=== PATIENT | female | born 1955 | race Caucasian/White ===

== ENCOUNTER 2021-12-27 04:00 | Outpatient (CLI) | payer MEDICARE, MEDICAID, SELFPAY ==
--- OUTSIDE RECORDS SUMMARY | 2022-01-03 10:57 | XMS_ITS | Encounter Summary ---
:1955 Author Organization [facility] Address [address] [place] [address] Care Team Providers Name Role Phone Elsewhere, Pcp Primary Care Provider Unavailable Reason for Visit MRI/CAT/PET Scan (Routine) - Authorized Specialty Diagnoses / Procedures Referred By Contact Refer red To Contact Radiology Diagnoses [place] [facility] Arun Waterman M.D. [facility] Procedures CT Abdomen Ablation [address] [place], [place] [address] Referral ID Status Reason Start Date Expiration Date Visits V isits Requested Authorized [id number] Authorized 05/08/2021 05/08/2022 1 1 Encounter Details Date Type Department Care Team Description 06/26/2021 Hospital Encounter Department of Arun Waterman M.D. [address] [place] [id number] Canceled (Patient: Radiology, Wily Dale M.D. [address] [place] [phone] Request) [facility] in [place], [place] [address] [place] [address] Social History Tobacco Use Types Packs/Day Years [...] do you attend yazdanism or Never 2018 uatsdin services? Do you [...] documented as of this encounter Care Teams Accounts Specialist Relationship Specialty Start Date End Date Elsewhere, Pcp PCP - General Internal Medicine 07/27/18 documented as of this encounter
--- OUTSIDE RECORDS SUMMARY | 2022-01-03 10:57 | XMS_ITS | Encounter Summary ---
:1955 Author Organization [facility] Address [address] [place] [address] Care Team Providers Name Role Phone Elsewhere, Pcp Primary Care Provider Unavailable Reason for Referral Outpatient (Routine) - Authorized Specialty Diagnoses / Procedures Referred By Contact Refer red To Contact Diagnoses Arun Lee M.D. [facility] Procedures US Assisted Guidance [address] [place], [place] [address] Referral ID Status Reason Start Date Expiration Date Visits V isits Requested Authorized [id number] Authorized 05/08/2021 05/08/2022 1 1 RI/CAT/PET Scan (Routine) - Authorized Specialty Diagnoses / Procedures Referred By Contact Refer red To Contact Radiology Diagnoses Arun Lee M.D. [facility] Procedures CT Abdomen Ablation [address] [place] [address] Referral ID Status Reason Start Date Expiration Date Visits V isits Requested Authorized [id number] Authorized 05/08/2021 05/08/2022 1 1 utpatient (Routine) - Authorized Specialty Diagnoses / Procedures Referred By Contact Refer red To Contact Diagnoses Arun Lee M.D. [facility] Procedures US Kidney Left [address] [place] [address] Referral ID Status Reason Start Date Expiration Date Visits V isits Requested Authorized [id number] Authorized 05/08/2021 05/08/2022 1 1 utpatient (Routine) - Authorized Specialty Diagnoses / Procedures Referred By Contact Refer red To Contact Vascular Medicine Diagnoses [place] [facility] Arun Waterman M.D. [place] [facility] [address] [place] [address] Referral ID Status Reason Start Date Expiration Date Visits V isits Requested Authorized [id number] Authorized 05/08/2021 05/08/2022 1 1 utpatient (Routine) - Authorized Specialty Diagnoses / Procedures Referred By Contact Refer red To Contact Anesthesiology Diagnoses [place] [facility] Arun Waterman M.D. [place] [facility] [address] [place], [place] [address] Referral ID Status Reason Start Date Expiration Date Visits V isits Requested Authorized [id number] Authorized 05/08/2021 05/08/2022 1 1 CLE TRIMMER Encounter Details Date Type Department Care Team Description 05/08/2021 Orders Only Department of [facility] (Primary Radiology, Moise MortonNEdilma Sánchez) [facility], in [place], [place] (Work) [address] [place] [phone] Social History Tobacco Use Types Packs/Day [...] or relatives? How often do you attend mosque or Never 2018 yarsanism services? Do you belong to any clubs or No 02/26/2019 organizations such as mosque groups, unions, fraternal or athletic groups, or [...] documented as of this encounter Care Teams Table Runner Relationship Specialty Start Date End Date Elsewhere, Pcp PCP - General Internal Medicine 07/27/18 documented as of this encounter
--- OUTSIDE RECORDS SUMMARY | 2022-01-03 10:57 | XMS_ITS | Clinical Summary ---
:1955 Author Organization [facility] Address [address] [place] [address] Care Team Providers Name Role Phone Elsewhere, Pcp Primary Care Provider Unavailable Source Comments Patient records contain information from all sites at [facility]. For routine questions regarding patient records, call [phone] during business hours, M-F 8:00 AM - 5:00 PM Central Time. Record requests for emergency care only can be directed to [phone] at any time.[facility] Allergies Active Allergy Reactions Severity Noted Date [...] Dr. Yeager on 04/20/2019 -admitted at the [facility] from 06/22/2018 - 06/23/2018, where [...] [facility]. Fibromyalgia 06/28/2015 Overview: On duloxetine. Pain currently [...] or relatives? How often do you attend judaism or Never 2018 latter day services? Do you belong to any clubs or No 02/26/2019 organizations such as judaism groups, unions, fraPromisePay or athletic groups, or school groups? How [...] Comments Blood Pressure 148/86 03/30/2020 1:16 PM PRIVACY COMPLIANCE MANAGER Pulse 61 03/30/2020 1:16 PM PRIVACY COMPLIANCE MANAGER Temperature 36.1 ??C (97 ??F) 03/30/2020 1:16 PM PRIVACY COMPLIANCE MANAGER Respiratory Rate 22 04/21/2019 11:15 AM PRIVACY COMPLIANCE MANAGER Oxygen Saturation 98% 03/30/2020 1:16 PM PRIVACY COMPLIANCE MANAGER Inhaled Oxygen Concentration - - Weight 90.2 kg (198 lb 13.7 oz) 03/30/2020 1:16 PM PRIVACY COMPLIANCE MANAGER Height 164.4 cm (5' 4.72) 03/30/2020 1:16 PM PRIVACY COMPLIANCE MANAGER Body Mass Index 33.37 03/30/2020 1:16 PM PRIVACY COMPLIANCE MANAGER Plan of Treatment Health Maintenance Due Date [...] e / Group Dates MEDICARE MEDICARE A [id number] 2004-Prese [address] [place] [address] [facility] [id number] 2021-Prese [phone] [address] Medicaid HMO nt 25 [place] [address] Advance Directives For more information, please contact: [phone] Latest Code Status on File Code Status Date Activated Date Inactivated Comments Full Code 04/19/2019 9:35 AM 04/21/2019 1:37 PM Full Code: Not Discussed Due to: Patient not available Full Code 07/06/2018 8:47 AM 04/19/2019 7:46 AM Full Code: Discussed Full Code 06/29/2018 6:17 PM 07/06/2018 8:47 AM Full Code: Not Discussed Due to: Patient not available Care Teams Goods Layer Relationship Specialty Start Date End Date Elsewhere, Pcp PCP - General Internal Medicine 07/27/18
--- OUTSIDE RECORDS SUMMARY | 2022-01-03 10:57 | XMS_ITS | Clinical Summary ---
:1955 Author Organization [employer] [facility] [place] [address] Care Team Providers Name Role Phone Kandace Mckeon Primary Care Provider Parish Ruffin MD Unavailable Unavailable Kwaku Wild MD Unavailable Kari Hunt PhD, LP Unavailable [phone] Allergies Active Allergy Reactions Severity Noted Date [...] 22 warfarin (COUMADIN) Take by mouth 6 34 Tablet 0 12/28/19 Active 2 mg mg (2 mg x 3 22 tabletIndications: tablets) every New onset atrial Sun, Wed, Fri; 4 fibrillation (HC), mg (2 mg x 2 Anticoagulation tablets) all monitoring, INR other days in the range 2.5-3.5 evening OR as directed warfarin (COUMADIN) Take by mouth 6 60 Tablet 0 11/22/1911/23/2 Discontinued 2 mg mg (2 mg x [...] 22 022 (Other - add tabletIndications: every Sun, Wed, note to specify New onset atrial Fri; 4 mg (2 mg x (E-cancel not fibrillation (HC), 2) all other days sent)) Anticoagulation in the evening OR monitoring, INR as directed range 2.5-3.5 warfarin (COUMADIN) Take by mouth 6 20 Tablet 0 12/21/19 1008/23 Discontinued 2 mg mg (2 mg x 3) 22 022 (Other - add tabletIndications: every Sun, Wed, note to specify New onset atrial Fri; [...] Hypertensive heart disease with heart failure 11/26/19 21 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 Anticoagulation monitoring, INR [...] Encounters Date Type Specialty Care Team Description 12/27/2021 Orders Only Scanner <No scans attac hed> 12/27/2021 Anticoagulation 1, [facility] (warfarin) Clinic 12/26/2021 Orders Only Lab, [facility] 12/26/2021 [...] Lab, [facility] 12/11/2021 Travel 12/11/2021 Telephone DeterKandace cerna Anticoagulati on (AC Venus, DO Orders) 12/06/2021 Orders Only Scanner <No scans attac hed> 12/06/2021 Orders Only Scanner <No scans attac hed> 11/30/2021 Refill DetertKandace Refill Reques t Venus, DO (Rizatriptan) 11/21/2021 Office Visit Kari Hunt Individual Kimberly Chaparro, PhD, LP 11/21/2021 Anticoagulation 1, [facility] (warfarin) Clinic 11/20/2021 Orders Only Lab, [facility] 11/20/2021 Travel 11/14/2021 Office Visit Kari Hunt Individual Kimberly Chaparro, PhD, LP 11/14/2021 Anticoagulation 1, [place] [facility]tico[facility] (warfarin) Clinic 11/13/2021 Orders Only Lab, [facility] Lab 11/13/2021 Ancillary Procedure 11/13/2021 Telephone Kandace Mckeon Results (INR) DO Venus 11/13/2021 Travel 11/07/2021 Anticoagulation 1, [facility] ([facility]) (warfarin) Clinic 11/06/2021 Orders Only Lab, [facility] Anticoagulation 11/06/2021 Travel 10/31/2021 Anticoagulation 1, [facility] Inr Anticoagulat ion (warfarin) Clinic 10/30/2021 Orders Only Lab, [facility] Lab 10/29/2021 Office Visit Kari Hunt Individual Therapy Krysta, PhD, LP 10/29/2021 Travel 10/18/2021 Refill DeterKandace cerna Refill Reques t Venus DO (Antifungal (Clotrimazole), Ventolin Hfa) 10/17/2021 Office Visit Kandace Mckeon Memory Loss; DO Venus Palpitations; M edication Management (met oprolol is taking 50 mg twice a day) 10/17/2021 Travel 10/10/2021 Anticoagulation 1, [place] [facility] (warfarin) Clinic (Lab/[facility]) 10/09/2021 Orders Only Lab, [facility] 10/09/2021 Travel 10/08/2021 Refill DetertKandace Refill Reques t (METOPROL Venus, DO SUC TAB 100MG E R) 10/03/2021 Telephone Kari Hunt Follow Up ( Returning Krysta, PhD, LP call) from Last 3 Months Immunizations Name Administration Dates Next Due AMB Influenza, IIV4 PF (=>6 mos 12/23/2019 Flulaval,Fluzone Fluarix)(Flu Clinic Only) COVID-19 vaccine (Moderna 05/04/2020, 04/06/2020 100mcg/0.5mL) PF, MDV COVID-19 vaccine ([employer] 01/19/2021 30mcg/0.3mL) PF, MDV Influenza RIV4 (Age [...] Encounters Date Type Specialty Care Team Description 01/08/2022 Orders Only Lab, [place] 01/16/2022 Office Visit Kari Hunt, PhD, LP [address] [facility] [place], [place] [address] (Wo rk) 01/23/2022 Office Visit Kari Hunt, PhD, LP [address] [place] [address] [place] [address] (Wo rk) 02/06/2022 Office Visit Kari Hunt, PhD, LP [address] [place] [address] [place] [address] (Wo rk) 02/13/2022 Office Visit Kari Hunt, PhD, LP [address] [facility] [place] [place] [address] (Wo rk) 04/04/2022 Office Visit Raulito Bruce, PhD, LP [address] [address] (Wo rk) 06/12/2022 Office Visit Kandace Mckeon ea, [address] [facility] [place] [place], [place] [address] (Wo rk) Health Maintenance [...] BLOOD Blood No Detert, PRESSURE-MAINTA Pressure Kandace Le panchito, INS BP LESS DO THAN 130/80 Follow up with General Yes Terence, providers by Reny Miranda, 06/21/17 ENVIRONMENTAL ASSISTANT Note: Formatting of this note might be d ifferent from the original. - appointment with dental provider by - appointment for DM eye exam and new ey eglasses by 06/21/17 Healthcare Directive General Yes Kam hay, Reny Miranda, ENVIRONMENTAL ASSISTANT Note: Formatting of this note might be d ifferent from the original. - work on completing healthcare directiv e by end of ACT episode Procedures Procedure Name Priority Date/Time Associated Diagnosis Comme nts SCAN-RADIOLOGY 12/27/2021 12:00 Results f or this REPORT AM CDT procedure are i n the results section. PROTIME-INR STAT 12/26/2021 1:38 New onset atrial [...] fibrillation (HC) from Last 3 Months Results SCAN-RADIOLOGY REPORT (12/27/2021 12:00 AM CDT) Narrative This result has an attachment that is no t available. Scanner OTHER (ABNORMAL) PROTIME-INR (12/26/2021 1:38 PM CDT)Only the most recent of8 results within the time period is included. athologist Signature INR 3.1 (H) <1.3 12/26/2021 [facility] 8:26 PM CDT LABORATORY-[facility] PROTIME 30.2 (H) 12.0 - 13.8 12/26/2021 [facility] sec 8:26 PM CDT LABORATORY-[facility] Specimen Anatomical Collection Method / Collection Time Recei dominguez Time (Source) Location / Volume Laterality Blood BLOOD SPECIMEN / Venipuncture / 12/26/2021 1:38 2021 1:38 Unknown Unknown PM CDT PM CDT Narrative [facility] LABORATORY-CENTRAL LABORAT ORY - 12/26/2021 8:26 PM [...] Organization Address City/State/ZIP Code Phon e Number [facility] [address] [place] [address] LABORATORY-CENTRAL 1999 LABORATORY (ABNORMAL) URINE ALBUMIN TO CREATININE RATIO, RANDOM (12/19/2021 1:43 PM CDT) Patholo gist Method Time Signature ALB RAND URINE 69.6 mg/L 12/20/2021 [facility] 6:57 AM CDT LABORATORY-[facility] CREATININE,URIN 0.65 g/L 12/20/[facility]21 [email or web address] AM [facility]T [facility] ALBUMIN TO 107.1 (H) <30.0 12/20/2021 [facility] CREATININE mg/g 6:57 AM CDT LABORATORY-[facility] RATIO,RAND UR creat TRAL LABORATORY Specimen Anatomical Collection Method Collection Time Receive d Time (Source) Location / / Volume Laterality Urine URINE SPECIMEN / Non-Blood / 12/19/2021 1:43 PM 12/19 1:43 Unknown Unknown CDT PM CDT Narrative [facility] LABORATORY-CENTRAL LABORAT ORY - 12/20/2021 6:57 AM [...] Organization Address City/State/ZIP Code Phon e Number [facility] meets [address] [place] [address] LABORATORY-CENTRAL 2000 LABORATORY (ABNORMAL) HEMOGLOBIN A1C MONITORING (POCT) (12/12/2021 2:19 PM CDT) Analysis Performed At Patho logist Time Signature HEMOGLOBIN A1C 6.5 (H) <=6.4 % 12/12/2021 [facility] MONITORING 2:32 PM CDT [place] (PO[facility] Specimen Anatomical Collection Method / Collection Time Recei dominguez Time (Source) Location / Volume Laterality Blood BLOOD SPECIMEN / Venipuncture / 12/12/2021 2:19 2021 2:23 Unknown Unknown PM CDT PM CDT Narrative [facility] - 2021 2:32 PM CDT ? [...] with : Untreated Anemias, Splenectomy ? Kandace Venus Mckeon DO CHEMISTRY Performing Organization Address City/State/ZIP Code Phon e Number [facility] [address] [place] [address] (ABNORMAL) BASIC METABOLIC PANEL (12/12/2021 2:19 PM CDT) Analysis Performed At [facility] logist Time Signature SODIUM 139 135 - 145 12/13/2021 [facility] mmol/L 2:26 PM [facility] POTASSIUM 3.9 3.5 - 5.0 12/13/2021 [facility] mmol/L 2:26 PM [facility] CHLORIDE 103 98 - 110 12/13/2021 [facility] mmol/L 2:26 PM [facility] CO2,TOTAL 27 21 - 31 12/13/2021 [facility] mmol/L 2:26 PM [facility] ANION GAP 9 5 - 18 12/13/2021 [facility] 2:26 PM [facility] GLUCOSE 205 (H) 65 - 100 12/13/2021 [facility] mg/dL 2:26 PM [facility] CALCIUM 9.1 8.5 - 10.5 12/13/2021 [facility] mg/dL 2:26 PM [facility] BUN 10 8 - 25 12/13/2021 [facility] mg/dL 2:26 PM [facility] CREATININE 0.99 0.57 - 12/13/2021 [facility] 1.11 mg/dL 2:26 PM [facility] BUN/CREAT RATIO 10 10 - 20 12/13/2021 [facility] HOSPITA L 2:26 PM [facility] eGFR 64 (L) >90 12/13/2021 [facility] mL/min/1.7 2:26 PM [facility] 3m2 LABORATORY Comment: As of 2021, [...] Organization Address City/State/ZIP Code Phon e Number [facility] [place]IP [address] [place] [address] [facility] [address] SCAN-EYE EXAM (12/06/2021 [...] For Patients: As a result of the 21st Century Cures Act, medical imaging exams and procedure reports are released immediately into your electronic medical record. You may view this report before your referring provider. If you have questions, please contact [facility] care provider. XR MAMMO CRYSTAL BILAT SCREEN [[id number]] CLINICAL HISTORY: ??This is an asymptoma tic 66 y.o. patient. INDICATION FOR EXAM: Mammogram Screening . TECHNIQUE: CC & MLO views were obtained. ??This study was evaluated with the assistance of Computer-Aided Detecti on. Breast Tomosynthesis was used in interpretation. COMPARISON FILM: Yes 10/19/20 [facility] 12/27/16 [facility] FINDINGS: ??The breasts have scattered a reas of fibroglandular density. There are no dominant masses, suspicious micro calcifications or areas of architectural distortion. Kandacejayden Warderyn BOOKER MAMMO from Last 3 Months Insurance Payer Benefit Plan / Subscriber ID Effective Dates Phone Addre ss Type Group MEDICARE PART B MEDICARE PART [id number] 2004-Presen ATTN: CLAIMS - HB USE ONLY B HB ONLY t [address] [place] [address] MEDICARE PPS HC MEDICARE [id number] 2004-Presen PO JASE X 2019 PPS [address] [place] [address] MEDICARE - PB MEDICARE PB [id number] 2004-Presen ATTN : CLAIMS USE ONLY ONLY t [address] [place] [address] UCARE [place] UCARE CONNECT [id number] 2021-Presen [address] [place] [address] Juni Metcalf Personal/Family Self 1955 [place] (Home) [address] [place] [address] Care Teams Washer And Capper Machine Operator Relationship Specialty Start Date End Date Bonifacio Mckeonara DO Venus PCP - General 12/25/09 [address] [place] [address] Parish Ruffin MD Pulmonology Pulmonary Medicine 12/04/11 Kwaku Wild MD Physical Medicine and 10/07/[address] [place] [id number] Kari Hunt, Psychologist Psychology 12/10/16 PhD, LP [address] [place] [address]
--- OUTSIDE RECORDS SUMMARY | 2022-01-03 10:57 | XMS_ITS | Encounter Summary ---
:1955 Author Organization [facility] Address [address] [place] [address] Care Team Providers Name Role Phone Elsewhere, Pcp Primary Care Provider Unavailable Encounter Details Date Type Department Care Team Description 05/09/2021 Orders Only Department of [place] [facility] Lab Exam (Primary Dx); Radiology, Gayla Leon, REdilmaNEdilma Contact With And (Suspected) Exposure To [address], in [phone] [place], [place] (Work) [address] [place] [phone] Social History Tobacco Use Types Packs/Day [...] or relatives? How often do you attend protestant or Never 2018 oriental orthodox services? Do you belong to any clubs or No 02/26/2019 organizations such as protestant groups, unions, fraternal or athletic groups, or [...] documented as of this encounter Care Teams Personal Financial Planner Relationship Specialty Start Date End Date Elsewhere, Pcp PCP - General Internal Medicine 07/27/18 documented as of this encounter
--- OUTSIDE RECORDS SUMMARY | 2022-01-03 10:57 | XMS_ITS | Encounter Summary ---
:1955 Author Organization [facility] Address [address] [place] [address] Care Team Providers Name Role Phone Elsewhere, Pcp Primary Care Provider Unavailable Encounter Details Date Type Department Care Team Description 05/09/2021 Clinical Communication Department of [place] Radiology, Homar Leon R.N. [facility] [phone] [place] [facility]) [address] [place] [address] Social History Tobacco Use Types [...] do you attend orthodox or Never 2018 bahai services? Do you [...] documented as of this encounter Care Teams Purse Maker Relationship Specialty Start Date End Date Elsewhere, Pcp PCP - General Internal Medicine 07/27/18 documented as of this encounter
--- OUTSIDE RECORDS SUMMARY | 2022-01-03 10:57 | XMS_ITS | Encounter Summary ---
:1955 Author Organization [facility] Address [address] [place] [address] Care Team Providers Name Role Phone Elsewhere, Pcp Primary Care Provider Unavailable Encounter Details Date Type Department Care Team Description 05/08/2021 Documentation Preoperative Evaluation Cristy Navarro, [place] in [place], [place], C.N.P ., M.S.N. [address] [place] [phone] (Wo rk) Social History Tobacco Use Types [...] or relatives? How often do you attend scientologist or Never 2018 caodaism services? Do you belong to any clubs or No 02/26/2019 organizations such as scientologist groups, unions, fraternal or athletic groups, or [...] The patient was not seen in [facility]. ICAL PHARMACIST documented in this encounter Plan of Treatment Not on filedocumented as of this encounter Visit Diagnoses Not on filedocumented in this encounter Additional Health Concerns Assessment Noted Time PHQ-9 Depression Total Score: 11 05/04/2013 4:05 PM CS T documented as of this encounter Care Teams Game Developer Relationship Specialty Start Date End Date Elsewhere, Pcp PCP - General Internal Medicine 07/27/18 documented as of this encounter
--- OUTSIDE RECORDS SUMMARY | 2022-01-03 10:57 | XMS_ITS | Encounter Summary ---
:1955 Author Organization [facility] Address [address] [place] [address] Care Team Providers Name Role Phone Elsewhere, Pcp Primary Care Provider Unavailable Reason for Visit Outpatient (Routine) - Closed Specialty Diagnoses / Procedures Referred By Contact Refer red To Contact Radiology Diagnoses Mass Kidney Ally Bar M.D. [address] [phone] Referral ID Status Reason Start Date Expiration Date Visits Requ ested Visits Authorized [id number] Closed 05/03/2021 05/03/2022 1 1 Encounter Details Date Type Department Care Team Description 05/09/2021 Virtual Visit Department of Ally Bar M.D. [address] [place] [phone] Mass Kidney (Primary Dx); Radiology, Cristy Sands APRN, C.N.P., M.S.N. [address] [place] [phone] Atrial Fibrillation Paroxysmal (HCC); [facility], in Unsteadin ess Gait Disorder Non Orthopedic; [place], [place] Anticoagulant Therapy [address] [place] [phone] Social History Tobacco Use Types Packs/Day Years [...] or relatives? How often do you attend samaritan or Never 2018 confucianist services? Do you belong to any clubs or No 02/26/2019 organizations such as samaritan groups, unions, fraternal or athletic groups, or [...] page the [facility] nurse pager at [phone] Friday through Friday 7 a.m. to 5 p.m. or contact the note author. We spent over half of a total 30 minutes with the patient in counseling and discussion and/or coordination of care as described above. PING COORDINATOR documented in this encounter Plan of Treatment Not on filedocumented as of this encounter Visit Diagnoses Diagnosis Mass Kidney - Primary Atrial Fibrillation Paroxysmal (HCC) Unsteadiness Gait Disorder Non Orthopedi c Anticoagulant Therapy documented in this encounter Additional Health Concerns Assessment Noted Time PHQ-9 Depression Total Score: 11 05/04/2013 4:05 PM CS T documented as of this encounter Care Teams Irrigation District Manager Relationship Specialty Start Date End Date Elsewhere, Pcp PCP - General Internal Medicine 07/27/18 documented as of this encounter
--- OUTSIDE RECORDS SUMMARY | 2022-01-03 10:58 | XMS_ITS | Encounter Summary ---
:1955 Author Organization [facility] Address [address] [place] [address] Care Team Providers Name Role Phone Elsewhere, Pcp Primary Care Provider Unavailable Encounter Details Date Type Department Care Team Description 05/02/2021 Hospital Encounter Department of Laboratory Yamile Watts M.D. [facility] Kidney Medicine and Pathology, [facility] in [place], [place] [address] [place] [address] Social History Tobacco Use Types Packs/Day [...] do you attend quaker or Never 2018 orthodoxy services? Do you belong to any clubs [...] Procedure Name Priority Date/Time Associated Comments Diagnosis AZ OSMOLALITY ASSAY Routine 05/02/2021 10:17 Resu lts for this URINE AM CARBON BLOCKS PRESS OPERATOR procedure are i n the results section. DIPSTICK, U Routine 05/02/2021 10:17 Results for this AM CARBON BLOCKS PRESS OPERATOR procedure are i n the results section. PH, RANDOM, U Routine 05/02/2021 10:17 Results fo r this AM CARBON BLOCKS PRESS OPERATOR procedure are i n the results section. MICROSCOPIC MANUAL Routine 05/02/2021 10:17 Resul ts for this AM CARBON BLOCKS PRESS OPERATOR procedure are i n the results section. URINALYSIS WITH Routine 05/02/2021 10:17 Mass Kidney Results for this MICROSCOPIC AM CARBON BLOCKS PRESS OPERATOR procedure are i n the results section. documented in this encounter Results Dipstick, Urine (05/02/2021 10:17 AM CARBON BLOCKS PRESS OPERATOR) [facility] gist Method Time Signature Hemoglobin, Negative Negative 05/02/2021 DTL QL, U 11:20 AM CARBON BLOCKS PRESS OPERATOR Leukocyte Negative Negative 05/02/2021 DTL Esterase, U 11:20 AM CARBON BLOCKS PRESS OPERATOR Nitrite, U Negative Negative 05/02/2021 DTL 11:20 AM CARBON BLOCKS PRESS OPERATOR Ketone, U Negative Negative 05/02/2021 DTL mg/dL 11:20 AM CARBON BLOCKS PRESS OPERATOR Glucose, U Negative Negative 05/02/2021 DTL mg/dL 11:20 AM CARBON BLOCKS PRESS OPERATOR Specimen Anatomical Collection Method Collection Time Receive d Time (Source) Location / / Volume Laterality Urine 05/02/2021 10:17 05/02/2021 AM CARBON BLOCKS PRESS OPERATOR 11:05 AM CARBON BLOCKS PRESS OPERATOR Kristen Watts M.D. LAB URINE ORDERABLES Performing Organization Address City/[facility] Phon e Number [facility] - [address] Osmolality, Urine (05/02/2021 10:17 AM CARBON BLOCKS PRESS OPERATOR) athologist Signature Osmolality, U 519 150 - 1150 05/02/2021 DTL mOsm/kg 12:05 PM CARBON BLOCKS PRESS OPERATOR Specimen Anatomical Collection Method Collection Time Receive d Time (Source) Location / / Volume Laterality Urine 05/02/2021 10:17 05/02/2021 AM CARBON BLOCKS PRESS OPERATOR 11:05 AM CARBON BLOCKS PRESS OPERATOR Kristen Watts M.D. LAB URINE ORDERABLES Performing Organization Address City/[facility] Phon e Number [facility] - [address] [place] [address] [address] [facility] pH, Random, Urine (05/02/2021 10:17 AM CARBON BLOCKS PRESS OPERATOR) P athologist Signature pH, Random, U 5.1 4.5 - 8.0 05/02/2021 DTL 12:05 PM CARBON BLOCKS PRESS OPERATOR Specimen Anatomical Collection Method Collection Time Receive d Time (Source) Location / / Volume Laterality Urine 05/02/2021 10:17 05/02/2021 AM CARBON BLOCKS PRESS OPERATOR 11:05 AM CARBON BLOCKS PRESS OPERATOR Kristen Watts M.D. LAB URINE ORDERABLES Performing Organization Address [facility] Phon e Number [facility] - [address] [place] [address] (ABNORMAL) Microscopic Manual (05/02/2021 10:17 AM CARBON BLOCKS PRESS OPERATOR) P athologist Signature Microscopy Abnormal 05/02/2021 DTL 1:14 PM CARBON BLOCKS PRESS OPERATOR RBC <3 <3 /hpf 05/02/2021 DTL 1:14 PM CARBON BLOCKS PRESS OPERATOR WBC 1-3 /hpf 05/02/2021 DTL 1:14 PM CARBON BLOCKS PRESS OPERATOR Comment: ----REFERENCE VALUE---- 1-3 ??(Males) 1-10 (Females) Squamous Epithelial Cells, U 4-10 /hpf 05/02/2021 1:14 PM CARBON BLOCKS PRESS OPERATOR DTL Bacteria Present (A) 05/02/2021 1:14 PM CARBON BLOCKS PRESS OPERATOR DTL Specimen Anatomical Collection Method Collection Time Receive d Time (Source) Location / / Volume Laterality Urine 05/02/2021 10:17 05/02/2021 AM CARBON BLOCKS PRESS OPERATOR 11:05 AM CARBON BLOCKS PRESS OPERATOR Kristen Watts M.D. LAB URINE ORDERABLES Performing Organization Address City/[facility] Phon e Number [address] (ABNORMAL) Urinalysis with Microscopic: Urine, Midstream (05/02/2021 10:17 AM CARBON BLOCKS PRESS OPERATOR) Patholo gist Method Time Signature Source Urine, Urine, 05/02/2021 DTL Midstream 11:04 AM CARBON BLOCKS PRESS OPERATOR Color, U Yellow 05/02/2021 DTL 11:05 AM CARBON BLOCKS PRESS OPERATOR Clarity, U Cloudy (A) 05/02/2021 DTL 11:05 AM CARBON BLOCKS PRESS OPERATOR Protein, U 24 <26 mg/dL 05/02/2021 DTL 12:15 PM CARBON BLOCKS PRESS OPERATOR Protein/Osmol 0.46 (H) <0.42 05/02/2021 DTL ality ratio 12:15 PM CARBON BLOCKS PRESS OPERATOR Predicted 24 332 mg/24 h 05/02/2021 DTL Hr Protein 12:15 PM CARBON BLOCKS PRESS OPERATOR Predicted 82-1344 mg/24 h 05/02/2021 DTL Range 12:15 PM CARBON BLOCKS PRESS OPERATOR Specimen Anatomical Collection Method Collection Time Receive d Time (Source) Location / / Volume Laterality Urine (Urine, 05/02/2021 10:17 05/02/2021 Midstream) AM CARBON BLOCKS PRESS OPERATOR 11:04 AM CARBON BLOCKS PRESS OPERATOR Kristen Watts M.D. LAB URINE ORDERABLES Performing Organization Address City/State/ZIP Code Phon e Number [facility] - [address] [place], [place] [address] [facility] [place] [address] Laboratories-[facility] [address] documented in this encounter Visit Diagnoses Diagnosis Mass Kidney documented in this encounter Additional Health Concerns Assessment Noted Time PHQ-9 Depression Total Score: 11 05/04/2013 4:05 PM CS T documented as of this encounter Care Teams Employment Evaluator/Case Manager Relationship Specialty Start Date End Date Elsewhere, Pcp PCP - General Internal Medicine 07/27/18 documented as of this encounter
--- OUTSIDE RECORDS SUMMARY | 2022-01-03 10:58 | XMS_ITS | Encounter Summary ---
:1955 Author Organization [facility] Address [address] [place] [address] Care Team Providers Name Role Phone Elsewhere, Pcp Primary Care Provider Unavailable Reason for Referral Outpatient (Routine) - Closed Specialty Diagnoses / Procedures Referred By Contact Refer red To Contact Urology Brian Mathias M.D . [address] [address] Referral ID Status Reason Start Date Expiration Date Visits Requ ested Visits Authorized [id number] Closed 05/04/2020 05/04/2021 1 1 DESIGNER Encounter Details Date Type Department Care Team Description 05/04/2020 Orders Only Department of Urology Brian Mathias Ki dney And Ureter in [place] Carlos Disorder (Prim raman Dx) [address] [address] Social History Tobacco Use Types Packs/Day Years [...] or relatives? How often do you attend taoist or Never 2018 holiness services? Do you belong to any clubs or No 02/26/2019 organizations such as taoist groups, unions, [employer] or athletic groups, or school groups? How [...] documented as of this encounter Care Teams Brick Tender Relationship Specialty Start Date End Date Elsewhere, Pcp PCP - General Internal Medicine 07/27/18 documented as of this encounter
--- OUTSIDE RECORDS SUMMARY | 2022-01-03 10:58 | XMS_ITS | Encounter Summary ---
:1955 Author Organization [facility] Address [address] [place] [address] Care Team Providers Name Role Phone Elsewhere, Pcp Primary Care Provider Unavailable Encounter Details Date Type Department Care Team Description 03/07/2021 Clinical Communication Department of Rosemarie Quezada Cardiovascular Medicine A, RMary Ann in [facility] rotary filter operator [address] [facility] [address] [place] [phone] [phone] Social History Tobacco Use Types Packs/Day Years [...] do you attend judaism or Never 2018 tenriism services? Do you belong to any clubs or No 02/26/2019 organizations such as judaism groups, unions, fraternal or athletic groups, or [...] Rosemarie Quezada R.N. - 03/07/2021 12:52 PM LEAD DATABASE ADMINISTRATOR Call placed to [facility] assisted [facility] facility to relay that Dr. Villegas did review the most recent monitor and did not see any rhythm issues of concern at this time so no recommendations for change in plan of care. They are requesting a copy of the monitor report be faxed to [phone] [facility] Nursing. I will see if Dr. Villegas's medical education manager can fax that information to them DATABASE ADMINISTRATOR documented in this encounter Plan of Treatment Not on filedocumented as of this encounter Visit Diagnoses Not on filedocumented in this encounter Additional Health Concerns Assessment Noted Time PHQ-9 Depression Total Score: 11 05/04/2013 4:05 PM CS T documented as of this encounter Care Teams Apprentice Jockey Relationship Specialty Start Date End Date Elsewhere, Pcp PCP - General Internal Medicine 07/27/18 documented as of this encounter
--- OUTSIDE RECORDS SUMMARY | 2022-01-03 10:58 | XMS_ITS | Encounter Summary ---
:1955 Author Organization [facility] Address [address] [place] [address] Care Team Providers Name Role Phone Elsewhere, Pcp Primary Care Provider Unavailable Reason for Referral MRI/CAT/PET Scan (Routine) - Closed Specialty Diagnoses / Procedures Referred By Contact Refer red To Contact Radiology Diagnoses Mass Kidney Ally Bar M.D. [facility] Procedures CT Chest without IV Contrast [address] [place] [address] Referral ID Status Reason Start Date Expiration Date Visits Requ ested Visits Authorized [id number] Closed 05/03/2021 05/03/2022 1 1 HANDISE MANAGER Reason for Visit MRI/CAT/PET Scan (Routine) - Closed Specialty Diagnoses / Procedures Referred By Contact Refer red To Contact Radiology Diagnoses Mass Kidney Ally Bar M.D. [facility] Procedures CT Chest without IV Contrast [address] [place] [address] Referral ID Status Reason Start Date Expiration Date Visits Requ ested Visits Authorized [id number] Closed 05/03/2021 05/03/2022 1 1 Encounter Details Date Type Department Care Team Description 05/03/2021 Hospital Encounter Department of [place], Ally A, M.D. Mass Kidney Radiology, [place] [address] [facility], in [place], [place] [address] 200 [facility] [place] [address] Social History Tobacco Use Types [...] do you attend sabianist or Never 2018 jain services? Do you [...] for this IV CONTRAST (most inpatients PM MERCHANDISE MANAGER procedure a re in and all the results outpatients) section. documented in this encounter Results CT Chest without IV Contrast (05/03/2021 1:35 PM MERCHANDISE MANAGER) Anatomical Region Laterality Modality Chest, Thoracic RST LOS, Thoracic ARZ N/A Co mputed Tomography, Computed LOS, Thoracic FLA LOS Tomography Specimen (Source) Anatomical Collection Method Collection Time Re ceived Time Location / / Volume Laterality 05/03/2021 1:42 PM MERCHANDISE MANAGER Impressions 05/03/2021 1:53 PM MERCHANDISE MANAGER 1. Increased clustered nodularity with new dominant 11 x 7 mm nodule in the posterior basal left lower lobe, indeter minate but likely infectious/inflammatory rather than neop lastic. CT follow-up suggested in 3 months. 2. Stable 5 x 4 mm left upper lobe nodul e which has decreased since 08/18/2019. 3. Scattered additional tiny nodules are stable since 03/30/2020. Narrative 05/03/2021 1:53 PM MERCHANDISE MANAGER EXAM: CT CHEST WITHOUT IV CONTRAST COMPARISON: [facility] CT chest 021. FINDINGS: The 5 x [...] EXAM: CT CHEST WITHOUT IV CONTRAST COMPARISON: [facility] CT chest 021. FINDINGS: The 5 x [...] documented as of this encounter Care Teams Dental Officer Relationship Specialty Start Date End Date Elsewhere, Pcp PCP - General Internal Medicine 07/27/18 documented as of this encounter
--- OUTSIDE RECORDS SUMMARY | 2022-01-03 10:58 | XMS_ITS | Encounter Summary ---
:1955 Author Organization [facility] Address [address] [place] [address] Care Team Providers Name Role Phone Elsewhere, Pcp Primary Care Provider Unavailable Reason for Visit Outpatient (Routine) - Closed Specialty Diagnoses / Procedures Referred By Contact Refer red To Contact Otorhinolaryngology Diagnoses [facility]eness [facility] [address] [place] [phone] Referral ID Status Reason Start Date Expiration Date Visits Requ ested Visits Authorized [id number] Closed 03/30/2020 03/30/2021 1 1 Encounter Details Date Type Department Care Team Description 04/11/2020 Comprehensive Visit Department of Wendy Kim ess Otorhinolaryngology in [place]a Mart[facility]nez [place], [place] P.A.-C., [address] [place] [address] 200 [facility] [phone] [place] [address] Social History Tobacco Use Types Packs/Day Years [...] do you attend confucianist or Never 2018 baptist services? Do you belong to any clubs [...] has non-labored breathing. No audible stridor. Skin: Snead and dry. Psych: Appropriate mood and affect. [...] see her back on a p.r.n. basis. R CLERK documented in this encounter Plan of Treatment Not on filedocumented as of this encounter Visit Diagnoses Diagnosis Hoarseness Chronic documented in this encounter Additional Health Concerns Assessment Noted Time PHQ-9 Depression Total Score: 11 05/04/2013 4:05 PM CS T documented as of this encounter Care Teams Flooring Installer Relationship Specialty Start Date End Date Elsewhere, Pcp PCP - General Internal Medicine 07/27/18 documented as of this encounter
--- OUTSIDE RECORDS SUMMARY | 2022-01-03 10:58 | XMS_ITS | Encounter Summary ---
:1955 Author Organization [facility] Address [address] [place] [address] Care Team Providers Name Role Phone Elsewhere, Pcp Primary Care Provider Unavailable Encounter Details Date Type Department Care Team Description 05/02/2021 Hospital Encounter Department of Kristen Watts, Kidney And Ureter Disorder; Laboratory Medicine Bess henderson; and Pathology, Diabetes Berna itus Type 2 (HCC) [facility], in [place], [place] [address] [place] [address] Social History Tobacco Use Types Packs/Day Years [...] do you attend orthodox or Never 2018 druze services? Do you [...] AM Diabetes Mellitu s Results for this ASSURANCE SENIOR MANAGER INSURANCE Type 2 (HCC) procedure are i n the results section. BASIC METABOLIC Routine 05/02/2021 10:07 AM Mass Kidney Resul ts for this PANEL, S/P ASSURANCE SENIOR MANAGER INSURANCE procedure are i n the results section. documented in this encounter Results (ABNORMAL) Hemoglobin A1c (05/02/2021 10:07 AM ASSURANCE SENIOR MANAGER INSURANCE) P athologist Signature Hemoglobin A1c, 6.7 (H) 4.0 - 5.6 05/02/2021 DTL B % 10:48 AM ASSURANCE SENIOR MANAGER INSURANCE Comment: Hemoglobin A1c values greater than or eq ual to 6.5 percent are diagnostic for diabetes mellitus. ?? Diagnosis should be confirmed by repeat testing. ??In diabet ic patients, HbA1c goals should be discussed with healthcar e provider. Specimen Anatomical Collection Method Collection Time Receive d Time (Source) Location / / Volume Laterality Blood (Blood, 05/02/2021 10:07 05/02/2021 Venous) AM ASSURANCE SENIOR MANAGER INSURANCE 10:27 AM ASSURANCE SENIOR MANAGER INSURANCE Kristen Watts M.D. LAB BLOOD ADD-ON Performing Organization Address City/State/ZIP Code Phon e Number [facility] - [address] [place] [address] [facility] [place] [address] Laboratories-[facility] 200 [facility] Basic Metabolic Panel (05/02/2021 10:07 AM ASSURANCE SENIOR MANAGER INSURANCE) P athologist Signature Potassium, S 4.1 3.6 - 5.2 05/02/2021 DTL mmol/L 11:21 AM ASSURANCE SENIOR MANAGER INSURANCE Sodium, S 141 135 - 145 05/02/2021 DTL mmol/L 11:21 AM ASSURANCE SENIOR MANAGER INSURANCE Chloride, S 103 98 - 107 05/02/2021 DTL mmol/L 11:21 AM ASSURANCE SENIOR MANAGER INSURANCE Bicarbonate, S 26 22 - 29 05/02/2021 DTL mmol/L 11:21 AM ASSURANCE SENIOR MANAGER INSURANCE Anion Gap 12 7 - 15 05/02/2021 DTL 11:21 AM ASSURANCE SENIOR MANAGER INSURANCE BUN (Blood Urea 12 6 - 21 05/02/2021 DTL Nitrogen), S mg/dL 11:21 AM ASSURANCE SENIOR MANAGER INSURANCE Creatinine 0.92 0.59 - 05/02/2021 DTL 1.04 mg/dL 11:21 AM ASSURANCE SENIOR MANAGER INSURANCE eGFR-Non 66 >=60 05/02/2021 DTL Black/ mL/min/BSA 11:21 AM ASSURANCE SENIOR MANAGER INSURANCE Mexican Comment: ----ADDITIONAL INFORMATION---- Estimated GFR calculated using the 2009 CKD_EPI creatinine equation. eGFR-Black/ 76 >=60 mL/min/BSA 2021 11:21 AM ASSURANCE SENIOR MANAGER INSURANCE DTL Comment: ----ADDITIONAL INFORMATION---- Estimated GFR calculated using the 2009 CKD_EPI creatinine equation. Calcium, Total, S 9.3 8.8 - 10.2 mg/dL 05/02/2021 11:2 1 AM ASSURANCE SENIOR MANAGER INSURANCE DTL Glucose, S 128 70 - 140 mg/dL 05/02/2021 11:21 AM ASSURANCE SENIOR MANAGER INSURANCE DTL Specimen Anatomical Collection Method Collection Time Receive d Time (Source) Location / / Volume Laterality Blood (Blood, 05/02/2021 10:07 05/02/2021 Venous) AM ASSURANCE SENIOR MANAGER INSURANCE 10:54 AM ASSURANCE SENIOR MANAGER INSURANCE Kristen Watts M.D. LAB BLOOD ADD-ON Performing Organization Address City/State/ZIP Code Phon e Number [facility] - [address] [place], [place] [address] [facility] [address] Laboratories-[facility] [address] documented in this encounter Visit Diagnoses Diagnosis Kidney And Ureter Disorder Mass Kidney Diabetes Mellitus Type 2 (HCC) documented in this encounter Additional Health Concerns Assessment Noted Time PHQ-9 Depression Total Score: 11 05/04/2013 4:05 PM CS T documented as of this encounter Care Teams Rivet Driver Relationship Specialty Start Date End Date Elsewhere, Pcp PCP - General Internal Medicine 07/27/18 documented as of this encounter
--- OUTSIDE RECORDS SUMMARY | 2022-01-03 10:58 | XMS_ITS | Encounter Summary ---
:1955 Author Organization [facility] Address [address] [place] [address] Care Team Providers Name Role Phone Elsewhere, Pcp Primary Care Provider Unavailable Reason for Visit Reason Comments Dizziness Atrial Fibrillation Encounter Details Date Type Department Care Team Description 01/25/2021 Clinical Department of Clay Maker Dizziness; Atr ial Communication Cardiovascular , Bess Randall Fibrillation Medicine in [place], [place] [address] [place] [address] Social History Tobacco Use Types Packs/Day Years [...] do you attend jewish or Never 2018 christian services? Do you [...] Quinones - 01/26/2021 11:11 AM CDT Called [email or web address] [phone]. She will connect with patient and have patient's PCIM order a 48-hour Holter Monitor, as patient hasn't had any rhythm monitoring done. Telephone Encounter - Carlota Casiano - 01/25/2021 2:35 PM CDT Symptoms ?? Goal or summary: Appt w/Testing ?? Recent change/new symptom[facility][phone][facility] check [facility], says things are off says [...] documented as of this encounter Care Teams Airplane Fueler Relationship Specialty Start Date End Date Elsewhere, Pcp PCP - General Internal Medicine 07/27/18 documented as of this encounter
--- OUTSIDE RECORDS SUMMARY | 2022-01-03 10:58 | XMS_ITS | Encounter Summary ---
:1955 Author Organization [facility] Address [address] [place] [address] Care Team Providers Name Role Phone Elsewhere, Pcp Primary Care Provider Unavailable Encounter Details Date Type Department Care Team Description 05/04/2020 Clinical Communication Department of Urology Stacy Mathias in [place], M.D. [place] [address] [place] [address] Social History Tobacco Use Types Packs/Day Years [...] or relatives? How often do you attend advent or Never 2018 gnosticism services? Do you belong to any clubs or No 02/26/2019 organizations such as advent groups, unions, fraternal or athletic groups, or [...] office visit. All questions answered. Orders placed. IC ADMINISTRATION PROFESSOR documented in this encounter Plan of Treatment Not on filedocumented as of this encounter Visit Diagnoses Not on filedocumented in this encounter Additional Health Concerns Assessment Noted Time PHQ-9 Depression Total Score: 11 05/04/2013 4:05 PM CS T documented as of this encounter Care Teams Travel Registered Nurse Oncology Relationship Specialty Start Date End Date Elsewhere, Pcp PCP - General Internal Medicine 07/27/18 documented as of this encounter
--- OUTSIDE RECORDS SUMMARY | 2022-01-03 10:58 | XMS_ITS | Encounter Summary ---
:[address] [facility] Address [address] [place] [address] Care Team Providers Name Role Phone Elsewhere, Pcp Primary Care Provider Unavailable Reason for Referral MRI/CAT/PET Scan (Routine) - Closed Specialty Diagnoses / Procedures Referred By Contact Refer steven To Contact Radiology Diagnoses Kidney And Ureter Disorder Brian Mathias M.D. [facility] Procedures CT Abdomen with IV Contrast CT Abdomen without and with IV Contrast [address] [place] [address] Referral ID Status Reason Start Date Expiration Date Visits Requ ested Visits Authorized [id number] Closed 04/11/2020 04/11/2021 1 1 R IN SUPERVISOR Reason for Visit Outpatient (Routine) - Closed Specialty Diagnoses / Procedures Referred By Contact Reggie harris To Contact Urology Zac Gonzalez M.D. [facility] [address] [place] [address] Referral ID Status Reason Start Date Expiration Date Visits Requ ested Visits Authorized [id number] Closed 01/05/2020 01/04/2021 1 1 Encounter Details Date Type Department Care Team Description 04/11/2020 Office Visit Department of Urology Brian Mathias Ma ss Kidney (Primary Dx); in Bess Velasco Kidney And Ure ter Disorder [place] [address] [place] [phone] Social History Tobacco Use Types Packs/Day Years [...] or relatives? How often do you attend anglican or Never 2018 nondenominational services? Do you belong to any clubs or No 02/26/2019 organizations such as anglican groups, unions, fraternal or athletic groups, or [...] PM CST PROGRESS NOTE REASON FOR VISIT REAMING MACHINE OPERATOR Calendar HISTORY OF PRESENT ILLNESS Ms. Metcalf [...] by: Brian Mathias M.D. 04/11/2020 7:00 AM LOWER IN SUPERVISOR Answers for HPI/ROS submitted by the patient [...] Yes Bruises/bleeds easily: Yes Frequent urination: Yes R IN SUPERVISOR documented in this encounter Plan of Treatment Not on filedocumented as of this encounter Results CT Abdomen with IV Contrast (04/24/2020 1:25 PM LOWER IN SUPERVISOR) Anatomical Region Laterality Modality Abdomen, Abdominal RST LOS, Abdominal N/A Co mputed Tomography, Computed ARZ LOS, Abdominal FLA LOS Tomography Specimen (Source) Anatomical Collection Method Collection Time Re ceived Time Location / / Volume Laterality 04/24/2020 2:21 PM LOWER IN SUPERVISOR Impressions 04/24/2020 2:47 PM LOWER IN SUPERVISOR 1. No change since 11/30/2019 indeterminate 1.4 cm left renal mass likely representing primary renal neoplasm. 2. Small hiatal hernia. 3. Probable osteoporosis. Narrative 04/24/2020 2:47 PM LOWER IN SUPERVISOR EXAM: ??CT ABDOMEN WITH IV CONTRAST COMPARISON: [...] documented as of this encounter Care Teams Refrigeration Service Inspector Relationship Specialty Start Date End Date Elsewhere, Pcp PCP - General Internal Medicine 07/27/18 documented as of this encounter
--- OUTSIDE RECORDS SUMMARY | 2022-01-03 10:58 | XMS_ITS | Encounter Summary ---
:1955 Author Organization [facility] Address [address] [place] [address] Care Team Providers Name Role Phone Elsewhere, Pcp Primary Care Provider Unavailable Reason for Referral MRI/CAT/PET Scan (Routine) - Closed Specialty Diagnoses / Procedures Referred By Contact Refer red To Contact Radiology Diagnoses Mass Kidney Kristen Watts M.D. [place] Procedures CT Abdomen Pelvis with IV Contrast CT Abdomen Pelvis without and with IV Contrast 200 [place] [address] Referral ID Status Reason Start Date Expiration Date Visits Requ ested Visits Authorized [id number] Closed 02/06/2021 02/06/2022 1 1 L SUPPORT MANAGER Reason for Visit MRI/CAT/PET Scan (Routine) - Closed Specialty Diagnoses / Procedures Referred By Contact Refer steven To Contact Radiology Diagnoses Mass Kidney Kristen Watts M.D. [place] Procedures CT Abdomen Pelvis with IV Contrast CT Abdomen Pelvis without and with IV Contrast 200 [place] [address] Referral ID Status Reason Start Date Expiration Date Visits Requ ested Visits Authorized [id number] Closed 02/06/2021 02/06/2022 1 1 Encounter Details Date Type Department Care Team Description 05/02/2021 Hospital Encounter Department of Radiology, Yamile Watts M.D. [facility] Kidney [facility], in [place], [place] [address] [place] [phone] Social History Tobacco Use Types Packs/Day [...] do you attend quaker or Never 2018 protestant services? Do you belong to any clubs [...] this WITH IV CONTRAST (most inpatients AM LEGAL SUPPORT MANAGER procedu re are in and all the results outpatients) section. CREATININE, POCT, Routine 05/02/2021 11:23 Result s for this B AM LEGAL SUPPORT MANAGER procedure are i n the results section. CREATININE, POCT, Routine 05/02/2021 11:23 Result s for this B AM LEGAL SUPPORT MANAGER procedure are i n the results section. documented in this encounter Results CT Abdomen Pelvis with IV Contrast (05/02/2021 11:48 AM LEGAL SUPPORT MANAGER) Anatomical Region Laterality Modality Abdomen, Pelvis, Abdominal RST LOS, N/A Comp uted Tomography, Computed Abdominal ARZ LOS, Abdominal FLA LOS Godwin ography Specimen (Source) Anatomical Collection Method Collection Time Re ceived Time Location / / Volume Laterality 05/02/2021 11:49 AM LEGAL SUPPORT MANAGER Impressions 05/02/2021 1:00 PM LEGAL SUPPORT MANAGER 1. Slight interval enlargement of the 1.6 cm left renal mass likely representing a primary renal neoplasm. 2. No evidence of metastatic disease in the abdomen or pelvis. Narrative 05/02/2021 1:00 PM LEGAL SUPPORT MANAGER EXAM: ??CT ABDOMEN PELVIS WITH IV CONTRAST [...] CT PROCEDURES Creatinine, POCT (05/02/2021 11:23 AM LEGAL SUPPORT MANAGER) athologist Signature Creatinine, 0.7 0.6 - 1.0 05/02/2021 PCDT POCT, B mg/dL 11:28 AM LEGAL SUPPORT MANAGER Comment: ----ADDITIONAL INFORMATION---- Performed at the Point of Care Specimen Anatomical Collection Method Collection Time Receive d Time (Source) Location / / Volume Laterality Blood 05/02/2021 11:23 05/02/2021 AM LEGAL SUPPORT MANAGER 11:29 AM LEGAL SUPPORT MANAGER Unknown Provider LAB POCT ORDERABLES - DEVICE Performing Organization Address City/State/ZIP Code Phon e Number POC [facility] PERFORMING [address] [place] [address] LABS PCDT [facility] [place] [address] [facility] [address] Creatinine, POCT (05/02/2021 11:23 AM LEGAL SUPPORT MANAGER) P athologist Signature eGFR-Black/Afri >90 >=60 05/02/2021 PCDT can Austrian, mL/min/BSA 11:29 AM LEGAL SUPPORT MANAGER POCT Comment: ----ADDITIONAL INFORMATION---- Estimated GFR calculated using the 2009 CKD_EPI creatinine equation. eGFR Non-Black/, >90 >=60 mL/min/BSA 05/02/2021 11:29 AM LEGAL SUPPORT MANAGER PCDT POCT Comment: ----ADDITIONAL INFORMATION---- Estimated GFR calculated using the 2009 CKD_EPI creatinine equation. Specimen Anatomical Collection Method Collection Time Receive d Time (Source) Location / / Volume Laterality Blood 05/02/2021 11:23 05/02/2021 AM LEGAL SUPPORT MANAGER 11:29 AM LEGAL SUPPORT MANAGER Unknown Provider LAB POCT ORDERABLES - DEVICE Performing Organization Address City/State/ZIP Code Phon e Number [facility] PERFORMING [address] [place] [address] LABS PCDT [facility] [place] [address] [facility] [address] documented in this encounter Visit Diagnoses Diagnosis Mass Kidney documented in this encounter Administered Medications Inactive Administered Medications - up to 3 most recent administrations Medication Order MAR Action Action Date Dose Rate Site iohexoL 300 mg iodine/mL solution Given 05/02/2021 11:38 AM LEGAL SUPPORT MANAGER 140 mL 1-200 mL (OMNIPAQUE) 1-200 mL, intravenous, Once in imaging, contrast, Starting on Fri05/02/21 at 1114, For 1 dose, Imaging Protocol Orders, Dose per Radiant Medication Guidelines sodium chloride (PF) 0.9 % injection 1-1 00 mL Given 05/02/2021 11:38 AM LEGAL SUPPORT MANAGER 50 mL 1-100 mL, intravenous, Once, On Fri05/02/21 at 1115, For 1 dose, Imaging Protocol Orders documented in this encounter Additional Health Concerns Assessment Noted Time PHQ-9 Depression Total Score: 11 05/04/2013 4:05 PM CS T documented as of this encounter Care Teams Tissue Specialist Relationship Specialty Start Date End Date Elsewhere, Pcp PCP - General Internal Medicine 07/27/18 documented as of this encounter
--- OUTSIDE RECORDS SUMMARY | 2022-01-03 10:58 | XMS_ITS | Encounter Summary ---
:1955 Author Organization [facility] Address [address] [place] [address] Care Team Providers Name Role Phone Elsewhere, Pcp Primary Care Provider Unavailable Encounter Details Date Type Department Care Team Description 04/07/2020 Hospital Encounter [facility] [address] [phone] Social History Tobacco Use Types Packs/Day [...] do you attend jainism or Never 2018 uatsdin services? Do you [...] COVID19 Pending 04/07/2020 04/07/2020 04/07/2020 7:59 PM ONLINE COMMUNICATIONS SPECIALIST Assessment Noted Time PHQ-9 Depression Total Score: 11 05/04/2013 4:05 PM CS T documented as of this encounter Care Teams Street Light Servicer Supervisor Relationship Specialty Start Date End Date Elsewhere, Pcp PCP - General Internal Medicine 07/27/18 documented as of this encounter
--- OUTSIDE RECORDS SUMMARY | 2022-01-03 10:58 | XMS_ITS | Encounter Summary ---
:1955 Author Organization [facility] Address [address] [place] [address] Care Team Providers Name Role Phone Elsewhere, Pcp Primary Care Provider Unavailable Encounter Details Date Type Department Care Team Description 02/06/2021 Clinical Communication Department of Urology Stacy Mathias in [place], M.D. [place] [address] [place] [address] Social History Tobacco Use Types Packs/Day Years [...] do you attend latter-day or Never 2018 yarsani services? Do you [...] diary prior to a visit, thank you! NDARY SCHOOL REGISTRAR Telephone Encounter - Valreie Stallworth - 02/06/2021 12:20 PM CST ~ Place needed orders Patient has referral for Polyuria, pt has orders for follow up visit and CT abdomen. Advise on additional testing needed for follow up with new indication. Thank you, NDARY SCHOOL REGISTRAR documented in this encounter Plan of Treatment Not on filedocumented as of this encounter Visit Diagnoses Not on filedocumented in this encounter Additional Health Concerns Assessment Noted Time PHQ-9 Depression Total Score: 05/04/2013 4:05 PM CS T documented as of this encounter Care Teams Slasher Runner Relationship Specialty Start Date End Date Elsewhere, Pcp PCP - General Internal Medicine 07/27/18 documented as of this encounter
--- OUTSIDE RECORDS SUMMARY | 2022-01-03 10:58 | XMS_ITS | Encounter Summary ---
:[address] [facility] Address [address] [place] [address] Care Team Providers Name Role Phone Elsewhere, Pcp Primary Care Provider Unavailable Reason for Visit Outpatient (Routine) - Closed Specialty Diagnoses / Procedures Referred By Contact Refer red To Contact Diagnoses Other Polyuria Kristen Watts M.D. [facility] Procedures URO Uroflow 200 [place] [address] Referral ID Status Reason Start Date Expiration Date Visits Requ ested Visits Authorized [id number] Closed 02/06/2021 02/06/2022 1 1 Encounter Details Date Type Department Care Team Description 05/03/2021 Procedure visit Department of Kristen Watts M.D. Other Polyuria; Urology in [place], L.P.N. Feeling Of Incomplete Bladder Emptying; [place], [place] Eusebio Tran M.D. [address] [place] [phone] Frequency Urinary [address] [place] [phone] Social History Tobacco Use Types Packs/Day Years [...] do you attend sabianism or Never 2018 oriental orthodox services? Do [...] 0 to 10 pain scale post procedure. CING LATHE OPERATOR documented in this encounter Procedure Notes Eusebio [...] Low voided volume with low postvoid residual. CING LATHE OPERATOR documented in this encounter Plan of Treatment Not on filedocumented as of this encounter Procedures Procedure Name Priority Date/Time Associated Diagnosis Comme nts URO UROFLOW Routine 05/03/2021 10:45 AM Other Polyuria Result s for this POUNCING LATHE OPERATOR procedure are i n the results section . documented in this encounter Results URO Uroflow (05/03/2021 10:45 AM POUNCING LATHE OPERATOR) Narrative Eusebio Tran M.D. - 05/03/2021 10: 45 AM POUNCING LATHE OPERATOR Eusebio Tran M.D. ? 05/07/2021 ??9:36 [...] documented as of this encounter Care Teams Panel Flow Machine Operator Relationship Specialty Start Date End Date Elsewhere, Pcp PCP - General Internal Medicine 07/27/18 documented as of this encounter
--- OUTSIDE RECORDS SUMMARY | 2022-01-03 10:58 | XMS_ITS | Encounter Summary ---
:1955 Author Organization [facility] Address [address] [place] [address] Care Team Providers Name Role Phone Elsewhere, Pcp Primary Care Provider Unavailable Reason for Referral MRI/CAT/PET Scan (Routine) - Closed Specialty Diagnoses / Procedures Referred By Contact Refer red To Contact Radiology Diagnoses Mass Kidney Ally Bar M.D. [facility] Procedures CT Chest without IV Contrast [address] [place] [address] Referral ID Status Reason Start Date Expiration Date Visits Requ ested Visits Authorized [id number] Closed 05/03/2021 05/03/2022 1 1 X EDITOR Outpatient (Routine) - Closed Specialty Diagnoses / Procedures Referred By Contact Refer red To Contact Radiology Diagnoses Mass Kidney Ally Bar M.D. [facility] [address] [place] [address] Referral ID Status Reason Start Date Expiration Date Visits Requ ested Visits Authorized [id number] Closed 05/03/2021 05/03/2022 1 1 X EDITOR Encounter Details Date Type Department Care Team Description 05/03/2021 Orders Only Department of Urology Ally Bar Ma ss Kidney (Primary in [place], [place] Dx) [place] [address] [facility] [place], [place] [phone] Social History Tobacco Use Types Packs/Day Years [...] or relatives? How often do you attend buddhism or Never 2018 evangelical services? Do you belong to any clubs or No 02/26/2019 organizations such as buddhism groups, unions, fraternal or athletic groups, or [...] Chest without IV Contrast (05/03/2021 1:35 PM INDEX EDITOR) Anatomical Region Laterality Modality Chest, Thoracic RST LOS, Thoracic ARZ N/A Co mputed Tomography, Computed LOS, Thoracic FLA LOS Tomography Specimen (Source) Anatomical Collection Method Collection Time Re ceived Time Location / / Volume Laterality 05/03/2021 1:42 PM INDEX EDITOR Impressions 05/03/2021 1:53 PM INDEX EDITOR 1. Increased clustered nodularity with new dominant 11 x 7 mm nodule in the posterior basal left lower lobe, indeter minate but likely infectious/inflammatory rather than neop lastic. CT follow-up suggested in 3 months. 2. Stable 5 x 4 mm left upper lobe nodul e which has decreased since 08/18/2019. 3. Scattered additional tiny nodules are stable since 03/30/2020. Narrative 05/03/2021 1:53 PM INDEX EDITOR EXAM: CT CHEST WITHOUT IV CONTRAST COMPARISON: [facility] CT chest 01/07/2 021. FINDINGS: The 5 [...] EXAM: CT CHEST WITHOUT IV CONTRAST COMPARISON: [facility] CT chest . FINDINGS: The 5 x [...] documented as of this encounter Care Teams Rotary Derrick Operator Relationship Specialty Start Date End Date Elsewhere, Pcp PCP - General Internal Medicine 07/27/18 documented as of this encounter
--- OUTSIDE RECORDS SUMMARY | 2022-01-03 10:58 | XMS_ITS | Encounter Summary ---
:1955 Author Organization [facility] Address [address] [place] [address] Care Team Providers Name Role Phone Elsewhere, Pcp Primary Care Provider Unavailable Reason for Visit Outpatient (Routine) - Closed Specialty Diagnoses / Procedures Referred By Contact Refer red To Contact Urology Brian Mathias M.D . [address] [address] Referral ID Status Reason Start Date Expiration Date Visits Requ ested Visits Authorized [id number] Closed 05/04/2020 05/04/2021 1 1 Encounter Details Date Type Department Care Team Description 05/03/2021 Office Visit Department of Urology Ally Bar Ma ss Kidney (Primary in [place], [place] Dx) [place] [address] [place] [phone] Social History Tobacco Use Types Packs/Day Years [...] do you attend taoist or Never 2018 lutheran services? Do you belong to any clubs or No 02/26/2019 organizations such as taoist groups, unions, dianboom or athletic groups, or school groups? How [...] by: Sheryl Bar M.D. 05/03/2021 11:48 AM WARRANT CLERK ANT CLERK documented in this encounter Plan of Treatment Not on filedocumented as of this encounter Visit Diagnoses Diagnosis Mass Kidney - Primary documented in this encounter Additional Health Concerns Assessment Noted Time PHQ-9 Depression Total Score: 11 05/04/2013 4:05 PM CS T documented as of this encounter Care Teams Thiokol Operator Relationship Specialty Start Date End Date Elsewhere, Pcp PCP - General Internal Medicine 07/27/18 documented as of this encounter
--- OUTSIDE RECORDS SUMMARY | 2022-01-03 10:58 | XMS_ITS | Encounter Summary ---
:1955 Author Organization [facility] Address [address] [place] [address] Care Team Providers Name Role Phone Elsewhere, Pcp Primary Care Provider Unavailable Reason for Visit Reason Comments Pre-Ablation Encounter Details Date Type Department Care Team Description 05/03/2021 Clinical Communication Department of So Ca e-Ablation Radiology, Homar Leon R.N. [place], in [phone] [place], [place] (Work) [address] [place] [phone] Social History Tobacco Use Types Packs/Day [...] do you attend cheondoism or Never 2018 catholic services? Do you [...] ablation: Yes Reviewed by: Alen Gan M.D. MAN APPRENTICE documented in this encounter Plan of Treatment Not on filedocumented as of this encounter Visit Diagnoses Not on filedocumented in this encounter Additional Health Concerns Assessment Noted Time PHQ-9 Depression Total Score: 11 05/04/2013 4:05 PM CS T documented as of this encounter Care Teams Finish Machine Tender Relationship Specialty Start Date End Date Elsewhere, Pcp PCP - General Internal Medicine 07/27/18 documented as of this encounter
--- OUTSIDE RECORDS SUMMARY | 2022-01-03 10:58 | XMS_ITS | Encounter Summary ---
:1955 Author Organization [facility] Address [address] [place] [address] Care Team Providers Name Role Phone Elsewhere, Pcp Primary Care Provider Unavailable Reason for Referral Outpatient (Routine) - Authorized Specialty Diagnoses / Procedures Referred By Contact Refer red To Contact Diagnoses Flutter Atrial (HCC) Atrial Fibrillation [facility]oxysmal [facility]HCC) [facility] Heart Rhythm Monitor (Holter) M.DEdilma [address] [place] [address] Referral ID Status Reason Start Date Expiration Date Visits V isits Requested Authorized [id number] Authorized 01/30/2021 01/30/2022 1 1 RITY SUPPORT ANALYST Reason for Visit Outpatient (Routine) - Authorized Specialty Diagnoses / Procedures Referred By Contact Refer red To Contact Diagnoses Flutter Atrial (HCC) Atrial Fibrillation Paroxysmal (HCC) [facility] Procedures ECG Heart Rhythm Monitor (Holter) M.DEdilma [address] [place] [address] Referral ID Status Reason Start Date Expiration Date Visits V isits Requested Authorized [id number] Authorized 01/30/2021 01/30/2022 1 1 Encounter Details Date Type Department Care Team Description 02/27/2021 Hospital Encounter Department of Siontis, Flutter Atrial (HCC); Cardiovascular Diseases Pacheco Monroy ial Fibrillation Paroxysmal (HCC) in [facility] nasim Kellogg [address] [facility] [place] [phone] Social History Tobacco Use Types Packs/Day Years [...] or relatives? How often do you attend sikhism or Never 2018 sikh services? Do you belong to any clubs or No 02/26/2019 organizations such as sikhism groups, unions, fraternal or athletic groups, or [...] Routine 03/01/2021 9:47 PM Flutter A trial ([facility]) Results for this CLINIC PLATEN DRIER OPERATOR SECURITY SUPPORT ANALYST Atrial Fibrillation proced ure are in Paroxysmal ([facility]) the results section. documented in this encounter Results HOLTER MONITOR - IN CLINIC PLATEN DRIER OPERATOR (03/01/2021 9:47 PM SECURITY SUPPORT ANALYST) [facility] gist Method Time Signature Min Heart [...] AF Duration 0 duration INFOBIONIC MOME AF [place] 0 percent INFOBIONIC MOME Symptom Count 1 count INFOBIONIC MOME Specimen (Source) Anatomical Collection Method Collection Time Re ceived Time Location / / Volume Laterality 02/27/2021 1:24 PM SECURITY SUPPORT ANALYST Narrative INFOBIONIC MOME - 03/04/2021 10:59 AM [...] No ectopy was seen around this time. Quad Stayer: Jair Little/Solange Momin Procedure Note Peyman Cole [...] No ectopy was seen around this time. Quad Stayer: Jair Little/Solange Momin Porfirio Villegas M.D. CV [...] documented as of this encounter Care Teams Head Of Cytogenetics Relationship Specialty Start Date End Date Elsewhere, Pcp PCP - General Internal Medicine 07/27/18 documented as of this encounter
--- OUTSIDE RECORDS SUMMARY | 2022-01-03 10:58 | XMS_ITS | Encounter Summary ---
:1955 Author Organization [facility] Address [address] [place] [phone] Care Team Providers Name Role Phone Elsewhere, Pcp Primary Care Provider Unavailable Reason for Referral MRI/CAT/PET Scan (Routine) - Closed Specialty Diagnoses / Procedures Referred By Contact Refer red To Contact Radiology Diagnoses Mass Kidney Kristen Watts M.D. [facility] Procedures CT Abdomen Pelvis with IV Contrast CT Abdomen Pelvis without and with IV Contrast 200 [place] [address] Referral ID Status Reason Start Date Expiration Date Visits Requ ested Visits Authorized [id number] Closed 02/06/2021 02/06/2022 1 1 utpatient (Routine) - Closed Specialty Diagnoses / Procedures Referred By Contact Refer red To Contact Diagnoses Other Polyuria Kristen Watts M.D. [facility] Procedures URO Uroflow 200 [place] [address] Referral ID Status Reason Start Date Expiration Date Visits Requ ested Visits Authorized [id number] Closed 02/06/2021 02/06/2022 1 1 DRIER Encounter Details Date Type Department Care Team Description 02/06/2021 Orders Only Department of Urology Kristen Watts Mass Kidney (Primary Dx); [place] Other Polyuria; [address] [place] [address] Diabetes Mellitus Type 2 (HC C) [place] [address] Social History Tobacco Use Types Packs/Day Years [...] do you attend samaritan or Never 2018 anabaptism services? Do you [...] encounter Results URO Uroflow (05/03/2021 10:45 AM DRUM DRIER) Narrative Eusebio Tran M.D. - 05/03/2021 10: 45 AM DRUM DRIER Eusebio Tran M.D. ? 05/07/2021 ??9:36 AM [...] Pelvis with IV Contrast (05/02/2021 11:48 AM DRUM DRIER) Anatomical Region Laterality Modality Abdomen, Pelvis, Abdominal RST LOS, N/A Comp uted Tomography, Computed Abdominal ARZ LOS, Abdominal FLA LOS Godwin ography Specimen (Source) Anatomical Collection Method Collection Time Re ceived Time Location / / Volume Laterality 05/02/2021 11:49 AM DRUM DRIER Impressions 05/02/2021 1:00 PM DRUM DRIER 1. Slight interval enlargement of the 1.6 cm left renal mass likely representing a primary renal neoplasm. 2. No evidence of metastatic disease in the abdomen or pelvis. Narrative 05/02/2021 1:00 PM DRUM DRIER EXAM: ??CT ABDOMEN PELVIS WITH IV CONTRAST [...] with Microscopic: Urine, Midstream (05/02/2021 10:17 AM DRUM DRIER) Patholo gist Method Time Signature Source Urine, Urine, 05/02/2021 DTL Midstream 11:04 AM DRUM DRIER Color, U Yellow 05/02/2021 DTL 11:05 AM DRUM DRIER Clarity, U Cloudy (A) 05/02/2021 DTL 11:05 AM DRUM DRIER Protein, U 24 <26 mg/dL 05/02/2021 DTL 12:15 PM DRUM DRIER Protein/Osmol 0.46 (H) <0.42 05/02/2021 DTL ality ratio 12:15 PM DRUM DRIER Predicted 24 332 mg/24 h 05/02/2021 DTL Hr Protein 12:15 PM DRUM DRIER Predicted 82-1344 mg/24 h 05/02/2021 DTL Range 12:15 PM DRUM DRIER Specimen Anatomical Collection Method Collection Time Receive d Time (Source) Location / / Volume Laterality Urine (Urine, 05/02/2021 10:17 05/02/2021 Midstream) AM DRUM DRIER 11:04 AM DRUM DRIER Kristen Watts M.D. LAB URINE ORDERABLES Performing Organization Address City/[facility] Phon e Number [facility] - [address] (ABNORMAL) Hemoglobin A1c (05/02/2021 10:07 AM DRUM DRIER) P athologist Signature Hemoglobin A1c, 6.7 (H) 4.0 - 5.6 05/02/2021 DTL B % 10:48 AM DRUM DRIER Comment: Hemoglobin A1c values greater than or eq ual to 6.5 percent are diagnostic for diabetes mellitus. ?? Diagnosis should be confirmed by repeat testing. ??In diabet ic patients, HbA1c goals should be discussed with healthcar e provider. Specimen Anatomical Collection Method Collection Time Receive d Time (Source) Location / / Volume Laterality Blood (Blood, 05/02/2021 10:07 05/02/2021 Venous) AM DRUM DRIER 10:27 AM DRUM DRIER Kristen Watts M.D. LAB BLOOD ADD-ON Performing Organization Address City/[facility]/ZIP [facility] Phon e Number [facility] - [address] [place] [address] Basic Metabolic Panel (05/02/2021 10:07 AM DRUM DRIER) P athologist Signature Potassium, S 4.1 3.6 - 5.2 05/02/2021 DTL mmol/L 11:21 AM DRUM DRIER Sodium, S 141 135 - 145 05/02/2021 DTL mmol/L 11:21 AM DRUM DRIER Chloride, S 103 98 - 107 05/02/2021 DTL mmol/L 11:21 AM DRUM DRIER Bicarbonate, S 26 22 - 29 05/02/2021 DTL mmol/L 11:21 AM DRUM DRIER Anion Gap 12 7 - 15 05/02/2021 DTL 11:21 AM DRUM DRIER BUN (Blood Urea 12 6 - 21 05/02/2021 DTL Nitrogen), S mg/dL 11:21 AM DRUM DRIER Creatinine 0.92 0.59 - 05/02/2021 DTL 1.04 mg/dL 11:21 AM DRUM DRIER eGFR-Non 66 >=60 05/02/2021 DTL Black/ mL/min/BSA 11:21 AM DRUM DRIER [place] Comment: ----ADDITIONAL INFORMATION---- Estimated GFR calculated using the 2009 CKD_EPI creatinine equation. eGFR-Black/ 76 >=60 mL/min/BSA 2021 11:21 AM DRUM DRIER DTL Comment: ----ADDITIONAL INFORMATION---- Estimated GFR calculated using the 2009 CKD_EPI creatinine equation. Calcium, Total, S 9.3 8.8 - 10.2 mg/dL 05/02/2021 11:2 1 AM DRUM DRIER DTL Glucose, S 128 70 - 140 mg/dL 05/02/2021 11:21 AM DRUM DRIER DTL Specimen Anatomical Collection Method Collection Time Receive d Time (Source) Location / / Volume Laterality Blood (Blood, 05/02/2021 10:07 05/02/2021 Venous) AM DRUM DRIER 10:54 AM DRUM DRIER Kristen Watts M.D. LAB BLOOD ADD-ON Performing Organization Address City/State/ZIP Code Phon e Number [facility] - [address] [place] [address] [facility] [place] [address] [facility] [address] documented in this encounter Visit Diagnoses Diagnosis Mass Kidney - Primary Other Polyuria Diabetes Mellitus Type 2 (HCC) Mass Kidney Other Polyuria Feeling Of Incomplete Bladder Emptying Frequency Urinary documented in this encounter Additional Health Concerns Assessment Noted Time PHQ-9 Depression Total Score: 11 05/04/2013 4:05 PM CS T documented as of this encounter Care Teams Loss Prevention/Safety District Manager Relationship Specialty Start Date End Date Elsewhere, Pcp PCP - General Internal Medicine 07/27/18 documented as of this encounter
--- OUTSIDE RECORDS SUMMARY | 2022-01-03 10:58 | XMS_ITS | Encounter Summary ---
:1955 Author Organization [facility] Address [address] [place] [address] Care Team Providers Name Role Phone Elsewhere, Pcp Primary Care Provider Unavailable Reason for Referral MRI/CAT/PET Scan (Routine) - Closed Specialty Diagnoses / Procedures Referred By Contact Refer red To Contact Radiology Diagnoses Kidney And Ureter Disorder Brian Mathias M.D. [facility] Procedures CT Abdomen with IV Contrast CT Abdomen without and with IV Contrast 200 [place] [address] Referral ID Status Reason Start Date Expiration Date Visits Requ ested Visits Authorized [id number] Closed 04/11/2020 04/11/2021 1 1 ATION / CHEMISTRY TECHNICIAN Reason for Visit MRI/CAT/PET Scan (Routine) - Closed Specialty Diagnoses / Procedures Referred By Contact Refer red To Contact Radiology Diagnoses Kidney And Ureter Disorder Brian Mathias M.D. [facility] Procedures CT Abdomen with IV Contrast CT Abdomen without and with IV Contrast 200 [place] [address] Referral ID Status Reason Start Date Expiration Date Visits Requ ested Visits Authorized [id number] Closed 04/11/2020 04/11/2021 1 1 Encounter Details Date Type Department Care Team Description 04/24/2020 Hospital Encounter Department of Brian Mathias Kidney And Ureter Radiology, Prakash Miranda M.D. [facility], in [place], [place] [address] [place] [address] Social History Tobacco Use Types Packs/Day Years [...] do you attend mosque or Never 2018 jainism services? Do you [...] for this IV CONTRAST (most inpatients PM RADIATION / CHEMISTRY TECHNICIAN Disorder procedure a re in and all the results outpatients) section. documented in this encounter Results CT Abdomen with IV Contrast (04/24/2020 1:25 PM RADIATION / CHEMISTRY TECHNICIAN) Anatomical Region Laterality Modality Abdomen, Abdominal RST LOS, Abdominal N/A Co mputed Tomography, Computed ARZ LOS, Abdominal FLA LOS Tomography Specimen (Source) Anatomical Collection Method Collection Time Re ceived Time Location / / Volume Laterality 04/24/2020 2:21 PM RADIATION / CHEMISTRY TECHNICIAN Impressions 04/24/2020 2:47 PM RADIATION / CHEMISTRY TECHNICIAN 1. No change since 11/30/2019 indeterminate 1.4 cm left renal mass likely representing primary renal neoplasm. 2. Small hiatal hernia. 3. Probable osteoporosis. Narrative 04/24/2020 2:47 PM RADIATION / CHEMISTRY TECHNICIAN EXAM: ??CT ABDOMEN WITH IV CONTRAST COMPARISON: [...] mg iodine/mL solution Given 04/24/2020 1:16 PM RADIATION / CHEMISTRY TECHNICIAN 1 40 mL 1-200 mL (OMNIPAQUE) 1-200 mL, intravenous, Once in imaging, contrast, Starting on Fri04/24/20 at 1238, For 1 dose, Imaging Protocol Orders, Dose per Radiant Medication Guidelines sodium chloride (PF) 0.9 % injection 1-1 00 mL Given 04/24/2020 1:16 PM RADIATION / CHEMISTRY TECHNICIAN 50 mL 1-100 mL, intravenous, Once, On Fri04/24/20 at 1245, For 1 dose, Imaging Protocol Orders documented in this encounter Additional Health Concerns Assessment Noted Time PHQ-9 Depression Total Score: 11 05/04/2013 4:05 PM CS T documented as of this encounter Care Teams Signing Agent Relationship Specialty Start Date End Date Elsewhere, Pcp PCP - General Internal Medicine 07/27/18 documented as of this encounter
--- OUTSIDE RECORDS SUMMARY | 2022-01-03 10:58 | XMS_ITS | Encounter Summary ---
:1955 Author Organization [facility] Address [address] [place] [address] Care Team Providers Name Role Phone Elsewhere, Pcp Primary Care Provider Unavailable Reason for Referral Outpatient (Routine) - Authorized Specialty Diagnoses / Procedures Referred By Contact Refer red To Contact Diagnoses Flutter Atrial (HCC) Atrial Fibrillation Paroxysmal (HCC) [facility] Heart Rhythm Monitor (Holter) Bess [address] [place] [address] Referral ID Status Reason Start Date Expiration Date Visits V isits Requested Authorized [id number] Authorized 01/30/2021 01/30/2022 1 1 EKEEPING ROOM ATTENDANT Encounter Details Date Type Department Care Team Description 01/30/2021 Orders Only Department of Hardware Engineer, Flutter Atria l (HCC) (Primary Dx); Cardiovascular Medicine Bess Randall Atri al Fibrillation Paroxysmal (HCC) in [facility] rotary dump operator [address] [place] [address] Social History Tobacco Use [...] do you attend worship or Never 2018 sikhism services? Do you belong to any clubs or No 02/26/2019 organizations such as worship groups, unions, [employer] or athletic groups, or school groups? How [...] encounter Results HOLTER MONITOR - IN CLINIC RESOURCE ECONOMIST (03/01/2021 9:47 PM HOUSEKEEPING ROOM ATTENDANT) [facility] gist Method Time Signature Min Heart [...] AF Duration 0 duration INFOBIONIC MOME AF [place] 0 percent INFOBIONIC MOME Symptom Count 1 count INFOBIONIC MOME Specimen (Source) Anatomical Collection Method Collection Time Re ceived Time Location / / Volume Laterality 02/27/2021 1:24 PM HOUSEKEEPING ROOM ATTENDANT Narrative INFOBIONIC MOME - 03/04/2021 10:59 AM [...] No ectopy was seen around this time. Competitive Shopper: Jair Little/Solange Momin Procedure Note Peyman Cole [...] No ectopy was seen around this time. Competitive Shopper: Jair Little/Solange Momin Porfirio Villegas M.D. CV [...] documented as of this encounter Care Teams Coronary Clinical Specialist Relationship Specialty Start Date End Date Elsewhere, Pcp PCP - General Internal Medicine 07/27/18 documented as of this encounter
--- OUTSIDE RECORDS SUMMARY | 2022-01-03 10:59 | XMS_ITS | Encounter Summary ---
:1955 Author Organization [facility] Address [address] [place] [address] Care Team Providers Name Role Phone Elsewhere, Pcp Primary Care Provider Unavailable Encounter Details Date Type Department Care Team Description 01/04/2020 Hospital Encounter Department of Zac Gonzalez Renal Cell Radiology, [place] Bess Perez [facility], in [place], [place] [address] [place] [address] Social History Tobacco Use Types Packs/Day Years [...] or relatives? How often do you attend gnosticism or Never 2018 baptism services? Do you belong to any clubs or No 02/26/2019 organizations such as gnosticism groups, unions, fraternal or athletic groups, or [...] documented as of this encounter Care Teams Equipment Monitor Phototypesetting Relationship Specialty Start Date End Date Elsewhere, Pcp PCP - General Internal Medicine 07/27/18 documented as of this encounter
--- OUTSIDE RECORDS SUMMARY | 2022-01-03 10:59 | XMS_ITS | Encounter Summary ---
:1955 Author Organization [facility] Address [address] [place] [address] Care Team Providers Name Role Phone Elsewhere, Pcp Primary Care Provider Unavailable Reason for Referral MRI/CAT/PET Scan (Routine) - Closed Specialty Diagnoses / Procedures Referred By Contact Refer red To Contact Radiology Diagnoses Nodule Pulmonary Harish Harkins M.D. [facility] Procedures CT Chest without IV Contrast [address] [place] [phone] Referral ID Status Reason Start Date Expiration Date Visits Requ ested Visits Authorized [id number] Closed 03/20/2020 03/20/2021 1 1 R VEHICLE FIELD REPRESENTATIVE Reason for Visit MRI/CAT/PET Scan (Routine) - Closed Specialty Diagnoses / Procedures Referred By Contact Refer steven To Contact Radiology Diagnoses Nodule Pulmonary Harish Harkins M.D. [facility] Procedures CT Chest without IV Contrast [address] [place] [phone] Referral ID Status Reason Start Date Expiration Date Visits Requ ested Visits Authorized [id number] Closed 03/20/2020 03/20/2021 1 1 Encounter Details Date Type Department Care Team Description 03/30/2020 Hospital Encounter Department of Harish Harkins Nodu le Pulmonary Radiology, Gonda M.D. Building, in [address] [place] [address] [place] [phone] [place], [place] [phone] (Work) [phone] Social History Tobacco Use Types Packs/Day Years [...] do you attend judaism or Never 2018 cheondoism services? Do you belong to any clubs [...] for this IV CONTRAST (most inpatients AM MOTOR VEHICLE FIELD REPRESENTATIVE procedure a re in and all the results outpatients) section. documented in this encounter Results CT Chest without IV Contrast (03/30/2020 10:26 AM MOTOR VEHICLE FIELD REPRESENTATIVE) Anatomical Region Laterality Modality Chest, Thoracic RST LOS, Thoracic ARZ N/A Co mputed Tomography, Computed LOS, Thoracic FLA LOS Tomography Specimen (Source) Anatomical Collection Method Collection Time Re ceived Time Location / / Volume Laterality 03/30/2020 10:59 AM MOTOR VEHICLE FIELD REPRESENTATIVE Impressions 03/30/2020 12:08 PM MOTOR VEHICLE FIELD REPRESENTATIVE 1. Decrease in size of the left [...] recommendations are attached. Narrative 03/30/2020 12:08 PM MOTOR VEHICLE FIELD REPRESENTATIVE EXAM: CT CHEST WITHOUT IV CONTRAST COMPARISON: [...] documented as of this encounter Care Teams Surveyor Oil Well Directional Relationship Specialty Start Date End Date Elsewhere, Pcp PCP - General Internal Medicine 07/27/18 documented as of this encounter
--- OUTSIDE RECORDS SUMMARY | 2022-01-03 10:59 | XMS_ITS | Encounter Summary ---
:1955 Author Organization [facility] Address [address] [place] [address] Care Team Providers Name Role Phone Elsewhere, Pcp Primary Care Provider Unavailable Encounter Details Date Type Department Care Team Description 01/13/2020 Clinical Communication Department of Urology Zac Gonzalez in [place] Velasco M.[address] [phone] Social History Tobacco Use Types Packs/Day Years [...] do you attend samaritan or Never 2018 bahai services? Do you [...] they will be pushing Iris's MRI into [facility] system today. documented in this encounter Plan of Treatment Not on filedocumented as of this encounter Visit Diagnoses Not on filedocumented in this encounter Additional Health Concerns Assessment Noted Time PHQ-9 Depression Total Score: 11 05/04/2013 4:05 PM CS T documented as of this encounter Care Teams Director Of Aviation Relationship Specialty Start Date End Date Elsewhere, Pcp PCP - General Internal Medicine 07/27/18 documented as of this encounter
--- OUTSIDE RECORDS SUMMARY | 2022-01-03 10:59 | XMS_ITS | Encounter Summary ---
:1955 Author Organization [facility] Address [address] [place] [address] Care Team Providers Name Role Phone Elsewhere, Pcp Primary Care Provider Unavailable Reason for Visit Reason Comments NERIS Nurse Line Encounter Details Date Type Department Care Team Description 03/20/2020 Clinical Communication Division of NERIS Harkins Nurse Bianca Pulmonary Medicine Bess Moreira in [place], [address] [place] [address] [place] [address] [place], [place] [phone] (Work) [phone] Social History Tobacco Use Types Packs/Day Years [...] do you attend congregational or Never 2018 temple services? Do you belong to any clubs [...] - 03/20/2020 4:16 PM CST ([place] and [place] [facility] locations only: If the patient is not having symptoms and is requesting COVID-19 Nasal Swab testing only, use the process listed in the COVID-19 Patient Requesting COVID PCR Test OTG COVID-19 [place] Patient Requesting COVID PCR Test). In the past 20 days have you had a swab for COVID that tested positive? no Route reply to: justynt pul appt office/vl Scheduling Contact Number: [phone] ING PROPERTY MANAGER documented in this encounter Plan of Treatment Not on filedocumented as of this encounter Visit Diagnoses Not on filedocumented in this encounter Additional Health Concerns Assessment Noted Time PHQ-9 Depression Total Score: 11 05/04/2013 4:05 PM CS T documented as of this encounter Care Teams Chute Operator Relationship Specialty Start Date End Date Elsewhere, Pcp PCP - General Internal Medicine 07/27/18 documented as of this encounter
--- OUTSIDE RECORDS SUMMARY | 2022-01-03 10:59 | XMS_ITS | Encounter Summary ---
:1955 Author Organization [facility] Address [address] [place] [address] Care Team Providers Name Role Phone Elsewhere, Pcp Primary Care Provider Unavailable Encounter Details Date Type Department Care Team Description 01/04/2020 Hospital Encounter Department of Zac Gonzalez Renal Cell Laboratory Medicine CBess Left (HC C) and Pathology, [facility] in [place], [place] [address] [place] [address] Social History Tobacco Use Types Packs/Day Years [...] do you attend sabianism or Never 2018 adventism services? Do you [...] Organization Address City/State/ZIP Code Phon e Number [facility] - [address] [place] [phone] [facility] [place] [address] Laboratories-[facility] 200 [facility] (ABNORMAL) Urinalysis with Microscopic: Urine, Midstream (01/04/2020 12:26 PM CDT) [facility] gist Method Time Signature Source Midstream 01/04/2020 [place] 12:26 PM CDT Appearance Normal Normal 01/04/2020 [place] 1:38 PM CDT Osmolality, U 483 150 - 1150 01/04/2020 [place] mOsm/kg 1:24 PM CDT pH, U 5.4 4.5 - 8.0 01/04/2020 [place] 1:24 PM CDT Comment: ----ADDITIONAL INFORMATION---- This test was developed and its performa nce characteristics determined by [facility] in a manner co nsistent with CLIA [...] Organization Address City/State/ZIP Code Phon e Number [facility] - [address] [place], [place] [address] [facility] [place] [address] Laboratories-[facility] [address] documented in this encounter Visit Diagnoses Diagnosis Carcinoma Renal Cell Left (HCC) documented in this encounter Additional Health Concerns Assessment Noted Time PHQ-9 Depression Total Score: 11 05/04/2013 4:05 PM CS T documented as of this encounter Care Teams Hadoop Infrastructure Architect Relationship Specialty Start Date End Date Elsewhere, Pcp PCP - General Internal Medicine 07/27/18 documented as of this encounter
--- OUTSIDE RECORDS SUMMARY | 2022-01-03 10:59 | XMS_ITS | Encounter Summary ---
:1955 Author Organization [facility] Address [address] [place] [address] Care Team Providers Name Role Phone Elsewhere, Pcp Primary Care Provider Unavailable Encounter Details Date Type Department Care Team Description 03/30/2020 Hospital Encounter Department of Laboratory Geeta Rodriguez [facility] Kidney Medicine and Pathology, [place], [place], [place] [address] [place] [address] Social History Tobacco Use Types Packs/Day [...] or relatives? How often do you attend druze or Never 2018 protestant services? Do you belong to any clubs or No 02/26/2019 organizations such as druze groups, unions, fraternal or athletic groups, or [...] Kidney Results for this DIFFERENTIAL, B PM [employer] CH[employer]ER [employer] procedure ar e in the results section. ALANINE AMINOTRANSFERASE Routine 03/30/2020 3:11 Mass Kidney Results for this (ALT), S/P PM [employer] procedure are i n the results section. ASPARTATE Routine 03/30/2020 3:11 Mass Kidney Results for this AMINOTRANSFERASE (AST), PM [employer] proc edure are in S/P the results section. ALKALINE PHOSPHATASE, Routine 03/30/2020 3:11 Mass Kidney Res ults for this S/P PM [employer] procedure are i n the results section. BASIC METABOLIC PANEL, Routine 03/30/2020 3:11 Mass Kidney Re sults for this S/P PM [employer] procedure are i n the results section. documented in this encounter Results (ABNORMAL) CBC without Differential (03/30/2020 3:11 PM TI[employer]) [employer] Method Time Signature Hemoglobin 13.9 11.6 - 03/30/2020 DTL 15.0 g/dL 3:44 PM [employer] Hematocrit 42.8 35.5 - 03/30/2020 DTL 44.9 % 3:44 PM [employer] Erythrocytes 4.58 3.92 - 03/30/2020 DTL 5.13 3:44 PM [employer] x10(12)/L MCV 93.4 78.2 - 03/30/2020 DTL 97.9 fL 3:44 PM [employer] RBC Distrib Width 12.5 12.2 - 03/30/2020 DTL 16.1 % 3:44 PM [employer] Platelet Count 481 (H) 157 - 371 03/30/2020 DTL x10(9)/L 3:44 PM [employer] Leukocytes 10.9 (H) 3.4 - 9.6 03/30/2020 DTL x10(9)/L 3:44 PM [employer] Specimen Anatomical Collection Method Collection Time Receive d Time (Source) Location / / Volume Laterality Blood (Blood, 03/30/2020 3:11 PM 03/30/19 3:34 Venous) [employer] PM [employer] Geeta Ware M.D. LAB BLOOD ADD-ON Performing Organization Address City/State/ZIP Code Phon e Number [facility] - [address] [place], [place] [address] [facility] [place] [address] [facility] [address] ALT (Alanine Aminotransferase) (03/30/2020 3:11 PM [employer]) [employer] Method Time Signature Alanine 27 7 - 45 03/30/2020 DTL Aminotransferase U/L 5:05 PM [employer] (ALT), S Specimen Anatomical Collection Method Collection Time Receive d Time (Source) Location / / Volume Laterality Blood (Blood, 03/30/2020 3:11 PM 03/30/19 3:34 Venous) [employer] PM [employer] Geeta Ware M.D. LAB BLOOD ADD-ON Performing Organization Address City/[facility] Phon e Number [facility] - [address] [place], [place] [address] [place] [address] AST (Aspartate Aminotransferase) (03/30/2020 3:11 PM [employer]) Patholo gist Method Time Signature Aspartate 22 8 - 43 03/30/2020 DTL Aminotransferase U/L 5:05 PM [employer] (AST), S Specimen Anatomical Collection Method Collection Time Receive d Time (Source) Location / / Volume Laterality Blood (Blood, 03/30/2020 3:11 PM 03/30/19 3:34 Venous) [employer] PM [employer] Geeta Ware M.D. LAB BLOOD ADD-ON Performing Organization Address City/[facility] Code Phon e Number [facility] - [address] (ABNORMAL) Alkaline Phosphatase (03/30/2020 3:11 PM [employer]) P athologist Signature Alkaline 116 (H) 35 - 104 03/30/2020 DTL Phosphatase, S U/L 5:05 PM [employer] Specimen Anatomical Collection Method Collection Time Receive d Time (Source) Location / / Volume Laterality Blood (Blood, 03/30/2020 3:11 PM 03/30/19 3:34 Venous) [employer] PM [employer] Geeta Ware M.D. LAB BLOOD ADD-ON Performing Organization Address City/[facility] Phon e Number [facility] - [address] (ABNORMAL) Basic Metabolic Panel (03/30/2020 3:11 PM TI[employer]) P athologist Signature Potassium, S 3.5 (L) 3.6 - 5.2 03/30/2020 DTL mmol/L 5:05 PM [employer] Sodium, S 144 135 - 145 03/30/2020 DTL mmol/L 5:05 PM [employer] Chloride, S 104 98 - 107 03/30/2020 DTL mmol/L 5:05 PM [employer] Bicarbonate, S 28 22 - 29 03/30/2020 DTL mmol/L 5:05 PM [employer] Anion Gap 12 7 - 15 03/30/2020 DTL 5:05 PM [employer] BUN (Blood Urea 7 6 - 21 03/30/2020 DTL Nitrogen), S mg/dL 5:05 PM [employer] Creatinine 0.99 0.59 - 03/30/2020 DTL 1.04 mg/dL 5:05 PM [employer] eGFR-Non 61 >=60 03/30/2020 DTL Black/ mL/min/BSA 5:05 PM [employer] Citizen [place] Comment: ----ADDITIONAL INFORMATION---- Estimated GFR calculated using the 2009 CKD_EPI creatinine equation. eGFR-Black/ 70 >=60 mL/min/BSA 2020 5:05 PM [employer] DTL Comment: ----ADDITIONAL INFORMATION---- Estimated GFR calculated using the 2009 CKD_EPI creatinine equation. Calcium, Total, S 9.1 8.8 - 10.2 mg/dL 03/30/2020 5:05 PM [employer] DTL Glucose, S 148 (H) 70 - 140 mg/dL 03/30/2020 5:05 PM [employer] D TL Specimen Anatomical Collection Method Collection Time Receive d Time (Source) Location / / Volume Laterality Blood (Blood, 03/30/2020 3:11 PM 03/30/19 21 3:34 Venous) [employer] PM [employer] Zac Gonzalez M.D. LAB BLOOD ADD-ON Performing Organization Address City/State/ZIP Code Phon e Number [facility] - [address] [place], [place] [address] [facility] [place] [address] [facility] [address] documented in this encounter Visit Diagnoses Diagnosis Mass Kidney documented in this encounter Additional Health Concerns Assessment Noted Time PHQ-9 Depression Total Score: 11 05/04/2013 4:05 PM CS T documented as of this encounter Care Teams Hand I Blocker Relationship Specialty Start Date End Date Elsewhere, Pcp PCP - General Internal Medicine 07/27/18 documented as of this encounter
--- OUTSIDE RECORDS SUMMARY | 2022-01-03 10:59 | XMS_ITS | Encounter Summary ---
:1955 Author Organization [facility] Address [address] [place] [id number] Care Team Providers Name Role Phone Elsewhere, Pcp Primary Care Provider Unavailable Reason for Referral Outpatient (Routine) - Closed Specialty Diagnoses / Procedures Referred By Contact Refer red To Contact Urology Zac Kuo M.D. [facility] [address] [place] [address] Referral ID Status Reason Start Date Expiration Date Visits Requ ested Visits Authorized [id number] Closed 01/05/2020 01/04/2021 1 1 Reason for Visit Appointment Request (Routine) - Closed Specialty Diagnoses / Procedures Referred By Contact Reggie harris To Contact Urology Diagnoses Carcinoma Renal Cell Left (HCC) Kandace Mckeon D.O. [address] [place] [id number] Referral ID Status Reason Start Date Expiration Date Visits Requ ested Visits Authorized [id number] Closed 12/28/2019 12/27/2020 1 1 Encounter Details Date Type Department Care Team Description 01/04/2020 Comprehensive Visit Department of Dane Kuo (Primary Dx); Urology in Zac Perez M.D. Chronic Obst ructive Pulmonary Disease Exacerbation (HCC) [place], [place] [address] [place] [phone] Social History Tobacco Use Types Packs/Day Years [...] do you attend pentecostalism or Never 2018 judaism services? Do you [...] at the request of Kandace Mckeon D.O. [address] [place], [place] [id number] CHIEF COMPLAINT Renal mass VACUUM DRIER TENDER calendar HISTORY OF PRESENT ILLNESS Ms. 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 she walks with [...] Name Type Priority Associated Diagnoses Order S [facility] Urology office Outpatient Referral Routine Expect ed: visit (clinic) 04/06/2020 (Approximate), Expires: 01/04/2023 documented as of this encounter Results (ABNORMAL) Basic Metabolic Panel (03/30/2020 3:11 PM COST ESTIMATING CLERK) P athologist Signature Potassium, S 3.5 (L) 3.6 - 5.2 03/30/2020 DTL mmol/L 5:05 PM COST ESTIMATING CLERK Sodium, S 144 135 - 145 03/30/2020 DTL mmol/L 5:05 PM COST ESTIMATING CLERK Chloride, S 104 98 - 107 03/30/2020 DTL mmol/L 5:05 PM COST ESTIMATING CLERK Bicarbonate, S 28 22 - 29 03/30/2020 DTL mmol/L 5:05 PM COST ESTIMATING CLERK Anion Gap 12 7 - 15 03/30/2020 DTL 5:05 PM COST ESTIMATING CLERK BUN (Blood Urea 7 6 - 21 03/30/2020 DTL Nitrogen), S mg/dL 5:05 PM COST ESTIMATING CLERK Creatinine 0.99 0.59 - 03/30/2020 DTL 1.04 mg/dL 5:05 PM COST ESTIMATING CLERK eGFR-Non 61 >=60 03/30/2020 DTL Black/ mL/min/BSA 5:05 PM COST ESTIMATING CLERK [place] Comment: ----ADDITIONAL INFORMATION---- Estimated GFR calculated using the 2009 CKD_EPI creatinine equation. eGFR-Black/ 70 >=60 mL/min/BSA 2020 5:05 PM COST ESTIMATING CLERK DTL Comment: ----ADDITIONAL INFORMATION---- Estimated GFR calculated using the 2009 CKD_EPI creatinine equation. Calcium, Total, S 9.1 8.8 - 10.2 mg/dL 03/30/2020 5:05 PM COST ESTIMATING CLERK DTL Glucose, S 148 (H) 70 - 140 mg/dL 03/30/2020 5:05 PM COST ESTIMATING CLERK D TL Specimen Anatomical Collection Method Collection Time Receive d Time (Source) Location / / Volume Laterality Blood (Blood, 03/30/2020 3:11 PM 03/30/19 3:34 Venous) COST ESTIMATING CLERK PM COST ESTIMATING CLERK Zac Kuo M.D. LAB BLOOD ADD-ON Performing Organization Address City/State/ZIP Code Phon e Number [facility] - [address] [place], [place] [address] [facility] [place] [address] Laboratories-[facility] [address] documented in this encounter Visit Diagnoses Diagnosis Mass Kidney - Primary Chronic Obstructive Pulmonary Disease Ex acerbation (HCC) documented in this encounter Additional Health Concerns Assessment Noted Time PHQ-9 Depression Total Score: 11 05/04/2013 4:05 PM CS T documented as of this encounter Care Teams Customer Relations Advisor Relationship Specialty Start Date End Date Elsewhere, Pcp PCP - General Internal Medicine 07/27/18 documented as of this encounter
--- OUTSIDE RECORDS SUMMARY | 2022-01-03 10:59 | XMS_ITS | Encounter Summary ---
:1955 Author Organization [facility] Address [address] [place] [address] Care Team Providers Name Role Phone Elsewhere, Pcp Primary Care Provider Unavailable Reason for Referral MRI/CAT/PET Scan (Routine) - Closed Specialty Diagnoses / Procedures Referred By Contact Refer red To Contact Radiology Diagnoses Nodule Pulmonary Harish Harkins M.D. [facility] Procedures CT Chest without IV Contrast [address] [place] [address] Referral ID Status Reason Start Date Expiration Date Visits Requ ested Visits Authorized [id number] Closed 03/20/2020 03/20/2021 1 1 F [employer]ANCE OFFICER Reason for Visit Reason Comments LNMAC Triage Encounter Details Date Type Department Care Team Description 03/20/2020 Clinical Communication Division of Pulmonary Adonay Leal LNMAC Triage Medicine in [place], [place] [address] [facility] [address] [place] [phone] Social History Tobacco Use [...] do you attend episcopal or Never 2018 catholic services? Do you [...] ASSESSMENT/RECOMMENDATION We will see Ms. Metcalf in [facility] with a dedicated CT chest to assess the nodule and recommend follow up as needed. Patient's case discussed with Dr. Harish Harkins. IMAGES NEEDED PRIOR TO CONSULT All images loaded into [employer], no additional requests needed. F SCHOOL FINANCE OFFICER documented in this encounter Plan of Treatment Not on filedocumented as of this encounter Results CT Chest without IV Contrast (03/30/2020 10:26 AM CHIEF SCHOOL FINANCE OFFICER) Anatomical Region Laterality Modality Chest, Thoracic RST LOS, Thoracic ARZ N/A Co mputed Tomography, Computed LOS, Thoracic FLA LOS Tomography Specimen (Source) Anatomical Collection Method Collection Time Re ceived Time Location / / Volume Laterality 03/30/2020 10:59 AM CHIEF SCHOOL FINANCE OFFICER Impressions 03/30/2020 12:08 PM CHIEF SCHOOL FINANCE OFFICER 1. Decrease in size of the left [...] recommendations are attached. Narrative 03/30/2020 12:08 PM CHIEF SCHOOL FINANCE OFFICER EXAM: CT CHEST WITHOUT IV CONTRAST COMPARISON: [...] documented as of this encounter Care Teams Hooker Up Relationship Specialty Start Date End Date Elsewhere, Pcp PCP - General Internal Medicine 07/27/18 documented as of this encounter
--- OUTSIDE RECORDS SUMMARY | 2022-01-03 10:59 | XMS_ITS | Encounter Summary ---
:1955 Author Organization [facility] Address [address] [place] [address] Care Team Providers Name Role Phone Elsewhere, Pcp Primary Care Provider Unavailable Encounter Details Date Type Department Care Team Description 01/04/2020 Hospital Encounter Department of Zac Gonzalez Renal Cell Laboratory Medicine CBess Left (HC C) and Pathology, [facility] in [place], [place] [address] [place] [address] Social History Tobacco Use Types Packs/Day Years [...] do you attend spiritism or Never 2018 synagogue services? Do you [...] Organization Address City/State/ZIP Code Phon e Number [facility] - [address] [place], [place] [address] [facility] [place] [place] [address] Laboratories-[facility] [address] (ABNORMAL) ALT (Alanine Aminotransferase) [...] Organization Address City/State/ZIP Code Phon e Number [facility] - [address] [place], [place] [address] [facility] [address] AST (Aspartate Aminotransferase) (01/04/2020 10:58 AM CDT) Patholo gist Method Time Signature Aspartate 33 8 - 43 01/04/2020 DTL Aminotransferase U/L 12:58 PM CDT (AST), S Specimen Anatomical Collection Method Collection Time Receive d Time (Source) Location / / Volume Laterality Blood (Blood, 01/04/2020 10:58 01/04/2020 Venous) AM CDT 11:38 AM CDT Zac Gonzalez M.D. LAB BLOOD ADD-ON Performing Organization Address City/[facility]/ZIP Code Phon e Number [facility] - [address] [place], [place] [address] [place], [place] [id number] [place] [address] Calcium, Total (01/04/2020 10:58 AM CDT) P athologist Signature Calcium, Total, 9.0 8.8 - 10.2 01/04/2020 DTL S mg/dL 12:58 PM CDT Specimen Anatomical Collection Method Collection Time Receive d Time (Source) Location / / Volume Laterality Blood (Blood, 01/04/2020 10:58 01/04/2020 Venous) AM CDT 11:38 AM CDT Zac Gonzalez M.D. LAB BLOOD ADD-ON Performing Organization Address City/State/ZIP Code Phon e Number [facility] - [address] [place], [place] [address] [facility] [place] [address] (ABNORMAL) CBC with Differential, Blood (01/04/2020 10:58 AM CDT) [facility] gist Method Time Signature Hemoglobin 13.5 11.6 [...] Organization Address City/State/ZIP Code Phon e Number [facility] - [address] [place], [place] [address] [facility] [place] [address] [facility] [address] Creatinine with Estimated GFR (01/04/2020 10:58 AM CDT) athologist Signature Creatinine 0.87 0.59 - 01/04/2020 DTL 1.04 mg/dL 12:58 PM CDT eGFR-Non 72 >=60 01/04/2020 DTL Black/ mL/min/BSA 12:58 PM CDT [place] Comment: ----ADDITIONAL INFORMATION---- Estimated GFR calculated using [...] M.D. LAB BLOOD ADD-ON Performing Organization Address City/[facility] Phon e Number [facility] - [address] BUN (Blood Urea Nitrogen) (01/04/2020 10:58 AM CDT) athologist Signature BUN (Blood Urea 9 6 - 21 01/04/2020 DTL Nitrogen), S mg/dL 12:58 PM CDT Specimen Anatomical Collection Method Collection Time Receive d Time (Source) Location / / Volume Laterality Blood (Blood, 01/04/2020 10:58 01/04/2020 Venous) AM CDT 11:38 AM CDT Zac Gonzalez M.D. 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
--- OUTSIDE RECORDS SUMMARY | 2022-01-03 10:59 | XMS_ITS | Encounter Summary ---
:1955 Author Organization [facility] Address [address] [place] [address] Care Team Providers Name Role Phone Elsewhere, Pcp Primary Care Provider Unavailable Reason for Visit Reason Comments COVID Inquiry Encounter Details Date Type Department Care Team Description 01/03/2020 Clinical Communication Department of Zac Gonzalez Urology in [place], [place] [address] [place] [phone] Social History Tobacco Use Types Packs/Day Years [...] do you attend protestant or Never 2018 latter-day services? Do you [...] documented as of this encounter Care Teams Turpentine Distiller Relationship Specialty Start Date End Date Elsewhere, Pcp PCP - General Internal Medicine 07/27/18 documented as of this encounter
--- OUTSIDE RECORDS SUMMARY | 2022-01-03 10:59 | XMS_ITS | Encounter Summary ---
:1955 Author Organization [facility] Address [address] [place] [address] Care Team Providers Name Role Phone Elsewhere, Pcp Primary Care Provider Unavailable Reason for Visit Reason Comments Request for records Encounter Details Date Type Department Care Team Description 01/05/2020 Clinical Communication Department of Regine Gonzalez for records Urology in Zac Perez M.D. [place], [place] [address] [place] [phone] Social History Tobacco Use Types [...] do you attend christian or Never 2018 orthodox services? Do you [...] AM CDT Request for records faxed to [employer] Release of Information - FAX: [phone]. documented in this encounter Plan of Treatment Not on filedocumented as of this encounter Visit Diagnoses Not on filedocumented in this encounter Additional Health Concerns Assessment Noted Time PHQ-9 Depression Total Score: 11 05/04/2013 4:05 PM CS T documented as of this encounter Care Teams Reversing Mill Roller Relationship Specialty Start Date End Date Elsewhere, Pcp PCP - General Internal Medicine 07/27/18 documented as of this encounter
--- OUTSIDE RECORDS SUMMARY | 2022-01-03 10:59 | XMS_ITS | Encounter Summary ---
:1955 Author Organization [facility] Address [address] [place] [address] Care Team Providers Name Role Phone Elsewhere, Pcp Primary Care Provider Unavailable Reason for Referral Outpatient (Routine) - Closed Specialty Diagnoses / Procedures Referred By Contact Refer red To Contact Pulmonary Medicine Geeta Rodriguez [place] M.D. 200 [place] [address] Referral ID Status Reason Start Date Expiration Date Visits Requ ested Visits Authorized [id number] Closed 03/30/2020 03/30/2021 1 1 ERS AND ACQUISITIONS CONSULTANT MRI/CAT/PET Scan (Routine) - Closed Specialty Diagnoses / Procedures Referred By Contact Refer red To Contact Radiology Diagnoses Nodule Pulmonary Geeta Rodriguez M.D. [place] Procedures CT Chest without IV Contrast [address] [place] [phone] Referral ID Status Reason Start Date Expiration Date Visits Requ ested Visits Authorized [id number] Closed 03/30/2020 03/30/2021 1 1 ERS AND ACQUISITIONS CONSULTANT Outpatient (Routine) - Closed Specialty Diagnoses / Procedures Referred By Contact Refer red To Contact Otorhinolaryngology Diagnoses Hoarseness Chronic Geeta Rodriguez [place] M.D. 200 [place] [address] Referral ID Status Reason Start Date Expiration Date Visits Requ ested Visits Authorized [id number] Closed 03/30/2020 03/30/2021 1 1 ERS AND ACQUISITIONS CONSULTANT Reason for Visit Appointment Request (Routine) - Closed Specialty Diagnoses / Procedures Referred By Contact Refer red To Contact Pulmonary Medicine Diagnoses Nodule Pulmonary Referral ID Status Reason Start Date Expiration Date Visits Requ ested Visits Authorized [id number] Closed 02/29/2020 02/28/2021 1 1 Encounter Details Date Type Department Care Team Description 03/30/2020 Comprehensive Visit Division of Harish Ware, Holli Lawrence ulady (Primary Dx); Pulmonary Medicine Geeta Urias M.D. [place]arsen ess Chronic; in [facility] [address] [place] [address] Social History Tobacco Use Types Packs/Day Years [...] do you attend advent or Never 2018 latter-day services? Do you [...] Comments Blood Pressure 148/86 03/30/2020 1:16 PM MERGERS AND ACQUISITIONS CONSULTANT Pulse 61 03/30/2020 1:16 PM MERGERS AND ACQUISITIONS CONSULTANT Temperature 36.1 ??C (97 ??F) 03/30/2020 1:16 PM MERGERS AND ACQUISITIONS CONSULTANT Respiratory Rate - - Oxygen Saturation 98% 03/30/2020 1:16 PM MERGERS AND ACQUISITIONS CONSULTANT Inhaled Oxygen Concentration - - Weight 90.2 kg (198 lb 13.7 oz) 03/30/2020 1:16 PM MERGERS AND ACQUISITIONS CONSULTANT Height 164.4 cm (5' 4.72) 03/30/2020 1:16 PM MERGERS AND ACQUISITIONS CONSULTANT Body Mass Index 33.37 03/30/2020 1:16 PM MERGERS AND ACQUISITIONS CONSULTANT documented in this encounter Consult Notes Geeta [...] intact. No evidence of disorganizedthinking. Reliable history manager language. DIAGNOSTIC REVIEW I have reviewed the patient's [...] spent a total of 45 minutes in try-uqpg-wx-face time performing a review of the record and/or discussion with the patient/caregiver as described above. ERS AND ACQUISITIONS CONSULTANT Jil Mendoza M.D. - 03/30/2020 1:30 PM [...] Dr. Harish Ware's note from today's date. ERS AND ACQUISITIONS CONSULTANT documented in this encounter Plan of Treatment [...] Microscopic: Urine, Clean Catch (03/30/2020 4:05 PM MERGERS AND ACQUISITIONS CONSULTANT) [facility] Method Time Signature Source Midstream 03/30/2020 FREDY 4:05 PM MERGERS AND ACQUISITIONS CONSULTANT Appearance Normal Normal 03/30/2020 FREDY 6:00 PM MERGERS AND ACQUISITIONS CONSULTANT Osmolality, U 536 150 - 1150 03/30/2020 FREDY mOsm/kg 5:24 PM MERGERS AND ACQUISITIONS CONSULTANT pH, U 6.1 4.5 - 8.0 03/30/2020 FREDY 5:24 PM MERGERS AND ACQUISITIONS CONSULTANT Comment: ----ADDITIONAL INFORMATION---- This test was developed and its performa nce characteristics determined by [facility] in a manner co nsistent with CLIA requirements. This test has not bee n cleared or approved by the U.S. Food and Drug Admin istration. Glucose 16 (H) 0 - 15 mg/dL 03/30/2020 6:00 PM MERGERS AND ACQUISITIONS CONSULTANT FREDY Protein, U 35 (H) <26 mg/dL 03/30/2020 6:00 PM MERGERS AND ACQUISITIONS CONSULTANT FREDY Comment: ----ADDITIONAL INFORMATION---- On 09/17/2016 the total protein assay me thod changed resulting in approximately a 15% increase in prote in values. Protein/Osmolality 0.65 (H) <0.42 Ratio 03/30/2020 6:00 PM MERGERS AND ACQUISITIONS CONSULTANT FREDY Comment: ----ADDITIONAL INFORMATION---- On 09/17/2016 the total protein assay me thod changed resulting in approximately a 15% increase in prote in values. Predicted 24 Hr Protein 454 mg/24 h 03/30/2020 6:00 PM MERGERS AND ACQUISITIONS CONSULTANT FREDY Predicted Range 112-1839 mg/24 h 03/30/2020 6:00 PM MERGERS AND ACQUISITIONS CONSULTANT R ALFA Hemoglobin, QL Negative Negative 03/30/2020 6:27 PM MERGERS AND ACQUISITIONS CONSULTANT RE NA Specimen Anatomical Collection Method Collection Time Receive d Time (Source) Location / / Volume Laterality Urine (Urine, 03/30/2020 4:05 PM 03/30/19 4:05 Clean Catch) MERGERS AND ACQUISITIONS CONSULTANT PM MERGERS AND ACQUISITIONS CONSULTANT Geeta Ware M.D. LAB URINE ORDERABLES Performing Organization Address City/State/ZIP Code Phon e Number [facility] - 200 [place], [place] [address] [place] [address] Laboratories-[facility] 200 [facility] (ABNORMAL) CBC without Differential (03/30/2020 3:11 PM MERGERS AND ACQUISITIONS CONSULTANT) [facility] gist Method Time Signature Hemoglobin 13.9 11.6 - 03/30/2020 DTL 15.0 g/dL 3:44 PM MERGERS AND ACQUISITIONS CONSULTANT Hematocrit 42.8 35.5 - 03/30/2020 DTL 44.9 % 3:44 PM MERGERS AND ACQUISITIONS CONSULTANT Erythrocytes 4.58 3.92 - 03/30/2020 DTL 5.13 3:44 PM MERGERS AND ACQUISITIONS CONSULTANT x10(12)/L MCV 93.4 78.2 - 03/30/2020 DTL 97.9 fL 3:44 PM MERGERS AND ACQUISITIONS CONSULTANT RBC Distrib Width 12.5 12.2 - 03/30/2020 DTL 16.1 % 3:44 PM MERGERS AND ACQUISITIONS CONSULTANT Platelet Count 481 (H) 157 - 371 03/30/2020 DTL x10(9)/L 3:44 PM MERGERS AND ACQUISITIONS CONSULTANT Leukocytes 10.9 (H) 3.4 - 9.6 03/30/2020 DTL x10(9)/L 3:44 PM MERGERS AND ACQUISITIONS CONSULTANT Specimen Anatomical Collection Method Collection Time Receive d Time (Source) Location / / Volume Laterality Blood (Blood, 03/30/2020 3:11 PM 03/30/19 21 3:34 Venous) MERGERS AND ACQUISITIONS CONSULTANT PM MERGERS AND ACQUISITIONS CONSULTANT Geeta Ware M.D. LAB BLOOD ADD-ON Performing Organization Address City/State/ZIP Code Phon e Number [facility] - [address] [place], [place] [address] [facility] [address] ALT (Alanine Aminotransferase) (03/30/2020 3:11 PM MERGERS AND ACQUISITIONS CONSULTANT) [facility] gist Method Time Signature Alanine 27 7 - 45 03/30/2020 DTL Aminotransferase U/L 5:05 PM MERGERS AND ACQUISITIONS CONSULTANT (ALT), S Specimen Anatomical Collection Method Collection Time Receive d Time (Source) Location / / Volume Laterality Blood (Blood, 03/30/2020 3:11 PM 03/30/19 3:34 Venous) MERGERS AND ACQUISITIONS CONSULTANT PM MERGERS AND ACQUISITIONS CONSULTANT Geeta Ware M.D. LAB BLOOD ADD-ON Performing Organization Address City/State/ZIP Code Phon e Number [facility] - [address] [place], [place] [address] [facility] DTL [place], [place] [id number] [place] [address] AST (Aspartate Aminotransferase) (03/30/2020 3:11 PM MERGERS AND ACQUISITIONS CONSULTANT) [facility] gist Method Time Signature Aspartate 22 8 - 43 03/30/2020 DTL Aminotransferase U/L 5:05 PM MERGERS AND ACQUISITIONS CONSULTANT (AST), S Specimen Anatomical Collection Method Collection Time Receive d Time (Source) Location / / Volume Laterality Blood (Blood, 03/30/2020 3:11 PM 03/30/19 21 3:34 Venous) MERGERS AND ACQUISITIONS CONSULTANT PM MERGERS AND ACQUISITIONS CONSULTANT Geeta Ware M.D. LAB BLOOD ADD-ON Performing Organization Address City/State/ZIP Code Phon e Number [facility] - [address] [place], [place] [address] [facility] [address] [facility] [address] (ABNORMAL) Alkaline Phosphatase (03/30/2020 3:11 PM MERGERS AND ACQUISITIONS CONSULTANT) P athologist Signature Alkaline 116 (H) 35 - 104 03/30/2020 DTL Phosphatase, S U/L 5:05 PM MERGERS AND ACQUISITIONS CONSULTANT Specimen Anatomical Collection Method Collection Time Receive d Time (Source) Location / / Volume Laterality Blood (Blood, 03/30/2020 3:11 PM 03/30/19 21 3:34 Venous) MERGERS AND ACQUISITIONS CONSULTANT PM MERGERS AND ACQUISITIONS CONSULTANT Geeta Ware M.D. LAB BLOOD ADD-ON Performing Organization Address City/State/[facility] Code Phon e Number [facility] - [address] [place], [place] [address] [facility] [address] Laboratories-[facility] [address] documented in this encounter Visit Diagnoses Diagnosis Nodule Pulmonary - Primary Hoarseness Chronic Mass Kidney documented in this encounter Additional Health Concerns Assessment Noted Time PHQ-9 Depression Total Score: 11 05/04/2013 4:05 PM CS T documented as of this encounter Care Teams Supervisor Sample Relationship Specialty Start Date End Date Elsewhere, Pcp PCP - General Internal Medicine 07/27/18 documented as of this encounter
--- OUTSIDE RECORDS SUMMARY | 2022-01-03 10:59 | XMS_ITS | Encounter Summary ---
:1955 Author Organization [facility] Address [address] [place] [address] Care Team Providers Name Role Phone Elsewhere, Pcp Primary Care Provider Unavailable Encounter Details Date Type Department Care Team Description 03/30/2020 Hospital Encounter Department of Laboratory Geeta Rodriguez [facility] Kidney Medicine and Pathology, [place], [place], [place] [address] [place] [address] Social History Tobacco Use Types Packs/Day [...] or relatives? How often do you attend yazidi or Never 2018 restoration services? Do you belong to any clubs or No 02/26/2019 organizations such as yazidi groups, unions, fraternal or athletic groups, or [...] 03/30/2020 4:05 PM Res ults for this WHEEL OF FORTUNE DEALER procedure are i n the results section. URINALYSIS WITH Routine 03/30/2020 4:05 PM Mass Kidney Result s for this MICROSCOPIC WHEEL OF FORTUNE DEALER procedure are i n the results section. documented in this encounter Results (ABNORMAL) Microscopic Manual (03/30/2020 4:05 PM WHEEL OF FORTUNE DEALER) P athologist Signature Microscopy Abnormal 03/30/2020 FREDY 6:27 PM WHEEL OF FORTUNE DEALER WBC 4-10 /hpf 03/30/2020 FREDY 6:27 PM WHEEL OF FORTUNE DEALER Comment: ----REFERENCE VALUE---- 1-3 ??(Males) 1-10 (Females) Casts, Hyaline 4-10 /lpf 03/30/2020 6:27 PM WHEEL OF FORTUNE DEALER RE NA Squamous Epithelial 4-10 /hpf 03/30/2020 6:[address] FREDY Cells, U Bacteria Present (A) 03/30/2020 6:27 PM WHEEL OF FORTUNE DEALER FREDY Crystals Calcium Oxalate 03/30/2020 6:27 PM WHEEL OF FORTUNE DEALER R ALFA crystals present Specimen Anatomical Collection Method Collection Time Receive d Time (Source) Location / / Volume Laterality Urine 03/30/2020 4:05 PM 4:05 WHEEL OF FORTUNE DEALER PM WHEEL OF FORTUNE DEALER Geeta Ware M.D. LAB URINE ORDERABLES Performing Organization Address City/State/ZIP Code Phon e Number [facility] - [address] [place], [place] [address] [facility] [place] [address] Laboratories-[facility] [address] (ABNORMAL) Urinalysis with Microscopic: Urine, Clean Catch (03/30/2020 4:05 PM WHEEL OF FORTUNE DEALER) [facility] gist Method Time Signature Source Midstream 03/30/2020 FREDY 4:05 PM WHEEL OF FORTUNE DEALER Appearance Normal Normal 03/30/2020 FREDY 6:00 PM WHEEL OF FORTUNE DEALER Osmolality, U 536 150 - 1150 03/30/2020 FREDY mOsm/kg 5:24 PM WHEEL OF FORTUNE DEALER pH, U 6.1 4.5 - 8.0 03/30/2020 FREDY 5:24 PM WHEEL OF FORTUNE DEALER Comment: ----ADDITIONAL INFORMATION---- This test was developed and its performa nce characteristics determined by [facility] in a manner co nsistent with CLIA requirements. This test has not bee n cleared or approved by the U.S. Food and Drug Admin istration. Glucose 16 (H) 0 - 15 mg/dL 03/30/2020 6:00 PM WHEEL OF FORTUNE DEALER FREDY Protein, U 35 (H) <26 mg/dL 03/30/2020 6:00 PM WHEEL OF FORTUNE DEALER FREDY Comment: ----ADDITIONAL INFORMATION---- On 09/17/2016 the total protein assay me thod changed resulting in approximately a 15% increase in prote in values. Protein/Osmolality 0.65 (H) <0.42 Ratio 03/30/2020 6:00 PM WHEEL OF FORTUNE DEALER FREDY Comment: ----ADDITIONAL INFORMATION---- On 09/17/2016 the total protein assay me thod changed resulting in approximately a 15% increase in prote in values. Predicted 24 Hr Protein 454 mg/24 h 03/30/2020 6:00 PM WHEEL OF FORTUNE DEALER FREDY Predicted Range 112-1839 mg/24 h 03/30/2020 6:00 PM WHEEL OF FORTUNE DEALER R ALFA Hemoglobin, QL Negative Negative 03/30/2020 6:27 PM WHEEL OF FORTUNE DEALER RE NA Specimen Anatomical Collection Method Collection Time Receive d Time (Source) Location / / Volume Laterality Urine (Urine, 03/30/2020 4:05 PM 03/30/19 4:05 Clean Catch) WHEEL OF FORTUNE DEALER PM WHEEL OF FORTUNE DEALER Geeta Ware M.D. LAB URINE ORDERABLES Performing Organization Address City/State/ZIP Code Phon e Number [facility] - [address] [place], [place] [address] [place] [address] Laboratories-[facility] [address] documented in this encounter Visit Diagnoses Diagnosis Mass Kidney documented in this encounter Additional Health Concerns Assessment Noted Time PHQ-9 Depression Total Score: 11 05/04/2013 4:05 PM CS T documented as of this encounter Care Teams It Solutions Architect Relationship Specialty Start Date End Date Elsewhere, Pcp PCP - General Internal Medicine 07/27/18 documented as of this encounter
--- OUTSIDE RECORDS SUMMARY | 2022-01-03 10:59 | XMS_ITS | Encounter Summary ---
:1955 Author Organization [facility] Address [address] [place] [address] Care Team Providers Name Role Phone Elsewhere, Pcp Primary Care Provider Unavailable Reason for Referral MRI/CAT/PET Scan (Routine) - Canceled Specialty Diagnoses / Procedures Referred By Contact Refer red To Contact Radiology Diagnoses Mass Kidney Geeta Rodriguez M.D. [place] Procedures CT Abdomen Pelvis with IV Contrast [address] [place] [phone] Referral ID Status Reason Start Date Expiration Date Visits V isits Requested Authorized [id number] Canceled 03/30/2020 03/30/2021 1 1 NESS CONSULT Reason for Visit MRI/CAT/PET Scan (Routine) - Canceled Specialty Diagnoses / Procedures Referred By Contact Refer red To Contact Radiology Diagnoses Mass Kidney Geeta Rodriguez M.D. [place] Procedures CT Abdomen Pelvis with IV Contrast [address] [place] [address] Referral ID Status Reason Start Date Expiration Date Visits V isits Requested Authorized [id number] Canceled 03/30/2020 03/30/2021 1 1 Encounter Details Date Type Department Care Team Description 03/30/2020 Hospital Encounter Department of Radiology, Geeta Rodriguez Mass Kidney leandro Sagastume M.D. [place], [place] [address] [place] [phone] Social History Tobacco Use Types Packs/Day [...] do you attend protestant or Never 2018 mormon services? Do you [...] as of this encounter Care Teams Air Quality Manager Relationship Specialty Start Date End Date Elsewhere, Pcp PCP - General Internal Medicine 07/27/18 documented as of this encounter
--- OUTSIDE RECORDS SUMMARY | 2022-01-03 10:59 | XMS_ITS | Encounter Summary ---
:[address] [facility] Address [address] [place] [address] Care Team Providers Name Role Phone Elsewhere, Pcp Primary Care Provider Unavailable Encounter Details Date Type Department Care Team Description 04/07/2020 Hospital Encounter Department of Josh Rodriguez For Laboratory Medicine Geeta Urias M.D. Screen ing For Other in [place], Viral Disease [facility] (COVID-19) [address] [place] [phone] Social History Tobacco Use Types Packs/Day Years [...] do you attend mandaen or Never 2018 synagogue services? Do you [...] For Re sults for this RNA, V RUBY ON RAILS ENGINEER Screening For Other procedur e are in Viral Diseases the results (COVID-19) section. documented in this encounter Results SARS Coronavirus-2 RNA, V Asymptomatic (04/07/2020 9:12 AM RUBY ON RAILS ENGINEER) [facility] Method Time Signature SARS-CoV-2 Swab, 04/07/2020 MKTO Specimen Nasopharynx 7:58 PM RUBY ON RAILS ENGINEER Source SARS CoV-2 Undetected Undetected 04/07/2020 ARTIS RNA, TMA 7:58 PM RUBY ON RAILS ENGINEER Comment: SARS-CoV-2 RNA absent. This result does not rule out COVID-19 in the patient, as the sensitivity of the test depends o n the timing of the specimen collection and the quality of the specim en. Result should be correlated with patient's history and clinical presentat ion. ----ADDITIONAL INFORMATION---- This molecular amplification test was pe rformed using the Aptima SARS-CoV-2 assay ([employer] on the [employer]il[employer] tem under emergency use authorization (EUA) by the U.S. Food and Drug Administ ration. Fact sheets for this EUA assay can be fo und at the following links: For Healthcare Providers: https://www.[employer] a.gov/media/340959/download For Patients: https://www.fda.gov/media/ 499107/download Specimen Anatomical Collection Method Collection Time Receive d Time (Source) Location / / Volume Laterality Varies 04/07/2020 9:12 AM 3:22 (Nasopharynx) RUBY ON RAILS ENGINEER PM RUBY ON RAILS ENGINEER Geeta Ware M.D. LAB MICROBIOLOGY - GENERAL O RDERABLES Performing Organization Address City/State/ZIP Code Phon e Number [facility]- [address] [place] [address] [place] [address] [address] documented in this encounter Visit Diagnoses Diagnosis Encounter For Screening For Other Viral Diseases (COVID-19) documented in this encounter Additional Health Concerns Infection Onset Date Last Indicated Resolved Time COVID19 Pending 04/07/2020 04/07/2020 04/07/2020 7:59 PM RUBY ON RAILS ENGINEER Assessment Noted Time PHQ-9 Depression Total Score: 11 05/04/2013 4:05 PM CS T documented as of this encounter Care Teams Supervisor Mold Cleaning And Storage Relationship Specialty Start Date End Date Elsewhere, Pcp PCP - General Internal Medicine 07/27/18 documented as of this encounter
--- OUTSIDE RECORDS SUMMARY | 2022-01-03 11:00 | XMS_ITS | Encounter Summary ---
:[address] [facility] Address [address] [place] [address] Care Team Providers Name Role Phone Elsewhere, Pcp Primary Care Provider Unavailable Reason for Referral Outpatient (Routine) - Closed Specialty Diagnoses / Procedures Referred By Contact Refer red To Contact Diagnoses Atrial [facility]ibrillation [facility] Echo Transesophageal (MICHAEL) RolandoB.S. [address] [place], [place] [address] Referral ID Status Reason Start Date Expiration Date Visits Requ ested Visits Authorized [id number] Closed 04/19/2019 04/18/2020 1 1 AL DESIGNER SALESPERSON Reason for Visit Outpatient (Routine) - Closed Specialty Diagnoses / Procedures Referred By Contact Refer red To Contact Diagnoses Atrial Fibrillation Unspecified Marla Yeager [facility] Procedures Echo Transesophageal (MICHAEL) MShaan.B.S. [address] [place], [place] [address] Referral ID Status Reason Start Date Expiration Date Visits Requ ested Visits Authorized [id number] Closed 04/19/2019 04/18/2020 1 1 Encounter Details Date Type Department Care Team Description 04/19/2019 Hospital Encounter Department of Liseth Yeager F ibrillation Cardiovascular Diseases Marla ([facility] ) in [facility] PatriciaB.B.S. [address] [facility] [address] [place] [phone] Social History Tobacco Use Types Packs/Day Years [...] do you attend methodist or Never 2018 yarsanism services? Do you [...] 20 mg by mouth. 0 mg tablet flecainide (TAMBOCOR) Take 1 tablet (100 mg 180 tablet 1 100 mg tablet total) by mouth 2 (two) times a day. levothyroxine Take 25 mcg by mouth 0 [...] 0 03/24/2019 glycol, 0.4-0.3 % ophthalmic solution omeprazole (PriLOSEC) Take 1 capsule (40 mg [...] times a day. For heart rate control. topiramate (TOPAMAX) Take 1 tablet (25 mg [...] management as per previous homegoing care plan. warfarin (COUMADIN) 5 Take 1 tablet (5 [...] Results for this AND LIMITED DOPPLER AM FLORAL DESIGNER SALESPERSON (HCC) procedur e are in the results section. documented in this encounter Results (MICHAEL) 2D WITH COLOR AND LIMITED DOPPLER (04/19/2019 11:49 AM FLORAL DESIGNER SALESPERSON) Anatomical Region Laterality Modality Other Specimen (Source) Anatomical Collection Method Collection Time Re ceived Time Location / / Volume Laterality 04/19/2019 10:15 AM FLORAL DESIGNER SALESPERSON Narrative 04/20/2019 7:51 AM FLORAL DESIGNER SALESPERSON For the complete report, see the Order-L [...] documented as of this encounter Care Teams Automotive Exhaust Emissions Technician Relationship Specialty Start Date End Date Elsewhere, Pcp PCP - General Internal Medicine 07/27/18 documented as of this encounter
--- OUTSIDE RECORDS SUMMARY | 2022-01-03 11:00 | XMS_ITS | Encounter Summary ---
:1955 Author Organization [facility] Address [address] [place] [address] Care Team Providers Name Role Phone Elsewhere, Pcp Primary Care Provider Unavailable Reason for Visit Reason Comments Follow-up Encounter Details Date Type Department Care Team Description 08/24/2019 Clinical Communication Department of Kitty Mchugh Foll [facility] Cardiovascular Medicine R.N. in [facility] [address] [place] [phone] Social History Tobacco Use Types Packs/Day [...] do you attend baptism or Never 2018 adventism services? Do you [...] GAIL Morelos from [facility]; [place], [place]. She was calling seeking verification that [...] name is Tamy and the number is [phone], ext #[phone]. Would you mind given them [...] documented as of this encounter Care Teams Mechanical Shovel Operator Relationship Specialty Start Date End Date Elsewhere, Pcp PCP - General Internal Medicine 07/27/18 documented as of this encounter
--- OUTSIDE RECORDS SUMMARY | 2022-01-03 11:00 | XMS_ITS | Encounter Summary ---
:1955 Author Organization [facility] Address [address] [place] [id number] Care Team Providers Name Role Phone Elsewhere, Pcp Primary Care Provider Unavailable Encounter Details Date Type Department Care Team Description 12/30/2019 Clinical Communication Department of Urology Zac Gonzalez in [place] [address] [place] [address] Social History Tobacco Use Types Packs/Day Years [...] do you attend advent or Never 2018 evangelical services? Do you [...] Microscopic: Urine, Midstream (01/04/2020 12:26 PM CDT) [facility] Method Time Signature Source Midstream 01/04/2020 FREDY 12:26 PM CDT Appearance Normal Normal 01/04/2020 FREDY 1:38 PM CDT Osmolality, U 483 150 - 1150 01/04/2020 FREDY mOsm/kg 1:24 PM CDT pH, U 5.4 4.5 - 8.0 01/04/2020 FREDY 1:24 PM CDT Comment: ----ADDITIONAL INFORMATION---- This test was developed and its performa nce characteristics determined by [facility] in a manner co nsistent [...] Address City/State/ZIP Code Phon e Number [facility] - [address] [place], [place] [address] [facility] [place] [address] [facility] [address] DX Chest AP or [...] Organization Address City/State/ZIP Code Phon e Number [facility] - [address] [place], [place] [address] [place] [address] (ABNORMAL) ALT (Alanine Aminotransferase) (01/04/2020 10:58 AM CDT) [facility] Method Time Signature Alanine 56 (H) 7 - 45 01/04/2020 DTL Aminotransferase U/L 12:58 PM CDT (ALT), S Specimen Anatomical Collection Method Collection Time Receive d Time (Source) Location / / Volume Laterality Blood (Blood, 01/04/2020 10:58 01/04/2020 Venous) AM CDT 11:38 AM CDT Zac Gonzalez M.D. LAB BLOOD ADD-ON Performing Organization Address City/[facility]/ZIP Code Phon e Number [facility] - [address] AST (Aspartate Aminotransferase) (01/04/2020 10:58 AM CDT) [facility] Method Time Signature Aspartate 33 8 - 43 01/04/2020 DTL Aminotransferase U/L 12:58 PM CDT (AST), S Specimen Anatomical Collection Method Collection Time Receive d Time (Source) Location / / Volume Laterality Blood (Blood, 01/04/2020 10:58 01/04/2020 Venous) AM CDT 11:38 AM CDT Zac Gonzalez M.D. LAB BLOOD ADD-ON Performing Organization Address City/State/ZIP Code Phon e Number [facility] - [address] [place], [place] [address] Calcium, Total (01/04/2020 10:58 AM CDT) [...] Address City/State/ZIP Code Phon e Number [facility] - [address] [place], [place] [address] [facility] [place] [address] [facility] 200 [facility] (ABNORMAL) CBC with Differential, Blood (01/04/2020 10:58 AM CDT) [facility] Method Time Signature Hemoglobin 13.5 11.6 - [...] Address City/State/ZIP Code Phon e Number [facility] - [address] [place], [place] [address] [place] [address] Creatinine with Estimated GFR (01/04/2020 10:58 AM CDT) athologist Signature Creatinine 0.87 0.59 - 01/04/2020 DTL 1.04 mg/dL 12:58 PM CDT eGFR-Non 72 >=60 01/04/2020 DTL Black/ mL/min/BSA 12:58 PM CDT Burmese Comment: ----ADDITIONAL INFORMATION---- Estimated GFR calculated using [...] M.D. LAB BLOOD ADD-ON Performing Organization Address City/[facility]/ZIP Code Phon e Number [facility] - [address] [place], [place] [address] [facility] [place] [id number] [place] [address] [facility] BUN (Blood Urea Nitrogen) (01/04/2020 [...] Address City/State/ZIP Code Phon e Number [facility] - [address] [place], [place] [address] [facility] [place] [id number] [place] [address] Electrolyte (Chem 4) Panel [...] Address City/State/ZIP Code Phon e Number [facility] - [address] [place], [place] [address] [facility] [place] [address] [facility] [address] documented in this encounter Visit Diagnoses Diagnosis Carcinoma Renal Cell Left (HCC) - Primar y Carcinoma Renal Cell Left (HCC) documented in this encounter Additional Health Concerns Assessment Noted Time PHQ-9 Depression Total Score: 11 05/04/2013 4:05 PM CS T documented as of this encounter Care Teams Mate First Relationship Specialty Start Date End Date Elsewhere, Pcp PCP - General Internal Medicine 07/27/18 documented as of this encounter
--- OUTSIDE RECORDS SUMMARY | 2022-01-03 11:00 | XMS_ITS | Encounter Summary ---
:1955 Author Organization [facility] Address [address] [place] [address] Care Team Providers Name Role Phone Elsewhere, Pcp Primary Care Provider Unavailable Reason for Referral Outpatient (Routine) - Closed Specialty Diagnoses / Procedures Referred By Referred To Contact Contact Cardiovascular Diseases / Diagnoses Flutter Atrial (HCC) Atrial Fibrillation Paroxysmal (HCC) Tucker Rutherford [facility] Cardiovascular Disease P.A.-C. [address] [place] [address] Referral ID Status Reason Start Date Expiration Date Visits Requ ested Visits Authorized [id number] Closed 04/21/2019 04/20/2020 1 1 SYSTEMS DEVELOPER MRI/CAT/PET Scan (Routine) - Closed Specialty Diagnoses / Procedures Referred By Contact Refer red To Contact Radiology Diagnoses Flutter Atrial (HCC) Atrial Fibrillation Paroxysmal (HCC) Tucker Rutherford P.A.-Kadeem [facility] Procedures CT Cardiac Angiogram Pulmonary Veins with IV [address] [place] [address] Referral ID Status Reason Start Date Expiration Date Visits Requ ested Visits Authorized [id number] Closed 04/21/2019 04/20/2020 1 1 SYSTEMS DEVELOPER Outpatient (Routine) - Closed Specialty Diagnoses / Procedures Referred By Contact Refer red To Contact Diagnoses Flutter Atrial (HCC) Atrial Fibrillation Paroxysmal (HCC) Tucker Rutherford P.A.-C. [facility] Procedures ECG 12 Lead [address] [place] [address] Referral ID Status Reason Start Date Expiration Date Visits Requ ested Visits Authorized [id number] Closed 04/21/2019 04/20/2020 1 1 SYSTEMS DEVELOPER Outpatient (Routine) - Closed Specialty Diagnoses / Procedures Referred By Contact Refer red To Contact Diagnoses Flutter Atrial (HCC) Atrial Fibrillation Paroxysmal (HCC) Tucker Rutherford P.A.-C. [facility] Procedures ECG Heart rhythm monitor (Holter) [address] [place], [place] [address] Referral ID Status Reason Start Date Expiration Date Visits Requ ested Visits Authorized [id number] Closed 04/21/2019 04/20/2020 1 1 SYSTEMS DEVELOPER Outpatient (Routine) - Closed Specialty Diagnoses / Procedures Referred By Contact Refer red To Contact Diagnoses Flutter Atrial (HCC) Atrial Fibrillation Paroxysmal (HCC) Tucker Rutherford P.A.-C. [facility] Procedures Echo Transthoracic (TTE) [address] [place] [address] Referral ID Status Reason Start Date Expiration Date Visits Requ ested Visits Authorized [id number] Closed 04/21/2019 04/20/2020 1 1 SYSTEMS DEVELOPER Encounter Details Date Type Department Care Team Description 04/19/2019 - Hospital Encounter [facility] Shobha, Flutter A trial (HCC) (Primary Dx); 04/21/[address] [facility], Fibrillation Atrial (HCC); [facility] Atrial Fibrillation Paroxysmal (HCC) [facility], [address] [facility] Fourth Floor [place], [place] [address] [facility] [address] [place], [place] [phone] [address] (Work) [phone] Social History Tobacco Use Types Packs/Day Years [...] do you attend moravian or Never 2018 religion services? Do you [...] Comments Blood Pressure 137/84 04/21/2019 8:30 AM LEAD SYSTEMS DEVELOPER Pulse 78 04/21/2019 8:30 AM LEAD SYSTEMS DEVELOPER Temperature 37.5 ??C (99.5 ??F) 04/21/2019 8:15 AM LEAD SYSTEMS DEVELOPER Respiratory Rate 22 04/21/2019 11:15 AM LEAD SYSTEMS DEVELOPER Oxygen Saturation 91% 04/21/2019 8:30 AM LEAD SYSTEMS DEVELOPER Inhaled Oxygen Concentration - - Weight 98.3 kg (216 lb 11.4 oz) 04/21/2019 3:00 AM LEAD SYSTEMS DEVELOPER Height 165.6 cm (5' 5.2) 04/19/2019 8:35 AM LEAD SYSTEMS DEVELOPER Body Mass Index 35.85 04/19/2019 8:35 AM LEAD SYSTEMS DEVELOPER documented in this encounter Discharge Summaries Tucker Rutherford P.A.-C. - 04/21/2019 10:04 AM CST Images from the original note were not included. DISCHARGE SUMMARY BRIEF OVERVIEW Discharge Provider: Marla Yeager M.B.B.SEdilma Primary Care Providers: Elsewhere, Pcp (General) [address] [facility] [address] Primary Care Provider Phone Number: None Primary [...] HOSPITAL COURSE Iris Metcalf was discharged from [facility] following an ablation performed by Dr. Yeager [...] will occur in approximately 3 months at [facility] in Heart Rhythm Services. Testing at that time will include a 24 hr Holter monitor, ECG, echocardiogram, and cardiac Ct. Patient was also instructed to follow up with Primary Care locally in the next 7-10 days for post hospital follow up. Discharge instructions were provided to the patient and caregiver(s). Juan J Rutherford P.A.-C. SYSTEMS DEVELOPER documented in this encounter Discharge Instructions Discharge InstructionsHiTucker fish P.A.-C. - 04/21/2019 11:05 AM LEAD SYSTEMS DEVELOPER Hospital Problems as of 04/21/2019 1. * [...] 4:00 p.m., contact the Electrophysiology Service at [phone]. For questions occurring after business hours, on weekends, nights, or holidays call [phone] and ask for Electrophysiology Radiologic Technology Program Director. General Follow-Up: You should follow up locally with your primary care provider in approximately 2 weeks for post hospitalization follow-up. Take a copy of the dismissal summary from [facility] to your provider. [facility] Follow-Up: A follow-up appointment will be scheduled for you in 3 months in the Heart Rhythm Center or Cardiovascular Exam Room. You will be contacted by [facility] to set up the follow up. Tests will include the following: electrocardiogram, 24-hour Holter monitor, transthoracic echocardiogram, and CT scan of heart. Our appointment coordinators will be contacting you. If you have not been notified about your appointment, please contact the electrophysiology community recreation coordinator at . Anticoagulation: Anticoagulation with Coumadin [...] avoid/skip your follow-up appointments, they are important! SYSTEMS DEVELOPER AttachmentsThe following attachments cannot be sent through Care Everywhere. Acetaminophen (By mouth) (Burundian)Flecainide (By mouth) (Burundian)Omeprazole (By mouth) (Burundian)documented in this encounter Medications at Time of [...] and Lissette Breen Pharm.D., R.Ph. Contact Pager [phone] with any questions about this note. SYSTEMS DEVELOPER Tucker Rutherford P.A.-C. - 04/20/2019 11:26 AM [...] Clinical Cardiac Electrophysiology Fellow 04/20/2019 8:21 AM LEAD SYSTEMS DEVELOPER SYSTEMS DEVELOPER Aria Houser APRN, C.N.P., M.S.N. - 04/19/2019 [...] the hospital for monitoring while on flecainide. SYSTEMS DEVELOPER Jayda Whitehead, Pharm.D., R.Ph. - 04/19/2019 4:01 [...] and Jayda Haddad Pharm.D., R.Ph. Contact Pager [phone] with any questions about this note. SYSTEMS DEVELOPER documented in this encounter Procedure Notes Porfirio [...] BLOOD LOSS Estimated Blood Loss: 1-75 ml SYSTEMS DEVELOPER documented in this encounter Consult Notes Flores Romeo R.N. - 04/21/2019 9:05 AM CSTAssociated Order(s): IP CONSULT TO CARE MANAGEMENT Discharge Planning Assessment SUBJECTIVE Referral Data Referral Source: Nurse Referral Name: Valerie Jaquez R.N. Referral Reason: Discharge Planning Discharge Planning: Other (Comment)([facility]) Who was present during the interview?: Patient Rig Manager Services Used: No Patient Information Primary Caregiver: Other (Comment)(staff at facility) Primary Nurse Name/Number: Bernie Diet/Texture: By mouth Legal Information Legal Decision Maker: Self Advance Directives: Power of Java Manager for health care, Power of Java Manager for finance Advance Directives Status: Not Activated Power of Java Manager for Health Care Agent Name: Ramin Metcalf Power of Java Manager for Health Agent Contact Info: [phone] Power of Java Manager for Finance Agent Name: Ramin Metcalf Power of Java Manager for Finance Agent Contact Info: [phone] Caregiver Information Caregiver Name: [facility] Caregiver Relationship: paid staff Caregiver Caregiver Address: [address] [place] [address] Services Requested Discharge Planning to Facility OBJECTIVE [...] Communication: Can write, Talks, Understands speaking, Understands Bur[place]ian Environmental Supports Home Environment: Retirement Care Facility Name: [facility] Anticipated Modifications to the Patient's Home: [...] Residence: Other (Comment) Type of Residence Other: [facility] Care Facility Name: [facility] Support Systems: Children Assistance Recommended after Discharge: 24 hour supervision Home Care Services: No Anticipated Discharge Destination: [facility] Does the patient need discharge transport arranged?: Yes Has discharge transport been arranged?: Yes What day is the transport expected?: 04/21/19 What time is the transport expected?: 1130 Discharge Provided By: Chasity [place]: [phone] ASSESSMENT / PLAN ??Assessment: Met with the patient to discuss her prior level of care and home going needs. I reviewed my role of Relief Charge Nurse. Patient reviewed her current hospitalization and appears to have understanding, insightand competence of her needs. Patient reviewed her home environment and support system; reviewing that her primary career services manager - facility staff will be able to provide care to patient post discharge. Patient reports that she feels safe and supported to return [facility]. ?? Patient stated that she has two sons that are her support system. Patient hopes to transition to an assisted living center. Plan: Patient appears to have understanding, insight and competence into patient needs and is appropriately planning for discharge at this time. I recommended the following: none at this time 1. Patient plans to return to [facility] once medically stable for DC 2. Resources given:None 3. CM will continue to follow for any needs that arise. 4. Transportation home will be provided by [place] [phone]. 5. Reconnections needed [facility]. Patient to return to: Destination - Selection Complete Service Provider Request Status Selected Services Address Phone Number Fax Number [facility] Selected Transitional Care Unit [address] [address] [phone] Contact: Intake Patient has a MA bedhold. Facility prefers patient return by 1300. Transportation to be provided by [place] at 1130. Please contact Case Management if [...] arise. Signed by: Flores Romeo R.N. 04/21/2019 SYSTEMS DEVELOPER documented in this encounter Nursing Notes Talya Duffy R.N. - 04/21/2019 10:55 AM CST Pt d/c to [facility]. Facility AVS, discharge summary and MAR report printed, discussed andhanded to pt to relay to SNF. Nurse to nurse report done. Education complete. Teach-back acquired. All questions answered. Transport arranged. Escort requested. SYSTEMS DEVELOPER Mary Cortés, R.R.T., L.R.T. - 04/20/2019 12:42 AM CST Patient is a 64 y.o. female admitted on 04/19/2019 Alert Information: Plan of Care: Patient refused PAP therapy tonight. RT will continue to offer assistance. Principal Problem Atrial Fibrillation Paroxysmal (HCC) Oxygen Therapy $Delivery Method: Room air Arterial Line 04/19/19 Right Radial (Active) Placement Date/Time: 04/19/19 (c) 5008 Procedural Pause Completed: Yes Hand Hygiene Performed Prior to Insertion: Yes Site Prep: Chlorhexidine (Preferred) Sterile Barriers Used : Cap;Gloves;Gown;Large drape;Mask (Clinician);Mask (All others in ro... SYSTEMS DEVELOPER Naren Michaels R.N. - 04/19/2019 9:35 PM CST Shift Goals: Clinical Goals for the Shift: pt remain safe Identify possible barriers to meeting goals/advancing plan of care: pt up with assist and walker End of Shift Summary: met SYSTEMS DEVELOPER Naren Peng R.R.T., L.R.T. - 04/19/2019 5:29 PM CST Assist with CPAP SYSTEMS DEVELOPER Robbie Emerson R.N. - 04/19/2019 8:38 AM CST Patient was admitted for ablation/ electrophysiology procedure. Reviewed HPI, preliminary testing and confirmed medications taken this morning. The last dose of Warfarin taken was 04/19/2019. Pain management strategies post-procedure were discussed. All questions were answered. Patient would like family member Ramin updated with procedural updates. The phone number to reach this family member is [phone]. SYSTEMS DEVELOPER documented in this encounter Plan of Treatment Scheduled Referrals Name Type Priority Associated Diagnoses Order S chedu Cardiovascular Disease Outpatient Routine Flutter A trial (HCC) Expected: - Heart rhythm consult Referral Atrial Fibrillatio n 07/21/2019 (clinic) Paroxysmal (HCC) (Approximat e), Expires: 04/21/2022 documented as of this encounter Procedures Procedure Name Priority Date/Time Associated Comments Diagnosis ECG Routine 04/21/2019 Results for 10:47 AM LEAD SYSTEMS DEVELOPER this procedure are in the results section. PROTHROMBIN TIME (PT), Routine 04/21/2019 6:15 Re sults for P AM LEAD SYSTEMS DEVELOPER this procedure are in the results section. CBC WITH DIFFERENTIAL, Routine 04/21/2019 6:15 Re sults for B AM LEAD SYSTEMS DEVELOPER this procedure are in the results section. BUN (BLOOD UREA Routine 04/21/2019 6:15 Results f or NITROGEN), S/P AM LEAD SYSTEMS DEVELOPER this procedur e are in the results section. POTASSIUM, S/P Routine 04/21/2019 6:15 Results fo r AM LEAD SYSTEMS DEVELOPER this procedure are in the results section. MAGNESIUM, S Routine 04/21/2019 6:15 Results for AM LEAD SYSTEMS DEVELOPER this procedure are in the results section. CREATININE WITH EGFR, Routine 04/21/2019 6:15 Res ults for S/P AM LEAD SYSTEMS DEVELOPER this procedure are in the results section. ECG Routine 04/20/2019 Results for 10:44 PM LEAD SYSTEMS DEVELOPER this procedure are in the results section. DX CHEST AP OR PA AND RAD - Timed 04/20/2019 8:18 Res ults for LATERAL 2 VIEWS (for specific AM LEAD SYSTEMS DEVELOPER this proced ure dates/times) are in the results section. ECG Routine 04/20/2019 6:42 Results for AM LEAD SYSTEMS DEVELOPER this procedure are in the results section. PROTHROMBIN TIME (PT), Routine 04/20/2019 6:34 Re sults for P AM LEAD SYSTEMS DEVELOPER this procedure are in the results section. CBC WITH DIFFERENTIAL, Routine 04/20/2019 6:34 Re sults for B AM LEAD SYSTEMS DEVELOPER this procedure are in the results section. BUN (BLOOD UREA Routine 04/20/2019 6:34 Results f or NITROGEN), S/P AM LEAD SYSTEMS DEVELOPER this procedur e are in the results section. POTASSIUM, S/P Routine 04/20/2019 6:34 Results fo r AM LEAD SYSTEMS DEVELOPER this procedure are in the results section. MAGNESIUM, S Routine 04/20/2019 6:34 Results for AM LEAD SYSTEMS DEVELOPER this procedure are in the results section. CREATININE WITH EGFR, Routine 04/20/2019 6:34 Res ults for S/P AM LEAD SYSTEMS DEVELOPER this procedure are in the results section. GLUCOSE POCT, B Routine 04/19/2019 4:12 Results f or PM LEAD SYSTEMS DEVELOPER this procedure are in the results section. POTASSIUM, S/P STAT 04/19/2019 3:42 Results fo r PM LEAD SYSTEMS DEVELOPER this procedure are in the results section. MAGNESIUM, S STAT 04/19/2019 3:42 Results for PM LEAD SYSTEMS DEVELOPER this procedure are in the results section. PROTHROMBIN TIME (PT), STAT 04/19/2019 2:53 Re sults for P PM LEAD SYSTEMS DEVELOPER this procedure are in the results section. ABLATION - ATRIAL Routine 04/19/2019 2:26 Atrial Results for FLUTTER - RIGHT PM LEAD SYSTEMS DEVELOPER Fibrillation (HCC) this p rocedure are in the results section. ABLATION - WACA Routine 04/19/2019 2:26 Atrial Results f or PM LEAD SYSTEMS DEVELOPER Fibrillation (HCC) this proc edure are in the results section. HEART RHYTHM PROCEDURE Routine 04/19/2019 2:26 Atrial Re sults for PM LEAD SYSTEMS DEVELOPER Fibrillation (HCC) this proc edure are in the results section. HEART RHYTHM PROCEDURE Routine 04/19/2019 2:26 Atrial Re sults for PM LEAD SYSTEMS DEVELOPER Fibrillation (HCC) this proc edure are in the results section. HEART RHYTHM PROCEDURE Routine 04/19/2019 2:26 Atrial Re sults for PM LEAD SYSTEMS DEVELOPER Fibrillation (HCC) this proc edure are in the results section. ABLATION PVI Routine 04/19/2019 2:26 Atrial Results for PM LEAD SYSTEMS DEVELOPER Fibrillation (HCC) this proc edure are in the results section. ABG AND LYTES EG6+, Routine 04/19/2019 2:10 Resul ts for POCT, B PM LEAD SYSTEMS DEVELOPER this procedure are in the results section. ACT, POCT, B Routine 04/19/2019 2:03 Results for PM LEAD SYSTEMS DEVELOPER this procedure are in the results section. GLUCOSE POCT, B Routine 04/19/2019 2:02 Results f or PM LEAD SYSTEMS DEVELOPER this procedure are in the results section. ACT, POCT, B Routine 04/19/2019 1:19 Results for PM LEAD SYSTEMS DEVELOPER this procedure are in the results section. ABG AND LYTES EG6+, Routine 04/19/2019 Results for POCT, B 12:58 PM LEAD SYSTEMS DEVELOPER this procedure are in the results section. ACT, POCT, B Routine 04/19/2019 Results for 12:48 PM LEAD SYSTEMS DEVELOPER this procedure are in the results section. GLUCOSE POCT, B Routine 04/19/2019 Results for 12:47 PM LEAD SYSTEMS DEVELOPER this procedure are in the results section. ACT, POCT, B Routine 04/19/2019 Results for 12:19 PM LEAD SYSTEMS DEVELOPER this procedure are in the results section. PROTHROMBIN TIME (PT), STAT 04/19/2019 Resul ts for P 12:16 PM LEAD SYSTEMS DEVELOPER this procedure are in the results section. ACT, POCT, B Routine 04/19/2019 Results for 11:55 AM LEAD SYSTEMS DEVELOPER this procedure are in the results section. ACT, POCT, B Routine 04/19/2019 Results for 11:27 AM LEAD SYSTEMS DEVELOPER this procedure are in the results section. ACT, POCT, B Routine 04/19/2019 Results for 11:05 AM LEAD SYSTEMS DEVELOPER this procedure are in the results section. PROTHROMBIN TIME (PT), STAT 04/19/2019 Resul ts for P 10:46 AM LEAD SYSTEMS DEVELOPER this procedure are in the results section. CBC WITH DIFFERENTIAL, STAT 04/19/2019 Resul ts for B 10:46 AM LEAD SYSTEMS DEVELOPER this procedure are in the results section. BASIC METABOLIC PANEL, STAT 04/19/2019 Resul ts for S/P 10:46 AM LEAD SYSTEMS DEVELOPER this procedure are in the results section. TYPE AND SCREEN STAT 04/19/2019 Results for 10:45 AM LEAD SYSTEMS DEVELOPER this procedure are in the results section. GLUCOSE POCT, B Routine 04/19/2019 Results for 10:44 AM LEAD SYSTEMS DEVELOPER this procedure are in the results section. ACT, POCT, B Routine 04/19/2019 Results for 10:41 AM LEAD SYSTEMS DEVELOPER this procedure are in the results section. ECHO - INTRAPROCEDURAL Routine 04/19/2019 8:52 Re sults for IMAGES ONLY AM LEAD SYSTEMS DEVELOPER this procedure are in the results section. INR, POCT, B Routine 04/19/2019 8:37 Results for AM LEAD SYSTEMS DEVELOPER this procedure are in the results section. GLUCOSE POCT, B Routine 04/19/2019 8:37 Results f or AM LEAD SYSTEMS DEVELOPER this procedure are in the results section. [...] layer. For the complete report, see the [employer] Documents. Narrative 08/19/2019 1:52 PM CDT For the complete report, see the [employer] Documents. Final Impressions 1. Echocardiogram performed per [...] ECHO PROCEDURES HOLTER MONITOR - IN CLINIC APPLICATIONS CONSULTANT (08/18/2019 10:48 AM CDT) [employer] [place] Method Time Signature SVE Max Per HOLTER [...] count HOLTER Hour SENTINEL Max Heart Rate [id number] HOLTER Time SENTINEL Specimen (Source) Anatomical Collection Method Collection Time Re ceived Time Location / / Volume Laterality 08/18/2019 10:49 AM CDT Narrative This result has an attachment that is no t available. Tucker Rutherford P.A.-C. CV CARDIAC SERVICES PROCEDUR ES Performing Organization Address City/State/ZIP Code Phon e Number HOLTER SENTINEL HOLTER SENTINEL NA ECG 12 Lead (08/18/2019 10:23 AM CDT) [employer] [place] Method Time Signature Ventricular 66 BPM MUSE Rate ECG/Min MD Interval 202 ms MUSE QRSD Interval 118 ms MUSE QT Interval 480 ms MUSE QTC Interval 503 ms MUSE P [place] 73 degrees MUSE R [place] 94 degrees MUSE T Wave [place] 47 degrees MUSE CODED DIAGNOSIS MUSE Semi-Urgent [...] thoracic spine. Cholecystectomy clips se en on hardware design engineer images. GUIDELINES FOR FOLLOW-UP of newly detect [...] thoracic spine. Cholecystectomy clips se en on hardware design engineer images. GUIDELINES FOR FOLLOW-UP of newly detect [...] PROCEDURES ECG 12 Lead (04/21/2019 10:47 AM LEAD SYSTEMS DEVELOPER) athologist Signature Ventricular Rate 73 BPM MUSE ECG/Min MD Interval 204 ms MUSE QRSD Interval 110 ms MUSE QT Interval 414 ms MUSE QTC Interval 456 ms MUSE P [place] 69 degrees MUSE R [place] 104 degrees MUSE T Wave [place] 27 degrees MUSE Specimen Anatomical Collection Method Collection Time Receive d Time (Source) Location / / Volume Laterality 04/21/2019 10:47 04/21/2019 AM LEAD SYSTEMS DEVELOPER 10:55 AM LEAD SYSTEMS DEVELOPER Impressions MUSE - 04/21/2019 10:55 AM LEAD SYSTEMS DEVELOPER Normal sinus rhythm with 1st degree A-V [...] MUSE MUSE NA Magnesium (04/21/2019 6:15 AM LEAD SYSTEMS DEVELOPER) athologist Signature Magnesium, S 2.0 1.7 - 2.3 04/21/2019 DTL mg/dL 7:39 AM LEAD SYSTEMS DEVELOPER Specimen Anatomical Collection Method Collection Time Receive d Time (Source) Location / / Volume Laterality Blood (Blood, 04/21/2019 6:15 AM 04/21/19 20 6:39 Venous) LEAD SYSTEMS DEVELOPER AM LEAD SYSTEMS DEVELOPER Tucker Rutherford P.A.-C. LAB BLOOD ADD-ON Performing Organization Address [facility] Phon e Number [facility] - [address] [place] [phone] [facility] [place] [address] Laboratories-[address] (ABNORMAL) Prothrombin Time (PT) (04/21/2019 6:15 AM LEAD SYSTEMS DEVELOPER) [facility] Method Time Signature Prothrombin 28.6 (H) 9.4 - 12.5 04/21/2019 DTL Time, P sec 6:54 AM LEAD SYSTEMS DEVELOPER INR 2.6 0.9 - 1.1 04/21/2019 DTL 6:54 AM LEAD SYSTEMS DEVELOPER Comment: ----ADDITIONAL INFORMATION---- Standard intensity warfarin therapeutic range: 2.0 to 3.0 ?? High intensity warfarin therapeutic rang e: 2.5 to 3.5 Specimen Anatomical Collection Method Collection Time Receive d Time (Source) Location / / Volume Laterality Blood (Blood, 04/21/2019 6:15 AM 04/21/19 20 6:39 Venous) LEAD SYSTEMS DEVELOPER AM LEAD SYSTEMS DEVELOPER Aria Houser APRN, C.N.P., M.S.N. LAB BLOOD ADD-ON Performing Organization Address City/[facility] Phon e Number [facility] - [address] [place] [phone] [facility] [place] [address] Laboratories-[address] (ABNORMAL) CBC with Differential, Blood (04/21/2019 6:15 AM LEAD SYSTEMS DEVELOPER) [facility] Method Time Signature Hemoglobin 12.1 11.6 - 04/21/2019 DTL 15.0 g/dL 6:45 AM LEAD SYSTEMS DEVELOPER Hematocrit 38.0 35.5 - 04/21/2019 DTL 44.9 % 6:45 AM LEAD SYSTEMS DEVELOPER Erythrocytes 4.03 3.92 - 04/21/2019 DTL 5.13 6:45 AM LEAD SYSTEMS DEVELOPER x10(12)/L MCV 94.3 78.2 - 04/21/2019 DTL 97.9 fL 6:45 AM LEAD SYSTEMS DEVELOPER RBC Distrib Width 12.3 12.2 - 04/21/2019 DTL 16.1 % 6:45 AM LEAD SYSTEMS DEVELOPER Platelet Count 296 157 - 371 04/21/2019 DTL x10(9)/L 6:45 AM LEAD SYSTEMS DEVELOPER Leukocytes 11.7 (H) 3.4 - 9.6 04/21/2019 DTL x10(9)/L 6:45 AM LEAD SYSTEMS DEVELOPER Neutrophils 8.57 (H) 1.56 - 04/21/2019 DTL 6.45 6:45 AM LEAD SYSTEMS DEVELOPER x10(9)/L Lymphocytes 2.03 0.95 - 04/21/2019 DTL 3.07 6:45 AM LEAD SYSTEMS DEVELOPER x10(9)/L Monocytes 0.91 (H) 0.26 - 04/21/2019 DTL 0.81 6:45 AM LEAD SYSTEMS DEVELOPER x10(9)/L Eosinophils 0.14 0.03 - 04/21/2019 DTL 0.48 6:45 AM LEAD SYSTEMS DEVELOPER x10(9)/L Basophils 0.08 0.01 - 04/21/2019 DTL 0.08 6:45 AM LEAD SYSTEMS DEVELOPER x10(9)/L Specimen Anatomical Collection Method Collection Time Receive d Time (Source) Location / / Volume Laterality Blood (Blood, 04/21/2019 6:15 AM 04/21/19 20 6:40 Venous) LEAD SYSTEMS DEVELOPER AM LEAD SYSTEMS DEVELOPER Marla Pham LAB BLOOD ADD-ON Performing Organization Address City/State/ZIP Code Phon e Number [facility] - [address] [place], [place] [address] [facility] [place] [address] [facility] [address] Creatinine with Estimated GFR (04/21/2019 6:15 AM LEAD SYSTEMS DEVELOPER) P athologist Signature Creatinine 0.85 0.59 - 04/21/2019 DTL 1.04 mg/dL 7:39 AM LEAD SYSTEMS DEVELOPER eGFR-Non 74 >=60 04/21/2019 DTL Black/ mL/min/BSA 7:39 AM LEAD SYSTEMS DEVELOPER [place] Comment: ----ADDITIONAL INFORMATION---- Estimated GFR calculated using the 2009 CKD_EPI creatinine equation. eGFR-Black/ 85 >=60 mL/min/BSA 2019 7:39 AM LEAD SYSTEMS DEVELOPER DTL Comment: ----ADDITIONAL INFORMATION---- Estimated GFR calculated using the 2009 CKD_EPI creatinine equation. Specimen Anatomical Collection Method Collection Time Receive d Time (Source) Location / / Volume Laterality Blood (Blood, 04/21/2019 6:15 AM 04/21/19 20 6:39 Venous) LEAD SYSTEMS DEVELOPER AM LEAD SYSTEMS DEVELOPER Marla RendonSEdilma LAB BLOOD ADD-ON Performing Organization Address City/State/ZIP Code Phon e Number [facility] - [address] BUN (Blood Urea Nitrogen) (04/21/2019 6:15 AM LEAD SYSTEMS DEVELOPER) P athologist Signature BUN (Blood Urea 13 6 - 21 04/21/2019 DTL Nitrogen), S mg/dL 7:39 AM LEAD SYSTEMS DEVELOPER Specimen Anatomical Collection Method Collection Time Receive d Time (Source) Location / / Volume Laterality Blood (Blood, 04/21/2019 6:15 AM 04/21/19 20 6:39 Venous) LEAD SYSTEMS DEVELOPER AM LEAD SYSTEMS DEVELOPER Marla RendonSEdilma LAB BLOOD ADD-ON Performing Organization Address City/State/ZIP Code Phon e Number [facility] - [address] Potassium (04/21/2019 6:15 AM LEAD SYSTEMS DEVELOPER) P athologist Signature Potassium, S 5.0 3.6 - 5.2 04/21/2019 DTL mmol/L 7:39 AM LEAD SYSTEMS DEVELOPER Specimen Anatomical Collection Method Collection Time Receive d Time (Source) Location / / Volume Laterality Blood (Blood, 04/21/2019 6:15 AM 04/21/19 20 6:39 Venous) LEAD SYSTEMS DEVELOPER AM LEAD SYSTEMS DEVELOPER Marla RendonSEdilma LAB BLOOD ADD-ON Performing Organization Address City/State/ZIP Code Phon e Number [facility] - [address] ECG 12 Lead (04/20/2019 10:44 PM LEAD SYSTEMS DEVELOPER) P athologist Signature Ventricular Rate 82 BPM MUSE ECG/Min MD Interval 198 ms MUSE QRSD Interval 106 ms MUSE QT Interval 374 ms MUSE QTC Interval 436 ms MUSE P [place] 67 degrees MUSE R [place] 89 degrees MUSE T Wave [place] -4 degrees MUSE Specimen Anatomical Collection Method Collection Time Receive d Time (Source) Location / / Volume Laterality 04/20/2019 10:44 04/21/2019 5:08 PM LEAD SYSTEMS DEVELOPER AM LEAD SYSTEMS DEVELOPER Impressions MUSE - 04/21/2019 5:08 AM LEAD SYSTEMS DEVELOPER Normal sinus rhythm ST and T wave [...] and Lateral 2 Views (04/20/2019 8:18 AM LEAD SYSTEMS DEVELOPER) Anatomical Region Laterality Modality Chest, Thoracic RST LOS, Thoracic ARZ LOS, Thoracic N/A Digital Radiography FLA LOS Specimen (Source) Anatomical Collection Method Collection Time Re ceived Time Location / / Volume Laterality 04/20/2019 8:19 AM LEAD SYSTEMS DEVELOPER Impressions 04/20/2019 8:37 AM LEAD SYSTEMS DEVELOPER Since 06/29/2018, decreased lung volumes. No focal consolidation, or pneumothorax. Possible tiny left pleu ral effusion with associated atelectasis. Mild pulmonary vascular con gestion. New cardiomegaly. Aortic calcification. Surgical clips right uppe r quadrant. Narrative 04/20/2019 8:37 AM LEAD SYSTEMS DEVELOPER EXAM: ??DX CHEST AP OR PA AND [...] DURES ECG 12 Lead (04/20/2019 6:42 AM LEAD SYSTEMS DEVELOPER) [facility] [employer] Own [employer] Method Time Signature Ventricular 75 BPM MUSE Rate ECG/Min MD Interval 186 ms MUSE QRSD Interval 102 ms MUSE QT Interval 388 ms MUSE QTC Interval 433 ms MUSE P [place] 72 degrees MUSE R [place] 97 degrees MUSE T Wave [place] -127 degrees MUSE CODED Atrial MUSE DIAGNOSIS fibrillation Specimen Anatomical Collection Method Collection Time Receive d Time (Source) Location / / Volume Laterality 04/20/2019 6:42 AM 0 8:54 LEAD SYSTEMS DEVELOPER AM LEAD SYSTEMS DEVELOPER Impressions MUSE - 04/20/2019 8:54 AM LEAD SYSTEMS DEVELOPER Normal sinus rhythm Rightward axis ST and [...] (ABNORMAL) Prothrombin Time (PT) (04/20/2019 6:34 AM LEAD SYSTEMS DEVELOPER) [facility] [employer] Method Time Signature Prothrombin 23.1 (H) 9.4 - 12.5 04/20/2019 DTL Time, P sec 7:26 AM LEAD SYSTEMS DEVELOPER INR 2.1 0.9 - 1.1 04/20/2019 DTL 7:26 AM LEAD SYSTEMS DEVELOPER Comment: ----ADDITIONAL INFORMATION---- Standard intensity warfarin therapeutic range: 2.0 to 3.0 ?? High intensity warfarin therapeutic rang e: 2.5 to 3.5 Specimen Anatomical Collection Method Collection Time Receive d Time (Source) Location / / Volume Laterality Blood (Blood, 04/20/2019 6:34 AM 04/20/19 20 7:04 Venous) LEAD SYSTEMS DEVELOPER AM LEAD SYSTEMS DEVELOPER Aria Houser APRN, C.N.P., M.S.N. LAB BLOOD ADD-ON Performing Organization Address City/State/ZIP Code Phon e Number [facility] - [address] [place], [place] [address] [facility] [place] [address] [facility] [address] [facility] (ABNORMAL) CBC with Differential, Blood (04/20/2019 6:34 AM LEAD SYSTEMS DEVELOPER) [facility] gist Method Time Signature Hemoglobin 12.7 11.6 - 04/20/2019 DTL 15.0 g/dL 7:17 AM LEAD SYSTEMS DEVELOPER Hematocrit 39.4 35.5 - 04/20/2019 DTL 44.9 % 7:17 AM LEAD SYSTEMS DEVELOPER Erythrocytes 4.14 3.92 - 04/20/2019 DTL 5.13 7:17 AM LEAD SYSTEMS DEVELOPER x10(12)/L MCV 95.2 78.2 - 04/20/2019 DTL 97.9 fL 7:17 AM LEAD SYSTEMS DEVELOPER RBC Distrib Width 12.4 12.2 - 04/20/2019 DTL 16.1 % 7:17 AM LEAD SYSTEMS DEVELOPER Platelet Count 362 157 - 371 04/20/2019 DTL x10(9)/L 7:17 AM LEAD SYSTEMS DEVELOPER Leukocytes 12.0 (H) 3.4 - 9.6 04/20/2019 DTL x10(9)/L 7:17 AM LEAD SYSTEMS DEVELOPER Neutrophils 8.06 (H) 1.56 - 04/20/2019 DTL 6.45 7:17 AM LEAD SYSTEMS DEVELOPER x10(9)/L Lymphocytes 2.74 0.95 - 04/20/2019 DTL 3.07 7:17 AM LEAD SYSTEMS DEVELOPER x10(9)/L Monocytes 0.93 (H) 0.26 - 04/20/2019 DTL 0.81 7:17 AM LEAD SYSTEMS DEVELOPER x10(9)/L Eosinophils 0.17 0.03 - 04/20/2019 DTL 0.48 7:17 AM LEAD SYSTEMS DEVELOPER x10(9)/L Basophils 0.10 (H) 0.01 - 04/20/2019 DTL 0.08 7:17 AM LEAD SYSTEMS DEVELOPER x10(9)/L Specimen Anatomical Collection Method Collection Time Receive d Time (Source) Location / / Volume Laterality Blood (Blood, 04/20/2019 6:34 AM 04/20/19 20 7:04 Venous) LEAD SYSTEMS DEVELOPER AM LEAD SYSTEMS DEVELOPER Marla Pham LAB BLOOD ADD-ON Performing Organization Address City/State/[facility] Phon e Number [facility] - [address] [place], [place] [address] [place] [address] Creatinine with Estimated GFR (04/20/2019 6:34 AM LEAD SYSTEMS DEVELOPER) athologist Signature Creatinine 0.89 0.59 - 04/20/2019 DTL 1.04 mg/dL 8:15 AM LEAD SYSTEMS DEVELOPER eGFR-Non 70 >=60 04/20/2019 DTL Black/ mL/min/BSA 8:15 AM LEAD SYSTEMS DEVELOPER [place] Comment: ----ADDITIONAL INFORMATION---- Estimated GFR calculated using the 2009 CKD_EPI creatinine equation. eGFR-Black/ 80 >=60 mL/min/BSA 2019 8:15 AM LEAD SYSTEMS DEVELOPER DTL Comment: ----ADDITIONAL INFORMATION---- Estimated GFR calculated using the 2009 CKD_EPI creatinine equation. Specimen Anatomical Collection Method Collection Time Receive d Time (Source) Location / / Volume Laterality Blood (Blood, 04/20/2019 6:34 AM 04/20/19 20 7:04 Venous) LEAD SYSTEMS DEVELOPER AM LEAD SYSTEMS DEVELOPER Marla RendonSEdilma LAB BLOOD ADD-ON Performing Organization Address City/State/[facility] Code Phon e Number [facility] - [address] [place], [place] [address] [facility] [place] [address] [facility] BUN (Blood Urea Nitrogen) (04/20/2019 6:34 AM LEAD SYSTEMS DEVELOPER) athologist Signature BUN (Blood Urea 13 6 - 21 04/20/2019 DTL Nitrogen), S mg/dL 8:15 AM LEAD SYSTEMS DEVELOPER Specimen Anatomical Collection Method Collection Time Receive d Time (Source) Location / / Volume Laterality Blood (Blood, 04/20/2019 6:34 AM 04/20/19 20 7:04 Venous) LEAD SYSTEMS DEVELOPER AM LEAD SYSTEMS DEVELOPER Marla RendonS. LAB BLOOD ADD-ON Performing Organization Address City/[facility]/ZIP Code Phon e Number [facility] - [address] Potassium (04/20/2019 6:34 AM LEAD SYSTEMS DEVELOPER) P athologist Signature Potassium, S 4.7 3.6 - 5.2 04/20/2019 DTL mmol/L 8:15 AM LEAD SYSTEMS DEVELOPER Specimen Anatomical Collection Method Collection Time Receive d Time (Source) Location / / Volume Laterality Blood (Blood, 04/20/2019 6:34 AM 04/20/19 7:04 Venous) LEAD SYSTEMS DEVELOPER AM LEAD SYSTEMS DEVELOPER Marla Lora.S. LAB BLOOD ADD-ON Performing Organization Address City/[facility]/ZIP Code Phon e Number [facility] - [address] Magnesium (04/20/2019 6:34 AM LEAD SYSTEMS DEVELOPER) P athologist Signature Magnesium, S 2.1 1.7 - 2.3 04/20/2019 DTL mg/dL 8:15 AM LEAD SYSTEMS DEVELOPER Specimen Anatomical Collection Method Collection Time Receive d Time (Source) Location / / Volume Laterality Blood (Blood, 04/20/2019 6:34 AM 04/20/19 20 7:04 Venous) LEAD SYSTEMS DEVELOPER AM LEAD SYSTEMS DEVELOPER Marla MarshallB.S. LAB BLOOD ADD-ON Performing Organization Address City/State/ZIP Code Phon e Number [facility] - [address] (ABNORMAL) Glucose, POCT (04/19/2019 4:12 PM LEAD SYSTEMS DEVELOPER) Analysis Performed At Patho logist Time Signature Glucose, POCT, 230 (H) 70 - 140 04/19/2019 PCLX B mg/dL 4:19 PM LEAD SYSTEMS DEVELOPER Last Intake 3-4 hours 04/19/2019 PCLX 4:19 PM LEAD SYSTEMS DEVELOPER Specimen Anatomical Collection Method Collection Time Receive d Time (Source) Location / / Volume Laterality Blood 04/19/2019 4:12 PM 0 4:19 LEAD SYSTEMS DEVELOPER PM LEAD SYSTEMS DEVELOPER Unknown Provider LAB POCT ORDERABLES-MANUAL Performing Organization Address City/State/ZIP Code Phon e Number POC [facility] [address] [place] [address] PCLX [facility] [place] [address] [place] [facility] [address] (ABNORMAL) Magnesium (04/19/2019 3:42 PM LEAD SYSTEMS DEVELOPER) P athologist Signature Magnesium, S 1.5 (L) 1.7 - 2.3 04/19/2019 DTL mg/dL 5:03 PM LEAD SYSTEMS DEVELOPER Specimen Anatomical Collection Method Collection Time Receive d Time (Source) Location / / Volume Laterality Blood (Blood, 04/19/2019 3:42 PM 04/19/19 20 4:28 Venous) LEAD SYSTEMS DEVELOPER PM LEAD SYSTEMS DEVELOPER Kadeem Soto APRNNMarcel., M.S.N. LAB BLOOD ADD-ON Performing Organization Address City/State/ZIP Code Phon e Number [facility] - [address] [place], [place] [address] [facility] [place] [place] [address] [facility] [address] Potassium (04/19/2019 3:42 PM LEAD SYSTEMS DEVELOPER) P athologist Signature Potassium, P 3.8 3.6 - 5.2 04/19/2019 STMA mmol/L 4:01 PM LEAD SYSTEMS DEVELOPER Specimen Anatomical Collection Method Collection Time Receive d Time (Source) Location / / Volume Laterality Blood (Blood, 04/19/2019 3:42 PM 04/19/19 20 3:49 Venous) LEAD SYSTEMS DEVELOPER PM LEAD SYSTEMS DEVELOPER Kadeem Soto APRNNEdilmaP., M.S.N. LAB BLOOD ADD-ON Performing Organization Address City/State/ZIP Code Phon e Number [facility] - [address] [place], [place] [address] [facility] [place] [place] [address] [facility] [address] (ABNORMAL) Prothrombin Time (PT) (04/19/2019 2:53 PM LEAD SYSTEMS DEVELOPER) Patholo gist Method Time Signature Prothrombin 29.8 (H) 9.4 - 12.5 04/19/2019 [email or web address] Time, P sec 3:14 PM LEAD SYSTEMS DEVELOPER INR 2.7 0.9 - 1.1 04/19/2019 [facility] [email or web address] 3:14 PM LEAD SYSTEMS DEVELOPER Comment: ----ADDITIONAL INFORMATION---- Standard intensity warfarin therapeutic range: 2.0 to 3.0 ?? High intensity warfarin therapeutic rang e: 2.5 to 3.5 Specimen Anatomical Collection Method Collection Time Receive d Time (Source) Location / / Volume Laterality Blood (Blood, 04/19/2019 2:53 PM 04/19/19 20 3:02 Venous) LEAD SYSTEMS DEVELOPER PM LEAD SYSTEMS DEVELOPER Tucker Rutherford P.A.-C. LAB BLOOD ADD-ON Performing Organization Address City/State/ZIP Code Phon e Number [facility] - [address] [place] [address] [facility] [address] [facility] [address] ABLATION PVI, CARTO, ULTRASOUND GUIDANCE FOR VASCULAR ACCESS, INTRACARDIAC ECHOCARDIOGRAM, ABLATION - WACA, ABLATION - ATRIAL FLUTTER - RIGHT (04/19/2019 2:26 PM LEAD SYSTEMS DEVELOPER) Anatomical Region Laterality Modality X-Ray Angiography Specimen (Source) Anatomical Collection Method Collection Time Re ceived Time Location / / Volume Laterality 04/19/2019 10:13 AM LEAD SYSTEMS DEVELOPER Narrative 04/20/2019 2:47 PM LEAD SYSTEMS DEVELOPER For the complete report, see the Order-L [...] ABG and Elian, POCT (04/19/2019 2:10 PM LEAD SYSTEMS DEVELOPER) P athologist Signature Sample Site, Artline 04/19/2019 PCLX POCT 2:16 PM LEAD SYSTEMS DEVELOPER Comment: ----ADDITIONAL INFORMATION---- Performed at the Point of Care pH, POCT 7.42 7.35 - 7.45 04/19/2019 2:16 PM LEAD SYSTEMS DEVELOPER PCLX Comment: ----ADDITIONAL INFORMATION---- Performed at the Point of Care pCO2, POCT 44 32 - 45 mm Hg 04/19/2019 2:16 PM LEAD SYSTEMS DEVELOPER PC LX Comment: ----ADDITIONAL INFORMATION---- Performed at the Point of Care pO2, POCT 455 (H) 83 - 108 mm Hg 04/19/2019 2:16 PM LEAD SYSTEMS DEVELOPER PC LX Comment: ----ADDITIONAL INFORMATION---- Performed at the Point of Care Base, POCT 4 (H) -2 - 3 mmol/L 04/19/2019 2:16 PM LEAD SYSTEMS DEVELOPER PC LX Comment: ----ADDITIONAL INFORMATION---- Performed at the Point of Care HCO3, POCT 29 (H) 22 - 26 mmol/L 04/19/2019 2:16 PM LEAD SYSTEMS DEVELOPER P CLX Comment: ----ADDITIONAL INFORMATION---- Performed at the Point of Care Sodium, POCT, B 137 135 - 145 mmol/L 04/19/2019 2:16 P M LEAD SYSTEMS DEVELOPER PCLX Comment: ----ADDITIONAL INFORMATION---- Performed at the Point of Care Potassium, POCT, B 3.0 (L) 3.6 - 5.2 mmol/L 04/19/2019 2:1 6 PM LEAD SYSTEMS DEVELOPER PCLX Comment: ----ADDITIONAL INFORMATION---- Performed at the Point of Care Hematocrit, POCT, B 36.0 35.5 - 44.9 % 04/19/2019 2:16 PM LEAD SYSTEMS DEVELOPER PCLX Comment: ----ADDITIONAL INFORMATION---- Performed at the Point of Care Specimen Anatomical Collection Method Collection Time Receive d Time (Source) Location / / Volume Laterality Blood 04/19/2019 2:10 PM 0 2:16 LEAD SYSTEMS DEVELOPER PM LEAD SYSTEMS DEVELOPER Unknown Provider LAB POCT ORDERABLES - DEVICE Performing Organization Address City/State/ZIP Code Phon e Number POC [facility] [address] [place] [address] [place] [address] [place] [facility] [address] (ABNORMAL) ACT (Activated Clotting Time), POCT (04/19/2019 2:03 PM LEAD SYSTEMS DEVELOPER) athologist Signature Activated 167 (H) 84 - 139 04/19/2019 PCSM Clotting Time, sec 2:16 PM LEAD SYSTEMS DEVELOPER POCT Specimen Anatomical Collection Method Collection Time Receive d Time (Source) Location / / Volume Laterality Blood 04/19/2019 2:03 PM 0 2:16 LEAD SYSTEMS DEVELOPER PM LEAD SYSTEMS DEVELOPER Unknown Provider LAB POCT ORDERABLES - DEVICE Performing Organization Address City/[facility] Phon e Number [facility]OC [facility] [address] [place], [place] [address] [place] [address] [place] [facility] [address] (ABNORMAL) Glucose, POCT (04/19/2019 2:02 PM LEAD SYSTEMS DEVELOPER) athologist Signature Glucose, POCT, 193 (H) 70 - 140 04/19/2019 PCLX B mg/dL 2:04 PM LEAD SYSTEMS DEVELOPER Specimen Anatomical Collection Method Collection Time Receive d Time (Source) Location / / Volume Laterality Blood 04/19/2019 2:02 PM 0 2:04 LEAD SYSTEMS DEVELOPER PM LEAD SYSTEMS DEVELOPER Unknown Provider LAB POCT ORDERABLES-MANUAL Performing Organization Address City/[facility] Phon e Number [facility]OC [facility] [address] [place] [address] [place] [address] [place] [facility] [address] (ABNORMAL) ACT (Activated Clotting Time), POCT (04/19/2019 1:19 PM LEAD SYSTEMS DEVELOPER) athologist Signature Activated 300 (H) 84 - 139 04/19/2019 PCSM Clotting Time, sec 1:30 PM LEAD SYSTEMS DEVELOPER POCT Specimen Anatomical Collection Method Collection Time Receive d Time (Source) Location / / Volume Laterality Blood 04/19/2019 1:19 PM 0 1:30 LEAD SYSTEMS DEVELOPER PM LEAD SYSTEMS DEVELOPER Unknown Provider LAB POCT ORDERABLES - DEVICE Performing Organization Address City/[facility] Phon e Number [facility]OC [facility] [address] [place], [place] [address] [place] [address] [place] [facility] [address] (ABNORMAL) ABG and Lytes, POCT (04/19/2019 12:58 PM LEAD SYSTEMS DEVELOPER) P athologist Signature Sample Site, Artline 04/19/2019 PCLX POCT 1:04 PM LEAD SYSTEMS DEVELOPER Comment: ----ADDITIONAL INFORMATION---- Performed at the Point of Care pH, POCT 7.41 7.35 - 7.45 04/19/2019 1:04 PM LEAD SYSTEMS DEVELOPER PCLX Comment: ----ADDITIONAL INFORMATION---- Performed at the Point of Care pCO2, POCT 43 32 - 45 mm Hg 04/19/2019 1:04 PM LEAD SYSTEMS DEVELOPER PC LX Comment: ----ADDITIONAL INFORMATION---- Performed at the Point of Care pO2, POCT 160 (H) 83 - 108 mm Hg 04/19/2019 1:04 PM LEAD SYSTEMS DEVELOPER PC LX Comment: ----ADDITIONAL INFORMATION---- Performed at the Point of Care Base, POCT 3 -2 - 3 mmol/L 04/19/2019 1:04 PM LEAD SYSTEMS DEVELOPER PC LX Comment: ----ADDITIONAL INFORMATION---- Performed at the Point of Care HCO3, POCT 27 (H) 22 - 26 mmol/L 04/19/2019 1:04 PM LEAD SYSTEMS DEVELOPER P CLX Comment: ----ADDITIONAL INFORMATION---- Performed at the Point of Care Sodium, POCT, B 137 135 - 145 mmol/L 04/19/2019 1:04 P M LEAD SYSTEMS DEVELOPER PCLX Comment: ----ADDITIONAL INFORMATION---- Performed at the Point of Care Potassium, POCT, B 3.3 (L) 3.6 - 5.2 mmol/L 04/19/2019 1:0 4 PM LEAD SYSTEMS DEVELOPER PCLX Comment: ----ADDITIONAL INFORMATION---- Performed at the Point of Care Hematocrit, POCT, B 39.0 35.5 - 44.9 % 04/19/2019 1:04 PM LEAD SYSTEMS DEVELOPER PCLX Comment: ----ADDITIONAL INFORMATION---- Performed at the Point of Care Specimen Anatomical Collection Method Collection Time Receive d Time (Source) Location / / Volume Laterality Blood 04/19/2019 12:58 04/19/2019 1:04 PM LEAD SYSTEMS DEVELOPER PM LEAD SYSTEMS DEVELOPER Unknown Provider LAB POCT ORDERABLES - DEVICE Performing Organization Address City/State/ZIP Code Phon e Number POC [facility] [address] [place] [address] [place] [address] [place] [facility] [address] (ABNORMAL) ACT (Activated Clotting Time), POCT (04/19/2019 12:48 PM LEAD SYSTEMS DEVELOPER) athologist Signature Activated 369 (H) 84 - 139 04/19/2019 PCSM Clotting Time, sec 1:04 PM LEAD SYSTEMS DEVELOPER POCT Specimen Anatomical Collection Method Collection Time Receive d Time (Source) Location / / Volume Laterality Blood 04/19/2019 12:48 04/19/2019 1:04 PM LEAD SYSTEMS DEVELOPER PM LEAD SYSTEMS DEVELOPER Unknown Provider LAB POCT ORDERABLES - DEVICE Performing Organization Address City/[facility]/ZIP [facility] Phon e Number POC [facility] [address] [place], [place] [address] [place] [address] [place] P[facility] [address] [place] [address] (ABNORMAL) Glucose, POCT (04/19/2019 12:47 PM LEAD SYSTEMS DEVELOPER) athologist Signature Glucose, POCT, 199 (H) 70 - 140 04/19/2019 PCLX B mg/dL 12:49 PM LEAD SYSTEMS DEVELOPER Site ARTLINE 04/19/2019 PCLX 12:49 PM LEAD SYSTEMS DEVELOPER Specimen Anatomical Collection Method Collection Time Receive d Time (Source) Location / / Volume Laterality Blood 04/19/2019 12:47 04/19/2019 PM LEAD SYSTEMS DEVELOPER 12:49 PM LEAD SYSTEMS DEVELOPER Unknown Provider LAB POCT ORDERABLES-MANUAL Performing Organization Address City/[facility]/ZIP [facility] Phon e Number POC [facility] [address] [place] [address] [place] [address] [place] POC 200 [facility] (ABNORMAL) ACT (Activated Clotting Time), POCT (04/19/2019 12:19 PM LEAD SYSTEMS DEVELOPER) athologist Signature Activated 341 (H) 84 - 139 04/19/2019 PCSM Clotting Time, sec 12:30 PM LEAD SYSTEMS DEVELOPER POCT Specimen Anatomical Collection Method Collection Time Receive d Time (Source) Location / / Volume Laterality Blood 04/19/2019 12:19 04/19/2019 PM LEAD SYSTEMS DEVELOPER 12:30 PM LEAD SYSTEMS DEVELOPER Unknown Provider LAB POCT ORDERABLES - DEVICE Performing Organization Address City/[facility] Phon e Number POC [facility] [address] [place], [place] [address] LABS [place], [place] [id number] [place] [address] (ABNORMAL) Prothrombin Time (PT) (04/19/2019 12:16 PM LEAD SYSTEMS DEVELOPER) [facility] gist Method Time Signature Prothrombin 95.8 (H) 9.4 - 12.5 04/19/2019 STMA Time, P sec 12:49 PM LEAD SYSTEMS DEVELOPER INR 8.3 (CH) 0.9 - 1.1 04/19/2019 STMA 12:49 PM LEAD SYSTEMS DEVELOPER Comment: ----ADDITIONAL INFORMATION---- Standard intensity warfarin therapeutic range: 2.0 to 3.0 ?? High intensity warfarin therapeutic rang e: 2.5 to 3.5 Specimen Anatomical Collection Method Collection Time Receive d Time (Source) Location / / Volume Laterality Blood (Blood, 04/19/2019 12:16 04/19/2019 Venous) PM LEAD SYSTEMS DEVELOPER 12:23 PM LEAD SYSTEMS DEVELOPER Ana Soto APRN.N.Howard., M.S.N. LAB BLOOD ADD-ON Performing Organization Address City/State/ZIP Code Phon e Number [facility] - [address] [place], [place] [address] (ABNORMAL) ACT (Activated Clotting Time), POCT (04/19/2019 11:55 AM LEAD SYSTEMS DEVELOPER) athologist Signature Activated 296 (H) 84 - 139 04/19/2019 PCSM Clotting Time, sec 12:06 PM LEAD SYSTEMS DEVELOPER POCT Specimen Anatomical Collection Method Collection Time Receive d Time (Source) Location / / Volume Laterality Blood 04/19/2019 11:55 04/19/2019 AM LEAD SYSTEMS DEVELOPER 12:06 PM LEAD SYSTEMS DEVELOPER Unknown Provider LAB POCT ORDERABLES - DEVICE Performing Organization Address City/[facility]/ZIP [facility] Phon e Number POC [facility] INPAT[facility] [address] [place], [place] [address] LABS [place], [place] [id number] [place] [address] (ABNORMAL) ACT (Activated Clotting Time), POCT (04/19/2019 11:27 AM LEAD SYSTEMS DEVELOPER) athologist Signature Activated 353 (H) 84 - 139 04/19/2019 PCSM Clotting Time, sec 11:38 AM LEAD SYSTEMS DEVELOPER POCT Specimen Anatomical Collection Method Collection Time Receive d Time (Source) Location / / Volume Laterality Blood 04/19/2019 11:27 04/19/2019 AM LEAD SYSTEMS DEVELOPER 11:39 AM LEAD SYSTEMS DEVELOPER Unknown Provider LAB POCT ORDERABLES - DEVICE Performing Organization Address City/State/[facility] Phon e Number POC [facility] IN[facility]IENT [address] [place], [place] [address] LABS PCSM [place], [place] [id number] [place] [address] (ABNORMAL) ACT (Activated Clotting Time), POCT (04/19/2019 11:05 AM LEAD SYSTEMS DEVELOPER) athologist Signature Activated 296 (H) 84 - 139 04/19/2019 PCSM Clotting Time, sec 11:17 AM LEAD SYSTEMS DEVELOPER POCT Specimen Anatomical Collection Method Collection Time Receive d Time (Source) Location / / Volume Laterality Blood 04/19/2019 11:05 04/19/2019 AM LEAD SYSTEMS DEVELOPER 11:17 AM LEAD SYSTEMS DEVELOPER Unknown Provider LAB POCT ORDERABLES - DEVICE Performing Organization Address City/[facility] Phon e Number POC [facility] [address] [place], [place] [address] LABS [place]CS[place], [place] [id number] [place] [address] (ABNORMAL) Basic Metabolic Panel (04/19/2019 10:46 AM LEAD SYSTEMS DEVELOPER) athologist Signature Potassium, P 3.6 3.6 - 5.2 04/19/2019 STMA mmol/L 11:18 AM LEAD SYSTEMS DEVELOPER Sodium, P 139 135 - 145 04/19/2019 STMA mmol/L 11:18 AM LEAD SYSTEMS DEVELOPER Chloride, P 100 98 - 107 04/19/2019 STMA mmol/L 11:18 AM LEAD SYSTEMS DEVELOPER Bicarbonate, P 25 22 - 29 04/19/2019 STMA mmol/L 11:18 AM LEAD SYSTEMS DEVELOPER Anion Gap, P 14 7 - 15 04/19/2019 STMA 11:18 AM LEAD SYSTEMS DEVELOPER BUN (Blood Urea 12 6 - 21 04/19/2019 STMA Nitrogen), P mg/dL 11:18 AM LEAD SYSTEMS DEVELOPER Creatinine 0.76 0.59 - 04/19/2019 STMA 1.04 mg/dL 11:18 AM LEAD SYSTEMS DEVELOPER eGFR-Black/Afric >90 >=60 04/19/2019 STMA an Citizen Of [place] mL/min/BSA 11:18 AM LEAD SYSTEMS DEVELOPER Comment: ----ADDITIONAL INFORMATION---- Estimated GFR calculated using the 2009 CKD_EPI creatinine equation. eGFR Non-Black/ 84 >=60 mL/min/BSA 04/19/2019 11:18 AM LEAD SYSTEMS DEVELOPER STMA Comment: ----ADDITIONAL INFORMATION---- Estimated GFR calculated using the 2009 CKD_EPI creatinine equation. Calcium, Total, P 8.8 8.8 - 10.2 mg/dL 04/19/2019 11:1 8 AM LEAD SYSTEMS DEVELOPER STMA Glucose, P 210 (H) 70 - 140 mg/dL 04/19/2019 11:18 AM LEAD SYSTEMS DEVELOPER STMA Specimen Anatomical Collection Method Collection Time Receive d Time (Source) Location / / Volume Laterality Blood (Blood, 04/19/2019 10:46 04/19/2019 Venous) AM LEAD SYSTEMS DEVELOPER 11:01 AM LEAD SYSTEMS DEVELOPER Renetta Greer APRN C.N.P., D.N.P. LAB BLOOD ADD-ON Performing Organization Address City/State/ZIP Code Phon e Number [facility] - [address] [place], [place] [address] [place] [address] [facility] [address] (ABNORMAL) CBC with Differential, Blood (04/19/2019 10:46 AM LEAD SYSTEMS DEVELOPER) [facility] Method Time Signature Hemoglobin 13.6 11.6 - 04/19/2019 STMA 15.0 g/dL 11:10 AM LEAD SYSTEMS DEVELOPER Hematocrit 40.1 35.5 - 04/19/2019 STMA 44.9 % 11:10 AM LEAD SYSTEMS DEVELOPER Erythrocytes 4.42 3.92 - 04/19/2019 STMA 5.13 11:10 AM LEAD SYSTEMS DEVELOPER x10(12)/L MCV 90.7 78.2 - 04/19/2019 STMA 97.9 fL 11:10 AM LEAD SYSTEMS DEVELOPER RBC Distrib Width 11.9 (L) 12.2 - 04/19/2019 STMA 16.1 % 11:10 AM LEAD SYSTEMS DEVELOPER Platelet Count 359 157 - 371 04/19/2019 STMA x10(9)/L 11:10 AM LEAD SYSTEMS DEVELOPER Leukocytes 9.0 3.4 - 9.6 04/19/2019 STMA x10(9)/L 11:10 AM LEAD SYSTEMS DEVELOPER Neutrophils 5.07 1.56 - 04/19/2019 STMA 6.45 11:10 AM LEAD SYSTEMS DEVELOPER x10(9)/L Lymphocytes 2.74 0.95 - 04/19/2019 STMA 3.07 11:10 AM LEAD SYSTEMS DEVELOPER x10(9)/L Monocytes 0.65 0.26 - 04/19/2019 STMA 0.81 11:10 AM LEAD SYSTEMS DEVELOPER x10(9)/L Eosinophils 0.40 0.03 - 04/19/2019 STMA 0.48 11:10 AM LEAD SYSTEMS DEVELOPER x10(9)/L Basophils 0.14 (H) 0.01 - 04/19/2019 STMA 0.08 11:10 AM LEAD SYSTEMS DEVELOPER x10(9)/L Specimen Anatomical Collection Method Collection Time Receive d Time (Source) Location / / Volume Laterality Blood (Blood, 04/19/2019 10:46 04/19/2019 Venous) AM LEAD SYSTEMS DEVELOPER 11:01 AM LEAD SYSTEMS DEVELOPER Ana Pickett APRN.N.P., D.N.P. LAB BLOOD ADD-ON Performing Organization Address [facility] Phon e Number [facility] - [address] [place] [address] (ABNORMAL) Prothrombin Time (PT) (04/19/2019 10:46 AM LEAD SYSTEMS DEVELOPER) [facility] Method Time Signature Prothrombin 58.0 (H) 9.4 - 12.5 04/19/2019 [facility] [[email or web address] Time, P sec 11:14 AM LEAD SYSTEMS DEVELOPER INR 5.1 (CH) 0.9 - 1.1 04/19/2019 [facility] [[email or web address] 11:14 AM LEAD SYSTEMS DEVELOPER Comment: ----ADDITIONAL INFORMATION---- Standard intensity warfarin therapeutic range: 2.0 to 3.0 ?? High intensity warfarin therapeutic rang e: 2.5 to 3.5 Specimen Anatomical Collection Method Collection Time Receive d Time (Source) Location / / Volume Laterality Blood (Blood, 04/19/2019 10:46 04/19/2019 Venous) AM LEAD SYSTEMS DEVELOPER 11:01 AM LEAD SYSTEMS DEVELOPER Renetta Greer APRN C.N.P., D.N.P. LAB BLOOD ADD-ON Performing Organization Address City/[facility] Phon e Number [facility] [address] [place] [address] Type and Screen (with reflex Antibody ID) (04/19/2019 10:45 AM LEAD SYSTEMS DEVELOPER) [facility] gist Method Time Signature ABORh A Pos Not 04/19/2019 STRM applicable 11:25 AM LEAD SYSTEMS DEVELOPER Antibody Negative Negative 04/19/2019 STRM Screen 11:40 AM LEAD SYSTEMS DEVELOPER Type & Screen 04/22/2019 04/19/2019 STRM Expiration 23:59 11:25 AM LEAD SYSTEMS DEVELOPER Testing [place] DEFAULT 04/19/2019 STRM Location 11:00 AM LEAD SYSTEMS DEVELOPER Specimen Anatomical Collection Method Collection Time Receive d Time (Source) Location / / Volume Laterality Blood (Arm, 04/19/2019 10:45 04/19/2019 Right) AM LEAD SYSTEMS DEVELOPER 11:00 AM LEAD SYSTEMS DEVELOPER Renetta Greer APRN, C.N.P., D.N.P. LAB BLOOD BANK T EST ORDERABLES Performing Organization Address City/State/ZIP Code Phon e Number [facility] - [address] [place], [place] [address] [facility] [place] [address] [facility] [address] (ABNORMAL) Glucose, POCT (04/19/2019 10:44 AM LEAD SYSTEMS DEVELOPER) athologist Signature Glucose, POCT, 206 (H) 70 - 140 04/19/2019 PCLX B mg/dL 10:55 AM LEAD SYSTEMS DEVELOPER Site ARTLINE 04/19/2019 PCLX 10:55 AM LEAD SYSTEMS DEVELOPER Specimen Anatomical Collection Method Collection Time Receive d Time (Source) Location / / Volume Laterality Blood 04/19/2019 10:44 04/19/2019 AM LEAD SYSTEMS DEVELOPER 10:55 AM LEAD SYSTEMS DEVELOPER Unknown Provider LAB POCT ORDERABLES-MANUAL Performing Organization Address City/State/ZIP Code Phon e Number POC [facility] [address] [place] [address] [place] [address] [place] P[place] [address] (ABNORMAL) ACT (Activated Clotting Time), POCT (04/19/2019 10:41 AM LEAD SYSTEMS DEVELOPER) athologist Signature Activated 341 (H) 84 - 139 04/19/2019 PCSM Clotting Time, sec 10:53 AM LEAD SYSTEMS DEVELOPER POCT Specimen Anatomical Collection Method Collection Time Receive d Time (Source) Location / / Volume Laterality Blood 04/19/2019 10:41 04/19/2019 AM LEAD SYSTEMS DEVELOPER 10:53 AM LEAD SYSTEMS DEVELOPER Unknown Provider LAB POCT ORDERABLES - DEVICE Performing Organization Address [facility] Phon e Number POC [facility] IN[facility]IENT [address] [place], [place] [address] [place] [address] [place] POC [address] [place] [address] Echo - Intraprocedural Images Only (04/19/2019 8:52 AM LEAD SYSTEMS DEVELOPER) Specimen (Source) Anatomical Location Collection Method / Collectio n Time Received Time / Laterality Volume Narrative CV EIMS - 04/21/2019 8:52 AM LEAD SYSTEMS DEVELOPER Echocardiographic images obtained during EP. See EP report for findings. Marla Pham CV ECHO PROCEDURES Performing Organization Address [facility] Phon e Number CV EIMS NA INR, POCT (04/19/2019 8:37 AM LEAD SYSTEMS DEVELOPER) P athologist Signature INR, POCT, B 2.4 04/19/2019 PCED 11:59 AM LEAD SYSTEMS DEVELOPER Comment: ----ADDITIONAL INFORMATION---- Standard intensity warfarin therapeutic range: 2.0 to 3.0 ?? High intensity warfarin therapeutic rang e: 2.5 to 3.5 Specimen Anatomical Collection Method Collection Time Receive d Time (Source) Location / / Volume Laterality 04/19/2019 8:37 AM 0 LEAD SYSTEMS DEVELOPER 11:59 AM LEAD SYSTEMS DEVELOPER Unknown Provider LAB POCT ORDERABLES - DEVICE Performing Organization Address [facility] Phon e Number POC [facility] [address] [place] [address] [place] [address] [place] POC 200 [facility] [place] [facility] (ABNORMAL) Glucose, POCT (04/19/2019 8:37 AM LEAD SYSTEMS DEVELOPER) P athologist Signature Glucose, POCT, 224 (H) 70 - 140 04/19/2019 PCLX B mg/dL 8:41 AM LEAD SYSTEMS DEVELOPER Specimen Anatomical Collection Method Collection Time Receive d Time (Source) Location / / Volume Laterality Blood 04/19/2019 8:37 AM 0 8:41 LEAD SYSTEMS DEVELOPER AM LEAD SYSTEMS DEVELOPER Unknown Provider LAB POCT ORDERABLES-MANUAL Performing Organization Address [facility] Phon e Number POC [facility] [address] [place] [address] PCLX [facility] [place] [address] [place] P[place] [address] documented in this [...] tablet 1,000 mg Given 04/21/2019 9:55 AM LEAD SYSTEMS DEVELOPER 1,000 mg (TYLENOL) 1,000 mg, oral, Every 6 hours PRN, mild pain or score 1-3 of 10, Starting on Fri04/19/19 at 1502, Postprocedure (CV) benzocaine-menthol 15-3.6 mg per lozenge 1 Given 04/21 9:55 AM LEAD SYSTEMS DEVELOPER 1 lozenge lozenge (CEPACOL) 1 lozenge, oral, Every 4 hours PRN, sore throat, Starting on Fri04/19/19 at 0934, Postprocedure (CV) Given 04/21/2019 4:53 AM LEAD SYSTEMS DEVELOPER 1 lozenge Given 04/20/2019 9:14 PM LEAD SYSTEMS DEVELOPER 1 lozenge clotrimazole-betamethasone 1-0.05 % Given 04/21/2019 8:36 AM LEAD SYSTEMS DEVELOPER 1 application cream 1 application (LOTRISONE) 1 application, topical, 2 times daily, First dose on Fri04/19/19 at 2100, Postprocedure (CV) Given 04/20/2019 8:20 PM LEAD SYSTEMS DEVELOPER 1 application Given 04/20/2019 8:49 AM LEAD SYSTEMS DEVELOPER 1 application docusate sodium capsule 100 mg (COLACE) Given 04/21/2019 10:29 AM LEAD SYSTEMS DEVELOPER 100 mg 100 mg, oral, 2 times daily PRN, constipation, Starting on Fri04/19/19 at 1502, Postprocedure (CV), Do NOT crush or chew. DULoxetine DR capsule 30 mg (CYMBALTA) Given 04/21/2019 8:38 AM LEAD SYSTEMS DEVELOPER 30 mg 30 mg, oral, 2 times daily, First dose on Fri04/19/19 at 2100, Postprocedure (CV), See tube feeding guidelines for tube feeding administration instructions. Given 04/20/2019 8:13 PM LEAD SYSTEMS DEVELOPER 30 mg Given 04/20/2019 8:46 AM LEAD SYSTEMS DEVELOPER 30 mg ferrous sulfate tablet 65 mg of iron Given 04/21/2019 8:37 AM LEAD SYSTEMS DEVELOPER 65 mg of iron 65 mg of iron, oral, Daily, First dose on Fri04/20/19 at 0900, Postprocedure (CV) Given 04/20/2019 8:45 AM LEAD SYSTEMS DEVELOPER 65 mg of iron flecainide tablet 100 mg (TAMBOCOR) Given 04/21/2019 8:38 AM LEAD SYSTEMS DEVELOPER 100 mg 100 mg, oral, 2 times daily, First dose on Fri04/19/19 at 2100 Given 04/20/2019 8:13 PM LEAD SYSTEMS DEVELOPER 100 mg Given 04/20/2019 8:45 AM LEAD SYSTEMS DEVELOPER 100 mg fluticasone furoate 100 mcg/actuation inhaler Given 8:36 AM LEAD SYSTEMS DEVELOPER 1 puff 1 puff (ARNUITY ELLIPTA) 1 puff, inhalation, Daily, First dose on Fri04/20/19 at 0900, Postprocedure (CV), Rinse mouth with water after use to reduce aftertaste and incidence of candidiasis. Do not swallow. Given 04/20/2019 8:48 AM LEAD SYSTEMS DEVELOPER 1 puff furosemide injection 20 mg (LASIX) Given 04/20/2019 9:13 AM LEAD SYSTEMS DEVELOPER 20 mg 20 mg, intravenous, Once, On Fri04/20/19 at 0700, For 1 dose, Adults: Doses less than 120 mg: IV push over 20 mg/minute. Doses 120 mg or greater: IVPB at 4 mg/minute. Peds/Neonates: Doses less than 120 mg over 0.5 mg/kg/minute. Doses 120 mg or greater: IVPB at 4 mg/minute. furosemide injection 20 mg (LASIX) Given 04/20/2019 1:25 PM LEAD SYSTEMS DEVELOPER 20 mg 20 mg, intravenous, Once, On Fri04/20/19 at 1330, For 1 dose, N/a furosemide injection 40 mg (LASIX) Given 04/21/2019 6:30 AM LEAD SYSTEMS DEVELOPER 40 mg 40 mg, intravenous, Once, On Fri04/21/19 at 0700, For 1 dose, N/a levothyroxine tablet 25 mcg (SYNTHROID, Given 04/21/2019 6:30 AM LEAD SYSTEMS DEVELOPER 25 mcg LEVOTHROID) 25 mcg, oral, Daily before breakfast, First dose on Fri04/20/19 at 0700, Postprocedure (CV) Given 04/20/2019 5:37 AM LEAD SYSTEMS DEVELOPER 25 mcg magnesium sulfate in water IVPB 2 g New Bag 04/19/2019 6:06 PM LEAD SYSTEMS DEVELOPER 2 g 25 mL/hr 2 g, intravenous, at 25 mL/hr, Administer over 120 Minutes, Once, On Fri04/19/19 at 1745, For 1 dose, Over 2 hours. premix bag metFORMIN tablet 500 mg (GLUCOPHAGE) Given 04/21/2019 8:38 AM LEAD SYSTEMS DEVELOPER 500 mg 500 mg, oral, 2 times daily with meals, First dose on Fri04/19/19 at 1700 Given 04/20/2019 5:20 PM LEAD SYSTEMS DEVELOPER 500 mg Given 04/20/2019 8:46 AM LEAD SYSTEMS DEVELOPER 500 mg methyl salicylate-menthol 30-10 % cream 1 application (ICY HOT) 1 application, topical, Every 2 hour PRN, muscle/joint pain, Starting on Fri04/19/19 at 1628, @@ Generic Substitution for BenGay @@ @ metoprolol tartrate tablet 50 mg (LOPRES SOR) Given 04/21/2019 8:37 AM LEAD SYSTEMS DEVELOPER 50 mg 50 mg, oral, 2 times daily, First dose on Fri04/19/19 at 2100 Given 04/20/2019 8:13 PM LEAD SYSTEMS DEVELOPER 50 mg Given 04/20/2019 8:45 AM LEAD SYSTEMS DEVELOPER [address] capsule 40 mg (PriLOSEC) Given 04/21/2019 6:30 AM LEAD SYSTEMS DEVELOPER 40 mg 40 mg, oral, Daily before breakfast, First dose on Fri04/21/19 at 0700, Postprocedure (CV), Do NOT crush or chew. Capsule may be opened and the contents taken without crushing or chewing. potassium chloride ER tablet 40 mEq Given 04/19/2019 6:02 PM LEAD SYSTEMS DEVELOPER 40 mEq (KLORCON/K-TAB) 40 mEq, oral, Once, [...] 8.6 mg (SENOKOT) Given 04/21/2019 10:29 AM LEAD SYSTEMS DEVELOPER 8.6 mg 8.6 mg, oral, As needed, constipation, Starting on Fri04/19/19 at 0930, Postprocedure (CV) simvastatin tablet 20 mg (ZOCOR) Given 04/20/2019 8:13 PM LEAD SYSTEMS DEVELOPER 20 mg 20 mg, oral, Daily at bedtime, First dose on Fri04/19/19 at 2100, Postprocedure (CV) Given 04/19/2019 8:12 PM LEAD SYSTEMS DEVELOPER 20 mg sodium chloride 0.9 % injection 10 mL 10 mL, intravenous, As needed, line care , Peripheral Intravenous Catheter and Rapid Infusion Catheter, Starting on Fri at 2109, Prior to blood sampling, post blood transfusion or post blood sampling. sodium chloride 0.9 % injection 3 mL Given 04/20/2019 9:15 PM LEAD SYSTEMS DEVELOPER 3 mL 3 mL, intravenous, As needed, line care, Peripheral Intravenous Catheter and Rapid Infusion Catheter, Starting on Fri04/20/19 at 2109, Prior to and following infusion and between multiple consecutive infusions. sodium chloride 0.9 % injection 3 mL Given 04/21/2019 8:38 AM LEAD SYSTEMS DEVELOPER 3 mL 3 mL, intravenous, Every 12 hours scheduled, First dose on Fri04/21/19 at 0900, Peripheral Intravenous Catheter and Rapid Infusion Catheter: When no infusion to maintain patency. SUMAtriptan tablet 50 mg (IMITREX) Given 04/21/2019 4:44 AM LEAD SYSTEMS DEVELOPER 50 mg 50 mg, oral, Every 2 hour PRN, migraine, Starting on Fri04/19/19 at 0930, For 2 doses, Postprocedure (CV), SUMAtriptan oral was interchanged for rizatriptan Given 04/20/2019 11:29 AM LEAD SYSTEMS DEVELOPER 50 mg topiramate tablet 25 mg (TOPAMAX) Given 04/21/2019 8:38 AM LEAD SYSTEMS DEVELOPER 25 mg 25 mg, oral, Daily, First dose on Fri04/20/19 at 0900, Postprocedure (CV) Given 04/20/2019 8:46 AM LEAD SYSTEMS DEVELOPER 25 mg warfarin management (COUMADIN) oral, Daily, [...] 6 mg (COUMADIN) Given 04/19/2019 6:02 PM LEAD SYSTEMS DEVELOPER 6 mg 6 mg, oral, Once, On Fri04/19/19 at 1700, For 1 dose warfarin tablet 6 mg (COUMADIN) Given 04/20/2019 5:20 PM LEAD SYSTEMS DEVELOPER 6 mg 6 mg, oral, Once, On Fri04/20/19 at 1700, For 1 dose documented in this encounter Active and Recently Administered Medications Times are shown in LEAD SYSTEMS DEVELOPER. Scheduled Medication Order 04/19/2019 04/20/2019 04/21/2019 clotrimazole-betamethasone [...] (Given - Provider: Talya Duffy RMary Ann)0945 ([facility] Hold - Provider: Transfer Provider, Automatic - Reason: Patient not available)0954 ([facility] Unhold - Provider: Transfer Provider, Automatic) 30 mg, oral, 2 times daily, First dose o n Fri04/19/19 at 2100, Postprocedure (CV), See tube feeding guidelines for tube feeding administration instructions. ferrous sulfate tablet 65 mg of iron 084 5 (Given - Provider: Jhony Diego RMary Ann) 0837 (Given - Provider: Talya tierney R.N.)0945 ([facility] Hold - Provider: Transfer Provider, Automatic - Reason: Patient not available)0954 ([facility] Unhold - Provider: Transfer Provider, Automatic) 65 mg of iron, oral, Daily, First dose o n Fri04/20/19 at 0900, Postprocedure (CV) flecainide tablet 100 mg (TAMBOCOR) 2011 (Given - Prov ider: Naren Michaels REdilmaNEdilma) 0845 (Given - Provider: Jhony smith REdilmaNEdilma)2012 (Given - Provider: Valerie Jaquez REdilmaNEdilma) 0838 (Given - Provider: Talya tierney R.N.)0945 ([facility] Hold - Provider: Transfer Provider, Automatic - Reason: Patient not available)0954 ([facility] Unhold - Provider: Transfer Provider, Automatic) 100 mg, oral, 2 times daily, First dose on Fri04/19/19 at 2100 fluticasone furoate 100 mcg/actuation inhaler 1 puff (ARNUIT Y ELLIPTA) 0848 (Given - Provider: Jhony Diego RMary Ann) 0836 (Given - Provider: Talya Duffy REdilmaNEdilma)0945 ([facility] Hold - Provider: Transfer Provider, Automatic - Reason: Patient not available)0954 ([facility] Unhold - Provider: Transfer Provider, [...] Provider, Automatic - Reason: Patient not available)0954 ([facility] Unhold - Provider: Transfer Provider, [...] Provider, Automatic - Reason: Patient not available)0954 ([facility] Unhold - Provider: Transfer Provider, Automatic) 500 mg, oral, 2 times daily with meals, First dose on Fri 0 at 1700 metoprolol tartrate tablet 50 mg (LOPRESSOR) 2011 (Giv en - Provider: Naren Michaels R.N.) 0845 (Given - Provider: Jhony smith REdilmaNEdilma)2012 (Given - Provider: Valerie Jaquez R.N.) 0837 (Given - Provider: Talya Duffy REdilmaNEdilma)0945 ([facility] Hold - Provider: Transfer Provider, Automatic - Reason: Patient not available)0954 ([facility] Unhold - Provider: Transfer Provider, Automatic) 50 mg, oral, 2 times daily, First dose on Fri04/19/[address] capsule 40 mg (PriLOSEC) 0630 (Given - Provider: Candy Deluna REdilmaNEdilma)0945 ([facility] Hold - Provider: Transfer Provider, Automatic - Reason: Patient not available)0954 ([facility] Unhold - Provider: Transfer Provider, [...] (Given - Provider: Valerie Jaquez R.N.) 0945 ([facility] Hold - Provider: Transfer Provider, Automatic - Reason: Patient not available)0954 ([facility] Unhold - Provider: Transfer Provider, Automatic) 20 mg, oral, Daily at bedtime, First dos e on Fri04/19/19 at 2100, Postprocedure (CV) sodium chloride 0.9 % injection 3 mL 0838 (Given - Provider: Talya Duffy REdilmaNEdilma)0945 ([facility] Hold - Provider: Transfer Provider, Automatic - Reason: Patient not available)0954 ([facility] Unhold - Provider: Transfer Provider, Automatic) 3 mL, intravenous, Every 12 hours schedu led, First dose on Fri04/21/19 at 0900, Peripheral Intravenous Catheter and Rapid Infusion Catheter: When no infusion to maintain patency. topiramate tablet 25 mg (TOPAMAX) 0846 ( Given - Provider: Jhony Diego R.N.) 0838 (Given - Provider: Talya tierney R.NEdilma)0945 ([facility] Hold - Provider: Transfer Provider, Automatic - Reason: Patient not available)0954 ([facility] Unhold - Provider: Transfer Provider, Automatic) 25 mg, oral, Daily, First dose on Fri04/20/19 at 0900, Postproce dure (CV) warfarin management (COUMADIN) 1700 (Due) 0 945 ([facility] Hold - Provider: Transfer Provider, Automatic - Reason: Patient not available)0954 ([facility] Unhold - Provider: Transfer Provider, [...] 04/21/2019 acetaminophen tablet 1,000 mg (TYLENOL) 0945 ([facility] Hold - Provider: Transfer Provider, Automatic - Reason: Patient not available)0954 ([facility] Unhold - Provider: Transfer Provider, Automatic)0955 (Given - Provider: Talya Duffy R.NEdilma) 1,000 mg, oral, Every 6 hours PRN, mild pain or score 1-3 of 10, Starting on Fri04/19/19 at 1502, Postprocedure (CV) albuterol 90 mcg/actuation inhaler 2 puff (PROVENTIL HFA,VENTOLI N HFA) 0945 ([facility] Hold - Provider: Transfer Provider, Automatic - Reason: Patient not available)0953 ([facility] Unhold - Provider: Transfer Provider, Automatic) 2 puff, inhalation, Every 4 hours PRN, s hortness of breath, Starting Fri04/19/19 at 0928, Postprocedure (CV) alum-mag hydroxide-simeth 200-200-20 mg/5 mL suspension 15 mL (M AALOX) 0945 ([facility] Hold - Provider: Transfer Provider, Automatic - Reason: Patient not available)0953 ([facility] Unhold - Provider: Transfer Provider, Automatic) 15 mL, oral, Every 6 hours PRN, indigest ion, Starting Fri04/19/19 at 0928, Postprocedure (CV) atropine injection 0.5 mg 0945 ( [facility] Hold - Provider: Transfer Provider, Automatic - Reason: Patient not available)0954 ([facility] Unhold - Provider: Transfer Provider, [...] 0453 (Given - Provider: Aria Green R.N.)0945 ([facility] Hold - Provider: Transfer Provider, Automatic - Reason: Patient not available)0954 ([facility] Unhold - Provider: Transfer Provider, Automatic)0955 (Given - Provider: Talya Duffy RMary Ann) 1 lozenge, oral, Every 4 hours PRN, sore throat, Starting on Fri04/19/19 at 0934, Postprocedure (CV) carboxymethylcellulose 0.5 % ophthalmic solution 1 drop (REFRESH PLUS) 0945 ([facility] Hold - Provider: Transfer Provider, Automatic - Reason: Patient not available)0954 ([facility] Unhold - Provider: Transfer Provider, Automatic) 1 drop, both eyes, 4 times daily PRN, dr campo eyes, Starting Fri04/19/19 at 0931, Postprocedure (CV) diazePAM tablet 2 mg (VALIUM) 09 45 ([facility] Hold - Provider: Transfer Provider, Automatic - Reason: Patient not available)0954 ([facility] Unhold - Provider: Transfer Provider, Automatic) 2 mg, oral, Every 2 hour PRN, anxiety, m uscle spasms, Starting Fri04/19/19 at 1502, For 2 doses, Postprocedure (CV), May repeat once if first dose ineffective. Until sheath removal. docusate sodium capsule 100 mg (COLACE) 0945 ([facility] Hold - Provider: Transfer Provider, Automatic - Reason: Patient not available)0954 ([facility] Unhold - Provider: Transfer Provider, Automatic)1038 (Not Given - Provider: Talya Duffy R.N. - Reason: Other) 100 mg, oral, 2 times daily PRN, constip ation, Starting 04/19/19 at 0934, Postprocedure (CV), Do NOT crush or chew. docusate sodium capsule 100 mg (COLACE) 0945 ([facility] Hold - Provider: Transfer Provider, Automatic - Reason: Patient not available)0954 ([facility] Unhold - Provider: Transfer Provider, Automatic)1029 (Given - Provider: Talya Duffy RMary Ann) 100 mg, oral, 2 times daily PRN, constip ation, Starting on Fri04/19/19 at 1502, Postprocedure (CV), Do NOT crush or chew. fentaNYL injection 25 mcg (SUBLIMAZE) 0945 ([facility] Hold - Provider: Transfer Provider, Automatic - Reason: Patient not available)0954 ([facility] Unhold - Provider: Transfer Provider, Automatic) 25 mcg, intravenous, Every 2 hour PRN, m oderate pain or score 4-6 of 10, Starting Fri04/19/19 at 1502, Postprocedure (CV), May repeat once in dosing interval, if patient unable to take oral analgesics or oral analgesics are ineffective fentaNYL injection 50 mcg (SUBLIMAZE) 0945 ([facility] Hold - Provider: Transfer Provider, Automatic - Reason: Patient not available)0954 ([facility] Unhold - Provider: Transfer Provider, [...] Intraprocedure (CV) melatonin tablet 3 mg 0945 ([facility] Hold - Provider: Transfer Provider, Automatic - Reason: Patient not available)0954 ([facility] Unhold - Provider: Transfer Provider, Automatic) 3 mg, oral, Bedtime PRN, sleep, Starting Fri04/19/19 at 0934, Postprocedure (CV) methyl salicylate-menthol 30-10 % cream 1 application (ICY HOT) 0945 ([facility] Hold - Provider: Transfer Provider, Automatic - Reason: Patient not available)0954 ([facility] Unhold - Provider: Transfer Provider, Automatic) 1 application, topical, Every 2 hour PRN , muscle/joint pain, Starting on Fri04/19/19 at 1628, @@ Generic Substitution for BenGay @@@ midazolam (PF) injection 1 mg (VERSED) 0945 ([facility] Hold - Provider: Transfer Provider, Automatic - Reason: Patient not available)0954 ([facility] Unhold - Provider: Transfer Provider, Automatic) 1 mg, intravenous, Every 2 hour PRN, anx iety, muscle spasms, Starting Fri04/19/19 at 1502, For 2 doses, Postprocedure (CV), for over 2 minutes. May repeat x1 dosing interval. Patient must be NPO for 2 hours prior to giving. Until sheath removal. naloxone injection 0.2 mg (NARCAN) 0945 ([facility] Hold - Provider: Transfer Provider, Automatic - Reason: Patient not available)0954 ([facility] Unhold - Provider: Transfer Provider, Automatic) 0.2 mg, intravenous, As needed, respirat ory depression, Starting Fri04/19/19 at 1502, Postprocedure (CV), For respiratory rate less than 8 breaths per minute or RASS score of -3, -4, -5. Apply oxygen to keep oxygen saturations greater than 90% and notify service. oxyCODONE IR tablet 5 mg (ROXICODONE) 0945 ([facility] Hold - Provider: Transfer Provider, Automatic - Reason: Patient not available)0954 ([facility] Unhold - Provider: Transfer Provider, Automatic) 5 mg, oral, Every 6 hours PRN, moderate pain or score 4-6 of 10, Starting Fri04/19/19 at 1502, Postprocedure (CV), If acetaminophen ineffective and patient able to take oral analgesics polyethylene glycol powder packet 17 g (MIRALAX) 0945 ([facility] Hold - Provider: Transfer Provider, Automatic - Reason: Patient not available)0954 ([facility] Unhold - Provider: Transfer Provider, Automatic) 17 g, oral, As needed, constipation, Sta rting Fri04/19/19 at 0929, For 237 days, Postprocedure (CV), Dissolve in 240 mLs (8 ounces) of water prior to giving. Avoid mixing with starch-based thickened liquids. prochlorperazine injection 5 mg (COMPAZINE) 0945 ([facility] Hold - Provider: Transfer Provider, Automatic - Reason: Patient not available)0954 ([facility] Unhold - Provider: Transfer Provider, Automatic) 5 mg, intravenous, Every 6 hours PRN, na usea, vomiting, Starting on Fri04/19/19 at 1744 promethazine injection 6.25 mg (PHENERGAN) 0945 ([facility] Hold - Provider: Transfer Provider, Automatic - Reason: Patient not available)0954 ([facility] Unhold - Provider: Transfer Provider, Automatic) 6.25 mg, intravenous, Every 6 hours PRN, nausea, vomiting, Starting on Fri04/19/19 at 1744 sennosides tablet 8.6 mg (SENOKOT) 0945 ([facility] Hold - Provider: Transfer Provider, Automatic - Reason: Patient not available)0954 ([facility] Unhold - Provider: Transfer Provider, Automatic)1029 (Given - Provider: Talya Duffy REdilmaNEdilma) 8.6 mg, oral, As needed, constipation, S tarting on Fri04/19/19 at 0930, Postprocedure (CV) sodium chloride 0.9 % injection 10 mL 0945 ([facility] Hold - Provider: Transfer Provider, Automatic - Reason: Patient not available)0954 ([facility] Unhold - Provider: Transfer Provider, Automatic) 10 mL, intravenous, As needed, line care , Peripheral Intravenous Catheter and Rapid Infusion Catheter, Starting on Fri04/20/19 at 2109, Prior to blood sampling, post blood transfusion or post blood sampling. sodium chloride 0.9 % injection 3 mL 211 5 (Given - Provider: Valerie Jaquez REdilmaNEdilma) 0945 ([facility] Hold - Provider: Transfer Prov ider, Automatic - Reason: Patient not available)0954 ([facility] Unhold - Provider: Transfer Provider, [...] documented as of this encounter Care Teams Pump Erector Relationship Specialty Start Date End Date Elsewhere, Pcp PCP - General Internal Medicine 07/27/18 documented as of this encounter
--- OUTSIDE RECORDS SUMMARY | 2022-01-03 11:00 | XMS_ITS | Encounter Summary ---
:1955 Author Organization [facility] Address [address] [place] [address] Care Team Providers Name Role Phone Elsewhere, Pcp Primary Care Provider Unavailable Reason for Referral MRI/CAT/PET Scan (Routine) - Closed Specialty Diagnoses / Procedures Referred By Contact Refer red To Contact Radiology Diagnoses Flutter Atrial (HCC) Atrial Fibrillation Paroxysmal (HCC) Tucker Rutherford P.A.-C. [facility] Procedures CT Cardiac Angiogram Pulmonary Veins with IV [address] [place] [phone] Referral ID Status Reason Start Date Expiration Date Visits Requ ested Visits Authorized [id number] Closed 04/21/2019 04/20/2020 1 1 Reason for Visit MRI/CAT/PET Scan (Routine) - Closed Specialty Diagnoses / Procedures Referred By Contact Refer red To Contact Radiology Diagnoses Flutter Atrial (HCC) Atrial Fibrillation Paroxysmal (HCC) Tucker Rutherford P.A.-C. [facility] Procedures CT Cardiac Angiogram Pulmonary Veins with IV [address] [place] [phone] Referral ID Status Reason Start Date Expiration Date Visits Requ ested Visits Authorized [id number] Closed 04/21/2019 04/20/2020 1 1 Encounter Details Date Type Department Care Team Description 08/18/2019 Hospital Encounter Department of MichellenTucker Flut ter Atrial (HCC); Radiology, Garett Torres Atrial Fibrillation Paroxysmal (HCC); Building, in [address] [place] [address] Atrial Fibrillation Paroxysmal (HCC) [facility] [phone] [facility] [phone] [place], [place] (Work) [phone] Social History Tobacco Use Types Packs/Day Years [...] do you attend alevism or Never 2018 hindu services? Do you [...] thoracic spine. Cholecystectomy clips se en on electric refrigerator servicer images. GUIDELINES FOR FOLLOW-UP of newly detect [...] thoracic spine. Cholecystectomy clips se en on electric refrigerator servicer images. GUIDELINES FOR FOLLOW-UP of newly detect [...] fo r recommended surveillance. Tucker Rutherford P.A.-C. [facility] CT PROCEDURES Creatinine, POCT (08/18/2019 9:20 AM [...] Number POC AMALIA PERFORMING [address] [place] [address] LABS PCDT [facility] [place] [address] [place] [address] Creatinine, POCT (08/18/2019 9:20 AM CDT) P athologist Signature eGFR-Black/Afri >90 >=60 08/18/2019 PCMO can Ecuadorean, mL/min/BSA 9:25 AM CDT POCT Comment: ----ADDITIONAL [...] City/State/ZIP Code Phon e Number POC RST MANDAEISM [address] [place] [address] OUTPATIENT LABS PCMO [facility] [place] [address] [place] [address] documented in this [...] documented as of this encounter Care Teams Cephalometric Tracer Relationship Specialty Start Date End Date Elsewhere, Pcp PCP - General Internal Medicine 07/27/18 documented as of this encounter
--- OUTSIDE RECORDS SUMMARY | 2022-01-03 11:00 | XMS_ITS | Encounter Summary ---
:1955 Author Organization [facility] Address [address] [place] [address] Care Team Providers Name Role Phone Elsewhere, Pcp Primary Care Provider Unavailable Reason for Referral Outpatient (Routine) - Closed Specialty Diagnoses / Procedures Referred By Contact Refer red To Contact Diagnoses Flutter Atrial (HCC) Atrial Fibrillation Paroxysmal (HCC) Tucker Rutherford P.A.-C. [facility] Procedures ECG Heart rhythm monitor (Holter) [address] [place] [address] Referral ID Status Reason Start Date Expiration Date Visits Requ ested Visits Authorized [id number] Closed 04/21/2019 04/20/2020 1 1 Reason for Visit Outpatient (Routine) - Closed Specialty Diagnoses / Procedures Referred By Contact Refer red To Contact Diagnoses Flutter Atrial (HCC) Atrial Fibrillation Paroxysmal (HCC) Tucker Rutherford P.A.-C. [facility] Procedures ECG Heart rhythm monitor (Holter) [address] [place] [address] Referral ID Status Reason Start Date Expiration Date Visits Requ ested Visits Authorized [id number] Closed 04/21/2019 04/20/2020 1 1 Encounter Details Date Type Department Care Team Description 08/18/2019 Hospital Department of Hirn, Tucker Flutter Atria l (HCC); Encounter Cardiovascular Brian Caballero Atrial Fibrillation Paroxysmal (HCC) Diseases in [place], [facility] [address] [place], [place] [address] [address] [place], [place] [phone] (Work) [phone] Social History Tobacco Use Types Packs/Day Years [...] do you attend sikhism or Never 2018 baptist services? Do you [...] Atr ial (HCC) Results for this CLINIC ZYGLO TECHNICIAN AM CDT Atrial Fibrillation proced ure are in Paroxysmal (HCC) the results section. documented in this encounter Results HOLTER MONITOR - IN CLINIC ZYGLO TECHNICIAN (08/18/2019 10:48 AM CDT) [facility] gist Method Time Signature SVE Max Per [...] count HOLTER Hour SENTINEL Max Heart Rate [id number] HOLTER Time SENTINEL Specimen (Source) Anatomical Collection [...] documented as of this encounter Care Teams Dining Car Conductor Relationship Specialty Start Date End Date Elsewhere, Pcp PCP - General Internal Medicine 07/27/18 documented as of this encounter
--- OUTSIDE RECORDS SUMMARY | 2022-01-03 11:00 | XMS_ITS | Encounter Summary ---
:1955 Author Organization [facility] Address [address] [place] [address] Care Team Providers Name Role Phone Elsewhere, Pcp Primary Care Provider Unavailable Reason for Referral Outpatient (Routine) - Closed Specialty Diagnoses / Procedures Referred By Contact Refer red To Contact Diagnoses Flutter Atrial (HCC) Atrial Fibrillation Paroxysmal (HCC) Tucker Rutherford P.A.-C. [facility] Procedures Echo Transthoracic (TTE) [address] [place] [address] Referral ID Status Reason Start Date Expiration Date Visits Requ ested Visits Authorized [id number] Closed 04/21/2019 04/20/2020 1 1 Reason for Visit Outpatient (Routine) - Closed Specialty Diagnoses / Procedures Referred By Contact Refer red To Contact Diagnoses Flutter Atrial (HCC) Atrial Fibrillation Paroxysmal (HCC) Tucker Rutherford P.A.-C. [facility] Procedures Echo Transthoracic (TTE) [address] [place] [address] Referral ID Status Reason Start Date Expiration Date Visits Requ ested Visits Authorized [id number] Closed 04/21/2019 04/20/2020 1 1 Encounter Details Date Type Department Care Team Description 08/19/2019 Hospital Department of [place]n, Tucker Flutter Atria l (HCC); Encounter Cardiovascular Brian Caballero Atrial Fibrillation Paroxysmal (HCC) Diseases in [place], [facility] [address] [place], [place] [address] [address] [place], [place] [phone] (Work) [phone] Social History Tobacco Use Types Packs/Day Years [...] do you attend alevism or Never 2018 congregation services? Do you belong to any clubs [...] layer. For the complete report, see the [facility] Documents. Narrative 08/19/2019 1:52 PM CDT For the complete report, see the [facility] Documents. Final Impressions 1. Echocardiogram performed per [...] 08/19/2019 For the complete report, see the [facility] Documents. Final Impressions 1. Echocardiogram performed per [...] documented as of this encounter Care Teams Sensory Scientist Relationship Specialty Start Date End Date Elsewhere, Pcp PCP - General Internal Medicine 07/27/18 documented as of this encounter
--- OUTSIDE RECORDS SUMMARY | 2022-01-03 11:00 | XMS_ITS | Encounter Summary ---
:1955 Author Organization [facility] Address [address] [place] [address] Care Team Providers Name Role Phone Elsewhere, Pcp Primary Care Provider Unavailable Reason for Visit Reason Onset Date Comments Follow-up 05/18/2019 Encounter Details Date Type Department Care Team Description 05/18/2019 Clinical Communication Outpatient Surgery and Jovani Ingram, Follow-up Procedural Admissions R.NEdilma, CCRN in [place], [facility] [address] [place], [place] [address] [place] [address] [place], [place] [phone] (Work) [phone] Social History Tobacco Use Types Packs/Day Years [...] or relatives? How often do you attend sikh or Never 2018 sabianist services? Do you belong to any clubs or No 02/26/2019 organizations such as sikh groups, unions, fraternal or athletic groups, or [...] documented as of this encounter Care Teams Bow String Maker Relationship Specialty Start Date End Date Elsewhere, Pcp PCP - General Internal Medicine 07/27/18 documented as of this encounter
--- OUTSIDE RECORDS SUMMARY | 2022-01-03 11:00 | XMS_ITS | Encounter Summary ---
:1955 Author Organization [facility] Address [address] [place] [address] Care Team Providers Name Role Phone Elsewhere, Pcp Primary Care Provider Unavailable Encounter Details Date Type Department Care Team Description 07/06/2019 Clinical Communication Department [facility] Cardiovascular Medicine Porfirio [facility] nasim Kellogg [address] [email or web address] [address] [place] [address] [place], [place] [phone] Social History Tobacco Use Types Packs/Day [...] do you attend spiritism or Never 2018 yazidi services? Do you [...] documented as of this encounter Care Teams Lead Installer Relationship Specialty Start Date End Date Elsewhere, Pcp PCP - General Internal Medicine 07/27/18 documented as of this encounter
--- OUTSIDE RECORDS SUMMARY | 2022-01-03 11:00 | XMS_ITS | Encounter Summary ---
:1955 Author Organization [facility] Address [address] [place] [address] Care Team Providers Name Role Phone Elsewhere, Pcp Primary Care Provider Unavailable Reason for Visit Outpatient (Routine) - Closed Specialty Diagnoses / Procedures Referred By Referred To Contact Contact Cardiovascular Diseases / Diagnoses Flutter Atrial (HCC) Atrial Fibrillation Paroxysmal (HCC) [facility] [address] [place] [phone] Referral ID Status Reason Start Date Expiration Date Visits Requ ested Visits Authorized [id number] Closed 04/21/2019 04/20/2020 1 1 Encounter Details Date Type Department Care Team Description 08/19/2019 Office Visit Department of Naren Arroyo M.D. Flutter Atrial (HCC); Cardiovascular Medicine Porfirio Villegas M.D. [address] [place] [phone] Atrial Fibrillation Paroxysmal (HCC) in [facility] [address] [place] [phone] Social History Tobacco Use Types [...] do you attend sikh or Never 2018 confucianism services? Do you [...] documented as of this encounter Care Teams Residential Construction Instructor Relationship Specialty Start Date End Date Elsewhere, Pcp PCP - General Internal Medicine 07/27/18 documented as of this encounter
--- OUTSIDE RECORDS SUMMARY | 2022-01-03 11:01 | XMS_ITS | Encounter Summary ---
:1955 Author Organization [facility] Address [address] [place] [address] Care Team Providers Name Role Phone Elsewhere, Pcp Primary Care Provider Unavailable Encounter Details Date Type Department Care Team Description 04/19/2019 Clinical Communication Outpatient Surgery and Alberto Mcgowan Procedural Admissions D, R.N. in [address] [place] [phone] [place] [phone] Social History Tobacco Use Types Packs/Day Years [...] do you attend jain or Never 2018 hoahaoism services? Do you [...] documented as of this encounter Care Teams Cfd Engineer Relationship Specialty Start Date End Date Elsewhere, Pcp PCP - General Internal Medicine 07/27/18 documented as of this encounter
--- OUTSIDE RECORDS SUMMARY | 2022-01-03 11:01 | XMS_ITS | Encounter Summary ---
:1955 Author Organization [facility] Address [address] [place] [address] Care Team Providers Name Role Phone Elsewhere, Pcp Primary Care Provider Unavailable Reason for Visit Appointment Request (Routine) - Closed Specialty Diagnoses / Procedures Referred By Contact Refer red To Contact Cardiovascular Disease Diagnoses Atrial Fibrillation Unspecified Referral ID Status Reason Start Date Expiration Date Visits Requ ested Visits Authorized [id number] Closed 03/09/2019 03/08/2020 1 Encounter Details Date Type Department Care Team Description 04/16/2019 Office Visit Department of Siontis, Atrial Fibrill ation Other Persistent (HCC) (Primary Dx); Cardiovascular Medicine Lenka Monroy ertensive Heart Disease With Heart Failure (HCC); in [facility] nasim Kellogg Diabetes Mellitus Type 2 Without Complic ation (HCC) 200 [facility] [address] [place] [address] [place], [place] [phone] Social History Tobacco Use Types Packs/Day Years [...] do you attend mormonism or Never 2018 buddhism services? Do you belong to any clubs or No 02/26/2019 organizations such as mormonism groups, unions, fraGamook or athletic groups, or school groups? How [...] Comments Blood Pressure 149/96 04/16/2019 3:55 PM CARE TRANSITION COORDINATOR Pulse 88 04/16/2019 3:55 PM CARE TRANSITION COORDINATOR Temperature - - Respiratory Rate - - [...] We last met in the clinic in [facility] and at that time we decided to [...] the above and agreement with the plan. TRANSITION COORDINATOR documented in this encounter Plan of [...] documented as of this encounter Care Teams Line Operator Relationship Specialty Start Date End Date Elsewhere, Pcp PCP - General Internal Medicine 07/27/18 documented as of this encounter
--- OUTSIDE RECORDS SUMMARY | 2022-01-03 11:01 | XMS_ITS | Encounter Summary ---
:1955 Author Organization [facility] Address [address] [place] [address] Care Team Providers Name Role Phone Elsewhere, Pcp Primary Care Provider Unavailable Encounter Details Date Type Department Care Team Description 03/09/2019 Clinical Communication Department of [facility], Cardiovascular Medicine [facility] nasim M.B.B.S. [address] [facility] [address] [place] [address] [place], [place] [phone] Social History Tobacco Use Types Packs/Day Years [...] do you attend methodist or Never 2018 muslim services? Do you belong to any clubs [...] [place] - 03/09/2019 10:53 AM CST baseline B AID documented in this encounter Plan of Treatment Not on filedocumented as of this encounter Visit Diagnoses Not on filedocumented in this encounter Additional Health Concerns Assessment Noted Time PHQ-9 Depression Total Score: 11 05/04/2013 4:05 PM CS T documented as of this encounter Care Teams Charge Entry Specialist Relationship Specialty Start Date End Date Elsewhere, Pcp PCP - General Internal Medicine 07/27/18 documented as of this encounter
--- OUTSIDE RECORDS SUMMARY | 2022-01-03 11:01 | XMS_ITS | Encounter Summary ---
:1955 Author Organization [facility] Address [address] [place] [address] Care Team Providers Name Role Phone Elsewhere, Pcp Primary Care Provider Unavailable Reason for Referral MRI/CAT/PET Scan (Routine) - Closed Specialty Diagnoses / Procedures Referred By Contact Refer red To Contact Radiology Diagnoses Atrial Fibrillation Unspecified [facility] Procedures CT Cardiac Angiogram Pulmonary Veins with IV M.D. [address] [place], [place] [id number] Referral ID Status Reason Start Date Expiration Date Visits Requ ested Visits Authorized [id number] Closed 03/04/2019 03/03/2020 1 1 NICAL SUPPORT 1 SOFTWARE ENGINEER Reason for Visit MRI/CAT/PET Scan (Routine) - Closed Specialty Diagnoses / Procedures Referred By Contact Refer red To Contact Radiology Diagnoses Atrial Fibrillation Unspecified [facility] Procedures CT Cardiac Angiogram Pulmonary Veins with IV M.D. [address] [place] [address] Referral ID Status Reason Start Date Expiration Date Visits Requ ested Visits Authorized [id number] Closed 03/04/2019 03/03/2020 1 1 Encounter Details Date Type Department Care Team Description 04/16/2019 Hospital Encounter Department of Siontis, Atrial F ibrillation Radiology, Garett Monroy, ([facility]) Building, in M.D. [place], [place] [address] [place] [phone] Social History Tobacco Use Types Packs/Day Years [...] or relatives? How often do you attend hindu or Never 2018 pentecostal services? Do you belong to any clubs or No 02/26/2019 organizations such as hindu groups, unions, fraternal or athletic groups, or [...] INR goal 2.5-3.5(atrial thrombus). Take 5mg Fri,,Fri,Fri,Sat warfarin (COUMADIN) 6 Take 6 mg by [...] context of radiology care priorto contrast/medication administration. NICAL SUPPORT 1 SOFTWARE ENGINEER documented in this encounter Plan of Treatment Scheduled Orders Name Type Priority Associated Diagnoses Order S chedule Creatinine, POCT Point of Care STAT STAT for 1 Occurrences Testing-Docked starting 03/25 Device until 0 documented as of this encounter Procedures Procedure Name Priority Date/Time Associated Comments Diagnosis CT CARDIAC RAD - Routine 04/16/2019 10:12 Atrial Fibrillation Res ults for this ANGIOGRAM (most inpatients AM TECHNICAL SUPPORT 1 SOFTWARE ENGINEER (HCC) procedure a re in PULMONARY VEINS and all the results WITH IV CONTRAST outpatients) section. CREATININE, POCT, Routine 04/16/2019 9:39 Results for this B AM TECHNICAL SUPPORT 1 SOFTWARE ENGINEER procedure are i n the results section. CREATININE, POCT, Routine 04/16/2019 9:39 Results for this B AM TECHNICAL SUPPORT 1 SOFTWARE ENGINEER procedure are i n the results section. documented in this encounter Results CT Cardiac Angiogram Pulmonary Veins with IV (04/16/2019 10:12 AM TECHNICAL SUPPORT 1 SOFTWARE ENGINEER) Anatomical Region Laterality Modality Cardiac, Cardiovascular RST LOS, N/A Compute d Tomography, Computed Thoracic ARZ LOS, Cardiovascular FLA Godwin ography LOS Specimen (Source) Anatomical Collection Method Collection Time Re ceived Time Location / / Volume Laterality 04/16/2019 10:05 AM TECHNICAL SUPPORT 1 SOFTWARE ENGINEER Impressions 04/16/2019 10:21 AM TECHNICAL SUPPORT 1 SOFTWARE ENGINEER 1. Normal variant pulmonary vein anatomy with [...] infectious or inflammatory. Narrative 04/16/2019 10:21 AM TECHNICAL SUPPORT 1 SOFTWARE ENGINEER EXAM: ??CT CARDIAC ANGIOGRAM PULMONARY VEINS WITH IV CONTRAST COMPARISON: ??[facility] CT chest witho ut intravenous contrast 02/05/2012. [...] T8, unchanged. C holecystectomy clips evident on cement despatch operator topogram. Procedure Note Nikunj Bolton M.D. - 04/16/2019Formattin g of this note might be different from the original. EXAM: CT CARDIAC ANGIOGRAM PULMONARY VEI NS WITH IV CONTRAST COMPARISON: [facility] CT chest without intravenous contrast 02/05/2012. FINDINGS: [...] T8, unchanged. C holecystectomy clips evident on cement despatch operator topogram. IMPRESSION: 1. Normal variant pulmonary vein [...] CT PROCEDURES Creatinine, POCT (04/16/2019 9:39 AM TECHNICAL SUPPORT 1 SOFTWARE ENGINEER) P athologist Signature Creatinine, 0.8 0.6 - 1.0 04/16/2019 PCDT POCT, B mg/dL 12:52 PM TECHNICAL SUPPORT 1 SOFTWARE ENGINEER Comment: ----ADDITIONAL INFORMATION---- Performed at the Point of Care Specimen Anatomical Collection Method Collection Time Receive d Time (Source) Location / / Volume Laterality Blood 04/16/2019 9:39 AM 0 TECHNICAL SUPPORT 1 SOFTWARE ENGINEER 12:53 PM TECHNICAL SUPPORT 1 SOFTWARE ENGINEER Unknown Provider LAB POCT ORDERABLES - DEVICE Performing Organization Address [facility]/ZIP Code Phon e Number POC GLEN BURNIE PERFORMING [address] [place] [address] LABS PCDT [facility] [place] [address] [place] [facility] [address] Creatinine, POCT (04/16/2019 9:39 AM TECHNICAL SUPPORT 1 SOFTWARE ENGINEER) P athologist Signature eGFR-Black/Afri >90 >=60 04/16/2019 PCMO can Mauritanian, mL/min/BSA 12:53 PM TECHNICAL SUPPORT 1 SOFTWARE ENGINEER POCT Comment: ----ADDITIONAL INFORMATION---- Estimated GFR calculated using the 2009 CKD_EPI creatinine equation. eGFR Non-Black/, 79 >=60 mL/min/BSA 04/16/2019 12:53 PM TECHNICAL SUPPORT 1 SOFTWARE ENGINEER PCMO POCT Comment: ----ADDITIONAL INFORMATION---- Estimated GFR calculated using the 2009 CKD_EPI creatinine equation. Specimen Anatomical Collection Method Collection Time Receive d Time (Source) Location / / Volume Laterality Blood 04/16/2019 9:39 AM 0 TECHNICAL SUPPORT 1 SOFTWARE ENGINEER 12:53 PM TECHNICAL SUPPORT 1 SOFTWARE ENGINEER Unknown Provider LAB POCT ORDERABLES - DEVICE Performing Organization Address [facility] Phon e Number POC [facility]ST JEWISH [address] [place] [address] OUTPATIENT LABS [place] [address] [place] [facility] [address] documented in this encounter Visit Diagnoses Diagnosis Atrial Fibrillation Unspecified documented in this encounter Administered Medications Inactive Administered Medications - up to 3 most recent administrations Medication Order MAR Action Action Date Dose Rate Site iohexol 350 mg iodine/mL solution Given 04/16/2019 9:51 AM TECHNICAL SUPPORT 1 SOFTWARE ENGINEER 1 40 mL 1-200 mL (OMNIPAQUE) 1-200 mL, intravenous, Once in imaging, contrast, Starting on Fri04/16/19 at 0920, For 1 dose, Imaging Protocol Orders, Dose per Radiant Medication Guidelines sodium chloride (PF) 0.9 % injection 1-1 00 mL Given 04/16/2019 9:51 AM TECHNICAL SUPPORT 1 SOFTWARE ENGINEER 10 mL 1-100 mL, intravenous, Once, On Fri04/16/19 at 0930, For 1 dose, Imaging Protocol Orders documented in this encounter Additional Health Concerns Assessment Noted Time PHQ-9 Depression Total Score: 05/04/2013 4:05 PM CS T documented as of this encounter Care Teams Donations Attendant Relationship Specialty Start Date End Date Elsewhere, Pcp PCP - General Internal Medicine 07/27/18 documented as of this encounter
--- OUTSIDE RECORDS SUMMARY | 2022-01-03 11:01 | XMS_ITS | Encounter Summary ---
:1955 Author Organization [facility] Address [address] [place] [address] Care Team Providers Name Role Phone Elsewhere, Pcp Primary Care Provider Unavailable Encounter Details Date Type Department Care Team Description 04/19/2019 Surgery Division of Cardiovascular Carole Yeager, ABLATION - PVI Diseases in [facility] [address] [facility] [address] [place] [phone] (Wo rk) Social History Tobacco Use Types [...] do you attend anglican or Never 2018 islam services? Do you [...] Comments Blood Pressure 147/103 04/19/2019 8:35 AM SQL SSRS DEVELOPER Pulse - - Temperature - - Respiratory Rate 16 04/19/2019 8:35 AM SQL SSRS DEVELOPER Oxygen Saturation 94% 04/19/2019 8:35 AM SQL SSRS DEVELOPER Inhaled Oxygen Concentration - - Weight 98.4 kg (216 lb 14.9 oz) 04/19/2019 8:35 AM SQL SSRS DEVELOPER Height 165.6 cm (5' 5.2) 04/19/2019 8:35 AM SQL SSRS DEVELOPER Body Mass Index 35.85 04/19/2019 8:35 AM SQL SSRS DEVELOPER documented in this encounter Discharge Summaries Tucker Rutherford P.A.-C. - 04/21/2019 10:04 AM CST Images from the original note were not included. DISCHARGE SUMMARY BRIEF OVERVIEW Discharge Provider: Marla Yeager M.B.B.S. Primary Care Providers: Elsewhere, Pcp (General) [address] [place] [id number] Primary Care Provider Phone Number: None Primary [...] replaced Atrial fibrillation Reviewed by Iris Sepulveda [facility]RSE Iris Metcalf was discharged from [facility] following an ablation performed by Dr. Yeager [...] will occur in approximately 3 months at [facility] in Heart Rhythm Services. Testing at that time will include a 24 hr Holter monitor, ECG, echocardiogram, and cardiac Ct. Patient was also instructed to follow up with Primary Care locally in the next 7-10 days for post hospital follow up. Discharge instructions were provided to the patient and caregiver(s). Juan J Rutherford P.A.-C. SSRS DEVELOPER documented in this encounter Discharge Instructions Discharge InstructionsHiTucker fish P.A.-C. - 04/21/2019 11:05 AM SQL SSRS DEVELOPER Hospital Problems as of 04/21/2019 1. [...] 4:00 p.m., contact the Electrophysiology Service at [phone]. For questions occurring after business hours, on weekends, nights, or holidays call [phone] and ask for Electrophysiology Meter Installer And Remover. General Follow-Up: You should follow up locally with your primary care provider in approximately 2 weeks for post hospitalization follow-up. Take a copy of the dismissal summary from [facility] to your provider. [facility] Follow-Up: A follow-up appointment will be scheduled for you in 3 months in the Heart Rhythm Center or Cardiovascular Exam Room. You will be contacted by [facility] to set up the follow up. Tests will include the following: electrocardiogram, 24-hour Holter monitor, transthoracic echocardiogram, and CT scan of heart. Our appointment coordinators will be contacting you. If you have not been notified about your appointment, please contact the electrophysiology cost coordinator at . Anticoagulation: Anticoagulation with Coumadin [...] avoid/skip your follow-up appointments, they are important! SSRS DEVELOPER AttachmentsThe following attachments cannot be sent through Care Everywhere. Acetaminophen (By mouth) (Nepalese)Flecainide (By mouth) (Nepalese)Omeprazole (By mouth) (Nepalese)documented in this encounter Medications at Time of [...] and Lissette Breen, PharmJohn., R.Ph. Contact Pager [phone] with any questions about this note. SSRS DEVELOPER Tucker Rutherford P.A.-C. - 04/20/2019 11:26 [...] have been answered. Juan J Rutherford P.A.-C. SSRS DEVELOPER Porfirio Villegas M.D. - 04/20/2019 8:20 AM [...] Clinical Cardiac Electrophysiology Fellow 04/20/2019 8:21 AM SQL SSRS DEVELOPER SSRS DEVELOPER Aria Houser APRN C.N.PEdilma, M.S.N. - 04/19/2019 [...] the hospital for monitoring while on flecainide. SSRS DEVELOPER Jayda Whitehead, Pharm.D., R.Ph. - 04/19/2019 [...] and Jayda Haddad Pharm.D., R.Ph. Contact Pager [phone] with any questions about this note. SSRS DEVELOPER documented in this encounter Procedure Notes [...] BLOOD LOSS Estimated Blood Loss: 1-75 ml SSRS DEVELOPER documented in this encounter Consult Notes Flores Romeo R.N. - 04/21/2019 9:05 AM CSTAssociated Order(s): IP CONSULT TO CARE MANAGEMENT Discharge Planning Assessment SUBJECTIVE Referral Data Referral Source: Nurse Referral Name: Valerie Jaquez RMary Ann Referral Reason: Discharge Planning Discharge Planning: Other (Comment)(supervisor intermediates care facility) Who was present during the interview?: Patient Prevention Rn Services Used: No Patient Information Primary Caregiver: Other (Comment)(staff at facility) Primary Nurse Name/Number: Bernie Diet/Texture: By mouth Legal Information Legal Decision Maker: Self Advance Directives: Power of Explosives Engineer for health care, Power of Explosives Engineer for finance Advance Directives Status: Not Activated Power of Explosives Engineer for Health Care Agent Name: Ramin Metcalf Power of Explosives Engineer for Health Agent Contact Info: [phone] Power of Explosives Engineer for Finance Agent Name: Ramin Metcalf Power of Explosives Engineer for Finance Agent Contact Info: [phone] Caregiver Information Caregiver Name: [facility] Caregiver Relationship: paid staff Caregiver Caregiver Address: [address] [place] [address] Services Requested Discharge Planning to Facility OBJECTIVE [...] Communication: Can write, Talks, Understands speaking, Understands Nepalese Environmental Supports Home Environment: Jail Care Facility Name: [facility] Anticipated Modifications to the Patient's Home: None [...] Residence: Other (Comment) Type of Residence Other: [facility] Care Facility Name: [facility] Support Systems: Children Assistance Recommended after Discharge: 24 hour supervision Home Care Services: No Anticipated Discharge Destination: [facility] Does the patient need discharge transport arranged?: Yes Has discharge transport been arranged?: Yes What day is the transport expected?: 04/21/19 What time is the transport expected?: 1130 Discharge Provided By: Chasity [place]: [phone] ASSESSMENT / PLAN ??Assessment: Met with the patient to discuss her prior level of care and home going needs. I reviewed my role of Claim Administrator. Patient reviewed her current hospitalization and appears to have understanding, insightand competence of her needs. Patient reviewed her home environment and support system; reviewing that her primary pulmonary care nurse - facility staff will be able to provide care to patient post discharge. Patient reports that she feels safe and supported to return [facility]. ?? Patient stated that she has two sons that are her support system. Patient hopes to transition to an assisted living center. Plan: Patient appears to have understanding, insight and competence into patient needs and is appropriately planning for discharge at this time. I recommended the following: none at this time 1. Patient plans to return to [facility] once medically stable for DC 2. Resources given:None 3. CM will continue to follow for any needs that arise. 4. Transportation home will be provided by [place] [phone]. 5. Reconnections needed [facility]. Patient to return to: Destination - Selection Complete Service Provider Request Status Selected Services Address Phone Number Fax Number [facility] Selected Transitional Care Unit [address] [facility] [address] [phone] Contact: Intake Patient has a MA bedhold. Facility prefers patient return by 1300. Transportation to be provided by [place] at 1130. Please contact Case Management if [...] arise. Signed by: Flores Romeo R.N. 04/21/2019 SSRS DEVELOPER documented in this encounter Nursing Notes Talya Duffy R.N. - 04/21/2019 10:55 AM CST Pt d/c to [facility]. Facility AVS, discharge summary and MAR report printed, discussed andhanded to pt to relay to SNF. Nurse to nurse report done. Education complete. Teach-back acquired. All questions answered. Transport arranged. Escort requested. SSRS DEVELOPER Mary Cortés R.REdilmaTEdilma, L.R.T. - 04/20/2019 12:42 AM CST Patient is a 64 y.o. female admitted on 04/19/2019 Alert Information: Plan of Care: Patient refused PAP therapy tonight. RT will continue to offer assistance. Principal Problem Atrial Fibrillation Paroxysmal (HCC) Oxygen Therapy $Delivery Method: Room air Arterial Line 04/19/19 Right Radial (Active) Placement Date/Time: 04/19/19 (c) 6175 Procedural Pause Completed: Yes Hand Hygiene Performed Prior to Insertion: Yes Site Prep: Chlorhexidine (Preferred) Sterile Barriers Used : Cap;Gloves;Gown;Large drape;Mask (Clinician);Mask (All others in ro... SSRS DEVELOPER Naren Michaels R.N. - 04/19/2019 9:35 PM CST Shift Goals: Clinical Goals for the Shift: pt remain safe Identify possible barriers to meeting goals/advancing plan of care: pt up with assist and walker End of Shift Summary: met SSRS DEVELOPER Naren Peng R.R.T., L.R.T. - 04/19/2019 5:29 PM CST Assist with CPAP SSRS DEVELOPER Robbie Emerson R.N. - 04/19/2019 8:38 AM CST Patient was admitted for ablation/ electrophysiology procedure. Reviewed HPI, preliminary testing and confirmed medications taken this morning. The last dose of Warfarin taken was 04/19/2019. Pain management strategies post-procedure were discussed. All questions were answered. Patient would like family member Ramin updated with procedural updates. The phone number to reach this family member is [phone]. SSRS DEVELOPER documented in this encounter Plan of Treatment Scheduled Referrals Name Type Priority Associated Diagnoses Order S [facility] Cardiovascular Disease Outpatient Routine Flutter A trial ([facility]) Expected: - Heart rhythm consult Referral Atrial Fibrillatio n 07/21/2019 (clinic) Paroxysmal ([facility]) (Approximat e), Expires: 04/21/2022 documented as of this encounter Procedures Procedure Name Priority Date/Time Associated Comments Diagnosis ECG Routine 04/21/2019 Results for 10:47 AM SQL SSRS DEVELOPER this procedure are in the results section. PROTHROMBIN TIME (PT), Routine 04/21/2019 6:15 Re sults for P AM SQL SSRS DEVELOPER this procedure are in the results section. CBC WITH DIFFERENTIAL, Routine 04/21/2019 6:15 Re sults for B AM SQL SSRS DEVELOPER this procedure are in the results section. BUN (BLOOD UREA Routine 04/21/2019 6:15 Results f or NITROGEN), S/P AM SQL SSRS DEVELOPER this procedur e are in the results section. POTASSIUM, S/P Routine 04/21/2019 6:15 Results fo r AM SQL SSRS DEVELOPER this procedure are in the results section. MAGNESIUM, S Routine 04/21/2019 6:15 Results for AM SQL SSRS DEVELOPER this procedure are in the results section. CREATININE WITH EGFR, Routine 04/21/2019 6:15 Res ults for S/P AM SQL SSRS DEVELOPER this procedure are in the results section. ECG Routine 04/20/2019 Results for 10:44 PM SQL SSRS DEVELOPER this procedure are in the results section. DX CHEST AP OR PA AND RAD - Timed 04/20/2019 8:18 Res ults for LATERAL 2 VIEWS (for specific AM SQL SSRS DEVELOPER this proced ure dates/times) are in the results section. ECG Routine 04/20/2019 6:42 Results for AM SQL SSRS DEVELOPER this procedure are in the results section. PROTHROMBIN TIME (PT), Routine 04/20/2019 6:34 Re sults for P AM SQL SSRS DEVELOPER this procedure are in the results section. CBC WITH DIFFERENTIAL, Routine 04/20/2019 6:34 Re sults for B AM SQL SSRS DEVELOPER this procedure are in the results section. BUN (BLOOD UREA Routine 04/20/2019 6:34 Results f or NITROGEN), S/P AM SQL SSRS DEVELOPER this procedur e are in the results section. POTASSIUM, S/P Routine 04/20/2019 6:34 Results fo r AM SQL SSRS DEVELOPER this procedure are in the results section. MAGNESIUM, S Routine 04/20/2019 6:34 Results for AM SQL SSRS DEVELOPER this procedure are in the results section. CREATININE WITH EGFR, Routine 04/20/2019 6:34 Res ults for S/P AM SQL SSRS DEVELOPER this procedure are in the results section. GLUCOSE POCT, B Routine 04/19/2019 4:12 Results f or PM SQL SSRS DEVELOPER this procedure are in the results section. POTASSIUM, S/P STAT 04/19/2019 3:42 Results fo r PM SQL SSRS DEVELOPER this procedure are in the results section. MAGNESIUM, S STAT 04/19/2019 3:42 Results for PM SQL SSRS DEVELOPER this procedure are in the results section. PROTHROMBIN TIME (PT), STAT 04/19/2019 2:53 Re sults for P PM SQL SSRS DEVELOPER this procedure are in the results section. ABLATION - ATRIAL Routine 04/19/2019 2:26 Atrial Results for FLUTTER - RIGHT PM SQL SSRS DEVELOPER Fibrillation (HCC) this p rocedure are in the results section. ABLATION - WACA Routine 04/19/2019 2:26 Atrial Results f or PM SQL SSRS DEVELOPER Fibrillation (HCC) this proc edure are in the results section. HEART RHYTHM PROCEDURE Routine 04/19/2019 2:26 Atrial Re sults for PM SQL SSRS DEVELOPER Fibrillation (HCC) this proc edure are in the results section. HEART RHYTHM PROCEDURE Routine 04/19/2019 2:26 Atrial Re sults for PM SQL SSRS DEVELOPER Fibrillation (HCC) this proc edure are in the results section. HEART RHYTHM PROCEDURE Routine 04/19/2019 2:26 Atrial Re sults for PM SQL SSRS DEVELOPER Fibrillation (HCC) this proc edure are in the results section. ABLATION PVI Routine 04/19/2019 2:26 Atrial Results for PM SQL SSRS DEVELOPER Fibrillation (HCC) this proc edure are in the results section. ABG AND LYTES EG6+, Routine 04/19/2019 2:10 Resul ts for POCT, B PM SQL SSRS DEVELOPER this procedure are in the results section. ACT, POCT, B Routine 04/19/2019 2:03 Results for PM SQL SSRS DEVELOPER this procedure are in the results section. GLUCOSE POCT, B Routine 04/19/2019 2:02 Results f or PM SQL SSRS DEVELOPER this procedure are in the results section. ACT, POCT, B Routine 04/19/2019 1:19 Results for PM SQL SSRS DEVELOPER this procedure are in the results section. ABG AND LYTES EG6+, Routine 04/19/2019 Results for POCT, B 12:58 PM SQL SSRS DEVELOPER this procedure are in the results section. ACT, POCT, B Routine 04/19/2019 Results for 12:48 PM SQL SSRS DEVELOPER this procedure are in the results section. GLUCOSE POCT, B Routine 04/19/2019 Results for 12:47 PM SQL SSRS DEVELOPER this procedure are in the results section. ACT, POCT, B Routine 04/19/2019 Results for 12:19 PM SQL SSRS DEVELOPER this procedure are in the results section. PROTHROMBIN TIME (PT), STAT 04/19/2019 Resul ts for P 12:16 PM SQL SSRS DEVELOPER this procedure are in the results section. ACT, POCT, B Routine 04/19/2019 Results for 11:55 AM SQL SSRS DEVELOPER this procedure are in the results section. ACT, POCT, B Routine 04/19/2019 Results for 11:27 AM SQL SSRS DEVELOPER this procedure are in the results section. ACT, POCT, B Routine 04/19/2019 Results for 11:05 AM SQL SSRS DEVELOPER this procedure are in the results section. PROTHROMBIN TIME (PT), STAT 04/19/2019 Resul ts for P 10:46 AM SQL SSRS DEVELOPER this procedure are in the results section. CBC WITH DIFFERENTIAL, STAT 04/19/2019 Resul ts for B 10:46 AM SQL SSRS DEVELOPER this procedure are in the results section. BASIC METABOLIC PANEL, STAT 04/19/2019 Resul ts for S/P 10:46 AM SQL SSRS DEVELOPER this procedure are in the results section. TYPE AND SCREEN STAT 04/19/2019 Results for 10:45 AM SQL SSRS DEVELOPER this procedure are in the results section. GLUCOSE POCT, B Routine 04/19/2019 Results for 10:44 AM SQL SSRS DEVELOPER this procedure are in the results section. ACT, POCT, B Routine 04/19/2019 Results for 10:41 AM SQL SSRS DEVELOPER this procedure are in the results section. ECHO - INTRAPROCEDURAL Routine 04/19/2019 8:52 Re sults for IMAGES ONLY AM SQL SSRS DEVELOPER this procedure are in the results section. INR, POCT, B Routine 04/19/2019 8:37 Results for AM SQL SSRS DEVELOPER this procedure are in the results section. GLUCOSE POCT, B Routine 04/19/2019 8:37 Results f or AM SQL SSRS DEVELOPER this procedure are in the results [...] CDT For the complete report, see the [employer] Documents. Final Impressions 1. Echocardiogram performed per [...] 08/19/2019 For the complete report, see the [employer] Documents. Final Impressions 1. Echocardiogram performed per [...] ECHO PROCEDURES HOLTER MONITOR - IN CLINIC CAMPUS AIDE (08/18/2019 10:48 AM CDT) [facility] gist Method Time Signature SVE Max Per [id number] HOLTER Hour Time SENTINEL SVE Max Per 2 count HOLTER Hour SENTINEL VE Total Beats 1 count HOLTER SENTINEL VE Percent 0 percent HOLTER Beats SENTINEL Mean Heart 66 bpm HOLTER Rate SENTINEL VT Runs 0 count HOLTER SENTINEL SVE Total 5 count HOLTER Beats SENTINEL Max Heart Rate 83 bpm HOLTER SENTINEL AF Count 0 count HOLTER SENTINEL Min Heart Rate [id number] HOLTER Time SENTINEL Recording Date [id number] HOLTER SENTINEL Tachycardia 0 count HOLTER Runs SENTINEL Holter Pauses 0 count HOLTER SENTINEL SVT Runs 0 count HOLTER SENTINEL Bradycardia 0 count HOLTER Runs SENTINEL Analysis Date 20,200,529 HOLTER SENTINEL Min Heart Rate 54 bpm HOLTER SENTINEL VE Max Per [id number] HOLTER Hour Time SENTINEL SVE Percent 0 percent HOLTER Beats SENTINEL VE Max Per 1 count HOLTER Hour SENTINEL Max Heart Rate [id number] HOLTER Time SENTINEL Specimen (Source) Anatomical Collection Method Collection Time Re ceived Time Location / / Volume Laterality 08/18/2019 10:49 AM CDT Narrative This result has an attachment that is no t available. Tucker Rutherford P.A.-C. CV CARDIAC SERVICES PROCEDUR ES Performing Organization Address [facility] Phon e Number HOLTER SENTINEL HOLTER SENTINEL NA ECG 12 Lead (08/18/2019 10:23 AM CDT) [facility] gist Method Time Signature Ventricular 66 BPM MUSE Rate ECG/Min UT Interval 202 ms MUSE QRSD Interval 118 ms MUSE QT Interval 480 ms MUSE QTC Interval 503 ms MUSE P Humphreys 73 degrees MUSE R Humphreys 94 degrees MUSE T Wave Humphreys 47 degrees MUSE CODED DIAGNOSIS MUSE Semi-Urgent [...] Rutherford P.A.-C. ECG ORDERABLES Performing Organization Address [facility] Phon e Number MUSE MUSE NA CT [...] thoracic spine. Cholecystectomy clips se en on stage electrician images. GUIDELINES FOR FOLLOW-UP of newly detect [...] thoracic spine. Cholecystectomy clips se en on stage electrician images. GUIDELINES FOR FOLLOW-UP of newly detect [...] PROCEDURES ECG 12 Lead (04/21/2019 10:47 AM SQL SSRS DEVELOPER) P athologist Signature Ventricular Rate 73 BPM MUSE ECG/Min UT Interval 204 ms MUSE QRSD Interval 110 ms MUSE QT Interval 414 ms MUSE QTC Interval 456 ms MUSE P Humphreys 69 degrees MUSE R Humphreys 104 degrees MUSE T Wave Humphreys 27 degrees MUSE Specimen Anatomical Collection Method Collection Time Receive d Time (Source) Location / / Volume Laterality 04/21/2019 10:47 04/21/2019 AM SQL SSRS DEVELOPER 10:55 AM SQL SSRS DEVELOPER Impressions MUSE - 04/21/2019 10:55 AM SQL SSRS DEVELOPER Normal sinus rhythm with 1st degree [...] MUSE MUSE NA Magnesium (04/21/2019 6:15 AM SQL SSRS DEVELOPER) P athologist Signature Magnesium, S 2.0 1.7 - 2.3 04/21/2019 DTL mg/dL 7:39 AM SQL SSRS DEVELOPER Specimen Anatomical Collection Method Collection Time Receive d Time (Source) Location / / Volume Laterality Blood (Blood, 04/21/2019 6:15 AM 04/21/19 20 6:39 Venous) SQL SSRS DEVELOPER AM SQL SSRS DEVELOPER Tucker Rutherford P.A.-C. LAB BLOOD ADD-ON Performing Organization Address City/State/ZIP Code Phon e Number [facility] - [address] [place], [place] [address] [facility] [place] [place] [address] Laboratories-[facility] [address] (ABNORMAL) Prothrombin Time (PT) (04/21/2019 6:15 AM SQL SSRS DEVELOPER) Patholo gist Method Time Signature Prothrombin 28.6 (H) 9.4 - 12.5 04/21/2019 DTL Time, P sec 6:54 AM SQL SSRS DEVELOPER INR 2.6 0.9 - 1.1 04/21/2019 DTL 6:54 AM SQL SSRS DEVELOPER Comment: ----ADDITIONAL INFORMATION---- Standard intensity warfarin therapeutic range: 2.0 to 3.0 ?? High intensity warfarin therapeutic rang e: 2.5 to 3.5 Specimen Anatomical Collection Method Collection Time Receive d Time (Source) Location / / Volume Laterality Blood (Blood, 04/21/2019 6:15 AM 04/21/19 20 6:39 Venous) SQL SSRS DEVELOPER AM SQL SSRS DEVELOPER Aria Houser APRN, C.N.P., M.S.N. LAB BLOOD ADD-ON Performing Organization Address City/State/ZIP Code Phon e Number [facility] - [address] [place], [place] [address] [facility] [place] [address] [facility] [address] (ABNORMAL) CBC with Differential, Blood (04/21/2019 6:15 AM SQL SSRS DEVELOPER) [facility] Method Time Signature Hemoglobin 12.1 11.6 - 04/21/2019 DTL 15.0 g/dL 6:45 AM SQL SSRS DEVELOPER Hematocrit 38.0 35.5 - 04/21/2019 DTL 44.9 % 6:45 AM SQL SSRS DEVELOPER Erythrocytes 4.03 3.92 - 04/21/2019 DTL 5.13 6:45 AM SQL SSRS DEVELOPER x10(12)/L MCV 94.3 78.2 - 04/21/2019 DTL 97.9 fL 6:45 AM SQL SSRS DEVELOPER RBC Distrib Width 12.3 12.2 - 04/21/2019 DTL 16.1 % 6:45 AM SQL SSRS DEVELOPER Platelet Count 296 157 - 371 04/21/2019 DTL x10(9)/L 6:45 AM SQL SSRS DEVELOPER Leukocytes 11.7 (H) 3.4 - 9.6 04/21/2019 DTL x10(9)/L 6:45 AM SQL SSRS DEVELOPER Neutrophils 8.57 (H) 1.56 - 04/21/2019 DTL 6.45 6:45 AM SQL SSRS DEVELOPER x10(9)/L Lymphocytes 2.03 0.95 - 04/21/2019 DTL 3.07 6:45 AM SQL SSRS DEVELOPER x10(9)/L Monocytes 0.91 (H) 0.26 - 04/21/2019 DTL 0.81 6:45 AM SQL SSRS DEVELOPER x10(9)/L Eosinophils 0.14 0.03 - 04/21/2019 DTL 0.48 6:45 AM SQL SSRS DEVELOPER x10(9)/L Basophils 0.08 0.01 - 04/21/2019 DTL 0.08 6:45 AM SQL SSRS DEVELOPER x10(9)/L Specimen Anatomical Collection Method Collection Time Receive d Time (Source) Location / / Volume Laterality Blood (Blood, 04/21/2019 6:15 AM 04/21/19 20 6:40 Venous) SQL SSRS DEVELOPER AM SQL SSRS DEVELOPER Marla Pham LAB BLOOD ADD-ON Performing Organization Address City/State/ZIP Code Phon e Number [facility] - [address] [place], [place] [address] [facility] [place] [place] [address] Laboratories[address] Creatinine with Estimated GFR (04/21/2019 6:15 AM SQL SSRS DEVELOPER) athologist Signature Creatinine 0.85 0.59 - 04/21/2019 DTL 1.04 mg/dL 7:39 AM SQL SSRS DEVELOPER eGFR-Non 74 >=60 04/21/2019 DTL Black/ mL/min/BSA 7:39 AM SQL SSRS DEVELOPER Norwegian Comment: ----ADDITIONAL INFORMATION---- Estimated GFR calculated using the 2009 CKD_EPI creatinine equation. eGFR-Black/ 85 >=60 mL/min/BSA 2019 7:39 AM SQL SSRS DEVELOPER DTL Comment: ----ADDITIONAL INFORMATION---- Estimated GFR calculated using the 2009 CKD_EPI creatinine equation. Specimen Anatomical Collection Method Collection Time Receive d Time (Source) Location / / Volume Laterality Blood (Blood, 04/21/2019 6:15 AM 04/21/19 20 6:39 Venous) SQL SSRS DEVELOPER AM SQL SSRS DEVELOPER Marla RendonSEdilma LAB BLOOD ADD-ON Performing Organization Address City/State/ZIP Code Phon e Number [facility] - [address] [place], [place] [address] [facility] [place] [address] [address] BUN (Blood Urea Nitrogen) (04/21/2019 6:15 AM SQL SSRS DEVELOPER) athologist Signature BUN (Blood Urea 13 6 - 21 04/21/2019 DTL Nitrogen), S mg/dL 7:39 AM SQL SSRS DEVELOPER Specimen Anatomical Collection Method Collection Time Receive d Time (Source) Location / / Volume Laterality Blood (Blood, 04/21/2019 6:15 AM 04/21/19 20 6:39 Venous) SQL SSRS DEVELOPER AM SQL SSRS DEVELOPER Marla RendonSEdilma LAB BLOOD ADD-ON Performing Organization Address City/State/ZIP Code Phon e Number [facility] - [address] [address] [address] Potassium (04/21/2019 6:15 AM SQL SSRS DEVELOPER) athologist Signature Potassium, S 5.0 3.6 - 5.2 04/21/2019 DT mmol/L 7:39 AM SQL SSRS DEVELOPER Specimen Anatomical Collection Method Collection Time Receive d Time (Source) Location / / Volume Laterality Blood (Blood, 04/21/2019 6:15 AM 04/21/19 20 6:39 Venous) SQL SSRS DEVELOPER AM SQL SSRS DEVELOPER Marla Pham LAB BLOOD ADD-ON Performing Organization Address City/State/ZIP Code Phon e Number [facility] - [id number] [place] [address] ECG 12 Lead (04/20/2019 10:44 PM SQL SSRS DEVELOPER) athologist Signature Ventricular Rate 82 BPM MUSE ECG/Min UT Interval 198 ms MUSE QRSD Interval 106 ms MUSE QT Interval 374 ms MUSE QTC Interval 436 ms MUSE P Humphreys 67 degrees MUSE R Humphreys 89 degrees MUSE T Wave Humphreys -4 degrees MUSE Specimen Anatomical Collection Method Collection Time Receive d Time (Source) Location / / Volume Laterality 04/20/2019 10:44 04/21/2019 5:08 PM SQL SSRS DEVELOPER AM SQL SSRS DEVELOPER Impressions MUSE - 04/21/2019 5:08 AM SQL SSRS DEVELOPER Normal sinus rhythm ST and T [...] and Lateral 2 Views (04/20/2019 8:18 AM SQL SSRS DEVELOPER) Anatomical Region Laterality Modality Chest, Thoracic RST LOS, Thoracic ARZ LOS, Thoracic N/A Digital Radiography FLA LOS Specimen (Source) Anatomical Collection Method Collection Time Re ceived Time Location / / Volume Laterality 04/20/2019 8:19 AM SQL SSRS DEVELOPER Impressions 04/20/2019 8:37 AM SQL SSRS DEVELOPER Since 06/29/2018, decreased lung volumes. No focal consolidation, or pneumothorax. Possible tiny left pleu ral effusion with associated atelectasis. Mild pulmonary vascular con gestion. New cardiomegaly. Aortic calcification. Surgical clips right uppe r quadrant. Narrative 04/20/2019 8:37 AM SQL SSRS DEVELOPER EXAM: ??DX CHEST AP OR PA [...] quadrant. Marla Pham IMG DIAGNOSTIC IMAGING PROCE [facility] ECG 12 Lead (04/20/2019 6:42 AM SQL SSRS DEVELOPER) [facility] Method Time Signature Ventricular 75 BPM MUSE Rate ECG/Min UT Interval 186 ms MUSE QRSD Interval 102 ms MUSE QT Interval 388 ms MUSE QTC Interval 433 ms MUSE P Humphreys 72 degrees MUSE R Humphreys 97 degrees MUSE T Wave Humphreys -127 degrees MUSE CODED Atrial MUSE DIAGNOSIS fibrillation Specimen Anatomical Collection Method Collection Time Receive d Time (Source) Location / / Volume Laterality 04/20/2019 6:42 AM 0 8:54 SQL SSRS DEVELOPER AM SQL SSRS DEVELOPER Impressions MUSE - 04/20/2019 8:54 AM SQL SSRS DEVELOPER Normal sinus rhythm Rightward axis ST [...] Marla Pham ECG ORDERABLES Performing Organization Address City/[facility]/ZIP Code Phon e Number ERIN KHAN NA (ABNORMAL) Prothrombin Time (PT) (04/20/2019 6:34 AM SQL SSRS DEVELOPER) [facility] [employer] Method Time Signature Prothrombin 23.1 (H) 9.4 - 12.5 04/20/2019 DTL Time, P sec 7:26 AM SQL SSRS DEVELOPER INR 2.1 0.9 - 1.1 04/20/2019 DTL 7:26 AM SQL SSRS DEVELOPER Comment: ----ADDITIONAL INFORMATION---- Standard intensity warfarin therapeutic range: 2.0 to 3.0 ?? High intensity warfarin therapeutic rang e: 2.5 to 3.5 Specimen Anatomical Collection Method Collection Time Receive d Time (Source) Location / / Volume Laterality Blood (Blood, 04/20/2019 6:34 AM 04/20/19 20 7:04 Venous) SQL SSRS DEVELOPER AM SQL SSRS DEVELOPER Aria Houser APRN C.NEdilmaP., M.S.N. LAB BLOOD ADD-ON Performing Organization Address City/State/ZIP Code Phon e Number [facility] - 200 [place], [place] [address] [facility] [place] [place] [address] Laboratories-[facility] 200 [facility] (ABNORMAL) CBC with Differential, Blood (04/20/2019 6:34 AM SQL SSRS DEVELOPER) [facility] [employer] Method Time Signature Hemoglobin 12.7 11.6 - 04/20/2019 DTL 15.0 g/dL 7:17 AM SQL SSRS DEVELOPER Hematocrit 39.4 35.5 - 04/20/2019 DTL 44.9 % 7:17 AM SQL SSRS DEVELOPER Erythrocytes 4.14 3.92 - 04/20/2019 DTL 5.13 7:17 AM SQL SSRS DEVELOPER x10(12)/L MCV 95.2 78.2 - 04/20/2019 DTL 97.9 fL 7:17 AM SQL SSRS DEVELOPER RBC Distrib Width 12.4 12.2 - 04/20/2019 DTL 16.1 % 7:17 AM SQL SSRS DEVELOPER Platelet Count 362 157 - 371 04/20/2019 DTL x10(9)/L 7:17 AM SQL SSRS DEVELOPER Leukocytes 12.0 (H) 3.4 - 9.6 04/20/2019 DTL x10(9)/L 7:17 AM SQL SSRS DEVELOPER Neutrophils 8.06 (H) 1.56 - 04/20/2019 DTL 6.45 7:17 AM SQL SSRS DEVELOPER x10(9)/L Lymphocytes 2.74 0.95 - 04/20/2019 DTL 3.07 7:17 AM SQL SSRS DEVELOPER x10(9)/L Monocytes 0.93 (H) 0.26 - 04/20/2019 DTL 0.81 7:17 AM SQL SSRS DEVELOPER x10(9)/L Eosinophils 0.17 0.03 - 04/20/2019 DTL 0.48 7:17 AM SQL SSRS DEVELOPER x10(9)/L Basophils 0.10 (H) 0.01 - 04/20/2019 DTL 0.08 7:17 AM SQL SSRS DEVELOPER x10(9)/L Specimen Anatomical Collection Method Collection Time Receive d Time (Source) Location / / Volume Laterality Blood (Blood, 04/20/2019 6:34 AM 04/20/19 20 7:04 Venous) SQL SSRS DEVELOPER AM SQL SSRS DEVELOPER Marla Pham LAB BLOOD ADD-ON Performing Organization Address City/State/ZIP Code Phon e Number [facility] - [address] [place], [place] [address] [facility] [place] [place] [address] Laboratories-[facility] 200 [facility] Creatinine with Estimated GFR (04/20/2019 6:34 AM SQL SSRS DEVELOPER) P athologist Signature Creatinine 0.89 0.59 - 04/20/2019 DTL 1.04 mg/dL 8:15 AM SQL SSRS DEVELOPER eGFR-Non 70 >=60 04/20/2019 DTL Black/ mL/min/BSA 8:15 AM SQL SSRS DEVELOPER Norwegian Comment: ----ADDITIONAL INFORMATION---- Estimated GFR calculated using the 2009 CKD_EPI creatinine equation. eGFR-Black/ 80 >=60 mL/min/BSA 2019 8:15 AM SQL SSRS DEVELOPER DTL Comment: ----ADDITIONAL INFORMATION---- Estimated GFR calculated using the 2009 CKD_EPI creatinine equation. Specimen Anatomical Collection Method Collection Time Receive d Time (Source) Location / / Volume Laterality Blood (Blood, 04/20/2019 6:34 AM 04/20/19 20 7:04 Venous) SQL SSRS DEVELOPER AM SQL SSRS DEVELOPER Marla RendonSEdilma LAB BLOOD ADD-ON Performing Organization Address City/State/ZIP Code Phon e Number [facility] - [address] [place], [place] [address] [facility] [place], [place] [id number] [place] [address] BUN (Blood Urea Nitrogen) (04/20/2019 6:34 AM SQL SSRS DEVELOPER) P athologist Signature BUN (Blood Urea 13 6 - 21 04/20/2019 DTL Nitrogen), S mg/dL 8:15 AM SQL SSRS DEVELOPER Specimen Anatomical Collection Method Collection Time Receive d Time (Source) Location / / Volume Laterality Blood (Blood, 04/20/2019 6:34 AM 04/20/19 20 7:04 Venous) SQL SSRS DEVELOPER AM SQL SSRS DEVELOPER Marla RendonSEdilma LAB BLOOD ADD-ON Performing Organization Address City/State/ZIP Code Phon e Number [facility] - [address] [place], [place] [address] [facility] [place] [place] [address] [facility] [address] Potassium (04/20/2019 6:34 AM SQL SSRS DEVELOPER) P athologist Signature Potassium, S 4.7 3.6 - 5.2 04/20/2019 DTL mmol/L 8:15 AM SQL SSRS DEVELOPER Specimen Anatomical Collection Method Collection Time Receive d Time (Source) Location / / Volume Laterality Blood (Blood, 04/20/2019 6:34 AM 04/20/19 20 7:04 Venous) SQL SSRS DEVELOPER AM SQL SSRS DEVELOPER Marla RendonSEdilma LAB BLOOD ADD-ON Performing Organization Address City/State/ZIP Code Phon e Number [facility] - [address] [place], [place] [address] [facility] [place] [place] [address] [facility] [address] Magnesium (04/20/2019 6:34 AM SQL SSRS DEVELOPER) P athologist Signature Magnesium, S 2.1 1.7 - 2.3 04/20/2019 DTL mg/dL 8:15 AM SQL SSRS DEVELOPER Specimen Anatomical Collection Method Collection Time Receive d Time (Source) Location / / Volume Laterality Blood (Blood, 04/20/2019 6:34 AM 04/20/19 20 7:04 Venous) SQL SSRS DEVELOPER AM SQL SSRS DEVELOPER Marla Pham LAB BLOOD ADD-ON Performing Organization Address City/[facility]/ZIP [facility] Phon e Number [facility] - [address] [place] [address] [address] (ABNORMAL) Glucose, POCT (04/19/2019 4:12 PM SQL SSRS DEVELOPER) Analysis Performed At Patho logist Time Signature Glucose, POCT, 230 (H) 70 - 140 04/19/2019 PCLX B mg/dL 4:19 PM SQL SSRS DEVELOPER Last Intake 3-4 hours 04/19/2019 PCLX 4:19 PM SQL SSRS DEVELOPER Specimen Anatomical Collection Method Collection Time Receive d Time (Source) Location / / Volume Laterality Blood 04/19/2019 4:12 PM 0 4:19 SQL SSRS DEVELOPER PM SQL SSRS DEVELOPER Unknown Provider LAB POCT ORDERABLES-MANUAL Performing Organization Address City/[facility] Phon e Number POC [facility] [address] [place] [address] [place] [address] [facility] [address] (ABNORMAL) Magnesium (04/19/2019 3:42 PM SQL SSRS DEVELOPER) P athologist Signature Magnesium, S 1.5 (L) 1.7 - 2.3 04/19/2019 DTL mg/dL 5:03 PM SQL SSRS DEVELOPER Specimen Anatomical Collection Method Collection Time Receive d Time (Source) Location / / Volume Laterality Blood (Blood, 04/19/2019 3:42 PM 04/19/19 20 4:28 Venous) SQL SSRS DEVELOPER PM SQL SSRS DEVELOPER Kadeem Soto APRNNEdilmaP., M.S.N. LAB BLOOD ADD-ON Performing Organization Address City/State/ZIP Code Phon e Number [facility] - [address] [place] [address] [place] [id number] [facility] [address] Potassium (04/19/2019 3:42 PM SQL SSRS DEVELOPER) P athologist Signature Potassium, P 3.8 3.6 - 5.2 04/19/2019 STMA mmol/L 4:01 PM SQL SSRS DEVELOPER Specimen Anatomical Collection Method Collection Time Receive d Time (Source) Location / / Volume Laterality Blood (Blood, 04/19/2019 3:42 PM 04/19/19 3:49 Venous) SQL SSRS DEVELOPER PM SQL SSRS DEVELOPER Aria Houser APRN, C.N.P., M.S.N. LAB BLOOD ADD-ON Performing Organization Address [facility] Phon e Number [facility] - [address] [address] Laboratories-[place] [address] [address] [facility] (ABNORMAL) Prothrombin Time (PT) (04/19/2019 2:53 PM SQL SSRS DEVELOPER) Patholo gist Method Time Signature Prothrombin 29.8 (H) 9.4 - 12.5 04/19/2019 STMA Time, P sec 3:14 PM SQL SSRS DEVELOPER INR 2.7 0.9 - 1.1 04/19/2019 STMA 3:14 PM SQL SSRS DEVELOPER Comment: ----ADDITIONAL INFORMATION---- Standard intensity warfarin therapeutic range: 2.0 to 3.0 ?? High intensity warfarin therapeutic rang e: 2.5 to 3.5 Specimen Anatomical Collection Method Collection Time Receive d Time (Source) Location / / Volume Laterality Blood (Blood, 04/19/2019 2:53 PM 04/19/19 3:02 Venous) SQL SSRS DEVELOPER PM SQL SSRS DEVELOPER Tucker Rutherford P.A.-C. LAB BLOOD ADD-ON Performing Organization Address City/[facility] Phon e Number [facility] - [address] [place], [place] [address] [place] [id number] ABLATION PVI, CARTO, ULTRASOUND GUIDANCE FOR VASCULAR ACCESS, INTRACARDIAC ECHOCARDIOGRAM, ABLATION - WACA, ABLATION - ATRIAL FLUTTER - RIGHT (04/19/2019 2:26 PM SQL SSRS DEVELOPER) Anatomical Region Laterality Modality X-Ray Angiography Specimen (Source) Anatomical Collection Method Collection Time Re ceived Time Location / / Volume Laterality 04/19/2019 10:13 AM SQL SSRS DEVELOPER Narrative 04/20/2019 2:47 PM SQL SSRS DEVELOPER For the complete report, see the [employer] Documents. PROCEDURE TYPES 1. ??ABLATION - PVI [...] For the complete report, see the [employer] Documents. Procedure Note Marla Yeager M.B.B.S. - 04/20/2019F ormatting of this note might be different from the original. For the complete report, see the [employer] Documents. PROCEDURE TYPES 1. ABLATION - PVI [...] ABG and Vondates, POCT (04/19/2019 2:10 PM SQL SSRS DEVELOPER) P athologist Signature Sample Site, [facility] 04/19/2019 PCLX POCT 2:16 PM SQL SSRS DEVELOPER Comment: ----ADDITIONAL INFORMATION---- Performed at the Point of Care pH, POCT 7.42 7.35 - 7.45 04/19/2019 2:16 PM SQL SSRS DEVELOPER PCLX Comment: ----ADDITIONAL INFORMATION---- Performed at the Point of Care pCO2, POCT 44 32 - 45 mm Hg 04/19/2019 2:16 PM SQL SSRS DEVELOPER PC LX Comment: ----ADDITIONAL INFORMATION---- Performed at the Point of Care pO2, POCT 455 (H) 83 - 108 mm Hg 04/19/2019 2:16 PM SQL SSRS DEVELOPER PC LX Comment: ----ADDITIONAL INFORMATION---- Performed at the Point of Care Base, POCT 4 (H) -2 - 3 mmol/L 04/19/2019 2:16 PM SQL SSRS DEVELOPER PC LX Comment: ----ADDITIONAL INFORMATION---- Performed at the Point of Care HCO3, POCT 29 (H) 22 - 26 mmol/L 04/19/2019 2:16 PM SQL SSRS DEVELOPER P CLX Comment: ----ADDITIONAL INFORMATION---- Performed at the Point of Care Sodium, POCT, B 137 135 - 145 mmol/L 04/19/2019 2:16 P M SQL SSRS DEVELOPER PCLX Comment: ----ADDITIONAL INFORMATION---- Performed at the Point of Care Potassium, POCT, B 3.0 (L) 3.6 - 5.2 mmol/L 04/19/2019 2:1 6 PM SQL SSRS DEVELOPER PCLX Comment: ----ADDITIONAL INFORMATION---- Performed at the Point of Care Hematocrit, POCT, B 36.0 35.5 - 44.9 % 04/19/2019 2:16 PM SQL SSRS DEVELOPER PCLX Comment: ----ADDITIONAL INFORMATION---- Performed at the Point of Care Specimen Anatomical Collection Method Collection Time Receive d Time (Source) Location / / Volume Laterality Blood 04/19/2019 2:10 PM 0 2:16 SQL SSRS DEVELOPER PM SQL SSRS DEVELOPER Unknown Provider LAB POCT ORDERABLES - DEVICE Performing Organization Address [facility] Phon e Number POC [facility] [address] [place] [address] [place] [address] [place] [facility] [address] (ABNORMAL) ACT (Activated Clotting Time), POCT (04/19/2019 2:03 PM SQL SSRS DEVELOPER) athologist Signature Activated 167 (H) 84 - 139 04/19/2019 PCSM Clotting Time, sec 2:16 PM SQL SSRS DEVELOPER POCT Specimen Anatomical Collection Method Collection Time Receive d Time (Source) Location / / Volume Laterality Blood 04/19/2019 2:03 PM 0 2:16 SQL SSRS DEVELOPER PM SQL SSRS DEVELOPER Unknown Provider LAB POCT ORDERABLES - DEVICE Performing Organization Address [facility] Phon e Number POC [facility]ST [facility] IN[facility] [address] [place], [place] [address] [place] [address] [place] [facility] [address] (ABNORMAL) Glucose, POCT (04/19/2019 2:02 PM SQL SSRS DEVELOPER) athologist Signature Glucose, POCT, 193 (H) 70 - 140 04/19/2019 PCLX B mg/dL 2:04 PM SQL SSRS DEVELOPER Specimen Anatomical Collection Method Collection Time Receive d Time (Source) Location / / Volume Laterality Blood 04/19/2019 2:02 PM 0 2:04 SQL SSRS DEVELOPER PM SQL SSRS DEVELOPER Unknown Provider LAB POCT ORDERABLES-MANUAL Performing Organization Address [facility] Phon e Number POC [facility] [address] [place] [address] [place] [address] [place] POC [address] [facility] (ABNORMAL) ACT (Activated Clotting Time), POCT (04/19/2019 1:19 PM SQL SSRS DEVELOPER) athologist Signature Activated 300 (H) 84 - 139 04/19/2019 PCSM Clotting Time, sec 1:30 PM SQL SSRS DEVELOPER POCT Specimen Anatomical Collection Method Collection Time Receive d Time (Source) Location / / Volume Laterality Blood 04/19/2019 1:19 PM 0 1:30 SQL SSRS DEVELOPER PM SQL SSRS DEVELOPER Unknown Provider LAB POCT ORDERABLES - DEVICE Performing Organization Address [facility] Phon e Number POC [facility] IN[facility] [address] [place], [place] [address] [place] [address] [place] [facility] [address] [place] [address] (ABNORMAL) ABG and Lytes, POCT (04/19/2019 12:58 PM SQL SSRS DEVELOPER) athologist Signature Sample Site, [place] 04/19/2019 PCLX POCT 1:04 PM SQL SSRS DEVELOPER Comment: ----ADDITIONAL INFORMATION---- Performed at the Point of Care pH, POCT 7.41 7.35 - 7.45 04/19/2019 1:04 PM SQL SSRS DEVELOPER PCLX Comment: ----ADDITIONAL INFORMATION---- Performed at the Point of Care pCO2, POCT 43 32 - 45 mm Hg 04/19/2019 1:04 PM SQL SSRS DEVELOPER PC LX Comment: ----ADDITIONAL INFORMATION---- Performed at the Point of Care pO2, POCT 160 (H) 83 - 108 mm Hg 04/19/2019 1:04 PM SQL SSRS DEVELOPER PC LX Comment: ----ADDITIONAL INFORMATION---- Performed at the Point of Care Base, POCT 3 -2 - 3 mmol/L 04/19/2019 1:04 PM SQL SSRS DEVELOPER PC LX Comment: ----ADDITIONAL INFORMATION---- Performed at the Point of Care HCO3, POCT 27 (H) 22 - 26 mmol/L 04/19/2019 1:04 PM SQL SSRS DEVELOPER P CLX Comment: ----ADDITIONAL INFORMATION---- Performed at the Point of Care Sodium, POCT, B 137 135 - 145 mmol/L 04/19/2019 1:04 P M SQL SSRS DEVELOPER PCLX Comment: ----ADDITIONAL INFORMATION---- Performed at the Point of Care Potassium, POCT, B 3.3 (L) 3.6 - 5.2 mmol/L 04/19/2019 1:0 4 PM SQL SSRS DEVELOPER PCLX Comment: ----ADDITIONAL INFORMATION---- Performed at the Point of Care Hematocrit, POCT, B 39.0 35.5 - 44.9 % 04/19/2019 1:04 PM SQL SSRS DEVELOPER PCLX Comment: ----ADDITIONAL INFORMATION---- Performed at the Point of Care Specimen Anatomical Collection Method Collection Time Receive d Time (Source) Location / / Volume Laterality Blood 04/19/2019 12:58 04/19/2019 1:04 PM SQL SSRS DEVELOPER PM SQL SSRS DEVELOPER Unknown Provider LAB POCT ORDERABLES - DEVICE Performing Organization Address [facility] Phon e Number POC [facility] [address] [place] [address] [place], [place] [id number] [place] [address] (ABNORMAL) ACT (Activated Clotting Time), POCT (04/19/2019 12:48 PM SQL SSRS DEVELOPER) athologist Signature Activated 369 (H) 84 - 139 04/19/2019 PCSM Clotting Time, sec 1:04 PM SQL SSRS DEVELOPER POCT Specimen Anatomical Collection Method Collection Time Receive d Time (Source) Location / / Volume Laterality Blood 04/19/2019 12:48 04/19/2019 1:04 PM SQL SSRS DEVELOPER PM SQL SSRS DEVELOPER Unknown Provider LAB POCT ORDERABLES - DEVICE Performing Organization Address [facility] Phon e Number POC [facility]ST [facility] IN[facility]IENT [address] [place], [place] [address] LABS [place], [place] [phone] [place] [address] POC [address] [place] [address] (ABNORMAL) Glucose, POCT (04/19/2019 12:47 PM SQL SSRS DEVELOPER) athologist Signature Glucose, POCT, 199 (H) 70 - 140 04/19/2019 PCLX B mg/dL 12:49 PM SQL SSRS DEVELOPER Site [facility] 04/19/2019 PCLX 12:49 PM SQL SSRS DEVELOPER Specimen Anatomical Collection Method Collection Time Receive d Time (Source) Location / / Volume Laterality Blood 04/19/2019 12:47 04/19/2019 PM SQL SSRS DEVELOPER 12:49 PM SQL SSRS DEVELOPER Unknown Provider LAB POCT ORDERABLES-MANUAL Performing Organization Address City/State/ZIP Code Phon e Number POC [facility] [address] [place] [address] [place] [address] [place] [facility] [address] (ABNORMAL) ACT (Activated Clotting Time), POCT (04/19/2019 12:19 PM SQL SSRS DEVELOPER) P athologist Signature Activated 341 (H) 84 - 139 04/19/2019 PCSM Clotting Time, sec 12:30 PM SQL SSRS DEVELOPER POCT Specimen Anatomical Collection Method Collection Time Receive d Time (Source) Location / / Volume Laterality Blood 04/19/2019 12:19 04/19/2019 PM SQL SSRS DEVELOPER 12:30 PM SQL SSRS DEVELOPER Unknown Provider LAB POCT ORDERABLES - DEVICE Performing Organization Address [facility] Phon e Number POC [facility]ST [facility] [address] [place], [place] [address] [place] [address] [place] [facility] [address] (ABNORMAL) Prothrombin Time (PT) (04/19/2019 12:16 PM SQL SSRS DEVELOPER) Patholo gist Method Time Signature Prothrombin 95.8 (H) 9.4 - 12.5 04/19/2019 STMA Time, P sec 12:49 PM SQL SSRS DEVELOPER INR 8.3 (CH) 0.9 - 1.1 04/19/2019 STMA 12:49 PM SQL SSRS DEVELOPER Comment: ----ADDITIONAL INFORMATION---- Standard intensity warfarin therapeutic range: 2.0 to 3.0 ?? High intensity warfarin therapeutic rang e: 2.5 to 3.5 Specimen Anatomical Collection Method Collection Time Receive d Time (Source) Location / / Volume Laterality Blood (Blood, 04/19/2019 12:16 04/19/2019 Venous) PM SQL SSRS DEVELOPER 12:23 PM SQL SSRS DEVELOPER Aria Houser APRN C.N.P., M.S.N. LAB BLOOD ADD-ON Performing Organization Address City/State/ZIP [facility] Phon e Number [facility] - [address] [place], [place] [address] [facility] [place] [address] Laboratories-[place] [facility] [place] [address] (ABNORMAL) ACT (Activated Clotting Time), POCT (04/19/2019 11:55 AM SQL SSRS DEVELOPER) P athologist Signature Activated 296 (H) 84 - 139 04/19/2019 PCSM Clotting Time, sec 12:06 PM SQL SSRS DEVELOPER POCT Specimen Anatomical Collection Method Collection Time Receive d Time (Source) Location / / Volume Laterality Blood 04/19/2019 11:55 04/19/2019 AM SQL SSRS DEVELOPER 12:06 PM SQL SSRS DEVELOPER Unknown Provider LAB POCT ORDERABLES - DEVICE Performing Organization Address City/[facility] Phon e Number POC [facility] IN[facility]IENT [address] [place], [place] [address] LABS [place], [place] [phone] [place] [address] (ABNORMAL) ACT (Activated Clotting Time), POCT (04/19/2019 11:27 AM SQL SSRS DEVELOPER) P athologist Signature Activated 353 (H) 84 - 139 04/19/2019 PCSM Clotting Time, sec 11:38 AM SQL SSRS DEVELOPER POCT Specimen Anatomical Collection Method Collection Time Receive d Time (Source) Location / / Volume Laterality Blood 04/19/2019 11:27 04/19/2019 AM SQL SSRS DEVELOPER 11:39 AM SQL SSRS DEVELOPER Unknown Provider LAB POCT ORDERABLES - DEVICE Performing Organization Address [facility] Phon e Number POC [facility] [address] [place], [place] [address] LABS [place], [place] [phone] [place] [address] (ABNORMAL) ACT (Activated Clotting Time), POCT (04/19/2019 11:05 AM SQL SSRS DEVELOPER) P athologist Signature Activated 296 (H) 84 - 139 04/19/2019 PCSM Clotting Time, sec 11:17 AM SQL SSRS DEVELOPER POCT Specimen Anatomical Collection Method Collection Time Receive d Time (Source) Location / / Volume Laterality Blood 04/19/2019 11:05 04/19/2019 AM SQL SSRS DEVELOPER 11:17 AM SQL SSRS DEVELOPER Unknown Provider LAB POCT ORDERABLES - DEVICE Performing Organization Address City/[facility] Phon e Number POC [facility] INPAT[facility] [address] [place], [place] [address] [place] [address] [place] P[facility] [address] (ABNORMAL) Basic Metabolic Panel (04/19/2019 10:46 AM SQL SSRS DEVELOPER) P athologist Signature Potassium, P 3.6 3.6 - 5.2 04/19/2019 STMA mmol/L 11:18 AM SQL SSRS DEVELOPER Sodium, P 139 135 - 145 04/19/2019 STMA mmol/L 11:18 AM SQL SSRS DEVELOPER Chloride, P 100 98 - 107 04/19/2019 STMA mmol/L 11:18 AM SQL SSRS DEVELOPER Bicarbonate, P 25 22 - 29 04/19/2019 STMA mmol/L 11:18 AM SQL SSRS DEVELOPER Anion Gap, P 14 7 - 15 04/19/2019 STMA 11:18 AM SQL SSRS DEVELOPER BUN (Blood Urea 12 6 - 21 04/19/2019 [facility]MA Nitrogen), P mg/dL 11:18 AM SQL SSRS DEVELOPER Creatinine 0.76 0.59 - 04/19/2019 [facility] 1.04 mg/dL 11:18 AM SQL SSRS DEVELOPER eGFR-Black/Afric >90 >=60 04/19/2019 STMA an Norwegian mL/min/BSA 11:18 AM SQL SSRS DEVELOPER Comment: ----ADDITIONAL INFORMATION---- Estimated GFR calculated using the 2009 CKD_EPI creatinine equation. eGFR Non-Black/ 84 >=60 mL/min/BSA 04/19/2019 11:18 AM SQL SSRS DEVELOPER STMA Comment: ----ADDITIONAL INFORMATION---- Estimated GFR calculated using the 2009 CKD_EPI creatinine equation. Calcium, Total, P 8.8 8.8 - 10.2 mg/dL 04/19/2019 11:1 8 AM SQL SSRS DEVELOPER STMA Glucose, P 210 (H) 70 - 140 mg/dL 04/19/2019 11:18 AM SQL SSRS DEVELOPER STMA Specimen Anatomical Collection Method Collection Time Receive d Time (Source) Location / / Volume Laterality Blood (Blood, 04/19/2019 10:46 04/19/2019 Venous) AM SQL SSRS DEVELOPER 11:01 AM SQL SSRS DEVELOPER Renetta Greer APRN C.N.P., D.N.P. LAB BLOOD ADD-ON Performing Organization Address City/State/ZIP Code Phon e Number [facility] - [address] [place], [place] [address] [place] [address] Laboratories-[facility] [address] (ABNORMAL) CBC with Differential, Blood (04/19/2019 10:46 AM SQL SSRS DEVELOPER) Patholo gist Method Time Signature Hemoglobin 13.6 11.6 - 04/19/2019 STMA 15.0 g/dL 11:10 AM SQL SSRS DEVELOPER Hematocrit 40.1 35.5 - 04/19/2019 [facility]MA 44.9 % 11:10 AM SQL SSRS DEVELOPER Erythrocytes 4.42 3.92 - 04/19/2019 STMA 5.13 11:10 AM SQL SSRS DEVELOPER x10(12)/L MCV 90.7 78.2 - 04/19/2019 [facility] 97.9 fL 11:10 AM SQL SSRS DEVELOPER RBC Distrib Width 11.9 (L) 12.2 - 04/19/2019 [facility] 16.1 % 11:10 AM SQL SSRS DEVELOPER Platelet Count 359 157 - 371 04/19/2019 STMA x10(9)/L 11:10 AM SQL SSRS DEVELOPER Leukocytes 9.0 3.4 - 9.6 04/19/2019 [facility]MA x10(9)/L 11:10 AM SQL SSRS DEVELOPER Neutrophils 5.07 1.56 - 04/19/2019 STMA 6.45 11:10 AM SQL SSRS DEVELOPER x10(9)/L Lymphocytes 2.74 0.95 - 04/19/2019 STMA 3.07 11:10 AM SQL SSRS DEVELOPER x10(9)/L Monocytes 0.65 0.26 - 04/19/2019 [facility]MA 0.81 11:10 AM SQL SSRS DEVELOPER x10(9)/L Eosinophils 0.40 0.03 - 04/19/2019 STMA 0.48 11:10 AM SQL SSRS DEVELOPER x10(9)/L Basophils 0.14 (H) 0.01 - 04/19/2019 [facility]MA 0.08 11:10 AM SQL SSRS DEVELOPER x10(9)/L Specimen Anatomical Collection Method Collection Time Receive d Time (Source) Location / / Volume Laterality Blood (Blood, 04/19/2019 10:46 04/19/2019 Venous) AM SQL SSRS DEVELOPER 11:01 AM SQL SSRS DEVELOPER Renetta Greer APRN, C.N.P., D.N.P. LAB BLOOD ADD-ON Performing Organization Address City/State/ZIP Code Phon e Number [facility] - [address] [place], [place] [address] [facility] [place] [address] Laboratories-[facility] [address] (ABNORMAL) Prothrombin Time (PT) (04/19/2019 10:46 AM SQL SSRS DEVELOPER) [facility] gist Method Time Signature Prothrombin 58.0 (H) 9.4 - 12.5 [facility], P sec 11:14 AM SQL SSRS DEVELOPER INR 5.1 (CH) 0.9 - 1.1 04/19/2019 [facility] 11:14 AM SQL SSRS DEVELOPER Comment: ----ADDITIONAL INFORMATION---- Standard intensity warfarin therapeutic range: 2.0 to 3.0 ?? High intensity warfarin therapeutic rang e: 2.5 to 3.5 Specimen Anatomical Collection Method Collection Time Receive d Time (Source) Location / / Volume Laterality Blood (Blood, 04/19/2019 10:46 04/19/2019 Venous) AM SQL SSRS DEVELOPER 11:01 AM SQL SSRS DEVELOPER Ana Pickett APRN.N.P., D.N.P. LAB BLOOD ADD-ON Performing Organization Address City/[facility] Phon e Number [facility] - [address] [place] [address] Type and Screen (with reflex Antibody ID) (04/19/2019 10:45 AM SQL SSRS DEVELOPER) [facility] gist Method Time Signature ABORh A Pos Not 04/19/2019 STRM applicable 11:25 AM SQL SSRS DEVELOPER Antibody Negative Negative 04/19/2019 STRM Screen 11:40 AM SQL SSRS DEVELOPER Type & Screen 04/22/2019 04/19/2019 STRM Expiration 23:59 11:25 AM SQL SSRS DEVELOPER Testing Krista DEFAULT 04/19/2019 STRM Location 11:00 AM SQL SSRS DEVELOPER Specimen Anatomical Collection Method Collection Time Receive d Time (Source) Location / / Volume Laterality Blood (Arm, 04/19/2019 10:45 04/19/2019 Right) AM SQL SSRS DEVELOPER 11:00 AM SQL SSRS DEVELOPER Ana Pickett APRN.N.P., D.N.P. LAB BLOOD BANK T EST ORDERABLES Performing Organization Address [facility]/ZIP [facility] Phon e Number [facility] - [address] (ABNORMAL) Glucose, POCT (04/19/2019 10:44 AM SQL SSRS DEVELOPER) P athologist Signature Glucose, POCT, 206 (H) 70 - 140 04/19/2019 [facility] B mg/dL 10:55 AM SQL SSRS DEVELOPER Site ARTLINE 04/19/2019 PCLX 10:55 AM SQL SSRS DEVELOPER Specimen Anatomical Collection Method Collection Time Receive d Time (Source) Location / / Volume Laterality Blood 04/19/2019 10:44 04/19/2019 AM SQL SSRS DEVELOPER 10:55 AM SQL SSRS DEVELOPER Unknown Provider LAB POCT ORDERABLES-MANUAL Performing Organization Address [facility] Phon e Number POC [facility] [address] [place] [address] [place] [address] [place] [facility] 200 [facility] (ABNORMAL) ACT (Activated Clotting Time), POCT (04/19/2019 10:41 AM SQL SSRS DEVELOPER) athologist Signature Activated 341 (H) 84 - 139 04/19/2019 [facility] Clotting Time, sec 10:53 AM SQL SSRS DEVELOPER POCT Specimen Anatomical Collection Method Collection Time Receive d Time (Source) Location / / Volume Laterality Blood 04/19/2019 10:41 04/19/2019 AM SQL SSRS DEVELOPER 10:53 AM SQL SSRS DEVELOPER Unknown Provider LAB POCT ORDERABLES - DEVICE Performing Organization Address [facility] Phon e Number POC [facility] INPATIENT [address] [place], [place] [address] [place] [address] [place] [facility] [address] [place] [address] Echo - Intraprocedural Images Only (04/19/2019 8:52 AM SQL SSRS DEVELOPER) Specimen (Source) Anatomical Location Collection Method / Collectio n Time Received Time / Laterality Volume Narrative CV EIMS - 04/21/2019 8:52 AM SQL SSRS DEVELOPER Echocardiographic images obtained during EP. See EP report for findings. Marla Pham CV ECHO PROCEDURES Performing Organization Address [facility] Phon e Number CV EIMS NA INR, POCT (04/19/2019 8:37 AM SQL SSRS DEVELOPER) P athologist Signature INR, POCT, B 2.4 04/19/2019 PCED 11:59 AM SQL SSRS DEVELOPER Comment: ----ADDITIONAL INFORMATION---- Standard intensity warfarin therapeutic range: 2.0 to 3.0 ?? High intensity warfarin therapeutic rang e: 2.5 to 3.5 Specimen Anatomical Collection Method Collection Time Receive d Time (Source) Location / / Volume Laterality 04/19/2019 8:37 AM 0 SQL SSRS DEVELOPER 11:59 AM SQL SSRS DEVELOPER Unknown Provider LAB POCT ORDERABLES - DEVICE Performing Organization Address City/[facility]/ZIP Code Phon e Number POC [facility] [address] [place] [address] OUTPATIENT [place] [address] [facility] 200 [facility] (ABNORMAL) Glucose, POCT (04/19/2019 8:37 AM SQL SSRS DEVELOPER) P athologist Signature Glucose, POCT, 224 (H) 70 - 140 04/19/2019 [facility] B mg/dL 8:41 AM SQL SSRS DEVELOPER Specimen Anatomical Collection Method Collection Time Receive d Time (Source) Location / / Volume Laterality Blood 04/19/2019 8:37 AM 0 8:41 SQL SSRS DEVELOPER AM SQL SSRS DEVELOPER Unknown Provider LAB POCT ORDERABLES-MANUAL Performing Organization Address [facility] Phon e Number POC [facility] [address] [place] [address] [place] [address] [facility] 200 [facility] documented in this encounter Visit Diagnoses Diagnosis [...] tablet 1,000 mg Given 04/21/2019 9:55 AM SQL SSRS DEVELOPER 1,000 mg (TYLENOL) 1,000 mg, oral, Every 6 hours PRN, mild pain or score 1-3 of 10, Starting on Fri04/19/19 at 1502, Postprocedure (CV) benzocaine-menthol 15-3.6 mg per lozenge 1 Given 04/21 9:55 AM SQL SSRS DEVELOPER 1 lozenge lozenge (CEPACOL) 1 lozenge, oral, Every 4 hours PRN, sore throat, Starting on Fri04/19/19 at 0934, Postprocedure (CV) Given 04/21/2019 4:53 AM SQL SSRS DEVELOPER 1 lozenge Given 04/20/2019 9:14 PM SQL SSRS DEVELOPER 1 lozenge clotrimazole-betamethasone 1-0.05 % Given 04/21/2019 8:36 AM SQL SSRS DEVELOPER 1 application cream 1 application (LOTRISONE) 1 application, topical, 2 times daily, First dose on Fri04/19/19 at 2100, Postprocedure (CV) Given 04/20/2019 8:20 PM SQL SSRS DEVELOPER 1 application Given 04/20/2019 8:49 AM SQL SSRS DEVELOPER 1 application docusate sodium capsule 100 mg (COLACE) Given 04/21/2019 10:29 AM SQL SSRS DEVELOPER 100 mg 100 mg, oral, 2 times daily PRN, constipation, Starting on Fri04/19/19 at 1502, Postprocedure (CV), Do NOT crush or chew. DULoxetine DR capsule 30 mg (CYMBALTA) Given 04/21/2019 8:38 AM SQL SSRS DEVELOPER 30 mg 30 mg, oral, 2 times daily, First dose on Fri04/19/19 at 2100, Postprocedure (CV), See tube feeding guidelines for tube feeding administration instructions. Given 04/20/2019 8:13 PM SQL SSRS DEVELOPER 30 mg Given 04/20/2019 8:46 AM SQL SSRS DEVELOPER 30 mg ferrous sulfate tablet 65 mg of iron Given 04/21/2019 8:37 AM SQL SSRS DEVELOPER 65 mg of iron 65 mg of iron, oral, Daily, First dose on Fri04/20/19 at 0900, Postprocedure (CV) Given 04/20/2019 8:45 AM SQL SSRS DEVELOPER 65 mg of iron flecainide tablet 100 mg (TAMBOCOR) Given 04/21/2019 8:38 AM SQL SSRS DEVELOPER 100 mg 100 mg, oral, 2 times daily, First dose on Fri04/19/19 at 2100 Given 04/20/2019 8:13 PM SQL SSRS DEVELOPER 100 mg Given 04/20/2019 8:45 AM SQL SSRS DEVELOPER 100 mg fluticasone furoate 100 mcg/actuation inhaler Given 8:36 AM SQL SSRS DEVELOPER 1 puff 1 puff (ARNUITY ELLIPTA) 1 puff, inhalation, Daily, First dose on Fri04/20/19 at 0900, Postprocedure (CV), Rinse mouth with water after use to reduce aftertaste and incidence of candidiasis. Do not swallow. Given 04/20/2019 8:48 AM SQL SSRS DEVELOPER 1 puff furosemide injection 20 mg (LASIX) Given 04/20/2019 9:13 AM SQL SSRS DEVELOPER 20 mg 20 mg, intravenous, Once, On Fri04/20/19 at 0700, For 1 dose, Adults: Doses less than 120 mg: IV push over 20 mg/minute. Doses 120 mg or greater: IVPB at 4 mg/minute. Peds/Neonates: Doses less than 120 mg over 0.5 mg/kg/minute. Doses 120 mg or greater: IVPB at 4 mg/minute. furosemide injection 20 mg (LASIX) Given 04/20/2019 1:25 PM SQL SSRS DEVELOPER 20 mg 20 mg, intravenous, Once, On Fri04/20/19 at 1330, For 1 dose, N/a furosemide injection 40 mg (LASIX) Given 04/21/2019 6:30 AM SQL SSRS DEVELOPER 40 mg 40 mg, intravenous, Once, On Fri04/21/19 at 0700, For 1 dose, N/a levothyroxine tablet 25 mcg (SYNTHROID, Given 04/21/2019 6:30 AM SQL SSRS DEVELOPER 25 mcg LEVOTHROID) 25 mcg, oral, Daily before breakfast, First dose on Fri04/20/19 at 0700, Postprocedure (CV) Given 04/20/2019 5:37 AM SQL SSRS DEVELOPER 25 mcg lidocaine 10 mg/mL (1 %) injection 1 Given 04/19/2019 1:46 PM CS T 7 mL Bilateral mL (XYLOCAINE) 1 mL, intradermal, As needed, with any sheath manipulation. (May repeat twice up to 1 mL each time if patient complains of pain or discomfort at injection site), Starting on Fri04/19/19 at 0911, Intraprocedure (CV) Given 04/19/2019 10:15 AM SQL SSRS DEVELOPER 10 mL Othe r magnesium sulfate in water IVPB 2 g New Bag 04/19/2019 6:06 PM SQL SSRS DEVELOPER 2 g 25 mL/hr 2 g, intravenous, at 25 mL/hr, Administer over 120 Minutes, Once, On Fri04/19/19 at 1745, For 1 dose, Over 2 hours. premix bag metFORMIN tablet 500 mg (GLUCOPHAGE) Given 04/21/2019 8:38 AM SQL SSRS DEVELOPER 500 mg 500 mg, oral, 2 times daily with meals, First dose on 1/27/20 at 1700 Given 04/20/2019 5:20 PM SQL SSRS DEVELOPER 500 mg Given 04/20/2019 8:46 AM SQL SSRS DEVELOPER 500 mg methyl salicylate-menthol 30-10 % cream 1 application (ICY HOT) 1 application, topical, Every 2 hour PRN, muscle/joint pain, Starting on Fri04/19/19 at 1628, @@ Generic Substitution for Johnny @@ @ metoprolol tartrate tablet 50 mg (LOPRES SOR) Given 04/21/2019 8:37 AM SQL SSRS DEVELOPER 50 mg 50 mg, oral, 2 times daily, First dose on Fri04/19/19 at 2100 Given 04/20/2019 8:13 PM SQL SSRS DEVELOPER 50 mg Given 04/20/2019 8:45 AM SQL SSRS DEVELOPER [address] capsule 40 mg (PriLOSEC) Given 04/21/2019 6:30 AM SQL SSRS DEVELOPER 40 mg 40 mg, oral, Daily before breakfast, First dose on Fri04/21/19 at 0700, Postprocedure (CV), Do NOT crush or chew. Capsule may be opened and the contents taken without crushing or chewing. potassium chloride ER tablet 40 mEq Given 04/19/2019 6:02 PM SQL SSRS DEVELOPER 40 mEq (KLORCON/K-TAB) 40 mEq, oral, [...] 8.6 mg (SENOKOT) Given 04/21/2019 10:29 AM SQL SSRS DEVELOPER 8.6 mg 8.6 mg, oral, As needed, constipation, Starting on Fri04/19/19 at 0930, Postprocedure (CV) simvastatin tablet 20 mg (ZOCOR) Given 04/20/2019 8:13 PM SQL SSRS DEVELOPER 20 mg 20 mg, oral, Daily at bedtime, First dose on Fri04/19/19 at 2100, Postprocedure (CV) Given 04/19/2019 8:12 PM SQL SSRS DEVELOPER 20 mg sodium chloride 0.9 % injection 10 mL 10 mL, intravenous, As needed, line care , Peripheral Intravenous Catheter and Rapid Infusion Catheter, Starting on Fri at 2109, Prior to blood sampling, post blood transfusion or post blood sampling. sodium chloride 0.9 % injection 3 mL Given 04/20/2019 9:15 PM SQL SSRS DEVELOPER 3 mL 3 mL, intravenous, As needed, line care, Peripheral Intravenous Catheter and Rapid Infusion Catheter, Starting on Fri04/20/19 at 2109, Prior to and following infusion and between multiple consecutive infusions. sodium chloride 0.9 % injection 3 mL Given 04/21/2019 8:38 AM SQL SSRS DEVELOPER 3 mL 3 mL, intravenous, Every 12 hours scheduled, First dose on Fri04/21/19 at 0900, Peripheral Intravenous Catheter and Rapid Infusion Catheter: When no infusion to maintain patency. SUMAtriptan tablet 50 mg (IMITREX) Given 04/21/2019 4:44 AM SQL SSRS DEVELOPER 50 mg 50 mg, oral, Every 2 hour PRN, migraine, Starting on Fri04/19/19 at 0930, For 2 doses, Postprocedure (CV), SUMAtriptan oral was interchanged for rizatriptan Given 04/20/2019 11:29 AM SQL SSRS DEVELOPER 50 mg topiramate tablet 25 mg (TOPAMAX) Given 04/21/2019 8:38 AM SQL SSRS DEVELOPER 25 mg 25 mg, oral, Daily, First dose on Fri04/20/19 at 0900, Postprocedure (CV) Given 04/20/2019 8:46 AM SQL SSRS DEVELOPER 25 mg warfarin management (COUMADIN) oral, [...] 6 mg (COUMADIN) Given 04/19/2019 6:02 PM SQL SSRS DEVELOPER 6 mg 6 mg, oral, Once, On Fri04/19/19 at 1700, For 1 dose warfarin tablet 6 mg (COUMADIN) Given 04/20/2019 5:20 PM SQL SSRS DEVELOPER 6 mg 6 mg, oral, Once, On Fri04/20/19 at 1700, For 1 dose documented in this encounter Active and Recently Administered Medications Times are shown in SQL SSRS DEVELOPER. Scheduled Medication Order 04/19/2019 04/20/2019 04/21/2019 clotrimazole-betamethasone 1-0.05 % cream 1 applicatio n (LOTRISONE) 2011 (Given - Provider: Naren Michaels R.N.) 0849 (Given - Provider: Jhony smith R.NEdilma)2019 (Given - Provider: Valerie Jaquez R.N.) 0836 (Given - Provider: Talya Duffy R.N.)0945 ([facility] Hold - Provider: Transfer Provider, Automatic - Reason: Patient not available)0954 ([facility] Unhold - Provider: Transfer Provider, Automatic) 1 application, topical, 2 times daily, F irst dose on Fri04/19/19 at 2100, Postprocedure (CV) DULoxetine DR capsule 30 mg (CYMBALTA) 2011 (Given - P rovider: Naren Michaels R.N.) 0846 (Given - Provider: Jhony smith REdilmaNEdilma)2012 (Given - Provider: Valerie Jaquez R.N.) 0838 (Given - Provider: Talya Duffy RMary Ann)0945 ([facility] Hold - Provider: Transfer Provider, Automatic - Reason: Patient not available)0954 ([facility] Unhold - Provider: Transfer Provider, Automatic) 30 mg, oral, 2 times daily, First dose o n Fri04/19/19 at 2100, Postprocedure (CV), See tube feeding guidelines for tube feeding administration instructions. ferrous sulfate tablet 65 mg of iron 084 5 (Given - Provider: Jhony Diego R.N.) 0837 (Given - Provider: Talya tierney REdilmaNEdilma)0945 ([facility] Hold - Provider: Transfer Provider, Automatic - Reason: Patient not available)0954 ([facility] Unhold - Provider: Transfer Provider, Automatic) 65 mg of iron, oral, Daily, First dose o n Fri04/20/19 at 0900, Postprocedure (CV) flecainide tablet 100 mg (TAMBOCOR) 2011 (Given - Prov ider: Naren Michaels RMary Ann) 0845 (Given - Provider: Jhony smith REdilmaNEdilma)2012 (Given - Provider: Valerie Jaquez REdilmaNEdilma) 0838 (Given - Provider: Talya tierney REdilmaNEdilma)0945 ([facility] Hold - Provider: Transfer Provider, Automatic - Reason: Patient not available)0954 ([facility] Unhold - Provider: Transfer Provider, Automatic) 100 mg, oral, 2 times daily, First dose on Fri04/19/19 at 2100 fluticasone furoate 100 mcg/actuation inhaler 1 puff (ARNUIT Y ELLIPTA) 0848 (Given - Provider: Jhony Diego R.N.) 0836 (Given - Provider: Talya Duffy REdilmaNEdilma)0945 ([facility] Hold - Provider: Transfer Provider, Automatic - Reason: Patient not available)0954 ([facility] Unhold - Provider: Transfer Provider, [...] RMary Ann) 0845 (Given - Provider: Jhony msith R.N.)2012 (Given - Provider: Valerie Jaquez REdilmaNEdilma) 0837 (Given - Provider: Talya Duffy R.N.)0945 ([facility] Hold - Provider: Transfer Provider, Automatic - Reason: Patient not available)0954 ([facility] Unhold - Provider: Transfer Provider, Automatic) 50 mg, oral, 2 times daily, First dose on Fri04/19/[address] capsule 40 mg (PriLOSEC) 0630 (Given - Provider: Candy Deluna R.N.)0945 ([facility] Hold - Provider: Transfer Provider, Automatic - Reason: Patient not available)0954 ([facility] Unhold - Provider: Transfer Provider, [...] - Provider: Valerie Jaquez RMary Ann) 0945 ([facility] Hold - Provider: Transfer Provider, Automatic - Reason: Patient not available)0954 ([facility] Unhold - Provider: Transfer Provider, Automatic) 20 mg, oral, Daily at bedtime, First dos e on Fri04/19/19 at 2100, Postprocedure (CV) sodium chloride 0.9 % injection 3 mL 0838 (Given - Provider: Talya Duffy REdilmaNEdilma)0945 ([facility] Hold - Provider: Transfer Provider, Automatic - Reason: Patient not available)0954 ([facility] Unhold - Provider: Transfer Provider, Automatic) 3 mL, intravenous, Every 12 hours schedu led, First dose on Fri04/21/19 at 0900, Peripheral Intravenous Catheter and Rapid Infusion Catheter: When no infusion to maintain patency. topiramate tablet 25 mg (TOPAMAX) 0846 ( Given - Provider: Jhony Diego RMary Ann) 0838 (Given - Provider: Talya tierney R.N.)0945 ([facility] Hold - Provider: Transfer Provider, Automatic - Reason: Patient not available)0954 ([facility] Unhold - Provider: Transfer Provider, Automatic) 25 mg, oral, Daily, First dose on Fri04/20/19 at 0900, Postproce dure (CV) warfarin management (COUMADIN) 1700 (Due) 0 945 ([facility] Hold - Provider: Transfer Provider, Automatic - Reason: Patient not available)0954 ([facility] Unhold - Provider: Transfer Provider, [...] acetaminophen tablet 1,000 mg (TYLENOL) 0945 ([facility] Hold - Provider: Transfer Provider, Automatic - Reason: Patient not available)0954 ([facility] Unhold - Provider: Transfer Provider, Automatic)0955 (Given - Provider: Talya Duffy R.N.) 1,000 mg, oral, Every 6 hours PRN, mild pain or score 1-3 of 10, Starting on Fri04/19/19 at 1502, Postprocedure (CV) albuterol 90 mcg/actuation inhaler 2 puff (PROVENTIL HFA,VENTOLI N HFA) 0945 ([facility] Hold - Provider: Transfer Provider, Automatic - Reason: Patient not available)0953 ([facility] Unhold - Provider: Transfer Provider, Automatic) 2 puff, inhalation, Every 4 hours PRN, s hortness of breath, Starting Fri04/19/19 at 0928, Postprocedure (CV) alum-mag hydroxide-simeth 200-200-20 mg/5 mL suspension 15 mL (M AALOX) 0945 ([facility] Hold - Provider: Transfer Provider, Automatic - Reason: Patient not available)0953 ([facility] Unhold - Provider: Transfer Provider, Automatic) 15 mL, oral, Every 6 hours PRN, indigest ion, Starting Fri04/19/19 at 0928, Postprocedure (CV) atropine injection 0.5 mg 0945 ( [facility] Hold - Provider: Transfer Provider, Automatic - Reason: Patient not available)0954 ([facility] Unhold - Provider: Transfer Provider, [...] (Given - Provider: Aria Green R.N.)0945 ([facility] Hold - Provider: Transfer Provider, Automatic - Reason: Patient not available)0954 ([facility] Unhold - Provider: Transfer Provider, Automatic)0955 (Given - Provider: Talya Duffy R.NEdilma) 1 lozenge, oral, Every 4 hours PRN, sore throat, Starting on Fri04/19/19 at 0934, Postprocedure (CV) carboxymethylcellulose 0.5 % ophthalmic solution 1 drop (REFRESH PLUS) 0945 ([facility] Hold - Provider: Transfer Provider, Automatic - Reason: Patient not available)0954 ([facility] Unhold - Provider: Transfer Provider, Automatic) 1 drop, both eyes, 4 times daily PRN, dr alber eyes, Starting Fri04/19/19 at 0931, Postprocedure (CV) diazePAM tablet 2 mg (VALIUM) 09 45 ([facility] Hold - Provider: Transfer Provider, Automatic - Reason: Patient not available)0954 ([facility] Unhold - Provider: Transfer Provider, Automatic) 2 mg, oral, Every 2 hour PRN, anxiety, m uscle spasms, Starting 04/19/19 at 1502, For 2 doses, Postprocedure (CV), May repeat once if first dose ineffective. Until sheath removal. docusate sodium capsule 100 mg (COLACE) 0945 ([facility] Hold - Provider: Transfer Provider, Automatic - Reason: Patient not available)0954 ([facility] Unhold - Provider: Transfer Provider, Automatic)1038 (Not Given - Provider: Talya Duffy R.Marlon. - Reason: Other) 100 mg, oral, 2 times daily PRN, constip ation, Starting Fri04/19/19 at 0934, Postprocedure (CV), Do NOT crush or chew. docusate sodium capsule 100 mg (COLACE) 0945 ([facility] Hold - Provider: Transfer Provider, Automatic - Reason: Patient not available)0954 ([facility] Unhold - Provider: Transfer Provider, Automatic)1029 (Given - Provider: Talya Duffy R.NEdilma) 100 mg, oral, 2 times daily PRN, constip ation, Starting on Fri04/19/19 at 1502, Postprocedure (CV), Do NOT crush or chew. fentaNYL injection 25 mcg (SUBLIMAZE) 0945 ([facility] Hold - Provider: Transfer Provider, Automatic - Reason: Patient not available)0954 ([facility] Unhold - Provider: Transfer Provider, Automatic) 25 mcg, intravenous, Every 2 hour PRN, m oderate pain or score 4-6 of 10, Starting 04/19/19 at 1502, Postprocedure (CV), May repeat once in dosing interval, if patient unable to take oral analgesics or oral analgesics are ineffective fentaNYL injection 50 mcg (SUBLIMAZE) 0945 ([facility] Hold - Provider: Transfer Provider, Automatic - Reason: Patient not available)0954 ([facility] [facility] Unhold - Provider: Transfer Provider, [...] (CV) melatonin tablet 3 mg 0945 ([facility] Hold - Provider: Transfer Provider, Automatic - Reason: Patient not available)0954 ([facility] Unhold - Provider: Transfer Provider, Automatic) 3 mg, oral, Bedtime PRN, sleep, Starting Fri04/19/19 at 0934, Postprocedure (CV) methyl salicylate-menthol 30-10 % cream 1 application (ICY HOT) 0945 ([facility] Hold - Provider: Transfer Provider, Automatic - Reason: Patient not available)0954 ([facility] Unhold - Provider: Transfer Provider, Automatic) 1 application, topical, Every 2 hour PRN , muscle/joint pain, Starting on Fri04/19/19 at 1628, @@ Generic Substitution for BenGay @@@ midazolam (PF) injection 1 mg (VERSED) 0945 ([facility] Hold - Provider: Transfer Provider, Automatic - Reason: Patient not available)0954 ([facility] Unhold - Provider: Transfer Provider, Automatic) 1 mg, intravenous, Every 2 hour PRN, anx iety, muscle spasms, Starting Fri04/19/19 at 1502, For 2 doses, Postprocedure (CV), for over 2 minutes. May repeat x1 dosing interval. Patient must be NPO for 2 hours prior to giving. Until sheath removal. naloxone injection 0.2 mg (NARCAN) 0945 ([facility] Hold - Provider: Transfer Provider, Automatic - Reason: Patient not available)0954 ([facility] Unhold - Provider: Transfer Provider, Automatic) 0.2 mg, intravenous, As needed, respirat ory depression, Starting Fri04/19/19 at 1502, Postprocedure (CV), For respiratory rate less than 8 breaths per minute or RASS score of -3, -4, -5. Apply oxygen to keep oxygen saturations greater than 90% and notify service. oxyCODONE IR tablet 5 mg (ROXICODONE) 0945 ([facility] Hold - Provider: Transfer Provider, Automatic - Reason: Patient not available)0954 ([facility] Unhold - Provider: Transfer Provider, Automatic) 5 mg, oral, Every 6 hours PRN, moderate pain or score 4-6 of 10, Starting Fri04/19/19 at 1502, Postprocedure (CV), If acetaminophen ineffective and patient able to take oral analgesics polyethylene glycol powder packet 17 g (MIRALAX) 0945 ([facility] Hold - Provider: Transfer Provider, Automatic - Reason: Patient not available)0954 ([facility] Unhold - Provider: Transfer Provider, Automatic) 17 g, oral, As needed, constipation, Sta rting Fri04/19/19 at 0929, For 237 days, Postprocedure (CV), Dissolve in 240 mLs (8 ounces) of water prior to giving. Avoid mixing with starch-based thickened liquids. prochlorperazine injection 5 mg (COMPAZINE) 0945 ([facility] Hold - Provider: Transfer Provider, Automatic - Reason: Patient not available)0954 ([facility] Unhold - Provider: Transfer Provider, Automatic) 5 mg, intravenous, Every 6 hours PRN, na usea, vomiting, Starting on Fri04/19/19 at 1744 promethazine injection 6.25 mg (PHENERGAN) 0945 ([facility] Hold - Provider: Transfer Provider, Automatic - Reason: Patient not available)0954 ([facility] Unhold - Provider: Transfer Provider, Automatic) 6.25 mg, intravenous, Every 6 hours PRN, nausea, vomiting, Starting on Fri04/19/19 at 1744 sennosides tablet 8.6 mg (SENOKOT) 0945 ([facility] Hold - Provider: Transfer Provider, Automatic - Reason: Patient not available)0954 ([facility] Unhold - Provider: Transfer Provider, Automatic)1029 (Given - Provider: Talya Duffy R.N.) 8.6 mg, oral, As needed, constipation, S tarting on Fri04/19/19 at 0930, Postprocedure (CV) sodium chloride 0.9 % injection 10 mL 0945 ([facility] Hold - Provider: Transfer Provider, Automatic - Reason: Patient not available)0954 ([facility] Unhold - Provider: Transfer Provider, [...] as of this encounter Care Teams Rn Community Relationship Specialty Start Date End Date Elsewhere, Pcp PCP - General Internal Medicine 07/27/18 documented as of this encounter
--- OUTSIDE RECORDS SUMMARY | 2022-01-03 11:01 | XMS_ITS | Encounter Summary ---
:1955 Author Organization [facility] Address [address] [place] [address] Care Team Providers Name Role Phone Elsewhere, Pcp Primary Care Provider Unavailable Reason for Visit Reason Onset Date Comments Plan update 01/25/2019 Communication Encounter Details Date Type Department Care Team Description 01/25/2019 Clinical Department of [facility], Plan update Communication Cardiovascular Porfirio (Communicati on) Medicine in [facility] , [place] [address] [address] [facility] [address] [place] [phone] Social History Tobacco Use Types Packs/Day Years [...] do you attend adventism or Never 2018 rastafarian services? Do you [...] - 01/25/2019 1:38 PM CST Sierra from [facility] called as she wondered the plan for patient and at what point would be pacemaker placement. Please call Sierra at [phone] Thank you Diana (Answering for Deepti) OMER SERVICE LEADER documented in this encounter Plan of Treatment Not on filedocumented as of this encounter Visit Diagnoses Not on filedocumented in this encounter Additional Health Concerns Assessment Noted Time PHQ-9 Depression Total Score: 11 05/04/2013 4:05 PM CS T documented as of this encounter Care Teams Furniture Servicer Relationship Specialty Start Date End Date Elsewhere, Pcp PCP - General Internal Medicine 07/27/18 documented as of this encounter
--- OUTSIDE RECORDS SUMMARY | 2022-01-03 11:01 | XMS_ITS | Encounter Summary ---
:1955 Author Organization [facility] Address [address] [place] [address] Care Team Providers Name Role Phone Elsewhere, Pcp Primary Care Provider Unavailable Reason for Visit Appointment Request (Routine) - Closed Specialty Diagnoses / Procedures Referred By Contact Refer red To Contact Cardiovascular Disease Porfirio Villegas M.D. [address] [place] [address] Referral ID Status Reason Start Date Expiration Date Visits Requ ested Visits Authorized [id number] Closed 01/25/2019 01/25/2020 1 1 Encounter Details Date Type Department Care Team Description 02/26/2019 Office Visit Department of Newton Villegas Cardiovascular Medicine Porfirio (HC C) (Primary Dx) in [facility] nasim [place] [address] [facility] [address] [place] [address] [place], [place] [phone] Social History Tobacco Use Types Packs/Day Years [...] or relatives? How often do you attend roman catholic or Never 2018 mormonism services? Do you belong to any clubs or No 02/26/2019 organizations such as roman catholic groups, unions, fraternal or athletic groups, [...] (218 lb 0.6 oz) 02/26/2019 1:12 PM AUTOMATION DEVELOPER Height 165.6 cm (5' 5.2) 02/26/2019 1:12 PM AUTOMATION DEVELOPER Body Mass Index 36.06 02/26/2019 1:12 PM AUTOMATION DEVELOPER documented in this encounter Progress Notes Porfirio [...] or concerns arise. Reviewed with Dr. Yeager. MATION DEVELOPER documented in this encounter Plan of Treatment Not on filedocumented as of this encounter Visit Diagnoses Diagnosis Atrial Fibrillation Unspecified - Primar y documented in this encounter Additional Health Concerns Assessment Noted Time PHQ-9 Depression Total Score: 11 05/04/2013 4:05 PM CS T documented as of this encounter Care Teams Convolute Tube Winder Relationship Specialty Start Date End Date Elsewhere, Pcp PCP - General Internal Medicine 07/27/18 documented as of this encounter
--- OUTSIDE RECORDS SUMMARY | 2022-01-03 11:01 | XMS_ITS | Encounter Summary ---
:1955 Author Organization [facility] Address [address] [place] [address] Care Team Providers Name Role Phone Elsewhere, Pcp Primary Care Provider Unavailable Reason for Referral Outpatient (Routine) - Closed Specialty Diagnoses / Procedures Referred By Contact Refer red To Contact Diagnoses Flutter At[facility]HCC) [facility] 12 Lead M.DEdilma [address] [place], [place] [address] Referral ID Status Reason Start Date Expiration Date Visits Requ ested Visits Authorized [id number] Closed 01/21/2019 01/21/2020 1 1 Reason for Visit Outpatient (Routine) - Closed Specialty Diagnoses / Procedures Referred By Contact Refer steven To Contact [facility] [place] [address] [place] [address] Referral ID Status Reason Start Date Expiration Date Visits Requ ested Visits Authorized [id number] Closed 11/25/2018 11/25/2019 1 1 Encounter Details Date Type Department Care Team Description 01/20/2019 Office Visit Department of Nelly, Flutter Atrial (HCC) Cardiovascular Medicine Porfirio (Pr imary Dx) in [facility] nasim [place] [address] [facility] [address] [place] [address] [place], [place] [phone] Social History Tobacco Use Types Packs/Day Years [...] do you attend orthodox or Never 2018 sikhism services? Do you [...] engage her son, Yaya, who lives in [place]. Please see social worker masters documentation dated November 24, 2018. Unfortunately, Yaya was not able to make it to the appointment today. At this point, it appears that she is her own decision-maker without anyone formally appointed as a power of retail receiving clerk. However, she identifies her son, Yaya, as [...] Results ECG 12 Lead (02/26/2019 1:32 PM THIRD COOK) [facility] Method Time Signature Ventricular 88 BPM MUSE Rate ECG/Min QRSD Interval 102 ms MUSE QT Interval 358 ms MUSE QTC Interval 433 ms MUSE R [place] 88 degrees MUSE T Wave [place] -89 degrees MUSE CODED Atrial MUSE DIAGNOSIS fibrillation CODED Atrial MUSE DIAGNOSIS fibrillation CODED Atrial flutter MUSE DIAGNOSIS Specimen Anatomical Collection Method Collection Time Receive d Time (Source) Location / / Volume Laterality 02/26/2019 1:32 PM 9 1:46 THIRD COOK PM THIRD COOK Impressions MUSE - 02/26/2019 1:46 PM THIRD COOK Atrial fibrillation ST and T wave abnormality, [...] documented as of this encounter Care Teams Grief Counselor Relationship Specialty Start Date End Date Elsewhere, Pcp PCP - General Internal Medicine 07/27/18 documented as of this encounter
--- OUTSIDE RECORDS SUMMARY | 2022-01-03 11:01 | XMS_ITS | Encounter Summary ---
:1955 Author Organization [facility] Address [address] [place] [address] Care Team Providers Name Role Phone Elsewhere, Pcp Primary Care Provider Unavailable Encounter Details Date Type Department Care Team Description 01/19/2019 Hospital Encounter Department of Siontis, Thrombus Atrial (HCC); Cardiovascular Diseases Porfirio, Flu tter Atrial (HCC) in [facility] nasim Kellogg [address] [facility] [address] [place] [phone] [phone] Social History Tobacco Use Types Packs/Day Years [...] do you attend evangelical or Never 2018 yazidi services? Do you [...] tablet total) by mouth at bedtime. Hyperlipidemia polyethylene glycol Take 1 packet (17 g 60 packet 11 019 12/11/2019 (MIRALAX) 17 gram total) by mouth 2 (two) powder packet times a day. Dissolve each 17 g dose in 240 mLs (8 ounces) of beverage. aspirin [address] Take 81 mg by mouth 0 04/16/2019 tablet daily. digoxin (LANOXIN) 250 Take 250 [...] per previous homegoing care plan. warfarin (COUMADIN) 6 Take 6 mg by mouth. 0 04/21/2019 mg tablet Take as directed per After Visit Summary. Friday, documented as of this encounter H&P Notes Leopoldo Shaffer Admin Closure - 01/19/2019 1:00 PM CDT Administrative Closure: This record is being filed as incomplete for a missing H&P. Health Information Management Services STRING MAKER documented in this encounter Plan of Treatment [...] ventricul ar ejection fraction 55 % with nzpe-ey-rihq variability. RIGHT VENTRICLE: ??Mild right ventricul ar [...] performed at the request of the primary office services associate. ??Adult probe inserted without difficulty. ??Procedure performed [...] ventricular ejection f raction 55 % with znot-au-bqob variability. 5. Tiny pericardial effusion around the [...] ventricular ejection f raction 55 % with zpvj-qd-jonh variability. 5. Tiny pericardial effusion around the [...] left ventricular ejection fraction 55 % with iqwy-xj-sybt variability. RIGHT VENTRICLE: Mild right ventricular enlargement. [...] performed at the request of the primary office services associate. Adult pr obe inserted without difficulty. Procedure [...] documented as of this encounter Care Teams Swing Frame Grinder Operator Relationship Specialty Start Date End Date Elsewhere, Pcp PCP - General Internal Medicine 07/27/18 documented as of this encounter
--- OUTSIDE RECORDS SUMMARY | 2022-01-03 11:01 | XMS_ITS | Encounter Summary ---
:1955 Author Organization [facility] Address [address] [place] [address] Care Team Providers Name Role Phone Elsewhere, Pcp Primary Care Provider Unavailable Reason for Referral MRI/CAT/PET Scan (Routine) - Closed Specialty Diagnoses / Procedures Referred By Contact Refer red To Contact Radiology Diagnoses Atrial Fibrillation Unspecified [facility] Procedures CT Cardiac Angiogram Pulmonary Veins with IV M.D. [address] [place] [address] Referral ID Status Reason Start Date Expiration Date Visits Requ ested Visits Authorized [id number] Closed 03/04/2019 03/03/2020 1 1 NITION SPECIALIST Outpatient (Routine) - Closed Specialty Diagnoses / Procedures Referred By Contact Refer red To Contact Diagnoses Atrial Fibrillation Unspecified [facility] Procedures ECG 12 Lead M.D. [address] [place] [address] Referral ID Status Reason Start Date Expiration Date Visits Requ ested Visits Authorized [id number] Closed 03/04/2019 03/03/2020 1 1 NITION SPECIALIST Reason for Visit Reason Onset Date Comments schedule PVI ablation with Dr. Chapman 03/04/20 19 Encounter Details Date Type Department Care Team Description 03/04/2019 Clinical Department of ashvin Quezada PVI Communication Cardiovascular opal [address] Dr[address] [facility] [place] [address] [facility] Marie [address] [place] [phone] [phone] Social History Tobacco Use Types Packs/Day Years [...] do you attend hindu or Never 2018 gnosticism services? Do you [...] for me to proceed? Thank you, Delisa NITION SPECIALIST Telephone Encounter - Rosemarie Quezada R.N. - 03/04/2019 11:32 AM AMMUNITION SPECIALIST PATIENT INFORMATION- This was coordinated with Sierra [...] agreement with instructions. All questions were answered. [facility] Service Line [facility] Backup Line PLAN Disposition/Recommendation: protocol orders Education: patient/caller able to teach back Caller agreeable to plan of care: yes The following references were used: patient education resources: title Preparing for Your Heart Rhythm Procedure [id number] and [facility] protocols: title Heart Rhythm Clinic [id number] and Medication Management for Patients Undergoing Heart Ablation and LEft Atrial Appendage Occlusion [id number] NITION SPECIALIST documented in this encounter Plan of Treatment Not on filedocumented as of this encounter Results ECG 12 Lead (04/16/2019 10:49 AM AMMUNITION SPECIALIST) [facility] Method Time Signature Ventricular 91 BPM MUSE Rate ECG/Min QRSD Interval 92 ms MUSE QT Interval 360 ms MUSE QTC Interval 442 ms MUSE R [place] 91 degrees MUSE T Wave [place] -80 degrees MUSE CODED Atrial MUSE DIAGNOSIS fibrillation Specimen Anatomical Collection Method Collection Time Receive d Time (Source) Location / / Volume Laterality 04/16/2019 10:49 04/16/2019 AM AMMUNITION SPECIALIST 10:55 AM AMMUNITION SPECIALIST Impressions MUSE - 04/16/2019 10:55 AM AMMUNITION SPECIALIST Atrial fibrillation Rightward axis ST and T [...] waves have changed Reviewed by SPENCER Ingram Porfirio Villegas M.D. ECG ORDERABLES Performing Organization Address City/State/ZIP Code Phon e Number MUSE MUSE NA CT Cardiac Angiogram Pulmonary Veins with IV (04/16/2019 10:12 AM AMMUNITION SPECIALIST) Anatomical Region Laterality Modality Cardiac, Cardiovascular RST LOS, N/A Compute d Tomography, Computed Thoracic ARZ LOS, Cardiovascular FLA Godwin ography LOS Specimen (Source) Anatomical Collection Method Collection Time Re ceived Time Location / / Volume Laterality 04/16/2019 10:05 AM AMMUNITION SPECIALIST Impressions 04/16/2019 10:21 AM AMMUNITION SPECIALIST 1. Normal variant pulmonary vein anatomy with [...] infectious or inflammatory. Narrative 04/16/2019 10:21 AM AMMUNITION SPECIALIST EXAM: ??CT CARDIAC ANGIOGRAM PULMONARY VEINS WITH IV CONTRAST COMPARISON: ??[facility] CT chest witho ut intravenous contrast 02/05/2012. [...] T8, unchanged. C holecystectomy clips evident on corporate director talent assessment topogram. Procedure Note Nikunj Bolton M.D. - 04/16/2019Formattin g of this note might be different from the original. EXAM: CT CARDIAC ANGIOGRAM PULMONARY VEI NS WITH IV CONTRAST COMPARISON: [facility] CT chest without intravenous contrast 02/05/2012. FINDINGS: [...] T8, unchanged. C holecystectomy clips evident on corporate director talent assessment topogram. IMPRESSION: 1. Normal variant pulmonary vein [...] documented as of this encounter Care Teams Neurology Epilepsy Physician Relationship Specialty Start Date End Date Elsewhere, Pcp PCP - General Internal Medicine 07/27/18 documented as of this encounter
--- OUTSIDE RECORDS SUMMARY | 2022-01-03 11:01 | XMS_ITS | Encounter Summary ---
:1955 Author Organization [facility] Address [address] [place] [address] Care Team Providers Name Role Phone Elsewhere, Pcp Primary Care Provider Unavailable Encounter Details Date Type Department Care Team Description 03/01/2019 Clinical Communication Department of [facility] Cardiovascular Medicine Porfirio [facility] nasim [place] [address] [facility] [address] [place] [address] [place], [place] [phone] Social History Tobacco Use Types Packs/Day [...] or relatives? How often do you attend yazidism or Never 2018 christian services? Do you belong to any clubs or No 02/26/2019 organizations such as yazidism groups, unions, fraternal or athletic groups, or [...] Porfirio Villegas M.D. - 03/02/2019 6:33 AM BODY SHOP ESTIMATOR Our senior master scheduler, Rosemarie Quezada, is already working on this. Thank you SHOP ESTIMATOR Telephone Encounter - Delisa Lyons - 03/01/2019 2:[address] Villegas, Patient had called and said that you were possibly looking at an ablation for her. Is this somethingwe should start to schedule? Thank you. PASS: Call Stuart [phone] regular senior care provider for patient - leave vm if no answer SHOP ESTIMATOR documented in this encounter Plan of Treatment Not on filedocumented as of this encounter Visit Diagnoses Not on filedocumented in this encounter Additional Health Concerns Assessment Noted Time PHQ-9 Depression Total Score: 11 05/04/2013 4:05 PM CS T documented as of this encounter Care Teams Livestock Judging Coach Relationship Specialty Start Date End Date Elsewhere, Pcp PCP - General Internal Medicine 07/27/18 documented as of this encounter
--- OUTSIDE RECORDS SUMMARY | 2022-01-03 11:01 | XMS_ITS | Encounter Summary ---
:1955 Author Organization [facility] Address [address] [place] [address] Care Team Providers Name Role Phone Elsewhere, Pcp Primary Care Provider Unavailable Encounter Details Date Type Department Care Team Description 04/19/2019 Anesthesia Event Division of Cardiovascular Melyssa Lazar, Diseases in [place], FLOAT TENDER, CRN [place] [address] [facility] [address] [place] [address] [phone] Anesthesia Record Procedure Summary Procedure Name Responsible [...] h andoff to the receiving staff during [facility] ch we 1. Identified the patient 2. [...] 1,000 units/mL injection 15,000 Units heparin standard 82626 Units/250 mL in D5W infusion 3, 767.08 [...] do you attend confucianism or Never 2018 druze services? Do you belong to any clubs or No 02/26/2019 organizations such as confucianism groups, unions, fraternal or athletic groups, or [...] Procedure Summary Date: 04/19/19 Room / Location: [facility] / [facility] Anesthesia Start: 852 Anesthesia Stop: 1413 Procedures: [...] Post Op nausea/vomiting: none Hydration status: euvolemic CUT OPERATOR Anesthesia Preprocedure Evaluation - Amanda Lazar APRN, CRNA - 04/19/2019 10:58 AM CST Preprocedure Anesthesia & H&P Assessment Procedure Summary Anesthesia Start Date/Time: 04/19/19 0853 Procedures: ABLATION - PVI (N/A ) 3D Mapping - Carto (N/A ) Ultrasound guidance for vascular access (N/A ) Intracardiac Echocardiogram (N/A ) Diagnosis: Atrial Fibrillation (HCC) [I48.91] Location: [place] [address] / [facility] Surgeon: Marla Yeager M.B.B.S. Pertinent components of [...] with patient /legal guardian or through an lamp shade assembler. Risks/Benefits/Alternatives of Blood transfusion discussed with patient / legal guardian, including an opportunity to ask questions and/or decline some or all transfusion therapies. The patient / legalguardian consented to the use of all blood products, as deemed medically necessary Approval to Proceed: approved for anesthesia CUT OPERATOR Anesthesia Procedure Notes - Amanda Lazar APRN, CRNA - 04/19/2019 9:50 AM DIE CUT OPERATOR Associated Order(s): Airway Airway Date/Time: 04/19/2019 9:08 AM Performed by: Amanda Lazar APRN, CRNA Authorized by: Amanda Lazar APRN, CRNA Patient location during procedure: OR / Procedure Area PROCEDURE DETAILS: Mask difficulty assessment: easy mask Final airway type: video laryngoscope Laryngeal Manipulation: no Final best view of glottic structures - Cormack/Lehane Score: grade 2A ETT location: oral VL device: glide scope [place] scope blade size: 3 Adult tube size: [...] airway technique used for educational purposes: yes CUT OPERATOR Anesthesia Procedure Notes - Amanda Lazar APRN, CRNA - 04/19/2019 9:49 AM DIE CUT OPERATOR Associated Order(s): Invasive Catheter Invasive Catheter Date/Time: [...] with sutureless device Complications - arterial: none CUT OPERATOR documented in this encounter Plan of Treatment Not on filedocumented as of this encounter Procedures Procedure Name Priority Date/Time Associated Comments Diagnosis LDA ANE ENDOTRACHEAL Routine 04/19/2019 9:50 AM R esults for this AIRWAY DIE CUT OPERATOR procedure are i n the results section. LDA ANE ARTERIAL LINE Routine 04/19/2019 9:49 AM Results for this INSERTION DIE CUT OPERATOR procedure are i n the results section. ME ARTL CATH/CNULA Routine 04/19/2019 9:49 AM Res ults for this MONITOR PERC DIE CUT OPERATOR procedure are i n the results section. documented in this encounter Results LDA ANE ENDOTRACHEAL AIRWAY (04/19/2019 9:50 AM DIE CUT OPERATOR) Narrative Amanda Lazar APRN, CRNA - 04/19/2019 9 :50 AM DIE CUT OPERATOR Amanda Lazar APRN, CRNA ? 04/19/2019 ??9:52 [...] ETT location: oral VL device: glide scope [place] scope blade size: 3 Adult tube size: [...] yes Amanda Lazar APRN, CRNA ANESTHESIA ORDERABLES ME ARTL CATH/CNULA MONITOR PERC, LDA ANE ARTERIAL LINE INSERTION (04/19/2019 9:49 AM DIE CUT OPERATOR) Narrative Amanda Lazar APRN, CRNA - 04/19/2019 9 :49 AM DIE CUT OPERATOR Amanda Lazar APRN, CRNA ? 04/19/2019 ??9:50 [...] Complications - arterial: none Amanda L Nagi FLOAT TENDER, DOLPHIN TRAINER PROCEDURE/MINOR SURGICAL ORD ERABLES documented in this encounter Visit Diagnoses Not on filedocumented in this encounter Administered Medications Inactive Administered Medications - up to 3 most recent administrations Medication Order MAR Action Action Date Dose Rate Site acetaminophen injection Given 04/19/2019 1:56 PM DIE CUT OPERATOR 1,000 mg (OFIRMEV) Administer over 15 Minutes, As needed, Starting on Fri04/19/19 at 1356, Anesthesia Intra-op adenosine injection (ADENOCARD) Given 04/19/2019 1:09 PM DIE CUT OPERATOR 9 mg As needed, Starting on Fri04/19/19 at 1301, Anesthesia Intra-op Given 04/19/2019 1:07 PM DIE CUT OPERATOR 9 mg Given 04/19/2019 1:01 PM DIE CUT OPERATOR 9 mg ceFAZolin injection (ANCEF) Given 04/19/2019 1:20 PM DIE CUT OPERATOR 2 g As needed, Starting on Fri04/19/19 at 1027, Anesthesia Intra-op Given 04/19/2019 10:27 AM DIE CUT OPERATOR 2 g fentaNYL injection (SUBLIMAZE) Given 04/19/2019 1:50 PM DIE CUT OPERATOR 50 mcg As needed, Starting on Fri04/19/19 at 0906, Anesthesia Intra-op Given 04/19/2019 11:34 AM DIE CUT OPERATOR 50 mcg Given 04/19/2019 9:56 AM DIE CUT OPERATOR 50 mcg fentaNYL injection (SUBLIMAZE) Given 04/19/2019 10:08 AM DIE CUT OPERATOR 100 mcg intravenous, As needed, Starting on Fri04/19/19 at 1008, Anesthesia Intra-op furosemide injection (LASIX) Given 04/19/2019 11:41 AM DIE CUT OPERATOR 20 mg As needed, Starting on Fri04/19/19 at 1141, Anesthesia Intra-op heparin (porcine) 1,000 unit/mL Given 04/19/2019 12:02 PM DIE CUT OPERATOR 3, 000 Units injection As needed, Starting on Fri04/19/19 at 1024, Anesthesia Intra-op Given 04/19/2019 11:12 AM DIE CUT OPERATOR 2,000 Units Given 04/19/2019 10:24 AM DIE CUT OPERATOR 10,000 Units heparin (porcine) 100 Rate/Dose 04/19/2019 12:55 13 Units/kg/hr 12.8 mL/hr Units/mL in D5W 250 mL Change PM DIE CUT OPERATOR infusion Continuous Infusion: Per Instructions PRN, Starting on Fri04/19/19 at 1030, Anesthesia Intra-op Rate/Dose Change 04/19/2019 12:01 PM DIE CUT OPERATOR 14 Units/kg/hr 13.8 mL/hr Rate/Dose Change 04/19/2019 11:12 AM DIE CUT OPERATOR 12 Units/kg/hr 11.8 mL/hr heparin infusion 2 units/mL in NaCl New Bag 04/19/2019 1:28 PM DIE CUT OPERATOR Continuous Infusion: Per Instructions PRN, Starting on Fri04/19/19 at 1212, Anesthesia Intra-op New Bag 04/19/2019 12:12 PM DIE CUT OPERATOR lactated ringers New Bag 04/19/2019 8:50 AM DIE CUT OPERATOR intravenous, Continuous Infusion: Per Instructions PRN, Starting on Fri04/19/19 at 0850, Anesthesia Intra-op lactated ringers New Bag 04/19/2019 9:23 AM DIE CUT OPERATOR intravenous, Continuous Infusion: Per Instructions PRN, Starting on Fri04/19/19 at 0923, Anesthesia Intra-op ondansetron (PF) injection (ZOFRAN) Given 04/19/2019 10:31 AM DIE CUT OPERATOR 4 mg intravenous, As needed, Starting on Fri04/19/19 at 1031, Anesthesia Intra-op phenylephrine 80 mcg/mL in Rate/Dose 04/19/2019 1:21 0.1 mcg/kg/min 7.38 mL/hr NaCl 0.9% 250 mL infusion Change PM DIE CUT OPERATOR Continuous Infusion: Per Instructions PRN, Starting on Fri04/19/19 at 1029, Anesthesia Intra-op Rate/Dose Change 04/19/2019 1:11 PM DIE CUT OPERATOR 0.2 mcg/kg/min 14.8 mL/hr Rate/Dose Change 04/19/2019 1:06 PM DIE CUT OPERATOR 0.3 mcg/kg/min 22.1 mL/hr phenylephrine injection Given 04/19/2019 1:44 PM DIE CUT OPERATOR 100 mcg intravenous, As needed, Starting on Fri04/19/19 at 1341, Anesthesia Intra-op Given 04/19/2019 1:41 PM DIE CUT OPERATOR 100 mcg potassium chloride IVPB Given 04/19/2019 11:48 AM DIE CUT OPERATOR 10 mEq Administer over 60 Minutes, As needed, Starting on Fri04/19/19 at 1148, Anesthesia Intra-op propofol injection (DIPRIVAN) Given 04/19/2019 9:33 AM DIE CUT OPERATOR 30 mg As needed, Starting on Fri04/19/19 at 0906, Anesthesia Intra-op Given 04/19/2019 9:18 AM DIE CUT OPERATOR 40 mg Given 04/19/2019 9:06 AM DIE CUT OPERATOR 120 mg propofol injection (DIPRIVAN) Given 04/19/2019 10:35 AM DIE CUT OPERATOR 40 mg intravenous, As needed, Starting on Fri04/19/19 at 1035, Anesthesia Intra-op rocuronium injection (ZEMURON) Given 04/19/2019 10:27 AM DIE CUT OPERATOR 30 mg As needed, Starting on Fri04/19/19 at 0906, Anesthesia Intra-op Given 04/19/2019 9:06 AM DIE CUT OPERATOR 50 mg vecuronium injection (NORCURON) Given 04/19/2019 9:06 AM DIE CUT OPERATOR 10 mg As needed, Starting on Fri04/19/19 at 0906, Anesthesia Intra-op documented in this encounter Additional Health Concerns Assessment Noted Time PHQ-9 Depression Total Score: 11 05/04/2013 4:05 PM CS T documented as of this encounter Care Teams Rig Site Engineer Relationship Specialty Start Date End Date Elsewhere, Pcp PCP - General Internal Medicine 07/27/18 documented as of this encounter
--- OUTSIDE RECORDS SUMMARY | 2022-01-03 11:02 | XMS_ITS | Encounter Summary ---
:1955 Author Organization [facility] Address [address] [place] [address] Care Team Providers Name Role Phone Elsewhere, Pcp Primary Care Provider Unavailable Reason for Visit Reason Onset Date Comments Rapid Heart Rate 10/30/2018 Encounter Details Date Type Department Care Team Description 10/30/2018 Clinical Department of Mandie Harris Heart Ra te Communication Cardiovascular Tracy Orozco, Medicine in [place], M.S.N., R .N. [place] [phone] [address] [facility] (Work) [place] [address] Social History Tobacco Use Types Packs/Day Years [...] do you attend confucianism or Never 2018 jew services? Do you [...] 11/02/2018 4:10 PM CDT I contacted the care home. Dr. Johnston was not available, but I spoke to her nurse. Her vitals over the last few days show consistently elevated heart rate between 110-135 beats per minute. She is asymptomatic other than occasional headache. Her edema is improved. [facility] [...] CDT INFORMATION DISCUSSED Dr. Johnston from a calculus tutor facility in [place], [place] contacted [facility] regarding Ms. Metcalf. He states that he is overseeing her care in the care home until Ms. Metcalf can be transferred to the assisted living facility (she is waiting for an open bed). Dr. Johnston states that in the care home they are monitoring Ms. Metcalf's vital signs. [...] Dr. Johnston can be reached at the care home facility's phone number of : [phone]. He said verbal orders can also be [...] documented as of this encounter Care Teams Behavioral Health Clinician Relationship Specialty Start Date End Date Elsewhere, Pcp PCP - General Internal Medicine 07/27/18 documented as of this encounter
--- OUTSIDE RECORDS SUMMARY | 2022-01-03 11:02 | XMS_ITS | Encounter Summary ---
:1955 Author Organization [facility] Address [address] [place] [address] Care Team Providers Name Role Phone Elsewhere, Pcp Primary Care Provider Unavailable Reason for Visit Outpatient (Routine) - Canceled Specialty Diagnoses / Procedures Referred By Contact Refer red To Contact Social Work Diagnoses Thrombus Atrial (HCC) Flutter Atrial (HCC) Porfirio Villegas [facility] Bess [address] [place] [phone] Referral ID Status Reason Start Date Expiration Date Visits V isits Requested Authorized [id number] Canceled 11/25/2018 11/25/2019 1 1 Encounter Details Date Type Department Care Team Description 11/26/2018 Clinical Communication Department of Porfirio Fraga M.D. [address] [place] [phone] No Show Work in [place], Teresa, Andrade Mccall.C.S.W., M.S.WEdilma [address] [place] [phone] [phone] Social History Tobacco Use Types Packs/Day Years [...] or relatives? How often do you attend holiness or Never 2018 christianity services? Do you belong to any clubs or No 02/26/2019 organizations such as holiness groups, unions, fraternal or athletic groups, or [...] back number for patient to call office [phone] documented in this encounter Plan of Treatment Not on filedocumented as of this encounter Visit Diagnoses Not on filedocumented in this encounter Additional Health Concerns Assessment Noted Time PHQ-9 Depression Total Score: 11 05/04/2013 4:05 PM CS T documented as of this encounter Care Teams Press Feeder Broomcorn Relationship Specialty Start Date End Date Elsewhere, Pcp PCP - General Internal Medicine 07/27/18 documented as of this encounter
--- OUTSIDE RECORDS SUMMARY | 2022-01-03 11:02 | XMS_ITS | Encounter Summary ---
:1955 Author Organization [facility] Address [address] [place] [address] Care Team Providers Name Role Phone Elsewhere, Pcp Primary Care Provider Unavailable Encounter Details Date Type Department Care Team Description 11/25/2018 Hospital Encounter Department of Siontis, Abnormal Liver Radiology, Garett Monroy Count includes the [facility] in .Ed[place]ma [place], [place] [address] [place] [address] [address] [place] [phone] Social History Tobacco Use Types Packs/Day Years [...] do you attend orthodoxy or Never 2018 voodoo services? Do you belong to any clubs or No 02/26/2019 organizations such as orthodoxy groups, unions, fraternal or athletic groups, or [...] morning before LEVOTHROID) 25 mcg breakfast. tablet nitroglycerin Place 0.4 mg under the 0 (NITROSTAT) 0.4 mg SL tongue every 5 (five) tablet minutes as needed for chest pain. rizatriptan (MAXALT) 5 Take 1 tablet (5 mg 9 tablet 0 06/22 mg tablet total) by mouth as needed for migraine. simvastatin (ZOCOR) 20 Take 1 tablet (20 mg 0 mg tablet total) by mouth at bedtime. Hyperlipidemia DULoxetine (CYMBALTA) Take 1 capsule (30 mg [...] management as per previous homegoing care plan. documented as of this encounter Plan of [...] documented as of this encounter Care Teams Boarding Mother Relationship Specialty Start Date End Date Elsewhere, Pcp PCP - General Internal Medicine 07/27/18 documented as of this encounter
--- OUTSIDE RECORDS SUMMARY | 2022-01-03 11:02 | XMS_ITS | Encounter Summary ---
:1955 Author Organization [facility] Address [address] [place] [address] Care Team Providers Name Role Phone Elsewhere, Pcp Primary Care Provider Unavailable Encounter Details Date Type Department Care Team Description 10/22/2018 Clinical Communication Department of Marley Cooper Cardiovascular Medicine D in [facility] [phone] [address] [facility] (Work) [place] [address] Social History Tobacco Use Types Packs/Day [...] do you attend baptism or Never 2018 church services? Do you belong to any clubs [...] documented as of this encounter Care Teams Coating Mixer Supervisor Relationship Specialty Start Date End Date Elsewhere, Pcp PCP - General Internal Medicine 07/27/18 documented as of this encounter
--- OUTSIDE RECORDS SUMMARY | 2022-01-03 11:02 | XMS_ITS | Encounter Summary ---
:1955 Author Organization [facility] Address [address] [place] [address] Care Team Providers Name Role Phone Elsewhere, Pcp Primary Care Provider Unavailable Encounter Details Date Type Department Care Team Description 10/20/2018 Hospital Encounter Department of Siontis, Flutter Atrial (HCC); Cardiovascular Diseases Porfirio, Thr ombus Atrial (HCC); in 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 Do you belong to any clubs or No 02/26/2019 organizations such as latter-day groups, unions, fraSpace[employer], [employer] or athletic groups, or school groups? [...] by mouth at bedtime. Hyperlipidemia acetaminophen Take 650 mg by mouth 0 [...] XT) 360 mg daily. 24 hr capsule DULoxetine (CYMBALTA) Take 1 capsule (30 mg [...] Take 1 tablet (40 mg 0 07/06/2018 09 /06/2018 (PROTONIX) 40 mg EC total) by mouth [...] Flutter Atrial (HCC) Results for this CLINIC PHOTOGRAPH TINTER CDT Thrombus Atrial procedure are in (HCC) the results Acute On Chronic section. Combined Systolic (Congestive) And Diastolic (Congestive) Heart Failure (HCC) documented in this encounter Results HOLTER MONITOR - IN CLINIC PHOTOGRAPH TINTER (10/20/2018 12:14 PM CDT) [facility] gist Method Time Signature VT Runs 0 count HOLTER SENTINEL VE Total Beats 1 count HOLTER SENTINEL VE Percent 0 percent HOLTER Beats SENTINEL VE Max Per [id number] HOLTER Hour Time SENTINEL VE Max Per 1 count HOLTER Hour SENTINEL Tachycardia 0 count HOLTER Runs SENTINEL SVT Runs 3 count HOLTER SENTINEL SVT Max Rate 123 bpm HOLTER SENTINEL SVE Total 3,120 count HOLTER Beats SENTINEL SVE Percent 4 percent HOLTER Beats SENTINEL SVE Max Per [id number] HOLTER Hour Time SENTINEL SVE Max Per 809 count HOLTER Hour SENTINEL Recording Date HOLTER SENTINEL Holter Pauses 0 count HOLTER SENTINEL Min Heart Rate [id number] HOLTER Time SENTINEL Min Heart Rate 40 bpm HOLTER SENTINEL Mean Heart 58 bpm HOLTER Rate SENTINEL Max Heart Rate [id number] HOLTER Time SENTINEL Max Heart Rate 73 [...] documented as of this encounter Care Teams Consumer Affairs Specialist Relationship Specialty Start Date End Date Elsewhere, Pcp PCP - General Internal Medicine 07/27/18 documented as of this encounter
--- OUTSIDE RECORDS SUMMARY | 2022-01-03 11:02 | XMS_ITS | Encounter Summary ---
:1955 Author Organization [facility] Address [address] [place] [address] Care Team Providers Name Role Phone Elsewhere, Pcp Primary Care Provider Unavailable Reason for Referral Outpatient (Routine) - Closed Specialty Diagnoses / Referred By Referred To Cont act Procedures Contact Gastroenterology and Diagnoses Abnormal Liver Function Test Nelly [facility] Hepatology Bess Monroy [address] [place] [address] Referral ID Status Reason Start Date Expiration Date Visits Requ ested Visits Authorized [id number] Closed 10/21/2018 10/21/2019 1 1 Reason for Visit Outpatient (Routine) - Closed Specialty Diagnoses / Procedures Referred By Contact Refer red To Contact Cardiovascular Disease Nelly Renton Guanaco Monroy M.D. [address] [place] [address] Referral ID Status Reason Start Date Expiration Date Visits Requ ested Visits Authorized [id number] Closed 09/14/2018 09/14/2019 1 1 Encounter Details Date Type Department Care Team Description 10/21/2018 Office Visit Department of Nelly Flutter Atrial (HCC) (Primary Dx); Cardiovascular Medicine Ayaka Monroy ormal Liver Function Test in Clarissa Velasco M.D. 200 [facility] [address] [place] [phone] [place], [place] [phone] Social History Tobacco Use Types Packs/Day Years [...] or relatives? How often do you attend mandaeism or Never 2018 denominational services? Do you belong to any clubs or No 02/26/2019 organizations such as mandaeism groups, unions, fraternal or athletic groups, or [...] regurgitation.She had a most recent admission to [facility] in June for recurrent atrial flutter [...] >=60 11/25/2018 Black/ mL/min/BSA 12:49 PM CDT Togolese Comment: ----ADDITIONAL INFORMATION---- Estimated GFR calculated using [...] Organization Address City/State/ZIP Code Phon e Number [facility] - [address] [place], [place] [address] [facility] (ABNORMAL) Hepatic Function Panel (11/25/2018 11:07 AM CDT) [facility] Method Time Signature Bilirubin, Total, S 0.4 [...] Organization Address City/State/ZIP Code Phon e Number [facility] - [address] [place], [place] [address] [facility] (ABNORMAL) PT (Prothrombin Time) with INR (11/25/2018 11:07 AM CDT) [facility] Method Time Signature Prothrombin 38.4 (H) 9.4 [...] M.D. LAB BLOOD ADD-ON Performing Organization Address [facility]/ZIP Code Phon e Number [facility] - [address] (ABNORMAL) CBC without Differential (11/25/2018 11:07 AM CDT) [facility] gist Method Time Signature Hemoglobin 14.8 [...] M.D. LAB BLOOD ADD-ON Performing Organization Address City/[facility]/ZIP Code Phon e Number [facility] - [address] [place] Abdomen Complete (11/25/2018 10:35 AM [...] documented as of this encounter Care Teams Probation Manager Relationship Specialty Start Date End Date Elsewhere, Pcp PCP - General Internal Medicine 07/27/18 documented as of this encounter
--- OUTSIDE RECORDS SUMMARY | 2022-01-03 11:02 | XMS_ITS | Encounter Summary ---
:1955 Author Organization [facility] Address [address] [place] [address] Care Team Providers Name Role Phone Elsewhere, Pcp Primary Care Provider Unavailable Encounter Details Date Type Department Care Team Description 12/11/2018 Hospital Encounter Department of Joseph Verduzco Abnormal Liver Function Test; Laboratory Medicine Becki Caballero, Abnormal Levels Of Other Serum Enzymes and Pathology, Luan Pham. [address], [address] [place] [id number] [phone] Social History Tobacco Use Types Packs/Day Years [...] do you attend religious or Never 2018 anglican services? Do you [...] Test procedure are in the results section. [id number] Routine 12/11/2018 10:44 Abnormal Liver Re sults [...] Transglutaminase), Antibody, IgA (12/11/2018 10:44 AM CDT) [facility] gist Method Time Signature Tissue <1.2 <4.0 12/11/2018 Transglutaminase Ab, (Negative 10:12 PM CDT IgA, S ) U/mL Specimen Anatomical Collection Method Collection Time Receive d Time (Source) Location / / Volume Laterality Blood 12/11/2018 10:44 12/11/2018 5:00 AM CDT PM CDT Joseph Pham M.D. LAB BLOOD ADD-ON Performing Organization Address City/State/ZIP Code Phon e Number [facility] [address] [place], [place] [address] [facility] (ABNORMAL) CMP (Comprehensive [...] >=60 12/11/2018 Black/ mL/min/BSA 12:17 PM CDT [place]ese Comment: ----ADDITIONAL INFORMATION---- Estimated GFR calculated using [...] M.D. LAB BLOOD ADD-ON Performing Organization Address City/[facility] Phon e Number [facility] - [address] [place] [address] [address] [facility] Ceruloplasmin (12/11/2018 10:44 AM CDT) P athologist Signature Ceruloplasmin, 31.7 20.0 - 51.0 12/11/2018 S mg/dL 12:35 PM CDT Specimen Anatomical Collection Method Collection Time Receive d Time (Source) Location / / Volume Laterality Blood (Blood, 12/11/2018 10:44 12/11/2018 Venous) AM CDT 11:57 AM CDT Joseph Pham M.D. LAB BLOOD ADD-ON Performing Organization Address [facility] Phon e Number [facility] - [address] (ABNORMAL) MELINDA (Antinuclear Antibodies) (12/11/2018 10:44 [...] M.D. LAB BLOOD ADD-ON Performing Organization Address City/[facility]/ZIP Code Phon e Number [facility] [address] [place] [address] 05 [facility] Hepatitis A IgG Ab, [...] - B LOOD ORDERABLES Performing Organization Address [facility] Phon e Number [address] [place] [address] [facility] Smooth Muscle Antibodies (12/11/2018 10:44 AM CDT) athologist [facility] Smooth Muscle Negative Negative 12/12/2018 Antibody, S 2:49 PM CDT Comment: ----ADDITIONAL INFORMATION---- This test was developed and its performa nce characteristics determined by [facility] in a manner consistent with CLIA requirements. This test has not been cleared or approved by the [place] d and Drug Administration. Specimen Anatomical Collection Method Collection Time Receive d Time (Source) Location / / Volume Laterality Blood (Blood, 12/11/2018 10:44 12/11/2018 2:40 Venous) AM CDT PM CDT Joseph Pham M.D. LAB BLOOD ADD-ON Performing Organization Address City/[facility] Phon e Number [facility] [address] [place] [address] [facility] HCV Ab Scrn w/Reflex to HCV PCR, Serum (12/11/2018 10:44 AM CDT) athologist [facility] HCV Ab Screen, Negative Negative 12/11/2018 S 3:47 PM CDT Comment: Ducuvs-yg-apqljh ratio is <1.00 . Specimen Anatomical Collection Method Collection Time Receive d Time (Source) Location / / Volume Laterality Blood (Blood, 12/11/2018 10:44 12/11/2018 2:30 Venous) AM CDT PM CDT Joseph Candida Pham M.D. LAB MICROBIOLOGY - B LOOD ORDERABLES Performing Organization Address [facility] Phon e Number [address] [place] [address] [facility] HBc Total Ab, Serum [...] - B LOOD ORDERABLES Performing Organization Address [facility] Phon e Number [address] [place] [address] [facility] Hepatitis B Surface Antigen (12/11/2018 10:44 AM CDT) P athologist Signature HBs Antigen, S Negative Negative 12/11/2018 3:29 PM CDT Specimen Anatomical Collection Method Collection Time Receive d Time (Source) Location / / Volume Laterality Blood (Blood, 12/11/2018 10:44 12/11/2018 2:30 Venous) AM CDT PM CDT Joseph Pham M.D. LAB MICROBIOLOGY - B LOOD ORDERABLES Performing Organization Address [facility] Phon e Number [address] [place] [address] [facility] Immunoglobulin M (IgM) (12/11/2018 10:44 AM CDT) [facility] gist Method Time Signature Immunoglobulin M 74 37 - 286 12/11/2018 (IgM), S mg/dL 5:00 PM CDT Specimen Anatomical Collection Method Collection Time Receive d Time (Source) Location / / Volume Laterality Blood (Blood, 12/11/2018 10:44 12/11/2018 2:37 Venous) AM CDT PM CDT Joseph Pham M.D. LAB BLOOD ADD-ON Performing Organization Address [facility] Code Phon e Number [address] [place] [address] [facility] Immunoglobulin G (IgG) (12/11/2018 10:44 AM CDT) Patholo gist Method Time Signature Immunoglobulin G 1190 767 - 1590 12/11/2018 (IgG), S mg/dL 4:59 PM CDT Specimen Anatomical Collection Method Collection Time Receive d Time (Source) Location / / Volume Laterality Blood (Blood, 12/11/2018 10:44 12/11/2018 2:37 Venous) AM CDT PM CDT Joseph Pham M.D. LAB BLOOD ADD-ON Performing Organization Address [facility] Phon e Number [address] [place] [address] [facility] HBs Antibody, Serum (12/11/2018 [...] - B LOOD ORDERABLES Performing Organization Address [facility] Phon e Number [address] [place] [address] [facility] (ABNORMAL) Celiac Disease Serology [place] (12/11/2018 10:44 AM CDT) Component Value Ref [...] M.D. LAB BLOOD ADD-ON Performing Organization Address [facility] Phon e Number [address] [place] [address] [facility] Lzncm-0-Doaowptgynm Phenotype (12/11/2018 10:44 AM CDT) P athologist Signature Hiant-6-Lzeqjzf 131 100 - 190 12/11/2018 psin, S mg/dL 3:46 PM CDT Xcjlw-4-Xuudzqg MM bands 12/14/2018 psin Phenotype 3:10 PM CDT Comment: A single M isoform is detected. In the c ontext of a normal rvxue-1-fopsscwmess concentration, this is consistent with an MM phenotype. Specimen Anatomical Collection Method Collection Time Receive d Time (Source) Location / / Volume Laterality Blood (Blood, 12/11/2018 10:44 12/11/2018 2:37 Venous) AM CDT PM CDT Joseph Pham M.D. LAB BLOOD ADD-ON Performing Organization Address City/[facility] Phon e Number [address] [place] [address] [facility] Mitochondrial Antibodies (M2) (12/11/2018 [...] M.D. LAB BLOOD ADD-ON Performing Organization Address City/[facility]/ZIP Code Phon e Number [facility] [address] [place], [place] [address] [facility] Iron and [...] City/State/ZIP Code Phon e Number [facility] - [address] [place] [address] [address] [facility] Ferritin (12/11/2018 10:44 AM CDT) athologist Signature Ferritin, S 63 11 - 307 12/11/2018 mcg/L 12:15 PM CDT Specimen Anatomical Collection Method Collection Time Receive d Time (Source) Location / / Volume Laterality Blood (Blood, 12/11/2018 10:44 12/11/2018 Venous) AM CDT 11:05 AM CDT Joseph Pham M.D. LAB BLOOD ADD-ON Performing Organization Address City/[facility]/ZIP Code Phon e Number [facility] - [address] [place] [address] [address] [facility] CBC without Differential (12/11/2018 10:44 [...] City/State/ZIP Code Phon e Number [facility] - [address] [place] [address] [address] [facility] documented in this encounter Visit Diagnoses Diagnosis Abnormal Liver Function Test Abnormal Levels Of Other Serum Enzymes documented in this encounter Additional Health Concerns Assessment Noted Time PHQ-9 Depression Total Score: 11 05/04/2013 4:05 PM CS T documented as of this encounter Care Teams Supervisor Carpenters Relationship Specialty Start Date End Date Elsewhere, Pcp PCP - General Internal Medicine 07/27/18 documented as of this encounter
--- OUTSIDE RECORDS SUMMARY | 2022-01-03 11:02 | XMS_ITS | Encounter Summary ---
:1955 Author Organization [facility] Address [address] [place] [address] Care Team Providers Name Role Phone Elsewhere, Pcp Primary Care Provider Unavailable Encounter Details Date Type Department Care Team Description 11/25/2018 Hospital Encounter Department of Siontis, Abnormal Liver Laboratory Medicine Branden Monroy Test and PathologyBess Jasper, in [address] [place], [place] [address] [facility] [address] [place], [place] [phone] [address] (Work) [phone] Social History Tobacco Use Types Packs/Day Years [...] do you attend methodist or Never 2018 adventism services? Do you belong to any clubs or No 02/26/2019 organizations such as methodist groups, unions, [email or web address] or athletic groups, or school groups? How [...] tablet total) by mouth at bedtime. Hyperlipidemia aspirin [address] Take 81 mg [...] >=60 11/25/2018 Black/ mL/min/BSA 12:49 PM CDT Bangladeshi Comment: ----ADDITIONAL INFORMATION---- Estimated GFR calculated using [...] Address City/State/ZIP Code Phon e Number [facility] - [address] [place] [address] 05 [facility] (ABNORMAL) Hepatic Function Panel (11/25/2018 11:07 AM [...] M.D. LAB BLOOD ADD-ON Performing Organization Address [facility] Phon e Number [facility] - [address] (ABNORMAL) PT (Prothrombin Time) with INR (11/25/2018 11:07 AM CDT) [facility] Gnam[place]nam Method Time Signature Prothrombin 38.4 (H) 9.4 [...] M.D. LAB BLOOD ADD-ON Performing Organization Address City/[facility] Phon e Number [facility] - [address] (ABNORMAL) CBC without Differential (11/25/2018 11:07 AM CDT) [facility] [place]nam[place]nam Method Time Signature Hemoglobin 14.8 11.6 - [...] Address City/State/ZIP Code Phon e Number [facility] - [address] [place] [address] 05 [facility] documented in this encounter Visit Diagnoses Diagnosis Abnormal Liver Function Test documented in this encounter Additional Health Concerns Assessment Noted Time PHQ-9 Depression Total Score: 11 05/04/2013 4:05 PM CS T documented as of this encounter Care Teams Insulator Technician Relationship Specialty Start Date End Date Elsewhere, Pcp PCP - General Internal Medicine 07/27/18 documented as of this encounter
--- OUTSIDE RECORDS SUMMARY | 2022-01-03 11:02 | XMS_ITS | Encounter Summary ---
:1955 Author Organization [facility] Address [address] [place] [address] Care Team Providers Name Role Phone Elsewhere, Pcp Primary Care Provider Unavailable Encounter Details Date Type Department Care Team Description 10/20/2018 Hospital Encounter Department of Sondra Villegas On Chronic Cardiovascular Diseases Archana Monroy bined Systolic in [facility] nasim Kellogg (Congestive) And [address] [facility] [address] [facility] Diastolic [place], [place] (Congestive) Heart [id number] Failure (HCC) [phone] Social History Tobacco Use Types Packs/Day Years [...] do you attend methodist or Never 2018 pentecostalism services? Do you belong to any clubs [...] ECHO DOPPLER COLOR (10/20/2018 2:26 PM CDT) [facility] gist Method Time Signature Ejection Fraction 55 [...] motion abnormalities, estimated ejection fraction 55% with ceba-uw-pper variability. 3. Mild right ventricular enlargement wi [...] ventricular ejection fra ction 55 % with tuve-ff-iatw variability. ??No regional wall motion abnormalities. ??Indetermina [...] motion abnormalities, estimated ejection fraction 55% with qpri-fc-qvab variability. 3. Mild right ventricular enlargement wi [...] ventricular ejection fra ction 55 % with czfo-ld-wats variability. No regional wall motion abnormalities. Indeterminate [...] documented as of this encounter Care Teams Extrusion Die Template Maker Relationship Specialty Start Date End Date Elsewhere, Pcp PCP - General Internal Medicine 07/27/18 documented as of this encounter
--- OUTSIDE RECORDS SUMMARY | 2022-01-03 11:02 | XMS_ITS | Encounter Summary ---
:1955 Author Organization [facility] Address [address] [place] [address] Care Team Providers Name Role Phone Elsewhere, Pcp Primary Care Provider Unavailable Reason for Referral Outpatient (Routine) - Closed Specialty Diagnoses / Procedures Referred By Contact Refer red To Contact [facility] Bess Monroy [address] [place] [address] Referral ID Status Reason Start Date Expiration Date Visits Requ ested Visits Authorized [id number] Closed 11/02/2018 11/02/2019 1 1 Scheduling Instructions With myself on 11/11 in the afternoon Encounter Details Date Type Department Care Team Description 11/02/2018 Orders Only Department of Cody Villegas Atrial (HCC) Cardiovascular Medicine Porfirio (Pr imary Dx) in [facility] nasim [place] [address] [facility] [address] [place], [place] [address] [place], [place] [phone] Social History Tobacco Use Types Packs/Day Years [...] do you attend alevism or Never 2018 confucianist services? Do you [...] ECG 12 Lead (11/25/2018 12:31 PM CDT) [facility] gist Method Time Signature Ventricular 96 BPM MUSE Rate ECG/Min QRSD Interval 98 ms MUSE QT Interval 274 ms MUSE QTC Interval 346 ms MUSE P [place] -106 degrees MUSE R [place] 99 degrees MUSE T Wave [place] -99 degrees MUSE CODED DIAGNOSIS Atrial MUSE [...] documented as of this encounter Care Teams Teletray Operator Relationship Specialty Start Date End Date Elsewhere, Pcp PCP - General Internal Medicine 07/27/18 documented as of this encounter
--- OUTSIDE RECORDS SUMMARY | 2022-01-03 11:02 | XMS_ITS | Encounter Summary ---
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) [facility] Cardiovascular Disease Luan Monroy [address] [place] [address] Referral ID Status Reason Start Date Expiration Date Visits Requ ested Visits Authorized [id number] Closed 09/14/2018 09/14/2019 1 1 Encounter Details Date Type Department Care Team Description 10/21/2018 Comprehensive Visit Department of Javier Kaiser Acute O n Chronic Combined Systolic (Congestive) And Diastolic (Congestive) Heart Failure (HCC) (Primary Dx); Cardiovascular Bess Salinas Apnea Sleep Obstructive; Medicine in [address] Flutter Atrial (HCC); [facility] Hypertensive Heart Disease With Heart Fa ilure (HCC); [address] [facility], Thrombus Atrial (HCC); [facility] Diabetes Melli tus Type 2 Without Complication (HCC); [id number] Hyperlipidemia On Treatment; [phone] Other Dyspnea (Work) Social History Tobacco Use [...] do you attend voodoo or Never 2018 mosque services? Do you [...] PRESENT ILLNESS I interviewed and examined Ms. Metcafl and reviewed management plans with Dr. Degroot. [...] file Gets together: Not on file Attends mosque service: Not on file Active member of [...] evaluated locally and she was admitted to [place] June 22 for AFib with RVR and [...] juice discharge June. Patient was here at [facility] for an additional opinion when she [...] file Gets together: Not on file Attends mosque service: Not on file Active member of [...] motion abnormalities, estimated ejection fraction 55% with lpfj-mg-zmdn variability. 3. Mild right ventricular enlargement with [...] appendage emptying velocity 31 cm/sec. 3. No wbeso-pv-kiox shunt at atrial level at rest or [...] ECHO DOPPLER COLOR (10/20/2018 2:26 PM CDT) [facility] Method Time Signature Ejection Fraction 55 [...] motion abnormalities, estimated ejection fraction 55% with fdys-jp-sokg variability. 3. Mild right ventricular enlargement wi [...] ventricular ejection fra ction 55 % with rqfb-js-syqo variability. ??No regional wall motion abnormalities. ??Indetermina [...] For the complete report, see the Order-L evVoluntis Documents below. Final Impressions 1. Technically challenging examination. Please see comments. 2. Normal left ventricular chamber size, no regional wall motion abnormalities, estimated ejection fraction 55% with kjob-do-vcdc variability. 3. Mild right ventricular enlargement wi [...] ventricular ejection fra ction 55 % with nziy-dq-xohd variability. No regional wall motion abnormalities. Indeterminate [...] documented as of this encounter Care Teams Emergency Medicine Nurse Practitioner Relationship Specialty Start Date End Date Elsewhere, Pcp PCP - General Internal Medicine 07/27/18 documented as of this encounter
--- OUTSIDE RECORDS SUMMARY | 2022-01-03 11:02 | XMS_ITS | Encounter Summary ---
:1955 Author Organization [facility] Address [address] [place] [address] Care Team Providers Name Role Phone Elsewhere, Pcp Primary Care Provider Unavailable Encounter Details Date Type Department Care Team Description 10/20/2018 Hospital Encounter Department of Siontis, Flutter Atrial (HCC); Laboratory Medicine Alise Monroyu s Atrial (HCC); and Pathology, M.DEdilma Acute On Chronic Combined Systolic (Adonis estive) And Diastolic (Congestive) Heart Failure (HCC) [facility] in [address] [place] [address] [place] [address] [place], [place] [phone] [address] (Work) [phone] Social History Tobacco Use Types Packs/Day Years [...] or relatives? How often do you attend temple or Never 2018 mosque services? Do you belong to any clubs or No 02/26/2019 organizations such as temple groups, unions, fraHennessey Wellness or athletic groups, or school groups? How [...] Systolic (Congestive) And Diastolic (Congestive) Heart Failure ([facility]) CBC WITH DIFFERENTIAL, Routine 10/20/2018 3:02 PM Flutter Atri al Results for this B CDT (HCC) procedure are in Thrombus Atrial the results (HCC) section. Acute On Chronic Combined Systolic (Congestive) And Diastolic (Congestive) Heart Failure ([facility]) COMPREHENSIVE Routine 10/20/2018 3:02 PM Flutter Atrial Result s for this METABOLIC PANEL, S/P CDT (HCC) procedure are in Thrombus Atrial the results (HCC) section. Acute On Chronic Combined Systolic (Congestive) And Diastolic (Congestive) Heart Failure ([facility]) documented in this encounter Results (ABNORMAL) CBC with Differential, Blood (10/20/2018 3:02 PM CDT) [facility] Time Signature Hemoglobin 12.9 11.6 - 10/20/2018 [...] [facility] - [address] [place], [place] [address] [facility] (ABNORMAL) PT (Prothrombin Time) with INR (10/20/2018 3:02 PM CDT) [facility] Method Time Signature Prothrombin 25.4 (H) 9.4 [...] [facility] - [address] [place], [place] [address] [facility] (ABNORMAL) CMP (Comprehensive Metabolic Panel) [...] >=60 10/20/2018 Black/ mL/min/BSA 4:05 PM CDT Guatemalan Comment: ----ADDITIONAL INFORMATION---- Estimated GFR calculated using [...] [facility] - [address] documented in this encounter Visit Diagnoses Diagnosis Flutter Atrial (HCC) Thrombus Atrial (HCC) Acute On Chronic Combined Systolic (Adonis estive) And Diastolic (Congestive) Heart Failure (HCC) documented in this encounter Additional Health Concerns Assessment Noted Time PHQ-9 Depression Total Score: 11 05/04/2013 4:05 PM CS T documented as of this encounter Care Teams Problem Manager Relationship Specialty Start Date End Date Elsewhere, Pcp PCP - General Internal Medicine 07/27/18 documented as of this encounter
--- OUTSIDE RECORDS SUMMARY | 2022-01-03 11:02 | XMS_ITS | Encounter Summary ---
:1955 Author Organization [facility] Address [address] [place] [address] Care Team Providers Name Role Phone Elsewhere, Pcp Primary Care Provider Unavailable Encounter Details Date Type Department Care Team Description 12/01/2018 Clinical Communication Department of [facility] TeresaJuanita post, [facility] [address] [place] [address] [address] [place] [address] [phone] Social History Tobacco Use Types Packs/Day Years [...] or relatives? How often do you attend mormon or Never 2018 orthodox services? Do you belong to any clubs or No 02/26/2019 organizations such as mormon groups, unions, fraternal or athletic groups, or [...] 10:59 AM CDT Call to Ms. Metcalf ([phone]) following up to last week's missed phone appointment. Left message requesting call back to [phone]. [Based on appointment referral and chart notes, [...] documented as of this encounter Care Teams Clinical Advisor Relationship Specialty Start Date End Date Elsewhere, Pcp PCP - General Internal Medicine 07/27/18 documented as of this encounter
--- OUTSIDE RECORDS SUMMARY | 2022-01-03 11:02 | XMS_ITS | Encounter Summary ---
:1955 Author Organization [facility] Address [address] [place] [address] Care Team Providers Name Role Phone Elsewhere, Pcp Primary Care Provider Unavailable Reason for Referral Outpatient (Routine) - Closed Specialty Diagnoses / Procedures Referred By Contact Refer red To Contact Cardiovascular Disease Nelly [place] Guanaco Monroy M.D. 200 [place] [address] Referral ID Status Reason Start Date Expiration Date Visits Requ ested Visits Authorized [id number] Closed 11/25/2018 11/25/2019 1 1 Reason for Visit Outpatient (Routine) - Closed Specialty Diagnoses / Procedures Referred By Contact Reggie harris To Contact Cardiovascular Tip Villegas [place] Guanaco Monroy M.D. 200 [place] [address] Referral ID Status Reason Start Date Expiration Date Visits Requ ested Visits Authorized [id number] Closed 11/02/2018 11/02/2019 1 1 Encounter Details Date Type Department Care Team Description 11/25/2018 Office Visit Department of Nelly, Thrombus Atria l (HCC) (Primary Dx); Cardiovascular Medicine Lynette Monroy tter Atrial (HCC) in [facility] nasim Kellogg 200 [facility] 200 [place] [address] [place], [place] [phone] Social History Tobacco Use Types Packs/Day Years [...] to have moderate to severe mitralregurgitation. A MICAHEL prior to planned cardioversion in June 2018 [...] is telling me that her power of research attorney is her oldest son; however, it is unclear whether this has been finalized legally. I will request a consult by a social science manager to assist in those decisions. We will [...] member who is legally her power of research attorney. The patient also has a Hepatology Clinic [...] ventricul ar ejection fraction 55 % with hiyp-au-bsou variability. RIGHT VENTRICLE: ??Mild right ventricul ar [...] performed at the request of the primary well service floor worker. ??Adult probe inserted without difficulty. ??Procedure performed [...] Sedation Narrator or other pertinent record in [facility] for additional procedure and sedation in formation. 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 4. Estimated left ventricular ejection f raction 55 % with fitq-el-kakq variability. 5. Tiny pericardial effusion around the [...] 7. Please refer to the report of [facility] MICHAEL from July 01 2018 and [...] ventricular ejection f raction 55 % with mppd-jz-fbur variability. 5. Tiny pericardial effusion around the [...] 7. Please refer to the report of [facility] MICHAEL from July 01 2018 and [...] left ventricular ejection fraction 55 % with nzny-at-sfip variability. RIGHT VENTRICLE: Mild right ventricular enlargement. [...] performed at the request of the primary well service floor worker. Adult pr obe inserted without difficulty. Procedure [...] documented as of this encounter Care Teams Risk Reduction Counselor Relationship Specialty Start Date End Date Elsewhere, Pcp PCP - General Internal Medicine 07/27/18 documented as of this encounter
--- OUTSIDE RECORDS SUMMARY | 2022-01-03 11:02 | XMS_ITS | Encounter Summary ---
:1955 Author Organization [facility] Address [address] [place] [address] Care Team Providers Name Role Phone Elsewhere, Pcp Primary Care Provider Unavailable Encounter Details Date Type Department Care Team Description 12/04/2018 Clinical Communication Department of [facility] TeresaJuanita post, [facility] [address] [place] [address] [address] [place] [address] [phone] Social History Tobacco Use Types Packs/Day Years [...] do you attend sikhism or Never 2018 gnosticist services? Do you [...] emergency contact. Of note, Ramin's correct contact [facility]: [phone]. Alternative number listed ([phone]) is an invalid number. Ramin resides in [place] and would try to make sure I'm [...] assisting her as able. Ramin resides in [place] and would try to make sure I'm available to attend appointments with her. I explained I was requested to call due to concern from [facility] that Ms. Metcalf may not be fully capable of making an informed decision regarding pacemaker surgery being suggested. Ramin states his mother does not have any formal decision maker in place, and does not have any advanced directive or powerof medical technologist forms completed. I provided education on health care advanced directives and mailed the [facility] Advanced Health Care Directive materials to Ramin's home to review with his mother. Ramin states patient is currently living at [facility]. He does not say how long she has been there. He states they have been working on transition to a long term facility, however they need to be able to handle her medical condition before she can be transferred. I explained that the staff at [facility] could also provide and review an advanced [...] documented as of this encounter Care Teams Visual Effects Artist Relationship Specialty Start Date End Date Elsewhere, Pcp PCP - General Internal Medicine 07/27/18 documented as of this encounter
--- OUTSIDE RECORDS SUMMARY | 2022-01-03 11:02 | XMS_ITS | Encounter Summary ---
:1955 Author Organization [facility] Address [address] [place] [address] Care Team Providers Name Role Phone Elsewhere, Pcp Primary Care Provider Unavailable Encounter Details Date Type Department Care Team Description 11/26/2018 Clinical Communication Department of [facility], Work in [facility], M .S[facility] [address] [place] [address] [address] [place] [phone] [phone] Social History Tobacco Use Types Packs/Day Years [...] do you attend judaism or Never 2018 yazdanism services? Do you [...] documented as of this encounter Care Teams Early Childhood Teacher Assistant Relationship Specialty Start Date End Date Elsewhere, Pcp PCP - General Internal Medicine 07/27/18 documented as of this encounter
--- OUTSIDE RECORDS SUMMARY | 2022-01-03 11:02 | XMS_ITS | Encounter Summary ---
:1955 Author Organization [facility] Address [address] [place] [address] Care Team Providers Name Role Phone Elsewhere, Pcp Primary Care Provider Unavailable Reason for Visit Outpatient (Routine) - Closed Specialty Diagnoses / Referred By Referred To Cont act Procedures Contact Gastroenterology and Diagnoses Abnormal Liver Function Test [facility] Hepatology Bess Monroy [address] [place] [address] Referral ID Status Reason Start Date Expiration Date Visits Requ ested Visits Authorized [id number] Closed 10/21/2018 10/21/2019 1 1 Encounter Details Date Type Department Care Team Description 12/11/2018 Comprehensive Visit Division of Lele Villegas M.D. [address] [place] [phone] Abnormal Liver Function Test; Gastroenterology in Joseph Verduzco M.B.B.S., Bess [address] [place] [address] Abnormal Levels Of Other Serum Enzymes [place], [place] [address] [place] [address] Social History Tobacco Use Types Packs/Day Years [...] do you attend jainism or Never 2018 caodaism services? Do you [...] past. She was recently admitted to the [facility] in June 2012 showed atrial flutter. She was then transferred to [facility] for further management. Echocardiogram in on June [...] Inhale 1 puff daily. Asthma 07/06/18 Bella Danielson P.A.-C., M.S. furosemide (LASIX) 20 mg tablet [...] file Gets together: Not on file Attends caodaism service: Not on file Active member of [...] Dr. Verduzco's note. CT CT Job ID: [id number] documented in this encounter Plan of Treatment [...] >=60 12/11/2018 Black/ mL/min/BSA 12:17 PM CDT Armenian Comment: ----ADDITIONAL INFORMATION---- Estimated GFR calculated using [...] M.D. LAB BLOOD ADD-ON Performing Organization Address [facility]/ZIP Code Phon e Number [facility] - 200 [place] [address] [facility] Ceruloplasmin (12/11/2018 10:44 AM CDT) P athologist Signature Ceruloplasmin, 31.7 20.0 - 51.0 12/11/2018 S mg/dL 12:35 PM CDT Specimen Anatomical Collection Method Collection Time Receive d Time (Source) Location / / Volume Laterality Blood (Blood, 12/11/2018 10:44 12/11/2018 Venous) AM CDT 11:57 AM CDT Joseph Pham M.D. LAB BLOOD ADD-ON Performing Organization Address City/[facility] Code Phon e Number [facility] - [address] [place] [address] [facility] [employer] [facility] [employer] (ABNORMAL) MELINDA (Antinuclear Antibodies) (12/11/2018 10:44 AM [...] M.D. LAB BLOOD ADD-ON Performing Organization Address City/[facility]/ZIP Code Phon e Number [facility] [address] [place], [place] [address] [facility] Hepatitis A [...] - B LOOD ORDERABLES Performing Organization Address [facility] Phon e Number [place] [phone] [place] [address] [facility] Smooth Muscle Antibodies (12/11/2018 10:44 AM CDT) athologist Signature Smooth Muscle Negative Negative 12/12/2018 Antibody, S 2:49 PM CDT Comment: ----ADDITIONAL INFORMATION---- This test was developed and its performa nce characteristics determined by [facility] in a manner consistent with CLIA requirements. This test has not been cleared or approved by the [place] d and Drug Administration. Specimen Anatomical Collection Method Collection Time Receive d Time (Source) Location / / Volume Laterality Blood (Blood, 12/11/2018 10:44 12/11/2018 2:40 Venous) AM CDT PM CDT Joseph Pham M.D. LAB BLOOD ADD-ON Performing Organization Address [facility] Phon e Number [address] [place] [address] [facility] HCV Ab Scrn w/Reflex to HCV PCR, Serum (12/11/2018 10:44 AM CDT) P athologist Signature HCV Ab Screen, Negative Negative 12/11/2018 S 3:47 PM CDT Comment: Uvkyfh-hp-hwrbvw ratio is <1.00 . Specimen Anatomical Collection Method Collection Time Receive d Time (Source) Location / / Volume Laterality Blood (Blood, 12/11/2018 10:44 12/11/2018 2:30 Venous) AM CDT PM CDT Joseph Pham M.D. LAB MICROBIOLOGY - B LOOD ORDERABLES Performing Organization Address City/State/ZIP Code Phon e Number [facility] [address] [place] [address] [facility] HBc Total Ab, Serum (12/11/2018 10:44 AM CDT) athologist Signature HBc Total Ab, Negative Negative 12/11/2018 S 3:47 PM CDT Specimen Anatomical Collection Method Collection Time Receive d Time (Source) Location / / Volume Laterality Blood (Blood, 12/11/2018 10:44 12/11/2018 2:30 Venous) AM CDT PM CDT Joseph Pham M.D. LAB MICROBIOLOGY - B LOOD ORDERABLES Performing Organization Address [facility] Code Phon e Number [address] [place] [address] [facility] Hepatitis B Surface Antigen (12/11/2018 10:44 AM CDT) athologist Signature HBs Antigen, S Negative Negative 12/11/2018 3:29 PM CDT Specimen Anatomical Collection Method Collection Time Receive d Time (Source) Location / / Volume Laterality Blood (Blood, 12/11/2018 10:44 12/11/2018 2:30 Venous) AM CDT PM CDT Joseph Pham M.D. LAB MICROBIOLOGY - B LOOD ORDERABLES Performing Organization Address City/[facility]/ZIP Code Phon e Number [address] [place], [place] [address] [facility] Immunoglobulin M (IgM) (12/11/2018 10:44 AM CDT) [facility] Method Time Signature Immunoglobulin M 74 37 - 286 12/11/2018 (IgM), S mg/dL 5:00 PM CDT Specimen Anatomical Collection Method Collection Time Receive d Time (Source) Location / / Volume Laterality Blood (Blood, 12/11/2018 10:44 12/11/2018 2:37 Venous) AM CDT PM CDT Joseph Pham M.D. LAB BLOOD ADD-ON Performing Organization Address City/[facility]/ZIP Code Phon e Number [address] EDDIE Velasco [facility] 05 [facility] Immunoglobulin G (IgG) (12/11/2018 10:44 AM CDT) Patholo gist Method Time Signature Immunoglobulin G 1190 767 - 1590 12/11/2018 (IgG), S mg/dL 4:59 PM CDT Specimen Anatomical Collection Method Collection Time Receive d Time (Source) Location / / Volume Laterality Blood (Blood, 12/11/2018 10:44 12/11/2018 2:37 Venous) AM CDT PM CDT Joseph Pham M.D. LAB BLOOD ADD-ON Performing Organization Address [facility] Phon e Number [facility] [address] [place] [address] 05 [facility] HBs Antibody, Serum (12/11/2018 10:44 AM [...] - B LOOD ORDERABLES Performing Organization Address [facility] Phon e Number [facility] [address] [place] [address] [facility] (ABNORMAL) Celiac Disease Serology Clare (12/11/2018 10:44 AM CDT) Component Value Ref [...] M.D. LAB BLOOD ADD-ON Performing Organization Address [facility] Phon e Number [address] [place] [address] 05 [facility] Jawvn-6-Byxmzniehai Phenotype (12/11/2018 10:44 AM CDT) P athologist Signature Xdxvc-3-Bfkulvu 131 100 - 190 12/11/2018 psin, S mg/dL 3:46 PM CDT Hegub-1-Enesukw MM bands 12/14/2018 psin Phenotype 3:10 PM CDT Comment: A single M isoform is detected. In the c ontext of a normal gtjzr-8-ydheafjhhbk concentration, this is consistent with an MM phenotype. Specimen Anatomical Collection Method Collection Time Receive d Time (Source) Location / / Volume Laterality Blood (Blood, 12/11/2018 10:44 12/11/2018 2:37 Venous) AM CDT PM CDT Joseph Pham M.D. LAB BLOOD ADD-ON Performing Organization Address [facility] Phon e Number [address] [place] [address] [facility] Mitochondrial Antibodies (M2) (12/11/2018 [...] M.D. LAB BLOOD ADD-ON Performing Organization Address City/[facility]/ZIP Code Phon e Number [facility] [address] [place] [address] [facility] Iron and Total Iron-Binding [...] M.D. LAB BLOOD ADD-ON Performing Organization Address City/[facility]/ZIP [facility] Phon e Number [facility] - [address] [place] [address] [employer] [facility] [employer] Ferritin (12/11/2018 10:44 AM CDT) athologist Signature Ferritin, S 63 11 - 307 12/11/2018 mcg/L 12:15 PM CDT Specimen Anatomical Collection Method Collection Time Receive d Time (Source) Location / / Volume Laterality Blood (Blood, 12/11/2018 10:44 12/11/2018 Venous) AM CDT 11:05 AM CDT Joseph Pham M.D. LAB BLOOD ADD-ON Performing Organization Address City/[facility] Code Phon e Number [facility] - [address] [place] [address] [facility] CBC without Differential (12/11/2018 10:44 AM CDT) [...] [facility] - [address] documented in this encounter Visit Diagnoses Diagnosis Abnormal Liver Function Test Abnormal Levels Of Other Serum Enzymes documented in this encounter Additional Health Concerns Assessment Noted Time PHQ-9 Depression Total Score: 11 05/04/2013 4:05 PM CS T documented as of this encounter Care Teams Radiology Asst Relationship Specialty Start Date End Date Elsewhere, Pcp PCP - General Internal Medicine 07/27/18 documented as of this encounter
--- OUTSIDE RECORDS SUMMARY | 2022-01-03 11:03 | XMS_ITS | Encounter Summary ---
:1955 Author Organization [facility] Address [address] [place] [address] Care Team Providers Name Role Phone Vianney Barrera APRN, C.NEdilmaPEdilma, M.S.N. Primary Care Provider [phone] Reason for Visit Appointment Request (Routine) - Closed Specialty Diagnoses / Procedures Referred By Contact Refer red To Contact Community Internal Medicine Referral ID Status Reason Start Date Expiration Date Visits Requ ested Visits Authorized [id number] Closed 07/06/2018 07/06/2019 1 1 Encounter Details Date Type Department Care Team Description 07/08/2018 External Outreach Division of [place] Keyes ([facility]) (Primary Dx); Community Internal Della Leon, Thrombus Atrial ([facility]); Medicine, Herb Marshall, B.ChEdilma, Hypertensi ve Heart Disease With Heart Failure ([facility]); [facility] in Bess Mann Diabetes Mellitus Type 2 Without Complic ation ([facility]); [place], [facility] Migraine Headache; [place], [place] Hyperlipidemia On Treatment; [address] [facility] [address] Fibromyalgia; [place], [place] [phone] Other Specifie d Anxiety Disorders; [address] (Work) Apnea Sleep Obstructive; [phone] Gastroesophagea l Reflux Disease Without Esophagitis; (Fax) [...] do you attend buddhism or Never 2018 restoration services? Do you [...] seen today [facility] an [facility] ([facility] HISTORY OF PRESENT ILLNESS Ms. Metcalf is 63 years old and lives in [place]. She has multiple medical comorbidities including recurrent [...] were reviewed and updated as appropriate in [facility]:allergies, current medications, medical/surgical history, social history, and [...] breath., Disp: 1 Inhaler, Rfl: 11 ??? jzwrbjf-amtlkbiodrxiw-eypaffic (EXCEDRIN MIGRAINE) 250-250-65 mg per tablet, Take [...] Flutter Atrial (HCC) Overview: -admitted at the [facility] from 06/22/2018 - 06/23/2018, where [...] as of this encounter Care Teams Product Manager E Commerce Relationship Specialty Start Date End Date Vianney Barrera APRN, C.N.P., PCP - General Internal Medicine 07/06/18 07/26/18 M.S.N. [address] [place] [address] documented as of this encounter
--- OUTSIDE RECORDS SUMMARY | 2022-01-03 11:03 | XMS_ITS | Encounter Summary ---
:1955 Author Organization [facility] Address [address] [place] [address] Care Team Providers Name Role Phone Vianney Barrera APRN, C.N.P., M.S.N. Primary Care Provider [phone] Encounter Details Date Type Department Care Team Description 07/07/2018 Documentation Division of [facility] Vianney Barrera APRN , Internal Medicine, Herb France, M.S.NEdilma [facility], in [address] [place] [address] [place] [address] [phone] Social History Tobacco Use Types Packs/Day Years [...] often do you attend mormonism or Never 12/06/ 2019 jewish services? Do you belong to any [...] p.o. daily RECHECK INR: 07/09/2018; POC at [facility] documented in this encounter Plan of Treatment Not on filedocumented as of this encounter Visit Diagnoses Not on filedocumented in this encounter Additional Health Concerns Assessment Noted Time PHQ-9 Depression Total Score: 11 05/04/2013 4:05 PM CS T documented as of this encounter Care Teams Detective Automobile Section Relationship Specialty Start Date End Date Vianney Barrera APRN, C.N.P., PCP - General Internal Medicine 07/06/18 07/26/18 M.S.N. [address] [place] [address] documented as of this encounter
--- OUTSIDE RECORDS SUMMARY | 2022-01-03 11:03 | XMS_ITS | Encounter Summary ---
:1955 Author Organization [facility] Address [address] [place] [address] Care Team Providers Name Role Phone Vianney Barrera APRN, C.NJordy, M.S.N. Primary Care Provider [phone] Reason for Visit Reason Comments Anticoagulation Encounter Details Date Type Department Care Team Description 07/20/2018 Documentation Division of Community Bruce, Vianney Caballero APRN , Anticoagulation Internal Medicine, C.N.P., M.S.N . [facility] in [address] [place] [address] [place] [address] [phone] Social History Tobacco Use Types Packs/Day Years [...] do you attend taoist or Never 2018 temple services? Do you belong to any clubs or No 02/26/2019 organizations such as taoist groups, unions, fraternal or athletic groups, or [...] until INR>2.5 RECHECK INR: 07/22/2018; POC at [facility] documented in this encounter Plan of Treatment Not on filedocumented as of this encounter Visit Diagnoses Not on filedocumented in this encounter Additional Health Concerns Assessment Noted Time PHQ-9 Depression Total Score: 05/04/2013 4:05 PM CS T documented as of this encounter Care Teams Stereotype Caster Relationship Specialty Start Date End Date Vianney Barrera APRN, C.N.P., PCP - General Internal Medicine 07/06/18 07/26/18 M.S.N. [address] [place] [address] documented as of this encounter
--- OUTSIDE RECORDS SUMMARY | 2022-01-03 11:03 | XMS_ITS | Encounter Summary ---
:1955 Author Organization [facility] Address [address] [place] [address] Care Team Providers Name Role Phone Vianney Barrera APRN, C.N.P., M.S.N. Primary Care Provider [phone] Reason for Visit Reason Comments Anticoagulation Encounter Details Date Type Department Care Team Description 07/17/2018 Documentation Division of [facility] Internal Medicine, Romy Fernández APRN, [facility], in C.N.P. [place], [place] [address] [place] [phone] Social History Tobacco Use Types Packs/Day [...] do you attend methodist or Never 2018 zoroastrian services? Do you belong to any clubs [...] p.o. daily RECHECK INR: 07/20/2018; POC at [facility] documented in this encounter Plan of Treatment Not on filedocumented as of this encounter Visit Diagnoses Not on filedocumented in this encounter Additional Health Concerns Assessment Noted Time PHQ-9 Depression Total Score: 11 05/04/2013 4:05 PM CS T documented as of this encounter Care Teams Recoil Spring Winder Relationship Specialty Start Date End Date Vianney Barrera APRN, C.N.P., PCP - General Internal Medicine 07/06/18 07/26/18 M.S.N. [address] [place] [address] documented as of this encounter
--- OUTSIDE RECORDS SUMMARY | 2022-01-03 11:03 | XMS_ITS | Encounter Summary ---
:1955 Author Organization [facility] Address [address] [place] [address] Care Team Providers Name Role Phone Vianney Barrera APRN, C.NJordy, M.S.N. Primary Care Provider [phone] Encounter Details Date Type Department Care Team Description 07/23/2018 External Outreach Division of Diana Gabriel Flucaitliner Atrial ([facility]); Community Internal D, P.A.-C. Hypertensive Heart Disease With Heart Fa ilure ([facility]); [facility] [address] [place] [address] Thrombus Atrial ([facility]) [facility], in [facility] [address] [place] [phone] [place] [address] (Work) [place], [place] [phone] (Fax) [phone] Social History Tobacco Use Types Packs/Day Years [...] do you attend yazdanism or Never 2018 restorationist services? Do you belong to any clubs [...] P.A.-C. - 07/23/2018 2:13 PM CDT REFERRAL [facility] CHIEF COMPLAINT/PURPOSE OF VISIT Discharge from [facility] (Short-term rehab) HISTORY OF PRESENT ILLNESS Ms. Metcalf is a 63 y.o. woman, recently hospitalized June 29 - 2018, related to recurrent atrial flutter. Patient discharged to [facility] for short-term rehabilitation. Patient has now completed goals of therapy and is planning to discharge back to her home in [place] on July 25, 2018. #1 Flutter Atrial (HCC) Overview: -admitted at the [facility] from 06/22/2018 - 06/23/2018, [...] to discharge back to her home in [place], [place] on 07/24/18, where she resides with [...] a front-wheeled walker. Have asked the facility Counterperson to set the patient up with home health services/OT prior to her discharge, as patient did not appear to be cognizant of the providers for these services. Did stress the importance of following up with both the in-home OT as recommended, and followup with PCP. Recommend patient followup with her primary care provider at [facility] in approximately 2 weeks for continued care. [...] documented as of this encounter Care Teams Log Handling Equipment Operator Relationship Specialty Start Date End Date Vianney Barrera APRN, C.N.P., PCP - General Internal Medicine 07/06/18 07/26/18 M.S.N. [address] [place] [address] documented as of this encounter
--- OUTSIDE RECORDS SUMMARY | 2022-01-03 11:03 | XMS_ITS | Encounter Summary ---
:1955 Author Organization [facility] Address [address] [place] [address] Care Team Providers Name Role Phone Vianney Barrera APRN, C.N.P., M.S.N. Primary Care Provider [phone] Reason for Visit Reason Comments Anticoagulation Encounter Details Date Type Department Care Team Description 07/09/2018 Documentation [facility] Internal Medicine, Romy Fernández APRN, [facility], in C.N.P. [place], [place] [address] [place] [phone] Social History Tobacco Use Types Packs/Day [...] do you attend rastafari or Never 2018 confucianist services? Do you [...] p.o. daily RECHECK INR: 07/13/2018; POC at [facility] documented in this encounter Plan of Treatment Not on filedocumented as of this encounter Visit Diagnoses Not on filedocumented in this encounter Additional Health Concerns Assessment Noted Time PHQ-9 Depression Total Score: 11 05/04/2013 4:05 PM CS T documented as of this encounter Care Teams Graduate Advisor Relationship Specialty Start Date End Date Vianney Barrera APRN, C.N.P., PCP - General Internal Medicine 07/06/18 07/26/18 M.S.N. [address] [place] [address] documented as of this encounter
--- OUTSIDE RECORDS SUMMARY | 2022-01-03 11:03 | XMS_ITS | Encounter Summary ---
:1955 Author Organization [facility] Address [address] [place] [address] Care Team Providers Name Role Phone Vianney Barrera APRN C.N.P., M.S.N. Primary Care Provider [phone] Reason for Visit Reason Comments Anticoagulation management Encounter Details Date Type Department Care Team Description 07/22/2018 Documentation Division of Reny Gabriel [facility] Internal D, P.A.-C. [facility] [address] [place] [address] in [facility] [address] [place] [phone] [place] [address] (Work) [place], [place] [phone] (Fax) [phone] Social History Tobacco Use Types Packs/Day Years [...] do you attend mandaen or Never 2018 adventist services? Do you [...] documented as of this encounter Care Teams Jewel Staker Relationship Specialty Start Date End Date Vianney Barrera APRN, C.N.P., PCP - General Internal Medicine 07/06/18 07/26/18 M.S.N. [address] [place] [address] documented as of this encounter
--- OUTSIDE RECORDS SUMMARY | 2022-01-03 11:03 | XMS_ITS | Encounter Summary ---
:1955 Author Organization [facility] Address [address] [place] [address] Care Team Providers Name Role Phone Elsewhere, Pcp Primary Care Provider Unavailable Reason for Visit Reason Onset Date Comments Appointment 09/15/2018 Encounter Details Date Type Department Care Team Description 09/15/2018 Clinical Communication Department of Manisha Villegas [facility] nasim [facility] [address] [facility] [address] [place] [address] [place], [place] [phone] Social History Tobacco Use Types Packs/Day Years [...] do you attend mosque or Never 2018 yazidism services? Do you belong to any clubs [...] CDT Hi, I got a call from [facility] by a Sierra. She was calling this patient's appts. She was wondering if the patient can come on a and Friday? Can you please call her back [phone]. Thanks I didn't know if there was any notes on this pt. documented in this encounter Plan of Treatment Not on filedocumented as of this encounter Visit Diagnoses Not on filedocumented in this encounter Additional Health Concerns Assessment Noted Time PHQ-9 Depression Total Score: 11 05/04/2013 4:05 PM CS T documented as of this encounter Care Teams Oxyacetylene Burner Relationship Specialty Start Date End Date Elsewhere, Pcp PCP - General Internal Medicine 07/27/18 documented as of this encounter
--- OUTSIDE RECORDS SUMMARY | 2022-01-03 11:03 | XMS_ITS | Encounter Summary ---
:1955 Author Organization [facility] Address [address] [place] [address] Care Team Providers Name Role Phone Elsewhere, Pcp Primary Care Provider Unavailable Reason for Referral Outpatient (Routine) - Closed Specialty Diagnoses / Referred By Contact Referred To Contact Procedures Cardiovascular Diseases / Diagnoses Flutter Atrial (HCC) 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) [facility] Disease Luan Monroy 200 [place] [address] Referral ID Status Reason Start Date Expiration Date Visits Requ ested Visits Authorized [id number] Closed 09/14/2018 09/14/2019 1 1 Outpatient (Routine) - Closed Specialty Diagnoses / Procedures Referred By Contact Refer red To Contact [facility] Bess Monroy 200 [place] [address] Referral ID Status Reason Start Date Expiration Date Visits Requ ested Visits Authorized [id number] Closed 09/14/2018 09/14/2019 1 1 Scheduling Instructions With myself in 1 month on a friday af ternoon Reason for Visit Outpatient (Routine) - Closed Specialty Diagnoses / Referred By Contact Referred To Contact Procedures Cardiovascular Diseases / Diagnoses Flutter Atrial (HCC) Oralia Ricks, [facility] Cardiovascular Disease Dulce SARABIA [address] [place] [address] Referral ID Status Reason Start Date Expiration Date Visits Requ ested Visits Authorized [id number] Closed 07/03/2018 07/03/2019 1 1 Encounter Details Date Type Department Care Team Description 09/14/2018 Comprehensive Visit Department of Shobha, Flutter Atrial (HCC) (Primary Dx); Cardiovascular Medicine Gurjit Gutiérrez Atrial (HCC); in [facility] nasim RendonS. 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 Do you [...] June she was again admitted, thistime at [facility] with recurrent atrial flutter with RVR. A [...] care. Since discharge from the hospital at [place], she had another brief admission elsewherefor recurrent [...] when she returns. CT CT Job ID: [id number] documented in this encounter Plan of Treatment [...] with Differential, Blood (10/20/2018 3:02 PM CDT) [facility] Method Time Signature Hemoglobin 12.9 11.6 [...] M.D. LAB BLOOD ADD-ON Performing Organization Address [facility] Phon e Number [facility] - [address] [place] [phone] [facility] (ABNORMAL) PT (Prothrombin Time) with INR (10/20/2018 [...] M.D. LAB BLOOD ADD-ON Performing Organization Address [facility] Code Phon e Number [facility] - [address] [place] [phone] [facility] (ABNORMAL) CMP (Comprehensive Metabolic Panel) (10/20/2018 3:02 [...] >=60 10/20/2018 Black/ mL/min/BSA 4:05 PM CDT Panamanian Comment: ----ADDITIONAL INFORMATION---- Estimated GFR calculated using [...] City/State/ZIP Code Phon e Number [facility] - [address] [place], [place] [address] [facility] HOLTER MONITOR - IN CLINIC TOOL CRIB LEAD (10/20/2018 12:14 PM CDT) [facility] gist Method Time Signature VT Runs 0 count HOLTER SENTINEL VE Total Beats 1 count HOLTER SENTINEL VE Percent 0 percent HOLTER Beats SENTINEL VE Max Per [id number] HOLTER Hour Time SENTINEL VE Max Per [...] 0 count HOLTER SENTINEL Min Heart Rate [id number] HOLTER Time SENTINEL Min Heart Rate 40 bpm HOLTER SENTINEL Mean Heart 58 bpm HOLTER Rate SENTINEL Max Heart Rate [id number] HOLTER Time SENTINEL Max Heart Rate 73 [...] emptying veloci ty 31 cm/sec. 3. No cbmxz-tq-zlqk shunt at atrial leve l at rest [...] saline in jection(s) performed during sedation. ??No zmcnd-vr-bcgg shunt at atrial level at rest or with Va lsalva release. ??The left atrial appendage thrombus is no longer seen. A tiny mobile echodensit y is now seen which has similar tissue density to the surrounding myocardium. Differential inc ludes tiny organized thrombus vs normal left atrial appendage trabeculation. ??No pericardia l effusion. ??PROCEDURE ??Transesophageal echocardiogram performed at the request of the primary appliance service representative. ??Adult probe inserted without difficulty. [...] Sedation Narrator or other pertinent record in [facility] for addit ional procedure and sedation [...] emptying veloci ty 31 cm/sec. 3. No lyqvt-oe-thmn shunt at atrial leve l at rest [...] saline inje ction(s) performed during sedation. No hdpee-sj-hocv shunt at atrial level at rest or with Va lsalva release. The left atrial appendage thrombus is no longer seen. A tiny mobile echodensit y is now seen which has similar tissue density to the surrounding myocardium. Differential inc ludes tiny organized thrombus vs normal left atrial appendage trabeculation. No pericardial effusion. PROCEDURE Transesophageal echocardiogram performed at the request of the primary appliance service representative. Adult probe inserted without difficulty. [...] Sedation Narrator or other pertinent record in [facility] for addit ional procedure and sedation [...] documented as of this encounter Care Teams Body Shop Floorperson Relationship Specialty Start Date End Date Elsewhere, Pcp PCP - General Internal Medicine 07/27/18 documented as of this encounter
--- OUTSIDE RECORDS SUMMARY | 2022-01-03 11:03 | XMS_ITS | Encounter Summary ---
:1955 Author Organization [facility] Address [address] [place] [address] Care Team Providers Name Role Phone Vianney Barrera APRN, C.N.P., M.S.N. Primary Care Provider [phone] Reason for Visit Reason Onset Date Comments Please call to verify Jail Discharge 07/20/2018 Encounter Details Date Type Department Care Team Description 07/20/2018 Clinical Communication Division of Vianney Barrera Plea se call to [facility] Internal Dulce SARABIA, verify [facility], in [address] [place] [address] [place] [address] [place], [place] (Work) [phone] Social History Tobacco Use Types Packs/Day Years [...] do you attend denominational or Never 2018 spiritism services? Do you [...] PM CDT Patient is to discharge from [facility] on 07/[facility], communication was shared on 07/20 with the desk staff to fax an updated appointment guide to the facility. Patient is not on the Pending [facility] SN[facility] list. Update PCP/ Report/ Registry and remove Comment and Patient type. documented in this encounter Plan of Treatment Not on filedocumented as of this encounter Visit Diagnoses Not on filedocumented in this encounter Additional Health Concerns Assessment Noted Time PHQ-9 Depression Total Score: 11 05/04/2013 4:05 PM CS T documented as of this encounter Care Teams City Auditor Relationship Specialty Start Date End Date Vianney Barrera APRN, C.N.P., PCP - General Internal Medicine 07/06/18 07/26/18 M.S.N. [address] [place] [address] documented as of this encounter
--- OUTSIDE RECORDS SUMMARY | 2022-01-03 11:03 | XMS_ITS | Encounter Summary ---
:1955 Author Organization [facility] Address [address] [place] [address] Care Team Providers Name Role Phone Vianney Barrera APRN, C.N.P., M.S.N. Primary Care Provider [phone] Reason for Visit Reason Comments Anticoagulation Encounter Details Date Type Department Care Team Description 07/24/2018 Documentation Division of [facility] Internal Medicine, Romy Fernández APRN, [facility], in C.N.P. [place], [place] [address] [place] [phone] Social History Tobacco Use Types Packs/Day [...] do you attend mandaeism or Never 2018 taoism services? Do you [...] be discharging from [facility] 07/25/2018, she needs to have next INR scheduled through primary care provider. INR due 07/27/2018. documented in this encounter Plan of Treatment Not on filedocumented as of this encounter Visit Diagnoses Not on filedocumented in this encounter Additional Health Concerns Assessment Noted Time PHQ-9 Depression Total Score: 11 05/04/2013 4:05 PM CS T documented as of this encounter Care Teams Heat Treating Bluer Relationship Specialty Start Date End Date Vianney Barrera APRN, C.N.P., PCP - General Internal Medicine 07/06/18 07/26/18 M.S.N. [address] [place] [address] documented as of this encounter
--- OUTSIDE RECORDS SUMMARY | 2022-01-03 11:03 | XMS_ITS | Encounter Summary ---
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 Do you belong to any clubs or No 02/26/2019 organizations such as rastafari groups, unions, fraOrthocone or athletic groups, or school groups? How [...] emptying veloci ty 31 cm/sec. 3. No ozlvi-it-nxsq shunt at atrial leve l at rest [...] saline in jection(s) performed during sedation. ??No izdwl-iz-rtfk shunt at atrial level at rest or with Va lsalva release. ??The left atrial appendage thrombus is no longer seen. A tiny mobile echodensit y is now seen which has similar tissue density to the surrounding myocardium. Differential inc ludes tiny organized thrombus vs normal left atrial appendage trabeculation. ??No pericardia l effusion. ??PROCEDURE ??Transesophageal echocardiogram performed at the request of the primary medical customer service representative. ??Adult probe inserted without difficulty. [...] Sedation Narrator or other pertinent record in [facility] for addit ional procedure and sedation information. [...] emptying veloci ty 31 cm/sec. 3. No cfyxa-in-btrq shunt at atrial leve l at rest [...] saline inje ction(s) performed during sedation. No aejtj-ul-zqly shunt at atrial level at rest or with Va lsalva release. The left atrial appendage thrombus is no longer seen. A tiny mobile echodensit y is now seen which has similar tissue density to the surrounding myocardium. Differential inc ludes tiny organized thrombus vs normal left atrial appendage trabeculation. No pericardial effusion. PROCEDURE Transesophageal echocardiogram performed at the request of the primary medical customer service representative. Adult probe inserted without difficulty. [...] Sedation Narrator or other pertinent record in [facility] for addit ional procedure and sedation [...] documented as of this encounter Care Teams Process Mold Technician Relationship Specialty Start Date End Date Elsewhere, Pcp PCP - General Internal Medicine 07/27/18 documented as of this encounter
--- OUTSIDE RECORDS SUMMARY | 2022-01-03 11:03 | XMS_ITS | Encounter Summary ---
:1955 Author Organization [facility] Address [address] [place] [address] Care Team Providers Name Role Phone Vianney Barrera APRN, C.NMarcel., M.S.N. Primary Care Provider [phone] Reason for Visit Reason Comments Anticoagulation Encounter Details Date Type Department Care Team Description 07/13/2018 Documentation Division of [facility] Bruce, Vianney Caballero APRN , Anticoagulation Internal Medicine, C.N.P., M.S.N . [facility] in [address] [place] [address] [place] [address] [phone] Social History Tobacco Use Types Packs/Day Years [...] do you attend moravian or Never 2018 lutheran services? Do you [...] mg daily RECHECK INR: 07/15/2018; POC at [facility] documented in this encounter Plan of Treatment Not on filedocumented as of this encounter Visit Diagnoses Not on filedocumented in this encounter Additional Health Concerns Assessment Noted Time PHQ-9 Depression Total Score: 11 05/04/2013 4:05 PM CS T documented as of this encounter Care Teams Arts Manager Relationship Specialty Start Date End Date Vianney Barrera APRN, C.N.P., PCP - General Internal Medicine 07/06/18 07/26/18 M.S.N. [address] [place] [address] documented as of this encounter
--- OUTSIDE RECORDS SUMMARY | 2022-01-03 11:03 | XMS_ITS | Encounter Summary ---
:1955 Author Organization [facility] Address [address] [place] [address] Care Team Providers Name Role Phone Vianney Barrera APRN, C.NJordy, M.S.N. Primary Care Provider [phone] Reason for Visit Reason Comments Anticoagulation Encounter Details Date Type Department Care Team Description 07/15/2018 Documentation Division of Community Bruce, Vianney Caballero APRN , Anticoagulation Internal Medicine, C.N.P., M.S.N . [facility] in [address] [place] [address] [place] [address] [phone] Social History Tobacco Use Types Packs/Day Years [...] do you attend nondenominational or Never 2018 confucianist services? Do you [...] p.o. daily RECHECK INR: 07/17/2018; POC at [facility] documented in this encounter Plan of Treatment Not on filedocumented as of this encounter Visit Diagnoses Not on filedocumented in this encounter Additional Health Concerns Assessment Noted Time PHQ-9 Depression Total Score: 11 05/04/2013 4:05 PM CS T documented as of this encounter Care Teams Calculus Tutor Relationship Specialty Start Date End Date Vianney Barrera APRN, C.N.P., PCP - General Internal Medicine 07/06/18 07/26/18 M.S.N. [address] [place] [address] documented as of this encounter
--- OUTSIDE RECORDS SUMMARY | 2022-01-03 11:03 | XMS_ITS | Encounter Summary ---
:1955 Author Organization [facility] Address [address] [place] [address] Care Team Providers Name Role Phone Vianney Barrera APRN, C.N.P., M.S.N. Primary Care Provider [phone] Encounter Details Date Type Department Care Team Description 07/07/2018 Orders Only Division of [facility] Vianney Barrera APRN, Internal Medicine, Herb France, M.S.NEdilma [facility], in [address] [place] [address] [place] [address] [phone] Social History Tobacco Use Types Packs/Day Years [...] do you attend adventist or Never 2018 latter-day services? Do you belong to any clubs or No 02/26/2019 organizations such as adventist groups, unions, fraternal or athletic groups, or [...] documented as of this encounter Care Teams Citrus Peeler Relationship Specialty Start Date End Date Vianney Barrera APRN, C.N.PEdilma, PCP - General Internal Medicine 07/06/18 07/26/18 M.S.N. [address] [place] [address] documented as of this encounter
--- OUTSIDE RECORDS SUMMARY | 2022-01-03 11:03 | XMS_ITS | Encounter Summary ---
:1955 Author Organization [facility] Address [address] [place] [address] Care Team Providers Name Role Phone Elsewhere, Pcp Primary Care Provider Unavailable Encounter Details Date Type Department Care Team Description 09/01/2018 Clinical Communication Department of Antelmo Richey Cardiovascular Medicine Stacy, Tara Quan in [place] [facility] rotary surface grinder [address] [facility] [address] [place] [address] [phone] Social History Tobacco Use Types Packs/Day Years [...] do you attend bahai or Never 2018 congregation services? Do you [...] documented as of this encounter Care Teams Fitting Room Operator Relationship Specialty Start Date End Date Elsewhere, Pcp PCP - General Internal Medicine 07/27/18 documented as of this encounter
--- OUTSIDE RECORDS SUMMARY | 2022-01-03 11:03 | XMS_ITS | Encounter Summary ---
:1955 Author Organization [facility] Address [address] [place] [id number] Care Team Providers Name Role Phone Elsewhere, Pcp Primary Care Provider Unavailable Reason for Visit Reason Comments Medication Visit Encounter Details Date Type Department Care Team Description 07/20/2018 Documentation Division of [facility] Cathleen, Medication Visit Internal Medicine, Bess Diazwin, [facility], in [address] [place] [address] [place] [phone] [place] [address] [phone] Social History Tobacco Use Types Packs/Day Years [...] do you attend temple or Never 2018 adventism services? Do you belong to any clubs or No 02/26/2019 organizations such as temple groups, unions, fraternal or athletic groups, or [...] 11:39 PM CDT Contacted by Jyothi at [facility] for missed coumadin dose this last Friday. [...] documented as of this encounter Care Teams Audio Visual Facilities Engineer Relationship Specialty Start Date End Date Elsewhere, Pcp PCP - General Internal Medicine 07/27/18 documented as of this encounter
--- OUTSIDE RECORDS SUMMARY | 2022-01-03 11:03 | XMS_ITS | Encounter Summary ---
:1955 Author Organization [facility] Address [address] [place] [address] Care Team Providers Name Role Phone Vianney Barrera APRN C.N.P., M.S.N. Primary Care Provider [phone] Reason for Visit Reason Comments CTP Eligibility Encounter Details Date Type Department Care Team Description 07/07/2018 Patient Outreach Division of Palomo Hardy, CTP Eligibility Internal Medicine, [facility] in [address] [place] [phone] [place] [phone] Social History Tobacco Use Types Packs/Day Years [...] documented as of this encounter Care Teams Marine Engineer Cpvec Relationship Specialty Start Date End Date Vianney Barrera APRN C.N.P., PCP - General Internal Medicine 07/06/18 07/26/18 M.S.N. [address] [place] [phone] documented as of this encounter
--- OUTSIDE RECORDS SUMMARY | 2022-01-03 11:04 | XMS_ITS | Encounter Summary ---
:1955 Author Organization [facility] Address [address] [place] [address] Care Team Providers Name Role Phone Vianney Barrera APRN, C.N.P., M.S.N. Primary Care Provider [phone] Reason for Referral Outpatient (Routine) - Closed Specialty Diagnoses / Referred By Contact Referred To Contact Procedures Cardiovascular Diseases / Diagnoses Flutter Atrial (HCC) Oralia Ricks, [facility] Cardiovascular Disease [place], C.N.P. [address] [place] [phone] Referral ID Status Reason Start Date Expiration Date Visits Requ ested Visits Authorized [id number] Closed 07/03/2018 07/03/2019 1 1 Reason for Visit Reason Onset Date Comments Pre-visit Testing Orders 07/03/2018 Encounter Details Date Type Department Care Team Description 07/03/2018 Clinical Department of [facility] Pre-visit Test ing Communication Cardiovascular Oralia Hernandez, Orders Medicine in [place], C.N.P. [place], [place] [address] [place] [address] [place] [phone] Social History Tobacco Use Types Packs/Day Years [...] do you attend protestant or Never 2018 scientology services? Do you [...] documented as of this encounter Care Teams Health Screener Relationship Specialty Start Date End Date Vianney Barrera APRN, C.N.P., PCP - General Internal Medicine 07/06/18 07/26/18 M.S.N. [address] [place] [address] documented as of this encounter
--- OUTSIDE RECORDS SUMMARY | 2022-01-03 11:04 | XMS_ITS | Encounter Summary ---
:1955 Author Organization [facility] Address [address] [place] [address] Care Team Providers Name Role Phone Unavailable [...] do you attend hindu or Never 2018 buddhism services? Do you [...]
--- OUTSIDE RECORDS SUMMARY | 2022-01-03 11:04 | XMS_ITS | Encounter Summary ---
:1955 Author Organization [facility] Address [address] [place] [address] Care Team Providers Name Role Phone Vianney Barrera APRN, C.N.P., M.S.N. Primary Care Provider [phone] Encounter Details Date Type Department Care Team Description 06/29/2018 - Hospital Encounter [facility] Bola Ibarra M.B.B.S. [address] [place] [address] Flutter Atrial (HCC) (Primary Dx); 07/06/2018 [facility] Birgit, M.D. Decline Functional Status; [facility], Fourth Floor [address] [place] [phone] Social History Tobacco Use Types Packs/Day Years [...] do you attend shinto or Never 2018 adventist services? Do you [...] Petra Dillard M.D. Discharge Provider Team: T [facility] PRINCIPAL DIAGNOSIS Flutter Atrial (HCC) DISMISSAL DIAGNOSES [...] y.o. female who was admitted to the [facility] for management of atrial flutter. [...] weakness and decreased caregiver support at home. jail facility placement was recommended post-discharge. Social work assisted with discharge planning. Patient discharged in stable condition on 07/06/2018 to [facility]. DIAGNOSTIC TESTS EC07/03/2018 Atrial flutter with [...] warfarin Dixon Iris Celeste Home Medication Instructions THOMAS:[id number] Printed on:07/06/18 6399 Medication Information acetaminophen (TYLENOL) 500 mg tablet Take 2 tablets (1,000 mg total) by mouth every 6 (six) hours as needed for pain or fever. albuterol (PROAIR HFA) 90 mcg/actuation inhaler Inhale 1-2 puffs every 4 (four) hours as needed for shortness of breath. qxbkzey-pdabctbdmxmlp-ddnoxrap (EXCEDRIN MIGRAINE) 250-250-65 mg per tablet Take [...] atrial thrombus; INR goal 2.5-3.5. DISCHARGE DISPOSITION: Detention Facility [3] CONDITION ON DISCHARGE: Stable. DIET [...] AM CDT You were discharged from the [facility]. Please [...] on 07/02/2018 by Tommy Rogers Contact information: [facility], [address], 07/03/2018 I have reviewed & agree with analysis and recommendations; Ally Canela P.T., D.P.T. Discharge Instr - Non Sawyer Follow-UpsFoKellee perales - 07/01/2018 10:11 AM CDT * Take a copy of your dismissal paperwork with you to your appointments. * [facility] June: 11:00 a.m. - Dr. Radha Parish, care provider, hospital follow up visit, at [facility]. [facility], [place] You may have outpatient appointments at [facility] that changed during your hospitalization. Refer to your [facility] Patient Appointment Guide (PAG) for the most current schedule of appointments anddetails instructions of tests / procedures. Call [phone] if you did not receive a PAG or need to CANCEL any [facility] appointment(s). documented in this encounter Medications [...] 6 hours PRN 07/06/18 0841 07/06/18 0000 qumvpvv-zoduwqpstjbrt-jsdydsry (EXCEDRIN MIGRAINE) 250-250-65 mg per tablet 1-2 tablet oral As needed 07/06/18 0841 06/29/18 1816 acetaminophen tablet 1,000 mg (TYLENOL) Comments: Use for patients with no hepatic disease 1,000 mg oral Every 6 hours PRN 06/29/18 1817 Potentiating Start Dose/Rate Route Frequency Ordered Stop 07/06/18 0000 acetaminophen (TYLENOL) 500 mg tablet 1,000 mg oral Every 6 hours PRN 07/06/18 0841 07/06/18 0000 qeovfzq-vkegmjqzbsgai-mdeqesqu (EXCEDRIN MIGRAINE) 250-250-65 mg per tablet 1-2 [...] this finding with goal INR 2.5-3.5 per customer care consultant. INR is therapeutic at 2.7 after [...] per service. Valerie Myers, D., R.Ph. Contact [phone] with any questions about this note. Petra [...] this finding with goal INR 2.5-3.5 per customer care consultant. INR is therapeutic at 2.7 after [...] date/range tbd Lissette Breen, Pharm.DEdilma, R.Ph. Contact [phone] with any questions about this note. Petra [...] this finding with goal INR 2.5-3.5 per customer care consultant. Patient was taking rivaroxaban with last [...] date/range tbd Lissette Breen Pharm.D., R.Ph. Contact [phone] with any questions about this note. Petra Dillard M.D. - 07/03/2018 6:22 PM CDT I agree with the daily progress note, history, physical and management plan as outlined by Oralia Zhong with the below changes and additions. Mila Quezada L.I.C.S.W., M.S.W. - 07/03/2018 3:19 PM CDT SUBJECTIVE Referral Data Referral Source: Early Screen for Discharge Planning Referral Reason: Discharge Planning Discharge Planning: Detention Facility The patient was seen for ongoing discharge needs. A list of halfway facility options (that patient/family geographically resides or requests) has been provided to and reviewed with patient/family. Disclaimers: Financial disclosure provided informing patient of our ownership and financial relationship of the [facility]/home health & hospice agencies. Reviewed insurance coverage, provided patient with in-network options if applicable. Patient/family have indicated a preference for the facility/agency below. patient and family declined additional resources. Provided the patient with a referral update while her son was present. They agreed that their preference would be for [facility] [employer] as the son lives nearby. OBJECTIVE Anticipated [...] Address Phone Number Fax Number Kaity Oquendo [facility] [address] [facility] [address] [phone] Contact: nursing Transportation oxygen: No oxygen needed. PER KAITY OQUENDO: ?? Our pile driver operator will pick her at the EAST/PRU doors ??with our w/c on 07/06 at 10am. ?? The pile driver operator will bring a portable O2 tank for transport if needed. ?? The patient must have had a bowel movement within 24 hrs of discharge. ?? The dismissal summary and orders must include an MD signature on the day of discharge and a diagnosis with each medication ordered. A HEART NURSE signature is NOT acceptable. ?? Any substitutions of current IV, IM, oral and mist medication orders [facility] may potentiate cancellation of the admission. [...] WORK: - Pre-admission screen has been completed. ([id number]) - Will continue to follow. Adalberto aCstro, M.S.W. 07/03/2018 Tommy Rogers - 07/03/2018 1:22 [...] seated rest break. Training/Intervention: DGI-4, cues to poultry picker feet and step big Response: DGI-4: [...] developed in collaboration with the patient. Ally Caneal P.T., Pradeep.P.TSo Villasenor, Pharm.D., R.Ph. - 07/03/2018 [...] this finding with goal INR 2.5-3.5 per customer care consultant. Patient was taking rivaroxaban with last dose 4/9 at 1600. INR stagnant. Will in crease dose to 7.5mg. The pharmacist team will continue to follow patient's clinical progress daily until discharge from the hospital. When patient discharged, discharge plan is for discharge warfarin dose: tbd mg [facility] Hospital follow up tbd INR recheck date/range tbd So Jovel Pharm.D., R.Ph. Contact [phone] with any questions about this note. Oralia Ricks APRN, C.N.P. - 07/03/2018 7:42 AM CDT [facility] CARDIOLOGY INPATIENT PROGRESS NOTE SUBJECTIVE Ms. Metcalf [...] flutter. She is status post cardioversion in [place] and had some some issues with noncompliance [...] completed and skilled care was recommended. --social media director seeking skilled care placement VTE: Heparin IV GI: Pantoprazole Code Status: Full Code Disposition: Home - self care Oralia Ricks APRN, C.N.P. 07/03/18 [facility] Douglas Ibarra M.B.BEdilmaS. - 07/02/2018 5:46 PM CDT ASSESSMENT / PLAN Ms. Metcalf is qualified for a halfway facility. From a heart rhythm perspective, she [...] are no restrictions. CT CT Job ID: [id number] Priyanka Emerson R.N. - 07/02/2018 2:21 PM [...] with patient and go over dismissal options. Systems Lead will continue to follow if any needs [...] atrial appendage thrombus CT CT Job ID: [id number] So Jovel, Philomena., R.Ph. - 07/02/2018 8:18 [...] this finding with goal INR 2.5-3.5 per customer care consultant. Patient was taking rivaroxaban with last [...] date/range tbd So Jovel Pharm.D., R.Ph. Contact [phone] with any questions about this note. Oralia Ricks, NO, C.N.P. - 07/02/2018 7:08 AM CDT [facility] Heart [facility] CARDIOLOGY INPATIENT PROGRESS NOTE SUBJECTIVE Ms. Metcalf was seen and examined on morning rounds. She is alert and pleasant. She has no concerns. She reports that she will be staying with her youngest son in [place] for 2 weeks. TELEMETRY 138 Atrial flutter [...] flutter. She is status post cardioversion in [place] and had some some issues with noncompliance [...] of potassium --PM&R safety and cognitive evaluation --retinal angiographer is following closely for homegoing issues. VTE: Heparin IV GI: Pantoprazole Code Status: Full Code Disposition: Home - self care Oralia Ricks APRN, C.N.P. 07/02/18 [facility] Tommy Rogers - 07/01/2018 4:59 PM CDT [...] this finding with goal INR 2.5-3.5 per customer care consultant. Patient was taking rivaroxaban with last [...] date/range tbd So Jovel Pharm.D., R.Ph. Contact [phone] with any questions about this note. Markel [...] will proceed today. CT CT Job ID: [id number] Oralia Ricks APRN, C.N.P. - 07/01/2018 7:37 AM CDT T [facility] CARDIOLOGY INPATIENT PROGRESS NOTE SUBJECTIVE Ms. Metcalf [...] flutter. She is status post cardioversion in [place] and had some some issues with noncompliance [...] self care Oralia Ricks APRN, C.N.P. 07/01/18 [facility] Ken Tommy Federico - 06/30/2018 1:56 PM [...] Richey P.A.-C. - 06/30/2018 10:36 AM CDT [facility] CARDIOLOGY INPATIENT PROGRESS NOTE SUBJECTIVE Ms. Metcalf was seen and examined on morning rounds in conjunction with my customer care consultant Dr. Ibarra.Patient reports no events overnight. [...] admitted with flutter with rapid rates in [place] spontaneously converted to normal rhythm. She is [...] and diltiazem drip. CT CT Job ID: [id number] Antelmo Richey P.A.-C. - 06/29/2018 7:10 PM CDT Images from the original note were not included. CARDIOLOGY INPATIENT ADMISSION NOTE CHIEF COMPLAINT/REASON FOR VISIT Atrial flutter Collaborating physician: Douglas Ibarra M.B.B.S. Admitting service: [facility] HISTORY OF PRESENT ILLNESS Ms. Metcalf is a 63 y.o. female who presented to the [facility] for management of atrial flutter. She has medical comorbidities including, but not limited to: Atrial flutter, hypertension, hyperlipidemia, type 2 diabetes on metformin (A1c 6.5 on 05/11/2018), CHAPITO not using CPAP, iron deficiency anemia, depression with anxiety, migraine, mild persistent asthma, fibromyalgia, polypharmacy, migraine headaches. The patient was initially admitted at [facility] for management of paroxysmal atrial fibrillation with [...] every 4 (four) hours as needed. ??? dpqaolz-brxasrgzxxqxo-gpwvghgk (EXCEDRIN MIGRAINE) 250-250-65 mg per tablet, Take [...] to diltiazem. The patient has an elevated [id number] asc score for atrial fibrillation Stroke risk [...] questions answered. Outcome Measures Current ADL Status: [facility] Inpatient Short Form: Putting on and [...] CMS Modifier: CJ Interpretation: Clinicians answer the [facility] Inpatient Short Form based on observed [...] patient, including my status as a mandated deposition operator. Discussed the current discharge recommendation for rehab placement, which patient stated being agreeable to. She shared that if rehab is unable to be obtained, she would be able to stay with her son for a few weeks before returning home. A list of halfway facility options (that patient/family geographically resides or requests) has been provided to and reviewed with patient/family. Disclaimers: Financial disclosure provided informing patient of our ownership and financial relationship of the [facility] beds, home health, and hospice agencies. Reviewed insurance coverage, provided patient with in-network options if applicable. Patient was agreeable to the following referrals, which were sent on her behalf: [facility], [facility], [facility], and [facility]. Shared that social work would initiate those referrals, and would provide an update when responses are received from the facilities. DEMOGRAPHIC INFORMATION Referral Source: Early Screen for Discharge Planning Referral Reason: Discharge Planning Discharge Planning: Detention Facility Person(s) present during interview: Patient Primary care clinic and provider: [facility] / Dr. Kandace Mckeon Primary Language: Romansh Treater Services Used: No Citizenship: [place] Citizen Resident [...] disability, and the other son resides in [place] and is willing to have patient stay with him for a few weeks post-discharge. Support Systems: Children. We have not received permission to contact them. 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 Psychosocial Risk Factors impacting [...] Behavior: Forgetful Communication: Talks, Understands speaking, Understands Romansh It is anticipated that the patient will need assistance with Medication Set- up/Administration, Housekeeping, Transportation Use (drive car, use taxi/bus). ASSISTIVE DEVICES Patient has the following equipment: Walker, Grab Bars - Wall, Grab Bars - Toilet Patient anticipates potentially needing the following additional equipment: Walker, Grab Bars - Wall, Grab Bars - Toilet SOIL AND PLANT SCIENTIST Formal and Informal Resources: Home Health Care: [...] Planning Discussion/Education Options Provided REFERRALS: ?? [facility] ?? [facility] ?? [facility] ?? [facility] ?? [facility] ?? [facility] ?? [facility] PLAN ?? Motivation for treatment/plan: fair ?? [...] Prior Function / Occupational Profile Level of [place]: Independent with ADLs and functional transfers, Needs [...] clear leftlower extremity. Training/Intervention: MiniBEST-13, cues to poultry picker feet, assistantce at gait belt to [...] by the 3rd box when cue dot poultry picker feet. Patient reached max heart rate of 137 bpm following 10 meters of ambulation and began to feel symptoms of her heart racing. Education provided this session: continued ambulation with nursing while self- monitoring for symptoms of dyspnea with exertion; the benefits of halfway facilities and their role in therapy The patient/family educated on safe transfer techniques with functional mobility/activity. The following coordination of care occurred today: Contacted Patient's nurse and flour worker regarding discharge/safety recommendations, equipment needs/recommendations and [...] Who was present during the interview?: Patient Treater Services Used: No Patient Information Primary Caregiver: [...] Behavior: Forgetful Communication: Talks, Understands speaking, Understands Romansh Environmental Supports Home Environment: Apartment Anticipated Modifications [...] aide Home Care Agency Name : [facility] Anticipated Discharge Destination: Home-Health Care c Does the patient need discharge transport arranged?: No ASSESSMENT / PLAN ??Assessment: Met with the patient to discuss her prior level of care and home going needs. I reviewed my role of Systems Lead. Patient reviewed her current hospitalization and appears [...] support system; reviewing that her primary care companion is herself. She reports that she needs [...] weeks and is hoping tomove to [facility] in an assisted living facility. Patient did add that her son does work fulltime, so he will not be home to give her 24 hour assistance. I have a call into her son, Yaya to confirm a safe transition back to home. (JULIANNA on file) Son was unavailable, so I left a message. I will start the reconnection process with the [facility] company and follow up with the discharge plan later today. Spoke to patient's son, Yaya, about dismissal plan for patient, Yaya said patient was going to stay with him for a couple weeks and then go back home to [place]. Yaya said she does live with his [...] her to his home. 5. Reconnections needed [facility] Signed by: Priyanka Emerson R.N. 06/30/2018 documented in this encounter Nursing Notes Jessica Dominguze R.N. - 07/06/2018 9:27 AM CDT Report [...] from SNF about going there for rehab. Jesscia Dominguez RMary Ann - 07/03/2018 6:35 AM [...] female who [facility] for [facility] of atrial flutter. She has a past medical history of recurrent atrial flutter, hypertension, chronic diastolic heart failure, hyperlipidemia, depression with anxiety and dependent personality disorder. She was recently admitted at the [facility] from 06/22/2018 - 06/23/2018, where she was [...] weakness and decreased caregiver support at home. jail facility placement was recommended post-discharge. Social work assisted with discharge planning. Patient discharged in stable condition on 07/06/2018 to [facility]. documented in this encounter Plan of [...] CBC without Differential (07/06/2018 6:26 AM CDT) [facility] Method Time Signature Hemoglobin 12.8 11.6 - 07/06/2018 [facility] 15.0 g/dL 6:53 AM CDT [facility] Hematocrit 39.7 35.5 - 07/06/2018 [facility] 44.9 % 6:53 AM CDT [facility] Erythrocytes 4.55 3.92 - 07/06/2018 [facility] 5.13 6:53 AM CDT LAB[facility]ATORIES - x10(12)/L [facility] MCV 87.3 78.2 - 07/06/2018 [facility] 97.9 fL 6:53 AM CDT [facility] RBC Distrib 14.3 12.2 - 07/06/2018 [facility] Width 16.1 % 6:53 AM CDT [facility] Platelet Count 475 (H) 157 - 371 07/06/2018 [facility] x10(9)/L 6:53 AM CDT [facility] Leukocytes 9.8 (H) 3.4 - 9.6 07/06/2018 [facility] x10(9)/L 6:53 AM CDT [facility] Specimen Anatomical Collection Method Collection Time Receive d Time (Source) Location / / Volume Laterality Blood (Blood, 07/06/2018 6:26 AM 07/07/19 19 6:45 Venous) CDT AM CDT Oralia Ricks APRN, C.N.P. LAB BLOOD ADD-ON Performing Organization Address City/[facility] Phon e Number [facility]ORATORIES - [address] (ABNORMAL) Prothrombin Time (PT/INR) (07/06/2018 6:26 AM CDT) [facility] Method Time Signature Prothrombin 28.9 (H) 9.4 - 07/06/2018 [facility] Time, P 12.5 sec 7:06 AM CDT [facility] INR 2.6 0.9 - 1.1 07/06/2018 [facility] 7:06 AM CDT [facility] Comment: ----ADDITIONAL INFORMATION---- Standard intensity warfarin therapeutic range: 2.0 to 3.0 ?? High intensity warfarin therapeutic rang e: 2.5 to 3.5 Specimen Anatomical Collection Method Collection Time Receive d Time (Source) Location / / Volume Laterality Blood (Blood, 07/06/2018 6:26 AM 07/07/19 19 6:45 Venous) CDT AM CDT Oralia Ricks APRN, C.N.P. LAB BLOOD ADD-ON Performing Organization Address [facility] Phon e Number [facility]IES - [address] [place] [address] [facility] Basic Metabolic Panel (07/06/2018 6:26 AM CDT) Analysis Performed At Patho logist Time Signature Potassium, S 4.3 3.6 - 5.2 07/06/2018 [facility] mmol/L 7:25 AM CDT [facility] Sodium, S 139 135 - 145 07/06/2018 [facility] mmol/L 7:25 AM CDT [facility] Chloride, S 102 98 - 107 07/06/2018 [facility] mmol/L 7:25 AM CDT [facility] Bicarbonate, S 24 22 - 29 07/06/2018 [facility] mmol/L 7:25 AM CDT [facility] Anion Gap 13 7 - 15 07/06/2018 [facility] 7:25 AM CDT [facility] BUN (Blood Urea 19 6 - 21 07/06/2018 [facility] Nitrogen), S mg/dL 7:25 AM T [facility] Creatinine 0.99 0.59 - 07/06/2018 [facility] 1.04 mg/dL 7:25 AM T [facility] eGFR-Non 62 >=60 07/06/2018 [facility] Black/ mL/min/BSA 7:25 AM CDT [facility]ATORIES [facility] Comment: ----ADDITIONAL INFORMATION---- Estimated GFR calculated using the 2009 CKD_EPI creatinine equation. eGFR-Black/ 71 >=60 mL/min/BSA 07/06/2018 [facility] Comment: ----ADDITIONAL INFORMATION---- Estimated GFR calculated using the 2009 CKD_EPI creatinine equation. Calcium, Total, S 9.3 8.8 - 10.2 mg/dL 07/06/2018 7:25 AM [facility] CDT [facility] S Glucose, S 107 70 - 140 mg/dL 07/06/2018 7:25 AM [facility] Specimen Anatomical Collection Method Collection Time Receive d Time (Source) Location / / Volume Laterality Blood (Blood, 07/06/2018 6:26 AM 07/07/19 19 6:45 Venous) CDT AM CDT Bella Danielson P.A.-C., M.S. LAB BLOOD ADD-ON Performing Organization Address City/State/ZIP Code Phon e Number [facility] [address] [address] [facility] (ABNORMAL) CBC without Differential (07/05/2018 6:34 AM CDT) [facility] Method Time Signature Hemoglobin 13.2 11.6 - 07/05/2018 [facility] 15.0 g/dL 7:14 AM CDT [facility] Hematocrit 42.1 35.5 - 07/05/2018 [facility] 44.9 % 7:14 AM CDT [facility] Erythrocytes 4.75 3.92 - 07/05/2018 [facility] 5.13 7:14 AM CDT [facility] - x10(12)/L [facility] MCV 88.6 78.2 - 07/05/2018 [facility] 97.9 fL 7:14 AM CDT [facility] RBC Distrib 14.1 12.2 - 07/05/2018 [facility] Width 16.1 % 7:14 AM CDT [facility] Platelet Count 490 (H) 157 - 371 07/05/2018 [facility] x10(9)/L 7:14 AM CDT [facility] Leukocytes 9.6 3.4 - 9.6 07/05/2018 [facility] x10(9)/L 7:14 AM CDT [facility] Specimen Anatomical Collection Method Collection Time Receive d Time (Source) Location / / Volume Laterality Blood (Blood, 07/05/2018 6:34 AM 07/06/19 19 7:11 Venous) CDT AM CDT Oralia Ricks APRN, C.N.P. LAB BLOOD ADD-ON Performing Organization Address City/State/[facility] Phon e Number [facility] - [address] [place] [address] [facility] (ABNORMAL) Prothrombin Time (PT/INR) (07/05/2018 6:33 AM CDT) [facility] Method Time Signature Prothrombin 30.5 (H) 9.4 - 07/05/2018 [facility] Time, P 12.5 sec 7:36 AM CDT LABORATORIES [facility] INR 2.7 0.9 - 1.1 07/05/2018 [facility] 7:36 AM CDT [facility] Comment: ----ADDITIONAL INFORMATION---- Standard intensity warfarin therapeutic range: 2.0 to 3.0 ?? High intensity warfarin therapeutic rang e: 2.5 to 3.5 Specimen Anatomical Collection Method Collection Time Receive d Time (Source) Location / / Volume Laterality Blood (Blood, 07/05/2018 6:33 AM 07/06/19 19 7:11 Venous) CDT AM CDT Oralia Ricks APRN, C.N.P. LAB BLOOD ADD-ON Performing Organization Address City/State/ZIP Code Phon e Number [facility] LABORATORIES - [address] [place], [place] [address] [facility] (ABNORMAL) Basic Metabolic Panel (07/05/2018 6:33 AM CDT) [facility] gist Method Time Signature Potassium, S 4.6 3.6 - 5.2 07/05/2018 [facility] mmol/L 7:49 AM CDT LABORATORIES - [facility] Sodium, S 139 135 - 145 07/05/2018 [facility] mmol/L 7:49 AM CDT LABORATORIES - [facility] Chloride, S 100 98 - 107 07/05/2018 [facility] mmol/L 7:49 AM CDT LABORATORIES - [facility] Bicarbonate, S 26 22 - 29 07/05/2018 [facility] mmol/L 7:49 AM CDT LABORATORIES - [facility] Anion Gap 13 7 - 15 07/05/2018 [facility] 7:49 AM CDT LABORATORIES - [facility] BUN (Blood 21 6 - 21 07/05/2018 [facility] Urea mg/dL 7:49 AM CDT LABORATORIES - Nitrogen), S [facility] Creatinine 1.20 (H) 0.59 - 07/05/2018 [facility] 1.04 7:49 AM CDT LABORATORIES - mg/dL [facility] eGFR-Non 49 (L) >=60 07/05/2018 [facility] Black/ mL/min/BS 7:49 AM CDT LABORATORIES - [place] A [facility] Comment: ----ADDITIONAL INFORMATION---- Estimated GFR calculated using the 2009 CKD_EPI creatinine equation. eGFR-Black/ 56 (L) >=60 mL/min/BSA 07/05/2018 7:49 [facility] [place] AM CDT LABORATORIES - [facility] Comment: ----ADDITIONAL INFORMATION---- Estimated GFR calculated using the 2009 CKD_EPI creatinine equation. Calcium, Total, S 9.3 8.8 - 10.2 mg/dL 07/05/2018 7:49 AM [facility] CDT LABORATORIES - [facility] S Glucose, S 115 70 - 140 mg/dL 07/05/2018 7:49 AM [facility] CDT LABORATORIES - [facility] S Specimen Anatomical Collection Method Collection Time Receive d Time (Source) Location / / Volume Laterality Blood (Blood, 07/05/2018 6:33 AM 07/06/19 19 7:11 Venous) CDT AM CDT Ana Butts APRN.N.P. LAB BLOOD ADD-ON Performing Organization Address City/[facility] Phon e Number [facility] LABORATORIES - [address] [address] [facility] Magnesium (07/05/2018 6:29 AM CDT) P athologist Signature Magnesium, S 1.8 1.7 - 2.3 07/05/2018 [facility] mg/dL 10:34 AM CDT LABORATORIES - [facility] Specimen Anatomical Collection Method Collection Time Receive d Time (Source) Location / / Volume Laterality Blood (Blood, 07/05/2018 6:29 AM 07/06/19 19 Venous) CDT 10:19 AM CDT Bella Danielson P.A.-C., M.S. LAB BLOOD ADD-ON Performing Organization Address [facility] Code Phon e Number [facility] LABORATORIES - [address] [address] [facility] (ABNORMAL) Prothrombin Time (PT/INR) (07/04/2018 6:30 AM CDT) Patholo gist Method Time Signature Prothrombin 20.8 (H) 9.4 - 07/04/2018 [facility] Time, P 12.5 sec 7:02 AM CDT LABORATORIES - [facility] INR 1.9 0.9 - 1.1 07/04/2018 [facility] 7:02 AM CDT LABORATORIES - [facility] Comment: ----ADDITIONAL INFORMATION---- Standard intensity warfarin therapeutic range: 2.0 to 3.0 ?? High intensity warfarin therapeutic rang e: 2.5 to 3.5 Specimen Anatomical Collection Method Collection Time Receive d Time (Source) Location / / Volume Laterality Blood (Blood, 07/04/2018 6:30 AM 07/05/19 19 6:45 Venous) CDT AM CDT Oralia Ricks APRN, C.N.P. LAB BLOOD ADD-ON Performing Organization Address [facility] Phon e Number [facility] LABORATORIES - [address] [address] [facility] (ABNORMAL) CBC without Differential (07/04/2018 6:30 AM CDT) [facility] Method Time Signature Hemoglobin 13.2 11.6 - 07/04/2018 [facility] 15.0 g/dL 6:54 AM CDT LABORATORIES - [facility] Hematocrit 41.4 35.5 - 07/04/2018 [facility] 44.9 % 6:54 AM CDT LABORATORIES - [facility] Erythrocytes 4.70 3.92 - 07/04/2018 [facility] 5.13 6:54 AM CDT LABORATORIES - x10(12)/L [facility] MCV 88.1 78.2 - 07/04/2018 [facility] 97.9 fL 6:54 AM CDT LABORATORIES - [facility] RBC Distrib 14.2 12.2 - 07/04/2018 [facility] Width 16.1 % 6:54 AM CDT LABORATORIES - [facility] Platelet Count 492 (H) 157 - 371 07/04/2018 [facility] x10(9)/L 6:54 AM CDT LABORATORIES - [facility] Leukocytes 9.1 3.4 - 9.6 07/04/2018 [facility] x10(9)/L 6:54 AM CDT LABORATORIES - [facility] Specimen Anatomical Collection Method Collection Time Receive d Time (Source) Location / / Volume Laterality Blood (Blood, 07/04/2018 6:30 AM 07/05/19 19 6:45 Venous) CDT AM CDT Oralia Ricks APRN, C.N.P. LAB BLOOD ADD-ON Performing Organization Address City/[facility] Code Phon e Number [facility] LABORATORIES - [address] [address] [facility] ([facility]NORMAL) Basic Metabolic Panel (07/04/2018 6:30 AM CDT) [facility] [employer] Method Time Signature Potassium, S 4.7 3.6 - 5.2 07/04/2018 [facility] mmol/L 7:20 AM CDT LABORATORIES - [facility] Sodium, S 138 135 - 145 07/04/2018 [facility] mmol/L 7:20 AM CDT LABORATORIES - [facility] Chloride, S 100 98 - 107 07/04/2018 [facility] mmol/L 7:20 AM CDT LABORATORIES - [facility] Bicarbonate, S 25 22 - 29 07/04/2018 [facility] mmol/L 7:20 AM CDT LABORATORIES - [facility] Anion Gap 13 7 - 15 07/04/2018 [facility] 7:20 AM CDT LABORATORIES - [facility] BUN (Blood 18 6 - 21 07/04/2018 [facility] Urea mg/dL 7:20 AM CDT LABORATORIES - Nitrogen), S [facility] Creatinine 1.06 (H) 0.59 - 07/04/2018 [facility] 1.04 7:20 AM CDT LABORATORIES - mg/dL [facility] eGFR-Non 57 (L) >=60 07/04/2018 [facility] Black/ mL/min/BS 7:20 AM CDT LABORATORIES - [place] A [facility] Comment: ----ADDITIONAL INFORMATION---- Estimated GFR calculated using the 2009 CKD_EPI creatinine equation. eGFR-Black/ 65 >=60 mL/min/BSA 07/04/2018 7:20 [facility] [place] AM CDT LABORATORIES - [facility] Comment: ----ADDITIONAL INFORMATION---- Estimated GFR calculated using the 2009 CKD_EPI creatinine equation. Calcium, Total, S 9.4 8.8 - 10.2 mg/dL 07/04/2018 7:20 AM [facility] CDT LABORATORIES - [facility] Glucose, S 138 70 - 140 mg/dL 07/04/2018 7:20 AM [facility] CDT LABORATORIES - [facility] Specimen Anatomical Collection Method Collection Time Receive d Time (Source) Location / / Volume Laterality Blood (Blood, 07/04/2018 6:30 AM 07/05/19 19 6:45 Venous) CDT AM CDT Oralia Ricks APRN, C.N.P. LAB BLOOD ADD-ON Performing Organization Address City/State/ZIP Code Phon e Number [facility] LABORATORIES - [address] [place], [place] [address] [facility] ECG 12 Lead (07/03/2018 9:41 AM CDT) [facility] gist Method Time Signature Ventricular 80 BPM MUSE Rate ECG/Min QRSD Interval 94 ms MUSE QT Interval 430 ms MUSE QTC Interval 497 ms MUSE P [place] -113 degrees MUSE R [place] 94 degrees MUSE T Wave [place] -74 degrees MUSE CODED DIAGNOSIS Atrial MUSE [...] (07/03/2018 5:30 AM CDT) Analysis Performed At [facility] logist Time Signature Activated 79 (H) 25 - 37 07/03/2018 [facility] Partial sec 6:26 AM CDT LABORATORIES - Thrombopl [facility] Specimen Anatomical Collection Method Collection Time Receive d Time (Source) Location / / Volume Laterality Blood (Blood, 07/03/2018 5:30 AM 07/04/19 19 6:07 Venous) CDT AM CDT Douglas Pham LAB BLOOD ADD-ON Performing Organization Address City/State/ZIP Code Phon e Number [facility] LABORATORIES - [address] [place], [place] [address] [facility] (ABNORMAL) Prothrombin Time (PT/INR) (07/03/2018 5:30 AM CDT) [facility] gist Method Time Signature Prothrombin 14.2 (H) 9.4 - 07/03/2018 [facility] Time, P 12.5 sec 6:26 AM CDT LABORATORIES [facility] INR 1.3 0.9 - 1.1 07/03/2018 [facility] 6:26 AM CDT LABORATORIES - [facility] Comment: ----ADDITIONAL INFORMATION---- Standard intensity warfarin therapeutic range: 2.0 to 3.0 ?? High intensity warfarin therapeutic rang e: 2.5 to 3.5 Specimen Anatomical Collection Method Collection Time Receive d Time (Source) Location / / Volume Laterality Blood (Blood, 07/03/2018 5:30 AM 07/04/19 19 6:07 Venous) CDT AM CDT Kadeem Carr APRNN.P. LAB BLOOD ADD-ON Performing Organization Address City/State/ZIP Code Phon e Number [facility] LABORATORIES - [address] [place], [place] [address] [facility] ([facility]NORMAL) CBC without Differential (07/03/2018 5:30 AM CDT) [facility] Method Time Signature Hemoglobin 13.6 11.6 - 07/03/2018 [facility] 15.0 g/dL 6:16 AM CDT LABORATORIES [facility] Hematocrit 43.6 35.5 - 07/03/2018 [facility] 44.9 % 6:16 AM CDT [employer] [facility] Erythrocytes 4.90 3.92 - 07/03/2018 [facility] 5.13 6:16 AM CDT LABORATORIES - x10(12)/L [facility] MCV 89.0 78.2 - 07/03/2018 [facility] 97.9 fL 6:16 AM CDT [employer] [facility] RBC Distrib 14.2 12.2 - 07/03/2018 [facility] Width 16.1 % 6:16 AM CDT LABORATORIES [facility] Platelet Count 531 (H) 157 - 371 07/03/2018 [facility] x10(9)/L 6:16 AM CDT LABORATORIES [facility] Leukocytes 8.7 3.4 - 9.6 07/03/2018 [facility] x10(9)/L 6:16 AM CDT LABORATORIES [facility] Specimen Anatomical Collection Method Collection Time Receive d Time (Source) Location / / Volume Laterality Blood (Blood, 07/03/2018 5:30 AM 07/04/19 19 6:07 Venous) CDT AM CDT Oralia Ricks APRN C.NEdilmaPEdilma LAB BLOOD ADD-ON Performing Organization Address City/State/ZIP Code Phon e Number [facility] LABORATORIES - [address] [place], [place] [address] [facility] Basic Metabolic Panel (07/03/2018 5:30 AM CDT) Analysis Performed At Patho logist Time Signature Potassium, S 4.8 3.6 - 5.2 07/03/2018 [facility] mmol/L 6:41 AM CDT LABORATORIES - [facility] Sodium, S 138 135 - 145 07/03/2018 [facility] mmol/L 6:41 AM CDT LABORATORIES - [facility] Chloride, S 100 98 - 107 07/03/2018 [facility] mmol/L 6:41 AM CDT LABORATORIES - [facility] Bicarbonate, S 26 22 - 29 07/03/2018 [facility] mmol/L 6:41 AM CDT LABORATORIES [facility] Anion Gap 12 7 - 15 07/03/2018 [facility] 6:41 AM CDT LABORATORIES [facility] BUN (Blood Urea 16 6 - 21 07/03/2018 [facility] Nitrogen), S mg/dL 6:41 AM CDT LABORATORIES [facility] Creatinine 0.94 0.59 - 07/03/2018 [facility] 1.04 mg/dL 6:41 AM CDT LABORATORIES [facility] eGFR-Non 66 >=60 07/03/2018 [facility] Black/ mL/min/BSA 6:41 AM CDT LABORATORIES [facility] Comment: ----ADDITIONAL INFORMATION---- Estimated GFR calculated using the 2009 CKD_EPI creatinine equation. eGFR-Black/ 76 >=60 mL/min/BSA 07/03/2018 6:41 [facility] [place] CDT LABORATORIES [facility] Comment: ----ADDITIONAL INFORMATION---- Estimated GFR calculated using the 2009 CKD_EPI creatinine equation. Calcium, Total, S 9.2 8.8 - 10.2 mg/dL 07/03/2018 6:41 AM [facility] CDT LABORATORIES [facility] Glucose, S 116 70 - 140 mg/dL 07/03/2018 6:41 AM [facility] CDT LABORATORIES - [facility] Specimen Anatomical Collection Method Collection Time Receive d Time (Source) Location / / Volume Laterality Blood (Blood, 07/03/2018 5:30 AM 07/04/19 19 6:07 Venous) CDT AM CDT Oralia Ricks APRN, C.N.P. LAB BLOOD ADD-ON Performing Organization Address City/[facility]/ZIP Code Phon e Number [facility] LABORATORIES - [address] [place], [place] [address] [facility] Glucose, POCT (07/03/2018 5:29 AM CDT) Analysis [...] Provider LAB POCT ORDERABLES-MANUAL Performing Organization Address City/[facility] Code Phon e Number [facility] LAB SERVICES [address] [place] [address] Glucose, POCT (07/03/2018 2:13 AM CDT) Analysis Performed At [facility] logist Time Signature Glucose, POCT, 114 70 - 140 07/03/2018 [facility] B mg/dL 2:15 AM CDT SERVICES Site Capillary 07/03/2018 [facility] 2:15 AM CDT SERVICES Specimen Anatomical Collection Method Collection Time Receive d Time (Source) Location / / Volume Laterality Blood 07/03/2018 2:13 AM 9 2:15 CDT AM CDT Unknown Provider LAB POCT ORDERABLES-MANUAL Performing Organization Address City/[facility] Phon e Number [facility] LAB SERVICES [address] [place] [address] (ABNORMAL) APTT (Activated Partial Thromboplastin Time) (07/02/2018 9:01 PM CDT) Analysis Performed At Path logis Time Signature Activated 88 (H) 25 - 37 07/02/2018 [facility] Partial sec 10:04 PM CDT LABORATORIES - Thrombopl [facility] Time, P CAMPUS Specimen Anatomical Collection Method Collection Time Receive d Time (Source) Location / / Volume Laterality Blood (Blood, 07/02/2018 9:01 PM 07/03/19 19 9:31 Venous) CDT PM CDT Douglas RendonSEdilma LAB BLOOD ADD-ON Performing Organization Address City/[facility]/ZIP Code Phon e Number [facility] LABORATORIES - [address] [place], [place] [address] [facility] Glucose, POCT (07/02/2018 5:34 PM CDT) Analysis [...] Provider LAB POCT ORDERABLES-MANUAL Performing Organization Address [facility] Phon e Number [facility] SERVICES [address] [place] [address] (ABNORMAL) APTT (Activated Partial Thromboplastin Time) (07/02/2018 1:27 PM CDT) Analysis Performed At Patho logist Time Signature Activated 42 (H) 25 - 37 07/02/2018 [facility] Partial sec 2:25 PM CDT LABORATORIES - Thrombopl [facility] Specimen Anatomical Collection Method Collection Time Receive d Time (Source) Location / / Volume Laterality Blood (Blood, 07/02/2018 1:27 PM 07/03/19 19 1:59 Venous) CDT PM CDT Douglas RendonS. LAB BLOOD ADD-ON Performing Organization Address City/[facility]/ZIP Code Phon e Number [facility] LABORATORIES - [address] [place], [place] [address] [facility] Glucose, POCT (07/02/2018 1:16 PM CDT) Analysis [...] Provider LAB POCT ORDERABLES-MANUAL Performing Organization Address City/[facility]/ZIP Code Phon e Number [facility] LAB SERVICES [address] [place] [address] Glucose, POCT (07/02/2018 6:41 AM CDT) Analysis [...] Provider LAB POCT ORDERABLES-MANUAL Performing Organization Address City/[facility]/ZIP Code Phon e Number [facility] LAB SERVICES [address] [place] [address] Thyroid Function [place] (07/02/2018 5:23 AM CDT) P athologist Signature TSH, Sensitive 3.3 0.3 - 4.2 07/02/2018 [facility] mIU/L 9:20 AM CDT LABORATORIES - [facility] Specimen Anatomical Collection Method Collection Time Receive d Time (Source) Location / / Volume Laterality Blood (Blood, 07/02/2018 5:23 AM 07/03/19 19 8:30 Venous) CDT AM CDT Oralia Ricks APRN, C.N.P. LAB BLOOD ADD-ON Performing Organization Address City/[facility]/ZIP Code Phon e Number [facility] LABORATORIES - [address] [place], [place] [address] [facility] (ABNORMAL) APTT (Activated Partial Thromboplastin Time) (07/02/2018 5:23 AM CDT) Patholo gist Method Time Signature Activated 115 (H) 25 - 37 07/02/2018 [facility] Partial sec 6:04 AM CDT LABORATORIES - Thrombopl [facility] Time, CAMPUS Specimen Anatomical Collection Method Collection Time Receive d Time (Source) Location / / Volume Laterality Blood (Blood, 07/02/2018 5:23 AM 07/03/19 19 5:34 Venous) CDT AM CDT Douglas Pham LAB BLOOD ADD-ON Performing Organization Address City/[facility] Phon e Number [facility] LABORATORIES - [address] [place], [place] [address] [facility] (ABNORMAL) Prothrombin Time (PT/INR) (07/02/2018 5:23 AM CDT) [facility] Method Time Signature Prothrombin 14.2 (H) 9.4 - 07/02/2018 [facility] Time, P 12.5 sec 5:51 AM CDT LABORATORIES - [facility] INR 1.3 0.9 - 1.1 07/02/2018 [facility] 5:51 AM CDT LABORATORIES - [facility] Comment: ----ADDITIONAL INFORMATION---- Standard intensity warfarin therapeutic range: 2.0 to 3.0 ?? High intensity warfarin therapeutic rang e: 2.5 to 3.5 Specimen Anatomical Collection Method Collection Time Receive d Time (Source) Location / / Volume Laterality Blood (Blood, 07/02/2018 5:23 AM 07/03/19 19 5:34 Venous) CDT AM CDT Oralia Ricks APRN, C.N.P. LAB BLOOD ADD-ON Performing Organization Address City/[facility] Phon e Number [facility] LABORATORIES - [address] [place], [place] [address] [facility] (ABNORMAL) CBC without Differential (07/02/2018 5:23 AM CDT) [facility] Method Time Signature Hemoglobin 13.6 11.6 - 07/02/2018 [facility] 15.0 g/dL 5:43 AM CDT LABORATORIES - [facility] Hematocrit 42.7 35.5 - 07/02/2018 [facility] 44.9 % 5:43 AM CDT LABORATORIES - [facility] Erythrocytes 4.87 3.92 - 07/02/2018 [facility] 5.13 5:43 AM CDT LABORATORIES - x10(12)/L [facility] MCV 87.7 78.2 - 07/02/2018 [facility] 97.9 fL 5:43 AM CDT LABORATORIES - [facility] RBC Distrib 14.1 12.2 - 07/02/2018 [facility] Width 16.1 % 5:43 AM CDT LABORATORIES - [facility] Platelet Count 511 (H) 157 - 371 07/02/2018 [facility] x10(9)/L 5:43 AM CDT LABORATORIES - [facility] Leukocytes 9.2 3.4 - 9.6 07/02/2018 [facility] x10(9)/L 5:43 AM CDT LABORATORIES - [facility] Specimen Anatomical Collection Method Collection Time Receive d Time (Source) Location / / Volume Laterality Blood (Blood, 07/02/2018 5:23 AM 07/03/19 19 5:34 Venous) CDT AM CDT Oralia Ricks APRN, C.N.P. LAB BLOOD ADD-ON Performing Organization Address City/State/ZIP Code Phon e Number [facility] LABORATORIES - [address] [place], [place] [address] [facility] (ABNORMAL) Basic Metabolic Panel (07/02/2018 5:23 AM CDT) [facility] gist Method Time Signature Potassium, S 3.6 3.6 - 5.2 07/02/2018 [facility] mmol/L 6:59 AM CDT LABORATORIES - [facility] Sodium, S 135 135 - 145 07/02/2018 [facility] mmol/L 6:59 AM CDT LABORATORIES - [facility] Chloride, S 97 (L) 98 - 107 07/02/2018 [facility] mmol/L 6:59 AM CDT LABORATORIES - [facility] Bicarbonate, S 23 22 - 29 07/02/2018 [facility] mmol/L 6:59 AM CDT LABORATORIES - [facility] Anion Gap 15 7 - 15 07/02/2018 [facility] 6:59 AM CDT LABORATORIES - [facility] BUN (Blood Urea 17 6 - 21 07/02/2018 [facility] Nitrogen), S mg/dL 6:59 AM CDT [facility] Creatinine 0.96 0.59 - 07/02/2018 [facility] 1.04 mg/dL 6:59 AM CDT [facility] eGFR-Non 64 >=60 07/02/2018 [facility] Black/ mL/min/BSA 6:59 AM CDT [facility] - [facility] Comment: ----ADDITIONAL INFORMATION---- Estimated GFR calculated using the 2009 CKD_EPI creatinine equation. eGFR-Black/ 74 >=60 mL/min/BSA 07/02/2018 6:59 [facility] AM CDT [facility] Comment: ----ADDITIONAL INFORMATION---- Estimated GFR calculated using the 2009 CKD_EPI creatinine equation. Calcium, Total, S 9.0 8.8 - 10.2 07/02/2018 6:59 AM [facility] mg/dL CDT [facility] - [facility] S Glucose, S 163 (H) 70 - 140 mg/dL 07/02/2018 6:59 AM [facility] CDT LAB[facility] - [facility] Specimen Anatomical Collection Method Collection Time Receive d Time (Source) Location / / Volume Laterality Blood (Blood, 07/02/2018 5:23 AM 07/03/19 19 5:34 Venous) CDT AM CDT Amrita Carr APRNP. LAB BLOOD ADD-ON Performing Organization Address City/[facility] Code Phon e Number [facility] LABORATORIES - [address] (ABNORMAL) APTT (Activated Partial Thromboplastin Time) (07/01/2018 10:04 PM CDT) Analysis Performed At Patho logist Time Signature Activated 39 (H) 25 - 37 07/01/2018 [facility] Partial sec 10:35 PM CDT [facility] Specimen Anatomical Collection Method Collection Time Receive d Time (Source) Location / / Volume Laterality Blood (Blood, 07/01/2018 10:04 07/01/2018 Venous) PM CDT 10:21 PM CDT Douglas Pham LAB BLOOD ADD-ON Performing Organization Address City/[facility] Code Phon e Number [facility]ATORIES - [address] [place] [address] [facility] Glucose, POCT (07/01/2018 9:49 PM CDT) P athologist Signature Glucose, POCT, 118 70 - 140 07/01/2018 [facility] B mg/dL 9:52 PM CDT SERVICES Specimen Anatomical Collection Method Collection Time Receive d Time (Source) Location / / Volume Laterality Blood 07/01/2018 9:49 PM 9 9:52 CDT PM CDT Unknown Provider LAB POCT ORDERABLES-MANUAL Performing Organization Address City/[facility]/ZIP Code Phon e Number POC [facility] LAB SERVICES [address] [place] [address] (ABNORMAL) APTT (Activated Partial Thromboplastin Time) (07/01/2018 9:12 PM CDT) Analysis Performed At [facility] logist Time [facility] Activated 20 (L) 25 - 37 07/01/2018 [facility] Partial sec 10:53 PM CDT LABORATORIES - Thrombopl [facility] Specimen Anatomical Collection Method Collection Time Receive d Time (Source) Location / / Volume Laterality Blood (Blood, 07/01/2018 9:12 PM 07/02/19 19 Venous) CDT 10:10 PM CDT Douglas Pham LAB BLOOD ADD-ON Performing Organization Address City/[facility]/ZIP Code Phon e Number [facility]IES - [address] [place], [place] [address] [facility] Glucose, POCT (07/01/2018 5:34 PM CDT) Analysis Performed At [facility] logist Time Signature Glucose, POCT, 112 70 [...] Provider LAB POCT ORDERABLES-MANUAL Performing Organization Address City/[facility]/ZIP Code Phon e Number POC [facility] LAB SERVICES [address] [place] [address] (ABNORMAL) Prothrombin Time (PT/INR) (07/01/2018 1:55 PM CDT) Patholo gist Method Time Signature Prothrombin 17.6 (H) 9.4 - 07/01/2018 [facility] Time, P 12.5 sec 2:21 PM CDT LABORATORIES - [facility] INR 1.6 0.9 - 1.1 07/01/2018 [facility] 2:21 PM CDT LABORATORIES - [facility] Comment: ----ADDITIONAL INFORMATION---- Standard intensity warfarin therapeutic range: 2.0 to 3.0 ?? High intensity warfarin therapeutic rang e: 2.5 to 3.5 Specimen Anatomical Collection Method Collection Time Receive d Time (Source) Location / / Volume Laterality Blood (Blood, 07/01/2018 1:55 PM 07/02/19 19 2:02 Venous) CDT PM CDT Oralia Ricks APRN C.N.P. LAB BLOOD ADD-ON Performing Organization Address City/State/ZIP Code Phon e Number [facility]IES - [address] [place], [place] [address] [facility] Glucose, POCT (07/01/2018 1:11 PM CDT) Analysis [...] Provider LAB POCT ORDERABLES-MANUAL Performing Organization Address City/[facility] Code Phon e Number [facility] SERVICES [address] [place] [address] (MICHAEL) 2D WITH COLOR, LIMITED DOPPLER AND [...] ic aorta. ??Normally connected pulmonary veins. ??No nlhk-bu-dpuvg shunt at atrial level. ??A gitated saline injection(s) performed during sedation. No dcwmf-pn-ruhf shunt at atrial level. ??Pericardial effusion. ??PROCEDURE ??Transesophageal echocardiogram performed at the request of the primary management services technician. ??Adult probe inserted without difficulty. ??Procedure performed [...] Narrator or other pertinent rec ord in [facility] for additional procedure and sedation information. ??Transesophageal [...] ic aorta. Normally connected pulmonary veins. No dpzr-fn-rmszm shunt at atrial level. Michelle tated saline injection(s) performed during sedation. No sawke-ep-brwz shunt at atrial level. Pericardial effusion. PROCEDURE Transesophageal echocardiogram performed at the request of the primary management services technician. Adult probe inserted without difficulty. Procedure p [...] Lead STAT PRN (07/01/2018 9:44 AM CDT) [facility] Method Time Signature Ventricular 137 BPM MUSE Rate ECG/Min MI Interval 244 ms MUSE QRSD Interval 64 ms MUSE QT Interval 364 ms MUSE QTC Interval 549 ms MUSE P [place] 17 degrees MUSE R [place] 102 degrees MUSE T Wave [place] -143 degrees MUSE CODED DIAGNOSIS Atrial MUSE [...] P.A.-C. ECG ORDERABLES Performing Organization Address City/State/ZIP [facility] [place]on [place] Number MUSE MUSE NA (ABNORMAL) Microscopic Manual (07/01/2018 9:28 AM CDT) P athologist Signature Microscopy Abnormal 07/01/2018 [facility] 1:34 PM CDT LABORATORIES - [facility] RBC <3 <3 /hpf 07/01/2018 [facility] 1:34 PM CDT LABORATORIES - [facility] WBC 1-3 /hpf 07/01/2018 [facility] 1:34 PM CDT LABORATORIES - [facility] Comment: ----REFERENCE VALUE---- 1-3 ??(Males) 1-10 (Females) Casts, Hyaline 4-10 /lpf 07/01/2018 1:34 PM [facility] CDT LABORATORIES - [facility] Casts, Granular Occas (A) /lpf 07/01/2018 1:34 PM [facility] CDT LABORATORIES [facility] S Fat, Free Occas (A) /hpf 07/01/2018 1:34 PM [facility] CDT LABORATORIES [facility] Squamous Epithelial 4-10 /hpf 07/01/2018 1:34 PM [facility] Cells, U CDT LABORATORIES [facility] Bacteria Present (A) 07/01/2018 1:34 PM [facility] CDT LABORATORIES - [facility] Specimen Anatomical Collection Method Collection Time Receive d Time (Source) Location / / Volume Laterality Urine 07/01/2018 9:28 AM 9 CDT 12:00 PM CDT Antelmo Richey P.A.-C. LAB URINE ORDERABLES Performing Organization Address City/[facility]/ZIP Code Phon e Number [facility]ATORIES - [address] [place], [place] [address] [facility] (ABNORMAL) Urinalysis with Microscopic (07/01/2018 9:28 AM CDT) Patholo gist Method Time Signature Source Midstream 07/01/2018 [facility] 12:00 PM CDT LABORATORIES [facility] Appearance Normal Normal 07/01/2018 [facility] 12:25 PM CDT LABORATORIES [facility] Osmolality, U 652 150 - 1150 07/01/2018 [facility] mOsm/kg 1:10 PM CDT LABORATORIES [facility] pH, U 5.7 4.5 - 8.0 07/01/2018 [facility] 1:10 PM CDT [facility] Comment: ----ADDITIONAL INFORMATION---- This test was developed and its performa nce characteristics determined by [facility] in a manner co nsistent with CLIA requirements. This test has not bee n cleared or approved by the U.S. Food and Drug Admin istration. Glucose 8 0 - 15 mg/dL 07/01/2018 12:25 PM CDT [facility] Protein, U 40 (H) <26 mg/dL 07/01/2018 12:25 PM CDT [facility] Comment: ----ADDITIONAL INFORMATION---- On 09/17/2016 the total protein assay me thod changed resulting in approximately a 15% increase in prote in values. Protein/Osmolality 0.61 (H) <0.42 Ratio 07/01/2018 1:10 PM [facility] CDT [facility] Comment: ----ADDITIONAL INFORMATION---- On 09/17/2016 the total protein assay me thod changed resulting in approximately a 15% increase in prote in values. Predicted 24 Hr 429 mg/24 h 07/01/2018 1:10 PM [facility] Protein T [facility] Predicted Range 106-1738 mg/24 h 07/01/2018 1:10 PM [facility] Hemoglobin, QL Negative Negative 07/01/2018 12:54 PM [facility] CDT [facility] Specimen Anatomical Collection Method Collection Time Receive d Time (Source) Location / / Volume Laterality Urine (Urine, 07/01/2018 9:28 AM 07/02/19 19 Clean Catch) CDT 12:00 PM CDT Antelmo Richey P.A.-C. LAB URINE ORDERABLES Performing Organization Address City/State/ZIP Code Phon e Number [facility] - [address] [place], [place] [address] [facility] Glucose, POCT (07/01/2018 5:51 AM CDT) Analysis Performed At Patho logist Time Signature Glucose, POCT, 115 70 - 140 07/01/2018 [facility] B mg/dL 5:52 AM CDT SERVICES Site Capillary 07/01/2018 [facility] 5:52 AM CDT SERVICES Last Intake 3-4 hours 07/01/2018 POC [facility] LAB 5:52 AM CDT SERVICES Specimen Anatomical Collection Method Collection Time Receive d Time (Source) Location / / Volume Laterality Blood 07/01/2018 5:51 AM 9 5:53 CDT AM CDT Unknown Provider LAB POCT ORDERABLES-MANUAL Performing Organization Address City/State/ZIP Code Phon e Number POC [facility] LAB SERVICES [address] [place] [address] (ABNORMAL) Basic Metabolic Panel (07/01/2018 5:50 AM CDT) [facility] gist Method Time Signature Potassium, S 5.1 3.6 - 5.2 07/01/2018 [facility] mmol/L 6:49 AM CDT LABORATORIES - [facility] Sodium, S 138 135 - 145 07/01/2018 [facility] mmol/L 6:49 AM CDT LABORATORIES - [facility] Chloride, S 99 98 - 107 07/01/2018 [facility] mmol/L 6:49 AM CDT LABORATORIES - [facility] Bicarbonate, S 26 22 - 29 07/01/2018 [facility] mmol/L 6:49 AM CDT LABORATORIES - [facility] Anion Gap 13 7 - 15 07/01/2018 [facility] 6:49 AM CDT LABORATORIES - [facility] BUN (Blood 21 6 - 21 07/01/2018 [facility] Urea mg/dL 6:49 AM CDT LABORATORIES - Nitrogen), S [facility] Creatinine 1.14 (H) 0.59 - 07/01/2018 [facility] 1.04 6:49 AM CDT LABORATORIES - mg/dL [facility] eGFR-Non 52 (L) >=60 07/01/2018 [facility] Black/ mL/min/BS 6:49 AM CDT LABORATORIES - [place] A [facility] Comment: ----ADDITIONAL INFORMATION---- Estimated GFR calculated using the 2009 CKD_EPI creatinine equation. eGFR-Black/ 60 >=60 mL/min/BSA 07/01/2018 6:49 [facility] [place] AM CDT LABORATORIES - [facility] Comment: ----ADDITIONAL INFORMATION---- Estimated GFR calculated using the 2009 CKD_EPI creatinine equation. Calcium, Total, S 9.4 8.8 - 10.2 mg/dL 07/01/2018 6:49 AM [facility] CDT LABORATORIES - [facility] S Glucose, S 121 70 - 140 mg/dL 07/01/2018 6:49 AM [facility] CDT LABORATORIES - [facility] S Specimen Anatomical Collection Method Collection Time Receive d Time (Source) Location / / Volume Laterality Blood (Blood, 07/01/2018 5:50 AM 07/02/19 19 6:13 Venous) CDT AM CDT Antelmo Richey P.A.-C. LAB BLOOD ADD-ON Performing Organization Address City/State/ZIP Code Phon e Number [facility] LABORATORIES - [address] [place], [place] [address] [facility] Glucose, POCT (06/30/2018 9:38 PM CDT) Analysis [...] Address City/State/ZIP Code Phon e Number POC [facility] LAB SERVICES [address] [place] [address] ECG 12 Lead (06/30/2018 8:54 PM CDT) [facility] gist Method Time Signature Ventricular 64 BPM MUSE Rate ECG/Min MI Interval 156 ms MUSE QRSD Interval 86 ms MUSE QT Interval 456 ms MUSE QTC Interval 470 ms MUSE P [place] 56 degrees MUSE R [place] 109 degrees MUSE T Wave [place] 68 degrees MUSE CODED DIAGNOSIS Atrial MUSE [...] Provider LAB POCT ORDERABLES-MANUAL Performing Organization Address [facility] Phon e Number [facility] SERVICES [address] [place] [address] Glucose, POCT (06/30/2018 11:18 AM CDT) Analysis [...] Provider LAB POCT ORDERABLES-MANUAL Performing Organization Address City/[facility]/ZIP [facility] Phon [place] Number [facility] [address] [place] [address] Basic Metabolic Panel (06/30/2018 6:01 AM CDT) Analysis Performed At Patho logist Time Signature Potassium, S 4.4 3.6 - 5.2 06/30/2018 [facility] mmol/L 6:50 AM CDT [facility] Sodium, S 138 135 - 145 06/30/2018 [facility] mmol/L 6:50 AM CDT LABORATORIES [facility] Chloride, S 100 98 - 107 06/30/2018 [facility] mmol/L 6:50 AM CDT LABORATORIES [facility] Bicarbonate, S 24 22 - 29 06/30/2018 [facility] mmol/L 6:50 AM CDT LABORATORIES [facility] Anion Gap 14 7 - 15 06/30/2018 [facility] 6:50 AM CDT [facility] BUN (Blood Urea 12 6 - 21 06/30/2018 [facility] Nitrogen), S mg/dL 6:50 AM T [facility] Creatinine 0.82 0.59 - 06/30/2018 [facility] 1.04 mg/dL 6:50 AM T [facility] eGFR-Non 77 >=60 06/30/2018 [facility] Black/ mL/min/BSA 6:50 AM CDT LABORATORIES [facility] Comment: ----ADDITIONAL INFORMATION---- Estimated GFR calculated using the 2009 CKD_EPI creatinine equation. eGFR-Black/ 89 >=60 mL/min/BSA 06/30/2018 6:50 [facility] Comment: ----ADDITIONAL INFORMATION---- Estimated GFR calculated using the 2009 CKD_EPI creatinine equation. Calcium, Total, S 9.1 8.8 - 10.2 mg/dL 06/30/2018 6:50 AM [facility] CDT [facility] Glucose, S 126 70 - 140 mg/dL 06/30/2018 6:50 AM [facility] Specimen Anatomical Collection Method Collection Time Receive d Time (Source) Location / / Volume Laterality Blood (Blood, 06/30/2018 6:01 AM 07/01/19 19 6:18 Venous) CDT AM CDT Antelmo Richey P.A.-C. LAB BLOOD ADD-ON Performing Organization Address City/State/ZIP Code Phon e Number [facility] - [address] [place], [place] [address] [facility] (ABNORMAL) CBC with Differential, Blood (06/30/2018 6:01 AM CDT) [facility] Method Time Signature Hemoglobin 13.0 11.6 - 06/30/2018 [facility] 15.0 g/dL 6:26 AM CDT LABORATORIES - [facility] Hematocrit 40.6 35.5 - 06/30/2018 [facility] 44.9 % 6:26 AM CDT LABORATORIES - [facility] Erythrocytes 4.60 3.92 - 06/30/2018 [facility] 5.13 6:26 AM CDT LABORATORIES - x10(12)/L [facility] MCV 88.3 78.2 - 06/30/2018 [facility] 97.9 fL 6:26 AM CDT LABORATORIES - [facility] RBC Distrib 13.8 12.2 - 06/30/2018 [facility] Width 16.1 % 6:26 AM CDT LABORATORIES - [facility] Platelet Count 451 (H) 157 - 371 06/30/2018 [facility] x10(9)/L 6:26 AM CDT LABORATORIES - [facility] Leukocytes 9.8 (H) 3.4 - 9.6 06/30/2018 [facility] x10(9)/L 6:26 AM CDT LABORATORIES - [facility] Neutrophils 5.28 1.56 - 06/30/2018 [facility] 6.45 6:26 AM CDT LABORATORIES - x10(9)/L [facility] Lymphocytes 2.89 0.95 - 06/30/2018 [facility] 3.07 6:26 AM CDT LABORATORIES - x10(9)/L [facility] Monocytes 1.29 (H) 0.26 - 06/30/2018 [facility] 0.81 6:26 AM CDT LABORATORIES - x10(9)/L [facility] Eosinophils 0.19 0.03 - 06/30/2018 [facility] 0.48 6:26 AM CDT LABORATORIES - x10(9)/L [facility] Basophils 0.10 (H) 0.01 - 06/30/2018 [facility] 0.08 6:26 AM CDT LABORATORIES - x10(9)/L [facility] Specimen Anatomical Collection Method Collection Time Receive d Time (Source) Location / / Volume Laterality Blood (Blood, 06/30/2018 6:01 AM 07/01/19 19 6:18 Venous) CDT AM CDT Antelmo Richey P.A.-C. LAB BLOOD ADD-ON Performing Organization Address City/[facility]/ZIP Code Phon e Number [facility] LABORATORIES - [address] [place], [place] [address] [facility] Glucose, POCT (06/30/2018 6:00 AM CDT) Analysis [...] Provider LAB POCT ORDERABLES-MANUAL Performing Organization Address City/[facility]/ZIP Code Phon e Number [facility]OC [facility] SERVICES [address] [place] [address] Magnesium (06/30/2018 5:57 AM CDT) P athologist Signature Magnesium, S 1.8 1.7 - 2.3 06/30/2018 [facility] mg/dL 10:59 AM CDT LABORATORIES - [facility] Specimen Anatomical Collection Method Collection Time Receive d Time (Source) Location / / Volume Laterality Blood (Blood, 06/30/2018 5:57 AM 07/01/19 19 Venous) CDT 10:36 AM CDT Antelmo Richey P.A.-C. LAB BLOOD ADD-ON Performing Organization Address City/[facility]/ZIP Code Phon e Number [facility] LABORATORIES - [address] [place], [place] [address] [facility] DX Chest AP or PA and Lateral [...] PA AND LATERAL 2 VIEWS Procedure Note Jair Ramos M.D. - 06/30/2018For matting of this [...] Total Iron-Binding Capacity (06/29/2018 7:25 PM CDT) [facility] Method Time Signature Iron 89 35 - 145 06/29/2018 [facility] mcg/dL 8:45 PM CDT [facility] Total Iron 505 (H) 250 - 400 06/29/2018 [facility] Binding mcg/dL 8:46 PM CDT LABORATORIES [facility] Percent 18 14 - 50 % 06/29/2018 [facility] Saturation 8:46 PM CDT LABORATORIES [facility] Specimen Anatomical Collection Method Collection Time Receive d Time (Source) Location / / Volume Laterality Blood (Blood, 06/29/2018 7:25 PM 06/30/19 19 7:49 Venous) CDT PM CDT Alysha Charles P.A.-C. LAB BLOOD ADD-ON Performing Organization Address City/State/ZIP Code Phon e Number [facility] LABORATORIES - [address] [place], [place] [address] [facility] Lipid Panel (06/29/2018 7:25 PM CDT) P athologist Signature Cholesterol, 156 mg/dL 06/29/2018 [facility] Total 8:45 PM CDT LABORATORIES [facility] Comment: ----REFERENCE VALUE---- Desirable: < 200 Borderline high: 200 - 239 High: > or = 240 Triglycerides 127 mg/dL 06/29/2018 8:45 PM CDT [facility] Comment: ----REFERENCE VALUE---- Normal: <150 Borderline high: 150-199 High: 200-499 Very high: > or =500 Cholesterol, HDL, S 56 >=50 mg/dL 06/29/2018 8:45 PM CDT [facility] Calculated LDL 75 mg/dL 06/29/2018 8:45 PM CDT [facility] Comment: ----REFERENCE VALUE---- Desirable: <100 Above Desirable: 100-129 Borderline high: 130-159 High: 160-189 Very high: > or =190 Cholesterol, Non-HDL, 100 mg/dL 06/29/2018 8:4 5 PM CDT [facility] Comment: ----REFERENCE VALUE---- Desirable: <130 Above Desirable: 130-159 Borderline high: 160-189 High: 190-219 Very high: > or =220 Specimen Anatomical Collection Method Collection Time Receive d Time (Source) Location / / Volume Laterality Blood (Blood, 06/29/2018 7:25 PM 06/30/19 19 7:49 Venous) CDT PM CDT Alysha Charles P.A.-C. LAB BLOOD ADD-ON Performing Organization Address City/State/ZIP Code Phon e Number [facility] - [address] [place], [place] [address] [facility] Prothrombin Time (PT/INR) (06/29/2018 7:25 PM CDT) [facility] gist Method Time Signature Prothrombin 12.2 9.4 - 12.5 06/29/2018 [facility] Time, P sec 8:08 PM CDT [facility] INR 1.1 0.9 - 1.1 06/29/2018 [facility] 8:08 PM CDT [facility] Comment: ----ADDITIONAL INFORMATION---- Standard intensity warfarin therapeutic range: 2.0 to 3.0 ?? High intensity warfarin therapeutic rang e: 2.5 to 3.5 Specimen Anatomical Collection Method Collection Time Receive d Time (Source) Location / / Volume Laterality Blood (Blood, 06/29/2018 7:25 PM 06/30/19 19 7:49 Venous) CDT PM CDT Alysha Charles P.A.-C. LAB BLOOD ADD-ON Performing Organization Address City/State/ZIP Code Phon e Number [facility] LABORATORIES - [address] [place], [place] [address] [facility] (ABNORMAL) CBC with Differential, Blood (06/29/2018 7:25 PM CDT) [facility] Method Time Signature Hemoglobin 13.6 11.6 - 06/29/2018 [facility] 15.0 g/dL 7:55 PM CDT LABORATORIES - [facility] Hematocrit 43.1 35.5 - 06/29/2018 [facility] 44.9 % 7:55 PM CDT LABORATORIES - [facility] Erythrocytes 4.92 3.92 - 06/29/2018 [facility] 5.13 7:55 PM CDT LABORATORIES - x10(12)/L [facility] MCV 87.6 78.2 - 06/29/2018 [facility] 97.9 fL 7:55 PM CDT LABORATORIES - [facility] RBC Distrib 13.9 12.2 - 06/29/2018 [facility] Width 16.1 % 7:55 PM CDT LABORATORIES - [facility] Platelet Count 524 (H) 157 - 371 06/29/2018 [facility] x10(9)/L 7:55 PM CDT LABORATORIES - [facility] Leukocytes 10.8 (H) 3.4 - 9.6 06/29/2018 [facility] x10(9)/L 7:55 PM CDT LABORATORIES - [facility] Neutrophils 7.29 (H) 1.56 - 06/29/2018 [facility] 6.45 7:55 PM CDT LABORATORIES - x10(9)/L [facility] Lymphocytes 2.21 0.95 - 06/29/2018 [facility] 3.07 7:55 PM [facility]T [facility] - x10(9)/L [facility] Monocytes 1.12 (H) 0.26 - 06/29/2018 [facility] 0.81 7:55 PM [facility]T [facility] - x10(9)/L [facility] Eosinophils 0.10 0.03 - 06/29/2018 [facility] 0.48 7:55 PM CDT LABORATORIES - x10(9)/L [facility] Basophils 0.10 (H) 0.01 - 06/29/2018 [facility] 0.08 7:55 PM CDT LABORATORIES - x10(9)/L [facility] Specimen Anatomical Collection Method Collection Time Receive d Time (Source) Location / / Volume Laterality Blood (Blood, 06/29/2018 7:25 PM 06/30/19 19 7:49 Venous) CDT PM CDT Alysha Charles P.A.-C. LAB BLOOD ADD-ON Performing Organization Address City/[facility] Code Phon e Number [facility] LABORATORIES - [address] [place] [address] [facility] (ABNORMAL) S-TSH (Thyroid-Stimulating Hormone - Sensitive) (06/29/2018 7:25 PM CDT) Patholo gist Method Time Signature TSH, Sensitive 4.8 (H) 0.3 - 4.2 06/29/2018 [facility] mIU/L 8:45 PM CDT LABORATORIES [facility] Specimen Anatomical Collection Method Collection Time Receive d Time (Source) Location / / Volume Laterality Blood (Blood, 06/29/2018 7:25 PM 06/30/19 19 7:49 Venous) CDT PM CDT Alysha Charles P.A.-C. LAB BLOOD ADD-ON Performing Organization Address City/[facility] Code Phon e Number [facility] LABORATORIES - [address] [place] [address] [facility] (ABNORMAL) NT-Pro B-Type Natriuretic Peptide (BNP) (06/29/2018 7:25 PM CDT) P athologist Signature NT-Pro BNP 5956 (H) <=177 06/29/2018 [facility] pg/mL 8:45 PM CDT LABORATORIES [facility] Comment: NT-proBNP values less than 300 pg/mL [...] P.A.-C. LAB BLOOD ADD-ON Performing Organization Address City/[facility] Code Phon e Number [facility] LABORATORIES - [address] [place], [place] [address] [facility] Magnesium (06/29/2018 7:25 PM CDT) P athologist Signature Magnesium, S 1.8 1.7 - 2.3 06/29/2018 [facility] mg/dL 8:45 PM CDT LABORATORIES - [facility] Specimen Anatomical Collection Method Collection Time Receive d Time (Source) Location / / Volume Laterality Blood (Blood, 06/29/2018 7:25 PM 06/30/19 19 7:49 Venous) CDT PM CDT Alysha Charles P.A.-C. LAB BLOOD ADD-ON Performing Organization Address City/[facility] Code Phon e Number [facility] LABORATORIES - [address] [place] [address] [facility] (ABNORMAL) Comprehensive Metabolic Panel (06/29/2018 7:25 PM CDT) Patholo gist Method Time Signature Potassium, S 4.7 3.6 - 5.2 06/29/2018 [facility] mmol/L 8:45 PM CDT LABORATORIES - [facility] Sodium, S 136 135 - 145 06/29/2018 [facility] mmol/L 8:45 PM CDT LABORATORIES - [facility] Chloride, S 100 98 - 107 06/29/2018 [facility] mmol/L 8:45 PM CDT LABORATORIES - [facility] Bicarbonate, S 18 (L) 22 - 29 06/29/2018 [facility] mmol/L 8:45 PM CDT LABORATORIES [facility] Anion Gap 18 (H) 7 - 15 06/29/2018 [facility] 8:45 PM CDT LABORATORIES [facility] BUN (Blood Urea 15 6 - 21 06/29/2018 [facility] Nitrogen), S mg/dL 8:45 PM CDT LABORATORIES [facility] Creatinine 0.81 0.59 - 06/29/2018 [facility] 1.04 mg/dL 8:45 PM CDT LABORATORIES [facility] eGFR-Non 79 >=60 06/29/2018 [facility] Black/ mL/min/BSA 8:45 PM T LABORATORIES [facility] Comment: ----ADDITIONAL INFORMATION---- Estimated GFR calculated using the 2009 CKD_EPI creatinine equation. eGFR-Black/ >90 >=60 mL/min/BSA 06/29/2018 8:[address] [facility] Comment: ----ADDITIONAL INFORMATION---- Estimated GFR calculated using the 2009 CKD_EPI creatinine equation. Calcium, Total, S 9.7 8.8 - 10.2 06/29/2018 8:45 PM [facility] mg/dL T [facility] Glucose, S 123 70 - 140 mg/dL 06/29/2018 8:45 PM [facility] Protein, Total, S 7.2 6.3 - 7.9 g/dL 06/29/2018 8:45 P M [facility] Albumin, S 4.0 3.5 - 5.0 g/dL 06/29/2018 8:46 PM [facility] Aspartate 20 8 - 43 U/L 06/29/2018 9:24 PM [facility] Aminotransferase (AST), S T LABO RATORIES [facility] Alkaline Phosphatase, S 83 35 - 104 U/L 06/29/2018 8: 45 PM [facility] Alanine Aminotransferase 25 7 - 45 U/L 06/29/2018 10: 54 [facility] (ALT), S PM [facility] Bilirubin, Total, S 0.7 <=1.2 mg/dL 06/29/2018 8:45 PM [facility] Specimen Anatomical Collection Method Collection Time Receive d Time (Source) Location / / Volume Laterality Blood (Blood, 06/29/2018 7:25 PM 06/30/19 19 7:49 Venous) CDT PM CDT Alysha Charles P.A.-C. LAB BLOOD ADD-ON Performing Organization Address City/State/ZIP Code Phon e Number [facility] LABORATORIES - [address] [place], [place] [address] [facility] ECG 12 Lead (06/29/2018 6:26 PM CDT) [facility] gist Method Time Signature Ventricular 148 BPM MUSE Rate ECG/Min QRSD Interval 88 ms MUSE QT Interval 350 ms MUSE QTC Interval 549 ms MUSE P [place] -118 degrees MUSE R [place] 96 degrees MUSE T Wave [place] 4 degrees MUSE CODED DIAGNOSIS Atrial MUSE [...] tartrate tablet 100 mg (LOPRESSOR) 08 (Gi jsuto - Provider: Juany Callaway R.N.)2103 (Given - [...] mg of calcium, oral, Every 2 hour MI N, indigestion, Not to exceed 12 tablets [...] R.N.) 1 application, topical, 3 times daily MI N, muscle/joint pain, Starting on Fri06/30/18 at [...] documented as of this encounter Care Teams Night Shift Relationship Specialty Start Date End Date Vianney Barrera APRN, C.N.P., PCP - General Internal Medicine 07/06/18 07/26/18 M.S.N. [address] [place] [address] documented as of this encounter
--- OUTSIDE RECORDS SUMMARY | 2022-01-03 11:04 | XMS_ITS | Encounter Summary ---
:1955 Author Organization [facility] Address [address] [place] [address] Care Team Providers Name Role Phone Unavailable Primary Care Provider Unavailable Encounter Details Date Type Department Care Team Description 05/04/2013 Hospital Encounter HX RST FIBROMYALGIA Verito Collins, NO, C.N.P., D.N.P., M.S. [address] [place] [phone] (Wo rk) Social History Tobacco Use Types [...] do you attend mandaeism or Never 2018 worship services? Do you belong to any clubs [...]
--- OUTSIDE RECORDS SUMMARY | 2022-01-03 11:04 | XMS_ITS | Encounter Summary ---
:1955 Author Organization [facility] Address [address] [place] [address] Care Team Providers Name Role Phone Unavailable [...] do you attend jewish or Never 2018 sikh services? Do you [...]
--- OUTSIDE RECORDS SUMMARY | 2022-01-03 11:04 | XMS_ITS | Encounter Summary ---
:1955 Author Organization [facility] Address [address] [place] [address] Care Team Providers Name Role Phone Unavailable [...] do you attend baptist or Never 2018 quaker services? Do you [...]
--- OUTSIDE RECORDS SUMMARY | 2022-01-03 11:04 | XMS_ITS | Encounter Summary ---
:1955 Author Organization [facility] Address [address] [place] [address] Care Team Providers Name Role Phone Unavailable [...] do you attend rastafari or Never 2018 spiritism services? Do you [...]
--- OUTSIDE RECORDS SUMMARY | 2022-01-03 11:04 | XMS_ITS | Encounter Summary ---
:1955 Author Organization [facility] Address [address] [place] [address] Care Team Providers Name Role Phone Unavailable [...] or relatives? How often do you attend gnosticist or Never 2018 buddhist services? Do you belong to any clubs or No 02/26/2019 organizations such as gnosticist groups, unions, fraternal or athletic groups, or [...]
--- OUTSIDE RECORDS SUMMARY | 2022-01-03 11:04 | XMS_ITS | Encounter Summary ---
:1955 Author Organization [facility] Address [address] [place] [address] Care Team Providers Name Role Phone Unavailable Primary Care Provider Unavailable Encounter Details Date Type Department Care Team Description 05/04/2013 Hospital Encounter HX RST [facility] [address] [place] [phone] Social History Tobacco Use Types Packs/Day Years [...] do you attend christianity or Never 2018 sikh services? Do you [...]
== END 2021-12-27 04:01 | disposition home or self-care (01) ==
LOC: AMB 01-03 10:55
PROVIDERS: PCP Family Medicine; Visit Provider Emergency Medicine
DX: R07.89 Other chest pain (principal)
CPT/HCPCS: A0425; A0427

== ENCOUNTER 2021-12-27 04:18 | Emergency (ER) | payer MEDICARE, MEDICAID, SELFPAY ==
[2021-12-27] VITALS (7 sets, daily range): BP systolic 107–137; BP diastolic 64–85; PULSE 66–71; RESP 16–20; TEMP 35.8; O2SAT 94–100; BMI 33.1
--- NOTE | 2021-12-27 04:34 | ED.GENADULT ---
HPI - General Adult General Date Seen: 12/27/21 Chief complaint: Chest Pain Stated complaint: Chest pain Time Seen by Provider: 12/27/21 04:25 Source: patient History of Present Illness HPI narrative: Patient is a 66-year-old woman who lives at [place]. She says that she woke up at 3:00 a.m. in the morning and went to the bathroom. Typically she can fall back asleep but on return to bed she found herself unable to sleep. A little while later she developed central chest pain from her sternum down to her epigastrium. She says that it felt like somebody was tearing her chest apart. They tried giving her nitroglycerin at [place]. This apparently dropped her blood pressure to 80 systolic. At [place] this did not improve her chest pain but on arrival here she says her chest pain is gone. She notes some nausea but says this is pretty typical for her, she says she has chronic problems with her stomach. Not had any vomiting. She denies diaphoresis or shortness of breath. She denies recent cough or fever. She has not had any unusual lower leg pain or swelling. She says she has had chest pain like this before. Review of her records show other visits for atypical chest pain without cause found. She does have a history of diabetes, atrial fibrillation, heart failure, hypertension, cardiomyopathy as well as fibromyalgia, anxiety, depression among others. I do not see history of specific coronary artery disease. She does not smoke. Related Data Home Medications Medication Instructions Recorded Confirmed acetaminophen 325 mg tablet 650 mg PO Q6H PRN pain 12/27/21 12/27/21 albuterol sulfate 90 mcg/actuation 2 puff inhalation Q4H PRN 12/27/21 12/27/21 aerosol inhaler (Ventolin HFA) amitriptyline 50 mg tablet 50 mg PO HS 12/27/21 12/27/21 amlodipine 10 mg tablet 10 mg PO HS 12/27/21 12/27/21 antacid See Rx Instructions PO DAILY PRN 12/27/21 12/27/21 budesonide 0.5 mg/2 mL suspension 0.5 mg inhalation BID 12/27/21 12/27/21 for nebulization diphenhydramine HCl 25 mg capsule 25 mg PO Q8H PRN allergic symptoms 12/27/21 12/27/21 (Banophen) glipizide 5 mg tablet 5 mg PO DAILY 12/27/21 12/27/21 hydroxyzine HCl 25 mg tablet 25 mg PO HS PRN anxiety 12/27/21 12/27/21 levothyroxine 25 mcg tablet 25 mcg PO DAILY 12/27/21 12/27/21 metoprolol succinate 50 mg 50 mg PO DAILY 12/27/21 12/27/21 tablet,extended release 24 hr nitroglycerin 0.4 mg sublingual 0.4 mg sublingual Q5M PRN 12/27/21 12/27/21 tablet polyethylene glycol 3350 17 17 g PO DAILY PRN 12/27/21 12/27/21 gram/dose oral powder rizatriptan 5 mg tablet 5 mg PO DAILY PRN 12/27/21 12/27/21 sennosides 8.6 mg tablet (senna) 8.6 mg PO BID PRN 12/27/21 12/27/21 simvastatin 20 mg tablet 20 mg PO HS 12/27/21 12/27/21 warfarin 2 mg tablet mg 12/27/21 warfarin 4 mg tablet mg 12/27/21 Allergies Allergy/AdvReac Type Severity Reaction Status Date / Time No Known Drug Allergies Allergy Verified 12/27/21 04:35 Review of Systems Status of ROS: Reports: 10 or more systems reviewed and unremarkable except as noted in History and below [facility] Social History Smoking Status: Never smoker How often do you have a drink containing alcohol: never AUDIT-C Alcohol total score: 0 Non-prescribed substance use: denies use Exam Narrative: Exam Narrative: Vital signs as noted above. In general, an alert, well-appearing patient. Looks comfortable. Breathing easily. Head: Normocephalic, atraumatic. Eyes: Pupils are equal reactive. Extraocular movements are full. Conjunctivae are normal. ENT: Mucous membranes are moist. Throat is normal. Neck: Supple without lymphadenopathy. Heart: Regular rate and rhythm. No murmur or rub. Lungs: Clear bilaterally. No increased work of breathing, crackles or wheezes. Abdomen: Soft and nondistended. Diffuse mild tenderness which she says is normal for her. No rebound guarding or rigidity. No organomegaly. Extremities: Well perfused. No edema. No calf tenderness. Pulses intact. Neurologic: Patient is alert and oriented to person and place. Speech is fluent. Face is symmetric. Moves all extremities equally. Affect: Normal. Skin: Warm and dry. Well perfused. Const: Vital Signs, click to edit/add: Vital Signs - 24 hr 12/27/21 04:23 12/27/21 05:00 12/27/21 05:30 Temperature 96.5 F L Pulse Rate [Right Pulse Oximeter] 67 66 67 Respiratory Rate 16 20 18 Blood Pressure [Le ft Upper Arm] 107/72 Blood Pressure [Ri ght Upper Arm] 118/72 119/64 Pulse Oximetry 95 95 94 Oxygen Delivery Me thod Room Air Room Air Room Air 12/27/21 06:00 12/27/21 06:30 12/27/21 07:00 Temperature Pulse Rate [Right Pulse Oximeter] 67 71 67 Respiratory Rate 18 18 18 Blood Pressure [Le ft Upper Arm] Blood Pressure [Ri ght Upper Arm] 123/77 130/75 137/85 Pulse Oximetry 94 98 100 Oxygen Delivery Me thod Room Air Room Air Room Air 12/27/21 04:31 Temperature Pulse Rate [Right Pulse Oximeter] Respiratory Rate Blood Pressure [Le ft Upper Arm] Blood Pressure [Ri ght Upper Arm] Pulse Oximetry 98 Oxygen Delivery Me thod Documenting provider has reviewed patient's vital signs: yes Course Course Hospital Course: On arrival, patient was monitored on oximetry and cardiac monitoring. She had an EKG which by my review shows a normal sinus rhythm, ventricular rate of 67 beats per minute. No acute ST segment changes. QT is somewhat prolonged at 490 milliseconds. I reviewed her records from [place]. I reviewed her previous medical records as well. Her last visit here for chest pain was in fall at which time workup was negative; she had a single troponin at that time because she had had pain for 4 hours at that time. Tonight, she only had pain for about an hour, it is now gone. I will do a set of 2 troponins. Labs are otherwise pending including a CBC, metabolic panel, D-dimer, BNP. Diagnostic considerations include coronary artery disease, PE, pneumonia, pneumothorax, congestive heart failure, biliary colic, cholecystitis, pancreatitis, aortic dissection. Given that pain is resolved, we will await lab results before ordering further imaging. Blood pressures improved as nitroglycerin has worn off. Labs here reassuring. CBC is normal aside from a mildly elevated platelet count. INR is therapeutic. D-dimer is normal, I do not think this represents PE. LFTs normal with the exception of mild transaminase elevations. Lipase was negative. CRP is normal. BNP is 77. Troponin at time 0 and 2 hours were both 0. Chest x-ray by my review did not show any acute findings. Final radiology report is read as showing some chronic interstitial changes but nothing acute. Patient has remained pain-free while here. Return as needed for severe or worsening pain. Follow up with primary care for recheck in the next week. Vital Signs Vital signs: Initial Vital Signs Temperature 96.5 F L 12/27/21 04:23 Temperature Source Temporal Artery Scan 12/27/21 04:23 Pulse Rate 67 12/27/21 04:23 Respiratory Rate 16 12/27/21 04:23 Blood Pressure 107/72 12/27/21 04:23 Blood Pressure Mean 83 12/27/21 04:23 Blood Pressure Position Supine 12/27/21 04:23 Pulse Oximetry 95 12/27/21 04:23 Oxygen Delivery Method 12/27/21 04:23 Vital Signs Temperature 96.5 F L 12/27/21 04:23 Pulse Rate 67 12/27/21 04:23 Respiratory Rate 16 12/27/21 04:23 Blood Pressure 107/72 12/27/21 04:23 Pulse Oximetry 95 12/27/21 04:23 Oxygen Delivery Method 12/27/21 04:23 Temperature 96.5 F L 12/27/21 04:23 Pulse Rate 67 12/27/21 07:00 Respiratory Rate 18 12/27/21 07:00 Blood Pressure 137/85 12/27/21 07:00 Pulse Oximetry 100 12/27/21 07:00 Oxygen Delivery Method 12/27/21 07:00 Medical Decision Making Lab Data Labs: Lab Results 12/27/21 12/27/21 12/27/21 Range/Units 04:45 04:45 04:45 WBC 8.63 (4.50-11.00) K/uL RBC 4.19 (4.00-5.20) m/uL Hgb 12.0 (12.0-16.0) gm/dL Hct 36.7 (33.0-51.0) % MCV 88 (80-100) fL MCH 29 (26-34) pg MCHC 33 (32-36) gm/dL RDW Coeff of Anamika 13.8 (11.5-15.5) % Plt Count 470 H (140-440) K/uL Neut % (Auto) 43.7 (42.0-72.0) % Lymph % (Auto) 42.6 (20-44) % [place] % (Auto) 7.2 (0.0-11.0) % Eos % (Auto) 5.1 (0.0-7.0) % Baso % (Auto) 1.3 (0.0-3.0) % Neut # (Auto) 3.77 (1.7-7.0) K/uL Lymph # (Auto) 3.68 H (0.90-2.90) K/uL [place] # (Auto) 0.60 (0.00-0.90) K/UL Eos # (Auto) 0.44 (0.00-0.50) K/uL Baso # (Auto) 0.11 (0.00-0.30) K/uL Abs Immat Gran (auto) 0.01 (0.00-0.30) K/uL INR (0.91-1.10) D-Dimer Quant (PE/DVT) < 0.27 (0.00-0.50) ug/ml Sodium 136 (135-149) mmol/L Potassium 3.8 (3.6-5.1) mmol/L Chloride 101 (96-114) mmol/L Carbon Dioxide 26 (20-32) mmol/L BUN 14 (7-30) mg/dL Creatinine 0.9 (0.5-1.5) mg/dL Estimated Creat Clear 51.14 Estimated GFR 71 ml/min Glucose 167 H (60-115) mg/dL Calcium 8.8 (8.4-10.6) mg/dL Total Bilirubin 0.3 (0.1-1.5) mg/dL Direct Bilirubin 0.0 (0.0-0.5) mg/dL AST 38 H (12-35) U/L ALT 45 H (4-35) U/L Alkaline Phosphatase 105 (40-150) U/L C-Reactive Protein 0.9 (0.5-1.0) mg/dL NT-Pro-B Natriuret Pep 77 (0-125) PG/mL Total Protein 7.6 (6.0-8.3) g/dL Albumin 4.3 (3.3-5.0) g/dL Lipase 42 (23-300) U/L POC Troponin I (0.01-0.04) ng/ml 12/27/21 12/27/21 12/27/21 Range/Units 04:45 04:51 06:40 WBC (4.50-11.00) K/uL RBC (4.00-5.20) m/uL Hgb (12.0-16.0) gm/dL Hct (33.0-51.0) % MCV (80-100) fL MCH (26-34) pg MCHC (32-36) gm/dL RDW Coeff of Anamika (11.5-15.5) % Plt Count (140-440) K/uL Neut % (Auto) (42.0-72.0) % Lymph % (Auto) (20-44) % [place] % (Auto) (0.0-11.0) % Eos % (Auto) (0.0-7.0) % Baso % (Auto) (0.0-3.0) % Neut # (Auto) (1.7-7.0) K/uL Lymph # (Auto) (0.90-2.90) K/uL [place] # (Auto) (0.00-0.90) K/UL Eos # (Auto) (0.00-0.50) K/uL Baso # (Auto) (0.00-0.30) K/uL Abs Immat Gran (auto) (0.00-0.30) K/uL INR 2.72 H (0.91-1.10) D-Dimer Quant (PE/DVT) (0.00-0.50) ug/ml Sodium (135-149) mmol/L Potassium (3.6-5.1) mmol/L Chloride (96-114) mmol/L Carbon Dioxide (20-32) mmol/L BUN (7-30) mg/dL Creatinine (0.5-1.5) mg/dL Estimated Creat Clear Estimated GFR ml/min Glucose (60-115) mg/dL Calcium (8.4-10.6) mg/dL Total Bilirubin (0.1-1.5) mg/dL Direct Bilirubin (0.0-0.5) mg/dL AST (12-35) U/L ALT (4-35) U/L Alkaline Phosphatase (40-150) U/L C-Reactive Protein (0.5-1.0) mg/dL NT-Pro-B Natriuret Pep (0-125) PG/mL Total Protein (6.0-8.3) g/dL Albumin (3.3-5.0) g/dL Lipase (23-300) U/L POC Troponin I 0.00 L 0.00 L (0.01-0.04) ng/ml Discharge Plan Discharge Clinical Impression: Atypical chest pain Patient Disposition: Home, Self-Care Condition: Improved Instructions: Chest Pain (ED) Additional Instructions: Follow-up with primary care next week for recheck. For any severe or persistent symptoms, return to the emergency department. Prescriptions: No Action acetaminophen 325 mg tablet 650 mg PO Q6H PRN (Reason: pain) amitriptyline 50 mg tablet 50 mg PO HS amlodipine 10 mg tablet 10 mg PO HS budesonide 0.5 mg/2 mL suspension for nebulization 0.5 mg inhalation BID glipizide 5 mg tablet 5 mg PO DAILY levothyroxine 25 mcg tablet 25 mcg PO DAILY metoprolol succinate 50 mg tablet extended release 24 hr 50 mg PO DAILY simvastatin 20 mg tablet 20 mg PO HS antacid suspension See Rx Instructions PO DAILY PRN Rx Instructions: 5-10ml orally daily PRN; sennosides [senna] 8.6 mg tablet 8.6 mg PO BID PRN rizatriptan 5 mg tablet 5 mg PO DAILY PRN Rx Instructions: may repeat once after 2 hours polyethylene glycol 3350 17 gram/dose powder 17 g PO DAILY PRN albuterol sulfate [Ventolin HFA] 90 mcg/actuation HFA aerosol inhaler 2 puff INHALATION Q4H PRN diphenhydramine HCl [Banophen] 25 mg capsule 25 mg PO Q8H PRN (Reason: allergic symptoms) Rx Instructions: 1-2 caps prn hydroxyzine HCl 25 mg tablet 25 mg PO HS PRN (Reason: anxiety) nitroglycerin 0.4 mg tablet, sublingual 0.4 mg sublingual Q5M PRN Rx Instructions: max 3 tabs within 15 minutes warfarin 2 mg tablet Rx Instructions: DIRECTED warfarin 4 mg tablet Rx Instructions: DIRECTED Follow Up/Referrals: Kandace Mckeon DO [Primary Care Provider] - Stand Alone Forms: MyHealth Info Instructions
[2021-12-27] MEDS: 0.9 % SODIUM CHLORIDE 500 ML 500 ML IV (05:00)
--- OUTSIDE RECORDS SUMMARY | 2021-12-27 05:19 | XMS_ITS | Encounter Summary ---
:1955 Author Organization [facility] Address [address] [place] [address] Care Team Providers Name Role Phone Elsewhere, Pcp Primary Care Provider Unavailable Reason for Referral MRI/CAT/PET Scan (Routine) - Closed Specialty Diagnoses / Procedures Referred By Contact Refer red To Contact Radiology Diagnoses [facility] Ally Bar M.D. [facility] Procedures CT Chest without IV Contrast [address] [place] [address] Referral ID Status Reason Start Date Expiration Date Visits Requ ested Visits Authorized [id number] Closed 05/03/2021 05/03/2022 1 1 CTOR STRATEGY Outpatient (Routine) - Closed Specialty Diagnoses / Procedures Referred By Contact Refer red To Contact Radiology Diagnoses [facility] Ally Bar M.D. [facility] [address] [place] [address] Referral ID Status Reason Start Date Expiration Date Visits Requ ested Visits Authorized [id number] Closed 05/03/2021 05/03/2022 1 1 CTOR STRATEGY Encounter Details Date Type Department Care Team Description 05/03/2021 Orders Only Department of Urology Ally Bar [facility] ss Kidney (Primary in [place], Bess Dx) [place] [address] [facility] [place], [place] [id number] [phone] Social History Tobacco Use Types Packs/Day Years Used Date Smoking Tobacco: Never Smokeless Tobacco: Never Comments: has a roommate that smokes Alcohol Use Standard Drinks/Week Comments Not Currently 0 (1 standard drink = 0.6 oz pure alcoho l) Alcohol Habits Answer Date Recorded How often do you have a drink containing alcohol? Monthly or less 03/30/2020 How many drinks containing alcohol do you have on a 1 or 2 03/30/2020 typical day when you are drinking? How often do you have six or more drinks on one Never 03/30/2020 occasion? Comment: Not asked Social Isolation Answer Date Recorded In a typical week, how many times do you More than three javon es a week 03/30/2020 talk on the phone with family, friends, or neighbors? How often do you get together with friends More than three t imes a week 03/30/2020 or relatives? How often do you attend spiritism or Never 2018 shinto services? Do you belong to any clubs or No 02/26/2019 organizations such as spiritism groups, unions, fraternal or athletic groups, or school groups? How often do you attend meetings of the More than 4 times pe r year 03/30/2020 clubs or organizations you belong to? Are you now , , , Never 03/30/2020 , never or living with a partner? Physical Activity Answer Date Recorded On average, how many days per week do you engage in moderate to 0 days 02/26/2019 strenuous exercise (like walking fast, running, jogging, dancing, swimming, biking, or other activities that cause a light or heavy sweat)? On average, how many minutes do you engage in exercise at th is 60 min 03/30/2020 level? Stress Answer Date Recorded Do you feel stress - tense, restless, nervous, or anxious, o r Very much 02/26/2019 unable to sleep at night because your mind is troubled all the time - these days? Financial Resource Strain Answer Date Recorded How hard is it for you to pay for the very basics like food, Hard 02/26/2019 housing, medical care, and heating? Food Insecurity Answer Date Recorded Within the past 12 months, you worried that your food Often true 03/30/2020 would run out before you got money to buy more. Within the past 12 months, the food you bought just Sometime s true 03/30/2020 didn't last and you didn't have money to get more. Transportation Needs Answer Date Recorded In the past 12 months, has lack of transportation kept you f rom Yes 02/26/2019 medical appointments or from getting medications? In the past 12 months, has lack of transportation kept you f rom Yes 03/30/2020 meetings, work, or getting things needed for daily living? Education Answer Date Recorded What is the highest level of school you have completed or th e 8th grade 03/30/2020 highest degree you have received? Sex Assigned at Date Recorded Not on file documented as of this encounter Plan of Treatment Scheduled Referrals Name Type Priority Associated Order Schedule Diagnoses Radiology - Outpatient RAD - Routine [facility] Kidney Expected: Ablation Consult Referral (most inpatients 022 (Clinic) and all (Approximate), outpatients) Expires: 07/31/2022 documented as of this encounter Results CT Chest without IV Contrast (05/03/2021 1:35 PM DIRECTOR STRATEGY) Anatomical Region Laterality Modality Chest, Thoracic RST LOS, Thoracic ARZ N/A Co mputed Tomography, Computed LOS, Thoracic FLA LOS Tomography Specimen (Source) Anatomical Collection Method Collection Time Re ceived Time Location / / Volume Laterality 05/03/2021 1:42 PM DIRECTOR STRATEGY Impressions 05/03/2021 1:53 PM DIRECTOR STRATEGY 1. Increased clustered nodularity with new dominant 11 x 7 mm nodule in the posterior basal left lower lobe, indeter minate but likely infectious/inflammatory rather than neop lastic. CT follow-up suggested in 3 months. 2. Stable 5 x 4 mm left upper lobe nodul e which has decreased since 08/18/2019. 3. Scattered additional tiny nodules are stable since 03/30/2020. Narrative 05/03/2021 1:53 PM DIRECTOR STRATEGY EXAM: CT CHEST WITHOUT IV CONTRAST COMPARISON: [facility] CT chest 01/07/2 021. FINDINGS: The 5 x 4 mm solid nodule in the left up per lobe (series 3 image 232) is unchanged compared to 03/30/2020, decrea sed from 7 x 6 mm on 08/18/2019, new since 04/16/2019. Increased clustered nodularity associate d with partially calcified peripheral endobronchial plugging in the posterior basal right lower lobe (images [id number]) with new dominant 11 x 7 mm nodule (imag e 292). Multiple additional scattered tiny nodul es are stable since 03/30/2020. Scattered tiny calcified granulomas. No thoracic lymphadenopathy. No effusion s. Slight coronary artery and mild mitral a nnulus calcification. Left atrial enlargement. Moderate esophageal hiatal hernia. Negative adrenal glands. Cholecystectomy . Diffuse hepatic steatosis. Degenerative change thoracic spine. Unch anged anterior compression of T8 and superior endplate compression of T12. Procedure Note Nikunj Bolton M.D. - 05/03/2021Formattin g of this note might be different from the original. EXAM: CT CHEST WITHOUT IV CONTRAST COMPARISON: [facility] CT chest . FINDINGS: The 5 x 4 mm solid nodule in the left up per lobe (series 3 image 232) is unchanged compared to 03/30/2020, decrea sed from 7 x 6 mm on 08/18/2019, new since 04/16/2019. Increased clustered nodularity associate d with partially calcified peripheral endobronchial plugging in the posterior basal right lower lobe (images [id number]) with new dominant 11 x 7 mm nodule (imag e 292). Multiple additional scattered tiny nodul es are stable since 03/30/2020. Scattered tiny calcified granulomas. No thoracic lymphadenopathy. No effusion s. Slight coronary artery and mild mitral a nnulus calcification. Left atrial enlargement. Moderate esophageal hiatal hernia. Negative adrenal glands. Cholecystectomy . Diffuse hepatic steatosis. Degenerative change thoracic spine. Unch anged anterior compression of T8 and superior endplate compression of T12. IMPRESSION: 1. Increased clustered nodularity with n ew dominant 11 x 7 mm nodule in the posterior basal left lower lobe, indeter minate but likely infectious/inflammatory rather than neop lastic. CT follow-up suggested in 3 months. 2. Stable 5 x 4 mm left upper lobe nodul e which has decreased since 08/18/2019. 3. Scattered additional tiny nodules are stable since 03/30/2020. Ally Bar M.D. IMG CT PROCEDURES documented in this encounter Visit Diagnoses Diagnosis Mass Kidney - Primary Mass Kidney documented in this encounter Additional Health Concerns Assessment Noted Time PHQ-9 Depression Total Score: 11 05/04/2013 4:05 PM CS T documented as of this encounter Care Teams Programming Director Relationship Specialty Start Date End Date Elsewhere, Pcp PCP - General Internal Medicine 07/27/18 documented as of this encounter
--- OUTSIDE RECORDS SUMMARY | 2021-12-27 05:19 | XMS_ITS | Encounter Summary ---
:1955 Author Organization [facility] Address [address] [place] [address] Care Team Providers Name Role Phone Elsewhere, Pcp Primary Care Provider Unavailable Reason for Referral Outpatient (Routine) - Authorized Specialty Diagnoses / Procedures Referred By Contact Refer red To Contact Diagnoses Arun Lee M.D. [facility] Procedures US Assisted Guidance [address] [place], [place] [phone] Referral ID Status Reason Start Date Expiration Date Visits V isits Requested Authorized [id number] Authorized 05/08/2021 05/08/2022 1 1 RI/CAT/PET Scan (Routine) - Authorized Specialty Diagnoses / Procedures Referred By Contact Refer red To Contact Radiology Diagnoses Arun Lee M.D. [facility] Procedures CT Abdomen Ablation [address] [place] [address] Referral ID Status Reason Start Date Expiration Date Visits V isits Requested Authorized [id number] Authorized 05/08/2021 05/08/2022 1 1 utpatient (Routine) - Authorized Specialty Diagnoses / Procedures Referred By Contact Refer red To Contact Diagnoses Arun Lee M.D. [facility] Procedures US Kidney Left [address] [place] [address] Referral ID Status Reason Start Date Expiration Date Visits V isits Requested Authorized [id number] Authorized 05/08/2021 05/08/2022 1 1 utpatient (Routine) - Authorized Specialty Diagnoses / Procedures Referred By Contact Refer red To Contact Vascular Medicine Diagnoses [facility] Arun Waterman M.D. [facility] [address] [place] [address] Referral ID Status Reason Start Date Expiration Date Visits V isits Requested Authorized [id number] Authorized 05/08/2021 05/08/2022 1 1 utpatient (Routine) - Authorized Specialty Diagnoses / Procedures Referred By Contact Refer red To Contact Anesthesiology Diagnoses [facility] Arun Waterman M.D. [facility] [address] [place], [place] [address] Referral ID Status Reason Start Date Expiration Date Visits V isits Requested Authorized [id number] Authorized 05/08/2021 05/08/2022 1 1 SCHOOL SUSPENSION COORDINATOR Encounter Details Date Type Department Care Team Description 05/08/2021 Orders Only Department of [facility] (Primary Radiology, Moise MortonNEdilma Sánchez) [facility], in [place], [place] (Work) [address] [place] [id number] Social History Tobacco Use Types Packs/Day Years [...] or relatives? How often do you attend synagogue or Never 2018 jew services? Do you belong to any clubs or No 02/26/2019 organizations such as synagogue groups, unions, fraternal or athletic groups, or [...] of this encounter Plan of Treatment Scheduled Orders Name Type Priority Associated Order Schedule Diagnoses Prothrombin Time (PT) Lab Routine [facility] Expect ed: 05/24/2021, Expires: 08/05/2022 CBC with Differential, Lab Routine [facility] Expec carmine: Blood 05/14/2021, Expires: 08/05/2022 Creatinine with Lab Routine [facility] Expected: Estimated GFR 05/14/2021, Expires: 08/05/2022 Prothrombin Time (PT) Lab Routine [facility] Expect ed: 05/14/2021, Expires: 08/05/2022 APTT (Activated Partial Lab Routine [facility] Expe cted: Thromboplastin Time) 022, Expires: 08/05/2022 Comprehensive Metabolic Lab Routine [facility] Expe cted: Panel 05/14/2021, Expires: 08/05/2022 US Kidney Left Imaging RAD - Routine (most [facility] Expect ed: inpatients and all 2, outpatients) Expires: 08/05/2022 CT Abdomen Ablation Imaging RAD - Routine (most [facility] E xpected: inpatients and all 2, outpatients) Expires: 08/05/2022 US Assisted Guidance Imaging RAD - Routine (most [facility] Expected: inpatients and all , outpatients) Expires: 08/05/2022 Scheduled Referrals Name Type Priority Associated Order Schedule Diagnoses Preoperative Outpatient Referral Routine [facility] Expected : Evaluation INGRID consult 05/14, (clinic) Expires: 08/05/2022 Vascular Medicine - Outpatient Referral Routine [facility] E xpected: Thrombophilia consult 2021, (clinic) Expires: 08/05/2022 documented as of this encounter Visit Diagnoses Diagnosis [facility] - Primary documented in this encounter Additional Health Concerns Assessment Noted Time PHQ-9 Depression Total Score: 11 05/04/2013 4:05 PM CS T documented as of this encounter Care Teams Cell Tester Relationship Specialty Start Date End Date Elsewhere, Pcp PCP - General Internal Medicine 07/27/18 documented as of this encounter
--- OUTSIDE RECORDS SUMMARY | 2021-12-27 05:19 | XMS_ITS | Encounter Summary ---
:1955 Author Organization [facility] Address [address] [place] [address] Care Team Providers Name Role Phone Elsewhere, Pcp Primary Care Provider Unavailable Reason for Visit MRI/CAT/PET Scan (Routine) - Authorized Specialty Diagnoses / Procedures Referred By Contact Refer red To Contact Radiology Diagnoses [facility] Arun Waterman M.D. [facility] Procedures CT Abdomen Ablation [address] [place], [place] [address] Referral ID Status Reason Start Date Expiration Date Visits V isits Requested Authorized [id number] Authorized 05/08/2021 05/08/2022 1 1 Encounter Details Date Type Department Care Team Description 06/26/2021 Hospital Encounter Department of Arun Waterman M.D. [address] [place] [phone] Canceled (Patient: Radiology, Wily Dale M.D. [address] [place] [phone] Request) [facility] in [place], [place] [address] [place] [address] Social History Tobacco Use Types Packs/Day Years [...] or relatives? How often do you attend uatsdin or Never 2018 mormon services? Do you belong to any clubs or No 02/26/2019 organizations such as uatsdin groups, unions, fraternal or athletic groups, or [...] on file documented as of this encounter Medications at Time of Discharge Medication Sig Dispensed Refills Start Date End Date acetaminophen (TYLENOL) Take 325 mg by mouth 0 325 mg tablet every 4 (four) hours as needed for pain. albuterol (PROAIR HFA) Inhale 1-2 puffs every 1 Inhaler 11 0 07/06/2018 90 mcg/actuation inhaler 4 (four) hours as needed for shortness of breath. alum-mag Take 5-10 mL by mouth 0 hydroxide-simeth every 6 (six) hours as (MAALOX) 200-200-20 mg/5 needed for indigestion. mL suspension amLODIPine (NORVASC) 5 Take 5 mg by mouth 0 mg tablet daily. artificial Administer 1 drop into 0 tears,hypromellose, both eyes as needed for (ISOPTO TEARS) 0.5 % dry eyes. ophthalmic solution calcium carbonate Chew 215 mg of calcium 0 (Antacid Calcium) 500 mg daily as needed for (215 mg calcium) indigestion or chewable tablet heartburn. clotrimazole-betamethaso Apply 1 application 0 ne (LOTRISONE) 1-0.05 % topically 2 (two) times cream a day. diphenhydrAMINE Take 25 mg by mouth as 0 (BENADRYL) 25 mg capsule needed. DULoxetine (CYMBALTA) 60 Take 60 mg by mouth. 0 1 04/17/[address] capsule famotidine (PEPCID) 10 Take 20 mg by mouth. 0 mg tablet fluticasone Inhale 1 puff daily. 0 furoate-vilanteroL (BREO ELLIPTA DISKUS) 200-25 mcg/act inhaler furosemide (LASIX) 20 mg Take 20 mg by mouth. 0 0 11/12/2019 tablet guaifenesin (DIABETIC Take 5-10 mL by mouth 0 TUSSIN EX ORAL) as needed. levothyroxine Take 25 mcg by mouth 0 (SYNTHROID, LEVOTHROID) every morning before 25 mcg tablet breakfast. magnesium hydroxide Take 15-30 mL by mouth 0 (MILK OF MAGNESIA ORAL) as needed. metFORMIN (GLUCOPHAGE) Take 850 mg by mouth 2 0 850 mg tablet (two) times a day with meals. methyl Apply 1 application 0 salicylate-menthol topically every 2 (two) (BENGAY) ointment hours as needed for muscle/joint pain. methyl Apply topically. 0 08/30/2019 salicylate-menthol (ICY HOT) 30-10 % cream metoprolol tartrate Take 1 tablet (50 mg 0 2019 (LOPRESSOR) 50 mg tablet total) by mouth 2 (two) times a day. For heart rate control. nitroglycerin Place 0.4 mg under the 0 (NITROSTAT) 0.4 mg SL tongue every 5 (five) tablet minutes as needed for chest pain. Nystop 100,000 unit/gram 0 02/02/2020 powder omeprazole (PriLOSEC) 40 Take 40 mg by mouth [address] capsule every morning before breakfast. potassium chloride Take 20 mEq by mouth 0 (KLOR-CON M/KDUR) 20 mEq daily. ER tablet rizatriptan (MAXALT) 5 Take 1 tablet (5 mg 9 tablet 0 06/22 mg tablet total) by mouth as needed for migraine. rizatriptan (MAXALT) 5 Take 1 tablet by mouth 0 0 08/31/2019 mg tablet one time if needed for Migraine. May repeat every 2 hours for max dose of 30mg/24hours. sennosides (SENOKOT) 8.6 Take 8.6 mg by mouth. 0 11/25/2019 mg tablet SENNOSIDES ORAL Take 1 tablet by mouth 0 as needed. simvastatin (ZOCOR) 20 Take 1 tablet (20 mg 0 mg tablet total) by mouth at bedtime. Hyperlipidemia Systane, propylene daily. 0 03/24/2019 glycol, 0.4-0.3 % ophthalmic solution topiramate (TOPAMAX) 25 Take 25 mg by mouth 0 mg tablet daily. warfarin (COUMADIN) 2 mg Take 2 mg by mouth as 0 tablet directed. Take as directed per After Visit Summary. Takes 3 tabs on Friday and Friday, takes 2.5 tabs all other days of the week documented as of this encounter Plan of Treatment Not on filedocumented as of this encounter Visit Diagnoses Not on filedocumented in this encounter Additional Health Concerns Assessment Noted Time PHQ-9 Depression Total Score: 11 05/04/2013 4:05 PM CS T documented as of this encounter Care Teams Media Reporter Relationship Specialty Start Date End Date Elsewhere, Pcp PCP - General Internal Medicine 07/27/18 documented as of this encounter
--- OUTSIDE RECORDS SUMMARY | 2021-12-27 05:19 | XMS_ITS | Clinical Summary ---
:1955 Author Organization [facility] Address [address] [place] [address] Care Team Providers Name Role Phone Elsewhere, Pcp Primary Care Provider Unavailable Source Comments Patient records contain information from all sites at [facility]. For routine questions regarding patient records, call [phone] during business hours, M-F 8:00 AM - 5:00 PM Central Time. Record requests for emergency care only can be directed to [phone] at any time.[facility] Allergies Active Allergy Reactions Severity Noted Date Comments Duloxetine Other (see comments) 01/19/2021 sleep d isturbance and fatigue. Medications Medication Sig Dispensed Refills Start Date End Date Status albuterol (PROAIR Inhale 1-2 puffs 1 Inhaler 11 07/06/2018 Active HFA) 90 mcg/actuation every 4 (four) inhaler hours as needed for shortness of breath. simvastatin (ZOCOR) Take 1 tablet (20 0 07/06/2018 Active 20 mg tablet mg total) by mouth at bedtime. Hyperlipidemia rizatriptan (MAXALT) Take 1 tablet (5 mg 9 tablet 0 9 Active 5 mg tablet total) by mouth as needed for migraine. levothyroxine Take 25 mcg by 0 A ctive (SYNTHROID, mouth every morning LEVOTHROID) 25 mcg before breakfast. tablet nitroglycerin Place 0.4 mg under 0 Active (NITROSTAT) 0.4 mg SL the tongue every 5 tablet (five) minutes as needed for chest pain. SENNOSIDES ORAL Take 1 tablet by 0 Active mouth as needed. famotidine (PEPCID) Take 20 mg by 0 Active 10 mg tablet mouth. methyl Apply 1 application 0 Active salicylate-menthol topically every 2 (BENGAY) ointment (two) hours as needed for muscle/joint pain. clotrimazole-betameth Apply 1 application 0 Active asone (LOTRISONE) topically 2 (two) 1-0.05 % cream times a day. alum-mag Take 5-10 mL by 0 Acti ve hydroxide-simeth mouth every 6 (six) (MAALOX) 200-200-20 hours as needed for mg/5 mL suspension indigestion. Systane, propylene daily. 0 03/24/2019 Active glycol, 0.4-0.3 % ophthalmic solution metoprolol tartrate Take 1 tablet (50 0 04/21/2019 Active (LOPRESSOR) 50 mg mg total) by mouth tablet 2 (two) times a day. For heart rate control. flecainide (TAMBOCOR) Take 1 tablet (100 180 tablet 1 04/21/19 20 Active 100 mg tablet mg total) by mouth 2 (two) times a day. acetaminophen Take 325 mg by 0 A ctive (TYLENOL) 325 mg mouth every 4 tablet (four) hours as needed for pain. amLODIPine (NORVASC) Take 5 mg by mouth 0 Active 5 mg tablet daily. fluticasone Inhale 1 puff 0 Acti ve furoate-vilanteroL daily. (BREO ELLIPTA DISKUS) 200-25 mcg/act inhaler metFORMIN Take 850 mg by 0 Activ e (GLUCOPHAGE) 850 mg mouth 2 (two) times tablet a day with meals. omeprazole (PriLOSEC) Take 40 mg by mouth [address] capsule every morning before breakfast. potassium chloride Take 20 mEq by 0 Active (KLOR-CON M/KDUR) 20 mouth daily. mEq ER tablet topiramate (TOPAMAX) Take 25 mg by mouth 0 Active 25 mg tablet daily. warfarin (COUMADIN) 2 Take 2 mg by mouth 0 Active mg tablet as directed. Take as directed per After Visit Summary. Takes 3 tabs on Friday and Friday, takes 2.5 tabs all other days of the week calcium carbonate Chew 215 mg of 0 Active (Antacid Calcium) 500 calcium daily as mg (215 mg calcium) needed for chewable tablet indigestion or heartburn. guaifenesin (DIABETIC Take 5-10 mL by 0 Active TUSSIN EX ORAL) mouth as needed. diphenhydrAMINE Take 25 mg by mouth 0 Active (BENADRYL) 25 mg as needed. capsule magnesium hydroxide Take 15-30 mL by 0 Active (MILK OF MAGNESIA mouth as needed. ORAL) DULoxetine (CYMBALTA) Take 60 mg by 0 02/16/[address] capsule mouth. methyl Apply topically. 0 08/30/2019 Ac tive salicylate-menthol (ICY HOT) 30-10 % cream rizatriptan (MAXALT) Take 1 tablet by 0 08/31/2019 Active 5 mg tablet mouth one time if needed for Migraine. May repeat every 2 hours for max dose of 30mg/24hours. sennosides (SENOKOT) Take 8.6 mg by 0 11/25/2019 Active 8.6 mg tablet mouth. furosemide (LASIX) 20 Take 20 mg by 0 11/12/2019 Active mg tablet mouth. Nystop 100,000 0 02/02/2020 Acti ve unit/gram powder artificial Administer 1 drop 0 A ctive tears,hypromellose, into both eyes as (ISOPTO TEARS) 0.5 % needed for dry ophthalmic solution eyes. Active Problems Problem Noted Date [facility] 04/11/2020 Atrial Fibrillation Paroxysmal 04/19/2019 Overview: Status post catheter ablation of atrial fibrillation and atrial flutter April 19, 2019. 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 Thrombus Atrial 07/01/2018 Overview: On warfarin as noted above. Flutter Atrial 06/29/2018 Overview: Formatting of this note is dif ferent from the original. Status post typical flutter ablation per formed by Dr. Yeager on 04/20/2019 -admitted at the [facility] from 06/22/2018 - 06/23/2018, where she was treated for atrial fibrillation/flutter with diltiazem drip and self converted to sinus rhythm; her metoprolo l increased to 100 mg b.i.d. and she was dismissed. During her follow-up visit, she was noted to have recurrent atrial flutter. -Electrocardiogram obtained revealed atr ial flutter with ventricular rates 140 with 2-1 AV block. The diltiazem drip was initiated, which transiently controlled her rates. -06/30/2018, she had recurrence of rapid rates despite diltiazem and re- initiation of metoprolol. Transesophageal echo cardiogram demonstrated a mobile left atrial thrombus. Due to the thrombus atrial f lutter ablation was canceled. Xarelto wa s discontinued. Intravenous heparin was initiated. Coumadin was initiated with a INR goal of 2.5-3.5. ?? -Heart rate control was obtained with Di ltiazem XR and Metoprolol. -Cardioversion was contraindicated with the mobile left atrial thrombus and anti-rhythmics that could potentially convert to sinus rhythm also need to be avoided. -Repeat transesophageal echo to ensure r esolution of thrombus within the left atrium followed by cardioversion should be pursued in 6 weeks. At that time atrial flutter ablation can be considered. Last Assessment & Plan: Rates in the 70s. Blood pressure stable. Continues on warfarin per order. Hypertension Essential Primary 06/29/2018 Last Assessment & Plan: Formatting of th is note might be different from the original. Appears euvolemic on examination today. Posttraumatic Stress Disorder Brief 03/20/2017 Diabetes Mellitus Type 2 Without Complication 08/23/19 16 Overview: A1c 6.5% April 2018 in outside lab re dilma. She does not check her blood sugars at d ue to tremor in her upper extremities. On Metformin. Last Assessment & Plan: We will continue with metformin. Blood g lucose in the 100-130s range in the hospital. [facility]. Fibromyalgia 06/28/2015 Overview: On duloxetine. Pain currently controlled . Asthma Mild Persistent 06/28/2014 Fatigue Chronic 07/15/2013 Irregular Sleep-Wake Rhythm Disorder 07/15/2013 Overview: She slept well last night. Will plan to schedule a dose of Tylenol at nighttime to help with sleep per her request. Contracture Shoulder Joint Right 07/14/2013 Primary Osteoarthritis Acromioclavicular Left 07/15/19 14 Pain Musculoskeletal Widespread Chronic 04/30/2013 Unsteadiness Gait Disorder Non Orthopedic 04/30/2013 Constipation 07/15/2012 Apnea Sleep Obstructive 02/06/2012 Overview: Her son will collect her CPAP machine fr om home later this week and bring to the facility. Gastroesophageal Reflux Disease NOS 02/06/2012 Overview: Controlled on pantoprazole. Asthma NOS 01/26/2012 Dyspnea NOS 01/26/2012 Anemia Iron Deficiency 07/27/2009 Hyperlipidemia Mixed 07/27/2009 Other Specified Anxiety Disorders 05/24/2009 Overview: Depression with anxiety, PTSD listed in her diagnoses in outside records. On duloxetine, which she takes for fibro myalgia also. Migraine Headache 05/24/2009 Overview: Controlled on her current regimen with T opamax,PRN rizatriptan, p.r.n. Excedrin. Immunizations Name Administration Dates Next Due Influenza (IM) Preservative Free 01/22/2012 Influenza Split 12/07/2012 PPSV23 01/25/2008 Td, (Adult) Unspecified 05/24/2009 Tdap 01/22/2012 Family History Medical History Relation Name Comments Coronary artery disease Father Hyperlipidemia Father Hypertension Father Relation Name Status Comments Father Social History Tobacco Use Types Packs/Day Years [...] or relatives? How often do you attend congregational or Never 2018 mormonism services? Do you belong to any clubs or No 02/26/2019 organizations such as congregational groups, unions, fraDISKOVRe or athletic groups, or school groups? How [...] minutes do you engage in exercise at is 60 min 03/30/2020 level? Stress Answer [...] level of school you have completed or e 8th grade 03/30/2020 highest degree you have received? Sex Assigned at Date Recorded Not on file Last Filed Vital Signs Vital Sign Reading Time Taken Comments Blood Pressure 148/86 03/30/2020 1:16 PM REFINING MACHINE OPERATOR Pulse 61 03/30/2020 1:16 PM REFINING MACHINE OPERATOR Temperature 36.1 ??C (97 ??F) 03/30/2020 1:16 PM REFINING MACHINE OPERATOR Respiratory Rate 22 04/21/2019 11:15 AM REFINING MACHINE OPERATOR Oxygen Saturation 98% 03/30/2020 1:16 PM REFINING MACHINE OPERATOR Inhaled Oxygen Concentration - - Weight 90.2 kg (198 lb 13.7 oz) 03/30/2020 1:16 PM REFINING MACHINE OPERATOR Height 164.4 cm (5' 4.72) 03/30/2020 1:16 PM REFINING MACHINE OPERATOR Body Mass Index 33.37 03/30/2020 1:16 PM REFINING MACHINE OPERATOR Plan of Treatment Health Maintenance Due Date Last Done Comments CT Colonography 1955 Cologuard 1955 Diabetic Office Visit with Foot 1955 Exam Dilated Eye Exam 1955 FIT 1955 Urine Albumin 1955 Zoster Vaccines (1 of 2) 2007 Mammogram 06/08/2013 06/08/2012 (Performed elsewhere), 05/23/2011 (Performed elsewhere) Pneumococcal vaccine (0-64 years) 04/05/2016 04/05/2015, (2 - PCV) Hepatitis B Vaccines (1 of 3 - 2017 Risk 3-dose series) Colonoscopy 11/22/2017 11/23/2007 (Performed elsewhere) Colorectal Cancer Screening 11/22/2017 Thyroid Stimulating Hormone (TSH) 07/03/2019 07/02/2018, , test for thyroid function 05/03/2013 Office Visit for Blood Pressure 06/28/2020 03/30/2020 Check / Re-check COVID-19 Vaccine (4 - Booster for 03/16/2021 01/19/2021, , Moderna series) 04/06/2020 Depression Screening (Annual 03/24/2021 PHQ-2) Hemoglobin A1C 10/30/2021 05/02/2021, 07/15/2012 Influenza Vaccine (#1) 2021 01/19/2021, 12/23/2019, 12/30/2018, Additional history exists DTaP,Tdap,and Td Vaccines (2 - Td 01/21/2022 01/22/2012, , or Tdap) 05/24/2009 Creatinine Level 05/02/2022 05/02/2021, 05/02/2021, 11/24/2020, Additional history exists Potassium Level 05/02/2022 05/02/2021, 11/24/2020, 06/22/2020, Additional history exists Sodium Level 05/02/2022 05/02/2021, 11/24/2020, 06/22/2020, Additional history exists Lipid (Cholesterol) Screening 06/15/2024 06/16/2019, 2018, 01/22/2011 (Performed elsewhere) Hepatitis C Screening Completed 12/11/2018 Insurance Payer Benefit Plan Subscriber ID Effective Phone Address Typ e / Group Dates MEDICARE MEDICARE A [id number] 2002-Prese [address] [place] [address] [facility] [id number] 2021-Prese [phone] [address] Medicaid HMO nt 25 [place] [address] Advance Directives For more information, please contact: [phone] Latest Code Status on File Code Status Date Activated Date Inactivated Comments Full Code 04/19/2019 9:35 AM 04/21/2019 1:37 PM Full Code: Not Discussed Due to: Patient not available Full Code 07/06/2018 8:47 AM 04/19/2019 7:46 AM Full Code: Discussed Full Code 06/29/2018 6:17 PM 07/06/2018 8:47 AM Full Code: Not Discussed Due to: Patient not available Care Teams Cycle Counter Relationship Specialty Start Date End Date Elsewhere, Pcp PCP - General Internal Medicine 07/27/18
--- OUTSIDE RECORDS SUMMARY | 2021-12-27 05:19 | XMS_ITS | Encounter Summary ---
:1955 Author Organization [facility] Address [address] [place] [address] Care Team Providers Name Role Phone Elsewhere, Pcp Primary Care Provider Unavailable Reason for Referral MRI/CAT/PET Scan (Routine) - Closed Specialty Diagnoses / Procedures Referred By Contact Refer red To Contact Radiology Diagnoses Mass Kidney Ally Bar M.D. [facility] Procedures CT Chest without IV Contrast [address] [place] [address] Referral ID Status Reason Start Date Expiration Date Visits Requ ested Visits Authorized [id number] Closed 05/03/2021 05/03/2022 1 1 TEST TECHNICIAN Reason for Visit MRI/CAT/PET Scan (Routine) - Closed Specialty Diagnoses / Procedures Referred By Contact Refer red To Contact Radiology Diagnoses Mass Kidney Ally Bar M.D. [facility] Procedures CT Chest without IV Contrast [address] [place] [address] Referral ID Status Reason Start Date Expiration Date Visits Requ ested Visits Authorized [id number] Closed 05/03/2021 05/03/2022 1 1 Encounter Details Date Type Department Care Team Description 05/03/2021 Hospital Encounter Department of [place], Ally A, M.D. [facility] Kidney Radiology, [place] [address] [facility], in [place], [place] [address] [address] [facility] [place] [address] Social History Tobacco Use Types Packs/Day Years [...] do you attend synagogue or Never 2018 catholic services? Do you belong to any clubs [...] Not on filedocumented as of this encounter Procedures Procedure Name Priority Date/Time Associated Comments Diagnosis CT CHEST WITHOUT RAD - Routine 05/03/2021 1:35 Mass Kidney Results for this IV CONTRAST (most inpatients PM TUBE TEST TECHNICIAN procedure a re in and all the results outpatients) section. documented in this encounter Results CT Chest without IV Contrast (05/03/2021 1:35 PM TUBE TEST TECHNICIAN) Anatomical Region Laterality Modality Chest, Thoracic RST LOS, Thoracic ARZ N/A Co mputed Tomography, Computed LOS, Thoracic FLA LOS Tomography Specimen (Source) Anatomical Collection Method Collection Time Re ceived Time Location / / Volume Laterality 05/03/2021 1:42 PM TUBE TEST TECHNICIAN Impressions 05/03/2021 1:53 PM TUBE TEST TECHNICIAN 1. Increased clustered nodularity with new dominant 11 x 7 mm nodule in the posterior basal left lower lobe, indeter minate but likely infectious/inflammatory rather than neop lastic. CT follow-up suggested in 3 months. 2. Stable 5 x 4 mm left upper lobe nodul e which has decreased since 08/18/2019. 3. Scattered additional tiny nodules are stable since 03/30/2020. Narrative 05/03/2021 1:53 PM TUBE TEST TECHNICIAN EXAM: CT CHEST WITHOUT IV CONTRAST COMPARISON: [facility] CT chest 021. FINDINGS: The 5 x 4 mm [...] EXAM: CT CHEST WITHOUT IV CONTRAST COMPARISON: [facility] CT chest 021. FINDINGS: The 5 x 4 mm [...] tiny nodules are stable since 03/30/2020. Ally TEE CT PROCEDURES documented in this encounter Visit Diagnoses Diagnosis Mass Kidney documented in this encounter Additional Health Concerns Assessment Noted Time PHQ-9 Depression Total Score: 11 05/04/2013 4:05 PM CS T documented as of this encounter Care Teams Shove Up Relationship Specialty Start Date End Date Elsewhere, Pcp PCP - General Internal Medicine 07/27/18 documented as of this encounter
--- OUTSIDE RECORDS SUMMARY | 2021-12-27 05:19 | XMS_ITS | Encounter Summary ---
:1955 Author Organization [facility] Address [address] [place] [address] Care Team Providers Name Role Phone Elsewhere, Pcp Primary Care Provider Unavailable Encounter Details Date Type Department Care Team Description 05/08/2021 Documentation Preoperative Evaluation Cristy Navarro, [place] in [place], [place], C.N.P ., M.S.N. [address] [place] [phone] (Wo rk) Social History Tobacco Use Types Packs/Day Years [...] or relatives? How often do you attend anabaptist or Never 2018 mu-ism services? Do you belong to any clubs or No 02/26/2019 organizations such as anabaptist groups, unions, fraternal or athletic groups, or [...] on file documented as of this encounter Progress Notes Cristy Navarro, NO, C.N.P., M.S.N. - 05/08/2021 1:35 PM CST This is a [facility] pre-screening note to ascertain if a [facility] appointment is needed. Based on 12 point health systems review available per EMR and Care Everywhere, the patient needs pre-operative evaluation by G[facility] for multiple co-morbidities. The patient was not seen in [facility]. R MAKING MACHINE OPERATOR documented in this encounter Plan of Treatment Not on filedocumented as of this encounter Visit Diagnoses Not on filedocumented in this encounter Additional Health Concerns Assessment Noted Time PHQ-9 Depression Total Score: 11 05/04/2013 4:05 PM CS T documented as of this encounter Care Teams Director Risk Relationship Specialty Start Date End Date Elsewhere, Pcp PCP - General Internal Medicine 07/27/18 documented as of this encounter
--- OUTSIDE RECORDS SUMMARY | 2021-12-27 05:19 | XMS_ITS | Encounter Summary ---
:1955 Author Organization [facility] Address [address] [place] [address] Care Team Providers Name Role Phone Elsewhere, Pcp Primary Care Provider Unavailable Reason for Visit Outpatient (Routine) - Closed Specialty Diagnoses / Procedures Referred By Contact Refer red To Contact Urology Brian Mathias M.D . [address] [address] Referral ID Status Reason Start Date Expiration Date Visits Requ ested Visits Authorized [id number] Closed 05/04/2020 05/04/2021 1 1 Encounter Details Date Type Department Care Team Description 05/03/2021 Office Visit Department of Urology Ally Bar Ma ss Kidney (Primary in [place], [place] Dx) [place] [address] [facility] [address] [place] [phone] Social History Tobacco Use Types Packs/Day Years [...] or relatives? How often do you attend orthodox or Never 2018 hinduism services? Do you belong to any clubs or No 02/26/2019 organizations such as orthodox groups, unions, [email or web address] or athletic groups, or school groups? How [...] documented as of this encounter Progress Notes Ally Bar M.D. - 05/03/2021 11:30 AM CST SUBJECTIVE CHIEF COMPLAINT/REASON FOR VISIT HISTORY OF PRESENT ILLNESS Ms. Metcalf is a pleasant 65 y.o. female with a past medical history of a small renal mass who presents for follow-up. Ms. Metcalf was last seen in March [address] Mathias for a 1 cm mostly exophytic solid renal mass in the left posterior mid kidney on active surveillance. ?? In the interim, patient notes worsening of urinary frequency. She denies other concerns. ?? No hesitancy, straining, incomplete emptying, double voiding, post void dribbling. ?? Prior abdominal and pelvic surgery includes section x2, cholecystectomy, and TAHBSO. The following portions of the patient's history were reviewed and updated as appropriate: allergies,current medications, family history, medical history, social history, surgical history and problem list. REVIEW OF SYSTEMS Constitutional: Negative for fever and night sweats. Skin: Negative for change in mole or skin spot. Eyes: Negative for visual problems. Respiratory: Negative for dyspnea. Cardiovascular: Negative for chest pain, pressure or tightness. Gastrointestinal: Negative for abdominal (belly) pain or cramping, diarrhea, nausea and vomiting. Genitourinary: Positive for frequent urination. Hematologic: Negative for bruises or bleeds easily. Musculoskeletal: Negative for muscle pain/stiffness. Neurological: Negative for weakness in arms or legs. The following systems were negative: Constitutional, Skin, Eyes, ENT, CV, Respiratory, GI, Hematologic, Musculoskeletal, Neuro, Psych OBJECTIVE There were no vitals filed for this visit. PHYSICAL EXAM Constitutional: She appears well-developed and well-nourished. No distress. HENT: Head: Normocephalic and atraumatic. Eyes: Conjunctivae are normal. Pulmonary/Chest: Effort normal. No respiratory distress. Abdominal: Abdomen appears normal and soft. Abdomen does not display tenderness. Musculoskeletal: Normal range of motion. Neurological: She is alert. Skin: Skin is warm and dry. She is not diaphoretic. Psychiatric: She has a normal mood and affect. Her behavior is normal. ASSESSMENT / PLAN #1 Small renal mass with mild increase in size #2 Urinary frequency It was my pleasure to meet Ms. Metcalf today in clinic. She has had a slight increase in her small renal mass, about 6 mm over the past year. We discussed that this is slightly more than we are willing to tolerate on active surveillance and that we would recommend consideration of treatment although t his would be not urgent. This mass is posterior and should be easily accessible by ablation. We alsodiscussed partial nephrectomy, which would be an option as well, however it is somewhat posterior and this may be slightly technically challenging as well as due to her body habitus. Also, she is on Coumadin and No chest imaging has been obtained at this visit so we will check this. Creatinine is stable at 0.7 and urinalysis is benign without hematuria. She does note worsening urinary frequency, and she has greater than 1000 glucose on her urinalysis. We discussed that this will cause urinary frequency. I encouraged her to follow-up with her primary care doctor for better glucose control. I do not see that she is on an SGLT2 inhibitor to explain this. She is on Coumadin and we discussed that this would need to be held prior to her ablation procedure. Plan: - chest imaging - ablation referral - better glucose control to improve urinary frequency Signed by: Sheryl Bar M.D. 05/03/2021 11:48 AM ADMINISTRATIVE SUPPORT ASSISTANT NISTRATIVE SUPPORT ASSISTANT documented in this encounter Plan of Treatment Not on filedocumented as of this encounter Visit Diagnoses Diagnosis Mass Kidney - Primary documented in this encounter Additional Health Concerns Assessment Noted Time PHQ-9 Depression Total Score: 11 05/04/2013 4:05 PM CS T documented as of this encounter Care Teams Rehabilitation Specialist Relationship Specialty Start Date End Date Elsewhere, Pcp PCP - General Internal Medicine 07/27/18 documented as of this encounter
--- OUTSIDE RECORDS SUMMARY | 2021-12-27 05:19 | XMS_ITS | Encounter Summary ---
:[address] [facility] Address [address] [place] [address] Care Team Providers Name Role Phone Elsewhere, Pcp Primary Care Provider Unavailable Reason for Visit Outpatient (Routine) - Closed Specialty Diagnoses / Procedures Referred By Contact Refer red To Contact Radiology Diagnoses Mass Kidney Ally Bar M.D. [address] [phone] Referral ID Status Reason Start Date Expiration Date Visits Requ ested Visits Authorized [id number] Closed 05/03/2021 05/03/2022 1 1 Encounter Details Date Type Department Care Team Description 05/09/2021 Virtual Visit Department of Ally Bar M.D. [address] [place] [phone] Mass Kidney (Primary Dx); Radiology, Cristy Sands APRN, C.N.P., M.S.N. [address] [place] [phone] Atrial Fibrillation Paroxysmal (HCC); [facility], in [place] Gait Disorder Non Orthopedic; [place], [place] Anticoagulant Therapy [address] [place] [phone] Social History Tobacco Use Types Packs/Day Years [...] or relatives? How often do you attend denominational or Never 2018 advent services? Do you belong to any clubs or No 02/26/2019 organizations such as denominational groups, unions, fraternal or athletic groups, or [...] on file documented as of this encounter Consult Notes Cristy Perez APRN, C.N.P., M.S.N. - 05/09/2021 1:00 PM CST IR ABLATION CONSULT Case reviewed with Dr. Waterman The patient was present for a consult via real-time audio/video technology by Cristy Perez APRN, CNP on 05/09/2021. REASON FOR CONSULT Chief Complaint/Reason for Consult: Consult and consideration of percutaneous ablation. HISTORY OF PRESENT ILLNESS Iris Metcalf is a 66 y.o. female referred for consideration of ablation for ablation of a 1.6 cm mostly exophytic left renal mass. PMH significant for asthma, CHAPITO, fibromyalgia, type 2 diabetes, HLD, atrial fibrillation and prior URSULA thrombus on anticoagulation (INR goal range 2.5-3.5), GERD Referring provider: Dr. Bar Approving provider: Dr. Gan/Reviewed again today with Dr. Waterman Left renal mass was initially detected on an outside CT scan in November 2019 when patient was under evaluation for abdominal pain. She had been under active surveillance with the Urology team. Mass had increased about 6 mm over the past year, so the decision was made to consider ablation therapy. We discussed proceeding with either microwave or cryoablation as determined by the proceduralist. She plans to have her local son present on the day of her ablation procedure, but states she cannot afford a hotel overnight and is not able to stay with her son. She also has mobility concerns making herat high risk of fall after general anesthesia. We will try to organize overnight monitoring in the hospital. Iris Metcalf denies any anti-platelet medications. She does take warfarin with PMH positive for atrial fibrillation. We discussed needing to hold coumadin prior to procedure, but she will need toreach out to her PCP/cardiology team for recommendations on whether or not she would need lovenox bridging. Lovenox should then be held 24 hours prior to procedure and for 12-24 hours post- procedure before resuming. Recent pertinent laboratory values include (05/02/21) creatinine 0.92, GFR 66, Hg A2c 6.7%. Full labs would need to be repeated prior to procedure. MEDICATIONS: Current Outpatient Medications: ??? acetaminophen (TYLENOL) 325 mg tablet, Take 325 mg by mouth every 4 (four) hours as needed for pain., Disp: , Rfl: ??? albuterol (PROAIR HFA) 90 mcg/actuation inhaler, Inhale 1-2 puffs every 4 (four) hours as neededfor shortness of breath., Disp: 1 Inhaler, Rfl: 11 ??? alum-mag hydroxide-simeth (MAALOX) 200-200-20 mg/5 mL suspension, Take 5-10 mL by mouth every 6 (six) hours as needed for indigestion. , Disp: , Rfl: ??? amLODIPine (NORVASC) 5 mg tablet, Take 5 mg by mouth daily., Disp: , Rfl: ??? artificial tears,hypromellose, (ISOPTO TEARS) 0.5 % ophthalmic solution, Administer 1 drop into both eyes as needed for dry eyes., Disp: , Rfl: ??? calcium carbonate (Antacid Calcium) 500 mg (215 mg calcium) chewable tablet, Chew 215 mg of calcium daily as needed for indigestion or heartburn., Disp: , Rfl: ??? clotrimazole-betamethasone (LOTRISONE) 1-0.05 % cream, Apply 1 application topically 2 (two) times a day., Disp: , Rfl: ??? diphenhydrAMINE (BENADRYL) 25 mg capsule, Take 25 mg by mouth as needed., Disp: , Rfl: ??? DULoxetine (CYMBALTA) [address] capsule, Take 60 mg by mouth., Disp: , Rfl: ??? famotidine (PEPCID) 10 mg tablet, Take 20 mg by mouth. , Disp: , Rfl: ??? flecainide (TAMBOCOR) 100 mg tablet, Take 1 tablet (100 mg total) by mouth 2 (two) times a day.,Disp: 180 tablet, Rfl: 1 ??? fluticasone furoate-vilanteroL (BREO ELLIPTA DISKUS) 200-25 mcg/act inhaler, Inhale 1 puff daily., Disp: , Rfl: ??? furosemide (LASIX) 20 mg tablet, Take 20 mg by mouth., Disp: , Rfl: ??? guaifenesin (DIABETIC TUSSIN EX ORAL), Take 5-10 mL by mouth as needed., Disp: , Rfl: ??? levothyroxine (SYNTHROID, LEVOTHROID) 25 mcg tablet, Take 25 mcg by mouth every morning before breakfast., Disp: , Rfl: ??? magnesium hydroxide (MILK OF MAGNESIA ORAL), Take 15-30 mL by mouth as needed., Disp: , Rfl: ??? metFORMIN (GLUCOPHAGE) 850 mg tablet, Take 850 mg by mouth 2 (two) times a day with meals., Disp: , Rfl: ??? methyl salicylate-menthol (BENGAY) ointment, Apply 1 application topically every 2 (two) hours as needed for muscle/joint pain., Disp: , Rfl: ??? methyl salicylate-menthol (ICY HOT) 30-10 % cream, Apply topically., Disp: , Rfl: ??? metoprolol tartrate (LOPRESSOR) 50 mg tablet, Take 1 tablet (50 mg total) by mouth 2 (two) timesa day. For heart rate control., Disp: , Rfl: ??? nitroglycerin (NITROSTAT) 0.4 mg SL tablet, Place 0.4 mg under the tongue every 5 (five) minutesas needed for chest pain., Disp: , Rfl: ??? Nystop 100,000 unit/gram powder, , Disp: , Rfl: ??? omeprazole (PriLOSEC) [address] capsule, Take 40 mg by mouth every morning before breakfast., Disp: , Rfl: ??? potassium chloride (KLOR-CON M/KDUR) 20 mEq ER tablet, Take 20 mEq by mouth daily., Disp: , Rfl: ??? rizatriptan (MAXALT) 5 mg tablet, Take 1 tablet (5 mg total) by mouth as needed for migraine., Disp: 9 tablet, Rfl: 0 ??? rizatriptan (MAXALT) 5 mg tablet, Take 1 tablet by mouth one time if needed for Migraine. May repeat every 2 hours for max dose of 30mg/24hours., Disp: , Rfl: ??? sennosides (SENOKOT) 8.6 mg tablet, Take 8.6 mg by mouth., Disp: , Rfl: ??? SENNOSIDES ORAL, Take 1 tablet by mouth as needed. , Disp: , Rfl: ??? simvastatin (ZOCOR) 20 mg tablet, Take 1 tablet (20 mg total) by mouth at bedtime. Hyperlipidemia, Disp: , Rfl: ??? Systane, propylene glycol, 0.4-0.3 % ophthalmic solution, daily., Disp: , Rfl: ??? topiramate (TOPAMAX) 25 mg tablet, Take 25 mg by mouth daily., Disp: , Rfl: ??? warfarin (COUMADIN) 2 mg tablet, Take 2 mg by mouth as directed. Take as directed per After Visit Summary. Takes 3 tabs on Friday and Friday, takes 2.5 tabs all other days of the week, Disp: , Rfl: ALLERGIES Allergies Allergen Reactions ??? Duloxetine Other (see comments) sleep disturbance and fatigue. Past Medical History: Diagnosis Date ??? Arrhythmia ??? Arthritis Rheumatoid (HCC) ??? Asthma NOS ??? Cataract ??? Degeneration Macular ??? Diabetes Mellitus NOS ??? Fibromyalgia ??? Gastroesophageal Reflux Disease NOS ??? Glaucoma ??? Irritable Bowel Syndrome Without Diarrhea ??? Migraine Headache ??? Osteoporosis ??? Sleep Apnea Past Surgical History: Procedure Laterality Date ??? CARDIAC CATHETERIZATION N/A 04/19/2019 Procedure: Ultrasound guidance for vascular access; Surgeon: Marla Yeager M.B.BEdilmaS.; Location: [facility] ??? CATH ABLATION N/A 04/19/2019 Procedure: ABLATION - PVI; Surgeon: Marla Yeager M.B.B.S.; Location: [facility] ??? CATH ABLATION N/A 04/19/2019 Procedure: Ablation - WACA; Surgeon: Marla Yeager M.B.B.S.; Location: [facility] ??? CATH ABLATION N/A 04/19/2019 Procedure: Ablation - Right Atrial Flutter; Surgeon: Marla Yeager M.B.B.S.; Location: [facility] ??? CATH ASD REPAIR N/A 04/19/2019 Procedure: 3D Mapping - Carto; Surgeon: Marla Yeager M.B.B.S.; Location: [facility] ??? CATH INTERVENTION N/A 04/19/2019 Procedure: Intracardiac Echocardiogram; Surgeon: Marla Yeager M.B.B.S.; Location: [facility] ??? SECTION ??? THERAPEUTIC VITAL SIGNS Temp Readings from Last 1 Encounters: 03/30/20 36.1 ??C (Temporal) BP Readings from Last 2 Encounters: 03/30/20 148/86 08/19/19 136/75 Pulse Readings from Last 2 Encounters: 03/30/20 61 08/19/19 66 PHYSICAL EXAMINATION Deferred as this was a phone visit. CONSENT: Discussed risks and benefits of procedure. Risks include infection, bleeding risk, damage to adjacent organs, vessels or nerves as well as risk of exposure to COVID-19 within the facility and risks with anesthesia. Benefits include curative procedure to ablate the tumor. All questions pertaining to the procedure and these risks were answered and the patient agreed to proceed. Written informed consent to procedure and blood product administration needs to be obtained. ASSESSMENT / PLAN #1 1.6 cm left renal mass prior to biopsy and ablation - Mass appears amenable to ablation. Discussed risks and benefits of procedure. Patient is agreeableto procedure, but will need consent signed prior to procedure. - Discussed anticipated post-procedure course with puncture site care including keeping bandage clean and dry for 24 hours, then okay to shower. Keep from avoiding submerging in beltre, bath or hot tub for 1 week and limit lifting to <10 lbs for one week. - Discussed recommendation for f/u in 3 months with referring provider for imaging post procedure. - Patient is not on JERROD/ARB's. Discussed warfarin will need to be held prior to procedure-- she willneed to verify with her prescribing provider whether or not she needs lovenox bridging. Lovenox willneed to be held 24 hours prior to procedure. Discussed that Aspirin should be avoided for the week prior to the procedure. - Will need COVID and updated lab testing prior - Will need INGRID clearance #2 Disposition - Patient not yet scheduled for ablation procedure. The ablation nurses will reach out to her regarding this and assist with planned overnight admission. -Patient admits to financial issues that she does not have the money to pay for multiple hotel nights and is unable to stay with her son. She also has mobility troubles making her at high risk for fallafter anesthesia. For any questions or concerns regarding this patient please page the Ablation Radiology nurse pager at [phone] Friday through Friday 7 a.m. to 5 p.m. or contact the note author. We spent over half of a total 30 minutes with the patient in counseling and discussion and/or coordination of care as described above. SIVE CARDIOLOGIST documented in this encounter Plan of Treatment Not on filedocumented as of this encounter Visit Diagnoses Diagnosis Mass Kidney - Primary Atrial Fibrillation Paroxysmal (HCC) Unsteadiness Gait Disorder Non Orthopedi c Anticoagulant Therapy documented in this encounter Additional Health Concerns Assessment Noted Time PHQ-9 Depression Total Score: 11 05/04/2013 4:05 PM CS T documented as of this encounter Care Teams Salvage Inspector [employer] Relationship Specialty Start Date End Date Elsewhere, Pcp PCP - General Internal Medicine 07/27/18 documented as of this encounter
--- OUTSIDE RECORDS SUMMARY | 2021-12-27 05:19 | XMS_ITS | Clinical Summary ---
:1955 Author Organization [facility] [employer] [facility] [place] [address] Care Team Providers Name Role Phone Kandace Mckeon Primary Care Provider Parish Ruffin MD Unavailable Unavailable Kwaku Wild MD Unavailable Kari Hunt PhD, LP Unavailable Allergies Active Allergy Reactions Severity Noted Date Comments Duloxetine Other - Describe In 01/19/2021 sleep di sturbance and Comment Field fatigue. Medications Medication Sig Dispensed Refills Start End Status Date Date Trolamine Apply 1 0 Active Salicylate Applicator (ASPERCREME) 10 % topically to lotion affected area(s) 4 times daily if needed (pain in legs or where needed). Walker - 4 For home use. 1 Device 0 06/16/19 Activ e wheelsIndications: Length of need: 20 Fibromyalgia 99 with seat loperamide Take 4mg by mouth 0 06/30/19 A ctive (ANTI-DIARRHEAL) 2 with 1st loose 20 mg tablet stool, then 2mg with each subsequent loose stool. Max 16 mg in 24 hrs calcium carbonate Chew 2-4 tablets 0 06/30/19 Active (ANTACID CALCIUM) by mouth between 20 215 mg calcium (500 meals and at mg) chew bedtime as needed. medication order Resident is to 1 Each 0 08/26/19 Active composerIndications self check blood 20 : HTN pressure once (hypertension) weekly or as needed. ICY HOT 30-10 % APPLY TOPICALLY 1 85 g 12 08/30/19 Active topical GRAM TOPICALLY 20 creamIndications: EVERY 2 HOURS Arthralgia, NEEDED unspecified joint nystatin powder Apply 1 Strip 60 g 0 09/02/19 Active (MYCOSTATIN) topically to 20 powderIndications: affected area(s) Tinea cruris 3 times daily. famotidine (PEPCID) Take 1 Tablet (20 180 Tablet 3 07/06/19 Active 20 mg mg) by mouth 2 21 tabletIndications: times daily. Chronic GERD warfarin (COUMADIN) Not currently 0 08/31/19 Active 5 mg taking 21 tabletIndications: Anticoagulation monitoring, INR range 2.5-3.5, New onset atrial fibrillation (HC) aspirin-acetaminoph Take 1 Tablet by 0 09/05/19 Active en-caffeine mouth every 6 21 (EXCEDRIN EX STR) hours if needed 250-250-65 for Headache. Max mgIndications: acetaminophen Migraine without dose: 4000mg in aura and without 24 hrs. status migrainosus, not intractable polyethylene Drink 7 quarts 8000 mL 0 09/15/19 Ac tive glycol-electrolyte the day prior to 21 (GOLYTELY) colonoscopy and 1 236-22.74-6.74 quart 6 hours -5.86 gram prior to suspensionIndicatio colonoscopy ns: Encounter for appointment screening colonoscopy budesonide Inhale 2 mL (0.5 120 mL 5 11/09/19 Ac tive (PULMICORT mg) via a 21 RESPULES) 0.5 mg/2 nebulizer 2 times mL neb daily. suspensionIndicatio ns: Mild persistent asthma without complication NebulizerIndication Nebulizer, 1 Each 0 11/09/19 Active s: Mild persistent disposable neb 21 asthma without kit x 4, complication reuseable neb kit x 1, mask x 1, filters x 1. Frequency of use: daily; Medication: budesonide neb Length of need: 99 months nitroglycerin TAKE 1 TABLET 25 Tablet 1 01/10/20 Ac tive (NITROSTAT) 0.4 mg SUBLINGUALLY 21 sublingual EVERY 5 MINUTES tabletIndications: FOR CHEST PAIN Hypertensive heart NEEDED MAX 3 disease with heart TABLETS WITHIN 15 failure (HC) MINUTES Artificial INSTILL 1 DROP IN 15 mL 3 01/27/20 A ctive Tears,pvalch-povid, BOTH EYES TWICE 21 0.5-0.6 % DAILY NEEDED ophthalmic solutionIndications : Chronically dry eyes, bilateral blood-glucose Dispense meter, 1 Each 0 02/02/20 Active meterIndications: test strips, 21 Diabetes mellitus lancets covered type 2, by pt ins. E11.65 uncontrolled, with NIDDM type II, complications uncontrolled - Test 2 times/day. Reason: High A1C sennosides (SENNA) Take 1 Tablet 180 Tablet 2 02/23/20 Active 8.6 mg (8.6 mg) by mouth 21 tabletIndications: 2 times daily if Irritable bowel needed for syndrome with both Constipation. constipation and diarrhea Gavilax 17 As directed 1 1530 g 0 02/29/20 Activ e gram/dose scoop (17 g) once 21 powderIndications: daily if needed Chronic for Constipation. constipation Mix 17g in 4-8 oz of water or juice and drink daily as needed. Accu-Chek Softclix TEST TWICE DAILY 200 Each 3 04/09/19 Active LancetsIndications: 22 Diabetes mellitus type 2, controlled, without complications (HC) amLODIPine TAKE 1 TABLET BY 30 Tablet 12 04/12/19 Ac tive (NORVASC) 10 mg MOUTH DAILY 22 tabletIndications: HTN (hypertension) glipiZIDE TAKE 1 TABLET BY 30 Tablet 12 05/03/19 Act sugar (GLUCOTROL) 5 mg MOUTH DAILY 22 tabletIndications: BEFORE A MEAL Diabetes mellitus type 2, uncontrolled, with complications simvastatin (ZOCOR) TAKE 1 TABLET BY 30 Tablet 12 05/03/19 Active 20 mg MOUTH EVERY NIGHT 22 tabletIndications: AT BEDTIME Mixed hyperlipidemia acetaminophen Take 2 tablets 90 Tablet 1 07/07/19 A ctive (TYLENOL) 325 mg every 4-6 hours 22 tabletIndications: as needed for 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 22 (Accu-Chek Guide test strips) stripIndications: Diabetes mellitus type 2, controlled, without complications (HC) metoprolol Take 1 Tablet (50 90 Tablet 3 10/12/19 A ctive succinate (TOPROL mg) by mouth once 22 XL) 50 mg daily. sustained-release tabletIndications: Essential hypertension with goal blood pressure less than 130/80, New onset atrial fibrillation (HC) hydrOXYzine HCL Take 1 Tablet (25 30 Tablet 12 10/18/19 Active (ATARAX) 25 mg mg) by mouth at 22 tabletIndications: bedtime if needed Depression with for Anxiety. anxiety Antifungal, APPLY TO AFFECTED 28 g 0 10/22/19 Active Clotrimazole, 1 % AREA(S) TWICE 22 creamIndications: DAILY NEEDED Tinea pedis of left *PATIENT MAY SELF foot ADMINISTER* Ventolin HFA 90 INHALE 2 PUFFS BY 18 g 12 10/22/19 Active mcg/actuation MOUTH EVERY 4 22 inhalerIndications: HOURS NEEDED Mild persistent asthma without complication rizatriptan TAKE 1 TABLET BY 12 Tablet 5 12/04/19 A ctive (MAXALT) 5 mg MOUTH DAILY 22 tabletIndications: NEEDED FOR Migraine without MIGRAINE *MAY aura and without REPEAT ONCE AFTER status migrainosus, 2 HOURS* not intractable warfarin (COUMADIN) 0 11/22/19 Active 4 mg tablet 22 warfarin (COUMADIN) Take by mouth 6 20 Tablet 0 12/21/19 Active 2 mg mg (2 mg x 3) 22 tabletIndications: every Sun, Wed, New onset atrial Fri; 4 mg (2 mg x fibrillation (HC), 2) all other days Anticoagulation in the evening OR monitoring, INR as directed range 2.5-3.5 rizatriptan TAKE 1 TABLET BY 30 Tablet 5 10/31/19 D iscontinued (MAXALT) 5 mg MOUTH DAILY 21 022 tabletIndications: NEEDED FOR Migraine without MIGRAINE *MAY aura and without REPEAT ONCE AFTER status migrainosus, 2 HOURS* not intractable warfarin (COUMADIN) Take by mouth 6 60 Tablet 0 11/22/19/ 1/2 Discontinued 2 mg mg (2 mg x 3) 22 022 (Reord er tabletIndications: every Sun, Wed, (E-cancel not New onset atrial Fri; 4 mg (2 mg x sent)) fibrillation (HC), 2) all other days Anticoagulation recheck INR monitoring, INR 12/12/21 range 2.5-3.5 warfarin (COUMADIN) Take by mouth 6 20 Tablet 0 12/13/1911/23 Discontinued 2 mg mg (2 mg x 3) 22 022 (Other - add tabletIndications: every Fri, Fri, note to specify New onset atrial Fri; 4 mg (2 mg x (E-cancel not fibrillation (HC), 2) all other days sent)) Anticoagulation in the evening OR monitoring, INR as directed range 2.5-3.5 Active Problems Patient Care Coordination Note Formatting of this note might be differe nt from the original. My health, sons and grandchildren is wha t matters most to JUNI. JUNI would like her care team to know [facility] in situation where she is at and is interested in moving. What are JUNI's challenges, stressors, o r barriers? Health and ex Problem Noted Date Type 2 diabetes mellitus with hyperglycemia, without l sandra-term current use 10/18/2021 of insulin Acute exacerbation of chronic obstructive pulmonary di sease 05/08/2021 Clear cell carcinoma of left kidney 11/25/2020 Hypertensive heart disease with heart failure 11/26/19 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 Anticoagulation monitoring, INR range 2.5-3.5 06/11/19 20 New onset atrial fibrillation 06/10/2019 Acute on chronic diastolic (congestive) heart failure 07/01/2018 Post traumatic stress disorder (PTSD) 03/20/2017 Controlled type 2 diabetes mellitus without complicati on, without 08/23/2015 long-term current use of insulin Fibromyalgia 06/28/2015 Mild persistent asthma 06/28/2014 CHAPITO AHI-11 positional, 10/24/2009, 04/01/10 04/08/2010 Chest pain, unspecified 12/19/2009 Overview: EGD 07/2015 normal Iron deficiency anemia, unspecified 07/27/2009 Mixed hyperlipidemia 07/27/2009 Depression with anxiety 05/24/2009 Migraine 05/24/2009 HTN (hypertension) 05/24/2009 Resolved Problems Problem Noted Date Resolved Date Mild persistent asthma 01/02/2012 07/30/2012 Reactive airway disease 08/09/2011 12/06/2011 CHAPITO AHI-11 positional, 10/24/2009, 04/01/10 04/08/2010 04/08/2010 Sleep apnea 12/19/2009 04/08/2010 CHAPITO AHI-11 positional, 10/24/2009 10/29/2009 04/08/19 11 Unspecified hypothyroidism 07/27/2009 04/15/2014 Encounters Date Type Specialty Care Team Description 12/26/2021 Orders Only Lab, [facility] 12/26/2021 Office Visit Kari Hunt; RACHEL Chaparro, PhD, LP Trmt Plan 12/26/2021 Travel 12/20/2021 Anticoagulation 1, [facility] 12/19/2021 Orders Only Lab, [facility] 12/19/2021 Travel 12/12/2021 Office Visit Kandace Mckeon Diabetes; Venus, DO Immunization/In jection 12/12/2021 Anticoagulation 1, [facility]far[facility] 12/11/2021 Orders Only Lab, [facility] 12/11/2021 Travel 12/11/2021 Telephone DetertKandace Anticoagulati on (AC Venus, DO Orders) 12/06/2021 Orders Only Scanner <No scans attac hed> 12/06/2021 Orders Only Scanner <No scans attac hed> 11/30/2021 Refill Detert, Kandace Refill Reques t Venus, DO (Rizatriptan) 11/21/2021 Office Visit Kari Hunt PhD, LP 11/21/2021 Anticoagulation 1, [facility]far[facility] 11/20/2021 Orders Only Lab, [facility] 11/20/2021 Travel 11/14/2021 Office Visit Kari Hunt PhD, LP 11/14/2021 Anticoagulation 1, [facility] ([facility]farin) Clinic 11/13/2021 Orders Only Lab, [facility] 11/13/2021 Ancillary Procedure 11/13/2021 Telephone DetertKandace Results (INR) Venus, DO 11/13/2021 Travel 11/07/2021 Anticoagulation 1, [facility] (HALF-WAY) (warfarin) Clinic 11/06/2021 Orders Only Lab, [facility] 11/06/2021 Travel 10/31/2021 Anticoagulation 1, [facility] ([facility]farin) [facility] 10/30/2021 Orders Only Lab, [facility] 10/29/2021 Office Visit Kari Hunt Individual Therapy Krysta, PhD, LP 10/29/2021 Travel 10/18/2021 Refill Detert, Kandace Refill Reques t Venus, DO (Antifungal (Clotrimazole), Ventolin Hfa) 10/17/2021 Office Visit Kandace Mckeon Memory Loss; Venus, DO Palpitations; M edication Management (met oprolol is taking 50 mg twice a day) 10/17/2021 Travel 10/10/2021 Anticoagulation 1, [facility] ([facility]farin) [facility] (Lab/[facility]) 10/09/2021 Orders Only Lab, [facility] 10/09/2021 Travel 10/08/2021 Refill Detert, Kandace Refill Reques t (METOPROL Venus, DO SUC TAB 100MG E R) 10/03/2021 Telephone Kari Hunt Follow Up ( Returning Krysta, PhD, LP call) 09/28/2021 Refill Detert, Kandace Refill Reques t Venus DO (Metoprolol Suc cinate) from Last 3 Months Immunizations Name Administration Dates Next Due AMB Influenza, IIV4 PF (=>6 mos 12/23/2019 Flulaval,Fluzone Fluarix)(Flu Clinic Only) COVID-19 vaccine (Moderna 05/04/2020, 04/06/2020 100mcg/0.5mL) PF, MDV COVID-19 vaccine (Umoove 01/19/2021 30mcg/0.3mL) PF, MDV Influenza RIV4 (Age 18+ Years) 12/30/2018 PRESERV FREE Influenza, IIV3 (Age 6-35 mos) 01/22/2012 Influenza, IIV3 (Age >=3 years) 12/02/2012, 11/28/2010, 12/22 Influenza, IIV4 12/12/2021, 01/19/2021, 12/24/2017, 12/23/2016, 12/13/2015, 04/05/2015, 04/15/2014, 12/07/2012, 01/22/2012 Pneumococcal Poly,23-Valent 04/05/2015, 01/25/2008 (Pneumovax) Td, Preservative Free (age >= 7 05/24/2009 Years) Tdap 01/22/2012 Tuberculin (PPD) 12/26/2010 Family History Medical History Relation Name Comments Heart Disease Father Hypertension Father Other Mother Parkinsons Cancer-breast Paternal Aunt Cancer-ovarian No Family History Relation Name Status Comments Father Mother Paternal Aunt Social History Tobacco Use Types Packs/Day Years Used Date Passive Smoke Exposure - Never Smoker 25 Smokeless Tobacco: Never Used Tobacco Cessation: Counseling Given: Yes Comments: roommate smokes and exposed fo r along time Alcohol Use Standard Drinks/Week Comments Yes 0 (1 standard drink = 0.6 oz pure alcoho l) occassional Alcohol Habits Answer Date Recorded How often do you have a drink containing alcohol? Not asked How many drinks containing alcohol do you have on a Not aske d typical day when you are drinking? How often do you have six or more drinks on one occasion? No t asked Comment: occassional 05/11/2018 Sex Assigned at Date Recorded Not on file COVID-19 Exposure Response Date Recorded In the last 10 days, have you been in contact with No / Unsu re 12/26/2021 10:23 AM CDT someone who was confirmed or suspected to have Coronavirus/COVID-19? Obstetrics History Last Filed Vital Signs Vital Sign Reading Time Taken Comments Blood Pressure 122/85 12/12/2021 2:34 PM CDT Pulse 88 12/12/2021 2:34 PM CDT Temperature 37.1 ??C (98.7 ??F) 06/22/2021 10:09 AM CDT Respiratory Rate 18 07/29/2018 2:35 PM CDT Oxygen Saturation 97% 12/12/2021 2:34 PM CDT Inhaled Oxygen Concentration - - Weight 90.3 kg (199 lb) 12/12/2021 2:34 PM CDT Height 164 cm (5' 4.57) 08/08/2021 2:56 PM CDT Body Mass Index 33.56 08/08/2021 2:56 PM CDT Plan of Treatment Upcoming Encounters Date Type Specialty Care Team Description 01/16/2022 Office Visit Kari Hunt, PhD, LP [address] [place], [place] [address] (Wo rk) 01/23/2022 Office Visit Kari Hunt, PhD, LP [address] [place], [place] [address] (Wo rk) 02/06/2022 Office Visit Kari Hunt, PhD, LP [address], [place] [address] (Wo rk) 02/13/2022 Office Visit Kari Hunt, PhD, LP [address] [place], [place] [address] (Wo rk) 04/04/2022 Office Visit Raulito Bruce, PhD, LP [address] [facility] [address] [place] [address] (Wo rk) 06/12/2022 Office Visit Kandace Mckeon ea, [address] [place], [place] [address] (Wo rk) Health Maintenance Due Date Last Done Comments Zoster (shingles) series for age 1203/11/2007 50+ (1 of 2) Pneumococcal series for age 19-64 04/05/2016 04/05/2015, (2 - PCV) COVID-19 vaccine series (4 - 03/16/2021 01/19/2021, 021, Booster for Moderna series) 04/06/2020 Depression screening for age 12+ 12/06/2021 12/06/2020, , 12/05/2020, Additional history exists Tetanus booster 01/21/2022 01/22/2012, 05/24/2009 BMI (ht and wt on same day) for 08/08/2022 08/08/2021, 08/22, age 18+ 07/19/2019, Additional history exists Mammogram for age 45-75 11/13/2022 11/13/2021, 10/19/2020, 12/27/2016, Additional history exists Lipids for age 45-75 06/15/2024 06/16/2019, 10/23/2016, 11/06/2015, Additional history exists Colonoscopy through age 75 10/09/2030 10/09/2020, 6, 11/22/2015 Tdap Completed 01/22/2012 Hepatitis C screening for age Completed 10/07/2014 18-79 Influenza for age 50-64 Completed 12/12/2021, 01/19/2021, 12/23/2019, Additional history exists Goals Goal Patient Goal Associated Recent Patient-Stated? Author Type Problems Progress BLOOD Blood No Detert, PRESSURE-MAINTA Pressure Kandace Leblanc, INS BP LESS DO THAN 130/80 Follow up with General Yes Terence, providers by Reny Miranda, 06/21/17 [employer] Note: Formatting of this note might be d ifferent from the original. - appointment with dental provider by - appointment for DM eye exam and new ey eglasses by 06/21/17 Healthcare Directive General Yes Kam hay, Reny Miranda, [employer]PER[employer] Note: Formatting of this note might be d ifferent from the original. - work on completing healthcare directiv e by end of ACT episode Procedures Procedure Name Priority Date/Time Associated Diagnosis Comme nts PROTIME-INR STAT 12/26/2021 1:38 New onset atrial Results for this PM CDT fibrillation (HC ) procedure are in Anticoagulation the results monitoring, INR range sectio n. 2.5-3.5 URINE ALBUMIN TO Routine 12/19/2021 1:43 Type 2 diabetes Resul ts for this CREATININE RATIO, PM CDT mellitus with procedure are in RANDOM hyperglycemia, without the r esults long-term current use sectio n. of insulin (HC) PROTIME-INR STAT 12/19/2021 1:37 New onset atrial Results for this PM CDT fibrillation (HC ) procedure are in Anticoagulation the results monitoring, INR range sectio n. 2.5-3.5 BASIC METABOLIC Routine 12/12/2021 2:19 Type 2 diabetes Result s for this PANEL PM CDT mellitus with procedure are in hyperglycemia, without the r esults long-term current use sectio n. of insulin (HC) HEMOGLOBIN A1C Routine 12/12/2021 2:19 Type 2 diabetes Results for this PM CDT mellitus with procedure are in hyperglycemia, without the r esults long-term current use sectio n. of insulin (HC) PROTIME-INR STAT 12/11/2021 2:37 New onset atrial Results for this PM CDT fibrillation (HC ) procedure are in Anticoagulation the results monitoring, INR range sectio n. 2.5-3.5 SCAN-EYE EXAM 12/06/2021 12:00 Results fo r this AM CDT procedure are i n the results section. SCAN-EYE EXAM 12/06/2021 12:00 Results fo r this AM CDT procedure are i n the results section. PROTIME-INR STAT 11/20/2021 1:40 Anticoagulation Results f or this PM CDT monitoring, INR range proced ure are in 2.5-3.5 the results New onset atrial section. fibrillation (HC) PROTIME-INR STAT 11/13/2021 1:55 Anticoagulation Results f or this PM CDT monitoring, INR range proced ure are in 2.5-3.5 the results New onset atrial section. fibrillation (HC) XR MAMMO CRYSTAL BILAT Routine 11/13/2021 1:34 Visit for screenin g Results for this SCREEN PM CDT mammogram procedure are i n the results section. PROTIME-INR STAT 11/06/2021 2:00 Anticoagulation Results f or this PM CDT monitoring, INR range proced ure are in 2.5-3.5 the results New onset atrial section. fibrillation (HC) PROTIME-INR STAT 10/30/2021 2:54 Anticoagulation Results f or this PM CDT monitoring, INR range proced ure are in 2.5-3.5 the results New onset atrial section. fibrillation (HC) PROTIME-INR STAT 10/09/2021 3:06 Anticoagulation Results f or this PM CDT monitoring, INR range proced ure are in 2.5-3.5 the results New onset atrial section. fibrillation (HC) from Last 3 Months Results (ABNORMAL) PROTIME-INR (12/26/2021 1:38 PM CDT)Only the most recent of8 results within the time period is included. P athologist Signature INR 3.1 (H) <1.3 12/26/2021 [facility] 8:26 PM CDT LABORATORY-[facility] PROTIME 30.2 (H) 12.0 - 13.8 12/26/2021 [facility] sec 8:26 PM CDT LABORATORY-[facility] Specimen Anatomical Collection Method / Collection Time Recei dominguez Time (Source) Location / Volume Laterality Blood BLOOD SPECIMEN / Venipuncture / 12/26/2021 1:38 2021 1:38 Unknown Unknown PM CDT PM CDT Narrative [facility] - 12/26/2021 8:26 PM CDT ?Therapeutic Range 2.0-3.0 for most anticoagulated patients 2.5-3.5 or 4.0 for high risk patients The INR is only used for patients on sta ble oral anticoagulant therapy. It makes no significant contribution to the diagnosis or treatment of patients whose Protime is prolonged f or other reasons. INR results are increased when heparin l evels exceed 1.0 U/mL, which corresponds to an aPTT >125 seconds if the patient is on UFH. Kandace Mckeon DO HEMATOLOGY Performing Organization Address City/State/ZIP Code Phon e Number [facility] [address] [place] [id number] LABORATORY-[facility] LABORATORY (ABNORMAL) URINE ALBUMIN TO CREATININE RATIO, RANDOM (12/19/2021 1:43 PM CDT) Patholo gist Method Time Signature ALB RAND URINE 69.6 mg/L 12/20/2021 [facility] 6:57 AM CDT LAB[facility]ATORY[facility] CREATININE,URIN 0.65 g/L 12/20/2021 [facility] 6:57 AM CDT [facility]ATORY[facility] ALBUMIN TO 107.1 (H) <30.0 12/20/2021 [facility] CREATININE mg/g 6:57 AM CDT LABORATORY-[facility] RATIO,RAND UR creat TRAL LABORATORY Specimen Anatomical Collection Method Collection Time Receive d Time (Source) Location / / Volume Laterality Urine URINE SPECIMEN / Non-Blood / 12/19/2021 1:43 PM 12/19 1:43 Unknown Unknown CDT PM CDT Narrative [facility] LABORATORY-[facility] - 12/20/2021 6:57 AM CDT If Albumin to Creatinine Ratio is elevated, consider the following: ? Elevations seen with incipient nephr opathy associated ?? with diabetes mellitus or hypertensi on. Stress, exercise, ?? hematuria, and urinary tract infecti on may also produce ?? elevated results. If clinically gaetano cated, confirm with ?? 24 Hour Albumin to Creatinine Ratio. Kandace Mckeon DO URINE Performing Organization Address City/State/ZIP Code Phon e Number [facility] [address] [place] [address] LABORATORY-[facility] [address] LABORATORY (ABNORMAL) HEMOGLOBIN A1C MONITORING (POCT) (12/12/2021 2:19 PM CDT) Analysis Performed At Patho logist Time Signature HEMOGLOBIN A1C 6.5 (H) <=6.4 % 12/12/2021 [facility] MONITORING 2:32 PM CDT [facility] Specimen Anatomical Collection Method / Collection Time Recei dominguez Time (Source) Location / Volume Laterality Blood BLOOD SPECIMEN / Venipuncture / 12/12/2021 2:19 2021 2:23 Unknown Unknown PM CDT PM CDT Narrative [facility] - 2021 2:32 PM CDT ? (<=6.9%) ? Indicates good control ? (7.0% to 7.9%) ? Indicates fa ir control ? (>=8.0%) ? Indicates poor control ?? NOTE: ??These thresholds are guideli junior and ?individual targets may va ry. Falsely low levels may be seen with: Recent Transfusion, Recent Significant B lood Loss, Hemolytic Diseases, or Falsely elevated levels may be seen with : Untreated Anemias, Splenectomy ? Kandace Mckeon DO CHEMISTRY Performing Organization Address City/State/ZIP Code Phon e Number [facility] [address] [place] [address] (ABNORMAL) BASIC METABOLIC PANEL (12/12/2021 2:19 PM CDT) Analysis Performed At Patho logist Time Signature SODIUM 139 135 - 145 12/13/2021 [facility] mmol/L 2:26 PM [facility] POTASSIUM 3.9 3.5 - 5.0 12/13/2021 [facility] mmol/L 2:26 PM [facility] CHLORIDE 103 98 - 110 12/13/2021 [facility] mmol/L 2:26 PM [facility] CO2,TOTAL 27 21 - 31 12/13/2021 [facility] mmol/L 2:26 PM [facility] ANION GAP 9 5 - 18 12/13/2021 [facility] 2:26 PM [facility] GLUCOSE 205 (H) 65 - 100 12/13/2021 [facility] mg/dL 2:26 PM [facility] CALCIUM 9.1 8.5 - 10.5 12/13/2021 [facility] mg/dL 2:26 PM [facility] BUN 10 8 - 25 12/13/2021 [facility] mg/dL 2:26 PM [facility] CREATININE 0.99 0.57 - 12/13/2021 [facility] 1.11 mg/dL 2:26 PM [facility] BUN/CREAT RATIO 10 10 - 20 12/13/2021 [facility] 2:26 PM [facility] eGFR 64 (L) >90 12/13/2021 [facility] mL/min/1.7 2:26 PM [facility] 3m2 LABORATORY Comment: As of 2021, eGFR is calcu lated by the CKD-EPI creatinine equation without race adjustment. eGFR can be inf luenced by muscle mass, exercise, and diet. The reported eGFR is an estimation only and is only applicable if the renal function is stable. Specimen Anatomical Collection Method / Collection Time Recei dominguez Time (Source) Location / Volume Laterality Blood BLOOD SPECIMEN / Venipuncture / 12/12/2021 2:19 2021 2:23 Unknown Unknown PM CDT PM CDT Kandace Mckeon DO CHEMISTRY Performing Organization Address City/State/ZIP Code Phon e Number [facility] ZIP [address] [place] [address] [facility] [address] SCAN-EYE EXAM (12/06/2021 12:00 AM CDT) Narrative This result has an attachment that is no t available. Scanner OTHER SCAN-EYE EXAM (12/06/2021 12:00 AM CDT) Narrative This result has an attachment that is no t available. Scanner OTHER XR MAMMO CRYSTAL BILAT SCREEN (11/13/2021 1:34 PM CDT) Anatomical Region Laterality Modality BREASTS, Breast Left, Breast Right Bilateral Mammo graphy Specimen (Source) Anatomical Location Collection Method / Collectio n Time Received Time / Laterality Volume Impressions 11/14/2021 2:15 PM CDT ??There is no radiographic evidence for malignancy. ??Recommend annual mammograms. MAMMOGRAM ASSESSMENT: ??ACR 1 Negative PATIENTS: You will also receive a letter with your examination results in an easy to read format. ??If you have qu estions about your results, please contact your referring provider. Narrative 11/14/2021 2:15 PM CDT For Patients: As a result of the Century Cures Act, medical imaging exams and procedure reports are released immediately into your electronic medical record. You may view this report before your referring provider. If you have questions, please contact [facility] provider. XR MAMMO CRYSTAL BILAT SCREEN [[id number]] CLINICAL HISTORY: ??This is an asymptoma tic 66 y.o. patient. INDICATION FOR EXAM: Mammogram Screening . TECHNIQUE: CC & MLO views were obtained. ??This study was evaluated with the assistance of Computer-Aided Detecti on. Breast Tomosynthesis was used in interpretation. COMPARISON FILM: Yes 10/19/20 [facility] 12/27/16 [facility] FINDINGS: ??The breasts have scattered a reas of fibroglandular density. There are no dominant masses, suspicious micro calcifications or areas of architectural distortion. Kandace Mckeon DO MAMMO from Last 3 Months Insurance Payer Benefit Plan / Subscriber ID Effective Dates Phone Addre ss Type Group MEDICARE PART B MEDICARE PART [id number] 2004-Presen ATTN: CLAIMS - HB USE ONLY B HB ONLY t [address] [place] [phone] MEDICARE PPS HC MEDICARE [id number] 2004-Presen PO JASE X 2019 PPS t [address] [place] [address] MEDICARE - PB MEDICARE PB [id number] 2004-Presen ATTN : CLAIMS USE ONLY ONLY t [address] [place] [address] UCARE [place] UCARE CONNECT [id number] 2021-Presen [address] [place] [address] Juni Metcalf Personal/Family Self 1955 [place] (Home) [address] [place] [address] Care Teams Product Safety And Standards Engineer Relationship Specialty Start Date End Date Kandace Mckeon DO PCP - General 12/25/09 [address] [place] [address] Parish Ruffin MD Pulmonology Pulmonary Medicine 12/04/11 Kwaku Wild MD Physical Medicine and 10/07/[address] [place] [id number] Kari Hunt, Psychologist Psychology 12/10/16 PhD, LP [address] [place] [address]
--- OUTSIDE RECORDS SUMMARY | 2021-12-27 05:19 | XMS_ITS | Encounter Summary ---
:1955 Author Organization [facility] Address [address] [place] [address] Care Team Providers Name Role Phone Elsewhere, Pcp Primary Care Provider Unavailable Reason for Visit Outpatient (Routine) - Closed Specialty Diagnoses / Procedures Referred By Contact Refer red To Contact Diagnoses Other Polyuria Kristen Watts M.D. [facility] Procedures URO Uroflow 200 [place] [address] Referral ID Status Reason Start Date Expiration Date Visits Requ ested Visits Authorized [id number] Closed 02/06/2021 02/06/2022 1 1 Encounter Details Date Type Department Care Team Description 05/03/2021 Procedure visit Department of Kristen Watts M.D. Other Polyuria; Urology in Batsheva Harris, L.P.N. Feeling Of Incomplete Bladder Emptying; [place], [place] Eusebio Tran M.D. [address] [place] [phone] Frequency Urinary [address] [place] [phone] Social History Tobacco Use Types Packs/Day Years [...] or relatives? How often do you attend alevism or Never 2018 presybeterian services? Do you belong to any clubs or No 02/26/2019 organizations such as alevism groups, unions, fraternal or athletic groups, or [...] documented as of this encounter Progress Notes Batsheva Harris L.P.N. - 05/03/2021 10:45 AM CST CHIEF COMPLAINT Patient here for a complex uroflow via calibrated electronic equipment and a residual urine check byultrasound. IMPRESSION/REPORT/PLAN Dr. Kristen Watts ordered the patient to have a complex uroflow with residual urine check via ultrasound. Patient had a mild urge to void. Uroflow was completed at this time. Patient voided 66 mL's and had a ultrasound residual of 51 mL's. Patient rates pain at 0 on the 0 to 10 pain scale post procedure. RLY CAREGIVER documented in this encounter Procedure Notes Eusebio Tran M.D. - 05/03/2021 10:45 AM CSTAssociated Order(s): URO UROFLOW REASON FOR VISIT: Uroflow: The patient here for a complex uroflow via calibrated electronic equipment and a residual urine check by ultrasound. FINDINGS: Peak flow 14 ml/sec Average flow 9 ml/sec Voiding time 42 sec Total voided volume 86 mls Residual urine 51 ml by ultrasound Valsalva flow pattern IMPRESSION: Low voided volume with low postvoid residual. RLY CAREGIVER documented in this encounter Plan of Treatment Not on filedocumented as of this encounter Procedures Procedure Name Priority Date/Time Associated Diagnosis Comme nts URO UROFLOW Routine 05/03/2021 10:45 AM Other Polyuria Result s for this ELDERLY CAREGIVER procedure are i n the results section . documented in this encounter Results URO Uroflow (05/03/2021 10:45 AM ELDERLY CAREGIVER) Narrative Eusebio Tran M.D. - 05/03/2021 10: 45 AM ELDERLY CAREGIVER Eusebio Tran M.D. ? 05/07/2021 ??9:36 AM REASON FOR VISIT: Uroflow: The patient here for a complex uroflow via calibrated electronic equipment and a residual urin e check by ultrasound. FINDINGS: Peak flow 14 ml/sec Average flow 9 ml/sec Voiding time ??42 sec Total voided volume 86 mls Residual urine 51 ml by ultrasound Valsalva flow pattern IMPRESSION: Low voided volume with low postvoid resi dual. ?? Kristen Watts M.D. UROLOGY ORDERABLES documented in this encounter Visit Diagnoses Diagnosis Other Polyuria Feeling Of Incomplete Bladder Emptying Frequency Urinary documented in this encounter Additional Health Concerns Assessment Noted Time PHQ-9 Depression Total Score: 11 05/04/2013 4:05 PM CS T documented as of this encounter Care Teams Welding Systems And Equipment Repairer Relationship Specialty Start Date End Date Elsewhere, Pcp PCP - General Internal Medicine 07/27/18 documented as of this encounter
--- OUTSIDE RECORDS SUMMARY | 2021-12-27 05:19 | XMS_ITS | Encounter Summary ---
:1955 Author Organization [facility] Address [address] [place] [address] Care Team Providers Name Role Phone Elsewhere, Pcp Primary Care Provider Unavailable Reason for Visit Reason Comments Pre-Ablation Encounter Details Date Type Department Care Team Description 05/03/2021 Clinical Communication Department of So Ca e-Ablation Radiology, Homar Leon R.N. [place], in [phone] [place], [place] (Work) [address] [place] [phone] Social History Tobacco Use Types Packs/Day [...] or relatives? How often do you attend shinto or Never 2018 latter-day services? Do you belong to any clubs or No 02/26/2019 organizations such as shinto groups, unions, fraternal or athletic groups, or [...] on file documented as of this encounter Miscellaneous Notes Telephone Encounter - Alen Gan M.D. - 05/03/2021 1:18 PM CST Images from the original note were not included. Case Review by Interventional Oncology for potential ablation: Referring provider: Target Location: left kidney Number of lesions: one Updated imaging needed: no Schedule consult: yes Schedule preprocedure US: yes Neuromonitoring: No Primary modality: CT Ureteral stent: no Combined embolization case?: no Comments: Approved for ablation: Yes Reviewed by: Alen Gan M.D. A PRESS OPERATOR documented in this encounter Plan of Treatment Not on filedocumented as of this encounter Visit Diagnoses Not on filedocumented in this encounter Additional Health Concerns Assessment Noted Time PHQ-9 Depression Total Score: 11 05/04/2013 4:05 PM CS T documented as of this encounter Care Teams Child Care Supervisor Relationship Specialty Start Date End Date Elsewhere, Pcp PCP - General Internal Medicine 07/27/18 documented as of this encounter
--- OUTSIDE RECORDS SUMMARY | 2021-12-27 05:19 | XMS_ITS | Encounter Summary ---
:1955 Author Organization [facility] Address [address] [place] [address] Care Team Providers Name Role Phone Elsewhere, Pcp Primary Care Provider Unavailable Encounter Details Date Type Department Care Team Description 05/09/2021 Orders Only Department of So Ca Lab Exam (Primary Dx); Radiology, Gayla Leon, REdilmaNEdilma Contact With And (Suspected) Exposure To [address], in [phone] [place], [place] (Work) [address] [place] [phone] Social History Tobacco Use Types Packs/Day [...] or relatives? How often do you attend lutheran or Never 2018 holiness services? Do you belong to any clubs or No 02/26/2019 organizations such as lutheran groups, unions, fraternal or athletic groups, or [...] as of this encounter Visit Diagnoses Diagnosis Preprocedural Lab Exam - Primary Contact With And (Suspected) Exposure To COVID-19 documented in this encounter Additional Health Concerns Assessment Noted Time PHQ-9 Depression Total Score: 11 05/04/2013 4:05 PM CS T documented as of this encounter Care Teams Stepdown Nurse Relationship Specialty Start Date End Date Elsewhere, Pcp PCP - General Internal Medicine 07/27/18 documented as of this encounter
--- OUTSIDE RECORDS SUMMARY | 2021-12-27 05:19 | XMS_ITS | Encounter Summary ---
:1955 Author Organization [facility] Address [address] [place] [address] Care Team Providers Name Role Phone Elsewhere, Pcp Primary Care Provider Unavailable Encounter Details Date Type Department Care Team Description 05/09/2021 Clinical Communication Department of So Ca Radiology, Homar Leon R.N. [facility] [phone] [place] ([facility]) [address] [place] [address] Social History Tobacco Use Types Packs/Day [...] or relatives? How often do you attend islam or Never 2018 bahai services? Do you belong to any clubs or No 02/26/2019 organizations such as islam groups, unions, fraternal or athletic groups, or [...] documented as of this encounter Care Teams Museum Exhibit Technician Relationship Specialty Start Date End Date Elsewhere, Pcp PCP - General Internal Medicine 07/27/18 documented as of this encounter
--- OUTSIDE RECORDS SUMMARY | 2021-12-27 05:20 | XMS_ITS | Encounter Summary ---
:1955 Author Organization [facility] Address [address] [place] [address] Care Team Providers Name Role Phone Elsewhere, Pcp Primary Care Provider Unavailable Encounter Details Date Type Department Care Team Description 04/07/2020 Hospital Encounter Department of Josh Rodriguez For Laboratory Medicine Geeta Urias M.D. Screen ing For Other in [place], Viral Disease [facility] (COVID-19) [address] [place] [phone] Social History Tobacco Use Types Packs/Day Years [...] or relatives? How often do you attend cheondoism or Never 2018 evangelical services? Do you belong to any clubs or No 02/26/2019 organizations such as cheondoism groups, unions, fraternal or athletic groups, or [...] Name Priority Date/Time Associated Diagnosis Comme nts SARS CORONAVIRUS-2 Routine 04/07/2020 9:12 AM Encounter For Re sults for this RNA, V EDUCATION DEPARTMENT CHAIR Screening For Other procedur e are in Viral Diseases the results (COVID-19) section. documented in this encounter Results SARS Coronavirus-2 RNA, V Asymptomatic (04/07/2020 9:12 AM EDUCATION DEPARTMENT CHAIR) [facility] Method Time Signature SARS-CoV-2 Swab, 04/07/2020 MKTO Specimen Nasopharynx 7:58 PM EDUCATION DEPARTMENT CHAIR Source SARS CoV-2 Undetected Undetected 04/07/2020 ARTIS RNA, TMA 7:58 PM EDUCATION DEPARTMENT CHAIR Comment: SARS-CoV-2 RNA absent. This result does not rule out COVID-19 in the patient, as the sensitivity of the test depends o n the timing of the specimen collection and the quality of the specim en. Result should be correlated with patient's history and clinical presentat ion. ----ADDITIONAL INFORMATION---- This molecular amplification test was pe rformed using the Aptima SARS-CoV-2 assay ([employer] on the [employer]mes tem under emergency use authorization (EUA) by the U.S. Food and Drug Administ ration. Fact sheets for this EUA assay can be fo und at the following links: For Healthcare Providers: https://www.[employer] a.gov/media/319998/download For Patients: https://www.fda.gov/media/ 633835/download Specimen Anatomical Collection Method Collection Time Receive d Time (Source) Location / / Volume Laterality Varies 04/07/2020 9:12 AM 3:22 (Nasopharynx) EDUCATION DEPARTMENT CHAIR PM EDUCATION DEPARTMENT CHAIR Geeta Ware M.D. LAB MICROBIOLOGY - GENERAL O RDERABLES Performing Organization Address City/State/ZIP Code Phon e Number [facility] [address] [place] [address] [place] [address] [address] documented in this encounter Visit Diagnoses Diagnosis Encounter For Screening For Other Viral Diseases (COVID-19) documented in this encounter Additional Health Concerns Infection Onset Date Last Indicated Resolved Time COVID19 Pending 04/07/2020 04/07/2020 04/07/2020 7:59 PM EDUCATION DEPARTMENT CHAIR Assessment Noted Time PHQ-9 Depression Total Score: 11 05/04/2013 4:05 PM CS T documented as of this encounter Care Teams Sports Book Board Attendant Relationship Specialty Start Date End Date Elsewhere, Pcp PCP - General Internal Medicine 07/27/18 documented as of this encounter
--- OUTSIDE RECORDS SUMMARY | 2021-12-27 05:20 | XMS_ITS | Encounter Summary ---
:1955 Author Organization [facility] Address [address] [place] [address] Care Team Providers Name Role Phone Elsewhere, Pcp Primary Care Provider Unavailable Encounter Details Date Type Department Care Team Description 03/07/2021 Clinical Communication Department of Rosemarie Quezada Cardiovascular Medicine A, RMary Ann in [facility] quotation checker [address] [facility] [address] [place] [phone] Social History Tobacco Use Types Packs/Day Years [...] or relatives? How often do you attend amish or Never 2018 sabianism services? Do you belong to any clubs or No 02/26/2019 organizations such as amish groups, unions, fraternal or athletic groups, or [...] this encounter Miscellaneous Notes Telephone Encounter - Rosemarie Quezada R.N. - 03/07/2021 12:52 PM FURNITURE CLEANER Call placed to Mrs. Metcalf's assisted Living facility to relay that Dr. Villegas did review the most recent monitor and did not see any rhythm issues of concern at this time so no recommendations for change in plan of care. They are requesting a copy of the monitor report be faxed to [phone] [facility]. I will see if Dr. Villegas's medical transcription can fax that information to them ITURE CLEANER documented in this encounter Plan of Treatment Not on filedocumented as of this encounter Visit Diagnoses Not on filedocumented in this encounter Additional Health Concerns Assessment Noted Time PHQ-9 Depression Total Score: 11 05/04/2013 4:05 PM CS T documented as of this encounter Care Teams Barrel Finisher Relationship Specialty Start Date End Date Elsewhere, Pcp PCP - General Internal Medicine 07/27/18 documented as of this encounter
--- OUTSIDE RECORDS SUMMARY | 2021-12-27 05:20 | XMS_ITS | Encounter Summary ---
:[address] [facility] Address [address] [place] [address] Care Team Providers Name Role Phone Elsewhere, Pcp Primary Care Provider Unavailable Reason for Referral MRI/CAT/PET Scan (Routine) - Canceled Specialty Diagnoses / Procedures Referred By Contact Refer red To Contact Radiology Diagnoses Mass Kidney Geeta Rodriguez M.D. [place] Procedures CT Abdomen Pelvis with IV Contrast [address] [place] [phone] Referral ID Status Reason Start Date Expiration Date Visits V isits Requested Authorized [id number] Canceled 03/30/2020 03/30/2021 1 1 OPEDICS NURSE Reason for Visit MRI/CAT/PET Scan (Routine) - Canceled Specialty Diagnoses / Procedures Referred By Contact Refer red To Contact Radiology Diagnoses Mass Kidney Geeta Rodriguez M.D. [facility] Procedures CT Abdomen Pelvis with IV Contrast [address] [place] [address] Referral ID Status Reason Start Date Expiration Date Visits V isits Requested Authorized [id number] Canceled 03/30/2020 03/30/2021 1 1 Encounter Details Date Type Department Care Team Description 03/30/2020 Hospital Encounter Department of Radiology, Geeta Rodriguez Mass Kidney leandro Sagastume M.D. [place], [place] [address] [place] [address] Social History Tobacco Use Types Packs/Day Years [...] or relatives? How often do you attend rastafarian or Never 2018 caodaism services? Do you belong to any clubs or No 02/26/2019 organizations such as rastafarian groups, unions, fraternal or athletic groups, or [...] Name Type Priority Associated Order Schedule Diagnoses CT Abdomen Pelvis Imaging RAD - Routine (most Mass Kidney Onc e for 1 with IV Contrast inpatients and all Occur rences starting outpatients) 03/30/2020 unti l 03/30/2020 documented as of this encounter Visit Diagnoses Diagnosis Mass Kidney documented in this encounter Additional Health Concerns Assessment Noted Time PHQ-9 Depression Total Score: 11 05/04/2013 4:05 PM CS T documented as of this encounter Care Teams Customer Resource Specialist Relationship Specialty Start Date End Date Elsewhere, Pcp PCP - General Internal Medicine 07/27/18 documented as of this encounter
--- OUTSIDE RECORDS SUMMARY | 2021-12-27 05:20 | XMS_ITS | Encounter Summary ---
:1955 Author Organization [facility] Address [address] [place] [address] Care Team Providers Name Role Phone Elsewhere, Pcp Primary Care Provider Unavailable Reason for Referral Outpatient (Routine) - Authorized Specialty Diagnoses / Procedures Referred By Contact Refer red To Contact Diagnoses Flutter Atrial (HCC) Atrial Fibrillation Paroxysmal [facility]CC[facility] Heart Rhythm Monitor (Holter) M.DEdilma [address] [place] [address] Referral ID Status Reason Start Date Expiration Date Visits V isits Requested Authorized [id number] Authorized 01/30/2021 01/30/[address]PRAISER Reason for Visit Outpatient (Routine) - Authorized Specialty Diagnoses / Procedures Referred By Contact Refer red To Contact Diagnoses Flutter Atrial (HCC) Atrial Fibrillation Paroxysmal (HCC) [facility] Procedures ECG Heart Rhythm Monitor (Holter) M.DEdilma [address] [place] [address] Referral ID Status Reason Start Date Expiration Date Visits V isits Requested Authorized [id number] Authorized 01/30/2021 01/30/2022 1 1 Encounter Details Date Type Department Care Team Description 02/27/2021 Hospital Encounter Department of Siontis, Flutter Atrial (HCC); Cardiovascular Diseases Pacheco Monroy ial Fibrillation Paroxysmal (HCC) in [facility] nasim Kellogg [address] [facility] [place] [phone] Social History Tobacco Use Types Packs/Day Years [...] or relatives? How often do you attend yarsani or Never 2018 voodoo services? Do you belong to any clubs or No 02/26/2019 organizations such as yarsani groups, unions, fraternal or athletic groups, or [...] Name Priority Date/Time Associated Diagnosis Comme nts HOLTER MONITOR - IN Routine 03/01/2021 9:47 PM Flutter A trial ([facility]) Results for this CLINIC PATHOLOGY LABORATORY AIDE RIGHT OF WAY APPRAISER Atrial Fibrillation proced ure are in Paroxysmal ([facility]) the results section. documented in this encounter Results HOLTER MONITOR - IN CLINIC PATHOLOGY LABORATORY AIDE (03/01/2021 9:[address] APPRAISER) [facility] gist Method Time Signature Min Heart Rate 65 bpm INFOBIONIC MOME Max Heart Rate 111 bpm INFOBIONIC MOME Mean Heart 79 bpm INFOBIONIC Rate MOME VE Total Beats 0 count INFOBIONIC MOME VE Percent less than percent INFOBIONIC Beats [address] Total 298 count INFOBIONIC Beats MOME SVE Percent less than percent INFOBIONIC Beats 1 MOME AF Count 0 count INFOBIONIC MOME AF Duration 0 duration INFOBIONIC MOME AF [place] 0 percent INFOBIONIC MOME Symptom Count 1 count INFOBIONIC MOME Specimen (Source) Anatomical Collection Method Collection Time Re ceived Time Location / / Volume Laterality 02/27/2021 1:[address] APPRAISER Narrative INFOBIONIC MOME - 03/04/2021 10:59 AM CS T 1. The basic rhythm was sinus. The total analyzed time was 1d 23h 43m. The heart rate varied from 65 to 111 bpm. The average HR was 79 bpm. 2. No premature ventricular complexes we re noted. 3. Premature supraventricular complexes were noted singly, in bigeminy, paired, and in fourteen 3-13 beat atrial runs, maximum rate 157 bpm. There were 298 PACs recorded with a PAC burden of less than 1%. 4. A total of 1 symptomatic event was no carmine. The heart rate was 70 bpm. No ectopy was seen around this time. Credit Interviewer: Jair Little/Solange Momin Procedure Note Peyman Cole M.D. - 03/04/2021Formatt ing of this note might be different from the original. 1. The basic rhythm was sinus. The total analyzed time was 1d 23h 43m. The heart rate varied from 65 to 111 bpm. The average HR was 79 bpm. 2. No premature ventricular complexes we re noted. 3. Premature supraventricular complexes were noted singly, in bigeminy, paired, and in fourteen 3-13 beat atrial runs, maximum rate 157 bpm. There were 298 PACs recorded with a PAC burden of less than 1%. 4. A total of 1 symptomatic event was no carmine. The heart rate was 70 bpm. No ectopy was seen around this time. Credit Interviewer: Jair Little/Solange Momin Porfirio Villegas M.D. CV CARDIAC SERVICES PROCEDUR ES Performing Organization Address City/State/ZIP Code Phon e Number [facility] NA documented in this encounter Visit Diagnoses Diagnosis Flutter Atrial (HCC) Atrial Fibrillation Paroxysmal (HCC) documented in this encounter Additional Health Concerns Assessment Noted Time PHQ-9 Depression Total Score: 11 05/04/2013 4:05 PM PAGE T documented as of this encounter Care Teams Ammonia Distiller Relationship Specialty Start Date End Date Elsewhere, Pcp PCP - General Internal Medicine 07/27/18 documented as of this encounter
--- OUTSIDE RECORDS SUMMARY | 2021-12-27 05:20 | XMS_ITS | Encounter Summary ---
:1955 Author Organization [facility] Address [address] [place] [address] Care Team Providers Name Role Phone Elsewhere, Pcp Primary Care Provider Unavailable Reason for Referral MRI/CAT/PET Scan (Routine) - Closed Specialty Diagnoses / Procedures Referred By Contact Refer red To Contact Radiology Diagnoses Kidney And Ureter Disorder Brian Mathias M.D. [facility] Procedures CT Abdomen with IV Contrast CT Abdomen without and with IV Contrast [address] [place] [address] Referral ID Status Reason Start Date Expiration Date Visits Requ ested Visits Authorized [id number] Closed 04/11/2020 04/11/[address] SCIENCE PROFESSOR Reason for Visit MRI/CAT/PET Scan (Routine) - Closed Specialty Diagnoses / Procedures Referred By Contact Refer red To Contact Radiology Diagnoses Kidney And Ureter Disorder Brian Mathias M.D. [facility] Procedures CT Abdomen with IV Contrast CT Abdomen without and with IV Contrast [address] [place] [address] Referral ID Status Reason Start Date Expiration Date Visits Requ ested Visits Authorized [id number] Closed 04/11/2020 04/11/2021 1 1 Encounter Details Date Type Department Care Team Description 04/24/2020 Hospital Encounter Department of Brian Mathias Kidney And Ureter Radiology, Prakash Miranda M.D. [facility], in [place], [place] [address] [place] [address] Social History Tobacco Use Types Packs/Day Years [...] or relatives? How often do you attend hinduism or Never 2018 shinto services? Do you belong to any clubs or No 02/26/2019 organizations such as hinduism groups, unions, fraternal or athletic groups, or [...] Name Priority Date/Time Associated Comments Diagnosis CT ABDOMEN WITH RAD - Routine 04/24/2020 1:25 Kidney And Ureter Res ults for this IV CONTRAST (most inpatients PM FOREST SCIENCE PROFESSOR Disorder procedure a re in and all the results outpatients) section. documented in this encounter Results CT Abdomen with IV Contrast (04/24/2020 1:25 PM FOREST SCIENCE PROFESSOR) Anatomical Region Laterality Modality Abdomen, Abdominal RST LOS, Abdominal N/A Co mputed Tomography, Computed ARZ LOS, Abdominal FLA LOS Tomography Specimen (Source) Anatomical Collection Method Collection Time Re ceived Time Location / / Volume Laterality 04/24/2020 2:21 PM FOREST SCIENCE PROFESSOR Impressions 04/24/2020 2:47 PM FOREST SCIENCE PROFESSOR 1. No change since 11/30/2019 indeterminate 1.4 cm left renal mass likely representing primary renal neoplasm. 2. Small hiatal hernia. 3. Probable osteoporosis. Narrative 04/24/2020 2:47 PM FOREST SCIENCE PROFESSOR EXAM: ??CT ABDOMEN WITH IV CONTRAST COMPARISON: ??CT abdomen pelvis without IV contrast material 02/07/[address] abdomen pelvis with IV contrast material 11/30/2019. FINDINGS: ??A partially exophytic 1.4 cm oval, mildly irregular mass projecting posteriorly from the interpolar region o f left kidney demonstrates internal density of 40 Hounsfield units (HU) by C T without IV contrast material 02/07/2020, internal density of 154 HU o n corticomedullary images today and internal density of 101 HU on nephrograp hic images today. The mass has not changed in size. Lower pole scarring of left kidney is al so unchanged. Tiny benign right renal cyst. Cholecystectomy. Small hiatal randi ia includes sliding and paraesophageal components. Incidental left inferior justo a cava inferior to level of renal veins. Osteopenia and biconvex lumbar disk spac es suggest osteoporosis. Abdomen is otherwise unremarkable. Procedure Note Dimitri Martinez M.D. - 04/24/2020Formatt ing of this note might be different from the original. EXAM: CT ABDOMEN WITH IV CONTRAST COMPARISON: CT abdomen pelvis without IV contrast material 02/07/[address] abdomen pelvis with IV contrast material 11/30/2019. FINDINGS: A partially exophytic 1.4 cm o jack, mildly irregular mass projecting posteriorly from the interpolar region o f left kidney demonstrates internal density of 40 Hounsfield units (HU) by C T without IV contrast material 02/07/2020, internal density of 154 HU o n corticomedullary images today and internal density of 101 HU on nephrograp hic images today. The mass has not changed in size. Lower pole scarring of left kidney is al so unchanged. Tiny benign right renal cyst. Cholecystectomy. Small hiatal randi ia includes sliding and paraesophageal components. Incidental left inferior justo a cava inferior to level of renal veins. Osteopenia and biconvex lumbar disk spac es suggest osteoporosis. Abdomen is otherwise unremarkable. IMPRESSION: 1. No change since 11/30/2019 indeterminat e 1.4 cm left renal mass likely representing primary renal neoplasm. 2. Small hiatal hernia. 3. Probable osteoporosis. Brian TEE CT PROCEDURES documented in this encounter Visit Diagnoses Diagnosis Kidney And Ureter Disorder documented in this encounter Administered Medications Inactive Administered Medications - up to 3 most recent administrations Medication Order MAR Action Action Date Dose Rate Site iohexoL 300 mg iodine/mL solution Given 04/24/2020 1:16 PM FOREST SCIENCE PROFESSOR 1 40 mL 1-200 mL (OMNIPAQUE) 1-200 mL, intravenous, Once in imaging, contrast, Starting on Fri04/24/20 at 1238, For 1 dose, Imaging Protocol Orders, Dose per Radiant Medication Guidelines sodium chloride (PF) 0.9 % injection 1-1 00 mL Given 04/24/2020 1:16 PM FOREST SCIENCE PROFESSOR 50 mL 1-100 mL, intravenous, Once, On Fri04/24/20 at 1245, For 1 dose, Imaging Protocol Orders documented in this encounter Additional Health Concerns Assessment Noted Time PHQ-9 Depression Total Score: 11 05/04/2013 4:05 PM CS T documented as of this encounter Care Teams Administrative Aide Relationship Specialty Start Date End Date Elsewhere, Pcp PCP - General Internal Medicine 07/27/18 documented as of this encounter
--- OUTSIDE RECORDS SUMMARY | 2021-12-27 05:20 | XMS_ITS | Encounter Summary ---
:1955 Author Organization [facility] Address [address] [place] [address] Care Team Providers Name Role Phone Elsewhere, Pcp Primary Care Provider Unavailable Reason for Visit Reason Comments Dizziness Atrial Fibrillation Encounter Details Date Type Department Care Team Description 01/25/2021 Clinical Department of Plant Maintenance Supervisor Dizziness; Atr ial Communication Cardiovascular , Bess [place] Fibrillation Medicine in [place], [place] [address] [place] [address] Social History Tobacco Use Types Packs/Day Years [...] or relatives? How often do you attend presybeterian or Never 2018 buddhism services? Do you belong to any clubs or No 02/26/2019 organizations such as presybeterian groups, unions, fraternal or athletic groups, or [...] this encounter Miscellaneous Notes Telephone Encounter - Gayla Quinones - 01/26/2021 11:11 AM CDT Called [email or web address] [phone]. She will connect with patient and have patient's PCIM order a 48-hour Holter Monitor, as patient hasn't had any rhythm monitoring done. Telephone Encounter - Carlota Casiano - 01/25/2021 2:35 PM CDT Symptoms ?? Goal or summary: Appt w/Testing ?? Recent change/new symptom/duration: [facility] ([phone]) check up, says things are off says she feels she has some a fib occasional dizzy spells Last saw Dr Villegas 07/2019. documented in this encounter Plan of Treatment Not on filedocumented as of this encounter Visit Diagnoses Not on filedocumented in this encounter Additional Health Concerns Assessment Noted Time PHQ-9 Depression Total Score: 05/04/2013 4:05 PM CS T documented as of this encounter Care Teams Mortgage Loan Closer Relationship Specialty Start Date End Date Elsewhere, Pcp PCP - General Internal Medicine 07/27/18 documented as of this encounter
--- OUTSIDE RECORDS SUMMARY | 2021-12-27 05:20 | XMS_ITS | Encounter Summary ---
:[address] [facility] Address [address] [place] [address] Care Team Providers Name Role Phone Elsewhere, Pcp Primary Care Provider Unavailable Reason for Referral Outpatient (Routine) - Authorized Specialty Diagnoses / Procedures Referred By Contact Refer red To Contact Diagnoses Flutter Atrial (HCC) Atrial Fibrillation Paroxysmal (HCC) [facility] Heart Rhythm Monitor (Holter) Bess [address] [place] [address] Referral ID Status Reason Start Date Expiration Date Visits V isits Requested Authorized [id number] Authorized 01/30/2021 01/30/2022 1 1 MATOR PAPERBOARD BOXES Encounter Details Date Type Department Care Team Description 01/30/2021 Orders Only Department of Comptometrist, Flutter Atria l (HCC) (Primary Dx); Cardiovascular Medicine Bess [place] Atri al Fibrillation Paroxysmal (HCC) in [facility] potato pancake frier [address] [place] [address] Social History Tobacco Use Types Packs/Day [...] or relatives? How often do you attend adventist or Never 2018 restoration services? Do you belong to any clubs or No 02/26/2019 organizations such as adventist groups, unions, fraSnaptiva or athletic groups, or school groups? How [...] Not on filedocumented as of this encounter Results HOLTER MONITOR - IN CLINIC MOLDING PLASTERER (03/01/2021 9:47 PM ESTIMATOR PAPERBOARD BOXES) [facility] gist Method Time Signature Min Heart Rate [...] AF Duration 0 duration INFOBIONIC MOME AF [place] 0 percent INFOBIONIC MOME Symptom Count 1 count INFOBIONIC MOME Specimen (Source) Anatomical Collection Method Collection Time Re ceived Time Location / / Volume Laterality 02/27/2021 1:24 PM ESTIMATOR PAPERBOARD BOXES Narrative INFOBIONIC MOME - 03/04/2021 10:59 AM [...] No ectopy was seen around this time. Dental Specialist: Jair Little/Solange Momin Procedure Note Peyman Cole [...] No ectopy was seen around this time. Dental Specialist: Jair Little/Solange Momin Porfirio Villegas M.D. CV CARDIAC SERVICES PROCEDUR ES Performing Organization Address City/State/ZIP Code Phon e Number INFOBIONIC MOME INFOBIONIC MOME NA documented in this encounter Visit Diagnoses Diagnosis Flutter Atrial (HCC) - Primary Atrial Fibrillation Paroxysmal (HCC) Flutter Atrial (HCC) Atrial Fibrillation Paroxysmal (HCC) documented in this encounter Additional Health Concerns Assessment Noted Time PHQ-9 Depression Total Score: 11 05/04/2013 4:05 PM CS T documented as of this encounter Care Teams Croze Cutter Helper Relationship Specialty Start Date End Date Elsewhere, Pcp PCP - General Internal Medicine 07/27/18 documented as of this encounter
--- OUTSIDE RECORDS SUMMARY | 2021-12-27 05:20 | XMS_ITS | Encounter Summary ---
:[address] [facility] Address [address] [place] [address] Care Team Providers Name Role Phone Elsewhere, Pcp Primary Care Provider Unavailable Encounter Details Date Type Department Care Team Description 05/02/2021 Hospital Encounter Department of Kristen Watts, Kidney And Ureter Disorder; Laboratory Medicine Bess henderson; and Pathology, Diabetes Berna itus Type 2 (HCC) [facility], in [place], [place] [address] [place] [address] Social History Tobacco Use Types Packs/Day Years [...] or relatives? How often do you attend jewish or Never 2018 religion services? Do you belong to any clubs or No 02/26/2019 organizations such as jewish groups, unions, fraternal or athletic groups, or [...] Procedure Name Priority Date/Time Associated Comments Diagnosis HEMOGLOBIN A1C, B Routine 05/02/2021 10:07 AM Diabetes Mellitu s Results for this BOILERMAKING SUPERVISOR Type 2 (HCC) procedure are i n the results section. BASIC METABOLIC Routine 05/02/2021 10:07 AM Mass Kidney Resul ts for this PANEL, S/P BOILERMAKING SUPERVISOR procedure are i n the results section. documented in this encounter Results (ABNORMAL) Hemoglobin A1c (05/02/2021 10:07 AM BOILERMAKING SUPERVISOR) P athologist Signature Hemoglobin A1c, 6.7 (H) 4.0 - 5.6 05/02/2021 DTL B % 10:48 AM BOILERMAKING SUPERVISOR Comment: Hemoglobin A1c values greater than or eq ual to 6.5 percent are diagnostic for diabetes mellitus. ?? Diagnosis should be confirmed by repeat testing. ??In diabet ic patients, HbA1c goals should be discussed with healthcar e provider. Specimen Anatomical Collection Method Collection Time Receive d Time (Source) Location / / Volume Laterality Blood (Blood, 05/02/2021 10:07 05/02/2021 Venous) AM BOILERMAKING SUPERVISOR 10:27 AM BOILERMAKING SUPERVISOR Kristen Watts M.D. LAB BLOOD ADD-ON Performing Organization Address City/State/ZIP Code Phon e Number [facility] - [address] [place] [address] [facility] [place] [address] Laboratories-[facility] 200 [facility] Basic Metabolic Panel (05/02/2021 10:07 AM BOILERMAKING SUPERVISOR) P athologist Signature Potassium, S 4.1 3.6 - 5.2 05/02/2021 DTL mmol/L 11:21 AM BOILERMAKING SUPERVISOR Sodium, S 141 135 - 145 05/02/2021 DTL mmol/L 11:21 AM BOILERMAKING SUPERVISOR Chloride, S 103 98 - 107 05/02/2021 DTL mmol/L 11:21 AM BOILERMAKING SUPERVISOR Bicarbonate, S 26 22 - 29 05/02/2021 DTL mmol/L 11:21 AM BOILERMAKING SUPERVISOR Anion Gap 12 7 - 15 05/02/2021 DTL 11:21 AM BOILERMAKING SUPERVISOR BUN (Blood Urea 12 6 - 21 05/02/2021 DTL Nitrogen), S mg/dL 11:21 AM BOILERMAKING SUPERVISOR Creatinine 0.92 0.59 - 05/02/2021 DTL 1.04 mg/dL 11:21 AM BOILERMAKING SUPERVISOR eGFR-Non 66 >=60 05/02/2021 DTL Black/ mL/min/BSA 11:21 AM BOILERMAKING SUPERVISOR [place] Leonean Comment: ----ADDITIONAL INFORMATION---- Estimated GFR calculated using the 2009 CKD_EPI creatinine equation. eGFR-Black/ 76 >=60 mL/min/BSA 2021 11:21 AM BOILERMAKING SUPERVISOR DTL Comment: ----ADDITIONAL INFORMATION---- Estimated GFR calculated using the 2009 CKD_EPI creatinine equation. Calcium, Total, S 9.3 8.8 - 10.2 mg/dL 05/02/2021 11:2 1 AM BOILERMAKING SUPERVISOR DTL Glucose, S 128 70 - 140 mg/dL 05/02/2021 11:21 AM BOILERMAKING SUPERVISOR DTL Specimen Anatomical Collection Method Collection Time Receive d Time (Source) Location / / Volume Laterality Blood (Blood, 05/02/2021 10:07 05/02/2021 Venous) AM BOILERMAKING SUPERVISOR 10:54 AM BOILERMAKING SUPERVISOR Kristen Watts M.D. LAB BLOOD ADD-ON Performing Organization Address City/State/ZIP Code Phon e Number [facility] - [address] [place], [place] [address] [facility] [place] [address] [facility] [address] documented in this encounter Visit Diagnoses Diagnosis Kidney And Ureter Disorder Mass Kidney Diabetes Mellitus Type 2 (HCC) documented in this encounter Additional Health Concerns Assessment Noted Time PHQ-9 Depression Total Score: 11 05/04/2013 4:05 PM CS T documented as of this encounter Care Teams Lower School Spanish Teacher Relationship Specialty Start Date End Date Elsewhere, Pcp PCP - General Internal Medicine 07/27/18 documented as of this encounter
--- OUTSIDE RECORDS SUMMARY | 2021-12-27 05:20 | XMS_ITS | Encounter Summary ---
:1955 Author Organization [facility] Address [address] [place] [address] Care Team Providers Name Role Phone Elsewhere, Pcp Primary Care Provider Unavailable Encounter Details Date Type Department Care Team Description 05/02/2021 Hospital Encounter Department of Laboratory Yamile Watts M.D. [facility] Kidney Medicine and Pathology, [facility] in [place], [place] [address] [place] [address] Social History Tobacco Use Types Packs/Day [...] or relatives? How often do you attend baptism or Never 2018 adventist services? Do you belong to any clubs or No 02/26/2019 organizations such as baptism groups, unions, fraternal or athletic groups, or [...] Procedure Name Priority Date/Time Associated Comments Diagnosis MA OSMOLALITY ASSAY Routine 05/02/2021 10:17 Resu lts for this URINE AM ONLINE MEDIA BUYER procedure are i n the results section. DIPSTICK, U Routine 05/02/2021 10:17 Results for this AM ONLINE MEDIA BUYER procedure are i n the results section. PH, RANDOM, U Routine 05/02/2021 10:17 Results fo r this AM ONLINE MEDIA BUYER procedure are i n the results section. MICROSCOPIC MANUAL Routine 05/02/2021 10:17 Resul ts for this AM ONLINE MEDIA BUYER procedure are i n the results section. URINALYSIS WITH Routine 05/02/2021 10:17 Mass Kidney Results for this MICROSCOPIC AM ONLINE MEDIA BUYER procedure are i n the results section. documented in this encounter Results Dipstick, Urine (05/02/2021 10:17 AM ONLINE MEDIA BUYER) [facility] gist Method Time Signature Hemoglobin, Negative Negative 05/02/2021 DTL QL, U 11:20 AM ONLINE MEDIA BUYER Leukocyte Negative Negative 05/02/2021 DTL Esterase, U 11:20 AM ONLINE MEDIA BUYER Nitrite, U Negative Negative 05/02/2021 DTL 11:20 AM ONLINE MEDIA BUYER Ketone, U Negative Negative 05/02/2021 DTL mg/dL 11:20 AM ONLINE MEDIA BUYER Glucose, U Negative Negative 05/02/2021 DTL mg/dL 11:20 AM ONLINE MEDIA BUYER Specimen Anatomical Collection Method Collection Time Receive d Time (Source) Location / / Volume Laterality Urine 05/02/2021 10:17 05/02/2021 AM ONLINE MEDIA BUYER 11:05 AM ONLINE MEDIA BUYER Kristen Watts M.D. LAB URINE ORDERABLES Performing Organization Address City/[facility] Phon e Number [facility] - [address] Osmolality, Urine (05/02/2021 10:17 AM ONLINE MEDIA BUYER) athologist Signature Osmolality, U 519 150 - 1150 05/02/2021 DTL mOsm/kg 12:05 PM ONLINE MEDIA BUYER Specimen Anatomical Collection Method Collection Time Receive d Time (Source) Location / / Volume Laterality Urine 05/02/2021 10:17 05/02/2021 AM ONLINE MEDIA BUYER 11:05 AM ONLINE MEDIA BUYER Kristen Watts M.D. LAB URINE ORDERABLES Performing Organization Address City/[facility] Phon e Number [facility] - [address] [place] [address] [facility] pH, [place], Urine (05/02/2021 10:17 AM ONLINE MEDIA BUYER) P athologist Signature pH, Random, U 5.1 4.5 - 8.0 05/02/2021 DTL 12:05 PM ONLINE MEDIA BUYER Specimen Anatomical Collection Method Collection Time Receive d Time (Source) Location / / Volume Laterality Urine 05/02/2021 10:17 05/02/2021 AM ONLINE MEDIA BUYER 11:05 AM ONLINE MEDIA BUYER Kristen Watts M.D. LAB URINE ORDERABLES Performing Organization Address [facility] Phon e Number [facility] - [address] [place] [address] (ABNORMAL) Microscopic Manual (05/02/2021 10:17 AM ONLINE MEDIA BUYER) P athologist Signature Microscopy Abnormal 05/02/2021 DTL 1:14 PM ONLINE MEDIA BUYER RBC <3 <3 /hpf 05/02/2021 DTL 1:14 PM ONLINE MEDIA BUYER WBC 1-3 /hpf 05/02/2021 DTL 1:14 PM ONLINE MEDIA BUYER Comment: ----REFERENCE VALUE---- 1-3 ??(Males) 1-10 (Females) Squamous Epithelial Cells, U 4-10 /hpf 05/02/2021 1:14 PM ONLINE MEDIA BUYER DTL Bacteria Present (A) 05/02/2021 1:14 PM ONLINE MEDIA BUYER DTL Specimen Anatomical Collection Method Collection Time Receive d Time (Source) Location / / Volume Laterality Urine 05/02/2021 10:17 05/02/2021 AM ONLINE MEDIA BUYER 11:05 AM ONLINE MEDIA BUYER Kristen Watts M.D. LAB URINE ORDERABLES Performing Organization Address City/[facility] Phon e Number [address] (ABNORMAL) Urinalysis with Microscopic: Urine, Midstream (05/02/2021 10:17 AM ONLINE MEDIA BUYER) Patholo gist Method Time Signature Source Urine, Urine, 05/02/2021 DTL Midstream 11:04 AM ONLINE MEDIA BUYER Color, U Yellow 05/02/2021 DTL 11:05 AM ONLINE MEDIA BUYER Clarity, U Cloudy (A) 05/02/2021 DTL 11:05 AM ONLINE MEDIA BUYER Protein, U 24 <26 mg/dL 05/02/2021 DTL 12:15 PM ONLINE MEDIA BUYER Protein/Osmol 0.46 (H) <0.42 05/02/2021 DTL ality ratio 12:15 PM ONLINE MEDIA BUYER Predicted 24 332 mg/24 h 05/02/2021 DTL Hr Protein 12:15 PM ONLINE MEDIA BUYER Predicted 82-1344 mg/24 h 05/02/2021 DTL Range 12:15 PM ONLINE MEDIA BUYER Specimen Anatomical Collection Method Collection Time Receive d Time (Source) Location / / Volume Laterality Urine (Urine, 05/02/2021 10:17 05/02/2021 Midstream) AM ONLINE MEDIA BUYER 11:04 AM ONLINE MEDIA BUYER Kristen Watts M.D. LAB URINE ORDERABLES Performing Organization Address City/State/ZIP Code Phon e Number [facility] - [address] [place], [place] [address] [facility] [place] [address] Laboratories-[facility] [address] documented in this encounter Visit Diagnoses Diagnosis Mass Kidney documented in this encounter Additional Health Concerns Assessment Noted Time PHQ-9 Depression Total Score: 11 05/04/2013 4:05 PM CS T documented as of this encounter Care Teams Coagulation Operator Relationship Specialty Start Date End Date Elsewhere, Pcp PCP - General Internal Medicine 07/27/18 documented as of this encounter
--- OUTSIDE RECORDS SUMMARY | 2021-12-27 05:20 | XMS_ITS | Encounter Summary ---
:1955 Author Organization [facility] Address [address] [place] [address] Care Team Providers Name Role Phone Elsewhere, Pcp Primary Care Provider Unavailable Encounter Details Date Type Department Care Team Description 02/06/2021 Clinical Communication Department of Urology Stacy Mathias in [place], M.D. [place] [address] [place] [address] Social History Tobacco Use Types Packs/Day Years [...] or relatives? How often do you attend jain or Never 2018 restorationism services? Do you belong to any clubs or No 02/26/2019 organizations such as jain groups, unions, fraternal or athletic groups, or [...] this encounter Miscellaneous Notes Telephone Encounter - Kristen Watts M.D. - 02/06/2021 1:[address] abdomen pelvis and UA, BMP, uroflow orders placed Please also have patient complete bladder diary prior to a visit, thank you! VITY AIDE Telephone Encounter - Valerie Stallworth - 02/06/2021 12:20 PM CST ~ Place needed orders Patient has referral for Polyuria, pt has orders for follow up visit and CT abdomen. Advise on additional testing needed for follow up with new indication. Thank you, VITY AIDE documented in this encounter Plan of Treatment Not on filedocumented as of this encounter Visit Diagnoses Not on filedocumented in this encounter Additional Health Concerns Assessment Noted Time PHQ-9 Depression Total Score: 05/04/2013 4:05 PM CS T documented as of this encounter Care Teams Digester Capper Relationship Specialty Start Date End Date Elsewhere, Pcp PCP - General Internal Medicine 07/27/18 documented as of this encounter
--- OUTSIDE RECORDS SUMMARY | 2021-12-27 05:20 | XMS_ITS | Encounter Summary ---
:1955 Author Organization [facility] Address [address] [place] [address] Care Team Providers Name Role Phone Elsewhere, Pcp Primary Care Provider Unavailable Encounter Details Date Type Department Care Team Description 03/30/2020 Hospital Encounter Department of Laboratory Geeta Rodriguez [facility] Kidney Medicine and Pathology[place] [address] [place] [address] Social History Tobacco Use Types Packs/Day [...] or relatives? How often do you attend jainism or Never 2018 roman catholic services? Do you belong to any clubs or No 02/26/2019 organizations such as jainism groups, unions, fraternal or athletic groups, or [...] Procedure Name Priority Date/Time Associated Comments Diagnosis MICROSCOPIC MANUAL Routine 03/30/2020 4:05 PM Res ults for this PRESSURIZATION MECHANIC procedure are i n the results section. URINALYSIS WITH Routine 03/30/2020 4:05 PM Mass Kidney Result s for this MICROSCOPIC PRESSURIZATION MECHANIC procedure are i n the results section. documented in this encounter Results (ABNORMAL) Microscopic Manual (03/30/2020 4:05 PM PRESSURIZATION MECHANIC) P athologist Signature Microscopy Abnormal 03/30/2020 FR[place] 6:27 PM PRESSURIZATION MECHANIC WBC 4-10 /hpf 03/30/2020 FR[place] 6:27 PM PRESSURIZATION MECHANIC Comment: ----REFERENCE VALUE---- 1-3 ??(Males) 1-10 (Females) Casts, Hyaline 4-10 /lpf 03/30/2020 6:27 PM PRESSURIZATION MECHANIC RE NA Squamous Epithelial 4-10 /hpf 03/30/2020 6:[address] [place] Cells, U Bacteria Present (A) 03/30/2020 6:27 PM PRESSURIZATION MECHANIC [place] Crystals Calcium Oxalate 03/30/2020 6:27 PM PRESSURIZATION MECHANIC R ALFA crystals present Specimen Anatomical Collection Method Collection Time Receive d Time (Source) Location / / Volume Laterality Urine 03/30/2020 4:05 PM 4:05 PRESSURIZATION MECHANIC PM PRESSURIZATION MECHANIC Geeta Ware M.D. LAB URINE ORDERABLES Performing Organization Address City/State/ZIP Code Phon e Number [facility] - [address] [place], [place] [address] [place] [address] [facility] [address] (ABNORMAL) Urinalysis with Microscopic: Urine, Clean Catch (03/30/2020 4:05 PM PRESSURIZATION MECHANIC) [employer] gist Method Time Signature Source Midstream 03/30/2020 FR[place] 4:05 PM PRESSURIZATION MECHANIC Appearance Normal Normal 03/30/2020 [place] 6:00 PM PRESSURIZATION MECHANIC Osmolality, U 536 150 - 1150 03/30/2020 [place] mOsm/kg 5:24 PM PRESSURIZATION MECHANIC pH, U 6.1 4.5 - 8.0 03/30/2020 [place] 5:24 PM PRESSURIZATION MECHANIC Comment: ----ADDITIONAL INFORMATION---- This test was developed and its performa nce characteristics determined by [facility] in a manner co nsistent with CLIA requirements. This test has not bee n cleared or approved by the U.S. Food and Drug Admin istration. Glucose 16 (H) 0 - 15 mg/dL 03/30/2020 6:00 PM PRESSURIZATION MECHANIC [place] Protein, U 35 (H) <26 mg/dL 03/30/2020 6:00 PM PRESSURIZATION MECHANIC [place] Comment: ----ADDITIONAL INFORMATION---- On 09/17/2016 the total protein assay me thod changed resulting in approximately a 15% increase in prote in values. Protein/Osmolality 0.65 (H) <0.42 Ratio 03/30/2020 6:00 PM PRESSURIZATION MECHANIC [place] Comment: ----ADDITIONAL INFORMATION---- On 09/17/2016 the total protein assay me thod changed resulting in approximately a 15% increase in prote in values. Predicted 24 Hr Protein 454 mg/24 h 03/30/2020 6:00 PM PRESSURIZATION MECHANIC [place] Predicted Range 112-1839 mg/24 h 03/30/2020 6:00 PM PRESSURIZATION MECHANIC R ALFA Hemoglobin, QL Negative Negative 03/30/2020 6:27 PM PRESSURIZATION MECHANIC RE NA Specimen Anatomical Collection Method Collection Time Receive d Time (Source) Location / / Volume Laterality Urine (Urine, 03/30/2020 4:05 PM 03/30/19 4:05 Clean Catch) PRESSURIZATION MECHANIC PM PRESSURIZATION MECHANIC Geeta Ware M.D. LAB URINE ORDERABLES Performing Organization Address City/State/ZIP Code Phon e Number [facility] - [address] [place], [place] [address] [place] [address] [facility] [address] documented in this encounter Visit Diagnoses Diagnosis Mass Kidney documented in this encounter Additional Health Concerns Assessment Noted Time PHQ-9 Depression Total Score: 11 05/04/2013 4:05 PM CS T documented as of this encounter Care Teams Ram Car Operator Relationship Specialty Start Date End Date Elsewhere, Pcp PCP - General Internal Medicine 07/27/18 documented as of this encounter
--- OUTSIDE RECORDS SUMMARY | 2021-12-27 05:20 | XMS_ITS | Encounter Summary ---
:1955 Author Organization [facility] Address [address] [place] [address] Care Team Providers Name Role Phone Elsewhere, Pcp Primary Care Provider Unavailable Reason for Referral MRI/CAT/PET Scan (Routine) - Closed Specialty Diagnoses / Procedures Referred By Contact Refer red To Contact Radiology Diagnoses Mass Kidney Kristen Watts M.D. [facility] Procedures CT Abdomen Pelvis with IV Contrast CT Abdomen Pelvis without and with IV Contrast [address] [place] [address] Referral ID Status Reason Start Date Expiration Date Visits Requ ested Visits Authorized [id number] Closed 02/06/2021 02/06/2022 1 1 utpatient (Routine) - Closed Specialty Diagnoses / Procedures Referred By Contact Refer red To Contact Diagnoses Other Polyuria Kristen Watts M.D. [facility] Procedures URO Uroflow [address] [place] [address] Referral ID Status Reason Start Date Expiration Date Visits Requ ested Visits Authorized [id number] Closed 02/06/2021 02/06/2022 1 1 LINE CATALYST OPERATOR Encounter Details Date Type Department Care Team Description 02/06/2021 Orders Only Department of Urology Kristen Watts Mass Kidney (Primary Dx); [place] Other Polyuria; [address] [place] [address] Diabetes Mellitus Type 2 ([place]) [place] [address] Social History Tobacco Use Types Packs/Day Years [...] or relatives? How often do you attend christianity or Never 2018 moravian services? Do you belong to any clubs or No 02/26/2019 organizations such as christianity groups, unions, fraternal or athletic groups, or [...] on filedocumented as of this encounter Results URO Uroflow (05/03/2021 10:45 AM GASOLINE CATALYST OPERATOR) Narrative Eusebio Tran M.D. - 05/03/2021 10: 45 AM GASOLINE CATALYST OPERATOR Eusebio Tran M.D. ? 05/07/2021 ??9:36 AM [...] dual. ?? Kristen Watts M.D. UROLOGY ORDERABLES CT Abdomen Pelvis with IV Contrast (05/02/2021 11:48 AM GASOLINE CATALYST OPERATOR) Anatomical Region Laterality Modality Abdomen, Pelvis, Abdominal RST LOS, N/A Comp uted Tomography, Computed Abdominal ARZ LOS, Abdominal FLA LOS Godwin ography Specimen (Source) Anatomical Collection Method Collection Time Re ceived Time Location / / Volume Laterality 05/02/2021 11:49 AM GASOLINE CATALYST OPERATOR Impressions 05/02/2021 1:00 PM GASOLINE CATALYST OPERATOR 1. Slight interval enlargement of the 1.6 cm left renal mass likely representing a primary renal neoplasm. 2. No evidence of metastatic disease in the abdomen or pelvis. Narrative 05/02/2021 1:00 PM GASOLINE CATALYST OPERATOR EXAM: ??CT ABDOMEN PELVIS WITH IV CONTRAST COMPARISON: ??Prior abdomen/pelvis CTs, most recently 04/24/2020 FINDINGS: ??Slight interval enlargement of the 1.6 cm oval partially exophytic and heterogeneously enhancing posterior left renal mass (series 3 image 60), previously 1.4 cm. No new suspicious maurice al lesions. Cortical parenchymal scarring in the lower pole left kidney. No hydronephrosis. Patent left renal vein. Diffuse hepatic steatosis. No focal susp icious hepatic lesion. Patent hepatic and portal veins. Cholecystectomy. Mild fatty atrophy of the pancreas. Normal spleen and adrenal glands. Hysterectomy. No free fluid or lymphadenopathy in the abdomen or pelvis. Normal caliber small and large bowel. Re lative lack of haustrations in the left colon. Moderate esophageal/paraesophagea l hiatal hernia. No aggressive osseous lesions. Unchanged compression deformity of the T12 vertebral body. Procedure Note Melly Rahman M.D. - 05/02/2021For matting of this note might be different from the original. EXAM: CT ABDOMEN PELVIS WITH IV CONTRAST COMPARISON: Prior abdomen/pelvis CTs, mo st recently 04/24/2020 FINDINGS: Slight interval enlargement of the 1.6 cm oval partially exophytic and heterogeneously enhancing posterior left renal mass (series 3 image 60), previously 1.4 cm. No new suspicious maurice al lesions. Cortical parenchymal scarring in the lower pole left kidney. No hydronephrosis. Patent left renal vein. Diffuse hepatic steatosis. No focal susp icious hepatic lesion. Patent hepatic and portal veins. Cholecystectomy. Mild fatty atrophy of the pancreas. Normal spleen and adrenal glands. Hysterectomy. No free fluid or lymphadenopathy in the abdomen or pelvis. Normal caliber small and large bowel. Re lative lack of haustrations in the left colon. Moderate esophageal/paraesophagea l hiatal hernia. No aggressive osseous lesions. Unchanged compression deformity of the T12 vertebral body. IMPRESSION: 1. Slight interval enlargement of the 1. 6 cm left renal mass likely representing a primary renal neoplasm. 2. No evidence of metastatic disease in the abdomen or pelvis. Kristen Watts M.D. IMG CT PROCEDURES (ABNORMAL) Urinalysis with Microscopic: Urine, Midstream (05/02/2021 10:17 AM GASOLINE CATALYST OPERATOR) Patholo gist Method Time Signature Source Urine, Urine, 05/02/2021 DTL Midstream 11:04 AM GASOLINE CATALYST OPERATOR Color, U Yellow 05/02/2021 DTL 11:05 AM GASOLINE CATALYST OPERATOR Clarity, U Cloudy (A) 05/02/2021 DTL 11:05 AM GASOLINE CATALYST OPERATOR Protein, U 24 <26 mg/dL 05/02/2021 DTL 12:15 PM GASOLINE CATALYST OPERATOR Protein/Osmol 0.46 (H) <0.42 05/02/2021 DTL ality ratio 12:15 PM GASOLINE CATALYST OPERATOR Predicted 24 332 mg/24 h 05/02/2021 DTL Hr Protein 12:15 PM GASOLINE CATALYST OPERATOR Predicted 82-1344 mg/24 h 05/02/2021 DTL Range 12:15 PM GASOLINE CATALYST OPERATOR Specimen Anatomical Collection Method Collection Time Receive d Time (Source) Location / / Volume Laterality Urine (Urine, 05/02/2021 10:17 05/02/2021 Midstream) AM GASOLINE CATALYST OPERATOR 11:04 AM GASOLINE CATALYST OPERATOR Kristen Watts M.D. LAB URINE ORDERABLES Performing Organization Address City/[facility] Phon e Number [facility] - [address] (ABNORMAL) Hemoglobin A1c (05/02/2021 10:07 AM GASOLINE CATALYST OPERATOR) P athologist Signature Hemoglobin A1c, 6.7 (H) 4.0 - 5.6 05/02/2021 DTL B % 10:48 AM GASOLINE CATALYST OPERATOR Comment: Hemoglobin A1c values greater than or eq ual to 6.5 percent are diagnostic for diabetes mellitus. ?? Diagnosis should be confirmed by repeat testing. ??In diabet ic patients, HbA1c goals should be discussed with healthcar e provider. Specimen Anatomical Collection Method Collection Time Receive d Time (Source) Location / / Volume Laterality Blood (Blood, 05/02/2021 10:07 05/02/2021 Venous) AM GASOLINE CATALYST OPERATOR 10:27 AM GASOLINE CATALYST OPERATOR Kristen Watts M.D. LAB BLOOD ADD-ON Performing Organization Address City/[facility]/ZIP [facility] Phon e Number [facility] - [address] [place] [address] Basic Metabolic Panel (05/02/2021 10:07 AM GASOLINE CATALYST OPERATOR) P athologist Signature Potassium, S 4.1 3.6 - 5.2 05/02/2021 DTL mmol/L 11:21 AM GASOLINE CATALYST OPERATOR Sodium, S 141 135 - 145 05/02/2021 DTL mmol/L 11:21 AM GASOLINE CATALYST OPERATOR Chloride, S 103 98 - 107 05/02/2021 DTL mmol/L 11:21 AM GASOLINE CATALYST OPERATOR Bicarbonate, S 26 22 - 29 05/02/2021 DTL mmol/L 11:21 AM GASOLINE CATALYST OPERATOR Anion Gap 12 7 - 15 05/02/2021 DTL 11:21 AM GASOLINE CATALYST OPERATOR BUN (Blood Urea 12 6 - 21 05/02/2021 DTL Nitrogen), S mg/dL 11:21 AM GASOLINE CATALYST OPERATOR Creatinine 0.92 0.59 - 05/02/2021 DTL 1.04 mg/dL 11:21 AM GASOLINE CATALYST OPERATOR eGFR-Non 66 >=60 05/02/2021 DTL Black/ mL/min/BSA 11:21 AM GASOLINE CATALYST OPERATOR Algerian Comment: ----ADDITIONAL INFORMATION---- Estimated GFR calculated using the 2009 CKD_EPI creatinine equation. eGFR-Black/ 76 >=60 mL/min/BSA 2021 11:21 AM GASOLINE CATALYST OPERATOR DTL Comment: ----ADDITIONAL INFORMATION---- Estimated GFR calculated using the 2009 CKD_EPI creatinine equation. Calcium, Total, S 9.3 8.8 - 10.2 mg/dL 05/02/2021 11:2 1 AM GASOLINE CATALYST OPERATOR DTL Glucose, S 128 70 - 140 mg/dL 05/02/2021 11:21 AM GASOLINE CATALYST OPERATOR DTL Specimen Anatomical Collection Method Collection Time Receive d Time (Source) Location / / Volume Laterality Blood (Blood, 05/02/2021 10:07 05/02/2021 Venous) AM GASOLINE CATALYST OPERATOR 10:54 AM GASOLINE CATALYST OPERATOR Kristen Watts M.D. LAB BLOOD ADD-ON Performing Organization Address City/State/ZIP Code Phon e Number [facility] - [address] [place], [place] [address] [facility] [place] [address] [facility] [address] documented in this encounter Visit Diagnoses Diagnosis Mass Kidney - Primary Other Polyuria Diabetes Mellitus Type 2 (HCC) Mass Kidney Other Polyuria Feeling Of Incomplete Bladder Emptying Frequency Urinary documented in this encounter Additional Health Concerns Assessment Noted Time PHQ-9 Depression Total Score: 11 05/04/2013 4:05 PM CS T documented as of this encounter Care Teams Supply And Distribution Manager Relationship Specialty Start Date End Date Elsewhere, Pcp PCP - General Internal Medicine 07/27/18 documented as of this encounter
--- OUTSIDE RECORDS SUMMARY | 2021-12-27 05:20 | XMS_ITS | Encounter Summary ---
:1955 Author Organization [facility] Address [address] [place] [address] Care Team Providers Name Role Phone Elsewhere, Pcp Primary Care Provider Unavailable Reason for Referral MRI/CAT/PET Scan (Routine) - Closed Specialty Diagnoses / Procedures Referred By Contact Refer steven To Contact Radiology Diagnoses Kidney And Ureter Disorder Brian Mathias M.D. [facility] Procedures CT Abdomen with IV Contrast CT Abdomen without and with IV Contrast [address] [place] [address] Referral ID Status Reason Start Date Expiration Date Visits Requ ested Visits Authorized [id number] Closed 04/11/2020 04/11/2021 1 1 L DEVELOPER Reason for Visit Outpatient (Routine) - Closed Specialty Diagnoses / Procedures Referred By Contact Reggie harris To Contact Urology Zac Gonzalez M.D. [facility] [address] [place] [address] Referral ID Status Reason Start Date Expiration Date Visits Requ ested Visits Authorized [id number] Closed 01/05/2020 01/04/2021 1 1 Encounter Details Date Type Department Care Team Description 04/11/2020 Office Visit Department of Urology Brian Mathias Ma ss Kidney (Primary Dx); in [place] [facility] [place] [address] [place] [phone] Social History Tobacco Use Types Packs/Day Years [...] do you attend hinduism or Never 2018 anabaptism services? Do you belong to any clubs [...] documented as of this encounter Progress Notes Brian Mathias M.D. - 04/11/2020 3:00 PM CST PROGRESS NOTE REASON FOR VISIT CHURCH COMMUNICATIONS ADMINISTRATOR Calendar HISTORY OF PRESENT ILLNESS Ms. Metcalf is a pleasant 65 y.o. female with a past medical history of a small renal mass who presents for follow-up. Ms. Metcalf was last seen in December of [address] Gonzalez for a 1 cm mostly exophytic solid renal mass in the left posterior mid kidney. At that time, patient elected to proceed with active surveillance. She presents for her 3-4 month follow-up. Patient does note that she underwent a CT abdomen and pelvis in January of 2020. This was a noncontrast enhanced study. In the interim, patient denies frequency, dysuria, hematuria, recurrent UTI. She does carry history of nephrolithiasis requiring ureteroscopy and outside institution. She endorse mild urgency. No hesitancy, straining, incomplete emptying, double voiding, post void dribbling. She is not on blood thinning medications. Prior abdominal and pelvic surgery includes section x2, cholecystectomy, and TAHBSO. ROS: The patient denies any of the following current symptoms: Fever, changes in vision, chest pain, shortness of breath, persistent cough, abdominal pain, nausea, vomiting, hematuria, rashes, bone pain, muscle weakness, hot flashes, headaches, changes in mentation, swollen lymph nodes/glands, or anxiety. PMHx Patient Active Problem List Diagnosis ??? Asthma NOS ??? Flutter Atrial (HCC) ??? Hypertension Essential Primary ??? Apnea Sleep Obstructive ??? Constipation ??? Contracture Shoulder Joint Right ??? Diabetes Mellitus Type 2 Without Complication (HCC) ??? Other Specified Anxiety Disorders ??? Primary Osteoarthritis Acromioclavicular Left ??? Dyspnea NOS ??? Fatigue Chronic ??? Fibromyalgia ??? Gastroesophageal Reflux Disease NOS ??? Anemia Iron Deficiency ??? Irregular Sleep-Wake Rhythm Disorder ??? Migraine Headache ??? Asthma Mild Persistent (HCC) ??? Hyperlipidemia Mixed ??? Pain Musculoskeletal Widespread Chronic ??? Posttraumatic Stress Disorder Brief ??? Unsteadiness Gait Disorder Non Orthopedic ??? Acute On Chronic Diastolic (Congestive) Heart Failure (HCC) ??? Hyperlipidemia On Treatment ??? Thrombus Atrial (HCC) ??? Atrial Fibrillation Paroxysmal (HCC) ??? Anticoagulant Therapy ??? Dysfunction Sinus Node (HCC) MEDICATIONS Current Outpatient Medications: ??? acetaminophen (TYLENOL) 325 [...] days of the week, Disp: , Rfl: SURGICAL HISTORY Past Surgical History: Procedure Laterality Date ??? CARDIAC CATHETERIZATION N/A 04/19/2019 Procedure: Ultrasound guidance for vascular access; Surgeon: Marla Yeager M.B.B.S.; Location: [facility] [...] [facility] HRS ??? SECTION ??? THERAPEUTIC FAMILY HISTORY Family History Problem Relation Age of Onset ??? Hypertension Father ??? Coronary artery disease Father ??? Hyperlipidemia Father SOCIAL HISTORY Social History Tobacco Use ??? Smoking status: Never Smoker ??? Smokeless tobacco: Never Used ??? Tobacco comment: has a roommate that smokes Substance Use Topics ??? Alcohol use: Not Currently Types: 3 Standard drinks or equivalent per week Frequency: Monthly or less Drinks per session: 1 or 2 Binge frequency: Never ??? Drug use: Never OBJECTIVE There were no vitals filed for this visit. PHYSICAL EXAM Constitutional: Alert and oriented, no acute distress Eyes: No scleral icterus CV: Regular rate and rhythm Resp: Normal respiratory effort GI: Abdomen soft, non-tender Musculoskeletal: Normal gait noted with ambulation Neurological: Sensation intact in abdomen and bilateral upper extremities Skin: No rashes Psychiatric: Appropriate affect LABORATORY None IMAGING No new imaging ASSESSMENT / PLAN #1 Small left renal mass, 1 cm #2 Type 2 diabetes #3 Hypertension #4 CHAPITO on CPAP #5 GERD #6 AFib a flutter status post ablation on warfarin #7 Fibromyalgia #8 Depression It is my pleasure evaluating Ms. Metcalf in follow-up for a small left renal mass measuring approximately 1 cm in greatest dimension. We again reviewed management options for small renal masses which would include, partial nephrectomy, radical nephrectomy, active surveillance, percutaneous cryoablatio n, or percutaneous biopsy. We reviewed the risks and benefits of each approach. We reviewed the low risk of development of metastatic disease with small renal masses less than 4 cm. Unfortunately, Ms. Metcalf does not have repeat imaging today at time of her visit. I recommended a repeat CT of the abdomen with and without IV contrast. We will obtain this and review the results. If this is unremarkable we repeat imaging in 6-9 months to assess for any additional interval growth. Plan: CT abdomen and pelvis with and without IV contrast 20 minutes spent on patient care with 50% being face to face. Signed by: Brian Mathias M.D. 04/11/2020 7:00 AM EXCEL DEVELOPER Answers for HPI/ROS submitted by the patient on 03/30/2020 Fatigue: Yes Visual problems: Yes Persistent hoarse voice: Yes Chest pain, pressure or tightness: Yes Shortness of breath when lying flat: Yes Shortness of breath: Yes Abdominal (belly) pain or cramping: Yes Heartburn: Yes Muscle pain/stiffness: Yes Pain or stiffness in the joints: Yes Skin rash: Yes Headache: Yes Loud snoring: Yes Excessive daytime sleepiness/tiredness: Yes Bruises/bleeds easily: Yes Frequent urination: Yes L DEVELOPER documented in this encounter Plan of Treatment Not on filedocumented as of this encounter Results CT Abdomen with IV Contrast (04/24/2020 1:25 PM EXCEL DEVELOPER) Anatomical Region Laterality Modality Abdomen, Abdominal RST LOS, Abdominal N/A Co mputed Tomography, Computed ARZ LOS, Abdominal FLA LOS Tomography Specimen (Source) Anatomical Collection Method Collection Time Re ceived Time Location / / Volume Laterality 04/24/2020 2:21 PM EXCEL DEVELOPER Impressions 04/24/2020 2:47 PM EXCEL DEVELOPER 1. No change since 11/30/2019 indeterminate 1.4 cm left renal mass likely representing primary renal neoplasm. 2. Small hiatal hernia. 3. Probable osteoporosis. Narrative 04/24/2020 2:47 PM EXCEL DEVELOPER EXAM: ??CT ABDOMEN WITH IV CONTRAST COMPARISON: [...] Visit Diagnoses Diagnosis Mass Kidney - Primary Kidney And Ureter Disorder Kidney And Ureter Disorder documented in this encounter Additional Health Concerns Assessment Noted Time PHQ-9 Depression Total Score: 11 05/04/2013 4:05 PM CS T documented as of this encounter Care Teams Cardiac Care Nurse Relationship Specialty Start Date End Date Elsewhere, Pcp PCP - General Internal Medicine 07/27/18 documented as of this encounter
--- OUTSIDE RECORDS SUMMARY | 2021-12-27 05:20 | XMS_ITS | Encounter Summary ---
:1955 Author Organization [facility] Address [address] [place] [address] Care Team Providers Name Role Phone Elsewhere, Pcp Primary Care Provider Unavailable Encounter Details Date Type Department Care Team Description 05/04/2020 Clinical Communication Department of Urology Stacy Mathias in [place], M.D. [place] [address] [place] [address] Social History Tobacco Use Types Packs/Day Years [...] or relatives? How often do you attend hoahaoism or Never 2018 gnosticist services? Do you belong to any clubs or No 02/26/2019 organizations such as hoahaoism groups, unions, fraternal or athletic groups, or [...] this encounter Miscellaneous Notes Telephone Encounter - Brian Mathias M.D. - 05/04/2020 4:40 PM CST Discuss the results of her CT scan results. This shows no change in her renal mass. We reviewed options of management which include cryoablation, partial nephrectomy, radical nephrectomy, or continued surveillance. Patient elects for continued surveillance. We will repeat CT imaging in 9 months time followed by an office visit. All questions answered. Orders placed. TROTYPE FINISHER documented in this encounter Plan of Treatment Not on filedocumented as of this encounter Visit Diagnoses Not on filedocumented in this encounter Additional Health Concerns Assessment Noted Time PHQ-9 Depression Total Score: 11 05/04/2013 4:05 PM CS T documented as of this encounter Care Teams Air Support Operations Operator Relationship Specialty Start Date End Date Elsewhere, Pcp PCP - General Internal Medicine 07/27/18 documented as of this encounter
--- OUTSIDE RECORDS SUMMARY | 2021-12-27 05:20 | XMS_ITS | Encounter Summary ---
:1955 Author Organization [facility] Address [address] [place] [address] Care Team Providers Name Role Phone Elsewhere, Pcp Primary Care Provider Unavailable Reason for Visit Outpatient (Routine) - Closed Specialty Diagnoses / Procedures Referred By Contact Refer red To Contact Otorhinol[facility]ology Diagnoses [facility] [address] [place] [phone] Referral ID Status Reason Start Date Expiration Date Visits Requ ested Visits Authorized [id number] Closed 03/30/2020 03/30/2021 1 1 Encounter Details Date Type Department Care Team Description 04/11/2020 Comprehensive Visit Department of Wendy Kim ess Otorhinolaryngology in [place] Martínez [place], [place] P.A.-C., [address] [place] [phone] 200 [facility] [phone] [place] [address] Social History Tobacco Use Types Packs/Day Years [...] do you attend hinduism or Never 2018 spiritism services? Do you belong to any clubs [...] documented as of this encounter Consult Notes Nagi Kim P.A.-C., M.S. - 04/11/2020 1:00 PM CST CHIEF COMPLAINT/PURPOSE OF VISIT: Chronic hoarseness Referring Provider Geeta Rodriguez M.D. HISTORY OF PRESENT ILLNESS: Iris Metcalf is a very pleasant 65 y.o. female who presents for ENT evaluation of hoarseness. The patient comes referred from pulmonology, with whom she met on 03/30/2020. Past medical history issignificant for atrial fibrillation on Coumadin, hypertension, hyperlipidemia, CHAPITO, asthma, and type2 diabetes. At her most recent pulmonology visit, she reported difficulty with hoarseness, and for this in ENT evaluation was arranged. Today, Ms. Metcalf notes a longstanding history of hoarseness. She had some difficulty describing the quality of her voice, but notes it is ???low.?? She thinks the hoarseness is a bit worse in the afternoon and evening. Aside from this, she denies any specific exacerbating or alleviating factors related to the dysphonia. She denies associated symptoms with the hoarseness, although has longstandingxerostomia and an intermittent dry throat. She has not had her voice previously evaluated. She denies a history of pain with phonation, voice strain, or vocal fatigue. Swallowing has been normal. She denies any history of choking, odynophagia, or pain in the ears withswallowing. Her breathing is stable, but ???not good.?? She has a history of asthma, utilizing an albuterol inhaler on a p.r.n. basis, and Breo Ellipta each morning. She denies any stridor. She has not had any exacerbation in her breathing concurrent with hoarseness. Aside from rhinorrhea, she is asymptomatic from a sinonasal standpoint, specifically denying postnasal drainage, nasal congestion, or nasal obstruction. She takes Pepcid and omeprazole on a p.r.n. basis for reflux, but denies frequent symptoms of GERD. No history of palpable masses in the head or neck, hemoptysis, hematemesis, otalgia, fevers, chills, or unexplained weight loss. ROS: Pertinent items are noted in HPI; all other review of systems were negative. CURRENT MEDICATIONS: Reviewed and updated in the EMR. ALLERGIES: Reviewed and updated in the EMR. PAST MEDICAL HISTORY: Reviewed and updated in the EMR. SURGICAL HISTORY: Reviewed and updated in the EMR. Family History: Reviewed and updated in the EMR. Social History: Social History Tobacco Use ??? Smoking status: Never Smoker ??? Smokeless tobacco: Never Used ??? Tobacco comment: has a roommate that smokes Substance Use Topics ??? Alcohol use: Not Currently Types: 3 Standard drinks or equivalent per week Frequency: Monthly or less Drinks per session: 1 or 2 Binge frequency: Never ??? Drug use: Never PHYSICAL EXAM: General: Awake, alert, and oriented times three. In no acute distress. Head: Normocephalic, atraumatic. Hair and scalp normal. Face: Symmetric. House-Brackmann 1/6 bilaterally. Eyes: Pupils equal, round, and reactive to light bilaterally. Extraocular muscles are intact. Ears: Normal shaped pinna bilaterally. External auditory canals are clear. Tympanic membranes are intact with well-aerated middle ear spaces bilaterally. Mastoid area is non-tender, non-erythematous, and non-fluctuant bilaterally. Nose: The nares are patent. Nasal mucosa is pink and moist. Nasal cavities are clear without masses or discharge. No polyps, septal deviation, or mucopurulence on anterior rhinoscopy. Mouth: Poor-appearing dentition. Without trismus. Tongue is midline and mobile. Oral and buccal mucosa is pink , although dry. It appears that she has some dental trauma to the left buccal mucosa. She had some white debris on the roof of the mouth, however there is no associated erythema, and this it was easily scraped off with a tongue depressor. No bleeding after scraping this off. Tonsils are non-erythematous and without exudates bilaterally, with the right tonsil slightly larger than the left. Uvula is midline and there is no asymmetry of the palatal arch. could not palpate base of tongue or oropharynx due to poor tolerance of the examination. Neck: Supple, normal range of motion. Trachea is midline. No palpable cervical lymphadenopathy or masses bilaterally. Normal carotid pulses bilaterally. Thyroid is non-tender and without palpable nodules. Nonspecific Neck is obese. Neurologic: Cranial Nerves II through XII are grossly intact. 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 Pulmonary: Patient has non-labored breathing. No audible stridor. Skin: [place] and dry. Psych: Appropriate mood and affect. ASSESSMENT: #1 Hoarseness PLAN: It was a pleasure to meet with Ms. Metcalf in the clinic today. Unfortunately, it is difficult to know the etiology of her dysphonia. She was unable to tolerate mirror endoscopy or flexible fiberopticlaryngoscopy today. She does have some anterior neck tightness, although nonspecifically so. This combined with the strained quality of her voice could be consistent with muscle tension dysphonia, and may be amendable to speech therapy intervention. I offered a speech language pathology consultation despite our inability to complete her laryngoscopy, however she would like to defer this for now. We discussed conservative management of the hoarseness, which would include adequate hydration, Biotene products for xerostomia, and control of her gastroesophageal reflux disease. We reviewed red flag symptoms, which should warrant re- evaluation in ENT. I will otherwise see her back on a p.r.n. basis. RONMENTAL ADVISER documented in this encounter Plan of Treatment Not on filedocumented as of this encounter Visit Diagnoses Diagnosis Hoarseness Chronic documented in this encounter Additional Health Concerns Assessment Noted Time PHQ-9 Depression Total Score: 11 05/04/2013 4:05 PM CS T documented as of this encounter Care Teams Android Framework Developer Relationship Specialty Start Date End Date Elsewhere, Pcp PCP - General Internal Medicine 07/27/18 documented as of this encounter
--- OUTSIDE RECORDS SUMMARY | 2021-12-27 05:20 | XMS_ITS | Encounter Summary ---
:1955 Author Organization [facility] Address [address] [place] [address] Care Team Providers Name Role Phone Elsewhere, Pcp Primary Care Provider Unavailable Encounter Details Date Type Department Care Team Description 04/07/2020 Hospital Encounter [facility] [address] [phone] Social History Tobacco Use Types Packs/Day Years [...] or relatives? How often do you attend christian or Never 2018 yazidi services? Do you belong to any clubs or No 02/26/2019 organizations such as christian groups, unions, fraternal or athletic groups, or [...] filedocumented in this encounter Additional Health Concerns Infection Onset Date Last Indicated Resolved Time COVID19 Pending 04/07/2020 04/07/2020 04/07/2020 7:59 PM ANALYTIC MANAGER Assessment Noted Time PHQ-9 Depression Total Score: 11 05/04/2013 4:05 PM CS T documented as of this encounter Care Teams Infrastructure Developer Relationship Specialty Start Date End Date Elsewhere, Pcp PCP - General Internal Medicine 07/27/18 documented as of this encounter
--- OUTSIDE RECORDS SUMMARY | 2021-12-27 05:20 | XMS_ITS | Encounter Summary ---
:1955 Author Organization [facility] Address [address] [place] [address] Care Team Providers Name Role Phone Elsewhere, Pcp Primary Care Provider Unavailable Reason for Referral Outpatient (Routine) - Closed Specialty Diagnoses / Procedures Referred By Contact Refer red To Contact Urology Brian Mathias M.D . [address] [phone] Referral ID Status Reason Start Date Expiration Date Visits Requ ested Visits Authorized [id number] Closed 05/04/2020 05/04/2021 1 1 FARMER Encounter Details Date Type Department Care Team Description 05/04/2020 Orders Only Department of Urology Brian Mathias [facility] Ure[facility] in [place] Carlos Disorder (Prim raman Dx) [address] [phone] Social History Tobacco Use Types Packs/Day Years [...] or relatives? How often do you attend restorationism or Never 2018 methodist services? Do you belong to any clubs or No 02/26/2019 organizations such as restorationism groups, unions, [employer] ( [employer] ) or athletic groups, or school groups? How [...] Treatment Scheduled Referrals Name Type Priority Associated Diagnoses Order S radhika Urology office Outpatient Referral Routine Expect ed: visit (clinic) 02/01/2021 (Approximate), Expires: 05/04/2023 documented as of this encounter Visit Diagnoses Diagnosis Kidney And Ureter Disorder - Primary documented in this encounter Additional Health Concerns Assessment Noted Time PHQ-9 Depression Total Score: 05/04/2013 4:05 PM CS T documented as of this encounter Care Teams Patient Safety Manager Relationship Specialty Start Date End Date Elsewhere, Pcp PCP - General Internal Medicine 07/27/18 documented as of this encounter
--- OUTSIDE RECORDS SUMMARY | 2021-12-27 05:20 | XMS_ITS | Encounter Summary ---
:1955 Author Organization [facility] Address [address] [place] [address] Care Team Providers Name Role Phone Elsewhere, Pcp Primary Care Provider Unavailable Reason for Referral MRI/CAT/PET Scan (Routine) - Closed Specialty Diagnoses / Procedures Referred By Contact Refer red To Contact Radiology Diagnoses Mass Kidney Kristen Watts M.D. [place] Procedures CT Abdomen Pelvis with IV Contrast CT Abdomen Pelvis without and with IV Contrast [address] [place] [address] Referral ID Status Reason Start Date Expiration Date Visits Requ ested Visits Authorized [id number] Closed 02/06/2021 02/06/2022 1 1 TIONS DIRECTOR Reason for Visit MRI/CAT/PET Scan (Routine) - Closed Specialty Diagnoses / Procedures Referred By Contact Refer steven To Contact Radiology Diagnoses Mass Kidney Kristen Watts M.D. [place] Procedures CT Abdomen Pelvis with IV Contrast CT Abdomen Pelvis without and with IV Contrast [address] [place] [address] Referral ID Status Reason Start Date Expiration Date Visits Requ ested Visits Authorized [id number] Closed 02/06/2021 02/06/2022 1 1 Encounter Details Date Type Department Care Team Description 05/02/2021 Hospital Encounter Department of Radiology, Yamile Watts M.D. Mass Kidney [facility], in [place], [place] [address] [place] [phone] Social History Tobacco Use Types Packs/Day [...] or relatives? How often do you attend catholic or Never 2018 alevism services? Do you belong to any clubs or No 02/26/2019 organizations such as catholic groups, unions, fraternal or athletic groups, or [...] Treatment Scheduled Orders Name Type Priority Associated Diagnoses Order S chedule Creatinine, POCT Point of Care Routine Routine la b collection Testing-Docked (next collect ion) for Device 1 Occurrences s tarting 05/02/2021 unti l 05/02/2021 documented as of this encounter Procedures Procedure Name Priority Date/Time Associated Comments Diagnosis CT ABDOMEN PELVIS RAD - Routine 05/02/2021 11:48 Mass Kidney Resul ts for this WITH IV CONTRAST (most inpatients AM RELATIONS DIRECTOR procedu re are in and all the results outpatients) section. CREATININE, POCT, Routine 05/02/2021 11:23 Result s for this B AM RELATIONS DIRECTOR procedure are i n the results section. CREATININE, POCT, Routine 05/02/2021 11:23 Result s for this B AM RELATIONS DIRECTOR procedure are i n the results section. documented in this encounter Results CT Abdomen Pelvis with IV Contrast (05/02/2021 11:48 AM RELATIONS DIRECTOR) Anatomical Region Laterality Modality Abdomen, Pelvis, Abdominal RST LOS, N/A Comp uted Tomography, Computed Abdominal ARZ LOS, Abdominal FLA LOS Godwin ography Specimen (Source) Anatomical Collection Method Collection Time Re ceived Time Location / / Volume Laterality 05/02/2021 11:49 AM RELATIONS DIRECTOR Impressions 05/02/2021 1:00 PM RELATIONS DIRECTOR 1. Slight interval enlargement of the 1.6 cm left renal mass likely representing a primary renal neoplasm. 2. No evidence of metastatic disease in the abdomen or pelvis. Narrative 05/02/2021 1:00 PM RELATIONS DIRECTOR EXAM: ??CT ABDOMEN PELVIS WITH IV CONTRAST [...] pelvis. Kristen Watts M.D. IMG CT PROCEDURES Creatinine, POCT (05/02/2021 11:23 AM RELATIONS DIRECTOR) athologist Signature Creatinine, 0.7 0.6 - 1.0 05/02/2021 PCDT POCT, B mg/dL 11:28 AM RELATIONS DIRECTOR Comment: ----ADDITIONAL INFORMATION---- Performed at the Point of Care Specimen Anatomical Collection Method Collection Time Receive d Time (Source) Location / / Volume Laterality Blood 05/02/2021 11:23 05/02/2021 AM RELATIONS DIRECTOR 11:29 AM RELATIONS DIRECTOR Unknown Provider LAB POCT ORDERABLES - DEVICE Performing Organization Address City/State/ZIP Code Phon e Number POC [place] [facility] [address] [place] [address] LABS PCDT [facility] [place] [address] [facility] [address] Creatinine, POCT (05/02/2021 11:23 AM RELATIONS DIRECTOR) P athologist Signature eGFR-Black/Afri >90 >=60 05/02/2021 PCDT can Central African, mL/min/BSA 11:29 AM RELATIONS DIRECTOR POCT Comment: ----ADDITIONAL INFORMATION---- Estimated GFR calculated using the 2009 CKD_EPI creatinine equation. eGFR Non-Black/, >90 >=60 mL/min/BSA 05/02/2021 11:29 AM RELATIONS DIRECTOR PCDT POCT Comment: ----ADDITIONAL INFORMATION---- Estimated GFR calculated using the 2009 CKD_EPI creatinine equation. Specimen Anatomical Collection Method Collection Time Receive d Time (Source) Location / / Volume Laterality Blood 05/02/2021 11:23 05/02/2021 AM RELATIONS DIRECTOR 11:29 AM RELATIONS DIRECTOR Unknown Provider LAB POCT ORDERABLES - DEVICE Performing Organization Address City/State/ZIP Code Phon e Number [facility] PERFORM[facility] [address] [place] [address] LABS PCDT [facility] [place] [address] [facility] [address] documented in this encounter Visit Diagnoses Diagnosis Mass Kidney documented in this encounter Administered Medications Inactive Administered Medications - up to 3 most recent administrations Medication Order MAR Action Action Date Dose Rate Site iohexoL 300 mg iodine/mL solution Given 05/02/2021 11:38 AM RELATIONS DIRECTOR 140 mL 1-200 mL (OMNIPAQUE) 1-200 mL, intravenous, Once in imaging, contrast, Starting on Fri05/02/21 at 1114, For 1 dose, Imaging Protocol Orders, Dose per Radiant Medication Guidelines sodium chloride (PF) 0.9 % injection 1-1 00 mL Given 05/02/2021 11:38 AM RELATIONS DIRECTOR 50 mL 1-100 mL, intravenous, Once, On Fri05/02/21 at 1115, For 1 dose, Imaging Protocol Orders documented in this encounter Additional Health Concerns Assessment Noted Time PHQ-9 Depression Total Score: 11 05/04/2013 4:05 PM CS T documented as of this encounter Care Teams Pattern Clerk Relationship Specialty Start Date End Date Elsewhere, Pcp PCP - General Internal Medicine 07/27/18 documented as of this encounter
--- OUTSIDE RECORDS SUMMARY | 2021-12-27 05:21 | XMS_ITS | Encounter Summary ---
:1955 Author Organization [facility] Address [address] [place] [address] Care Team Providers Name Role Phone Elsewhere, Pcp Primary Care Provider Unavailable Encounter Details Date Type Department Care Team Description 03/30/2020 Hospital Encounter Department of Laboratory Geeta oRdriguez [facility] Medicine [facility] [address] [place] [phone] Social History Tobacco Use Types Packs/Day [...] or relatives? How often do you attend voodoo or Never 2018 buddhism services? Do you belong to any clubs or No 02/26/2019 organizations such as voodoo groups, unions, fraternal or athletic groups, or [...] Procedure Name Priority Date/Time Associated Comments Diagnosis CBC WITHOUT Routine 03/30/2020 3:11 Mass Kidney Results for this DIFFERENTIAL, B PM WINDMILL TECHNICIAN procedure ar e in the results section. ALANINE AMINOTRANSFERASE Routine 03/30/2020 3:11 Mass Kidney Results for this (ALT), S/P PM WINDMILL TECHNICIAN procedure are i n the results section. ASPARTATE Routine 03/30/2020 3:11 Mass Kidney Results for this AMINOTRANSFERASE (AST), PM WINDMILL TECHNICIAN proc edure are in S/P the results section. ALKALINE PHOSPHATASE, Routine 03/30/2020 3:11 Mass Kidney Res ults for this S/P PM WINDMILL TECHNICIAN procedure are i n the results section. BASIC METABOLIC PANEL, Routine 03/30/2020 3:11 Mass Kidney Re sults for this S/P PM WINDMILL TECHNICIAN procedure are i n the results section. documented in this encounter Results (ABNORMAL) CBC without Differential (03/30/2020 3:11 PM WINDMILL TECHNICIAN) [facility] Method Time Signature Hemoglobin 13.9 11.6 - 03/30/2020 DTL 15.0 g/dL 3:44 PM WINDMILL TECHNICIAN Hematocrit 42.8 35.5 - 03/30/2020 DTL 44.9 % 3:44 PM WINDMILL TECHNICIAN Erythrocytes 4.58 3.92 - 03/30/2020 DTL 5.13 3:44 PM WINDMILL TECHNICIAN x10(12)/L MCV 93.4 78.2 - 03/30/2020 DTL 97.9 fL 3:44 PM WINDMILL TECHNICIAN RBC Distrib Width 12.5 12.2 - 03/30/2020 DTL 16.1 % 3:44 PM WINDMILL TECHNICIAN Platelet Count 481 (H) 157 - 371 03/30/2020 DTL x10(9)/L 3:44 PM WINDMILL TECHNICIAN Leukocytes 10.9 (H) 3.4 - 9.6 03/30/2020 DTL x10(9)/L 3:44 PM WINDMILL TECHNICIAN Specimen Anatomical Collection Method Collection Time Receive d Time (Source) Location / / Volume Laterality Blood (Blood, 03/30/2020 3:11 PM 03/30/19 3:34 Venous) WINDMILL TECHNICIAN PM WINDMILL TECHNICIAN Geeta Ware M.D. LAB BLOOD ADD-ON Performing Organization Address City/State/ZIP Code Phon e Number [facility] - [address] [place], [place] [address] [facility] [place] [address] Laboratories-[facility] [address] ALT (Alanine Aminotransferase) (03/30/2020 3:11 PM WINDMILL TECHNICIAN) [facility] Method Time Signature Alanine 27 7 - 45 03/30/2020 DTL Aminotransferase U/L 5:05 PM WINDMILL TECHNICIAN (ALT), S Specimen Anatomical Collection Method Collection Time Receive d Time (Source) Location / / Volume Laterality Blood (Blood, 03/30/2020 3:11 PM 03/30/19 3:34 Venous) WINDMILL TECHNICIAN PM WINDMILL TECHNICIAN Geeta Ware M.D. LAB BLOOD ADD-ON Performing Organization Address City/[facility] Phon e Number [facility] - 200 [place], [place] [address] [place] [address] AST (Aspartate Aminotransferase) (03/30/2020 3:11 PM WINDMILL TECHNICIAN) Patholo gist Method Time Signature Aspartate 22 8 - 43 03/30/2020 DTL Aminotransferase U/L 5:05 PM WINDMILL TECHNICIAN (AST), S Specimen Anatomical Collection Method Collection Time Receive d Time (Source) Location / / Volume Laterality Blood (Blood, 03/30/2020 3:11 PM 03/30/19 3:34 Venous) WINDMILL TECHNICIAN PM WINDMILL TECHNICIAN eGeta Ware M.D. LAB BLOOD ADD-ON Performing Organization Address City/[facility] Code Phon e Number [facility] - [address] (ABNORMAL) Alkaline Phosphatase (03/30/2020 3:11 PM WINDMILL TECHNICIAN) P athologist Signature Alkaline 116 (H) 35 - 104 03/30/2020 DTL Phosphatase, S U/L 5:05 PM WINDMILL TECHNICIAN Specimen Anatomical Collection Method Collection Time Receive d Time (Source) Location / / Volume Laterality Blood (Blood, 03/30/2020 3:11 PM 03/30/19 3:34 Venous) WINDMILL TECHNICIAN PM WINDMILL TECHNICIAN Geeta Ware M.D. LAB BLOOD ADD-ON Performing Organization Address City/[facility] Phon e Number [facility] - [address] (ABNORMAL) Basic Metabolic Panel (03/30/2020 3:11 PM WINDMILL TECHNICIAN) P athologist Signature Potassium, S 3.5 (L) 3.6 - 5.2 03/30/2020 DTL mmol/L 5:05 PM WINDMILL TECHNICIAN Sodium, S 144 135 - 145 03/30/2020 DTL mmol/L 5:05 PM WINDMILL TECHNICIAN Chloride, S 104 98 - 107 03/30/2020 DTL mmol/L 5:05 PM WINDMILL TECHNICIAN Bicarbonate, S 28 22 - 29 03/30/2020 DTL mmol/L 5:05 PM WINDMILL TECHNICIAN Anion Gap 12 7 - 15 03/30/2020 DTL 5:05 PM WINDMILL TECHNICIAN BUN (Blood Urea 7 6 - 21 03/30/2020 DTL Nitrogen), S mg/dL 5:05 PM WINDMILL TECHNICIAN Creatinine 0.99 0.59 - 03/30/2020 DTL 1.04 mg/dL 5:05 PM WINDMILL TECHNICIAN eGFR-Non 61 >=60 03/30/2020 DTL Black/ mL/min/BSA 5:05 PM WINDMILL TECHNICIAN Peruvian Comment: ----ADDITIONAL INFORMATION---- Estimated GFR calculated using the 2009 CKD_EPI creatinine equation. eGFR-Black/ 70 >=60 mL/min/BSA 2020 5:05 PM WINDMILL TECHNICIAN DTL Comment: ----ADDITIONAL INFORMATION---- Estimated GFR calculated using the 2009 CKD_EPI creatinine equation. Calcium, Total, S 9.1 8.8 - 10.2 mg/dL 03/30/2020 5:05 PM WINDMILL TECHNICIAN DTL Glucose, S 148 (H) 70 - 140 mg/dL 03/30/2020 5:05 PM WINDMILL TECHNICIAN D TL Specimen Anatomical Collection Method Collection Time Receive d Time (Source) Location / / Volume Laterality Blood (Blood, 03/30/2020 3:11 PM 03/30/19 21 3:34 Venous) WINDMILL TECHNICIAN PM WINDMILL TECHNICIAN Zac Gonzalez M.D. LAB BLOOD ADD-ON Performing Organization Address City/State/ZIP Code Phon e Number [facility] - [address] [place], [place] [address] [facility] [place] [address] [facility] [address] documented in this encounter Visit Diagnoses Diagnosis Mass Kidney documented in this encounter Additional Health Concerns Assessment Noted Time PHQ-9 Depression Total Score: 11 05/04/2013 4:05 PM CS T documented as of this encounter Care Teams Headend Technician Relationship Specialty Start Date End Date Elsewhere, Pcp PCP - General Internal Medicine 07/27/18 documented as of this encounter
--- OUTSIDE RECORDS SUMMARY | 2021-12-27 05:21 | XMS_ITS | Encounter Summary ---
:1955 Author Organization [facility] Address [address] [place] [address] Care Team Providers Name Role Phone Elsewhere, Pcp Primary Care Provider Unavailable Reason for Referral MRI/CAT/PET Scan (Routine) - Closed Specialty Diagnoses / Procedures Referred By Contact Refer red To Contact Radiology Diagnoses Flutter Atrial (HCC) Atrial Fibrillation Paroxysmal (HCC) Tucker Rutherford P.A.-C. [facility] Procedures CT Cardiac Angiogram Pulmonary Veins with IV [address] [place] [phone] Referral ID Status Reason Start Date Expiration Date Visits Requ ested Visits Authorized [id number] Closed 04/21/2019 04/20/2020 1 1 Reason for Visit MRI/CAT/PET Scan (Routine) - Closed Specialty Diagnoses / Procedures Referred By Contact Refer red To Contact Radiology Diagnoses Flutter Atrial (HCC) Atrial Fibrillation Paroxysmal (HCC) Tucker Rutherford P.A.-C. [facility] Procedures CT Cardiac Angiogram Pulmonary Veins with IV [address] [place] [phone] Referral ID Status Reason Start Date Expiration Date Visits Requ ested Visits Authorized [id number] Closed 04/21/2019 04/20/2020 1 1 Encounter Details Date Type Department Care Team Description 08/18/2019 Hospital Encounter Department of MichellenTucker Flut ter Atrial (HCC); Radiology, Garett Torres Atrial Fibrillation Paroxysmal (HCC); Building, in [address] [place] [address] Atrial Fibrillation Paroxysmal (HCC) [facility] [phone] 200 [facility] [phone] [place], [place] (Work) [phone] Social History Tobacco Use Types Packs/Day Years [...] or relatives? How often do you attend episcopalian or Never 2018 evangelical services? Do you belong to any clubs or No 02/26/2019 organizations such as episcopalian groups, unions, fraternal or athletic groups, or [...] the highest level of school you have Some college, n o degree 02/26/2019 completed or the highest degree you have received? Sex Assigned at Date Recorded Not on file documented as of this encounter Last Filed Vital Signs Vital Sign Reading Time Taken Comments Blood Pressure - - Pulse - - Temperature - - Respiratory Rate - - Oxygen Saturation - - Inhaled Oxygen Concentration - - Weight 90.9 kg (200 lb 6.4 oz) 08/18/2019 9:11 AM CDT Height 165.1 cm (5' 5) 08/18/2019 9:09 AM CDT Body Mass Index 33.35 08/18/2019 9:09 AM CDT documented in this encounter Medications at Time of Discharge Medication Sig Dispensed Refills Start Date End Date albuterol (PROAIR HFA) Inhale 1-2 puffs every 1 Inhaler 11 0 07/06/2018 90 mcg/actuation 4 (four) hours as inhaler needed for shortness of breath. alum-mag Take 5-10 mL by mouth 0 hydroxide-simeth every 6 (six) hours as (MAALOX) 200-200-20 needed for indigestion. mg/5 mL suspension clotrimazole-betametha Apply 1 application 0 sone (LOTRISONE) topically 2 (two) times 1-0.05 % cream a day. famotidine (PEPCID) 10 Take 20 mg by mouth. 0 mg tablet levothyroxine Take 25 mcg by mouth 0 (SYNTHROID, every morning before LEVOTHROID) 25 mcg breakfast. tablet methyl Apply 1 application 0 salicylate-menthol topically every 2 (two) (BENGAY) ointment hours as needed for muscle/joint pain. metoprolol tartrate Take 1 tablet (50 mg 0 2019 (LOPRESSOR) 50 mg total) by mouth 2 (two) tablet times a day. For heart rate control. nitroglycerin Place 0.4 mg under the 0 (NITROSTAT) 0.4 mg SL tongue every 5 (five) tablet minutes as needed for chest pain. rizatriptan (MAXALT) 5 Take 1 tablet (5 mg 9 tablet 0 06/22 mg tablet total) by mouth as needed for migraine. SENNOSIDES ORAL Take 1 tablet by mouth 0 as needed. simvastatin (ZOCOR) 20 Take 1 tablet (20 mg 0 mg tablet total) by mouth at bedtime. Hyperlipidemia Systane, propylene daily. 0 03/24/2019 glycol, 0.4-0.3 % ophthalmic solution polyethylene glycol Take 1 packet (17 g 60 packet 11 019 12/11/2019 (MIRALAX) 17 gram total) by mouth 2 (two) powder packet times a day. Dissolve each 17 g dose in 240 mLs (8 ounces) of beverage. acetaminophen Take 2 tablets (1,000 0 04/21/2019 08/19/2019 (TYLENOL) 500 mg mg total) by mouth tablet every 6 (six) hours as needed for pain. aspirin [address] Take 81 mg by mouth 0 08/19/2019 tablet daily. DULoxetine (CYMBALTA) Take 1 capsule (30 mg 0 08/19/[address] capsule total) by mouth 2 (two) times a day. For Fibromyaligia ferrous sulfate 325 mg Take 1 tablet (65 mg of 0 07/06/2018 03/30/2020 (65 mg iron) DR tablet iron total) by mouth daily. For anemia fluticasone furoate Inhale 1 puff daily. 0 201808/19/2019 (ARNUITY ELLIPTA) 100 Asthma mcg/actuation diskus inhaler furosemide (LASIX) 20 Take 20 mg by mouth 0 03/30/2020 mg tablet daily. metFORMIN (GLUCOPHAGE) Take 1 tablet (500 mg 0 08/19/2019 500 mg tablet total) by mouth 2 (two) times a day with meals. For Diabetes Mellitus topiramate (TOPAMAX) Take 1 tablet (25 mg 0 07/0608/19/2019 25 mg tablet total) by mouth 2 (two) times a day. For headaches. warfarin (COUMADIN) 5 Take 1 tablet (5 mg 30 tablet 0 04/2108/19/2019 mg tablet total) by mouth daily. INR goal 2.5-3.5(atrial thrombus). Take 5mg Sun,Tu,Fri,Fri,Sat warfarin (COUMADIN) 6 Take 1 tablet (6 mg 0 04/2108/19/2019 mg tablet total) by mouth daily. Take 6mg on Mon/Thurs documented as of this encounter Nursing Notes Yolanda Dumas REdilmaN. - 08/18/2019 9:00 AM CDT A review of the patients current medications was completed under the context of radiology care priorto contrast/medication administration. documented in this encounter Plan of Treatment Scheduled Orders Name Type Priority Associated Diagnoses Order S chedule Creatinine, POCT Point of Care STAT STAT for 1 Occurrences Testing-Docked starting 07/23 Device until 0 documented as of this encounter Procedures Procedure Name Priority Date/Time Associated Comments Diagnosis CT CARDIAC RAD - Routine 08/18/2019 10:07 Flutter Atrial Results for this ANGIOGRAM (most inpatients AM CDT (HCC) procedure are in PULMONARY VEINS and all Atrial Fibrillation the r esults WITH IV CONTRAST outpatients) Paroxysmal (HCC) section . CREATININE, POCT, Routine 08/18/2019 9:20 Results for this B AM CDT procedure are i n the results section. CREATININE, POCT, Routine 08/18/2019 9:20 Results for this B AM CDT procedure are i n the results section. documented in this encounter Results CT Cardiac Angiogram Pulmonary Veins with IV (08/18/2019 10:07 AM CDT) Anatomical Region Laterality Modality Cardiac, Cardiovascular RST LOS, N/A Compute d Tomography, Computed Thoracic ARZ LOS, Cardiovascular FLA Godwin ography LOS Specimen (Source) Anatomical Collection Method Collection Time Re ceived Time Location / / Volume Laterality 08/18/2019 10:05 AM CDT Impressions 08/18/2019 10:34 AM CDT 1. Two right and three left pulmonary veins are widely patent without stenosis. 2. No intracardiac mass or thrombus, spe cifically, no left atrial appendage thrombus. 3. New pulmonary nodule, see findings fo r recommended surveillance. Narrative 08/18/2019 10:34 AM CDT EXAM: ??CT CARDIAC ANGIOGRAM PULMONARY VEINS WITH IV CONTRAST COMPARISON: ??CT CARDIAC ANGIOGRAM W PUL MONARY VEINS W IV CONTRAST 04-16-2019 ? CARDIOVASCULAR FINDINGS: ?? PULMONARY VEINS: Two right and three left pulmonary veins are widely patent without stenosis. No intracardiac mass or thrombus. Qualit atively biatrial enlargement. No pericardial effusion. Possible patent fo ramen ovale. ADDITIONAL FINDINGS: ? An irregular, semi-solid 7 x 6 mm nodule in the left upper lobe (series 5, images 146) is new compared to the prior study. The previously described clustered nodularity of the posterior ba regina left lower lobe is not present on the current study. Bibasilar subsegmenta l dependent atelectasis. Moderate esophageal hiatal hernia. Hyper trophic degenerative changes of the thoracic spine. Cholecystectomy clips se en on finished hardware erector images. GUIDELINES FOR FOLLOW-UP of newly detect ed solid nodules incidentally detected on CT in persons 35 years or older. (201 7 revision) LOW-RISK PATIENT (Minimal or absent hist ory of smoking or of other known risk factors) For single nodule, size: <6mm ??No routine follow-up required 6-8mm CT at 6-12 months; then consider C T at 18-24 months, if no change >8mm ??Consider Pulmonary Medicine consu ltation for management, or follow-up with CT at 3 months For multiple nodules, size of largest no dule: <6mm ??No routine follow-up required 6mm or > CT at 3-6 months, then consider CT at 18-24 months HIGH-RISK PATIENT (History of smoking or of other known risk factors) For single nodule, size: <6mm ??Optional CT at 12 months*; If unc hanged, no further follow-up required 6-8mm CT at 6-12 months; then CT at 18-2 4 months, if no change >8mm Consider Pulmonary Medicine consult ation for management, or follow-up with CT at 3 months For multiple nodules, size of largest no dule: <6mm Optional CT at 12 months*; If uncha nged, no further follow-up required 6mm or > CT at 3-6 months, then at 18-24 months (Nodule size is the average of length an d width.) *Nodules <6mm do not require routine fol low-up, but certain patients at high risk with suspicious nodule morphology, upper lobe location, or both may warrant 12-month follow-up. ?? Guidelines do not apply to lung cancer s creening, patients with immunosuppression, or patients with a kn own primary cancer. Procedure Note Elvis Fontenot M.D. - 08/18/2019For matting of this note might be different from the original. EXAM: CT CARDIAC ANGIOGRAM PULMONARY VEI NS WITH IV CONTRAST COMPARISON: CT CARDIAC ANGIOGRAM W PULMO NARY VEINS W IV CONTRAST 04-16-2019 CARDIOVASCULAR FINDINGS: PULMONARY VEINS: Two right and three left pulmonary veins are widely patent without stenosis. No intracardiac mass or thrombus. Qualit atively biatrial enlargement. No pericardial effusion. Possible patent fo ramen ovale. ADDITIONAL FINDINGS: An irregular, semi-solid 7 x 6 mm nodule in the left upper lobe (series 5, images 146) is new compared to the prior study. The previously described clustered nodularity of the posterior ba regina left lower lobe is not present on the current study. Bibasilar subsegmenta l dependent atelectasis. Moderate esophageal hiatal hernia. Hyper trophic degenerative changes of the thoracic spine. Cholecystectomy clips se en on finished hardware erector images. GUIDELINES FOR FOLLOW-UP of newly detect ed solid nodules incidentally detected on CT in persons 35 years or older. (201 7 revision) LOW-RISK PATIENT (Minimal or absent hist ory of smoking or of other known risk factors) For single nodule, size: <6mm No routine follow-up required 6-8mm CT at 6-12 months; then consider C T at 18-24 months, if no change >8mm Consider Pulmonary Medicine consult ation for management, or follow-up with CT at 3 months For multiple nodules, size of largest no dule: <6mm No routine follow-up required 6mm or > CT at 3-6 months, then consider CT at 18-24 months HIGH-RISK PATIENT (History of smoking or of other known risk factors) For single nodule, size: <6mm Optional CT at 12 months*; If uncha nged, no further follow-up required 6-8mm CT at 6-12 months; then CT at 18-2 4 months, if no change >8mm Consider Pulmonary Medicine consult ation for management, or follow-up with CT at 3 months For multiple nodules, size of largest no dule: <6mm Optional CT at 12 months*; If uncha nged, no further follow-up required 6mm or > CT at 3-6 months, then at 18-24 months (Nodule size is the average of length an d width.) *Nodules <6mm do not require routine fol low-up, but certain patients at high risk with suspicious nodule morphology, upper lobe location, or both may warrant 12-month follow-up. Guidelines do not apply to lung cancer s creening, patients with immunosuppression, or patients with a kn own primary cancer. IMPRESSION: 1. Two right and three left pulmonary ve ins are widely patent without stenosis. 2. No intracardiac mass or thrombus, spe cifically, no left atrial appendage thrombus. 3. New pulmonary nodule, see findings fo r recommended surveillance. Tucker Rutherford P.A.-C. [facility] CT PROCEDURES Creatinine, POCT (08/18/2019 9:20 AM CDT) athologist Signature Creatinine, 0.8 0.6 - 1.0 08/18/2019 PCDT POCT, B mg/dL 9:25 AM CDT Comment: ----ADDITIONAL INFORMATION---- Performed at the Point of Care Specimen Anatomical Collection Method Collection Time Receive d Time (Source) Location / / Volume Laterality Blood 08/18/2019 9:20 AM 0 9:25 CDT AM CDT Unknown Provider LAB POCT ORDERABLES - DEVICE Performing Organization Address City/State/ZIP Code Phon e Number POC AMALIA PERFORMING [address] [place] [address] LABS PCDT [facility] [place] [address] [place] [facility] [address] Creatinine, POCT (08/18/2019 9:20 AM CDT) P athologist Signature eGFR-Black/Afri >90 >=60 08/18/2019 PCMO can [place], mL/min/BSA 9:25 AM CDT POCT Comment: ----ADDITIONAL INFORMATION---- Estimated GFR calculated using the 2009 CKD_EPI creatinine equation. eGFR Non-Black/, 79 >=60 mL/min/BSA 08/18/2019 9:25 AM CDT PCMO POCT Comment: ----ADDITIONAL INFORMATION---- Estimated GFR calculated using the 2009 CKD_EPI creatinine equation. Specimen Anatomical Collection Method Collection Time Receive d Time (Source) Location / / Volume Laterality Blood 08/18/2019 9:20 AM 0 9:25 CDT AM CDT Unknown Provider LAB POCT ORDERABLES - DEVICE Performing Organization Address City/State/ZIP Code Phon e Number POC [facility] [address] [place] [address] OUTPATIENT LABS PCMO [facility] [place] [address] [place] [facility] [address] documented in this encounter Visit Diagnoses Diagnosis Flutter Atrial (HCC) Atrial Fibrillation Paroxysmal (HCC) documented in this encounter Administered Medications Inactive Administered Medications - up to 3 most recent administrations Medication Order MAR Action Action Date Dose Rate Site iohexoL 350 mg iodine/mL solution Given 08/18/2019 9:52 AM CDT 1 40 mL 1-200 mL (OMNIPAQUE) 1-200 mL, intravenous, Once in imaging, contrast, Starting on Fri08/18/19 at 0909, For 1 dose, Imaging Protocol Orders, Dose per Radiant Medication Guidelines sodium chloride (PF) 0.9 % injection 1-1 00 mL Given 08/18/2019 9:52 AM CDT 10 mL 1-100 mL, intravenous, Once, On Fri08/18/19 at 0915, For 1 dose, Imaging Protocol Orders documented in this encounter Additional Health Concerns Assessment Noted Time PHQ-9 Depression Total Score: 11 05/04/2013 4:05 PM CS T documented as of this encounter Care Teams Noc Engineer Relationship Specialty Start Date End Date Elsewhere, Pcp PCP - General Internal Medicine 07/27/18 documented as of this encounter
--- OUTSIDE RECORDS SUMMARY | 2021-12-27 05:21 | XMS_ITS | Encounter Summary ---
:1955 Author Organization [facility] Address [address] [place] [address] Care Team Providers Name Role Phone Elsewhere, Pcp Primary Care Provider Unavailable Reason for Referral Outpatient (Routine) - Closed Specialty Diagnoses / Procedures Referred By Contact Refer red To Contact Diagnoses Flutter Atrial (HCC) Atrial Fibrillation Paroxysmal (HCC) Tucker Rutherford P.A.-C. [facility] Procedures ECG Heart rhythm monitor (Holter) [address] [place] [address] Referral ID Status Reason Start Date Expiration Date Visits Requ ested Visits Authorized [id number] Closed 04/21/2019 04/20/2020 1 1 Reason for Visit Outpatient (Routine) - Closed Specialty Diagnoses / Procedures Referred By Contact Refer red To Contact Diagnoses Flutter Atrial (HCC) Atrial Fibrillation Paroxysmal (HCC) Tucker Rutherford P.A.-C. [facility] Procedures ECG Heart rhythm monitor (Holter) [address] [place] [address] Referral ID Status Reason Start Date Expiration Date Visits Requ ested Visits Authorized [id number] Closed 04/21/2019 04/20/2020 1 1 Encounter Details Date Type Department Care Team Description 08/18/2019 Hospital Department of [place], Tucker Flutter Atria l (HCC); Encounter Cardiovascular Brian Caballero Atrial Fibrillation Paroxysmal (HCC) Diseases in [place], [facility] [address] [place], [place] [address] [address] [place], [place] [phone] (Work) [phone] Social History Tobacco Use Types Packs/Day Years [...] or relatives? How often do you attend nondenominational or Never 2018 episcopalian services? Do you belong to any clubs or No 02/26/2019 organizations such as nondenominational groups, unions, fraternal or athletic groups, or [...] daily. INR goal 2.5-3.5(atrial thrombus). Take 5mg Sun,Tues,Wed,Fri,Sat warfarin (COUMADIN) 6 Take 1 tablet (6 mg 0 04/2108/19/2019 mg tablet total) by mouth daily. Take 6mg on Mon/Thurs documented as of this encounter Plan of Treatment Not on filedocumented as of this encounter Procedures Procedure Name Priority Date/Time Associated Diagnosis Comme nts HOLTER MONITOR - IN Routine 08/18/2019 10:48 Flutter Atr ial (HCC) Results for this [facility] HAND AM CDT Atrial Fibrillation proced ure are in Paroxysmal (HCC) the results section. documented in this encounter Results HOLTER MONITOR - IN CLINIC ST[facility] HAND (08/18/2019 10:48 AM CDT) [facility] gist Method Time Signature SVE Max Per HOLTER Hour Time SENTINEL SVE Max Per 2 count HOLTER Hour SENTINEL VE Total Beats 1 count HOLTER SENTINEL VE Percent 0 percent HOLTER Beats SENTINEL Mean Heart 66 bpm HOLTER Rate SENTINEL VT Runs 0 count HOLTER SENTINEL SVE Total 5 count HOLTER Beats SENTINEL Max Heart Rate 83 bpm HOLTER SENTINEL AF Count 0 count HOLTER SENTINEL Min Heart Rate HOLTER Time SENTINEL Recording Date HOLTER SENTINEL Tachycardia 0 count HOLTER Runs SENTINEL Holter Pauses 0 count HOLTER SENTINEL SVT Runs 0 count HOLTER SENTINEL Bradycardia 0 count HOLTER Runs SENTINEL Analysis Date 20,200,529 HOLTER SENTINEL Min Heart Rate 54 bpm HOLTER SENTINEL VE Max Per HOLTER Hour Time SENTINEL SVE Percent 0 percent HOLTER Beats SENTINEL VE Max Per 1 count HOLTER Hour SENTINEL Max Heart Rate [id number] HOLTER Time SENTINEL Specimen (Source) Anatomical Collection Method Collection Time Re ceived Time Location / / Volume Laterality 08/18/2019 10:49 AM CDT Narrative This result has an attachment that is no t available. Tucker Rutherford P.A.-C. [facility]ED[facility] ES Performing Organization Address City/State/ZIP Code Phon e Number HOLTER SENTINEL HOLTER SENTINEL NA documented in this encounter Visit Diagnoses Diagnosis Flutter Atrial (HCC) Atrial Fibrillation Paroxysmal (HCC) documented in this encounter Additional Health Concerns Assessment Noted Time PHQ-9 Depression Total Score: 11 05/04/2013 4:05 PM CS T documented as of this encounter Care Teams Geophysical Laboratory Chief Relationship Specialty Start Date End Date Elsewhere, Pcp PCP - General Internal Medicine 07/27/18 documented as of this encounter
--- OUTSIDE RECORDS SUMMARY | 2021-12-27 05:21 | XMS_ITS | Encounter Summary ---
:1955 Author Organization [facility] Address [address] [place] [address] Care Team Providers Name Role Phone Elsewhere, Pcp Primary Care Provider Unavailable Encounter Details Date Type Department Care Team Description 01/04/2020 Hospital Encounter Department of Zac Gonzalez Renal Cell Radiology, [place] Bess Perez [facility], in [place], [place] [address] [place] [phone] Social History Tobacco Use Types Packs/Day Years [...] or relatives? How often do you attend moravian or Never 2018 yazidi services? Do you belong to any clubs or No 02/26/2019 organizations such as moravian groups, unions, fraternal or athletic groups, or [...] (six) hours as (MAALOX) 200-200-20 needed for mg/5 mL suspension indigestion. amLODIPine (NORVASC) 5 Take 5 mg by mouth 0 mg tablet daily. calcium carbonate Chew 215 mg of calcium 0 (Antacid Calcium) 500 daily as needed for mg (215 mg calcium) indigestion or chewable tablet heartburn. clotrimazole-betamethas Apply 1 application 0 one (LOTRISONE) 1-0.05 topically 2 (two) % cream times a day. diphenhydrAMINE Take 25 mg by mouth as 0 (BENADRYL) 25 mg needed. capsule famotidine (PEPCID) 10 Take 20 mg by mouth. 0 mg tablet fluticasone Inhale 1 puff daily. 0 furoate-vilanteroL (BREO ELLIPTA DISKUS) 200-25 mcg/act inhaler furosemide (LASIX) 20 Take 20 mg by mouth. 0 10/23 mg tablet guaifenesin (DIABETIC Take 5-10 mL by [...] 1 application 0 salicylate-menthol topically every 2 (BENGAY) ointment (two) hours as needed for muscle/joint pain. methyl Apply topically. 0 08/30/2019 salicylate-menthol (ICY HOT) 30-10 % cream metoprolol tartrate Take 1 tablet (50 mg 0 2019 (LOPRESSOR) 50 mg total) by mouth 2 tablet (two) times a day. For heart rate control. nitroglycerin Place 0.4 mg under the 0 (NITROSTAT) 0.4 mg SL tongue every 5 (five) tablet minutes as needed for chest pain. omeprazole (PriLOSEC) Take 40 mg by mouth [address] capsule every morning before breakfast. potassium chloride Take 20 mEq by mouth 0 (KLOR-CON M/KDUR) 20 daily. mEq ER tablet rizatriptan (MAXALT) 5 Take 1 tablet (5 mg 9 tablet 0 06/22 mg tablet total) by mouth as needed for migraine. rizatriptan (MAXALT) 5 Take 1 tablet by mouth 0 0 08/31/2019 mg tablet one time if needed for Migraine. May repeat every 2 hours for max dose of 30mg/24hours. sennosides (SENOKOT) Take 8.6 mg by mouth. 0 05/2019 8.6 mg tablet SENNOSIDES ORAL Take 1 tablet by mouth 0 as needed. simvastatin (ZOCOR) 20 Take 1 tablet (20 mg 0 mg tablet total) by mouth at bedtime. Hyperlipidemia Systane, propylene daily. 0 03/24/2019 glycol, 0.4-0.3 % ophthalmic solution topiramate (TOPAMAX) 25 Take 25 mg by mouth 0 mg tablet daily. warfarin (COUMADIN) 2 Take 2 mg by mouth as 0 mg tablet directed. Take as directed per After Visit Summary. Takes 3 tabs on Friday and Friday, takes 2.5 tabs all other days of the week amLODIPine (NORVASC) 5 Take 5 mg by mouth. 0 10/2303/30/2020 mg tablet DULoxetine (CYMBALTA) Take 30 mg by mouth at 0 03/30/[address] capsule bedtime. ferrous sulfate 325 mg Take 1 tablet (65 mg 0 03/30/2020 (65 mg iron) DR tablet of iron total) by mouth daily. For anemia furosemide (LASIX) 20 Take 20 mg by mouth 0 03/30/2020 mg tablet daily. metoprolol tartrate Take 50 mg by mouth. 0 201903/30/2020 (LOPRESSOR) 50 mg tablet simvastatin (ZOCOR) 20 Take 20 mg by mouth. 0 03/30/2020 mg tablet documented as of this encounter Plan of Treatment Not on filedocumented as of this encounter Procedures Procedure Name Priority Date/Time Associated Comments Diagnosis DX CHEST AP OR PA RAD - Routine 01/04/2020 11:52 Carcinoma Renal Re sults for this AND LATERAL 2 (most inpatients AM CDT Cell Left (HCC) procedu re are in VIEWS and all the results outpatients) section. documented in this encounter Results DX Chest AP or PA and Lateral 2 Views (01/04/2020 11:52 AM CDT) Anatomical Region Laterality Modality Chest, Thoracic RST LOS, Thoracic ARZ LOS, Thoracic N/A Digital Radiography FLA LOS Specimen (Source) Anatomical Collection Method Collection Time Re ceived Time Location / / Volume Laterality 01/04/2020 12:01 PM CDT Impressions 01/04/2020 12:06 PM CDT Comparison with chest radiograph from 04/20/2019. Deeper inspiration with decreased size of the c ardiac silhouette and central pulmonary vasculature. No pulmonary parenchymal co nsolidation, pleural effusion, or pneumothorax. Left upper lobe pulmonary nodule noted on 08/18/[address] is not well assessed by radiograph, and wou ld be better followed with dedicated CT. Small gastroesophageal hiatal hernia. Ri ght upper quadrant abdominal surgical clips. ??Compression of a midthoracic ve rtebral body, which appears increased from prior comparison studies. Mild thor acic curvature. Narrative 01/04/2020 12:06 PM CDT EXAM: ??DX CHEST AP OR PA AND LATERAL 2 VIEWS Procedure Note Glenda Tucker M.D. - 01/04/2020Format ting of this note might be different from the original. EXAM: DX CHEST AP OR PA AND LATERAL 2 EWS IMPRESSION: Comparison with chest radiograph from . Deeper inspiration with decreased size of the c ardiac silhouette and central pulmonary vasculature. No pulmonary parenchymal co nsolidation, pleural effusion, or pneumothorax. Left upper lobe pulmonary nodule noted on 08/18/[address] is not well assessed by radiograph, and wou ld be better followed with dedicated CT. Small gastroesophageal hiatal hernia. Ri ght upper quadrant abdominal surgical clips. Compression of a midthoracic vert ebral body, which appears increased from prior comparison studies. Mild thor acic curvature. 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
--- OUTSIDE RECORDS SUMMARY | 2021-12-27 05:21 | XMS_ITS | Encounter Summary ---
:1955 Author Organization [facility] Address [address] [place] [address] Care Team Providers Name Role Phone Elsewhere, Pcp Primary Care Provider Unavailable Encounter Details Date Type Department Care Team Description 12/30/2019 Clinical Communication Department of Urology Zac Gonzalez in [place] [address] [place] [address] Social History Tobacco Use Types Packs/Day Years [...] do you attend congregational or Never 2018 jewish services? Do you belong to any clubs or No 02/26/2019 organizations such as congregational groups, unions, fraternal or athletic groups, or [...] on filedocumented as of this encounter Results (ABNORMAL) Urinalysis with Microscopic: Urine, Midstream (01/04/2020 12:26 PM CDT) [facility] Method Time Signature Source Midstream 01/04/2020 FR[place] 12:26 PM CDT Appearance Normal Normal 01/04/2020 FR[place] 1:38 PM CDT Osmolality, U 483 150 - 1150 01/04/2020 FR[place] mOsm/kg 1:24 PM CDT pH, U 5.4 4.5 - 8.0 01/04/2020 FR[place]Y 1:24 PM CDT Comment: ----ADDITIONAL INFORMATION---- This test was developed and its performa nce characteristics determined by [facility] in a manner co nsistent with CLIA requirements. This test has not bee n cleared or approved by the U.S. Food and Drug Admin istration. Glucose 10 0 - 15 mg/dL 01/04/2020 1:38 PM CDT [place] Protein, U 22 <26 mg/dL 01/04/2020 1:38 PM CDT FR[place]Y Comment: ----ADDITIONAL INFORMATION---- On 09/17/2016 the total protein assay me thod changed resulting in approximately a 15% increase in prote in values. Protein/Osmolality 0.46 (H) <0.42 Ratio 01/04/2020 1:38 PM CDT [place] Comment: ----ADDITIONAL INFORMATION---- On 09/17/2016 the total protein assay me thod changed resulting in approximately a 15% increase in prote in values. Predicted 24 Hr Protein 328 mg/24 h 01/04/2020 1:38 PM CDT FREDY Predicted Range 81-1326 mg/24 h 01/04/2020 1:38 PM CDT R ALFA Hemoglobin, QL Negative Negative 01/04/2020 1:31 PM CDT RE NA Specimen Anatomical Collection Method Collection Time Receive d Time (Source) Location / / Volume Laterality Urine (Urine, 01/04/2020 12:26 01/04/2020 Midstream) PM CDT 12:26 PM CDT Zac Gonzalez M.D. LAB URINE ORDERABLES Performing Organization Address City/State/ZIP Code Phon e Number [facility] - [address] [place], [place] [address] [facility] [place] [address] [facility] [address] DX Chest AP or PA and Lateral [...] comparison studies. Mild thor acic curvature. Zac Gonzalez M.D. IMG DIAGNOSTIC IMAGING PROCE DURES (ABNORMAL) Alkaline Phosphatase (01/04/2020 10:58 AM CDT) P athologist Signature Alkaline 160 (H) 35 - 104 01/04/2020 DTL Phosphatase, S U/L 12:58 PM CDT Specimen Anatomical Collection Method Collection Time Receive d Time (Source) Location / / Volume Laterality Blood (Blood, 01/04/2020 10:58 01/04/2020 Venous) AM CDT 11:38 AM CDT Zac Gonzalez M.D. LAB BLOOD ADD-ON Performing Organization Address City/State/ZIP Code Phon e Number [facility] - [address] [place], [place] [address] [place] [address] (ABNORMAL) ALT (Alanine Aminotransferase) (01/04/2020 10:58 AM CDT) [facility] Method Time Signature Alanine 56 (H) 7 - 45 01/04/2020 DTL Aminotransferase U/L 12:58 PM CDT (ALT), S Specimen Anatomical Collection Method Collection Time Receive d Time (Source) Location / / Volume Laterality Blood (Blood, 01/04/2020 10:58 01/04/2020 Venous) AM CDT 11:38 AM CDT Zac Gonzalez M.D. LAB BLOOD ADD-ON Performing Organization Address City/[facility]/ZIP Code Phon e Number [facility] - [address] AST (Aspartate Aminotransferase) (01/04/2020 10:58 AM CDT) [facility] Method Time Signature Aspartate 33 8 - 43 01/04/2020 DTL Aminotransferase U/L 12:58 PM CDT (AST), S Specimen Anatomical Collection Method Collection Time Receive d Time (Source) Location / / Volume Laterality Blood (Blood, 01/04/2020 10:58 01/04/2020 Venous) AM CDT 11:38 AM CDT Zac Gonzalez M.D. LAB BLOOD ADD-ON Performing Organization Address City/State/ZIP Code Phon e Number [facility] - [address] [place], [place] [address] Calcium, Total (01/04/2020 10:58 AM CDT) P athologist Signature Calcium, Total, 9.0 8.8 - 10.2 01/04/2020 DTL S mg/dL 12:58 PM CDT Specimen Anatomical Collection Method Collection Time Receive d Time (Source) Location / / Volume Laterality Blood (Blood, 01/04/2020 10:58 01/04/2020 Venous) AM CDT 11:38 AM CDT Zac Gonzalez M.D. LAB BLOOD ADD-ON Performing Organization Address City/State/ZIP Code Phon e Number [facility] - [address] [place], [place] [address] [facility] [place] [place] [address] [facility] [address] [facility] (ABNORMAL) CBC with Differential, Blood (01/04/2020 10:58 AM CDT) [facility] Method Time Signature Hemoglobin 13.5 11.6 - 01/04/2020 DTL 15.0 g/dL 11:33 AM CDT Hematocrit 43.1 35.5 - 01/04/2020 DTL 44.9 % 11:33 AM CDT Erythrocytes 4.64 3.92 - 01/04/2020 DTL 5.13 11:33 AM CDT x10(12)/L MCV 92.9 78.2 - 01/04/2020 DTL 97.9 fL 11:33 AM CDT RBC Distrib Width 12.1 (L) 12.2 - 01/04/2020 DTL 16.1 % 11:33 AM CDT Platelet Count 442 (H) 157 - 371 01/04/2020 DTL x10(9)/L 11:33 AM CDT Leukocytes 9.2 3.4 - 9.6 01/04/2020 DTL x10(9)/L 11:33 AM CDT Neutrophils 5.13 1.56 - 01/04/2020 DTL 6.45 11:33 AM CDT x10(9)/L Lymphocytes 2.88 0.95 - 01/04/2020 DTL 3.07 11:33 AM CDT x10(9)/L Monocytes 0.71 0.26 - 01/04/2020 DTL 0.81 11:33 AM CDT x10(9)/L Eosinophils 0.40 0.03 - 01/04/2020 DTL 0.48 11:33 AM CDT x10(9)/L Basophils 0.11 (H) 0.01 - 01/04/2020 DTL 0.08 11:33 AM CDT x10(9)/L Specimen Anatomical Collection Method Collection Time Receive d Time (Source) Location / / Volume Laterality Blood (Blood, 01/04/2020 10:58 01/04/2020 Venous) AM CDT 11:24 AM CDT Zac Gonzalez M.D. LAB BLOOD ADD-ON Performing Organization Address City/State/ZIP Code Phon e Number [facility] - [address] [place], [place] [address] [place] [address] Creatinine with Estimated GFR (01/04/2020 10:58 AM CDT) athologist Signature Creatinine 0.87 0.59 - 01/04/2020 DTL 1.04 mg/dL 12:58 PM CDT eGFR-Non 72 >=60 01/04/2020 DTL Black/ mL/min/BSA 12:58 PM CDT [place] Comment: ----ADDITIONAL INFORMATION---- Estimated GFR calculated using the 2009 CKD_EPI creatinine equation. eGFR-Black/ 83 >=60 mL/min/BSA 2019 12:58 PM CDT DTL Comment: ----ADDITIONAL INFORMATION---- Estimated GFR calculated using the 2009 CKD_EPI creatinine equation. Specimen Anatomical Collection Method Collection Time Receive d Time (Source) Location / / Volume Laterality Blood (Blood, 01/04/2020 10:58 01/04/2020 Venous) AM CDT 11:38 AM CDT Zac Gonzalez M.D. LAB BLOOD ADD-ON Performing Organization Address City/[facility]/ZIP Code Phon e Number [facility] - [address] [place], [place] [address] [facility] [place], [place] [id number] [place] [address] [facility] BUN (Blood Urea Nitrogen) (01/04/2020 10:58 AM CDT) athologist Signature BUN (Blood Urea 9 6 - 21 01/04/2020 DTL Nitrogen), S mg/dL 12:58 PM CDT Specimen Anatomical Collection Method Collection Time Receive d Time (Source) Location / / Volume Laterality Blood (Blood, 01/04/2020 10:58 01/04/2020 Venous) AM CDT 11:38 AM CDT Zac Gonzalez M.D. LAB BLOOD ADD-ON Performing Organization Address City/State/ZIP Code Phon e Number [facility] - [address] [place], [place] [address] [facility] [place], [place] [id number] [place] [address] Electrolyte (Chem 4) Panel (01/04/2020 10:58 AM CDT) P athologist Signature Sodium, S 143 135 - 145 01/04/2020 DTL mmol/L 12:58 PM CDT Potassium, S 4.2 3.6 - 5.2 01/04/2020 DTL mmol/L 12:58 PM CDT Chloride, S 101 98 - 107 01/04/2020 DTL mmol/L 12:58 PM CDT Bicarbonate, S 28 22 - 29 01/04/2020 DTL mmol/L 12:58 PM CDT Anion Gap 14 7 - 15 01/04/2020 DTL 12:58 PM CDT Specimen Anatomical Collection Method Collection Time Receive d Time (Source) Location / / Volume Laterality Blood (Blood, 01/04/2020 10:58 01/04/2020 Venous) AM CDT 11:38 AM CDT Zac Gonzalez M.D. LAB BLOOD ADD-ON Performing Organization Address City/State/ZIP Code Phon e Number [facility] - [address] [place], [place] [address] [facility] [place] [address] [facility] [address] documented in this encounter Visit Diagnoses Diagnosis Carcinoma Renal Cell Left (HCC) - Primar y Carcinoma Renal Cell Left (HCC) documented in this encounter Additional Health Concerns Assessment Noted Time PHQ-9 Depression Total Score: 11 05/04/2013 4:05 PM CS T documented as of this encounter Care Teams Sales Account Associate Relationship Specialty Start Date End Date Elsewhere, Pcp PCP - General Internal Medicine 07/27/18 documented as of this encounter
--- OUTSIDE RECORDS SUMMARY | 2021-12-27 05:21 | XMS_ITS | Encounter Summary ---
:1955 Author Organization [facility] Address [address] [place] [address] Care Team Providers Name Role Phone Elsewhere, Pcp Primary Care Provider Unavailable Reason for Referral MRI/CAT/PET Scan (Routine) - Closed Specialty Diagnoses / Procedures Referred By Contact Refer red To Contact Radiology Diagnoses Nodule Pulmonary Harish Harkins M.D. [facility] Procedures CT Chest without IV Contrast [address] [place] [phone] Referral ID Status Reason Start Date Expiration Date Visits Requ ested Visits Authorized [id number] Closed 03/20/2020 03/20/2021 1 1 NG CARPENTER Reason for Visit MRI/CAT/PET Scan (Routine) - Closed Specialty Diagnoses / Procedures Referred By Contact Refer steven To Contact Radiology Diagnoses Nodule Pulmonary Harish Harkins M.D. [facility] Procedures CT Chest without IV Contrast [address] [place] [address] [phone] Referral ID Status Reason Start Date Expiration Date Visits Requ ested Visits Authorized [id number] Closed 03/20/2020 03/20/2021 1 1 Encounter Details Date Type Department Care Team Description 03/30/2020 Hospital Encounter Department of Harish Harkins Nodu le Pulmonary Radiology, Gonda M.D. Building, in [address] [place] [address] [place] [phone] [place], [place] [phone] (Work) [phone] Social History Tobacco Use Types Packs/Day Years [...] or relatives? How often do you attend adventism or Never 2018 synagogue services? Do you belong to any clubs or No 02/26/2019 organizations such as adventism groups, unions, fraternal or athletic groups, or [...] Diagnosis CT CHEST WITHOUT RAD - Routine 03/30/2020 10:26 Nodule Pulmonary Re sults for this IV CONTRAST (most inpatients AM FIXING CARPENTER procedure a re in and all the results outpatients) section. documented in this encounter Results CT Chest without IV Contrast (03/30/2020 10:26 AM FIXING CARPENTER) Anatomical Region Laterality Modality Chest, Thoracic RST LOS, Thoracic ARZ N/A Co mputed Tomography, Computed LOS, Thoracic FLA LOS Tomography Specimen (Source) Anatomical Collection Method Collection Time Re ceived Time Location / / Volume Laterality 03/30/2020 10:59 AM FIXING CARPENTER Impressions 03/30/2020 12:08 PM FIXING CARPENTER 1. Decrease in size of the left upper lobe nodule since 08/18/2019 suggesting a resolving infectious or inflammatory conrad ology such as granulomatous disease. 2. Multiple additional scattered 1-2 mm pulmonary nodules, some of which are stable since 2012 and others which are n ot well appreciated on the prior exams, possibly due to differences in technique . Follow-up recommendations are attached. Narrative 03/30/2020 12:08 PM FIXING CARPENTER EXAM: CT CHEST WITHOUT IV CONTRAST COMPARISON: Chest CT 08/18/2019, 020, and 02/05/2012. FINDINGS: The left upper lobe nodule has decreased in size today measuring 5 mm x 4 mm (series 3/ image 261) compared with 7 mm x 6 mm previously. There are multiple other scattered 1-2 mm nodules throughou t both lungs, some of which are stable since 2012 and others which are not well visualized on prior exams possibly secondary to differences in technique. F or example, 2 mm nodule in the right upper lobe (3/178) ??was also present on the 2012 CT, 2 mm nodule in the medial left upper lobe ( 3/109) which was also present on the 2012 exam, and 2 mm nodule in the and right lower lobe (3/39 1) was not ??well-visualized on the prior exams. Again seen are several areas of c lustered micronodules ??for instance in the posterior left lower lobe (3/385) an d in the anterior left upper lobe (3/171), several of these have internal calcifications suggesting granulomatous disease. Scattered calcified pulmonary g ranulomas. The remainder of the lungs are clear. No pleural effusions. No thoracic lymphadenopathy. Left atrial enlargement. Moderate esophageal hiatal hernia. No suspicious osseous lesions. Stable kiser perior endplate compression deformity of the T8 and T12 vertebral bodies. Hepatic steatosis. Cholecystectomy. 3D maximum intensity projection (MIP) im ages were created on a dependent workstation as ordered by the treating p rovider and reviewed by the radiologist to increase sensitivity for detection of pulmonary nodules. GUIDELINES FOR FOLLOW-UP of newly detect ed [...] a kn own primary cancer. Procedure Note Elaina Jacobson M.D. - 03/30/2020Form atting of this note might be different from the original. EXAM: CT CHEST WITHOUT IV CONTRAST COMPARISON: Chest CT 08/18/2019, 020, and 02/05/2012. FINDINGS: The left upper lobe nodule has decreased in size today measuring 5 mm x 4 mm (series 3/ image 261) compared with 7 mm x 6 mm previously. There are multiple other scattered 1-2 mm nodules throughou t both lungs, some of which are stable since 2012 and others which are not well visualized on prior exams possibly secondary to differences in technique. F or example, 2 mm nodule in the right upper lobe (3/178) was also present on t he 2011 CT, 2 mm nodule in the medial left upper lobe ( 3/109) which was also present on the 2012 exam, and 2 mm nodule in the and right lower lobe (3/39 1) was not well-visualized on the prior exams. Again seen are several areas of c lustered micronodules for instance in the posterior left lower lobe (3/385) an d in the anterior left upper lobe (3/171), several of these have internal calcifications suggesting granulomatous disease. Scattered calcified pulmonary g ranulomas. The remainder of the lungs are clear. No pleural effusions. No thoracic lymphadenopathy. Left atrial enlargement. Moderate esophageal hiatal hernia. No suspicious osseous lesions. Stable kiser perior endplate compression deformity of the T8 and T12 vertebral bodies. Hepatic steatosis. Cholecystectomy. 3D maximum intensity projection (MIP) im ages were created on a dependent workstation as ordered by the treating jyoti olivas and reviewed by the radiologist to increase sensitivity for detection of pulmonary nodules. GUIDELINES FOR FOLLOW-UP of newly detect ed [...] a kn own primary cancer. IMPRESSION: 1. Decrease in size of the left upper lo be nodule since 08/18/2019 suggesting a resolving infectious or inflammatory conrad ology such as granulomatous disease. 2. Multiple additional scattered 1-2 mm pulmonary nodules, some of which are stable since 2011 and others which are n ot well appreciated on the prior exams, possibly due to differences in technique . Follow-up recommendations are attached. Harish TEE CT PROCEDURES documented in this encounter Visit Diagnoses Diagnosis Nodule Pulmonary documented in this encounter Additional Health Concerns Assessment Noted Time PHQ-9 Depression Total Score: 11 05/04/2013 4:05 PM CS T documented as of this encounter Care Teams Varnishing Machine Operator Relationship Specialty Start Date End Date Elsewhere, Pcp PCP - General Internal Medicine 07/27/18 documented as of this encounter
--- OUTSIDE RECORDS SUMMARY | 2021-12-27 05:21 | XMS_ITS | Encounter Summary ---
:1955 Author Organization [facility] Address [address] [place] [address] Care Team Providers Name Role Phone Elsewhere, Pcp Primary Care Provider Unavailable Encounter Details Date Type Department Care Team Description 01/13/2020 Clinical Communication Department of Urology Zac Gonzalez in [place] M.D[address] [phone] Social History Tobacco Use Types Packs/Day Years [...] do you attend hinduism or Never 2018 mu-ism services? Do you [...] this encounter Miscellaneous Notes Telephone Encounter - Zac Gonzalez M.D. - 01/13/2020 9:12 AM CDT Reviewed. Similar to CT. No changes Telephone Encounter - Anna Ge - 01/13/2020 8:25 AM CDT Edgarina called and wanted you to know that they will be pushing Iris's MRI into [facility]'s system today. documented in this encounter Plan of Treatment Not on filedocumented as of this encounter Visit Diagnoses Not on filedocumented in this encounter Additional Health Concerns Assessment Noted Time PHQ-9 Depression Total Score: 11 05/04/2013 4:05 PM CS T documented as of this encounter Care Teams Biostatistics Professor Relationship Specialty Start Date End Date Elsewhere, Pcp PCP - General Internal Medicine 07/27/18 documented as of this encounter
--- OUTSIDE RECORDS SUMMARY | 2021-12-27 05:21 | XMS_ITS | Encounter Summary ---
:1955 Author Organization [facility] Address [address] [place] [address] Care Team Providers Name Role Phone Elsewhere, Pcp Primary Care Provider Unavailable Reason for Referral Outpatient (Routine) - Closed Specialty Diagnoses / Procedures Referred By Contact Refer red To Contact Urology Zac Kuo M.D. [facility] [address] [place] [address] Referral ID Status Reason Start Date Expiration Date Visits Requ ested Visits Authorized [id number] Closed 01/05/2020 01/04/2021 1 1 Reason for Visit Appointment Request (Routine) - Closed Specialty Diagnoses / Procedures Referred By Contact Reggie harris To Contact Urology Diagnoses Carcinoma Renal Cell Left (HCC) Kandace Mckeon D.O. [address] [place] [address] Referral ID Status Reason Start Date Expiration Date Visits Requ ested Visits Authorized [id number] Closed 12/28/2019 12/27/2020 1 1 Encounter Details Date Type Department Care Team Description 01/04/2020 Comprehensive Visit Department of Dane Kuo (Primary Dx); Urology in Zac Perez M.D. Chronic Obst ructive Pulmonary Disease Exacerbation (HCC) [place], [place] [address] [place] [phone] Social History Tobacco Use Types Packs/Day Years [...] or relatives? How often do you attend latter day or Never 2018 adventist services? Do you belong to any clubs or No 02/26/2019 organizations such as latter day groups, unions, fraternal or athletic groups, or [...] documented as of this encounter Consult Notes Zac Kuo M.D. - 01/04/2020 1:30 PM CDT SUBJECTIVE REFERRAL SOURCE The patient is being seen in consultation at the request of Kandace Mckeon D.O. 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 Metcalf is a 64 y.o. female with a history of hypertension, DM2, CHAPITO/CPAP, GERD, depression, fibromyalgia, afib/flutter s/p ablation on warfarin who underwent evaluation for abdominal pain with her PCP in early November. CT scan demonstrated an indeterminate 1 cm enhancing mass arising from the posterior left kidney, her outside reports, but unfortunately the CT scan is not available for my review. She denies any gross hematuria. She had nephrolithiasis many years ago requiring ureteroscopy. She endorses mild urinary frequency. No constitutional symptoms. PAST MEDICAL/SURGICAL HISTORY MEDICAL Past Medical History: Diagnosis Date ??? Arrhythmia ??? Arthritis Rheumatoid (HCC) ??? Asthma NOS (HCC) ??? Cataract ??? Degeneration Macular ??? Diabetes Mellitus NOS (HCC) ??? Fibromyalgia ??? Gastroesophageal Reflux Disease NOS ??? Glaucoma ??? Irritable Bowel Syndrome Without Diarrhea ??? Migraine Headache ??? Osteoporosis ??? Sleep Apnea SURGICAL Past Surgical History: Procedure Laterality Date ??? CARDIAC CATHETERIZATION N/A 04/19/2019 Procedure: Ultrasound guidance for vascular access; Surgeon: Marla Yeager M.B.BEdilmaSEdilma; Location: [facility] ??? CATH ABLATION [...] INTERVENTION N/A 04/19/2019 Procedure: Intracardiac Echocardiogram; Surgeon: Mrala Yeager M.B.B.S.; Location: [facility] ??? SECTION ??? THERAPEUTIC Appendectomy x2 Cholecystectomy TAHBSO MEDICATIONS Current Outpatient Medications: ??? acetaminophen (TYLENOL) [...] by mouth daily., Disp: , Rfl: ??? calcium carbonate (Antacid [...] needed., Disp: , Rfl: ??? DULoxetine (CYMBALTA) [address] capsule, Take 30 mg by mouth at bedtime., Disp: , Rfl: ??? famotidine (PEPCID) 10 mg tablet, Take 10 mg by mouth. , Disp: , Rfl: ??? ferrous sulfate 325 mg (65 mg iron) DR tablet, Take 1 tablet (65 mg of iron total) by mouth daily. For anemia, Disp: , Rfl: ??? flecainide (TAMBOCOR) 100 mg tablet, Take 1 tablet (100 mg total) by mouth 2 (two) times a day.,Disp: 180 tablet, Rfl: 1 ??? fluticasone furoate-vilanteroL (BREO ELLIPTA DISKUS) 200-25 mcg/act inhaler, Inhale 1 puff daily., Disp: , Rfl: ??? furosemide (LASIX) 20 mg tablet, Take 20 mg by mouth daily., Disp: , Rfl: ??? guaifenesin (DIABETIC TUSSIN [...] for muscle/joint pain., Disp: , Rfl: ??? metoprolol tartrate (LOPRESSOR) 50 mg tablet, Take 1 tablet (50 mg total) by mouth 2 (two) timesa day. For heart rate control., Disp: , Rfl: ??? nitroglycerin (NITROSTAT) 0.4 mg SL tablet, Place 0.4 mg under the tongue every 5 (five) minutesas needed for chest pain., Disp: , Rfl: ??? omeprazole (PriLOSEC) 40 [...] migraine., Disp: 9 tablet, Rfl: 0 ??? SENNOSIDES ORAL, Take 1 tablet by [...] of the week, Disp: , Rfl: ALLERGIES No Known Allergies SOCIAL HISTORY Social History Tobacco Use ??? Smoking status: Never Smoker ??? Smokeless tobacco: Never Used ??? Tobacco comment: has a roommate that smokes Substance Use Topics ??? Alcohol use: Not Currently Types: 3 Standard drinks or equivalent per week Frequency: Never ??? 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 Hypertension Father ??? Coronary artery disease Father ??? Hyperlipidemia Father Great uncle had prostate cancer Father of kidney failure SYSTEMS REVIEW REVIEW OF SYSTEMS Constitutional: Denies fevers and chills Head: Denies headache Eyes: Denies changes in vision Heart: Denies chest pain Lungs: Endorses shortness of breath GI: Denies nausea and vomiting; denies change in bowel habits : Per HPI Skin: Denies skin changes Neuro: Denies numbness, weakness; endorses lower extremity tingling OBJECTIVE PHYSICAL EXAMINATION General: resting comfortably in the chair Head: normocephalic, atraumatic Eyes: extraocular muscles intact with anicteric sclerae Lungs: non-labored respirations on room air Abdomen: Pfannenstiel scar and lower midline incision. Small supraumbilical incision and laparoscopic sites. Soft, nondistended, nontender Psych: appropriate mood and affect Neuro: ambulates with a normal gait with her walker Skin: no obvious skin lesions LABS Lab Results Component Value Date NA 137 04/19/2019 K 5.0 04/21/2019 CL 100 04/19/2019 BUN 13 04/21/2019 HGB 12.1 04/21/2019 HCT 38.0 04/21/2019 WBC 11.7 (H) 04/21/2019 Lab Results Component Value Date CREATININE 0.8 08/18/2019 IMAGING AND TESTS Dx Chest Ap Or Pa And Lateral 2 Views Result Date: 01/04/2020 Narrative: EXAM: DX CHEST AP OR PA AND LATERAL 2 VIEWS Impression: Comparison with chest radiograph from 04/20/2019. Deeper inspiration with decreased sizeof the cardiac silhouette and central pulmonary vasculature. No pulmonary parenchymal consolidation,pleural effusion, or pneumothorax. Left upper lobe pulmonary nodule noted on 08/18/[address] is not well assessed by radiograph, and would be better followed with dedicated CT. Small gastroesophageal hiatal hernia. Right upper quadrant abdominal surgical clips. Compression of a midthoracic vertebral body, which appears increased from prior comparison studies. Mild thoracic curvature. ASSESSMENT / PLAN #1 Report of renal mass #2 Pulmonary nodule on July 2019 CT chest #3 hypertension, DM2, CHAPITO/CPAP, GERD, depression, fibromyalgia, afib/flutter s/p ablation on warfarin I met with Ms. Metcalf and her son Ramin to discuss her renal mass. Unfortunately, images are not available for me to review. They signed the permission form for us to request these images. We discussed that solid masses in the kidney have a high likelihood of being malignant, in the realmof 80-85%. There are benign entities such as oncocytomas and angiomyolipomas. Renal mass typically grow 3 mm per year. Growth rate most associated with an aggressive tumor is greater than 7-8 mm per year. There is a <1% chance of metastasis for renal masses under 4 cm and the chance is 1% at 4 cm. The treatment methods of a renal mass include active surveillance, percutaneous ablation, partial nephrectomy, and radical nephrectomy. I will review her images once they are sent. We will eventually also obtain repeat CT chest to further assess the nodularity. PLAN - Review CT images once received - contact her and her son Ramin with results and recommendations - CT chest with next abdominal imaging ADDENDUM - I personally reviewed the local CT scan from 11/30/19. There is a 1cm mostly exophytic solid renal mass at the left posterior mid-kidney. No other masses. No RP lymphadenopathy. - Called her and her son. Explained small renal masses. Recommended return in 3- 4 months with repeatCT abd/pelvis and CT chest to reassess the pulm nodularity. documented in this encounter Miscellaneous Notes Addendum Note - Zac Kuo M.D. - 01/04/2020 1:30 PM CDT Addended by: ZAC KUO on: 01/05/2020 02:23 PM Modules accepted: Orders documented in this encounter Plan of Treatment Scheduled Referrals Name Type Priority Associated Diagnoses Order S [facility] Urology office Outpatient Referral Routine Expect ed: visit (clinic) 04/06/2020 (Approximate), Expires: 01/04/2023 documented as of this encounter Results (ABNORMAL) Basic Metabolic Panel (03/30/2020 3:11 PM EMT DISPATCHER) P athologist Signature Potassium, S 3.5 (L) 3.6 - 5.2 03/30/2020 [facility] mmol/L 5:05 PM EMT DISPATCHER Sodium, S 144 135 - 145 03/30/2020 [facility]TL mmol/L 5:05 PM EMT DISPATCHER Chloride, S 104 98 - 107 03/30/2020 DTL mmol/L 5:05 PM EMT DISPATCHER Bicarbonate, S 28 22 - 29 03/30/2020 DTL mmol/L 5:05 PM EMT DISPATCHER Anion Gap 12 7 - 15 03/30/2020 DTL 5:05 PM EMT DISPATCHER BUN (Blood Urea 7 6 - 21 03/30/2020 DTL Nitrogen), S mg/dL 5:05 PM EMT DISPATCHER Creatinine 0.99 0.59 - 03/30/2020 DTL 1.04 mg/dL 5:05 PM EMT DISPATCHER eGFR-Non 61 >=60 03/30/2020 DTL Black/ mL/min/BSA 5:05 PM EMT DISPATCHER Prydeinig Comment: ----ADDITIONAL INFORMATION---- Estimated GFR calculated using the 2009 CKD_EPI creatinine equation. eGFR-Black/ 70 >=60 mL/min/BSA 2020 5:05 PM EMT DISPATCHER DTL Comment: ----ADDITIONAL INFORMATION---- Estimated GFR calculated using the 2009 CKD_EPI creatinine equation. Calcium, Total, S 9.1 8.8 - 10.2 mg/dL 03/30/2020 5:05 PM EMT DISPATCHER DTL Glucose, S 148 (H) 70 - 140 mg/dL 03/30/2020 5:05 PM EMT DISPATCHER D TL Specimen Anatomical Collection Method Collection Time Receive d Time (Source) Location / / Volume Laterality Blood (Blood, 03/30/2020 3:11 PM 03/30/19 3:34 Venous) EMT DISPATCHER PM EMT DISPATCHER Zac Kuo M.D. LAB BLOOD ADD-ON Performing Organization Address City/State/ZIP Code Phon e Number [facility] - [address] [place], [place] [address] [facility] [place] [address] Laboratories-[facility] [address] documented in this encounter Visit Diagnoses Diagnosis Mass Kidney - Primary Chronic Obstructive Pulmonary Disease Ex acerbation (HCC) documented in this encounter Additional Health Concerns Assessment Noted Time PHQ-9 Depression Total Score: 11 05/04/2013 4:05 PM CS T documented as of this encounter Care Teams Household Appliance Repairer Relationship Specialty Start Date End Date Elsewhere, Pcp PCP - General Internal Medicine 07/27/18 documented as of this encounter
--- OUTSIDE RECORDS SUMMARY | 2021-12-27 05:21 | XMS_ITS | Encounter Summary ---
:1955 Author Organization [facility] Address [address] [place] [address] Care Team Providers Name Role Phone Elsewhere, Pcp Primary Care Provider Unavailable Encounter Details Date Type Department Care Team Description 01/04/2020 Hospital Encounter Department of Zac Gonzalez Renal Cell Laboratory Medicine CBess Left (HC C) and Pathology, [facility] in [place], [place] [address] [place] [address] Social History Tobacco Use Types Packs/Day Years [...] or relatives? How often do you attend zoroastrianism or Never 2018 synagogue services? Do you belong to any clubs or No 02/26/2019 organizations such as zoroastrianism groups, unions, fraternal or athletic groups, or [...] Date/Time Associated Comments Diagnosis MICROSCOPIC MANUAL Routine 01/04/2020 12:26 Resul ts for this PM CDT procedure are i n the results section. URINALYSIS WITH Routine 01/04/2020 12:26 Carcinoma Renal Resul ts for this MICROSCOPIC PM CDT Cell Left (HCC) procedure ar e in the results section. documented in this encounter Results (ABNORMAL) Microscopic Manual (01/04/2020 12:26 PM CDT) athologist Signature Microscopy Abnormal 01/04/2020 [facility] 1:31 PM CDT RBC <3 <3 /hpf 01/04/2020 [facility] 1:31 PM CDT WBC 1-3 /hpf 01/04/2020 [facility] 1:31 PM CDT Comment: ----REFERENCE VALUE---- 1-3 ??(Males) 1-10 (Females) Casts, Hyaline 4-10 /lpf 01/04/2020 1:31 PM CDT RE NA Squamous Epithelial Cells, U 4-10 /hpf 01/04/2020 1:31 PM CDT [facility] Bacteria Present (A) 01/04/2020 1:31 PM CDT [facility] Specimen Anatomical Collection Method Collection Time Receive d Time (Source) Location / / Volume Laterality Urine 01/04/2020 12:26 01/04/2020 PM CDT 12:26 PM CDT Zac Gonzalez M.D. LAB URINE ORDERABLES Performing Organization Address City/State/ZIP Code Phon e Number [facility] - [address] [place] [phone] [facility] [place] [address] Laboratories-[facility] 200 [facility] (ABNORMAL) Urinalysis with Microscopic: Urine, Midstream (01/04/2020 12:26 PM CDT) [facility] gist Method Time Signature Source Midstream 01/04/2020 FR[facility] 12:26 PM CDT Appearance Normal Normal 01/04/2020 [facility] 1:38 PM CDT Osmolality, U 483 150 - 1150 01/04/2020 [facility] mOsm/kg 1:24 PM CDT pH, U 5.4 4.5 - 8.0 01/04/2020 [facility] 1:24 PM CDT Comment: ----ADDITIONAL INFORMATION---- This test was developed and its performa nce characteristics determined by [facility] in a manner co nsistent with [...] Organization Address City/State/ZIP Code Phon e Number [facility] - [address] [place], [place] [address] [facility] [place] [address] Laboratories-[facility] [address] documented in this encounter Visit Diagnoses Diagnosis Carcinoma Renal Cell Left (HCC) documented in this encounter Additional Health Concerns Assessment Noted Time PHQ-9 Depression Total Score: 11 05/04/2013 4:05 PM CS T documented as of this encounter Care Teams Terrazzo Polisher Relationship Specialty Start Date End Date Elsewhere, Pcp PCP - General Internal Medicine 07/27/18 documented as of this encounter
--- OUTSIDE RECORDS SUMMARY | 2021-12-27 05:21 | XMS_ITS | Encounter Summary ---
:1955 Author Organization [facility] Address [address] [place] [address] Care Team Providers Name Role Phone Elsewhere, Pcp Primary Care Provider Unavailable Reason for Visit Reason Comments [facility] Nurse Line Encounter Details Date Type Department Care Team Description 03/20/2020 Clinical Communication Division of NERIS Harkins Nurse Bianca Pulmonary Medicine Bess Moreira in [place], [address] [place] [address] [place] [phone] [place], [place] [phone] (Work) [phone] Social History Tobacco Use Types Packs/Day Years [...] or relatives? How often do you attend religion or Never 2018 sikhism services? Do you belong to any clubs or No 02/26/2019 organizations such as religion groups, unions, fraternal or athletic groups, or [...] this encounter Miscellaneous Notes Telephone Encounter - Sarah Sandhu Carolyn - 03/20/2020 4:16 PM CST ([facility] and [place] [facility] locations only: If the patient is not having symptoms and is requesting COVID-19 Nasal Swab testing only, use the process listed in the COVID-19 Patient Requesting COVID PCR Test OTG COVID-19 [place] Patient Requesting COVID PCR Test). In the past 20 days have you had a swab for COVID that tested positive? no Route reply to: justynt pul appt office/vl Scheduling Contact Number: [phone] NILE DETENTION OFFICER documented in this encounter Plan of Treatment Not on filedocumented as of this encounter Visit Diagnoses Not on filedocumented in this encounter Additional Health Concerns Assessment Noted Time PHQ-9 Depression Total Score: 11 05/04/2013 4:05 PM CS T documented as of this encounter Care Teams Plunger Shovel Operator Relationship Specialty Start Date End Date Elsewhere, Pcp PCP - General Internal Medicine 07/27/18 documented as of this encounter
--- OUTSIDE RECORDS SUMMARY | 2021-12-27 05:21 | XMS_ITS | Encounter Summary ---
:[address] [facility] Address [address] [place] [address] Care Team Providers Name Role Phone Elsewhere, Pcp Primary Care Provider Unavailable Reason for Referral MRI/CAT/PET Scan (Routine) - Closed Specialty Diagnoses / Procedures Referred By Contact Refer red To Contact Radiology Diagnoses Nodule Pulmonary Harish Harkins M.D. [facility] Procedures CT Chest without IV Contrast [address] [place] [address] Referral ID Status Reason Start Date Expiration Date Visits Requ ested Visits Authorized [id number] Closed 03/20/2020 03/20/2021 1 1 [facility] Reason for Visit Reason Comments [facility] Triage Encounter Details Date Type Department Care Team Description 03/20/2020 Clinical Communication Division of Pulmonary Adonay Leal [facility] Triage Medicine in [place], [place] [address] [facility] [address] [place] [phone] Social History Tobacco Use Types Packs/Day [...] do you attend baptism or Never 2018 congregational services? Do you belong to any clubs [...] this encounter Miscellaneous Notes Telephone Encounter - Bella Leal R.N. - 03/20/2020 8:51 AM CST A preliminary review of the patient's outside records was completed for pulmonary nodule. Records are located in Care Everywhere, images in QREADs and Chart Review. SITUATION Patient referred by self for the above concern. BACKGROUND Ms. Metcalf has a 7 mm pulmonary nodule in the left upper lobe of her lung. It was incidentally found on a cardiac CT in July of this year. At that time it was new to the prior study which was done in March. Smoking history: Never smoker Patient on blood thinners: Yes - warfarin Cardiac history: Yes - atrial flutter, HTN, Heart Failure, Atrial thrombus, a- fib, Sinus node dysfunction Immunosuppression: No Other cancer history: None Respiratory history: Obstructive sleep apnea on CPAP and Asthma Other significant medical history: Diabetes, rheumatoid arthritis Most recent CT chest: 08/18/19 (cardiac) ASSESSMENT/RECOMMENDATION We will see Ms. Metcalf in [facility] with a dedicated CT chest to assess the nodule and recommend follow up as needed. Patient's case discussed with Dr. Harish Harkins. IMAGES NEEDED PRIOR TO CONSULT All images loaded into [employer], no additional requests needed. [facility] documented in this encounter Plan of Treatment Not on filedocumented as of this encounter Results CT Chest without IV Contrast (03/30/2020 10:26 AM [facility]) Anatomical Region Laterality Modality Chest, Thoracic RST LOS, Thoracic ARZ N/A Co mputed Tomography, Computed LOS, Thoracic FLA LOS Tomography Specimen (Source) Anatomical Collection Method Collection Time Re ceived Time Location / / Volume Laterality 03/30/2020 10:59 AM [facility] Impressions 03/30/2020 12:08 PM [facility] 1. Decrease in size of the left [...] recommendations are attached. Narrative 03/30/2020 12:08 PM [facility] EXAM: CT CHEST WITHOUT IV CONTRAST COMPARISON: [...] lobe (3/178) ??was also present on the 2011 CT, 2 mm nodule in the [...] lungs, some of which are stable since 2011 and others which are not well visualized on prior exams possibly secondary to differences in technique. F or example, 2 mm nodule in the right upper lobe (3/178) was also present on t 2011 CT, 2 mm nodule in the medial left upper lobe ( 3/109) which was also present on the 2011 exam, and 2 mm nodule in the [...] workstation as ordered by the treating p [place] and reviewed by the radiologist to increase [...] this encounter Visit Diagnoses Diagnosis Nodule Pulmonary - Primary Nodule Pulmonary documented in this encounter Additional Health Concerns Assessment Noted Time PHQ-9 Depression Total Score: 11 05/04/2013 4:05 PM CS T documented as of this encounter Care Teams Roll Dough Divider Relationship Specialty Start Date End Date Elsewhere, Pcp PCP - General Internal Medicine 07/27/18 documented as of this encounter
--- OUTSIDE RECORDS SUMMARY | 2021-12-27 05:21 | XMS_ITS | Encounter Summary ---
:1955 Author Organization [facility] Address [address] [place] [address] Care Team Providers Name Role Phone Elsewhere, Pcp Primary Care Provider Unavailable Reason for Referral Outpatient (Routine) - Closed Specialty Diagnoses / Procedures Referred By Contact Refer red To Contact Pulmonary Medicine Geeta Rodriguez [place] M.D. 200 [place] [address] Referral ID Status Reason Start Date Expiration Date Visits Requ ested Visits Authorized [id number] Closed 03/30/2020 03/30/2021 1 1 NEERING FACULTY MEMBER MRI/CAT/PET Scan (Routine) - Closed Specialty Diagnoses / Procedures Referred By Contact Refer red To Contact Radiology Diagnoses Nodule Pulmonary Geeta Rodriguez M.D. [place] Procedures CT Chest without IV Contrast [address] [place] [phone] Referral ID Status Reason Start Date Expiration Date Visits Requ ested Visits Authorized [id number] Closed 03/30/2020 03/30/2021 1 1 NEERING FACULTY MEMBER Outpatient (Routine) - Closed Specialty Diagnoses / Procedures Referred By Contact Refer red To Contact Otorhinolaryngology Diagnoses Hoarseness Chronic Geeta Rodriguez [place] M.D. [address] [place] [address] Referral ID Status Reason Start Date Expiration Date Visits Requ ested Visits Authorized [id number] Closed 03/30/2020 03/30/2021 1 1 NEERING FACULTY MEMBER Reason for Visit Appointment Request (Routine) - Closed Specialty Diagnoses / Procedures Referred By Contact Refer red To Contact Pulmonary Medicine Diagnoses Nodule Pulmonary Referral ID Status Reason Start Date Expiration Date Visits Requ ested Visits Authorized [id number] Closed 02/29/2020 02/28/2021 1 1 Encounter Details Date Type Department Care Team Description 03/30/2020 Comprehensive Visit Division of Harish Ware, Holli Lawrence ulady (Primary Dx); Pulmonary Medicine Geeta Urias M.D. [place] [facility]; in [facility] [address] [place] [address] Social History Tobacco Use Types Packs/Day Years [...] or relatives? How often do you attend yazdanism or Never 2018 islam services? Do you belong to any clubs or No 02/26/2019 organizations such as yazdanism groups, unions, fraternal or athletic groups, or [...] Comments Blood Pressure 148/86 03/30/2020 1:16 PM ENGINEERING FACULTY MEMBER Pulse 61 03/30/2020 1:16 PM ENGINEERING FACULTY MEMBER Temperature 36.1 ??C (97 ??F) 03/30/2020 1:16 PM ENGINEERING FACULTY MEMBER Respiratory Rate - - Oxygen Saturation 98% 03/30/2020 1:16 PM ENGINEERING FACULTY MEMBER Inhaled Oxygen Concentration - - Weight 90.2 kg (198 lb 13.7 oz) 03/30/2020 1:16 PM ENGINEERING FACULTY MEMBER Height 164.4 cm (5' 4.72) 03/30/2020 1:16 PM ENGINEERING FACULTY MEMBER Body Mass Index 33.37 03/30/2020 1:16 PM ENGINEERING FACULTY MEMBER documented in this encounter Consult Notes Geeta Rodriguez M.D. - 03/30/2020 1:30 PM CST SUBJECTIVE REASON FOR CONSULT Pulmonary Lung Nodule Referred by: Nasir HISTORY OF PRESENT ILLNESS Iris Metcalf is a 65 y.o. female who presents for evaluation of pulmonary nodule. Medical comorbidities are notable for paroxysmal atrial fibrillation status post ablation (04/12) on Coumadin, hypertension, hyperlipidemia, type 2 diabetes, obstructive sleep apnea not on CPAP, and asthma. She is a non smoker, but reports significant second hand smoke exposure from family and prior partner. Following her ablation she had a routine CT cardiac angiogram in July which was negative for pulmonary vein stenosis but did show a semi solid 7 x 6 mm nodule in the left upper lobe that was new. A previously described clustered nodularity of posterior basal left lower lobe is no longer present on thisstudy. It was recommended to have a 6 month follow-up CT. In early November, she had a Ct abdomen/pelvis for chronic abdominal pain which showed a 1.3 cm exophytic mass. MRI of the abdomen was then performed elsewhere which reportedly showed a 1.3 cm solid renal mass that was read as likely to be RCC at an outside institution. This was reviewed by urology here in December and It was recommended that she have a repeat CT abdomen pelvis 3-[address] scan today showed decrease in size of the left upper lobe nodule since 08/18/2019. Other symptoms she mentioned today with was voice hoarseness x1 year and urinary urgency x1 year andlyn has had some evaluation with primary care for these but requested referral here. Family History: No cancer in first degree relatives. OBJECTIVE PHYSICAL EXAM General: Alert, interactive, not acutely ill, no apparent distress. Skin: No rashes or lesions. Lungs: Normal rate and effort. Clear to auscultation. Heart: Regular rate and rhythm. No murmurs appreciated. No extremity edema. Neuro: No focal deficits grossly Mental: Mood and affect congruent. Alert and oriented. Attention intact. No evidence of disorganizedthinking. 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 DIAGNOSTIC REVIEW I have reviewed the patient's current laboratory, imaging, and other diagnostic studies, including the CT chest from today which showed improvement in the AMI nodule. ASSESSMENT / PLAN We discussed the CT findings which fortunately showed improvement in the size of the left upper lobenodule that was now less than 6 mm. Given the renal mass we discussed she may be at elevated risk, however, and recommended repeat CT scan in 1 year. Regarding the left renal mass, follow-up with Urology in repeat CT scan was not scheduled, we will help facilitate this. See also had questions about increased urinary urgency that she has been dealingwith for the past year that she plans to discuss with Urology. Regarding the voice hoarseness, she requested evaluation for this as well and we will set her up with ENT evaluation. #1 Indeterminate pulmonary nodules #2 Hoarseness of voice #3 Left renal mass #4 Urinary frequency PLAN 1. Repeat CT chest in 1 year for pulmonary nodule 2. Repeat CT A/P to assess renal mass and follow-up with urology 3. ENT evaluation for voice hoarseness Geeta Ware M.D. I personally spent a total of 45 minutes in jps-[id number]-face time performing a review of the record and/or discussion with the patient/caregiver as described above. NEERING FACULTY MEMBER Jil Mendoza M.D. - 03/30/2020 1:30 PM CST Chief Complaint: Pulmonary nodule HPI: I have personally seen and evaluated Iris Metcalf. I have reviewed the relevant laboratory, radiographic images, chart notes, and impression, report and plan of care with Dr. Geeta Ware andagree with his documentation from today's date. Briefly, Ms. Metcalf is a 65 year old lady referred for follow up evaluation of a pulmonary nodule identified July 2019 in the left upper lobe measuring at that time 7 x 6 mm in size. She is a never smoker but has significant second hand smoke exposure per report. She also has medical history significant for a left sided renal mass and is being followed in Urology for this. Today her CT chest is notable for decrease in the size of the left upper lobe nodule now measuring 5x 4 mm in size compared with July 2019. There are multiple additional 1-2 mm nodules present. No thoracic lymphadenopathy Assessment/Plan: #1 Indeterminate pulmonary nodules #2 Hoarseness of voice #3 Left renal mass #4 Urinary frequency We reviewed the good news with her today that the AMI nodule appears smaller in size compared with July 2019. The remaining nodules present are tiny and measuring 1-2 mm in size. With her renal mass I think we should continue to follow these nodules and would agree with repeat CT chest in 12 months. ENT referral for hoarseness of voice. Urology follow up for renal mass and urinary frequency evaluation. Otherwise the plan of care is as outlined in Dr. Harish Ware's note from today's date. NEERING FACULTY MEMBER documented in this encounter Plan of Treatment Scheduled Orders Name Type Priority Associated Diagnoses Order S chedule CT Chest without IV Imaging RAD - Routine (most Nodule Pulmona ry Expected: Contrast inpatients and all outpatients) (Approximate), Expires: 03/30/2023 Scheduled Referrals Name Type Priority Associated Order Schedule Diagnoses Otorhinolaryngology - Outpatient Routine Hoarseness Expect ed: Laryngology and voice Referral Chronic 2020 disorders consult (clinic) ( Approximate), Expires: 03/30/2023 Pulmonary Medicine office Outpatient Routine Ex pected: visit (clinic) Referral 03/30/2021 (Approximate), Expires: 03/30/2023 documented as of this encounter Results (ABNORMAL) Urinalysis with Microscopic: Urine, Clean Catch (03/30/2020 4:05 PM ENGINEERING FACULTY MEMBER) [facility] Method Time Signature Source Midstream 03/30/2020 FREDY 4:05 PM ENGINEERING FACULTY MEMBER Appearance Normal Normal 03/30/2020 FREDY 6:00 PM ENGINEERING FACULTY MEMBER Osmolality, U 536 150 - 1150 03/30/2020 FREDY mOsm/kg 5:24 PM ENGINEERING FACULTY MEMBER pH, U 6.1 4.5 - 8.0 03/30/2020 FREDY 5:24 PM ENGINEERING FACULTY MEMBER Comment: ----ADDITIONAL INFORMATION---- This test was developed and its performa nce characteristics determined by [facility] in a manner co nsistent with CLIA requirements. This test has not bee n cleared or approved by the U.S. Food and Drug Admin istration. Glucose 16 (H) 0 - 15 mg/dL 03/30/2020 6:00 PM ENGINEERING FACULTY MEMBER FREDY Protein, U 35 (H) <26 mg/dL 03/30/2020 6:00 PM ENGINEERING FACULTY MEMBER FREDY Comment: ----ADDITIONAL INFORMATION---- On 09/17/2016 the total protein assay me thod changed resulting in approximately a 15% increase in prote in values. Protein/Osmolality 0.65 (H) <0.42 Ratio 03/30/2020 6:00 PM ENGINEERING FACULTY MEMBER FREDY Comment: ----ADDITIONAL INFORMATION---- On 09/17/2016 the total protein assay me thod changed resulting in approximately a 15% increase in prote in values. Predicted 24 Hr Protein 454 mg/24 h 03/30/2020 6:00 PM ENGINEERING FACULTY MEMBER FREDY Predicted Range 112-1839 mg/24 h 03/30/2020 6:00 PM ENGINEERING FACULTY MEMBER R ALFA Hemoglobin, QL Negative Negative 03/30/2020 6:27 PM ENGINEERING FACULTY MEMBER RE NA Specimen Anatomical Collection Method Collection Time Receive d Time (Source) Location / / Volume Laterality Urine (Urine, 03/30/2020 4:05 PM 03/30/19 4:05 Clean Catch) ENGINEERING FACULTY MEMBER PM ENGINEERING FACULTY MEMBER Geeta Ware M.D. LAB URINE ORDERABLES Performing Organization Address City/State/ZIP Code Phon e Number [facility] - [address] [place], [place] [address] [place] [address] Laboratories-[facility] 200 [facility] (ABNORMAL) CBC without Differential (03/30/2020 3:11 PM ENGINEERING FACULTY MEMBER) [facility] gist Method Time Signature Hemoglobin 13.9 11.6 - 03/30/2020 DTL 15.0 g/dL 3:44 PM ENGINEERING FACULTY MEMBER Hematocrit 42.8 35.5 - 03/30/2020 DTL 44.9 % 3:44 PM ENGINEERING FACULTY MEMBER Erythrocytes 4.58 3.92 - 03/30/2020 DTL 5.13 3:44 PM ENGINEERING FACULTY MEMBER x10(12)/L MCV 93.4 78.2 - 03/30/2020 DTL 97.9 fL 3:44 PM ENGINEERING FACULTY MEMBER RBC Distrib Width 12.5 12.2 - 03/30/2020 DTL 16.1 % 3:44 PM ENGINEERING FACULTY MEMBER Platelet Count 481 (H) 157 - 371 03/30/2020 DTL x10(9)/L 3:44 PM ENGINEERING FACULTY MEMBER Leukocytes 10.9 (H) 3.4 - 9.6 03/30/2020 DTL x10(9)/L 3:44 PM ENGINEERING FACULTY MEMBER Specimen Anatomical Collection Method Collection Time Receive d Time (Source) Location / / Volume Laterality Blood (Blood, 03/30/2020 3:11 PM 03/30/19 21 3:34 Venous) ENGINEERING FACULTY MEMBER PM ENGINEERING FACULTY MEMBER Geeta Ware M.D. LAB BLOOD ADD-ON Performing Organization Address City/State/ZIP Code Phon e Number [facility] - [address] [place], [place] [address] [facility] [address] ALT (Alanine Aminotransferase) (03/30/2020 3:11 PM ENGINEERING FACULTY MEMBER) [facility] gist Method Time Signature Alanine 27 7 - 45 03/30/2020 DTL Aminotransferase U/L 5:05 PM ENGINEERING FACULTY MEMBER (ALT), S Specimen Anatomical Collection Method Collection Time Receive d Time (Source) Location / / Volume Laterality Blood (Blood, 03/30/2020 3:11 PM 03/30/19 3:34 Venous) ENGINEERING FACULTY MEMBER PM ENGINEERING FACULTY MEMBER Geeta Ware M.D. LAB BLOOD ADD-ON Performing Organization Address City/State/ZIP Code Phon e Number [facility] - [address] [place], [place] [address] [facility] [place], [place] [id number] [place] [address] AST (Aspartate Aminotransferase) (03/30/2020 3:11 PM ENGINEERING FACULTY MEMBER) [facility] gist Method Time Signature Aspartate 22 8 - 43 03/30/2020 DTL Aminotransferase U/L 5:05 PM ENGINEERING FACULTY MEMBER (AST), S Specimen Anatomical Collection Method Collection Time Receive d Time (Source) Location / / Volume Laterality Blood (Blood, 03/30/2020 3:11 PM 03/30/19 21 3:34 Venous) ENGINEERING FACULTY MEMBER PM ENGINEERING FACULTY MEMBER Geeta Ware M.D. LAB BLOOD ADD-ON Performing Organization Address City/State/ZIP Code Phon e Number [facility] - [address] [place], [place] [address] [facility] [place] [address] [facility] [address] (ABNORMAL) Alkaline Phosphatase (03/30/2020 3:11 PM ENGINEERING FACULTY MEMBER) P athologist Signature Alkaline 116 (H) 35 - 104 03/30/2020 DTL Phosphatase, S U/L 5:05 PM ENGINEERING FACULTY MEMBER Specimen Anatomical Collection Method Collection Time Receive d Time (Source) Location / / Volume Laterality Blood (Blood, 03/30/2020 3:11 PM 03/30/19 21 3:34 Venous) ENGINEERING FACULTY MEMBER PM ENGINEERING FACULTY MEMBER Geeta Ware M.D. LAB BLOOD ADD-ON Performing Organization Address City/State/[facility] Code Phon e Number [facility] - [address] [place], [place] [address] [facility] [place] [address] Laboratories-[facility] [address] documented in this encounter Visit Diagnoses Diagnosis Nodule Pulmonary - Primary Hoarseness Chronic Mass Kidney documented in this encounter Additional Health Concerns Assessment Noted Time PHQ-9 Depression Total Score: 11 05/04/2013 4:05 PM CS T documented as of this encounter Care Teams Seafood Processor Relationship Specialty Start Date End Date Elsewhere, Pcp PCP - General Internal Medicine 07/27/18 documented as of this encounter
--- OUTSIDE RECORDS SUMMARY | 2021-12-27 05:21 | XMS_ITS | Encounter Summary ---
:1955 Author Organization [facility] Address [address] [place] [address] Care Team Providers Name Role Phone Elsewhere, Pcp Primary Care Provider Unavailable Reason for Visit Reason Comments COVID Inquiry Encounter Details Date Type Department Care Team Description 01/03/2020 Clinical Communication Department of Zac Gonzalez Urology in [place], [place] [address] [place] [phone] Social History Tobacco Use Types Packs/Day Years [...] do you attend rastafarian or Never 2018 taoist services? Do you belong to any clubs [...] documented as of this encounter Care Teams Deputy Chief Sheriff Relationship Specialty Start Date End Date Elsewhere, Pcp PCP - General Internal Medicine 07/27/18 documented as of this encounter
--- OUTSIDE RECORDS SUMMARY | 2021-12-27 05:21 | XMS_ITS | Encounter Summary ---
:1955 Author Organization [facility] Address [address] [place] [address] Care Team Providers Name Role Phone Elsewhere, Pcp Primary Care Provider Unavailable Encounter Details Date Type Department Care Team Description 01/04/2020 Hospital Encounter Department of Zac Gonzalez Renal Cell Laboratory Medicine CBess Left (HC C) and Pathology, [facility] in [place], [place] [address] [place] [address] Social History Tobacco Use Types Packs/Day Years [...] or relatives? How often do you attend mormonism or Never 2018 faith services? Do you belong to any clubs or No 02/26/2019 organizations such as mormonism groups, unions, fraternal or athletic groups, or [...] Procedure Name Priority Date/Time Associated Comments Diagnosis ELECTROLYTE (CHEM 4) Routine 01/04/2020 10:58 Carcinoma Renal Results for this PANEL, S/P AM CDT Cell Left (HCC) procedure ar e in the results section. CBC WITH DIFFERENTIAL, B Routine 01/04/2020 10:58 Carcinoma Re nal Results for this AM CDT Cell Left (HCC) procedure ar e in the results section. BUN (BLOOD UREA Routine 01/04/2020 10:58 Carcinoma Renal Resul ts for this NITROGEN), S/P AM CDT Cell Left (HCC) procedure are in the results section. ALANINE AMINOTRANSFERASE Routine 01/04/2020 10:58 Carcinoma Re nal Results for this (ALT), S/P AM CDT Cell Left (HCC) procedure ar e in the results section. ASPARTATE Routine 01/04/2020 10:58 Carcinoma Renal Results for this AMINOTRANSFERASE (AST), AM CDT Cell Left (HCC) p rocedure are in S/P the results section. ALKALINE PHOSPHATASE, Routine 01/04/2020 10:58 Carcinoma Renal Results for this S/P AM CDT Cell Left (HCC) procedure ar e in the results section. CREATININE WITH EGFR, Routine 01/04/2020 10:58 Carcinoma Renal Results for this S/P AM CDT Cell Left (HCC) procedure ar e in the results section. CALCIUM, TOT, S/P Routine 01/04/2020 10:58 Carcinoma Renal Res ults for this AM CDT Cell Left (HCC) procedure ar e in the results section. documented in this encounter Results (ABNORMAL) Alkaline Phosphatase (01/04/2020 10:58 AM CDT) [...] Organization Address City/State/ZIP Code Phon e Number [facility] - [address] [place], [place] [address] [facility] [place] [address] Laboratories-[facility] [address] (ABNORMAL) ALT (Alanine Aminotransferase) (01/04/2020 10:58 AM CDT) Patholo gist Method Time Signature Alanine 56 (H) 7 - 45 01/04/2020 DTL Aminotransferase U/L 12:58 PM CDT (ALT), S Specimen Anatomical Collection Method Collection Time Receive d Time (Source) Location / / Volume Laterality Blood (Blood, 01/04/2020 10:58 01/04/2020 Venous) AM CDT 11:38 AM CDT Zac Gonzalez M.D. LAB BLOOD ADD-ON Performing Organization Address City/State/ZIP Code Phon e Number [facility] - [address] [place], [place] [address] [facility] [address] AST (Aspartate Aminotransferase) (01/04/2020 10:58 AM CDT) Patholo gist Method Time Signature Aspartate 33 8 - 43 01/04/2020 DTL Aminotransferase U/L 12:58 PM CDT (AST), S Specimen Anatomical Collection Method Collection Time Receive d Time (Source) Location / / Volume Laterality Blood (Blood, 01/04/2020 10:58 01/04/2020 Venous) AM CDT 11:38 AM CDT Zac Gonzalez M.D. LAB BLOOD ADD-ON Performing Organization Address City/[facility]/ZIP Code Phon e Number [facility] - 200 [place], [place] [address] [place], [place] [phone] [place] [address] Calcium, Total (01/04/2020 10:58 AM CDT) P athologist Signature Calcium, Total, 9.0 8.8 - 10.2 01/04/2020 DTL S mg/dL 12:58 PM CDT Specimen Anatomical Collection Method Collection Time Receive d Time (Source) Location / / Volume Laterality Blood (Blood, 01/04/2020 10:58 01/04/2020 Venous) AM CDT 11:38 AM CDT Zac Gonzalez M.D. LAB BLOOD ADD-ON Performing Organization Address City/State/ZIP Code Phon e Number [facility] - [address] [place], [place] [address] [facility] [place] [place] [address] (ABNORMAL) CBC with Differential, Blood (01/04/2020 10:58 AM CDT) [facility] gist Method Time Signature Hemoglobin 13.5 11.6 - [...] Organization Address City/State/ZIP Code Phon e Number [facility] - [address] [place], [place] [address] [facility] [place] [address] Laboratories-[facility] [address] Creatinine with Estimated GFR (01/04/2020 10:58 AM CDT) athologist Signature Creatinine 0.87 0.59 - 01/04/2020 DTL 1.04 mg/dL 12:58 PM CDT eGFR-Non 72 >=60 01/04/2020 DTL Black/ mL/min/BSA 12:58 PM CDT [place] Comment: ----ADDITIONAL INFORMATION---- Estimated GFR calculated using [...] M.D. LAB BLOOD ADD-ON Performing Organization Address City/[facility] Phon e Number [facility] - [address] BUN (Blood Urea Nitrogen) (01/04/2020 10:58 AM CDT) athologist Signature BUN (Blood Urea 9 6 - 21 01/04/2020 DTL Nitrogen), S mg/dL 12:58 PM CDT Specimen Anatomical Collection Method Collection Time Receive d Time (Source) Location / / Volume Laterality Blood (Blood, 01/04/2020 10:58 01/04/2020 Venous) AM CDT 11:38 AM CDT Zac Gonzalez M.D. LAB BLOOD ADD-ON Performing Organization Address City/[facility] Phon e Number [facility] - [address] Electrolyte (Chem 4) Panel (01/04/2020 10:58 AM CDT) athologist Signature Sodium, S 143 135 - [...] Organization Address City/State/ZIP Code Phon e Number [facility] - [address] [place], [place] [address] [facility] [place] [address] Laboratories-[facility] [address] documented in this encounter Visit Diagnoses Diagnosis Carcinoma Renal Cell Left (HCC) documented in this encounter Additional Health Concerns Assessment Noted Time PHQ-9 Depression Total Score: 11 05/04/2013 4:05 PM CS T documented as of this encounter Care Teams Testing Manager Relationship Specialty Start Date End Date Elsewhere, Pcp PCP - General Internal Medicine 07/27/18 documented as of this encounter
--- OUTSIDE RECORDS SUMMARY | 2021-12-27 05:21 | XMS_ITS | Encounter Summary ---
:1955 Author Organization [facility] Address [address] [place] [address] Care Team Providers Name Role Phone Elsewhere, Pcp Primary Care Provider Unavailable Reason for Visit Outpatient (Routine) - Closed Specialty Diagnoses / Procedures Referred By Referred To Contact Contact Cardiovascular Diseases / Diagnoses Flutter Atrial (HCC) Atrial Fibrillation Paroxysmal (HCC) [facility] [address] [place] [phone] Referral ID Status Reason Start Date Expiration Date Visits Requ ested Visits Authorized [id number] Closed 04/21/2019 04/20/2020 1 1 Encounter Details Date Type Department Care Team Description 08/19/2019 Office Visit Department of Naren Arroyo M.D. Flutter Atrial (HCC); Cardiovascular Medicine Porfirio Villegas M.D. [address] [place] [phone] Atrial Fibrillation Paroxysmal (HCC) in [facility] [address] [place] [phone] Social History Tobacco Use Types [...] or relatives? How often do you attend methodist or Never 2018 catholic services? Do you belong to any clubs or No 02/26/2019 organizations such as methodist groups, unions, fraternal or athletic groups, or [...] Sign Reading Time Taken Comments Blood Pressure 136/75 08/19/2019 2:28 PM CDT Pulse 66 08/19/2019 2:28 PM CDT Temperature - - Respiratory Rate - - Oxygen Saturation - - Inhaled Oxygen Concentration - - Weight 90.9 kg (200 lb 6.4 oz) 08/19/2019 2:28 PM CDT Height 165.1 cm (5' 5) 08/19/2019 2:28 PM CDT Body Mass Index 33.35 08/19/2019 2:28 PM CDT documented in this encounter Progress Notes Porfirio Villegas M.D. - 08/19/2019 3:00 PM CDT SUBJECTIVE I had the pleasure of seeing Ms. Metcalf in followup in the [facility] today. She is a very pleasant 64-year-old woman with a history of persistent atrial fibrillation, left atrial appendage thrombus (resolved), hypertension, hyperlipidemia, type 2 diabetes, sleep apnea, mitral regurgitation, diastolic dysfunction, cognitive impairment who underwent a PVI and CTI ablation with Dr. Yeager on April 19. She is here for her postablation followup. During the procedure, bilateral wide areacircumferential ablation for pulmonary vein isolation was performed. CTI ablation was also performed. Post ablation, she was started on flecainide 100 mg twice daily which she tolerated well. Over the last 4 months, she has done very well. She reports improvement in her dyspnea and exertional limitation. She has recently moved to a new assisted living facility where she has some more independence. She is able to walk about a mile at a time outside of her house, sometimes with support of a walker. She reports that she continues to use a diuretic and continues to experience diuretic response with that. She continues on warfarin without interruption and no bleeding complications. Current Outpatient Medications: ??? acetaminophen (TYLENOL) 325 [...] daily. For anemia, Disp: , Rfl: ??? fluticasone furoate-vilanteroL (BREO ELLIPTA DISKUS) 200-25 [...] morning before breakfast., Disp: , Rfl: ??? polyethylene glycol (MIRALAX) 17 gram powder packet, Take 1 packet (17 g total) by mouth 2 (two)times a day. Dissolve each 17 g dose in 240 mLs (8 ounces) of beverage. (Patient taking differently:Take 17 g by mouth as needed. Dissolve each 17 g dose in 240 mLs (8 ounces) of beverage. ), Disp: 60packet, Rfl: 11 ??? potassium chloride (KLOR-CON M/KDUR) 20 mEq [...] days of the week, Disp: , Rfl: ??? flecainide (TAMBOCOR) 100 mg tablet, Take 1 tablet (100 mg total) by mouth 2 (two) times a day.,Disp: 180 tablet, Rfl: 1 DIAGNOSTICS Testing today is notable for a CT of the chest that shows no pulmonary vein stenosis and no intracardiac mass or thrombus. Incidentally, there is a new pulmonary nodule that is described as an irregular, semi-solid, 7 x 6 mm nodule in the left upper lobe that is compared to the prior study in March of 2019. ECG today shows sinus rhythm at 66 beats per minute; there is also nonspecific intraventricular conduction delay. TTE August 19, 2019, shows normal LV size and function, EF 63%, normal RV size and function, mild AI, moderate MR, normal IVC size with reduced inspiratory collapse. Holter monitor shows sinus rhythm throughout the recording with rate varying between 54 and 83 beatsper minute, average 66 beats per minute. Rare PVCs and PACs. ASSESSMENT / PLAN #1 Persistent atrial fibrillation, status post PVI and CTI ablation March 2019 #2 Diastolic dysfunction #3 Hyperlipidemia #4 Hypertension #5 CHAPITO #6 Obesity #7 Resolved left atrial appendage thrombus I was pleased to see that Ms. Metcalf is doing very well post ablation. She reports improvement in her exercise capacity and a decrease in her dyspnea. She remains reasonably active to the extent possible in her assisted living facility. Her post ablation followup testing is satisfactory. There is an incidental finding of a lung nodule on her CT that will require followup, specifically with a 6-month followup CT scan of the chest. She has no prior smoking history but reports significant secondhand exposure over many years. I will let her primary care provider know regarding this finding and will defer followup testing to them for further coordination. I also think that it would be reasonable at this point to discontinue flecainide. The patient is on numerous medications already and would like to discontinue some of them if possible. I think it is reasonable to see how she will progress clinically without any antiarrhythmics at this point. I emphasized the importance of continuing anticoagulation lifelong, particularly given her prior left atrial appendage thrombus, with an INR goal of 2.5-3.5. All the above was discussed in detail with Ms. Metcalf who expressed understanding and agreement with the plan. I will follow up on the Holter monitor that is currently pending. I also provided written instructions for her care staff at the assisted living facility regarding medication changes. I will not schedule specific followup in the [facility], but I gave her again my contact information and I asked her to contact me should any pertinent issues or concerns arise. documented in this encounter Plan of Treatment Not on filedocumented as of this encounter Visit Diagnoses Diagnosis Flutter Atrial (HCC) Atrial Fibrillation Paroxysmal (HCC) documented in this encounter Additional Health Concerns Assessment Noted Time PHQ-9 Depression Total Score: 11 05/04/2013 4:05 PM CS T documented as of this encounter Care Teams Content Analyst Relationship Specialty Start Date End Date Elsewhere, Pcp PCP - General Internal Medicine 07/27/18 documented as of this encounter
--- OUTSIDE RECORDS SUMMARY | 2021-12-27 05:21 | XMS_ITS | Encounter Summary ---
:1955 Author Organization [facility] Address [address] [place] [address] Care Team Providers Name Role Phone Elsewhere, Pcp Primary Care Provider Unavailable Reason for Visit Reason Comments Request for records Encounter Details Date Type Department Care Team Description 01/05/2020 Clinical Communication Department of Regine Gonzalez for records Urology in Zac Perez M.D. [place], [place] [address] [place] [phone] Social History Tobacco Use Types [...] do you attend alevism or Never 2018 uatsdin services? Do you belong to any clubs [...] this encounter Miscellaneous Notes Telephone Encounter - Christine Taylor - 01/05/2020 9:45 AM CDT Request for records faxed to [employer] Release of Information - FAX: [phone]. documented in this encounter Plan of Treatment Not on filedocumented as of this encounter Visit Diagnoses Not on filedocumented in this encounter Additional Health Concerns Assessment Noted Time PHQ-9 Depression Total Score: 11 05/04/2013 4:05 PM CS T documented as of this encounter Care Teams Product Developer Relationship Specialty Start Date End Date Elsewhere, Pcp PCP - General Internal Medicine 07/27/18 documented as of this encounter
--- OUTSIDE RECORDS SUMMARY | 2021-12-27 05:21 | XMS_ITS | Encounter Summary ---
:[address] [facility] Address [address] [place] [address] Care Team Providers Name Role Phone Elsewhere, Pcp Primary Care Provider Unavailable Reason for Referral Outpatient (Routine) - Closed Specialty Diagnoses / Procedures Referred By Contact Refer red To Contact Diagnoses Flutter Atrial (HCC) Atrial Fibrillation Paroxysmal (HCC) Tucker Rutherford P.A.-C. [facility] Procedures Echo Transthoracic (TTE) [address] [place] [phone] Referral ID Status Reason Start Date Expiration Date Visits Requ ested Visits Authorized [id number] Closed 04/21/2019 04/20/2020 1 1 Reason for Visit Outpatient (Routine) - Closed Specialty Diagnoses / Procedures Referred By Contact Refer red To Contact Diagnoses Flutter Atrial (HCC) Atrial Fibrillation Paroxysmal (HCC) Tucker Rutherford P.A.-C. [facility] Procedures Echo Transthoracic (TTE) [address] [place] [phone] Referral ID Status Reason Start Date Expiration Date Visits Requ ested Visits Authorized [id number] Closed 04/21/2019 04/20/2020 1 1 Encounter Details Date Type Department Care Team Description 08/19/2019 Hospital Department of [place], Tucker Flutter Atria l (HCC); Encounter Cardiovascular Brian Caballero Atrial Fibrillation Paroxysmal (HCC) Diseases in [place], [facility] [address] [place], [place] [address] [phone] [place], [place] [phone] (Work) [phone] Social History Tobacco Use Types Packs/Day Years [...] do you attend synagogue or Never 2018 anglican services? Do you belong to any clubs [...] furoate-vilanteroL (BREO ELLIPTA DISKUS) 200-25 mcg/act inhaler guaifenesin (DIABETIC Take 5-10 mL by mouth [...] (two) hours as needed for muscle/joint pain. metoprolol [...] tabs all other days of the week polyethylene glycol Take 1 packet (17 g 60 packet 11 12/11/ 019 12/11/2019 (MIRALAX) 17 gram total) by mouth 2 powder packet (two) times a day. Dissolve each 17 g dose in 240 mLs (8 ounces) of beverage. DULoxetine (CYMBALTA) Take 30 mg by mouth at 0 03/30/[address] capsule bedtime. ferrous sulfate 325 mg Take 1 tablet (65 mg 0 03/30/2020 (65 mg iron) DR tablet of iron total) by mouth daily. For anemia furosemide (LASIX) 20 Take 20 mg by mouth 0 03/30/2020 mg tablet daily. documented as of this encounter Plan of Treatment Not on filedocumented as of this encounter Procedures Procedure Name Priority Date/Time Associated Diagnosis Comme nts (TTE) 2D ECHO Routine 08/19/2019 1:11 PM Flutter Atria l (HCC) Results for this DOPPLER COLOR CDT Atrial Fibrillation procedu re are in Paroxysmal (HCC) the results section. documented in this encounter Results (TTE) 2D ECHO DOPPLER COLOR (08/19/2019 1:11 PM CDT) P athologist Signature Ejection 63 MC CV EIMS Fraction LV End-Diastolic 51 MC CV EIMS Diameter LV End-Diastolic 115 MC CV EIMS Volume LV End-Systolic 42 MC CV EIMS Volume Left ventricular 37 MC CV EIMS stroke volume index Cardiac Output 4.26 MC CV EIMS Cardiac Index 2.15 MC CV EIMS TR Vmax 2.39 MC CV EIMS RA Pressure 10 MC CV EIMS RV Systolic 33 MC CV EIMS Pressure Anatomical Region Laterality Modality Echocardiography Specimen (Source) Anatomical Collection Method Collection Time Re ceived Time Location / / Volume Laterality 08/19/2019 12:21 PM CDT Impressions 08/19/2019 1:52 PM CDT Status post catheter ablation of atrial fibrillation and atrial flutter 13-APR-2019. Echocardiogram performed per post ablati on for atrial fibrillation protocol. ??LEFT VENTRICLE: Normal left ventricular chamber size. ?? Calculated 2-D biplane volumetric left ventricular ejection fraction 63 %. ??No regional wa ll motion abnormalities. ??RIGHT VENTRICLE: ??Normal right ventricular chamber size by visual estim ate. ??Normal right ventricular systolic function. Estimated right ventricular systolic pre ssure 33 mmHg (systolic blood pressure 139 mmHg). ATRIA: ??Severely enlarged left atrial s ize by visual estimate. ??Mildly enlarged right atrial size by visual estimate. ??CARDIAC VALVE S: ??Trileaflet aortic valve. ??Thickened aortic valve. Mild aortic valve regurgitation. ??Thick ened mitral valve with slightly tethered posterior leaflet and anterior leaflet over-ride. The anterior leaflet tip thickening may be post-inflammatory in etiology. ??Mildly calcified mitral annulus. ??Moderate mitral valve regurgitation. ??Normal tricuspid valve. ??Mild tricuspid valve regurgitation. ??OTHER ECHO FINDINGS: ??Normal inferior vena cava si ze with reduced inspiratory collapse (<50%). ??No intracardiac mass or thrombus, but the l eft atrial appendage cannot be visualized adequately with transthoracic echo to exclude throm bus in this location. ??No pericardial effusion. Prominent circumferential epicardial fat layer. For the complete report, see the [employer] Documents. Narrative 08/19/2019 1:52 PM CDT For the complete report, see the [employer] Documents. Final Impressions 1. Echocardiogram performed per post abl ation for atrial fibrillation protocol (s/p catheter ablation for atrial fibrillation and flu tter 04/13/2019). 2. Normal left ventricular chamber size. ??Calculated ejection fraction 63%. No regional wall motion abnormalities. 3. Normal right ventricular chamber size by visual estimate with normal systolic function. Estimated right ventricular systolic pre ssure 33 mmHg. 4. Mild aortic valve regurgitation. 5. Moderate mitral valve regurgitation ( thickened posterior leaflet with anterior leaflet override resulting in posteriorly direct ed jet). 6. Mild tricuspid valve regurgitation. 7. Normal inferior vena cava size with r educed inspiratory collapse (<50%). 8. No pericardial effusion. 9. Compared to the report of 10/20/2018 the following changes have occurred: Left ventricular systolic function has slightly improved. Tricuspid regurgitation is less prominent (right atrial size and tricuspid annulus diamet er are smaller). Mitral and aortic regurgitation severity appear visually similar. Side b y side comparison of images performed. Procedure Note Nicole Myers M.D. - 08/19/2019 For the complete report, see the [employer] Documents. Final Impressions 1. Echocardiogram performed per post abl ation for atrial fibrillation protocol (s/p catheter ablation for atrial fibrillation and flu tter 04/13/2019). 2. Normal left ventricular chamber size. Calculated ejection fraction 63%. No regional wall motion abnormalities. 3. Normal right ventricular chamber size by visual estimate with normal systolic function. Estimated right ventricular systolic pre ssure 33 mmHg. 4. Mild aortic valve regurgitation. 5. Moderate mitral valve regurgitation ( thickened posterior leaflet with anterior leaflet override resulting in posteriorly direct ed jet). 6. Mild tricuspid valve regurgitation. 7. Normal inferior vena cava size with r educed inspiratory collapse (<50%). 8. No pericardial effusion. 9. Compared to the report of 10/20/2018 the following changes have occurred: Left ventricular systolic function has slightly improved. Tricuspid regurgitation is less prominent (right atrial size and tricuspid annulus diamet er are smaller). Mitral and aortic regurgitation severity appear visually similar. Side b y side comparison of images performed. Findings Status post catheter ablation of atrial fibrillation and atrial flutter 13-APR-2019. Echocardiogram performed per post ablati on for atrial fibrillation protocol. LEFT VENTRICLE: Normal left ventricular chamber size. Ca lculated 2-D biplane volumetric left ventricular ejection fraction 63 %. No regional wall motion abnormalities. RIGHT VENTRICLE: Normal right ventricular chamber size by visual estim ate. Normal right ventricular systolic function. Estimated right ventricular systolic pre ssure 33 mmHg (systolic blood pressure 139 mmHg). ATRIA: Severely enlarged left atrial siz e by visual estimate. Mildly enlarged right atrial size by visual estimate. CARDIAC VALVES: Trileaflet aortic valve. Thickened aortic valve. Mild aortic valve regurgitation. Thicken ed mitral valve with slightly tethered posterior leaflet and anterior leaflet over-ride. The anterior leaflet tip thickening may be post-inflammatory in etiology. Mildly ca lcified mitral annulus. Moderate mitral valve regurgitation. Normal tricuspid valve. M ild tricuspid valve regurgitation. OTHER ECHO FINDINGS: Normal inferior vena cava size with reduced inspiratory collapse (<50%). No intracardiac mass or thrombus, but the l eft atrial appendage cannot be visualized adequately with transthoracic echo to exclude throm bus in this location. No pericardial effusion. Prominent circumferential epicardial fat layer. For the complete report, see the [employer] Documents. Tucker Rutherford P.A.-C. CV ECHO PROCEDURES documented in this encounter Visit Diagnoses Diagnosis Flutter Atrial (HCC) Atrial Fibrillation Paroxysmal (HCC) documented in this encounter Additional Health Concerns Assessment Noted Time PHQ-9 Depression Total Score: 11 05/04/2013 4:05 PM CS T documented as of this encounter Care Teams Hat Finishing Materials Preparer Relationship Specialty Start Date End Date Elsewhere, Pcp PCP - General Internal Medicine 07/27/18 documented as of this encounter
--- OUTSIDE RECORDS SUMMARY | 2021-12-27 05:21 | XMS_ITS | Encounter Summary ---
:1955 Author Organization [facility] Address [address] [place] [id number] Care Team Providers Name Role Phone Elsewhere, Pcp Primary Care Provider Unavailable Reason for Visit Reason Comments Follow-up Encounter Details Date Type Department Care Team Description 08/24/2019 Clinical Communication Department of Kitty Mchugh [facility] Cardiovascular Medicine R.N. in [facility] [address] [place] [phone] Social History Tobacco Use Types Packs/Day [...] do you attend islam or Never 2018 druze services? Do you belong to any clubs [...] this encounter Miscellaneous Notes Telephone Encounter - Porfirio Villegas M.D. - 08/24/2019 1:49 PM CDT Thanks Kitty. I did sent a letter to her PCP regarding the lung nodule. Valentin Telephone Encounter - Kitty Mchugh R.N. - 08/24/2019 10:[address] Villegas's note from his visit with Mrs. Metcalf from 08/18. Contacted GAIL Morelos from Mrs. Metcalf's assisted living; [place], [place]. She was calling seeking verification that we indeed discontinued the flecainide. I confirmed this, and per Dr. Villegas's recommendations there is no scheduled follow-up needed, but should she have recurrence of her arrhythmia that she should contact us. Additionally informed Tamy that there was an incidental finding on her post- ablation CT scan of a lung nodule and that this information was shared with her primary care provider. Viviana wished for me to confirm that Destiny Mckeon is her primary care provider. Tamy mentions that Mrs. Metcalf's blood pressure has been elevated (no specific value provided) and that she is following up with Linda on this issue as well. PLAN Disposition/Recommendation: Continued management of care by assisted living staff. Education: patient/caller able to teach back Caller agreeable to plan of care: yes The following references were used: provider Dr. Villegas note 08/18. Telephone Encounter - Kitty Mchugh R.N. - 08/24/2019 10:25 AM CDT ----- Message from Porfirio Villegas M.D. sent at 08/24/2019 10:08 AM CDT ----- Regarding: call patient's nurse Juan, A nurse from this patient's assisted living facility called with questions for clarification about some clinical notes and the plan after my recent visit with the patient. I tried calling but they are not answering. The nurse's name is Tamy and the number is [phone], ext #[phone]. Would you mind given them a call and see what questions they have? Please let me know if I can clarify anything. Thanks! Valentin documented in this encounter Plan of Treatment Not on filedocumented as of this encounter Visit Diagnoses Not on filedocumented in this encounter Additional Health Concerns Assessment Noted Time PHQ-9 Depression Total Score: 11 05/04/2013 4:05 PM CS T documented as of this encounter Care Teams Hay Stacker Relationship Specialty Start Date End Date Elsewhere, Pcp PCP - General Internal Medicine 07/27/18 documented as of this encounter
--- OUTSIDE RECORDS SUMMARY | 2021-12-27 05:22 | XMS_ITS | Encounter Summary ---
:[address] [facility] Address [address] [place] [address] Care Team Providers Name Role Phone Elsewhere, Pcp Primary Care Provider Unavailable Encounter Details Date Type Department Care Team Description 04/19/2019 Anesthesia Event Division of Cardiovascular Melyssa Lazar, Diseases in [place], BAR MACHINE OPERATOR, CRN [place] [address] [address] [facility] [address] [place] [id number] [phone] Anesthesia Record Procedure Summary Procedure Name Responsible Anesthesiologist Anesthesia Start Ti me Anesthesia Stop Time ABLATION - PVI Amanda Lazar APRN, VAMSI 04/19/19 0853 1414 Events Date Time Event Comment 04/19/2019 0853 An Start Machine/Equipmen t Checked Infection Precautions Foll owed Procedure/Site Verified NPO Sta tus Verified Supine Standard ASA Mon itors Applied 0853 In Room 0906 An Induction 0908 An Intubation 0947 Turnover to Proceduralist 1013 Proc Start 1134 Quick Note Ablating begin 1331 Cardioversion 200 joules synch 1346 Proc Fin 1400 Turnover to ANE Staff 1400 Airway Removal Criteria Met 1409 Extubation/Airway Removed 1409 an stop data 1412 an stop data 1413 an stop data 1414 An End I completed my h andoff to the receiving staff during [facility] we 1. Identified the patient 2. Ident ified the responsible provider 3. Revi ewed the pertinent medical history 4. Discussed the surgical course 5. Review ed intra-op anesthesia management and i ssues during anesthesia 6. Set expectati ons for post-procedure period 7. Allowe d opportunity for questions and ac knowledgement of understanding. 1426 Out of Room Name Total fentaNYL 50 mcg/mL IV injection 250 mcg fentanyl injection 50 mcg/mL 100 mcg propofol 10 mg/mL injection 190 mg propofol 10 mg/mL 40 mg rocuronium 10 mg/mL injection 80 mg vecuronium 10 mg injection 10 mg phenylephrine 100 mcg/mL injection 200 mcg ondansetron 4 mg/2 mL injection 4 mg ceFAZolin 4 g heparin 1,000 units/mL injection 15,000 Units heparin standard 34924 Units/250 mL in D5W infusion 3, 767.08 Units phenylephrine 20 mg/250 mL infusion 2.86 mg furosemide injection 20 mg/2 mL injection 20 mg potassium chloride 10 mEq in 100 mL IVPB 10 mEq adenosine 3 mg/mL injection 27 mg acetaminophen 10 mg/mL injection 1,000 mg Lactated Ringers Free Drip 500 mL lactated ringers free drip 600 mL heparin 2 units/mL for RFA infusion 1,400 mL Agents No agents on file. Blood No blood administrations on file. Lines, Drains, and Airways Type Details Placement Removal (RETIRED) Wound 06/30/18; 1600; Yes; 06/30/18 1600 by 04/20/19 0 000 by Abrasion(s) (Cat Renetta Larose, Valerie Hampton per pt); Arm; Left; R.NEdilma Caballero R.NEdilma scabbed over; 04/20/19; resolved Peripheral IV Placement Date: 01/19/19 1354 by 04/20/19 0000 b y 01/19/19; Placement Yolanda Rosales Webster, J ennifer Time: 1354; Catheter R.N. A, R.N. Size: 20 G; Orientation: Right; Location: Antecubital; Site Prep: Alcohol; Technique: Anatomical landmarks; Inserted by: parvez; Insertion Attempts: 1; Removal Date: 04/20/19; Removal Reason: No longer in place Peripheral IV Placement Date: 04/19/19 0000 by 04/21/19 0852 b y 04/19/19; Orientation: Valerie Jaquez Jard io, Talya Right; Location: Hand; R.Raymond Tapia R, RManjeet. Inserted by: placed prior to start of shift.; Removal Date: 04/21/19; Removal Time: 08; Removal Reason: Per patient/family request Peripheral IV Placement Date: 04/19/19 0000 by 04/21/19 1053 b y 04/19/19; Orientation: Valerie Jaquez, Jard io, Talya Left, Posterior; Lennox Urias R.N. Location: Wrist; Inserted by: placed prior to start of shift.; Removal Date: 04/21/19; Removal Time: 1053 ETT Placement Date: 04/19/19 0908 by 04/19/19 1409 b y 04/19/19; Placement Amanda Lazar APRN, Ryan, S usan L, Time: 907 (created via KELVIN AGUSTIN APRN procedure documentation); Mask Ventilation: Easy mask; Type: Standard ETT; Single Lumen Tube Size: 7 mm; Cuffed: Yes; Location: Oral; Removal Date: 04/19/19; Removal Time: 140 Arterial Line Placement Date: 04/19/19 0930 by 04/21/19 1053 b y 04/19/19; Placemnt Time: Amanda Lazar APRN, Ja rdio, Talya 929 (created via VAMSI Urias R.N. procedure documentation); Orientation: Right; Location: Radial; Site Prep: Chlorhexidine (Preferred); Insertion Attempts: 3; Securement: Securement dressing; Removal Date: 04/21/19; Removal Time: 105 Indwelling Urinary Placement Date: 04/19/19 0938 by 04/19/19 212 1 by Catheter 04/19/19; Placement Verna Lyon Maria A, Time: 937; Type: Latex, R.N. Double-lumen; Size: 16 Fr.; Balloon Size: 10 mL; Urine Returned: Yes; Removal Date: 04/19/19; Removal Time: 2120 Percutaneous Access 04/19/19; 1016; 04/19/19 1016 by 04/21/19 10 53 by Site Temporary (non-tunneled, Dandre Yanez, Melissa io, Talya non-implanted); Venous; R.N. Irelyn R , R.N. Right Femoral; 8 Fr. x 2; Ultrasound; 04/21/19; 1053 Percutaneous Access 04/19/19; 1016; 04/19/19 1016 by 04/21/19 10 53 by Site Temporary (non-tunneled, Domenicum, Dandre A, Jard io, Talya non-implanted); Venous; R.N. Willie Urias R.N. Left Femoral; 8 Fr., 7 Fr., 5 Fr.; Ultrasound; 04/21/19; 1053 documented in this encounter Social History Tobacco Use Types Packs/Day Years [...] or relatives? How often do you attend latter-day or Never 2018 uatsdin services? Do you belong to any clubs or No 02/26/2019 organizations such as latter-day groups, unions, fraternal or athletic groups, or [...] on file documented as of this encounter OR Notes Anesthesia Postprocedure Evaluation - Amanda Lazar APRN, CRNA - 04/19/2019 2:16 PM CST Patient: Iris Metcalf Procedure Summary Date: 04/19/19 Room / Location: [facility] / [facility] Anesthesia Start: 852 Anesthesia Stop: 1413 Procedures: ABLATION - PVI (N/A ) 3D Mapping - Carto (N/A ) Ultrasound guidance for vascular access (N/A ) Intracardiac Echocardiogram (N/A ) Ablation - WACA (N/A ) Ablation - Right Atrial Flutter (N/A ) Diagnosis: Atrial Fibrillation (HCC) Surgeon: Marla Yeager M.B.B.S. Responsible Provider: Amanda Lazar APRN, CRNA Anesthesia Type: general ASA Status: 3 Anesthesia Type: general Last vitals Vitals Value Taken Time BP Temp Pulse Resp SpO2 Please reference Vitals flowsheet for most recent vital signs. Anesthesia Post Evaluation Cardiovascular status: hemodynamics (HR & BP) acceptable Respiratory status: patent airway with spontaneous effort Temperature: normothermic Oxygen requirements: room air Level of consciousness: awake Pain score: pain adequately controlled and/or at baseline Post Op nausea/vomiting: none Hydration status: euvolemic RTISING COORDINATOR Anesthesia Preprocedure Evaluation - Amanda Lazar APRN, CRNA - 04/19/2019 10:58 AM CST Preprocedure Anesthesia & H&P Assessment Procedure Summary Anesthesia Start Date/Time: 04/19/19 0853 Procedures: ABLATION - PVI (N/A ) 3D Mapping - Carto (N/A ) Ultrasound guidance for vascular access (N/A ) Intracardiac Echocardiogram (N/A ) Diagnosis: Atrial Fibrillation (HCC) [I48.91] Location: [place] [address] / [facility] Surgeon: Marla Yeager M.B.B.S. Pertinent components of the patient's history including current problem list, medical history, surgical history, family history, social history, medications and allergies were reviewed. Present illnessand pre-op diagnosis were confirmed. The planned surgery / procedure was verified with the patient /legal guardian. The patient's general health condition remains unchanged PROBLEM LIST Relevant Problems CV (+) Acute On Chronic Diastolic (Congestive) Heart Failure (HCC) (+) Flutter Atrial (HCC) (+) Hypertensive Heart Disease With Heart Failure (HCC) RESP (+) Asthma Mild Persistent (HCC) (+) Asthma NOS ENDO (+) Diabetes Mellitus Type 2 Without Complication (HCC) PSYCH (+) Posttraumatic Stress Disorder Brief GENETICS (+) Diabetes Mellitus Type 2 Without Complication (HCC) (+) Hyperlipidemia Mixed (+) Hyperlipidemia On Treatment MSK/RHEUM (+) Fibromyalgia GI (+) Gastroesophageal Reflux Disease NOS HEME (+) Anemia Iron Deficiency Other (+) Contracture Shoulder Joint Right (+) Primary Osteoarthritis Acromioclavicular Left OBJECTIVE PHYSICAL EXAMINATION Airway (HEENT) Mallampati: I TM Distance: >3 FB Neck ROM: Full Mouth Opening: >3 cm Cardiovascular Rhythm: Irregular Rate: Normal Cardiovascular Assessment: cardiovascular normal Pulmonary Pulmonary Assessment: Clear General / Constitutional Constitutional Assessment: Obese General State of Health:: calm Neurological Neurologic Assessment:??alert Dental Dental Assessment: dentition in poor repair ASSESSMENT / PLAN ANESTHESIA PLAN ASA: 3 Anesthesia Plan: general Patient seen and allergies reviewed, anesthesia plan and risks discussed directly with patient /legal guardian or through an spark plug tester. Risks/Benefits/Alternatives of Blood transfusion discussed with patient / legal guardian, including an opportunity to ask questions and/or decline some or all transfusion therapies. The patient / legalguardian consented to the use of all blood products, as deemed medically necessary Approval to Proceed: approved for anesthesia RTISING COORDINATOR Anesthesia Procedure Notes - Amanda Lazar APRN, CRNA - 04/19/2019 9:50 AM ADVERTISING COORDINATOR Associated Order(s): Airway Airway Date/Time: 04/19/2019 9:08 AM Performed by: Amanda Lazar APRN, CRNA Authorized by: Amanda Lazar APRN, CRNA Patient location during procedure: OR / Procedure Area PROCEDURE DETAILS: Mask difficulty assessment: easy mask Final airway type: video laryngoscope Laryngeal Manipulation: no Final best view of glottic structures - Cormack/Lehane Score: grade 2A ETT location: oral VL device: glide scope [place] scope blade size: 3 Adult tube size: 7 Adult ETT distance at teeth/gum: 20 Oral tube type: standard ETT Cuffed: yes Airway confirmation: bilateral breath sounds, positive ETCO2 and bilateral chest rise Other previous techniques attempted: none PRE PROCEDURE DETAILS: Pre evaluation for airway management: procedure Urgency: elective Preop assessment of probable difficulty: no difficulty anticipated Preoxygenation: bag valve mask SEDATION / ANESTHESIA Anesthesia method: anesthesia POST PROCEDURE DETAILS: Procedure outcome: successful Airway event: no complications Advanced airway technique used for educational purposes: yes RTISING COORDINATOR Anesthesia Procedure Notes - Amanda Lazar APRN, CRNA - 04/19/2019 9:49 AM ADVERTISING COORDINATOR Associated Order(s): Invasive Catheter Invasive Catheter Date/Time: 04/19/2019 9:30 AM Performed by: Amanda Lazar APRN, CRNA Authorized by: Amanda Lazar APRN, CRNA Location: OR PROCEDURE DETAILS: Line type: arterial Laterality: right Location: radial Location details: new site Age group: adult Catheter diameter: 20 Ga Monitored: yes Number of attempts: 3 UNIVERSAL PROTOCOL All relevant documentation and testing were reviewed and available. All required blood products, implants, devices and or special equipment were made available as applicable. Pre-procedure verificationwas conducted and the correct site was marked if required. A fire risk assessment was done as applicable. The procedural time-out was conducted prior to performing the procedure and confirmed in a procedural pause. PRE-PROCEDURE DETAILS: Appropriate hand hygiene, gown, cap, mask, protective eyewear, sterile gloves, skin preparation, sterile drape, and strict aseptic technique were utilized as applicable for the procedure.: yes Skin preparation: chlorhexidine SEDATION / ANESTHESIA Anesthesia method: anesthesia POST-PROCEDURE DETAILS: Procedure completed successfully: yes Line secured: secured with sutureless device Complications - arterial: none RTISING COORDINATOR documented in this encounter Plan of Treatment Not on filedocumented as of this encounter Procedures Procedure Name Priority Date/Time Associated Comments Diagnosis LDA ANE ENDOTRACHEAL Routine 04/19/2019 9:50 AM R esults for this AIRWAY ADVERTISING COORDINATOR procedure are i n the results section. LDA ANE ARTERIAL LINE Routine 04/19/2019 9:49 AM Results for this INSERTION ADVERTISING COORDINATOR procedure are i n the results section. TX ARTL CATH/CNULA Routine 04/19/2019 9:49 AM Res ults for this MONITOR PERC ADVERTISING COORDINATOR procedure are i n the results section. documented in this encounter Results LDA ANE ENDOTRACHEAL AIRWAY (04/19/2019 9:50 AM ADVERTISING COORDINATOR) Narrative Amanda Lazar APRN, CRNA - 04/19/2019 9 :50 AM ADVERTISING COORDINATOR Amanda Lazar APRN, CRNA ? 04/19/2019 ??9:52 AM Airway Date/Time: 04/19/2019 9:08 AM Performed by: Amanda Lazar APRN, CRNA Authorized by: Amanda Lazar APRN, CRNA Patient location during procedure: OR / Procedure Area PROCEDURE DETAILS: Mask difficulty assessment: easy mask Final airway type: video laryngoscope Laryngeal Manipulation: no ?? Final best view of glottic structures - Cormack/Lehane Score: grade 2A ETT location: oral VL device: glide scope [place] scope blade size: 3 Adult tube size: 7 Adult ETT distance at teeth/gum: 20 Oral tube type: standard ETT Cuffed: yes Airway confirmation: bilateral breath so unds, positive ETCO2 and bilateral chest rise Other previous techniques attempted: non e PRE PROCEDURE DETAILS: Pre evaluation for airway management: pr ocedure Urgency: elective Preop assessment of probable difficulty: no difficulty anticipated Preoxygenation: bag valve mask SEDATION / ANESTHESIA Anesthesia method: anesthesia POST PROCEDURE DETAILS: ? Procedure outcome: successful ?? Airway event: no complications Advanced airway technique used for educa tional purposes: yes Amanda Lazar APRN, CRNA ANESTHESIA ORDERABLES TX ARTL CATH/CNULA MONITOR PERC, LDA ANE ARTERIAL LINE INSERTION (04/19/2019 9:49 AM ADVERTISING COORDINATOR) Narrative Amanda Lazar APRN, CRNA - 04/19/2019 9 :49 AM ADVERTISING COORDINATOR Amanda Lazar APRN, CRNA ? 04/19/2019 ??9:50 AM Invasive Catheter Date/Time: 04/19/2019 9:30 AM Performed by: Amanda Lazar APRN, CRNA Authorized by: Amanda Lazar APRN, CRNA Location: OR PROCEDURE DETAILS: Line type: arterial ?? Laterality: right Location: radial Location details: new site ? Age group: adult Catheter diameter: 20 Ga Monitored: yes ?? Number of attempts: 3 UNIVERSAL PROTOCOL All relevant documentation and testing w ere reviewed and available. All required blood products, implants, devic es and or special equipment were made available as applicable. Pre-proced ure verification was conducted and the correct site was marked if required. A fire risk assessment was done as applicable. The procedural time-out w as conducted prior to performing the procedure and confirmed in a procedu ral pause. PRE-PROCEDURE DETAILS: Appropriate hand hygiene, gown, cap, mas k, protective eyewear, sterile gloves, skin preparation, sterile drape, and strict aseptic technique were utilized as applicable for the procedure .: yes ?? Skin preparation: chlorhexidine ?? SEDATION / ANESTHESIA Anesthesia method: anesthesia POST-PROCEDURE DETAILS: Procedure completed successfully: yes ?? Line secured: secured with sutureless de vice Complications - arterial: none Amanda L Nagi BAR MACHINE OPERATOR, SENIOR GRADUATE ADVISOR PROCEDURE/MINOR SURGICAL ORD ERABLES documented in this encounter Visit Diagnoses Not on filedocumented in this encounter Administered Medications Inactive Administered Medications - up to 3 most recent administrations Medication Order MAR Action Action Date Dose Rate Site acetaminophen injection Given 04/19/2019 1:56 PM ADVERTISING COORDINATOR 1,000 mg (OFIRMEV) Administer over 15 Minutes, As needed, Starting on Fri04/19/19 at 1356, Anesthesia Intra-op adenosine injection (ADENOCARD) Given 04/19/2019 1:09 PM ADVERTISING COORDINATOR 9 mg As needed, Starting on Fri04/19/19 at 1301, Anesthesia Intra-op Given 04/19/2019 1:07 PM ADVERTISING COORDINATOR 9 mg Given 04/19/2019 1:01 PM ADVERTISING COORDINATOR 9 mg ceFAZolin injection (ANCEF) Given 04/19/2019 1:20 PM ADVERTISING COORDINATOR 2 g As needed, Starting on Fri04/19/19 at 1027, Anesthesia Intra-op Given 04/19/2019 10:27 AM ADVERTISING COORDINATOR 2 g fentaNYL injection (SUBLIMAZE) Given 04/19/2019 1:50 PM ADVERTISING COORDINATOR 50 mcg As needed, Starting on Fri04/19/19 at 0906, Anesthesia Intra-op Given 04/19/2019 11:34 AM ADVERTISING COORDINATOR 50 mcg Given 04/19/2019 9:56 AM ADVERTISING COORDINATOR 50 mcg fentaNYL injection (SUBLIMAZE) Given 04/19/2019 10:08 AM ADVERTISING COORDINATOR 100 mcg intravenous, As needed, Starting on Fri04/19/19 at 1008, Anesthesia Intra-op furosemide injection (LASIX) Given 04/19/2019 11:41 AM ADVERTISING COORDINATOR 20 mg As needed, Starting on Fri04/19/19 at 1141, Anesthesia Intra-op heparin (porcine) 1,000 unit/mL Given 04/19/2019 12:02 PM ADVERTISING COORDINATOR 3, 000 Units injection As needed, Starting on Fri04/19/19 at 1024, Anesthesia Intra-op Given 04/19/2019 11:12 AM ADVERTISING COORDINATOR 2,000 Units Given 04/19/2019 10:24 AM ADVERTISING COORDINATOR 10,000 Units heparin (porcine) 100 Rate/Dose 04/19/2019 12:55 13 Units/kg/hr 12.8 mL/hr Units/mL in D5W 250 mL Change PM ADVERTISING COORDINATOR infusion Continuous Infusion: Per Instructions PRN, Starting on Fri04/19/19 at 1030, Anesthesia Intra-op Rate/Dose Change 04/19/2019 12:01 PM ADVERTISING COORDINATOR 14 Units/kg/hr 13.8 mL/hr Rate/Dose Change 04/19/2019 11:12 AM ADVERTISING COORDINATOR 12 Units/kg/hr 11.8 mL/hr heparin infusion 2 units/mL in NaCl New Bag 04/19/2019 1:28 PM ADVERTISING COORDINATOR Continuous Infusion: Per Instructions PRN, Starting on Fri04/19/19 at 1212, Anesthesia Intra-op New Bag 04/19/2019 12:12 PM ADVERTISING COORDINATOR lactated ringers New Bag 04/19/2019 8:50 AM ADVERTISING COORDINATOR intravenous, Continuous Infusion: Per Instructions PRN, Starting on Fri04/19/19 at 0850, Anesthesia Intra-op lactated ringers New Bag 04/19/2019 9:23 AM ADVERTISING COORDINATOR intravenous, Continuous Infusion: Per Instructions PRN, Starting on Fri04/19/19 at 0923, Anesthesia Intra-op ondansetron (PF) injection (ZOFRAN) Given 04/19/2019 10:31 AM ADVERTISING COORDINATOR 4 mg intravenous, As needed, Starting on Fri04/19/19 at 1031, Anesthesia Intra-op phenylephrine 80 mcg/mL in Rate/Dose 04/19/2019 1:21 0.1 mcg/kg/min 7.38 mL/hr NaCl 0.9% 250 mL infusion Change PM ADVERTISING COORDINATOR Continuous Infusion: Per Instructions PRN, Starting on Fri04/19/19 at 1029, Anesthesia Intra-op Rate/Dose Change 04/19/2019 1:11 PM ADVERTISING COORDINATOR 0.2 mcg/kg/min 14.8 mL/hr Rate/Dose Change 04/19/2019 1:06 PM ADVERTISING COORDINATOR 0.3 mcg/kg/min 22.1 mL/hr phenylephrine injection Given 04/19/2019 1:44 PM ADVERTISING COORDINATOR 100 mcg intravenous, As needed, Starting on Fri04/19/19 at 1341, Anesthesia Intra-op Given 04/19/2019 1:41 PM ADVERTISING COORDINATOR 100 mcg potassium chloride IVPB Given 04/19/2019 11:48 AM ADVERTISING COORDINATOR 10 mEq Administer over 60 Minutes, As needed, Starting on Fri04/19/19 at 1148, Anesthesia Intra-op propofol injection (DIPRIVAN) Given 04/19/2019 9:33 AM ADVERTISING COORDINATOR 30 mg As needed, Starting on Fri04/19/19 at 0906, Anesthesia Intra-op Given 04/19/2019 9:18 AM ADVERTISING COORDINATOR 40 mg Given 04/19/2019 9:06 AM ADVERTISING COORDINATOR 120 mg propofol injection (DIPRIVAN) Given 04/19/2019 10:35 AM ADVERTISING COORDINATOR 40 mg intravenous, As needed, Starting on Fri04/19/19 at 1035, Anesthesia Intra-op rocuronium injection (ZEMURON) Given 04/19/2019 10:27 AM ADVERTISING COORDINATOR 30 mg As needed, Starting on Fri04/19/19 at 0906, Anesthesia Intra-op Given 04/19/2019 9:06 AM ADVERTISING COORDINATOR 50 mg vecuronium injection (NORCURON) Given 04/19/2019 9:06 AM ADVERTISING COORDINATOR 10 mg As needed, Starting on Fri04/19/19 at 0906, Anesthesia Intra-op documented in this encounter Additional Health Concerns Assessment Noted Time PHQ-9 Depression Total Score: 11 05/04/2013 4:05 PM CS T documented as of this encounter Care Teams Core Piler Relationship Specialty Start Date End Date Elsewhere, Pcp PCP - General Internal Medicine 07/27/18 documented as of this encounter
--- OUTSIDE RECORDS SUMMARY | 2021-12-27 05:22 | XMS_ITS | Encounter Summary ---
:1955 Author Organization [facility] Address [address] [place] [address] Care Team Providers Name Role Phone Elsewhere, Pcp Primary Care Provider Unavailable Reason for Referral Outpatient (Routine) - Closed Specialty Diagnoses / Procedures Referred By Contact Refer red To Contact Diagnoses Atrial Fibrillation [facility] Transesophageal (MICHAEL) RolandoB[facility] [address] [place], [place] [address] Referral ID Status Reason Start Date Expiration Date Visits Requ ested Visits Authorized [id number] Closed 04/19/2019 04/18/2020 1 1 R DIPPER Reason for Visit Outpatient (Routine) - Closed Specialty Diagnoses / Procedures Referred By Contact Refer red To Contact Diagnoses Atrial Fibrillation Unspecified Marla Yeager [facility] Procedures Echo Transesophageal (MICHAEL) MShaan.B.S. [address] [place], [place] [address] Referral ID Status Reason Start Date Expiration Date Visits Requ ested Visits Authorized [id number] Closed 04/19/2019 04/18/2020 1 1 Encounter Details Date Type Department Care Team Description 04/19/2019 Hospital Encounter Department of Liseth Yeager F ibrillation Cardiovascular Diseases Marla ([facility] ) in [facility] Patricia[facility] [address] [facility] [address] [place] [id number] [phone] Social History Tobacco Use Types Packs/Day Years [...] or relatives? How often do you attend jehovah's witness or Never 2018 restorationism services? Do you belong to any clubs or No 02/26/2019 organizations such as jehovah's witness groups, unions, fraternal or athletic groups, or [...] 200-200-20 needed for mg/5 mL suspension indigestion. clotrimazole-betametha Apply 1 application 0 sone (LOTRISONE) topically 2 (two) 1-0.05 % cream times a day. famotidine (PEPCID) 10 Take 20 mg by mouth. 0 mg tablet levothyroxine Take 25 mcg by mouth 0 (SYNTHROID, every morning before LEVOTHROID) 25 mcg breakfast. tablet rizatriptan (MAXALT) 5 Take 1 tablet (5 mg 9 tablet 0 06/22 mg tablet total) by mouth as needed for migraine. simvastatin (ZOCOR) 20 Take 1 tablet (20 mg 0 mg tablet total) by mouth at bedtime. Hyperlipidemia flecainide (TAMBOCOR) Take 1 tablet (100 mg 180 tablet 1 100 mg tablet total) by mouth 2 (two) times a day. methyl Apply 1 application 0 salicylate-menthol topically [...] tablet minutes as needed for chest pain. SENNOSIDES ORAL Take 1 tablet by mouth 0 as needed. Systane, propylene daily. 0 03/24/2019 glycol, 0.4-0.3 % ophthalmic solution aspirin [address] Take 81 mg by mouth 0 08/19/2019 tablet daily. digoxin (LANOXIN) 250 Take 250 mcg by mouth 0 04/21/2019 mcg tablet daily. DULoxetine (CYMBALTA) Take 1 capsule [...] a day with meals. For Diabetes Mellitus metoprolol tartrate Take 2 tablets (100 mg 0 06/2204/21/2019 (LOPRESSOR) 50 mg total) by mouth 2 tablet (two) times a day. For heart rate control. warfarin (COUMADIN) 5 Take 1 tablet (5 mg 30 tablet 0 07/2304/21/2019 mg tablet total) by mouth daily. For left atrial thrombus; INR goal 2.5-3.5. Next INR check on 07/24/18, to take as directed with INR recheck week of 07/27/18, resume management as per previous homegoing care plan. omeprazole (PriLOSEC) Take 1 capsule (40 mg 30 capsule 0 05/22/[address] capsule total) by mouth every morning before breakfast. Stop on 05/22/2019 polyethylene glycol Take 1 packet (17 g 60 packet 11 019 12/11/2019 (MIRALAX) 17 gram total) by mouth 2 powder packet (two) times a day. Dissolve each 17 g dose in 240 mLs (8 ounces) of beverage. acetaminophen Take 2 tablets (1,000 0 04/21/2019 08/19/2019 (TYLENOL) 500 mg mg total) by mouth tablet every 6 (six) hours as needed for pain. topiramate (TOPAMAX) Take 1 tablet (25 mg 0 07/0608/19/2019 25 mg tablet total) by mouth 2 (two) times a day. For headaches. warfarin (COUMADIN) 5 Take 1 tablet (5 mg 30 tablet 0 04/2108/19/2019 mg tablet total) by mouth daily. INR goal 2.5-3.5(atrial thrombus). Take 5mg Sun,,Wed,Fri,Sat warfarin (COUMADIN) 6 Take 6 mg by mouth. 0 04/21/2019 mg tablet Take as directed per After Visit Summary. Friday, warfarin (COUMADIN) 6 Take 1 tablet (6 mg 0 04/2108/19/2019 mg tablet total) by mouth daily. Take 6mg on Fri/ documented as of this encounter Plan of Treatment Not on filedocumented as of this encounter Procedures Procedure Name Priority Date/Time Associated Diagnosis Comme nts (MICHAEL) 2D WITH COLOR Routine 04/19/2019 11:49 Atrial Fibrillati on Results for this AND LIMITED DOPPLER AM COLOR DIPPER (HCC) procedur e are in the results section. documented in this encounter Results (MICHAEL) 2D WITH COLOR AND LIMITED DOPPLER (04/19/2019 11:49 AM COLOR DIPPER) Anatomical Region Laterality Modality Other Specimen (Source) Anatomical Collection Method Collection Time Re ceived Time Location / / Volume Laterality 04/19/2019 10:15 AM COLOR DIPPER Narrative 04/20/2019 7:51 AM COLOR DIPPER For the complete report, see the Order-L evel Documents below. Final Impressions 1. INTERVENTIONAL TRANSESOPHAGEAL ECHOCA RDIOGRAM (in [facility] Room 112): 2. No intracardiac thrombus. No left atr ial appendage thrombus. ??Atrial septum intact. 3. Prominent pectinate muscles and small aberrant transverse chord in left atrial appendage. 4. Moderate mitral valve regurgitation; severe left atrial enlargement. 5. Normal pulmonary veins with variant a natomy: three veins on left, two veins on right. 6. Aortic valve sclerosis; mild aortic v alve regurgitation. 7. Normal left size; normal systolic fun ction; estimated ejection fraction 60%. 8. Mild-moderate tricuspid valve regurgi tation; severe right atrial enlargement. 9. Normal right ventricular size; mildly decreased systolic function. Normal pulmonary valve. 10. Tiny pericardial effusion. Very mild fixed atherosclerosis of thoracic aorta. For the complete report, see the Order-L evel Documents below. Procedure Note Jr Miles M.D. - 04/20/2019Form atting of this note might be different from the original. For the complete report, see the Order-L evel Documents below. Final Impressions 1. INTERVENTIONAL TRANSESOPHAGEAL ECHOCA RDIOGRAM (in [facility] Room 112): 2. No intracardiac thrombus. No left atr ial appendage thrombus. Atrial septum intact. 3. Prominent pectinate muscles and small aberrant transverse chord in left atrial appendage. 4. Moderate mitral valve regurgitation; severe left atrial enlargement. 5. Normal pulmonary veins with variant a natomy: three veins on left, two veins on right. 6. Aortic valve sclerosis; mild aortic v alve regurgitation. 7. Normal left size; normal systolic fun ction; estimated ejection fraction 60%. 8. Mild-moderate tricuspid valve regurgi tation; severe right atrial enlargement. 9. Normal right ventricular size; mildly decreased systolic function. Normal pulmonary valve. 10. Tiny pericardial effusion. Very mild fixed atherosclerosis of thoracic aorta. For the complete report, see the Order-L evel Documents below. Marla Pham CV ECHO PROCEDURES documented in this encounter Visit Diagnoses Diagnosis Atrial Fibrillation Unspecified documented in this encounter Additional Health Concerns Assessment Noted Time PHQ-9 Depression Total Score: 11 05/04/2013 4:05 PM CS T documented as of this encounter Care Teams Assistant Women'S Soccer Coach Relationship Specialty Start Date End Date Elsewhere, Pcp PCP - General Internal Medicine 07/27/18 documented as of this encounter
--- OUTSIDE RECORDS SUMMARY | 2021-12-27 05:22 | XMS_ITS | Encounter Summary ---
:1955 Author Organization [facility] Address [address] [place] [address] Care Team Providers Name Role Phone Elsewhere, Pcp Primary Care Provider Unavailable Reason for Visit Reason Onset Date Comments Follow-up 05/18/2019 Encounter Details Date Type Department Care Team Description 05/18/2019 Clinical Communication Outpatient Surgery and Jovani Ingram, Follow-up Procedural Admissions R.NEdilma, CCRN in [place], [facility] [address] [place], [place] [address] [place] [address] [place], [place] [phone] (Work) [phone] Social History Tobacco Use Types Packs/Day Years [...] do you attend religion or Never 2018 adventism services? Do you belong to any clubs [...] documented as of this encounter Care Teams Burnisher Relationship Specialty Start Date End Date Elsewhere, Pcp PCP - General Internal Medicine 07/27/18 documented as of this encounter
--- OUTSIDE RECORDS SUMMARY | 2021-12-27 05:22 | XMS_ITS | Encounter Summary ---
:1955 Author Organization [facility] Address [address] [place] [id number] Care Team Providers Name Role Phone Elsewhere, Pcp Primary Care Provider Unavailable Encounter Details Date Type Department Care Team Description 07/06/2019 Clinical Communication Department [facility] Cardiovascular Medicine Por[facility]io [facility] nasim Kellogg [address] [facility] [address] [place] [address] [place], [place] [phone] Social History Tobacco Use Types Packs/Day [...] do you attend mormonism or Never 2018 caodaism services? Do you [...] Telephone Encounter - Rosemarie Quezada R.N. - 07/06/2019 2:46 PM CDT We would defer overall health decisions to her primary provider documented in this encounter Plan of Treatment Not on filedocumented as of this encounter Visit Diagnoses Not on filedocumented in this encounter Additional Health Concerns Assessment Noted Time PHQ-9 Depression Total Score: 11 05/04/2013 4:05 PM CS T documented as of this encounter Care Teams Wastewater Process Engineer Relationship Specialty Start Date End Date Elsewhere, Pcp PCP - General Internal Medicine 07/27/18 documented as of this encounter
--- OUTSIDE RECORDS SUMMARY | 2021-12-27 05:22 | XMS_ITS | Encounter Summary ---
:1955 Author Organization [facility] Address [address] [place] [address] Care Team Providers Name Role Phone Elsewhere, Pcp Primary Care Provider Unavailable Reason for Referral Outpatient (Routine) - Closed Specialty Diagnoses / Procedures Referred By Referred To Contact Contact Cardiovascular Diseases / Diagnoses Flutter Atrial (HCC) Atrial Fibrillation Paroxysmal (HCC) Tucker Rutherford [facility] Cardiovascular Disease P.A.-C. [address] [place] [address] Referral ID Status Reason Start Date Expiration Date Visits Requ ested Visits Authorized [id number] Closed 04/21/2019 04/20/2020 1 1 LFISH GROWER MRI/CAT/PET Scan (Routine) - Closed Specialty Diagnoses / Procedures Referred By Contact Refer red To Contact Radiology Diagnoses Flutter Atrial (HCC) Atrial Fibrillation Paroxysmal (HCC) Tucker Rutherford P.A.-Kadeem [facility] Procedures CT Cardiac Angiogram Pulmonary Veins with IV [address] [place] [address] Referral ID Status Reason Start Date Expiration Date Visits Requ ested Visits Authorized [id number] Closed 04/21/2019 04/20/2020 1 1 LFISH GROWER Outpatient (Routine) - Closed Specialty Diagnoses / Procedures Referred By Contact Refer red To Contact Diagnoses Flutter Atrial (HCC) Atrial Fibrillation Paroxysmal (HCC) Tucker Rutherford P.A.-C. [facility] Procedures ECG 12 Lead [address] [place] [address] Referral ID Status Reason Start Date Expiration Date Visits Requ ested Visits Authorized [id number] Closed 04/21/2019 04/20/2020 1 1 LFISH GROWER Outpatient (Routine) - Closed Specialty Diagnoses / Procedures Referred By Contact Refer red To Contact Diagnoses Flutter Atrial (HCC) Atrial Fibrillation Paroxysmal (HCC) Tucker Rutherford P.A.-C. [facility] Procedures ECG Heart rhythm monitor (Holter) [address] [place], [place] [address] Referral ID Status Reason Start Date Expiration Date Visits Requ ested Visits Authorized [id number] Closed 04/21/2019 04/20/2020 1 1 LFISH GROWER Outpatient (Routine) - Closed Specialty Diagnoses / Procedures Referred By Contact Refer red To Contact Diagnoses Flutter Atrial (HCC) Atrial Fibrillation Paroxysmal (HCC) Tucker Rutherford P.A.-C. [facility] Procedures Echo Transthoracic (TTE) [address] [place] [address] Referral ID Status Reason Start Date Expiration Date Visits Requ ested Visits Authorized [id number] Closed 04/21/2019 04/20/2020 1 1 LFISH GROWER Encounter Details Date Type Department Care Team Description 04/19/2019 - Hospital Encounter [facility] Shobha, Flutter A trial (HCC) (Primary Dx); 04/21/2019 [facility], Fibrillation Atrial (HCC); [facility] Atrial Fibrillation Paroxysmal (HCC) [facility], [address] [facility] Fourth Floor [place], [place] [address] [facility] [address] [place], [place] [phone] (Work) [phone] Social History Tobacco Use Types Packs/Day Years [...] do you attend lutheran or Never 2018 christian services? Do you belong to any clubs [...] Sign Reading Time Taken Comments Blood Pressure 137/84 04/21/2019 8:30 AM SHELLF[facility] GROWER Pulse 78 04/21/2019 8:30 AM SHELLF[facility] GROWER Temperature 37.5 ??C (99.5 ??F) 04/21/2019 8:15 AM SHELLFISH GROWER Respiratory Rate 22 04/21/2019 11:15 AM SHELLF[facility] GROWER Oxygen Saturation 91% 04/21/2019 8:30 AM SHELLFISH GROWER Inhaled Oxygen Concentration - - Weight 98.3 kg (216 lb 11.4 oz) 04/21/2019 3:00 AM SHELLFISH GROWER Height 165.6 cm (5' 5.2) 04/19/2019 8:35 AM SHELLFISH GROWER Body Mass Index 35.85 04/19/2019 8:35 AM SHELLFISH GROWER documented in this encounter Discharge Summaries Tucker Rutherford P.A.-C. - 04/21/2019 10:04 AM CST Images from the original note were not included. DISCHARGE SUMMARY BRIEF OVERVIEW Discharge Provider: Marla Yeager M.B.B.SEdilma Primary Care Providers: Elsewhere, Pcp (General) [address] [facility] [address] Primary Care Provider Phone Number: None Primary Care Provider Fax Number: None Other Providers: Patient Care Team: Elsewhere, Pcp as PCP - General (Internal Medicine) Kandace Mckeon D.O. as External Primary Care Physician (Family Medicine) Oralia Ricks APRN C.NEdilmaPEdilma as Nurse Practitioner (Cardiovascular Diseases) Porfirio Villegas M.D. as Fellow (Cardiovascular Diseases Electrophysiology) Tai Johnston M.D. as External Primary Care Physician (Family Medicine) Admission Date: 04/19/2019 Discharge Date: 04/21/2019 PRINCIPAL DIAGNOSIS Hospital Problems as of 04/21/2019 1. * (Principal) Atrial Fibrillation Paroxysmal (HCC) Status post catheter ablation of atrial fibrillation and atrial flutter April 19, 2019. 2. Flutter Atrial (HCC) Status post typical flutter ablation performed by Dr. Yeager on 04/20/2019 3. Hypertension Essential Primary 4. Apnea Sleep Obstructive 5. Diabetes Mellitus Type 2 Without Complication (HCC) 6. Anticoagulant Therapy 7. Dysfunction Sinus Node (HCC) DISCHARGE DISPOSITION Home CONDITION AT DISCHARGE Stable DISCHARGE MEDICATIONS Discharge Medications TAKE these medications acetaminophen 500 mg tablet Commonly known as: TYLENOL Take 2 tablets (1,000 mg total) by mouth every 6 (six) hours as needed for pain. albuterol 90 mcg/actuation inhaler Commonly known as: ProAir HFA Inhale 1-2 puffs every 4 (four) hours as needed for shortness of breath. alum-mag hydroxide-simeth 200-200-20 mg/5 mL suspension Commonly known as: MAALOX Take 15-30 mL by mouth every 6 (six) hours as needed for indigestion. aspirin [address] tablet Take 81 mg by mouth daily. clotrimazole-betamethasone 1-0.05 % cream Commonly known as: LOTRISONE Apply 1 application topically 2 (two) times a day. DULoxetine [address] capsule Commonly known as: CYMBALTA Take 1 capsule (30 mg total) by mouth 2 (two) times a day. For Fibromyaligia famotidine 20 mg tablet Commonly known as: PEPCID Take 20 mg by mouth daily. ferrous sulfate 325 mg (65 mg iron) DR tablet Take 1 tablet (65 mg of iron total) by mouth daily. For anemia flecainide 100 mg tablet Commonly known as: TAMBOCOR Take 1 tablet (100 mg total) by mouth 2 (two) times a day. fluticasone furoate 100 mcg/actuation diskus inhaler Commonly known as: Arnuity Ellipta Inhale 1 puff daily. Asthma furosemide 20 mg tablet Commonly known as: LASIX Take 20 mg by mouth daily. levothyroxine 25 mcg tablet Commonly known as: SYNTHROID, LEVOTHROID Take 25 mcg by mouth every morning before breakfast. metFORMIN 500 mg tablet Commonly known as: GLUCOPHAGE Take 1 tablet (500 mg total) by mouth 2 (two) times a day with meals. For Diabetes Mellitus methyl salicylate-menthol ointment Commonly known as: BENGAY Apply 1 application topically every 2 (two) hours as needed for muscle/joint pain. metoprolol tartrate 50 mg tablet Commonly known as: LOPRESSOR Take 1 tablet (50 mg total) by mouth 2 (two) times a day. For heart rate control. nitroglycerin 0.4 mg SL tablet Commonly known as: NITROSTAT Place 0.4 mg under the tongue every 5 (five) minutes as needed for chest pain. omeprazole [address] capsule Commonly known as: PriLOSEC Start taking on: April 22, 2019 Take 1 capsule (40 mg total) by mouth every morning before breakfast. Stop on 05/22/2019 polyethylene glycol 17 gram powder packet Commonly known as: MIRALAX Take 1 packet (17 g total) by mouth 2 (two) times a day. Dissolve each 17 g dose in 240 mLs (8 ounces) of beverage. rizatriptan 5 mg tablet Commonly known as: MAXALT Take 1 tablet (5 mg total) by mouth as needed for migraine. SENNOSIDES ORAL Take 1 tablet by mouth as needed. simvastatin 20 mg tablet Commonly known as: ZOCOR Take 1 tablet (20 mg total) by mouth at bedtime. Hyperlipidemia Systane (propylene glycol) 0.4-0.3 % ophthalmic solution daily. Generic drug: peg 400-propylene glycol topiramate 25 mg tablet Commonly known as: TOPAMAX Take 1 tablet (25 mg total) by mouth 2 (two) times a day. For headaches. * warfarin 5 mg tablet Commonly known as: COUMADIN Take 1 tablet (5 mg total) by mouth daily. INR goal 2.5-3.5(atrial thrombus). Take 5mg Sun,Tues,Wed,Fri,Sat * warfarin 6 mg tablet Commonly known as: COUMADIN Take 1 tablet (6 mg total) by mouth daily. Take 6mg on * There are duplicate medications prescribed to the patient DIAGNOSTICS Results from last 7 days Lab Units 04/21/19 0604/20/19 0634 04/19/19 14104/19/19 1046 WBC x10(9)/L 11.7* 12.0* -- -- 9.0 HEMOGLOBIN g/dL 12.1 12.7 -- -- 13.6 HEMATOCRIT % 38.0 39.4 -- -- 40.1 POC HEMATOCRIT % -- -- 36.0 < > -- MCV fL 94.3 95.2 -- -- 90.7 PLATELETS AUTO x10(9)/L 296 362 -- -- 359 < > = values in this interval not displayed. Results from last 7 days Lab Units 04/21/19 0604/19/19 1612 04/19/19 14104/19/19 1046 SODIUM P mmol/L -- -- -- -- -- -- 139 POC SODIUM mmol/L -- -- -- -- 137 < > -- POTASSIUM P -- -- -- < > -- -- 3.6 POTASSIUM mmol/L 5.0 < > -- -- -- -- -- CHLORIDE P mmol/L -- -- -- -- -- -- 100 CREATININE mg/dL 0.85 < > -- -- -- -- -- CREATININE P mg/dL -- -- -- -- -- -- 0.76 CRTS1 EGFR NON BLACK mL/min/BSA 74 < > -- -- -- -- -- CREP2 EGFR P mL/min/BSA -- -- -- -- -- -- 84 BUN P mg/dL -- -- -- -- -- -- 12 BUN mg/dL 13 < > -- -- -- -- -- ANION GAP P -- -- -- -- -- -- 14 POC GLUCOSE mg/dL -- -- 230* -- -- < > -- GLUCOSE P mg/dL -- -- -- -- -- -- 210* CALCIUM P mg/dL -- -- -- -- -- -- 8.8 < > = values in this interval not displayed. Results from last 7 days Lab Units 04/21/19 0615 04/20/19 0634 04/19/19 1542 MAGNESIUM mg/dL 2.0 2.1 1.5* Results from last 7 days Lab Units 04/21/19 0615 04/20/19 0634 04/19/19 1453 PROTHROMBIN TIME PTLTP sec 28.6* 23.1* -- PROTHROMBIN TIME ILPT sec -- -- 29.8* INR 2.6 2.1 2.7 Ecg 12 Lead Result Date: 04/21/2019 Normal sinus rhythm with 1st degree A-V block Rightward axis Nonspecific ST and T wave abnormality When compared with ECG of 20-APR-2019 22:44, ST and T waves have changed QRS axis has changed Reviewed by SPENCER Doshi Ecg 12 Lead Result Date: 04/21/[address] and T wave abnormality, consider inferolateral ischemia When compared with ECG of 20-APR-2019 06:42, No significant change was found Reviewed by SPENCER Chandler Ecg 12 Lead Result Date: 04/20/2019 Normal sinus rhythm Rightward axis ST and T wave abnormality, consider inferolateral ischemia When compared with ECG of 16-APR-2019 10:49, Sinus rhythm has replaced Atrial fibrillation Reviewed by SPENCER Zimmerman H[facility] COURSE Iris Metcalf was discharged from [facility] following an ablation performed by Dr. Yeager for atrial fibrillation and typical atrial flutter. There were no intraoperative complications. After the ablation anticoagulation with Coumadin was resumed at her prehospitalization dose and schedule. INR goal is 2.5-3.5 due to history of left atrial thrombus. INR at discharge was therapeutic at2.6. She was instructed to have her INR rechecked on 04/23/2019. Metoprolol tartrate was reduced to 50 mg twice a day. Digoxin was discontinued. Flecainide 100 mg twice a day was initiated post ablation. Serial ECGs were performed while hospitalized and showed no proarrhythmia or excessive QRS widening. She was fluid volume overloaded and had high atrial pressures during her procedure. She was diuresedwith IV Lasix while hospitalized at her home dose of 20 mg of Lasix daily was resumed at discharge. She was asymptomatic from a respiratory standpoint at discharge. Prilosec 40 mg daily for 1 month was started for atrial esophageal fistula prophylaxis. Prior to discharge shewas able to ambulate, eat, drink, and void without difficulty. Site care, activity, work, and driving restrictions were all reviewed prior to discharge. PHYSICAL EXAM Constitutional General: She is not in acute distress. Appearance: She is not diaphoretic. Cardiovascular Rate and Rhythm: Normal rate and regular rhythm. Pulses: Normal pulses. Heart sounds: Normal heart sounds. No murmur. No friction rub. Pulmonary Effort: Pulmonary effort is normal. No respiratory distress. Breath sounds: Normal breath sounds. No wheezing or rales. Musculoskeletal Normal range of motion. Comments: Distal circulation, sensation, and motor function are grossly intact in bilateral upper and lower extremities. Skin General: Skin is warm and dry. Neurological Mental Status: She is oriented to person, place, and time. Mental status is at baseline. Wounds: Right and left femoral access sites are without active bleeding, drainage, hematoma, or bruit. OUTPATIENT FOLLOW UP INR should be rechecked locally on 04/23/2019. Follow-up will occur in approximately 3 months at [facility] in [facility]. Testing at that time will include a 24 hr Holter monitor, ECG, echocardiogram, and cardiac Ct. Patient was also instructed to follow up with Primary Care locally in the next 7-10 days for post hospital follow up. Discharge instructions were provided to the patient and caregiver(s). Juan J Rutherford P.A.-C. LFISH GROWER documented in this encounter Discharge Instructions Discharge InstructionsHiTucker fish P.A.-C. - 04/21/2019 11:05 AM [facility]LL[facility] GROWER Hospital Problems as of 04/21/2019 1. * (Principal) Atrial Fibrillation Paroxysmal (HCC) Status post catheter ablation of atrial fibrillation and atrial flutter April 19, 2019. 2. Flutter Atrial (HCC) Status post typical flutter ablation performed by Dr. Yeager on 04/20/2019 3. Hypertension Essential Primary 4. Apnea Sleep Obstructive Her son will collect her CPAP machine from home later this week and bring to the facility. 5. Diabetes Mellitus Type 2 Without Complication (HCC) 6. Anticoagulant Therapy 7. Dysfunction Sinus Node (HCC) Activity Restrictions: For 7 days after the procedure do not - lift, push, or pull more than 5-10lbs - do strenuous exercise (biking, weight lifting, aerobics, golfing) - strain - participate in sexual activity - do not submerge the wound sites, you may shower Driving Restrictions: -do not drive for 24 hours after discharge from the hospital Recurrence of your Arrhythmia: In the first three months after ablation it is not uncommon for patients to experience transient recurrence of their arrhythmias. Should you have sustained recurrence of your arrhythmia that last more than 24-48 hours; or symptoms become intolerable, you should seek immediate medical attention with your local providers and get an ECG. Seek Emergent Medical Treatment for: Chest pain, passing out, stroke symptoms, shortness of breath, recurrence of your arrhythmia with symptoms that are severe, temperature greater than 101.4, or excessive/prolonged bleeding events. Atrial esophageal fistula is a late complication after ablation. If you experience new difficulty swallowing, pain while swallowing, esophageal bleeding, fever of unclear etiology, or stroke-like symptoms, which may occur 1- 4 weeks post-procedure please seek immediate medical attention at your nearest local Emergency Department. Care of your Puncture Sites: Bandages may be removed 24 hrs after the procedure. You do not need to place new bandages. The wounds heal best open to the air. If there is a small amount of oozing or bleeding new bandages can be placed in an effort to prevent damage to clothing but is not required. Note that mild bruising and color change without pain may occur during normal healing at the puncture site. If you have active bleeding or swelling of the puncture site: - Lie down and apply firm pressure with two or three fingers over the puncture site for 15 minutes. - If you are alone when bleeding occurs or after holding pressure for 15 minutes, the bleeding continues, call 911 and continue to hold pressure until help arrives. - Do not try to drive yourself to the hospital. Call Your Local Provider for: - New or expanding swelling greater than a size of a golf ball at the groin puncture site/s. - Signs of infection (redness, drainage, fever) at the puncture site/s - Change in color, temperature, or sensation in the leg - Unusual feelings of weakness or faintness. Contact Information: Should you have any questions, concerns, or problems that occur Friday through Friday between 8:00 a.m. and 4:00 p.m., contact the Electrophysiology Service at [phone]. For questions occurring after business hours, on weekends, nights, or holidays call [phone] and ask for Electrophysiology Consular Officer. General Follow-Up: You should follow up locally with your primary care provider in approximately 2 weeks for post hospitalization follow-up. Take a copy of the dismissal summary from [facility] to your provider. [facility] Follow-Up: A follow-up appointment will be scheduled for you in 3 months in the Heart Rhythm Center or Cardiovascular Exam Room. You will be contacted by [facility] to set up the follow up. Tests will include the following: electrocardiogram, 24-hour Holter monitor, transthoracic echocardiogram, and CT scan of heart. Our appointment coordinators will be contacting you. If you have not been notified about your appointment, please contact the electrophysiology immigration coordinator at . Anticoagulation: Anticoagulation with Coumadin was continued at your previous dosing and schedule. INR was therapeutic at discharge at 2.6. INR goal is 2.5-3.5 due to history of left atrial appendage thrombus. Have your INR rechecked on 04/23/2019 locally. -Take your medications as directed; every day, every dose, and do not skip doses. -No tobacco (avoid secondhand smoke) -DO NOT avoid/skip your follow-up appointments, they are important! LFISH GROWER AttachmentsThe following attachments cannot be sent through Care Everywhere. Acetaminophen (By mouth) (Zimbabwean)Flecainide (By mouth) (Zimbabwean)Omeprazole (By mouth) (Zimbabwean)documented in this encounter Medications at Time of [...] a day with meals. For Diabetes Mellitus omeprazole (PriLOSEC) Take 1 capsule (40 mg [...] on Mon/Thurs documented as of this encounter Progress Notes Lissette Breen, Pharm.D., R.Ph. - 04/21/2019 7:11 AM CST Warfarin Dosing Progress Note: More information: Iris Metcalf is a 64 y.o. female who was admitted to the hospital on 04/19/2019. Hospital Pharmacy has been consulted for inpatient warfarin management and monitoring. She is now post Pulmonary Vein Isolation ( PVI) and Cavo Tricuspid Isthmus (CTI) ablation for atrial fibrillation her INR goal is2.5 to 3.5 due to history of left atrial thrombus Warfarin Indication: Other (Comment);Atrial fibrillation (AF) Other indication (comments): LA thrombus Type of therapy: Continuation Prior average daily dose: 5 Comorbidities: No known risk Are any of these comorbidities new with admission? No data recorded Are there any new medication interactions with admission? No data recorded Target INR: 2.5-3.5 Day of therapy: 2 Drug interactions include the following: Strong Potentiator (From admission, onward) None Moderate Potentiators (From admission, onward) Start Dose/Rate Route Frequency Ordered Stop 04/19/19 1502 acetaminophen tablet 1,000 mg (TYLENOL) 1,000 mg oral Every 6 hours PRN 04/19/19 1502 Potentiating (From admission, onward) Start Dose/Rate Route Frequency Ordered Stop 04/21/[address] capsule 40 mg (PriLOSEC) 40 mg oral Daily before breakfast 04/20/19 1426 04/19/19 2100 simvastatin tablet 20 mg (ZOCOR) 20 mg oral Daily at bedtime 04/19/19 0935 04/19/19 1502 acetaminophen tablet 1,000 mg (TYLENOL) 1,000 mg oral Every 6 hours PRN 04/19/19 1502 Enzyme Inducers (From admission, onward) None Binders (From admission, onward) None Vitamin K-Containing Medications (168h ago, onward) None Antiplatelets & Anticoagulants (168h ago, onward) Start Dose/Rate Route Frequency Ordered Stop 04/20/19 1700 warfarin management (COUMADIN) Note to Pharmacy: Note labile INRs today drawn during procedure while heparinized oral Daily 04/19/19 1622 04/20/19 1700 warfarin tablet 6 mg (COUMADIN) 6 mg oral Once 04/20/19 1126 04/20/19 1720 04/19/19 1700 warfarin tablet 6 mg (COUMADIN) 6 mg oral Once 04/19/19 1607 04/19/19 1802 INR reversal agents were not given. Warfarin Reversal Agent Administrations (last 168 hours) Vitamin K and K-Centra None FFP Administrations During Encounter (Filter: EAP GENERAL TRANSFUSE FFP Medications Shown) None Warfarin Administrations (last 168 hours) Date/Time Action Medication Dose 04/20/19 1720 Given warfarin tablet 6 mg (COUMADIN) 6 mg 04/19/19 1802 Given warfarin tablet 6 mg (COUMADIN) 6 mg INR (no units) Date Value Status 04/21/2019 2.6 Final 04/20/2019 2.1 Final 04/19/2019 2.7 Final 04/19/2019 8.3 (Crit H) Final 04/19/2019 5.1 (Crit H) Final INR, POCT, B (no units) Date Value Status 04/19/2019 2.4 Final A/P: 64 year old female on warfarin for left atrial thrombus and atrial fibrillation with goal INR of 2.5-3.5. Home regimen is 5mg po warfarin daily except on Friday and when she takes 6mg. INR is therapeutic at 2.6 today. I will order her home dose of 5 mg for this evening. Warfarin order of6 mg has been placed for today and the pharmacist team will continue to follow patient's clinical progress daily until discharge from the hospital. When patient discharged, discharge plan is for discharge warfarin dose: 5mg daily except 6mg on Friday and Lissette Breen Pharm.D., R.Ph. Contact Pager [phone] with any questions about this note. LFISH GROWER Tucker Rutherford P.A.-C. - 04/20/2019 11:26 AM CST SUBJECTIVE HISTORY OF PRESENT ILLNESS Iris Metcalf is a 64 y.o. female who is status post ablation of atrial fibrillation/atrial flutter performed by Dr. Yeager. There were no procedural complications. Please see Dr. Yeager's note for full details of the procedure. Ms. Metcalf denies chest pain, shortness of breath, inspiratory chest pain, new numbness or tingling in upper or lower extremities. She does complain of what feels like a pulled muscle in her left groin/thigh. She also has a slight headache. OBJECTIVE Temperature: [36.6 ??C-36.8 ??C] 36.8 ??C Heart Rate: [56-76] 72 Resp Rate: [14-21] 15 Blood Pressure: (94-136)/(64-83) 136/81 SpO2: [90 %-100 %] 93 % Flow Rate (L/min): [8 L/min] 8 L/min Pulse Rate: [60-74] 71 PHYSICAL EXAM Constitutional General: She is not in acute distress. Appearance: She is not diaphoretic. Cardiovascular Rate and Rhythm: Normal rate and regular rhythm. Heart sounds: Normal heart sounds. No murmur. No friction rub. Comments: Lower extremity pulses dopplerable Pulmonary Effort: Pulmonary effort is normal. No respiratory distress. Breath sounds: Normal breath sounds. No wheezing or rales. Musculoskeletal Normal range of motion. Comments: Distal circulation, sensation, and motor function are grossly intact in bilateral upper and lower extremities. Skin General: Skin is warm and dry. Neurological Mental Status: She is alert and oriented to person, place, and time. Wounds: Right and left femoral access sites are without active bleeding, drainage, hematoma, or bruit. Results from last 7 days Lab Units 04/20/19 0634 04/19/19 1410 04/19/19 1258 04/19/19 1046 WBC x10(9)/L 12.0* -- -- 9.0 HEMOGLOBIN g/dL 12.7 -- -- 13.6 HEMATOCRIT % 39.4 -- -- 40.1 POC HEMATOCRIT % -- 36.0 39.0 -- MCV fL 95.2 -- -- 90.7 PLATELETS AUTO x10(9)/L 362 -- -- 359 Results from last 7 days Lab Units 04/20/19 0634 04/19/19 1612 04/19/19 1410 04/19/19 1046 SODIUM P mmol/L -- -- -- -- -- 139 POC SODIUM mmol/L -- -- -- 137 < > -- POTASSIUM P -- -- < > -- -- 3.6 POTASSIUM mmol/L 4.7 -- -- -- -- -- CHLORIDE P mmol/L -- -- -- -- -- 100 CREATININE mg/dL 0.89 -- -- -- -- -- CREATININE P mg/dL -- -- -- -- -- 0.76 CRTS1 EGFR NON BLACK mL/min/BSA 70 -- -- -- -- -- CREP2 EGFR P mL/min/BSA -- -- -- -- -- 84 BUN P mg/dL -- -- -- -- -- 12 BUN mg/dL 13 -- -- -- -- -- ANION GAP P -- -- -- -- -- 14 POC GLUCOSE mg/dL -- 230* -- -- < > -- GLUCOSE P mg/dL -- -- -- -- -- 210* CALCIUM P mg/dL -- -- -- -- -- 8.8 < > = values in this interval not displayed. Results from last 7 days Lab Units 04/20/19 0634 04/19/19 1542 MAGNESIUM mg/dL 2.1 1.5* Ecg 12 Lead Result Date: 04/20/2019 Normal sinus rhythm Rightward axis ST and T wave abnormality, consider inferolateral ischemia When compared with ECG of 16-APR-2019 10:49, Sinus rhythm has replaced Atrial fibrillation Reviewed by SPENCER Zimmerman Ecg 12 Lead Result Date: 04/16/2019 Atrial fibrillation Rightward axis ST and T wave abnormality, consider inferolateral ischemia When compared with ECG of 26-FEB-2019 13:32, T waves have changed Reviewed by SPENCER Ingram Dx Chest Ap Or Pa And Lateral 2 Views Result Date: 04/20/2019 Impression: Since 06/29/2018, decreased lung volumes. No focal consolidation, or pneumothorax. Possible tiny left pleural effusion with associated atelectasis. Mild pulmonary vascular congestion. New cardiomegaly. Aortic calcification. Surgical clips right upper quadrant. ASSESSMENT / PLAN Hospital Problems as of 04/20/2019 1. * (Principal) Atrial Fibrillation Paroxysmal (HCC) Status post catheter ablation of atrial fibrillation and atrial flutter April 19, 2019. 2. Flutter Atrial (HCC) Status post typical flutter ablation performed by Dr. Yeager on 04/20/2019 3. Hypertension Essential Primary 4. Apnea Sleep Obstructive Her son will collect her CPAP machine from home later this week and bring to the facility. 5. Diabetes Mellitus Type 2 Without Complication (HCC) A1c 6.5% April 2018 in outside lab results. She does not check her blood sugars at due to tremor in her upper extremities. On Metformin. 6. Anticoagulant Therapy 7. Dysfunction Sinus Node (HCC) Iris Metcalf is post ablation of atrial fibrillation/atrial flutter performed by Dr. Yeager. After the ablation, anticoagulation with Warfarin was resumed. Her INR goal is 2.5-3.5. INR today was subtherapeutic at 2.1. I have ordered an increased dose of 6 mg of Coumadin for tonight. We will recheck her INR tomorrow morning. Metoprolol tartrate was decreased to 50 mg twice a day. Flecainide 100 mg twice a day was initiated.Digoxin was discontinued. Due to high left atrial pressures Dr. Yeager recommended diuresing with Lasix. She is given 20 mg of IV Lasix this morning and her electrolytes were replaced as needed. I scheduled another dose of 20mg of Lasix to be given IV at approximately 1:30 p.m. We will continue to monitor her urinary output We do not carry Maxalt for management of her headache currently but have ordered Imitrex in its place. She also takes Topamax twice daily which is ordered. I encouraged ambulation with the nursing staff to help relieve the tension in her left leg. Prilosec 40 mg daily for 1 month was started for atrial esophageal fistula prophylaxis. An order forhome CPAP was placed to treat sleep apnea while hospitalized. Oral and IV pain medications were ordered as needed for any sheath site discomfort. Ms. Metcalf will undergo ecg and labs prior to dismissal. Pending any complications we would anticipate dismissal from the hospital tomorrow afternoon. All of Ms. Metcalf's questions have been answered. Juan J Rutherford P.A.-C. Porfirio Hewitt M.D. - 04/20/2019 8:20 AM CST Heart Rhythm Post-Procedure Progress Note Iris Metcalf is a 64 y.o. female s/p PVI and CTI ablation yesterday. Overnight there have been no significant events. She has been ambulating without difficulty. She denies any complaints this morning. Telemetry: Sinus rhythm, rates mostly above 65 bpm, occasionally in the low 50s EKG: Sinus rhythm 75 bpm, QRS 102 msec, lateral and inferior STEs/TWIs (chronic) Chest x-ray: pending PHYSICAL EXAMINATION: Temperature: [36.6 ??C-36.8 ??C] 36.8 ??C Heart Rate: [56-89] 72 Resp Rate: [14-21] 15 Blood Pressure: (94-147)/(64-103) 136/81 SpO2: [90 %-100 %] 93 % Flow Rate (L/min): [8 L/min] 8 L/min Height: [165.6 cm] 165.6 cm Weight: [97.9 kg-98.4 kg] 97.9 kg BSA (Calculated - sq m): [2.13 sq meters] 2.13 sq meters BMI (Calculated): [35.7 kg/m??-35.9 kg/m??] 35.7 kg/m?? Pulse Rate: [60-74] 71 General: No acute distress Heart: Regular, normal S1/S2, no murmurs, no rub. Lungs: Clear bilaterally. Groin: Bilateral groin sites soft without hematoma or ecchymosis. Neurological: Alert, oriented x3; speech Normal. Extremities: No peripheral edema. Intake/Output Summary (Last 24 hours) at 04/20/2019 0821 Last data filed at 04/20/2019 0500 Gross per 24 hour Intake 3590 ml Output 2360 ml Net 1230 ml DIAGNOSTICS Results from last 7 days Lab Units 04/20/19 0634 04/19/19 1410 04/19/19 1258 04/19/19 1046 WBC x10(9)/L 12.0* -- -- 9.0 HEMOGLOBIN g/dL 12.7 -- -- 13.6 HEMATOCRIT % 39.4 -- -- 40.1 POC HEMATOCRIT % -- 36.0 39.0 -- PLATELETS AUTO x10(9)/L 362 -- -- 359 Results from last 7 days Lab Units 04/20/19 0634 04/19/19 1542 04/19/19 1410 04/19/19 1258 04/19/19 1046 04/16/19 0939 SODIUM P mmol/L -- -- -- -- 139 -- POC SODIUM mmol/L -- -- 137 137 -- -- POTASSIUM P mmol/L -- 3.8 -- -- 3.6 -- POTASSIUM mmol/L 4.7 -- -- -- -- -- CREATININE mg/dL 0.89 -- -- -- -- -- CREATININE P mg/dL -- -- -- -- 0.76 -- POC CREATININE mg/dL -- -- -- -- -- 0.8 POC EGFR NON mL/min/BSA -- -- -- -- -- 79 CRTS1 EGFR NON BLACK mL/min/BSA 70 -- -- -- -- -- CREP2 EGFR P mL/min/BSA -- -- -- -- 84 -- BUN P mg/dL -- -- -- -- 12 -- BUN mg/dL 13 -- -- -- -- -- CHLORIDE P mmol/L -- -- -- -- 100 -- MAGNESIUM mg/dL 2.1 1.5* -- -- -- -- IMPRESSION/ REPORT/ PLAN The patient is recovering well postprocedure without any complications. I reviewed the procedure andfollow-up instructions with the patient and her son, Yaya. 1) Continue warfarin for anticoagulation per home regimen (INR goal 2.5-3.5 for history of URSULA thrombus) 2) Flecainide 100 mg bid. Monitor inpatient until tomorrow am. 3) Omeprazole 40 mg bid for 1 month 4) Follow-up in Heart Rhythm clinic in 3 months with ECG, 24-hour Holter monitor, echocardiogram andimaging of the pulmonary veins. Porfirio Villegas M.D. Clinical Cardiac Electrophysiology Fellow 04/20/2019 8:21 AM SHELLFISH GROWER LFISH GROWER Aria Houser APRN, C.N.P., M.S.N. - 04/19/2019 4:23 PM CST SUBJECTIVE HISTORY OF PRESENT ILLNESS Iris Metcalf is a pleasant 64 y.o. female who status post catheter ablation of atrial fibrillation and atrial flutter. I am seeing her in her hospital room for post-operative evaluation. She currently denies chest pain, shortness of breath, headache, nausea, pain at the sheath access sites, back pain, or numbness and tingling in the extremities. She does have a mild sore throat but no difficulty swallowing. She remains on bedrest with a More catheter in place. She has tolerated sips of fluid but has yet to eat a meal. OBJECTIVE Heart Rate: [71-89] 73 Resp Rate: [16] 16 Blood Pressure: (94-147)/(64-103) 118/83 SpO2: [90 %-100 %] 91 % Flow Rate (L/min): [8 L/min] 8 L/min Pulse Rate: [71-73] 73 PHYSICAL EXAM Constitutional General: She is not in acute distress. Appearance: She is well-developed. Eyes Pupils: Pupils are equal, round, and reactive to light. Neck Vascular: No JVD. Trachea: No tracheal deviation. Cardiovascular Rate and Rhythm: Normal rate and regular rhythm. Pulmonary Effort: Pulmonary effort is normal. No respiratory distress. Skin General: Skin is warm and dry. Capillary Refill: Capillary refill takes less than 2 seconds. Comments: The bilateral femoral and right radial sheath access sites are free of signs of bleeding,swelling, drainage, or infection. There are no bruits. There is minimal tenderness with palpation. No palpable hematomas. Pulses are 2 + and equal bilaterally. The distal circulation, sensation, and motor function is intact. Neurological Mental Status: She is alert and oriented to person, place, and time. Psychiatric Behavior: Behavior normal. ASSESSMENT / PLAN Hospital Problems as of 04/19/2019 1. * (Principal) Atrial Fibrillation Paroxysmal (HCC) 2. Dysfunction Sinus Node (HCC) 3. Hypertension Essential Primary 4. Apnea Sleep Obstructive 5. Diabetes Mellitus Type 2 Without Complication (HCC) 6. Anticoagulant Therapy Iris Metcalf is a pleasant 64 y.o. female who status post catheter ablation of atrial fibrillation and atrial flutter. There were no known procedural complications. Vital signs are stable. Telemetry shows sinus rhythm. There are no signs of complications at the sheath access sites. I reviewed the plan of care with Ms. Metcalf. She will remain on hospitalization observation overnight. The More catheter will be discontinued once she is able to ambulate safely. Dr. Yeager recommends discontinuing the home dose of digoxin, reducing the home dose of metoprolol tartrate from 100 mg twice daily to 50 mg twice daily, and adding antiarrhythmic therapy with flecainide 100 mg twice daily. We will resume anticoagulation with Coumadin. Per Dr. Yeager, we will continue to manage Ms. Metcalf's diabetes with her home dose of metformin tonight rather than doing sliding scale insulin. We will hold her home dose of Lasix 20 mg p.o. daily and diuresed with IV Lasix as needed during the hospitalization. The remainder of her home medications are resumed. A serum potassium and magnesium are pending for this afternoon and will be replaced if indicated. An ECG, chest Xray, and labs are pending for the morning. Dr. Yeager advised that will requireat least 2 nights in the hospital for monitoring while on flecainide. LFISH GROWER Jayda Whitehead, Pharm.D., R.Ph. - 04/19/2019 4:01 PM CST Warfarin Dosing Progress Note: More information: Iris Metcalf is a 64 y.o. female who was admitted to the hospital on 04/19/2019. Hospital Pharmacy has been consulted for inpatient warfarin management and monitoring. She is now post Pulmonary Vein Isolation ( PVI) and Cavo Tricuspid Isthmus (CTI) ablation for atrial fibrillation her INR goal is2.5 to 3.5 due to history of left atrial thrombus Warfarin Indication: Other (Comment);Atrial fibrillation (AF) Other indication (comments): LA thrombus Type of therapy: Continuation Prior average daily dose: 5 Comorbidities: No known risk Are any of these comorbidities new with admission? No data recorded Are there any new medication interactions with admission? No data recorded Target INR: 2.5-3.5 Day of therapy: 1 Drug interactions include the following: Strong Potentiator (From admission, onward) None Moderate Potentiators (From admission, onward) Start Dose/Rate Route Frequency Ordered Stop 04/19/19 1502 acetaminophen tablet 1,000 mg (TYLENOL) 1,000 mg oral Every 6 hours PRN 04/19/19 1502 Potentiating (From admission, onward) Start Dose/Rate Route Frequency Ordered Stop 04/19/19 2100 simvastatin tablet 20 mg (ZOCOR) 20 mg oral Daily at bedtime 04/19/19 0935 04/19/19 1502 acetaminophen tablet 1,000 mg (TYLENOL) 1,000 mg oral Every 6 hours PRN 04/19/19 1502 Enzyme Inducers (From admission, onward) None Binders (From admission, onward) None Vitamin K-Containing Medications (168h ago, onward) None Antiplatelets & Anticoagulants (168h ago, onward) Start Dose/Rate Route Frequency Ordered Stop 04/19/19 1530 warfarin management (COUMADIN) Note to Pharmacy: Note labile INRs today drawn during procedure while heparinized oral Daily 04/19/19 1528 INR reversal agents were not given. Warfarin Reversal Agent Administrations (last 168 hours) Vitamin K and K-Centra None FFP Administrations During Encounter (Filter: EAP GENERAL TRANSFUSE FFP Medications Shown) None Warfarin Administrations (last 168 hours) None INR (no units) Date Value Status 04/19/2019 2.7 Final 04/19/2019 8.3 (Crit H) Final 04/19/2019 5.1 (Crit H) Final INR, POCT, B (no units) Date Value Status 04/19/2019 2.4 Final A/P: Note: POC INR early this morning was 2.4; records show INR of 5.1 and 8.3 measured while patient was receiving high doses of IV heparin during the procedure. After IV protamine, INR is 2.7. Patient takes 5mg po warfarin daily except on Friday and when she takes 6mg; her last dose was taken on 04/18/19 evening. We will give her 5.5mg today . Warfarin order of 6 mg has been placed for today and the pharmacist team will continue to follow patient's clinical progress daily until discharge from the hospital. When patient discharged, discharge plan is for discharge warfarin dose: 5mg daily except 6mg on Friday and Jayda Haddad Pharm.D., R.Ph. Contact Pager [phone] with any questions about this note. LFISH GROWER documented in this encounter Procedure Notes Porfirio Villegas M.D. - 04/19/2019 3:32 PM CST PATIENT DISPOSITION Transfer to Floor POST-PROCEDURE DIAGNOSIS S/p PVI and CTI ablation PROCEDURE PERFORMED AND DESCRIPTION Informed consent was obtained. Patient was brought to the EP suite in the fasting state. A procedural pause was performed and team de-briefing was done. ?? Access: R femoral vein 8.5Fr x2; L femoral vein 8Fr x1, 7Fr x1, 6Fr x1 Sheaths were placed using SonoSite Guidance. Radial arterial line: yes ?? Procedure: After sheaths were placed, IV heparin was given to maintain ACT>300 seconds throughout the procedure. ?? ICE imaging was used to guide mapping/ablation and to assess for pericardial effusion at procedure onset and offset. There was small pericardial effusion around the posterior LV base at the beginning of the procedure. This remained unchanged throughout the procedure. ? Baseline rhythm was atrial fibrillation. An EZsteer catheter was positioned in the coronary sinus and a quadripolar diagnostic catheter was positioned in the high right atrium. Dual transseptal LA access was obtained with an SL1 and an Agilis??sheath. A Smartouch DF contact force sensing ablation catheter and a variable decapolar Lasso catheter were advanced to the left atrium. An electroanatomic mapof the PVs and the LA was created. We performed point by point wide area circumferential ablation ofthe left sided and right-sided PVs. We had first pass isolation in both sets. Carinal lesions were not required for isolation. We paid close attention to esophageal temperatures and allowed for esophageal recovery between ablation lesions. We then demonstrated persistent entrance block with and without adenosine in all pulmonary veins. The patient was cardioverted to sinus rhythm. Catheters were thenwithdrawn to the right- sided chambers. We performed cavotricuspid isthmus ablation in a linear fashion between the tricuspid annulus and the IVC. We introduced a duodecapolar A20 catheter to the right atrium and demonstrated bidirectional block across the isthmus. The procedure was terminated at this point. Protamine was administered, the sheaths were removed andmanual hemostasis at the access sites was achieved. Post-procedure plan: 1) Bedrest for 4 hours post sheath pull. 2) Continue warfarin for anticoagulation per home regimen. 3) EKG and Chest x-ray in the am 4) Start flecainide 100 mg bid. Plan for inpatient observation for 48 hours. 5) Reduce metoprolol to 50 mg b.i.d.. Discontinue digoxin. PROCEDURE PERFORMED BY Dr. Shobha Villegas COMPLICATIONS None ANESTHESIA General ESTIMATED BLOOD LOSS Estimated Blood Loss: 1-75 ml LFISH GROWER documented in this encounter Consult Notes Flores Romeo R.N. - 04/21/2019 9:05 AM CSTAssociated Order(s): IP CONSULT TO CARE MANAGEMENT Discharge Planning Assessment SUBJECTIVE Referral Data Referral Source: Nurse Referral Name: Valerie Jaquez R.N. Referral Reason: Discharge Planning Discharge Planning: Other (Comment)([facility]) Who was present during the interview?: Patient Application Integration Engineer Services Used: No Patient Information Primary Caregiver: Other (Comment)(staff at facility) Primary Nurse Name/Number: Bernie Diet/Texture: By mouth Legal Information Legal Decision Maker: Self Advance Directives: Power of Windows Application Packager for health care, Power of Windows Application Packager for finance Advance Directives Status: Not Activated Power of Windows Application Packager for Health Care Agent Name: Ramin Metcalf Power of Windows Application Packager for Health Agent Contact Info: [phone] Power of Windows Application Packager for Finance Agent Name: Ramin Metcalf Power of Windows Application Packager for Finance Agent Contact Info: [phone] Caregiver Information Caregiver Name: [facility] Caregiver Relationship: paid staff Caregiver Caregiver Address: [address] [place] [address] Services Requested Discharge Planning to Facility OBJECTIVE Functional Status (ADLs) Functional Status: Minimum assistance Assistive Devices: CPAP Level of Assistance: Independent Dressing: Independent Feeding: Independent Bathing: Needs assistance Grooming: Independent Toileting: Independent Transfer to/from Bed, Chair Etc.: Independent Mobility: Independent Meal Prep: Needs assistance Medication Setup/Administration: Needs assistance Telephone Use: Independent Housekeeping: Dependent Shopping: Dependent Managing Finances: Independent Behavior: Oriented, Appropriate Communication: Can write, Talks, Understands speaking, Understands [place]an Environmental Supports Home Environment: [facility] Care Facility Name: [facility] Anticipated Modifications to the Patient's Home: None Anticipated Needs/Assistive Devices ADL Anticipated Needs: Bathing, Meal Preparation, Medication Set- up/Administration, Housekeeping, Shopping, Transportation Use (drive car, use taxi/bus) Equipment Anticipated Needs: None Transportation Needs: Support from family, Other (comment) Transportation Needs Other: Care Management arranged for discharge Finance/Insurance Primary insurance: MEDICARE A AND B Secondary insurance: UCARE Does the Patient have any Financial Concerns?: No Income Source: Disability (Comment), Social security(SSI) Income/Expense Information: Income meets expenses Discharge Planning Barriers To Discharge: None Strengths: Premorbid level of function, Support of immediate family Type of Residence: Other (Comment) Type of Residence Other: Clinical Services Consultant Care Facility Care Facility Name: [facility] Support Systems: Children Assistance Recommended after Discharge: 24 hour supervision Home Care Services: No Anticipated Discharge Destination: [facility] Does the patient need discharge transport arranged?: Yes Has discharge transport been arranged?: Yes What day is the transport expected?: 04/21/19 What time is the transport expected?: 1130 Discharge Provided By: Chasity Doniphan: [phone] ASSESSMENT / PLAN ??Assessment: Met with the patient to discuss her prior level of care and home going needs. I reviewed my role of Radiographer Mammographer. Patient reviewed her current hospitalization and appears to have understanding, insightand competence of her needs. Patient reviewed her home environment and support system; reviewing that her primary home care attendant - facility staff will be able to provide care to patient post discharge. Patient reports that she feels safe and supported to return [facility]. ?? Patient stated that she has two sons that are her support system. Patient hopes to transition to an assisted living center. Plan: Patient appears to have understanding, insight and competence into patient needs and is appropriately planning for discharge at this time. I recommended the following: none at this time 1. Patient plans to return to [facility] once medically stable for DC 2. Resources given:None 3. CM will continue to follow for any needs that arise. 4. Transportation home will be provided by Doniphan [phone]. 5. Reconnections needed [facility]. Patient to return to: Destination - Selection Complete Service Provider Request Status Selected Services Address Phone Number Fax Number [facility] Selected Transitional Care Unit [address] [facility] [address] [phone] Contact: Intake Patient has a MA bedhold. Facility prefers patient return by 1300. Transportation to be provided by Doniphan at 1130. Please contact Case Management if transport needs to be changed. NURSING: - Complete documentation in the Discharge Navigator including Nursing Report Info and Facility/Next Level of Care Info - Contact facility to give report on morning of discharge - Send required packet of dismissal information with patient, including After Visit Summary and advance directive. -If transport oxygen is needed, work with primary service and respiratory therapy to obtain an oxygen prescription. PRIMARY SERVICE: - Provide written prescriptions for all narcotics - If transport oxygen is needed, work with nursing and respiratory therapy to complete an oxygen prescription. After Visit Summary to include: - All discharge medications including dosage, times for administration, diagnosis, and stop date. - Ongoing care - wound care, infection precautions and phone numbers to call. CASE MANAGEMENT: -Reviewed patient's insurance coverage for the services noted above -Patient/family appear to have an understanding of this. -Will continue to follow and assist if needs arise. Signed by: Flores Romeo R.N. 04/21/2019 LFISH GROWER documented in this encounter Nursing Notes Talya Duffy R.N. - 04/21/2019 10:55 AM CST Pt d/c to [facility]. Facility AVS, discharge summary and MAR report printed, discussed andhanded to pt to relay to SNF. Nurse to nurse report done. Education complete. Teach-back acquired. All questions answered. Transport arranged. Escort requested. LFISH GROWER Mary Cortés, R.R.T., L.R.T. - 04/20/2019 12:42 AM CST Patient is a 64 y.o. female admitted on 04/19/2019 Alert Information: Plan of Care: Patient refused PAP therapy tonight. RT will continue to offer assistance. Principal Problem Atrial Fibrillation Paroxysmal (HCC) Oxygen Therapy $Delivery Method: Room air Arterial Line 04/19/19 Right Radial (Active) Placement Date/Time: 04/19/19 (c) 9392 Procedural Pause Completed: Yes Hand Hygiene Performed Prior to Insertion: Yes Site Prep: Chlorhexidine (Preferred) Sterile Barriers Used : Cap;Gloves;Gown;Large drape;Mask (Clinician);Mask (All others in ro... LFISH GROWER Naren Michaels R.N. - 04/19/2019 9:35 PM CST Shift Goals: Clinical Goals for the Shift: pt remain safe Identify possible barriers to meeting goals/advancing plan of care: pt up with assist and walker End of Shift Summary: met LFISH GROWER Naren Peng R.R.T., L.R.T. - 04/19/2019 5:29 PM CST Assist with CPAP LFISH GROWER Robbie Emerson R.N. - 04/19/2019 8:38 AM CST Patient was admitted for ablation/ electrophysiology procedure. Reviewed HPI, preliminary testing and confirmed medications taken this morning. The last dose of Warfarin taken was 04/19/2019. Pain management strategies post-procedure were discussed. All questions were answered. Patient would like family member Ramin updated with procedural updates. The phone number to reach this family member is [phone]. LFISH GROWER documented in this encounter Plan of Treatment Scheduled Referrals Name Type Priority Associated Diagnoses Order S chedu Cardiovascular Disease Outpatient Routine Flutter A trial (HCC) Expected: - Heart rhythm consult Referral Atrial Fibrillatio n 07/21/2019 (clinic) Paroxysmal (HCC) (Approximat e), Expires: 04/21/2022 documented as of this encounter Procedures Procedure Name Priority Date/Time Associated Comments Diagnosis ECG Routine 04/21/2019 Results for 10:47 AM SHELLFISH GROWER this procedure are in the results section. PROTHROMBIN TIME (PT), Routine 04/21/2019 6:15 Re sults for P AM SHELLFISH GROWER this procedure are in the results section. CBC WITH DIFFERENTIAL, Routine 04/21/2019 6:15 Re sults for B AM SHELLFISH GROWER this procedure are in the results section. BUN (BLOOD UREA Routine 04/21/2019 6:15 Results f or NITROGEN), S/P AM SHELLFISH GROWER this procedur e are in the results section. POTASSIUM, S/P Routine 04/21/2019 6:15 Results fo r AM SHELLFISH GROWER this procedure are in the results section. MAGNESIUM, S Routine 04/21/2019 6:15 Results for AM SHELLFISH GROWER this procedure are in the results section. CREATININE WITH EGFR, Routine 04/21/2019 6:15 Res ults for S/P AM SHELLFISH GROWER this procedure are in the results section. ECG Routine 04/20/2019 Results for 10:44 PM SHELLFISH GROWER this procedure are in the results section. DX CHEST AP OR PA AND RAD - Timed 04/20/2019 8:18 Res ults for LATERAL 2 VIEWS (for specific AM SHELLFISH GROWER this proced ure dates/times) are in the results section. ECG Routine 04/20/2019 6:42 Results for AM SHELLFISH GROWER this procedure are in the results section. PROTHROMBIN TIME (PT), Routine 04/20/2019 6:34 Re sults for P AM [facility] this procedure are in the results section. CBC WITH DIFFERENTIAL, Routine 04/20/2019 6:34 Re sults for B AM [facility] this procedure are in the results section. BUN (BLOOD UREA Routine 04/20/2019 6:34 Results f or NITROGEN), S/P AM [facility] this procedur e are in the results section. POTASSIUM, S/P Routine 04/20/2019 6:34 Results fo r AM [facility] this procedure are in the results section. MAGNESIUM, S Routine 04/20/2019 6:34 Results for AM [facility] this procedure are in the results section. CREATININE WITH EGFR, Routine 04/20/2019 6:34 Res ults for S/P AM [facility] this procedure are in the results section. GLUCOSE POCT, B Routine 04/19/2019 4:12 Results f or PM [facility] this procedure are in the results section. POTASSIUM, S/P STAT 04/19/2019 3:42 Results fo r PM [facility] this procedure are in the results section. MAGNESIUM, S STAT 04/19/2019 3:42 Results for PM [facility] this procedure are in the results section. PROTHROMBIN TIME (PT), STAT 04/19/2019 2:53 Re sults for P PM [facility] this procedure are in the results section. ABLATION - ATRIAL Routine 04/19/2019 2:26 Atrial Results for FLUTTER - RIGHT PM [facility] Fibrillation (HCC) this p rocedure are in the results section. ABLATION - WACA Routine 04/19/2019 2:26 Atrial Results f or PM [facility] Fibrillation (HCC) this proc edure are in the results section. HEART RHYTHM PROCEDURE Routine 04/19/2019 2:26 Atrial Re sults for PM [facility] Fibrillation (HCC) this proc edure are in the results section. HEART RHYTHM PROCEDURE Routine 04/19/2019 2:26 Atrial Re sults for PM [facility] Fibrillation (HCC) this proc edure are in the results section. HEART RHYTHM PROCEDURE Routine 04/19/2019 2:26 Atrial Re sults for PM [facility] Fibrillation (HCC) this proc edure are in the results section. ABLATION PVI Routine 04/19/2019 2:26 Atrial Results for PM [facility] Fibrillation (HCC) this proc edure are in the results section. ABG AND LYTES EG6+, Routine 04/19/2019 2:10 Resul ts for POCT, B PM [facility] this procedure are in the results section. ACT, POCT, B Routine 04/19/2019 2:03 Results for PM [facility] this procedure are in the results section. GLUCOSE POCT, B Routine 04/19/2019 2:02 Results f or PM [facility] this procedure are in the results section. ACT, POCT, B Routine 04/19/2019 1:19 Results for PM [facility] this procedure are in the results section. ABG AND LYTES EG6+, Routine 04/19/2019 Results for POCT, B 12:58 PM [facility] this procedure are in the results section. ACT, POCT, B Routine 04/19/2019 Results for 12:48 PM [facility] this procedure are in the results section. GLUCOSE POCT, B Routine 04/19/2019 Results for 12:47 PM [facility] this procedure are in the results section. ACT, POCT, B Routine 04/19/2019 Results for 12:19 PM [facility] this procedure are in the results section. PROTHROMBIN TIME (PT), STAT 04/19/2019 Resul ts for P 12:16 PM [facility] this procedure are in the results section. ACT, POCT, B Routine 04/19/2019 Results for 11:55 AM [facility] this procedure are in the results section. ACT, POCT, B Routine 04/19/2019 Results for 11:27 AM [facility] this procedure are in the results section. ACT, POCT, B Routine 04/19/2019 Results for 11:05 AM [facility] this procedure are in the results section. PROTHROMBIN TIME (PT), STAT 04/19/2019 Resul ts for P 10:46 AM [facility] this procedure are in the results section. CBC WITH DIFFERENTIAL, STAT 04/19/2019 Resul ts for B 10:46 AM [facility] this procedure are in the results section. BASIC METABOLIC PANEL, STAT 04/19/2019 Resul ts for S/P 10:46 AM [facility] this procedure are in the results section. TYPE AND SCREEN STAT 04/19/2019 Results for 10:45 AM [facility] this procedure are in the results section. GLUCOSE POCT, B Routine 04/19/2019 Results for 10:44 AM [facility] this procedure are in the results section. ACT, POCT, B Routine 04/19/2019 Results for 10:41 AM [facility] this procedure are in the results section. ECHO - INTRAPROCEDURAL Routine 04/19/2019 8:52 Re sults for IMAGES ONLY AM [facility] this procedure are in the results section. INR, POCT, B Routine 04/19/2019 8:37 Results for AM [facility] this procedure are in the results section. GLUCOSE POCT, B Routine 04/19/2019 8:37 Results f or AM [facility] this procedure are in the results section. documented in [...] layer. For the complete report, see the RVX Documents. Narrative 08/19/2019 1:52 PM CDT For the complete report, see the RVX Documents. Final Impressions 1. Echocardiogram performed per [...] 08/19/2019 For the complete report, see the Order-L evel Documents. Final Impressions 1. Echocardiogram performed per [...] Documents. Tucker Rutherford P.A.-C. CV ECHO PROCEDURES HOLTER MONITOR - [facility] (08/18/2019 10:48 AM CDT) [place] Method Time Signature SVE Max Per HOLTER [...] count HOLTER Hour SENTINEL Max Heart Rate [id number] HOLTER Time SENTINEL Specimen (Source) Anatomical Collection Method Collection Time Re ceived Time Location / / Volume Laterality 08/18/2019 10:49 AM CDT Narrative This result has an attachment that is no t available. Tucker Rutherford P.A.-C. CV CARDIAC SERVICES PROCEDUR ES Performing Organization Address City/State/ZIP Code Phon e Number HOLTER SENTINEL HOLTER SENTINEL NA ECG 12 Lead (08/18/2019 10:23 AM CDT) [place] Method Time Signature Ventricular 66 BPM MUSE Rate ECG/Min LA Interval 202 ms MUSE QRSD Interval 118 ms MUSE QT Interval 480 ms MUSE QTC Interval 503 ms MUSE P [place] 73 degrees MUSE R [place] 94 degrees MUSE T Wave [place] 47 degrees MUSE CODED DIAGNOSIS MUSE Semi-Urgent Finding (Prolonged QT) Specimen Anatomical Collection Method Collection Time Receive d Time (Source) Location / / Volume Laterality 08/18/2019 10:23 08/18/2019 3:40 AM CDT PM CDT Impressions MUSE - 09/01/2019 10:46 AM CDT Semi-Urgent Finding (Prolonged QT) Normal sinus rhythm with 1st degree A-V block Rightward axis Non-specific intra-ventricular conductio n delay Nonspecific ST abnormality Prolonged QT When compared with ECG of 21-APR-2019 10 :47, No significant change was found Reviewed by SPENCER Carrion Narrative This result has an attachment that is no t available. Procedure Note Errol Fisher M.D. - 09/01/2019Formatt ing of this note might be different from the original. IMPRESSION: Semi-Urgent Finding (Prolonged QT) Normal sinus rhythm with 1st degree A-V block Rightward axis Non-specific intra-ventricular conductio n delay Nonspecific ST abnormality Prolonged QT When compared with ECG of 21-APR-2019 10 :47, No significant change was found Reviewed by SPENCER Carrion Tucker Rutherford P.A.-C. ECG ORDERABLES Performing Organization Address City/State/ZIP Code Phon e Number MUSE MUSE NA CT Cardiac Angiogram Pulmonary Veins with IV [...] described clustered nodularity of the posterior ba regian left lower lobe is not present on the current study. Bibasilar subsegmenta l dependent atelectasis. Moderate esophageal hiatal hernia. Hyper trophic degenerative changes of the thoracic spine. Cholecystectomy clips se en on diploma dental assistant images. GUIDELINES FOR FOLLOW-UP of newly detect [...] thoracic spine. Cholecystectomy clips se en on diploma dental assistant images. GUIDELINES FOR FOLLOW-UP of newly detect [...] fo r recommended surveillance. Tucker Rutherford P.A.-C. IMG CT PROCEDURES ECG 12 Lead (04/21/2019 10:47 AM [facility]) athologist Signature Ventricular Rate 73 BPM MUSE ECG/Min LA Interval 204 ms MUSE QRSD Interval 110 ms MUSE QT Interval 414 ms MUSE QTC Interval 456 ms MUSE P [place] 69 degrees MUSE R [place] 104 degrees MUSE T Wave [place] 27 degrees MUSE Specimen Anatomical Collection Method Collection Time Receive d Time (Source) Location / / Volume Laterality 04/21/2019 10:47 04/21/2019 AM [facility] 10:55 AM [facility] Impressions MUSE - 04/21/2019 10:55 AM [facility] Normal sinus rhythm with 1st degree A-V block Rightward axis Nonspecific ST and T wave abnormality When compared with ECG of 20-APR-2019 22 :44, ST and T waves have changed QRS axis has changed Reviewed by SPENCER Doshi Narrative This result has an attachment that is no t available. Procedure Note Peyman Cole M.D. - 04/21/2019Formatt ing of this note might be different from the original. IMPRESSION: Normal sinus rhythm with 1st degree A-V block Rightward axis Nonspecific ST and T wave abnormality When compared with ECG of 20-APR-2019 22 :44, ST and T waves have changed QRS axis has changed Reviewed by SPENCER Doshi Tucker Rutherford P.A.-C. ECG ORDERABLES Performing Organization Address City/State/ZIP Code Phon e Number MUSE MUSE NA Magnesium (04/21/2019 6:15 AM [facility]) athologist Signature Magnesium, S 2.0 1.7 - 2.3 04/21/2019 DTL mg/dL 7:39 AM [facility] Specimen Anatomical Collection Method Collection Time Receive d Time (Source) Location / / Volume Laterality Blood (Blood, 04/21/2019 6:15 AM 04/21/19 20 6:39 Venous) [facility] AM [facility] Tucker Rutherford P.A.-C. LAB BLOOD ADD-ON Performing Organization Address [facility] Phon e Number [facility] - [address] [place] [phone] [facility] [place] [address] Laboratories-[address] (ABNORMAL) Prothrombin Time (PT) (04/21/2019 6:15 AM [facility]) [facility] Method Time Signature Prothrombin 28.6 (H) 9.4 - 12.5 04/21/2019 DTL Time, P sec 6:54 AM [facility] INR 2.6 0.9 - 1.1 04/21/2019 DTL 6:54 AM [facility] Comment: ----ADDITIONAL INFORMATION---- Standard intensity warfarin therapeutic range: 2.0 to 3.0 ?? High intensity warfarin therapeutic rang e: 2.5 to 3.5 Specimen Anatomical Collection Method Collection Time Receive d Time (Source) Location / / Volume Laterality Blood (Blood, 04/21/2019 6:15 AM 04/21/19 20 6:39 Venous) [facility] AM [facility] Aria Houser APRN, C.N.P., M.S.N. LAB BLOOD ADD-ON Performing Organization Address City/[facility] Phon e Number [facility] - [address] [place] [phone] [facility] [place] [address] Laboratories-[address] (ABNORMAL) CBC with Differential, Blood (04/21/2019 6:15 AM [facility]) [facility] Method Time Signature Hemoglobin 12.1 11.6 - 04/21/2019 DTL 15.0 g/dL 6:45 AM [facility] Hematocrit 38.0 35.5 - 04/21/2019 DTL 44.9 % 6:45 AM [facility] Erythrocytes 4.03 3.92 - 04/21/2019 DTL 5.13 6:45 AM [facility] x10(12)/L MCV 94.3 78.2 - 04/21/2019 DTL 97.9 fL 6:45 AM [facility] RBC Distrib Width 12.3 12.2 - 04/21/2019 DTL 16.1 % 6:45 AM [facility] Platelet Count 296 157 - 371 04/21/2019 DTL x10(9)/L 6:45 AM [facility] Leukocytes 11.7 (H) 3.4 - 9.6 04/21/2019 DTL x10(9)/L 6:45 AM [facility] Neutrophils 8.57 (H) 1.56 - 04/21/2019 DTL 6.45 6:45 AM [facility] x10(9)/L Lymphocytes 2.03 0.95 - 04/21/2019 DTL 3.07 6:45 AM [facility] x10(9)/L Monocytes 0.91 (H) 0.26 - 04/21/2019 DTL 0.81 6:45 AM [facility] x10(9)/L Eosinophils 0.14 0.03 - 04/21/2019 DTL 0.48 6:45 AM [facility] x10(9)/L Basophils 0.08 0.01 - 04/21/2019 DTL 0.08 6:45 AM [facility] x10(9)/L Specimen Anatomical Collection Method Collection Time Receive d Time (Source) Location / / Volume Laterality Blood (Blood, 04/21/2019 6:15 AM 04/21/19 20 6:40 Venous) [facility] AM [facility] Marla Pham LAB BLOOD ADD-ON Performing Organization Address City/State/ZIP Code Phon e Number [facility] - [address] [place], [place] [address] [facility] [place] [address] Laboratories-[facility] [address] Creatinine with Estimated GFR (04/21/2019 6:15 AM [facility]) P athologist Signature Creatinine 0.85 0.59 - 04/21/2019 DTL 1.04 mg/dL 7:39 AM [facility] eGFR-Non 74 >=60 04/21/2019 DTL Black/ mL/min/BSA 7:39 AM [facility] [place] Comment: ----ADDITIONAL INFORMATION---- Estimated GFR calculated using the 2009 CKD_EPI creatinine equation. eGFR-Black/ 85 >=60 mL/min/BSA 2019 7:39 AM [facility] DTL Comment: ----ADDITIONAL INFORMATION---- Estimated GFR calculated using the 2009 CKD_EPI creatinine equation. Specimen Anatomical Collection Method Collection Time Receive d Time (Source) Location / / Volume Laterality Blood (Blood, 04/21/2019 6:15 AM 04/21/19 20 6:39 Venous) [facility] AM [facility] Marla RendonSEdilma LAB BLOOD ADD-ON Performing Organization Address City/State/ZIP Code Phon e Number [facility] - [address] BUN (Blood Urea Nitrogen) (04/21/2019 6:15 AM [facility]) P athologist Signature BUN (Blood Urea 13 6 - 21 04/21/2019 DTL Nitrogen), S mg/dL 7:39 AM [facility] Specimen Anatomical Collection Method Collection Time Receive d Time (Source) Location / / Volume Laterality Blood (Blood, 04/21/2019 6:15 AM 04/21/19 20 6:39 Venous) [facility] AM [facility] Marla RendonSEdilma LAB BLOOD ADD-ON Performing Organization Address City/State/ZIP Code Phon e Number [facility] - [address] Potassium (04/21/2019 6:15 AM [facility]) P athologist Signature Potassium, S 5.0 3.6 - 5.2 04/21/2019 DTL mmol/L 7:39 AM [facility] Specimen Anatomical Collection Method Collection Time Receive d Time (Source) Location / / Volume Laterality Blood (Blood, 04/21/2019 6:15 AM 04/21/19 20 6:39 Venous) [facility] [place] AM [facility] Marla RendonSEdilma LAB BLOOD ADD-ON Performing Organization Address City/State/ZIP Code Phon e Number [facility] - [address] ECG 12 Lead (04/20/2019 10:44 PM [facility]) P athologist Signature Ventricular Rate 82 BPM MUSE ECG/Min LA Interval 198 ms MUSE QRSD Interval 106 ms MUSE QT Interval 374 ms MUSE QTC Interval 436 ms MUSE P [place] 67 degrees MUSE R [place] 89 degrees MUSE T Wave [place] -4 degrees MUSE Specimen Anatomical Collection Method Collection Time Receive d Time (Source) Location / / Volume Laterality 04/20/2019 10:44 04/21/2019 5:08 PM [facility] AM [facility] Impressions MUSE - 04/21/2019 5:08 AM [facility] Normal sinus rhythm ST and T wave abnormality, consider infe rolateral ischemia When compared with ECG of 20-APR-2019 06 :42, No significant change was found Reviewed by SPENCER Chandler Narrative This result has an attachment that is no t available. Procedure Note Trever Waldrop M.D. - 04/21/2019Forma tting of this note might be different from the original. IMPRESSION: Normal sinus rhythm ST and T wave abnormality, consider infe rolateral ischemia When compared with ECG of 20-APR-2019 06 :42, No significant change was found Reviewed by SPENCER Chandler Tucker Rutherford P.A.-C. ECG ORDERABLES Performing Organization Address City/State/ZIP Code Phon e Number MUSE MUSE NA DX Chest AP or PA and Lateral 2 Views (04/20/2019 8:18 AM [facility]) Anatomical Region Laterality Modality Chest, Thoracic RST LOS, Thoracic ARZ LOS, Thoracic N/A Digital Radiography FLA LOS Specimen (Source) Anatomical Collection Method Collection Time Re ceived Time Location / / Volume Laterality 04/20/2019 8:19 AM [facility] Impressions 04/20/2019 8:37 AM [facility] Since 06/29/2018, decreased lung volumes. No focal consolidation, or pneumothorax. Possible tiny left pleu ral effusion with associated atelectasis. Mild pulmonary vascular con gestion. New cardiomegaly. Aortic calcification. Surgical clips right uppe r quadrant. Narrative 04/20/2019 8:37 AM [facility] EXAM: ??DX CHEST AP OR PA AND LATERAL 2 VIEWS Procedure Note Chica Fagan M.D. - 04/20/2019Form atting of this note might be different from the original. EXAM: DX CHEST AP OR PA AND LATERAL 2 EWS IMPRESSION: Since 06/29/2018, decreased lung volumes . No focal consolidation, or pneumothorax. Possible tiny left pleu ral effusion with associated atelectasis. Mild pulmonary vascular con gestion. New cardiomegaly. Aortic calcification. Surgical clips right uppe r quadrant. Marla RendonSEdilma IMG DIAGNOSTIC IMAGING PROCE DURES ECG 12 Lead (04/20/2019 6:42 AM [facility]) [facility] [employer] Method Time Signature Ventricular 75 BPM MUSE Rate ECG/Min LA Interval 186 ms MUSE QRSD Interval 102 ms MUSE QT Interval 388 ms MUSE QTC Interval 433 ms MUSE P [place] 72 degrees MUSE R [place] 97 degrees MUSE T Wave [place] -127 degrees MUSE CODED Atrial MUSE DIAGNOSIS fibrillation Specimen Anatomical Collection Method Collection Time Receive d Time (Source) Location / / Volume Laterality 04/20/2019 6:42 AM 0 8:54 [facility] [facility] AM [facility] Impressions MUSE - 04/20/2019 8:54 AM [facility] Normal sinus rhythm Rightward axis ST and T wave abnormality, consider infe rolateral ischemia When compared with ECG of 16-APR-2019 10 :49, Sinus rhythm has replaced Atrial fibrill ation Reviewed by SPENCER Zimmerman Narrative This result has an attachment that is no t available. Procedure Note Nicole Myers M.D. - 04/20/2019 IMPRESSION: Normal sinus rhythm Rightward axis ST and T wave abnormality, consider infe rolateral ischemia When compared with ECG of 16-APR-2019 10 :49, Sinus rhythm has replaced Atrial fibrill ation Reviewed by SPENCER Zimmerman Marla Lora.S. ECG ORDERABLES Performing Organization Address City/State/ZIP Code Phon e Number MUSE MUSE NA (ABNORMAL) Prothrombin Time (PT) (04/20/2019 6:34 AM [facility]) [facility] [employer] Method Time Signature Prothrombin 23.1 (H) 9.4 - 12.5 04/20/2019 DTL Time, P sec 7:26 AM [facility] INR 2.1 0.9 - 1.1 04/20/2019 DTL 7:26 AM [facility] Comment: ----ADDITIONAL INFORMATION---- Standard intensity warfarin therapeutic range: 2.0 to 3.0 ?? High intensity warfarin therapeutic rang e: 2.5 to 3.5 Specimen Anatomical Collection Method Collection Time Receive d Time (Source) Location / / Volume Laterality Blood (Blood, 04/20/2019 6:34 AM 04/20/19 20 7:04 Venous) [facility] AM [place] Aria Houser APRN, C.N.P., M.S.N. LAB BLOOD ADD-ON Performing Organization Address City/State/ZIP Code Phon e Number [facility] - [address] [place], [place] [address] [facility] [place] [address] Laboratories-[facility] [address] [place] (ABNORMAL) CBC with Differential, Blood (04/20/2019 6:34 AM [facility]) [facility] gist Method Time Signature Hemoglobin 12.7 11.6 - 04/20/2019 DTL 15.0 g/dL 7:17 AM [facility] Hematocrit 39.4 35.5 - 04/20/2019 DTL 44.9 % 7:17 AM [facility] Erythrocytes 4.14 3.92 - 04/20/2019 DTL 5.13 7:17 AM [facility] x10(12)/L MCV 95.2 78.2 - 04/20/2019 DTL 97.9 fL 7:17 AM [facility] RBC Distrib Width 12.4 12.2 - 04/20/2019 DTL 16.1 % 7:17 AM [facility] Platelet Count 362 157 - 371 04/20/2019 DTL x10(9)/L 7:17 AM [facility] Leukocytes 12.0 (H) 3.4 - 9.6 04/20/2019 DTL x10(9)/L 7:17 AM [facility] Neutrophils 8.06 (H) 1.56 - 04/20/2019 DTL 6.45 7:17 AM [facility] x10(9)/L Lymphocytes 2.74 0.95 - 04/20/2019 DTL 3.07 7:17 AM [facility] x10(9)/L Monocytes 0.93 (H) 0.26 - 04/20/2019 DTL 0.81 7:17 AM [facility] x10(9)/L Eosinophils 0.17 0.03 - 04/20/2019 DTL 0.48 7:17 AM [facility] x10(9)/L Basophils 0.10 (H) 0.01 - 04/20/2019 DTL 0.08 7:17 AM [facility] x10(9)/L Specimen Anatomical Collection Method Collection Time Receive d Time (Source) Location / / Volume Laterality Blood (Blood, 04/20/2019 6:34 AM 04/20/19 20 7:04 Venous) [facility] [place] AM [facility] Marla Pham LAB BLOOD ADD-ON Performing Organization Address City/State/[facility] Phon e Number [facility] - [address] [place], [place] [address] [place] [address] Creatinine with Estimated GFR (04/20/2019 6:34 AM [facility]) athologist Signature Creatinine 0.89 0.59 - 04/20/2019 DTL 1.04 mg/dL 8:15 AM [facility] eGFR-Non 70 >=60 04/20/2019 DTL Black/ mL/min/BSA 8:15 AM [facility] [place] Comment: ----ADDITIONAL INFORMATION---- Estimated GFR calculated using the 2009 CKD_EPI creatinine equation. eGFR-Black/ 80 >=60 mL/min/BSA 2019 8:15 AM [facility] DTL Comment: ----ADDITIONAL INFORMATION---- Estimated GFR calculated using the 2009 CKD_EPI creatinine equation. Specimen Anatomical Collection Method Collection Time Receive d Time (Source) Location / / Volume Laterality Blood (Blood, 04/20/2019 6:34 AM 04/20/19 20 7:04 Venous) [facility] AM [facility] Marla RendonSEdilma LAB BLOOD ADD-ON Performing Organization Address City/State/[facility] Code Phon e Number [facility] - [address] [place], [place] [address] [facility] [place] [address] Formerly [facility]-[address] BUN (Blood Urea Nitrogen) (04/20/2019 6:34 AM [facility]) athologist Signature BUN (Blood Urea 13 6 - 21 04/20/2019 DTL Nitrogen), S mg/dL 8:15 AM [facility] Specimen Anatomical Collection Method Collection Time Receive d Time (Source) Location / / Volume Laterality Blood (Blood, 04/20/2019 6:34 AM 04/20/19 20 7:04 Venous) [facility] AM [facility] Marla RendonS. LAB BLOOD ADD-ON Performing Organization Address City/[facility]/ZIP Code Phon e Number [facility] - [address] Potassium (04/20/2019 6:34 AM [facility]) P athologist Signature Potassium, S 4.7 3.6 - 5.2 04/20/2019 DTL mmol/L 8:15 AM [facility] Specimen Anatomical Collection Method Collection Time Receive d Time (Source) Location / / Volume Laterality Blood (Blood, 04/20/2019 6:34 AM 04/20/19 7:04 Venous) [facility] [place] AM [facility] Marla Lora.S. LAB BLOOD ADD-ON Performing Organization Address City/[facility]/ZIP Code Phon e Number [facility] - [address] Magnesium (04/20/2019 6:34 AM [facility]) P athologist Signature Magnesium, S 2.1 1.7 - 2.3 04/20/2019 DTL mg/dL 8:15 AM [facility] Specimen Anatomical Collection Method Collection Time Receive d Time (Source) Location / / Volume Laterality Blood (Blood, 04/20/2019 6:34 AM 04/20/19 20 7:04 Venous) [facility] AM [facility] Marla MarshallB.S. LAB BLOOD ADD-ON Performing Organization Address City/State/ZIP Code Phon e Number [facility] - [address] (ABNORMAL) Glucose, POCT (04/19/2019 4:12 PM [facility]) Analysis Performed At Patho logist Time Signature Glucose, POCT, 230 (H) 70 - 140 04/19/2019 PCLX B mg/dL 4:19 PM [facility] Last Intake 3-4 hours 04/19/2019 PCLX 4:19 PM [facility] Specimen Anatomical Collection Method Collection Time Receive d Time (Source) Location / / Volume Laterality Blood 04/19/2019 4:12 PM 0 4:19 [facility] PM [facility] Unknown Provider LAB POCT ORDERABLES-MANUAL Performing Organization Address City/State/ZIP Code Phon e Number POC [facility] [address] [place] [address] PCLX [facility] [place] [address] [place] POC [address] (ABNORMAL) Magnesium (04/19/2019 3:42 PM [facility]) P athologist Signature Magnesium, S 1.5 (L) 1.7 - 2.3 04/19/2019 DTL mg/dL 5:03 PM [facility] Specimen Anatomical Collection Method Collection Time Receive d Time (Source) Location / / Volume Laterality Blood (Blood, 04/19/2019 3:42 PM 04/19/19 20 4:28 Venous) [facility] PM [facility] Kadeem Soto APRNNMarcel., M.S.N. LAB BLOOD ADD-ON Performing Organization Address City/State/ZIP Code Phon e Number [facility] - [address] [place], [place] [address] [facility] [place] [address] [facility] [address] Potassium (04/19/2019 3:42 PM [facility]) P athologist Signature Potassium, P 3.8 3.6 - 5.2 04/19/2019 [facility] mmol/L 4:01 PM [facility] Specimen Anatomical Collection Method Collection Time Receive d Time (Source) Location / / Volume Laterality Blood (Blood, 04/19/2019 3:42 PM 04/19/19 20 3:49 Venous) [facility] PM [facility] Kadeem Soto APRNNEdilmaP., M.S.N. LAB BLOOD ADD-ON Performing Organization Address City/State/ZIP Code Phon e Number [facility] - [address] [place], [place] [address] [facility] [place] [place] [address] [facility] [address] (ABNORMAL) Prothrombin Time (PT) (04/19/2019 2:53 PM [facility]) Patholo gist Method Time Signature Prothrombin 29.8 (H) 9.4 - 12.5 04/19/2019 [facility] Time, P sec 3:14 PM [facility] INR 2.7 0.9 - 1.1 04/19/2019 [facility] 3[facility]14 PM [facility] Comment: ----ADDITIONAL INFORMATION---- Standard intensity warfarin therapeutic range: 2.0 to 3.0 ?? High intensity warfarin therapeutic rang e: 2.5 to 3.5 Specimen Anatomical Collection Method Collection Time Receive d Time (Source) Location / / Volume Laterality Blood (Blood, 04/19/2019 2:53 PM 04/19/19 20 3:02 Venous) [facility] PM [facility] Tucker Rutherford P.A.-C. LAB BLOOD ADD-ON Performing Organization Address City/State/ZIP Code Phon e Number [facility] - [address] [place] [address] [facility] [place] [address] [facility] [address] ABLATION PVI, CARTO, ULTRASOUND GUIDANCE FOR VASCULAR ACCESS, INTRACARDIAC ECHOCARDIOGRAM, ABLATION - WACA, ABLATION - ATRIAL FLUTTER - RIGHT (04/19/2019 2:26 PM [facility]) Anatomical Region Laterality Modality X-Ray Angiography Specimen (Source) Anatomical Collection Method Collection Time Re ceived Time Location / / Volume Laterality 04/19/2019 10:13 AM [facility] Narrative 04/20/2019 2:47 PM [facility] For the complete report, see the Order-L evel Documents. PROCEDURE TYPES 1. ??ABLATION - PVI 2. ??3D MAPPING - CARTO 3. ??ULTRASOUND GUIDANCE FOR VASCULAR AC CESS 4. ??INTRACARDIAC ECHOCARDIOGRAM 5. ??ABLATION - WACA 6. ??ABLATION - ATRIAL FLUTTER - RIGHT PRE-PROCEDURE DIAGNOSIS 1. ??Atrial Fibrillation (HCC) FINAL IMPRESSIONS 1. ??Pulmonary vein ablation for atrial fibrillation was successful in all veins. 2. ??Typical [[MOD1]] isthmus dependent atrial flutter was ablated successfully with bi-directional block. DIAGNOSTIC/ABLATION INTRA-PROCEDURE - General anesthesia - Transesophageal echocardiogram - Catheter placement - Basic interval determination - Patient heparinization - Intracardiac ultrasound examination of the heart and pericardial space - Intracardiac ultrasound guided transse ptal access - Transseptal sheath placement - 3D mapping performed: Fast Anatomical Mapping - Ablation of the Left WACA for AFib - Ablation of the Right WACA for AFib - Ablation of the CTI for AFlutter typic al - Repeat testing with Isoproterenol - Repeat testing following ablation - Intracardiac ultrasound examination of the heart and pericardial space - DC cardioversion/defibrillation was re quired 3 times RADIATION DOSE DATA Procedure cumulative skin dose (mGy): 45 9.12 Procedure cumulative dose area product ( Gy-cm2): 47.64 Fluoro Time (Min): 28.37 For the complete report, see the Order-L evel Documents. Procedure Note Marla Yeager M.B.B.S. - 04/20/2019F ormatting of this note might be different from the original. For the complete report, see the Order-L evel Documents. PROCEDURE TYPES 1. ABLATION - PVI 2. 3D MAPPING - CARTO 3. ULTRASOUND GUIDANCE FOR VASCULAR ACCE SS 4. INTRACARDIAC ECHOCARDIOGRAM 5. ABLATION - WACA 6. ABLATION - ATRIAL FLUTTER - RIGHT PRE-PROCEDURE DIAGNOSIS 1. Atrial Fibrillation (HCC) FINAL IMPRESSIONS 1. Pulmonary vein ablation for atrial fi brillation was successful in all veins. 2. Typical [[MOD1]] isthmus dependent at rial flutter was ablated successfully with bi-directional block. DIAGNOSTIC/ABLATION INTRA-PROCEDURE - General anesthesia - Transesophageal echocardiogram - Catheter placement - Basic interval determination - Patient heparinization - Intracardiac ultrasound examination of the heart and pericardial space - Intracardiac ultrasound guided transse ptal access - Transseptal sheath placement - 3D mapping performed: Fast Anatomical Mapping - Ablation of the Left WACA for AFib - Ablation of the Right WACA for AFib - Ablation of the CTI for AFlutter typic al - Repeat testing with Isoproterenol - Repeat testing following ablation - Intracardiac ultrasound examination of the heart and pericardial space - DC cardioversion/defibrillation was re quired 3 times RADIATION DOSE DATA Procedure cumulative skin dose (mGy): 45 9.12 Procedure cumulative dose area product ( Gy-cm2): 47.64 Fluoro Time (Min): 28.37 For the complete report, see the Order-L evel Documents. Marla RendonS. CV ELECTROPHYSIOLOGY PROCS (ABNORMAL) ABG and Elian, POCT (04/19/2019 2:10 PM [facility]) P athologist Signature Sample Site, Artline 04/19/2019 [facility] POCT 2:16 PM [facility] Comment: ----ADDITIONAL INFORMATION---- Performed at the Point of Care pH, POCT 7.42 7.35 - 7.45 04/19/2019 2:16 PM [facility] PCLX Comment: ----ADDITIONAL INFORMATION---- Performed at the Point of Care pCO2, POCT 44 32 - 45 mm Hg 04/19/2019 2:16 PM [facility] PC LX Comment: ----ADDITIONAL INFORMATION---- Performed at the Point of Care pO2, POCT 455 (H) 83 - 108 mm Hg 04/19/2019 2:16 PM [facility] PC LX Comment: ----ADDITIONAL INFORMATION---- Performed at the Point of Care Base, POCT 4 (H) -2 - 3 mmol/L 04/19/2019 2:16 PM [facility] PC LX Comment: ----ADDITIONAL INFORMATION---- Performed at the Point of Care HCO3, POCT 29 (H) 22 - 26 mmol/L 04/19/2019 2:16 PM [facility] P CLX Comment: ----ADDITIONAL INFORMATION---- Performed at the Point of Care Sodium, POCT, B 137 135 - 145 mmol/L 04/19/2019 2:16 P M [facility] PCLX Comment: ----ADDITIONAL INFORMATION---- Performed at the Point of Care Potassium, POCT, B 3.0 (L) 3.6 - 5.2 mmol/L 04/19/2019 2:1 6 PM [facility] P[facility] Comment: ----ADDITIONAL INFORMATION---- Performed at the Point of Care Hematocrit, POCT, B 36.0 35.5 - 44.9 % 04/19/2019 2:16 PM [facility] PCL[facility] Comment: ----ADDITIONAL INFORMATION---- Performed at the Point of Care Specimen Anatomical Collection Method Collection Time Receive d Time (Source) Location / / Volume Laterality Blood 04/19/2019 2:10 PM 0 2:16 [facility] PM [facility] Unknown Provider LAB POCT ORDERABLES - DEVICE Performing Organization Address City/State/ZIP Code Phon e Number POC [facility] [address] [place] [address] [place] [address] [place] [facility] [address] (ABNORMAL) ACT (Activated Clotting Time), POCT (04/19/2019 2:03 PM [facility]) athologist Signature Activated 167 (H) 84 - 139 04/19/2019 [facility] Clotting Time, sec 2:16 PM [facility] POCT Specimen Anatomical Collection Method Collection Time Receive d Time (Source) Location / / Volume Laterality Blood 04/19/2019 2:03 PM 0 2:16 [place] PM [facility] Unknown Provider LAB POCT ORDERABLES - DEVICE Performing Organization Address City/[facility] Phon e Number POC [facility] [address] [place], [place] [address] [place] [address] [place] [facility] [address] (ABNORMAL) Glucose, POCT (04/19/2019 2:02 PM [facility]) athologist Signature Glucose, POCT, 193 (H) 70 - 140 04/19/2019 [facility] B mg/dL 2:04 PM [facility] Specimen Anatomical Collection Method Collection Time Receive d Time (Source) Location / / Volume Laterality Blood 04/19/2019 2:02 PM 0 2:04 [facility] PM [facility] Unknown Provider LAB POCT ORDERABLES-MANUAL Performing Organization Address City/[facility] Phon e Number POC [facility] [address] [place] [address] [place] [address] [place] [facility] [address] (ABNORMAL) ACT (Activated Clotting Time), POCT (04/19/2019 1:19 PM [facility]) athologist Signature Activated 300 (H) 84 - 139 04/19/2019 [facility] Clotting Time, sec 1:30 PM [facility] POCT Specimen Anatomical Collection Method Collection Time Receive d Time (Source) Location / / Volume Laterality Blood 04/19/2019 1:19 PM 0 1:30 [facility] PM [facility] Unknown Provider LAB POCT ORDERABLES - DEVICE Performing Organization Address City/[facility] Phon e Number [facility] [address] [place], [place] [address] [place] [address] [place] [facility] [address] (ABNORMAL) ABG and Lytes, POCT (04/19/2019 12:58 PM [facility]) P athologist Signature Sample Site, Artline 04/19/2019 [facility] POCT 1:04 PM [facility] Comment: ----ADDITIONAL INFORMATION---- Performed at the Point of Care pH, POCT 7.41 7.35 - 7.45 04/19/2019 1:04 PM [facility] PCLX Comment: ----ADDITIONAL INFORMATION---- Performed at the Point of Care pCO2, POCT 43 32 - 45 mm Hg 04/19/2019 1:04 PM [facility] PC LX Comment: ----ADDITIONAL INFORMATION---- Performed at the Point of Care pO2, POCT 160 (H) 83 - 108 mm Hg 04/19/2019 1:04 PM [facility] PC LX Comment: ----ADDITIONAL INFORMATION---- Performed at the Point of Care Base, POCT 3 -2 - 3 mmol/L 04/19/2019 1:04 PM [facility] PC LX Comment: ----ADDITIONAL INFORMATION---- Performed at the Point of Care HCO3, POCT 27 (H) 22 - 26 mmol/L 04/19/2019 1:04 PM [facility] P CLX Comment: ----ADDITIONAL INFORMATION---- Performed at the Point of Care Sodium, POCT, B 137 135 - 145 mmol/L 04/19/2019 1:04 P M [facility] PCLX Comment: ----ADDITIONAL INFORMATION---- Performed at the Point of Care Potassium, POCT, B 3.3 (L) 3.6 - 5.2 mmol/L 04/19/2019 1:0 4 PM [facility] PCLX Comment: ----ADDITIONAL INFORMATION---- Performed at the Point of Care Hematocrit, POCT, B 39.0 35.5 - 44.9 % 04/19/2019 1:04 PM [facility] PCLX Comment: ----ADDITIONAL INFORMATION---- Performed at the Point of Care Specimen Anatomical Collection Method Collection Time Receive d Time (Source) Location / / Volume Laterality Blood 04/19/2019 12:58 04/19/2019 1:04 PM [facility] PM [facility] Unknown Provider LAB POCT ORDERABLES - DEVICE Performing Organization Address City/State/ZIP Code Phon e Number POC [facility] [address] [place] [address] [place] [address] [place] [facility] [address] (ABNORMAL) ACT (Activated Clotting Time), POCT (04/19/2019 12:48 PM [facility]) athologist Signature Activated 369 (H) 84 - 139 04/19/2019 PCS[facility] Clotting Time, sec 1:04 PM [facility] POCT Specimen Anatomical Collection Method Collection Time Receive d Time (Source) Location / / Volume Laterality Blood 04/19/2019 12:48 04/19/2019 1:04 PM [facility] PM [facility] Unknown Provider LAB POCT ORDERABLES - DEVICE Performing Organization Address City/[facility]/ZIP [facility] Phon e Number POC [facility] [address] [place], [place] [address] [place] [address] [place] [facility] [address] [place] [address] (ABNORMAL) Glucose, POCT (04/19/2019 12:47 PM [facility]) athologist Signature Glucose, POCT, 199 (H) 70 - 140 04/19/2019 [facility] B mg/dL 12:49 PM [facility] Site ARTLINE 04/19/2019 P[facility] 12:49 PM [facility] Specimen Anatomical Collection Method Collection Time Receive d Time (Source) Location / / Volume Laterality Blood 04/19/2019 12:47 04/19/2019 PM [facility] 12:49 PM [facility] Unknown Provider LAB POCT ORDERABLES-MANUAL Performing Organization Address City/[facility]/ZIP [facility] Phon e Number POC [facility] [address] [place] [address] [place] [address] [place] [facility] 200 [facility] (ABNORMAL) ACT (Activated Clotting Time), POCT (04/19/2019 12:19 PM [facility]) athologist Signature Activated 341 (H) 84 - 139 04/19/2019 PCS[facility] Clotting Time, sec 12:30 PM [facility] POCT Specimen Anatomical Collection Method Collection Time Receive d Time (Source) Location / / Volume Laterality Blood 04/19/2019 12:19 04/19/2019 PM [facility] 12:30 PM [facility] Unknown Provider LAB POCT ORDERABLES - DEVICE Performing Organization Address City/[facility] Phon e Number [facility] [address] [place], [place] [address] LABS [place] [place] [id number] [place] [address] (ABNORMAL) Prothrombin Time (PT) (04/19/2019 12:16 PM [facility]) [facility] gist Method Time Signature Prothrombin 95.8 (H) 9.4 - 12.5 04/19/2019 [facility] Time, P sec 12:49 PM [facility] INR 8.3 (CH) 0.9 - 1.1 04/19/2019 [facility] 12:49 PM [facility] Comment: ----ADDITIONAL INFORMATION---- Standard intensity warfarin therapeutic range: 2.0 to 3.0 ?? High intensity warfarin therapeutic rang e: 2.5 to 3.5 Specimen Anatomical Collection Method Collection Time Receive d Time (Source) Location / / Volume Laterality Blood (Blood, 04/19/2019 12:16 04/19/2019 Venous) PM [facility] 12:23 PM [facility] Ana Soto APRN.N.Howard., M.S.N. LAB BLOOD ADD-ON Performing Organization Address City/State/ZIP Code Phon e Number [facility] - [address] [place], [place] [address] (ABNORMAL) ACT (Activated Clotting Time), POCT (04/19/2019 11:55 AM [facility]) athologist Signature Activated 296 (H) 84 - 139 04/19/2019 PCS[facility] Clotting Time, sec 12:06 PM [facility] POCT Specimen Anatomical Collection Method Collection Time Receive d Time (Source) Location / / Volume Laterality Blood 04/19/2019 11:55 04/19/2019 AM [facility] 12:06 PM [facility] Unknown Provider LAB POCT ORDERABLES - DEVICE Performing Organization Address City/[facility]/ZIP [facility] Phon e Number POC [facility] [address] [place], [place] [address] LABS [place] [id number] [place] [address] (ABNORMAL) ACT (Activated Clotting Time), POCT (04/19/2019 11:27 AM [facility]) athologist Signature Activated 353 (H) 84 - 139 04/19/2019 PCSM Clotting Time, sec 11:38 AM [facility] POCT Specimen Anatomical Collection Method Collection Time Receive d Time (Source) Location / / Volume Laterality Blood 04/19/2019 11:27 04/19/2019 AM [facility] 11:39 AM [facility] Unknown Provider LAB POCT ORDERABLES - DEVICE Performing Organization Address City/State/[facility] Phon e Number POC [facility] INPATIENT [address] [place], [place] [address] [facility]S [place], [place] [id number] [place] [address] (ABNORMAL) ACT (Activated Clotting Time), POCT (04/19/2019 11:05 AM [facility]) athologist Signature Activated 296 (H) 84 - 139 04/19/2019 PCS[facility] Clotting Time, sec 11:17 AM [facility] POCT Specimen Anatomical Collection Method Collection Time Receive d Time (Source) Location / / Volume Laterality Blood 04/19/2019 11:05 04/19/2019 AM [facility] 11:17 AM [facility] Unknown Provider LAB POCT ORDERABLES - DEVICE Performing Organization Address City/[facility] Phon e Number POC [facility] INPATIENT [address] [place], [place] [address] LABS [place], [place] [id number] [place] [address] (ABNORMAL) Basic Metabolic Panel (04/19/2019 10:46 AM [facility]) athologist Signature Potassium, P 3.6 3.6 - 5.2 04/19/2019 [facility] mmol/L 11:18 AM [facility] Sodium, P 139 135 - 145 04/19/2019 [facility] mmol/L 11:18 AM [facility] Chloride, P 100 98 - 107 04/19/2019 [facility] mmol/L 11:18 AM [facility] Bicarbonate, P 25 22 - 29 04/19/2019 [facility] mmol/L 11:18 AM [facility] Anion Gap, P 14 7 - 15 04/19/2019 [facility] 11:18 AM [facility] BUN (Blood Urea 12 6 - 21 04/19/2019 [facility] Nitrogen), P mg/dL 11:18 AM [facility] Creatinine 0.76 0.59 - 04/19/2019 [facility] 1.04 mg/dL 11:18 AM [facility] eGFR-Black/Afric >90 >=60 04/19/2019 [facility] an Dutch mL/min/BSA 11:18 AM [facility] Comment: ----ADDITIONAL INFORMATION---- Estimated GFR calculated using the 2009 CKD_EPI creatinine equation. eGFR Non-Black/ 84 >=60 mL/min/BSA 04/19/2019 11:18 AM [facility] Comment: ----ADDITIONAL INFORMATION---- Estimated GFR calculated using the 2009 CKD_EPI creatinine equation. Calcium, Total, P 8.8 8.8 - 10.2 mg/dL 04/19/2019 11:1 8 AM [facility] Glucose, P 210 (H) 70 - 140 mg/dL 04/19/2019 11:18 AM [facility] Specimen Anatomical Collection Method Collection Time Receive d Time (Source) Location / / Volume Laterality Blood (Blood, 04/19/2019 10:46 04/19/2019 Venous) AM [facility] 11:01 AM [facility] Renetta Greer APRN C.N.P., D.N.P. LAB BLOOD ADD-ON Performing Organization Address City/State/ZIP Code Phon e Number [facility] - [address] [place], [place] [address] [place] [address] Laboratories-[facility] [address] (ABNORMAL) CBC with Differential, Blood (04/19/2019 10:46 AM [facility]) [facility] Method Time Signature Hemoglobin 13.6 11.6 - 04/19/2019 [facility] 15.0 g/dL 11:10 AM [facility] Hematocrit 40.1 35.5 - 04/19/2019 [facility] 44.9 % 11:10 AM [facility] Erythrocytes 4.42 3.92 - 04/19/2019 [facility] 5.13 11:10 AM [facility] x10(12)/L MCV 90.7 78.2 - 04/19/2019 [facility] 97.9 fL 11:10 AM [facility] RBC Distrib Width 11.9 (L) 12.2 - 04/19/2019 [facility] 16.1 % 11:10 AM [facility] Platelet Count 359 157 - 371 04/19/2019 [facility] x10(9)/L 11:10 AM [facility] Leukocytes 9.0 3.4 - 9.6 04/19/2019 [facility] x10(9)/L 11:10 AM [facility] Neutrophils 5.07 1.56 - 04/19/2019 [facility] 6.45 11:10 AM [facility] x10(9)/L Lymphocytes 2.74 0.95 - 04/19/2019 [facility] 3.07 11:10 AM [facility] x10(9)/L Monocytes 0.65 0.26 - 04/19/2019 [facility] 0.81 11:10 AM [facility] x10(9)/L Eosinophils 0.40 0.03 - 04/19/2019 [facility] 0.48 11:10 AM [facility] x10(9)/L Basophils 0.14 (H) 0.01 - 04/19/2019 [facility] 0.08 11:10 AM [facility] x10(9)/L Specimen Anatomical Collection Method Collection Time Receive d Time (Source) Location / / Volume Laterality Blood (Blood, 04/19/2019 10:46 04/19/2019 Venous) AM [facility] 11:01 AM [facility] Ana Pickett APRN.N.P., D.N.P. LAB BLOOD ADD-ON Performing Organization Address [facility] Phon e Number [facility] - [address] [place] [address] (ABNORMAL) Prothrombin Time (PT) (04/19/2019 10:46 AM [facility]) [facility] Method Time Signature Prothrombin 58.0 (H) 9.4 - 12.5 04/19/2019 [facility] Time, P sec 11:14 AM [facility] INR 5.1 (CH) 0.9 - 1.1 04/19/2019 [facility] 11:14 AM [facility] Comment: ----ADDITIONAL INFORMATION---- Standard intensity warfarin therapeutic range: 2.0 to 3.0 ?? High intensity warfarin therapeutic rang e: 2.5 to 3.5 Specimen Anatomical Collection Method Collection Time Receive d Time (Source) Location / / Volume Laterality Blood (Blood, 04/19/2019 10:46 04/19/2019 Venous) AM [facility] 11:01 AM [facility] Renetta Greer APRN C.N.P., D.N.P. LAB BLOOD ADD-ON Performing Organization Address City/[facility] Phon e Number [facility] [address] [place] [address] Type and Screen (with reflex Antibody ID) (04/19/2019 10:45 AM [facility]) [facility] gist Method Time Signature ABORh A Pos Not 04/19/2019 [facility] applicable 11:25 AM [facility] Antibody Negative Negative 04/19/2019 [facility] Screen 11:40 AM [facility] Type & Screen 04/22/2019 04/19/2019 [facility] Expiration 23:59 11:25 AM [facility] Testing [place] DEFAULT 04/19/2019 STRM Location 11:00 AM [facility] Specimen Anatomical Collection Method Collection Time Receive d Time (Source) Location / / Volume Laterality Blood (Arm, 04/19/2019 10:45 04/19/2019 Right) AM [facility] 11:00 AM [facility] Renetta Greer APRN, C.N.P., D.N.P. LAB BLOOD BANK T EST ORDERABLES Performing Organization Address City/State/ZIP Code Phon e Number [facility] - [address] [place], [place] [address] [facility] [place] [address] [facility] [address] (ABNORMAL) Glucose, POCT (04/19/2019 10:44 AM [facility]) athologist Signature Glucose, POCT, 206 (H) 70 - 140 04/19/2019 [facility] B mg/dL 10:55 AM [facility] Site ARTLINE 04/19/2019 PCLX 10:55 AM [facility] Specimen Anatomical Collection Method Collection Time Receive d Time (Source) Location / / Volume Laterality Blood 04/19/2019 10:44 04/19/2019 AM [facility] 10:55 AM [facility] Unknown Provider LAB POCT ORDERABLES-MANUAL Performing Organization Address City/State/ZIP Code Phon e Number POC [facility] [address] [place] [address] [place] [address] [place] [facility] [address] (ABNORMAL) ACT (Activated Clotting Time), POCT (04/19/2019 10:41 AM [facility]) athologist Signature Activated 341 (H) 84 - 139 04/19/2019 PCS[facility] Clotting Time, sec 10:53 AM [facility] POCT Specimen Anatomical Collection Method Collection Time Receive d Time (Source) Location / / Volume Laterality Blood 04/19/2019 10:41 04/19/2019 AM [facility] 10:53 AM [facility] Unknown Provider LAB POCT ORDERABLES - DEVICE Performing Organization Address [facility] Phon e Number POC [facility] [address] [place], [place] [address] [place] [address] [place] [facility] [address] [place] [address] Echo - Intraprocedural Images Only (04/19/2019 8:52 AM [facility]) Specimen (Source) Anatomical Location Collection Method / Collectio n Time Received Time / Laterality Volume Narrative CV EIMS - 04/21/2019 8:52 AM [facility] Echocardiographic images obtained during EP. See EP report for findings. Marla Pham CV ECHO PROCEDURES Performing Organization Address [facility] Phon e Number CV EIMS NA INR, POCT (04/19/2019 8:37 AM [facility]) P athologist Signature INR, POCT, B 2.4 04/19/2019 [facility] 11:59 AM [facility] Comment: ----ADDITIONAL INFORMATION---- Standard intensity warfarin therapeutic range: 2.0 to 3.0 ?? High intensity warfarin therapeutic rang e: 2.5 to 3.5 Specimen Anatomical Collection Method Collection Time Receive d Time (Source) Location / / Volume Laterality 04/19/2019 8:37 AM 0 [facility] 11:59 AM [facility] Unknown Provider LAB POCT ORDERABLES - DEVICE Performing Organization Address [facility] Phon e Number POC [facility] [address] [place] [address] OUTPATIENT [place] [address] [place] [facility] 200 [facility] (ABNORMAL) Glucose, POCT (04/19/2019 8:37 AM [facility]) P athologist Signature Glucose, POCT, 224 (H) 70 - 140 04/19/2019 [facility] B mg/dL 8:41 AM [facility] Specimen Anatomical Collection Method Collection Time Receive d Time (Source) Location / / Volume Laterality Blood 04/19/2019 8:37 AM 0 8:41 [facility] AM [facility] Unknown Provider LAB POCT ORDERABLES-MANUAL Performing Organization Address [facility] Phon e Number POC [facility] [address] [place] [address] PCLX [facility] [place] [address] [place] [facility] [address] documented in this encounter Visit Diagnoses Diagnosis Atrial Fibrillation Paroxysmal (HCC) - P rimary Atrial Fibrillation Unspecified Flutter Atrial (HCC) Apnea Sleep Obstructive Diabetes Mellitus Type 2 Without Complic ation (HCC) Anticoagulant Therapy 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) Atrial Fibrillation Unspecified Flutter Atrial (HCC) Atrial Fibrillation Paroxysmal (HCC) Flutter Atrial (HCC) Atrial Fibrillation Paroxysmal (HCC) documented in this encounter Administered Medications Inactive Administered Medications - up to 3 most recent administrations Medication Order MAR Action Action Date Dose Rate Site acetaminophen tablet 1,000 mg Given 04/21/2019 9:55 AM [facility] 1,000 mg (TYLENOL) 1,000 mg, oral, Every 6 hours PRN, mild pain or score 1-3 of 10, Starting on Fri04/19/19 at 1502, Postprocedure (CV) benzocaine-menthol 15-3.6 mg per lozenge 1 Given 04/21 9:55 AM [facility] 1 lozenge lozenge (CEPACOL) 1 lozenge, oral, Every 4 hours PRN, sore throat, Starting on Fri04/19/19 at 0934, Postprocedure (CV) Given 04/21/2019 4:53 AM [facility] 1 lozenge Given 04/20/2019 9:14 PM [facility] 1 lozenge clotrimazole-betamethasone 1-0.05 % Given 04/21/2019 8:36 AM [facility] 1 application cream 1 application (LOTRISONE) 1 application, topical, 2 times daily, First dose on Fri04/19/19 at 2100, Postprocedure (CV) Given 04/20/2019 8:20 PM [facility] 1 application Given 04/20/2019 8:49 AM [facility] 1 application docusate sodium capsule 100 mg (COLACE) Given 04/21/2019 10:29 AM [facility] 100 mg 100 mg, oral, 2 times daily PRN, constipation, Starting on Fri04/19/19 at 1502, Postprocedure (CV), Do NOT crush or chew. DULoxetine DR capsule 30 mg (CYMBALTA) Given 04/21/2019 8:38 AM [facility] 30 mg 30 mg, oral, 2 times daily, First dose on Fri04/19/19 at 2100, Postprocedure (CV), See tube feeding guidelines for tube feeding administration instructions. Given 04/20/2019 8:13 PM [facility] 30 mg Given 04/20/2019 8:46 AM [facility] 30 mg ferrous sulfate tablet 65 mg of iron Given 04/21/2019 8:37 AM [facility] 65 mg of iron 65 mg of iron, oral, Daily, First dose on Fri04/20/19 at 0900, Postprocedure (CV) Given 04/20/2019 8:45 AM [facility] 65 mg of iron flecainide tablet 100 mg (TAMBOCOR) Given 04/21/2019 8:38 AM [facility] 100 mg 100 mg, oral, 2 times daily, First dose on Fri04/19/19 at 2100 Given 04/20/2019 8:13 PM [facility] 100 mg Given 04/20/2019 8:45 AM [facility] 100 mg fluticasone furoate 100 mcg/actuation inhaler Given 8:36 AM [facility] 1 puff 1 puff (ARNUITY ELLIPTA) 1 puff, inhalation, Daily, First dose on Fri04/20/19 at 0900, Postprocedure (CV), Rinse mouth with water after use to reduce aftertaste and incidence of candidiasis. Do not swallow. Given 04/20/2019 8:48 AM [facility] 1 puff furosemide injection 20 mg (LASIX) Given 04/20/2019 9:13 AM [facility] 20 mg 20 mg, intravenous, Once, On Fri04/20/19 at 0700, For 1 dose, Adults: Doses less than 120 mg: IV push over 20 mg/minute. Doses 120 mg or greater: IVPB at 4 mg/minute. Peds/Neonates: Doses less than 120 mg over 0.5 mg/kg/minute. Doses 120 mg or greater: IVPB at 4 mg/minute. furosemide injection 20 mg (LASIX) Given 04/20/2019 1:25 PM [facility] 20 mg 20 mg, intravenous, Once, On Fri04/20/19 at 1330, For 1 dose, N/a furosemide injection 40 mg (LASIX) Given 04/21/2019 6:30 AM [facility] 40 mg 40 mg, intravenous, Once, On Fri04/21/19 at 0700, For 1 dose, N/a levothyroxine tablet 25 mcg (SYNTHROID, Given 04/21/2019 6:30 AM [facility] 25 mcg LEVOTHROID) 25 mcg, oral, Daily before breakfast, First dose on Fri04/20/19 at 0700, Postprocedure (CV) Given 04/20/2019 5:37 AM [facility] 25 mcg magnesium sulfate in water IVPB 2 g New Bag 04/19/2019 6:06 PM [facility] 2 g 25 mL/hr 2 g, intravenous, at 25 mL/hr, Administer over 120 Minutes, Once, On Fri04/19/19 at 1745, For 1 dose, Over 2 hours. premix bag metFORMIN tablet 500 mg (GLUCOPHAGE) Given 04/21/2019 8:38 AM [facility] 500 mg 500 mg, oral, 2 times daily with meals, First dose on Fri04/19/19 at 1700 Given 04/20/2019 5:20 PM [facility] 500 mg Given 04/20/2019 8:46 AM [facility] 500 mg methyl salicylate-menthol 30-10 % cream 1 application (ICY HOT) 1 application, topical, Every 2 hour PRN, muscle/joint pain, Starting on Fri04/19/19 at 1628, @@ Generic Substitution for BenGay @@ @ metoprolol tartrate tablet 50 mg (LOPRES SOR) Given 04/21/2019 8:37 AM [facility] 50 mg 50 mg, oral, 2 times daily, First dose on Fri04/19/19 at 2100 Given 04/20/2019 8:13 PM [facility] 50 mg Given 04/20/2019 8:45 AM [facility] [address] capsule 40 mg (PriLOSEC) Given 04/21/2019 6:30 AM [facility] 40 mg 40 mg, oral, Daily before breakfast, First dose on Fri04/21/19 at 0700, Postprocedure (CV), Do NOT crush or chew. Capsule may be opened and the contents taken without crushing or chewing. potassium chloride ER tablet 40 mEq Given 04/19/2019 6:02 PM [facility] 40 mEq (KLORCON/K-TAB) 40 mEq, oral, Once, On Fri04/19/19 at 1630, For 1 dose, Give with food Swallow whole. Do NOT crush, chew, or split tablet. prochlorperazine injection 5 mg (COMPAZI NE) 5 mg, intravenous, Every 6 hours PRN, na usea, vomiting, Starting on Fri04/19/19 at 1744 promethazine injection 6.25 mg (PHENERGA N) 6.25 mg, intravenous, Every 6 hours PRN, nausea, vomiting, Starting on Fri04/19/19 at 1744 sennosides tablet 8.6 mg (SENOKOT) Given 04/21/2019 10:29 AM [facility] 8.6 mg 8.6 mg, oral, As needed, constipation, Starting on Fri04/19/19 at 0930, Postprocedure (CV) simvastatin tablet 20 mg (ZOCOR) Given 04/20/2019 8:13 PM [facility] 20 mg 20 mg, oral, Daily at bedtime, First dose on Fri04/19/19 at 2100, Postprocedure (CV) Given 04/19/2019 8:12 PM [facility] 20 mg sodium chloride 0.9 % injection 10 mL 10 mL, intravenous, As needed, line care , Peripheral Intravenous Catheter and Rapid Infusion Catheter, Starting on Fri at 2109, Prior to blood sampling, post blood transfusion or post blood sampling. sodium chloride 0.9 % injection 3 mL Given 04/20/2019 9:15 PM [facility] 3 mL 3 mL, intravenous, As needed, line care, Peripheral Intravenous Catheter and Rapid Infusion Catheter, Starting on Fri04/20/19 at 2109, Prior to and following infusion and between multiple consecutive infusions. sodium chloride 0.9 % injection 3 mL Given 04/21/2019 8:38 AM [facility] 3 mL 3 mL, intravenous, Every 12 hours scheduled, First dose on Fri04/21/19 at 0900, Peripheral Intravenous Catheter and Rapid Infusion Catheter: When no infusion to maintain patency. SUMAtriptan tablet 50 mg (IMITREX) Given 04/21/2019 4:44 AM [facility] 50 mg 50 mg, oral, Every 2 hour PRN, migraine, Starting on Fri04/19/19 at 0930, For 2 doses, Postprocedure (CV), SUMAtriptan oral was interchanged for rizatriptan Given 04/20/2019 11:29 AM [facility] 50 mg topiramate tablet 25 mg (TOPAMAX) Given 04/21/2019 8:38 AM [facility] 25 mg 25 mg, oral, Daily, First dose on Fri04/20/19 at 0900, Postprocedure (CV) Given 04/20/2019 8:46 AM [facility] 25 mg warfarin management (COUMADIN) oral, Daily, First dose (after last modification) on T 04/20/19 at 1700, Pharmacist to Dose: Yes, Target INR: 2.5 - 3.5, Comorb idities that constitute Warfarin Sensitivity: No known comorbidities that quiles ge warfarin sensitivity, Indication: Other, Explanatory Comment: atrial fibrill ation and LA thrombus, Therapy type: Resume Warfarin therapy warfarin tablet 5 mg (COUMADIN) 5 mg, oral, Once, On Fri04/21/19 at 1700, For 1 dose warfarin tablet 6 mg (COUMADIN) Given 04/19/2019 6:02 PM [facility] 6 mg 6 mg, oral, Once, On Fri04/19/19 at 1700, For 1 dose warfarin tablet 6 mg (COUMADIN) Given 04/20/2019 5:20 PM [facility] 6 mg 6 mg, oral, Once, On Fri04/20/19 at 1700, For 1 dose documented in this encounter Active and Recently Administered Medications Times are shown in [facility]. Scheduled Medication Order 04/19/2019 04/20/2019 04/21/2019 clotrimazole-betamethasone 1-0.05 % cream 1 applicatio n (LOTRISONE) 2011 (Given - Provider: Naren Michaels R.N.) 0849 (Given - Provider: Jhony smith R.N.)2019 (Given - Provider: Valerie Jaquez R.N.) 0836 (Given - Provider: Talya Duffy R.N.)0945 (MAY Hold - Provider: Transfer Provider, Automatic - Reason: Patient not available)0954 (MAY Unhold - Provider: Transfer Provider, Automatic) 1 application, topical, 2 times daily, F irst dose on Fri04/19/19 at 2100, Postprocedure (CV) DULoxetine DR capsule 30 mg (CYMBALTA) 2011 (Given - P rovider: Naren Michaels R.N.) 0846 (Given - Provider: Jhony smith RMary Ann)2012 (Given - Provider: Valerie Jaquez R.N.) 0838 (Given - Provider: Talya Duffy RMary Ann)0945 (BANNER Hold - Provider: Transfer Provider, Automatic - Reason: Patient not available)0954 (BANNER Unhold - Provider: Transfer Provider, Automatic) 30 mg, oral, 2 times daily, First dose o n Fri04/19/19 at 2100, Postprocedure (CV), See tube feeding guidelines for tube feeding administration instructions. ferrous sulfate tablet 65 mg of iron 084 5 (Given - Provider: Jhony Diego RMary Ann) 0837 (Given - Provider: Talya tierney R.N.)0945 (BANNER Hold - Provider: Transfer Provider, Automatic - Reason: Patient not available)0954 (BANNER Unhold - Provider: Transfer Provider, Automatic) 65 mg of iron, oral, Daily, First dose o n Fri04/20/19 at 0900, Postprocedure (CV) flecainide tablet 100 mg (TAMBOCOR) 2011 (Given - Prov ider: Naren Michaels REdilmaNEdilma) 0845 (Given - Provider: Jhony smith REdilmaNEdilma)2012 (Given - Provider: Valerie Jaquez REdilmaNEdilma) 0838 (Given - Provider: Talya tierney R.N.)0945 (BANNER Hold - Provider: Transfer Provider, Automatic - Reason: Patient not available)0954 (BANNER Unhold - Provider: Transfer Provider, Automatic) 100 mg, oral, 2 times daily, First dose on Fri04/19/19 at 2100 fluticasone furoate 100 mcg/actuation inhaler 1 puff (ARNUIT Y ELLIPTA) 0848 (Given - Provider: Jhony Diego RMary Ann) 0836 (Given - Provider: Talya Duffy REdilmaNEdilma)0945 (BANNER Hold - Provider: Transfer Provider, Automatic - Reason: Patient not available)0954 (BANNER Unhold - Provider: Transfer Provider, Automatic) 1 puff, inhalation, Daily, First dose on Fri04/20/19 at 0900, Postprocedure (CV), Rinse mouth with water after use to reduce aftertaste and incidence of candidiasis. Do not swallow. furosemide injection 20 mg (LASIX) (COMPLETED) 09 (Given - Provider: Jhony Diego R.N.) 20 mg, intravenous, Once, On Fri04/20/19 at 0700, For 1 dose, Adults: Doses less than 120 mg: IV push over 20 mg/minute. Doses 120 mg or greater: IVPB at 4 mg/minute. Peds/Neonates: Doses less than 120 mg over 0.5 mg/kg/minute. Doses 120 mg or greater: IVPB at 4 mg/ minute. furosemide injection 20 mg (LASIX) (COMPLETED) 1325 (Given - Provider: Jhony Diego R.N.) 20 mg, intravenous, Once, On Fri04/20/19 at 1330, For 1 dose, N/ a furosemide injection 40 mg (LASIX) (COMPLETED) 629 (Given - Provider: Candy Deluna R.N.) 40 mg, intravenous, Once, On Fri04/21/19 at 0700, For 1 dose, N/ a levothyroxine tablet 25 mcg (SYNTHROID, LEVOTHROID) 0537 (Given - Provider: Naren Michaels R.N.) 0630 (Given - Provider: Candy Deluna R.N.)0945 (MAY Hold - Provider: Transfer Provider, Automatic - Reason: Patient not available)0954 (BANNER Unhold - Provider: Transfer Provider, Automatic) 25 mcg, oral, Daily before breakfast, Fi rst dose on Fri04/20/19 at 0700, Postprocedure (CV) magnesium sulfate in water IVPB 2 g (COMPLETED) 1806 ( New Bag - Provider: Jhony Diego R.N.) 2 g, intravenous, at 25 mL/hr, Administe r over 120 Minutes, Once, On Fri04/19/19 at 1745, For 1 dose, Over 2 hours. premix bag metFORMIN tablet 500 mg (GLUCOPHAGE) 1802 (Given - Pro vider: Jhony Diego R.N.) 0846 (Given - Provider: Jhony smith RMary Ann)1720 (Given - Provider: Jhony Diego R.N.) 0838 (Given - Provider: Talya tierney REdilmaNEdilma)0945 (MAR Hold - Provider: Transfer Provider, Automatic - Reason: Patient not available)0954 (BANNER Unhold - Provider: Transfer Provider, Automatic) 500 mg, oral, 2 times daily with meals, First dose on Fri 0 at 1700 metoprolol tartrate tablet 50 mg (LOPRESSOR) 2011 (Giv en - Provider: Naren Michaels R.N.) 0845 (Given - Provider: Jhony smith REdilmaNEdilma)2012 (Given - Provider: Valerie Jaquez R.N.) 0837 (Given - Provider: Talya Duffy REdilmaNEdilma)0945 (BANNER Hold - Provider: Transfer Provider, Automatic - Reason: Patient not available)0954 (BANNER Unhold - Provider: Transfer Provider, Automatic) 50 mg, oral, 2 times daily, First dose on Fri04/19/[address] capsule 40 mg (PriLOSEC) 0630 (Given - Provider: Candy Deluna REdilmaNEdilma)0945 (BANNER Hold - Provider: Transfer Provider, Automatic - Reason: Patient not available)0954 (BANNER Unhold - Provider: Transfer Provider, Automatic) 40 mg, oral, Daily before breakfast, Fir st dose on Fri04/21/19 at 0700, Postprocedure (CV), Do NOT crush or chew. Capsule may be opened and the contents taken without crushing or chewing. potassium chloride ER tablet 40 mEq (KLORCON/K-TAB) (C OMPLETED) 1802 (Given - Provider: Jhony Diego RMary Ann) 40 mEq, oral, Once, On Fri04/19/19 at 16 30, For 1 dose, Give with food Swallow whole. Do NOT crush, chew, or split tablet. simvastatin tablet 20 mg (ZOCOR) 2011 (Given - Provide r: Naren Michaels R.N.) 2012 (Given - Provider: Valerie Jaquez R.N.) 0945 (BANNER Hold - Provider: Transfer Provider, Automatic - Reason: Patient not available)0954 (BANNER Unhold - Provider: Transfer Provider, Automatic) 20 mg, oral, Daily at bedtime, First dos e on Fri04/19/19 at 2100, Postprocedure (CV) sodium chloride 0.9 % injection 3 mL 0838 (Given - Provider: Talya Duffy REdilmaNEdilma)0945 (BANNER Hold - Provider: Transfer Provider, Automatic - Reason: Patient not available)0954 (BANNER Unhold - Provider: Transfer Provider, Automatic) 3 mL, intravenous, Every 12 hours schedu led, First dose on Fri04/21/19 at 0900, Peripheral Intravenous Catheter and Rapid Infusion Catheter: When no infusion to maintain patency. topiramate tablet 25 mg (TOPAMAX) 0846 ( Given - Provider: Jhony Diego R.N.) 0838 (Given - Provider: Talya tierney R.NEdilma)0945 (BANNER Hold - Provider: Transfer Provider, Automatic - Reason: Patient not available)0954 (BANNER Unhold - Provider: Transfer Provider, Automatic) 25 mg, oral, Daily, First dose on Fri04/20/19 at 0900, Postproce dure (CV) warfarin management (COUMADIN) 1700 (Due) 0 945 (BANNER Hold - Provider: Transfer Provider, Automatic - Reason: Patient not available)0954 (BANNER Unhold - Provider: Transfer Provider, Automatic) oral, Daily, First dose (after last kristi fication) on Fri04/20/19 at 1700, Pharmacist to Dose: Yes, Target INR: 2.5 - 3.5, Comorbidities that constitute Warfarin Sensitivity: No known comorbidities that change warfarin sensitivity, Indication: Other, Explanatory Comment: atrial fibrillation and LA thrombus, Therapy type: Resume Warfarin therapy warfarin tablet 5 mg (COUMADIN) 5 mg, oral, Once, On Fri04/21/19 at 1700, For 1 dose warfarin tablet 6 mg (COUMADIN) (COMPLETED) 1802 (Give n - Provider: Jhony Diego R.N.) 6 mg, oral, Once, On Fri04/19/19 at 1700, For 1 dose warfarin tablet 6 mg (COUMADIN) (COMPLETED) 1720 (Given - Provider: Jhony Diego R.N.) 6 mg, oral, Once, On Fri04/20/19 at 1700, For 1 dose PRN Medication Order 04/19/2019 04/20/2019 04/21/2019 acetaminophen tablet 1,000 mg (TYLENOL) 0945 (BANNER Hold - Provider: Transfer Provider, Automatic - Reason: Patient not available)0954 (BANNER Unhold - Provider: Transfer Provider, Automatic)0955 (Given - Provider: Talya Duffy R.NEdilma) 1,000 mg, oral, Every 6 hours PRN, mild pain or score 1-3 of 10, Starting on Fri04/19/19 at 1502, Postprocedure (CV) albuterol 90 mcg/actuation inhaler 2 puff (PROVENTIL HFA,VENTOLI N HFA) 0945 (BANNER Hold - Provider: Transfer Provider, Automatic - Reason: Patient not available)0953 (BANNER Unhold - Provider: Transfer Provider, Automatic) 2 puff, inhalation, Every 4 hours PRN, s hortness of breath, Starting Fri04/19/19 at 0928, Postprocedure (CV) alum-mag hydroxide-simeth 200-200-20 mg/5 mL suspension 15 mL (M AALOX) 0945 (BANNER Hold - Provider: Transfer Provider, Automatic - Reason: Patient not available)0953 (BANNER Unhold - Provider: Transfer Provider, Automatic) 15 mL, oral, Every 6 hours PRN, indigest ion, Starting Fri04/19/19 at 0928, Postprocedure (CV) atropine injection 0.5 mg 0945 ( BANNER Hold - Provider: Transfer Provider, Automatic - Reason: Patient not available)0954 (BANNER Unhold - Provider: Transfer Provider, Automatic) 0.5 mg, intravenous, Once as needed, for pulse less than 50 beats per minute, Starting Fri04/19/19 at 1502, For 1 dose, Postprocedure (CV) benzocaine-menthol 15-3.6 mg per lozenge 1 lozenge (CE PACOL) 2202 (Given - Provider: Naren Michaels R.N.) 0242 (Given - Provider: Naren mendiola R.N.)0913 (Given - Provider: Jhony Diego, R.N.)1720 (Given - Provider: Jhony Diego, R.N.)2114 (Given - Provider: Valerie Jaquez R.N.) 0453 (Given - Provider: Aria Green R.N.)0945 (BANNER Hold - Provider: Transfer Provider, Automatic - Reason: Patient not available)0954 (BANNER Unhold - Provider: Transfer Provider, Automatic)0955 (Given - Provider: Talya Duffy RMary Ann) 1 lozenge, oral, Every 4 hours PRN, sore throat, Starting on Fri04/19/19 at 0934, Postprocedure (CV) carboxymethylcellulose 0.5 % ophthalmic solution 1 drop (REFRESH PLUS) 0945 (BANNER Hold - Provider: Transfer Provider, Automatic - Reason: Patient not available)0954 (BANNER Unhold - Provider: Transfer Provider, Automatic) 1 drop, both eyes, 4 times daily PRN, dr campo eyes, Starting Fri04/19/19 at 0931, Postprocedure (CV) diazePAM tablet 2 mg (VALIUM) 09 45 (BANNER Hold - Provider: Transfer Provider, Automatic - Reason: Patient not available)0954 (BANNER Unhold - Provider: Transfer Provider, Automatic) 2 mg, oral, Every 2 hour PRN, anxiety, m uscle spasms, Starting Fri04/19/19 at 1502, For 2 doses, Postprocedure (CV), May repeat once if first dose ineffective. Until sheath removal. docusate sodium capsule 100 mg (COLACE) 0945 (BANNER Hold - Provider: Transfer Provider, Automatic - Reason: Patient not available)0954 (BANNER Unhold - Provider: Transfer Provider, Automatic)1038 (Not Given - Provider: Talya Duffy R.N. - Reason: Other) 100 mg, oral, 2 times daily PRN, constip ation, Starting 04/19/19 at 0934, Postprocedure (CV), Do NOT crush or chew. docusate sodium capsule 100 mg (COLACE) 0945 (BANNER Hold - Provider: Transfer Provider, Automatic - Reason: Patient not available)0954 (BANNER Unhold - Provider: Transfer Provider, Automatic)1029 (Given - Provider: Talya Duffy RMary Ann) 100 mg, oral, 2 times daily PRN, constip ation, Starting on Fri04/19/19 at 1502, Postprocedure (CV), Do NOT crush or chew. fentaNYL injection 25 mcg (SUBLIMAZE) 0945 (BANNER Hold - Provider: Transfer Provider, Automatic - Reason: Patient not available)0954 (BANNER Unhold - Provider: Transfer Provider, Automatic) 25 mcg, intravenous, Every 2 hour PRN, m oderate pain or score 4-6 of 10, Starting Fri04/19/19 at 1502, Postprocedure (CV), May repeat once in dosing interval, if patient unable to take oral analgesics or oral analgesics are ineffective fentaNYL injection 50 mcg (SUBLIMAZE) 0945 (BANNER Hold - Provider: Transfer Provider, Automatic - Reason: Patient not available)0954 (BANNER Unhold - Provider: Transfer Provider, Automatic) 50 mcg, intravenous, Every 2 hour PRN, s evere pain or score 7-10 of 10, Starting Fri04/19/19 at 1502, Postprocedure (CV), May repeat once in dosing interval, if patient unable to take oral analgesics or oral analgesics are ineffective lidocaine 10 mg/mL (1 %) injection 1 mL (XYLOCAINE) (C ANCELED) 1015 (Given - Provider: Porfirio Villegas M.D. - Comment: R&L Groin)1346 (Given - Provider: Porfirio Villegas M.D. - Comment: groin access sites) 1 mL, intradermal, As needed, with any s khanh manipulation. (May repeat twice up to 1 mL each time if patient complains of pain or discomfort at injection site), Starting Fri04/19/19 at 0911, Intraprocedure (CV) melatonin tablet 3 mg 0945 (BANNER Hold - Provider: Transfer Provider, Automatic - Reason: Patient not available)0954 (BANNER Unhold - Provider: Transfer Provider, Automatic) 3 mg, oral, Bedtime PRN, sleep, Starting Fri04/19/19 at 0934, Postprocedure (CV) methyl salicylate-menthol 30-10 % cream 1 application (ICY HOT) 0945 (BANNER Hold - Provider: Transfer Provider, Automatic - Reason: Patient not available)0954 (BANNER Unhold - Provider: Transfer Provider, Automatic) 1 application, topical, Every 2 hour PRN , muscle/joint pain, Starting on Fri04/19/19 at 1628, @@ Generic Substitution for BenGay @@@ midazolam (PF) injection 1 mg (VERSED) 0945 (BANNER Hold - Provider: Transfer Provider, Automatic - Reason: Patient not available)0954 (BANNER Unhold - Provider: Transfer Provider, Automatic) 1 mg, intravenous, Every 2 hour PRN, anx iety, muscle spasms, Starting Fri04/19/19 at 1502, For 2 doses, Postprocedure (CV), for over 2 minutes. May repeat x1 dosing interval. Patient must be NPO for 2 hours prior to giving. Until sheath removal. naloxone injection 0.2 mg (NARCAN) 0945 (BANNER Hold - Provider: Transfer Provider, Automatic - Reason: Patient not available)0954 (BANNER Unhold - Provider: Transfer Provider, Automatic) 0.2 mg, intravenous, As needed, respirat ory depression, Starting Fri04/19/19 at 1502, Postprocedure (CV), For respiratory rate less than 8 breaths per minute or RASS score of -3, -4, -5. Apply oxygen to keep oxygen saturations greater than 90% and notify service. oxyCODONE IR tablet 5 mg (ROXICODONE) 0945 (BANNER Hold - Provider: Transfer Provider, Automatic - Reason: Patient not available)0954 (BANNER Unhold - Provider: Transfer Provider, Automatic) 5 mg, oral, Every 6 hours PRN, moderate pain or score 4-6 of 10, Starting Fri04/19/19 at 1502, Postprocedure (CV), If acetaminophen ineffective and patient able to take oral analgesics polyethylene glycol powder packet 17 g (MIRALAX) 0945 (BANNER Hold - Provider: Transfer Provider, Automatic - Reason: Patient not available)0954 (BANNER Unhold - Provider: Transfer Provider, Automatic) 17 g, oral, As needed, constipation, Sta rting Fri04/19/19 at 0929, For 237 days, Postprocedure (CV), Dissolve in 240 mLs (8 ounces) of water prior to giving. Avoid mixing with starch-based thickened liquids. prochlorperazine injection 5 mg (COMPAZINE) 0945 (BANNER Hold - Provider: Transfer Provider, Automatic - Reason: Patient not available)0954 (BANNER Unhold - Provider: Transfer Provider, Automatic) 5 mg, intravenous, Every 6 hours PRN, na usea, vomiting, Starting on Fri04/19/19 at 1744 promethazine injection 6.25 mg (PHENERGAN) 0945 (BANNER Hold - Provider: Transfer Provider, Automatic - Reason: Patient not available)0954 (BANNER Unhold - Provider: Transfer Provider, Automatic) 6.25 mg, intravenous, Every 6 hours PRN, nausea, vomiting, Starting on Fri04/19/19 at 1744 sennosides tablet 8.6 mg (SENOKOT) 0945 (BANNER Hold - Provider: Transfer Provider, Automatic - Reason: Patient not available)0954 (BANNER Unhold - Provider: Transfer Provider, Automatic)1029 (Given - Provider: Talya Duffy REdilmaNEdilma) 8.6 mg, oral, As needed, constipation, S tarting on Fri04/19/19 at 0930, Postprocedure (CV) sodium chloride 0.9 % injection 10 mL 0945 (BANNER Hold - Provider: Transfer Provider, Automatic - Reason: Patient not available)0954 (BANNER Unhold - Provider: Transfer Provider, Automatic) 10 mL, intravenous, As needed, line care , Peripheral Intravenous Catheter and Rapid Infusion Catheter, Starting on Fri04/20/19 at 2109, Prior to blood sampling, post blood transfusion or post blood sampling. sodium chloride 0.9 % injection 3 mL 211 5 (Given - Provider: Valerie Jaquez REdilmaNEdilma) 0945 (BANNER Hold - Provider: Transfer Prov ider, Automatic - Reason: Patient not available)0954 (BANNER Unhold - Provider: Transfer Provider, Automatic) 3 mL, intravenous, As needed, line care, Peripheral Intravenous Catheter and Rapid Infusion Catheter, Starting on Fri04/20/19 at 2109, Prior to and following infusion and between multiple consecutive infusions. SUMAtriptan tablet 50 mg (IMITREX) (COMPLETED) 1129 (Given - Provider: Jhony Diego, R.N.) 0444 (Given - Provider: Candy Deluna REdilmaN.) 50 mg, oral, Every 2 hour PRN, migraine, Starting on Fri04/19/19 at 0930, For 2 doses, Postprocedure (CV), SUMAtriptan oral was interchanged for rizatriptan documented in this encounter Additional Health Concerns Assessment Noted Time PHQ-9 Depression Total Score: 11 05/04/2013 4:05 PM CS T documented as of this encounter Care Teams Chicken Cutter Relationship Specialty Start Date End Date Elsewhere, Pcp PCP - General Internal Medicine 07/27/18 documented as of this encounter
--- OUTSIDE RECORDS SUMMARY | 2021-12-27 05:22 | XMS_ITS | Encounter Summary ---
:1955 Author Organization [facility] Address [address] [place] [address] Care Team Providers Name Role Phone Elsewhere, Pcp Primary Care Provider Unavailable Encounter Details Date Type Department Care Team Description 04/19/2019 Clinical Communication Outpatient Surgery and Alberto Mcgowan Procedural Admissions D, R.N. in [address] [place] [phone] [place] [address] Social History Tobacco Use Types Packs/Day Years [...] do you attend catholic or Never 2018 hindu services? Do you belong to any clubs [...] documented as of this encounter Care Teams Manager Hvac Relationship Specialty Start Date End Date Elsewhere, Pcp PCP - General Internal Medicine 07/27/18 documented as of this encounter
[2021-12-27 05:23] LABS: Basophils Absolute Auto 0.11 K/uL (0.00-0.30); Basophils Percent Auto 1.3 % (0.0-3.0); Eosinophils Absolute Auto 0.44 K/uL (0.00-0.50); Eosinophils Percent Auto 5.1 % (0.0-7.0); Hematocrit 36.7 % (33.0-51.0); Immature Granulocytes Abs Auto 0.01 K/uL (0.00-0.30); Lymphocytes Absolute Auto 3.68 K/uL (0.90-2.90); Lymphocytes Percent Auto 42.6 % (20-44); Mean Corpuscular HGB Conc 33 gm/dL (32-36); Mean Corpuscular Hemoglobin 29 pg (26-34); Mean Corpuscular Volume 88 fL (80-100); Monocytes Percent Auto 7.2 % (0.0-11.0); Neutrophils Absolute Auto 3.77 K/uL (1.7-7.0); Neutrophils Percent Auto 43.7 % (42.0-72.0); Platelet Count* 470 K/uL (140-440); RDW Coefficient of Variation % 13.8 % (11.5-15.5); Red Blood Count 4.19 m/uL (4.00-5.20); White Blood Count* 8.63 K/uL (4.50-11.00)
--- OUTSIDE RECORDS SUMMARY | 2021-12-27 05:23 | XMS_ITS | Encounter Summary ---
:1955 Author Organization [facility] Address [address] [place] [address] Care Team Providers Name Role Phone Elsewhere, Pcp Primary Care Provider Unavailable Reason for Visit Reason Onset Date Comments Plan update 01/25/2019 Communication Encounter Details Date Type Department Care Team Description 01/25/2019 Clinical Department of [facility], Plan update Communication Cardiovascular Porfirio (Communicati on) Medicine in [facility] , [place] [address] [address] [facility] [address] [place] [phone] Social History Tobacco Use Types Packs/Day Years [...] or relatives? How often do you attend baptist or Never 2018 faith services? Do you belong to any clubs or No 02/26/2019 organizations such as baptist groups, unions, fraternal or athletic groups, or [...] or getting things needed for daily living? Sex Assigned at Date Recorded Not on file documented as of this encounter Miscellaneous Notes Telephone Encounter - Diana Navas - 01/25/2019 1:38 PM CST Sierra from [facility] called as she wondered the plan for patient and at what point would be pacemaker placement. Please call Sierra at [phone] Thank you Diana (Answering for Deepti) FARMER documented in this encounter Plan of Treatment Not on filedocumented as of this encounter Visit Diagnoses Not on filedocumented in this encounter Additional Health Concerns Assessment Noted Time PHQ-9 Depression Total Score: 11 05/04/2013 4:05 PM CS T documented as of this encounter Care Teams Non Food Receiving Clerk Relationship Specialty Start Date End Date Elsewhere, Pcp PCP - General Internal Medicine 07/27/18 documented as of this encounter
--- OUTSIDE RECORDS SUMMARY | 2021-12-27 05:23 | XMS_ITS | Encounter Summary ---
:1955 Author Organization [facility] Address [address] [place] [address] Care Team Providers Name Role Phone Elsewhere, Pcp Primary Care Provider Unavailable Reason for Referral MRI/CAT/PET Scan (Routine) - Closed Specialty Diagnoses / Procedures Referred By Contact Refer red To Contact Radiology Diagnoses Atrial Fibrillation Unspecified [facility] Procedures CT Cardiac Angiogram Pulmonary Veins with IV M.D. [address] [place] [address] Referral ID Status Reason Start Date Expiration Date Visits Requ ested Visits Authorized [id number] Closed 03/04/2019 03/03/2020 1 1 ARCH PHARMACIST Outpatient (Routine) - Closed Specialty Diagnoses / Procedures Referred By Contact Refer red To Contact Diagnoses Atrial Fibrillation Unspecified [facility] Procedures ECG 12 Lead M.D. [address] [place] [address] Referral ID Status Reason Start Date Expiration Date Visits Requ ested Visits Authorized [id number] Closed 03/04/2019 03/03/2020 1 1 ARCH PHARMACIST Reason for Visit Reason Onset Date Comments schedule PVI ablation with Dr. Chapman 03/04/20 19 Encounter Details Date Type Department Care Team Description 03/04/2019 Clinical Department of ashvin Quezada PVI Communication Cardiovascular op[address] [facility] [place] [address] [facility] Marie [address] [place] [phone] Social History Tobacco Use Types Packs/Day Years [...] do you attend denominational or Never 2018 restorationism services? Do you [...] this encounter Miscellaneous Notes Telephone Encounter - Delisa Lyons - 03/09/2019 10:47 AM CST Juan Houston, The only time we are able to schedule with Dr. Villegas would be at 4 PM on 04/16 which would not allow time for a MICHAEL to be done and they do not do any TEEs in the afternoons at all on Fridays. How would you like for me to proceed? Thank you, Delisa ARCH PHARMACIST Telephone Encounter - Rosemarie Quezada R.N. - 03/04/2019 11:32 AM RESEARCH PHARMACIST PATIENT INFORMATION- This was coordinated with Sierra Allen who coordinates appointments at facility the patient resides Procedure Date: 04/19/2019 Procedure status: confirmed Preliminary Workup Date(s): 04/16/2019 Consult: seen by Dr. Villegas on 02/26/2019- Dr. Villegas will need to see prior to ablation Referral Source: self-referred Referring Physician (if internal): DENTON Procedure Physician: Carolyn Arrhythmia Type: PVI- persistent AF PATIENT HISTORY Hypertension: yes Diabetes Mellitus: Yes, metformin Known allergy to contrast dye or iodine: no Prescriptions for contrast sensitivity: Not indicated Past cardiac surgeries: no Obstructive sleep apnea: yes- Advised to bring CPAP with her to the hospital Previous cardiac ablation: no Pacemaker / Implantable cardioverter defibrillator: no CHADS2-Vasc Score-4 for gender, Hypertension, , DM and HF MEDICATION CURRENTLY TAKING FOR CARDIAC CONDITION Low-molecular weight heparin bridge: Not indicated Currently anticoagulated: Warfarin- advised to continue with INR at low end of goal range od 2.0-2.5the week of the procedure Comments: Advised to get INR checked on 04/12 or 04/13 and have dosing adjusted to above goal range. We will check INR again on 04/16/2019 and make any further adjustments MEDICATIONS Metoprolol (Lopressor) - patient taking to treat hypertension so medication not to be stopped and Digoxin (Lanoxin) - patient to stop medication 8 days prior to procedure and Metformin and Metformin containing medications - patient to stop medication morning of procedure TESTS NEEDED PRIOR TO ADMISSION Orders Placed This Encounter Procedures ??? CT Cardiac Angiogram Pulmonary Veins with IV ??? Sodium ??? Potassium ??? Creatinine with Estimated GFR ??? BUN (Blood Urea Nitrogen) ??? ALT (Alanine Aminotransferase) ??? CBC without Differential ??? PT (Prothrombin Time) with INR ??? Type and Screen (with reflex Antibody ID) ??? ECG 12 Lead ??? Echo Transesophageal (MICHAEL) Holter 10/20/2018- no Af, Labs 12/11/2018 GFR >60, TSH 4.8 on 06/29/2018, echo 10/20/2018 EF 55%, CXR 06/29/2018, ECG 02/26/2019 and 11/25/2018 shows AF, echo(MICHAEL)01/19/2019 EF 55%, no clot- had clot in previous MICHAEL's. EDUCATION REVIEWED I instructed the patient regarding upcoming PVI ablation. We discussed the following topics: callingin for report time, fasting instructions (per ???Preparing for your Heart Rhythm Procedure?? 2808-64), checking in to admissions, what to expect for the ablation procedure, anticipated course of hos pitalization, remaining in town 1 night post hospital discharge, bathing instructions, and activity/weight lifting restrictions following the procedure. The patient verbalized understanding and agreement with instructions. All questions were answered. [facility] Service Line [facility] Backup Line PLAN Disposition/Recommendation: protocol orders Education: patient/caller able to teach back Caller agreeable to plan of care: yes The following references were used: patient education resources: title Preparing for Your Heart Rhythm Procedure [id number] and [facility] protocols: title [facility] [id number] and Medication Management for Patients Undergoing Heart Ablation and LEft Atrial Appendage Occlusion [id number] ARCH PHARMACIST documented in this encounter Plan of Treatment Not on filedocumented as of this encounter Results ECG 12 Lead (04/16/2019 10:49 AM RESEARCH PHARMACIST) [facility] Method Time Signature Ventricular 91 BPM MUSE Rate ECG/Min QRSD Interval 92 ms MUSE QT Interval 360 ms MUSE QTC Interval 442 ms MUSE R Alto 91 degrees MUSE T Wave Alto -80 degrees MUSE CODED Atrial MUSE DIAGNOSIS fibrillation Specimen Anatomical Collection Method Collection Time Receive d Time (Source) Location / / Volume Laterality 04/16/2019 10:49 04/16/2019 AM RESEARCH PHARMACIST 10:55 AM RESEARCH PHARMACIST Impressions MUSE - 04/16/2019 10:55 AM RESEARCH PHARMACIST Atrial fibrillation Rightward axis ST and T wave abnormality, consider infe rolateral ischemia When compared with ECG of 26-FEB-2019 13 :32, T waves have changed Reviewed by SPENCER Ingram Narrative This result has an attachment that is no t available. Procedure Note Hernandez Mcfadden M.D. - 04/16/2019Fo rmatting of this note might be different from the original. IMPRESSION: Atrial fibrillation Rightward axis ST and T wave abnormality, consider infe rolateral ischemia When compared with ECG of 26-FEB-2019 13 :32, T waves have changed Reviewed by SPENCER Ignram Porfirio Villegas M.D. ECG ORDERABLES Performing Organization Address City/State/ZIP Code Phon e Number MUSE MUSE NA CT Cardiac Angiogram Pulmonary Veins with IV (04/16/2019 10:12 AM RESEARCH PHARMACIST) Anatomical Region Laterality Modality Cardiac, Cardiovascular RST LOS, N/A Compute d Tomography, Computed Thoracic ARZ LOS, Cardiovascular FLA Godwin ography LOS Specimen (Source) Anatomical Collection Method Collection Time Re ceived Time Location / / Volume Laterality 04/16/2019 10:05 AM RESEARCH PHARMACIST Impressions 04/16/2019 10:21 AM RESEARCH PHARMACIST 1. Normal variant pulmonary vein anatomy with separate drainage of the inferior lingular vein to the left atrium immedia tely cranial to the left inferior pulmonary vein. Two right pulmonary vein s. 2. Negative for pulmonary vein stenosis. 3. Negative for left atrial thrombus inc luding the appendage. 4. Severe biatrial enlargement, left gre ater than right. 5. New small focus of clustered nodulari ty in the posterior basal left lower lobe with largest nodule measuring 4 mm, indeterminate but likely infectious or inflammatory. Narrative 04/16/2019 10:21 AM RESEARCH PHARMACIST EXAM: ??CT CARDIAC ANGIOGRAM PULMONARY VEINS WITH IV CONTRAST COMPARISON: ??[facility] CT chest witho ut intravenous contrast 02/05/2012. ? FINDINGS: ? PULMONARY VEINS: Two right and three left pulmonary veins draining to the left atrium with separate drainage of the inferior lingul ar vein immediately cranial to the left inferior pulmonary vein. The pulmonary v eins are widely patent. CARDIOVASCULAR FINDINGS: ?? Severe biatrial enlargement, left greate r than right. Negative for left atrial thrombus including the appendage. The in complete opacification of the distal left atrial appendage on the arterial ph ase fills in on delayed imaging consistent with slow contrast mixing. ADDITIONAL FINDINGS: ? New small focus of clustered nodularity in the posterior basal left lower lobe (series 6 images 234-256) with the large st nodule measuring 4 mm (image 237). Tiny calcified granuloma left lower lobe . Moderate esophageal hiatal hernia. Diffuse hepatic steatosis. Hypertrophic degenerative change thoracic spine. Mild anterior compression of T8, unchanged. C holecystectomy clips evident on job forwarder topogram. Procedure Note Nikunj Bolton M.D. - 04/16/2019Formattin g of this note might be different from the original. EXAM: CT CARDIAC ANGIOGRAM PULMONARY VEI NS WITH IV CONTRAST COMPARISON: [facility] CT chest without intravenous contrast 02/05/2012. FINDINGS: PULMONARY VEINS: Two right and three left pulmonary veins draining to the left atrium with separate drainage of the inferior lingul ar vein immediately cranial to the left inferior pulmonary vein. The pulmonary v eins are widely patent. CARDIOVASCULAR FINDINGS: Severe biatrial enlargement, left greate r than right. Negative for left atrial thrombus including the appendage. The in complete opacification of the distal left atrial appendage on the arterial ph ase fills in on delayed imaging consistent with slow contrast mixing. ADDITIONAL FINDINGS: New small focus of clustered nodularity in the posterior basal left lower lobe (series 6 images 234-256) with the large st nodule measuring 4 mm (image 237). Tiny calcified granuloma left lower lobe . Moderate esophageal hiatal hernia. Diffuse hepatic steatosis. Hypertrophic degenerative change thoracic spine. Mild anterior compression of T8, unchanged. C holecystectomy clips evident on job forwarder topogram. IMPRESSION: 1. Normal variant pulmonary vein anatomy with separate drainage of the inferior lingular vein to the left atrium immedia tely cranial to the left inferior pulmonary vein. Two right pulmonary vein s. 2. Negative for pulmonary vein stenosis. 3. Negative for left atrial thrombus inc luding the appendage. 4. Severe biatrial enlargement, left gre ater than right. 5. New small focus of clustered nodulari ty in the posterior basal left lower lobe with largest nodule measuring 4 mm, indeterminate but likely infectious or inflammatory. Porfirio TEE CT PROCEDURES documented in this encounter Visit Diagnoses Diagnosis Atrial Fibrillation Unspecified - Primar y Atrial Fibrillation Unspecified documented in this encounter Additional Health Concerns Assessment Noted Time PHQ-9 Depression Total Score: 11 05/04/2013 4:05 PM PAGE T documented as of this encounter Care Teams Fence Manufacture Supervisor Relationship Specialty Start Date End Date Elsewhere, Pcp PCP - General Internal Medicine 07/27/18 documented as of this encounter
--- OUTSIDE RECORDS SUMMARY | 2021-12-27 05:23 | XMS_ITS | Encounter Summary ---
:1955 Author Organization [facility] Address [address] [place] [address] Care Team Providers Name Role Phone Elsewhere, Pcp Primary Care Provider Unavailable Reason for Visit Outpatient (Routine) - Canceled Specialty Diagnoses / Procedures Referred By Contact Refer red To Contact Social Work Diagnoses Thrombus Atrial (HCC) Flutter Atrial (HCC) Porfirio Villegas [facility] [place] [address] [place] [phone] Referral ID Status Reason Start Date Expiration Date Visits V isits Requested Authorized [id number] Canceled 11/25/2018 11/25/2019 1 1 Encounter Details Date Type Department Care Team Description 11/26/2018 Clinical Communication Department of Porfirio Fraga M.D. [address] [place] [phone] No Show Work in [place], Teresa, Andrade Mccall.C.S.W., M.S.WEdilma [address] [place] [phone] [phone] Social History Tobacco Use Types Packs/Day Years [...] do you attend shinto or Never 2018 restoration services? Do you [...] this encounter Miscellaneous Notes Telephone Encounter - Jhony Moore L.I.C.S.W., M.S.W. - 11/27/2018 11:05 AM CDT Left message to return call to office per appointment on calendar. Left call back number for patient to call office [phone] documented in this encounter Plan of Treatment Not on filedocumented as of this encounter Visit Diagnoses Not on filedocumented in this encounter Additional Health Concerns Assessment Noted Time PHQ-9 Depression Total Score: 11 05/04/2013 4:05 PM CS T documented as of this encounter Care Teams Restaurant Delivery Driver Relationship Specialty Start Date End Date Elsewhere, Pcp PCP - General Internal Medicine 07/27/18 documented as of this encounter
--- OUTSIDE RECORDS SUMMARY | 2021-12-27 05:23 | XMS_ITS | Encounter Summary ---
:1955 Author Organization [facility] Address [address] [place] [id number] Care Team Providers Name Role Phone Elsewhere, Pcp Primary Care Provider Unavailable Reason for Visit Appointment Request (Routine) - Closed Specialty Diagnoses / Procedures Referred By Contact Refer red To Contact Cardiovascular Disease Diagnoses Atrial Fibrillation Unspecified Referral ID Status Reason Start Date Expiration Date Visits Requ ested Visits Authorized [id number] Closed 03/09/2019 03/08/2020 1 Encounter Details Date Type Department Care Team Description 04/16/2019 Office Visit Department of [facility], Atrial Fibrill ation Other Persistent (HCC) (Primary Dx); Cardiovascular Medicine Lenka Monroy ertensive Heart Disease With Heart Failure (HCC); in [facility] nasim Kellogg Diabetes Mellitus Type 2 Without Complic ation (HCC) 200 [facility] 200 [place] [address] [place], [place] [phone] Social History Tobacco Use Types Packs/Day Years [...] do you attend alevism or Never 2018 taoist services? Do you belong to any clubs or No 02/26/2019 organizations such as alevism groups, unions, [employer] or athletic groups, or school groups? How [...] Sign Reading Time Taken Comments Blood Pressure 149/96 04/16/2019 3:55 PM PHARMACIST INTERN Pulse 88 04/16/2019 3:55 PM PHARMACIST INTERN Temperature - - Respiratory Rate - - Oxygen Saturation - - Inhaled Oxygen Concentration - - Weight - - Height - - Body Mass Index - - documented in this encounter H&P Notes Porfirio Villegas M.D. - 04/16/2019 4:00 PM CST REASON FOR VISIT AF, pre-ablation HISTORY OF PRESENT ILLNESS Ms. Metcalf returns for follow-up prior to her scheduled ablation procedure. She is well known to me from prior visits. She is a very pleasant 64-year-old woman with history of atrial fibrillation, left atrial appendage thrombus (resolved), hypertension, hyperlipidemia, type 2 diabetes, sleep apnea, mitral regurgitation, diastolic dysfunction, cognitive impairment. We last met in the clinic in [facility] and at that time we decided to proceed with catheter ablation for atrial fibrillation due to limitations of medical therapy and her continued symptomatic status. Her son Yaya was present during that appointment whom she identifies as her next of kin. Informed consent for the procedure was signed by both the patient and her son during that visit. She remains symptomatic particularly with exertion with continued exertional dyspnea. She continues on daily Lasix with which she reports brisk diuretic response. She has been anticoagulated with warfarin and we have received therapeutic INR values over the last several months with the exception of anINR 1.9 on 04/01. She has completed most of her standard pre-ablation testing. CT scan of the heart shows 2 right and 3 left pulmonary veins draining to the left atrium with separate drainage of the inferior lingular vein immediately cranial to the left inferior pulmonary vein. There is severe biatrial enlargement which has been known previously. There is no left atrial appendage thrombus. There is a mention of new small focus of clustered nodularity in the posterior basal left lower lobe with the largest nodule measuring 4 mm. The impression is that this is likely inflammatory or infectious. The patient denies any recent infectious symptoms including cough, fevers, hemoptysis, pleuritic discomfort, sputum production. She does report that she has had persistent sinus congestion over the last several weeks but nothing to suggest pneumonia. Her ECG today shows atrial fibrillation with an average ventricular rate of 91 beats per minute. PAST MEDICAL HISTORY she has a past medical history of Arthritis Rheumatoid (HCC), Asthma NOS, Cataract, Degeneration Macular, Diabetes Mellitus NOS, Fibromyalgia, Gastroesophageal Reflux Disease NOS, Glaucoma, Irritable Bowel Syndrome Without Diarrhea, Migraine Headache, Osteoporosis, and Sleep Apnea. Current Outpatient Medications: ??? albuterol (PROAIR HFA) 90 mcg/actuation inhaler, Inhale 1-2 puffs every 4 (four) hours as neededfor shortness of breath., Disp: 1 Inhaler, Rfl: 11 ??? alum-mag hydroxide-simeth (MAALOX) 200-200-20 mg/5 mL suspension, Take 15-30 mL by mouth every 6(six) hours as needed for indigestion., Disp: , Rfl: ??? clotrimazole-betamethasone (LOTRISONE) 1-0.05 % cream, Apply 1 application topically 2 (two) times a day., Disp: , Rfl: ??? digoxin (LANOXIN) 250 mcg tablet, Take 250 mcg by mouth daily., Disp: , Rfl: ??? DULoxetine (CYMBALTA) [address] capsule, Take 1 capsule (30 mg total) by mouth 2 (two) times a day. For Fibromyaligia, Disp: , Rfl: ??? famotidine (PEPCID) 20 mg tablet, Take 20 mg by mouth daily., Disp: , Rfl: ??? ferrous sulfate 325 mg (65 mg iron) DR tablet, Take 1 tablet (65 mg of iron total) by mouth daily. For anemia, Disp: , Rfl: ??? fluticasone furoate (ARNUITY ELLIPTA) 100 mcg/actuation diskus inhaler, Inhale 1 puff daily. Asthma, Disp: , Rfl: ??? furosemide (LASIX) 20 mg tablet, Take 20 mg by mouth daily., Disp: , Rfl: ??? levothyroxine (SYNTHROID, LEVOTHROID) 25 mcg tablet, Take 25 mcg by mouth every morning before breakfast., Disp: , Rfl: ??? metFORMIN (GLUCOPHAGE) 500 mg tablet, Take 1 tablet (500 mg total) by mouth 2 (two) times a day with meals. For Diabetes Mellitus, Disp: , Rfl: ??? methyl salicylate-menthol (BENGAY) ointment, Apply 1 application topically every 2 (two) hours as needed for muscle/joint pain., Disp: , Rfl: ??? metoprolol tartrate (LOPRESSOR) 50 mg tablet, Take 2 tablets (100 mg total) by mouth 2 (two) times a day. For heart rate control., Disp: , Rfl: ??? nitroglycerin (NITROSTAT) 0.4 mg SL tablet, Place 0.4 mg under the tongue every 5 (five) minutesas needed for chest pain., Disp: , Rfl: ??? polyethylene glycol (MIRALAX) 17 gram powder packet, Take 1 packet (17 g total) by mouth 2 (two)times a day. Dissolve each 17 g dose in 240 mLs (8 ounces) of beverage. (Patient taking differently:Take 17 g by mouth as needed. Dissolve each 17 g dose in 240 mLs (8 ounces) of beverage. ), Disp: 60packet, Rfl: 11 ??? rizatriptan (MAXALT) 5 mg tablet, Take [...] ??? topiramate (TOPAMAX) 25 mg tablet, Take 1 tablet (25 mg total) by mouth 2 (two) times a day. Forheadaches. (Patient taking differently: Take 25 mg by mouth daily. For headaches. ), Disp: , Rfl: ??? warfarin (COUMADIN) 5 mg tablet, Take 1 tablet (5 mg total) by mouth daily. For left atrial thrombus; INR goal 2.5-3.5. Next INR check on 07/24/18, to take as directed with INR recheck week of 07/27/18, resume management as per previous homegoing care plan. (Patient taking differently: Take 5 mg by mouth daily. For left atrial thrombus; INR goal 2.5-3.5. Friday, Friday, Friday, Friday, Friday ), Disp: 30 tablet, Rfl: 0 ??? warfarin (COUMADIN) 6 mg tablet, Take 6 mg by mouth. Take as directed per After Visit Summary. Friday, , Disp: , Rfl: No current facility-administered medications for this visit. ALLERGIES she has No Known Allergies. ROS: Review of 14 systems was negative except as noted above. PHYSICAL EXAMINATION BP (!) 149/96 (BP Location: Left arm, Patient Position: Sitting, Cuff Size: Regular) Pulse 88 Head and neck: Normal Lungs: Clear to auscultation bilaterally CV: Difficult to assess JVP due to body habitus. Irregularly irregular, normal S1 S2; no murmurs Abdomen: Obese, soft, non-tender. Extremities: Trace pretibial edema, well perfused. IMPRESSION/REPORT/PLAN #1 Atrial fibrillation, early persistent?? #2 Tachycardia-induced cardiomyopathy, resolved?? #3 Sinus node dysfunction with likely chronotropic incompetence #4 Mitral regurgitation #5 Resolved left atrial appendage thrombus?? #6 Left atrial enlargement?? #7 Hypertension #8 Hyperlipidemia?? #9 Type 2 diabetes?? #10 Medically complicated obesity #11 CHAPITO, incompletely treated?? #12 Diagnosis of personality disorder and history of head injury as well as depression, anxiety, andcognitive dysfunction ?? #11 Currently living in a long-term facility under direct supervision?? I again discussed the procedure with the patient and she wishes to proceed. She has also reviewed patient educational material that I provided during our last visit. She had no further questions today. I reviewed again with the patient the risks of the procedure and a new informed consent was signed including also for MICHAEL that will need to be performed in the morning of the procedure before we proceed. She has a history of left atrial appendage thrombus which has resolved based on recent TEEs and today's cardiac CT. She did have a subtherapeutic INR in early March. Her son Yaya could not make it to the appointment today but will be present on Friday in the preprocedure area. I provided her with preprocedure instructions including a number to call for report time.She will be NPO after midnight on Friday. I asked her also to bring her CPAP machine with her. She knows to anticipate an at least 1 overnight hospital stay postprocedure. It is also possible that she may require loading with a class 1 C antiarrhythmic medication which may prolong her hospital stay. As previously discussed, it is possible that rhythm control alone may not be sufficient to completely relieve her dyspnea on exertion and fatigue as the symptoms are likely multifactorial including herobesity, poorly treated sleep apnea, deconditioning, diastolic dysfunction, mitral regurgitation andpossible chronotropic incompetence. We will need to reassess her pacemaker needs in the future. She has been known to have some evidence of sinus node dysfunction based on prior ambulatory rhythm monitoring. There is a finding of clustered nodularity in the posterior basal left lower lobe of the lung on hercardiac CT measuring up to 4 mm and this will require follow-up imaging. There are no current infectious symptoms that would preclude proceeding with the procedure on Friday. All the above was discussed in detail with the patient who expressed understanding of the above and agreement with the plan. MACIST INTERN documented in this encounter Plan of Treatment Not on filedocumented as of this encounter Visit Diagnoses Diagnosis Atrial Fibrillation Other Persistent (HC C) - Primary Hypertensive Heart Disease With Heart Fa ilure (HCC) Diabetes Mellitus Type 2 Without Complic ation (HCC) documented in this encounter Additional Health Concerns Assessment Noted Time PHQ-9 Depression Total Score: 11 05/04/2013 4:05 PM PAGE Gomez documented as of this encounter Care Teams Card Folder Relationship Specialty Start Date End Date Elsewhere, Pcp PCP - General Internal Medicine 07/27/18 documented as of this encounter
--- OUTSIDE RECORDS SUMMARY | 2021-12-27 05:23 | XMS_ITS | Encounter Summary ---
:1955 Author Organization [facility] Address [address] [place] [address] Care Team Providers Name Role Phone Elsewhere, Pcp Primary Care Provider Unavailable Reason for Visit Appointment Request (Routine) - Closed Specialty Diagnoses / Procedures Referred By Contact Refer red To Contact Cardiovascular Disease Porfirio Villegas M.D. [address] [place] [address] Referral ID Status Reason Start Date Expiration Date Visits Requ ested Visits Authorized [id number] Closed 01/25/2019 01/25/2020 1 1 Encounter Details Date Type Department Care Team Description 02/26/2019 Office Visit Department of Newton Villegas Cardiovascular Medicine Porfirio (HC C) (Primary Dx) in [facility] nasim Kellogg [address] [facility] [address] [place] [address] [place], [place] [phone] Social History Tobacco Use Types Packs/Day Years [...] do you attend methodist or Never 2018 jainism services? Do you belong to any clubs [...] - Inhaled Oxygen Concentration - - Weight 98.9 kg (218 lb 0.6 oz) 02/26/2019 1:12 PM ABRASIVE GRINDER Height 165.6 cm (5' 5.2) 02/26/2019 1:12 PM ABRASIVE GRINDER Body Mass Index 36.06 02/26/2019 1:12 PM ABRASIVE GRINDER documented in this encounter Progress Notes Porfirio Villegas M.D. - 02/26/2019 1:00 PM CST HISTORY OF PRESENT ILLNESS I had the pleasure of seeing Ms. Metcalf in followup in [facility]. She is accompaniedtoday by her son, Ramin, whom she identifies as her next of kin and the person whom she wishes to share her important healthcare decisions with. Ms. Metcalf does have a certain degree of cognitive dysf unction, and today's appointment is meant to involve her son, Ramin, in the discussions regarding next steps in her atrial fibrillation care. She is a very pleasant 63-year-old woman who has a history of paroxysmal atrial fibrillation, now persistent, history of resolved tachycardia-induced cardiomyopathy, mitral regurgitation, history of resolved left atrial appendage thrombus, left atrial enlargement, hypertension, hyperlipidemia, type 2 d iabetes, obesity, and CHAPITO, whom we last saw in this clinic in the end of December. She remains quite symptomatic with significant exertional limitation and dyspnea with even low-level exertion. She reports that she feels palpitations almost on a daily basis. She is fatigued. She denies orthopnea, PND, lower extremity edema, syncope, or presyncope. Current Outpatient Medications: ??? albuterol (PROAIR HFA) 90 mcg/actuation inhaler, Inhale 1-2 puffs every 4 (four) hours as neededfor shortness of breath., Disp: 1 Inhaler, Rfl: 11 ??? alum-mag hydroxide-simeth (MAALOX) 200-200-20 mg/5 mL suspension, Take 15-30 mL by mouth every 6(six) hours as needed for indigestion., Disp: , Rfl: ??? aspirin [address] tablet, Take 81 mg by mouth daily., Disp: , Rfl: ??? clotrimazole-betamethasone (LOTRISONE) 1-0.05 [...] (Patient taking differently:Take 17 g by mouth daily. Dissolve each 17 g dose in 240 mLs (8 ounces) of beverage. ), Disp: 60 packet, Rfl: 11 ??? rizatriptan (MAXALT) 5 mg tablet, Take 1 tablet (5 mg total) by mouth as needed for migraine., Disp: 9 tablet, Rfl: 0 ??? SENNOSIDES ORAL, Take 1 tablet by mouth 2 (two) times a day. , Disp: , Rfl: ??? simvastatin (ZOCOR) 20 mg tablet, Take 1 tablet (20 mg total) by mouth at bedtime. Hyperlipidemia, Disp: , Rfl: ??? topiramate (TOPAMAX) 25 [...] Visit Summary. Friday, , Disp: , Rfl: ALLERGIES she has No Known Allergies. ROS: Review of 14 systems was negative except as noted above. PHYSICAL EXAMINATION Ht 165.6 cm Wt 98.9 kg BMI 36.06 kg/m?? Head and neck: Normal Lungs: Clear to auscultation bilaterally. CV: Unable to assess JVP due to body habitus. Irregularly irregular, normal S1 S2; no murmurs appreciated. Abdomen: Obese, soft, non-tender. Extremities: No edema. Well perfused. TESTING ECG today, February 26, 1019, shows atrial fibrillation with average ventricular rate 88 beats per minute. There is ST- and T-wave abnormality. Most recent transesophageal echocardiogram from January 19, 2019, showing no left atrial appendage thrombus, but left atrial appendage is dilated and hypokinetic with dense spontaneous echo contrast. 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 Estimated LVEF 55%. The linear echodensity within the appendage was reviewed in detail and in comparison to prior TEEs it appears unchanged. Most recent Holter monitor from October 20, 2018, shows sinus rhythm with rates between 40 and 73 beatsper minute, mean 58 beats per minute. There are also episodes of junctional rhythm. IMPRESSION/REPORT/PLAN #1 Atrial fibrillation, early persistent #2 Tachycardia-induced cardiomyopathy, resolved #3 Sinus node dysfunction with likely chronotropic incompetence #4 Mitral regurgitation #5 Resolved left atrial appendage thrombus #6 Left atrial enlargement #7 Hypertension #8 Hyperlipidemia #9 Type 2 diabetes #10 Medically complicated obesity #11 CHAPITO, incompletely treated #12 Diagnosis of personality disorder and history of head injury as well as depression, anxiety, andcognitive dysfunction #11 Currently living in a long-term facility under direct supervision Ms. Metcalf has what appears to be now persistent atrial fibrillation that is quite symptomatic. Wehave tried to manage her medically with rate control over several months, and now with resolution ofleft atrial appendage thrombus we are able to discuss further rhythm control approaches. I was able to discuss the options in detail today with the patient and with her son, Ramin. In terms of antiarrhythmic medications, options are generally limited. She has history of LFT elevation likely due to nonalcoholic fatty liver disease, therefore, amiodarone as a long-term approach is not very attractive. We discussed the possibility of class 1C antiarrhythmics including sotalol and dofetilide. However, these may be challenging as long-term approaches given her sinus node dysfunction and at times rather significant bradycardia. We may need to consider pacemaker implantation in the future if these approaches were to be considered. Lastly, we discussed the option of catheter ablation strategy. She has pre viously expressed a significant interest. I do think that she is a reasonable candidate given the limitations that we have with medical therapy. Both the patient and her son wish to proceed with that approach. Discussed that we may also consider loading with a class 1C antiarrhythmic immediately afterthe procedure, but this will depend on how her rates are in sinus rhythm after the ablation. We discussed the procedure in detail, and informed consent was signed in the office today both by the patient and her son. Procedural risks include but are not limited to: pain, infection, sepsis, damage to the vessels, hematoma, pseudoaneurysm, arteriovenous fistula, retroperitoneal bleed, pneumothorax, risk for urinary tract infection, perforation of the heart muscle, or tamponade, cardiac perforation, need for pericardiocentesis or emergent heart surgery, damage to the conduction system requiringa pacemaker, damage to the heart valves, pulmonary vein stenosis, phrenic nerve injury, atrioesophageal fistula, and risk of heart attack, stroke or related to any of the above. The patient was able to repeat back to me the basics of the procedure, the rationale, as well as the main complicationrisks. I discussed explicitly that it is possible that even if we achieve good rhythm control in terms of the atrial fibrillation, she may still continue to be dyspneic with exertion and fatigued as I think these symptoms are multifactorial in her case including her obesity, poorly treated sleep apnea, deconditioning, diastolic dysfunction, mitral regurgitation, as well as likely chronotropic incompetence. She expressed understanding and wishes to proceed. Again, we will have to reassess her pacemaker needs in the future. We will proceed with scheduling the ablation procedure with Dr. Yeager in the next few weeks with routine preprocedural testing including specifically MICHAEL as she does have a history of left atrial appendage thrombus. To the best of my knowledge, she has been anticoagulated appropriately with warfarin with therapeutic INRs in the last several months. Both the patient and her son expressed concern regarding her polypharmacy. I reviewed her cardiac medications and these seem appropriate at this point. She had questions regarding her psychiatric medications and I asked her to further review those with her primary care physician who is prescribing them. All the above was discussed in detail with the patient and her son. I provided educational material to both the patient and her son regarding atrial fibrillation and ablation. Multiple questions were answered to their satisfaction. They have my contact information, and I asked them to contact me in the meantime should any pertinent issues or concerns arise. Reviewed with Dr. Yeager. SIVE GRINDER documented in this encounter Plan of Treatment Not on filedocumented as of this encounter Visit Diagnoses Diagnosis Atrial Fibrillation Unspecified - Primar y documented in this encounter Additional Health Concerns Assessment Noted Time PHQ-9 Depression Total Score: 11 05/04/2013 4:05 PM CS T documented as of this encounter Care Teams Financial Operations Analyst Relationship Specialty Start Date End Date Elsewhere, Pcp PCP - General Internal Medicine 07/27/18 documented as of this encounter
--- OUTSIDE RECORDS SUMMARY | 2021-12-27 05:23 | XMS_ITS | Encounter Summary ---
:1955 Author Organization [facility] Address [address] [place] [address] Care Team Providers Name Role Phone Elsewhere, Pcp Primary Care Provider Unavailable Reason for Referral MRI/CAT/PET Scan (Routine) - Closed Specialty Diagnoses / Procedures Referred By Contact Refer red To Contact Radiology Diagnoses Atrial Fibrillation Unspecified [facility] Procedures CT Cardiac Angiogram Pulmonary Veins with IV M.D. [address] [place], [place] [address] Referral ID Status Reason Start Date Expiration Date Visits Requ ested Visits Authorized [id number] Closed 03/04/2019 03/03/2020 1 1 BENDING MACHINE OPERATOR Reason for Visit MRI/CAT/PET Scan (Routine) - Closed Specialty Diagnoses / Procedures Referred By Contact Refer red To Contact Radiology Diagnoses Atrial Fibrillation Unspecified [facility] Procedures CT Cardiac Angiogram Pulmonary Veins with IV M.D. [address] [place] [address] Referral ID Status Reason Start Date Expiration Date Visits Requ ested Visits Authorized [id number] Closed 03/04/2019 03/03/2020 1 1 Encounter Details Date Type Department Care Team Description 04/16/2019 Hospital Encounter Department of Siontis, Atrial F ibrillation Radiology, Garett Monroy, ([facility]) Building, in M.D. Transfer, [place] [address] [place] [id number] [phone] Social History Tobacco Use Types Packs/Day Years [...] daily. INR goal 2.5-3.5(atrial thrombus). Take 5mg Sun,,Fri,Fri,Sat warfarin (COUMADIN) 6 Take 6 mg by mouth. 0 04/21/2019 mg tablet Take as directed per After Visit Summary. Friday, warfarin (COUMADIN) 6 Take 1 tablet (6 mg 0 04/2108/19/2019 mg tablet total) by mouth daily. Take 6mg on documented as of this encounter Nursing Notes Oralia Ivey, R.N. - 04/16/2019 9:45 AM CST A review of the patients current medications was completed under the context of radiology care priorto contrast/medication administration. BENDING MACHINE OPERATOR documented in this encounter Plan of Treatment Scheduled Orders Name Type Priority Associated Diagnoses Order S chedule Creatinine, POCT Point of Care STAT STAT for 1 Occurrences Testing-Docked starting 03/25 Device until 0 documented as of this encounter Procedures Procedure Name Priority Date/Time Associated Comments Diagnosis CT CARDIAC RAD - Routine 04/16/2019 10:12 Atrial Fibrillation Res ults for this ANGIOGRAM (most inpatients AM HOOP BENDING MACHINE OPERATOR (HCC) procedure a re in PULMONARY VEINS and all the results WITH IV CONTRAST outpatients) section. CREATININE, POCT, Routine 04/16/2019 9:39 Results for this B AM HOOP BENDING MACHINE OPERATOR procedure are i n the results section. CREATININE, POCT, Routine 04/16/2019 9:39 Results for this B AM HOOP BENDING MACHINE OPERATOR procedure are i n the results section. documented in this encounter Results CT Cardiac Angiogram Pulmonary Veins with IV (04/16/2019 10:12 AM HOOP BENDING MACHINE OPERATOR) Anatomical Region Laterality Modality Cardiac, Cardiovascular RST LOS, N/A Compute d Tomography, Computed Thoracic ARZ LOS, Cardiovascular FLA Godwin ography LOS Specimen (Source) Anatomical Collection Method Collection Time Re ceived Time Location / / Volume Laterality 04/16/2019 10:05 AM HOOP BENDING MACHINE OPERATOR Impressions 04/16/2019 10:21 AM HOOP BENDING MACHINE OPERATOR 1. Normal variant pulmonary vein anatomy with [...] infectious or inflammatory. Narrative 04/16/2019 10:21 AM HOOP BENDING MACHINE OPERATOR EXAM: ??CT CARDIAC ANGIOGRAM PULMONARY VEINS WITH IV CONTRAST COMPARISON: ??[facility] CT chest witho ut intravenous contrast 02/05/2012. [...] T8, unchanged. C holecystectomy clips evident on patient care provider topogram. Procedure Note Nikunj Bolton M.D. - 04/16/2019Formattin g of this note might be different from the original. EXAM: CT CARDIAC ANGIOGRAM PULMONARY VEI NS WITH IV CONTRAST COMPARISON: [facility] CT chest without intravenous contrast 02/05/2012. FINDINGS: [...] T8, unchanged. C holecystectomy clips evident on patient care provider topogram. IMPRESSION: 1. Normal variant pulmonary vein [...] infectious or inflammatory. Porfirio TEE CT PROCEDURES Creatinine, POCT (04/16/2019 9:39 AM HOOP BENDING MACHINE OPERATOR) P athologist Signature Creatinine, 0.8 0.6 - 1.0 04/16/2019 PCDT POCT, B mg/dL 12:52 PM HOOP BENDING MACHINE OPERATOR Comment: ----ADDITIONAL INFORMATION---- Performed at the Point of Care Specimen Anatomical Collection Method Collection Time Receive d Time (Source) Location / / Volume Laterality Blood 04/16/2019 9:39 AM 0 HOOP BENDING MACHINE OPERATOR 12:53 PM HOOP BENDING MACHINE OPERATOR Unknown Provider LAB POCT ORDERABLES - DEVICE Performing Organization Address [facility]/ZIP Code Phon e Number POC BRAWLEY PERFORMING [address] [place] [address] LABS PCDT [facility] [address] [place] P[facility] [address] Creatinine, POCT (04/16/2019 9:39 AM HOOP BENDING MACHINE OPERATOR) P athologist Signature eGFR-Black/Afri >90 >=60 04/16/2019 PCMO can Turkmen, mL/min/BSA 12:53 PM HOOP BENDING MACHINE OPERATOR POCT Comment: ----ADDITIONAL INFORMATION---- Estimated GFR calculated using the 2009 CKD_EPI creatinine equation. eGFR Non-Black/, 79 >=60 mL/min/BSA 04/16/2019 12:53 PM HOOP BENDING MACHINE OPERATOR PCMO POCT Comment: ----ADDITIONAL INFORMATION---- Estimated GFR calculated using the 2009 CKD_EPI creatinine equation. Specimen Anatomical Collection Method Collection Time Receive d Time (Source) Location / / Volume Laterality Blood 04/16/2019 9:39 AM 0 HOOP BENDING MACHINE OPERATOR 12:53 PM HOOP BENDING MACHINE OPERATOR Unknown Provider LAB POCT ORDERABLES - DEVICE Performing Organization Address [facility] Phon e Number POC RST [facility] [address] [place] [address] OUTPATIENT [facility] [place] [address] [place] [facility] [address] documented in this encounter Visit Diagnoses Diagnosis Atrial Fibrillation Unspecified documented in this encounter Administered Medications Inactive Administered Medications - up to 3 most recent administrations Medication Order MAR Action Action Date Dose Rate Site iohexol 350 mg iodine/mL solution Given 04/16/2019 9:51 AM HOOP BENDING MACHINE OPERATOR 1 40 mL 1-200 mL (OMNIPAQUE) 1-200 mL, intravenous, Once in imaging, contrast, Starting on Fri04/16/19 at 0920, For 1 dose, Imaging Protocol Orders, Dose per Radiant Medication Guidelines sodium chloride (PF) 0.9 % injection 1-1 00 mL Given 04/16/2019 9:51 AM HOOP BENDING MACHINE OPERATOR 10 mL 1-100 mL, intravenous, Once, On Fri04/16/19 at 0930, For 1 dose, Imaging Protocol Orders documented in this encounter Additional Health Concerns Assessment Noted Time PHQ-9 Depression Total Score: 05/04/2013 4:05 PM CS T documented as of this encounter Care Teams Reject Opener Relationship Specialty Start Date End Date Elsewhere, Pcp PCP - General Internal Medicine 07/27/18 documented as of this encounter
--- OUTSIDE RECORDS SUMMARY | 2021-12-27 05:23 | XMS_ITS | Encounter Summary ---
:1955 Author Organization [facility] Address [address] [place] [address] Care Team Providers Name Role Phone Elsewhere, Pcp Primary Care Provider Unavailable Encounter Details Date Type Department Care Team Description 04/19/2019 Surgery Division of Cardiovascular Carole Yeager, ABLATION - PVI Diseases in [facility] [address] [facility] [address] [place] [phone] [phone] (Wo rk) Social History Tobacco Use Types [...] or relatives? How often do you attend sabianist or Never 2018 confucianist services? Do you belong to any clubs or No 02/26/2019 organizations such as sabianist groups, unions, fraternal or athletic groups, or [...] Sign Reading Time Taken Comments Blood Pressure 147/103 04/19/2019 8:35 AM SAND DRIER Pulse - - Temperature - - Respiratory Rate 16 04/19/2019 8:35 AM SAND DRIER Oxygen Saturation 94% 04/19/2019 8:35 AM SAND DRIER Inhaled Oxygen Concentration - - Weight 98.4 kg (216 lb 14.9 oz) 04/19/2019 8:35 AM SAND DRIER Height 165.6 cm (5' 5.2) 04/19/2019 8:35 AM SAND DRIER Body Mass Index 35.85 04/19/2019 8:35 AM SAND DRIER documented in this encounter Discharge Summaries Tucker Rutherford P.A.-C. - 04/21/2019 10:04 AM CST Images from the original note were not included. DISCHARGE SUMMARY BRIEF OVERVIEW Discharge Provider: Marla Yeager M.B.B.S. Primary Care Providers: Elsewhere, Pcp (General) [address] [place] [address] Primary Care Provider Phone Number: None Primary Care Provider Fax Number: None Other Providers: Patient Care Team: Elsewhere, Pcp as PCP - General (Internal Medicine) Kandace Mckeon D.O. as External Primary Care Physician (Family Medicine) Oralia Ricks, NO, C.N.PEdilma as Nurse Practitioner (Cardiovascular Diseases) Porfirio Villegas [...] daily. INR goal 2.5-3.5(atrial thrombus). Take 5mg Fri,,Fri,Fri,Sat * warfarin 6 mg tablet Commonly known as: COUMADIN Take 1 tablet (6 mg total) by mouth daily. Take 6mg on Fri/ * There are duplicate medications prescribed to the patient DIAGNOSTICS Results from last 7 days Lab Units 04/21/19 0615 04/20/19 0634 04/19/19 14104/19/19 1046 WBC x10(9)/L 11.7* [...] last 7 days Lab Units 04/21/19 0615 04/19/19 1612 04/19/19 1410 04/19/19 1046 SODIUM [...] rhythm has replaced Atrial fibrillation Reviewed by Iris Sepulveda [facility] Iris Metcalf was discharged from [facility] following an ablation performed by Dr. [...] will occur in approximately 3 months at [facility] in Heart Rhythm Services. Testing at that time will include a 24 hr Holter monitor, ECG, echocardiogram, and cardiac Ct. Patient was also instructed to follow up with Primary Care locally in the next 7-10 days for post hospital follow up. Discharge instructions were provided to the patient and caregiver(s). Juan J Rutherford P.A.-C. DRIER documented in this encounter Discharge Instructions Discharge InstructionsHiTucker fish P.A.-C. - 04/21/2019 11:05 AM SAND DRIER Hospital Problems as of 04/21/2019 1. * [...] 4:00 p.m., contact the Electrophysiology Service at [phone]. For questions occurring after business hours, on weekends, nights, or holidays call [phone] and ask for Electrophysiology Frame Pulley Mortising Machine Operator. General Follow-Up: You should follow up locally with your primary care provider in approximately 2 weeks for post hospitalization follow-up. Take a copy of the dismissal summary from [facility] to your provider. [facility] Follow-Up: A follow-up appointment will be scheduled for you in 3 months in the Heart Rhythm Center or Cardiovascular Exam Room. You will be contacted by [facility] to set up the follow up. Tests will include the following: electrocardiogram, 24-hour Holter monitor, transthoracic echocardiogram, and CT scan of heart. Our appointment coordinators will be contacting you. If you have not been notified about your appointment, please contact the electrophysiology change coordinator at . Anticoagulation: Anticoagulation with Coumadin [...] avoid/skip your follow-up appointments, they are important! DRIER AttachmentsThe following attachments cannot be sent through Care Everywhere. Acetaminophen (By mouth) (Icelandic)Flecainide (By mouth) (Icelandic)Omeprazole (By mouth) (Icelandic)documented in this encounter Medications at Time of [...] total) by mouth daily. Take 6mg on Mon/ documented as of this encounter Progress Notes [...] daily except 6mg on Friday and Lissette Breen, PharmJohn., R.Ph. Contact Pager [phone] with any questions about this note. DRIER Tucker Rutherford P.A.-C. - 04/20/2019 11:26 AM [...] have been answered. Juan J Rutherford P.A.-C. DRIER Porfirio Villegas M.D. - 04/20/2019 8:20 AM CST Heart [...] Clinical Cardiac Electrophysiology Fellow 04/20/2019 8:21 AM SAND DRIER DRIER Aria Houser APRN C.N.PEdilma, M.S.N. - 04/19/2019 4:23 PM CST SUBJECTIVE [...] the hospital for monitoring while on flecainide. DRIER Jayda Whitehead, Pharm.D., R.Ph. - 04/19/2019 4:01 [...] and Jayda Haddad Pharm.D., R.Ph. Contact Pager [phone] with any questions about this note. DRIER documented in this encounter Procedure Notes Porfirio [...] BLOOD LOSS Estimated Blood Loss: 1-75 ml DRIER documented in this encounter Consult Notes Flores Romeo R.N. 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) Who was present during the interview?: Patient Gravity Prospector Services Used: No Patient Information Primary Caregiver: Other (Comment)(staff at facility) Primary Nurse Name/Number: Bernie Diet/Texture: By mouth Legal Information Legal Decision Maker: Self Advance Directives: Power of Candy Separator [place] for health care, Power of Candy Separator [place] for finance Advance Directives Status: Not Activated Power of Candy Separator [place] for Health Care Agent Name: Ramin Metcalf Power of Candy Separator [place] for Health Agent Contact Info: [phone] Power of Candy Separator [place] for Finance Agent Name: Ramin Metcalf Power of Candy Separator [place] for Finance Agent Contact Info: [phone] Caregiver Information Caregiver Name: [facility] Caregiver Relationship: paid staff Caregiver Caregiver Address: [address] [place] [address] Services Requested Discharge Planning to Facility OBJECTIVE [...] Communication: Can write, Talks, Understands speaking, Understands Icelandic Environmental Supports Home Environment: Alf Care Facility Name: [facility] Anticipated Modifications to the Patient's Home: None Anticipated Needs/Assistive Devices ADL Anticipated Needs: Bathing, Meal Preparation, Medication Set- up/Administration, Housekeeping, Shopping, Transportation Use (drive car, use taxi/bus) Equipment Anticipated Needs: None Transportation Needs: Support from family, Other (comment) Transportation Needs Other: Care Management arranged for discharge Finance/Insurance Primary insurance: MEDICARE A AND B Secondary insurance: ARE Does the Patient have any Financial Concerns?: No Income Source: Disability (Comment), Social security(SSI) Income/Expense Information: Income meets expenses Discharge Planning Barriers To Discharge: None Strengths: Premorbid level of function, Support of immediate family Type of Residence: Other (Comment) Type of Residence Other: [facility] Care Facility Name: [facility] Support Systems: Children Assistance Recommended after Discharge: 24 hour supervision Home Care Services: No Anticipated Discharge Destination: [facility] Does the patient need discharge transport arranged?: Yes Has discharge transport been arranged?: Yes What day is the transport expected?: 04/21/19 What time is the transport expected?: 1130 Discharge Provided By: Chasity [place]: [phone] ASSESSMENT / PLAN ??Assessment: Met with the patient to discuss her prior level of care and home going needs. I reviewed my role of Medicare Insurance Specialist. Patient reviewed her current hospitalization and appears to have understanding, insightand competence of her needs. Patient reviewed her home environment and support system; reviewing that her primary care team assistant - facility staff will be able to provide care to patient post discharge. Patient reports that she feels safe and supported to return [facility]. ?? Patient stated that she has two sons that are her support system. Patient hopes to transition to an assisted living center. Plan: Patient appears to have understanding, insight and competence into patient needs and is appropriately planning for discharge at this time. I recommended the following: none at this time 1. Patient plans to return to [facility] once medically stable for DC 2. Resources given:None 3. CM will continue to follow for any needs that arise. 4. Transportation home will be provided by [place] [phone]. 5. Reconnections needed [facility]. Patient to return to: Destination - Selection Complete Service Provider Request Status Selected Services Address Phone Number Fax Number [facility] Selected Transitional Care Unit [address] [facility] [address] [phone] Contact: Intake Patient has a MA bedhold. Facility prefers patient return by 1300. Transportation to be provided by [place] at 1130. Please contact Case Management if [...] arise. Signed by: Flores Romeo R.N. 04/21/2019 DRIER documented in this encounter Nursing Notes Talya Duffy R.N. - 04/21/2019 10:55 AM CST Pt d/c to [facility]. Facility AVS, discharge summary and MAR report printed, discussed andhanded to pt to relay to SNF. Nurse to nurse report done. Education complete. Teach-back acquired. All questions answered. Transport arranged. Escort requested. DRIER Mary Cortés R.REdilmaTEdilma, L.R.T. - 04/20/2019 12:42 AM CST Patient is a 64 y.o. female admitted on 04/19/2019 Alert Information: Plan of Care: Patient refused PAP therapy tonight. RT will continue to offer assistance. Principal Problem Atrial Fibrillation Paroxysmal (HCC) Oxygen Therapy $Delivery Method: Room air Arterial Line 04/19/19 Right Radial (Active) Placement Date/Time: 04/19/19 (c) 4832 Procedural Pause Completed: Yes Hand Hygiene Performed Prior to Insertion: Yes Site Prep: Chlorhexidine (Preferred) Sterile Barriers Used : Cap;Gloves;Gown;Large drape;Mask (Clinician);Mask (All others in ro... DRIER Naren Michaels R.N. - 04/19/2019 9:35 PM CST Shift Goals: Clinical Goals for the Shift: pt remain safe Identify possible barriers to meeting goals/advancing plan of care: pt up with assist and walker End of Shift Summary: met DRIER Naren Peng R.R.T., L.R.T. - 04/19/2019 5:29 PM CST Assist with CPAP DRIER Robbie Emerson R.N. - 04/19/2019 8:38 AM CST Patient was admitted for ablation/ electrophysiology procedure. Reviewed HPI, preliminary testing and confirmed medications taken this morning. The last dose of Warfarin taken was 04/19/2019. Pain management strategies post-procedure were discussed. All questions were answered. Patient would like family member Ramin updated with procedural updates. The phone number to reach this family member is [phone]. DRIER documented in this encounter Plan of Treatment Scheduled Referrals Name Type Priority Associated Diagnoses Order [facility] Cardiovascular Disease Outpatient Routine Flutter A trial ([facility]) Expected: - Heart rhythm consult Referral Atrial Fibrillatio n 07/21/2019 (clinic) Paroxysmal ([facility]) (Approximat e), Expires: 04/21/2022 documented as of this encounter Procedures Procedure Name Priority Date/Time Associated Comments Diagnosis ECG Routine 04/21/2019 Results for 10:47 AM SAND DRIER this procedure are in the results section. PROTHROMBIN TIME (PT), Routine 04/21/2019 6:15 Re sults for P AM SAND DRIER this procedure are in the results section. CBC WITH DIFFERENTIAL, Routine 04/21/2019 6:15 Re sults for B AM SAND DRIER this procedure are in the results section. BUN (BLOOD UREA Routine 04/21/2019 6:15 Results f or NITROGEN), S/P AM SAND DRIER this procedur e are in the results section. POTASSIUM, S/P Routine 04/21/2019 6:15 Results fo r AM SAND DRIER this procedure are in the results section. MAGNESIUM, S Routine 04/21/2019 6:15 Results for AM SAND DRIER this procedure are in the results section. CREATININE WITH EGFR, Routine 04/21/2019 6:15 Res ults for S/P AM SAND DRIER this procedure are in the results section. ECG Routine 04/20/2019 Results for 10:44 PM SAND DRIER this procedure are in the results section. DX CHEST AP OR PA AND RAD - Timed 04/20/2019 8:18 Res ults for LATERAL 2 VIEWS (for specific AM SAND DRIER this proced ure dates/times) are in the results section. ECG Routine 04/20/2019 6:42 Results for AM SAND DRIER this procedure are in the results section. PROTHROMBIN TIME (PT), Routine 04/20/2019 6:34 Re sults for P AM SAND DRIER this procedure are in the results section. CBC WITH DIFFERENTIAL, Routine 04/20/2019 6:34 Re sults for B AM SAND DRIER this procedure are in the results section. BUN (BLOOD UREA Routine 04/20/2019 6:34 Results f or NITROGEN), S/P AM SAND DRIER this procedur e are in the results section. POTASSIUM, S/P Routine 04/20/2019 6:34 Results fo r AM SAND DRIER this procedure are in the results section. MAGNESIUM, S Routine 04/20/2019 6:34 Results for AM SAND DRIER this procedure are in the results section. CREATININE WITH EGFR, Routine 04/20/2019 6:34 Res ults for S/P AM SAND DRIER this procedure are in the results section. GLUCOSE POCT, B Routine 04/19/2019 4:12 Results f or PM SAND DRIER this procedure are in the results section. POTASSIUM, S/P STAT 04/19/2019 3:42 Results fo r PM SAND DRIER this procedure are in the results section. MAGNESIUM, S STAT 04/19/2019 3:42 Results for PM SAND DRIER this procedure are in the results section. PROTHROMBIN TIME (PT), STAT 04/19/2019 2:53 Re sults for P PM SAND DRIER this procedure are in the results section. ABLATION - ATRIAL Routine 04/19/2019 2:26 Atrial Results for FLUTTER - RIGHT PM SAND DRIER Fibrillation (HCC) this p rocedure are in the results section. ABLATION - WACA Routine 04/19/2019 2:26 Atrial Results f or PM SAND DRIER Fibrillation (HCC) this proc edure are in the results section. HEART RHYTHM PROCEDURE Routine 04/19/2019 2:26 Atrial Re sults for PM SAND DRIER Fibrillation (HCC) this proc edure are in the results section. HEART RHYTHM PROCEDURE Routine 04/19/2019 2:26 Atrial Re sults for PM SAND DRIER Fibrillation (HCC) this proc edure are in the results section. HEART RHYTHM PROCEDURE Routine 04/19/2019 2:26 Atrial Re sults for PM SAND DRIER Fibrillation (HCC) this proc edure are in the results section. ABLATION PVI Routine 04/19/2019 2:26 Atrial Results for PM SAND DRIER Fibrillation (HCC) this proc edure are in the results section. ABG AND LYTES EG6+, Routine 04/19/2019 2:10 Resul ts for POCT, B PM SAND DRIER this procedure are in the results section. ACT, POCT, B Routine 04/19/2019 2:03 Results for PM SAND DRIER this procedure are in the results section. GLUCOSE POCT, B Routine 04/19/2019 2:02 Results f or PM SAND DRIER this procedure are in the results section. ACT, POCT, B Routine 04/19/2019 1:19 Results for PM SAND DRIER this procedure are in the results section. ABG AND LYTES EG6+, Routine 04/19/2019 Results for POCT, B 12:58 PM SAND DRIER this procedure are in the results section. ACT, POCT, B Routine 04/19/2019 Results for 12:48 PM SAND DRIER this procedure are in the results section. GLUCOSE POCT, B Routine 04/19/2019 Results for 12:47 PM SAND DRIER this procedure are in the results section. ACT, POCT, B Routine 04/19/2019 Results for 12:19 PM SAND DRIER this procedure are in the results section. PROTHROMBIN TIME (PT), STAT 04/19/2019 Resul ts for P 12:16 PM SAND DRIER this procedure are in the results section. ACT, POCT, B Routine 04/19/2019 Results for 11:55 AM SAND DRIER this procedure are in the results section. ACT, POCT, B Routine 04/19/2019 Results for 11:27 AM SAND DRIER this procedure are in the results section. ACT, POCT, B Routine 04/19/2019 Results for 11:05 AM SAND DRIER this procedure are in the results section. PROTHROMBIN TIME (PT), STAT 04/19/2019 Resul ts for P 10:46 AM SAND DRIER this procedure are in the results section. CBC WITH DIFFERENTIAL, STAT 04/19/2019 Resul ts for B 10:46 AM SAND DRIER this procedure are in the results section. BASIC METABOLIC PANEL, STAT 04/19/2019 Resul ts for S/P 10:46 AM SAND DRIER this procedure are in the results section. TYPE AND SCREEN STAT 04/19/2019 Results for 10:45 AM SAND DRIER this procedure are in the results section. GLUCOSE POCT, B Routine 04/19/2019 Results for 10:44 AM SAND DRIER this procedure are in the results section. ACT, POCT, B Routine 04/19/2019 Results for 10:41 AM SAND DRIER this procedure are in the results section. ECHO - INTRAPROCEDURAL Routine 04/19/2019 8:52 Re sults for IMAGES ONLY AM SAND DRIER this procedure are in the results section. INR, POCT, B Routine 04/19/2019 8:37 Results for AM SAND DRIER this procedure are in the results section. GLUCOSE POCT, B Routine 04/19/2019 8:37 Results f or AM SAND DRIER this procedure are in the results section. [...] complete report, see the Order-L evel Documents. Narrative 08/19/2019 1:52 PM CDT For the complete report, see the Order-[employer] Documents. Final Impressions 1. Echocardiogram performed per [...] 08/19/2019 For the complete report, see the Gen[employer] Documents. Final Impressions 1. Echocardiogram performed per [...] ECHO PROCEDURES HOLTER MONITOR - IN CLINIC EXHIBIT ELECTRICIAN (08/18/2019 10:48 AM CDT) [facility] gist Method Time Signature SVE Max Per [id number] HOLTER Hour Time SENTINEL SVE Max Per 2 count HOLTER Hour SENTINEL VE Total Beats 1 count HOLTER SENTINEL VE Percent 0 percent HOLTER Beats SENTINEL Mean Heart 66 bpm HOLTER Rate SENTINEL VT Runs 0 count HOLTER SENTINEL SVE Total 5 count HOLTER Beats SENTINEL Max Heart Rate 83 bpm HOLTER SENTINEL AF Count 0 count HOLTER SENTINEL Min Heart Rate [id number] HOLTER Time SENTINEL Recording Date [id number] HOLTER SENTINEL Tachycardia 0 count HOLTER Runs SENTINEL Holter Pauses 0 count HOLTER SENTINEL SVT Runs 0 count HOLTER SENTINEL Bradycardia 0 count HOLTER Runs SENTINEL Analysis Date 20,200,529 HOLTER SENTINEL Min Heart Rate 54 bpm HOLTER SENTINEL VE Max Per [id number] HOLTER Hour Time SENTINEL SVE Percent 0 percent HOLTER Beats SENTINEL VE Max Per 1 count HOLTER Hour SENTINEL Max Heart Rate [id number] HOLTER Time SENTINEL Specimen (Source) Anatomical Collection Method Collection Time Re ceived Time Location / / Volume Laterality 08/18/2019 10:49 AM CDT Narrative This result has an attachment that is no t available. Tucker Rutherford P.A.-C. CV CARDIAC SERVICES PROCEDUR ES Performing Organization Address [facility] Phon e Number HOLTER SENTINEL HOLTER SENTINEL NA ECG 12 Lead (08/18/2019 10:23 AM CDT) [facility] gist Method Time Signature Ventricular 66 BPM MUSE Rate ECG/Min MA Interval 202 ms MUSE QRSD Interval 118 ms MUSE QT Interval 480 ms MUSE QTC Interval 503 ms MUSE P [place] 73 degrees MUSE R [place] 94 degrees MUSE T Wave [place] 47 degrees MUSE CODED DIAGNOSIS MUSE Semi-Urgent [...] Rutherford P.A.-C. ECG ORDERABLES Performing Organization Address [facility] Phon e Number MUSE MUSE NA CT [...] thoracic spine. Cholecystectomy clips se en on in home caregiver images. GUIDELINES FOR FOLLOW-UP of newly detect [...] thoracic spine. Cholecystectomy clips se en on in home caregiver images. GUIDELINES FOR FOLLOW-UP of newly detect [...] PROCEDURES ECG 12 Lead (04/21/2019 10:47 AM SAND DRIER) P athologist Signature Ventricular Rate 73 BPM MUSE ECG/Min MA Interval 204 ms MUSE QRSD Interval 110 ms MUSE QT Interval 414 ms MUSE QTC Interval 456 ms MUSE P [place] 69 degrees MUSE R [place] 104 degrees MUSE T Wave [place] 27 degrees MUSE Specimen Anatomical Collection Method Collection Time Receive d Time (Source) Location / / Volume Laterality 04/21/2019 10:47 04/21/2019 AM SAND DRIER 10:55 AM SAND DRIER Impressions MUSE - 04/21/2019 10:55 AM SAND DRIER Normal sinus rhythm with 1st degree A-V [...] MUSE MUSE NA Magnesium (04/21/2019 6:15 AM SAND DRIER) P athologist Signature Magnesium, S 2.0 1.7 - 2.3 04/21/2019 DTL mg/dL 7:39 AM SAND DRIER Specimen Anatomical Collection Method Collection Time Receive d Time (Source) Location / / Volume Laterality Blood (Blood, 04/21/2019 6:15 AM 04/21/19 20 6:39 Venous) SAND DRIER AM SAND DRIER Tucker Rutherford P.A.-C. LAB BLOOD ADD-ON Performing Organization Address City/State/ZIP Code Phon e Number [facility] - [address] [place], [place] [address] [facility] [place] [place] [address] [facility] [address] (ABNORMAL) Prothrombin Time (PT) (04/21/2019 6:15 AM SAND DRIER) Patholo gist Method Time Signature Prothrombin 28.6 (H) 9.4 - 12.5 04/21/2019 DTL Time, P sec 6:54 AM SAND DRIER INR 2.6 0.9 - 1.1 04/21/2019 DTL 6:54 AM SAND DRIER Comment: ----ADDITIONAL INFORMATION---- Standard intensity warfarin therapeutic range: 2.0 to 3.0 ?? High intensity warfarin therapeutic rang e: 2.5 to 3.5 Specimen Anatomical Collection Method Collection Time Receive d Time (Source) Location / / Volume Laterality Blood (Blood, 04/21/2019 6:15 AM 04/21/19 20 6:39 Venous) SAND DRIER AM SAND DRIER Aria Houser APRN, C.N.P., M.S.N. LAB BLOOD ADD-ON Performing Organization Address City/State/ZIP Code Phon e Number [facility] - [address] [place], [place] [address] [facility] [place] [address] [facility] [address] (ABNORMAL) CBC with Differential, Blood (04/21/2019 6:15 AM SAND DRIER) [facility] Method Time Signature Hemoglobin 12.1 11.6 - 04/21/2019 DTL 15.0 g/dL 6:45 AM SAND DRIER Hematocrit 38.0 35.5 - 04/21/2019 DTL 44.9 % 6:45 AM SAND DRIER Erythrocytes 4.03 3.92 - 04/21/2019 DTL 5.13 6:45 AM SAND DRIER x10(12)/L MCV 94.3 78.2 - 04/21/2019 DTL 97.9 fL 6:45 AM SAND DRIER RBC Distrib Width 12.3 12.2 - 04/21/2019 DTL 16.1 % 6:45 AM SAND DRIER Platelet Count 296 157 - 371 04/21/2019 DTL x10(9)/L 6:45 AM SAND DRIER Leukocytes 11.7 (H) 3.4 - 9.6 04/21/2019 DTL x10(9)/L 6:45 AM SAND DRIER Neutrophils 8.57 (H) 1.56 - 04/21/2019 DTL 6.45 6:45 AM SAND DRIER x10(9)/L Lymphocytes 2.03 0.95 - 04/21/2019 DTL 3.07 6:45 AM SAND DRIER x10(9)/L Monocytes 0.91 (H) 0.26 - 04/21/2019 DTL 0.81 6:45 AM SAND DRIER x10(9)/L Eosinophils 0.14 0.03 - 04/21/2019 DTL 0.48 6:45 AM SAND DRIER x10(9)/L Basophils 0.08 0.01 - 04/21/2019 DTL 0.08 6:45 AM SAND DRIER x10(9)/L Specimen Anatomical Collection Method Collection Time Receive d Time (Source) Location / / Volume Laterality Blood (Blood, 04/21/2019 6:15 AM 04/21/19 20 6:40 Venous) SAND DRIER AM SAND DRIER Marla Pham LAB BLOOD ADD-ON Performing Organization Address City/State/ZIP Code Phon e Number [facility] - [address] [place], [place] [address] [facility] [place] [place] [address] [facility] Creatinine with Estimated GFR (04/21/2019 6:15 AM SAND DRIER) athologist Signature Creatinine 0.85 0.59 - 04/21/2019 DTL 1.04 mg/dL 7:39 AM SAND DRIER eGFR-Non 74 >=60 04/21/2019 DTL Black/ mL/min/BSA 7:39 AM SAND DRIER [place]i Comment: ----ADDITIONAL INFORMATION---- Estimated GFR calculated using the 2009 CKD_EPI creatinine equation. eGFR-Black/ 85 >=60 mL/min/BSA 2019 7:39 AM SAND DRIER DTL Comment: ----ADDITIONAL INFORMATION---- Estimated GFR calculated using the 2009 CKD_EPI creatinine equation. Specimen Anatomical Collection Method Collection Time Receive d Time (Source) Location / / Volume Laterality Blood (Blood, 04/21/2019 6:15 AM 04/21/19 20 6:39 Venous) SAND DRIER AM SAND DRIER Marla RendonSEdilma LAB BLOOD ADD-ON Performing Organization Address City/State/ZIP Code Phon e Number [facility] - [address] [place], [place] [address] [facility] [place] [address] [address] BUN (Blood Urea Nitrogen) (04/21/2019 6:15 AM SAND DRIER) athologist Signature BUN (Blood Urea 13 6 - 21 04/21/2019 DTL Nitrogen), S mg/dL 7:39 AM SAND DRIER Specimen Anatomical Collection Method Collection Time Receive d Time (Source) Location / / Volume Laterality Blood (Blood, 04/21/2019 6:15 AM 04/21/19 20 6:39 Venous) SAND DRIER AM SAND DRIER Marla RendonSEdilma LAB BLOOD ADD-ON Performing Organization Address City/State/ZIP Code Phon e Number [facility] - [address] [address] Laboratories[address] Potassium (04/21/2019 6:15 AM SAND DRIER) athologist Signature Potassium, S 5.0 3.6 - 5.2 04/21/2019 DT mmol/L 7:39 AM SAND DRIER Specimen Anatomical Collection Method Collection Time Receive d Time (Source) Location / / Volume Laterality Blood (Blood, 04/21/2019 6:15 AM 04/21/19 20 6:39 Venous) SAND DRIER AM SAND DRIER Marla Pham LAB BLOOD ADD-ON Performing Organization Address City/State/ZIP Code Phon e Number [facility] - [id number] [place] [address] ECG 12 Lead (04/20/2019 10:44 PM SAND DRIER) athologist Signature Ventricular Rate 82 BPM MUSE ECG/Min MA Interval 198 ms MUSE QRSD Interval 106 ms MUSE QT Interval 374 ms MUSE QTC Interval 436 ms MUSE P [place] 67 degrees MUSE R [place] 89 degrees MUSE T Wave [place] -4 degrees MUSE Specimen Anatomical Collection Method Collection Time Receive d Time (Source) Location / / Volume Laterality 04/20/2019 10:44 04/21/2019 5:08 PM SAND DRIER AM SAND DRIER Impressions MUSE - 04/21/2019 5:08 AM SAND DRIER Normal sinus rhythm ST and T wave [...] and Lateral 2 Views (04/20/2019 8:18 AM SAND DRIER) Anatomical Region Laterality Modality Chest, Thoracic RST LOS, Thoracic ARZ LOS, Thoracic N/A Digital Radiography FLA LOS Specimen (Source) Anatomical Collection Method Collection Time Re ceived Time Location / / Volume Laterality 04/20/2019 8:19 AM SAND DRIER Impressions 04/20/2019 8:37 AM SAND DRIER Since 06/29/2018, decreased lung volumes. No focal consolidation, or pneumothorax. Possible tiny left pleu ral effusion with associated atelectasis. Mild pulmonary vascular con gestion. New cardiomegaly. Aortic calcification. Surgical clips right uppe r quadrant. Narrative 04/20/2019 8:37 AM SAND DRIER EXAM: ??DX CHEST AP OR PA AND [...] Surgical clips right uppe r quadrant. Marla Pham IMG DIAGNOSTIC IMAGING PROCE [facility] ECG 12 Lead (04/20/2019 6:42 AM SAND DRIER) [facility] Method Time Signature Ventricular 75 BPM MUSE Rate ECG/Min MA Interval 186 ms MUSE QRSD Interval 102 ms MUSE QT Interval 388 ms MUSE QTC Interval 433 ms MUSE P [place] 72 degrees MUSE R [place] 97 degrees MUSE T Wave [place] -127 degrees MUSE CODED Atrial MUSE DIAGNOSIS fibrillation Specimen Anatomical Collection Method Collection Time Receive d Time (Source) Location / / Volume Laterality 04/20/2019 6:42 AM 0 8:54 SAND DRIER AM SAND DRIER Impressions MUSE - 04/20/2019 8:54 AM SAND DRIER Normal sinus rhythm Rightward axis ST and [...] fibrill ation Reviewed by SPENCER Zimmerman Marla Pham ECG ORDERABLES Performing Organization Address City/[facility]/ZIP Code Phon e Number ERIN KHAN NA (ABNORMAL) Prothrombin Time (PT) (04/20/2019 6:34 AM SAND DRIER) [facility] [employer] Method Time Signature Prothrombin 23.1 (H) 9.4 - 12.5 04/20/2019 DTL Time, P sec 7:26 AM SAND DRIER INR 2.1 0.9 - 1.1 04/20/2019 DTL 7:26 AM SAND DRIER Comment: ----ADDITIONAL INFORMATION---- Standard intensity warfarin therapeutic range: 2.0 to 3.0 ?? High intensity warfarin therapeutic rang e: 2.5 to 3.5 Specimen Anatomical Collection Method Collection Time Receive d Time (Source) Location / / Volume Laterality Blood (Blood, 04/20/2019 6:34 AM 04/20/19 20 7:04 Venous) SAND DRIER AM SAND DRIER Aria Houser APRN C.NEdilmaP., M.S.N. LAB BLOOD ADD-ON Performing Organization Address City/State/ZIP Code Phon e Number [facility] - [address] [place], [place] [address] [facility] [place] [place] [address] [facility] 200 [facility] (ABNORMAL) CBC with Differential, Blood (04/20/2019 6:34 AM SAND DRIER) [facility] [employer] Method Time Signature Hemoglobin 12.7 11.6 - 04/20/2019 DTL 15.0 g/dL 7:17 AM SAND DRIER Hematocrit 39.4 35.5 - 04/20/2019 DTL 44.9 % 7:17 AM SAND DRIER Erythrocytes 4.14 3.92 - 04/20/2019 DTL 5.13 7:17 AM SAND DRIER x10(12)/L MCV 95.2 78.2 - 04/20/2019 DTL 97.9 fL 7:17 AM SAND DRIER RBC Distrib Width 12.4 12.2 - 04/20/2019 DTL 16.1 % 7:17 AM SAND DRIER Platelet Count 362 157 - 371 04/20/2019 DTL x10(9)/L 7:17 AM SAND DRIER Leukocytes 12.0 (H) 3.4 - 9.6 04/20/2019 DTL x10(9)/L 7:17 AM SAND DRIER Neutrophils 8.06 (H) 1.56 - 04/20/2019 DTL 6.45 7:17 AM SAND DRIER x10(9)/L Lymphocytes 2.74 0.95 - 04/20/2019 DTL 3.07 7:17 AM SAND DRIER x10(9)/L Monocytes 0.93 (H) 0.26 - 04/20/2019 DTL 0.81 7:17 AM SAND DRIER x10(9)/L Eosinophils 0.17 0.03 - 04/20/2019 DTL 0.48 7:17 AM SAND DRIER x10(9)/L Basophils 0.10 (H) 0.01 - 04/20/2019 DTL 0.08 7:17 AM SAND DRIER x10(9)/L Specimen Anatomical Collection Method Collection Time Receive d Time (Source) Location / / Volume Laterality Blood (Blood, 04/20/2019 6:34 AM 04/20/19 20 7:04 Venous) SAND DRIER AM SAND DRIER Marla Pham LAB BLOOD ADD-ON Performing Organization Address City/State/ZIP Code Phon e Number [facility] - [address] [place], [place] [address] [facility] [place] [place] [address] [facility] 200 [facility] Creatinine with Estimated GFR (04/20/2019 6:34 AM SAND DRIER) P athologist Signature Creatinine 0.89 0.59 - 04/20/2019 DTL 1.04 mg/dL 8:15 AM SAND DRIER eGFR-Non 70 >=60 04/20/2019 DTL Black/ mL/min/BSA 8:15 AM SAND DRIER [place] Comment: ----ADDITIONAL INFORMATION---- Estimated GFR calculated using the 2009 CKD_EPI creatinine equation. eGFR-Black/ 80 >=60 mL/min/BSA 2019 8:15 AM SAND DRIER DTL Comment: ----ADDITIONAL INFORMATION---- Estimated GFR calculated using the 2009 CKD_EPI creatinine equation. Specimen Anatomical Collection Method Collection Time Receive d Time (Source) Location / / Volume Laterality Blood (Blood, 04/20/2019 6:34 AM 04/20/19 20 7:04 Venous) SAND DRIER AM SAND DRIER Marla RendonSEdilma LAB BLOOD ADD-ON Performing Organization Address City/State/ZIP Code Phon e Number [facility] - [address] [place], [place] [address] [facility] [place], [place] [id number] [place] [address] BUN (Blood Urea Nitrogen) (04/20/2019 6:34 AM SAND DRIER) P athologist Signature BUN (Blood Urea 13 6 - 21 04/20/2019 DTL Nitrogen), S mg/dL 8:15 AM SAND DRIER Specimen Anatomical Collection Method Collection Time Receive d Time (Source) Location / / Volume Laterality Blood (Blood, 04/20/2019 6:34 AM 04/20/19 20 7:04 Venous) SAND DRIER AM SAND DRIER Marla RendonSEdilma LAB BLOOD ADD-ON Performing Organization Address City/State/ZIP Code Phon e Number [facility] - [address] [place], [place] [address] [facility] [place] [place] [address] [facility] [address] Potassium (04/20/2019 6:34 AM SAND DRIER) P athologist Signature Potassium, S 4.7 3.6 - 5.2 04/20/2019 DTL mmol/L 8:15 AM SAND DRIER Specimen Anatomical Collection Method Collection Time Receive d Time (Source) Location / / Volume Laterality Blood (Blood, 04/20/2019 6:34 AM 04/20/19 20 7:04 Venous) SAND DRIER AM SAND DRIER Marla RendonSEdilma LAB BLOOD ADD-ON Performing Organization Address City/State/ZIP Code Phon e Number [facility] - [address] [place], [place] [address] [facility] [place] [address] [facility] [address] Magnesium (04/20/2019 6:34 AM SAND DRIER) P athologist Signature Magnesium, S 2.1 1.7 - 2.3 04/20/2019 DTL mg/dL 8:15 AM SAND DRIER Specimen Anatomical Collection Method Collection Time Receive d Time (Source) Location / / Volume Laterality Blood (Blood, 04/20/2019 6:34 AM 04/20/19 20 7:04 Venous) SAND DRIER AM SAND DRIER Marla Pham LAB BLOOD ADD-ON Performing Organization Address City/[facility]/ZIP [facility] Phon e Number [facility] - [address] [place] [address] (ABNORMAL) Glucose, POCT (04/19/2019 4:12 PM SAND DRIER) Analysis Performed At Patho logist Time Signature Glucose, POCT, 230 (H) 70 - 140 04/19/2019 PCLX B mg/dL 4:19 PM SAND DRIER Last Intake 3-4 hours 04/19/2019 PCLX 4:19 PM SAND DRIER Specimen Anatomical Collection Method Collection Time Receive d Time (Source) Location / / Volume Laterality Blood 04/19/2019 4:12 PM 0 4:19 SAND DRIER PM SAND DRIER Unknown Provider LAB POCT ORDERABLES-MANUAL Performing Organization Address City/[facility] Phon e Number POC [facility] [address] [place] [address] [place] [address] [facility] [address] (ABNORMAL) Magnesium (04/19/2019 3:42 PM SAND DRIER) P athologist Signature Magnesium, S 1.5 (L) 1.7 - 2.3 04/19/2019 DTL mg/dL 5:03 PM SAND DRIER Specimen Anatomical Collection Method Collection Time Receive d Time (Source) Location / / Volume Laterality Blood (Blood, 04/19/2019 3:42 PM 04/19/19 20 4:28 Venous) SAND DRIER PM SAND DRIER Kadeem Soto APRNNEdilmaP., M.S.N. LAB BLOOD ADD-ON Performing Organization Address City/State/ZIP Code Phon e Number [facility] - [address] [place] [address] [place] [id number] [facility] [address] Potassium (04/19/2019 3:42 PM SAND DRIER) P athologist Signature Potassium, P 3.8 3.6 - 5.2 04/19/2019 STMA mmol/L 4:01 PM SAND DRIER Specimen Anatomical Collection Method Collection Time Receive d Time (Source) Location / / Volume Laterality Blood (Blood, 04/19/2019 3:42 PM 04/19/19 3:49 Venous) SAND DRIER PM SAND DRIER Aria Houser APRN, C.N.P., M.S.N. LAB BLOOD ADD-ON Performing Organization Address [facility] Phon e Number [facility] - [address] [address] Laboratories-[place] [address] [address] [facility] (ABNORMAL) Prothrombin Time (PT) (04/19/2019 2:53 PM SAND DRIER) Patholo gist Method Time Signature Prothrombin 29.8 (H) 9.4 - 12.5 04/19/2019 STMA Time, P sec 3:14 PM SAND DRIER INR 2.7 0.9 - 1.1 04/19/2019 STMA 3:14 PM SAND DRIER Comment: ----ADDITIONAL INFORMATION---- Standard intensity warfarin therapeutic range: 2.0 to 3.0 ?? High intensity warfarin therapeutic rang e: 2.5 to 3.5 Specimen Anatomical Collection Method Collection Time Receive d Time (Source) Location / / Volume Laterality Blood (Blood, 04/19/2019 2:53 PM 04/19/19 3:02 Venous) SAND DRIER PM SAND DRIER Tucker Rutherford P.A.-C. LAB BLOOD ADD-ON Performing Organization Address City/[facility] Phon e Number [facility] - [address] [place] [address] [place] [id number] ABLATION PVI, CARTO, ULTRASOUND GUIDANCE FOR VASCULAR ACCESS, INTRACARDIAC ECHOCARDIOGRAM, ABLATION - WACA, ABLATION - ATRIAL FLUTTER - RIGHT (04/19/2019 2:26 PM SAND DRIER) Anatomical Region Laterality Modality X-Ray Angiography Specimen (Source) Anatomical Collection Method Collection Time Re ceived Time Location / / Volume Laterality 04/19/2019 10:13 AM SAND DRIER Narrative 04/20/2019 2:47 PM SAND DRIER For the complete report, see the Order-L evRafter Documents. PROCEDURE TYPES 1. ??ABLATION - PVI [...] For the complete report, see the Order-L evRafter Documents. Procedure Note Marla Yeager M.B.B.S. - 04/20/2019F ormatting of this note might be different from the original. For the complete report, see the Order-L evRafter Documents. PROCEDURE TYPES 1. ABLATION - PVI [...] report, see the Order-L evel Documents. Marla Pham CV ELECTROPHYSIOLOGY PROCS (ABNORMAL) ABG and Vondates, POCT (04/19/2019 2:10 PM SAND DRIER) P athologist Signature Sample Site, [facility] 04/19/2019 PCLX POCT 2:16 PM SAND DRIER Comment: ----ADDITIONAL INFORMATION---- Performed at the Point of Care pH, POCT 7.42 7.35 - 7.45 04/19/2019 2:16 PM SAND DRIER PCLX Comment: ----ADDITIONAL INFORMATION---- Performed at the Point of Care pCO2, POCT 44 32 - 45 mm Hg 04/19/2019 2:16 PM SAND DRIER PC LX Comment: ----ADDITIONAL INFORMATION---- Performed at the Point of Care pO2, POCT 455 (H) 83 - 108 mm Hg 04/19/2019 2:16 PM SAND DRIER PC LX Comment: ----ADDITIONAL INFORMATION---- Performed at the Point of Care Base, POCT 4 (H) -2 - 3 mmol/L 04/19/2019 2:16 PM SAND DRIER PC LX Comment: ----ADDITIONAL INFORMATION---- Performed at the Point of Care HCO3, POCT 29 (H) 22 - 26 mmol/L 04/19/2019 2:16 PM SAND DRIER P CLX Comment: ----ADDITIONAL INFORMATION---- Performed at the Point of Care Sodium, POCT, B 137 135 - 145 mmol/L 04/19/2019 2:16 P M SAND DRIER PCLX Comment: ----ADDITIONAL INFORMATION---- Performed at the Point of Care Potassium, POCT, B 3.0 (L) 3.6 - 5.2 mmol/L 04/19/2019 2:1 6 PM SAND DRIER PCLX Comment: ----ADDITIONAL INFORMATION---- Performed at the Point of Care Hematocrit, POCT, B 36.0 35.5 - 44.9 % 04/19/2019 2:16 PM SAND DRIER PCLX Comment: ----ADDITIONAL INFORMATION---- Performed at the Point of Care Specimen Anatomical Collection Method Collection Time Receive d Time (Source) Location / / Volume Laterality Blood 04/19/2019 2:10 PM 0 2:16 SAND DRIER PM SAND DRIER Unknown Provider LAB POCT ORDERABLES - DEVICE Performing Organization Address [facility] Phon e Number POC [facility] [address] [place] [address] [place] [address] [place] [facility] [address] (ABNORMAL) ACT (Activated Clotting Time), POCT (04/19/2019 2:03 PM SAND DRIER) athologist Signature Activated 167 (H) 84 - 139 04/19/2019 PCSM Clotting Time, sec 2:16 PM SAND DRIER POCT Specimen Anatomical Collection Method Collection Time Receive d Time (Source) Location / / Volume Laterality Blood 04/19/2019 2:03 PM 0 2:16 SAND DRIER PM SAND DRIER Unknown Provider LAB POCT ORDERABLES - DEVICE Performing Organization Address [facility] Phon e Number POC [facility] [address] [place], [place] [address] [place] [address] [place] [facility] [address] (ABNORMAL) Glucose, POCT (04/19/2019 2:02 PM SAND DRIER) athologist Signature Glucose, POCT, 193 (H) 70 - 140 04/19/2019 PCLX B mg/dL 2:04 PM SAND DRIER Specimen Anatomical Collection Method Collection Time Receive d Time (Source) Location / / Volume Laterality Blood 04/19/2019 2:02 PM 0 2:04 SAND DRIER PM SAND DRIER Unknown Provider LAB POCT ORDERABLES-MANUAL Performing Organization Address [facility] Phon e Number POC [facility] [address] [place] [address] [place] [address] [facility] [address] [facility] (ABNORMAL) ACT (Activated Clotting Time), POCT (04/19/2019 1:19 PM SAND DRIER) athologist Signature Activated 300 (H) 84 - 139 04/19/2019 PCSM Clotting Time, sec 1:30 PM SAND DRIER POCT Specimen Anatomical Collection Method Collection Time Receive d Time (Source) Location / / Volume Laterality Blood 04/19/2019 1:19 PM 0 1:30 SAND DRIER PM SAND DRIER Unknown Provider LAB POCT ORDERABLES - DEVICE Performing Organization Address [facility] Phon e Number [facility]OC [facility] [address] [place], [place] [address] [place] [address] [facility] [address] [place] [address] (ABNORMAL) ABG and Lytes, POCT (04/19/2019 12:58 PM SAND DRIER) athologist Signature Sample Site, [facility] 04/19/2019 PCLX POCT 1:04 PM SAND DRIER Comment: ----ADDITIONAL INFORMATION---- Performed at the Point of Care pH, POCT 7.41 7.35 - 7.45 04/19/2019 1:04 PM SAND DRIER PCLX Comment: ----ADDITIONAL INFORMATION---- Performed at the Point of Care pCO2, POCT 43 32 - 45 mm Hg 04/19/2019 1:04 PM SAND DRIER PC LX Comment: ----ADDITIONAL INFORMATION---- Performed at the Point of Care pO2, POCT 160 (H) 83 - 108 mm Hg 04/19/2019 1:04 PM SAND DRIER PC LX Comment: ----ADDITIONAL INFORMATION---- Performed at the Point of Care Base, POCT 3 -2 - 3 mmol/L 04/19/2019 1:04 PM SAND DRIER PC LX Comment: ----ADDITIONAL INFORMATION---- Performed at the Point of Care HCO3, POCT 27 (H) 22 - 26 mmol/L 04/19/2019 1:04 PM SAND DRIER P CLX Comment: ----ADDITIONAL INFORMATION---- Performed at the Point of Care Sodium, POCT, B 137 135 - 145 mmol/L 04/19/2019 1:04 P M SAND DRIER PCLX Comment: ----ADDITIONAL INFORMATION---- Performed at the Point of Care Potassium, POCT, B 3.3 (L) 3.6 - 5.2 mmol/L 04/19/2019 1:0 4 PM SAND DRIER PCLX Comment: ----ADDITIONAL INFORMATION---- Performed at the Point of Care Hematocrit, POCT, B 39.0 35.5 - 44.9 % 04/19/2019 1:04 PM SAND DRIER PCLX Comment: ----ADDITIONAL INFORMATION---- Performed at the Point of Care Specimen Anatomical Collection Method Collection Time Receive d Time (Source) Location / / Volume Laterality Blood 04/19/2019 12:58 04/19/2019 1:04 PM SAND DRIER PM SAND DRIER Unknown Provider LAB POCT ORDERABLES - DEVICE Performing Organization Address [facility] Phon e Number POC [facility] [address] [place] [address] [place], [place] [phone] [place] [address] (ABNORMAL) ACT (Activated Clotting Time), POCT (04/19/2019 12:48 PM SAND DRIER) athologist Signature Activated 369 (H) 84 - 139 04/19/2019 PCSM Clotting Time, sec 1:04 PM SAND DRIER POCT Specimen Anatomical Collection Method Collection Time Receive d Time (Source) Location / / Volume Laterality Blood 04/19/2019 12:48 04/19/2019 1:04 PM SAND DRIER PM SAND DRIER Unknown Provider LAB POCT ORDERABLES - DEVICE Performing Organization Address [facility] Phon e Number POC [facility] [address] [place], [place] [address] LABS [place], [place] [phone] [place] [address] POC [address] [place] [address] (ABNORMAL) Glucose, POCT (04/19/2019 12:47 PM SAND DRIER) athologist Signature Glucose, POCT, 199 (H) 70 - 140 04/19/2019 PCLX B mg/dL 12:49 PM SAND DRIER Site [facility] 04/19/2019 PCLX 12:49 PM SAND DRIER Specimen Anatomical Collection Method Collection Time Receive d Time (Source) Location / / Volume Laterality Blood 04/19/2019 12:47 04/19/2019 PM SAND DRIER 12:49 PM SAND DRIER Unknown Provider LAB POCT ORDERABLES-MANUAL Performing Organization Address City/State/ZIP Code Phon e Number POC [facility] [address] [place] [address] [place] [address] [facility] [address] (ABNORMAL) ACT (Activated Clotting Time), POCT (04/19/2019 12:19 PM SAND DRIER) P athologist Signature Activated 341 (H) 84 - 139 04/19/2019 PCSM Clotting Time, sec 12:30 PM SAND DRIER POCT Specimen Anatomical Collection Method Collection Time Receive d Time (Source) Location / / Volume Laterality Blood 04/19/2019 12:19 04/19/2019 PM SAND DRIER 12:30 PM SAND DRIER Unknown Provider LAB POCT ORDERABLES - DEVICE Performing Organization Address [facility] Phon e Number POC [facility] [address] [place], [place] [address] [place] [address] [facility] [address] (ABNORMAL) Prothrombin Time (PT) (04/19/2019 12:16 PM SAND DRIER) Patholo gist Method Time Signature Prothrombin 95.8 (H) 9.4 - 12.5 04/19/2019 STMA Time, P sec 12:49 PM SAND DRIER INR 8.3 (CH) 0.9 - 1.1 04/19/2019 STMA 12:49 PM SAND DRIER Comment: ----ADDITIONAL INFORMATION---- Standard intensity warfarin therapeutic range: 2.0 to 3.0 ?? High intensity warfarin therapeutic rang e: 2.5 to 3.5 Specimen Anatomical Collection Method Collection Time Receive d Time (Source) Location / / Volume Laterality Blood (Blood, 04/19/2019 12:16 04/19/2019 Venous) PM SAND DRIER 12:23 PM SAND DRIER Aria Houser APRN C.N.P., M.S.N. LAB BLOOD ADD-ON Performing Organization Address City/State/ZIP [facility] Phon e Number [facility] - [address] [place], [place] [address] [facility] [place] [address] [facility] [place] [address] (ABNORMAL) ACT (Activated Clotting Time), POCT (04/19/2019 11:55 AM SAND DRIER) P athologist Signature Activated 296 (H) 84 - 139 04/19/2019 PCSM Clotting Time, sec 12:06 PM SAND DRIER POCT Specimen Anatomical Collection Method Collection Time Receive d Time (Source) Location / / Volume Laterality Blood 04/19/2019 11:55 04/19/2019 AM SAND DRIER 12:06 PM SAND DRIER Unknown Provider LAB POCT ORDERABLES - DEVICE Performing Organization Address City/[facility] Phon e Number POC [facility] [address] [place], [place] [address] LABS [place], [place] [phone] [place] [address] (ABNORMAL) ACT (Activated Clotting Time), POCT (04/19/2019 11:27 AM SAND DRIER) P athologist Signature Activated 353 (H) 84 - 139 04/19/2019 PCSM Clotting Time, sec 11:38 AM SAND DRIER POCT Specimen Anatomical Collection Method Collection Time Receive d Time (Source) Location / / Volume Laterality Blood 04/19/2019 11:27 04/19/2019 AM SAND DRIER 11:39 AM SAND DRIER Unknown Provider LAB POCT ORDERABLES - DEVICE Performing Organization Address [facility] Phon e Number POC [facility] [address] [place], [place] [address] LABS [place], [place] [phone] [place] [address] (ABNORMAL) ACT (Activated Clotting Time), POCT (04/19/2019 11:05 AM SAND DRIER) P athologist Signature Activated 296 (H) 84 - 139 04/19/2019 PCSM Clotting Time, sec 11:17 AM SAND DRIER POCT Specimen Anatomical Collection Method Collection Time Receive d Time (Source) Location / / Volume Laterality Blood 04/19/2019 11:05 04/19/2019 AM SAND DRIER 11:17 AM SAND DRIER Unknown Provider LAB POCT ORDERABLES - DEVICE Performing Organization Address City/[facility] Phon e Number POC [facility] [address] [place], [place] [address] [place] [address] [facility] [address] (ABNORMAL) Basic Metabolic Panel (04/19/2019 10:46 AM SAND DRIER) P athologist Signature Potassium, P 3.6 3.6 - 5.2 04/19/2019 STMA mmol/L 11:18 AM SAND DRIER Sodium, P 139 135 - 145 04/19/2019 STMA mmol/L 11:18 AM SAND DRIER Chloride, P 100 98 - 107 04/19/2019 STMA mmol/L 11:18 AM SAND DRIER Bicarbonate, P 25 22 - 29 04/19/2019 STMA mmol/L 11:18 AM SAND DRIER Anion Gap, P 14 7 - 15 04/19/2019 STMA 11:18 AM SAND DRIER BUN (Blood Urea 12 6 - 21 04/19/2019 STMA Nitrogen), P mg/dL 11:18 AM SAND DRIER Creatinine 0.76 0.59 - 04/19/2019 STMA 1.04 mg/dL 11:18 AM SAND DRIER eGFR-Black/Afric >90 >=60 04/19/2019 STMA an [place] mL/min/BSA 11:18 AM SAND DRIER Comment: ----ADDITIONAL INFORMATION---- Estimated GFR calculated using the 2009 CKD_EPI creatinine equation. eGFR Non-Black/ 84 >=60 mL/min/BSA 04/19/2019 11:18 AM SAND DRIER STMA Comment: ----ADDITIONAL INFORMATION---- Estimated GFR calculated using the 2009 CKD_EPI creatinine equation. Calcium, Total, P 8.8 8.8 - 10.2 mg/dL 04/19/2019 11:1 8 AM SAND DRIER STMA Glucose, P 210 (H) 70 - 140 mg/dL 04/19/2019 11:18 AM SAND DRIER STMA Specimen Anatomical Collection Method Collection Time Receive d Time (Source) Location / / Volume Laterality Blood (Blood, 04/19/2019 10:46 04/19/2019 Venous) AM SAND DRIER 11:01 AM SAND DRIER Renetta Greer APRN C.N.P., D.N.P. LAB BLOOD ADD-ON Performing Organization Address City/State/ZIP Code Phon e Number [facility] - [address] [place], [place] [address] [place] [address] [facility] [address] (ABNORMAL) CBC with Differential, Blood (04/19/2019 10:46 AM SAND DRIER) Patholo gist Method Time Signature Hemoglobin 13.6 11.6 - 04/19/2019 STMA 15.0 g/dL 11:10 AM SAND DRIER Hematocrit 40.1 35.5 - 04/19/2019 STMA 44.9 % 11:10 AM SAND DRIER Erythrocytes 4.42 3.92 - 04/19/2019 STMA 5.13 11:10 AM SAND DRIER x10(12)/L MCV 90.7 78.2 - 04/19/2019 STMA 97.9 fL 11:10 AM SAND DRIER RBC Distrib Width 11.9 (L) 12.2 - 04/19/2019 STMA 16.1 % 11:10 AM SAND DRIER Platelet Count 359 157 - 371 04/19/2019 STMA x10(9)/L 11:10 AM SAND DRIER Leukocytes 9.0 3.4 - 9.6 04/19/2019 STMA x10(9)/L 11:10 AM SAND DRIER Neutrophils 5.07 1.56 - 04/19/2019 STMA 6.45 11:10 AM SAND DRIER x10(9)/L Lymphocytes 2.74 0.95 - 04/19/2019 STMA 3.07 11:10 AM SAND DRIER x10(9)/L Monocytes 0.65 0.26 - 04/19/2019 STMA 0.81 11:10 AM SAND DRIER x10(9)/L Eosinophils 0.40 0.03 - 04/19/2019 STMA 0.48 11:10 AM SAND DRIER x10(9)/L Basophils 0.14 (H) 0.01 - 04/19/2019 STMA 0.08 11:10 AM SAND DRIER x10(9)/L Specimen Anatomical Collection Method Collection Time Receive d Time (Source) Location / / Volume Laterality Blood (Blood, 04/19/2019 10:46 04/19/2019 Venous) AM SAND DRIER 11:01 AM SAND DRIER Renetta Greer APRN, C.N.P., D.N.P. LAB BLOOD ADD-ON Performing Organization Address City/State/ZIP Code Phon e Number [facility] - [address] [place], [place] [address] [facility] [place] [address] [facility] [address] (ABNORMAL) Prothrombin Time (PT) (04/19/2019 10:46 AM SAND DRIER) [facility] gist Method Time Signature Prothrombin 58.0 (H) 9.4 - 12.5 [facility] sec 11:14 AM [facility] INR 5.1 (CH) 0.9 - 1.1 04/19/2019 [facility] Comment: ----ADDITIONAL INFORMATION---- Standard intensity warfarin therapeutic range: 2.0 to 3.0 ?? High intensity warfarin therapeutic rang e: 2.5 to 3.5 Specimen Anatomical Collection Method Collection Time Receive d Time (Source) Location / / Volume Laterality Blood (Blood, 04/19/2019 10:46 04/19/2019 Venous) AM SAND DRIER 11:01 AM SAND DRIER Ana Pickett APRN.N.P., D.N.P. LAB BLOOD ADD-ON Performing Organization Address City/[facility] Phon e Number [facility] - [address] [place] [address] Type and Screen (with reflex Antibody ID) (04/19/2019 10:45 AM SAND DRIER) [facility] gist Method Time Signature ABORh A Pos Not 04/19/2019 STRM applicable 11:25 AM SAND DRIER Antibody Negative Negative 04/19/2019 STRM Screen 11:40 AM SAND DRIER Type & Screen 04/22/2019 04/19/2019 STRM Expiration 23:59 11:25 AM SAND DRIER Testing Krista DEFAULT 04/19/2019 STRM Location 11:00 AM SAND DRIER Specimen Anatomical Collection Method Collection Time Receive d Time (Source) Location / / Volume Laterality Blood (Arm, 04/19/2019 10:45 04/19/2019 Right) AM SAND DRIER 11:00 AM SAND DRIER Ana Pickett APRN.N.P., D.N.P. LAB BLOOD BANK T EST ORDERABLES Performing Organization Address [facility]/ZIP [facility] Phon e Number [facility] - [address] (ABNORMAL) Glucose, POCT (04/19/2019 10:44 AM SAND DRIER) P athologist Signature Glucose, POCT, 206 (H) 70 - 140 04/19/2019 [facility] B mg/dL 10:55 AM SAND DRIER Site ARTLINE 04/19/2019 [facility] 10:55 AM SAND DRIER Specimen Anatomical Collection Method Collection Time Receive d Time (Source) Location / / Volume Laterality Blood 04/19/2019 10:44 04/19/2019 AM SAND DRIER 10:55 AM SAND DRIER Unknown Provider LAB POCT ORDERABLES-MANUAL Performing Organization Address [facility] Phon e Number POC [facility] [address] [place] [address] [place] [address] [place] [facility] 200 [facility] (ABNORMAL) ACT (Activated Clotting Time), POCT (04/19/2019 10:41 AM SAND DRIER) athologist Signature Activated 341 (H) 84 - 139 04/19/2019 P[facility] Clotting Time, sec 10:53 AM SAND DRIER POCT Specimen Anatomical Collection Method Collection Time Receive d Time (Source) Location / / Volume Laterality Blood 04/19/2019 10:41 04/19/2019 AM SAND DRIER 10:53 AM SAND DRIER Unknown Provider LAB POCT ORDERABLES - DEVICE Performing Organization Address [facility] Phon e Number POC [facility] INPATIENT [address] [place], [place] [address] [place] [address] [facility] [address] [place] [address] Echo - Intraprocedural Images Only (04/19/2019 8:52 AM SAND DRIER) Specimen (Source) Anatomical Location Collection Method / Collectio n Time Received Time / Laterality Volume Narrative CV EIMS - 04/21/2019 8:52 AM SAND DRIER Echocardiographic images obtained during EP. See EP report for findings. Marla Pham CV ECHO PROCEDURES Performing Organization Address [facility] Phon e Number CV EIMS NA INR, POCT (04/19/2019 8:37 AM SAND DRIER) P athologist Signature INR, POCT, B 2.4 04/19/2019 PCED 11:59 AM SAND DRIER Comment: ----ADDITIONAL INFORMATION---- Standard intensity warfarin therapeutic range: 2.0 to 3.0 ?? High intensity warfarin therapeutic rang e: 2.5 to 3.5 Specimen Anatomical Collection Method Collection Time Receive d Time (Source) Location / / Volume Laterality 04/19/2019 8:37 AM 0 SAND DRIER 11:59 AM SAND DRIER Unknown Provider LAB POCT ORDERABLES - DEVICE Performing Organization Address City/[facility]/ZIP Code Phon e Number POC [facility] [address] [place] [address] [place] [address] [facility] 200 [facility] (ABNORMAL) Glucose, POCT (04/19/2019 8:37 AM SAND DRIER) P athologist Signature Glucose, POCT, 224 (H) 70 - 140 04/19/2019 PCLX B mg/dL 8:41 AM SAND DRIER Specimen Anatomical Collection Method Collection Time Receive d Time (Source) Location / / Volume Laterality Blood 04/19/2019 8:37 AM 0 8:41 SAND DRIER AM SAND DRIER Unknown Provider LAB POCT ORDERABLES-MANUAL Performing Organization Address [facility] Phon e Number POC [facility] [address] [place] [address] [place] [address] [facility] 200 [facility] documented in this encounter Visit Diagnoses Diagnosis [...] tablet 1,000 mg Given 04/21/2019 9:55 AM SAND DRIER 1,000 mg (TYLENOL) 1,000 mg, oral, Every 6 hours PRN, mild pain or score 1-3 of 10, Starting on Fri04/19/19 at 1502, Postprocedure (CV) benzocaine-menthol 15-3.6 mg per lozenge 1 Given 04/21 9:55 AM SAND DRIER 1 lozenge lozenge (CEPACOL) 1 lozenge, oral, Every 4 hours PRN, sore throat, Starting on Fri04/19/19 at 0934, Postprocedure (CV) Given 04/21/2019 4:53 AM SAND DRIER 1 lozenge Given 04/20/2019 9:14 PM SAND DRIER 1 lozenge clotrimazole-betamethasone 1-0.05 % Given 04/21/2019 8:36 AM SAND DRIER 1 application cream 1 application (LOTRISONE) 1 application, topical, 2 times daily, First dose on Fri04/19/19 at 2100, Postprocedure (CV) Given 04/20/2019 8:20 PM SAND DRIER 1 application Given 04/20/2019 8:49 AM SAND DRIER 1 application docusate sodium capsule 100 mg (COLACE) Given 04/21/2019 10:29 AM SAND DRIER 100 mg 100 mg, oral, 2 times daily PRN, constipation, Starting on Fri04/19/19 at 1502, Postprocedure (CV), Do NOT crush or chew. DULoxetine DR capsule 30 mg (CYMBALTA) Given 04/21/2019 8:38 AM SAND DRIER 30 mg 30 mg, oral, 2 times daily, First dose on Fri04/19/19 at 2100, Postprocedure (CV), See tube feeding guidelines for tube feeding administration instructions. Given 04/20/2019 8:13 PM SAND DRIER 30 mg Given 04/20/2019 8:46 AM SAND DRIER 30 mg ferrous sulfate tablet 65 mg of iron Given 04/21/2019 8:37 AM SAND DRIER 65 mg of iron 65 mg of iron, oral, Daily, First dose on Fri04/20/19 at 0900, Postprocedure (CV) Given 04/20/2019 8:45 AM SAND DRIER 65 mg of iron flecainide tablet 100 mg (TAMBOCOR) Given 04/21/2019 8:38 AM SAND DRIER 100 mg 100 mg, oral, 2 times daily, First dose on Fri04/19/19 at 2100 Given 04/20/2019 8:13 PM SAND DRIER 100 mg Given 04/20/2019 8:45 AM SAND DRIER 100 mg fluticasone furoate 100 mcg/actuation inhaler Given 8:36 AM SAND DRIER 1 puff 1 puff (ARNUITY ELLIPTA) 1 puff, inhalation, Daily, First dose on Fri04/20/19 at 0900, Postprocedure (CV), Rinse mouth with water after use to reduce aftertaste and incidence of candidiasis. Do not swallow. Given 04/20/2019 8:48 AM SAND DRIER 1 puff furosemide injection 20 mg (LASIX) Given 04/20/2019 9:13 AM SAND DRIER 20 mg 20 mg, intravenous, Once, On Fri04/20/19 at 0700, For 1 dose, Adults: Doses less than 120 mg: IV push over 20 mg/minute. Doses 120 mg or greater: IVPB at 4 mg/minute. Peds/Neonates: Doses less than 120 mg over 0.5 mg/kg/minute. Doses 120 mg or greater: IVPB at 4 mg/minute. furosemide injection 20 mg (LASIX) Given 04/20/2019 1:25 PM SAND DRIER 20 mg 20 mg, intravenous, Once, On Fri04/20/19 at 1330, For 1 dose, N/a furosemide injection 40 mg (LASIX) Given 04/21/2019 6:30 AM SAND DRIER 40 mg 40 mg, intravenous, Once, On Fri04/21/19 at 0700, For 1 dose, N/a levothyroxine tablet 25 mcg (SYNTHROID, Given 04/21/2019 6:30 AM SAND DRIER 25 mcg LEVOTHROID) 25 mcg, oral, Daily before breakfast, First dose on Fri04/20/19 at 0700, Postprocedure (CV) Given 04/20/2019 5:37 AM SAND DRIER 25 mcg lidocaine 10 mg/mL (1 %) injection 1 Given 04/19/2019 1:46 PM CS T 7 mL Bilateral mL (XYLOCAINE) 1 mL, intradermal, As needed, with any sheath manipulation. (May repeat twice up to 1 mL each time if patient complains of pain or discomfort at injection site), Starting on Fri04/19/19 at 0911, Intraprocedure (CV) Given 04/19/2019 10:15 AM SAND DRIER 10 mL Othe r magnesium sulfate in water IVPB 2 g New Bag 04/19/2019 6:06 PM SAND DRIER 2 g 25 mL/hr 2 g, intravenous, at 25 mL/hr, Administer over 120 Minutes, Once, On Fri04/19/19 at 1745, For 1 dose, Over 2 hours. premix bag metFORMIN tablet 500 mg (GLUCOPHAGE) Given 04/21/2019 8:38 AM SAND DRIER 500 mg 500 mg, oral, 2 times daily with meals, First dose on 1/27/20 at 1700 Given 04/20/2019 5:20 PM SAND DRIER 500 mg Given 04/20/2019 8:46 AM SAND DRIER 500 mg methyl salicylate-menthol 30-10 % cream 1 application (ICY HOT) 1 application, topical, Every 2 hour PRN, muscle/joint pain, Starting on Fri04/19/19 at 1628, @@ Generic Substitution for Johnny @@ @ metoprolol tartrate tablet 50 mg (LOPRES SOR) Given 04/21/2019 8:37 AM SAND DRIER 50 mg 50 mg, oral, 2 times daily, First dose on Fri04/19/19 at 2100 Given 04/20/2019 8:13 PM SAND DRIER 50 mg Given 04/20/2019 8:45 AM SAND DRIER [address] capsule 40 mg (PriLOSEC) Given 04/21/2019 6:30 AM SAND DRIER 40 mg 40 mg, oral, Daily before breakfast, First dose on Fri04/21/19 at 0700, Postprocedure (CV), Do NOT crush or chew. Capsule may be opened and the contents taken without crushing or chewing. potassium chloride ER tablet 40 mEq Given 04/19/2019 6:02 PM SAND DRIER 40 mEq (KLORCON/K-TAB) 40 mEq, oral, Once, [...] 8.6 mg (SENOKOT) Given 04/21/2019 10:29 AM SAND DRIER 8.6 mg 8.6 mg, oral, As needed, constipation, Starting on Fri04/19/19 at 0930, Postprocedure (CV) simvastatin tablet 20 mg (ZOCOR) Given 04/20/2019 8:13 PM SAND DRIER 20 mg 20 mg, oral, Daily at bedtime, First dose on Fri04/19/19 at 2100, Postprocedure (CV) Given 04/19/2019 8:12 PM SAND DRIER 20 mg sodium chloride 0.9 % injection 10 mL 10 mL, intravenous, As needed, line care , Peripheral Intravenous Catheter and Rapid Infusion Catheter, Starting on Fri at 2109, Prior to blood sampling, post blood transfusion or post blood sampling. sodium chloride 0.9 % injection 3 mL Given 04/20/2019 9:15 PM SAND DRIER 3 mL 3 mL, intravenous, As needed, line care, Peripheral Intravenous Catheter and Rapid Infusion Catheter, Starting on Fri04/20/19 at 2109, Prior to and following infusion and between multiple consecutive infusions. sodium chloride 0.9 % injection 3 mL Given 04/21/2019 8:38 AM SAND DRIER 3 mL 3 mL, intravenous, Every 12 hours scheduled, First dose on Fri04/21/19 at 0900, Peripheral Intravenous Catheter and Rapid Infusion Catheter: When no infusion to maintain patency. SUMAtriptan tablet 50 mg (IMITREX) Given 04/21/2019 4:44 AM SAND DRIER 50 mg 50 mg, oral, Every 2 hour PRN, migraine, Starting on Fri04/19/19 at 0930, For 2 doses, Postprocedure (CV), SUMAtriptan oral was interchanged for rizatriptan Given 04/20/2019 11:29 AM SAND DRIER 50 mg topiramate tablet 25 mg (TOPAMAX) Given 04/21/2019 8:38 AM SAND DRIER 25 mg 25 mg, oral, Daily, First dose on Fri04/20/19 at 0900, Postprocedure (CV) Given 04/20/2019 8:46 AM SAND DRIER 25 mg warfarin management (COUMADIN) oral, Daily, [...] 6 mg (COUMADIN) Given 04/19/2019 6:02 PM SAND DRIER 6 mg 6 mg, oral, Once, On Fri04/19/19 at 1700, For 1 dose warfarin tablet 6 mg (COUMADIN) Given 04/20/2019 5:20 PM SAND DRIER 6 mg 6 mg, oral, Once, On Fri04/20/19 at 1700, For 1 dose documented in this encounter Active and Recently Administered Medications Times are shown in SAND DRIER. Scheduled Medication Order 04/19/2019 04/20/2019 04/21/2019 clotrimazole-betamethasone 1-0.05 % cream 1 applicatio n (LOTRISONE) 2011 (Given - Provider: Naren Michaels R.N.) 0849 (Given - Provider: Jhony smith R.NEdilma)2019 (Given - Provider: Valerie Jaquez R.N.) 0836 (Given - Provider: Talya Duffy R.N.)0945 ([facility] Hold - Provider: Transfer Provider, Automatic - Reason: Patient not available)0954 ([facility] Unhold - Provider: Transfer Provider, Automatic) 1 application, topical, 2 times daily, F irst dose on Fri04/19/19 at 2100, Postprocedure (CV) DULoxetine DR capsule 30 mg (CYMBALTA) 2011 (Given - P rovider: Naren Michaels R.N.) 0846 (Given - Provider: Jhony smith REdilmaNEdilma)2012 (Given - Provider: Valerie Jaquez R.N.) 0838 (Given - Provider: Talya Duffy RMary Ann)0945 ([facility] Hold - Provider: Transfer Provider, Automatic - Reason: Patient not available)0954 ([facility] Unhold - Provider: Transfer Provider, Automatic) 30 mg, oral, 2 times daily, First dose o n Fri04/19/19 at 2100, Postprocedure (CV), See tube feeding guidelines for tube feeding administration instructions. ferrous sulfate tablet 65 mg of iron 084 5 (Given - Provider: Jhony Diego R.N.) 0837 (Given - Provider: Talya tierney REdilmaNEdilma)0945 ([facility] Hold - Provider: Transfer Provider, Automatic - Reason: Patient not available)0954 ([facility] Unhold - Provider: Transfer Provider, Automatic) 65 mg of iron, oral, Daily, First dose o n Fri04/20/19 at 0900, Postprocedure (CV) flecainide tablet 100 mg (TAMBOCOR) 2011 (Given - Prov ider: Naren Michaels RMary Ann) 0845 (Given - Provider: Jhony smith REdilmaNEdilma)2012 (Given - Provider: Valerie Jaquez REdilmaNEdilma) 0838 (Given - Provider: Talya tierney REdilmaNEdilma)0945 ([facility] Hold - Provider: Transfer Provider, Automatic - Reason: Patient not available)0954 ([facility] Unhold - Provider: Transfer Provider, Automatic) 100 mg, oral, 2 times daily, First dose on Fri04/19/19 at 2100 fluticasone furoate 100 mcg/actuation inhaler 1 puff (ARNUIT Y ELLIPTA) 0848 (Given - Provider: Jhony Diego R.N.) 0836 (Given - Provider: Talya Duffy REdilmaNEdilma)0945 ([facility] Hold - Provider: Transfer Provider, Automatic - Reason: Patient not available)0954 ([facility] Unhold - Provider: Transfer Provider, Automatic) 1 puff, inhalation, Daily, First dose on Fri04/20/19 at 0900, Postprocedure (CV), Rinse mouth with water after use to reduce aftertaste and incidence of candidiasis. Do not swallow. furosemide injection 20 mg (LASIX) (COMPLETED) 912 (Given - Provider: Jhony Diego RMary Ann) 20 mg, intravenous, Once, On Fri04/20/19 at [...] a furosemide injection 40 mg (LASIX) (COMPLETED) 06 (Given - Provider: Candy Deluna REdilmaNEdilma) 40 mg, intravenous, Once, On Fri04/21/19 at 0700, For 1 dose, N/ a levothyroxine tablet 25 mcg (SYNTHROID, LEVOTHROID) 0537 (Given - Provider: Naren Michaels R.N.) 0630 (Given - Provider: Candy Deluna REdilmaNEdilma)0945 ([facility] Hold - Provider: Transfer Provider, Automatic - Reason: Patient not available)0954 ([facility] Unhold - Provider: Transfer Provider, Automatic) 25 mcg, oral, Daily before breakfast, Fi rst dose on Fri04/20/19 at 0700, Postprocedure (CV) magnesium sulfate in water IVPB 2 g (COMPLETED) 180 ( New Bag - Provider: Jhony Diego R.N.) 2 g, intravenous, at 25 mL/hr, Administe r over 120 Minutes, Once, On Fri04/19/19 at 1745, For 1 dose, Over 2 hours. premix bag metFORMIN tablet 500 mg (GLUCOPHAGE) 1802 (Given - Pro vider: Jhony Diego RMary Ann) 0846 (Given - Provider: Jhony smith R.N.)1720 (Given - Provider: Jhony Diego RMary Ann) 0838 (Given - Provider: Talya tierney R.N.)0945 ([facility] Hold - Provider: Transfer Provider, Automatic - Reason: Patient not available)0954 ([facility] Unhold - Provider: Transfer Provider, Automatic) 500 mg, oral, 2 times daily with meals, First dose on Fri 0 at 1700 metoprolol tartrate tablet 50 mg (LOPRESSOR) 2011 (Giv en - Provider: Naren Michaels RMary Ann) 0845 (Given - Provider: Jhony smith R.N.)2012 (Given - Provider: Valerie Jaquez REdilmaNEdilma) 0837 (Given - Provider: Talya Duffy R.N.)0945 ([facility] Hold - Provider: Transfer Provider, Automatic - Reason: Patient not available)0954 ([facility] Unhold - Provider: Transfer Provider, Automatic) 50 mg, oral, 2 times daily, First dose on Fri04/19/[address] capsule 40 mg (PriLOSEC) 0630 (Given - Provider: Candy Deluna R.N.)0945 ([facility] Hold - Provider: Transfer Provider, Automatic - Reason: Patient not available)0954 ([facility] Unhold - Provider: Transfer Provider, Automatic) 40 mg, oral, Daily before breakfast, Fir st dose on Fri04/21/19 at 0700, Postprocedure (CV), Do NOT crush or chew. Capsule may be opened and the contents taken without crushing or chewing. potassium chloride ER tablet 40 mEq (KLORCON/K-TAB) (C OMPLETED) 1801 (Given - Provider: Jhony Diego REdilmaNEdilma) 40 mEq, oral, Once, On Fri04/19/19 at 16 30, For 1 dose, Give with food Swallow whole. Do NOT crush, chew, or split tablet. simvastatin tablet 20 mg (ZOCOR) 2011 (Given - Provide r: Naren Michaels REdilmaNEdilma) 2012 (Given - Provider: Valerie Jaquez RMary Ann) 0945 ([facility] Hold - Provider: Transfer Provider, Automatic - Reason: Patient not available)0954 ([facility] Unhold - Provider: Transfer Provider, Automatic) 20 mg, oral, Daily at bedtime, First dos e on Fri04/19/19 at 2100, Postprocedure (CV) sodium chloride 0.9 % injection 3 mL 0838 (Given - Provider: Talya Duffy REdilmaNEdilma)0945 ([facility] Hold - Provider: Transfer Provider, Automatic - Reason: Patient not available)0954 ([facility] Unhold - Provider: Transfer Provider, Automatic) 3 mL, intravenous, Every 12 hours schedu led, First dose on Fri04/21/19 at 0900, Peripheral Intravenous Catheter and Rapid Infusion Catheter: When no infusion to maintain patency. topiramate tablet 25 mg (TOPAMAX) 0846 ( Given - Provider: Jhony Diego RMary Ann) 0838 (Given - Provider: Talya tierney R.N.)0945 ([facility] Hold - Provider: Transfer Provider, Automatic - Reason: Patient not available)0954 ([facility] Unhold - Provider: Transfer Provider, Automatic) 25 mg, oral, Daily, First dose on Fri04/20/19 at 0900, Postproce dure (CV) warfarin management (COUMADIN) 1700 (Due) 0 945 ([facility] Hold - Provider: Transfer Provider, Automatic - Reason: Patient not available)0954 ([facility] Unhold - Provider: Transfer Provider, Automatic) oral, [...] 04/21/2019 acetaminophen tablet 1,000 mg (TYLENOL) 0945 ([facility] Hold - Provider: Transfer Provider, Automatic - Reason: Patient not available)0954 ([facility] Unhold - Provider: Transfer Provider, Automatic)0955 (Given - Provider: Talya Duffy R.N.) 1,000 mg, oral, Every 6 hours PRN, mild pain or score 1-3 of 10, Starting on Fri04/19/19 at 1502, Postprocedure (CV) albuterol 90 mcg/actuation inhaler 2 puff (PROVENTIL HFA,VENTOLI N HFA) 0945 ([facility] Hold - Provider: Transfer Provider, Automatic - Reason: Patient not available)0953 ([facility] Unhold - Provider: Transfer Provider, Automatic) 2 puff, inhalation, Every 4 hours PRN, s hortness of breath, Starting Fri04/19/19 at 0928, Postprocedure (CV) alum-mag hydroxide-simeth 200-200-20 mg/5 mL suspension 15 mL (M AALOX) 0945 ([facility] Hold - Provider: Transfer Provider, Automatic - Reason: Patient not available)0953 ([facility] Unhold - Provider: Transfer Provider, Automatic) 15 mL, oral, Every 6 hours PRN, indigest ion, Starting Fri04/19/19 at 0928, Postprocedure (CV) atropine injection 0.5 mg 0945 ( [facility] Hold - Provider: Transfer Provider, Automatic - Reason: Patient not available)0954 ([facility] Unhold - Provider: Transfer Provider, Automatic) 0.5 mg, intravenous, Once as needed, for pulse less than 50 beats per minute, Starting Fri04/19/19 at 1502, For 1 dose, Postprocedure (CV) benzocaine-menthol 15-3.6 mg per lozenge 1 lozenge (CE PACOL) 2 (Given - Provider: Naren Michaels REdilmaN.) 0242 (Given - Provider: Naren mendiola R.N.)0913 (Given - Provider: Jhony Diego R.N.)1720 (Given - Provider: Jhony Diego R.N.)2114 (Given - Provider: Valerie Jaquez R.N.) 0453 (Given - Provider: Aria Green R.N.)0945 ([facility] Hold - Provider: Transfer Provider, Automatic - Reason: Patient not available)0954 ([facility] Unhold - Provider: Transfer Provider, Automatic)0955 (Given - Provider: Talya Duffy R.NEdilma) 1 lozenge, oral, Every 4 hours PRN, sore throat, Starting on Fri04/19/19 at 0934, Postprocedure (CV) carboxymethylcellulose 0.5 % ophthalmic solution 1 drop (REFRESH PLUS) 0945 ([facility] Hold - Provider: Transfer Provider, Automatic - Reason: Patient not available)0954 ([facility] Unhold - Provider: Transfer Provider, Automatic) 1 drop, both eyes, 4 times daily PRN, dr alber eyes, Starting Fri04/19/19 at 0931, Postprocedure (CV) diazePAM tablet 2 mg (VALIUM) 09 45 ([facility] Hold - Provider: Transfer Provider, Automatic - Reason: Patient not available)0954 ([facility] Unhold - Provider: Transfer Provider, Automatic) 2 mg, oral, Every 2 hour PRN, anxiety, m uscle spasms, Starting 04/19/19 at 1502, For 2 doses, Postprocedure (CV), May repeat once if first dose ineffective. Until sheath removal. docusate sodium capsule 100 mg (COLACE) 0945 ([facility] Hold - Provider: Transfer Provider, Automatic - Reason: Patient not available)0954 ([facility] Unhold - Provider: Transfer Provider, Automatic)1038 (Not Given - Provider: Talya Duffy R.Marlon. - Reason: Other) 100 mg, oral, 2 times daily PRN, constip ation, Starting Fri04/19/19 at 0934, Postprocedure (CV), Do NOT crush or chew. docusate sodium capsule 100 mg (COLACE) 0945 ([facility] Hold - Provider: Transfer Provider, Automatic - Reason: Patient not available)0954 ([facility] Unhold - Provider: Transfer Provider, Automatic)1029 (Given - Provider: Talya Duffy R.NEdilma) 100 mg, oral, 2 times daily PRN, constip ation, Starting on Fri04/19/19 at 1502, Postprocedure (CV), Do NOT crush or chew. fentaNYL injection 25 mcg (SUBLIMAZE) 0945 ([facility] Hold - Provider: Transfer Provider, Automatic - Reason: Patient not available)0954 ([facility] Unhold - Provider: Transfer Provider, Automatic) 25 mcg, intravenous, Every 2 hour PRN, m oderate pain or score 4-6 of 10, Starting 04/19/19 at 1502, Postprocedure (CV), May repeat once in dosing interval, if patient unable to take oral analgesics or oral analgesics are ineffective fentaNYL injection 50 mcg (SUBLIMAZE) 0945 ([facility] Hold - Provider: Transfer Provider, Automatic - Reason: Patient not available)0954 ([facility] Unhold - Provider: Transfer Provider, Automatic) 50 mcg, intravenous, Every 2 hour PRN, s evere pain or score 7-10 of 10, Starting 04/19/19 at 1502, Postprocedure (CV), May repeat once [...] pain or discomfort at injection site), Starting on Fri04/19/19 at 0911, Intraprocedure (CV) melatonin tablet 3 mg 0945 ([facility] Hold - Provider: Transfer Provider, Automatic - Reason: Patient not available)0954 ([facility] Unhold - Provider: Transfer Provider, Automatic) 3 mg, oral, Bedtime PRN, sleep, Starting Fri04/19/19 at 0934, Postprocedure (CV) methyl salicylate-menthol 30-10 % cream 1 application (ICY HOT) 0945 ([facility] Hold - Provider: Transfer Provider, Automatic - Reason: Patient not available)0954 ([facility] Unhold - Provider: Transfer Provider, Automatic) 1 application, topical, Every 2 hour PRN , muscle/joint pain, Starting on Fri04/19/19 at 1628, @@ Generic Substitution for BenGay @@@ midazolam (PF) injection 1 mg (VERSED) 0945 ([facility] Hold - Provider: Transfer Provider, Automatic - Reason: Patient not available)0954 ([facility] Unhold - Provider: Transfer Provider, Automatic) 1 mg, intravenous, Every 2 hour PRN, anx iety, muscle spasms, Starting Fri04/19/19 at 1502, For 2 doses, Postprocedure (CV), for over 2 minutes. May repeat x1 dosing interval. Patient must be NPO for 2 hours prior to giving. Until sheath removal. naloxone injection 0.2 mg (NARCAN) 0945 ([facility] Hold - Provider: Transfer Provider, Automatic - Reason: Patient not available)0954 ([facility] Unhold - Provider: Transfer Provider, Automatic) 0.2 mg, intravenous, As needed, respirat ory depression, Starting Fri04/19/19 at 1502, Postprocedure (CV), For respiratory rate less than 8 breaths per minute or RASS score of -3, -4, -5. Apply oxygen to keep oxygen saturations greater than 90% and notify service. oxyCODONE IR tablet 5 mg (ROXICODONE) 0945 ([facility] Hold - Provider: Transfer Provider, Automatic - Reason: Patient not available)0954 ([facility] Unhold - Provider: Transfer Provider, Automatic) 5 mg, oral, Every 6 hours PRN, moderate pain or score 4-6 of 10, Starting Fri04/19/19 at 1502, Postprocedure (CV), If acetaminophen ineffective and patient able to take oral analgesics polyethylene glycol powder packet 17 g (MIRALAX) 0945 ([facility] Hold - Provider: Transfer Provider, Automatic - Reason: Patient not available)0954 ([facility] Unhold - Provider: Transfer Provider, Automatic) 17 g, oral, As needed, constipation, Sta rting Fri04/19/19 at 0929, For 237 days, Postprocedure (CV), Dissolve in 240 mLs (8 ounces) of water prior to giving. Avoid mixing with starch-based thickened liquids. prochlorperazine injection 5 mg (COMPAZINE) 0945 ([facility] Hold - Provider: Transfer Provider, Automatic - Reason: Patient not available)0954 ([facility] Unhold - Provider: Transfer Provider, Automatic) 5 mg, intravenous, Every 6 hours PRN, na usea, vomiting, Starting on Fri04/19/19 at 1744 promethazine injection 6.25 mg (PHENERGAN) 0945 ([facility] Hold - Provider: Transfer Provider, Automatic - Reason: Patient not available)0954 ([facility] Unhold - Provider: Transfer Provider, Automatic) 6.25 mg, intravenous, Every 6 hours PRN, nausea, vomiting, Starting on Fri04/19/19 at 1744 sennosides tablet 8.6 mg (SENOKOT) 0945 ([facility] Hold - Provider: Transfer Provider, Automatic - Reason: Patient not available)0954 ([facility] Unhold - Provider: Transfer Provider, Automatic)1029 (Given - Provider: Talya Duffy R.N.) 8.6 mg, oral, As needed, constipation, S tarting on Fri04/19/19 at 0930, Postprocedure (CV) sodium chloride 0.9 % injection 10 mL 0945 ([facility] Hold - Provider: Transfer Provider, Automatic - Reason: Patient not available)0954 ([facility] Unhold - Provider: Transfer Provider, Automatic) 10 mL, intravenous, As needed, line care , Peripheral Intravenous Catheter and Rapid Infusion Catheter, Starting on Fri04/20/19 at 2109, Prior to blood sampling, post blood transfusion or post blood sampling. sodium chloride 0.9 % injection 3 mL 211 5 (Given - Provider: Valerie Jaquez RMary Ann) 0945 ([facility] Hold - Provider: Transfer Prov ider, Automatic - Reason: Patient not available)0954 ([facility] Unhold - Provider: Transfer Provider, Automatic) 3 mL, intravenous, As needed, line care, Peripheral Intravenous Catheter and Rapid Infusion Catheter, Starting on Fri04/20/19 at 2109, Prior to and following infusion and between multiple consecutive infusions. SUMAtriptan tablet 50 mg (IMITREX) (COMPLETED) 1129 (Given - Provider: Jhony Diego REdilmaNEdilma) 0444 (Given - Provider: Candy Deluna RMary Ann) 50 mg, oral, Every 2 hour PRN, migraine, Starting on Fri04/19/19 at 0930, For 2 doses, Postprocedure (CV), SUMAtriptan oral was interchanged for rizatriptan documented in this encounter Additional Health Concerns Assessment Noted Time PHQ-9 Depression Total Score: 11 05/04/2013 4:05 PM CS T documented as of this encounter Care Teams Geriatric Physician Relationship Specialty Start Date End Date Elsewhere, Pcp PCP - General Internal Medicine 07/27/18 documented as of this encounter
--- OUTSIDE RECORDS SUMMARY | 2021-12-27 05:23 | XMS_ITS | Encounter Summary ---
:1955 Author Organization [facility] Address [address] [place] [address] Care Team Providers Name Role Phone Elsewhere, Pcp Primary Care Provider Unavailable Encounter Details Date Type Department Care Team Description 12/04/2018 Clinical Communication Department of [facility] TeresaJuanita post, [facility] [address] [place] [address] [address] [place] [phone] Social History Tobacco Use Types Packs/Day Years [...] or relatives? How often do you attend buddhist or Never 2018 christianity services? Do you belong to any clubs or No 02/26/2019 organizations such as buddhist groups, unions, fraternal or athletic groups, or [...] Encounter - Jhony Moore L.I.C.S.W., M.S.W. - 12/04/2018 11:30 AM CDT Call to Mr. Faustin Dixon, patient's son and emergency contact. Of note, Ramin's correct contact [facility]: [phone]. Alternative number listed ([phone]) is an invalid number. Ramin resides in [place] and would try to make sure I'm available to attend any future appointments with her. I spoke with Mr. Metcalf who identified as his mother's primary family contact, and the best personto be contacted regarding his mother. However, he stated he was unaware I would be calling, and has not been kept updated on his mother's medical condition. He is very interested in being a point of contact regarding his mother's medical condition and assisting her as able. Ramin resides in [place] and would try to make sure I'm available to attend appointments with her. I explained I was requested to call due to concern from [facility] that Ms. Metcalf may not be fully capable of making an informed decision regarding pacemaker surgery being suggested. Ramin states his mother does not have any formal decision maker in place, and does not have any advanced directive or powerof civil rights attorney forms completed. I provided education on health care advanced directives and mailed the [facility] Advanced Health Care Directive materials to Ramin's home to review with his mother. Ramin states patient is currently living at [facility]. He does not say how long she has been there. He states they have been working on transition to a detention facility, however they need to be able to handle her medical condition before she can be transferred. I explained that the staff at [facility] could also provide and review an advanced directive document with her if appropriate. I reviewed that the primary purpose of calling was concern that patient will likely need informal orformal informed decision making support to move forward with a planned surgery. Ramin states he is willing to be the primary family contact and assist his mother with these decisions. He will speak with his mother about formalizing this on paper prior to the upcoming [facility] appointment on 01/20/19. He plans to attend that appointment with her if possible. documented in this encounter Plan of Treatment Not on filedocumented as of this encounter Visit Diagnoses Not on filedocumented in this encounter Additional Health Concerns Assessment Noted Time PHQ-9 Depression Total Score: 11 05/04/2013 4:05 PM CS T documented as of this encounter Care Teams Mortgage Branch Manager Relationship Specialty Start Date End Date Elsewhere, Pcp PCP - General Internal Medicine 07/27/18 documented as of this encounter
--- OUTSIDE RECORDS SUMMARY | 2021-12-27 05:23 | XMS_ITS | Encounter Summary ---
:1955 Author Organization [facility] Address [address] [place] [address] Care Team Providers Name Role Phone Elsewhere, Pcp Primary Care Provider Unavailable Encounter Details Date Type Department Care Team Description 11/25/2018 Hospital Encounter Department of [facility], Abnormal Liver Laboratory Medicine [facility] [place] [address] [place], [place] [address] [facility] [address] [place], [place] [phone] (Work) [phone] Social History Tobacco Use Types Packs/Day Years [...] or relatives? How often do you attend orthodoxy or Never 2018 quaker services? Do you belong to any clubs or No 02/26/2019 organizations such as orthodoxy groups, unions, fraExperifun or athletic groups, or school groups? How [...] as inhaler needed for shortness of breath. famotidine (PEPCID) 10 Take 20 mg by [...] tablet total) by mouth at bedtime. Hyperlipidemia methyl Apply 1 application 0 salicylate-menthol topically every 2 (two) (BENGAY) ointment hours as needed for muscle/joint pain. nitroglycerin Place 0.4 mg under the 0 (NITROSTAT) 0.4 mg SL tongue every 5 (five) tablet minutes as needed for chest pain. SENNOSIDES ORAL Take 1 tablet by mouth 0 as needed. digoxin (LANOXIN) 250 Take 250 mcg by [...] management as per previous homegoing care plan. aspirin [address] Take 81 mg by mouth 0 04/16/2019 tablet daily. topiramate (TOPAMAX) Take 1 tablet (25 mg 0 07/0608/19/2019 25 mg tablet total) by mouth 2 (two) times a day. For headaches. warfarin (COUMADIN) 6 Take 6 mg by mouth. 0 04/21/2019 mg tablet Take as directed per After Visit Summary. Friday, documented as of this encounter Plan of Treatment Not on filedocumented as of this encounter Procedures Procedure Name Priority Date/Time Associated Comments Diagnosis HEPATIC FUNCTION Routine 11/25/2018 11:07 Abnormal Liver Resul ts for this PANEL, S AM CDT Function Test procedure are in the results section. PROTHROMBIN TIME (PT), Routine 11/25/2018 11:07 Abnormal Liver Results for this P AM CDT Function Test procedure are in the results section. CBC WITHOUT Routine 11/25/2018 11:07 Abnormal Liver Results f or this DIFFERENTIAL, B AM CDT Function Test procedure a re in the results section. COMPREHENSIVE Routine 11/25/2018 11:07 Abnormal Liver Results for this METABOLIC PANEL, S/P AM CDT Function Test proced ure are in the results section. documented in this encounter Results (ABNORMAL) CMP (Comprehensive Metabolic Panel) (11/25/2018 11:07 AM CDT) P athologist Signature Potassium, S 4.1 3.6 - 5.2 11/25/2018 mmol/L 12:49 PM CDT Sodium, S 141 135 - 145 11/25/2018 mmol/L 12:49 PM CDT Chloride, S 97 (L) 98 - 107 11/25/2018 mmol/L 12:49 PM CDT Bicarbonate, S 29 22 - 29 11/25/2018 mmol/L 12:49 PM CDT Anion Gap 15 7 - 15 11/25/2018 12:49 PM CDT BUN (Blood Urea 14 6 - 21 11/25/2018 Nitrogen), S mg/dL 12:49 PM CDT Creatinine 0.85 0.59 - 11/25/2018 1.04 mg/dL 12:49 PM CDT eGFR-Non 74 >=60 11/25/2018 Black/ mL/min/BSA 12:49 PM CDT [place] Comment: ----ADDITIONAL INFORMATION---- Estimated GFR calculated using the 2009 CKD_EPI creatinine equation. eGFR-Black/ 86 >=60 mL/min/BSA 2018 12:49 PM CDT Comment: ----ADDITIONAL INFORMATION---- Estimated GFR calculated using the 2009 CKD_EPI creatinine equation. Calcium, Total, S 9.8 8.8 - 10.2 mg/dL 11/25/2018 12:4 9 PM CDT Glucose, S 138 70 - 140 mg/dL 11/25/2018 12:49 PM CDT Protein, Total, S 7.4 6.3 - 7.9 g/dL 11/25/2018 12:49 PM CDT Albumin, S 4.1 3.5 - 5.0 g/dL 11/25/2018 12:49 PM CDT Aspartate Aminotransferase 48 (H) 8 - 43 U/L 11/25/2018 1 2:49 PM CDT (AST), S Alkaline Phosphatase, S 145 (H) 35 - 104 U/L 11/25/2018 12 :49 PM CDT Alanine Aminotransferase 93 (H) 7 - 45 U/L 11/25/2018 12: 49 PM CDT (ALT), S Bilirubin, Total, S 0.4 <=1.2 mg/dL 11/25/2018 12:49 P M CDT Specimen Anatomical Collection Method Collection Time Receive d Time (Source) Location / / Volume Laterality Blood (Blood, 11/25/2018 11:07 11/25/2018 Venous) AM CDT 11:27 AM CDT Porfirio Villegas M.D. LAB BLOOD ADD-ON Performing Organization Address City/State/ZIP Code Phon e Number [facility] - [address] [place] [id number] [facility] (ABNORMAL) Hepatic Function Panel (11/25/2018 11:07 AM CDT) Patholo gist Method Time Signature Bilirubin, Total, S 0.4 <=1.2 11/25/2018 mg/dL 12:49 PM CDT Bilirubin, Direct, S <0.2 0.0 - 0.3 11/25/2018 mg/dL 12:49 PM CDT Aspartate 48 (H) 8 - 43 11/25/2018 Aminotransferase U/L 12:49 PM CDT (AST), S Alanine 93 (H) 7 - 45 11/25/2018 Aminotransferase U/L 12:49 PM CDT (ALT), S Alkaline 145 (H) 35 - 104 11/25/2018 Phosphatase, S U/L 12:49 PM CDT Albumin, S 4.1 3.5 - 5.0 11/25/2018 g/dL 12:49 PM CDT Protein, Total, S 7.4 6.3 - 7.9 11/25/2018 g/dL 12:49 PM CDT Specimen Anatomical Collection Method Collection Time Receive d Time (Source) Location / / Volume Laterality Blood (Blood, 11/25/2018 11:07 11/25/2018 Venous) AM CDT 11:27 AM CDT Porfirio Villegas M.D. LAB BLOOD ADD-ON Performing Organization Address [facility] Phon e Number [facility] - [address] (ABNORMAL) PT (Prothrombin Time) with INR (11/25/2018 11:07 AM CDT) [facility] Method Time Signature Prothrombin 38.4 (H) 9.4 - 12.5 11/25/2018 Time, P sec 11:52 AM CDT INR 3.4 0.9 - 1.1 11/25/2018 11:52 AM CDT Comment: ----ADDITIONAL INFORMATION---- Standard intensity warfarin therapeutic range: 2.0 to 3.0 ?? High intensity warfarin therapeutic rang e: 2.5 to 3.5 Specimen Anatomical Collection Method Collection Time Receive d Time (Source) Location / / Volume Laterality Blood (Blood, 11/25/2018 11:07 11/25/2018 Venous) AM CDT 11:27 AM CDT Porfirio Villegas M.D. LAB BLOOD ADD-ON Performing Organization Address City/[facility] Phon e Number [facility] - [address] (ABNORMAL) CBC without Differential (11/25/2018 11:07 AM CDT) [facility] Method Time Signature Hemoglobin 14.8 11.6 - 11/25/2018 15.0 g/dL 11:56 AM CDT Hematocrit 45.1 (H) 35.5 - 11/25/2018 44.9 % 11:56 AM CDT Erythrocytes 4.92 3.92 - 11/25/2018 5.13 11:56 AM CDT x10(12)/L MCV 91.7 78.2 - 11/25/2018 97.9 fL 11:56 AM CDT RBC Distrib Width 14.0 12.2 - 11/25/2018 16.1 % 11:56 AM CDT Platelet Count 377 (H) 157 - 371 11/25/2018 x10(9)/L 11:56 AM CDT Leukocytes 10.2 (H) 3.4 - 9.6 11/25/2018 x10(9)/L 11:56 AM CDT Specimen Anatomical Collection Method Collection Time Receive d Time (Source) Location / / Volume Laterality Blood (Blood, 11/25/2018 11:07 11/25/2018 Venous) AM CDT 11:27 AM CDT Porfirio Villegas M.D. LAB BLOOD ADD-ON Performing Organization Address City/State/ZIP Code Phon e Number [facility] - [address] [place] [phone] [address] [facility] documented in this encounter Visit Diagnoses Diagnosis Abnormal Liver Function Test documented in this encounter Additional Health Concerns Assessment Noted Time PHQ-9 Depression Total Score: 11 05/04/2013 4:05 PM CS T documented as of this encounter Care Teams Teacher Physically Impaired Relationship Specialty Start Date End Date Elsewhere, Pcp PCP - General Internal Medicine 07/27/18 documented as of this encounter
--- OUTSIDE RECORDS SUMMARY | 2021-12-27 05:23 | XMS_ITS | Encounter Summary ---
:1955 Author Organization [facility] Address [address] [place] [address] Care Team Providers Name Role Phone Elsewhere, Pcp Primary Care Provider Unavailable Reason for Visit Outpatient (Routine) - Closed Specialty Diagnoses / Referred By Referred To Cont act Procedures Contact Gastroenterology and Diagnoses Abnormal Liver Function Test [facility] Hepatology Bess Monroy [address] [place] [address] Referral ID Status Reason Start Date Expiration Date Visits Requ ested Visits Authorized [id number] Closed 10/21/2018 10/21/2019 1 1 Encounter Details Date Type Department Care Team Description 12/11/2018 Comprehensive Visit Division of Lele Villegas M.D. [address] [place] [id number] Abnormal Liver Function Test; Gastroenterology in Joseph Verduzco M.B.B.S., Bess [address] [place] [address] Abnormal Levels Of Other Serum Enzymes [place], [place] [address] [place] [id number] Social History Tobacco Use Types Packs/Day Years [...] or relatives? How often do you attend bahai or Never 2018 anabaptism services? Do you belong to any clubs or No 02/26/2019 organizations such as bahai groups, unions, fraternal or athletic groups, or [...] documented as of this encounter Consult Notes Joseph Verduzco M.B.B.S. - 12/11/2018 9:00 AM CDT Referring Physician: Porfirio Villegas M.D. Primary Care Physician: Primary Care Physician Subjective: Chief Complaint/Reason for Consult: Abnormal liver enzymes HPI: This is a 63-year-old female with a history of heart failure (most likely from tachycardia), atrial flutter and left atrial appendage thrombus and heart failure, type 2 diabetes mellitus, hyperlipidemia who is here for liver enzyme elevation. She has chronic heart failure with the recurrent atrial flutter. She was not commented on the medication the past. She was recently admitted to the [facility] in June 2012 showed atrial flutter. She was then transferred to [facility] for further management. Echocardiogram in on June 2018 showed bilateral atrial enlargement with mobile atrial thrombus in the left atrium. She was then switched Xareltod to Coumadin. Her liver enzyme was normal at that time. However follow-up on blood work in October 20, 2018 showed elevation of liver enzymes: ALT 158, AST 224, alkaline phosphatase 213. Ultrasound show diffuse increased echogenicity consistent with severe diffuse hepatic steatosis. Normal spleen 8.8 cm. Recently, she gained 24 lb over 2 months due to lack of activity. Her repeat echo showed LVEF 55% with RVSP 40 mm of mercury with moderate MR and TR, severe bilateral atrial enlargement. Liver enzymes improved elevated with ALT 93, AST 48, alkaline phos 145, bilirubin 0.4 TTE 10/20/2018: LVEF 55%, RVSP 40 mmHg, moderate MR, Modeerate TR, severe biatrial enlargement. June 29 ALT 25, AST 20, alkaline phos 83, bilirubin 0.7. 10/20/2018 ALT 158 AST 224 alkaline phos 213 bilirubin 0.8 albumin 4.1 11/25/2018 ALT 93 AST 48 alkaline phos 145 bili 0.4 albumin 4.1 Patient Active Problem List Diagnosis Date Noted ??? Acute On Chronic Diastolic (Congestive) Heart Failure (HCC) 07/01/2018 ??? Hyperlipidemia On Treatment 07/01/2018 ??? Thrombus Atrial (HCC) 07/01/2018 ??? Flutter Atrial (HCC) 06/29/2018 ??? Hypertensive Heart Disease With Heart Failure (HCC) 06/29/2018 ??? Posttraumatic Stress Disorder Brief 03/20/2017 ??? Diabetes Mellitus Type 2 Without Complication (HCC) 08/23/2015 ??? Fibromyalgia 06/28/2015 ??? Asthma Mild Persistent (HCC) 06/28/2014 ??? Fatigue Chronic 07/15/2013 ??? Irregular Sleep-Wake Rhythm Disorder 07/15/2013 ??? Contracture Shoulder Joint Right 07/14/2013 ??? Primary Osteoarthritis Acromioclavicular Left 07/14/2013 ??? Pain Musculoskeletal Widespread Chronic 04/30/2013 ??? Unsteadiness Gait Disorder Non Orthopedic 04/30/2013 ??? Constipation 07/15/2012 ??? Apnea Sleep Obstructive 02/06/2012 ??? Gastroesophageal Reflux Disease NOS 02/06/2012 ??? Asthma NOS 01/26/2012 ??? Dyspnea NOS 01/26/2012 ??? Anemia Iron Deficiency 07/27/2009 ??? Hyperlipidemia Mixed 07/27/2009 ??? Other Specified Anxiety Disorders 05/24/2009 ??? Migraine Headache 05/24/2009 Past Medical History: Diagnosis Date ??? Arthritis Rheumatoid (HCC) ??? Asthma NOS (HCC) ??? Cataract ??? Degeneration Macular ??? Diabetes Mellitus NOS (HCC) ??? Fibromyalgia ??? Gastroesophageal Reflux Disease NOS ??? Glaucoma ??? Irritable Bowel Syndrome Without Diarrhea ??? Migraine Headache ??? Osteoporosis ??? Sleep Apnea Past Surgical History: Procedure Laterality Date ??? SECTION ??? THERAPEUTIC cholecystectomy Appendectomy No Known Allergies Prior to Admission medications Medication Sig Start Date End Date Taking? Authorizing Provider albuterol (PROAIR HFA) 90 mcg/actuation inhaler Inhale 1-2 puffs every 4 (four) hours as needed for shortness of breath. 07/06/18 Bella Danielson P.A.-C., M.S. aspirin [address] tablet Take 81 mg by mouth daily. Provider, Historical digoxin (LANOXIN) 250 mcg tablet Take 250 mcg by mouth daily. Provider, Historical DULoxetine (CYMBALTA) [address] capsule Take 1 capsule (30 mg total) by mouth 2 (two) times a day. For Fibromyaligia 07/06/18 Bella Danielson P.A.-C., M.S. famotidine (PEPCID) 20 mg tablet Take 20 mg by mouth daily. Provider, Historical ferrous sulfate 325 mg (65 mg iron) DR tablet Take 1 tablet (65 mg of iron total) by mouth daily. For anemia 07/06/18 Bella Danielson P.A.-C., M.S. fluticasone furoate (ARNUITY ELLIPTA) 100 mcg/actuation diskus inhaler Inhale 1 puff daily. Asthma 07/06/18 Bella Danieslon P.A.-C., M.S. furosemide (LASIX) 20 mg tablet Take 20 mg by mouth daily. Provider, Historical levothyroxine (SYNTHROID, LEVOTHROID) 25 mcg tablet Take 25 mcg by mouth every morning before breakfast. Provider, Historical metFORMIN (GLUCOPHAGE) 500 mg tablet Take 1 tablet (500 mg total) by mouth 2 (two) times a day with meals. For Diabetes Mellitus 07/06/18 Bella Danielson P.A.-C., M.S. methyl salicylate-menthol (BENGAY) ointment Apply 1 application topically every 2 (two) hours as needed for muscle/joint pain. Provider, Historical metoprolol tartrate (LOPRESSOR) 50 mg tablet Take 2 tablets (100 mg total) by mouth 2 (two) times a day. For heart rate control. 07/06/18 Bella Danielson P.A.-C., M.S. nitroglycerin (NITROSTAT) 0.[address] 0.4 mg under the tongue every 5 (five) minutes as needed for chest pain. Provider, Historical rizatriptan (MAXALT) 5 mg tablet Take 1 tablet (5 mg total) by mouth as needed for migraine. 07/06/18Bella Danielson P.A.-C., M.S. SENNOSIDES ORAL Take 1 tablet by mouth daily. Provider, Historical simvastatin (ZOCOR) 20 mg tablet Take 1 tablet (20 mg total) by mouth at bedtime. Hyperlipidemia 07/06/18 Bella Danielson P.A.-C., M.S. topiramate (TOPAMAX) 25 mg tablet Take 1 tablet (25 mg total) by mouth 2 (two) times a day. For headaches. Patient taking differently: Take 25 mg by mouth daily. For headaches. 07/06/18 Bella Danielson P.A.-C., M.S. warfarin (COUMADIN) 5 mg tablet Take 1 tablet (5 mg total) by mouth daily. For left atrial thrombus;INR goal 2.5-3.5. Next INR check on 07/24/18, to take as directed with INR recheck week of 07/27/18, resume management as per previous homegoing care plan. Patient taking differently: Take 5 mg by mouth daily. For left atrial thrombus; INR goal 2.5-3.5. Friday, Friday, Friday, Friday, Friday07/23/18 07/23/19 Reny Gabriel P.A.-C. warfarin (COUMADIN) 6 mg tablet Take 6 mg by mouth. Take as directed per After Visit Summary. Friday, Provider, Historical Family History Problem Relation Age of Onset ??? Hypertension Father ??? Coronary artery disease Father ??? Hyperlipidemia Father Family History of: Details Colon Cancer [] No [] Yes Inflammatory Bowel Disease [] No [] Yes Liver Disease [] No [x] Yes Liver failure, unknown Social History Socioeconomic History ??? Marital status: Single Spouse name: Not on file ??? Number of children: Not on file ??? Years of education: Not on file ??? Highest education level: Not on file Occupational History ??? Not on file Social Needs ??? Financial resource strain: Not on file ??? Food insecurity: Worry: Not on file Inability: Not on file ??? Transportation needs: Medical: Not on file Non-medical: Not on file Tobacco Use ??? Smoking status: Never Smoker ??? Smokeless tobacco: Never Used ??? Tobacco comment: has a roommate that smokes Substance and Sexual Activity ??? Alcohol use: Not Currently Types: 3 Standard drinks or equivalent per week ??? Drug use: Never ??? Sexual activity: Not Currently Partners: Male Lifestyle ??? Physical activity: Days per week: Not on file Minutes per session: Not on file ??? Stress: Not on file Relationships ??? Social connections: Talks on phone: Not on file Gets together: Not on file Attends anabaptism service: Not on file Active member of club or organization: Not on file Attends meetings of clubs or organizations: Not on file Relationship status: Not on file ??? Intimate partner violence: Fear of current or ex partner: Not on file Emotionally abused: Not on file Physically abused: Not on file Forced sexual activity: Not on file Other Topics Concern ??? Not on file Social History Narrative She has 2 sons Tony and Yaya. She lives with 1 son and an ex-boyfriend Occsional drank 2 drinks per week in the past, now quit since 06/2018. . Quit smoke. Review of Systems Pertinent items are noted in HPI. Objective: Physical ExaM There were no vitals taken for this visit. General appearance: alert Head: Normocephalic, without obvious abnormality Eyes: Anicteric sclera. Pupils are equally round and reactive to light. Extraocular movements are intact. Neck: thyroid not enlarged, symmetric, no tenderness/mass/nodules Lungs: clear to auscultation bilaterally Heart: regular rate and rhythm, S1, S2 normal, no murmur, click, rub or gallop Abdomen: soft, non-tender; bowel sounds normal; no masses, no organomegaly Extremities: edema 1+ LABS CBC: Lab Results Component Value Date WBC 10.2 (H) 11/25/2018 HGB 14.8 11/25/2018 HCT 45.1 (H) 11/25/2018 MCV 91.7 11/25/2018 PLT 377 (H) 11/25/2018 Electrolytes: Lab Results Component Value Date NA 141 11/25/2018 K 4.1 11/25/2018 CL 97 (L) 11/25/2018 HCO3 29 11/25/2018 CREATININE 0.85 11/25/2018 EGFR 74 11/25/2018 BUN 14 11/25/2018 ANIONGAP 15 11/25/2018 GLUCOSE 138 11/25/2018 CALCIUM 9.8 11/25/2018 Liver Biochemical Tests: Lab Results Component Value Date ALT 93 (H) 11/25/2018 ALT 93 (H) 11/25/2018 AST 48 (H) 11/25/2018 AST 48 (H) 11/25/2018 ALKPHOS 145 (H) 11/25/2018 ALKPHOS 145 (H) 11/25/2018 BILITOT 0.4 11/25/2018 BILITOT 0.4 11/25/2018 Lab Results Component Value Date INR 3.4 11/25/2018 INR 2.3 10/20/2018 INR 2.6 07/06/2018 PT 38.4 (H) 11/25/2018 PT 25.4 (H) 10/20/2018 PT 28.9 (H) 07/06/2018 Lab Results Component Value Date PROT 7.4 11/25/2018 PROT 7.4 11/25/2018 ALBUMIN 4.1 11/25/2018 ALBUMIN 4.1 11/25/2018 Metabolic Labs/TSH: Lab Results Component Value Date HGBA1C 5.7 07/15/2012 Lab Results Component Value Date CHOL 156 06/29/2018 Lab Results Component Value Date HDL 56 06/29/2018 Lab Results Component Value Date LDLCALC 75 06/29/2018 Lab Results Component Value Date TRIG 127 06/29/2018 Lab Results Component Value Date TSH 3.3 07/02/2018 Autoimmune Liver: ALKM: Lab Results Component Value Date PROT 7.4 11/25/2018 PROT 7.4 11/25/2018 Lab Results Component Value Date PROTEINQUALU 40 (H) 07/01/2018 Alpha 1 antitrypsin phenotype: Ceruloplasmin: Vitamin/Mineral: Zinc: Copper: Selenium: Vitamin A: Vitamin E: Lab Results Component Value Date IRON 89 06/29/2018 TIBC 505 (H) 06/29/2018 I have personally reviewed the Radiology report as noted: USG abdomen 1. Severe diffuse hepatic steatosis. Assessment/Plan: This is a 63-year-old female with a history of heart failure (most likely from tachycardia), atrial flutter and left atrial appendage thrombus and heart failure, type 2 diabetes mellitus, obesity hyperlipidemia who is here for liver enzyme elevation. Her liver enzymes elevation is most likely from heart failure and non alcoholic fatty liver/steatoheaptitis given metabolic syndromes such as type 2 DM, obesity and hyperlipidemia. She recently gained weight for at least 24 lb over 2-3 months that can contribute to her liver enzymes elevation. She is also taking simvastatin that can cause liver enzymes elevation as well. She is less likely to have advanced liver disease based on USG and lab work. - We will complete the work up for acute liver injury - continue heart failure regime - consider to change simvastatin - discuss about diet and exercise to loose weight - cut back carbohydrate diet - avoid soda/carbonated drink -Avoid alcohol intake Total spend time 60 minutes with more than 50% counselling. The patient was seen and evaluated with ABDIEL Fitch Electronically signed by: Julieta GuerrierSEdilma 12/11/2018 9:22 AM Abdiel Lopez M.D. - 12/11/2018 9:00 AM CDT SUBJECTIVE REASON FOR CONSULT Evaluation and management of elevated serum liver tests. HISTORY OF PRESENT ILLNESS I agree with the history and physical exam documented by Dr. Verduzco in her note dated 12/11/18. I agree with the findings and summary of this case described by Dr. Verduzco. ASSESSMENT / PLAN #1 Fatty liver Diffuse hepatic steatosis was seen on ultrasound. In addition, she was started on simvastatin since June after her diagnosis of heart disease. Both of these features can contribute to elevated serum liver tests. We will complete screening evaluation for known causes of chronic liver disease to exclude these as possibilities. In addition to dietary modification to promote weight loss, the level of serum liver enzyme elevation is not to the point where simvastatin would need to be discontinued, but monitoring of liver tests over time is recommended. Other details per Dr. Verduzco's note. CT CT Job ID: [id number]/[id number] documented in this encounter Plan of Treatment Not on filedocumented as of this encounter Results (ABNORMAL) CMP (Comprehensive Metabolic Panel) (12/11/2018 10:44 AM CDT) P athologist Signature Potassium, S 4.1 3.6 - 5.2 12/11/2018 mmol/L 12:17 PM CDT Sodium, S 141 135 - 145 12/11/2018 mmol/L 12:17 PM CDT Chloride, S 100 98 - 107 12/11/2018 mmol/L 12:17 PM CDT Bicarbonate, S 28 22 - 29 12/11/2018 mmol/L 12:17 PM CDT Anion Gap 13 7 - 15 12/11/2018 12:17 PM CDT BUN (Blood Urea 14 6 - 21 12/11/2018 Nitrogen), S mg/dL 12:17 PM CDT Creatinine 0.77 0.59 - 12/11/2018 1.04 mg/dL 12:17 PM CDT eGFR-Non 84 >=60 12/11/2018 Black/ mL/min/BSA 12:17 PM CDT German Comment: ----ADDITIONAL INFORMATION---- Estimated GFR calculated using the 2009 CKD_EPI creatinine equation. eGFR-Black/ >90 >=60 mL/min/BSA 2018 12:17 PM CDT Comment: ----ADDITIONAL INFORMATION---- Estimated GFR calculated using the 2009 CKD_EPI creatinine equation. Calcium, Total, S 9.6 8.8 - 10.2 mg/dL 12/11/2018 12:1 7 PM CDT Glucose, S 163 (H) 70 - 140 mg/dL 12/11/2018 12:17 PM CDT Protein, Total, S 7.0 6.3 - 7.9 g/dL 12/11/2018 12:17 PM CDT Albumin, S 4.1 3.5 - 5.0 g/dL 12/11/2018 12:17 PM CDT Aspartate Aminotransferase 55 (H) 8 - 43 U/L 12/11/2018 1 2:17 PM CDT (AST), S Alkaline Phosphatase, S 137 (H) 35 - 104 U/L 12/11/2018 12 :17 PM CDT Alanine Aminotransferase 106 (H) 7 - 45 U/L 12/11/2018 12: 17 PM CDT (ALT), S Bilirubin, Total, S 0.4 <=1.2 mg/dL 12/11/2018 12:17 P M CDT Specimen Anatomical Collection Method Collection Time Receive d Time (Source) Location / / Volume Laterality Blood (Blood, 12/11/2018 10:44 12/11/2018 Venous) AM CDT 11:05 AM CDT Joseph Pham M.D. LAB BLOOD ADD-ON Performing Organization Address [facility]/ZIP Code Phon e Number [facility] - [address] [address] [facility] Ceruloplasmin (12/11/2018 10:44 AM CDT) P athologist Signature Ceruloplasmin, 31.7 20.0 - 51.0 12/11/2018 S mg/dL 12:35 PM CDT Specimen Anatomical Collection Method Collection Time Receive d Time (Source) Location / / Volume Laterality Blood (Blood, 12/11/2018 10:44 12/11/2018 Venous) AM CDT 11:57 AM CDT Joseph Pham M.D. LAB BLOOD ADD-ON Performing Organization Address City/[facility] Code Phon e Number [facility] - [address] [address] [facility] (ABNORMAL) MELINDA (Antinuclear Antibodies) (12/11/2018 10:44 AM CDT) Analysis Performed At Patho logist Time Signature Antinuclear Ab, 1.2 (H) <=1.0 12/12/2018 S (Negative) 11:21 AM CDT U Comment: Interpretation: Weak Positive ( 1.1-2.9) Specimen Anatomical Collection Method Collection Time Receive d Time (Source) Location / / Volume Laterality Blood (Blood, 12/11/2018 10:44 12/11/2018 2:39 Venous) AM CDT PM CDT Joseph Pham M.D. LAB BLOOD ADD-ON Performing Organization Address City/[facility]/ZIP Code Phon e Number [facility] [address] [place], [place] [address] [facility] Hepatitis A IgG Ab, Serum (12/11/2018 10:44 AM CDT) P athologist Signature Hepatitis A Negative 12/11/2018 IgG Ab, S 3:54 PM CDT Comment: Result indicates no past exposure or imm unity to hepatitis A infection. ?? ----REFERENCE VALUE---- Unvaccinated: Negative Vaccinated: Positive Specimen Anatomical Collection Method Collection Time Receive d Time (Source) Location / / Volume Laterality Blood (Blood, 12/11/2018 10:44 12/11/2018 2:34 Venous) AM CDT PM CDT Joseph Pham M.D. LAB MICROBIOLOGY - B LOOD ORDERABLES Performing Organization Address [facility] Phon e Number [place] [phone] [place] [address] [facility] Smooth Muscle Antibodies (12/11/2018 10:44 AM CDT) athologist Signature Smooth Muscle Negative Negative 12/12/2018 Antibody, S 2:49 PM CDT Comment: ----ADDITIONAL INFORMATION---- This test was developed and its performa nce characteristics determined by [facility] in a manner consistent with CLIA requirements. This test has not been cleared or approved by the [place] d and Drug Administration. Specimen Anatomical Collection Method Collection Time Receive d Time (Source) Location / / Volume Laterality Blood (Blood, 12/11/2018 10:44 12/11/2018 2:40 Venous) AM CDT PM CDT Joseph Pham M.D. LAB BLOOD ADD-ON Performing Organization Address [facility] Phon e Number [address] [place] [address] [facility] HCV Ab Scrn w/Reflex to HCV PCR, Serum (12/11/2018 10:44 AM CDT) P athologist Signature HCV Ab Screen, Negative Negative 12/11/2018 S 3:47 PM CDT Comment: Ixqimv-iz-txyhwg ratio is <1.00 . Specimen Anatomical Collection Method Collection Time Receive d Time (Source) Location / / Volume Laterality Blood (Blood, 12/11/2018 10:44 12/11/2018 2:30 Venous) AM CDT PM CDT Joseph Pham M.D. LAB MICROBIOLOGY - B LOOD ORDERABLES Performing Organization Address City/State/ZIP Code Phon e Number [facility] [address] [place], [place] [address] [facility] HBc Total Ab, Serum (12/11/2018 10:44 AM CDT) athologist Signature HBc Total Ab, Negative Negative 12/11/2018 S 3:47 PM CDT Specimen Anatomical Collection Method Collection Time Receive d Time (Source) Location / / Volume Laterality Blood (Blood, 12/11/2018 10:44 12/11/2018 2:30 Venous) AM CDT PM CDT Joseph Pham M.D. LAB MICROBIOLOGY - B LOOD ORDERABLES Performing Organization Address [facility] Code Phon e Number [address] [place] [address] [facility] Hepatitis B Surface Antigen (12/11/2018 10:44 AM CDT) athologist Signature HBs Antigen, S Negative Negative 12/11/2018 3:29 PM CDT Specimen Anatomical Collection Method Collection Time Receive d Time (Source) Location / / Volume Laterality Blood (Blood, 12/11/2018 10:44 12/11/2018 2:30 Venous) AM CDT PM CDT Joseph Pham M.D. LAB MICROBIOLOGY - B LOOD ORDERABLES Performing Organization Address City/[facility]/ZIP Code Phon e Number [address] [place], [place] [address] [facility] Immunoglobulin M (IgM) (12/11/2018 10:44 AM CDT) [facility] Method Time Signature Immunoglobulin M 74 37 - 286 12/11/2018 (IgM), S mg/dL 5:00 PM CDT Specimen Anatomical Collection Method Collection Time Receive d Time (Source) Location / / Volume Laterality Blood (Blood, 12/11/2018 10:44 12/11/2018 2:37 Venous) AM CDT PM CDT Joseph Pham M.D. LAB BLOOD ADD-ON Performing Organization Address City/[facility]/ZIP Code Phon e Number [address] [place] [facility] Immunoglobulin G (IgG) (12/11/2018 10:44 AM CDT) Patholo gist Method Time Signature Immunoglobulin G 1190 767 - 1590 12/11/2018 (IgG), S mg/dL 4:59 PM CDT Specimen Anatomical Collection Method Collection Time Receive d Time (Source) Location / / Volume Laterality Blood (Blood, 12/11/2018 10:44 12/11/2018 2:37 Venous) AM CDT PM CDT Joseph Pham M.D. LAB BLOOD ADD-ON Performing Organization Address [facility] Phon e Number [facility] [address] [place] [address] [facility] HBs Antibody, Serum (12/11/2018 10:44 AM CDT) P athologist Signature HBs Antibody, Positive 12/11/2018 S 3:47 PM CDT Comment: Patient is considered to be immune to in fection with HBV. ----REFERENCE VALUE---- Unvaccinated: Negative Vaccinated: Positive HBs Antibody, Quantitative, S 66.8 mIU/mL 12/11/2018 3:47 PM CDT Comment: ----REFERENCE VALUE---- Unvaccinated: <5.0 Vaccinated: >=12.0 Specimen Anatomical Collection Method Collection Time Receive d Time (Source) Location / / Volume Laterality Blood (Blood, 12/11/2018 10:44 12/11/2018 2:30 Venous) AM CDT PM CDT Joseph Pham M.D. LAB MICROBIOLOGY - B LOOD ORDERABLES Performing Organization Address [facility] Phon e Number [facility] [address] [place] [address] [facility] (ABNORMAL) Celiac Disease Serology Silt (12/11/2018 10:44 AM CDT) Component Value Ref Test Analysis Performed Pathologis t Range Method Time At Signature Immunoglobulin A 478 (H) 61 - 356 12/11/2018 (IgA), S mg/dL 5:00 PM CDT Celiac Disease Negative serology. Celiac di sease unlikely. However, approximately 10% of 12/11/2018 Interpretation patients with celiac disease are seronegative. Also, patients who are already 10:36 PM adhering to a gluten-free diet may be seronegative. If ildefonso iac disease is CDT highly clinically suspected, consider HLA-DQ typing. Specimen Anatomical Collection Method Collection Time Receive d Time (Source) Location / / Volume Laterality Blood (Blood, 12/11/2018 10:44 12/11/2018 2:37 Venous) AM CDT PM CDT Joseph Pham M.D. LAB BLOOD ADD-ON Performing Organization Address [facility] Phon e Number [address] [place] [address] [facility] Nmcpx-8-Kjyckyagntz Phenotype (12/11/2018 10:44 AM CDT) P athologist Signature Padzp-0-Bxkzops 131 100 - 190 12/11/2018 psin, S mg/dL 3:46 PM CDT Hkuzj-0-Ydrlodf MM bands 12/14/2018 psin Phenotype 3:10 PM CDT Comment: A single M isoform is detected. In the c ontext of a normal zjdwo-2-kfuyvdwaayi concentration, this is consistent with an MM phenotype. Specimen Anatomical Collection Method Collection Time Receive d Time (Source) Location / / Volume Laterality Blood (Blood, 12/11/2018 10:44 12/11/2018 2:37 Venous) AM CDT PM CDT Joseph Pham M.D. LAB BLOOD ADD-ON Performing Organization Address [facility] Phon e Number [address] [place] [address] [facility] Mitochondrial Antibodies (M2) (12/11/2018 10:44 AM CDT) Analysis Performed At Patho logist Time Signature Mitochondrial Ab, <0.1 <0.1 12/11/2018 M2, S (Negative) 5:22 PM CDT U Specimen Anatomical Collection Method Collection Time Receive d Time (Source) Location / / Volume Laterality Blood (Blood, 12/11/2018 10:44 12/11/2018 1:32 Venous) AM CDT PM CDT Joseph Pham M.D. LAB BLOOD ADD-ON Performing Organization Address City/[facility]/ZIP Code Phon e Number [facility] [address] [place] [address] [facility] Iron and Total Iron-Binding Capacity (12/11/2018 10:44 AM CDT) athologist Signature Iron 131 35 - 145 12/11/2018 mcg/dL 11:49 AM CDT Total Iron 310 250 - 400 12/11/2018 Binding Capacity mcg/dL 11:49 AM CDT Percent 42 14 - 50 % 12/11/2018 Saturation 11:49 AM CDT Specimen Anatomical Collection Method Collection Time Receive d Time (Source) Location / / Volume Laterality Blood (Blood, 12/11/2018 10:44 12/11/2018 Venous) AM CDT 11:05 AM CDT Joseph Pham M.D. LAB BLOOD ADD-ON Performing Organization Address City/[facility]/ZIP [facility] Phon e Number [facility] - [address] [place] [address] 05 [facility] Ferritin (12/11/2018 10:44 AM CDT) athologist Signature Ferritin, S 63 11 - 307 12/11/2018 mcg/L 12:15 PM CDT Specimen Anatomical Collection Method Collection Time Receive d Time (Source) Location / / Volume Laterality Blood (Blood, 12/11/2018 10:44 12/11/2018 Venous) AM CDT 11:05 AM CDT Joseph Pham M.D. LAB BLOOD ADD-ON Performing Organization Address City/[facility] Code Phon e Number [facility] - [address] [place] [address] 05 [facility] CBC without Differential (12/11/2018 10:44 AM CDT) athologist Signature Hemoglobin 14.2 11.6 - 12/11/2018 15.0 g/dL 11:19 AM CDT Hematocrit 44.2 35.5 - 12/11/2018 44.9 % 11:19 AM CDT Erythrocytes 4.73 3.92 - 12/11/2018 5.13 11:19 AM CDT x10(12)/L MCV 93.4 78.2 - 12/11/2018 97.9 fL 11:19 AM CDT RBC Distrib Width 13.2 12.2 - 12/11/2018 16.1 % 11:19 AM CDT Platelet Count 361 157 - 371 12/11/2018 x10(9)/L 11:19 AM CDT Leukocytes 8.7 3.4 - 9.6 12/11/2018 x10(9)/L 11:19 AM CDT Specimen Anatomical Collection Method Collection Time Receive d Time (Source) Location / / Volume Laterality Blood (Blood, 12/11/2018 10:44 12/11/2018 Venous) AM CDT 11:05 AM CDT Joseph Pham M.D. LAB BLOOD ADD-ON Performing Organization Address City/State/ZIP Code Phon e Number [facility] - [address] documented in this encounter Visit Diagnoses Diagnosis Abnormal Liver Function Test Abnormal Levels Of Other Serum Enzymes documented in this encounter Additional Health Concerns Assessment Noted Time PHQ-9 Depression Total Score: 11 05/04/2013 4:05 PM CS T documented as of this encounter Care Teams Liner Man Relationship Specialty Start Date End Date Elsewhere, Pcp PCP - General Internal Medicine 07/27/18 documented as of this encounter
--- OUTSIDE RECORDS SUMMARY | 2021-12-27 05:23 | XMS_ITS | Encounter Summary ---
:1955 Author Organization [facility] Address [address] [place] [address] Care Team Providers Name Role Phone Elsewhere, Pcp Primary Care Provider Unavailable Encounter Details Date Type Department Care Team Description 03/09/2019 Clinical Communication Department of [facility], Cardiovascular Medicine [facility] nasim M.B.B.S. [address] [facility] [address] [place] [address] [place], [place] [phone] Social History Tobacco Use Types Packs/Day Years [...] do you attend denominational or Never 2018 judaism services? Do you belong to any clubs [...] Telephone Encounter - Delisa Lyons - 03/09/2019 10:53 AM CST baseline R FOLD ROLL CUTTER documented in this encounter Plan of Treatment Not on filedocumented as of this encounter Visit Diagnoses Not on filedocumented in this encounter Additional Health Concerns Assessment Noted Time PHQ-9 Depression Total Score: 11 05/04/2013 4:05 PM CS T documented as of this encounter Care Teams Pound Keeper Relationship Specialty Start Date End Date Elsewhere, Pcp PCP - General Internal Medicine 07/27/18 documented as of this encounter
--- OUTSIDE RECORDS SUMMARY | 2021-12-27 05:23 | XMS_ITS | Encounter Summary ---
:[address] [facility] Address [address] [place] [address] Care Team Providers Name Role Phone Elsewhere, Pcp Primary Care Provider Unavailable Encounter Details Date Type Department Care Team Description 12/01/2018 Clinical Communication Department of [facility] Charlotte TeresaJuanita post, [facility] [address] [place] [address] [address] [place] [phone] Social History Tobacco Use Types Packs/Day Years [...] do you attend congregational or Never 2018 hoahaoism services? Do you belong to any clubs [...] Encounter - Jhony Moore L.I.C.S.W., M.S.W. - 12/01/2018 10:59 AM CDT Call to Ms. Metcalf ([phone]) following up to last week's missed phone appointment. Left message requesting call back to [phone]. [Based on appointment referral and chart notes, intent is to clarify if Ms. Metcalf has Health CareDirective documents or formal assigned decision maker to assist as needed in consenting for surgery and other medical decision making.] documented in this encounter Plan of Treatment Not on filedocumented as of this encounter Visit Diagnoses Not on filedocumented in this encounter Additional Health Concerns Assessment Noted Time PHQ-9 Depression Total Score: 11 05/04/2013 4:05 PM CS T documented as of this encounter Care Teams Driver Examiner Relationship Specialty Start Date End Date Elsewhere, Pcp PCP - General Internal Medicine 07/27/18 documented as of this encounter
--- OUTSIDE RECORDS SUMMARY | 2021-12-27 05:23 | XMS_ITS | Encounter Summary ---
:[address] [facility] Address [address] [place] [address] Care Team Providers Name Role Phone Elsewhere, Pcp Primary Care Provider Unavailable Encounter Details Date Type Department Care Team Description 12/11/2018 Hospital Encounter Department of Joseph Verduzco Abnormal Liver Function Test; Laboratory Medicine Becki Caballero, Abnormal Levels Of Other Serum Enzymes and Pathology, Luan Pham. [address], [address] [place] [phone] [phone] Social History Tobacco Use Types Packs/Day Years [...] do you attend congregational or Never 2018 rastafarian services? Do you belong to any clubs [...] management as per previous homegoing care plan. polyethylene glycol Take 1 packet (17 g 60 packet 11 019 12/11/2019 (MIRALAX) 17 gram total) by mouth 2 (two) powder packet times a day. Dissolve each 17 g dose in 240 mLs (8 ounces) of beverage. aspirin [address] Take 81 mg [...] Procedure Name Priority Date/Time Associated Comments Diagnosis HCV AB SCRN W/REFLEX TO Routine 12/11/2018 10:44 Abnormal Live r Results for this HCV PCR, S AM CDT Function Test procedure are in the results section. CELIAC DISEASE SEROLOGY Routine 12/11/2018 10:44 Abnormal Live r Results for this CASCADE, S AM CDT Function Test procedure are in the results section. [id number] Routine 12/11/2018 10:44 Abnormal Liver Re sults for this PHENOTYPE, S AM CDT Function Test procedure are in the results section. IRON AND TOT Routine 12/11/2018 10:44 Abnormal Levels Of Resul ts for this IRON-BINDING CAPACITY, AM CDT Other Serum proce dure are in S/P Enzymes the results Abnormal Liver section. Function Test HEPATITIS A IGG AB S Routine 12/11/2018 10:44 Abnormal Liver R esults for this AM CDT Function Test procedure are in the results section. TISSUE TRANSGLUTAMINASE Routine 12/11/2018 10:44 Results for this (TTG) AB, IGA, S AM CDT procedure a re in the results section. CERULOPLASMIN, S Routine 12/11/2018 10:44 Abnormal Liver Resul ts for this AM CDT Function Test procedure are in the results section. HBC TOTAL AB, SERUM Routine 12/11/2018 10:44 Abnormal Liver Re sults for this AM CDT Function Test procedure are in the results section. MITOCHONDRIAL ABS (M2), Routine 12/11/2018 10:44 Abnormal Live r Results for this S AM CDT Function Test procedure are in the results section. SMOOTH MUSCLE ABS, S Routine 12/11/2018 10:44 Abnormal Liver R esults for this AM CDT Function Test procedure are in the results section. HBS ANTIBODY, SERUM Routine 12/11/2018 10:44 Abnormal Liver Re sults for this AM CDT Function Test procedure are in the results section. HEPATITIS B SURFACE Routine 12/11/2018 10:44 Abnormal Liver Re sults for this ANTIGEN AM CDT Function Test procedure are in the results section. CBC WITHOUT Routine 12/11/2018 10:44 Abnormal Liver Results f or this DIFFERENTIAL, B AM CDT Function Test procedure a re in the results section. ANTINUCLEAR ABS (MELINDA), S Routine 12/11/2018 10:44 Abnormal Sarita er Results for this AM CDT Function Test procedure are in the results section. IMMUNOGLOBULIN M (IGM), Routine 12/11/2018 10:44 Abnormal Live r Results for this S AM CDT Function Test procedure are in the results section. IMMUNOGLOBULIN G (IGG), Routine 12/11/2018 10:44 Abnormal Live r Results for this S AM CDT Function Test procedure are in the results section. FERRITIN, S Routine 12/11/2018 10:44 Abnormal Levels Of Resul ts for this AM CDT Other Serum procedure are i n Enzymes the results Abnormal Liver section. Function Test COMPREHENSIVE METABOLIC Routine 12/11/2018 10:44 Abnormal Live r Results for this PANEL, S/P AM CDT Function Test procedure are in the results section. documented in this encounter Results tTG (Tissue Transglutaminase), Antibody, IgA (12/11/2018 10:44 AM CDT) [facility] Method Time Signature Tissue <1.2 <4.0 12/11/2018 Transglutaminase Ab, (Negative 10:12 PM CDT IgA, S ) U/mL Specimen Anatomical Collection Method Collection Time Receive d Time (Source) Location / / Volume Laterality Blood 12/11/2018 10:44 12/11/2018 5:00 AM CDT PM CDT Joseph Pham M.D. LAB BLOOD ADD-ON Performing Organization Address City/State/ZIP Code Phon e Number [facility] [address] [place], [place] [address] [facility] (ABNORMAL) CMP (Comprehensive Metabolic Panel) (12/11/2018 10:44 [...] >=60 12/11/2018 Black/ mL/min/BSA 12:17 PM CDT [place] Comment: ----ADDITIONAL INFORMATION---- Estimated GFR calculated using [...] M.D. LAB BLOOD ADD-ON Performing Organization Address City/[facility] Phon e Number [facility] - [address] [place] [address] [facility] Ceruloplasmin (12/11/2018 10:44 AM CDT) P athologist Signature Ceruloplasmin, 31.7 20.0 - 51.0 12/11/2018 S mg/dL 12:35 PM CDT Specimen Anatomical Collection Method Collection Time Receive d Time (Source) Location / / Volume Laterality Blood (Blood, 12/11/2018 10:44 12/11/2018 Venous) AM CDT 11:57 AM CDT Joseph Pham M.D. LAB BLOOD ADD-ON Performing Organization Address [facility] Phon e Number [facility] - [address] (ABNORMAL) MELINDA (Antinuclear Antibodies) (12/11/2018 10:44 AM [...] M.D. LAB BLOOD ADD-ON Performing Organization Address City/[facility]/ZIP Code Phon e Number [facility] [address] [place] [address] [facility] Hepatitis A IgG Ab, Serum (12/11/2018 10:44 AM CDT) athologist Signature Hepatitis A Negative 12/11/2018 IgG [...] - B LOOD ORDERABLES Performing Organization Address [facility] Phon e Number [address] [place] [address] 05 [facility] Smooth Muscle Antibodies (12/11/2018 10:44 AM CDT) athologist [facility] Smooth Muscle Negative Negative 12/12/2018 Antibody, S 2:49 PM CDT Comment: ----ADDITIONAL INFORMATION---- This test was developed and its performa nce characteristics determined by [facility] in a manner consistent with CLIA requirements. This test has not been cleared or approved by the [place] d and Drug Administration. Specimen Anatomical Collection Method Collection Time Receive d Time (Source) Location / / Volume Laterality Blood (Blood, 12/11/2018 10:44 12/11/2018 2:40 Venous) AM CDT PM CDT Joseph Pham M.D. LAB BLOOD ADD-ON Performing Organization Address City/[facility] Phon e Number [facility] [address] [place] [address] [facility] HCV Ab Scrn w/Reflex to HCV PCR, Serum (12/11/2018 10:44 AM CDT) athologist [facility] HCV Ab Screen, Negative Negative 12/11/2018 S 3:47 PM CDT Comment: Tbmaib-pf-lmzswz ratio is <1.00 . Specimen Anatomical Collection Method Collection Time Receive d Time (Source) Location / / Volume Laterality Blood (Blood, 12/11/2018 10:44 12/11/2018 2:30 Venous) AM CDT PM CDT Joseph Candida Pham M.D. LAB MICROBIOLOGY - B LOOD ORDERABLES Performing Organization Address [facility] Phon e Number [address] [place] [address] [facility] HBc Total Ab, Serum (12/11/2018 10:44 AM CDT) P athologist Signature HBc Total Ab, Negative Negative 12/11/2018 S 3:47 PM CDT Specimen Anatomical Collection Method Collection Time Receive d Time (Source) Location / / Volume Laterality Blood (Blood, 12/11/2018 10:44 12/11/2018 2:30 Venous) AM CDT PM CDT Joseph Tirado Becki Pham M.D. LAB MICROBIOLOGY - B LOOD ORDERABLES Performing Organization Address [facility] Phon e Number [address] [place] [address] [facility] Hepatitis B Surface Antigen (12/11/2018 10:44 AM CDT) P athologist Signature HBs Antigen, S Negative Negative 12/11/2018 3:29 PM CDT Specimen Anatomical Collection Method Collection Time Receive d Time (Source) Location / / Volume Laterality Blood (Blood, 12/11/2018 10:44 12/11/2018 2:30 Venous) AM CDT PM CDT Joseph Pham M.D. LAB MICROBIOLOGY - B LOOD ORDERABLES Performing Organization Address [facility] Phon e Number [address] [place] [address] [facility] Immunoglobulin M (IgM) (12/11/2018 10:44 AM CDT) [facility] gist Method Time Signature Immunoglobulin M 74 37 - 286 12/11/2018 (IgM), S mg/dL 5:00 PM CDT Specimen Anatomical Collection Method Collection Time Receive d Time (Source) Location / / Volume Laterality Blood (Blood, 12/11/2018 10:44 12/11/2018 2:37 Venous) AM CDT PM CDT Joseph Pham M.D. LAB BLOOD ADD-ON Performing Organization Address [facility] Code Phon e Number [address] [place] [address] [facility] Immunoglobulin G (IgG) (12/11/2018 10:44 AM CDT) Patholo gist Method Time Signature Immunoglobulin G 1190 767 - 1590 12/11/2018 (IgG), S mg/dL 4:59 PM CDT Specimen Anatomical Collection Method Collection Time Receive d Time (Source) Location / / Volume Laterality Blood (Blood, 12/11/2018 10:44 12/11/2018 2:37 Venous) AM CDT PM CDT Joseph Pham M.D. LAB BLOOD ADD-ON Performing Organization Address [facility] Phon e Number [address] [place] [address] [facility] HBs Antibody, Serum (12/11/2018 10:44 AM [...] - B LOOD ORDERABLES Performing Organization Address [facility] Phon e Number [address] [place] [address] [facility] (ABNORMAL) Celiac Disease Serology Dixon (12/11/2018 10:44 AM CDT) Component Value Ref [...] M.D. LAB BLOOD ADD-ON Performing Organization Address [facility] Phon e Number [address] [place] [address] [facility] Zfnmb-5-Howuczbxjtr Phenotype (12/11/2018 10:44 AM CDT) P athologist Signature Pregq-2-Xwjmvia 131 100 - 190 12/11/2018 psin, S mg/dL 3:46 PM CDT Dyyap-6-Kvcniol MM bands 12/14/2018 psin Phenotype 3:10 PM CDT Comment: A single M isoform is detected. In the c ontext of a normal rfypj-8-vrxglbdnntj concentration, this is consistent with an MM phenotype. Specimen Anatomical Collection Method Collection Time Receive d Time (Source) Location / / Volume Laterality Blood (Blood, 12/11/2018 10:44 12/11/2018 2:37 Venous) AM CDT PM CDT Joseph Pham M.D. LAB BLOOD ADD-ON Performing Organization Address City/[facility] Phon e Number [address] [place] [address] [facility] Mitochondrial Antibodies (M2) (12/11/2018 [...] M.D. LAB BLOOD ADD-ON Performing Organization Address City/[facility]/ZIP Code Phon e Number [facility] [address] [place], [place] [address] [facility] Iron and Total Iron-Binding [...] City/State/ZIP Code Phon e Number [facility] - [address] [place] [address] [facility] Ferritin (12/11/2018 10:44 AM CDT) athologist Signature Ferritin, S 63 11 - 307 12/11/2018 mcg/L 12:15 PM CDT Specimen Anatomical Collection Method Collection Time Receive d Time (Source) Location / / Volume Laterality Blood (Blood, 12/11/2018 10:44 12/11/2018 Venous) AM CDT 11:05 AM CDT Joseph Pham M.D. LAB BLOOD ADD-ON Performing Organization Address City/[facility]/ZIP Code Phon e Number [facility] - [address] [place] [address] [facility] CBC without Differential (12/11/2018 10:44 [...] Venous) AM CDT 11:05 AM CDT Joseph hPam M.D. LAB BLOOD ADD-ON Performing Organization Address City/State/ZIP Code Phon e Number [facility] - [address] [place] [address] [facility] documented in this encounter Visit Diagnoses Diagnosis Abnormal Liver Function Test Abnormal Levels Of Other Serum Enzymes documented in this encounter Additional Health Concerns Assessment Noted Time PHQ-9 Depression Total Score: 11 05/04/2013 4:05 PM CS T documented as of this encounter Care Teams Supervisor Dog License Officer Relationship Specialty Start Date End Date Elsewhere, Pcp PCP - General Internal Medicine 07/27/18 documented as of this encounter
--- OUTSIDE RECORDS SUMMARY | 2021-12-27 05:23 | XMS_ITS | Encounter Summary ---
:1955 Author Organization [facility] Address [address] [place] [address] Care Team Providers Name Role Phone Elsewhere, Pcp Primary Care Provider Unavailable Encounter Details Date Type Department Care Team Description 03/01/2019 Clinical Communication Department of [facility] Cardiovascular Medicine Porfirio [facility] nasim Kellogg [address] [facility] [address] [place] [address] [place], [place] [phone] Social History Tobacco Use Types Packs/Day [...] or relatives? How often do you attend worship or Never 2018 sabianism services? Do you belong to any clubs or No 02/26/2019 organizations such as worship groups, unions, fraternal or athletic groups, or [...] Telephone Encounter - Porfirio Villegas M.D. - 03/02/2019 6:33 AM ACID TESTER Our territory sales executive, Rosemarie Quezada, is already working on this. Thank you TESTER Telephone Encounter - Delisa Lyons - 03/01/2019 2:[address] Villegas, Patient had called and said that you were possibly looking at an ablation for her. Is this somethingwe should start to schedule? Thank you. PASS: Call [place] [phone] child care team lead for patient - leave vm if no answer TESTER documented in this encounter Plan of Treatment Not on filedocumented as of this encounter Visit Diagnoses Not on filedocumented in this encounter Additional Health Concerns Assessment Noted Time PHQ-9 Depression Total Score: 11 05/04/2013 4:05 PM CS T documented as of this encounter Care Teams Cold Rolling Supervisor Relationship Specialty Start Date End Date Elsewhere, Pcp PCP - General Internal Medicine 07/27/18 documented as of this encounter
--- OUTSIDE RECORDS SUMMARY | 2021-12-27 05:23 | XMS_ITS | Encounter Summary ---
:1955 Author Organization [facility] Address [address] [place] [address] Care Team Providers Name Role Phone Elsewhere, Pcp Primary Care Provider Unavailable Encounter Details Date Type Department Care Team Description 11/26/2018 Clinical Communication [facility] [address] [place] [address] [address] [place] [phone] Social History Tobacco Use Types Packs/Day Years [...] or relatives? How often do you attend evangelical or Never 2018 jain services? Do you belong to any clubs or No 02/26/2019 organizations such as evangelical groups, unions, fraternal or athletic groups, or [...] documented as of this encounter Care Teams Civil Litigation Attorney Relationship Specialty Start Date End Date Elsewhere, Pcp PCP - General Internal Medicine 07/27/18 documented as of this encounter
--- OUTSIDE RECORDS SUMMARY | 2021-12-27 05:23 | XMS_ITS | Encounter Summary ---
:[address] [facility] Address [address] [place] [address] Care Team Providers Name Role Phone Elsewhere, Pcp Primary Care Provider Unavailable Encounter Details Date Type Department Care Team Description 01/19/2019 Hospital Encounter Department of Siontis, Thrombus Atrial (HCC); Cardiovascular Diseases Porfirio, Flu tter Atrial (HCC) in [facility] nasim Kellogg [address] [facility] [address] [place] [phone] Social History Tobacco Use Types Packs/Day Years [...] do you attend uatsdin or Never 2018 religion services? Do you [...] Sign Reading Time Taken Comments Blood Pressure 138/87 01/19/2019 3:15 PM CDT Pulse 81 01/19/2019 3:24 PM CDT Temperature - - Respiratory Rate 15 01/19/2019 3:24 PM CDT Oxygen Saturation 93% 01/19/2019 3:24 PM CDT Inhaled Oxygen Concentration - - Weight - - Height - - Body Mass Index - - documented in this encounter Medications at Time [...] tartrate Take 2 tablets (100 mg 0 /07/201804/21/2019 (LOPRESSOR) 50 mg total) by mouth 2 [...] Summary. Friday, documented as of this encounter H&P Notes Leopoldo Shaffer Admin Closure - 01/19/2019 1:00 PM CDT Administrative Closure: This record is being filed as incomplete for a missing H&P. Health Information Management Services ER LIFT OPERATOR documented in this encounter Plan of Treatment Not on filedocumented as of this encounter Procedures Procedure Name Priority Date/Time Associated Diagnosis Comme nts (MICHAEL) 2D WITH Routine 01/19/2019 2:53 PM Thrombus Atrial Resul ts for this COLOR, LIMITED CDT (HCC) procedure are in DOPPLER AND Flutter Atrial (HCC) the res ults CONTRAST section. documented in this encounter Results (MICHAEL) 2D WITH COLOR, LIMITED DOPPLER AND CONTRAST (01/19/2019 2:53 PM CDT) P athologist Signature Ejection 55 MC CV EIMS Fraction Anatomical Region Laterality Modality Echocardiography Specimen (Source) Anatomical Collection Method Collection Time Re ceived Time Location / / Volume Laterality 01/19/2019 1:10 PM CDT Impressions 01/19/2019 3:37 PM CDT PRE-SEDATION ASSESSMENT & CONSENT ??The goals, risks and alternatives to moderate sedation and the transesophageal echo were explained to the patient, questions were answered and consent was given to proceed. ??The physician review ed the patient's history, medication list, allergies, and review of systems and also performed a pertinent examination including a heart, airway and lung assessment. ??Mallampati Assessment : As documented in the RN pre-procedure assessment. Sedation plan: Transesophageal echo - mo derate sedation. ??ASA physical status score: Class III. The patient's identity and all needed e quipment were confirmed and a final confirmatory pause was performed by the team immediately pr ior to start. ??Intravenous Definity ultrasound enhancement agent was administered to as sess for cardiac mass/thrombus. ??5.0 ml of diluted Definity contrast administered and 5.0 m l discarded. ??LEFT VENTRICLE: ??Normal left ventricular chamber size. ??Estimated left ventricul ar ejection fraction 55 % with osia-mg-qxmf variability. RIGHT VENTRICLE: ??Mild right ventricul ar enlargement. ??Mild decrease in right ventricular systolic function. ??ATRIA: ??Severe lef t atrial enlargement. ??Spontaneous echo contrast identified in the left atrial appendage and left atrium. 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 ??No left atrial a ppendage thrombus, confirmed with echocontrast administration. ??Left atrial appendage emptying velocity 33 cm/sec. ??Right atrial enlargement. CARDIAC VALVES: ??Trileaflet aortic valv e. ??Thickened aortic valve. ??Moderate aortic valve regurgitation. ??Thickened mitral valve. ??Mild-moderate mitral valve regurgitation. ??Mildly thickened tricuspid valve. ??Mild tricus pid valve regurgitation. ??OTHER ECHO FINDINGS: ??Tiny pericardial effusion. ??PROCEDURE ??Krause sesophageal echocardiogram performed at the request of the primary guest services director. ??Adult probe inserted without difficulty. ??Procedure performed with appropriate level of sedation. ??A trained independent observer assisted with monitoring the patient's level of consciousness and physiologic status throughout the procedure, see nursing documentation. ??Physician bianca curtis for procedural medications and patient discharge when DC criteria met. ??The patient geno rated the sedation and procedure well and was released awake, alert, and in good condition. ??S ee Sedation Narrator or other pertinent record in [facility] for additional procedure and sedation in formation. ??Transesophageal echocardiogram completed without complications. For the complete report, see the Order-L evel Documents below. See PDF For Result Narrative 01/19/2019 3:37 PM CDT For the complete report, see the Order-L evel Documents below. Final Impressions 1. GOAL DIRECTED MICHAEL TO ASSESS LEFT ATRI AL APPENDAGE 2. Dilated and hypokinetic left atrial a ppendage with dense spontaneous echo contrast. No left atrial appendage thrombus. 3. 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 4. Estimated left ventricular ejection f raction 55 % with tczy-uf-azrk variability. 5. Tiny pericardial effusion around the URSULA/transverse sinus and posteriorly. 6. Compared to the report of 10/20/2018 the following changes have occurred: the linear echodensity within the URSULA was also seen in that study and appeared unchanged to today; there is a denser spontaneous echocontrast see n at the tip of the URSULA on today's study, although no URSULA thrombus seen (confirmed by echocont rast imaging); side by side comparison of images performed. 7. Please refer to the report of previou s MICHAEL from July 01 2018 and October 20 2018 for other details of resting finding. Procedure Note Rhina Lucas M.B.B.S., Ph.D. - For the complete report, see the Order-L evel Documents below. Final Impressions 1. GOAL DIRECTED MICHAEL TO ASSESS LEFT ATRI AL APPENDAGE 2. Dilated and hypokinetic left atrial a ppendage with dense spontaneous echo contrast. No left atrial appendage thrombus. 3. 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 4. Estimated left ventricular ejection f raction 55 % with tkkw-nw-uamo variability. 5. Tiny pericardial effusion around the URSULA/transverse sinus and posteriorly. 6. Compared to the report of 10/20/2018 the following changes have occurred: the linear echodensity within the URSULA was also seen in that study and appeared unchanged to today; there is a denser spontaneous echocontrast see n at the tip of the URSULA on today's study, although no URSULA thrombus seen (confirmed by echocont rast imaging); side by side comparison of images performed. 7. Please refer to the report of previou s MICHAEL from July 01 2018 and October 20 2018 for other details of resting finding. Findings PRE-SEDATION ASSESSMENT & CONSENT The go als, risks and alternatives to moderate sedation and the transesophageal echo were explained to the patient, questions were answered and consent was given to proceed. The physician reviewed the patient's history, medication list, allergies, and review of systems and also performed a pertinent examination including a heart, airway and lung assessment. Mallampati Assessment: As documented in the RN pre-procedure assessment. Sedation plan: Transesophageal echo - mo derate sedation. ASA physical status score: Class III. The patient's identity and all needed e quipment were confirmed and a final confirmatory pause was performed by the team immediately pr ior to start. Intravenous Definity ultrasound enhancement agent was administered to as sess for cardiac mass/thrombus. 5.0 ml of diluted Definity contrast administered and 5.0 m l discarded. LEFT VENTRICLE: Normal left ventricular chamber size. Estimated left ventricular ejection fraction 55 % with tyyc-wg-rugs variability. RIGHT VENTRICLE: Mild right ventricular enlargement. Mild decrease in right ventricular systolic function. ATRIA: Severe left at rial enlargement. Spontaneous echo contrast identified in the left atrial appendage and left atrium. 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 No left atrial reginaldo endage thrombus, confirmed with echocontrast administration. Left atrial appendage em ptying velocity 33 cm/sec. Right atrial enlargement. CARDIAC VALVES: Trileaflet aortic valve. Thickened aortic valve. Moderate aortic valve regurgitation. Thickened mitral valve. M ild-moderate mitral valve regurgitation. Mildly thickened tricuspid valve. Mild tricuspi d valve regurgitation. OTHER ECHO FINDINGS: Tiny pericardial effusion. PROCEDURE Transeso phageal echocardiogram performed at the request of the primary guest services director. Adult pr obe inserted without difficulty. Procedure performed with appropriate level of sedation. A maria r mcpherson independent observer assisted with monitoring the patient's level of consciousness and physiologic status throughout the procedure, see nursing documentation. Physician signatu re for procedural medications and patient discharge when DC criteria met. The patient tolera carmine the sedation and procedure well and was released awake, alert, and in good condition. See Sedation Narrator or other pertinent record in Epic for additional procedure and sedation in formation. Transesophageal echocardiogram completed without complications. For the complete report, see the Order-L evel Documents below. See PDF For Result Porfirio Villegas M.D. CV ECHO PROCEDURES documented in this encounter Visit Diagnoses Diagnosis Thrombus Atrial (HCC) Flutter Atrial (HCC) documented in this encounter Administered Medications Inactive Administered Medications - up to 3 most recent administrations Medication Order MAR Action Action Date Dose Rate Site fentaNYL injection (SUBLIMAZE) Given 01/19/2019 2:18 PM CDT 25 mcg Code/trauma/sedation medication, Starting on Fri01/19/19 at 1418 Given 01/19/2019 2:15 PM CDT 50 mcg lidocaine 5 % ointment 1 application Given 01/19/2019 1:58 P M CDT 1 application (XYLOCAINE) 1 application, mouth/throat, As needed, mild pain or score 1-3 of 10, See protocol, Starting on Fri01/19/19 at 1313, MAX of 20 g of ointment/day midazolam (PF) injection (VERSED) Given 01/19/2019 2:18 PM CDT 2 mg Code/trauma/sedation medication, Starting on Fri01/19/19 at 1418 Given 01/19/2019 2:15 PM CDT 2 mg documented in this encounter Additional Health Concerns Assessment Noted Time PHQ-9 Depression Total Score: 11 05/04/2013 4:05 PM CS T documented as of this encounter Care Teams Principal Automation Engineer Relationship Specialty Start Date End Date Elsewhere, Pcp PCP - General Internal Medicine 07/27/18 documented as of this encounter
--- OUTSIDE RECORDS SUMMARY | 2021-12-27 05:23 | XMS_ITS | Encounter Summary ---
:1955 Author Organization [facility] Address [address] [place] [address] Care Team Providers Name Role Phone Elsewhere, Pcp Primary Care Provider Unavailable Reason for Referral Outpatient (Routine) - Closed Specialty Diagnoses / Procedures Referred By Contact Refer red To Contact Diagnoses Flutter Atrial [facility]HCC) [facility] 12 Lead M.DEdilma [address] [place], [place] [phone] Referral ID Status Reason Start Date Expiration Date Visits Requ ested Visits Authorized [id number] Closed 01/21/2019 01/21/2020 1 1 Reason for Visit Outpatient (Routine) - Closed Specialty Diagnoses / Procedures Referred By Contact Refer steven To Contact [facility] Bess Monroy [address] [place] [address] Referral ID Status Reason Start Date Expiration Date Visits Requ ested Visits Authorized [id number] Closed 11/25/2018 11/25/2019 1 1 Encounter Details Date Type Department Care Team Description 01/20/2019 Office Visit Department of Nelly, Flutter Atrial (HCC) Cardiovascular Medicine Porfirio (Pr imary Dx) in [facility] nasim Kellogg [address] [facility] [address] [place] [address] [place], [place] [phone] Social History Tobacco Use Types Packs/Day Years [...] or relatives? How often do you attend tenriism or Never 2018 orthodox services? Do you belong to any clubs or No 02/26/2019 organizations such as tenriism groups, unions, fraternal or athletic groups, or [...] Sign Reading Time Taken Comments Blood Pressure 144/108 01/20/2019 8:35 AM CDT Pulse 86 01/20/2019 8:35 AM CDT Temperature - - Respiratory Rate - - Oxygen Saturation - - Inhaled Oxygen Concentration - - Weight 93.4 kg (205 lb 14.6 oz) 01/20/2019 8:35 AM CDT Height 166 cm (5' 5.35) 01/20/2019 8:35 AM CDT Body Mass Index 33.89 01/20/2019 8:35 AM CDT documented in this encounter Progress Notes Porfirio Villegas M.D. - 01/20/2019 8:30 AM CDT SUBJECTIVE HISTORY OF PRESENT ILLNESS We saw Ms. Metcalf in followup [facility]. She completed the MICHAEL yesterday that did notshow any left atrial thrombus. The previously seen opacity in the left atrial appendage is likely a ridge of tissue that has been present but no clear thrombus even with the use of echo contrast. She was in atrial fibrillation/flutter during the MICHAEL. She is also in atrial fibrillation/flutter today. She remains quite symptomatic with a significant exertional intolerance. She is dyspneic with even small distance walking and climbing a flight of stairs. She denies orthopnea, PND, lower extremity edema. She has very frequent palpitations all the time. No syncope or presyncope. Current Outpatient Medications: ??? albuterol [...] Visit Summary. Friday, , Disp: , Rfl: PHYSICAL EXAMINATION Vital Signs: BP (!) 144/108 (BP Location: Left arm, Patient Position: Sitting) Pulse 86 Ht 166 cm Wt 93.4 kg BMI 33.89 kg/m?? General: Alert, oriented, disheveled female older than stated age. Quite emotional today. Heart: Irregularly irregular. Mildly tachycardic. Normal S1, S2. No murmurs appreciated. Lungs: Clear to auscultation bilaterally. Extremities: 1+ pretibial edema, well perfused. ASSESSMENT / PLAN #1 Atrial fibrillation and flutter, paroxysmal #2 Tachycardia-induced cardiomyopathy, resolved #3 Mitral regurgitation #4 Resolved left atrial appendage thrombus #5 Left atrial enlargement #6 Hypertension #7 Hyperlipidemia #8 Type 2 diabetes #9 CHAPITO, incompletely treated #10 Diagnosis of personality disorder and history of head injury as well as depression and anxiety #11 Currently living in a long-term facility under direct supervision Ms. Metcalf continues to have issues with paroxysmal atrial flutter/fibrillation. She has also beenknown to have sinus node dysfunction in the past with rates in the 40s and 50s. On yesterday's MICHAEL the left atrial thrombus was convincingly absent. Therefore, we can now discuss rhythm control approaches given her symptomatic arrhythmia. We discussed the option of antiarrhythmic medications. She has reasonable renal function for dofetilide or sotalol. Amiodarone may not be an ideal option at this point given her liver function abnormalities. Whether she will be able to reliably take long-term antiarrhythmics is not clear given her living situation and the effectiveness of such an approach is unclear as well. We also discussed the possibility of catheter-based approach including PVI and CTI. It isnot clear whether she has complete understanding of the implications, risks and benefits as well as r ationale and expectations from the procedure. We had previously tried to engage her son, Yaya, who lives in [place]. Please see social secretary documentation dated November 24, 2018. Unfortunately, Yaya was not able to make it to the appointment today. At this point, it appears that she is her own decision-maker without anyone formally appointed as a power of assistant county attorney. However, she identifies her son, Yaya, as the main person who she would like to consult with and assist her in making important or complex decisions regarding her healthcare. Therefore, we would like to see her in followup in the next few weeks together with Yaya to discuss the issues of potential ablation versus antiarrhythmic medication with or without ablation. I do not see a psychiatric evaluation for assessment of capacity, but at least we are hopeful we will be able to obtain informed consent with her repeating back to us the rationale, risks and benefits of the procedure, and ask her to sign the consent form if she elects to proceed with the procedure after we discuss again with her and her son Yaya. Discussed with Ms. Metcalf in detail. She expressed understanding and agreement with the plan. Patient also seen by Dr. Yeager. documented in this encounter Plan of Treatment Not on filedocumented as of this encounter Results ECG 12 Lead (02/26/2019 1:32 PM BRIDGE ATTACHER) [facility] Method Time Signature Ventricular 88 BPM MUSE Rate ECG/Min QRSD Interval 102 ms MUSE QT Interval 358 ms MUSE QTC Interval 433 ms MUSE R [place] 88 degrees MUSE T Wave [place] -89 degrees MUSE CODED Atrial MUSE DIAGNOSIS fibrillation CODED Atrial MUSE DIAGNOSIS fibrillation CODED Atrial flutter MUSE DIAGNOSIS Specimen Anatomical Collection Method Collection Time Receive d Time (Source) Location / / Volume Laterality 02/26/2019 1:32 PM 9 1:46 BRIDGE ATTACHER PM BRIDGE ATTACHER Impressions MUSE - 02/26/2019 1:46 PM BRIDGE ATTACHER Atrial fibrillation ST and T wave abnormality, consider infe rior ischemia When compared with ECG of 25-NOV-2018 12 :31, Atrial fibrillation has replaced Atrial flutter QRS axis has changed Reviewed by SPENCER Pérez Narrative This result has an attachment that is no t available. Procedure Note Trever Waldrop M.D. - 02/26/2019Forma tting of this note might be different from the original. IMPRESSION: Atrial fibrillation ST and T wave abnormality, consider infe rior ischemia When compared with ECG of 25-NOV-2018 12 :31, Atrial fibrillation has replaced Atrial flutter QRS axis has changed Reviewed by SPENCER Pérez Porfirio Villegas M.D. ECG ORDERABLES Performing Organization Address City/State/ZIP Code Phon e Number MUSE MUSE NA documented in this encounter Visit Diagnoses Diagnosis Flutter Atrial (HCC) - Primary documented in this encounter Additional Health Concerns Assessment Noted Time PHQ-9 Depression Total Score: 11 05/04/2013 4:05 PM CS T documented as of this encounter Care Teams Mattress Maker Relationship Specialty Start Date End Date Elsewhere, Pcp PCP - General Internal Medicine 07/27/18 documented as of this encounter
--- OUTSIDE RECORDS SUMMARY | 2021-12-27 05:24 | XMS_ITS | Encounter Summary ---
:1955 [address] Organization [facility] Address [address] [place] [address] Care Team Providers Name Role Phone Vianney Barrera APRN, C.N.P., M.S.N. Primary Care Provider [phone] Encounter Details Date Type Department Care Team Description 07/07/2018 Documentation Division of [facility] Vianney Barrera APRN , Internal Medicine, Herb France, M.S.[facility] [place], in [address] [place] [phone] [place] [address] [phone] Social History Tobacco Use Types Packs/Day Years Used Date Smoking Tobacco: Never Alcohol Habits Answer Date Recorded How often [...] often do you attend hinduism or Never 12/06/ 2019 mormon services? Do you belong to any [...] documented as of this encounter Progress Notes Vianney Barrera APRN, C.N.P., M.S.N. - 07/07/2018 11:33 AM CDT REFERRAL SOURCE Estelle Oquendo CHIEF COMPLAINT #1 Anticoagulation management: INDICATION: Atrial fibrillation, left atrial appendage thrombus GOAL INR: 2.5-3.5 DURATION: Ongoing Warfarin Administrations (last 168 hours) ?? Date/Time Action Medication Dose ?? 07/05/18 1614 Given warfarin tablet 4 mg (COUMADIN) 4 mg ?? 07/04/18 1625 Given warfarin tablet 5 mg (COUMADIN) 5 mg ?? 07/03/18 1711 Given warfarin tablet 7.5 mg (COUMADIN) 7.5 mg ?? 07/02/18 1736 Given warfarin tablet 5 mg (COUMADIN) 5 mg ?? 07/01/18 1920 Given warfarin tablet 5 mg (COUMADIN) 5 mg ?? INR (no units) Date Value Status 07/06/2018 2.6 Final 07/05/2018 2.7 Final 07/04/2018 1.9 Final 07/03/2018 1.3 Final 07/02/2018 1.3 Final 07/01/2018 1.6 Final 06/29/2018 1.1 Final DATE INR COUMADIN DOSE 06/27/2018 2.5 4.5 mg p.o. daily RECHECK INR: 07/09/2018; POC at [facility] documented in this encounter Plan of Treatment Not on filedocumented as of this encounter Visit Diagnoses Not on filedocumented in this encounter Additional Health Concerns Assessment Noted Time PHQ-9 Depression Total Score: 11 05/04/2013 4:05 PM CS T documented as of this encounter Care Teams Diagnostics Sales Developer Relationship Specialty Start Date End Date Vianney Barrera APRN, C.N.P., PCP - General Internal Medicine 07/06/18 07/26/18 M.S.N. [address] [place] [address] documented as of this encounter
--- OUTSIDE RECORDS SUMMARY | 2021-12-27 05:24 | XMS_ITS | Encounter Summary ---
:1955 Author Organization [facility] Address [address] [place] [address] Care Team Providers Name Role Phone Vianney Barrera APRN, C.NJordy, M.S.N. Primary Care Provider [phone] Reason for Visit Reason Comments Anticoagulation Encounter Details Date Type Department Care Team Description 07/20/2018 Documentation Division of Community Bruce, Vianney Caballero APRN , Anticoagulation Internal Medicine, C.N.P., M.S.N . [facility] in [address] [place] [phone] [place] [address] [phone] Social History Tobacco Use Types Packs/Day Years [...] or relatives? How often do you attend sabianism or Never 2018 gnosticist services? Do you belong to any clubs or No 02/26/2019 organizations such as sabianism groups, unions, fraternal or athletic groups, or [...] Notes Vianney Barrera APRN, C.N.P., M.S.N. - 07/20/2018 1:13 PM CDT REFERRAL SOURCE Estelle Oquendo CHIEF COMPLAINT [...] COUMADIN DOSE 06/27/2018 2.5 4.5 mg p.o. Daily 07/09/2018 2.9 4.5 mg p.o. Daily 07/13/2018 3.7 Hold today, then 3.5 mg daily 07/15/2018 2.2 4 mg p.o. daily 07/17/2018 2.3 4 mg p.o. daily 07/20/2018 1.6 5 mg p.o. daily ; Enoxaparin bridging 80 mg b.i.d. until INR>2.5 RECHECK INR: 07/22/2018; POC at [facility] documented in this encounter Plan of Treatment Not on filedocumented as of this encounter Visit Diagnoses Not on filedocumented in this encounter Additional Health Concerns Assessment Noted Time PHQ-9 Depression Total Score: 05/04/2013 4:05 PM CS T documented as of this encounter Care Teams Hot Mill Observer Relationship Specialty Start Date End Date Vianney Barrera APRN, C.N.P., PCP - General Internal Medicine 07/06/18 07/26/18 M.S.N. [address] [place] [phone] documented as of this encounter
--- OUTSIDE RECORDS SUMMARY | 2021-12-27 05:24 | XMS_ITS | Encounter Summary ---
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 How often do you attend religious or Never 2018 faith services? Do you belong to any clubs or No 02/26/2019 organizations such as religious groups, unions, fraFirst Warning Systems or athletic groups, or school groups? How [...] as inhaler needed for shortness of breath. levothyroxine Take 25 mcg by mouth 0 (SYNTHROID, every morning before LEVOTHROID) 25 mcg breakfast. tablet rizatriptan (MAXALT) 5 Take 1 tablet (5 mg 9 tablet 0 06/22 mg tablet total) by mouth as needed for migraine. simvastatin (ZOCOR) 20 Take 1 tablet (20 mg 0 mg tablet total) by mouth at bedtime. Hyperlipidemia nitroglycerin Place 0.4 mg under the 0 (NITROSTAT) 0.4 mg SL tongue every 5 (five) tablet minutes as needed for chest pain. DULoxetine (CYMBALTA) Take 1 capsule (30 mg 0 08/19/[address] capsule total) by mouth 2 (two) times a day. For Fibromyaligia ferrous sulfate 325 mg Take 1 tablet (65 mg of 0 07/06/2018 03/30/2020 (65 mg iron) DR tablet iron total) by mouth daily. For anemia fluticasone furoate Inhale 1 puff daily. 0 201808/19/2019 (ARNUITY ELLIPTA) 100 Asthma mcg/actuation diskus inhaler metFORMIN (GLUCOPHAGE) Take 1 tablet (500 mg [...] management as per previous homegoing care plan. acetaminophen Take 650 mg by mouth 0 0 11/25/2018 (TYLENOL) 325 mg every 6 (six) hours. tablet aspirin 325 mg tablet Take 325 mg by mouth 0 11/25/2018 daily. clotrimazole-betametha Apply 1 application 0 11/25/2018 sone (LOTRISONE) topically 2 (two) times 1-0.05 % cream a day. dilTIAZem CD (CARDIZEM Take 360 mg by mouth 0 11/25/2018 CD/CARTIA XT) 360 mg daily. 24 hr capsule losartan (COZAAR) 50 Take 1 tablet (50 mg 30 tablet 0 07/2311/25/2018 mg tablet total) by mouth daily. For hypertension. pantoprazole Take 1 tablet (40 mg 0 07/06/2018 (PROTONIX) 40 mg EC total) by mouth daily. tablet For GERD topiramate (TOPAMAX) Take 1 tablet (25 mg 0 07/0608/19/2019 25 mg tablet total) by mouth 2 (two) times a day. For headaches. documented as of this encounter Plan of Treatment Not on filedocumented as of this encounter Procedures Procedure Name Priority Date/Time Associated Comments Diagnosis PROTHROMBIN TIME (PT), Routine 10/20/2018 3:02 PM Flutter Atri al Results for this P CDT (HCC) procedure are in Thrombus Atrial the results (HCC) section. Acute On Chronic Combined Systolic (Congestive) And Diastolic (Congestive) Heart Failure ([facility]) CBC WITH DIFFERENTIAL, Routine 10/20/2018 3:02 PM Flutter Atri al Results for this B CDT (HCC) procedure are in Thrombus Atrial the results (HCC) section. 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) documented in this encounter Results (ABNORMAL) CBC with Differential, Blood (10/20/2018 3:02 PM CDT) [facility] Method Time Signature Hemoglobin 12.9 11.6 - 10/20/2018 15.0 g/dL 3:32 PM CDT Hematocrit 41.8 35.5 - 10/20/2018 44.9 % 3:32 PM CDT Erythrocytes 4.51 3.92 - 10/20/2018 5.13 3:32 PM CDT x10(12)/L MCV 92.7 78.2 - 10/20/2018 97.9 fL 3:32 PM CDT RBC Distrib Width 16.5 (H) 12.2 - 10/20/2018 16.1 % 3:32 PM CDT Platelet Count 395 (H) 157 - 371 10/20/2018 x10(9)/L 3:32 PM CDT Leukocytes 11.4 (H) 3.4 - 9.6 10/20/2018 x10(9)/L 3:32 PM CDT Neutrophils 7.80 (H) 1.56 - 10/20/2018 6.45 3:32 PM CDT x10(9)/L Lymphocytes 2.31 0.95 - 10/20/2018 3.07 3:32 PM CDT x10(9)/L Monocytes 0.88 (H) 0.26 - 10/20/2018 0.81 3:32 PM CDT x10(9)/L Eosinophils 0.34 0.03 - 10/20/2018 0.48 3:32 PM CDT x10(9)/L Basophils 0.08 0.01 - 10/20/2018 0.08 3:32 PM CDT x10(9)/L Specimen Anatomical Collection Method Collection Time Receive d Time (Source) Location / / Volume Laterality Blood (Blood, 10/20/2018 3:02 PM 10/21/19 19 3:23 Venous) CDT PM CDT Porfirio Villegas M.D. LAB BLOOD ADD-ON Performing Organization Address City/State/ZIP Code Phon e Number [facility] - [address] [place], [place] [address] [place] (ABNORMAL) PT (Prothrombin Time) with INR (10/20/2018 3:02 PM CDT) [facility] Method Time Signature Prothrombin 25.4 (H) 9.4 - 12.5 10/20/2018 Time, P sec 3:35 PM CDT INR 2.3 0.9 - 1.1 10/20/2018 3:35 PM CDT Comment: ----ADDITIONAL INFORMATION---- Standard intensity warfarin therapeutic range: 2.0 to 3.0 ?? High intensity warfarin therapeutic rang e: 2.5 to 3.5 Specimen Anatomical Collection Method Collection Time Receive d Time (Source) Location / / Volume Laterality Blood (Blood, 10/20/2018 3:02 PM 10/21/19 19 3:23 Venous) CDT PM CDT Porfirio Villegas M.D. LAB BLOOD ADD-ON Performing Organization Address City/State/ZIP Code Phon e Number [facility] - [address] [place], [place] [address] [place] (ABNORMAL) CMP (Comprehensive Metabolic Panel) (10/20/2018 3:02 PM CDT) Analysis Performed At Patho logist Time Signature Potassium, S 4.5 3.6 - 5.2 10/20/2018 mmol/L 4:05 PM CDT Sodium, S 138 135 - 145 10/20/2018 mmol/L 4:05 PM CDT Chloride, S 98 98 - 107 10/20/2018 mmol/L 4:05 PM CDT Bicarbonate, S 29 22 - 29 10/20/2018 mmol/L 4:05 PM CDT Anion Gap 11 7 - 15 10/20/2018 4:05 PM CDT BUN (Blood Urea 22 (H) 6 - 21 10/20/2018 Nitrogen), S mg/dL 4:05 PM CDT Creatinine 1.46 (H) 0.59 - 10/20/2018 1.04 mg/dL 4:05 PM CDT eGFR-Non 39 (L) >=60 10/20/2018 Black/ mL/min/BSA 4:05 PM CDT [place] Comment: ----ADDITIONAL INFORMATION---- Estimated GFR calculated using the 2009 CKD_EPI creatinine equation. eGFR-Black/ 44 (L) >=60 mL/min/BSA 2018 4:05 PM CDT Comment: ----ADDITIONAL INFORMATION---- Estimated GFR calculated using the 2009 CKD_EPI creatinine equation. Calcium, Total, S 9.4 8.8 - 10.2 mg/dL 10/20/2018 4:05 PM CDT Glucose, S 134 70 - 140 mg/dL 10/20/2018 4:05 PM CDT Protein, Total, S 7.0 6.3 - 7.9 g/dL 10/20/2018 4:05 P M CDT Albumin, S 4.1 3.5 - 5.0 g/dL 10/20/2018 4:05 PM CDT Aspartate Aminotransferase 224 (H) 8 - 43 U/L 10/20/2018 4 :05 PM CDT (AST), S Alkaline Phosphatase, S 213 (H) 35 - 104 U/L 10/20/2018 4: 05 PM CDT Alanine Aminotransferase (ALT), 158 (H) 7 - 45 U/L 019 4:05 PM CDT S Bilirubin, Total, S 0.8 <=1.2 mg/dL 10/20/2018 4:05 PM CDT Specimen Anatomical Collection Method Collection Time Receive d Time (Source) Location / / Volume Laterality Blood (Blood, 10/20/2018 3:02 PM 10/21/19 19 3:23 Venous) CDT PM CDT Porfirio Villegas M.D. 

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
--- OUTSIDE RECORDS SUMMARY | 2021-12-27 05:24 | XMS_ITS | Encounter Summary ---
:1955 Author Organization [facility] Address [address] [place] [address] Care Team Providers Name Role Phone Elsewhere, Pcp Primary Care Provider Unavailable Reason for Referral Outpatient (Routine) - Closed Specialty Diagnoses / Procedures Referred By Contact Refer red To [facility] Bess Monroy 200 [place] [address] Referral ID Status Reason Start Date Expiration Date Visits Requ ested Visits Authorized [id number] Closed 11/02/2018 11/02/2019 1 1 Scheduling Instructions With myself on 11/11 in the afternoon Encounter Details Date Type Department Care Team Description 11/02/2018 Orders Only Department of Cody Villegas Atrial (HCC) Cardiovascular Medicine Porfirio (Pr imary Dx) in [facility] nasim Kellogg [address] [facility] [address] [place], [place] [address] [place], [place] [phone] Social History Tobacco Use Types Packs/Day Years [...] do you attend religious or Never 2018 buddhist services? Do you belong to any clubs or No 02/26/2019 organizations such as religious groups, unions, fraternal or athletic groups, or [...] Expected: office visit (clinic) 2018 (Approximate), Expires: 11/02/2021 documented as of this encounter Results ECG 12 Lead (11/25/2018 12:31 PM CDT) [facility] gist Method Time Signature Ventricular 96 BPM MUSE Rate ECG/Min QRSD Interval 98 ms MUSE QT Interval 274 ms MUSE QTC Interval 346 ms MUSE P [place] -106 degrees MUSE R [place] 99 degrees MUSE T Wave [place] -99 degrees MUSE CODED DIAGNOSIS Atrial MUSE flutter Specimen Anatomical Collection Method Collection Time Receive d Time (Source) Location / / Volume Laterality 11/25/2018 12:31 11/25/2018 1:10 PM CDT PM CDT Impressions MUSE - 11/25/2018 1:10 PM CDT Atrial flutter with variable A-V block Rightward axis Nonspecific ST and T wave abnormality When compared with ECG of 14-SEP-2018 08 :38, No significant change was found Reviewed by SPENCER Foreman Narrative This result has an attachment that is no t available. Procedure Note Ricardo Magallanes M.D. - 11/25/2018Form atting of this note might be different from the original. IMPRESSION: Atrial flutter with variable A-V block Rightward axis Nonspecific ST and T wave abnormality When compared with ECG of 14-SEP-2018 08 :38, No significant change was found Reviewed by SPENCER Foreman Porfirio Villegas M.D. ECG ORDERABLES Performing Organization Address City/State/ZIP Code Phon e Number MUSE MUSE NA documented in this encounter Visit Diagnoses Diagnosis Flutter Atrial (HCC) - Primary documented in this encounter Additional Health Concerns Assessment Noted Time PHQ-9 Depression Total Score: 11 05/04/2013 4:05 PM CS T documented as of this encounter Care Teams Press Operator Carbon Products Relationship Specialty Start Date End Date Elsewhere, Pcp PCP - General Internal Medicine 07/27/18 documented as of this encounter
--- OUTSIDE RECORDS SUMMARY | 2021-12-27 05:24 | XMS_ITS | Encounter Summary ---
:1955 Author Organization [facility] Address [address] [place] [address] Care Team Providers Name Role Phone Vianney Barrera APRN, C.N.P., M.S.N. Primary Care Provider [phone] Encounter Details Date Type Department Care Team Description 07/07/2018 Orders Only Division of [facility] Vianney Barrera APRN, Internal Medicine, Herb France, M.S.NEdilma [facility], in [address] [place] [phone] [place] [address] [phone] Social History Tobacco Use Types Packs/Day Years [...] do you attend lutheran or Never 2018 judaism services? Do you [...] documented as of this encounter Care Teams Microelectronics Assembler Relationship Specialty Start Date End Date Vianney Barrera APRN, C.N.PEdilma, PCP - General Internal Medicine 07/06/18 07/26/18 M.S.N. [address] [place] [phone] documented as of this encounter
--- OUTSIDE RECORDS SUMMARY | 2021-12-27 05:24 | XMS_ITS | Encounter Summary ---
:1955 Author Organization [facility] Address [address] [place] [address] Care Team Providers Name Role Phone Vianney Barrera APRN C.N.P., M.S.N. Primary Care Provider [phone] Reason for Visit Reason Comments Anticoagulation management Encounter Details Date Type Department Care Team Description 07/22/2018 Documentation Division of Reny Gabriel [facility] Internal D, P.A.-[facility] [address] [place] [address] in [facility] [address] [place] [phone] [place] [address] (Work) [place], [place] [phone] (Fax) [phone] Social History Tobacco Use Types Packs/Day Years [...] or relatives? How often do you attend mandaen or Never 2018 scientology services? Do you belong to any clubs or No 02/26/2019 organizations such as mandaen groups, unions, fraternal or athletic groups, or [...] documented as of this encounter Progress Notes Reny Gabriel P.A.-C. - 07/22/2018 10:03 AM CDT REFERRAL SOURCE Estelle Oquendo CHIEF [...] Enoxaparin bridging 80 mg b.i.d. until INR>2.5 07/22/2018 2.3 POC DISCONTINUE Lovenox. Continue Coumadin 5 mg daily RECHECK INR: 07/24/2018; POC documented in this encounter Plan of Treatment Not on filedocumented as of this encounter Visit Diagnoses Not on filedocumented in this encounter Additional Health Concerns Assessment Noted Time PHQ-9 Depression Total Score: 11 05/04/2013 4:05 PM CS T documented as of this encounter Care Teams Ophthalmic Pathologist Relationship Specialty Start Date End Date Vianney Barrera APRN, C.N.P., PCP - General Internal Medicine 07/06/18 07/26/18 M.S.N. [address] [place] [phone] documented as of this encounter
--- OUTSIDE RECORDS SUMMARY | 2021-12-27 05:24 | XMS_ITS | Encounter Summary ---
:1955 Author Organization [facility] Address [address] [place] [address] Care Team Providers Name Role Phone Vianney Barrera APRN, C.N.P., M.S.N. Primary Care Provider [phone] Reason for Visit Reason Onset Date Comments Please call to verify [facility]fp Discharge 07/20/2018 Encounter Details Date Type Department Care Team Description 07/20/2018 Clinical Communication Division of Vianney Barrera Plea se call to [facility] Internal Dulce SARABIA, verify [facility], in [address] [place] [phone] [place] [address] [place], [place] (Work) [phone] Social History Tobacco Use Types Packs/Day Years [...] or relatives? How often do you attend quaker or Never 2018 congregational services? Do you belong to any clubs or No 02/26/2019 organizations such as quaker groups, unions, fraternal or athletic groups, or [...] this encounter Miscellaneous Notes Telephone Encounter - GeoffJonpanchito Salinas - 07/20/2018 12:23 PM CDT Patient is to discharge from [facility] on 07/25, communication was shared on 07/20 with the desk staff to fax an updated appointment guide to the facility. Patient is not on the Pending [facility] SN[facility] list. Update PCP/ Report/ Registry and remove Comment and Patient type. documented in this encounter Plan of Treatment Not on filedocumented as of this encounter Visit Diagnoses Not on filedocumented in this encounter Additional Health Concerns Assessment Noted Time PHQ-9 Depression Total Score: 11 05/04/2013 4:05 PM CS T documented as of this encounter Care Teams Atomic Fuel Assembler Relationship Specialty Start Date End Date Vianney Barrera APRN, C.N.P., PCP - General Internal Medicine 07/06/18 07/26/18 M.S.N. [address] [place] [address] documented as of this encounter
--- OUTSIDE RECORDS SUMMARY | 2021-12-27 05:24 | XMS_ITS | Encounter Summary ---
:1955 Author Organization [facility] Address [address] [place] [address] Care Team Providers Name Role Phone Elsewhere, Pcp Primary Care Provider Unavailable Encounter Details Date Type Department Care Team Description 10/22/2018 Clinical Communication Department of Marley Cooper Cardiovascular Medicine D in [employer] [phone] [address] [facility] (Work) [place] [phone] Social History Tobacco Use Types Packs/Day [...] do you attend shinto or Never 2018 adventism services? Do you [...] this encounter Miscellaneous Notes Telephone Encounter - Marley Cooper - 10/22/2018 12:53 PM CDT Left message for Ms. Metcalf to go over 2 new appointments that were added to her schedule. Left phone number to call back if she had any questions about the appointments. documented in this encounter Plan of Treatment Not on filedocumented as of this encounter Visit Diagnoses Not on filedocumented in this encounter Additional Health Concerns Assessment Noted Time PHQ-9 Depression Total Score: 11 05/04/2013 4:05 PM CS T documented as of this encounter Care Teams Wholesale Parts Salesperson Relationship Specialty Start Date End Date Elsewhere, Pcp PCP - General Internal Medicine 07/27/18 documented as of this encounter
--- OUTSIDE RECORDS SUMMARY | 2021-12-27 05:24 | XMS_ITS | Encounter Summary ---
:1955 Author Organization [facility] Address [address] [place] [address] Care Team Providers Name Role Phone Elsewhere, Pcp Primary Care Provider Unavailable Reason for Visit Reason Onset Date Comments Appointment 09/15/2018 Encounter Details Date Type Department Care Team Description 09/15/2018 Clinical Communication Department of Manisha Villegas Cardiovascular [facility] nasim Kellogg [address] [facility] [address] [place] [address] [place], [place] [phone] Social History Tobacco Use Types Packs/Day Years [...] do you attend orthodox or Never 2018 nondenominational services? Do you belong to any clubs or No 02/26/2019 organizations such as orthodox groups, unions, fraternal or athletic groups, or [...] this encounter Miscellaneous Notes Telephone Encounter - Na Rodriguez Brad - 09/15/2018 2:59 PM CDT I did call Sierra and left her a message. I told her that it probably wouldn't work to move these appts due to the echos going way out and no availability in on that Friday. She will call back if she still wants to reschedule to a later date. Thanks Telephone Encounter - Kellie Garcia - 09/15/2018 1:40 PM CDT Hi, I got a call from [facility] by a Sierra. She was calling this patient's appts. She was wondering if the patient can come on a and Friday? Can you please call her back [phone]. Thanks I didn't know if there was any notes on this pt. documented in this encounter Plan of Treatment Not on filedocumented as of this encounter Visit Diagnoses Not on filedocumented in this encounter Additional Health Concerns Assessment Noted Time PHQ-9 Depression Total Score: 11 05/04/2013 4:05 PM CS T documented as of this encounter Care Teams Federal Aid Coordinator Relationship Specialty Start Date End Date Elsewhere, Pcp PCP - General Internal Medicine 07/27/18 documented as of this encounter
--- OUTSIDE RECORDS SUMMARY | 2021-12-27 05:24 | XMS_ITS | Encounter Summary ---
:1955 Author Organization [facility] Address [address] [place] [address] Care Team Providers Name Role Phone Vianney Barrera APRN, C.N.P., M.S.N. Primary Care Provider [phone] Reason for Visit Reason Comments Anticoagulation Encounter Details Date Type Department Care Team Description 07/24/2018 Documentation Division [facility], Romy Fernández APRN, [facility], in C.N.P. [place], [place] [address] [place] [phone] Social History Tobacco Use Types Packs/Day [...] do you attend anabaptist or Never 2018 shinto services? Do you [...] documented as of this encounter Progress Notes Romy Steiner, NO, C.N.P. - 07/24/2018 10:01 AM CDT REFERRAL SOURCE Estelle Fidelmurali CHIEF COMPLAINT #1 Anticoagulation management: INDICATION: Atrial [...] DISCONTINUE Lovenox. Continue Coumadin 5 mg daily 07/24/2018 3.3 POC Continue Coumadin 5 mg daily RECHECK INR: 07/27/2018 Since patient will be discharging from [facility] 07/25/2018, she needs to have next INR scheduled through primary care provider. INR due 07/27/2018. documented in this encounter Plan of Treatment Not on filedocumented as of this encounter Visit Diagnoses Not on filedocumented in this encounter Additional Health Concerns Assessment Noted Time PHQ-9 Depression Total Score: 11 05/04/2013 4:05 PM CS T documented as of this encounter Care Teams Teletypist Relationship Specialty Start Date End Date Vianney Barrera APRN, C.N.P., PCP - General Internal Medicine 07/06/18 07/26/18 M.S.N. [address] [place] [address] documented as of this encounter
--- OUTSIDE RECORDS SUMMARY | 2021-12-27 05:24 | XMS_ITS | Encounter Summary ---
:1955 Author Organization [facility] Address [address] [place] [address] Care Team Providers Name Role Phone Elsewhere, Pcp Primary Care Provider Unavailable Encounter Details Date Type Department Care Team Description 10/20/2018 Hospital Encounter Department of Sondra Villegas On Chronic Cardiovascular Diseases Archana Monroy bined Systolic in [facility] nasim Kellogg (Congestive) And [address] [facility] [address] [facility] Diastolic [place], [place] (Congestive) Heart [phone] Failure (HCC) [phone] Social History Tobacco Use Types Packs/Day Years [...] do you attend evangelical or Never 2018 anabaptist services? Do you belong to any clubs [...] Diagnosis Comme nts (TTE) 2D ECHO Routine 10/20/2018 2:26 PM Acute On Chronic Resu lts for this DOPPLER COLOR CDT Combined Systolic procedure are in (Congestive) And the results Diastolic section. (Congestive) Heart Failure (HCC) documented in this encounter Results (TTE) 2D ECHO DOPPLER COLOR (10/20/2018 2:26 PM CDT) [facility] gist Method Time Signature Ejection Fraction 55 MC CV EIMS Mid-Ascending Aorta 30 MC CV EIMS LV Mass Index 96 MC CV EIMS LV End-Diastolic 52 MC CV EIMS Diameter LV End-Systolic 35 MC CV EIMS Diameter MV E Velocity 1.0 MC CV EIMS Left ventricular 39 MC CV EIMS stroke volume index Cardiac Output 3.90 MC CV EIMS Cardiac Index 1.94 MC CV EIMS LV Interventricular 11 MC CV EIMS Septal Wall Thickness LV Posterior Wall 9 MC CV EIMS Thickness LV Relative Wall 35 MC CV EIMS Thickness RV 4-Chamber Basal 44 MC CV EIMS Diameter RV 4-Chamber Mid 32 MC CV EIMS Diameter TAPSE 18 MC CV EIMS Tricuspid Annular S? 0.11 MC CV EIMS TR Vmax 2.51 MC CV EIMS RA Pressure 15 MC CV EIMS RV Systolic Pressure 40 MC CV EIM S IVC Diameter 24 MC CV EIMS AV mean gradient 5 MC CV EIMS Aortic valve area 2.36 MC CV EIMS Aortic Valve 0.83 MC CV EIMS Dimensionless Index LA Volume Index 57 MC CV EIMS Anatomical Region Laterality Modality Echocardiography Specimen (Source) Anatomical Collection Method Collection Time Re ceived Time Location / / Volume Laterality 10/20/2018 12:47 PM CDT Narrative 10/20/2018 6:23 PM CDT For the complete report, see the Order-L evel Documents below. Final Impressions 1. Technically challenging examination. Please see comments. 2. Normal left ventricular chamber size, no regional wall motion abnormalities, estimated ejection fraction 55% with qibk-uy-mucc variability. 3. Mild right ventricular enlargement wi th mildly reduced systolic function. Estimated right ventricular systolic pressure 40 mmHg. 4. Moderate mitral valve regurgitation d ue to thickened mitral valve leaflets, somewhat tethered posterior leaflet and anterior leaflet over-ride. 5. Moderate tricuspid valve regurgitatio n due to tricuspid annular dilatation becomes more prominent with inspiration. 6. Severe bi-atrial enlargement. 7. Dilated inferior vena cava with reduc ed inspiratory collapse (<50%). 8. Tiny posterior pericardial effusion. Comments Technically challenging examination due to limited acoustic windows and patient's sleepiness and inability to stay awake to follow br eathing instructions. Indeterminate bradycardic rhythm with HR 45-50 BPM. Intermittent P waves are seen with junctional escape beats. Suggest a 12-lead ECG for further evaluation if cl inically indicated. Findings LEFT VENTRICLE: ??Normal left ventricula r chamber size. ??Normal left ventricular wall thickness. Estimated left ventricular ejection fra ction 55 % with tdil-jq-aija variability. ??No regional wall motion abnormalities. ??Indetermina te left ventricular diastolic function grade. ??RIGHT VENTRICLE: ??Mild right ventricular enla rgement. ??Mild decrease in right ventricular systolic function. ??Estimated right ventricular systolic pressure 40 mmHg (systolic blood pressure 93 mmHg). ??ATRIA: ??Severe left atrial enl argement. ??Left atrial volume index 57 ml/m^2. ??Severe right atrial enlargement. ??CARDIAC VALV ES: ??Trileaflet aortic valve. ??Mildly thickened aortic valve. ??Mild aortic valve regurgitation . ??Mildly thickened mitral valve with slightly tethered posterior leaflet and anterior leaflet o cameron-ride. The anterior leaflet tip thickening may be post-inflammatory in etiology. ??Mildly calcified mitral annulus without significant stenosis. Moderate mitral valve regurgitation (two jets). ??Normal pulmonary valve. ??Trivial pulmonary valve regurgitation. ??Normal tricuspid valve. ??Tricuspid annulus dilatation. ??Moderate tricuspid valve regurgitation. ??OTHER E CHO FINDINGS: ??Dilated inferior vena cava with reduced inspiratory collapse (<50%). ??Normal as cending aorta dimension. ??Abdominal aorta incompletely visualized. ??Normal abdominal aorta Dop pler flow pattern. ??Atrial septum not well visualized. No intracardiac mass or thrombus, but th e left atrial appendage cannot be visualized adequately with transthoracic echo to exclude throm bus in this location. ??Prominent Chiari network. Prominent circumferential epicardial fat layer. ??Tiny posterior pericardial effusion. For the complete report, see the Order-L evel Documents below. See PDF For Result Procedure Note Génesis Pike M.D. - 10/21/2018Formattin g of this note might be different from the original. For the complete report, see the Order-L evel Documents below. Final Impressions 1. Technically challenging examination. Please see comments. 2. Normal left ventricular chamber size, no regional wall motion abnormalities, estimated ejection fraction 55% with sfqx-ld-foju variability. 3. Mild right ventricular enlargement wi th mildly reduced systolic function. Estimated right ventricular systolic pressure 40 mmHg. 4. Moderate mitral valve regurgitation d ue to thickened mitral valve leaflets, somewhat tethered posterior leaflet and anterior leaflet over-ride. 5. Moderate tricuspid valve regurgitatio n due to tricuspid annular dilatation becomes more prominent with inspiration. 6. Severe bi-atrial enlargement. 7. Dilated inferior vena cava with reduc ed inspiratory collapse (<50%). 8. Tiny posterior pericardial effusion. Comments Technically challenging examination due to limited acoustic windows and patient's sleepiness and inability to stay awake to follow br eathing instructions. Indeterminate bradycardic rhythm with HR 45-50 BPM. Intermittent P waves are seen with junctional escape beats. Suggest a 12-lead ECG for further evaluation if cl inically indicated. Findings LEFT VENTRICLE: Normal left ventricular chamber size. Normal left ventricular wall thickness. Estimated left ventricular ejection fra ction 55 % with diil-ht-qewm variability. No regional wall motion abnormalities. Indeterminate left ventricular diastolic function grade. RIGHT VENTRICLE: Mild right ventricular enlarg ement. Mild decrease in right ventricular systolic function. Estimated right ventricular sy stolic pressure 40 mmHg (systolic blood pressure 93 mmHg). ATRIA: Severe left atrial enlarge ment. Left atrial volume index 57 ml/m^2. Severe right atrial enlargement. CARDIAC VALVES : Trileaflet aortic valve. Mildly thickened aortic valve. Mild aortic valve regurgitation. Mildly thickened mitral valve with slightly tethered posterior leaflet and anterior leaflet o cameron-ride. The anterior leaflet tip thickening may be post-inflammatory in etiology. Mildly ca lcified mitral annulus without significant stenosis. Moderate mitral valve regurgitation (two jets). Normal pulmonary valve. Trivial pulmonary valve regurgitation. Normal tricuspid va lve. Tricuspid annulus dilatation. Moderate tricuspid valve regurgitation. OTHER ECH O FINDINGS: Dilated inferior vena cava with reduced inspiratory collapse (<50%). Normal asce nding aorta dimension. Abdominal aorta incompletely visualized. Normal abdominal aorta Doppl er flow pattern. Atrial septum not well visualized. No intracardiac mass or thrombus, but th e left atrial appendage cannot be visualized adequately with transthoracic echo to exclude throm bus in this location. Prominent Chiari network. Prominent circumferential epicardial fat layer. Tiny posterior pericardial effusion. For the complete report, see the Order-L evel Documents below. See PDF For Result Javier Kaiser M.D. 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
--- OUTSIDE RECORDS SUMMARY | 2021-12-27 05:24 | XMS_ITS | Encounter Summary ---
:1955 Author Organization [facility] Address [address] [place] [address] Care Team Providers Name Role Phone Elsewhere, Pcp Primary Care Provider Unavailable Reason for Visit Reason Comments Medication Visit Encounter Details Date Type Department Care Team Description 07/20/2018 Documentation Division of [facility] Cathleen, Medication Visit Internal Medicine, Bess Diazwin, [facility], in [address] [place] [address] [place] [address] [place] [phone] [phone] Social History Tobacco Use Types Packs/Day Years [...] or relatives? How often do you attend yarsanism or Never 2018 moravian services? Do you belong to any clubs or No 02/26/2019 organizations such as yarsanism groups, unions, fraternal or athletic groups, or [...] documented as of this encounter Progress Notes Emily Connolly M.D. - 07/20/2018 11:39 PM CDT Contacted by Jyothi at [facility] for missed coumadin dose this last Friday. Last INR 2.3 on the Has been on 4 mg daily Recommended resuming previous dose with recheck of INR this week. documented in this encounter Plan of Treatment Not on filedocumented as of this encounter Visit Diagnoses Not on filedocumented in this encounter Additional Health Concerns Assessment Noted Time PHQ-9 Depression Total Score: 11 05/04/2013 4:05 PM CS T documented as of this encounter Care Teams Water Resource Manager Relationship Specialty Start Date End Date Elsewhere, Pcp PCP - General Internal Medicine 07/27/18 documented as of this encounter
--- OUTSIDE RECORDS SUMMARY | 2021-12-27 05:24 | XMS_ITS | Encounter Summary ---
:1955 Author Organization [facility] Address [address] [place] [address] Care Team Providers Name Role Phone Vianney Barrera APRN C.N.P., M.S.N. Primary Care Provider [phone] Reason for Visit Reason Comments CTP Eligibility Encounter Details Date Type Department Care Team Description 07/07/2018 Patient Outreach Division of Palomo Hardy, CTP Eligibility Internal Medicine, [facility] in [address] [place] [phone] [place] [phone] Social History Tobacco Use Types Packs/Day Years [...] or relatives? How often do you attend rastafari or Never 2018 oriental orthodox services? Do you belong to any clubs or No 02/26/2019 organizations such as rastafari groups, unions, fraternal or athletic groups, or [...] documented as of this encounter Progress Notes Pearl Hurd RManjeet. - 07/07/2018 7:01 AM CDT Patient is not eligible for CTP at this time and will not be offered enrollment. documented in this encounter Plan of Treatment Not on filedocumented as of this encounter Visit Diagnoses Not on filedocumented in this encounter Additional Health Concerns Assessment Noted Time PHQ-9 Depression Total Score: 11 05/04/2013 4:05 PM CS T documented as of this encounter Care Teams Datapower Consultant Relationship Specialty Start Date End Date Vianney Barrera APRN C.N.P., PCP - General Internal Medicine 07/06/18 07/26/18 M.S.N. [address] [place] [phone] documented as of this encounter
--- OUTSIDE RECORDS SUMMARY | 2021-12-27 05:24 | XMS_ITS | Encounter Summary ---
:1955 Author Organization [facility] Address [address] [place] [address] Care Team Providers Name Role Phone Vianney Barrera APRN, C.NEdilmaPEdilma, M.S.N. Primary Care Provider [phone] Reason for Visit Appointment Request (Routine) - Closed Specialty Diagnoses / Procedures Referred By Contact Refer red To Contact Community Internal Medicine Referral ID Status Reason Start Date Expiration Date Visits Requ ested Visits Authorized [id number] Closed 07/06/2018 07/06/2019 1 1 Encounter Details Date Type Department Care Team Description 07/08/2018 External Outreach Division of Cody Keyes ([facility]) (Primary Dx); Community Internal Della Leon, Thrombus Atrial ([facility]); Medicine, Herb Marshall, B.ChEdilma, Hypertensi ve Heart Disease With Heart Failure ([facility]); [facility] in [place] Diabetes Mellitus Type 2 Without Complic ation ([facility]); [place], [facility] [facility] Migraine Headache; [place], [place] Hyperlipidemia On Treatment; [address] [facility] [id number] Fibromyalgia; [place], [place] [phone] Other Specifie d Anxiety Disorders; [phone] (Work) Apnea Sleep Obstructive; [phone] Gastroesophagea l Reflux Disease Without Esophagitis; (Fax) Irregular Sleep -Wake Rhythm Disorder Social History Tobacco Use Types Packs/Day Years [...] do you attend orthodox or Never 2018 yazdanism services? Do you belong to any clubs [...] Sign Reading Time Taken Comments Blood Pressure 118/81 07/08/2018 1:16 PM CDT Pulse 79 07/08/2018 1:16 PM CDT Temperature 36.4 ??C (97.6 ??F) 07/08/2018 1:16 PM CDT Respiratory Rate - - Oxygen Saturation 97% 07/08/2018 1:16 PM CDT Inhaled Oxygen Concentration - - Weight - - Height - - Body Mass Index - - documented in this encounter H&P Notes Della Keyes M.B., BEsthela, B.A.Frank, M.D. - 07/08/2018 2:30 PM CDT CHIEF COMPLAINT / REASON FOR VISIT Iris Metcalf is a 63 y.o. female seen today for an admission visit at [facility] (post-acute care in [facility] HISTORY OF PRESENT ILLNESS Ms. Metcalf is 63 years old and lives in [place]. She has multiple medical comorbidities including recurrent atrial flutter, hypertension, chronic diastolic heart failure, hyperlipidemia, obstructive sleep apnea, fibromyalgia, insomnia for which she has attended sleep medicine in the past and completed CBT, depression with anxiety and dependent personality disorder. She was hospitalized 06/29/2018 through 07/06/2018 with heart rhythm service with recurrent atrial flutter. See below for further details. I visited with her this afternoon at the skilled facility. She was unaccompanied at the time of the visit. She had just completed physical therapy and was disappointed that she cannot walk on her own. REVIEW OF SYSTEMS Constitutional: no fevers Eyes: no pain, drainage or redness ENT: no congestion, sore throat or dry mouth CV: no chest pain, pressure or edema Resp: no cough, does endorse some dyspnea with exertion GI: Reports constipation during her hospital stay which has resolved. : no dysuria or frequency Skin: No issues MS: She denies any joint pain currently. Neuro: she has a history of migraine but controlled on her current regimen. Psych: She said she had the best sleep last night. She did not sleep well in hospital. What she doesat home to help with sleep is apply icy Hot or an alternative muscle rub to her feet if they are feeling uncomfortable night. Last night she took Tylenol which helped. She uses CPAP at home intermittently. Her son will bring on or Friday. ?? The following portions of the patient's history were reviewed and updated as appropriate in [facility]:allergies, current medications, medical/surgical history, social history, and problem list. Social History Social History ??? Marital status: Single Spouse name: N/A ??? Number of children: N/A ??? Years of education: N/A Occupational History ??? Not on file. Social History Main Topics ??? Smoking status: Never Smoker ??? Smokeless tobacco: Not on file ??? Alcohol use Not on file ??? Drug use: Unknown ??? Sexual activity: Not on file Other Topics Concern ??? Not on file Social History Narrative She has 2 sons Tony and Yaya. She lives with 1 son and an ex-boyfriend PHYSICAL EXAM BP 118/81 Pulse 79 Temp 36.4 ??C SpO2 97% Wt Readings from Last 5 Encounters: 07/06/18 87.7 kg 09/03/13 86 kg 07/15/13 88.8 kg 04/07/13 92 kg 07/01/12 95.4 kg Constitutional: well nourished/hydrated/groomed, no acute distress lying in bed on 1 pillow Eyes: no injection/drainage; ENT: mucous membranes moist CV: no edema; regular rate no murmurs Resp: good effort; no increased work of breathing on room air. No added sounds. GI: bowel sounds wnl; soft, nontender, nondistended Skin: She has some heaed scars on her arms. MS: no deformities; Neuro: She can follow appropriately; she is moving all 4 extremities with antigravity strength. She transfers independently to the sitting position in bed. Psych: judgment/insight appears adequate; mood/affect somewhat flat. No Known Allergies Current Outpatient Prescriptions: ??? acetaminophen (TYLENOL) 500 mg tablet, Take 2 tablets (1,000 mg total) by mouth every 6 (six) hours as needed for pain or fever., Disp: , Rfl: ??? albuterol (PROAIR HFA) 90 mcg/actuation inhaler, Inhale 1-2 puffs every 4 (four) hours as neededfor shortness of breath., Disp: 1 Inhaler, Rfl: 11 ??? oxflcgl-wtxbsnjlqkrrt-skkingzs (EXCEDRIN MIGRAINE) 250-250-65 mg per tablet, Take 1-2 tablets bymouth as needed for headaches., Disp: , Rfl: ??? dilTIAZem (DILACOR XR/DILT-XR) 240 mg ER capsule, Take 1 capsule (240 mg total) by mouth daily. For atrial fibrillation, Disp: , Rfl: ??? DULoxetine (CYMBALTA) [address] capsule, Take 1 capsule (30 mg total) by mouth 2 (two) times a day. For Fibromyaligia, Disp: , Rfl: ??? ferrous sulfate 325 mg (65 mg iron) DR tablet, Take 1 tablet (65 mg of iron total) by mouth daily. For anemia, Disp: , Rfl: ??? fluticasone furoate (ARNUITY ELLIPTA) 100 mcg/actuation diskus inhaler, Inhale 1 puff daily. Asthma, Disp: , Rfl: ??? losartan (COZAAR) 50 mg tablet, Take 1 tablet (50 mg total) by mouth daily. For hypertension., Disp: , Rfl: ??? metFORMIN (GLUCOPHAGE) 500 mg tablet, Take 1 tablet (500 mg total) by mouth 2 (two) times a day with meals. For Diabetes Mellitus, Disp: , Rfl: ??? metoprolol tartrate (LOPRESSOR) 50 mg tablet, Take 2 tablets (100 mg total) by mouth 2 (two) times a day. For heart rate control., Disp: , Rfl: ??? pantoprazole (PROTONIX) 40 mg EC tablet, Take 1 tablet (40 mg total) by mouth daily. For GERD, Disp: , Rfl: ??? rizatriptan (MAXALT) 5 mg tablet, Take 1 tablet (5 mg total) by mouth as needed for migraine., Disp: 9 tablet, Rfl: 0 ??? simvastatin (ZOCOR) 20 mg tablet, Take 1 tablet (20 mg total) by mouth at bedtime. Hyperlipidemia, Disp: , Rfl: ??? topiramate (TOPAMAX) 25 mg tablet, Take 1 tablet (25 mg total) by mouth 2 (two) times a day. Forheadaches., Disp: , Rfl: ??? trolamine salicylate (ASPERCREME) 10 % cream, Apply 1 application topically 4 (four) times a dayas needed for muscle/joint pain., Disp: 85 g, Rfl: 0 ??? warfarin (COUMADIN) 5 mg tablet, Take 1 tablet (5 mg total) by mouth daily. For left atrial thrombus; INR goal 2.5-3.5., Disp: , Rfl: ASSESSMENT/PLAN #1 Flutter Atrial (HCC) Overview: -admitted at the [facility] from 06/22/2018 - 06/23/2018, where she was treatedfor atrial fibrillation/flutter with diltiazem drip and self converted to sinus rhythm; her metoprolol increased to 100 mg b.i.d. and she was dismissed. During her follow-up visit, she was noted to have recurrent atrial flutter. -Electrocardiogram obtained revealed atrial flutter with ventricular rates 140 with 2-1 AV block. The diltiazem drip was initiated, which transiently controlled her rates. -06/30/2018, she had recurrence of rapid rates despite diltiazem and re- initiation of metoprolol. Transesophageal echo cardiogram demonstrated a mobile left atrial thrombus. Due to the thrombus atrial flutter ablation was canceled. Xarelto was discontinued. Intravenous heparin was initiated. Coumadin was initiated with a INR goal of 2.5-3.5. ?? -Heart rate control was obtained with Diltiazem XR and Metoprolol. -Cardioversion was contraindicated with the mobile left atrial thrombus and anti-rhythmics that could potentially convert to sinus rhythm also need to be avoided. -Repeat transesophageal echo to ensure resolution of thrombus within the left atrium followed by cardioversion should be pursued in 6 weeks. At that time atrial flutter ablation can be considered. Assessment & Plan: Rates in the 70s. Blood pressure stable. Continues on warfarin per order. #2 Thrombus Atrial (HCC) Overview: On warfarin as noted above. #3 Hypertensive Heart Disease With Heart Failure (HCC) Overview: Echo 07/01/2018: Final Impressions 1. Left atrial appendage thrombus. Multilobulated mass with mobile components (clips 45-49). Spotaneous echo contrast. 2. Moderate left ventricular enlargement. Estimated ejection fraction 45%. 3. Mild-moderate mitral valve regurgitation. 4. Moderate tricuspid valve regurgitation. 5. Severe bi-atrial enlargement. She is on losartan, in addition to diltiazem and metoprolol. Assessment & Plan: Appears euvolemic on examination today. #4 Diabetes Mellitus Type 2 Without Complication (HCC) Overview: A1c 6.5% April 2018 in outside lab results. She does not check her blood sugars at due to tremor in her upper extremities. On Metformin. Assessment & Plan: We will continue with metformin. Blood glucose in the 100-130s range in the hospital. We are not checking regularly at the facility. #5 Migraine Headache Overview: Controlled on her current regimen with Topamax,PRN rizatriptan, p.r.n. Excedrin. #6 Hyperlipidemia On Treatment Overview: Continues on simvastatin. #7 Fibromyalgia Overview: On duloxetine. Pain currently controlled. #8 Other Specified Anxiety Disorders Overview: Depression with anxiety, PTSD listed in her diagnoses in outside records. On duloxetine, which she takes for fibromyalgia also. #9 Apnea Sleep Obstructive Overview: Her son will collect her CPAP machine from home later this week and bring to the facility. #10 Gastroesophageal Reflux Disease Without Esophagitis Overview: Controlled on pantoprazole. #11 Irregular Sleep-Wake Rhythm Disorder Overview: She slept well last night. Will plan to schedule a dose of Tylenol at nighttime to help with sleep per her request. Future Appointments Date Time Provider Department Center 08/10/2018 9:00 AM Ana Maria Aburto APRN, C.N.P., M.S.N. [facility] RST Spec ?? Full code. ?? Current co-morbidities, ADL need/level of debility require skilled care/therapy. Medications and labs all reviewed and appropriate related to comorbidities, unless otherwise indicated above. Physician order sheet signed. on. ?? Disposition: Home when able Patient/Caregiver Education: Patient and caregiver(s) are ready to learn. Barriers to learning None. Learning preference listening. Plan explained and patient/caregiver(s) verbalize understanding of content. Appropriate caregiver(s) and family/guardian/HCPOA will notify team if questions/concerns. documented in this encounter Miscellaneous Notes Assessment & Plan Note - Della Keyes M.B., Kindra, Bess Mann - 07/08/2018 3:50 PM CDTAssociated Problem(s): Diabetes Mellitus Type 2 Without Complication (HCC) We will continue with metformin. Blood glucose in the 100-130s range in the hospital. We are not checking regularly at the facility. Assessment & Plan Note - Della Keyes M.B., B.Ch., Bess Mann - 07/08/2018 3:49 PM CDTAssociated Problem(s): Hypertension Essential Primary Appears euvolemic on examination today. Assessment & Plan Note - Della Keyes M.B., B.Ch., Bess Mann - 07/08/2018 3:47 PM CDTAssociated Problem(s): Flutter Atrial (HCC) Rates in the 70s. Blood pressure stable. Continues on warfarin per order. documented in this encounter Plan of Treatment Not on filedocumented as of this encounter Visit Diagnoses Diagnosis Flutter Atrial (HCC) - Primary Thrombus Atrial (HCC) Hypertensive Heart Disease With Heart Fa ilure (HCC) Diabetes Mellitus Type 2 Without Complic ation (HCC) Migraine Headache Hyperlipidemia On Treatment Fibromyalgia Other Specified Anxiety Disorders Apnea Sleep Obstructive Gastroesophageal Reflux Disease Without Esophagitis Irregular Sleep-Wake Rhythm Disorder documented in this encounter Additional Health Concerns Assessment Noted Time PHQ-9 Depression Total Score: 05/04/2013 4:05 PM CS T documented as of this encounter Care Teams Control Center Operator Relationship Specialty Start Date End Date Vianney Barrera APRN, C.N.P., PCP - General Internal Medicine 07/06/18 07/26/18 M.S.N. [address] [place] [address] documented as of this encounter
--- OUTSIDE RECORDS SUMMARY | 2021-12-27 05:24 | XMS_ITS | Encounter Summary ---
:1955 Author Organization [facility] Address [address] [place] [address] Care Team Providers Name Role Phone Vianney Barrera APRN, C.NMarcel., M.S.N. Primary Care Provider [phone] Reason for Visit Reason Comments Anticoagulation Encounter Details Date Type Department Care Team Description 07/13/2018 Documentation Division of Community Bruce, Vianney Caballero APRN , Anticoagulation Internal Medicine, C.N.P., M.S.N . [facility] in [address] [place] [id number] [place] [phone] Social History Tobacco Use Types Packs/Day Years [...] do you attend anabaptist or Never 2018 orthodox services? Do you [...] Notes Vianney Barrera APRN, C.N.P., M.S.N. - 07/13/2018 4:09 PM CDT REFERRAL SOURCE Estelle Oquendo CHIEF [...] 3.7 Hold today, then 3.5 mg daily RECHECK INR: 07/15/2018; POC at [facility] documented in this encounter Plan of Treatment Not on filedocumented as of this encounter Visit Diagnoses Not on filedocumented in this encounter Additional Health Concerns Assessment Noted Time PHQ-9 Depression Total Score: 11 05/04/2013 4:05 PM CS T documented as of this encounter Care Teams Complementary Health Therapists Relationship Specialty Start Date End Date Vianney Barrera APRN, C.N.P., PCP - General Internal Medicine 07/06/18 07/26/18 M.S.N. [address] [place] [address] documented as of this encounter
--- OUTSIDE RECORDS SUMMARY | 2021-12-27 05:24 | XMS_ITS | Encounter Summary ---
:1955 Author Organization [facility] Address [address] [place] [address] Care Team Providers Name Role Phone Vianney Barrera APRN, C.N.P., M.S.N. Primary Care Provider [phone] Reason for Visit Reason Comments Anticoagulation Encounter Details Date Type Department Care Team Description 07/09/2018 Documentation Division of [facility] Internal Medicine, Roym Fernández APRN, [facility], in C.N.P. [place], [place] [address] [place] [phone] Social History Tobacco Use Types Packs/Day [...] or relatives? How often do you attend pentecostalism or Never 2018 oriental orthodox services? Do you belong to any clubs or No 02/26/2019 organizations such as pentecostalism groups, unions, fraternal or athletic groups, or [...] Progress Notes Romy Steiner, NO, C.N.P. - 07/09/2018 2:39 PM CDT REFERRAL SOURCE Estelle Fidelmurali CHIEF COMPLAINT [...] p.o. Daily 07/09/2018 2.9 4.5 mg p.o. daily RECHECK INR: 07/13/2018; POC at [facility] documented in this encounter Plan of Treatment Not on filedocumented as of this encounter Visit Diagnoses Not on filedocumented in this encounter Additional Health Concerns Assessment Noted Time PHQ-9 Depression Total Score: 11 05/04/2013 4:05 PM CS T documented as of this encounter Care Teams Garment Cutter Relationship Specialty Start Date End Date Vianney Barrera APRN, C.N.P., PCP - General Internal Medicine 07/06/18 07/26/18 M.S.N. [address] [place] [phone] documented as of this encounter
--- OUTSIDE RECORDS SUMMARY | 2021-12-27 05:24 | XMS_ITS | Encounter Summary ---
:1955 Author Organization [facility] Address [address] [place] [address] Care Team Providers Name Role Phone Vianney Barrear APRN, C.N.P., M.S.N. Primary Care Provider [phone] Reason for Visit Reason Comments Anticoagulation Encounter Details Date Type Department Care Team Description 07/17/2018 Documentation Division [facility] Internal Medicine, Romy Fernández APRN, [facility], in C.N.P. [place], [place] [address] [place] [phone] Social History Tobacco Use Types Packs/Day [...] do you attend religious or Never 2018 gnosticist services? Do you [...] Progress Notes Romy Steiner, NO, C.N.P. - 07/17/2018 4:15 PM CDT REFERRAL SOURCE Estelle Fidelmurali CHIEF [...] daily 07/17/2018 2.3 4 mg p.o. daily RECHECK INR: 07/20/2018; POC at [facility] documented in this encounter Plan of Treatment Not on filedocumented as of this encounter Visit Diagnoses Not on filedocumented in this encounter Additional Health Concerns Assessment Noted Time PHQ-9 Depression Total Score: 11 05/04/2013 4:05 PM CS T documented as of this encounter Care Teams Per Diem Relationship Specialty Start Date End Date Vianney Barrera APRN, C.N.P., PCP - General Internal Medicine 07/06/18 07/26/18 M.S.N. [address] [place] [address] documented as of this encounter
--- OUTSIDE RECORDS SUMMARY | 2021-12-27 05:24 | XMS_ITS | Encounter Summary ---
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 Do you belong to any clubs or No 02/26/2019 organizations such as lutheran groups, unions, fraGift Card Combo or athletic groups, or school groups? How [...] Sign Reading Time Taken Comments Blood Pressure 100/67 10/20/2018 9:45 AM CDT Pulse 50 10/20/2018 9:55 AM CDT Temperature - - Respiratory Rate 14 10/20/2018 9:55 AM CDT Oxygen Saturation 96% 10/20/2018 9:55 AM CDT Inhaled Oxygen Concentration - - Weight 94.4 kg (208 lb 1.8 oz) 10/20/2018 8:17 AM CDT Height 165 cm (5' 4.96) 10/20/2018 8:17 AM CDT Body Mass Index 34.67 10/20/2018 8:17 AM CDT documented in this encounter Medications [...] Diagnosis Comme nts (MICHAEL) 2D WITH Routine 10/20/2018 10:35 AM Flutter Atri al (HCC) Results for this COLOR, LIMITED CDT Thrombus Atrial procedure are in DOPPLER AND (HCC) the results CONTRAST Acute On Chronic section. Combined Systolic (Congestive) And Diastolic (Congestive) Heart Failure (HCC) documented in this encounter Results (MICHAEL) 2D WITH COLOR, LIMITED DOPPLER AND CONTRAST (10/20/2018 10:35 AM CDT) P athologist Signature Ejection 45 MC CV EIMS Fraction Anatomical Region Laterality Modality Echocardiography Specimen (Source) Anatomical Collection Method Collection Time Re ceived Time Location / / Volume Laterality 10/20/2018 8:14 AM CDT Narrative 10/20/2018 4:10 PM CDT For the complete report, see the Order-L evel Documents below. Final Impressions 1. The left atrial appendage thrombus is no longer seen. There is spontaneous echo contrast in the left atrial appendage as well as a t iny mobile mass which has similar tissue density to the surrounding myocardium. Differential inc ludes tiny organized thrombus vs normal left atrial appendage trabeculation. 2. Left atrial appendage emptying veloci ty 31 cm/sec. 3. No vwajx-jd-opqw shunt at atrial leve l at rest or with Valsalva release. 4. No regional wall motion abnormalities . 5. Estimated left ventricular ejection f raction 45 % by visual estimate. 6. Compared to the report of 07/01/2018 the following changes have occurred: Multilobulated mass in left atrial appendage is no long er present. Tiny mobile mass in its place is seen, cannot rule out residual thrombus. ??Clark e by side comparison of images performed. Findings PRE-SEDATION ASSESSMENT & CONSENT ??The goals, risks and alternatives to moderate sedation and the transesophageal echo were explained to the patient, questions were answered and consent was given to proceed. ??The physician review ed the patient's history, medication list, allergies, and review of systems and also performed a pertinent examination including a heart, airway and lung assessment. ??Mallampati Assessment : Class II. ??Sedation plan: Transesophageal echo - moderate sedation. ??ASA physical status score: Class II. ??The patient's identity and all needed equipment were confirmed and a final con firmatory pause was performed by the team immediately prior to start. ??LEFT VENTRICLE: ??Left ventricular enlargement. ??Estimated left ventricular ejection fraction 45 % by visual estimat e. ??No regional wall motion abnormalities. ??RIGHT VENTRICLE: ??Mild right ventricular enla rgement. ??Mild decrease in right ventricular systolic function. ??ATRIA: ??Severe left atrial enlargement. ??Normal left atrial appendage. ??No left atrial appendage thrombus. ??Normal righ t atrial size. ??CARDIAC VALVES: ??Trileaflet aortic valve. ??Thickened aortic valve. ??Mild aortic valve regurgitation. ??Thickened mitral valve. Mild-moderate mitral valve regurgitation . ??Pulmonary valve not well visualized. ??Thickened tricuspid valve. ??Moderate tricuspid va lve regurgitation. ??OTHER ECHO FINDINGS: ??Mild immobile atherosclerosis of the descending thorac ic aorta. ??Normally connected pulmonary veins. ??Normal superior vena cava. ??Agitated saline in jection(s) performed during sedation. ??No ptucf-mm-skoz shunt at atrial level at rest or with Va lsalva release. ??The left atrial appendage thrombus is no longer seen. A tiny mobile echodensit y is now seen which has similar tissue density to the surrounding myocardium. Differential inc ludes tiny organized thrombus vs normal left atrial appendage trabeculation. ??No pericardia l effusion. ??PROCEDURE ??Transesophageal echocardiogram performed at the request of the primary supervisor gate services. ??Adult probe inserted without difficulty. ??Procedure performed with a ppropriate level of sedation. ??A trained independent observer assisted with monitoring the pa tient's level of consciousness and physiologic status throughout the procedure, see nursing do cumentation. ??Physician signature for procedural medications and patient discharge when D C criteria met. ??The patient tolerated the sedation and procedure well and was released awake, a lert, and in good condition. ??See Sedation Narrator or other pertinent record in [facility] for addit ional procedure and sedation information. Transesophageal echocardiogram completed without complications. For the complete report, see the Order-L evel Documents below. See PDF For Result Procedure Note Evans Harris M.B.B.S. - 10/20/2018Fo rmatting of this note might be different from the original. For the complete report, see the Order-L evel Documents below. Final Impressions 1. The left atrial appendage thrombus is no longer seen. There is spontaneous echo contrast in the left atrial appendage as well as a t iny mobile mass which has similar tissue density to the surrounding myocardium. Differential inc ludes tiny organized thrombus vs normal left atrial appendage trabeculation. 2. Left atrial appendage emptying veloci ty 31 cm/sec. 3. No aemck-il-zrir shunt at atrial leve l at rest or with Valsalva release. 4. No regional wall motion abnormalities . 5. Estimated left ventricular ejection f raction 45 % by visual estimate. 6. Compared to the report of 07/01/2018 the following changes have occurred: Multilobulated mass in left atrial appendage is no long er present. Tiny mobile mass in its place is seen, cannot rule out residual thrombus. Side by side comparison of images performed. Findings PRE-SEDATION ASSESSMENT & CONSENT The go als, risks and alternatives to moderate sedation and the transesophageal echo were explained to the patient, questions were answered and consent was given to proceed. The physician reviewed the patient's history, medication list, allergies, and review of systems and also performed a pertinent examination including a heart, airway and lung assessment. Mallampati Assessment: Class II. Sedation plan: Transesophageal echo - moderate sedation. ASA physical status s core: Class II. The patient's identity and all needed equipment were confirmed and a final con firmatory pause was performed by the team immediately prior to start. LEFT VENTRICLE: Left justo tricular enlargement. Estimated left ventricular ejection fraction 45 % by visual estimat e. No regional wall motion abnormalities. RIGHT VENTRICLE: Mild right ventricular enlarg ement. Mild decrease in right ventricular systolic function. ATRIA: Severe left atrial enla rgement. Normal left atrial appendage. No left atrial appendage thrombus. Normal right atrial size. CARDIAC VALVES: Trileaflet aortic valve. Thickened aortic valve. Mild aort ic valve regurgitation. Thickened mitral valve. Mild-moderate mitral valve regurgitation . Pulmonary valve not well visualized. Thickened tricuspid valve. Moderate tricuspid valv e regurgitation. OTHER ECHO FINDINGS: Mild immobile atherosclerosis of the descending thorac ic aorta. Normally connected pulmonary veins. Normal superior vena cava. Agitated saline inje ction(s) performed during sedation. No plgdl-op-hihg shunt at atrial level at rest or with Va lsalva release. The left atrial appendage thrombus is no longer seen. A tiny mobile echodensit y is now seen which has similar tissue density to the surrounding myocardium. Differential inc ludes tiny organized thrombus vs normal left atrial appendage trabeculation. No pericardial effusion. PROCEDURE Transesophageal echocardiogram performed at the request of the primary supervisor gate services. Adult probe inserted without difficulty. Procedure performed with reginaldo ropriate level of sedation. A trained independent observer assisted with monitoring the pa tient's level of consciousness and physiologic status throughout the procedure, see nursing do cumentation. Physician signature for procedural medications and patient discharge when D C criteria met. The patient tolerated the sedation and procedure well and was released awake, a lert, and in good condition. See Sedation Narrator or other pertinent record in [facility] for addit ional procedure and sedation information. Transesophageal echocardiogram completed without complications. For the complete report, see the Order-L jennifer Documents below. See PDF For Result Porfirio Villegas M.D. 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) documented in this encounter Administered Medications Inactive Administered Medications - up to 3 most recent administrations Medication Order MAR Action Action Date Dose Rate Site fentaNYL injection (SUBLIMAZE) Given 10/20/2018 10:07 AM CDT 25 mcg Code/trauma/sedation medication, Starting on Fri10/20/18 at 0944 Given 10/20/2018 9:48 AM CDT 25 mcg Given 10/20/2018 9:44 AM CDT 25 mcg lidocaine 5 % ointment 1 application Given 10/20/2018 9:30 A M CDT 1 application (XYLOCAINE) 1 application, mouth/throat, As needed, mild pain or score 1-3 of 10, See protocol, Starting on Fri10/20/18 at 0819, MAX of 20 g of ointment/day midazolam (PF) injection (VERSED) Given 10/20/2018 10:05 AM CDT 1 mg Code/trauma/sedation medication, Starting on Fri10/20/18 at 0944 Given 10/20/2018 9:48 AM CDT 1 mg Given 10/20/2018 9:44 AM CDT 2 mg sodium chloride 0.9 % injection 3 mL Given 10/20/2018 10:35 AM CDT 3 mL 3 mL, intravenous, Every 12 hours scheduled, First dose on Fri10/20/18 at 0900, Peripheral Intravenous Catheter and Rapid Infusion Catheter, when no infusion to maintain patency sodium chloride 0.9 % injection 5 mL Given 10/20/2018 10:18 AM CDT 20 mL 5 mL, intravenous, As needed, line care, for agitated saline (bubble) studies, Starting on Fri10/20/18 at 0819, See protocol documented in this encounter Additional Health Concerns Assessment Noted Time PHQ-9 Depression Total Score: 11 05/04/2013 4:05 PM CS T documented as of this encounter Care Teams Cash Application Clerk Relationship Specialty Start Date End Date Elsewhere, Pcp PCP - General Internal Medicine 07/27/18 documented as of this encounter
--- OUTSIDE RECORDS SUMMARY | 2021-12-27 05:24 | XMS_ITS | Encounter Summary ---
:1955 Author Organization [facility] Address [address] [place] [id number] Care Team Providers Name Role Phone Vianney Barrera APRN, C.NJordy, M.S.N. Primary Care Provider [phone] Encounter Details Date Type Department Care Team Description 07/23/2018 External Outreach Division of Diana Gabriel Flucaitliner Atrial ([facility]); [facility] D, P.A.-C. Hypertensive Heart Disease With Heart Fa ilure ([facility]); [facility] [address] [place] [address] Thrombus Atrial ([facility]) [facility], in [facility] [address] [place] [phone] [place] [address] (Work) [place], [place] [phone] (Fax) [phone] Social History Tobacco Use Types Packs/Day Years [...] do you attend baptism or Never 2018 druze services? Do you [...] documented as of this encounter Progress Notes Diana Gabriel P.A.-C. - 07/23/2018 2:13 PM CDT REFERRAL [facility] CHIEF COMPLAINT/PURPOSE OF VISIT Discharge from [facility] (Short-term rehab) HISTORY OF PRESENT ILLNESS Ms. Metcalf is a 63 y.o. woman, recently hospitalized June 29 - 2018, related to recurrent atrial flutter. Patient discharged to [facility] for short-term rehabilitation. Patient has now completed goals of therapy and is planning to discharge back to her home in [place] on July 25, 2018. #1 Flutter Atrial (HCC) Overview: -admitted at the [facility] from 06/22/2018 - 06/23/2018, where she was treatedfor atrial fibrillation/flutter with diltiazem drip and self converted to sinus rhythm; her metoprolol increased to 100 mg b.i.d. and she was dismissed. During her follow-up visit, she was noted to have recurrent atrial flutter. ?? -Electrocardiogram obtained revealed atrial flutter with ventricular [...] (HCC) Overview: On warfarin as noted above. INR scheduled to be rechecked on 07/24/18, prior to her discharge and doseadjustment will be made as warranted for goal INR 2.5 - 3.5. #3 Hypertensive Heart Disease With Heart Failure (HCC) Overview: Echo 07/01/2018: Final Impressions 1. Left atrial appendage thrombus. ??Multilobulated mass with mobile components (clips 45-49). Spotaneous echo contrast. 2. Moderate left ventricular enlargement. ??Estimated ejection fraction 45%. 3. Mild-moderate mitral valve regurgitation. 4. Moderate tricuspid valve regurgitation. 5. Severe bi-atrial enlargement. ??*She is on losartan, in addition to diltiazem and metoprolol. #4 Functional status Per Physical and Occupational Therapy: Currently, patient is independent with use of front-wheeled walker. She is independent in her room with dressing, toileting and grooming tasks. Recommend supervision for bathing upon discharge to home. Recommend shower bench at home for safety. Cognitive scores: TEX 12/13 (normal = 17). Recommend continued in-home OT for safety awareness, cardiovascular tolerance and medical monitoring. ALLERGIES/ADVERSE REACTIONS No Known Allergies PHYSICAL EXAM General: Very pleasant 63 y.o. woman, half seated, half lying comfortably in bed, in no apparent pain or acute respiratory distress. Alert and oriented to person, place and time. Cooperative and conversant. Speech is mumbled, slow, with patient stopping frequently mid-sentence. She avoids eye contact,keeping her eyes closed initially for the first half of the visit. Flat/dulled affect. Skin: Warm and dry without concerning rash. IMPRESSION/REPORT/PLAN #1 Atrial flutter #2 Atrial thrombus #3 Hypertensive Heart Disease with Heart Failure #4 Disposition Ms. Metcalf is currently stable. She is scheduled to discharge back to her home in [place], [place] on 07/24/18, where she resides with her ex-boyfriend/roommate and older son. She does appear worried asshe has asked her roommate to stop smoking and he has refused, therefore, she states she will need to find a new home. Patient will be dismissed with open bottle medications. She will be provided with written scripts for the following medications: Coumadin, diltiazem and losartan. INR will be rechecked on 07/24/18, with further dosing instructions as warranted for INR goal 2.5-3.5 She was also providedwith a written script for a front-wheeled walker. Have asked the facility [facility] to set the patient up with home health services/OT prior to her discharge, as patient did not appear to be cognizant of the providers for these services. Did stress the importance of following up with both the in-home OT as recommended, and followup with PCP. Recommend patient followup with her primary care provider at [facility] in approximately 2 weeks for continued care. Did encourage the patient to set this appointment up prior to her discharge date. Patient will need to resume previous anticoagulation management. Otherwise, continue current plan of care as directed. Future Appointments Date Time Provider Department Center 08/10/2018 9:00 AM Ana Maria Aburto APRN, C.N.P., M.S.N. [facility] Spec PATIENT EDUCATION: Ready to learn; learning preferences include listening. Explained diagnosis and treatment plan; patient and caregiver expressed understanding of the content. Billing code DDMN: >30 minutes required for counseling and coordination of care. documented in this encounter Miscellaneous Notes Addendum Note - Diana Gabriel P.A.-C. - 07/23/2018 2:13 PM CDT Addended by: DIANA GABRIEL on: 07/23/2018 02:51 PM Modules accepted: Orders documented in this encounter Plan of Treatment Not on filedocumented as of this encounter Visit Diagnoses Diagnosis Flutter Atrial (HCC) Hypertensive Heart Disease With Heart Fa ilure (HCC) Thrombus Atrial (HCC) documented in this encounter Additional Health Concerns Assessment Noted Time PHQ-9 Depression Total Score: 11 05/04/2013 4:05 PM CS T documented as of this encounter Care Teams Miter Sawyer Relationship Specialty Start Date End Date Vianney Barrera APRN, C.N.P., PCP - General Internal Medicine 07/06/18 07/26/18 M.S.N. [address] [place] [address] documented as of this encounter
--- OUTSIDE RECORDS SUMMARY | 2021-12-27 05:24 | XMS_ITS | Encounter Summary ---
:[address] [facility] Address [address] [place] [address] Care Team Providers Name Role Phone Elsewhere, Pcp Primary Care Provider Unavailable Reason for Referral Outpatient (Routine) - Closed Specialty Diagnoses / Referred By Referred To Cont act Procedures Contact Gastroenterology and Diagnoses Abnormal Liver Function Test [facility] Hepatology Bess Monroy [address] [place] [address] Referral ID Status Reason Start Date Expiration Date Visits Requ ested Visits Authorized [id number] Closed 10/21/2018 10/21/2019 1 1 Reason for Visit Outpatient (Routine) - Closed Specialty Diagnoses / Procedures Referred By Contact Refer red To Contact Cardiovascular Disease Nelly [place] Guanaco Monroy M.D. [address] [place] [address] Referral ID Status Reason Start Date Expiration Date Visits Requ ested Visits Authorized [id number] Closed 09/14/2018 09/14/2019 1 1 Encounter Details Date Type Department Care Team Description 10/21/2018 Office Visit Department of Nelly Flutter Atrial (HCC) (Primary Dx); Cardiovascular Medicine Ayaka Monroy ormal Liver Function Test in Clarissa Velasco M.D. [address] [facility] [address] [place] [address] [place], [place] [phone] Social History Tobacco Use Types Packs/Day Years [...] do you attend jain or Never 2018 amish services? Do you belong to any clubs [...] documented as of this encounter Progress Notes Porfirio Villegas M.D. - 10/21/2018 1:00 PM CDT SUBJECTIVE I had the pleasure of seeing Ms. Metcalf in followup in the [facility]. She was last seen in this clinic on September 14, 2018. In brief, she is a 63-year-old woman with history of atrial flutter diagnosed in the summer of 2017, hypertension, hyperlipidemia, type 2 diabetes, sleep apnea, mitral re gurgitation, and personality disorder. She was treated with Xarelto and diltiazem initially and was noted to have a borderline LV systolic dysfunction with EF 47%, presumably due to a component of tachycardia-induced cardiomyopathy. She has also been known to have moderate-severe mitral regurgitation.She had a most recent admission to [facility] in June for recurrent atrial flutter and RVR. At the time a cardioversion was planned but MICHAEL showed a left atrial appendage thrombus. She was transitioned off of Xarelto to warfarin with a goal INR of 2.5 to 3.5. There was at that time a concern for medication noncompliance with Xarelto. In the meantime, she has transitioned to a long-term care facility with supervision of her medications and overall care. When we saw her in this clinic a month ago, she was noted to have good rate control and without any direct symptoms related to the atrial flutter other than the concern for tachycardia-induced cardiomyopathy and heart failure. She did indeed have symptoms for volume overload clinically. We initiated Lasix 20 mg daily with which she has experienced significant diuretic response and her lower extremityedema has improved significantly. I have also received several therapeutic INR values from her care facility over the last month. She was seen today in the Heart Failure Clinic, and we appreciate the consultation. Education was provided. No medication changes were made. Ms. Metcalf also had repeat MICHAEL, which now shows essentially resolution of the left atrial appendage thrombus, however, there is spontaneous echo contrast in the left atrial appendage and tiny mobile mass which has similar tissue density to the surrounding myocardium with differential including tiny organized thrombus versus normal left atrial appendage trabeculation. Of note, the echocardiogram wasperformed in sinus rhythm. It is unclear when she converted to sinus rhythm as she is not aware of her arrhythmia. Her LVEF by TTE is now 55%. Holter monitor from yesterday shows junctional rhythm converting to sinus rhythm at 4:04 p.m. on theday of the recording. She remained in sinus rhythm until the end of the recording with her heart rate varying from 40 beats per minute (junctional) to 73 beats per minute (sinus) with average heart rate of 58 beats per minute. Her labs today are notable for creatinine 1.4, with otherwise normal electrolytes. She does have a rather abrupt elevation of her ALT, AST, and alkaline phosphatase at 158, 224, and 213, respectively. Bilirubin is normal. Her INR today is 2.3. PHYSICAL EXAMINATION General: Alert, oriented, well appearing, no distress. Lungs: Clear to auscultation bilaterally. Heart: Regular rate and rhythm with occasional ectopy. Normal S1, S2; 3/6 holosystolic murmur at theapex. Extremities: 1+ pretibial and pedal edema, improved from prior examination. ASSESSMENT / PLAN #1 Atrial flutter, status post spontaneous cardioversion #2 Tachycardia-induced cardiomyopathy, resolved #3 Mitral regurgitation #4 Left atrial appendage thrombus, mostly resolved with concern for residual tiny thrombus versus normal LA appendage tissue #5 Left atrial enlargement #6 Hypertension #7 Hyperlipidemia #8 Type 2 diabetes #9 [place] #10 Personality disorder Ms. Metcalf has spontaneously converted to sinus rhythm. She has junctional rhythm and sinus bradycardia on Holter monitoring. We will discontinue her diltiazem at this point and will reassess her rhythm during followup with a repeat Holter in 6 months. She does not appear to be symptomatic from the b radycardia, and I anticipate that this will likely improve with withdrawal of the diltiazem. I discussed the importance of continued anticoagulation with warfarin with routine INR monitoring given her history of left atrial appendage thrombus. Of note, there is a concern for residual tiny thrombus which could not be ruled out on yesterday's MICHAEL, and this will have to be accounted for if she has recurrent atrial arrhythmia and requires cardioversion or other rhythm control approach in the future. The patient should also continue with her routine Lasix with monthly BMP, particularly to assess herrenal function since her creatinine has increased slightly today compared to most recent value. I note that she has a rather abrupt LFT elevation, as these were normal in June 2018. This could represent liver congestion, but that would be quite surprising given the overall improvement in her volume status over the last month. I recommended complete discontinuation of Tylenol, which seems to be on her regular medication regimen at her care facility. I also recommended complete discontinuation/avoidance of any other medications with potential hepatotoxic effect. We will make a referral to Hepatology with a pre-appointment abdominal ultrasound. I will see the patient in followup in 6 months with a pre-appointment Holter monitor to reassess herrhythm. I printed the above recommendations and provided the patient with a copy for her to take to her care facility. documented in this encounter Plan of Treatment Scheduled Referrals Name Type Priority Associated Order Schedule Diagnoses Gastroenterology and Outpatient Routine Abnormal Liver Expec carmine: Hepatology - Hepatology Referral Function Test consult (clinic) (Approximat e), Expires: 10/21/2021 documented as of this encounter Results (ABNORMAL) CMP [...] >=60 11/25/2018 Black/ mL/min/BSA 12:49 PM CDT [place] Comment: ----ADDITIONAL INFORMATION---- Estimated GFR calculated using [...] Organization Address City/State/ZIP Code Phon e Number [facility] - [address] [place], [place] [address] [place] (ABNORMAL) Hepatic Function Panel (11/25/2018 11:07 AM CDT) [facility] Method Time Signature Bilirubin, Total, S 0.4 [...] Organization Address City/State/ZIP Code Phon e Number [facility] - [address] [place], [place] [address] [place] (ABNORMAL) PT (Prothrombin Time) with INR (11/25/2018 11:07 AM CDT) [facility] Method Time Signature Prothrombin 38.4 (H) 9.4 [...] M.D. LAB BLOOD ADD-ON Performing Organization Address [facility]/ZIP Code Phon e Number [facility] - [address] (ABNORMAL) CBC without Differential (11/25/2018 11:07 AM CDT) [facility] gist Method Time Signature Hemoglobin 14.8 11.6 - [...] M.D. LAB BLOOD ADD-ON Performing Organization Address City/[facility]/ZIP Code Phon e Number [facility] - [address] US Abdomen Complete (11/25/2018 10:35 AM CDT) Anatomical Region Laterality Modality Abdomen, Ultrasound RST LOS, Ultrasound ARZ LOS, Ultrasound FLA N/A Ultrasound LOS Specimen (Source) Anatomical Collection Method Collection Time Re ceived Time Location / / Volume Laterality 11/25/2018 10:43 AM CDT Impressions 11/25/2018 10:46 AM CDT 1. Severe diffuse hepatic steatosis. Narrative 11/25/2018 10:46 AM CDT EXAM: US ABDOMEN COMPLETE COMPARISON: ?? None. FINDINGS: Liver: Diffuse increased echogenicity co nsistent with hepatic steatosis. ??No focal hepatic lesion. Gallbladder: Absent. Intrahepatic ducts: Not dilated. Common duct: Not dilated. Pancreas: Normal where seen. Right kidney: ?? Length:11.6 cm. Normal echogenicity. No hydronephrosis. Left kidney: ?? Length:11.4 cm. Normal echogenicity. No hydronephrosis. Spleen: Normal. ??Spleen length:8.8 cm Aorta: Normal caliber. Moderate atherosc lerosis. IVC: Normal where seen. Ascites: ??None. Procedure Note Vijay Paniagua M.D. - 11/25/2018 EXAM: US ABDOMEN COMPLETE COMPARISON: None. FINDINGS: Liver: Diffuse increased echogenicity co nsistent with hepatic steatosis. No focal hepatic lesion. Gallbladder: Absent. Intrahepatic ducts: Not dilated. Common duct: Not dilated. Pancreas: Normal where seen. Right kidney: Length:11.6 cm. Normal echogenicity. No hydronephrosis. Left kidney: Length:11.4 cm. Normal echogenicity. No hydronephrosis. Spleen: Normal. Spleen length:8.8 cm Aorta: Normal caliber. Moderate atherosc lerosis. IVC: Normal where seen. Ascites: None. IMPRESSION: 1. Severe diffuse hepatic steatosis. Porfirio Villegas M.D. IMG US PROCEDURES documented in this encounter Visit Diagnoses Diagnosis Flutter Atrial (HCC) - Primary Abnormal Liver Function Test Abnormal Liver Function Test documented in this encounter Additional Health Concerns Assessment Noted Time PHQ-9 Depression Total Score: 05/04/2013 4:05 PM CS T documented as of this encounter Care Teams District Branch Manager Relationship Specialty Start Date End Date Elsewhere, Pcp PCP - General Internal Medicine 07/27/18 documented as of this encounter
--- OUTSIDE RECORDS SUMMARY | 2021-12-27 05:24 | XMS_ITS | Encounter Summary ---
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 How often do you attend caodaism or Never 2018 yazdanism services? Do you belong to any clubs or No 02/26/2019 organizations such as caodaism groups, unions, fraternal or athletic groups, or [...] this encounter Miscellaneous Notes Telephone Encounter - Antelmo Richey P.A.-C. - 09/01/2018 4:02 PM CDT Called patient's son Ramin regarding directions on medical management of his mother. Please note that Ms. Metcalf [facility]. At that time, she was admitted with atrial flutter and was noted to have intracardiac thrombus. The plan was to proceedwith a flutter ablation, but this was not compatible with intracardiac thrombus. The thrombus was noted despite patient being on Xarelto. As a result, Xarelto was discontinued and she was dismissed on Coumadin with a target INR between 2.5 to 3.5. Rates were managed with diltiazem and metoprolol tartrate. The son came here on the floor on 08/29/2018 regarding follow-up care for his mother. He reported that the patient was readmitted at the local hospital and he was looking for transfer here for previously discussed aflutter ablation. Today, this provider did relay information regarding the dismissal summary since he is the guardian/POA and actively participating on patient's care. The plan was to consider an ablation once the intracardiac thrombus had resolved. Informed the patient to ensure that thepatient's rate was well under control and she was not in atrial flutter/fibrillation or any concerning arrhythmia. Also, reported to the son that it would be prudent that a transesophageal echocardiogram be obtained to ensure that the intracardiac thrombus resolved. He suspects that the mother/patientcontinues to take Coumadin for anticoagulation. If the patient's rates are not well under control orif still in atrial flutter and there is no intracardiac thrombus, then I informed the son that it will be reasonable to request for a transfer here if needed for a previously discussed ablation as discussed before on the dismissal summary. He verbalized understanding of this plan moving forward. documented in this encounter Plan of Treatment Not on filedocumented as of this encounter Visit Diagnoses Not on filedocumented in this encounter Additional Health Concerns Assessment Noted Time PHQ-9 Depression Total Score: 11 05/04/2013 4:05 PM CS T documented as of this encounter Care Teams Rn Psychiatric Relationship Specialty Start Date End Date Elsewhere, Pcp PCP - General Internal Medicine 07/27/18 documented as of this encounter
--- OUTSIDE RECORDS SUMMARY | 2021-12-27 05:24 | XMS_ITS | Encounter Summary ---
:[address] 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) [facility] Cardiovascular Disease Luan Monroy [address] [place] [address] Referral ID Status Reason Start Date Expiration Date Visits Requ ested Visits Authorized [id number] Closed 09/14/2018 09/14/2019 1 1 Encounter Details Date Type Department Care Team Description 10/21/2018 Comprehensive Visit Department of Javier Kaiser Acute O n Chronic Combined Systolic (Congestive) And Diastolic (Congestive) Heart Failure (HCC) (Primary Dx); Cardiovascular [facility] Apnea Sleep Obstructive; Medicine in [address] Flutter Atrial (HCC); [facility] Hypertensive Heart Disease With Heart Fa ilure (HCC); [address] [facility], Thrombus Atrial (HCC); [facility] Diabetes Melli tus Type 2 Without Complication (HCC); [id number] Hyperlipidemia On Treatment; [phone] Other Dyspnea (Work) Social History Tobacco Use Types Packs/Day Years [...] do you attend pentecostalism or Never 2018 nondenominational services? Do you [...] Sign Reading Time Taken Comments Blood Pressure 116/67 10/21/2018 9:08 AM CDT Pulse 51 10/21/2018 9:09 AM CDT Temperature - - Respiratory Rate - - Oxygen Saturation - - Inhaled Oxygen Concentration - - Weight 93.4 kg (205 lb 14.6 oz) 10/21/2018 9:05 AM CDT Height 166 cm (5' 5.35) 10/21/2018 9:05 AM CDT Body Mass Index 33.89 10/21/2018 9:05 AM CDT documented in this encounter Consult Notes Javier Kaiser M.D. - 10/21/2018 9:15 AM CDT REFERRAL SOURCE Porfirio Villegas M.D. CHIEF COMPLAINT / REASON FOR VISIT Heart failure HISTORY OF PRESENT ILLNESS I interviewed and examined Ms. Metcalf and reviewed management plans with Dr. Degroot. I agree with thefindings in his note dated October 21, 2018. She is followed in Heart rhythm Service because of symptomatic atrial flutter and left atrial appendage thrombus. An echocardiogram was done outside of our system at her initial presentation last summer. When she was last seen in rhythm consultation, edema was noted and referral to Heart failure Clinic was arranged. Other pertinent diagnoses include hypertension, hyperlipidemia, type 2 diabetes, sleep apnea, mitral valve regurgitation. Because of concerns about compliance, she has been institutionalized in an adult facility in conjunction with hospital to make sure that she gets appropriate diet and medications. Her plan in the intermediate term is going to be to move to an assisted living facility. She denies any leg edema. MEDICATIONS Current Medications: ??? acetaminophen (TYLENOL) 325 mg tablet, Take 650 mg by mouth every 6 (six) hours. ??? albuterol (PROAIR HFA) 90 mcg/actuation inhaler, Inhale 1-2 puffs every 4 (four) hours as neededfor shortness of breath. ??? aspirin 325 mg tablet, Take 325 mg by mouth daily. ??? clotrimazole-betamethasone (LOTRISONE) 1-0.05 % cream, Apply 1 application topically 2 (two) times a day. ??? dilTIAZem CD (CARDIZEM CD/CARTIA XT) 360 mg 24 hr capsule, Take 360 mg by mouth daily. ??? DULoxetine (CYMBALTA) [address] capsule, Take 1 capsule (30 mg total) by mouth 2 (two) times a day. For Fibromyaligia ??? ferrous sulfate 325 mg (65 mg iron) DR tablet, Take 1 tablet (65 mg of iron total) by mouth daily. For anemia ??? fluticasone furoate (ARNUITY ELLIPTA) 100 mcg/actuation diskus inhaler, Inhale 1 puff daily. Asthma ??? levothyroxine (SYNTHROID, LEVOTHROID) 25 mcg tablet, Take 25 mcg by mouth every morning before breakfast. ??? losartan (COZAAR) 50 mg tablet, Take 1 tablet (50 mg total) by mouth daily. For hypertension. ??? metFORMIN (GLUCOPHAGE) 500 mg tablet, Take 1 tablet (500 mg total) by mouth 2 (two) times a day with meals. For Diabetes Mellitus ??? metoprolol tartrate (LOPRESSOR) 50 mg tablet, Take 2 tablets (100 mg total) by mouth 2 (two) times a day. For heart rate control. ??? nitroglycerin (NITROSTAT) 0.4 mg SL tablet, Place 0.4 mg under the tongue every 5 (five) minutesas needed for chest pain. ??? pantoprazole (PROTONIX) 40 mg EC tablet, Take 1 tablet (40 mg total) by mouth daily. For GERD ??? rizatriptan (MAXALT) 5 mg tablet, Take 1 tablet (5 mg total) by mouth as needed for migraine. ??? simvastatin (ZOCOR) 20 mg tablet, Take 1 tablet (20 mg total) by mouth at bedtime. Hyperlipidemia ??? topiramate (TOPAMAX) 25 mg tablet, Take 1 tablet (25 mg total) by mouth 2 (two) times a day. Forheadaches. (Patient taking differently: Take 25 mg by mouth daily. For headaches. ) ??? warfarin (COUMADIN) 5 mg tablet, Take 1 tablet (5 mg total) by mouth daily. For left atrial thrombus; INR goal 2.5-3.5. Next INR check on 07/24/18, to take as directed with INR recheck week of 07/27/18, resume management as per previous homegoing care plan. No current facility-administered medications for this visit. PAST MEDICAL HISTORY Past Medical History: Diagnosis Date ??? Arthritis Rheumatoid (HCC) ??? Asthma NOS ??? Cataract ??? Degeneration Macular ??? Diabetes Mellitus NOS ??? Fibromyalgia ??? Gastroesophageal Reflux Disease NOS ??? Glaucoma ??? Irritable Bowel Syndrome Without Diarrhea ??? Migraine Headache ??? Osteoporosis ??? Sleep Apnea PAST SURGICAL HISTORY Past Surgical History: Procedure Laterality Date ??? SECTION ??? THERAPEUTIC SOCIAL HISTORY Social History Socioeconomic History ??? Marital status: [...] file Gets together: Not on file Attends nondenominational service: Not on file Active member of [...] lives with 1 son and an ex-boyfriend VITALS Blood Pressure: 116/67 Height: 166 cm Weight: 93.4 kg BMI (Calculated): 33.9 kg/m?? PHYSICAL EXAMINATION HEART: Her jugular veins are distended 2 cm above the clavicle while she is in the seated position. Waveforms are a retic consistent with her rhythm abnormality. LUNG: Normal respiratory effort and air movement. Clear to auscultation. EXTREM: Trace bilateral leg pitting edema. DIAGNOSTIC REVIEW LABS: The hemoglobin is normal as is the MCV but the RDW is increased. The platelet count is slightly increased as is the white cell count with a left shift. The INR is therapeutic at 2.3. Chemistries are notable for creatinine 1.5 with an estimated GFR of 39. Liver enzymes (transaminases and alkaline phosphatases) are increased. Protein studies are normal. TRANSESOPHAGEAL ECHO: The left atrial appendage thrombus is no longer seen but there is a tiny mass which is either appendage trabeculation or a tiny organized thrombus. HOLTER MONITOR: In progress ECHOCARDIOGRAM: We do not have an electrocardiogram but the rhythm in the echocardiogram appears to be sinus bradycardia with junctional escape/junctional bradycardia and occasional capture beats. The ejection fraction is maintained. The inferior vena cava is dilated with reduced inspiratory collapse. 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 There are too many other variables at play here for me to make concrete suggestions. Specifically, she has a very abnormal bradycardic rhythm on current medications and is going to have further decision making about rhythm management in a few hours. She currently is in a situation where food is provided toher so we have limitations in monitoring and regulating her salt. Her living circumstances going to change in the future where again food will be provided but she will have the opportunity of having food in her apartment. Whether she will need further instruction then is not clear. I considered increasing her furosemide dose but she already is bothered by polyuria. Because things could change with establishment of a more physiologic rhythm, I think this should just be reassessed down the road. I think she will likely have an echocardiogram done after what ever is done to her heart rhythm and her cava can be reassessed at that time. If it is merely a matter of regulating doses of furosemide, I would relegated that to local primary care providers as I do not believe she needs the services of the Heart failure Clinic for that. Javier Kaiser M.D. Maricel Degroot M.D. - 10/21/2018 9:15 AM CDT Cardiovascular Consult Note Referring Provider: Porfirio Villegas M.D. CHIEF COMPLAINT/REASON FOR CONSULT Heart failure with mildly reduced ejection fraction HISTORY OF PRESENT ILLNESS Ms. Iris Metcalf is a pleasant 63 y.o. female who has atrial fibrillation/flutter and presents for further evaluation of her heart failure. Patient was 1st diagnosed with atrial arrhythmia in September 2017. In late May/early June, patient was being evaluated locally and she was admitted to [facility] June 22 for AFib with RVR and tachycardia with heart rates in the 150s. Jury with no improvement she was started on diltiazem drip and heart rates 80-90 beats per minute. She had negative troponins and was initiated on Xarelto. She spontaneously converted back into sinus rhythm. She was on metoprolol 50 that was eventually increased to 200mg twice daily. Transthoracic echocardiogram at that time demonstrated ejection fraction of 47% withmoderate left atrial enlargement and moderate to severe mitral regurgitation juice discharge June. Patient was here at [facility] for an additional opinion when she was found to have an recurrence of her atrial flutter and admitted to the hospital from June 29 to July 06, 2018. That time, plan was for a MICHAEL guided cardioversion but she was found on the transesophageal echocardiogram to have a mobile left atrial appendage thrombus and thus ablation and cardioversion were canceled. She was switched from Xarelto to Coumadin with an INR goal 2.5-3.5. Ejection fraction was 45% at this time. Family history significant for father with coronary artery disease and 3 vessel CABG. Personal past medical history includes hypertension, hyperlipidemia, type 2 diabetes, and obstructive sleep apnea. Denies any tobacco or alcohol use. A myocardial perfusion scan December 03, 2017 demonstrated medium moderate reversible ischemia of the mid apical anterior and anterior septal zuluaga. Patient returns now further evaluation. S0 2 pillow orthopnea but no paroxysmal nocturnal dyspnea. Her lower extremity edema she states is significantly better and she is currently on Lasix 20 mg daily. Currently In normal sinus rhythm with sinus bradycardia and PACs based on very limited rhythm assessment from transthoracic echocardiogram images. Patient currently has Holter monitor in place. Medications the Patient Reported Taking acetaminophen (TYLENOL) 325 mg tablet albuterol (PROAIR HFA) 90 mcg/actuation inhaler aspirin 325 mg tablet clotrimazole-betamethasone (LOTRISONE) 1-0.05 % cream dilTIAZem CD (CARDIZEM CD/CARTIA XT) 360 mg 24 hr capsule DULoxetine (CYMBALTA) [address] capsule ferrous sulfate 325 mg (65 mg iron) DR tablet fluticasone furoate (ARNUITY ELLIPTA) 100 mcg/actuation diskus inhaler levothyroxine (SYNTHROID, LEVOTHROID) 25 mcg tablet losartan (COZAAR) 50 mg tablet metFORMIN (GLUCOPHAGE) 500 mg tablet metoprolol tartrate (LOPRESSOR) 50 mg tablet nitroglycerin (NITROSTAT) 0.4 mg SL tablet pantoprazole (PROTONIX) 40 mg EC tablet rizatriptan (MAXALT) 5 mg tablet simvastatin (ZOCOR) 20 mg tablet topiramate (TOPAMAX) 25 mg tablet warfarin (COUMADIN) 5 mg tablet Past Medical History Active Ambulatory Problems Diagnosis Date Noted ??? Asthma NOS 01/26/2012 ??? Flutter Atrial (HCC) 06/29/2018 ??? Hypertensive Heart Disease With Heart Failure (HCC) 06/29/2018 ??? Apnea Sleep Obstructive 02/06/2012 ??? Constipation 07/15/2012 ??? Contracture Shoulder Joint Right 07/14/2013 ??? Diabetes Mellitus Type 2 Without Complication (HCC) 08/23/2015 ??? Other Specified Anxiety Disorders 05/24/2009 ??? Primary Osteoarthritis Acromioclavicular Left 07/14/2013 ??? Dyspnea NOS 01/26/2012 ??? Fatigue Chronic 07/15/2013 ??? Fibromyalgia 06/28/2015 ??? Gastroesophageal Reflux Disease NOS 02/06/2012 ??? Anemia Iron Deficiency 07/27/2009 ??? Irregular Sleep-Wake Rhythm Disorder 07/15/2013 ??? Migraine Headache 05/24/2009 ??? Asthma Mild Persistent (HCC) 06/28/2014 ??? Hyperlipidemia Mixed 07/27/2009 ??? Pain Musculoskeletal Widespread Chronic 04/30/2013 ??? Posttraumatic Stress Disorder Brief 03/20/2017 ??? Unsteadiness Gait Disorder Non Orthopedic 04/30/2013 ??? Acute On Chronic Diastolic (Congestive) Heart Failure (HCC) 07/01/2018 ??? Hyperlipidemia On Treatment 07/01/2018 ??? Thrombus Atrial (HCC) 07/01/2018 Resolved Ambulatory Problems Diagnosis Date Noted ??? No Resolved Ambulatory Problems Past Medical History: Diagnosis Date ??? Arthritis Rheumatoid (HCC) ??? Cataract ??? Degeneration Macular ??? Diabetes Mellitus NOS ??? Glaucoma ??? Irritable Bowel Syndrome Without Diarrhea ??? Osteoporosis ??? Sleep Apnea } REVIEW OF SYSTEMS Pertinent items are noted in HPI; all other review of systems was negative. The following portions of the patient's history were reviewed and updated as appropriate: allergies,current medications, family history, medical history, social history, surgical history and problem list. Family History Problem Relation Age of Onset ??? Hypertension Father ??? Coronary artery disease Father ??? Hyperlipidemia Father Social History Socioeconomic History ??? Marital status: [...] file Gets together: Not on file Attends nondenominational service: Not on file Active member of [...] lives with 1 son and an ex-boyfriend Vitals: 10/21/18 0905 10/21/18 0908 10/21/18 0909 BP: 124/74 116/67 BP Location: Right arm Left arm Left arm Patient Position: Sitting Sitting Standing Cuff Size: Regular Regular Regular Pulse: (!) 50 (!) 49 (!) 51 Weight: 93.4 kg Height: 166 cm BP Readings from Last 3 Encounters: 10/21/18 116/67 10/20/18 94/58 09/14/18 121/82 PHYSICAL EXAMINATION General: Alert, cooperative, no distress, appears stated age Neck: no JVD Lungs: Clear to auscultation bilaterally, respirations unlabored Heart: Regular rate and rhythm, S1 and S2 normal, 2 6 systolic crescendo decrescendo murmur at the right upper sternal border Extremities: 1+ pitting edema bilateral lower extremities Skin: Skin color, texture, turgor normal, no rashes or lesions Psychiatric: Normal mood and affect DIAGNOSTICS I have reviewed the patient's current laboratory, imaging, and other diagnostic studies. Recent Results (from the past 72 hour(s)) CMP (Comprehensive Metabolic Panel) Collection Time: 10/20/18 3:02 PM Result Value Potassium, S 4.5 Sodium, S 138 Chloride, S 98 Bicarbonate, S 29 Anion Gap 11 Bld Urea Nitrog(BUN), S 22 (H) Creatinine, S 1.46 (H) eGFR-Non Black 39 (L) eGFR-Black 44 (L) Calcium, Total, S 9.4 Glucose, S 134 Protein, Total, S 7.0 Albumin, S 4.1 Aspartate Aminotransferase (AST), S 224 (H) Alkaline Phosphatase, S 213 (H) Alanine Aminotransferase (ALT), S 158 (H) Bilirubin, Total, S 0.8 PT (Prothrombin Time) with INR Collection Time: 10/20/18 3:02 PM Result Value Prothrombin Time, P 25.4 (H) INR 2.3 CBC with Differential, Blood Collection Time: 10/20/18 3:02 PM Result Value Hemoglobin 12.9 Hematocrit 41.8 Erythrocytes 4.51 MCV 92.7 RBC Distrib Width 16.5 (H) Platelet Count 395 (H) Leukocytes 11.4 (H) Neutrophils 7.80 (H) Lymphocytes 2.31 Monocytes 0.88 (H) Eosinophils 0.34 Basophils 0.08 Pertinent imaging studies have been reviewed and are notable for: Chest x-ray: 06/29/18 IMPRESSION: No significant change since 01/22/2012. No pneumothorax, focal consolidation, or pleural effusion. Biapical scarring. Stable cardiac silhouette. Calcified and mildly tortuous aorta. Thoracic curvature. Surgical clips RUQ. Chest otherwise negative. Transthoracic Echocardiogram: Final Impressions 1. Technically challenging examination. Please see comments. 2. Normal left ventricular chamber size, no regional wall motion abnormalities, estimated ejection fraction 55% with aqun-[id number] variability. 3. Mild right ventricular enlargement with mildly reduced systolic function. Estimated right ventricular systolic pressure 40 mmHg. 4. Moderate mitral valve regurgitation due to thickened mitral valve leaflets, somewhat tethered posterior leaflet and anterior leaflet over-ride. 5. Moderate tricuspid valve regurgitation due to tricuspid annular dilatation becomes more prominent with inspiration. 6. Severe bi-atrial enlargement. 7. Dilated inferior vena cava with reduced inspiratory collapse (<50%). 8. Tiny posterior pericardial effusion. Comments Technically challenging examination due to limited acoustic windows and patient's sleepiness and inability to stay awake to follow breathing instructions. Transesophageal echocardiogram Final Impressions 1. The left atrial appendage thrombus is no longer seen. There is spontaneous echo contrast in the left atrial appendage as well as a tiny mobile mass which has similar tissue density to the surrounding myocardium. Differential includes tiny organized thrombus vs normal left atrial appendage trabeculation. 2. Left atrial appendage emptying velocity 31 cm/sec. 3. No koupw-wp-qfiz shunt at atrial level at rest or with Valsalva release. 4. No regional wall motion abnormalities. 5. Estimated left ventricular ejection fraction 45 % by visual estimate. 6. Compared to the report of 07/01/2018 the following changes have occurred: Multilobulated mass in left atrial appendage is no longer present. Tiny mobile mass in its place is seen, cannot rule out residual thrombus. Side by side comparison of images performed. 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 Iris Metcalf is a pleasant 63 y.o. female who developed heart failure with mildly reduced ejection fraction in the setting of tachycardia induced cardiomyopathy and atrial flutter, now with resolution of her systolic dysfunction. She is approximately 5-10 lb above her dry weight of 190-195 lb. Provided patient education regarding salt and fluid restriction and continued furosemide use. 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 Patient currently does not endorse any anginal symptoms, if she does, might consider further ischemic evaluation given outside myocardial perfusion findings of abnormality that may be in the mid to distal LAD distribution, although at this point there is no evidence of regional wall motion abnormalities at rest. Patient will see electrophysiology to discuss antiarrhythmic versus ablation therapy for her atrial flutter. Plan discussed with supervising physician, Dr. Kaiser. Electronically signed by: Christophe Degroot M.D. 10/21/18 9:19 AM documented in this encounter Plan of Treatment Not on filedocumented as of this encounter Results (TTE) 2D ECHO DOPPLER COLOR (10/20/2018 2:26 PM CDT) [facility] Method Time Signature Ejection Fraction 55 MC [...] motion abnormalities, estimated ejection fraction 55% with [id number]-[id number] variability. 3. Mild right ventricular enlargement wi [...] ventricular ejection fra ction 55 % with [id number] variability. ??No regional wall motion abnormalities. ??Indetermina [...] For the complete report, see the [employer] Documents below. Final Impressions 1. Technically challenging examination. Please see comments. 2. Normal left ventricular chamber size, no regional wall motion abnormalities, estimated ejection fraction 55% with kkga-ft-mlaa variability. 3. Mild right ventricular enlargement wi [...] ventricular ejection fra ction 55 % with zyax-lo-zknc variability. No regional wall motion abnormalities. 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
--- OUTSIDE RECORDS SUMMARY | 2021-12-27 05:24 | XMS_ITS | Encounter Summary ---
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 How often do you attend confucianism or Never 2018 mosque services? Do you belong to any clubs or No 02/26/2019 organizations such as confucianism groups, unions, fraClearGist or athletic groups, or school groups? How [...] Comme nts HOLTER MONITOR - IN Routine 10/20/2018 12:14 PM Flutter Atrial (HCC) Results for this CLINIC APPLIANCE LINE ASSEMBLER CDT Thrombus Atrial procedure are in (HCC) the results Acute On Chronic section. Combined Systolic (Congestive) And Diastolic (Congestive) Heart Failure (HCC) documented in this encounter Results HOLTER MONITOR - IN CLINIC APPLIANCE LINE ASSEMBLER (10/20/2018 12:14 PM CDT) [employer] gist Method Time Signature VT Runs 0 count HOLTER SENTINEL VE Total Beats 1 count HOLTER SENTINEL VE Percent 0 percent HOLTER Beats SENTINEL VE Max Per [id number] HOLTER Hour Time SENTINEL VE Max Per 1 count HOLTER Hour SENTINEL Tachycardia 0 count HOLTER Runs SENTINEL SVT Runs 3 count HOLTER SENTINEL SVT Max Rate 123 bpm HOLTER SENTINEL SVE Total 3,120 count HOLTER Beats SENTINEL SVE Percent 4 percent HOLTER Beats SENTINEL SVE Max Per [id number] HOLTER Hour Time SENTINEL SVE Max Per 809 count HOLTER Hour SENTINEL Recording Date HOLTER SENTINEL Holter Pauses 0 count HOLTER SENTINEL Min Heart Rate [id number] HOLTER Time SENTINEL Min Heart Rate 40 bpm HOLTER SENTINEL Mean Heart 58 bpm HOLTER Rate SENTINEL Max Heart Rate [id number] HOLTER Time SENTINEL Max Heart Rate 73 bpm HOLTER SENTINEL Bradycardia 0 count HOLTER Runs SENTINEL Analysis Date 20,190,731 HOLTER SENTINEL AF Count 0 count HOLTER SENTINEL Specimen (Source) Anatomical Collection Method Collection Time Re ceived Time Location / / Volume Laterality 10/20/2018 12:13 PM CDT Narrative This result has an attachment that is no t available. Porfirio Villegas M.D. CV C[facility]IAC SERVICES PROCEDUR [...] as of this encounter Care Teams Rn First Assistant Relationship Specialty Start Date End Date Elsewhere, Pcp PCP - General Internal Medicine 07/27/18 documented as of this encounter
--- OUTSIDE RECORDS SUMMARY | 2021-12-27 05:24 | XMS_ITS | Encounter Summary ---
:1955 Author Organization [facility] Address [address] [place] [address] Care Team Providers Name Role Phone Vianney Barrera APRN, C.NJordy, M.S.N. Primary Care Provider [phone] Reason for Visit Reason Comments Anticoagulation Encounter Details Date Type Department Care Team Description 07/15/2018 Documentation Division of Community Bruce, Vianney Caballero APRN , Anticoagulation Internal Medicine, C.N.P., M.S.N . [facility] in [address] [place] [phone] [place] [address] [phone] Social History Tobacco Use Types Packs/Day Years [...] do you attend hinduism or Never 2018 yarsani services? Do you belong to any clubs [...] Notes Vianney Barrera APRN, C.N.P., M.S.N. - 07/15/2018 2:49 PM CDT REFERRAL SOURCE Estelle Oquendo CHIEF [...] daily 07/15/2018 2.2 4 mg p.o. daily RECHECK INR: 07/17/2018; POC at [facility] documented in this encounter Plan of Treatment Not on filedocumented as of this encounter Visit Diagnoses Not on filedocumented in this encounter Additional Health Concerns Assessment Noted Time PHQ-9 Depression Total Score: 11 05/04/2013 4:05 PM CS T documented as of this encounter Care Teams Aoc Aadc Operations Staff Officer Relationship Specialty Start Date End Date Vianney Barrera APRN, C.N.P., PCP - General Internal Medicine 07/06/18 07/26/18 M.S.N. [address] [place] [address] documented as of this encounter
--- OUTSIDE RECORDS SUMMARY | 2021-12-27 05:24 | XMS_ITS | Encounter Summary ---
:1955 Author Organization [facility] Address [address] [place] [address] Care Team Providers Name Role Phone Elsewhere, Pcp Primary Care Provider Unavailable Encounter Details Date Type Department Care Team Description 11/25/2018 Hospital Encounter Department of Siontis, Abnormal Liver Radiology, Garett Monroy [facility] in .[place], [place] [address] [place] [address] [address] [place] [phone] Social History Tobacco Use Types Packs/Day Years [...] do you attend worship or Never 2018 shinto services? Do you [...] management as per previous homegoing care plan. topiramate (TOPAMAX) Take 1 tablet (25 mg 0 07/0608/19/2019 25 mg tablet total) by mouth 2 (two) times a day. For headaches. documented as of this encounter Plan of Treatment Not on filedocumented as of this encounter Procedures Procedure Name Priority Date/Time Associated Comments Diagnosis US ABDOMEN RAD - Routine 11/25/2018 10:35 Abnormal Liver Results for this COMPLETE (most inpatients AM CDT Function Test procedure are in and all the results outpatients) section. documented in this encounter Results US Abdomen Complete (11/25/2018 10:35 AM CDT) [...] IMPRESSION: 1. Severe diffuse hepatic steatosis. Porfirio TEE US PROCEDURES documented in this encounter Visit Diagnoses Diagnosis Abnormal Liver Function Test documented in this encounter Additional Health Concerns Assessment Noted Time PHQ-9 Depression Total Score: 11 05/04/2013 4:05 PM CS T documented as of this encounter Care Teams Automatic Head Sawyer Relationship Specialty Start Date End Date Elsewhere, Pcp PCP - General Internal Medicine 07/27/18 documented as of this encounter
--- OUTSIDE RECORDS SUMMARY | 2021-12-27 05:24 | XMS_ITS | Encounter Summary ---
:1955 Author Organization [facility] Address [address] [place] [address] Care Team Providers Name Role Phone Elsewhere, Pcp Primary Care Provider Unavailable Reason for Visit Reason Onset Date Comments Rapid Heart Rate 10/30/2018 Encounter Details Date Type Department Care Team Description 10/30/2018 Clinical Department of Mandie Harris Heart Ra te Communication Cardiovascular Tracy Orozco, Medicine in [place], M.S.N., R .N. [place] [phone] [facility] [facility] (Work) [place] [address] Social History Tobacco Use Types Packs/Day Years [...] do you attend yarsani or Never 2018 judaism services? Do you [...] Telephone Encounter - Porfirio Villegas M.D. - 11/06/2018 8:24 AM CDT It looks like this has been scheduled already. Thanks Telephone Encounter - Jana Ramirez - 11/03/2018 7:[address] Villegas- Do you have a time preference on when to see Ms. Metcalf? You already have a 2pm and 4pm that day. Jana Prado Telephone Encounter - Porfirio Villegas M.D. - 11/02/2018 4:10 PM CDT I contacted the snf. Dr. Johnstno was not available, but I spoke to her nurse. Her vitals over the last few days show consistently elevated heart rate between 110-135 beats per minute. She is asymptomatic other than occasional headache. Her edema is improved. [facility] ECG. 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 Telephone Encounter - Porfirio Villegas M.D. - 10/30/2018 6:05 PM CDT Thank you, I will contact the facility. Telephone Encounter - Tracy Harris R.N. - 10/30/2018 11:25 AM CDT INFORMATION DISCUSSED Dr. Johnston from a [facility] in [place], [place] contacted [facility] regarding Ms. Metcalf. He states that he is overseeing her care in the snf until Ms. Metcalf can be transferred to the assisted living facility (she is waiting for an open bed). Dr. Johnston states that in the snf they are monitoring Ms. Metcalf's vital signs. Ms. Metcalf has had heart rates in the 130's on three separate occassions and with on of those occassions being this morning. Dr. Johnston states that yesterday morning Ms. Metcalf's heart rate was 66 bpm. However, this morning it is in the 130's and irregular. Ms. Metcalf will have palpitations at times that correlates with the fast heart rates and at times not. She does not have any chest pain, shortness ofbreath, or any other symptoms. Dr. Johnston states that in the correspondence they had received on 10/21/2018; Dr. Landaverde had discontinued Ms. Iris Metcalf's diltiazem. He is wondering if the diltiazem should be restarted or metoprolol tartrate increased or if he should just have the nursing team continue to monitor observe andmonitor vital signs? Dr. Johnston can be reached at the snf facility's phone number of : [phone]. He said verbal orders can also be given to the nursing staff. PLAN This message will be sent to Dr. Villegas and Dr. Yeager for them to review and make further recommendations. Disposition/Recommendation: provider notified Education: patient/caller able to teach back Caller agreeable to plan of care: yes The following references were used: nursing clinical judgement documented in this encounter Plan of Treatment Not on filedocumented as of this encounter Visit Diagnoses Not on filedocumented in this encounter Additional Health Concerns Assessment Noted Time PHQ-9 Depression Total Score: 11 05/04/2013 4:05 PM CS T documented as of this encounter Care Teams Looseleaf Binder Coverer Relationship Specialty Start Date End Date Elsewhere, Pcp PCP - General Internal Medicine 07/27/18 documented as of this encounter
--- OUTSIDE RECORDS SUMMARY | 2021-12-27 05:25 | XMS_ITS | Encounter Summary ---
:1955 Author Organization [facility] Address [address] [place] [address] Care Team Providers Name Role Phone Unavailable Primary Care Provider Unavailable Encounter Details Date Type Department Care Team Description 05/07/2013 Hospital Encounter HX NO MAPPING Social History Tobacco Use Types Packs/Day Years Used Date Smoking Tobacco: Never Assessed Alcohol Habits Answer Date Recorded How often [...] or relatives? How often do you attend taoism or Never 2018 bahai services? Do you belong to any clubs or No 02/26/2019 organizations such as taoism groups, unions, fraternal or athletic groups, or [...] Sig Dispensed Refills Start Date End Date losartan-hydroCHLOROthiaz Take 1 tablet by 0 12/2407/06/2018 tio (HYZAAR) 100-12.5 mg mouth daily. per tablet simvastatin (ZOCOR) 20 mg Take 1 tablet by 0 12/2407/06/2018 tablet mouth at bedtime. topiramate (TOPAMAX) 25 Take 1 tablet by 0 201107/06/2018 mg tablet mouth 2 (two) times a day. documented as of this encounter Plan of Treatment Not on filedocumented as of this encounter Visit Diagnoses Not on filedocumented in this encounter Additional Health Concerns Assessment Noted Time PHQ-9 Depression Total Score: 11 05/04/2013 4:05 PM CS T documented as of this encounter
--- OUTSIDE RECORDS SUMMARY | 2021-12-27 05:25 | XMS_ITS | Encounter Summary ---
:1955 Author Organization [facility] Address [address] [place] [address] Care Team Providers Name Role Phone Unavailable Primary Care Provider Unavailable Encounter Details Date Type Department Care Team Description 05/06/2013 Hospital Encounter HX NO MAPPING Social History [...] do you attend mormonism or Never 2018 jehovah's witness services? Do you belong to any clubs [...]
--- OUTSIDE RECORDS SUMMARY | 2021-12-27 05:25 | XMS_ITS | Encounter Summary ---
:1955 Author Organization [facility] Address [address] [place] [address] Care Team Providers Name Role Phone Unavailable [...] do you attend religious or Never 2018 quaker services? Do you [...]
--- OUTSIDE RECORDS SUMMARY | 2021-12-27 05:25 | XMS_ITS | Encounter Summary ---
:1955 Author Organization [facility] Address [address] [place] [address] Care Team Providers Name Role Phone Vianney Barrera APRN, C.N.P., M.S.N. Primary Care Provider [phone] Reason for Referral Outpatient (Routine) - Closed Specialty Diagnoses / Referred By Contact Referred To Contact Procedures Cardiovascular Diseases / Diagnoses Flutter Atrial (HCC) Oralia Ricks, [facility] Cardiovascular Disease [place], C.N.P. [address] [place] [phone] Referral ID Status Reason Start Date Expiration Date Visits Requ ested Visits Authorized [id number] Closed 07/03/2018 07/03/2019 1 1 Reason for Visit Reason Onset Date Comments Pre-visit Testing Orders 07/03/2018 Encounter Details Date Type Department Care Team Description 07/03/2018 Clinical Department of Millicent Pre-visit Test ing Communication Cardiovascular Oralia Hernandez, Orders Medicine in [place], C.N.P. [place], [place] [address] [place] [address] [place] [phone] Social History Tobacco Use Types Packs/Day Years [...] do you attend yarsani or Never 2018 hinduism services? Do you [...] Schedule Diagnoses Cardiovascular Disease Outpatient Referral Routine Flutter Atr ial Expected: - Heart rhythm consult (HCC) 08/02 (clinic) (Approximate), Expires: 07/03/2021 documented as of this encounter Visit Diagnoses Diagnosis Flutter Atrial (HCC) - Primary documented in this encounter Additional Health Concerns Assessment Noted Time PHQ-9 Depression Total Score: 11 05/04/2013 4:05 PM CS T documented as of this encounter Care Teams Home Coordinator Relationship Specialty Start Date End Date Vianney Barrera APRN, C.N.P., PCP - General Internal Medicine 07/06/18 07/26/18 M.S.N. [address] [place] [address] documented as of this encounter
--- OUTSIDE RECORDS SUMMARY | 2021-12-27 05:25 | XMS_ITS | Encounter Summary ---
:1955 Author Organization [facility] Address [address] [place] [address] Care Team Providers Name Role Phone Unavailable Primary Care Provider Unavailable Encounter Details Date Type Department Care Team Description 05/05/2013 Hospital Encounter HX NO MAPPING Social History [...] or relatives? How often do you attend confucianist or Never 2018 episcopal services? Do you belong to any clubs or No 02/26/2019 organizations such as confucianist groups, unions, fraternal or athletic groups, or [...]
--- OUTSIDE RECORDS SUMMARY | 2021-12-27 05:25 | XMS_ITS | Encounter Summary ---
:1955 Author Organization [facility] Address [address] [place] [address] Care Team Providers Name Role Phone Unavailable Primary Care Provider Unavailable Encounter Details Date Type Department Care Team Description 07/19/1996 - Hospital Encounter HX RST GENEROSE 2 EAST 07/20/1996 Social History Tobacco Use Types Packs/Day Years [...] do you attend buddhist or Never 2018 confucianism services? Do you belong to any clubs [...]
--- OUTSIDE RECORDS SUMMARY | 2021-12-27 05:25 | XMS_ITS | Encounter Summary ---
:1955 Author Organization [facility] Address [address] [place] [address] Care Team Providers Name Role Phone Unavailable Primary Care Provider Unavailable Encounter Details Date Type Department Care Team Description 05/04/2013 Hospital Encounter HX [facility] [address] [place] [phone] Social History Tobacco Use Types Packs/Day Years [...] do you attend yarsani or Never 2018 taoism services? Do you belong to any clubs [...]
--- OUTSIDE RECORDS SUMMARY | 2021-12-27 05:25 | XMS_ITS | Encounter Summary ---
:1955 Author Organization [facility] Address [address] [place] [address] Care Team Providers Name Role Phone Unavailable Primary Care Provider Unavailable Encounter Details Date Type Department Care Team Description 05/04/2013 Hospital Encounter HX RST FIBROMYALGIA Verito Collins, [place], C.N.P., D.N.P., M.S. [address] [place] [phone] (Wo rk) Social History Tobacco Use Types [...] or relatives? How often do you attend episcopal or Never 2018 zoroastrianism services? Do you belong to any clubs or No 02/26/2019 organizations such as episcopal groups, unions, fraternal or athletic groups, or [...]
--- OUTSIDE RECORDS SUMMARY | 2021-12-27 05:25 | XMS_ITS | Encounter Summary ---
:1955 Author Organization [facility] Address [address] [place] [address] Care Team Providers Name Role Phone Vianney Barrera APRN, C.N.P., M.S.N. Primary Care Provider [phone] Encounter Details Date Type Department Care Team Description 06/29/2018 - Hospital Encounter [facility] Bola Ibarra M.B.B.S. [address] [place] [address] Flutter Atrial (HCC) (Primary Dx); [facility] Functional Status; [facility], Fourth Floor [address] [place] [address] [phone] Social History Tobacco Use Types Packs/Day Years [...] do you attend restorationism or Never 2018 hinduism services? Do you belong to any clubs or No 02/26/2019 organizations such as restorationism groups, unions, fraternal or athletic groups, or [...] Sign Reading Time Taken Comments Blood Pressure 104/67 07/06/2018 9:00 AM CDT Pulse 71 07/06/2018 8:30 AM CDT Temperature 36.2 ??C (97.2 ??F) 07/06/2018 8:30 AM CDT Respiratory Rate 16 07/06/2018 9:00 AM CDT Oxygen Saturation 99% 07/06/2018 8:30 AM CDT Inhaled Oxygen Concentration - - Weight 87.7 kg (193 lb 5.5 oz) 07/06/2018 8:00 AM CDT Height 165 cm (5' 4.96) 07/01/2018 11:10 AM CDT Body Mass Index 32.21 07/01/2018 11:10 AM CDT documented in this encounter Discharge Summaries Bella Danielson P.A.-C., M.S. - 07/06/2018 8:49 AM CDT CARDIOLOGY HOSPITAL DISCHARGE SUMMARY DATE OF ADMISSION: 06/29/2018 DATE OF DISCHARGE: 07/06/18 Discharge Provider: Petra Dillard M.D. Discharge Provider Team: T [facility] hospital PRINCIPAL DIAGNOSIS Flutter Atrial (HCC) DISMISSAL DIAGNOSES Principal Problem: Flutter Atrial (HCC) Active Problems: Asthma NOS Hypertensive Heart Disease With Heart Failure (HCC) Apnea Sleep Obstructive Constipation Diabetes Mellitus Type 2 Without Complication (HCC) Other Specified Anxiety Disorders Dyspnea NOS Fatigue Chronic Fibromyalgia Gastroesophageal Reflux Disease NOS Anemia Iron Deficiency Migraine Headache Pain Musculoskeletal Widespread Chronic Posttraumatic Stress Disorder Brief Unsteadiness Gait Disorder Non Orthopedic Acute On Chronic Diastolic (Congestive) Heart Failure (HCC) Hyperlipidemia On Treatment Thrombus Atrial (HCC) Resolved Problems: * No resolved hospital problems. * HOSPITAL COURSE Admission Weight: 88.6 kg Dismissal Weight: 87.7 kg BMI: Body mass index is 32.21 kg/m??. Ms. Metcalf is a 63 y.o. female who was admitted to the [facility] for management of atrial flutter. She has a past medical history of recurrent atrial flutter, hypertension, chronic diastolic heart failure, hyperlipidemia, depression with anxiety and dependent personality disorder. She was recently admitted at the [facility] from 06/22/2018 - 06/23/2018, where she was treated for atrial fibrillation/flutter with diltiazem drip and self converted to sinus rhythm. As a result, her metoprolol increased to 100 mg b.i.d. and she was dismissed. During her follow-up visit, she was noted to have recurrent atrial flutter. Electrocardiogram obtained revealed atrial flutter with ventricular rates 140 with 2-1 AV block. Thediltiazem drip was initiated, which transiently controlled her rates. On the morning of 06/30/2018, she had recurrence of rapid rates despite diltiazem and re-initiation of metoprolol. Transesophageal echo cardiogram demonstrated a mobile left atrial thrombus. Due to the thrombus atrial flutter ablation was canceled. Xarelto was discontinued. Intravenous heparin was initiated. Coumadin was initiated with a INR goal of 2.5-3.5. Heart rate control was obtained with Diltiazem XR and Metoprolol. Cardioversion was contraindicated with the mobile left atrial thrombus and anti-rhythmics that could potentially convert to sinus rhythm also need to be avoided. Repeat transesophageal echo to ensure resolution of thrombus within the left atrium followed by cardioversion should be pursued in 6 weeks. At that time atrial flutter ablation can be considered. Oxygen was weaned off prior to discharge. PT/OT was consulted due to weakness and decreased caregiver support at home. intermediate facility placement was recommended post-discharge. Social work assisted with discharge planning. Patient discharged in stable condition on 07/06/2018 to [facility]. DIAGNOSTIC TESTS EC07/03/2018 Atrial flutter with variable A-V block Rightward axis Nonspecific ST and T wave abnormality When compared with ECG of 01-JUL-2018 09:44, Vent. rate has decreased BY ??57 BPM Atrial flutter is now with with variable A-V block Echo Transesophageal: 07/01/2018 Final Impressions 1. Left atrial appendage thrombus. Multilobulated mass with mobile components (clips [id number]). Spotaneous echo contrast. 2. Moderate left ventricular enlargement. Estimated ejection fraction 45%. 3. Mild-moderate mitral valve regurgitation. 4. Moderate tricuspid valve regurgitation. 5. Severe bi-atrial enlargement. Dx Chest Ap Or Pa And Lateral 2 Views Result Date: 06/30/2018 Impression: IMPRESSION: No significant change since 01/22/2012. No pneumothorax, focal consolidation, or pleural effusion. Biapical scarring. Stable cardiac silhouette. Calcified and mildly tortuous aorta. Thoracic curvature. Surgical clips RUQ. Chest otherwise negative. I have personally reviewed theimages and agree with this interpretation. TEST RESULTS PENDING AT DISCHARGE: none MEDICATIONS CHANGED DURING THIS HOSPITAL STAY Medications stopped: estradiol, lorazepam, losartan-hydrochlorothiazide, ranitidine, xarelto Medications changed: none Medications added: acetaminophen, diltiazem, losartan, warfarin Dixon Iris Celeste Home Medication Instructions THOMAS:[id number] Printed on:07/06/18 4735 Medication Information acetaminophen (TYLENOL) 500 mg tablet Take 2 tablets (1,000 mg total) by mouth every 6 (six) hours as needed for pain or fever. albuterol (PROAIR HFA) 90 mcg/actuation inhaler Inhale 1-2 puffs every 4 (four) hours as needed for shortness of breath. dxxhvff-jbaecnthlyodf-rajxxxpy (EXCEDRIN MIGRAINE) 250-250-65 mg per tablet Take 1-2 tablets by mouth as needed for headaches. dilTIAZem (DILACOR XR/DILT-XR) 240 mg ER capsule Take 1 capsule (240 mg total) by mouth daily. For atrial fibrillation DULoxetine (CYMBALTA) [address] capsule Take 1 capsule (30 mg total) by mouth 2 (two) times a day. For Fibromyaligia ferrous sulfate 325 mg (65 mg iron) DR tablet Take 1 tablet (65 mg of iron total) by mouth daily. For anemia fluticasone furoate (ARNUITY ELLIPTA) 100 mcg/actuation diskus inhaler Inhale 1 puff daily. Asthma losartan (COZAAR) 50 mg tablet Take 1 tablet (50 mg total) by mouth daily. For hypertension. metFORMIN (GLUCOPHAGE) 500 mg tablet Take 1 tablet (500 mg total) by mouth 2 (two) times a day with meals. For Diabetes Mellitus metoprolol tartrate (LOPRESSOR) 50 mg tablet Take 2 tablets (100 mg total) by mouth 2 (two) times a day. For heart rate control. pantoprazole (PROTONIX) 40 mg EC tablet Take 1 tablet (40 mg total) by mouth daily. For GERD rizatriptan (MAXALT) 5 mg tablet Take 1 tablet (5 mg total) by mouth as needed for migraine. simvastatin (ZOCOR) 20 mg tablet Take 1 tablet (20 mg total) by mouth at bedtime. Hyperlipidemia topiramate (TOPAMAX) 25 mg tablet Take 1 tablet (25 mg total) by mouth 2 (two) times a day. For headaches. warfarin (COUMADIN) 5 mg tablet Take 1 tablet (5 mg total) by mouth daily. For left atrial thrombus; INR goal 2.5-3.5. DISCHARGE DISPOSITION: Assisted Facility [3] CONDITION ON DISCHARGE: Stable. DIET AT DISCHARGE: General FOLLOW-UP APPOINTMENTS Future Appointments Date Time Provider Department Center 08/10/2018 9:00 AM Ana Maria Aburto APRN, C.N.P., M.S.N. [facility] Spec RECOMMENDATIONS FOR FOLLOW-UP APPOINTMENTS INR should be checked in 2-3 days after dismissal with further dose adjustments by primary care provider covering the skilled care center. recheck a CBC and BMP in 7-10 days ANTICOAGULATION RECORD: INR goal: 2.5-3.5 Warfarin duration and indication: ongoing due to atrial fibrillation/atrial flutter Patient Instructions: Take 5 mg of Warfarin on 07/06/2018, recheck INR on 07/08- 07/09. Warfarin Administrations (last 168 hours) Date/Time Action Medication Dose 07/05/18 1614 Given warfarin tablet 4 mg (COUMADIN) 4 mg 07/04/18 1625 Given warfarin tablet 5 mg (COUMADIN) 5 mg 07/03/18 1711 Given warfarin tablet 7.5 mg (COUMADIN) 7.5 mg 07/02/18 1736 Given warfarin tablet 5 mg (COUMADIN) 5 mg 07/01/18 1920 Given warfarin tablet 5 mg (COUMADIN) 5 mg INR (no units) Date Value Status 07/06/2018 2.6 Final 07/05/2018 2.7 Final 07/04/2018 1.9 Final 07/03/2018 1.3 Final 07/02/2018 1.3 Final 07/01/2018 1.6 Final 06/29/2018 1.1 Final PRIMARY PROVIDER Patient Care Team: Kandace Mckeon D.O. as External Primary Care Physician (Family Medicine) Primary Care Providers: Pcp, Elsewhere (General) No address on file Primary Care Provider Phone Number: None Primary Care Provider Fax Number: None MARGIN CODE I personally spent total time of 45 minutes with >50% spent with counseling/coordination of care,independent from other providers on our team. documented in this encounter Discharge Instructions Discharge InstructionsFoKellee perales - 07/01/2018 10:11 AM CDT You were discharged from the [facility]. Please identify this service name if you call with questions after hospitalization. Discharge Instr - ActivityAlly Canela P.T., D.P.T. - 07/02/2018 6:54 PM CDT Physical Therapy Discharge Summary: MOBILITY RESTRICTIONS: Other Precautions: atrial fibrillation, fall risk, cardiac CURRENT FUNCTIONAL STATUS: Patient can ambulate short distances (<20 feet) with minimal assistance before demonstrating mild increases in shortness of breath. With contact guard assistance patient is able to perform repeated sit to stand transfers safely. RECOMMENDATION: Recommend Physical Therapy evaluate and treat. Frequency and duration to be determined by the evaluating therapist. Discharge information provided on 07/02/2018 by Tommy Rogers Contact information: [facility], [address], 07/03/2018 I have reviewed & agree with analysis and recommendations; Ally Canela P.T., D.P.T. Discharge Instr - Non [place] Follow-UpsFoKellee perales - 07/01/2018 10:11 AM CDT * Take a copy of your dismissal paperwork with you to your appointments. * [place] June: 11:00 a.m. - Dr. Radha Parish, care provider, hospital follow up visit, at [facility]. [facility] [place], [place] You may have outpatient appointments at [facility] that changed during your hospitalization. Refer to your [facility] Patient Appointment Guide (PAG) for the most current schedule of appointments anddetails instructions of tests / procedures. Call [phone] if you did not receive a PAG or need to CANCEL any [facility] appointment(s). documented in this encounter Medications at Time of Discharge Medication Sig Dispensed Refills Start Date End Date albuterol (PROAIR HFA) Inhale 1-2 puffs every 1 Inhaler 11 0 07/06/2018 90 mcg/actuation 4 (four) hours as inhaler needed for shortness of breath. rizatriptan (MAXALT) 5 Take 1 tablet (5 mg 9 tablet 0 06/22 mg tablet total) by mouth as needed for migraine. simvastatin (ZOCOR) 20 Take 1 tablet (20 mg 0 mg tablet total) by mouth at bedtime. Hyperlipidemia acetaminophen Take 2 tablets (1,000 0 07/06/2018 07/08/2018 (TYLENOL) 500 mg mg total) by mouth tablet every 6 (six) hours as needed for pain or fever. aspirin-acetaminophen- Take 1-2 tablets by 0 06/2209/14/2018 caffeine (EXCEDRIN mouth as needed for MIGRAINE) 250-250-65 headaches. mg per tablet dilTIAZem (DILACOR Take 1 capsule (240 mg 0 07/0607/23/2018 XR/DILT-XR) 240 mg ER total) by mouth daily. capsule For atrial fibrillation DULoxetine (CYMBALTA) Take 1 capsule (30 mg 0 08/19/[address] capsule total) by mouth 2 (two) times a day. For Fibromyaligia ferrous sulfate 325 mg Take 1 tablet (65 mg of 0 07/06/2018 03/30/2020 (65 mg iron) DR tablet iron total) by mouth daily. For anemia fluticasone furoate Inhale 1 puff daily. 0 201808/19/2019 (ARNUITY ELLIPTA) 100 Asthma mcg/actuation diskus inhaler losartan (COZAAR) 50 Take 1 tablet (50 mg 0 07/0607/23/2018 mg tablet total) by mouth daily. For hypertension. metFORMIN (GLUCOPHAGE) Take 1 tablet (500 mg 0 08/19/2019 500 mg tablet total) by mouth 2 (two) times a day with meals. For Diabetes Mellitus metoprolol tartrate Take 2 tablets (100 mg 0 06/2204/21/2019 (LOPRESSOR) 50 mg total) by mouth 2 (two) tablet times a day. For heart rate control. pantoprazole Take 1 tablet (40 mg 0 07/06/2018 (PROTONIX) 40 mg EC total) by mouth daily. tablet For GERD topiramate (TOPAMAX) Take 1 tablet (25 mg 0 07/0608/19/2019 25 mg tablet total) by mouth 2 (two) times a day. For headaches. warfarin (COUMADIN) 5 Take 1 tablet (5 mg 0 07/0607/23/2018 mg tablet total) by mouth daily. For left atrial thrombus; INR goal 2.5-3.5. documented as of this encounter Progress Notes Tommy Rogers - 07/06/2018 9:58 AM CDT 07/06/18 0958 Reason Therapy Missed Reason Therapy Missed Other (comment) Patient's chart was reviewed in AM with plans for session today. Upon discussion with nursing, patient is to discharge this AM. Therapist met with patient and verbally reviewed lower extremity strengthening program as well as the targeted exertional scale for symptom-managed activity. Patient verbalized her understanding and has no further questions at this time. Therapy will be signing off at this time. LUBNA Velez Associated attestation - Stan Alatorre P.T., D.P.T. - 07/06/2018 12:04 PM CDT This therapist has reviewed all documentation and supervised today's session. This therapist agrees with the plan of care developed in collaboration with the patient. Valerie Myers Pharm.D., R.Ph. - 07/06/2018 8:44 AM CDT Warfarin Dosing Progress Note: More information: Iris Metcalf is a 63 y.o. female who was admitted to the hospital on 06/29/2018. Hospital Pharmacy has been consulted for inpatient warfarin management and monitoring. Warfarin Indication: Atrial fibrillation (AF) Other indication (comments): Left atrial appendage thrombus Type of therapy: New Prior average daily dose: No Data Recorded Comorbidities: No known risk Are any of these comorbidities new with admission? No Data Recorded Are there any new medication interactions with admission? No Data Recorded Target INR: 2.5-3.5 Day of therapy: 5 and beyond Drug interactions include the following: Strong Potentiator None Moderate Potentiators Start Dose/Rate Route Frequency Ordered Stop 07/06/18 0000 acetaminophen (TYLENOL) 500 mg tablet 1,000 mg oral Every 6 hours PRN 07/06/18 0841 07/06/18 0000 zaixlhz-fibigyahzxeyr-kexkqvte (EXCEDRIN MIGRAINE) 250-250-65 mg per tablet 1-2 tablet oral As needed 07/06/18 0841 06/29/18 1816 acetaminophen tablet 1,000 mg (TYLENOL) Comments: Use for patients with no hepatic disease 1,000 mg oral Every 6 hours PRN 06/29/18 1817 Potentiating Start Dose/Rate Route Frequency Ordered Stop 07/06/18 0000 acetaminophen (TYLENOL) 500 mg tablet 1,000 mg oral Every 6 hours PRN 07/06/18 0841 07/06/18 0000 iepzpbv-pbfroufbfkfmb-iweifaem (EXCEDRIN MIGRAINE) 250-250-65 mg per tablet 1-2 tablet oral As needed 07/06/18 0841 07/06/18 0000 simvastatin (ZOCOR) 20 mg tablet 20 mg oral Daily at bedtime 07/06/18 0841 06/29/18 1816 acetaminophen tablet 1,000 mg (TYLENOL) Comments: Use for patients with no hepatic disease 1,000 mg oral Every 6 hours PRN 06/29/18 1817 Enzyme Inducers None Binders None Vitamin K-Containing Medications (168h ago through future) None Antiplatelets & Anticoagulants (168h ago through future) Start Dose/Rate Route Frequency Ordered Stop 07/06/18 0000 warfarin (COUMADIN) 5 mg tablet 5 mg oral Daily 07/06/18 0841 07/06/19 2359 07/05/18 1700 warfarin tablet 4 mg (COUMADIN) 4 mg oral Once 07/05/18 0854 07/05/18 1614 07/04/18 1700 warfarin tablet 5 mg (COUMADIN) 5 mg oral Once 07/04/18 0823 07/04/18 1625 07/03/18 1700 warfarin tablet 7.5 mg (COUMADIN) 7.5 mg oral Once 07/03/18 0906 07/03/18 1711 07/02/18 1700 warfarin tablet 5 mg (COUMADIN) 5 mg oral Once 07/02/18 0821 07/02/18 1736 07/02/18 1445 heparin (porcine) 1,000 unit/mL injection 2,700 Units 30 Units/kg ?? 88.6 kg (Dosing Weight) intravenous Once 07/02/18 1437 07/02/18 1503 07/01/18 2300 heparin (porcine) 1,000 unit/mL injection 5,300 Units 60 Units/kg ?? 88.6 kg (Dosing Weight) intravenous Once 07/01/18 2252 07/01/18 2302 07/01/18 1700 warfarin tablet 5 mg (COUMADIN) 5 mg oral Once 07/01/18 1407 07/01/18 1920 07/01/18 1230 heparin (porcine) 1,000 unit/mL injection 5,300 Units 60 Units/kg ?? 88.6 kg (Dosing Weight) intravenous Once 07/01/18 1220 07/01/18 1434 07/01/18 1230 warfarin management (COUMADIN) oral Daily 07/01/18 1220 INR reversal agents were not given. Warfarin Reversal Agent Administrations (last 168 hours) Vitamin K, FFP, and K-Centra None Warfarin Administrations (last 168 hours) Date/Time Action Medication Dose 07/05/18 1614 Given warfarin tablet 4 mg (COUMADIN) 4 mg 07/04/18 1625 Given warfarin tablet 5 mg (COUMADIN) 5 mg 07/03/18 1711 Given warfarin tablet 7.5 mg (COUMADIN) 7.5 mg 07/02/18 1736 Given warfarin tablet 5 mg (COUMADIN) 5 mg 07/01/18 1920 Given warfarin tablet 5 mg (COUMADIN) 5 mg INR (no units) Date Value Status 07/06/2018 2.6 Final 07/05/2018 2.7 Final 07/04/2018 1.9 Final 07/03/2018 1.3 Final 07/02/2018 1.3 Final 07/01/2018 1.6 Final 06/29/2018 1.1 Final A/P: Admitted for atrial flutter and underwent MICHAEL which identified a large left atrial appendage thrombus. Patient is being switched from rivaroxaban to warfarin in setting of this finding with goal INR 2.5-3.5 per business intelligence consultant. INR is therapeutic at 2.7 after 4 doses of warfarin. I Will decrease the dose and order warfarin 4 mg for this evening since the INR is increasing at a somewhat rapid rate. The pharmacist team will continue to follow patient's clinical progress daily until discharge from the hospital. When patient discharged, discharge plan is for discharge warfarin dose: plan for warfarin 5 mg dailywith INR check at facility in 2-3 days. INR goal 2.5-3.5 as per service. Valerie Myers, D., R.Ph. Contact [phone] with any questions about this note. Petra Dillard M.D. - 07/05/2018 5:59 PM CDT SUBJECTIVE HISTORY OF PRESENT ILLNESS I visited with Ms. Iris Metcalf today and performed a physical exam as well as detailed chart review. Mrs Metcalf had a difficult night with nocturnal leg cramps. She had them at home, too, but she cannot remember for how long. OBJECTIVE Temperature: [36.4 ??C-36.9 ??C] 36.4 ??C Heart Rate: [70-138] 84 Resp Rate: [12-26] 14 Blood Pressure: (107-123)/(66-98) 107/70 SpO2: [96 %-99 %] 98 % Weight: [86.5 kg] 86.5 kg BMI (Calculated): [31.8 kg/m??] 31.8 kg/m?? Pulse Rate: [71-131] 71 Intake/Output 07/04/18 0700 - 07/05/18 0659 07/05/18 0700 - 07/06/18 0659 Intake (ml) 1890 646 Output (ml) 1150 -- Net (ml) 740 646 PHYSICAL EXAMINATION Heart: unchanged. Lungs: Normal to auscultation and percussion. Abdomen: Normal bowl sounds Extremities: No new changes Skin: No new changes DIAGNOSTICS I have reviewed the patient's current laboratory, imaging, and other diagnostic studies. ASSESSMENT / PLAN # Frequent nocturnal leg cramps This is very painful for her and also occurred at home. I reviewed her medications, which do not currently include drugs that have been implicated in leg cramps. At home, she had lorazepam. We will review her list with pharmacy again and we ordered magnesium, which has been low before. Lissette Breen Pharm.D., R.Ph. - 07/05/2018 8:51 AM CDT Warfarin Dosing Progress Note: More information: Iris Metcalf is a 63 y.o. female who was admitted to the hospital on 06/29/2018. Hospital Pharmacy has been consulted for inpatient warfarin management and monitoring. Warfarin Indication: Atrial fibrillation (AF) Other indication (comments): Left atrial appendage thrombus Type of therapy: New Prior average daily dose: No Data Recorded Comorbidities: No known risk Are any of these comorbidities new with admission? No Data Recorded Are there any new medication interactions with admission? No Data Recorded Target INR: 2.5-3.5 Day of therapy: 5 and beyond Drug interactions include the following: Strong Potentiator None Moderate Potentiators Start Dose/Rate Route Frequency Ordered Stop 06/29/18 181 acetaminophen tablet 1,000 mg (TYLENOL) Comments: Use for patients with no hepatic disease 1,000 mg oral Every 6 hours PRN 06/29/18 1817 Potentiating Start Dose/Rate Route Frequency Ordered Stop 06/29/18 181 acetaminophen tablet 1,000 mg (TYLENOL) Comments: Use for patients with no hepatic disease 1,000 mg oral Every 6 hours PRN 06/29/18 181 Enzyme Inducers None Binders None Vitamin K-Containing Medications (168h ago through future) None Antiplatelets & Anticoagulants (168h ago through future) Start Dose/Rate Route Frequency Ordered Stop 07/04/18 1700 warfarin tablet 5 mg (COUMADIN) 5 mg oral Once 07/04/18 0823 07/04/18 1625 07/03/18 1700 warfarin tablet 7.5 mg (COUMADIN) 7.5 mg oral Once 07/03/18 0906 07/03/18 1711 07/03/18 0930 enoxaparin injection 80 mg (LOVENOX) 1 mg/kg ?? 88.6 kg (Dosing Weight) subcutaneous 2 times daily 07/03/18 0929 07/02/18 1700 warfarin tablet 5 mg (COUMADIN) 5 mg oral Once 07/02/18 0821 07/02/18 1736 07/02/18 1445 heparin (porcine) 1,000 unit/mL injection 2,700 Units 30 Units/kg ?? 88.6 kg (Dosing Weight) intravenous Once 07/02/18 1437 07/02/18 1503 07/01/18 2300 heparin (porcine) 1,000 unit/mL injection 5,300 Units 60 Units/kg ?? 88.6 kg (Dosing Weight) intravenous Once 07/01/18 2252 07/01/18 2302 07/01/18 1700 warfarin tablet 5 mg (COUMADIN) 5 mg oral Once 07/01/18 1407 07/01/18 1920 07/01/18 1230 heparin (porcine) 1,000 unit/mL injection 5,300 Units 60 Units/kg ?? 88.6 kg (Dosing Weight) intravenous Once 07/01/18 1220 07/01/18 1434 07/01/18 1230 warfarin management (COUMADIN) oral Daily 07/01/18 1220 INR reversal agents were not given. Warfarin Reversal Agent Administrations (last 168 hours) Vitamin K, FFP, and K-Centra None Warfarin Administrations (last 168 hours) Date/Time Action Medication Dose 07/04/18 1625 Given warfarin tablet 5 mg (COUMADIN) 5 mg 07/03/18 1711 Given warfarin tablet 7.5 mg (COUMADIN) 7.5 mg 07/02/18 1736 Given warfarin tablet 5 mg (COUMADIN) 5 mg 07/01/18 1920 Given warfarin tablet 5 mg (COUMADIN) 5 mg INR (no units) Date Value Status 07/05/2018 2.7 Final 07/04/2018 1.9 Final 07/03/2018 1.3 Final 07/02/2018 1.3 Final 07/01/2018 1.6 Final 06/29/2018 1.1 Final A/P: Admitted for atrial flutter and underwent MICHAEL which identified a large left atrial appendage thrombus. Patient is being switched from rivaroxaban to warfarin in setting of this finding with goal INR 2.5-3.5 per business intelligence consultant. INR is therapeutic at 2.7 after 4 doses of warfarin. I Will decrease the dose and order warfarin 4 mg for this evening since the INR is increasing at a somewhat rapid rate. The pharmacist team will continue to follow patient's clinical progress daily until discharge from the hospital. When patient discharged, discharge plan is for discharge warfarin dose: tbd mg Post Hospital follow up tbd INR recheck date/range tbd Lissette Breen, Pharm.DEdilma, R.Ph. Contact [phone] with any questions about this note. Petra Dillard M.D. - 07/04/2018 9:40 PM CDT SUBJECTIVE HISTORY OF PRESENT ILLNESS I visited with Ms. Iris Metcalf today and performed a physical exam as well as detailed chart review. No new acute events OBJECTIVE Temperature: [36.4 ??C-36.7 ??C] 36.4 ??C Heart Rate: [67-138] 95 Resp Rate: [10-31] 18 Blood Pressure: (100-122)/(66-86) 121/70 SpO2: [96 %-100 %] 97 % Weight: [86.2 kg] 86.2 kg BMI (Calculated): [31.7 kg/m??] 31.7 kg/m?? Pulse Rate: [66-116] 73 Intake/Output 07/03/18 0700 - 07/04/18 0659 07/04/18 0700 - 07/05/18 0659 Intake (ml) 640 1240 Output (ml) 1300 500 Net (ml) -660 740 PHYSICAL EXAMINATION Heart: unchanged. Lungs: Normal to auscultation and percussion. Abdomen: Normal bowl sounds Extremities: No new changes Skin: No new changes DIAGNOSTICS I have reviewed the patient's current laboratory, imaging, and other diagnostic studies. ASSESSMENT / PLAN We will continue to mobilize the patient over the weekend. I anticiapte safe dismissal on Friday Lissette Breen Pharm.D., R.Ph. - 07/04/2018 8:22 AM CDT Warfarin Dosing Progress Note: More information: Iris Metcalf is a 63 y.o. female who was admitted to the hospital on 06/29/2018. Hospital Pharmacy has been consulted for inpatient warfarin management and monitoring. Warfarin Indication: Atrial fibrillation (AF) Other indication (comments): Left atrial appendage thrombus Type of therapy: New Prior average daily dose: No Data Recorded Comorbidities: No known risk Are any of these comorbidities new with admission? No Data Recorded Are there any new medication interactions with admission? No Data Recorded Target INR: 2.5-3.5 Day of therapy: 4 Drug interactions include the following: Strong Potentiator None Moderate Potentiators Start Dose/Rate Route Frequency Ordered Stop 06/29/18 1816 acetaminophen tablet 1,000 mg (TYLENOL) Comments: Use for patients with no hepatic disease 1,000 mg oral Every 6 hours PRN 06/29/18 1817 Potentiating Start Dose/Rate Route Frequency Ordered Stop 06/29/18 1816 acetaminophen tablet 1,000 mg (TYLENOL) Comments: Use for patients with no hepatic disease 1,000 mg oral Every 6 hours PRN 06/29/18 1817 Enzyme Inducers None Binders None Vitamin K-Containing Medications (168h ago through future) None Antiplatelets & Anticoagulants (168h ago through future) Start Dose/Rate Route Frequency Ordered Stop 07/03/18 1700 warfarin tablet 7.5 mg (COUMADIN) 7.5 mg oral Once 07/03/18 0906 07/03/18 1711 07/03/18 0930 enoxaparin injection 80 mg (LOVENOX) 1 mg/kg ?? 88.6 kg (Dosing Weight) subcutaneous 2 times daily 07/03/18 0929 07/02/18 1700 warfarin tablet 5 mg (COUMADIN) 5 mg oral Once 07/02/18 0821 07/02/18 1736 07/02/18 1445 heparin (porcine) 1,000 unit/mL injection 2,700 Units 30 Units/kg ?? 88.6 kg (Dosing Weight) intravenous Once 07/02/18 1437 07/02/18 1503 07/01/18 2300 heparin (porcine) 1,000 unit/mL injection 5,300 Units 60 Units/kg ?? 88.6 kg (Dosing Weight) intravenous Once 07/01/18 2252 07/01/18 2302 07/01/18 1700 warfarin tablet 5 mg (COUMADIN) 5 mg oral Once 07/01/18 1407 07/01/18 1920 07/01/18 1230 heparin (porcine) 1,000 unit/mL injection 5,300 Units 60 Units/kg ?? 88.6 kg (Dosing Weight) intravenous Once 07/01/18 1220 07/01/18 1434 07/01/18 1230 warfarin management (COUMADIN) oral Daily 07/01/18 1220 INR reversal agents were not given. Warfarin Reversal Agent Administrations (last 168 hours) Vitamin K, FFP, and K-Centra None Warfarin Administrations (last 168 hours) Date/Time Action Medication Dose 07/03/18 1711 Given warfarin tablet 7.5 mg (COUMADIN) 7.5 mg 07/02/18 1736 Given warfarin tablet 5 mg (COUMADIN) 5 mg 07/01/18 1920 Given warfarin tablet 5 mg (COUMADIN) 5 mg INR (no units) Date Value Status 07/04/2018 1.9 Final 07/03/2018 1.3 Final 07/02/2018 1.3 Final 07/01/2018 1.6 Final 06/29/2018 1.1 Final A/P: Admitted for atrial flutter and underwent MICHAEL which identified a large left atrial appendage thrombus. Patient is being switched from rivaroxaban to warfarin in setting of this finding with goal INR 2.5-3.5 per business intelligence consultant. Patient was taking rivaroxaban with last dose 06/30 at 1600. INR finally responded today after three doses of warfarin. Will order warfarin 5 mg for this evening. The pharmacist team will continue to follow patient's clinical progress daily until discharge from the hospital. When patient discharged, discharge plan is for discharge warfarin dose: tbd mg [facility] follow up tbd INR recheck date/range tbd Lissette Breen Pharm.D., R.Ph. Contact [phone] with any questions about this note. Petra Dillard M.D. - 07/03/2018 6:22 PM CDT I agree with the daily progress note, history, physical and management plan as outlined by Oralia Zhong with the below changes and additions. Mila Quezada L.I.C.S.W., M.S.W. - 07/03/2018 3:19 PM CDT SUBJECTIVE Referral Data Referral Source: Early Screen for Discharge Planning Referral Reason: Discharge Planning Discharge Planning: Assisted Facility The patient was seen for ongoing discharge needs. A list of senior care facility options (that patient/family geographically resides or requests) has been provided to and reviewed with patient/family. Disclaimers: Financial disclosure provided informing patient of our ownership and financial relationship of the [facility]/home health & hospice agencies. Reviewed insurance coverage, provided patient with in-network options if applicable. Patient/family have indicated a preference for the facility/agency below. patient and family declined additional resources. Provided the patient with a referral update while her son was present. They agreed that their preference would be for [facility] as the son lives nearby. OBJECTIVE Anticipated modifications to the home environment: Grab Bars Patient requires the following additional equipment upon dismissal: Walker, Grab Bars - Wall, Grab Bars - Toilet ASSESSMENT / PLAN Assessment The patient/family appear to have insight into the patient's needs at this time and are planning appropriately for discharge needs. The patient/family report agreement with the below plan with no further questions at this time. Plan The patient is being prepared to discharge on 07/06/2018 at 10:00 AM if medically ready for transfer.Contact SOCIAL WORK if time needs to be changed. Transportation will be provided by facility shuttle- Kaity Oquendo will pick patient up at E[facility]U doors with their wheelchair. Destination - Selection Complete Service Request Status Selected Specialties Address Phone Number Fax Number Kaity Oquendo [facility] [address] [facility] [address] [phone] Contact: nursing Transportation oxygen: No oxygen needed. PER KAITY OQUENDO: ?? Our truck driver heavy will pick her at the EAST/PRU doors ??with our w/c on 07/06 at 10am. ?? The truck driver heavy will bring a portable O2 tank for transport if needed. ?? The patient must have had a bowel movement within 24 hrs of discharge. ?? The dismissal summary and orders must include an MD signature on the day of discharge and a diagnosis with each medication ordered. A DIRECTOR SANITATION BUREAU signature is NOT acceptable. ?? Any substitutions of current IV, IM, oral and mist medication orders made after acceptance to [facility] may potentiate cancellation of the admission. ?? The dismissal summary should be faxed to our nurses fax to ensure these standards have been met. ? Our nurse will call for report. ?? We have a non-smoking/tobacco free facility and campus. NURSING: - Complete documentation in the Discharge Navigator including Nursing Report Info and Facility/Next Level of Care Info - Contact facility to give report on morning of discharge. - Send After Visit Summary and required packet of dismissal information with patient, including advance directive. PRIMARY SERVICE: - Provider to Provider call is not required. - Provide written prescriptions for all narcotics. After Visit Summary to Include: - All discharge medications include dosage, times for administration, diagnosis, and stop date. - Ongoing care - wound care, infection precautions and phone numbers to call. SOCIAL WORK: - Pre-admission screen has been completed. ([id number]) - Will continue to follow. Adalberto Castro, M.S.W. 07/03/2018 Tommy Rogers - 07/03/2018 1:22 PM CDT Physical Therapy Inpatient Treatment Note SUBJECTIVE Patient's Name: Iris Metcalf Referring/Attending: Petra Dillard M.D. Medical Diagnosis: Flutter Atrial (HCC) [I48.92] Reason for Referral: PT Evaluate and Treat safety evaluation, general cardiac evaluation and treatment Onset Date: 06/29/18 Payor: MEDICARE / Plan: MEDICARE A AND B / Product Type: Medicare / History of Present Illness: Atrial flutter with cardiac ablation 07/01/2018. Patient/Caregiver Goals: Is open to short term placement to improve functional status Patient Comments: Patient was found awake and supine in bed with nurse practitioner present who notified therapist that the control in heart rate was contributed to an increase in her medications, and patient continued to be safe to work with therapy. Patient is agreeable to therapy session. She reports she is slightly fatigued and has not slept well, but is willing to participate. Activity Orders Start Ordered 06/30/18 0916 Activity: As Tolerated Until discontinued Question: Activity Level: Answer: As Tolerated 06/30/18 0915 Precautions Other Precautions: atrial fibrillation, fall risk, cardiac Fall Risk (65 and older) Fall in the last 12 months: No Are you fearful of falling?: Yes OBJECTIVE Pain Assessment Pain Assessment: 0-10 Numeric Pain Intensity Scale Pain Score: 0 - No pain Vitals taken during session: Pulse rate: 67, 70, 68 bpm, Blood pressure: 97/59, 99/66, 94/74 mmHg, MAP: 72. 77. 82, O2 sats: 95. 96. 94% and O2 flow: Room air Vitals taken pre, during, and post mobility (nursing notified of patient response to activity). Subjective Dyspnea Scale (Possible range of +1 mild to +4 severe): +2 = Mild, some difficulty, noticeable to observer Lenny RPE: Post mobility 15 - Hard . Treatment consisted of: Bed Mobility - Supine to Sit Level of Assistance: Modified Independent Device: Bed rail Comments: head of bed elevated to 30 degrees. Bed Mobility - Sit to Supine Level of Assistance: Modified Independent Device: Bed rail Comments: head of bed elevated to 30 degrees. Bed Mobility - Scooting Level of Assistance: Modified Independent Device: Bed rail Transfer - Sit to Stand # of Assistants: 1 Device: Front wheeled walker Level of Assistance: Minimal assistance (contact guard assistance likely progressing to supervision assist during the session ) Comments: Patient able to forward weight shift and use hands on rail to achieve upright posture withtherapist at gait belt to maintain safety. Transfer - Stand to Sit # of Assistants: 1 Level of Assistance: Minimal assistance (contact guard assistance ) Device: Front wheeled walker Comments: Patient uses bilateral hand rails to eccentric control full motion to chair with contact guard to maintain safety. Gait Training # of Assistants: 1 Level of Assistance: Minimal assistance Device: Front wheeled walker Distance (m): 38 m (1 x 18 meters, 1 x 20 meters ) Surface: wood floor, shoes Assessment of Gait: Flat foot gait with short bilateral step length and limited terminal hip extension. Heavy use of upper extremities on walker with mild Trendelenburg noted to the right to clear leftlower extremity. Patient demonstrates shortness of breath prior to reporting she needs a seated rest break. Training/Intervention: DGI-4, cues to vegetable picker feet and step big Response: DGI-4: Patient unable to perform dual tasks without stopping gait or turning head with gaze directed ahead at her walking path. She demonstrates mild path deviations and significant slowing of gait. Patient demonstrates adequate changes in gait speed between slow/normal/fast with increased step length, heel to toe pattern and upright posture with fast walking. With cues to step big and pickup feet patient is able to maintain increased gait velocity for short bursts prior to requiring a standing rest break. Exercise - Position Supine Exercise: Hip ABduction/ADduction, Straight leg raises, Bridging (1 x 10 reps of abductions and straight leg raise, 1 x 5 reps of bridging ) Standing Exercise: Marching, Heel raises/toe raises (2 x 10 reps) Position Exercise Comment: Patient reports the limiting factor for her upright activity is her left knee and back pain. Therapist encouraged patient to take rest breaks and perform supine exercises prior to standing exercises to warm up muscles. Education provided this session: supine bed and seated exercises to perform to maintain muscle mass The patient/family educated on safe transfer techniques with functional mobility/activity. The following coordination of care occurred today: Contacted Patient's nurse regarding discharge/safety recommendations, equipment needs/recommendations and ongoing therapy needs after hospital discharge Patient was left in bed at end of session with call light in reach, all needs met and questions answered. Patient instructed to have assistance with mobility. Outcome Measures Interpretations of Measures - Tools and Additional Outcome Measures below: Dynamic Gait Index 4: -Gait on level surface (2) Mild impairment: Walks 20', uses assistive devices, slower speed, mild gait deviations. -Change in gait speed (2) Mild impairment: Able to change speed but demonstrates mild gait deviations, or no gait deviations but unable to achieve a significant change in velocity, or uses and assistive device. -Gait with horizontal head turns (0) Severe impairment: Performs task with severe disruptions of gait (i.e., staggers outside 15?? path, loses balance, stops, reaches for wall). -Gait with vertical head turns (1) Moderate impairment: Performs tasks with moderate change in gait velocity, slows down, staggers but recovers, can continue to walk. Interpretation: Patient scored 5/12 points. According to scoring guidelines, people who score in this range (less than 10) are at an increased risk for falls Single Leg Stance test: 3.5 seconds Interpretation: < 5 seconds = High Fall Risk AM-PAC Inpatient Short Form: AM-PAC Mobility: How much difficulty does the patient currently have??? Turning over in bed (including adjusting bedclothes, sheets and blankets)?: None Sitting down on and standing up from a chair with arms (e.g., wheelchair, bedside commode, etc.): A Little Moving from lying on back to sitting on the side of the bed?: None AM-PAC Mobility: How much help from another person does the patient currently need??? Moving to and from a bed to a chair: A Little Need to walk in hospital room?: A Little Climbing 3-5 steps with a railing?: A Lot Basic Mobility Raw Score: 19 Basic Mobility Standardized Score: 45.44 Interpretation: Clinicians answer the AM-PAC Inpatient Short Form based on observed patient activityand/or clinical judgement (ie. patient can be scored without physically performing each activity) According to scoring guidelines: Those going to home had an average score of 20.1 Those going home with home care had an average score of 17.9 Those going to SNF had an average score of 14 Those going to IRF had an average score of 13.6 Those going to a LTAC had an average score of 11.5 Assessment Barriers to Discharge: Decreased caregiver support Discharge Recommendation: Ongoing skilled therapy recommended in a post-acute setting. From a physical therapist standpoint, patient currently requires contact guard assistance assist for mobility. Thepatient is not at their functional baseline and would benefit from additional physical therapy at a s hort term rehab facility to assist with returning to prior level of function and to maximize safety. From a physical therapy perspective, the level of care above has been recommended for Ms. Metcalf after hospital discharge. This level of care is based on her functional abilities during today's session. This may change throughout the hospital course and will be updated as appropriate. Clinical Impression of today's session: Patient was limited in therapy due to early fatigue, generalized weakness and knee pain during activity. Currently, patient presents with impairments including altered balance, pain, compromised endurance, and weakness??resulting in the following functional deficits: difficulty in ??completing transfers and ambulation at a safe, independent level. Patient reports that her knee pain greatly limits herstability, which is reflected her performance during the single leg stance test. Her performance on the DGI-4 place her at high risk for falls as she struggles to dual-task safely. At this time, patient is unsafe to return home as there is no one who can provide her the assist level she needs. Patientwould benefit from short term placement to maximize functional independence and address impairments in safety, pain, balance, strength and endurance. Rehab potential: Ms. Metcalf has Good potential to achieve established physical therapy goals within the time frame outlined below. Functional Goals and Timeframes: PT Inpatient Goals PT Goal #1: Patient will be able to ambulate 40 meters with contact guard assist using front wheeledwalker while executing the task with good safety awareness, stability, and functional strength. PT Goal #2: Patient will be able to negotiate 4 steps with modified independence using a single railwhile executing the task with good safety awareness, stability, and functional strength. PT Goal #3: Patient will demonstrate improved sit to stand transfers modified independently to demonstrate improved functional mobility and independence. Plan Treatment Plan: PT Frequency: 5x/week PT Duration: until goals are met or hospital discharge Requires Inpatient Follow-Up: Yes PT - Next Inpatient Appointment: 07/06/18 Plan Comments: DGI-4, minBEST-13, alternating step test, lower extremity training program Treatment interventions may include: Therapeutic exercise, Therapeutic functional activity, Neuromuscular re- education, Gait training Billing: Time Spent with Patient Therapeutic Activity (min): 38 min Therapeutic Exercise (min): 3 min Total Timed Units (min): 41 min Total Treatment Time (min): 41 min Functional G-code Worksheet Basic Mobility Raw Score: 19 Basic Mobility Standardized Score: 45.44 CMS 0-100% Score: 41.77 % Basic Mobility CMS Modifier: CK Tommy Rogers, SPT Associated attestation - Ally Canela P.T., D.P.T. - 08/12/2018 1:14 PM CDT This therapist has reviewed all documentation and supervised today's session. This therapist agrees with the plan of care developed in collaboration with the patient. Ally Canela P.T., Pradeep.P.TSo Villasenor, Pharm.D., R.Ph. - 07/03/2018 9:04 AM CDT Warfarin Dosing Progress Note: More information: Iris Metcalf is a 63 y.o. female who was admitted to the hospital on 06/29/2018. Hospital Pharmacy has been consulted for inpatient warfarin management and monitoring. Warfarin Indication: Atrial fibrillation (AF) Other indication (comments): Left atrial appendage thrombus Type of therapy: New Prior average daily dose: No Data Recorded Comorbidities: No known risk Are any of these comorbidities new with admission? No Data Recorded Are there any new medication interactions with admission? No Data Recorded Target INR: 2.5-3.5 Day of therapy: 3 Drug interactions include the following: Strong Potentiator None Moderate Potentiators Start Dose/Rate Route Frequency Ordered Stop 06/29/18 181 acetaminophen tablet 1,000 mg (TYLENOL) Comments: Use for patients with no hepatic disease 1,000 mg oral Every 6 hours PRN 06/29/18 1817 Potentiating Start Dose/Rate Route Frequency Ordered Stop 06/29/18 1816 acetaminophen tablet 1,000 mg (TYLENOL) Comments: Use for patients with no hepatic disease 1,000 mg oral Every 6 hours PRN 06/29/18 181 Enzyme Inducers None Binders None Vitamin K-Containing Medications (168h ago through future) None Antiplatelets & Anticoagulants (168h ago through future) Start Dose/Rate Route Frequency Ordered Stop 07/02/18 1700 warfarin tablet 5 mg (COUMADIN) 5 mg oral Once 07/02/18 0821 07/02/18 1736 07/02/18 1445 heparin (porcine) 1,000 unit/mL injection 2,700 Units 30 Units/kg ?? 88.6 kg (Dosing Weight) intravenous Once 07/02/18 1437 07/02/18 1503 07/02/18 0900 heparin (porcine) 100 Units/mL in D5W 250 mL infusion 15 Units/kg/hr ?? 88.6 kg (Dosing Weight) 13.3 mL/hr intravenous Continuous 07/02/18 0757 07/01/18 2300 heparin (porcine) 1,000 unit/mL injection 5,300 Units 60 Units/kg ?? 88.6 kg (Dosing Weight) intravenous Once 07/01/18 2252 07/01/18 2302 07/01/18 1700 warfarin tablet 5 mg (COUMADIN) 5 mg oral Once 07/01/18 1407 07/01/18 1920 07/01/18 1230 heparin (porcine) 1,000 unit/mL injection 5,300 Units 60 Units/kg ?? 88.6 kg (Dosing Weight) intravenous Once 07/01/18 1220 07/01/18 1434 07/01/18 1230 warfarin management (COUMADIN) oral Daily 07/01/18 1220 INR reversal agents were not given. Warfarin Reversal Agent Administrations (last 168 hours) Vitamin K, FFP, and K-Centra None Warfarin Administrations (last 168 hours) Date/Time Action Medication Dose 07/02/18 1736 Given warfarin tablet 5 mg (COUMADIN) 5 mg 07/01/18 1920 Given warfarin tablet 5 mg (COUMADIN) 5 mg INR (no units) Date Value Status 07/03/2018 1.3 Final 07/02/2018 1.3 Final 07/01/2018 1.6 Final 06/29/2018 1.1 Final A/P: Admitted for atrial flutter and underwent MICHAEL which identified a large left atrial appendage thrombus. Patient is being switched from rivaroxaban to warfarin in setting of this finding with goal INR 2.5-3.5 per business intelligence consultant. Patient was taking rivaroxaban with last dose 4/9 at 1600. INR stagnant. Will in crease dose to 7.5mg. The pharmacist team will continue to follow patient's clinical progress daily until discharge from the hospital. When patient discharged, discharge plan is for discharge warfarin dose: tbd mg Post Hospital follow up tbd INR recheck date/range tbd So Jovel Pharm.D., R.Ph. Contact [phone] with any questions about this note. Oralia Ricks APRN, C.N.P. - 07/03/2018 7:42 AM CDT [facility] Heart Rhythm [facility] CARDIOLOGY INPATIENT PROGRESS NOTE SUBJECTIVE Ms. Metcalf was seen and examined on morning rounds. No concerns. TELEMETRY 134 Atrial flutter INTAKE/OUTPUT Past 24 hours: Intake/Output Summary (Last 24 hours) at 07/03/18 0745 Last data filed at 07/02/18 2209 Gross per 24 hour Intake 1147.9 ml Output 800 ml Net 347.9 ml Admission Weight: 88.6 kg Today's weight: 86.5 kg Body mass index is 31.77 kg/m??. VITAL SIGNS Temperature: [36.4 ??C-36.6 ??C] 36.6 ??C Heart Rate: [90-141] 124 Resp Rate: [12-24] 12 Blood Pressure: (98-117)/(65-84) 117/79 SpO2: [80 %-98 %] 97 % Weight: [86.5 kg] 86.5 kg BMI (Calculated): [31.8 kg/m??] 31.8 kg/m?? Pulse Rate: [51-139] 63 PHYSICAL EXAMINATION General: Alert and oriented, in no apparent distress. Heart: Regular rate and rhythm. No murmur. Lungs: Clear to auscultation bilaterally and throughout. On room air. No cough. Abdomen: Soft, non-distended, non-tender to palpation throughout. Positive bowel sounds. Extremities: No peripheral edema, positive peripheral pulses. DIAGNOSTICS I personally reviewed all radiology and labs from the past 24 hrs. Recent Results (from the past 24 hour(s)) Glucose, POCT Collection Time: 07/02/18 1:16 PM Result Value Glucose, POCT, B 128 Site Capillary Last Intake 3-4 hours APTT (Activated Partial Thromboplastin Time) Collection Time: 07/02/18 1:27 PM Result Value Activated Partial Thrombopl Time, P 42 (H) Glucose, POCT Collection Time: 07/02/18 5:34 PM Result Value Glucose, POCT, B 136 Site Capillary Last Intake 3-4 hours APTT (Activated Partial Thromboplastin Time) Collection Time: 07/02/18 9:01 PM Result Value Activated Partial Thrombopl Time, P 88 (H) Glucose, POCT Collection Time: 07/03/18 2:13 AM Result Value Glucose, POCT, B 114 Site Capillary Glucose, POCT Collection Time: 07/03/18 5:29 AM Result Value Glucose, POCT, B 119 Last Intake 3-4 hours Basic Metabolic Panel Collection Time: 07/03/18 5:30 AM Result Value Potassium, S 4.8 Sodium, S 138 Chloride, S 100 Bicarbonate, S 26 Anion Gap 12 Bld Urea Nitrog(BUN), S 16 Creatinine, S 0.94 eGFR-Non Black 66 eGFR-Black 76 Calcium, Total 9.2 Glucose, S 116 CBC without Differential Collection Time: 07/03/18 5:30 AM Result Value Hemoglobin 13.6 Hematocrit 43.6 Erythrocytes 4.90 MCV 89.0 RBC Distrib Width 14.2 Platelet Count 531 (H) Leukocytes 8.7 Prothrombin Time (PT/INR) Collection Time: 07/03/18 5:30 AM Result Value Prothrombin Time, P 14.2 (H) INR 1.3 APTT (Activated Partial Thromboplastin Time) Collection Time: 07/03/18 5:30 AM Result Value Activated Partial Thrombopl Time, P 79 (H) Dx Chest Ap Or Pa And Lateral 2 Views Result Date: 06/30/2018 Impression: IMPRESSION: No significant change since 01/22/2012. No pneumothorax, focal consolidation, or pleural effusion. Biapical scarring. Stable cardiac silhouette. Calcified and mildly tortuous aorta. Thoracic curvature. Surgical clips RUQ. Chest otherwise negative. I have personally reviewed theimages and agree with this interpretation. 06/23/2018 Transthoracic echocardiogram: Final Impressions: 1. Normal left ventricular size, borderline wall thickness, mildly reduced global systolic function, calculated EF of 47 %. 2. Moderately enlarged left atrium. 3. Technically limited exam. 4. The aortic valve is trileaflet, no stenosis and mild to moderate regurgitation. 5. The mitral valve is normal, moderate to severe mitral regurgitation. 6. Moderate-severe tricuspid regurgitation. 7. The inferior vena cava is dilated, respiratory size variation less than 50%. 8. Severely increased estimated pulmonary pressures by tricuspid regurgitation velocity and right atrial pressure (49 mmHg plus RAP). ?? Most recent ischemic evaluation: Detailed radiology extracardiac over-read of cardiac CT obtained on01/29/2018 (Care everywhere) IMPRESSION:? 1.?Incomplete visualization of 3 mm nodule left upper lobe. Consider CT of the chest for further characterization. 2.?Hiatus hernia. 3.?Please see cardiology dictation for discussion of cardiomediastinal findings. ?? MYOCARDIAL PERFUSION SCAN, 12/03/2017 FINDINGS:?There is good uptake of activity by the left ventricle. No left ventricular enlargementis noted. There is soft tissue attenuation. There is a medium-sized area of mild to moderate reversibility involving the mid and apical anteriorand anteroseptal zuluaga and apex. This is consistent with mild to moderate ischemia. No other significant fixed or reversible defects are identified. The gated images demonstrate a normal left ventricle ejection fraction of 68 percent. No regional wall motion abnormalities are identified. Compared to the report of the 01/09/2011 study, the current ischemia in the anterior and anteroseptal wall and apex is new. ?? 07/01/2017 transesophageal echocardiogram 1. Left atrial appendage thrombus. Multilobulated mass with mobile components (clips 45-49). Spotaneous echo contrast. 2. Moderate left ventricular enlargement. Estimated ejection fraction 45%. 3. Mild-moderate mitral valve regurgitation. 4. Moderate tricuspid valve regurgitation. 5. Severe bi-atrial enlargement. ASSESSMENT / PLAN #1 Flutter Atrial (HCC) #2 Thrombus Atrial (HCC) #3 Acute On Chronic Diastolic (Congestive) Heart Failure (HCC) #4 Hyperlipidemia On Treatment #5 Diabetes Mellitus Type 2 Without Complication (HCC) #6 Asthma NOS #7 Apnea Sleep Obstructive #8 Anemia Iron Deficiency #9 Fibromyalgia #10 Dyspnea NOS #11 Fatigue Chronic #12 Gastroesophageal Reflux Disease NOS #13 Posttraumatic Stress Disorder Brief #14 Other Specified Anxiety Disorders #15 Pain Musculoskeletal Widespread Chronic #16 Unsteadiness Gait Disorder Non Orthopedic #17 Migraine Headache #18 Constipation #19 Hypertensive Heart Disease With Heart Failure (HCC) Ms. Metcalf is a 63 y.o. female who was admitted with atrial flutter. She is status post cardioversion in [place] and had some some issues with noncompliance with anticoagulation. On transesophageal echo there was a large mobile clot noted in the left atrial appendage and therefore the ablation was canceled. She was initiated on heparin. The apixaban was discontinued in favor of Coumadin with a goal INR of 2.5 x 3.5. Rate control has been pursued and it has been challenging due to the atrial flutter. She was evaluated by Physical Medicine and Rehabilitation yesterday and it was determined that she will need skilled care placement. This will be in her favor as she will have assistance in takingher medications every day and having her INR monitored. We are awaiting placement, rate control, andanticoagulation. PLAN: --discontinue intravenous heparin --Start Lovenox SQ BID --continue Coumadin via nomogram with a goal INR of 2.5-3.5 --attempting rate control of her atrial flutter. With the left atrial thrombus she is not a candidate for cardioversion. --Diltiazem infusion if rates are sustained greater than 140 --diltiazem CD was increased to 240 mg p.o. Q.day --Lopressor was increased to 100 mg p.o. b.i.d. --discontinue Hyzaar 100/12.5 once daily. Discontinue HCTZ. -Reduce Losartan to 50 mg PO daily. --PM&R safety and cognitive evaluation was completed and skilled care was recommended. --social science instructor seeking skilled care placement VTE: Heparin IV GI: Pantoprazole Code Status: Full Code Disposition: Home - self care Oralia Ricks APRN, C.N.P. 07/03/18 [facility] Heart Rhythm [facility] Douglas Ibarra M.B.BEdilmaS. - 07/02/2018 5:46 PM CDT ASSESSMENT / PLAN Ms. Metcalf is qualified for a senior care facility. From a heart rhythm perspective, she is extremely stable although her rates do remain tachycardic at times. She has absolutely no symptoms. No evidence of tachycardia-mediated cardiomyopathy. Our plan will be: 1. Continue with Coumadin with target INR between 2 and 5. She was noncompliant to rivaroxaban, and it will be crucial that we can get her INRs organized. This may be doable at a SNF. 2. She will need a repeat MICHAEL in 2 months. If there is no left atrial thrombus noted at that point, then we can set her up to get an atrial flutter ablation. Post ablation, if she maintains sinus rhythm, she will need anticoagulation at least for a month and then stop. All her questions were answered. She is aware that I am going to transition care over to Dr. Petra Dillard tomorrow morning, and I will update her about the same. Again, from the physical therapy standpoint, there are no restrictions. CT CT Job ID: [id number] Priyanka Emerson R.N. - 07/02/2018 2:21 PM CDT SUBJECTIVE Met with patient and her son to discuss discharge plans. OBJECTIVE Patient sitting comfortably in the chair. ASSESSMENT / PLAN ASSESSMENT Spoke with patient and son about PT recommending a Skilled care stay. Patient and her son are both agreeable to patient going to SNF for rehab. Patients son stated he will be out of town this weekend and he works nights, so patient may need a ride to the facility. SW will meet with patient and go over dismissal options. Web Machine Tender will continue to follow if any needs arise that I can assist with. Priyanka Emerson R.N. 07/02/2018 Douglas Ibarra M.B.B.S. - 07/02/2018 12:26 PM CDT SUBJECTIVE HISTORY OF PRESENT ILLNESS Mrs. Metcalf is doing well. She remains in atrial flutter with rapid rates. No symptoms noted. We could not do an ablation for her because her left atrial appendage showed a thrombus on MICHAEL. ASSESSMENT / PLAN Our plan is to continue with heparin and anticoagulation in the form of Coumadin. Her rates are around 90 to 120 beats per minute. With ambulation, it does increase. She is currently on diltiazem drip.I am concerned that she is not comprehending everything what has been told to her. She will need significant help at home with home health due to being on Coumadin so that we can repeat her MICHAEL in next2 months and see how much thrombus she has before doing a flutter ablation. I think this flutter canbe typically treated with excellent results. After that, we can reassess how she does. I have also had a chance to discuss with her son greatly. The patient is completely asymptomatic even when the rates are faster, so I am inclined to do aggressive rate control, watch her for another day in the hospital and if her average rates are less than 110 beats per minute off diltiazem drip, then we can consider letting her go. In the meanwhile, will also uptitrate her p.o. medications. All her questions were answered. #1 Atrial flutter #2 Left atrial appendage thrombus CT CT Job ID: [id number] So Jovel, Philomena., R.Ph. - 07/02/2018 8:18 AM CDT Warfarin Dosing Progress Note: More information: Iris Metcalf is a 63 y.o. female who was admitted to the hospital on 06/29/2018. Hospital Pharmacy has been consulted for inpatient warfarin management and monitoring. Warfarin Indication: Atrial fibrillation (AF) Other indication (comments): Left atrial appendage thrombus Type of therapy: New Prior average daily dose: No Data Recorded Comorbidities: No known risk Are any of these comorbidities new with admission? No Data Recorded Are there any new medication interactions with admission? No Data Recorded Target INR: 2.5-3.5 Day of therapy: 2 Drug interactions include the following: Strong Potentiator None Moderate Potentiators Start Dose/Rate Route Frequency Ordered Stop 06/29/18 1816 acetaminophen tablet 1,000 mg (TYLENOL) Comments: Use for patients with no hepatic disease 1,000 mg oral Every 6 hours PRN 06/29/18 1817 Potentiating Start Dose/Rate Route Frequency Ordered Stop 06/29/18 1816 acetaminophen tablet 1,000 mg (TYLENOL) Comments: Use for patients with no hepatic disease 1,000 mg oral Every 6 hours PRN 06/29/18 1817 Enzyme Inducers None Binders None Vitamin K-Containing Medications (168h ago through future) None Antiplatelets & Anticoagulants (168h ago through future) Start Dose/Rate Route Frequency Ordered Stop 07/02/18 0900 heparin (porcine) 100 Units/mL in D5W 250 mL infusion 14 Units/kg/hr ?? 88.6 kg (Dosing Weight) 12.4 mL/hr intravenous Continuous 07/02/18 0757 07/01/18 2300 heparin (porcine) 1,000 unit/mL injection 5,300 Units 60 Units/kg ?? 88.6 kg (Dosing Weight) intravenous Once 07/01/18 2252 07/01/18 2302 07/01/18 1700 warfarin tablet 5 mg (COUMADIN) 5 mg oral Once 07/01/18 1407 07/01/18 1920 07/01/18 1230 heparin (porcine) 1,000 unit/mL injection 5,300 Units 60 Units/kg ?? 88.6 kg (Dosing Weight) intravenous Once 07/01/18 1220 07/01/18 1434 07/01/18 1230 warfarin management (COUMADIN) oral Daily 07/01/18 1220 INR reversal agents were not given. Warfarin Reversal Agent Administrations (last 168 hours) Vitamin K, FFP, and K-Centra None Warfarin Administrations (last 168 hours) Date/Time Action Medication Dose 07/01/18 1920 Given warfarin tablet 5 mg (COUMADIN) 5 mg INR (no units) Date Value Status 07/02/2018 1.3 Final 07/01/2018 1.6 Final 06/29/2018 1.1 Final A/P: Admitted for atrial flutter and underwent MICHAEL which identified a large left atrial appendage thrombus. Patient is being switched from rivaroxaban to warfarin in setting of this finding with goal INR 2.5-3.5 per business intelligence consultant. Patient was taking rivaroxaban with last dose 06/30 at 1600. Note that rivaroxaban does elevate the INR which may make transition from DOAC to warfarin challenging. INR yesterday was1.6 likely due to rivaroxaban. INR today is 1.3. Will continue with 5mg today. Given this, will provide 5mg today. The pharmacist team will continue to follow patient's clinical progress daily until discharge from the hospital. When patient discharged, discharge plan is for discharge warfarin dose: tbd mg Post Hospital follow up tbd INR recheck date/range tbd oS Jovel Pharm.D., R.Ph. Contact [phone] with any questions about this note. Oralia Ricks, NO, C.N.P. - 07/02/2018 7:08 AM CDT [facility] Heart Rhythm [facility] CARDIOLOGY INPATIENT PROGRESS NOTE SUBJECTIVE Ms. Metcalf was seen and examined on morning rounds. She is alert and pleasant. She has no concerns. She reports that she will be staying with her youngest son in [place] for 2 weeks. TELEMETRY 138 Atrial flutter INTAKE/OUTPUT Past 24 hours: Intake/Output Summary (Last 24 hours) at 07/02/18 0708 Last data filed at 07/02/18 0348 Gross per 24 hour Intake 800 ml Output 1000 ml Net -200 ml Admission Weight: 88.6 kg Today's weight: 86.8 kg Body mass index is 31.88 kg/m??. VITAL SIGNS Temperature: [36.4 ??C-36.7 ??C] 36.4 ??C Heart Rate: [80-145] 136 Resp Rate: [11-31] 16 Blood Pressure: (100-146)/(74-116) 100/86 SpO2: [86 %-99 %] 95 % Flow Rate (L/min): [2 L/min-4 L/min] 2 L/min Height: [165 cm] 165 cm Weight: [86.8 kg] 86.8 kg BSA (Calculated - sq m): [1.99 sq meters] 1.99 sq meters BMI (Calculated): [31.9 kg/m??] 31.9 kg/m?? Pulse Rate: [78-143] 134 PHYSICAL EXAMINATION General: Alert and oriented, in no apparent distress. Heart: Regular rate and rhythm. No murmur. Lungs: Clear to auscultation bilaterally and throughout. On room air. No cough. Abdomen: Soft, non-distended, non-tender to palpation throughout. Positive bowel sounds. Extremities: No peripheral edema, positive peripheral pulses. DIAGNOSTICS I personally reviewed all radiology and labs from the past 24 hrs. Recent Results (from the past 24 hour(s)) Urinalysis with Microscopic Collection Time: 07/01/18 9:28 AM Result Value Source Midstream Appearance Normal Osmolality, U 652 pH, U 5.7 Glucose 8 Protein 40 (H) Protein/Osmolality 0.61 (H) Predicted 24 Hr Protein 429 Predicted Range 106-1738 Hemoglobin, QL Negative Microscopic Manual Collection Time: 07/01/18 9:28 AM Result Value Microscopy Abnormal RBC <3 WBC 1-3 Casts, Hyaline 4-10 Casts, Granular Occas (A) Fat, Free Occas (A) Squamous Epithelial Cells, U 4-10 Bacteria Present (A) Glucose, POCT Collection Time: 07/01/18 1:11 PM Result Value Glucose, POCT, B 127 Site Capillary Last Intake NPO Prothrombin Time (PT/INR) Collection Time: 07/01/18 1:55 PM Result Value Prothrombin Time, P 17.6 (H) INR 1.6 Glucose, POCT Collection Time: 07/01/18 5:34 PM Result Value Glucose, POCT, B 112 Site Capillary Last Intake NPO APTT (Activated Partial Thromboplastin Time) Collection Time: 07/01/18 9:12 PM Result Value Activated Partial Thrombopl Time, P 20 (L) Glucose, POCT Collection Time: 07/01/18 9:49 PM Result Value Glucose, POCT, B 118 APTT (Activated Partial Thromboplastin Time) Collection Time: 07/01/18 10:04 PM Result Value Activated Partial Thrombopl Time, P 39 (H) Basic Metabolic Panel Collection Time: 07/02/18 5:23 AM Result Value Potassium, S 3.6 Sodium, S 135 Chloride, S 97 (L) Bicarbonate, S 23 Anion Gap 15 Bld Urea Nitrog(BUN), S 17 Creatinine, S 0.96 eGFR-Non Black 64 eGFR-Black 74 Calcium, Total 9.0 Glucose, S 163 (H) CBC without Differential Collection Time: 07/02/18 5:23 AM Result Value Hemoglobin 13.6 Hematocrit 42.7 Erythrocytes 4.87 MCV 87.7 RBC Distrib Width 14.1 Platelet Count 511 (H) Leukocytes 9.2 Prothrombin Time (PT/INR) Collection Time: 07/02/18 5:23 AM Result Value Prothrombin Time, P 14.2 (H) INR 1.3 APTT (Activated Partial Thromboplastin Time) Collection Time: 07/02/18 5:23 AM Result Value Activated Partial Thrombopl Time, P 115 (H) Glucose, POCT Collection Time: 07/02/18 6:41 AM Result Value Glucose, POCT, B 120 Site Capillary Dx Chest Ap Or Pa And Lateral 2 Views Result Date: 06/30/2018 Impression: IMPRESSION: No significant change since 01/22/2012. No pneumothorax, focal consolidation, or pleural effusion. Biapical scarring. Stable cardiac silhouette. Calcified and mildly tortuous aorta. Thoracic curvature. Surgical clips RUQ. Chest otherwise negative. I have personally reviewed theimages and agree with this interpretation. 06/23/2018 Transthoracic echocardiogram: Final Impressions: 1. Normal left ventricular size, borderline wall thickness, mildly reduced global systolic function, calculated EF of 47 %. 2. Moderately enlarged left atrium. 3. Technically limited exam. 4. The aortic valve is trileaflet, no stenosis and mild to moderate regurgitation. 5. The mitral valve is normal, moderate to severe mitral regurgitation. 6. Moderate-severe tricuspid regurgitation. 7. The inferior vena cava is dilated, respiratory size variation less than 50%. 8. Severely increased estimated pulmonary pressures by tricuspid regurgitation velocity and right atrial pressure (49 mmHg plus RAP). ?? Most recent ischemic evaluation: Detailed radiology extracardiac over-read of cardiac CT obtained on01/29/2018 (Care everywhere) IMPRESSION:? 1.?Incomplete visualization of 3 mm nodule left upper lobe. Consider CT of the chest for further characterization. 2.?Hiatus hernia. 3.?Please see cardiology dictation for discussion of cardiomediastinal findings. ?? MYOCARDIAL PERFUSION SCAN, 12/03/2017 FINDINGS:?There is good uptake of activity by the left ventricle. No left ventricular enlargementis noted. There is soft tissue attenuation. There is a medium-sized area of mild to moderate reversibility involving the mid and apical anteriorand anteroseptal zuluaga and apex. This is consistent with mild to moderate ischemia. No other significant fixed or reversible defects are identified. The gated images demonstrate a normal left ventricle ejection fraction of 68 percent. No regional wall motion abnormalities are identified. Compared to the report of the 01/09/2011 study, the current ischemia in the anterior and anteroseptal wall and apex is new. ?? 07/01/2017 transesophageal echocardiogram 1. Left atrial appendage thrombus. Multilobulated mass with mobile components (clips 45-49). Spotaneous echo contrast. 2. Moderate left ventricular enlargement. Estimated ejection fraction 45%. 3. Mild-moderate mitral valve regurgitation. 4. Moderate tricuspid valve regurgitation. 5. Severe bi-atrial enlargement. ASSESSMENT / PLAN #1 Flutter Atrial (HCC) #2 Thrombus Atrial (HCC) #3 Acute On Chronic Diastolic (Congestive) Heart Failure (HCC) #4 Hyperlipidemia On Treatment #5 Diabetes Mellitus Type 2 Without Complication (HCC) #6 Asthma NOS #7 Apnea Sleep Obstructive #8 Anemia Iron Deficiency #9 Fibromyalgia #10 Dyspnea NOS #11 Fatigue Chronic #12 Gastroesophageal Reflux Disease NOS #13 Posttraumatic Stress Disorder Brief #14 Other Specified Anxiety Disorders #15 Pain Musculoskeletal Widespread Chronic #16 Unsteadiness Gait Disorder Non Orthopedic #17 Migraine Headache #18 Constipation #19 Hypertensive Heart Disease With Heart Failure (HCC) Ms. Metcalf is a 63 y.o. female who was admitted with atrial flutter. She is status post cardioversion in [place] and had some some issues with noncompliance with anticoagulation. PLAN: --continue intravenous heparin --continue Coumadin via nomogram with a goal INR of 2.5-3.5 --attempting rate control of her atrial flutter. With the left atrial thrombus she is not a candidate for cardioversion. --Diltiazem infusion --diltiazem CD was increased to 180 mg p.o. Q.day --Lopressor was increased to 75 mg p.o. b.i.d. --may need to consider adding digoxin. --continue Hyzaar 100/12.5 once daily --potassium is 3.6 and she will receive an extra 40 mEq of potassium --PM&R safety and cognitive evaluation --housekeeping lead is following closely for homegoing issues. VTE: Heparin IV GI: Pantoprazole Code Status: Full Code Disposition: Home - self care Oralia Ricks APRN, C.N.P. 07/02/18 [facility] Heart Rhythm [facility] Tommy Rogers - 07/01/2018 4:59 PM CDT 07/01/18 1659 Reason Therapy Missed Reason Therapy Missed Outside appointment Patient's chart was reviewed in AM with plans for evaluation. Patient was unavailable throughout theAM due to cardiac ablation procedure, and therapist unable to return in PM. Will plan for therapy evaluation at a later time/date. LUBNA Velez Associated attestation - Stan Alatorre P.T., D.P.T. - 07/01/2018 5:16 PM CDT This therapist has reviewed all documentation and agrees with the plan of care developed. So Jovel, Pharm.D., R.Ph. - 07/01/2018 2:02 PM CDT Warfarin Dosing Progress Note: More information: Iris Metcalf is a 63 y.o. female who was admitted to the hospital on 06/29/2018. Hospital Pharmacy has been consulted for inpatient warfarin management and monitoring. Warfarin Indication: Atrial fibrillation (AF) Other indication (comments): Left atrial appendage thrombus Type of therapy: New Prior average daily dose: No Data Recorded Comorbidities: No known risk Are any of these comorbidities new with admission? No Data Recorded Are there any new medication interactions with admission? No Data Recorded Target INR: 2.5-3.5 Day of therapy: 1 Drug interactions include the following: Strong Potentiator None Moderate Potentiators Start Dose/Rate Route Frequency Ordered Stop 06/29/18 181 acetaminophen tablet 1,000 mg (TYLENOL) Comments: Use for patients with no hepatic disease 1,000 mg oral Every 6 hours PRN 06/29/18 1817 Potentiating Start Dose/Rate Route Frequency Ordered Stop 06/29/18 1816 acetaminophen tablet 1,000 mg (TYLENOL) Comments: Use for patients with no hepatic disease 1,000 mg oral Every 6 hours PRN 06/29/18 1817 Enzyme Inducers None Binders None Vitamin K-Containing Medications (168h ago through future) None Antiplatelets & Anticoagulants (168h ago through future) Start Dose/Rate Route Frequency Ordered Stop 07/01/18 1230 heparin (porcine) 100 Units/mL in D5W 250 mL infusion 12 Units/kg/hr ?? 88.6 kg (Dosing Weight) 10.6 mL/hr intravenous Continuous 07/01/18 1220 07/01/18 1230 heparin (porcine) 1,000 unit/mL injection 5,300 Units 60 Units/kg ?? 88.6 kg (Dosing Weight) intravenous Once 07/01/18 1220 07/01/18 1230 warfarin management (COUMADIN) oral Daily 07/01/18 1220 INR reversal agents were not given. Warfarin Reversal Agent Administrations (last 168 hours) Vitamin K, FFP, and K-Centra None Warfarin Administrations (last 168 hours) None INR (no units) Date Value Status 06/29/2018 1.1 Final A/P: Admitted for atrial flutter and underwent MICHAEL which identified a large left atrial appendage thrombus. Patient is being switched from rivaroxaban to warfarin in setting of this finding with goal INR 2.5-3.5 per business intelligence consultant. Patient was taking rivaroxaban with last dose yesterday at 1600. Note that rivar oxaban does elevate the INR which may make transition from DOAC to warfarin challenging. INR prior to rivaroxaban exposure was 1.1. Will use this value as her baseline INR to work from. Given this, will provide 5mg today. The pharmacist team will continue to follow patient's clinical progress daily until discharge from the hospital. When patient discharged, discharge plan is for discharge warfarin dose: tbd mg Post Hospital follow up tbd INR recheck date/range tbd So Jovel Pharm.D., R.Ph. Contact [phone] with any questions about this note. Markel Sarah O.T. - 07/01/2018 12:56 PM CDT 07/01/18 1255 Reason Therapy Missed Reason Therapy Missed Other (comment) (Medical hold. Patient in atrial flutter. A flutter ablation is scheduled for 07/02/2018. Occupational therapy will check back on 07/03/18.) Douglas Ibarra M.B.B.SEdilma - 07/01/2018 11:25 AM CDT ASSESSMENT / PLAN Ms. Metcalf is doing well. She converted to sinus rhythm yesterday, however subsequent in the morning she went back into atrial flutter with rapid rates. I did discuss with her and her son yesterday our plan to perform a flutter ablation tomorrow. I have discussed with her the way procedure is performed. We will plan for a right-sided CTI ablation because that appears to be the flutter which has been bothering her. She has had multiple hospitalizations and ER visits for that. Post ablation she at least needs to be on anticoagulation for a month, if not more. I have discussed with her the way the procedure is performed it could be done under general or moderate sedation, depending on how she is doi ng, with access small chance of bleeding, hematoma, hemorrhage requiring transfusion, AV fistula, pseudoaneurysm requiring vascular surgery. With catheter manipulation small chance of stroke, heart attack, bad heart rhythm, , bleeding problem, allergic reaction, infection pericardial effusion, wynn ponade requiring pericardiocentesis, pneumothorax, hemothorax requiring chest tube. Long-term risks such as atrial fibrillation which I did discuss with her specifically that the majority of the patients at 5 years will have atrial fibrillation as that is the primary arrhythmia. If she does have atrial fibrillation, that can be managed with antiarrhythmic therapy initially. In addition, we also talked that we will do a MICHAEL to rule out left atrial appendage thrombus. I discussed with her the process of MICHAEL and some risk involved, including oral trauma, trauma to esophagus requiring blood transfusion, and other surgeries. All her questions were answered. She has given informed consent. We will proceed today. CT CT Job ID: [id number] Oralia Ricks APRN, C.N.P. - 07/01/2018 7:37 AM CDT [facility] CARDIOLOGY INPATIENT PROGRESS NOTE SUBJECTIVE Ms. Metcalf was seen and examined on morning rounds. She has no concerns. TELEMETRY 82 SR 10:00 a.m. atrial flutter 140 beat per minute INTAKE/OUTPUT Past 24 hours: Intake/Output Summary (Last 24 hours) at 07/01/18 0745 Last data filed at 06/30/18 1300 Gross per 24 hour Intake 100 ml Output 400 ml Net -300 ml Admission Weight: 88.6 kg Today's weight: 87.1 kg Body mass index is 31.99 kg/m??. VITAL SIGNS Temperature: [36.4 ??C-36.8 ??C] 36.8 ??C Heart Rate: [57-154] 82 Resp Rate: [12-40] 40 Blood Pressure: (105-143)/(64-115) 127/74 SpO2: [95 %-99 %] 98 % Pulse Rate: [63-144] 63 PHYSICAL EXAMINATION General: Alert and oriented, in no apparent distress. Heart: Regular rate and rhythm. No murmur. Lungs: Clear to auscultation bilaterally and throughout. On room air. No cough. Abdomen: Soft, non-distended, non-tender to palpation throughout. Positive bowel sounds. Extremities: No peripheral edema, positive peripheral pulses. DIAGNOSTICS I personally reviewed all radiology and labs from the past 24 hrs. Recent Results (from the past 24 hour(s)) Glucose, POCT Collection Time: 06/30/18 11:18 AM Result Value Glucose, POCT, B 135 Site Capillary Last Intake > 4 hours Glucose, POCT Collection Time: 06/30/18 4:28 PM Result Value Glucose, POCT, B 142 (H) Site Capillary Last Intake 2-3 hours Glucose, POCT Collection Time: 06/30/18 9:38 PM Result Value Glucose, POCT, B 129 Site Capillary Last Intake 3-4 hours Basic Metabolic Panel Collection Time: 07/01/18 5:50 AM Result Value Potassium, S 5.1 Sodium, S 138 Chloride, S 99 Bicarbonate, S 26 Anion Gap 13 Bld Urea Nitrog(BUN), S 21 Creatinine, S 1.14 (H) eGFR-Non Black 52 (L) eGFR-Black 60 Calcium, Total 9.4 Glucose, S 121 Glucose, POCT Collection Time: 07/01/18 5:51 AM Result Value Glucose, POCT, B 115 Site Capillary Last Intake 3-4 hours Dx Chest Ap Or Pa And Lateral 2 Views Result Date: 06/30/2018 Impression: IMPRESSION: No significant change since 01/22/2012. No pneumothorax, focal consolidation, or pleural effusion. Biapical scarring. Stable cardiac silhouette. Calcified and mildly tortuous aorta. Thoracic curvature. Surgical clips RUQ. Chest otherwise negative. I have personally reviewed theimages and agree with this interpretation. 06/23/2018 Transthoracic echocardiogram: Final Impressions: 1. Normal left ventricular size, borderline wall thickness, mildly reduced global systolic function, calculated EF of 47 %. 2. Moderately enlarged left atrium. 3. Technically limited exam. 4. The aortic valve is trileaflet, no stenosis and mild to moderate regurgitation. 5. The mitral valve is normal, moderate to severe mitral regurgitation. 6. Moderate-severe tricuspid regurgitation. 7. The inferior vena cava is dilated, respiratory size variation less than 50%. 8. Severely increased estimated pulmonary pressures by tricuspid regurgitation velocity and right atrial pressure (49 mmHg plus RAP). ?? Most recent ischemic evaluation: Detailed radiology extracardiac over-read of cardiac CT obtained on01/29/2018 (Care everywhere) IMPRESSION:? 1.?Incomplete visualization of 3 mm nodule left upper lobe. Consider CT of the chest for further characterization. 2.?Hiatus hernia. 3.?Please see cardiology dictation for discussion of cardiomediastinal findings. ?? MYOCARDIAL PERFUSION SCAN, 12/03/2017 FINDINGS:?There is good uptake of activity by the left ventricle. No left ventricular enlargementis noted. There is soft tissue attenuation. There is a medium-sized area of mild to moderate reversibility involving the mid and apical anteriorand anteroseptal zuluaga and apex. This is consistent with mild to moderate ischemia. No other significant fixed or reversible defects are identified. The gated images demonstrate a normal left ventricle ejection fraction of 68 percent. No regional wall motion abnormalities are identified. Compared to the report of the 01/09/2011 study, the current ischemia in the anterior and anteroseptal wall and apex is new. ?? ASSESSMENT / PLAN #1 Flutter Atrial (HCC) #2 Acute On Chronic Diastolic (Congestive) Heart Failure (HCC) #3 Hypertensive Heart Disease With Heart Failure (HCC) #4 Hyperlipidemia On Treatment #5 Diabetes Mellitus Type 2 Without Complication (HCC) #6 Asthma NOS #7 Apnea Sleep Obstructive #8 Anemia Iron Deficiency #9 Fibromyalgia #10 Dyspnea NOS #11 Fatigue Chronic #12 Gastroesophageal Reflux Disease NOS #13 Posttraumatic Stress Disorder Brief #14 Other Specified Anxiety Disorders #15 Pain Musculoskeletal Widespread Chronic #16 Unsteadiness Gait Disorder Non Orthopedic #17 Migraine Headache #18 Constipation Ms. Metcalf is a 63 y.o. female who was admitted with atrial flutter. She is status post cardioversion in [place] and had some some issues with noncompliance with anticoagulation. PLAN: --NPO for MICHAEL and atrial flutter ablation --continue Xarelto --continue diltiazem CD 120 mg p.o. Daily --continue Lopressor 50 mg b.i.d. --continue Hyzaar 100/12.5 once daily --potassium is 5.1 today ADDENDUM: #19 Left atrial thrombus MICHAEL demonstrated a left atrial thrombus. Ablation was canceled. Xarelto discontinued. Will initiate heparin IV and Coumadin with goal INR of 2.5-3.5. Awaiting occupational therapy cognitive assessment. She will need an ongoing plan for when she goes home to ensure that she is able to take her Coumadin daily and get lab draws as needed. VTE: Xarelto GI: Pantoprazole Code Status: Full Code Disposition: Home - self care Oralia Ricks APRN, C.N.P. 07/01/18 [facility] Ken Tommy Federico - 06/30/2018 1:56 PM CDT 06/30/18 1356 Reason Therapy Missed Reason Therapy Missed Medical hold Patient's chart was reviewed in AM and PM. Waveform viewer and recent vitals demonstrate supraventricular tachycardia with elevated blood pressures. Patient is not safe to participate in therapy today,and will plan to assess patient appropriateness for mobility at a later date and time. Tommy Rogers, SPT Florence Escobedo O.T. - 06/30/2018 1:22 PM CDT 06/30/18 1322 Reason Therapy Missed Reason Therapy Missed Medical hold. Patient having tachycardia (Heart Rate in 152) and hypertension.Patient not medically appropriate for an occupational therapy evaluation at this time. Will try again later, as able. Jana Escobedo O.T. Antelmo Richey P.A.-C. - 06/30/2018 10:36 AM CDT [facility] CARDIOLOGY INPATIENT PROGRESS NOTE SUBJECTIVE Ms. Metcalf was seen and examined on morning rounds in conjunction with my business intelligence consultant Dr. Ibarra.Patient reports no events overnight. This morning she developed an episode of head ache. She also had restless legs overnight that was treated with [place] and she felt better. She denies palpitations although her rates are in the 140s with 2-1 block while on atrial flutter. TELEMETRY Telemetry reveals atrial flutter rates ranging from 140s to 150 beats per minute with 2-1 AV block. INTAKE/OUTPUT Past 24 hours: No intake or output data in the 24 hours ending 06/30/18 1206 Admission Weight: 88.6 kg Today's weight: 87.1 kg Body mass index is 31.99 kg/m??. VITAL SIGNS Temperature: [36.6 ??C-37.1 ??C] 36.8 ??C Heart Rate: [114-157] 150 Resp Rate: [11-27] 24 Blood Pressure: (117-168)/(74-139) 135/102 SpO2: [97 %-99 %] 97 % Height: [165 cm] 165 cm Weight: [87.1 kg-88.6 kg] 87.1 kg BSA (Calculated - sq m): [2.01 sq meters] 2.01 sq meters BMI (Calculated): [32 kg/m??-32.5 kg/m??] 32 kg/m?? Pulse Rate: [87-146] 87 PHYSICAL EXAMINATION General: Alert and oriented, in no apparent distress. Heart: Rate and rhythm irregularly irregular. Lungs: Clear to auscultation bilaterally and throughout. On room air. No cough. Abdomen: Soft, non-distended, non-tender to palpation throughout. Positive bowel sounds. Extremities: No peripheral edema, positive peripheral pulses. HEENT: Nonicteric DIAGNOSTICS I personally reviewed all radiology and labs from the past 24 hrs. Recent Results (from the past 24 hour(s)) Comprehensive Metabolic Panel Collection Time: 06/29/18 7:25 PM Result Value Potassium, S 4.7 Sodium, S 136 Chloride, S 100 Bicarbonate, S 18 (L) Anion Gap 18 (H) Bld Urea Nitrog(BUN), S 15 Creatinine, S 0.81 eGFR-Non Black 79 eGFR-Black >90 Calcium, Total 9.7 Glucose, S 123 Protein, Total, S 7.2 Albumin, S 4.0 Aspartate Aminotransferase (AST), S 20 Alkaline Phosphatase, S 83 Alanine Aminotransferase (ALT), S 25 Bilirubin, Total, S 0.7 Magnesium Collection Time: 06/29/18 7:25 PM Result Value Magnesium, S 1.8 NT-Pro B-Type Natriuretic Peptide (BNP) Collection Time: 06/29/18 7:25 PM Result Value NT-Pro BNP, S 5956 (H) S-TSH (Thyroid-Stimulating Hormone - Sensitive) Collection Time: 06/29/18 7:25 PM Result Value TSH, Sensitive, S 4.8 (H) CBC with Differential, Blood Collection Time: 06/29/18 7:25 PM Result Value Hemoglobin 13.6 Hematocrit 43.1 Erythrocytes 4.92 MCV 87.6 RBC Distrib Width 13.9 Platelet Count 524 (H) Leukocytes 10.8 (H) Neutrophils 7.29 (H) Lymphocytes 2.21 Monocytes 1.12 (H) Eosinophils 0.10 Basophils 0.10 (H) Prothrombin Time (PT/INR) Collection Time: 06/29/18 7:25 PM Result Value Prothrombin Time, P 12.2 INR 1.1 Lipid Panel Collection Time: 06/29/18 7:25 PM Result Value Cholesterol, Total, S 156 Triglycerides, S 127 Cholesterol, HDL, S 56 Calculated LDL 75 Non HDL Cholesterol 100 Iron and Total Iron-Binding Capacity Collection Time: 06/29/18 7:25 PM Result Value Iron 89 Total Iron Binding Capacity 505 (H) Percent Saturation 18 Magnesium Collection Time: 06/30/18 5:57 AM Result Value Magnesium, S 1.8 Glucose, POCT Collection Time: 06/30/18 6:00 AM Result Value Glucose, POCT, B 133 Site Capillary CBC with Differential, Blood Collection Time: 06/30/18 6:01 AM Result Value Hemoglobin 13.0 Hematocrit 40.6 Erythrocytes 4.60 MCV 88.3 RBC Distrib Width 13.8 Platelet Count 451 (H) Leukocytes 9.8 (H) Neutrophils 5.28 Lymphocytes 2.89 Monocytes 1.29 (H) Eosinophils 0.19 Basophils 0.10 (H) Basic Metabolic Panel Collection Time: 06/30/18 6:01 AM Result Value Potassium, S 4.4 Sodium, S 138 Chloride, S 100 Bicarbonate, S 24 Anion Gap 14 Bld Urea Nitrog(BUN), S 12 Creatinine, S 0.82 eGFR-Non Black 77 eGFR-Black 89 Calcium, Total 9.1 Glucose, S 126 Glucose, POCT Collection Time: 06/30/18 11:18 AM Result Value Glucose, POCT, B 135 Site Capillary Last Intake > 4 hours Dx Chest Ap Or Pa And Lateral 2 Views Result Date: 06/30/2018 IMPRESSION: No significant change since 01/22/2012. No pneumothorax, focal consolidation, or pleural effusion. Biapical scarring. Stable cardiac silhouette. Calcified and mildly tortuous aorta. Thoracic curvature. Surgical clips RUQ. Chest otherwise negative. I have personally reviewed the images and agree with this interpretation. ASSESSMENT / PLAN #1 Recurrent Atrial flutter, medication noncompliance #2 Hypertensive Heart Disease With Heart Failure #3 Chronic diastolic heart failure, NYHA class II symptoms well compensated #4 Diabetes Mellitus Type 2 Without Complication #5 Asthma NOS #6 Obstructive sleep apnea, noncompliance with CPAP therapy #7 Depression with anxiety disorders #8 Fibromyalgia and chronic fatigue syndrome associated with widespread musculoskeletal pain #9 Migraine Headache, on Maxalt #10 Irregular Sleep-Wake Rhythm Disorder #11 Other Specified Anxiety Disorders #12 Dyspnea NOS #13 Gastroesophageal Reflux Disease NOS #14 Iron deficiency anemia #15 Constipation and chronic suprapubic pain #16 Asthma Mild Persistent (HCC) #17 Posttraumatic Stress Disorder Brief #18 Unsteadiness Gait Disorder Non Orthopedic #19 Concern of cognitive impairment Ms. Metcalf is a 63 y.o. female who presented to the Heart rhythm Service for management of atrial flutter with two-to-one AV block. On admission, she was started on diltiazem drip but has not had anysignificant rate control with this. An attempt to reach her son, since the patient has some evidenceof cognitive impairment, was unsuccessful. Our plan was to proceed with atrial flutter ablation but due to patient's poor judgment, family members were felt to be involved in her care. We will proceed with managing her atrial flutter with diltiazem drip and addition of metoprolol tartrate. She continues to be anticoagulated on Xarelto. Once we touch base with the family members, then we might proceedwith atrial flutter ablation. She will probably require anticoagulation for at least a month post ablation if it is successful. We have asked PT/OT to assess for placement as patient would probably require more advanced care in medication management and also the gait instability she complained of. PLAN: 1. Continue diltiazem drip and metoprolol tartrate for rate control 2. Xarelto for anticoagulation 3. PT/OT and social work to see for debility and placement respectively. 4. Discuss with son regarding a flutter ablation and if the patient is in agreement to this with thehelp of family member. 5. Imitrex for migraine headaches. Maxalt on hold. VTE: On Xarelto GI: Pantoprazole Code Status: Full Code Disposition: Pending PT/OT evaluation Antelmo Richey P.A.-C. 06/30/18 [facility] MARGIN CODE Total time: 35 min, Counseling Time: Greater than 50%. 2030 hrs: Patient converted to sinus rhythm. Decreased Metoprolol dosing to 50 mg bid and diltiazem 120 mg daily. She continues on Xarelto for anticoagulation. She does report no change in her symptomsand can feel intermittent episodes of palpitations. At this time patient complains of abdominal discomfort. She had history of suprapubic abdominal pain, she feels constipated. She has been given stoolsoftener and prune juice. We will obtain urinalysis to ensure that she does not have ongoing UTI. Her mentation is quite challenging and is she in incongruent. documented in this encounter H&P Notes Douglas Ibarra M.B.B.S. - 06/30/2018 11:50 AM CDT SUBJECTIVE HISTORY OF PRESENT ILLNESS Ms. Metcalf is a 63-year-old female who was transferred for management of atrial flutter. She has ahistory of hypertension, hyperlipidemia, diabetes, sleep apnea, noncompliance with medications, lackof social support. She was admitted with flutter with rapid rates in [place] spontaneously converted to normal rhythm. She is back in flutter and transferred here. EKG shows typical counter-clockwise atrial flutter. Apparently, she had an echo done elsewhere which showed EF of 47% with moderate to severe mitral regurgitation. The patient, at baseline, has meaningful conversation however, she seemsquite depressed and not having a full conversation. She lives at home with her ex- partner and son. However, they could not come to the hospital because they do not drive. In addition, I also tried calling the son whom she is in touch with. However, I was unable to get hold of him. She tells me he is going to visit later today. OBJECTIVE VITAL SIGNS Noted. PHYSICAL EXAMINATION General: Alert and oriented x3. Cardiac: S1, S2 normal tachycardia. Lungs: Clear. Abdomen: Soft. No edema feet. DIAGNOSTICS EKG typical flutter. ASSESSMENT / PLAN Ms. Metcalf is a 63-year-old female with a typical flutter with rapid rates. I think the idea of treating her will be a flutter ablation. She has shown some history of noncompliance to anticoagulation, however, I still believe we can do a MICHAEL, do a flutter ablation, and have her on anticoagulation for a month and then stop. No Afib noted. We can better assess her mitral valve function when she is back in sinus rhythm. I am really concerned with her decision-making capacity, her social support, etc.before we can plan the ablation and I tried to explain to her the procedure. I am not sure she understood all the implications. Hence, I will wait for 1 more family member to come so that I can discussthe procedure with them, then get her consented and then proceed with the planned ablation. I do notthink that can be done today. We will wait for a family member to show up and then decide. All her questions were answered. In the meanwhile, we will continue with anticoagulation and diltiazem drip. CT CT Job ID: [id number] Antelmo Richey P.A.-C. - 06/29/2018 7:10 PM CDT Images from the original note were not included. CARDIOLOGY INPATIENT ADMISSION NOTE CHIEF COMPLAINT/REASON FOR VISIT Atrial flutter Collaborating physician: Douglas Ibarra M.B.B.S. Admitting service: [facility] HISTORY OF PRESENT ILLNESS Ms. Metcalf is a 63 y.o. female who presented to the [facility] for management of atrial flutter. She has medical comorbidities including, but not limited to: Atrial flutter, hypertension, hyperlipidemia, type 2 diabetes on metformin (A1c 6.5 on 05/11/2018), CHAPITO not using CPAP, iron deficiency anemia, depression with anxiety, migraine, mild persistent asthma, fibromyalgia, polypharmacy, migraine headaches. The patient was initially admitted at [facility] for management of paroxysmal atrial fibrillation with RVR on 06/22/2018. Initially, she presented to her primary care for evaluation of multiple complaints in the setting of anxiety and dependent personality disorder. In the course of her evaluation, she was found to be tachycardic with rates in the 150s. She did have a long list of somatic concerns being reviewed by her PCP at that time. The patient was then referred to the localemergency department where she was noted to be in atrial flutter upon which she was initiated on adenosine, without any significant improvement in her rates. Subsequently, diltiazem was initiated and rates were brought down to the 80s to 90 beats per minute. Troponins were noted to be negative. She was started on Xarelto for anticoagulation and admitted to the local hospital. The patient then spontaneously converted to sinus rhythm. She was also noted to be hypertensive hence her metoprolol was increased from 50 mg b.i.d. 200 mg b.i.d.. A transthoracic echocardiogram obtained at that time did reveal a depressed EF of around 47% in addition to moderate left atrial enlargement and moderate to severemitral regurgitation. She also had severely elevated the right heart pressures. On 06/23/2018, the patient was dismissed from the hospital with a plan to follow-up with her primary care provider. Since her dismissal, she has had trouble sleeping and taking her medications as prescribed. She has not picked up some of her medications from the pharmacy either. On their hospital follow-up, she was noted to be tachycardic with concern of recurrence of her atrial flutter leading to her transfer here for further evaluation. Patient is seen in ET 4B 822. She is accompanied by her younger son. Patient reports to me that she was 1st diagnosed with atrial arrhythmia back in September 2017. At that time she also presented to her primary with multiple somatic symptoms and was noted to be in atrial arrhythmia. It is quite unclear from patient's perspective because she is very poor historian. She tells me that she was also hypertensive at that time. Based on her medications, the patient was started on metoprolol tartrate 50 mg b.i.d. and was on Hyzaar for blood pressure control. She tells me that she was started on a full dose aspirin 325 mg, which she has been taking until her recent hospitalization in which she was transition to Xarelto. She lives a very sedentary lifestyle (watches lost of TV, plays puzzles and stays in the house majority of the time). Occasionally when she goes for a walk, she reports exertional dyspnea andpalpitations upon going up to 4 blocks. She otherwise reports steady weight that it. He clearly fluctuates between 190-200 lb. She stays away from salty food and reports hydrating adequately with more than 8 glasses of water daily. She denies any episodes of orthopnea, PND, cough, fever, lower extremity edema. She does not does episodes of chills but has been afebrile. She also has intermittent episodes of constipation and loose stools and poor appetite. In addition to this, the patient also in doses chronic suprapubic pain of unknown etiology. She had a colonoscopy in 2016 that was inconclusive due to poor prep. There was no specimen collected. Patient denies any smoking history, or alcohol use/abuse. Her significant other is a smoker. Denies history of coronary artery disease, stroke/TIA/seizures. She has history of diabetes controlled on metformin. Reports significant family cardiac history. Father of heart and liver failure in May 2008. Mother is in SNF with Parkinson's disease and dementia. The following portions of the patient's history were reviewed and updated as appropriate: allergies,current medications, family history, medical history, social history, surgical history and problem list. PAST MEDICAL HISTORY History reviewed. No pertinent past medical history. No past surgical history on file. REVIEW OF SYSTEMS A complete 10 point review of systems was completed and negative except for as mentioned in the HPI. ALLERGIES No Known Allergies HOME MEDICATIONS Prescriptions Prior to Admission: ??? albuterol (PROAIR HFA) 90 mcg/actuation inhaler, Inhale 1-2 puffs every 4 (four) hours as needed. ??? brygjdp-rosvytfugxvhl-kmzyeozp (EXCEDRIN MIGRAINE) 250-250-65 mg per tablet, Take 1-2 tablets bymouth as needed. ??? estradiol (ESTRACE) 1 mg tablet, Take 1 mg by mouth daily. ??? ferrous sulfate 325 mg (65 mg iron) DR tablet, Take 325 mg by mouth daily. ??? fluticasone furoate (ARNUITY ELLIPTA) 100 mcg/actuation diskus inhaler, Apply 1 puff to the mouth or throat daily. ??? LORazepam (ATIVAN) 1 mg tablet, Take 1 mg by mouth as needed. ??? losartan-hydroCHLOROthiazide (HYZAAR) 100-12.5 mg per tablet, Take 1 tablet by mouth daily. ??? metFORMIN (GLUCOPHAGE) 500 mg tablet, Take 500 mg by mouth 2 (two) times a day with meals. ??? metoprolol tartrate (LOPRESSOR) 50 mg tablet, Take 100 mg by mouth 2 (two) times a day. ??? pantoprazole (PROTONIX) 40 mg EC tablet, Take 40 mg by mouth daily. ??? raNITIdine (ZANTAC) 150 mg tablet, Take 1 tablet by mouth 2 (two) times a day. ??? rizatriptan (MAXALT) 5 mg tablet, Take 5 mg by mouth as needed. ??? simvastatin (ZOCOR) 20 mg tablet, Take 1 tablet by mouth at bedtime. ??? topiramate (TOPAMAX) 25 mg tablet, Take 1 tablet by mouth 2 (two) times a day. ??? DULoxetine (CYMBALTA) [address] capsule, Take 30 mg by mouth 2 (two) times a day. Last filled in Apr for 30 day supply ??? rivaroxaban (XARELTO) 20 mg tablet, Take 20 mg by mouth at bedtime. SOCIAL HISTORY reports that she has never smoked. She does not have any smokeless tobacco history on file. FAMILY HISTORY No family history on file. OBJECTIVE VITAL SIGNS: Temperature: [36.7 ??C] 36.7 ??C Heart Rate: [145-147] 147 Resp Rate: [14-27] 27 Blood Pressure: (150-167)/(102-122) 167/115 SpO2: [97 %-99 %] 99 % Height: [165 cm] 165 cm Weight: [88.6 kg] 88.6 kg BSA (Calculated - sq m): [2.01 sq meters] 2.01 sq meters BMI (Calculated): [32.5 kg/m??] 32.5 kg/m?? Pulse Rate: [146] 146 Body mass index is 32.54 kg/m??. PHYSICAL EXAMINATION General: Ms. Metcalf is a 63 y.o. year old female. She is well developed, well nourished and in no acute distress. Heart: Irregular rate and rhythm, no murmur rub or gallop. Positive peripheral pulses. NO LOWER EXTREMITY EDEMA. NO JVD/JVP Lungs: Clear to auscultation bilaterally and throughout. Respirations even and non-labored. On room air. No cough. Abdomen: Soft, non-distended, non-tender to palpation throughout. No rebound tenderness, guarding, CVA tenderness. Positive bowel sounds. Musculoskeletal/Joints: No joint erythema, swelling, tenderness. The patient is wearing compression socks. Mental: Alert and oriented to person place time and situation. Skin: Warm, dry, color normal for race. Grossly intact. PSYCH: Patient is a very poor historian HEENT: Nonicteric DIAGNOSTICS 06/23/2018 Transthoracic echocardiogram: Final Impressions: 1. Normal left ventricular size, borderline wall thickness, mildly reduced global systolic function, calculated EF of 47 %. 2. Moderately enlarged left atrium. 3. Technically limited exam. 4. The aortic valve is trileaflet, no stenosis and mild to moderate regurgitation. 5. The mitral valve is normal, moderate to severe mitral regurgitation. 6. Moderate-severe tricuspid regurgitation. 7. The inferior vena cava is dilated, respiratory size variation less than 50%. 8. Severely increased estimated pulmonary pressures by tricuspid regurgitation velocity and right atrial pressure (49 mmHg plus RAP). Most recent ischemic evaluation: Detailed radiology extracardiac over-read of cardiac CT obtained on01/29/2018 (Care everywhere) IMPRESSION:? 1.?Incomplete visualization of 3 mm nodule left upper lobe. Consider CT of the chest for further characterization. 2.?Hiatus hernia. 3.?Please see cardiology dictation for discussion of cardiomediastinal findings. MYOCARDIAL PERFUSION SCAN, 12/03/2017 FINDINGS:?There is good uptake of activity by the left ventricle. No left ventricular enlargementis noted. There is soft tissue attenuation. There is a medium-sized area of mild to moderate reversibility involving the mid and apical anteriorand anteroseptal zuluaga and apex. This is consistent with mild to moderate ischemia. No other significant fixed or reversible defects are identified. The gated images demonstrate a normal left ventricle ejection fraction of 68 percent. No regional wall motion abnormalities are identified. Compared to the report of the 01/09/2011 study, the current ischemia in the anterior and anteroseptal wall and apex is new. Recent Results (from the past 24 hour(s)) Magnesium Collection Time: 06/29/18 7:25 PM Result Value Magnesium, S 1.8 NT-Pro B-Type Natriuretic Peptide (BNP) Collection Time: 06/29/18 7:25 PM Result Value NT-Pro BNP, S 5956 (H) S-TSH (Thyroid-Stimulating Hormone - Sensitive) Collection Time: 06/29/18 7:25 PM Result Value TSH, Sensitive, S 4.8 (H) CBC with Differential, Blood Collection Time: 06/29/18 7:25 PM Result Value Hemoglobin 13.6 Hematocrit 43.1 Erythrocytes 4.92 MCV 87.6 RBC Distrib Width 13.9 Platelet Count 524 (H) Leukocytes 10.8 (H) Neutrophils 7.29 (H) Lymphocytes 2.21 Monocytes 1.12 (H) Eosinophils 0.10 Basophils 0.10 (H) Prothrombin Time (PT/INR) Collection Time: 06/29/18 7:25 PM Result Value Prothrombin Time, P 12.2 INR 1.1 Lipid Panel Collection Time: 06/29/18 7:25 PM Result Value Cholesterol, Total, S 156 Triglycerides, S 127 Cholesterol, HDL, S 56 Calculated LDL 75 Non HDL Cholesterol 100 Iron and Total Iron-Binding Capacity Collection Time: 06/29/18 7:25 PM Result Value Iron 89 Total Iron Binding Capacity 505 (H) Percent Saturation 18 ASSESSMENT / PLAN #1 Recurrent Atrial flutter, medication noncompliance #2 Hypertensive Heart Disease With Heart Failure #3 Chronic diastolic heart failure, NYHA class II symptoms well compensated #4 Diabetes Mellitus Type 2 Without Complication (HCC) #5 Asthma NOS #6 Obstructive sleep apnea, noncompliance with CPAP therapy #7 Depression with anxiety disorders #8 Fibromyalgia and chronic fatigue syndrome associated with widespread musculoskeletal pain #9 Migraine Headache #10 Irregular Sleep-Wake Rhythm Disorder #11 Other Specified Anxiety Disorders #12 Dyspnea NOS #13 Gastroesophageal Reflux Disease NOS #14 Iron deficiency anemia #15 Constipation and chronic suprapubic pain #16 Asthma Mild Persistent (HCC) #17 Posttraumatic Stress Disorder Brief #18 Unsteadiness Gait Disorder Non Orthopedic Ms. Metcalf is a 63 y.o. female who has multiple medical comorbidities including but not limited torecurrent atrial flutter, hypertension, hyperlipidemia, depression with anxiety and dependent personality disorder, polypharmacy who is [facility] for management of atrial flutter. She was recently admitted at the [facility] from 06/22 through 06/23/2018, where she was treated for atrial fibrillation/flutter with diltiazem drip and self converted to sinus rhythm. As a result, her metoprolol increased to 100 mg b.i.d. and she was dismissed. Shavon goldman is reportedly noncompliant with medications. She has pending medications to be collected at the pharmacy but has not had a chance to do so due to transportation issues. I highly suspect that noncompliance is playing a great role in the recurrence of her atrial flutter. She also has obstructive sleep apnea, currently not on treatment due to her personal reasons. She is obese and lives a very sedentary lifestyle. She also has multiple mental issues including anxiety and dependent personality. The patient also has a very poor sleep pattern. All put together, she has significant risk factors that could be triggering her atrial arrhythmia. Moreover, echo shows some structural changes with left atrial enlargement and severe MR and very elevated right heart pressures. Her mental capacity to self manage her own medications is thus questionable. Moving forward, we will initiate diltiazem drip for management of her atrial fibrillation and Xarelto for anticoagulation at this time. If we do not get optimal rate control with diltiazem alone, then we will slowly initiate metoprolol dose in addition to diltiazem. The patient has an elevated [id number] asc score for atrial fibrillation Stroke risk ( 4 points) 4.8% per year and 6.7% risk of stroke/TIA/systemic embolism. We will ask PT/OT to evaluate for debility and safety to return home. We will also ask social work to evaluate her home setting and her ability to take care of herself at home. She currently has home health assistance while living with her son and X-. Most recent Hemoglobin A1c 05/11/2018 was 6.5 and is currently taking metformin 500 mg p.o. b.i.d.. Patient is currently on sliding scale insulin as we have held metformin. Fasting Lipid panel on 10/23/2016 revealed total cholesterol 204, triglyceride 195, HDL 50, non HDL cholesterol 154, cholesterol to HDL ratio 4.08, LDL cholesterol 115. She is currently on simvastatin 20 mg p.o. q.h.s.. We will recheck lipid panel and if elevated then we will transition her to moderate to high intensity statin therapy. PLAN: --Obtain ECG and chest x-ray --Obtain additional labs: CBC, BMP, BNP. --Initiate diltiazem drip for rate control and consider metoprolol for optimal rate management. --Consider moderate to high statin therapy if lipid levels elevated. --PT/OT and social work to see for debility and placement respectively. VTE: Continue Xarelto GI: Pantoprazole Code Status: Full Code Disposition: Pending evaluation Antelmo Richey P.A.-C. 06/29/18 MARGIN CODE Total time: 60 min, Counseling Time: Greater than 50%. documented in this encounter Consult Notes Jana Arechiga O.T. - 07/03/2018 2:33 PM CDT Occupational Therapy Acute Hospital Inpatient Evaluation/Treatment SUBJECTIVE Patient's Name: Iris Roula Metcalf Referring/Attending Provider: Petra Dillard M.D. Medical Diagnosis: Flutter Atrial (HCC) [I48.92] Reason for Referral: Occupational Therapy Evaluation and Treatment Onset Date: 06/30/18 Payor: MEDICARE / Plan: MEDICARE A AND B / Product Type: Medicare / PERTINENT MEDICAL / SURGICAL HISTORY: Patient Active Problem List Diagnosis ??? Asthma NOS ??? Flutter Atrial (HCC) ??? Hypertensive Heart Disease With Heart Failure (HCC) ??? Apnea Sleep Obstructive ??? Constipation ??? [...] Hyperlipidemia On Treatment ??? Thrombus Atrial (HCC) No past surgical history on file. History of Present Illness:Atrial flutter with cardiac ablation 07/01/2018. Occupational Profile: Prior Function / Occupational Profile Lives With: Son Receives Help From: Family ADL Assistance: Independent Homemaking Assistance: Independent Driving: Does not drive Occupational Role: On disability Home Living Type of Home: Apartment Home Layout: Two level, Able to Live on Main level with bedroom/bathroom Entrance Stairs-Number of Steps: 5 steps to enter from front door, 6-8 steps to back door Bathroom Shower/Tub: Tub/shower unit Bathroom Toilet: Standard Home Equipment Home Adaptive Equipment: None Bathroom Equipment: None Family/Caregiver Present: Yes (son at end of session) Patient/Caregiver Goals: To get stronger. Patient Comments: Agreed to OT session, did not report any pain. Activity Orders Start Ordered 06/30/18 09 Activity: As Tolerated Until discontinued Question: Activity Level: Answer: As Tolerated 06/30/18 0915 Precautions Other Precautions: Cardiac, fall Fall Risk (65 and older) Fall in the last 12 months: No Are you fearful of falling?: No OBJECTIVE Vitals taken during session: Pulse rate: 70-110 bpm Activity Tolerance Endurance: Tolerates less than 10 min exercise with changes in vital signs (increase in heart rate) Balance Static Sitting-Balance: Good (Maintains balance without support) Dynamic Sitting-Balance: Good (Maintains balance without support) Static Standing-Balance: Fair (Maintains balance with handheld assistance) Dynamic Standing-Balance: Fair (Maintains balance with handheld assistance) General ROM / Strength Screening ROM - Upper Extremity Screen: Addressed, no concerns noted Strength - Upper Extremity Screen: Impaired right & left Cognition Arousal/Alertness: Delayed responses to stimuli Attention: Impaired Following Commands: Follows all commands and directions without difficulty Safety / Judgment: Impaired Cognition Comments: Slow to respond to therapist questions, flat affect Bed Mobility - Supine to Sit Level of Assistance: Modified Independent Comments: transfered from supine to sit on couch Transfer - Sit to Stand # of Assistants: 1 Device: Front wheeled walker Level of Assistance: Supervision/Set-up Comments: cues for correct use of walker Transfer - Stand to Sit # of Assistants: 1 Level of Assistance: Supervision/Set-up Device: Front wheeled walker Grooming Grooming Level of Assistance: Supervision/Set-up Grooming Where Assessed: Standing sinkside Grooming Delivery: Practiced Grooming Comments: able to stand at sink side for 10 minutes to complete washing of face, oral hygiene, and combing hair Communication: The patient's nurse was contacted and patient's status was discussed. Patient was left in bedside chair at end of session with call light in reach, all needs met and questions answered. Outcome Measures Current ADL Status: [facility] Inpatient Short Form: Putting on and taking off regular lower body clothing?: A Little Putting on and taking off regular upper body clothing?: None Taking care of personal grooming such as brushing teeth?: None Bathing (including washing, rinsing, drying)?: A lot Toileting, which includes using toilet, bedpan, or urinal?: A Little Eating meals?: None Daily Activities Raw Score (max 24): 20 Daily Activities Standardized Score: 42.03 Daily Activities CMS 0-100% Score: 38.32 Daily Activities CMS Modifier: CJ Interpretation: Clinicians answer the [facility] Inpatient Short Form based on observed patient activityand/or clinical judgement (ie. patient can be scored without physically performing each activity) According to scoring guidelines: Those going to home had an average score of 20.1 Those going home with home care had an average score of 17.9 Those going to SNF had an average score of 14 Those going to IRF had an average score of 13.6 Those going to a LTAC had an average score of 11.5 Assessment Discharge Recommendation: Ongoing skilled therapy recommended in a post-acute setting Clinical Impression: From an OT standpoint, patient will benefit additional OT to help maximize independence as she is not at her baseline status. Recommend additional cognitive testing as patient presents with a flat affect and delayed in responses. Rehab potential: Ms. Metcalf has Good potential to achieve established occupational therapy goals within the time frame outlined below. Tiered OT Evaluation Codes: Comorbidities: A-flutter, asthma, sleep apnea, fibromyalgia, PTSD, dyspnea Personal Factors: Age, Living situation, Needs assistive device, Sedentary lifestyle Occupational Profile and History review: Expanded Performance Deficits: 3 - 5 performance deficits Functional Goals: OT Goal #1: Patient will complete total body dressing without loss of balance with modified independence. OT Goal #2: Patient will complete grooming in standing at sink side with modified independence. OT Goal #3: Patient will complete cognitive assessment to assess for any deficit areas by discharge. Progress: Progressing toward goals Plan Patient agrees with the plan of care and goals. Plan: Plan of care initiated OT Frequency: 5x/wk OT Duration: until goals are met or hospital discharge Requires Inpatient Follow-Up: Yes OT - Next Inpatient Appointment: 07/06/18 Plan of care initiated Comments: Next Session: cognitive screen (MoCA or SLUMS), grooming in standing, total body dressing Treatment interventions may include: Therapeutic exercise, Therapeutic functional activity, Self-care/home management, Cognitive skills training Billing: Time Spent with Patient OT Evaluation (min): 12 min Home Management Training (min): 10 min Time Calculation Total Timed Units (min): 10 min Total Treatment Time (min): 22 min Functional G-code Worksheet Daily Activities Raw Score (max 24): 20 Daily Activities Standardized Score: 42.03 Daily Activities CMS 0-100% Score: 38.32 Daily Activities CMS Modifier: MILAN Arechiga O.T. Mila Quezada L.I.C.S.David., M.S.W. - 07/03/2018 9:35 AM CDT Psychosocial Assessment SUBJECTIVE Visited with the patient 1:1 at the bedside in patient's hospital room. Introduced myself and my role with social work to the patient, including my status as a mandated ehs manager. Discussed the current discharge recommendation for rehab placement, which patient stated being agreeable to. She shared that if rehab is unable to be obtained, she would be able to stay with her son for a few weeks before returning home. A list of senior care facility options (that patient/family geographically resides or requests) has been provided to and reviewed with patient/family. Disclaimers: Financial disclosure provided informing patient of our ownership and financial relationship of the [facility] beds, home health, and hospice agencies. Reviewed insurance coverage, provided patient with in-network options if applicable. Patient was agreeable to the following referrals, which were sent on her behalf: [facility], [facility], [facility], and [facility]. Shared that social work would initiate those referrals, and would provide an update when responses are received from the facilities. DEMOGRAPHIC INFORMATION Referral Source: Early Screen for Discharge Planning Referral Reason: Discharge Planning Discharge Planning: Assisted Facility Person(s) present during interview: Patient Primary care clinic and provider: [facility] / Dr. 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 Citizen Resident Status: [place] Resident REASON FOR CONSULT Discharge Planning Disclaimer: The patient was advised regarding the various topics to be interviewed during this evaluation. Patient consented to proceed. The information provided in the assessment is based on review ofthe medical record as well as the face to face interview with the patient. The patient was advised that the content of this interview will be shared with the health care team. It was discussed with thepatient that staff are mandated reporters and they reported understanding. History reviewed. No pertinent past medical history. No past surgical history on file. SOCIAL HISTORY Marital Status / Family / Household Status: single Children: 2 sons; patient resides with one son who is noted to have a learning disability, and the other son resides in [place] and is willing to have patient stay with him for a few weeks post-discharge. Support Systems: Children. We have not received permission to contact them. 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 Psychosocial Risk Factors impacting the patient: Lack of Transportation, Limited Social Support, Lack of Caregiver Abuse, Neglect, Maltreatment, Trauma: Current: None reported. Past: None reported. ENVIRONMENTAL SUPPORTS Current Living Situation: Private residence Patient's Home Environment: Apartment Anticipated modifications to the patient's home environment: Grab Bars FUNCTIONAL STATUS (ADL's and IADL's) Functional Status: Minimum assistance Assistive Devices: None Type of Residence: Private residence Level of Assistance: Independent Dressing: Independent Feeding: Independent Bathing: Independent Grooming: Independent Toileting: Independent Behavior: Forgetful Communication: Talks, Understands speaking, Understands Vietnamese It is anticipated that the patient will need assistance with Medication Set- up/Administration, Housekeeping, Transportation Use (drive car, use taxi/bus). 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 Patient made minimal eye contact during the visit. Reviewed patient's chart and physical therapy is recommending rehab placement. MENTAL HEALTH Mental Health History: Patient's medical record is notable for anxiety. Patient louise verified this diagnosis, and shared that she sometimes struggles with this and sleepiness Current Psychological Symptoms: Patient Appearance: Relaxed, Unkempt Behaviors Observed: Calm Patient Level of Consciousness: Alert and oriented Status of Patient's Memory: Intact (primarily, there were minor impairments during our visit) Patient Cooperation: Cooperative Patient Mood: Dysphoric Patient Affect: Flat Quality of Patient's Speech: Slowed, Quiet Thought Process Descriptor: Logical and goal-directed Perception: Does not appear to respond to internal stimuli Anxiety Symptoms: No symptoms of panic, No obsessions or compulsions, No ruminative worry Depressive Symptoms: Dsyphoria (slight) Level of Judgement: Adequate Suicide Risk and Safety Risk Assessment: Attempted suicide within last 30 days?: No Substance abuse history or abuse within last 30 days?: No Attempting or threatening suicide?: No Attempting or threatening self-harm?: No Expressing suicidal thoughts without intent?: No Expressing self-harm thoughts without intent?: No Homicidal: Homicidal Risk Current Homicidal Ideation: No Other Mental Health Assessments No formal mental health assessments were completed at this time. SUBSTANCE USE Patient did not discuss. Current Stressors Current health and medical concerns; the need for rehab placement and the uncertainty of the plan for her following this. Coping Skills/Strengths Distraction through television and Family support Support of immediate family ASSESSMENT / PLAN IMPRESSION Patient was alert and oriented for our visit. Her insight and judgement were adequate. She made minimal eye contact during the conversation, but was engaged in the discussion. Her speech was slowed andquiet, though her verbal responses were appropriate. She appeared to have insight to her needs following the hospital stay, and is planning accordingly. At times, patient was somewhat forgetful of the past, however was able to recall main events and topics. Though she is slow to respond to questions, it does not appear that her cognition is impaired to the point of needing an alternate decision maker. She may benefit from extra education and slowed conversations to ensure she understands informationpresented to her. At this time, she is planning to complete a short rehab stay, which seems appropriate based on therapy notes, nursing concerns, and her current condition. INTERVENTIONS DSM-V: deferred Role of Social Work Psychosocial Assessment Supportive Listening Discharge Planning Discussion/Education Options Provided REFERRALS: ?? [facility] ?? [facility] ?? [facility] ?? [facility] ?? [facility] ?? [facility] ?? [facility] PLAN ?? Motivation for treatment/plan: fair ?? Level of care required or recommended at discharge: skilled rehab placement ?? Social work will continue to follow for support and assistance with discharge planning Anticipated barriers to the transition of care/plan: none identified at this time. Adalberto Castro, M.S.W. 07/03/2018 Tommy Rogers - 07/02/2018 6:39 PM CDT Physical Therapy Inpatient Evaluation/Treatment SUBJECTIVE Patient's Name: Iris Metcalf Referring/Attending Provider: Douglas Ibarra M.B.B.S. Medical Diagnosis: Flutter Atrial (HCC) [I48.92] Reason for Referral: PT Evaluate and Treat safety evaluation, general cardiac evaluation and treatment Onset Date: 06/29/18 Payor: MEDICARE / Plan: MEDICARE A AND B / Product Type: Medicare / PERTINENT MEDICAL / SURGICAL HISTORY: Patient Active Problem List Diagnosis ??? Asthma NOS ??? Flutter Atrial (HCC) ??? Hypertensive Heart Disease With Heart Failure (HCC) ??? Apnea Sleep Obstructive ??? Constipation ??? [...] Hyperlipidemia On Treatment ??? Thrombus Atrial (HCC) No past surgical history on file. History of Present Illness: Atrial flutter with cardiac ablation 07/01/2018. 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 She typically grabs furniture to walk. Her ex- and son do all the cooking and shopping; she will put away dishes andsweep- these tasks have been increasingly difficult for her due to shortness of breath. She can onlywalk a few blocks before feeling winded and will go to the couch to rest (where she sleeps as well due to marital concerns). She never goes up to the second floor. Patient/Caregiver Goals: Is open to short term placement to improve functional status Patient Comments: Patient was found awake and seated in chair. She is agreeable to therapy session. She reports she is slightly fatigued from her busy days and has not slept well. Activity Orders Start Ordered 06/30/18915 Activity: As Tolerated Until discontinued Question: Activity Level: Answer: As Tolerated 06/30/18914 Precautions Other Precautions: atrial fibrillation, fall risk, cardiac Fall Risk (65 and older) Fall in the last 12 months: No Are you fearful of falling?: Yes OBJECTIVE Pain Assessment Pain Assessment: 0-10 Numeric Pain Intensity Scale Pain Score: 2 (at left knee which has been painful for many years now ) Vitals taken during session: Pulse rate: 93, 127, 137, 99 bpm, Blood pressure: 99/66, 107/65, 96/73 mmHg, MAP: 73, 77, 81, O2 sats: 95, 96, 92, 93% and O2 flow: Room air Vitals taken pre, during, and post mobility (nursing notified of patient response to activity). Subjective Dyspnea Scale (Possible range of +1 mild to +4 severe): +2 = Mild, some difficulty, noticeable to observer Lenny RPE: Post mobility 14 - Somewhat hard. Cognition Arousal/Alertness: Appropriate responses to stimuli Orientation: Oriented X4 Following Commands: Follows all commands and directions without difficulty Neuro/Integumentary Screen: Sensation: Impaired at bilateral toes, intact at soles of feet and upper leg Proprioception: Impaired at right and left great toe, intact at bilateral ankles Integumentary: Bilateral heels pink and intact. Fall Risk Factors - The patient has the following risk factor for falls/injury: Balance Impairments, Gait Impairment, Decreased muscle strength, > 4 medications or psychoactive medications, Female, Arthritis and Pain Fall Prevention Education: General footwear, foot protection, and skin checks secondary to impaired foot sensation. Fall Prevention Education: the use of a front wheeled walker to maintan safety, enhance activity tolerance and prevent falls in the future General ROM / Strength Screening ROM - Upper Extremity Screen: Addressed, no concerns noted ROM - Lower Extremity Screen: Addressed, no concerns noted Strength - Upper Extremity Screen: Addressed, no concerns noted Strength - Lower Extremity Screen: Impaired right & left (difficulty performing 5 sit<>stand transfers without use of upper extremities on chair ) Bed Mobility - Scooting Level of Assistance: Modified Independent Device: Other (chair rails ) Transfer - Sit to Stand # of Assistants: 1 Device: Front wheeled walker Level of Assistance: Minimal assistance (contact guard assistance likely progressing to supervision assist during the session ) Comments: Patient able to initiate forward weight shift and use hands on rail to achieve upright posture. Therapist assistance provided a gait belt to maintain safety. With repeated performance patientrequires increased time to stand and reports fatigue and increase in pain at her left knee. Transfer - Stand to Sit # of Assistants: 1 Level of Assistance: Minimal assistance (contact guard assistance progressing to minimal assist ) Device: Front wheeled walker Comments: Patient uses bilateral hand rails to eccentric control motion to chair with contact guard to maintain safety. With repeated performance patient progresses to requiring minimal assistance for eccentric control. Balance Static Sitting-Balance: Good (Maintains balance without support) Dynamic Sitting-Balance: Good (Maintains balance without support) Static Standing-Balance: Fair (Maintains balance with handheld assistance) Dynamic Standing-Balance: Poor (Requires assistance to maintain balance) Gait Assessment # of Assistants: 1 Level of Assistance: Minimal assistance Device: Front wheeled walker Distance (m): 18 m (1 x 12 meters, 1 x 6 meters ) Surface: wood floor, slipper socks Assessment of Gait: Flat foot gait with short bilateral step length and limited terminal hip extension. Heavy use of upper extremities on walker with mild Trendelenburg noted to the right to clear leftlower extremity. Training/Intervention: MiniBEST-13, cues to vegetable picker feet, assistantce at gait belt to maintain upright stability while stepping over obstacles Response: Patient requires assist a gait belt to maintain upright stability while in single leg stance to clear 6 inch boxes. Mild increase in shortness of breath noted with reduced gait velocity and increased lateral sway to write to elevate in clear left lower extremity by the 3rd box when cue dot vegetable picker feet. Patient reached max heart rate of 137 bpm following 10 meters of ambulation and began to feel symptoms of her heart racing. Education provided this session: continued ambulation with nursing while self- monitoring for symptoms of dyspnea with exertion; the benefits of senior care facilities and their role in therapy The patient/family educated on safe transfer techniques with functional mobility/activity. The following coordination of care occurred today: Contacted Patient's nurse and bag worker regarding discharge/safety recommendations, equipment needs/recommendations and ongoing therapy needs after hospital discharge The AVS was initiated Patient was left in bedside chair at end of session with call light in reach, all needs met and questions answered. Patient instructed to have assistance with mobility. Outcome Measures Interpretations of Measures - Tools and Additional Outcome Measures below: 30 second sit to stand test Interpretation: 8 or less = High fall Risk. Female Normal Values for Age Range Age 60-64; score of 12-17 Denis Balance Assessment Item #12 Scoring: Gait Aid Used - Front Wheeled Walker; Patient scored 2/4. Interpretation: Lower score indicates balance impairment. 4/4 - Able to stand independently and safely and complete 8 steps in 20 seconds 3/4 - Able to stand independently and complete 8 steps in greater than 20 seconds 2/4 - Able to complete 4 steps without aid with supervision 1/4 - Able to complete greater than 2 steps, needs minimal assist 0/4 - Needs assistance to keep from falling/unable to try Mini BEST 13: Gait Aid Used - Front Wheeled Walker; Patient scored 1/2. Interpretation: Lower score indicates balance impairment. 2/2 able to step over obstacles with minimal changes in speed and good balance 1/2 cautious behavior by slowing gait 0/2 hesitates, or can not safely step over obstacles TU.09 seconds Interpretation: A score of >13.5 seconds indicates an increased risk of falls. AM-PAC Inpatient Short Form: AM-PAC Mobility: How much difficulty does the patient currently have??? Turning over in bed (including adjusting bedclothes, sheets and blankets)?: A Little Sitting down on and standing up from a chair with arms (e.g., wheelchair, bedside commode, etc.): A Little Moving from lying on back to sitting on the side of the bed?: A Little AM-PAC Mobility: How much help from another person does the patient currently need??? Moving to and from a bed to a chair: A Little Need to walk in hospital room?: A Little Climbing 3-5 steps with a railing?: A Lot Basic Mobility Raw Score: 17 Basic Mobility Standardized Score: 42.13 Interpretation: Clinicians answer the AM-PAC Inpatient Short Form based on observed patient activityand/or clinical judgement (ie. patient can be scored without physically performing each activity) According to scoring guidelines: Those going to home had an average score of 20.1 Those going home with home care had an average score of 17.9 Those going to SNF had an average score of 14 Those going to IRF had an average score of 13.6 Those going to a LTAC had an average score of 11.5 Assessment Barriers to Discharge: Decreased caregiver support Discharge Recommendation: Ongoing skilled therapy recommended in a post-acute setting. From a physical therapist standpoint, patient currently requires contact guard assistance progressing to minimal assist for mobility. The patient is not at their functional baseline and would benefit from additionalphysical therapy at a short term rehab facility to assist with returning to prior level of function and to maximize safety. From a physical therapy perspective, the level of care above has been recommended for Ms. Metcalf after hospital discharge. This level of care is based on her functional abilities during today's session. This may change throughout the hospital course and will be updated as appropriate. Clinical Impression of today's session: Patient was limited in therapy due to early fatigue and generalized weakness during activity. Currently, patient presents with impairments including altered balance, compromised endurance and activity tolerance, generalized weakness resulting in the following functional deficits: difficulty in complete transfers and ambulation at a safe, independent level. Patient states she feels more unsteady when she walks and her performance on the miniBEST-13 and TUG show that she is at higher risk for falls. She scores below her normative age group on the 30 second sit<>stand which is likely due to her weakness and intolerance for heavy activity. At this time, patient is unsafe to return home and wouldbenefit from short term placement to maximize functional independence and address impairments in safety, pain, balance, strength and endurance. Rehab potential: Ms. Metcalf has Good potential to achieve established physical therapy goals within the time frame outlined below. Tiered PT Evaluation Codes: Personal Factors: Age, Living situation, Needs assistive device, Sedentary lifestyle Comorbidities: hypertension, hyperlipidemia, type 2 diabetes mellitus fibromyalgia, atrial flutter Examination elements: 4+ Clinical Presentation: Evolving Clinical Decision Making: Moderate: 1-2 complicating factors, 3 eval elements, evolving clinical presentation Functional Goals: PT Inpatient Goals PT Goal #1: Patient will be able to ambulate 40 meters with contact guard assist using front wheeledwalker while executing the task with good safety awareness, stability, and functional strength. PT Goal #2: Patient will be able to negotiate 4 steps with modified independence using a single railwhile executing the task with good safety awareness, stability, and functional strength. PT Goal #3: Patient will demonstrate improved sit to stand transfers modified independently to demonstrate improved functional mobility and independence. Plan Patient agrees with the plan of care and goals. Treatment Plan: PT Frequency: 5x/week PT Duration: until goals are met or hospital discharge Requires Inpatient Follow-Up: Yes PT - Next Inpatient Appointment: 07/03/18 Plan Comments: DGI-4, alternating step test, lower extremity training program Treatment interventions may include: Therapeutic exercise, Therapeutic functional activity, Neuromuscular re- education, Gait training Billing: Time Spent with Patient PT Evaluation (min): 12 min Therapeutic Activity (min): 27 min Total Timed Units (min): 27 min Total Treatment Time (min): 39 min Functional G-code Worksheet Basic Mobility Raw Score: 17 Basic Mobility Standardized Score: 42.13 CMS 0-100% Score: 50.57 % Basic Mobility CMS Modifier: CK Tommy Rogers, SPT Associated attestation - Ally Canela P.T., D.P.T. - 07/03/2018 7:49 AM CDT This therapist has reviewed all documentation and supervised today's session. This therapist agrees with the plan of care developed in collaboration with the patient. Priyanka Emerson R.N. - 06/30/2018 9:05 AM CDTAssociated Order(s): IP CONSULT TO CARE MANAGEMENT Discharge Planning Assessment SUBJECTIVE Met with patient to discuss potential dismissal needs. Patient is planning on dismissing to her son,Des clark when medically ready for discharge. Referral Data Referral Source: Early Screen for Discharge Planning Referral Reason: Discharge Planning Discharge Planning: Early screen discharge, Home health Who was present during the interview?: Patient Chief Mechanical Engineer Services Used: No Patient Information Primary Caregiver: Self Support System: Immediate family Legal Information Legal Decision Maker: Self OBJECTIVE Patient appears to have some understanding into her own needs and is anticipating DC needs. I recommended the following: kasia cunningham Functional Status (ADLs) Functional Status: Minimum assistance Assistive Devices: None Type of Residence: Private residence Level of Assistance: Independent Dressing: Independent Feeding: Independent Bathing: Independent Grooming: Independent Toileting: Independent Behavior: Forgetful Communication: Talks, Understands speaking, Understands Vietnamese Environmental Supports Home Environment: Apartment Anticipated Modifications to the Patient's Home: Kasia Cunningham Anticipated Needs/Assistive Devices ADL Anticipated Needs: Medication Set-up/Administration, Housekeeping, Transportation Use (drive car, use taxi/bus) Equipment Anticipated Needs: Walker, Grab Bars - Wall, Grab Bars - Toilet Transportation Needs: Public transportation, Support from family Finance/Insurance Primary insurance: MEDICARE A AND B Secondary insurance: N/A Discharge Planning Barriers To Discharge: Comorbidities Strengths: Support of immediate family Type of Residence: Private residence Support Systems: Children Home Care Services: Yes Type of Home Care Services: Home PT, Nurse visit, Home health aide Home Care Agency Name : [facility] Anticipated Discharge Destination: Home-Health Care c Does the patient need discharge transport arranged?: No ASSESSMENT / PLAN ??Assessment: Met with the patient to discuss her prior level of care and home going needs. I reviewed my role of Web Machine Tender. Patient reviewed her current hospitalization and appears to have some insight to her needs. Patient states she lives in a 2 bedroom ap[artment on main floor with her youngest son, Tony and her ex partner. Both Tony and her ex-partner do not drive. Patient admits to being very sleepy which causes her to be noncompliant with her medication. Patient reviewed her home environment and support system; reviewing that her primary care clinician is herself. She reports that she needs help with medication and home keeping. She will need medication management post discharge and may need additional services. Patient reports only being able to walk a couple blocks and then needs to sit down due to SOB. Patient also states she will need a walker because of gait unsteadiness. I will follow up with PT/OT after their evaluation of patient today. Patient plans on dismissing to her oldest son's (Yaya)??home when medically ready to dismiss. Patient states she will stay there a few weeks and is hoping tomove to the [facility] in an assisted living facility. Patient did add that her son does work fulltime, so he will not be home to give her 24 hour assistance. I have a call into her son, Yaya to confirm a safe transition back to home. (JULIANNA on file) Son was unavailable, so I left a message. I will start the reconnection process with the [facility] company and follow up with the discharge plan later today. Spoke to patient's son, Yaya, about dismissal plan for patient, Yaya said patient was going to stay with him for a couple weeks and then go back home to [place]. Yaya said she does live with his other brother, but he also works. I expressed my concerns with Ms. Iris Metcalf being able to remember to take her medications on time. Yaya verbalized understanding and is open tofurther assessments for additional services for patient. Plan: 1. Patient plans to return home with son once medically stable for DC 2. Resources given:None 3. CM will continue to follow for any needs that arise. 4. Transportation home will be provided by Self/Family son will be driving her to his home. 5. Reconnections needed [facility] Signed by: Priyanka Emerson R.N. 06/30/2018 documented in this encounter Nursing Notes Jessica Dominguez R.N. - 07/06/2018 9:27 AM CDT Report called to facility; fax sent with outside records & staff verbalized understanding of AVSand dismissal education. Renetta Carney R.N. - 07/05/2018 10:48 PM CDT SAFETY ADULT - RISK FOR FALL AND OR FALL INJURY ??? Patient remains free from fall/fall injury Progressing Shift Goals: Clinical Goals for the Shift: Pt will remain free from falls throughout shift. Identify possible barriers to meeting goals/advancing plan of care: BLE weakness/pain at times. End of Shift Summary: Goal met, pt remained from from falls throughout shift. Electronically signed by: Renetta Carney R.N. 07/06/18 5:19 AM Renetta Carney R.N. - 07/05/2018 5:13 AM CDT PAIN - ADULT ??? PT VERBALIZES/DEMONSTRATES ADEQUATE COMFORT LEVEL OR BASELINE Progressing Shift Goals: Clinical Goals for the Shift: Pt will verbalize adequate pain control Identify possible barriers to meeting goals/advancing plan of care: Refusal of pharmacological and nonpharmacological pain relieving measures. End of Shift Summary: Goal met, pt report pain tolerable with the use of pain medication PRN and ambulating in hallway. Electronically signed by: Renetta Carney R.N. 07/05/18 6:55 AM Rosemarie Nelson R.N. - 07/04/2018 10:27 PM CDT Shift Goals: Clinical Goals for the Shift: Pt will tolerate increased activity Identify possible barriers to meeting goals/advancing plan of care: Heart rate still increasing withactivity End of Shift Summary: Patient tolerated ambulating in fraire without dyspnea or other symptoms, but heart rate 120-130s during ambulation. Will continue to monitor. Jennyfer Herrera R.N. - 07/03/2018 2:32 PM CDT Problem: KNOWLEDGE DEFICIT Goal: Patient/family/caregiver demonstrates understanding of disease process, treatment plan, medications, and discharge instructions Outcome: Progressing Comments: Shift Goals: Clinical Goals for the Shift: Patient will verbalize an understanding of her treatment plan. Identify possible barriers to meeting goals/advancing plan of care: none End of Shift Summary: Visited with nurse from SNF about going there for rehab. Jessica Dominguez RMary Ann - 07/03/2018 6:35 AM CDT Problem: PAIN - ADULT Goal: PT VERBALIZES/DEMONSTRATES ADEQUATE COMFORT LEVEL OR BASELINE Outcome: Progressing Comments: Shift Goals: Clinical Goals for the Shift: Patient will adequately report pain throughout shift Identify possible barriers to meeting goals/advancing plan of care: None End of Shift Summary: Goal met So Ray R.N. - 07/02/2018 7:14 PM CDT SAFETY ADULT ??? Maintain a safe environment Progressing Shift Goals: Clinical Goals for the Shift: Patient will remain safe throughout shift Identify possible barriers to meeting goals/advancing plan of care: cognitive delay End of Shift Summary: Patient is using her call light appropriately and remained safe without falls Jessica Dominguez R.N. - 07/02/2018 6:56 AM CDT Problem: CARDIOVASCULAR - ADULT Goal: Maintains optimal cardiac output and hemodynamic stability Outcome: Progressing Comments: Shift Goals: Clinical Goals for the Shift: Patient will remain hemodynamically stable throughout shift. Identify possible barriers to meeting goals/advancing plan of care: None End of Shift Summary: Goal met So Ray R.N. - 07/01/2018 6:44 PM CDT PAIN - ADULT ??? PT VERBALIZES/DEMONSTRATES ADEQUATE COMFORT LEVEL OR BASELINE Progressing Shift Goals: Clinical Goals for the Shift: Patient will verbalize adequate pain control Identify possible barriers to meeting goals/advancing plan of care: chronic pain End of Shift Summary: Patient verbalizes adequate pain control Renetta Carney R.N. - 06/30/2018 11:19 PM CDT PAIN - ADULT ??? PT VERBALIZES/DEMONSTRATES ADEQUATE COMFORT LEVEL OR BASELINE Progressing Shift Goals: Clinical Goals for the Shift: Pt will report pain as tolerable throughout shift Identify possible barriers to meeting goals/advancing plan of care: Pt refusing pain medication or nonpharmacological pain relieving measures. End of Shift Summary: Goal met, pt reported pain as tolerable throughout shift with use of medication. Electronically signed by: Renetta Carney R.N. 06/30/18 11:20 PM documented in this encounter Miscellaneous Notes Hospital Course - Bella Danielson P.A.-C., M.S. - 06/30/2018 1:51 PM CDT Ms. Metcalf is a 63 y.o. female who was admitted to the [facility] for management of atrial flutter. She has a past medical history of recurrent atrial flutter, hypertension, chronic diastolic heart failure, hyperlipidemia, depression with anxiety and dependent personality disorder. She was recently admitted at the [facility] from 06/22/2018 - 06/23/2018, where she was treated for atrial fibrillation/flutter with diltiazem drip and self converted to sinus rhythm. As a result, her metoprolol increased to 100 mg b.i.d. and she was dismissed. During her follow-up visit, she was noted to have recurrent atrial flutter. Electrocardiogram obtained revealed atrial flutter with ventricular rates 140 with 2-1 AV block. Thediltiazem drip was initiated, which transiently controlled her rates. On the morning of 06/30/2018, she had recurrence of rapid rates despite diltiazem and re-initiation of metoprolol. Transesophageal echo cardiogram demonstrated a mobile left atrial thrombus. Due to the thrombus atrial flutter ablation was canceled. Xarelto was discontinued. Intravenous heparin was initiated. Coumadin was initiated with a INR goal of 2.5-3.5. Heart rate control was obtained with Diltiazem XR and Metoprolol. Cardioversion was contraindicated with the mobile left atrial thrombus and anti-rhythmics that could potentially convert to sinus rhythm also need to be avoided. Repeat transesophageal echo to ensure resolution of thrombus within the left atrium followed by cardioversion should be pursued in 6 weeks. At that time atrial flutter ablation can be considered. Oxygen was weaned off prior to discharge. PT/OT was consulted due to weakness and decreased caregiver support at home. intermediate facility placement was recommended post-discharge. Social work assisted with discharge planning. Patient discharged in stable condition on 07/06/2018 to [facility]. documented in this encounter Plan of Treatment Not on filedocumented as of this encounter Procedures Procedure Name Priority Date/Time Associated Comments Diagnosis PROTHROMBIN TIME Routine 07/06/2018 6:26 Results for (PT), P AM CDT this procedure are in the results section. CBC WITHOUT Routine 07/06/2018 6:26 Results for DIFFERENTIAL, B AM CDT this procedu re are in the results section. BASIC METABOLIC Routine 07/06/2018 6:26 Results f or PANEL, S/P AM CDT this procedure are in the results section. ADULT OXYGEN THERAPY Routine 07/05/2018 8:00 AM CDT CBC WITHOUT Routine 07/05/2018 6:34 Results for DIFFERENTIAL, B AM CDT this procedu re are in the results section. PROTHROMBIN TIME Routine 07/05/2018 6:33 Results for (PT), P AM CDT this procedure are in the results section. BASIC METABOLIC Routine 07/05/2018 6:33 Results f or PANEL, S/P AM CDT this procedure are in the results section. MAGNESIUM, S Routine 07/05/2018 6:29 Results for AM CDT this procedure are in the results section. ADULT OXYGEN THERAPY Routine 07/04/2018 8:01 PM CDT ADULT OXYGEN THERAPY Routine 07/04/2018 8:00 AM CDT PROTHROMBIN TIME Routine 07/04/2018 6:30 Results for (PT), P AM CDT this procedure are in the results section. CBC WITHOUT Routine 07/04/2018 6:30 Results for DIFFERENTIAL, B AM CDT this procedu re are in the results section. BASIC METABOLIC Routine 07/04/2018 6:30 Results f or PANEL, S/P AM CDT this procedure are in the results section. ADULT OXYGEN THERAPY Routine 07/03/2018 8:00 PM CDT ECG Routine 07/03/2018 9:41 Results for AM CDT this procedure are in the results section. ADULT OXYGEN THERAPY Routine 07/03/2018 8:00 AM CDT ACTIVATED PARTIAL Routine 07/03/2018 5:30 Results for THROMBOPLASTIN TIME AM CDT this pro cedure (APTT), P are in the results section. PROTHROMBIN TIME Routine 07/03/2018 5:30 Results for (PT), P AM CDT this procedure are in the results section. CBC WITHOUT Routine 07/03/2018 5:30 Results for DIFFERENTIAL, B AM CDT this procedu re are in the results section. BASIC METABOLIC Routine 07/03/2018 5:30 Results f or PANEL, S/P AM CDT this procedure are in the results section. GLUCOSE POCT, B Routine 07/03/2018 5:29 Results f or AM CDT this procedure are in the results section. GLUCOSE POCT, B Routine 07/03/2018 2:13 Results f or AM CDT this procedure are in the results section. ACTIVATED PARTIAL Timed 07/02/2018 9:01 Results for THROMBOPLASTIN TIME PM CDT this pro cedure (APTT), P are in the results section. GLUCOSE POCT, B Routine 07/02/2018 5:34 Results f or PM CDT this procedure are in the results section. ACTIVATED PARTIAL Timed 07/02/2018 1:27 Results for THROMBOPLASTIN TIME PM CDT this pro cedure (APTT), P are in the results section. GLUCOSE POCT, B Routine 07/02/2018 1:16 Results f or PM CDT this procedure are in the results section. ADULT OXYGEN THERAPY Routine 07/02/2018 8:01 AM CDT GLUCOSE POCT, B Routine 07/02/2018 6:41 Results f or AM CDT this procedure are in the results section. THYROID FUNCTION Routine 07/02/2018 5:23 Results for CASCADE, S AM CDT this procedure are in the results section. ACTIVATED PARTIAL Timed 07/02/2018 5:23 Results for THROMBOPLASTIN TIME AM CDT this pro cedure (APTT), P are in the results section. PROTHROMBIN TIME Routine 07/02/2018 5:23 Results for (PT), P AM CDT this procedure are in the results section. CBC WITHOUT Routine 07/02/2018 5:23 Results for DIFFERENTIAL, B AM CDT this procedu re are in the results section. BASIC METABOLIC Routine 07/02/2018 5:23 Results f or PANEL, S/P AM CDT this procedure are in the results section. ACTIVATED PARTIAL STAT 07/01/2018 10:04 Result s for THROMBOPLASTIN TIME PM CDT this pro cedure (APTT), P are in the results section. GLUCOSE POCT, B Routine 07/01/2018 9:49 Results f or PM CDT this procedure are in the results section. ACTIVATED PARTIAL Timed 07/01/2018 9:12 Results for THROMBOPLASTIN TIME PM CDT this pro cedure (APTT), P are in the results section. ADULT OXYGEN THERAPY Routine 07/01/2018 8:01 PM CDT GLUCOSE POCT, B Routine 07/01/2018 5:34 Results f or PM CDT this procedure are in the results section. PROTHROMBIN TIME STAT 07/01/2018 1:55 Results for (PT), P PM CDT this procedure are in the results section. GLUCOSE POCT, B Routine 07/01/2018 1:11 Results f or PM CDT this procedure are in the results section. (MICHAEL) 2D WITH COLOR, Routine 07/01/2018 12:17 Res ults for LIMITED DOPPLER AND PM CDT this pro cedure CONTRAST are in the results section. ECG STAT 07/01/2018 9:44 Results for AM CDT this procedure are in the results section. MICROSCOPIC MANUAL Routine 07/01/2018 9:28 Result s for AM CDT this procedure are in the results section. URINALYSIS WITH Routine 07/01/2018 9:28 Results f or MICROSCOPIC AM CDT this procedure are in the results section. ADULT OXYGEN THERAPY Routine 07/01/2018 8:01 AM CDT GLUCOSE POCT, B Routine 07/01/2018 5:51 Results f or AM CDT this procedure are in the results section. BASIC METABOLIC Routine 07/01/2018 5:50 Results f or PANEL, S/P AM CDT this procedure are in the results section. GLUCOSE POCT, B Routine 06/30/2018 9:38 Results f or PM CDT this procedure are in the results section. ECG Routine 06/30/2018 8:54 Results for PM CDT this procedure are in the results section. ADULT OXYGEN THERAPY Routine 06/30/2018 8:01 PM CDT GLUCOSE POCT, B Routine 06/30/2018 4:28 Results f or PM CDT this procedure are in the results section. GLUCOSE POCT, B Routine 06/30/2018 11:18 Results for AM CDT this procedure are in the results section. ADULT OXYGEN THERAPY Routine 06/30/2018 8:01 AM CDT CBC WITH Routine 06/30/2018 6:01 Results for DIFFERENTIAL, B AM CDT this procedu re are in the results section. BASIC METABOLIC Routine 06/30/2018 6:01 Results f or PANEL, S/P AM CDT this procedure are in the results section. GLUCOSE POCT, B Routine 06/30/2018 6:00 Results f or AM CDT this procedure are in the results section. MAGNESIUM, S Routine 06/30/2018 5:57 Results for AM CDT this procedure are in the results section. DX CHEST AP OR PA AND RAD - Routine 06/29/2018 9:25 Re sults for LATERAL 2 VIEWS (most inpatients PM CDT this pro cedure and all are in the outpatients) results section. LIPID PANEL, S Routine 06/29/2018 7:25 Results fo r PM CDT this procedure are in the results section. NT-PRO B-TYPE Routine 06/29/2018 7:25 Results for NATRIURETIC PEPTIDE PM CDT this pro cedure (BNP), S are in the results section. IRON AND TOT Routine 06/29/2018 7:25 Results for IRON-BINDING PM CDT this procedure CAPACITY, S/P are in the results section. PROTHROMBIN TIME Routine 06/29/2018 7:25 Results for (PT), P PM CDT this procedure are in the results section. CBC WITH Routine 06/29/2018 7:25 Results for DIFFERENTIAL, B PM CDT this procedu re are in the results section. THYROID-STIMULATING Routine 06/29/2018 7:25 Resul ts for HORMONE-SENSITIVE PM CDT this proce dure (S-TSH) are in the results section. MAGNESIUM, S Routine 06/29/2018 7:25 Results for PM CDT this procedure are in the results section. COMPREHENSIVE Routine 06/29/2018 7:25 Results for METABOLIC PANEL, S/P PM CDT this pr ocedure are in the results section. ECG Routine 06/29/2018 6:26 Results for PM CDT this procedure are in the results section. ADULT OXYGEN THERAPY Routine 06/29/2018 6:17 PM CDT documented in this encounter Results (ABNORMAL) CBC without Differential (07/06/2018 6:26 AM CDT) [facility] Method Time Signature Hemoglobin 12.8 11.6 - 07/06/2018 [facility] 15.0 g/dL 6:53 AM CDT LABORATORIES - [facility] Hematocrit 39.7 35.5 - 07/06/2018 [facility] 44.9 % 6:53 AM CDT LABORATORIES [facility] Erythrocytes 4.55 3.92 - 07/06/2018 [facility] 5.13 6:53 AM CDT LABORATORIES - x10(12)/L [facility] MCV 87.3 78.2 - 07/06/2018 [facility] 97.9 fL 6:53 AM CDT LABORATORIES - [facility] RBC Distrib 14.3 12.2 - 07/06/2018 [facility] Width 16.1 % 6:53 AM CDT LABORATORIES - [facility] Platelet Count 475 (H) 157 - 371 07/06/2018 [facility] x10(9)/L 6:53 AM CDT LABORATORIES - [facility] Leukocytes 9.8 (H) 3.4 - 9.6 07/06/2018 [facility] x10(9)/L 6:53 AM CDT LABORATORIES - [facility] Specimen Anatomical Collection Method Collection Time Receive d Time (Source) Location / / Volume Laterality Blood (Blood, 07/06/2018 6:26 AM 07/07/19 19 6:45 Venous) CDT AM CDT Oralia Ricks APRN, C.N.P. LAB BLOOD ADD-ON Performing Organization Address City/[facility] Phon e Number [facility] LABORATORIES - [address] (ABNORMAL) Prothrombin Time (PT/INR) (07/06/2018 6:26 AM CDT) [facility] Method Time Signature Prothrombin 28.9 (H) 9.4 - 07/06/2018 [facility] Time, P 12.5 sec 7:06 AM CDT LABORATORIES - [facility] INR 2.6 0.9 - 1.1 07/06/2018 [facility] 7:06 AM CDT LABORATORIES - [facility] Comment: ----ADDITIONAL INFORMATION---- Standard intensity warfarin therapeutic range: 2.0 to 3.0 ?? High intensity warfarin therapeutic rang e: 2.5 to 3.5 Specimen Anatomical Collection Method Collection Time Receive d Time (Source) Location / / Volume Laterality Blood (Blood, 07/06/2018 6:26 AM 07/07/19 19 6:45 Venous) CDT AM CDT Oralia Ricks APRN, C.N.P. LAB BLOOD ADD-ON Performing Organization Address [facility] Phon e Number [facility] LABORATORIES - [address] [place] [phone] [facility] Basic Metabolic Panel (07/06/2018 6:26 AM CDT) Analysis Performed At Patho logist Time Signature Potassium, S 4.3 3.6 - 5.2 07/06/2018 [facility] mmol/L 7:25 AM CDT [facility] Sodium, S 139 135 - 145 07/06/2018 [facility] mmol/L 7:25 AM CDT LABORATORIES [facility] Chloride, S 102 98 - 107 07/06/2018 [facility] mmol/L 7:25 AM CDT LABORATORIES [facility] Bicarbonate, S 24 22 - 29 07/06/2018 [facility] mmol/L 7:25 AM CDT LABORATORIES [facility] Anion Gap 13 7 - 15 07/06/2018 [facility] 7:25 AM CDT [facility] BUN (Blood Urea 19 6 - 21 07/06/2018 [facility] Nitrogen), S mg/dL 7:25 AM T [facility] Creatinine 0.99 0.59 - 07/06/2018 [facility] 1.04 mg/dL 7:25 AM T [facility] eGFR-Non 62 >=60 07/06/2018 [facility] Black/ mL/min/BSA 7:25 AM CDT LABORATORIES [facility] Comment: ----ADDITIONAL INFORMATION---- Estimated GFR calculated using the 2009 CKD_EPI creatinine equation. eGFR-Black/ 71 >=60 mL/min/BSA [facility] Comment: ----ADDITIONAL INFORMATION---- Estimated GFR calculated using the 2009 CKD_EPI creatinine equation. Calcium, Total, S 9.3 8.8 - 10.2 mg/dL 07/06/2018 7:25 AM [facility] CDT [facility] S Glucose, S 107 70 - 140 mg/dL 07/06/2018 7:25 [facility] Specimen Anatomical Collection Method Collection Time Receive d Time (Source) Location / / Volume Laterality Blood (Blood, 07/06/2018 6:26 AM 07/07/19 19 6:45 Venous) CDT AM CDT Bella Danielson P.A.-C., M.S. LAB BLOOD ADD-ON Performing Organization Address City/State/ZIP Code Phon e Number [facility] [address] [phone] [facility] (ABNORMAL) CBC without Differential (07/05/2018 6:34 AM CDT) [facility] Method Time Signature Hemoglobin 13.2 11.6 - 07/05/2018 [facility] 15.0 g/dL 7:14 AM CDT LABORATORIES - [facility] Hematocrit 42.1 35.5 - 07/05/2018 [facility] 44.9 % 7:14 AM CDT LABORATORIES - [facility] Erythrocytes 4.75 3.92 - 07/05/2018 [facility] 5.13 7:14 AM CDT LABORATORIES - x10(12)/L [facility] MCV 88.6 78.2 - 07/05/2018 [facility] 97.9 fL 7:14 AM CDT [facility] RBC Distrib 14.1 12.2 - 07/05/2018 [facility] Width 16.1 % 7:14 AM CDT LABORATORIES - [facility] Platelet Count 490 (H) 157 - 371 07/05/2018 [facility] x10(9)/L 7:14 AM CDT [facility] - [facility] Leukocytes 9.6 3.4 - 9.6 07/05/2018 [facility] x10(9)/L 7:14 AM CDT [facility] Specimen Anatomical Collection Method Collection Time Receive d Time (Source) Location / / Volume Laterality Blood (Blood, 07/05/2018 6:34 AM 07/06/19 19 7:11 Venous) CDT AM CDT Oralia Ricks APRN, C.N.P. LAB BLOOD ADD-ON Performing Organization Address City/State/[facility] Phon e Number [facility] LABORATORIES - [address] [phone] [facility] (ABNORMAL) Prothrombin Time (PT/INR) (07/05/2018 6:33 AM CDT) [facility] Method Time Signature Prothrombin 30.5 (H) 9.4 - 07/05/2018 [facility] Time, P 12.5 sec 7:36 AM CDT LABORATORIES [facility] INR 2.7 0.9 - 1.1 07/05/2018 [facility] 7:36 AM CDT LABORATORIES [facility] Comment: ----ADDITIONAL INFORMATION---- Standard intensity warfarin therapeutic range: 2.0 to 3.0 ?? High intensity warfarin therapeutic rang e: 2.5 to 3.5 Specimen Anatomical Collection Method Collection Time Receive d Time (Source) Location / / Volume Laterality Blood (Blood, 07/05/2018 6:33 AM 07/06/19 19 7:11 Venous) CDT AM CDT Oralia Ricks APRN, C.N.P. LAB BLOOD ADD-ON Performing Organization Address City/State/ZIP Code Phon e Number [facility] LABORATORIES - [address] [place], [place] [address] [facility] (ABNORMAL) Basic Metabolic Panel (07/05/2018 6:33 AM CDT) [facility] gist Method Time Signature Potassium, S 4.6 3.6 - 5.2 07/05/2018 [facility] mmol/L 7:49 AM CDT LABORATORIES - [facility] Sodium, S 139 135 - 145 07/05/2018 [facility] mmol/L 7:49 AM CDT LABORATORIES - [facility] Chloride, S 100 98 - 107 07/05/2018 [facility] mmol/L 7:49 AM CDT LABORATORIES - [facility] Bicarbonate, S 26 22 - 29 07/05/2018 [facility] mmol/L 7:49 AM CDT LABORATORIES - [facility] Anion Gap 13 7 - 15 07/05/2018 [facility] 7:49 AM CDT LABORATORIES - [facility] BUN (Blood 21 6 - 21 07/05/2018 [facility] Urea mg/dL 7:49 AM CDT LABORATORIES - Nitrogen), S [facility] Creatinine 1.20 (H) 0.59 - 07/05/2018 [facility] 1.04 7:49 AM CDT LABORATORIES - mg/dL [facility] eGFR-Non 49 (L) >=60 07/05/2018 [facility] Black/ mL/min/BS 7:49 AM CDT LABORATORIES - [place] [facility] Comment: ----ADDITIONAL INFORMATION---- Estimated GFR calculated using the 2009 CKD_EPI creatinine equation. eGFR-Black/ 56 (L) >=60 mL/min/BSA 07/05/2018 7:49 [facility] [place] AM CDT LABORATORIES - [facility] Comment: ----ADDITIONAL INFORMATION---- Estimated GFR calculated using the 2009 CKD_EPI creatinine equation. Calcium, Total, S 9.3 8.8 - 10.2 mg/dL 07/05/2018 7:49 AM [facility] CDT LABORATORIES - [facility] S Glucose, S 115 70 - 140 mg/dL 07/05/2018 7:49 AM [facility] CDT LABORATORIES - [facility] S Specimen Anatomical Collection Method Collection Time Receive d Time (Source) Location / / Volume Laterality Blood (Blood, 07/05/2018 6:33 AM 07/06/19 19 7:11 Venous) CDT AM CDT Ana Butts APRN.N.P. LAB BLOOD ADD-ON Performing Organization Address City/[facility] Phon e Number [facility] LABORATORIES - [address] [phone] [facility] Magnesium (07/05/2018 6:29 AM CDT) P athologist Signature Magnesium, S 1.8 1.7 - 2.3 07/05/2018 [facility] mg/dL 10:34 AM CDT LABORATORIES - [facility] Specimen Anatomical Collection Method Collection Time Receive d Time (Source) Location / / Volume Laterality Blood (Blood, 07/05/2018 6:29 AM 07/06/19 19 Venous) CDT 10:19 AM CDT Bella Danielson P.A.-C., M.S. LAB BLOOD ADD-ON Performing Organization Address [facility] Code Phon e Number [facility] LABORATORIES - [address] [phone] [facility] (ABNORMAL) Prothrombin Time (PT/INR) (07/04/2018 6:30 AM CDT) Patholo gist Method Time Signature Prothrombin 20.8 (H) 9.4 - 07/04/2018 [facility] Time, P 12.5 sec 7:02 AM CDT LABORATORIES - [facility] INR 1.9 0.9 - 1.1 07/04/2018 [facility] 7:02 AM CDT LABORATORIES - [facility] Comment: ----ADDITIONAL INFORMATION---- Standard intensity warfarin therapeutic range: 2.0 to 3.0 ?? High intensity warfarin therapeutic rang e: 2.5 to 3.5 Specimen Anatomical Collection Method Collection Time Receive d Time (Source) Location / / Volume Laterality Blood (Blood, 07/04/2018 6:30 AM 07/05/19 19 6:45 Venous) CDT AM CDT Oralia Ricks APRN, C.N.P. LAB BLOOD ADD-ON Performing Organization Address [facility] Phon e Number [facility] LABORATORIES - [address] [phone] [facility] (ABNORMAL) CBC without Differential (07/04/2018 6:30 AM CDT) [facility] Method Time Signature Hemoglobin 13.2 11.6 - 07/04/2018 [facility] 15.0 g/dL 6:54 AM CDT LABORATORIES - [facility] Hematocrit 41.4 35.5 - 07/04/2018 [facility] 44.9 % 6:54 AM CDT LABORATORIES - [facility] Erythrocytes 4.70 3.92 - 07/04/2018 [facility] 5.13 6:54 AM CDT LABORATORIES - x10(12)/L [facility] MCV 88.1 78.2 - 07/04/2018 [facility] 97.9 fL 6:54 AM CDT LABORATORIES - [facility] RBC Distrib 14.2 12.2 - 07/04/2018 [facility] Width 16.1 % 6:54 AM CDT LABORATORIES - [facility] Platelet Count 492 (H) 157 - 371 07/04/2018 [facility] x10(9)/L 6:54 AM CDT LABORATORIES - [facility] Leukocytes 9.1 3.4 - 9.6 07/04/2018 [facility] x10(9)/L 6:54 AM CDT LABORATORIES - [facility] Specimen Anatomical Collection Method Collection Time Receive d Time (Source) Location / / Volume Laterality Blood (Blood, 07/04/2018 6:30 AM 07/05/19 19 6:45 Venous) CDT AM CDT Oralia Ricks APRN, C.N.P. LAB BLOOD ADD-ON Performing Organization Address City/[facility] Code Phon e Number [facility] LABORATORIES - [address] [phone] [facility] (ABNORMAL) Basic Metabolic Panel (07/04/2018 6:30 AM CDT) [facility] [employer] Method Time Signature Potassium, S 4.7 3.6 - 5.2 07/04/2018 [facility] mmol/L 7:20 AM CDT LABORATORIES - [facility] Sodium, S 138 135 - 145 07/04/2018 [facility] mmol/L 7:20 AM CDT LABORATORIES - [facility] Chloride, S 100 98 - 107 07/04/2018 [facility] mmol/L 7:20 AM CDT LABORATORIES - [facility] Bicarbonate, S 25 22 - 29 07/04/2018 [facility] mmol/L 7:20 AM CDT LABORATORIES - [facility] Anion Gap 13 7 - 15 07/04/2018 [facility] 7:20 AM CDT LABORATORIES - [facility] BUN (Blood 18 6 - 21 07/04/2018 [facility] Urea mg/dL 7:20 AM CDT LABORATORIES - Nitrogen), S [facility] Creatinine 1.06 (H) 0.59 - 07/04/2018 [facility] 1.04 7:20 AM CDT LABORATORIES - mg/dL [facility] eGFR-Non 57 (L) >=60 07/04/2018 [facility] Black/ mL/min/BS 7:20 AM CDT LABORATORIES - [place] A [facility] Comment: ----ADDITIONAL INFORMATION---- Estimated GFR calculated using the 2009 CKD_EPI creatinine equation. eGFR-Black/ 65 >=60 mL/min/BSA 07/04/2018 7:20 [facility] [place] AM CDT LABORATORIES - [facility] Comment: ----ADDITIONAL INFORMATION---- Estimated GFR calculated using the 2009 CKD_EPI creatinine equation. Calcium, Total, S 9.4 8.8 - 10.2 mg/dL 07/04/2018 7:20 AM [facility] CDT LABORATORIES - [facility] Glucose, S 138 70 - 140 mg/dL 07/04/2018 7:20 AM [facility] CDT LABORATORIES - [facility] Specimen Anatomical Collection Method Collection Time Receive d Time (Source) Location / / Volume Laterality Blood (Blood, 07/04/2018 6:30 AM 07/05/19 19 6:45 Venous) CDT AM CDT Oralia Ricks APRN, C.N.P. LAB BLOOD ADD-ON Performing Organization Address City/State/ZIP Code Phon e Number [facility] LABORATORIES - [address] [place], [place] [address] [facility] ECG 12 Lead (07/03/2018 9:41 AM CDT) [facility] gist Method Time Signature Ventricular 80 BPM MUSE Rate ECG/Min QRSD Interval 94 ms MUSE QT Interval 430 ms MUSE QTC Interval 497 ms MUSE P [place] -113 degrees MUSE R [place] 94 degrees MUSE T Wave [place] -74 degrees MUSE CODED DIAGNOSIS Atrial MUSE flutter CODED DIAGNOSIS Atrial MUSE flutter Specimen Anatomical Collection Method Collection Time Receive d Time (Source) Location / / Volume Laterality 07/03/2018 9:41 AM 9 9:48 CDT AM CDT Impressions MUSE - 07/03/2018 9:48 AM CDT Atrial flutter with variable A-V block Rightward axis Nonspecific ST and T wave abnormality When compared with ECG of 01-JUL-2018 09 :44, Vent. rate has decreased BY ??57 BPM Atrial flutter is now with with variable A-V block Narrative This result has an attachment that is no t available. Procedure Note Ricardo Magallanes M.D. - 07/03/2018Form atting of this note might be different from the original. IMPRESSION: Atrial flutter with variable A-V block Rightward axis Nonspecific ST and T wave abnormality When compared with ECG of 01-JUL-2018 09 :44, Vent. rate has decreased BY 57 BPM Atrial flutter is now with with variable A-V block Oralia Ricks APRN, C.N.P. ECG ORDERABLES Performing Organization Address City/State/ZIP Code Phon e Number MUSE MUSE NA (ABNORMAL) APTT (Activated Partial Thromboplastin Time) (07/03/2018 5:30 AM CDT) Analysis Performed At [facility] logist Time Signature Activated 79 (H) 25 - 37 07/03/2018 [facility] Partial sec 6:26 AM CDT LABORATORIES - [facility] Specimen Anatomical Collection Method Collection Time Receive d Time (Source) Location / / Volume Laterality Blood (Blood, 07/03/2018 5:30 AM 07/04/19 19 6:07 Venous) CDT AM CDT Douglas Pham LAB BLOOD ADD-ON Performing Organization Address City/State/ZIP Code Phon e Number [facility] LABORATORIES - [address] [place], [place] [address] [facility] (ABNORMAL) Prothrombin Time (PT/INR) (07/03/2018 5:30 AM CDT) [facility] gist Method Time Signature Prothrombin 14.2 (H) 9.4 - 07/03/2018 [facility] Time, P 12.5 sec 6:26 AM CDT LABORATORIES [facility] INR 1.3 0.9 - 1.1 07/03/2018 [facility] 6:26 AM CDT LABORATORIES - [facility] Comment: ----ADDITIONAL INFORMATION---- Standard intensity warfarin therapeutic range: 2.0 to 3.0 ?? High intensity warfarin therapeutic rang e: 2.5 to 3.5 Specimen Anatomical Collection Method Collection Time Receive d Time (Source) Location / / Volume Laterality Blood (Blood, 07/03/2018 5:30 AM 07/04/19 19 6:07 Venous) CDT AM CDT Kadeem Carr APRNN.P. LAB BLOOD ADD-ON Performing Organization Address City/State/ZIP Code Phon e Number [facility] LABORATORIES - [address] [place], [place] [address] [facility] (ABNORMAL) CBC without Differential (07/03/2018 5:30 AM CDT) [facility] Method Time Signature Hemoglobin 13.6 11.6 - 07/03/2018 [facility] 15.0 g/dL 6:16 AM CDT LABORATORIES [facility] Hematocrit 43.6 35.5 - 07/03/2018 [facility] 44.9 % 6:16 AM CDT [employer] [facility] Erythrocytes 4.90 3.92 - 07/03/2018 [facility] 5.13 6:16 AM CDT LABORATORIES - x10(12)/L [facility] MCV 89.0 78.2 - 07/03/2018 [facility] 97.9 fL 6:16 AM CDT [employer] [facility] RBC Distrib 14.2 12.2 - 07/03/2018 [facility] Width 16.1 % 6:16 AM CDT LABORATORIES [facility] Platelet Count 531 (H) 157 - 371 07/03/2018 [facility] x10(9)/L 6:16 AM CDT LABORATORIES [facility] Leukocytes 8.7 3.4 - 9.6 07/03/2018 [facility] x10(9)/L 6:16 AM CDT LABORATORIES [facility] Specimen Anatomical Collection Method Collection Time Receive d Time (Source) Location / / Volume Laterality Blood (Blood, 07/03/2018 5:30 AM 07/04/19 19 6:07 Venous) CDT AM CDT Oralia Ricks APRN C.NEdilmaPEdilma LAB BLOOD ADD-ON Performing Organization Address City/State/ZIP Code Phon e Number [facility] LABORATORIES - [address] [place], [place] [address] [facility] Basic Metabolic Panel (07/03/2018 5:30 AM CDT) Analysis Performed At Patho logist Time Signature Potassium, S 4.8 3.6 - 5.2 07/03/2018 [facility] mmol/L 6:41 AM CDT LABORATORIES - [facility] Sodium, S 138 135 - 145 07/03/2018 [facility] mmol/L 6:41 AM CDT LABORATORIES - [facility] Chloride, S 100 98 - 107 07/03/2018 [facility] mmol/L 6:41 AM CDT LABORATORIES - [facility] Bicarbonate, S 26 22 - 29 07/03/2018 [facility] mmol/L 6:41 AM CDT LABORATORIES [facility] Anion Gap 12 7 - 15 07/03/2018 [facility] 6:41 AM CDT LABORATORIES [facility] BUN (Blood Urea 16 6 - 21 07/03/2018 [facility] Nitrogen), S mg/dL 6:41 AM CDT LABORATORIES [facility] Creatinine 0.94 0.59 - 07/03/2018 [facility] 1.04 mg/dL 6:41 AM CDT LABORATORIES [facility] eGFR-Non 66 >=60 07/03/2018 [facility] Black/ mL/min/BSA 6:41 AM CDT LABORATORIES [facility] Comment: ----ADDITIONAL INFORMATION---- Estimated GFR calculated using the 2009 CKD_EPI creatinine equation. eGFR-Black/ 76 >=60 mL/min/BSA 07/03/2018 6:41 [facility] [place] CDT LABORATORIES [facility] Comment: ----ADDITIONAL INFORMATION---- Estimated GFR calculated using the 2009 CKD_EPI creatinine equation. Calcium, Total, S 9.2 8.8 - 10.2 mg/dL 07/03/2018 6:41 AM [facility] CDT LABORATORIES [facility] Glucose, S 116 70 - 140 mg/dL 07/03/2018 6:41 AM [facility] CDT LABORATORIES - [place] [place] S Specimen Anatomical Collection Method Collection Time Receive d Time (Source) Location / / Volume Laterality Blood (Blood, 07/03/2018 5:30 AM 07/04/19 19 6:07 Venous) CDT AM CDT Oralia Ricks APRN, C.N.P. LAB BLOOD ADD-ON Performing Organization Address City/[facility]/ZIP Code Phon e Number [facility] LABORATORIES - [address] [place], [place] [address] [facility] Glucose, POCT (07/03/2018 5:29 AM CDT) Analysis Performed At Path logist Time Signature Glucose, POCT, 119 70 - 140 07/03/2018 [facility] B mg/dL 5:32 AM CDT SERVICES Last Intake 3-4 hours 07/03/2018 [facility] 5:32 AM CDT SERVICES Specimen Anatomical Collection Method Collection Time Receive d Time (Source) Location / / Volume Laterality Blood 07/03/2018 5:29 AM 9 5:32 CDT AM CDT Unknown Provider LAB POCT ORDERABLES-MANUAL Performing Organization Address City/[facility] Code Phon e Number [facility] LAB SERVICES [address] [place] [address] Glucose, POCT (07/03/2018 2:13 AM CDT) Analysis Performed At [facility] logist Time Signature Glucose, POCT, 114 70 - 140 07/03/2018 [facility] B mg/dL 2:15 AM CDT SERVICES Site Capillary 07/03/2018 [facility] 2:15 AM CDT SERVICES Specimen Anatomical Collection Method Collection Time Receive d Time (Source) Location / / Volume Laterality Blood 07/03/2018 2:13 AM 9 2:15 CDT AM CDT Unknown Provider LAB POCT ORDERABLES-MANUAL Performing Organization Address City/[facility] Phon e Number [facility] LAB SERVICES [address] [place] [address] (ABNORMAL) APTT (Activated Partial Thromboplastin Time) (07/02/2018 9:01 PM CDT) Analysis Performed At Path logis Time Signature Activated 88 (H) 25 - 37 07/02/2018 [facility] Partial sec 10:04 PM CDT LABORATORIES - Thrombopl [place] [facility] Time, P CAMPUS Specimen Anatomical Collection Method Collection Time Receive d Time (Source) Location / / Volume Laterality Blood (Blood, 07/02/2018 9:01 PM 07/03/19 19 9:31 Venous) CDT PM CDT Douglas RendonSEdilma LAB BLOOD ADD-ON Performing Organization Address City/[facility]/ZIP Code Phon e Number [facility] LABORATORIES - [address] [place], [place] [address] [facility] Glucose, POCT (07/02/2018 5:34 PM CDT) Analysis Performed At Patho logist Time Signature Glucose, POCT, 136 70 - 140 07/02/2018 [facility] B mg/dL 5:39 PM CDT SERVICES Site Capillary 07/02/2018 [facility] 5:39 PM CDT SERVICES Last Intake 3-4 hours 07/02/2018 [facility] 5:39 PM CDT SERVICES Specimen Anatomical Collection Method Collection Time Receive d Time (Source) Location / / Volume Laterality Blood 07/02/2018 5:34 PM 9 5:39 CDT PM CDT Unknown Provider LAB POCT ORDERABLES-MANUAL Performing Organization Address [facility] Phon e Number [facility] LAB SERVICES [address] [place] [address] (ABNORMAL) APTT (Activated Partial Thromboplastin Time) (07/02/2018 1:27 PM CDT) Analysis Performed At Patho logist Time Signature Activated 42 (H) 25 - 37 07/02/2018 [facility] Partial sec 2:25 PM CDT LABORATORIES - Thrombopl [facility] Specimen Anatomical Collection Method Collection Time Receive d Time (Source) Location / / Volume Laterality Blood (Blood, 07/02/2018 1:27 PM 07/03/19 19 1:59 Venous) CDT PM CDT Douglas RendonS. LAB BLOOD ADD-ON Performing Organization Address City/[facility]/ZIP Code Phon e Number [facility] LABORATORIES - [address] [place], [place] [address] [facility] Glucose, POCT (07/02/2018 1:16 PM CDT) Analysis Performed At Patho logist Time Signature Glucose, POCT, 128 70 - 140 07/02/2018 [facility] B mg/dL 1:19 PM CDT SERVICES Site Capillary 07/02/2018 [facility] 1:19 PM CDT SERVICES Last Intake 3-4 hours 07/02/2018 [facility] 1:19 PM CDT SERVICES Specimen Anatomical Collection Method Collection Time Receive d Time (Source) Location / / Volume Laterality Blood 07/02/2018 1:16 PM 9 1:20 CDT PM CDT Unknown Provider LAB POCT ORDERABLES-MANUAL Performing Organization Address City/[facility]/ZIP Code Phon e Number [facility] LAB SERVICES [address] [place] [address] Glucose, POCT (07/02/2018 6:41 AM CDT) Analysis Performed At Patho logist Time Signature Glucose, POCT, 120 70 - 140 07/02/2018 [facility] B mg/dL 6:43 AM CDT SERVICES Site Capillary 07/02/2018 [facility] 6:43 AM CDT SERVICES Specimen Anatomical Collection Method Collection Time Receive d Time (Source) Location / / Volume Laterality Blood 07/02/2018 6:41 AM 9 6:44 CDT AM CDT Unknown Provider LAB POCT ORDERABLES-MANUAL Performing Organization Address City/[facility]/ZIP Code Phon e Number [facility] LAB SERVICES [address] [place] [address] Thyroid Function [place] (07/02/2018 5:23 AM CDT) P athologist Signature TSH, Sensitive 3.3 0.3 - 4.2 07/02/2018 [facility] mIU/L 9:20 AM CDT LABORATORIES - [facility] Specimen Anatomical Collection Method Collection Time Receive d Time (Source) Location / / Volume Laterality Blood (Blood, 07/02/2018 5:23 AM 07/03/19 19 8:30 Venous) CDT AM CDT Oralia Ricks APRN, C.N.P. LAB BLOOD ADD-ON Performing Organization Address City/[facility]/ZIP Code Phon e Number [facility] LABORATORIES - [address] [place], [place] [address] [facility] (ABNORMAL) APTT (Activated Partial Thromboplastin Time) (07/02/2018 5:23 AM CDT) Patholo gist Method Time Signature Activated 115 (H) 25 - 37 07/02/2018 [facility] Partial sec 6:04 AM CDT LABORATORIES - Thrombopl [facility] Time, CAMPUS Specimen Anatomical Collection Method Collection Time Receive d Time (Source) Location / / Volume Laterality Blood (Blood, 07/02/2018 5:23 AM 07/03/19 19 5:34 Venous) CDT AM CDT Douglas Pham LAB BLOOD ADD-ON Performing Organization Address City/[facility] Phon e Number [facility] LABORATORIES - [address] [place], [place] [address] [facility] (ABNORMAL) Prothrombin Time (PT/INR) (07/02/2018 5:23 AM CDT) [facility] Method Time Signature Prothrombin 14.2 (H) 9.4 - 07/02/2018 [facility] Time, P 12.5 sec 5:51 AM CDT LABORATORIES - [facility] INR 1.3 0.9 - 1.1 07/02/2018 [facility] 5:51 AM CDT LABORATORIES - [facility] Comment: ----ADDITIONAL INFORMATION---- Standard intensity warfarin therapeutic range: 2.0 to 3.0 ?? High intensity warfarin therapeutic rang e: 2.5 to 3.5 Specimen Anatomical Collection Method Collection Time Receive d Time (Source) Location / / Volume Laterality Blood (Blood, 07/02/2018 5:23 AM 07/03/19 19 5:34 Venous) CDT AM CDT Oralia Ricks APRN, C.N.P. LAB BLOOD ADD-ON Performing Organization Address City/[facility] Phon e Number [facility] LABORATORIES - [address] [place], [place] [address] [facility] (ABNORMAL) CBC without Differential (07/02/2018 5:23 AM CDT) [facility] Method Time Signature Hemoglobin 13.6 11.6 - 07/02/2018 [facility] 15.0 g/dL 5:43 AM CDT LABORATORIES - [facility] Hematocrit 42.7 35.5 - 07/02/2018 [facility] 44.9 % 5:43 AM CDT LABORATORIES - [facility] Erythrocytes 4.87 3.92 - 07/02/2018 [facility] 5.13 5:43 AM CDT LABORATORIES - x10(12)/L [facility] MCV 87.7 78.2 - 07/02/2018 [facility] 97.9 fL 5:43 AM CDT LABORATORIES - [facility] RBC Distrib 14.1 12.2 - 07/02/2018 [facility] Width 16.1 % 5:43 AM CDT LABORATORIES - [facility] Platelet Count 511 (H) 157 - 371 07/02/2018 [facility] x10(9)/L 5:43 AM CDT LABORATORIES - [facility] Leukocytes 9.2 3.4 - 9.6 07/02/2018 [facility] x10(9)/L 5:43 AM CDT LABORATORIES - [facility] Specimen Anatomical Collection Method Collection Time Receive d Time (Source) Location / / Volume Laterality Blood (Blood, 07/02/2018 5:23 AM 07/03/19 19 5:34 Venous) CDT AM CDT Oralia Ricks APRN, C.N.P. LAB BLOOD ADD-ON Performing Organization Address City/State/ZIP Code Phon e Number [facility] LABORATORIES - [address] [place], [place] [address] [facility] (ABNORMAL) Basic Metabolic Panel (07/02/2018 5:23 AM CDT) [facility] gist Method Time Signature Potassium, S 3.6 3.6 - 5.2 07/02/2018 [facility] mmol/L 6:59 AM CDT LABORATORIES - [facility] Sodium, S 135 135 - 145 07/02/2018 [facility] mmol/L 6:59 AM CDT LABORATORIES - [facility] Chloride, S 97 (L) 98 - 107 07/02/2018 [facility] mmol/L 6:59 AM CDT LABORATORIES - [facility] Bicarbonate, S 23 22 - 29 07/02/2018 [facility] mmol/L 6:59 AM CDT LABORATORIES - [facility] Anion Gap 15 7 - 15 07/02/2018 [facility] 6:59 AM CDT LABORATORIES - [facility] BUN (Blood Urea 17 6 - 21 07/02/2018 [facility] Nitrogen), S mg/dL 6:59 AM CDT LABORATORIES - [facility] Creatinine 0.96 0.59 - 07/02/2018 [facility] 1.04 mg/dL 6:59 AM CDT LABORATORIES - [facility] eGFR-Non 64 >=60 07/02/2018 [facility] Black/ mL/min/BSA 6:59 AM CDT LABORATORIES - [facility] Comment: ----ADDITIONAL INFORMATION---- Estimated GFR calculated using the 2009 CKD_EPI creatinine equation. eGFR-Black/ 74 >=60 mL/min/BSA 07/02/2018 6:59 [facility] AM CDT LABORATORIES - [facility] Comment: ----ADDITIONAL INFORMATION---- Estimated GFR calculated using the 2009 CKD_EPI creatinine equation. Calcium, Total, S 9.0 8.8 - 10.2 07/02/2018 6:59 AM [facility] mg/dL CDT LABORATORIES - [facility] S Glucose, S 163 (H) 70 - 140 mg/dL 07/02/2018 6:59 AM [facility] CDT LABORATORIES - [facility] Specimen Anatomical Collection Method Collection Time Receive d Time (Source) Location / / Volume Laterality Blood (Blood, 07/02/2018 5:23 AM 07/03/19 19 5:34 Venous) CDT AM CDT Amrita Carr APRNP. LAB BLOOD ADD-ON Performing Organization Address City/[facility] Code Phon e Number [facility] LABORATORIES - [address] (ABNORMAL) APTT (Activated Partial Thromboplastin Time) (07/01/2018 10:04 PM CDT) Analysis Performed At Patho logist Time Signature Activated 39 (H) 25 - 37 07/01/2018 [facility] Partial sec 10:35 PM CDT LAB[facility]ATORIES - [facility] Specimen Anatomical Collection Method Collection Time Receive d Time (Source) Location / / Volume Laterality Blood (Blood, 07/01/2018 10:04 07/01/2018 Venous) PM CDT 10:21 PM CDT Douglas Pham LAB BLOOD ADD-ON Performing Organization Address City/[facility] Code Phon e Number [facility] LABORATORIES - [address] [place] [address] [facility] Glucose, POCT (07/01/2018 9:49 PM CDT) P athologist Signature Glucose, POCT, 118 70 - 140 07/01/2018 [facility] B mg/dL 9:52 PM CDT SERVICES Specimen Anatomical Collection Method Collection Time Receive d Time (Source) Location / / Volume Laterality Blood 07/01/2018 9:49 PM 9 9:52 CDT PM CDT Unknown Provider LAB POCT ORDERABLES-MANUAL Performing Organization Address City/[facility]/ZIP Code Phon e Number [facility] LAB SERVICES [address] [place] [address] (ABNORMAL) APTT (Activated Partial Thromboplastin Time) (07/01/2018 9:12 PM CDT) Analysis Performed At [facility] logist Time [facility] Activated 20 (L) 25 - 37 07/01/2018 [facility] Partial sec 10:53 PM CDT LABORATORIES - Thrombopl [facility] Specimen Anatomical Collection Method Collection Time Receive d Time (Source) Location / / Volume Laterality Blood (Blood, 07/01/2018 9:12 PM 07/02/19 19 Venous) CDT 10:10 PM CDT Douglas Pham LAB BLOOD ADD-ON Performing Organization Address City/[facility]/ZIP Code Phon e Number [facility] LABORATORIES - [address] [place], [place] [address] [facility] Glucose, POCT (07/01/2018 5:34 PM CDT) Analysis Performed At [facility] logist Time Signature Glucose, POCT, 112 70 - 140 07/01/2018 [facility] B mg/dL 5:58 PM CDT SERVICES Site Capillary 07/01/2018 [facility] 5:58 PM CDT SERVICES Last Intake NPO 07/01/2018 [facility] 5:58 PM CDT SERVICES Specimen Anatomical Collection Method Collection Time Receive d Time (Source) Location / / Volume Laterality Blood 07/01/2018 5:34 PM 9 5:58 CDT PM CDT Unknown Provider LAB POCT ORDERABLES-MANUAL Performing Organization Address City/[facility]/ZIP Code Phon e Number [facility] LAB SERVICES [address] [place] [address] (ABNORMAL) Prothrombin Time (PT/INR) (07/01/2018 1:55 PM CDT) Patholo gist Method Time Signature Prothrombin 17.6 (H) 9.4 - 07/01/2018 [facility] Time, P 12.5 sec 2:21 PM CDT LABORATORIES - [facility] INR 1.6 0.9 - 1.1 07/01/2018 [facility] 2:21 PM CDT LABORATORIES - [facility] Comment: ----ADDITIONAL INFORMATION---- Standard intensity warfarin therapeutic range: 2.0 to 3.0 ?? High intensity warfarin therapeutic rang e: 2.5 to 3.5 Specimen Anatomical Collection Method Collection Time Receive d Time (Source) Location / / Volume Laterality Blood (Blood, 07/01/2018 1:55 PM 07/02/19 19 2:02 Venous) CDT PM CDT Oarlia Ricks APRN C.N.P. LAB BLOOD ADD-ON Performing Organization Address City/State/ZIP Code Phon e Number [facility] LABORATORIES - [address] [place], [place] [address] [facility] Glucose, POCT (07/01/2018 1:11 PM CDT) Analysis Performed At Patho logist Time Signature Glucose, POCT, 127 70 - 140 07/01/2018 [facility] B mg/dL 1:18 PM CDT SERVICES Site Capillary 07/01/2018 [facility] 1:18 PM CDT SERVICES Last Intake NPO 07/01/2018 [facility] 1:18 PM CDT SERVICES Specimen Anatomical Collection Method Collection Time Receive d Time (Source) Location / / Volume Laterality Blood 07/01/2018 1:11 PM 9 1:18 CDT PM CDT Unknown Provider LAB POCT ORDERABLES-MANUAL Performing Organization Address City/[facility] Code Phon e Number [facility] LAB SERVICES [address] [place] [address] (MICHAEL) 2D WITH COLOR, LIMITED DOPPLER AND CONTRAST (07/01/2018 12:17 PM CDT) P athologist Signature Ejection 45 MC CV EIMS Fraction Mid-Ascending 28 MC CV EIMS Aorta Anatomical Region Laterality Modality Echocardiography Specimen (Source) Anatomical Collection Method Collection Time Re ceived Time Location / / Volume Laterality 07/01/2018 10:58 AM CDT Narrative 07/01/2018 2:02 PM CDT For the complete report, see the Order-L evel Documents below. Final Impressions 1. Left atrial appendage thrombus. ??Mul tilobulated mass with mobile components (clips 45-49). Spotaneous echo contrast. 2. Moderate left ventricular enlargement . ??Estimated ejection fraction 45%. 3. Mild-moderate mitral valve regurgitat ion. 4. Moderate tricuspid valve regurgitatio n. 5. Severe bi-atrial enlargement. Findings PRE-SEDATION ASSESSMENT & CONSENT ??The goals, [...] derate sedation. ??ASA physical status score: Class II. The patient's identity and all needed eq uipment were confirmed and a final confirmatory pause was performed by the team immediately pr ior to start. ??LEFT VENTRICLE: ??Moderate left ventricular enlargement. ??Estimated lef t ventricular ejection fraction 45 %. ??RIGHT VENTRICLE: Mild right ventricular enlargement. ??Mi ld decrease in right ventricular systolic function. ATRIA: ??Severe left atrial enlargement. ??Left atrial appendage thrombus. ??Severe right atrial enlargement. ??Normal right atrial appen dage. ??CARDIAC VALVES: ??Trileaflet aortic valve. ??Mildly thickened aortic valve. ??Mild aortic va lve regurgitation. ??Thickened mitral valve. ??Mitral annulus dilatation. ??Mild-moderate mitr al valve regurgitation. ??Normal pulmonary valve. Trivial pulmonary valve regurgitation. ? ?Thickened tricuspid valve. ??Moderate tricuspid valve regurgitation. ??OTHER ECHO FINDINGS: ?? Normal ascending aorta dimension. ??Mild immobile atherosclerosis of the descending thorac ic aorta. ??Normally connected pulmonary veins. ??No pqke-im-narkr shunt at atrial level. ??A gitated saline injection(s) performed during sedation. No nvjcn-ob-nbwt shunt at atrial level. ??Pericardial effusion. ??PROCEDURE ??Transesophageal echocardiogram performed at the request of the primary director of outpatient services. ??Adult probe inserted without difficulty. ??Procedure performed with appropriate level of sedation. ??A trained independent observer assisted wi monitoring the patient's level of consciousness and physiologic status throughout the proced ure, see nursing documentation. ??Physician signature for procedural medications and patient d ischarge when DC criteria met. ??The patient tolerated the sedation and procedure well and was released awake, alert, and in good condition. ??See Sedation Narrator or other pertinent rec ord in [facility] for additional procedure and sedation information. ??Transesophageal echocardi ogram completed without complications. For the complete report, see the Order-L evel Documents below. See PDF For Result Procedure Note Nicole Myers M.D. - 07/01/2018 For the complete report, see the Order-L evel Documents below. Final Impressions 1. Left atrial appendage thrombus. Multi lobulated mass with mobile components (clips 45-49). Spotaneous echo contrast. 2. Moderate left ventricular enlargement . Estimated ejection fraction 45%. 3. Mild-moderate mitral valve regurgitat ion. 4. Moderate tricuspid valve regurgitatio n. 5. Severe bi-atrial enlargement. Findings PRE-SEDATION ASSESSMENT & CONSENT The go [...] derate sedation. ASA physical status score: Class II. The patient's identity and all needed eq uipment were confirmed and a final confirmatory pause was performed by the team immediately pr ior to start. LEFT VENTRICLE: Moderate left ventricular enlargement. Estimated left ventricular ejection fraction 45 %. RIGHT VENTRICLE: Mild right ventricular enlargement. Mild decrease in right ventricular systolic function. ATRIA: Severe left atrial enlargement. L eft atrial appendage thrombus. Severe right atrial enlargement. Normal right atrial appenda ge. CARDIAC VALVES: Trileaflet aortic valve. Mildly thickened aortic valve. Mild aortic valv e regurgitation. Thickened mitral valve. Mitral annulus dilatation. Mild-moderate mitral valve regurgitation. Normal pulmonary valve. Trivial pulmonary valve regurgitation. T hickened tricuspid valve. Moderate tricuspid valve regurgitation. OTHER ECHO FINDINGS: Norm al ascending aorta dimension. Mild immobile atherosclerosis of the descending thorac ic aorta. Normally connected pulmonary veins. No cfuv-te-jnsyr shunt at atrial level. Michelle tated saline injection(s) performed during sedation. No dbadh-ss-tiib shunt at atrial level. Pericardial effusion. PROCEDURE Transesophageal echocardiogram performed at the request of the primary director of outpatient services. Adult probe inserted without difficulty. Procedure p erformed with appropriate level of sedation. A trained independent observer assisted wi th monitoring the patient's level of consciousness and physiologic status throughout the proced ure, see nursing documentation. Physician signature for procedural medications and patient d ischarge when DC criteria met. The patient tolerated the sedation and procedure well and was released awake, alert, and in good condition. See Sedation Narrator or other pertinent rec ord in Epic for additional procedure and sedation information. Transesophageal echocardiog perry completed without complications. For the complete report, see the Order-L evel Documents below. See PDF For Result Douglas Pham CV ECHO PROCEDURES ECG 12 Lead STAT PRN (07/01/2018 9:44 AM CDT) [facility] Method Time Signature Ventricular 137 BPM MUSE Rate ECG/Min GA Interval 244 ms MUSE QRSD Interval 64 ms MUSE QT Interval 364 ms MUSE QTC Interval 549 ms MUSE P [place] 17 degrees MUSE R [place] 102 degrees MUSE T Wave [place] -143 degrees MUSE CODED DIAGNOSIS Atrial MUSE flutter Specimen Anatomical Collection Method Collection Time Receive d Time (Source) Location / / Volume Laterality 07/01/2018 9:44 AM 9 9:54 CDT AM CDT Impressions MUSE - 07/01/2018 9:54 AM CDT Atrial flutter with 2:1 A-V conduction Rightward axis Nonspecific ST and T wave abnormality When compared with ECG of 30-JUN-2018 20 :54, Significant changes have occurred Narrative This result has an attachment that is no t available. Procedure Note Peyman Cole M.D. - 07/01/2018Formatt ing of this note might be different from the original. IMPRESSION: Atrial flutter with 2:1 A-V conduction Rightward axis Nonspecific ST and T wave abnormality When compared with ECG of 30-JUN-2018 20 :54, Significant changes have occurred Alysha Charles P.A.-C. ECG ORDERABLES Performing Organization Address City[place] [facility] [place] MUSE MUSE NA (ABNORMAL) Microscopic Manual (07/01/2018 9:28 AM CDT) P athologist Signature Microscopy Abnormal 07/01/2018 [facility] 1:34 PM CDT LABORATORIES - [facility] RBC <3 <3 /hpf 07/01/2018 [facility] 1:34 PM CDT LABORATORIES - [facility] WBC 1-3 /hpf 07/01/2018 [facility] 1:34 PM CDT LABORATORIES - [facility] Comment: ----REFERENCE VALUE---- 1-3 ??(Males) 1-10 (Females) Casts, Hyaline 4-10 /lpf 07/01/2018 1:34 PM [facility] LINIC CDT LABORATORIES - [facility] Casts, Granular Occas (A) /lpf 07/01/2018 1:34 PM [facility] CDT LABORATORIES [facility] S Fat, Free Occas (A) /hpf 07/01/2018 1:34 PM [facility] CDT LABORATORIES [facility] Squamous Epithelial 4-10 /hpf 07/01/2018 1:34 PM [facility] Cells, U CDT LABORATORIES [facility] Bacteria Present (A) 07/01/2018 1:34 PM [facility] IC CDT LABORATORIES - [facility] Specimen Anatomical Collection Method Collection Time Receive d Time (Source) Location / / Volume Laterality Urine 07/01/2018 9:28 AM 9 CDT 12:00 PM CDT Antelmo Richey P.A.-C. LAB URINE ORDERABLES Performing Organization Address City/[facility]/ZIP Code Phon e Number [facility] LABORATORIES - [address] [place], [place] [address] [facility] (ABNORMAL) Urinalysis with Microscopic (07/01/2018 9:28 AM CDT) Patholo gist Method Time Signature Source Midstream 07/01/2018 [facility] 12:00 PM CDT LABORATORIES [facility] Appearance Normal Normal 07/01/2018 [facility] 12:25 PM CDT [facility] [facility] Osmolality, U 652 150 - 1150 07/01/2018 [facility] mOsm/kg 1:10 PM CDT LABORATORIES [facility] pH, U 5.7 4.5 - 8.0 07/01/2018 [facility] 1:10 PM CDT [facility] Comment: ----ADDITIONAL INFORMATION---- This test was developed and its performa nce characteristics determined by [facility] in a manner co nsistent with CLIA requirements. This test has not bee n cleared or approved by the U.S. Food and Drug Admin istration. Glucose 8 0 - 15 mg/dL 07/01/2018 12:25 PM CDT [facility] Protein, U 40 (H) <26 mg/dL 07/01/2018 12:25 PM CDT [facility] Comment: ----ADDITIONAL INFORMATION---- On 09/17/2016 the total protein assay me thod changed resulting in approximately a 15% increase in prote in values. Protein/Osmolality 0.61 (H) <0.42 Ratio 07/01/2018 1:10 PM [facility] CDT [facility] Comment: ----ADDITIONAL INFORMATION---- On 09/17/2016 the total protein assay me thod changed resulting in approximately a 15% increase in prote in values. Predicted 24 Hr 429 mg/24 h 07/01/2018 1:10 PM [facility] Protein T [facility] Predicted Range 106-1738 mg/24 h 07/01/2018 1:[facility] Hemoglobin, QL Negative Negative 07/01/2018 12:54 PM [facility] CDT [facility] Specimen Anatomical Collection Method Collection Time Receive d Time (Source) Location / / Volume Laterality Urine (Urine, 07/01/2018 9:28 AM 07/02/19 19 Clean Catch) CDT 12:00 PM CDT Antelmo Richey P.A.-C. LAB URINE ORDERABLES Performing Organization Address City/State/ZIP Code Phon e Number [facility] - [address] [place], [place] [address] [facility] Glucose, POCT (07/01/2018 5:51 AM CDT) Analysis Performed At Patho logist Time Signature Glucose, POCT, 115 70 - 140 07/01/2018 [facility] B mg/dL 5:52 AM CDT SERVICES Site Capillary 07/01/2018 [facility] 5:52 AM CDT SERVICES Last Intake 3-4 hours 07/01/2018 [facility] 5:52 AM CDT SERVICES Specimen Anatomical Collection Method Collection Time Receive d Time (Source) Location / / Volume Laterality Blood 07/01/2018 5:51 AM 9 5:53 CDT AM CDT Unknown Provider LAB POCT ORDERABLES-MANUAL Performing Organization Address City/State/ZIP Code Phon e Number [facility] LAB SERVICES [address] [place] [address] (ABNORMAL) Basic Metabolic Panel (07/01/2018 5:50 AM CDT) [facility] gist Method Time Signature Potassium, S 5.1 3.6 - 5.2 07/01/2018 [facility] mmol/L 6:49 AM CDT LABORATORIES - [facility] Sodium, S 138 135 - 145 07/01/2018 [facility] mmol/L 6:49 AM CDT LABORATORIES - [facility] Chloride, S 99 98 - 107 07/01/2018 [facility] mmol/L 6:49 AM CDT LABORATORIES - [facility] Bicarbonate, S 26 22 - 29 07/01/2018 [facility] mmol/L 6:49 AM CDT LABORATORIES - [facility] Anion Gap 13 7 - 15 07/01/2018 [facility] 6:49 AM CDT LABORATORIES - [facility] BUN (Blood 21 6 - 21 07/01/2018 [facility] Urea mg/dL 6:49 AM CDT LABORATORIES - Nitrogen), S [facility] Creatinine 1.14 (H) 0.59 - 07/01/2018 [facility] 1.04 6:49 AM CDT LABORATORIES - mg/dL [facility] eGFR-Non 52 (L) >=60 07/01/2018 [facility] Black/ mL/min/BS 6:49 AM CDT LABORATORIES - [place] [facility] Comment: ----ADDITIONAL INFORMATION---- Estimated GFR calculated using the 2009 CKD_EPI creatinine equation. eGFR-Black/ 60 >=60 mL/min/BSA 07/01/2018 6:49 [facility] [place] AM CDT LABORATORIES - [facility] Comment: ----ADDITIONAL INFORMATION---- Estimated GFR calculated using the 2009 CKD_EPI creatinine equation. Calcium, Total, S 9.4 8.8 - 10.2 mg/dL 07/01/2018 6:49 AM [facility] CDT LABORATORIES - [facility] S Glucose, S 121 70 - 140 mg/dL 07/01/2018 6:49 AM [facility] CDT LABORATORIES - [facility] S Specimen Anatomical Collection Method Collection Time Receive d Time (Source) Location / / Volume Laterality Blood (Blood, 07/01/2018 5:50 AM 07/02/19 19 6:13 Venous) CDT AM CDT Antelmo Richey P.A.-C. LAB BLOOD ADD-ON Performing Organization Address City/State/ZIP Code Phon e Number [facility] LABORATORIES - [address] [place], [place] [address] [facility] Glucose, POCT (06/30/2018 9:38 PM CDT) Analysis Performed At Path logist Time Signature Glucose, POCT, 129 70 - 140 06/30/2018 [facility] B mg/dL 10:01 PM CDT SERVICES Site Capillary 06/30/2018 [facility] 10:01 PM CDT SERVICES Last Intake 3-4 hours 06/30/2018 [facility] 10:01 PM CDT SERVICES Specimen Anatomical Collection Method Collection Time Receive d Time (Source) Location / / Volume Laterality Blood 06/30/2018 9:38 PM 9 CDT 10:02 PM CDT Unknown Provider LAB POCT ORDERABLES-MANUAL Performing Organization Address City/State/ZIP Code Phon e Number [facility] LAB SERVICES [address] [place] [address] ECG 12 Lead (06/30/2018 8:54 PM CDT) [facility] gist Method Time Signature Ventricular 64 BPM MUSE Rate ECG/Min GA Interval 156 ms MUSE QRSD Interval 86 ms MUSE QT Interval 456 ms MUSE QTC Interval 470 ms MUSE P [place] 56 degrees MUSE R [place] 109 degrees MUSE T Wave [place] 68 degrees MUSE CODED DIAGNOSIS Atrial MUSE flutter Specimen Anatomical Collection Method Collection Time Receive d Time (Source) Location / / Volume Laterality 06/30/2018 8:54 PM 9 8:56 CDT PM CDT Impressions MUSE - 06/30/2018 8:56 PM CDT Normal sinus rhythm Rightward axis Low anterior forces Nonspecific ST abnormality When compared with ECG of 29-JUN-2018 18 :26, Sinus rhythm has replaced Atrial flutter Vent. rate has decreased BY ??84 BPM Narrative This result has an attachment that is no t available. Procedure Note Na Flor M.D. - 06/30/2018 IMPRESSION: Normal sinus rhythm Rightward axis Low anterior forces Nonspecific ST abnormality When compared with ECG of 29-JUN-2018 18 :26, Sinus rhythm has replaced Atrial flutter Vent. rate has decreased BY 84 BPM Antelmo Richey P.A.-C. ECG ORDERABLES Performing Organization Address City/State/ZIP Code Phon e Number MUSE MUSE NA (ABNORMAL) Glucose, POCT (06/30/2018 4:28 PM CDT) Analysis Performed At Patho logist Time Signature Glucose, POCT, 142 (H) 70 - 140 06/30/2018 [facility] B mg/dL 4:31 PM CDT SERVICES Site Capillary 06/30/2018 [facility] 4:31 PM CDT SERVICES Last Intake 2-3 hours 06/30/2018 [facility] 4:31 PM CDT SERVICES Specimen Anatomical Collection Method Collection Time Receive d Time (Source) Location / / Volume Laterality Blood 06/30/2018 4:28 PM 9 4:31 CDT PM CDT Unknown Provider LAB POCT ORDERABLES-MANUAL Performing Organization Address [facility] Phon e Number [facility] SERVICES [address] [place] [address] Glucose, POCT (06/30/2018 11:18 AM CDT) Analysis Performed At Patho logist Time Signature Glucose, POCT, 135 70 - 140 06/30/2018 [facility] B mg/dL 11:26 AM CDT SERVICES Site Capillary 06/30/2018 [facility] 11:26 AM CDT SERVICES Last Intake > 4 hours 06/30/2018 [facility] 11:26 AM CDT SERVICES Specimen Anatomical Collection Method Collection Time Receive d Time (Source) Location / / Volume Laterality Blood 06/30/2018 11:18 06/30/2018 AM CDT 11:26 AM CDT Unknown Provider LAB POCT ORDERABLES-MANUAL Performing Organization Address City/[facility]/ZIP [facility] Phon e Number [facility] SERVICES [address] [place] [address] Basic Metabolic Panel (06/30/2018 6:01 AM CDT) Analysis Performed At Patho logist Time Signature Potassium, S 4.4 3.6 - 5.2 06/30/2018 [facility] mmol/L 6:50 AM CDT [facility] Sodium, S 138 135 - 145 06/30/2018 [facility] mmol/L 6:50 AM CDT LABORATORIES [facility] Chloride, S 100 98 - 107 06/30/2018 [facility] mmol/L 6:50 AM CDT LABORATORIES [facility] Bicarbonate, S 24 22 - 29 06/30/2018 [facility] mmol/L 6:50 AM CDT LABORATORIES [facility] Anion Gap 14 7 - 15 06/30/2018 [facility] 6:50 AM CDT [facility] BUN (Blood Urea 12 6 - 21 06/30/2018 [facility] Nitrogen), S mg/dL 6:50 AM T [facility] Creatinine 0.82 0.59 - 06/30/2018 [facility] 1.04 mg/dL 6:50 AM T [facility] eGFR-Non 77 >=60 06/30/2018 [facility] Black/ mL/min/BSA 6:50 AM CDT LABORATORIES [facility] Comment: ----ADDITIONAL INFORMATION---- Estimated GFR calculated using the 2009 CKD_EPI creatinine equation. eGFR-Black/ 89 >=60 mL/min/BSA 06/30/2018 [facility] Comment: ----ADDITIONAL INFORMATION---- Estimated GFR calculated using the 2009 CKD_EPI creatinine equation. Calcium, Total, S 9.1 8.8 - 10.2 mg/dL 06/30/2018 6:50 AM [facility] CDT [facility] Glucose, S 126 70 - 140 mg/dL 06/30/2018 6:50 AM [facility] Specimen Anatomical Collection Method Collection Time Receive d Time (Source) Location / / Volume Laterality Blood (Blood, 06/30/2018 6:01 AM 07/01/19 19 6:18 Venous) CDT AM CDT Antelmo Richey P.A.-C. LAB BLOOD ADD-ON Performing Organization Address City/State/ZIP Code Phon e Number [facility] - [address] [place], [place] [address] [facility] (ABNORMAL) CBC with Differential, Blood (06/30/2018 6:01 AM CDT) [facility] Method Time Signature Hemoglobin 13.0 11.6 - 06/30/2018 [facility] 15.0 g/dL 6:26 AM CDT LABORATORIES - [facility] Hematocrit 40.6 35.5 - 06/30/2018 [facility] 44.9 % 6:26 AM CDT LABORATORIES - [facility] Erythrocytes 4.60 3.92 - 06/30/2018 [facility] 5.13 6:26 AM CDT LABORATORIES - x10(12)/L [facility] MCV 88.3 78.2 - 06/30/2018 [facility] 97.9 fL 6:26 AM CDT LABORATORIES - [facility] RBC Distrib 13.8 12.2 - 06/30/2018 [facility] Width 16.1 % 6:26 AM CDT LABORATORIES - [facility] Platelet Count 451 (H) 157 - 371 06/30/2018 [facility] x10(9)/L 6:26 AM CDT LABORATORIES - [facility] Leukocytes 9.8 (H) 3.4 - 9.6 06/30/2018 [facility] x10(9)/L 6:26 AM CDT LABORATORIES - [facility] Neutrophils 5.28 1.56 - 06/30/2018 [facility] 6.45 6:26 AM CDT LABORATORIES - x10(9)/L [facility] Lymphocytes 2.89 0.95 - 06/30/2018 [facility] 3.07 6:26 AM CDT LABORATORIES - x10(9)/L [facility] Monocytes 1.29 (H) 0.26 - 06/30/2018 [facility] 0.81 6:26 AM CDT LABORATORIES - x10(9)/L [facility] Eosinophils 0.19 0.03 - 06/30/2018 [facility] 0.48 6:26 AM CDT LABORATORIES - x10(9)/L [facility] Basophils 0.10 (H) 0.01 - 06/30/2018 [facility] 0.08 6:26 AM CDT LABORATORIES - x10(9)/L [facility] Specimen Anatomical Collection Method Collection Time Receive d Time (Source) Location / / Volume Laterality Blood (Blood, 06/30/2018 6:01 AM 07/01/19 19 6:18 Venous) CDT AM CDT Antelmo Richey P.A.-C. LAB BLOOD ADD-ON Performing Organization Address City/[facility]/ZIP Code Phon e Number [facility] LABORATORIES - [address] [place], [place] [address] [facility] Glucose, POCT (06/30/2018 6:00 AM CDT) Analysis Performed At Patho logist Time Signature Glucose, POCT, 133 70 - 140 06/30/2018 [facility] B mg/dL 6:30 AM CDT SERVICES Site Capillary 06/30/2018 [facility] 6:30 AM CDT SERVICES Specimen Anatomical Collection Method Collection Time Receive d Time (Source) Location / / Volume Laterality Blood 06/30/2018 6:00 AM 9 6:31 CDT AM CDT Unknown Provider LAB POCT ORDERABLES-MANUAL Performing Organization Address City/[facility]/ZIP Code Phon e Number [facility] SERVICES [address] [place] [address] Magnesium (06/30/2018 5:57 AM CDT) P athologist Signature Magnesium, S 1.8 1.7 - 2.3 06/30/2018 [facility] mg/dL 10:59 AM CDT LABORATORIES - [facility] Specimen Anatomical Collection Method Collection Time Receive d Time (Source) Location / / Volume Laterality Blood (Blood, 06/30/2018 5:57 AM 07/01/19 19 Venous) CDT 10:36 AM CDT Antelmo Richey P.A.-C. LAB BLOOD ADD-ON Performing Organization Address City/[facility]/ZIP Code Phon e Number [facility] LABORATORIES - [address] [place], [place] [address] [facility] DX Chest AP or PA and Lateral 2 Views (06/29/2018 9:25 PM CDT) Anatomical Region Laterality Modality Chest, Thoracic RST LOS, Thoracic ARZ LOS, Thoracic N/A Digital Radiography FLA LOS Specimen (Source) Anatomical Collection Method Collection Time Re ceived Time Location / / Volume Laterality 06/29/2018 10:58 PM CDT Impressions 06/30/2018 9:22 AM CDT IMPRESSION: ??No significant change since 01/22/2012. No pneumothorax, focal consolidation, or pleural effusion. Biap ical scarring. Stable cardiac silhouette. Calcified and mildly tortuou s aorta. Thoracic curvature. Surgical clips RUQ. Chest otherwise negative. I have personally reviewed the images an d agree with this interpretation. Narrative 06/30/2018 9:22 AM CDT EXAM: ??DX CHEST AP OR PA AND LATERAL 2 VIEWS Procedure Note aJir Ramos M.D. - 06/30/2018For matting of this note might be different from the original. EXAM: DX CHEST AP OR PA AND LATERAL 2 EWS IMPRESSION: No significant change since 01/22/2012. No pneumothorax, focal consolidation, or pleural effusion. Biap ical scarring. Stable cardiac silhouette. Calcified and mildly tortuou s aorta. Thoracic curvature. Surgical clips RUQ. Chest otherwise negative. I have personally reviewed the images an d agree with this interpretation. Antelmo Richey P.A.-C. IMG DIAGNOSTIC IMAGING PROCE DURES (ABNORMAL) Iron and Total Iron-Binding Capacity (06/29/2018 7:25 PM CDT) [facility] Signature Iron 89 35 - 145 06/29/2018 [facility] mcg/dL 8:45 PM CDT [facility] Total Iron 505 (H) 250 - 400 06/29/2018 [facility] Binding mcg/dL 8:46 PM CDT LABORATORIES [facility] Percent 18 14 - 50 % 06/29/2018 [facility] Saturation 8:46 PM CDT LABORATORIES [facility] Specimen Anatomical Collection Method Collection Time Receive d Time (Source) Location / / Volume Laterality Blood (Blood, 06/29/2018 7:25 PM 06/30/19 19 7:49 Venous) CDT PM CDT Alysha Charles P.A.-C. LAB BLOOD ADD-ON Performing Organization Address City/State/ZIP Code Phon e Number [facility] LABORATORIES - [address] [place], [place] [address] [facility] Lipid Panel (06/29/2018 7:25 PM CDT) P athologist Signature Cholesterol, 156 mg/dL 06/29/2018 [facility] Total 8:45 PM CDT LABORATORIES [facility] Comment: ----REFERENCE VALUE---- Desirable: < 200 Borderline high: 200 - 239 High: > or = 240 Triglycerides 127 mg/dL 06/29/2018 8:45 PM CDT [facility] Comment: ----REFERENCE VALUE---- Normal: <150 Borderline high: 150-199 High: 200-499 Very high: > or =500 Cholesterol, HDL, S 56 >=50 mg/dL 06/29/2018 8:45 PM CDT [facility] Calculated LDL 75 mg/dL 06/29/2018 8:[address] [facility] Comment: ----REFERENCE VALUE---- Desirable: <100 Above Desirable: 100-129 Borderline high: 130-159 High: 160-189 Very high: > or =190 Cholesterol, Non-HDL, 100 mg/dL 06/29/2018 8:4 5 PM CDT [facility] Comment: ----REFERENCE VALUE---- Desirable: <130 Above Desirable: 130-159 Borderline high: 160-189 High: 190-219 Very high: > or =220 Specimen Anatomical Collection Method Collection Time Receive d Time (Source) Location / / Volume Laterality Blood (Blood, 06/29/2018 7:25 PM 06/30/19 19 7:49 Venous) CDT PM CDT Alysha Charles P.A.-C. LAB BLOOD ADD-ON Performing Organization Address City/State/ZIP Code Phon e Number [facility] - [address] [place], [place] [address] [facility] Prothrombin Time (PT/INR) (06/29/2018 7:25 PM CDT) [facility] gist Method Time Signature Prothrombin 12.2 9.4 - 12.5 06/29/2018 [facility] Time, P sec 8:08 PM CDT [facility] INR 1.1 0.9 - 1.1 06/29/2018 [facility] 8:08 PM CDT [facility] Comment: ----ADDITIONAL INFORMATION---- Standard intensity warfarin therapeutic range: 2.0 to 3.0 ?? High intensity warfarin therapeutic rang e: 2.5 to 3.5 Specimen Anatomical Collection Method Collection Time Receive d Time (Source) Location / / Volume Laterality Blood (Blood, 06/29/2018 7:25 PM 06/30/19 19 7:49 Venous) CDT PM CDT Alysha Charles P.A.-C. LAB BLOOD ADD-ON Performing Organization Address City/State/ZIP Code Phon e Number [facility] LABORATORIES - [address] [place], [place] [address] [facility] (ABNORMAL) CBC with Differential, Blood (06/29/2018 7:25 PM CDT) [facility] Method Time Signature Hemoglobin 13.6 11.6 - 06/29/2018 [facility] 15.0 g/dL 7:55 PM CDT LABORATORIES - [facility] Hematocrit 43.1 35.5 - 06/29/2018 [facility] 44.9 % 7:55 PM CDT LABORATORIES - [facility] Erythrocytes 4.92 3.92 - 06/29/2018 [facility] 5.13 7:55 PM CDT LABORATORIES - x10(12)/L [facility] MCV 87.6 78.2 - 06/29/2018 [facility] 97.9 fL 7:55 PM CDT LABORATORIES - [facility] RBC Distrib 13.9 12.2 - 06/29/2018 [facility] Width 16.1 % 7:55 PM CDT LABORATORIES - [facility] Platelet Count 524 (H) 157 - 371 06/29/2018 [facility] x10(9)/L 7:55 PM CDT LABORATORIES - [facility] Leukocytes 10.8 (H) 3.4 - 9.6 06/29/2018 [facility] x10(9)/L 7:55 PM CDT LABORATORIES - [facility] Neutrophils 7.29 (H) 1.56 - 06/29/2018 [facility] 6.45 7:55 PM CDT LABORATORIES - x10(9)/L [facility] Lymphocytes 2.21 0.95 - 06/29/2018 [facility] 3.07 7:55 PM CDT LABORATORIES - x10(9)/L [facility] Monocytes 1.12 (H) 0.26 - 06/29/2018 [facility] 0.81 7:55 PM CDT LABORATORIES - x10(9)/L [facility] Eosinophils 0.10 0.03 - 06/29/2018 [facility] 0.48 7:55 PM CDT LABORATORIES - x10(9)/L [facility] Basophils 0.10 (H) 0.01 - 06/29/2018 [facility] 0.08 7:55 PM CDT LABORATORIES - x10(9)/L [facility] Specimen Anatomical Collection Method Collection Time Receive d Time (Source) Location / / Volume Laterality Blood (Blood, 06/29/2018 7:25 PM 06/30/19 19 7:49 Venous) CDT PM CDT Aylsha Charles P.A.-C. LAB BLOOD ADD-ON Performing Organization Address City/[facility] Code Phon e Number [facility] LABORATORIES - [address] [place] [phone] [facility] (ABNORMAL) S-TSH (Thyroid-Stimulating Hormone - Sensitive) (06/29/2018 7:25 PM CDT) Patholo gist Method Time Signature TSH, Sensitive 4.8 (H) 0.3 - 4.2 06/29/2018 [facility] mIU/L 8:45 PM CDT LABORATORIES [facility] Specimen Anatomical Collection Method Collection Time Receive d Time (Source) Location / / Volume Laterality Blood (Blood, 06/29/2018 7:25 PM 06/30/19 19 7:49 Venous) CDT PM CDT Alysha Charles P.A.-C. LAB BLOOD ADD-ON Performing Organization Address City/[facility] Code Phon e Number [facility] LABORATORIES - [address] [phone] [facility] (ABNORMAL) NT-Pro B-Type Natriuretic Peptide (BNP) (06/29/2018 7:25 PM CDT) P athologist Signature NT-Pro BNP 5956 (H) <=177 06/29/2018 [facility] pg/mL 8:45 PM CDT LABORATORIES [facility] Comment: NT-proBNP values less than 300 pg/mL hav e a 99% negative predictive value for excluding acute congestive heart sean lure. A cutoff of 1200 pg/mL for patients with an eGFR<60 yields a diagno stic sensitivity and specificity of 89% and 72% for acute congestive heart f ailure. ??A diagnostic NT-proBNP cutoff of 900 pg/mL has been suggested i n adults 50-75 years of age in the absence of renal failure. Specimen Anatomical Collection Method Collection Time Receive d Time (Source) Location / / Volume Laterality Blood (Blood, 06/29/2018 7:25 PM 06/30/19 19 7:49 Venous) CDT PM CDT Alysha Charles P.A.-C. LAB BLOOD ADD-ON Performing Organization Address City/[facility] Code Phon e Number [facility] LABORATORIES - [address] [place], [place] [address] [facility] Magnesium (06/29/2018 7:25 PM CDT) P athologist Signature Magnesium, S 1.8 1.7 - 2.3 06/29/2018 [facility] mg/dL 8:45 PM CDT LABORATORIES - [facility] Specimen Anatomical Collection Method Collection Time Receive d Time (Source) Location / / Volume Laterality Blood (Blood, 06/29/2018 7:25 PM 06/30/19 19 7:49 Venous) CDT PM CDT Alysha Charles P.A.-C. LAB BLOOD ADD-ON Performing Organization Address City/[facility] Code Phon e Number [facility] LABORATORIES - [address] [phone] [facility] (ABNORMAL) Comprehensive Metabolic Panel (06/29/2018 7:25 PM CDT) Patholo gist Method Time Signature Potassium, S 4.7 3.6 - 5.2 06/29/2018 [facility] mmol/L 8:45 PM CDT LABORATORIES - [facility] Sodium, S 136 135 - 145 06/29/2018 [facility] mmol/L 8:45 PM CDT LABORATORIES - [facility] Chloride, S 100 98 - 107 06/29/2018 [facility] mmol/L 8:45 PM CDT LABORATORIES - [facility] Bicarbonate, S 18 (L) 22 - 29 06/29/2018 [facility] mmol/L 8:45 PM CDT LABORATORIES [facility] Anion Gap 18 (H) 7 - 15 06/29/2018 [facility] 8:45 PM CDT LABORATORIES [facility] BUN (Blood Urea 15 6 - 21 06/29/2018 [facility] Nitrogen), S mg/dL 8:45 PM CDT LABORATORIES [facility] Creatinine 0.81 0.59 - 06/29/2018 [facility] 1.04 mg/dL 8:45 PM CDT LABORATORIES [facility] eGFR-Non 79 >=60 06/29/2018 [facility] Black/ mL/min/BSA 8:45 PM T LABORATORIES [facility] Comment: ----ADDITIONAL INFORMATION---- Estimated GFR calculated using the 2009 CKD_EPI creatinine equation. eGFR-Black/ >90 >=60 mL/min/BSA 06/29/2018 8:45 [facility] Comment: ----ADDITIONAL INFORMATION---- Estimated GFR calculated using the 2009 CKD_EPI creatinine equation. Calcium, Total, S 9.7 8.8 - 10.2 06/29/2018 8:45 PM [facility] mg/dL T [facility] Glucose, S 123 70 - 140 mg/dL 06/29/2018 8:45 PM [facility] Protein, Total, S 7.2 6.3 - 7.9 g/dL 06/29/2018 8:45 P M [facility] Albumin, S 4.0 3.5 - 5.0 g/dL 06/29/2018 8:46 PM [facility] Aspartate 20 8 - 43 U/L 06/29/2018 9:24 PM [facility] Aminotransferase (AST), S T [facility] Alkaline Phosphatase, S 83 35 - 104 U/L 06/29/2018 8: 45 PM [facility] Alanine Aminotransferase 25 7 - 45 U/L 06/29/2018 10: 54 [facility] (ALT), S PM [facility] Bilirubin, Total, S 0.7 <=1.2 mg/dL 06/29/2018 8:45 PM [facility] Specimen Anatomical Collection Method Collection Time Receive d Time (Source) Location / / Volume Laterality Blood (Blood, 06/29/2018 7:25 PM 06/30/19 19 7:49 Venous) CDT PM CDT Alysha Charles P.A.-C. LAB BLOOD ADD-ON Performing Organization Address City/State/ZIP Code Phon e Number [facility] - [address] [place], [place] [address] [facility] ECG 12 Lead (06/29/2018 6:26 PM CDT) [facility] gist Method Time Signature Ventricular 148 BPM MUSE Rate ECG/Min QRSD Interval 88 ms MUSE QT Interval 350 ms MUSE QTC Interval 549 ms MUSE P [place] -118 degrees MUSE R [place] 96 degrees MUSE T Wave [place] 4 degrees MUSE CODED DIAGNOSIS Atrial MUSE flutter Specimen Anatomical Collection Method Collection Time Receive d Time (Source) Location / / Volume Laterality 06/29/2018 6:26 PM 9 6:30 CDT PM CDT Impressions MUSE - 06/29/2018 6:30 PM CDT Atrial flutter with 2:1 A-V conduction Rightward axis Nonspecific ST and T wave abnormality When compared with ECG of 15-JUL-2012 12 :40, Significant changes have occurred Narrative This result has an attachment that is no t available. Procedure Note Errol Fisher M.D. - 06/29/2018Formatt ing of this note might be different from the original. IMPRESSION: Atrial flutter with 2:1 A-V conduction Rightward axis Nonspecific ST and T wave abnormality When compared with ECG of 15-JUL-2012 12 :40, Significant changes have occurred Alysha Charles P.A.-C. ECG ORDERABLES Performing Organization Address City/State/ZIP Code Phon e Number MUSE MUSE NA documented in this encounter Visit Diagnoses Diagnosis Flutter Atrial (HCC) - Primary Decline Functional Status Fatigue Chronic Hypertensive Heart Disease With Heart Fa ilure (HCC) Asthma NOS Apnea Sleep Obstructive Constipation Diabetes Mellitus Type 2 Without Complic ation (HCC) Other Specified Anxiety Disorders Dyspnea NOS Fibromyalgia Gastroesophageal Reflux Disease NOS Anemia Iron Deficiency Pain Musculoskeletal Widespread Chronic Posttraumatic Stress Disorder Brief Unsteadiness Gait Disorder Non Orthopedi c Acute On Chronic Diastolic (Congestive) Heart Failure (HCC) Migraine Headache Hyperlipidemia On Treatment Thrombus Atrial (HCC) documented in this encounter Admitting Diagnoses Diagnosis Flutter Atrial (HCC) documented in this encounter Administered Medications Inactive Administered Medications - up to 3 most recent administrations Medication Order MAR Action Action Date Dose Rate Site acetaminophen tablet 1,000 mg Given 07/06/2018 6:55 AM CDT 1,000 mg (TYLENOL) 1,000 mg, oral, Every 6 hours PRN, mild pain or score 1-3 of 10, fever, Notify sevice prior to first administration for fever, Starting on Fri06/29/18 at 1816 Given 07/06/2018 12:44 AM CDT 1,000 mg Given 07/05/2018 8:19 AM CDT 1,000 mg dilTIAZem 1 mg/mL in NaCl 0.9% 125 New Bag 06/30/2018 5:00 AM CDT 15 mg/hr 15 mL/hr mL infusion (CARDIZEM) 5-15 mg/hr (5-15 mL/hr), intravenous, Continuous, Starting on Fri06/29/18 at 1930, Type: Titrate, Initiate at: 5 mg/hr, Titrate at: 2.5 mg/hr every 15 min., Goal: HR 60-100 New Bag 06/29/2018 8:06 PM CDT 5 mg/hr 5 mL/hr dilTIAZem 24 hr capsule 120 mg (DILACOR Given 07/01/2018 9:06 AM CDT 120 mg XR/DILT-XR) 120 mg, oral, Daily, First dose on Fri07/01/18 at 0900, Swallow whole. Do NOT crush, chew or open capsule. dilTIAZem 24 hr capsule 180 mg (DILACOR Given 07/02/2018 9:03 AM CDT 180 mg XR/DILT-XR) 180 mg, oral, Daily, First dose (after last modification) on Fri07/02/18 at 0900, Swallow whole. Do NOT crush, chew or open capsule. dilTIAZem 24 hr capsule 240 mg (DILACOR Given 07/06/2018 8:53 AM CDT 240 mg XR/DILT-XR) 240 mg, oral, Daily, First dose (after last modification) on Fri07/03/18 at 0900, Swallow whole. Do NOT crush, chew or open capsule. Given 07/05/2018 8:19 AM CDT 240 mg Given 07/04/2018 8:24 AM CDT 240 mg dilTIAZem tablet 60 mg (CARDIZEM) Given 06/30/2018 6:45 PM CDT 60 mg 60 mg, oral, Every 6 hours scheduled, First dose (after last modification) on Fri06/30/18 at 1300 Given 06/30/2018 12:55 PM CDT 60 mg dilTIAZem tablet 60 mg (CARDIZEM) Given 07/01/2018 3:06 PM CDT 60 mg 60 mg, oral, Once, On Fri07/01/18 at 1445, For 1 dose dilTIAZem tablet 60 mg (CARDIZEM) Given 07/02/2018 7:08 PM CDT 60 mg 60 mg, oral, Once, On Jany 07/02/18 at 1845, For 1 dose docusate sodium capsule 100 mg (COLACE) Given 07/05/2018 11:45 AM CDT 100 mg 100 mg, oral, 2 times daily PRN, constipation, Starting on Fri06/29/18 at 1812, Do NOT crush or chew. Given 07/02/2018 8:19 PM CDT 100 mg Given 06/30/2018 4:52 PM CDT [address] capsule 30 mg (CYMBALTA) Given 07/06/2018 8:54 AM CDT 30 mg 30 mg, oral, 2 times daily, First dose on Fri06/29/18 at 2100, See tube feeding guidelines for tube feeding administration instructions. Given 07/05/2018 9:14 PM CDT 30 mg Given 07/05/2018 8:19 AM CDT 30 mg enoxaparin injection 80 mg Given 07/05/2018 8:19 AM CDT 80 mg Left Lower Abdomen (LOVENOX) 80 mg (rounded from 88.6 mg = 1 mg/kg ? 88.6 kg Dosing weight), subcutaneous, 2 times daily, First dose on Fri07/03/18 at 0930, Drug Monitoring Program: Pharmacist to adjust medication dosing based on indication and drug clearance factors. Given 07/04/2018 9:04 PM CDT 80 mg Right Lower Abdomen Given 07/04/2018 8:24 AM CDT 80 mg Right Lower Abdomen estradiol tablet 1 mg (ESTRACE) Given 07/06/2018 8:54 AM CDT 1 mg 1 mg, oral, Daily, First dose on Fri06/30/18 at 0900 Given 07/05/2018 8:19 AM CDT 1 mg Given 07/04/2018 8:24 AM CDT 1 mg fentaNYL injection (SUBLIMAZE) Given 07/01/2018 11:44 AM 25 mcg Code/trauma/sedation medication, Starting on CDT Fri07/01/18 at 1140 Given 07/01/2018 11:40 AM CDT [address] tablet 65 mg of Given 07/06/2018 8:53 AM CDT 65 mg of iron iron 65 mg of iron, oral, Daily, First dose on Fri06/30/18 at 0900, 325 mg contains 65 mg of elemental iron. Swallow whole. Do NOT crush, chew, or split tablet. Given 07/05/2018 8:19 AM CDT 65 mg of iron Given 07/04/2018 8:24 AM CDT 65 mg of iron fluticasone furoate 100 mcg/actuation inhaler Given 8:59 AM CDT 1 puff 1 puff (ARNUITY ELLIPTA) 1 puff, inhalation, Daily, First dose on Fri06/30/18 at 0900, Rinse mouth with water after use to reduce aftertaste and incidence of candidiasis. Do not swallow. Given 07/05/2018 8:19 AM CDT 1 puff Given 07/04/2018 8:28 AM CDT 1 puff heparin (porcine) 1,000 unit/mL Given 07/02/2018 3:03 PM CDT 2,7 00 Units injection 2,700 Units 2,700 Units (rounded from 2,658 Units = 30 Units/kg ? 88.6 kg Dosing weight), intravenous, Once, On Jany 07/02/18 at 1445, For 1 dose heparin (porcine) 1,000 unit/mL Given 07/01/2018 2:34 PM CDT 5,3 00 Units injection 5,300 Units 5,300 Units (rounded from 5,316 Units = 60 Units/kg ? 88.6 kg Dosing weight), intravenous, Once, On Fri07/01/18 at 1230, For 1 dose, initial loading dose heparin (porcine) 1,000 unit/mL Given 07/01/2018 11:02 PM CDT 5, 300 Units injection 5,300 Units 5,300 Units (rounded from 5,316 Units = 60 Units/kg ? 88.6 kg Dosing weight), intravenous, Once, On Fri07/01/18 at 2300, For 1 dose heparin (porcine) 100 Restarted 07/02/2018 7:20 AM 14 Units/kg/hr 12 .4 mL/hr Units/mL in D5W 250 mL CDT infusion 14 Units/kg/hr ? 88.6 kg Dosing weight (12.404 mL/hr, rounded to 12.4 mL/hr), intravenous, Continuous, Starting on Fri07/01/18 at 1230, Premix ba,000 Units in 250 mL, Pharmacist to Dose Intensity Type: Moderate, aPTT: less than 40: IV push loading dose 60 units/kg; Continue infusion; Increase IV dose by 4 units/kg/hr; Repeat aPTT in 6 hours, aPTT: 40-49: IV push loading dose 30 units/kg; Continue infusion; Increase IV dose by 2 units/kg/hour; Repeat aPTT in 6 hours, aPTT: 50-80: No loading dose; Continue infusion; No change in rate; Repeat aPTT: 1st level = in 6 hours, 2nd and beyond = next AM, aPTT: 81-90: No loading dose; Continue infusion; Decrease IV dose by 1 unit/kg/hr; Repeat aPTT in 6 hours, aPTT: 91-120: No loading dose; Stop infusion for 1 hour; Decrease IV dose by 2 units/kg/hr; Recheck aPTT 6 hours after heparin resumed, aPTT: greater than 120: No loading dose; Stop infusion for 2 hours; Decrease IV dose by 4 units/kg/hr; Recheck aPTT 6 hours after heparin resumed Rate/Dose Change 07/01/2018 10:56 PM CDT 16 Units/kg/hr 14.2 mL/hr New Bag 07/01/2018 2:34 PM CDT 12 Units/kg/hr 10.6 mL/hr heparin (porcine) 100 New Bag 07/03/2018 5:00 AM CDT 15 Units/kg/h r 13.3 mL/hr Units/mL in D5W 250 mL infusion 15 Units/kg/hr ? 88.6 kg Dosing weight (13.29 mL/hr, rounded to 13.3 mL/hr), intravenous, Continuous, Starting on Jany 07/02/18 at 0900, Premix ba,000 Units in 250 mL, Pharmacist to Dose Intensity Type: Moderate, aPTT: less than 40: IV push loading dose 60 units/kg; Continue infusion; Increase IV dose by 4 units/kg/hr; Repeat aPTT in 6 hours, aPTT: 40-49: IV push loading dose 30 units/kg; Continue infusion; Increase IV dose by 2 units/kg/hour; Repeat aPTT in 6 hours, aPTT: 50-80: No loading dose; Continue infusion; No change in rate; Repeat aPTT: 1st level = in 6 hours, 2nd and beyond = next AM, aPTT: 81-90: No loading dose; Continue infusion; Decrease IV dose by 1 unit/kg/hr; Repeat aPTT in 6 hours, aPTT: 91-120: No loading dose; Stop infusion for 1 hour; Decrease IV dose by 2 units/kg/hr; Recheck aPTT 6 hours after heparin resumed, aPTT: greater than 120: No loading dose; Stop infusion for 2 hours; Decrease IV dose by 4 units/kg/hr; Recheck aPTT 6 hours after heparin resumed Rate/Dose Change 07/02/2018 10:09 PM CDT 15 Units/kg/hr 13.3 mL/hr Rate/Dose Verify 07/02/2018 9:00 PM CDT 16 Units/kg/hr 14.2 mL/hr insulin aspart U-100 Given 06/30/2018 6:23 PM CDT 2 Units Left Lower Abdomen injection 0-13 Units (NovoLOG FlexPen) 0-13 Units, subcutaneous, 3 times daily, First dose on Fri06/30/18 at 0800, Insulin Scale: Moderate Correction Scale, 140 - 179: 2 units, 180 - 219: 4 units, 220 - 259: 6 units, 260 - 299: 8 units, 300 - 339: 10 units, 340 - 379: 12 units, 380 - 399: 13 units, Greater than 399: Call service writing Insulin orders lidocaine 4 % (40 mg/mL) mucosal solution Given 07/01/2018 11:37 AM CDT 3 mL (XYLOCAINE) Code/trauma/sedation medication, Starting on Fri07/01/18 at 1137 lidocaine 5 % ointment 1 application Given 07/01/2018 11:16 AM CDT 1 application (XYLOCAINE) 1 application, mouth/throat, As needed, mild pain or score 1-3 of 10, See protocol, Starting on Fri07/01/18 at 1107, MAX of 20 g of ointment/day losartan tablet 50 mg (COZAAR) Given 07/06/2018 8:53 AM CDT 50 mg 50 mg, oral, Daily, First dose on Fri07/04/18 at 0900 Given 07/05/2018 8:19 AM CDT 50 mg Given 07/04/2018 8:24 AM CDT 50 mg losartan-hydroCHLOROthiazide 100-12.5 mg Given 07/03/2018 8:22 A M CDT 1 tablet per tablet 1 tablet (HYZAAR) 1 tablet, oral, Daily, First dose on Fri06/30/18 at 0900 Given 07/02/2018 9:04 AM CDT 1 tablet Given 07/01/2018 9:06 AM CDT 1 tablet magnesium sulfate in water IVPB 2 g New Bag 06/30/2018 11:14 AM CDT 2 g 25 mL/hr 2 g, intravenous, at 25 mL/hr, Administer over 120 Minutes, Once, On Fri06/30/18 at 1015, For 1 dose, Over 2 hours. premix bag magnesium sulfate in water IVPB 2 g New Bag 07/05/2018 11:23 AM CDT 2 g 25 mL/hr 2 g, intravenous, at 25 mL/hr, Administer over 120 Minutes, Once, On Fri07/05/18 at 1115, For 1 dose, premix bag methyl salicylate-menthol ointment 1 Given 07/05/2018 7:53 P M CDT 1 application application (BENGAY) 1 application, topical, 3 times daily PRN, muscle/joint pain, Starting on Fri06/30/18 at 0457 Given 06/30/2018 9:24 PM CDT 1 application Given 06/30/2018 12:56 PM CDT 1 application metoprolol tartrate tablet 100 mg (LOPRE SSOR) Given 07/06/2018 8:53 AM CDT 100 mg 100 mg, oral, 2 times daily, First dose (after last modification) on Fri07/02/18 at 2100 Given 07/05/2018 9:14 PM CDT 100 mg Given 07/05/2018 8:19 AM CDT 100 mg metoprolol tartrate tablet 25 mg (LOPRES SOR) Given 06/30/2018 4:52 PM CDT 25 mg 25 mg, oral, 4 times daily, First dose (after last modification) on Fri06/30/18 at 1215 Given 06/30/2018 12:55 PM CDT 25 mg metoprolol tartrate tablet 25 mg (LOPRES SOR) Given 07/01/2018 3:06 PM CDT 25 mg 25 mg, oral, Once, On Fri07/01/18 at 1445, For 1 dose metoprolol tartrate tablet 25 mg (LOPRES SOR) Given 07/02/2018 4:30 AM CDT 25 mg 25 mg, oral, Once, On Fri07/02/18 at 0430, For 1 dose metoprolol tartrate tablet 50 mg (LOPRES SOR) Given 07/01/2018 9:05 AM CDT 50 mg 50 mg, oral, 2 times daily, First dose (after last modification) on Fri06/30/18 at 2100 Given 06/30/2018 9:31 PM CDT 50 mg metoprolol tartrate tablet 75 mg (LOPRES SOR) Given 07/02/2018 9:03 AM CDT 75 mg 75 mg, oral, 2 times daily, First dose (after last modification) on Fri07/01/18 at 2100 Given 07/01/2018 8:34 PM CDT 75 mg midazolam (PF) injection (VERSED) Given 07/01/2018 11:44 AM CDT 2 mg Code/trauma/sedation medication, Starting on Fri07/01/18 at 1140 Given 07/01/2018 11:42 AM CDT 1 mg Given 07/01/2018 11:40 AM CDT [address] tablet 40 mg (PROTONIX) Given 07/06/2018 6:21 AM CDT 40 mg 40 mg, oral, Daily before breakfast, First dose on Fri06/30/18 at 0700, Swallow whole. Do NOT crush, chew, or split tablet. Given 07/05/2018 6:59 AM CDT 40 mg Given 07/04/2018 8:25 AM CDT 40 mg potassium chloride ER tablet 40 mEq Given 07/02/2018 10:57 AM CD T 40 mEq (KLORCON/K-TAB) 40 mEq, oral, Once, On Fri07/02/18 at 0715, For 1 dose, Swallow whole. Do NOT crush, chew, or split tablet. pravastatin tablet 40 mg (PRAVACHOL) Given 07/05/2018 9:14 PM CDT 40 mg 40 mg, oral, Daily at bedtime, First dose on Fri06/29/18 at 2100, pravastatin 40 mg oral daily was interchanged for simvastatin 20 mg oral daily Given 07/04/2018 9:04 PM CDT 40 mg Given 07/03/2018 8:59 PM CDT 40 mg rivaroxaban tablet 20 mg (XARELTO) Given 06/30/2018 4:52 PM CDT 20 mg 20 mg, oral, Daily with dinner, First dose on Fri06/29/18 at 1930, Drug Monitoring Program: Pharmacist to adjust medication dosing based on indication and drug clearance factors. Given 06/29/2018 8:11 PM CDT 20 mg sodium chloride 0.9 % injection 20 mL Given 07/01/2018 12:11 PM CDT 20 mL 20 mL, intravenous, As needed, line care, for agitated saline (bubble) studies, Starting on Fri07/01/18 at 1107, See protocol sodium chloride 0.9 % injection 3 mL Given 07/06/2018 8:59 AM CDT 3 mL 3 mL, intravenous, Every 12 hours scheduled, First dose on Fri06/29/18 at 2100, Peripheral Intravenous Catheter and Rapid Infusion Catheter, when no infusion to maintain patency Given 07/05/2018 9:14 PM CDT 3 mL Given 07/05/2018 8:20 AM CDT 3 mL SUMAtriptan tablet 50 mg (IMITREX) Given 06/30/2018 11:15 AM CDT 50 mg 50 mg, oral, Every 2 hour PRN, migraine, Starting on Fri06/30/18 at 1045, For 2 doses, SUMAtriptan oral was interchanged for rizatriptan topiramate tablet 25 mg (TOPAMAX) Given 07/06/2018 8:53 AM CDT 25 mg 25 mg, oral, 2 times daily, First dose on Fri06/29/18 at 2100 Given 07/05/2018 9:14 PM CDT 25 mg Given 07/05/2018 8:20 AM CDT 25 mg warfarin management (COUMADIN) oral, Daily, First dose on Fri07/01/18 at 1230, Pharma cist to Dose: Yes, Target INR: 2.5 - 3.5, Comorbidities that constitute Warfarin Sensitivity: No known comorbidities that change warfarin sensitivity, Indica tion: Other, Explanatory Comment: left atrial thrombus, Therapy type: New Warfa rin therapy warfarin tablet 4 mg (COUMADIN) Given 07/05/2018 4:14 PM CDT 4 mg 4 mg, oral, Once, On Fri07/05/18 at 1700, For 1 dose warfarin tablet 5 mg (COUMADIN) Given 07/01/2018 7:20 PM CDT 5 mg 5 mg, oral, Once, On Fri07/01/18 at 1700, For 1 dose warfarin tablet 5 mg (COUMADIN) Given 07/02/2018 5:36 PM CDT 5 mg 5 mg, oral, Once, On Jany 07/02/18 at 1700, For 1 dose warfarin tablet 5 mg (COUMADIN) Given 07/04/2018 4:25 PM CDT 5 mg 5 mg, oral, Once, On 07/04/18 at 1700, For 1 dose warfarin tablet 7.5 mg (COUMADIN) Given 07/03/2018 5:11 PM CDT 7.5 mg 7.5 mg, oral, Once, On Fri07/03/18 at 1700, For 1 dose documented in this encounter Active and Recently Administered Medications Times are shown in CDT. Scheduled Medication Order 07/04/2018 07/05/2018 07/06/2018 dilTIAZem 24 hr capsule 240 mg (DILACOR XR/DILT-XR) 08 24 (Given - Provider: Juany Callaway R.N.) 08 (Given - Provider: Juany Callaway R.N.) 0853 (Given - Provider: Jessica Dominguez R.NEdilma) 240 mg, oral, Daily, First dose (after l ast modification) on Fri07/03/18 at 0900, Swallow whole. Do NOT crush, chew or open capsule. DULoxetine DR capsule 30 mg (CYMBALTA) 0824 (Given - P rovider: Juany Callaway R.N.)2103 (Given - Provider: Rosemarie Han REdilmaNEdilma) 08 (Given - Provider: Juany Callaway R.N.)2113 (Given - Provider: Moise OmalleyNEdilma) 0854 (Given - Provider: Jessica baird R.NEdilma) 30 mg, oral, 2 times daily, First dose o n Fri06/29/18 at 2100, See tube feeding guidelines for tube feeding administration instructions. enoxaparin injection 80 mg (LOVENOX) (CANCELED) 0824 ( Given - Provider: Juany Callaway R.N.)2103 (Given - Provider: Rosemarie Han R.N.) 08 (Given - Provider: Juany Callaway R.N.) 80 mg (rounded from 88.6 mg = 1 mg/kg ? 88.6 kg Dosing weight), subcutaneous, 2 times daily, First dose on Fri07/03/18 at 0930, Drug Monitoring Program: Pharmacist to adjust medication dosing based o n indication and drug clearance factors. estradiol tablet 1 mg (ESTRACE) 823 (Given - Provider : Juany Callaway R.N.) 08 (Given - Provider: Moise MitchellN.) 08 54 (Given - Provider: Moise JonesNEdilma) 1 mg, oral, Daily, First dose on Fri06/30/18 at [address] tablet 65 mg of iron 823 (Given - Provider: Moise MitchellN.) 818 (Given - Provider: Moise MitchellNEdilma) 08 53 (Given - Provider: Moise JonesNEdilma) 65 mg of iron, oral, Daily, First dose o n Fri06/30/18 at 0900, 325 mg contains 65 mg of elemental iron. Swallow whole. Do NOT crush, chew, or split tablet. fluticasone furoate 100 mcg/actuation inhaler 1 puff ( ARNUITY ELLIPTA) 827 (Given - Provider: Moise MitchellNEdilma) 08 (Given - Provider: Moise MitchellNEdilma) 0859 (Given - Provider: Jessica baird R.NEdilma) 1 puff, inhalation, Daily, First dose on Fri06/30/18 at 0900, Rinse mouth with water after use to reduce aftertaste and incidence of candidiasis. Do not swallow. losartan tablet 50 mg (COZAAR) 823 (Given - Provider: Moise MitchellN.) 08 (Given - Provider: Moise MitchellN.) 08 53 (Given - Provider: Moise JonesNEdilma) 50 mg, oral, Daily, First dose on Fri07/04/18 at 0900 magnesium sulfate in water IVPB 2 g (COMPLETED) 3 (New Bag - Provider: Juany Callaway R.N.) 2 g, intravenous, at 25 mL/hr, Administe r over 120 Minutes, Once, On Fri07/05/18 at 1115, For 1 dose, premix bag metoprolol tartrate tablet 100 mg (LOPRESSOR) 08 (Gi justo - Provider: Juany Callaway R.N.)2103 (Given - Provider: Rosemarie Han R.N.) 818 (Given - Provider: Juany Callaway R.N.)2113 (Given - Provider: Renetta Carney R.N.) 08 (Given - Provider: Jessica baird REdilmaNEdilma) 100 mg, oral, 2 times daily, First dose (after last modification) on Jany 07/02/[address] tablet 40 mg (PROTONIX) 824 (Given - Provider: Juany Callaway R.N.) 06 (Given - Provider: Renetta Carney R.N.) 620 (G iven - Provider: Renetta Carney R.N.) 40 mg, oral, Daily before breakfast, Fir st dose on Fri06/30/18 at 0700, Swallow whole. Do NOT crush, chew, or split tablet. pravastatin tablet 40 mg (PRAVACHOL) 2103 (Given - Pro vider: Rosemarie Han R.N.) 2113 (Given - Provider: Renetta Carney R.N.) 40 mg, oral, Daily at bedtime, First dos e on 06/29/18 at 2100, pravastatin 40 mg oral daily was interchanged for simvastatin 20 mg oral daily sodium chloride 0.9 % injection 3 mL 829 (Given - Pro vider: Juany Callaway R.N.)2104 (Given - Provider: Rosemarie Han R.N.) 08 (Given - Provider: Juany Callaway R.N.)2113 (Given - Provider: Renetta Carney R.N.) 0859 (Given - Provider: Jessica baird REdilmaNEdilma) 3 mL, intravenous, Every 12 hours schedu led, First dose on Fri06/29/18 at 2100, Peripheral Intravenous Catheter and Rapid Infusion Catheter, when no infusion to maintain patency topiramate tablet 25 mg (TOPAMAX) 0825 (Given - Provid er: Juany Callaway R.N.)2103 (Given - Provider: Moise BarnettNEdilma) 08 (Given - Provider: Juany Callaway R.N.)2113 (Given - Provider: Renetta Carney R.N.) 0853 (Given - Provider: Jessica baird R.NEdilma) 25 mg, oral, 2 times daily, First dose on Fri06/29/18 at 2100 warfarin management (COUMADIN) 1700 (Due) 1700 (Due) oral, Daily, First dose on Fri07/01/18 a t 1230, Pharmacist to Dose: Yes, Target INR: 2.5 - 3.5, Comorbidities that constitute Warfarin Sensitivity: No known comorbidities that change warfarin sensitivit y, Indication: Other, Explanatory Commen t: left atrial thrombus, Therapy type: New Warfarin therapy warfarin tablet 4 mg (COUMADIN) (COMPLETED) 161 (Given - Provider: Juany Callaway R.N.) 4 mg, oral, Once, On 07/05/18 at 1700, For 1 dose warfarin tablet 5 mg (COUMADIN) (COMPLETED) 162 (Give n - Provider: Juany Callaway R.N.) 5 mg, oral, Once, On 07/04/18 at 1700, For 1 dose PRN Medication Order 07/04/2018 07/05/2018 07/06/2018 acetaminophen tablet 1,000 mg (TYLENOL) 0420 (Given - Provider: Rosita Emerson R.N.) 0158 (Given - Provider: Renetta Carney R.N.)0819 (Given - Provider: Juany Callaway R.N.) 0044 (Given - Provider: Adonay Pablo)0655 (Given - Provider: Renetta Carney RManjeet.) 1,000 mg, oral, Every 6 hours PRN, mild pain or score 1-3 of 10, fever, Notify sevice prior to first administration for fever, Starting on Fri06/29/18 at 1816 albuterol 90 mcg/actuation inhaler 1 puff (PROVENTIL HFA,VENTOLI N HFA) 1 puff, inhalation, Every 4 hours PRN, w heezing, shortness of breath, Starting Fri06/29/18 at 195 calcium carbonate chewable tablet 400 mg of calcium (TUMS) 400 mg of calcium, oral, Every 2 hour GA N, indigestion, Not to exceed 12 tablets in 24 hours, Starting Fri06/29/18 at 181, Doses listed are in mg of elemental calcium. Take with food. 500 mg calcium carbonate contains 200 mg of elemental calcium. docusate sodium capsule 100 mg (COLACE) 1145 (Given - Provider: Juany Callaway R.N.) 100 mg, oral, 2 times daily PRN, constip ation, Starting on Fri06/29/18 at 181, Do NOT crush or chew. lidocaine 5 % ointment 1 application (XYLOCAINE) 1 application, mouth/throat, As needed, mild pain or score 1-3 of 10, See protocol, Starting on Fri07/01/18 at 1107, MAX of 20 g of ointment/day methyl salicylate-menthol ointment 1 application (BENGAY) 1952 (Given - Provider: Renetta Carney R.N.) 1 application, topical, 3 times daily GA N, muscle/joint pain, Starting on Fri06/30/18 at 0457 sodium chloride 0.9 % injection 10 mL 10 mL, intravenous, As needed, line care , Starting Fri06/29/18 at 1812, Peripheral Intravenous Catheter and Rapid Infusion Catheter, prior to blood sampling, post blood transfusion or post blood sampling sodium chloride 0.9 % injection 20 mL 20 mL, intravenous, As needed, line care , for agitated saline (bubble) studies, Starting on Fri07/01/18 at 1107, See protocol sodium chloride 0.9 % injection 3 mL 3 mL, intravenous, As needed, line care, Starting Fri06/29/18 at 1812, Prior to and following infusion and between multiple consecutive infusions: sodium chloride 0.9 % injection SUMAtriptan tablet 50 mg (IMITREX) 50 mg, oral, Every 2 hour PRN, migraine, Starting on Fri06/30/18 at 1045, For 2 doses, SUMAtriptan oral was interchanged for rizatriptan documented in this encounter Additional Health Concerns Assessment Noted Time PHQ-9 Depression Total Score: 05/04/2013 4:05 PM CS T documented as of this encounter Care Teams Special Equipment Technician Relationship Specialty Start Date End Date Vianney Barrera APRN, C.N.P., PCP - General Internal Medicine 07/06/18 07/26/18 M.S.N. [address] [place] [address] documented as of this encounter
--- OUTSIDE RECORDS SUMMARY | 2021-12-27 05:29 | XMS_ITS | Encounter Summary ---
:1955 Author Organization [facility] Address [address] [place] [address] Care Team Providers Name Role Phone Elsewhere, Pcp Primary Care Provider Unavailable Reason for Referral Outpatient (Routine) - Closed Specialty Diagnoses / Referred By Contact Referred To Contact Procedures Cardiovascular Diseases / Diagnoses Flutter Atrial (HCC) 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) [facility] Luan Monroy [address] [place] [address] Referral ID Status Reason Start Date Expiration Date Visits Requ ested Visits Authorized [id number] Closed 09/14/2018 09/14/2019 1 1 Outpatient (Routine) - Closed Specialty Diagnoses / Procedures Referred By Contact Refer red To Contact [facility] Bess Monroy [address] [place] [address] Referral ID Status Reason Start Date Expiration Date Visits Requ ested Visits Authorized [id number] Closed 09/14/2018 09/14/2019 1 1 Scheduling Instructions With myself in 1 month on a friday af ternoon Reason for Visit Outpatient (Routine) - Closed Specialty Diagnoses / Referred By Contact Referred To Contact Procedures Cardiovascular Diseases / Diagnoses Flutter Atrial (HCC) Oralia Ricks, [facility] Cardiovascular Disease Dulce SARABIA [address] [place] [address] Referral ID Status Reason Start Date Expiration Date Visits Requ ested Visits Authorized [id number] Closed 07/03/2018 07/03/2019 1 1 Encounter Details Date Type Department Care Team Description 09/14/2018 Comprehensive Visit Department of Shobha, Flutter Atrial (HCC) (Primary Dx); Cardiovascular Medicine Gurjit Gutiérrez Atrial (HCC); in [facility] nasim RendonS. Acute On Chronic Combined Systolic (Adonis estive) And Diastolic (Congestive) Heart Failure (HCC) [address] [facility] [address] [facility] [address] [facility] [phone] [place] [id number] Social History Tobacco Use Types Packs/Day Years [...] Sign Reading Time Taken Comments Blood Pressure 121/82 09/14/2018 8:32 AM CDT Pulse 76 09/14/2018 8:32 AM CDT Temperature - - Respiratory Rate - - Oxygen Saturation - - Inhaled Oxygen Concentration - - Weight 94.4 kg (208 lb 1.8 oz) 09/14/2018 8:32 AM CDT Height 165 cm (5' 4.96) 09/14/2018 8:32 AM CDT Body Mass Index 34.67 09/14/2018 8:32 AM CDT documented in this encounter Consult Porfirio Bray M.D. - 09/14/2018 8:30 AM CDT REASON FOR VISIT Atrial flutter HISTORY OF PRESENT ILLNESS I had the pleasure of seeing Mrs. Metcalf in posthospitalization follow-up in the [facility]. She is a 63-year-old woman with a history of atrial flutter (diagnosed in the summer), hypertension, hyperlipidemia, type 2 diabetes, sleep apnea, mitral regurgitation, and personality disorder. She was admitted to an outside hospital in the beginning of June 2018 with symptomatic atrial flutter. She was treated with Xarelto and diltiazem which converted to sinus rhythm. Her EF by transthoracic echocardiogram was noted to be borderline about 47%. She was also noted to have moderate to severe mitral regurgitation by outside echocardiogram. On the 29 of June she was again admitted, thist[facility] at [facility] with recurrent atrial flutter with RVR. A cardioversion was planned, but MICHAEL revealed left atrial appendage thrombus. Xarelto was discontinued, and she was started on warfarin with a goal INR of 2.5-3.5. A concern for medication noncompliance with Xarelto was noted at the time. She was eventually discharged on diltiazem and metoprolol with a plan for follow-up as an outpatient and consideration of rhythm control approaches once there is documentation of resolution of theleft atrial appendage thrombus. She is currently on diltiazem 360 mg daily and metoprolol tartrate 100 mg b.i.d. She has transitioned to a long-term care facility where there is supervision of her medical care. Since discharge from the hospital at [place], she had another brief admission elsewherefor recurrent atrial flutter with RVR. Currently, Mrs. Metcalf is telling me that she experiences episodic palpitations as well as sharp chest discomfort in the middle of the chest, mostly unrelated to exertion. I note that this complaint has been brought up previously, and she has had ischemic evaluation with a positive nuclear stress test that was followed by normal CT angiogram of the coronary arteries in 2018. She complains more importantly of worsening dyspnea on exertion, even with minimal exertion. She uses a walker to ambulate within the care facility. She does not exercise regularly. She denies orthopnea, PND, syncope, or presyncope. She has lower extremity edema which apparently is actually improved now after the use of compression stockings. Current Outpatient Medications: ??? acetaminophen (TYLENOL) 325 mg tablet, Take 650 mg by mouth every 6 (six) hours., Disp: , Rfl: ??? albuterol (PROAIR HFA) 90 mcg/actuation inhaler, Inhale 1-2 puffs every 4 (four) hours as neededfor shortness of breath., Disp: 1 Inhaler, Rfl: 11 ??? aspirin [address] tablet, Take 81 mg by mouth daily., Disp: , Rfl: ??? clotrimazole-betamethasone (LOTRISONE) 1-0.05 % cream, Apply 1 application topically 2 (two) times a day., Disp: , Rfl: ??? dilTIAZem CD (CARDIZEM CD/CARTIA XT) 360 mg 24 hr capsule, Take 360 mg by mouth daily., Disp: , Rfl: [...] puff daily. Asthma, Disp: , Rfl: ??? levothyroxine (SYNTHROID, LEVOTHROID) 25 mcg tablet, Take 25 mcg by mouth every morning before breakfast., Disp: , Rfl: ??? losartan (COZAAR) 50 mg tablet, Take 1 tablet (50 mg total) by mouth daily. For hypertension., Disp: 30 tablet, Rfl: 0 ??? metFORMIN (GLUCOPHAGE) 500 mg tablet, Take [...] for chest pain., Disp: , Rfl: ??? pantoprazole (PROTONIX) 40 [...] resume management as per previous homegoing care plan., Disp: 30 tablet, Rfl: 0 ALLERGIES she has No Known Allergies. ROS: Review of 14 systems was negative except as noted above. PHYSICAL EXAMINATION BP 121/82 (BP Location: Right arm, Patient Position: Sitting) Pulse 76 Ht 165 cm Wt 94.4 kg BMI 34.67 kg/m?? Head and neck: Normal Lungs: Clear to auscultation bilaterally. CV: Irregularly irregular, normal S1 S2; 1/6 holosystolic murmur at the apex. Auscultation limited by body habitus. Abdomen: Benign, soft, non-tender. Extremities: 1+ pitting edema in pretibial and pedal areas bilaterally. Well perfused. TESTING ECG September 14, 2018, shows atrial flutter, likely CTI dependent, with variable AV block, average ventricular rate 76 beats per minute. MICHAEL July 01, 2017, shows left atrial appendage thrombus, multilobulated mass with mobile components, and spontaneous left atrial echo contrast. Moderate LV enlargement with LVEF of 45%, mild to moderate mitral regurgitation, moderate TR, severe biatrial enlargement. Outside TTE June 23, 2018, shows EF 47%, moderate to severe MR. IMPRESSION/REPORT/PLAN 1. Atrial flutter 2. Heart failure exacerbation 3. Left atrial appendage thrombus 4. Mitral regurgitation 5. Left atrial enlargement 6. Hypertension 7. Hyperlipidemia 8. Type 2 diabetes 9. CHAPITO Ms. Metcalf presents today for evaluation of atrial flutter after a finding of a left atrial appendage thrombus by MICHAEL in June. She is currently rate controlled, though it is unclear whether this is the case 14/10 as outpatient. More importantly, she does have evidence of heart failure exacerbation. Also, she has mitral regurgitation and LV enlargement. We discussed treatment with a heart failure regimen, including initiation of Lasix 20 mg daily. She will need followup BMP in about 1 week which can be coordinated by the long-term facility where she currently resides. I provided written instructions specifically regarding the prescription and followup testing. We also discussed the importance of dietary salt and fluid restriction, and I also provided written instructions in the report sheet thatshe will take back to the facility. She will need closer daily weight monitoring. We will make a referral to the Heart Failure Clinic for evaluation and education. I will see her back in 1 month with a MICHAEL to reassess the left atrial appendage thrombus, a Holter monitor, and INR. I have also asked the facility to fax us regular INR values to ensure that she has been therapeutic. At the time of followup, if she is still not a candidate for rhythm control with an ablation procedure because of persistent appendage thrombus, we can consider addition of low-dose digoxin 125 mcg for additional rate control as needed. We will have to be cautious to ensure compliance with anticoagulation if we do decide to pursue rhythm control. She is telling me that she will be transitioning to a another long-term facility where hopefully she will have more supervised care and conc erns for noncompliance will be not an issue anymore. Ms. Metcalf expressed understanding of the above, and questions were answered. I provided my contact information to the patient and also in the report that she will take to her providers in her care facility. We will also send a copy of this note to her primary care doctor. Marla Cerda M.B.B.S. - 09/14/2018 8:30 AM CDT SUBJECTIVE This is a supervisory note for Dr. Villegas. I agree with his documentation, physical exam, assessment, and plan. REASON FOR CONSULT Atrial flutter. HISTORY OF PRESENT ILLNESS The patient is a 63-year-old lady diagnosed with atrial flutter last year but recently admitted because of worsening symptoms. She was noted to have a left atrial appendage thrombus on transesophageal echocardiogram. She was switched from Xarelto to warfarin and discharged. She returns for 2-month post hospitalization followup. She is currently on rate control with diltiazem 360 mg and metoprolol tartrate 100 mg b.i.d. She states that she is more short of breath in the past few weeks, particularly with exertion, and is more tired with exertion. She has also noticed more lower extremity edema, but this improves with compression stockings. ASSESSMENT / PLAN #1 Atrial flutter #2 Heart failure exacerbation #3 Left atrial appendage thrombus #4 Moderate mitral valve regurgitation #5 Hypertension, hyperlipidemia, and type 2 diabetes From the standpoint of atrial flutter, we plan to continue the rate control at this point and repeatTEE in 1 month. We will also repeat a Holter monitor at that time to assess heart rate control. If MICHAEL is negative for thrombus, further rhythm control with either antiarrhythmic plus/minus DC cardioversion or catheter ablation can all be considered. Warfarin is to be continued with target INR of 2-3. She is in heart failure, and I recommended initiation of Lasix 20 mg a day. She will follow up with a local physician for electrolyte check in 1 week. She will require strict salt restriction, restriction of fluids to less than 2 L a day, and daily weights in order to manage her heart failure. I have also recommended Heart Failure Clinic evaluation in a month when she returns. CT CT Job ID: [id number] documented in this encounter Plan of Treatment Scheduled Referrals Name Type Priority Associated Order Schedule Diagnoses Cardiovascular Disease Outpatient Referral Routine Expected: office visit (clinic) 2018 (Approximate), Expires: 09/14/2021 Cardiovascular Disease Outpatient Referral Routine Flutter Atr ial Expected: - Heart failure consult (HCC) 09/14/2018 (clinic) Acute On Chronic (Approximat e), Combined Systolic Expires: (Congestive) And 09/14/2021 Diastolic (Congestive) Heart Failure (HCC) documented as of this encounter Results (ABNORMAL) CBC with Differential, Blood (10/20/2018 3:02 PM CDT) [facility] Method Time Signature Hemoglobin 12.9 11.6 - [...] LAB BLOOD ADD-ON Performing Organization Address [facility] Phon e Number [facility] - [address] [address] [facility] (ABNORMAL) PT (Prothrombin Time) with INR (10/20/2018 3:02 PM CDT) Patholo gist Method Time Signature Prothrombin 25.4 (H) 9.4 [...] LAB BLOOD ADD-ON Performing Organization Address [facility] Code Phon e Number [facility] - [address] [address] [facility] (ABNORMAL) CMP (Comprehensive Metabolic Panel) (10/20/2018 3:02 PM CDT) Analysis Performed At Path logist Time Signature Potassium, S 4.5 3.6 [...] >=60 10/20/2018 Black/ mL/min/BSA 4:05 PM CDT Moldovan Comment: ----ADDITIONAL INFORMATION---- Estimated GFR calculated using [...] Organization Address City/State/ZIP Code Phon e Number [facility] - [address] [place], [place] [address] [facility] HOLTER MONITOR - IN CLINIC LAB ASST (10/20/2018 12:14 PM CDT) [facility] gist Method Time Signature VT Runs 0 count HOLTER SENTINEL VE Total Beats 1 count HOLTER SENTINEL VE Percent 0 percent HOLTER Beats SENTINEL VE Max Per [id number] HOLTER Hour Time SENTINEL VE Max Per 1 count HOLTER Hour SENTINEL Tachycardia 0 count HOLTER Runs SENTINEL SVT Runs 3 count HOLTER SENTINEL SVT Max Rate 123 bpm HOLTER SENTINEL SVE Total 3,120 count HOLTER Beats SENTINEL SVE Percent 4 percent HOLTER Beats SENTINEL SVE Max Per HOLTER Hour Time SENTINEL SVE Max Per 809 count HOLTER Hour SENTINEL Recording Date HOLTER SENTINEL Holter Pauses 0 count HOLTER SENTINEL Min Heart Rate [id number] HOLTER Time SENTINEL Min Heart Rate 40 bpm HOLTER SENTINEL Mean Heart 58 bpm HOLTER Rate SENTINEL Max Heart Rate [id number] HOLTER Time SENTINEL Max Heart Rate 73 [...] e Number HOLTER SENTINEL HOLTER SENTINEL NA (MICHAEL) 2D WITH COLOR, LIMITED DOPPLER AND [...] emptying veloci ty 31 cm/sec. 3. No gtnxk-cf-tnjo shunt at atrial leve l at rest [...] saline in jection(s) performed during sedation. ??No xphfo-dn-fmzq shunt at atrial level at rest or with Va lsalva release. ??The left atrial appendage thrombus is no longer seen. A tiny mobile echodensit y is now seen which has similar tissue density to the surrounding myocardium. Differential inc ludes tiny organized thrombus vs normal left atrial appendage trabeculation. ??No pericardia l effusion. ??PROCEDURE ??Transesophageal echocardiogram performed at the request of the primary sales and service representative. ??Adult probe inserted without difficulty. ??Procedure performed [...] Sedation Narrator or other pertinent record in [facility] for addit ional procedure and sedation [...] emptying veloci ty 31 cm/sec. 3. No agyft-nu-mcqs shunt at atrial leve l at rest [...] saline inje ction(s) performed during sedation. No modok-jq-ekhi shunt at atrial level at rest or with Va lsalva release. The left atrial appendage thrombus is no longer seen. A tiny mobile echodensit y is now seen which has similar tissue density to the surrounding myocardium. Differential inc ludes tiny organized thrombus vs normal left atrial appendage trabeculation. No pericardial effusion. PROCEDURE Transesophageal echocardiogram performed at the request of the primary sales and service representative. Adult probe inserted without difficulty. Procedure performed [...] Sedation Narrator or other pertinent record in [facility] for addit ional procedure and sedation information. Transesophageal echocardiogram completed without complications. For the complete report, see the Order-L evel Documents below. See PDF For Result Porfirio Villegas M.D. 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
[2021-12-27 05:36] LABS: Albumin* 4.3 g/dL (3.3-5.0); Chloride* 101 mmol/L (96-114)
[2021-12-27 05:37] LABS: Potassium* 3.8 mmol/L (3.6-5.1); Sodium* 136 mmol/L (135-149)
[2021-12-27 05:39] LABS: Creatinine* 0.9 mg/dL (0.5-1.5); Est. Creatinine Clearance* 51.14; Estimated Glomerular Filt Rate 71 ml/min
[2021-12-27 05:40] LABS: Alanine Aminotransferase* 45 U/L (4-35); Alkaline Phosphatase* 105 U/L (40-150); Aspartate Amino Transferase* 38 U/L (12-35); Bilirubin Total* 0.3 mg/dL (0.1-1.5); Blood Urea Nitrogen* 14 mg/dL (7-30); Calcium* 8.8 mg/dL (8.4-10.6); Carbon Dioxide* 26 mmol/L (20-32); Glucose* 167 mg/dL (60-115); Lipase* 42 U/L (23-300); Total Protein* 7.6 g/dL (6.0-8.3)
[2021-12-27 05:42] LABS: C Reactive Protein* 0.9 mg/dL (0.5-1.0); INR 2.72 (0.91-1.10); Prothrombin Time 29.2 Seconds
[2021-12-27 05:49] LABS: NT Pro B Type NatriureticPept* 77 PG/mL (0-125)
[2021-12-27 06:21] LABS: D Dimer Quantitative* < 0.27 ug/ml (0.00-0.50); Slide Review Reflex No
--- NOTE | 2021-12-27 06:39 | CRLHL7_ITS ---
For Patients: As a result of the Century Cures Act, medical imaging exams and procedure reports are released immediately into your electronic medical record. You may view this report before your referring provider. If you have questions, please contact your health care provider. Indication: Shortness of breath Comparison: Two-view chest November 28, 2020 Technique: Single AP view chest Findings: There is hyperinflation and chronic interstitial change. There is no focal consolidation, effusion, or pneumothorax. The cardiac silhouette is mildly prominent. The bony thorax is grossly intact. Impression: Mild chronic interstitial change without dense consolidation. Dictated by Hector Cobb MD @ 12/27/2021 7:48:31 AM (Electronically Signed)
--- NOTE | 2021-12-27 07:33 | ED.NURSE ---
Pt up ambulatory to [facility]. Denies pain.
== END 2021-12-27 08:20 | disposition home or self-care (01) ==
PROVIDERS: Emergency Provider Emergency Medicine; PCP Family Medicine
DX: R07.9 Chest pain, unspecified (principal)
CPT/HCPCS: 36415; 71045; 80048; 80076; 83690; 83880; 84484; 85025; 85379; 85610; 86140; 93005; 94761; 99284; 99285; J7120

== ENCOUNTER 2022-01-08 15:47 | Emergency (ER) | payer MEDICARE, MEDICAID, SELFPAY ==
[2022-01-08 16:12] VITALS: BP 152/90; PULSE 74; RESP 18; TEMP 36.9; O2SAT 99; BMI 33.1
[2022-01-08 16:15] VITALS: O2SAT 99
[2022-01-08 16:30] VITALS: BP 144/84; PULSE 75; RESP 18; O2SAT 97
--- NOTE | 2022-01-08 16:31 | CRLHL7_ITS ---
For Patients: As a result of the Century Cures Act, medical imaging exams and procedure reports are released immediately into your electronic medical record. You may view this report before your referring provider. If you have questions, please contact your health care provider. INDICATION: Chest pain. TECHNIQUE: Chest 1 views. COMPARISON: Chest x-ray from 12/27/2021. FINDINGS: Lungs: Clear lungs. No consolidation. Pleura: No pleural effusion or pneumothorax. Heart and Mediastinum: The cardiomediastinal silhouette is normal. The vessels are unremarkable. Bones: Unremarkable. IMPRESSION: No acute cardiopulmonary disease. Dictated by Edgardo Blanco MD @ 01/08/2022 4:57:56 PM (Electronically Signed)
--- OUTSIDE RECORDS SUMMARY | 2022-01-08 16:36 | XMS_ITS | Clinical Summary ---
:1955 Author Organization [facility] Address [address] [place] [address] Care Team Providers Name Role Phone Elsewhere, Pcp Primary Care Provider Unavailable Source Comments Patient records contain information from all sites at [facility]. For routine questions regarding patient records, call [phone] during business hours, M-F 8:00 AM - 5:00 PM Central Time. Record requests for emergency care only can be directed to [phone] at any time.[facility] Allergies Active Allergy Reactions Severity Noted [...] Dr. Yeager on 04/20/2019 -admitted at the [facility] from 06/22/2018 - 06/23/2018, where [...] [facility] Fibromyalgia 06/28/2015 Overview: On duloxetine. Pain currently [...] more drinks on one Never 03/30/2020 occasion? Social Isolation Answer Date Recorded In a typical week, how many times do you More than three javon es a week 03/30/2020 talk on the phone with family, friends, or neighbors? How often do you get together with friends More than three t imes a week 03/30/2020 or relatives? How often do you attend buddhism or Never 2018 baptism services? Do you belong to any clubs or No 02/26/2019 organizations such as buddhism groups, unions, fraTaegeuk Reseach or athletic groups, or school groups? How [...] Comments Blood Pressure 148/86 03/30/2020 1:16 PM FLORICULTURIST Pulse 61 03/30/2020 1:16 PM FLORICULTURIST Temperature 36.1 ??C (97 ??F) 03/30/2020 1:16 PM FLORICULTURIST Respiratory Rate 22 04/21/2019 11:15 AM FLORICULTURIST Oxygen Saturation 98% 03/30/2020 1:16 PM FLORICULTURIST Inhaled Oxygen Concentration - - Weight 90.2 kg (198 lb 13.7 oz) 03/30/2020 1:16 PM FLORICULTURIST Height 164.4 cm (5' 4.72) 03/30/2020 1:16 PM FLORICULTURIST Body Mass Index 33.37 03/30/2020 1:16 PM FLORICULTURIST Plan of Treatment Health Maintenance Due Date [...] e / Group Dates MEDICARE MEDICARE A [id number] 2004-Prese [address] [place] [address] [facility] [id number] 2021-Prese [phone] [address] Medicaid HMO nt 25 [place] [address] Advance Directives For more information, please contact: [phone] Latest Code Status on File Code Status Date Activated Date Inactivated Comments Full Code 04/19/2019 9:35 AM 04/21/2019 1:37 PM Question Answer Comments Full Code: Not Discussed Due to: Patient not available Code Status History Code Status Date Activated Date Inactivated Comments Full Code 07/06/2018 8:47 AM 04/19/2019 7:46 AM Question Answer Comments Full Code: Discussed Full Code 06/29/2018 6:17 PM 07/06/2018 8:47 AM Question Answer Comments Full Code: Not Discussed Due to: Patient not available Care Teams Busser Relationship Specialty Start Date End Date Elsewhere, Pcp PCP - General Internal Medicine 07/27/18
--- OUTSIDE RECORDS SUMMARY | 2022-01-08 16:36 | XMS_ITS | Encounter Summary ---
:1955 Author Organization [facility] Address [address] [place] [address] Care Team Providers Name Role Phone Elsewhere, Pcp Primary Care Provider Unavailable Reason for Visit Outpatient (Routine) - Closed Specialty Diagnoses / Procedures Referred By Contact Refer red To Contact Diagnoses Other Polyuria Kristen Watts M.D. [facility] Procedures URO Uroflow [address] [place] [address] Referral ID Status Reason Start Date Expiration Date Visits Requ ested Visits Authorized [id number] Closed 02/06/2021 02/06/2022 1 1 Encounter Details Date Type Department Care Team Description 05/03/2021 Procedure visit Department of Kristen Watts M.D. Other Polyuria; Urology in Batsheva Harris, L.P.N. Feeling Of Incomplete Bladder Emptying; [place], [place] Eusebio Tran M.D. [address] [place] [phone] Frequency Urinary [address] [place] [phone] Social History Tobacco Use Types Packs/Day [...] do you attend anglican or Never 2018 yarsanism services? Do you [...] 0 to 10 pain scale post procedure. 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 GENCY RESPONSE OFFICER documented in this encounter Plan of Treatment Not on filedocumented as of this encounter Procedures Procedure Name Priority Date/Time Associated Diagnosis Comme nts URO UROFLOW Routine 05/03/2021 10:45 AM Other Polyuria Result s for this EMERGENCY RESPONSE OFFICER procedure are i n the results section . documented in this encounter Results URO Uroflow (05/03/2021 10:45 AM EMERGENCY RESPONSE OFFICER) Narrative Eusebio Tran M.D. - 05/03/2021 10: 45 AM Eusebio Singh M.D. ? 05/07/2021 ??9:36 AM REASON FOR [...] documented as of this encounter Care Teams Fruit And Vegetable Parer Relationship Specialty Start Date End Date Elsewhere, Pcp PCP - General Internal Medicine 07/27/18 documented as of this encounter
--- OUTSIDE RECORDS SUMMARY | 2022-01-08 16:36 | XMS_ITS | Encounter Summary ---
:1955 Author Organization [facility] Address [address] [place] [address] Care Team Providers Name Role Phone Elsewhere, Pcp Primary Care Provider Unavailable Encounter Details Date Type Department Care Team Description 05/09/2021 Orders Only Department of [place] Lab Exam (Primary Dx); Radiology, Gayla Leon R.N. Contact With And (Suspected) Exposure To [address] in [phone] [place], [place] (Work) [address] [place] [phone] Social History Tobacco Use Types Packs/Day Years [...] do you attend hinduism or Never 2018 religion services? Do you [...] documented as of this encounter Care Teams Construction Project Mgr Relationship Specialty Start Date End Date Elsewhere, Pcp PCP - General Internal Medicine 07/27/18 documented as of this encounter
--- OUTSIDE RECORDS SUMMARY | 2022-01-08 16:36 | XMS_ITS | Encounter Summary ---
:1955 Author Organization [facility] Address [address] [place] [address] Care Team Providers Name Role Phone Elsewhere, Pcp Primary Care Provider Unavailable Reason for Visit MRI/CAT/PET Scan (Routine) - Authorized Specialty Diagnoses / Procedures Referred By Contact Refer red To Contact Radiology Diagnoses Mass Kidney Arun Waterman M.D. [facility] Procedures CT Abdomen Ablation [address] [place] [address] Referral ID Status Reason Start Date Expiration Date Visits V isits Requested Authorized [id number] Authorized 05/08/2021 05/08/2022 1 1 Encounter Details Date Type Department Care Team Description 06/26/2021 Hospital Encounter Department of Arun Waterman M.D. [address] [place] [phone] Canceled (Patient: Radiology, Wily Dale M.D. [address] [place] [phone] Request) [facility] in [place], [place] [address] [place] [address] Social History Tobacco Use Types Packs/Day Years [...] do you attend yarsanism or Never 2018 adventism services? Do you [...] as of this encounter Care Teams Restaurant Assistant Manager Relationship Specialty Start Date End Date Elsewhere, Pcp PCP - General Internal Medicine 07/27/18 documented as of this encounter
--- OUTSIDE RECORDS SUMMARY | 2022-01-08 16:36 | XMS_ITS | Encounter Summary ---
:1955 Author Organization [facility] Address [address] [place] [address] Care Team Providers Name Role Phone Elsewhere, Pcp Primary Care Provider Unavailable Reason for Visit Outpatient (Routine) - Closed Specialty Diagnoses / Procedures Referred By Contact Refer red To Contact Urology Brian Mathias M.D . [facility] 200 [place] [address] Referral ID Status Reason Start Date Expiration Date Visits Requ ested Visits Authorized [id number] Closed 05/04/2020 05/04/2021 1 1 Encounter Details Date Type Department Care Team Description 05/03/2021 Office Visit Department of Urology Ally Bar Ma ss Kidney (Primary in Krista, Bess Dx) [place] 1400 [facility] [address] [place] [phone] Social History Tobacco Use Types Packs/Day Years [...] do you attend mandaeism or Never 2018 samaritan services? Do you belong to any clubs or No 02/26/2019 organizations such as mandaeism groups, unions, [employer] or athletic groups, or school groups? How [...] by: Sheryl Bar M.D. 05/03/2021 11:48 AM TILER'S ASSISTANT R'S ASSISTANT documented in this encounter Plan of Treatment Not on filedocumented as of this encounter Visit Diagnoses Diagnosis Mass Kidney - Primary documented in this encounter Additional Health Concerns Assessment Noted Time PHQ-9 Depression Total Score: 11 05/04/2013 4:05 PM CS T documented as of this encounter Care Teams Oyster Floater Relationship Specialty Start Date End Date Elsewhere, Pcp PCP - General Internal Medicine 07/27/18 documented as of this encounter
--- OUTSIDE RECORDS SUMMARY | 2022-01-08 16:36 | XMS_ITS | Encounter Summary ---
:1955 Author Organization [facility] Address [address] [place] [address] Care Team Providers Name Role Phone Elsewhere, Pcp Primary Care Provider Unavailable Reason for Referral MRI/CAT/PET Scan (Routine) - Closed Specialty Diagnoses / Procedures Referred By Contact Refer red To Contact Radiology Diagnoses Mass Kidney Ally Bar M.D. [facility] Procedures CT Chest without IV Contrast [address] [place] [address] Referral ID Status Reason Start Date Expiration Date Visits Requ ested Visits Authorized [id number] Closed 05/03/2021 05/03/2022 1 1 CLERK Reason for Visit MRI/CAT/PET Scan (Routine) - Closed Specialty Diagnoses / Procedures Referred By Contact Refer red To Contact Radiology Diagnoses Mass Kidney Ally Bar M.D. [facility] Procedures CT Chest without IV Contrast [address] [place] [address] Referral ID Status Reason Start Date Expiration Date Visits Requ ested Visits Authorized [id number] Closed 05/03/2021 05/03/2022 1 1 Encounter Details Date Type Department Care Team Description 05/03/2021 Hospital Encounter Department of Carroll, Ally A, M.D. Mass Kidney Radiology, Gonda 1400 [facility], in [place], [place] [address] [place] [address] [place] [phone] Social History Tobacco Use Types [...] do you attend restorationism or Never 2018 islam services? Do you [...] for this IV CONTRAST (most inpatients PM FOOD CLERK procedure a re in and all the results outpatients) section. documented in this encounter Results CT Chest without IV Contrast (05/03/2021 1:35 PM FOOD CLERK) Anatomical Region Laterality Modality Chest, Thoracic RST LOS, Thoracic ARZ N/A Co mputed Tomography, Computed LOS, Thoracic FLA LOS Tomography Specimen (Source) Anatomical Collection Method Collection Time Re ceived Time Location / / Volume Laterality 05/03/2021 1:42 PM FOOD CLERK Impressions 05/03/2021 1:53 PM FOOD CLERK 1. Increased clustered nodularity with new dominant 11 x 7 mm nodule in the posterior basal left lower lobe, indeter minate but likely infectious/inflammatory rather than neop lastic. CT follow-up suggested in 3 months. 2. Stable 5 x 4 mm left upper lobe nodul e which has decreased since 08/18/2019. 3. Scattered additional tiny nodules are stable since 03/30/2020. Narrative 05/03/2021 1:53 PM FOOD CLERK EXAM: CT CHEST WITHOUT IV CONTRAST COMPARISON: [facility] CT chest 021. FINDINGS: The 5 x [...] WITHOUT IV CONTRAST COMPARISON: [facility] CT chest 021. FINDINGS: The 5 x [...] documented as of this encounter Care Teams Multiple Sclerosis Nurse Relationship Specialty Start Date End Date Elsewhere, Pcp PCP - General Internal Medicine 07/27/18 documented as of this encounter
--- OUTSIDE RECORDS SUMMARY | 2022-01-08 16:36 | XMS_ITS | Encounter Summary ---
:1955 Author Organization [facility] Address [address] [place] [address] Care Team Providers Name Role Phone Elsewhere, Pcp Primary Care Provider Unavailable Encounter Details Date Type Department Care Team Description 05/09/2021 Clinical Communication Department of [place] Radiology, Homar Leon R.N. [facility] [phone] [place] ([facility]) [address] [place] [phone] Social History Tobacco Use Types Packs/Day Years [...] do you attend buddhist or Never 2018 christian services? Do you [...] documented as of this encounter Care Teams Settlement Worker Relationship Specialty Start Date End Date Elsewhere, Pcp PCP - General Internal Medicine 5/6/19 documented as of this encounter
--- OUTSIDE RECORDS SUMMARY | 2022-01-08 16:36 | XMS_ITS | Clinical Summary ---
:1955 Author Organization [facility] [place] [address] Care Team Providers Name Role Phone Kandace Mckeon Primary Care Provider Parish Ruffin MD Unavailable Unavailable Kwaku Wild MD Unavailable Kari Hunt PhD, LP Unavailable [phone] Allergies Active Allergy Reactions Severity Noted Date [...] NIGHT 22 tabletIndications: AT BEDTIME Mixed hyperlipidemia amitriptyline TAKE 1 TABLET BY 90 Tablet [...] the range 2.5-3.5 evening OR as directed acetaminophen TAKE 2 TABLETS 60 Tablet 5 01/09/20 A ctive (TYLENOL) 325 mg EVERY 4-6 HOURS 22 tabletIndications: NEEDED FOR 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 acetaminophen Take 2 tablets 90 Tablet 1 07/07/19 D iscontinued (TYLENOL) 325 mg every 4-6 hours 022 tabletIndications: as needed for 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 warfarin (COUMADIN) Take by mouth 6 60 Tablet 0 11/22/1911/23/ Discontinued 2 mg mg (2 mg x 3) (Reord er tabletIndications: every Sun, Wed, (E-cancel [...] Take by mouth 6 20 Tablet 0 12/21/1908/23 Discontinued 2 mg mg (2 mg x [...] Team Description 01/08/2022 Orders Only Lab, [facility] 01/08/2022 Nurse Triage DetertKandace Chest Pain Venus, DO 01/08/2022 Travel 01/07/2022 Refill DetertKandace Refill Reques t Venus, DO (Acetaminophen) 12/27/2021 Orders Only Scanner <No scans attac hed> 12/27/2021 Anticoagulation 1, [facility] (warfarin) [facility] 12/26/2021 Orders Only Lab, [facility] 12/26/2021 Office Visit Kari Hunt Individual Therapy; [facility]26[facility]21 Travel 12/20/2021 Anticoagulation 1, [facility] [...] 11/30/2021 Refill Detert, Kandace Refill Reques t Venus DO (Rizatriptan) 11/21/2021 Office Visit Kari Hunt Individual Kimberly Chaparro, PhD, LP 11/21/2021 Anticoagulation 1, [facility] In[facility] Anticoagulat ion (warfarin) Clinic 11/20/2021 Orders Only Lab, [facility] 11/20/2021 Travel 11/14/2021 Office Visit Kari Hunt Individual Kimberly Chaparro, PhD, LP 11/14/2021 Anticoagulation 1, [facility] In[facility] Anticoagulat ion (warfarin) Clinic 11/13/2021 Orders Only Lab, [facility] 11/13/2021 Ancillary Procedure 11/13/2021 Telephone DetertKandace Results (INR) Venus, DO 11/13/2021 Travel 11/07/2021 Anticoagulation 1, [facility] In[facility] Anticoagulat ion (DETENTION) (warfarin) Clinic 11/06/2021 Orders Only Lab, [facility] Anticoagulation 11/06/2021 Travel 10/31/2021 Anticoagulation 1, [facility] In[facility] Anticoagulat ion (warfarin) Clinic 10/30/2021 Orders Only Lab, [facility] Lab 10/29/2021 Office Visit Kari Hunt, PhD, LP 10/29/2021 Travel 10/18/2021 Refill Detert, Kandace Refill Reques t Venus DO (Antifungal (Clotrimazole), Ventolin Hfa) 10/17/2021 Office Visit DeterKandace cerna Memory Loss; Vensu, DO Palpitations; M edication Management (met oprolol is taking 50 mg twice a day) 10/17/2021 Travel 10/10/2021 Anticoagulation 1, [facility] (warfarin) Clinic (Lab/DETENTION) 10/09/2021 Orders Only Lab, [facility] 10/09/2021 Travel 10/08/2021 Refill Detert, Kandace Refill Reques t (METOPROL Venus, DO SUC TAB 100MG E R) from Last 3 Months Immunizations Name Administration Dates Next Due AMB Influenza, IIV4 PF (=>6 mos 12/23/2019 Flulaval,Fluzone Fluarix)(Flu Clinic Only) COVID-19 vaccine (Moderna 05/04/2020, 04/06/2020 100mcg/0.5mL) PF, MDV COVID-19 vaccine ([employer] 01/19/2021 30mcg/0.3mL) PF, MDV Influenza RIV4 (Age [...] in contact with No / Unsu re 01/08/2022 2:29 PM CDT someone who was confirmed or suspected [...] Encounters Date Type Specialty Care Team Description 01/14/2022 Office Visit Kandace Mckeon ea, DO [address] [place], [place] [address] (Wo rk) 01/16/2022 Office Visit Kari Hunt, PhD, [address] [facility] [address] [place], [place] [address] [phone] (Wo rk) 01/23/2022 Office Visit Kari Hunt, PhD, [address] [facility] [address] [place] [address] [phone] (Wo rk) 02/06/2022 Office Visit Kari Hunt, PhD, [address] [place], [place] [address] (Wo rk) 02/13/2022 Office Visit Kari Hunt, PhD, [address] [facility] [address] [place] [address] (Wo rk) 04/04/2022 Office Visit Raulito Bruce, PhD, [address] [address] (Wo rk) 06/12/2022 Office Visit Kandace Mckeon ea, DO [address] [facility] [address] [place], [place] [address] (Wo rk) Health Maintenance [...] Yes Terence, providers by Reny Miranda, 06/21/17 PROCESS ENGINEERING INTERN Note: Formatting of this note might be d ifferent from the original. - appointment with dental provider by - appointment for DM eye exam and new ey eglasses by 06/21/17 Healthcare Directive General Yes Kam hay, Reny Miranda, PROCESS ENGINEERING INTERN Note: Formatting of this note might be [...] athologist Signature INR 3.1 (H) <1.3 12/26/2021 [facility] 8:26 PM CDT LABORATORY-[facility] PROTIME 30.2 (H) 12.0 - 13.8 12/26/2021 [facility] sec 8:26 PM CDT LABORATORY-[facility] LABOR[facility] Specimen Anatomical Collection Method / Collection Time Recei dominguez Time (Source) Location / Volume Laterality Blood BLOOD SPECIMEN / Venipuncture / 12/26/2021 1:38 2021 1:38 Unknown Unknown PM CDT PM CDT Narrative [facility] LABORATORY-CENTRAL LABORAT OR - 12/26/2021 8:26 PM CDT ?Therapeutic Range [...] Organization Address City/State/ZIP Code Phon e Number [facility] [address] [facility] [place] [address] LABORATORY-CENTRAL 1999 LABORATORY (ABNORMAL) URINE ALBUMIN TO CREATININE RATIO, RANDOM (12/19/2021 1:43 PM CDT) Patholo gist Method Time Signature ALB RAND URINE 69.6 mg/L 12/20/2021 [facility] 6:57 AM CDT LABORATORY-[facility] TRAL LABORATORY CREATININE,URIN 0.65 g/L 12/20/2021 [facility] Personal E 6:57 AM CDT LABORATORY-[facility]ORATORY ALBUMIN TO 107.1 (H) <30.0 12/20/2021 [facility] CREATININE mg/g 6:57 AM CDT LABORATORY-[facility] RATIO,RAND UR creat TRAL LABORATORY Specimen Anatomical Collection Method Collection Time Receive d Time (Source) Location / / Volume Laterality Urine URINE SPECIMEN / Non-Blood / 12/19/2021 1:43 PM 12/19 1:43 Unknown Unknown CDT PM CDT Narrative [facility] LABORATORY-CENTRAL LABORAT ORY - 12/20/2021 6:57 [...] Organization Address City/State/ZIP Code Phon e Number [facility] [address] [place] [address] LABORATORY-CENTRAL 1999 LABORATORY (ABNORMAL) HEMOGLOBIN A1C MONITORING (POCT) (12/12/2021 2:19 PM CDT) Analysis Performed At Path logist Time Signature HEMOGLOBIN A1C 6.5 (H) <=6.4 % 12/12/2021 [facility] MONITORING 2:32 PM CDT [facility] (POCT) CLINIC Specimen Anatomical Collection Method / Collection Time Recei dominguez Time (Source) Location / Volume Laterality Blood BLOOD SPECIMEN / Venipuncture / 12/12/2021 2:19 2021 2:23 Unknown Unknown PM CDT PM CDT Narrative [facility] - 2021 2:32 PM [...] Organization Address City/State/ZIP Code Phon e Number [facility] [address] [place] [address] (ABNORMAL) BASIC METABOLIC PANEL (12/12/2021 2:19 PM CDT) Analysis Performed At Patho logist Time Signature SODIUM 139 135 - 145 12/13/2021 [facility] mmol/L 2:26 PM [facility] LABORATORY POTASSIUM 3.9 3.5 - 5.0 12/13/2021 [facility] mmol/L 2:26 PM [facility] LABORATORY CHLORIDE 103 98 - 110 12/13/2021 [facility] mmol/L 2:26 PM [facility] LABORATORY CO2,TOTAL 27 21 - 31 12/13/2021 [facility] mmol/L 2:26 PM [facility] LABORATORY ANION GAP 9 5 - 18 12/13/2021 [facility] 2:26 PM [facility] LABORATORY GLUCOSE 205 (H) 65 - 100 12/13/2021 [facility] mg/dL 2:26 PM [facility] LABORATORY CALCIUM 9.1 8.5 - 10.5 12/13/2021 [facility] mg/dL 2:26 PM [facility] LABORATORY BUN 10 8 - 25 12/13/2021 [facility] mg/dL 2:26 PM [facility] LABORATORY CREATININE 0.99 0.57 - 12/13/2021 [facility] 1.11 mg/dL 2:26 PM [facility] LABORATORY BUN/CREAT RATIO 10 10 - 20 12/13/2021 [facility] HOSPITA L 2:26 PM [facility] LABORATORY eGFR 64 (L) >90 12/13/2021 [facility] mL/min/1.7 2:26 PM [facility] 3m2 LABORATORY Comment: As of 2021, [...] Organization Address City/State/ZIP Code Phon e Number [facility] INTERNAL ZIP [address] [place] [address] INTERIOR LABORATORY [address] SCAN-EYE EXAM (12/06/2021 [...] provider. If you have questions, please contact [facility] care provider. XR MAMMO CRYSTAL BILAT SCREEN [[id number]] CLINICAL HISTORY: ??This is an asymptoma tic 66 y.o. patient. INDICATION FOR EXAM: Mammogram Screening . TECHNIQUE: CC & MLO views were obtained. ??This study was evaluated with the assistance of Computer-Aided Detecti on. Breast Tomosynthesis was used in interpretation. COMPARISON FILM: Yes 10/19/20 [facility] 12/27/16 [facility] FINDINGS: ??The breasts have scattered a reas of fibroglandular density. There are no dominant masses, suspicious micro calcifications or areas of architectural distortion. Kandace Mckeon DO MAMMO from Last 3 Months Insurance Payer Benefit Plan / Subscriber ID Effective Dates Phone Addre ss Type Group MEDICARE PART B MEDICARE PART [id number] 2004-Presen ATTN: CLAIMS - HB USE ONLY B HB ONLY t [address] [place] [address] MEDICARE PPS HC MEDICARE [id number] 2004-Presen PO JASE X 2019 [address] [place] [address] MEDICARE - PB MEDICARE PB [id number] 2004-Presen ATTN : CLAIMS USE ONLY ONLY t [address] [place] [address] [facility] [id number] 2021-Presen [address] [place] [address] Juni Metcalf Personal/Family Self 1955 [place] (Home) [address] [place] [address] Care Teams Polishing Machine Tender Relationship Specialty Start Date End Date Kandace Mckeon DO PCP - General 12/25/09 [address] [place] [address] Parish Ruffin MD Pulmonology Pulmonary Medicine 12/04/11 Kwaku Wild MD Physical Medicine and 10/07/[address] [place] [address] Kari Hunt, Psychologist Psychology 12/10/16 PhD, LP [address] [place] [address]
--- OUTSIDE RECORDS SUMMARY | 2022-01-08 16:36 | XMS_ITS | Encounter Summary ---
:1955 Author Organization [facility] Address [address] [place] [address] Care Team Providers Name Role Phone Elsewhere, Pcp Primary Care Provider Unavailable Reason for Visit Outpatient (Routine) - Closed Specialty Diagnoses / Procedures Referred By Contact Refer red To Contact Radiology Diagnoses [facility]ney Ally Bar M.D. [address] [address] Referral ID Status Reason Start Date Expiration Date Visits Requ ested Visits Authorized [id number] Closed 05/03/2021 05/03/2022 1 1 Encounter Details Date Type Department Care Team Description 05/09/2021 Virtual Visit Department of Ally Bar M.D. [address] [place] [phone] [facility] Kidney (Primary Dx); Radiology, Cristy Sands APRN, C.N.P., M.S.N. [address] [place] [phone] Atrial Fibrillation Paroxysmal (HCC); [facility], in Unsteadin ess Gait Disorder Non Orthopedic; [place], [place] Anticoagulant Therapy [address] [place] [address] Social History Tobacco Use Types [...] you attend latter day or Never 2018 yazdanism services? Do you [...] Procedure: ABLATION - PVI; Surgeon: Marla Yeager M.B.B.SEdilma; Location: [facility] ??? CATH ABLATION [...] page the Ablation Radiology nurse pager at [phone] Friday through Friday 7 a.m. to 5 p.m. or contact the note author. We spent over half of a total 30 minutes with the patient in counseling and discussion and/or coordination of care as described above. MAKER documented in this encounter Plan of Treatment Not on filedocumented as of this encounter Visit Diagnoses Diagnosis Mass Kidney - Primary Atrial Fibrillation Paroxysmal (HCC) Unsteadiness Gait Disorder Non Orthopedi c Anticoagulant Therapy documented in this encounter Additional Health Concerns Assessment Noted Time PHQ-9 Depression Total Score: 11 05/04/2013 4:05 PM CS T documented as of this encounter Care Teams Construction Job Cost Estimator Relationship Specialty Start Date End Date Elsewhere, Pcp PCP - General Internal Medicine 07/27/18 documented as of this encounter
--- OUTSIDE RECORDS SUMMARY | 2022-01-08 16:36 | XMS_ITS | Encounter Summary ---
:1955 Author Organization [facility] Address [address] [place] [address] Care Team Providers Name Role Phone Elsewhere, Pcp Primary Care Provider Unavailable Reason for Referral MRI/CAT/PET Scan (Routine) - Closed Specialty Diagnoses / Procedures Referred By Contact Refer red To Contact Radiology Diagnoses [facility] Kidney Ally Bar M.D. [facility] Procedures CT Chest without IV Contrast [address] [place] [address] Referral ID Status Reason Start Date Expiration Date Visits Requ ested Visits Authorized [id number] Closed 05/03/2021 05/03/2022 1 1 ON OPENER Outpatient (Routine) - Closed Specialty Diagnoses / Procedures Referred By Contact Refer red To Contact Radiology Diagnoses [facility] Kidney Ally Bar M.D. [facility] [address] [place] [address] Referral ID Status Reason Start Date Expiration Date Visits Requ ested Visits Authorized [id number] Closed 05/03/2021 05/03/2022 1 1 ON OPENER Encounter Details Date Type Department Care Team Description 05/03/2021 Orders Only Department of Urology Ally Bar Ma ss Kidney (Primary in Krista, Bess Dx) [place] [address] [facility] [place] [phone] Social History Tobacco Use Types Packs/Day Years [...] do you attend rastafari or Never 2018 rastafarian services? Do you [...] Chest without IV Contrast (05/03/2021 1:35 PM COTTON OPENER) Anatomical Region Laterality Modality Chest, Thoracic RST LOS, Thoracic ARZ N/A Co mputed Tomography, Computed LOS, Thoracic FLA LOS Tomography Specimen (Source) Anatomical Collection Method Collection Time Re ceived Time Location / / Volume Laterality 05/03/2021 1:42 PM COTTON OPENER Impressions 05/03/2021 1:53 PM COTTON OPENER 1. Increased clustered nodularity with new dominant 11 x 7 mm nodule in the posterior basal left lower lobe, indeter minate but likely infectious/inflammatory rather than neop lastic. CT follow-up suggested in 3 months. 2. Stable 5 x 4 mm left upper lobe nodul e which has decreased since 08/18/2019. 3. Scattered additional tiny nodules are stable since 03/30/2020. Narrative 05/03/2021 1:53 PM COTTON OPENER EXAM: CT CHEST WITHOUT IV CONTRAST COMPARISON: [facility] CT chest 01/07/2 021. FINDINGS: The [...] EXAM: CT CHEST WITHOUT IV CONTRAST COMPARISON: [facility] CT chest . FINDINGS: The 5 [...] documented as of this encounter Care Teams Measurement Superintendent Relationship Specialty Start Date End Date Elsewhere, Pcp PCP - General Internal Medicine 07/27/18 documented as of this encounter
--- OUTSIDE RECORDS SUMMARY | 2022-01-08 16:36 | XMS_ITS | Encounter Summary ---
:1955 Author Organization [facility] Address [address] [place] [address] Care Team Providers Name Role Phone Elsewhere, Pcp Primary Care Provider Unavailable Reason for Referral Outpatient (Routine) - Authorized Specialty Diagnoses / Procedures Referred By Contact Refer red To Contact Diagnoses Arun Lee M.D. [facility] Procedures US Assisted Guidance [address] [place] [address] Referral ID Status Reason Start Date Expiration Date Visits V isits Requested Authorized [id number] Authorized 05/08/2021 05/08/2022 1 1 RI/CAT/PET Scan (Routine) - Authorized Specialty Diagnoses / Procedures Referred By Contact Refer red To Contact Radiology Diagnoses Arun Lee M.D. [facility] Procedures CT Abdomen Ablation [address] [place] [address] Referral ID Status Reason Start Date Expiration Date Visits V isits Requested Authorized [id number] Authorized 05/08/2021 05/08/2022 1 1 utpatient (Routine) - Authorized Specialty Diagnoses / Procedures Referred By Contact Refer red To Contact Diagnoses Arun Lee M.D. [facility] Procedures US Kidney Left [address] [place], [place] [address] Referral ID Status Reason Start Date Expiration Date Visits V isits Requested Authorized [id number] Authorized 05/08/2021 05/08/2022 1 1 utpatient (Routine) - Authorized Specialty Diagnoses / Procedures Referred By Contact Refer red To Contact Vascular Medicine Diagnoses Dane Kidney Arun Waterman M.D. [facility] [address] [place], [place] [address] Referral ID Status Reason Start Date Expiration Date Visits V isits Requested Authorized [id number] Authorized 05/08/2021 05/08/2022 1 1 utpatient (Routine) - Authorized Specialty Diagnoses / Procedures Referred By Contact Refer red To Contact Anesthesiology Diagnoses aDne Kidney Arun Waterman M.D. [facility] [address] [place], [place] [address] Referral ID Status Reason Start Date Expiration Date Visits V isits Requested Authorized [id number] Authorized 05/08/2021 05/08/2022 1 1 MORTISER OPERATOR Encounter Details Date Type Department Care Team Description 05/08/2021 Orders Only Department of So Ca Dane Kidney (Primary Radiology, Moise MortonNEdilma Sánchez) [facility], in [facility] [phone] [place] (Work) [address] [place] [phone] Social History Tobacco Use Types Packs/Day [...] do you attend scientologist or Never 2018 christianity services? Do you [...] documented as of this encounter Care Teams Informaticist Relationship Specialty Start Date End Date Elsewhere, Pcp PCP - General Internal Medicine 07/27/18 documented as of this encounter
--- OUTSIDE RECORDS SUMMARY | 2022-01-08 16:36 | XMS_ITS | Encounter Summary ---
:1955 Author Organization [facility] Address [address] [place] [address] Care Team Providers Name Role Phone Elsewhere, Pcp Primary Care Provider Unavailable Reason for Visit Reason Comments Pre-Ablation Encounter Details Date Type Department Care Team Description 05/03/2021 Clinical Communication Department of So Ca e-Ablation Radiology, Homar Leon R.N. [place], in [phone] [place], [place] (Work) [address] [place] [phone] Social History Tobacco Use Types Packs/Day [...] do you attend druze or Never 2018 faith services? Do you [...] ablation: Yes Reviewed by: Alen Gan M.D. SIVE PRIMER documented in this encounter Plan of Treatment Not on filedocumented as of this encounter Visit Diagnoses Not on filedocumented in this encounter Additional Health Concerns Assessment Noted Time PHQ-9 Depression Total Score: 11 05/04/2013 4:05 PM CS T documented as of this encounter Care Teams Porcelain Enamel Installer Relationship Specialty Start Date End Date Elsewhere, Pcp PCP - General Internal Medicine 07/27/18 documented as of this encounter
--- OUTSIDE RECORDS SUMMARY | 2022-01-08 16:36 | XMS_ITS | Encounter Summary ---
:[address] [facility] Address [address] [place] [address] Care Team Providers Name Role Phone Elsewhere, Pcp Primary Care Provider Unavailable Encounter Details Date Type Department Care Team Description 05/08/2021 Documentation Preoperative Evaluation Cristy Navarro, [place] in [place], [place], C.N.P ., M.S.N. [place] [address] [address] [facility] [address] [place] [phone] (Wo rk) Social History Tobacco Use Types [...] do you attend restorationism or Never 2018 congregational services? Do you [...] The patient was not seen in [facility]. RIAL DISTRIBUTOR documented in this encounter Plan of Treatment Not on filedocumented as of this encounter Visit Diagnoses Not on filedocumented in this encounter Additional Health Concerns Assessment Noted Time PHQ-9 Depression Total Score: 11 05/04/2013 4:05 PM CS T documented as of this encounter Care Teams Rn Advanced Relationship Specialty Start Date End Date Elsewhere, Pcp PCP - General Internal Medicine 07/27/18 documented as of this encounter
--- NOTE | 2022-01-08 16:37 | ED_ITS ---
HPI - General Adult General Time Seen by Provider: 16:38 Date Seen: 01/08/22 Chief complaint: Chest Pain Stated complaint: Chest pain Time Seen by Provider: 01/08/22 16:14 Source: patient and RN notes reviewed Limitations: no limitations History of Present Illness HPI narrative: This 66-year-old female comes in with concern of burning substernal chest pain that goes up and down her chest for 2 weeks. It has been intermittent but it awoke her today around 930-10 a.m.. It has been present all day. It is not as bad her sharp preserve was earlier. She did get 4 Tums from the nursing staff earlier. Perhaps it helped. It definitely has been there all day however. She is wondering if it does could be heartburn. She has had a cardiac history where she had a valve repair. She states she has had arrhythmia issues. She is on chronic anticoagulation. INR which is therapeutic on December 25 I believe. No abdominal pain, no nausea or vomiting, does not notice any change with food with this. She has been no fevers or chills. She states she has bowel movement about 1/2 hour to an hour after each meal. This is not new. She has had her gallbladder out. She thinks her appendix is out. She thinks she has had something else out that but does not remember what it was. No respiratory symptoms with this. She has felt the pain into her back a bit with this burning sensation. Related Data Home Medications Medication Instructions Recorded Confirmed acetaminophen 325 mg tablet 650 mg PO Q6H PRN pain 12/27/21 01/08/22 albuterol sulfate 90 mcg/actuation 2 puff inhalation Q4H PRN 12/27/21 01/08/22 aerosol inhaler (Ventolin HFA) amitriptyline 50 mg tablet 50 mg PO HS 12/27/21 01/08/22 amlodipine 10 mg tablet 10 mg PO HS 12/27/21 01/08/22 antacid See Rx Instructions PO DAILY PRN 12/27/21 01/08/22 budesonide 0.5 mg/2 mL suspension 0.5 mg inhalation BID 12/27/21 01/08/22 for nebulization diphenhydramine HCl 25 mg capsule 25 mg PO Q8H PRN allergic symptoms 12/27/21 12/27/21 (Banophen) glipizide 5 mg tablet 5 mg PO DAILY 12/27/21 01/08/22 hydroxyzine HCl 25 mg tablet 25 mg PO HS PRN anxiety 12/27/21 01/08/22 levothyroxine 25 mcg tablet 25 mcg PO DAILY 12/27/21 01/08/22 metoprolol succinate 50 mg 50 mg PO DAILY 12/27/21 01/08/22 tablet,extended release 24 hr nitroglycerin 0.4 mg sublingual 0.4 mg sublingual Q5M PRN 12/27/21 01/08/22 tablet polyethylene glycol 3350 17 17 g PO DAILY PRN 12/27/21 01/08/22 gram/dose oral powder rizatriptan 5 mg tablet 5 mg PO DAILY PRN 12/27/21 01/08/22 sennosides 8.6 mg tablet (senna) 8.6 mg PO BID PRN 12/27/21 01/08/22 simvastatin 20 mg tablet 20 mg PO HS 12/27/21 01/08/22 warfarin 2 mg tablet mg 12/27/21 warfarin 4 mg tablet mg 12/27/21 naproxen sodium 220 mg tablet (All 220 mg PO .once weekly PRN 01/08/22 01/08/22 Day Pain Relief) Previous Rx's Medication Instructions Recorded omeprazole 40 mg capsule,delayed 40 mg PO DAILY #14 caps 01/08/22 release Allergies Allergy/AdvReac Type Severity Reaction Status Date / Time No Known Drug Allergies Allergy Verified 01/08/22 16:12 Review of Systems Status of ROS: Reports: 10 or more systems reviewed and unremarkable except as noted in History and below PFSH [facility] Social History Smoking Status: Never smoker Do you use any of these nicotine containing products: None Second hand tobacco smoke exposure: No How often do you have a drink containing alcohol: never How often do you have six or more drinks on one occasion: Never AUDIT-C Alcohol total score: 0 Non-prescribed substance use: denies use service: No Exam Const: Vital Signs, click to edit/add: Vital Signs - 24 hr 01/08/22 16:12 01/08/22 16:15 01/08/22 16:30 Temperature 98.5 F Pulse Rate [Pulse Oximeter] 74 75 Respiratory Rate 18 18 Blood Pressure [Le ft Upper Arm] 152/90 H 144/84 H Pulse Oximetry 99 99 97 Oxygen Delivery Me thod Room Air Room Air 01/08/22 17:00 01/08/22 17:30 Temperature Pulse Rate [Pulse Oximeter] 74 74 Respiratory Rate 18 18 Blood Pressure [Le ft Upper Arm] 141/80 H 137/81 Pulse Oximetry 98 74 L Oxygen Delivery Me thod Room Air Room Air Documenting provider has reviewed patient's vital signs: yes Common normals: no apparent distress, oriented x3, no limitations, healthy appearing, alert and well nourished General appearance: cooperative, comfortable and well kempt Nutritional appearance: overweight HENMT: Common normals: normocephalic, head/scalp atraumatic, hearing grossly normal bilaterally, external ears normal, EAC's normal, external nose normal, nasal mucous membranes and turbinates normal, moist oral mucous membranes, oropharynx normal, dentition normal and gingiva normal Head and scalp: normocephalic and atraumatic Nose: external nose normal and nasal mucous membranes and turbinates normal External ear: external ears normal External auditory canal: EAC's normal Eye: Common normals: PERRL, EOMs intact bilaterally, conjunctivae normal and no scleral icterus Conjunctiva: conjunctiva(e) normal Pupil: PERRL Neck & C-Spine: Common normals: full ROM, no lymphadenopathy, supple, no meningeal signs, no JVD and thyroid normal Thyroid: thyroid normal Chest: Common normals: inspection of chest normal and palpation of chest normal Resp: Common normals: normal respiratory effort, no retractions, no use of accessory muscles and clear to auscultation bilaterally Auscultation: clear to auscultation bilaterally Cardio: Common normals: no JVD, regular rate, regular rhythm, S1 normal heart sound, S2 normal heart sound, no gallops, no clicks and no murmurs Rate: regular rate Rhythm: regular rhythm Heart sounds: S1 normal and S2 normal GI: Common normals: Normal to inspection, nondistended, normoactive bowel sounds present, soft to palpation, non-tender, no hepatosplenomegaly and no masses Palpation: soft and no hepatosplenomegaly Extremity: Common normals: normal to inspection, full ROM, normal capillary refill, no joint enlargement, no clubbing, cyanosis or edema, no calf tenderness and no pedal edema Neuro: Common normals: oriented x3 Sensorium/orientation: alert Meningeal signs: no meningeal signs Psych: Appearance: well kempt Course Course Hospital Course: We will have her on cardiac monitoring, pulse oximetry, obtain full complement of labs and EKG. Obtain a portable chest x-ray. We will be getting D-dimer and consideration of thromboembolic disease, dissection. Solitary troponin should be sufficient as she has had this all day. GI symptomatology with consideration of GERD comes to mind. She is not on a proton pump inhibitor. Respiratory musculoskeletal etiologies consider but think these to be much less likely. Reevaluation(s) Reevaluation #1: Lab initially reported her D-dimer to be 47,000. Confirmation with lab reveals that this was an error in entry. Her D-dimer is less than 0.27. In review of her records, she was in on December 27 which tearing chest pain. D-dimer and cardiac workup at that time were negative. Everything remains normal/negative today. We will initiate her on omeprazole 40 mg daily, will give 1st dose here tonight. She needs follow up in clinic which she states she has an appointment next week. Patient was given a GI cocktail here and did not really feel that it helped much. Time: 18:13 Vital Signs Vital signs: Initial Vital Signs Temperature 98.5 F 01/08/22 16:12 Temperature Source Temporal Artery Scan 01/08/22 16:12 Pulse Rate 74 01/08/22 16:12 Respiratory Rate 18 01/08/22 16:12 Blood Pressure 152/90 H 01/08/22 16:12 Blood Pressure Mean 110 01/08/22 16:12 Blood Pressure Position Supine 01/08/22 16:12 Pulse Oximetry 99 01/08/22 16:12 Oxygen Delivery Method 01/08/22 16:12 Vital Signs Temperature 98.5 F 01/08/22 16:12 Pulse Rate 74 01/08/22 16:12 Respiratory Rate 18 01/08/22 16:12 Blood Pressure 152/90 H 01/08/22 16:12 Pulse Oximetry 99 01/08/22 16:12 Oxygen Delivery Method 01/08/22 16:12 Temperature 98.5 F 01/08/22 16:12 Pulse Rate 74 01/08/22 17:30 Respiratory Rate 18 01/08/22 17:30 Blood Pressure 137/81 01/08/22 17:30 Pulse Oximetry 74 L 01/08/22 17:30 Oxygen Delivery Method 01/08/22 17:30 Medical Decision Making Lab Data Lab results reviewed: Yes I reviewed the patient's lab results Labs: Lab Results 01/08/22 01/08/22 01/08/22 Range/Units 17:00 17:00 17:00 WBC 8.14 (4.50-11.00) K/uL RBC 4.50 (4.00-5.20) m/uL Hgb 12.6 (12.0-16.0) gm/dL Hct 39.1 (33.0-51.0) % MCV 87 (80-100) fL MCH 28 (26-34) pg MCHC 32 (32-36) gm/dL RDW Coeff of Anamika 13.2 (11.5-15.5) % Plt Count 478 H (140-440) K/uL Neut % (Auto) 54.1 (42.0-72.0) % Lymph % (Auto) 31.8 (20-44) % Hendry % (Auto) 8.4 (0.0-11.0) % Eos % (Auto) 4.2 (0.0-7.0) % Baso % (Auto) 1.4 (0.0-3.0) % Neut # (Auto) 4.41 (1.7-7.0) K/uL Lymph # (Auto) 2.59 (0.90-2.90) K/uL Hendry # (Auto) 0.70 (0.00-0.90) K/UL Eos # (Auto) 0.34 (0.00-0.50) K/uL Baso # (Auto) 0.11 (0.00-0.30) K/uL Abs Immat Gran (auto) 0.01 (0.00-0.30) K/uL D-Dimer Quant (PE/DVT) < 0.27 (0.00-0.50) ug/ml Sodium 138 (135-149) mmol/L Potassium 3.8 (3.6-5.1) mmol/L Chloride 100 (96-114) mmol/L Carbon Dioxide 29 (20-32) mmol/L BUN 13 (7-30) mg/dL Creatinine 0.9 (0.5-1.5) mg/dL Estimated Creat Clear 51.14 Estimated GFR 71 ml/min Glucose 96 (60-115) mg/dL Lactate (0.5-1.9) mmol/L Calcium 9.1 (8.4-10.6) mg/dL Total Bilirubin 0.3 (0.1-1.5) mg/dL AST 37 H (12-35) U/L ALT 36 H (4-35) U/L Alkaline Phosphatase 97 (40-150) U/L C-Reactive Protein 0.9 (0.5-1.0) mg/dL NT-Pro-B Natriuret Pep (0-125) PG/mL Total Protein 7.8 (6.0-8.3) g/dL Albumin 4.6 (3.3-5.0) g/dL Lipase (23-300) U/L SARS-CoV-2 (PCR) (Negative) POC Troponin I (0.01-0.04) ng/ml 01/08/22 01/08/22 01/08/22 Range/Units 17:00 17:00 17:00 WBC (4.50-11.00) K/uL RBC (4.00-5.20) m/uL Hgb (12.0-16.0) gm/dL Hct (33.0-51.0) % MCV (80-100) fL MCH (26-34) pg MCHC (32-36) gm/dL RDW Coeff of Anamika (11.5-15.5) % Plt Count (140-440) K/uL Neut % (Auto) (42.0-72.0) % Lymph % (Auto) (20-44) % Hendry % (Auto) (0.0-11.0) % Eos % (Auto) (0.0-7.0) % Baso % (Auto) (0.0-3.0) % Neut # (Auto) (1.7-7.0) K/uL Lymph # (Auto) (0.90-2.90) K/uL Hendry # (Auto) (0.00-0.90) K/UL Eos # (Auto) (0.00-0.50) K/uL Baso # (Auto) (0.00-0.30) K/uL Abs Immat Gran (auto) (0.00-0.30) K/uL D-Dimer Quant (PE/DVT) (0.00-0.50) ug/ml Sodium (135-149) mmol/L Potassium (3.6-5.1) mmol/L Chloride (96-114) mmol/L Carbon Dioxide (20-32) mmol/L BUN (7-30) mg/dL Creatinine (0.5-1.5) mg/dL Estimated Creat Clear Estimated GFR ml/min Glucose (60-115) mg/dL Lactate 1.2 (0.5-1.9) mmol/L Calcium (8.4-10.6) mg/dL Total Bilirubin (0.1-1.5) mg/dL AST (12-35) U/L ALT (4-35) U/L Alkaline Phosphatase (40-150) U/L C-Reactive Protein (0.5-1.0) mg/dL NT-Pro-B Natriuret Pep 164 H (0-125) PG/mL Total Protein (6.0-8.3) g/dL Albumin (3.3-5.0) g/dL Lipase 60 (23-300) U/L SARS-CoV-2 (PCR) (Negative) POC Troponin I 0.00 L (0.01-0.04) ng/ml 01/08/22 Range/Units 17:00 WBC (4.50-11.00) K/uL RBC (4.00-5.20) m/uL Hgb (12.0-16.0) gm/dL Hct (33.0-51.0) % MCV (80-100) fL MCH (26-34) pg MCHC (32-36) gm/dL RDW Coeff of Anamika (11.5-15.5) % Plt Count (140-440) K/uL Neut % (Auto) (42.0-72.0) % Lymph % (Auto) (20-44) % Hendry % (Auto) (0.0-11.0) % Eos % (Auto) (0.0-7.0) % Baso % (Auto) (0.0-3.0) % Neut # (Auto) (1.7-7.0) K/uL Lymph # (Auto) (0.90-2.90) K/uL Hendry # (Auto) (0.00-0.90) K/UL Eos # (Auto) (0.00-0.50) K/uL Baso # (Auto) (0.00-0.30) K/uL Abs Immat Gran (auto) (0.00-0.30) K/uL D-Dimer Quant (PE/DVT) (0.00-0.50) ug/ml Sodium (135-149) mmol/L Potassium (3.6-5.1) mmol/L Chloride (96-114) mmol/L Carbon Dioxide (20-32) mmol/L BUN (7-30) mg/dL Creatinine (0.5-1.5) mg/dL Estimated Creat Clear Estimated GFR ml/min Glucose (60-115) mg/dL Lactate (0.5-1.9) mmol/L Calcium (8.4-10.6) mg/dL Total Bilirubin (0.1-1.5) mg/dL AST (12-35) U/L ALT (4-35) U/L Alkaline Phosphatase (40-150) U/L C-Reactive Protein (0.5-1.0) mg/dL NT-Pro-B Natriuret Pep (0-125) PG/mL Total Protein (6.0-8.3) g/dL Albumin (3.3-5.0) g/dL Lipase (23-300) U/L SARS-CoV-2 (PCR) Negative SARS-CoV-2 (Negative) POC Troponin I (0.01-0.04) ng/ml Imaging Data Chest x-ray: Attestation: I have reviewed the pertinent imaging results. (Sinus rhythm, 73 beats per minute, no abnormality, QT corrected 436 milliseconds.) My impression: No acute pathology on my preliminary read. Radiologist's impression: Patient: JUNI PALENCIA Facility:?[facility] Patient ID:?[id number] Site Patient ID:?[id number]. Site :?[id number] Study:?XRay Chest 1 VIEW PORTABLE-01/08/2022 4:54:36 PM Ordering Physician:?Brayan Jaquez Final Report: INDICATION: Chest pain. TECHNIQUE: Chest 1 views. COMPARISON: Chest x-ray from 12/27/2021. FINDINGS: Lungs: Clear lungs. No consolidation. Pleura: No pleural effusion or pneumothorax. Heart and Mediastinum: The cardiomediastinal silhouette is normal. The vessels are unremarkable. Bones: Unremarkable. IMPRESSION: No acute cardiopulmonary disease. Dictated by Edgardo Blanco MD @ 01/08/2022 4:57:56 PM (Electronic Signature) Critical Care Time Critical Care Time Critical Care Time: No Discharge Plan Discharge Clinical Impression: Atypical chest pain Condition: Stable Instructions: Chest Pain (ED), Noncardiac Chest Pain (ED) Additional Instructions: Start omeprazole 40 mg daily. Have provided a prescription for 2 weeks. You will need to discuss this further next week when you follow-up with your primary care, consider EGD. You can discuss with them if they should feel any cardiac stress testing should be done. We have found no evidence of EKG abnormalities, no elevated heart enzymes, D-dimers have been normal both today and prior when you were in on December 27. I do wonder if this could be reflux disease or other gastrointestinal diagnoses. Further outpatient workup that cannot be done in the ER will need to be considered to further evaluate this. Activity Level: Activity as Tolerated Prescriptions: New omeprazole 40 mg capsule,delayed release(DR/EC) 40 mg PO DAILY Qty: 14 0RF No Action acetaminophen 325 mg tablet 650 mg PO Q6H PRN (Reason: pain) amitriptyline 50 mg tablet 50 mg PO HS amlodipine 10 mg tablet 10 mg PO HS budesonide 0.5 mg/2 mL suspension for nebulization 0.5 mg inhalation BID glipizide 5 mg tablet 5 mg PO DAILY levothyroxine 25 mcg tablet 25 mcg PO DAILY metoprolol succinate 50 mg tablet extended release 24 hr 50 mg PO DAILY simvastatin 20 mg tablet 20 mg PO HS antacid suspension See Rx Instructions PO DAILY PRN Rx Instructions: 15-30ml orally daily PRN; sennosides [senna] 8.6 mg tablet 8.6 mg PO BID PRN rizatriptan 5 mg tablet 5 mg PO DAILY PRN Rx Instructions: may repeat once after 2 hours polyethylene glycol 3350 17 gram/dose powder 17 g PO DAILY PRN albuterol sulfate [Ventolin HFA] 90 mcg/actuation HFA aerosol inhaler 2 puff INHALATION Q4H PRN diphenhydramine HCl [Banophen] 25 mg capsule 25 mg PO Q8H PRN (Reason: allergic symptoms) Rx Instructions: 1-2 caps prn hydroxyzine HCl 25 mg tablet 25 mg PO HS PRN (Reason: anxiety) nitroglycerin 0.4 mg tablet, sublingual 0.4 mg sublingual Q5M PRN Rx Instructions: max 3 tabs within 15 minutes warfarin 2 mg tablet Rx Instructions: DIRECTED warfarin 4 mg tablet Rx Instructions: DIRECTED naproxen sodium [All Day Pain Relief] 220 mg tablet 220 mg PO .once weekly PRN Follow Up/Referrals: Kandace Mckeon DO [Primary Care Provider] - Stand Alone Forms: [facility] Info Instructions
--- OUTSIDE RECORDS SUMMARY | 2022-01-08 16:37 | XMS_ITS | Encounter Summary ---
:1955 Author Organization [facility] Address [address] [place] [address] Care Team Providers Name Role Phone Elsewhere, Pcp Primary Care Provider Unavailable Reason for Referral MRI/CAT/PET Scan (Routine) - Closed Specialty Diagnoses / Procedures Referred By Contact Refer red To Contact Radiology Diagnoses Mass Kidney Kristen Watts M.D. [facility] Procedures CT Abdomen Pelvis with IV Contrast CT Abdomen Pelvis without and with IV Contrast [address] [place] [address] Referral ID Status Reason Start Date Expiration Date Visits Requ ested Visits Authorized [id number] Closed 02/06/2021 02/06/2022 1 1 COORDINATOR Reason for Visit MRI/CAT/PET Scan (Routine) - Closed Specialty Diagnoses / Procedures Referred By Contact Refer red To Contact Radiology Diagnoses Mass Kidney Kristen Watts M.D. [facility] Procedures CT Abdomen Pelvis with IV Contrast CT Abdomen Pelvis without and with IV Contrast [address] [place] [address] Referral ID Status Reason Start Date Expiration Date Visits Requ ested Visits Authorized [id number] Closed 02/06/2021 02/06/2022 1 1 Encounter Details Date Type Department Care Team Description 05/02/2021 Hospital Encounter Department of Radiology, Yamile Watts M.D. Mass Kidney [facility], in [place], [place] [address] [place] [address] Social History Tobacco Use Types Packs/Day [...] do you attend amish or Never 2018 nondenominational services? Do you [...] this WITH IV CONTRAST (most inpatients AM MDS COORDINATOR procedu re are in and all the results outpatients) section. CREATININE, POCT, Routine 05/02/2021 11:23 Result s for this B AM MDS COORDINATOR procedure are i n the results section. CREATININE, POCT, Routine 05/02/2021 11:23 Result s for this B AM MDS COORDINATOR procedure are i n the results section. documented in this encounter Results CT Abdomen Pelvis with IV Contrast (05/02/2021 11:48 AM MDS COORDINATOR) Anatomical Region Laterality Modality Abdomen, Pelvis, Abdominal RST LOS, N/A Comp uted Tomography, Computed Abdominal ARZ LOS, Abdominal FLA LOS Godwin ography Specimen (Source) Anatomical Collection Method Collection Time Re ceived Time Location / / Volume Laterality 05/02/2021 11:49 AM MDS COORDINATOR Impressions 05/02/2021 1:00 PM MDS COORDINATOR 1. Slight interval enlargement of the 1.6 cm left renal mass likely representing a primary renal neoplasm. 2. No evidence of metastatic disease in the abdomen or pelvis. Narrative 05/02/2021 1:00 PM MDS COORDINATOR EXAM: ??CT ABDOMEN PELVIS WITH IV CONTRAST [...] CT PROCEDURES Creatinine, POCT (05/02/2021 11:23 AM MDS COORDINATOR) athologist Signature Creatinine, 0.7 0.6 - 1.0 05/02/2021 PCDT POCT, B mg/dL 11:28 AM MDS COORDINATOR Comment: ----ADDITIONAL INFORMATION---- Performed at the Point of Care Specimen Anatomical Collection Method Collection Time Receive d Time (Source) Location / / Volume Laterality Blood 05/02/2021 11:23 05/02/2021 AM MDS COORDINATOR 11:29 AM MDS COORDINATOR Unknown Provider LAB POCT ORDERABLES - DEVICE Performing Organization Address City/State/ZIP Code Phon e Number [place] PERFORMING [address] [place] [address] LABS PCDT [facility] [place] [address] [place] [facility] [address] Creatinine, POCT (05/02/2021 11:23 AM MDS COORDINATOR) P athologist Signature eGFR-Black/Afri >90 >=60 05/02/2021 PCDT can Indonesian, mL/min/BSA 11:29 AM MDS COORDINATOR POCT Comment: ----ADDITIONAL INFORMATION---- Estimated GFR calculated using the 2009 CKD_EPI creatinine equation. eGFR Non-Black/, >90 >=60 mL/min/BSA 05/02/2021 11:29 AM MDS COORDINATOR PCDT POCT Comment: ----ADDITIONAL INFORMATION---- Estimated GFR calculated using the 2009 CKD_EPI creatinine equation. Specimen Anatomical Collection Method Collection Time Receive d Time (Source) Location / / Volume Laterality Blood 05/02/2021 11:23 05/02/2021 AM MDS COORDINATOR 11:29 AM MDS COORDINATOR Unknown Provider LAB POCT ORDERABLES - DEVICE Performing Organization Address City/State/ZIP Code Phon e Number [facility] PERFORMING [address] [place] [address] LABS PCDT [facility] [place] [address] [place] [facility] [address] documented in this encounter Visit Diagnoses Diagnosis Mass Kidney documented in this encounter Administered Medications Inactive Administered Medications - up to 3 most recent administrations Medication Order MAR Action Action Date Dose Rate Site iohexoL 300 mg iodine/mL solution Given 05/02/2021 11:38 AM MDS COORDINATOR 140 mL 1-200 mL (OMNIPAQUE) 1-200 mL, intravenous, Once in imaging, contrast, Starting on Fri05/02/21 at 1114, For 1 dose, Imaging Protocol Orders, Dose per Radiant Medication Guidelines sodium chloride (PF) 0.9 % injection 1-1 00 mL Given 05/02/2021 11:38 AM MDS COORDINATOR 50 mL 1-100 mL, intravenous, Once, On Fri05/02/21 at 1115, For 1 dose, Imaging Protocol Orders documented in this encounter Additional Health Concerns Assessment Noted Time PHQ-9 Depression Total Score: 11 05/04/2013 4:05 PM CS T documented as of this encounter Care Teams Real Estate Asset Manager Relationship Specialty Start Date End Date Elsewhere, Pcp PCP - General Internal Medicine 07/27/18 documented as of this encounter
--- OUTSIDE RECORDS SUMMARY | 2022-01-08 16:37 | XMS_ITS | Encounter Summary ---
:1955 Author Organization [facility] Address [address] [place] [address] Care Team Providers Name Role Phone Elsewhere, Pcp Primary Care Provider Unavailable Encounter Details Date Type Department Care Team Description 03/30/2020 Hospital Encounter Department of Laboratory Geeta Rodriguez [facility] Kidney Medicine and Pathology, R, MJohnCount Includes [facility] in [place], [place] [address] [place] [address] Social History Tobacco Use Types Packs/Day [...] or relatives? How often do you attend mu-ism or Never 2018 sabianist services? Do you belong to any clubs or No 02/26/2019 organizations such as mu-ism groups, unions, fraternal or athletic groups, or [...] 03/30/2020 4:05 PM Res ults for this TRIMMER BUFFING WHEEL procedure are i n the results section. URINALYSIS WITH Routine 03/30/2020 4:05 PM Mass Kidney Result s for this MICROSCOPIC TRIMMER BUFFING WHEEL procedure are i n the results section. documented in this encounter Results (ABNORMAL) Microscopic Manual (03/30/2020 4:05 PM TRIMMER BUFFING WHEEL) P athologist Signature Microscopy Abnormal 03/30/2020 [place] 6:27 PM TRIMMER BUFFING WHEEL WBC 4-10 /hpf 03/30/2020 [place] 6:27 PM TRIMMER BUFFING WHEEL Comment: ----REFERENCE VALUE---- 1-3 ??(Males) 1-10 (Females) Casts, Hyaline 4-10 /lpf 03/30/2020 6:27 PM TRIMMER BUFFING WHEEL RE NA Squamous Epithelial 4-10 /hpf 03/30/2020 6:[address] [place] Cells, U Bacteria Present (A) 03/30/2020 6:27 PM TRIMMER BUFFING WHEEL [place] Crystals Calcium Oxalate 03/30/2020 6:27 PM TRIMMER BUFFING WHEEL R ALFA crystals present Specimen Anatomical Collection Method Collection Time Receive d Time (Source) Location / / Volume Laterality Urine 03/30/2020 4:05 PM 4:05 TRIMMER BUFFING WHEEL PM TRIMMER BUFFING WHEEL Geeta Ware M.D. LAB URINE ORDERABLES Performing Organization Address City/State/ZIP Code Phon e Number [facility] - [address] [place], [place] [address] [facility] [place] [address] [facility] [address] (ABNORMAL) Urinalysis with Microscopic: Urine, Clean Catch (03/30/2020 4:05 PM TRIMMER BUFFING WHEEL) [facility] gist Method Time Signature Source Midstream 03/30/2020 [place] 4:05 PM TRIMMER BUFFING WHEEL Appearance Normal Normal 03/30/2020 [place] 6:00 PM TRIMMER BUFFING WHEEL Osmolality, U 536 150 - 1150 03/30/2020 [place] mOsm/kg 5:24 PM TRIMMER BUFFING WHEEL pH, U 6.1 4.5 - 8.0 03/30/2020 [place] 5:24 PM TRIMMER BUFFING WHEEL Comment: ----ADDITIONAL INFORMATION---- This test was developed and its performa nce characteristics determined by [facility] in a manner co nsistent with CLIA requirements. This test has not bee n cleared or approved by the U.S. Food and Drug Admin istration. Glucose 16 (H) 0 - 15 mg/dL 03/30/2020 6:00 PM TRIMMER BUFFING WHEEL [place] Protein, U 35 (H) <26 mg/dL 03/30/2020 6:00 PM TRIMMER BUFFING WHEEL [place] Comment: ----ADDITIONAL INFORMATION---- On 09/17/2016 the total protein assay me thod changed resulting in approximately a 15% increase in prote in values. Protein/Osmolality 0.65 (H) <0.42 Ratio 03/30/2020 6:00 PM TRIMMER BUFFING WHEEL [place] Comment: ----ADDITIONAL INFORMATION---- On 09/17/2016 the total protein assay me thod changed resulting in approximately a 15% increase in prote in values. Predicted 24 Hr Protein 454 mg/24 h 03/30/2020 6:00 PM TRIMMER BUFFING WHEEL [place] Predicted Range 112-1839 mg/24 h 03/30/2020 6:00 PM TRIMMER BUFFING WHEEL R ALFA Hemoglobin, QL Negative Negative 03/30/2020 6:27 PM TRIMMER BUFFING WHEEL RE NA Specimen Anatomical Collection Method Collection Time Receive d Time (Source) Location / / Volume Laterality Urine (Urine, 03/30/2020 4:05 PM 03/30/19 4:05 Clean Catch) TRIMMER BUFFING WHEEL PM TRIMMER BUFFING WHEEL Geeta Ware M.D. LAB URINE ORDERABLES Performing Organization Address City/State/ZIP Code Phon e Number [facility] - [address] [place], [place] [address] [place] [address] [facility] [address] documented in this encounter Visit Diagnoses Diagnosis Mass Kidney documented in this encounter Additional Health Concerns Assessment Noted Time PHQ-9 Depression Total Score: 11 05/04/2013 4:05 PM CS T documented as of this encounter Care Teams Unit Educator Relationship Specialty Start Date End Date Elsewhere, Pcp PCP - General Internal Medicine 07/27/18 documented as of this encounter
--- OUTSIDE RECORDS SUMMARY | 2022-01-08 16:37 | XMS_ITS | Encounter Summary ---
:1955 Author Organization [facility] Address [address] [place] [address] Care Team Providers Name Role Phone Elsewhere, Pcp Primary Care Provider Unavailable Reason for Visit Reason Comments Dizziness Atrial Fibrillation Encounter Details Date Type Department Care Team Description 01/25/2021 Clinical Department of Cracking Machine Operator Dizziness; Atr ial Communication Cardiovascular , [facility] in [place], [place] [address] [place] [address] Social History Tobacco Use Types Packs/Day Years [...] do you attend judaism or Never 2018 scientologist services? Do you belong to any clubs [...] Quinones - 01/26/2021 11:11 AM CDT Called [email or web address] [phone]. She will connect with patient and have patient's PCIM order a 48-hour Holter Monitor, as patient hasn't had any rhythm monitoring done. Telephone Encounter - Carlota Casiano - 01/25/2021 2:35 PM CDT Symptoms ?? Goal or summary: Appt w/Testing ?? Recent change/new symptom/duration: [facility] ([phone]) check up, says things are off says [...] documented as of this encounter Care Teams Painter Plate Relationship Specialty Start Date End Date Elsewhere, Pcp PCP - General Internal Medicine 07/27/18 documented as of this encounter
--- OUTSIDE RECORDS SUMMARY | 2022-01-08 16:37 | XMS_ITS | Encounter Summary ---
:1955 Author Organization [facility] Address [address] [place] [address] Care Team Providers Name Role Phone Elsewhere, Pcp Primary Care Provider Unavailable Reason for Referral Outpatient (Routine) - Closed Specialty Diagnoses / Procedures Referred By Contact Refer red To Contact Urology Brian Mathias M.D . [address] [address] Referral ID Status Reason Start Date Expiration Date Visits Requ ested Visits Authorized [id number] Closed 05/04/2020 05/04/2021 1 1 COMMUNICATION SYSTEMS DESIGNER Encounter Details Date Type Department Care Team Description 05/04/2020 Orders Only Department of Urology Brian Mathias Ki dney And Ureter in [place] Disorder (Prim raman Dx) [address] [address] Social History Tobacco Use Types Packs/Day Years [...] do you attend mandaeism or Never 2018 yazidi services? Do you belong to any clubs or No 02/26/2019 organizations such as mandaeism groups, unions, [employer] or athletic groups, or school groups? How [...] documented as of this encounter Care Teams Staff Genetic Counselor Relationship Specialty Start Date End Date Elsewhere, Pcp PCP - General Internal Medicine 07/27/18 documented as of this encounter
--- OUTSIDE RECORDS SUMMARY | 2022-01-08 16:37 | XMS_ITS | Encounter Summary ---
:1955 Author Organization [facility] Address [address] [place] [address] Care Team Providers Name Role Phone Elsewhere, Pcp Primary Care Provider Unavailable Encounter Details Date Type Department Care Team Description 05/04/2020 Clinical Communication Department of Urology Stacy Mathias in [place] [address] [place] [address] Social History Tobacco Use Types Packs/Day Years [...] do you attend episcopalian or Never 2018 worship services? Do you [...] office visit. All questions answered. Orders placed. LE LOADER documented in this encounter Plan of Treatment Not on filedocumented as of this encounter Visit Diagnoses Not on filedocumented in this encounter Additional Health Concerns Assessment Noted Time PHQ-9 Depression Total Score: 05/04/2013 4:05 PM CS T documented as of this encounter Care Teams Automotive Project Engineer Relationship Specialty Start Date End Date Elsewhere, Pcp PCP - General Internal Medicine 07/27/18 documented as of this encounter
--- OUTSIDE RECORDS SUMMARY | 2022-01-08 16:37 | XMS_ITS | Encounter Summary ---
:1955 Author Organization [facility] Address [address] [place] [address] Care Team Providers Name Role Phone Elsewhere, Pcp Primary Care Provider Unavailable Encounter Details Date Type Department Care Team Description 04/07/2020 Hospital Encounter [facility] [place], in [address] [address] Social History Tobacco Use Types Packs/Day [...] do you attend moravian or Never 2018 episcopalian services? Do you [...] COVID19 Pending 04/07/2020 04/07/2020 04/07/2020 7:59 PM TAKER OUT Assessment Noted Time PHQ-9 Depression Total Score: 11 05/04/2013 4:05 PM CS T documented as of this encounter Care Teams Sawmill Manager Relationship Specialty Start Date End Date Elsewhere, Pcp PCP - General Internal Medicine 07/27/18 documented as of this encounter
--- OUTSIDE RECORDS SUMMARY | 2022-01-08 16:37 | XMS_ITS | Encounter Summary ---
:1955 Author Organization [facility] Address [address] [place] [address] Care Team Providers Name Role Phone Elsewhere, Pcp Primary Care Provider Unavailable Reason for Referral MRI/CAT/PET Scan (Routine) - Closed Specialty Diagnoses / Procedures Referred By Contact Refer red To Contact Radiology Diagnoses Kidney And Ureter Disorder Brian Mathias M.D. [facility] Procedures CT Abdomen with IV Contrast CT Abdomen without and with IV Contrast [address] [place] [address] Referral ID Status Reason Start Date Expiration Date Visits Requ ested Visits Authorized [id number] Closed 04/11/2020 04/11/2021 1 1 SUPERVISOR Reason for Visit Outpatient (Routine) - Closed Specialty Diagnoses / Procedures Referred By Contact Refer steven To Contact Urology Zac Gonzalez M.D. [facility] [address] [place] [address] Referral ID Status Reason Start Date Expiration Date Visits Requ ested Visits Authorized [id number] Closed 01/05/2020 01/04/2021 1 1 Encounter Details Date Type Department Care Team Description 04/11/2020 Office Visit Department of Urology Brian Mathias Ma ss Kidney (Primary Dx); in [place] Kidney And Ure ter Disorder [place] [address] [place] [address] Social History Tobacco Use Types Packs/Day Years [...] do you attend spiritism or Never 2018 restoration services? Do you [...] PM CST PROGRESS NOTE REASON FOR VISIT TRACTOR DRILL OPERATOR Calendar HISTORY OF PRESENT ILLNESS Ms. [...] guidance for vascular access; Surgeon: Marla Yeager M.BEdilmaB.S.; Location: [facility] ??? CATH ABLATION [...] by: Brian Mathias M.D. 04/11/2020 7:00 AM CASE SUPERVISOR Answers for HPI/ROS submitted by the [...] Yes Bruises/bleeds easily: Yes Frequent urination: Yes SUPERVISOR documented in this encounter Plan of Treatment Not on filedocumented as of this encounter Results CT Abdomen with IV Contrast (04/24/2020 1:25 PM CASE SUPERVISOR) Anatomical Region Laterality Modality Abdomen, Abdominal RST LOS, Abdominal N/A Co mputed Tomography, Computed ARZ LOS, Abdominal FLA LOS Tomography Specimen (Source) Anatomical Collection Method Collection Time Re ceived Time Location / / Volume Laterality 04/24/2020 2:21 PM CASE SUPERVISOR Impressions 04/24/2020 2:47 PM CASE SUPERVISOR 1. No change since 11/30/2019 indeterminate 1.4 cm left renal mass likely representing primary renal neoplasm. 2. Small hiatal hernia. 3. Probable osteoporosis. Narrative 04/24/2020 2:47 PM CASE SUPERVISOR EXAM: ??CT ABDOMEN WITH IV CONTRAST [...] Small hiatal hernia. 3. Probable osteoporosis. Brian Mathias M.D. 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
--- OUTSIDE RECORDS SUMMARY | 2022-01-08 16:37 | XMS_ITS | Encounter Summary ---
:1955 Author Organization [facility] Address [address] [place] [address] Care Team Providers Name Role Phone Elsewhere, Pcp Primary Care Provider Unavailable Reason for Referral MRI/CAT/PET Scan (Routine) - Closed Specialty Diagnoses / Procedures Referred By Contact Refer red To Contact Radiology Diagnoses Kidney And Ureter Disorder Brian Mathias M.D. [facility] Procedures CT Abdomen with IV Contrast CT Abdomen without and with IV Contrast [address] [place] [address] Referral ID Status Reason Start Date Expiration Date Visits Requ ested Visits Authorized [id number] Closed 04/11/2020 04/11/2021 1 1 RSONATOR CHARACTER Reason for Visit MRI/CAT/PET Scan (Routine) - Closed Specialty Diagnoses / Procedures Referred By Contact Refer red To Contact Radiology Diagnoses Kidney And Ureter Disorder Brian Mathias M.D. [facility] Procedures CT Abdomen with IV Contrast CT Abdomen without and with IV Contrast [address] [place] [address] Referral ID Status Reason Start Date Expiration Date Visits Requ ested Visits Authorized [id number] Closed 04/11/2020 04/11/2021 1 1 Encounter Details Date Type Department Care Team Description 04/24/2020 Hospital Encounter Department of Brian Mathias Kidney And Ureter Radiology, Prakash Miranda M.D. [facility], in [place], [place] [address] [place] [address] Social History Tobacco Use Types Packs/Day Years [...] do you attend methodist or Never 2018 christianity services? Do you [...] for this IV CONTRAST (most inpatients PM IMPERSONATOR CHARACTER Disorder procedure a re in and all the results outpatients) section. documented in this encounter Results CT Abdomen with IV Contrast (04/24/2020 1:25 PM IMPERSONATOR CHARACTER) Anatomical Region Laterality Modality Abdomen, Abdominal RST LOS, Abdominal N/A Co mputed Tomography, Computed ARZ LOS, Abdominal FLA LOS Tomography Specimen (Source) Anatomical Collection Method Collection Time Re ceived Time Location / / Volume Laterality 04/24/2020 2:21 PM IMPERSONATOR CHARACTER Impressions 04/24/2020 2:47 PM IMPERSONATOR CHARACTER 1. No change since 11/30/2019 indeterminate 1.4 cm left renal mass likely representing primary renal neoplasm. 2. Small hiatal hernia. 3. Probable osteoporosis. Narrative 04/24/2020 2:47 PM IMPERSONATOR CHARACTER EXAM: ??CT ABDOMEN WITH IV CONTRAST COMPARISON: [...] mg iodine/mL solution Given 04/24/2020 1:16 PM IMPERSONATOR CHARACTER 1 40 mL 1-200 mL (OMNIPAQUE) 1-200 mL, intravenous, Once in imaging, contrast, Starting on Fri04/24/20 at 1238, For 1 dose, Imaging Protocol Orders, Dose per Radiant Medication Guidelines sodium chloride (PF) 0.9 % injection 1-1 00 mL Given 04/24/2020 1:16 PM IMPERSONATOR CHARACTER 50 mL 1-100 mL, intravenous, Once, On Fri04/24/20 at 1245, For 1 dose, Imaging Protocol Orders documented in this encounter Additional Health Concerns Assessment Noted Time PHQ-9 Depression Total Score: 11 05/04/2013 4:05 PM CS T documented as of this encounter Care Teams Front End Web Designer Relationship Specialty Start Date End Date Elsewhere, Pcp PCP - General Internal Medicine 07/27/18 documented as of this encounter
--- OUTSIDE RECORDS SUMMARY | 2022-01-08 16:37 | XMS_ITS | Encounter Summary ---
:1955 Author Organization [facility] Address [address] [place] [address] Care Team Providers Name Role Phone Elsewhere, Pcp Primary Care Provider Unavailable Encounter Details Date Type Department Care Team Description 05/02/2021 Hospital Encounter Department of Laboratory Yamile Watts M.D. [facility] Kidney Medicine and Pathology, [facility] in [place], [place] [address] [place] [address] Social History Tobacco Use Types Packs/Day [...] do you attend druze or Never 2018 islam services? Do you [...] Procedure Name Priority Date/Time Associated Comments Diagnosis NE OSMOLALITY ASSAY Routine 05/02/2021 10:17 Resu lts for this URINE AM SEISMIC COMPUTER procedure are i n the results section. DIPSTICK, U Routine 05/02/2021 10:17 Results for this AM SEISMIC COMPUTER procedure are i n the results section. PH, RANDOM, U Routine 05/02/2021 10:17 Results fo r this AM SEISMIC COMPUTER procedure are i n the results section. MICROSCOPIC MANUAL Routine 05/02/2021 10:17 Resul ts for this AM SEISMIC COMPUTER procedure are i n the results section. URINALYSIS WITH Routine 05/02/2021 10:17 Mass Kidney Results for this MICROSCOPIC AM SEISMIC COMPUTER procedure are i n the results section. documented in this encounter Results Dipstick, Urine (05/02/2021 10:17 AM SEISMIC COMPUTER) [facility] gist Method Time Signature Hemoglobin, Negative Negative 05/02/2021 DTL QL, U 11:20 AM SEISMIC COMPUTER Leukocyte Negative Negative 05/02/2021 DTL Esterase, U 11:20 AM SEISMIC COMPUTER Nitrite, U Negative Negative 05/02/2021 DTL 11:20 AM SEISMIC COMPUTER Ketone, U Negative Negative 05/02/2021 DTL mg/dL 11:20 AM SEISMIC COMPUTER Glucose, U Negative Negative 05/02/2021 DTL mg/dL 11:20 AM SEISMIC COMPUTER Specimen Anatomical Collection Method Collection Time Receive d Time (Source) Location / / Volume Laterality Urine 05/02/2021 10:17 05/02/2021 AM SEISMIC COMPUTER 11:05 AM SEISMIC COMPUTER Kristen Watts M.D. LAB URINE ORDERABLES Performing Organization Address City/[facility] Phon e Number [facility] - [address] Osmolality, Urine (05/02/2021 10:17 AM SEISMIC COMPUTER) athologist Signature Osmolality, U 519 150 - 1150 05/02/2021 DTL mOsm/kg 12:05 PM SEISMIC COMPUTER Specimen Anatomical Collection Method Collection Time Receive d Time (Source) Location / / Volume Laterality Urine 05/02/2021 10:17 05/02/2021 AM SEISMIC COMPUTER 11:05 AM SEISMIC COMPUTER Kristen Watts M.D. LAB URINE ORDERABLES Performing Organization Address City/[facility] Phon e Number [facility] - [address] [place] [address] [place] [address] pH, Random, Urine (05/02/2021 10:17 AM SEISMIC COMPUTER) P athologist Signature pH, Random, U 5.1 4.5 - 8.0 05/02/2021 DTL 12:05 PM SEISMIC COMPUTER Specimen Anatomical Collection Method Collection Time Receive d Time (Source) Location / / Volume Laterality Urine 05/02/2021 10:17 05/02/2021 AM SEISMIC COMPUTER 11:05 AM SEISMIC COMPUTER Kristen Watts M.D. LAB URINE ORDERABLES Performing Organization Address [facility]/ZIP [facility] Phon e Number [facility] - [address] [place] [address] (ABNORMAL) Microscopic Manual (05/02/2021 10:17 AM SEISMIC COMPUTER) P athologist Signature Microscopy Abnormal 05/02/2021 DTL 1:14 PM SEISMIC COMPUTER RBC <3 <3 /hpf 05/02/2021 DTL 1:14 PM SEISMIC COMPUTER WBC 1-3 /hpf 05/02/2021 DTL 1:14 PM SEISMIC COMPUTER Comment: ----REFERENCE VALUE---- 1-3 ??(Males) 1-10 (Females) Squamous Epithelial Cells, U 4-10 /hpf 05/02/2021 1:14 PM SEISMIC COMPUTER DTL Bacteria Present (A) 05/02/2021 1:14 PM SEISMIC COMPUTER DTL Specimen Anatomical Collection Method Collection Time Receive d Time (Source) Location / / Volume Laterality Urine 05/02/2021 10:17 05/02/2021 AM SEISMIC COMPUTER 11:05 AM SEISMIC COMPUTER Kristen Watts M.D. LAB URINE ORDERABLES Performing Organization Address City/[facility] Phon e Number [address] (ABNORMAL) Urinalysis with Microscopic: Urine, Midstream (05/02/2021 10:17 AM SEISMIC COMPUTER) [facility] gist Method Time Signature Source Urine, Urine, 05/02/2021 DTL Midstream 11:04 AM SEISMIC COMPUTER Color, U Yellow 05/02/2021 DTL 11:05 AM SEISMIC COMPUTER Clarity, U Cloudy (A) 05/02/2021 DTL 11:05 AM SEISMIC COMPUTER Protein, U 24 <26 mg/dL 05/02/2021 DTL 12:15 PM SEISMIC COMPUTER Protein/Osmol 0.46 (H) <0.42 05/02/2021 DTL ality ratio 12:15 PM SEISMIC COMPUTER Predicted 24 332 mg/24 h 05/02/2021 DTL Hr Protein 12:15 PM SEISMIC COMPUTER Predicted 82-1344 mg/24 h 05/02/2021 DTL Range 12:15 PM SEISMIC COMPUTER Specimen Anatomical Collection Method Collection Time Receive d Time (Source) Location / / Volume Laterality Urine (Urine, 05/02/2021 10:17 05/02/2021 Midstream) AM SEISMIC COMPUTER 11:04 AM SEISMIC COMPUTER Kristen Watts M.D. LAB URINE ORDERABLES Performing Organization Address City/State/ZIP Code Phon e Number [facility] - [address] [place], [place] [address] [facility] [place] [address] Laboratories-[facility] [address] documented in this encounter Visit Diagnoses Diagnosis Mass Kidney documented in this encounter Additional Health Concerns Assessment Noted Time PHQ-9 Depression Total Score: 11 05/04/2013 4:05 PM CS T documented as of this encounter Care Teams Microbiology Technologist Relationship Specialty Start Date End Date Elsewhere, Pcp PCP - General Internal Medicine 07/27/18 documented as of this encounter
--- OUTSIDE RECORDS SUMMARY | 2022-01-08 16:37 | XMS_ITS | Encounter Summary ---
:1955 Author Organization [facility] Address [address] [place] [id number] Care Team Providers Name Role Phone Elsewhere, Pcp Primary Care Provider Unavailable Reason for Visit Outpatient (Routine) - Closed Specialty Diagnoses / Procedures Referred By Contact Refer red To Contact [facility]hin[facility]ology Diagnoses [facility] [address] [place] [address] Referral ID Status Reason Start Date Expiration Date Visits Requ ested Visits Authorized [id number] Closed 03/30/2020 03/30/2021 1 1 Encounter Details Date Type Department Care Team Description 04/11/2020 Comprehensive Visit Department of Wendy Kim ess Otorhinolaryngology in [place], [place] P.A.-C., [address] [place] [address] [address] [facility] [phone] [place] [address] Social History Tobacco Use Types Packs/Day Years [...] do you attend religious or Never 2018 jainism services? Do you [...] has non-labored breathing. No audible stridor. Skin: [place] and dry. Psych: Appropriate mood and affect. [...] see her back on a p.r.n. basis. 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
--- OUTSIDE RECORDS SUMMARY | 2022-01-08 16:37 | XMS_ITS | Encounter Summary ---
:1955 Author Organization [facility] Address [address] [place] [address] Care Team Providers Name Role Phone Elsewhere, Pcp Primary Care Provider Unavailable Reason for Referral Outpatient (Routine) - Authorized Specialty Diagnoses / Procedures Referred By Contact Refer red To Contact Diagnoses Flutter Atrial (HCC) Atrial Fibrillation Paroxysmal (HCC) [facility] Heart Rhythm Monitor (Holter) Bess [address] [place] [address] Referral ID Status Reason Start Date Expiration Date Visits V isits Requested Authorized [id number] Authorized 01/30/2021 01/30/2022 1 1 OW SASH INSTALLER Encounter Details Date Type Department Care Team Description 01/30/2021 Orders Only Department of Pocket Flap Creasing Machine Operator, Flutter Atria l (HCC) (Primary Dx); Cardiovascular Medicine Bess Randall Atri al Fibrillation Paroxysmal (HCC) in [facility] nasim [address] [place] [address] Social History Tobacco Use [...] or relatives? How often do you attend zoroastrian or Never 2018 adventist services? Do you belong to any clubs or No 02/26/2019 organizations such as zoroastrian groups, unions, fraPublic Mobile or athletic groups, or school groups? How [...] encounter Results HOLTER MONITOR - IN CLINIC TAPE CONTROL SKIN OR SPAR MILL OPERATOR (03/01/2021 9:47 PM WINDOW SASH INSTALLER) [facility] gist Method Time Signature Min Heart Rate [...] AF Duration 0 duration INFOBIONIC MOME AF [place] 0 percent INFOBIONIC MOME Symptom Count 1 count INFOBIONIC MOME Specimen (Source) Anatomical Collection Method Collection Time Re ceived Time Location / / Volume Laterality 02/27/2021 1:24 PM WINDOW SASH INSTALLER Narrative INFOBIONIC MOME - 03/04/2021 10:59 AM [...] No ectopy was seen around this time. Breadman: Jair Little/Solange Momin Procedure Note Peyman Cole [...] No ectopy was seen around this time. Breadman: Jair Little/Solange Momin Porfirio Villegas M.D. CV [...] documented as of this encounter Care Teams Shale Miner Relationship Specialty Start Date End Date Elsewhere, Pcp PCP - General Internal Medicine 07/27/18 documented as of this encounter
--- OUTSIDE RECORDS SUMMARY | 2022-01-08 16:37 | XMS_ITS | Encounter Summary ---
:1955 Author Organization [facility] Address [address] [place] [address] Care Team Providers Name Role Phone Elsewhere, Pcp Primary Care Provider Unavailable Encounter Details Date Type Department Care Team Description 03/07/2021 Clinical Communication Department of Rosemarie Quezada Cardiovascular Medicine A, R.N. in [facility] instant potato processor [address] [facility] [address] [place] [phone] Social History Tobacco Use Types Packs/Day Years [...] do you attend baptist or Never 2018 islam services? Do you [...] Rosemarie Quezada R.N. - 03/07/2021 12:52 PM QUENCHING MACHINE OPERATOR Call placed to [facility] assisted [facility] facility to relay that Dr. Villegas did review the most recent monitor and did not see any rhythm issues of concern at this time so no recommendations for change in plan of care. They are requesting a copy of the monitor report be faxed to [phone] [facility]. I will see if Dr. Villegas's medical engineer can fax that information to them CHING MACHINE OPERATOR documented in this encounter Plan of Treatment Not on filedocumented as of this encounter Visit Diagnoses Not on filedocumented in this encounter Additional Health Concerns Assessment Noted Time PHQ-9 Depression Total Score: 11 05/04/2013 4:05 PM CS T documented as of this encounter Care Teams Java Developer Architect Relationship Specialty Start Date End Date Elsewhere, Pcp PCP - General Internal Medicine 07/27/18 documented as of this encounter
--- OUTSIDE RECORDS SUMMARY | 2022-01-08 16:37 | XMS_ITS | Encounter Summary ---
:1955 Author Organization [facility] Address [address] [place] [address] Care Team Providers Name Role Phone Elsewhere, Pcp Primary Care Provider Unavailable Encounter Details Date Type Department Care Team Description 04/07/2020 Hospital Encounter Department of Josh Rodriguez For Laboratory Medicine Geeta Urias M.D. Screen ing For Other in [place], Viral Disease [facility] (COVID-19) [address] [place] [phone] Social History Tobacco Use Types Packs/Day Years [...] do you attend religious or Never 2018 hindu services? Do you [...] For Re sults for this RNA, V DELIVERY CONSULTANT Screening For Other procedur e are in Viral Diseases the results (COVID-19) section. documented in this encounter Results SARS Coronavirus-2 RNA, V Asymptomatic (04/07/2020 9:12 AM DELIVERY CONSULTANT) [facility] Method Time Signature SARS-CoV-2 Swab, 04/07/2020 MKTO Specimen Nasopharynx 7:58 PM DELIVERY CONSULTANT Source SARS CoV-2 Undetected Undetected 04/07/2020 ARTIS RNA, TMA 7:58 PM DELIVERY CONSULTANT Comment: SARS-CoV-2 RNA absent. This result does not rule out COVID-19 in the patient, as the sensitivity of the test depends o n the timing of the specimen collection and the quality of the specim en. Result should be correlated with patient's history and clinical presentat ion. ----ADDITIONAL INFORMATION---- This molecular amplification test was pe rformed using the Aptima SARS-CoV-2 assay ([employer] on the Photozeens tem under emergency use authorization (EUA) by the U.S. Food and Drug Administ ration. Fact sheets for this EUA assay can be fo und at the following links: For Healthcare Providers: https://www.Zeebo a.gov/media/151724/download For Patients: https://www.fda.gov/media/ 821952/download Specimen Anatomical Collection Method Collection Time Receive d Time (Source) Location / / Volume Laterality Varies 04/07/2020 9:12 AM 3:22 (Nasopharynx) DELIVERY CONSULTANT PM DELIVERY CONSULTANT Geeta Ware M.D. LAB MICROBIOLOGY - GENERAL O RDERABLES Performing Organization Address City/State/ZIP Code Phon e Number [facility]- [address] [place] [address] [place] [address] System [address] documented in this encounter Visit Diagnoses Diagnosis Encounter For Screening For Other Viral Diseases (COVID-19) documented in this encounter Additional Health Concerns Infection Onset Date Last Indicated Resolved Time COVID19 Pending 04/07/2020 04/07/2020 04/07/2020 7:59 PM DELIVERY CONSULTANT Assessment Noted Time PHQ-9 Depression Total Score: 11 05/04/2013 4:05 PM CS T documented as of this encounter Care Teams Pulp Bleacher Relationship Specialty Start Date End Date Elsewhere, Pcp PCP - General Internal Medicine 07/27/18 documented as of this encounter
--- OUTSIDE RECORDS SUMMARY | 2022-01-08 16:37 | XMS_ITS | Encounter Summary ---
:1955 Author Organization [facility] Address [address] [place] [address] Care Team Providers Name Role Phone Elsewhere, Pcp Primary Care Provider Unavailable Encounter Details Date Type Department Care Team Description 05/02/2021 Hospital Encounter Department of Kristen Watts, Kidney And Ureter Disorder; Laboratory Medicine Bess henderson; and Pathology, Diabetes Berna itus Type 2 (HCC) [facility] [place], [place] [address] [place] [address] Social History Tobacco Use Types Packs/Day Years [...] or relatives? How often do you attend restorationist or Never 2018 alevism services? Do you belong to any clubs or No 02/26/2019 organizations such as restorationist groups, unions, fraternal or athletic groups, or [...] AM Diabetes Mellitu s Results for this MILL STENCILER Type 2 (HCC) procedure are i n the results section. BASIC METABOLIC Routine 05/02/2021 10:07 AM Mass Kidney Resul ts for this PANEL, S/P MILL STENCILER procedure are i n the results section. documented in this encounter Results (ABNORMAL) Hemoglobin A1c (05/02/2021 10:07 AM MILL STENCILER) P athologist Signature Hemoglobin A1c, 6.7 (H) 4.0 - 5.6 05/02/2021 DTL B % 10:48 AM MILL STENCILER Comment: Hemoglobin A1c values greater than or eq ual to 6.5 percent are diagnostic for diabetes mellitus. ?? Diagnosis should be confirmed by repeat testing. ??In diabet ic patients, HbA1c goals should be discussed with healthcar e provider. Specimen Anatomical Collection Method Collection Time Receive d Time (Source) Location / / Volume Laterality Blood (Blood, 05/02/2021 10:07 05/02/2021 Venous) AM MILL STENCILER 10:27 AM MILL STENCILER Kristen Watts M.D. LAB BLOOD ADD-ON Performing Organization Address City/State/ZIP Code Phon e Number [facility] - [address] [place] [address] [place] [address] Laboratories-[facility] 200 [facility] Basic Metabolic Panel (05/02/2021 10:07 AM MILL STENCILER) P athologist Signature Potassium, S 4.1 3.6 - 5.2 05/02/2021 DTL mmol/L 11:21 AM MILL STENCILER Sodium, S 141 135 - 145 05/02/2021 DTL mmol/L 11:21 AM MILL STENCILER Chloride, S 103 98 - 107 05/02/2021 DTL mmol/L 11:21 AM MILL STENCILER Bicarbonate, S 26 22 - 29 05/02/2021 DTL mmol/L 11:21 AM MILL STENCILER Anion Gap 12 7 - 15 05/02/2021 DTL 11:21 AM MILL STENCILER BUN (Blood Urea 12 6 - 21 05/02/2021 DTL Nitrogen), S mg/dL 11:21 AM MILL STENCILER Creatinine 0.92 0.59 - 05/02/2021 DTL 1.04 mg/dL 11:21 AM MILL STENCILER eGFR-Non 66 >=60 05/02/2021 DTL Black/ mL/min/BSA 11:21 AM MILL STENCILER Lebanese Comment: ----ADDITIONAL INFORMATION---- Estimated GFR calculated using the 2009 CKD_EPI creatinine equation. eGFR-Black/ 76 >=60 mL/min/BSA 2021 11:21 AM MILL STENCILER DTL Comment: ----ADDITIONAL INFORMATION---- Estimated GFR calculated using the 2009 CKD_EPI creatinine equation. Calcium, Total, S 9.3 8.8 - 10.2 mg/dL 05/02/2021 11:2 1 AM MILL STENCILER DTL Glucose, S 128 70 - 140 mg/dL 05/02/2021 11:21 AM MILL STENCILER DTL Specimen Anatomical Collection Method Collection Time Receive d Time (Source) Location / / Volume Laterality Blood (Blood, 05/02/2021 10:07 05/02/2021 Venous) AM MILL STENCILER 10:54 AM MILL STENCILER Kristen Watts M.D. LAB BLOOD ADD-ON Performing Organization Address City/State/ZIP Code Phon e Number [facility] - [address] [place], [place] [address] [place] [address] Laboratories-[facility] [address] documented in this encounter Visit Diagnoses Diagnosis Kidney And Ureter Disorder Mass Kidney Diabetes Mellitus Type 2 (HCC) documented in this encounter Additional Health Concerns Assessment Noted Time PHQ-9 Depression Total Score: 11 05/04/2013 4:05 PM CS T documented as of this encounter Care Teams Community Engagement Leader Relationship Specialty Start Date End Date Elsewhere, Pcp PCP - General Internal Medicine 07/27/18 documented as of this encounter
--- OUTSIDE RECORDS SUMMARY | 2022-01-08 16:37 | XMS_ITS | Encounter Summary ---
:1955 Author Organization [facility] Address [address] [place] [address] Care Team Providers Name Role Phone Elsewhere, Pcp Primary Care Provider Unavailable Reason for Referral MRI/CAT/PET Scan (Routine) - Closed Specialty Diagnoses / Procedures Referred By Contact Refer red To Contact Radiology Diagnoses Mass Kidney Kristen Watts M.D. [facility] Procedures CT Abdomen Pelvis with IV Contrast CT Abdomen Pelvis without and with IV Contrast [address] [place] [address] Referral ID Status Reason Start Date Expiration Date Visits Requ ested Visits Authorized [id number] Closed 02/06/2021 02/06/2022 1 1 utpatient (Routine) - Closed Specialty Diagnoses / Procedures Referred By Contact Refer red To Contact Diagnoses Other Polyuria Kristen Watts M.D. [facility] Procedures URO Uroflow [address] [place] [address] Referral ID Status Reason Start Date Expiration Date Visits Requ ested Visits Authorized [id number] Closed 02/06/2021 02/06/2022 1 1 WARE ENGINEER Encounter Details Date Type Department Care Team Description 02/06/2021 Orders Only Department of Urology Kristen Watts, Mass Kidney (Primary Dx); in [facility] nasim Kell[place] Other Polyuria; [address] [place] [address] Diabetes Mellitus Type 2 ([place]) [place] [address] Social History Tobacco Use Types Packs/Day Years [...] do you attend spiritism or Never 2018 rastafari services? Do you belong to any clubs [...] encounter Results URO Uroflow (05/03/2021 10:45 AM HARDWARE ENGINEER) Narrative Eusebio Tran M.D. - 05/03/2021 10: 45 AM HARDWARE ENGINEER Eusebio Tran M.D. ? 05/07/2021 ??9:36 AM [...] Pelvis with IV Contrast (05/02/2021 11:48 AM HARDWARE ENGINEER) Anatomical Region Laterality Modality Abdomen, Pelvis, Abdominal RST LOS, N/A Comp uted Tomography, Computed Abdominal ARZ LOS, Abdominal FLA LOS Godwin ography Specimen (Source) Anatomical Collection Method Collection Time Re ceived Time Location / / Volume Laterality 05/02/2021 11:49 AM HARDWARE ENGINEER Impressions 05/02/2021 1:00 PM HARDWARE ENGINEER 1. Slight interval enlargement of the 1.6 cm left renal mass likely representing a primary renal neoplasm. 2. No evidence of metastatic disease in the abdomen or pelvis. Narrative 05/02/2021 1:00 PM HARDWARE ENGINEER EXAM: ??CT ABDOMEN PELVIS WITH IV CONTRAST [...] disease in the abdomen or pelvis. Kristen PARISG CT PROCEDURES (ABNORMAL) Urinalysis with Microscopic: Urine, Midstream (05/02/2021 10:17 AM HARDWARE ENGINEER) [facility] Method Time Signature Source Urine, Urine, 05/02/2021 DTL Midstream 11:04 AM HARDWARE ENGINEER Color, U Yellow 05/02/2021 DTL 11:05 AM HARDWARE ENGINEER Clarity, U Cloudy (A) 05/02/2021 DTL 11:05 AM HARDWARE ENGINEER Protein, U 24 <26 mg/dL 05/02/2021 DTL 12:15 PM HARDWARE ENGINEER Protein/Osmol 0.46 (H) <0.42 05/02/2021 DTL ality ratio 12:15 PM HARDWARE ENGINEER Predicted 24 332 mg/24 h 05/02/2021 DTL Hr Protein 12:15 PM HARDWARE ENGINEER Predicted 82-1344 mg/24 h 05/02/2021 DTL Range 12:15 PM HARDWARE ENGINEER Specimen Anatomical Collection Method Collection Time Receive d Time (Source) Location / / Volume Laterality Urine (Urine, 05/02/2021 10:17 05/02/2021 Midstream) AM HARDWARE ENGINEER 11:04 AM HARDWARE ENGINEER Kristen Watts M.D. LAB URINE ORDERABLES Performing Organization Address City/[facility] Phon e Number [facility] - [address] [place], [place] [address] [place] [address] (ABNORMAL) Hemoglobin A1c (05/02/2021 10:07 AM HARDWARE ENGINEER) P athologist Signature Hemoglobin A1c, 6.7 (H) 4.0 - 5.6 05/02/2021 DTL B % 10:48 AM HARDWARE ENGINEER Comment: Hemoglobin A1c values greater than or eq ual to 6.5 percent are diagnostic for diabetes mellitus. ?? Diagnosis should be confirmed by repeat testing. ??In diabet ic patients, HbA1c goals should be discussed with healthcar e provider. Specimen Anatomical Collection Method Collection Time Receive d Time (Source) Location / / Volume Laterality Blood (Blood, 05/02/2021 10:07 05/02/2021 Venous) AM HARDWARE ENGINEER 10:27 AM HARDWARE ENGINEER Kristen Watts M.D. LAB BLOOD ADD-ON Performing Organization Address City/[facility]/ZIP [facility] Phon e Number [facility] - [address] [place] [address] Basic Metabolic Panel (05/02/2021 10:07 AM HARDWARE ENGINEER) P athologist Signature Potassium, S 4.1 3.6 - 5.2 05/02/2021 DTL mmol/L 11:21 AM HARDWARE ENGINEER Sodium, S 141 135 - 145 05/02/2021 DTL mmol/L 11:21 AM HARDWARE ENGINEER Chloride, S 103 98 - 107 05/02/2021 DTL mmol/L 11:21 AM HARDWARE ENGINEER Bicarbonate, S 26 22 - 29 05/02/2021 DTL mmol/L 11:21 AM HARDWARE ENGINEER Anion Gap 12 7 - 15 05/02/2021 DTL 11:21 AM HARDWARE ENGINEER BUN (Blood Urea 12 6 - 21 05/02/2021 DTL Nitrogen), S mg/dL 11:21 AM HARDWARE ENGINEER Creatinine 0.92 0.59 - 05/02/2021 DTL 1.04 mg/dL 11:21 AM HARDWARE ENGINEER eGFR-Non 66 >=60 05/02/2021 DTL Black/ mL/min/BSA 11:21 AM HARDWARE ENGINEER Senegalese Comment: ----ADDITIONAL INFORMATION---- Estimated GFR calculated using the 2009 CKD_EPI creatinine equation. eGFR-Black/ 76 >=60 mL/min/BSA 2021 11:21 AM HARDWARE ENGINEER DTL Comment: ----ADDITIONAL INFORMATION---- Estimated GFR calculated using the 2009 CKD_EPI creatinine equation. Calcium, Total, S 9.3 8.8 - 10.2 mg/dL 05/02/2021 11:2 1 AM HARDWARE ENGINEER DTL Glucose, S 128 70 - 140 mg/dL 05/02/2021 11:21 AM HARDWARE ENGINEER DTL Specimen Anatomical Collection Method Collection Time Receive d Time (Source) Location / / Volume Laterality Blood (Blood, 05/02/2021 10:07 05/02/2021 Venous) AM HARDWARE ENGINEER 10:54 AM HARDWARE ENGINEER Kristen Watts M.D. LAB BLOOD ADD-ON Performing Organization Address City/State/ZIP Code Phon e Number [facility] - [address] [place], [place] [address] [facility] [place] [address] Laboratories-[facility] [address] documented in this encounter Visit Diagnoses Diagnosis Mass Kidney - Primary Other Polyuria Diabetes Mellitus Type 2 (HCC) Mass Kidney Other Polyuria Feeling Of Incomplete Bladder Emptying Frequency Urinary documented in this encounter Additional Health Concerns Assessment Noted Time PHQ-9 Depression Total Score: 11 05/04/2013 4:05 PM CS T documented as of this encounter Care Teams Ointment Mill Tender Relationship Specialty Start Date End Date Elsewhere, Pcp PCP - General Internal Medicine 07/27/18 documented as of this encounter
--- OUTSIDE RECORDS SUMMARY | 2022-01-08 16:37 | XMS_ITS | Encounter Summary ---
:1955 Author Organization [facility] Address [address] [place] [address] Care Team Providers Name Role Phone Elsewhere, Pcp Primary Care Provider Unavailable Encounter Details Date Type Department Care Team Description 02/06/2021 Clinical Communication Department of Urology Stacy Mathias in Bess Velas[place] [address] [place] [address] Social History Tobacco Use Types Packs/Day Years [...] do you attend confucianist or Never 2018 hoahaoism services? Do you [...] diary prior to a visit, thank you! CAL INSTRUMENTS SUPERVISOR Telephone Encounter - Valerie Stallworth - 02/06/2021 12:20 PM CST ~ Place needed orders Patient has referral for Polyuria, pt has orders for follow up visit and CT abdomen. Advise on additional testing needed for follow up with new indication. Thank you, CAL INSTRUMENTS SUPERVISOR documented in this encounter Plan of Treatment Not on filedocumented as of this encounter Visit Diagnoses Not on filedocumented in this encounter Additional Health Concerns Assessment Noted Time PHQ-9 Depression Total Score: 05/04/2013 4:05 PM CS T documented as of this encounter Care Teams Electrical Troubleshooter Relationship Specialty Start Date End Date Elsewhere, Pcp PCP - General Internal Medicine 07/27/18 documented as of this encounter
--- OUTSIDE RECORDS SUMMARY | 2022-01-08 16:37 | XMS_ITS | Encounter Summary ---
:1955 Author Organization [facility] Address [address] [place] [address] Care Team Providers Name Role Phone Elsewhere, Pcp Primary Care Provider Unavailable Reason for Referral MRI/CAT/PET Scan (Routine) - Canceled Specialty Diagnoses / Procedures Referred By Contact Refer red To Contact Radiology Diagnoses Mass Kidney Geeta Rodriguez M.D. [place] [facility] Procedures CT Abdomen Pelvis with IV Contrast [address] [place] [phone] Referral ID Status Reason Start Date Expiration Date Visits V isits Requested Authorized [id number] Canceled 03/30/2020 03/30/2021 1 1 AL AND STOCK ASSOCIATE Reason for Visit MRI/CAT/PET Scan (Routine) - Canceled Specialty Diagnoses / Procedures Referred By Contact Refer steven To Contact Radiology Diagnoses Mass Kidney Geeta Rodriguez M.D. [facility] Procedures CT Abdomen Pelvis with IV Contrast [address] [place] [address] Referral ID Status Reason Start Date Expiration Date Visits V isits Requested Authorized [id number] Canceled 03/30/2020 03/30/2021 1 1 Encounter Details Date Type Department Care Team Description 03/30/2020 Hospital Encounter Department of Radiology, eGeta Rodriguez Mass Kidney leandro Sagastume M.D. [place], [place] [address] [place] [address] Social History Tobacco Use Types Packs/Day [...] do you attend sikh or Never 2018 caodaism services? Do you [...] documented as of this encounter Care Teams Futures Trader Relationship Specialty Start Date End Date Elsewhere, Pcp PCP - General Internal Medicine 07/27/18 documented as of this encounter
--- OUTSIDE RECORDS SUMMARY | 2022-01-08 16:37 | XMS_ITS | Encounter Summary ---
:1955 Author Organization [facility] Address [address] [place] [address] Care Team Providers Name Role Phone Elsewhere, Pcp Primary Care Provider Unavailable Reason for Referral Outpatient (Routine) - Authorized Specialty Diagnoses / Procedures Referred By Contact Refer red To Contact Diagnoses Flutter Atrial (HCC) [facility] Heart Rhythm Monitor (Holter) M.DEdilma [address] [place] [address] Referral ID Status Reason Start Date Expiration Date Visits V isits Requested Authorized [id number] Authorized 01/30/2021 01/30/2022 1 1 ING PIPE MOUNTER Reason for Visit Outpatient (Routine) - Authorized Specialty Diagnoses / Procedures Referred By Contact Refer red To Contact Diagnoses Flutter Atrial (HCC) Atrial Fibrillation Paroxysmal (HCC) [facility] Procedures ECG Heart Rhythm Monitor (Holter) M.DEdilma [address] [place] [address] Referral ID Status Reason Start Date Expiration Date Visits V isits Requested Authorized [id number] Authorized 01/30/2021 01/30/2022 1 1 Encounter Details Date Type Department Care Team Description 02/27/2021 Hospital Encounter Department of Siontis, Flutter Atrial (HCC); Cardiovascular Diseases Pacheco [place] iasixto Fibrillation Paroxysmal (HCC) in [facility] nasim Kellogg 200 [facility] [address] [place] [address] [phone] Social History Tobacco Use Types Packs/Day Years [...] do you attend congregational or Never 2018 mu-ism services? Do you [...] 03/01/2021 9:47 PM Flutter A trial ([facility]) Results for this CLINIC LOOP PULLER SMOKING PIPE MOUNTER Atrial Fibrillation proced ure are in Paroxysmal ([facility]) the results section. documented in this encounter Results HOLTER MONITOR - IN CLINIC LOOP PULLER (03/01/2021 9:47 PM SMOKING PIPE MOUNTER) [facility] gist Method Time Signature Min Heart [...] AF Duration 0 duration INFOBIONIC MOME AF [place] 0 percent INFOBIONIC MOME Symptom Count 1 count INFOBIONIC MOME Specimen (Source) Anatomical Collection Method Collection Time Re ceived Time Location / / Volume Laterality 02/27/2021 1:24 PM SMOKING PIPE MOUNTER Narrative INFOBIONIC MOME - 03/04/2021 10:59 AM [...] No ectopy was seen around this time. Scrubber Machine Tender: Jair Little/Solange Momin Procedure Note Peyman Cole [...] No ectopy was seen around this time. Scrubber Machine Tender: Jair Little/Solange Momin Porfirio Villegas M.D. CV [...] documented as of this encounter Care Teams Transfer Driver Relationship Specialty Start Date End Date Elsewhere, Pcp PCP - General Internal Medicine 07/27/18 documented as of this encounter
--- NOTE | 2022-01-08 16:38 | ED.NURSE ---
Radiology in with patient for xray.
--- OUTSIDE RECORDS SUMMARY | 2022-01-08 16:38 | XMS_ITS | Encounter Summary ---
:1955 Author Organization [facility] Address [address] [place] [address] Care Team Providers Name Role Phone Elsewhere, Pcp Primary Care Provider Unavailable Reason for Referral MRI/CAT/PET Scan (Routine) - Closed Specialty Diagnoses / Procedures Referred By Contact Refer red To Contact Radiology Diagnoses Nodule Pulmonary Harish Harkins M.D. [facility] Procedures CT Chest without IV Contrast [address] [place] [address] Referral ID Status Reason Start Date Expiration Date Visits Requ ested Visits Authorized [id number] Closed 03/20/2020 03/20/2021 1 1 R CORE MACHINE OPERATOR Reason for Visit MRI/CAT/PET Scan (Routine) - Closed Specialty Diagnoses / Procedures Referred By Contact Refer red To Contact Radiology Diagnoses Nodule Pulmonary Harish Harkins M.D. [facility] Procedures CT Chest without IV Contrast [address] [place] [address] Referral ID Status Reason Start Date Expiration Date Visits Requ ested Visits Authorized [id number] Closed 03/20/2020 03/20/2021 1 1 Encounter Details Date Type Department Care Team Description 03/30/2020 Hospital Encounter Department of Harish Harkins Nodu le Pulmonary RadiologyGarett M.D. Building, in 200 [place], [place] 200 [facility] [address] [place], [place] [phone] (Work) [phone] Social History Tobacco Use Types Packs/Day Years [...] do you attend episcopal or Never 2018 latter day services? Do [...] for this IV CONTRAST (most inpatients AM PAPER CORE MACHINE OPERATOR procedure a re in and all the results outpatients) section. documented in this encounter Results CT Chest without IV Contrast (03/30/2020 10:26 AM PAPER CORE MACHINE OPERATOR) Anatomical Region Laterality Modality Chest, Thoracic RST LOS, Thoracic ARZ N/A Co mputed Tomography, Computed LOS, Thoracic FLA LOS Tomography Specimen (Source) Anatomical Collection Method Collection Time Re ceived Time Location / / Volume Laterality 03/30/2020 10:59 AM PAPER CORE MACHINE OPERATOR Impressions 03/30/2020 12:08 PM PAPER CORE MACHINE OPERATOR 1. Decrease in size of the left [...] recommendations are attached. Narrative 03/30/2020 12:08 PM PAPER CORE MACHINE OPERATOR EXAM: CT CHEST WITHOUT IV CONTRAST COMPARISON: [...] documented as of this encounter Care Teams Flight Crew Scheduler Relationship Specialty Start Date End Date Elsewhere, Pcp PCP - General Internal Medicine 07/27/18 documented as of this encounter
--- OUTSIDE RECORDS SUMMARY | 2022-01-08 16:38 | XMS_ITS | Encounter Summary ---
:1955 Author Organization [facility] Address [address] [place] [address] Care Team Providers Name Role Phone Elsewhere, Pcp Primary Care Provider Unavailable Reason for Visit Outpatient (Routine) - Closed Specialty Diagnoses / Procedures Referred By Referred To Contact Contact Cardiovascular Diseases / Diagnoses Flutter Atrial (HCC) Atrial Fibrillation Paroxysmal (HCC) [facility] [address] [place] [phone] Referral ID Status Reason Start Date Expiration Date Visits Requ ested Visits Authorized [id number] Closed 04/21/2019 04/20/2020 1 1 Encounter Details Date Type Department Care Team Description 08/19/2019 Office Visit Department of Naren Arroyo M.D. Flutter Atrial (HCC); Cardiovascular Medicine Porfirio Villegas M.D. [address] [place] [phone] Atrial Fibrillation Paroxysmal (HCC) in [facility] [address] [place] [phone] Social History Tobacco Use Types [...] do you attend sikh or Never 2018 muslim services? Do you [...] documented as of this encounter Care Teams Welder Fitter Helper Relationship Specialty Start Date End Date Elsewhere, Pcp PCP - General Internal Medicine 07/27/18 documented as of this encounter
--- OUTSIDE RECORDS SUMMARY | 2022-01-08 16:38 | XMS_ITS | Encounter Summary ---
:1955 Author Organization [facility] Address [address] [place] [address] Care Team Providers Name Role Phone Elsewhere, Pcp Primary Care Provider Unavailable Reason for Visit Reason Comments Request for records Encounter Details Date Type Department Care Team Description 01/05/2020 Clinical Communication Department of Regine Gonzalez for records Urology in Zac Perez M.D. [place], [place] [address] [place] [address] Social History Tobacco Use Types [...] do you attend baptist or Never 2018 orthodox services? Do you [...] AM CDT Request for records faxed to [employer] Release of Information - FAX: [phone]. documented in this encounter Plan of Treatment Not on filedocumented as of this encounter Visit Diagnoses Not on filedocumented in this encounter Additional Health Concerns Assessment Noted Time PHQ-9 Depression Total Score: 11 05/04/2013 4:05 PM CS T documented as of this encounter Care Teams Electorate Officer Relationship Specialty Start Date End Date Elsewhere, Pcp PCP - General Internal Medicine 07/27/18 documented as of this encounter
--- OUTSIDE RECORDS SUMMARY | 2022-01-08 16:38 | XMS_ITS | Encounter Summary ---
:1955 Author Organization [facility] Address [address] [place] [address] Care Team Providers Name Role Phone Elsewhere, Pcp Primary Care Provider Unavailable Reason for Referral Outpatient (Routine) - Closed Specialty Diagnoses / Procedures Referred By Contact Refer red To Contact Urology Zac Kuo M.D. [facility] 200 [place] [address] Referral ID Status Reason Start Date Expiration Date Visits Requ ested Visits Authorized [id number] Closed 01/05/2020 01/04/2021 1 1 Reason for Visit Appointment Request (Routine) - Closed Specialty Diagnoses / Procedures Referred By Contact Refer steven To Contact Urology Diagnoses Carcinoma Renal Cell Left (HCC) Kandace Mckeon D.O. [address] [place] [address] Referral ID Status Reason Start Date Expiration Date Visits Requ ested Visits Authorized [id number] Closed 12/28/2019 12/27/2020 1 1 Encounter Details Date Type Department Care Team Description 01/04/2020 Comprehensive Visit Department of Dane Kuo (Primary Dx); Urology in Zac Perez M.D. Chronic Obst ructive Pulmonary Disease Exacerbation (HCC) [place], [place] [address] [place] [phone] Social History Tobacco Use Types Packs/Day Years [...] do you attend sabianism or Never 2018 sikhism services? Do you [...] at the request of Kandace Mckeon D.O. [address] [place], [place] [phone] CHIEF COMPLAINT Renal mass FURNACE CONVERTER calendar HISTORY OF PRESENT ILLNESS Ms. 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 she walks with [...] Name Type Priority Associated Diagnoses Order S [facility] Urology office Outpatient Referral Routine Expect ed: visit (clinic) 04/06/2020 (Approximate), Expires: 01/04/2023 documented as of this encounter Results (ABNORMAL) Basic Metabolic Panel (03/30/2020 3:11 PM CLOTHING PRESSER) P athologist Signature Potassium, S 3.5 (L) 3.6 - 5.2 03/30/2020 DTL mmol/L 5:05 PM CLOTHING PRESSER Sodium, S 144 135 - 145 03/30/2020 DTL mmol/L 5:05 PM CLOTHING PRESSER Chloride, S 104 98 - 107 03/30/2020 DTL mmol/L 5:05 PM CLOTHING PRESSER Bicarbonate, S 28 22 - 29 03/30/2020 DTL mmol/L 5:05 PM CLOTHING PRESSER Anion Gap 12 7 - 15 03/30/2020 DTL 5:05 PM CLOTHING PRESSER BUN (Blood Urea 7 6 - 21 03/30/2020 DTL Nitrogen), S mg/dL 5:05 PM CLOTHING PRESSER Creatinine 0.99 0.59 - 03/30/2020 DTL 1.04 mg/dL 5:05 PM CLOTHING PRESSER eGFR-Non 61 >=60 03/30/2020 DTL Black/ mL/min/BSA 5:05 PM CLOTHING PRESSER Estonian Comment: ----ADDITIONAL INFORMATION---- Estimated GFR calculated using the 2009 CKD_EPI creatinine equation. eGFR-Black/ 70 >=60 mL/min/BSA 2020 5:05 PM CLOTHING PRESSER DTL Comment: ----ADDITIONAL INFORMATION---- Estimated GFR calculated using the 2009 CKD_EPI creatinine equation. Calcium, Total, S 9.1 8.8 - 10.2 mg/dL 03/30/2020 5:05 PM CLOTHING PRESSER DTL Glucose, S 148 (H) 70 - 140 mg/dL 03/30/2020 5:05 PM CLOTHING PRESSER D TL Specimen Anatomical Collection Method Collection Time Receive d Time (Source) Location / / Volume Laterality Blood (Blood, 03/30/2020 3:11 PM 03/30/19 3:34 Venous) CLOTHING PRESSER PM CLOTHING PRESSER Zac Kuo M.D. LAB BLOOD ADD-ON Performing Organization Address City/State/ZIP Code Phon e Number [facility] - [address] [place], [place] [address] [facility] [place] [address] Laboratories-[facility] [address] documented in this encounter Visit Diagnoses Diagnosis Mass Kidney - Primary Chronic Obstructive Pulmonary Disease Ex acerbation (HCC) documented in this encounter Additional Health Concerns Assessment Noted Time PHQ-9 Depression Total Score: 11 05/04/2013 4:05 PM CS T documented as of this encounter Care Teams Insurance Underwriter Relationship Specialty Start Date End Date Elsewhere, Pcp PCP - General Internal Medicine 07/27/18 documented as of this encounter
--- OUTSIDE RECORDS SUMMARY | 2022-01-08 16:38 | XMS_ITS | Encounter Summary ---
:1955 Author Organization [facility] Address [address] [place] [address] Care Team Providers Name Role Phone Elsewhere, Pcp Primary Care Provider Unavailable Reason for Referral Outpatient (Routine) - Closed Specialty Diagnoses / Procedures Referred By Contact Refer red To Contact Diagnoses Flutter Atrial (HCC) Atrial Fibrillation Paroxysmal (HCC) Tucker Rutherford P.A.-C. [facility] Procedures Echo Transthoracic (TTE) [address] [place] [address] Referral ID Status Reason Start Date Expiration Date Visits Requ ested Visits Authorized [id number] Closed 04/21/2019 04/20/2020 1 1 Reason for Visit Outpatient (Routine) - Closed Specialty Diagnoses / Procedures Referred By Contact Refer red To Contact Diagnoses Flutter Atrial (HCC) Atrial Fibrillation Paroxysmal (HCC) Tucker Rutherford P.A.-C. [facility] Procedures Echo Transthoracic (TTE) [address] [place] [address] Referral ID Status Reason Start Date Expiration Date Visits Requ ested Visits Authorized [id number] Closed 04/21/2019 04/20/2020 1 1 Encounter Details Date Type Department Care Team Description 08/19/2019 Hospital Department of Hirn, Tucker Flutter Atria l (HCC); Encounter Cardiovascular Brian Caballero Atrial Fibrillation Paroxysmal (HCC) Diseases in [place], [facility] [address] [place], [place] [address] [address] [place], [place] [phone] (Work) [phone] Social History Tobacco Use Types Packs/Day Years [...] or relatives? How often do you attend congregation or Never 2018 bahai services? Do you belong to any clubs or No 02/26/2019 organizations such as congregation groups, unions, fraternal or athletic groups, or [...] layer. For the complete report, see the [facility]. Narrative 08/19/2019 1:52 PM CDT For the complete report, see the [facility]. Final Impressions 1. Echocardiogram performed per [...] 08/19/2019 For the complete report, see the [facility]. Final Impressions 1. Echocardiogram performed per [...] as of this encounter Care Teams Insurance Analyst Relationship Specialty Start Date End Date Elsewhere, Pcp PCP - General Internal Medicine 07/27/18 documented as of this encounter
--- OUTSIDE RECORDS SUMMARY | 2022-01-08 16:38 | XMS_ITS | Encounter Summary ---
:1955 Author Organization [facility] Address [address] [place] [address] Care Team Providers Name Role Phone Elsewhere, Pcp Primary Care Provider Unavailable Encounter Details Date Type Department Care Team Description 12/30/2019 Clinical Communication Department of Urology Zac Gonzalez in [place] [address] [place] [address] Social History Tobacco Use Types Packs/Day Years [...] do you attend congregational or Never 2018 yazdanism services? Do you [...] Microscopic: Urine, Midstream (01/04/2020 12:26 PM CDT) [facility] Method Time Signature Source Midstream 01/04/2020 FREDY 12:26 PM CDT Appearance Normal Normal 01/04/2020 FREDY 1:38 PM CDT Osmolality, U 483 150 - 1150 01/04/2020 FREDY mOsm/kg 1:24 PM CDT pH, U 5.4 4.5 - 8.0 01/04/2020 FREDY 1:24 PM CDT Comment: ----ADDITIONAL INFORMATION---- This test was developed and its performa nce characteristics determined by [facility] in a manner co nsistent with CLIA [...] Organization Address City/State/ZIP Code Phon e Number ED [facility] - [address] [place], [place] [address] [facility] [place] [address] Laboratories-[facility] [address] DX Chest [...] e Number [facility] - 200 [place], [place] [address] [place], [place] [address] [address] (ABNORMAL) ALT (Alanine Aminotransferase) (01/04/2020 10:58 AM CDT) [facility] Method Time Signature Alanine 56 (H) 7 - 45 01/04/2020 DTL Aminotransferase U/L 12:58 PM CDT (ALT), S Specimen Anatomical Collection Method Collection Time Receive d Time (Source) Location / / Volume Laterality Blood (Blood, 01/04/2020 10:58 01/04/2020 Venous) AM CDT 11:38 AM CDT Zac Gonzalez M.D. LAB BLOOD ADD-ON Performing Organization Address City/State/ZIP Code Phon e Number [facility] - [id number] [place] [address] AST (Aspartate Aminotransferase) (01/04/2020 10:58 AM CDT) [facility] Method Time Signature Aspartate 33 8 - 43 01/04/2020 DTL Aminotransferase U/L 12:58 PM CDT (AST), S Specimen Anatomical Collection Method Collection Time Receive d Time (Source) Location / / Volume Laterality Blood (Blood, 01/04/2020 10:58 01/04/2020 Venous) AM CDT 11:38 AM CDT Zac Gonzalez M.D. LAB BLOOD ADD-ON Performing Organization Address City/State/ZIP Code Phon e Number [facility] - 200 [place], [place] [address] [place] [address] Calcium, Total (01/04/2020 10:58 AM CDT) P athologist Signature Calcium, Total, 9.0 8.8 - 10.2 01/04/2020 DTL S mg/dL 12:58 PM CDT Specimen Anatomical Collection Method Collection Time Receive d Time (Source) Location / / Volume Laterality Blood (Blood, 01/04/2020 10:58 01/04/2020 Venous) AM CDT 11:38 AM CDT Zac Gonzalez M.D. LAB BLOOD ADD-ON Performing Organization Address City/State/ZIP Code Phon e Number ED [facility] - 200 [place], [place] [address] [facility] [place] [address] [facility] 200 [facility] (ABNORMAL) CBC with Differential, Blood (01/04/2020 10:58 AM CDT) [facility] Method Time Signature Hemoglobin 13.5 11.6 - [...] Organization Address City/State/ZIP Code Phon e Number ED [facility] - [address] [place], [place] [address] [facility] [address] Creatinine with Estimated GFR (01/04/2020 10:58 AM CDT) athologist Signature Creatinine 0.87 0.59 - 01/04/2020 DTL 1.04 mg/dL 12:58 PM CDT eGFR-Non 72 >=60 01/04/2020 DTL Black/ mL/min/BSA 12:58 PM CDT [place] Comment: ----ADDITIONAL INFORMATION---- [...] M.D. LAB BLOOD ADD-ON Performing Organization Address City/[facility]/ZIP Code Phon e Number ED [facility] - [address] [place], [place] [address] [place], [place] [id number] [place] [address] BUN (Blood Urea Nitrogen) (01/04/2020 10:58 [...] Organization Address City/State/ZIP Code Phon e Number ED [facility] - [address] [place], [place] [address] [facility] [place], [place] [phone] [place] [address] [address] [facility] Electrolyte (Chem 4) Panel (01/04/2020 10:58 AM [...] Organization Address City/State/ZIP Code Phon e Number ED [facility] - [address] [place], [place] [address] [facility] [place] [address] [facility]ly [facility] [address] [facility] documented in this encounter Visit Diagnoses Diagnosis Carcinoma Renal Cell Left (HCC) - Primar y Carcinoma Renal Cell Left (HCC) documented in this encounter Additional Health Concerns Assessment Noted Time PHQ-9 Depression Total Score: 11 05/04/2013 4:05 PM CS T documented as of this encounter Care Teams Production Planning Manager Relationship Specialty Start Date End Date Elsewhere, Pcp PCP - General Internal Medicine 07/27/18 documented as of this encounter
--- OUTSIDE RECORDS SUMMARY | 2022-01-08 16:38 | XMS_ITS | Encounter Summary ---
:1955 Author Organization [facility] Address [address] [place] [address] Care Team Providers Name Role Phone Elsewhere, Pcp Primary Care Provider Unavailable Encounter Details Date Type Department Care Team Description 01/13/2020 Clinical Communication Department of Urology Zac Gonzalez in [place] Velasco M.D[address] [phone] Social History Tobacco Use Types Packs/Day Years [...] do you attend confucianist or Never 2018 presybeterian services? Do you [...] they will be pushing Iris's MRI into [facility] system today. documented in this encounter Plan of Treatment Not on filedocumented as of this encounter Visit Diagnoses Not on filedocumented in this encounter Additional Health Concerns Assessment Noted Time PHQ-9 Depression Total Score: 11 05/04/2013 4:05 PM CS T documented as of this encounter Care Teams Spindle Frame Carver Relationship Specialty Start Date End Date Elsewhere, Pcp PCP - General Internal Medicine 07/27/18 documented as of this encounter
--- OUTSIDE RECORDS SUMMARY | 2022-01-08 16:38 | XMS_ITS | Encounter Summary ---
:1955 Author Organization [facility] Address [address] [place] [address] Care Team Providers Name Role Phone Elsewhere, Pcp Primary Care Provider Unavailable Reason for Referral Outpatient (Routine) - Closed Specialty Diagnoses / Procedures Referred By Contact Refer red To Contact Diagnoses Flutter Atrial (HCC) Atrial Fibrillation Paroxysmal (HCC) Tucker Rutherford P.A.-C. [facility] Procedures ECG Heart rhythm monitor (Holter) [address] [place] [address] Referral ID Status Reason Start Date Expiration Date Visits Requ ested Visits Authorized [id number] Closed 04/21/2019 04/20/2020 1 1 Reason for Visit Outpatient (Routine) - Closed Specialty Diagnoses / Procedures Referred By Contact Refer red To Contact Diagnoses Flutter Atrial (HCC) Atrial Fibrillation Paroxysmal (HCC) Tucker Rutherford P.A.-C. [facility] Procedures ECG Heart rhythm monitor (Holter) [address] [place] [address] Referral ID Status Reason Start Date Expiration Date Visits Requ ested Visits Authorized [id number] Closed 04/21/2019 04/20/2020 1 1 Encounter Details Date Type Department Care Team Description 08/18/2019 Hospital Department of Tucker Rutherford Flutter Atria l (HCC); Encounter Cardiovascular Brian Caballero Atrial Fibrillation Paroxysmal (HCC) Diseases in [place], [facility] [address] [place], [place] [address] [place], [place] [phone] [phone] (Work) [phone] Social History Tobacco Use Types Packs/Day Years [...] do you attend scientologist or Never 2018 voodoo services? Do you [...] Atr ial (HCC) Results for this CLINIC FURNITURE STAINER AM CDT Atrial Fibrillation proced ure are in Paroxysmal (HCC) the results section. documented in this encounter Results HOLTER MONITOR - IN CLINIC FURNITURE STAINER (08/18/2019 10:48 AM CDT) [facility] gist Method Time Signature SVE Max [...] 0 count HOLTER Runs SENTINEL Analysis Date ,200,529 HOLTER SENTINEL Min Heart Rate 54 bpm HOLTER SENTINEL VE Max Per HOLTER Hour Time SENTINEL SVE Percent 0 percent HOLTER Beats SENTINEL VE Max Per 1 count HOLTER Hour SENTINEL Max Heart Rate [id number] HOLTER Time SENTINEL Specimen (Source) Anatomical Collection [...] as of this encounter Care Teams Health Officer Relationship Specialty Start Date End Date Elsewhere, Pcp PCP - General Internal Medicine 07/27/18 documented as of this encounter
--- OUTSIDE RECORDS SUMMARY | 2022-01-08 16:38 | XMS_ITS | Encounter Summary ---
:1955 Author Organization [facility] Address [address] [place] [address] Care Team Providers Name Role Phone Elsewhere, Pcp Primary Care Provider Unavailable Encounter Details Date Type Department Care Team Description 01/04/2020 Hospital Encounter Department of Zac Gonzalez Renal Cell Laboratory Medicine CBess Left (HC C) and Pathology, [facility] in [place], [place] [address] [place] [address] Social History Tobacco Use Types Packs/Day Years [...] do you attend orthodox or Never 2018 restoration services? Do you [...] Address City/State/ZIP Code Phon e Number [facility] - [address] [place], [place] [address] [facility] [place] [address] Laboratories-[facility] [address] (ABNORMAL) ALT (Alanine Aminotransferase) [...] Address City/State/ZIP Code Phon e Number [facility] - [address] [place], [place] [address] [facility] [address] AST (Aspartate Aminotransferase) (01/04/2020 10:58 AM CDT) Patholo gist Method Time Signature Aspartate 33 8 - 43 01/04/2020 DTL Aminotransferase U/L 12:58 PM CDT (AST), S Specimen Anatomical Collection Method Collection Time Receive d Time (Source) Location / / Volume Laterality Blood (Blood, 01/04/2020 10:58 01/04/2020 Venous) AM CDT 11:38 AM CDT Zac Gonzalez M.D. LAB BLOOD ADD-ON Performing Organization Address City/[facility]/ZIP Code Phon e Number [facility] - [address] [place], [place] [address] [facility] [place] [address] [place] [address] [facility] Calcium, Total (01/04/2020 10:58 AM CDT) P athologist Signature Calcium, Total, 9.0 8.8 - 10.2 01/04/2020 DTL S mg/dL 12:58 PM CDT Specimen Anatomical Collection Method Collection Time Receive d Time (Source) Location / / Volume Laterality Blood (Blood, 01/04/2020 10:58 01/04/2020 Venous) AM CDT 11:38 AM CDT Zac Gonzalez M.D. LAB BLOOD ADD-ON Performing Organization Address City/State/ZIP Code Phon e Number [facility] - [address] [place], [place] [address] [facility] [place] [address] [place] [address] [facility] (ABNORMAL) CBC with Differential, Blood (01/04/2020 10:58 AM CDT) [facility] gist Method Time Signature Hemoglobin 13.5 [...] Address City/State/ZIP Code Phon e Number [facility] - [address] [place], [place] [address] [facility] [address] [facility] [address] Creatinine with Estimated GFR (01/04/2020 10:58 AM CDT) athologist Signature Creatinine 0.87 0.59 - 01/04/2020 DTL 1.04 mg/dL 12:58 PM CDT eGFR-Non 72 >=60 01/04/2020 DTL Black/ mL/min/BSA 12:58 PM CDT Uzbek Comment: ----ADDITIONAL INFORMATION---- Estimated GFR calculated using [...] M.D. LAB BLOOD ADD-ON Performing Organization Address City/[facility] Phon e Number [facility] - [address] BUN (Blood Urea Nitrogen) (01/04/2020 10:58 AM CDT) athologist Signature BUN (Blood Urea 9 6 - 21 01/04/2020 DTL Nitrogen), S mg/dL 12:58 PM CDT Specimen Anatomical Collection Method Collection Time Receive d Time (Source) Location / / Volume Laterality Blood (Blood, 01/04/2020 10:58 01/04/2020 Venous) AM CDT 11:38 AM CDT Zac Gonzalez M.D. LAB BLOOD ADD-ON Performing Organization Address City/State/[facility] Phon e Number [facility] - [address] Electrolyte (Chem 4) Panel (01/04/2020 10:58 [...] Address City/State/ZIP Code Phon e Number [facility] - [address] [place], [place] [address] [facility] [address] [facility] [address] documented in this encounter Visit Diagnoses Diagnosis Carcinoma Renal Cell Left (HCC) documented in this encounter Additional Health Concerns Assessment Noted Time PHQ-9 Depression Total Score: 11 05/04/2013 4:05 PM CS T documented as of this encounter Care Teams Assessment Manager Relationship Specialty Start Date End Date Elsewhere, Pcp PCP - General Internal Medicine 07/27/18 documented as of this encounter
--- OUTSIDE RECORDS SUMMARY | 2022-01-08 16:38 | XMS_ITS | Encounter Summary ---
:1955 Author Organization [facility] Address [address] [place] [address] Care Team Providers Name Role Phone Elsewhere, Pcp Primary Care Provider Unavailable Encounter Details Date Type Department Care Team Description 01/04/2020 Hospital Encounter Department of Zac Gonzalez Renal Cell Radiology, [place] [facility] Perez [facility], in [place], [place] [address] [place] [address] Social History Tobacco Use Types Packs/Day Years [...] do you attend bahai or Never 2018 quaker services? Do you [...] documented as of this encounter Care Teams Intelligence Support Officer Relationship Specialty Start Date End Date Elsewhere, Pcp PCP - General Internal Medicine 07/27/18 documented as of this encounter
--- OUTSIDE RECORDS SUMMARY | 2022-01-08 16:38 | XMS_ITS | Encounter Summary ---
:1955 Author Organization [facility] Address [address] [place] [address] Care Team Providers Name Role Phone Elsewhere, Pcp Primary Care Provider Unavailable Encounter Details Date Type Department Care Team Description 01/04/2020 Hospital Encounter Department of Zac Gonzalez Renal Cell Laboratory Medicine CBess Left (HC C) and Pathology, [facility] in [place], [place] [address] [place] [address] Social History Tobacco Use Types Packs/Day Years [...] do you attend evangelical or Never 2018 latter day services? Do [...] Organization Address City/State/ZIP Code Phon e Number [facility] - [address] [place] [address] [facility] [place] [address] Laboratories-[address] (ABNORMAL) Urinalysis with Microscopic: Urine, Midstream (01/04/2020 12:26 PM CDT) [facility] gist Method Time Signature Source Midstream 01/04/2020 FREDY 12:26 PM CDT Appearance Normal Normal 01/04/2020 FREDY 1:38 PM CDT Osmolality, U 483 150 - 1150 01/04/2020 FR[place] mOsm/kg 1:24 PM CDT pH, U 5.4 4.5 - 8.0 01/04/2020 FREDY 1:24 PM CDT Comment: ----ADDITIONAL INFORMATION---- This test was developed and its performa nce characteristics determined by [facility] in a manner co nsistent with CLIA [...] Organization Address City/State/ZIP Code Phon e Number [facility] - [address] [place], [place] [address] [place] [address] [facility] [address] documented in this encounter Visit Diagnoses Diagnosis Carcinoma Renal Cell Left (HCC) documented in this encounter Additional Health Concerns Assessment Noted Time PHQ-9 Depression Total Score: 11 05/04/2013 4:05 PM CS T documented as of this encounter Care Teams Underwriting Support Manager Relationship Specialty Start Date End Date Elsewhere, Pcp PCP - General Internal Medicine 07/27/18 documented as of this encounter
--- OUTSIDE RECORDS SUMMARY | 2022-01-08 16:38 | XMS_ITS | Encounter Summary ---
:1955 Author Organization [facility] Address [address] [place] [address] Care Team Providers Name Role Phone Elsewhere, Pcp Primary Care Provider Unavailable Reason for Visit Reason Comments NERIS Nurse Line Encounter Details Date Type Department Care Team Description 03/20/2020 Clinical Communication Division of NERIS Harkins Nurse Bianca Pulmonary Medicine Bess Moreira in [place], [address] [place] [address] [place] [address] [place], [place] [phone] (Work) [phone] Social History Tobacco Use Types Packs/Day Years [...] do you attend buddhism or Never 2018 church services? Do you [...] - 03/20/2020 4:16 PM CST (RST and [place] [facility] locations only: If the patient is not having symptoms and is requesting COVID-19 Nasal Swab testing only, use the process listed in the COVID-19 Patient Requesting COVID PCR Test OTG COVID-19 [place] Patient Requesting COVID PCR Test). In the past 20 days have you had a swab for COVID that tested positive? no Route reply to: justynt pul appt office/vl Scheduling Contact Number: [phone] NT ACQUISITION COORDINATOR documented in this encounter Plan of Treatment Not on filedocumented as of this encounter Visit Diagnoses Not on filedocumented in this encounter Additional Health Concerns Assessment Noted Time PHQ-9 Depression Total Score: 11 05/04/2013 4:05 PM CS T documented as of this encounter Care Teams Paste Mixer Relationship Specialty Start Date End Date Elsewhere, Pcp PCP - General Internal Medicine 07/27/18 documented as of this encounter
--- OUTSIDE RECORDS SUMMARY | 2022-01-08 16:38 | XMS_ITS | Encounter Summary ---
:1955 Author Organization [facility] Address [address] [place] [address] Care Team Providers Name Role Phone Elsewhere, Pcp Primary Care Provider Unavailable Encounter Details Date Type Department Care Team Description 03/30/2020 Hospital Encounter Department of Laboratory Geeta Rodriguez [facility] [place], [place] [address] [place] [address] Social History Tobacco Use Types Packs/Day [...] do you attend congregational or Never 2018 yarsanism services? Do you [...] Kidney Results for this DIFFERENTIAL, B PM NURSERY RN procedure ar e in the results section. ALANINE AMINOTRANSFERASE Routine 03/30/2020 3:11 Mass Kidney Results for this (ALT), S/P PM NURSERY RN procedure are i n the results section. ASPARTATE Routine 03/30/2020 3:11 Mass Kidney Results for this AMINOTRANSFERASE (AST), PM NURSERY RN proc edure are in S/P the results section. ALKALINE PHOSPHATASE, Routine 03/30/2020 3:11 Mass Kidney Res ults for this S/P PM NURSERY RN procedure are i n the results section. BASIC METABOLIC PANEL, Routine 03/30/2020 3:11 Mass Kidney Re sults for this S/P PM NURSERY RN procedure are i n the results section. documented in this encounter Results (ABNORMAL) CBC without Differential (03/30/2020 3:11 PM NURSERY RN) [facility] Method Time Signature Hemoglobin 13.9 11.6 - 03/30/2020 DTL 15.0 g/dL 3:44 PM NURSERY RN Hematocrit 42.8 35.5 - 03/30/2020 DTL 44.9 % 3:44 PM NURSERY RN Erythrocytes 4.58 3.92 - 03/30/2020 DTL 5.13 3:44 PM NURSERY RN x10(12)/L MCV 93.4 78.2 - 03/30/2020 DTL 97.9 fL 3:44 PM NURSERY RN RBC Distrib Width 12.5 12.2 - 03/30/2020 DTL 16.1 % 3:44 PM NURSERY RN Platelet Count 481 (H) 157 - 371 03/30/2020 DTL x10(9)/L 3:44 PM NURSERY RN Leukocytes 10.9 (H) 3.4 - 9.6 03/30/2020 DTL x10(9)/L 3:44 PM NURSERY RN Specimen Anatomical Collection Method Collection Time Receive d Time (Source) Location / / Volume Laterality Blood (Blood, 03/30/2020 3:11 PM 03/30/19 21 3:34 Venous) NURSERY RN PM NURSERY RN Geeta Ware M.D. LAB BLOOD ADD-ON Performing Organization Address City/State/ZIP Code Phon e Number [facility] - [address] [place], [place] [address] [place] [address] [facility] [address] ALT (Alanine Aminotransferase) (03/30/2020 3:11 PM NURSERY RN) [facility] Method Time Signature Alanine 27 7 - 45 03/30/2020 DTL Aminotransferase U/L 5:05 PM NURSERY RN (ALT), S Specimen Anatomical Collection Method Collection Time Receive d Time (Source) Location / / Volume Laterality Blood (Blood, 03/30/2020 3:11 PM 03/30/19 3:34 Venous) NURSERY RN PM NURSERY RN Geeta Ware M.D. LAB BLOOD ADD-ON Performing Organization Address City/[facility]/ZIP [facility] Phon e Number [facility] - [address] [place], [place] [address] [place] [address] AST (Aspartate Aminotransferase) (03/30/2020 3:11 PM NURSERY RN) Patholo gist Method Time Signature Aspartate 22 8 - 43 03/30/2020 DTL Aminotransferase U/L 5:05 PM NURSERY RN (AST), S Specimen Anatomical Collection Method Collection Time Receive d Time (Source) Location / / Volume Laterality Blood (Blood, 03/30/2020 3:11 PM 03/30/19 3:34 Venous) NURSERY RN PM NURSERY RN Geeta Ware M.D. LAB BLOOD ADD-ON Performing Organization Address City/[facility] Code Phon e Number [facility] - [address] (ABNORMAL) Alkaline Phosphatase (03/30/2020 3:11 PM NURSERY RN) P athologist Signature Alkaline 116 (H) 35 - 104 03/30/2020 DTL Phosphatase, S U/L 5:05 PM NURSERY RN Specimen Anatomical Collection Method Collection Time Receive d Time (Source) Location / / Volume Laterality Blood (Blood, 03/30/2020 3:11 PM 03/30/19 3:34 Venous) NURSERY RN PM NURSERY RN Geeta Ware M.D. LAB BLOOD ADD-ON Performing Organization Address City/[facility] Phon e Number [facility] - [address] (ABNORMAL) Basic Metabolic Panel (03/30/2020 3:11 PM NURSERY RN) P athologist Signature Potassium, S 3.5 (L) 3.6 - 5.2 03/30/2020 DTL mmol/L 5:05 PM NURSERY RN Sodium, S 144 135 - 145 03/30/2020 DTL mmol/L 5:05 PM NURSERY RN Chloride, S 104 98 - 107 03/30/2020 DTL mmol/L 5:05 PM NURSERY RN Bicarbonate, S 28 22 - 29 03/30/2020 DTL mmol/L 5:05 PM NURSERY RN Anion Gap 12 7 - 15 03/30/2020 DTL 5:05 PM NURSERY RN BUN (Blood Urea 7 6 - 21 03/30/2020 DTL Nitrogen), S mg/dL 5:05 PM NURSERY RN Creatinine 0.99 0.59 - 03/30/2020 DTL 1.04 mg/dL 5:05 PM NURSERY RN eGFR-Non 61 >=60 03/30/2020 DTL Black/ mL/min/BSA 5:05 PM NURSERY RN Sierra Leonean Comment: ----ADDITIONAL INFORMATION---- Estimated GFR calculated using the 2009 CKD_EPI creatinine equation. eGFR-Black/ 70 >=60 mL/min/BSA 2020 5:05 PM NURSERY RN DTL Comment: ----ADDITIONAL INFORMATION---- Estimated GFR calculated using the 2009 CKD_EPI creatinine equation. Calcium, Total, S 9.1 8.8 - 10.2 mg/dL 03/30/2020 5:05 PM NURSERY RN DTL Glucose, S 148 (H) 70 - 140 mg/dL 03/30/2020 5:05 PM NURSERY RN D TL Specimen Anatomical Collection Method Collection Time Receive d Time (Source) Location / / Volume Laterality Blood (Blood, 03/30/2020 3:11 PM 03/30/19 21 3:34 Venous) NURSERY RN PM NURSERY RN Zac Gonzalez M.D. LAB BLOOD ADD-ON Performing Organization Address City/State/ZIP Code Phon e Number [facility] - [address] [place], [place] [address] [place] [address] [facility] [address] documented in this encounter Visit Diagnoses Diagnosis Mass Kidney documented in this encounter Additional Health Concerns Assessment Noted Time PHQ-9 Depression Total Score: 11 05/04/2013 4:05 PM CS T documented as of this encounter Care Teams Engraver Block Relationship Specialty Start Date End Date Elsewhere, Pcp PCP - General Internal Medicine 07/27/18 documented as of this encounter
--- OUTSIDE RECORDS SUMMARY | 2022-01-08 16:38 | XMS_ITS | Encounter Summary ---
:1955 Author Organization [facility] Address [address] [place] [address] Care Team Providers Name Role Phone Elsewhere, Pcp Primary Care Provider Unavailable Reason for Visit Reason Comments Follow-up Encounter Details Date Type Department Care Team Description 08/24/2019 Clinical Communication Department of Kitty Mchugh [facility] Cardiovascular Medicine R.N. in [facility] potato chip fryer [address] [place] [address] Social History Tobacco Use Types Packs/Day [...] do you attend shinto or Never 2018 episcopalian services? Do you [...] GAIL Morelos from [facility]; [place], [place]. She was calling seeking verification that [...] name is Tamy and the number is [phone], ext #[phone]. Would you mind given them [...] documented as of this encounter Care Teams Owner [employer] Relationship Specialty Start Date End Date Elsewhere, Pcp PCP - General Internal Medicine 07/27/18 documented as of this encounter
--- OUTSIDE RECORDS SUMMARY | 2022-01-08 16:38 | XMS_ITS | Encounter Summary ---
:1955 Author Organization [facility] Address [address] [place] [address] Care Team Providers Name Role Phone Elsewhere, Pcp Primary Care Provider Unavailable Reason for Referral MRI/CAT/PET Scan (Routine) - Closed Specialty Diagnoses / Procedures Referred By Contact Refer red To Contact Radiology Diagnoses Nodule Pulmonary Harish Harkins M.D. [facility] Procedures CT Chest without IV Contrast [address] [place] [address] Referral ID Status Reason Start Date Expiration Date Visits Requ ested Visits Authorized [id number] Closed 03/20/2020 03/20/2021 1 1 W MACHINE OPERATOR Reason for Visit Reason Comments [facility] Triage Encounter Details Date Type Department Care Team Description 03/20/2020 Clinical Communication Division of Pulmonary Adonay Leal [facility] Triage Medicine in [place], [place] [address] [facility] [address] [place] [phone] Social History Tobacco Use [...] do you attend buddhist or Never 2018 islam services? Do you [...] ASSESSMENT/RECOMMENDATION We will see Ms. Metcalf in [facility] with a dedicated CT chest to assess the nodule and recommend follow up as needed. Patient's case discussed with Dr. Harish Harkins. IMAGES NEEDED PRIOR TO CONSULT All images loaded into [employer], no additional requests needed. W MACHINE OPERATOR documented in this encounter Plan of Treatment Not on filedocumented as of this encounter Results CT Chest without IV Contrast (03/30/2020 10:26 AM RESAW MACHINE OPERATOR) Anatomical Region Laterality Modality Chest, Thoracic RST LOS, Thoracic ARZ N/A Co mputed Tomography, Computed LOS, Thoracic FLA LOS Tomography Specimen (Source) Anatomical Collection Method Collection Time Re ceived Time Location / / Volume Laterality 03/30/2020 10:59 AM RESAW MACHINE OPERATOR Impressions 03/30/2020 12:08 PM RESAW MACHINE OPERATOR 1. Decrease in size of [...] recommendations are attached. Narrative 03/30/2020 12:08 PM RESAW MACHINE OPERATOR EXAM: CT CHEST WITHOUT IV [...] workstation as ordered by the treating p rojohn and reviewed by the radiologist to increase [...] documented as of this encounter Care Teams Lasting Floorworker Relationship Specialty Start Date End Date Elsewhere, Pcp PCP - General Internal Medicine 07/27/18 documented as of this encounter
--- OUTSIDE RECORDS SUMMARY | 2022-01-08 16:38 | XMS_ITS | Encounter Summary ---
:[address] [facility] Address [address] [place] [address] Care Team Providers Name Role Phone Elsewhere, Pcp Primary Care Provider Unavailable Reason for Visit Reason Comments COVID Inquiry Encounter Details Date Type Department Care Team Description 01/03/2020 Clinical Communication Department of Zac Gonzalez Urology in [place], [place] [address] [place] [address] Social History Tobacco Use Types [...] or relatives? How often do you attend scientology or Never 2018 mandaeism services? Do you belong to any clubs or No 02/26/2019 organizations such as scientology groups, unions, fraternal or athletic groups, or [...] documented as of this encounter Care Teams University Controller Relationship Specialty Start Date End Date Elsewhere, Pcp PCP - General Internal Medicine 07/27/18 documented as of this encounter
--- OUTSIDE RECORDS SUMMARY | 2022-01-08 16:38 | XMS_ITS | Encounter Summary ---
:1955 Author Organization [facility] Address [address] [place] [address] Care Team Providers Name Role Phone Elsewhere, Pcp Primary Care Provider Unavailable Reason for Referral Outpatient (Routine) - Closed Specialty Diagnoses / Procedures Referred By Contact Refer red To Contact Pulmonary Medicine Geeta Rodriguez [place] M.D. [address] [place] [address] Referral ID Status Reason Start Date Expiration Date Visits Requ ested Visits Authorized [id number] Closed 03/30/2020 03/30/2021 1 1 TRIC SEALING MACHINE OPERATOR MRI/CAT/PET Scan (Routine) - Closed Specialty Diagnoses / Procedures Referred By Contact Refer red To Contact Radiology Diagnoses Nodule Pulmonary Geeta Rodriguez M.D. [facility] Guan[facility] Procedures CT Chest without IV Contrast [address] [place] [address] Referral ID Status Reason Start Date Expiration Date Visits Requ ested Visits Authorized [id number] Closed 03/30/2020 03/30/2021 1 1 TRIC SEALING MACHINE OPERATOR Outpatient (Routine) - Closed Specialty Diagnoses / Procedures Referred By Contact Refer red To Contact Otorhinolaryngology Diagnoses Hoarseness Chronic Geeta Rodriguez [place] M.D. [address] [place] [address] Referral ID Status Reason Start Date Expiration Date Visits Requ ested Visits Authorized [id number] Closed 03/30/2020 03/30/2021 1 1 TRIC SEALING MACHINE OPERATOR Reason for Visit Appointment Request (Routine) - Closed Specialty Diagnoses / Procedures Referred By Contact Refer red To Contact Pulmonary Medicine Diagnoses Nodule Pulmonary Referral ID Status Reason Start Date Expiration Date Visits Requ ested Visits Authorized [id number] Closed 02/29/2020 02/28/2021 1 1 Encounter Details Date Type Department Care Team Description 03/30/2020 Comprehensive Visit Division of Harish Ware, Holli P ulmonary (Primary Dx); Pulmonary Medicine Geeta Urias M.D. arsen ess Chronic; in [facility] [address] [place] [address] Social History Tobacco Use Types Packs/Day Years [...] do you attend islam or Never 2018 jain services? Do you [...] Comments Blood Pressure 148/86 03/30/2020 1:16 PM ELECTRIC SEALING MACHINE OPERATOR Pulse 61 03/30/2020 1:16 PM ELECTRIC SEALING MACHINE OPERATOR Temperature 36.1 ??C (97 ??F) 03/30/2020 1:16 PM ELECTRIC SEALING MACHINE OPERATOR Respiratory Rate - - Oxygen Saturation 98% 03/30/2020 1:16 PM ELECTRIC SEALING MACHINE OPERATOR Inhaled Oxygen Concentration - - Weight 90.2 kg (198 lb 13.7 oz) 03/30/2020 1:16 PM ELECTRIC SEALING MACHINE OPERATOR Height 164.4 cm (5' 4.72) 03/30/2020 1:16 PM ELECTRIC SEALING MACHINE OPERATOR Body Mass Index 33.37 03/30/2020 1:16 PM ELECTRIC SEALING MACHINE OPERATOR documented in this encounter Consult Notes Geeta [...] intact. No evidence of disorganizedthinking. 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 DIAGNOSTIC REVIEW I have reviewed the patient's [...] spent a total of 45 minutes in [id number] time performing a review of the record and/or discussion with the patient/caregiver as described above. TRIC SEALING MACHINE OPERATOR Jil Mendoza M.D. - 03/30/2020 1:30 PM CST Chief Complaint: Pulmonary nodule HPI: I have personally seen and evaluated Iris Metcalf. I have reviewed the relevant laboratory, radiographic images, chart notes, and impression, report and plan of care with Dr. Geeta Ware andtrent with his documentation from today's date. Briefly, [...] Dr. Harish Ware's note from today's date. TRIC SEALING MACHINE OPERATOR documented in this encounter Plan [...] Microscopic: Urine, Clean Catch (03/30/2020 4:05 PM ELECTRIC SEALING MACHINE OPERATOR) [facility] Method Time Signature Source Midstream 03/30/2020 FREDY 4:05 PM ELECTRIC SEALING MACHINE OPERATOR Appearance Normal Normal 03/30/2020 FREDY 6:00 PM ELECTRIC SEALING MACHINE OPERATOR Osmolality, U 536 150 - 1150 03/30/2020 FREDY mOsm/kg 5:24 PM ELECTRIC SEALING MACHINE OPERATOR pH, U 6.1 4.5 - 8.0 03/30/2020 FREDY 5:24 PM ELECTRIC SEALING MACHINE OPERATOR Comment: ----ADDITIONAL INFORMATION---- This test was developed and its performa nce characteristics determined by [facility] in a manner co nsistent with CLIA requirements. This test has not bee n cleared or approved by the U.S. Food and Drug Admin istration. Glucose 16 (H) 0 - 15 mg/dL 03/30/2020 6:00 PM ELECTRIC SEALING MACHINE OPERATOR FREDY Protein, U 35 (H) <26 mg/dL 03/30/2020 6:00 PM ELECTRIC SEALING MACHINE OPERATOR FREDY Comment: ----ADDITIONAL INFORMATION---- On 09/17/2016 the total protein assay me thod changed resulting in approximately a 15% increase in prote in values. Protein/Osmolality 0.65 (H) <0.42 Ratio 03/30/2020 6:00 PM ELECTRIC SEALING MACHINE OPERATOR FREDY Comment: ----ADDITIONAL INFORMATION---- On 09/17/2016 the total protein assay me thod changed resulting in approximately a 15% increase in prote in values. Predicted 24 Hr Protein 454 mg/24 h 03/30/2020 6:00 PM ELECTRIC SEALING MACHINE OPERATOR FREDY Predicted Range 112-1839 mg/24 h 03/30/2020 6:00 PM ELECTRIC SEALING MACHINE OPERATOR R ALFA Hemoglobin, QL Negative Negative 03/30/2020 6:27 PM ELECTRIC SEALING MACHINE OPERATOR RE NA Specimen Anatomical Collection Method Collection Time Receive d Time (Source) Location / / Volume Laterality Urine (Urine, 03/30/2020 4:05 PM 03/30/19 4:05 Clean Catch) ELECTRIC SEALING MACHINE OPERATOR PM ELECTRIC SEALING MACHINE OPERATOR Geeta Ware M.D. LAB URINE ORDERABLES Performing Organization Address City/State/ZIP Code Phon e Number [facility] - [address] [place], [place] [address] [place] [address] Laboratories-[facility] 200 [facility] (ABNORMAL) CBC without Differential (03/30/2020 3:11 PM ELECTRIC SEALING MACHINE OPERATOR) [facility] Method Time Signature Hemoglobin 13.9 11.6 - 03/30/2020 DTL 15.0 g/dL 3:44 PM ELECTRIC SEALING MACHINE OPERATOR Hematocrit 42.8 35.5 - 03/30/2020 DTL 44.9 % 3:44 PM ELECTRIC SEALING MACHINE OPERATOR Erythrocytes 4.58 3.92 - 03/30/2020 DTL 5.13 3:44 PM ELECTRIC SEALING MACHINE OPERATOR x10(12)/L MCV 93.4 78.2 - 03/30/2020 DTL 97.9 fL 3:44 PM ELECTRIC SEALING MACHINE OPERATOR RBC Distrib Width 12.5 12.2 - 03/30/2020 DTL 16.1 % 3:44 PM ELECTRIC SEALING MACHINE OPERATOR Platelet Count 481 (H) 157 - 371 03/30/2020 DTL x10(9)/L 3:44 PM ELECTRIC SEALING MACHINE OPERATOR Leukocytes 10.9 (H) 3.4 - 9.6 03/30/2020 DTL x10(9)/L 3:44 PM ELECTRIC SEALING MACHINE OPERATOR Specimen Anatomical Collection Method Collection Time Receive d Time (Source) Location / / Volume Laterality Blood (Blood, 03/30/2020 3:11 PM 03/30/19 21 3:34 Venous) ELECTRIC SEALING MACHINE OPERATOR PM ELECTRIC SEALING MACHINE OPERATOR Geeta Ware M.D. LAB BLOOD ADD-ON Performing Organization Address City/State/ZIP Code Phon e Number [facility] - [address] [place], [place] [address] [facility] [address] ALT (Alanine Aminotransferase) (03/30/2020 3:11 PM ELECTRIC SEALING MACHINE OPERATOR) [facility] gist Method Time Signature Alanine 27 7 - 45 03/30/2020 DTL Aminotransferase U/L 5:05 PM ELECTRIC SEALING MACHINE OPERATOR (ALT), S Specimen Anatomical Collection Method Collection Time Receive d Time (Source) Location / / Volume Laterality Blood (Blood, 03/30/2020 3:11 PM 03/30/19 21 3:34 Venous) ELECTRIC SEALING MACHINE OPERATOR PM ELECTRIC SEALING MACHINE OPERATOR Geeta Ware M.D. LAB BLOOD ADD-ON Performing Organization Address City/State/ZIP Code Phon e Number [facility] - [address] [place], [place] [address] [place] [address] AST (Aspartate Aminotransferase) (03/30/2020 3:11 PM ELECTRIC SEALING MACHINE OPERATOR) [facility] Method Time Signature Aspartate 22 8 - 43 03/30/2020 DTL Aminotransferase U/L 5:05 PM ELECTRIC SEALING MACHINE OPERATOR (AST), S Specimen Anatomical Collection Method Collection Time Receive d Time (Source) Location / / Volume Laterality Blood (Blood, 03/30/2020 3:11 PM 03/30/19 21 3:34 Venous) ELECTRIC SEALING MACHINE OPERATOR PM ELECTRIC SEALING MACHINE OPERATOR Geeta Ware M.D. LAB BLOOD ADD-ON Performing Organization Address City/State/ZIP Code Phon e Number [facility] - [address] [place], [place] [address] [facility] [place], [place] [id number] [place] [address] (ABNORMAL) Alkaline Phosphatase (03/30/2020 3:11 PM ELECTRIC SEALING MACHINE OPERATOR) P athologist Signature Alkaline 116 (H) 35 - 104 03/30/2020 DTL Phosphatase, S U/L 5:05 PM ELECTRIC SEALING MACHINE OPERATOR Specimen Anatomical Collection Method Collection Time Receive d Time (Source) Location / / Volume Laterality Blood (Blood, 03/30/2020 3:11 PM 03/30/19 21 3:34 Venous) ELECTRIC SEALING MACHINE OPERATOR PM ELECTRIC SEALING MACHINE OPERATOR Geeta Ware M.D. LAB BLOOD ADD-ON Performing Organization Address City/State/[facility] Code Phon e Number [facility] - [address] [place], [place] [address] [facility] [place] [address] Laboratories-[facility] [address] documented in this encounter Visit Diagnoses Diagnosis Nodule Pulmonary - Primary Hoarseness Chronic Mass Kidney documented in this encounter Additional Health Concerns Assessment Noted Time PHQ-9 Depression Total Score: 11 05/04/2013 4:05 PM CS T documented as of this encounter Care Teams Popcorn Attendant Relationship Specialty Start Date End Date Elsewhere, Pcp PCP - General Internal Medicine 07/27/18 documented as of this encounter
--- OUTSIDE RECORDS SUMMARY | 2022-01-08 16:39 | XMS_ITS | Encounter Summary ---
:1955 Author Organization [facility] Address [address] [place] [address] Care Team Providers Name Role Phone Elsewhere, Pcp Primary Care Provider Unavailable Reason for Visit Reason Onset Date Comments Follow-up 05/18/2019 Encounter Details Date Type Department Care Team Description 05/18/2019 Clinical Communication Outpatient Surgery and Jovani Ingram, Follow-up Procedural Admissions R.NEdilma, CCRN in [place], [address] [place], [place] [address] [facility] [address] [place], [place] [phone] [address] (Work) [phone] Social History Tobacco Use Types Packs/Day Years [...] do you attend christian or Never 2018 druze services? Do you [...] documented as of this encounter Care Teams Middle School Resource Teacher Relationship Specialty Start Date End Date Elsewhere, Pcp PCP - General Internal Medicine 07/27/18 documented as of this encounter
--- OUTSIDE RECORDS SUMMARY | 2022-01-08 16:39 | XMS_ITS | Encounter Summary ---
:1955 Author Organization [facility] Address [address] [place] [address] Care Team Providers Name Role Phone Elsewhere, Pcp Primary Care Provider Unavailable Encounter Details Date Type Department Care Team Description 04/19/2019 Clinical Communication Outpatient Surgery and Alberto Mcgowan Procedural Admissions D, R.N. in [address] [place] [phone] [place] [address] Social History Tobacco Use Types Packs/Day Years [...] do you attend nondenominational or Never 2018 faith services? Do you [...] documented as of this encounter Care Teams Caramel Candy Maker Helper Relationship Specialty Start Date End Date Elsewhere, Pcp PCP - General Internal Medicine 07/27/18 documented as of this encounter
--- OUTSIDE RECORDS SUMMARY | 2022-01-08 16:39 | XMS_ITS | Encounter Summary ---
:1955 Author Organization [facility] Address [address] [place] [address] Care Team Providers Name Role Phone Elsewhere, Pcp Primary Care Provider Unavailable Reason for Referral MRI/CAT/PET Scan (Routine) - Closed Specialty Diagnoses / Procedures Referred By Contact Refer red To Contact Radiology Diagnoses Flutter Atrial (HCC) Atrial Fibrillation Paroxysmal (HCC) Tucker Rutherford P.A.-C. [facility] Procedures CT Cardiac Angiogram Pulmonary Veins with IV [address] [place] [address] Referral ID Status Reason Start Date Expiration Date Visits Requ ested Visits Authorized [id number] Closed 04/21/2019 04/20/2020 1 1 Reason for Visit MRI/CAT/PET Scan (Routine) - Closed Specialty Diagnoses / Procedures Referred By Contact Refer red To Contact Radiology Diagnoses Flutter Atrial (HCC) Atrial Fibrillation Paroxysmal (HCC) Tucker Rutherford P.A.-C. [facility] Procedures CT Cardiac Angiogram Pulmonary Veins with IV [address] [place] [address] Referral ID Status Reason Start Date Expiration Date Visits Requ ested Visits Authorized [id number] Closed 04/21/2019 04/20/2020 1 1 Encounter Details Date Type Department Care Team Description 08/18/2019 Hospital Encounter Department of MichellenTucker, Lynettet ter Atrial (HCC); Radiology, Garett Torres Atrial Fibrillation Paroxysmal (HCC); Building, in [address] [place] [address] Atrial Fibrillation Paroxysmal (HCC) [facility] [address] 200 [facility] [phone] [place], [place] (Work) [phone] Social History Tobacco Use Types Packs/Day Years [...] do you attend judaism or Never 2018 moravian services? Do you [...] thoracic spine. Cholecystectomy clips se en on inpatient auditor images. GUIDELINES FOR FOLLOW-UP of newly detect [...] thoracic spine. Cholecystectomy clips se en on inpatient auditor images. GUIDELINES FOR FOLLOW-UP of newly detect [...] fo r recommended surveillance. Tucker Rutherford P.A.-C. [facility] PROCEDURES Creatinine, POCT (08/18/2019 9:20 AM [...] Number POC AMALIA PERFORMING [address] [place] [address] LABS PCDT [facility] [place] [address] [place] [facility] [address] Creatinine, POCT (08/18/2019 9:20 AM CDT) P athologist Signature eGFR-Black/Afri >90 >=60 08/18/2019 PCMO can [place], mL/min/BSA 9:25 AM CDT POCT Comment: ----ADDITIONAL [...] City/State/ZIP Code Phon e Number POC [facility] [address] [place] [address] OUTPATIENT LABS PCMO [facility] [place] [address] [place] [facility] [address] documented in this [...] documented as of this encounter Care Teams Alfalfa Dehydrator Operator Relationship Specialty Start Date End Date Elsewhere, Pcp PCP - General Internal Medicine 07/27/18 documented as of this encounter
--- OUTSIDE RECORDS SUMMARY | 2022-01-08 16:39 | XMS_ITS | Encounter Summary ---
:1955 Author Organization [facility] Address [address] [place] [address] Care Team Providers Name Role Phone Elsewhere, Pcp Primary Care Provider Unavailable Encounter Details Date Type Department Care Team Description 07/06/2019 Clinical Communication Department of [facility] Cardiovascular Medicine Porfirio in [facility] nasim Kellogg [address] [facility] [address] [place] [address] [place], [place] [phone] Social History Tobacco Use Types Packs/Day [...] do you attend holiness or Never 2018 caodaism services? Do you [...] documented as of this encounter Care Teams Neonatal Intensive Care Unit Nurse Relationship Specialty Start Date End Date Elsewhere, Pcp PCP - General Internal Medicine 07/27/18 documented as of this encounter
--- OUTSIDE RECORDS SUMMARY | 2022-01-08 16:39 | XMS_ITS | Encounter Summary ---
:1955 Author Organization [facility] Address [address] [place] [address] Care Team Providers Name Role Phone Elsewhere, Pcp Primary Care Provider Unavailable Encounter Details Date Type Department Care Team Description 04/19/2019 Anesthesia Event Division of Cardiovascular Melyssa Lazar, Diseases in [place], FURNITURE SPRAYER, CRN A [place] [address] [place] [id number] [phone] Anesthesia Record Procedure Summary Procedure Name Responsible Anesthesiologist Anesthesia Start Ti me Anesthesia Stop Time ABLATION - PVI Amanda Lazar, NO, MASTER BAKER 04/19/19 0853 1414 Events Date Time Event [...] h andoff to the receiving staff during [facility] ch we 1. Identified the patient [...] 1,000 units/mL injection 15,000 Units heparin standard 32510 Units/250 mL in D5W infusion 3, 767.08 [...] Larose, Valerie Hampton per pt); Arm; Left; R.N. A, R.N. scabbed over; 04/20/19; resolved Peripheral IV Placement [...] y 04/19/19; Orientation: Valerie Jaquez Jard io, Lois Right; Location: Hand; R.N. Irelyn R, RManjeet. Inserted by: placed prior to start of shift.; Removal Date: 04/21/19; Removal Time: 08; Removal Reason: Per patient/family request Peripheral IV Placement Date: 04/19/19 0000 by 04/21/19 1053 b y 04/19/19; Orientation: Valerie Jaquez, Jard io, Talya Left, Posterior; Lennox Urias RManjeet. Location: Wrist; Inserted by: placed prior to [...] Placemnt Time: Amanda Lazar APRN, Ja rdio, Lois 929 (created via [facility] Urias R.N. procedure [...] Dandre Yanez, Melissa io, Talya non-implanted); Venous; Adonay.N. Irelyn R , R.N. Right Femoral; 8 Fr. x 2; Ultrasound; 04/21/19; 1053 Percutaneous Access 04/19/19; 1016; 04/19/19 1016 by 04/21/19 10 53 by Site Temporary (non-tunneled, Flottum, Dandre A, Jard io, Talya non-implanted); Venous; R.N. Willie R , R.N. Left Femoral; 8 Fr., 7 Fr., [...] do you attend latter-day or Never 2018 spiritism services? Do you [...] Procedure Summary Date: 04/19/19 Room / Location: [facility] / [facility] Anesthesia Start: 852 Anesthesia Stop: [...] Post Op nausea/vomiting: none Hydration status: euvolemic METRY PROFESSOR Anesthesia Preprocedure Evaluation - Amanda Lazar APRN, CRNA - 04/19/2019 10:58 AM CST Preprocedure Anesthesia & H&P Assessment Procedure Summary Anesthesia Start Date/Time: 04/19/19 0853 Procedures: ABLATION - PVI (N/A ) 3D Mapping - Carto (N/A ) Ultrasound guidance for vascular access (N/A ) Intracardiac Echocardiogram (N/A ) Diagnosis: Atrial Fibrillation (HCC) [I48.91] Location: [place] [address] / [facility] Surgeon: Marla Yeager M.B.B.S. Pertinent [...] with patient /legal guardian or through an supervisor sintering plant. Risks/Benefits/Alternatives of Blood transfusion discussed with patient / legal guardian, including an opportunity to ask questions and/or decline some or all transfusion therapies. The patient / legalguardian consented to the use of all blood products, as deemed medically necessary Approval to Proceed: approved for anesthesia METRY PROFESSOR Anesthesia Procedure Notes - Amanda Lazar APRN, CRNA - 04/19/2019 9:50 AM OPTOMETRY PROFESSOR Associated Order(s): Airway Airway Date/Time: 04/19/2019 9:08 AM Performed by: Amanda Lazar APRN, CRNA Authorized by: Amanda Lazar APRN, CRNA Patient location during procedure: OR / Procedure Area PROCEDURE DETAILS: Mask difficulty assessment: easy mask Final airway type: video laryngoscope Laryngeal Manipulation: no Final best view of glottic structures - Cormack/Lehane Score: grade 2A ETT location: oral VL device: glide scope [place] scope blade size: 3 Adult tube size: [...] airway technique used for educational purposes: yes METRY PROFESSOR Anesthesia Procedure Notes - Amanda Lazar APRN, CRNA - 04/19/2019 9:49 AM OPTOMETRY PROFESSOR Associated Order(s): Invasive Catheter Invasive Catheter Date/Time: [...] with sutureless device Complications - arterial: none METRY PROFESSOR documented in this encounter Plan of Treatment Not on filedocumented as of this encounter Procedures Procedure Name Priority Date/Time Associated Comments Diagnosis LDA ANE ENDOTRACHEAL Routine 04/19/2019 9:50 AM R esults for this AIRWAY OPTOMETRY PROFESSOR procedure are i n the results section. LDA ANE ARTERIAL LINE Routine 04/19/2019 9:49 AM Results for this INSERTION OPTOMETRY PROFESSOR procedure are i n the results section. MS ARTL CATH/CNULA Routine 04/19/2019 9:49 AM Res ults for this MONITOR PERC OPTOMETRY PROFESSOR procedure are i n the results section. documented in this encounter Results LDA ANE ENDOTRACHEAL AIRWAY (04/19/2019 9:50 AM OPTOMETRY PROFESSOR) Narrative Amanda Lazar APRN, CRNA - 04/19/2019 9 :50 AM OPTOMETRY PROFESSOR Amanda Lazar APRN, CRNA ? 04/19/2019 ??9:52 [...] ETT location: oral VL device: glide scope [place] scope blade size: 3 Adult tube size: [...] yes Amanda Lazar APRN, CRNA ANESTHESIA ORDERABLES MS ARTL CATH/CNULA MONITOR PERC, LDA ANE ARTERIAL LINE INSERTION (04/19/2019 9:49 AM OPTOMETRY PROFESSOR) Narrative Amanda Lazar APRN, CRNA - 04/19/2019 9 :49 AM OPTOMETRY PROFESSOR Amanda Lazar APRN, CRNA ? 04/19/2019 ??9:50 [...] Complications - arterial: none Amanda L Nagi FURNITURE SPRAYER, MASTER BAKER PROCEDURE/MINOR SURGICAL ORD ERABLES documented in this encounter Visit Diagnoses Not on filedocumented in this encounter Administered Medications Inactive Administered Medications - up to 3 most recent administrations Medication Order MAR Action Action Date Dose Rate Site acetaminophen injection Given 04/19/2019 1:56 PM OPTOMETRY PROFESSOR 1,000 mg (OFIRMEV) Administer over 15 Minutes, As needed, Starting on Fri04/19/19 at 1356, Anesthesia Intra-op adenosine injection (ADENOCARD) Given 04/19/2019 1:09 PM OPTOMETRY PROFESSOR 9 mg As needed, Starting on Fri04/19/19 at 1301, Anesthesia Intra-op Given 04/19/2019 1:07 PM OPTOMETRY PROFESSOR 9 mg Given 04/19/2019 1:01 PM OPTOMETRY PROFESSOR 9 mg ceFAZolin injection (ANCEF) Given 04/19/2019 1:20 PM OPTOMETRY PROFESSOR 2 g As needed, Starting on Fri04/19/19 at 1027, Anesthesia Intra-op Given 04/19/2019 10:27 AM OPTOMETRY PROFESSOR 2 g fentaNYL injection (SUBLIMAZE) Given 04/19/2019 1:50 PM OPTOMETRY PROFESSOR 50 mcg As needed, Starting on Fri04/19/19 at 0906, Anesthesia Intra-op Given 04/19/2019 11:34 AM OPTOMETRY PROFESSOR 50 mcg Given 04/19/2019 9:56 AM OPTOMETRY PROFESSOR 50 mcg fentaNYL injection (SUBLIMAZE) Given 04/19/2019 10:08 AM OPTOMETRY PROFESSOR 100 mcg intravenous, As needed, Starting on Fri04/19/19 at 1008, Anesthesia Intra-op furosemide injection (LASIX) Given 04/19/2019 11:41 AM OPTOMETRY PROFESSOR 20 mg As needed, Starting on Fri04/19/19 at 1141, Anesthesia Intra-op heparin (porcine) 1,000 unit/mL Given 04/19/2019 12:02 PM OPTOMETRY PROFESSOR 3, 000 Units injection As needed, Starting on Fri04/19/19 at 1024, Anesthesia Intra-op Given 04/19/2019 11:12 AM OPTOMETRY PROFESSOR 2,000 Units Given 04/19/2019 10:24 AM OPTOMETRY PROFESSOR 10,000 Units heparin (porcine) 100 Rate/Dose 04/19/2019 12:55 13 Units/kg/hr 12.8 mL/hr Units/mL in D5W 250 mL Change PM OPTOMETRY PROFESSOR infusion Continuous Infusion: Per Instructions PRN, Starting on Fri04/19/19 at 1030, Anesthesia Intra-op Rate/Dose Change 04/19/2019 12:01 PM OPTOMETRY PROFESSOR 14 Units/kg/hr 13.8 mL/hr Rate/Dose Change 04/19/2019 11:12 AM OPTOMETRY PROFESSOR 12 Units/kg/hr 11.8 mL/hr heparin infusion 2 units/mL in NaCl New Bag 04/19/2019 1:28 PM OPTOMETRY PROFESSOR Continuous Infusion: Per Instructions PRN, Starting on Fri04/19/19 at 1212, Anesthesia Intra-op New Bag 04/19/2019 12:12 PM OPTOMETRY PROFESSOR lactated ringers New Bag 04/19/2019 8:50 AM OPTOMETRY PROFESSOR intravenous, Continuous Infusion: Per Instructions PRN, Starting on Fri04/19/19 at 0850, Anesthesia Intra-op lactated ringers New Bag 04/19/2019 9:23 AM OPTOMETRY PROFESSOR intravenous, Continuous Infusion: Per Instructions PRN, Starting on Fri04/19/19 at 0923, Anesthesia Intra-op ondansetron (PF) injection (ZOFRAN) Given 04/19/2019 10:31 AM OPTOMETRY PROFESSOR 4 mg intravenous, As needed, Starting on Fri04/19/19 at 1031, Anesthesia Intra-op phenylephrine 80 mcg/mL in Rate/Dose 04/19/2019 1:21 0.1 mcg/kg/min 7.38 mL/hr NaCl 0.9% 250 mL infusion Change PM OPTOMETRY PROFESSOR Continuous Infusion: Per Instructions PRN, Starting on Fri04/19/19 at 1029, Anesthesia Intra-op Rate/Dose Change 04/19/2019 1:11 PM OPTOMETRY PROFESSOR 0.2 mcg/kg/min 14.8 mL/hr Rate/Dose Change 04/19/2019 1:06 PM OPTOMETRY PROFESSOR 0.3 mcg/kg/min 22.1 mL/hr phenylephrine injection Given 04/19/2019 1:44 PM OPTOMETRY PROFESSOR 100 mcg intravenous, As needed, Starting on Fri04/19/19 at 1341, Anesthesia Intra-op Given 04/19/2019 1:41 PM OPTOMETRY PROFESSOR 100 mcg potassium chloride IVPB Given 04/19/2019 11:48 AM OPTOMETRY PROFESSOR 10 mEq Administer over 60 Minutes, As needed, Starting on Fri04/19/19 at 1148, Anesthesia Intra-op propofol injection (DIPRIVAN) Given 04/19/2019 9:33 AM OPTOMETRY PROFESSOR 30 mg As needed, Starting on Fri04/19/19 at 0906, Anesthesia Intra-op Given 04/19/2019 9:18 AM OPTOMETRY PROFESSOR 40 mg Given 04/19/2019 9:06 AM OPTOMETRY PROFESSOR 120 mg propofol injection (DIPRIVAN) Given 04/19/2019 10:35 AM OPTOMETRY PROFESSOR 40 mg intravenous, As needed, Starting on Fri04/19/19 at 1035, Anesthesia Intra-op rocuronium injection (ZEMURON) Given 04/19/2019 10:27 AM OPTOMETRY PROFESSOR 30 mg As needed, Starting on Fri04/19/19 at 0906, Anesthesia Intra-op Given 04/19/2019 9:06 AM OPTOMETRY PROFESSOR 50 mg vecuronium injection (NORCURON) Given 04/19/2019 9:06 AM OPTOMETRY PROFESSOR 10 mg As needed, Starting on Fri04/19/19 at 0906, Anesthesia Intra-op documented in this encounter Additional Health Concerns Assessment Noted Time PHQ-9 Depression Total Score: 11 05/04/2013 4:05 PM CS T documented as of this encounter Care Teams Mold Filler Relationship Specialty Start Date End Date Elsewhere, Pcp PCP - General Internal Medicine 07/27/18 documented as of this encounter
--- OUTSIDE RECORDS SUMMARY | 2022-01-08 16:39 | XMS_ITS | Encounter Summary ---
:1955 Author Organization [facility] Address [address] [place] [address] Care Team Providers Name Role Phone Elsewhere, Pcp Primary Care Provider Unavailable Reason for Referral Outpatient (Routine) - Closed Specialty Diagnoses / Procedures Referred By Referred To Contact Contact Cardiovascular Diseases / Diagnoses Flutter Atrial (HCC) Atrial Fibrillation Paroxysmal (HCC) Tucker Rutherford [facility] Cardiovascular Disease P.A.-C. [address] [place] [address] Referral ID Status Reason Start Date Expiration Date Visits Requ ested Visits Authorized [id number] Closed 04/21/2019 04/20/2020 1 1 SIGN INSTALLER MRI/CAT/PET Scan (Routine) - Closed Specialty Diagnoses / Procedures Referred By Contact Refer red To Contact Radiology Diagnoses Flutter Atrial (HCC) Atrial Fibrillation Paroxysmal (HCC) Tucker Rutherford P.A.-Kadeem [facility] Procedures CT Cardiac Angiogram Pulmonary Veins with IV [address] [place] [address] Referral ID Status Reason Start Date Expiration Date Visits Requ ested Visits Authorized [id number] Closed 04/21/2019 04/20/2020 1 1 SIGN INSTALLER Outpatient (Routine) - Closed Specialty Diagnoses / Procedures Referred By Contact Refer red To Contact Diagnoses Flutter Atrial (HCC) Atrial Fibrillation Paroxysmal (HCC) Tucker Rutherford P.A.-C. [facility] Procedures ECG 12 Lead [address] [place], [place] [address] Referral ID Status Reason Start Date Expiration Date Visits Requ ested Visits Authorized [id number] Closed 04/21/2019 04/20/2020 1 1 SIGN INSTALLER Outpatient (Routine) - Closed Specialty Diagnoses / Procedures Referred By Contact Refer red To Contact Diagnoses Flutter Atrial (HCC) Atrial Fibrillation Paroxysmal (HCC) Tucker Rutherford P.A.-C. [facility] Procedures ECG Heart rhythm monitor (Holter) [address] [place], [place] [address] Referral ID Status Reason Start Date Expiration Date Visits Requ ested Visits Authorized [id number] Closed 04/21/2019 04/20/2020 1 1 SIGN INSTALLER Outpatient (Routine) - Closed Specialty Diagnoses / Procedures Referred By Contact Refer red To Contact Diagnoses Flutter Atrial (HCC) Atrial Fibrillation Paroxysmal (HCC) Tucker Rutherford P.A.-C. [facility] Procedures Echo Transthoracic (TTE) [address] [place], [place] [address] Referral ID Status Reason Start Date Expiration Date Visits Requ ested Visits Authorized [id number] Closed 04/21/2019 04/20/2020 1 1 SIGN INSTALLER Encounter Details Date Type Department Care Team Description 04/19/2019 - Hospital Encounter [facility] Shobha, Flutter A trial (HCC) (Primary Dx); 04/21/2019 [facility], Fibrillation Atrial (HCC); [facility] Atrial Fibrillation Paroxysmal (HCC) [facility], [address] [facility] Fourth Floor [place], [place] [address] [facility] [address] [place], [place] [phone] [address] (Work) [phone] Social History Tobacco Use Types Packs/Day Years [...] do you attend christian or Never 2018 rastafarian services? Do you [...] Comments Blood Pressure 137/84 04/21/2019 8:[address] SIGN INSTALLER Pulse 78 04/21/2019 8:[address] SIGN INSTALLER Temperature 37.5 ??C (99.5 ??F) 04/21/2019 8:[address] SIGN INSTALLER Respiratory Rate 22 04/21/2019 11:[address] SIGN INSTALLER Oxygen Saturation 91% 04/21/2019 8:[address] SIGN INSTALLER Inhaled Oxygen Concentration - - Weight 98.3 kg (216 lb 11.4 oz) 04/21/2019 3:[address] SIGN INSTALLER Height 165.6 cm (5' 5.2) 04/19/2019 8:[address] SIGN INSTALLER Body Mass Index 35.85 04/19/2019 8:[address] SIGN INSTALLER documented in this encounter Discharge Summaries Tucker Rutherford P.A.-C. - 04/21/2019 10:04 AM CST Images from the original note were not included. DISCHARGE SUMMARY BRIEF OVERVIEW Discharge Provider: Marla Yeager M.B.BEdilmaSEdilma Primary Care Providers: Elsewhere, Pcp (General) [address] [facility] [address] Primary Care Provider Phone Number: None Primary Care Provider Fax Number: None Other Providers: Patient Care Team: Elsewhere, Pcp as PCP - General (Internal Medicine) Detert, Kandace L, D.O. as External Primary Care Physician (Family Medicine) Oralia Ricks APRN C.N.P. as Nurse Practitioner (Cardiovascular Diseases) Porfirio Villegas [...] HOSPITAL COURSE Iris Metcalf was discharged from [facility] following an ablation performed by Dr. Yeager [...] in approximately 3 months at [facility] in Heart Rhythm Services. Testing at that time will include a 24 hr Holter monitor, ECG, echocardiogram, and cardiac Ct. Patient was also instructed to follow up with Primary Care locally in the next 7-10 days for post hospital follow up. Discharge instructions were provided to the patient and caregiver(s). Juan J Rutherford P.A.-C. SIGN INSTALLER documented in this encounter Discharge Instructions Discharge InstructionsHiTucker fish P.A.-C. - 04/21/2019 11:[address] SIGN INSTALLER Hospital Problems as of 04/21/2019 1. * [...] 4:00 p.m., contact the Electrophysiology Service at [phone]. For questions occurring after business hours, on weekends, nights, or holidays call [phone] and ask for Electrophysiology Pastry Artist. General Follow-Up: You should follow up locally with your primary care provider in approximately 2 weeks for post hospitalization follow-up. Take a copy of the dismissal summary from [facility] to your provider. [facility] Follow-Up: A follow-up appointment will be scheduled for you in 3 months in the Heart Rhythm Center or Cardiovascular Exam Room. You will be contacted by [facility] to set up the follow up. Tests will include the following: electrocardiogram, 24-hour Holter monitor, transthoracic echocardiogram, and CT scan of heart. Our appointment coordinators will be contacting you. If you have not been notified about your appointment, please contact the electrophysiology athletic coordinator at . Anticoagulation: Anticoagulation with Coumadin [...] avoid/skip your follow-up appointments, they are important! SIGN INSTALLER AttachmentsThe following attachments cannot be sent through Care Everywhere. Acetaminophen (By mouth) (Colombian)Flecainide (By mouth) (Colombian)Omeprazole (By mouth) (Colombian)documented in this encounter Medications at Time of [...] and Lissette Breen Pharm.D., R.Ph. Contact Pager [phone] with any questions about this note. SIGN INSTALLER Tucker Rutherford P.A.-C. - 04/20/2019 11:26 AM [...] Clinical Cardiac Electrophysiology Fellow 04/20/2019 8:[address] SIGN INSTALLER SIGN INSTALLER Aria Houser APRN, C.N.P., M.S.N. - 04/19/2019 [...] the hospital for monitoring while on flecainide. SIGN INSTALLER Jayda Whitehead, Pharm.D., R.Ph. - 04/19/2019 4:01 [...] and Jayda Haddad Pharm.D., R.Ph. Contact Pager [phone] with any questions about this note. SIGN INSTALLER documented in this encounter Procedure Notes Porfirio [...] BLOOD LOSS Estimated Blood Loss: 1-75 ml SIGN INSTALLER documented in this encounter Consult Notes Flores Romeo R.N. - 04/21/2019 9:05 AM CSTAssociated Order(s): IP CONSULT TO CARE MANAGEMENT Discharge Planning Assessment SUBJECTIVE Referral Data Referral Source: Nurse Referral Name: Valerie Jaquez R.N. Referral Reason: Discharge Planning Discharge Planning: Other (Comment)([facility]) Who was present during the interview?: Patient Hotel Supplies Salesperson Services Used: No Patient Information Primary Caregiver: Other (Comment)(staff at facility) Primary Nurse Name/Number: Bernie Diet/Texture: By mouth Legal Information Legal Decision Maker: Self Advance Directives: Power of Pickers Material Handlers for health care, Power of Pickers Material Handlers for finance Advance Directives Status: Not Activated Power of Pickers Material Handlers for Health Care Agent Name: Ramin Metcalf Power of Pickers Material Handlers for Health Agent Contact Info: [phone] Power of Pickers Material Handlers for Finance Agent Name: Ramin Metcalf Power of Pickers Material Handlers for Finance Agent Contact Info: [phone] Caregiver Information Caregiver Name: [facility] Caregiver Relationship: paid staff Caregiver Caregiver Address: [address] [place] [address] Services Requested Discharge Planning to Facility OBJECTIVE [...] Communication: Can write, Talks, Understands speaking, Understands Colombian Environmental Supports Home Environment: Custodial Care Facility Name: [facility] Anticipated Modifications to the Patient's Home: None [...] Residence: Other (Comment) Type of Residence Other: Telephone Installer Care Facility Care Facility Name: [facility] Support Systems: Children Assistance Recommended after Discharge: 24 hour supervision Home Care Services: No Anticipated Discharge Destination: [facility] Does the patient need discharge transport arranged?: Yes Has discharge transport been arranged?: Yes What day is the transport expected?: 04/21/19 What time is the transport expected?: 1130 Discharge Provided By: Chasity Mcbain: [phone] ASSESSMENT / PLAN ??Assessment: Met with the patient to discuss her prior level of care and home going needs. I reviewed my role of Environmental Manager. Patient reviewed her current hospitalization and appears to have understanding, insightand competence of her needs. Patient reviewed her home environment and support system; reviewing that her primary managed care analyst - facility staff will be able to provide care to patient post discharge. Patient reports that she feels safe and supported to return [facility]. ?? Patient stated that she has two sons that are her support system. Patient hopes to transition to an assisted living center. Plan: Patient appears to have understanding, insight and competence into patient needs and is appropriately planning for discharge at this time. I recommended the following: none at this time 1. Patient plans to return to [facility] once medically stable for DC 2. Resources given:None 3. CM will continue to follow for any needs that arise. 4. Transportation home will be provided by Mc[facility] [phone]. 5. Reconnections needed [facility]. Patient to return to: Destination - Selection Complete Service Provider Request Status Selected Services Address Phone Number Fax Number [facility] Selected Transitional Care Unit [address] [facility] [address] [phone] Contact: Intake Patient has a MA bedhold. Facility prefers patient return by 1300. Transportation to be provided by Mc[facility] at 1130. Please contact Case Management if [...] arise. Signed by: Flores Romeo R.N. 04/21/2019 SIGN INSTALLER documented in this encounter Nursing Notes Talya Duffy R.N. - 04/21/2019 10:55 AM CST Pt d/c to [facility]. Facility AVS, discharge summary and MAR report printed, discussed andhanded to pt to relay to SNF. Nurse to nurse report done. Education complete. Teach-back acquired. All questions answered. Transport arranged. Escort requested. SIGN INSTALLER Mary Cortés, R.R.T., L.R.T. - 04/20/2019 12:42 AM CST Patient is a 64 y.o. female admitted on 04/19/2019 Alert Information: Plan of Care: Patient refused PAP therapy tonight. RT will continue to offer assistance. Principal Problem Atrial Fibrillation Paroxysmal (HCC) Oxygen Therapy $Delivery Method: Room air Arterial Line 04/19/19 Right Radial (Active) Placement Date/Time: 04/19/19 (c) 0534 Procedural Pause Completed: Yes Hand Hygiene Performed Prior to Insertion: Yes Site Prep: Chlorhexidine (Preferred) Sterile Barriers Used : Cap;Gloves;Gown;Large drape;Mask (Clinician);Mask (All others in ro... SIGN INSTALLER Naren Michaels R.N. - 04/19/2019 9:35 PM CST Shift Goals: Clinical Goals for the Shift: pt remain safe Identify possible barriers to meeting goals/advancing plan of care: pt up with assist and walker End of Shift Summary: met SIGN INSTALLER Naren Peng R.R.T., L.R.T. - 04/19/2019 5:29 PM CST Assist with CPAP SIGN INSTALLER Robbie Emerson R.N. - 04/19/2019 8:38 AM CST Patient was admitted for ablation/ electrophysiology procedure. Reviewed HPI, preliminary testing and confirmed medications taken this morning. The last dose of Warfarin taken was 04/19/2019. Pain management strategies post-procedure were discussed. All questions were answered. Patient would like family member Ramin updated with procedural updates. The phone number to reach this family member is [phone]. SIGN INSTALLER documented in this encounter Plan of Treatment Scheduled Referrals Name Type Priority Associated Diagnoses Order [facility] Cardiovascular Disease Outpatient Routine Flutter A trial (HCC) Expected: - Heart rhythm consult Referral Atrial Fibrillatio n 07/21/2019 (clinic) Paroxysmal (HCC) (Approximat e), Expires: 04/21/2022 documented as of this encounter Procedures Procedure Name Priority Date/Time Associated Comments Diagnosis ECG Routine 04/21/2019 Results for 10:[address] SIGN INSTALLER this procedure are in the results section. PROTHROMBIN TIME (PT), Routine 04/21/2019 6:15 Re sults for P AM ROAD SIGN INSTALLER this procedure are in the results section. CBC WITH DIFFERENTIAL, Routine 04/21/2019 6:15 Re sults for B AM ROAD SIGN INSTALLER this procedure are in the results section. BUN (BLOOD UREA Routine 04/21/2019 6:15 Results f or NITROGEN), S/P AM ROAD SIGN INSTALLER this procedur e are in the results section. POTASSIUM, S/P Routine 04/21/2019 6:15 Results fo r AM ROAD SIGN INSTALLER this procedure are in the results section. MAGNESIUM, S Routine 04/21/2019 6:[address] SIGN INSTALLER this procedure are in the results section. CREATININE WITH EGFR, Routine 04/21/2019 6:15 Res ults for S/P AM ROAD SIGN INSTALLER this procedure are in the results section. ECG Routine 04/20/2019 Results for 10:[address] SIGN INSTALLER this procedure are in the results section. DX CHEST AP OR PA AND RAD - Timed 04/20/2019 8:18 Res ults for LATERAL 2 VIEWS (for specific AM ROAD SIGN INSTALLER this proced ure dates/times) are in the results section. ECG Routine 04/20/2019 6:[address] SIGN INSTALLER this procedure are in the results section. PROTHROMBIN TIME (PT), Routine 04/20/2019 6:34 Re sults for P AM ROAD SIGN INSTALLER this procedure are in the results section. CBC WITH DIFFERENTIAL, Routine 04/20/2019 6:34 Re sults for B AM ROAD SIGN INSTALLER this procedure are in the results section. BUN (BLOOD UREA Routine 04/20/2019 6:34 Results f or NITROGEN), S/P AM ROAD SIGN INSTALLER this procedur e are in the results section. POTASSIUM, S/P Routine 04/20/2019 6:34 Results fo r AM ROAD SIGN INSTALLER this procedure are in the results section. MAGNESIUM, S Routine 04/20/2019 6:[address] SIGN INSTALLER this procedure are in the results section. CREATININE WITH EGFR, Routine 04/20/2019 6:34 Res ults for S/P AM ROAD SIGN INSTALLER this procedure are in the results section. GLUCOSE POCT, B Routine 04/19/2019 4:12 Results f or PM ROAD SIGN INSTALLER this procedure are in the results section. POTASSIUM, S/P STAT 04/19/2019 3:42 Results fo r PM ROAD SIGN INSTALLER this procedure are in the results section. MAGNESIUM, S STAT 04/19/2019 3:[address] SIGN INSTALLER this procedure are in the results section. PROTHROMBIN TIME (PT), STAT 04/19/2019 2:53 Re sults for P PM ROAD SIGN INSTALLER this procedure are in the results section. ABLATION - ATRIAL Routine 04/19/2019 2:26 Atrial Results for FLUTTER - RIGHT PM ROAD SIGN INSTALLER Fibrillation (HCC) this p rocedure are in the results section. ABLATION - WACA Routine 04/19/2019 2:26 Atrial Results f or PM ROAD SIGN INSTALLER Fibrillation (HCC) this proc edure are in the results section. HEART RHYTHM PROCEDURE Routine 04/19/2019 2:26 Atrial Re sults for PM ROAD SIGN INSTALLER Fibrillation (HCC) this proc edure are in the results section. HEART RHYTHM PROCEDURE Routine 04/19/2019 2:26 Atrial Re sults for PM ROAD SIGN INSTALLER Fibrillation (HCC) this proc edure are in the results section. HEART RHYTHM PROCEDURE Routine 04/19/2019 2:26 Atrial Re sults for PM ROAD SIGN INSTALLER Fibrillation (HCC) this proc edure are in the results section. ABLATION PVI Routine 04/19/2019 2:26 Atrial Results for PM ROAD SIGN INSTALLER Fibrillation (HCC) this proc edure are in the results section. ABG AND LYTES EG6+, Routine 04/19/2019 2:10 Resul ts for POCT, B PM ROAD SIGN INSTALLER this procedure are in the results section. ACT, POCT, B Routine 04/19/2019 2:[address] SIGN INSTALLER this procedure are in the results section. GLUCOSE POCT, B Routine 04/19/2019 2:02 Results f or PM ROAD SIGN INSTALLER this procedure are in the results section. ACT, POCT, B Routine 04/19/2019 1:[address] SIGN INSTALLER this procedure are in the results section. ABG AND LYTES EG6+, Routine 04/19/2019 Results for POCT, B 12:[address] SIGN INSTALLER this procedure are in the results section. ACT, POCT, B Routine 04/19/2019 Results for 12:[address] SIGN INSTALLER this procedure are in the results section. GLUCOSE POCT, B Routine 04/19/2019 Results for 12:[address] SIGN INSTALLER this procedure are in the results section. ACT, POCT, B Routine 04/19/2019 Results for 12:[address] SIGN INSTALLER this procedure are in the results section. PROTHROMBIN TIME (PT), STAT 04/19/2019 Resul ts for P 12:[address] SIGN INSTALLER this procedure are in the results section. ACT, POCT, B Routine 04/19/2019 Results for 11:[address] SIGN INSTALLER this procedure are in the results section. ACT, POCT, B Routine 04/19/2019 Results for 11:[address] SIGN INSTALLER this procedure are in the results section. ACT, POCT, B Routine 04/19/2019 Results for 11:[address] SIGN INSTALLER this procedure are in the results section. PROTHROMBIN TIME (PT), STAT 04/19/2019 Resul ts for P 10:[address] SIGN INSTALLER this procedure are in the results section. CBC WITH DIFFERENTIAL, STAT 04/19/2019 Resul ts for B 10:[address] SIGN INSTALLER this procedure are in the results section. BASIC METABOLIC PANEL, STAT 04/19/2019 Resul ts for S/P 10:[address] SIGN INSTALLER this procedure are in the results section. TYPE AND SCREEN STAT 04/19/2019 Results for 10:[address] SIGN INSTALLER this procedure are in the results section. GLUCOSE POCT, B Routine 04/19/2019 Results for 10:[address] SIGN INSTALLER this procedure are in the results section. ACT, POCT, B Routine 04/19/2019 Results for 10:[address] SIGN INSTALLER this procedure are in the results section. ECHO - INTRAPROCEDURAL Routine 04/19/2019 8:52 Re sults for IMAGES ONLY AM ROAD SIGN INSTALLER this procedure are in the results section. INR, POCT, B Routine 04/19/2019 8:[address] SIGN INSTALLER this procedure are in the results section. GLUCOSE POCT, B Routine 04/19/2019 8:37 Results f or AM ROAD SIGN INSTALLER this procedure are in the results section. [...] layer. For the complete report, see the [employer] Documents. Narrative 08/19/2019 1:52 PM CDT For the complete report, see the [employer] Documents. Final Impressions 1. Echocardiogram performed per [...] ECHO PROCEDURES HOLTER MONITOR - IN CLINIC MARINE SERVICE MANAGER (08/18/2019 10:48 AM CDT) [facility] [place] Method Time Signature SVE Max Per HOLTER [...] 54 bpm HOLTER SENTINEL VE Max Per [id number] HOLTER Hour Time SENTINEL SVE Percent 0 percent HOLTER Beats SENTINEL VE Max Per 1 count HOLTER Hour SENTINEL Max Heart Rate [id number] HOLTER Time SENTINEL Specimen (Source) Anatomical Collection Method Collection Time Re ceived Time Location / / Volume Laterality 08/18/2019 10:49 AM CDT Narrative This result has an attachment that is no t available. Tucker Rutherford P.A.-C. CV CARDIAC SERVICES PROCEDUR ES Performing Organization Address City/State/ZIP Code Phon e Number HOLTER SENTINEL HOLTER SENTINEL NA ECG 12 Lead (08/18/2019 10:23 AM CDT) [place] Method Time Signature Ventricular 66 BPM MUSE Rate ECG/Min IN Interval 202 ms MUSE QRSD Interval 118 ms MUSE QT Interval 480 ms MUSE QTC Interval 503 ms MUSE P [place] 73 degrees MUSE R [place] 94 degrees MUSE T Wave [place] 47 degrees MUSE CODED DIAGNOSIS MUSE Semi-Urgent [...] thoracic spine. 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 GUIDELINES FOR FOLLOW-UP of newly detect [...] thoracic spine. 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 GUIDELINES FOR FOLLOW-UP of newly detect [...] PROCEDURES ECG 12 Lead (04/21/2019 10:[address] SIGN INSTALLER) athologist Signature Ventricular Rate 73 BPM MUSE ECG/Min IN Interval 204 ms MUSE QRSD Interval 110 ms MUSE QT Interval 414 ms MUSE QTC Interval 456 ms MUSE P Caraway 69 degrees MUSE R [place] 104 degrees MUSE T Wave [place] 27 degrees MUSE Specimen Anatomical Collection Method Collection Time Receive d Time (Source) Location / / Volume Laterality 04/21/2019 10:47 04/21/[address] SIGN INSTALLER 10:[address] SIGN INSTALLER Impressions MUSE - 04/21/2019 10:[address] SIGN INSTALLER Normal sinus rhythm with 1st degree A-V [...] MUSE MUSE NA Magnesium (04/21/2019 6:[address] SIGN INSTALLER) athologist Signature Magnesium, S 2.0 1.7 - 2.3 04/21/2019 DTL mg/dL 7:[address] SIGN INSTALLER Specimen Anatomical Collection Method Collection Time Receive d Time (Source) Location / / Volume Laterality Blood (Blood, 04/21/2019 6:15 AM 04/21/19 20 6:39 Venous) ROAD SIGN INSTALLER AM ROAD SIGN INSTALLER Tucker Rutherford P.A.-C. LAB BLOOD ADD-ON Performing Organization Address [facility] Phon e Number [facility] - [address] [place] [address] [address] [place] [address] Laboratories-[facility] [address] [facility] (ABNORMAL) Prothrombin Time (PT) (04/21/2019 6:[address] SIGN INSTALLER) [facility] Method Time Signature Prothrombin 28.6 (H) 9.4 - 12.5 04/21/2019 DTL Time, P sec 6:[address] SIGN INSTALLER INR 2.6 0.9 - 1.1 04/21/2019 DTL 6:[address] SIGN INSTALLER Comment: ----ADDITIONAL INFORMATION---- Standard intensity warfarin therapeutic range: 2.0 to 3.0 ?? High intensity warfarin therapeutic rang e: 2.5 to 3.5 Specimen Anatomical Collection Method Collection Time Receive d Time (Source) Location / / Volume Laterality Blood (Blood, 04/21/2019 6:15 AM 04/21/19 20 6:39 Venous) ROAD SIGN INSTALLER AM ROAD SIGN INSTALLER rAia Houser APRN, C.N.P., M.S.N. LAB BLOOD ADD-ON Performing Organization Address City/[facility] Phon e Number [facility] - [address] [place] [address] [address] [place] [address] Laboratories-[address] (ABNORMAL) CBC with Differential, Blood (04/21/2019 6:[address] SIGN INSTALLER) [facility] Method Time Signature Hemoglobin 12.1 11.6 - 04/21/2019 DTL 15.0 g/dL 6:[address] SIGN INSTALLER Hematocrit 38.0 35.5 - 04/21/2019 DTL 44.9 % 6:[address] SIGN INSTALLER Erythrocytes 4.03 3.92 - 04/21/2019 DTL 5.13 6:[address] SIGN INSTALLER x10(12)/L MCV 94.3 78.2 - 04/21/2019 DTL 97.9 fL 6:[address] SIGN INSTALLER RBC Distrib Width 12.3 12.2 - 04/21/2019 DTL 16.1 % 6:[address] SIGN INSTALLER Platelet Count 296 157 - 371 04/21/2019 DTL x10(9)/L 6:[address] SIGN INSTALLER Leukocytes 11.7 (H) 3.4 - 9.6 04/21/2019 DTL x10(9)/L 6:[address] SIGN INSTALLER Neutrophils 8.57 (H) 1.56 - 04/21/2019 DTL 6.45 6:[address] SIGN INSTALLER x10(9)/L Lymphocytes 2.03 0.95 - 04/21/2019 DTL 3.07 6:[address] SIGN INSTALLER x10(9)/L Monocytes 0.91 (H) 0.26 - 04/21/2019 DTL 0.81 6:[address] SIGN INSTALLER x10(9)/L Eosinophils 0.14 0.03 - 04/21/2019 DTL 0.48 6:[address] SIGN INSTALLER x10(9)/L Basophils 0.08 0.01 - 04/21/2019 DTL 0.08 6:45 AM ROAD SIGN INSTALLER x10(9)/L Specimen Anatomical Collection Method Collection Time Receive d Time (Source) Location / / Volume Laterality Blood (Blood, 04/21/2019 6:15 AM 04/21/19 20 6:40 Venous) ROAD SIGN INSTALLER AM ROAD SIGN INSTALLER Marla Pham LAB BLOOD ADD-ON Performing Organization Address City/State/ZIP Code Phon e Number [facility] - [address] [place], [place] [address] [place] [address] [facility] [address] Creatinine with Estimated GFR (04/21/2019 6:[address] SIGN INSTALLER) P athologist Signature Creatinine 0.85 0.59 - 04/21/2019 DTL 1.04 mg/dL 7:[address] SIGN INSTALLER eGFR-Non 74 >=60 04/21/2019 DTL Black/ mL/min/BSA 7:[address] SIGN INSTALLER [place] Comment: ----ADDITIONAL INFORMATION---- Estimated GFR calculated using the 2009 CKD_EPI creatinine equation. eGFR-Black/ 85 >=60 mL/min/BSA 2019 7:[address] SIGN INSTALLER DTL Comment: ----ADDITIONAL INFORMATION---- Estimated GFR calculated using the 2009 CKD_EPI creatinine equation. Specimen Anatomical Collection Method Collection Time Receive d Time (Source) Location / / Volume Laterality Blood (Blood, 04/21/2019 6:15 AM 04/21/19 20 6:39 Venous) ROAD SIGN INSTALLER AM ROAD SIGN INSTALLER Marla RendonSEdilma LAB BLOOD ADD-ON Performing Organization Address City/State/ZIP Code Phon e Number [facility] - [address] BUN (Blood Urea Nitrogen) (04/21/2019 6:[address] SIGN INSTALLER) P athologist Signature BUN (Blood Urea 13 6 - 21 04/21/2019 DTL Nitrogen), S mg/dL 7:[address] SIGN INSTALLER Specimen Anatomical Collection Method Collection Time Receive d Time (Source) Location / / Volume Laterality Blood (Blood, 04/21/2019 6:15 AM 04/21/19 20 6:39 Venous) ROAD SIGN INSTALLER AM ROAD SIGN INSTALLER Marla RendonSEdilma LAB BLOOD ADD-ON Performing Organization Address City/State/ZIP Code Phon e Number [facility] - [address] Potassium (04/21/2019 6:[address] SIGN INSTALLER) P athologist Signature Potassium, S 5.0 3.6 - 5.2 04/21/2019 DTL mmol/L 7:[address] SIGN INSTALLER Specimen Anatomical Collection Method Collection Time Receive d Time (Source) Location / / Volume Laterality Blood (Blood, 04/21/2019 6:15 AM 04/21/19 20 6:39 Venous) ROAD SIGN INSTALLER AM ROAD SIGN INSTALLER Marla RendonSEdilma LAB BLOOD ADD-ON Performing Organization Address City/State/ZIP Code Phon e Number [facility] - [address] ECG 12 Lead (04/20/2019 10:[address] SIGN INSTALLER) P athologist Signature Ventricular Rate 82 BPM MUSE ECG/Min IN Interval 198 ms MUSE QRSD Interval 106 ms MUSE QT Interval 374 ms MUSE QTC Interval 436 ms MUSE P Caraway 67 degrees MUSE R Caraway 89 degrees MUSE T Wave Caraway -4 degrees MUSE Specimen Anatomical Collection Method Collection Time Receive d Time (Source) Location / / Volume Laterality 04/20/2019 10:44 04/21/2019 5:[address] SIGN INSTALLER AM ROAD SIGN INSTALLER Impressions MUSE - 04/21/2019 5:[address] SIGN INSTALLER Normal sinus rhythm ST and T wave [...] and Lateral 2 Views (04/20/2019 8:[address] SIGN INSTALLER) Anatomical Region Laterality Modality Chest, Thoracic RST LOS, Thoracic ARZ LOS, Thoracic N/A Digital Radiography FLA LOS Specimen (Source) Anatomical Collection Method Collection Time Re ceived Time Location / / Volume Laterality 04/20/2019 8:[address] SIGN INSTALLER Impressions 04/20/2019 8:[address] SIGN INSTALLER Since 06/29/2018, decreased lung volumes. No focal consolidation, or pneumothorax. Possible tiny left pleu ral effusion with associated atelectasis. Mild pulmonary vascular con gestion. New cardiomegaly. Aortic calcification. Surgical clips right uppe r quadrant. Narrative 04/20/2019 8:[address] SIGN INSTALLER EXAM: ??DX CHEST AP OR PA AND [...] DURES ECG 12 Lead (04/20/2019 6:[address] SIGN INSTALLER) [facility] [employer] Method Time Signature Ventricular 75 BPM MUSE Rate ECG/Min IN Interval 186 ms MUSE QRSD Interval 102 ms MUSE QT Interval 388 ms MUSE QTC Interval 433 ms MUSE P Caraway 72 degrees MUSE R Caraway 97 degrees MUSE T Wave Caraway -127 degrees MUSE CODED Atrial MUSE DIAGNOSIS fibrillation Specimen Anatomical Collection Method Collection Time Receive d Time (Source) Location / / Volume Laterality 04/20/2019 6:42 AM 0 8:54 RO[address] SIGN INSTALLER AM ROAD SIGN INSTALLER Impressions MUSE - 04/20/2019 8:[address] SIGN INSTALLER Normal sinus rhythm Rightward axis ST and [...] fibrill ation Reviewed by SPENCER Zimmerman Marla RendonS. ECG ORDERABLES Performing Organization Address City/State/ZIP Code Phon e Number MUSE MUSE NA (ABNORMAL) Prothrombin Time (PT) (04/20/2019 6:[address] SIGN INSTALLER) [facility] [employer] Method Time Signature Prothrombin 23.1 (H) 9.4 - 12.5 04/20/2019 DTL Time, P sec 7:[address] SIGN INSTALLER INR 2.1 0.9 - 1.1 04/20/2019 DTL 7:[address] SIGN INSTALLER Comment: ----ADDITIONAL INFORMATION---- Standard intensity warfarin therapeutic range: 2.0 to 3.0 ?? High intensity warfarin therapeutic rang e: 2.5 to 3.5 Specimen Anatomical Collection Method Collection Time Receive d Time (Source) Location / / Volume Laterality Blood (Blood, 04/20/2019 6:34 AM 04/20/19 20 7:04 Venous) ROAD SIGN INSTALLER AM ROAD SIGN INSTALLER Aria Houser APRN, C.N.P., M.S.N. LAB BLOOD ADD-ON Performing Organization Address City/State/ZIP Code Phon e Number [facility] - [address] [place], [place] [address] [place] [address] [facility] [address] (ABNORMAL) CBC with Differential, Blood (04/20/2019 6:[address] SIGN INSTALLER) [facility] gist Method Time Signature Hemoglobin 12.7 11.6 - 04/20/2019 DTL 15.0 g/dL 7:[address] SIGN INSTALLER Hematocrit 39.4 35.5 - 04/20/2019 DTL 44.9 % 7:[address] SIGN INSTALLER Erythrocytes 4.14 3.92 - 04/20/2019 DTL 5.13 7:[address] SIGN INSTALLER x10(12)/L MCV 95.2 78.2 - 04/20/2019 DTL 97.9 fL 7:[address] SIGN INSTALLER RBC Distrib Width 12.4 12.2 - 04/20/2019 DTL 16.1 % 7:[address] SIGN INSTALLER Platelet Count 362 157 - 371 04/20/2019 DTL x10(9)/L 7:[address] SIGN INSTALLER Leukocytes 12.0 (H) 3.4 - 9.6 04/20/2019 DTL x10(9)/L 7:[address] SIGN INSTALLER Neutrophils 8.06 (H) 1.56 - 04/20/2019 DTL 6.45 7:[address] SIGN INSTALLER x10(9)/L Lymphocytes 2.74 0.95 - 04/20/2019 DTL 3.07 7:[address] SIGN INSTALLER x10(9)/L Monocytes 0.93 (H) 0.26 - 04/20/2019 DTL 0.81 7:[address] SIGN INSTALLER x10(9)/L Eosinophils 0.17 0.03 - 04/20/2019 DTL 0.48 7:[address] SIGN INSTALLER x10(9)/L Basophils 0.10 (H) 0.01 - 04/20/2019 DTL 0.08 7:[address] SIGN INSTALLER x10(9)/L Specimen Anatomical Collection Method Collection Time Receive d Time (Source) Location / / Volume Laterality Blood (Blood, 04/20/2019 6:34 AM 04/20/19 20 7:04 Venous) ROAD SIGN INSTALLER AM ROAD SIGN INSTALLER Marla Pham LAB BLOOD ADD-ON Performing Organization Address City/[facility] Phon e Number [facility] - [address] [place], [place] [address] [place] [address] Creatinine with Estimated GFR (04/20/2019 6:[address] SIGN INSTALLER) athologist Signature Creatinine 0.89 0.59 - 04/20/2019 DTL 1.04 mg/dL 8:[address] SIGN INSTALLER eGFR-Non 70 >=60 04/20/2019 DTL Black/ mL/min/BSA 8:[address] SIGN INSTALLER [place] Comment: ----ADDITIONAL INFORMATION---- Estimated GFR calculated using the 2009 CKD_EPI creatinine equation. eGFR-Black/ 80 >=60 mL/min/BSA 2019 8:[address] SIGN INSTALLER DTL Comment: ----ADDITIONAL INFORMATION---- Estimated GFR calculated using the 2009 CKD_EPI creatinine equation. Specimen Anatomical Collection Method Collection Time Receive d Time (Source) Location / / Volume Laterality Blood (Blood, 04/20/2019 6:34 AM 04/20/19 20 7:04 Venous) ROAD SIGN INSTALLER AM ROAD SIGN INSTALLER Marla RendonSEdilma LAB BLOOD ADD-ON Performing Organization Address City/State/[facility] Code Phon e Number [facility] - [address] [place], [place] [address] [place] [address] BUN (Blood Urea Nitrogen) (04/20/2019 6:[address] SIGN INSTALLER) athologist Signature BUN (Blood Urea 13 6 - 21 04/20/2019 DTL Nitrogen), S mg/dL 8:[address] SIGN INSTALLER Specimen Anatomical Collection Method Collection Time Receive d Time (Source) Location / / Volume Laterality Blood (Blood, 04/20/2019 6:34 AM 04/20/19 20 7:04 Venous) ROAD SIGN INSTALLER AM ROAD SIGN INSTALLER Marla RendonS. LAB BLOOD ADD-ON Performing Organization Address City/[facility]/ZIP Code Phon e Number [facility] - [address] Potassium (04/20/2019 6:[address] SIGN INSTALLER) P athologist Signature Potassium, S 4.7 3.6 - 5.2 04/20/2019 DTL mmol/L 8:[address] SIGN INSTALLER Specimen Anatomical Collection Method Collection Time Receive d Time (Source) Location / / Volume Laterality Blood (Blood, 04/20/2019 6:34 AM 04/20/19 20 7:04 Venous) ROAD SIGN INSTALLER AM ROAD SIGN INSTALLER Marla Lora.S. LAB BLOOD ADD-ON Performing Organization Address City/[facility]/ZIP Code Phon e Number [facility] - [address] Magnesium (04/20/2019 6:[address] SIGN INSTALLER) P athologist Signature Magnesium, S 2.1 1.7 - 2.3 04/20/2019 DTL mg/dL 8:[address] SIGN INSTALLER Specimen Anatomical Collection Method Collection Time Receive d Time (Source) Location / / Volume Laterality Blood (Blood, 04/20/2019 6:34 AM 04/20/19 20 7:04 Venous) ROAD SIGN INSTALLER AM ROAD SIGN INSTALLER Marla RendonS. LAB BLOOD ADD-ON Performing Organization Address City/State/ZIP Code Phon e Number [facility] - [address] (ABNORMAL) Glucose, POCT (04/19/2019 4:[address] SIGN INSTALLER) Analysis Performed At Patho logist Time Signature Glucose, POCT, 230 (H) 70 - 140 04/19/2019 PCLX B mg/dL 4:[address] SIGN INSTALLER Last Intake 3-4 hours 04/19/2019 PCLX 4:[address] SIGN INSTALLER Specimen Anatomical Collection Method Collection Time Receive d Time (Source) Location / / Volume Laterality Blood 04/19/2019 4:12 PM 0 4:19 [address] SIGN INSTALLER PM ROAD SIGN INSTALLER Unknown Provider LAB POCT ORDERABLES-MANUAL Performing Organization Address City/State/ZIP Code Phon e Number POC [facility] [address] [place] [address] PCLX [facility] [place] [address] Farina POC [address] (ABNORMAL) Magnesium (04/19/2019 3:[address] SIGN INSTALLER) P athologist Signature Magnesium, S 1.5 (L) 1.7 - 2.3 04/19/2019 DTL mg/dL 5:[address] SIGN INSTALLER Specimen Anatomical Collection Method Collection Time Receive d Time (Source) Location / / Volume Laterality Blood (Blood, 04/19/2019 3:42 PM 04/19/19 20 4:28 Venous) ROAD SIGN INSTALLER PM ROAD SIGN INSTALLER Kadeem Soto APRNNMarcel., M.S.N. LAB BLOOD ADD-ON Performing Organization Address City/State/ZIP Code Phon e Number [facility] - [address] [place], [place] [address] [place] [address] [facility]ly [facility] [address] Potassium (04/19/2019 3:[address] SIGN INSTALLER) P athologist Signature Potassium, P 3.8 3.6 - 5.2 04/19/2019 [facility] mmol/L 4:[address] SIGN INSTALLER Specimen Anatomical Collection Method Collection Time Receive d Time (Source) Location / / Volume Laterality Blood (Blood, 04/19/2019 3:42 PM 04/19/19 20 3:49 Venous) ROAD SIGN INSTALLER PM ROAD SIGN INSTALLER Kadeem Soto APRNN.P., M.S.N. LAB BLOOD ADD-ON Performing Organization Address City/State/ZIP Code Phon e Number [facility] - [address] [place], [place] [address] [place] [address] [facility] [address] (ABNORMAL) Prothrombin Time (PT) (04/19/2019 2:[address] SIGN INSTALLER) Patholo gist Method Time Signature Prothrombin 29.8 (H) 9.4 - 12.5 04/19/2019 [facility] Time, P sec 3:[address] SIGN INSTALLER INR 2.7 0.9 - 1.1 04/19/2019 [facility] 3:[address] SIGN INSTALLER Comment: ----ADDITIONAL INFORMATION---- Standard intensity warfarin therapeutic range: 2.0 to 3.0 ?? High intensity warfarin therapeutic rang e: 2.5 to 3.5 Specimen Anatomical Collection Method Collection Time Receive d Time (Source) Location / / Volume Laterality Blood (Blood, 04/19/2019 2:53 PM 04/19/19 20 3:02 Venous) ROAD SIGN INSTALLER PM ROAD SIGN INSTALLER Tucker Rutherford P.A.-C. LAB BLOOD ADD-ON Performing Organization Address City/State/ZIP Code Phon e Number [facility] - [address] [place] [address] [place] [address] [facility] [address] ABLATION PVI, CARTO, ULTRASOUND GUIDANCE FOR VASCULAR ACCESS, INTRACARDIAC ECHOCARDIOGRAM, ABLATION - WACA, ABLATION - ATRIAL FLUTTER - RIGHT (04/19/2019 2:[address] SIGN INSTALLER) Anatomical Region Laterality Modality X-Ray Angiography Specimen (Source) Anatomical Collection Method Collection Time Re ceived Time Location / / Volume Laterality 04/19/2019 10:[address] SIGN INSTALLER Narrative 04/20/2019 2:[address] SIGN INSTALLER For the complete report, see the Order-L [...] report, see the Order-L evel Documents. Marla MarshallBEdilmaS. CV ELECTROPHYSIOLOGY PROCS (ABNORMAL) ABG and Elian POCT (04/19/2019 2:[address] SIGN INSTALLER) P athologist Signature Sample Site, Artline 04/19/2019 PCLX POCT 2:[address] SIGN INSTALLER Comment: ----ADDITIONAL INFORMATION---- Performed at the Point of Care pH, POCT 7.42 7.35 - 7.45 04/19/2019 2:[address] SIGN INSTALLER PCLX Comment: ----ADDITIONAL INFORMATION---- Performed at the Point of Care pCO2, POCT 44 32 - 45 mm Hg 04/19/2019 2:[address] SIGN INSTALLER PC LX Comment: ----ADDITIONAL INFORMATION---- Performed at the Point of Care pO2, POCT 455 (H) 83 - 108 mm Hg 04/19/2019 2:[address] SIGN INSTALLER PC LX Comment: ----ADDITIONAL INFORMATION---- Performed at the Point of Care Base, POCT 4 (H) -2 - 3 mmol/L 04/19/2019 2:[address] SIGN INSTALLER PC LX Comment: ----ADDITIONAL INFORMATION---- Performed at the Point of Care HCO3, POCT 29 (H) 22 - 26 mmol/L 04/19/2019 2:[address] SIGN INSTALLER P CLX Comment: ----ADDITIONAL INFORMATION---- Performed at the Point of Care Sodium, POCT, B 137 135 - 145 mmol/L 04/19/2019 2:[address] SIGN INSTALLER PCLX Comment: ----ADDITIONAL INFORMATION---- Performed at the Point of Care Potassium, POCT, B 3.0 (L) 3.6 - 5.2 mmol/L 04/19/2019 2:[address] SIGN INSTALLER PCLX Comment: ----ADDITIONAL INFORMATION---- Performed at the Point of Care Hematocrit, POCT, B 36.0 35.5 - 44.9 % 04/19/2019 2:[address] SIGN INSTALLER PCLX Comment: ----ADDITIONAL INFORMATION---- Performed at the Point of Care Specimen Anatomical Collection Method Collection Time Receive d Time (Source) Location / / Volume Laterality Blood 04/19/2019 2:10 PM 0 2:16 [address] SIGN INSTALLER PM ROAD SIGN INSTALLER Unknown Provider LAB POCT ORDERABLES - DEVICE Performing Organization Address City/State/ZIP Code Phon e Number POC [facility] [address] [place] [address] [place] [address] Krista POC [address] (ABNORMAL) ACT (Activated Clotting Time), POCT (04/19/2019 2:[address] SIGN INSTALLER) athologist Signature Activated 167 (H) 84 - 139 04/19/2019 PCSM Clotting Time, sec 2:[address] SIGN INSTALLER POCT Specimen Anatomical Collection Method Collection Time Receive d Time (Source) Location / / Volume Laterality Blood 04/19/2019 2:03 PM 0 2:16 [address] SIGN INSTALLER PM ROAD SIGN INSTALLER Unknown Provider LAB POCT ORDERABLES - DEVICE Performing Organization Address City/[facility]/ZIP [facility] Phon e Number POC [facility] [address] [place], [place] [address] [place] [address] Farina POC [address] (ABNORMAL) Glucose, POCT (04/19/2019 2:[address] SIGN INSTALLER) athologist Signature Glucose, POCT, 193 (H) 70 - 140 04/19/2019 PCLX B mg/dL 2:[address] SIGN INSTALLER Specimen Anatomical Collection Method Collection Time Receive d Time (Source) Location / / Volume Laterality Blood 04/19/2019 2:02 PM 0 2:04 [address] SIGN INSTALLER PM ROAD SIGN INSTALLER Unknown Provider LAB POCT ORDERABLES-MANUAL Performing Organization Address City/[facility] Phon e Number POC [facility] [address] [place] [address] [place] [address] Farina POC [address] (ABNORMAL) ACT (Activated Clotting Time), POCT (04/19/2019 1:[address] SIGN INSTALLER) athologist Signature Activated 300 (H) 84 - 139 04/19/2019 PCSM Clotting Time, sec 1:[address] SIGN INSTALLER POCT Specimen Anatomical Collection Method Collection Time Receive d Time (Source) Location / / Volume Laterality Blood 04/19/2019 1:19 PM 0 1:30 RO[address] SIGN INSTALLER PM ROAD SIGN INSTALLER Unknown Provider LAB POCT ORDERABLES - DEVICE Performing Organization Address City/[facility] Phon e Number POC [facility] [address] [place], [place] [address] [place] [address] Farina POC [address] (ABNORMAL) ABG and Lytes, POCT (04/19/2019 12:[address] SIGN INSTALLER) P athologist Signature Sample Site, Artline 04/19/2019 PCLX POCT 1:[address] SIGN INSTALLER Comment: ----ADDITIONAL INFORMATION---- Performed at the Point of Care pH, POCT 7.41 7.35 - 7.45 04/19/2019 1:[address] SIGN INSTALLER PCLX Comment: ----ADDITIONAL INFORMATION---- Performed at the Point of Care pCO2, POCT 43 32 - 45 mm Hg 04/19/2019 1:[address] SIGN INSTALLER PC LX Comment: ----ADDITIONAL INFORMATION---- Performed at the Point of Care pO2, POCT 160 (H) 83 - 108 mm Hg 04/19/2019 1:[address] SIGN INSTALLER PC LX Comment: ----ADDITIONAL INFORMATION---- Performed at the Point of Care Base, POCT 3 -2 - 3 mmol/L 04/19/2019 1:[address] SIGN INSTALLER PC LX Comment: ----ADDITIONAL INFORMATION---- Performed at the Point of Care HCO3, POCT 27 (H) 22 - 26 mmol/L 04/19/2019 1:[address] SIGN INSTALLER P CLX Comment: ----ADDITIONAL INFORMATION---- Performed at the Point of Care Sodium, POCT, B 137 135 - 145 mmol/L 04/19/2019 1:[address] SIGN INSTALLER PCLX Comment: ----ADDITIONAL INFORMATION---- Performed at the Point of Care Potassium, POCT, B 3.3 (L) 3.6 - 5.2 mmol/L 04/19/2019 1:[address] SIGN INSTALLER PCLX Comment: ----ADDITIONAL INFORMATION---- Performed at the Point of Care Hematocrit, POCT, B 39.0 35.5 - 44.9 % 04/19/2019 1:[address] SIGN INSTALLER PCLX Comment: ----ADDITIONAL INFORMATION---- Performed at the Point of Care Specimen Anatomical Collection Method Collection Time Receive d Time (Source) Location / / Volume Laterality Blood 04/19/2019 12:58 04/19/2019 1:[address] SIGN INSTALLER PM ROAD SIGN INSTALLER Unknown Provider LAB POCT ORDERABLES - DEVICE Performing Organization Address City/State/ZIP Code Phon e Number POC [facility] [address] [place] [address] [place] [address] Farina POC [address] (ABNORMAL) ACT (Activated Clotting Time), POCT (04/19/2019 12:[address] SIGN INSTALLER) athologist Signature Activated 369 (H) 84 - 139 04/19/2019 PCSM Clotting Time, sec 1:[address] SIGN INSTALLER POCT Specimen Anatomical Collection Method Collection Time Receive d Time (Source) Location / / Volume Laterality Blood 04/19/2019 12:48 04/19/2019 1:[address] SIGN INSTALLER PM ROAD SIGN INSTALLER Unknown Provider LAB POCT ORDERABLES - DEVICE Performing Organization Address City/[facility] Phon e Number POC [facility] [address] [place], [place] [address] [place] [address] Farina POC [address] [place] [address] (ABNORMAL) Glucose, POCT (04/19/2019 12:[address] SIGN INSTALLER) athologist Signature Glucose, POCT, 199 (H) 70 - 140 04/19/2019 PCLX B mg/dL 12:[address] SIGN INSTALLER Site ARTLINE 04/19/2019 PCLX 12:[address] SIGN INSTALLER Specimen Anatomical Collection Method Collection Time Receive d Time (Source) Location / / Volume Laterality Blood 04/19/2019 12:47 04/19/[address] SIGN INSTALLER 12:[address] SIGN INSTALLER Unknown Provider LAB POCT ORDERABLES-MANUAL Performing Organization Address City/[facility]/ZIP [facility] Phon e Number POC [facility] [address] [place] [address] [place] [address] Farina POC 200 [facility] (ABNORMAL) ACT (Activated Clotting Time), POCT (04/19/2019 12:[address] SIGN INSTALLER) athologist Signature Activated 341 (H) 84 - 139 04/19/2019 PCSM Clotting Time, sec 12:[address] SIGN INSTALLER POCT Specimen Anatomical Collection Method Collection Time Receive d Time (Source) Location / / Volume Laterality Blood 04/19/2019 12:19 04/19/[address] SIGN INSTALLER 12:[address] SIGN INSTALLER Unknown Provider LAB POCT ORDERABLES - DEVICE Performing Organization Address City/[facility] Phon e Number POC [facility] [address] [place], [place] [address] LABS [place], [place] [id number] [place] [address] (ABNORMAL) Prothrombin Time (PT) (04/19/2019 12:[address] SIGN INSTALLER) [facility] gist Method Time Signature Prothrombin 95.8 (H) 9.4 - 12.5 04/19/2019 [facility] Time, P sec 12:[address] SIGN INSTALLER INR 8.3 (CH) 0.9 - 1.1 04/19/2019 [facility] 12:[address] SIGN INSTALLER Comment: ----ADDITIONAL INFORMATION---- Standard intensity warfarin therapeutic range: 2.0 to 3.0 ?? High intensity warfarin therapeutic rang e: 2.5 to 3.5 Specimen Anatomical Collection Method Collection Time Receive d Time (Source) Location / / Volume Laterality Blood (Blood, 04/19/2019 12:16 04/19/2019 Venous) PM ROAD SIGN INSTALLER 12:[address] SIGN INSTALLER Ana Soto APRN.N.Howard., M.S.N. LAB BLOOD ADD-ON Performing Organization Address City/State/ZIP Code Phon e Number [facility] - [address] [place], [place] [address] (ABNORMAL) ACT (Activated Clotting Time), POCT (04/19/2019 11:[address] SIGN INSTALLER) athologist Signature Activated 296 (H) 84 - 139 04/19/2019 PCSM Clotting Time, sec 12:[address] SIGN INSTALLER POCT Specimen Anatomical Collection Method Collection Time Receive d Time (Source) Location / / Volume Laterality Blood 04/19/2019 11:55 04/19/[address] SIGN INSTALLER 12:[address] SIGN INSTALLER Unknown Provider LAB POCT ORDERABLES - DEVICE Performing Organization Address City/[facility]/ZIP [facility] Phon e Number POC [facility] [address] [place], [place] [address] LABS [place], [place] [id number] [place] [address] POC [address] [facility] (ABNORMAL) ACT (Activated Clotting Time), POCT (04/19/2019 11:[address] SIGN INSTALLER) athologist Signature Activated 353 (H) 84 - 139 04/19/2019 PCSM Clotting Time, sec 11:[address] SIGN INSTALLER POCT Specimen Anatomical Collection Method Collection Time Receive d Time (Source) Location / / Volume Laterality Blood 04/19/2019 11:27 04/19/[address] SIGN INSTALLER 11:[address] SIGN INSTALLER Unknown Provider LAB POCT ORDERABLES - DEVICE Performing Organization Address City/[facility] Code Phon e Number POC [facility] [address] [place], [place] [address] LABS [place] [id number] [place] [address] (ABNORMAL) ACT (Activated Clotting Time), POCT (04/19/2019 11:[address] SIGN INSTALLER) athologist Signature Activated 296 (H) 84 - 139 04/19/2019 [facility] Clotting Time, sec 11:[address] SIGN INSTALLER POCT Specimen Anatomical Collection Method Collection Time Receive d Time (Source) Location / / Volume Laterality Blood 04/19/2019 11:05 04/19/[address] SIGN INSTALLER 11:[address] SIGN INSTALLER Unknown Provider LAB POCT ORDERABLES - DEVICE Performing Organization Address City/[facility] Phon e Number POC [facility] INPATIENT [address] [place], [place] [address] LABS [place], [place] [id number] [place] [address] (ABNORMAL) Basic Metabolic Panel (04/19/2019 10:[address] SIGN INSTALLER) athologist Signature Potassium, P 3.6 3.6 - 5.2 04/19/2019 ST[facility] mmol/L 11:[address] SIGN INSTALLER Sodium, P 139 135 - 145 04/19/2019 [facility] mmol/L 11:[address] SIGN INSTALLER Chloride, P 100 98 - 107 04/19/2019 [facility] mmol/L 11:[address] SIGN INSTALLER Bicarbonate, P 25 22 - 29 04/19/2019 [facility] mmol/L 11:[address] SIGN INSTALLER Anion Gap, P 14 7 - 15 04/19/2019 [facility] 11:[address] SIGN INSTALLER BUN (Blood Urea 12 6 - 21 04/19/2019 [facility] Nitrogen), P mg/dL 11:[address] SIGN INSTALLER Creatinine 0.76 0.59 - 04/19/2019 [facility] 1.04 mg/dL 11:[address] SIGN INSTALLER eGFR-Black/Afric >90 >=60 04/19/2019 [facility] an [place] mL/min/BSA 11:[address] SIGN INSTALLER Comment: ----ADDITIONAL INFORMATION---- Estimated GFR calculated using the 2009 CKD_EPI creatinine equation. eGFR Non-Black/ 84 >=60 mL/min/BSA 04/19/2019 11:[address] SIGN INSTALLER [facility] Comment: ----ADDITIONAL INFORMATION---- Estimated GFR calculated using the 2009 CKD_EPI creatinine equation. Calcium, Total, P 8.8 8.8 - 10.2 mg/dL 04/19/2019 11:[address] SIGN INSTALLER STMA Glucose, P 210 (H) 70 - 140 mg/dL 04/19/2019 11:[address] SIGN INSTALLER [facility] Specimen Anatomical Collection Method Collection Time Receive d Time (Source) Location / / Volume Laterality Blood (Blood, 04/19/2019 10:46 04/19/2019 Venous) AM ROAD SIGN INSTALLER 11:[address] SIGN INSTALLER Renetta Greer APRN, C.N.P., D.N.P. LAB BLOOD ADD-ON Performing Organization Address City/State/ZIP Code Phon e Number [facility] - [address] [place], [place] [address] [place] [address] Laboratories-[facility] [address] (ABNORMAL) CBC with Differential, Blood (04/19/2019 10:[address] SIGN INSTALLER) [facility] Method Time Signature Hemoglobin 13.6 11.6 - 04/19/2019 [facility] 15.0 g/dL 11:[address] SIGN INSTALLER Hematocrit 40.1 35.5 - 04/19/2019 [facility] 44.9 % 11:[address] SIGN INSTALLER Erythrocytes 4.42 3.92 - 04/19/2019 STMA 5.13 11:[address] SIGN INSTALLER x10(12)/L MCV 90.7 78.2 - 04/19/2019 [facility] 97.9 fL 11:[address] SIGN INSTALLER RBC Distrib Width 11.9 (L) 12.2 - 04/19/2019 [facility] 16.1 % 11:[address] SIGN INSTALLER Platelet Count 359 157 - 371 04/19/2019 [facility] x10(9)/L 11:[address] SIGN INSTALLER Leukocytes 9.0 3.4 - 9.6 04/19/2019 [facility] x10(9)/L 11:[address] SIGN INSTALLER Neutrophils 5.07 1.56 - 04/19/2019 ST[facility] 6.45 11:[address] SIGN INSTALLER x10(9)/L Lymphocytes 2.74 0.95 - 04/19/2019 [facility] 3.07 11:[address] SIGN INSTALLER x10(9)/L Monocytes 0.65 0.26 - 04/19/2019 [facility] 0.81 11:[address] SIGN INSTALLER x10(9)/L Eosinophils 0.40 0.03 - 04/19/2019 [facility] 0.48 11:[address] SIGN INSTALLER x10(9)/L Basophils 0.14 (H) 0.01 - 04/19/2019 ST[facility] 0.08 11:[address] SIGN INSTALLER x10(9)/L Specimen Anatomical Collection Method Collection Time Receive d Time (Source) Location / / Volume Laterality Blood (Blood, 04/19/2019 10:46 04/19/2019 Venous) AM ROAD SIGN INSTALLER 11:[address] SIGN INSTALLER Ana Pickett APRN.N.P., D.N.P. LAB BLOOD ADD-ON Performing Organization Address [facility] Phon e Number [facility] [address] (ABNORMAL) Prothrombin Time (PT) (04/19/2019 10:[address] SIGN INSTALLER) [facility] Method Time Signature Prothrombin 58.0 (H) 9.4 - 12.5 04/19/2019 [facility] Time, P sec 11:[address] SIGN INSTALLER INR 5.1 (CH) 0.9 - 1.1 04/19/2019 [facility] 11:[address] SIGN INSTALLER Comment: ----ADDITIONAL INFORMATION---- Standard intensity warfarin therapeutic range: 2.0 to 3.0 ?? High intensity warfarin therapeutic rang e: 2.5 to 3.5 Specimen Anatomical Collection Method Collection Time Receive d Time (Source) Location / / Volume Laterality Blood (Blood, 04/19/2019 10:46 04/19/2019 Venous) AM ROAD SIGN INSTALLER 11:[address] SIGN INSTALLER Renetta Greer APRN C.N.P., D.N.P. LAB BLOOD ADD-ON Performing Organization Address City/[facility] Phon e Number [facility] [address] Type and Screen (with reflex Antibody ID) (04/19/2019 10:[address] SIGN INSTALLER) [facility] gist Method Time Signature ABORh A Pos Not 04/19/2019 STRM applicable 11:[address] SIGN INSTALLER Antibody Negative Negative 04/19/2019 STRM Screen 11:[address] SIGN INSTALLER Type & Screen 04/22/2019 04/19/2019 STRM Expiration 23:59 11:[address] SIGN INSTALLER Testing [place] DEFAULT 04/19/2019 STRM Location 11:[address] SIGN INSTALLER Specimen Anatomical Collection Method Collection Time Receive d Time (Source) Location / / Volume Laterality Blood (Arm, 04/19/2019 10:45 04/19/2019 Right) AM ROAD SIGN INSTALLER 11:[address] SIGN INSTALLER Renetta Greer APRN C.N.P., D.N.P. LAB BLOOD BANK T EST ORDERABLES Performing Organization Address City/State/ZIP Code Phon e Number [facility] - [address] [place], [place] [address] [place] [address] [facility] [address] (ABNORMAL) Glucose, POCT (04/19/2019 10:[address] SIGN INSTALLER) athologist Signature Glucose, POCT, 206 (H) 70 - 140 04/19/2019 [facility] B mg/dL 10:[address] SIGN INSTALLER Site ARTLINE 04/19/2019 [facility] 10:[address] SIGN INSTALLER Specimen Anatomical Collection Method Collection Time Receive d Time (Source) Location / / Volume Laterality Blood 04/19/2019 10:44 04/19/[address] SIGN INSTALLER 10:[address] SIGN INSTALLER Unknown Provider LAB POCT ORDERABLES-MANUAL Performing Organization Address City/State/ZIP Code Phon e Number POC [facility] [address] [place] [address] [place] [address] [place] POC [address] (ABNORMAL) ACT (Activated Clotting Time), POCT (04/19/2019 10:[address] SIGN INSTALLER) athologist Signature Activated 341 (H) 84 - 139 04/19/2019 PCS[facility] Clotting Time, sec 10:[address] SIGN INSTALLER POCT Specimen Anatomical Collection Method Collection Time Receive d Time (Source) Location / / Volume Laterality Blood 04/19/2019 10:41 04/19/[address] SIGN INSTALLER 10:[address] SIGN INSTALLER Unknown Provider LAB POCT ORDERABLES - DEVICE Performing Organization Address [facility] Phon e Number POC [facility] INPATIENT [address] [place], [place] [address] [place] [address] [place] POC [address] [place] [address] Echo - Intraprocedural Images Only (04/19/2019 8:[address] SIGN INSTALLER) Specimen (Source) Anatomical Location Collection Method / Collectio n Time Received Time / Laterality Volume Narrative CV EIMS - 04/21/2019 8:[address] SIGN INSTALLER Echocardiographic images obtained during EP. See EP report for findings. Marla Pham CV ECHO PROCEDURES Performing Organization Address [facility] Phon e Number CV EIMS NA INR, POCT (04/19/2019 8:[address] SIGN INSTALLER) P athologist Signature INR, POCT, B 2.4 04/19/2019 PCED 11:[address] SIGN INSTALLER Comment: ----ADDITIONAL INFORMATION---- Standard intensity warfarin therapeutic range: 2.0 to 3.0 ?? High intensity warfarin therapeutic rang e: 2.5 to 3.5 Specimen Anatomical Collection Method Collection Time Receive d Time (Source) Location / / Volume Laterality 04/19/2019 8:[address] SIGN INSTALLER 11:[address] SIGN INSTALLER Unknown Provider LAB POCT ORDERABLES - DEVICE Performing Organization Address [facility] Phon e Number POC [facility] [address] [place] [address] OUTPATIENT LABS [place] [address] [place] POC [address] [facility] (ABNORMAL) Glucose, POCT (04/19/2019 8:[address] SIGN INSTALLER) P athologist Signature Glucose, POCT, 224 (H) 70 - 140 04/19/2019 [facility] B mg/dL 8:[address] SIGN INSTALLER Specimen Anatomical Collection Method Collection Time Receive d Time (Source) Location / / Volume Laterality Blood 04/19/2019 8:37 AM 0 8:41 [address] SIGN INSTALLER AM ROAD SIGN INSTALLER Unknown Provider LAB POCT ORDERABLES-MANUAL Performing Organization Address City/State/ZIP Code Phon e Number POC [facility] [address] [place] [address] PCLX [facility] [place] [address] [place] POC [address] documented in this encounter Visit Diagnoses Diagnosis Atrial Fibrillation Paroxysmal (HCC) - P rimary Atrial Fibrillation Unspecified Flutter Atrial (HCC) Atrial Fibrillation Paroxysmal (HCC) Apnea Sleep Obstructive Diabetes Mellitus Type 2 Without Complic ation (HCC) Anticoagulant Therapy 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) Flutter Atrial (HCC) Atrial Fibrillation Unspecified Flutter Atrial (HCC) Atrial Fibrillation Paroxysmal (HCC) Flutter Atrial (HCC) Atrial Fibrillation Paroxysmal (HCC) documented in this encounter Administered Medications Inactive Administered Medications - up to 3 most recent administrations Medication Order MAR Action Action Date Dose Rate Site acetaminophen tablet 1,000 mg Given 04/21/2019 9:[address] SIGN INSTALLER 1,000 mg (TYLENOL) 1,000 mg, oral, Every 6 hours PRN, mild pain or score 1-3 of 10, Starting on Fri04/19/19 at 1502, Postprocedure (CV) benzocaine-menthol 15-3.6 mg per lozenge 1 Given 04/21 9:[address] SIGN INSTALLER 1 lozenge lozenge (CEPACOL) 1 lozenge, oral, Every 4 hours PRN, sore throat, Starting on Fri04/19/19 at 0934, Postprocedure (CV) Given 04/21/2019 4:[address] SIGN INSTALLER 1 lozenge Given 04/20/2019 9:[address] SIGN INSTALLER 1 lozenge clotrimazole-betamethasone 1-0.05 % Given 04/21/2019 8:[address] SIGN INSTALLER 1 application cream 1 application (LOTRISONE) 1 application, topical, 2 times daily, First dose on Fri04/19/19 at 2100, Postprocedure (CV) Given 04/20/2019 8:[address] SIGN INSTALLER 1 application Given 04/20/2019 8:[address] SIGN INSTALLER 1 application docusate sodium capsule 100 mg (COLACE) Given 04/21/2019 10:[address] SIGN INSTALLER 100 mg 100 mg, oral, 2 times daily PRN, constipation, Starting on Fri04/19/19 at 1502, Postprocedure (CV), Do NOT crush or chew. DULoxetine DR capsule 30 mg (CYMBALTA) Given 04/21/2019 8:[address] SIGN INSTALLER 30 mg 30 mg, oral, 2 times daily, First dose on Fri04/19/19 at 2100, Postprocedure (CV), See tube feeding guidelines for tube feeding administration instructions. Given 04/20/2019 8:[address] SIGN INSTALLER 30 mg Given 04/20/2019 8:[address] SIGN INSTALLER 30 mg ferrous sulfate tablet 65 mg of iron Given 04/21/2019 8:[address] SIGN INSTALLER 65 mg of iron 65 mg of iron, oral, Daily, First dose on Fri04/20/19 at 0900, Postprocedure (CV) Given 04/20/2019 8:[address] SIGN INSTALLER 65 mg of iron flecainide tablet 100 mg (TAMBOCOR) Given 04/21/2019 8:[address] SIGN INSTALLER 100 mg 100 mg, oral, 2 times daily, First dose on Fri04/19/19 at 2100 Given 04/20/2019 8:[address] SIGN INSTALLER 100 mg Given 04/20/2019 8:[address] SIGN INSTALLER 100 mg fluticasone furoate 100 mcg/actuation inhaler Given 8:[address] SIGN INSTALLER 1 puff 1 puff (ARNUITY ELLIPTA) 1 puff, inhalation, Daily, First dose on Fri04/20/19 at 0900, Postprocedure (CV), Rinse mouth with water after use to reduce aftertaste and incidence of candidiasis. Do not swallow. Given 04/20/2019 8:[address] SIGN INSTALLER 1 puff furosemide injection 20 mg (LASIX) Given 04/20/2019 9:[address] SIGN INSTALLER 20 mg 20 mg, intravenous, Once, On Fri04/20/19 at 0700, For 1 dose, Adults: Doses less than 120 mg: IV push over 20 mg/minute. Doses 120 mg or greater: IVPB at 4 mg/minute. Peds/Neonates: Doses less than 120 mg over 0.5 mg/kg/minute. Doses 120 mg or greater: IVPB at 4 mg/minute. furosemide injection 20 mg (LASIX) Given 04/20/2019 1:[address] SIGN INSTALLER 20 mg 20 mg, intravenous, Once, On Fri04/20/19 at 1330, For 1 dose, N/a furosemide injection 40 mg (LASIX) Given 04/21/2019 6:[address] SIGN INSTALLER 40 mg 40 mg, intravenous, Once, On Fri04/21/19 at 0700, For 1 dose, N/a levothyroxine tablet 25 mcg (SYNTHROID, Given 04/21/2019 6:[address] SIGN INSTALLER 25 mcg LEVOTHROID) 25 mcg, oral, Daily before breakfast, First dose on Fri04/20/19 at 0700, Postprocedure (CV) Given 04/20/2019 5:[address] SIGN INSTALLER 25 mcg magnesium sulfate in water IVPB 2 g New Bag 04/19/2019 6:[address] SIGN INSTALLER 2 g 25 mL/hr 2 g, intravenous, at 25 mL/hr, Administer over 120 Minutes, Once, On Fri04/19/19 at 1745, For 1 dose, Over 2 hours. premix bag metFORMIN tablet 500 mg (GLUCOPHAGE) Given 04/21/2019 8:[address] SIGN INSTALLER 500 mg 500 mg, oral, 2 times daily with meals, First dose on Fri04/19/19 at 1700 Given 04/20/2019 5:[address] SIGN INSTALLER 500 mg Given 04/20/2019 8:[address] SIGN INSTALLER 500 mg methyl salicylate-menthol 30-10 % cream 1 application (ICY HOT) 1 application, topical, Every 2 hour PRN, muscle/joint pain, Starting on Fri04/19/19 at 1628, @@ Generic Substitution for BenGay @@ @ metoprolol tartrate tablet 50 mg (LOPRES SOR) Given 04/21/2019 8:[address] SIGN INSTALLER 50 mg 50 mg, oral, 2 times daily, First dose on Fri04/19/19 at 2100 Given 04/20/2019 8:[address] SIGN INSTALLER 50 mg Given 04/20/2019 8:[address] SIGN INSTALLER [address] capsule 40 mg (PriLOSEC) Given 04/21/2019 6:[address] SIGN INSTALLER 40 mg 40 mg, oral, Daily before breakfast, First dose on Fri04/21/19 at 0700, Postprocedure (CV), Do NOT crush or chew. Capsule may be opened and the contents taken without crushing or chewing. potassium chloride ER tablet 40 mEq Given 04/19/2019 6:[address] SIGN INSTALLER 40 mEq (KLORCON/K-TAB) 40 mEq, oral, Once, [...] 8.6 mg (SENOKOT) Given 04/21/2019 10:[address] SIGN INSTALLER 8.6 mg 8.6 mg, oral, As needed, constipation, Starting on Fri04/19/19 at 0930, Postprocedure (CV) simvastatin tablet 20 mg (ZOCOR) Given 04/20/2019 8:[address] SIGN INSTALLER 20 mg 20 mg, oral, Daily at bedtime, First dose on Fri04/19/19 at 2100, Postprocedure (CV) Given 04/19/2019 8:[address] SIGN INSTALLER 20 mg sodium chloride 0.9 % injection 10 mL 10 mL, intravenous, As needed, line care , Peripheral Intravenous Catheter and Rapid Infusion Catheter, Starting on Fri at 2109, Prior to blood sampling, post blood transfusion or post blood sampling. sodium chloride 0.9 % injection 3 mL Given 04/20/2019 9:[address] SIGN INSTALLER 3 mL 3 mL, intravenous, As needed, line care, Peripheral Intravenous Catheter and Rapid Infusion Catheter, Starting on Fri04/20/19 at 2109, Prior to and following infusion and between multiple consecutive infusions. sodium chloride 0.9 % injection 3 mL Given 04/21/2019 8:[address] SIGN INSTALLER 3 mL 3 mL, intravenous, Every 12 hours scheduled, First dose on Fri04/21/19 at 0900, Peripheral Intravenous Catheter and Rapid Infusion Catheter: When no infusion to maintain patency. SUMAtriptan tablet 50 mg (IMITREX) Given 04/21/2019 4:[address] SIGN INSTALLER 50 mg 50 mg, oral, Every 2 hour PRN, migraine, Starting on Fri04/19/19 at 0930, For 2 doses, Postprocedure (CV), SUMAtriptan oral was interchanged for rizatriptan Given 04/20/2019 11:[address] SIGN INSTALLER 50 mg topiramate tablet 25 mg (TOPAMAX) Given 04/21/2019 8:[address] SIGN INSTALLER 25 mg 25 mg, oral, Daily, First dose on Fri04/20/19 at 0900, Postprocedure (CV) Given 04/20/2019 8:[address] SIGN INSTALLER 25 mg warfarin management (COUMADIN) oral, Daily, First dose (after last modification) on T u04/20/19 at 1700, Pharmacist to Dose: Yes, Target [...] 6 mg (COUMADIN) Given 04/19/2019 6:[address] SIGN INSTALLER 6 mg 6 mg, oral, Once, On Fri04/19/19 at 1700, For 1 dose warfarin tablet 6 mg (COUMADIN) Given 04/20/2019 5:[address] SIGN INSTALLER 6 mg 6 mg, oral, Once, On Fri04/20/19 at 1700, For 1 dose documented in this encounter Active and Recently Administered Medications Times are shown in ROAD SIGN INSTALLER. Scheduled Medication Order 04/19/2019 04/20/2019 04/21/2019 clotrimazole-betamethasone 1-0.05 % cream 1 applicatio n (LOTRISONE) 2011 (Given - Provider: Naren Michaels R.N.) 0849 (Given - Provider: Jhony smith RMary Ann)2019 (Given - Provider: Valerie Jaquez R.N.) 0836 (Given - Provider: Talya Duffy RMary Ann)0945 (MAY Hold - Provider: Transfer Provider, Automatic - Reason: Patient not available)0954 (MAY Unhold - Provider: Transfer Provider, Automatic) 1 application, topical, 2 times daily, F irst dose on Fri04/19/19 at 2100, Postprocedure (CV) DULoxetine DR capsule 30 mg (CYMBALTA) 2011 (Given - P rovider: Naren Michaels R.N.) 0846 (Given - Provider: Jhony smith R.N.)2012 (Given - Provider: Valerie A Jaquez, R.N.) 0838 (Given - Provider: Talya Duffy REdilmaN.)0945 ([facility] Hold - Provider: Transfer Provider, Automatic - Reason: Patient not available)0954 ([facility] Unhold - Provider: Transfer Provider, Automatic) 30 mg, oral, 2 times daily, First dose o n Fri04/19/19 at 2100, Postprocedure (CV), See tube feeding guidelines for tube feeding administration instructions. ferrous sulfate tablet 65 mg of iron 084 5 (Given - Provider: Jhony Diego RMary Ann) 0837 (Given - Provider: Talya tierney R.N.)0945 ([facility] Hold - Provider: Transfer Provider, Automatic - Reason: Patient not available)0954 ([facility] Unhold - Provider: Transfer Provider, Automatic) 65 mg of iron, oral, Daily, First dose o n Fri04/20/19 at 0900, Postprocedure (CV) flecainide tablet 100 mg (TAMBOCOR) 2011 (Given - Prov ider: Naren Michaels REdilmaN.) 0845 (Given - Provider: Jhony smith REdilmaNEdilma)2012 (Given - Provider: Valerie Jaquez RMary Ann) 0838 (Given - Provider: Talya tierney R.N.)0945 ([facility] Hold - Provider: Transfer Provider, Automatic - Reason: Patient not available)0954 ([facility] Unhold - Provider: Transfer Provider, Automatic) 100 mg, oral, 2 times daily, First dose on Fri04/19/19 at 2100 fluticasone furoate 100 mcg/actuation inhaler 1 puff (ARNUIT Y ELLIPTA) 0848 (Given - Provider: Jhony Diego RMary Ann) 0836 (Given - Provider: Talya Duffy REdilmaNEdilma)0945 ([facility] Hold - Provider: Transfer Provider, Automatic - Reason: Patient not available)0954 ([facility] Unhold - Provider: Transfer Provider, Automatic) 1 puff, inhalation, Daily, First dose on Fri04/20/19 at 0900, Postprocedure (CV), Rinse mouth with water after use to reduce aftertaste and incidence of candidiasis. Do not swallow. furosemide injection 20 mg (LASIX) (COMPLETED) 912 (Given - Provider: Jhony Diego R.N.) 20 [...] LEVOTHROID) 0537 (Given - Provider: Naren Michaels REdilmaN.) 0630 (Given - Provider: Candy Deluna RMary Ann)0945 (MAR Hold - Provider: Transfer Provider, Automatic - Reason: Patient not available)0954 ([facility] Unhold - Provider: Transfer Provider, Automatic) 25 mcg, oral, Daily before breakfast, Fi rst dose on Fri04/20/19 at 0700, Postprocedure (CV) magnesium sulfate in water IVPB 2 g (COMPLETED) 180 ( New Bag - Provider: Jhony Diego RMary Ann) 2 g, intravenous, at 25 mL/hr, Administe r over 120 Minutes, Once, On Fri04/19/19 at 1745, For 1 dose, Over 2 hours. premix bag metFORMIN tablet 500 mg (GLUCOPHAGE) 180 (Given - Pro vider: Jhony Diego RManjeet.) 0846 (Given - Provider: Jhony smith R.N.)1720 (Given - Provider: Jhony Diego R.N.) 0838 (Given - Provider: Talya tierney R.N.)0945 (MAR Hold - Provider: Transfer Provider, Automatic - Reason: Patient not available)0954 ([facility] Unhold - Provider: Transfer Provider, Automatic) 500 mg, oral, 2 times daily with meals, First dose on Fri 0 at 1700 metoprolol tartrate tablet 50 mg (LOPRESSOR) 2011 (Giv en - Provider: Naren Michaels R.N.) 0845 (Given - Provider: Jhony smith RMary Ann)2012 (Given - Provider: Valerie Jaquez R.N.) 0837 (Given - Provider: Moise FlorNEdilma)0945 ([facility] Hold - Provider: Transfer Provider, Automatic - Reason: Patient not available)0954 ([facility] Unhold - Provider: Transfer Provider, Automatic) 50 mg, oral, 2 times daily, First dose on Fri04/19/[address] capsule 40 mg (PriLOSEC) 30 (Given - Provider: Candy Deluna RMary Ann)0945 ([facility] Hold - Provider: Transfer Provider, Automatic - Reason: Patient not available)0954 ([facility] Unhold - Provider: Transfer Provider, Automatic) 40 mg, oral, Daily before breakfast, Fir st dose on Fri04/21/19 at 0700, Postprocedure (CV), Do NOT crush or chew. Capsule may be opened and the contents taken without crushing or chewing. potassium chloride ER tablet 40 mEq (KLORCON/K-TAB) (C OMPLETED) 180 (Given - Provider: Jhony Diego R.N.) 40 mEq, oral, Once, On Fri04/19/19 at 16 30, For 1 dose, Give with food Swallow whole. Do NOT crush, chew, or split tablet. simvastatin tablet 20 mg (ZOCOR) 2011 (Given - Provide r: Naren Michaels R.N.) 2012 (Given - Provider: Valerie Jaquez R.N.) 0945 ([facility] Hold - Provider: Transfer Provider, Automatic - Reason: Patient not available)0954 ([facility] Unhold - Provider: Transfer Provider, Automatic) 20 mg, oral, Daily at bedtime, First dos e on Fri04/19/19 at 2100, Postprocedure (CV) sodium chloride 0.9 % injection 3 mL 0838 (Given - Provider: Talya Duffy REdilmaNEdilma)0945 ([facility] Hold - Provider: Transfer Provider, Automatic - Reason: Patient not available)0954 ([facility] Unhold - Provider: Transfer Provider, Automatic) 3 mL, intravenous, Every 12 hours schedu led, First dose on Fri04/21/19 at 0900, Peripheral Intravenous Catheter and Rapid Infusion Catheter: When no infusion to maintain patency. topiramate tablet 25 mg (TOPAMAX) 0846 ( Given - Provider: Jhony Diego R.N.) 0838 (Given - Provider: Talya tierney R.N.)0945 ([facility] Hold - Provider: Transfer Provider, Automatic - Reason: Patient not available)0954 ([facility] Unhold - Provider: Transfer Provider, Automatic) 25 mg, oral, Daily, First dose on Fri04/20/19 at 0900, Postproce dure (CV) warfarin management (COUMADIN) 1700 (Due) 0 945 ([facility] Hold - Provider: Transfer Provider, Automatic - Reason: Patient not available)0954 ([facility] Unhold - Provider: Transfer Provider, Automatic) oral, [...] 1802 (Give n - Provider: Jhony Diego RMary Ann) 6 mg, oral, Once, On Fri04/19/19 at 1700, For 1 dose warfarin tablet 6 mg (COUMADIN) (COMPLETED) 1720 (Given - Provider: Jhony Diego R.N.) 6 mg, oral, Once, On Fri04/20/19 at 1700, For 1 dose PRN Medication Order 04/19/2019 04/20/2019 04/21/2019 acetaminophen tablet 1,000 mg (TYLENOL) 0945 ([facility] Hold - Provider: Transfer Provider, Automatic - Reason: Patient not available)0954 ([facility] Unhold - Provider: Transfer Provider, Automatic)0955 (Given - Provider: Talya Duffy R.N.) 1,000 mg, oral, Every 6 hours PRN, mild pain or score 1-3 of 10, Starting on 04/19/19 at 1502, Postprocedure (CV) albuterol 90 mcg/actuation inhaler 2 puff (PROVENTIL HFA,VENTOLI N HFA) 0945 ([facility] Hold - Provider: Transfer Provider, Automatic - Reason: Patient not available)0953 ([facility] Unhold - Provider: Transfer Provider, Automatic) 2 puff, inhalation, Every 4 hours PRN, s hortness of breath, Starting Fri04/19/19 at 0928, Postprocedure (CV) alum-mag hydroxide-simeth 200-200-20 mg/5 mL suspension 15 mL (M AALOX) 0945 ([facility] Hold - Provider: Transfer Provider, Automatic - Reason: Patient not available)0953 ([facility] Unhold - Provider: Transfer Provider, Automatic) 15 mL, oral, Every 6 hours PRN, indigest ion, Starting 04/19/19 at 0928, Postprocedure (CV) atropine injection 0.5 mg 0945 ( [facility] Hold - Provider: Transfer Provider, Automatic - Reason: Patient not available)0954 ([facility] Unhold - Provider: Transfer Provider, Automatic) 0.5 mg, intravenous, Once as needed, for pulse less than 50 beats per minute, Starting Fri04/19/19 at 1502, For 1 dose, Postprocedure (CV) benzocaine-menthol 15-3.6 mg per lozenge 1 lozenge (CE PACOL) 2202 (Given - Provider: Naren Michaels RManjeet.) 0242 (Given - Provider: Naren mendiola, R.N.)0913 (Given - Provider: Jhony Diego R.N.)1720 (Given - Provider: Jhony Diego R.N.)2114 (Given - Provider: Valerie Jaquez R.N.) 0453 (Given - Provider: Aria Green R.N.)0945 ([facility] Hold - Provider: Transfer Provider, Automatic - Reason: Patient not available)0954 ([facility] Unhold - Provider: Transfer Provider, Automatic)0955 (Given - Provider: Talya Duffy RMary Ann) 1 lozenge, oral, Every 4 hours PRN, sore throat, Starting on Fri04/19/19 at 0934, Postprocedure (CV) carboxymethylcellulose 0.5 % ophthalmic solution 1 drop (REFRESH PLUS) 0945 ([facility] Hold - Provider: Transfer Provider, Automatic - Reason: Patient not available)0954 ([facility] Unhold - Provider: Transfer Provider, Automatic) 1 drop, both eyes, 4 times daily PRN, dr y eyes, Starting Fri04/19/19 at 0931, Postprocedure (CV) diazePAM tablet 2 mg (VALIUM) 09 45 ([facility] Hold - Provider: Transfer Provider, Automatic - Reason: Patient not available)0954 ([facility] Unhold - Provider: Transfer Provider, Automatic) 2 mg, oral, Every 2 hour PRN, anxiety, m uscle spasms, Starting Fri04/19/19 at 1502, For 2 doses, Postprocedure (CV), May repeat once if first dose ineffective. Until sheath removal. docusate sodium capsule 100 mg (COLACE) 0945 ([facility] Hold - Provider: Transfer Provider, Automatic - Reason: Patient not available)0954 ([facility] Unhold - Provider: Transfer Provider, Automatic)1038 (Not Given - Provider: Talya Duffy RManjeet. - Reason: Other) 100 mg, oral, 2 times daily PRN, constip ation, Starting Fri04/19/19 at 0934, Postprocedure (CV), Do NOT crush or chew. docusate sodium capsule 100 mg (COLACE) 0945 ([facility] Hold - Provider: Transfer Provider, Automatic - Reason: Patient not available)0954 ([facility] Unhold - Provider: Transfer Provider, Automatic)1029 (Given - Provider: Talya Duffy RMary Ann) 100 mg, oral, 2 times daily PRN, constip ation, Starting on Fri04/19/19 at 1502, Postprocedure (CV), Do NOT crush or chew. fentaNYL injection 25 mcg (SUBLIMAZE) 0945 ([facility] Hold - Provider: Transfer Provider, Automatic - Reason: Patient not available)0954 ([facility] Unhold - Provider: Transfer Provider, Automatic) 25 mcg, intravenous, Every 2 hour PRN, m oderate pain or score 4-6 of 10, Starting Fri04/19/19 at 1502, Postprocedure (CV), May repeat once in dosing interval, if patient unable to take oral analgesics or oral analgesics are ineffective fentaNYL injection 50 mcg (SUBLIMAZE) 0945 ([facility] Hold - Provider: Transfer Provider, Automatic - Reason: Patient not available)0954 ([facility] Unhold - Provider: Transfer Provider, Automatic) 50 [...] Intraprocedure (CV) melatonin tablet 3 mg 0945 ([facility] Hold - Provider: Transfer Provider, Automatic - Reason: Patient not available)0954 ([facility] Unhold - Provider: Transfer Provider, Automatic) 3 mg, oral, Bedtime PRN, sleep, Starting Fri04/19/19 at 0934, Postprocedure (CV) methyl salicylate-menthol 30-10 % cream 1 application (ICY HOT) 0945 ([facility] Hold - Provider: Transfer Provider, Automatic - Reason: Patient not available)0954 ([facility] Unhold - Provider: Transfer Provider, Automatic) 1 application, topical, Every 2 hour PRN , muscle/joint pain, Starting on Fri04/19/19 at 1628, @@ Generic Substitution for BenGay @@@ midazolam (PF) injection 1 mg (VERSED) 0945 ([facility] Hold - Provider: Transfer Provider, Automatic - Reason: Patient not available)0954 ([facility] Unhold - Provider: Transfer Provider, Automatic) 1 mg, intravenous, Every 2 hour PRN, anx iety, muscle spasms, Starting Fri04/19/19 at 1502, For 2 doses, Postprocedure (CV), for over 2 minutes. May repeat x1 dosing interval. Patient must be NPO for 2 hours prior to giving. Until sheath removal. naloxone injection 0.2 mg (NARCAN) 0945 ([facility] Hold - Provider: Transfer Provider, Automatic - Reason: Patient not available)0954 ([facility] Unhold - Provider: Transfer Provider, Automatic) 0.2 mg, intravenous, As needed, respirat ory depression, Starting Fri04/19/19 at 1502, Postprocedure (CV), For respiratory rate less than 8 breaths per minute or RASS score of -3, -4, -5. Apply oxygen to keep oxygen saturations greater than 90% and notify service. oxyCODONE IR tablet 5 mg (ROXICODONE) 0945 ([facility] Hold - Provider: Transfer Provider, Automatic - Reason: Patient not available)0954 ([facility] Unhold - Provider: Transfer Provider, Automatic) 5 mg, oral, Every 6 hours PRN, moderate pain or score 4-6 of 10, Starting Fri04/19/19 at 1502, Postprocedure (CV), If acetaminophen ineffective and patient able to take oral analgesics polyethylene glycol powder packet 17 g (MIRALAX) 0945 ([facility] Hold - Provider: Transfer Provider, Automatic - Reason: Patient not available)0954 ([facility] Unhold - Provider: Transfer Provider, Automatic) 17 g, oral, As needed, constipation, Sta rting Fri04/19/19 at 0929, For 237 days, Postprocedure (CV), Dissolve in 240 mLs (8 ounces) of water prior to giving. Avoid mixing with starch-based thickened liquids. prochlorperazine injection 5 mg (COMPAZINE) 0945 ([facility] Hold - Provider: Transfer Provider, Automatic - Reason: Patient not available)0954 ([facility] Unhold - Provider: Transfer Provider, Automatic) 5 mg, intravenous, Every 6 hours PRN, na usea, vomiting, Starting on Fri04/19/19 at 1744 promethazine injection 6.25 mg (PHENERGAN) 0945 ([facility] Hold - Provider: Transfer Provider, Automatic - Reason: Patient not available)0954 ([facility] Unhold - Provider: Transfer Provider, Automatic) 6.25 mg, intravenous, Every 6 hours PRN, nausea, vomiting, Starting on Fri04/19/19 at 1744 sennosides tablet 8.6 mg (SENOKOT) 0945 ([facility] Hold - Provider: Transfer Provider, Automatic - Reason: Patient not available)0954 ([facility] Unhold - Provider: Transfer Provider, Automatic)1029 (Given - Provider: Talya Duffy REdilmaNEdilma) 8.6 mg, oral, As needed, constipation, S tarting on Fri04/19/19 at 0930, Postprocedure (CV) sodium chloride 0.9 % injection 10 mL 0945 ([facility] Hold - Provider: Transfer Provider, Automatic - Reason: Patient not available)0954 ([facility] Unhold - Provider: Transfer Provider, Automatic) 10 mL, intravenous, As needed, line care , Peripheral Intravenous Catheter and Rapid Infusion Catheter, Starting on Fri04/20/19 at 2109, Prior to blood sampling, post blood transfusion or post blood sampling. sodium chloride 0.9 % injection 3 mL 211 5 (Given - Provider: Valerie Jaquez RMary Ann) 0945 ([facility] Hold - Provider: Transfer Prov ider, Automatic - Reason: Patient not available)0954 ([facility] Unhold - Provider: Transfer Provider, Automatic) 3 mL, intravenous, As needed, line care, Peripheral Intravenous Catheter and Rapid Infusion Catheter, Starting on Fri04/20/19 at 2109, Prior to and following infusion and between multiple consecutive infusions. SUMAtriptan tablet 50 mg (IMITREX) (COMPLETED) 1129 (Given - Provider: Jhony Diego R.N.) 0444 (Given - Provider: Candy Deluna REdilmaN.) 50 mg, oral, Every 2 hour PRN, migraine, Starting on Fri04/19/19 at 0930, For 2 doses, Postprocedure (CV), SUMAtriptan oral was interchanged for rizatriptan documented in this encounter Additional Health Concerns Assessment Noted Time PHQ-9 Depression Total Score: 11 05/04/2013 4:05 PM CS T documented as of this encounter Care Teams Safety Inspector Relationship Specialty Start Date End Date Elsewhere, Pcp PCP - General Internal Medicine 07/27/18 documented as of this encounter
--- OUTSIDE RECORDS SUMMARY | 2022-01-08 16:39 | XMS_ITS | Encounter Summary ---
:1955 Author Organization [facility] Address [address] [place] [address] Care Team Providers Name Role Phone Elsewhere, Pcp Primary Care Provider Unavailable Reason for Referral Outpatient (Routine) - Closed Specialty Diagnoses / Procedures Referred By Contact Refer red To Contact Diagnoses Atrial Fibrillation [facility] Echo Transesophageal (MICHAEL) M.B.B.S. [address] [place], [place] [phone] Referral ID Status Reason Start Date Expiration Date Visits Requ ested Visits Authorized [id number] Closed 04/19/2019 04/18/2020 1 1 S MARKETING COORDINATOR Reason for Visit Outpatient (Routine) - Closed Specialty Diagnoses / Procedures Referred By Contact Refer red To Contact Diagnoses Atrial Fibrillation Unspecified [facility] Procedures Echo Transesophageal (MICHAEL) M.B.B.S. [address] [place] [address] Referral ID Status Reason Start Date Expiration Date Visits Requ ested Visits Authorized [id number] Closed 04/19/2019 04/18/2020 1 1 Encounter Details Date Type Department Care Team Description 04/19/2019 Hospital Encounter Department of Liseth Yeager ibrillation Cardiovascular Diseases Marla ([facility] ) in [facility] M.B.B.S. [address] [facility] [address] [place] [phone] Social History Tobacco Use Types Packs/Day Years [...] do you attend mormon or Never 2018 church services? Do you [...] Results for this AND LIMITED DOPPLER AM SALES MARKETING COORDINATOR (HCC) procedur e are in the results section. documented in this encounter Results (MICHAEL) 2D WITH COLOR AND LIMITED DOPPLER (04/19/2019 11:49 AM SALES MARKETING COORDINATOR) Anatomical Region Laterality Modality Other Specimen (Source) Anatomical Collection Method Collection Time Re ceived Time Location / / Volume Laterality 04/19/2019 10:15 AM SALES MARKETING COORDINATOR Narrative 04/20/2019 7:51 AM SALES MARKETING COORDINATOR For the complete report, see the Order-L [...] documented as of this encounter Care Teams Packing Room Supervisor Relationship Specialty Start Date End Date Elsewhere, Pcp PCP - General Internal Medicine 07/27/18 documented as of this encounter
--- OUTSIDE RECORDS SUMMARY | 2022-01-08 16:40 | XMS_ITS | Encounter Summary ---
:1955 Author Organization [facility] Address [address] [place] [address] Care Team Providers Name Role Phone Elsewhere, Pcp Primary Care Provider Unavailable Reason for Visit Appointment Request (Routine) - Closed Specialty Diagnoses / Procedures Referred By Contact Refer red To Contact Cardiovascular Disease Porfirio Villegas M.D. [address] [place] [address] Referral ID Status Reason Start Date Expiration Date Visits Requ ested Visits Authorized [id number] Closed 01/25/2019 01/25/2020 1 1 Encounter Details Date Type Department Care Team Description 02/26/2019 Office Visit Department of Newton Villegas Cardiovascular Medicine Porfirio ([facility]) (Primary Dx) in [facility] nasim Kellogg [address] [facility] [address] [place] [address] [place], [place] [phone] Social History Tobacco Use Types Packs/Day Years [...] do you attend confucianist or Never 2018 jew services? Do you belong to any clubs or No 02/26/2019 organizations such as confucianist groups, unions, fraternal or athletic groups, or school groups? How often do you attend meetings of the More than 4 times r year 03/30/2020 clubs or organizations you [...] (218 lb 0.6 oz) 02/26/2019 1:12 PM FOOD CONCESSION MANAGER Height 165.6 cm (5' 5.2) 02/26/2019 1:12 PM FOOD CONCESSION MANAGER Body Mass Index 36.06 02/26/2019 1:12 PM FOOD CONCESSION MANAGER documented in this encounter Progress Notes Porfirio [...] or concerns arise. Reviewed with Dr. Yeager. CONCESSION MANAGER documented in this encounter Plan of Treatment Not on filedocumented as of this encounter Visit Diagnoses Diagnosis Atrial Fibrillation Unspecified - Primar y documented in this encounter Additional Health Concerns Assessment Noted Time PHQ-9 Depression Total Score: 11 05/04/2013 4:05 PM CS T documented as of this encounter Care Teams Mental Health Advanced Practice Nurse Relationship Specialty Start Date End Date Elsewhere, Pcp PCP - General Internal Medicine 07/27/18 documented as of this encounter
--- OUTSIDE RECORDS SUMMARY | 2022-01-08 16:40 | XMS_ITS | Encounter Summary ---
:1955 Author Organization [facility] Address [address] [place] [address] Care Team Providers Name Role Phone Elsewhere, Pcp Primary Care Provider Unavailable Reason for Visit Outpatient (Routine) - Canceled Specialty Diagnoses / Procedures Referred By Contact Refer red To Contact Social Work Diagnoses Thrombus Atrial (HCC) Flutter Atrial (HCC) Porfirio Villegas [facility] [address] [place] [phone] Referral ID Status Reason Start Date Expiration Date Visits V isits Requested Authorized [id number] Canceled 11/25/2018 11/25/2019 1 1 Encounter Details Date Type Department Care Team Description 11/26/2018 Clinical Communication Department of Porfirio Fraga M.D. [address] [place] [phone] No Show Work in [place], Teresa, Andrade Mccall.C.S.W., M.S.WEdilma [address] [place] [phone] [place] [address] [place] [phone] Social History Tobacco Use Types Packs/Day Years [...] do you attend mosque or Never 2018 restorationist services? Do you [...] back number for patient to call office [phone] documented in this encounter Plan of Treatment Not on filedocumented as of this encounter Visit Diagnoses Not on filedocumented in this encounter Additional Health Concerns Assessment Noted Time PHQ-9 Depression Total Score: 11 05/04/2013 4:05 PM CS T documented as of this encounter Care Teams Software Quality Assurance Analyst Relationship Specialty Start Date End Date Elsewhere, Pcp PCP - General Internal Medicine 07/27/18 documented as of this encounter
--- OUTSIDE RECORDS SUMMARY | 2022-01-08 16:40 | XMS_ITS | Encounter Summary ---
:1955 Author Organization [facility] Address [address] [place] [address] Care Team Providers Name Role Phone Elsewhere, Pcp Primary Care Provider Unavailable Encounter Details Date Type Department Care Team Description 04/19/2019 Surgery Division of Cardiovascular Carole Yeager, ABLATION - PVI Diseases in [facility] [address] [facility] [address] [place] [phone] (Wo rk) Social History Tobacco Use Types [...] do you attend mandaen or Never 2018 hoahaoism services? Do you [...] Comments Blood Pressure 147/103 04/19/2019 8:35 AM EVENT LIGHTING SPECIALIST Pulse - - Temperature - - Respiratory Rate 16 04/19/2019 8:35 AM EVENT LIGHTING SPECIALIST Oxygen Saturation 94% 04/19/2019 8:35 AM EVENT LIGHTING SPECIALIST Inhaled Oxygen Concentration - - Weight 98.4 kg (216 lb 14.9 oz) 04/19/2019 8:35 AM EVENT LIGHTING SPECIALIST Height 165.6 cm (5' 5.2) 04/19/2019 8:35 AM EVENT LIGHTING SPECIALIST Body Mass Index 35.85 04/19/2019 8:35 AM EVENT LIGHTING SPECIALIST documented in this encounter Discharge Summaries Tucker Rutherford P.A.-C. - 04/21/2019 10:04 AM CST Images from the original note were not included. DISCHARGE SUMMARY BRIEF OVERVIEW Discharge Provider: Marla Yeager M.B.B.S. Primary Care Providers: Elsewhere, Pcp (General) [address] [place] [id number] Primary Care Provider Phone Number: None Primary Care Provider Fax Number: None Other Providers: Patient Care Team: Elsewhere, Pcp as PCP - General (Internal Medicine) Kandace Mckeon D.O. as External Primary Care Physician (Family Medicine) Oralia Ricks, NO, C.N.P. as Nurse Practitioner (Cardiovascular Diseases) Porfirio [...] Lab Units 04/21/19 0615 04/20/19 0634 04/19/19 1410 04/19/19 1046 WBC x10(9)/L 11.7* 12.0* -- -- [...] HOSPITAL COURSE Iris Metcalf was discharged from [facility] following an ablation performed by [...] will occur in approximately 3 months at [facility] in Heart Rhythm Services. Testing at that time will include a 24 hr Holter monitor, ECG, echocardiogram, and cardiac Ct. Patient was also instructed to follow up with Primary Care locally in the next 7-10 days for post hospital follow up. Discharge instructions were provided to the patient and caregiver(s). Juan J Rutherford P.A.-C. T LIGHTING SPECIALIST documented in this encounter Discharge Instructions Discharge InstructionsHiTucker fish P.A.-C. - 04/21/2019 11:05 AM EVENT LIGHTING SPECIALIST Hospital Problems as of 04/21/2019 1. * [...] 4:00 p.m., contact the Electrophysiology Service at [phone]. For questions occurring after business hours, on weekends, nights, or holidays call [phone] and ask for Electrophysiology Spindraw Operator. General Follow-Up: You should follow up locally with your primary care provider in approximately 2 weeks for post hospitalization follow-up. Take a copy of the dismissal summary from [facility] to your provider. [facility] Follow-Up: A follow-up appointment will be scheduled for you in 3 months in the Heart Rhythm Center or Cardiovascular Exam Room. You will be contacted by [facility] to set up the follow up. Tests will include the following: electrocardiogram, 24-hour Holter monitor, transthoracic echocardiogram, and CT scan of heart. Our appointment coordinators will be contacting you. If you have not been notified about your appointment, please contact the electrophysiology contestant coordinator at . Anticoagulation: Anticoagulation with Coumadin [...] avoid/skip your follow-up appointments, they are important! T LIGHTING SPECIALIST AttachmentsThe following attachments cannot be sent through Care Everywhere. Acetaminophen (By mouth) (American)Flecainide (By mouth) (American)Omeprazole (By mouth) (American)documented in this encounter Medications at Time of [...] and Lissette Breen, PharmJohn., R.Ph. Contact Pager [phone] with any questions about this note. T LIGHTING SPECIALIST Tucker Rutherford P.A.-C. - 04/20/2019 11:26 AM [...] have been answered. Juan J Rutherford P.A.-C. T LIGHTING SPECIALIST Porfirio Villegas M.D. - 04/20/2019 8:20 AM [...] echocardiogram andimaging of the pulmonary veins. Porfirio Siontis, M.D. Clinical Cardiac Electrophysiology Fellow 04/20/2019 8:21 AM EVENT LIGHTING SPECIALIST T LIGHTING SPECIALIST Aria Houser APRN C.N.P., M.S.N. - 04/19/2019 4:23 PM CST [...] swallowing. She remains on bedrest with a Moer catheter in place. She has tolerated sips [...] 2 Without Complication (HCC) 6. Anticoagulant Therapy Irsi Metcalf is a pleasant 64 y.o. female [...] the hospital for monitoring while on flecainide. T LIGHTING SPECIALIST Jayda Whitehead, Pharm.D., R.Ph. - 04/19/2019 4:01 [...] and Jayda Haddad Pharm.D., R.Ph. Contact Pager [phone] with any questions about this note. T LIGHTING SPECIALIST documented in this encounter Procedure Notes Porfirio [...] BLOOD LOSS Estimated Blood Loss: 1-75 ml T LIGHTING SPECIALIST documented in this encounter Consult Notes Flores Romeo R.N. - 04/21/2019 9:05 AM CSTAssociated Order(s): IP CONSULT TO CARE MANAGEMENT Discharge Planning Assessment SUBJECTIVE Referral Data Referral Source: Nurse Referral Name: Valerie Jaquez RMary Ann Referral Reason: Discharge Planning Discharge Planning: Other (Comment)(long-term care facility) Who was present during the interview?: Patient Pretzel Packer Services Used: No Patient Information Primary Caregiver: Other (Comment)(staff at facility) Primary Nurse Name/Number: Bernie Diet/Texture: By mouth Legal Information Legal Decision Maker: Self Advance Directives: Power of Starchmaker for health care, Power of Starchmaker for finance Advance Directives Status: Not Activated Power of Starchmaker for Health Care Agent Name: Ramin Metcalf Power of Starchmaker for Health Agent Contact Info: [phone] Power of Starchmaker for Finance Agent Name: Ramin Metcalf Power of Starchmaker for Finance Agent Contact Info: [phone] Caregiver Information Caregiver Name: [facility] Caregiver Relationship: paid staff Caregiver Caregiver Address: [address] [place] [address] Services Requested Discharge Planning to Facility OBJECTIVE [...] Communication: Can write, Talks, Understands speaking, Understands [employer] Home Environment: [facility] Facility Name: [facility] Anticipated Modifications to the Patient's Home: [...] Residence: Other (Comment) Type of Residence Other: [facility] Care Facility Name: [facility] Support Systems: Children Assistance Recommended after Discharge: 24 hour supervision Home Care Services: No Anticipated Discharge Destination: [facility] Does the patient need discharge transport arranged?: Yes Has discharge transport been arranged?: Yes What day is the transport expected?: 04/21/19 What time is the transport expected?: 1130 Discharge Provided By: [facility]: [phone] ASSESSMENT / PLAN ??Assessment: Met with the patient to discuss her prior level of care and home going needs. I reviewed my role of Fertilizer Loader. Patient reviewed her current hospitalization and appears to have understanding, insightand competence of her needs. Patient reviewed her home environment and support system; reviewing that her primary care services manager - facility staff will be able to provide care to patient post discharge. Patient reports that she feels safe and supported to return [facility]. ?? Patient stated that she has two sons that are her support system. Patient hopes to transition to an assisted living center. Plan: Patient appears to have understanding, insight and competence into patient needs and is appropriately planning for discharge at this time. I recommended the following: none at this time 1. Patient plans to return to [facility] once medically stable for DC 2. Resources given:None 3. CM will continue to follow for any needs that arise. 4. Transportation home will be provided by [facility] [phone]. 5. Reconnections needed [facility]. Patient to return to: Destination - Selection Complete Service Provider Request Status Selected Services Address Phone Number Fax Number [facility] Selected Transitional Care Unit [address] [address] [phone] Contact: Intake Patient has a MA bedhold. Facility prefers patient return by 1300. Transportation to be provided by [facility] at 1130. Please contact Case Management if [...] arise. Signed by: Flores Romeo R.N. 04/21/2019 T LIGHTING SPECIALIST documented in this encounter Nursing Notes Talya Duffy R.N. - 04/21/2019 10:55 AM CST Pt d/c to [facility]. Facility AVS, discharge summary and MAR report printed, discussed andhanded to pt to relay to SNF. Nurse to nurse report done. Education complete. Teach-back acquired. All questions answered. Transport arranged. Escort requested. T LIGHTING SPECIALIST Mary Cortés R.REdilmaTEdilma, L.R.T. - 04/20/2019 12:42 AM CST Patient is a 64 y.o. female admitted on 04/19/2019 Alert Information: Plan of Care: Patient refused PAP therapy tonight. RT will continue to offer assistance. Principal Problem Atrial Fibrillation Paroxysmal (HCC) Oxygen Therapy $Delivery Method: Room air Arterial Line 04/19/19 Right Radial (Active) Placement Date/Time: 04/19/19 (c) 1767 Procedural Pause Completed: Yes Hand Hygiene Performed Prior to Insertion: Yes Site Prep: Chlorhexidine (Preferred) Sterile Barriers Used : Cap;Gloves;Gown;Large drape;Mask (Clinician);Mask (All others in ro... T LIGHTING SPECIALIST Naren Michaels R.N. - 04/19/2019 9:35 PM CST Shift Goals: Clinical Goals for the Shift: pt remain safe Identify possible barriers to meeting goals/advancing plan of care: pt up with assist and walker End of Shift Summary: met T LIGHTING SPECIALIST Naren Peng R.R.T., L.R.T. - 04/19/2019 5:29 PM CST Assist with CPAP T LIGHTING SPECIALIST Robbie Emerson R.N. - 04/19/2019 8:38 AM CST Patient was admitted for ablation/ electrophysiology procedure. Reviewed HPI, preliminary testing and confirmed medications taken this morning. The last dose of Warfarin taken was 04/19/2019. Pain management strategies post-procedure were discussed. All questions were answered. Patient would like family member Ramin updated with procedural updates. The phone number to reach this family member is [phone]. T LIGHTING SPECIALIST documented in this encounter Plan of Treatment Scheduled Referrals Name Type Priority Associated Diagnoses Order [facility] Cardiovascular Disease Outpatient Routine Flutter A trial ([facility]) Expected: - Heart rhythm consult Referral Atrial Fibrillatio n 07/21/2019 (clinic) Paroxysmal ([facility]) (Approximat e), Expires: 04/21/2022 documented as of this encounter Procedures Procedure Name Priority Date/Time Associated Comments Diagnosis ECG Routine 04/21/2019 Results for 10:47 AM EVENT LIGHTING SPECIALIST this procedure are in the results section. PROTHROMBIN TIME (PT), Routine 04/21/2019 6:15 Re sults for P AM EVENT LIGHTING SPECIALIST this procedure are in the results section. CBC WITH DIFFERENTIAL, Routine 04/21/2019 6:15 Re sults for B AM EVENT LIGHTING SPECIALIST this procedure are in the results section. BUN (BLOOD UREA Routine 04/21/2019 6:15 Results f or NITROGEN), S/P AM EVENT LIGHTING SPECIALIST this procedur e are in the results section. POTASSIUM, S/P Routine 04/21/2019 6:15 Results fo r AM EVENT LIGHTING SPECIALIST this procedure are in the results section. MAGNESIUM, S Routine 04/21/2019 6:15 Results for AM EVENT LIGHTING SPECIALIST this procedure are in the results section. CREATININE WITH EGFR, Routine 04/21/2019 6:15 Res ults for S/P AM EVENT LIGHTING SPECIALIST this procedure are in the results section. ECG Routine 04/20/2019 Results for 10:44 PM EVENT LIGHTING SPECIALIST this procedure are in the results section. DX CHEST AP OR PA AND RAD - Timed 04/20/2019 8:18 Res ults for LATERAL 2 VIEWS (for specific AM EVENT LIGHTING SPECIALIST this proced ure dates/times) are in the results section. ECG Routine 04/20/2019 6:42 Results for AM EVENT LIGHTING SPECIALIST this procedure are in the results section. PROTHROMBIN TIME (PT), Routine 04/20/2019 6:34 Re sults for P AM EVENT LIGHTING SPECIALIST this procedure are in the results section. CBC WITH DIFFERENTIAL, Routine 04/20/2019 6:34 Re sults for B AM EVENT LIGHTING SPECIALIST this procedure are in the results section. BUN (BLOOD UREA Routine 04/20/2019 6:34 Results f or NITROGEN), S/P AM EVENT LIGHTING SPECIALIST this procedur e are in the results section. POTASSIUM, S/P Routine 04/20/2019 6:34 Results fo r AM EVENT LIGHTING SPECIALIST this procedure are in the results section. MAGNESIUM, S Routine 04/20/2019 6:34 Results for AM EVENT LIGHTING SPECIALIST this procedure are in the results section. CREATININE WITH EGFR, Routine 04/20/2019 6:34 Res ults for S/P AM EVENT LIGHTING SPECIALIST this procedure are in the results section. GLUCOSE POCT, B Routine 04/19/2019 4:12 Results f or PM EVENT LIGHTING SPECIALIST this procedure are in the results section. POTASSIUM, S/P STAT 04/19/2019 3:42 Results fo r PM EVENT LIGHTING SPECIALIST this procedure are in the results section. MAGNESIUM, S STAT 04/19/2019 3:42 Results for PM EVENT LIGHTING SPECIALIST this procedure are in the results section. PROTHROMBIN TIME (PT), STAT 04/19/2019 2:53 Re sults for P PM EVENT LIGHTING SPECIALIST this procedure are in the results section. ABLATION - ATRIAL Routine 04/19/2019 2:26 Atrial Results for FLUTTER - RIGHT PM EVENT LIGHTING SPECIALIST Fibrillation (HCC) this p rocedure are in the results section. ABLATION - WACA Routine 04/19/2019 2:26 Atrial Results f or PM EVENT LIGHTING SPECIALIST Fibrillation (HCC) this proc edure are in the results section. HEART RHYTHM PROCEDURE Routine 04/19/2019 2:26 Atrial Re sults for PM EVENT LIGHTING SPECIALIST Fibrillation (HCC) this proc edure are in the results section. HEART RHYTHM PROCEDURE Routine 04/19/2019 2:26 Atrial Re sults for PM EVENT LIGHTING SPECIALIST Fibrillation (HCC) this proc edure are in the results section. HEART RHYTHM PROCEDURE Routine 04/19/2019 2:26 Atrial Re sults for PM EVENT LIGHTING SPECIALIST Fibrillation (HCC) this proc edure are in the results section. ABLATION PVI Routine 04/19/2019 2:26 Atrial Results for PM EVENT LIGHTING SPECIALIST Fibrillation (HCC) this proc edure are in the results section. ABG AND LYTES EG6+, Routine 04/19/2019 2:10 Resul ts for POCT, B PM EVENT LIGHTING SPECIALIST this procedure are in the results section. ACT, POCT, B Routine 04/19/2019 2:03 Results for PM EVENT LIGHTING SPECIALIST this procedure are in the results section. GLUCOSE POCT, B Routine 04/19/2019 2:02 Results f or PM EVENT LIGHTING SPECIALIST this procedure are in the results section. ACT, POCT, B Routine 04/19/2019 1:19 Results for PM EVENT LIGHTING SPECIALIST this procedure are in the results section. ABG AND LYTES EG6+, Routine 04/19/2019 Results for POCT, B 12:58 PM EVENT LIGHTING SPECIALIST this procedure are in the results section. ACT, POCT, B Routine 04/19/2019 Results for 12:48 PM EVENT LIGHTING SPECIALIST this procedure are in the results section. GLUCOSE POCT, B Routine 04/19/2019 Results for 12:47 PM EVENT LIGHTING SPECIALIST this procedure are in the results section. ACT, POCT, B Routine 04/19/2019 Results for 12:19 PM EVENT LIGHTING SPECIALIST this procedure are in the results section. PROTHROMBIN TIME (PT), STAT 04/19/2019 Resul ts for P 12:16 PM EVENT LIGHTING SPECIALIST this procedure are in the results section. ACT, POCT, B Routine 04/19/2019 Results for 11:55 AM EVENT LIGHTING SPECIALIST this procedure are in the results section. ACT, POCT, B Routine 04/19/2019 Results for 11:27 AM EVENT LIGHTING SPECIALIST this procedure are in the results section. ACT, POCT, B Routine 04/19/2019 Results for 11:05 AM EVENT LIGHTING SPECIALIST this procedure are in the results section. PROTHROMBIN TIME (PT), STAT 04/19/2019 Resul ts for P 10:46 AM EVENT LIGHTING SPECIALIST this procedure are in the results section. CBC WITH DIFFERENTIAL, STAT 04/19/2019 Resul ts for B 10:46 AM EVENT LIGHTING SPECIALIST this procedure are in the results section. BASIC METABOLIC PANEL, STAT 04/19/2019 Resul ts for S/P 10:46 AM EVENT LIGHTING SPECIALIST this procedure are in the results section. TYPE AND SCREEN STAT 04/19/2019 Results for 10:45 AM EVENT LIGHTING SPECIALIST this procedure are in the results section. GLUCOSE POCT, B Routine 04/19/2019 Results for 10:44 AM EVENT LIGHTING SPECIALIST this procedure are in the results section. ACT, POCT, B Routine 04/19/2019 Results for 10:41 AM EVENT LIGHTING SPECIALIST this procedure are in the results section. ECHO - INTRAPROCEDURAL Routine 04/19/2019 8:52 Re sults for IMAGES ONLY AM EVENT LIGHTING SPECIALIST this procedure are in the results section. INR, POCT, B Routine 04/19/2019 8:37 Results for AM EVENT LIGHTING SPECIALIST this procedure are in the results section. GLUCOSE POCT, B Routine 04/19/2019 8:37 Results f or AM EVENT LIGHTING SPECIALIST this procedure are in the results section. [...] CDT For the complete report, see the Order-Findline Documents. Final Impressions 1. Echocardiogram performed per [...] 08/19/2019 For the complete report, see the [employer] Documents. Final Impressions 1. Echocardiogram performed per [...] ECHO PROCEDURES HOLTER MONITOR - IN CLINIC MANAGER CORPORATE RESPONSIBILITY (08/18/2019 10:48 AM CDT) [facility] gist Method Time Signature SVE Max Per [id number] HOLTER Hour Time SENTINEL SVE Max Per 2 count HOLTER Hour SENTINEL VE Total Beats 1 count HOLTER SENTINEL VE Percent 0 percent HOLTER Beats SENTINEL Mean Heart 66 bpm HOLTER Rate SENTINEL VT Runs 0 count HOLTER SENTINEL SVE Total 5 count HOLTER Beats SENTINEL Max Heart Rate 83 bpm HOLTER SENTINEL AF Count 0 count HOLTER SENTINEL Min Heart Rate [id number] HOLTER Time SENTINEL Recording Date [id number] HOLTER SENTINEL Tachycardia 0 count HOLTER Runs SENTINEL Holter Pauses 0 count HOLTER SENTINEL SVT Runs 0 count HOLTER SENTINEL Bradycardia 0 count HOLTER Runs SENTINEL Analysis Date 20,200,529 HOLTER SENTINEL Min Heart Rate 54 bpm HOLTER SENTINEL VE Max Per [id number] HOLTER Hour Time SENTINEL SVE Percent 0 percent HOLTER Beats SENTINEL VE Max Per 1 count HOLTER Hour SENTINEL Max Heart Rate [id number] HOLTER Time SENTINEL Specimen (Source) Anatomical Collection Method Collection Time Re ceived Time Location / / Volume Laterality 08/18/2019 10:49 AM CDT Narrative This result has an attachment that is no t available. Tucker Rutherford P.A.-C. CV CARDIAC SERVICES PROCEDUR ES Performing Organization Address [facility] Phon e Number HOLTER SENTINEL HOLTER SENTINEL NA ECG 12 Lead (08/18/2019 10:23 AM CDT) [facility] gist Method Time Signature Ventricular 66 BPM MUSE Rate ECG/Min [place] Interval 202 ms MUSE QRSD Interval 118 ms MUSE QT Interval 480 ms MUSE QTC Interval 503 ms MUSE P [place] 73 degrees MUSE R [place] 94 degrees MUSE T Wave [place] 47 degrees MUSE CODED DIAGNOSIS MUSE Semi-Urgent [...] Rutherford P.A.-C. ECG ORDERABLES Performing Organization Address [facility] Code Phon e Number MUSE MUSE NA [...] thoracic spine. Cholecystectomy clips se en on baton twirler images. GUIDELINES FOR FOLLOW-UP of newly detect [...] thoracic spine. Cholecystectomy clips se en on baton twirler images. GUIDELINES FOR FOLLOW-UP of newly detect [...] PROCEDURES ECG 12 Lead (04/21/2019 10:47 AM EVENT LIGHTING SPECIALIST) P athologist Signature Ventricular Rate 73 BPM MUSE ECG/Min [place] Interval 204 ms MUSE QRSD Interval 110 ms MUSE QT Interval 414 ms MUSE QTC Interval 456 ms MUSE P [place] 69 degrees MUSE R [place] 104 degrees MUSE T Wave [place] 27 degrees MUSE Specimen Anatomical Collection Method Collection Time Receive d Time (Source) Location / / Volume Laterality 04/21/2019 10:47 04/21/2019 AM EVENT LIGHTING SPECIALIST 10:55 AM EVENT LIGHTING SPECIALIST Impressions MUSE - 04/21/2019 10:55 AM EVENT LIGHTING SPECIALIST Normal sinus rhythm with 1st degree A-V [...] MUSE MUSE NA Magnesium (04/21/2019 6:15 AM EVENT LIGHTING SPECIALIST) P athologist Signature Magnesium, S 2.0 1.7 - 2.3 04/21/2019 DTL mg/dL 7:39 AM EVENT LIGHTING SPECIALIST Specimen Anatomical Collection Method Collection Time Receive d Time (Source) Location / / Volume Laterality Blood (Blood, 04/21/2019 6:15 AM 04/21/19 20 6:39 Venous) EVENT LIGHTING SPECIALIST AM EVENT LIGHTING SPECIALIST Tucker Rutherford P.A.-C. LAB BLOOD ADD-ON Performing Organization Address City/State/ZIP Code Phon e Number [facility] [address] [place], [place] [address] [facility] [address] [facility] [address] [facility] (ABNORMAL) Prothrombin Time (PT) (04/21/2019 6:15 AM EVENT LIGHTING SPECIALIST) Patholo gist Method Time Signature Prothrombin 28.6 (H) 9.4 - 12.5 04/21/2019 DTL Time, P sec 6:54 AM EVENT LIGHTING SPECIALIST INR 2.6 0.9 - 1.1 04/21/2019 DTL 6:54 AM EVENT LIGHTING SPECIALIST Comment: ----ADDITIONAL INFORMATION---- Standard intensity warfarin therapeutic range: 2.0 to 3.0 ?? High intensity warfarin therapeutic rang e: 2.5 to 3.5 Specimen Anatomical Collection Method Collection Time Receive d Time (Source) Location / / Volume Laterality Blood (Blood, 04/21/2019 6:15 AM 04/21/19 20 6:39 Venous) EVENT LIGHTING SPECIALIST AM EVENT LIGHTING SPECIALIST Aria Houser APRN, C.N.P., M.S.N. LAB BLOOD ADD-ON Performing Organization Address City/State/ZIP Code Phon e Number [facility] - [address] [place], [place] [address] [facility] [address] [facility] [address] (ABNORMAL) CBC with Differential, Blood (04/21/2019 6:15 AM EVENT LIGHTING SPECIALIST) [facility] Method Time Signature Hemoglobin 12.1 11.6 - 04/21/2019 DTL 15.0 g/dL 6:45 AM EVENT LIGHTING SPECIALIST Hematocrit 38.0 35.5 - 04/21/2019 DTL 44.9 % 6:45 AM EVENT LIGHTING SPECIALIST Erythrocytes 4.03 3.92 - 04/21/2019 DTL 5.13 6:45 AM EVENT LIGHTING SPECIALIST x10(12)/L MCV 94.3 78.2 - 04/21/2019 DTL 97.9 fL 6:45 AM EVENT LIGHTING SPECIALIST RBC Distrib Width 12.3 12.2 - 04/21/2019 DTL 16.1 % 6:45 AM EVENT LIGHTING SPECIALIST Platelet Count 296 157 - 371 04/21/2019 DTL x10(9)/L 6:45 AM EVENT LIGHTING SPECIALIST Leukocytes 11.7 (H) 3.4 - 9.6 04/21/2019 DTL x10(9)/L 6:45 AM EVENT LIGHTING SPECIALIST Neutrophils 8.57 (H) 1.56 - 04/21/2019 DTL 6.45 6:45 AM EVENT LIGHTING SPECIALIST x10(9)/L Lymphocytes 2.03 0.95 - 04/21/2019 DTL 3.07 6:45 AM EVENT LIGHTING SPECIALIST x10(9)/L Monocytes 0.91 (H) 0.26 - 04/21/2019 DTL 0.81 6:45 AM EVENT LIGHTING SPECIALIST x10(9)/L Eosinophils 0.14 0.03 - 04/21/2019 DTL 0.48 6:45 AM EVENT LIGHTING SPECIALIST x10(9)/L Basophils 0.08 0.01 - 04/21/2019 DTL 0.08 6:45 AM EVENT LIGHTING SPECIALIST x10(9)/L Specimen Anatomical Collection Method Collection Time Receive d Time (Source) Location / / Volume Laterality Blood (Blood, 04/21/2019 6:15 AM 04/21/19 20 6:40 Venous) EVENT LIGHTING SPECIALIST AM EVENT LIGHTING SPECIALIST Marla RendonSEdilma LAB BLOOD ADD-ON Performing Organization Address City/State/ZIP Code Phon e Number [facility] - [address] [place], [place] [address] [place] [address] [address] Creatinine with Estimated GFR (04/21/2019 6:15 AM EVENT LIGHTING SPECIALIST) athologist Signature Creatinine 0.85 0.59 - 04/21/2019 DTL 1.04 mg/dL 7:39 AM EVENT LIGHTING SPECIALIST eGFR-Non 74 >=60 04/21/2019 DTL Black/ mL/min/BSA 7:39 AM EVENT LIGHTING SPECIALIST Georgian Comment: ----ADDITIONAL INFORMATION---- Estimated GFR calculated using the 2009 CKD_EPI creatinine equation. eGFR-Black/ 85 >=60 mL/min/BSA 2019 7:39 AM EVENT LIGHTING SPECIALIST DTL Comment: ----ADDITIONAL INFORMATION---- Estimated GFR calculated using the 2009 CKD_EPI creatinine equation. Specimen Anatomical Collection Method Collection Time Receive d Time (Source) Location / / Volume Laterality Blood (Blood, 04/21/2019 6:15 AM 04/21/19 20 6:39 Venous) EVENT LIGHTING SPECIALIST AM EVENT LIGHTING SPECIALIST Marla RendonSEdilma LAB BLOOD ADD-ON Performing Organization Address City/State/ZIP Code Phon e Number [facility] - [address] [place], [place] [address] [place] [address] [address] BUN (Blood Urea Nitrogen) (04/21/2019 6:15 AM EVENT LIGHTING SPECIALIST) athologist Signature BUN (Blood Urea 13 6 - 21 04/21/2019 DTL Nitrogen), S mg/dL 7:39 AM EVENT LIGHTING SPECIALIST Specimen Anatomical Collection Method Collection Time Receive d Time (Source) Location / / Volume Laterality Blood (Blood, 04/21/2019 6:15 AM 04/21/19 20 6:39 Venous) EVENT LIGHTING SPECIALIST AM EVENT LIGHTING SPECIALIST Marla RendonSEdilma LAB BLOOD ADD-ON Performing Organization Address City/State/ZIP Code Phon e Number [facility] - [address] [address] [facility] 200 [facility] Potassium (04/21/2019 6:15 AM EVENT LIGHTING SPECIALIST) athologist Signature Potassium, S 5.0 3.6 - 5.2 04/21/2019 DT mmol/L 7:39 AM EVENT LIGHTING SPECIALIST Specimen Anatomical Collection Method Collection Time Receive d Time (Source) Location / / Volume Laterality Blood (Blood, 04/21/2019 6:15 AM 04/21/19 20 6:39 Venous) EVENT LIGHTING SPECIALIST AM EVENT LIGHTING SPECIALIST Malra Pham LAB BLOOD ADD-ON Performing Organization Address City/State/ZIP Code Phon e Number [facility] - [id number] [place] [address] ECG 12 Lead (04/20/2019 10:44 PM EVENT LIGHTING SPECIALIST) athologist Signature Ventricular Rate 82 BPM MUSE ECG/Min [place] Interval 198 ms MUSE QRSD Interval 106 ms MUSE QT Interval 374 ms MUSE QTC Interval 436 ms MUSE P [place] 67 degrees MUSE R [place] 89 degrees MUSE T Wave [place] -4 degrees MUSE Specimen Anatomical Collection Method Collection Time Receive d Time (Source) Location / / Volume Laterality 04/20/2019 10:44 04/21/2019 5:08 PM EVENT LIGHTING SPECIALIST AM EVENT LIGHTING SPECIALIST Impressions MUSE - 04/21/2019 5:08 AM EVENT LIGHTING SPECIALIST Normal sinus rhythm ST and T wave [...] and Lateral 2 Views (04/20/2019 8:18 AM EVENT LIGHTING SPECIALIST) Anatomical Region Laterality Modality Chest, Thoracic RST LOS, Thoracic ARZ LOS, Thoracic N/A Digital Radiography FLA LOS Specimen (Source) Anatomical Collection Method Collection Time Re ceived Time Location / / Volume Laterality 04/20/2019 8:19 AM EVENT LIGHTING SPECIALIST Impressions 04/20/2019 8:37 AM EVENT LIGHTING SPECIALIST Since 06/29/2018, decreased lung volumes. No focal consolidation, or pneumothorax. Possible tiny left pleu ral effusion with associated atelectasis. Mild pulmonary vascular con gestion. New cardiomegaly. Aortic calcification. Surgical clips right uppe r quadrant. Narrative 04/20/2019 8:37 AM EVENT LIGHTING SPECIALIST EXAM: ??DX CHEST AP OR PA AND [...] quadrant. Marla Pham IMG DIAGNOSTIC IMAGING PROCE [facility] ECG 12 Lead (04/20/2019 6:42 AM EVENT LIGHTING SPECIALIST) [facility] Method Time Signature Ventricular 75 BPM MUSE Rate ECG/Min [place] Interval 186 ms MUSE QRSD Interval 102 ms MUSE QT Interval 388 ms MUSE QTC Interval 433 ms MUSE P [place] 72 degrees MUSE R [place] 97 degrees MUSE T Wave [place] -127 degrees MUSE CODED Atrial MUSE DIAGNOSIS fibrillation Specimen Anatomical Collection Method Collection Time Receive d Time (Source) Location / / Volume Laterality 04/20/2019 6:42 AM 0 8:54 EVENT LIGHTING SPECIALIST AM EVENT LIGHTING SPECIALIST Impressions MUSE - 04/20/2019 8:54 AM EVENT LIGHTING SPECIALIST Normal sinus rhythm Rightward axis ST and [...] Marla Pham ECG ORDERABLES Performing Organization Address City/[facility]/ZIP Code Phon e Number MUSE MUSE NA (ABNORMAL) Prothrombin Time (PT) (04/20/2019 6:34 AM EVENT LIGHTING SPECIALIST) [facility] DripDrop Method Time Signature Prothrombin 23.1 (H) 9.4 - 12.5 04/20/2019 DTL Time, P sec 7:26 AM EVENT LIGHTING SPECIALIST INR 2.1 0.9 - 1.1 04/20/2019 DTL 7:26 AM EVENT LIGHTING SPECIALIST Comment: ----ADDITIONAL INFORMATION---- Standard intensity warfarin therapeutic range: 2.0 to 3.0 ?? High intensity warfarin therapeutic rang e: 2.5 to 3.5 Specimen Anatomical Collection Method Collection Time Receive d Time (Source) Location / / Volume Laterality Blood (Blood, 04/20/2019 6:34 AM 04/20/19 20 7:04 Venous) EVENT LIGHTING SPECIALIST AM EVENT LIGHTING SPECIALIST Aria Houser APRN C.NEdilmaP., M.S.N. LAB BLOOD ADD-ON Performing Organization Address City/State/ZIP Code Phon e Number [facility] - [address] [place] [address] [facility] [address] [facility] (ABNORMAL) CBC with Differential, Blood (04/20/2019 6:34 AM EVENT LIGHTING SPECIALIST) [facility] DripDrop Method Time Signature Hemoglobin 12.7 11.6 - 04/20/2019 DTL 15.0 g/dL 7:17 AM EVENT LIGHTING SPECIALIST Hematocrit 39.4 35.5 - 04/20/2019 DTL 44.9 % 7:17 AM EVENT LIGHTING SPECIALIST Erythrocytes 4.14 3.92 - 04/20/2019 DTL 5.13 7:17 AM EVENT LIGHTING SPECIALIST x10(12)/L MCV 95.2 78.2 - 04/20/2019 DTL 97.9 fL 7:17 AM EVENT LIGHTING SPECIALIST RBC Distrib Width 12.4 12.2 - 04/20/2019 DTL 16.1 % 7:17 AM EVENT LIGHTING SPECIALIST Platelet Count 362 157 - 371 04/20/2019 DTL x10(9)/L 7:17 AM EVENT LIGHTING SPECIALIST Leukocytes 12.0 (H) 3.4 - 9.6 04/20/2019 DTL x10(9)/L 7:17 AM EVENT LIGHTING SPECIALIST Neutrophils 8.06 (H) 1.56 - 04/20/2019 DTL 6.45 7:17 AM EVENT LIGHTING SPECIALIST x10(9)/L Lymphocytes 2.74 0.95 - 04/20/2019 DTL 3.07 7:17 AM EVENT LIGHTING SPECIALIST x10(9)/L Monocytes 0.93 (H) 0.26 - 04/20/2019 DTL 0.81 7:17 AM EVENT LIGHTING SPECIALIST x10(9)/L Eosinophils 0.17 0.03 - 04/20/2019 DTL 0.48 7:17 AM EVENT LIGHTING SPECIALIST x10(9)/L Basophils 0.10 (H) 0.01 - 04/20/2019 DTL 0.08 7:17 AM EVENT LIGHTING SPECIALIST x10(9)/L Specimen Anatomical Collection Method Collection Time Receive d Time (Source) Location / / Volume Laterality Blood (Blood, 04/20/2019 6:34 AM 04/20/19 20 7:04 Venous) EVENT LIGHTING SPECIALIST AM EVENT LIGHTING SPECIALIST Marla Pham LAB BLOOD ADD-ON Performing Organization Address City/State/ZIP Code Phon e Number [facility] - [address] [place], [place] [address] [facility] [address] [facility] 200 [facility] Creatinine with Estimated GFR (04/20/2019 6:34 AM EVENT LIGHTING SPECIALIST) P athologist Signature Creatinine 0.89 0.59 - 04/20/2019 DTL 1.04 mg/dL 8:15 AM EVENT LIGHTING SPECIALIST eGFR-Non 70 >=60 04/20/2019 DTL Black/ mL/min/BSA 8:15 AM EVENT LIGHTING SPECIALIST Georgian Comment: ----ADDITIONAL INFORMATION---- Estimated GFR calculated using the 2009 CKD_EPI creatinine equation. eGFR-Black/ 80 >=60 mL/min/BSA 2019 8:15 AM EVENT LIGHTING SPECIALIST DTL Comment: ----ADDITIONAL INFORMATION---- Estimated GFR calculated using the 2009 CKD_EPI creatinine equation. Specimen Anatomical Collection Method Collection Time Receive d Time (Source) Location / / Volume Laterality Blood (Blood, 04/20/2019 6:34 AM 04/20/19 20 7:04 Venous) EVENT LIGHTING SPECIALIST AM EVENT LIGHTING SPECIALIST Marla RendonSEdilma LAB BLOOD ADD-ON Performing Organization Address City/State/ZIP Code Phon e Number [facility] - [address] [place], [place] [address] [facility] [place] [id number] [place] [address] BUN (Blood Urea Nitrogen) (04/20/2019 6:34 AM EVENT LIGHTING SPECIALIST) P athologist Signature BUN (Blood Urea 13 6 - 21 04/20/2019 DTL Nitrogen), S mg/dL 8:15 AM EVENT LIGHTING SPECIALIST Specimen Anatomical Collection Method Collection Time Receive d Time (Source) Location / / Volume Laterality Blood (Blood, 04/20/2019 6:34 AM 04/20/19 20 7:04 Venous) EVENT LIGHTING SPECIALIST AM EVENT LIGHTING SPECIALIST Marla RendonSEdilma LAB BLOOD ADD-ON Performing Organization Address City/State/ZIP Code Phon e Number [facility] - [address] [place], [place] [address] [facility] [place], [place] [id number] [place] [address] Potassium (04/20/2019 6:34 AM EVENT LIGHTING SPECIALIST) athologist Signature Potassium, S 4.7 3.6 - 5.2 04/20/2019 DTL mmol/L 8:15 AM EVENT LIGHTING SPECIALIST Specimen Anatomical Collection Method Collection Time Receive d Time (Source) Location / / Volume Laterality Blood (Blood, 04/20/2019 6:34 AM 04/20/19 20 7:04 Venous) EVENT LIGHTING SPECIALIST AM EVENT LIGHTING SPECIALIST Marla RendonSEdilma LAB BLOOD ADD-ON Performing Organization Address City/State/ZIP Code Phon e Number [facility] - [address] [place], [place] [address] [facility] [address] [facility] [address] Magnesium (04/20/2019 6:34 AM EVENT LIGHTING SPECIALIST) P athologist Signature Magnesium, S 2.1 1.7 - 2.3 04/20/2019 DTL mg/dL 8:15 AM EVENT LIGHTING SPECIALIST Specimen Anatomical Collection Method Collection Time Receive d Time (Source) Location / / Volume Laterality Blood (Blood, 04/20/2019 6:34 AM 04/20/19 20 7:04 Venous) EVENT LIGHTING SPECIALIST AM EVENT LIGHTING SPECIALIST Marla Pham LAB BLOOD ADD-ON Performing Organization Address City/[facility] Phon e Number [facility] - [address] (ABNORMAL) Glucose, POCT (04/19/2019 4:12 PM EVENT LIGHTING SPECIALIST) Analysis Performed At Patho logist Time Signature Glucose, POCT, 230 (H) 70 - 140 04/19/2019 PCLX B mg/dL 4:19 PM EVENT LIGHTING SPECIALIST Last Intake 3-4 hours 04/19/2019 PCLX 4:19 PM EVENT LIGHTING SPECIALIST Specimen Anatomical Collection Method Collection Time Receive d Time (Source) Location / / Volume Laterality Blood 04/19/2019 4:12 PM 0 4:19 EVENT LIGHTING SPECIALIST PM EVENT LIGHTING SPECIALIST Unknown Provider LAB POCT ORDERABLES-MANUAL Performing Organization Address City/[facility] Phon e Number [facility] [address] [place] [address] [place] [address] [facility] [address] (ABNORMAL) Magnesium (04/19/2019 3:42 PM EVENT LIGHTING SPECIALIST) P athologist Signature Magnesium, S 1.5 (L) 1.7 - 2.3 04/19/2019 DTL mg/dL 5:03 PM EVENT LIGHTING SPECIALIST Specimen Anatomical Collection Method Collection Time Receive d Time (Source) Location / / Volume Laterality Blood (Blood, 04/19/2019 3:42 PM 04/19/19 20 4:28 Venous) EVENT LIGHTING SPECIALIST PM EVENT LIGHTING SPECIALIST Ana Soto APRN.NEdilmaP., M.S.N. LAB BLOOD ADD-ON Performing Organization Address City/State/ZIP Code Phon e Number [facility] - [address] [place], [place] [address] [place] [id number] [facility] [address] Potassium (04/19/2019 3:42 PM EVENT LIGHTING SPECIALIST) P athologist Signature Potassium, P 3.8 3.6 - 5.2 04/19/2019 STMA mmol/L 4:01 PM EVENT LIGHTING SPECIALIST Specimen Anatomical Collection Method Collection Time Receive d Time (Source) Location / / Volume Laterality Blood (Blood, 04/19/2019 3:42 PM 04/19/19 20 3:49 Venous) EVENT LIGHTING SPECIALIST PM EVENT LIGHTING SPECIALIST Aria Houser APRN, C.N.P., M.S.N. LAB BLOOD ADD-ON Performing Organization Address [facility] Phon e Number [facility] - [address] [address] [address] (ABNORMAL) Prothrombin Time (PT) (04/19/2019 2:53 PM EVENT LIGHTING SPECIALIST) Patholo gist Method Time Signature Prothrombin 29.8 (H) 9.4 - 12.5 04/19/2019 STMA Time, P sec 3:14 PM EVENT LIGHTING SPECIALIST INR 2.7 0.9 - 1.1 04/19/2019 STMA 3:14 PM EVENT LIGHTING SPECIALIST Comment: ----ADDITIONAL INFORMATION---- Standard intensity warfarin therapeutic range: 2.0 to 3.0 ?? High intensity warfarin therapeutic rang e: 2.5 to 3.5 Specimen Anatomical Collection Method Collection Time Receive d Time (Source) Location / / Volume Laterality Blood (Blood, 04/19/2019 2:53 PM 04/19/19 20 3:02 Venous) EVENT LIGHTING SPECIALIST PM EVENT LIGHTING SPECIALIST Tucker Rutherford P.A.-C. LAB BLOOD ADD-ON Performing Organization Address City/[facility] Phon e Number [facility] - [address] [place], [place] [address] [place] [address] [facility] ABLATION PVI, CARTO, ULTRASOUND GUIDANCE FOR VASCULAR ACCESS, INTRACARDIAC ECHOCARDIOGRAM, ABLATION - WACA, ABLATION - ATRIAL FLUTTER - RIGHT (04/19/2019 2:26 PM EVENT LIGHTING SPECIALIST) Anatomical Region Laterality Modality X-Ray Angiography Specimen (Source) Anatomical Collection Method Collection Time Re ceived Time Location / / Volume Laterality 04/19/2019 10:13 AM EVENT LIGHTING SPECIALIST Narrative 04/20/2019 2:47 PM EVENT LIGHTING SPECIALIST For the complete report, see the Order-L evP21 Documents. PROCEDURE TYPES 1. ??ABLATION - PVI [...] 28.37 For the complete report, see the Intellinote-L GeoTrac Documents. Procedure Note Marla Yeager M.B.B.SEdilma - 04/20/2019F ormatting of this note might be different from the original. For the complete report, see the Order-L evP21 Documents. PROCEDURE TYPES 1. ABLATION - PVI [...] ABG and Vondates, POCT (04/19/2019 2:10 PM EVENT LIGHTING SPECIALIST) P athologist Signature [facility] 04/19/2019 PCLX POCT 2:16 PM EVENT LIGHTING SPECIALIST Comment: ----ADDITIONAL INFORMATION---- Performed at the Point of Care pH, POCT 7.42 7.35 - 7.45 04/19/2019 2:16 PM EVENT LIGHTING SPECIALIST PCLX Comment: ----ADDITIONAL INFORMATION---- Performed at the Point of Care pCO2, POCT 44 32 - 45 mm Hg 04/19/2019 2:16 PM EVENT LIGHTING SPECIALIST PC LX Comment: ----ADDITIONAL INFORMATION---- Performed at the Point of Care pO2, POCT 455 (H) 83 - 108 mm Hg 04/19/2019 2:16 PM EVENT LIGHTING SPECIALIST PC LX Comment: ----ADDITIONAL INFORMATION---- Performed at the Point of Care Base, POCT 4 (H) -2 - 3 mmol/L 04/19/2019 2:16 PM EVENT LIGHTING SPECIALIST PC LX Comment: ----ADDITIONAL INFORMATION---- Performed at the Point of Care HCO3, POCT 29 (H) 22 - 26 mmol/L 04/19/2019 2:16 PM EVENT LIGHTING SPECIALIST P CLX Comment: ----ADDITIONAL INFORMATION---- Performed at the Point of Care Sodium, POCT, B 137 135 - 145 mmol/L 04/19/2019 2:16 P M EVENT LIGHTING SPECIALIST PCLX Comment: ----ADDITIONAL INFORMATION---- Performed at the Point of Care Potassium, POCT, B 3.0 (L) 3.6 - 5.2 mmol/L 04/19/2019 2:1 6 PM EVENT LIGHTING SPECIALIST PCLX Comment: ----ADDITIONAL INFORMATION---- Performed at the Point of Care Hematocrit, POCT, B 36.0 35.5 - 44.9 % 04/19/2019 2:16 PM EVENT LIGHTING SPECIALIST PCLX Comment: ----ADDITIONAL INFORMATION---- Performed at the Point of Care Specimen Anatomical Collection Method Collection Time Receive d Time (Source) Location / / Volume Laterality Blood 04/19/2019 2:10 PM 0 2:16 EVENT LIGHTING SPECIALIST PM EVENT LIGHTING SPECIALIST Unknown Provider LAB POCT ORDERABLES - DEVICE Performing Organization Address [facility] Phon e Number [facility] [address] [place] [address] [place] [address] [facility] [address] (ABNORMAL) ACT (Activated Clotting Time), POCT (04/19/2019 2:03 PM EVENT LIGHTING SPECIALIST) athologist Signature Activated 167 (H) 84 - 139 04/19/2019 PCSM Clotting Time, sec 2:16 PM EVENT LIGHTING SPECIALIST POCT Specimen Anatomical Collection Method Collection Time Receive d Time (Source) Location / / Volume Laterality Blood 04/19/2019 2:03 PM 0 2:16 EVENT LIGHTING SPECIALIST PM EVENT LIGHTING SPECIALIST Unknown Provider LAB POCT ORDERABLES - DEVICE Performing Organization Address [facility] Phon e Number [facility]OC [facility] [address] [place], [place] [address] [place] [address] [facility] [address] (ABNORMAL) Glucose, POCT (04/19/2019 2:02 PM EVENT LIGHTING SPECIALIST) athologist Signature Glucose, POCT, 193 (H) 70 - 140 04/19/2019 PCLX B mg/dL 2:04 PM EVENT LIGHTING SPECIALIST Specimen Anatomical Collection Method Collection Time Receive d Time (Source) Location / / Volume Laterality Blood 04/19/2019 2:02 PM 0 2:04 EVENT LIGHTING SPECIALIST PM EVENT LIGHTING SPECIALIST Unknown Provider LAB POCT ORDERABLES-MANUAL Performing Organization Address City/[facility] Phon e Number [facility] [address] [place] [address] [place] [address] [facility] [address] (ABNORMAL) ACT (Activated Clotting Time), POCT (04/19/2019 1:19 PM EVENT LIGHTING SPECIALIST) athologist [facility] Activated 300 (H) 84 - 139 04/19/2019 PCSM Clotting Time, sec 1:30 PM EVENT LIGHTING SPECIALIST POCT Specimen Anatomical Collection Method Collection Time Receive d Time (Source) Location / / Volume Laterality Blood 04/19/2019 1:19 PM 0 1:30 EVENT LIGHTING SPECIALIST PM EVENT LIGHTING SPECIALIST Unknown Provider LAB POCT ORDERABLES - DEVICE Performing Organization Address [facility] Phon e Number [facility] [address] [place], [place] [address] [place] [address] [facility] [address] [place] [address] (ABNORMAL) ABG and Lytes, POCT (04/19/2019 12:58 PM EVENT LIGHTING SPECIALIST) athologist [facility] Sample Site, [facility] 04/19/2019 PCLX POCT 1:04 PM EVENT LIGHTING SPECIALIST Comment: ----ADDITIONAL INFORMATION---- Performed at the Point of Care pH, POCT 7.41 7.35 - 7.45 04/19/2019 1:04 PM EVENT LIGHTING SPECIALIST PCLX Comment: ----ADDITIONAL INFORMATION---- Performed at the Point of Care pCO2, POCT 43 32 - 45 mm Hg 04/19/2019 1:04 PM EVENT LIGHTING SPECIALIST PC LX Comment: ----ADDITIONAL INFORMATION---- Performed at the Point of Care pO2, POCT 160 (H) 83 - 108 mm Hg 04/19/2019 1:04 PM EVENT LIGHTING SPECIALIST PC LX Comment: ----ADDITIONAL INFORMATION---- Performed at the Point of Care Base, POCT 3 -2 - 3 mmol/L 04/19/2019 1:04 PM EVENT LIGHTING SPECIALIST PC LX Comment: ----ADDITIONAL INFORMATION---- Performed at the Point of Care HCO3, POCT 27 (H) 22 - 26 mmol/L 04/19/2019 1:04 PM EVENT LIGHTING SPECIALIST P CLX Comment: ----ADDITIONAL INFORMATION---- Performed at the Point of Care Sodium, POCT, B 137 135 - 145 mmol/L 04/19/2019 1:04 P M EVENT LIGHTING SPECIALIST PCLX Comment: ----ADDITIONAL INFORMATION---- Performed at the Point of Care Potassium, POCT, B 3.3 (L) 3.6 - 5.2 mmol/L 04/19/2019 1:0 4 PM EVENT LIGHTING SPECIALIST PCLX Comment: ----ADDITIONAL INFORMATION---- Performed at the Point of Care Hematocrit, POCT, B 39.0 35.5 - 44.9 % 04/19/2019 1:04 PM EVENT LIGHTING SPECIALIST PCLX Comment: ----ADDITIONAL INFORMATION---- Performed at the Point of Care Specimen Anatomical Collection Method Collection Time Receive d Time (Source) Location / / Volume Laterality Blood 04/19/2019 12:58 04/19/2019 1:04 PM EVENT LIGHTING SPECIALIST PM EVENT LIGHTING SPECIALIST Unknown Provider LAB POCT ORDERABLES - DEVICE Performing Organization Address [facility] Phon e Number [facility] [address] [place] [address] [place], [place] [id number] [place] [address] POC 200 [facility] (ABNORMAL) ACT (Activated Clotting Time), POCT (04/19/2019 12:48 PM EVENT LIGHTING SPECIALIST) athologist Signature Activated 369 (H) 84 - 139 04/19/2019 PCSM Clotting Time, sec 1:04 PM EVENT LIGHTING SPECIALIST POCT Specimen Anatomical Collection Method Collection Time Receive d Time (Source) Location / / Volume Laterality Blood 04/19/2019 12:48 04/19/2019 1:04 PM EVENT LIGHTING SPECIALIST PM EVENT LIGHTING SPECIALIST Unknown Provider LAB POCT ORDERABLES - DEVICE Performing Organization Address [facility] Phon e Number [facility] [address] [place], [place] [address] [place] [address] [facility] [address] [place] [address] (ABNORMAL) Glucose, POCT (04/19/2019 12:47 PM EVENT LIGHTING SPECIALIST) athologist Signature Glucose, POCT, 199 (H) 70 - 140 04/19/2019 PCLX B mg/dL 12:49 PM EVENT LIGHTING SPECIALIST Site [facility] 04/19/2019 PCLX 12:49 PM EVENT LIGHTING SPECIALIST Specimen Anatomical Collection Method Collection Time Receive d Time (Source) Location / / Volume Laterality Blood 04/19/2019 12:47 04/19/2019 PM EVENT LIGHTING SPECIALIST 12:49 PM EVENT LIGHTING SPECIALIST Unknown Provider LAB POCT ORDERABLES-MANUAL Performing Organization Address City/State/ZIP Code Phon e Number [facility] [address] [place] [address] [place] [address] [facility] [address] (ABNORMAL) ACT (Activated Clotting Time), POCT (04/19/2019 12:19 PM EVENT LIGHTING SPECIALIST) P athologist Signature Activated 341 (H) 84 - 139 04/19/2019 PCSM Clotting Time, sec 12:30 PM EVENT LIGHTING SPECIALIST POCT Specimen Anatomical Collection Method Collection Time Receive d Time (Source) Location / / Volume Laterality Blood 04/19/2019 12:19 04/19/2019 PM EVENT LIGHTING SPECIALIST 12:30 PM EVENT LIGHTING SPECIALIST Unknown Provider LAB POCT ORDERABLES - DEVICE Performing Organization Address [facility] Phon e Number POC [facility] [address] [place], [place] [address] [place] [address] [facility] [address] (ABNORMAL) Prothrombin Time (PT) (04/19/2019 12:16 PM EVENT LIGHTING SPECIALIST) [facility] Method Time Signature Prothrombin 95.8 (H) 9.4 - 12.5 04/19/2019 STMA Time, P sec 12:49 PM EVENT LIGHTING SPECIALIST INR 8.3 (CH) 0.9 - 1.1 04/19/2019 STMA 12:49 PM EVENT LIGHTING SPECIALIST Comment: ----ADDITIONAL INFORMATION---- Standard intensity warfarin therapeutic range: 2.0 to 3.0 ?? High intensity warfarin therapeutic rang e: 2.5 to 3.5 Specimen Anatomical Collection Method Collection Time Receive d Time (Source) Location / / Volume Laterality Blood (Blood, 04/19/2019 12:16 04/19/2019 Venous) PM EVENT LIGHTING SPECIALIST 12:23 PM EVENT LIGHTING SPECIALIST Aria Houser APRN C.N.P., M.S.N. LAB BLOOD ADD-ON Performing Organization Address City/State/ZIP Code Phon e Number [facility] - [address] [place], [place] [address] [facility] [place] [address] [facility] [place] [address] (ABNORMAL) ACT (Activated Clotting Time), POCT (04/19/2019 11:55 AM EVENT LIGHTING SPECIALIST) P athologist Signature Activated 296 (H) 84 - 139 04/19/2019 PCSM Clotting Time, sec 12:06 PM EVENT LIGHTING SPECIALIST POCT Specimen Anatomical Collection Method Collection Time Receive d Time (Source) Location / / Volume Laterality Blood 04/19/2019 11:55 04/19/2019 AM EVENT LIGHTING SPECIALIST 12:06 PM EVENT LIGHTING SPECIALIST Unknown Provider LAB POCT ORDERABLES - DEVICE Performing Organization Address City/[facility] [facility] Phon e Number POC RST [facility] INPATIENT [address] [place], [place] [address] LABS [place]CSM [place], [place] [id number] [place] [address] (ABNORMAL) ACT (Activated Clotting Time), POCT (04/19/2019 11:27 AM EVENT LIGHTING SPECIALIST) P athologist Signature Activated 353 (H) 84 - 139 04/19/2019 PCSM Clotting Time, sec 11:38 AM EVENT LIGHTING SPECIALIST POCT Specimen Anatomical Collection Method Collection Time Receive d Time (Source) Location / / Volume Laterality Blood 04/19/2019 11:27 04/19/2019 AM EVENT LIGHTING SPECIALIST 11:39 AM EVENT LIGHTING SPECIALIST Unknown Provider LAB POCT ORDERABLES - DEVICE Performing Organization Address [facility] Phon e Number POC [facility]ST [facility] INPATIENT [address] [place], [place] [address] LABS [place], [place] [id number] [place] [address] (ABNORMAL) ACT (Activated Clotting Time), POCT (04/19/2019 11:05 AM EVENT LIGHTING SPECIALIST) P athologist Signature Activated 296 (H) 84 - 139 04/19/2019 PCSM Clotting Time, sec 11:17 AM EVENT LIGHTING SPECIALIST POCT Specimen Anatomical Collection Method Collection Time Receive d Time (Source) Location / / Volume Laterality Blood 04/19/2019 11:05 04/19/2019 AM EVENT LIGHTING SPECIALIST 11:17 AM EVENT LIGHTING SPECIALIST Unknown Provider LAB POCT ORDERABLES - DEVICE Performing Organization Address City/[facility] Phon e Number POC [facility]ST [facility] INPATIENT [address] [place], [place] [address] [place] [address] [place] POC [address] (ABNORMAL) Basic Metabolic Panel (04/19/2019 10:46 AM EVENT LIGHTING SPECIALIST) P athologist Signature Potassium, P 3.6 3.6 - 5.2 04/19/2019 [facility] mmol/L 11:18 AM EVENT LIGHTING SPECIALIST Sodium, P 139 135 - 145 04/19/2019 [facility] mmol/L 11:18 AM EVENT LIGHTING SPECIALIST Chloride, P 100 98 - 107 04/19/2019 [facility] mmol/L 11:18 AM EVENT LIGHTING SPECIALIST Bicarbonate, P 25 22 - 29 04/19/2019 [facility] mmol/L 11:18 AM EVENT LIGHTING SPECIALIST Anion Gap, P 14 7 - 15 04/19/2019 [facility] 11:18 AM EVENT LIGHTING SPECIALIST BUN (Blood Urea 12 6 - 21 04/19/2019 [facility] Nitrogen), P mg/dL 11:18 AM EVENT LIGHTING SPECIALIST Creatinine 0.76 0.59 - 04/19/2019 [facility] 1.04 mg/dL 11:18 AM EVENT LIGHTING SPECIALIST eGFR-Black/Afric >90 >=60 04/19/2019 [facility] an Georgian mL/min/BSA 11:18 AM EVENT LIGHTING SPECIALIST Comment: ----ADDITIONAL INFORMATION---- Estimated GFR calculated using the 2009 CKD_EPI creatinine equation. eGFR Non-Black/ 84 >=60 mL/min/BSA 04/19/2019 11:18 AM EVENT LIGHTING SPECIALIST [facility] Comment: ----ADDITIONAL INFORMATION---- Estimated GFR calculated using the 2009 CKD_EPI creatinine equation. Calcium, Total, P 8.8 8.8 - 10.2 mg/dL 04/19/2019 11:1 8 AM EVENT LIGHTING SPECIALIST [facility] Glucose, P 210 (H) 70 - 140 mg/dL 04/19/2019 11:18 AM EVENT LIGHTING SPECIALIST [facility] Specimen Anatomical Collection Method Collection Time Receive d Time (Source) Location / / Volume Laterality Blood (Blood, 04/19/2019 10:46 04/19/2019 Venous) AM EVENT LIGHTING SPECIALIST 11:01 AM EVENT LIGHTING SPECIALIST Renetta Greer APRN, C.N.P., D.N.P. LAB BLOOD ADD-ON Performing Organization Address City/State/ZIP Code Phon e Number [facility] - [address] [place], [place] [address] [place] [address] [facility] [address] (ABNORMAL) CBC with Differential, Blood (04/19/2019 10:46 AM EVENT LIGHTING SPECIALIST) [facility] Method Time Signature Hemoglobin 13.6 11.6 - 04/19/2019 [facility] 15.0 g/dL 11:10 AM EVENT LIGHTING SPECIALIST Hematocrit 40.1 35.5 - 04/19/2019 [facility] 44.9 % 11:10 AM EVENT LIGHTING SPECIALIST Erythrocytes 4.42 3.92 - 04/19/2019 [facility] 5.13 11:10 AM EVENT LIGHTING SPECIALIST x10(12)/L MCV 90.7 78.2 - 04/19/2019 [facility] 97.9 fL 11:10 AM EVENT LIGHTING SPECIALIST RBC Distrib Width 11.9 (L) 12.2 - 04/19/2019 [facility] 16.1 % 11:10 AM EVENT LIGHTING SPECIALIST Platelet Count 359 157 - 371 04/19/2019 [facility] x10(9)/L 11:10 AM EVENT LIGHTING SPECIALIST Leukocytes 9.0 3.4 - 9.6 04/19/2019 [facility] x10(9)/L 11:10 AM EVENT LIGHTING SPECIALIST Neutrophils 5.07 1.56 - 04/19/2019 [facility] 6.45 11:10 AM EVENT LIGHTING SPECIALIST x10(9)/L Lymphocytes 2.74 0.95 - 04/19/2019 [facility] 3.07 11:10 AM EVENT LIGHTING SPECIALIST x10(9)/L Monocytes 0.65 0.26 - 04/19/2019 [facility] 0.81 11:10 AM EVENT LIGHTING SPECIALIST x10(9)/L Eosinophils 0.40 0.03 - 04/19/2019 [facility] 0.48 11:10 AM EVENT LIGHTING SPECIALIST x10(9)/L Basophils 0.14 (H) 0.01 - 04/19/2019 [facility] 0.08 11:10 AM EVENT LIGHTING SPECIALIST x10(9)/L Specimen Anatomical Collection Method Collection Time Receive d Time (Source) Location / / Volume Laterality Blood (Blood, 04/19/2019 10:46 04/19/2019 Venous) AM EVENT LIGHTING SPECIALIST 11:01 AM EVENT LIGHTING SPECIALIST Renetta Greer APRN, C.N.P., D.N.P. LAB BLOOD ADD-ON Performing Organization Address City/State/ZIP Code Phon e Number [facility] - [address] [place], [place] [address] [facility] [address] [facility] [address] (ABNORMAL) Prothrombin Time (PT) (04/19/2019 10:46 AM EVENT LIGHTING SPECIALIST) [facility] Method Time Signature Prothrombin 58.0 (H) 9.4 - 12.5 04/19/2019 [facility] Time, P sec 11:14 AM EVENT LIGHTING SPECIALIST INR 5.1 (CH) 0.9 - 1.1 04/19/2019 [facility] 11:14 AM EVENT LIGHTING SPECIALIST Comment: ----ADDITIONAL INFORMATION---- Standard intensity warfarin therapeutic range: 2.0 to 3.0 ?? High intensity warfarin therapeutic rang e: 2.5 to 3.5 Specimen Anatomical Collection Method Collection Time Receive d Time (Source) Location / / Volume Laterality Blood (Blood, 04/19/2019 10:46 04/19/2019 Venous) AM EVENT LIGHTING SPECIALIST 11:01 AM EVENT LIGHTING SPECIALIST Ana Pickett APRN.N.P., D.N.P. LAB BLOOD ADD-ON Performing Organization Address City/[facility] Phon e Number [facility] - [address] Type and Screen (with reflex Antibody ID) (04/19/2019 10:45 AM EVENT LIGHTING SPECIALIST) [facility] Method Time Signature ABORh A Pos Not 04/19/2019 [facility] applicable 11:25 AM EVENT LIGHTING SPECIALIST Antibody Negative Negative 04/19/2019 STRM Screen 11:40 AM EVENT LIGHTING SPECIALIST Type & Screen 04/22/2019 04/19/2019 STRM Expiration 23:59 11:25 AM EVENT LIGHTING SPECIALIST Testing Krista DEFAULT 04/19/2019 STRM Location 11:00 AM EVENT LIGHTING SPECIALIST Specimen Anatomical Collection Method Collection Time Receive d Time (Source) Location / / Volume Laterality Blood (Arm, 04/19/2019 10:45 04/19/2019 Right) AM EVENT LIGHTING SPECIALIST 11:00 AM EVENT LIGHTING SPECIALIST Renetta Greer APRN, Ana.N.P., D.N.P. LAB BLOOD BANK T EST ORDERABLES Performing Organization Address [facility] Phon e Number [facility] - [address] (ABNORMAL) Glucose, POCT (04/19/2019 10:44 AM EVENT LIGHTING SPECIALIST) P athologist Signature Glucose, POCT, 206 (H) 70 - 140 04/19/2019 PCLX B mg/dL 10:55 AM EVENT LIGHTING SPECIALIST Site ARTLINE 04/19/2019 PCLX 10:55 AM EVENT LIGHTING SPECIALIST Specimen Anatomical Collection Method Collection Time Receive d Time (Source) Location / / Volume Laterality Blood 04/19/2019 10:44 04/19/2019 AM EVENT LIGHTING SPECIALIST 10:55 AM EVENT LIGHTING SPECIALIST Unknown Provider LAB POCT ORDERABLES-MANUAL Performing Organization Address [facility] Phon e Number POC [facility] [address] [place] [address] [place] [address] [place] POC [address] [facility] (ABNORMAL) ACT (Activated Clotting Time), POCT (04/19/2019 10:41 AM EVENT LIGHTING SPECIALIST) P athologist Signature Activated 341 (H) 84 - 139 04/19/2019 PCSM Clotting Time, sec 10:53 AM EVENT LIGHTING SPECIALIST POCT Specimen Anatomical Collection Method Collection Time Receive d Time (Source) Location / / Volume Laterality Blood 04/19/2019 10:41 04/19/2019 AM EVENT LIGHTING SPECIALIST 10:53 AM EVENT LIGHTING SPECIALIST Unknown Provider LAB POCT ORDERABLES - DEVICE Performing Organization Address [facility] Phon e Number POC RST [facility] INPATIENT [address] [place], [place] [address] [place] [address] [place] POC [address] [place] [address] Echo - Intraprocedural Images Only (04/19/2019 8:52 AM EVENT LIGHTING SPECIALIST) Specimen (Source) Anatomical Location Collection Method / Collectio n Time Received Time / Laterality Volume Narrative CV EIMS - 04/21/2019 8:52 AM EVENT LIGHTING SPECIALIST Echocardiographic images obtained during EP. See EP report for findings. Marla Pham CV ECHO PROCEDURES Performing Organization Address [facility] Phon e Number CV EIMS NA INR, POCT (04/19/2019 8:37 AM EVENT LIGHTING SPECIALIST) P athologist Signature INR, POCT, B 2.4 04/19/2019 PCED 11:59 AM EVENT LIGHTING SPECIALIST Comment: ----ADDITIONAL INFORMATION---- Standard intensity warfarin therapeutic range: 2.0 to 3.0 ?? High intensity warfarin therapeutic rang e: 2.5 to 3.5 Specimen Anatomical Collection Method Collection Time Receive d Time (Source) Location / / Volume Laterality 04/19/2019 8:37 AM 0 EVENT LIGHTING SPECIALIST 11:59 AM EVENT LIGHTING SPECIALIST Unknown Provider LAB POCT ORDERABLES - DEVICE Performing Organization Address City/[facility]/ZIP Code Phon e Number POC RST [facility] [address] [place] [address] [place] [address] [facility] 200 [facility] (ABNORMAL) Glucose, POCT (04/19/2019 8:37 AM EVENT LIGHTING SPECIALIST) P athologist Signature Glucose, POCT, 224 (H) 70 - 140 04/19/2019 PCLX B mg/dL 8:41 AM EVENT LIGHTING SPECIALIST Specimen Anatomical Collection Method Collection Time Receive d Time (Source) Location / / Volume Laterality Blood 04/19/2019 8:37 AM 0 8:41 EVENT LIGHTING SPECIALIST AM EVENT LIGHTING SPECIALIST Unknown Provider LAB POCT ORDERABLES-MANUAL Performing Organization Address [facility] Phon e Number POC [facility] [address] [place] [address] [place] [address] [facility] 200 [facility] documented in this encounter Visit Diagnoses Diagnosis [...] tablet 1,000 mg Given 04/21/2019 9:55 AM EVENT LIGHTING SPECIALIST 1,000 mg (TYLENOL) 1,000 mg, oral, Every 6 hours PRN, mild pain or score 1-3 of 10, Starting on Fri04/19/19 at 1502, Postprocedure (CV) benzocaine-menthol 15-3.6 mg per lozenge 1 Given 04/21 9:55 AM EVENT LIGHTING SPECIALIST 1 lozenge lozenge (CEPACOL) 1 lozenge, oral, Every 4 hours PRN, sore throat, Starting on Fri04/19/19 at 0934, Postprocedure (CV) Given 04/21/2019 4:53 AM EVENT LIGHTING SPECIALIST 1 lozenge Given 04/20/2019 9:14 PM EVENT LIGHTING SPECIALIST 1 lozenge clotrimazole-betamethasone 1-0.05 % Given 04/21/2019 8:36 AM EVENT LIGHTING SPECIALIST 1 application cream 1 application (LOTRISONE) 1 application, topical, 2 times daily, First dose on Fri04/19/19 at 2100, Postprocedure (CV) Given 04/20/2019 8:20 PM EVENT LIGHTING SPECIALIST 1 application Given 04/20/2019 8:49 AM EVENT LIGHTING SPECIALIST 1 application docusate sodium capsule 100 mg (COLACE) Given 04/21/2019 10:29 AM EVENT LIGHTING SPECIALIST 100 mg 100 mg, oral, 2 times daily PRN, constipation, Starting on Fri04/19/19 at 1502, Postprocedure (CV), Do NOT crush or chew. DULoxetine DR capsule 30 mg (CYMBALTA) Given 04/21/2019 8:38 AM EVENT LIGHTING SPECIALIST 30 mg 30 mg, oral, 2 times daily, First dose on Fri04/19/19 at 2100, Postprocedure (CV), See tube feeding guidelines for tube feeding administration instructions. Given 04/20/2019 8:13 PM EVENT LIGHTING SPECIALIST 30 mg Given 04/20/2019 8:46 AM EVENT LIGHTING SPECIALIST 30 mg ferrous sulfate tablet 65 mg of iron Given 04/21/2019 8:37 AM EVENT LIGHTING SPECIALIST 65 mg of iron 65 mg of iron, oral, Daily, First dose on Fri04/20/19 at 0900, Postprocedure (CV) Given 04/20/2019 8:45 AM EVENT LIGHTING SPECIALIST 65 mg of iron flecainide tablet 100 mg (TAMBOCOR) Given 04/21/2019 8:38 AM EVENT LIGHTING SPECIALIST 100 mg 100 mg, oral, 2 times daily, First dose on Fri04/19/19 at 2100 Given 04/20/2019 8:13 PM EVENT LIGHTING SPECIALIST 100 mg Given 04/20/2019 8:45 AM EVENT LIGHTING SPECIALIST 100 mg fluticasone furoate 100 mcg/actuation inhaler Given 8:36 AM EVENT LIGHTING SPECIALIST 1 puff 1 puff (ARNUITY ELLIPTA) 1 puff, inhalation, Daily, First dose on Fri04/20/19 at 0900, Postprocedure (CV), Rinse mouth with water after use to reduce aftertaste and incidence of candidiasis. Do not swallow. Given 04/20/2019 8:48 AM EVENT LIGHTING SPECIALIST 1 puff furosemide injection 20 mg (LASIX) Given 04/20/2019 9:13 AM EVENT LIGHTING SPECIALIST 20 mg 20 mg, intravenous, Once, On Fri04/20/19 at 0700, For 1 dose, Adults: Doses less than 120 mg: IV push over 20 mg/minute. Doses 120 mg or greater: IVPB at 4 mg/minute. Peds/Neonates: Doses less than 120 mg over 0.5 mg/kg/minute. Doses 120 mg or greater: IVPB at 4 mg/minute. furosemide injection 20 mg (LASIX) Given 04/20/2019 1:25 PM EVENT LIGHTING SPECIALIST 20 mg 20 mg, intravenous, Once, On Fri04/20/19 at 1330, For 1 dose, N/a furosemide injection 40 mg (LASIX) Given 04/21/2019 6:30 AM EVENT LIGHTING SPECIALIST 40 mg 40 mg, intravenous, Once, On Fri04/21/19 at 0700, For 1 dose, N/a levothyroxine tablet 25 mcg (SYNTHROID, Given 04/21/2019 6:30 AM EVENT LIGHTING SPECIALIST 25 mcg LEVOTHROID) 25 mcg, oral, Daily before breakfast, First dose on Fri04/20/19 at 0700, Postprocedure (CV) Given 04/20/2019 5:37 AM EVENT LIGHTING SPECIALIST 25 mcg lidocaine 10 mg/mL (1 %) injection 1 Given 04/19/2019 1:46 PM CS T 7 mL Bilateral mL (XYLOCAINE) 1 mL, intradermal, As needed, with any sheath manipulation. (May repeat twice up to 1 mL each time if patient complains of pain or discomfort at injection site), Starting on Fri04/19/19 at 0911, Intraprocedure (CV) Given 04/19/2019 10:15 AM EVENT LIGHTING SPECIALIST 10 mL Othe r magnesium sulfate in water IVPB 2 g New Bag 04/19/2019 6:06 PM EVENT LIGHTING SPECIALIST 2 g 25 mL/hr 2 g, intravenous, at 25 mL/hr, Administer over 120 Minutes, Once, On Fri04/19/19 at 1745, For 1 dose, Over 2 hours. premix bag metFORMIN tablet 500 mg (GLUCOPHAGE) Given 04/21/2019 8:38 AM EVENT LIGHTING SPECIALIST 500 mg 500 mg, oral, 2 times daily with meals, First dose on Fri04/19/19 at 1700 Given 04/20/2019 5:20 PM EVENT LIGHTING SPECIALIST 500 mg Given 04/20/2019 8:46 AM EVENT LIGHTING SPECIALIST 500 mg methyl salicylate-menthol 30-10 % cream 1 application (ICY HOT) 1 application, topical, Every 2 hour PRN, muscle/joint pain, Starting on Fri04/19/19 at 1628, @@ Generic Substitution for Johnny @@ @ metoprolol tartrate tablet 50 mg (LOPRES SOR) Given 04/21/2019 8:37 AM EVENT LIGHTING SPECIALIST 50 mg 50 mg, oral, 2 times daily, First dose on Fri04/19/19 at 2100 Given 04/20/2019 8:13 PM EVENT LIGHTING SPECIALIST 50 mg Given 04/20/2019 8:45 AM EVENT LIGHTING SPECIALIST [address] capsule 40 mg (PriLOSEC) Given 04/21/2019 6:30 AM EVENT LIGHTING SPECIALIST 40 mg 40 mg, oral, Daily before breakfast, First dose on Fri04/21/19 at 0700, Postprocedure (CV), Do NOT crush or chew. Capsule may be opened and the contents taken without crushing or chewing. potassium chloride ER tablet 40 mEq Given 04/19/2019 6:02 PM EVENT LIGHTING SPECIALIST 40 mEq (KLORCON/K-TAB) 40 mEq, oral, Once, [...] 8.6 mg (SENOKOT) Given 04/21/2019 10:29 AM EVENT LIGHTING SPECIALIST 8.6 mg 8.6 mg, oral, As needed, constipation, Starting on Fri04/19/19 at 0930, Postprocedure (CV) simvastatin tablet 20 mg (ZOCOR) Given 04/20/2019 8:13 PM EVENT LIGHTING SPECIALIST 20 mg 20 mg, oral, Daily at bedtime, First dose on Fri04/19/19 at 2100, Postprocedure (CV) Given 04/19/2019 8:12 PM EVENT LIGHTING SPECIALIST 20 mg sodium chloride 0.9 % injection 10 mL 10 mL, intravenous, As needed, line care , Peripheral Intravenous Catheter and Rapid Infusion Catheter, Starting on Fri at 2109, Prior to blood sampling, post blood transfusion or post blood sampling. sodium chloride 0.9 % injection 3 mL Given 04/20/2019 9:15 PM EVENT LIGHTING SPECIALIST 3 mL 3 mL, intravenous, As needed, line care, Peripheral Intravenous Catheter and Rapid Infusion Catheter, Starting on Fri04/20/19 at 2109, Prior to and following infusion and between multiple consecutive infusions. sodium chloride 0.9 % injection 3 mL Given 04/21/2019 8:38 AM EVENT LIGHTING SPECIALIST 3 mL 3 mL, intravenous, Every 12 hours scheduled, First dose on Fri04/21/19 at 0900, Peripheral Intravenous Catheter and Rapid Infusion Catheter: When no infusion to maintain patency. SUMAtriptan tablet 50 mg (IMITREX) Given 04/21/2019 4:44 AM EVENT LIGHTING SPECIALIST 50 mg 50 mg, oral, Every 2 hour PRN, migraine, Starting on Fri04/19/19 at 0930, For 2 doses, Postprocedure (CV), SUMAtriptan oral was interchanged for rizatriptan Given 04/20/2019 11:29 AM EVENT LIGHTING SPECIALIST 50 mg topiramate tablet 25 mg (TOPAMAX) Given 04/21/2019 8:38 AM EVENT LIGHTING SPECIALIST 25 mg 25 mg, oral, Daily, First dose on Fri04/20/19 at 0900, Postprocedure (CV) Given 04/20/2019 8:46 AM EVENT LIGHTING SPECIALIST 25 mg warfarin management (COUMADIN) oral, Daily, [...] 6 mg (COUMADIN) Given 04/19/2019 6:02 PM EVENT LIGHTING SPECIALIST 6 mg 6 mg, oral, Once, On Fri04/19/19 at 1700, For 1 dose warfarin tablet 6 mg (COUMADIN) Given 04/20/2019 5:20 PM EVENT LIGHTING SPECIALIST 6 mg 6 mg, oral, Once, On Fri04/20/19 at 1700, For 1 dose documented in this encounter Active and Recently Administered Medications Times are shown in EVENT LIGHTING SPECIALIST. Scheduled Medication Order 04/19/2019 04/20/2019 04/21/2019 clotrimazole-betamethasone 1-0.05 % cream 1 applicatio n (LOTRISONE) 2011 (Given - Provider: Naren Michaels R.N.) 0849 (Given - Provider: Jhony smith R.N.)2019 (Given - Provider: Valerie Jaquez R.N.) 0836 (Given - Provider: Talya Duffy R.N.)0945 (MAR Hold - Provider: Transfer Provider, Automatic - Reason: Patient not available)0954 (MAR Unhold - Provider: Transfer Provider, Automatic) 1 application, topical, 2 times daily, F irst dose on Fri04/19/19 at 2100, Postprocedure (CV) DULoxetine DR capsule 30 mg (CYMBALTA) 2011 (Given - P rovider: Naren Michaels R.N.) 0846 (Given - Provider: Jhony smith REdilmaNEdilma)2012 (Given - Provider: Valerie Jaquez RMary Ann) 0838 (Given - Provider: Talya Duffy RMary Ann)0945 (MAR Hold - Provider: Transfer Provider, Automatic - Reason: Patient not available)0954 ([facility] Unhold - Provider: Transfer Provider, Automatic) 30 mg, oral, 2 times daily, First dose o n Fri04/19/19 at 2100, Postprocedure (CV), See tube feeding guidelines for tube feeding administration instructions. ferrous sulfate tablet 65 mg of iron 084 5 (Given - Provider: Jhony Diego R.N.) 0837 (Given - Provider: Talya tierney REdilmaNEdilma)0945 (MAR Hold - Provider: Transfer Provider, Automatic - Reason: Patient not available)0954 ([facility] Unhold - Provider: Transfer Provider, Automatic) 65 mg of iron, oral, Daily, First dose o n Fri04/20/19 at 0900, Postprocedure (CV) flecainide tablet 100 mg (TAMBOCOR) 2011 (Given - Prov ider: Naren Michaels REdilmaNEdilma) 0845 (Given - Provider: Jhony smith REdilmaNEdilma)2012 (Given - Provider: Valerie Jaquez REdilmaNEdilma) 0838 (Given - Provider: Talya tierney REdilmaNEdilma)0945 ([facility] Hold - Provider: Transfer Provider, Automatic - Reason: Patient not available)0954 ([facility] Unhold - Provider: Transfer Provider, Automatic) 100 mg, oral, 2 times daily, First dose on Fri04/19/19 at 2100 fluticasone furoate 100 mcg/actuation inhaler 1 puff (ARNUIT Y ELLIPTA) 0848 (Given - Provider: Jhony Diego RMary Ann) 0836 (Given - Provider: Talya Duffy REdilmaNEdilma)0945 ([facility] Hold - Provider: Transfer Provider, Automatic - Reason: Patient not available)0954 ([facility] Unhold - Provider: Transfer Provider, Automatic) 1 puff, inhalation, Daily, First dose on Fri04/20/19 at 0900, Postprocedure (CV), Rinse mouth with water after use to reduce aftertaste and incidence of candidiasis. Do not swallow. furosemide injection 20 mg (LASIX) (COMPLETED) 09 (Given - Provider: Jhony Diego RMary Ann) [...] LEVOTHROID) 0537 (Given - Provider: Naren Michaels RMary Ann) 0630 (Given - Provider: Candy Deluna REdilmaNEdilma)0945 (MAY Hold - Provider: Transfer Provider, Automatic - Reason: Patient not available)0954 ([facility] Unhold - Provider: Transfer Provider, Automatic) 25 mcg, oral, Daily before breakfast, Fi rst dose on Fri04/20/19 at 0700, Postprocedure (CV) magnesium sulfate in water IVPB 2 g (COMPLETED) 1805 ( New Bag - Provider: Jhony Diego R.N.) 2 g, intravenous, at 25 mL/hr, Administe r over 120 Minutes, Once, On Fri04/19/19 at 1745, For 1 dose, Over 2 hours. premix bag metFORMIN tablet 500 mg (GLUCOPHAGE) 1802 (Given - Pro vider: Jhony Diego RManjeet.) 0846 (Given - Provider: Jhony smith R.N.)1720 (Given - Provider: Jhony Diego REdilmaN.) 0838 (Given - Provider: Talya tierney R.N.)0945 (MAY Hold - Provider: Transfer Provider, Automatic - Reason: Patient not available)0954 ([facility] Unhold - Provider: Transfer Provider, Automatic) 500 mg, oral, 2 times daily with meals, First dose on Fri 0 at 1700 metoprolol tartrate tablet 50 mg (LOPRESSOR) 2011 (Giv en - Provider: Naren Michaels RMary Ann) 0845 (Given - Provider: Jhony smith R.N.)2012 (Given - Provider: Valerie Jaquez REdilmaNEdilma) 0837 (Given - Provider: Talya Duffy R.NEdilma)0945 (MAY Hold - Provider: Transfer Provider, Automatic - Reason: Patient not available)0954 ([facility] Unhold - Provider: Transfer Provider, Automatic) 50 mg, oral, 2 times daily, First dose on Fri04/19/[address] capsule 40 mg (PriLOSEC) 0630 (Given - Provider: Candy Deluna REdilmaN.)0945 ([facility] Hold - Provider: Transfer Provider, Automatic - Reason: Patient not available)0954 ([facility] Unhold - Provider: Transfer Provider, Automatic) 40 mg, oral, Daily before breakfast, Fir st dose on Fri04/21/19 at 0700, Postprocedure (CV), Do NOT crush or chew. Capsule may be opened and the contents taken without crushing or chewing. potassium chloride ER tablet 40 mEq (KLORCON/K-TAB) (C OMPLETED) 1801 (Given - Provider: Jhony Diego R.NEdilma) 40 mEq, oral, Once, On Fri04/19/19 at 16 30, For 1 dose, Give with food Swallow whole. Do NOT crush, chew, or split tablet. simvastatin tablet 20 mg (ZOCOR) 2011 (Given - Provide r: Naren Michaels REdilmaNEdilma) 2012 (Given - Provider: Valerie Jaquez REdilmaNEdilma) 0945 ([facility] Hold - Provider: Transfer Provider, Automatic - Reason: Patient not available)0954 ([facility] Unhold - Provider: Transfer Provider, Automatic) 20 mg, oral, Daily at bedtime, First dos e on Fri04/19/19 at 2100, Postprocedure (CV) sodium chloride 0.9 % injection 3 mL 0838 (Given - Provider: Talya Duffy REdilmaNEdilma)0945 ([facility] Hold - Provider: Transfer Provider, Automatic - Reason: Patient not available)0954 ([facility] Unhold - Provider: Transfer Provider, Automatic) 3 mL, intravenous, Every 12 hours schedu led, First dose on Fri04/21/19 at 0900, Peripheral Intravenous Catheter and Rapid Infusion Catheter: When no infusion to maintain patency. topiramate tablet 25 mg (TOPAMAX) 0846 ( Given - Provider: Jhony Diego R.N.) 0838 (Given - Provider: Talya tierney R.N.)0945 ([facility] Hold - Provider: Transfer Provider, Automatic - Reason: Patient not available)0954 ([facility] Unhold - Provider: Transfer Provider, Automatic) 25 mg, oral, Daily, First dose on Fri04/20/19 at 0900, Postproce dure (CV) warfarin management (COUMADIN) 1700 (Due) 0 945 ([facility] Hold - Provider: Transfer Provider, Automatic - Reason: Patient not available)0954 ([facility] Unhold - Provider: Transfer Provider, Automatic) oral, [...] 04/21/2019 acetaminophen tablet 1,000 mg (TYLENOL) 0945 ([facility] Hold - Provider: Transfer Provider, Automatic - Reason: Patient not available)0954 ([facility] Unhold - Provider: Transfer Provider, Automatic)0955 (Given - Provider: Talya Duffy R.N.) 1,000 mg, oral, Every 6 hours PRN, mild pain or score 1-3 of 10, Starting on Fri04/19/19 at 1502, Postprocedure (CV) albuterol 90 mcg/actuation inhaler 2 puff (PROVENTIL HFA,VENTOLI N HFA) 0945 ([facility] Hold - Provider: Transfer Provider, Automatic - Reason: Patient not available)0953 ([facility] Unhold - Provider: Transfer Provider, Automatic) 2 puff, inhalation, Every 4 hours PRN, s hortness of breath, Starting Fri04/19/19 at 0928, Postprocedure (CV) alum-mag hydroxide-simeth 200-200-20 mg/5 mL suspension 15 mL (M AALOX) 0945 ([facility] Hold - Provider: Transfer Provider, Automatic - Reason: Patient not available)0953 ([facility] Unhold - Provider: Transfer Provider, Automatic) 15 mL, oral, Every 6 hours PRN, indigest ion, Starting Fri04/19/19 at 0928, Postprocedure (CV) atropine injection 0.5 mg 0945 ( [facility] Hold - Provider: Transfer Provider, Automatic - Reason: Patient not available)0954 ([facility] Unhold - Provider: Transfer Provider, Automatic) 0.5 mg, intravenous, Once as needed, for pulse less than 50 beats per minute, Starting Fri04/19/19 at 1502, For 1 dose, Postprocedure (CV) benzocaine-menthol 15-3.6 mg per lozenge 1 lozenge (CE PACOL) 2202 (Given - Provider: Naren Michaels RMary Ann) 0242 (Given - Provider: Naren mendiola, R.N.)0913 (Given - Provider: Jhony Diego R.N.)1720 (Given - Provider: Jhony Diego R.N.)2114 (Given - Provider: Valerie Jaquez R.N.) 0453 (Given - Provider: Aria Green R.N.)0945 ([facility] Hold - Provider: Transfer Provider, Automatic - Reason: Patient not available)0954 ([facility] Unhold - Provider: Transfer Provider, Automatic)0955 (Given - Provider: Talya Duffy REdilmaNEdilma) 1 lozenge, oral, Every 4 hours PRN, sore throat, Starting on Fri04/19/19 at 0934, Postprocedure (CV) carboxymethylcellulose 0.5 % ophthalmic solution 1 drop (REFRESH PLUS) 0945 ([facility] Hold - Provider: Transfer Provider, Automatic - Reason: Patient not available)0954 ([facility] Unhold - Provider: Transfer Provider, Automatic) 1 drop, both eyes, 4 times daily PRN, dr alber eyes, Starting Fri04/19/19 at 0931, Postprocedure (CV) diazePAM tablet 2 mg (VALIUM) 09 45 ([facility] Hold - Provider: Transfer Provider, Automatic - Reason: Patient not available)0954 ([facility] Unhold - Provider: Transfer Provider, Automatic) 2 mg, oral, Every 2 hour PRN, anxiety, m uscle spasms, Starting 04/19/19 at 1502, For 2 doses, Postprocedure (CV), May repeat once if first dose ineffective. Until sheath removal. docusate sodium capsule 100 mg (COLACE) 0945 ([facility] Hold - Provider: Transfer Provider, Automatic - Reason: Patient not available)0954 ([facility] Unhold - Provider: Transfer Provider, Automatic)1038 (Not Given - Provider: Talya Duffy R.Marlon. - Reason: Other) 100 mg, oral, 2 times daily PRN, constip ation, Starting 04/19/19 at 0934, Postprocedure (CV), Do NOT crush or chew. docusate sodium capsule 100 mg (COLACE) 0945 ([facility] Hold - Provider: Transfer Provider, Automatic - Reason: Patient not available)0954 ([facility] Unhold - Provider: Transfer Provider, Automatic)1029 (Given - Provider: Talya Duffy R.N.) 100 mg, oral, 2 times daily PRN, constip ation, Starting on Fri04/19/19 at 1502, Postprocedure (CV), Do NOT crush or chew. fentaNYL injection 25 mcg (SUBLIMAZE) 0945 ([facility] Hold - Provider: Transfer Provider, Automatic - Reason: Patient not available)0954 ([facility] Unhold - Provider: Transfer Provider, Automatic) 25 mcg, intravenous, Every 2 hour PRN, m oderate pain or score 4-6 of 10, Starting 04/19/19 at 1502, Postprocedure (CV), May repeat once in dosing interval, if patient unable to take oral analgesics or oral analgesics are ineffective fentaNYL injection 50 mcg (SUBLIMAZE) 0945 ([facility] Hold - Provider: Transfer Provider, Automatic - Reason: Patient not available)0954 ([facility] Unhold - Provider: Transfer Provider, Automatic) 50 [...] Intraprocedure (CV) melatonin tablet 3 mg 0945 ([facility] Hold - Provider: Transfer Provider, Automatic - Reason: Patient not available)0954 ([facility] Unhold - Provider: Transfer Provider, Automatic) 3 mg, oral, Bedtime PRN, sleep, Starting Fri04/19/19 at 0934, Postprocedure (CV) methyl salicylate-menthol 30-10 % cream 1 application (ICY HOT) 0945 ([facility] Hold - Provider: Transfer Provider, Automatic - Reason: Patient not available)0954 ([facility] Unhold - Provider: Transfer Provider, Automatic) 1 application, topical, Every 2 hour PRN , muscle/joint pain, Starting on Fri04/19/19 at 1628, @@ Generic Substitution for BenGay @@@ midazolam (PF) injection 1 mg (VERSED) 0945 ([facility] Hold - Provider: Transfer Provider, Automatic - Reason: Patient not available)0954 ([facility] Unhold - Provider: Transfer Provider, Automatic) 1 mg, intravenous, Every 2 hour PRN, anx iety, muscle spasms, Starting Fri04/19/19 at 1502, For 2 doses, Postprocedure (CV), for over 2 minutes. May repeat x1 dosing interval. Patient must be NPO for 2 hours prior to giving. Until sheath removal. naloxone injection 0.2 mg (NARCAN) 0945 ([facility] Hold - Provider: Transfer Provider, Automatic - Reason: Patient not available)0954 ([facility] Unhold - Provider: Transfer Provider, Automatic) 0.2 mg, intravenous, As needed, respirat ory depression, Starting Fri04/19/19 at 1502, Postprocedure (CV), For respiratory rate less than 8 breaths per minute or RASS score of -3, -4, -5. Apply oxygen to keep oxygen saturations greater than 90% and notify service. oxyCODONE IR tablet 5 mg (ROXICODONE) 0945 ([facility] Hold - Provider: Transfer Provider, Automatic - Reason: Patient not available)0954 ([facility] Unhold - Provider: Transfer Provider, Automatic) 5 mg, oral, Every 6 hours PRN, moderate pain or score 4-6 of 10, Starting Fri04/19/19 at 1502, Postprocedure (CV), If acetaminophen ineffective and patient able to take oral analgesics polyethylene glycol powder packet 17 g (MIRALAX) 0945 ([facility] Hold - Provider: Transfer Provider, Automatic - Reason: Patient not available)0954 ([facility] Unhold - Provider: Transfer Provider, Automatic) 17 g, oral, As needed, constipation, Sta rting Fri04/19/19 at 0929, For 237 days, Postprocedure (CV), Dissolve in 240 mLs (8 ounces) of water prior to giving. Avoid mixing with starch-based thickened liquids. prochlorperazine injection 5 mg (COMPAZINE) 0945 ([facility] Hold - Provider: Transfer Provider, Automatic - Reason: Patient not available)0954 ([facility] Unhold - Provider: Transfer Provider, Automatic) 5 mg, intravenous, Every 6 hours PRN, na usea, vomiting, Starting on Fri04/19/19 at 1744 promethazine injection 6.25 mg (PHENERGAN) 0945 ([facility] Hold - Provider: Transfer Provider, Automatic - Reason: Patient not available)0954 ([facility] Unhold - Provider: Transfer Provider, Automatic) 6.25 mg, intravenous, Every 6 hours PRN, nausea, vomiting, Starting on Fri04/19/19 at 1744 sennosides tablet 8.6 mg (SENOKOT) 0945 ([facility] Hold - Provider: Transfer Provider, Automatic - Reason: Patient not available)0954 ([facility] Unhold - Provider: Transfer Provider, Automatic)1029 (Given - Provider: Talya Duffy R.N.) 8.6 mg, oral, As needed, constipation, S tarting on Fri04/19/19 at 0930, Postprocedure (CV) sodium chloride 0.9 % injection 10 mL 0945 ([facility] Hold - Provider: Transfer Provider, Automatic - Reason: Patient not available)0954 ([facility] Unhold - Provider: Transfer Provider, Automatic) 10 mL, intravenous, As needed, line care , Peripheral Intravenous Catheter and Rapid Infusion Catheter, Starting on Fri04/20/19 at 2109, Prior to blood sampling, post blood transfusion or post blood sampling. sodium chloride 0.9 % injection 3 mL 211 5 (Given - Provider: Valerie Jaquez REdilmaNEdilma) 0945 ([facility] Hold - Provider: Transfer Prov ider, Automatic - Reason: Patient not available)0954 ([facility] Unhold - Provider: Transfer Provider, Automatic) 3 mL, intravenous, As needed, line care, Peripheral Intravenous Catheter and Rapid Infusion Catheter, Starting on Fri04/20/19 at 2109, Prior to and following infusion and between multiple consecutive infusions. SUMAtriptan tablet 50 mg (IMITREX) (COMPLETED) 1129 (Given - Provider: Jhony Diego REdlimaN.) 0444 (Given - Provider: Candy Deluna REdilmaNEdlima) 50 mg, oral, Every 2 hour PRN, migraine, Starting on Fri04/19/19 at 0930, For 2 doses, Postprocedure (CV), SUMAtriptan oral was interchanged for rizatriptan documented in this encounter Additional Health Concerns Assessment Noted Time PHQ-9 Depression Total Score: 11 05/04/2013 4:05 PM CS T documented as of this encounter Care Teams Bingo Caller Relationship Specialty Start Date End Date Elsewhere, Pcp PCP - General Internal Medicine 07/27/18 documented as of this encounter
--- OUTSIDE RECORDS SUMMARY | 2022-01-08 16:40 | XMS_ITS | Encounter Summary ---
:1955 Author Organization [facility] Address [address] [place] [address] Care Team Providers Name Role Phone Elsewhere, Pcp Primary Care Provider Unavailable Reason for Visit Reason Onset Date Comments Plan update 01/25/2019 Communication Encounter Details Date Type Department Care Team Description 01/25/2019 Clinical Department of [facility], Plan update Communication Cardiovascular Por[facility] (Communicati on) [facility] [place] [address] [facility] [address] [place] [phone] [place] [address] Social History Tobacco Use Types Packs/Day Years [...] do you attend sabianism or Never 2018 evangelical services? Do you [...] - 01/25/2019 1:38 PM CST Sierra from [facility] called as she wondered the plan for patient and at what point would be pacemaker placement. Please call Sierra at [phone] Thank you Diana (Answering for Deepti) K TOPPER documented in this encounter Plan of Treatment Not on filedocumented as of this encounter Visit Diagnoses Not on filedocumented in this encounter Additional Health Concerns Assessment Noted Time PHQ-9 Depression Total Score: 05/04/2013 4:05 PM CS T documented as of this encounter Care Teams Remelt Furnace Expediter Relationship Specialty Start Date End Date Elsewhere, Pcp PCP - General Internal Medicine 07/27/18 documented as of this encounter
--- OUTSIDE RECORDS SUMMARY | 2022-01-08 16:40 | XMS_ITS | Encounter Summary ---
:1955 Author Organization [facility] Address [address] [place] [address] Care Team Providers Name Role Phone Elsewhere, Pcp Primary Care Provider Unavailable Encounter Details Date Type Department Care Team Description 03/09/2019 Clinical Communication Department of Shobha, Cardiovascular Medicine [facility] in [facility] [address] [facility] [address] [place] [address] [place], [place] [phone] Social History Tobacco Use Types Packs/Day Years [...] do you attend orthodoxy or Never 2018 islam services? Do you [...] Lyons - 03/09/2019 10:53 AM CST baseline KET MAKER documented in this encounter Plan of Treatment Not on filedocumented as of this encounter Visit Diagnoses Not on filedocumented in this encounter Additional Health Concerns Assessment Noted Time PHQ-9 Depression Total Score: 11 05/04/2013 4:05 PM CS T documented as of this encounter Care Teams Healthcare Account Manager Relationship Specialty Start Date End Date Elsewhere, Pcp PCP - General Internal Medicine 07/27/18 documented as of this encounter
--- OUTSIDE RECORDS SUMMARY | 2022-01-08 16:40 | XMS_ITS | Encounter Summary ---
:1955 Author Organization [facility] Address [address] [place] [address] Care Team Providers Name Role Phone Elsewhere, Pcp Primary Care Provider Unavailable Encounter Details Date Type Department Care Team Description 11/26/[address] [facility] Work in [facility].S., M .S.W. [place] [address] [place] [address] [address] [place] [phone] Social History Tobacco Use Types Packs/Day Years [...] or relatives? How often do you attend pentecostal or Never 2018 rastafari services? Do you belong to any clubs or No 02/26/2019 organizations such as pentecostal groups, unions, fraternal or athletic groups, or [...] documented as of this encounter Care Teams Interior Mechanic Relationship Specialty Start Date End Date Elsewhere, Pcp PCP - General Internal Medicine 07/27/18 documented as of this encounter
--- OUTSIDE RECORDS SUMMARY | 2022-01-08 16:40 | XMS_ITS | Encounter Summary ---
:1955 Author Organization [facility] Address [address] [place] [address] Care Team Providers Name Role Phone Elsewhere, Pcp Primary Care Provider Unavailable Encounter Details Date Type Department Care Team Description 03/01/2019 Clinical Communication Department of [facility] [address] [facility] [address] [place] [address] [place], [place] [phone] Social History Tobacco Use Types Packs/Day [...] do you attend taoism or Never 2018 oriental orthodox services? Do [...] Porfirio Villegas M.D. - 03/02/2019 6:33 AM CARD GAME OPERATOR Our bead forming machine operator, Rosemarie Quezada, is already working on this. Thank you GAME OPERATOR Telephone Encounter - Delisa Lyons - 03/01/2019 2:[address] Villegas, Patient had called and said that you were possibly looking at an ablation for her. Is this somethingwe should start to schedule? Thank you. PASS: Call [place] [phone] daytime caregiver for patient - leave vm if no answer GAME OPERATOR documented in this encounter Plan of Treatment Not on filedocumented as of this encounter Visit Diagnoses Not on filedocumented in this encounter Additional Health Concerns Assessment Noted Time PHQ-9 Depression Total Score: 11 05/04/2013 4:05 PM CS T documented as of this encounter Care Teams Head Nurse Relationship Specialty Start Date End Date Elsewhere, Pcp PCP - General Internal Medicine 07/27/18 documented as of this encounter
--- OUTSIDE RECORDS SUMMARY | 2022-01-08 16:40 | XMS_ITS | Encounter Summary ---
:1955 Author Organization [facility] Address [address] [place] [address] Care Team Providers Name Role Phone Elsewhere, Pcp Primary Care Provider Unavailable Encounter Details Date Type Department Care Team Description 01/19/2019 Hospital Encounter Department of [facility], Thrombus Atrial (HCC); Cardiovascular Diseases Porfirio, Flu tter Atrial (HCC) in [facility] nasim Kellogg [address] [facility] [address] [place] [address] [phone] Social History Tobacco Use Types Packs/Day Years [...] or relatives? How often do you attend faith or Never 2018 hoahaoism services? Do you belong to any clubs or No 02/26/2019 organizations such as faith groups, unions, fraternal or athletic groups, or [...] a missing H&P. Health Information Management Services DYEING MACHINE TENDER documented in this encounter Plan of Treatment [...] ventricul ar ejection fraction 55 % with gknw-ev-wxgz variability. RIGHT VENTRICLE: ??Mild right ventricul ar [...] performed at the request of the primary technical services representative. ??Adult probe inserted without difficulty. ??Procedure [...] Sedation Narrator or other pertinent record in [facility] for additional procedure and sedation in formation. [...] ventricular ejection f raction 55 % with lmif-ox-dpgh variability. 5. Tiny pericardial effusion around the [...] ventricular ejection f raction 55 % with nafw-vw-ezue variability. 5. Tiny pericardial effusion around the [...] left ventricular ejection fraction 55 % with yjyo-ri-ebor variability. RIGHT VENTRICLE: Mild right ventricular enlargement. [...] performed at the request of the primary technical services representative. Adult pr obe inserted without difficulty. Procedure [...] documented as of this encounter Care Teams Metal Ceiling Hanger Relationship Specialty Start Date End Date Elsewhere, Pcp PCP - General Internal Medicine 07/27/18 documented as of this encounter
--- OUTSIDE RECORDS SUMMARY | 2022-01-08 16:40 | XMS_ITS | Encounter Summary ---
:1955 Author Organization [facility] Address [address] [place] [address] Care Team Providers Name Role Phone Elsewhere, Pcp Primary Care Provider Unavailable Reason for Visit Appointment Request (Routine) - Closed Specialty Diagnoses / Procedures Referred By Contact Refer red To Contact Cardiovascular Disease Diagnoses Atrial Fibrillation Unspecified Referral ID Status Reason Start Date Expiration Date Visits Requ ested Visits Authorized [id number] Closed 03/09/2019 03/08/2020 1 Encounter Details Date Type Department Care Team Description 04/16/2019 Office Visit Department of [facility], Atrial Fibrill ation Other Persistent (HCC) (Primary Dx); Cardiovascular Medicine Porfirio, Lenka ertensive Heart Disease With Heart Failure (HCC); in [facility] nasim Kellogg Diabetes Mellitus Type 2 Without Complic ation (HCC) [address] [place] [address] [address] [place] [address] [place], [place] [phone] [address] Social History Tobacco Use Types Packs/Day Years [...] do you attend moravian or Never 2018 rastafarian services? Do you belong to any clubs or No 02/26/2019 organizations such as moravian groups, unions, [employer] or athletic groups, or school groups? How [...] Comments Blood Pressure 149/96 04/16/2019 3:55 PM ACADEMIC DIRECTOR Pulse 88 04/16/2019 3:55 PM ACADEMIC DIRECTOR Temperature - - Respiratory Rate - - [...] last met in the clinic in [facility] and at that time we [...] the above and agreement with the plan. EMIC DIRECTOR documented in this encounter Plan of Treatment [...] documented as of this encounter Care Teams Evidence Technician Relationship Specialty Start Date End Date Elsewhere, Pcp PCP - General Internal Medicine 07/27/18 documented as of this encounter
--- OUTSIDE RECORDS SUMMARY | 2022-01-08 16:40 | XMS_ITS | Encounter Summary ---
:1955 Author Organization [facility] Address [address] [place] [address] Care Team Providers Name Role Phone Elsewhere, Pcp Primary Care Provider Unavailable Encounter Details Date Type Department Care Team Description 12/04/2018 Clinical Communication [facility] Work in [facility].S., M [place] [address] [place] [address] [address] [place] [phone] [phone] Social History Tobacco Use Types Packs/Day Years [...] do you attend yarsanism or Never 2018 adventist services? Do you [...] emergency contact. Of note, Ramin's correct contact [facility]: [phone]. Alternative number listed ([phone]) is an invalid number. Ramin resides in [place] and would try to make sure I'm [...] assisting her as able. Ramin resides in [place] and would try to make sure I'm available to attend appointments with her. I explained I was requested to call due to concern from [facility] that Ms. Metcalf may not be fully capable of making an informed decision regarding pacemaker surgery being suggested. Ramin states his mother does not have any formal decision maker in place, and does not have any advanced directive or powerof traffic law attorney forms completed. I provided education on health care advanced directives and mailed the [facility] Advanced Health Care Directive materials to Ramin's home to review with his mother. Ramin states patient is currently living at [facility]. He does not say how long she has been there. He states they have been working on transition to a senior living facility, however they need to be able to handle her medical condition before she can be transferred. I explained that the staff at [facility] could also provide and review an [...] documented as of this encounter Care Teams Msws Relationship Specialty Start Date End Date Elsewhere, Pcp PCP - General Internal Medicine 07/27/18 documented as of this encounter
--- OUTSIDE RECORDS SUMMARY | 2022-01-08 16:40 | XMS_ITS | Encounter Summary ---
:1955 Author Organization [facility] Address [address] [place] [address] Care Team Providers Name Role Phone Elsewhere, Pcp Primary Care Provider Unavailable Encounter Details Date Type Department Care Team Description 12/01/2018 Clinical Communication [facility] Work in [facility].S., M .S.W. [place] [address] [place] [address] [address] [place] [phone] Social History Tobacco Use Types Packs/Day Years [...] do you attend alevism or Never 2018 muslim services? Do you [...] 10:59 AM CDT Call to Ms. Metcalf ([phone]) following up to last week's missed phone appointment. Left message requesting call back to [phone]. [Based on appointment referral and chart notes, [...] documented as of this encounter Care Teams Warehouse Driver Relationship Specialty Start Date End Date Elsewhere, Pcp PCP - General Internal Medicine 07/27/18 documented as of this encounter
--- OUTSIDE RECORDS SUMMARY | 2022-01-08 16:40 | XMS_ITS | Encounter Summary ---
:1955 Author Organization [facility] Address [address] [place] [address] Care Team Providers Name Role Phone Elsewhere, Pcp Primary Care Provider Unavailable Encounter Details Date Type Department Care Team Description 12/11/2018 Hospital Encounter Department of Joseph Verduzco Abnormal Liver Function Test; Laboratory Medicine Becki Caballero, Abnormal Levels Of Other Serum Enzymes and Pathology, Luan Pham. [address], [address] [place] [id number] [phone] Social History Tobacco Use Types Packs/Day Years [...] or relatives? How often do you attend jew or Never 2018 islam services? Do you belong to any clubs or No 02/26/2019 organizations such as jew groups, unions, fraternal or athletic groups, or [...] Test procedure are in the results section. [id number] Routine 12/11/2018 10:44 Abnormal Liver Re sults [...] Transglutaminase), Antibody, IgA (12/11/2018 10:44 AM CDT) [facility] Method Time Signature Tissue <1.2 <4.0 12/11/2018 Transglutaminase Ab, (Negative 10:12 PM CDT IgA, S ) U/mL Specimen Anatomical Collection Method Collection Time Receive d Time (Source) Location / / Volume Laterality Blood 12/11/2018 10:44 12/11/2018 5:00 AM CDT PM CDT Joseph Pham M.D. LAB BLOOD ADD-ON Performing Organization Address City/State/ZIP Code Phon e Number [facility] [address] [place], [place] [address] [facility] (ABNORMAL) CMP (Comprehensive [...] >=60 12/11/2018 Black/ mL/min/BSA 12:17 PM CDT Stateless Comment: ----ADDITIONAL INFORMATION---- Estimated GFR calculated using [...] M.D. LAB BLOOD ADD-ON Performing Organization Address City/[facility] Phon e Number [facility] - [address] [place] [address] 05 [facility] Ceruloplasmin (12/11/2018 10:44 AM CDT) P athologist Signature Ceruloplasmin, 31.7 20.0 - 51.0 12/11/2018 S mg/dL 12:35 PM CDT Specimen Anatomical Collection Method Collection Time Receive d Time (Source) Location / / Volume Laterality Blood (Blood, 12/11/2018 10:44 12/11/2018 Venous) AM CDT 11:57 AM CDT Joseph Pham M.D. LAB BLOOD ADD-ON Performing Organization Address [facility] Phon e Number [facility] - [address] [address] [facility] (ABNORMAL) MELINDA (Antinuclear Antibodies) (12/11/2018 10:44 AM [...] M.D. LAB BLOOD ADD-ON Performing Organization Address City/[facility]/ZIP Code Phon e Number [facility] [address] [place] [address] [facility] Hepatitis A IgG Ab, [...] - B LOOD ORDERABLES Performing Organization Address [facility] Phon e Number [address] [place] [address] [facility] Smooth Muscle Antibodies (12/11/2018 10:44 AM CDT) athologist [facility] Smooth Muscle Negative Negative 12/12/2018 Antibody, S 2:49 PM CDT Comment: ----ADDITIONAL INFORMATION---- This test was developed and its performa nce characteristics determined by [facility] in a manner consistent with CLIA requirements. This test has not been cleared or approved by the [place] d and Drug Administration. Specimen Anatomical Collection Method Collection Time Receive d Time (Source) Location / / Volume Laterality Blood (Blood, 12/11/2018 10:44 12/11/2018 2:40 Venous) AM CDT PM CDT Joseph Pham M.D. LAB BLOOD ADD-ON Performing Organization Address City/[facility] Phon e Number [address] [place] [address] [facility] HCV Ab Scrn w/Reflex to HCV PCR, Serum (12/11/2018 10:44 AM CDT) athologist [facility] HCV Ab Screen, Negative Negative 12/11/2018 S 3:47 PM CDT Comment: Tiyacq-rb-numdiu ratio is <1.00 . Specimen Anatomical Collection Method Collection Time Receive d Time (Source) Location / / Volume Laterality Blood (Blood, 12/11/2018 10:44 12/11/2018 2:30 Venous) AM CDT PM CDT Jsoeph Tirado Becki Pham M.D. LAB MICROBIOLOGY - B LOOD ORDERABLES Performing Organization Address [facility] Phon e Number [address] [place] [address] [facility] HBc Total Ab, Serum [...] - B LOOD ORDERABLES Performing Organization Address [facility] Phon e Number [address] [place] [address] [facility] Hepatitis B Surface Antigen (12/11/2018 10:44 AM CDT) P athologist Signature HBs Antigen, S Negative Negative 12/11/2018 3:29 PM CDT Specimen Anatomical Collection Method Collection Time Receive d Time (Source) Location / / Volume Laterality Blood (Blood, 12/11/2018 10:44 12/11/2018 2:30 Venous) AM CDT PM CDT Joseph Candida Pham M.D. LAB MICROBIOLOGY - B LOOD ORDERABLES Performing Organization Address [facility] Phon e Number [address] [place] [address] [facility] Immunoglobulin M (IgM) (12/11/2018 10:44 AM CDT) [facility] Method Time Signature Immunoglobulin M 74 37 - 286 12/11/2018 (IgM), S mg/dL 5:00 PM CDT Specimen Anatomical Collection Method Collection Time Receive d Time (Source) Location / / Volume Laterality Blood (Blood, 12/11/2018 10:44 12/11/2018 2:37 Venous) AM CDT PM CDT Joseph Pham M.D. LAB BLOOD ADD-ON Performing Organization Address [facility] Code Phon e Number [address] [place] [address] [facility] Immunoglobulin G (IgG) (12/11/2018 10:44 AM CDT) Patholo gist Method Time Signature Immunoglobulin G 1190 767 - 1590 12/11/2018 (IgG), S mg/dL 4:59 PM CDT Specimen Anatomical Collection Method Collection Time Receive d Time (Source) Location / / Volume Laterality Blood (Blood, 12/11/2018 10:44 12/11/2018 2:37 Venous) AM CDT PM CDT Joseph Pham M.D. LAB BLOOD ADD-ON Performing Organization Address [facility] Phon e Number [address] [place] [address] [facility] HBs Antibody, Serum (12/11/2018 [...] - B LOOD ORDERABLES Performing Organization Address [facility] Phon e Number [address] [place] [address] [facility] (ABNORMAL) Celiac Disease Serology [place] (12/11/2018 10:44 AM CDT) Component Value Ref [...] M.D. LAB BLOOD ADD-ON Performing Organization Address [facility] Phon e Number [address] [place] [address] [facility] Jkbuw-0-Bmrpvaloajr Phenotype (12/11/2018 10:44 AM CDT) P athologist Signature Snocy-5-Cmrtulp 131 100 - 190 12/11/2018 psin, S mg/dL 3:46 PM CDT Aosxj-5-Mkurmrd MM bands 12/14/2018 psin Phenotype 3:10 PM CDT Comment: A single M isoform is detected. In the c ontext of a normal jwfls-1-sloeistjsqr concentration, this is consistent with an MM phenotype. Specimen Anatomical Collection Method Collection Time Receive d Time (Source) Location / / Volume Laterality Blood (Blood, 12/11/2018 10:44 12/11/2018 2:37 Venous) AM CDT PM CDT Joseph Pham M.D. LAB BLOOD ADD-ON Performing Organization Address City/[facility] Phon e Number [address] [place] [address] [facility] Mitochondrial Antibodies (M2) (12/11/2018 [...] M.D. LAB BLOOD ADD-ON Performing Organization Address City/[facility]/ZIP Code Phon e Number [facility] [address] [place] [address] [facility] Iron and Total Iron-Binding [...] City/State/ZIP Code Phon e Number [facility] - [address] [place] [address] [facility] Ferritin (12/11/2018 10:44 AM CDT) athologist [facility] Ferritin, S 63 11 - 307 12/11/2018 mcg/L 12:15 PM CDT Specimen Anatomical Collection Method Collection Time Receive d Time (Source) Location / / Volume Laterality Blood (Blood, 12/11/2018 10:44 12/11/2018 Venous) AM CDT 11:05 AM CDT Joseph Pham M.D. LAB BLOOD ADD-ON Performing Organization Address City/[facility]/ZIP Code Phon e Number [facility] - [address] [place] [address] [facility] CBC without Differential (12/11/2018 10:44 AM CDT) [...] City/State/ZIP Code Phon e Number [facility] - [address] documented in this encounter Visit Diagnoses Diagnosis Abnormal Liver Function Test Abnormal Levels Of Other Serum Enzymes documented in this encounter Additional Health Concerns Assessment Noted Time PHQ-9 Depression Total Score: 11 05/04/2013 4:05 PM CS T documented as of this encounter Care Teams Clipper Machine Operator Relationship Specialty Start Date End Date Elsewhere, Pcp PCP - General Internal Medicine 07/27/18 documented as of this encounter
--- OUTSIDE RECORDS SUMMARY | 2022-01-08 16:40 | XMS_ITS | Encounter Summary ---
:1955 Author Organization [facility] Address [address] [place] [address] Care Team Providers Name Role Phone Elsewhere, Pcp Primary Care Provider Unavailable Reason for Referral MRI/CAT/PET Scan (Routine) - Closed Specialty Diagnoses / Procedures Referred By Contact Refer red To Contact Radiology Diagnoses Atrial Fibrillation Unspecified [facility] Procedures CT Cardiac Angiogram Pulmonary Veins with IV M.D. [address] [place] [address] Referral ID Status Reason Start Date Expiration Date Visits Requ ested Visits Authorized [id number] Closed 03/04/2019 03/03/2020 1 1 CTOR OF EDUCATION AND TRAINING Outpatient (Routine) - Closed Specialty Diagnoses / Procedures Referred By Contact Refer red To Contact Diagnoses Atrial Fibrillation Unspecified [facility] Procedures ECG 12 Lead M.D. [address] [place] [address] Referral ID Status Reason Start Date Expiration Date Visits Requ ested Visits Authorized [id number] Closed 03/04/2019 03/03/2020 1 1 [employer]OR OF EDUCATION [employer] TRAINING Reason for Visit Reason Onset Date Comments schedule PVI ablation with Dr. Chapman 03/04/20 19 Encounter Details Date Type Department Care Team Description 03/04/2019 Clinical Department of Damien, schedule PVI Communication Cardiovascular opal [address] Dr[facility] [address] [facility] Marie [address] [place] [phone] Social History Tobacco Use Types Packs/Day Years [...] do you attend yarsani or Never 2018 yarsanism services? Do you [...] for me to proceed? Thank you, Delisa CTOR OF EDUCATION AND TRAINING Telephone Encounter - Rosemarie Quezada R.N. - 03/04/2019 11:32 AM DIRECTOR OF EDUCATION AND TRAINING PATIENT INFORMATION- This was coordinated with Sierra [...] 06/29/2018, ECG 02/26/2019 and 11/25/2018 shows AF, echo(IMCHAEL)01/19/2019 EF 55%, no clot- had clot in [...] with instructions. All questions were answered. [facility] Service Line [facility] Backup Line PLAN Disposition/Recommendation: protocol orders Education: patient/caller able to teach back Caller agreeable to plan of care: yes The following references were used: patient education resources: title Preparing for Your Heart Rhythm Procedure [id number] and [facility] protocols: title [facility] [id number] and Medication Management for Patients Undergoing Heart Ablation and LEft Atrial Appendage Occlusion [id number] CTOR OF EDUCATION AND TRAINING documented in this encounter Plan of Treatment Not on filedocumented as of this encounter Results ECG 12 Lead (04/16/2019 10:49 AM DIRECTOR OF EDUCATION AND TRAINING) [facility] Method Time Signature Ventricular 91 BPM MUSE Rate ECG/Min QRSD Interval 92 ms MUSE QT Interval 360 ms MUSE QTC Interval 442 ms MUSE R [place] 91 degrees MUSE T Wave [place] -80 degrees MUSE CODED Atrial MUSE DIAGNOSIS fibrillation Specimen Anatomical Collection Method Collection Time Receive d Time (Source) Location / / Volume Laterality 04/16/2019 10:49 04/16/2019 AM DIRECTOR OF EDUCATION AND TRAINING 10:55 AM DIRECTOR OF EDUCATION AND TRAINING Impressions MUSE - 04/16/2019 10:55 AM DIRECTOR OF EDUCATION AND TRAINING Atrial fibrillation Rightward axis ST and T [...] Pulmonary Veins with IV (04/16/2019 10:12 AM DIRECTOR OF EDUCATION AND TRAINING) Anatomical Region Laterality Modality Cardiac, Cardiovascular RST LOS, N/A Compute d Tomography, Computed Thoracic ARZ LOS, Cardiovascular FLA Godwin ography LOS Specimen (Source) Anatomical Collection Method Collection Time Re ceived Time Location / / Volume Laterality 04/16/2019 10:05 AM DIRECTOR OF EDUCATION AND TRAINING Impressions 04/16/2019 10:21 AM DIRECTOR OF EDUCATION AND TRAINING 1. Normal variant pulmonary vein anatomy with [...] infectious or inflammatory. Narrative 04/16/2019 10:21 AM DIRECTOR OF EDUCATION AND TRAINING EXAM: ??CT CARDIAC ANGIOGRAM PULMONARY VEINS WITH IV CONTRAST COMPARISON: ??[facility] CT chest witho ut intravenous contrast 02/05/2012. [...] T8, unchanged. C holecystectomy clips evident on needle loom operator helper topogram. Procedure Note Nikunj Bolton M.D. - 04/16/2019Formattin g of this note might be different from the original. EXAM: CT CARDIAC ANGIOGRAM PULMONARY VEI NS WITH IV CONTRAST COMPARISON: [facility] CT chest without intravenous contrast 02/05/2012. FINDINGS: [...] T8, unchanged. C holecystectomy clips evident on needle loom operator helper topogram. IMPRESSION: 1. Normal variant pulmonary vein [...] documented as of this encounter Care Teams Form Building Supervisor Relationship Specialty Start Date End Date Elsewhere, Pcp PCP - General Internal Medicine 07/27/18 documented as of this encounter
--- OUTSIDE RECORDS SUMMARY | 2022-01-08 16:40 | XMS_ITS | Encounter Summary ---
:1955 Author Organization [facility] Address [address] [place] [address] Care Team Providers Name Role Phone Elsewhere, Pcp Primary Care Provider Unavailable Reason for Visit Outpatient (Routine) - Closed Specialty Diagnoses / Referred By Referred To Cont act Procedures Contact Gastroenterology and Diagnoses Abnormal Liver Function Test [facility] Hepatology Bess Monroy [address] [place] [address] Referral ID Status Reason Start Date Expiration Date Visits Requ ested Visits Authorized [id number] Closed 10/21/2018 10/21/2019 1 1 Encounter Details Date Type Department Care Team Description 12/11/2018 Comprehensive Visit Division of Lele Villegas M.D. [address] [place] [phone] Abnormal Liver Function Test; Gastroenterology in Joseph Verduzco M.B.B.S., MCarlos [address] [place] [address] Abnormal Levels Of Other Serum Enzymes [place], [place] [address] [place] [phone] Social History Tobacco Use Types Packs/Day Years [...] do you attend restorationist or Never 2018 taoist services? Do you [...] past. She was recently admitted to the [facility] in June 2012 showed atrial flutter. She was then transferred to [facility] for further management. Echocardiogram in on June [...] for shortness of breath. 07/06/18 Bella Danielson P.A.-Ana., M.S. aspirin [address] tablet Take [...] file Gets together: Not on file Attends taoist service: Not on file Active member of [...] Dr. Verduzco's note. CT CT Job ID: [id number] documented in this encounter Plan of Treatment [...] >=60 12/11/2018 Black/ mL/min/BSA 12:17 PM CDT Nigerien Comment: ----ADDITIONAL INFORMATION---- Estimated GFR calculated using [...] M.D. LAB BLOOD ADD-ON Performing Organization Address [facility]/ZIP Code Phon e Number [facility] - [address] [place] [address] 05 [facility] Ceruloplasmin (12/11/2018 10:44 AM CDT) P athologist Signature Ceruloplasmin, 31.7 20.0 - 51.0 12/11/2018 S mg/dL 12:35 PM CDT Specimen Anatomical Collection Method Collection Time Receive d Time (Source) Location / / Volume Laterality Blood (Blood, 12/11/2018 10:44 12/11/2018 Venous) AM CDT 11:57 AM CDT Joseph Pham M.D. LAB BLOOD ADD-ON Performing Organization Address City/[facility] Code Phon e Number [facility] - [address] [place] [address] [facility] (ABNORMAL) MELINDA (Antinuclear Antibodies) (12/11/2018 10:44 [...] M.D. LAB BLOOD ADD-ON Performing Organization Address City/[facility]/ZIP Code Phon e Number [facility] [address] [place], [place] [address] [facility] Hepatitis A [...] - B LOOD ORDERABLES Performing Organization Address [facility] Phon e Number [address] [place] [address] 05 [facility] Smooth Muscle Antibodies (12/11/2018 10:44 AM CDT) athologist Signature Smooth Muscle Negative Negative 12/12/2018 Antibody, S 2:49 PM CDT Comment: ----ADDITIONAL INFORMATION---- This test was developed and its performa nce characteristics determined by [facility] in a manner consistent with CLIA requirements. This test has not been cleared or approved by the [place] d and Drug Administration. Specimen Anatomical Collection Method Collection Time Receive d Time (Source) Location / / Volume Laterality Blood (Blood, 12/11/2018 10:44 12/11/2018 2:40 Venous) AM CDT PM CDT Joseph Pham M.D. LAB BLOOD ADD-ON Performing Organization Address [facility] Phon e Number [address] [place] [address] [facility] HCV Ab Scrn w/Reflex to HCV PCR, Serum (12/11/2018 10:44 AM CDT) P athologist Signature HCV Ab Screen, Negative Negative 12/11/2018 S 3:47 PM CDT Comment: Skwdoa-gb-mqugcv ratio is <1.00 . Specimen Anatomical Collection Method Collection Time Receive d Time (Source) Location / / Volume Laterality Blood (Blood, 12/11/2018 10:44 12/11/2018 2:30 Venous) AM CDT PM CDT Joseph Pham M.D. LAB MICROBIOLOGY - B LOOD ORDERABLES Performing Organization Address City/State/ZIP Code Phon e Number [facility] [address] [place] [address] [facility] HBc Total Ab, Serum (12/11/2018 10:44 AM CDT) athologist Signature HBc Total Ab, Negative Negative 12/11/2018 S 3:47 PM CDT Specimen Anatomical Collection Method Collection Time Receive d Time (Source) Location / / Volume Laterality Blood (Blood, 12/11/2018 10:44 12/11/2018 2:30 Venous) AM CDT PM CDT Joseph Pham M.D. LAB MICROBIOLOGY - B LOOD ORDERABLES Performing Organization Address [facility]/ZIP Code Phon e Number [address] [place] [address] 05 [facility] Hepatitis B Surface Antigen (12/11/2018 10:44 AM CDT) athologist Signature HBs Antigen, S Negative Negative 12/11/2018 3:29 PM CDT Specimen Anatomical Collection Method Collection Time Receive d Time (Source) Location / / Volume Laterality Blood (Blood, 12/11/2018 10:44 12/11/2018 2:30 Venous) AM CDT PM CDT Joseph Pham M.D. LAB MICROBIOLOGY - B LOOD ORDERABLES Performing Organization Address City/[facility]/ZIP Code Phon e Number [address] [place], [place] [address] [facility] Immunoglobulin M (IgM) (12/11/2018 10:44 AM CDT) [facility] Method Time Signature Immunoglobulin M 74 37 - 286 12/11/2018 (IgM), S mg/dL 5:00 PM CDT Specimen Anatomical Collection Method Collection Time Receive d Time (Source) Location / / Volume Laterality Blood (Blood, 12/11/2018 10:44 12/11/2018 2:37 Venous) AM CDT PM CDT Joseph Pham M.D. LAB BLOOD ADD-ON Performing Organization Address City/[facility]/ZIP Code Phon e Number [address] LORA Gonzales [facility] 05 [facility] Immunoglobulin G (IgG) (12/11/2018 10:44 AM CDT) Patholo gist Method Time Signature Immunoglobulin G 1190 767 - 1590 12/11/2018 (IgG), S mg/dL 4:59 PM CDT Specimen Anatomical Collection Method Collection Time Receive d Time (Source) Location / / Volume Laterality Blood (Blood, 12/11/2018 10:44 12/11/2018 2:37 Venous) AM CDT PM CDT Joseph Pham M.D. LAB BLOOD ADD-ON Performing Organization Address [facility] Phon e Number [facility] [address] EDDIE Velasco [facility] 05 [facility] HBs Antibody, Serum (12/11/2018 10:44 AM [...] - B LOOD ORDERABLES Performing Organization Address [facility] Phon e Number [facility] [address] EDDIE Velasco [facility] 05 [facility] (ABNORMAL) Celiac Disease Serology Percy (12/11/2018 10:44 AM CDT) Component Value Ref [...] M.D. LAB BLOOD ADD-ON Performing Organization Address [facility] Phon e Number [address] [place] [address] 05 [facility] Mopns-4-Arbeqwobcit Phenotype (12/11/2018 10:44 AM CDT) P athologist Signature Fmlqo-9-Qfsfosh 131 100 - 190 12/11/2018 psin, S mg/dL 3:46 PM CDT Fyoyk-2-Vbpaybw MM bands 12/14/2018 psin Phenotype 3:10 PM CDT Comment: A single M isoform is detected. In the c ontext of a normal mllet-4-uyjhxtgrvwk concentration, this is consistent with an MM phenotype. Specimen Anatomical Collection Method Collection Time Receive d Time (Source) Location / / Volume Laterality Blood (Blood, 12/11/2018 10:44 12/11/2018 2:37 Venous) AM CDT PM CDT Joseph Pham M.D. LAB BLOOD ADD-ON Performing Organization Address [facility] Phon e Number [address] [place] [address] [facility] Mitochondrial Antibodies (M2) (12/11/2018 10:44 AM CDT) Analysis Performed At Patho logist Time Signature Mitochondrial Ab, <0.1 <0.1 12/11/2018 M2, S (Negative) 5:22 PM CDT U Specimen Anatomical Collection Method Collection Time Receive d Time (Source) Location / / Volume Laterality Blood (Blood, 12/11/2018 10:44 12/11/2018 1:32 Venous) AM CDT PM CDT Ma Thanda A Verduzco M.B.B.S., M.D. LAB BLOOD ADD-ON Performing Organization Address City/[facility]/ZIP Code Phon e Number [facility] [address] [place] [address] 05 [facility] Iron and Total Iron-Binding [...] M.D. LAB BLOOD ADD-ON Performing Organization Address City/[facility]/ZIP Code Phon e Number [facility] - [address] [place] [address] 05 [facility] Ferritin (12/11/2018 10:44 AM CDT) athologist Signature Ferritin, S 63 11 - 307 12/11/2018 mcg/L 12:15 PM CDT Specimen Anatomical Collection Method Collection Time Receive d Time (Source) Location / / Volume Laterality Blood (Blood, 12/11/2018 10:44 12/11/2018 Venous) AM CDT 11:05 AM CDT Joseph Pham M.D. LAB BLOOD ADD-ON Performing Organization Address City/[facility] Code Phon e Number [facility] - [address] [place] [address] [facility] CBC without Differential (12/11/2018 10:44 AM [...] Venous) AM CDT 11:05 AM CDT Joseph Phma M.D. LAB BLOOD ADD-ON Performing Organization Address City/State/ZIP Code Phon e Number [facility] - [address] documented in this encounter Visit Diagnoses Diagnosis Abnormal Liver Function Test Abnormal Levels Of Other Serum Enzymes documented in this encounter Additional Health Concerns Assessment Noted Time PHQ-9 Depression Total Score: 11 05/04/2013 4:05 PM CS T documented as of this encounter Care Teams Print Cutter Relationship Specialty Start Date End Date Elsewhere, Pcp PCP - General Internal Medicine 07/27/18 documented as of this encounter
--- OUTSIDE RECORDS SUMMARY | 2022-01-08 16:40 | XMS_ITS | Encounter Summary ---
:1955 Author Organization [facility] Address [address] [place] [address] Care Team Providers Name Role Phone Elsewhere, Pcp Primary Care Provider Unavailable Reason for Referral MRI/CAT/PET Scan (Routine) - Closed Specialty Diagnoses / Procedures Referred By Contact Refer red To Contact Radiology Diagnoses Atrial Fibrillation Unspecified [facility] Procedures CT Cardiac Angiogram Pulmonary Veins with IV M.D. [address] [place] [address] Referral ID Status Reason Start Date Expiration Date Visits Requ ested Visits Authorized [id number] Closed 03/04/2019 03/03/2020 1 1 N COMMODITY MANAGER Reason for Visit MRI/CAT/PET Scan (Routine) - Closed Specialty Diagnoses / Procedures Referred By Contact Refer red To Contact Radiology Diagnoses Atrial Fibrillation Unspecified [facility] Procedures CT Cardiac Angiogram Pulmonary Veins with IV M.D. [address] [place] [address] Referral ID Status Reason Start Date Expiration Date Visits Requ ested Visits Authorized [id number] Closed 03/04/2019 03/03/2020 1 1 Encounter Details Date Type Department Care Team Description 04/16/2019 Hospital Encounter Department of Siontis, Atrial F ibrillation Radiology, Garett Monroy, ([facility]) Building, in M.D. [place], [place] [address] [facility] [address] [place] [address] [phone] Social History Tobacco Use Types Packs/Day Years [...] do you attend episcopalian or Never 2018 quaker services? Do you [...] context of radiology care priorto contrast/medication administration. N COMMODITY MANAGER documented in this encounter Plan of [...] ults for this ANGIOGRAM (most inpatients AM GRAIN COMMODITY MANAGER (HCC) procedure a re in PULMONARY VEINS and all the results WITH IV CONTRAST outpatients) section. CREATININE, POCT, Routine 04/16/2019 9:39 Results for this B AM GRAIN COMMODITY MANAGER procedure are i n the results section. CREATININE, POCT, Routine 04/16/2019 9:39 Results for this B AM GRAIN COMMODITY MANAGER procedure are i n the results section. documented in this encounter Results CT Cardiac Angiogram Pulmonary Veins with IV (04/16/2019 10:12 AM GRAIN COMMODITY MANAGER) Anatomical Region Laterality Modality Cardiac, Cardiovascular RST LOS, N/A Compute d Tomography, Computed Thoracic ARZ LOS, Cardiovascular FLA Godwin ography LOS Specimen (Source) Anatomical Collection Method Collection Time Re ceived Time Location / / Volume Laterality 04/16/2019 10:05 AM GRAIN COMMODITY MANAGER Impressions 04/16/2019 10:21 AM GRAIN COMMODITY MANAGER 1. Normal variant pulmonary vein anatomy with [...] infectious or inflammatory. Narrative 04/16/2019 10:21 AM GRAIN COMMODITY MANAGER EXAM: ??CT CARDIAC ANGIOGRAM PULMONARY VEINS WITH IV CONTRAST COMPARISON: ??[facility] CT chest witho ut intravenous contrast 02/05/2012. [...] T8, unchanged. C holecystectomy clips evident on diamond powder mixer topogram. Procedure Note Nikunj Bolton M.D. - 04/16/2019Formattin g of this note might be different from the original. EXAM: CT CARDIAC ANGIOGRAM PULMONARY VEI NS WITH IV CONTRAST COMPARISON: [facility] CT chest without intravenous contrast 02/05/2012. FINDINGS: [...] T8, unchanged. C holecystectomy clips evident on diamond powder mixer topogram. IMPRESSION: 1. Normal variant pulmonary vein [...] CT PROCEDURES Creatinine, POCT (04/16/2019 9:39 AM GRAIN COMMODITY MANAGER) P athologist Signature Creatinine, 0.8 0.6 - 1.0 04/16/2019 PCDT POCT, B mg/dL 12:52 PM GRAIN COMMODITY MANAGER Comment: ----ADDITIONAL INFORMATION---- Performed at the Point of Care Specimen Anatomical Collection Method Collection Time Receive d Time (Source) Location / / Volume Laterality Blood 04/16/2019 9:39 AM 0 GRAIN COMMODITY MANAGER 12:53 PM GRAIN COMMODITY MANAGER Unknown Provider LAB POCT ORDERABLES - DEVICE Performing Organization Address [facility]/ZIP Code Phon e Number POC TURNER PERFORMING [address] [place] [address] LABS PCDT [facility] [place] [address] [place] [facility] [address] Creatinine, POCT (04/16/2019 9:39 AM GRAIN COMMODITY MANAGER) P athologist Signature eGFR-Black/Afri >90 >=60 04/16/2019 PCMO can Uzbek, mL/min/BSA 12:53 PM GRAIN COMMODITY MANAGER POCT Comment: ----ADDITIONAL INFORMATION---- Estimated GFR calculated using the 2009 CKD_EPI creatinine equation. eGFR Non-Black/, 79 >=60 mL/min/BSA 04/16/2019 12:53 PM GRAIN COMMODITY MANAGER PCMO POCT Comment: ----ADDITIONAL INFORMATION---- Estimated GFR calculated using the 2009 CKD_EPI creatinine equation. Specimen Anatomical Collection Method Collection Time Receive d Time (Source) Location / / Volume Laterality Blood 04/16/2019 9:39 AM 0 GRAIN COMMODITY MANAGER 12:53 PM GRAIN COMMODITY MANAGER Unknown Provider LAB POCT ORDERABLES - DEVICE Performing Organization Address [facility] Phon e Number POC RST CONGREGATIONAL [address] [place] [address] OUTPATIENT LABS PCMO [facility] [place] [address] [place] [facility] [address] documented in this encounter Visit Diagnoses Diagnosis Atrial Fibrillation Unspecified documented in this encounter Administered Medications Inactive Administered Medications - up to 3 most recent administrations Medication Order MAR Action Action Date Dose Rate Site iohexol 350 mg iodine/mL solution Given 04/16/2019 9:51 AM GRAIN COMMODITY MANAGER 1 40 mL 1-200 mL (OMNIPAQUE) 1-200 mL, intravenous, Once in imaging, contrast, Starting on Fri04/16/19 at 0920, For 1 dose, Imaging Protocol Orders, Dose per Radiant Medication Guidelines sodium chloride (PF) 0.9 % injection 1-1 00 mL Given 04/16/2019 9:51 AM GRAIN COMMODITY MANAGER 10 mL 1-100 mL, intravenous, Once, On Fri04/16/19 at 0930, For 1 dose, Imaging Protocol Orders documented in this encounter Additional Health Concerns Assessment Noted Time PHQ-9 Depression Total Score: 05/04/2013 4:05 PM CS T documented as of this encounter Care Teams Amplifier Mechanic Relationship Specialty Start Date End Date Elsewhere, Pcp PCP - General Internal Medicine 07/27/18 documented as of this encounter
--- OUTSIDE RECORDS SUMMARY | 2022-01-08 16:40 | XMS_ITS | Encounter Summary ---
:1955 Author Organization [facility] Address [address] [place] [address] Care Team Providers Name Role Phone Elsewhere, Pcp Primary Care Provider Unavailable Encounter Details Date Type Department Care Team Description 11/25/2018 Hospital Encounter Department of Siontis, Abnormal Liver Laboratory Medicine [facility]en Mon[facility] [address] [place], [place] [address] [facility] [address] [place], [place] [phone] [address] (Work) [phone] Social History Tobacco Use Types Packs/Day Years [...] do you attend hoahaoism or Never 2018 roman catholic services? Do [...] >=60 11/25/2018 Black/ mL/min/BSA 12:49 PM CDT Citizen Of [place] Comment: ----ADDITIONAL INFORMATION---- Estimated GFR calculated using [...] City/State/ZIP Code Phon e Number [facility] - [address] [place] [address] 05 [facility] (ABNORMAL) Hepatic Function Panel (11/25/2018 11:07 AM CDT) [facility] gist Method Time Signature Bilirubin, Total, S [...] M.D. LAB BLOOD ADD-ON Performing Organization Address [facility] Phon e Number [facility] - [address] (ABNORMAL) PT (Prothrombin Time) with INR (11/25/2018 11:07 AM CDT) [facility] [employer] Method Time Signature Prothrombin 38.4 (H) 9.4 [...] M.D. LAB BLOOD ADD-ON Performing Organization Address [facility] Phon e Number [facility] - [address] (ABNORMAL) CBC without Differential (11/25/2018 11:07 AM CDT) [facility] [employer] Method Time Signature Hemoglobin 14.8 11.6 - [...] M.D. LAB BLOOD ADD-ON Performing Organization Address City/State/[facility] Code Phon e Number [facility] - [address] [place] [address] 05 [facility] documented in this encounter Visit Diagnoses Diagnosis Abnormal Liver Function Test documented in this encounter Additional Health Concerns Assessment Noted Time PHQ-9 Depression Total Score: 11 05/04/2013 4:05 PM CS T documented as of this encounter Care Teams Roving Sizer Relationship Specialty Start Date End Date Elsewhere, Pcp PCP - General Internal Medicine 07/27/18 documented as of this encounter
--- OUTSIDE RECORDS SUMMARY | 2022-01-08 16:40 | XMS_ITS | Encounter Summary ---
:1955 Author Organization [facility] Address [address] [place] [address] Care Team Providers Name Role Phone Elsewhere, Pcp Primary Care Provider Unavailable Reason for Referral Outpatient (Routine) - Closed Specialty Diagnoses / Procedures Referred By Contact Refer red To Contact Diagnoses Flutter Atrial [facility]HCC[facility] 12 Lead M.DEdilma [address] [place] [address] Referral ID Status Reason Start Date Expiration Date Visits Requ ested Visits Authorized [id number] Closed 01/21/2019 01/21/2020 1 1 Reason for Visit Outpatient (Routine) - Closed Specialty Diagnoses / Procedures Referred By Contact Refer red To Contact [facility] Bess Monroy [address] [place] [address] Referral ID Status Reason Start Date Expiration Date Visits Requ ested Visits Authorized [id number] Closed 11/25/2018 11/25/2019 1 1 Encounter Details Date Type Department Care Team Description 01/20/2019 Office Visit Department of Nelly Flutter Atrial (HCC) Cardiovascular Medicine Porfirio (Pr imary Dx) in Clarissa Velasco M.D. [address] [facility] [address] [place] [address] [place], [place] [phone] [address] Social History Tobacco Use Types Packs/Day Years [...] do you attend methodist or Never 2018 scientologist services? Do you [...] engage her son, Yaya, who lives in [place]. Please see social media content manager documentation dated November 24, 2018. Unfortunately, Yyaa was not able to make it to the appointment today. At this point, it appears that she is her own decision-maker without anyone formally appointed as a power of employment law attorney. However, she identifies her son, Yaya, [...] Results ECG 12 Lead (02/26/2019 1:32 PM SYSTEMS SECURITY CONSULTANT) [facility] Method Time Signature Ventricular 88 BPM MUSE Rate ECG/Min QRSD Interval 102 ms MUSE QT Interval 358 ms MUSE QTC Interval 433 ms MUSE R [place] 88 degrees MUSE T Wave [place] -89 degrees MUSE CODED Atrial MUSE DIAGNOSIS fibrillation CODED Atrial MUSE DIAGNOSIS fibrillation CODED Atrial flutter MUSE DIAGNOSIS Specimen Anatomical Collection Method Collection Time Receive d Time (Source) Location / / Volume Laterality 02/26/2019 1:32 PM 9 1:46 SYSTEMS SECURITY CONSULTANT PM SYSTEMS SECURITY CONSULTANT Impressions MUSE - 02/26/2019 1:46 PM SYSTEMS SECURITY CONSULTANT Atrial fibrillation ST and T wave abnormality, [...] documented as of this encounter Care Teams Steel Grinder Relationship Specialty Start Date End Date Elsewhere, Pcp PCP - General Internal Medicine 07/27/18 documented as of this encounter
--- OUTSIDE RECORDS SUMMARY | 2022-01-08 16:41 | XMS_ITS | Encounter Summary ---
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 Do you belong to any clubs or No 02/26/2019 organizations such as hinduism groups, unions, fraEcoIntense or athletic groups, or school groups? How [...] emptying veloci ty 31 cm/sec. 3. No phoff-bf-vtzh shunt at atrial leve l at rest [...] saline in jection(s) performed during sedation. ??No zqzlx-ey-lbfn shunt at atrial level at rest or with Va lsalva release. ??The left atrial appendage thrombus is no longer seen. A tiny mobile echodensit y is now seen which has similar tissue density to the surrounding myocardium. Differential inc ludes tiny organized thrombus vs normal left atrial appendage trabeculation. ??No pericardia l effusion. ??PROCEDURE ??Transesophageal echocardiogram performed at the request of the primary valet service attendant. ??Adult probe inserted without difficulty. ??Procedure performed [...] Sedation Narrator or other pertinent record in [employer] for addit ional procedure and sedation information. [...] emptying veloci ty 31 cm/sec. 3. No bburq-si-nnxo shunt at atrial leve l at rest [...] saline inje ction(s) performed during sedation. No kopgo-ds-nkix shunt at atrial level at rest or with Va lsalva release. The left atrial appendage thrombus is no longer seen. A tiny mobile echodensit y is now seen which has similar tissue density to the surrounding myocardium. Differential inc ludes tiny organized thrombus vs normal left atrial appendage trabeculation. No pericardial effusion. PROCEDURE Transesophageal echocardiogram performed at the request of the primary valet service attendant. Adult probe inserted without difficulty. Procedure performed [...] Sedation Narrator or other pertinent record in [facility] for addit ional procedure and [...] documented as of this encounter Care Teams Electronic Maintenance Supervisor Relationship Specialty Start Date End Date Elsewhere, Pcp PCP - General Internal Medicine 07/27/18 documented as of this encounter
--- OUTSIDE RECORDS SUMMARY | 2022-01-08 16:41 | XMS_ITS | Encounter Summary ---
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) [facility] Cardiovascular Disease Luan Monroy [address] [place] [address] Referral ID Status Reason Start Date Expiration Date Visits Requ ested Visits Authorized [id number] Closed 09/14/2018 09/14/2019 1 1 Encounter Details Date Type Department Care Team Description 10/21/2018 Comprehensive Visit Department of Javier Kaiser Acute O n Chronic Combined Systolic (Congestive) And Diastolic (Congestive) Heart Failure (HCC) (Primary Dx); Cardiovascular Bess Salinas Apnea Sleep Obstructive; Medicine in 200 [facility] Flutter Atrial (HCC); [facility] Hypertensive Heart Disease With Heart Fa ilure (HCC); [address] [place] [address], Thrombus Atrial (HCC); [facility] Diabetes Melli tus Type 2 Without Complication (HCC); [id number] Hyperlipidemia On Treatment; [phone] Other Dyspnea (Work) Social History Tobacco Use [...] do you attend amish or Never 2018 spiritism services? Do you [...] plans with Dr. Degroot. I agree with thejelly in his note dated October 21, 2018. [...] file Gets together: Not on file Attends spiritism service: Not on file Active member of [...] evaluated locally and she was admitted to [facility] June 22 for AFib with RVR and [...] June. Patient was here at [facility] for an additional opinion when she [...] file Gets together: Not on file Attends spiritism service: Not on file Active member of [...] motion abnormalities, estimated ejection fraction 55% with daca-qk-cdhb variability. 3. Mild right ventricular enlargement with [...] appendage emptying velocity 31 cm/sec. 3. No eiysu-in-orzv shunt at atrial level at rest or [...] ECHO DOPPLER COLOR (10/20/2018 2:26 PM CDT) [facility] Method Time Signature Ejection Fraction 55 MC [...] motion abnormalities, estimated ejection fraction 55% with eutk-il-bzpa variability. 3. Mild right ventricular enlargement wi [...] ventricular ejection fra ction 55 % with ezxf-tk-wral variability. ??No regional wall motion abnormalities. ??Indetermina [...] below. See PDF For Result Procedure Note éGnesis Pike M.D. - 10/21/2018Formattin g of this note might be different from the original. For the complete report, see the Order-L evel Documents below. Final Impressions 1. Technically challenging examination. Please see comments. 2. Normal left ventricular chamber size, no regional wall motion abnormalities, estimated ejection fraction 55% with wbzf-ap-gfhm variability. 3. Mild right ventricular enlargement wi [...] ventricular ejection fra ction 55 % with hfmg-af-uruv variability. No regional wall motion abnormalities. Indeterminate [...] documented as of this encounter Care Teams Flyer Repairer Relationship Specialty Start Date End Date Elsewhere, Pcp PCP - General Internal Medicine 07/27/18 documented as of this encounter
--- OUTSIDE RECORDS SUMMARY | 2022-01-08 16:41 | XMS_ITS | Encounter Summary ---
:1955 Author Organization [facility] Address [address] [place] [address] Care Team Providers Name Role Phone Bruce, Vianney Caballero APRN, C.N.P., M.S.N. Primary Care Provider [phone] Reason for Visit Reason Comments Anticoagulation Encounter Details Date Type Department Care Team Description 07/09/2018 Documentation Division of [facility] Krishna Marreroroxana Internal Medicine, Romy Fernández APRN, [facility], in C.N.P. [place], [place] [address] [place] [phone] Social History Tobacco Use Types Packs/Day [...] do you attend faith or Never 2018 protestant services? Do you [...] 07/09/2018 2:39 PM CDT REFERRAL SOURCE Estelle Oquendo CHIEF [...] p.o. daily RECHECK INR: 07/13/2018; POC at [facility] documented in this encounter Plan of Treatment Not on filedocumented as of this encounter Visit Diagnoses Not on filedocumented in this encounter Additional Health Concerns Assessment Noted Time PHQ-9 Depression Total Score: 11 05/04/2013 4:05 PM CS T documented as of this encounter Care Teams Merchandise Appraiser Relationship Specialty Start Date End Date Vianney Barrera APRN, C.N.P., PCP - General Internal Medicine 07/06/18 07/26/18 M.S.N. [address] [place] [phone] documented as of this encounter
--- OUTSIDE RECORDS SUMMARY | 2022-01-08 16:41 | XMS_ITS | Encounter Summary ---
:1955 Author Organization [facility] Address [address] [place] [address] Care Team Providers Name Role Phone Vianney Barrera APRN, C.NMarcel., M.S.N. Primary Care Provider [phone] Reason for Visit Reason Comments Anticoagulation Encounter Details Date Type Department Care Team Description 07/13/2018 Documentation Division of Community [place], Vianney Caballero APRN , Anticoagulation Internal Medicine, C.N.P., M.S.N . [facility] in [address] [place] [address] [place] [address] [phone] Social History Tobacco Use Types Packs/Day Years [...] do you attend buddhist or Never 2018 rastafarian services? Do you [...] mg daily RECHECK INR: 07/15/2018; POC at [facility] documented in this encounter Plan of Treatment Not on filedocumented as of this encounter Visit Diagnoses Not on filedocumented in this encounter Additional Health Concerns Assessment Noted Time PHQ-9 Depression Total Score: 11 05/04/2013 4:05 PM CS T documented as of this encounter Care Teams Geodesist Relationship Specialty Start Date End Date Vianney Barrera APRN, C.N.P., PCP - General Internal Medicine 07/06/18 07/26/18 M.S.N. [address] [place] [address] documented as of this encounter
--- OUTSIDE RECORDS SUMMARY | 2022-01-08 16:41 | XMS_ITS | Encounter Summary ---
:1955 Author Organization [facility] Address [address] [place] [address] Care Team Providers Name Role Phone Vianney Barrera APRN, C.NMarcel., M.S.N. Primary Care Provider [phone] Reason for Visit Reason Comments Anticoagulation Encounter Details Date Type Department Care Team Description 07/15/2018 Documentation Division of Community [place], Vianney Caballero APRN , Anticoagulation Internal Medicine, C.N.P., M.S.N . [facility] in [address] [place] [phone] [place] [address] [phone] Social History Tobacco Use Types Packs/Day Years [...] do you attend jain or Never 2018 rastafari services? Do you [...] p.o. daily RECHECK INR: 07/17/2018; POC at [facility] documented in this encounter Plan of Treatment Not on filedocumented as of this encounter Visit Diagnoses Not on filedocumented in this encounter Additional Health Concerns Assessment Noted Time PHQ-9 Depression Total Score: 11 05/04/2013 4:05 PM CS T documented as of this encounter Care Teams Functional Manager Relationship Specialty Start Date End Date Vianney Barrera APRN, C.N.P., PCP - General Internal Medicine 07/06/18 07/26/18 M.S.N. [address] [place] [address] documented as of this encounter
--- OUTSIDE RECORDS SUMMARY | 2022-01-08 16:41 | XMS_ITS | Encounter Summary ---
:1955 Author Organization [facility] Address [address] [place] [address] Care Team Providers Name Role Phone Vianney Barrera APRN, C.N.P., M.S.N. Primary Care Provider [phone] Reason for Visit Reason Comments Anticoagulation Encounter Details Date Type Department Care Team Description 07/24/2018 Documentation [facility] Krishna Marreroroxana Internal Medicine, Romy Fernández APRN, [facility], in C.N.P. [place], [place] [address] [place] [phone] Social History Tobacco Use Types Packs/Day [...] do you attend rastafarian or Never 2018 baptism services? Do you [...] 07/27/2018 Since patient will be discharging from [facility] 07/25/2018, she needs to have next INR scheduled through primary care provider. INR due 07/27/2018. documented in this encounter Plan of Treatment Not on filedocumented as of this encounter Visit Diagnoses Not on filedocumented in this encounter Additional Health Concerns Assessment Noted Time PHQ-9 Depression Total Score: 11 05/04/2013 4:05 PM CS T documented as of this encounter Care Teams College And Career Counselor Relationship Specialty Start Date End Date Vianney Barrera APRN, C.N.P., PCP - General Internal Medicine 07/06/18 07/26/18 M.S.N. [address] [place] [address] documented as of this encounter
--- OUTSIDE RECORDS SUMMARY | 2022-01-08 16:41 | XMS_ITS | Encounter Summary ---
:1955 Author Organization [facility] Address [address] [place] [address] Care Team Providers Name Role Phone Elsewhere, Pcp Primary Care Provider Unavailable Reason for Visit Reason Onset Date Comments Rapid Heart Rate 10/30/2018 Encounter Details Date Type Department Care Team Description 10/30/2018 Clinical Department of Steven Rapid Heart Ra te Communication Cardiovascular Tracy Orozco, Medicine in [place], .S.N., R .NRed [facility] [phone] [address] [facility] (Work) [place] [address] Social History Tobacco Use Types Packs/Day Years [...] do you attend congregation or Never 2018 orthodoxy services? Do you [...] 11/02/2018 4:10 PM CDT I contacted the assisted. Dr. Johnston was not available, but I spoke to her nurse. Her vitals over the last few days show consistently elevated heart rate between 110-135 beats per minute. She is asymptomatic other than occasional headache. Her edema is improved. [facility] pre [...] CDT INFORMATION DISCUSSED Dr. Johnston from a exterminator helper termite facility in [place], [place] contacted [facility] regarding Ms. Metcalf. He states that he is overseeing her care in the assisted until Ms. Metcalf can be transferred to the assisted living facility (she is waiting for an open bed). Dr. Johnston states that in the assisted they are monitoring Ms. Metcalf's vital signs. Ms. Metcalf has had heart rates in the 130's on three separate occassions and with on of those occassions being this morning. Dr. Johnston states that yesterday morning Ms. Metcafl's heart rate was 66 bpm. However, this [...] Dr. Johnston can be reached at the assisted facility's phone number of : [phone]. He said verbal orders can also be [...] documented as of this encounter Care Teams Order Department Supervisor Relationship Specialty Start Date End Date Elsewhere, Pcp PCP - General Internal Medicine 07/27/18 documented as of this encounter
--- OUTSIDE RECORDS SUMMARY | 2022-01-08 16:41 | XMS_ITS | Encounter Summary ---
:1955 Author Organization [facility] Address [address] [place] [address] Care Team Providers Name Role Phone Bruce, Vianney Caballero APRN, C.N.P., M.S.N. Primary Care Provider [phone] Reason for Visit Reason Comments Anticoagulation Encounter Details Date Type Department Care Team Description 07/17/2018 Documentation Division of [facility] Krishna Marreroroxana Internal Medicine, Romy Fernández APRN, [facility], in C.N.P. [place], [place] [address] [place] [phone] Social History Tobacco Use Types Packs/Day [...] do you attend hindu or Never 2018 presybeterian services? Do you [...] 07/17/2018 4:15 PM CDT REFERRAL SOURCE Estelle Oquendo CHIEF [...] p.o. daily RECHECK INR: 07/20/2018; POC at [facility] documented in this encounter Plan of Treatment Not on filedocumented as of this encounter Visit Diagnoses Not on filedocumented in this encounter Additional Health Concerns Assessment Noted Time PHQ-9 Depression Total Score: 11 05/04/2013 4:05 PM CS T documented as of this encounter Care Teams 3Rd Mate Relationship Specialty Start Date End Date Vianney Barrera APRN, C.N.P., PCP - General Internal Medicine 07/06/18 07/26/18 M.S.N. [address] [place] [address] documented as of this encounter
--- OUTSIDE RECORDS SUMMARY | 2022-01-08 16:41 | XMS_ITS | Encounter Summary ---
:1955 Author Organization [facility] Address [address] [place] [address] Care Team Providers Name Role Phone Elsewhere, Pcp Primary Care Provider Unavailable Reason for Referral Outpatient (Routine) - Closed Specialty Diagnoses / Referred By Referred To Cont act Procedures Contact Gastroenterology and Diagnoses [facility]normal [facility] Bess Monroy [address] [place] [address] Referral ID Status Reason Start Date Expiration Date Visits Requ ested Visits Authorized [id number] Closed 10/21/2018 10/21/2019 1 1 Reason for Visit Outpatient (Routine) - Closed Specialty Diagnoses / Procedures Referred By Contact Refer red To Contact Cardiovascular Disease Nelly Eustis Guanaco Monroy M.D. [address] [place] [address] Referral ID Status Reason Start Date Expiration Date Visits Requ ested Visits Authorized [id number] Closed 09/14/2018 09/14/2019 1 1 Encounter Details Date Type Department Care Team Description 10/21/2018 Office Visit Department of Nelly Flutter Atrial (HCC) (Primary Dx); Cardiovascular Medicine Ayaka Monroy ormal Liver Function Test in [facility] nasim Kellogg 200 [facility] [address] [place] [address] [place], [place] [phone] [address] Social History Tobacco Use Types Packs/Day Years [...] do you attend christian or Never 2018 oriental orthodox services? Do [...] regurgitation.She had a most recent admission to [facility] June for recurrent atrial flutter and [...] >=60 11/25/2018 Black/ mL/min/BSA 12:49 PM CDT Tunisian Comment: ----ADDITIONAL INFORMATION---- Estimated GFR calculated using [...] Organization Address City/State/ZIP Code Phon e Number [facility] - [address] [place], [place] [address] [facility] (ABNORMAL) Hepatic Function Panel (11/25/2018 11:07 AM CDT) [facility] Method Time Signature Bilirubin, Total, S [...] Organization Address City/State/ZIP Code Phon e Number [facility] - [address] [place], [place] [address] [facility] (ABNORMAL) PT (Prothrombin Time) with INR (11/25/2018 11:07 AM CDT) [facility] Time Signature Prothrombin 38.4 (H) 9.4 - [...] M.D. LAB BLOOD ADD-ON Performing Organization Address [facility]/ZIP Code Phon e Number [facility] - [address] (ABNORMAL) CBC without Differential (11/25/2018 11:07 AM CDT) [facility] gist Method Time Signature Hemoglobin 14.8 [...] LAB BLOOD ADD-ON Performing Organization Address City/[facility]/ZIP Code Phon e Number [facility] - [address] US Abdomen Complete (11/25/2018 10:35 AM [...] documented as of this encounter Care Teams Gun Stock Checker Relationship Specialty Start Date End Date Elsewhere, Pcp PCP - General Internal Medicine 07/27/18 documented as of this encounter
--- OUTSIDE RECORDS SUMMARY | 2022-01-08 16:41 | XMS_ITS | Encounter Summary ---
:1955 Author Organization [facility] Address [address] [place] [address] Care Team Providers Name Role Phone Elsewhere, Pcp Primary Care Provider Unavailable Encounter Details Date Type Department Care Team Description 10/22/2018 Clinical Communication Department of Marley Cooper Cardiovascular Medicine D in [facility] [phone] [address] [facility] (Work) [place] [address] Social History Tobacco Use Types Packs/Day [...] do you attend buddhism or Never 2018 cheondoism services? Do you [...] documented as of this encounter Care Teams Time Study Observer Relationship Specialty Start Date End Date Elsewhere, Pcp PCP - General Internal Medicine 07/27/18 documented as of this encounter
--- OUTSIDE RECORDS SUMMARY | 2022-01-08 16:41 | XMS_ITS | Encounter Summary ---
:1955 Author Organization [facility] Address [address] [place] [address] Care Team Providers Name Role Phone Bruce, Vianney Caballero APRN C.N.P., M.S.N. Primary Care Provider [phone] Reason for Visit Reason Comments Anticoagulation management Encounter Details Date Type Department Care Team Description 07/22/2018 Documentation Division of [facility] [place] [facility] D, P.A.-C. [facility] [address] [place] [address] in [facility] [phone] [place] [phone] [place] [address] (Work) [place], [place] [phone] (Fax) [phone] Social History Tobacco Use Types Packs/Day Years [...] documented as of this encounter Care Teams Setter Out Relationship Specialty Start Date End Date Vianney Barrera APRN, C.N.P., PCP - General Internal Medicine 07/06/18 07/26/18 M.S.N. [address] [place] [address] documented as of this encounter
--- OUTSIDE RECORDS SUMMARY | 2022-01-08 16:41 | XMS_ITS | Encounter Summary ---
:1955 Author Organization [facility] Address [address] [place] [address] Care Team Providers Name Role Phone Elsewhere, Pcp Primary Care Provider Unavailable Encounter Details Date Type Department Care Team Description 09/01/2018 Clinical Communication Department of Rossi Houston Cardiovascular Medicine Stacy, P.AEdilma- CEdilma in [facility] varnishing unit operator [address] [facility] [address] [place] [address] [phone] Social History Tobacco Use Types Packs/Day Years [...] do you attend methodist or Never 2018 islam services? Do you [...] documented as of this encounter Care Teams Certified Veterinary Technician Relationship Specialty Start Date End Date Elsewhere, Pcp PCP - General Internal Medicine 07/27/18 documented as of this encounter
--- OUTSIDE RECORDS SUMMARY | 2022-01-08 16:41 | XMS_ITS | Encounter Summary ---
:1955 Author Organization [facility] Address [address] [place] [address] Care Team Providers Name Role Phone Elsewhere, Pcp Primary Care Provider Unavailable Reason for Referral Outpatient (Routine) - Closed Specialty Diagnoses / Procedures Referred By Contact Refer red To Contact Cardiovascular Tip Villegas [place] Guanaco Monroy M.D. [address] [place] [address] Referral ID Status Reason Start Date Expiration Date Visits Requ ested Visits Authorized [id number] Closed 11/25/2018 11/25/2019 1 1 Reason for Visit Outpatient (Routine) - Closed Specialty Diagnoses / Procedures Referred By Contact Reggie harris To Contact Cardiovascular Tip Villegas [place] Guanaco Monroy M.D. [address] [place] [address] Referral ID Status Reason Start Date Expiration Date Visits Requ ested Visits Authorized [id number] Closed 11/02/2018 11/02/2019 1 1 Encounter Details Date Type Department Care Team Description 11/25/2018 Office Visit Department of Nelly, Thrombus Atria l (HCC) (Primary Dx); Cardiovascular Medicine Lynette Monroy tter Atrial (HCC) in [facility] nasim Kellogg 200 [facility] 200 [place] [address] [place], [place] [phone] Social History Tobacco Use Types Packs/Day Years [...] do you attend anglican or Never 2018 yazdanism services? Do you [...] is telling me that her power of state's attorney is her oldest son; however, it is unclear whether this has been finalized legally. I will request a consult by a social studies teacher to assist in those decisions. We will [...] member who is legally her power of state's attorney. The patient also has a Hepatology [...] ventricul ar ejection fraction 55 % with vrqb-nj-mvbx variability. RIGHT VENTRICLE: ??Mild right ventricul ar [...] performed at the request of the primary auto servicer. ??Adult probe inserted without difficulty. ??Procedure performed [...] Sedation Narrator or other pertinent record in [facility] for additional procedure and sedation in [...] ventricular ejection f raction 55 % with bjob-mf-pxsj variability. 5. Tiny pericardial effusion around the [...] 7. [facility] July [facility] 2018 and October 20 2018 for other details of resting finding. Procedure Note Rhina Lucas M.B.B.S., Ph.D. - For the complete report, see the [facility] Documents below. Final Impressions 1. GOAL DIRECTED MICHAEL TO ASSESS LEFT ATRI AL APPENDAGE 2. Dilated and hypokinetic left atrial a ppendage with dense spontaneous echo contrast. No left atrial appendage thrombus. 3. 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 4. Estimated left ventricular ejection f raction 55 % with rsqp-cz-xctn variability. 5. Tiny pericardial effusion around the URUSLA/transverse sinus and posteriorly. 6. Compared to the [...] 7. Please refer to the report of [facility] MICHAEL from July 01 2018 and [...] left ventricular ejection fraction 55 % with xkxe-oq-unlk variability. RIGHT VENTRICLE: Mild right ventricular enlargement. [...] performed at the request of the primary auto servicer. Adult pr obe inserted without difficulty. Procedure [...] documented as of this encounter Care Teams Library Technician Relationship Specialty Start Date End Date Elsewhere, Pcp PCP - General Internal Medicine 07/27/18 documented as of this encounter
--- OUTSIDE RECORDS SUMMARY | 2022-01-08 16:41 | XMS_ITS | Encounter Summary ---
:1955 Author Organization [facility] Address [address] [place] [address] Care Team Providers Name Role Phone Vianney Barrera APRN C.N.P., M.S.N. Primary Care Provider [phone] Encounter Details Date Type Department Care Team Description 07/23/2018 External Outreach Division of Diana Gabriel Flucaitliner Atrial ([facility]); Community Internal D, P.A.-C. Hypertensive Heart Disease With Heart Fa ilure ([facility]); [facility] [address] [place] [address] Thrombus Atrial ([facility]) [facility], in [facility] [address] [place] [phone] [place] [address] (Work) [place], [place] [phone] (Fax) [phone] Social History Tobacco Use Types Packs/Day Years [...] do you attend presybeterian or Never 2018 baptist services? Do you [...] P.A.-C. - 07/23/2018 2:13 PM CDT REFERRAL [facility] CHIEF COMPLAINT/PURPOSE OF VISIT Discharge from [facility] (Short-term rehab) HISTORY OF PRESENT ILLNESS Ms. Metcalf is a 63 y.o. woman, recently hospitalized June 29 - 2018, related to recurrent atrial flutter. Patient discharged to [facility] for short-term rehabilitation. Patient has now completed goals of therapy and is planning to discharge back to her home in [place] on July 25, 2018. #1 Flutter Atrial (HCC) Overview: -admitted at the [facility] from 06/22/2018 - 06/23/2018, [...] to discharge back to her home in [place], [place] on 07/24/18, where she resides with [...] a front-wheeled walker. Have asked the facility Direct Chill Casting Operator to set the patient up with home health services/OT prior to her discharge, as patient did not appear to be cognizant of the providers for these services. Did stress the importance of following up with both the in-home OT as recommended, and followup with PCP. Recommend patient followup with her primary care provider at [facility] in approximately 2 weeks for continued care. Did encourage the patient to set this appointment up prior to her discharge date. Patient will need to resume previous anticoagulation management. Otherwise, continue current plan of care as directed. Future Appointments Date Time Provider Department Center 08/10/2018 9:00 AM Ana Maria Aburto APRN C.N.P., M.S.N. CVD [facility] RST Spec PATIENT [...] documented as of this encounter Care Teams Case Mgr Relationship Specialty Start Date End Date Vianney Barrera APRN, C.N.P., PCP - General Internal Medicine 07/06/18 07/26/18 M.S.N. [address] [place] [address] documented as of this encounter
--- OUTSIDE RECORDS SUMMARY | 2022-01-08 16:41 | XMS_ITS | Encounter Summary ---
:1955 Author Organization [facility] Address [address] [place] [address] Care Team Providers Name Role Phone Elsewhere, Pcp Primary Care Provider Unavailable Reason for Visit Reason Onset Date Comments Appointment 09/15/2018 Encounter Details Date Type Department Care Team Description 09/15/2018 Clinical Communication Department of Mainsha Villegas Cardiovascular Medicine Porfirio in [facility] nasim Kellogg [address] [facility] [address] [place] [address] [place], [place] [phone] Social History Tobacco Use Types Packs/Day Years [...] do you attend pentecostalism or Never 2018 adventist services? Do you [...] CDT Hi, I got a call from [facility] by a Sierra. She was calling this patient's appts. She was wondering if the patient can come on a and Friday? Can you please call her back [phone]. Thanks I didn't know if there was any notes on this pt. documented in this encounter Plan of Treatment Not on filedocumented as of this encounter Visit Diagnoses Not on filedocumented in this encounter Additional Health Concerns Assessment Noted Time PHQ-9 Depression Total Score: 11 05/04/2013 4:05 PM CS T documented as of this encounter Care Teams Laundry Technician Relationship Specialty Start Date End Date Elsewhere, Pcp PCP - General Internal Medicine 07/27/18 documented as of this encounter
--- OUTSIDE RECORDS SUMMARY | 2022-01-08 16:41 | XMS_ITS | Encounter Summary ---
:1955 Author Organization [facility] Address [address] [place] [address] Care Team Providers Name Role Phone Elsewhere, Pcp Primary Care Provider Unavailable Reason for Referral Outpatient (Routine) - Closed Specialty Diagnoses / Referred By Contact Referred To Contact Procedures Cardiovascular Diseases / Diagnoses Flutter Atrial (HCC) 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) [facility] Cardiovascular Disease Luan Monroy [address] [place] [address] Referral ID Status Reason Start Date Expiration Date Visits Requ ested Visits Authorized [id number] Closed 09/14/2018 09/14/2019 1 1 Outpatient (Routine) - Closed Specialty Diagnoses / Procedures Referred By Contact Refer red To Contact [facility]ovascular [facility] Bess Monroy [address] [place] [address] Referral ID Status Reason Start Date Expiration Date Visits Requ ested Visits Authorized [id number] Closed 09/14/2018 09/14/2019 1 1 Scheduling Instructions With myself in 1 month on a friday af ternoon Reason for Visit Outpatient (Routine) - Closed Specialty Diagnoses / Referred By Contact Referred To Contact Procedures Cardiovascular Diseases / Diagnoses Flutter Atrial (HCC) Oralia Ricks, [facility] Cardiovascular Disease Rod SARABIA. 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 Do you [...] CDT documented in this encounter Consult Notes Porfirio Villegas M.D. - 09/14/2018 8:30 AM CDT REASON [...] June she was again admitted, thistime at [facility] with recurrent atrial flutter with RVR. A [...] care. Since discharge from the hospital at [place], she had another brief admission elsewherefor recurrent [...] when she returns. CT CT Job ID: [id number] documented in this encounter Plan of Treatment [...] with Differential, Blood (10/20/2018 3:02 PM CDT) [facility] Method Time Signature Hemoglobin 12.9 11.6 [...] M.D. LAB BLOOD ADD-ON Performing Organization Address [facility] Phon e Number [facility] - [address] [place] [address] [facility] (ABNORMAL) [...] M.D. LAB BLOOD ADD-ON Performing Organization Address [facility] Code Phon e Number [facility] - [address] [place] [address] [facility] (ABNORMAL) CMP (Comprehensive Metabolic Panel) [...] >=60 10/20/2018 Black/ mL/min/BSA 4:05 PM CDT Russian Comment: ----ADDITIONAL INFORMATION---- Estimated GFR calculated using [...] City/State/ZIP Code Phon e Number [facility] - [address] [place], [place] [address] [facility] HOLTER MONITOR - IN CLINIC FUTURES TRADER (10/20/2018 12:14 PM CDT) [facility] gist Method Time Signature VT Runs 0 count HOLTER SENTINEL VE Total Beats 1 count HOLTER SENTINEL VE Percent 0 percent HOLTER Beats SENTINEL VE Max Per [id number] HOLTER Hour Time SENTINEL VE Max Per [...] 0 count HOLTER SENTINEL Min Heart Rate [id number] HOLTER Time SENTINEL Min Heart Rate 40 bpm HOLTER SENTINEL Mean Heart 58 bpm HOLTER Rate SENTINEL Max Heart Rate [id number] HOLTER Time SENTINEL Max Heart Rate 73 [...] emptying veloci ty 31 cm/sec. 3. No bpjol-je-jwdn shunt at atrial leve l at rest [...] saline in jection(s) performed during sedation. ??No pwwsd-js-tujz shunt at atrial level at rest or with Va lsalva release. ??The left atrial appendage thrombus is no longer seen. A tiny mobile echodensit y is now seen which has similar tissue density to the surrounding myocardium. Differential inc ludes tiny organized thrombus vs normal left atrial appendage trabeculation. ??No pericardia l effusion. ??PROCEDURE ??Transesophageal echocardiogram performed at the request of the primary vp celebrity services. ??Adult probe inserted without difficulty. ??Procedure [...] emptying veloci ty 31 cm/sec. 3. No qrgxb-go-ofpt shunt at atrial leve l at rest [...] saline inje ction(s) performed during sedation. No jlnrv-ro-etxm shunt at atrial level at rest or with Va lsalva release. The left atrial appendage thrombus is no longer seen. A tiny mobile echodensit y is now seen which has similar tissue density to the surrounding myocardium. Differential inc ludes tiny organized thrombus vs normal left atrial appendage trabeculation. No pericardial effusion. PROCEDURE Transesophageal echocardiogram performed at the request of the primary vp celebrity services. Adult probe inserted without difficulty. Procedure [...] Sedation Narrator or other pertinent record in [facility] for addit ional procedure and sedation information. [...] as of this encounter Care Teams Cell Plasterer Relationship Specialty Start Date End Date Elsewhere, Pcp PCP - General Internal Medicine 07/27/18 documented as of this encounter
--- OUTSIDE RECORDS SUMMARY | 2022-01-08 16:41 | XMS_ITS | Encounter Summary ---
:1955 Author Organization [facility] Address [address] [place] [address] Care Team Providers Name Role Phone Elsewhere, Pcp Primary Care Provider Unavailable Encounter Details Date Type Department Care Team Description 10/20/2018 Hospital Encounter Department of Siontis, Flutter Atrial (HCC); Laboratory Medicine Porfirio, Thrombu s Atrial (HCC); and Pathology, M.D. 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 Do you belong to any clubs or No 02/26/2019 organizations such as zoroastrian groups, unions, fraternal or athletic groups, or [...] Systolic (Congestive) And Diastolic (Congestive) Heart Failure ([facility]) CBC WITH DIFFERENTIAL, Routine 10/20/2018 3:02 PM Flutter Atri al Results for this B CDT (HCC) procedure are in Thrombus Atrial the results (HCC) section. Acute On Chronic Combined Systolic (Congestive) And Diastolic (Congestive) Heart Failure ([facility]) COMPREHENSIVE Routine 10/20/2018 3:02 PM Flutter Atrial Result s for this METABOLIC PANEL, S/P CDT (HCC) procedure are in Thrombus Atrial the results (HCC) section. Acute On Chronic Combined Systolic (Congestive) And Diastolic (Congestive) Heart Failure ([facility]) documented in this encounter Results (ABNORMAL) CBC with Differential, Blood (10/20/2018 3:02 PM CDT) [facility] Method Time Signature Hemoglobin 12.9 11.6 [...] Organization Address City/State/ZIP Code Phon e Number [facility] - [address] [place], [place] [address] [facility] (ABNORMAL) PT (Prothrombin Time) with INR (10/20/2018 3:02 PM CDT) [facility] Method Time Signature Prothrombin 25.4 (H) 9.4 [...] Organization Address City/State/ZIP Code Phon e Number [facility] - [address] [place], [place] [address] [facility] (ABNORMAL) CMP (Comprehensive Metabolic Panel) (10/20/2018 3:02 [...] >=60 10/20/2018 Black/ mL/min/BSA 4:05 PM CDT [place] Islander Comment: ----ADDITIONAL INFORMATION---- Estimated GFR calculated [...] Organization Address City/State/ZIP Code Phon e Number [facility] - [address] documented in this encounter Visit Diagnoses Diagnosis Flutter Atrial (HCC) Thrombus Atrial (HCC) 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
--- OUTSIDE RECORDS SUMMARY | 2022-01-08 16:41 | XMS_ITS | Encounter Summary ---
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 Do you belong to any clubs or No 02/26/2019 organizations such as islam groups, unions, fraMashalot or athletic groups, or school groups? How [...] Flutter Atrial (HCC) Results for this CLINIC HAULPAK DRIVER CDT Thrombus Atrial procedure are in (HCC) the results Acute On Chronic section. Combined Systolic (Congestive) And Diastolic (Congestive) Heart Failure (HCC) documented in this encounter Results HOLTER MONITOR - IN CLINIC HAULPAK DRIVER (10/20/2018 12:14 PM CDT) [facility] gist Method Time Signature VT Runs 0 count HOLTER SENTINEL VE Total Beats 1 count HOLTER SENTINEL VE Percent 0 percent HOLTER Beats SENTINEL VE Max Per [id number] HOLTER Hour Time SENTINEL VE Max Per 1 count HOLTER Hour SENTINEL Tachycardia 0 count HOLTER Runs SENTINEL SVT Runs 3 count HOLTER SENTINEL SVT Max Rate 123 bpm HOLTER SENTINEL SVE Total 3,120 count HOLTER Beats SENTINEL SVE Percent 4 percent HOLTER Beats SENTINEL SVE Max Per [id number] HOLTER Hour Time SENTINEL SVE Max Per 809 count HOLTER Hour SENTINEL Recording Date HOLTER SENTINEL Holter Pauses 0 count HOLTER SENTINEL Min Heart Rate [id number] HOLTER Time SENTINEL Min Heart Rate 40 bpm HOLTER SENTINEL Mean Heart 58 bpm HOLTER Rate SENTINEL Max Heart Rate [id number] HOLTER Time SENTINEL Max Heart Rate 73 [...] as of this encounter Care Teams Customer Service Security Officer Relationship Specialty Start Date End Date Elsewhere, Pcp PCP - General Internal Medicine 07/27/18 documented as of this encounter
--- OUTSIDE RECORDS SUMMARY | 2022-01-08 16:41 | XMS_ITS | Encounter Summary ---
:1955 Author Organization [facility] Address [address] [place] [address] Care Team Providers Name Role Phone Elsewhere, Pcp Primary Care Provider Unavailable Encounter Details Date Type Department Care Team Description 11/25/2018 Hospital Encounter Department of Siontis, Abnormal Liver Radiology, Garett Monroy Counts include 234 beds at the [facility] in .[place], [place] [address] [facility] [address] [place] [address] [phone] Social History Tobacco Use Types Packs/Day Years [...] you attend latter day or Never 2018 confucianism services? Do you [...] documented as of this encounter Care Teams Crane Chaser Relationship Specialty Start Date End Date Elsewhere, Pcp PCP - General Internal Medicine 07/27/18 documented as of this encounter
--- OUTSIDE RECORDS SUMMARY | 2022-01-08 16:41 | XMS_ITS | Encounter Summary ---
:1955 Author Organization [facility] Address [address] [place] [address] Care Team Providers Name Role Phone Elsewhere, Pcp Primary Care Provider Unavailable Reason for Visit Reason Comments Medication Visit Encounter Details Date Type Department Care Team Description 07/20/2018 Documentation Division of [facility] Cathleen, Medication Visit Internal Medicine, Luan Diaz. Estevez, [facility], in [address] [place] [address] [place] [address] [place] [address] [phone] Social History Tobacco Use Types Packs/Day Years [...] do you attend buddhism or Never 2018 judaism services? Do you [...] 11:39 PM CDT Contacted by Jyothi at [facility] for missed coumadin dose this last Friday. [...] documented as of this encounter Care Teams Psychology Department Chair Relationship Specialty Start Date End Date Elsewhere, Pcp PCP - General Internal Medicine 07/27/18 documented as of this encounter
--- OUTSIDE RECORDS SUMMARY | 2022-01-08 16:41 | XMS_ITS | Encounter Summary ---
:1955 Author Organization [facility] Address [address] [place] [address] Care Team Providers Name Role Phone Vianney Barrera APRN, C.N.P., M.S.N. Primary Care Provider [phone] Reason for Visit Reason Onset Date Comments Please call to verify Retirement Discharge 07/20/2018 Encounter Details Date Type Department Care Team Description 07/20/2018 Clinical Communication Division of Vianney Barrera Plea se call to [facility] Dulce SARABIA, irish [facility], in [address] [place] [address] [place] [address] [place], [place] (Work) [phone] Social History Tobacco Use Types Packs/Day [...] do you attend sikh or Never 2018 islam services? Do you [...] this encounter Miscellaneous Notes Telephone Encounter - Jon Tellezpanchito [place] - 07/20/2018 12:23 PM CDT Patient is to discharge from [facility] on 07/25, communication was shared on 07/20 with the desk staff to fax an updated appointment guide to the facility. Patient is not on the Pending [facility] list. Update PCP/ Report/ Registry and remove Comment and Patient type. documented in this encounter Plan of Treatment Not on filedocumented as of this encounter Visit Diagnoses Not on filedocumented in this encounter Additional Health Concerns Assessment Noted Time PHQ-9 Depression Total Score: 11 05/04/2013 4:05 PM CS T documented as of this encounter Care Teams Jinrikisha Driver Relationship Specialty Start Date End Date Vianney Barrera APRN, C.N.P., PCP - General Internal Medicine 07/06/18 07/26/18 M.S.N. [address] [place] [address] documented as of this encounter
--- OUTSIDE RECORDS SUMMARY | 2022-01-08 16:41 | XMS_ITS | Encounter Summary ---
:1955 Author Organization [facility] Address [address] [place] [address] Care Team Providers Name Role Phone Elsewhere, Pcp Primary Care Provider Unavailable Encounter Details Date Type Department Care Team Description 10/20/2018 Hospital Encounter Department of Sondra Villegas On Chronic Cardiovascular Diseases Archana Monroy bined Systolic in [facility] nasim Kellogg (Congestive) And [address] Diastolic [place], [place] (Congestive) Heart [id number] Failure (HCC) [phone] Social History Tobacco Use Types Packs/Day Years [...] do you attend yazidism or Never 2018 bahai services? Do you [...] ECHO DOPPLER COLOR (10/20/2018 2:26 PM CDT) [facility] gist Method Time Signature Ejection Fraction [...] motion abnormalities, estimated ejection fraction 55% with wklc-dc-obkp variability. 3. Mild right ventricular enlargement wi [...] ventricular ejection fra ction 55 % with cpbf-yl-brbn variability. ??No regional wall motion abnormalities. ??Indetermina [...] motion abnormalities, estimated ejection fraction 55% with svsk-co-csvd variability. 3. Mild right ventricular enlargement wi [...] ventricular ejection fra ction 55 % with hsnh-vx-xkpm variability. No regional wall motion abnormalities. Indeterminate [...] documented as of this encounter Care Teams Terminologist Relationship Specialty Start Date End Date Elsewhere, Pcp PCP - General Internal Medicine 07/27/18 documented as of this encounter
--- OUTSIDE RECORDS SUMMARY | 2022-01-08 16:41 | XMS_ITS | Encounter Summary ---
:1955 Author Organization [facility] Address [address] [place] [address] Care Team Providers Name Role Phone Elsewhere, Pcp Primary Care Provider Unavailable Reason for Referral Outpatient (Routine) - Closed Specialty Diagnoses / Procedures Referred By Contact Refer red To Contact [facility] Bess Monroy [address] [place] [address] Referral ID Status Reason Start Date Expiration Date Visits Requ ested Visits Authorized [id number] Closed 11/02/2018 11/02/2019 1 1 Scheduling Instructions With myself on 11/11 in the afternoon Encounter Details Date Type Department Care Team Description 11/02/2018 Orders Only Department of Cody Villegas Atrial (HCC) Cardiovascular Medicine Porfirio (Pr imary Dx) in [facility] nasim [place]ogg [address] [facility] [address] [place] [address] [place], [place] [phone] Social History Tobacco Use Types Packs/Day Years [...] or relatives? How often do you attend anabaptism or Never 2018 roman catholic services? Do you belong to any clubs or No 02/26/2019 organizations such as anabaptism groups, unions, fraternal or athletic groups, or [...] ECG 12 Lead (11/25/2018 12:31 PM CDT) [facility] gist Method Time Signature Ventricular 96 BPM MUSE Rate ECG/Min QRSD Interval 98 ms MUSE QT Interval 274 ms MUSE QTC Interval 346 ms MUSE P [place] -106 degrees MUSE R [place] 99 degrees MUSE T Wave [place] -99 degrees MUSE CODED DIAGNOSIS Atrial MUSE [...] documented as of this encounter Care Teams Marriage Therapist Relationship Specialty Start Date End Date Elsewhere, Pcp PCP - General Internal Medicine 07/27/18 documented as of this encounter
--- OUTSIDE RECORDS SUMMARY | 2022-01-08 16:41 | XMS_ITS | Encounter Summary ---
:1955 Author Organization [facility] Address [address] [place] [address] Care Team Providers Name Role Phone Vianney Barrera APRN, C.NMarcel., M.S.N. Primary Care Provider [phone] Reason for Visit Reason Comments Anticoagulation Encounter Details Date Type Department Care Team Description 07/20/2018 Documentation Division of [facility] [place], Vianney Caballero APRN , Anticoagulation Internal Medicine, C.N.P., M.S.N . [facility] in [address] [place] [phone] [place] [address] [phone] Social History Tobacco Use Types Packs/Day Years [...] do you attend episcopal or Never 2018 alevism services? Do you [...] until INR>2.5 RECHECK INR: 07/22/2018; POC at [facility] documented in this encounter Plan of Treatment Not on filedocumented as of this encounter Visit Diagnoses Not on filedocumented in this encounter Additional Health Concerns Assessment Noted Time PHQ-9 Depression Total Score: 05/04/2013 4:05 PM CS T documented as of this encounter Care Teams Lens Inserter Relationship Specialty Start Date End Date Vianney Barrera APRN, C.N.P., PCP - General Internal Medicine 07/06/18 07/26/18 M.S.N. [address] [place] [phone] documented as of this encounter
--- OUTSIDE RECORDS SUMMARY | 2022-01-08 16:42 | XMS_ITS | Encounter Summary ---
:1955 Author Organization [facility] Address [address] [place] [address] Care Team Providers Name Role Phone Vianney Barrera APRN, C.N.P., M.S.N. Primary Care Provider [phone] Reason for Visit Appointment Request (Routine) - Closed Specialty Diagnoses / Procedures Referred By Contact Refer red To Contact Community Internal Medicine Referral ID Status Reason Start Date Expiration Date Visits Requ ested Visits Authorized [id number] Closed 07/06/2018 07/06/2019 1 1 Encounter Details Date Type Department Care Team Description 07/08/2018 External Outreach Division of Cody Keyes ([facility]) (Primary Dx); Community Internal Della Leon, Thrombus Atrial ([facility]); Medicine, Herb Marshall, B.ChEdilma, Hypertensi ve Heart Disease With Heart Failure ([facility]); [facility], in Bess Mann Diabetes Mellitus Type 2 Without Complic ation ([facility]); [place], [facility] [address] [facility] Migraine Headache; [place], [place] Hyperlipidemia On Treatment; [address] [facility] [address] Fibromyalgia; [place], [place] [phone] Other Specifie d Anxiety Disorders; [phone] (Work) Apnea Sleep Obstructive; [phone] Gastroesophagea l Reflux Disease Without Esophagitis; (Fax) [...] do you attend hindu or Never 2018 religion services? Do you [...] H&P Notes Della Keyes M.B., BEsthela, B.A.Frank, M.Pradeep. - 07/08/2018 2:30 PM CDT CHIEF COMPLAINT / REASON FOR VISIT Iris Metcalf is a 63 y.o. female seen today for an admission visit at [facility] ([facility] HISTORY OF PRESENT ILLNESS Ms. Metcalf is 63 years old and lives in [place]. She has multiple medical comorbidities including recurrent [...] were reviewed and updated as appropriate in [facility]:allergies, current medications, medical/surgical history, social history, [...] breath., Disp: 1 Inhaler, Rfl: 11 ??? bnzafme-tfnhjdarjdbne-unxaidbz (EXCEDRIN MIGRAINE) 250-250-65 mg per tablet, Take [...] Flutter Atrial (HCC) Overview: -admitted at [facility] from 06/22/2018 - 06/23/2018, [...] Keyes M.B., B.Ch., Bess Mann - 07/08/2018 3:50 PM CDTAssociated [...] documented as of this encounter Care Teams Towboat Operator Relationship Specialty Start Date End Date Vianney Barrera APRN, C.N.P., PCP - General Internal Medicine 07/06/18 07/26/18 M.S.N. [address] [place] [address] documented as of this encounter
--- OUTSIDE RECORDS SUMMARY | 2022-01-08 16:42 | XMS_ITS | Encounter Summary ---
:1955 Author Organization [facility] Address [address] [place] [address] Care Team Providers Name Role Phone Vianney Barrera APRN, C.N.P., M.S.N. Primary Care Provider [phone] Reason for Referral Outpatient (Routine) - Closed Specialty Diagnoses / Referred By Contact Referred To Contact Procedures Cardiovascular Diseases / Diagnoses Flutter Atrial (HCC) Oralia Ricks, [facility] Cardiovascular Disease [place], C.N.P. [address] [place] [phone] Referral ID Status Reason Start Date Expiration Date Visits Requ ested Visits Authorized [id number] Closed 07/03/2018 07/03/2019 1 1 Reason for Visit Reason Onset Date Comments Pre-visit Testing Orders 07/03/2018 Encounter Details Date Type Department Care Team Description 07/03/2018 Clinical Department of Millicent Pre-visit Test ing Communication Cardiovascular Oralia Hernandez, Orders Medicine in [place], C.N.P. [place], [place] [address] [place] [address] [place] [phone] Social History Tobacco Use Types Packs/Day Years [...] do you attend anabaptist or Never 2018 quaker services? Do you [...] as of this encounter Care Teams Body Engineer Relationship Specialty Start Date End Date Vianney Barrera APRN, C.N.P., PCP - General Internal Medicine 07/06/18 07/26/18 M.S.N. [address] [place] [address] documented as of this encounter
--- OUTSIDE RECORDS SUMMARY | 2022-01-08 16:42 | XMS_ITS | Encounter Summary ---
:1955 Author Organization [facility] Address [address] [place] [address] Care Team Providers Name Role Phone Vianney Barrera APRN, C.N.P., M.S.N. Primary Care Provider [phone] Encounter Details Date Type Department Care Team Description 07/07/2018 Documentation Division of [facility] Vianney Barrera APRN , Internal Medicine, Herb France, M.S.NEdilma [facility], in [address] [place] [phone] [place] [address] [phone] Social History Tobacco Use Types Packs/Day Years [...] do you attend christianity or Never 2018 zoroastrian services? Do you [...] RECHECK INR: 07/09/2018; POC at [facility] documented in this encounter Plan of Treatment Not on filedocumented as of this encounter Visit Diagnoses Not on filedocumented in this encounter Additional Health Concerns Assessment Noted Time PHQ-9 Depression Total Score: 11 05/04/2013 4:05 PM CS T documented as of this encounter Care Teams Youth Director Relationship Specialty Start Date End Date Vianney Barrera APRN, C.N.P., PCP - General Internal Medicine 07/06/18 07/26/18 M.S.N. [address] [place] [address] documented as of this encounter
--- OUTSIDE RECORDS SUMMARY | 2022-01-08 16:42 | XMS_ITS | Encounter Summary ---
:1955 Author Organization [facility] Address [address] [place] [address] Care Team Providers Name Role Phone Unavailable [...] do you attend synagogue or Never 2018 congregational services? Do you [...]
--- OUTSIDE RECORDS SUMMARY | 2022-01-08 16:42 | XMS_ITS | Encounter Summary ---
:1955 Author Organization [facility] Address [address] [place] [address] Care Team Providers Name Role Phone Unavailable [...] do you attend sikh or Never 2018 church services? Do you [...]
--- OUTSIDE RECORDS SUMMARY | 2022-01-08 16:42 | XMS_ITS | Encounter Summary ---
:1955 Author Organization [facility] Address [address] [place] [address] Care Team Providers Name Role Phone Vianney Barrera APRN, C.N.P., M.S.N. Primary Care Provider [phone] Encounter Details Date Type Department Care Team Description 07/07/2018 Orders Only Division of [facility] Vianney Barrera APRN, Internal Medicine, Herb France, M.S.NEdilma [facility], in [address] [place] [phone] [place] [address] [phone] Social History Tobacco Use Types Packs/Day Years [...] often do you attend restorationist or Never 12/06/ 2019 taoist services? Do you belong to any [...] documented as of this encounter Care Teams Surgical Resident Relationship Specialty Start Date End Date Vianney Barrera APRN, C.N.PEdilma, PCP - General Internal Medicine 07/06/18 07/26/18 M.S.N. [address] [place] [phone] documented as of this encounter
--- OUTSIDE RECORDS SUMMARY | 2022-01-08 16:42 | XMS_ITS | Encounter Summary ---
:1955 Author Organization [facility] Address [address] [place] [address] Care Team Providers Name Role Phone Bruce, Vianney Caballero APRN C.N.P., M.S.N. Primary Care Provider [phone] Reason for Visit Reason Comments CTP Eligibility Encounter Details Date Type Department Care Team Description 07/07/2018 Patient Outreach Division of [facility] Palomo Hurd, CTP Eligibility Internal Medicine, [facility] in [address] [place] [phone] [place] [phone] Social History Tobacco Use Types Packs/Day Years [...] do you attend orthodox or Never 2018 anabaptism services? Do you [...] documented as of this encounter Care Teams Aircraft Engine Dismantler Relationship Specialty Start Date End Date Vianney Barrera APRN, C.N.P., PCP - General Internal Medicine 07/06/18 07/26/18 M.S.N. [address] [place] [phone] documented as of this encounter
--- OUTSIDE RECORDS SUMMARY | 2022-01-08 16:42 | XMS_ITS | Encounter Summary ---
:1955 Author Organization [facility] Address [address] [place] [address] Care Team Providers Name Role Phone Unavailable [...] do you attend yarsani or Never 2018 shinto services? Do you [...]
--- OUTSIDE RECORDS SUMMARY | 2022-01-08 16:42 | XMS_ITS | Encounter Summary ---
:1955 Author Organization [facility] Address [address] [place] [address] Care Team Providers Name Role Phone Unavailable Primary Care Provider Unavailable Encounter Details Date Type Department Care Team Description 05/04/2013 Hospital Encounter HX RST FIBRO AHP OP [facility], Marlene bangura A, R.N. [address] [place] [phone] Social History Tobacco Use Types Packs/Day Years [...] do you attend christianity or Never 2018 sabianist services? Do you [...]
--- OUTSIDE RECORDS SUMMARY | 2022-01-08 16:42 | XMS_ITS | Encounter Summary ---
:1955 Author Organization [facility] Address [address] [place] [address] Care Team Providers Name Role Phone Vianney Barrera APRN, C.N.P., M.S.N. Primary Care Provider [phone] Encounter Details Date Type Department Care Team Description 06/29/2018 - Hospital Encounter [facility] StaceyBola thompson Renita Nathan.B.S. [address] [place] [id number] Flutter Atrial (HCC) (Primary Dx); [facility] Decline Functional Status; [facility], Fourth Floor [address] [place] [id number] Social History Tobacco Use Types Packs/Day [...] do you attend taoism or Never 2018 yazdanism services? Do you [...] Petra Dillard M.D. Discharge Provider Team: [facility] PRINCIPAL DIAGNOSIS Flutter Atrial (HCC) DISMISSAL DIAGNOSES [...] y.o. female who was admitted to the [facility] for management of atrial flutter. She has a past medical history of recurrent atrial flutter, hypertension, chronic diastolic heart failure, hyperlipidemia, depression with anxiety and dependent personality disorder. She was recently admitted at the [facility] from 06/22/2018 - 06/23/2018, [...] weakness and decreased caregiver support at home. retirement facility placement was recommended post-discharge. Social work [...] added: acetaminophen, diltiazem, losartan, warfarin Dixon Iris Roula Home Medication Instructions THOMAS:[id number] Printed on:07/06/18 6722 Medication Information acetaminophen (TYLENOL) 500 mg tablet Take 2 tablets (1,000 mg total) by mouth every 6 (six) hours as needed for pain or fever. albuterol (PROAIR HFA) 90 mcg/actuation inhaler Inhale 1-2 puffs every 4 (four) hours as needed for shortness of breath. leeqfzq-ljtqkuuzfkprz-geyctmlq (EXCEDRIN MIGRAINE) 250-250-65 mg per tablet Take [...] atrial thrombus; INR goal 2.5-3.5. DISCHARGE DISPOSITION: Retirement Facility [3] CONDITION ON DISCHARGE: Stable. DIET [...] AM CDT You were discharged from the [facility]. Please identify this service name if you call with questions after hospitalization. Discharge Instr - ActivityAlly Canela P.T., Pradeep.P.T. - 07/02/2018 6:54 PM CDT Physical Therapy [...] on 07/02/2018 by Tommy Rogers Contact information: [facility], [address], 07/03/2018 I have reviewed & agree with analysis and recommendations; Ally Canela P.T., D.P.T. Discharge Instr - Non [place] Follow-UpsFoKellee perales - 07/01/2018 10:11 AM CDT * Take a copy of your dismissal paperwork with you to your appointments. * [place] June: 11:00 a.m. - Dr. Radha Parish, care provider, hospital follow up visit, at [facility]. [facility] [place], [place] You may have outpatient appointments at [facility] that changed during your hospitalization. Refer to your [facility] Patient Appointment Guide (PAG) for the most current schedule of appointments anddetails instructions of tests / procedures. Call [phone] if you did not receive a PAG or need to CANCEL any [facility] appointment(s). documented in this encounter Medications at [...] 6 hours PRN 07/06/18 0841 07/06/18 0000 huspziu-xmmdalvkzamrf-ofquafdf (EXCEDRIN MIGRAINE) 250-250-65 mg per tablet 1-2 tablet oral As needed 07/06/18 0841 06/29/18 1816 acetaminophen tablet 1,000 mg (TYLENOL) Comments: Use for patients with no hepatic disease 1,000 mg oral Every 6 hours PRN 06/29/18 1817 Potentiating Start Dose/Rate Route Frequency Ordered Stop 07/06/18 0000 acetaminophen (TYLENOL) 500 mg tablet 1,000 mg oral Every 6 hours PRN 07/06/18 0841 07/06/18 0000 xlprlbq-ffvdafwvxvbjc-ysruvhuv (EXCEDRIN MIGRAINE) 250-250-65 mg per tablet 1-2 [...] this finding with goal INR 2.5-3.5 per e business consultant. INR is therapeutic at 2.7 after [...] INR goal 2.5-3.5 as per service. Valerie Myers Pharm.D., R.Ph. Contact [phone] with any questions about this note. Petra [...] magnesium, which has been low before. Lissette Breen, PharmJohn., R.Ph. - 07/05/2018 8:51 AM CDT Warfarin [...] ago through future) None Antiplatelets & Anticoagulants (h ago through future) Start Dose/Rate Route Frequency [...] this finding with goal INR 2.5-3.5 per e business consultant. INR is therapeutic at 2.7 after [...] date/range tbd Lissette Breen, Pharm.DEdilma, R.Ph. Contact [phone] with any questions about this note. Petra [...] this finding with goal INR 2.5-3.5 per e business consultant. Patient was taking rivaroxaban with last [...] date/range tbd Lissette Breen Pharm.D., R.Ph. Contact [phone] with any questions about this note. Petra Dillard M.D. - 07/03/2018 6:22 PM CDT I agree with the daily progress note, history, physical and management plan as outlined by Oralia Zhong with the below changes and additions. Mila Quezada L.I.C.S.W., M.S.W. - 07/03/2018 3:19 PM CDT SUBJECTIVE Referral Data Referral Source: Early Screen for Discharge Planning Referral Reason: Discharge Planning Discharge Planning: Retirement Facility The patient was seen for ongoing discharge needs. A list of custodial facility options (that patient/family geographically resides or requests) has been provided to and reviewed with patient/family. Disclaimers: Financial disclosure provided informing patient of our ownership and financial relationship of the [facility]home health & hospice agencies. Reviewed insurance coverage, provided patient with in-network options if applicable. Patient/family have indicated a preference for the facility/agency below. patient and family declined additional resources. Provided the patient with a referral update while her son was present. They agreed that their preference would be for [facility] as the son lives nearby. OBJECTIVE Anticipated [...] Address Phone Number Fax Number Kaity Oquendo [facility] [address] [facility] [address] [phone] Contact: nursing Transportation oxygen: No oxygen needed. PER KAITY OQUENDO: ?? Our feeder driver will pick her at the EAST/PRU doors ??with our w/c on 07/06 at 10am. ?? The feeder driver will bring a portable O2 tank for transport if needed. ?? The patient must have had a bowel movement within 24 hrs of discharge. ?? The dismissal summary and orders must include an MD signature on the day of discharge and a diagnosis with each medication ordered. A MANAGER STRATEGIC SOURCING signature is NOT acceptable. ?? Any substitutions of current IV, IM, oral and mist medication orders [facility] may potentiate cancellation of the admission. ?? [...] WORK: - Pre-admission screen has been completed. ([id number]) - Will continue to follow. Adalberto Castro, [...] seated rest break. Training/Intervention: DGI-4, cues to pickle solution maker feet and step big Response: DGI-4: Patient [...] collaboration with the patient. Ally Canela P.T., D.PEdilmaTSo Villasenor Pharm.D., R.Ph. - 07/03/2018 9:04 AM CDT [...] 1,000 mg oral Every 6 hours PRN 06/29/181816 Enzyme Inducers None Binders None Vitamin K-Containing [...] this finding with goal INR 2.5-3.5 per e business consultant. Patient was taking rivaroxaban with last dose 06/30 at 1600. INR stagnant. Will in crease dose to 7.5mg. The pharmacist team will continue to follow patient's clinical progress daily until discharge from the hospital. When patient discharged, discharge plan is for discharge warfarin dose: tbd mg Post Hospital follow up tbd INR recheck date/range tbd So Jovel Pharm.D., R.Ph. Contact [phone] with any questions about this note. Oralia Ricks APRN, C.N.P. - 07/03/2018 7:[address] [facility] CARDIOLOGY INPATIENT PROGRESS NOTE SUBJECTIVE Ms. Metcalf [...] flutter. She is status post cardioversion in [place] and had some some issues with noncompliance [...] completed and skilled care was recommended. --social work case manager seeking skilled care placement VTE: Heparin IV GI: Pantoprazole Code Status: Full Code Disposition: Home - self care Oralia Ricks APRN, C.N.P. 07/03/[address] [facility] Heart Rhythm [facility] Douglas Ibarra M.B.BEdilmaS. - 07/02/2018 5:46 PM CDT ASSESSMENT / PLAN Ms. Metcalf is qualified for a custodial facility. From a heart rhythm perspective, she [...] are no restrictions. CT CT Job ID: [id number] Priyanka Emerson R.N. - 07/02/2018 2:21 PM [...] with patient and go over dismissal options. Cadmium Plater will continue to follow if any needs [...] atrial appendage thrombus CT CT Job ID: [id number] So Jovel, Pharm.D., R.Ph. - 07/02/2018 8:18 AM CDT Warfarin [...] this finding with goal INR 2.5-3.5 per e business consultant. Patient was taking rivaroxaban with last [...] up tbd INR recheck date/range tbd So Jovel, PharmCarlos, R.Ph. Contact [phone] with any questions about this note. Oralia Ricks, NO, C.N.P. - 07/02/2018 7:08 AM CDT T [facility] Heart Rhythm [facility] CARDIOLOGY INPATIENT PROGRESS NOTE SUBJECTIVE Ms. Metcalf was seen and examined on morning rounds. She is alert and pleasant. She has no concerns. She reports that she will be staying with her youngest son in [place] for 2 weeks. TELEMETRY 138 Atrial flutter [...] flutter. She is status post cardioversion in [place] and had some some issues with noncompliance [...] of potassium --PM&R safety and cognitive evaluation --client server programmer is following closely for homegoing issues. VTE: Heparin IV GI: Pantoprazole Code Status: Full Code Disposition: Home - self care Oralia Ricks APRN, C.N.P. 07/02/[address] [facility] Heart Rhythm [facility] Tommy Rogers - 07/01/2018 4:59 PM [...] this finding with goal INR 2.5-3.5 per e business consultant. Patient was taking rivaroxaban with last [...] date/range tbd So Jovel Pharm.D., R.Ph. Contact [phone] with any questions about this note. Markel [...] will proceed today. CT CT Job ID: [id number] Oralia Ricks APRN, C.N.P. - 07/01/2018 7:37 AM CDT [facility] CARDIOLOGY INPATIENT PROGRESS NOTE SUBJECTIVE Ms. [...] flutter. She is status post cardioversion in [place] and had some some issues with noncompliance [...] self care Oralia Ricks APRN, C.N.P. 07/01/18 [facility] Ken Tommy Federico - 06/30/2018 1:56 PM [...] Richey P.A.-C. - 06/30/2018 10:36 AM CDT [facility] CARDIOLOGY INPATIENT PROGRESS NOTE SUBJECTIVE Ms. Metcalf was seen and examined on morning rounds in conjunction with my e business consultant Dr. Ibarra.Patient reports no events overnight. [...] admitted with flutter with rapid rates in [place] spontaneously converted to normal rhythm. She is [...] and diltiazem drip. CT CT Job ID: [id number] Antelmo Richey P.A.-C. - 06/29/2018 7:10 PM CDT Images from the original note were not included. CARDIOLOGY INPATIENT ADMISSION NOTE CHIEF COMPLAINT/REASON FOR VISIT Atrial flutter Collaborating physician: Douglas Ibarra M.B.B.S. Admitting service: [facility] HISTORY OF PRESENT ILLNESS Ms. Metcalf is a 63 y.o. female who presented to the [facility] for management of atrial flutter. She has medical comorbidities including, but not limited to: Atrial flutter, hypertension, hyperlipidemia, type 2 diabetes on metformin (A1c 6.5 on 05/11/2018), CHAPITO not using CPAP, iron deficiency anemia, depression with anxiety, migraine, mild persistent asthma, fibromyalgia, polypharmacy, migraine headaches. The patient was initially admitted at [facility] for management of paroxysmal atrial fibrillation with [...] every 4 (four) hours as needed. ??? acxnlzf-yxarqddgihnvw-lhomknmb (EXCEDRIN MIGRAINE) 250-250-65 mg per tablet, Take [...] flutter. She was recently admitted at the [facility] from 06/22 through 06/23/2018, where [...] to diltiazem. The patient has an elevated [id number] asc score for atrial fibrillation Stroke risk [...] report any pain. Activity Orders Start Ordered 06/30/18915 Activity: As Tolerated Until discontinued Question: Activity Level: Answer: As Tolerated 06/30/1815 Precautions Other Precautions: Cardiac, fall Fall Risk [...] questions answered. Outcome Measures Current ADL Status: [facility] Inpatient Short Form: Putting on and [...] CMS Modifier: CJ Interpretation: Clinicians answer the [facility] Inpatient Short Form based on observed [...] CMS Modifier: MILAN Arechiga O.T. Mila Quezada L.I.C.STerri., M.S.W. - 07/03/2018 9:35 AM CDT Psychosocial Assessment SUBJECTIVE Visited with the patient 1:1 at the bedside in patient's hospital room. Introduced myself and my role with social work to the patient, including my status as a mandated laboratory animal facility supervisor. Discussed the current discharge recommendation for rehab placement, which patient stated being agreeable to. She shared that if rehab is unable to be obtained, she would be able to stay with her son for a few weeks before returning home. A list of custodial facility options (that patient/family geographically resides or requests) has been provided to and reviewed with patient/family. Disclaimers: Financial disclosure provided informing patient of our ownership and financial relationship of the [facility] beds, home health, and hospice agencies. Reviewed insurance coverage, provided patient with in-network options if applicable. Patient was agreeable to the following referrals, which were sent on her behalf: [facility], [facility], [facility], and [facility]. Shared that social work would initiate those referrals, and would provide an update when responses are received from the facilities. DEMOGRAPHIC INFORMATION Referral Source: Early Screen for Discharge Planning Referral Reason: Discharge Planning Discharge Planning: Retirement Facility Person(s) present during interview: Patient Primary care clinic and provider: [facility] / Dr. Kandace Mckeon Primary Language: Swiss Community Educator Services Used: No Citizenship: [place] Citizen Resident [...] disability, and the other son resides in [place] and is willing to have patient stay with him for a few weeks post-discharge. Support Systems: Children. We have not received permission to contact them. 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 Psychosocial Risk Factors impacting [...] Behavior: Forgetful Communication: Talks, Understands speaking, Understands Swiss It is anticipated that the patient will need assistance with Medication Set- up/Administration, Housekeeping, Transportation Use (drive car, use taxi/bus). ASSISTIVE DEVICES Patient has the following equipment: Walker, Grab Bars - Wall, Grab Bars - Toilet Patient anticipates potentially needing the following additional equipment: Walker, Grab Bars - Wall, Grab Bars - Toilet TABLE GAMES FLOOR SUPERVISOR Formal and Informal Resources: Home Health Care: [...] Discharge Planning Discussion/Education Options Provided [facility]FERR[facility]: [facility] ?? [facility] ?? [facility] ?? [facility] ?? [facility] ?? [facility] ?? [facility] PLAN ?? Motivation for treatment/plan: fair ?? [...] Prior Function / Occupational Profile Level of [place]: Independent with ADLs and functional transfers, Needs [...] clear leftlower extremity. Training/Intervention: MiniBEST-13, cues to pickle solution maker feet, assistantce at gait belt to maintain [...] by the 3rd box when cue dot pickle solution maker feet. Patient reached max heart rate of 137 bpm following 10 meters of ambulation and began to feel symptoms of her heart racing. Education provided this session: continued ambulation with nursing while self- monitoring for symptoms of dyspnea with exertion; the benefits of custodial facilities and their role in therapy The patient/family educated on safe transfer techniques with functional mobility/activity. The following coordination of care occurred today: Contacted Patient's nurse and dock worker regarding discharge/safety recommendations, equipment needs/recommendations and [...] Score: 50.57 % Basic Mobility CMS Modifier: CHIRAG Rogers, SPT Associated attestation - Ally Canela [...] Who was present during the interview?: Patient Community Educator Services Used: No Patient Information Primary Caregiver: [...] Behavior: Forgetful Communication: Talks, Understands speaking, Understands Swiss Environmental Supports Home Environment: Apartment Anticipated Modifications [...] aide Home Care Agency Name : [facility] Anticipated Discharge Destination: Home-Health Care c Does the patient need discharge transport arranged?: No ASSESSMENT / PLAN ??Assessment: Met with the patient to discuss her prior level of care and home going needs. I reviewed my role of Cadmium Plater. Patient reviewed her current hospitalization and appears [...] and support system; reviewing that her primary senior care manager is herself. She reports that she needs [...] weeks and is hoping [facility] the [facility] in an assisted living facility. Patient did add that her son does work fulltime, so he will not be home to give her 24 hour assistance. I have a call into her son, Yaya to confirm a safe transition back to home. (JULIANNA on file) Son was unavailable, so I left a message. I will start the reconnection process with the [facility] company and follow up with the discharge plan later today. Spoke to patient's son, Yaya, about dismissal plan for patient, Yaya said patient was going to stay with him for a couple weeks and then go back home to [place]. Yaya said she does live with his [...] her to his home. 5. Reconnections needed [facility] Signed by: Priyanka Emerson R.N. 06/30/2018 documented [...] about going there for rehab. Jessica Dominguez R.N. - 07/03/2018 6:35 AM CDT Problem: PAIN - ADULT Goal: PT VERBALIZES/DEMONSTRATES ADEQUATE COMFORT LEVEL OR BASELINE Outcome: Progressing Comments: Shift Goals: Clinical Goals for the Shift: Patient will adequately report pain throughout shift Identify possible barriers to meeting goals/advancing plan of care: None End of Shift Summary: Goal met So Rya R.N. - 07/02/2018 7:14 PM CDT SAFETY [...] female who was [facility] the [facility] for management of atrial flutter. She has a past medical history of recurrent atrial flutter, hypertension, chronic diastolic heart failure, hyperlipidemia, depression with anxiety and dependent personality disorder. She was recently admitted at the [facility] from 06/22/2018 - 06/23/2018, where she was [...] weakness and decreased caregiver support at home. retirement facility placement was recommended post-discharge. Social work [...] CBC without Differential (07/06/2018 6:26 AM CDT) [facility] Method Time Signature Hemoglobin 12.8 11.6 - 07/06/2018 [facility] 15.0 g/dL 6:53 AM CDT LABORATORIES - [facility] Hematocrit 39.7 35.5 - 07/06/2018 [facility] 44.9 % 6:53 AM CDT LABORATORIES [facility] Erythrocytes 4.55 3.92 - 07/06/2018 [facility] 5.13 6:53 AM CDT LABORATORIES - x10(12)/L [facility] MCV 87.3 78.2 - 07/06/2018 [facility] 97.9 fL 6:53 AM CDT [facility] - [facility] RBC Distrib 14.3 12.2 - 07/06/2018 [facility] Width 16.1 % 6:53 AM CDT [facility] Platelet Count 475 (H) 157 - 371 07/06/2018 [facility] x10(9)/L 6:53 AM CDT [facility] Leukocytes 9.8 (H) 3.4 - 9.6 07/06/2018 [facility] x10(9)/L 6:53 AM CDT [facility] Specimen Anatomical Collection Method Collection Time Receive d Time (Source) Location / / Volume Laterality Blood (Blood, 07/06/2018 6:26 AM 07/07/19 19 6:45 Venous) CDT AM CDT Oralia Ricks APRN, C.N.P. LAB BLOOD ADD-ON Performing Organization Address City/[facility] Phon e Number [facility] - [address] (ABNORMAL) Prothrombin Time (PT/INR) (07/06/2018 6:26 AM CDT) [facility] Method Time Signature Prothrombin 28.9 (H) 9.4 - 07/06/2018 [facility] Time, P 12.5 sec 7:06 AM CDT [facility] INR 2.6 0.9 - 1.1 07/06/2018 [facility] 7:06 AM CDT [facility] Comment: ----ADDITIONAL INFORMATION---- Standard intensity warfarin therapeutic range: 2.0 to 3.0 ?? High intensity warfarin therapeutic rang e: 2.5 to 3.5 Specimen Anatomical Collection Method Collection Time Receive d Time (Source) Location / / Volume Laterality Blood (Blood, 07/06/2018 6:26 AM 07/07/19 19 6:45 Venous) CDT AM CDT Oralia Ricks APRN, C.N.P. LAB BLOOD ADD-ON Performing Organization Address City/[facility] Code Phon e Number [facility] - [address] [place] [phone] [address] [facility] Basic Metabolic Panel (07/06/2018 6:26 AM CDT) Analysis Performed At Patho logist Time Signature Potassium, S 4.3 3.6 - 5.2 07/06/2018 [facility] mmol/L 7:25 AM CDT [facility] Sodium, S 139 135 - 145 07/06/2018 [facility] mmol/L 7:25 AM CDT LABORATORIES [facility] Chloride, S 102 98 - 107 07/06/2018 [facility] mmol/L 7:25 AM CDT LABORATORIES [facility] Bicarbonate, S 24 22 - 29 07/06/2018 [facility] mmol/L 7:25 AM CDT LABORATORIES [facility] Anion Gap 13 7 - 15 07/06/2018 [facility] 7:25 AM CDT LABORATORIES [facility] BUN (Blood Urea 19 6 - 21 07/06/2018 [facility] Nitrogen), S mg/dL 7:25 AM T [facility] Creatinine 0.99 0.59 - 07/06/2018 [facility] 1.04 mg/dL 7:25 AM CDT [facility] eGFR-Non 62 >=60 07/06/2018 [facility] Black/ mL/min/BSA 7:25 AM CDT LABORATORIES [facility] Comment: ----ADDITIONAL INFORMATION---- Estimated GFR calculated using the 2009 CKD_EPI creatinine equation. eGFR-Black/ 71 >=60 mL/min/BSA 07/06/2018 7:25 [facility] CDT [facility] Comment: ----ADDITIONAL INFORMATION---- Estimated GFR calculated using the 2009 CKD_EPI creatinine equation. Calcium, Total, S 9.3 8.8 - 10.2 mg/dL 07/06/2018 7:25 AM [facility] CDT [facility] Glucose, S 107 70 - 140 mg/dL 07/06/2018 7:25 AM [facility] Specimen Anatomical Collection Method Collection Time Receive d Time (Source) Location / / Volume Laterality Blood (Blood, 07/06/2018 6:26 AM 07/07/19 19 6:45 Venous) CDT AM CDT Bella Danielson P.A.-C., M.S. LAB BLOOD ADD-ON Performing Organization Address City/State/ZIP Code Phon e Number [facility] - [address] [address] [facility] (ABNORMAL) CBC without Differential (07/05/2018 6:34 AM CDT) [facility] Method Time Signature Hemoglobin 13.2 11.6 - 07/05/2018 [facility] 15.0 g/dL 7:14 AM CDT LABORATORIES - [facility] Hematocrit 42.1 35.5 - 07/05/2018 [facility] 44.9 % 7:14 AM CDT LABORATORIES - [facility] Erythrocytes 4.75 3.92 - 07/05/2018 [facility] 5.13 7:14 AM CDT LABORATORIES - x10(12)/L [facility] MCV 88.6 78.2 - 07/05/2018 [facility] 97.9 fL 7:14 AM CDT [facility] RBC Distrib 14.1 12.2 - 07/05/2018 [facility] Width 16.1 % 7:14 AM CDT [facility] Platelet Count 490 (H) 157 - 371 07/05/2018 [facility] x10(9)/L 7:14 AM CDT [facility] [place] - [facility] Leukocytes 9.6 3.4 - 9.6 07/05/2018 [facility] x10(9)/L 7:14 AM CDT [facility] Specimen Anatomical Collection Method Collection Time Receive d Time (Source) Location / / Volume Laterality Blood (Blood, 07/05/2018 6:34 AM 07/06/19 19 7:11 Venous) CDT AM CDT Oralia Ricks APRN, C.N.P. LAB BLOOD ADD-ON Performing Organization Address City/State/[facility] Phon e Number [facility] LABORATORIES - [address] [address] [facility] (ABNORMAL) Prothrombin Time (PT/INR) (07/05/2018 6:33 AM CDT) [facility] Method Time Signature Prothrombin 30.5 (H) 9.4 - 07/05/2018 [facility] Time, P 12.5 sec 7:36 AM CDT LABORATORIES [facility] INR 2.7 0.9 - 1.1 07/05/2018 [facility] 7:36 AM CDT [facility] Comment: ----ADDITIONAL INFORMATION---- Standard intensity warfarin therapeutic [...] Address City/State/ZIP Code Phon e Number [facility] LABORATORIES - [address] [place], [place] [address] [facility] (ABNORMAL) Basic Metabolic Panel (07/05/2018 6:33 AM CDT) [facility] gist Method Time Signature Potassium, S 4.6 3.6 - 5.2 07/05/2018 [facility] mmol/L 7:49 AM CDT LABORATORIES - [facility] Sodium, S 139 135 - 145 07/05/2018 [facility] mmol/L 7:49 AM CDT LABORATORIES - [facility] Chloride, S 100 98 - 107 07/05/2018 [facility] mmol/L 7:49 AM CDT LABORATORIES - [facility] Bicarbonate, S 26 22 - 29 07/05/2018 [facility] mmol/L 7:49 AM CDT LABORATORIES - [facility] Anion Gap 13 7 - 15 07/05/2018 [facility] 7:49 AM CDT LABORATORIES - [facility] BUN (Blood 21 6 - 21 07/05/2018 [facility] Urea mg/dL 7:49 AM CDT LABORATORIES - Nitrogen), S [facility] Creatinine 1.20 (H) 0.59 - 07/05/2018 [facility] 1.04 7:49 AM CDT LABORATORIES - mg/dL [facility] eGFR-Non 49 (L) >=60 07/05/2018 [facility] Black/ mL/min/BS 7:49 AM CDT LABORATORIES - Cambodian A [facility] Comment: ----ADDITIONAL INFORMATION---- Estimated GFR calculated using the 2009 CKD_EPI creatinine equation. eGFR-Black/ 56 (L) >=60 mL/min/BSA 07/05/2018 7:49 [facility] Cambodian AM CDT LABORATORIES - [facility] Comment: ----ADDITIONAL INFORMATION---- Estimated GFR calculated using the 2009 CKD_EPI creatinine equation. Calcium, Total, S 9.3 8.8 - 10.2 mg/dL 07/05/2018 7:49 AM [facility] CDT LABORATORIES - [facility] S Glucose, S 115 70 - 140 mg/dL 07/05/2018 7:49 AM [facility] CDT LABORATORIES - [facility] S Specimen Anatomical Collection Method Collection Time Receive d Time (Source) Location / / Volume Laterality Blood (Blood, 07/05/2018 6:33 AM 07/06/19 19 7:11 Venous) CDT AM CDT Kadeem Butts APRNN.P. LAB BLOOD ADD-ON Performing Organization Address City/[facility] Phon e Number [facility] LABORATORIES - [address] [address] [facility] Magnesium (07/05/2018 6:29 AM CDT) P athologist Signature Magnesium, S 1.8 1.7 - 2.3 07/05/2018 [facility] mg/dL 10:34 AM CDT LABORATORIES - [facility] Specimen Anatomical Collection Method Collection Time Receive d Time (Source) Location / / Volume Laterality Blood (Blood, 07/05/2018 6:29 AM 07/06/19 19 Venous) CDT 10:19 AM CDT Bella Danielson P.A.-C., M.S. LAB BLOOD ADD-ON Performing Organization Address City/[facility] Code Phon e Number [facility] LABORATORIES - [address] (ABNORMAL) Prothrombin Time (PT/INR) (07/04/2018 6:30 AM CDT) Patholo gist Method Time Signature Prothrombin 20.8 (H) 9.4 - 07/04/2018 [facility] Time, P 12.5 sec 7:02 AM CDT LABORATORIES - [facility] INR 1.9 0.9 - 1.1 07/04/2018 [facility] 7:02 AM CDT LABORATORIES - [facility] Comment: ----ADDITIONAL INFORMATION---- Standard intensity warfarin therapeutic range: 2.0 to 3.0 ?? High intensity warfarin therapeutic rang e: 2.5 to 3.5 Specimen Anatomical Collection Method Collection Time Receive d Time (Source) Location / / Volume Laterality Blood (Blood, 07/04/2018 6:30 AM 07/05/19 19 6:45 Venous) CDT AM CDT Oralia Ricks APRN, C.N.P. LAB BLOOD ADD-ON Performing Organization Address [facility] Phon e Number [facility] LAB[facility]ATORIES - [address] [address] [facility] (ABNORMAL) CBC without Differential (07/04/2018 6:30 AM CDT) [facility] [employer] Method Time Signature Hemoglobin 13.2 11.6 - 07/04/2018 [facility] 15.0 g/dL 6:54 AM CDT LABORATORIES - [facility] Hematocrit 41.4 35.5 - 07/04/2018 [facility] 44.9 % 6:54 AM CDT LABORATORIES - [facility] Erythrocytes 4.70 3.92 - 07/04/2018 [facility] 5.13 6:54 AM CDT LABORATORIES - x10(12)/L [facility] MCV 88.1 78.2 - 07/04/2018 [facility] 97.9 fL 6:54 AM CDT LABORATORIES - [facility] RBC Distrib 14.2 12.2 - 07/04/2018 [facility] Width 16.1 % 6:54 AM CDT LABORATORIES - [facility] Platelet Count 492 (H) 157 - 371 07/04/2018 [facility] x10(9)/L 6:54 AM CDT LABORATORIES - [facility] Leukocytes 9.1 3.4 - 9.6 07/04/2018 [facility] x10(9)/L 6:54 AM CDT LABORATORIES - [facility] Specimen Anatomical Collection Method Collection Time Receive d Time (Source) Location / / Volume Laterality Blood (Blood, 07/04/2018 6:30 AM 07/05/19 19 6:45 Venous) CDT AM CDT Oralia Ricks APRN, C.N.P. LAB BLOOD ADD-ON Performing Organization Address City/[facility] Phon e Number [facility] LABORATORIES - [address] [address] [facility] (ABNORMAL) Basic Metabolic Panel (07/04/2018 6:30 AM CDT) [facility] [employer] Method Time Signature Potassium, S 4.7 3.6 - 5.2 07/04/2018 [facility] mmol/L 7:20 AM CDT LABORATORIES - [facility] Sodium, S 138 135 - 145 07/04/2018 [facility] mmol/L 7:20 AM CDT LABORATORIES - [facility] Chloride, S 100 98 - 107 07/04/2018 [facility] mmol/L 7:20 AM CDT LABORATORIES - [facility] Bicarbonate, S 25 22 - 29 07/04/2018 [facility] mmol/L 7:20 AM CDT LABORATORIES - [facility] Anion Gap 13 7 - 15 07/04/2018 [facility] 7:20 AM CDT LABORATORIES - [facility] BUN (Blood 18 6 - 21 07/04/2018 [facility] Urea mg/dL 7:20 AM CDT LABORATORIES - Nitrogen), S [facility] Creatinine 1.06 (H) 0.59 - 07/04/2018 [facility] 1.04 7:20 AM CDT LABORATORIES - mg/dL [facility] eGFR-Non 57 (L) >=60 07/04/2018 [facility] Black/ mL/min/BS 7:20 AM CDT LABORATORIES - [place] A [facility] Comment: ----ADDITIONAL INFORMATION---- Estimated GFR calculated using the 2009 CKD_EPI creatinine equation. eGFR-Black/ 65 >=60 mL/min/BSA 07/04/2018 7:20 [facility] Cambodian AM CDT LABORATORIES - [facility] Comment: ----ADDITIONAL INFORMATION---- Estimated GFR calculated using the 2009 CKD_EPI creatinine equation. Calcium, Total, S 9.4 8.8 - 10.2 mg/dL 07/04/2018 7:20 AM [facility] CDT LABORATORIES - [facility] S Glucose, S 138 70 - 140 mg/dL 07/04/2018 7:20 AM [facility] CDT LABORATORIES - [facility] S Specimen Anatomical Collection Method Collection Time Receive d Time (Source) Location / / Volume Laterality Blood (Blood, 07/04/2018 6:30 AM 07/05/19 19 6:45 Venous) CDT AM CDT Oralia Ricks APRN, C.N.P. LAB BLOOD ADD-ON Performing Organization Address City/State/ZIP Code Phon e Number [facility] LABORATORIES - [address] [place], [place] [address] [facility] ECG 12 Lead (07/03/2018 9:41 AM CDT) [facility] gist Method Time Signature Ventricular 80 BPM MUSE Rate ECG/Min QRSD Interval 94 ms MUSE QT Interval 430 ms MUSE QTC Interval 497 ms MUSE P Cubero -113 degrees MUSE R Cubero 94 degrees MUSE T Wave Cubero -74 degrees MUSE CODED DIAGNOSIS Atrial MUSE [...] (07/03/2018 5:30 AM CDT) Analysis Performed At [facility] logist Time Signature Activated 79 (H) 25 - 37 07/03/2018 [facility] Partial sec 6:26 AM CDT LABORATORIES - Thrombopl [facility] Specimen Anatomical Collection Method Collection Time Receive d Time (Source) Location / / Volume Laterality Blood (Blood, 07/03/2018 5:30 AM 07/04/19 19 6:07 Venous) CDT AM CDT Douglas Pham LAB BLOOD ADD-ON Performing Organization Address City/State/ZIP Code Phon e Number [facility] LABORATORIES - [address] [place], [place] [address] [facility] (ABNORMAL) Prothrombin Time (PT/INR) (07/03/2018 5:30 AM CDT) Patholo gist Method Time Signature Prothrombin 14.2 (H) 9.4 - 07/03/2018 [facility] Time, P 12.5 sec 6:26 AM CDT LABORATORIES - [facility] INR 1.3 0.9 - 1.1 07/03/2018 [facility] 6:26 AM CDT LABORATORIES - [facility] Comment: ----ADDITIONAL INFORMATION---- Standard intensity warfarin therapeutic range: 2.0 to 3.0 ?? High intensity warfarin therapeutic rang e: 2.5 to 3.5 Specimen Anatomical Collection Method Collection Time Receive d Time (Source) Location / / Volume Laterality Blood (Blood, 07/03/2018 5:30 AM 07/04/19 19 6:07 Venous) CDT AM CDT Oralia Ricks APRN C.N.P. LAB BLOOD ADD-ON Performing Organization Address City/State/ZIP Code Phon e Number [facility] LABORATORIES - [address], [place] [address] [facility] (ABNORMAL) CBC without Differential (07/03/2018 5:30 AM CDT) [facility] Method Time Signature Hemoglobin 13.6 11.6 - 07/03/2018 [facility] 15.0 g/dL 6:16 AM CDT LABORATORIES [facility] Hematocrit 43.6 35.5 - 07/03/2018 [facility] 44.9 % 6:16 AM CDT [facility] Erythrocytes 4.90 3.92 - 07/03/2018 [facility] 5.13 6:16 AM CDT LABORATORIES - x10(12)/L [facility] MCV 89.0 78.2 - 07/03/2018 [facility] 97.9 fL 6:16 AM CDT LABORATORIES [facility] RBC Distrib 14.2 12.2 - 07/03/2018 [facility] Width 16.1 % 6:16 AM CDT LABORATORIES [facility] Platelet Count 531 (H) 157 - 371 07/03/2018 [facility] x10(9)/L 6:16 AM CDT LABORATORIES - [facility] Leukocytes 8.7 3.4 - 9.6 07/03/2018 [facility] x10(9)/L 6:16 AM CDT LABORATORIES [facility] Specimen Anatomical Collection Method Collection Time Receive d Time (Source) Location / / Volume Laterality Blood (Blood, 07/03/2018 5:30 AM 04/12/20 19 6:07 Venous) CDT AM CDT Kadeem Carr APRNNEdilmaPEdilma LAB BLOOD ADD-ON Performing Organization Address City/State/ZIP Code Phon e Number [facility] LABORATORIES - [address] [place], [place] [address] [facility] Basic Metabolic Panel (07/03/2018 5:30 AM CDT) Analysis Performed At Patho logist Time Signature Potassium, S 4.8 3.6 - 5.2 07/03/2018 [facility] mmol/L 6:41 AM CDT LABORATORIES - [facility] Sodium, S 138 135 - 145 07/03/2018 [facility] mmol/L 6:41 AM CDT LABORATORIES - [facility] Chloride, S 100 98 - 107 07/03/2018 [facility] mmol/L 6:41 AM CDT LABORATORIES - [facility] Bicarbonate, S 26 22 - 29 07/03/2018 [facility] mmol/L 6:41 AM CDT LABORATORIES [facility] Anion Gap 12 7 - 15 07/03/2018 [facility] 6:41 AM CDT LABORATORIES [facility] BUN (Blood Urea 16 6 - 21 07/03/2018 [facility] Nitrogen), S mg/dL 6:41 AM CDT LABORATORIES [facility] Creatinine 0.94 0.59 - 07/03/2018 [facility] 1.04 mg/dL 6:41 AM T LABORATORIES [facility] eGFR-Non 66 >=60 07/03/2018 [facility] Black/ mL/min/BSA 6:41 AM CDT LABORATORIES [facility] Comment: ----ADDITIONAL INFORMATION---- Estimated GFR calculated using the 2009 CKD_EPI creatinine equation. eGFR-Black/ 76 >=60 mL/min/BSA 07/03/2018 6:41 [facility] Cambodian CDT LABORATORIES [facility] Comment: ----ADDITIONAL INFORMATION---- Estimated GFR calculated using the 2009 CKD_EPI creatinine equation. Calcium, Total, S 9.2 8.8 - 10.2 mg/dL 07/03/2018 6:41 AM [facility] CDT LABORATORIES [facility] Glucose, S 116 70 - 140 mg/dL 07/03/2018 6:41 AM [facility] CDT LABORATORIES [facility] Specimen Anatomical Collection Method Collection Time Receive d Time (Source) Location / / Volume Laterality Blood (Blood, 07/03/2018 5:30 AM 07/04/19 19 6:07 Venous) CDT AM CDT Oralia Ricsk APRN, C.N.P. LAB BLOOD ADD-ON Performing Organization Address City/[facility]/ZIP Code Phon e Number [facility] LABORATORIES - [address], [place] [address] [facility] Glucose, POCT (07/03/2018 5:29 AM CDT) Analysis [...] Provider LAB POCT ORDERABLES-MANUAL Performing Organization Address City/[facility] Code Phon e Number POC [facility] [address] [place] [address] Glucose, POCT (07/03/2018 2:13 AM CDT) Analysis Performed At [facility] logist Time Signature Glucose, POCT, 114 70 - 140 07/03/2018 [facility] B mg/dL 2:15 AM CDT SERVICES Site Capillary 07/03/2018 [facility] 2:15 AM CDT SERVICES Specimen Anatomical Collection Method Collection Time Receive d Time (Source) Location / / Volume Laterality Blood 07/03/2018 2:13 AM 9 2:15 CDT AM CDT Unknown Provider LAB POCT ORDERABLES-MANUAL Performing Organization Address City/[facility] Phon e Number POC [facility] SERVICES [address] [place] [address] (ABNORMAL) APTT (Activated Partial Thromboplastin Time) (07/02/2018 9:01 PM CDT) Analysis Performed At Path logist Time Signature Activated 88 (H) 25 - 37 07/02/2018 [facility] Partial sec 10:04 PM CDT LABORATORIES - Thrombopl [facility] Specimen Anatomical Collection Method Collection Time Receive d Time (Source) Location / / Volume Laterality Blood (Blood, 07/02/2018 9:01 PM 07/03/19 19 9:31 Venous) CDT PM CDT Douglas RendonSEdilma LAB BLOOD ADD-ON Performing Organization Address City/[facility]/ZIP Code Phon e Number [facility] LABORATORIES - [address] [place], [place] [address] [facility] Glucose, POCT (07/02/2018 5:34 PM CDT) Analysis [...] Provider LAB POCT ORDERABLES-MANUAL Performing Organization Address [facility] Phon e Number POC [facility] SERVICES [address] [place] [address] (ABNORMAL) APTT (Activated Partial Thromboplastin Time) (07/02/2018 1:27 PM CDT) Analysis Performed At Patho logist Time Signature Activated 42 (H) 25 - 37 07/02/2018 [facility] Partial sec 2:25 PM CDT LABORATORIES - Thrombopl [facility] Specimen Anatomical Collection Method Collection Time Receive d Time (Source) Location / / Volume Laterality Blood (Blood, 07/02/2018 1:27 PM 07/03/19 19 1:59 Venous) CDT PM CDT Douglas RendonS. LAB BLOOD ADD-ON Performing Organization Address City/[facility] Code Phon e Number [facility] LABORATORIES - [address], [place] [address] [facility] Glucose, POCT (07/02/2018 1:16 PM CDT) Analysis [...] Provider LAB POCT ORDERABLES-MANUAL Performing Organization Address City/[facility]/ZIP Code Phon e Number POC [facility] SERVICES [address] [place] [address] Glucose, POCT (07/02/2018 6:41 AM CDT) Analysis [...] Provider LAB POCT ORDERABLES-MANUAL Performing Organization Address City/[facility] Code Phon e Number POC [facility] SERVICES [address] [place] [address] Thyroid Function [place] (07/02/2018 5:23 AM CDT) P athologist Signature TSH, Sensitive 3.3 0.3 - 4.2 07/02/2018 [facility] mIU/L 9:20 AM CDT LABORATORIES - [facility] Specimen Anatomical Collection Method Collection Time Receive d Time (Source) Location / / Volume Laterality Blood (Blood, 07/02/2018 5:23 AM 07/03/19 19 8:30 Venous) CDT AM CDT Oralia Ricks APRN, C.N.P. LAB BLOOD ADD-ON Performing Organization Address City/[facility]/ZIP Code Phon e Number [facility] LABORATORIES - [address] [place], [place] [address] [facility] (ABNORMAL) APTT (Activated Partial Thromboplastin Time) (07/02/2018 5:23 AM CDT) Patholo gist Method Time Signature Activated 115 (H) 25 - 37 07/02/2018 [facility] Partial sec 6:04 AM CDT LABORATORIES - Thrombopl [facility] Time, CAMPUS Specimen Anatomical Collection Method Collection Time Receive d Time (Source) Location / / Volume Laterality Blood (Blood, 07/02/2018 5:23 AM 07/03/19 19 5:34 Venous) CDT AM CDT Douglas Pham LAB BLOOD ADD-ON Performing Organization Address City/[facility] Phon e Number [facility] LABORATORIES - [address] [place] [address] [facility] (ABNORMAL) Prothrombin Time (PT/INR) (07/02/2018 5:23 AM CDT) [facility] Time Signature Prothrombin 14.2 (H) 9.4 - 07/02/2018 [facility] Time, P 12.5 sec 5:51 AM CDT LABORATORIES - [facility] INR 1.3 0.9 - 1.1 07/02/2018 [facility] 5:51 AM CDT LABORATORIES - [facility] Comment: ----ADDITIONAL INFORMATION---- Standard intensity warfarin therapeutic range: 2.0 to 3.0 ?? High intensity warfarin therapeutic rang e: 2.5 to 3.5 Specimen Anatomical Collection Method Collection Time Receive d Time (Source) Location / / Volume Laterality Blood (Blood, 07/02/2018 5:23 AM 07/03/19 19 5:34 Venous) CDT AM CDT Oralia Ricks APRN, C.N.P. LAB BLOOD ADD-ON Performing Organization Address City/[facility] Phon e Number [facility] LABORATORIES - [address] [place], [place] [address] [facility] (ABNORMAL) CBC without Differential (07/02/2018 5:23 AM CDT) [facility] Method Time Signature Hemoglobin 13.6 11.6 - 07/02/2018 [facility] 15.0 g/dL 5:43 AM CDT LABORATORIES - [facility] Hematocrit 42.7 35.5 - 07/02/2018 [facility] 44.9 % 5:43 AM CDT LABORATORIES - [facility] Erythrocytes 4.87 3.92 - 07/02/2018 [facility] 5.13 5:43 AM CDT LABORATORIES - x10(12)/L [facility] MCV 87.7 78.2 - 07/02/2018 [facility] 97.9 fL 5:43 AM CDT LABORATORIES - [facility] [place] RBC Distrib 14.1 12.2 - 07/02/2018 [facility] Width 16.1 % 5:43 AM CDT LABORATORIES - [facility] [place] Platelet Count 511 (H) 157 - 371 07/02/2018 [facility] x10(9)/L 5:43 AM CDT LABORATORIES - [facility] [place] Leukocytes 9.2 3.4 - 9.6 07/02/2018 [facility] x10(9)/L 5:43 AM CDT LABORATORIES - [facility] [place] Specimen Anatomical Collection Method Collection Time Receive d Time (Source) Location / / Volume Laterality Blood (Blood, 07/02/2018 5:23 AM 07/03/19 19 5:34 Venous) CDT AM CDT Oralia Ricks APRN, C.N.P. LAB BLOOD ADD-ON Performing Organization Address City/State/ZIP Code Phon e Number [facility] - [address], [place] [address] [facility] [place] (ABNORMAL) Basic Metabolic Panel (07/02/2018 5:23 AM CDT) [place] [facility] gist Method Time Signature Potassium, S 3.6 3.6 - 5.2 07/02/2018 [facility] mmol/L 6:59 AM CDT LABORATORIES - [facility] Sodium, S 135 135 - 145 07/02/2018 [facility] mmol/L 6:59 AM CDT LABORATORIES - [facility] Chloride, S 97 (L) 98 - 107 07/02/2018 [facility] mmol/L 6:59 AM CDT LABORATORIES - [facility] Bicarbonate, S 23 22 - 29 07/02/2018 [facility] mmol/L 6:59 AM CDT LABORATORIES - [facility] Anion Gap 15 7 - 15 07/02/2018 [facility] 6:59 AM CDT LABORATORIES - [facility] BUN (Blood Urea 17 6 - 21 07/02/2018 [facility] Nitrogen), S mg/dL 6:59 AM CDT LABORATORIES - [facility] Creatinine 0.96 0.59 - 07/02/2018 [facility] 1.04 mg/dL 6:59 AM CDT LABORATORIES - [facility] eGFR-Non 64 >=60 07/02/2018 [facility] Black/ mL/min/BSA 6:59 AM CDT LABORATORIES - [facility] Comment: ----ADDITIONAL INFORMATION---- Estimated GFR calculated using the 2009 CKD_EPI creatinine equation. eGFR-Black/ 74 >=60 mL/min/BSA 07/02/2018 6:59 [facility] Cambodian AM CDT LABORATORIES - [facility] Comment: ----ADDITIONAL INFORMATION---- Estimated GFR calculated using the 2009 CKD_EPI creatinine equation. Calcium, Total, S 9.0 8.8 - 10.2 07/02/2018 6:59 AM [facility] mg/dL CDT LABORATORIES - [facility] S Glucose, S 163 (H) 70 - 140 mg/dL 07/02/2018 6:59 AM [facility] CDT LABORATORIES - [facility] Specimen Anatomical Collection Method Collection Time Receive d Time (Source) Location / / Volume Laterality Blood (Blood, 07/02/2018 5:23 AM 07/03/19 19 5:34 Venous) CDT AM CDT Amrita Carr APRNP. LAB BLOOD ADD-ON Performing Organization Address City/[facility] Code Phon e Number [facility] LABORATORIES - [address] [address] [facility] (ABNORMAL) APTT (Activated Partial Thromboplastin Time) (07/01/2018 10:04 PM CDT) Analysis Performed At Patho logist Time Signature Activated 39 (H) 25 - 37 07/01/2018 [facility] Partial sec 10:35 PM CDT [facility] Specimen Anatomical Collection Method Collection Time Receive d Time (Source) Location / / Volume Laterality Blood (Blood, 07/01/2018 10:04 07/01/2018 Venous) PM CDT 10:21 PM CDT Douglas Pham LAB BLOOD ADD-ON Performing Organization Address City/[facility] Code Phon e Number [facility] LABORATORIES - [address] [address] [facility] Glucose, POCT (07/01/2018 9:49 PM CDT) P athologist Signature Glucose, POCT, 118 70 - 140 07/01/2018 [facility] B mg/dL 9:52 PM CDT SERVICES Specimen Anatomical Collection Method Collection Time Receive d Time (Source) Location / / Volume Laterality Blood 07/01/2018 9:49 PM 9 9:52 CDT PM CDT Unknown Provider LAB POCT ORDERABLES-MANUAL Performing Organization Address City/[facility]/ZIP Code Phon e Number POC [facility] LAB SERVICES [address] [place] [address] (ABNORMAL) APTT (Activated Partial Thromboplastin Time) (07/01/2018 9:12 PM CDT) Analysis Performed At Path logist Time Signature Activated 20 (L) 25 - 37 07/01/2018 [facility] Partial sec 10:53 PM CDT LABORATORIES - Thrombopl [facility] Specimen Anatomical Collection Method Collection Time Receive d Time (Source) Location / / Volume Laterality Blood (Blood, 07/01/2018 9:12 PM 07/02/19 19 Venous) CDT 10:10 PM CDT Douglas Pham LAB BLOOD ADD-ON Performing Organization Address City/[facility]/ZIP [facility] Phon e Number [facility] LABORATORIES - [address], [place] [address] [facility] Glucose, POCT (07/01/2018 5:34 PM CDT) Analysis Performed At [facility] logist Time Signature Glucose, POCT, [...] Provider LAB POCT ORDERABLES-MANUAL Performing Organization Address City/[facility]/ZIP Code Phon e Number POC [facility] LAB SERVICES [address] [place] [address] (ABNORMAL) Prothrombin Time (PT/INR) (07/01/2018 1:55 PM CDT) Patholo gist Method Time Signature Prothrombin 17.6 (H) 9.4 - 07/01/2018 [facility] Time, P 12.5 sec 2:21 PM CDT LABORATORIES - [facility] INR 1.6 0.9 - 1.1 07/01/2018 [facility] 2:21 PM CDT LABORATORIES - [facility] Comment: ----ADDITIONAL INFORMATION---- Standard intensity warfarin therapeutic range: 2.0 to 3.0 ?? High intensity warfarin therapeutic rang e: 2.5 to 3.5 Specimen Anatomical Collection Method Collection Time Receive d Time (Source) Location / / Volume Laterality Blood (Blood, 07/01/2018 1:55 PM 07/02/19 19 2:02 Venous) CDT PM CDT Oralia Ricks APRN CEdilmaN.PEdilma LAB BLOOD ADD-ON Performing Organization Address City/State/ZIP Code Phon e Number [facility] LABORATORIES - [address], [place] [address] [facility] Glucose, POCT (07/01/2018 1:11 PM CDT) Analysis [...] Provider LAB POCT ORDERABLES-MANUAL Performing Organization Address City/[facility] Code Phon e Number [facility] SERVICES [address] [place] [address] (MICHAEL) 2D WITH COLOR, LIMITED DOPPLER AND [...] ic aorta. ??Normally connected pulmonary veins. ??No ufnq-tx-njrpv shunt at atrial level. ??A gitated saline injection(s) performed during sedation. No gkvpo-yp-cdfm shunt at atrial level. ??Pericardial effusion. ??PROCEDURE ??Transesophageal echocardiogram performed at the request of the primary health services director. ??Adult probe inserted without difficulty. [...] Narrator or other pertinent rec ord in [facility] for additional procedure and sedation information. [...] ic aorta. Normally connected pulmonary veins. No nbkt-fb-mrboi shunt at atrial level. Michelle tated saline injection(s) performed during sedation. No vqhco-ir-smcr shunt at atrial level. Pericardial effusion. PROCEDURE Transesophageal echocardiogram performed at the request of the primary health services director. Adult probe inserted without difficulty. Procedure p [...] Narrator or other pertinent rec ord in [facility] for additional procedure and sedation information. Transesophageal echocardiog perry completed without complications. For the complete report, see the Order-L evel Documents below. See PDF For Result Douglas Pham CV ECHO PROCEDURES ECG 12 Lead STAT PRN (07/01/2018 9:44 AM CDT) [facility] Method Time Signature Ventricular 137 BPM MUSE Rate ECG/Min VA Interval 244 ms MUSE QRSD Interval 64 ms MUSE QT Interval 364 ms MUSE QTC Interval 549 ms MUSE P Cubero 17 degrees MUSE R Cubero 102 degrees MUSE T Wave Cubero -143 degrees MUSE CODED DIAGNOSIS Atrial MUSE [...] CDT) P athologist Signature Microscopy Abnormal 07/01/2018 [facility] 1:34 PM CDT LABORATORIES - [facility] RBC <3 <3 /hpf 07/01/2018 [facility] 1:34 PM CDT LABORATORIES - [facility] WBC 1-3 /hpf 07/01/2018 [facility] 1:34 PM CDT LABORATORIES - [facility] Comment: ----REFERENCE VALUE---- 1-3 ??(Males) 1-10 (Females) Casts, Hyaline 4-10 /lpf 07/01/2018 1:34 PM [facility] - [facility] Casts, Granular Occas (A) /lpf 07/01/2018 1:34 PM [facility] CDT LABORATORIES [facility] S Fat, Free Occas (A) /hpf 07/01/2018 1:34 PM [facility] CDT LABORATORIES [facility] Squamous Epithelial 4-10 /hpf 07/01/2018 1:34 PM [facility] Cells, U CDT LABORATORIES [facility] Bacteria Present (A) 07/01/2018 1:34 PM [facility] IC CDT LABORATORIES - [facility] Specimen Anatomical Collection Method Collection Time Receive d Time (Source) Location / / Volume Laterality Urine 07/01/2018 9:28 AM 9 CDT 12:00 PM CDT Antelmo Richey P.A.-C. LAB URINE ORDERABLES Performing Organization Address City/[facility]/ZIP Code Phon e Number [facility] LABORATORIES - [address], [place] [address] [facility] (ABNORMAL) Urinalysis with Microscopic (07/01/2018 9:28 AM CDT) Patholo gist Method Time Signature Source Midstream 07/01/2018 [facility] 12:00 PM CDT LABORATORIES [facility] Appearance Normal Normal 07/01/2018 [facility] 12:25 PM CDT LABORATORIES [facility] Osmolality, U 652 150 - 1150 07/01/2018 [facility] mOsm/kg 1:10 PM CDT LABORATORIES [facility] pH, U 5.7 4.5 - 8.0 07/01/2018 [facility] 1:10 PM CDT [facility] Comment: ----ADDITIONAL INFORMATION---- This test was developed and its performa nce characteristics determined by [facility] in a manner co nsistent with CLIA requirements. This test has not bee n cleared or approved by the U.S. Food and Drug Admin istration. Glucose 8 0 - 15 mg/dL 07/01/2018 12:25 PM CDT [facility] Protein, U 40 (H) <26 mg/dL 07/01/2018 12:25 PM CDT [facility] Comment: ----ADDITIONAL INFORMATION---- On 09/17/2016 the total protein assay me thod changed resulting in approximately a 15% increase in prote in values. Protein/Osmolality 0.61 (H) <0.42 Ratio 07/01/2018 1:10 PM [facility] CDT [facility] Comment: ----ADDITIONAL INFORMATION---- On 09/17/2016 the total protein assay me thod changed resulting in approximately a 15% increase in prote in values. Predicted 24 Hr 429 mg/24 h 07/01/2018 1:10 PM [facility] Protein T [facility] Predicted Range 106-1738 mg/24 h 07/01/2018 1:10 PM [facility] Hemoglobin, QL Negative Negative 07/01/2018 12:54 PM [facility] CDT [facility] Specimen Anatomical Collection Method Collection Time Receive d Time (Source) Location / / Volume Laterality Urine (Urine, 07/01/2018 9:28 AM 07/02/19 19 Clean Catch) CDT 12:00 PM CDT Antelmo Richey P.A.-C. LAB URINE ORDERABLES Performing Organization Address City/State/ZIP Code Phon e Number [facility] - [address] [place], [place] [address] [facility] Glucose, POCT (07/01/2018 5:51 AM CDT) Analysis Performed At Patho logist Time Signature Glucose, POCT, 115 70 - 140 07/01/2018 [facility] B mg/dL 5:52 AM CDT SERVICES Site Capillary 07/01/2018 [facility] 5:52 AM CDT SERVICES Last Intake 3-4 hours 07/01/2018 POC [facility] LAB 5:52 AM CDT SERVICES Specimen Anatomical Collection Method Collection Time Receive d Time (Source) Location / / Volume Laterality Blood 07/01/2018 5:51 AM 9 5:53 CDT AM CDT Unknown Provider LAB POCT ORDERABLES-MANUAL Performing Organization Address City/State/ZIP Code Phon e Number POC [facility] LAB SERVICES [address] [place] [address] (ABNORMAL) Basic Metabolic Panel (07/01/2018 5:50 AM CDT) [facility] gist Method Time Signature Potassium, S 5.1 3.6 - 5.2 07/01/2018 [facility] mmol/L 6:49 AM CDT LABORATORIES - [facility] Sodium, S 138 135 - 145 07/01/2018 [facility] mmol/L 6:49 AM CDT LABORATORIES - [facility] Chloride, S 99 98 - 107 07/01/2018 [facility] mmol/L 6:49 AM CDT LABORATORIES - [facility] Bicarbonate, S 26 22 - 29 07/01/2018 [facility] mmol/L 6:49 AM CDT LABORATORIES - [facility] Anion Gap 13 7 - 15 07/01/2018 [facility] 6:49 AM CDT LABORATORIES - [facility] BUN (Blood 21 6 - 21 07/01/2018 [facility] Urea mg/dL 6:49 AM CDT LABORATORIES - Nitrogen), S [facility] Creatinine 1.14 (H) 0.59 - 07/01/2018 [facility] 1.04 6:49 AM CDT LABORATORIES - mg/dL [facility] eGFR-Non 52 (L) >=60 07/01/2018 [facility] Black/ mL/min/BS 6:49 AM CDT LABORATORIES - Camb[place]ian A [facility] Comment: ----ADDITIONAL INFORMATION---- Estimated GFR calculated using the 2009 CKD_EPI creatinine equation. eGFR-Black/ 60 >=60 mL/min/BSA 07/01/2018 6:49 [facility] Cambodian AM CDT LABORATORIES - [facility] Comment: ----ADDITIONAL INFORMATION---- Estimated GFR calculated using the 2009 CKD_EPI creatinine equation. Calcium, Total, S 9.4 8.8 - 10.2 mg/dL 07/01/2018 6:49 AM [facility] CDT LABORATORIES - [facility] S Glucose, S 121 70 - 140 mg/dL 07/01/2018 6:49 AM [facility] CDT LABORATORIES - [facility] S Specimen Anatomical Collection Method Collection Time Receive d Time (Source) Location / / Volume Laterality Blood (Blood, 07/01/2018 5:50 AM 07/02/19 19 6:13 Venous) CDT AM CDT Antelmo Richey P.A.-C. LAB BLOOD ADD-ON Performing Organization Address City/State/ZIP Code Phon e Number [facility] LABORATORIES - [address], [place] [address] [facility] Glucose, POCT (06/30/2018 9:38 PM CDT) Analysis Performed At Path logist Time Signature Glucose, POCT, 129 70 - 140 06/30/2018 [facility] B mg/dL 10:01 PM CDT SERVICES [...] Address City/State/ZIP Code Phon e Number POC [facility] SERVICES [address] [place] [address] ECG 12 Lead (06/30/2018 8:54 PM CDT) [facility] gist Method Time Signature Ventricular 64 BPM MUSE Rate ECG/Min VA Interval 156 ms MUSE QRSD Interval 86 ms MUSE QT Interval 456 ms MUSE QTC Interval 470 ms MUSE P Cubero 56 degrees MUSE R Cubero 109 degrees MUSE T Wave Cubero 68 degrees MUSE CODED DIAGNOSIS Atrial MUSE [...] Provider LAB POCT ORDERABLES-MANUAL Performing Organization Address [facility] Phon e Number [facility] SERVICES [address] [place] [address] Glucose, POCT (06/30/2018 11:18 AM CDT) Analysis [...] Provider LAB POCT ORDERABLES-MANUAL Performing Organization Address City/[facility]/ZIP Code Phon e Number [facility] SERVICES [address] [place] [address] Basic Metabolic Panel (06/30/2018 6:01 AM CDT) Analysis Performed At Patho logist Time Signature Potassium, S 4.4 3.6 - 5.2 06/30/2018 [facility] mmol/L 6:50 AM CDT [facility] Sodium, S 138 135 - 145 06/30/2018 [facility] mmol/L 6:50 AM CDT LABORATORIES [facility] Chloride, S 100 98 - 107 06/30/2018 [facility] mmol/L 6:50 AM CDT LABORATORIES [facility] Bicarbonate, S 24 22 - 29 06/30/2018 [facility] mmol/L 6:50 AM CDT LABORATORIES [facility] Anion Gap 14 7 - 15 06/30/2018 [facility] 6:50 AM CDT LABORATORIES [facility] BUN (Blood Urea 12 6 - 21 06/30/2018 [facility] Nitrogen), S mg/dL 6:50 AM T [facility] Creatinine 0.82 0.59 - 06/30/2018 [facility] 1.04 mg/dL 6:50 AM T [facility] eGFR-Non 77 >=60 06/30/2018 [facility] Black/ mL/min/BSA 6:50 AM CDT LABORATORIES [facility] Comment: ----ADDITIONAL INFORMATION---- Estimated GFR calculated using the 2009 CKD_EPI creatinine equation. eGFR-Black/ 89 >=60 mL/min/BSA 06/30/2018 6:[address] [facility] Comment: ----ADDITIONAL INFORMATION---- Estimated GFR calculated using the 2009 CKD_EPI creatinine equation. Calcium, Total, S 9.1 8.8 - 10.2 mg/dL 06/30/2018 6:50 AM [facility] CDT [facility] Glucose, S 126 70 - 140 mg/dL 06/30/2018 6:50 AM [facility] Specimen Anatomical Collection Method Collection Time Receive d Time (Source) Location / / Volume Laterality Blood (Blood, 06/30/2018 6:01 AM 07/01/19 19 6:18 Venous) CDT AM CDT Antelmo Richey P.A.-C. LAB BLOOD ADD-ON Performing Organization Address City/State/ZIP Code Phon e Number [facility] LABORATORIES - [address] [place], [place] [address] [facility] (ABNORMAL) CBC with Differential, Blood (06/30/2018 6:01 AM CDT) [facility] Method Time Signature Hemoglobin 13.0 11.6 - 06/30/2018 [facility] 15.0 g/dL 6:26 AM CDT LABORATORIES - [facility] Hematocrit 40.6 35.5 - 06/30/2018 [facility] 44.9 % 6:26 AM CDT LABORATORIES - [facility] Erythrocytes 4.60 3.92 - 06/30/2018 [facility] 5.13 6:26 AM CDT LABORATORIES - x10(12)/L [facility] MCV 88.3 78.2 - 06/30/2018 [facility] 97.9 fL 6:26 AM CDT LABORATORIES [facility] RBC Distrib 13.8 12.2 - 06/30/2018 [facility] Width 16.1 % 6:26 AM CDT LABORATORIES - [facility] Platelet Count 451 (H) 157 - 371 06/30/2018 [facility] x10(9)/L 6:26 AM CDT LABORATORIES - [facility] Leukocytes 9.8 (H) 3.4 - 9.6 06/30/2018 [facility] x10(9)/L 6:26 AM CDT LABORATORIES - [facility] Neutrophils 5.28 1.56 - 06/30/2018 [facility] 6.45 6:26 AM CDT LABORATORIES - x10(9)/L [facility] Lymphocytes 2.89 0.95 - 06/30/2018 [facility] 3.07 6:26 AM CDT LABORATORIES - x10(9)/L [facility] Monocytes 1.29 (H) 0.26 - 06/30/2018 [facility] 0.81 6:26 AM CDT LABORATORIES - x10(9)/L [facility] Eosinophils 0.19 0.03 - 06/30/2018 [facility] 0.48 6:26 AM CDT LABORATORIES - x10(9)/L [facility] Basophils 0.10 (H) 0.01 - 06/30/2018 [facility] 0.08 6:26 AM CDT LABORATORIES - x10(9)/L [facility] Specimen Anatomical Collection Method Collection Time Receive d Time (Source) Location / / Volume Laterality Blood (Blood, 06/30/2018 6:01 AM 07/01/19 19 6:18 Venous) CDT AM CDT Antelmo Richey P.A.-C. LAB BLOOD ADD-ON Performing Organization Address City/[facility]/ZIP Code Phon e Number [facility] LABORATORIES - [address], [place] [address] [facility] Glucose, POCT (06/30/2018 6:00 AM CDT) Analysis Performed At Patho logist Time Signature Glucose, POCT, 133 70 - 140 06/30/2018 [facility] B mg/dL 6:30 AM CDT SERVICES Site Capillary 06/30/2018 [facility] 6:30 AM CDT SERVICES Specimen Anatomical Collection Method Collection Time Receive d Time (Source) Location / / Volume Laterality Blood 06/30/2018 6:00 AM 9 6:31 CDT AM CDT Unknown Provider LAB POCT ORDERABLES-MANUAL Performing Organization Address City/[facility]/ZIP Code Phon e Number POC [facility] LAB SERVICES [address] [place] [address] Magnesium (06/30/2018 5:57 AM CDT) P athologist Signature Magnesium, S 1.8 1.7 - 2.3 06/30/2018 [facility] mg/dL 10:59 AM CDT LABORATORIES - [facility] Specimen Anatomical Collection Method Collection Time Receive d Time (Source) Location / / Volume Laterality Blood (Blood, 06/30/2018 5:57 AM 07/01/19 19 Venous) CDT 10:36 AM CDT Antelmo Richey P.A.-C. LAB BLOOD ADD-ON Performing Organization Address City/[facility]/ZIP Code Phon e Number [facility] LABORATORIES - [address], [place] [address] [facility] DX Chest AP or PA and Lateral [...] Total Iron-Binding Capacity (06/29/2018 7:25 PM CDT) [facility] Method Time Signature Iron 89 35 - 145 06/29/2018 [facility] mcg/dL 8:45 PM CDT [facility] Total Iron 505 (H) 250 - 400 06/29/2018 [facility] Binding mcg/dL 8:46 PM CDT LABORATORIES [facility] Percent 18 14 - 50 % 06/29/2018 [facility] Saturation 8:46 PM CDT [facility] Specimen Anatomical Collection Method Collection Time Receive d Time (Source) Location / / Volume Laterality Blood (Blood, 06/29/2018 7:25 PM 06/30/19 19 7:49 Venous) CDT PM CDT Alysha Charles P.A.-C. LAB BLOOD ADD-ON Performing Organization Address City/State/ZIP Code Phon e Number [facility] LABORATORIES - [address] [place], [place] [address] [facility] Lipid Panel (06/29/2018 7:25 PM CDT) P athologist Signature Cholesterol, 156 mg/dL 06/29/2018 [facility] Total 8:45 PM CDT LABORATORIES [facility] Comment: ----REFERENCE VALUE---- Desirable: < 200 Borderline high: 200 - 239 High: > or = 240 Triglycerides 127 mg/dL 06/29/2018 8:45 PM CDT [facility] Comment: ----REFERENCE VALUE---- Normal: <150 Borderline high: 150-199 High: 200-499 Very high: > or =500 Cholesterol, HDL, S 56 >=50 mg/dL 06/29/2018 8:[address] [facility] Calculated LDL 75 mg/dL 06/29/2018 8:45 PM CDT [facility] Comment: ----REFERENCE VALUE---- Desirable: <100 Above Desirable: 100-129 Borderline high: 130-159 High: 160-189 Very high: > or =190 Cholesterol, Non-HDL, 100 mg/dL 06/29/2018 8:4 5 PM CDT [facility] Comment: ----REFERENCE VALUE---- Desirable: <130 Above Desirable: 130-159 Borderline high: 160-189 High: 190-219 Very high: > or =220 Specimen Anatomical Collection Method Collection Time Receive d Time (Source) Location / / Volume Laterality Blood (Blood, 06/29/2018 7:25 PM 06/30/19 19 7:49 Venous) CDT PM CDT Alysha Charles P.A.-C. LAB BLOOD ADD-ON Performing Organization Address City/State/ZIP Code Phon e Number [facility] LABORATORIES - [address], [place] [address] [facility] Prothrombin Time (PT/INR) (06/29/2018 7:25 PM CDT) [facility] Method Time Signature Prothrombin 12.2 9.4 - 12.5 06/29/2018 [facility] Time, P sec 8:08 PM CDT [facility] INR 1.1 0.9 - 1.1 06/29/2018 [facility] 8:08 PM CDT [facility] Comment: ----ADDITIONAL INFORMATION---- Standard intensity warfarin therapeutic range: 2.0 to 3.0 ?? High intensity warfarin therapeutic rang e: 2.5 to 3.5 Specimen Anatomical Collection Method Collection Time Receive d Time (Source) Location / / Volume Laterality Blood (Blood, 06/29/2018 7:25 PM 06/30/19 19 7:49 Venous) CDT PM CDT Alysha Charles P.A.-C. LAB BLOOD ADD-ON Performing Organization Address City/State/ZIP Code Phon e Number [facility] - [address] [place], [place] [address] [facility] (ABNORMAL) CBC with Differential, Blood (06/29/2018 7:25 PM CDT) [facility] Method Time Signature Hemoglobin 13.6 11.6 - 06/29/2018 [facility] 15.0 g/dL 7:55 PM CDT LABORATORIES - [facility] Hematocrit 43.1 35.5 - 06/29/2018 [facility] 44.9 % 7:55 PM CDT LABORATORIES - [facility] Erythrocytes 4.92 3.92 - 06/29/2018 [facility] 5.13 7:55 PM CDT LABORATORIES - x10(12)/L [facility] MCV 87.6 78.2 - 06/29/2018 [facility] 97.9 fL 7:55 PM CDT LABORATORIES - [facility] RBC Distrib 13.9 12.2 - 06/29/2018 [facility] Width 16.1 % 7:55 PM CDT LABORATORIES - [facility] Platelet Count 524 (H) 157 - 371 06/29/2018 [facility] x10(9)/L 7:55 PM CDT LABORATORIES - [facility] Leukocytes 10.8 (H) 3.4 - 9.6 06/29/2018 [facility] x10(9)/L 7:55 PM CDT LABORATORIES - [facility] Neutrophils 7.29 (H) 1.56 - 06/29/2018 [facility] 6.45 7:55 PM CDT LABORATORIES - x10(9)/L [facility] Lymphocytes 2.21 0.95 - 06/29/2018 [facility] 3.07 7:55 PM CDT LABORATORIES - x10(9)/L [facility] Monocytes 1.12 (H) 0.26 - 06/29/2018 [facility] 0.81 7:55 PM CDT LABORATORIES - x10(9)/L [facility] Eosinophils 0.10 0.03 - 06/29/2018 [facility] 0.48 7:55 PM CDT LABORATORIES - x10(9)/L [facility] Basophils 0.10 (H) 0.01 - 06/29/2018 [facility] 0.08 7:55 PM CDT LABORATORIES - x10(9)/L [facility] Specimen Anatomical Collection Method Collection Time Receive d Time (Source) Location / / Volume Laterality Blood (Blood, 06/29/2018 7:25 PM 06/30/19 19 7:49 Venous) CDT PM CDT Alysha Charles P.A.-C. LAB BLOOD ADD-ON Performing Organization Address City/[facility]/ZIP Code Phon e Number [facility] - [address] [phone] [facility] (ABNORMAL) S-TSH (Thyroid-Stimulating Hormone - Sensitive) (06/29/2018 7:25 PM CDT) Patholo gist Method Time Signature TSH, Sensitive 4.8 (H) 0.3 - 4.2 06/29/2018 [facility] mIU/L 8:45 PM CDT LABORATORIES [facility] Specimen Anatomical Collection Method Collection Time Receive d Time (Source) Location / / Volume Laterality Blood (Blood, 06/29/2018 7:25 PM 06/30/19 19 7:49 Venous) CDT PM CDT Alysha Charles P.A.-C. LAB BLOOD ADD-ON Performing Organization Address City/[facility] Code Phon e Number [facility] - [address] [phone] [facility] (ABNORMAL) NT-Pro B-Type Natriuretic Peptide (BNP) (06/29/2018 7:25 PM CDT) P athologist Signature NT-Pro BNP 5956 (H) <=177 06/29/2018 [facility] pg/mL 8:45 PM CDT LABORATORIES [facility] Comment: NT-proBNP values less than 300 pg/mL [...] Address City/State/ZIP Code Phon e Number [facility] - [address] [employer], [place] [address] [facility] Magnesium (06/29/2018 7:25 PM CDT) P athologist Signature Magnesium, S 1.8 1.7 - 2.3 06/29/2018 [facility] mg/dL 8:45 PM CDT LABORATORIES - [facility] Specimen Anatomical Collection Method Collection Time Receive d Time (Source) Location / / Volume Laterality Blood (Blood, 06/29/2018 7:25 PM 06/30/19 19 7:49 Venous) CDT PM CDT Alysha Charles P.A.-C. LAB BLOOD ADD-ON Performing Organization Address City/[facility] Code Phon e Number [facility] - [address] [phone] [facility] (ABNORMAL) Comprehensive Metabolic Panel (06/29/2018 7:25 PM CDT) Patholo gist Method Time Signature Potassium, S 4.7 3.6 - 5.2 06/29/2018 [facility] mmol/L 8:45 PM CDT LABORATORIES - [facility] Sodium, S 136 135 - 145 06/29/2018 [facility] mmol/L 8:45 PM CDT LABORATORIES - [facility] Chloride, S 100 98 - 107 06/29/2018 [facility] mmol/L 8:45 PM CDT LABORATORIES - [facility] Bicarbonate, S 18 (L) 22 - 29 06/29/2018 [facility] mmol/L 8:45 PM CDT LABORATORIES - [facility] Anion Gap 18 (H) 7 - 15 06/29/2018 [facility] 8:45 PM CDT LABORATORIES [facility] BUN (Blood Urea 15 6 - 21 06/29/2018 [facility] Nitrogen), S mg/dL 8:45 PM CDT LABORATORIES [facility] Creatinine 0.81 0.59 - 06/29/2018 [facility] 1.04 mg/dL 8:45 PM CDT LABORATORIES [facility] eGFR-Non 79 >=60 06/29/2018 [facility] Black/ mL/min/BSA 8:45 PM T LABORATORIES [facility] Comment: ----ADDITIONAL INFORMATION---- Estimated GFR calculated using the 2009 CKD_EPI creatinine equation. eGFR-Black/ >90 >=60 mL/min/BSA 06/29/2018 8:45 [facility] Comment: ----ADDITIONAL INFORMATION---- Estimated GFR calculated using the 2009 CKD_EPI creatinine equation. Calcium, Total, S 9.7 8.8 - 10.2 06/29/2018 8:45 PM [facility] mg/dL T [facility] Glucose, S 123 70 - 140 mg/dL 06/29/2018 8:45 PM [facility] Protein, Total, S 7.2 6.3 - 7.9 g/dL 06/29/2018 8:45 P M [facility] Albumin, S 4.0 3.5 - 5.0 g/dL 06/29/2018 8:46 PM [facility] Aspartate 20 8 - 43 U/L 06/29/2018 9:24 PM [facility] Aminotransferase (AST), S T LABO RATORIES [facility] Alkaline Phosphatase, S 83 35 - 104 U/L 06/29/2018 8: 45 PM [facility] Alanine Aminotransferase 25 7 - 45 U/L 06/29/2018 10: 54 [facility] (ALT), S PM [facility] Bilirubin, Total, S 0.7 <=1.2 mg/dL 06/29/2018 8:45 PM [facility] Specimen Anatomical Collection Method Collection Time Receive d Time (Source) Location / / Volume Laterality Blood (Blood, 06/29/2018 7:25 PM 06/30/19 19 7:49 Venous) CDT PM CDT Alysha Charles P.A.-C. LAB BLOOD ADD-ON Performing Organization Address City/State/ZIP Code Phon e Number [facility] - [address] [place], [place] [address] [facility] ECG 12 Lead (06/29/2018 6:26 PM CDT) [facility] gist Method Time Signature Ventricular 148 BPM MUSE Rate ECG/Min QRSD Interval 88 ms MUSE QT Interval 350 ms MUSE QTC Interval 549 ms MUSE P Cubero -118 degrees MUSE R Cubero 96 degrees MUSE T Wave Cubero 4 degrees MUSE CODED DIAGNOSIS Atrial MUSE [...] Diagnoses Diagnosis Flutter Atrial (HCC) - Primary Flutter Atrial (HCC) Decline Functional Status Fatigue Chronic Hypertensive Heart [...] to first administration for fever, Starting on 4/8/19 at 1816 Given 07/06/2018 12:44 AM CDT [...] 60 mg 60 mg, oral, Once, On Fri07/02/18 at 1845, For 1 dose docusate sodium [...] to 13.3 mL/hr), intravenous, Continuous, Starting on Fri07/02/18 at 0900, Premix ba,000 Units in 250 [...] 5 mg 5 mg, oral, Once, On 07/01/18 at 1700, For 1 dose warfarin tablet [...] 7.5 mg 7.5 mg, oral, Once, On 07/03/18 at 1700, For 1 dose documented in this encounter Active and Recently Administered Medications Times are shown in CDT. Scheduled Medication Order 07/04/2018 07/05/2018 07/06/2018 dilTIAZem 24 hr capsule 240 mg (DILACOR XR/DILT-XR) 08 24 (Given - Provider: Juany Callaway R.N.) 08 (Given - Provider: Juany Callaway RManjeet.) 0853 (Given - Provider: Jessica Dominguez R.NEdilma) 240 mg, oral, Daily, First dose (after l ast modification) on Fri07/03/18 at 0900, Swallow whole. Do NOT crush, chew or open capsule. DULoxetine DR capsule 30 mg (CYMBALTA) 0824 (Given - P rovider: Juany Callaway REdilmaNEdilma)2103 (Given - Provider: Rosemarie Han R.N.) 08 (Given - Provider: Juany Callaway R.N.)2113 (Given - Provider: Renetta Carney REdilmaNEdilma) 0854 (Given - Provider: Jessica baird R.NEdilma) 30 mg, oral, 2 times daily, First dose o n 06/29/18 at 2100, See tube feeding guidelines for [...] clearance factors. estradiol tablet 1 mg (ESTRACE) 0824 (Given - Provider : Juany Callaway R.N.) 08 (Given - Provider: Moise MitchellN.) 08 54 (Given - Provider: Moise JonesNEdilma) 1 mg, oral, Daily, First dose on Fri06/30/18 [address] tablet 65 mg of iron 823 (Given - Provider: Moise MitchellNEdilma) 818 (Given - Provider: Moise MitchellNEdilma) 08 53 (Given - Provider: Jessica Dominguez REdilmaNEdilma) 65 mg of iron, oral, Daily, First dose o n Fri06/30/18 at 0900, 325 mg contains 65 mg of elemental iron. Swallow whole. Do NOT crush, chew, or split tablet. fluticasone furoate 100 mcg/actuation inhaler 1 puff ( ARNUITY ELLIPTA) 0828 (Given - Provider: Moise MitchellNEdilma) 08 (Given - Provider: Moise MitchellN.) 0859 (Given - Provider: Jessica baird R.N.) 1 puff, inhalation, Daily, First dose on Fri06/30/18 at 0900, Rinse mouth with water after use to reduce aftertaste and incidence of candidiasis. Do not swallow. losartan tablet 50 mg (COZAAR) 0824 (Given - Provider: Moise MitchellNEdilma) 0819 (Given - Provider: Moise MitchellN.) 08 53 (Given - Provider: Moise JonesNEdilma) 50 mg, oral, Daily, First dose on Fri07/04/18 at 0900 magnesium sulfate in water IVPB 2 g (COMPLETED) 1123 (New Bag - Provider: Juany Callaway REdilmaNEdilma) 2 g, intravenous, at 25 mL/hr, Administe r over 120 Minutes, Once, On 07/05/18 at 1115, For 1 dose, premix bag metoprolol tartrate tablet 100 mg (LOPRESSOR) 08 (Gi justo - Provider: Juany Callaway RMary Ann)2103 (Given - Provider: Moise BarnettN.) 818 (Given - Provider: Juany Callaway R.N.)2113 (Given - Provider: Renetta Carney R.N.) 0853 (Given - Provider: Jessica baird R.NEdilma) 100 mg, oral, 2 times daily, First dose (after last modification) on Jany 07/02/[address] tablet 40 mg (PROTONIX) 08 (Given - Provider: Juany Callaway RMary Ann) 0659 (Given - Provider: Renetta Carney R.N.) 06 (G iven - Provider: Renetta Carney R.N.) 40 mg, oral, Daily before breakfast, Fir st dose on Fri06/30/18 at 0700, Swallow whole. Do NOT crush, chew, or split tablet. pravastatin tablet 40 mg (PRAVACHOL) 2103 (Given - Pro vider: Rosemarie Han REdilmaNEdilma) 2113 (Given - Provider: Renetta Carney R.N.) 40 mg, oral, Daily at bedtime, First dos e on 06/29/18 at 2100, pravastatin 40 mg oral daily was interchanged for simvastatin 20 mg oral daily sodium chloride 0.9 % injection 3 mL 829 (Given - Pro vider: Juany Callaway REdilmaNEdilma)2104 (Given - Provider: Moise BarnettNEdilma) 08 (Given - Provider: Juany Callaway REdilmaNEdilma)2113 (Given - Provider: Renetta Carney R.N.) 0859 (Given - Provider: Jessica baird REdilmaNEdilma) 3 mL, intravenous, Every 12 hours schedu led, First dose on Fri06/29/18 at 2100, Peripheral Intravenous Catheter and Rapid Infusion Catheter, when no infusion to maintain patency topiramate tablet 25 mg (TOPAMAX) 0825 (Given - Provid er: Juany Callaway R.N.)2103 (Given - Provider: Rosemarie Han R.N.) 08 (Given - Provider: Juany Callaway R.N.)2113 (Given - Provider: Renetta Carney R.N.) 0853 (Given - Provider: Jessica baird REdilmaNEdilma) 25 mg, oral, 2 times daily, First [...] dose warfarin tablet 5 mg (COUMADIN) (COMPLETED) 1625 (Give n - Provider: Juany Callaway R.N.) 5 mg, oral, Once, On 07/04/18 at 1700, For 1 dose PRN Medication Order 07/04/2018 07/05/2018 07/06/2018 acetaminophen tablet 1,000 mg (TYLENOL) 0420 (Given - Provider: Rosita Emerson R.N.) 0158 (Given - Provider: Renetta Carney R.N.)0819 (Given - Provider: Juany Callaway R.N.) 0044 (Given - Provider: Adonay Pablo)0655 (Given - Provider: Renetta Carney, R.N.) 1,000 mg, oral, Every 6 hours [...] mg of calcium, oral, Every 2 hour VA N, indigestion, Not to exceed 12 tablets in 24 hours, Starting Fri06/29/18 at 181, Doses listed are in mg of elemental calcium. Take with food. 500 mg calcium carbonate contains 200 mg of elemental calcium. docusate sodium capsule 100 mg (COLACE) 1145 (Given - Provider: Juany Callaway REdilmaNEdilma) 100 mg, oral, 2 times daily PRN, constip ation, Starting on Fri06/29/18 at 181, Do NOT crush or chew. lidocaine 5 % ointment 1 application (XYLOCAINE) 1 application, mouth/throat, As needed, mild pain or score 1-3 of 10, See protocol, Starting on Fri07/01/18 at 1107, MAX of 20 g of ointment/day methyl salicylate-menthol ointment 1 application (BENGAY) 1952 (Given - Provider: Renetta Carney, REdilmaNEdilma) 1 application, topical, 3 times daily VA N, muscle/joint pain, Starting on Fri06/30/18 at [...] documented as of this encounter Care Teams Perforator Relationship Specialty Start Date End Date Vianney Barrera APRN, C.N.P., PCP - General Internal Medicine 07/06/18 07/26/18 M.S.N. [address] [place] [phone] documented as of this encounter
--- OUTSIDE RECORDS SUMMARY | 2022-01-08 16:42 | XMS_ITS | Encounter Summary ---
:1955 Author Organization [facility] Address [address] [place] [id number] Care Team Providers Name Role Phone Unavailable [...] do you attend confucianism or Never 2018 anabaptist services? Do you [...]
--- OUTSIDE RECORDS SUMMARY | 2022-01-08 16:42 | XMS_ITS | Encounter Summary ---
:1955 Author Organization [facility] Address [address] [place] [id number] Care Team Providers Name Role Phone Unavailable Primary Care Provider Unavailable Encounter Details Date Type Department Care Team Description 05/04/2013 Hospital Encounter HX RST FIBROMYALGIA Verito Collins, NO, C.N.P., D.N.P., M.S. [address] [place] [phone] (Wo rk) Social History Tobacco Use Types [...] do you attend christianity or Never 2018 sabianism services? Do you [...]
--- OUTSIDE RECORDS SUMMARY | 2022-01-08 16:42 | XMS_ITS | Encounter Summary ---
:1955 Author Organization [facility] Address [address] [place] [id number] Care Team Providers Name Role Phone Unavailable [...] do you attend confucianist or Never 2018 zoroastrianism services? Do you [...]
[2022-01-08 17:00] VITALS: BP 141/80; PULSE 74; RESP 18; O2SAT 98
[2022-01-08 17:12] LABS: Basophils Absolute Auto 0.11 K/uL (0.00-0.30); Basophils Percent Auto 1.4 % (0.0-3.0); Eosinophils Absolute Auto 0.34 K/uL (0.00-0.50); Eosinophils Percent Auto 4.2 % (0.0-7.0); Hematocrit 39.1 % (33.0-51.0); Hemoglobin* 12.6 gm/dL (12.0-16.0); Immature Granulocytes Abs Auto 0.01 K/uL (0.00-0.30); Lactate* 1.2 mmol/L (0.5-1.9); Lymphocytes Absolute Auto 2.59 K/uL (0.90-2.90); Lymphocytes Percent Auto 31.8 % (20-44); Mean Corpuscular HGB Conc 32 gm/dL (32-36); Mean Corpuscular Hemoglobin 28 pg (26-34); Mean Corpuscular Volume 87 fL (80-100); Monocytes Percent Auto 8.4 % (0.0-11.0); Neutrophils Absolute Auto 4.41 K/uL (1.7-7.0); Neutrophils Percent Auto 54.1 % (42.0-72.0); Platelet Count* 478 K/uL (140-440); RDW Coefficient of Variation % 13.2 % (11.5-15.5); White Blood Count* 8.14 K/uL (4.50-11.00)
[2022-01-08 17:20] LABS: Slide Review Reflex No
[2022-01-08 17:30] VITALS: BP 137/81; PULSE 74; RESP 18; O2SAT 74
[2022-01-08 17:30] LABS: Albumin* 4.6 g/dL (3.3-5.0); Chloride* 100 mmol/L (96-114)
[2022-01-08 17:31] LABS: Potassium* 3.8 mmol/L (3.6-5.1); Sodium* 138 mmol/L (135-149)
[2022-01-08 17:32] LABS: Lipase* 60 U/L (23-300)
[2022-01-08 17:33] LABS: Bilirubin Total* 0.3 mg/dL (0.1-1.5); Creatinine* 0.9 mg/dL (0.5-1.5); Est. Creatinine Clearance* 51.14; Estimated Glomerular Filt Rate 71 ml/min
[2022-01-08 17:34] LABS: Alanine Aminotransferase* 36 U/L (4-35); Alkaline Phosphatase* 97 U/L (40-150); Aspartate Amino Transferase* 37 U/L (12-35); Blood Urea Nitrogen* 13 mg/dL (7-30); Calcium* 9.1 mg/dL (8.4-10.6); Carbon Dioxide* 29 mmol/L (20-32); Glucose* 96 mg/dL (60-115); Total Protein* 7.8 g/dL (6.0-8.3)
[2022-01-08 17:37] LABS: C Reactive Protein* 0.9 mg/dL (0.5-1.0)
[2022-01-08 17:41] LABS: NT Pro B Type NatriureticPept* 164 PG/mL (0-125)
[2022-01-08 17:56] LABS: SARS PCR* Negative SARS-CoV-2 (Negative)
[2022-01-08 18:00] VITALS: BP 137/81; PULSE 74; RESP 16; O2SAT 99
[2022-01-08 18:04] LABS: D Dimer Quantitative* < 0.27 ug/ml (0.00-0.50)
[2022-01-08] MEDS: GI COCKTAIL (VISC LIDO/ANTACID) 30 ML PO (18:24)
[2022-01-08] MEDS: OMEPRAZOLE 20 MG CAPSULE DR 40 MG PO (18:24)
--- NOTE | 2022-01-08 18:25 | ED.NURSE ---
Report to GAIL Cosme at [place]. She will call staff to provide ride home to patient. No questions/concerns.
== END 2022-01-08 18:44 | disposition home or self-care (01) ==
PROVIDERS: Emergency Provider Family Medicine; PCP Family Medicine
DX: R07.89 Other chest pain (principal); Z95.2 Presence of prosthetic heart valve; Z79.01 Long term (current) use of anticoagulants; Z20.822 Contact with and (suspected) exposure to COVID-19; Z79.1 Long term (current) use of non-steroidal anti-inflammatories (NSAID); Z79.51 Long term (current) use of inhaled steroids
CPT/HCPCS: 36415; 71045; 80053; 83605; 83690; 83880; 85025; 85379; 86140; 87635; 93005; 94761; 99284; 99285; A9270

== ENCOUNTER 2022-02-06 05:39 | Outpatient (CLI) | payer MEDICARE, MEDICAID, SELFPAY ==
--- OUTSIDE RECORDS SUMMARY | 2022-02-26 09:06 | XMS_ITS | Encounter Summary ---
:1955 Author Organization [facility] Address [address] [place] [address] Care Team Providers Name Role Phone Elsewhere, Pcp Primary Care Provider Unavailable Encounter Details Date Type Department Care Team Description 05/09/2021 Clinical Communication Department of [facility] Rad[facility], Homar Leon R.N. [facility] [phone] [place] ([facility]) [address] [place] [phone] Social History Tobacco Use Types Packs/Day Years [...] do you attend denominational or Never 2018 protestant services? Do you [...] as of this encounter Care Teams Irrigation System Operator Relationship Specialty Start Date End Date Elsewhere, Pcp PCP - General Internal Medicine 5/6/19 documented as of this encounter
--- OUTSIDE RECORDS SUMMARY | 2022-02-26 09:06 | XMS_ITS | Clinical Summary ---
:1955 Author Organization [facility] [place] [address] Care Team Providers Name Role Phone Kandace cMkeon Primary Care Provider Parish Ruffin MD Unavailable Unavailable Kwaku Wild MD Unavailable Kari Hunt PhD, LP Unavailable [phone] Allergies Active Allergy Reactions Severity Noted Date [...] heart TABLETS WITHIN 15 failure (HC) MINUTES blood-glucose Dispense meter, 1 Each 0 02/02/20 [...] mg x 3 tablets) fibrillation (HC), every Sun, Wed, Anticoagulation Fri; 4 mg (2 mg x monitoring, INR 2 tablets) all range 2.5-3.5 other days in the evening OR as directed. Next INR 03/05/22. Artificial INSTILL 1 DROP IN 15 mL 2 02/26/20 A ctive Tears,pvalch-povid, BOTH EYES TWICE 22 0.5-0.6 % DAILY NEEDED ophthalmic solutionIndications : Chronically dry eyes, bilateral Artificial INSTILL 1 DROP IN 15 mL 3 01/27/20 D iscontinued Tears,pvalch-povid, BOTH EYES TWICE 21 022 0.5-0.6 % DAILY NEEDED ophthalmic solutionIndications : Chronically dry eyes, bilateral warfarin (COUMADIN) Take by mouth 6 37 [...] Encounters Date Type Specialty Care Team Description 02/25/2022 Office Visit Kandace Mckeon Constipation (can't go, Venus, DO then vomits); U [facility] 02/25/2022 Telephone Jonathan Khan MD 02/25/2022 Travel 02/22/2022 Refill Detert, Kandace Refill Reques t Venus, DO (Artificial Tears(pvalch-po vid)) 02/06/2022 Telephone Kari Hunt, PhD, LP 02/05/2022 Anticoagulation 1, [facility] 02/04/2022 Orders Only Lab, [facility] 02/04/2022 Travel 01/23/2022 Office Visit Kari Hunt Individual Kimberly Chaparro, PhD, LP 01/23/2022 Travel 01/21/2022 Anticoagulation 1, [facility] (warfarin) Clinic 01/18/2022 Orders Only Lab, [facility] 01/18/2022 Travel 01/16/2022 Office Visit Kari Hunt Individual Kimberly Chaparro, PhD, LP 01/16/2022 Travel 01/14/2022 Office Visit Kandace Mckeon Chest Pain (3 weeks); Venus, DO Cramping (abdom inal cramping, BM espinoza lf hour after each time she eats) 01/14/2022 Telephone Kandace Mckeon Anticoagulati on (BPA Venus, DO omeprazole/warf leon) 01/14/2022 Travel 01/09/2022 Anticoagulation 1, [facility] ([facility]) (warfarin) Clinic 01/08/2022 Orders Only Lab, [facility] 01/08/2022 Orders Only Scanner <No scans attac hed> 01/08/2022 Nurse Triage DetertKandace Chest Pain Venus, DO 01/08/2022 Travel 01/07/2022 Refill Detert, Kandace Refill Reques t Venus, DO (Acetaminophen) 12/27/2021 Orders Only Scanner <No scans attac hed> 12/27/2021 Anticoagulation 1, [facility] (warfarin) Clinic 12/26/2021 Orders Only Lab, [facility] 12/26/2021 Office Visit Kari Hunt Individual Therapy; ARCHEL Chaparro, PhD, LP Trmt Plan 12/26/2021 Travel 12/20/2021 Anticoagulation 1, [facility] (warfarin) Clinic 12/19/2021 Orders Only Lab, [facility] 12/19/2021 Travel 12/12/2021 Office Visit Kandace Mckeon Diabetes; Venus, DO Immunization/In jection 12/12/2021 Anticoagulation 1, [facility] (warfarin) Clinic 12/11/2021 Orders Only Lab, [facility] 12/11/2021 Travel 12/11/2021 Telephone Linda Kandace Anticoagulati on (AC Venus, DO Orders) 12/06/2021 Orders Only Scanner <No scans attac hed> 12/06/2021 Orders Only Scanner <No scans attac hed> 11/30/2021 Refill DeterKandace cerna Refill Reques t Venus, DO (Rizatriptan) from Last 3 Months Immunizations Name Administration Dates Next Due AMB Influenza, IIV4 PF (=>6 mos 12/23/2019 Flulaval,Fluzone Fluarix)(Flu Clinic Only) COVID-19 vaccine (Moderna 05/04/2020, 04/06/2020 100mcg/0.5mL) PF, MDV COVID-19 vaccine (Getui 01/19/2021 30mcg/0.3mL) PF, MDV Influenza RIV4 (Age [...] in contact with No / Unsu re 02/25/2022 2:18 PM [facility] someone who was confirmed or suspected to have Coronavirus/COVID-19? Obstetrics History Last Filed Vital Signs Vital Sign Reading Time Taken Comments Blood Pressure 134/82 02/25/2022 2:39 PM [facility] Pulse 78 02/25/2022 2:39 PM [facility] Temperature 37.1 ??C (98.7 ??F) 06/22/2021 10:09 AM CDT Respiratory Rate 18 07/29/2018 2:35 PM CDT Oxygen Saturation 96% 02/25/2022 2:39 PM [facility] Inhaled Oxygen Concentration - - Weight 90.7 kg (200 lb) 02/25/2022 2:39 PM [facility] Height 164 cm (5' 4.57) 08/08/2021 2:56 PM CDT Body Mass Index 33.73 08/08/2021 2:56 PM CDT Plan of Treatment Upcoming Encounters Date Type Specialty Care Team Description 04/04/2022 Office Visit Raulito Bruce, PhD, [address] [address] [place] [address] (Tiffanie richter) 05/27/2022 Procedure Only Jonathan Khan MD [address] [facility] [place] [address] (Wo rk) 06/12/2022 Office Visit Kandace Mckeon ea, DO [address] [place], [place] [address] (Wo rk) Health Maintenance [...] Progress BLOOD Blood No Detert, PRESSURE-MAINTA Pressure COLLIN Villegas BP LESS DO THAN 130/80 Follow up with General Yes Terence providers by Reny Miranda, 06/21/17 FLEXOGRAPHIC PRESS PLATE SETTER Note: Formatting of this note might be d ifferent from the original. - appointment with dental provider by - appointment for DM eye exam and new ey eglasses by 06/21/17 Healthcare Directive General Yes Kam hay, Reny Miranda, FLEXOGRAPHIC PRESS PLATE SETTER Note: Formatting of this note might be d ifferent from the original. - work on completing healthcare directiv e by end of ACT episode Procedures Procedure Name Priority Date/Time Associated Diagnosis Comme nts PROTIME-INR STAT 02/04/2022 1:19 PM New onset atrial Resul ts for this MILL WORK fibrillation (HC ) procedure are in Anticoagulation the results monitoring, INR range sectio n. 2.5-3.5 PROTIME-INR STAT 01/18/2022 11:43 New onset atrial Results for this AM CDT fibrillation (HC ) procedure are in Anticoagulation the results monitoring, INR range sectio n. 2.5-3.5 PROTIME-INR STAT 01/08/2022 2:38 PM New onset atrial Resul ts for this CDT fibrillation (HC ) procedure are in Anticoagulation the results monitoring, INR range sectio n. 2.5-3.5 SCAN-RADIOLOGY 01/08/2022 12:00 Results f or this REPORT AM CDT procedure are i n the results section. SCAN-RADIOLOGY 12/27/2021 12:00 Results f or this REPORT AM CDT procedure are i n the results section. PROTIME-INR STAT 12/26/2021 1:38 PM New onset atrial Resul ts for this CDT fibrillation (HC ) procedure are in Anticoagulation the results monitoring, INR range sectio n. 2.5-3.5 URINE ALBUMIN TO Routine 12/19/2021 1:43 PM Type 2 diabetes Re sults for this CREATININE RATIO, CDT mellitus with procedure are in RANDOM hyperglycemia, the results without long-term section. current use of insulin (HC) PROTIME-INR STAT 12/19/2021 1:37 PM New onset atrial Resul ts for this CDT fibrillation (HC ) procedure are in Anticoagulation the results monitoring, INR range sectio n. 2.5-3.5 BASIC METABOLIC Routine 12/12/2021 2:19 PM Type 2 diabetes Res ults for this PANEL CDT mellitus with procedure are in hyperglycemia, the results without long-term section. current use of insulin (HC) HEMOGLOBIN A1C Routine 12/12/2021 2:19 PM Type 2 diabetes Resu lts for this CDT mellitus with procedure are in hyperglycemia, the results without long-term section. current use of insulin (HC) PROTIME-INR STAT 12/11/2021 2:37 PM New onset atrial Resul ts for this CDT fibrillation (HC ) procedure are in Anticoagulation the results monitoring, INR range sectio n. 2.5-3.5 SCAN-EYE EXAM 12/06/2021 12:00 Results fo r this AM CDT procedure are i n the results section. SCAN-EYE EXAM 12/06/2021 12:00 Results fo r this AM CDT procedure are i n the results section. from Last 3 Months Results (ABNORMAL) PROTIME-INR (02/04/2022 1:19 PM [facility])Only the most recent of6 results within the time period is included. P athologist Signature INR 2.5 (H) <1.3 02/04/2022 [facility]1-800-DENTIST 8:16 PM [facility] LABORATORY[facility] LABORATORY PROTIME 26.3 (H) 12.0 - 13.8 02/04/2022 [facility]-800-DENTIST sec 8:16 PM [facility] LAB[facility]ATORY[facility]ORATORY Specimen Anatomical Collection Method / Collection Time Recei dominguez Time (Source) Location / Volume Laterality Blood BLOOD SPECIMEN / Venipuncture / 02/04/2022 1:19 2021 1:21 Unknown Unknown PM MILL WORK PM MILL WORK Narrative [facility] LABORATORY-CENTRAL LABORAT ORY - 02/04/2022 8:16 PM MILL WORK ?Therapeutic Range 2.0-3.0 for most anticoagulated patients [...] Organization Address City/State/ZIP Code Phon e Number [facility]-DENTIST [address] [place] [address] LABORATORY-CENTRAL 2000 LABORATORY SCAN-RADIOLOGY REPORT (01/08/2022 12:00 AM CDT)Only the most recent of2 results within the time period is included. Narrative This result has an attachment that is no t available. Scanner OTHER (ABNORMAL) URINE ALBUMIN TO CREATININE RATIO, RANDOM (12/19/2021 1:43 PM CDT) [facility] gist Method Time Signature ALB RAND URINE 69.6 mg/L 12/20/2021 [facility] 6:57 AM CDT LABORATORY-[facility] TRAL LABORATORY CREATININE,URIN 0.65 g/L 12/20/2021 [facility] E 6:57 AM CDT LABORATORY-[facility] TRAL LABORATORY ALBUMIN TO 107.1 (H) <30.0 12/20/2021 [facility] CREATININE mg/g 6:57 AM CDT LABORATORY-[facility]IAN RATIO,RAND UR creat TRAL LABORATORY Specimen Anatomical Collection Method Collection Time Receive d Time (Source) Location / / Volume Laterality Urine URINE SPECIMEN / Non-Blood / 12/19/2021 1:43 PM 12/19 1:43 Unknown Unknown CDT PM CDT Narrative [facility] LABORATORY-CENTRAL LABORAT ORY - 12/20/2021 6:57 [...] Address City/State/ZIP Code Phon e Number [facility] [address] [place] [address] LABORATORY-CENTRAL 2000 LABORATORY (ABNORMAL) HEMOGLOBIN A1C MONITORING (POCT) (12/12/2021 2:19 PM CDT) Analysis Performed At Path logist Time Signature HEMOGLOBIN A1C 6.5 (H) <=6.4 % 12/12/2021 [facility] MONITORING 2:32 PM CDT [place] (POCT) [facility] Specimen Anatomical Collection Method / Collection Time Recei dominguez Time (Source) Location / Volume Laterality Blood BLOOD SPECIMEN / Venipuncture / 12/12/2021 2:19 2021 2:23 Unknown Unknown PM CDT PM CDT Narrative [facility] - 2021 2:32 PM CDT ? (<=6.9%) [...] Address City/State/ZIP Code Phon e Number [facility] [address] [place] [address] (ABNORMAL) BASIC METABOLIC PANEL (12/12/2021 2:19 PM CDT) Analysis Performed At Patho logist Time Signature SODIUM 139 135 - 145 12/13/2021 [facility] mmol/L 2:26 PM [facility] LABORATORY POTASSIUM 3.9 3.5 - 5.0 12/13/2021 [facility] mmol/L 2:26 PM [facility] LABORATORY CHLORIDE 103 98 - 110 12/13/2021 [facility] mmol/L 2:26 PM [facility] LABORATORY CO2,TOTAL 27 21 - 31 12/13/2021 [facility] mmol/L 2:26 PM [facility] LABORATORY ANION GAP 9 5 - 18 12/13/2021 [facility] 2:26 PM [facility] LABORATORY GLUCOSE 205 (H) 65 - 100 12/13/2021 [facility] mg/dL 2:26 PM [facility] LABORATORY CALCIUM 9.1 8.5 - 10.5 12/13/2021 [facility] mg/dL 2:26 PM [facility] LABORATORY BUN 10 8 - 25 12/13/2021 [facility] mg/dL 2:26 PM [facility] LABORATORY CREATININE 0.99 0.57 - 12/13/2021 [facility] 1.11 mg/dL 2:26 PM [facility] LABORATORY BUN/CREAT RATIO 10 10 - 20 12/13/2021 [facility] HOSPITA L 2:26 PM [facility] LABORATORY eGFR 64 (L) >90 12/13/2021 [facility] mL/min/1.7 2:26 PM [facility] 3m2 LABORATORY Comment: As of 2021, eGFR [...] Code Phon e Number [facility] INTERNAL ZIP [address] [place] [address] [facility] [address] SCAN-EYE EXAM (12/06/2021 12:00 AM CDT) Narrative This result has an attachment that is no t available. Scanner OTHER SCAN-EYE EXAM (12/06/2021 12:00 AM CDT) Narrative This result has an attachment that is no t available. Scanner OTHER from Last 3 Months Insurance Payer Benefit Plan / Subscriber ID Effective Dates Phone Addre ss Type Group MEDICARE PART B MEDICARE PART [id number] 2004-Presen ATTN: CLAIMS - HB USE ONLY B HB ONLY t [address] [place] [address] MEDICARE PPS HC MEDICARE [id number] 2004-Presen PO [address] X 2019 PPS [address] [place] [address] MEDICARE - PB MEDICARE PB [id number] 2004-Presen ATTN : CLAIMS USE ONLY ONLY t [address] [place] [address] UCARE [place] UCARE CONNECT [id number] 2021-Presen [address] [place] [address] Juni Metcalf Personal/Family Self 1955 [place] (Home) [address] [place] [address] Care Teams Safety Tech Relationship Specialty Start Date End Date Knadace Mckeon DO PCP - General 12/25/09 [address] [place] [address] Parish Ruffin MD Pulmonology Pulmonary Medicine 12/04/11 Kwaku Wild MD Physical Medicine and 10/07/[address] [place] [address] Kari Hunt, Psychologist Psychology 12/10/16 PhD, LP [address] [place] [address]
--- OUTSIDE RECORDS SUMMARY | 2022-02-26 09:06 | XMS_ITS | Encounter Summary ---
:1955 Author Organization [facility] Address [address] [place] [address] Care Team Providers Name Role Phone Elsewhere, Pcp Primary Care Provider Unavailable Reason for Visit MRI/CAT/PET Scan (Routine) - Authorized Specialty Diagnoses / Procedures Referred By Contact Refer red To Contact Radiology Diagnoses Mass Kidney Arun Waterman M.D. [facility] Procedures CT Abdomen Ablation [address] [place] [address] Referral ID Status Reason Start Date Expiration Date Visits V isits Requested Authorized [id number] Authorized 05/08/2021 05/08/2022 1 1 Encounter Details Date Type Department Care Team Description 06/26/2021 Hospital Encounter Department of Arun Waterman M.D. [address] [place] [phone] Canceled (Patient: Radiology, Wily Dale M.D. [address] [place] [phone] Request) [facility] in [place], [place] [address] [place] [address] Social History Tobacco Use Types Packs/Day Years [...] do you attend hindu or Never 2018 gnosticist services? Do you [...] documented as of this encounter Care Teams Buckle Gluer Relationship Specialty Start Date End Date Elsewhere, Pcp PCP - General Internal Medicine 07/27/18 documented as of this encounter
--- OUTSIDE RECORDS SUMMARY | 2022-02-26 09:06 | XMS_ITS | Encounter Summary ---
:1955 Author Organization [facility] Address [address] [place] [address] Care Team Providers Name Role Phone Elsewhere, Pcp Primary Care Provider Unavailable Encounter Details Date Type Department Care Team Description 05/09/2021 Orders Only Department of [facility] Lab Exam (Primary Dx); Radiology, Gayla Leon R.N. Contact With And (Suspected) Exposure To [address] in [phone] [place], [place] (Work) [address] [place] [phone] Social History Tobacco Use Types Packs/Day Years [...] do you attend sikh or Never 2018 buddhism services? Do you [...] documented as of this encounter Care Teams Departmental Shipping Clerk Relationship Specialty Start Date End Date Elsewhere, Pcp PCP - General Internal Medicine 07/27/18 documented as of this encounter
--- OUTSIDE RECORDS SUMMARY | 2022-02-26 09:06 | XMS_ITS | Encounter Summary ---
:1955 Author Organization [facility] Address [address] [place] [address] Care Team Providers Name Role Phone Elsewhere, Pcp Primary Care Provider Unavailable Encounter Details Date Type Department Care Team Description 05/08/2021 Documentation Preoperative Evaluation Cristy Navarro, [place] in [place], [place], C.N.P ., M.S.N. [place] [address] [address] [facility] [address] [place] [phone] (Wo rk) Social History Tobacco Use Types [...] do you attend yarsani or Never 2018 anabaptism services? Do you [...] The patient was not seen in [facility]. RVISOR BODY ASSEMBLY documented in this encounter Plan of Treatment Not on filedocumented as of this encounter Visit Diagnoses Not on filedocumented in this encounter Additional Health Concerns Assessment Noted Time PHQ-9 Depression Total Score: 11 05/04/2013 4:05 PM CS T documented as of this encounter Care Teams Staff Editor Relationship Specialty Start Date End Date Elsewhere, Pcp PCP - General Internal Medicine 07/27/18 documented as of this encounter
--- OUTSIDE RECORDS SUMMARY | 2022-02-26 09:06 | XMS_ITS | Encounter Summary ---
:1955 Author Organization [facility] Address [address] [place] [address] Care Team Providers Name Role Phone Elsewhere, Pcp Primary Care Provider Unavailable Reason for Referral MRI/CAT/PET Scan (Routine) - Closed Specialty Diagnoses / Procedures Referred By Contact Refer red To Contact Radiology Diagnoses Mass Kidney Ally Bar M.D. [facility] Procedures CT Chest without IV Contrast [address] [place] [address] Referral ID Status Reason Start Date Expiration Date Visits Requ ested Visits Authorized [id number] Closed 05/03/2021 05/03/2022 [address] Reason for Visit MRI/CAT/PET Scan (Routine) - Closed Specialty Diagnoses / Procedures Referred By Contact Refer red To Contact Radiology Diagnoses Mass Kidney Ally Bar M.D. [facility] Procedures CT Chest without IV Contrast [address] [place] [address] Referral ID Status Reason Start Date Expiration Date Visits Requ ested Visits Authorized [id number] Closed 05/03/2021 05/03/2022 1 1 Encounter Details Date Type Department Care Team Description 05/03/2021 Hospital Encounter Department of Mcnairy, Ally A, M.D. [facility] Kidney Radiology, Gonda [address] [facility], in [place], [place] [address] [place] [address] [place] [address] Social History Tobacco Use Types [...] do you attend samaritan or Never 2018 restoration services? Do you [...] for this IV CONTRAST (most inpatients PM CLAIMS AGENT RIGHT OF WAY procedure a re in and all the results outpatients) section. documented in this encounter Results CT Chest without IV Contrast (05/03/2021 1:35 PM CLAIMS AGENT RIGHT OF WAY) Anatomical Region Laterality Modality Chest, Thoracic RST LOS, Thoracic ARZ N/A Co mputed Tomography, Computed LOS, Thoracic FLA LOS Tomography Specimen (Source) Anatomical Collection Method Collection Time Re ceived Time Location / / Volume Laterality 05/03/2021 1:42 PM CLAIMS AGENT RIGHT OF WAY Impressions 05/03/2021 1:53 PM CLAIMS AGENT RIGHT OF WAY 1. Increased clustered nodularity with new dominant 11 x 7 mm nodule in the posterior basal left lower lobe, indeter minate but likely infectious/inflammatory rather than neop lastic. CT follow-up suggested in 3 months. 2. Stable 5 x 4 mm left upper lobe nodul e which has decreased since 08/18/2019. 3. Scattered additional tiny nodules are stable since 03/30/2020. Narrative 05/03/2021 1:53 PM CLAIMS AGENT RIGHT OF WAY EXAM: CT CHEST WITHOUT IV CONTRAST COMPARISON: [facility] CT chest 021. FINDINGS: The 5 x [...] EXAM: CT CHEST WITHOUT IV CONTRAST COMPARISON: [facility] CT chest 021. FINDINGS: The 5 x [...] documented as of this encounter Care Teams Value Stream Coach Relationship Specialty Start Date End Date Elsewhere, Pcp PCP - General Internal Medicine 07/27/18 documented as of this encounter
--- OUTSIDE RECORDS SUMMARY | 2022-02-26 09:06 | XMS_ITS | Encounter Summary ---
:1955 Author Organization [facility] Address [address] [place] [address] Care Team Providers Name Role Phone Elsewhere, Pcp Primary Care Provider Unavailable Reason for Visit Outpatient (Routine) - Closed Specialty Diagnoses / Procedures Referred By Contact Refer red To Contact Radiology Diagnoses [facility] Kidney Ally Bar M.D. [address] [address] Referral ID Status Reason Start Date Expiration Date Visits Requ ested Visits Authorized [id number] Closed 05/03/2021 05/03/2022 1 1 Encounter Details Date Type Department Care Team Description 05/09/2021 Virtual Visit Department of Ally Bar M.D. [address] [place] [phone] Mass Kidney (Primary Dx); Radiology, Cristy Sands APRN, C.N.P., M.S.N. [address] [place] [phone] Atrial Fibrillation Paroxysmal (HCC); [facility], in [place]stead[place] ess Gait Disorder Non Orthopedic; [place], [place] Anticoagulant Therapy [address] [place] [address] Social History Tobacco Use Types [...] do you attend yazidi or Never 2018 orthodox services? Do you [...] consult via real-time audio/video technology by Cristy ePrez APRN, CNP on 05/09/2021. REASON FOR CONSULT [...] page the Ablation Radiology nurse pager at [phone] Friday through Friday 7 a.m. to 5 [...] documented as of this encounter Care Teams Quality Assurance Tech Relationship Specialty Start Date End Date Elsewhere, Pcp PCP - General Internal Medicine 07/27/18 documented as of this encounter
--- OUTSIDE RECORDS SUMMARY | 2022-02-26 09:06 | XMS_ITS | Encounter Summary ---
:1955 Author Organization [facility] Address [address] [place] [address] Care Team Providers Name Role Phone Elsewhere, Pcp Primary Care Provider Unavailable Reason for Referral Outpatient (Routine) - Authorized Specialty Diagnoses / Procedures Referred By Contact Refer red To Contact Diagnoses Arun Lee M.D. [facility] Procedures US Assisted Guidance [address] [place] [address] Referral ID Status Reason Start Date Expiration Date Visits V isits Requested Authorized [id number] Authorized 05/08/2021 05/08/2022 1 1 RI/CAT/PET Scan (Routine) - Authorized Specialty Diagnoses / Procedures Referred By Contact Refer red To Contact Radiology Diagnoses Arun Lee M.D. [facility] Procedures CT Abdomen Ablation [address] [place] [address] Referral ID Status Reason Start Date Expiration Date Visits V isits Requested Authorized [id number] Authorized 05/08/2021 05/08/2022 1 1 utpatient (Routine) - Authorized Specialty Diagnoses / Procedures Referred By Contact Refer red To Contact Diagnoses rAun Lee M.D. [facility] Procedures US Kidney Left [address] [place], [place] [address] Referral ID Status Reason Start Date Expiration Date Visits V isits Requested Authorized [id number] Authorized 05/08/2021 05/08/2022 1 1 utpatient (Routine) - Authorized Specialty Diagnoses / Procedures Referred By Contact Refer red To Contact Vascular Medicine Diagnoses Dane Kidney Arun Waterman M.D. [facility] [address] [place], [place] [address] Referral ID Status Reason Start Date Expiration Date Visits V isits Requested Authorized [id number] Authorized 05/08/2021 05/08/2022 1 1 utpatient (Routine) - Authorized Specialty Diagnoses / Procedures Referred By Contact Refer red To Contact Anesthesiology Diagnoses Dane Kidney Arun Waterman M.D. [facility] [address] [place], [place] [address] Referral ID Status Reason Start Date Expiration Date Visits V isits Requested Authorized [id number] Authorized 05/08/2021 05/08/2022 1 1 ENFORCEMENT ADMINISTRATION AGENT Encounter Details Date Type Department Care Team Description 05/08/2021 Orders Only Department of So Ca Dane Kidney (Primary Radiology, Moise MortonNEdilma Sánchez) [facility], in [facility] [phone] [place] (Work) [address] [place] [address] Social History Tobacco Use Types Packs/Day [...] do you attend bahai or Never 2018 gnosticism services? Do you [...] documented as of this encounter Care Teams Vegetable Worker Relationship Specialty Start Date End Date Elsewhere, Pcp PCP - General Internal Medicine 07/27/18 documented as of this encounter
--- OUTSIDE RECORDS SUMMARY | 2022-02-26 09:06 | XMS_ITS | Clinical Summary ---
:1955 Author Organization [facility] Address [address] [place] [address] Care Team Providers Name Role Phone Elsewhere, Pcp Primary Care Provider Unavailable Source Comments Patient records contain information from all sites at [facility]. For routine questions regarding patient records, call [phone] during business hours, M-F 8:00 AM - 5:00 PM Central Time. Record requests for emergency care only can be directed to [phone] at any time.[facility] Allergies Active Allergy Reactions Severity Noted [...] Dr. Yeager on 04/20/2019 -admitted at the [facility] from 06/22/2018 - 06/23/2018, where [...] [facility] Fibromyalgia 06/28/2015 Overview: On duloxetine. Pain currently [...] do you attend buddhist or Never 2018 orthodoxy services? Do you belong to any clubs or No 02/26/2019 organizations such as buddhist groups, unions, fraQualQuant Signals or athletic groups, or school groups? How [...] Comments Blood Pressure 148/86 03/30/2020 1:16 PM ECHOCARDIOGRAPH TECHNICIAN Pulse 61 03/30/2020 1:16 PM ECHOCARDIOGRAPH TECHNICIAN Temperature 36.1 ??C (97 ??F) 03/30/2020 1:16 PM ECHOCARDIOGRAPH TECHNICIAN Respiratory Rate 22 04/21/2019 11:15 AM ECHOCARDIOGRAPH TECHNICIAN Oxygen Saturation 98% 03/30/2020 1:16 PM ECHOCARDIOGRAPH TECHNICIAN Inhaled Oxygen Concentration - - Weight 90.2 kg (198 lb 13.7 oz) 03/30/2020 1:16 PM ECHOCARDIOGRAPH TECHNICIAN Height 164.4 cm (5' 4.72) 03/30/2020 1:16 PM ECHOCARDIOGRAPH TECHNICIAN Body Mass Index 33.37 03/30/2020 1:16 PM ECHOCARDIOGRAPH TECHNICIAN Plan of Treatment Health Maintenance Due Date [...] e / Group Dates MEDICARE MEDICARE A [id number] 2004-Prese [address] [place] [address] [facility] [id number] 2021-Prese [phone] [address] Medicaid HMO nt [address] [place] [address] Advance Directives For more information, please contact: [phone] Latest Code Status on File Code Status [...] Due to: Patient not available Care Teams Dedicated Truck Driver Relationship Specialty Start Date End Date Elsewhere, Pcp PCP - General Internal Medicine 07/27/18
--- OUTSIDE RECORDS SUMMARY | 2022-02-26 09:06 | XMS_ITS | Encounter Summary ---
:1955 Author Organization [facility] Address [address] [place] [address] Care Team Providers Name Role Phone Elsewhere, Pcp Primary Care Provider Unavailable Reason for Referral MRI/CAT/PET Scan (Routine) - Closed Specialty Diagnoses / Procedures Referred By Contact Refer red To Contact Radiology Diagnoses Mass Kidney Ally Bar M.D. [facility] Procedures CT Chest without IV Contrast [address] [place] [address] Referral ID Status Reason Start Date Expiration Date Visits Requ ested Visits Authorized [id number] Closed 05/03/2021 05/03/2022 1 1 ERING MACHINE OFF BEARER Outpatient (Routine) - Closed Specialty Diagnoses / Procedures Referred By Contact Refer red To Contact Radiology Diagnoses Mass Kidney Ally Bar M.D. [facility] [address] [place] [address] Referral ID Status Reason Start Date Expiration Date Visits Requ ested Visits Authorized [id number] Closed 05/03/2021 05/03/2022 1 1 ERING MACHINE OFF BEARER Encounter Details Date Type Department Care Team Description 05/03/2021 Orders Only Department of Urology Ally Bar Ma ss Kidney (Primary in [place], Bess Dx) [place] [address] [facility], [place] [address] [phone] Social History Tobacco Use Types Packs/Day Years [...] do you attend congregation or Never 2018 hinduism services? Do you [...] Chest without IV Contrast (05/03/2021 1:35 PM TENTERING MACHINE OFF BEARER) Anatomical Region Laterality Modality Chest, Thoracic RST LOS, Thoracic ARZ N/A Co mputed Tomography, Computed LOS, Thoracic FLA LOS Tomography Specimen (Source) Anatomical Collection Method Collection Time Re ceived Time Location / / Volume Laterality 05/03/2021 1:42 PM TENTERING MACHINE OFF BEARER Impressions 05/03/2021 1:53 PM TENTERING MACHINE OFF BEARER 1. Increased clustered nodularity with new dominant 11 x 7 mm nodule in the posterior basal left lower lobe, indeter minate but likely infectious/inflammatory rather than neop lastic. CT follow-up suggested in 3 months. 2. Stable 5 x 4 mm left upper lobe nodul e which has decreased since 08/18/2019. 3. Scattered additional tiny nodules are stable since 03/30/2020. Narrative 05/03/2021 1:53 PM TENTERING MACHINE OFF BEARER EXAM: CT CHEST WITHOUT IV CONTRAST COMPARISON: [facility] CT chest 01/07/2 021. FINDINGS: The 5 [...] CT CHEST WITHOUT IV CONTRAST COMPARISON: [facility] CT chest . FINDINGS: The 5 x [...] documented as of this encounter Care Teams Electrician Wiring Relationship Specialty Start Date End Date Elsewhere, Pcp PCP - General Internal Medicine 07/27/18 documented as of this encounter
--- OUTSIDE RECORDS SUMMARY | 2022-02-26 09:06 | XMS_ITS | Encounter Summary ---
:1955 Author Organization [facility] Address [address] [place] [address] Care Team Providers Name Role Phone Elsewhere, Pcp Primary Care Provider Unavailable Reason for Visit Reason Comments Pre-Ablation Encounter Details Date Type Department Care Team Description 05/03/2021 Clinical Communication Department of So Ca e-Ablation Radiology, Homar Leon R.N. [place], in [phone] [place], [place] (Work) [address] [place] [address] Social History Tobacco Use Types Packs/Day [...] do you attend sikh or Never 2018 faith services? Do you [...] ablation: Yes Reviewed by: Alen Gan M.D. R OPERATOR HOT METAL documented in this encounter Plan of Treatment Not on filedocumented as of this encounter Visit Diagnoses Not on filedocumented in this encounter Additional Health Concerns Assessment Noted Time PHQ-9 Depression Total Score: 11 05/04/2013 4:05 PM CS T documented as of this encounter Care Teams Shoe Repairer Relationship Specialty Start Date End Date Elsewhere, Pcp PCP - General Internal Medicine 07/27/18 documented as of this encounter
--- OUTSIDE RECORDS SUMMARY | 2022-02-26 09:07 | XMS_ITS | Encounter Summary ---
:1955 Author Organization [facility] Address [address] [place] [address] Care Team Providers Name Role Phone Elsewhere, Pcp Primary Care Provider Unavailable Encounter Details Date Type Department Care Team Description 04/07/2020 Hospital Encounter [facility], in [address] [address] Social History Tobacco Use Types Packs/Day [...] do you attend judaism or Never 2018 synagogue services? Do you [...] COVID19 Pending 04/07/2020 04/07/2020 04/07/2020 7:59 PM SAFETY ADMINISTRATOR Assessment Noted Time PHQ-9 Depression Total Score: 11 05/04/2013 4:05 PM CS T documented as of this encounter Care Teams Hvac Installation Technician Relationship Specialty Start Date End Date Elsewhere, Pcp PCP - General Internal Medicine 07/27/18 documented as of this encounter
--- OUTSIDE RECORDS SUMMARY | 2022-02-26 09:07 | XMS_ITS | Encounter Summary ---
:1955 Author Organization [facility] Address [address] [place] [address] Care Team Providers Name Role Phone Elsewhere, Pcp Primary Care Provider Unavailable Encounter Details Date Type Department Care Team Description 05/02/2021 Hospital Encounter Department of Laboratory Yamile Watts M.D. [facility] Kidney Medicine and Pathology, [facility] in [place], [place] [address] [place] [address] Social History Tobacco Use Types Packs/Day [...] do you attend restoration or Never 2018 jain services? Do you [...] Procedure Name Priority Date/Time Associated Comments Diagnosis CO OSMOLALITY ASSAY Routine 05/02/2021 10:17 Resu lts for this URINE AM SUGAR REFINERY SUPERVISOR procedure are i n the results section. DIPSTICK, U Routine 05/02/2021 10:17 Results for this AM SUGAR REFINERY SUPERVISOR procedure are i n the results section. PH, RANDOM, U Routine 05/02/2021 10:17 Results fo r this AM SUGAR REFINERY SUPERVISOR procedure are i n the results section. MICROSCOPIC MANUAL Routine 05/02/2021 10:17 Resul ts for this AM SUGAR REFINERY SUPERVISOR procedure are i n the results section. URINALYSIS WITH Routine 05/02/2021 10:17 Mass Kidney Results for this MICROSCOPIC AM SUGAR REFINERY SUPERVISOR procedure are i n the results section. documented in this encounter Results Dipstick, Urine (05/02/2021 10:17 AM SUGAR REFINERY SUPERVISOR) [facility] gist Method Time Signature Hemoglobin, Negative Negative 05/02/2021 DTL QL, U 11:20 AM SUGAR REFINERY SUPERVISOR Leukocyte Negative Negative 05/02/2021 DTL Esterase, U 11:20 AM SUGAR REFINERY SUPERVISOR Nitrite, U Negative Negative 05/02/2021 DTL 11:20 AM SUGAR REFINERY SUPERVISOR Ketone, U Negative Negative 05/02/2021 DTL mg/dL 11:20 AM SUGAR REFINERY SUPERVISOR Glucose, U Negative Negative 05/02/2021 DTL mg/dL 11:20 AM SUGAR REFINERY SUPERVISOR Specimen Anatomical Collection Method Collection Time Receive d Time (Source) Location / / Volume Laterality Urine 05/02/2021 10:17 05/02/2021 AM SUGAR REFINERY SUPERVISOR 11:05 AM SUGAR REFINERY SUPERVISOR Kristen Watts M.D. LAB URINE ORDERABLES Performing Organization Address City/[facility] Phon e Number [facility] - [address] Osmolality, Urine (05/02/2021 10:17 AM SUGAR REFINERY SUPERVISOR) athologist Signature Osmolality, U 519 150 - 1150 05/02/2021 DTL mOsm/kg 12:05 PM SUGAR REFINERY SUPERVISOR Specimen Anatomical Collection Method Collection Time Receive d Time (Source) Location / / Volume Laterality Urine 05/02/2021 10:17 05/02/2021 AM SUGAR REFINERY SUPERVISOR 11:05 AM SUGAR REFINERY SUPERVISOR Kristen Watts M.D. LAB URINE ORDERABLES Performing Organization Address City/[facility] Phon e Number [facility] - [address] [place] [address] [place] [address] pH, Random, Urine (05/02/2021 10:17 AM SUGAR REFINERY SUPERVISOR) P athologist Signature pH, Random, U 5.1 4.5 - 8.0 05/02/2021 DTL 12:05 PM SUGAR REFINERY SUPERVISOR Specimen Anatomical Collection Method Collection Time Receive d Time (Source) Location / / Volume Laterality Urine 05/02/2021 10:17 05/02/2021 AM SUGAR REFINERY SUPERVISOR 11:05 AM SUGAR REFINERY SUPERVISOR Kristen Watts M.D. LAB URINE ORDERABLES Performing Organization Address [facility]/ZIP [facility] Phon e Number [facility] - [address] [place] [address] (ABNORMAL) Microscopic Manual (05/02/2021 10:17 AM SUGAR REFINERY SUPERVISOR) P athologist Signature Microscopy Abnormal 05/02/2021 DTL 1:14 PM SUGAR REFINERY SUPERVISOR RBC <3 <3 /hpf 05/02/2021 DTL 1:14 PM SUGAR REFINERY SUPERVISOR WBC 1-3 /hpf 05/02/2021 DTL 1:14 PM SUGAR REFINERY SUPERVISOR Comment: ----REFERENCE VALUE---- 1-3 ??(Males) 1-10 (Females) Squamous Epithelial Cells, U 4-10 /hpf 05/02/2021 1:14 PM SUGAR REFINERY SUPERVISOR DTL Bacteria Present (A) 05/02/2021 1:14 PM SUGAR REFINERY SUPERVISOR DTL Specimen Anatomical Collection Method Collection Time Receive d Time (Source) Location / / Volume Laterality Urine 05/02/2021 10:17 05/02/2021 AM SUGAR REFINERY SUPERVISOR 11:05 AM SUGAR REFINERY SUPERVISOR Kristen Watts M.D. LAB URINE ORDERABLES Performing Organization Address City/[facility] Phon e Number [address] (ABNORMAL) Urinalysis with Microscopic: Urine, Midstream (05/02/2021 10:17 AM SUGAR REFINERY SUPERVISOR) [facility] Method Time Signature Source Urine, Urine, 05/02/2021 DTL Midstream 11:04 AM SUGAR REFINERY SUPERVISOR Color, U Yellow 05/02/2021 DTL 11:05 AM SUGAR REFINERY SUPERVISOR Clarity, U Cloudy (A) 05/02/2021 DTL 11:05 AM SUGAR REFINERY SUPERVISOR Protein, U 24 <26 mg/dL 05/02/2021 DTL 12:15 PM SUGAR REFINERY SUPERVISOR Protein/Osmol 0.46 (H) <0.42 05/02/2021 DTL ality ratio 12:15 PM SUGAR REFINERY SUPERVISOR Predicted 24 332 mg/24 h 05/02/2021 DTL Hr Protein 12:15 PM SUGAR REFINERY SUPERVISOR Predicted 82-1344 mg/24 h 05/02/2021 DTL Range 12:15 PM SUGAR REFINERY SUPERVISOR Specimen Anatomical Collection Method Collection Time Receive d Time (Source) Location / / Volume Laterality Urine (Urine, 05/02/2021 10:17 05/02/2021 Midstream) AM SUGAR REFINERY SUPERVISOR 11:04 AM SUGAR REFINERY SUPERVISOR Kristen Watts M.D. LAB URINE ORDERABLES Performing Organization Address City/State/ZIP Code Phon e Number [facility] - [address] [place], [place] [address] [facility] [place] [address] [facility] [address] documented in this encounter Visit Diagnoses Diagnosis Mass Kidney documented in this encounter Additional Health Concerns Assessment Noted Time PHQ-9 Depression Total Score: 11 05/04/2013 4:05 PM CS T documented as of this encounter Care Teams Reeling Machine Operator Relationship Specialty Start Date End Date Elsewhere, Pcp PCP - General Internal Medicine 07/27/18 documented as of this encounter
--- OUTSIDE RECORDS SUMMARY | 2022-02-26 09:07 | XMS_ITS | Encounter Summary ---
:1955 Author Organization [facility] Address [address] [place] [address] Care Team Providers Name Role Phone Elsewhere, Pcp Primary Care Provider Unavailable Reason for Visit Outpatient (Routine) - Closed Specialty Diagnoses / Procedures Referred By Contact Refer red To Contact Urology Brian Mathias M.D . [facility] [address] [place] [address] Referral ID Status Reason Start Date Expiration Date Visits Requ ested Visits Authorized [id number] Closed 05/04/2020 05/04/2021 1 1 Encounter Details Date Type Department Care Team Description 05/03/2021 Office Visit Department of Urology Ally Bar Ma ss Kidney (Primary in Krista, Bess Dx) [place] [address] [facility] [address] [place] [phone] [phone] Social History Tobacco Use Types Packs/Day Years [...] 02/26/2019 organizations such as anglican groups, unions, [employer] or athletic groups, or school groups? How [...] by: Sheryl Bar M.D. 05/03/2021 11:48 AM POLICE CAPTAIN PRECINCT CE CAPTAIN PRECINCT documented in this encounter Plan of Treatment Not on filedocumented as of this encounter Visit Diagnoses Diagnosis Mass Kidney - Primary documented in this encounter Additional Health Concerns Assessment Noted Time PHQ-9 Depression Total Score: 11 05/04/2013 4:05 PM CS T documented as of this encounter Care Teams Cylinder Loader Relationship Specialty Start Date End Date Elsewhere, Pcp PCP - General Internal Medicine 07/27/18 documented as of this encounter
--- OUTSIDE RECORDS SUMMARY | 2022-02-26 09:07 | XMS_ITS | Encounter Summary ---
:1955 Author Organization [facility] Address [address] [place] [address] Care Team Providers Name Role Phone Elsewhere, Pcp Primary Care Provider Unavailable Reason for Referral MRI/CAT/PET Scan (Routine) - Closed Specialty Diagnoses / Procedures Referred By Contact Refer red To Contact Radiology Diagnoses Kidney And Ureter Disorder Brian Mathias M.D. [facility] Procedures CT Abdomen with IV Contrast CT Abdomen without and with IV Contrast 200 [place] [address] Referral ID Status Reason Start Date Expiration Date Visits Requ ested Visits Authorized [id number] Closed 04/11/2020 04/11/2021 1 1 TRIMMING MACHINE OPERATOR Reason for Visit Outpatient (Routine) - Closed Specialty Diagnoses / Procedures Referred By Contact Refer steven To Contact Urology Zac Gonzalez M.D. [facility] 200 [place] [address] Referral ID Status Reason Start Date Expiration Date Visits Requ ested Visits Authorized [id number] Closed 01/05/2020 01/04/2021 1 1 Encounter Details Date Type Department Care Team Description 04/11/2020 Office Visit Department of Urology Brian Mathias Ma ss Kidney (Primary Dx); in [place] Kidney And Ure ter Disorder [place] [address] [place] [phone] Social History Tobacco Use Types Packs/Day Years [...] do you attend congregational or Never 2018 pentecostalism services? Do you [...] PM CST PROGRESS NOTE REASON FOR VISIT MACHINE BUNCH MAKER Calendar HISTORY OF PRESENT ILLNESS Ms. Metcalf [...] by: Brian Mathias M.D. 04/11/2020 7:00 AM CUP TRIMMING MACHINE OPERATOR Answers for HPI/ROS submitted by the patient [...] Yes Bruises/bleeds easily: Yes Frequent urination: Yes TRIMMING MACHINE OPERATOR documented in this encounter Plan of Treatment Not on filedocumented as of this encounter Results CT Abdomen with IV Contrast (04/24/2020 1:25 PM CUP TRIMMING MACHINE OPERATOR) Anatomical Region Laterality Modality Abdomen, Abdominal RST LOS, Abdominal N/A Co mputed Tomography, Computed ARZ LOS, Abdominal FLA LOS Tomography Specimen (Source) Anatomical Collection Method Collection Time Re ceived Time Location / / Volume Laterality 04/24/2020 2:21 PM CUP TRIMMING MACHINE OPERATOR Impressions 04/24/2020 2:47 PM CUP TRIMMING MACHINE OPERATOR 1. No change since 11/30/2019 indeterminate 1.4 cm left renal mass likely representing primary renal neoplasm. 2. Small hiatal hernia. 3. Probable osteoporosis. Narrative 04/24/2020 2:47 PM CUP TRIMMING MACHINE OPERATOR EXAM: ??CT ABDOMEN WITH IV CONTRAST COMPARISON: [...] as of this encounter Care Teams Physical Metallurgist Relationship Specialty Start Date End Date Elsewhere, Pcp PCP - General Internal Medicine 07/27/18 documented as of this encounter
--- OUTSIDE RECORDS SUMMARY | 2022-02-26 09:07 | XMS_ITS | Encounter Summary ---
:1955 Author Organization [facility] Address [address] [place] [address] Care Team Providers Name Role Phone Elsewhere, Pcp Primary Care Provider Unavailable Reason for Referral MRI/CAT/PET Scan (Routine) - Closed Specialty Diagnoses / Procedures Referred By Contact Refer red To Contact Radiology Diagnoses Mass Kidney Kristen Watts M.D. [facility] Procedures CT Abdomen Pelvis with IV Contrast CT Abdomen Pelvis without and with IV Contrast 200 [place] [address] Referral ID Status Reason Start Date Expiration Date Visits Requ ested Visits Authorized [id number] Closed 02/06/2021 02/06/2022 1 1 utpatient (Routine) - Closed Specialty Diagnoses / Procedures Referred By Contact Refer red To Contact Diagnoses Other Polyuria Kristen Watts M.D. [facility] Procedures URO Uroflow 200 [place] [address] Referral ID Status Reason Start Date Expiration Date Visits Requ ested Visits Authorized [id number] Closed 02/06/2021 02/06/2022 1 1 POURER Encounter Details Date Type Department Care Team Description 02/06/2021 Orders Only Department of Urology Kristen Watts, Mass Kidney (Primary Dx); in [facility] nasim Kellogg Other Polyuria; [address] [place] [address] Diabetes Mellitus Type 2 ([place]) [place] [address] Social History Tobacco Use Types Packs/Day Years [...] do you attend restorationism or Never 2018 lutheran services? Do you [...] encounter Results URO Uroflow (05/03/2021 10:45 AM IRON POURER) Narrative Eusebio Tran M.D. - 05/03/2021 10: 45 AM IRON POURER Eusebio Tran M.D. ? 05/07/2021 ??9:36 AM [...] Pelvis with IV Contrast (05/02/2021 11:48 AM IRON POURER) Anatomical Region Laterality Modality Abdomen, Pelvis, Abdominal RST LOS, N/A Comp uted Tomography, Computed Abdominal ARZ LOS, Abdominal FLA LOS Godwin ography Specimen (Source) Anatomical Collection Method Collection Time Re ceived Time Location / / Volume Laterality 05/02/2021 11:49 AM IRON POURER Impressions 05/02/2021 1:00 PM IRON POURER 1. Slight interval enlargement of the 1.6 cm left renal mass likely representing a primary renal neoplasm. 2. No evidence of metastatic disease in the abdomen or pelvis. Narrative 05/02/2021 1:00 PM IRON POURER EXAM: ??CT ABDOMEN PELVIS WITH IV CONTRAST [...] with Microscopic: Urine, Midstream (05/02/2021 10:17 AM IRON POURER) [facility] Method Time Signature Source Urine, Urine, 05/02/2021 DTL Midstream 11:04 AM IRON POURER Color, U Yellow 05/02/2021 DTL 11:05 AM IRON POURER Clarity, U Cloudy (A) 05/02/2021 DTL 11:05 AM IRON POURER Protein, U 24 <26 mg/dL 05/02/2021 DTL 12:15 PM IRON POURER Protein/Osmol 0.46 (H) <0.42 05/02/2021 DTL ality ratio 12:15 PM IRON POURER Predicted 24 332 mg/24 h 05/02/2021 DTL Hr Protein 12:15 PM IRON POURER Predicted 82-1344 mg/24 h 05/02/2021 DTL Range 12:15 PM IRON POURER Specimen Anatomical Collection Method Collection Time Receive d Time (Source) Location / / Volume Laterality Urine (Urine, 05/02/2021 10:17 05/02/2021 Midstream) AM IRON POURER 11:04 AM IRON POURER Kristen Watts M.D. LAB URINE ORDERABLES Performing Organization Address City/[facility] Phon e Number [facility] - [address] [place], [place] [address] [place] [address] (ABNORMAL) Hemoglobin A1c (05/02/2021 10:07 AM IRON POURER) P athologist Signature Hemoglobin A1c, 6.7 (H) 4.0 - 5.6 05/02/2021 DTL B % 10:48 AM IRON POURER Comment: Hemoglobin A1c values greater than or eq ual to 6.5 percent are diagnostic for diabetes mellitus. ?? Diagnosis should be confirmed by repeat testing. ??In diabet ic patients, HbA1c goals should be discussed with healthcar e provider. Specimen Anatomical Collection Method Collection Time Receive d Time (Source) Location / / Volume Laterality Blood (Blood, 05/02/2021 10:07 05/02/2021 Venous) AM IRON POURER 10:27 AM IRON POURER Kristen Watts M.D. LAB BLOOD ADD-ON Performing Organization Address City/[facility]/ZIP [facility] Phon e Number [facility] - [address] [place] [address] Basic Metabolic Panel (05/02/2021 10:07 AM IRON POURER) P athologist Signature Potassium, S 4.1 3.6 - 5.2 05/02/2021 DTL mmol/L 11:21 AM IRON POURER Sodium, S 141 135 - 145 05/02/2021 DTL mmol/L 11:21 AM IRON POURER Chloride, S 103 98 - 107 05/02/2021 DTL mmol/L 11:21 AM IRON POURER Bicarbonate, S 26 22 - 29 05/02/2021 DTL mmol/L 11:21 AM IRON POURER Anion Gap 12 7 - 15 05/02/2021 DTL 11:21 AM IRON POURER BUN (Blood Urea 12 6 - 21 05/02/2021 DTL Nitrogen), S mg/dL 11:21 AM IRON POURER Creatinine 0.92 0.59 - 05/02/2021 DTL 1.04 mg/dL 11:21 AM IRON POURER eGFR-Non 66 >=60 05/02/2021 DTL Black/ mL/min/BSA 11:21 AM IRON POURER Spanish Comment: ----ADDITIONAL INFORMATION---- Estimated GFR calculated using the 2009 CKD_EPI creatinine equation. eGFR-Black/ 76 >=60 mL/min/BSA 2021 11:21 AM IRON POURER DTL Comment: ----ADDITIONAL INFORMATION---- Estimated GFR calculated using the 2009 CKD_EPI creatinine equation. Calcium, Total, S 9.3 8.8 - 10.2 mg/dL 05/02/2021 11:2 1 AM IRON POURER DTL Glucose, S 128 70 - 140 mg/dL 05/02/2021 11:21 AM IRON POURER DTL Specimen Anatomical Collection Method Collection Time Receive d Time (Source) Location / / Volume Laterality Blood (Blood, 05/02/2021 10:07 05/02/2021 Venous) AM IRON POURER 10:54 AM IRON POURER Kristen Watts M.D. LAB BLOOD ADD-ON Performing Organization Address City/State/ZIP Code Phon e Number [facility] - [address] [place] [address] [facility] [place] [address] [facility] [address] documented in this encounter Visit Diagnoses Diagnosis Mass Kidney - Primary Other Polyuria Diabetes Mellitus Type 2 (HCC) Mass Kidney Other Polyuria Feeling Of Incomplete Bladder Emptying Frequency Urinary documented in this encounter Additional Health Concerns Assessment Noted Time PHQ-9 Depression Total Score: 11 05/04/2013 4:05 PM CS T documented as of this encounter Care Teams Machine Feeder Floorperson Relationship Specialty Start Date End Date Elsewhere, Pcp PCP - General Internal Medicine 07/27/18 documented as of this encounter
--- OUTSIDE RECORDS SUMMARY | 2022-02-26 09:07 | XMS_ITS | Encounter Summary ---
:1955 Author Organization [facility] Address [address] [place] [address] Care Team Providers Name Role Phone Elsewhere, Pcp Primary Care Provider Unavailable Reason for Visit Reason Comments Dizziness Atrial Fibrillation Encounter Details Date Type Department Care Team Description 01/25/2021 Clinical Department of Oven Heater Helper Dizziness; Atr ial Communication Cardiovascular , Bess Randall Fibrillation Medicine in [place], [place] [address] [place] [address] Social History Tobacco Use Types Packs/Day Years [...] do you attend yarsanism or Never 2018 yazidi services? Do you [...] Quinones - 01/26/2021 11:11 AM CDT Called [email or web address] [phone]. She will connect with patient and have patient's PCIM order a 48-hour Holter Monitor, as patient hasn't had any rhythm monitoring done. Telephone Encounter - Carlota Casiano - 01/25/2021 2:35 PM CDT Symptoms ?? Goal or summary: Appt w/Testing ?? Recent change/new symptom/duration: [facility] ([phone]) check up, says things are off says [...] as of this encounter Care Teams Production Packager Relationship Specialty Start Date End Date Elsewhere, Pcp PCP - General Internal Medicine 07/27/18 documented as of this encounter
--- OUTSIDE RECORDS SUMMARY | 2022-02-26 09:07 | XMS_ITS | Encounter Summary ---
:1955 Author Organization [facility] Address [address] [place] [address] Care Team Providers Name Role Phone Elsewhere, Pcp Primary Care Provider Unavailable Reason for Referral MRI/CAT/PET Scan (Routine) - Closed Specialty Diagnoses / Procedures Referred By Contact Refer red To Contact Radiology Diagnoses Mass Kidney Kristen Watts M.D. [facility] Procedures CT Abdomen Pelvis with IV Contrast CT Abdomen Pelvis without and with IV Contrast 200 [place] [address] Referral ID Status Reason Start Date Expiration Date Visits Requ ested Visits Authorized [id number] Closed 02/06/2021 02/06/2022 1 1 TOP HAT BODY MAKER Reason for Visit MRI/CAT/PET Scan (Routine) - Closed Specialty Diagnoses / Procedures Referred By Contact Refer red To Contact Radiology Diagnoses Mass Kidney Kristen Watts M.D. [facility] Procedures CT Abdomen Pelvis with IV Contrast CT Abdomen Pelvis without and with IV Contrast 200 [place] [address] Referral ID Status Reason Start Date Expiration Date Visits Requ ested Visits Authorized [id number] Closed 02/06/2021 02/06/2022 1 1 Encounter Details Date Type Department Care Team Description 05/02/2021 Hospital Encounter Department of Radiology, Yamile Watts M.D. Mass Kidney [facility], in [place], [place] [address] [place] [address] Social History Tobacco Use Types Packs/Day [...] this WITH IV CONTRAST (most inpatients AM SILK TOP HAT BODY MAKER procedu re are in and all the results outpatients) section. CREATININE, POCT, Routine 05/02/2021 11:23 Result s for this B AM SILK TOP HAT BODY MAKER procedure are i n the results section. CREATININE, POCT, Routine 05/02/2021 11:23 Result s for this B AM SILK TOP HAT BODY MAKER procedure are i n the results section. documented in this encounter Results CT Abdomen Pelvis with IV Contrast (05/02/2021 11:48 AM SILK TOP HAT BODY MAKER) Anatomical Region Laterality Modality Abdomen, Pelvis, Abdominal RST LOS, N/A Comp uted Tomography, Computed Abdominal ARZ LOS, Abdominal FLA LOS Godwin ography Specimen (Source) Anatomical Collection Method Collection Time Re ceived Time Location / / Volume Laterality 05/02/2021 11:49 AM SILK TOP HAT BODY MAKER Impressions 05/02/2021 1:00 PM SILK TOP HAT BODY MAKER 1. Slight interval enlargement of the 1.6 cm left renal mass likely representing a primary renal neoplasm. 2. No evidence of metastatic disease in the abdomen or pelvis. Narrative 05/02/2021 1:00 PM SILK TOP HAT BODY MAKER EXAM: ??CT ABDOMEN PELVIS WITH IV CONTRAST [...] CT PROCEDURES Creatinine, POCT (05/02/2021 11:23 AM SILK TOP HAT BODY MAKER) athologist Signature Creatinine, 0.7 0.6 - 1.0 05/02/2021 PCDT POCT, B mg/dL 11:28 AM SILK TOP HAT BODY MAKER Comment: ----ADDITIONAL INFORMATION---- Performed at the Point of Care Specimen Anatomical Collection Method Collection Time Receive d Time (Source) Location / / Volume Laterality Blood 05/02/2021 11:23 05/02/2021 AM SILK TOP HAT BODY MAKER 11:29 AM SILK TOP HAT BODY MAKER Unknown Provider LAB POCT ORDERABLES - DEVICE Performing Organization Address City/State/ZIP Code Phon e Number [facility] [address] [place] [address] LABS PCDT [facility] [place] [address] [place] [facility] [address] Creatinine, POCT (05/02/2021 11:23 AM SILK TOP HAT BODY MAKER) P athologist Signature eGFR-Black/Afri >90 >=60 05/02/2021 PCDT can Mozambican, mL/min/BSA 11:29 AM SILK TOP HAT BODY MAKER POCT Comment: ----ADDITIONAL INFORMATION---- Estimated GFR calculated using the 2009 CKD_EPI creatinine equation. eGFR Non-Black/, >90 >=60 mL/min/BSA 05/02/2021 11:29 AM SILK TOP HAT BODY MAKER PCDT POCT Comment: ----ADDITIONAL INFORMATION---- Estimated GFR calculated using the 2009 CKD_EPI creatinine equation. Specimen Anatomical Collection Method Collection Time Receive d Time (Source) Location / / Volume Laterality Blood 05/02/2021 11:23 05/02/2021 AM SILK TOP HAT BODY MAKER 11:29 AM SILK TOP HAT BODY MAKER Unknown Provider LAB POCT ORDERABLES - DEVICE Performing Organization Address City/State/ZIP Code Phon e Number [facility] PERFORMING [address] [place] [address] LABS PCDT [facility] [place] [address] [place] [facility] [address] documented in this encounter Visit Diagnoses Diagnosis Mass Kidney documented in this encounter Administered Medications Inactive Administered Medications - up to 3 most recent administrations Medication Order MAR Action Action Date Dose Rate Site iohexoL 300 mg iodine/mL solution Given 05/02/2021 11:38 AM SILK TOP HAT BODY MAKER 140 mL 1-200 mL (OMNIPAQUE) 1-200 mL, intravenous, Once in imaging, contrast, Starting on Fri05/02/21 at 1114, For 1 dose, Imaging Protocol Orders, Dose per Radiant Medication Guidelines sodium chloride (PF) 0.9 % injection 1-1 00 mL Given 05/02/2021 11:38 AM SILK TOP HAT BODY MAKER 50 mL 1-100 mL, intravenous, Once, On Fri05/02/21 at 1115, For 1 dose, Imaging Protocol Orders documented in this encounter Additional Health Concerns Assessment Noted Time PHQ-9 Depression Total Score: 11 05/04/2013 4:05 PM CS T documented as of this encounter Care Teams Veterinary Medicine Teacher Relationship Specialty Start Date End Date Elsewhere, Pcp PCP - General Internal Medicine 07/27/18 documented as of this encounter
--- OUTSIDE RECORDS SUMMARY | 2022-02-26 09:07 | XMS_ITS | Encounter Summary ---
:1955 Author Organization [facility] Address [address] [place] [address] Care Team Providers Name Role Phone Elsewhere, Pcp Primary Care Provider Unavailable Encounter Details Date Type Department Care Team Description 05/04/2020 Clinical Communication Department of Urology Stacy Mathias in [place] [address] [address] [place] [address] Social History Tobacco Use Types Packs/Day Years [...] do you attend orthodoxy or Never 2018 sikh services? Do you [...] office visit. All questions answered. Orders placed. HT LOSS CONSULTANT documented in this encounter Plan of Treatment Not on filedocumented as of this encounter Visit Diagnoses Not on filedocumented in this encounter Additional Health Concerns Assessment Noted Time PHQ-9 Depression Total Score: 05/04/2013 4:05 PM CS T documented as of this encounter Care Teams Kennel Aide Relationship Specialty Start Date End Date Elsewhere, Pcp PCP - General Internal Medicine 07/27/18 documented as of this encounter
--- OUTSIDE RECORDS SUMMARY | 2022-02-26 09:07 | XMS_ITS | Encounter Summary ---
:1955 Author Organization [facility] Address [address] [place] [address] Care Team Providers Name Role Phone Elsewhere, Pcp Primary Care Provider Unavailable Encounter Details Date Type Department Care Team Description 03/07/2021 Clinical Communication Department of Rosemarie Quezada Cardiovascular Medicine A, R.N. in [facility] potato pancake frier [address] [facility] [address] [place] [phone] Social History Tobacco Use Types Packs/Day Years [...] do you attend scientologist or Never 2018 mandaen services? Do you belong to any clubs [...] Rosemarie Quezada R.N. - 03/07/2021 12:52 PM BRACE MAKER Call placed to Mrs. Metcalf's assisted Living facility to relay that Dr. Villegas did review the most recent monitor and did not see any rhythm issues of concern at this time so no recommendations for change in plan of care. They are requesting a copy of the monitor report be faxed to [phone] [facility]. I will see if Dr. Villegas's medical practice manager can fax that information to them E MAKER documented in this encounter Plan of Treatment Not on filedocumented as of this encounter Visit Diagnoses Not on filedocumented in this encounter Additional Health Concerns Assessment Noted Time PHQ-9 Depression Total Score: 11 05/04/2013 4:05 PM CS T documented as of this encounter Care Teams Photogrammetric Engineer Relationship Specialty Start Date End Date Elsewhere, Pcp PCP - General Internal Medicine 07/27/18 documented as of this encounter
--- OUTSIDE RECORDS SUMMARY | 2022-02-26 09:07 | XMS_ITS | Encounter Summary ---
:1955 Author Organization [facility] Address [address] [place] [address] Care Team Providers Name Role Phone Elsewhere, Pcp Primary Care Provider Unavailable Reason for Referral Outpatient (Routine) - Closed Specialty Diagnoses / Procedures Referred By Contact Refer red To Contact Diagnoses Flutter Atrial (HCC) [facility] Heart Rhythm [facility] (Holter) M.DEdilma [address] [place] [address] Referral ID Status Reason Start Date Expiration Date Visits Requ ested Visits Authorized [id number] Closed 01/30/2021 01/30/2022 1 1 GES SUPERVISOR Reason for Visit Outpatient (Routine) - Closed Specialty Diagnoses / Procedures Referred By Contact Refer red To Contact Diagnoses Flutter Atrial (HCC) Atrial Fibrillation Paroxysmal (HCC) [facility] Procedures ECG Heart Rhythm Monitor (Holter) MEdilmaDEdilma [address] [place] [address] Referral ID Status Reason Start Date Expiration Date Visits Requ ested Visits Authorized [id number] Closed 01/30/2021 01/30/2022 1 1 Encounter Details Date Type Department Care Team Description 02/27/2021 Hospital Encounter Department of Siontis, Flutter Atrial (HCC); Cardiovascular Diseases Pacheco Monroy iasixto Fibrillation Paroxysmal (HCC) in [facility] nasim Kellogg 200 [facility] 200 [place] [address] [phone] Social History Tobacco Use Types Packs/Day Years [...] do you attend spiritism or Never 2018 zoroastrian services? Do you [...] Routine 03/01/2021 9:47 PM Flutter A trial ([facility]) Results for this CLINIC TIN CAN FEEDER BRIDGES SUPERVISOR Atrial Fibrillation proced ure are in Paroxysmal ([facility]) the results section. documented in this encounter Results HOLTER MONITOR - IN CLINIC TIN CAN FEEDER (03/01/2021 9:47 PM BRIDGES SUPERVISOR) [facility] gist Method Time Signature Min Heart [...] AF Duration 0 duration INFOBIONIC MOME AF [place] 0 percent INFOBIONIC MOME Symptom Count 1 count INFOBIONIC MOME Specimen (Source) Anatomical Collection Method Collection Time Re ceived Time Location / / Volume Laterality 02/27/2021 1:24 PM BRIDGES SUPERVISOR Narrative INFOBIONIC MOME - 03/04/2021 10:59 AM [...] No ectopy was seen around this time. Shoe Folder: Jair Little/Solange Momin Procedure Note Peyman Cole [...] No ectopy was seen around this time. Shoe Folder: Jair Little/Solange Momin Porfirio Villegas M.D. CV [...] documented as of this encounter Care Teams Board Operator Relationship Specialty Start Date End Date Elsewhere, Pcp PCP - General Internal Medicine 07/27/18 documented as of this encounter
--- OUTSIDE RECORDS SUMMARY | 2022-02-26 09:07 | XMS_ITS | Encounter Summary ---
:1955 Author Organization [facility] Address [address] [place] [address] Care Team Providers Name Role Phone Elsewhere, Pcp Primary Care Provider Unavailable Reason for Referral Outpatient (Routine) - Closed Specialty Diagnoses / Procedures Referred By Contact Refer red To Contact Urology Brian Mathias M.D . [address] [address] Referral ID Status Reason Start Date Expiration Date Visits Requ ested Visits Authorized [id number] Closed 05/04/2020 05/04/2021 1 1 RVISOR RIDES Encounter Details Date Type Department Care Team Description 05/04/2020 Orders Only Department of Urology Brian Mathias Ki dney And Ureter in [place] Disorder (Prim raman Dx) [address] [address] Social History Tobacco Use Types Packs/Day Years [...] do you attend restorationism or Never 2018 pentecostalism services? Do you belong to any clubs or No 02/26/2019 organizations such as restorationism groups, unions, fraPheedo or athletic groups, or school groups? How [...] documented as of this encounter Care Teams Red Hat Linux Administrator Relationship Specialty Start Date End Date Elsewhere, Pcp PCP - General Internal Medicine 07/27/18 documented as of this encounter
--- OUTSIDE RECORDS SUMMARY | 2022-02-26 09:07 | XMS_ITS | Encounter Summary ---
:1955 Author Organization [facility] Address [address] [place] [address] Care Team Providers Name Role Phone Elsewhere, Pcp Primary Care Provider Unavailable Encounter Details Date Type Department Care Team Description 02/06/2021 Clinical Communication Department of Urology Stacy Mathias in Bess Velasco [place] [address] [place] [address] Social History Tobacco Use Types Packs/Day Years [...] do you attend restoration or Never 2018 taoism services? Do you [...] diary prior to a visit, thank you! RIBUTION SUPERVISOR Telephone Encounter - Valerie Stallworth - 02/06/2021 12:20 PM CST ~ Place needed orders Patient has referral for Polyuria, pt has orders for follow up visit and CT abdomen. Advise on additional testing needed for follow up with new indication. Thank you, RIBUTION SUPERVISOR documented in this encounter Plan of Treatment Not on filedocumented as of this encounter Visit Diagnoses Not on filedocumented in this encounter Additional Health Concerns Assessment Noted Time PHQ-9 Depression Total Score: 05/04/2013 4:05 PM CS T documented as of this encounter Care Teams Adjunct History Instructor Relationship Specialty Start Date End Date Elsewhere, Pcp PCP - General Internal Medicine 07/27/18 documented as of this encounter
--- OUTSIDE RECORDS SUMMARY | 2022-02-26 09:07 | XMS_ITS | Encounter Summary ---
:1955 Author Organization [facility] Address [address] [place] [address] Care Team Providers Name Role Phone Elsewhere, Pcp Primary Care Provider Unavailable Reason for Visit Outpatient (Routine) - Closed Specialty Diagnoses / Procedures Referred By Contact Refer red To Contact Otorhinolaryngology Diagnoses Hoarseness Chronic [facility] [address] [place] [address] Referral ID Status Reason Start Date Expiration Date Visits Requ ested Visits Authorized [id number] Closed 03/30/2020 03/30/2021 1 1 Encounter Details Date Type Department Care Team Description 04/11/2020 Comprehensive Visit Department of Wendy Kim ess Otorhinolaryngology in Michela Martínez [place], [place] P.A.-C., 200 [place] [address] 200 [facility] [phone] [place] [address] Social History Tobacco Use Types Packs/Day Years [...] do you attend caodaism or Never 2018 synagogue services? Do you [...] has non-labored breathing. No audible stridor. Skin: [place] and dry. Psych: Appropriate mood and affect. [...] see her back on a p.r.n. basis. OARDER documented in this encounter Plan of Treatment Not on filedocumented as of this encounter Visit Diagnoses Diagnosis Hoarseness Chronic documented in this encounter Additional Health Concerns Assessment Noted Time PHQ-9 Depression Total Score: 11 05/04/2013 4:05 PM CS T documented as of this encounter Care Teams Loss Prevention Representative Relationship Specialty Start Date End Date Elsewhere, Pcp PCP - General Internal Medicine 07/27/18 documented as of this encounter
--- OUTSIDE RECORDS SUMMARY | 2022-02-26 09:07 | XMS_ITS | Encounter Summary ---
:1955 Author Organization [facility] Address [address] [place] [address] Care Team Providers Name Role Phone Elsewhere, Pcp Primary Care Provider Unavailable Reason for Referral MRI/CAT/PET Scan (Routine) - Closed Specialty Diagnoses / Procedures Referred By Contact Refer red To Contact Radiology Diagnoses Kidney And Ureter Disorder Brian Mathias M.D. [facility] Procedures CT Abdomen with IV Contrast CT Abdomen without and with IV Contrast 200 [place] [address] Referral ID Status Reason Start Date Expiration Date Visits Requ ested Visits Authorized [id number] Closed 04/11/2020 04/11/2021 1 1 ARK PEELER Reason for Visit MRI/CAT/PET Scan (Routine) - Closed Specialty Diagnoses / Procedures Referred By Contact Refer red To Contact Radiology Diagnoses Kidney And Ureter Disorder Brian Mathias M.D. [facility] Procedures CT Abdomen with IV Contrast CT Abdomen without and with IV Contrast [address] [place] [address] Referral ID Status Reason Start Date Expiration Date Visits Requ ested Visits Authorized [id number] Closed 04/11/2020 04/11/2021 1 1 Encounter Details Date Type Department Care Team Description 04/24/2020 Hospital Encounter Department of Brian Mathias Kidney And Ureter Radiology, Prakash Miranda M.D. [facility], in [place], [place] [address] [place] [address] Social History Tobacco Use Types Packs/Day Years [...] do you attend yazdanism or Never 2018 restorationism services? Do you [...] for this IV CONTRAST (most inpatients PM TANBARK PEELER Disorder procedure a re in and all the results outpatients) section. documented in this encounter Results CT Abdomen with IV Contrast (04/24/2020 1:25 PM TANBARK PEELER) Anatomical Region Laterality Modality Abdomen, Abdominal RST LOS, Abdominal N/A Co mputed Tomography, Computed ARZ LOS, Abdominal FLA LOS Tomography Specimen (Source) Anatomical Collection Method Collection Time Re ceived Time Location / / Volume Laterality 04/24/2020 2:21 PM TANBARK PEELER Impressions 04/24/2020 2:47 PM TANBARK PEELER 1. No change since 11/30/2019 indeterminate 1.4 cm left renal mass likely representing primary renal neoplasm. 2. Small hiatal hernia. 3. Probable osteoporosis. Narrative 04/24/2020 2:47 PM TANBARK PEELER EXAM: ??CT ABDOMEN WITH IV CONTRAST COMPARISON: [...] mg iodine/mL solution Given 04/24/2020 1:16 PM TANBARK PEELER 1 40 mL 1-200 mL (OMNIPAQUE) 1-200 mL, intravenous, Once in imaging, contrast, Starting on Fri04/24/20 at 1238, For 1 dose, Imaging Protocol Orders, Dose per Radiant Medication Guidelines sodium chloride (PF) 0.9 % injection 1-1 00 mL Given 04/24/2020 1:16 PM TANBARK PEELER 50 mL 1-100 mL, intravenous, Once, On Fri04/24/20 at 1245, For 1 dose, Imaging Protocol Orders documented in this encounter Additional Health Concerns Assessment Noted Time PHQ-9 Depression Total Score: 11 05/04/2013 4:05 PM CS T documented as of this encounter Care Teams Ship Pilot Dispatcher Relationship Specialty Start Date End Date Elsewhere, Pcp PCP - General Internal Medicine 07/27/18 documented as of this encounter
--- OUTSIDE RECORDS SUMMARY | 2022-02-26 09:07 | XMS_ITS | Encounter Summary ---
:1955 Author Organization [facility] Address [address] [place] [address] Care Team Providers Name Role Phone Elsewhere, Pcp Primary Care Provider Unavailable Encounter Details Date Type Department Care Team Description 05/02/2021 Hospital Encounter Department of Kristen Watts, Kidney And Ureter Disorder; Laboratory Medicine Bess henderson; and Pathology, Diabetes Berna itus Type 2 (HCC) [facility] in [place], [place] [address] [place] [address] Social History Tobacco Use Types Packs/Day Years [...] do you attend bahai or Never 2018 hoahaoism services? Do you [...] AM Diabetes Mellitu s Results for this DIET ATTENDANT Type 2 (HCC) procedure are i n the results section. BASIC METABOLIC Routine 05/02/2021 10:07 AM Mass Kidney Resul ts for this PANEL, S/P DIET ATTENDANT procedure are i n the results section. documented in this encounter Results (ABNORMAL) Hemoglobin A1c (05/02/2021 10:07 AM DIET ATTENDANT) P athologist Signature Hemoglobin A1c, 6.7 (H) 4.0 - 5.6 05/02/2021 DTL B % 10:48 AM DIET ATTENDANT Comment: Hemoglobin A1c values greater than or eq ual to 6.5 percent are diagnostic for diabetes mellitus. ?? Diagnosis should be confirmed by repeat testing. ??In diabet ic patients, HbA1c goals should be discussed with healthcar e provider. Specimen Anatomical Collection Method Collection Time Receive d Time (Source) Location / / Volume Laterality Blood (Blood, 05/02/2021 10:07 05/02/2021 Venous) AM DIET ATTENDANT 10:27 AM DIET ATTENDANT Kristen Watts M.D. LAB BLOOD ADD-ON Performing Organization Address City/State/ZIP Code Phon e Number [facility] - [address] [place] [address] [facility] [place] [address] [facility] 200 [facility] Basic Metabolic Panel (05/02/2021 10:07 AM DIET ATTENDANT) P athologist Signature Potassium, S 4.1 3.6 - 5.2 05/02/2021 DTL mmol/L 11:21 AM DIET ATTENDANT Sodium, S 141 135 - 145 05/02/2021 DTL mmol/L 11:21 AM DIET ATTENDANT Chloride, S 103 98 - 107 05/02/2021 DTL mmol/L 11:21 AM DIET ATTENDANT Bicarbonate, S 26 22 - 29 05/02/2021 DTL mmol/L 11:21 AM DIET ATTENDANT Anion Gap 12 7 - 15 05/02/2021 DTL 11:21 AM DIET ATTENDANT BUN (Blood Urea 12 6 - 21 05/02/2021 DTL Nitrogen), S mg/dL 11:21 AM DIET ATTENDANT Creatinine 0.92 0.59 - 05/02/2021 DTL 1.04 mg/dL 11:21 AM DIET ATTENDANT eGFR-Non 66 >=60 05/02/2021 DTL Black/ mL/min/BSA 11:21 AM DIET ATTENDANT [place] Comment: ----ADDITIONAL INFORMATION---- Estimated GFR calculated using the 2009 CKD_EPI creatinine equation. eGFR-Black/ 76 >=60 mL/min/BSA 2021 11:21 AM DIET ATTENDANT DTL Comment: ----ADDITIONAL INFORMATION---- Estimated GFR calculated using the 2009 CKD_EPI creatinine equation. Calcium, Total, S 9.3 8.8 - 10.2 mg/dL 05/02/2021 11:2 1 AM DIET ATTENDANT DTL Glucose, S 128 70 - 140 mg/dL 05/02/2021 11:21 AM DIET ATTENDANT DTL Specimen Anatomical Collection Method Collection Time Receive d Time (Source) Location / / Volume Laterality Blood (Blood, 05/02/2021 10:07 05/02/2021 Venous) AM DIET ATTENDANT 10:54 AM DIET ATTENDANT Kristen Watts M.D. LAB BLOOD ADD-ON Performing Organization Address City/State/ZIP Code Phon e Number [facility] - [address] [place], [place] [address] [facility] [place] [address] [facility] [address] documented in this encounter Visit Diagnoses Diagnosis Kidney And Ureter Disorder Mass Kidney Diabetes Mellitus Type 2 (HCC) documented in this encounter Additional Health Concerns Assessment Noted Time PHQ-9 Depression Total Score: 11 05/04/2013 4:05 PM CS T documented as of this encounter Care Teams Automobile Dealer Relationship Specialty Start Date End Date Elsewhere, Pcp PCP - General Internal Medicine 07/27/18 documented as of this encounter
--- OUTSIDE RECORDS SUMMARY | 2022-02-26 09:07 | XMS_ITS | Encounter Summary ---
:1955 Author Organization [facility] Address [address] [place] [address] Care Team Providers Name Role Phone Elsewhere, Pcp Primary Care Provider Unavailable Encounter Details Date Type Department Care Team Description 04/07/2020 Hospital Encounter Department of Josh Rodriguez For Laboratory Medicine Geeta Urias M.D. Screen ing For Other in [place], Viral Disease [facility] (COVID-19) [address] [place] [address] Social History Tobacco Use Types Packs/Day Years [...] do you attend yazdanism or Never 2018 denominational services? Do you [...] For Re sults for this RNA, V REORDERING CLERK Screening For Other procedur e are in Viral Diseases the results (COVID-19) section. documented in this encounter Results SARS Coronavirus-2 RNA, V Asymptomatic (04/07/2020 9:12 AM REORDERING CLERK) [facility] Method Time Signature SARS-CoV-2 Swab, 04/07/2020 MKTO Specimen Nasopharynx 7:58 PM REORDERING CLERK Source SARS CoV-2 Undetected Undetected 04/07/2020 ARTIS RNA, TMA 7:58 PM REORDERING CLERK Comment: SARS-CoV-2 RNA absent. This result does not rule out COVID-19 in the patient, as the sensitivity of the test depends o n the timing of the specimen collection and the quality of the specim en. Result should be correlated with patient's history and clinical presentat ion. ----ADDITIONAL INFORMATION---- This molecular amplification test was pe rformed using the Aptima SARS-CoV-2 assay ([employer] on the [employer] tem under emergency use authorization (EUA) by the U.S. Food and Drug Administ ration. Fact sheets for this EUA assay can be fo und at the following links: For Healthcare Providers: https://www.[employer] a.gov/media/043537/download For Patients: https://www.fda.gov/media/ 674558/download Specimen Anatomical Collection Method Collection Time Receive d Time (Source) Location / / Volume Laterality Varies 04/07/2020 9:12 AM 3:22 (Nasopharynx) REORDERING CLERK PM REORDERING CLERK Geeta Ware M.D. LAB MICROBIOLOGY - GENERAL O RDERABLES Performing Organization Address City/State/ZIP Code Phon e Number [facility]- [address] [place] [address] [place] [address] [address] documented in this encounter Visit Diagnoses Diagnosis Encounter For Screening For Other Viral Diseases (COVID-19) documented in this encounter Additional Health Concerns Infection Onset Date Last Indicated Resolved Time COVID19 Pending 04/07/2020 04/07/2020 04/07/2020 7:59 PM REORDERING CLERK Assessment Noted Time PHQ-9 Depression Total Score: 11 05/04/2013 4:05 PM CS T documented as of this encounter Care Teams Internal Recruiter Relationship Specialty Start Date End Date Elsewhere, Pcp PCP - General Internal Medicine 07/27/18 documented as of this encounter
--- OUTSIDE RECORDS SUMMARY | 2022-02-26 09:07 | XMS_ITS | Encounter Summary ---
:1955 Author Organization [facility] Address [address] [place] [address] Care Team Providers Name Role Phone Elsewhere, Pcp Primary Care Provider Unavailable Reason for Referral Outpatient (Routine) - Closed Specialty Diagnoses / Procedures Referred By Contact Refer red To Contact Diagnoses Flutter Atrial (HCC) Atrial Fibrillation Paroxysmal (HCC) [facility] Heart Rhythm Monitor (Holter) Bess [address] [place] [address] Referral ID Status Reason Start Date Expiration Date Visits Requ ested Visits Authorized [id number] Closed 01/30/2021 01/30/2022 1 1 LINE Encounter Details Date Type Department Care Team Description 01/30/2021 Orders Only Department of Family Caseworker, Flutter Atria l (HCC) (Primary Dx); Cardiovascular Medicine Bess Randall Atri al Fibrillation Paroxysmal (HCC) in [facility] 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 Do you belong to any clubs or No 02/26/2019 organizations such as uatsdin groups, unions, [employer]stream [employer] or athletic groups, or school groups? How [...] encounter Results HOLTER MONITOR - IN CLINIC AUTOMOTIVE EXHAUST EMISSIONS TECHNICIAN (03/01/2021 9:47 PM SORT LINE) [facility] gist Method Time Signature Min [...] AF Duration 0 duration INFOBIONIC MOME AF [place] 0 percent INFOBIONIC MOME Symptom Count 1 count INFOBIONIC MOME Specimen (Source) Anatomical Collection Method Collection Time Re ceived Time Location / / Volume Laterality 02/27/2021 1:24 PM SORT LINE Narrative INFOBIONIC MOME - 03/04/2021 10:59 AM [...] No ectopy was seen around this time. Carpenter Supervisor: Jair Little/Solange Momin Procedure Note Peyman Cole [...] No ectopy was seen around this time. Carpenter Supervisor: Jair Little/Solange Momin Porfirio Villegas M.D. CV [...] as of this encounter Care Teams Crane Manager Relationship Specialty Start Date End Date Elsewhere, Pcp PCP - General Internal Medicine 07/27/18 documented as of this encounter
--- OUTSIDE RECORDS SUMMARY | 2022-02-26 09:07 | XMS_ITS | Encounter Summary ---
:1955 Author Organization [facility] Address [address] [place] [address] Care Team Providers Name Role Phone Elsewhere, Pcp Primary Care Provider Unavailable Reason for Visit Outpatient (Routine) - Closed Specialty Diagnoses / Procedures Referred By Contact Refer red To Contact Diagnoses Other Polyuria Kristen Watts M.D. [facility] Procedures URO Uroflow [address] [place] [address] Referral ID Status Reason Start Date Expiration Date Visits Requ ested Visits Authorized [id number] Closed 02/06/2021 02/06/2022 1 1 Encounter Details Date Type Department Care Team Description 05/03/2021 Procedure visit Department of Kristen Watts M.D. Other Polyuria; Urology in Batsheva Harris, L.P.N. Feeling Of Incomplete Bladder Emptying; [place], [place] Eusebio Tran M.D. [address] [place] [phone] Frequency Urinary [address] [place] [phone] Social History Tobacco Use Types Packs/Day [...] do you attend religious or Never 2018 caodaism services? Do you [...] 0 to 10 pain scale post procedure. CLOTH FOLDER documented in this encounter Procedure Notes Eusebio [...] Low voided volume with low postvoid residual. CLOTH FOLDER documented in this encounter Plan of Treatment Not on filedocumented as of this encounter Procedures Procedure Name Priority Date/Time Associated Diagnosis Comme nts URO UROFLOW Routine 05/03/2021 10:45 AM Other Polyuria Result s for this HAND CLOTH FOLDER procedure are i n the results section . documented in this encounter Results URO Uroflow (05/03/2021 10:45 AM HAND CLOTH FOLDER) Narrative Eusebio Tran M.D. - 05/03/2021 10: [...] as of this encounter Care Teams Rn Delivery Relationship Specialty Start Date End Date Elsewhere, Pcp PCP - General Internal Medicine 07/27/18 documented as of this encounter
--- OUTSIDE RECORDS SUMMARY | 2022-02-26 09:08 | XMS_ITS | Encounter Summary ---
:1955 Author Organization [facility] Address [address] [place] [address] Care Team Providers Name Role Phone Elsewhere, Pcp Primary Care Provider Unavailable Reason for Visit Reason Comments NERIS Nurse Line Encounter Details Date Type Department Care Team Description 03/20/2020 Clinical Communication Division of NERIS Harkins Nurse Bianca Pulmonary Medicine Bess Moreira in [place], [address] [place] [address] [place] [address] [place], [place] [phone] (Work) [phone] Social History Tobacco Use Types Packs/Day Years [...] do you attend sabianist or Never 2018 confucianism services? Do you [...] Patient Requesting COVID PCR Test OTG COVID-19 [place] Patient Requesting COVID PCR Test). In the past 20 days have you had a swab for COVID that tested positive? no Route reply to: justynt pul appt office/vl Scheduling Contact Number: [phone] HT NURSE documented in this encounter Plan of Treatment Not on filedocumented as of this encounter Visit Diagnoses Not on filedocumented in this encounter Additional Health Concerns Assessment Noted Time PHQ-9 Depression Total Score: 11 05/04/2013 4:05 PM CS T documented as of this encounter Care Teams Population Health Coach Relationship Specialty Start Date End Date Elsewhere, Pcp PCP - General Internal Medicine 07/27/18 documented as of this encounter
--- OUTSIDE RECORDS SUMMARY | 2022-02-26 09:08 | XMS_ITS | Encounter Summary ---
:1955 Author Organization [facility] Address [address] [place] [address] Care Team Providers Name Role Phone Elsewhere, Pcp Primary Care Provider Unavailable Reason for Referral Outpatient (Routine) - Closed Specialty Diagnoses / Procedures Referred By Contact Refer red To Contact Urology Zac Kuo M.D. [facility] 200 [place] [address] Referral ID Status Reason Start Date Expiration Date Visits Requ ested Visits Authorized [id number] Closed 01/05/2020 01/04/2021 1 1 Reason for Visit Appointment Request (Routine) - Closed Specialty Diagnoses / Procedures Referred By Contact Refer steven To Contact Urology Diagnoses Carcinoma Renal Cell Left (HCC) Kandace Mckeon D.O. [address] [place] [phone] Referral ID Status Reason Start Date Expiration Date Visits Requ ested Visits Authorized [id number] Closed 12/28/2019 12/27/2020 1 1 Encounter Details Date Type Department Care Team Description 01/04/2020 Comprehensive Visit Department of Dane Kuo (Primary Dx); Urology in Zac Perez M.D. Chronic Obst ructive Pulmonary Disease Exacerbation (HCC) [place], [place] [address] [place] [phone] Social History Tobacco Use Types Packs/Day Years [...] do you attend gnosticist or Never 2018 amish services? Do you [...] at the request of Kandace Mckeon D.O. 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 When out in town she walks with [...] Name Type Priority Associated Diagnoses Order S [facility] Urology office Outpatient Referral Routine Expect ed: visit (clinic) 04/06/2020 (Approximate), Expires: 01/04/2023 documented as of this encounter Results (ABNORMAL) Basic Metabolic Panel (03/30/2020 3:11 PM SALES UTILITY REPRESENTATIVE) P athologist Signature Potassium, S 3.5 (L) 3.6 - 5.2 03/30/2020 DTL mmol/L 5:05 PM SALES UTILITY REPRESENTATIVE Sodium, S 144 135 - 145 03/30/2020 DTL mmol/L 5:05 PM SALES UTILITY REPRESENTATIVE Chloride, S 104 98 - 107 03/30/2020 DTL mmol/L 5:05 PM SALES UTILITY REPRESENTATIVE Bicarbonate, S 28 22 - 29 03/30/2020 DTL mmol/L 5:05 PM SALES UTILITY REPRESENTATIVE Anion Gap 12 7 - 15 03/30/2020 DTL 5:05 PM SALES UTILITY REPRESENTATIVE BUN (Blood Urea 7 6 - 21 03/30/2020 DTL Nitrogen), S mg/dL 5:05 PM SALES UTILITY REPRESENTATIVE Creatinine 0.99 0.59 - 03/30/2020 DTL 1.04 mg/dL 5:05 PM SALES UTILITY REPRESENTATIVE eGFR-Non 61 >=60 03/30/2020 DTL Black/ mL/min/BSA 5:05 PM SALES UTILITY REPRESENTATIVE Maldivian Comment: ----ADDITIONAL INFORMATION---- Estimated GFR calculated using the 2009 CKD_EPI creatinine equation. eGFR-Black/ 70 >=60 mL/min/BSA 2020 5:05 PM SALES UTILITY REPRESENTATIVE DTL Comment: ----ADDITIONAL INFORMATION---- Estimated GFR calculated using the 2009 CKD_EPI creatinine equation. Calcium, Total, S 9.1 8.8 - 10.2 mg/dL 03/30/2020 5:05 PM SALES UTILITY REPRESENTATIVE DTL Glucose, S 148 (H) 70 - 140 mg/dL 03/30/2020 5:05 PM SALES UTILITY REPRESENTATIVE D TL Specimen Anatomical Collection Method Collection Time Receive d Time (Source) Location / / Volume Laterality Blood (Blood, 03/30/2020 3:11 PM 03/30/19 3:34 Venous) SALES UTILITY REPRESENTATIVE PM SALES UTILITY REPRESENTATIVE Zac Kuo M.D. LAB BLOOD ADD-ON Performing Organization Address City/State/ZIP Code Phon e Number [facility] - [address] [place], [place] [address] [place] [address] [facility] [address] documented in this encounter Visit Diagnoses Diagnosis Mass Kidney - Primary Chronic Obstructive Pulmonary Disease Ex acerbation (HCC) documented in this encounter Additional Health Concerns Assessment Noted Time PHQ-9 Depression Total Score: 11 05/04/2013 4:05 PM CS T documented as of this encounter Care Teams School Cleaner Relationship Specialty Start Date End Date Elsewhere, Pcp PCP - General Internal Medicine 07/27/18 documented as of this encounter
--- OUTSIDE RECORDS SUMMARY | 2022-02-26 09:08 | XMS_ITS | Encounter Summary ---
:1955 Author Organization [facility] Address [address] [place] [address] Care Team Providers Name Role Phone Elsewhere, Pcp Primary Care Provider Unavailable Reason for Referral MRI/CAT/PET Scan (Routine) - Canceled Specialty Diagnoses / Procedures Referred By Contact Refer red To Contact Radiology Diagnoses Mass Kidney Geeta Rodriguez M.D. [facility] Procedures CT Abdomen Pelvis with IV Contrast [address] [place] [phone] Referral ID Status Reason Start Date Expiration Date Visits V isits Requested Authorized [id number] Canceled 03/30/2020 03/30/2021 1 1 ER Reason for Visit MRI/CAT/PET Scan (Routine) - Canceled Specialty Diagnoses / Procedures Referred By Contact Refer steven To Contact Radiology Diagnoses Mass Kidney Geeta Rodriguez M.D. [facility] Procedures CT Abdomen Pelvis with IV Contrast [address] [place] [address] Referral ID Status Reason Start Date Expiration Date Visits V isits Requested Authorized [id number] Canceled 03/30/2020 03/30/2021 1 1 Encounter Details Date Type Department Care Team Description 03/30/2020 Hospital Encounter Department of Radiology, Geeta Rodriguez Mass Kidney leandro Sagastume M.D. [place], [place] [address] [place] [address] Social History Tobacco Use Types Packs/Day [...] do you attend evangelical or Never 2018 orthodox services? Do you [...] documented as of this encounter Care Teams Smooth Stucco Resurfacer Relationship Specialty Start Date End Date Elsewhere, Pcp PCP - General Internal Medicine 07/27/18 documented as of this encounter
--- OUTSIDE RECORDS SUMMARY | 2022-02-26 09:08 | XMS_ITS | Encounter Summary ---
:1955 Author Organization [facility] Address [address] [place] [address] Care Team Providers Name Role Phone Elsewhere, Pcp Primary Care Provider Unavailable Reason for Referral MRI/CAT/PET Scan (Routine) - Closed Specialty Diagnoses / Procedures Referred By Contact Refer red To Contact Radiology Diagnoses Nodule Pulmonary Harish Harkins M.D. [facility] Procedures CT Chest without IV Contrast [address] [place] [address] Referral ID Status Reason Start Date Expiration Date Visits Requ ested Visits Authorized [id number] Closed 03/20/2020 03/20/2021 1 1 S ORDER PROCESSOR Reason for Visit MRI/CAT/PET Scan (Routine) - Closed Specialty Diagnoses / Procedures Referred By Contact Refer red To Contact Radiology Diagnoses Nodule Pulmonary Harish Harkins M.D. [facility] Procedures CT Chest without IV Contrast [address] [place] [address] Referral ID Status Reason Start Date Expiration Date Visits Requ ested Visits Authorized [id number] Closed 03/20/2020 03/20/2021 1 1 Encounter Details Date Type Department Care Team Description 03/30/2020 Hospital Encounter Department of Harish Harkins Nodu le Pulmonary RadiologyGarett M.D. Building, in 200 [place], [place] [address] [address] [place], [place] [phone] (Work) [phone] Social History Tobacco Use Types Packs/Day Years [...] do you attend pentecostal or Never 2018 spiritism services? Do you [...] for this IV CONTRAST (most inpatients AM SALES ORDER PROCESSOR procedure a re in and all the results outpatients) section. documented in this encounter Results CT Chest without IV Contrast (03/30/2020 10:26 AM SALES ORDER PROCESSOR) Anatomical Region Laterality Modality Chest, Thoracic RST LOS, Thoracic ARZ N/A Co mputed Tomography, Computed LOS, Thoracic FLA LOS Tomography Specimen (Source) Anatomical Collection Method Collection Time Re ceived Time Location / / Volume Laterality 03/30/2020 10:59 AM SALES ORDER PROCESSOR Impressions 03/30/2020 12:08 PM SALES ORDER PROCESSOR 1. Decrease in size of the left [...] recommendations are attached. Narrative 03/30/2020 12:08 PM SALES ORDER PROCESSOR EXAM: CT CHEST WITHOUT IV CONTRAST COMPARISON: [...] documented as of this encounter Care Teams Senior Director Creative Services Relationship Specialty Start Date End Date Elsewhere, Pcp PCP - General Internal Medicine 07/27/18 documented as of this encounter
--- OUTSIDE RECORDS SUMMARY | 2022-02-26 09:08 | XMS_ITS | Encounter Summary ---
:1955 Author Organization [facility] Address [address] [place] [address] Care Team Providers Name Role Phone Elsewhere, Pcp Primary Care Provider Unavailable Encounter Details Date Type Department Care Team Description 01/13/2020 Clinical Communication Department of Urology Zac Gonzalez in [place]asco M.[address] [phone] Social History Tobacco Use Types Packs/Day Years [...] do you attend adventist or Never 2018 christian services? Do you [...] they will be pushing Iris's MRI into [place]'s system today. documented in this encounter Plan of Treatment Not on filedocumented as of this encounter Visit Diagnoses Not on filedocumented in this encounter Additional Health Concerns Assessment Noted Time PHQ-9 Depression Total Score: 11 05/04/2013 4:05 PM CS T documented as of this encounter Care Teams Public Health Clinical Nurse Specialist Relationship Specialty Start Date End Date Elsewhere, Pcp PCP - General Internal Medicine 07/27/18 documented as of this encounter
--- OUTSIDE RECORDS SUMMARY | 2022-02-26 09:08 | XMS_ITS | Encounter Summary ---
:1955 Author Organization [facility] Address [address] [place] [address] Care Team Providers Name Role Phone Elsewhere, Pcp Primary Care Provider Unavailable Encounter Details Date Type Department Care Team Description 03/30/2020 Hospital Encounter Department of Laboratory Geeta Rodriguez [facility] Kidney Medicine and Pathology, R, [facility] [place], [place] [address] [place] [address] Social History Tobacco Use Types Packs/Day [...] do you attend congregational or Never 2018 alevism services? Do you [...] Kidney Results for this DIFFERENTIAL, B PM FRAME OPERATOR procedure ar e in the results section. ALANINE AMINOTRANSFERASE Routine 03/30/2020 3:11 [facility] Kidney Results for this (ALT), S/P PM FRAME OPERATOR procedure are i n the results section. ASPARTATE Routine 03/30/2020 3:11 [facility] Results for this AMINOTRANSFERASE (AST), PM FRAME OPERATOR proc edure are in S/P the results section. ALKALINE PHOSPHATASE, Routine 03/30/2020 3:11 [facility] Res ults for this S/P PM FRAME OPERATOR procedure are i n the results section. BASIC METABOLIC PANEL, Routine 03/30/2020 3:11 [facility] Re sults for this S/P PM FRAME OPERATOR procedure are i n the results section. documented in this encounter Results (ABNORMAL) CBC without Differential (03/30/2020 3:11 PM FRAME OPERATOR) [facility] Method Time Signature Hemoglobin 13.9 11.6 - 03/30/2020 DTL 15.0 g/dL 3:44 PM FRAME OPERATOR Hematocrit 42.8 35.5 - 03/30/2020 DTL 44.9 % 3:44 PM FRAME OPERATOR Erythrocytes 4.58 3.92 - 03/30/2020 DTL 5.13 3:44 PM FRAME OPERATOR x10(12)/L MCV 93.4 78.2 - 03/30/2020 DTL 97.9 fL 3:44 PM FRAME OPERATOR RBC Distrib Width 12.5 12.2 - 03/30/2020 DTL 16.1 % 3:44 PM FRAME OPERATOR Platelet Count 481 (H) 157 - 371 03/30/2020 DTL x10(9)/L 3:44 PM FRAME OPERATOR Leukocytes 10.9 (H) 3.4 - 9.6 03/30/2020 DTL x10(9)/L 3:44 PM FRAME OPERATOR Specimen Anatomical Collection Method Collection Time Receive d Time (Source) Location / / Volume Laterality Blood (Blood, 03/30/2020 3:11 PM 03/30/19 21 3:34 Venous) FRAME OPERATOR PM FRAME OPERATOR Geeta Ware M.D. LAB BLOOD ADD-ON Performing Organization Address City/State/ZIP Code Phon e Number [facility] - [address] [place], [place] [address] [facility] [place] [address] Laboratories-[facility] [address] ALT (Alanine Aminotransferase) (03/30/2020 3:11 PM FRAME OPERATOR) [facility] Method Time Signature Alanine 27 7 - 45 03/30/2020 DTL Aminotransferase U/L 5:05 PM FRAME OPERATOR (ALT), S Specimen Anatomical Collection Method Collection Time Receive d Time (Source) Location / / Volume Laterality Blood (Blood, 03/30/2020 3:11 PM 03/30/19 3:34 Venous) FRAME OPERATOR PM FRAME OPERATOR Geeta Ware M.D. LAB BLOOD ADD-ON Performing Organization Address City/[facility]/ZIP [facility] Phon e Number [facility] - [address] [place], [place] [address] [place] [address] AST (Aspartate Aminotransferase) (03/30/2020 3:11 PM FRAME OPERATOR) Patholo gist Method Time Signature Aspartate 22 8 - 43 03/30/2020 DTL Aminotransferase U/L 5:05 PM FRAME OPERATOR (AST), S Specimen Anatomical Collection Method Collection Time Receive d Time (Source) Location / / Volume Laterality Blood (Blood, 03/30/2020 3:11 PM 03/30/19 3:34 Venous) FRAME OPERATOR PM FRAME OPERATOR Geeta Ware M.D. LAB BLOOD ADD-ON Performing Organization Address City/[facility] Code Phon e Number [facility] - [address] (ABNORMAL) Alkaline Phosphatase (03/30/2020 3:11 PM FRAME OPERATOR) P athologist Signature Alkaline 116 (H) 35 - 104 03/30/2020 DTL Phosphatase, S U/L 5:05 PM FRAME OPERATOR Specimen Anatomical Collection Method Collection Time Receive d Time (Source) Location / / Volume Laterality Blood (Blood, 03/30/2020 3:11 PM 03/30/19 3:34 Venous) FRAME OPERATOR PM FRAME OPERATOR Geeta Ware M.D. LAB BLOOD ADD-ON Performing Organization Address City/[facility] Phon e Number [facility] - [address] (ABNORMAL) Basic Metabolic Panel (03/30/2020 3:11 PM FRAME OPERATOR) P athologist Signature Potassium, S 3.5 (L) 3.6 - 5.2 03/30/2020 DTL mmol/L 5:05 PM FRAME OPERATOR Sodium, S 144 135 - 145 03/30/2020 DTL mmol/L 5:05 PM FRAME OPERATOR Chloride, S 104 98 - 107 03/30/2020 DTL mmol/L 5:05 PM FRAME OPERATOR Bicarbonate, S 28 22 - 29 03/30/2020 DTL mmol/L 5:05 PM FRAME OPERATOR Anion Gap 12 7 - 15 03/30/2020 DTL 5:05 PM FRAME OPERATOR BUN (Blood Urea 7 6 - 21 03/30/2020 DTL Nitrogen), S mg/dL 5:05 PM FRAME OPERATOR Creatinine 0.99 0.59 - 03/30/2020 DTL 1.04 mg/dL 5:05 PM FRAME OPERATOR eGFR-Non 61 >=60 03/30/2020 DTL Black/ mL/min/BSA 5:05 PM FRAME OPERATOR Haitian Comment: ----ADDITIONAL INFORMATION---- Estimated GFR calculated using the 2009 CKD_EPI creatinine equation. eGFR-Black/ 70 >=60 mL/min/BSA 2020 5:05 PM FRAME OPERATOR DTL Comment: ----ADDITIONAL INFORMATION---- Estimated GFR calculated using the 2009 CKD_EPI creatinine equation. Calcium, Total, S 9.1 8.8 - 10.2 mg/dL 03/30/2020 5:05 PM FRAME OPERATOR DTL Glucose, S 148 (H) 70 - 140 mg/dL 03/30/2020 5:05 PM FRAME OPERATOR D TL Specimen Anatomical Collection Method Collection Time Receive d Time (Source) Location / / Volume Laterality Blood (Blood, 03/30/2020 3:11 PM 03/30/19 21 3:34 Venous) FRAME OPERATOR PM FRAME OPERATOR Zac Gonzalez M.D. LAB BLOOD ADD-ON Performing Organization Address City/State/ZIP Code Phon e Number [facility] - [address] [place], [place] [address] [facility] [place] [address] Laboratories-[facility] [address] documented in this encounter Visit Diagnoses Diagnosis Mass Kidney documented in this encounter Additional Health Concerns Assessment Noted Time PHQ-9 Depression Total Score: 11 05/04/2013 4:05 PM CS T documented as of this encounter Care Teams Camera Repair Technician Relationship Specialty Start Date End Date Elsewhere, Pcp PCP - General Internal Medicine 07/27/18 documented as of this encounter
--- OUTSIDE RECORDS SUMMARY | 2022-02-26 09:08 | XMS_ITS | Encounter Summary ---
:1955 Author Organization [facility] Address [address] [place] [address] Care Team Providers Name Role Phone Elsewhere, Pcp Primary Care Provider Unavailable Encounter Details Date Type Department Care Team Description 01/04/2020 Hospital Encounter Department of Zac Gonzalez Renal Cell Laboratory Medicine CBess Left (HC C) and Pathology, [facility] in [place], [place] [address] [place] [address] Social History Tobacco Use Types Packs/Day Years [...] do you attend cheondoism or Never 2018 samaritan services? Do you [...] Address City/State/ZIP Code Phon e Number [facility] - [address] [address] [facility] [place] [address] Laboratories-[address] (ABNORMAL) Urinalysis with Microscopic: Urine, Midstream (01/04/2020 12:26 PM CDT) [facility] gist Method Time Signature Source Midstream 01/04/2020 FREDY 12:26 PM CDT Appearance Normal Normal 01/04/2020 FREDY 1:38 PM CDT Osmolality, U 483 150 - 1150 01/04/2020 FREDY mOsm/kg 1:24 PM CDT pH, U 5.4 4.5 - 8.0 01/04/2020 FREDY 1:24 PM CDT Comment: ----ADDITIONAL INFORMATION---- This test was developed and its performa nce characteristics determined by [facility] in a manner co nsistent with CLIA [...] Address City/State/ZIP Code Phon e Number [facility] - [address] [place], [place] [address] [place] [address] Laboratories-[facility] [address] documented in this encounter Visit Diagnoses Diagnosis Carcinoma Renal Cell Left (HCC) documented in this encounter Additional Health Concerns Assessment Noted Time PHQ-9 Depression Total Score: 11 05/04/2013 4:05 PM CS T documented as of this encounter Care Teams Commissary Representative Relationship Specialty Start Date End Date Elsewhere, Pcp PCP - General Internal Medicine 07/27/18 documented as of this encounter
--- OUTSIDE RECORDS SUMMARY | 2022-02-26 09:08 | XMS_ITS | Encounter Summary ---
:1955 Author Organization [facility] Address [address] [place] [address] Care Team Providers Name Role Phone Elsewhere, Pcp Primary Care Provider Unavailable Encounter Details Date Type Department Care Team Description 01/04/2020 Hospital Encounter Department of Zac Gonzalez Renal Cell Radiology, [place] Bess Perez [facility], in [place], [place] [address] [place] [address] Social History Tobacco Use Types Packs/Day Years [...] do you attend bahai or Never 2018 episcopal services? Do you [...] documented as of this encounter Care Teams Zmt Operator Relationship Specialty Start Date End Date Elsewhere, Pcp PCP - General Internal Medicine 07/27/18 documented as of this encounter
--- OUTSIDE RECORDS SUMMARY | 2022-02-26 09:08 | XMS_ITS | Encounter Summary ---
:[address] [facility] Address [address] [place] [address] Care Team Providers Name Role Phone Elsewhere, Pcp Primary Care Provider Unavailable Encounter Details Date Type Department Care Team Description 01/04/2020 Hospital Encounter Department of Zac Gonzalez Renal Cell Laboratory Medicine CBess Left (HC C) and Pathology, [facility] in [place], [place] [address] [place] [address] Social History Tobacco Use Types Packs/Day Years [...] do you attend worship or Never 2018 uatsdin services? Do you [...] [facility] - [address] [place], [place] [address] [facility] [place] [address] Laboratories-[facility] [address] (ABNORMAL) ALT (Alanine [...] [facility] - [address] [place], [place] [address] [facility] [address] AST (Aspartate Aminotransferase) (01/04/2020 10:58 AM CDT) Patholo gist Method Time Signature Aspartate 33 8 - 43 01/04/2020 DTL Aminotransferase U/L 12:58 PM CDT (AST), S Specimen Anatomical Collection Method Collection Time Receive d Time (Source) Location / / Volume Laterality Blood (Blood, 01/04/2020 10:58 01/04/2020 Venous) AM CDT 11:38 AM CDT Zac Gonzalez M.D. LAB BLOOD ADD-ON Performing Organization Address City/[facility]/ZIP Code Phon e Number [facility] - [address] [place], [place] [address] [facility] [place] [address] [place] [address] [facility] Calcium, Total (01/04/2020 10:58 AM CDT) [...] [facility] - [address] [place], [place] [address] [facility] [place] [address] [place] [address] [facility] (ABNORMAL) CBC with Differential, Blood (01/04/2020 [...] [facility] [address] [place], [place] [address] [facility] [place] [address] Laboratories-[facility] [address] Creatinine with Estimated [...] LAB BLOOD ADD-ON Performing Organization Address City/[facility] Phon e Number [facility] - [address] BUN (Blood Urea Nitrogen) (01/04/2020 10:58 AM CDT) athologist Signature BUN (Blood Urea 9 6 - 21 01/04/2020 DTL Nitrogen), S mg/dL 12:58 PM CDT Specimen Anatomical Collection Method Collection Time Receive d Time (Source) Location / / Volume Laterality Blood (Blood, 01/04/2020 10:58 01/04/2020 Venous) AM CDT 11:38 AM CDT Zac Gonzalez M.D. LAB BLOOD ADD-ON Performing Organization Address City/State/[facility] Phon e Number [facility] - [address] Electrolyte (Chem 4) Panel (01/04/2020 10:58 [...] [facility] - [address] [place], [place] [address] [facility] [place] [address] Laboratories[facility] [address] documented in this encounter Visit Diagnoses Diagnosis Carcinoma Renal Cell Left (HCC) documented in this encounter Additional Health Concerns Assessment Noted Time PHQ-9 Depression Total Score: 11 05/04/2013 4:05 PM CS T documented as of this encounter Care Teams Air Pollution Auditor Relationship Specialty Start Date End Date Elsewhere, Pcp PCP - General Internal Medicine 07/27/18 documented as of this encounter
--- OUTSIDE RECORDS SUMMARY | 2022-02-26 09:08 | XMS_ITS | Encounter Summary ---
:1955 Author Organization [facility] Address [address] [place] [address] Care Team Providers Name Role Phone Elsewhere, Pcp Primary Care Provider Unavailable Reason for Referral MRI/CAT/PET Scan (Routine) - Closed Specialty Diagnoses / Procedures Referred By Contact Refer red To Contact Radiology Diagnoses Nodule Pulmonary Harish Harkins M.D. [facility] Procedures CT Chest without IV Contrast [address] [place] [address] Referral ID Status Reason Start Date Expiration Date Visits Requ ested Visits Authorized [id number] Closed 03/20/2020 03/20/2021 1 1 LINE OPERATOR Reason for Visit Reason Comments [facility] Triage Encounter Details Date Type Department Care Team Description 03/20/2020 Clinical Communication Division of Pulmonary Adonay Leal [facility] Triage Medicine in [place], [place] [address] [facility] [address] [place] [phone] Social History Tobacco Use [...] do you attend religious or Never 2018 scientology services? Do you [...] ASSESSMENT/RECOMMENDATION We will see Ms. Metcalf in [facility] with a dedicated CT chest to assess the nodule and recommend follow up as needed. Patient's case discussed with Dr. Harish Harkins. IMAGES NEEDED PRIOR TO CONSULT All images loaded into [employer], no additional requests needed. LINE OPERATOR documented in this encounter Plan of Treatment Not on filedocumented as of this encounter Results CT Chest without IV Contrast (03/30/2020 10:26 AM GLUE LINE OPERATOR) Anatomical Region Laterality Modality Chest, Thoracic RST LOS, Thoracic ARZ N/A Co mputed Tomography, Computed LOS, Thoracic FLA LOS Tomography Specimen (Source) Anatomical Collection Method Collection Time Re ceived Time Location / / Volume Laterality 03/30/2020 10:59 AM GLUE LINE OPERATOR Impressions 03/30/2020 12:08 PM GLUE LINE OPERATOR 1. Decrease in size of the [...] recommendations are attached. Narrative 03/30/2020 12:08 PM GLUE LINE OPERATOR EXAM: CT CHEST WITHOUT IV CONTRAST [...] documented as of this encounter Care Teams Hoop Cutter Relationship Specialty Start Date End Date Elsewhere, Pcp PCP - General Internal Medicine 07/27/18 documented as of this encounter
--- OUTSIDE RECORDS SUMMARY | 2022-02-26 09:08 | XMS_ITS | Encounter Summary ---
:1955 Author Organization [facility] Address [address] [place] [address] Care Team Providers Name Role Phone Elsewhere, Pcp Primary Care Provider Unavailable Reason for Visit Reason Comments Request for records Encounter Details Date Type Department Care Team Description 01/05/2020 Clinical Communication Department of Regine Gonzalez for records Urology in Zac Perez M.D. [place], [place] [address] [place] [address] Social History Tobacco Use Types [...] do you attend amish or Never 2018 congregation services? Do you [...] AM CDT Request for records faxed to [employer] Release of Information - FAX: [phone]. documented in this encounter Plan of Treatment Not on filedocumented as of this encounter Visit Diagnoses Not on filedocumented in this encounter Additional Health Concerns Assessment Noted Time PHQ-9 Depression Total Score: 11 05/04/2013 4:05 PM CS T documented as of this encounter Care Teams [employer] Wiring Technician Relationship Specialty Start Date End Date Elsewhere, Pcp PCP - General Internal Medicine 07/27/18 documented as of this encounter
--- OUTSIDE RECORDS SUMMARY | 2022-02-26 09:08 | XMS_ITS | Encounter Summary ---
:1955 Author Organization [facility] Address [address] [place] [address] Care Team Providers Name Role Phone Elsewhere, Pcp Primary Care Provider Unavailable Encounter Details Date Type Department Care Team Description 03/30/2020 Hospital Encounter Department of Laboratory Geeta Rodriguez [facility] Kidney Medicine and Pathology, [facility] [place], [place] [address] [place] [address] Social History Tobacco Use Types Packs/Day [...] do you attend latter-day or Never 2018 roman catholic services? Do [...] 03/30/2020 4:05 PM Res ults for this PHARMACY GRADUATE INTERN procedure are i n the results section. URINALYSIS WITH Routine 03/30/2020 4:05 PM Mass Kidney Result s for this MICROSCOPIC PHARMACY GRADUATE INTERN procedure are i n the results section. documented in this encounter Results (ABNORMAL) Microscopic Manual (03/30/2020 4:05 PM PHARMACY GRADUATE INTERN) P athologist Signature Microscopy Abnormal 03/30/2020 FREDY 6:27 PM PHARMACY GRADUATE INTERN WBC 4-10 /hpf 03/30/2020 FREDY 6:27 PM PHARMACY GRADUATE INTERN Comment: ----REFERENCE VALUE---- 1-3 ??(Males) 1-10 (Females) Casts, Hyaline 4-10 /lpf 03/30/2020 6:27 PM PHARMACY GRADUATE INTERN RE NA Squamous Epithelial 4-10 /hpf 03/30/2020 6:[address] FREDY Cells, U Bacteria Present (A) 03/30/2020 6:27 PM PHARMACY GRADUATE INTERN FREDY Crystals Calcium Oxalate 03/30/2020 6:27 PM PHARMACY GRADUATE INTERN R ALFA crystals present Specimen Anatomical Collection Method Collection Time Receive d Time (Source) Location / / Volume Laterality Urine 03/30/2020 4:05 PM 4:05 PHARMACY GRADUATE INTERN PM PHARMACY GRADUATE INTERN Geeta Ware M.D. LAB URINE ORDERABLES Performing Organization Address City/State/ZIP Code Phon e Number [facility] - [address] [place], [place] [address] [facility] [place] [address] Laboratories-[facility] [address] (ABNORMAL) Urinalysis with Microscopic: Urine, Clean Catch (03/30/2020 4:05 PM PHARMACY GRADUATE INTERN) [facility] gist Method Time Signature Source Midstream 03/30/2020 FREDY 4:05 PM PHARMACY GRADUATE INTERN Appearance Normal Normal 03/30/2020 FREDY 6:00 PM PHARMACY GRADUATE INTERN Osmolality, U 536 150 - 1150 03/30/2020 FREDY mOsm/kg 5:24 PM PHARMACY GRADUATE INTERN pH, U 6.1 4.5 - 8.0 03/30/2020 FREDY 5:24 PM PHARMACY GRADUATE INTERN Comment: ----ADDITIONAL INFORMATION---- This test was developed and its performa nce characteristics determined by [facility] in a manner co nsistent with CLIA requirements. This test has not bee n cleared or approved by the U.S. Food and Drug Admin istration. Glucose 16 (H) 0 - 15 mg/dL 03/30/2020 6:00 PM PHARMACY GRADUATE INTERN FREDY Protein, U 35 (H) <26 mg/dL 03/30/2020 6:00 PM PHARMACY GRADUATE INTERN FREDY Comment: ----ADDITIONAL INFORMATION---- On 09/17/2016 the total protein assay me thod changed resulting in approximately a 15% increase in prote in values. Protein/Osmolality 0.65 (H) <0.42 Ratio 03/30/2020 6:00 PM PHARMACY GRADUATE INTERN FREDY Comment: ----ADDITIONAL INFORMATION---- On 09/17/2016 the total protein assay me thod changed resulting in approximately a 15% increase in prote in values. Predicted 24 Hr Protein 454 mg/24 h 03/30/2020 6:00 PM PHARMACY GRADUATE INTERN FREDY Predicted Range 112-1839 mg/24 h 03/30/2020 6:00 PM PHARMACY GRADUATE INTERN R ALFA Hemoglobin, QL Negative Negative 03/30/2020 6:27 PM PHARMACY GRADUATE INTERN RE NA Specimen Anatomical Collection Method Collection Time Receive d Time (Source) Location / / Volume Laterality Urine (Urine, 03/30/2020 4:05 PM 03/30/19 4:05 Clean Catch) PHARMACY GRADUATE INTERN PM PHARMACY GRADUATE INTERN Geeta Ware M.D. LAB URINE ORDERABLES Performing Organization Address City/State/ZIP Code Phon e Number [facility] - [address] [place], [place] [address] [place] [address] [facility] [address] documented in this encounter Visit Diagnoses Diagnosis Mass Kidney documented in this encounter Additional Health Concerns Assessment Noted Time PHQ-9 Depression Total Score: 11 05/04/2013 4:05 PM CS T documented as of this encounter Care Teams Aeroplane Pilot Relationship Specialty Start Date End Date Elsewhere, Pcp PCP - General Internal Medicine 07/27/18 documented as of this encounter
--- OUTSIDE RECORDS SUMMARY | 2022-02-26 09:08 | XMS_ITS | Encounter Summary ---
:1955 Author Organization [facility] Address [address] [place] [address] Care Team Providers Name Role Phone Elsewhere, Pcp Primary Care Provider Unavailable Reason for Referral Outpatient (Routine) - Closed Specialty Diagnoses / Procedures Referred By Contact Refer red To Contact Pulmonary Medicine Geeta Rodriguez [place] M.D. [address] [place] [address] Referral ID Status Reason Start Date Expiration Date Visits Requ ested Visits Authorized [id number] Closed 03/30/2020 03/30/2021 1 1 POINT PUMPING SUPERVISOR MRI/CAT/PET Scan (Routine) - Closed Specialty Diagnoses / Procedures Referred By Contact Refer red To Contact Radiology Diagnoses Nodule Pulmonary Geeta Rodriguez M.D. [place] Procedures CT Chest without IV Contrast [address] [place] [address] Referral ID Status Reason Start Date Expiration Date Visits Requ ested Visits Authorized [id number] Closed 03/30/2020 03/30/2021 1 1 POINT PUMPING SUPERVISOR Outpatient (Routine) - Closed Specialty Diagnoses / Procedures Referred By Contact Refer red To Contact Otorhinolaryngology Diagnoses Hoarseness Chronic Geeta Rodriguez [place] M.D. [address] [place] [address] Referral ID Status Reason Start Date Expiration Date Visits Requ ested Visits Authorized [id number] Closed 03/30/2020 03/30/2021 1 1 POINT PUMPING SUPERVISOR Reason for Visit Appointment Request (Routine) - Closed Specialty Diagnoses / Procedures Referred By Contact Refer red To Contact Pulmonary Medicine Diagnoses Nodule Pulmonary Referral ID Status Reason Start Date Expiration Date Visits Requ ested Visits Authorized [id number] Closed 02/29/2020 02/28/2021 1 1 Encounter Details Date Type Department Care Team Description 03/30/2020 Comprehensive Visit Division of Harish Ware, Holli P ulmonary (Primary Dx); Pulmonary Medicine Geeta Urias M.D. arsen ess Chronic; in [facility] [address] [place] [address] Social History Tobacco Use Types Packs/Day Years [...] do you attend spiritism or Never 2018 anabaptist services? Do you [...] Comments Blood Pressure 148/86 03/30/2020 1:16 PM WELL POINT PUMPING SUPERVISOR Pulse 61 03/30/2020 1:16 PM WELL POINT PUMPING SUPERVISOR Temperature 36.1 ??C (97 ??F) 03/30/2020 1:16 PM WELL POINT PUMPING SUPERVISOR Respiratory Rate - - Oxygen Saturation 98% 03/30/2020 1:16 PM WELL POINT PUMPING SUPERVISOR Inhaled Oxygen Concentration - - Weight 90.2 kg (198 lb 13.7 oz) 03/30/2020 1:16 PM WELL POINT PUMPING SUPERVISOR Height 164.4 cm (5' 4.72) 03/30/2020 1:16 PM WELL POINT PUMPING SUPERVISOR Body Mass Index 33.37 03/30/2020 1:16 PM WELL POINT PUMPING SUPERVISOR documented in this encounter Consult Notes Geeta [...] intact. No evidence of disorganizedthinking. Reliable history portfolio management marketing. DIAGNOSTIC REVIEW I have reviewed the patient's [...] spent a total of 45 minutes in [id number] time performing a review of the record and/or discussion with the patient/caregiver as described above. POINT PUMPING SUPERVISOR Jil Mendoza M.D. - 03/30/2020 1:30 PM [...] Dr. Harish Ware's note from today's date. POINT PUMPING SUPERVISOR documented in this encounter Plan of [...] Microscopic: Urine, Clean Catch (03/30/2020 4:05 PM WELL POINT PUMPING SUPERVISOR) [facility] Method Time Signature Source Midstream 03/30/2020 FREDY 4:05 PM WELL POINT PUMPING SUPERVISOR Appearance Normal Normal 03/30/2020 FREDY 6:00 PM WELL POINT PUMPING SUPERVISOR Osmolality, U 536 150 - 1150 03/30/2020 FREDY mOsm/kg 5:24 PM WELL POINT PUMPING SUPERVISOR pH, U 6.1 4.5 - 8.0 03/30/2020 FREDY 5:24 PM WELL POINT PUMPING SUPERVISOR Comment: ----ADDITIONAL INFORMATION---- This test was developed and its performa nce characteristics determined by [facility] in a manner co nsistent with CLIA requirements. This test has not bee n cleared or approved by the U.S. Food and Drug Admin istration. Glucose 16 (H) 0 - 15 mg/dL 03/30/2020 6:00 PM WELL POINT PUMPING SUPERVISOR FREDY Protein, U 35 (H) <26 mg/dL 03/30/2020 6:00 PM WELL POINT PUMPING SUPERVISOR FREDY Comment: ----ADDITIONAL INFORMATION---- On 09/17/2016 the total protein assay me thod changed resulting in approximately a 15% increase in prote in values. Protein/Osmolality 0.65 (H) <0.42 Ratio 03/30/2020 6:00 PM WELL POINT PUMPING SUPERVISOR FREDY Comment: ----ADDITIONAL INFORMATION---- On 09/17/2016 the total protein assay me thod changed resulting in approximately a 15% increase in prote in values. Predicted 24 Hr Protein 454 mg/24 h 03/30/2020 6:00 PM WELL POINT PUMPING SUPERVISOR FREDY Predicted Range 112-1839 mg/24 h 03/30/2020 6:00 PM WELL POINT PUMPING SUPERVISOR R ALFA Hemoglobin, QL Negative Negative 03/30/2020 6:27 PM WELL POINT PUMPING SUPERVISOR RE NA Specimen Anatomical Collection Method Collection Time Receive d Time (Source) Location / / Volume Laterality Urine (Urine, 03/30/2020 4:05 PM 03/30/19 4:05 Clean Catch) WELL POINT PUMPING SUPERVISOR PM WELL POINT PUMPING SUPERVISOR Geeta Ware M.D. LAB URINE ORDERABLES Performing Organization Address City/State/ZIP Code Phon e Number [facility] - [address] [place], [place] [address] [place] [address] Laboratories-[facility] 200 [facility] (ABNORMAL) CBC without Differential (03/30/2020 3:11 PM WELL POINT PUMPING SUPERVISOR) [facility] Method Time Signature Hemoglobin 13.9 11.6 - 03/30/2020 DTL 15.0 g/dL 3:44 PM WELL POINT PUMPING SUPERVISOR Hematocrit 42.8 35.5 - 03/30/2020 DTL 44.9 % 3:44 PM WELL POINT PUMPING SUPERVISOR Erythrocytes 4.58 3.92 - 03/30/2020 DTL 5.13 3:44 PM WELL POINT PUMPING SUPERVISOR x10(12)/L MCV 93.4 78.2 - 03/30/2020 DTL 97.9 fL 3:44 PM WELL POINT PUMPING SUPERVISOR RBC Distrib Width 12.5 12.2 - 03/30/2020 DTL 16.1 % 3:44 PM WELL POINT PUMPING SUPERVISOR Platelet Count 481 (H) 157 - 371 03/30/2020 DTL x10(9)/L 3:44 PM WELL POINT PUMPING SUPERVISOR Leukocytes 10.9 (H) 3.4 - 9.6 03/30/2020 DTL x10(9)/L 3:44 PM WELL POINT PUMPING SUPERVISOR Specimen Anatomical Collection Method Collection Time Receive d Time (Source) Location / / Volume Laterality Blood (Blood, 03/30/2020 3:11 PM 03/30/19 21 3:34 Venous) WELL POINT PUMPING SUPERVISOR PM WELL POINT PUMPING SUPERVISOR Geeta Ware M.D. LAB BLOOD ADD-ON Performing Organization Address City/State/ZIP Code Phon e Number [facility] - [address] [place], [place] [address] [facility] [address] ALT (Alanine Aminotransferase) (03/30/2020 3:11 PM WELL POINT PUMPING SUPERVISOR) [facility] gist Method Time Signature Alanine 27 7 - 45 03/30/2020 DTL Aminotransferase U/L 5:05 PM WELL POINT PUMPING SUPERVISOR (ALT), S Specimen Anatomical Collection Method Collection Time Receive d Time (Source) Location / / Volume Laterality Blood (Blood, 03/30/2020 3:11 PM 03/30/19 21 3:34 Venous) WELL POINT PUMPING SUPERVISOR PM WELL POINT PUMPING SUPERVISOR Geeta Ware M.D. LAB BLOOD ADD-ON Performing Organization Address City/State/ZIP Code Phon e Number [facility] - [address] [place], [place] [address] [place] [address] AST (Aspartate Aminotransferase) (03/30/2020 3:11 PM WELL POINT PUMPING SUPERVISOR) [facility] Method Time Signature Aspartate 22 8 - 43 03/30/2020 DTL Aminotransferase U/L 5:05 PM WELL POINT PUMPING SUPERVISOR (AST), S Specimen Anatomical Collection Method Collection Time Receive d Time (Source) Location / / Volume Laterality Blood (Blood, 03/30/2020 3:11 PM 03/30/19 21 3:34 Venous) WELL POINT PUMPING SUPERVISOR PM WELL POINT PUMPING SUPERVISOR Geeta Ware M.D. LAB BLOOD ADD-ON Performing Organization Address City/State/ZIP Code Phon e Number [facility] - [address] [place], [place] [address] [facility] [place], [place] [id number] [place] [address] (ABNORMAL) Alkaline Phosphatase (03/30/2020 3:11 PM WELL POINT PUMPING SUPERVISOR) P athologist Signature Alkaline 116 (H) 35 - 104 03/30/2020 DTL Phosphatase, S U/L 5:05 PM WELL POINT PUMPING SUPERVISOR Specimen Anatomical Collection Method Collection Time Receive d Time (Source) Location / / Volume Laterality Blood (Blood, 03/30/2020 3:11 PM 03/30/19 21 3:34 Venous) WELL POINT PUMPING SUPERVISOR PM WELL POINT PUMPING SUPERVISOR Geeta Ware M.D. LAB BLOOD ADD-ON Performing Organization Address City/State/[facility] Code Phon e Number [facility] - [address] [place], [place] [address] [facility] [place] [address] [facility] [address] documented in this encounter Visit Diagnoses Diagnosis Nodule Pulmonary - Primary Hoarseness Chronic Mass Kidney documented in this encounter Additional Health Concerns Assessment Noted Time PHQ-9 Depression Total Score: 11 05/04/2013 4:05 PM CS T documented as of this encounter Care Teams Regional Facilities Manager Relationship Specialty Start Date End Date Elsewhere, Pcp PCP - General Internal Medicine 07/27/18 documented as of this encounter
--- OUTSIDE RECORDS SUMMARY | 2022-02-26 09:09 | XMS_ITS | Encounter Summary ---
:1955 Author Organization [facility] Address [address] [place] [address] Care Team Providers Name Role Phone Elsewhere, Pcp Primary Care Provider Unavailable Reason for Visit Reason Comments Follow-up Encounter Details Date Type Department Care Team Description 08/24/2019 Clinical Communication Department of Kitty Mchugh [facility] Cardiovascular Medicine R.N. in [facility] rotary planer set up operator [address] [place] [address] Social History Tobacco Use Types Packs/Day [...] do you attend christianity or Never 2018 jew services? Do you [...] GAIL Morelos from [facility]; [place], [place]. She was calling seeking verification that [...] was shared with her primary care provider. iVviana wished for me to confirm that Destiny [...] name is Tamy and the number is [phone], ext #[phone]. Would you mind given them [...] documented as of this encounter Care Teams Supervisory Historian Relationship Specialty Start Date End Date Elsewhere, Pcp PCP - General Internal Medicine 07/27/18 documented as of this encounter
--- OUTSIDE RECORDS SUMMARY | 2022-02-26 09:09 | XMS_ITS | Encounter Summary ---
:1955 Author Organization [facility] Address [address] [place] [address] Care Team Providers Name Role Phone Elsewhere, Pcp Primary Care Provider Unavailable Reason for Referral Outpatient (Routine) - Closed Specialty Diagnoses / Procedures Referred By Contact Refer red To Contact Diagnoses Flutter Atrial (HCC) Atrial Fibrillation Paroxysmal (HCC) Tucker Rutherford P.A.-C. [facility] Procedures ECG Heart rhythm monitor (Holter) [address] [place] [address] Referral ID Status Reason Start Date Expiration Date Visits Requ ested Visits Authorized [id number] Closed 04/21/2019 04/20/2020 1 1 Reason for Visit Outpatient (Routine) - Closed Specialty Diagnoses / Procedures Referred By Contact Refer red To Contact Diagnoses Flutter Atrial (HCC) Atrial Fibrillation Paroxysmal (HCC) Tucker Rutherford P.A.-C. [facility] Procedures ECG Heart rhythm monitor (Holter) [address] [place] [address] Referral ID Status Reason Start Date Expiration Date Visits Requ ested Visits Authorized [id number] Closed 04/21/2019 04/20/2020 1 1 Encounter Details Date Type Department Care Team Description 08/18/2019 Hospital Department of Tucker Rutherford Flutter Atria l (HCC); Encounter Cardiovascular Brian Caballero Atrial Fibrillation Paroxysmal (HCC) Diseases in [place], [facility] [address] [place], [place] [address] [place], [place] [phone] [address] (Work) [phone] Social History Tobacco Use Types Packs/Day Years [...] Atr ial (HCC) Results for this CLINIC MAINTENANCE AND ENGINEERING MANAGER AM CDT Atrial Fibrillation proced ure are in Paroxysmal (HCC) the results section. documented in this encounter Results HOLTER MONITOR - IN CLINIC MAINTENANCE AND ENGINEERING MANAGER (08/18/2019 10:48 AM CDT) [facility] gist Method Time Signature SVE Max [...] count HOLTER Hour SENTINEL Max Heart Rate [id number] HOLTER Time SENTINEL Specimen (Source) Anatomical Collection [...] as of this encounter Care Teams Assistant Professor Of Spanish Relationship Specialty Start Date End Date Elsewhere, Pcp PCP - General Internal Medicine 07/27/18 documented as of this encounter
--- OUTSIDE RECORDS SUMMARY | 2022-02-26 09:09 | XMS_ITS | Encounter Summary ---
:1955 Author Organization [facility] Address [address] [place] [address] Care Team Providers Name Role Phone Elsewhere, Pcp Primary Care Provider Unavailable Reason for Referral MRI/CAT/PET Scan (Routine) - Closed Specialty Diagnoses / Procedures Referred By Contact Refer red To Contact Radiology Diagnoses Flutter Atrial (HCC) Atrial Fibrillation Paroxysmal (HCC) Tucker Rutherford P.A.-C. [facility] Procedures CT Cardiac Angiogram Pulmonary Veins with IV [address] [place] [address] Referral ID Status Reason Start Date Expiration Date Visits Requ ested Visits Authorized [id number] Closed 04/21/2019 04/20/2020 1 1 Reason for Visit MRI/CAT/PET Scan (Routine) - Closed Specialty Diagnoses / Procedures Referred By Contact Refer red To Contact Radiology Diagnoses Flutter Atrial (HCC) Atrial Fibrillation Paroxysmal (HCC) Tucker Rutherford P.A.-C. [facility] Procedures CT Cardiac Angiogram Pulmonary Veins with IV [address] [place] [address] Referral ID Status Reason Start Date Expiration Date Visits Requ ested Visits Authorized [id number] Closed 04/21/2019 04/20/2020 1 1 Encounter Details Date Type Department Care Team Description 08/18/2019 Hospital Encounter Department of MichellenTucker, Lynettet ter Atrial (HCC); Radiology, Garett Torres Atrial Fibrillation Paroxysmal (HCC); Building, in [address] [place] [address] Atrial Fibrillation Paroxysmal (HCC) [facility] [address] [facility] [phone] [place], [place] (Work) [phone] Social History Tobacco Use Types Packs/Day Years [...] do you attend restoration or Never 2018 zoroastrian services? Do you [...] thoracic spine. 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 GUIDELINES FOR FOLLOW-UP of newly [...] thoracic spine. 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 GUIDELINES FOR FOLLOW-UP of newly [...] fo r recommended surveillance. Tucker Rutherford P.A.-C. [facility] PROCEDURES Creatinine, POCT (08/18/2019 9:20 AM [...] Number POC AMALIA PERFORMING [address] [place] [address] LABS PCDT [facility] [place] [address] [place] [facility] [address] Creatinine, POCT (08/18/2019 9:20 AM CDT) P athologist Signature eGFR-Black/Afri >90 >=60 08/18/2019 PCMO can Malaysian, mL/min/BSA 9:25 AM CDT POCT Comment: ----ADDITIONAL [...] City/State/ZIP Code Phon e Number POC RST RELIGIOUS [address] [place] [address] OUTPATIENT LABS PCMO [facility] [place] [address] [place] [facility] [address] documented in this [...] documented as of this encounter Care Teams Berry Planter Relationship Specialty Start Date End Date Elsewhere, Pcp PCP - General Internal Medicine 07/27/18 documented as of this encounter
--- OUTSIDE RECORDS SUMMARY | 2022-02-26 09:09 | XMS_ITS | Encounter Summary ---
:1955 Author Organization [facility] Address [address] [place] [address] Care Team Providers Name Role Phone Elsewhere, Pcp Primary Care Provider Unavailable Reason for Referral Outpatient (Routine) - Closed Specialty Diagnoses / Procedures Referred By Contact Refer red To Contact Diagnoses Flutter Atrial (HCC) Atrial Fibrillation Paroxysmal (HCC) Tucker Rutherford P.A.-C. [facility] Procedures Echo Transthoracic (TTE) [address] [place] [address] Referral ID Status Reason Start Date Expiration Date Visits Requ ested Visits Authorized [id number] Closed 04/21/2019 04/20/2020 1 1 Reason for Visit Outpatient (Routine) - Closed Specialty Diagnoses / Procedures Referred By Contact Refer red To Contact Diagnoses Flutter Atrial (HCC) Atrial Fibrillation Paroxysmal (HCC) Tucker Rutherford P.A.-C. [facility] Procedures Echo Transthoracic (TTE) [address] [place] [address] Referral ID Status Reason Start Date Expiration Date Visits Requ ested Visits Authorized [id number] Closed 04/21/2019 04/20/2020 1 1 Encounter Details Date Type Department Care Team Description 08/19/2019 Hospital Department of [place], Tucker Flutter Atria l (HCC); Encounter Cardiovascular Brian Caballero Atrial Fibrillation Paroxysmal (HCC) Diseases in [place], [facility] [address] [place], [place] [address] [address] [place], [place] [phone] [address] (Work) [phone] Social History Tobacco Use Types Packs/Day Years [...] do you attend protestant or Never 2018 buddhist services? Do you [...] layer. For the complete report, see the [employer] Documents. Narrative 08/19/2019 1:52 PM CDT For the complete report, see the [employer] Documents. Final Impressions 1. Echocardiogram performed per [...] 08/19/2019 For the complete report, see the [employer] Documents. Final Impressions 1. Echocardiogram performed per [...] documented as of this encounter Care Teams Prototype Carpenter Relationship Specialty Start Date End Date Elsewhere, Pcp PCP - General Internal Medicine 07/27/18 documented as of this encounter
--- OUTSIDE RECORDS SUMMARY | 2022-02-26 09:09 | XMS_ITS | Encounter Summary ---
:1955 Author Organization [facility] Address [address] [place] [address] Care Team Providers Name Role Phone Elsewhere, Pcp Primary Care Provider Unavailable Encounter Details Date Type Department Care Team Description 12/30/2019 Clinical Communication Department of Urology Zac Gonzalez [place] [address] [place] [address] Social History Tobacco Use Types Packs/Day Years [...] do you attend mormon or Never 2018 evangelical services? Do you [...] Microscopic: Urine, Midstream (01/04/2020 12:26 PM CDT) [facility] Method Time Signature Source Midstream 01/04/2020 FREDY 12:26 PM CDT Appearance Normal Normal 01/04/2020 FREDY 1:38 PM CDT Osmolality, U 483 150 - 1150 01/04/2020 FREDY mOsm/kg 1:24 PM CDT pH, U 5.4 4.5 - 8.0 01/04/2020 FREDY 1:24 PM CDT Comment: ----ADDITIONAL INFORMATION---- This test was developed and its performa nce characteristics determined by [facility] in a manner co nsistent with [...] City/State/ZIP Code Phon e Number [facility] - [address] [place], [place] [address] [facility] [place] [address] [facility] [address] DX Chest AP or [...] e Number [facility] - [address] [place], [place] [address] [place], [place] [id number] [address] (ABNORMAL) ALT (Alanine Aminotransferase) (01/04/2020 10:58 AM CDT) [facility] Method Time Signature Alanine 56 (H) 7 - 45 01/04/2020 DTL Aminotransferase U/L 12:58 PM CDT (ALT), S Specimen Anatomical Collection Method Collection Time Receive d Time (Source) Location / / Volume Laterality Blood (Blood, 01/04/2020 10:58 01/04/2020 Venous) AM CDT 11:38 AM CDT Zac Gonzalez M.D. LAB BLOOD ADD-ON Performing Organization Address City/State/ZIP Code Phon e Number [facility] - [id number] [place] [address] AST (Aspartate Aminotransferase) (01/04/2020 10:58 AM CDT) [facility] Method Time Signature Aspartate 33 8 - 43 01/04/2020 DTL Aminotransferase U/L 12:58 PM CDT (AST), S Specimen Anatomical Collection Method Collection Time Receive d Time (Source) Location / / Volume Laterality Blood (Blood, 01/04/2020 10:58 01/04/2020 Venous) AM CDT 11:38 AM CDT Zac Gonzalez M.D. LAB BLOOD ADD-ON Performing Organization Address City/State/ZIP Code Phon e Number [facility] - [address] [place], [place] [address] [place] [address] Calcium, Total (01/04/2020 10:58 AM CDT) P [...] City/State/ZIP Code Phon e Number [facility] - [address] [place], [place] [address] [facility] [place] [address] [facility] [address] [facility] (ABNORMAL) CBC with Differential, Blood (01/04/2020 10:58 AM CDT) [facility] Method Time Signature Hemoglobin 13.5 11.6 [...] City/State/ZIP Code Phon e Number [facility] - [address] [place], [place] [address] [facility] [address] Creatinine with Estimated GFR (01/04/2020 10:58 AM CDT) athologist Signature Creatinine 0.87 0.59 - 01/04/2020 DTL 1.04 mg/dL 12:58 PM CDT eGFR-Non 72 >=60 01/04/2020 DTL Black/ mL/min/BSA 12:58 PM CDT Mongolian Comment: ----ADDITIONAL INFORMATION---- Estimated GFR calculated using [...] Performing Organization Address City/[facility]/ZIP Code Phon e Number [facility] - [address] [place], [place] [address] [place], [place] [id number] [place] [address] BUN (Blood Urea Nitrogen) [...] City/State/ZIP Code Phon e Number [facility] - [address] [place], [place] [address] [facility] [place], [place] [id number] [place] [address] [address] [facility] Electrolyte (Chem 4) Panel (01/04/2020 10:58 AM [...] City/State/ZIP Code Phon e Number [facility] - [address] [place], [place] [address] [facility] [place] [address] [facility] [address] [facility] documented in this encounter Visit Diagnoses Diagnosis Carcinoma Renal Cell Left (HCC) - Primar y Carcinoma Renal Cell Left (HCC) documented in this encounter Additional Health Concerns Assessment Noted Time PHQ-9 Depression Total Score: 11 05/04/2013 4:05 PM CS T documented as of this encounter Care Teams Taping Foreman Relationship Specialty Start Date End Date Elsewhere, Pcp PCP - General Internal Medicine 07/27/18 documented as of this encounter
--- OUTSIDE RECORDS SUMMARY | 2022-02-26 09:09 | XMS_ITS | Encounter Summary ---
:1955 Author Organization [facility] Address [address] [place] [address] Care Team Providers Name Role Phone Elsewhere, Pcp Primary Care Provider Unavailable Reason for Referral Outpatient (Routine) - Closed Specialty Diagnoses / Procedures Referred By Referred To Contact Contact Cardiovascular Diseases / Diagnoses Flutter Atrial (HCC) Atrial Fibrillation Paroxysmal (HCC) Tucker Rutherford [facility] Cardiovascular Disease P.A.-C. [address] [place] [address] Referral ID Status Reason Start Date Expiration Date Visits Requ ested Visits Authorized [id number] Closed 04/21/2019 04/20/2020 1 1 BOX COLLECTOR MRI/CAT/PET Scan (Routine) - Closed Specialty Diagnoses / Procedures Referred By Contact Refer red To Contact Radiology Diagnoses Flutter Atrial (HCC) Atrial Fibrillation Paroxysmal (HCC) Tucker Rutherford P.A.-Kadeem [facility] Procedures CT Cardiac Angiogram Pulmonary Veins with IV [address] [place] [address] Referral ID Status Reason Start Date Expiration Date Visits Requ ested Visits Authorized [id number] Closed 04/21/2019 04/20/2020 1 1 BOX COLLECTOR Outpatient (Routine) - Closed Specialty Diagnoses / Procedures Referred By Contact Refer red To Contact Diagnoses Flutter Atrial (HCC) Atrial Fibrillation Paroxysmal (HCC) Tucker Rutherford P.A.-C. [facility] Procedures ECG 12 Lead [address] [place], [place] [address] Referral ID Status Reason Start Date Expiration Date Visits Requ ested Visits Authorized [id number] Closed 04/21/2019 04/20/2020 1 1 BOX COLLECTOR Outpatient (Routine) - Closed Specialty Diagnoses / Procedures Referred By Contact Refer red To Contact Diagnoses Flutter Atrial (HCC) Atrial Fibrillation Paroxysmal (HCC) Tucker Rutherford P.A.-C. [facility] Procedures ECG Heart rhythm monitor (Holter) [address] [place], [place] [address] Referral ID Status Reason Start Date Expiration Date Visits Requ ested Visits Authorized [id number] Closed 04/21/2019 04/20/2020 1 1 BOX COLLECTOR Outpatient (Routine) - Closed Specialty Diagnoses / Procedures Referred By Contact Refer red To Contact Diagnoses Flutter Atrial (HCC) Atrial Fibrillation Paroxysmal (HCC) Tucker Rutherford P.A.-C. [facility] Procedures Echo Transthoracic (TTE) [address] [place], [place] [address] Referral ID Status Reason Start Date Expiration Date Visits Requ ested Visits Authorized [id number] Closed 04/21/2019 04/20/2020 1 1 BOX COLLECTOR Encounter Details Date Type Department Care Team Description 04/19/2019 - Hospital Encounter [facility] Shobha, Flutter A trial (HCC) (Primary Dx); 04/21/[address] [facility], Fibrillation Atrial (HCC); [facility] Atrial Fibrillation Paroxysmal (HCC) [facility], [address] [facility] Fourth Floor [place], [place] [address] [facility] [address] [place], [place] [phone] [address] (Work) [phone] Social History Tobacco Use Types Packs/Day Years [...] do you attend caodaism or Never 2018 sabianist services? Do you [...] Comments Blood Pressure 137/84 04/21/2019 8:30 AM COIN BOX COLLECTOR Pulse 78 04/21/2019 8:30 AM COIN BOX COLLECTOR Temperature 37.5 ??C (99.5 ??F) 04/21/2019 8:15 AM COIN BOX COLLECTOR Respiratory Rate 22 04/21/2019 11:15 AM COIN BOX COLLECTOR Oxygen Saturation 91% 04/21/2019 8:30 AM COIN BOX COLLECTOR Inhaled Oxygen Concentration - - Weight 98.3 kg (216 lb 11.4 oz) 04/21/2019 3:00 AM COIN BOX COLLECTOR Height 165.6 cm (5' 5.2) 04/19/2019 8:35 AM COIN BOX COLLECTOR Body Mass Index 35.85 04/19/2019 8:35 AM COIN BOX COLLECTOR documented in this encounter Discharge Summaries Tucker Rutherford P.A.-C. - 04/21/2019 10:04 AM CST Images from the original note were not included. DISCHARGE SUMMARY BRIEF OVERVIEW Discharge Provider: Marla Yeager M.B.BEdilmaSEdilma Primary Care Providers: Elsewhere, Pcp (General) [address] [facility] [address] Primary Care Provider Phone Number: None Primary [...] HOSPITAL COURSE Iris Metcalf was discharged from [facility] following an ablation performed by Dr. Yeager [...] will occur in approximately 3 months at [facility] in Heart Rhythm Services. Testing at that time will include a 24 hr Holter monitor, ECG, echocardiogram, and cardiac Ct. Patient was also instructed to follow up with Primary Care locally in the next 7-10 days for post hospital follow up. Discharge instructions were provided to the patient and caregiver(s). Juan J Rutherford P.A.-C. BOX COLLECTOR documented in this encounter Discharge Instructions Discharge InstructionsHiTucker fish P.A.-C. - 04/21/2019 11:05 AM COIN BOX COLLECTOR Hospital Problems as of 04/21/2019 1. * [...] 4:00 p.m., contact the Electrophysiology Service at [phone]. For questions occurring after business hours, on weekends, nights, or holidays call [phone] and ask for Electrophysiology Meat Press Operator. General Follow-Up: You should follow up locally with your primary care provider in approximately 2 weeks for post hospitalization follow-up. Take a copy of the dismissal summary from [facility] to your provider. [facility] Follow-Up: A follow-up appointment will be scheduled for you in 3 months in the Heart Rhythm Center or Cardiovascular Exam Room. You will be contacted by [facility] to set up the follow up. Tests will include the following: electrocardiogram, 24-hour Holter monitor, transthoracic echocardiogram, and CT scan of heart. Our appointment coordinators will be contacting you. If you have not been notified about your appointment, please contact the electrophysiology employee communications coordinator at . Anticoagulation: Anticoagulation with Coumadin [...] avoid/skip your follow-up appointments, they are important! BOX COLLECTOR AttachmentsThe following attachments cannot be sent through Care Everywhere. Acetaminophen (By mouth) (Sol[place] Islander)Flecainide (By mouth) ([place] Islander)Omeprazole (By mouth) ([place] Islander)documented in this encounter Medications at Time of [...] and Lissette Breen Pharm.D., R.Ph. Contact Pager [phone] with any questions about this note. BOX COLLECTOR Tucker Rutherford P.A.-C. - 04/20/2019 11:26 AM [...] Clinical Cardiac Electrophysiology Fellow 04/20/2019 8:21 AM COIN BOX COLLECTOR BOX COLLECTOR Aria Houser APRN, C.N.P., M.S.N. - 04/19/2019 [...] the hospital for monitoring while on flecainide. BOX COLLECTOR Jayda Whitehead, Pharm.D., R.Ph. - 04/19/2019 4:01 [...] and Jayda Haddad Pharm.D., R.Ph. Contact Pager [phone] with any questions about this note. BOX COLLECTOR documented in this encounter Procedure Notes Porfirio [...] BLOOD LOSS Estimated Blood Loss: 1-75 ml BOX COLLECTOR documented in this encounter Consult Notes Flores Romeo R.N. - 04/21/2019 9:05 AM CSTAssociated Order(s): IP CONSULT TO CARE MANAGEMENT Discharge Planning Assessment SUBJECTIVE Referral Data Referral Source: Nurse Referral Name: Valerie Jaquez R.N. Referral Reason: Discharge Planning Discharge Planning: Other (Comment)([facility]) Who was present during the interview?: Patient Project Manager Retail Services Used: No Patient Information Primary Caregiver: Other (Comment)(staff at facility) Primary Nurse Name/Number: Bernie Diet/Texture: By mouth Legal Information Legal Decision Maker: Self Advance Directives: Power of Commercial Lines Assistant for health care, Power of Commercial Lines Assistant for finance Advance Directives Status: Not Activated Power of Commercial Lines Assistant for Health Care Agent Name: Ramin Metcalf Power of Commercial Lines Assistant for Health Agent Contact Info: [phone] Power of Commercial Lines Assistant for Finance Agent Name: Ramin Metcalf Power of Commercial Lines Assistant for Finance Agent Contact Info: [phone] Caregiver Information Caregiver Name: [facility] Caregiver Relationship: paid staff Caregiver Caregiver Address: [address] [place] [address] Services Requested Discharge Planning to Facility OBJECTIVE [...] Communication: Can write, Talks, Understands speaking, Understands Solomon Islander Environmental Supports Home Environment: [facility] Care Facility Name: [facility] Anticipated Modifications to the Patient's Home: None [...] Residence: Other (Comment) Type of Residence Other: Supervisor Treating And Pumping Care Facility Care Facility Name: [facility] Support Systems: Children Assistance Recommended after Discharge: 24 hour supervision Home Care Services: No Anticipated Discharge Destination: [facility] Does the patient need discharge transport arranged?: Yes Has discharge transport been arranged?: Yes What day is the transport expected?: 04/21/19 What time is the transport expected?: 1130 Discharge Provided By: Chasity Moran: [phone] ASSESSMENT / PLAN ??Assessment: Met with the patient to discuss her prior level of care and home going needs. I reviewed my role of Black Leather Buffer. Patient reviewed her current hospitalization and appears to have understanding, insightand competence of her needs. Patient reviewed her home environment and support system; reviewing that her primary career development specialist - facility staff will be able to provide care to patient post discharge. Patient reports that she feels safe and supported to return [facility]. ?? Patient stated that she has two sons that are her support system. Patient hopes to transition to an assisted living center. Plan: Patient appears to have understanding, insight and competence into patient needs and is appropriately planning for discharge at this time. I recommended the following: none at this time 1. Patient plans to return to [facility] once medically stable for DC 2. Resources given:None 3. CM will continue to follow for any needs that arise. 4. Transportation home will be provided by Moran [phone]. 5. Reconnections needed [facility]. Patient to return to: Destination - Selection Complete Service Provider Request Status Selected Services Address Phone Number Fax Number [facility] Selected Transitional Care Unit [address] [facility] [address] [phone] Contact: Intake Patient has a MA bedhold. Facility prefers patient return by 1300. Transportation to be provided by Moran at 1130. Please contact Case Management if [...] arise. Signed by: Flores Romeo R.N. 04/21/2019 BOX COLLECTOR documented in this encounter Nursing Notes Talya Duffy R.N. - 04/21/2019 10:55 AM CST Pt d/c to [facility]. Facility AVS, discharge summary and MAR report printed, discussed andhanded to pt to relay to SNF. Nurse to nurse report done. Education complete. Teach-back acquired. All questions answered. Transport arranged. Escort requested. BOX COLLECTOR Mary Cortés, R.R.T., L.R.T. - 04/20/2019 12:42 AM CST Patient is a 64 y.o. female admitted on 04/19/2019 Alert Information: Plan of Care: Patient refused PAP therapy tonight. RT will continue to offer assistance. Principal Problem Atrial Fibrillation Paroxysmal (HCC) Oxygen Therapy $Delivery Method: Room air Arterial Line 04/19/19 Right Radial (Active) Placement Date/Time: 04/19/19 (c) 9668 Procedural Pause Completed: Yes Hand Hygiene Performed Prior to Insertion: Yes Site Prep: Chlorhexidine (Preferred) Sterile Barriers Used : Cap;Gloves;Gown;Large drape;Mask (Clinician);Mask (All others in ro... BOX COLLECTOR Naren Michaels R.N. - 04/19/2019 9:35 PM CST Shift Goals: Clinical Goals for the Shift: pt remain safe Identify possible barriers to meeting goals/advancing plan of care: pt up with assist and walker End of Shift Summary: met BOX COLLECTOR Naren Peng R.R.T., L.R.T. - 04/19/2019 5:29 PM CST Assist with CPAP BOX COLLECTOR Robbie Emerson R.N. - 04/19/2019 8:38 AM CST Patient was admitted for ablation/ electrophysiology procedure. Reviewed HPI, preliminary testing and confirmed medications taken this morning. The last dose of Warfarin taken was 04/19/2019. Pain management strategies post-procedure were discussed. All questions were answered. Patient would like family member Ramin updated with procedural updates. The phone number to reach this family member is [phone]. BOX COLLECTOR documented in this encounter Plan of Treatment Scheduled Referrals Name Type Priority Associated Diagnoses Order S [facility] Cardiovascular Disease Outpatient Routine Flutter A trial (HCC) Expected: - Heart rhythm consult Referral Atrial Fibrillatio n 07/21/2019 (clinic) Paroxysmal (HCC) (Approximat e), Expires: 04/21/2022 documented as of this encounter Procedures Procedure Name Priority Date/Time Associated Comments Diagnosis ECG Routine 04/21/2019 Results for 10:47 AM COIN BOX COLLECTOR this procedure are in the results section. PROTHROMBIN TIME (PT), Routine 04/21/2019 6:15 Re sults for P AM COIN BOX COLLECTOR this procedure are in the results section. CBC WITH DIFFERENTIAL, Routine 04/21/2019 6:15 Re sults for B AM COIN BOX COLLECTOR this procedure are in the results section. BUN (BLOOD UREA Routine 04/21/2019 6:15 Results f or NITROGEN), S/P AM COIN BOX COLLECTOR this procedur e are in the results section. POTASSIUM, S/P Routine 04/21/2019 6:15 Results fo r AM COIN BOX COLLECTOR this procedure are in the results section. MAGNESIUM, S Routine 04/21/2019 6:15 Results for AM COIN BOX COLLECTOR this procedure are in the results section. CREATININE WITH EGFR, Routine 04/21/2019 6:15 Res ults for S/P AM COIN BOX COLLECTOR this procedure are in the results section. ECG Routine 04/20/2019 Results for 10:44 PM COIN BOX COLLECTOR this procedure are in the results section. DX CHEST AP OR PA AND RAD - Timed 04/20/2019 8:18 Res ults for LATERAL 2 VIEWS (for specific AM COIN BOX COLLECTOR this proced ure dates/times) are in the results section. ECG Routine 04/20/2019 6:42 Results for AM COIN BOX COLLECTOR this procedure are in the results section. PROTHROMBIN TIME (PT), Routine 04/20/2019 6:34 Re sults for P AM COIN BOX COLLECTOR this procedure are in the results section. CBC WITH DIFFERENTIAL, Routine 04/20/2019 6:34 Re sults for B AM COIN BOX COLLECTOR this procedure are in the results section. BUN (BLOOD UREA Routine 04/20/2019 6:34 Results f or NITROGEN), S/P AM COIN BOX COLLECTOR this procedur e are in the results section. POTASSIUM, S/P Routine 04/20/2019 6:34 Results fo r AM COIN BOX COLLECTOR this procedure are in the results section. MAGNESIUM, S Routine 04/20/2019 6:34 Results for AM COIN BOX COLLECTOR this procedure are in the results section. CREATININE WITH EGFR, Routine 04/20/2019 6:34 Res ults for S/P AM COIN BOX COLLECTOR this procedure are in the results section. GLUCOSE POCT, B Routine 04/19/2019 4:12 Results f or PM COIN BOX COLLECTOR this procedure are in the results section. POTASSIUM, S/P STAT 04/19/2019 3:42 Results fo r PM COIN BOX COLLECTOR this procedure are in the results section. MAGNESIUM, S STAT 04/19/2019 3:42 Results for PM COIN BOX COLLECTOR this procedure are in the results section. PROTHROMBIN TIME (PT), STAT 04/19/2019 2:53 Re sults for P PM COIN BOX COLLECTOR this procedure are in the results section. ABLATION - ATRIAL Routine 04/19/2019 2:26 Atrial Results for FLUTTER - RIGHT PM COIN BOX COLLECTOR Fibrillation (HCC) this p rocedure are in the results section. ABLATION - WACA Routine 04/19/2019 2:26 Atrial Results f or PM COIN BOX COLLECTOR Fibrillation (HCC) this proc edure are in the results section. HEART RHYTHM PROCEDURE Routine 04/19/2019 2:26 Atrial Re sults for PM COIN BOX COLLECTOR Fibrillation (HCC) this proc edure are in the results section. HEART RHYTHM PROCEDURE Routine 04/19/2019 2:26 Atrial Re sults for PM COIN BOX COLLECTOR Fibrillation (HCC) this proc edure are in the results section. HEART RHYTHM PROCEDURE Routine 04/19/2019 2:26 Atrial Re sults for PM COIN BOX COLLECTOR Fibrillation (HCC) this proc edure are in the results section. ABLATION PVI Routine 04/19/2019 2:26 Atrial Results for PM COIN BOX COLLECTOR Fibrillation (HCC) this proc edure are in the results section. ABG AND LYTES EG6+, Routine 04/19/2019 2:10 Resul ts for POCT, B PM COIN BOX COLLECTOR this procedure are in the results section. ACT, POCT, B Routine 04/19/2019 2:03 Results for PM COIN BOX COLLECTOR this procedure are in the results section. GLUCOSE POCT, B Routine 04/19/2019 2:02 Results f or PM COIN BOX COLLECTOR this procedure are in the results section. ACT, POCT, B Routine 04/19/2019 1:19 Results for PM COIN BOX COLLECTOR this procedure are in the results section. ABG AND LYTES EG6+, Routine 04/19/2019 Results for POCT, B 12:58 PM COIN BOX COLLECTOR this procedure are in the results section. ACT, POCT, B Routine 04/19/2019 Results for 12:48 PM COIN BOX COLLECTOR this procedure are in the results section. GLUCOSE POCT, B Routine 04/19/2019 Results for 12:47 PM COIN BOX COLLECTOR this procedure are in the results section. ACT, POCT, B Routine 04/19/2019 Results for 12:19 PM COIN BOX COLLECTOR this procedure are in the results section. PROTHROMBIN TIME (PT), STAT 04/19/2019 Resul ts for P 12:16 PM COIN BOX COLLECTOR this procedure are in the results section. ACT, POCT, B Routine 04/19/2019 Results for 11:55 AM COIN BOX COLLECTOR this procedure are in the results section. ACT, POCT, B Routine 04/19/2019 Results for 11:27 AM COIN BOX COLLECTOR this procedure are in the results section. ACT, POCT, B Routine 04/19/2019 Results for 11:05 AM COIN BOX COLLECTOR this procedure are in the results section. PROTHROMBIN TIME (PT), STAT 04/19/2019 Resul ts for P 10:46 AM COIN BOX COLLECTOR this procedure are in the results section. CBC WITH DIFFERENTIAL, STAT 04/19/2019 Resul ts for B 10:46 AM COIN BOX COLLECTOR this procedure are in the results section. BASIC METABOLIC PANEL, STAT 04/19/2019 Resul ts for S/P 10:46 AM COIN BOX COLLECTOR this procedure are in the results section. TYPE AND SCREEN STAT 04/19/2019 Results for 10:45 AM COIN BOX COLLECTOR this procedure are in the results section. GLUCOSE POCT, B Routine 04/19/2019 Results for 10:44 AM COIN BOX COLLECTOR this procedure are in the results section. ACT, POCT, B Routine 04/19/2019 Results for 10:41 AM COIN BOX COLLECTOR this procedure are in the results section. ECHO - INTRAPROCEDURAL Routine 04/19/2019 8:52 Re sults for IMAGES ONLY AM COIN BOX COLLECTOR this procedure are in the results section. INR, POCT, B Routine 04/19/2019 8:37 Results for AM COIN BOX COLLECTOR this procedure are in the results section. GLUCOSE POCT, B Routine 04/19/2019 8:37 Results f or AM COIN BOX COLLECTOR this procedure are in the results section. [...] layer. For the complete report, see the [employer] Documents. Narrative 08/19/2019 1:52 PM CDT For the complete report, see the [employer] Documents. Final Impressions 1. Echocardiogram performed per [...] ECHO PROCEDURES HOLTER MONITOR - IN CLINIC SIGNAL MAINTENANCE TECHNICIAN (08/18/2019 10:48 AM CDT) Lopoly Method Time Signature SVE Max Per HOLTER [...] 54 bpm HOLTER SENTINEL VE Max Per [id number] HOLTER Hour Time SENTINEL SVE Percent 0 percent HOLTER Beats SENTINEL VE Max Per 1 count HOLTER Hour SENTINEL Max Heart Rate [id number] HOLTER Time SENTINEL Specimen (Source) Anatomical Collection Method Collection Time Re ceived Time Location / / Volume Laterality 08/18/2019 10:49 AM CDT Narrative This result has an attachment that is no t available. Tucker Rutherford P.A.-C. CV CARDIAC SERVICES PROCEDUR ES Performing Organization Address City/State/ZIP Code Phon e Number HOLTER SENTINEL HOLTER SENTINEL NA ECG 12 Lead (08/18/2019 10:23 AM CDT) [facility] Method Time Signature Ventricular 66 BPM MUSE Rate ECG/Min MO Interval 202 ms MUSE QRSD Interval 118 ms MUSE QT Interval 480 ms MUSE QTC Interval 503 ms MUSE P [place] 73 degrees MUSE R [place] 94 degrees MUSE T Wave [place] 47 degrees MUSE CODED DIAGNOSIS MUSE Semi-Urgent [...] thoracic spine. Cholecystectomy clips se en on employment training specialist images. GUIDELINES FOR FOLLOW-UP of newly detect [...] thoracic spine. Cholecystectomy clips se en on employment training specialist images. GUIDELINES FOR FOLLOW-UP of newly detect [...] PROCEDURES ECG 12 Lead (04/21/2019 10:47 AM COIN BOX COLLECTOR) athologist Signature Ventricular Rate 73 BPM MUSE ECG/Min MO Interval 204 ms MUSE QRSD Interval 110 ms MUSE QT Interval 414 ms MUSE QTC Interval 456 ms MUSE P [place] 69 degrees MUSE R [place] 104 degrees MUSE T Wave [place] 27 degrees MUSE Specimen Anatomical Collection Method Collection Time Receive d Time (Source) Location / / Volume Laterality 04/21/2019 10:47 04/21/2019 AM COIN BOX COLLECTOR 10:55 AM COIN BOX COLLECTOR Impressions MUSE - 04/21/2019 10:55 AM COIN BOX COLLECTOR Normal sinus rhythm with 1st degree A-V [...] MUSE MUSE NA Magnesium (04/21/2019 6:15 AM COIN BOX COLLECTOR) athologist Signature Magnesium, S 2.0 1.7 - 2.3 04/21/2019 DTL mg/dL 7:39 AM COIN BOX COLLECTOR Specimen Anatomical Collection Method Collection Time Receive d Time (Source) Location / / Volume Laterality Blood (Blood, 04/21/2019 6:15 AM 04/21/19 20 6:39 Venous) COIN BOX COLLECTOR AM COIN BOX COLLECTOR Tucker Rutherford P.A.-C. LAB BLOOD ADD-ON Performing Organization Address [facility] Phon e Number [facility] - [address] [place] [address] [address] [facility] [place] [address] Laboratories-[facility] [address] [facility] (ABNORMAL) Prothrombin Time (PT) (04/21/2019 6:15 AM COIN BOX COLLECTOR) [facility] Method Time Signature Prothrombin 28.6 (H) 9.4 - 12.5 04/21/2019 DTL Time, P sec 6:54 AM COIN BOX COLLECTOR INR 2.6 0.9 - 1.1 04/21/2019 DTL 6:54 AM COIN BOX COLLECTOR Comment: ----ADDITIONAL INFORMATION---- Standard intensity warfarin therapeutic range: 2.0 to 3.0 ?? High intensity warfarin therapeutic rang e: 2.5 to 3.5 Specimen Anatomical Collection Method Collection Time Receive d Time (Source) Location / / Volume Laterality Blood (Blood, 04/21/2019 6:15 AM 04/21/19 20 6:39 Venous) COIN BOX COLLECTOR AM COIN BOX COLLECTOR Aria Houser APRN, C.N.P., M.S.N. LAB BLOOD ADD-ON Performing Organization Address City/[facility] Phon e Number [facility] - [address] [place] [address] 05 [facility] [place] [address] Laboratories-[address] (ABNORMAL) CBC with Differential, Blood (04/21/2019 6:15 AM COIN BOX COLLECTOR) [facility] Method Time Signature Hemoglobin 12.1 11.6 - 04/21/2019 DTL 15.0 g/dL 6:45 AM COIN BOX COLLECTOR Hematocrit 38.0 35.5 - 04/21/2019 DTL 44.9 % 6:45 AM COIN BOX COLLECTOR Erythrocytes 4.03 3.92 - 04/21/2019 DTL 5.13 6:45 AM COIN BOX COLLECTOR x10(12)/L MCV 94.3 78.2 - 04/21/2019 DTL 97.9 fL 6:45 AM COIN BOX COLLECTOR RBC Distrib Width 12.3 12.2 - 04/21/2019 DTL 16.1 % 6:45 AM COIN BOX COLLECTOR Platelet Count 296 157 - 371 04/21/2019 DTL x10(9)/L 6:45 AM COIN BOX COLLECTOR Leukocytes 11.7 (H) 3.4 - 9.6 04/21/2019 DTL x10(9)/L 6:45 AM COIN BOX COLLECTOR Neutrophils 8.57 (H) 1.56 - 04/21/2019 DTL 6.45 6:45 AM COIN BOX COLLECTOR x10(9)/L Lymphocytes 2.03 0.95 - 04/21/2019 DTL 3.07 6:45 AM COIN BOX COLLECTOR x10(9)/L Monocytes 0.91 (H) 0.26 - 04/21/2019 DTL 0.81 6:45 AM COIN BOX COLLECTOR x10(9)/L Eosinophils 0.14 0.03 - 04/21/2019 DTL 0.48 6:45 AM COIN BOX COLLECTOR x10(9)/L Basophils 0.08 0.01 - 04/21/2019 DTL 0.08 6:45 AM COIN BOX COLLECTOR x10(9)/L Specimen Anatomical Collection Method Collection Time Receive d Time (Source) Location / / Volume Laterality Blood (Blood, 04/21/2019 6:15 AM 04/21/19 20 6:40 Venous) COIN BOX COLLECTOR AM COIN BOX COLLECTOR Marla Pham LAB BLOOD ADD-ON Performing Organization Address City/State/ZIP Code Phon e Number [facility] [facility] [address] [place], [place] [address] [facility] [place] [address] [facility] [address] Creatinine with Estimated GFR (04/21/2019 6:15 AM COIN BOX COLLECTOR) P athologist Signature Creatinine 0.85 0.59 - 04/21/2019 DTL 1.04 mg/dL 7:39 AM COIN BOX COLLECTOR eGFR-Non 74 >=60 04/21/2019 DTL Black/ mL/min/BSA 7:39 AM COIN BOX COLLECTOR [place] Comment: ----ADDITIONAL INFORMATION---- Estimated GFR calculated using the 2009 CKD_EPI creatinine equation. eGFR-Black/ 85 >=60 mL/min/BSA 2019 7:39 AM COIN BOX COLLECTOR DTL Comment: ----ADDITIONAL INFORMATION---- Estimated GFR calculated using the 2009 CKD_EPI creatinine equation. Specimen Anatomical Collection Method Collection Time Receive d Time (Source) Location / / Volume Laterality Blood (Blood, 04/21/2019 6:15 AM 04/21/19 20 6:39 Venous) COIN BOX COLLECTOR AM COIN BOX COLLECTOR Marla RendonSEdilma LAB BLOOD ADD-ON Performing Organization Address City/State/ZIP Code Phon e Number [facility] - [address] SW BUN (Blood Urea Nitrogen) (04/21/2019 6:15 AM COIN BOX COLLECTOR) P athologist Signature BUN (Blood Urea 13 6 - 21 04/21/2019 DTL Nitrogen), S mg/dL 7:39 AM COIN BOX COLLECTOR Specimen Anatomical Collection Method Collection Time Receive d Time (Source) Location / / Volume Laterality Blood (Blood, 04/21/2019 6:15 AM 04/21/19 20 6:39 Venous) COIN BOX COLLECTOR AM COIN BOX COLLECTOR Marla RendonSEdilma LAB BLOOD ADD-ON Performing Organization Address City/State/ZIP Code Phon e Number [facility] - [address] Potassium (04/21/2019 6:15 AM COIN BOX COLLECTOR) P athologist Signature Potassium, S 5.0 3.6 - 5.2 04/21/2019 DTL mmol/L 7:39 AM COIN BOX COLLECTOR Specimen Anatomical Collection Method Collection Time Receive d Time (Source) Location / / Volume Laterality Blood (Blood, 04/21/2019 6:15 AM 04/21/19 20 6:39 Venous) COIN BOX COLLECTOR AM COIN BOX COLLECTOR Marla RendonSEdilma LAB BLOOD ADD-ON Performing Organization Address City/State/ZIP Code Phon e Number [facility] - [address] ECG 12 Lead (04/20/2019 10:44 PM COIN BOX COLLECTOR) P athologist Signature Ventricular Rate 82 BPM MUSE ECG/Min MO Interval 198 ms MUSE QRSD Interval 106 ms MUSE QT Interval 374 ms MUSE QTC Interval 436 ms MUSE P [place] 67 degrees MUSE R [place] 89 degrees MUSE T Wave [place] -4 degrees MUSE Specimen Anatomical Collection Method Collection Time Receive d Time (Source) Location / / Volume Laterality 04/20/2019 10:44 04/21/2019 5:08 PM COIN BOX COLLECTOR AM COIN BOX COLLECTOR Impressions MUSE - 04/21/2019 5:08 AM COIN BOX COLLECTOR Normal sinus rhythm ST and T wave [...] and Lateral 2 Views (04/20/2019 8:18 AM COIN BOX COLLECTOR) Anatomical Region Laterality Modality Chest, Thoracic RST LOS, Thoracic ARZ LOS, Thoracic N/A Digital Radiography FLA LOS Specimen (Source) Anatomical Collection Method Collection Time Re ceived Time Location / / Volume Laterality 04/20/2019 8:19 AM COIN BOX COLLECTOR Impressions 04/20/2019 8:37 AM COIN BOX COLLECTOR Since 06/29/2018, decreased lung volumes. No focal consolidation, or pneumothorax. Possible tiny left pleu ral effusion with associated atelectasis. Mild pulmonary vascular con gestion. New cardiomegaly. Aortic calcification. Surgical clips right uppe r quadrant. Narrative 04/20/2019 8:37 AM COIN BOX COLLECTOR EXAM: ??DX CHEST AP OR PA AND [...] DURES ECG 12 Lead (04/20/2019 6:42 AM COIN BOX COLLECTOR) [facility] DoctorC Method Time Signature Ventricular 75 BPM MUSE Rate ECG/Min MO Interval 186 ms MUSE QRSD Interval 102 ms MUSE QT Interval 388 ms MUSE QTC Interval 433 ms MUSE P [place] 72 degrees MUSE R [place] 97 degrees MUSE T Wave [place] -127 degrees MUSE CODED Atrial MUSE DIAGNOSIS fibrillation Specimen Anatomical Collection Method Collection Time Receive d Time (Source) Location / / Volume Laterality 04/20/2019 6:42 AM 0 8:54 COIN BOX COLLECTOR AM COIN BOX COLLECTOR Impressions MUSE - 04/20/2019 8:54 AM COIN BOX COLLECTOR Normal sinus rhythm Rightward axis ST and [...] (ABNORMAL) Prothrombin Time (PT) (04/20/2019 6:34 AM COIN BOX COLLECTOR) [facility] DoctorC Method Time Signature Prothrombin 23.1 (H) 9.4 - 12.5 04/20/2019 DTL Time, P sec 7:26 AM COIN BOX COLLECTOR INR 2.1 0.9 - 1.1 04/20/2019 DTL 7:26 AM COIN BOX COLLECTOR Comment: ----ADDITIONAL INFORMATION---- Standard intensity warfarin therapeutic range: 2.0 to 3.0 ?? High intensity warfarin therapeutic rang e: 2.5 to 3.5 Specimen Anatomical Collection Method Collection Time Receive d Time (Source) Location / / Volume Laterality Blood (Blood, 04/20/2019 6:34 AM 04/20/19 20 7:04 Venous) COIN BOX COLLECTOR AM COIN BOX COLLECTOR Aria Houser APRN, C.N.P., M.S.N. LAB BLOOD ADD-ON Performing Organization Address City/State/ZIP Code Phon e Number [facility] - [address] [place], [place] [address] [facility] [place] [address] [facility] [address] (ABNORMAL) CBC with Differential, Blood (04/20/2019 6:34 AM COIN BOX COLLECTOR) [facility] gist Method Time Signature Hemoglobin 12.7 11.6 - 04/20/2019 DTL 15.0 g/dL 7:17 AM COIN BOX COLLECTOR Hematocrit 39.4 35.5 - 04/20/2019 DTL 44.9 % 7:17 AM COIN BOX COLLECTOR Erythrocytes 4.14 3.92 - 04/20/2019 DTL 5.13 7:17 AM COIN BOX COLLECTOR x10(12)/L MCV 95.2 78.2 - 04/20/2019 DTL 97.9 fL 7:17 AM COIN BOX COLLECTOR RBC Distrib Width 12.4 12.2 - 04/20/2019 DTL 16.1 % 7:17 AM COIN BOX COLLECTOR Platelet Count 362 157 - 371 04/20/2019 DTL x10(9)/L 7:17 AM COIN BOX COLLECTOR Leukocytes 12.0 (H) 3.4 - 9.6 04/20/2019 DTL x10(9)/L 7:17 AM COIN BOX COLLECTOR Neutrophils 8.06 (H) 1.56 - 04/20/2019 DTL 6.45 7:17 AM COIN BOX COLLECTOR x10(9)/L Lymphocytes 2.74 0.95 - 04/20/2019 DTL 3.07 7:17 AM COIN BOX COLLECTOR x10(9)/L Monocytes 0.93 (H) 0.26 - 04/20/2019 DTL 0.81 7:17 AM COIN BOX COLLECTOR x10(9)/L Eosinophils 0.17 0.03 - 04/20/2019 DTL 0.48 7:17 AM COIN BOX COLLECTOR x10(9)/L Basophils 0.10 (H) 0.01 - 04/20/2019 DTL 0.08 7:17 AM COIN BOX COLLECTOR x10(9)/L Specimen Anatomical Collection Method Collection Time Receive d Time (Source) Location / / Volume Laterality Blood (Blood, 04/20/2019 6:34 AM 04/20/19 20 7:04 Venous) COIN BOX COLLECTOR AM COIN BOX COLLECTOR Marla Pham LAB BLOOD ADD-ON Performing Organization Address City/[facility] Phon e Number [facility] - [address] [place], [place] [address] [place] [address] Creatinine with Estimated GFR (04/20/2019 6:34 AM COIN BOX COLLECTOR) athologist Signature Creatinine 0.89 0.59 - 04/20/2019 DTL 1.04 mg/dL 8:15 AM COIN BOX COLLECTOR eGFR-Non 70 >=60 04/20/2019 DTL Black/ mL/min/BSA 8:15 AM COIN BOX COLLECTOR [place] Comment: ----ADDITIONAL INFORMATION---- Estimated GFR calculated using the 2009 CKD_EPI creatinine equation. eGFR-Black/ 80 >=60 mL/min/BSA 2019 8:15 AM COIN BOX COLLECTOR DTL Comment: ----ADDITIONAL INFORMATION---- Estimated GFR calculated using the 2009 CKD_EPI creatinine equation. Specimen Anatomical Collection Method Collection Time Receive d Time (Source) Location / / Volume Laterality Blood (Blood, 04/20/2019 6:34 AM 04/20/19 20 7:04 Venous) COIN BOX COLLECTOR AM COIN BOX COLLECTOR Marla RendonSEdilma LAB BLOOD ADD-ON Performing Organization Address City/State/[facility] Code Phon e Number [facility] - [address] [place], [place] [address] [facility] [place] [address] BUN (Blood Urea Nitrogen) (04/20/2019 6:34 AM COIN BOX COLLECTOR) athologist Signature BUN (Blood Urea 13 6 - 21 04/20/2019 DTL Nitrogen), S mg/dL 8:15 AM COIN BOX COLLECTOR Specimen Anatomical Collection Method Collection Time Receive d Time (Source) Location / / Volume Laterality Blood (Blood, 04/20/2019 6:34 AM 04/20/19 20 7:04 Venous) COIN BOX COLLECTOR AM COIN BOX COLLECTOR Marla RendonS. LAB BLOOD ADD-ON Performing Organization Address City/[facility]/ZIP Code Phon e Number [facility] - [address] Potassium (04/20/2019 6:34 AM COIN BOX COLLECTOR) P athologist Signature Potassium, S 4.7 3.6 - 5.2 04/20/2019 DTL mmol/L 8:15 AM COIN BOX COLLECTOR Specimen Anatomical Collection Method Collection Time Receive d Time (Source) Location / / Volume Laterality Blood (Blood, 04/20/2019 6:34 AM 04/20/19 20 7:04 Venous) COIN BOX COLLECTOR AM COIN BOX COLLECTOR Marla Lora.S. LAB BLOOD ADD-ON Performing Organization Address City/[facility]/ZIP Code Phon e Number [facility] - [address] Magnesium (04/20/2019 6:34 AM COIN BOX COLLECTOR) P athologist Signature Magnesium, S 2.1 1.7 - 2.3 04/20/2019 DTL mg/dL 8:15 AM COIN BOX COLLECTOR Specimen Anatomical Collection Method Collection Time Receive d Time (Source) Location / / Volume Laterality Blood (Blood, 04/20/2019 6:34 AM 04/20/19 20 7:04 Venous) COIN BOX COLLECTOR AM COIN BOX COLLECTOR Marla RendonS. LAB BLOOD ADD-ON Performing Organization Address City/State/ZIP Code Phon e Number [facility] - [address] (ABNORMAL) Glucose, POCT (04/19/2019 4:12 PM COIN BOX COLLECTOR) Analysis Performed At Patho logist Time Signature Glucose, POCT, 230 (H) 70 - 140 04/19/2019 PCLX B mg/dL 4:19 PM COIN BOX COLLECTOR Last Intake 3-4 hours 04/19/2019 PCLX 4:19 PM COIN BOX COLLECTOR Specimen Anatomical Collection Method Collection Time Receive d Time (Source) Location / / Volume Laterality Blood 04/19/2019 4:12 PM 0 4:19 COIN BOX COLLECTOR PM COIN BOX COLLECTOR Unknown Provider LAB POCT ORDERABLES-MANUAL Performing Organization Address City/State/ZIP Code Phon e Number POC [facility] [address] [place] [address] PCLX [facility] [place] [address] [place] POC [address] (ABNORMAL) Magnesium (04/19/2019 3:42 PM COIN BOX COLLECTOR) P athologist Signature Magnesium, S 1.5 (L) 1.7 - 2.3 04/19/2019 DTL mg/dL 5:03 PM COIN BOX COLLECTOR Specimen Anatomical Collection Method Collection Time Receive d Time (Source) Location / / Volume Laterality Blood (Blood, 04/19/2019 3:42 PM 04/19/19 20 4:28 Venous) COIN BOX COLLECTOR PM COIN BOX COLLECTOR Kadeem Soto APRNNMarcel., M.S.N. LAB BLOOD ADD-ON Performing Organization Address City/State/ZIP Code Phon e Number [facility] - [address] [place], [place] [address] [facility] [place] [address] [facility] [address] Potassium (04/19/2019 3:42 PM COIN BOX COLLECTOR) P athologist Signature Potassium, P 3.8 3.6 - 5.2 04/19/2019 STMA mmol/L 4:01 PM COIN BOX COLLECTOR Specimen Anatomical Collection Method Collection Time Receive d Time (Source) Location / / Volume Laterality Blood (Blood, 04/19/2019 3:42 PM 04/19/19 20 3:49 Venous) COIN BOX COLLECTOR PM COIN BOX COLLECTOR Kadeem Soto APRNN.P., M.S.N. LAB BLOOD ADD-ON Performing Organization Address City/State/ZIP Code Phon e Number [facility] - [address] [place], [place] [address] [facility] [place] [address] [facility] [address] (ABNORMAL) Prothrombin Time (PT) (04/19/2019 2:53 PM COIN BOX COLLECTOR) Patholo gist Method Time Signature Prothrombin 29.8 (H) 9.4 - 12.5 04/19/2019 [facility] Time, P sec 3:14 PM COIN BOX COLLECTOR INR 2.7 0.9 - 1.1 04/19/2019 [facility] 3:14 PM COIN BOX COLLECTOR Comment: ----ADDITIONAL INFORMATION---- Standard intensity warfarin therapeutic range: 2.0 to 3.0 ?? High intensity warfarin therapeutic rang e: 2.5 to 3.5 Specimen Anatomical Collection Method Collection Time Receive d Time (Source) Location / / Volume Laterality Blood (Blood, 04/19/2019 2:53 PM 04/19/19 20 3:02 Venous) COIN BOX COLLECTOR PM COIN BOX COLLECTOR Tucker Rutherford P.A.-C. LAB BLOOD ADD-ON Performing Organization Address City/State/ZIP Code Phon e Number [facility] - [address] [place] [address] [place] [address] [facility] [address] ABLATION PVI, CARTO, ULTRASOUND GUIDANCE FOR VASCULAR ACCESS, INTRACARDIAC ECHOCARDIOGRAM, ABLATION - WACA, ABLATION - ATRIAL FLUTTER - RIGHT (04/19/2019 2:26 PM COIN BOX COLLECTOR) Anatomical Region Laterality Modality X-Ray Angiography Specimen (Source) Anatomical Collection Method Collection Time Re ceived Time Location / / Volume Laterality 04/19/2019 10:13 AM COIN BOX COLLECTOR Narrative 04/20/2019 2:47 PM COIN BOX COLLECTOR For the complete report, see the Order-L [...] ABG and Elian POCT (04/19/2019 2:10 PM COIN BOX COLLECTOR) P athologist Signature Sample Site, Artline 04/19/2019 PCLX POCT 2:16 PM COIN BOX COLLECTOR Comment: ----ADDITIONAL INFORMATION---- Performed at the Point of Care pH, POCT 7.42 7.35 - 7.45 04/19/2019 2:16 PM COIN BOX COLLECTOR PCLX Comment: ----ADDITIONAL INFORMATION---- Performed at the Point of Care pCO2, POCT 44 32 - 45 mm Hg 04/19/2019 2:16 PM COIN BOX COLLECTOR PC LX Comment: ----ADDITIONAL INFORMATION---- Performed at the Point of Care pO2, POCT 455 (H) 83 - 108 mm Hg 04/19/2019 2:16 PM COIN BOX COLLECTOR PC LX Comment: ----ADDITIONAL INFORMATION---- Performed at the Point of Care Base, POCT 4 (H) -2 - 3 mmol/L 04/19/2019 2:16 PM COIN BOX COLLECTOR PC LX Comment: ----ADDITIONAL INFORMATION---- Performed at the Point of Care HCO3, POCT 29 (H) 22 - 26 mmol/L 04/19/2019 2:16 PM COIN BOX COLLECTOR P CLX Comment: ----ADDITIONAL INFORMATION---- Performed at the Point of Care Sodium, POCT, B 137 135 - 145 mmol/L 04/19/2019 2:16 P M COIN BOX COLLECTOR PCLX Comment: ----ADDITIONAL INFORMATION---- Performed at the Point of Care Potassium, POCT, B 3.0 (L) 3.6 - 5.2 mmol/L 04/19/2019 2:1 6 PM COIN BOX COLLECTOR PCLX Comment: ----ADDITIONAL INFORMATION---- Performed at the Point of Care Hematocrit, POCT, B 36.0 35.5 - 44.9 % 04/19/2019 2:16 PM COIN BOX COLLECTOR PCLX Comment: ----ADDITIONAL INFORMATION---- Performed at the Point of Care Specimen Anatomical Collection Method Collection Time Receive d Time (Source) Location / / Volume Laterality Blood 04/19/2019 2:10 PM 0 2:16 COIN BOX COLLECTOR PM COIN BOX COLLECTOR Unknown Provider LAB POCT ORDERABLES - DEVICE Performing Organization Address City/State/ZIP Code Phon e Number POC [facility] [address] [place] [address] [place] [address] Krista POC [address] (ABNORMAL) ACT (Activated Clotting Time), POCT (04/19/2019 2:03 PM COIN BOX COLLECTOR) athologist Signature Activated 167 (H) 84 - 139 04/19/2019 PCSM Clotting Time, sec 2:16 PM COIN BOX COLLECTOR POCT Specimen Anatomical Collection Method Collection Time Receive d Time (Source) Location / / Volume Laterality Blood 04/19/2019 2:03 PM 0 2:16 COIN BOX COLLECTOR PM COIN BOX COLLECTOR Unknown Provider LAB POCT ORDERABLES - DEVICE Performing Organization Address City/[facility]/ZIP [facility] Phon e Number POC [facility] [address] [place], [place] [address] [place] [address] [place] POC [address] (ABNORMAL) Glucose, POCT (04/19/2019 2:02 PM COIN BOX COLLECTOR) athologist Signature Glucose, POCT, 193 (H) 70 - 140 04/19/2019 PCLX B mg/dL 2:04 PM COIN BOX COLLECTOR Specimen Anatomical Collection Method Collection Time Receive d Time (Source) Location / / Volume Laterality Blood 04/19/2019 2:02 PM 0 2:04 COIN BOX COLLECTOR PM COIN BOX COLLECTOR Unknown Provider LAB POCT ORDERABLES-MANUAL Performing Organization Address City/[facility] Phon e Number POC [facility] [address] [place] [address] [place] [address] [place] POC [address] (ABNORMAL) ACT (Activated Clotting Time), POCT (04/19/2019 1:19 PM COIN BOX COLLECTOR) athologist Signature Activated 300 (H) 84 - 139 04/19/2019 PCSM Clotting Time, sec 1:30 PM COIN BOX COLLECTOR POCT Specimen Anatomical Collection Method Collection Time Receive d Time (Source) Location / / Volume Laterality Blood 04/19/2019 1:19 PM 0 1:30 COIN BOX COLLECTOR PM COIN BOX COLLECTOR Unknown Provider LAB POCT ORDERABLES - DEVICE Performing Organization Address City/[facility] Phon e Number POC [facility] [address] [place], [place] [address] [place] [address] [place] POC [address] (ABNORMAL) ABG and Lytes, POCT (04/19/2019 12:58 PM COIN BOX COLLECTOR) P athologist Signature Sample Site, Artline 04/19/2019 PCLX POCT 1:04 PM COIN BOX COLLECTOR Comment: ----ADDITIONAL INFORMATION---- Performed at the Point of Care pH, POCT 7.41 7.35 - 7.45 04/19/2019 1:04 PM COIN BOX COLLECTOR PCLX Comment: ----ADDITIONAL INFORMATION---- Performed at the Point of Care pCO2, POCT 43 32 - 45 mm Hg 04/19/2019 1:04 PM COIN BOX COLLECTOR PC LX Comment: ----ADDITIONAL INFORMATION---- Performed at the Point of Care pO2, POCT 160 (H) 83 - 108 mm Hg 04/19/2019 1:04 PM COIN BOX COLLECTOR PC LX Comment: ----ADDITIONAL INFORMATION---- Performed at the Point of Care Base, POCT 3 -2 - 3 mmol/L 04/19/2019 1:04 PM COIN BOX COLLECTOR PC LX Comment: ----ADDITIONAL INFORMATION---- Performed at the Point of Care HCO3, POCT 27 (H) 22 - 26 mmol/L 04/19/2019 1:04 PM COIN BOX COLLECTOR P CLX Comment: ----ADDITIONAL INFORMATION---- Performed at the Point of Care Sodium, POCT, B 137 135 - 145 mmol/L 04/19/2019 1:04 P M COIN BOX COLLECTOR PCLX Comment: ----ADDITIONAL INFORMATION---- Performed at the Point of Care Potassium, POCT, B 3.3 (L) 3.6 - 5.2 mmol/L 04/19/2019 1:0 4 PM COIN BOX COLLECTOR PCLX Comment: ----ADDITIONAL INFORMATION---- Performed at the Point of Care Hematocrit, POCT, B 39.0 35.5 - 44.9 % 04/19/2019 1:04 PM COIN BOX COLLECTOR PCLX Comment: ----ADDITIONAL INFORMATION---- Performed at the Point of Care Specimen Anatomical Collection Method Collection Time Receive d Time (Source) Location / / Volume Laterality Blood 04/19/2019 12:58 04/19/2019 1:04 PM COIN BOX COLLECTOR PM COIN BOX COLLECTOR Unknown Provider LAB POCT ORDERABLES - DEVICE Performing Organization Address City/State/ZIP Code Phon e Number POC [facility] [address] [place] [address] [place] [address] [place] POC [address] (ABNORMAL) ACT (Activated Clotting Time), POCT (04/19/2019 12:48 PM COIN BOX COLLECTOR) athologist Signature Activated 369 (H) 84 - 139 04/19/2019 PCSM Clotting Time, sec 1:04 PM COIN BOX COLLECTOR POCT Specimen Anatomical Collection Method Collection Time Receive d Time (Source) Location / / Volume Laterality Blood 04/19/2019 12:48 04/19/2019 1:04 PM COIN BOX COLLECTOR PM COIN BOX COLLECTOR Unknown Provider LAB POCT ORDERABLES - DEVICE Performing Organization Address City/[facility] Phon e Number POC [facility] [address] [place], [place] [address] [place] [address] [place] POC [address] [place] [address] (ABNORMAL) Glucose, POCT (04/19/2019 12:47 PM COIN BOX COLLECTOR) athologist Signature Glucose, POCT, 199 (H) 70 - 140 04/19/2019 PCLX B mg/dL 12:49 PM COIN BOX COLLECTOR Site ARTLINE 04/19/2019 PCLX 12:49 PM COIN BOX COLLECTOR Specimen Anatomical Collection Method Collection Time Receive d Time (Source) Location / / Volume Laterality Blood 04/19/2019 12:47 04/19/2019 PM COIN BOX COLLECTOR 12:49 PM COIN BOX COLLECTOR Unknown Provider LAB POCT ORDERABLES-MANUAL Performing Organization Address City/[facility]/ZIP [facility] Phon e Number POC [facility] [address] [place] [address] [place] [address] [place] POC 200 [facility] (ABNORMAL) ACT (Activated Clotting Time), POCT (04/19/2019 12:19 PM COIN BOX COLLECTOR) athologist Signature Activated 341 (H) 84 - 139 04/19/2019 PCSM Clotting Time, sec 12:30 PM COIN BOX COLLECTOR POCT Specimen Anatomical Collection Method Collection Time Receive d Time (Source) Location / / Volume Laterality Blood 04/19/2019 12:19 04/19/2019 PM COIN BOX COLLECTOR 12:30 PM COIN BOX COLLECTOR Unknown Provider LAB POCT ORDERABLES - DEVICE Performing Organization Address City/[facility] Phon e Number POC [facility] [address] [place], [place] [address] LABS [place] [id number] [place] [address] (ABNORMAL) Prothrombin Time (PT) (04/19/2019 12:16 PM COIN BOX COLLECTOR) [facility] gist Method Time Signature Prothrombin 95.8 (H) 9.4 - 12.5 04/19/2019 [facility] Time, P sec 12:49 PM COIN BOX COLLECTOR INR 8.3 (CH) 0.9 - 1.1 04/19/2019 [facility] 12:49 PM COIN BOX COLLECTOR Comment: ----ADDITIONAL INFORMATION---- Standard intensity warfarin therapeutic range: 2.0 to 3.0 ?? High intensity warfarin therapeutic rang e: 2.5 to 3.5 Specimen Anatomical Collection Method Collection Time Receive d Time (Source) Location / / Volume Laterality Blood (Blood, 04/19/2019 12:16 04/19/2019 Venous) PM COIN BOX COLLECTOR 12:23 PM COIN BOX COLLECTOR Ana Soto APRN.N.Howard., M.S.N. LAB BLOOD ADD-ON Performing Organization Address City/State/ZIP Code Phon e Number [facility] - [address] [place], [place] [address] (ABNORMAL) ACT (Activated Clotting Time), POCT (04/19/2019 11:55 AM COIN BOX COLLECTOR) athologist Signature Activated 296 (H) 84 - 139 04/19/2019 PCSM Clotting Time, sec 12:06 PM COIN BOX COLLECTOR POCT Specimen Anatomical Collection Method Collection Time Receive d Time (Source) Location / / Volume Laterality Blood 04/19/2019 11:55 04/19/2019 AM COIN BOX COLLECTOR 12:06 PM COIN BOX COLLECTOR Unknown Provider LAB POCT ORDERABLES - DEVICE Performing Organization Address City/[facility]/ZIP [facility] Phon e Number POC [facility] [address] [place], [place] [address] LABS [place], [place] [id number] [place] [address] POC [address] [facility] (ABNORMAL) ACT (Activated Clotting Time), POCT (04/19/2019 11:27 AM COIN BOX COLLECTOR) athologist Signature Activated 353 (H) 84 - 139 04/19/2019 PCSM Clotting Time, sec 11:38 AM COIN BOX COLLECTOR POCT Specimen Anatomical Collection Method Collection Time Receive d Time (Source) Location / / Volume Laterality Blood 04/19/2019 11:27 04/19/2019 AM COIN BOX COLLECTOR 11:39 AM COIN BOX COLLECTOR Unknown Provider LAB POCT ORDERABLES - DEVICE Performing Organization Address City/[facility] Code Phon e Number POC [facility] INPATIENT [address] [place], [place] [address] LABS [place], [place] [id number] [place] [address] (ABNORMAL) ACT (Activated Clotting Time), POCT (04/19/2019 11:05 AM COIN BOX COLLECTOR) athologist Signature Activated 296 (H) 84 - 139 04/19/2019 PCSM Clotting Time, sec 11:17 AM COIN BOX COLLECTOR POCT Specimen Anatomical Collection Method Collection Time Receive d Time (Source) Location / / Volume Laterality Blood 04/19/2019 11:05 04/19/2019 AM COIN BOX COLLECTOR 11:17 AM COIN BOX COLLECTOR Unknown Provider LAB POCT ORDERABLES - DEVICE Performing Organization Address City/[facility] Phon e Number POC [facility] INPATIENT [address] [place], [place] [address] LABS [place], [place] [id number] [place] [address] (ABNORMAL) Basic Metabolic Panel (04/19/2019 10:46 AM COIN BOX COLLECTOR) athologist Signature Potassium, P 3.6 3.6 - 5.2 04/19/2019 [facility] mmol/L 11:18 AM COIN BOX COLLECTOR Sodium, P 139 135 - 145 04/19/2019 [facility] mmol/L 11:18 AM COIN BOX COLLECTOR Chloride, P 100 98 - 107 04/19/2019 [facility] mmol/L 11:18 AM COIN BOX COLLECTOR Bicarbonate, P 25 22 - 29 04/19/2019 [facility] mmol/L 11:18 AM COIN BOX COLLECTOR Anion Gap, P 14 7 - 15 04/19/2019 [facility] 11:18 AM COIN BOX COLLECTOR BUN (Blood Urea 12 6 - 21 04/19/2019 [facility] Nitrogen), P mg/dL 11:18 AM COIN BOX COLLECTOR Creatinine 0.76 0.59 - 04/19/2019 [facility] 1.04 mg/dL 11:18 AM COIN BOX COLLECTOR eGFR-Black/Afric >90 >=60 04/19/2019 [facility] an [place] mL/min/BSA 11:18 AM COIN BOX COLLECTOR Comment: ----ADDITIONAL INFORMATION---- Estimated GFR calculated using the 2009 CKD_EPI creatinine equation. eGFR Non-Black/ 84 >=60 mL/min/BSA 04/19/2019 11:18 AM COIN BOX COLLECTOR [facility] Comment: ----ADDITIONAL INFORMATION---- Estimated GFR calculated using the 2009 CKD_EPI creatinine equation. Calcium, Total, P 8.8 8.8 - 10.2 mg/dL 04/19/2019 11:1 8 AM COIN BOX COLLECTOR [facility] Glucose, P 210 (H) 70 - 140 mg/dL 04/19/2019 11:18 AM COIN BOX COLLECTOR STMA Specimen Anatomical Collection Method Collection Time Receive d Time (Source) Location / / Volume Laterality Blood (Blood, 04/19/2019 10:46 04/19/2019 Venous) AM COIN BOX COLLECTOR 11:01 AM COIN BOX COLLECTOR Renetta Greer APRN, C.N.P., D.N.P. LAB BLOOD ADD-ON Performing Organization Address City/State/ZIP Code Phon e Number [facility] - [address] [place], [place] [address] [place] [address] Laboratories-[facility] [address] (ABNORMAL) CBC with Differential, Blood (04/19/2019 10:46 AM COIN BOX COLLECTOR) [facility] Method Time Signature Hemoglobin 13.6 11.6 - 04/19/2019 [facility] 15.0 g/dL 11:10 AM COIN BOX COLLECTOR Hematocrit 40.1 35.5 - 04/19/2019 [facility] 44.9 % 11:10 AM COIN BOX COLLECTOR Erythrocytes 4.42 3.92 - 04/19/2019 [facility] 5.13 11:10 AM COIN BOX COLLECTOR x10(12)/L MCV 90.7 78.2 - 04/19/2019 [facility] 97.9 fL 11:10 AM COIN BOX COLLECTOR RBC Distrib Width 11.9 (L) 12.2 - 04/19/2019 [facility] 16.1 % 11:10 AM COIN BOX COLLECTOR Platelet Count 359 157 - 371 04/19/2019 [facility] x10(9)/L 11:10 AM COIN BOX COLLECTOR Leukocytes 9.0 3.4 - 9.6 04/19/2019 [facility] x10(9)/L 11:10 AM COIN BOX COLLECTOR Neutrophils 5.07 1.56 - 04/19/2019 [facility] 6.45 11:10 AM COIN BOX COLLECTOR x10(9)/L Lymphocytes 2.74 0.95 - 04/19/2019 [facility] 3.07 11:10 AM COIN BOX COLLECTOR x10(9)/L Monocytes 0.65 0.26 - 04/19/2019 [facility] 0.81 11:10 AM COIN BOX COLLECTOR x10(9)/L Eosinophils 0.40 0.03 - 04/19/2019 [facility] 0.48 11:10 AM COIN BOX COLLECTOR x10(9)/L Basophils 0.14 (H) 0.01 - 04/19/2019 [facility] 0.08 11:10 AM COIN BOX COLLECTOR x10(9)/L Specimen Anatomical Collection Method Collection Time Receive d Time (Source) Location / / Volume Laterality Blood (Blood, 04/19/2019 10:46 04/19/2019 Venous) AM COIN BOX COLLECTOR 11:01 AM COIN BOX COLLECTOR Ana Pickett APRN.N.P., D.N.P. LAB BLOOD ADD-ON Performing Organization Address [facility] Phon e Number [facility] [address] (ABNORMAL) Prothrombin Time (PT) (04/19/2019 10:46 AM COIN BOX COLLECTOR) [facility] Method Time Signature Prothrombin 58.0 (H) 9.4 - 12.5 04/19/2019 [facility] Time, P sec 11:14 AM COIN BOX COLLECTOR INR 5.1 (CH) 0.9 - 1.1 04/19/2019 [facility] 11:14 AM COIN BOX COLLECTOR Comment: ----ADDITIONAL INFORMATION---- Standard intensity warfarin therapeutic range: 2.0 to 3.0 ?? High intensity warfarin therapeutic rang e: 2.5 to 3.5 Specimen Anatomical Collection Method Collection Time Receive d Time (Source) Location / / Volume Laterality Blood (Blood, 04/19/2019 10:46 04/19/2019 Venous) AM COIN BOX COLLECTOR 11:01 AM COIN BOX COLLECTOR Renetta Greer APRN C.N.P., D.N.P. LAB BLOOD ADD-ON Performing Organization Address City/[facility] Phon e Number [facility] [address] Type and Screen (with reflex Antibody ID) (04/19/2019 10:45 AM COIN BOX COLLECTOR) [facility] gist Method Time Signature ABORh A Pos Not 04/19/2019 STR[facility] applicable 11:25 AM COIN BOX COLLECTOR Antibody Negative Negative 04/19/2019 [facility]M Screen 11:40 AM COIN BOX COLLECTOR Type & Screen 04/22/2019 04/19/2019 STRM Expiration 23:59 11:25 AM COIN BOX COLLECTOR Testing [place] DEFAULT 04/19/2019 STRM Location 11:00 AM COIN BOX COLLECTOR Specimen Anatomical Collection Method Collection Time Receive d Time (Source) Location / / Volume Laterality Blood (Arm, 04/19/2019 10:45 04/19/2019 Right) AM COIN BOX COLLECTOR 11:00 AM COIN BOX COLLECTOR Renetta Greer APRN C.N.P., D.N.P. LAB BLOOD BANK T EST ORDERABLES Performing Organization Address City/State/ZIP Code Phon e Number [facility] - [address] [place], [place] [address] [facility] [place] [address] [facility] [address] (ABNORMAL) Glucose, POCT (04/19/2019 10:44 AM COIN BOX COLLECTOR) athologist Signature Glucose, POCT, 206 (H) 70 - 140 04/19/2019 [facility] B mg/dL 10:55 AM COIN BOX COLLECTOR Site ARTLINE 04/19/2019 [facility] 10:55 AM COIN BOX COLLECTOR Specimen Anatomical Collection Method Collection Time Receive d Time (Source) Location / / Volume Laterality Blood 04/19/2019 10:44 04/19/2019 AM COIN BOX COLLECTOR 10:55 AM COIN BOX COLLECTOR Unknown Provider LAB POCT ORDERABLES-MANUAL Performing Organization Address City/State/ZIP Code Phon e Number POC [facility] [address] [place] [address] [place] [address] [place] [facility] [address] (ABNORMAL) ACT (Activated Clotting Time), POCT (04/19/2019 10:41 AM COIN BOX COLLECTOR) athologist Signature Activated 341 (H) 84 - 139 04/19/2019 [facility] Clotting Time, sec 10:53 AM COIN BOX COLLECTOR POCT Specimen Anatomical Collection Method Collection Time Receive d Time (Source) Location / / Volume Laterality Blood 04/19/2019 10:41 04/19/2019 AM COIN BOX COLLECTOR 10:53 AM COIN BOX COLLECTOR Unknown Provider LAB POCT ORDERABLES - DEVICE Performing Organization Address [facility] Phon e Number POC [facility] INPATIENT [address] [place], [place] [address] [place] [address] [place] [facility] [address] [place] [address] Echo - Intraprocedural Images Only (04/19/2019 8:52 AM COIN BOX COLLECTOR) Specimen (Source) Anatomical Location Collection Method / Collectio n Time Received Time / Laterality Volume Narrative CV EIMS - 04/21/2019 8:52 AM COIN BOX COLLECTOR Echocardiographic images obtained during EP. See EP report for findings. Marla Pham CV ECHO PROCEDURES Performing Organization Address [facility] Phon e Number CV EIMS NA INR, POCT (04/19/2019 8:37 AM COIN BOX COLLECTOR) P athologist Signature INR, POCT, B 2.4 04/19/2019 PCED 11:59 AM COIN BOX COLLECTOR Comment: ----ADDITIONAL INFORMATION---- Standard intensity warfarin therapeutic range: 2.0 to 3.0 ?? High intensity warfarin therapeutic rang e: 2.5 to 3.5 Specimen Anatomical Collection Method Collection Time Receive d Time (Source) Location / / Volume Laterality 04/19/2019 8:37 AM 0 COIN BOX COLLECTOR 11:59 AM COIN BOX COLLECTOR Unknown Provider LAB POCT ORDERABLES - DEVICE Performing Organization Address [facility] Phon e Number POC [facility] [address] [place] [address] OUTPATIENT LABS PCED [facility] [place] [address] [place] [facility] [address] [facility] (ABNORMAL) Glucose, POCT (04/19/2019 8:37 AM COIN BOX COLLECTOR) P athologist Signature Glucose, POCT, 224 (H) 70 - 140 04/19/2019 [facility] B mg/dL 8:41 AM COIN BOX COLLECTOR Specimen Anatomical Collection Method Collection Time Receive d Time (Source) Location / / Volume Laterality Blood 04/19/2019 8:37 AM 0 8:41 COIN BOX COLLECTOR AM COIN BOX COLLECTOR Unknown Provider LAB POCT ORDERABLES-MANUAL Performing Organization Address City/State/ZIP Code Phon e Number POC [facility] [address] [place] [address] PCLX [facility] [place] [address] [place] [facility] [address] documented in this [...] tablet 1,000 mg Given 04/21/2019 9:55 AM COIN BOX COLLECTOR 1,000 mg (TYLENOL) 1,000 mg, oral, Every 6 hours PRN, mild pain or score 1-3 of 10, Starting on Fri04/19/19 at 1502, Postprocedure (CV) benzocaine-menthol 15-3.6 mg per lozenge 1 Given 04/21 9:55 AM COIN BOX COLLECTOR 1 lozenge lozenge (CEPACOL) 1 lozenge, oral, Every 4 hours PRN, sore throat, Starting on Fri04/19/19 at 0934, Postprocedure (CV) Given 04/21/2019 4:53 AM COIN BOX COLLECTOR 1 lozenge Given 04/20/2019 9:14 PM COIN BOX COLLECTOR 1 lozenge clotrimazole-betamethasone 1-0.05 % Given 04/21/2019 8:36 AM COIN BOX COLLECTOR 1 application cream 1 application (LOTRISONE) 1 application, topical, 2 times daily, First dose on Fri04/19/19 at 2100, Postprocedure (CV) Given 04/20/2019 8:20 PM COIN BOX COLLECTOR 1 application Given 04/20/2019 8:49 AM COIN BOX COLLECTOR 1 application docusate sodium capsule 100 mg (COLACE) Given 04/21/2019 10:29 AM COIN BOX COLLECTOR 100 mg 100 mg, oral, 2 times daily PRN, constipation, Starting on Fri04/19/19 at 1502, Postprocedure (CV), Do NOT crush or chew. DULoxetine DR capsule 30 mg (CYMBALTA) Given 04/21/2019 8:38 AM COIN BOX COLLECTOR 30 mg 30 mg, oral, 2 times daily, First dose on Fri04/19/19 at 2100, Postprocedure (CV), See tube feeding guidelines for tube feeding administration instructions. Given 04/20/2019 8:13 PM COIN BOX COLLECTOR 30 mg Given 04/20/2019 8:46 AM COIN BOX COLLECTOR 30 mg ferrous sulfate tablet 65 mg of iron Given 04/21/2019 8:37 AM COIN BOX COLLECTOR 65 mg of iron 65 mg of iron, oral, Daily, First dose on Fri04/20/19 at 0900, Postprocedure (CV) Given 04/20/2019 8:45 AM COIN BOX COLLECTOR 65 mg of iron flecainide tablet 100 mg (TAMBOCOR) Given 04/21/2019 8:38 AM COIN BOX COLLECTOR 100 mg 100 mg, oral, 2 times daily, First dose on Fri04/19/19 at 2100 Given 04/20/2019 8:13 PM COIN BOX COLLECTOR 100 mg Given 04/20/2019 8:45 AM COIN BOX COLLECTOR 100 mg fluticasone furoate 100 mcg/actuation inhaler Given 8:36 AM COIN BOX COLLECTOR 1 puff 1 puff (ARNUITY ELLIPTA) 1 puff, inhalation, Daily, First dose on Fri04/20/19 at 0900, Postprocedure (CV), Rinse mouth with water after use to reduce aftertaste and incidence of candidiasis. Do not swallow. Given 04/20/2019 8:48 AM COIN BOX COLLECTOR 1 puff furosemide injection 20 mg (LASIX) Given 04/20/2019 9:13 AM COIN BOX COLLECTOR 20 mg 20 mg, intravenous, Once, On Fri04/20/19 at 0700, For 1 dose, Adults: Doses less than 120 mg: IV push over 20 mg/minute. Doses 120 mg or greater: IVPB at 4 mg/minute. Peds/Neonates: Doses less than 120 mg over 0.5 mg/kg/minute. Doses 120 mg or greater: IVPB at 4 mg/minute. furosemide injection 20 mg (LASIX) Given 04/20/2019 1:25 PM COIN BOX COLLECTOR 20 mg 20 mg, intravenous, Once, On Fri04/20/19 at 1330, For 1 dose, N/a furosemide injection 40 mg (LASIX) Given 04/21/2019 6:30 AM COIN BOX COLLECTOR 40 mg 40 mg, intravenous, Once, On Fri04/21/19 at 0700, For 1 dose, N/a levothyroxine tablet 25 mcg (SYNTHROID, Given 04/21/2019 6:30 AM COIN BOX COLLECTOR 25 mcg LEVOTHROID) 25 mcg, oral, Daily before breakfast, First dose on Fri04/20/19 at 0700, Postprocedure (CV) Given 04/20/2019 5:37 AM COIN BOX COLLECTOR 25 mcg magnesium sulfate in water IVPB 2 g New Bag 04/19/2019 6:06 PM COIN BOX COLLECTOR 2 g 25 mL/hr 2 g, intravenous, at 25 mL/hr, Administer over 120 Minutes, Once, On Fri04/19/19 at 1745, For 1 dose, Over 2 hours. premix bag metFORMIN tablet 500 mg (GLUCOPHAGE) Given 04/21/2019 8:38 AM COIN BOX COLLECTOR 500 mg 500 mg, oral, 2 times daily with meals, First dose on Fri04/19/19 at 1700 Given 04/20/2019 5:20 PM COIN BOX COLLECTOR 500 mg Given 04/20/2019 8:46 AM COIN BOX COLLECTOR 500 mg methyl salicylate-menthol 30-10 % cream 1 application (ICY HOT) 1 application, topical, Every 2 hour PRN, muscle/joint pain, Starting on Fri04/19/19 at 1628, @@ Generic Substitution for BenGay @@ @ metoprolol tartrate tablet 50 mg (LOPRES SOR) Given 04/21/2019 8:37 AM COIN BOX COLLECTOR 50 mg 50 mg, oral, 2 times daily, First dose on Fri04/19/19 at 2100 Given 04/20/2019 8:13 PM COIN BOX COLLECTOR 50 mg Given 04/20/2019 8:45 AM COIN BOX COLLECTOR [address] capsule 40 mg (PriLOSEC) Given 04/21/2019 6:30 AM COIN BOX COLLECTOR 40 mg 40 mg, oral, Daily before breakfast, First dose on Fri04/21/19 at 0700, Postprocedure (CV), Do NOT crush or chew. Capsule may be opened and the contents taken without crushing or chewing. potassium chloride ER tablet 40 mEq Given 04/19/2019 6:02 PM COIN BOX COLLECTOR 40 mEq (KLORCON/K-TAB) 40 mEq, oral, Once, [...] 8.6 mg (SENOKOT) Given 04/21/2019 10:29 AM COIN BOX COLLECTOR 8.6 mg 8.6 mg, oral, As needed, constipation, Starting on Fri04/19/19 at 0930, Postprocedure (CV) simvastatin tablet 20 mg (ZOCOR) Given 04/20/2019 8:13 PM COIN BOX COLLECTOR 20 mg 20 mg, oral, Daily at bedtime, First dose on Fri04/19/19 at 2100, Postprocedure (CV) Given 04/19/2019 8:12 PM COIN BOX COLLECTOR 20 mg sodium chloride 0.9 % injection 10 mL 10 mL, intravenous, As needed, line care , Peripheral Intravenous Catheter and Rapid Infusion Catheter, Starting on Fri at 2109, Prior to blood sampling, post blood transfusion or post blood sampling. sodium chloride 0.9 % injection 3 mL Given 04/20/2019 9:15 PM COIN BOX COLLECTOR 3 mL 3 mL, intravenous, As needed, line care, Peripheral Intravenous Catheter and Rapid Infusion Catheter, Starting on Fri04/20/19 at 2109, Prior to and following infusion and between multiple consecutive infusions. sodium chloride 0.9 % injection 3 mL Given 04/21/2019 8:38 AM COIN BOX COLLECTOR 3 mL 3 mL, intravenous, Every 12 hours scheduled, First dose on Fri04/21/19 at 0900, Peripheral Intravenous Catheter and Rapid Infusion Catheter: When no infusion to maintain patency. SUMAtriptan tablet 50 mg (IMITREX) Given 04/21/2019 4:44 AM COIN BOX COLLECTOR 50 mg 50 mg, oral, Every 2 hour PRN, migraine, Starting on Fri04/19/19 at 0930, For 2 doses, Postprocedure (CV), SUMAtriptan oral was interchanged for rizatriptan Given 04/20/2019 11:29 AM COIN BOX COLLECTOR 50 mg topiramate tablet 25 mg (TOPAMAX) Given 04/21/2019 8:38 AM COIN BOX COLLECTOR 25 mg 25 mg, oral, Daily, First dose on Fri04/20/19 at 0900, Postprocedure (CV) Given 04/20/2019 8:46 AM COIN BOX COLLECTOR 25 mg warfarin management (COUMADIN) oral, Daily, [...] 6 mg (COUMADIN) Given 04/19/2019 6:02 PM COIN BOX COLLECTOR 6 mg 6 mg, oral, Once, On Fri04/19/19 at 1700, For 1 dose warfarin tablet 6 mg (COUMADIN) Given 04/20/2019 5:20 PM COIN BOX COLLECTOR 6 mg 6 mg, oral, Once, On Fri04/20/19 at 1700, For 1 dose documented in this encounter Active and Recently Administered Medications Times are shown in COIN BOX COLLECTOR. Scheduled Medication Order 04/19/2019 04/20/2019 04/21/2019 clotrimazole-betamethasone [...] 0838 (Given - Provider: Talya Duffy REdilmaN.)0945 ([facility] Hold - Provider: Transfer Provider, Automatic - Reason: Patient not available)0954 ([facility] Unhold - Provider: Transfer Provider, Automatic) 30 mg, oral, 2 times daily, First dose o n Fri04/19/19 at 2100, Postprocedure (CV), See tube feeding guidelines for tube feeding administration instructions. ferrous sulfate tablet 65 mg of iron 084 5 (Given - Provider: Jhony Diego RMary Ann) 0837 (Given - Provider: Talya tierney R.N.)0945 ([facility] Hold - Provider: Transfer Provider, Automatic - Reason: Patient not available)0954 ([facility] Unhold - Provider: Transfer Provider, Automatic) 65 mg of iron, oral, Daily, First dose o n Fri04/20/19 at 0900, Postprocedure (CV) flecainide tablet 100 mg (TAMBOCOR) 2011 (Given - Prov ider: Naren Michaels REdilmaN.) 0845 (Given - Provider: Jhony smith REdilmaNEdilma)2012 (Given - Provider: Valerie Jaquez RMary Ann) 0838 (Given - Provider: Talya tierney R.N.)0945 ([facility] Hold - Provider: Transfer Provider, Automatic - Reason: Patient not available)0954 ([facility] Unhold - Provider: Transfer Provider, Automatic) 100 mg, oral, 2 times daily, First dose on Fri04/19/19 at 2100 fluticasone furoate 100 mcg/actuation inhaler 1 puff (ARNUIT Y ELLIPTA) 0848 (Given - Provider: Jhony Diego RMary Ann) 0836 (Given - Provider: Talya Duffy REdilmaNEdilma)0945 ([facility] Hold - Provider: Transfer Provider, Automatic - Reason: Patient not available)0954 ([facility] Unhold - Provider: Transfer Provider, Automatic) 1 [...] Provider, Automatic - Reason: Patient not available)0954 ([facility] Unhold - Provider: Transfer Provider, Automatic) 25 [...] Provider, Automatic - Reason: Patient not available)0954 ([facility] Unhold - Provider: Transfer Provider, Automatic) 500 mg, oral, 2 times daily with meals, First dose on Fri 0 at 1700 metoprolol tartrate tablet 50 mg (LOPRESSOR) 2011 (Giv en - Provider: Naren Michaels R.N.) 0845 (Given - Provider: Jhony smith RMary Ann)2012 (Given - Provider: Valerie Jaquez R.N.) 0837 (Given - Provider: Moise FlorNEdilma)0945 ([facility] Hold - Provider: Transfer Provider, Automatic - Reason: Patient not available)0954 ([facility] Unhold - Provider: Transfer Provider, Automatic) 50 mg, oral, 2 times daily, First dose on Fri04/19/[address] capsule 40 mg (PriLOSEC) 30 (Given - Provider: Candy Deluna RMary Ann)0945 ([facility] Hold - Provider: Transfer Provider, Automatic - Reason: Patient not available)0954 ([facility] Unhold - Provider: Transfer Provider, Automatic) 40 [...] (Given - Provider: Valerie Jaquez R.N.) 0945 ([facility] Hold - Provider: Transfer Provider, Automatic - Reason: Patient not available)0954 ([facility] Unhold - Provider: Transfer Provider, Automatic) 20 mg, oral, Daily at bedtime, First dos e on Fri04/19/19 at 2100, Postprocedure (CV) sodium chloride 0.9 % injection 3 mL 0838 (Given - Provider: Talya Duffy REdilmaNEdilma)0945 ([facility] Hold - Provider: Transfer Provider, Automatic - Reason: Patient not available)0954 ([facility] Unhold - Provider: Transfer Provider, Automatic) 3 mL, intravenous, Every 12 hours schedu led, First dose on Fri04/21/19 at 0900, Peripheral Intravenous Catheter and Rapid Infusion Catheter: When no infusion to maintain patency. topiramate tablet 25 mg (TOPAMAX) 0846 ( Given - Provider: Jhony Diego R.N.) 0838 (Given - Provider: Talya tierney R.N.)0945 ([facility] Hold - Provider: Transfer Provider, Automatic - Reason: Patient not available)0954 ([facility] Unhold - Provider: Transfer Provider, Automatic) 25 mg, oral, Daily, First dose on Fri04/20/19 at 0900, Postproce dure (CV) warfarin management (COUMADIN) 1700 (Due) 0 945 ([facility] Hold - Provider: Transfer Provider, Automatic - Reason: Patient not available)0954 ([facility] Unhold - Provider: Transfer Provider, Automatic) oral, [...] 04/21/2019 acetaminophen tablet 1,000 mg (TYLENOL) 0945 ([facility] Hold - Provider: Transfer Provider, Automatic - Reason: Patient not available)0954 ([facility] Unhold - Provider: Transfer Provider, Automatic)0955 (Given - Provider: Talya Duffy R.N.) 1,000 mg, oral, Every 6 hours PRN, mild pain or score 1-3 of 10, Starting on 04/19/19 at 1502, Postprocedure (CV) albuterol 90 mcg/actuation inhaler 2 puff (PROVENTIL HFA,VENTOLI N HFA) 0945 ([facility] Hold - Provider: Transfer Provider, Automatic - Reason: Patient not available)0953 ([facility] Unhold - Provider: Transfer Provider, Automatic) 2 puff, inhalation, Every 4 hours PRN, s hortness of breath, Starting Fri04/19/19 at 0928, Postprocedure (CV) alum-mag hydroxide-simeth 200-200-20 mg/5 mL suspension 15 mL (M AALOX) 0945 ([facility] Hold - Provider: Transfer Provider, Automatic - Reason: Patient not available)0953 ([facility] Unhold - Provider: Transfer Provider, Automatic) 15 mL, oral, Every 6 hours PRN, indigest ion, Starting 04/19/19 at 0928, Postprocedure (CV) atropine injection 0.5 mg 0945 ( [facility] Hold - Provider: Transfer Provider, Automatic - Reason: Patient not available)0954 ([facility] Unhold - Provider: Transfer Provider, Automatic) 0.5 [...] 0453 (Given - Provider: Aria Green R.N.)0945 ([facility] Hold - Provider: Transfer Provider, Automatic - Reason: Patient not available)0954 ([facility] Unhold - Provider: Transfer Provider, Automatic)0955 (Given - Provider: Talya Duffy RMary Ann) 1 lozenge, oral, Every 4 hours PRN, sore throat, Starting on Fri04/19/19 at 0934, Postprocedure (CV) carboxymethylcellulose 0.5 % ophthalmic solution 1 drop (REFRESH PLUS) 0945 ([facility] Hold - Provider: Transfer Provider, Automatic - Reason: Patient not available)0954 ([facility] Unhold - Provider: Transfer Provider, Automatic) 1 drop, both eyes, 4 times daily PRN, dr y eyes, Starting Fri04/19/19 at 0931, Postprocedure (CV) diazePAM tablet 2 mg (VALIUM) 09 45 ([facility] Hold - Provider: Transfer Provider, Automatic - Reason: Patient not available)0954 ([facility] Unhold - Provider: Transfer Provider, Automatic) 2 mg, oral, Every 2 hour PRN, anxiety, m uscle spasms, Starting Fri04/19/19 at 1502, For 2 doses, Postprocedure (CV), May repeat once if first dose ineffective. Until sheath removal. docusate sodium capsule 100 mg (COLACE) 0945 ([facility] Hold - Provider: Transfer Provider, Automatic - Reason: Patient not available)0954 ([facility] Unhold - Provider: Transfer Provider, Automatic)1038 (Not Given - Provider: Talya Duffy RManjeet. - Reason: Other) 100 mg, oral, 2 times daily PRN, constip ation, Starting Fri04/19/19 at 0934, Postprocedure (CV), Do NOT crush or chew. docusate sodium capsule 100 mg (COLACE) 0945 ([facility] Hold - Provider: Transfer Provider, Automatic - Reason: Patient not available)0954 ([facility] Unhold - Provider: Transfer Provider, Automatic)1029 (Given - Provider: Talya Duffy RMary Ann) 100 mg, oral, 2 times daily PRN, constip ation, Starting on Fri04/19/19 at 1502, Postprocedure (CV), Do NOT crush or chew. fentaNYL injection 25 mcg (SUBLIMAZE) 0945 ([facility] Hold - Provider: Transfer Provider, Automatic - [...] Provider, Automatic - Reason: Patient not available)0954 ([facility] Unhold - Provider: Transfer Provider, Automatic) 50 [...] Provider, Automatic - Reason: Patient not available)0954 ([facility] Unhold - Provider: Transfer Provider, Automatic) 3 mg, oral, Bedtime PRN, sleep, Starting Fri04/19/19 at 0934, Postprocedure (CV) methyl salicylate-menthol 30-10 % cream 1 application (ICY HOT) 0945 (MAY Hold - Provider: Transfer Provider, Automatic - Reason: Patient not available)0954 ([facility] Unhold - Provider: Transfer Provider, Automatic) 1 application, topical, Every 2 hour PRN , muscle/joint pain, Starting on Fri04/19/19 at 1628, @@ Generic Substitution for BenGay @@@ midazolam (PF) injection 1 mg (VERSED) 0945 (MAY Hold - Provider: Transfer Provider, Automatic - Reason: Patient not available)0954 ([facility] Unhold - Provider: Transfer Provider, Automatic) 1 mg, intravenous, Every 2 hour PRN, anx iety, muscle spasms, Starting Fri04/19/19 at 1502, For 2 doses, Postprocedure (CV), for over 2 minutes. May repeat x1 dosing interval. Patient must be NPO for 2 hours prior to giving. Until sheath removal. naloxone injection 0.2 mg (NARCAN) 0945 ([facility] Hold - Provider: Transfer Provider, Automatic - Reason: Patient not available)0954 ([facility] Unhold - Provider: Transfer Provider, Automatic) 0.2 mg, intravenous, As needed, respirat ory depression, Starting Fri04/19/19 at 1502, Postprocedure (CV), For respiratory rate less than 8 breaths per minute or RASS score of -3, -4, -5. Apply oxygen to keep oxygen saturations greater than 90% and notify service. oxyCODONE IR tablet 5 mg (ROXICODONE) 0945 ([facility] Hold - Provider: Transfer Provider, Automatic - Reason: Patient not available)0954 ([facility] Unhold - Provider: Transfer Provider, Automatic) 5 mg, oral, Every 6 hours PRN, moderate pain or score 4-6 of 10, Starting Fri04/19/19 at 1502, Postprocedure (CV), If acetaminophen ineffective and patient able to take oral analgesics polyethylene glycol powder packet 17 g (MIRALAX) 0945 ([facility] Hold - Provider: Transfer Provider, Automatic - Reason: Patient not available)0954 ([facility] Unhold - Provider: Transfer Provider, Automatic) 17 g, oral, As needed, constipation, Sta rting Fri04/19/19 at 0929, For 237 days, Postprocedure (CV), Dissolve in 240 mLs (8 ounces) of water prior to giving. Avoid mixing with starch-based thickened liquids. prochlorperazine injection 5 mg (COMPAZINE) 0945 ([facility] Hold - Provider: Transfer Provider, Automatic - Reason: Patient not available)0954 ([facility] Unhold - Provider: Transfer Provider, Automatic) 5 mg, intravenous, Every 6 hours PRN, na usea, vomiting, Starting on Fri04/19/19 at 1744 promethazine injection 6.25 mg (PHENERGAN) 0945 ([facility] Hold - Provider: Transfer Provider, Automatic - Reason: Patient not available)0954 ([facility] Unhold - Provider: Transfer Provider, Automatic) 6.25 mg, intravenous, Every 6 hours PRN, nausea, vomiting, Starting on Fri04/19/19 at 1744 sennosides tablet 8.6 mg (SENOKOT) 0945 ([facility] Hold - Provider: Transfer Provider, Automatic - Reason: Patient not available)0954 ([facility] Unhold - Provider: Transfer Provider, Automatic)1029 (Given - Provider: Talya Duffy REdilmaNEdilma) 8.6 mg, oral, As needed, constipation, S tarting on Fri04/19/19 at 0930, Postprocedure (CV) sodium chloride 0.9 % injection 10 mL 0945 ([facility] Hold - Provider: Transfer Provider, Automatic - Reason: Patient not available)0954 ([facility] Unhold - Provider: Transfer Provider, Automatic) 10 mL, intravenous, As needed, line care , Peripheral Intravenous Catheter and Rapid Infusion Catheter, Starting on Fri04/20/19 at 2109, Prior to blood sampling, post blood transfusion or post blood sampling. sodium chloride 0.9 % injection 3 mL 211 5 (Given - Provider: Valerie Jaquez RMary Ann) 0945 ([facility] Hold - Provider: Transfer Prov ider, Automatic - Reason: Patient not available)0954 ([facility] Unhold - Provider: Transfer Provider, Automatic) 3 [...] documented as of this encounter Care Teams Svp Relationship Specialty Start Date End Date Elsewhere, Pcp PCP - General Internal Medicine 07/27/18 documented as of this encounter
--- OUTSIDE RECORDS SUMMARY | 2022-02-26 09:09 | XMS_ITS | Encounter Summary ---
:[address] [facility] Address [address] [place] [address] Care Team Providers Name Role Phone Elsewhere, Pcp Primary Care Provider Unavailable Encounter Details Date Type Department Care Team Description 07/06/2019 Clinical Communication Department of [facility] Cardiovascular Medicine Porfirio in [facility] nasim Kellogg [address] [facility] [address] [place] [address] [place], [place] [phone] Social History Tobacco Use Types Packs/Day [...] do you attend sikhism or Never 2018 episcopalian services? Do you [...] documented as of this encounter Care Teams Taxi Cab Driver Relationship Specialty Start Date End Date Elsewhere, Pcp PCP - General Internal Medicine 07/27/18 documented as of this encounter
--- OUTSIDE RECORDS SUMMARY | 2022-02-26 09:09 | XMS_ITS | Encounter Summary ---
:1955 Author Organization [facility] Address [address] [place] [address] Care Team Providers Name Role Phone Elsewhere, Pcp Primary Care Provider Unavailable Reason for Visit Reason Onset Date Comments Follow-up 05/18/2019 Encounter Details Date Type Department Care Team Description 05/18/2019 Clinical Communication Outpatient Surgery and Jovani Ingram, Follow-up Procedural Admissions R.NEdilma, CCRN in [place], [address] [place], [place] [address] [facility] [id number] [place], [place] [phone] (Work) [phone] Social History Tobacco Use Types Packs/Day Years [...] do you attend buddhist or Never 2018 amish services? Do you [...] as of this encounter Care Teams Manager Business Planning Relationship Specialty Start Date End Date Elsewhere, Pcp PCP - General Internal Medicine 07/27/18 documented as of this encounter
--- OUTSIDE RECORDS SUMMARY | 2022-02-26 09:09 | XMS_ITS | Encounter Summary ---
:1955 Author Organization [facility] Address [address] [place] [address] Care Team Providers Name Role Phone Elsewhere, Pcp Primary Care Provider Unavailable Reason for Visit Outpatient (Routine) - Closed Specialty Diagnoses / Procedures Referred By Referred To Contact Contact Cardiovascular Diseases / Diagnoses Flutter Atrial (HCC) Atrial Fibrillation Paroxysmal (HCC) [facility] [address] [place] [phone] Referral ID Status Reason Start Date Expiration Date Visits Requ ested Visits Authorized [id number] Closed 04/21/2019 04/20/2020 1 1 Encounter Details Date Type Department Care Team Description 08/19/2019 Office Visit Department of Naren Arroyo M.D. Flutter Atrial (HCC); Cardiovascular Medicine Porfirio Villegas M.D. [address] [place] [phone] Atrial Fibrillation Paroxysmal (HCC) in [facility] [address] [place] [phone] Social History Tobacco Use Types [...] do you attend restorationist or Never 2018 hinduism services? Do you [...] documented as of this encounter Care Teams Gold Tooler Relationship Specialty Start Date End Date Elsewhere, Pcp PCP - General Internal Medicine 07/27/18 documented as of this encounter
--- OUTSIDE RECORDS SUMMARY | 2022-02-26 09:09 | XMS_ITS | Encounter Summary ---
:1955 Author Organization [facility] Address [address] [place] [address] Care Team Providers Name Role Phone Elsewhere, Pcp Primary Care Provider Unavailable Reason for Visit Reason Comments COVID Inquiry Encounter Details Date Type Department Care Team Description 01/03/2020 Clinical Communication Department of [facility] in [place], [place] [address] [place] [phone] Social History Tobacco Use Types [...] do you attend rastafari or Never 2018 restorationist services? Do you [...] documented as of this encounter Care Teams Tiller Worker Relationship Specialty Start Date End Date Elsewhere, Pcp PCP - General Internal Medicine 07/27/18 documented as of this encounter
--- OUTSIDE RECORDS SUMMARY | 2022-02-26 09:10 | XMS_ITS | Encounter Summary ---
:1955 Author Organization [facility] Address [address] [place] [address] Care Team Providers Name Role Phone Elsewhere, Pcp Primary Care Provider Unavailable Encounter Details Date Type Department Care Team Description 04/19/2019 Surgery Division of Cardiovascular Carole Yeager, ABLATION - PVI Diseases in [facility] [address] [facility] [address] [place] [id number] [phone] (Wo rk) Social History Tobacco Use Types [...] do you attend latter-day or Never 2018 religion services? Do you [...] Comments Blood Pressure 147/103 04/19/2019 8:35 AM PRIVATE DUTY NURSE Pulse - - Temperature - - Respiratory Rate 16 04/19/2019 8:35 AM PRIVATE DUTY NURSE Oxygen Saturation 94% 04/19/2019 8:35 AM PRIVATE DUTY NURSE Inhaled Oxygen Concentration - - Weight 98.4 kg (216 lb 14.9 oz) 04/19/2019 8:35 AM PRIVATE DUTY NURSE Height 165.6 cm (5' 5.2) 04/19/2019 8:35 AM PRIVATE DUTY NURSE Body Mass Index 35.85 04/19/2019 8:35 AM PRIVATE DUTY NURSE documented in this encounter Discharge Summaries Tucker Rutherford P.A.-C. - 04/21/2019 10:04 AM CST Images from the original note were not included. DISCHARGE SUMMARY BRIEF OVERVIEW Discharge Provider: Marla Yeager M.B.B.S. Primary Care Providers: Elsewhere, Pcp (General) [address] [place] [id number] Primary Care Provider Phone Number: None Primary [...] HOSPITAL COURSE Iris Metcalf was discharged from [facility] following an ablation performed by Dr. Yeager [...] in approximately 3 months at [facility] in Heart Rhythm Services. Testing at that time will include a 24 hr Holter monitor, ECG, echocardiogram, and cardiac Ct. Patient was also instructed to follow up with Primary Care locally in the next 7-10 days for post hospital follow up. Discharge instructions were provided to the patient and caregiver(s). Juan J Rutherford P.A.-C. ATE DUTY NURSE documented in this encounter Discharge Instructions Discharge InstructionsHiTucker fish P.A.-C. - 04/21/2019 11:05 AM PRIVATE DUTY NURSE Hospital Problems as of 04/21/2019 1. * [...] 4:00 p.m., contact the Electrophysiology Service at [phone]. For questions occurring after business hours, on weekends, nights, or holidays call [phone] and ask for Electrophysiology Roving Department End Finder. General Follow-Up: You should follow up locally with your primary care provider in approximately 2 weeks for post hospitalization follow-up. Take a copy of the dismissal summary from [facility] to your provider. [facility] Follow-Up: A follow-up appointment will be scheduled for you in 3 months in the Heart Rhythm Center or Cardiovascular Exam Room. You will be contacted by [facility] to set up the follow up. Tests will include the following: electrocardiogram, 24-hour Holter monitor, transthoracic echocardiogram, and CT scan of heart. Our appointment coordinators will be contacting you. If you have not been notified about your appointment, please contact the electrophysiology gis coordinator at . Anticoagulation: Anticoagulation with Coumadin [...] avoid/skip your follow-up appointments, they are important! ATE DUTY NURSE AttachmentsThe following attachments cannot be sent through [...] and Lissette Breen, PharmJohn., R.Ph. Contact Pager [phone] with any questions about this note. ATE DUTY NURSE Tucker Rutherford P.A.-C. - 04/20/2019 11:26 AM [...] have been answered. Juan J Rutherford P.A.-C. ATE DUTY NURSE Porfirio Villegas M.D. - 04/20/2019 8:20 AM [...] Clinical Cardiac Electrophysiology Fellow 04/20/2019 8:21 AM PRIVATE DUTY NURSE ATE DUTY NURSE Aria Houser APRN C.N.P., M.S.N. - 04/19/2019 [...] the hospital for monitoring while on flecainide. ATE DUTY NURSE Jayda Whitehead, Pharm.D., R.Ph. - 04/19/2019 4:01 [...] and Jayda Haddad Pharm.D., R.Ph. Contact Pager [phone] with any questions about this note. ATE DUTY NURSE documented in this encounter Procedure Notes Porfirio [...] BLOOD LOSS Estimated Blood Loss: 1-75 ml ATE DUTY NURSE documented in this encounter Consult Notes Flores Romeo R.N. - 04/21/2019 9:05 AM CSTAssociated Order(s): IP CONSULT TO CARE MANAGEMENT Discharge Planning Assessment SUBJECTIVE Referral Data Referral Source: Nurse Referral Name: Valerie Jaquez RMary Ann Referral Reason: Discharge Planning Discharge Planning: Other (Comment)(halfway care facility) Who was present during the interview?: Patient Agile Project Manager Services Used: No Patient Information Primary Caregiver: Other (Comment)(staff at facility) Primary Nurse Name/Number: Bernie Diet/Texture: By mouth Legal Information Legal Decision Maker: Self Advance Directives: Power of Cloth Folder Hand for health care, Power of Cloth Folder Hand for finance Advance Directives Status: Not Activated Power of Cloth Folder Hand for Health Care Agent Name: Ramin Metcalf Power of Cloth Folder Hand for Health Agent Contact Info: [phone] Power of Cloth Folder Hand for Finance Agent Name: Ramin Metcalf Power of Cloth Folder Hand for Finance Agent Contact Info: [phone] Caregiver Information Caregiver Name: [facility] Caregiver Relationship: paid staff Caregiver Caregiver Address: [address] [place] [address] Services Requested Discharge Planning to Facility OBJECTIVE [...] speaking, Understands Martiniquais Environmental Supports Home Environment: [facility] Care Facility Name: [facility] Anticipated Modifications to the Patient's Home: [...] Residence: Other (Comment) Type of Residence Other: [facility] Care Facility Name: [facility] Support Systems: Children Assistance Recommended after Discharge: 24 hour supervision Home Care Services: No Anticipated Discharge Destination: [facility] ([place], [place]) Does the patient need discharge transport arranged?: Yes Has discharge transport been arranged?: Yes What day is the transport expected?: 04/21/19 What time is the transport expected?: 1130 Discharge Provided By: [facility]: [phone] ASSESSMENT / PLAN ??Assessment: Met with the patient to discuss her prior level of care and home going needs. I reviewed my role of Airline Mechanic. Patient reviewed her current hospitalization and appears to have understanding, insightand competence of her needs. Patient reviewed her home environment and support system; reviewing that her primary child care worker - facility staff will be able to provide care to patient post discharge. Patient reports that she feels safe and supported to return [facility]. ?? Patient stated that she has two sons that are her support system. Patient hopes to transition to an assisted living center. Plan: Patient appears to have understanding, insight and competence into patient needs and is appropriately planning for discharge at this time. I recommended the following: none at this time 1. Patient plans to return to [facility] once medically stable for DC 2. Resources given:None 3. CM will continue to follow for any needs that arise. 4. Transportation home will be provided by [facility] [phone]. 5. Reconnections needed [facility]. Patient to return to: Destination - Selection Complete Service Provider Request Status Selected Services Address Phone Number Fax Number [facility] Selected Transitional Care Unit [address] [facility] [address] [phone] Contact: Intake Patient has a MA bedhold. Facility prefers patient return by 1300. Transportation to be provided by [facility] at 1130. Please contact Case Management if [...] arise. Signed by: Flores Romeo R.N. 04/21/2019 ATE DUTY NURSE documented in this encounter Nursing Notes Talya Duffy R.N. - 04/21/2019 10:55 AM CST Pt d/c to [facility]. Facility AVS, discharge summary and MAR report printed, discussed andhanded to pt to relay to SNF. Nurse to nurse report done. Education complete. Teach-back acquired. All questions answered. Transport arranged. Escort requested. ATE DUTY NURSE Mary Cortés R.REdilmaTEdilma, L.R.T. - 04/20/2019 12:42 AM CST Patient is a 64 y.o. female admitted on 04/19/2019 Alert Information: Plan of Care: Patient refused PAP therapy tonight. RT will continue to offer assistance. Principal Problem Atrial Fibrillation Paroxysmal (HCC) Oxygen Therapy $Delivery Method: Room air Arterial Line 04/19/19 Right Radial (Active) Placement Date/Time: 04/19/19 (c) 3767 Procedural Pause Completed: Yes Hand Hygiene Performed Prior to Insertion: Yes Site Prep: Chlorhexidine (Preferred) Sterile Barriers Used : Cap;Gloves;Gown;Large drape;Mask (Clinician);Mask (All others in ro... ATE DUTY NURSE Naren Michaels R.N. - 04/19/2019 9:35 PM CST Shift Goals: Clinical Goals for the Shift: pt remain safe Identify possible barriers to meeting goals/advancing plan of care: pt up with assist and walker End of Shift Summary: met ATE DUTY NURSE Naren Peng R.R.T., L.R.T. - 04/19/2019 5:29 PM CST Assist with CPAP ATE DUTY NURSE Robbie Emerson R.N. - 04/19/2019 8:38 AM CST Patient was admitted for ablation/ electrophysiology procedure. Reviewed HPI, preliminary testing and confirmed medications taken this morning. The last dose of Warfarin taken was 04/19/2019. Pain management strategies post-procedure were discussed. All questions were answered. Patient would like family member Ramin updated with procedural updates. The phone number to reach this family member is [phone]. ATE DUTY NURSE documented in this encounter Plan of Treatment Scheduled Referrals Name Type Priority Associated Diagnoses Order S [facility] Cardiovascular Disease Outpatient Routine Flutter A trial ([facility]) Expected: - Heart rhythm consult Referral Atrial Fibrillatio n 07/21/2019 (clinic) Paroxysmal ([facility]) (Approximat e), Expires: 04/21/2022 documented as of this encounter Procedures Procedure Name Priority Date/Time Associated Comments Diagnosis ECG Routine 04/21/2019 Results for 10:47 AM PRIVATE DUTY NURSE this procedure are in the results section. PROTHROMBIN TIME (PT), Routine 04/21/2019 6:15 Re sults for P AM PRIVATE DUTY NURSE this procedure are in the results section. CBC WITH DIFFERENTIAL, Routine 04/21/2019 6:15 Re sults for B AM PRIVATE DUTY NURSE this procedure are in the results section. BUN (BLOOD UREA Routine 04/21/2019 6:15 Results f or NITROGEN), S/P AM PRIVATE DUTY NURSE this procedur e are in the results section. POTASSIUM, S/P Routine 04/21/2019 6:15 Results fo r AM PRIVATE DUTY NURSE this procedure are in the results section. MAGNESIUM, S Routine 04/21/2019 6:15 Results for AM PRIVATE DUTY NURSE this procedure are in the results section. CREATININE WITH EGFR, Routine 04/21/2019 6:15 Res ults for S/P AM PRIVATE DUTY NURSE this procedure are in the results section. ECG Routine 04/20/2019 Results for 10:44 PM PRIVATE DUTY NURSE this procedure are in the results section. DX CHEST AP OR PA AND RAD - Timed 04/20/2019 8:18 Res ults for LATERAL 2 VIEWS (for specific AM PRIVATE DUTY NURSE this proced ure dates/times) are in the results section. ECG Routine 04/20/2019 6:42 Results for AM PRIVATE DUTY NURSE this procedure are in the results section. PROTHROMBIN TIME (PT), Routine 04/20/2019 6:34 Re sults for P AM PRIVATE DUTY NURSE this procedure are in the results section. CBC WITH DIFFERENTIAL, Routine 04/20/2019 6:34 Re sults for B AM PRIVATE DUTY NURSE this procedure are in the results section. BUN (BLOOD UREA Routine 04/20/2019 6:34 Results f or NITROGEN), S/P AM PRIVATE DUTY NURSE this procedur e are in the results section. POTASSIUM, S/P Routine 04/20/2019 6:34 Results fo r AM PRIVATE DUTY NURSE this procedure are in the results section. MAGNESIUM, S Routine 04/20/2019 6:34 Results for AM PRIVATE DUTY NURSE this procedure are in the results section. CREATININE WITH EGFR, Routine 04/20/2019 6:34 Res ults for S/P AM PRIVATE DUTY NURSE this procedure are in the results section. GLUCOSE POCT, B Routine 04/19/2019 4:12 Results f or PM PRIVATE DUTY NURSE this procedure are in the results section. POTASSIUM, S/P STAT 04/19/2019 3:42 Results fo r PM PRIVATE DUTY NURSE this procedure are in the results section. MAGNESIUM, S STAT 04/19/2019 3:42 Results for PM PRIVATE DUTY NURSE this procedure are in the results section. PROTHROMBIN TIME (PT), STAT 04/19/2019 2:53 Re sults for P PM PRIVATE DUTY NURSE this procedure are in the results section. ABLATION - ATRIAL Routine 04/19/2019 2:26 Atrial Results for FLUTTER - RIGHT PM PRIVATE DUTY NURSE Fibrillation (HCC) this p rocedure are in the results section. ABLATION - WACA Routine 04/19/2019 2:26 Atrial Results f or PM PRIVATE DUTY NURSE Fibrillation (HCC) this proc edure are in the results section. HEART RHYTHM PROCEDURE Routine 04/19/2019 2:26 Atrial Re sults for PM PRIVATE DUTY NURSE Fibrillation (HCC) this proc edure are in the results section. HEART RHYTHM PROCEDURE Routine 04/19/2019 2:26 Atrial Re sults for PM PRIVATE DUTY NURSE Fibrillation (HCC) this proc edure are in the results section. HEART RHYTHM PROCEDURE Routine 04/19/2019 2:26 Atrial Re sults for PM PRIVATE DUTY NURSE Fibrillation (HCC) this proc edure are in the results section. ABLATION PVI Routine 04/19/2019 2:26 Atrial Results for PM PRIVATE DUTY NURSE Fibrillation (HCC) this proc edure are in the results section. ABG AND LYTES EG6+, Routine 04/19/2019 2:10 Resul ts for POCT, B PM PRIVATE DUTY NURSE this procedure are in the results section. ACT, POCT, B Routine 04/19/2019 2:03 Results for PM PRIVATE DUTY NURSE this procedure are in the results section. GLUCOSE POCT, B Routine 04/19/2019 2:02 Results f or PM PRIVATE DUTY NURSE this procedure are in the results section. ACT, POCT, B Routine 04/19/2019 1:19 Results for PM PRIVATE DUTY NURSE this procedure are in the results section. ABG AND LYTES EG6+, Routine 04/19/2019 Results for POCT, B 12:58 PM PRIVATE DUTY NURSE this procedure are in the results section. ACT, POCT, B Routine 04/19/2019 Results for 12:48 PM PRIVATE DUTY NURSE this procedure are in the results section. GLUCOSE POCT, B Routine 04/19/2019 Results for 12:47 PM PRIVATE DUTY NURSE this procedure are in the results section. ACT, POCT, B Routine 04/19/2019 Results for 12:19 PM PRIVATE DUTY NURSE this procedure are in the results section. PROTHROMBIN TIME (PT), STAT 04/19/2019 Resul ts for P 12:16 PM PRIVATE DUTY NURSE this procedure are in the results section. ACT, POCT, B Routine 04/19/2019 Results for 11:55 AM PRIVATE DUTY NURSE this procedure are in the results section. ACT, POCT, B Routine 04/19/2019 Results for 11:27 AM PRIVATE DUTY NURSE this procedure are in the results section. ACT, POCT, B Routine 04/19/2019 Results for 11:05 AM PRIVATE DUTY NURSE this procedure are in the results section. PROTHROMBIN TIME (PT), STAT 04/19/2019 Resul ts for P 10:46 AM PRIVATE DUTY NURSE this procedure are in the results section. CBC WITH DIFFERENTIAL, STAT 04/19/2019 Resul ts for B 10:46 AM PRIVATE DUTY NURSE this procedure are in the results section. BASIC METABOLIC PANEL, STAT 04/19/2019 Resul ts for S/P 10:46 AM PRIVATE DUTY NURSE this procedure are in the results section. TYPE AND SCREEN STAT 04/19/2019 Results for 10:45 AM PRIVATE DUTY NURSE this procedure are in the results section. GLUCOSE POCT, B Routine 04/19/2019 Results for 10:44 AM PRIVATE DUTY NURSE this procedure are in the results section. ACT, POCT, B Routine 04/19/2019 Results for 10:41 AM PRIVATE DUTY NURSE this procedure are in the results section. ECHO - INTRAPROCEDURAL Routine 04/19/2019 8:52 Re sults for IMAGES ONLY AM PRIVATE DUTY NURSE this procedure are in the results section. INR, POCT, B Routine 04/19/2019 8:37 Results for AM PRIVATE DUTY NURSE this procedure are in the results section. GLUCOSE POCT, B Routine 04/19/2019 8:37 Results f or AM PRIVATE DUTY NURSE this procedure are in the results section. [...] CDT For the complete report, see the [employer] Documents. Final Impressions 1. Echocardiogram performed [...] 08/19/2019 For the complete report, see the [employer] Documents. Final Impressions 1. Echocardiogram performed [...] ECHO PROCEDURES HOLTER MONITOR - IN CLINIC NURSE SANE (08/18/2019 10:48 AM CDT) [facility] gist Method Time Signature SVE Max Per [id number] HOLTER Hour Time SENTINEL SVE Max Per 2 count HOLTER Hour SENTINEL VE Total Beats 1 count HOLTER SENTINEL VE Percent 0 percent HOLTER Beats SENTINEL Mean Heart 66 bpm HOLTER Rate SENTINEL VT Runs 0 count HOLTER SENTINEL SVE Total 5 count HOLTER Beats SENTINEL Max Heart Rate 83 bpm HOLTER SENTINEL AF Count 0 count HOLTER SENTINEL Min Heart Rate [id number] HOLTER Time SENTINEL Recording Date [id number] HOLTER SENTINEL Tachycardia 0 count HOLTER Runs SENTINEL Holter Pauses 0 count HOLTER SENTINEL SVT Runs 0 count HOLTER SENTINEL Bradycardia 0 count HOLTER Runs SENTINEL Analysis Date 20,200,529 HOLTER SENTINEL Min Heart Rate 54 bpm HOLTER SENTINEL VE Max Per [id number] HOLTER Hour Time SENTINEL SVE Percent 0 percent HOLTER Beats SENTINEL VE Max Per 1 count HOLTER Hour SENTINEL Max Heart Rate [id number] HOLTER Time SENTINEL Specimen (Source) Anatomical Collection Method Collection Time Re ceived Time Location / / Volume Laterality 08/18/2019 10:49 AM CDT Narrative This result has an attachment that is no t available. Tucker Rutherford P.A.-C. CV CARDIAC SERVICES PROCEDUR ES Performing Organization Address [facility] Phon e Number HOLTER SENTINEL HOLTER SENTINEL NA ECG 12 Lead (08/18/2019 10:23 AM CDT) [facility] gist Method Time Signature Ventricular 66 BPM MUSE Rate ECG/Min MA Interval 202 ms MUSE QRSD Interval 118 ms MUSE QT Interval 480 ms MUSE QTC Interval 503 ms MUSE P [place] 73 degrees MUSE R [place] 94 degrees MUSE T Wave [place] 47 degrees MUSE CODED DIAGNOSIS MUSE Semi-Urgent [...] Rutherford P.A.-C. ECG ORDERABLES Performing Organization Address [facility] Code Phon e Number MUSE [...] thoracic spine. Cholecystectomy clips se en on rouge sifter and miller images. GUIDELINES FOR FOLLOW-UP of newly detect [...] thoracic spine. Cholecystectomy clips se en on rouge sifter and miller images. GUIDELINES FOR FOLLOW-UP of newly detect [...] PROCEDURES ECG 12 Lead (04/21/2019 10:47 AM PRIVATE DUTY NURSE) P athologist Signature Ventricular Rate 73 BPM MUSE ECG/Min MA Interval 204 ms MUSE QRSD Interval 110 ms MUSE QT Interval 414 ms MUSE QTC Interval 456 ms MUSE P Milton 69 degrees MUSE R Milton 104 degrees MUSE T Wave [place] 27 degrees MUSE Specimen Anatomical Collection Method Collection Time Receive d Time (Source) Location / / Volume Laterality 04/21/2019 10:47 04/21/2019 AM PRIVATE DUTY NURSE 10:55 AM PRIVATE DUTY NURSE Impressions MUSE - 04/21/2019 10:55 AM PRIVATE DUTY NURSE Normal sinus rhythm with 1st degree A-V [...] MUSE MUSE NA Magnesium (04/21/2019 6:15 AM PRIVATE DUTY NURSE) P athologist Signature Magnesium, S 2.0 1.7 - 2.3 04/21/2019 DTL mg/dL 7:39 AM PRIVATE DUTY NURSE Specimen Anatomical Collection Method Collection Time Receive d Time (Source) Location / / Volume Laterality Blood (Blood, 04/21/2019 6:15 AM 04/21/19 20 6:39 Venous) PRIVATE DUTY NURSE AM PRIVATE DUTY NURSE Tucker Rutherford P.A.-C. LAB BLOOD ADD-ON Performing Organization Address City/State/ZIP Code Phon e Number [facility]IES - [address] [place], [place] [address] [facility] [place] [address] Laboratories-[facility] [address] [facility] (ABNORMAL) Prothrombin Time (PT) (04/21/2019 6:15 AM PRIVATE DUTY NURSE) Patholo gist Method Time Signature Prothrombin 28.6 (H) 9.4 - 12.5 04/21/2019 DTL Time, P sec 6:54 AM PRIVATE DUTY NURSE INR 2.6 0.9 - 1.1 04/21/2019 DTL 6:54 AM PRIVATE DUTY NURSE Comment: ----ADDITIONAL INFORMATION---- Standard intensity warfarin therapeutic range: 2.0 to 3.0 ?? High intensity warfarin therapeutic rang e: 2.5 to 3.5 Specimen Anatomical Collection Method Collection Time Receive d Time (Source) Location / / Volume Laterality Blood (Blood, 04/21/2019 6:15 AM 04/21/19 20 6:39 Venous) PRIVATE DUTY NURSE AM PRIVATE DUTY NURSE Aria Houser APRN, C.N.P., M.S.N. LAB BLOOD ADD-ON Performing Organization Address City/State/ZIP Code Phon e Number [facility]IES - [address] [place], [place] [address] [facility] [place] [address] Laboratories-[facility] [address] (ABNORMAL) CBC with Differential, Blood (04/21/2019 6:15 AM PRIVATE DUTY NURSE) [facility] Method Time Signature Hemoglobin 12.1 11.6 - 04/21/2019 DTL 15.0 g/dL 6:45 AM PRIVATE DUTY NURSE Hematocrit 38.0 35.5 - 04/21/2019 DTL 44.9 % 6:45 AM PRIVATE DUTY NURSE Erythrocytes 4.03 3.92 - 04/21/2019 DTL 5.13 6:45 AM PRIVATE DUTY NURSE x10(12)/L MCV 94.3 78.2 - 04/21/2019 DTL 97.9 fL 6:45 AM PRIVATE DUTY NURSE RBC Distrib Width 12.3 12.2 - 04/21/2019 DTL 16.1 % 6:45 AM PRIVATE DUTY NURSE Platelet Count 296 157 - 371 04/21/2019 DTL x10(9)/L 6:45 AM PRIVATE DUTY NURSE Leukocytes 11.7 (H) 3.4 - 9.6 04/21/2019 DTL x10(9)/L 6:45 AM PRIVATE DUTY NURSE Neutrophils 8.57 (H) 1.56 - 04/21/2019 DTL 6.45 6:45 AM PRIVATE DUTY NURSE x10(9)/L Lymphocytes 2.03 0.95 - 04/21/2019 DTL 3.07 6:45 AM PRIVATE DUTY NURSE x10(9)/L Monocytes 0.91 (H) 0.26 - 04/21/2019 DTL 0.81 6:45 AM PRIVATE DUTY NURSE x10(9)/L Eosinophils 0.14 0.03 - 04/21/2019 DTL 0.48 6:45 AM PRIVATE DUTY NURSE x10(9)/L Basophils 0.08 0.01 - 04/21/2019 DTL 0.08 6:45 AM PRIVATE DUTY NURSE x10(9)/L Specimen Anatomical Collection Method Collection Time Receive d Time (Source) Location / / Volume Laterality Blood (Blood, 04/21/2019 6:15 AM 04/21/19 20 6:40 Venous) PRIVATE DUTY NURSE AM PRIVATE DUTY NURSE Marla RendonSEdilma LAB BLOOD ADD-ON Performing Organization Address City/State/ZIP Code Phon e Number [facility]IES - [address] [place], [place] [address] [place] [address] Laboratories-[address] Creatinine with Estimated GFR (04/21/2019 6:15 AM PRIVATE DUTY NURSE) athologist Signature Creatinine 0.85 0.59 - 04/21/2019 DTL 1.04 mg/dL 7:39 AM PRIVATE DUTY NURSE eGFR-Non 74 >=60 04/21/2019 DTL Black/ mL/min/BSA 7:39 AM PRIVATE DUTY NURSE Cook Islander Comment: ----ADDITIONAL INFORMATION---- Estimated GFR calculated using the 2009 CKD_EPI creatinine equation. eGFR-Black/ 85 >=60 mL/min/BSA 2019 7:39 AM PRIVATE DUTY NURSE DTL Comment: ----ADDITIONAL INFORMATION---- Estimated GFR calculated using the 2009 CKD_EPI creatinine equation. Specimen Anatomical Collection Method Collection Time Receive d Time (Source) Location / / Volume Laterality Blood (Blood, 04/21/2019 6:15 AM 04/21/19 20 6:39 Venous) PRIVATE DUTY NURSE AM PRIVATE DUTY NURSE Marla RendonSEdilma LAB BLOOD ADD-ON Performing Organization Address City/State/ZIP Code Phon e Number [facility] - [address] [place], [place] [address] [place] [address] Laboratories[address] BUN (Blood Urea Nitrogen) (04/21/2019 6:15 AM PRIVATE DUTY NURSE) athologist Signature BUN (Blood Urea 13 6 - 21 04/21/2019 DTL Nitrogen), S mg/dL 7:39 AM PRIVATE DUTY NURSE Specimen Anatomical Collection Method Collection Time Receive d Time (Source) Location / / Volume Laterality Blood (Blood, 04/21/2019 6:15 AM 04/21/19 20 6:39 Venous) PRIVATE DUTY NURSE AM PRIVATE DUTY NURSE Marla RendonSEdilma LAB BLOOD ADD-ON Performing Organization Address City/State/ZIP Code Phon e Number [facility] - [address] [address] [facility] [address] [facility] Potassium (04/21/2019 6:15 AM PRIVATE DUTY NURSE) athologist Signature Potassium, S 5.0 3.6 - 5.2 04/21/2019 DT mmol/L 7:39 AM PRIVATE DUTY NURSE Specimen Anatomical Collection Method Collection Time Receive d Time (Source) Location / / Volume Laterality Blood (Blood, 04/21/2019 6:15 AM 04/21/19 20 6:39 Venous) PRIVATE DUTY NURSE AM PRIVATE DUTY NURSE Marla Pham LAB BLOOD ADD-ON Performing Organization Address City/State/ZIP Code Phon e Number [facility]ATORIES - [id number] [place] [address] ECG 12 Lead (04/20/2019 10:44 PM PRIVATE DUTY NURSE) athologist Signature Ventricular Rate 82 BPM MUSE ECG/Min MA Interval 198 ms MUSE QRSD Interval 106 ms MUSE QT Interval 374 ms MUSE QTC Interval 436 ms MUSE P [place] 67 degrees MUSE R [place] 89 degrees MUSE T Wave [place] -4 degrees MUSE Specimen Anatomical Collection Method Collection Time Receive d Time (Source) Location / / Volume Laterality 04/20/2019 10:44 04/21/2019 5:08 PM PRIVATE DUTY NURSE AM PRIVATE DUTY NURSE Impressions MUSE - 04/21/2019 5:08 AM PRIVATE DUTY NURSE Normal sinus rhythm ST and T wave [...] and Lateral 2 Views (04/20/2019 8:18 AM PRIVATE DUTY NURSE) Anatomical Region Laterality Modality Chest, Thoracic RST LOS, Thoracic ARZ LOS, Thoracic N/A Digital Radiography FLA LOS Specimen (Source) Anatomical Collection Method Collection Time Re ceived Time Location / / Volume Laterality 04/20/2019 8:19 AM PRIVATE DUTY NURSE Impressions 04/20/2019 8:37 AM PRIVATE DUTY NURSE Since 06/29/2018, decreased lung volumes. No focal consolidation, or pneumothorax. Possible tiny left pleu ral effusion with associated atelectasis. Mild pulmonary vascular con gestion. New cardiomegaly. Aortic calcification. Surgical clips right uppe r quadrant. Narrative 04/20/2019 8:37 AM PRIVATE DUTY NURSE EXAM: ??DX CHEST AP OR PA AND [...] quadrant. Marla Pham IMG DIAGNOSTIC IMAGING PROCE [facility] ECG 12 Lead (04/20/2019 6:42 AM PRIVATE DUTY NURSE) [facility] Method Time Signature Ventricular 75 BPM MUSE Rate ECG/Min MA Interval 186 ms MUSE QRSD Interval 102 ms MUSE QT Interval 388 ms MUSE QTC Interval 433 ms MUSE P Milton 72 degrees MUSE R Milton 97 degrees MUSE T Wave [place] -127 degrees MUSE CODED Atrial MUSE DIAGNOSIS fibrillation Specimen Anatomical Collection Method Collection Time Receive d Time (Source) Location / / Volume Laterality 04/20/2019 6:42 AM 0 8:54 PRIVATE DUTY NURSE AM PRIVATE DUTY NURSE Impressions MUSE - 04/20/2019 8:54 AM PRIVATE DUTY NURSE Normal sinus rhythm Rightward axis ST and [...] Marla Pham ECG ORDERABLES Performing Organization Address City/[facility]/ZIP Code Phon e Number MUSE MUSE NA (ABNORMAL) Prothrombin Time (PT) (04/20/2019 6:34 AM PRIVATE DUTY NURSE) [facility] Method Time Signature Prothrombin 23.1 (H) 9.4 - 12.5 04/20/2019 DTL Time, P sec 7:26 AM PRIVATE DUTY NURSE INR 2.1 0.9 - 1.1 04/20/2019 DTL 7:26 AM PRIVATE DUTY NURSE Comment: ----ADDITIONAL INFORMATION---- Standard intensity warfarin therapeutic range: 2.0 to 3.0 ?? High intensity warfarin therapeutic rang e: 2.5 to 3.5 Specimen Anatomical Collection Method Collection Time Receive d Time (Source) Location / / Volume Laterality Blood (Blood, 04/20/2019 6:34 AM 04/20/19 20 7:04 Venous) PRIVATE DUTY NURSE AM PRIVATE DUTY NURSE Aria Houser APRN C.NEdilmaP., M.S.N. LAB BLOOD ADD-ON Performing Organization Address City/State/ZIP Code Phon e Number [facility] LABORATORIES - [address] [place] [address] [address] [facility] [place] [address] Laboratories-[facility] 200 [facility] (ABNORMAL) CBC with Differential, Blood (04/20/2019 6:34 AM PRIVATE DUTY NURSE) [facility] Method Time Signature Hemoglobin 12.7 11.6 - 04/20/2019 DTL 15.0 g/dL 7:17 AM PRIVATE DUTY NURSE Hematocrit 39.4 35.5 - 04/20/2019 DTL 44.9 % 7:17 AM PRIVATE DUTY NURSE Erythrocytes 4.14 3.92 - 04/20/2019 DTL 5.13 7:17 AM PRIVATE DUTY NURSE x10(12)/L MCV 95.2 78.2 - 04/20/2019 DTL 97.9 fL 7:17 AM PRIVATE DUTY NURSE RBC Distrib Width 12.4 12.2 - 04/20/2019 DTL 16.1 % 7:17 AM PRIVATE DUTY NURSE Platelet Count 362 157 - 371 04/20/2019 DTL x10(9)/L 7:17 AM PRIVATE DUTY NURSE Leukocytes 12.0 (H) 3.4 - 9.6 04/20/2019 DTL x10(9)/L 7:17 AM PRIVATE DUTY NURSE Neutrophils 8.06 (H) 1.56 - 04/20/2019 DTL 6.45 7:17 AM PRIVATE DUTY NURSE x10(9)/L Lymphocytes 2.74 0.95 - 04/20/2019 DTL 3.07 7:17 AM PRIVATE DUTY NURSE x10(9)/L Monocytes 0.93 (H) 0.26 - 04/20/2019 DTL 0.81 7:17 AM PRIVATE DUTY NURSE x10(9)/L Eosinophils 0.17 0.03 - 04/20/2019 DTL 0.48 7:17 AM PRIVATE DUTY NURSE x10(9)/L Basophils 0.10 (H) 0.01 - 04/20/2019 DTL 0.08 7:17 AM PRIVATE DUTY NURSE x10(9)/L Specimen Anatomical Collection Method Collection Time Receive d Time (Source) Location / / Volume Laterality Blood (Blood, 04/20/2019 6:34 AM 04/20/19 20 7:04 Venous) PRIVATE DUTY NURSE AM PRIVATE DUTY NURSE Marla Pham LAB BLOOD ADD-ON Performing Organization Address City/State/ZIP Code Phon e Number [facility]IES - [address] [place], [place] [address] [facility] [place] [address] [facility] 200 [facility] Creatinine with Estimated GFR (04/20/2019 6:34 AM PRIVATE DUTY NURSE) P athologist Signature Creatinine 0.89 0.59 - 04/20/2019 DTL 1.04 mg/dL 8:15 AM PRIVATE DUTY NURSE eGFR-Non 70 >=60 04/20/2019 DTL Black/ mL/min/BSA 8:15 AM PRIVATE DUTY NURSE [place] Comment: ----ADDITIONAL INFORMATION---- Estimated GFR calculated using the 2009 CKD_EPI creatinine equation. eGFR-Black/ 80 >=60 mL/min/BSA 2019 8:15 AM PRIVATE DUTY NURSE DTL Comment: ----ADDITIONAL INFORMATION---- Estimated GFR calculated using the 2009 CKD_EPI creatinine equation. Specimen Anatomical Collection Method Collection Time Receive d Time (Source) Location / / Volume Laterality Blood (Blood, 04/20/2019 6:34 AM 04/20/19 20 7:04 Venous) PRIVATE DUTY NURSE AM PRIVATE DUTY NURSE Marla RendonSEdilma LAB BLOOD ADD-ON Performing Organization Address City/State/ZIP Code Phon e Number [facility] - [address] [place], [place] [address] [facility] [place], [place] [id number] [place] [address] BUN (Blood Urea Nitrogen) (04/20/2019 6:34 AM PRIVATE DUTY NURSE) P athologist Signature BUN (Blood Urea 13 6 - 21 04/20/2019 DTL Nitrogen), S mg/dL 8:15 AM PRIVATE DUTY NURSE Specimen Anatomical Collection Method Collection Time Receive d Time (Source) Location / / Volume Laterality Blood (Blood, 04/20/2019 6:34 AM 04/20/19 20 7:04 Venous) PRIVATE DUTY NURSE AM PRIVATE DUTY NURSE Marla RendonSEdilma LAB BLOOD ADD-ON Performing Organization Address City/State/ZIP Code Phon e Number [facility] - [address] [place], [place] [address] [facility] [place], [place] [id number] [place] [address] Potassium (04/20/2019 6:34 AM PRIVATE DUTY NURSE) athologist Signature Potassium, S 4.7 3.6 - 5.2 04/20/2019 DTL mmol/L 8:15 AM PRIVATE DUTY NURSE Specimen Anatomical Collection Method Collection Time Receive d Time (Source) Location / / Volume Laterality Blood (Blood, 04/20/2019 6:34 AM 04/20/19 20 7:04 Venous) PRIVATE DUTY NURSE AM PRIVATE DUTY NURSE Marla RendonSEdilma LAB BLOOD ADD-ON Performing Organization Address City/State/ZIP Code Phon e Number [facility] LAB[facility]ATORIES - [address] [place], [place] [address] [facility] [place] [address] [facility] [address] Magnesium (04/20/2019 6:34 AM PRIVATE DUTY NURSE) P athologist Signature Magnesium, S 2.1 1.7 - 2.3 04/20/2019 DTL mg/dL 8:15 AM PRIVATE DUTY NURSE Specimen Anatomical Collection Method Collection Time Receive d Time (Source) Location / / Volume Laterality Blood (Blood, 04/20/2019 6:34 AM 04/20/19 20 7:04 Venous) PRIVATE DUTY NURSE AM PRIVATE DUTY NURSE Marla Pham LAB BLOOD ADD-ON Performing Organization Address City/[facility] Phon e Number [facility] LABORATORIES - [address] (ABNORMAL) Glucose, POCT (04/19/2019 4:12 PM PRIVATE DUTY NURSE) Analysis Performed At Patho logist Time Signature Glucose, POCT, 230 (H) 70 - 140 04/19/2019 PCLX B mg/dL 4:19 PM PRIVATE DUTY NURSE Last Intake 3-4 hours 04/19/2019 PCLX 4:19 PM PRIVATE DUTY NURSE Specimen Anatomical Collection Method Collection Time Receive d Time (Source) Location / / Volume Laterality Blood 04/19/2019 4:12 PM 0 4:19 PRIVATE DUTY NURSE PM PRIVATE DUTY NURSE Unknown Provider LAB POCT ORDERABLES-MANUAL Performing Organization Address City/[facility] Phon e Number POC [facility] SERVICES [address] [place] [address] [place] [address] [facility] [address] (ABNORMAL) Magnesium (04/19/2019 3:42 PM PRIVATE DUTY NURSE) P athologist Signature Magnesium, S 1.5 (L) 1.7 - 2.3 04/19/2019 DTL mg/dL 5:03 PM PRIVATE DUTY NURSE Specimen Anatomical Collection Method Collection Time Receive d Time (Source) Location / / Volume Laterality Blood (Blood, 04/19/2019 3:42 PM 04/19/19 20 4:28 Venous) PRIVATE DUTY NURSE PM PRIVATE DUTY NURSE Ana Soto APRN.NEdilmaP., M.S.N. LAB BLOOD ADD-ON Performing Organization Address City/State/ZIP Code Phon e Number [facility] LABORATORIES - [address] [place], [place] [address] [place] [id number] [facility] [address] Potassium (04/19/2019 3:42 PM PRIVATE DUTY NURSE) P athologist Signature Potassium, P 3.8 3.6 - 5.2 04/19/2019 STMA mmol/L 4:01 PM PRIVATE DUTY NURSE Specimen Anatomical Collection Method Collection Time Receive d Time (Source) Location / / Volume Laterality Blood (Blood, 04/19/2019 3:42 PM 04/19/19 20 3:49 Venous) PRIVATE DUTY NURSE PM PRIVATE DUTY NURSE Aria Houser APRN, C.N.P., M.S.N. LAB BLOOD ADD-ON Performing Organization Address [facility] Phon e Number [facility] LABORATORIES - [address] [address] Laboratories-[address] (ABNORMAL) Prothrombin Time (PT) (04/19/2019 2:53 PM PRIVATE DUTY NURSE) Patholo gist Method Time Signature Prothrombin 29.8 (H) 9.4 - 12.5 04/19/2019 STMA Time, P sec 3:14 PM PRIVATE DUTY NURSE INR 2.7 0.9 - 1.1 04/19/2019 STMA 3:14 PM PRIVATE DUTY NURSE Comment: ----ADDITIONAL INFORMATION---- Standard intensity warfarin therapeutic range: 2.0 to 3.0 ?? High intensity warfarin therapeutic rang e: 2.5 to 3.5 Specimen Anatomical Collection Method Collection Time Receive d Time (Source) Location / / Volume Laterality Blood (Blood, 04/19/2019 2:53 PM 04/19/19 20 3:02 Venous) PRIVATE DUTY NURSE PM PRIVATE DUTY NURSE Tucker Rutherford P.A.-C. LAB BLOOD ADD-ON Performing Organization Address City/[facility] Phon e Number [facility] LABORATORIES - [address] [place], [place] [address] [place] [address] [facility]-[address] ABLATION PVI, CARTO, ULTRASOUND GUIDANCE FOR VASCULAR ACCESS, INTRACARDIAC ECHOCARDIOGRAM, ABLATION - WACA, ABLATION - ATRIAL FLUTTER - RIGHT (04/19/2019 2:26 PM PRIVATE DUTY NURSE) Anatomical Region Laterality Modality X-Ray Angiography Specimen (Source) Anatomical Collection Method Collection Time Re ceived Time Location / / Volume Laterality 04/19/2019 10:13 AM PRIVATE DUTY NURSE Narrative 04/20/2019 2:47 PM PRIVATE DUTY NURSE For the complete report, see the [employer] Documents. PROCEDURE TYPES 1. ??ABLATION - PVI [...] 28.37 For the complete report, see the [email or web address] Documents. Procedure Note Marla Yeager M.B.B.SEdilma - 04/20/2019F ormatting of this note might be different from the original. For the complete report, see the Order[employer] Documents. PROCEDURE TYPES 1. ABLATION - PVI [...] ABG and Vondates, POCT (04/19/2019 2:10 PM PRIVATE DUTY NURSE) P athologist Signature [facility] 04/19/2019 PCLX POCT 2:16 PM PRIVATE DUTY NURSE Comment: ----ADDITIONAL INFORMATION---- Performed at the Point of Care pH, POCT 7.42 7.35 - 7.45 04/19/2019 2:16 PM PRIVATE DUTY NURSE PCLX Comment: ----ADDITIONAL INFORMATION---- Performed at the Point of Care pCO2, POCT 44 32 - 45 mm Hg 04/19/2019 2:16 PM PRIVATE DUTY NURSE PC LX Comment: ----ADDITIONAL INFORMATION---- Performed at the Point of Care pO2, POCT 455 (H) 83 - 108 mm Hg 04/19/2019 2:16 PM PRIVATE DUTY NURSE PC LX Comment: ----ADDITIONAL INFORMATION---- Performed at the Point of Care Base, POCT 4 (H) -2 - 3 mmol/L 04/19/2019 2:16 PM PRIVATE DUTY NURSE PC LX Comment: ----ADDITIONAL INFORMATION---- Performed at the Point of Care HCO3, POCT 29 (H) 22 - 26 mmol/L 04/19/2019 2:16 PM PRIVATE DUTY NURSE P CLX Comment: ----ADDITIONAL INFORMATION---- Performed at the Point of Care Sodium, POCT, B 137 135 - 145 mmol/L 04/19/2019 2:16 P M PRIVATE DUTY NURSE PCLX Comment: ----ADDITIONAL INFORMATION---- Performed at the Point of Care Potassium, POCT, B 3.0 (L) 3.6 - 5.2 mmol/L 04/19/2019 2:1 6 PM PRIVATE DUTY NURSE PCLX Comment: ----ADDITIONAL INFORMATION---- Performed at the Point of Care Hematocrit, POCT, B 36.0 35.5 - 44.9 % 04/19/2019 2:16 PM PRIVATE DUTY NURSE PCLX Comment: ----ADDITIONAL INFORMATION---- Performed at the Point of Care Specimen Anatomical Collection Method Collection Time Receive d Time (Source) Location / / Volume Laterality Blood 04/19/2019 2:10 PM 0 2:16 PRIVATE DUTY NURSE PM PRIVATE DUTY NURSE Unknown Provider LAB POCT ORDERABLES - DEVICE Performing Organization Address [facility] Phon e Number POC [facility] LAB SERVICES [address] [place] [address] [place] [address] [place] POC [address] (ABNORMAL) ACT (Activated Clotting Time), POCT (04/19/2019 2:03 PM PRIVATE DUTY NURSE) athologist Signature Activated 167 (H) 84 - 139 04/19/2019 PCSM Clotting Time, sec 2:16 PM PRIVATE DUTY NURSE POCT Specimen Anatomical Collection Method Collection Time Receive d Time (Source) Location / / Volume Laterality Blood 04/19/2019 2:03 PM 0 2:16 PRIVATE DUTY NURSE PM PRIVATE DUTY NURSE Unknown Provider LAB POCT ORDERABLES - DEVICE Performing Organization Address [facility] Phon e Number POC [facility] INPATIENT [address] [place], [place] [address] [place] [address] [place] POC [address] (ABNORMAL) Glucose, POCT (04/19/2019 2:02 PM PRIVATE DUTY NURSE) athologist Signature Glucose, POCT, 193 (H) 70 - 140 04/19/2019 PCLX B mg/dL 2:04 PM PRIVATE DUTY NURSE Specimen Anatomical Collection Method Collection Time Receive d Time (Source) Location / / Volume Laterality Blood 04/19/2019 2:02 PM 0 2:04 PRIVATE DUTY NURSE PM PRIVATE DUTY NURSE Unknown Provider LAB POCT ORDERABLES-MANUAL Performing Organization Address City/[facility] Phon e Number POC [facility] LAB SERVICES [address] [place] [address] [place] [address] [place] POC [address] (ABNORMAL) ACT (Activated Clotting Time), POCT (04/19/2019 1:19 PM PRIVATE DUTY NURSE) athologist [facility] Activated 300 (H) 84 - 139 04/19/2019 PCSM Clotting Time, sec 1:30 PM PRIVATE DUTY NURSE POCT Specimen Anatomical Collection Method Collection Time Receive d Time (Source) Location / / Volume Laterality Blood 04/19/2019 1:19 PM 0 1:30 PRIVATE DUTY NURSE PM PRIVATE DUTY NURSE Unknown Provider LAB POCT ORDERABLES - DEVICE Performing Organization Address [facility] Phon e Number POC [facility] INPATIENT [address] [place], [place] [address] [place] [address] [place] POC [address] [place] [address] (ABNORMAL) ABG and Lytes, POCT (04/19/2019 12:58 PM PRIVATE DUTY NURSE) athologist [facility] Sample Site, [place] 04/19/2019 PCLX POCT 1:04 PM PRIVATE DUTY NURSE Comment: ----ADDITIONAL INFORMATION---- Performed at the Point of Care pH, POCT 7.41 7.35 - 7.45 04/19/2019 1:04 PM PRIVATE DUTY NURSE PCLX Comment: ----ADDITIONAL INFORMATION---- Performed at the Point of Care pCO2, POCT 43 32 - 45 mm Hg 04/19/2019 1:04 PM PRIVATE DUTY NURSE PC LX Comment: ----ADDITIONAL INFORMATION---- Performed at the Point of Care pO2, POCT 160 (H) 83 - 108 mm Hg 04/19/2019 1:04 PM PRIVATE DUTY NURSE PC LX Comment: ----ADDITIONAL INFORMATION---- Performed at the Point of Care Base, POCT 3 -2 - 3 mmol/L 04/19/2019 1:04 PM PRIVATE DUTY NURSE PC LX Comment: ----ADDITIONAL INFORMATION---- Performed at the Point of Care HCO3, POCT 27 (H) 22 - 26 mmol/L 04/19/2019 1:04 PM PRIVATE DUTY NURSE P CLX Comment: ----ADDITIONAL INFORMATION---- Performed at the Point of Care Sodium, POCT, B 137 135 - 145 mmol/L 04/19/2019 1:04 P M PRIVATE DUTY NURSE PCLX Comment: ----ADDITIONAL INFORMATION---- Performed at the Point of Care Potassium, POCT, B 3.3 (L) 3.6 - 5.2 mmol/L 04/19/2019 1:0 4 PM PRIVATE DUTY NURSE PCLX Comment: ----ADDITIONAL INFORMATION---- Performed at the Point of Care Hematocrit, POCT, B 39.0 35.5 - 44.9 % 04/19/2019 1:04 PM PRIVATE DUTY NURSE PCLX Comment: ----ADDITIONAL INFORMATION---- Performed at the Point of Care Specimen Anatomical Collection Method Collection Time Receive d Time (Source) Location / / Volume Laterality Blood 04/19/2019 12:58 04/19/2019 1:04 PM PRIVATE DUTY NURSE PM PRIVATE DUTY NURSE Unknown Provider LAB POCT ORDERABLES - DEVICE Performing Organization Address [facility] Phon e Number POC [facility] LAB SERVICES [address] [place] [address] PCL[place], [place] [phone] [place] [address] POC 200 [facility] (ABNORMAL) ACT (Activated Clotting Time), POCT (04/19/2019 12:48 PM PRIVATE DUTY NURSE) athologist Signature Activated 369 (H) 84 - 139 04/19/2019 PCSM Clotting Time, sec 1:04 PM PRIVATE DUTY NURSE POCT Specimen Anatomical Collection Method Collection Time Receive d Time (Source) Location / / Volume Laterality Blood 04/19/2019 12:48 04/19/2019 1:04 PM PRIVATE DUTY NURSE PM PRIVATE DUTY NURSE Unknown Provider LAB POCT ORDERABLES - DEVICE Performing Organization Address [facility] Phon e Number POC [facility] INPATIENT [address] [place], [place] [address] [place] [address] [place] POC [address] [place] [address] (ABNORMAL) Glucose, POCT (04/19/2019 12:47 PM PRIVATE DUTY NURSE) athologist Signature Glucose, POCT, 199 (H) 70 - 140 04/19/2019 PCLX B mg/dL 12:49 PM PRIVATE DUTY NURSE Site [facility] 04/19/2019 PCLX 12:49 PM PRIVATE DUTY NURSE Specimen Anatomical Collection Method Collection Time Receive d Time (Source) Location / / Volume Laterality Blood 04/19/2019 12:47 04/19/2019 PM PRIVATE DUTY NURSE 12:49 PM PRIVATE DUTY NURSE Unknown Provider LAB POCT ORDERABLES-MANUAL Performing Organization Address City/State/ZIP Code Phon e Number POC [facility] LAB SERVICES [address] [place] [address] [place] [address] [place] POC [address] (ABNORMAL) ACT (Activated Clotting Time), POCT (04/19/2019 12:19 PM PRIVATE DUTY NURSE) P athologist Signature Activated 341 (H) 84 - 139 04/19/2019 PCSM Clotting Time, sec 12:30 PM PRIVATE DUTY NURSE POCT Specimen Anatomical Collection Method Collection Time Receive d Time (Source) Location / / Volume Laterality Blood 04/19/2019 12:19 04/19/2019 PM PRIVATE DUTY NURSE 12:30 PM PRIVATE DUTY NURSE Unknown Provider LAB POCT ORDERABLES - DEVICE Performing Organization Address [facility] Phon e Number POC [facility]ST [facility] INPATIENT [address] [place], [place] [address] [place] [address] [place] POC [address] (ABNORMAL) Prothrombin Time (PT) (04/19/2019 12:16 PM PRIVATE DUTY NURSE) [facility] Method Time Signature Prothrombin 95.8 (H) 9.4 - 12.5 04/19/2019 STMA Time, P sec 12:49 PM PRIVATE DUTY NURSE INR 8.3 (CH) 0.9 - 1.1 04/19/2019 STMA 12:49 PM PRIVATE DUTY NURSE Comment: ----ADDITIONAL INFORMATION---- Standard intensity warfarin therapeutic range: 2.0 to 3.0 ?? High intensity warfarin therapeutic rang e: 2.5 to 3.5 Specimen Anatomical Collection Method Collection Time Receive d Time (Source) Location / / Volume Laterality Blood (Blood, 04/19/2019 12:16 04/19/2019 Venous) PM PRIVATE DUTY NURSE 12:23 PM PRIVATE DUTY NURSE Aria Houser APRN C.N.P., M.S.N. LAB BLOOD ADD-ON Performing Organization Address City/State/ZIP Code Phon e Number [facility] LABORATORIES - [address] [place], [place] [address] [facility] [place] [address] Laboratories-[place] [address] (ABNORMAL) ACT (Activated Clotting Time), POCT (04/19/2019 11:55 AM PRIVATE DUTY NURSE) P athologist Signature Activated 296 (H) 84 - 139 04/19/2019 PCSM Clotting Time, sec 12:06 PM PRIVATE DUTY NURSE POCT Specimen Anatomical Collection Method Collection Time Receive d Time (Source) Location / / Volume Laterality Blood 04/19/2019 11:55 04/19/2019 AM PRIVATE DUTY NURSE 12:06 PM PRIVATE DUTY NURSE Unknown Provider LAB POCT ORDERABLES - DEVICE Performing Organization Address City/[facility] Phon e Number POC [facility] INPATIENT [address] [place], [place] [address] LABS [place], [place] [id number] [place] [address] (ABNORMAL) ACT (Activated Clotting Time), POCT (04/19/2019 11:27 AM PRIVATE DUTY NURSE) P athologist Signature Activated 353 (H) 84 - 139 04/19/2019 PCSM Clotting Time, sec 11:38 AM PRIVATE DUTY NURSE POCT Specimen Anatomical Collection Method Collection Time Receive d Time (Source) Location / / Volume Laterality Blood 04/19/2019 11:27 04/19/2019 AM PRIVATE DUTY NURSE 11:39 AM PRIVATE DUTY NURSE Unknown Provider LAB POCT ORDERABLES - DEVICE Performing Organization Address [facility] Phon e Number POC [facility] INPATIENT [address] [place], [place] [address] LABS [place], [place] [id number] [place] [address] (ABNORMAL) ACT (Activated Clotting Time), POCT (04/19/2019 11:05 AM PRIVATE DUTY NURSE) P athologist Signature Activated 296 (H) 84 - 139 04/19/2019 PCSM Clotting Time, sec 11:17 AM PRIVATE DUTY NURSE POCT Specimen Anatomical Collection Method Collection Time Receive d Time (Source) Location / / Volume Laterality Blood 04/19/2019 11:05 04/19/2019 AM PRIVATE DUTY NURSE 11:17 AM PRIVATE DUTY NURSE Unknown Provider LAB POCT ORDERABLES - DEVICE Performing Organization Address City/[facility] Phon e Number POC [facility] INPATIENT [address] [place], [place] [address] [place] [address] [place] POC [address] (ABNORMAL) Basic Metabolic Panel (04/19/2019 10:46 AM PRIVATE DUTY NURSE) P athologist Signature Potassium, P 3.6 3.6 - 5.2 04/19/2019 [facility] mmol/L 11:18 AM PRIVATE DUTY NURSE Sodium, P 139 135 - 145 04/19/2019 [facility] mmol/L 11:18 AM PRIVATE DUTY NURSE Chloride, P 100 98 - 107 04/19/2019 [facility] mmol/L 11:18 AM PRIVATE DUTY NURSE Bicarbonate, P 25 22 - 29 04/19/2019 [facility] mmol/L 11:18 AM PRIVATE DUTY NURSE Anion Gap, P 14 7 - 15 04/19/2019 [facility] 11:18 AM PRIVATE DUTY NURSE BUN (Blood Urea 12 6 - 21 04/19/2019 [facility] Nitrogen), P mg/dL 11:18 AM PRIVATE DUTY NURSE Creatinine 0.76 0.59 - 04/19/2019 [facility] 1.04 mg/dL 11:18 AM PRIVATE DUTY NURSE eGFR-Black/Afric >90 >=60 04/19/2019 [facility] an Cook Islander mL/min/BSA 11:18 AM PRIVATE DUTY NURSE Comment: ----ADDITIONAL INFORMATION---- Estimated GFR calculated using the 2009 CKD_EPI creatinine equation. eGFR Non-Black/ 84 >=60 mL/min/BSA 04/19/2019 11:18 AM PRIVATE DUTY NURSE [facility] Comment: ----ADDITIONAL INFORMATION---- Estimated GFR calculated using the 2009 CKD_EPI creatinine equation. Calcium, Total, P 8.8 8.8 - 10.2 mg/dL 04/19/2019 11:1 8 AM PRIVATE DUTY NURSE [facility] Glucose, P 210 (H) 70 - 140 mg/dL 04/19/2019 11:18 AM PRIVATE DUTY NURSE [facility] Specimen Anatomical Collection Method Collection Time Receive d Time (Source) Location / / Volume Laterality Blood (Blood, 04/19/2019 10:46 04/19/2019 Venous) AM PRIVATE DUTY NURSE 11:01 AM PRIVATE DUTY NURSE Renetta Greer APRN, C.N.P., D.N.P. LAB BLOOD ADD-ON Performing Organization Address City/State/ZIP Code Phon e Number [facility] - [address] [place], [place] [address] [place] [address] Laboratories-[facility] [address] (ABNORMAL) CBC with Differential, Blood (04/19/2019 10:46 AM PRIVATE DUTY NURSE) [facility] Method Time Signature Hemoglobin 13.6 11.6 - 04/19/2019 [facility] 15.0 g/dL 11:10 AM PRIVATE DUTY NURSE Hematocrit 40.1 35.5 - 04/19/2019 [facility] 44.9 % 11:10 AM PRIVATE DUTY NURSE Erythrocytes 4.42 3.92 - 04/19/2019 [facility] 5.13 11:10 AM PRIVATE DUTY NURSE x10(12)/L MCV 90.7 78.2 - 04/19/2019 [facility] 97.9 fL 11:10 AM PRIVATE DUTY NURSE RBC Distrib Width 11.9 (L) 12.2 - 04/19/2019 [facility] 16.1 % 11:10 AM PRIVATE DUTY NURSE Platelet Count 359 157 - 371 04/19/2019 [facility] x10(9)/L 11:10 AM PRIVATE DUTY NURSE Leukocytes 9.0 3.4 - 9.6 04/19/2019 [facility] x10(9)/L 11:10 AM PRIVATE DUTY NURSE Neutrophils 5.07 1.56 - 04/19/2019 [facility] 6.45 11:10 AM PRIVATE DUTY NURSE x10(9)/L Lymphocytes 2.74 0.95 - 04/19/2019 [facility] 3.07 11:10 AM PRIVATE DUTY NURSE x10(9)/L Monocytes 0.65 0.26 - 04/19/2019 [facility] 0.81 11:10 AM PRIVATE DUTY NURSE x10(9)/L Eosinophils 0.40 0.03 - 04/19/2019 [facility] 0.48 11:10 AM PRIVATE DUTY NURSE x10(9)/L Basophils 0.14 (H) 0.01 - 04/19/2019 [facility] 0.08 11:10 AM PRIVATE DUTY NURSE x10(9)/L Specimen Anatomical Collection Method Collection Time Receive d Time (Source) Location / / Volume Laterality Blood (Blood, 04/19/2019 10:46 04/19/2019 Venous) AM PRIVATE DUTY NURSE 11:01 AM PRIVATE DUTY NURSE Renetta Greer APRN, C.N.P., D.N.P. LAB BLOOD ADD-ON Performing Organization Address City/State/ZIP Code Phon e Number [facility] - [address] [place], [place] [address] [facility] [place] [address] [facility] [address] (ABNORMAL) Prothrombin Time (PT) (04/19/2019 10:46 AM PRIVATE DUTY NURSE) [facility] Method Time Signature Prothrombin 58.0 (H) 9.4 - 12.5 04/19/2019 [facility] Time, P sec 11:14 AM PRIVATE DUTY NURSE INR 5.1 (CH) 0.9 - 1.1 04/19/2019 [facility] 11:14 AM PRIVATE DUTY NURSE Comment: ----ADDITIONAL INFORMATION---- Standard intensity warfarin therapeutic range: 2.0 to 3.0 ?? High intensity warfarin therapeutic rang e: 2.5 to 3.5 Specimen Anatomical Collection Method Collection Time Receive d Time (Source) Location / / Volume Laterality Blood (Blood, 04/19/2019 10:46 04/19/2019 Venous) AM PRIVATE DUTY NURSE 11:01 AM PRIVATE DUTY NURSE Ana Pickett APRN.N.P., D.N.P. LAB BLOOD ADD-ON Performing Organization Address City/[facility] Phon e Number [facility] - [address] Type and Screen (with reflex Antibody ID) (04/19/2019 10:45 AM PRIVATE DUTY NURSE) [facility] Method Time Signature ABORh A Pos Not 04/19/2019 STRM applicable 11:25 AM PRIVATE DUTY NURSE Antibody Negative Negative 04/19/2019 STRM Screen 11:40 AM PRIVATE DUTY NURSE Type & Screen 04/22/2019 04/19/2019 STRM Expiration 23:59 11:25 AM PRIVATE DUTY NURSE Testing Krista DEFAULT 04/19/2019 STRM Location 11:00 AM PRIVATE DUTY NURSE Specimen Anatomical Collection Method Collection Time Receive d Time (Source) Location / / Volume Laterality Blood (Arm, 04/19/2019 10:45 04/19/2019 Right) AM PRIVATE DUTY NURSE 11:00 AM PRIVATE DUTY NURSE Renetta Greer APRN, Ana.N.P., D.N.P. LAB BLOOD BANK T EST ORDERABLES Performing Organization Address [facility] Phon e Number [facility] - [address] (ABNORMAL) Glucose, POCT (04/19/2019 10:44 AM PRIVATE DUTY NURSE) P athologist Signature Glucose, POCT, 206 (H) 70 - 140 04/19/2019 PCLX B mg/dL 10:55 AM PRIVATE DUTY NURSE Site ARTLINE 04/19/2019 PCLX 10:55 AM PRIVATE DUTY NURSE Specimen Anatomical Collection Method Collection Time Receive d Time (Source) Location / / Volume Laterality Blood 04/19/2019 10:44 04/19/2019 AM PRIVATE DUTY NURSE 10:55 AM PRIVATE DUTY NURSE Unknown Provider LAB POCT ORDERABLES-MANUAL Performing Organization Address [facility] Phon e Number POC [facility] [address] [place] [address] [place] [address] [place] P[facility] 200 [facility] (ABNORMAL) ACT (Activated Clotting Time), POCT (04/19/2019 10:41 AM PRIVATE DUTY NURSE) P athologist Signature Activated 341 (H) 84 - 139 04/19/2019 PCSM Clotting Time, sec 10:53 AM PRIVATE DUTY NURSE POCT Specimen Anatomical Collection Method Collection Time Receive d Time (Source) Location / / Volume Laterality Blood 04/19/2019 10:41 04/19/2019 AM PRIVATE DUTY NURSE 10:53 AM PRIVATE DUTY NURSE Unknown Provider LAB POCT ORDERABLES - DEVICE Performing Organization Address [facility] Phon e Number POC [facility] INPATIENT [address] [place], [place] [address] [place] [address] [place] POC [address] [place] [address] Echo - Intraprocedural Images Only (04/19/2019 8:52 AM PRIVATE DUTY NURSE) Specimen (Source) Anatomical Location Collection Method / Collectio n Time Received Time / Laterality Volume Narrative CV EIMS - 04/21/2019 8:52 AM PRIVATE DUTY NURSE Echocardiographic images obtained during EP. See EP report for findings. Marla Pham CV ECHO PROCEDURES Performing Organization Address [facility] Phon e Number CV EIMS NA INR, POCT (04/19/2019 8:37 AM PRIVATE DUTY NURSE) P athologist Signature INR, POCT, B 2.4 04/19/2019 PCED 11:59 AM PRIVATE DUTY NURSE Comment: ----ADDITIONAL INFORMATION---- Standard intensity warfarin therapeutic range: 2.0 to 3.0 ?? High intensity warfarin therapeutic rang e: 2.5 to 3.5 Specimen Anatomical Collection Method Collection Time Receive d Time (Source) Location / / Volume Laterality 04/19/2019 8:37 AM 0 PRIVATE DUTY NURSE 11:59 AM PRIVATE DUTY NURSE Unknown Provider LAB POCT ORDERABLES - DEVICE Performing Organization Address City/[facility]/ZIP Code Phon e Number POC [facility] [address] [place] [address] [place]PATIENT [place] [address] [facility] 200 [facility] (ABNORMAL) Glucose, POCT (04/19/2019 8:37 AM PRIVATE DUTY NURSE) P athologist Signature Glucose, POCT, 224 (H) 70 - 140 04/19/2019 PCLX B mg/dL 8:41 AM PRIVATE DUTY NURSE Specimen Anatomical Collection Method Collection Time Receive d Time (Source) Location / / Volume Laterality Blood 04/19/2019 8:37 AM 0 8:41 PRIVATE DUTY NURSE AM PRIVATE DUTY NURSE Unknown Provider LAB POCT ORDERABLES-MANUAL Performing Organization Address [facility] Phon e Number POC [facility] [address] [place] [address] [place] [address] [facility] 200 [facility] documented in this encounter Visit Diagnoses Diagnosis [...] tablet 1,000 mg Given 04/21/2019 9:55 AM PRIVATE DUTY NURSE 1,000 mg (TYLENOL) 1,000 mg, oral, Every 6 hours PRN, mild pain or score 1-3 of 10, Starting on Fri04/19/19 at 1502, Postprocedure (CV) benzocaine-menthol 15-3.6 mg per lozenge 1 Given 04/21 9:55 AM PRIVATE DUTY NURSE 1 lozenge lozenge (CEPACOL) 1 lozenge, oral, Every 4 hours PRN, sore throat, Starting on Fri04/19/19 at 0934, Postprocedure (CV) Given 04/21/2019 4:53 AM PRIVATE DUTY NURSE 1 lozenge Given 04/20/2019 9:14 PM PRIVATE DUTY NURSE 1 lozenge clotrimazole-betamethasone 1-0.05 % Given 04/21/2019 8:36 AM PRIVATE DUTY NURSE 1 application cream 1 application (LOTRISONE) 1 application, topical, 2 times daily, First dose on Fri04/19/19 at 2100, Postprocedure (CV) Given 04/20/2019 8:20 PM PRIVATE DUTY NURSE 1 application Given 04/20/2019 8:49 AM PRIVATE DUTY NURSE 1 application docusate sodium capsule 100 mg (COLACE) Given 04/21/2019 10:29 AM PRIVATE DUTY NURSE 100 mg 100 mg, oral, 2 times daily PRN, constipation, Starting on Fri04/19/19 at 1502, Postprocedure (CV), Do NOT crush or chew. DULoxetine DR capsule 30 mg (CYMBALTA) Given 04/21/2019 8:38 AM PRIVATE DUTY NURSE 30 mg 30 mg, oral, 2 times daily, First dose on Fri04/19/19 at 2100, Postprocedure (CV), See tube feeding guidelines for tube feeding administration instructions. Given 04/20/2019 8:13 PM PRIVATE DUTY NURSE 30 mg Given 04/20/2019 8:46 AM PRIVATE DUTY NURSE 30 mg ferrous sulfate tablet 65 mg of iron Given 04/21/2019 8:37 AM PRIVATE DUTY NURSE 65 mg of iron 65 mg of iron, oral, Daily, First dose on Fri04/20/19 at 0900, Postprocedure (CV) Given 04/20/2019 8:45 AM PRIVATE DUTY NURSE 65 mg of iron flecainide tablet 100 mg (TAMBOCOR) Given 04/21/2019 8:38 AM PRIVATE DUTY NURSE 100 mg 100 mg, oral, 2 times daily, First dose on Fri04/19/19 at 2100 Given 04/20/2019 8:13 PM PRIVATE DUTY NURSE 100 mg Given 04/20/2019 8:45 AM PRIVATE DUTY NURSE 100 mg fluticasone furoate 100 mcg/actuation inhaler Given 8:36 AM PRIVATE DUTY NURSE 1 puff 1 puff (ARNUITY ELLIPTA) 1 puff, inhalation, Daily, First dose on Fri04/20/19 at 0900, Postprocedure (CV), Rinse mouth with water after use to reduce aftertaste and incidence of candidiasis. Do not swallow. Given 04/20/2019 8:48 AM PRIVATE DUTY NURSE 1 puff furosemide injection 20 mg (LASIX) Given 04/20/2019 9:13 AM PRIVATE DUTY NURSE 20 mg 20 mg, intravenous, Once, On Fri04/20/19 at 0700, For 1 dose, Adults: Doses less than 120 mg: IV push over 20 mg/minute. Doses 120 mg or greater: IVPB at 4 mg/minute. Peds/Neonates: Doses less than 120 mg over 0.5 mg/kg/minute. Doses 120 mg or greater: IVPB at 4 mg/minute. furosemide injection 20 mg (LASIX) Given 04/20/2019 1:25 PM PRIVATE DUTY NURSE 20 mg 20 mg, intravenous, Once, On Fri04/20/19 at 1330, For 1 dose, N/a furosemide injection 40 mg (LASIX) Given 04/21/2019 6:30 AM PRIVATE DUTY NURSE 40 mg 40 mg, intravenous, Once, On Fri04/21/19 at 0700, For 1 dose, N/a levothyroxine tablet 25 mcg (SYNTHROID, Given 04/21/2019 6:30 AM PRIVATE DUTY NURSE 25 mcg LEVOTHROID) 25 mcg, oral, Daily before breakfast, First dose on Fri04/20/19 at 0700, Postprocedure (CV) Given 04/20/2019 5:37 AM PRIVATE DUTY NURSE 25 mcg lidocaine 10 mg/mL (1 %) injection 1 Given 04/19/2019 1:46 PM CS T 7 mL Bilateral mL (XYLOCAINE) 1 mL, intradermal, As needed, with any sheath manipulation. (May repeat twice up to 1 mL each time if patient complains of pain or discomfort at injection site), Starting on Fri04/19/19 at 0911, Intraprocedure (CV) Given 04/19/2019 10:15 AM PRIVATE DUTY NURSE 10 mL Othe r magnesium sulfate in water IVPB 2 g New Bag 04/19/2019 6:06 PM PRIVATE DUTY NURSE 2 g 25 mL/hr 2 g, intravenous, at 25 mL/hr, Administer over 120 Minutes, Once, On Fri04/19/19 at 1745, For 1 dose, Over 2 hours. premix bag metFORMIN tablet 500 mg (GLUCOPHAGE) Given 04/21/2019 8:38 AM PRIVATE DUTY NURSE 500 mg 500 mg, oral, 2 times daily with meals, First dose on Fri04/19/19 at 1700 Given 04/20/2019 5:20 PM PRIVATE DUTY NURSE 500 mg Given 04/20/2019 8:46 AM PRIVATE DUTY NURSE 500 mg methyl salicylate-menthol 30-10 % cream 1 application (ICY HOT) 1 application, topical, Every 2 hour PRN, muscle/joint pain, Starting on Fri04/19/19 at 1628, @@ Generic Substitution for Johnny @@ @ metoprolol tartrate tablet 50 mg (LOPRES SOR) Given 04/21/2019 8:37 AM PRIVATE DUTY NURSE 50 mg 50 mg, oral, 2 times daily, First dose on Fri04/19/19 at 2100 Given 04/20/2019 8:13 PM PRIVATE DUTY NURSE 50 mg Given 04/20/2019 8:45 AM PRIVATE DUTY NURSE [address] capsule 40 mg (PriLOSEC) Given 04/21/2019 6:30 AM PRIVATE DUTY NURSE 40 mg 40 mg, oral, Daily before breakfast, First dose on Fri04/21/19 at 0700, Postprocedure (CV), Do NOT crush or chew. Capsule may be opened and the contents taken without crushing or chewing. potassium chloride ER tablet 40 mEq Given 04/19/2019 6:02 PM PRIVATE DUTY NURSE 40 mEq (KLORCON/K-TAB) 40 mEq, oral, Once, [...] 8.6 mg (SENOKOT) Given 04/21/2019 10:29 AM PRIVATE DUTY NURSE 8.6 mg 8.6 mg, oral, As needed, constipation, Starting on Fri04/19/19 at 0930, Postprocedure (CV) simvastatin tablet 20 mg (ZOCOR) Given 04/20/2019 8:13 PM PRIVATE DUTY NURSE 20 mg 20 mg, oral, Daily at bedtime, First dose on Fri04/19/19 at 2100, Postprocedure (CV) Given 04/19/2019 8:12 PM PRIVATE DUTY NURSE 20 mg sodium chloride 0.9 % injection 10 mL 10 mL, intravenous, As needed, line care , Peripheral Intravenous Catheter and Rapid Infusion Catheter, Starting on Fri at 2109, Prior to blood sampling, post blood transfusion or post blood sampling. sodium chloride 0.9 % injection 3 mL Given 04/20/2019 9:15 PM PRIVATE DUTY NURSE 3 mL 3 mL, intravenous, As needed, line care, Peripheral Intravenous Catheter and Rapid Infusion Catheter, Starting on Fri04/20/19 at 2109, Prior to and following infusion and between multiple consecutive infusions. sodium chloride 0.9 % injection 3 mL Given 04/21/2019 8:38 AM PRIVATE DUTY NURSE 3 mL 3 mL, intravenous, Every 12 hours scheduled, First dose on Fri04/21/19 at 0900, Peripheral Intravenous Catheter and Rapid Infusion Catheter: When no infusion to maintain patency. SUMAtriptan tablet 50 mg (IMITREX) Given 04/21/2019 4:44 AM PRIVATE DUTY NURSE 50 mg 50 mg, oral, Every 2 hour PRN, migraine, Starting on Fri04/19/19 at 0930, For 2 doses, Postprocedure (CV), SUMAtriptan oral was interchanged for rizatriptan Given 04/20/2019 11:29 AM PRIVATE DUTY NURSE 50 mg topiramate tablet 25 mg (TOPAMAX) Given 04/21/2019 8:38 AM PRIVATE DUTY NURSE 25 mg 25 mg, oral, Daily, First dose on Fri04/20/19 at 0900, Postprocedure (CV) Given 04/20/2019 8:46 AM PRIVATE DUTY NURSE 25 mg warfarin management (COUMADIN) oral, Daily, [...] 6 mg (COUMADIN) Given 04/19/2019 6:02 PM PRIVATE DUTY NURSE 6 mg 6 mg, oral, Once, On Fri04/19/19 at 1700, For 1 dose warfarin tablet 6 mg (COUMADIN) Given 04/20/2019 5:20 PM PRIVATE DUTY NURSE 6 mg 6 mg, oral, Once, On Fri04/20/19 at 1700, For 1 dose documented in this encounter Active and Recently Administered Medications Times are shown in PRIVATE DUTY NURSE. Scheduled Medication Order 04/19/2019 04/20/2019 04/21/2019 clotrimazole-betamethasone [...] Jaquez RMary Ann) 0838 (Given - Provider: Talay Duffy RMary Ann)0945 (MAR Hold - Provider: Transfer Provider, Automatic - Reason: Patient not available)0954 ([facility] Unhold - Provider: Transfer Provider, Automatic) [...] Provider, Automatic - Reason: Patient not available)0954 ([facility] Unhold - Provider: Transfer Provider, Automatic) 65 mg of iron, oral, Daily, First dose o n Fri04/20/19 at 0900, Postprocedure (CV) flecainide tablet 100 mg (TAMBOCOR) 2011 (Given - Prov ider: Naren Michaels REdilmaNEdilma) 0845 (Given - Provider: Jhony smith REdilmaNEdilma)2012 (Given - Provider: Valerie Jaquez REdilmaNEdilma) 0838 (Given - Provider: Talya tierney REdilmaNEdilma)0945 ([facility] Hold - Provider: Transfer Provider, Automatic - Reason: Patient not available)0954 ([facility] Unhold - Provider: Transfer Provider, Automatic) 100 mg, oral, 2 times daily, First dose on Fri04/19/19 at 2100 fluticasone furoate 100 mcg/actuation inhaler 1 puff (ARNUIT Y ELLIPTA) 0848 (Given - Provider: Jhony Diego RMary Ann) 0836 (Given - Provider: Talya Duffy REdilmaNEdilma)0945 ([facility] Hold - Provider: Transfer Provider, Automatic - Reason: Patient not available)0954 ([facility] Unhold - Provider: Transfer Provider, Automatic) [...] Provider, Automatic - Reason: Patient not available)0954 ([facility] Unhold - Provider: Transfer Provider, Automatic) [...] Provider, Automatic - Reason: Patient not available)0954 ([facility] Unhold - Provider: Transfer Provider, Automatic) [...] Provider, Automatic - Reason: Patient not available)0954 ([facility] Unhold - Provider: Transfer Provider, Automatic) 50 mg, oral, 2 times daily, First dose on Fri04/19/[address] capsule 40 mg (PriLOSEC) 0630 (Given - Provider: Candy Deluna REdilmaN.)0945 ([facility] Hold - Provider: Transfer Provider, Automatic - Reason: Patient not available)0954 ([facility] Unhold - Provider: Transfer Provider, Automatic) [...] (Given - Provider: Valerie Jaquez REdilmaNEdilma) 0945 ([facility] Hold - Provider: Transfer Provider, Automatic - Reason: Patient not available)0954 ([facility] Unhold - Provider: Transfer Provider, Automatic) 20 mg, oral, Daily at bedtime, First dos e on Fri04/19/19 at 2100, Postprocedure (CV) sodium chloride 0.9 % injection 3 mL 0838 (Given - Provider: Talya Duffy REdilmaNEdilma)0945 ([facility] Hold - Provider: Transfer Provider, Automatic - Reason: Patient not available)0954 ([facility] Unhold - Provider: Transfer Provider, Automatic) 3 mL, intravenous, Every 12 hours schedu led, First dose on Fri04/21/19 at 0900, Peripheral Intravenous Catheter and Rapid Infusion Catheter: When no infusion to maintain patency. topiramate tablet 25 mg (TOPAMAX) 0846 ( Given - Provider: Jhony Diego R.N.) 0838 (Given - Provider: Talya tierney R.N.)0945 ([facility] Hold - Provider: Transfer Provider, Automatic - Reason: Patient not available)0954 ([facility] Unhold - Provider: Transfer Provider, Automatic) 25 mg, oral, Daily, First dose on Fri04/20/19 at 0900, Postproce dure (CV) warfarin management (COUMADIN) 1700 (Due) 0 945 ([facility] Hold - Provider: Transfer Provider, Automatic - Reason: Patient not available)0954 ([facility] Unhold - Provider: Transfer Provider, Automatic) [...] 04/21/2019 acetaminophen tablet 1,000 mg (TYLENOL) 0945 ([facility] Hold - Provider: Transfer Provider, Automatic - Reason: Patient not available)0954 ([facility] Unhold - Provider: Transfer Provider, Automatic)0955 (Given - Provider: Talya Duffy R.N.) 1,000 mg, oral, Every 6 hours PRN, mild pain or score 1-3 of 10, Starting on Fri04/19/19 at 1502, Postprocedure (CV) albuterol 90 mcg/actuation inhaler 2 puff (PROVENTIL HFA,VENTOLI N HFA) 0945 ([facility] Hold - Provider: Transfer Provider, Automatic - Reason: Patient not available)0953 ([facility] Unhold - Provider: Transfer Provider, Automatic) 2 puff, inhalation, Every 4 hours PRN, s hortness of breath, Starting Fri04/19/19 at 0928, Postprocedure (CV) alum-mag hydroxide-simeth 200-200-20 mg/5 mL suspension 15 mL (M AALOX) 0945 ([facility] Hold - Provider: Transfer Provider, Automatic - Reason: Patient not available)0953 ([facility] Unhold - Provider: Transfer Provider, Automatic) 15 mL, oral, Every 6 hours PRN, indigest ion, Starting Fri04/19/19 at 0928, Postprocedure (CV) atropine injection 0.5 mg 0945 ( [facility] Hold - Provider: Transfer Provider, Automatic - Reason: Patient not available)0954 ([facility] Unhold - Provider: Transfer Provider, Automatic) [...] 0453 (Given - Provider: Aria Green R.N.)0945 ([facility] Hold - Provider: Transfer Provider, Automatic - Reason: Patient not available)0954 ([facility] Unhold - Provider: Transfer Provider, Automatic)0955 (Given - Provider: Talya Duffy REdilmaNEdilma) 1 lozenge, oral, Every 4 hours PRN, sore throat, Starting on Fri04/19/19 at 0934, Postprocedure (CV) carboxymethylcellulose 0.5 % ophthalmic solution 1 drop (REFRESH PLUS) 0945 ([facility] Hold - Provider: Transfer Provider, Automatic - Reason: Patient not available)0954 ([facility] Unhold - Provider: Transfer Provider, Automatic) 1 drop, both eyes, 4 times daily PRN, dr alber eyes, Starting Fri04/19/19 at 0931, Postprocedure (CV) diazePAM tablet 2 mg (VALIUM) 09 45 ([facility] Hold - Provider: Transfer Provider, Automatic - Reason: Patient not available)0954 ([facility] Unhold - Provider: Transfer Provider, Automatic) 2 mg, oral, Every 2 hour PRN, anxiety, m uscle spasms, Starting 04/19/19 at 1502, For 2 doses, Postprocedure (CV), May repeat once if first dose ineffective. Until sheath removal. docusate sodium capsule 100 mg (COLACE) 0945 ([facility] Hold - Provider: Transfer Provider, Automatic - Reason: Patient not available)0954 ([facility] Unhold - Provider: Transfer Provider, Automatic)1038 (Not Given - Provider: Talya Duffy R.Marlon. - Reason: Other) 100 mg, oral, 2 times daily PRN, constip ation, Starting 04/19/19 at 0934, Postprocedure (CV), Do NOT crush or chew. docusate sodium capsule 100 mg (COLACE) 0945 ([facility] Hold - Provider: Transfer Provider, Automatic - Reason: Patient not available)0954 ([facility] Unhold - Provider: Transfer Provider, Automatic)1029 (Given - Provider: Talya Duffy R.N.) 100 mg, oral, 2 times daily PRN, constip ation, Starting on Fri04/19/19 at 1502, Postprocedure (CV), Do NOT crush or chew. fentaNYL injection 25 mcg (SUBLIMAZE) 0945 ([facility] Hold - Provider: Transfer Provider, Automatic - Reason: Patient not available)0954 ([facility] Unhold - Provider: Transfer Provider, Automatic) 25 mcg, intravenous, Every 2 hour PRN, m oderate pain or score 4-6 of 10, Starting 04/19/19 at 1502, Postprocedure (CV), May repeat once in dosing interval, if patient unable to take oral analgesics or oral analgesics are ineffective fentaNYL injection 50 mcg (SUBLIMAZE) 0945 ([facility] Hold - Provider: Transfer Provider, Automatic - Reason: Patient not available)0954 ([facility] Unhold - Provider: Transfer Provider, Automatic) [...] Intraprocedure (CV) melatonin tablet 3 mg 0945 ([facility] Hold - Provider: Transfer Provider, Automatic - Reason: Patient not available)0954 ([facility] Unhold - Provider: Transfer Provider, Automatic) 3 mg, oral, Bedtime PRN, sleep, Starting Fri04/19/19 at 0934, Postprocedure (CV) methyl salicylate-menthol 30-10 % cream 1 application (ICY HOT) 0945 ([facility] Hold - Provider: Transfer Provider, Automatic - Reason: Patient not available)0954 ([facility] Unhold - Provider: Transfer Provider, Automatic) 1 application, topical, Every 2 hour PRN , muscle/joint pain, Starting on Fri04/19/19 at 1628, @@ Generic Substitution for BenGay @@@ midazolam (PF) injection 1 mg (VERSED) 0945 ([facility] Hold - Provider: Transfer Provider, Automatic - Reason: Patient not available)0954 ([facility] Unhold - Provider: Transfer Provider, Automatic) 1 mg, intravenous, Every 2 hour PRN, anx iety, muscle spasms, Starting Fri04/19/19 at 1502, For 2 doses, Postprocedure (CV), for over 2 minutes. May repeat x1 dosing interval. Patient must be NPO for 2 hours prior to giving. Until sheath removal. naloxone injection 0.2 mg (NARCAN) 0945 ([facility] Hold - Provider: Transfer Provider, Automatic - Reason: Patient not available)0954 ([facility] Unhold - Provider: Transfer Provider, Automatic) 0.2 mg, intravenous, As needed, respirat ory depression, Starting Fri04/19/19 at 1502, Postprocedure (CV), For respiratory rate less than 8 breaths per minute or RASS score of -3, -4, -5. Apply oxygen to keep oxygen saturations greater than 90% and notify service. oxyCODONE IR tablet 5 mg (ROXICODONE) 0945 ([facility] Hold - Provider: Transfer Provider, Automatic - Reason: Patient not available)0954 ([facility] Unhold - Provider: Transfer Provider, Automatic) 5 mg, oral, Every 6 hours PRN, moderate pain or score 4-6 of 10, Starting Fri04/19/19 at 1502, Postprocedure (CV), If acetaminophen ineffective and patient able to take oral analgesics polyethylene glycol powder packet 17 g (MIRALAX) 0945 ([facility] Hold - Provider: Transfer Provider, Automatic - Reason: Patient not available)0954 ([facility] Unhold - Provider: Transfer Provider, Automatic) 17 g, oral, As needed, constipation, Sta rting Fri04/19/19 at 0929, For 237 days, Postprocedure (CV), Dissolve in 240 mLs (8 ounces) of water prior to giving. Avoid mixing with starch-based thickened liquids. prochlorperazine injection 5 mg (COMPAZINE) 0945 ([facility] Hold - Provider: Transfer Provider, Automatic - Reason: Patient not available)0954 ([facility] Unhold - Provider: Transfer Provider, Automatic) 5 mg, intravenous, Every 6 hours PRN, na usea, vomiting, Starting on Fri04/19/19 at 1744 promethazine injection 6.25 mg (PHENERGAN) 0945 ([facility] Hold - Provider: Transfer Provider, Automatic - Reason: Patient not available)0954 ([facility] Unhold - Provider: Transfer Provider, Automatic) 6.25 mg, intravenous, Every 6 hours PRN, nausea, vomiting, Starting on Fri04/19/19 at 1744 sennosides tablet 8.6 mg (SENOKOT) 0945 ([facility] Hold - Provider: Transfer Provider, Automatic - Reason: Patient not available)0954 ([facility] Unhold - Provider: Transfer Provider, Automatic)1029 (Given - Provider: Talya Duffy R.N.) 8.6 mg, oral, As needed, constipation, S tarting on Fri04/19/19 at 0930, Postprocedure (CV) sodium chloride 0.9 % injection 10 mL 0945 ([facility] Hold - Provider: Transfer Provider, Automatic - Reason: Patient not available)0954 ([facility] Unhold - Provider: Transfer Provider, Automatic) 10 mL, intravenous, As needed, line care , Peripheral Intravenous Catheter and Rapid Infusion Catheter, Starting on Fri04/20/19 at 2109, Prior to blood sampling, post blood transfusion or post blood sampling. sodium chloride 0.9 % injection 3 mL 211 5 (Given - Provider: Valerie Jaquez REdilmaNEdilma) 0945 ([facility] Hold - Provider: Transfer Prov ider, Automatic - Reason: Patient not available)0954 ([facility] Unhold - Provider: Transfer Provider, Automatic) [...] documented as of this encounter Care Teams Data Entry Machine Operator Relationship Specialty Start Date End Date Elsewhere, Pcp PCP - General Internal Medicine 07/27/18 documented as of this encounter
--- OUTSIDE RECORDS SUMMARY | 2022-02-26 09:10 | XMS_ITS | Encounter Summary ---
:1955 Author Organization [facility] Address [address] [place] [address] Care Team Providers Name Role Phone Elsewhere, Pcp Primary Care Provider Unavailable Reason for Referral Outpatient (Routine) - Closed Specialty Diagnoses / Procedures Referred By Contact Refer red To Contact Diagnoses At[facility] Trans[facility]ophageal (MICHAEL) M.B.B.S. [address] [place], [place] [address] Referral ID Status Reason Start Date Expiration Date Visits Requ ested Visits Authorized [id number] Closed 04/19/2019 04/18/2020 1 1 ESSOR OF MEDICINE Reason for Visit Outpatient (Routine) - Closed Specialty Diagnoses / Procedures Referred By Contact Refer red To Contact Diagnoses [facility]rial Fibrillation [facility] Transesophageal (MICHAEL) M.B.B.S. [address] [place] [address] Referral ID Status Reason Start Date Expiration Date Visits Requ ested Visits Authorized [id number] Closed 04/19/2019 04/18/2020 1 1 Encounter Details Date Type Department Care Team Description 04/19/2019 Hospital Encounter Department of Liseth Yeager ibrillation Cardiovascular Diseases Marla ([facility] in [facility] M.B.B.S. [address] [facility] [address] [place] [phone] Social History Tobacco Use Types Packs/Day Years [...] do you attend baptist or Never 2018 scientologist services? Do you [...] Results for this AND LIMITED DOPPLER AM PROFESSOR OF MEDICINE (HCC) procedur e are in the results section. documented in this encounter Results (MICHAEL) 2D WITH COLOR AND LIMITED DOPPLER (04/19/2019 11:49 AM PROFESSOR OF MEDICINE) Anatomical Region Laterality Modality Other Specimen (Source) Anatomical Collection Method Collection Time Re ceived Time Location / / Volume Laterality 04/19/2019 10:15 AM PROFESSOR OF MEDICINE Narrative 04/20/2019 7:51 AM PROFESSOR OF MEDICINE For the complete report, see the Order-L [...] as of this encounter Care Teams Automatic Gluing Machine Operator Relationship Specialty Start Date End Date Elsewhere, Pcp PCP - General Internal Medicine 07/27/18 documented as of this encounter
--- OUTSIDE RECORDS SUMMARY | 2022-02-26 09:10 | XMS_ITS | Encounter Summary ---
:1955 Author Organization [facility] Address [address] [place] [address] Care Team Providers Name Role Phone Elsewhere, Pcp Primary Care Provider Unavailable Reason for Referral MRI/CAT/PET Scan (Routine) - Closed Specialty Diagnoses / Procedures Referred By Contact Refer red To Contact Radiology Diagnoses Atrial Fibrillation Unspecified [facility] Procedures CT Cardiac Angiogram Pulmonary Veins with IV M.D. [address] [place] [address] Referral ID Status Reason Start Date Expiration Date Visits Requ ested Visits Authorized [id number] Closed 03/04/2019 03/03/2020 1 1 INE RESERVATIONIST Reason for Visit MRI/CAT/PET Scan (Routine) - Closed Specialty Diagnoses / Procedures Referred By Contact Refer red To Contact Radiology Diagnoses Atrial Fibrillation Unspecified [facility] Procedures CT Cardiac Angiogram Pulmonary Veins with IV M.D. [address] [place] [address] Referral ID Status Reason Start Date Expiration Date Visits Requ ested Visits Authorized [id number] Closed 03/04/2019 03/03/2020 1 1 Encounter Details Date Type Department Care Team Description 04/16/2019 Hospital Encounter Department of Siontis, Atrial F ibrillation Radiology, Garett Monroy, ([facility]) Building, in M.D. [place], [place] [address] [facility] [address] [place] [phone] [phone] Social History Tobacco Use Types Packs/Day Years [...] do you attend orthodox or Never 2018 yazidi services? Do you [...] context of radiology care priorto contrast/medication administration. INE RESERVATIONIST documented in this encounter Plan of Treatment Scheduled Orders Name Type Priority Associated Diagnoses Order S chedule Creatinine, POCT Point of Care STAT STAT for 1 Occurrences Testing-Docked starting 03/25 Device until 0 documented as of this encounter Procedures Procedure Name Priority Date/Time Associated Comments Diagnosis CT CARDIAC RAD - Routine 04/16/2019 10:12 Atrial Fibrillation Res ults for this ANGIOGRAM (most inpatients AM AIRLINE RESERVATIONIST (HCC) procedure a re in PULMONARY VEINS and all the results WITH IV CONTRAST outpatients) section. CREATININE, POCT, Routine 04/16/2019 9:39 Results for this B AM AIRLINE RESERVATIONIST procedure are i n the results section. CREATININE, POCT, Routine 04/16/2019 9:39 Results for this B AM AIRLINE RESERVATIONIST procedure are i n the results section. documented in this encounter Results CT Cardiac Angiogram Pulmonary Veins with IV (04/16/2019 10:12 AM AIRLINE RESERVATIONIST) Anatomical Region Laterality Modality Cardiac, Cardiovascular RST LOS, N/A Compute d Tomography, Computed Thoracic ARZ LOS, Cardiovascular FLA Godwin ography LOS Specimen (Source) Anatomical Collection Method Collection Time Re ceived Time Location / / Volume Laterality 04/16/2019 10:05 AM AIRLINE RESERVATIONIST Impressions 04/16/2019 10:21 AM AIRLINE RESERVATIONIST 1. Normal variant pulmonary vein anatomy with [...] infectious or inflammatory. Narrative 04/16/2019 10:21 AM AIRLINE RESERVATIONIST EXAM: ??CT CARDIAC ANGIOGRAM PULMONARY VEINS WITH IV CONTRAST COMPARISON: ??[facility] CT chest witho ut intravenous contrast 02/05/2012. [...] T8, unchanged. C holecystectomy clips evident on pig machine operator helper topogram. Procedure Note Nikunj Bolton M.D. - 04/16/2019Formattin g of this note might be different from the original. EXAM: CT CARDIAC ANGIOGRAM PULMONARY VEI NS WITH IV CONTRAST COMPARISON: [facility] CT chest without intravenous contrast 02/05/2012. FINDINGS: [...] T8, unchanged. C holecystectomy clips evident on pig machine operator helper topogram. IMPRESSION: 1. Normal variant [...] CT PROCEDURES Creatinine, POCT (04/16/2019 9:39 AM AIRLINE RESERVATIONIST) P athologist Signature Creatinine, 0.8 0.6 - 1.0 04/16/2019 PCDT POCT, B mg/dL 12:52 PM AIRLINE RESERVATIONIST Comment: ----ADDITIONAL INFORMATION---- Performed at the Point of Care Specimen Anatomical Collection Method Collection Time Receive d Time (Source) Location / / Volume Laterality Blood 04/16/2019 9:39 AM 0 AIRLINE RESERVATIONIST 12:53 PM AIRLINE RESERVATIONIST Unknown Provider LAB POCT ORDERABLES - DEVICE Performing Organization Address [facility]/ZIP Code Phon e Number POC PALMYRA PERFORMING [address] [place] [address] LABS PCDT [facility] [place] [address] [place] POC [address] Creatinine, POCT (04/16/2019 9:39 AM AIRLINE RESERVATIONIST) P athologist Signature eGFR-Black/Afri >90 >=60 04/16/2019 PCMO can Nauruan, mL/min/BSA 12:53 PM AIRLINE RESERVATIONIST POCT Comment: ----ADDITIONAL INFORMATION---- Estimated GFR calculated using the 2009 CKD_EPI creatinine equation. eGFR Non-Black/, 79 >=60 mL/min/BSA 04/16/2019 12:53 PM AIRLINE RESERVATIONIST PCMO POCT Comment: ----ADDITIONAL INFORMATION---- Estimated GFR calculated using the 2009 CKD_EPI creatinine equation. Specimen Anatomical Collection Method Collection Time Receive d Time (Source) Location / / Volume Laterality Blood 04/16/2019 9:39 AM 0 AIRLINE RESERVATIONIST 12:53 PM AIRLINE RESERVATIONIST Unknown Provider LAB POCT ORDERABLES - DEVICE Performing Organization Address [facility] Phon e Number POC [facility]ST JAIN [address] [place] [address] OUTPATIENT LABS PCMO [facility] [place] [address] [place] P[facility] [address] documented in this encounter Visit Diagnoses Diagnosis Atrial Fibrillation Unspecified documented in this encounter Administered Medications Inactive Administered Medications - up to 3 most recent administrations Medication Order MAR Action Action Date Dose Rate Site iohexol 350 mg iodine/mL solution Given 04/16/2019 9:51 AM AIRLINE RESERVATIONIST 1 40 mL 1-200 mL (OMNIPAQUE) 1-200 mL, intravenous, Once in imaging, contrast, Starting on Fri04/16/19 at 0920, For 1 dose, Imaging Protocol Orders, Dose per Radiant Medication Guidelines sodium chloride (PF) 0.9 % injection 1-1 00 mL Given 04/16/2019 9:51 AM AIRLINE RESERVATIONIST 10 mL 1-100 mL, intravenous, Once, On Fri04/16/19 at 0930, For 1 dose, Imaging Protocol Orders documented in this encounter Additional Health Concerns Assessment Noted Time PHQ-9 Depression Total Score: 05/04/2013 4:05 PM CS T documented as of this encounter Care Teams Forensic Nurse Relationship Specialty Start Date End Date Elsewhere, Pcp PCP - General Internal Medicine 07/27/18 documented as of this encounter
--- OUTSIDE RECORDS SUMMARY | 2022-02-26 09:10 | XMS_ITS | Encounter Summary ---
:1955 Author Organization [facility] Address [address] [place] [address] Care Team Providers Name Role Phone Elsewhere, Pcp Primary Care Provider Unavailable Encounter Details Date Type Department Care Team Description 04/19/2019 Clinical Communication Outpatient Surgery and Alberto Mcgowan Procedural Admissions D, R.N. in [address] [place] [phone] [place] [address] Social History Tobacco Use Types Packs/Day Years [...] do you attend yazidi or Never 2018 baptist services? Do you [...] documented as of this encounter Care Teams Vault Teller Relationship Specialty Start Date End Date Elsewhere, Pcp PCP - General Internal Medicine 07/27/18 documented as of this encounter
--- OUTSIDE RECORDS SUMMARY | 2022-02-26 09:10 | XMS_ITS | Encounter Summary ---
:1955 Author Organization [facility] Address [address] [place] [address] Care Team Providers Name Role Phone Elsewhere, Pcp Primary Care Provider Unavailable Encounter Details Date Type Department Care Team Description 04/19/2019 Anesthesia Event Division of Cardiovascular Melyssa Lazar, Diseases in [place], LEAD CASHIER, CRN A [place] [address] [place] [phone] Anesthesia Record Procedure Summary Procedure Name Responsible Anesthesiologist Anesthesia Start Ti me Anesthesia Stop Time ABLATION - PVI Amanda Lazar, NO, GYNECOLOGIST 04/19/19 0853 1414 Events Date Time Event [...] h andoff to the receiving staff during [facility] we 1. Identified the patient [...] 1,000 units/mL injection 15,000 Units heparin standard 84593 Units/250 mL in D5W infusion 3, 767.08 [...] do you attend zoroastrian or Never 2018 sikh services? Do you [...] Procedure Summary Date: 04/19/19 Room / Location: [facility] / [facility] Anesthesia Start: 852 Anesthesia Stop: 1413 [...] Post Op nausea/vomiting: none Hydration status: euvolemic R FOLDING MACHINE OPERATOR Anesthesia Preprocedure Evaluation - Amanda Lazar APRN, CRNA - 04/19/2019 10:58 AM CST Preprocedure Anesthesia & H&P Assessment Procedure Summary Anesthesia Start Date/Time: 04/19/19 0853 Procedures: ABLATION - PVI (N/A ) 3D Mapping - Carto (N/A ) Ultrasound guidance for vascular access (N/A ) Intracardiac Echocardiogram (N/A ) Diagnosis: Atrial Fibrillation (HCC) [I48.91] Location: [place] [address] / [facility] Surgeon: Marla Yeager M.B.B.S. Pertinent components [...] with patient /legal guardian or through an complaint evaluation supervisor. Risks/Benefits/Alternatives of Blood transfusion discussed with patient / legal guardian, including an opportunity to ask questions and/or decline some or all transfusion therapies. The patient / legalguardian consented to the use of all blood products, as deemed medically necessary Approval to Proceed: approved for anesthesia R FOLDING MACHINE OPERATOR Anesthesia Procedure Notes - Amanda Lazar APRN, CRNA - 04/19/2019 9:50 AM PAPER FOLDING MACHINE OPERATOR Associated Order(s): Airway Airway Date/Time: 04/19/2019 9:08 AM Performed by: Amanda Lazar APRN, CRNA Authorized by: Amanda Lazar APRN, CRNA Patient location during procedure: OR / Procedure Area PROCEDURE DETAILS: Mask difficulty assessment: easy mask Final airway type: video laryngoscope Laryngeal Manipulation: no Final best view of glottic structures - Cormack/Lehane Score: grade 2A ETT location: oral VL device: glide scope [place] scope blade size: 3 Adult tube size: [...] airway technique used for educational purposes: yes R FOLDING MACHINE OPERATOR Anesthesia Procedure Notes - Amanda Lazar APRN, CRNA - 04/19/2019 9:49 AM PAPER FOLDING MACHINE OPERATOR Associated Order(s): Invasive Catheter Invasive Catheter [...] with sutureless device Complications - arterial: none R FOLDING MACHINE OPERATOR documented in this encounter Plan of Treatment Not on filedocumented as of this encounter Procedures Procedure Name Priority Date/Time Associated Comments Diagnosis LDA ANE ENDOTRACHEAL Routine 04/19/2019 9:50 AM R esults for this AIRWAY PAPER FOLDING MACHINE OPERATOR procedure are i n the results section. LDA ANE ARTERIAL LINE Routine 04/19/2019 9:49 AM Results for this INSERTION PAPER FOLDING MACHINE OPERATOR procedure are i n the results section. OH ARTL CATH/CNULA Routine 04/19/2019 9:49 AM Res ults for this MONITOR PERC PAPER FOLDING MACHINE OPERATOR procedure are i n the results section. documented in this encounter Results LDA ANE ENDOTRACHEAL AIRWAY (04/19/2019 9:50 AM PAPER FOLDING MACHINE OPERATOR) Narrative Amanda Lazar APRN, CRNA - 04/19/2019 9 :50 AM PAPER FOLDING MACHINE OPERATOR Amanda Lazar APRN, CRNA ? 04/19/2019 [...] ETT location: oral VL device: glide scope [place] scope blade size: 3 Adult tube size: [...] yes Amanda Lazar APRN, CRNA ANESTHESIA ORDERABLES OH ARTL CATH/CNULA MONITOR PERC, LDA ANE ARTERIAL LINE INSERTION (04/19/2019 9:49 AM PAPER FOLDING MACHINE OPERATOR) Narrative Amanda Lazar APRN, CRNA - 04/19/2019 9 :49 AM PAPER FOLDING MACHINE OPERATOR Amanda Lazar APRN, CRNA ? 04/19/2019 [...] Complications - arterial: none Amanda L Nagi LEAD CASHIER, GYNECOLOGIST PROCEDURE/MINOR SURGICAL ORD ERABLES documented in this encounter Visit Diagnoses Not on filedocumented in this encounter Administered Medications Inactive Administered Medications - up to 3 most recent administrations Medication Order MAR Action Action Date Dose Rate Site acetaminophen injection Given 04/19/2019 1:56 PM PAPER FOLDING MACHINE OPERATOR 1,000 mg (OFIRMEV) Administer over 15 Minutes, As needed, Starting on Fri04/19/19 at 1356, Anesthesia Intra-op adenosine injection (ADENOCARD) Given 04/19/2019 1:09 PM PAPER FOLDING MACHINE OPERATOR 9 mg As needed, Starting on Fri04/19/19 at 1301, Anesthesia Intra-op Given 04/19/2019 1:07 PM PAPER FOLDING MACHINE OPERATOR 9 mg Given 04/19/2019 1:01 PM PAPER FOLDING MACHINE OPERATOR 9 mg ceFAZolin injection (ANCEF) Given 04/19/2019 1:20 PM PAPER FOLDING MACHINE OPERATOR 2 g As needed, Starting on Fri04/19/19 at 1027, Anesthesia Intra-op Given 04/19/2019 10:27 AM PAPER FOLDING MACHINE OPERATOR 2 g fentaNYL injection (SUBLIMAZE) Given 04/19/2019 1:50 PM PAPER FOLDING MACHINE OPERATOR 50 mcg As needed, Starting on Fri04/19/19 at 0906, Anesthesia Intra-op Given 04/19/2019 11:34 AM PAPER FOLDING MACHINE OPERATOR 50 mcg Given 04/19/2019 9:56 AM PAPER FOLDING MACHINE OPERATOR 50 mcg fentaNYL injection (SUBLIMAZE) Given 04/19/2019 10:08 AM PAPER FOLDING MACHINE OPERATOR 100 mcg intravenous, As needed, Starting on Fri04/19/19 at 1008, Anesthesia Intra-op furosemide injection (LASIX) Given 04/19/2019 11:41 AM PAPER FOLDING MACHINE OPERATOR 20 mg As needed, Starting on Fri04/19/19 at 1141, Anesthesia Intra-op heparin (porcine) 1,000 unit/mL Given 04/19/2019 12:02 PM PAPER FOLDING MACHINE OPERATOR 3, 000 Units injection As needed, Starting on Fri04/19/19 at 1024, Anesthesia Intra-op Given 04/19/2019 11:12 AM PAPER FOLDING MACHINE OPERATOR 2,000 Units Given 04/19/2019 10:24 AM PAPER FOLDING MACHINE OPERATOR 10,000 Units heparin (porcine) 100 Rate/Dose 04/19/2019 12:55 13 Units/kg/hr 12.8 mL/hr Units/mL in D5W 250 mL Change PM PAPER FOLDING MACHINE OPERATOR infusion Continuous Infusion: Per Instructions PRN, Starting on Fri04/19/19 at 1030, Anesthesia Intra-op Rate/Dose Change 04/19/2019 12:01 PM PAPER FOLDING MACHINE OPERATOR 14 Units/kg/hr 13.8 mL/hr Rate/Dose Change 04/19/2019 11:12 AM PAPER FOLDING MACHINE OPERATOR 12 Units/kg/hr 11.8 mL/hr heparin infusion 2 units/mL in NaCl New Bag 04/19/2019 1:28 PM PAPER FOLDING MACHINE OPERATOR Continuous Infusion: Per Instructions PRN, Starting on Fri04/19/19 at 1212, Anesthesia Intra-op New Bag 04/19/2019 12:12 PM PAPER FOLDING MACHINE OPERATOR lactated ringers New Bag 04/19/2019 8:50 AM PAPER FOLDING MACHINE OPERATOR intravenous, Continuous Infusion: Per Instructions PRN, Starting on Fri04/19/19 at 0850, Anesthesia Intra-op lactated ringers New Bag 04/19/2019 9:23 AM PAPER FOLDING MACHINE OPERATOR intravenous, Continuous Infusion: Per Instructions PRN, Starting on Fri04/19/19 at 0923, Anesthesia Intra-op ondansetron (PF) injection (ZOFRAN) Given 04/19/2019 10:31 AM PAPER FOLDING MACHINE OPERATOR 4 mg intravenous, As needed, Starting on Fri04/19/19 at 1031, Anesthesia Intra-op phenylephrine 80 mcg/mL in Rate/Dose 04/19/2019 1:21 0.1 mcg/kg/min 7.38 mL/hr NaCl 0.9% 250 mL infusion Change PM PAPER FOLDING MACHINE OPERATOR Continuous Infusion: Per Instructions PRN, Starting on Fri04/19/19 at 1029, Anesthesia Intra-op Rate/Dose Change 04/19/2019 1:11 PM PAPER FOLDING MACHINE OPERATOR 0.2 mcg/kg/min 14.8 mL/hr Rate/Dose Change 04/19/2019 1:06 PM PAPER FOLDING MACHINE OPERATOR 0.3 mcg/kg/min 22.1 mL/hr phenylephrine injection Given 04/19/2019 1:44 PM PAPER FOLDING MACHINE OPERATOR 100 mcg intravenous, As needed, Starting on Fri04/19/19 at 1341, Anesthesia Intra-op Given 04/19/2019 1:41 PM PAPER FOLDING MACHINE OPERATOR 100 mcg potassium chloride IVPB Given 04/19/2019 11:48 AM PAPER FOLDING MACHINE OPERATOR 10 mEq Administer over 60 Minutes, As needed, Starting on Fri04/19/19 at 1148, Anesthesia Intra-op propofol injection (DIPRIVAN) Given 04/19/2019 9:33 AM PAPER FOLDING MACHINE OPERATOR 30 mg As needed, Starting on Fri04/19/19 at 0906, Anesthesia Intra-op Given 04/19/2019 9:18 AM PAPER FOLDING MACHINE OPERATOR 40 mg Given 04/19/2019 9:06 AM PAPER FOLDING MACHINE OPERATOR 120 mg propofol injection (DIPRIVAN) Given 04/19/2019 10:35 AM PAPER FOLDING MACHINE OPERATOR 40 mg intravenous, As needed, Starting on Fri04/19/19 at 1035, Anesthesia Intra-op rocuronium injection (ZEMURON) Given 04/19/2019 10:27 AM PAPER FOLDING MACHINE OPERATOR 30 mg As needed, Starting on Fri04/19/19 at 0906, Anesthesia Intra-op Given 04/19/2019 9:06 AM PAPER FOLDING MACHINE OPERATOR 50 mg vecuronium injection (NORCURON) Given 04/19/2019 9:06 AM PAPER FOLDING MACHINE OPERATOR 10 mg As needed, Starting on Fri04/19/19 at 0906, Anesthesia Intra-op documented in this encounter Additional Health Concerns Assessment Noted Time PHQ-9 Depression Total Score: 11 05/04/2013 4:05 PM CS T documented as of this encounter Care Teams Fiction Writer Relationship Specialty Start Date End Date Elsewhere, Pcp PCP - General Internal Medicine 07/27/18 documented as of this encounter
--- OUTSIDE RECORDS SUMMARY | 2022-02-26 09:10 | XMS_ITS | Encounter Summary ---
:1955 Author Organization [facility] Address [address] [place] [id number] Care Team Providers Name Role Phone Elsewhere, Pcp Primary Care Provider Unavailable Reason for Visit Appointment Request (Routine) - Closed Specialty Diagnoses / Procedures Referred By Contact Refer red To Contact Cardiovascular Disease Diagnoses Atrial Fibrillation Unspecified Referral ID Status Reason Start Date Expiration Date Visits Requ ested Visits Authorized [id number] Closed 03/09/2019 03/08/2020 1 Encounter Details Date Type Department Care Team Description 04/16/2019 Office Visit Department of Siontis, Atrial Fibrill ation Other Persistent (HCC) (Primary Dx); Cardiovascular Medicine Porfirio, Lenka ertensive Heart Disease With Heart Failure (HCC); in [facility] nasim Kellogg Diabetes Mellitus Type 2 Without Complic ation (HCC) [address] [place] [address] [address] [place] [address] [place], [place] [phone] Social History Tobacco Use Types Packs/Day Years [...] do you attend amish or Never 2018 faith services? Do you belong to any clubs or No 02/26/2019 organizations such as amish groups, unions, [employer] or athletic groups, or school groups? How [...] Comments Blood Pressure 149/96 04/16/2019 3:55 PM RENEWALS SPECIALIST Pulse 88 04/16/2019 3:55 PM RENEWALS SPECIALIST Temperature - - Respiratory Rate - - [...] last met in the clinic in [facility] and at that time we [...] the above and agreement with the plan. WALS SPECIALIST documented in this encounter Plan of [...] documented as of this encounter Care Teams Landcare Officer Relationship Specialty Start Date End Date Elsewhere, Pcp PCP - General Internal Medicine 07/27/18 documented as of this encounter
--- OUTSIDE RECORDS SUMMARY | 2022-02-26 09:10 | XMS_ITS | Encounter Summary ---
:1955 Author Organization [facility] Address [address] [place] [address] Care Team Providers Name Role Phone Elsewhere, Pcp Primary Care Provider Unavailable Encounter Details Date Type Department Care Team Description 03/09/2019 Clinical Communication Department of Shobha, Cardiovascular Medicine [facility] in [facility] M.B.B.S. [address] [facility] [address] [place] [address] [place], [place] [phone] Social History Tobacco Use Types Packs/Day Years [...] do you attend denominational or Never 2018 temple services? Do you [...] Lyons - 03/09/2019 10:53 AM CST baseline UTER SYSTEMS CONSULTANT documented in this encounter Plan of Treatment Not on filedocumented as of this encounter Visit Diagnoses Not on filedocumented in this encounter Additional Health Concerns Assessment Noted Time PHQ-9 Depression Total Score: 11 05/04/2013 4:05 PM CS T documented as of this encounter Care Teams Trading Analyst Relationship Specialty Start Date End Date Elsewhere, Pcp PCP - General Internal Medicine 07/27/18 documented as of this encounter
--- OUTSIDE RECORDS SUMMARY | 2022-02-26 09:10 | XMS_ITS | Encounter Summary ---
:1955 Author Organization [facility] Address [address] [place] [address] Care Team Providers Name Role Phone Elsewhere, Pcp Primary Care Provider Unavailable Reason for Referral MRI/CAT/PET Scan (Routine) - Closed Specialty Diagnoses / Procedures Referred By Contact Refer red To Contact Radiology Diagnoses Atrial Fibrillation Unspecified [facility] Procedures CT Cardiac Angiogram Pulmonary Veins with IV M.D. [address] [place] [address] Referral ID Status Reason Start Date Expiration Date Visits Requ ested Visits Authorized [id number] Closed 03/04/2019 03/03/2020 1 1 EE BREAK ATTENDANT Outpatient (Routine) - Closed Specialty Diagnoses / Procedures Referred By Contact Refer red To Contact Diagnoses Atrial Fibrillation Unspecified [facility] Procedures ECG 12 Lead M.D. [address] [place] [address] Referral ID Status Reason Start Date Expiration Date Visits Requ ested Visits Authorized [id number] Closed 03/04/2019 03/03/2020 1 1 EE BREAK ATTENDANT Reason for Visit Reason Onset Date Comments schedule PVI ablation with Dr. Chapman 03/04/20 19 Encounter Details Date Type Department Care Team Description 03/04/2019 Clinical Department of Damien, schedule PVI Communication Cardiovascular opal [address] [facility] [address] [facility] Marie [address] [place] [phone] Social History Tobacco Use Types Packs/Day Years [...] do you attend temple or Never 2018 congregation services? Do you [...] for me to proceed? Thank you, Delisa EE BREAK ATTENDANT Telephone Encounter - Rosemarie Quezada R.N. - 03/04/2019 11:32 AM COFFEE BREAK ATTENDANT PATIENT INFORMATION- This was coordinated with Sierra [...] title Preparing for Your Heart Rhythm Procedure [id number] and [facility] protocols: title Heart Rhythm Clinic [id number] and Medication Management for Patients Undergoing Heart Ablation and LEft Atrial Appendage Occlusion [id number] EE BREAK ATTENDANT documented in this encounter Plan of Treatment Not on filedocumented as of this encounter Results ECG 12 Lead (04/16/2019 10:49 AM COFFEE BREAK ATTENDANT) [facility] Method Time Signature Ventricular 91 BPM MUSE Rate ECG/Min QRSD Interval 92 ms MUSE QT Interval 360 ms MUSE QTC Interval 442 ms MUSE R [place] 91 degrees MUSE T Wave [place] -80 degrees MUSE CODED Atrial MUSE DIAGNOSIS fibrillation Specimen Anatomical Collection Method Collection Time Receive d Time (Source) Location / / Volume Laterality 04/16/2019 10:49 04/16/2019 AM COFFEE BREAK ATTENDANT 10:55 AM COFFEE BREAK ATTENDANT Impressions MUSE - 04/16/2019 10:55 AM COFFEE BREAK ATTENDANT Atrial fibrillation Rightward axis ST and T [...] Pulmonary Veins with IV (04/16/2019 10:12 AM COFFEE BREAK ATTENDANT) Anatomical Region Laterality Modality Cardiac, Cardiovascular RST LOS, N/A Compute d Tomography, Computed Thoracic ARZ LOS, Cardiovascular FLA Godwin ography LOS Specimen (Source) Anatomical Collection Method Collection Time Re ceived Time Location / / Volume Laterality 04/16/2019 10:05 AM COFFEE BREAK ATTENDANT Impressions 04/16/2019 10:21 AM COFFEE BREAK ATTENDANT 1. Normal variant pulmonary vein anatomy with [...] infectious or inflammatory. Narrative 04/16/2019 10:21 AM COFFEE BREAK ATTENDANT EXAM: ??CT CARDIAC ANGIOGRAM PULMONARY VEINS WITH [...] T8, unchanged. C holecystectomy clips evident on evs manager topogram. Procedure Note Nikunj Bolton M.D. - [...] T8, unchanged. C holecystectomy clips evident on evs manager topogram. IMPRESSION: 1. Normal variant pulmonary vein [...] as of this encounter Care Teams Supervisor Solder Making Relationship Specialty Start Date End Date Elsewhere, Pcp PCP - General Internal Medicine 07/27/18 documented as of this encounter
--- OUTSIDE RECORDS SUMMARY | 2022-02-26 09:11 | XMS_ITS | Encounter Summary ---
:1955 Author Organization [facility] Address [address] [place] [address] Care Team Providers Name Role Phone Elsewhere, Pcp Primary Care Provider Unavailable Reason for Visit Appointment Request (Routine) - Closed Specialty Diagnoses / Procedures Referred By Contact Refer red To Contact Cardiovascular Disease Porfirio Villegas M.D. [address] [place] [address] Referral ID Status Reason Start Date Expiration Date Visits Requ ested Visits Authorized [id number] Closed 01/25/2019 01/25/2020 1 1 Encounter Details Date Type Department Care Team Description 02/26/2019 Office Visit Department of Newton Villegas Cardiovascular Medicine Porfirio (SISI C) (Primary Dx) in [facility] nasim Kellogg [address] [facility] [address] [place] [address] [place], [place] [phone] Social History Tobacco Use Types Packs/Day Years [...] do you attend christianity or Never 2018 hinduism services? Do you [...] (218 lb 0.6 oz) 02/26/2019 1:12 PM NAVIGATION OFFICER Height 165.6 cm (5' 5.2) 02/26/2019 1:12 PM NAVIGATION OFFICER Body Mass Index 36.06 02/26/2019 1:12 PM NAVIGATION OFFICER documented in this encounter Progress Notes Porfirio [...] or concerns arise. Reviewed with Dr. Yeager. GATION OFFICER documented in this encounter Plan of Treatment Not on filedocumented as of this encounter Visit Diagnoses Diagnosis Atrial Fibrillation Unspecified - Primar y documented in this encounter Additional Health Concerns Assessment Noted Time PHQ-9 Depression Total Score: 11 05/04/2013 4:05 PM CS T documented as of this encounter Care Teams Material Inspector Relationship Specialty Start Date End Date Elsewhere, Pcp PCP - General Internal Medicine 07/27/18 documented as of this encounter
--- OUTSIDE RECORDS SUMMARY | 2022-02-26 09:11 | XMS_ITS | Encounter Summary ---
:1955 Author Organization [facility] Address [address] [place] [address] Care Team Providers Name Role Phone Elsewhere, Pcp Primary Care Provider Unavailable Reason for Referral Outpatient (Routine) - Closed Specialty Diagnoses / Procedures Referred By Contact Refer red To Contact [facility] Bess [facility] [address] [place] [address] Referral ID Status Reason Start Date Expiration Date Visits Requ ested Visits Authorized [id number] Closed 11/02/2018 11/02/2019 1 1 Scheduling Instructions With myself on 11/11 in the afternoon Encounter Details Date Type Department Care Team Description 11/02/2018 Orders Only Department of Cody Villegas Atrial (HCC) Cardiovascular Medicine Porfirio (Pr imary Dx) in [facility] nasim Kellogg [address] [facility] [address] [place] [address] [place], [place] [phone] Social History Tobacco Use Types Packs/Day Years [...] ECG 12 Lead (11/25/2018 12:31 PM CDT) [facility] gist Method Time Signature Ventricular 96 BPM MUSE Rate ECG/Min QRSD Interval 98 ms MUSE QT Interval 274 ms MUSE QTC Interval 346 ms MUSE P [place] -106 degrees MUSE R [place] 99 degrees MUSE T Wave [place] -99 degrees MUSE CODED DIAGNOSIS Atrial MUSE [...] documented as of this encounter Care Teams Truck Car And Bus Cleaner Relationship Specialty Start Date End Date Elsewhere, Pcp PCP - General Internal Medicine 07/27/18 documented as of this encounter
--- OUTSIDE RECORDS SUMMARY | 2022-02-26 09:11 | XMS_ITS | Encounter Summary ---
:1955 Author Organization [facility] Address [address] [place] [address] Care Team Providers Name Role Phone Elsewhere, Pcp Primary Care Provider Unavailable Encounter Details Date Type Department Care Team Description 11/26/2018 Clinical Communication [facility], Work in [facility].S., M .[place] [address] [place] [address] [address] [place] [phone] Social History Tobacco Use Types Packs/Day Years [...] do you attend temple or Never 2018 jewish services? Do you [...] documented as of this encounter Care Teams Holter Scanning Technician Relationship Specialty Start Date End Date Elsewhere, Pcp PCP - General Internal Medicine 07/27/18 documented as of this encounter
--- OUTSIDE RECORDS SUMMARY | 2022-02-26 09:11 | XMS_ITS | Encounter Summary ---
:1955 Author Organization [facility] Address [address] [place] [address] Care Team Providers Name Role Phone Elsewhere, Pcp Primary Care Provider Unavailable Encounter Details Date Type Department Care Team Description 11/25/2018 Hospital Encounter Department of Siontis, Abnormal Liver Radiology, Garett Monroy [facility] in .Edilma [place], [place] [address] [facility] [address] [place] [phone] Social History Tobacco Use Types Packs/Day Years [...] do you attend yarsanism or Never 2018 sikhism services? Do you [...] documented as of this encounter Care Teams Captain Fishing Vessel Relationship Specialty Start Date End Date Elsewhere, Pcp PCP - General Internal Medicine 07/27/18 documented as of this encounter
--- OUTSIDE RECORDS SUMMARY | 2022-02-26 09:11 | XMS_ITS | Encounter Summary ---
:1955 Author Organization [facility] Address [address] [place] [address] Care Team Providers Name Role Phone Elsewhere, Pcp Primary Care Provider Unavailable Reason for Visit Reason Onset Date Comments Plan update 01/25/2019 Communication Encounter Details Date Type Department Care Team Description 01/25/2019 Clinical Department of [facility], Plan update Communication Cardiovascular Porfirio (Communicati on) [facility] [place] [address] [facility] [address] [place] [phone] [place] [address] Social History Tobacco Use Types Packs/Day Years [...] do you attend quaker or Never 2018 druze services? Do you [...] - 01/25/2019 1:38 PM CST Sierra from [employer] called as she wondered the plan for patient and at what point would be pacemaker placement. Please call Sierra at [phone] Thank you Diana (Answering for Deepti) OFFICE ATTENDANT documented in this encounter Plan of Treatment Not on filedocumented as of this encounter Visit Diagnoses Not on filedocumented in this encounter Additional Health Concerns Assessment Noted Time PHQ-9 Depression Total Score: 11 05/04/2013 4:05 PM CS T documented as of this encounter Care Teams Financial Agent Relationship Specialty Start Date End Date Elsewhere, Pcp PCP - General Internal Medicine 07/27/18 documented as of this encounter
--- OUTSIDE RECORDS SUMMARY | 2022-02-26 09:11 | XMS_ITS | Encounter Summary ---
:1955 Author Organization [facility] Address [address] [place] [address] Care Team Providers Name Role Phone Elsewhere, Pcp Primary Care Provider Unavailable Reason for Referral Outpatient (Routine) - Closed Specialty Diagnoses / Procedures Referred By Contact Refer red To Contact Cardiovascular Tip Villegas [place] Guanaco Monroy M.D. [address] [place] [address] Referral ID Status Reason Start Date Expiration Date Visits Requ ested Visits Authorized [id number] Closed 11/25/2018 11/25/2019 1 1 Reason for Visit Outpatient (Routine) - Closed Specialty Diagnoses / Procedures Referred By Contact Reggie harris To Contact Cardiovascular Tip Villegas [place] Guanaco Monroy M.D. [address] [place] [address] Referral ID Status Reason Start Date Expiration Date Visits Requ ested Visits Authorized [id number] Closed 11/02/2018 11/02/2019 1 1 Encounter Details Date Type Department Care Team Description 11/25/2018 Office Visit Department of Nelly, Thrombus Atria l (HCC) (Primary Dx); Cardiovascular Medicine Lynette Monroy tter Atrial (HCC) in [facility] nasim Kellogg 200 [facility] [address] [place] [address] [place], [place] [phone] Social History Tobacco Use Types Packs/Day Years [...] do you attend sabianist or Never 2018 yarsanism services? Do you [...] / PLAN #1 Atrial flutter, paroxysmal #2 Tachy-advy syndrome #3 Tachycardia-induced cardiomyopathy, resolved #4 Mitral [...] is telling me that her power of carbon capture power plant engineer is her oldest son; however, it is unclear whether this has been finalized legally. I will request a consult by a adoption social worker to assist in those decisions. [...] member who is legally her power of carbon capture power plant engineer. The patient also has a Hepatology Clinic [...] ventricul ar ejection fraction 55 % with xuur-hj-tqrq variability. RIGHT VENTRICLE: ??Mild right ventricul ar [...] performed at the request of the primary deputy sheriff court services. ??Adult probe inserted without difficulty. ??Procedure [...] or other pertinent record in [facility] for additional procedure and sedation in formation. [...] ventricular ejection f raction 55 % with vbcz-it-xuux variability. 5. Tiny pericardial effusion around the [...] [facility] July 01 2018 and October 20 2018 for other details of resting finding. Procedure Note Rhina Lucas M.B.B.S., Ph.D. - For the complete report, see the [facility] Documents below. Final Impressions 1. [...] ventricular ejection f raction 55 % with jdlt-aw-dkhr variability. 5. Tiny pericardial effusion around the [...] 7. Please refer to the report of [facility] MICHAEL from July 01 [...] left ventricular ejection fraction 55 % with usfj-en-biik variability. RIGHT VENTRICLE: Mild right ventricular enlargement. [...] performed at the request of the primary deputy sheriff court services. Adult pr obe inserted without difficulty. [...] documented as of this encounter Care Teams Land Management Forester Relationship Specialty Start Date End Date Elsewhere, Pcp PCP - General Internal Medicine 07/27/18 documented as of this encounter
--- OUTSIDE RECORDS SUMMARY | 2022-02-26 09:11 | XMS_ITS | Encounter Summary ---
:1955 Author Organization [facility] Address [address] [place] [address] Care Team Providers Name Role Phone Elsewhere, Pcp Primary Care Provider Unavailable Reason for Visit Outpatient (Routine) - Closed Specialty Diagnoses / Referred By Referred To Cont act Procedures Contact Gastroenterology and Diagnoses Abnormal Liver Function Test [facility] Hepatology Bess Monroy [address] [place] [address] Referral ID Status Reason Start Date Expiration Date Visits Requ ested Visits Authorized [id number] Closed 10/21/2018 10/21/2019 1 1 Encounter Details Date Type Department Care Team Description 12/11/2018 Comprehensive Visit Division of Lele Villegas M.D. [address] [place] [phone] Abnormal Liver Function Test; Gastroenterology in Joseph Verduzco M.B.B.S., MCarlos [address] [place] [address] Abnormal Levels Of Other Serum Enzymes [place], [place] [address] [place] [phone] Social History Tobacco Use Types Packs/Day Years [...] do you attend zoroastrianism or Never 2018 rastafarian services? Do you [...] past. She was recently admitted to the [facility] in June 2012 showed atrial flutter. She was then transferred to [facility] for further management. Echocardiogram in on [...] file Gets together: Not on file Attends rastafarian service: Not on file Active member of [...] Dr. Verduzco's note. CT CT Job ID: [id number] documented in this encounter Plan of Treatment [...] >=60 12/11/2018 Black/ mL/min/BSA 12:17 PM CDT Italian Comment: ----ADDITIONAL INFORMATION---- Estimated GFR calculated using [...] M.D. LAB BLOOD ADD-ON Performing Organization Address [facility]/ZIP Code Phon e Number [facility] - [address] [place] [address] 05 [facility] Ceruloplasmin (12/11/2018 10:44 AM CDT) P athologist Signature Ceruloplasmin, 31.7 20.0 - 51.0 12/11/2018 S mg/dL 12:35 PM CDT Specimen Anatomical Collection Method Collection Time Receive d Time (Source) Location / / Volume Laterality Blood (Blood, 12/11/2018 10:44 12/11/2018 Venous) AM CDT 11:57 AM CDT Joseph Pham M.D. LAB BLOOD ADD-ON Performing Organization Address City/[facility] Code Phon e Number [facility] - [address] [place] [address] [facility] (ABNORMAL) MELINDA (Antinuclear Antibodies) (12/11/2018 [...] M.D. LAB BLOOD ADD-ON Performing Organization Address City/[facility]/ZIP Code Phon e Number [facility] [address] [place], [place] [address] [facility] Hepatitis A [...] - B LOOD ORDERABLES Performing Organization Address [facility] Phon e Number [address] [place] [address] 05 [facility] Smooth Muscle Antibodies (12/11/2018 10:44 AM CDT) athologist Signature Smooth Muscle Negative Negative 12/12/2018 Antibody, S 2:49 PM CDT Comment: ----ADDITIONAL INFORMATION---- This test was developed and its performa nce characteristics determined by [facility] in a manner consistent with CLIA requirements. This test has not been cleared or approved by the [place] d and Drug Administration. Specimen Anatomical Collection Method Collection Time Receive d Time (Source) Location / / Volume Laterality Blood (Blood, 12/11/2018 10:44 12/11/2018 2:40 Venous) AM CDT PM CDT Joseph Pham M.D. LAB BLOOD ADD-ON Performing Organization Address [facility] Phon e Number [address] [place] [address] [facility] HCV Ab Scrn w/Reflex to HCV PCR, Serum (12/11/2018 10:44 AM CDT) P athologist Signature HCV Ab Screen, Negative Negative 12/11/2018 S 3:47 PM CDT Comment: Xxwxak-eg-mwhazq ratio is <1.00 . Specimen Anatomical Collection Method Collection Time Receive d Time (Source) Location / / Volume Laterality Blood (Blood, 12/11/2018 10:44 12/11/2018 2:30 Venous) AM CDT PM CDT Joseph Pham M.D. LAB MICROBIOLOGY - B LOOD ORDERABLES Performing Organization Address City/State/ZIP Code Phon e Number [facility] [address] [place], [place] [address] [facility] HBc Total Ab, Serum (12/11/2018 10:44 AM CDT) athologist Signature HBc Total Ab, Negative Negative 12/11/2018 S 3:47 PM CDT Specimen Anatomical Collection Method Collection Time Receive d Time (Source) Location / / Volume Laterality Blood (Blood, 12/11/2018 10:44 12/11/2018 2:30 Venous) AM CDT PM CDT Joesph Pham M.D. LAB MICROBIOLOGY - B LOOD ORDERABLES Performing Organization Address [facility]/ZIP Code Phon e Number [address] [place] [address] [facility] Hepatitis B Surface Antigen (12/11/2018 10:44 AM CDT) athologist Signature HBs Antigen, S Negative Negative 12/11/2018 3:29 PM CDT Specimen Anatomical Collection Method Collection Time Receive d Time (Source) Location / / Volume Laterality Blood (Blood, 12/11/2018 10:44 12/11/2018 2:30 Venous) AM CDT PM CDT Joseph Pham M.D. LAB MICROBIOLOGY - B LOOD ORDERABLES Performing Organization Address City/[facility]/ZIP Code Phon e Number [address] [place], [place] [address] [facility] Immunoglobulin M (IgM) (12/11/2018 10:44 AM CDT) [facility] Method Time Signature Immunoglobulin M 74 37 - 286 12/11/2018 (IgM), S mg/dL 5:00 PM CDT Specimen Anatomical Collection Method Collection Time Receive d Time (Source) Location / / Volume Laterality Blood (Blood, 12/11/2018 10:44 12/11/2018 2:37 Venous) AM CDT PM CDT Joseph Pham M.D. LAB BLOOD ADD-ON Performing Organization Address City/[facility]/ZIP Code Phon e Number [address] LORA Gonzales [facility] 05 [facility] Immunoglobulin G (IgG) [...] M.D. LAB BLOOD ADD-ON Performing Organization Address [facility] Phon e Number [facility] [address] EDDIE Velas[place] [facility] 05 [facility] HBs [...] - B LOOD ORDERABLES Performing Organization Address [facility] Phon e Number [facility] [address] EDDIE Velasco [facility] 05 [facility] (ABNORMAL) Celiac Disease Serology [place] (12/11/2018 10:44 AM CDT) Component Value Ref [...] M.D. LAB BLOOD ADD-ON Performing Organization Address [facility] Phon e Number [address] [place] [address] [facility] Fbvyb-8-Kraekmvfyzs Phenotype (12/11/2018 10:44 AM CDT) P athologist Signature Btduu-6-Ufzvskp 131 100 - 190 12/11/2018 psin, S mg/dL 3:46 PM CDT Slmwc-5-Syzigoe MM bands 12/14/2018 psin Phenotype 3:10 PM CDT Comment: A single M isoform is detected. In the c ontext of a normal lrjvt-8-iualxkngele concentration, this is consistent with an MM phenotype. Specimen Anatomical Collection Method Collection Time Receive d Time (Source) Location / / Volume Laterality Blood (Blood, 12/11/2018 10:44 12/11/2018 2:37 Venous) AM CDT PM CDT Joseph Pham M.D. LAB BLOOD ADD-ON Performing Organization Address [facility] Phon e Number [address] [place] [address] [facility] Mitochondrial Antibodies (M2) (12/11/2018 [...] M.D. LAB BLOOD ADD-ON Performing Organization Address City/[facility]/ZIP Code Phon e Number [facility] [address] [place] [address] [facility] Iron and Total Iron-Binding [...] M.D. LAB BLOOD ADD-ON Performing Organization Address City/[facility]/ZIP Code Phon e Number [facility] - [address] [place] [address] 05 [facility] Ferritin (12/11/2018 10:44 AM CDT) athologist Signature Ferritin, S 63 11 - 307 12/11/2018 mcg/L 12:15 PM CDT Specimen Anatomical Collection Method Collection Time Receive d Time (Source) Location / / Volume Laterality Blood (Blood, 12/11/2018 10:44 12/11/2018 Venous) AM CDT 11:05 AM CDT Joseph Pham M.D. LAB BLOOD ADD-ON Performing Organization Address City/[facility] Code Phon e Number [facility] - [address] [place] [address] 05 [facility] CBC without Differential (12/11/2018 10:44 [...] [facility] [address] documented in this encounter Visit Diagnoses Diagnosis Abnormal Liver Function Test Abnormal Levels Of Other Serum Enzymes documented in this encounter Additional Health Concerns Assessment Noted Time PHQ-9 Depression Total Score: 11 05/04/2013 4:05 PM CS T documented as of this encounter Care Teams B2B Sales Professional Relationship Specialty Start Date End Date Elsewhere, Pcp PCP - General Internal Medicine 07/27/18 documented as of this encounter
--- OUTSIDE RECORDS SUMMARY | 2022-02-26 09:11 | XMS_ITS | Encounter Summary ---
:1955 Author Organization [facility] Address [address] [place] [address] Care Team Providers Name Role Phone Elsewhere, Pcp Primary Care Provider Unavailable Reason for Visit Outpatient (Routine) - Canceled Specialty Diagnoses / Procedures Referred By Contact Refer red To Contact Social Work Diagnoses Thrombus Atrial (HCC) Flutter Atrial (HCC) Porfirio Villegas [facility] Bess [address] [place] [phone] Referral ID Status Reason Start Date Expiration Date Visits V isits Requested Authorized [id number] Canceled 11/25/2018 11/25/2019 1 1 Encounter Details Date Type Department Care Team Description 11/26/2018 Clinical Communication Department of Porfirio Fraga M.D. [address] [place] [phone] No Show Work in [place], Teresa, Andrade Mccall.C.S.W., M.S.WEdilma [address] [place] [phone] [place] [address] [place] [phone] Social History Tobacco Use Types Packs/Day Years [...] do you attend samaritan or Never 2018 restorationism services? Do you [...] back number for patient to call office [phone] documented in this encounter Plan of Treatment Not on filedocumented as of this encounter Visit Diagnoses Not on filedocumented in this encounter Additional Health Concerns Assessment Noted Time PHQ-9 Depression Total Score: 11 05/04/2013 4:05 PM CS T documented as of this encounter Care Teams Plate Take Out Worker Relationship Specialty Start Date End Date Elsewhere, Pcp PCP - General Internal Medicine 07/27/18 documented as of this encounter
--- OUTSIDE RECORDS SUMMARY | 2022-02-26 09:11 | XMS_ITS | Encounter Summary ---
:1955 Author Organization [facility] Address [address] [place] [address] Care Team Providers Name Role Phone Elsewhere, Pcp Primary Care Provider Unavailable Encounter Details Date Type Department Care Team Description 01/19/2019 Hospital Encounter Department of Siontis, Thrombus Atrial (HCC); Cardiovascular Diseases Porfirio, Flu tter Atrial (HCC) in [facility] nasim Kellogg [address] [facility] [address] [place] [address] [phone] Social History Tobacco Use Types Packs/Day Years [...] do you attend gnosticism or Never 2018 christian services? Do you [...] a missing H&P. Health Information Management Services ESTION CLERK documented in this encounter Plan of [...] ventricul ar ejection fraction 55 % with lscu-cm-iacw variability. RIGHT VENTRICLE: ??Mild right ventricul ar [...] at the request of the primary manager service desk. ??Adult probe inserted without difficulty. ??Procedure performed [...] ventricular ejection f raction 55 % with gfqm-zr-nmgs variability. 5. Tiny pericardial effusion around the [...] ventricular ejection f raction 55 % with twif-ep-cica variability. 5. Tiny pericardial effusion around the [...] left ventricular ejection fraction 55 % with llfy-hd-kndb variability. RIGHT VENTRICLE: Mild right ventricular enlargement. [...] at the request of the primary manager service desk. Adult pr obe inserted without difficulty. Procedure [...] documented as of this encounter Care Teams Fringe Weaver Relationship Specialty Start Date End Date Elsewhere, Pcp PCP - General Internal Medicine 07/27/18 documented as of this encounter
--- OUTSIDE RECORDS SUMMARY | 2022-02-26 09:11 | XMS_ITS | Encounter Summary ---
:1955 Author Organization [facility] Address [address] [place] [address] Care Team Providers Name Role Phone Elsewhere, Pcp Primary Care Provider Unavailable Encounter Details Date Type Department Care Team Description 03/01/2019 Clinical Communication Department of [facility] [place] [address] [facility] [address] [place] [address] [place], [place] [phone] Social History Tobacco Use Types Packs/Day [...] do you attend yazidi or Never 2018 zoroastrian services? Do you [...] Porfirio Villegas M.D. - 03/02/2019 6:33 AM STAFF DESIGN ENGINEER Our master scheduler, Rosemarie Quezada, is already working on this. Thank you F DESIGN ENGINEER Telephone Encounter - Delisa Lyons - 03/01/2019 2:[address] Villegas, Patient had called and said that you were possibly looking at an ablation for her. Is this somethingwe should start to schedule? Thank you. PASS: Call Mo[facility] [phone] acute care nursing assistant for patient - leave vm if no answer F DESIGN ENGINEER documented in this encounter Plan of Treatment Not on filedocumented as of this encounter Visit Diagnoses Not on filedocumented in this encounter Additional Health Concerns Assessment Noted Time PHQ-9 Depression Total Score: 11 05/04/2013 4:05 PM CS T documented as of this encounter Care Teams Computer Game Programmer Relationship Specialty Start Date End Date Elsewhere, Pcp PCP - General Internal Medicine 07/27/18 documented as of this encounter
--- OUTSIDE RECORDS SUMMARY | 2022-02-26 09:11 | XMS_ITS | Encounter Summary ---
:1955 Author Organization [facility] Address [address] [place] [address] Care Team Providers Name Role Phone Elsewhere, Pcp Primary Care Provider Unavailable Reason for Referral Outpatient (Routine) - Closed Specialty Diagnoses / Procedures Referred By Contact Refer red To Contact Diagnoses Flutter Atrial (HCC) [facility] Procedures ECG 12 Lead M.DEdilma [address] [place] [address] Referral ID Status Reason Start Date Expiration Date Visits Requ ested Visits Authorized [id number] Closed 01/21/2019 01/21/2020 1 1 Reason for Visit Outpatient (Routine) - Closed Specialty Diagnoses / Procedures Referred By Contact Refer red To Contact [facility] Bess Monroy [address] [place] [address] Referral ID Status Reason Start Date Expiration Date Visits Requ ested Visits Authorized [id number] Closed 11/25/2018 11/25/2019 1 1 Encounter Details Date Type Department Care Team Description 01/20/2019 Office Visit Department of Nelly Flutter Atrial (HCC) Cardiovascular Medicine Porfirio (Pr imary Dx) in Clarissa Velasco M.D. [address] [facility] [address] [place] [phone] [place], [place] [phone] Social History Tobacco Use Types Packs/Day Years [...] do you attend episcopal or Never 2018 jain services? Do you [...] engage her son, Yaya, who lives in [place]. Please see child welfare social worker documentation dated November 24, 2018. Unfortunately, Yaya was not able to make it to the appointment today. At this point, it appears that she is her own decision-maker without anyone formally appointed as a power of collections attorney. However, she identifies her son, Yaya, [...] Results ECG 12 Lead (02/26/2019 1:32 PM HOIST WORKER) [facility] Method Time Signature Ventricular 88 BPM MUSE Rate ECG/Min QRSD Interval 102 ms MUSE QT Interval 358 ms MUSE QTC Interval 433 ms MUSE R Chester 88 degrees MUSE T Wave Chester -89 degrees MUSE CODED Atrial MUSE DIAGNOSIS fibrillation CODED Atrial MUSE DIAGNOSIS fibrillation CODED Atrial flutter MUSE DIAGNOSIS Specimen Anatomical Collection Method Collection Time Receive d Time (Source) Location / / Volume Laterality 02/26/2019 1:32 PM 9 1:46 HOIST WORKER PM HOIST WORKER Impressions MUSE - 02/26/2019 1:46 PM HOIST WORKER Atrial fibrillation ST and T wave abnormality, [...] documented as of this encounter Care Teams Cns Relationship Specialty Start Date End Date Elsewhere, Pcp PCP - General Internal Medicine 07/27/18 documented as of this encounter
--- OUTSIDE RECORDS SUMMARY | 2022-02-26 09:11 | XMS_ITS | Encounter Summary ---
:1955 Author Organization [facility] Address [address] [place] [address] Care Team Providers Name Role Phone Elsewhere, Pcp Primary Care Provider Unavailable Encounter Details Date Type Department Care Team Description 10/22/2018 Clinical Communication Department of Marley Cooper Cardiovascular Medicine D in [facility] [phone] [address] [facility] (Work) [place] [phone] Social History Tobacco Use Types Packs/Day [...] do you attend anglican or Never 2018 anglican services? Do you [...] documented as of this encounter Care Teams Office Electrician Relationship Specialty Start Date End Date Elsewhere, Pcp PCP - General Internal Medicine 07/27/18 documented as of this encounter
--- OUTSIDE RECORDS SUMMARY | 2022-02-26 09:11 | XMS_ITS | Encounter Summary ---
:1955 Author Organization [facility] Address [address] [place] [address] Care Team Providers Name Role Phone Elsewhere, Pcp Primary Care Provider Unavailable Encounter Details Date Type Department Care Team Description 12/01/2018 Clinical Communication [facility] of [facility] post, Work in [facility].S., M .S.W. [place] [address] [place] [address] [address] [place] [address] [phone] Social History Tobacco Use Types Packs/Day Years [...] do you attend catholic or Never 2018 voodoo services? Do [...] 10:59 AM CDT Call to Ms. Metcalf ([phone]) following up to last week's missed phone appointment. Left message requesting call back to [phone]. [Based on appointment referral and chart notes, [...] as of this encounter Care Teams Sales & Service Associate Relationship Specialty Start Date End Date Elsewhere, Pcp PCP - General Internal Medicine 07/27/18 documented as of this encounter
--- OUTSIDE RECORDS SUMMARY | 2022-02-26 09:11 | XMS_ITS | Encounter Summary ---
:1955 Author Organization [facility] Address [address] [place] [address] Care Team Providers Name Role Phone Elsewhere, Pcp Primary Care Provider Unavailable Encounter Details Date Type Department Care Team Description 12/04/2018 Clinical Communication [facility], Work in [facility].S., M .S.W. [place] [address] [place] [address] [address] [place] [phone] [phone] Social History Tobacco Use Types Packs/Day Years [...] do you attend congregation or Never 2018 amish services? Do you [...] emergency contact. Of note, Ramin's correct contact [facility]: [phone]. Alternative number listed ([phone]) is an invalid number. Ramin resides in [place] and would try to make sure I'm [...] assisting her as able. Ramin resides in [place] and would try to make sure I'm available to attend appointments with her. I explained I was requested to call due to concern from [facility] that Ms. Metcalf may not be fully capable of making an informed decision regarding pacemaker surgery being suggested. Ramin states his mother does not have any formal decision maker in place, and does not have any advanced directive or powerof defense attorney forms completed. I provided education on health care advanced directives and mailed the [facility] Directive materials to Ramin's home to review with his mother. Ramin states patient is currently living at [facility]. He does not say how long she has been there. He states they have been working on transition to a usp facility, however they need to be able to handle her medical condition before she can be transferred. I explained that the staff at [facility] could also provide and review [...] documented as of this encounter Care Teams Industrial Organization Manager Relationship Specialty Start Date End Date Elsewhere, Pcp PCP - General Internal Medicine 07/27/18 documented as of this encounter
--- OUTSIDE RECORDS SUMMARY | 2022-02-26 09:11 | XMS_ITS | Encounter Summary ---
:1955 Author Organization [facility] Address [address] [place] [address] Care Team Providers Name Role Phone Elsewhere, Pcp Primary Care Provider Unavailable Encounter Details Date Type Department Care Team Description 11/25/2018 Hospital Encounter Department of Siontis, Abnormal Liver Laboratory Medicine Branden Monroy [facility] in [address] [place], [place] [address] [facility] [address] [place], [place] [phone] [address] (Work) [phone] Social History Tobacco Use Types Packs/Day Years [...] do you attend gnosticist or Never 2018 roman catholic services? Do [...] >=60 11/25/2018 Black/ mL/min/BSA 12:49 PM CDT Slovenian Comment: ----ADDITIONAL INFORMATION---- Estimated GFR calculated using [...] City/State/ZIP Code Phon e Number [facility] - [address] [place] [address] [facility] (ABNORMAL) Hepatic Function Panel (11/25/2018 11:07 AM CDT) [facility] gist Method Time Signature Bilirubin, Total, S [...] M.D. LAB BLOOD ADD-ON Performing Organization Address [facility] Phon e Number [facility] - [address] (ABNORMAL) PT (Prothrombin Time) with INR (11/25/2018 11:07 AM CDT) [facility] [employer] Method Time Signature Prothrombin 38.4 (H) 9.4 [...] M.D. LAB BLOOD ADD-ON Performing Organization Address [facility] Phon e Number [facility] - [address] (ABNORMAL) CBC without Differential (11/25/2018 11:07 AM CDT) [facility] [employer] Method Time Signature Hemoglobin 14.8 11.6 - [...] [facility] Code Phon e Number [facility] - [address] [place] [address] [facility] documented in this encounter Visit Diagnoses Diagnosis Abnormal Liver Function Test documented in this encounter Additional Health Concerns Assessment Noted Time PHQ-9 Depression Total Score: 11 05/04/2013 4:05 PM CS T documented as of this encounter Care Teams Cemetery Counselor Relationship Specialty Start Date End Date Elsewhere, Pcp PCP - General Internal Medicine 07/27/18 documented as of this encounter
--- OUTSIDE RECORDS SUMMARY | 2022-02-26 09:11 | XMS_ITS | Encounter Summary ---
:1955 Author Organization [facility] Address [address] [place] [address] Care Team Providers Name Role Phone Elsewhere, Pcp Primary Care Provider Unavailable Reason for Visit Reason Onset Date Comments Rapid Heart Rate 10/30/2018 Encounter Details Date Type Department Care Team Description 10/30/2018 Clinical Department of Steven Rapid Heart Ra te Communication Cardiovascular Tracy Orozco, Medicine in [place], .S.N., [facility] [phone] [address] [facility] (Work) [place] [address] Social History Tobacco Use Types Packs/Day Years [...] do you attend gnosticist or Never 2018 druze services? Do you [...] PM CDT I contacted the snf. Dr. Johnston was not available, but I spoke to her nurse. Her vitals over the last few days show consistently elevated heart rate between 110-135 beats per minute. She is asymptomatic other than occasional headache. Her edema is improved. [facility] [...] CDT INFORMATION DISCUSSED Dr. Johnston from a ad terminal makeup operator facility in [place], [place] contacted [facility] regarding Ms. Metcalf. [...] the snf facility's phone number of : [phone]. He said verbal orders can also be [...] documented as of this encounter Care Teams Greenskeeper Laborer Relationship Specialty Start Date End Date Elsewhere, Pcp PCP - General Internal Medicine 07/27/18 documented as of this encounter
--- OUTSIDE RECORDS SUMMARY | 2022-02-26 09:11 | XMS_ITS | Encounter Summary ---
:1955 Author Organization [facility] Address [address] [place] [address] Care Team Providers Name Role Phone Elsewhere, Pcp Primary Care Provider Unavailable Reason for Referral Outpatient (Routine) - Closed Specialty Diagnoses / Referred By Referred To Cont act Procedures Contact Gastroenterology and Diagnoses Abnormal [facility] Bess Monroy [address] [place] [address] Referral ID Status Reason Start Date Expiration Date Visits Requ ested Visits Authorized [id number] Closed 10/21/2018 10/21/2019 1 1 Reason for Visit Outpatient (Routine) - Closed Specialty Diagnoses / Procedures Referred By Contact Refer red To Contact Cardiovascular Disease Nelly Bodega Guanaco Monroy M.D. [address] [place] [address] Referral ID Status Reason Start Date Expiration Date Visits Requ ested Visits Authorized [id number] Closed 09/14/2018 09/14/2019 1 1 Encounter Details Date Type Department Care Team Description 10/21/2018 Office Visit Department of Nelly Flutter Atrial (HCC) (Primary Dx); Cardiovascular Medicine Ayaka Monroy ormal Liver Function Test in [facility] nasim Kellogg 200 [facility] [address] [place] [address] [place], [place] [phone] [address] Social History Tobacco Use Types Packs/Day Years [...] do you attend mormonism or Never 2018 taoist services? Do you [...] regurgitation.She had a most recent admission to [facility] in June for recurrent atrial flutter [...] >=60 11/25/2018 Black/ mL/min/BSA 12:49 PM CDT Kuwaiti Comment: ----ADDITIONAL INFORMATION---- Estimated GFR calculated [...] [facility] [address] [place], [place] [address] [facility] (ABNORMAL) Hepatic Function Panel (11/25/2018 11:07 AM CDT) [facility] Method Time Signature Bilirubin, Total, S 0.4 [...] [facility] [address] [place], [place] [address] [facility] (ABNORMAL) PT (Prothrombin Time) with INR (11/25/2018 11:07 AM CDT) [facility] Time Signature Prothrombin 38.4 (H) 9.4 [...] M.D. LAB BLOOD ADD-ON Performing Organization Address [facility]/ZIP Code Phon e Number [facility] - [address] (ABNORMAL) CBC without Differential (11/25/2018 11:07 AM CDT) [facility] gist Method Time Signature Hemoglobin [...] M.D. LAB BLOOD ADD-ON Performing Organization Address City/[facility]/ZIP Code Phon e Number [facility] - [address] US Abdomen Complete (11/25/2018 10:35 AM [...] documented as of this encounter Care Teams Car Mover Relationship Specialty Start Date End Date Elsewhere, Pcp PCP - General Internal Medicine 07/27/18 documented as of this encounter
--- OUTSIDE RECORDS SUMMARY | 2022-02-26 09:11 | XMS_ITS | Encounter Summary ---
:1955 Author Organization [facility] Address [address] [place] [address] Care Team Providers Name Role Phone Elsewhere, Pcp Primary Care Provider Unavailable Encounter Details Date Type Department Care Team Description 12/11/2018 Hospital Encounter Department of Joseph Verduzco Abnormal Liver Function Test; Laboratory Medicine Becki Caballero, Abnormal Levels Of Other Serum Enzymes and Pathology, Luan Pham. [address], [address] [place] [address] [phone] Social History Tobacco Use Types Packs/Day Years [...] do you attend congregational or Never 2018 voodoo services? Do you [...] Test procedure are in the results section. [id number] Routine 12/11/2018 10:44 Abnormal Liver Re sults [...] Transglutaminase), Antibody, IgA (12/11/2018 10:44 AM CDT) [facility] Method Time Signature Tissue <1.2 [...] [facility] [address] [place], [place] [address] [facility] (ABNORMAL) CMP (Comprehensive [...] >=60 12/11/2018 Black/ mL/min/BSA 12:17 PM CDT Omani Comment: ----ADDITIONAL INFORMATION---- Estimated GFR calculated using [...] M.D. LAB BLOOD ADD-ON Performing Organization Address City/[facility] Phon e Number [facility] - [address] [place] [address] [facility] [place] Ceruloplasmin (12/11/2018 10:44 AM CDT) P athologist Signature Ceruloplasmin, 31.7 20.0 - 51.0 12/11/2018 S mg/dL 12:35 PM CDT Specimen Anatomical Collection Method Collection Time Receive d Time (Source) Location / / Volume Laterality Blood (Blood, 12/11/2018 10:44 12/11/2018 Venous) AM CDT 11:57 AM CDT Joseph Pham M.D. LAB BLOOD ADD-ON Performing Organization Address [facility] Phon e Number [facility] - [address] [place] [address] [facility] [place] (ABNORMAL) MELINDA (Antinuclear Antibodies) (12/11/2018 10:44 AM [...] M.D. LAB BLOOD ADD-ON Performing Organization Address City/[facility]/ZIP Code Phon e Number [facility] [address] [place] [address] [facility] Hepatitis A IgG Ab, [...] - B LOOD ORDERABLES Performing Organization Address [facility] Phon e Number [address] [place] [address] [facility] Smooth Muscle Antibodies (12/11/2018 10:44 AM CDT) athologist [facility] Smooth Muscle Negative Negative 12/12/2018 Antibody, S 2:49 PM CDT Comment: ----ADDITIONAL INFORMATION---- This test was developed and its performa nce characteristics determined by [facility] in a manner consistent with CLIA requirements. This test has not been cleared or approved by the [place] d and Drug Administration. Specimen Anatomical Collection Method Collection Time Receive d Time (Source) Location / / Volume Laterality Blood (Blood, 12/11/2018 10:44 12/11/2018 2:40 Venous) AM CDT PM CDT Joseph Pham M.D. LAB BLOOD ADD-ON Performing Organization Address City/[facility] Phon e Number [address] [place] [address] [facility] HCV Ab Scrn w/Reflex to HCV PCR, Serum (12/11/2018 10:44 AM CDT) athologist [facility] HCV Ab Screen, Negative Negative 12/11/2018 S 3:47 PM CDT Comment: Wimwjt-uc-sxtxia ratio is <1.00 . Specimen Anatomical Collection Method Collection Time Receive d Time (Source) Location / / Volume Laterality Blood (Blood, 12/11/2018 10:44 12/11/2018 2:30 Venous) AM CDT PM CDT Joseph Tirado Becki Pham M.D. LAB MICROBIOLOGY - B LOOD ORDERABLES Performing Organization Address [facility] Phon e Number [address] [place] [address] [facility] HBc Total Ab, Serum [...] - B LOOD ORDERABLES Performing Organization Address [facility] Phon e Number [address] [place] [address] [facility] Hepatitis B Surface Antigen (12/11/2018 10:44 AM CDT) P athologist Signature HBs Antigen, S Negative Negative 12/11/2018 3:29 PM CDT Specimen Anatomical Collection Method Collection Time Receive d Time (Source) Location / / Volume Laterality Blood (Blood, 12/11/2018 10:44 12/11/2018 2:30 Venous) AM CDT PM CDT Joseph Candida Pham M.D. LAB MICROBIOLOGY - B LOOD ORDERABLES Performing Organization Address [facility] Phon e Number [address] [place] [address] [facility] Immunoglobulin M (IgM) (12/11/2018 10:44 AM CDT) [facility] Method Time Signature Immunoglobulin M 74 37 - 286 12/11/2018 (IgM), S mg/dL 5:00 PM CDT Specimen Anatomical Collection Method Collection Time Receive d Time (Source) Location / / Volume Laterality Blood (Blood, 12/11/2018 10:44 12/11/2018 2:37 Venous) AM CDT PM CDT Joseph Pham M.D. LAB BLOOD ADD-ON Performing Organization Address [facility] Code Phon e Number [address] [place] [address] [facility] Immunoglobulin G (IgG) (12/11/2018 10:44 AM CDT) Patholo gist Method Time Signature Immunoglobulin G 1190 767 - 1590 12/11/2018 (IgG), S mg/dL 4:59 PM CDT Specimen Anatomical Collection Method Collection Time Receive d Time (Source) Location / / Volume Laterality Blood (Blood, 12/11/2018 10:44 12/11/2018 2:37 Venous) AM CDT PM CDT Joseph Pham M.D. LAB BLOOD ADD-ON Performing Organization Address [facility] Phon e Number [address] [place] [address] [facility] HBs Antibody, Serum (12/11/2018 [...] - B LOOD ORDERABLES Performing Organization Address [facility] Phon e Number [address] [place] [address] [facility] (ABNORMAL) Celiac Disease Serology Leisenring (12/11/2018 10:44 AM CDT) Component Value Ref [...] LAB BLOOD ADD-ON Performing Organization Address [facility] Phon e Number [address] [place] [address] [facility] Pwoxq-3-Moanshtokwm Phenotype (12/11/2018 10:44 AM CDT) P athologist Signature Dyytw-9-Zccrxdd 131 100 - 190 12/11/2018 psin, S mg/dL 3:46 PM CDT Gvfiz-7-Rftbgjr MM bands 12/14/2018 psin Phenotype 3:10 PM CDT Comment: A single M isoform is detected. In the c ontext of a normal pijhb-8-heldkwqcrvf concentration, this is consistent with an MM phenotype. Specimen Anatomical Collection Method Collection Time Receive d Time (Source) Location / / Volume Laterality Blood (Blood, 12/11/2018 10:44 12/11/2018 2:37 Venous) AM CDT PM CDT Joseph Pham M.D. LAB BLOOD ADD-ON Performing Organization Address City/[facility] Phon e Number [address] [place] [address] [facility] Mitochondrial Antibodies (M2) (12/11/2018 [...] M.D. LAB BLOOD ADD-ON Performing Organization Address City/[facility]/ZIP Code Phon e Number [facility] [address] [place] [address] [facility] Iron and Total Iron-Binding [...] Number [facility] - [address] [place] [address] [facility] [place] Ferritin (12/11/2018 10:44 AM CDT) athologist [facility] Ferritin, S 63 11 - 307 12/11/2018 mcg/L 12:15 PM CDT Specimen Anatomical Collection Method Collection Time Receive d Time (Source) Location / / Volume Laterality Blood (Blood, 12/11/2018 10:44 12/11/2018 Venous) AM CDT 11:05 AM CDT Joseph Pham M.D. LAB BLOOD ADD-ON Performing Organization Address City/[facility]/ZIP Code Phon e Number [facility] - [address] [place] [address] [facility] [place] CBC without Differential (12/11/2018 10:44 AM CDT) [...] Number [facility] - [address] documented in this encounter Visit Diagnoses Diagnosis Abnormal Liver Function Test Abnormal Levels Of Other Serum Enzymes documented in this encounter Additional Health Concerns Assessment Noted Time PHQ-9 Depression Total Score: 11 05/04/2013 4:05 PM CS T documented as of this encounter Care Teams Welder Tack Relationship Specialty Start Date End Date Elsewhere, Pcp PCP - General Internal Medicine 07/27/18 documented as of this encounter
--- OUTSIDE RECORDS SUMMARY | 2022-02-26 09:12 | XMS_ITS | Encounter Summary ---
:1955 Author Organization [facility] Address [address] [place] [address] Care Team Providers Name Role Phone Elsewhere, Pcp Primary Care Provider Unavailable Reason for Referral Outpatient (Routine) - Closed Specialty Diagnoses / Referred By Contact Referred To Contact Procedures Cardiovascular Diseases / Diagnoses Flutter Atrial (HCC) 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) [facility] Luan Monroy [address] [place] [address] Referral ID Status Reason Start Date Expiration Date Visits Requ ested Visits Authorized [id number] Closed 09/14/2018 09/14/2019 1 1 Outpatient (Routine) - Closed Specialty Diagnoses / Procedures Referred By Contact Refer red To Contact [facility] Bess Monroy [address] [place] [address] Referral ID Status Reason Start Date Expiration Date Visits Requ ested Visits Authorized [id number] Closed 09/14/2018 09/14/2019 1 1 Scheduling Instructions With myself in 1 month on a friday af ternoon Reason for Visit Outpatient (Routine) - Closed Specialty Diagnoses / Referred By Contact Referred To Contact Procedures Cardiovascular Diseases / Diagnoses Flutter Atrial (HCC) Oralia Ricks, [facility] Cardiovascular Disease Rod SARABIA. 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 Do you [...] June she was again admitted, thistime at [facility] with recurrent atrial flutter with RVR. [...] care. Since discharge from the hospital at [place], she had another brief admission elsewherefor recurrent [...] when she returns. CT CT Job ID: [id number] documented in this encounter Plan of Treatment [...] with Differential, Blood (10/20/2018 3:02 PM CDT) [facility] Method Time Signature Hemoglobin 12.9 11.6 [...] M.D. LAB BLOOD ADD-ON Performing Organization Address [facility] Phon e Number [facility] - [address] [place] [address] [facility] (ABNORMAL) PT (Prothrombin Time) with [...] M.D. LAB BLOOD ADD-ON Performing Organization Address [facility] Code Phon e Number [facility] - [address] [place] [address] [facility] (ABNORMAL) CMP (Comprehensive Metabolic Panel) [...] >=60 10/20/2018 Black/ mL/min/BSA 4:05 PM CDT Angolan Comment: ----ADDITIONAL INFORMATION---- Estimated GFR calculated using [...] Organization Address City/State/ZIP Code Phon e Number [facility] - [address] [place], [place] [address] [facility] HOLTER MONITOR - IN CLINIC THERAPIST OCCUPATIONAL (10/20/2018 12:14 PM CDT) [facility] gist Method Time Signature VT Runs 0 count HOLTER SENTINEL VE Total Beats 1 count HOLTER SENTINEL VE Percent 0 percent HOLTER Beats SENTINEL VE Max Per [id number] HOLTER Hour Time SENTINEL VE Max Per [...] 0 count HOLTER SENTINEL Min Heart Rate [id number] HOLTER Time SENTINEL Min Heart Rate 40 bpm HOLTER SENTINEL Mean Heart 58 bpm HOLTER Rate SENTINEL Max Heart Rate [id number] HOLTER Time SENTINEL Max Heart Rate 73 bpm HOLTER SENTINEL Bradycardia 0 count HOLTER Runs SENTINEL Analysis Date 20,190,731 HOLTER SENTINEL AF Count 0 count HOLTER SENTINEL Specimen (Source) Anatomical Collection Method Collection Time Re ceived Time Location / / Volume Laterality 10/20/2018 12:13 PM CDT Narrative This result has an attachment that is no t available. Porfirio Villeags M.D. CV CARDIAC SERVICES PROCEDUR ES Performing [...] emptying veloci ty 31 cm/sec. 3. No tddwj-py-hnkf shunt at atrial leve l at rest [...] saline in jection(s) performed during sedation. ??No jvkji-tt-wmli shunt at atrial level at rest or [...] at the request of the primary service now developer. ??Adult probe inserted without difficulty. ??Procedure performed [...] Sedation Narrator or other pertinent record in [facility] for addit ional procedure and sedation [...] emptying veloci ty 31 cm/sec. 3. No yanjs-vp-wuyq shunt at atrial leve l at rest [...] saline inje ction(s) performed during sedation. No plywr-ii-dokf shunt at atrial level at rest or with Va lsalva release. The left atrial appendage thrombus is no longer seen. A tiny mobile echodensit y is now seen which has similar tissue density to the surrounding myocardium. Differential inc ludes tiny organized thrombus vs normal left atrial appendage trabeculation. No pericardial effusion. PROCEDURE Transesophageal echocardiogram performed at the request of the primary service now developer. Adult probe inserted without difficulty. Procedure performed [...] Sedation Narrator or other pertinent record in [employer] for addit ional procedure and sedation information. [...] documented as of this encounter Care Teams Biscuitware Brusher Relationship Specialty Start Date End Date Elsewhere, Pcp PCP - General Internal Medicine 07/27/18 documented as of this encounter
--- OUTSIDE RECORDS SUMMARY | 2022-02-26 09:12 | XMS_ITS | Encounter Summary ---
:1955 Author Organization [facility] Address [address] [place] [address] Care Team Providers Name Role Phone Bruce, Vianney Caballero APRN, C.N.P., M.S.N. Primary Care Provider [phone] Reason for Visit Reason Comments Anticoagulation Encounter Details Date Type Department Care Team Description 07/17/2018 Documentation Division of [facility] Krishna Marreroroxana Internal Medicine, Romy Fernández APRN, [facility], in C.N.P. [place], [place] [address] [place] [phone] Social History Tobacco Use Types Packs/Day [...] do you attend latter-day or Never 2018 jew services? Do you [...] p.o. daily RECHECK INR: 07/20/2018; POC at [facility] documented in this encounter Plan of Treatment Not on filedocumented as of this encounter Visit Diagnoses Not on filedocumented in this encounter Additional Health Concerns Assessment Noted Time PHQ-9 Depression Total Score: 11 05/04/2013 4:05 PM CS T documented as of this encounter Care Teams Technical Systems Architect Relationship Specialty Start Date End Date Vianney Barrera APRN, C.N.P., PCP - General Internal Medicine 07/06/18 07/26/18 M.S.N. [address] [place] [address] documented as of this encounter
--- OUTSIDE RECORDS SUMMARY | 2022-02-26 09:12 | XMS_ITS | Encounter Summary ---
:1955 Author Organization [facility] Address [address] [place] [address] Care Team Providers Name Role Phone Vianney Barrera APRN, C.NMarcel., M.S.N. Primary Care Provider [phone] Reason for Visit Reason Comments Anticoagulation Encounter Details Date Type Department Care Team Description 07/20/2018 Documentation Division of [facility] [place], Vianney Caballero APRN , Anticoagulation Internal Medicine, C.N.P., M.S.N . [facility] in [address] [place] [address] [place] [address] [phone] Social History Tobacco Use Types Packs/Day Years [...] do you attend synagogue or Never 2018 christianity services? Do you [...] as of this encounter Care Teams Production Dispatcher Relationship Specialty Start Date End Date Vianney Barrera APRN, C.N.P., PCP - General Internal Medicine 07/06/18 07/26/18 M.S.N. [address] [place] [phone] documented as of this encounter
--- OUTSIDE RECORDS SUMMARY | 2022-02-26 09:12 | XMS_ITS | Encounter Summary ---
:1955 Author Organization [facility] Address [address] [place] [address] Care Team Providers Name Role Phone Vianney Barrera APRN, C.NMarcel., M.S.N. Primary Care Provider [phone] Reason for Visit Reason Comments Anticoagulation Encounter Details Date Type Department Care Team Description 07/13/2018 Documentation Division of [facility] [place], Vianney Caballero APRN , Anticoagulation Internal Medicine, C.N.P., M.S.N . [facility] in [address] [place] [address] [place] [address] [phone] Social History Tobacco Use Types Packs/Day Years [...] do you attend zoroastrian or Never 2018 moravian services? Do you [...] daily RECHECK INR: 07/15/2018; POC at [facility] documented in this encounter Plan of Treatment Not on filedocumented as of this encounter Visit Diagnoses Not on filedocumented in this encounter Additional Health Concerns Assessment Noted Time PHQ-9 Depression Total Score: 11 05/04/2013 4:05 PM CS T documented as of this encounter Care Teams Chainstitch Sewing Machine Operator Relationship Specialty Start Date End Date Vianney Barrera APRN, C.N.P., PCP - General Internal Medicine 07/06/18 07/26/18 M.S.N. [address] [place] [address] documented as of this encounter
--- OUTSIDE RECORDS SUMMARY | 2022-02-26 09:12 | XMS_ITS | Encounter Summary ---
:1955 Author Organization [facility] Address [address] [place] [address] Care Team Providers Name Role Phone Vianney Barrera APRN, C.N.P., M.S.N. Primary Care Provider [phone] Encounter Details Date Type Department Care Team Description 07/07/2018 Documentation Division of [facility] Vianney Barrera APRN , Internal Medicine, Herb France, M.S.NEdilma [facility], in [address] [place] [phone] [place] [address] [phone] Social History Tobacco Use Types Packs/Day Years [...] do you attend adventism or Never 2018 yarsanism services? Do you [...] p.o. daily RECHECK INR: 07/09/2018; POC at [facility] documented in this encounter Plan of Treatment Not on filedocumented as of this encounter Visit Diagnoses Not on filedocumented in this encounter Additional Health Concerns Assessment Noted Time PHQ-9 Depression Total Score: 11 05/04/2013 4:05 PM CS T documented as of this encounter Care Teams Top Loader Relationship Specialty Start Date End Date Vianney Barrera APRN, C.N.P., PCP - General Internal Medicine 07/06/18 07/26/18 M.S.N. [address] [place] [address] documented as of this encounter
--- OUTSIDE RECORDS SUMMARY | 2022-02-26 09:12 | XMS_ITS | Encounter Summary ---
:1955 Author Organization [facility] Address [address] [place] [address] Care Team Providers Name Role Phone Elsewhere, Pcp Primary Care Provider Unavailable Encounter Details Date Type Department Care Team Description 10/20/2018 Hospital Encounter Department of Siontis, Flutter Atrial (HCC); Laboratory Medicine Porfirio, Thrombu s Atrial (HCC); and Pathology, M.D. 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 Do you [...] Systolic (Congestive) And Diastolic (Congestive) Heart Failure ([facility]) CBC WITH DIFFERENTIAL, Routine 10/20/2018 3:02 PM [...] with Differential, Blood (10/20/2018 3:02 PM CDT) [facility] Method Time Signature Hemoglobin 12.9 11.6 - [...] Organization Address City/State/ZIP Code Phon e Number [facility] - [address] [place], [place] [address] [facility] (ABNORMAL) PT (Prothrombin Time) with INR (10/20/2018 3:02 PM CDT) [facility] Method Time Signature Prothrombin 25.4 (H) 9.4 [...] Organization Address City/State/ZIP Code Phon e Number [facility] - [address] [place], [place] [address] [facility] [...] >=60 10/20/2018 Black/ mL/min/BSA 4:05 PM CDT Georgian Comment: ----ADDITIONAL INFORMATION---- Estimated GFR calculated [...] Organization Address City/State/ZIP Code Phon e Number [facility] - [address] documented in this encounter Visit Diagnoses Diagnosis Flutter Atrial (HCC) Thrombus Atrial (HCC) 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
--- OUTSIDE RECORDS SUMMARY | 2022-02-26 09:12 | XMS_ITS | Encounter Summary ---
:1955 Author Organization [facility] Address [address] [place] [address] Care Team Providers Name Role Phone Vianney Barrera APRN C.N.P., M.S.N. Primary Care Provider [phone] Encounter Details Date Type Department Care Team Description 07/23/2018 External Outreach Division of Diana Gabriel Flucaitliner Atrial ([facility]); Community Internal D, P.A.-C. Hypertensive Heart Disease With Heart Fa ilure ([facility]); [place] [address] [place] [address] Thrombus Atrial ([facility]) [facility], in [facility] [address] [place] [phone] [place] [address] (Work) [place], [place] [phone] [address] (Fax) [phone] Social History Tobacco Use Types Packs/Day Years [...] do you attend mormon or Never 2018 adventist services? Do you [...] P.A.-C. - 07/23/2018 2:13 PM CDT REFERRAL [facility] CHIEF COMPLAINT/PURPOSE OF VISIT Discharge from [facility] (Short-term rehab) HISTORY OF PRESENT ILLNESS Ms. Metcalf is a 63 y.o. woman, recently hospitalized June 29 - 2018, related to recurrent atrial flutter. Patient discharged to [facility] for short-term rehabilitation. Patient has now completed goals of therapy and is planning to discharge back to her home in [place] on July 25, 2018. #1 Flutter Atrial (HCC) Overview: -admitted at the [facility] from 06/22/2018 - 06/23/2018, [...] to discharge back to her home in [place], [place] on 07/24/18, where she resides with [...] a front-wheeled walker. Have asked the facility [facility] to set the patient up with home health services/OT prior to her discharge, as patient did not appear to be cognizant of the providers for these services. Did stress the importance of following up with both the in-home OT as recommended, and followup with PCP. Recommend patient followup with her primary care provider at [facility] in approximately 2 weeks for [...] documented as of this encounter Care Teams Plasterer Maintenance Relationship Specialty Start Date End Date Vianney Barrera APRN, C.N.P., PCP - General Internal Medicine 07/06/18 07/26/18 M.S.N. [address] [place] [address] documented as of this encounter
--- OUTSIDE RECORDS SUMMARY | 2022-02-26 09:12 | XMS_ITS | Encounter Summary ---
:1955 Author Organization [facility] Address [address] [place] [address] Care Team Providers Name Role Phone Vianney Barrera APRN, C.N.P., M.S.N. Primary Care Provider [phone] Reason for Visit Reason Onset Date Comments Please call to verify Custodial Discharge 07/20/2018 Encounter Details Date Type Department Care Team Description 07/20/2018 Clinical Communication Division of Vianney Barrera Plea se call to [facility] [place] SARABIA, irish [facility] guadalupe [facility], in [address] [place] [phone] [place] [address] [place], [place] (Work) [phone] Social History Tobacco Use [...] do you attend mormonism or Never 2018 latter-day services? Do you [...] PM CDT Patient is to discharge from [facility] on 07/25, communication was shared on 07/20 with the desk staff to fax an updated appointment guide to the facility. Patient is not on the Pending [facility] SN[facility] list. Update PCP/ Report/ Registry and remove Comment and Patient type. documented in this encounter Plan of Treatment Not on filedocumented as of this encounter Visit Diagnoses Not on filedocumented in this encounter Additional Health Concerns Assessment Noted Time PHQ-9 Depression Total Score: 11 05/04/2013 4:05 PM CS T documented as of this encounter Care Teams Reproduction Production Manager Relationship Specialty Start Date End Date Vianney Barrera APRN, C.N.P., PCP - General Internal Medicine 07/06/18 07/26/18 M.S.N. [address] [place] [address] documented as of this encounter
--- OUTSIDE RECORDS SUMMARY | 2022-02-26 09:12 | XMS_ITS | Encounter Summary ---
:1955 Author Organization [facility] Address [address] [place] [address] Care Team Providers Name Role Phone Elsewhere, Pcp Primary Care Provider Unavailable Encounter Details Date Type Department Care Team Description 10/20/2018 Hospital Encounter Department of Sondra Villegas On Chronic Cardiovascular Diseases Archana Monroy bined Systolic in [facility] nasim Kellogg (Congestive) And [address] Diastolic [place], [place] (Congestive) Heart [address] Failure (HCC) [phone] Social History Tobacco Use Types Packs/Day Years [...] do you attend worship or Never 2018 sikh services? Do you [...] ECHO DOPPLER COLOR (10/20/2018 2:26 PM CDT) [facility] gist Method Time Signature Ejection Fraction [...] motion abnormalities, estimated ejection fraction 55% with fuxh-sd-rzhk variability. 3. Mild right ventricular enlargement wi [...] ventricular ejection fra ction 55 % with huxz-ri-kbcc variability. ??No regional wall motion abnormalities. ??Indetermina [...] motion abnormalities, estimated ejection fraction 55% with hryo-ry-adne variability. 3. Mild right ventricular enlargement wi [...] ventricular ejection fra ction 55 % with bnaa-mx-qwco variability. No regional wall motion abnormalities. Indeterminate [...] documented as of this encounter Care Teams Radiologic Technician Relationship Specialty Start Date End Date Elsewhere, Pcp PCP - General Internal Medicine 07/27/18 documented as of this encounter
--- OUTSIDE RECORDS SUMMARY | 2022-02-26 09:12 | XMS_ITS | Encounter Summary ---
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 Do you belong to any clubs or No 02/26/2019 organizations such as religion groups, unions, fraZeppelin or athletic groups, or school groups? How [...] Flutter Atrial (HCC) Results for this CLINIC SEAM SEWER CDT Thrombus Atrial procedure are in (HCC) the results Acute On Chronic section. Combined Systolic (Congestive) And Diastolic (Congestive) Heart Failure (HCC) documented in this encounter Results HOLTER MONITOR - IN CLINIC SEAM SEWER (10/20/2018 12:14 PM CDT) [facility] gist Method Time Signature VT Runs 0 count HOLTER SENTINEL VE Total Beats 1 count HOLTER SENTINEL VE Percent 0 percent HOLTER Beats SENTINEL VE Max Per [id number] HOLTER Hour Time SENTINEL VE Max Per 1 count HOLTER Hour SENTINEL Tachycardia 0 count HOLTER Runs SENTINEL SVT Runs 3 count HOLTER SENTINEL SVT Max Rate 123 bpm HOLTER SENTINEL SVE Total 3,120 count HOLTER Beats SENTINEL SVE Percent 4 percent HOLTER Beats SENTINEL SVE Max Per [id number] HOLTER Hour Time SENTINEL SVE Max Per 809 count HOLTER Hour SENTINEL Recording Date HOLTER SENTINEL Holter Pauses 0 count HOLTER SENTINEL Min Heart Rate [id number] HOLTER Time SENTINEL Min Heart Rate 40 bpm HOLTER SENTINEL Mean Heart 58 bpm HOLTER Rate SENTINEL Max Heart Rate [id number] HOLTER Time SENTINEL Max Heart Rate 73 [...] documented as of this encounter Care Teams Continuous Mining Machine Operator Relationship Specialty Start Date End Date Elsewhere, Pcp PCP - General Internal Medicine 07/27/18 documented as of this encounter
--- OUTSIDE RECORDS SUMMARY | 2022-02-26 09:12 | XMS_ITS | Encounter Summary ---
:1955 Author Organization [facility] Address [address] [place] [address] Care Team Providers Name Role Phone Elsewhere, Pcp Primary Care Provider Unavailable Reason for Visit Reason Onset Date Comments Appointment 09/15/2018 Encounter Details Date Type Department Care Team Description 09/15/2018 Clinical Communication Department of Manisha Villegas Cardiovascular Medicine Porfirio in [facility] nasim Kellogg [address] [facility] [address] [place] [address] [place], [place] [phone] Social History Tobacco Use Types Packs/Day Years [...] CDT Hi, I got a call from [facility] by a Sierra. She was calling this patient's appts. She was wondering if the patient can come on a and Friday? Can you please call her back [phone]. Thanks I didn't know if there was any notes on this pt. documented in this encounter Plan of Treatment Not on filedocumented as of this encounter Visit Diagnoses Not on filedocumented in this encounter Additional Health Concerns Assessment Noted Time PHQ-9 Depression Total Score: 11 05/04/2013 4:05 PM CS T documented as of this encounter Care Teams Psychology Instructor Relationship Specialty Start Date End Date Elsewhere, Pcp PCP - General Internal Medicine 07/27/18 documented as of this encounter
--- OUTSIDE RECORDS SUMMARY | 2022-02-26 09:12 | XMS_ITS | Encounter Summary ---
:1955 Author Organization [facility] Address [address] [place] [address] Care Team Providers Name Role Phone Elsewhere, Pcp Primary Care Provider Unavailable Encounter Details Date Type Department Care Team Description 09/01/2018 Clinical Communication Department of Rossi [place] Cardiovascular Medicine Stacy, P.AEdilma- CEdilma in [facility] rotary rig engine operator [address] [facility] [address] [place] [address] [phone] Social History Tobacco Use Types Packs/Day Years [...] do you attend latter-day or Never 2018 oriental orthodox services? Do [...] as of this encounter Care Teams Psychology Assistant Relationship Specialty Start Date End Date Elsewhere, Pcp PCP - General Internal Medicine 07/27/18 documented as of this encounter
--- OUTSIDE RECORDS SUMMARY | 2022-02-26 09:12 | XMS_ITS | Encounter Summary ---
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 Do you belong to any clubs or No 02/26/2019 organizations such as judaism groups, unions, fraVoipSwitch or athletic groups, or school groups? How [...] emptying veloci ty 31 cm/sec. 3. No tyyzo-xj-wsyg shunt at atrial leve l at rest [...] saline in jection(s) performed during sedation. ??No eibre-tz-ggwi shunt at atrial level at rest or with Va lsalva release. ??The left atrial appendage thrombus is no longer seen. A tiny mobile echodensit y is now seen which has similar tissue density to the surrounding myocardium. Differential inc ludes tiny organized thrombus vs normal left atrial appendage trabeculation. ??No pericardia l effusion. ??PROCEDURE ??Transesophageal echocardiogram performed at the request of the primary personal care service provider. ??Adult probe inserted without difficulty. ??Procedure performed [...] Sedation Narrator or other pertinent record in [employer] for addit ional procedure and sedation information. [...] emptying veloci ty 31 cm/sec. 3. No icppp-qi-cple shunt at atrial leve l at rest [...] saline inje ction(s) performed during sedation. No lkebq-pz-zlfi shunt at atrial level at rest or with Va lsalva release. The left atrial appendage thrombus is no longer seen. A tiny mobile echodensit y is now seen which has similar tissue density to the surrounding myocardium. Differential inc ludes tiny organized thrombus vs normal left atrial appendage trabeculation. No pericardial effusion. PROCEDURE Transesophageal echocardiogram performed at the request of the primary personal care service provider. Adult probe inserted without difficulty. Procedure performed [...] or other pertinent record in [facility] for addit ional procedure and sedation information. [...] documented as of this encounter Care Teams Lap Machine Tender Relationship Specialty Start Date End Date Elsewhere, Pcp PCP - General Internal Medicine 07/27/18 documented as of this encounter
--- OUTSIDE RECORDS SUMMARY | 2022-02-26 09:12 | XMS_ITS | Encounter Summary ---
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) [facility] Cardiovascular Disease Luan Monroy [address] [place] [address] Referral ID Status Reason Start Date Expiration Date Visits Requ ested Visits Authorized [id number] Closed 09/14/2018 09/14/2019 1 1 Encounter Details Date Type Department Care Team Description 10/21/2018 Comprehensive Visit Department of Javier Kaiser Acute O n Chronic Combined Systolic (Congestive) And Diastolic (Congestive) Heart Failure (HCC) (Primary Dx); Cardiovascular Bess Salinas Apnea Sleep Obstructive; Medicine in 200 [facility] Flutter Atrial (HCC); [facility] Hypertensive Heart Disease With Heart Fa ilure (HCC); [address] [place] [address], Thrombus Atrial (HCC); [facility] Diabetes Melli tus Type 2 Without Complication (HCC); [id number] [address] Hyperlipidemia On Treatment; [phone] Other Dyspnea (Work) Social History Tobacco Use [...] do you attend caodaism or Never 2018 mandaen services? Do you [...] file Gets together: Not on file Attends mandaen service: Not on file Active member of [...] evaluated locally and she was admitted [facility] for AFib with RVR and [...] juice discharge June. Patient was here at [facility] for an additional opinion when she was [...] file Gets together: Not on file Attends mandaen service: Not on file Active member of [...] motion abnormalities, estimated ejection fraction 55% with orrw-bw-broj variability. 3. Mild right ventricular enlargement with [...] appendage emptying velocity 31 cm/sec. 3. No culfe-mc-vakf shunt at atrial level at rest or [...] ECHO DOPPLER COLOR (10/20/2018 2:26 PM CDT) [facility] Method Time Signature Ejection Fraction 55 [...] motion abnormalities, estimated ejection fraction 55% with rsiv-ya-dziv variability. 3. Mild right ventricular enlargement wi [...] ventricular ejection fra ction 55 % with lazd-ws-oyot variability. ??No regional wall motion abnormalities. ??Indetermina [...] motion abnormalities, estimated ejection fraction 55% with vnab-xs-zpob variability. 3. Mild right ventricular enlargement wi [...] ventricular ejection fra ction 55 % with xjpa-ss-fjwc variability. No regional wall motion abnormalities. Indeterminate [...] documented as of this encounter Care Teams Fabric Pattern Grader Relationship Specialty Start Date End Date Elsewhere, Pcp PCP - General Internal Medicine 07/27/18 documented as of this encounter
--- OUTSIDE RECORDS SUMMARY | 2022-02-26 09:12 | XMS_ITS | Encounter Summary ---
:1955 Author Organization [facility] Address [address] [place] [address] Care Team Providers Name Role Phone Vianney Barrera APRN, C.N.P., M.S.N. Primary Care Provider [phone] Reason for Visit Appointment Request (Routine) - Closed Specialty Diagnoses / Procedures Referred By Contact Refer red To Contact Community Internal [facility] Referral ID Status Reason Start Date Expiration Date Visits Requ ested Visits Authorized [id number] Closed 07/06/2018 07/06/2019 1 1 Encounter Details Date Type Department Care Team Description 07/08/2018 External Outreach Division of Cody Keyes ([facility]) (Primary Dx); Community Internal Della Leon, Thrombus Atrial ([facility]); Medicine, Herb Marshall, B.ChEdilma, Hypertensi ve Heart Disease With Heart Failure ([facility]); [facility], in Bess Mann Diabetes Mellitus Type 2 Without Complic ation ([facility]); [place], [facility] [address] [facility] Migraine Headache; [place], [place] Hyperlipidemia On Treatment; [address] [facility] [address] Fibromyalgia; [place], [place] [phone] Other Specifie d Anxiety Disorders; [phone] (Work) Apnea Sleep Obstructive; [phone] Gastroesophagea l Reflux Disease Without Esophagitis; (Fax) [...] do you attend scientology or Never 2018 evangelical services? Do you [...] seen today for an admission visit at [facility] (post-acute care in [facility]). HISTORY OF PRESENT ILLNESS Ms. Metcalf is 63 years old and lives in [place]. She has multiple medical comorbidities including recurrent [...] were reviewed and updated as appropriate in [facility]:allergies, current medications, medical/surgical history, social [...] breath., Disp: 1 Inhaler, Rfl: 11 ??? xpnjynh-pcljfksonqqfb-sbifzzqf (EXCEDRIN MIGRAINE) 250-250-65 mg per tablet, Take [...] Flutter Atrial (HCC) Overview: -admitted at the [facility] from 06/22/2018 - 06/23/2018, [...] documented as of this encounter Care Teams Analog Ic Design Engineer Relationship Specialty Start Date End Date Vianney Barrera APRN, C.N.P., PCP - General Internal Medicine 07/06/18 07/26/18 M.S.N. [address] [place] [address] documented as of this encounter
--- OUTSIDE RECORDS SUMMARY | 2022-02-26 09:12 | XMS_ITS | Encounter Summary ---
:1955 Author Organization [facility] Address [address] [place] [address] Care Team Providers Name Role Phone Vianney Barrera APRN, C.N.P., M.S.N. Primary Care Provider [phone] Encounter Details Date Type Department Care Team Description 07/07/2018 Orders Only Division of [facility] Vianney Barrera APRN, Internal Medicine, Herb France, M.S.NEdilma [facility], in [address] [place] [phone] [place] [address] [phone] Social History Tobacco Use Types Packs/Day Years [...] often do you attend anabaptism or Never 12/06/ 2019 amish services? Do you belong to any [...] as of this encounter Care Teams Visual Artist Relationship Specialty Start Date End Date Vianney Barrera APRN, C.N.PEdilma, PCP - General Internal Medicine 07/06/18 07/26/18 M.S.N. [address] [place] [address] documented as of this encounter
--- OUTSIDE RECORDS SUMMARY | 2022-02-26 09:12 | XMS_ITS | Encounter Summary ---
:1955 Author Organization [facility] Address [address] [place] [address] Care Team Providers Name Role Phone Bruce, Vianney Caballero APRN, C.N.P., M.S.N. Primary Care Provider [phone] Reason for Visit Reason Comments Anticoagulation Encounter Details Date Type Department Care Team Description 07/09/2018 Documentation Division of [facility] Krishna Marreroroxana Internal Medicine, Romy Fernández APRN, [facility], in C.N.P. [place], [place] [address] [place] [phone] Social History Tobacco Use Types Packs/Day [...] or relatives? How often do you attend muslim or Never 2018 sabianism services? Do you belong to any clubs or No 02/26/2019 organizations such as muslim groups, unions, fraternal or athletic groups, or [...] p.o. daily RECHECK INR: 07/13/2018; POC at [facility] documented in this encounter Plan of Treatment Not on filedocumented as of this encounter Visit Diagnoses Not on filedocumented in this encounter Additional Health Concerns Assessment Noted Time PHQ-9 Depression Total Score: 11 05/04/2013 4:05 PM CS T documented as of this encounter Care Teams Delivery Stock Clerk Relationship Specialty Start Date End Date Vianney Barrera APRN, C.N.P., PCP - General Internal Medicine 07/06/18 07/26/18 M.S.N. [address] [place] [phone] documented as of this encounter
--- OUTSIDE RECORDS SUMMARY | 2022-02-26 09:12 | XMS_ITS | Encounter Summary ---
:1955 Author Organization [facility] Address [address] [place] [address] Care Team Providers Name Role Phone Bruce, Vianney Caballero APRN C.N.P., M.S.N. Primary Care Provider [phone] Reason for Visit Reason Comments Anticoagulation management Encounter Details Date Type Department Care Team Description 07/22/2018 Documentation Division of [facility] [address] [place] [address] in [facility] [phone] [place] [phone] [place] [address] (Work) [place], [place] [phone] (Fax) [phone] Social History Tobacco Use Types Packs/Day Years [...] do you attend anabaptist or Never 2018 mandaeism services? Do you [...] documented as of this encounter Care Teams Necktie Operator Pockets And Pieces Relationship Specialty Start Date End Date Vianney Barrera APRN, C.N.P., PCP - General Internal Medicine 07/06/18 07/26/18 M.S.N. [address] [place] [phone] documented as of this encounter
--- OUTSIDE RECORDS SUMMARY | 2022-02-26 09:12 | XMS_ITS | Encounter Summary ---
:[address] [facility] Address [address] [place] [address] Care Team Providers Name Role Phone Bruce, Vianney Caballero APRN C.N.P., M.S.N. Primary Care Provider [phone] Reason for Visit Reason Comments CTP Eligibility Encounter Details Date Type Department Care Team Description 07/07/2018 Patient Outreach Division of [facility] Palomo Hurd, CTP Eligibility Internal Medicine, [facility] in [address] [place] [phone] [place] [phone] Social History Tobacco Use Types Packs/Day Years [...] you attend latter day or Never 2018 mu-ism services? Do you [...] as of this encounter Care Teams Buckle Frame Shaper Relationship Specialty Start Date End Date Vianney Barrera APRN, C.N.P., PCP - General Internal Medicine 07/06/18 07/26/18 M.S.N. [address] [place] [phone] documented as of this encounter
--- OUTSIDE RECORDS SUMMARY | 2022-02-26 09:12 | XMS_ITS | Encounter Summary ---
:1955 Author Organization [facility] Address [address] [place] [address] Care Team Providers Name Role Phone Vianney Barrera APRN, C.NMarcel., M.S.N. Primary Care Provider [phone] Reason for Visit Reason Comments Anticoagulation Encounter Details Date Type Department Care Team Description 07/15/2018 Documentation Division of [facility], Vianney Caballero APRN , Anticoagulation Internal Medicine, C.N.P., M.S.N . [facility] in [address] [place] [phone] [place] [phone] [phone] Social History Tobacco Use Types Packs/Day Years [...] do you attend mandaen or Never 2018 jewish services? Do you [...] daily RECHECK INR: 07/17/2018; POC at [facility] documented in this encounter Plan of Treatment Not on filedocumented as of this encounter Visit Diagnoses Not on filedocumented in this encounter Additional Health Concerns Assessment Noted Time PHQ-9 Depression Total Score: 11 05/04/2013 4:05 PM CS T documented as of this encounter Care Teams Utility Locator Relationship Specialty Start Date End Date Vianney Barrera APRN, C.N.P., PCP - General Internal Medicine 07/06/18 07/26/18 M.S.N. [address] [place] [address] documented as of this encounter
--- OUTSIDE RECORDS SUMMARY | 2022-02-26 09:12 | XMS_ITS | Encounter Summary ---
:1955 Author Organization [facility] Address [address] [place] [address] Care Team Providers Name Role Phone Elsewhere, Pcp Primary Care Provider Unavailable Reason for Visit Reason Comments Medication Visit Encounter Details Date Type Department Care Team Description 07/20/2018 Documentation Division of [facility] Cathleen, Medication Visit Internal Medicine, Luan Diaz. Estevez, [facility], in [address] [place] [address] [place] [phone] [place] [phone] [phone] Social History Tobacco Use Types Packs/Day Years [...] many times do you More than three jvaon es a week 03/30/2020 talk on the phone with family, friends, or neighbors? How often do you get together with friends More than three t imes a week 03/30/2020 or relatives? How often do you attend gnosticist or Never 2018 quaker services? Do you [...] 11:39 PM CDT Contacted by Jyothi at [facility] for missed coumadin dose this last [...] documented as of this encounter Care Teams Used Car Renovator Relationship Specialty Start Date End Date Elsewhere, Pcp PCP - General Internal Medicine 07/27/18 documented as of this encounter
--- OUTSIDE RECORDS SUMMARY | 2022-02-26 09:12 | XMS_ITS | Encounter Summary ---
:1955 Author Organization [facility] Address [address] [place] [address] Care Team Providers Name Role Phone Vianney Barrera APRN, C.N.P., M.S.N. Primary Care Provider [phone] Reason for Visit Reason Comments Anticoagulation Encounter Details Date Type Department Care Team Description 07/24/2018 Documentation Division of [facility] Krishna Marreroroxana Internal Medicine, Romy Fernández APRN, [facility], in C.N.P. [place], [place] [address] [place] [phone] Social History Tobacco Use Types Packs/Day [...] do you attend taoist or Never 2018 confucianist services? Do you [...] 07/27/2018 Since patient will be discharging from [facility] 07/25/2018, she needs to have next INR scheduled through primary care provider. INR due 07/27/2018. documented in this encounter Plan of Treatment Not on filedocumented as of this encounter Visit Diagnoses Not on filedocumented in this encounter Additional Health Concerns Assessment Noted Time PHQ-9 Depression Total Score: 11 05/04/2013 4:05 PM CS T documented as of this encounter Care Teams Deputy Director Of Public Works Relationship Specialty Start Date End Date Vianney Barrera APRN, C.N.P., PCP - General Internal Medicine 07/06/18 07/26/18 M.S.N. [address] [place] [address] documented as of this encounter
--- OUTSIDE RECORDS SUMMARY | 2022-02-26 09:13 | XMS_ITS | Encounter Summary ---
:1955 Author Organization [facility] Address [address] [place] [address] Care Team Providers Name Role Phone Unavailable [...] do you attend islam or Never 2018 oriental orthodox services? Do [...]
--- OUTSIDE RECORDS SUMMARY | 2022-02-26 09:13 | XMS_ITS | Encounter Summary ---
:1955 Author Organization [facility] Address [address] [place] [address] Care Team Providers Name Role Phone Unavailable [...] you attend jehovah's witness or Never 2018 confucianism services? Do you [...]
--- OUTSIDE RECORDS SUMMARY | 2022-02-26 09:13 | XMS_ITS | Encounter Summary ---
:1955 Author Organization [facility] Address [address] [place] [address] Care Team Providers Name Role Phone Unavailable Primary Care Provider Unavailable Encounter Details Date Type Department Care Team Description 05/04/2013 Hospital Encounter HX RST FIBRO AHP OP [facility], Marlene bangura A, R.N. [address] [place] [phone] Social History Tobacco Use Types Packs/Day Years [...]
--- OUTSIDE RECORDS SUMMARY | 2022-02-26 09:13 | XMS_ITS | Encounter Summary ---
:1955 Author Organization [facility] Address [address] [place] [address] Care Team Providers Name Role Phone Vianney Barrera APRN, C.N.P., M.S.N. Primary Care Provider [phone] Encounter Details Date Type Department Care Team Description 06/29/2018 - Hospital Encounter [facility] StaceyBola thompson Renita Nathan.B.S. [address] [place] [id number] Flutter Atrial (HCC) (Primary Dx); [facility]. [facility] Functional Status; [facility], Fourth Floor [address] [place] [phone] Social History Tobacco Use Types Packs/Day [...] do you attend orthodoxy or Never 2018 sabianism services? Do you [...] Petra Dillard M.D. Discharge Provider Team: T [facility] PRINCIPAL DIAGNOSIS Flutter Atrial (HCC) DISMISSAL [...] y.o. female who was admitted to the [facility] for management of atrial flutter. She has a past medical history of recurrent atrial flutter, hypertension, chronic diastolic heart failure, hyperlipidemia, depression with anxiety and dependent personality disorder. She was recently admitted at the [facility] from 06/22/2018 - [...] weakness and decreased caregiver support at home. custodial facility placement was recommended post-discharge. Social work assisted with discharge planning. Patient discharged in stable condition on 07/06/2018 to [facility]. DIAGNOSTIC TESTS EC07/03/2018 Atrial flutter with [...] warfarin Dixon Iris Roula Home Medication Instructions THOMAS:[id number] Printed on:07/06/18 7031 Medication Information acetaminophen (TYLENOL) 500 mg tablet Take 2 tablets (1,000 mg total) by mouth every 6 (six) hours as needed for pain or fever. albuterol (PROAIR HFA) 90 mcg/actuation inhaler Inhale 1-2 puffs every 4 (four) hours as needed for shortness of breath. ymnecbq-adevxmseumdar-kedyfhrw (EXCEDRIN MIGRAINE) 250-250-65 mg per tablet Take [...] atrial thrombus; INR goal 2.5-3.5. DISCHARGE DISPOSITION: Correction Facility [3] CONDITION ON DISCHARGE: Stable. DIET [...] AM CDT You were discharged from the [facility]. Please [...] on 07/02/2018 by Tommy Rogers Contact information: [facility], [address], 07/03/2018 I have reviewed & agree with analysis and recommendations; Ally Canela P.T., D.P.T. Discharge Instr - Non Riley Follow-UpsFoKellee perales - 07/01/2018 10:11 AM CDT * Take a copy of your dismissal paperwork with you to your appointments. * BORUP MD June: 11:00 a.m. - Dr. Radha Parish, care provider, hospital follow up visit, at [facility] [place]. [facility] [place], [place] You may have outpatient appointments at [facility] that changed during your hospitalization. Refer to your [facility] Patient Appointment Guide (PAG) for the most current schedule of appointments anddetails instructions of tests / procedures. Call [phone] if you did not receive a PAG or need to CANCEL any [facility] appointment(s). documented in this encounter Medications at [...] 6 hours PRN 07/06/18 0841 07/06/18 0000 kgegdpq-faslysrvcwmkg-wxefwqve (EXCEDRIN MIGRAINE) 250-250-65 mg per tablet 1-2 tablet oral As needed 07/06/18 0841 06/29/18 1816 acetaminophen tablet 1,000 mg (TYLENOL) Comments: Use for patients with no hepatic disease 1,000 mg oral Every 6 hours PRN 06/29/18 1817 Potentiating Start Dose/Rate Route Frequency Ordered Stop 07/06/18 0000 acetaminophen (TYLENOL) 500 mg tablet 1,000 mg oral Every 6 hours PRN 07/06/18 0841 07/06/18 0000 gsvwnti-abggkzeblsjmp-nrlfcssf (EXCEDRIN MIGRAINE) 250-250-65 mg per tablet 1-2 [...] finding with goal INR 2.5-3.5 per business transformation consultant. INR is therapeutic at 2.7 after [...] per service. Valerie Myers Pharm.D., R.Ph. Contact [phone] with any questions about this note. Petra [...] finding with goal INR 2.5-3.5 per business transformation consultant. INR is therapeutic at 2.7 after [...] date/range tbd Lissette Breen, Pharm.DEdilma, R.Ph. Contact [phone] with any questions about this note. Petra [...] finding with goal INR 2.5-3.5 per business transformation consultant. Patient was taking rivaroxaban with last [...] date/range tbd Lissette Breen Pharm.D., R.Ph. Contact [phone] with any questions about this note. Petra Dillard M.D. - 07/03/2018 6:22 PM CDT I agree with the daily progress note, history, physical and management plan as outlined by Oralia Zhong with the below changes and additions. Mila Quezada L.I.C.S.W., M.S.W. - 07/03/2018 3:19 PM CDT SUBJECTIVE Referral Data Referral Source: Early Screen for Discharge Planning Referral Reason: Discharge Planning Discharge Planning: Correction Facility The patient was seen for ongoing discharge needs. A list of jail facility options (that patient/family geographically resides or requests) has been provided to and reviewed with patient/family. Disclaimers: Financial disclosure provided informing patient of our ownership and financial relationship of the [facility]/home health & hospice agencies. Reviewed insurance coverage, provided patient with in-network options if applicable. Patient/family have indicated a preference for the facility/agency below. patient and family declined additional resources. Provided the patient with a referral update while her son was present. They agreed that their preference would be for [facility] as the son lives nearby. OBJECTIVE Anticipated [...] Address Phone Number Fax Number Kaity Oquendo [facility] [address] [facility] [address] [phone] Contact: nursing Transportation oxygen: No oxygen needed. PER KAITY OQUENDO: ?? Our fuel oil truck driver will pick her at the EAST/PRU doors ??with our w/c on 07/06 at 10am. ?? The fuel oil truck driver will bring a portable O2 tank for transport if needed. ?? The patient must have had a bowel movement within 24 hrs of discharge. ?? The dismissal summary and orders must include an MD signature on the day of discharge and a diagnosis with each medication ordered. A ACCOUNT ANALYST signature is NOT acceptable. ?? Any substitutions of current IV, IM, oral and mist medication [facility] may potentiate cancellation of the admission. [...] WORK: - Pre-admission screen has been completed. ([id number]) - Will continue to follow. Adalberto Castro, [...] seated rest break. Training/Intervention: DGI-4, cues to waste picker feet and step big Response: DGI-4: [...] finding with goal INR 2.5-3.5 per business transformation consultant. Patient was taking rivaroxaban with last dose 06/30 at 1600. INR stagnant. Will in crease dose to 7.5mg. The pharmacist team will continue to follow patient's clinical progress daily until discharge from the hospital. When patient discharged, discharge plan is for discharge warfarin dose: tbd mg Post Hospital follow up tbd INR recheck date/range tbd So Jovel Pharm.D., R.Ph. Contact [phone] with any questions about this note. Oralia Ricks APRN, C.N.P. - 07/03/2018 7:42 AM CDT [facility] CARDIOLOGY INPATIENT PROGRESS NOTE SUBJECTIVE Ms. [...] flutter. She is status post cardioversion in [place] and had some some issues with noncompliance [...] and skilled care was recommended. --social services coordinator seeking skilled care placement VTE: Heparin IV GI: Pantoprazole Code Status: Full Code Disposition: Home - self care Oralia Ricks APRN, C.N.P. 07/03/18 [facility] Heart Rhythm [facility] Douglas Ibarra M.B.BEdilmaS. - 07/02/2018 5:46 PM CDT ASSESSMENT / PLAN Ms. Metcalf is qualified for a jail facility. From a heart rhythm perspective, she [...] are no restrictions. CT CT Job ID: [id number] Priyanka Emerson R.N. - 07/02/2018 2:21 PM [...] with patient and go over dismissal options. Assistant Press Operator will continue to follow if any needs [...] atrial appendage thrombus CT CT Job ID: [id number] So Jovel, Pharm.D., R.Ph. - 07/02/2018 8:18 [...] finding with goal INR 2.5-3.5 per business transformation consultant. Patient was taking rivaroxaban with last [...] date/range tbd So Jovel, PharmCarlos, R.Ph. Contact [phone] with any questions about this note. Oralia Ricks, NO, C.N.P. - 07/02/2018 7:08 AM CDT [facility] Heart [facility]hythm [facility] CARDIOLOGY INPATIENT PROGRESS NOTE SUBJECTIVE Ms. Metcalf was seen and examined on morning rounds. She is alert and pleasant. She has no concerns. She reports that she will be staying with her youngest son in [place] for 2 weeks. TELEMETRY 138 Atrial flutter [...] flutter. She is status post cardioversion in [place] and had some some issues with noncompliance [...] of potassium --PM&R safety and cognitive evaluation --electrical tech/project manager is following closely for homegoing issues. VTE: Heparin IV GI: Pantoprazole Code Status: Full Code Disposition: Home - self care Oralia Ricks APRN, C.N.P. 07/02/18 [facility] Tommy Rogers - 07/01/2018 4:59 PM [...] finding with goal INR 2.5-3.5 per business transformation consultant. Patient was taking rivaroxaban with last [...] date/range tbd So Jovel Pharm.D., R.Ph. Contact [phone] with any questions about this note. Markel [...] will proceed today. CT CT Job ID: [id number] Oralia Ricks APRN, C.N.P. - 07/01/2018 7:37 AM CDT T [facility] CARDIOLOGY INPATIENT PROGRESS NOTE SUBJECTIVE Ms. [...] flutter. She is status post cardioversion in [place] and had some some issues with noncompliance [...] self care Oralia Ricks APRN, C.N.P. 07/01/18 [facility] Ken Tommy Federico - 06/30/2018 1:56 PM [...] Richey P.A.-C. - 06/30/2018 10:36 AM CDT [facility] CARDIOLOGY INPATIENT PROGRESS NOTE SUBJECTIVE Ms. Metcalf was seen and examined on morning rounds in conjunction with my business transformation consultant Dr. Ibarra.Patient reports no events overnight. [...] admitted with flutter with rapid rates in [place] spontaneously converted to normal rhythm. She is [...] and diltiazem drip. CT CT Job ID: [id number] Antelmo Richey P.A.-C. - 06/29/2018 7:10 PM CDT Images from the original note were not included. CARDIOLOGY INPATIENT ADMISSION NOTE CHIEF COMPLAINT/REASON FOR VISIT Atrial flutter Collaborating physician: Douglas Ibarra M.B.B.S. Admitting service: T [facility] HISTORY OF PRESENT ILLNESS Ms. Metcalf is a 63 y.o. female who presented to the [facility] for management of atrial flutter. She has medical comorbidities including, but not limited to: Atrial flutter, hypertension, hyperlipidemia, type 2 diabetes on metformin (A1c 6.5 on 05/11/2018), CHAPITO not using CPAP, iron deficiency anemia, depression with anxiety, migraine, mild persistent asthma, fibromyalgia, polypharmacy, migraine headaches. The patient was initially admitted at [facility] for management of paroxysmal atrial fibrillation [...] every 4 (four) hours as needed. ??? dooxipu-ikwfyihqqkmyx-jooaajey (EXCEDRIN MIGRAINE) 250-250-65 mg per tablet, Take [...] flutter. She was recently admitted at the [facility] from 06/22 through [...] to diltiazem. The patient has an elevated [id number] asc score for atrial fibrillation Stroke risk [...] questions answered. Outcome Measures Current ADL Status: [facility] Inpatient Short Form: Putting on and taking [...] CMS Modifier: CJ Interpretation: Clinicians answer the [facility] Inpatient Short Form based on observed patient [...] patient, including my status as a mandated general assistant. Discussed the current discharge recommendation for rehab placement, which patient stated being agreeable to. She shared that if rehab is unable to be obtained, she would be able to stay with her son for a few weeks before returning home. A list of jail facility options (that patient/family geographically resides or requests) has been provided to and reviewed with patient/family. Disclaimers: Financial disclosure provided informing patient of our ownership and financial relationship of the [facility] beds, home health, and hospice agencies. Reviewed insurance coverage, provided patient with in-network options if applicable. Patient was agreeable to the following referrals, which were sent on her behalf: [facility], [facility] [place], [facility] [place], and [facility]. Shared that social work would initiate those referrals, and would provide an update when responses are received from the facilities. DEMOGRAPHIC INFORMATION Referral Source: Early Screen for Discharge Planning Referral Reason: Discharge Planning Discharge Planning: Correction Facility Person(s) present during interview: Patient Primary care clinic and provider: [facility] / Dr. Kandace Mckeon Primary Language: Greek Senior It Business Analyst Services Used: No Citizenship: [place] Citizen Resident [...] disability, and the other son resides in [place] and is willing to have patient stay with him for a few weeks post-discharge. Support Systems: Children. We have not received permission to contact them. 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 Psychosocial Risk Factors impacting [...] Behavior: Forgetful Communication: Talks, Understands speaking, Understands Greek It is anticipated that the patient will need assistance with Medication Set- up/Administration, Housekeeping, Transportation Use (drive car, use taxi/bus). ASSISTIVE DEVICES Patient has the following equipment: Walker, Grab Bars - Wall, Grab Bars - Toilet Patient anticipates potentially needing the following additional equipment: Walker, Grab Bars - Wall, Grab Bars - Toilet NET DEVELOPER CONSULTANT Formal and Informal Resources: Home Health Care: [...] Discharge Planning Discussion/Education Options Provided REFERRALS: ?? [facility] ?? [facility] ?? [facility] ?? [facility] ?? [facility] ?? [facility] ?? [facility] PLAN ?? Motivation for treatment/plan: fair [...] Prior Function / Occupational Profile Level of Cosby: Independent with ADLs and functional transfers, Needs [...] clear leftlower extremity. Training/Intervention: MiniBEST-13, cues to waste picker feet, assistantce at gait belt to [...] by the 3rd box when cue dot waste picker feet. Patient reached max heart rate of 137 bpm following 10 meters of ambulation and began to feel symptoms of her heart racing. Education provided this session: continued ambulation with nursing while self- monitoring for symptoms of dyspnea with exertion; the benefits of jail facilities and their role in therapy The patient/family educated on safe transfer techniques with functional mobility/activity. The following coordination of care occurred today: Contacted Patient's nurse and reforestation worker regarding discharge/safety recommendations, equipment needs/recommendations and [...] Who was present during the interview?: Patient Senior It Business Analyst Services Used: No Patient Information Primary Caregiver: [...] Behavior: Forgetful Communication: Talks, Understands speaking, Understands Greek Environmental Supports Home Environment: Apartment Anticipated Modifications [...] aide Home Care Agency Name : [facility] Anticipated Discharge Destination: Home-Health Care c Does the patient need discharge transport arranged?: No ASSESSMENT / PLAN ??Assessment: Met with the patient to discuss her prior level of care and home going needs. I reviewed my role of Assistant Press Operator. Patient reviewed her current hospitalization and appears [...] and support system; reviewing that her primary mall plant caretaker is herself. She reports that she needs [...] weeks and is hoping tomove to the [facility] in an assisted living facility. Patient did add that her son does work fulltime, so he will not be home to give her 24 hour assistance. I have a call into her son, Yaya to confirm a safe transition back to home. (JULIANNA on file) Son was unavailable, so I left a message. I will start the reconnection process with the [facility] company and follow up with the discharge plan later today. Spoke to patient's son, Yaya, about dismissal plan for patient, Yaya said patient was going to stay with him for a couple weeks and then go back home to [place]. Yaya said she does live with his [...] her to his home. 5. Reconnections needed [facility] Signed by: Priyanka Emerson R.N. 06/30/2018 documented [...] disorder. She was recently admitted at the [facility] from 06/22/2018 - 06/23/2018, where she [...] weakness and decreased caregiver support at home. custodial facility placement was recommended post-discharge. Social work assisted with discharge planning. Patient discharged in stable condition on 07/06/2018 to [facility]. documented in this encounter Plan of [...] CBC without Differential (07/06/2018 6:26 AM CDT) [facility] Method Time Signature Hemoglobin 12.8 11.6 - 07/06/2018 [facility] 15.0 g/dL 6:53 AM CDT LABORATORIES - [facility] Hematocrit 39.7 35.5 - 07/06/2018 [facility] 44.9 % 6:53 AM CDT [facility]ATORIES [facility] Erythrocytes 4.55 3.92 - 07/06/2018 [facility] 5.13 6:53 AM CDT LABORATORIES - x10(12)/L [facility] MCV 87.3 78.2 - 07/06/2018 [facility] 97.9 fL 6:53 AM CDT [facility] - [facility] RBC Distrib 14.3 12.2 - 07/06/2018 [facility] Width 16.1 % 6:53 AM CDT [facility] - [facility] Platelet Count 475 (H) 157 - 371 07/06/2018 [facility] x10(9)/L 6:53 AM CDT [facility] - [facility] Leukocytes 9.8 (H) 3.4 - 9.6 07/06/2018 [facility] x10(9)/L 6:53 AM CDT [facility] Specimen Anatomical Collection Method Collection Time Receive d Time (Source) Location / / Volume Laterality Blood (Blood, 07/06/2018 6:26 AM 07/07/19 19 6:45 Venous) CDT AM CDT Oralia Ricks APRN, C.N.P. LAB BLOOD ADD-ON Performing Organization Address City/[facility] Phon e Number [facility] LABORATORIES - [address] (ABNORMAL) Prothrombin Time (PT/INR) (07/06/2018 6:26 AM CDT) [facility] Method Time Signature Prothrombin 28.9 (H) 9.4 - 07/06/2018 [facility] Time, P 12.5 sec 7:06 AM CDT [facility] INR 2.6 0.9 - 1.1 07/06/2018 [facility] 7:06 AM CDT [facility] Comment: ----ADDITIONAL INFORMATION---- Standard intensity warfarin therapeutic range: 2.0 to 3.0 ?? High intensity warfarin therapeutic rang e: 2.5 to 3.5 Specimen Anatomical Collection Method Collection Time Receive d Time (Source) Location / / Volume Laterality Blood (Blood, 07/06/2018 6:26 AM 07/07/19 19 6:45 Venous) CDT AM CDT Oralia Ricks APRN, C.N.P. LAB BLOOD ADD-ON Performing Organization Address City/[facility] Code Phon e Number [facility] LABORATORIES - [address] [place] [address] [facility] Basic Metabolic Panel (07/06/2018 6:26 AM CDT) Analysis Performed At Patho logist Time Signature Potassium, S 4.3 3.6 - 5.2 07/06/2018 [facility] mmol/L 7:25 AM CDT [facility] Sodium, S 139 135 - 145 07/06/2018 [facility] mmol/L 7:25 AM CDT [facility] Chloride, S 102 98 - 107 07/06/2018 [facility] mmol/L 7:25 AM CDT [facility] Bicarbonate, S 24 22 - 29 07/06/2018 [facility] mmol/L 7:25 AM CDT [facility] Anion Gap 13 7 - 15 07/06/2018 [facility] 7:25 AM CDT [facility] BUN (Blood Urea 19 6 - 21 07/06/2018 [facility] Nitrogen), S mg/dL 7:25 AM T [facility] Creatinine 0.99 0.59 - 07/06/2018 [facility] 1.04 mg/dL 7:25 AM CDT [facility] eGFR-Non 62 >=60 07/06/2018 [facility] Black/ mL/min/BSA 7:25 AM CDT LABORATORIES [facility] Comment: ----ADDITIONAL INFORMATION---- Estimated GFR calculated using the 2009 CKD_EPI creatinine equation. eGFR-Black/ 71 >=60 mL/min/BSA 07/06/2018 7:25 [facility] CDT [facility] Comment: ----ADDITIONAL INFORMATION---- Estimated GFR calculated using the 2009 CKD_EPI creatinine equation. Calcium, Total, S 9.3 8.8 - 10.2 mg/dL 07/06/2018 7:25 AM [facility] CDT [facility] Glucose, S 107 70 - 140 mg/dL 07/06/2018 7:25 AM [facility] Specimen Anatomical Collection Method Collection Time Receive d Time (Source) Location / / Volume Laterality Blood (Blood, 07/06/2018 6:26 AM 07/07/19 19 6:45 Venous) CDT AM CDT Bella Danielson P.A.-C., M.S. LAB BLOOD ADD-ON Performing Organization Address City/State/ZIP Code Phon e Number [facility] - [address] [place] [address] [facility] (ABNORMAL) CBC without Differential (07/05/2018 6:34 AM CDT) [facility] Method Time Signature Hemoglobin 13.2 11.6 - 07/05/2018 [facility] 15.0 g/dL 7:14 AM CDT [facility] Hematocrit 42.1 35.5 - 07/05/2018 [facility] 44.9 % 7:14 AM CDT [facility] Erythrocytes 4.75 3.92 - 07/05/2018 [facility] 5.13 7:14 AM CDT LABORATORIES - x10(12)/L [facility] MCV 88.6 78.2 - 07/05/2018 [facility] 97.9 fL 7:14 AM CDT [facility] RBC Distrib 14.1 12.2 - 07/05/2018 [facility] Width 16.1 % 7:14 AM CDT [facility] Platelet Count 490 (H) 157 - 371 07/05/2018 [facility] x10(9)/L 7:14 AM CDT [facility] Leukocytes 9.6 3.4 - 9.6 07/05/2018 [facility] x10(9)/L 7:14 AM CDT [facility] Specimen Anatomical Collection Method Collection Time Receive d Time (Source) Location / / Volume Laterality Blood (Blood, 07/05/2018 6:34 AM 07/06/19 19 7:11 Venous) CDT AM CDT Oralia Ricks APRN, C.N.P. LAB BLOOD ADD-ON Performing Organization Address City/State/[facility] Phon e Number [facility] LAB[facility]ATORIES - [address] [place] [address] [facility] (ABNORMAL) Prothrombin Time (PT/INR) (07/05/2018 6:33 AM CDT) [facility] [place] Method Time Signature Prothrombin 30.5 (H) 9.4 - 07/05/2018 [facility] Time, P 12.5 sec 7:36 AM CDT LABORATORIES [facility] INR 2.7 0.9 - 1.1 07/05/2018 [facility] 7:36 AM CDT [facility] Comment: ----ADDITIONAL INFORMATION---- Standard intensity warfarin [...] Phon e Number [facility] LAB[facility]ATORIES - [address] [place], [place] [address] [facility] (ABNORMAL) Basic Metabolic Panel (07/05/2018 6:33 AM CDT) [facility] gist Method Time Signature Potassium, S 4.6 3.6 - 5.2 07/05/2018 [facility] mmol/L 7:49 AM CDT LABORATORIES - [facility] Sodium, S 139 135 - 145 07/05/2018 [facility] mmol/L 7:49 AM CDT LABORATORIES - [facility] Chloride, S 100 98 - 107 07/05/2018 [facility] mmol/L 7:49 AM CDT LABORATORIES - [facility] Bicarbonate, S 26 22 - 29 07/05/2018 [facility] mmol/L 7:49 AM CDT LABORATORIES - [facility] Anion Gap 13 7 - 15 07/05/2018 [facility] 7:49 AM CDT LABORATORIES - [facility] BUN (Blood 21 6 - 21 07/05/2018 [facility] Urea mg/dL 7:49 AM CDT LABORATORIES - Nitrogen), S [facility] Creatinine 1.20 (H) 0.59 - 07/05/2018 [facility] 1.04 7:49 AM CDT LABORATORIES - mg/dL [facility] eGFR-Non 49 (L) >=60 07/05/2018 [facility] Black/ mL/min/BS 7:49 AM CDT LABORATORIES - [place] A [facility] Comment: ----ADDITIONAL INFORMATION---- Estimated GFR calculated using the 2009 CKD_EPI creatinine equation. eGFR-Black/ 56 (L) >=60 mL/min/BSA 07/05/2018 7:49 [facility] [place]ritrean AM CDT LAB[facility]ATORIES - [facility] Comment: ----ADDITIONAL INFORMATION---- Estimated GFR calculated using the 2009 CKD_EPI creatinine equation. Calcium, Total, S 9.3 8.8 - 10.2 mg/dL 07/05/2018 7:49 AM [facility] CDT LABORATORIES - [facility] S Glucose, S 115 70 - 140 mg/dL 07/05/2018 7:49 AM [facility] CDT LABORATORIES - [facility] S Specimen Anatomical Collection Method Collection Time Receive d Time (Source) Location / / Volume Laterality Blood (Blood, 07/05/2018 6:33 AM 07/06/19 19 7:11 Venous) CDT AM CDT Kadeem Butts APRNN.P. LAB BLOOD ADD-ON Performing Organization Address City/[facility] Phon e Number [facility] LABORATORIES - [address] [phone] [facility] Magnesium (07/05/2018 6:29 AM CDT) P athologist Signature Magnesium, S 1.8 1.7 - 2.3 07/05/2018 [facility] mg/dL 10:34 AM CDT LABORATORIES - [facility] Specimen Anatomical Collection Method Collection Time Receive d Time (Source) Location / / Volume Laterality Blood (Blood, 07/05/2018 6:29 AM 07/06/19 19 Venous) CDT 10:19 AM CDT Bella Danielson P.A.-C., M.S. LAB BLOOD ADD-ON Performing Organization Address City/[facility] Code Phon e Number [facility] LABORATORIES - [address] (ABNORMAL) Prothrombin Time (PT/INR) (07/04/2018 6:30 AM CDT) Patholo gist Method Time Signature Prothrombin 20.8 (H) 9.4 - 07/04/2018 [facility] Time, P 12.5 sec 7:02 AM CDT LABORATORIES - [facility] INR 1.9 0.9 - 1.1 07/04/2018 [facility] 7:02 AM CDT LAB[facility]ATORIES - [facility] Comment: ----ADDITIONAL INFORMATION---- Standard intensity warfarin therapeutic range: 2.0 to 3.0 ?? High intensity warfarin therapeutic rang e: 2.5 to 3.5 Specimen Anatomical Collection Method Collection Time Receive d Time (Source) Location / / Volume Laterality Blood (Blood, 07/04/2018 6:30 AM 07/05/19 19 6:45 Venous) CDT AM CDT Oralia Ricks APRN, C.N.P. LAB BLOOD ADD-ON Performing Organization Address [facility] Phon e Number [facility] LABORATORIES - [address] [phone] [facility] (ABNORMAL) CBC without Differential (07/04/2018 6:30 AM CDT) [facility] [place] Method Time Signature Hemoglobin 13.2 11.6 - 07/04/2018 [facility] 15.0 g/dL 6:54 AM CDT LABORATORIES - [facility] Hematocrit 41.4 35.5 - 07/04/2018 [facility] 44.9 % 6:54 AM CDT LABORATORIES - [facility] Erythrocytes 4.70 3.92 - 07/04/2018 [facility] 5.13 6:54 AM CDT LABORATORIES - x10(12)/L [facility] MCV 88.1 78.2 - 07/04/2018 [facility] 97.9 fL 6:54 AM CDT LABORATORIES - [facility] RBC Distrib 14.2 12.2 - 07/04/2018 [facility] Width 16.1 % 6:54 AM CDT LABORATORIES - [facility] Platelet Count 492 (H) 157 - 371 07/04/2018 [facility] x10(9)/L 6:54 AM CDT LABORATORIES - [facility] Leukocytes 9.1 3.4 - 9.6 07/04/2018 [facility] x10(9)/L 6:54 AM CDT LABORATORIES - [facility] Specimen Anatomical Collection Method Collection Time Receive d Time (Source) Location / / Volume Laterality Blood (Blood, 07/04/2018 6:30 AM 07/05/19 19 6:45 Venous) CDT AM CDT Oralia Ricks APRN, C.N.P. LAB BLOOD ADD-ON Performing Organization Address City/[facility] Phon e Number [facility] LABORATORIES - [address] [phone] [facility] (ABNORMAL) Basic Metabolic Panel (07/04/2018 6:30 AM CDT) [facility] [place] Method Time Signature Potassium, S 4.7 3.6 - 5.2 07/04/2018 [facility] mmol/L 7:20 AM CDT LABORATORIES - [facility] Sodium, S 138 135 - 145 07/04/2018 [facility] mmol/L 7:20 AM CDT LABORATORIES - [facility] Chloride, S 100 98 - 107 07/04/2018 [facility] mmol/L 7:20 AM CDT [facility]ATORIES - [facility] Bicarbonate, S 25 22 - 29 07/04/2018 [facility] mmol/L 7:20 AM CDT LABORATORIES - [facility] Anion Gap 13 7 - 15 07/04/2018 [facility] 7:20 AM CDT LABORATORIES - [facility] BUN (Blood 18 6 - 21 07/04/2018 [facility] Urea mg/dL 7:20 AM CDT LABORATORIES - Nitrogen), S [facility] Creatinine 1.06 (H) 0.59 - 07/04/2018 [facility] 1.04 7:20 AM CDT LABORATORIES - mg/dL [facility] eGFR-Non 57 (L) >=60 07/04/2018 [facility] Black/ mL/min/BS 7:20 AM CDT LABORATORIES - [place] A [facility] Comment: ----ADDITIONAL INFORMATION---- Estimated GFR calculated using the 2009 CKD_EPI creatinine equation. eGFR-Black/ 65 >=60 mL/min/BSA 07/04/2018 7:20 [facility] [place]an AM CDT LAB[facility]ATORIES - [facility] Comment: ----ADDITIONAL INFORMATION---- Estimated GFR calculated using the 2009 CKD_EPI creatinine equation. Calcium, Total, S 9.4 8.8 - 10.2 mg/dL 07/04/2018 7:20 AM [facility] CDT LABORATORIES - [facility] S Glucose, S 138 70 - 140 mg/dL 07/04/2018 7:20 AM [facility] CDT LABORATORIES - [facility] S Specimen Anatomical Collection Method Collection Time Receive d Time (Source) Location / / Volume Laterality Blood (Blood, 07/04/2018 6:30 AM 07/05/19 19 6:45 Venous) CDT AM CDT Oralia Ricks APRN, C.N.P. LAB BLOOD ADD-ON Performing Organization Address City/State/ZIP Code Phon e Number [facility] LABORATORIES - [address] [place], [place] [address] [facility] ECG 12 Lead (07/03/2018 9:41 AM CDT) [facility] gist Method Time Signature Ventricular 80 BPM MUSE Rate ECG/Min QRSD Interval 94 ms MUSE QT Interval 430 ms MUSE QTC Interval 497 ms MUSE P [place] -113 degrees MUSE R [place] 94 degrees MUSE T Wave [place] -74 degrees MUSE CODED DIAGNOSIS Atrial MUSE [...] (07/03/2018 5:30 AM CDT) Analysis Performed At [facility] logist Time Signature Activated 79 (H) 25 - 37 07/03/2018 [facility] Partial sec 6:26 AM CDT LABORATORIES - Thrombopl [facility] Specimen Anatomical Collection Method Collection Time Receive d Time (Source) Location / / Volume Laterality Blood (Blood, 07/03/2018 5:30 AM 07/04/19 19 6:07 Venous) CDT AM CDT Douglas Pham LAB BLOOD ADD-ON Performing Organization Address City/State/ZIP Code Phon e Number [facility] LABORATORIES - [address] [place], [place] [address] [facility] (ABNORMAL) Prothrombin Time (PT/INR) (07/03/2018 5:30 AM CDT) Patholo gist Method Time Signature Prothrombin 14.2 (H) 9.4 - 07/03/2018 [facility] Time, P 12.5 sec 6:26 AM CDT LABORATORIES - [facility] INR 1.3 0.9 - 1.1 07/03/2018 [facility] 6:26 AM CDT LABORATORIES - [facility] Comment: ----ADDITIONAL INFORMATION---- Standard intensity warfarin [...] Phon e Number [facility] LABORATORIES - [address] [place], [place] [address] [facility] (ABNORMAL) CBC without Differential (07/03/2018 5:30 AM CDT) [facility] Method Time Signature Hemoglobin 13.6 11.6 - 07/03/2018 [facility] 15.0 g/dL 6:16 AM CDT LABORATORIES [facility] Hematocrit 43.6 35.5 - 07/03/2018 [facility] 44.9 % 6:16 AM CDT [facility] Erythrocytes 4.90 3.92 - 07/03/2018 [facility] 5.13 6:16 AM CDT LABORATORIES - x10(12)/L [facility] MCV 89.0 78.2 - 07/03/2018 [facility] 97.9 fL 6:16 AM CDT LABORATORIES [facility] RBC Distrib 14.2 12.2 - 07/03/2018 [facility] Width 16.1 % 6:16 AM CDT LABORATORIES [facility] Platelet Count 531 (H) 157 - 371 07/03/2018 [facility] x10(9)/L 6:16 AM CDT LABORATORIES - [facility] Leukocytes 8.7 3.4 - 9.6 07/03/2018 [facility] x10(9)/L 6:16 AM CDT LABORATORIES [facility] Specimen Anatomical Collection Method Collection Time Receive d Time (Source) Location / / Volume Laterality Blood (Blood, 07/03/2018 5:30 AM 04/12/20 19 6:07 Venous) CDT AM CDT Kadeem Carr APRNNEdilmaPEdilma LAB BLOOD ADD-ON Performing Organization Address City/State/ZIP Code Phon e Number [facility] LABORATORIES - [address] [place], [place] [address] [facility] Basic Metabolic Panel (07/03/2018 5:30 AM CDT) Analysis Performed At Patho logist Time Signature Potassium, S 4.8 3.6 - 5.2 07/03/2018 [facility] mmol/L 6:41 AM CDT LABORATORIES - [facility] Sodium, S 138 135 - 145 07/03/2018 [facility] mmol/L 6:41 AM CDT LABORATORIES - [facility] Chloride, S 100 98 - 107 07/03/2018 [facility] mmol/L 6:41 AM CDT LABORATORIES - [facility] Bicarbonate, S 26 22 - 29 07/03/2018 [facility] mmol/L 6:41 AM CDT LABORATORIES [facility] Anion Gap 12 7 - 15 07/03/2018 [facility] 6:41 AM CDT LABORATORIES [facility] BUN (Blood Urea 16 6 - 21 07/03/2018 [facility] Nitrogen), S mg/dL 6:41 AM CDT LABORATORIES [facility] Creatinine 0.94 0.59 - 07/03/2018 [facility] 1.04 mg/dL 6:41 AM T LABORATORIES [facility] eGFR-Non 66 >=60 07/03/2018 [facility] Black/ mL/min/BSA 6:41 AM CDT LABORATORIES [facility] Comment: ----ADDITIONAL INFORMATION---- Estimated GFR calculated using the 2009 CKD_EPI creatinine equation. eGFR-Black/ 76 >=60 mL/min/BSA 07/03/2018 6:41 [facility] Erit[place]an CDT LABORATORIES [facility] Comment: ----ADDITIONAL INFORMATION---- Estimated GFR calculated using the 2009 CKD_EPI creatinine equation. Calcium, Total, S 9.2 8.8 - 10.2 mg/dL 07/03/2018 6:41 AM [facility] CDT LABORATORIES [facility] Glucose, S 116 70 - 140 mg/dL 07/03/2018 6:41 AM [facility] CDT LABORATORIES [facility] Specimen Anatomical Collection Method Collection Time Receive d Time (Source) Location / / Volume Laterality Blood (Blood, 07/03/2018 5:30 AM 07/04/19 19 6:07 Venous) CDT AM CDT Oralia Ricks APRN, C.N.P. LAB BLOOD ADD-ON Performing Organization Address City/[facility]/ZIP Code Phon e Number [facility] LABORATORIES - [address] [place], [place] [address] [facility] Glucose, POCT (07/03/2018 5:29 AM CDT) [...] Provider LAB POCT ORDERABLES-MANUAL Performing Organization Address City/[facility] Code Phon e Number [facility] SERVICES [address] [place] [address] Glucose, POCT (07/03/2018 2:13 AM CDT) Analysis Performed At [facility] logist Time Signature Glucose, POCT, 114 70 - 140 07/03/2018 [facility] B mg/dL 2:15 AM CDT SERVICES Site Capillary 07/03/2018 [facility] 2:15 AM CDT SERVICES Specimen Anatomical Collection Method Collection Time Receive d Time (Source) Location / / Volume Laterality Blood 07/03/2018 2:13 AM 9 2:15 CDT AM CDT Unknown Provider LAB POCT ORDERABLES-MANUAL Performing Organization Address City/[facility] Phon e Number [facility] SERVICES [address] [place] [address] (ABNORMAL) APTT (Activated Partial Thromboplastin Time) (07/02/2018 9:01 PM CDT) Analysis Performed At Path logist Time Signature Activated 88 (H) 25 - 37 07/02/2018 [facility] Partial sec 10:04 PM CDT LABORATORIES - Thrombopl [facility] Specimen Anatomical Collection Method Collection Time Receive d Time (Source) Location / / Volume Laterality Blood (Blood, 07/02/2018 9:01 PM 07/03/19 19 9:31 Venous) CDT PM CDT Douglas RendonSEdilma LAB BLOOD ADD-ON Performing Organization Address City/[facility]/ZIP Code Phon e Number [facility] LABORATORIES - [address] [place], [place] [address] [facility] Glucose, POCT (07/02/2018 5:34 PM CDT) [...] Provider LAB POCT ORDERABLES-MANUAL Performing Organization Address [facility] Phon e Number [facility] [address] [place] [address] (ABNORMAL) APTT (Activated Partial Thromboplastin Time) (07/02/2018 1:27 PM CDT) Analysis Performed At Patho logist Time Signature Activated 42 (H) 25 - 37 07/02/2018 [facility] Partial sec 2:25 PM CDT LABORATORIES - Thrombopl [facility] Specimen Anatomical Collection Method Collection Time Receive d Time (Source) Location / / Volume Laterality Blood (Blood, 07/02/2018 1:27 PM 07/03/19 19 1:59 Venous) CDT PM CDT Douglas RendonS. LAB BLOOD ADD-ON Performing Organization Address City/[facility] Code Phon e Number [facility] LABORATORIES - [address] [place], [place] [address] [facility] Glucose, POCT (07/02/2018 1:16 PM CDT) [...] Provider LAB POCT ORDERABLES-MANUAL Performing Organization Address City/[facility]/ZIP Code Phon e Number [facility] [address] [place] [address] Glucose, POCT (07/02/2018 6:41 AM CDT) Analysis [...] Provider LAB POCT ORDERABLES-MANUAL Performing Organization Address City/[facility] Code Phon e Number [facility] SERVICES [address] [place] [address] Thyroid Function [place] (07/02/2018 5:23 AM CDT) P athologist Signature TSH, Sensitive 3.3 0.3 - 4.2 07/02/2018 [facility] mIU/L 9:20 AM CDT LABORATORIES - [facility] Specimen Anatomical Collection Method Collection Time Receive d Time (Source) Location / / Volume Laterality Blood (Blood, 07/02/2018 5:23 AM 07/03/19 19 8:30 Venous) CDT AM CDT Oralia Ricks APRN, C.N.P. LAB BLOOD ADD-ON Performing Organization Address City/[facility]/ZIP Code Phon e Number [facility] LABORATORIES - [address] [place], [place] [address] [facility] (ABNORMAL) APTT (Activated Partial Thromboplastin Time) (07/02/2018 5:23 AM CDT) Patholo gist Method Time Signature Activated 115 (H) 25 - 37 07/02/2018 [facility] Partial sec 6:04 AM CDT LABORATORIES - Thrombopl [facility] Specimen Anatomical Collection Method Collection Time Receive d Time (Source) Location / / Volume Laterality Blood (Blood, 07/02/2018 5:23 AM 07/03/19 19 5:34 Venous) CDT AM CDT Douglas Pham LAB BLOOD ADD-ON Performing Organization Address City/[facility] Phon e Number [facility] LABORATORIES - [address] [place], [place] [address] [facility] (ABNORMAL) Prothrombin Time (PT/INR) (07/02/2018 5:23 AM CDT) [facility] Time Signature Prothrombin 14.2 (H) 9.4 - 07/02/2018 [facility] Time, P 12.5 sec 5:51 AM CDT LABORATORIES - [facility] INR 1.3 0.9 - 1.1 07/02/2018 [facility] 5:51 AM CDT LABORATORIES - [facility] Comment: ----ADDITIONAL INFORMATION---- Standard intensity warfarin therapeutic range: 2.0 to 3.0 ?? High intensity warfarin therapeutic rang e: 2.5 to 3.5 Specimen Anatomical Collection Method Collection Time Receive d Time (Source) Location / / Volume Laterality Blood (Blood, 07/02/2018 5:23 AM 07/03/19 19 5:34 Venous) CDT AM CDT Oralia Ricks APRN, C.N.P. LAB BLOOD ADD-ON Performing Organization Address City/[facility] Phon e Number [facility] LABORATORIES - [address] [place], [place] [address] [facility] (ABNORMAL) CBC without Differential (07/02/2018 5:23 AM CDT) [facility] Method Time Signature Hemoglobin 13.6 11.6 - 07/02/2018 [facility] 15.0 g/dL 5:43 AM CDT LABORATORIES - [facility] Hematocrit 42.7 35.5 - 07/02/2018 [facility] 44.9 % 5:43 AM CDT LABORATORIES - [facility] Erythrocytes 4.87 3.92 - 07/02/2018 [facility] 5.13 5:43 AM CDT LABORATORIES - x10(12)/L [facility] MCV 87.7 78.2 - 07/02/2018 [facility] 97.9 fL 5:43 AM CDT LABORATORIES - [facility] RBC Distrib 14.1 12.2 - 07/02/2018 [facility] Width 16.1 % 5:43 AM CDT LABORATORIES - [facility] Platelet Count 511 (H) 157 - 371 07/02/2018 [facility] x10(9)/L 5:43 AM CDT LABORATORIES - [facility] Leukocytes 9.2 3.4 - 9.6 07/02/2018 [facility] x10(9)/L 5:43 AM CDT LABORATORIES - [facility] Specimen Anatomical Collection Method Collection Time Receive d Time (Source) Location / / Volume Laterality Blood (Blood, 07/02/2018 5:23 AM 07/03/19 19 5:34 Venous) CDT AM CDT Oralia Ricks APRN, C.N.P. LAB BLOOD ADD-ON Performing Organization Address City/State/ZIP Code Phon e Number [facility] LABORATORIES - [address] [place], [place] [address] [facility] (ABNORMAL) Basic Metabolic Panel (07/02/2018 5:23 AM CDT) [facility] gist Method Time Signature Potassium, S 3.6 3.6 - 5.2 07/02/2018 [facility] mmol/L 6:59 AM CDT LABORATORIES - [facility] Sodium, S 135 135 - 145 07/02/2018 [facility] mmol/L 6:59 AM CDT LABORATORIES - [facility] Chloride, S 97 (L) 98 - 107 07/02/2018 [facility] mmol/L 6:59 AM CDT LABORATORIES - [facility] Bicarbonate, S 23 22 - 29 07/02/2018 [facility] mmol/L 6:59 AM CDT LABORATORIES - [facility] Anion Gap 15 7 - 15 07/02/2018 [facility] 6:59 AM CDT LABORATORIES - [facility] BUN (Blood Urea 17 6 - 21 07/02/2018 [facility] Nitrogen), S mg/dL 6:59 AM CDT LABORATORIES - [facility] Creatinine 0.96 0.59 - 07/02/2018 [facility] 1.04 mg/dL 6:59 AM CDT LABORATORIES - [facility] eGFR-Non 64 >=60 07/02/2018 [facility] Black/ mL/min/BSA 6:59 AM CDT LABORATORIES - [facility] Comment: ----ADDITIONAL INFORMATION---- Estimated GFR calculated using the 2009 CKD_EPI creatinine equation. eGFR-Black/ 74 >=60 mL/min/BSA 07/02/2018 6:59 [facility] Eritrean AM CDT LABORATORIES - [facility] Comment: ----ADDITIONAL INFORMATION---- Estimated GFR calculated using the 2009 CKD_EPI creatinine equation. Calcium, Total, S 9.0 8.8 - 10.2 07/02/2018 6:59 AM [facility] mg/dL CDT LABORATORIES - [facility] S Glucose, S 163 (H) 70 - 140 mg/dL 07/02/2018 6:59 AM [facility] CDT LABORATORIES - [facility] Specimen Anatomical Collection Method Collection Time Receive d Time (Source) Location / / Volume Laterality Blood (Blood, 07/02/2018 5:23 AM 07/03/19 19 5:34 Venous) CDT AM CDT Amrita Carr APRNP. LAB BLOOD ADD-ON Performing Organization Address City/[facility] Code Phon e Number [facility] LABORATORIES - [address] [place] [address] [facility] (ABNORMAL) APTT (Activated Partial Thromboplastin Time) (07/01/2018 10:04 PM CDT) Analysis Performed At Patho logist Time Signature Activated 39 (H) 25 - 37 07/01/2018 [facility] Partial sec 10:35 PM CDT [facility] Specimen Anatomical Collection Method Collection Time Receive d Time (Source) Location / / Volume Laterality Blood (Blood, 07/01/2018 10:04 07/01/2018 Venous) PM CDT 10:21 PM CDT Douglas Pham LAB BLOOD ADD-ON Performing Organization Address City/[facility] Code Phon e Number [facility] LABORATORIES - [address] [address] [facility] Glucose, POCT (07/01/2018 9:49 PM CDT) P athologist Signature Glucose, POCT, 118 70 - 140 07/01/2018 [facility] B mg/dL 9:52 PM CDT SERVICES Specimen Anatomical Collection Method Collection Time Receive d Time (Source) Location / / Volume Laterality Blood 07/01/2018 9:49 PM 9 9:52 CDT PM CDT Unknown Provider LAB POCT ORDERABLES-MANUAL Performing Organization Address City/[facility]/ZIP Code Phon e Number [facility] SERVICES [address] [place] [address] (ABNORMAL) APTT (Activated Partial Thromboplastin Time) (07/01/2018 9:12 PM CDT) Analysis Performed At Path logist Time Signature Activated 20 (L) 25 - 37 07/01/2018 [facility] Partial sec 10:53 PM CDT LABORATORIES - Thrombopl [facility] Specimen Anatomical Collection Method Collection Time Receive d Time (Source) Location / / Volume Laterality Blood (Blood, 07/01/2018 9:12 PM 07/02/19 19 Venous) CDT 10:10 PM CDT Douglas Pham LAB BLOOD ADD-ON Performing Organization Address City/[facility]/ZIP [facility] Phon e Number [facility] LABORATORIES - [address] [place], [place] [address] [facility] Glucose, POCT (07/01/2018 5:34 PM CDT) Analysis Performed At [facility] logist Time Signature Glucose, POCT, [phone] [...] Provider LAB POCT ORDERABLES-MANUAL Performing Organization Address City/[facility]/ZIP Code Phon e Number [facility] [address] [place] [address] (ABNORMAL) Prothrombin Time (PT/INR) (07/01/2018 1:55 PM CDT) Patholo gist Method Time Signature Prothrombin 17.6 (H) 9.4 - 07/01/2018 [facility] Time, P 12.5 sec 2:21 PM CDT [facility] HOSPITAL INR 1.6 0.9 - 1.1 07/01/2018 [facility] 2:21 PM CDT LABORATORIES - [facility] Comment: ----ADDITIONAL INFORMATION---- Standard intensity warfarin [...] Phon e Number [facility] LABORATORIES - [address] [place], [place] [address] [facility] Glucose, POCT (07/01/2018 1:11 PM CDT) [...] Provider LAB POCT ORDERABLES-MANUAL Performing Organization Address City/[facility] Code Phon e Number POC [facility] [address] [place] [address] (MICHAEL) 2D WITH COLOR, LIMITED DOPPLER AND [...] ic aorta. ??Normally connected pulmonary veins. ??No kzll-zo-wqbnn shunt at atrial level. ??A gitated saline injection(s) performed during sedation. No sxmgp-az-ukxo shunt at atrial level. ??Pericardial effusion. ??PROCEDURE ??Transesophageal echocardiogram performed at the request of the primary dining service inspector. ??Adult probe inserted without difficulty. ??Procedure performed [...] ic aorta. Normally connected pulmonary veins. No dvdr-cg-kcmdx shunt at atrial level. Michelle tated saline injection(s) performed during sedation. No ahbed-ff-tcou shunt at atrial level. Pericardial effusion. PROCEDURE Transesophageal echocardiogram performed at the request of the primary dining service inspector. Adult probe inserted without difficulty. Procedure p [...] Lead STAT PRN (07/01/2018 9:44 AM CDT) [facility] Method Time Signature Ventricular 137 BPM MUSE Rate ECG/Min [place] Interval 244 ms MUSE QRSD Interval 64 ms MUSE QT Interval 364 ms MUSE QTC Interval 549 ms MUSE P [place] 17 degrees MUSE R [place] 102 degrees MUSE T Wave [place] -143 degrees MUSE CODED DIAGNOSIS Atrial MUSE [...] athologist Signature Microscopy Abnormal 07/01/2018 [facility] 1:34 PM CDT LABORATORIES - [facility] RBC <3 <3 /hpf 07/01/2018 [facility] 1:34 PM CDT LAB[facility]ATORIES - [facility] WBC 1-3 /hpf 07/01/2018 [facility] 1:34 PM CDT [facility]ATOR[facility] - [facility] Comment: ----REFERENCE VALUE---- 1-3 ??(Males) 1-10 (Females) Casts, Hyaline 4-10 /lpf 07/01/2018 1:34 PM [facility] ER LINIC CDT LABORATORIES - [facility] Casts, Granular Occas (A) /lpf 07/01/2018 1:34 PM [facility] CDT LABORATORIES [facility] S Fat, Free Occas (A) /hpf 07/01/2018 1:34 PM [facility] CDT LABORATORIES [facility] Squamous Epithelial 4-10 /hpf 07/01/2018 1:34 PM [facility] Cells, U CDT LABORATORIES [facility] Bacteria Present (A) 07/01/2018 1:34 PM [facility] IC CDT LABORATORIES - [facility] Specimen Anatomical Collection Method Collection Time Receive d Time (Source) Location / / Volume Laterality Urine 07/01/2018 9:28 AM 9 CDT 12:00 PM CDT Antelmo Richey P.A.-C. LAB URINE ORDERABLES Performing Organization Address City/[facility]/ZIP Code Phon e Number [facility] LABORATORIES - [address], [place] [address] [facility] (ABNORMAL) Urinalysis with Microscopic (07/01/2018 9:28 AM CDT) Patholo gist Method Time Signature Source Midstream 07/01/2018 [facility] 12:00 PM CDT LABORATORIES [facility] Appearance Normal Normal 07/01/2018 [facility] 12:25 PM CDT LABORATORIES [facility] Osmolality, U 652 150 - 1150 07/01/2018 [facility] mOsm/kg 1:10 PM CDT LABORATORIES [facility] pH, U 5.7 4.5 - 8.0 07/01/2018 [facility] 1:10 PM CDT [facility] Comment: ----ADDITIONAL INFORMATION---- This test was developed and its performa nce characteristics determined by [facility] in a manner co nsistent with CLIA requirements. This test has not bee n cleared or approved by the U.S. Food and Drug Admin istration. Glucose 8 0 - 15 mg/dL 07/01/2018 12:25 PM CDT [facility] Protein, U 40 (H) <26 mg/dL 07/01/2018 12:25 PM CDT [facility] Comment: ----ADDITIONAL INFORMATION---- On 09/17/2016 the total protein assay me thod changed resulting in approximately a 15% increase in prote in values. Protein/Osmolality 0.61 (H) <0.42 Ratio 07/01/2018 1:10 PM [facility] CDT [facility] Comment: ----ADDITIONAL INFORMATION---- On 09/17/2016 the total protein assay me thod changed resulting in approximately a 15% increase in prote in values. Predicted 24 Hr 429 mg/24 h 07/01/2018 1:10 PM [facility] Protein T [facility] Predicted Range 106-1738 mg/24 h 07/01/2018 1:10 PM [facility] Hemoglobin, QL Negative Negative 07/01/2018 12:54 PM [facility] CDT [facility] Specimen Anatomical Collection Method Collection Time Receive d Time (Source) Location / / Volume Laterality Urine (Urine, 07/01/2018 9:28 AM 07/02/19 19 Clean Catch) CDT 12:00 PM CDT Antelmo Richey P.A.-C. LAB URINE ORDERABLES Performing Organization Address City/State/ZIP Code Phon e Number [facility] - [address] [place], [place] [address] [facility] Glucose, POCT (07/01/2018 5:51 AM CDT) Analysis Performed At Patho logist Time Signature Glucose, POCT, 115 70 - 140 07/01/2018 [facility] B mg/dL 5:52 AM CDT SERVICES Site Capillary 07/01/2018 [facility] 5:52 AM CDT SERVICES Last Intake 3-4 hours 07/01/2018 POC [facility] 5:52 AM CDT SERVICES Specimen Anatomical Collection Method Collection Time Receive d Time (Source) Location / / Volume Laterality Blood 07/01/2018 5:51 AM 9 5:53 CDT AM CDT Unknown Provider LAB POCT ORDERABLES-MANUAL Performing Organization Address City/State/ZIP Code Phon e Number POC [facility] LAB SERVICES [address] [place] [address] (ABNORMAL) Basic Metabolic Panel (07/01/2018 5:50 AM CDT) [facility] gist Method Time Signature Potassium, S 5.1 3.6 - 5.2 07/01/2018 [facility] mmol/L 6:49 AM CDT LABORATORIES - [facility] Sodium, S 138 135 - 145 07/01/2018 [facility] mmol/L 6:49 AM CDT LABORATORIES - [facility] Chloride, S 99 98 - 107 07/01/2018 [facility] mmol/L 6:49 AM CDT LABORATORIES - [facility] Bicarbonate, S 26 22 - 29 07/01/2018 [facility] mmol/L 6:49 AM CDT LABORATORIES - [facility] Anion Gap 13 7 - 15 07/01/2018 [facility] 6:49 AM CDT LABORATORIES - [facility] BUN (Blood 21 6 - 21 07/01/2018 [facility] Urea mg/dL 6:49 AM CDT LABORATORIES - Nitrogen), S [facility] Creatinine 1.14 (H) 0.59 - 07/01/2018 [facility] 1.04 6:49 AM CDT LABORATORIES - mg/dL [facility] eGFR-Non 52 (L) >=60 07/01/2018 [facility] Black/ mL/min/BS 6:49 AM CDT LABORATORIES - [place]an A [facility] Comment: ----ADDITIONAL INFORMATION---- Estimated GFR calculated using the 2009 CKD_EPI creatinine equation. eGFR-Black/ 60 >=60 mL/min/BSA 07/01/2018 6:49 [facility] Eritrean AM CDT LABORATORIES - [facility] Comment: ----ADDITIONAL INFORMATION---- Estimated GFR calculated using the 2009 CKD_EPI creatinine equation. Calcium, Total, S 9.4 8.8 - 10.2 mg/dL 07/01/2018 6:49 AM [facility] CDT LABORATORIES - [facility] S Glucose, S 121 70 - 140 mg/dL 07/01/2018 6:49 AM [facility] CDT LABORATORIES - [facility] S Specimen Anatomical Collection Method Collection Time Receive d Time (Source) Location / / Volume Laterality Blood (Blood, 07/01/2018 5:50 AM 07/02/19 19 6:13 Venous) CDT AM CDT Antelmo Richey P.A.-C. LAB BLOOD ADD-ON Performing Organization Address City/State/ZIP Code Phon e Number [facility] LABORATORIES - [address], [place] [address] [facility] Glucose, POCT (06/30/2018 9:38 PM CDT) [...] Address City/State/ZIP Code Phon e Number POC [facility] LAB SERVICES [address] [place] [address] ECG 12 Lead (06/30/2018 8:54 PM CDT) [facility] gist Method Time Signature Ventricular 64 BPM MUSE Rate ECG/Min [place] Interval 156 ms MUSE QRSD Interval 86 ms MUSE QT Interval 456 ms MUSE QTC Interval 470 ms MUSE P [place] 56 degrees MUSE R [place] 109 degrees MUSE T Wave [place] 68 degrees MUSE CODED DIAGNOSIS Atrial MUSE [...] Provider LAB POCT ORDERABLES-MANUAL Performing Organization Address [facility] Phon e Number POC [facility] [address] [place] [address] Glucose, POCT (06/30/2018 11:18 AM CDT) Analysis [...] Provider LAB POCT ORDERABLES-MANUAL Performing Organization Address City/[facility]/ZIP Code Phon e Number POC [facility] [address] [place] [address] Basic Metabolic Panel (06/30/2018 6:01 AM CDT) Analysis Performed At Patho logist Time Signature Potassium, S 4.4 3.6 - 5.2 06/30/2018 [facility] mmol/L 6:50 AM CDT [facility] Sodium, S 138 135 - 145 06/30/2018 [facility] mmol/L 6:50 AM CDT LABORATORIES [facility] Chloride, S 100 98 - 107 06/30/2018 [facility] mmol/L 6:50 AM CDT LABORATORIES [facility] Bicarbonate, S 24 22 - 29 06/30/2018 [facility] mmol/L 6:50 AM CDT LABORATORIES [facility] Anion Gap 14 7 - 15 06/30/2018 [facility] 6:50 AM CDT LABORATORIES [facility] BUN (Blood Urea 12 6 - 21 06/30/2018 [facility] Nitrogen), S mg/dL 6:50 AM T [facility] Creatinine 0.82 0.59 - 06/30/2018 [facility] 1.04 mg/dL 6:50 AM T [facility] eGFR-Non 77 >=60 06/30/2018 [facility] Black/ mL/min/BSA 6:50 AM CDT LABORATORIES [facility] Comment: ----ADDITIONAL INFORMATION---- Estimated GFR calculated using the 2009 CKD_EPI creatinine equation. eGFR-Black/ 89 >=60 mL/min/BSA 06/30/2018 [facility] Comment: ----ADDITIONAL INFORMATION---- Estimated GFR calculated using the 2009 CKD_EPI creatinine equation. Calcium, Total, S 9.1 8.8 - 10.2 mg/dL 06/30/2018 6:50 AM [facility] CDT [facility] Glucose, S 126 70 - 140 mg/dL 06/30/2018 6:50 AM [facility] Specimen Anatomical Collection Method Collection Time Receive d Time (Source) Location / / Volume Laterality Blood (Blood, 06/30/2018 6:01 AM 07/01/19 19 6:18 Venous) CDT AM CDT Antelmo Richey P.A.-C. LAB BLOOD ADD-ON Performing Organization Address City/State/ZIP Code Phon e Number [facility] LABORATORIES - [address] [place], [place] [address] [facility] (ABNORMAL) CBC with Differential, Blood (06/30/2018 6:01 AM CDT) [facility] Method Time Signature Hemoglobin 13.0 11.6 - 06/30/2018 [facility] 15.0 g/dL 6:26 AM CDT LABORATORIES - [facility] Hematocrit 40.6 35.5 - 06/30/2018 [facility] 44.9 % 6:26 AM CDT LABORATORIES - [facility] Erythrocytes 4.60 3.92 - 06/30/2018 [facility] 5.13 6:26 AM CDT LABORATORIES - x10(12)/L [facility] MCV 88.3 78.2 - 06/30/2018 [facility] 97.9 fL 6:26 AM CDT LABORATORIES [facility] RBC Distrib 13.8 12.2 - 06/30/2018 [facility] Width 16.1 % 6:26 AM CDT LABORATORIES - [facility] Platelet Count 451 (H) 157 - 371 06/30/2018 [facility] x10(9)/L 6:26 AM CDT LABORATORIES - [facility] Leukocytes 9.8 (H) 3.4 - 9.6 06/30/2018 [facility] x10(9)/L 6:26 AM CDT LABORATORIES - [facility] Neutrophils 5.28 1.56 - 06/30/2018 [facility] 6.45 6:26 AM CDT LABORATORIES - x10(9)/L [facility] Lymphocytes 2.89 0.95 - 06/30/2018 [facility] 3.07 6:26 AM CDT LABORATORIES - x10(9)/L [facility] Monocytes 1.29 (H) 0.26 - 06/30/2018 [facility] 0.81 6:26 AM CDT LABORATORIES - x10(9)/L [facility] Eosinophils 0.19 0.03 - 06/30/2018 [facility] 0.48 6:26 AM CDT LABORATORIES - x10(9)/L [facility] Basophils 0.10 (H) 0.01 - 06/30/2018 [facility] 0.08 6:26 AM CDT LABORATORIES - x10(9)/L [facility] Specimen Anatomical Collection Method Collection Time Receive d Time (Source) Location / / Volume Laterality Blood (Blood, 06/30/2018 6:01 AM 07/01/19 19 6:18 Venous) CDT AM CDT Antelmo Richey P.A.-C. LAB BLOOD ADD-ON Performing Organization Address City/[facility]/ZIP Code Phon e Number [facility] LABORATORIES - [address] [place], [place] [address] [facility] Glucose, POCT (06/30/2018 6:00 AM CDT) [...] Provider LAB POCT ORDERABLES-MANUAL Performing Organization Address City/[facility]/ZIP Code Phon e Number POC [facility] LAB SERVICES [address] [place] [address] Magnesium (06/30/2018 5:57 AM CDT) P athologist Signature Magnesium, S 1.8 1.7 - 2.3 06/30/2018 [facility] mg/dL 10:59 AM CDT LABORATORIES - [facility] Specimen Anatomical Collection Method Collection Time Receive d Time (Source) Location / / Volume Laterality Blood (Blood, 06/30/2018 5:57 AM 07/01/19 19 Venous) CDT 10:36 AM CDT Antelmo Richey P.A.-C. LAB BLOOD ADD-ON Performing Organization Address City/[facility]/ZIP Code Phon e Number [facility] LABORATORIES - [address] [place], [place] [address] [facility] DX Chest AP or PA and [...] Total Iron-Binding Capacity (06/29/2018 7:25 PM CDT) [facility] Signature Iron 89 35 - 145 06/29/2018 [facility] mcg/dL 8:45 PM CDT [facility] Total Iron 505 (H) 250 - 400 06/29/2018 [facility] Binding mcg/dL 8:46 PM CDT LABORATORIES [facility] Percent 18 14 - 50 % 06/29/2018 [facility] Saturation 8:46 PM CDT [facility] Specimen Anatomical Collection Method Collection Time Receive d Time (Source) Location / / Volume Laterality Blood (Blood, 06/29/2018 7:25 PM 06/30/19 19 7:49 Venous) CDT PM CDT Alysha Chalres P.A.-C. LAB BLOOD ADD-ON Performing Organization Address City/State/ZIP Code Phon e Number [facility] LABORATORIES - [address] [place], [place] [address] [facility] Lipid Panel (06/29/2018 7:25 PM CDT) P athologist Signature Cholesterol, 156 mg/dL 06/29/2018 [facility] Total 8:45 PM CDT LABORATORIES [facility] Comment: ----REFERENCE VALUE---- Desirable: < 200 Borderline high: 200 - 239 High: > or = 240 Triglycerides 127 mg/dL 06/29/2018 8:45 PM CDT [facility] Comment: ----REFERENCE VALUE---- Normal: <150 Borderline high: 150-199 High: 200-499 Very high: > or =500 Cholesterol, HDL, S 56 >=50 mg/dL 06/29/2018 8:45 PM CDT [facility] Calculated LDL 75 mg/dL 06/29/2018 8:45 PM CDT [facility] Comment: ----REFERENCE VALUE---- Desirable: <100 Above Desirable: 100-129 Borderline high: 130-159 High: 160-189 Very high: > or =190 Cholesterol, Non-HDL, 100 mg/dL 06/29/2018 8:4 5 PM CDT [facility] Comment: ----REFERENCE VALUE---- Desirable: [...] Phon e Number [facility] LABORATORIES - [address] [place], [place] [address] [facility] Prothrombin Time (PT/INR) (06/29/2018 7:25 PM CDT) [facility] Method Time Signature Prothrombin 12.2 9.4 - 12.5 06/29/2018 [facility] Time, P sec 8:08 PM CDT [facility] INR 1.1 0.9 - 1.1 06/29/2018 [facility] 8:08 PM CDT [facility] Comment: ----ADDITIONAL INFORMATION---- Standard intensity warfarin [...] Phon e Number [facility] LABORATORIES - [address] [place], [place] [address] [facility] (ABNORMAL) CBC with Differential, Blood (06/29/2018 7:25 PM CDT) [facility] Method Time Signature Hemoglobin 13.6 11.6 - 06/29/2018 [facility] 15.0 g/dL 7:55 PM CDT LABORATORIES - [facility] Hematocrit 43.1 35.5 - 06/29/2018 [facility] 44.9 % 7:55 PM CDT LABORATORIES - [facility] Erythrocytes 4.92 3.92 - 06/29/2018 [facility] 5.13 7:55 PM CDT LABORATORIES - x10(12)/L [facility] MCV 87.6 78.2 - 06/29/2018 [facility] 97.9 fL 7:55 PM CDT LABORATORIES - [facility] RBC Distrib 13.9 12.2 - 06/29/2018 [facility] Width 16.1 % 7:55 PM CDT LABORATORIES - [facility] Platelet Count 524 (H) 157 - 371 06/29/2018 [facility] x10(9)/L 7:55 PM CDT LABORATORIES - [facility] Leukocytes 10.8 (H) 3.4 - 9.6 06/29/2018 [facility] x10(9)/L 7:55 PM CDT LABORATORIES - [facility] Neutrophils 7.29 (H) 1.56 - 06/29/2018 [facility] 6.45 7:55 PM CDT LABORATORIES - x10(9)/L [facility] Lymphocytes 2.21 0.95 - 06/29/2018 [facility] 3.07 7:55 PM CDT LABORATORIES - x10(9)/L [facility] Monocytes 1.12 (H) 0.26 - 06/29/2018 [facility] 0.81 7:55 PM CDT LABORATORIES - x10(9)/L [facility] Eosinophils 0.10 0.03 - 06/29/2018 [facility] 0.48 7:55 PM CDT LABORATORIES - x10(9)/L [facility] Basophils 0.10 (H) 0.01 - 06/29/2018 [facility] 0.08 7:55 PM CDT LABORATORIES - x10(9)/L [facility] Specimen Anatomical Collection Method Collection Time Receive d Time (Source) Location / / Volume Laterality Blood (Blood, 06/29/2018 7:25 PM 06/30/19 19 7:49 Venous) CDT PM CDT Alysha Charles P.A.-C. LAB BLOOD ADD-ON Performing Organization Address City/[facility]/ZIP Code Phon e Number [facility] LABORATORIES - [address] [place] [address] [facility] (ABNORMAL) S-TSH (Thyroid-Stimulating Hormone - Sensitive) (06/29/2018 7:25 PM CDT) Patholo gist Method Time Signature TSH, Sensitive 4.8 (H) 0.3 - 4.2 06/29/2018 [facility] mIU/L 8:45 PM CDT LABORATORIES [facility] Specimen Anatomical Collection Method Collection Time Receive d Time (Source) Location / / Volume Laterality Blood (Blood, 06/29/2018 7:25 PM 06/30/19 19 7:49 Venous) CDT PM CDT Alysha Charles P.A.-C. LAB BLOOD ADD-ON Performing Organization Address City/[facility] Code Phon e Number [facility] LABORATORIES - [address] [address] [facility] (ABNORMAL) NT-Pro B-Type Natriuretic Peptide (BNP) (06/29/2018 7:25 PM CDT) P athologist Signature NT-Pro BNP 5956 (H) <=177 06/29/2018 [facility] pg/mL 8:45 PM CDT LABORATORIES [facility] Comment: NT-proBNP values less than [...] Phon e Number [facility] LABORATORIES - [address] [place], [place] [address] [facility] Magnesium (06/29/2018 7:25 PM CDT) P athologist Signature Magnesium, S 1.8 1.7 - 2.3 06/29/2018 [facility] mg/dL 8:45 PM CDT LABORATORIES - [facility] Specimen Anatomical Collection Method Collection Time Receive d Time (Source) Location / / Volume Laterality Blood (Blood, 06/29/2018 7:25 PM 06/30/19 19 7:49 Venous) CDT PM CDT Alysha Charles P.A.-C. LAB BLOOD ADD-ON Performing Organization Address City/[facility] Code Phon e Number [facility] LABORATORIES - [address] [address] [facility] (ABNORMAL) Comprehensive Metabolic Panel (06/29/2018 7:25 PM CDT) Patholo gist Method Time Signature Potassium, S 4.7 3.6 - 5.2 06/29/2018 [facility] mmol/L 8:45 PM CDT LABORATORIES - [facility] Sodium, S 136 135 - 145 06/29/2018 [facility] mmol/L 8:45 PM CDT LABORATORIES - [facility] Chloride, S 100 98 - 107 06/29/2018 [facility] mmol/L 8:45 PM CDT LABORATORIES - [facility] Bicarbonate, S 18 (L) 22 - 29 06/29/2018 [facility] mmol/L 8:45 PM CDT LABORATORIES - [facility] Anion Gap 18 (H) 7 - 15 06/29/2018 [facility] 8:45 PM CDT LABORATORIES [facility] BUN (Blood Urea 15 6 - 21 06/29/2018 [facility] Nitrogen), S mg/dL 8:45 PM CDT LABORATORIES [facility] Creatinine 0.81 0.59 - 06/29/2018 [facility] 1.04 mg/dL 8:45 PM CDT LABORATORIES [facility] eGFR-Non 79 >=60 06/29/2018 [facility] Black/ mL/min/BSA 8:45 PM T LABORATORIES [facility] Comment: ----ADDITIONAL INFORMATION---- Estimated GFR calculated using the 2009 CKD_EPI creatinine equation. eGFR-Black/ >90 >=60 mL/min/BSA 06/[facility]/2018 [facility] Comment: ----ADDITIONAL INFORMATION---- Estimated GFR calculated using the 2009 CKD_EPI creatinine equation. Calcium, Total, S 9.7 8.8 - 10.2 06/29/2018 8:45 PM [facility] mg/dL T [facility] Glucose, S 123 70 - 140 mg/dL 06/29/2018 8:45 PM [facility] Protein, Total, S 7.2 6.3 - 7.9 g/dL 06/29/2018 8:45 P M [facility] Albumin, S 4.0 3.5 - 5.0 g/dL 06/29/2018 8:46 PM [facility] Aspartate 20 8 - 43 U/L 06/29/2018 9:24 PM [facility] Aminotransferase (AST), S T LABO RATORIES [facility] Alkaline Phosphatase, S 83 35 - 104 U/L 06/29/2018 8: 45 PM [facility] Alanine Aminotransferase 25 7 - 45 U/L 06/29/2018 10: 54 [facility] (ALT), S PM [facility] Bilirubin, Total, S 0.7 <=1.2 mg/dL 06/29/2018 8:45 PM [facility] Specimen Anatomical Collection Method Collection Time Receive d Time (Source) Location / / Volume Laterality Blood (Blood, 06/29/2018 7:25 PM 06/30/19 19 7:49 Venous) CDT PM CDT Alysha Charles P.A.-C. LAB BLOOD ADD-ON Performing Organization Address City/State/ZIP Code Phon e Number [facility] - [address] [place], [place] [address] [facility] ECG 12 Lead (06/29/2018 6:26 PM CDT) [facility] gist Method Time Signature Ventricular 148 BPM MUSE Rate ECG/Min QRSD Interval 88 ms MUSE QT Interval 350 ms MUSE QTC Interval 549 ms MUSE P [place] -118 degrees MUSE R [place] 96 degrees MUSE T Wave [place] 4 degrees MUSE CODED DIAGNOSIS Atrial MUSE [...] mg of calcium, oral, Every 2 hour [place] N, indigestion, Not to exceed 12 tablets [...] REdilmaNEdilma) 1 application, topical, 3 times daily [place] N, muscle/joint pain, Starting on Fri06/30/18 at [...] documented as of this encounter Care Teams Coverage Specialist Relationship Specialty Start Date End Date Vianney Barrera APRN, C.N.P., PCP - General Internal Medicine 07/06/18 07/26/18 M.S.N. [address] [place] [id number] documented as of this encounter
--- OUTSIDE RECORDS SUMMARY | 2022-02-26 09:13 | XMS_ITS | Encounter Summary ---
:1955 Author Organization [facility] Address [address] [place] [id number] Care Team Providers Name Role Phone Unavailable [...] do you attend taoism or Never 2018 buddhism services? Do you [...]
--- OUTSIDE RECORDS SUMMARY | 2022-02-26 09:13 | XMS_ITS | Encounter Summary ---
:1955 Author Organization [facility] Address [address] [place] [id number] Care Team Providers Name Role Phone Vianney Barrera APRN, C.N.P., M.S.N. Primary Care Provider [phone] Reason for Referral Outpatient (Routine) - Closed Specialty Diagnoses / Referred By Contact Referred To Contact Procedures Cardiovascular Diseases / Diagnoses Flutter Atrial (HCC) Oralia Ricks, [facility] Cardiovascular Disease NO, C.N.P. [address] [place] [phone] Referral ID Status Reason Start Date Expiration Date Visits Requ ested Visits Authorized [id number] Closed 07/03/2018 07/03/2019 1 1 Reason for Visit Reason Onset Date Comments Pre-visit Testing Orders 07/03/2018 Encounter Details Date Type Department Care Team Description 07/03/2018 Clinical Department of [facility] Pre-visit Test ing Communication Cardiovascular Oralia Hernandez, Orders [facility] in [facility], C.N.P. [place], [place] [address] [place] [address] [place] [phone] Social History Tobacco Use Types Packs/Day Years [...] do you attend baptism or Never 2018 jain services? Do you [...] documented as of this encounter Care Teams Coke Oven Patcher Relationship Specialty Start Date End Date Vianney Barrera APRN, C.N.P., PCP - General Internal Medicine 07/06/18 07/26/18 M.S.N. [address] [place] [phone] documented as of this encounter
--- OUTSIDE RECORDS SUMMARY | 2022-02-26 09:13 | XMS_ITS | Encounter Summary ---
:1955 Author Organization [facility] Address [address] [place] [id number] Care Team Providers Name Role Phone Unavailable Primary Care Provider Unavailable Encounter Details Date Type Department Care Team Description 05/04/2013 Hospital Encounter HX RST FIBROMYALGIA Verito Collins, NO, C.N.P., D.N.P., M.S. [address] [place] [phone] (Wo rk) Social History Tobacco Use Types [...] do you attend adventism or Never 2018 yazidism services? Do you [...]
--- OUTSIDE RECORDS SUMMARY | 2022-02-26 09:13 | XMS_ITS | Encounter Summary ---
:1955 Author Organization [facility] Address [address] [place] [id number] Care Team Providers Name Role Phone Unavailable [...] do you attend protestant or Never 2018 yazidi services? Do you [...]
--- OUTSIDE RECORDS SUMMARY | 2022-02-26 09:13 | XMS_ITS | Encounter Summary ---
:1955 Author Organization [facility] Address [address] [place] [id number] Care Team Providers Name Role Phone Unavailable [...] do you attend yazidism or Never 2018 islam services? Do you [...]
== END 2022-02-06 05:40 | disposition home or self-care (01) ==
LOC: AMB 02-26 09:00
PROVIDERS: PCP Family Medicine; Visit Provider Family Medicine
DX: R07.89 Other chest pain (principal)
CPT/HCPCS: A0425; A0427

== ENCOUNTER 2022-02-06 05:58 | Emergency (ER) | payer MEDICARE, MEDICAID, SELFPAY ==
[2022-02-06 06:06] VITALS: BP 153/89; PULSE 71; RESP 18; TEMP 36.1; O2SAT 98
[2022-02-06] MEDS: LORazepam 0.5 MG TABLET PO (06:28)
[2022-02-06] MEDS: FAMOTIDINE 20 MG TABLET PO (06:29)
--- NOTE | 2022-02-06 06:29 | ED_ITS ---
HPI - Chest Pain General Chief Complaint: Chest Pain Stated Complaint: Chest pain Time Seen by Provider: 02/06/22 06:10 Source: patient Mode of arrival: EMS History of Present Illness HPI narrative: 66-year-old female presents to the emergency department by EMS. She has a very frequent Flyer to our emergency department, often with chest pain. She has a notable history of no prior coronary artery disease but she does have a history of prior valvular heart disease and prior PE. She reports good compliance with her Coumadin. She resides in a residential care facility and gets her medications administered to her. She reports that she got up to go to the bathroom this evening, as she often does at about 2-1/2 hours prior to arrival when she had chest pain. When I ask her about localizing she points to the very low substernal/epigastric area. When I ask if it radiates, she does not seem to understand the question well. I asked about shortness of breath and she states that she has asthma but when I asked specifically if she short of breath now she says no then goes on about how she has asthma again. I have cared for this patient in the past and have appreciated that she has some degree of cognitive impairment and is a very poor historian. She notes no swelling in her legs, no productive cough. She denies any fevers. She suspected her symptoms were probably related to anxiety as she gets this often as well. I see 2 other visits for chest pain within the last 5 weeks to the emergency department both of which have had a benign workup. I ask about epigastric and abdominal pain and she says that she has these all the time when I ask if they are worse today or if this is the pain that brings her in she does not understand clearly. It does not sound as though this was new and different for her. She does report that she gets intermittent chest pain. Her pain today was not exertional. She denies any injury or trauma. She states that her appetite has been good and she has been eating normally. There has been no dysuria or flank pain. No upper respiratory symptoms, no known illness exposures. She does not believe that she has had a recent cardiac stress test and I do not see 1 available in the rec ords. She denies any prior history of coronary artery disease but does not clearly understand the question. I review prior records and do not see any prior significant coronary artery disease or recent stress testing. She did not try any interventions prior to coming to the ED for her symptoms but was given aspirin by EMS. Past medical history notable for history of heart valve disease, hypertension, hypothyroidism, migraines, hyperlipidemia, prior DVT. Asthma. Surgically she has had a prior cholecystectomy she believe she has had an appendectomy as well. Heart valve surgery. Socially she is a former smoker, no longer smokes. She resides in a local residential care facility. Multiple risk factors for coronary artery disease. Positive family history as well ROS is notable for the chest pain and anxiety as described above as well as chronic abdominal pain and multiple other ongoing musculoskeletal ailments which she reports are chronic. Otherwise denies times 12 systems. Related Data Home Medications Medication Instructions Recorded Confirmed acetaminophen 325 mg tablet 650 mg PO Q6H PRN pain 12/27/21 01/08/22 albuterol sulfate 90 mcg/actuation 2 puff inhalation Q4H PRN 12/27/21 01/08/22 aerosol inhaler (Ventolin HFA) amitriptyline 50 mg tablet 50 mg PO HS 12/27/21 01/08/22 amlodipine 10 mg tablet 10 mg PO HS 12/27/21 01/08/22 antacid See Rx Instructions PO DAILY PRN 12/27/21 01/08/22 budesonide 0.5 mg/2 mL suspension 0.5 mg inhalation BID 12/27/21 01/08/22 for nebulization diphenhydramine HCl 25 mg capsule 25 mg PO Q8H PRN allergic symptoms 12/27/21 12/27/21 (Banophen) glipizide 5 mg tablet 5 mg PO DAILY 12/27/21 01/08/22 hydroxyzine HCl 25 mg tablet 25 mg PO HS PRN anxiety 12/27/21 01/08/22 levothyroxine 25 mcg tablet 25 mcg PO DAILY 12/27/21 01/08/22 metoprolol succinate 50 mg 50 mg PO DAILY 12/27/21 01/08/22 tablet,extended release 24 hr nitroglycerin 0.4 mg sublingual 0.4 mg sublingual Q5M PRN 12/27/21 01/08/22 tablet polyethylene glycol 3350 17 17 g PO DAILY PRN 12/27/21 01/08/22 gram/dose oral powder rizatriptan 5 mg tablet 5 mg PO DAILY PRN 12/27/21 01/08/22 sennosides 8.6 mg tablet (senna) 8.6 mg PO BID PRN 12/27/21 01/08/22 simvastatin 20 mg tablet 20 mg PO HS 12/27/21 01/08/22 warfarin 2 mg tablet mg 12/27/21 warfarin 4 mg tablet mg 12/27/21 naproxen sodium 220 mg tablet (All 220 mg PO .once weekly PRN 01/08/22 01/08/22 Day Pain Relief) Previous Rx's Medication Instructions Recorded omeprazole 40 mg capsule,delayed 40 mg PO DAILY #14 caps 01/08/22 release Allergies Allergy/AdvReac Type Severity Reaction Status Date / Time No Known Drug Allergies Allergy Verified 01/08/22 16:12 PFSH PFS Social History Smoking Status: Never smoker Do you use any of these nicotine containing products: None Second hand tobacco smoke exposure: No How often do you have a drink containing alcohol: never How often do you have six or more drinks on one occasion: Never AUDIT-C Alcohol total score: 0 Non-prescribed substance use: denies use service: No Exam Const Vital Signs, click to edit/add: Vital Signs - 24 hr 02/06/22 06:06 02/06/22 06:30 Temperature 96.9 F L Pulse Rate [Left Pulse Oximeter] 71 65 Respiratory Rate 18 14 Blood Pressure [Right Upper Arm] 153/89 H 136/84 Pulse Oximetry 98 97 Oxygen Delivery Method Room Air Room Air Documenting provider has reviewed patient's vital signs: yes Other: Anxious, poor historian. Insight seems moderate at best. HENMT Common normals: normocephalic Head and scalp: normocephalic Face and sinus: normal facial exam Mouth: oral and palatal mucosa normal Throat: posterior oropharynx normal Eye Common normals: conjunctivae normal and no scleral icterus Conjunctiva: conjunctiva(e) normal Neck & C-Spine Common normals: full ROM and no lymphadenopathy Chest Common normals: palpation of chest normal (Tenderness to palpation of the sternum clavicular and sternocostal joints) Other: Uncertain of significance of tenderness to palpation, she does not seem to clearly understand the question when I ask her if this is similar to the pain that brings her to the ED. Resp Common normals: normal respiratory effort, no use of accessory muscles and clear to auscultation bilaterally Effort & inspection: able to speak in complete sentences Auscultation: clear to auscultation bilaterally Cardio Common normals: regular rate, regular rhythm, S1 normal heart sound, S2 normal heart sound and peripheral pulses 2+ throughout Rate: regular rate Rhythm: regular rhythm Heart sounds: S1 normal and S2 normal Peripheral pulses: pulses 2+ throughout GI Common normals: no hepatosplenomegaly and no masses Palpation: no hepatosplenomegaly Other: Diffusely tender throughout the abdomen which she tells me is chronic for her. The pain does not localize on exam. Back & Pelvis Common normals: thoracic and lumbar spine normal to inspection and no thoracic nor lumbar tenderness Extremity Common normals: full ROM and no pedal edema Neuro Motor exam: no tremor noted and no movement abnormalities noted Psych Attitude: calm Mood and affect: anxious Insight: limited Judgement: fair Skin Common normals: no rashes or lesions noted General skin exam: no rashes or lesions noted Course Course Hospital Course: Recheck of second troponin was unchanged, no significant delta seen, patient was doing well and emergency department, she denied any chest pain, imaging, EKG and labs otherwise reassuring, plan would be to discharge, she will follow up with primary care provider over the next 7-10 days. Written instructions given per Dr. Sorenson's note. Reasons to return given Vital Signs Vital signs: Initial Vital Signs Temperature 96.9 F L 02/06/22 06:06 Temperature Source Temporal Artery Scan 02/06/22 06:06 Pulse Rate 71 02/06/22 06:06 Pulse Rhythm 02/06/22 06:06 Respiratory Rate 18 02/06/22 06:06 Blood Pressure 153/89 H 02/06/22 06:06 Blood Pressure Mean 110 02/06/22 06:06 Blood Pressure Position Sitting 02/06/22 06:06 Pulse Oximetry 98 02/06/22 06:06 Oxygen Delivery Method 02/06/22 06:06 Vital Signs Temperature 96.9 F L 02/06/22 06:06 Pulse Rate 71 02/06/22 06:06 Respiratory Rate 18 02/06/22 06:06 Blood Pressure 153/89 H 02/06/22 06:06 Pulse Oximetry 98 02/06/22 06:06 Oxygen Delivery Method 02/06/22 06:06 Temperature 96.9 F L 02/06/22 06:06 Pulse Rate 65 02/06/22 06:30 Respiratory Rate 14 02/06/22 06:30 Blood Pressure 136/84 02/06/22 06:30 Pulse Oximetry 97 02/06/22 06:30 Oxygen Delivery Method 02/06/22 06:30 MDM - Chest Pain MDM Narrative Medical decision making narrative: Differential diagnosis includes respiratory disease, cardiac disease, musculoskeletal chest pain, epigastric pain and gastritis, anxiety or malingering to get away from her [place] [facility] which she does frequently. She has multiple risk factors for heart disease however. No tachypnea, no hypoxia and no reported dyspnea. I review the last 2 chest x-rays and will not repeat this today. Basic labs including those to look at stomach issues. Will give 0.5 mg of lorazepam with 20 mg of famotidine. Serial cardiac enzymes, INR and reassess. Update 0720: I went in to reassess jaimee, and ask about if the lorazepam and famotidine helped her chest pain. She starts pressing on her stomach and says she is not sure and I remind her that she is here today for chest pain. She then starts pressing on her chest and nods and says yeah that is fine. When asked to clarify and ask her if the chest pain has resolved, she says yes it has. Final labs will be followed up by my partner. I am not expecting any abnormalities with this. I discussed outpatient management plan with patient and need for follow-up with primary care physician as she has had 3 visits in the last 5 weeks for these similar complaints. Parameters and management to her [place] [facility] team may be helpful. All questions were answered. Medical Records Data Attestation: I reviewed the patient's medical records. Lab Data Attestation: I reviewed the patient's lab results. Labs: Lab Results 02/06/22 02/06/22 02/06/22 Range/Units 06:35 06:35 06:35 WBC 7.28 (4.50-11.00) K/uL RBC 4.22 (4.00-5.20) m/uL Hgb 11.8 L (12.0-16.0) gm/dL Hct 36.5 (33.0-51.0) % MCV 87 (80-100) fL MCH 28 (26-34) pg MCHC 32 (32-36) gm/dL RDW Coeff of Anamika 13.0 (11.5-15.5) % Plt Count 439 (140-440) K/uL Neut % (Auto) 41.7 L (42.0-72.0) % Lymph % (Auto) 42.6 (20-44) % [place] % (Auto) 8.4 (0.0-11.0) % Eos % (Auto) 5.6 (0.0-7.0) % Baso % (Auto) 1.2 (0.0-3.0) % Neut # (Auto) 3.00 (1.7-7.0) K/uL Lymph # (Auto) 3.10 H (0.90-2.90) K/uL [place] # (Auto) 0.60 (0.00-0.90) K/UL Eos # (Auto) 0.41 (0.00-0.50) K/uL Baso # (Auto) 0.09 (0.00-0.30) K/uL Abs Immat Gran (auto) 0.04 (0.00-0.30) K/uL Imm/Tot Granulo (auto) 0.5 % INR (0.91-1.10) Sodium 139 (135-149) mmol/L Potassium 4.1 (3.6-5.1) mmol/L Chloride 104 (96-114) mmol/L Carbon Dioxide 27 (20-32) mmol/L BUN 11 (7-30) mg/dL Creatinine 0.7 (0.5-1.5) mg/dL Estimated GFR 97 ml/min Glucose 129 H (60-115) mg/dL Calcium 8.8 (8.4-10.6) mg/dL Total Bilirubin 0.3 (0.1-1.5) mg/dL AST 25 (12-35) U/L ALT 29 (4-35) U/L Alkaline Phosphatase 86 (40-150) U/L Troponin I < 0.01 L Cancelled (0.01-0.04) ng/mL C-Reactive Protein 0.8 Cancelled (0.5-1.0) mg/dL NT-Pro-B Natriuret Pep 153 H (0-125) PG/mL Total Protein 7.5 (6.0-8.3) g/dL Albumin 4.4 (3.3-5.0) g/dL POC Troponin I (0.01-0.04) ng/ml 02/06/22 02/06/22 02/06/22 Range/Units 06:35 06:35 06:35 WBC (4.50-11.00) K/uL RBC (4.00-5.20) m/uL Hgb (12.0-16.0) gm/dL Hct (33.0-51.0) % MCV (80-100) fL MCH (26-34) pg MCHC (32-36) gm/dL RDW Coeff of Anamika (11.5-15.5) % Plt Count (140-440) K/uL Neut % (Auto) (42.0-72.0) % Lymph % (Auto) (20-44) % [place] % (Auto) (0.0-11.0) % Eos % (Auto) (0.0-7.0) % Baso % (Auto) (0.0-3.0) % Neut # (Auto) (1.7-7.0) K/uL Lymph # (Auto) (0.90-2.90) K/uL [place] # (Auto) (0.00-0.90) K/UL Eos # (Auto) (0.00-0.50) K/uL Baso # (Auto) (0.00-0.30) K/uL Abs Immat Gran (auto) (0.00-0.30) K/uL Imm/Tot Granulo (auto) % INR 1.80 H (0.91-1.10) Sodium (135-149) mmol/L Potassium (3.6-5.1) mmol/L Chloride (96-114) mmol/L Carbon Dioxide (20-32) mmol/L BUN (7-30) mg/dL Creatinine (0.5-1.5) mg/dL Estimated GFR ml/min Glucose (60-115) mg/dL Calcium (8.4-10.6) mg/dL Total Bilirubin (0.1-1.5) mg/dL AST (12-35) U/L ALT (4-35) U/L Alkaline Phosphatase (40-150) U/L Troponin I (0.01-0.04) ng/mL C-Reactive Protein (0.5-1.0) mg/dL NT-Pro-B Natriuret Pep Cancelled (0-125) PG/mL Total Protein (6.0-8.3) g/dL Albumin (3.3-5.0) g/dL POC Troponin I 0.00 L (0.01-0.04) ng/ml ECG Data Attestation: I personally reviewed and interpreted this ECG as follows: Prior ECG tracings: available for review Interpretation: Normal sinus rhythm with no significant ST or T-wave abnormalities. Normal axis, pretty good R-wave progression also. Similar to visit less than 2 weeks ago. Discharge Plan Discharge Clinical Impression: Atypical chest pain Patient Disposition: [facility] Condition: Improved Instructions: Chest Pain (DC) Additional Instructions: There are no signs that your chest pain is related to your heart. Like you suspected, I do think anxiety and emotions play a large factor in this for you. Your blood work is reassuring, your INR is therapeutic. Your given stomach acid medicine and antianxiety medicine which seemed helpful. Would recommend that you make a follow-up appointment with her primary care doctor in a week to further discuss her chest pain and decide if any further workup is needed and to discuss a plan of care for this in your [place] [facility], as you have had 3 visits for this in the emergency department in the last 5 weeks. Activity Level: No Restrictions Discharge Diet: Regular Prescriptions: No Action acetaminophen 325 mg tablet 650 mg PO Q6H PRN (Reason: pain) amitriptyline 50 mg tablet 50 mg PO HS amlodipine 10 mg tablet 10 mg PO HS budesonide 0.5 mg/2 mL suspension for nebulization 0.5 mg inhalation BID glipizide 5 mg tablet 5 mg PO DAILY levothyroxine 25 mcg tablet 25 mcg PO DAILY metoprolol succinate 50 mg tablet extended release 24 hr 50 mg PO DAILY simvastatin 20 mg tablet 20 mg PO HS antacid suspension See Rx Instructions PO DAILY PRN Rx Instructions: 15-30ml orally daily PRN; sennosides [senna] 8.6 mg tablet 8.6 mg PO BID PRN rizatriptan 5 mg tablet 5 mg PO DAILY PRN Rx Instructions: may repeat once after 2 hours polyethylene glycol 3350 17 gram/dose powder 17 g PO DAILY PRN albuterol sulfate [Ventolin HFA] 90 mcg/actuation HFA aerosol inhaler 2 puff INHALATION Q4H PRN diphenhydramine HCl [Banophen] 25 mg capsule 25 mg PO Q8H PRN (Reason: allergic symptoms) Rx Instructions: 1-2 caps prn hydroxyzine HCl 25 mg tablet 25 mg PO HS PRN (Reason: anxiety) nitroglycerin 0.4 mg tablet, sublingual 0.4 mg sublingual Q5M PRN Rx Instructions: max 3 tabs within 15 minutes warfarin 2 mg tablet Rx Instructions: DIRECTED warfarin 4 mg tablet Rx Instructions: DIRECTED naproxen sodium [All Day Pain Relief] 220 mg tablet 220 mg PO .once weekly PRN omeprazole 40 mg capsule,delayed release(DR/EC) 40 mg PO DAILY Qty: 14 0RF Stand Alone Forms: [facility] Instructions
[2022-02-06 06:30] VITALS: BP 136/84; PULSE 65; RESP 14; O2SAT 97
[2022-02-06 06:47] LABS: Basophils Absolute Auto 0.09 K/uL (0.00-0.30); Basophils Percent Auto 1.2 % (0.0-3.0); Eosinophils Absolute Auto 0.41 K/uL (0.00-0.50); Eosinophils Percent Auto 5.6 % (0.0-7.0); Hematocrit 36.5 % (33.0-51.0); Hemoglobin* 11.8 gm/dL (12.0-16.0); Immature Granulocytes Abs Auto 0.04 K/uL (0.00-0.30); Immature Granulocytes Pct Auto 0.5 %; Lymphocytes Percent Auto 42.6 % (20-44); Mean Corpuscular HGB Conc 32 gm/dL (32-36); Mean Corpuscular Hemoglobin 28 pg (26-34); Mean Corpuscular Volume 87 fL (80-100); Monocytes Percent Auto 8.4 % (0.0-11.0); Neutrophils Percent Auto 41.7 % (42.0-72.0); Platelet Count* 439 K/uL (140-440); Red Blood Count 4.22 m/uL (4.00-5.20); White Blood Count* 7.28 K/uL (4.50-11.00)
--- OUTSIDE RECORDS SUMMARY | 2022-02-06 06:47 | XMS_ITS | Clinical Summary ---
:1955 Author Organization [employer] [facility] [place] [address] Care Team Providers Name Role Phone Kandace Mckeon Primary Care Provider Parish Ruffin MD Unavailable Unavailable Kwaku Wild MD Unavailable Kari Hunt PhD, LP Unavailable [phone] Allergies Active Allergy Reactions Severity Noted Date [...] affected area(s) Tinea cruris 3 times daily. warfarin (COUMADIN) Not currently 0 08/31/19 Active [...] - Test 2 times/day. Reason: High A1C Gavilax 17 As directed 1 1530 g [...] TABLET BY 30 Tablet 12 05/03/19 Act suagr (GLUCOTROL) 5 mg MOUTH DAILY 22 tabletIndications: [...] 12 10/22/19 Active mcg/actuation MOUTH EVERY 4 inhalerIndications: HOURS NEEDED Mild persistent asthma without complication rizatriptan TAKE 1 TABLET BY 12 Tablet 5 12/04/19 A ctive (MAXALT) 5 mg MOUTH DAILY 22 tabletIndications: NEEDED FOR Migraine without MIGRAINE *MAY aura and without REPEAT ONCE AFTER status migrainosus, 2 HOURS* not intractable warfarin (COUMADIN) 0 11/22/19 Active 4 mg tablet 22 acetaminophen TAKE 2 TABLETS 60 Tablet 5 01/09/20 A ctive (TYLENOL) 325 mg EVERY 4-6 HOURS 22 tabletIndications: NEEDED FOR 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 omeprazole Take 1 Capsule 90 Capsule 0 01/15/20 Act sugar (PRILOSEC) 40 mg (40 mg) by mouth 22 Delayed-Release once daily before capsuleIndications: a meal. Chronic GERD warfarin (COUMADIN) Take 6mg on 72 Tablet 0 02/06/20 Active 2 mg 02/05, then Take 22 tabletIndications: by mouth 6 mg (2 New onset atrial mg x 3 tablets) fibrillation (HC), every Fri, Wed, Anticoagulation Fri; 4 mg (2 mg x monitoring, INR 2 tablets) all range 2.5-3.5 other days in the evening OR as directed. Next INR 03/05/22. famotidine (PEPCID) Take 1 Tablet (20 180 Tablet 3 07/06/19 1 Discontinued 20 mg mg) by mouth 2 (*Med tabletIndications: times daily. complete/Regime Chronic GERD n complete/L evel of care ch elizabet) sennosides (SENNA) Take 1 Tablet 180 Tablet 2 02/23/20 Discontinued 8.6 mg (8.6 mg) by mouth (* Med tabletIndications: 2 times daily if complete/Regime Irritable bowel needed for n syndrome with both Constipation. complete/Level constipation and of care change) diarrhea acetaminophen Take 2 tablets 90 Tablet 1 07/07/19 D iscontinued (TYLENOL) 325 mg every 4-6 hours 22 022 tabletIndications: as needed for 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 warfarin (COUMADIN) Take by mouth 6 34 Tablet 0 12/28/1912/23 0 Discontinued 2 mg mg (2 mg x 3 22 022 (Reorde r tabletIndications: tablets) every (E-cancel not New onset atrial Sun, Wed, Fri; 4 sent)) fibrillation (HC), mg (2 mg x 2 Anticoagulation tablets) all monitoring, INR other days in the range 2.5-3.5 evening OR as directed warfarin (COUMADIN) Take by mouth 6 34 Tablet 0 01/11/2012/24 Discontinued 2 mg mg (2 mg x 3 22 022 (Reorde r tabletIndications: tablets) every (E-cancel not New onset atrial Sun, Wed, Fri; 4 sent)) fibrillation (HC), mg (2 mg x 2 Anticoagulation tablets) all monitoring, INR other days in the range 2.5-3.5 evening OR as directed warfarin (COUMADIN) Take by mouth 6 37 Tablet 0 01/22/2001/22 Discontinued 2 mg mg (2 mg x 3 22 022 (Reorde r tabletIndications: tablets) every (E-cancel not New onset atrial Sun, Wed, Fri; 4 sent)) fibrillation (HC), mg (2 mg x 2 Anticoagulation tablets) all monitoring, INR other days in the range 2.5-3.5 evening OR as directed Active Problems Patient Care Coordination Note Formatting [...] barriers? Health and ex Problem Noted Date Chronic constipation 01/15/2022 Type 2 diabetes mellitus with hyperglycemia, without [...] Encounters Date Type Specialty Care Team Description 02/05/2022 Anticoagulation 1, [facility] 02/04/2022 Orders Only Lab, [facility] 02/04/2022 Travel 01/23/2022 Office Visit Kari Hunt, PhD, LP 01/23/2022 Travel 01/21/2022 Anticoagulation 1, [facility] (warfarin) Clinic 01/18/2022 Orders Only Lab, [facility] 01/18/2022 Travel 01/16/2022 Office Visit Kari Hunt, PhD, LP 01/16/2022 Travel 01/14/2022 Office Visit Kandace Mckeon Chest Pain (3 weeks); Venus, DO Cramping (abdom inal cramping, BM espinoza lf hour after each time she eats) 01/14/2022 Telephone DetertKandace Anticoagulati on (BPA Venus, DO omeprazole/warf leon) 01/14/2022 Travel 01/09/2022 Anticoagulation 1, [facility] ([facility]) (warfarin) Clinic 01/08/2022 Orders Only Lab, [facility] 01/08/2022 Orders Only Scanner <No scans attac hed> 01/08/2022 Nurse Triage DetererynBonifacioKandace Chest Pain Venus, DO 01/08/2022 Travel 01/07/2022 Refill Detert, Kandace Refill Reques t Venus, DO (Acetaminophen) 12/27/2021 Orders Only Scanner <No scans attac hed> 12/27/2021 Anticoagulation 1, [facility] (warfarin) Clinic 12/26/2021 Orders Only Lab, [facility] 12/26/2021 Office Visit Kari Hunt Individual Kimberly; RACHEL Chaparro, PhD, Trmt Plan 12/26/2021 Travel 12/20/2021 Anticoagulation 1, [facility] (warfarin) Clinic 12/19/2021 Orders Only Lab, [facility] 12/19/2021 Travel 12/12/2021 Office Visit Kandace Mckeon Diabetes; Venus, DO Immunization/In jection 12/12/2021 Anticoagulation 1, [facility] (warfarin) Clinic 12/11/2021 Orders Only Lab, [facility] 12/11/2021 Travel 12/11/2021 Telephone Detert Kandace Anticoagulati on (AC Venus, DO Orders) 12/06/2021 [...] [facility] 11/13/2021 Ancillary Procedure 11/13/2021 Telephone DeterBonifacio cernaara Results (INR) DO V[place]u 11/13/2021 Travel 11/07/2021 Anticoagulation 1, [facility] ([facility]) (warfarin) Clinic 11/06/2021 Orders Only Lab, [facility] 11/06/2021 Travel from Last 3 Months Immunizations Name Administration Dates Next Due AMB Influenza, IIV4 PF (=>6 mos 12/23/2019 Flulaval,Fluzone Fluarix)(Flu Clinic Only) COVID-19 vaccine (Moderna 05/04/2020, 04/06/2020 100mcg/0.5mL) PF, MDV COVID-19 vaccine ([place] 01/19/2021 30mcg/0.3mL) PF, MDV Influenza RIV4 (Age [...] in contact with No / Unsu re 02/04/2022 1:02 PM BOILERMAKER FITTER someone who was confirmed or suspected to have Coronavirus/COVID-19? Obstetrics History Last Filed Vital Signs Vital Sign Reading Time Taken Comments Blood Pressure 122/84 01/14/2022 2:15 PM CDT Pulse 76 01/14/2022 2:15 PM CDT Temperature 37.1 ??C (98.7 ??F) 06/22/2021 10:09 AM CDT Respiratory Rate 18 07/29/2018 2:35 PM CDT Oxygen Saturation 97% 01/14/2022 2:15 PM CDT Inhaled Oxygen Concentration - - Weight 90.4 kg (199 lb 6.4 oz) 01/14/2022 2:15 PM CDT Height 164 cm (5' 4.57) 08/08/2021 2:56 PM CDT Body Mass Index 33.63 08/08/2021 2:56 PM CDT Plan of Treatment Upcoming Encounters Date Type Specialty Care Team Description 02/06/2022 Office Visit Kari Hunt, PhD, LP [address] [place], [place] [address] (Tiffanie richter) 02/25/2022 Office Visit Kandace Mckeon ea, DO [address] [place], [place] [address] (Tiffanie richter) 04/04/2022 Office Visit Raulito Bruce, PhD, LP [address] [facility] [address] [place] [address] (Tiffanie richter) 06/12/2022 Office Visit Kandace Mckeon ea, DO [address] [place], [place] [address] (Wo rk) Health Maintenance Due Date Last Done Comments HIV for age 15-65 1972 Zoster (shingles) series for age 1203/11/2007 50+ (1 of 2) Pneumococcal series for age 19-64 04/05/2016 04/05/2015, (2 - PCV) COVID-19 vaccine series (4 - 03/16/2021 01/19/2021, 021, Booster for Moderna series) 04/06/2020 Tetanus booster 01/21/2022 01/22/2012, 05/24/2009 BMI (ht and wt on same day) for 08/08/2022 08/08/2021, 08/22, age 18+ 07/19/2019, Additional history exists Mammogram for age 45-75 11/13/2022 11/13/2021, 10/19/2020, 12/27/2016, Additional history exists Depression screening for age 12+ 01/18/2023 01/18/2022, , 01/14/2022, Additional history exists Lipids for age 45-75 [...] Yes Terence, providers by Reny Miranda, 06/21/17 PLATE CORRECTOR Note: Formatting of this note might be d ifferent from the original. - appointment with dental provider by - appointment for DM eye exam and new ey eglasses by 06/21/17 Healthcare Directive General Yes Kam hayReny, PLATE CORRECTOR Note: Formatting of this note might be d ifferent from the original. - work on completing healthcare directiv e by end of ACT episode Procedures Procedure Name Priority Date/Time Associated Diagnosis Comme nts PROTIME-INR STAT 02/04/2022 1:19 New onset atrial Results for this PM BOILERMAKER FITTER fibrillation (HC ) procedure are in Anticoagulation the results monitoring, INR range sectio n. 2.5-3.5 PROTIME-INR STAT 01/18/2022 11:43 New onset atrial Results for this AM CDT fibrillation (HC ) procedure are in Anticoagulation the results monitoring, INR range sectio n. 2.5-3.5 PROTIME-INR STAT 01/08/2022 2:38 New onset atrial Results for this PM CDT fibrillation (HC ) procedure are in Anticoagulation the results monitoring, INR range sectio n. 2.5-3.5 SCAN-RADIOLOGY 01/08/2022 12:00 Results f or this REPORT AM CDT procedure are i n the results section. SCAN-RADIOLOGY 12/27/2021 12:00 Results f or this [...] from Last 3 Months Results (ABNORMAL) PROTIME-INR (02/04/2022 1:19 PM BOILERMAKER FITTER)Only the most recent of9 results within the time period is included. P athologist Signature INR 2.5 (H) <1.3 02/04/2022 [facility] 8:16 PM BOILERMAKER FITTER LABORATORY[facility] PROTIME 26.3 (H) 12.0 - 13.8 02/04/20[facility] PM BOILERMAKER FITTER [facility]ATORY[facility] Specimen Anatomical Collection Method / Collection Time Recei dominguez Time (Source) Location / Volume Laterality Blood BLOOD SPECIMEN / Venipuncture / 02/04/2022 1:19 2021 1:21 Unknown Unknown PM BOILERMAKER FITTER PM BOILERMAKER FITTER Narrative [facility] LABORATORY-CENTRAL LABORAT ORY - 02/04/2022 8:16 PM BOILERMAKER FITTER ?Therapeutic Range 2.0-3.0 for most anticoagulated patients [...] Organization Address City/State/ZIP Code Phon e Number [address] [employer] [place] [address] LABORATORY-CENTRAL 2000 LABORATORY SCAN-RADIOLOGY REPORT (01/08/2022 12:00 AM CDT)Only the most recent of2 results within the time period is included. Narrative This result has an attachment that is no t available. Scanner OTHER (ABNORMAL) URINE ALBUMIN TO CREATININE RATIO, RANDOM (12/19/2021 1:43 PM CDT) [facility] Method Time Signature ALB RAND URINE 69.6 mg/L 12/20/2021 [facility] [employer] 6:57 AM CDT LABORATORY-[facility] TRAL LABORATORY CREATININE,URIN 0.65 g/L 12/20/2021 [facility] 6:57 AM CDT LABORATORY-[facility] TR[facility] LABORATORY ALBUMIN TO 107.1 (H) <30.0 12/20/2021 [facility] [employer] CREATININE mg/g 6:57 AM CDT LABORATORY-[facility] RATIO,RAND UR creat TRAL LABORATORY Specimen Anatomical Collection Method Collection Time Receive d Time (Source) Location / / Volume Laterality Urine URINE SPECIMEN / Non-Blood / 12/19/2021 1:43 PM 12/19 1:43 Unknown Unknown CDT PM CDT Narrative [facility] [employer] LABORATORY-CENTRAL LABORAT ORY - 12/20/2021 6:57 AM [...] Organization Address City/State/ZIP Code Phon e Number [address] [employer] [address] [place] [address] LABORATORY-CENTRAL 2000 LABORATORY (ABNORMAL) HEMOGLOBIN A1C MONITORING (POCT) (12/12/2021 2:19 PM CDT) Analysis Performed At [facility] Signature HEMOGLOBIN A1C 6.5 (H) <=6.4 % 12/12/2021 [facility] MONITORING 2:32 PM CDT [facility] Specimen Anatomical Collection Method / Collection Time Recei dominguez Time (Source) Location / Volume Laterality Blood BLOOD SPECIMEN / Venipuncture / 12/12/2021 2:19 2021 2:23 Unknown Unknown PM CDT PM CDT Narrative [facility] - 2021 2:32 PM CDT ? (<=6.9%) [...] Organization Address City/State/ZIP Code Phon e Number [facility] [address] [place] [address] (ABNORMAL) BASIC METABOLIC PANEL (12/12/2021 2:19 PM CDT) Analysis Performed At [facility] Signature SODIUM 139 135 - 145 12/13/2021 [facility] mmol/L 2:26 PM CDT - [facility] LABORATORY POTASSIUM 3.9 3.5 - 5.0 12/13/2021 [facility] mmol/L 2:26 PM CDT - [facility] LABORATORY CHLORIDE 103 98 - 110 12/13/2021 [facility] mmol/L 2:26 PM CDT - [facility] LABORATORY CO2,TOTAL 27 21 - 31 12/13/2021 [facility] mmol/L 2:26 PM [facility]ORAT[facility] ANION GAP 9 5 - 18 12/13/2021 [facility] 2:26 PM [facility] LABOR[facility]ORY GLUCOSE 205 (H) 65 - 100 12/13/2021 [facility] mg/dL 2:26 PM [facility]OR[facility] CALCIUM 9.1 8.5 - 10.5 12/13/2021 [facility] mg/dL 2:26 PM [facility] LABORATORY BUN 10 8 - 25 12/13/2021 [facility] mg/dL 2:26 PM [facility] LABORATORY CREATININE 0.99 0.57 - 12/13/2021 [facility] 1.11 mg/dL 2:26 PM [facility] LABORATORY BUN/CREAT RATIO 10 10 - 20 12/13/2021 [facility] L 2:26 PM [facility] LABORATORY eGFR 64 (L) >90 12/13/2021 [facility] mL/min/1.7 2:26 PM [facility] 3m2 LABORATORY Comment: As of 2021, eGFR [...] City/State/ZIP Code Phon e Number [facility] INTERNAL ZIP [address] [place] [address] [facility] [address] SCAN-EYE EXAM (12/06/2021 [...] provider. If you have questions, please contact [facility] care provider. XR MAMMO CRYSTAL BILAT SCREEN [[id number]] CLINICAL HISTORY: ??This is an asymptoma tic 66 y.o. patient. INDICATION FOR EXAM: Mammogram Screening . TECHNIQUE: CC & MLO views were obtained. ??This study was evaluated with the assistance of Computer-Aided Detecti on. Breast Tomosynthesis was used in interpretation. COMPARISON FILM: Yes 10/19/20 [facility] 12/27/16 [facility] FINDINGS: ??The breasts have scattered a reas of fibroglandular density. There are no dominant masses, suspicious micro calcifications or areas of architectural distortion. Kandace Mckeon DO MAMMO from Last 3 Months Insurance Payer Benefit Plan / Subscriber ID Effective Dates Phone Addre ss Type Group MEDICARE PART B MEDICARE PART [id number] 2004-Presen ATTN: CLAIMS - HB USE ONLY B HB ONLY t [address] [place] [address] MEDICARE PPS HC MEDICARE [id number] 2004-Presen PO JASE X [address] [place] [address] MEDICARE - PB MEDICARE PB [id number] 2004-Presen ATTN : CLAIMS USE ONLY ONLY t [address] [place] [address] UCARE [place] UCARE CONNECT [id number] 2021-Presen [address] [place] [address] Juni Metcalf Personal/Family Self 1955 [place] (Home) [address] [place] [address] Care Teams Hydraulic Blocker Relationship Specialty Start Date End Date Kandace Mckeon DO PCP - General 12/25/09 [address] [place] [address] Parish Ruffin MD Pulmonology Pulmonary Medicine 12/04/11 Kwaku Wild MD Physical Medicine and 10/07/[address] [place] [address] Kari Hunt, Psychologist Psychology 12/10/16 PhD, LP [address] [place] [address]
--- OUTSIDE RECORDS SUMMARY | 2022-02-06 06:47 | XMS_ITS | Encounter Summary ---
:1955 Author Organization [facility] Address [address] [place] [address] Care Team Providers Name Role Phone Elsewhere, Pcp Primary Care Provider Unavailable Reason for Visit MRI/CAT/PET Scan (Routine) - Authorized Specialty Diagnoses / Procedures Referred By Contact Refer red To Contact Radiology Diagnoses Mass Kidney Arun Waterman M.D. [facility] Procedures CT Abdomen Ablation [address] [place] [address] Referral ID Status Reason Start Date Expiration Date Visits V isits Requested Authorized [id number] Authorized 05/08/2021 05/08/2022 1 1 Encounter Details Date Type Department Care Team Description 06/26/2021 Hospital Encounter Department of Arun Waterman M.D. [address] [place] [phone] Canceled (Patient: Radiology, Wily Dale M.D. [address] [place] [phone] Request) [facility] in [place], [place] [address] [place] [address] Social History Tobacco Use Types Packs/Day Years [...] do you attend holiness or Never 2018 baptism services? Do you [...] documented as of this encounter Care Teams Mushroom Cutter Relationship Specialty Start Date End Date Elsewhere, Pcp PCP - General Internal Medicine 07/27/18 documented as of this encounter
--- OUTSIDE RECORDS SUMMARY | 2022-02-06 06:47 | XMS_ITS | Clinical Summary ---
:1955 Author Organization [facility] Address [address] [place] [address] Care Team Providers Name Role Phone Elsewhere, Pcp Primary Care Provider Unavailable Source Comments Patient records contain information from all sites at [facility]. For routine questions regarding patient records, call [phone] during business hours, M-F 8:00 AM - 5:00 PM Central Time. Record requests for emergency care only can be directed to [phone] at any time.[facility] Allergies Active Allergy Reactions Severity Noted [...] Dr. Yeager on 04/20/2019 -admitted at the [facility] from 06/22/2018 - 06/23/2018, [...] [facility] Fibromyalgia 06/28/2015 Overview: On duloxetine. Pain [...] do you attend judaism or Never 2018 bahai services? Do you belong to any clubs or No 02/26/2019 organizations such as judaism groups, unions, fraWhat's More Alive Than You or athletic groups, or school groups? How [...] Comments Blood Pressure 148/86 03/30/2020 1:16 PM SLEEPING CAR SERVICE ATTENDANT Pulse 61 03/30/2020 1:16 PM SLEEPING CAR SERVICE ATTENDANT Temperature 36.1 ??C (97 ??F) 03/30/2020 1:16 PM SLEEPING CAR SERVICE ATTENDANT Respiratory Rate 22 04/21/2019 11:15 AM SLEEPING CAR SERVICE ATTENDANT Oxygen Saturation 98% 03/30/2020 1:16 PM SLEEPING CAR SERVICE ATTENDANT Inhaled Oxygen Concentration - - Weight 90.2 kg (198 lb 13.7 oz) 03/30/2020 1:16 PM SLEEPING CAR SERVICE ATTENDANT Height 164.4 cm (5' 4.72) 03/30/2020 1:16 PM SLEEPING CAR SERVICE ATTENDANT Body Mass Index 33.37 03/30/2020 1:16 PM SLEEPING CAR SERVICE ATTENDANT Plan of Treatment Health Maintenance Due Date [...] 03/24/2021 PHQ-2) Hemoglobin A1C 10/30/2021 05/02/2021, 07/15/2012 DTaP,Tdap,and Td Vaccines (2 - Td 01/21/2022 01/22/2012, , or Tdap) 05/24/2009 Creatinine Level 05/02/2022 05/02/2021, 05/02/2021, 11/24/2020, Additional history exists Potassium Level 05/02/2022 05/02/2021, 11/24/2020, 06/22/2020, Additional history exists Sodium Level 05/02/2022 05/02/2021, 11/24/2020, 06/22/2020, Additional history exists Lipid (Cholesterol) Screening 06/15/2024 06/16/2019, 2018, 01/22/2011 (Performed elsewhere) Hepatitis C Screening Completed 12/11/2018 Influenza Vaccine Completed 12/12/2021, 01/19/2021, 12/23/2019, Additional history exists Insurance Payer Benefit Plan Subscriber ID Effective Phone Address Typ e / Group Dates MEDICARE MEDICARE A [id number] 2004-Prese [address] [place] [address] [facility] CONNECT [id number] 2021-Prese [phone] [address] Medicaid HMO nt [address] [place] [address] Advance Directives For more information, please contact: [phone] Latest Code Status on File Code Status [...] Due to: Patient not available Care Teams Check And Transfer Beader Relationship Specialty Start Date End Date Elsewhere, Pcp PCP - General Internal Medicine 07/27/18
--- OUTSIDE RECORDS SUMMARY | 2022-02-06 06:47 | XMS_ITS | Encounter Summary ---
:1955 Author Organization [facility] Address [address] [place] [address] Care Team Providers Name Role Phone Elsewhere, Pcp Primary Care Provider Unavailable Encounter Details Date Type Department Care Team Description 05/09/2021 Clinical Communication Department of [place] Radiology, Homar Leon R.N. [facility] [phone] [place] ([facility]) [address] [place] [phone] Social History Tobacco Use Types Packs/Day Years [...] do you attend evangelical or Never 2018 temple services? Do you [...] documented as of this encounter Care Teams Inspector Watch Train Relationship Specialty Start Date End Date Elsewhere, Pcp PCP - General Internal Medicine 5/6/19 documented as of this encounter
--- OUTSIDE RECORDS SUMMARY | 2022-02-06 06:47 | XMS_ITS | Encounter Summary ---
:1955 Author Organization [facility] Address [address] [place] [address] Care Team Providers Name Role Phone Elsewhere, Pcp Primary Care Provider Unavailable Reason for Visit Outpatient (Routine) - Closed Specialty Diagnoses / Procedures Referred By Contact Refer red To Contact Radiology Diagnoses Mass Kidney Ally Bar M.D. [address] [phone] Referral ID Status Reason Start Date Expiration Date Visits Requ ested Visits Authorized [id number] Closed 05/03/2021 05/03/2022 1 1 Encounter Details Date Type Department Care Team Description 05/09/2021 Virtual Visit Department of Ally Bar M.D. [address] [place] [phone] Mass Kidney (Primary Dx); Radiology, Cristy Sands APRN, C.N.P., M.S.N. [address] [place] [phone] Atrial Fibrillation Paroxysmal (HCC); [facility], in Unsteadin ess Gait Disorder Non Orthopedic; [place], [place] Anticoagulant Therapy [address] [place] [address] Social History Tobacco Use Types [...] do you attend evangelical or Never 2018 catholic services? Do you [...] Procedure: ABLATION - PVI; Surgeon: Marla Yeager M.B.B.SdEilma; Location: [facility] ??? CATH ABLATION [...] page the Ablation Radiology nurse pager at [phone] Friday through Friday 7 a.m. to 5 p.m. or contact the note author. We spent over half of a total 30 minutes with the patient in counseling and discussion and/or coordination of care as described above. EMAN documented in this encounter Plan of Treatment Not on filedocumented as of this encounter Visit Diagnoses Diagnosis Mass Kidney - Primary Atrial Fibrillation Paroxysmal (HCC) Unsteadiness Gait Disorder Non Orthopedi c Anticoagulant Therapy documented in this encounter Additional Health Concerns Assessment Noted Time PHQ-9 Depression Total Score: 11 05/04/2013 4:05 PM CS T documented as of this encounter Care Teams Process Tank Tender Relationship Specialty Start Date End Date Elsewhere, Pcp PCP - General Internal Medicine 07/27/18 documented as of this encounter
--- OUTSIDE RECORDS SUMMARY | 2022-02-06 06:47 | XMS_ITS | Encounter Summary ---
:[address] [facility] Address [address] [place] [address] Care Team Providers Name Role Phone Elsewhere, Pcp Primary Care Provider Unavailable Encounter Details Date Type Department Care Team Description 05/09/2021 Orders Only Department of [place] [facility] Lab Exam (Primary Dx); Radiology, Gayla Leon R.N. Contact With And (Suspected) Exposure To [address] in [phone] [place], [place] (Work) [address] [place] [phone] Social History Tobacco Use Types Packs/Day Years [...] or relatives? How often do you attend restoration or Never 2018 episcopalian services? Do you belong to any clubs or No 02/26/2019 organizations such as restoration groups, unions, fraternal or athletic groups, or [...] documented as of this encounter Care Teams Cam Specialist Relationship Specialty Start Date End Date Elsewhere, Pcp PCP - General Internal Medicine 07/27/18 documented as of this encounter
--- OUTSIDE RECORDS SUMMARY | 2022-02-06 06:47 | XMS_ITS | Encounter Summary ---
:1955 Author Organization [facility] Address [address] [place] [address] Care Team Providers Name Role Phone Elsewhere, Pcp Primary Care Provider Unavailable Encounter Details Date Type Department Care Team Description 05/08/2021 Documentation Preoperative Evaluation Cristy Navarro, [place] in [place], [place], C.N.P ., M.S.N. [place] [address] [address] [facility] [address] [place] [address] [phone] (Wo rk) Social History Tobacco Use Types [...] do you attend restoration or Never 2018 hindu services? Do you [...] The patient was not seen in [facility]GR[facility]. CTOR OF LABORATORY OPERATIONS documented in this encounter Plan of Treatment Not on filedocumented as of this encounter Visit Diagnoses Not on filedocumented in this encounter Additional Health Concerns Assessment Noted Time PHQ-9 Depression Total Score: 11 05/04/2013 4:05 PM CS T documented as of this encounter Care Teams Counter Tender Relationship Specialty Start Date End Date Elsewhere, Pcp PCP - General Internal Medicine 07/27/18 documented as of this encounter
--- OUTSIDE RECORDS SUMMARY | 2022-02-06 06:47 | XMS_ITS | Encounter Summary ---
:1955 Author Organization [facility] Address [address] [place] [address] Care Team Providers Name Role Phone Elsewhere, Pcp Primary Care Provider Unavailable Reason for Referral Outpatient (Routine) - Authorized Specialty Diagnoses / Procedures Referred By Contact Refer red To Contact Diagnoses Arun Lee M.D. [facility] Procedures US Assisted Guidance [address] [place] [address] Referral ID Status Reason Start Date Expiration Date Visits V isits Requested Authorized [id number] Authorized 05/08/2021 05/08/2022 1 1 RI/CAT/PET Scan (Routine) - Authorized Specialty Diagnoses / Procedures Referred By Contact Refer red To Contact Radiology Diagnoses Arun Lee M.D. [facility] Procedures CT Abdomen Ablation [address] [place] [address] Referral ID Status Reason Start Date Expiration Date Visits V isits Requested Authorized [id number] Authorized 05/08/2021 05/08/2022 1 1 utpatient (Routine) - Authorized Specialty Diagnoses / Procedures Referred By Contact Refer red To Contact Diagnoses Arun Lee M.D. [facility] Procedures US Kidney Left [address] [place], [place] [address] Referral ID Status Reason Start Date Expiration Date Visits V isits Requested Authorized [id number] Authorized 05/08/2021 05/08/2022 1 1 utpatient (Routine) - Authorized Specialty Diagnoses / Procedures Referred By Contact Refer red To Contact Vascular Medicine Diagnoses Dane Kidney Arun Waterman M.D. [facility] [address] [place], [place] [address] Referral ID Status Reason Start Date Expiration Date Visits V isits Requested Authorized [id number] Authorized 05/08/2021 05/08/2022 1 1 utpatient (Routine) - Authorized Specialty Diagnoses / Procedures Referred By Contact Refer red To Contact Anesthesiology Diagnoses Dane Kidney Arun Waterman M.D. [facility] [address] [place], [place] [address] Referral ID Status Reason Start Date Expiration Date Visits V isits Requested Authorized [id number] Authorized 05/08/2021 05/08/2022 1 1 P FITNESS MANAGER Encounter Details Date Type Department Care Team Description 05/08/2021 Orders Only Department of So Ca Dane Kidney (Primary Radiology, Moise MortonNEdilma Sánchez) [facility], in [facility] [phone] [place] (Work) [address] [place] [phone] Social History Tobacco Use Types Packs/Day [...] do you attend evangelical or Never 2018 spiritism services? Do you [...] documented as of this encounter Care Teams Visualizer Relationship Specialty Start Date End Date Elsewhere, Pcp PCP - General Internal Medicine 07/27/18 documented as of this encounter
--- OUTSIDE RECORDS SUMMARY | 2022-02-06 06:48 | XMS_ITS | Encounter Summary ---
:[address] [facility] Address [address] [place] [address] Care Team Providers Name Role Phone Elsewhere, Pcp Primary Care Provider Unavailable Reason for Referral Outpatient (Routine) - Closed Specialty Diagnoses / Procedures Referred By Contact Refer red To Contact Diagnoses Flutter Atrial (HCC) Atrial Fibrillation Paroxysmal (HCC) [facility] [place] Procedures ECG Heart Rhythm Monitor (Holter) Bess [address] [place] [address] Referral ID Status Reason Start Date Expiration Date Visits Requ ested Visits Authorized [id number] Closed 01/30/2021 01/30/2022 1 1 MONITOR Encounter Details Date Type Department Care Team Description 01/30/2021 Orders Only Department of Vulnerability Researcher, Flutter Atria l (HCC) (Primary Dx); Cardiovascular Medicine Bess Randall Atri al Fibrillation Paroxysmal (HCC) in [facility] potato chip sorter [address] [place] [address] Social History Tobacco Use [...] do you attend hinduism or Never 2018 moravian services? Do you belong to any clubs or No 02/26/2019 organizations such as hinduism groups, unions, fraAmadesa or athletic groups, or school groups? How [...] encounter Results HOLTER MONITOR - IN CLINIC ENERGY AND CONSERVATION TECHNICIAN (03/01/2021 9:47 PM HALL MONITOR) [facility] gist Method Time Signature Min Heart [...] AF Duration 0 duration INFOBIONIC MOME AF [place] 0 percent INFOBIONIC MOME Symptom Count 1 count INFOBIONIC MOME Specimen (Source) Anatomical Collection Method Collection Time Re ceived Time Location / / Volume Laterality 02/27/2021 1:24 PM HALL MONITOR Narrative INFOBIONIC MOME - 03/04/2021 10:59 AM [...] No ectopy was seen around this time. Sales Promotion Coordinator: Jair Little/Solange Momin Procedure Note Peyman Cole [...] No ectopy was seen around this time. Sales Promotion Coordinator: Jair Little/Solange Momin Porfirio Villegas M.D. CV [...] documented as of this encounter Care Teams Rf Test Engineer Relationship Specialty Start Date End Date Elsewhere, Pcp PCP - General Internal Medicine 07/27/18 documented as of this encounter
--- OUTSIDE RECORDS SUMMARY | 2022-02-06 06:48 | XMS_ITS | Encounter Summary ---
:1955 Author Organization [facility] Address [address] [place] [address] Care Team Providers Name Role Phone Elsewhere, Pcp Primary Care Provider Unavailable Reason for Referral MRI/CAT/PET Scan (Routine) - Closed Specialty Diagnoses / Procedures Referred By Contact Refer red To Contact Radiology Diagnoses Mass Kidney Ally Bar M.D. [facility] Procedures CT Chest without IV Contrast [address] [place] [address] Referral ID Status Reason Start Date Expiration Date Visits Requ ested Visits Authorized [id number] Closed 05/03/2021 05/03/2022 1 1 AIMED PROPERTY MANAGER Outpatient (Routine) - Closed Specialty Diagnoses / Procedures Referred By Contact Refer red To Contact Radiology Diagnoses Mass Kidney Ally Bar M.D. [facility] [address] [place] [address] Referral ID Status Reason Start Date Expiration Date Visits Requ ested Visits Authorized [id number] Closed 05/03/2021 05/03/2022 1 1 AIMED PROPERTY MANAGER Encounter Details Date Type Department Care Team Description 05/03/2021 Orders Only Department of Urology Ally Bar Ma ss Kidney (Primary in Krista, Bess Dx) [place] [address] [facility] [place] [phone] Social History Tobacco Use Types Packs/Day Years [...] do you attend catholic or Never 2018 oriental orthodox services? Do [...] Chest without IV Contrast (05/03/2021 1:35 PM UNCLAIMED PROPERTY MANAGER) Anatomical Region Laterality Modality Chest, Thoracic RST LOS, Thoracic ARZ N/A Co mputed Tomography, Computed LOS, Thoracic FLA LOS Tomography Specimen (Source) Anatomical Collection Method Collection Time Re ceived Time Location / / Volume Laterality 05/03/2021 1:42 PM UNCLAIMED PROPERTY MANAGER Impressions 05/03/2021 1:53 PM UNCLAIMED PROPERTY MANAGER 1. Increased clustered nodularity with new [...] stable since 03/30/2020. Narrative 05/03/2021 1:53 PM UNCLAIMED PROPERTY MANAGER EXAM: CT CHEST WITHOUT IV CONTRAST COMPARISON: [facility] CT chest 01/07/2 021. FINDINGS: The [...] CHEST WITHOUT IV CONTRAST COMPARISON: [facility] CT chest . FINDINGS: The 5 [...] documented as of this encounter Care Teams Organic Gardening Teacher Relationship Specialty Start Date End Date Elsewhere, Pcp PCP - General Internal Medicine 07/27/18 documented as of this encounter
--- OUTSIDE RECORDS SUMMARY | 2022-02-06 06:48 | XMS_ITS | Encounter Summary ---
:1955 Author Organization [facility] Address [address] [place] [address] Care Team Providers Name Role Phone Elsewhere, Pcp Primary Care Provider Unavailable Reason for Referral MRI/CAT/PET Scan (Routine) - Closed Specialty Diagnoses / Procedures Referred By Contact Refer red To Contact Radiology Diagnoses Mass Kidney Kristen Watts M.D. [facility] Procedures CT Abdomen Pelvis with IV Contrast CT Abdomen Pelvis without and with IV Contrast [address] [place] [address] Referral ID Status Reason Start Date Expiration Date Visits Requ ested Visits Authorized [id number] Closed 02/06/2021 02/06/2022 1 1 SEAT FILLER Reason for Visit MRI/CAT/PET Scan (Routine) - Closed Specialty Diagnoses / Procedures Referred By Contact Refer red To Contact Radiology Diagnoses Mass Kidney Kristen Watts M.D. [facility] Procedures CT Abdomen Pelvis with IV Contrast CT Abdomen Pelvis without and with IV Contrast [address] [place] [address] Referral ID Status Reason Start Date Expiration Date Visits Requ ested Visits Authorized [id number] Closed 02/06/2021 02/06/2022 1 1 Encounter Details Date Type Department Care Team Description 05/02/2021 Hospital Encounter Department of Radiology, Yamile Watts M.D. Mass Kidney [facility], in [place], [place] [address] [place] [address] Social History Tobacco Use Types Packs/Day [...] do you attend sikhism or Never 2018 yazdanism services? Do you [...] this WITH IV CONTRAST (most inpatients AM HEEL SEAT FILLER procedu re are in and all the results outpatients) section. CREATININE, POCT, Routine 05/02/2021 11:23 Result s for this B AM HEEL SEAT FILLER procedure are i n the results section. CREATININE, POCT, Routine 05/02/2021 11:23 Result s for this B AM HEEL SEAT FILLER procedure are i n the results section. documented in this encounter Results CT Abdomen Pelvis with IV Contrast (05/02/2021 11:48 AM HEEL SEAT FILLER) Anatomical Region Laterality Modality Abdomen, Pelvis, Abdominal RST LOS, N/A Comp uted Tomography, Computed Abdominal ARZ LOS, Abdominal FLA LOS Godwin ography Specimen (Source) Anatomical Collection Method Collection Time Re ceived Time Location / / Volume Laterality 05/02/2021 11:49 AM HEEL SEAT FILLER Impressions 05/02/2021 1:00 PM HEEL SEAT FILLER 1. Slight interval enlargement of the 1.6 cm left renal mass likely representing a primary renal neoplasm. 2. No evidence of metastatic disease in the abdomen or pelvis. Narrative 05/02/2021 1:00 PM HEEL SEAT FILLER EXAM: ??CT ABDOMEN PELVIS WITH IV CONTRAST [...] CT PROCEDURES Creatinine, POCT (05/02/2021 11:23 AM HEEL SEAT FILLER) athologist Signature Creatinine, 0.7 0.6 - 1.0 05/02/2021 PCDT POCT, B mg/dL 11:28 AM HEEL SEAT FILLER Comment: ----ADDITIONAL INFORMATION---- Performed at the Point of Care Specimen Anatomical Collection Method Collection Time Receive d Time (Source) Location / / Volume Laterality Blood 05/02/2021 11:23 05/02/2021 AM HEEL SEAT FILLER 11:29 AM HEEL SEAT FILLER Unknown Provider LAB POCT ORDERABLES - DEVICE Performing Organization Address City/State/ZIP Code Phon e Number POC [facility] [address] [place] [address] LABS PCDT [facility] [place] [address] [place] [facility] [address] Creatinine, POCT (05/02/2021 11:23 AM HEEL SEAT FILLER) P athologist Signature eGFR-Black/Afri >90 >=60 05/02/2021 PCDT can Belarusian, mL/min/BSA 11:29 AM HEEL SEAT FILLER POCT Comment: ----ADDITIONAL INFORMATION---- Estimated GFR calculated using the 2009 CKD_EPI creatinine equation. eGFR Non-Black/, >90 >=60 mL/min/BSA 05/02/2021 11:29 AM HEEL SEAT FILLER PCDT POCT Comment: ----ADDITIONAL INFORMATION---- Estimated GFR calculated using the 2009 CKD_EPI creatinine equation. Specimen Anatomical Collection Method Collection Time Receive d Time (Source) Location / / Volume Laterality Blood 05/02/2021 11:23 05/02/2021 AM HEEL SEAT FILLER 11:29 AM HEEL SEAT FILLER Unknown Provider LAB POCT ORDERABLES - DEVICE Performing Organization Address City/State/ZIP Code Phon e Number [facility] PERFORMING [address] [place] [address] LABS PCDT [facility] [place] [address] [place] [facility] [address] documented in this encounter Visit Diagnoses Diagnosis Mass Kidney documented in this encounter Administered Medications Inactive Administered Medications - up to 3 most recent administrations Medication Order MAR Action Action Date Dose Rate Site iohexoL 300 mg iodine/mL solution Given 05/02/2021 11:38 AM HEEL SEAT FILLER 140 mL 1-200 mL (OMNIPAQUE) 1-200 mL, intravenous, Once in imaging, contrast, Starting on Fri05/02/21 at 1114, For 1 dose, Imaging Protocol Orders, Dose per Radiant Medication Guidelines sodium chloride (PF) 0.9 % injection 1-1 00 mL Given 05/02/2021 11:38 AM HEEL SEAT FILLER 50 mL 1-100 mL, intravenous, Once, On Fri05/02/21 at 1115, For 1 dose, Imaging Protocol Orders documented in this encounter Additional Health Concerns Assessment Noted Time PHQ-9 Depression Total Score: 11 05/04/2013 4:05 PM CS T documented as of this encounter Care Teams Renal Technician Relationship Specialty Start Date End Date Elsewhere, Pcp PCP - General Internal Medicine 07/27/18 documented as of this encounter
--- OUTSIDE RECORDS SUMMARY | 2022-02-06 06:48 | XMS_ITS | Encounter Summary ---
:1955 Author Organization [facility] Address [address] [place] [address] Care Team Providers Name Role Phone Elsewhere, Pcp Primary Care Provider Unavailable Reason for Visit Outpatient (Routine) - Closed Specialty Diagnoses / Procedures Referred By Contact Refer red To Contact Otorhinolaryngology Diagnoses [facility]eness [facility] [address] [place] [address] Referral ID Status Reason Start Date Expiration Date Visits Requ ested Visits Authorized [id number] Closed 03/30/2020 03/30/2021 1 1 Encounter Details Date Type Department Care Team Description 04/11/2020 Comprehensive Visit Department of Wendy Kim ess Otorhinolaryngology in Michela Martínez [place], [place] P.A.-C., [address] [place] [address] 200 [facility] [phone] [place] [address] Social History Tobacco Use Types Packs/Day Years [...] do you attend adventism or Never 2018 methodist services? Do you [...] has non-labored breathing. No audible stridor. Skin: [place]ry[place] and dry. Psych: Appropriate mood and affect. [...] see her back on a p.r.n. basis. NG MACHINE OPERATOR HELPER documented in this encounter Plan of Treatment Not on filedocumented as of this encounter Visit Diagnoses Diagnosis Hoarseness Chronic documented in this encounter Additional Health Concerns Assessment Noted Time PHQ-9 Depression Total Score: 11 05/04/2013 4:05 PM CS T documented as of this encounter Care Teams Social Work Administrator Relationship Specialty Start Date End Date Elsewhere, Pcp PCP - General Internal Medicine 07/27/18 documented as of this encounter
--- OUTSIDE RECORDS SUMMARY | 2022-02-06 06:48 | XMS_ITS | Encounter Summary ---
:1955 Author Organization [facility] Address [address] [place] [address] Care Team Providers Name Role Phone Elsewhere, Pcp Primary Care Provider Unavailable Reason for Visit Outpatient (Routine) - Closed Specialty Diagnoses / Procedures Referred By Contact Refer red To Contact Diagnoses Other Polyuria Kristen Watts M.D. [facility] Procedures URO Uroflow [address] [place] [address] Referral ID Status Reason Start Date Expiration Date Visits Requ ested Visits Authorized [id number] Closed 02/06/2021 02/06/2022 1 1 Encounter Details Date Type Department Care Team Description 05/03/2021 Procedure visit Department of Kristen Watts M.D. Other Polyuria; Urology in Batsheva Harris, L.P.N. Feeling Of Incomplete Bladder Emptying; [place], [place] Eusebio Tran M.D. [address] [place] [phone] Frequency Urinary [address] [place] [phone] Social History Tobacco Use Types Packs/Day [...] do you attend druze or Never 2018 druze services? Do you [...] 0 to 10 pain scale post procedure. OPEDIC TECH documented in this encounter Procedure Notes Eusebio [...] Low voided volume with low postvoid residual. OPEDIC TECH documented in this encounter Plan of Treatment Not on filedocumented as of this encounter Procedures Procedure Name Priority Date/Time Associated Diagnosis Comme nts URO UROFLOW Routine 05/03/2021 10:45 AM Other Polyuria Result s for this ORTHOPEDIC TECH procedure are i n the results section . documented in this encounter Results URO Uroflow (05/03/2021 10:45 AM ORTHOPEDIC TECH) Narrative Eusebio Tran M.D. - 05/03/2021 10: [...] as of this encounter Care Teams Air Compressor Engineer Relationship Specialty Start Date End Date Elsewhere, Pcp PCP - General Internal Medicine 07/27/18 documented as of this encounter
--- OUTSIDE RECORDS SUMMARY | 2022-02-06 06:48 | XMS_ITS | Encounter Summary ---
:1955 Author Organization [facility] Address [address] [place] [address] Care Team Providers Name Role Phone Elsewhere, Pcp Primary Care Provider Unavailable Encounter Details Date Type Department Care Team Description 05/02/2021 Hospital Encounter Department of Laboratory Yamile Watts M.D. [facility] Kidney Medicine and Pathology, [facility] in [place], [place] [address] [place] [address] Social History Tobacco Use Types Packs/Day [...] do you attend sabianism or Never 2018 latter-day services? Do you [...] Procedure Name Priority Date/Time Associated Comments Diagnosis NV OSMOLALITY ASSAY Routine 05/02/2021 10:17 Resu lts for this URINE AM DE ICER INSTALLER procedure are i n the results section. DIPSTICK, U Routine 05/02/2021 10:17 Results for this AM DE ICER INSTALLER procedure are i n the results section. PH, RANDOM, U Routine 05/02/2021 10:17 Results fo r this AM DE ICER INSTALLER procedure are i n the results section. MICROSCOPIC MANUAL Routine 05/02/2021 10:17 Resul ts for this AM DE ICER INSTALLER procedure are i n the results section. URINALYSIS WITH Routine 05/02/2021 10:17 Mass Kidney Results for this MICROSCOPIC AM DE ICER INSTALLER procedure are i n the results section. documented in this encounter Results Dipstick, Urine (05/02/2021 10:17 AM DE ICER INSTALLER) [facility] gist Method Time Signature Hemoglobin, Negative Negative 05/02/2021 DTL QL, U 11:20 AM DE ICER INSTALLER Leukocyte Negative Negative 05/02/2021 DTL Esterase, U 11:20 AM DE ICER INSTALLER Nitrite, U Negative Negative 05/02/2021 DTL 11:20 AM DE ICER INSTALLER Ketone, U Negative Negative 05/02/2021 DTL mg/dL 11:20 AM DE ICER INSTALLER Glucose, U Negative Negative 05/02/2021 DTL mg/dL 11:20 AM DE ICER INSTALLER Specimen Anatomical Collection Method Collection Time Receive d Time (Source) Location / / Volume Laterality Urine 05/02/2021 10:17 05/02/2021 AM DE ICER INSTALLER 11:05 AM DE ICER INSTALLER Kristen Watts M.D. LAB URINE ORDERABLES Performing Organization Address City/[facility] Phon e Number [facility] - [address] Osmolality, Urine (05/02/2021 10:17 AM DE ICER INSTALLER) athologist Signature Osmolality, U 519 150 - 1150 05/02/2021 DTL mOsm/kg 12:05 PM DE ICER INSTALLER Specimen Anatomical Collection Method Collection Time Receive d Time (Source) Location / / Volume Laterality Urine 05/02/2021 10:17 05/02/2021 AM DE ICER INSTALLER 11:05 AM DE ICER INSTALLER Kristen Watts M.D. LAB URINE ORDERABLES Performing Organization Address City/[facility] Phon e Number [facility] - [address] [place] [address] [place] [address] pH, Random, Urine (05/02/2021 10:17 AM DE ICER INSTALLER) P athologist Signature pH, Random, U 5.1 4.5 - 8.0 05/02/2021 DTL 12:05 PM DE ICER INSTALLER Specimen Anatomical Collection Method Collection Time Receive d Time (Source) Location / / Volume Laterality Urine 05/02/2021 10:17 05/02/2021 AM DE ICER INSTALLER 11:05 AM DE ICER INSTALLER Kristen Watts M.D. LAB URINE ORDERABLES Performing Organization Address [facility]/ZIP [facility] Phon e Number [facility] - [address] [place] [address] (ABNORMAL) Microscopic Manual (05/02/2021 10:17 AM DE ICER INSTALLER) P athologist Signature Microscopy Abnormal 05/02/2021 DTL 1:14 PM DE ICER INSTALLER RBC <3 <3 /hpf 05/02/2021 DTL 1:14 PM DE ICER INSTALLER WBC 1-3 /hpf 05/02/2021 DTL 1:14 PM DE ICER INSTALLER Comment: ----REFERENCE VALUE---- 1-3 ??(Males) 1-10 (Females) Squamous Epithelial Cells, U 4-10 /hpf 05/02/2021 1:14 PM DE ICER INSTALLER DTL Bacteria Present (A) 05/02/2021 1:14 PM DE ICER INSTALLER DTL Specimen Anatomical Collection Method Collection Time Receive d Time (Source) Location / / Volume Laterality Urine 05/02/2021 10:17 05/02/2021 AM DE ICER INSTALLER 11:05 AM DE ICER INSTALLER Kristen Watts M.D. LAB URINE ORDERABLES Performing Organization Address City/[facility] Phon e Number [address] (ABNORMAL) Urinalysis with Microscopic: Urine, Midstream (05/02/2021 10:17 AM DE ICER INSTALLER) [facility] gist Method Time Signature Source Urine, Urine, 05/02/2021 DTL Midstream 11:04 AM DE ICER INSTALLER Color, U Yellow 05/02/2021 DTL 11:05 AM DE ICER INSTALLER Clarity, U Cloudy (A) 05/02/2021 DTL 11:05 AM DE ICER INSTALLER Protein, U 24 <26 mg/dL 05/02/2021 DTL 12:15 PM DE ICER INSTALLER Protein/Osmol 0.46 (H) <0.42 05/02/2021 DTL ality ratio 12:15 PM DE ICER INSTALLER Predicted 24 332 mg/24 h 05/02/2021 DTL Hr Protein 12:15 PM DE ICER INSTALLER Predicted 82-1344 mg/24 h 05/02/2021 DTL Range 12:15 PM DE ICER INSTALLER Specimen Anatomical Collection Method Collection Time Receive d Time (Source) Location / / Volume Laterality Urine (Urine, 05/02/2021 10:17 05/02/2021 Midstream) AM DE ICER INSTALLER 11:04 AM DE ICER INSTALLER Kristen Watts M.D. LAB URINE ORDERABLES Performing Organization Address City/State/ZIP Code Phon e Number [facility] - [address] [place], [place] [address] [facility] [place] [address] [facility] [address] documented in this encounter Visit Diagnoses Diagnosis Mass Kidney documented in this encounter Additional Health Concerns Assessment Noted Time PHQ-9 Depression Total Score: 11 05/04/2013 4:05 PM CS T documented as of this encounter Care Teams Cold Storage Worker Relationship Specialty Start Date End Date Elsewhere, Pcp PCP - General Internal Medicine 07/27/18 documented as of this encounter
--- OUTSIDE RECORDS SUMMARY | 2022-02-06 06:48 | XMS_ITS | Encounter Summary ---
:1955 Author Organization [facility] Address [address] [place] [address] Care Team Providers Name Role Phone Elsewhere, Pcp Primary Care Provider Unavailable Reason for Referral Outpatient (Routine) - Closed Specialty Diagnoses / Procedures Referred By Contact Refer red To Contact Urology Brian Mathias M.D . [address] [address] Referral ID Status Reason Start Date Expiration Date Visits Requ ested Visits Authorized [id number] Closed 05/04/2020 05/04/2021 1 1 AIR ANNOUNCER Encounter Details Date Type Department Care Team Description 05/04/2020 Orders Only Department of Urology Brian Mathias Ki dney And Ureter in [place] Disorder (Prim raman Dx) [address] [address] Social History Tobacco Use Types Packs/Day Years [...] do you attend mormon or Never 2018 worship services? Do you belong to any clubs or No 02/26/2019 organizations such as mormon groups, unions, fraeoSemi or athletic groups, or school groups? How [...] documented as of this encounter Care Teams Typing Secretary Relationship Specialty Start Date End Date Elsewhere, Pcp PCP - General Internal Medicine 07/27/18 documented as of this encounter
--- OUTSIDE RECORDS SUMMARY | 2022-02-06 06:48 | XMS_ITS | Encounter Summary ---
:1955 Author Organization [facility] Address [address] [place] [address] Care Team Providers Name Role Phone Elsewhere, Pcp Primary Care Provider Unavailable Reason for Visit Outpatient (Routine) - Closed Specialty Diagnoses / Procedures Referred By Contact Refer red To Contact Urology Brian Mathias M.D . [facility] 200 [place] [address] Referral ID Status Reason Start Date Expiration Date Visits Requ ested Visits Authorized [id number] Closed 05/04/2020 05/04/2021 1 1 Encounter Details Date Type Department Care Team Description 05/03/2021 Office Visit Department of Urology Ally Bar Ma ss Kidney (Primary in [place], Bess Dx) [place] 1400 [facility] [address] [place] [address] [phone] Social History Tobacco Use Types Packs/Day Years [...] do you attend baptist or Never 2018 muslim services? Do you belong to any clubs or No 02/26/2019 organizations such as baptist groups, unions, [employer] or athletic groups, or school groups? How [...] by: Sheryl Bar M.D. 05/03/2021 11:48 AM DROP MAN MAN documented in this encounter Plan of Treatment Not on filedocumented as of this encounter Visit Diagnoses Diagnosis Mass Kidney - Primary documented in this encounter Additional Health Concerns Assessment Noted Time PHQ-9 Depression Total Score: 11 05/04/2013 4:05 PM CS T documented as of this encounter Care Teams Ice Hockey Coach Relationship Specialty Start Date End Date Elsewhere, Pcp PCP - General Internal Medicine 07/27/18 documented as of this encounter
--- OUTSIDE RECORDS SUMMARY | 2022-02-06 06:48 | XMS_ITS | Encounter Summary ---
:1955 Author Organization [facility] Address [address] [place] [address] Care Team Providers Name Role Phone Elsewhere, Pcp Primary Care Provider Unavailable Reason for Referral MRI/CAT/PET Scan (Routine) - Closed Specialty Diagnoses / Procedures Referred By Contact Refer red To Contact Radiology Diagnoses Kidney And Ureter Disorder Brian Mathias M.D. [facility] Procedures CT Abdomen with IV Contrast CT Abdomen without and with IV Contrast 200 [place] [address] Referral ID Status Reason Start Date Expiration Date Visits Requ ested Visits Authorized [id number] Closed 04/11/2020 04/11/2021 1 1 SPORTATION ASSISTANT Reason for Visit MRI/CAT/PET Scan (Routine) - Closed Specialty Diagnoses / Procedures Referred By Contact Refer red To Contact Radiology Diagnoses Kidney And Ureter Disorder Brian Mathias M.D. [facility] Procedures CT Abdomen with IV Contrast CT Abdomen without and with IV Contrast 200 [place] [address] Referral ID Status Reason Start Date Expiration Date Visits Requ ested Visits Authorized [id number] Closed 04/11/2020 04/11/2021 1 1 Encounter Details Date Type Department Care Team Description 04/24/2020 Hospital Encounter Department of Brian Mathias Kidney And Ureter Radiology, Prakash Miranda M.D. [facility], in [place], [place] [address] [place] [address] Social History Tobacco Use Types Packs/Day Years [...] do you attend anabaptism or Never 2018 uatsdin services? Do you [...] for this IV CONTRAST (most inpatients PM TRANSPORTATION ASSISTANT Disorder procedure a re in and all the results outpatients) section. documented in this encounter Results CT Abdomen with IV Contrast (04/24/2020 1:25 PM TRANSPORTATION ASSISTANT) Anatomical Region Laterality Modality Abdomen, Abdominal RST LOS, Abdominal N/A Co mputed Tomography, Computed ARZ LOS, Abdominal FLA LOS Tomography Specimen (Source) Anatomical Collection Method Collection Time Re ceived Time Location / / Volume Laterality 04/24/2020 2:21 PM TRANSPORTATION ASSISTANT Impressions 04/24/2020 2:47 PM TRANSPORTATION ASSISTANT 1. No change since 11/30/2019 indeterminate 1.4 cm left renal mass likely representing primary renal neoplasm. 2. Small hiatal hernia. 3. Probable osteoporosis. Narrative 04/24/2020 2:47 PM TRANSPORTATION ASSISTANT EXAM: ??CT ABDOMEN WITH IV CONTRAST COMPARISON: [...] mg iodine/mL solution Given 04/24/2020 1:16 PM TRANSPORTATION ASSISTANT 1 40 mL 1-200 mL (OMNIPAQUE) 1-200 mL, intravenous, Once in imaging, contrast, Starting on Fri04/24/20 at 1238, For 1 dose, Imaging Protocol Orders, Dose per Radiant Medication Guidelines sodium chloride (PF) 0.9 % injection 1-1 00 mL Given 04/24/2020 1:16 PM TRANSPORTATION ASSISTANT 50 mL 1-100 mL, intravenous, Once, On Fri04/24/20 at 1245, For 1 dose, Imaging Protocol Orders documented in this encounter Additional Health Concerns Assessment Noted Time PHQ-9 Depression Total Score: 11 05/04/2013 4:05 PM CS T documented as of this encounter Care Teams School Principal Relationship Specialty Start Date End Date Elsewhere, Pcp PCP - General Internal Medicine 07/27/18 documented as of this encounter
--- OUTSIDE RECORDS SUMMARY | 2022-02-06 06:48 | XMS_ITS | Encounter Summary ---
:1955 Author Organization [facility] Address [address] [place] [address] Care Team Providers Name Role Phone Elsewhere, Pcp Primary Care Provider Unavailable Reason for Referral MRI/CAT/PET Scan (Routine) - Closed Specialty Diagnoses / Procedures Referred By Contact Refer red To Contact Radiology Diagnoses Mass Kidney Ally Bar M.D. [facility] Procedures CT Chest without IV Contrast 1400 [place] [address] Referral ID Status Reason Start Date Expiration Date Visits Requ ested Visits Authorized [id number] Closed 05/03/2021 05/03/2022 1 1 RINTENDENT POLICE Reason for Visit MRI/CAT/PET Scan (Routine) - Closed Specialty Diagnoses / Procedures Referred By Contact Refer red To Contact Radiology Diagnoses Mass Kidney Ally Bar M.D. [facility] Procedures CT Chest without IV Contrast 1400 [place] [address] Referral ID Status Reason Start Date Expiration Date Visits Requ ested Visits Authorized [id number] Closed 05/03/2021 05/03/2022 1 1 Encounter Details Date Type Department Care Team Description 05/03/2021 Hospital Encounter Department of [place], Ally A, M.D. Mass Kidney Radiology, G[place] 1400 [facility], in [place], [place] [address] [address] [place] [address] [place] [address] Social History Tobacco Use Types [...] do you attend orthodox or Never 2018 scientologist services? Do you [...] for this IV CONTRAST (most inpatients PM SUPERINTENDENT POLICE procedure a re in and all the results outpatients) section. documented in this encounter Results CT Chest without IV Contrast (05/03/2021 1:35 PM SUPERINTENDENT POLICE) Anatomical Region Laterality Modality Chest, Thoracic RST LOS, Thoracic ARZ N/A Co mputed Tomography, Computed LOS, Thoracic FLA LOS Tomography Specimen (Source) Anatomical Collection Method Collection Time Re ceived Time Location / / Volume Laterality 05/03/2021 1:42 PM SUPERINTENDENT POLICE Impressions 05/03/2021 1:53 PM SUPERINTENDENT POLICE 1. Increased clustered nodularity with new dominant 11 x 7 mm nodule in the posterior basal left lower lobe, indeter minate but likely infectious/inflammatory rather than neop lastic. CT follow-up suggested in 3 months. 2. Stable 5 x 4 mm left upper lobe nodul e which has decreased since 08/18/2019. 3. Scattered additional tiny nodules are stable since 03/30/2020. Narrative 05/03/2021 1:53 PM SUPERINTENDENT POLICE EXAM: CT CHEST WITHOUT IV CONTRAST COMPARISON: [facility] CT chest 021. FINDINGS: The 5 x [...] EXAM: CT CHEST WITHOUT IV CONTRAST COMPARISON: [facility] CT chest 021. FINDINGS: The 5 x [...] documented as of this encounter Care Teams Crusher Foreman Relationship Specialty Start Date End Date Elsewhere, Pcp PCP - General Internal Medicine 07/27/18 documented as of this encounter
--- OUTSIDE RECORDS SUMMARY | 2022-02-06 06:48 | XMS_ITS | Encounter Summary ---
:[address] [facility] Address [address] [place] [address] Care Team Providers Name Role Phone Elsewhere, Pcp Primary Care Provider Unavailable Reason for Referral MRI/CAT/PET Scan (Routine) - Closed Specialty Diagnoses / Procedures Referred By Contact Refer red To Contact Radiology Diagnoses Mass Kidney Kristen Watts M.D. [facility] Procedures CT Abdomen Pelvis with IV Contrast CT Abdomen Pelvis without and with IV Contrast 200 [place] [address] Referral ID Status Reason Start Date Expiration Date Visits Requ ested Visits Authorized [id number] Closed 02/06/2021 02/06/2022 1 1 utpatient (Routine) - Closed Specialty Diagnoses / Procedures Referred By Contact Refer red To Contact Diagnoses Other Polyuria Kristen Watts M.D. [facility] Procedures URO Uroflow 200 [place] [address] Referral ID Status Reason Start Date Expiration Date Visits Requ ested Visits Authorized [id number] Closed 02/06/2021 02/06/2022 1 1 BAND SETTER Encounter Details Date Type Department Care Team Description 02/06/2021 Orders Only Department of Urology Kristen Watts, Mass Kidney (Primary Dx); in [facility] nasim Kellogg Other Polyuria; [address] [place] [address] Diabetes Mellitus Type 2 (HC [place]) [place] [address] Social History Tobacco Use Types Packs/Day Years [...] you attend roman catholic or Never 2018 voodoo services? Do you [...] encounter Results URO Uroflow (05/03/2021 10:45 AM NECK BAND SETTER) Narrative Eusebio Tran M.D. - 05/03/2021 10: 45 AM NECK BAND SETTER Eusebio Tran M.D. ? 05/07/2021 ??9:36 AM [...] Pelvis with IV Contrast (05/02/2021 11:48 AM NECK BAND SETTER) Anatomical Region Laterality Modality Abdomen, Pelvis, Abdominal RST LOS, N/A Comp uted Tomography, Computed Abdominal ARZ LOS, Abdominal FLA LOS Godwin ography Specimen (Source) Anatomical Collection Method Collection Time Re ceived Time Location / / Volume Laterality 05/02/2021 11:49 AM NECK BAND SETTER Impressions 05/02/2021 1:00 PM NECK BAND SETTER 1. Slight interval enlargement of the 1.6 cm left renal mass likely representing a primary renal neoplasm. 2. No evidence of metastatic disease in the abdomen or pelvis. Narrative 05/02/2021 1:00 PM NECK BAND SETTER EXAM: ??CT ABDOMEN PELVIS WITH IV CONTRAST [...] with Microscopic: Urine, Midstream (05/02/2021 10:17 AM NECK BAND SETTER) [facility] Method Time Signature Source Urine, Urine, 05/02/2021 DTL Midstream 11:04 AM NECK BAND SETTER Color, U Yellow 05/02/2021 DTL 11:05 AM NECK BAND SETTER Clarity, U Cloudy (A) 05/02/2021 DTL 11:05 AM NECK BAND SETTER Protein, U 24 <26 mg/dL 05/02/2021 DTL 12:15 PM NECK BAND SETTER Protein/Osmol 0.46 (H) <0.42 05/02/2021 DTL ality ratio 12:15 PM NECK BAND SETTER Predicted 24 332 mg/24 h 05/02/2021 DTL Hr Protein 12:15 PM NECK BAND SETTER Predicted 82-1344 mg/24 h 05/02/2021 DTL Range 12:15 PM NECK BAND SETTER Specimen Anatomical Collection Method Collection Time Receive d Time (Source) Location / / Volume Laterality Urine (Urine, 05/02/2021 10:17 05/02/2021 Midstream) AM NECK BAND SETTER 11:04 AM NECK BAND SETTER Kristen Watts M.D. LAB URINE ORDERABLES Performing Organization Address City/[facility] Phon e Number [facility] - [address] [place], [place] [address] [place] [address] (ABNORMAL) Hemoglobin A1c (05/02/2021 10:07 AM NECK BAND SETTER) P athologist Signature Hemoglobin A1c, 6.7 (H) 4.0 - 5.6 05/02/2021 DTL B % 10:48 AM NECK BAND SETTER Comment: Hemoglobin A1c values greater than or eq ual to 6.5 percent are diagnostic for diabetes mellitus. ?? Diagnosis should be confirmed by repeat testing. ??In diabet ic patients, HbA1c goals should be discussed with healthcar e provider. Specimen Anatomical Collection Method Collection Time Receive d Time (Source) Location / / Volume Laterality Blood (Blood, 05/02/2021 10:07 05/02/2021 Venous) AM NECK BAND SETTER 10:27 AM NECK BAND SETTER Kristen Watts M.D. LAB BLOOD ADD-ON Performing Organization Address City/[facility]/ZIP [facility] Phon e Number [facility] - [address] [place] [address] Basic Metabolic Panel (05/02/2021 10:07 AM NECK BAND SETTER) P athologist Signature Potassium, S 4.1 3.6 - 5.2 05/02/2021 DTL mmol/L 11:21 AM NECK BAND SETTER Sodium, S 141 135 - 145 05/02/2021 DTL mmol/L 11:21 AM NECK BAND SETTER Chloride, S 103 98 - 107 05/02/2021 DTL mmol/L 11:21 AM NECK BAND SETTER Bicarbonate, S 26 22 - 29 05/02/2021 DTL mmol/L 11:21 AM NECK BAND SETTER Anion Gap 12 7 - 15 05/02/2021 DTL 11:21 AM NECK BAND SETTER BUN (Blood Urea 12 6 - 21 05/02/2021 DTL Nitrogen), S mg/dL 11:21 AM NECK BAND SETTER Creatinine 0.92 0.59 - 05/02/2021 DTL 1.04 mg/dL 11:21 AM NECK BAND SETTER eGFR-Non 66 >=60 05/02/2021 DTL Black/ mL/min/BSA 11:21 AM NECK BAND SETTER [place] Comment: ----ADDITIONAL INFORMATION---- Estimated GFR calculated using the 2009 CKD_EPI creatinine equation. eGFR-Black/ 76 >=60 mL/min/BSA 2021 11:21 AM NECK BAND SETTER DTL Comment: ----ADDITIONAL INFORMATION---- Estimated GFR calculated using the 2009 CKD_EPI creatinine equation. Calcium, Total, S 9.3 8.8 - 10.2 mg/dL 05/02/2021 11:2 1 AM NECK BAND SETTER DTL Glucose, S 128 70 - 140 mg/dL 05/02/2021 11:21 AM NECK BAND SETTER DTL Specimen Anatomical Collection Method Collection Time Receive d Time (Source) Location / / Volume Laterality Blood (Blood, 05/02/2021 10:07 05/02/2021 Venous) AM NECK BAND SETTER 10:54 AM NECK BAND SETTER Kristen Watts M.D. LAB BLOOD ADD-ON Performing Organization Address City/State/ZIP Code Phon e Number [facility] - [address] [place], [place] [address] [facility] [place] [address] Laboratories-[facility] [address] documented in this encounter Visit Diagnoses Diagnosis Mass Kidney - Primary Other Polyuria Diabetes Mellitus Type 2 (HCC) Mass Kidney Other Polyuria Feeling Of Incomplete Bladder Emptying Frequency Urinary documented in this encounter Additional Health Concerns Assessment Noted Time PHQ-9 Depression Total Score: 11 05/04/2013 4:05 PM CS T documented as of this encounter Care Teams Retail Coordinator Relationship Specialty Start Date End Date Elsewhere, Pcp PCP - General Internal Medicine 07/27/18 documented as of this encounter
--- OUTSIDE RECORDS SUMMARY | 2022-02-06 06:48 | XMS_ITS | Encounter Summary ---
:1955 Author Organization [facility] Address [address] [place] [address] Care Team Providers Name Role Phone Elsewhere, Pcp Primary Care Provider Unavailable Encounter Details Date Type Department Care Team Description 02/06/2021 Clinical Communication Department of Urology Stacy Mathias in [place] [address] [address] [place] [address] Social History Tobacco Use Types Packs/Day Years [...] do you attend restoration or Never 2018 methodist services? Do you [...] diary prior to a visit, thank you! ARC WELDER Telephone Encounter - Valerie Stallworth - 02/06/2021 12:20 PM CST ~ Place needed orders Patient has referral for Polyuria, pt has orders for follow up visit and CT abdomen. Advise on additional testing needed for follow up with new indication. Thank you, ARC WELDER documented in this encounter Plan of Treatment Not on filedocumented as of this encounter Visit Diagnoses Not on filedocumented in this encounter Additional Health Concerns Assessment Noted Time PHQ-9 Depression Total Score: 05/04/2013 4:05 PM CS T documented as of this encounter Care Teams Registrar Museum Relationship Specialty Start Date End Date Elsewhere, Pcp PCP - General Internal Medicine 07/27/18 documented as of this encounter
--- OUTSIDE RECORDS SUMMARY | 2022-02-06 06:48 | XMS_ITS | Encounter Summary ---
:1955 Author Organization [facility] Address [address] [place] [address] Care Team Providers Name Role Phone Elsewhere, Pcp Primary Care Provider Unavailable Encounter Details Date Type Department Care Team Description 05/04/2020 Clinical Communication Department of Urology Stacy Mathias in [place] [address] [place] [address] Social History Tobacco Use Types Packs/Day Years [...] do you attend baptist or Never 2018 lutheran services? Do you [...] office visit. All questions answered. Orders placed. HER COLORER documented in this encounter Plan of Treatment Not on filedocumented as of this encounter Visit Diagnoses Not on filedocumented in this encounter Additional Health Concerns Assessment Noted Time PHQ-9 Depression Total Score: 05/04/2013 4:05 PM CS T documented as of this encounter Care Teams Policy Issue Clerk Relationship Specialty Start Date End Date Elsewhere, Pcp PCP - General Internal Medicine 07/27/18 documented as of this encounter
--- OUTSIDE RECORDS SUMMARY | 2022-02-06 06:48 | XMS_ITS | Encounter Summary ---
:1955 Author Organization [facility] Address [address] [place] [address] Care Team Providers Name Role Phone Elsewhere, Pcp Primary Care Provider Unavailable Reason for Visit Reason Comments Pre-Ablation Encounter Details Date Type Department Care Team Description 05/03/2021 Clinical Communication Department of So Ca e-Ablation Radiology, Homar Leon R.N. [place], in [phone] [place], [place] (Work) [address] [place] [address] Social History Tobacco Use Types Packs/Day [...] do you attend episcopal or Never 2018 oriental orthodox services? Do [...] ablation: Yes Reviewed by: Alen Gan M.D. ECT INSPECTOR documented in this encounter Plan of Treatment Not on filedocumented as of this encounter Visit Diagnoses Not on filedocumented in this encounter Additional Health Concerns Assessment Noted Time PHQ-9 Depression Total Score: 11 05/04/2013 4:05 PM CS T documented as of this encounter Care Teams Purchasing Agent Relationship Specialty Start Date End Date Elsewhere, Pcp PCP - General Internal Medicine 07/27/18 documented as of this encounter
--- OUTSIDE RECORDS SUMMARY | 2022-02-06 06:48 | XMS_ITS | Encounter Summary ---
:1955 Author Organization [facility] Address [address] [place] [address] Care Team Providers Name Role Phone Elsewhere, Pcp Primary Care Provider Unavailable Reason for Referral MRI/CAT/PET Scan (Routine) - Closed Specialty Diagnoses / Procedures Referred By Contact Refer red To Contact Radiology Diagnoses Kidney And Ureter Disorder Brian Mathias M.D. [facility] Procedures CT Abdomen with IV Contrast CT Abdomen without and with IV Contrast 200 [place] [address] Referral ID Status Reason Start Date Expiration Date Visits Requ ested Visits Authorized [id number] Closed 04/11/2020 04/11/2021 1 1 NTAMINATOR Reason for Visit Outpatient (Routine) - Closed Specialty Diagnoses / Procedures Referred By Contact Refer steven To Contact Urology Zac Gonzalez M.D. [facility] 200 [place] [address] Referral ID Status Reason Start Date Expiration Date Visits Requ ested Visits Authorized [id number] Closed 01/05/2020 01/04/2021 1 1 Encounter Details Date Type Department Care Team Description 04/11/2020 Office Visit Department of Urology Brian Mathias Ma ss Kidney (Primary Dx); in [place] Kidney And Ure ter Disorder [place] [address] [place] [address] Social History Tobacco Use Types Packs/Day Years [...] do you attend orthodox or Never 2018 shinto services? Do you [...] PM CST PROGRESS NOTE REASON FOR VISIT SLOT SHIFT SUPERVISOR Calendar HISTORY OF PRESENT ILLNESS Ms. Metcalf [...] by: Brian Mathias M.D. 04/11/2020 7:00 AM DECONTAMINATOR Answers for HPI/ROS submitted by the patient [...] Yes Bruises/bleeds easily: Yes Frequent urination: Yes NTAMINATOR documented in this encounter Plan of Treatment Not on filedocumented as of this encounter Results CT Abdomen with IV Contrast (04/24/2020 1:25 PM DECONTAMINATOR) Anatomical Region Laterality Modality Abdomen, Abdominal RST LOS, Abdominal N/A Co mputed Tomography, Computed ARZ LOS, Abdominal FLA LOS Tomography Specimen (Source) Anatomical Collection Method Collection Time Re ceived Time Location / / Volume Laterality 04/24/2020 2:21 PM DECONTAMINATOR Impressions 04/24/2020 2:47 PM DECONTAMINATOR 1. No change since 11/30/2019 indeterminate 1.4 cm left renal mass likely representing primary renal neoplasm. 2. Small hiatal hernia. 3. Probable osteoporosis. Narrative 04/24/2020 2:47 PM DECONTAMINATOR EXAM: ??CT ABDOMEN WITH IV CONTRAST COMPARISON: [...] documented as of this encounter Care Teams Orchid Grower Relationship Specialty Start Date End Date Elsewhere, Pcp PCP - General Internal Medicine 07/27/18 documented as of this encounter
--- OUTSIDE RECORDS SUMMARY | 2022-02-06 06:48 | XMS_ITS | Encounter Summary ---
:1955 Author Organization [facility] Address [address] [place] [address] Care Team Providers Name Role Phone Elsewhere, Pcp Primary Care Provider Unavailable Encounter Details Date Type Department Care Team Description 03/07/2021 Clinical Communication Department of Rosemarie Quezada Cardiovascular Medicine A, R.N. in [facility] rotary furnace operator [address] [facility] [address] [place] [address] [phone] Social History Tobacco Use Types Packs/Day Years [...] do you attend yarsanism or Never 2018 hoahaoism services? Do you [...] Rosemarie Quezada R.N. - 03/07/2021 12:52 PM GOLF TOURNAMENT CONSULTANT Call placed to Mrs. Metcalf's assisted Living facility to relay that Dr. Villegas did review the most recent monitor and did not see any rhythm issues of concern at this time so no recommendations for change in plan of care. They are requesting a copy of the monitor report be faxed to [phone] [facility] Nursing. I will see if Dr. Villegas's medical imaging technician can fax that information to them TOURNAMENT CONSULTANT documented in this encounter Plan of Treatment Not on filedocumented as of this encounter Visit Diagnoses Not on filedocumented in this encounter Additional Health Concerns Assessment Noted Time PHQ-9 Depression Total Score: 11 05/04/2013 4:05 PM CS T documented as of this encounter Care Teams Glass Crusher Relationship Specialty Start Date End Date Elsewhere, Pcp PCP - General Internal Medicine 07/27/18 documented as of this encounter
--- OUTSIDE RECORDS SUMMARY | 2022-02-06 06:48 | XMS_ITS | Encounter Summary ---
:1955 Author Organization [facility] Address [address] [place] [address] Care Team Providers Name Role Phone Elsewhere, Pcp Primary Care Provider Unavailable Reason for Visit Reason Comments Dizziness Atrial Fibrillation Encounter Details Date Type Department Care Team Description 01/25/2021 Clinical Department of Superintendent Geophysical Laboratory Dizziness; Atr ial Communication Cardiovascular , Bess Randall Fibrillation Medicine in [place], [place] [address] [place] [address] Social History Tobacco Use Types Packs/Day Years [...] do you attend mormon or Never 2018 baptism services? Do you [...] Quinones - 01/26/2021 11:11 AM CDT Called [email or web address] [phone]. She will connect with patient and have patient's PCIM order a 48-hour Holter Monitor, as patient hasn't had any rhythm monitoring done. Telephone Encounter - Carlota Casiano - 01/25/2021 2:35 PM CDT Symptoms ?? Goal or summary: Appt w/Testing ?? Recent change/new symptom/duration: [facility] ([phone]) check up, says things are off says [...] documented as of this encounter Care Teams Deckhand Sponge Boat Relationship Specialty Start Date End Date Elsewhere, Pcp PCP - General Internal Medicine 07/27/18 documented as of this encounter
--- OUTSIDE RECORDS SUMMARY | 2022-02-06 06:48 | XMS_ITS | Encounter Summary ---
:1955 Author Organization [facility] Address [address] [place] [address] Care Team Providers Name Role Phone Elsewhere, Pcp Primary Care Provider Unavailable Encounter Details Date Type Department Care Team Description 05/02/2021 Hospital Encounter Department of Kristen Watts, Kidney And Ureter Disorder; Laboratory Medicine Bess henderson; and Pathology, Diabetes Berna itus Type 2 (HCC) [facility] in [place], [place] [address] [place] [address] Social History Tobacco Use Types Packs/Day Years [...] AM Diabetes Mellitu s Results for this MANAGER FILM Type 2 (HCC) procedure are i n the results section. BASIC METABOLIC Routine 05/02/2021 10:07 AM Mass Kidney Resul ts for this PANEL, S/P MANAGER FILM procedure are i n the results section. documented in this encounter Results (ABNORMAL) Hemoglobin A1c (05/02/2021 10:07 AM MANAGER FILM) P athologist Signature Hemoglobin A1c, 6.7 (H) 4.0 - 5.6 05/02/2021 DTL B % 10:48 AM MANAGER FILM Comment: Hemoglobin A1c values greater than or eq ual to 6.5 percent are diagnostic for diabetes mellitus. ?? Diagnosis should be confirmed by repeat testing. ??In diabet ic patients, HbA1c goals should be discussed with healthcar e provider. Specimen Anatomical Collection Method Collection Time Receive d Time (Source) Location / / Volume Laterality Blood (Blood, 05/02/2021 10:07 05/02/2021 Venous) AM MANAGER FILM 10:27 AM MANAGER FILM Kristen Watts M.D. LAB BLOOD ADD-ON Performing Organization Address City/State/ZIP Code Phon e Number [facility] - [address] [place] [address] [facility] [place] [address] Laboratories-[facility] 200 [facility] Basic Metabolic Panel (05/02/2021 10:07 AM MANAGER FILM) P athologist Signature Potassium, S 4.1 3.6 - 5.2 05/02/2021 DTL mmol/L 11:21 AM MANAGER FILM Sodium, S 141 135 - 145 05/02/2021 DTL mmol/L 11:21 AM MANAGER FILM Chloride, S 103 98 - 107 05/02/2021 DTL mmol/L 11:21 AM MANAGER FILM Bicarbonate, S 26 22 - 29 05/02/2021 DTL mmol/L 11:21 AM MANAGER FILM Anion Gap 12 7 - 15 05/02/2021 DTL 11:21 AM MANAGER FILM BUN (Blood Urea 12 6 - 21 05/02/2021 DTL Nitrogen), S mg/dL 11:21 AM MANAGER FILM Creatinine 0.92 0.59 - 05/02/2021 DTL 1.04 mg/dL 11:21 AM MANAGER FILM eGFR-Non 66 >=60 05/02/2021 DTL Black/ mL/min/BSA 11:21 AM MANAGER FILM Tuvaluan Comment: ----ADDITIONAL INFORMATION---- Estimated GFR calculated using the 2009 CKD_EPI creatinine equation. eGFR-Black/ 76 >=60 mL/min/BSA 2021 11:21 AM MANAGER FILM DTL Comment: ----ADDITIONAL INFORMATION---- Estimated GFR calculated using the 2009 CKD_EPI creatinine equation. Calcium, Total, S 9.3 8.8 - 10.2 mg/dL 05/02/2021 11:2 1 AM MANAGER FILM DTL Glucose, S 128 70 - 140 mg/dL 05/02/2021 11:21 AM MANAGER FILM DTL Specimen Anatomical Collection Method Collection Time Receive d Time (Source) Location / / Volume Laterality Blood (Blood, 05/02/2021 10:07 05/02/2021 Venous) AM MANAGER FILM 10:54 AM MANAGER FILM Kristen Watts M.D. LAB BLOOD ADD-ON Performing Organization Address City/State/ZIP Code Phon e Number [facility] - [address] [place], [place] [address] [facility] [place] [address] [facility] [address] documented in this encounter Visit Diagnoses Diagnosis Kidney And Ureter Disorder Mass Kidney Diabetes Mellitus Type 2 (HCC) documented in this encounter Additional Health Concerns Assessment Noted Time PHQ-9 Depression Total Score: 11 05/04/2013 4:05 PM CS T documented as of this encounter Care Teams Distribution Dispatcher Relationship Specialty Start Date End Date Elsewhere, Pcp PCP - General Internal Medicine 07/27/18 documented as of this encounter
--- OUTSIDE RECORDS SUMMARY | 2022-02-06 06:48 | XMS_ITS | Encounter Summary ---
:1955 Author Organization [facility] Address [address] [place] [address] Care Team Providers Name Role Phone Elsewhere, Pcp Primary Care Provider Unavailable Reason for Referral Outpatient (Routine) - Closed Specialty Diagnoses / Procedures Referred By Contact Refer red To Contact Diagnoses Flutter Atrial (HCC) [facility] Fibr[facility] Heart Rhythm Monitor (Holter) M.DEdilma [address] [place] [address] Referral ID Status Reason Start Date Expiration Date Visits Requ ested Visits Authorized [id number] Closed 01/30/2021 01/30/2022 1 1 SOLUTIONS ARCHITECT Reason for Visit Outpatient (Routine) - Closed Specialty Diagnoses / Procedures Referred By Contact Refer red To Contact Diagnoses Flutter Atrial (HCC) Atrial Fibrillation Paroxysmal (HCC) [facility] Procedures ECG Heart Rhythm Monitor (Holter) MEdilmaDEdilma [address] [place] [address] Referral ID Status Reason Start Date Expiration Date Visits Requ ested Visits Authorized [id number] Closed 01/30/2021 01/30/2022 1 1 Encounter Details Date Type Department Care Team Description 02/27/2021 Hospital Encounter Department of Siontis, Flutter Atrial (HCC); Cardiovascular Diseases Pacheco Monroy iasixto Fibrillation Paroxysmal (HCC) in [facility] nasim Kellogg 200 [facility] [address] [place] [address] [phone] Social History Tobacco Use Types Packs/Day Years [...] do you attend episcopalian or Never 2018 anabaptism services? Do you [...] Routine 03/01/2021 9:47 PM Flutter A trial ([facility]) Results for this CLINIC CORE INSERTER JAVA SOLUTIONS ARCHITECT Atrial Fibrillation proced ure are in Paroxysmal ([facility]) the results section. documented in this encounter Results HOLTER MONITOR - IN CLINIC CORE INSERTER (03/01/2021 9:47 PM JAVA SOLUTIONS ARCHITECT) [facility] gist Method Time Signature Min Heart [...] AF Duration 0 duration INFOBIONIC MOME AF [place] 0 percent INFOBIONIC MOME Symptom Count 1 count INFOBIONIC MOME Specimen (Source) Anatomical Collection Method Collection Time Re ceived Time Location / / Volume Laterality 02/27/2021 1:24 PM JAVA SOLUTIONS ARCHITECT Narrative INFOBIONIC MOME - 03/04/2021 10:59 AM [...] No ectopy was seen around this time. Pullman Conductor: Jair Little/Solange Momin Procedure Note Peyman Cole [...] No ectopy was seen around this time. Pullman Conductor: Jair Little/Solange Momin Porfirio Villegas M.D. CV [...] documented as of this encounter Care Teams Wood Hacker Relationship Specialty Start Date End Date Elsewhere, Pcp PCP - General Internal Medicine 07/27/18 documented as of this encounter
--- OUTSIDE RECORDS SUMMARY | 2022-02-06 06:49 | XMS_ITS | Encounter Summary ---
:1955 Author Organization [facility] Address [address] [place] [address] Care Team Providers Name Role Phone Elsewhere, Pcp Primary Care Provider Unavailable Encounter Details Date Type Department Care Team Description 01/04/2020 Hospital Encounter Department of Zac Gonzalez Renal Cell Radiology, [place] Bess Perez [facility], in [place], [place] [address] [place] [address] Social History Tobacco Use Types Packs/Day Years [...] do you attend denominational or Never 2018 taoism services? Do you [...] documented as of this encounter Care Teams Hospital Receptionist Relationship Specialty Start Date End Date Elsewhere, Pcp PCP - General Internal Medicine 07/27/18 documented as of this encounter
--- OUTSIDE RECORDS SUMMARY | 2022-02-06 06:49 | XMS_ITS | Encounter Summary ---
:1955 Author Organization [facility] Address [address] [place] [address] Care Team Providers Name Role Phone Elsewhere, Pcp Primary Care Provider Unavailable Encounter Details Date Type Department Care Team Description 04/07/2020 Hospital Encounter Department of Josh Rodriguez For Laboratory Medicine Geeta Urias M.D. Screen ing For Other in [place], Viral Disease [facility] (COVID-19) [address] [place] [phone] Social History Tobacco Use Types Packs/Day Years [...] do you attend uatsdin or Never 2018 sabianist services? Do you [...] For Re sults for this RNA, V PUBLIC AFFAIRS MANAGER Screening For Other procedur e are in Viral Diseases the results (COVID-19) section. documented in this encounter Results SARS Coronavirus-2 RNA, V Asymptomatic (04/07/2020 9:12 AM PUBLIC AFFAIRS MANAGER) [facility] Method Time Signature SARS-CoV-2 Swab, 04/07/2020 MKTO Specimen Nasopharynx 7:58 PM PUBLIC AFFAIRS MANAGER Source SARS CoV-2 Undetected Undetected 04/07/2020 ARTIS RNA, TMA 7:58 PM PUBLIC AFFAIRS MANAGER Comment: SARS-CoV-2 RNA absent. This result does not rule out COVID-19 in the patient, as the sensitivity of the test depends o n the timing of the specimen collection and the quality of the specim en. Result should be correlated with patient's history and clinical presentat ion. ----ADDITIONAL INFORMATION---- This molecular amplification test was pe rformed using the Aptima SARS-CoV-2 assay ([employer] on the Rong360s tem under emergency use authorization (EUA) by the U.S. Food and Drug Administ ration. Fact sheets for this EUA assay can be fo und at the following links: For Healthcare Providers: https://www.LATTO a.gov/media/023530/download For Patients: https://www.fda.gov/media/ 270922/download Specimen Anatomical Collection Method Collection Time Receive d Time (Source) Location / / Volume Laterality Varies 04/07/2020 9:12 AM 3:22 (Nasopharynx) PUBLIC AFFAIRS MANAGER PM PUBLIC AFFAIRS MANAGER Geeta Ware M.D. LAB MICROBIOLOGY - GENERAL O RDERABLES Performing Organization Address City/State/ZIP Code Phon e Number [facility]- [address] [place] [address] [place] [address] System in [address] documented in this encounter Visit Diagnoses Diagnosis Encounter For Screening For Other Viral Diseases (COVID-19) documented in this encounter Additional Health Concerns Infection Onset Date Last Indicated Resolved Time COVID19 Pending 04/07/2020 04/07/2020 04/07/2020 7:59 PM PUBLIC AFFAIRS MANAGER Assessment Noted Time PHQ-9 Depression Total Score: 11 05/04/2013 4:05 PM CS T documented as of this encounter Care Teams Weigh Tank Operator Relationship Specialty Start Date End Date Elsewhere, Pcp PCP - General Internal Medicine 07/27/18 documented as of this encounter
--- OUTSIDE RECORDS SUMMARY | 2022-02-06 06:49 | XMS_ITS | Encounter Summary ---
:1955 Author Organization [facility] Address [address] [place] [address] Care Team Providers Name Role Phone Elsewhere, Pcp Primary Care Provider Unavailable Reason for Visit Reason Comments NERIS Nurse Line Encounter Details Date Type Department Care Team Description 03/20/2020 Clinical Communication Division of NERIS Harkins Nurse Bianca Pulmonary Medicine Bess Moreira in [place], [address] [place] [address] [place] [address] [place], [place] [phone] [address] (Work) [phone] Social History Tobacco Use Types Packs/Day Years [...] do you attend druze or Never 2018 church services? Do you [...] - 03/20/2020 4:16 PM CST ([place] and [place] [facility] locations only: If the patient is not having symptoms and is requesting COVID-19 Nasal Swab testing only, use the process listed in the COVID-19 Patient Requesting COVID PCR Test OTG COVID-19 [place] Patient Requesting COVID PCR Test). In the past 20 days have you had a swab for COVID that tested positive? no Route reply to: justynt pul appt office/vl Scheduling Contact Number: [phone] ANCE SERVICES COORDINATOR documented in this encounter Plan of Treatment Not on filedocumented as of this encounter Visit Diagnoses Not on filedocumented in this encounter Additional Health Concerns Assessment Noted Time PHQ-9 Depression Total Score: 11 05/04/2013 4:05 PM CS T documented as of this encounter Care Teams Business Operations Consultant Relationship Specialty Start Date End Date Elsewhere, Pcp PCP - General Internal Medicine 07/27/18 documented as of this encounter
--- OUTSIDE RECORDS SUMMARY | 2022-02-06 06:49 | XMS_ITS | Encounter Summary ---
:1955 Author Organization [facility] Address [address] [place] [address] Care Team Providers Name Role Phone Elsewhere, Pcp Primary Care Provider Unavailable Encounter Details Date Type Department Care Team Description 03/30/2020 Hospital Encounter Department of Laboratory Geeta Rodriguez [facility]ology[facility] [place] [place] [address] [place] [address] Social History Tobacco Use Types Packs/Day [...] do you attend pentecostal or Never 2018 pentecostalism services? Do you [...] Kidney Results for this DIFFERENTIAL, B PM SEWING MACHINE REPAIRER HELPER procedure ar e in the results section. ALANINE AMINOTRANSFERASE Routine 03/30/2020 3:11 Mass Kidney Results for this (ALT), S/P PM SEWING MACHINE REPAIRER HELPER procedure are i n the results section. ASPARTATE Routine 03/30/2020 3:11 Mass Kidney Results for this AMINOTRANSFERASE (AST), PM SEWING MACHINE REPAIRER HELPER proc edure are in S/P the results section. ALKALINE PHOSPHATASE, Routine 03/30/2020 3:11 Mass Kidney Res ults for this S/P PM SEWING MACHINE REPAIRER HELPER procedure are i n the results section. BASIC METABOLIC PANEL, Routine 03/30/2020 3:11 Mass Kidney Re sults for this S/P PM SEWING MACHINE REPAIRER HELPER procedure are i n the results section. documented in this encounter Results (ABNORMAL) CBC without Differential (03/30/2020 3:11 PM SEWING MACHINE REPAIRER HELPER) [facility] Method Time Signature Hemoglobin 13.9 11.6 - 03/30/2020 DTL 15.0 g/dL 3:44 PM SEWING MACHINE REPAIRER HELPER Hematocrit 42.8 35.5 - 03/30/2020 DTL 44.9 % 3:44 PM SEWING MACHINE REPAIRER HELPER Erythrocytes 4.58 3.92 - 03/30/2020 DTL 5.13 3:44 PM SEWING MACHINE REPAIRER HELPER x10(12)/L MCV 93.4 78.2 - 03/30/2020 DTL 97.9 fL 3:44 PM SEWING MACHINE REPAIRER HELPER RBC Distrib Width 12.5 12.2 - 03/30/2020 DTL 16.1 % 3:44 PM SEWING MACHINE REPAIRER HELPER Platelet Count 481 (H) 157 - 371 03/30/2020 DTL x10(9)/L 3:44 PM SEWING MACHINE REPAIRER HELPER Leukocytes 10.9 (H) 3.4 - 9.6 03/30/2020 DTL x10(9)/L 3:44 PM SEWING MACHINE REPAIRER HELPER Specimen Anatomical Collection Method Collection Time Receive d Time (Source) Location / / Volume Laterality Blood (Blood, 03/30/2020 3:11 PM 03/30/19 21 3:34 Venous) SEWING MACHINE REPAIRER HELPER PM SEWING MACHINE REPAIRER HELPER Geeta Ware M.D. LAB BLOOD ADD-ON Performing Organization Address City/State/ZIP Code Phon e Number [facility] - [address] [place], [place] [address] [facility] [place] [place] [address] Laboratories-[facility] [address] ALT (Alanine Aminotransferase) (03/30/2020 3:11 PM SEWING MACHINE REPAIRER HELPER) [facility] Method Time Signature Alanine 27 7 - 45 03/30/2020 DTL Aminotransferase U/L 5:05 PM SEWING MACHINE REPAIRER HELPER (ALT), S Specimen Anatomical Collection Method Collection Time Receive d Time (Source) Location / / Volume Laterality Blood (Blood, 03/30/2020 3:11 PM 03/30/19 3:34 Venous) SEWING MACHINE REPAIRER HELPER PM SEWING MACHINE REPAIRER HELPER Geeta Ware M.D. LAB BLOOD ADD-ON Performing Organization Address City/[facility]/ZIP [facility] Phon e Number [facility] - [address] [place], [place] [address] [place] [address] AST (Aspartate Aminotransferase) (03/30/2020 3:11 PM SEWING MACHINE REPAIRER HELPER) Patholo gist Method Time Signature Aspartate 22 8 - 43 03/30/2020 DTL Aminotransferase U/L 5:05 PM SEWING MACHINE REPAIRER HELPER (AST), S Specimen Anatomical Collection Method Collection Time Receive d Time (Source) Location / / Volume Laterality Blood (Blood, 03/30/2020 3:11 PM 03/30/19 3:34 Venous) SEWING MACHINE REPAIRER HELPER PM SEWING MACHINE REPAIRER HELPER Geeta Ware M.D. LAB BLOOD ADD-ON Performing Organization Address City/[facility] Code Phon e Number [facility] - [address] (ABNORMAL) Alkaline Phosphatase (03/30/2020 3:11 PM SEWING MACHINE REPAIRER HELPER) P athologist Signature Alkaline 116 (H) 35 - 104 03/30/2020 DTL Phosphatase, S U/L 5:05 PM SEWING MACHINE REPAIRER HELPER Specimen Anatomical Collection Method Collection Time Receive d Time (Source) Location / / Volume Laterality Blood (Blood, 03/30/2020 3:11 PM 03/30/19 3:34 Venous) SEWING MACHINE REPAIRER HELPER PM SEWING MACHINE REPAIRER HELPER Geeta Ware M.D. LAB BLOOD ADD-ON Performing Organization Address City/[facility] Phon e Number [facility] - [address] (ABNORMAL) Basic Metabolic Panel (03/30/2020 3:11 PM SEWING MACHINE REPAIRER HELPER) P athologist Signature Potassium, S 3.5 (L) 3.6 - 5.2 03/30/2020 DTL mmol/L 5:05 PM SEWING MACHINE REPAIRER HELPER Sodium, S 144 135 - 145 03/30/2020 DTL mmol/L 5:05 PM SEWING MACHINE REPAIRER HELPER Chloride, S 104 98 - 107 03/30/2020 DTL mmol/L 5:05 PM SEWING MACHINE REPAIRER HELPER Bicarbonate, S 28 22 - 29 03/30/2020 DTL mmol/L 5:05 PM SEWING MACHINE REPAIRER HELPER Anion Gap 12 7 - 15 03/30/2020 DTL 5:05 PM SEWING MACHINE REPAIRER HELPER BUN (Blood Urea 7 6 - 21 03/30/2020 DTL Nitrogen), S mg/dL 5:05 PM SEWING MACHINE REPAIRER HELPER Creatinine 0.99 0.59 - 03/30/2020 DTL 1.04 mg/dL 5:05 PM SEWING MACHINE REPAIRER HELPER eGFR-Non 61 >=60 03/30/2020 DTL Black/ mL/min/BSA 5:05 PM SEWING MACHINE REPAIRER HELPER [place]inese Comment: ----ADDITIONAL INFORMATION---- Estimated GFR calculated using the 2009 CKD_EPI creatinine equation. eGFR-Black/ 70 >=60 mL/min/BSA 2020 5:05 PM SEWING MACHINE REPAIRER HELPER DTL Comment: ----ADDITIONAL INFORMATION---- Estimated GFR calculated using the 2009 CKD_EPI creatinine equation. Calcium, Total, S 9.1 8.8 - 10.2 mg/dL 03/30/2020 5:05 PM SEWING MACHINE REPAIRER HELPER DTL Glucose, S 148 (H) 70 - 140 mg/dL 03/30/2020 5:05 PM SEWING MACHINE REPAIRER HELPER D TL Specimen Anatomical Collection Method Collection Time Receive d Time (Source) Location / / Volume Laterality Blood (Blood, 03/30/2020 3:11 PM 03/30/19 21 3:34 Venous) SEWING MACHINE REPAIRER HELPER PM SEWING MACHINE REPAIRER HELPER Zac Gonzalez M.D. LAB BLOOD ADD-ON Performing Organization Address City/State/ZIP Code Phon e Number [facility] - [address] [place], [place] [address] [facility] [place] [place] [address] Laboratories-[facility] [address] documented in this encounter Visit Diagnoses Diagnosis Mass Kidney documented in this encounter Additional Health Concerns Assessment Noted Time PHQ-9 Depression Total Score: 11 05/04/2013 4:05 PM CS T documented as of this encounter Care Teams Nursing Assoc Relationship Specialty Start Date End Date Elsewhere, Pcp PCP - General Internal Medicine 07/27/18 documented as of this encounter
--- OUTSIDE RECORDS SUMMARY | 2022-02-06 06:49 | XMS_ITS | Encounter Summary ---
:1955 Author Organization [facility] Address [address] [place] [address] Care Team Providers Name Role Phone Elsewhere, Pcp Primary Care Provider Unavailable Reason for Visit Reason Comments COVID Inquiry Encounter Details Date Type Department Care Team Description 01/03/2020 Clinical Communication Department of Zac Gonzalez Urology in Bess Perez [place], [place] [address] [place] [address] Social History Tobacco Use Types [...] do you attend pentecostalism or Never 2018 mormonism services? Do you [...] as of this encounter Care Teams Aoc Operations Intelligence Chief Relationship Specialty Start Date End Date Elsewhere, Pcp PCP - General Internal Medicine 07/27/18 documented as of this encounter
--- OUTSIDE RECORDS SUMMARY | 2022-02-06 06:49 | XMS_ITS | Encounter Summary ---
:1955 Author Organization [facility] Address [address] [place] [address] Care Team Providers Name Role Phone Elsewhere, Pcp Primary Care Provider Unavailable Encounter Details Date Type Department Care Team Description 04/07/2020 Hospital Encounter [facility], in [address] [address] Social History Tobacco Use Types Packs/Day [...] do you attend restoration or Never 2018 sikhism services? Do you [...] COVID19 Pending 04/07/2020 04/07/2020 04/07/2020 7:59 PM FEED MILL TENDER Assessment Noted Time PHQ-9 Depression Total Score: 11 05/04/2013 4:05 PM CS T documented as of this encounter Care Teams General Labor Forklift Operator Relationship Specialty Start Date End Date Elsewhere, Pcp PCP - General Internal Medicine 07/27/18 documented as of this encounter
--- OUTSIDE RECORDS SUMMARY | 2022-02-06 06:49 | XMS_ITS | Encounter Summary ---
:1955 Author Organization [facility] Address [address] [place] [address] Care Team Providers Name Role Phone Elsewhere, Pcp Primary Care Provider Unavailable Encounter Details Date Type Department Care Team Description 01/04/2020 Hospital Encounter Department of Zac Gonzalez Renal Cell Laboratory Medicine CBess Left (HC C) and Pathology, [facility] in [place], [place] [address] [place] [address] Social History Tobacco Use Types Packs/Day Years [...] do you attend christianity or Never 2018 zoroastrianism services? Do you [...] Organization Address City/State/ZIP Code Phon e Number [facility] - [address] [place], [place] [address] [facility] [place] [address] Laboratories-[facility] [address] (ABNORMAL) ALT (Alanine [...] Organization Address City/State/ZIP Code Phon e Number [facility] - [address] [place], [place] [address] [facility] [address] AST (Aspartate Aminotransferase) (01/04/2020 10:58 AM [...] ADD-ON Performing Organization Address City/[facility]/ZIP Code Phon e Number [facility] - [address] [place], [place] [address] [facility] [place] [address] [place] [address] [facility] Calcium, Total (01/04/2020 10:58 AM CDT) P athologist Signature Calcium, Total, 9.0 8.8 - 10.2 01/04/2020 DTL S mg/dL 12:58 PM CDT Specimen Anatomical Collection Method Collection Time Receive d Time (Source) Location / / Volume Laterality Blood (Blood, 01/04/2020 10:58 01/04/2020 Venous) AM CDT 11:38 AM CDT Zac Gonzalez M.D. LAB BLOOD ADD-ON Performing Organization Address City/State/ZIP Code Phon e Number [facility] - [address] [place], [place] [address] [facility] [place] [address] [place] [address] [facility] (ABNORMAL) CBC with Differential, Blood (01/04/2020 10:58 AM CDT) [facility] gist Method Time Signature Hemoglobin 13.5 [...] Organization Address City/State/ZIP Code Phon e Number [facility] - [address] [place], [place] [address] [facility] [place] [address] Laboratories-[facility] [address] Creatinine with Estimated GFR (01/04/2020 10:58 AM CDT) athologist Signature Creatinine 0.87 0.59 - 01/04/2020 DTL 1.04 mg/dL 12:58 PM CDT eGFR-Non 72 >=60 01/04/2020 DTL Black/ mL/min/BSA 12:58 PM CDT Ethiopian Comment: ----ADDITIONAL INFORMATION---- Estimated GFR calculated using [...] ADD-ON Performing Organization Address City/[facility] Phon e Number [facility] - [address] BUN (Blood Urea Nitrogen) (01/04/2020 10:58 AM CDT) athologist Signature BUN (Blood Urea 9 6 - 21 01/04/2020 DTL Nitrogen), S mg/dL 12:58 PM CDT Specimen Anatomical Collection Method Collection Time Receive d Time (Source) Location / / Volume Laterality Blood (Blood, 01/04/2020 10:58 01/04/2020 Venous) AM CDT 11:38 AM CDT Zac Gonzalez M.D. LAB BLOOD ADD-ON Performing Organization Address City/State/[facility] Phon e Number [facility] - [address] Electrolyte (Chem 4) Panel (01/04/2020 10:58 [...] Organization Address City/State/ZIP Code Phon e Number [facility] - [address] [place], [place] [address] [facility] [place] [address] Laboratories-[facility] [address] documented in this encounter Visit Diagnoses Diagnosis Carcinoma Renal Cell Left (HCC) documented in this encounter Additional Health Concerns Assessment Noted Time PHQ-9 Depression Total Score: 11 05/04/2013 4:05 PM CS T documented as of this encounter Care Teams Parking Enforcement Specialist Relationship Specialty Start Date End Date Elsewhere, Pcp PCP - General Internal Medicine 07/27/18 documented as of this encounter
--- OUTSIDE RECORDS SUMMARY | 2022-02-06 06:49 | XMS_ITS | Encounter Summary ---
:1955 Author Organization [facility] Address [address] [place] [address] Care Team Providers Name Role Phone Elsewhere, Pcp Primary Care Provider Unavailable Encounter Details Date Type Department Care Team Description 01/04/2020 Hospital Encounter Department of Zac Gonzalez Renal Cell Laboratory Medicine CBess Left (HC C) and Pathology, [facility] in [place], [place] [address] [place] [address] Social History Tobacco Use Types Packs/Day Years [...] do you attend nondenominational or Never 2018 jew services? Do you [...] e Number [facility] - [address] [place] [address] [facility] [place] [address] Laboratories-[address] (ABNORMAL) Urinalysis with Microscopic: Urine, Midstream (01/04/2020 12:26 PM CDT) [facility] gist Method Time Signature Source Midstream 01/04/2020 [place] 12:26 PM CDT Appearance Normal Normal 01/04/2020 [place] 1:38 PM CDT Osmolality, U 483 150 - 1150 01/04/2020 [place] mOsm/kg 1:24 PM CDT pH, U 5.4 4.5 - 8.0 01/04/2020 [place] 1:24 PM CDT Comment: ----ADDITIONAL INFORMATION---- This test was developed and its performa nce characteristics determined by [facility] in a manner co nsistent [...] [facility] - [address] [place], [place] [address] [place] [address] Laboratories-[facility] [address] documented in this encounter Visit Diagnoses Diagnosis Carcinoma Renal Cell Left (HCC) documented in this encounter Additional Health Concerns Assessment Noted Time PHQ-9 Depression Total Score: 11 05/04/2013 4:05 PM CS T documented as of this encounter Care Teams Construction Scheduler Relationship Specialty Start Date End Date Elsewhere, Pcp PCP - General Internal Medicine 07/27/18 documented as of this encounter
--- OUTSIDE RECORDS SUMMARY | 2022-02-06 06:49 | XMS_ITS | Encounter Summary ---
:1955 Author Organization [facility] Address [address] [place] [address] Care Team Providers Name Role Phone Elsewhere, Pcp Primary Care Provider Unavailable Reason for Referral MRI/CAT/PET Scan (Routine) - Canceled Specialty Diagnoses / Procedures Referred By Contact Refer red To Contact Radiology Diagnoses Mass Kidney Geeta Rodriguez M.D. [place] Procedures CT Abdomen Pelvis with IV Contrast [address] [place] [phone] Referral ID Status Reason Start Date Expiration Date Visits V isits Requested Authorized [id number] Canceled 03/30/2020 03/30/2021 1 1 MOBILE LOCATOR Reason for Visit MRI/CAT/PET Scan (Routine) - Canceled Specialty Diagnoses / Procedures Referred By Contact Refer steven To Contact Radiology Diagnoses Mass Kidney Geeta Rodriguez M.D. [place] Procedures CT Abdomen Pelvis with IV Contrast [address] [place] [address] Referral ID Status Reason Start Date Expiration Date Visits V isits Requested Authorized [id number] Canceled 03/30/2020 03/30/2021 1 1 Encounter Details Date Type Department Care Team Description 03/30/2020 Hospital Encounter Department of Radiology, Geeta Rodriguez [facility] leandro Sagastume M.D. [place], [place] [address] [place] [address] Social History Tobacco Use Types Packs/Day [...] do you attend restorationism or Never 2018 synagogue services? Do you [...] documented as of this encounter Care Teams Materials Handling Equipment Operator Relationship Specialty Start Date End Date Elsewhere, Pcp PCP - General Internal Medicine 07/27/18 documented as of this encounter
--- OUTSIDE RECORDS SUMMARY | 2022-02-06 06:49 | XMS_ITS | Encounter Summary ---
:1955 Author Organization [facility] Address [address] [place] [address] Care Team Providers Name Role Phone Elsewhere, Pcp Primary Care Provider Unavailable Encounter Details Date Type Department Care Team Description 01/13/2020 Clinical Communication Department of Urology Zac Gonzalez in [place] M[address] [phone] Social History Tobacco Use Types Packs/Day Years [...] do you attend congregational or Never 2018 religion services? Do you [...] they will be pushing Iris's MRI into [facility] system today. documented in this encounter Plan of Treatment Not on filedocumented as of this encounter Visit Diagnoses Not on filedocumented in this encounter Additional Health Concerns Assessment Noted Time PHQ-9 Depression Total Score: 11 05/04/2013 4:05 PM CS T documented as of this encounter Care Teams Quiller Operator Relationship Specialty Start Date End Date Elsewhere, Pcp PCP - General Internal Medicine 07/27/18 documented as of this encounter
--- OUTSIDE RECORDS SUMMARY | 2022-02-06 06:49 | XMS_ITS | Encounter Summary ---
:1955 Author Organization [facility] Address [address] [place] [address] Care Team Providers Name Role Phone Elsewhere, Pcp Primary Care Provider Unavailable Encounter Details Date Type Department Care Team Description 03/30/2020 Hospital Encounter Department of Laboratory Geeta Rodriguez [facility] Kidney Medicine and Pathology, [facility] [place], [place] [address] [place] [address] Social History Tobacco Use Types Packs/Day [...] do you attend episcopalian or Never 2018 oriental orthodox services? Do [...] 03/30/2020 4:05 PM Res ults for this FAMILY SERVICE CASEWORKER procedure are i n the results section. URINALYSIS WITH Routine 03/30/2020 4:05 PM Mass Kidney Result s for this MICROSCOPIC FAMILY SERVICE CASEWORKER procedure are i n the results section. documented in this encounter Results (ABNORMAL) Microscopic Manual (03/30/2020 4:05 PM FAMILY SERVICE CASEWORKER) P athologist Signature Microscopy Abnormal 03/30/2020 [place] 6:27 PM FAMILY SERVICE CASEWORKER WBC 4-10 /hpf 03/30/2020 [place] 6:27 PM FAMILY SERVICE CASEWORKER Comment: ----REFERENCE VALUE---- 1-3 ??(Males) 1-10 (Females) Casts, Hyaline 4-10 /lpf 03/30/2020 6:27 PM FAMILY SERVICE CASEWORKER RE NA Squamous Epithelial 4-10 /hpf 03/30/2020 6:[address] [place] Cells, U Bacteria Present (A) 03/30/2020 6:27 PM FAMILY SERVICE CASEWORKER [place] Crystals Calcium Oxalate 03/30/2020 6:27 PM FAMILY SERVICE CASEWORKER R ALFA crystals present Specimen Anatomical Collection Method Collection Time Receive d Time (Source) Location / / Volume Laterality Urine 03/30/2020 4:05 PM 4:05 FAMILY SERVICE CASEWORKER PM FAMILY SERVICE CASEWORKER Geeta Ware M.D. LAB URINE ORDERABLES Performing Organization Address City/State/ZIP Code Phon e Number [facility] - [address] [place], [place] [address] [facility] [place] [address] Laboratories-[facility] [address] (ABNORMAL) Urinalysis with Microscopic: Urine, Clean Catch (03/30/2020 4:05 PM FAMILY SERVICE CASEWORKER) [facility] gist Method Time Signature Source Midstream 03/30/2020 [place] 4:05 PM FAMILY SERVICE CASEWORKER Appearance Normal Normal 03/30/2020 [place] 6:00 PM FAMILY SERVICE CASEWORKER Osmolality, U 536 150 - 1150 03/30/2020 [place] mOsm/kg 5:24 PM FAMILY SERVICE CASEWORKER pH, U 6.1 4.5 - 8.0 03/30/2020 [place] 5:24 PM FAMILY SERVICE CASEWORKER Comment: ----ADDITIONAL INFORMATION---- This test was developed and its performa nce characteristics determined by [facility] in a manner co nsistent with CLIA requirements. This test has not bee n cleared or approved by the U.S. Food and Drug Admin istration. Glucose 16 (H) 0 - 15 mg/dL 03/30/2020 6:00 PM FAMILY SERVICE CASEWORKER [place] Protein, U 35 (H) <26 mg/dL 03/30/2020 6:00 PM FAMILY SERVICE CASEWORKER [place] Comment: ----ADDITIONAL INFORMATION---- On 09/17/2016 the total protein assay me thod changed resulting in approximately a 15% increase in prote in values. Protein/Osmolality 0.65 (H) <0.42 Ratio 03/30/2020 6:00 PM FAMILY SERVICE CASEWORKER [place] Comment: ----ADDITIONAL INFORMATION---- On 09/17/2016 the total protein assay me thod changed resulting in approximately a 15% increase in prote in values. Predicted 24 Hr Protein 454 mg/24 h 03/30/2020 6:00 PM FAMILY SERVICE CASEWORKER [place] Predicted Range 112-1839 mg/24 h 03/30/2020 6:00 PM FAMILY SERVICE CASEWORKER R ALFA Hemoglobin, QL Negative Negative 03/30/2020 6:27 PM FAMILY SERVICE CASEWORKER RE NA Specimen Anatomical Collection Method Collection Time Receive d Time (Source) Location / / Volume Laterality Urine (Urine, 03/30/2020 4:05 PM 03/30/19 4:05 Clean Catch) FAMILY SERVICE CASEWORKER PM FAMILY SERVICE CASEWORKER Geeta Ware M.D. LAB URINE ORDERABLES Performing Organization Address City/State/ZIP Code Phon e Number [facility] - [address] [place], [place] [address] [place] [address] Laboratories-[facility] [address] documented in this encounter Visit Diagnoses Diagnosis Mass Kidney documented in this encounter Additional Health Concerns Assessment Noted Time PHQ-9 Depression Total Score: 11 05/04/2013 4:05 PM CS T documented as of this encounter Care Teams Drupal Developer Relationship Specialty Start Date End Date Elsewhere, Pcp PCP - General Internal Medicine 07/27/18 documented as of this encounter
--- OUTSIDE RECORDS SUMMARY | 2022-02-06 06:49 | XMS_ITS | Encounter Summary ---
:1955 Author Organization [facility] Address [address] [place] [address] Care Team Providers Name Role Phone Elsewhere, Pcp Primary Care Provider Unavailable Reason for Referral MRI/CAT/PET Scan (Routine) - Closed Specialty Diagnoses / Procedures Referred By Contact Refer red To Contact Radiology Diagnoses [facility] Harish Harkins M.D. [facility] Procedures CT Chest without IV Contrast [address] [place] [address] Referral ID Status Reason Start Date Expiration Date Visits Requ ested Visits Authorized [id number] Closed 03/20/2020 03/20/2021 1 1 NT ACQUISITION ASSISTANT Reason for Visit Reason Comments [facility] Triage Encounter Details Date Type Department Care Team Description 03/20/2020 Clinical Communication Division of Pulmonary Adonay Leal [facility] Triage Medicine in [place], [place] [address] [facility] [address] [place] [phone] Social History Tobacco Use [...] do you attend baptism or Never 2018 jainism services? Do you [...] PRIOR TO CONSULT All images loaded into Venuu, no additional requests needed. NT ACQUISITION ASSISTANT documented in this encounter Plan of Treatment Not on filedocumented as of this encounter Results CT Chest without IV Contrast (03/30/2020 10:26 AM TALENT ACQUISITION ASSISTANT) Anatomical Region Laterality Modality Chest, Thoracic RST LOS, Thoracic ARZ N/A Co mputed Tomography, Computed LOS, Thoracic FLA LOS Tomography Specimen (Source) Anatomical Collection Method Collection Time Re ceived Time Location / / Volume Laterality 03/30/2020 10:59 AM TALENT ACQUISITION ASSISTANT Impressions 03/30/2020 12:08 PM TALENT ACQUISITION ASSISTANT 1. Decrease in size of the left [...] recommendations are attached. Narrative 03/30/2020 12:08 PM TALENT ACQUISITION ASSISTANT EXAM: CT CHEST WITHOUT IV CONTRAST COMPARISON: [...] documented as of this encounter Care Teams Hamper Maker Machine Relationship Specialty Start Date End Date Elsewhere, Pcp PCP - General Internal Medicine 07/27/18 documented as of this encounter
--- OUTSIDE RECORDS SUMMARY | 2022-02-06 06:49 | XMS_ITS | Encounter Summary ---
:1955 Author Organization [facility] Address [address] [place] [address] Care Team Providers Name Role Phone Elsewhere, Pcp Primary Care Provider Unavailable Reason for Referral MRI/CAT/PET Scan (Routine) - Closed Specialty Diagnoses / Procedures Referred By Contact Refer red To Contact Radiology Diagnoses [facility] Pulmonary Harish Harkins M.D. [facility] Procedures CT Chest without IV Contrast [address] [place] [address] Referral ID Status Reason Start Date Expiration Date Visits Requ ested Visits Authorized [id number] Closed 03/20/2020 03/20/2021 1 1 CULTURAL EDUCATION PROFESSOR Reason for Visit MRI/CAT/PET Scan (Routine) - Closed Specialty Diagnoses / Procedures Referred By Contact Refer red To Contact Radiology Diagnoses [facility] Harish Harkins M.D. [facility] Procedures CT Chest without IV Contrast [address] [place] [address] Referral ID Status Reason Start Date Expiration Date Visits Requ ested Visits Authorized [id number] Closed 03/20/2020 03/20/2021 1 1 Encounter Details Date Type Department Care Team Description 03/30/2020 Hospital Encounter Department of Harish Harkins [facility] RadiologyGarett M.D. Building, in [address] [place], [place] [address] [facility] [address] [place], [place] [phone] (Work) [phone] Social History Tobacco Use Types Packs/Day Years [...] do you attend latter-day or Never 2018 jehovah's witness services? Do [...] for this IV CONTRAST (most inpatients AM AGRICULTURAL EDUCATION PROFESSOR procedure a re in and all the results outpatients) section. documented in this encounter Results CT Chest without IV Contrast (03/30/2020 10:26 AM AGRICULTURAL EDUCATION PROFESSOR) Anatomical Region Laterality Modality Chest, Thoracic RST LOS, Thoracic ARZ N/A Co mputed Tomography, Computed LOS, Thoracic FLA LOS Tomography Specimen (Source) Anatomical Collection Method Collection Time Re ceived Time Location / / Volume Laterality 03/30/2020 10:59 AM AGRICULTURAL EDUCATION PROFESSOR Impressions 03/30/2020 12:08 PM AGRICULTURAL EDUCATION PROFESSOR 1. Decrease in size of the left [...] recommendations are attached. Narrative 03/30/2020 12:08 PM AGRICULTURAL EDUCATION PROFESSOR EXAM: CT CHEST WITHOUT IV CONTRAST COMPARISON: [...] as of this encounter Care Teams Manager Php Relationship Specialty Start Date End Date Elsewhere, Pcp PCP - General Internal Medicine 07/27/18 documented as of this encounter
--- OUTSIDE RECORDS SUMMARY | 2022-02-06 06:49 | XMS_ITS | Encounter Summary ---
:1955 Author Organization [facility] Address [address] [place] [address] Care Team Providers Name Role Phone Elsewhere, Pcp Primary Care Provider Unavailable Reason for Referral Outpatient (Routine) - Closed Specialty Diagnoses / Procedures Referred By Contact Refer red To Contact Pulmonary Medicine Geeta Rodriguez [place] M.D. [address] [place] [address] Referral ID Status Reason Start Date Expiration Date Visits Requ ested Visits Authorized [id number] Closed 03/30/2020 03/30/2021 1 1 MAKER MRI/CAT/PET Scan (Routine) - Closed Specialty Diagnoses / Procedures Referred By Contact Refer red To Contact Radiology Diagnoses Nodule Pulmonary Geeta Rodriguez M.D. [facility] Procedures CT Chest without IV Contrast [address] [place] [address] Referral ID Status Reason Start Date Expiration Date Visits Requ ested Visits Authorized [id number] Closed 03/30/2020 03/30/2021 1 1 MAKER Outpatient (Routine) - Closed Specialty Diagnoses / Procedures Referred By Contact Refer red To Contact Otorhinolaryngology Diagnoses Hoarseness Chronic Geeta Rodriguez [place] M.D. [address] [place] [address] Referral ID Status Reason Start Date Expiration Date Visits Requ ested Visits Authorized [id number] Closed 03/30/2020 03/30/2021 1 1 MAKER Reason for Visit Appointment Request (Routine) - Closed Specialty Diagnoses / Procedures Referred By Contact Refer red To Contact Pulmonary Medicine Diagnoses Nodule Pulmonary Referral ID Status Reason Start Date Expiration Date Visits Requ ested Visits Authorized [id number] Closed 02/29/2020 02/28/2021 1 1 Encounter Details Date Type Department Care Team Description 03/30/2020 Comprehensive Visit Division of Harish Ware, Holli P ulmonary (Primary Dx); Pulmonary Medicine Geeta Urias M.D. arsen ess Chronic; in [facility] [address] [place] [address] Social History Tobacco Use Types Packs/Day Years [...] do you attend gnosticist or Never 2018 yarsanism services? Do you [...] Comments Blood Pressure 148/86 03/30/2020 1:16 PM KING MAKER Pulse 61 03/30/2020 1:16 PM KING MAKER Temperature 36.1 ??C (97 ??F) 03/30/2020 1:16 PM KING MAKER Respiratory Rate - - Oxygen Saturation 98% 03/30/2020 1:16 PM KING MAKER Inhaled Oxygen Concentration - - Weight 90.2 kg (198 lb 13.7 oz) 03/30/2020 1:16 PM KING MAKER Height 164.4 cm (5' 4.72) 03/30/2020 1:16 PM KING MAKER Body Mass Index 33.37 03/30/2020 1:16 PM KING MAKER documented in this encounter Consult Notes Geeta [...] intact. No evidence of disorganizedthinking. Reliable history reverser. DIAGNOSTIC REVIEW I have reviewed the patient's [...] spent a total of 45 minutes in iep-zfzq-hf-face time performing a review of the record and/or discussion with the patient/caregiver as described above. MAKER Jil Mendoza M.D. - 03/30/2020 1:30 PM [...] Dr. Harish Ware's note from today's date. MAKER documented in this encounter Plan of [...] Microscopic: Urine, Clean Catch (03/30/2020 4:05 PM KING MAKER) [facility] Method Time Signature Source Midstream 03/30/2020 FREDY 4:05 PM KING MAKER Appearance Normal Normal 03/30/2020 FREDY 6:00 PM KING MAKER Osmolality, U 536 150 - 1150 03/30/2020 FREDY mOsm/kg 5:24 PM KING MAKER pH, U 6.1 4.5 - 8.0 03/30/2020 FREDY 5:24 PM KING MAKER Comment: ----ADDITIONAL INFORMATION---- This test was developed and its performa nce characteristics determined by [facility] in a manner co nsistent with CLIA requirements. This test has not bee n cleared or approved by the U.S. Food and Drug Admin istration. Glucose 16 (H) 0 - 15 mg/dL 03/30/2020 6:00 PM KING MAKER FREDY Protein, U 35 (H) <26 mg/dL 03/30/2020 6:00 PM KING MAKER FREDY Comment: ----ADDITIONAL INFORMATION---- On 09/17/2016 the total protein assay me thod changed resulting in approximately a 15% increase in prote in values. Protein/Osmolality 0.65 (H) <0.42 Ratio 03/30/2020 6:00 PM KING MAKER FREDY Comment: ----ADDITIONAL INFORMATION---- On 09/17/2016 the total protein assay me thod changed resulting in approximately a 15% increase in prote in values. Predicted 24 Hr Protein 454 mg/24 h 03/30/2020 6:00 PM KING MAKER FREDY Predicted Range 112-1839 mg/24 h 03/30/2020 6:00 PM KING MAKER R ALFA Hemoglobin, QL Negative Negative 03/30/2020 6:27 PM KING MAKER RE NA Specimen Anatomical Collection Method Collection Time Receive d Time (Source) Location / / Volume Laterality Urine (Urine, 03/30/2020 4:05 PM 03/30/19 4:05 Clean Catch) KING MAKER PM KING MAKER Geeta Ware M.D. LAB URINE ORDERABLES Performing Organization Address City/State/ZIP Code Phon e Number [facility] - 200 [place], [place] [address] [place] [address] [facility] [address] [facility] (ABNORMAL) CBC without Differential (03/30/2020 3:11 PM KING MAKER) [facility] Method Time Signature Hemoglobin 13.9 11.6 - 03/30/2020 DTL 15.0 g/dL 3:44 PM KING MAKER Hematocrit 42.8 35.5 - 03/30/2020 DTL 44.9 % 3:44 PM KING MAKER Erythrocytes 4.58 3.92 - 03/30/2020 DTL 5.13 3:44 PM KING MAKER x10(12)/L MCV 93.4 78.2 - 03/30/2020 DTL 97.9 fL 3:44 PM KING MAKER RBC Distrib Width 12.5 12.2 - 03/30/2020 DTL 16.1 % 3:44 PM KING MAKER Platelet Count 481 (H) 157 - 371 03/30/2020 DTL x10(9)/L 3:44 PM KING MAKER Leukocytes 10.9 (H) 3.4 - 9.6 03/30/2020 DTL x10(9)/L 3:44 PM KING MAKER Specimen Anatomical Collection Method Collection Time Receive d Time (Source) Location / / Volume Laterality Blood (Blood, 03/30/2020 3:11 PM 03/30/19 21 3:34 Venous) KING MAKER PM KING MAKER Geeta Ware M.D. LAB BLOOD ADD-ON Performing Organization Address City/State/ZIP Code Phon e Number [facility] - [address] [place], [place] [address] [facility] [address] ALT (Alanine Aminotransferase) (03/30/2020 3:11 PM KING MAKER) [facility] gist Method Time Signature Alanine 27 7 - 45 03/30/2020 DTL Aminotransferase U/L 5:05 PM KING MAKER (ALT), S Specimen Anatomical Collection Method Collection Time Receive d Time (Source) Location / / Volume Laterality Blood (Blood, 03/30/2020 3:11 PM 03/30/19 21 3:34 Venous) KING MAKER PM KING MAKER Geeta Ware M.D. LAB BLOOD ADD-ON Performing Organization Address City/State/ZIP Code Phon e Number [facility] - [address] [place], [place] [address] [place] [address] AST (Aspartate Aminotransferase) (03/30/2020 3:11 PM KING MAKER) [facility] Method Time Signature Aspartate 22 8 - 43 03/30/2020 DTL Aminotransferase U/L 5:05 PM KING MAKER (AST), S Specimen Anatomical Collection Method Collection Time Receive d Time (Source) Location / / Volume Laterality Blood (Blood, 03/30/2020 3:11 PM 03/30/19 21 3:34 Venous) KING MAKER PM KING MAKER Geeta Ware M.D. LAB BLOOD ADD-ON Performing Organization Address City/State/ZIP Code Phon e Number [facility] - [address] [place], [place] [address] [facility] [place], [place] [address] [place] [address] (ABNORMAL) Alkaline Phosphatase (03/30/2020 3:11 PM KING MAKER) P athologist Signature Alkaline 116 (H) 35 - 104 03/30/2020 DTL Phosphatase, S U/L 5:05 PM KING MAKER Specimen Anatomical Collection Method Collection Time Receive d Time (Source) Location / / Volume Laterality Blood (Blood, 03/30/2020 3:11 PM 03/30/19 21 3:34 Venous) KING MAKER PM KING MAKER Geeta Ware M.D. LAB BLOOD ADD-ON Performing Organization Address City/State/[facility] Code Phon e Number [facility] - [address] [place], [place] [address] [facility] [place] [address] [facility] [address] documented in this encounter Visit Diagnoses Diagnosis Nodule Pulmonary - Primary Hoarseness Chronic Mass Kidney documented in this encounter Additional Health Concerns Assessment Noted Time PHQ-9 Depression Total Score: 11 05/04/2013 4:05 PM CS T documented as of this encounter Care Teams Fermentation Manager Relationship Specialty Start Date End Date Elsewhere, Pcp PCP - General Internal Medicine 07/27/18 documented as of this encounter
--- OUTSIDE RECORDS SUMMARY | 2022-02-06 06:49 | XMS_ITS | Encounter Summary ---
:1955 Author Organization [facility] Address [address] [place] [address] Care Team Providers Name Role Phone Elsewhere, Pcp Primary Care Provider Unavailable Reason for Referral Outpatient (Routine) - Closed Specialty Diagnoses / Procedures Referred By Contact Refer red To Contact Urology Zac Kuo M.D. [facility] 200 [place] [address] Referral ID Status Reason Start Date Expiration Date Visits Requ ested Visits Authorized [id number] Closed 01/05/2020 01/04/2021 1 1 Reason for Visit Appointment Request (Routine) - Closed Specialty Diagnoses / Procedures Referred By Contact Refer steven To Contact Urology Diagnoses Carcinoma Renal Cell Left (HCC) Kandace Mckeon D.O. [address] [place] [address] Referral ID Status Reason Start Date Expiration Date Visits Requ ested Visits Authorized [id number] Closed 12/28/2019 12/27/2020 1 1 Encounter Details Date Type Department Care Team Description 01/04/2020 Comprehensive Visit Department of Dane Kuo (Primary Dx); Urology in Zac Perez M.D. Chronic Obst ructive Pulmonary Disease Exacerbation (HCC) [place], [place] [address] [place] [phone] Social History Tobacco Use Types Packs/Day Years [...] do you attend restoration or Never 2018 gnosticism services? Do you [...] at the request of Kandace Mckeon D.O. [address] [place], [place] [phone] CHIEF COMPLAINT Renal mass BURNER HAND calendar HISTORY OF PRESENT ILLNESS Ms. 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 she walks with [...] Name Type Priority Associated Diagnoses Order S [facility] Urology office Outpatient Referral Routine Expect ed: visit (clinic) 04/06/2020 (Approximate), Expires: 01/04/2023 documented as of this encounter Results (ABNORMAL) Basic Metabolic Panel (03/30/2020 3:11 PM ECONOMETRICS PROFESSOR) P athologist Signature Potassium, S 3.5 (L) 3.6 - 5.2 03/30/2020 DTL mmol/L 5:05 PM ECONOMETRICS PROFESSOR Sodium, S 144 135 - 145 03/30/2020 DTL mmol/L 5:05 PM ECONOMETRICS PROFESSOR Chloride, S 104 98 - 107 03/30/2020 DTL mmol/L 5:05 PM ECONOMETRICS PROFESSOR Bicarbonate, S 28 22 - 29 03/30/2020 DTL mmol/L 5:05 PM ECONOMETRICS PROFESSOR Anion Gap 12 7 - 15 03/30/2020 DTL 5:05 PM ECONOMETRICS PROFESSOR BUN (Blood Urea 7 6 - 21 03/30/2020 DTL Nitrogen), S mg/dL 5:05 PM ECONOMETRICS PROFESSOR Creatinine 0.99 0.59 - 03/30/2020 DTL 1.04 mg/dL 5:05 PM ECONOMETRICS PROFESSOR eGFR-Non 61 >=60 03/30/2020 DTL Black/ mL/min/BSA 5:05 PM ECONOMETRICS PROFESSOR [place]inamese Comment: ----ADDITIONAL INFORMATION---- Estimated GFR calculated using the 2009 CKD_EPI creatinine equation. eGFR-Black/ 70 >=60 mL/min/BSA 2020 5:05 PM ECONOMETRICS PROFESSOR DTL Comment: ----ADDITIONAL INFORMATION---- Estimated GFR calculated using the 2009 CKD_EPI creatinine equation. Calcium, Total, S 9.1 8.8 - 10.2 mg/dL 03/30/2020 5:05 PM ECONOMETRICS PROFESSOR DTL Glucose, S 148 (H) 70 - 140 mg/dL 03/30/2020 5:05 PM ECONOMETRICS PROFESSOR D TL Specimen Anatomical Collection Method Collection Time Receive d Time (Source) Location / / Volume Laterality Blood (Blood, 03/30/2020 3:11 PM 03/30/19 3:34 Venous) ECONOMETRICS PROFESSOR PM ECONOMETRICS PROFESSOR Zac Kuo M.D. LAB BLOOD ADD-ON Performing Organization Address City/State/ZIP Code Phon e Number [facility] - [address] [place], [place] [address] [facility] [place] [address] [facility] [address] documented in this encounter Visit Diagnoses Diagnosis Mass Kidney - Primary Chronic Obstructive Pulmonary Disease Ex acerbation (HCC) documented in this encounter Additional Health Concerns Assessment Noted Time PHQ-9 Depression Total Score: 11 05/04/2013 4:05 PM CS T documented as of this encounter Care Teams Oil Burner Installer Relationship Specialty Start Date End Date Elsewhere, Pcp PCP - General Internal Medicine 07/27/18 documented as of this encounter
--- OUTSIDE RECORDS SUMMARY | 2022-02-06 06:49 | XMS_ITS | Encounter Summary ---
:1955 Author Organization [facility] Address [address] [place] [address] Care Team Providers Name Role Phone Elsewhere, Pcp Primary Care Provider Unavailable Reason for Visit Reason Comments Request for records Encounter Details Date Type Department Care Team Description 01/05/2020 Clinical Communication Department of Regine Gonzalez for records Urology in Zac Perez M.D. [place], [place] [address] [place] [address] Social History Tobacco Use Types [...] do you attend sabianism or Never 2018 buddhist services? Do you [...] AM CDT Request for records faxed to [employer] Release of Information - FAX: [phone]. documented in this encounter Plan of Treatment Not on filedocumented as of this encounter Visit Diagnoses Not on filedocumented in this encounter Additional Health Concerns Assessment Noted Time PHQ-9 Depression Total Score: 11 05/04/2013 4:05 PM CS T documented as of this encounter Care Teams Frame Fixer Relationship Specialty Start Date End Date Elsewhere, Pcp PCP - General Internal Medicine 07/27/18 documented as of this encounter
--- OUTSIDE RECORDS SUMMARY | 2022-02-06 06:50 | XMS_ITS | Encounter Summary ---
:1955 Author Organization [facility] Address [address] [place] [address] Care Team Providers Name Role Phone Elsewhere, Pcp Primary Care Provider Unavailable Reason for Referral MRI/CAT/PET Scan (Routine) - Closed Specialty Diagnoses / Procedures Referred By Contact Refer red To Contact Radiology Diagnoses Flutter Atrial (HCC) Atrial Fibrillation Paroxysmal (HCC) Tucker Rutherford P.A.-C. [facility] Procedures CT Cardiac Angiogram Pulmonary Veins with IV [address] [place] [address] Referral ID Status Reason Start Date Expiration Date Visits Requ ested Visits Authorized [id number] Closed 04/21/2019 04/20/2020 1 1 Reason for Visit MRI/CAT/PET Scan (Routine) - Closed Specialty Diagnoses / Procedures Referred By Contact Refer red To Contact Radiology Diagnoses Flutter Atrial (HCC) Atrial Fibrillation Paroxysmal (HCC) Tucker Rutherford P.A.-C. [facility] Procedures CT Cardiac Angiogram Pulmonary Veins with IV [address] [place] [address] Referral ID Status Reason Start Date Expiration Date Visits Requ ested Visits Authorized [id number] Closed 04/21/2019 04/20/2020 1 1 Encounter Details Date Type Department Care Team Description 08/18/2019 Hospital Encounter Department of MichellenTucker, Lynettet ter Atrial (HCC); Radiology, Garett Torres Atrial Fibrillation Paroxysmal (HCC); Building, in [address] [place] [address] Atrial Fibrillation Paroxysmal (HCC) [facility] [address] 200 [facility] [phone] [place], [place] (Work) [phone] Social History Tobacco Use Types Packs/Day Years [...] do you attend mu-ism or Never 2018 advent services? Do you [...] thoracic spine. Cholecystectomy clips se en on rigging up worker images. GUIDELINES FOR FOLLOW-UP of newly detect [...] thoracic spine. Cholecystectomy clips se en on rigging up worker images. GUIDELINES FOR FOLLOW-UP of newly detect [...] fo r recommended surveillance. Tucker Rutherford P.A.-C. [facility] CT PROCEDURES Creatinine, POCT (08/18/2019 9:20 AM [...] Number POC AMALIA PERFORMING [address] [place] [address] LABS PCDT [facility] [place] [address] [place] [facility] [address] Creatinine, POCT (08/18/2019 9:20 AM CDT) P athologist Signature eGFR-Black/Afri >90 >=60 08/18/2019 PCMO can Greek, mL/min/BSA 9:25 AM CDT POCT Comment: ----ADDITIONAL [...] City/State/ZIP Code Phon e Number POC [facility] [address] [place] [address] OUTPATIENT LABS PCMO [facility] [place] [address] [place] [facility] [address] documented in this [...] documented as of this encounter Care Teams Naval Gunfire Liaison Officer Relationship Specialty Start Date End Date Elsewhere, Pcp PCP - General Internal Medicine 07/27/18 documented as of this encounter
--- OUTSIDE RECORDS SUMMARY | 2022-02-06 06:50 | XMS_ITS | Encounter Summary ---
:1955 Author Organization [facility] Address [address] [place] [address] Care Team Providers Name Role Phone Elsewhere, Pcp Primary Care Provider Unavailable Reason for Referral Outpatient (Routine) - Closed Specialty Diagnoses / Procedures Referred By Contact Refer red To Contact Diagnoses Flutter Atrial (HCC) Atrial Fibrillation Paroxysmal (HCC) Tucker Rutherford P.A.-C. [facility] Procedures Echo Transthoracic (TTE) [address] [place] [address] Referral ID Status Reason Start Date Expiration Date Visits Requ ested Visits Authorized [id number] Closed 04/21/2019 04/20/2020 1 1 Reason for Visit Outpatient (Routine) - Closed Specialty Diagnoses / Procedures Referred By Contact Refer red To Contact Diagnoses Flutter Atrial (HCC) Atrial Fibrillation Paroxysmal (HCC) Tucker Rutherford P.A.-C. [facility] Procedures Echo Transthoracic (TTE) [address] [place] [address] Referral ID Status Reason Start Date Expiration Date Visits Requ ested Visits Authorized [id number] Closed 04/21/2019 04/20/2020 1 1 Encounter Details Date Type Department Care Team Description 08/19/2019 Hospital Department of Hirn, Tucker Flutter Atria l (HCC); Encounter Cardiovascular Brian Caballero Atrial Fibrillation Paroxysmal (HCC) Diseases in [place], [facility] [address] [place], [place] [address] [address] [place], [place] [phone] [address] (Work) [phone] Social History Tobacco Use Types Packs/Day Years [...] do you attend methodist or Never 2018 church services? Do you [...] layer. For the complete report, see the [email or web address] Documents. Narrative 08/19/2019 1:52 PM CDT For the complete report, see the [email or web address] Documents. Final Impressions 1. Echocardiogram performed per [...] 08/19/2019 For the complete report, see the [email or web address] Documents. Final Impressions 1. Echocardiogram performed per [...] documented as of this encounter Care Teams Power Distributor Relationship Specialty Start Date End Date Elsewhere, Pcp PCP - General Internal Medicine 07/27/18 documented as of this encounter
--- OUTSIDE RECORDS SUMMARY | 2022-02-06 06:50 | XMS_ITS | Encounter Summary ---
:1955 Author Organization [facility] Address [address] [place] [address] Care Team Providers Name Role Phone Elsewhere, Pcp Primary Care Provider Unavailable Encounter Details Date Type Department Care Team Description 12/30/2019 Clinical Communication Department of Urology Zac Gonzalez in [place] [address] [place] [address] Social History Tobacco Use Types Packs/Day Years [...] do you attend scientologist or Never 2018 sikhism services? Do you [...] Microscopic: Urine, Midstream (01/04/2020 12:26 PM CDT) [facility] Method Time Signature Source Midstream 01/04/2020 FREDY 12:26 PM CDT Appearance Normal Normal 01/04/2020 FREDY 1:38 PM CDT Osmolality, U 483 150 - 1150 01/04/2020 FREDY mOsm/kg 1:24 PM CDT pH, U 5.4 4.5 - 8.0 01/04/2020 FREDY 1:24 PM CDT Comment: ----ADDITIONAL INFORMATION---- This test was developed and its performa nce characteristics determined by [facility] in a manner co nsistent with [...] Organization Address City/State/ZIP Code Phon e Number [facility] - [address] [place], [place] [address] [facility] [place] [address] [facility] [address] DX Chest AP or [...] e Number [facility] - [address] [place], [place] [address] [place], [place] [address] [address] (ABNORMAL) ALT (Alanine Aminotransferase) (01/04/2020 10:58 AM CDT) [facility] Method Time Signature Alanine 56 (H) 7 - 45 01/04/2020 DTL Aminotransferase U/L 12:58 PM CDT (ALT), S Specimen Anatomical Collection Method Collection Time Receive d Time (Source) Location / / Volume Laterality Blood (Blood, 01/04/2020 10:58 01/04/2020 Venous) AM CDT 11:38 AM CDT Zac Gonzalez M.D. LAB BLOOD ADD-ON Performing Organization Address City/State/ZIP Code Phon e Number [facility] - [id number] [place] [address] AST (Aspartate Aminotransferase) (01/04/2020 10:58 AM CDT) [facility] Method Time Signature Aspartate 33 8 - 43 01/04/2020 DTL Aminotransferase U/L 12:58 PM CDT (AST), S Specimen Anatomical Collection Method Collection Time Receive d Time (Source) Location / / Volume Laterality Blood (Blood, 01/04/2020 10:58 01/04/2020 Venous) AM CDT 11:38 AM CDT Zac Gonzalez M.D. LAB BLOOD ADD-ON Performing Organization Address City/State/ZIP Code Phon e Number [facility] - [address] [place], [place] [address] [place] [address] Calcium, Total (01/04/2020 10:58 AM CDT) P athologist Signature Calcium, Total, 9.0 8.8 - 10.2 01/04/2020 DTL S mg/dL 12:58 PM CDT Specimen Anatomical Collection Method Collection Time Receive d Time (Source) Location / / Volume Laterality Blood (Blood, 01/04/2020 10:58 01/04/2020 Venous) AM CDT 11:38 AM CDT Zac Gonzalez M.D. LAB BLOOD ADD-ON Performing Organization Address City/State/ZIP Code Phon e Number [facility] - [address] [place], [place] [address] [facility] [place] [place] [address] [facility] [address] [facility] (ABNORMAL) CBC with Differential, Blood (01/04/2020 10:58 AM CDT) [facility] Method Time Signature Hemoglobin 13.5 11.6 - [...] Organization Address City/State/ZIP Code Phon e Number [facility] - [address] [place], [place] [address] [facility] [address] Creatinine with Estimated GFR (01/04/2020 10:58 AM CDT) athologist Signature Creatinine 0.87 0.59 - 01/04/2020 DTL 1.04 mg/dL 12:58 PM CDT eGFR-Non 72 >=60 01/04/2020 DTL Black/ mL/min/BSA 12:58 PM CDT Palestinian Comment: ----ADDITIONAL INFORMATION---- Estimated GFR calculated using [...] M.D. LAB BLOOD ADD-ON Performing Organization Address City/[facility]/ZIP Code Phon e Number [facility] - [address] [place], [place] [address] [place], [place] [id number] [place] [address] BUN (Blood Urea Nitrogen) [...] Organization Address City/State/ZIP Code Phon e Number [facility] - [address] [place], [place] [address] [facility] [place], [place] [id number] [place] [address] [address] [facility] Electrolyte (Chem 4) Panel (01/04/2020 10:58 AM [...] 01/04/2020 Venous) AM CDT 11:38 AM CDT aZc Gonzalez M.D. LAB BLOOD ADD-ON Performing Organization Address City/State/ZIP Code Phon e Number [facility] - [address] [place] [address] [facility] [place] [address] [facility] [address] [facility] documented in this encounter Visit Diagnoses Diagnosis Carcinoma Renal Cell Left (HCC) - Primar y Carcinoma Renal Cell Left (HCC) documented in this encounter Additional Health Concerns Assessment Noted Time PHQ-9 Depression Total Score: 11 05/04/2013 4:05 PM CS T documented as of this encounter Care Teams Electrical And Radio Mock Up Mechanic Relationship Specialty Start Date End Date Elsewhere, Pcp PCP - General Internal Medicine 07/27/18 documented as of this encounter
--- OUTSIDE RECORDS SUMMARY | 2022-02-06 06:50 | XMS_ITS | Encounter Summary ---
:1955 Author Organization [facility] Address [address] [place] [address] Care Team Providers Name Role Phone Elsewhere, Pcp Primary Care Provider Unavailable Reason for Referral Outpatient (Routine) - Closed Specialty Diagnoses / Procedures Referred By Contact Refer red To Contact Diagnoses Flutter Atrial (HCC) Atrial Fibrillation Paroxysmal (HCC) Tucker Rutherford P.A.-C. [facility] Procedures ECG Heart rhythm monitor (Holter) [address] [place] [address] Referral ID Status Reason Start Date Expiration Date Visits Requ ested Visits Authorized [id number] Closed 04/21/2019 04/20/2020 1 1 Reason for Visit Outpatient (Routine) - Closed Specialty Diagnoses / Procedures Referred By Contact Refer red To Contact Diagnoses Flutter Atrial (HCC) Atrial Fibrillation Paroxysmal (HCC) Tucker Rutherford P.A.-C. [facility] Procedures ECG Heart rhythm monitor (Holter) [address] [place] [address] Referral ID Status Reason Start Date Expiration Date Visits Requ ested Visits Authorized [id number] Closed 04/21/2019 04/20/2020 1 1 Encounter Details Date Type Department Care Team Description 08/18/2019 Hospital Department of Tucker Rutherford Flutter Atria l (HCC); Encounter Cardiovascular Brian Caballero Atrial Fibrillation Paroxysmal (HCC) Diseases in [place], [facility] [address] [place], [place] [address] [place], [place] [phone] (Work) [phone] Social History Tobacco Use Types Packs/Day Years [...] do you attend cheondoism or Never 2018 judaism services? Do you [...] Atr ial (HCC) Results for this [facility] AM CDT Atrial Fibrillation proced ure are in Paroxysmal (HCC) the results section. documented in this encounter Results HOLTER MONITOR - IN [facility]INIC [facility] (08/18/2019 10:48 AM CDT) [facility] gist Method Time Signature SVE Max Per [...] count HOLTER Hour SENTINEL Max Heart Rate [id number] HOLTER Time SENTINEL Specimen (Source) Anatomical Collection [...] documented as of this encounter Care Teams Engineer Specialist Relationship Specialty Start Date End Date Elsewhere, Pcp PCP - General Internal Medicine 07/27/18 documented as of this encounter
--- OUTSIDE RECORDS SUMMARY | 2022-02-06 06:50 | XMS_ITS | Encounter Summary ---
:1955 Author Organization [facility] Address [address] [place] [address] Care Team Providers Name Role Phone Elsewhere, Pcp Primary Care Provider Unavailable Reason for Visit Reason Onset Date Comments Follow-up 05/18/2019 Encounter Details Date Type Department Care Team Description 05/18/2019 Clinical Communication Outpatient Surgery and Jovani Ingram, Follow-up Procedural Admissions R.NEdilma, CCRN in [place], [address] [place], [place] [address] [facility] [address] [place], [place] [phone] (Work) [phone] Social History Tobacco Use Types Packs/Day Years [...] do you attend restorationist or Never 2018 samaritan services? Do you [...] documented as of this encounter Care Teams Periodicals Library Assistant Relationship Specialty Start Date End Date Elsewhere, Pcp PCP - General Internal Medicine 07/27/18 documented as of this encounter
--- OUTSIDE RECORDS SUMMARY | 2022-02-06 06:50 | XMS_ITS | Encounter Summary ---
:1955 Author Organization [facility] Address [address] [place] [id number] Care Team Providers Name Role Phone Elsewhere, Pcp Primary Care Provider Unavailable Reason for Visit Outpatient (Routine) - Closed Specialty Diagnoses / Procedures Referred By Referred To Contact Contact Cardiovascular Diseases / Diagnoses Flutter Atrial (HCC) Atrial Fibrillation Paroxysmal (HCC) [facility] [address] [place] [phone] Referral ID Status Reason Start Date Expiration Date Visits Requ ested Visits Authorized [id number] Closed 04/21/2019 04/20/2020 1 1 Encounter Details Date Type Department Care Team Description 08/19/2019 Office Visit Department of Naren Arroyo M.D. Flutter Atrial (HCC); Cardiovascular Medicine Porfirio Villegas M.D. [address] [place] [phone] Atrial Fibrillation Paroxysmal (HCC) in [facility] [address] [place] [phone] Social History Tobacco Use Types [...] do you attend temple or Never 2018 adventist services? Do you [...] documented as of this encounter Care Teams Sandblaster Paint Sprayer Relationship Specialty Start Date End Date Elsewhere, Pcp PCP - General Internal Medicine 07/27/18 documented as of this encounter
--- OUTSIDE RECORDS SUMMARY | 2022-02-06 06:50 | XMS_ITS | Encounter Summary ---
:1955 Author Organization [facility] Address [address] [place] [address] Care Team Providers Name Role Phone Elsewhere, Pcp Primary Care Provider Unavailable Reason for Referral Outpatient (Routine) - Closed Specialty Diagnoses / Procedures Referred By Referred To Contact Contact Cardiovascular Diseases / Diagnoses Flutter Atrial (HCC) Atrial Fibrillation Paroxysmal (HCC) Tucker Rutherford [facility] Cardiovascular Disease P.A.-C. [address] [place] [address] Referral ID Status Reason Start Date Expiration Date Visits Requ ested Visits Authorized [id number] Closed 04/21/2019 04/20/2020 1 1 ONENT ASSEMBLER MRI/CAT/PET Scan (Routine) - Closed Specialty Diagnoses / Procedures Referred By Contact Refer red To Contact Radiology Diagnoses Flutter Atrial (HCC) Atrial Fibrillation Paroxysmal (HCC) Tucker Rutherford P.A.-Kadeem [facility] Procedures CT Cardiac Angiogram Pulmonary Veins with IV [address] [place] [address] Referral ID Status Reason Start Date Expiration Date Visits Requ ested Visits Authorized [id number] Closed 04/21/2019 04/20/2020 1 1 ONENT ASSEMBLER Outpatient (Routine) - Closed Specialty Diagnoses / Procedures Referred By Contact Refer red To Contact Diagnoses Flutter Atrial (HCC) Atrial Fibrillation Paroxysmal (HCC) Tucker Rutherford P.A.-C. [facility] Procedures ECG 12 Lead [address] [place], [place] [address] Referral ID Status Reason Start Date Expiration Date Visits Requ ested Visits Authorized [id number] Closed 04/21/2019 04/20/2020 1 1 ONENT ASSEMBLER Outpatient (Routine) - Closed Specialty Diagnoses / Procedures Referred By Contact Refer red To Contact Diagnoses Flutter Atrial (HCC) Atrial Fibrillation Paroxysmal (HCC) Tucker Rutherford P.A.-C. [facility] Procedures ECG Heart rhythm monitor (Holter) [address] [place], [place] [address] Referral ID Status Reason Start Date Expiration Date Visits Requ ested Visits Authorized [id number] Closed 04/21/2019 04/20/2020 1 1 ONENT ASSEMBLER Outpatient (Routine) - Closed Specialty Diagnoses / Procedures Referred By Contact Refer red To Contact Diagnoses Flutter Atrial (HCC) Atrial Fibrillation Paroxysmal (HCC) Tucker Rutherford P.A.-C. [facility] Procedures Echo Transthoracic (TTE) [address] [place], [place] [address] Referral ID Status Reason Start Date Expiration Date Visits Requ ested Visits Authorized [id number] Closed 04/21/2019 04/20/2020 1 1 ONENT ASSEMBLER Encounter Details Date Type Department Care Team Description 04/19/2019 - Hospital Encounter [facility]ha, Flutter A trial (HCC) (Primary Dx); 04/21/2019 [facility], Fibrillation Atrial (HCC); [facility] Atrial Fibrillation Paroxysmal (HCC) [facility], [address] [facility] Fourth Floor [place], [place] [address] [facility] [address] [place], [place] [phone] [address] (Work) [phone] Social History Tobacco Use Types Packs/Day Years [...] do you attend mandaen or Never 2018 bah[employer] services? Do you [...] Comments Blood Pressure 137/84 04/21/2019 8:30 AM COMPONENT ASSEMBLER Pulse 78 04/21/2019 8:30 AM COMPONENT ASSEMBLER Temperature 37.5 ??C (99.5 ??F) 04/21/2019 8:15 AM COMPONENT ASSEMBLER Respiratory Rate 22 04/21/2019 11:15 AM COMPONENT ASSEMBLER Oxygen Saturation 91% 04/21/2019 8:30 AM COMPONENT ASSEMBLER Inhaled Oxygen Concentration - - Weight 98.3 kg (216 lb 11.4 oz) 04/21/2019 3:00 AM COMPONENT ASSEMBLER Height 165.6 cm (5' 5.2) 04/19/2019 8:35 AM COMPONENT ASSEMBLER Body Mass Index 35.85 04/19/2019 8:35 AM COMPONENT ASSEMBLER documented in this encounter Discharge Summaries Tucker Rutherford P.A.-C. - 04/21/2019 10:04 AM CST Images from the original note were not included. DISCHARGE SUMMARY BRIEF OVERVIEW Discharge Provider: Marla Yeager M.B.BEdilmaSEdilma Primary Care Providers: Elsewhere, Pcp (General) [address] [facility] [address] Primary Care Provider Phone Number: None Primary [...] HOSPITAL COURSE Iris Metcalf was discharged from [facility] following an ablation performed by Dr. [...] will occur in approximately 3 months at [facility] in Heart Rhythm Services. Testing at that time will include a 24 hr Holter monitor, ECG, echocardiogram, and cardiac Ct. Patient was also instructed to follow up with Primary Care locally in the next 7-10 days for post hospital follow up. Discharge instructions were provided to the patient and caregiver(s). Juan J Rutherford P.A.-C. ONENT ASSEMBLER documented in this encounter Discharge Instructions Discharge InstructionsHiTucker fish P.A.-C. - 04/21/2019 11:05 AM COMPONENT ASSEMBLER Hospital Problems as of 04/21/2019 1. * [...] 4:00 p.m., contact the Electrophysiology Service at [phone]. For questions occurring after business hours, on weekends, nights, or holidays call [phone] and ask for Electrophysiology Nuclear Powerplant Mechanic Helper. General Follow-Up: You should follow up locally with your primary care provider in approximately 2 weeks for post hospitalization follow-up. Take a copy of the dismissal summary from [facility] to your provider. [facility] Follow-Up: A follow-up appointment will be scheduled for you in 3 months in the Heart Rhythm Center or Cardiovascular Exam Room. You will be contacted by [facility] to set up the follow up. Tests will include the following: electrocardiogram, 24-hour Holter monitor, transthoracic echocardiogram, and CT scan of heart. Our appointment coordinators will be contacting you. If you have not been notified about your appointment, please contact the electrophysiology hr coordinator at . Anticoagulation: Anticoagulation with Coumadin [...] avoid/skip your follow-up appointments, they are important! ONENT ASSEMBLER AttachmentsThe following attachments cannot be sent through Care Everywhere. Acetaminophen (By mouth) (Martiniquais)Flecainide (By mouth) (Martiniquais)Omeprazole (By mouth) (Martiniquais)documented in this encounter Medications at Time of [...] and Lissette Breen Pharm.D., R.Ph. Contact Pager [phone] with any questions about this note. ONENT ASSEMBLER Tucker Rutherford P.A.-C. - 04/20/2019 11:26 AM [...] Clinical Cardiac Electrophysiology Fellow 04/20/2019 8:21 AM COMPONENT ASSEMBLER ONENT ASSEMBLER Aria Houser APRN, C.N.P., M.S.N. - 04/19/2019 [...] the hospital for monitoring while on flecainide. ONENT ASSEMBLER Jayda Whitehead, Pharm.D., R.Ph. - 04/19/2019 4:01 [...] and Jayda Haddad Pharm.D., R.Ph. Contact Pager [phone] with any questions about this note. ONENT ASSEMBLER documented in this encounter Procedure Notes Porfirio [...] BLOOD LOSS Estimated Blood Loss: 1-75 ml ONENT ASSEMBLER documented in this encounter Consult Notes Flores Romeo R.N. - 04/21/2019 9:05 AM CSTAssociated Order(s): IP CONSULT TO CARE MANAGEMENT Discharge Planning Assessment SUBJECTIVE Referral Data Referral Source: Nurse Referral Name: Valerie Jaquez R.N. Referral Reason: Discharge Planning Discharge Planning: Other (Comment)([facility]) Who was present during the interview?: Patient Dental Hygiene Instructor Services Used: No Patient Information Primary Caregiver: Other (Comment)(staff at facility) Primary Nurse Name/Number: Bernie Diet/Texture: By mouth Legal Information Legal Decision Maker: Self Advance Directives: Power of Aviation Safety Officer for health care, Power of Aviation Safety Officer for finance Advance Directives Status: Not Activated Power of Aviation Safety Officer for Health Care Agent Name: Ramin Metcalf Power of Aviation Safety Officer for Health Agent Contact Info: [phone] Power of Aviation Safety Officer for Finance Agent Name: Ramin Metcalf Power of Aviation Safety Officer for Finance Agent Contact Info: [phone] Caregiver Information Caregiver Name: [facility] Caregiver Relationship: paid staff Caregiver Caregiver Address: [address] [place] [address] Services Requested Discharge Planning to Facility OBJECTIVE [...] Communication: Can write, Talks, Understands speaking, Understands Martiniquais Environmental Supports Home Environment: Group Home Care Facility Name: [facility] Anticipated Modifications to the Patient's Home: None [...] Residence: Other (Comment) Type of Residence 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 I reviewed my role of Calker. Patient reviewed her current hospitalization and appears to have understanding, insightand competence of her needs. Patient reviewed her home environment and support system; reviewing that her primary healthcare science specialist - facility staff will be able to provide care to patient post discharge. Patient reports that she feels safe and supported to return [facility]. ?? Patient stated that she has two sons that are her support system. Patient hopes to transition to an assisted living center. Plan: Patient appears to have understanding, insight and competence into patient needs and is appropriately planning for discharge at this time. I recommended the following: none at this time 1. Patient plans to return to [facility] once medically stable for DC 2. Resources given:None 3. CM will continue to follow for any needs that arise. 4. Transportation home will be provided by [place] [phone]. 5. Reconnections needed [facility]. Patient to return to: Destination - Selection Complete Service Provider Request Status Selected Services Address Phone Number Fax Number [facility] Selected Transitional Care Unit [address] [facility] [address] [phone] Contact: Intake Patient has a MA bedhold. Facility prefers patient return by 1300. Transportation to be provided by [place] at 1130. Please contact Case Management if [...] arise. Signed by: Flores Romeo R.N. 04/21/2019 ONENT ASSEMBLER documented in this encounter Nursing Notes Talya Duffy R.N. - 04/21/2019 10:55 AM CST Pt d/c to [facility]. Facility AVS, discharge summary and MAR report printed, discussed andhanded to pt to relay to SNF. Nurse to nurse report done. Education complete. Teach-back acquired. All questions answered. Transport arranged. Escort requested. ONENT ASSEMBLER Mary Cortés, R.R.T., L.R.T. - 04/20/2019 12:42 AM CST Patient is a 64 y.o. female admitted on 04/19/2019 Alert Information: Plan of Care: Patient refused PAP therapy tonight. RT will continue to offer assistance. Principal Problem Atrial Fibrillation Paroxysmal (HCC) Oxygen Therapy $Delivery Method: Room air Arterial Line 04/19/19 Right Radial (Active) Placement Date/Time: 04/19/19 (c) 8558 Procedural Pause Completed: Yes Hand Hygiene Performed Prior to Insertion: Yes Site Prep: Chlorhexidine (Preferred) Sterile Barriers Used : Cap;Gloves;Gown;Large drape;Mask (Clinician);Mask (All others in ro... ONENT ASSEMBLER Naren Michaels R.N. - 04/19/2019 9:35 PM CST Shift Goals: Clinical Goals for the Shift: pt remain safe Identify possible barriers to meeting goals/advancing plan of care: pt up with assist and walker End of Shift Summary: met ONENT ASSEMBLER Naren Peng R.R.T., L.R.T. - 04/19/2019 5:29 PM CST Assist with CPAP ONENT ASSEMBLER Robbie Emerson R.N. - 04/19/2019 8:38 AM CST Patient was admitted for ablation/ electrophysiology procedure. Reviewed HPI, preliminary testing and confirmed medications taken this morning. The last dose of Warfarin taken was 04/19/2019. Pain management strategies post-procedure were discussed. All questions were answered. Patient would like family member Ramin updated with procedural updates. The phone number to reach this family member is [phone]. ONENT ASSEMBLER documented in this encounter Plan of Treatment Scheduled Referrals Name Type Priority Associated Diagnoses Order S [facility] Cardiovascular Disease Outpatient Routine Flutter A trial (HCC) Expected: - Heart rhythm consult Referral Atrial Fibrillatio n 07/21/2019 (clinic) Paroxysmal (HCC) (Approximat e), Expires: 04/21/2022 documented as of this encounter Procedures Procedure Name Priority Date/Time Associated Comments Diagnosis ECG Routine 04/21/2019 Results for 10:47 AM COMPONENT ASSEMBLER this procedure are in the results section. PROTHROMBIN TIME (PT), Routine 04/21/2019 6:15 Re sults for P AM COMPONENT ASSEMBLER this procedure are in the results section. CBC WITH DIFFERENTIAL, Routine 04/21/2019 6:15 Re sults for B AM COMPONENT ASSEMBLER this procedure are in the results section. BUN (BLOOD UREA Routine 04/21/2019 6:15 Results f or NITROGEN), S/P AM COMPONENT ASSEMBLER this procedur e are in the results section. POTASSIUM, S/P Routine 04/21/2019 6:15 Results fo r AM COMPONENT ASSEMBLER this procedure are in the results section. MAGNESIUM, S Routine 04/21/2019 6:15 Results for AM COMPONENT ASSEMBLER this procedure are in the results section. CREATININE WITH EGFR, Routine 04/21/2019 6:15 Res ults for S/P AM COMPONENT ASSEMBLER this procedure are in the results section. ECG Routine 04/20/2019 Results for 10:44 PM COMPONENT ASSEMBLER this procedure are in the results section. DX CHEST AP OR PA AND RAD - Timed 04/20/2019 8:18 Res ults for LATERAL 2 VIEWS (for specific AM COMPONENT ASSEMBLER this proced ure dates/times) are in the results section. ECG Routine 04/20/2019 6:42 Results for AM COMPONENT ASSEMBLER this procedure are in the results section. PROTHROMBIN TIME (PT), Routine 04/20/2019 6:34 Re sults for P AM COMPONENT ASSEMBLER this procedure are in the results section. CBC WITH DIFFERENTIAL, Routine 04/20/2019 6:34 Re sults for B AM COMPONENT ASSEMBLER this procedure are in the results section. BUN (BLOOD UREA Routine 04/20/2019 6:34 Results f or NITROGEN), S/P AM COMPONENT ASSEMBLER this procedur e are in the results section. POTASSIUM, S/P Routine 04/20/2019 6:34 Results fo r AM COMPONENT ASSEMBLER this procedure are in the results section. MAGNESIUM, S Routine 04/20/2019 6:34 Results for AM COMPONENT ASSEMBLER this procedure are in the results section. CREATININE WITH EGFR, Routine 04/20/2019 6:34 Res ults for S/P AM COMPONENT ASSEMBLER this procedure are in the results section. GLUCOSE POCT, B Routine 04/19/2019 4:12 Results f or PM COMPONENT ASSEMBLER this procedure are in the results section. POTASSIUM, S/P STAT 04/19/2019 3:42 Results fo r PM COMPONENT ASSEMBLER this procedure are in the results section. MAGNESIUM, S STAT 04/19/2019 3:42 Results for PM COMPONENT ASSEMBLER this procedure are in the results section. PROTHROMBIN TIME (PT), STAT 04/19/2019 2:53 Re sults for P PM COMPONENT ASSEMBLER this procedure are in the results section. ABLATION - ATRIAL Routine 04/19/2019 2:26 Atrial Results for FLUTTER - RIGHT PM COMPONENT ASSEMBLER Fibrillation (HCC) this p rocedure are in the results section. ABLATION - WACA Routine 04/19/2019 2:26 Atrial Results f or PM COMPONENT ASSEMBLER Fibrillation (HCC) this proc edure are in the results section. HEART RHYTHM PROCEDURE Routine 04/19/2019 2:26 Atrial Re sults for PM COMPONENT ASSEMBLER Fibrillation (HCC) this proc edure are in the results section. HEART RHYTHM PROCEDURE Routine 04/19/2019 2:26 Atrial Re sults for PM COMPONENT ASSEMBLER Fibrillation (HCC) this proc edure are in the results section. HEART RHYTHM PROCEDURE Routine 04/19/2019 2:26 Atrial Re sults for PM COMPONENT ASSEMBLER Fibrillation (HCC) this proc edure are in the results section. ABLATION PVI Routine 04/19/2019 2:26 Atrial Results for PM COMPONENT ASSEMBLER Fibrillation (HCC) this proc edure are in the results section. ABG AND LYTES EG6+, Routine 04/19/2019 2:10 Resul ts for POCT, B PM COMPONENT ASSEMBLER this procedure are in the results section. ACT, POCT, B Routine 04/19/2019 2:03 Results for PM COMPONENT ASSEMBLER this procedure are in the results section. GLUCOSE POCT, B Routine 04/19/2019 2:02 Results f or PM COMPONENT ASSEMBLER this procedure are in the results section. ACT, POCT, B Routine 04/19/2019 1:19 Results for PM COMPONENT ASSEMBLER this procedure are in the results section. ABG AND LYTES EG6+, Routine 04/19/2019 Results for POCT, B 12:58 PM COMPONENT ASSEMBLER this procedure are in the results section. ACT, POCT, B Routine 04/19/2019 Results for 12:48 PM COMPONENT ASSEMBLER this procedure are in the results section. GLUCOSE POCT, B Routine 04/19/2019 Results for 12:47 PM COMPONENT ASSEMBLER this procedure are in the results section. ACT, POCT, B Routine 04/19/2019 Results for 12:19 PM COMPONENT ASSEMBLER this procedure are in the results section. PROTHROMBIN TIME (PT), STAT 04/19/2019 Resul ts for P 12:16 PM COMPONENT ASSEMBLER this procedure are in the results section. ACT, POCT, B Routine 04/19/2019 Results for 11:55 AM COMPONENT ASSEMBLER this procedure are in the results section. ACT, POCT, B Routine 04/19/2019 Results for 11:27 AM COMPONENT ASSEMBLER this procedure are in the results section. ACT, POCT, B Routine 04/19/2019 Results for 11:05 AM COMPONENT ASSEMBLER this procedure are in the results section. PROTHROMBIN TIME (PT), STAT 04/19/2019 Resul ts for P 10:46 AM COMPONENT ASSEMBLER this procedure are in the results section. CBC WITH DIFFERENTIAL, STAT 04/19/2019 Resul ts for B 10:46 AM COMPONENT ASSEMBLER this procedure are in the results section. BASIC METABOLIC PANEL, STAT 04/19/2019 Resul ts for S/P 10:46 AM COMPONENT ASSEMBLER this procedure are in the results section. TYPE AND SCREEN STAT 04/19/2019 Results for 10:45 AM COMPONENT ASSEMBLER this procedure are in the results section. GLUCOSE POCT, B Routine 04/19/2019 Results for 10:44 AM COMPONENT ASSEMBLER this procedure are in the results section. ACT, POCT, B Routine 04/19/2019 Results for 10:41 AM COMPONENT ASSEMBLER this procedure are in the results section. ECHO - INTRAPROCEDURAL Routine 04/19/2019 8:52 Re sults for IMAGES ONLY AM COMPONENT ASSEMBLER this procedure are in the results section. INR, POCT, B Routine 04/19/2019 8:37 Results for AM COMPONENT ASSEMBLER this procedure are in the results section. GLUCOSE POCT, B Routine 04/19/2019 8:37 Results f or AM COMPONENT ASSEMBLER this procedure are in the results section. [...] layer. For the complete report, see the mAPPn Documents. Narrative 08/19/2019 1:52 PM CDT For the complete report, see the mAPPn Documents. Final Impressions 1. Echocardiogram performed per [...] ECHO PROCEDURES HOLTER MONITOR - IN CLINIC DEICER REPAIRER (08/18/2019 10:48 AM CDT) iOculi Method Time Signature SVE Max Per HOLTER [...] 54 bpm HOLTER SENTINEL VE Max Per [id number] HOLTER Hour Time SENTINEL SVE Percent 0 percent HOLTER Beats SENTINEL VE Max Per 1 count HOLTER Hour SENTINEL Max Heart Rate [id number] HOLTER Time SENTINEL Specimen (Source) Anatomical Collection Method Collection Time Re ceived Time Location / / Volume Laterality 08/18/2019 10:49 AM CDT Narrative This result has an attachment that is no t available. Tucker Rutherford P.A.-C. CV CARDIAC SERVICES PROCEDUR ES Performing Organization Address City/State/ZIP Code Phon e Number HOLTER SENTINEL HOLTER [place] NA ECG 12 Lead (08/18/2019 10:23 AM CDT) iOculi Method Time Signature Ventricular 66 BPM MUSE Rate ECG/Min RI Interval 202 ms MUSE QRSD Interval 118 ms MUSE QT Interval 480 ms MUSE QTC Interval 503 ms MUSE P [place] 73 degrees MUSE R [place] 94 degrees MUSE T Wave [place] 47 degrees MUSE CODED DIAGNOSIS MUSE Semi-Urgent [...] thoracic spine. Cholecystectomy clips se en on oyster preparer images. GUIDELINES FOR FOLLOW-UP of newly detect [...] thoracic spine. Cholecystectomy clips se en on oyster preparer images. GUIDELINES FOR FOLLOW-UP of newly detect [...] PROCEDURES ECG 12 Lead (04/21/2019 10:47 AM COMPONENT ASSEMBLER) athologist Signature Ventricular Rate 73 BPM MUSE ECG/Min RI Interval 204 ms MUSE QRSD Interval 110 ms MUSE QT Interval 414 ms MUSE QTC Interval 456 ms MUSE P [place] 69 degrees MUSE R [place] 104 degrees MUSE T Wave [place] 27 degrees MUSE Specimen Anatomical Collection Method Collection Time Receive d Time (Source) Location / / Volume Laterality 04/21/2019 10:47 04/21/2019 AM COMPONENT ASSEMBLER 10:55 AM COMPONENT ASSEMBLER Impressions MUSE - 04/21/2019 10:55 AM COMPONENT ASSEMBLER Normal sinus rhythm with 1st degree A-V [...] MUSE MUSE NA Magnesium (04/21/2019 6:15 AM COMPONENT ASSEMBLER) athologist Signature Magnesium, S 2.0 1.7 - 2.3 04/21/2019 DTL mg/dL 7:39 AM COMPONENT ASSEMBLER Specimen Anatomical Collection Method Collection Time Receive d Time (Source) Location / / Volume Laterality Blood (Blood, 04/21/2019 6:15 AM 04/21/19 20 6:39 Venous) COMPONENT ASSEMBLER AM COMPONENT ASSEMBLER Tucker Rutherford P.A.-C. LAB BLOOD ADD-ON Performing Organization Address [facility] Phon e Number [facility] - [address] [place] [address] [address] [place] [address] [facility] [address] [facility] (ABNORMAL) Prothrombin Time (PT) (04/21/2019 6:15 AM COMPONENT ASSEMBLER) [facility] Method Time Signature Prothrombin 28.6 (H) 9.4 - 12.5 04/21/2019 DTL Time, P sec 6:54 AM COMPONENT ASSEMBLER INR 2.6 0.9 - 1.1 04/21/2019 DTL 6:54 AM COMPONENT ASSEMBLER Comment: ----ADDITIONAL INFORMATION---- Standard intensity warfarin therapeutic range: 2.0 to 3.0 ?? High intensity warfarin therapeutic rang e: 2.5 to 3.5 Specimen Anatomical Collection Method Collection Time Receive d Time (Source) Location / / Volume Laterality Blood (Blood, 04/21/2019 6:15 AM 04/21/19 20 6:39 Venous) COMPONENT ASSEMBLER AM COMPONENT ASSEMBLER Aria Houser APRN, C.N.P., M.S.N. LAB BLOOD ADD-ON Performing Organization Address City/[facility] Phon e Number [facility] - [address] [place] [address] [address] [place] [address] Laboratories-[address] (ABNORMAL) CBC with Differential, Blood (04/21/2019 6:15 AM COMPONENT ASSEMBLER) [facility] Method Time Signature Hemoglobin 12.1 11.6 - 04/21/2019 DTL 15.0 g/dL 6:45 AM COMPONENT ASSEMBLER Hematocrit 38.0 35.5 - 04/21/2019 DTL 44.9 % 6:45 AM COMPONENT ASSEMBLER Erythrocytes 4.03 3.92 - 04/21/2019 DTL 5.13 6:45 AM COMPONENT ASSEMBLER x10(12)/L MCV 94.3 78.2 - 04/21/2019 DTL 97.9 fL 6:45 AM COMPONENT ASSEMBLER RBC Distrib Width 12.3 12.2 - 04/21/2019 DTL 16.1 % 6:45 AM COMPONENT ASSEMBLER Platelet Count 296 157 - 371 04/21/2019 DTL x10(9)/L 6:45 AM COMPONENT ASSEMBLER Leukocytes 11.7 (H) 3.4 - 9.6 04/21/2019 DTL x10(9)/L 6:45 AM COMPONENT ASSEMBLER Neutrophils 8.57 (H) 1.56 - 04/21/2019 DTL 6.45 6:45 AM COMPONENT ASSEMBLER x10(9)/L Lymphocytes 2.03 0.95 - 04/21/2019 DTL 3.07 6:45 AM COMPONENT ASSEMBLER x10(9)/L Monocytes 0.91 (H) 0.26 - 04/21/2019 DTL 0.81 6:45 AM COMPONENT ASSEMBLER x10(9)/L Eosinophils 0.14 0.03 - 04/21/2019 DTL 0.48 6:45 AM COMPONENT ASSEMBLER x10(9)/L Basophils 0.08 0.01 - 04/21/2019 DTL 0.08 6:45 AM COMPONENT ASSEMBLER x10(9)/L Specimen Anatomical Collection Method Collection Time Receive d Time (Source) Location / / Volume Laterality Blood (Blood, 04/21/2019 6:15 AM 04/21/19 20 6:40 Venous) COMPONENT ASSEMBLER AM COMPONENT ASSEMBLER Marla Pham LAB BLOOD ADD-ON Performing Organization Address City/State/ZIP Code Phon e Number [facility] - [address] [place], [place] [address] [place] [address] [facility] [address] Creatinine with Estimated GFR (04/21/2019 6:15 AM COMPONENT ASSEMBLER) P athologist Signature Creatinine 0.85 0.59 - 04/21/2019 DTL 1.04 mg/dL 7:39 AM COMPONENT ASSEMBLER eGFR-Non 74 >=60 04/21/2019 DTL Black/ mL/min/BSA 7:39 AM COMPONENT ASSEMBLER Cymro Comment: ----ADDITIONAL INFORMATION---- Estimated GFR calculated using the 2009 CKD_EPI creatinine equation. eGFR-Black/ 85 >=60 mL/min/BSA 2019 7:39 AM COMPONENT ASSEMBLER DTL Comment: ----ADDITIONAL INFORMATION---- Estimated GFR calculated using the 2009 CKD_EPI creatinine equation. Specimen Anatomical Collection Method Collection Time Receive d Time (Source) Location / / Volume Laterality Blood (Blood, 04/21/2019 6:15 AM 04/21/19 20 6:39 Venous) COMPONENT ASSEMBLER AM COMPONENT ASSEMBLER Marla RendonSEdilma LAB BLOOD ADD-ON Performing Organization Address City/State/ZIP Code Phon e Number [facility] - [address] BUN (Blood Urea Nitrogen) (04/21/2019 6:15 AM COMPONENT ASSEMBLER) P athologist Signature BUN (Blood Urea 13 6 - 21 04/21/2019 DTL Nitrogen), S mg/dL 7:39 AM COMPONENT ASSEMBLER Specimen Anatomical Collection Method Collection Time Receive d Time (Source) Location / / Volume Laterality Blood (Blood, 04/21/2019 6:15 AM 04/21/19 20 6:39 Venous) COMPONENT ASSEMBLER AM COMPONENT ASSEMBLER Marla RendonSEdilma LAB BLOOD ADD-ON Performing Organization Address City/State/ZIP Code Phon e Number [facility] - [address] Potassium (04/21/2019 6:15 AM COMPONENT ASSEMBLER) P athologist Signature Potassium, S 5.0 3.6 - 5.2 04/21/2019 DTL mmol/L 7:39 AM COMPONENT ASSEMBLER Specimen Anatomical Collection Method Collection Time Receive d Time (Source) Location / / Volume Laterality Blood (Blood, 04/21/2019 6:15 AM 04/21/19 20 6:39 Venous) COMPONENT ASSEMBLER AM COMPONENT ASSEMBLER Marla RendonSEdilma LAB BLOOD ADD-ON Performing Organization Address City/State/ZIP Code Phon e Number [facility] - [address] ECG 12 Lead (04/20/2019 10:44 PM COMPONENT ASSEMBLER) P athologist Signature Ventricular Rate 82 BPM MUSE ECG/Min RI Interval 198 ms MUSE QRSD Interval 106 ms MUSE QT Interval 374 ms MUSE QTC Interval 436 ms MUSE P [place] 67 degrees MUSE R [place] 89 degrees MUSE T Wave [place] -4 degrees MUSE Specimen Anatomical Collection Method Collection Time Receive d Time (Source) Location / / Volume Laterality 04/20/2019 10:44 04/21/2019 5:08 PM COMPONENT ASSEMBLER AM COMPONENT ASSEMBLER Impressions MUSE - 04/21/2019 5:08 AM COMPONENT ASSEMBLER Normal sinus rhythm ST and T wave [...] and Lateral 2 Views (04/20/2019 8:18 AM COMPONENT ASSEMBLER) Anatomical Region Laterality Modality Chest, Thoracic RST LOS, Thoracic ARZ LOS, Thoracic N/A Digital Radiography FLA LOS Specimen (Source) Anatomical Collection Method Collection Time Re ceived Time Location / / Volume Laterality 04/20/2019 8:19 AM COMPONENT ASSEMBLER Impressions 04/20/2019 8:37 AM COMPONENT ASSEMBLER Since 06/29/2018, decreased lung volumes. No focal consolidation, or pneumothorax. Possible tiny left pleu ral effusion with associated atelectasis. Mild pulmonary vascular con gestion. New cardiomegaly. Aortic calcification. Surgical clips right uppe r quadrant. Narrative 04/20/2019 8:37 AM COMPONENT ASSEMBLER EXAM: ??DX CHEST AP OR PA AND [...] DURES ECG 12 Lead (04/20/2019 6:42 AM COMPONENT ASSEMBLER) [facility] [employer] Method Time Signature Ventricular 75 BPM MUSE Rate ECG/Min RI Interval 186 ms MUSE QRSD Interval 102 ms MUSE QT Interval 388 ms MUSE QTC Interval 433 ms MUSE P [place] 72 degrees MUSE R [place] 97 degrees MUSE T Wave [place] -127 degrees MUSE CODED Atrial MUSE DIAGNOSIS fibrillation Specimen Anatomical Collection Method Collection Time Receive d Time (Source) Location / / Volume Laterality 04/20/2019 6:42 AM 0 8:54 COMPONENT ASSEMBLER AM COMPONENT ASSEMBLER Impressions MUSE - 04/20/2019 8:54 AM COMPONENT ASSEMBLER Normal sinus rhythm Rightward axis ST and [...] (ABNORMAL) Prothrombin Time (PT) (04/20/2019 6:34 AM COMPONENT ASSEMBLER) [facility] [employer] Method Time Signature Prothrombin 23.1 (H) 9.4 - 12.5 04/20/2019 DTL Time, P sec 7:26 AM COMPONENT ASSEMBLER INR 2.1 0.9 - 1.1 04/20/2019 DTL 7:26 AM COMPONENT ASSEMBLER Comment: ----ADDITIONAL INFORMATION---- Standard intensity warfarin therapeutic range: 2.0 to 3.0 ?? High intensity warfarin therapeutic rang e: 2.5 to 3.5 Specimen Anatomical Collection Method Collection Time Receive d Time (Source) Location / / Volume Laterality Blood (Blood, 04/20/2019 6:34 AM 04/20/19 20 7:04 Venous) COMPONENT ASSEMBLER AM COMPONENT ASSEMBLER Aria Houser APRN, C.N.P., M.S.N. LAB BLOOD ADD-ON Performing Organization Address City/State/ZIP Code Phon e Number [facility] - [address] [place], [place] [address] [place] [address] [facility] [address] (ABNORMAL) CBC with Differential, Blood (04/20/2019 6:34 AM COMPONENT ASSEMBLER) [facility] gist Method Time Signature Hemoglobin 12.7 11.6 - 04/20/2019 DTL 15.0 g/dL 7:17 AM COMPONENT ASSEMBLER Hematocrit 39.4 35.5 - 04/20/2019 DTL 44.9 % 7:17 AM COMPONENT ASSEMBLER Erythrocytes 4.14 3.92 - 04/20/2019 DTL 5.13 7:17 AM COMPONENT ASSEMBLER x10(12)/L MCV 95.2 78.2 - 04/20/2019 DTL 97.9 fL 7:17 AM COMPONENT ASSEMBLER RBC Distrib Width 12.4 12.2 - 04/20/2019 DTL 16.1 % 7:17 AM COMPONENT ASSEMBLER Platelet Count 362 157 - 371 04/20/2019 DTL x10(9)/L 7:17 AM COMPONENT ASSEMBLER Leukocytes 12.0 (H) 3.4 - 9.6 04/20/2019 DTL x10(9)/L 7:17 AM COMPONENT ASSEMBLER Neutrophils 8.06 (H) 1.56 - 04/20/2019 DTL 6.45 7:17 AM COMPONENT ASSEMBLER x10(9)/L Lymphocytes 2.74 0.95 - 04/20/2019 DTL 3.07 7:17 AM COMPONENT ASSEMBLER x10(9)/L Monocytes 0.93 (H) 0.26 - 04/20/2019 DTL 0.81 7:17 AM COMPONENT ASSEMBLER x10(9)/L Eosinophils 0.17 0.03 - 04/20/2019 DTL 0.48 7:17 AM COMPONENT ASSEMBLER x10(9)/L Basophils 0.10 (H) 0.01 - 04/20/2019 DTL 0.08 7:17 AM COMPONENT ASSEMBLER x10(9)/L Specimen Anatomical Collection Method Collection Time Receive d Time (Source) Location / / Volume Laterality Blood (Blood, 04/20/2019 6:34 AM 04/20/19 20 7:04 Venous) COMPONENT ASSEMBLER AM COMPONENT ASSEMBLER Marla Pham LAB BLOOD ADD-ON Performing Organization Address City/[facility] Phon e Number [facility] - [address] [place], [place] [address] [place] [address] Creatinine with Estimated GFR (04/20/2019 6:34 AM COMPONENT ASSEMBLER) athologist Signature Creatinine 0.89 0.59 - 04/20/2019 DTL 1.04 mg/dL 8:15 AM COMPONENT ASSEMBLER eGFR-Non 70 >=60 04/20/2019 DTL Black/ mL/min/BSA 8:15 AM COMPONENT ASSEMBLER [employer] Comment: ----ADDITIONAL INFORMATION---- Estimated GFR calculated using the 2009 CKD_EPI creatinine equation. eGFR-Black/ 80 >=60 mL/min/BSA 2019 8:15 AM COMPONENT ASSEMBLER DTL Comment: ----ADDITIONAL INFORMATION---- Estimated GFR calculated using the 2009 CKD_EPI creatinine equation. Specimen Anatomical Collection Method Collection Time Receive d Time (Source) Location / / Volume Laterality Blood (Blood, 04/20/2019 6:34 AM 04/20/19 20 7:04 Venous) COMPONENT ASSEMBLER AM COMPONENT ASSEMBLER Marla RendonSEdilma LAB BLOOD ADD-ON Performing Organization Address City/State/[facility] Code Phon e Number [facility] - [address] [place], [place] [address] [place] [address] BUN (Blood Urea Nitrogen) (04/20/2019 6:34 AM COMPONENT ASSEMBLER) athologist Signature BUN (Blood Urea 13 6 - 21 04/20/2019 DTL Nitrogen), S mg/dL 8:15 AM COMPONENT ASSEMBLER Specimen Anatomical Collection Method Collection Time Receive d Time (Source) Location / / Volume Laterality Blood (Blood, 04/20/2019 6:34 AM 04/20/19 20 7:04 Venous) COMPONENT ASSEMBLER AM COMPONENT ASSEMBLER Marla RendonS. LAB BLOOD ADD-ON Performing Organization Address City/[facility]/ZIP Code Phon e Number [facility] - [address] Potassium (04/20/2019 6:34 AM COMPONENT ASSEMBLER) P athologist Signature Potassium, S 4.7 3.6 - 5.2 04/20/2019 DTL mmol/L 8:15 AM COMPONENT ASSEMBLER Specimen Anatomical Collection Method Collection Time Receive d Time (Source) Location / / Volume Laterality Blood (Blood, 04/20/2019 6:34 AM 04/20/19 20 7:04 Venous) COMPONENT ASSEMBLER AM COMPONENT ASSEMBLER Marla Lora.S. LAB BLOOD ADD-ON Performing Organization Address City/[facility]/ZIP Code Phon e Number [facility] - [address] Magnesium (04/20/2019 6:34 AM COMPONENT ASSEMBLER) P athologist Signature Magnesium, S 2.1 1.7 - 2.3 04/20/2019 DTL mg/dL 8:15 AM COMPONENT ASSEMBLER Specimen Anatomical Collection Method Collection Time Receive d Time (Source) Location / / Volume Laterality Blood (Blood, 04/20/2019 6:34 AM 04/20/19 20 7:04 Venous) COMPONENT ASSEMBLER AM COMPONENT ASSEMBLER Marla RendonS. LAB BLOOD ADD-ON Performing Organization Address City/State/ZIP Code Phon e Number [facility] - [address] (ABNORMAL) Glucose, POCT (04/19/2019 4:12 PM COMPONENT ASSEMBLER) Analysis Performed At Patho logist Time Signature Glucose, POCT, 230 (H) 70 - 140 04/19/2019 PCLX B mg/dL 4:19 PM COMPONENT ASSEMBLER Last Intake 3-4 hours 04/19/2019 PCLX 4:19 PM COMPONENT ASSEMBLER Specimen Anatomical Collection Method Collection Time Receive d Time (Source) Location / / Volume Laterality Blood 04/19/2019 4:12 PM 0 4:19 COMPONENT ASSEMBLER PM COMPONENT ASSEMBLER Unknown Provider LAB POCT ORDERABLES-MANUAL Performing Organization Address City/State/ZIP Code Phon e Number POC [facility] [address] [place] [address] PCLX [facility] [place] [address] Elizabeth POC [address] (ABNORMAL) Magnesium (04/19/2019 3:42 PM COMPONENT ASSEMBLER) P athologist Signature Magnesium, S 1.5 (L) 1.7 - 2.3 04/19/2019 DTL mg/dL 5:03 PM COMPONENT ASSEMBLER Specimen Anatomical Collection Method Collection Time Receive d Time (Source) Location / / Volume Laterality Blood (Blood, 04/19/2019 3:42 PM 04/19/19 20 4:28 Venous) COMPONENT ASSEMBLER PM COMPONENT ASSEMBLER Kadeem Soto APRNNMarcel., M.S.N. LAB BLOOD ADD-ON Performing Organization Address City/State/ZIP Code Phon e Number [facility] - [address] [place], [place] [address] [place] [address] [facility] [address] Potassium (04/19/2019 3:42 PM COMPONENT ASSEMBLER) P athologist Signature Potassium, P 3.8 3.6 - 5.2 04/19/2019 [facility] mmol/L 4:01 PM COMPONENT ASSEMBLER Specimen Anatomical Collection Method Collection Time Receive d Time (Source) Location / / Volume Laterality Blood (Blood, 04/19/2019 3:42 PM 04/19/19 20 3:49 Venous) COMPONENT ASSEMBLER PM COMPONENT ASSEMBLER Kadeem Soto APRNN.P., M.S.N. LAB BLOOD ADD-ON Performing Organization Address City/State/ZIP Code Phon e Number [facility] - [address] [place], [place] [address] [place] [address] [facility] [address] (ABNORMAL) Prothrombin Time (PT) (04/19/2019 2:53 PM COMPONENT ASSEMBLER) Patholo gist Method Time Signature Prothrombin 29.8 (H) 9.4 - 12.5 04/19/2019 [facility] Time, P sec 3:14 PM COMPONENT ASSEMBLER INR 2.7 0.9 - 1.1 04/19/2019 [facility] 3:14 PM COMPONENT ASSEMBLER Comment: ----ADDITIONAL INFORMATION---- Standard intensity warfarin therapeutic range: 2.0 to 3.0 ?? High intensity warfarin therapeutic rang e: 2.5 to 3.5 Specimen Anatomical Collection Method Collection Time Receive d Time (Source) Location / / Volume Laterality Blood (Blood, 04/19/2019 2:53 PM 04/19/19 20 3:02 Venous) COMPONENT ASSEMBLER PM COMPONENT ASSEMBLER Tucker Rutherford P.A.-C. LAB BLOOD ADD-ON Performing Organization Address City/State/ZIP Code Phon e Number [facility] - [address] [place] [address] [place] [address] [facility] [address] ABLATION PVI, CARTO, ULTRASOUND GUIDANCE FOR VASCULAR ACCESS, INTRACARDIAC ECHOCARDIOGRAM, ABLATION - WACA, ABLATION - ATRIAL FLUTTER - RIGHT (04/19/2019 2:26 PM COMPONENT ASSEMBLER) Anatomical Region Laterality Modality X-Ray Angiography Specimen (Source) Anatomical Collection Method Collection Time Re ceived Time Location / / Volume Laterality 04/19/2019 10:13 AM COMPONENT ASSEMBLER Narrative 04/20/2019 2:47 PM COMPONENT ASSEMBLER For the complete report, see the Order-L [...] ABG and Elian POCT (04/19/2019 2:10 PM COMPONENT ASSEMBLER) P athologist Signature Sample Site, Artline 04/19/2019 PCLX POCT 2:16 PM COMPONENT ASSEMBLER Comment: ----ADDITIONAL INFORMATION---- Performed at the Point of Care pH, POCT 7.42 7.35 - 7.45 04/19/2019 2:16 PM COMPONENT ASSEMBLER PCLX Comment: ----ADDITIONAL INFORMATION---- Performed at the Point of Care pCO2, POCT 44 32 - 45 mm Hg 04/19/2019 2:16 PM COMPONENT ASSEMBLER PC LX Comment: ----ADDITIONAL INFORMATION---- Performed at the Point of Care pO2, POCT 455 (H) 83 - 108 mm Hg 04/19/2019 2:16 PM COMPONENT ASSEMBLER PC LX Comment: ----ADDITIONAL INFORMATION---- Performed at the Point of Care Base, POCT 4 (H) -2 - 3 mmol/L 04/19/2019 2:16 PM COMPONENT ASSEMBLER PC LX Comment: ----ADDITIONAL INFORMATION---- Performed at the Point of Care HCO3, POCT 29 (H) 22 - 26 mmol/L 04/19/2019 2:16 PM COMPONENT ASSEMBLER P CLX Comment: ----ADDITIONAL INFORMATION---- Performed at the Point of Care Sodium, POCT, B 137 135 - 145 mmol/L 04/19/2019 2:16 P M COMPONENT ASSEMBLER PCLX Comment: ----ADDITIONAL INFORMATION---- Performed at the Point of Care Potassium, POCT, B 3.0 (L) 3.6 - 5.2 mmol/L 04/19/2019 2:1 6 PM COMPONENT ASSEMBLER PCLX Comment: ----ADDITIONAL INFORMATION---- Performed at the Point of Care Hematocrit, POCT, B 36.0 35.5 - 44.9 % 04/19/2019 2:16 PM COMPONENT ASSEMBLER PCLX Comment: ----ADDITIONAL INFORMATION---- Performed at the Point of Care Specimen Anatomical Collection Method Collection Time Receive d Time (Source) Location / / Volume Laterality Blood 04/19/2019 2:10 PM 0 2:16 COMPONENT ASSEMBLER PM COMPONENT ASSEMBLER Unknown Provider LAB POCT ORDERABLES - DEVICE Performing Organization Address City/State/ZIP Code Phon e Number POC [facility] [address] [place] [address] [place] [address] Krista POC [address] (ABNORMAL) ACT (Activated Clotting Time), POCT (04/19/2019 2:03 PM COMPONENT ASSEMBLER) athologist Signature Activated 167 (H) 84 - 139 04/19/2019 PCSM Clotting Time, sec 2:16 PM COMPONENT ASSEMBLER POCT Specimen Anatomical Collection Method Collection Time Receive d Time (Source) Location / / Volume Laterality Blood 04/19/2019 2:03 PM 0 2:16 COMPONENT ASSEMBLER PM COMPONENT ASSEMBLER Unknown Provider LAB POCT ORDERABLES - DEVICE Performing Organization Address City/[facility]/ZIP [facility] Phon e Number [facility] [address] [place], [place] [address] [place] [address] Elizabeth POC [address] (ABNORMAL) Glucose, POCT (04/19/2019 2:02 PM COMPONENT ASSEMBLER) athologist Signature Glucose, POCT, 193 (H) 70 - 140 04/19/2019 PCLX B mg/dL 2:04 PM COMPONENT ASSEMBLER Specimen Anatomical Collection Method Collection Time Receive d Time (Source) Location / / Volume Laterality Blood 04/19/2019 2:02 PM 0 2:04 COMPONENT ASSEMBLER PM COMPONENT ASSEMBLER Unknown Provider LAB POCT ORDERABLES-MANUAL Performing Organization Address City/[facility] Phon e Number POC [facility] [address] [place] [address] [place] [address] Elizabeth POC [address] (ABNORMAL) ACT (Activated Clotting Time), POCT (04/19/2019 1:19 PM COMPONENT ASSEMBLER) athologist Signature Activated 300 (H) 84 - 139 04/19/2019 PCSM Clotting Time, sec 1:30 PM COMPONENT ASSEMBLER POCT Specimen Anatomical Collection Method Collection Time Receive d Time (Source) Location / / Volume Laterality Blood 04/19/2019 1:19 PM 0 1:30 COMPONENT ASSEMBLER PM COMPONENT ASSEMBLER Unknown Provider LAB POCT ORDERABLES - DEVICE Performing Organization Address City/[facility] Phon e Number [facility] [address] [place], [place] [address] [place] [address] Elizabeth POC [address] (ABNORMAL) ABG and Lytes, POCT (04/19/2019 12:58 PM COMPONENT ASSEMBLER) P athologist Signature Sample Site, Artline 04/19/2019 PCLX POCT 1:04 PM COMPONENT ASSEMBLER Comment: ----ADDITIONAL INFORMATION---- Performed at the Point of Care pH, POCT 7.41 7.35 - 7.45 04/19/2019 1:04 PM COMPONENT ASSEMBLER PCLX Comment: ----ADDITIONAL INFORMATION---- Performed at the Point of Care pCO2, POCT 43 32 - 45 mm Hg 04/19/2019 1:04 PM COMPONENT ASSEMBLER PC LX Comment: ----ADDITIONAL INFORMATION---- Performed at the Point of Care pO2, POCT 160 (H) 83 - 108 mm Hg 04/19/2019 1:04 PM COMPONENT ASSEMBLER PC LX Comment: ----ADDITIONAL INFORMATION---- Performed at the Point of Care Base, POCT 3 -2 - 3 mmol/L 04/19/2019 1:04 PM COMPONENT ASSEMBLER PC LX Comment: ----ADDITIONAL INFORMATION---- Performed at the Point of Care HCO3, POCT 27 (H) 22 - 26 mmol/L 04/19/2019 1:04 PM COMPONENT ASSEMBLER P CLX Comment: ----ADDITIONAL INFORMATION---- Performed at the Point of Care Sodium, POCT, B 137 135 - 145 mmol/L 04/19/2019 1:04 P M COMPONENT ASSEMBLER PCLX Comment: ----ADDITIONAL INFORMATION---- Performed at the Point of Care Potassium, POCT, B 3.3 (L) 3.6 - 5.2 mmol/L 04/19/2019 1:0 4 PM COMPONENT ASSEMBLER PCLX Comment: ----ADDITIONAL INFORMATION---- Performed at the Point of Care Hematocrit, POCT, B 39.0 35.5 - 44.9 % 04/19/2019 1:04 PM COMPONENT ASSEMBLER PCLX Comment: ----ADDITIONAL INFORMATION---- Performed at the Point of Care Specimen Anatomical Collection Method Collection Time Receive d Time (Source) Location / / Volume Laterality Blood 04/19/2019 12:58 04/19/2019 1:04 PM COMPONENT ASSEMBLER PM COMPONENT ASSEMBLER Unknown Provider LAB POCT ORDERABLES - DEVICE Performing Organization Address City/State/ZIP Code Phon e Number POC [facility] [address] [place] [address] [place] [address] Elizabeth POC [address] (ABNORMAL) ACT (Activated Clotting Time), POCT (04/19/2019 12:48 PM COMPONENT ASSEMBLER) athologist Signature Activated 369 (H) 84 - 139 04/19/2019 PCSM Clotting Time, sec 1:04 PM COMPONENT ASSEMBLER POCT Specimen Anatomical Collection Method Collection Time Receive d Time (Source) Location / / Volume Laterality Blood 04/19/2019 12:48 04/19/2019 1:04 PM COMPONENT ASSEMBLER PM COMPONENT ASSEMBLER Unknown Provider LAB POCT ORDERABLES - DEVICE Performing Organization Address City/[facility] Phon e Number [facility]OC [facility] [address] [place], [place] [address] [place] [address] Elizabeth POC [address] [place] [address] (ABNORMAL) Glucose, POCT (04/19/2019 12:47 PM COMPONENT ASSEMBLER) athologist Signature Glucose, POCT, 199 (H) 70 - 140 04/19/2019 PCLX B mg/dL 12:49 PM COMPONENT ASSEMBLER Site ARTLINE 04/19/2019 PCLX 12:49 PM COMPONENT ASSEMBLER Specimen Anatomical Collection Method Collection Time Receive d Time (Source) Location / / Volume Laterality Blood 04/19/2019 12:47 04/19/2019 PM COMPONENT ASSEMBLER 12:49 PM COMPONENT ASSEMBLER Unknown Provider LAB POCT ORDERABLES-MANUAL Performing Organization Address City/[facility]/ZIP [facility] Phon e Number [facility] [address] [place] [address] [place] [address] Elizabeth POC 200 [facility] (ABNORMAL) ACT (Activated Clotting Time), POCT (04/19/2019 12:19 PM COMPONENT ASSEMBLER) athologist Signature Activated 341 (H) 84 - 139 04/19/2019 PCSM Clotting Time, sec 12:30 PM COMPONENT ASSEMBLER POCT Specimen Anatomical Collection Method Collection Time Receive d Time (Source) Location / / Volume Laterality Blood 04/19/2019 12:19 04/19/2019 PM COMPONENT ASSEMBLER 12:30 PM COMPONENT ASSEMBLER Unknown Provider LAB POCT ORDERABLES - DEVICE Performing Organization Address City/[facility] Phon e Number [facility]OC [facility] [address] [place], [place] [address] [place]S [place], [place] [address] [place] [address] (ABNORMAL) Prothrombin Time (PT) (04/19/2019 12:16 PM COMPONENT ASSEMBLER) [facility] gist Method Time Signature Prothrombin 95.8 (H) 9.4 - 12.5 04/19/2019 [facility] Time, P sec 12:49 PM COMPONENT ASSEMBLER INR 8.3 (CH) 0.9 - 1.1 04/19/2019 [facility] 12:49 PM COMPONENT ASSEMBLER Comment: ----ADDITIONAL INFORMATION---- Standard intensity warfarin therapeutic range: 2.0 to 3.0 ?? High intensity warfarin therapeutic rang e: 2.5 to 3.5 Specimen Anatomical Collection Method Collection Time Receive d Time (Source) Location / / Volume Laterality Blood (Blood, 04/19/2019 12:16 04/19/2019 Venous) PM COMPONENT ASSEMBLER 12:23 PM COMPONENT ASSEMBLER Ana Soto APRN.N.Howard., M.S.N. LAB BLOOD ADD-ON Performing Organization Address City/State/ZIP Code Phon e Number [facility] - [address] [place], [place] [address] (ABNORMAL) ACT (Activated Clotting Time), POCT (04/19/2019 11:55 AM COMPONENT ASSEMBLER) athologist Signature Activated 296 (H) 84 - 139 04/19/2019 PCSM Clotting Time, sec 12:06 PM COMPONENT ASSEMBLER POCT Specimen Anatomical Collection Method Collection Time Receive d Time (Source) Location / / Volume Laterality Blood 04/19/2019 11:55 04/19/2019 AM COMPONENT ASSEMBLER 12:06 PM COMPONENT ASSEMBLER Unknown Provider LAB POCT ORDERABLES - DEVICE Performing Organization Address City/[facility]/ZIP [facility] Phon e Number [facility]OC [facility] [address] [place], [place] [address] [place]S [place] [id number] [place] [address] POC [address] [place] (ABNORMAL) ACT (Activated Clotting Time), POCT (04/19/2019 11:27 AM COMPONENT ASSEMBLER) athologist Signature Activated 353 (H) 84 - 139 04/19/2019 PCSM Clotting Time, sec 11:38 AM COMPONENT ASSEMBLER POCT Specimen Anatomical Collection Method Collection Time Receive d Time (Source) Location / / Volume Laterality Blood 04/19/2019 11:27 04/19/2019 AM COMPONENT ASSEMBLER 11:39 AM COMPONENT ASSEMBLER Unknown Provider LAB POCT ORDERABLES - DEVICE Performing Organization Address City/[facility] Code Phon e Number POC [facility] IN[facility]IENT [address] [place], [place] [address] LABS [place] [phone] [place] [address] (ABNORMAL) ACT (Activated Clotting Time), POCT (04/19/2019 11:05 AM COMPONENT ASSEMBLER) athologist Signature Activated 296 (H) 84 - 139 04/19/2019 PCSM Clotting Time, sec 11:17 AM COMPONENT ASSEMBLER POCT Specimen Anatomical Collection Method Collection Time Receive d Time (Source) Location / / Volume Laterality Blood 04/19/2019 11:05 04/19/2019 AM COMPONENT ASSEMBLER 11:17 AM COMPONENT ASSEMBLER Unknown Provider LAB POCT ORDERABLES - DEVICE Performing Organization Address City/[facility] Phon e Number POC [facility] IN[facility] [address] [place], [place] [address] LABS [place] [phone] [place] [address] (ABNORMAL) Basic Metabolic Panel (04/19/2019 10:46 AM COMPONENT ASSEMBLER) athologist Signature Potassium, P 3.6 3.6 - 5.2 04/19/2019 [facility] mmol/L 11:18 AM COMPONENT ASSEMBLER Sodium, P 139 135 - 145 04/19/2019 [facility] mmol/L 11:18 AM COMPONENT ASSEMBLER Chloride, P 100 98 - 107 04/19/2019 [facility] mmol/L 11:18 AM COMPONENT ASSEMBLER Bicarbonate, P 25 22 - 29 04/19/2019 [facility] mmol/L 11:18 AM COMPONENT ASSEMBLER Anion Gap, P 14 7 - 15 04/19/2019 [facility] 11:18 AM COMPONENT ASSEMBLER BUN (Blood Urea 12 6 - 21 04/19/2019 [facility] Nitrogen), P mg/dL 11:18 AM COMPONENT ASSEMBLER Creatinine 0.76 0.59 - 04/19/2019 [facility] 1.04 mg/dL 11:18 AM COMPONENT ASSEMBLER eGFR-Black/Afric >90 >=60 04/19/2019 [facility] an Cymro mL/min/BSA 11:18 AM COMPONENT ASSEMBLER Comment: ----ADDITIONAL INFORMATION---- Estimated GFR calculated using the 2009 CKD_EPI creatinine equation. eGFR Non-Black/ 84 >=60 mL/min/BSA 04/19/2019 11:18 AM COMPONENT ASSEMBLER STMA Comment: ----ADDITIONAL INFORMATION---- Estimated GFR calculated using the 2009 CKD_EPI creatinine equation. Calcium, Total, P 8.8 8.8 - 10.2 mg/dL 04/19/2019 11:1 8 AM COMPONENT ASSEMBLER STMA Glucose, P 210 (H) 70 - 140 mg/dL 04/19/2019 11:18 AM COMPONENT ASSEMBLER STMA Specimen Anatomical Collection Method Collection Time Receive d Time (Source) Location / / Volume Laterality Blood (Blood, 04/19/2019 10:46 04/19/2019 Venous) AM COMPONENT ASSEMBLER 11:01 AM COMPONENT ASSEMBLER Renetta Greer APRN, C.N.P., D.N.P. LAB BLOOD ADD-ON Performing Organization Address City/State/ZIP Code Phon e Number [facility] - [address] [place], [place] [address] [place] [address] [facility] [address] (ABNORMAL) CBC with Differential, Blood (04/19/2019 10:46 AM COMPONENT ASSEMBLER) [facility] Method Time Signature Hemoglobin 13.6 11.6 - 04/19/2019 [facility]MA 15.0 g/dL 11:10 AM COMPONENT ASSEMBLER Hematocrit 40.1 35.5 - 04/19/2019 [facility] 44.9 % 11:10 AM COMPONENT ASSEMBLER Erythrocytes 4.42 3.92 - 04/19/2019 [facility]MA 5.13 11:10 AM COMPONENT ASSEMBLER x10(12)/L MCV 90.7 78.2 - 04/19/2019 [facility] 97.9 fL 11:10 AM COMPONENT ASSEMBLER RBC Distrib Width 11.9 (L) 12.2 - 04/19/2019 [facility] 16.1 % 11:10 AM COMPONENT ASSEMBLER Platelet Count 359 157 - 371 04/19/2019 [facility] x10(9)/L 11:10 AM COMPONENT ASSEMBLER Leukocytes 9.0 3.4 - 9.6 04/19/2019 [facility] x10(9)/L 11:10 AM COMPONENT ASSEMBLER Neutrophils 5.07 1.56 - 04/19/2019 STMA 6.45 11:10 AM COMPONENT ASSEMBLER x10(9)/L Lymphocytes 2.74 0.95 - 04/19/2019 [facility] 3.07 11:10 AM COMPONENT ASSEMBLER x10(9)/L Monocytes 0.65 0.26 - 04/19/2019 [facility] 0.81 11:10 AM COMPONENT ASSEMBLER x10(9)/L Eosinophils 0.40 0.03 - 04/19/2019 [facility] 0.48 11:10 AM COMPONENT ASSEMBLER x10(9)/L Basophils 0.14 (H) 0.01 - 04/19/2019 [facility] 0.08 11:10 AM COMPONENT ASSEMBLER x10(9)/L Specimen Anatomical Collection Method Collection Time Receive d Time (Source) Location / / Volume Laterality Blood (Blood, 04/19/2019 10:46 04/19/2019 Venous) AM COMPONENT ASSEMBLER 11:01 AM COMPONENT ASSEMBLER Ana Pickett APRN.N.P., D.N.P. LAB BLOOD ADD-ON Performing Organization Address [facility] Phon e Number [facility] [address] (ABNORMAL) Prothrombin Time (PT) (04/19/2019 10:46 AM COMPONENT ASSEMBLER) [facility] Method Time Signature Prothrombin 58.0 (H) 9.4 - 12.5 04/19/2019 [facility] Time, P sec 11:14 AM COMPONENT ASSEMBLER INR 5.1 (CH) 0.9 - 1.1 04/19/2019 [facility] 11:14 AM COMPONENT ASSEMBLER Comment: ----ADDITIONAL INFORMATION---- Standard intensity warfarin therapeutic range: 2.0 to 3.0 ?? High intensity warfarin therapeutic rang e: 2.5 to 3.5 Specimen Anatomical Collection Method Collection Time Receive d Time (Source) Location / / Volume Laterality Blood (Blood, 04/19/2019 10:46 04/19/2019 Venous) AM COMPONENT ASSEMBLER 11:01 AM COMPONENT ASSEMBLER Renetta Greer APRN C.N.P., D.N.P. LAB BLOOD ADD-ON Performing Organization Address City/[facility] Phon e Number [facility] [address] Type and Screen (with reflex Antibody ID) (04/19/2019 10:45 AM COMPONENT ASSEMBLER) [facility] gist Method Time Signature ABORh A Pos Not 04/19/2019 STRM applicable 11:25 AM COMPONENT ASSEMBLER Antibody Negative Negative 04/19/2019 [facility]M Screen 11:40 AM COMPONENT ASSEMBLER Type & Screen 04/22/2019 04/19/2019 [facility]M Expiration 23:59 11:25 AM COMPONENT ASSEMBLER Testing Elizabeth DEFAULT 04/19/2019 STRM Location 11:00 AM COMPONENT ASSEMBLER Specimen Anatomical Collection Method Collection Time Receive d Time (Source) Location / / Volume Laterality Blood (Arm, 04/19/2019 10:45 04/19/2019 Right) AM COMPONENT ASSEMBLER 11:00 AM COMPONENT ASSEMBLER Renetta Greer APRN C.N.P., D.N.P. LAB BLOOD BANK T EST ORDERABLES Performing Organization Address City/State/ZIP Code Phon e Number [facility] - [address] [place], [place] [address] [place] [address] [facility] [address] (ABNORMAL) Glucose, POCT (04/19/2019 10:44 AM COMPONENT ASSEMBLER) athologist Signature Glucose, POCT, 206 (H) 70 - 140 04/19/2019 [facility] B mg/dL 10:55 AM COMPONENT ASSEMBLER Site ARTLINE 04/19/2019 P[facility]X 10:55 AM COMPONENT ASSEMBLER Specimen Anatomical Collection Method Collection Time Receive d Time (Source) Location / / Volume Laterality Blood 04/19/2019 10:44 04/19/2019 AM COMPONENT ASSEMBLER 10:55 AM COMPONENT ASSEMBLER Unknown Provider LAB POCT ORDERABLES-MANUAL Performing Organization Address City/State/ZIP Code Phon e Number POC [facility] [address] [place] [address] [place] [address] [facility] [address] (ABNORMAL) ACT (Activated Clotting Time), POCT (04/19/2019 10:41 AM COMPONENT ASSEMBLER) athologist Signature Activated 341 (H) 84 - 139 04/19/2019 [facility] Clotting Time, sec 10:53 AM COMPONENT ASSEMBLER POCT Specimen Anatomical Collection Method Collection Time Receive d Time (Source) Location / / Volume Laterality Blood 04/19/2019 10:41 04/19/2019 AM COMPONENT ASSEMBLER 10:53 AM COMPONENT ASSEMBLER Unknown Provider LAB POCT ORDERABLES - DEVICE Performing Organization Address [facility] Phon e Number POC [facility] [address] [place], [place] [address] [place] [address] [facility] [address] [place] [address] Echo - Intraprocedural Images Only (04/19/2019 8:52 AM COMPONENT ASSEMBLER) Specimen (Source) Anatomical Location Collection Method / Collectio n Time Received Time / Laterality Volume Narrative CV EIMS - 04/21/2019 8:52 AM COMPONENT ASSEMBLER Echocardiographic images obtained during EP. See EP report for findings. Marla Pham CV ECHO PROCEDURES Performing Organization Address [facility] Phon e Number CV EIMS NA INR, POCT (04/19/2019 8:37 AM COMPONENT ASSEMBLER) P athologist Signature INR, POCT, B 2.4 04/19/2019 PCED 11:59 AM COMPONENT ASSEMBLER Comment: ----ADDITIONAL INFORMATION---- Standard intensity warfarin therapeutic range: 2.0 to 3.0 ?? High intensity warfarin therapeutic rang e: 2.5 to 3.5 Specimen Anatomical Collection Method Collection Time Receive d Time (Source) Location / / Volume Laterality 04/19/2019 8:37 AM 0 COMPONENT ASSEMBLER 11:59 AM COMPONENT ASSEMBLER Unknown Provider LAB POCT ORDERABLES - DEVICE Performing Organization Address [facility] Phon e Number POC [facility] [address] [place] [address] OUTPATIENT LABS PCED [facility] [place] [address] Elizabeth POC [address] [facility] (ABNORMAL) Glucose, POCT (04/19/2019 8:37 AM COMPONENT ASSEMBLER) P athologist Signature Glucose, POCT, 224 (H) 70 - 140 04/19/2019 PCLX B mg/dL 8:41 AM COMPONENT ASSEMBLER Specimen Anatomical Collection Method Collection Time Receive d Time (Source) Location / / Volume Laterality Blood 04/19/2019 8:37 AM 0 8:41 COMPONENT ASSEMBLER AM COMPONENT ASSEMBLER Unknown Provider LAB POCT ORDERABLES-MANUAL Performing Organization Address City/State/ZIP Code Phon e Number POC [facility] [address] [place] [address] PCLX [facility] [place] [address] [place] POC [address] documented in this [...] tablet 1,000 mg Given 04/21/2019 9:55 AM COMPONENT ASSEMBLER 1,000 mg (TYLENOL) 1,000 mg, oral, Every 6 hours PRN, mild pain or score 1-3 of 10, Starting on Fri04/19/19 at 1502, Postprocedure (CV) benzocaine-menthol 15-3.6 mg per lozenge 1 Given 04/21 9:55 AM COMPONENT ASSEMBLER 1 lozenge lozenge (CEPACOL) 1 lozenge, oral, Every 4 hours PRN, sore throat, Starting on Fri04/19/19 at 0934, Postprocedure (CV) Given 04/21/2019 4:53 AM COMPONENT ASSEMBLER 1 lozenge Given 04/20/2019 9:14 PM COMPONENT ASSEMBLER 1 lozenge clotrimazole-betamethasone 1-0.05 % Given 04/21/2019 8:36 AM COMPONENT ASSEMBLER 1 application cream 1 application (LOTRISONE) 1 application, topical, 2 times daily, First dose on Fri04/19/19 at 2100, Postprocedure (CV) Given 04/20/2019 8:20 PM COMPONENT ASSEMBLER 1 application Given 04/20/2019 8:49 AM COMPONENT ASSEMBLER 1 application docusate sodium capsule 100 mg (COLACE) Given 04/21/2019 10:29 AM COMPONENT ASSEMBLER 100 mg 100 mg, oral, 2 times daily PRN, constipation, Starting on Fri04/19/19 at 1502, Postprocedure (CV), Do NOT crush or chew. DULoxetine DR capsule 30 mg (CYMBALTA) Given 04/21/2019 8:38 AM COMPONENT ASSEMBLER 30 mg 30 mg, oral, 2 times daily, First dose on Fri04/19/19 at 2100, Postprocedure (CV), See tube feeding guidelines for tube feeding administration instructions. Given 04/20/2019 8:13 PM COMPONENT ASSEMBLER 30 mg Given 04/20/2019 8:46 AM COMPONENT ASSEMBLER 30 mg ferrous sulfate tablet 65 mg of iron Given 04/21/2019 8:37 AM COMPONENT ASSEMBLER 65 mg of iron 65 mg of iron, oral, Daily, First dose on Fri04/20/19 at 0900, Postprocedure (CV) Given 04/20/2019 8:45 AM COMPONENT ASSEMBLER 65 mg of iron flecainide tablet 100 mg (TAMBOCOR) Given 04/21/2019 8:38 AM COMPONENT ASSEMBLER 100 mg 100 mg, oral, 2 times daily, First dose on Fri04/19/19 at 2100 Given 04/20/2019 8:13 PM COMPONENT ASSEMBLER 100 mg Given 04/20/2019 8:45 AM COMPONENT ASSEMBLER 100 mg fluticasone furoate 100 mcg/actuation inhaler Given 8:36 AM COMPONENT ASSEMBLER 1 puff 1 puff (ARNUITY ELLIPTA) 1 puff, inhalation, Daily, First dose on Fri04/20/19 at 0900, Postprocedure (CV), Rinse mouth with water after use to reduce aftertaste and incidence of candidiasis. Do not swallow. Given 04/20/2019 8:48 AM COMPONENT ASSEMBLER 1 puff furosemide injection 20 mg (LASIX) Given 04/20/2019 9:13 AM COMPONENT ASSEMBLER 20 mg 20 mg, intravenous, Once, On Fri04/20/19 at 0700, For 1 dose, Adults: Doses less than 120 mg: IV push over 20 mg/minute. Doses 120 mg or greater: IVPB at 4 mg/minute. Peds/Neonates: Doses less than 120 mg over 0.5 mg/kg/minute. Doses 120 mg or greater: IVPB at 4 mg/minute. furosemide injection 20 mg (LASIX) Given 04/20/2019 1:25 PM COMPONENT ASSEMBLER 20 mg 20 mg, intravenous, Once, On Fri04/20/19 at 1330, For 1 dose, N/a furosemide injection 40 mg (LASIX) Given 04/21/2019 6:30 AM COMPONENT ASSEMBLER 40 mg 40 mg, intravenous, Once, On Fri04/21/19 at 0700, For 1 dose, N/a levothyroxine tablet 25 mcg (SYNTHROID, Given 04/21/2019 6:30 AM COMPONENT ASSEMBLER 25 mcg LEVOTHROID) 25 mcg, oral, Daily before breakfast, First dose on Fri04/20/19 at 0700, Postprocedure (CV) Given 04/20/2019 5:37 AM COMPONENT ASSEMBLER 25 mcg magnesium sulfate in water IVPB 2 g New Bag 04/19/2019 6:06 PM COMPONENT ASSEMBLER 2 g 25 mL/hr 2 g, intravenous, at 25 mL/hr, Administer over 120 Minutes, Once, On Fri04/19/19 at 1745, For 1 dose, Over 2 hours. premix bag metFORMIN tablet 500 mg (GLUCOPHAGE) Given 04/21/2019 8:38 AM COMPONENT ASSEMBLER 500 mg 500 mg, oral, 2 times daily with meals, First dose on Fri04/19/19 at 1700 Given 04/20/2019 5:20 PM COMPONENT ASSEMBLER 500 mg Given 04/20/2019 8:46 AM COMPONENT ASSEMBLER 500 mg methyl salicylate-menthol 30-10 % cream 1 application (ICY HOT) 1 application, topical, Every 2 hour PRN, muscle/joint pain, Starting on Fri04/19/19 at 1628, @@ Generic Substitution for BenGay @@ @ metoprolol tartrate tablet 50 mg (LOPRES SOR) Given 04/21/2019 8:37 AM COMPONENT ASSEMBLER 50 mg 50 mg, oral, 2 times daily, First dose on Fri04/19/19 at 2100 Given 04/20/2019 8:13 PM COMPONENT ASSEMBLER 50 mg Given 04/20/2019 8:45 AM COMPONENT ASSEMBLER [address] capsule 40 mg (PriLOSEC) Given 04/21/2019 6:30 AM COMPONENT ASSEMBLER 40 mg 40 mg, oral, Daily before breakfast, First dose on Fri04/21/19 at 0700, Postprocedure (CV), Do NOT crush or chew. Capsule may be opened and the contents taken without crushing or chewing. potassium chloride ER tablet 40 mEq Given 04/19/2019 6:02 PM COMPONENT ASSEMBLER 40 mEq (KLORCON/K-TAB) 40 mEq, oral, Once, [...] 8.6 mg (SENOKOT) Given 04/21/2019 10:29 AM COMPONENT ASSEMBLER 8.6 mg 8.6 mg, oral, As needed, constipation, Starting on Fri04/19/19 at 0930, Postprocedure (CV) simvastatin tablet 20 mg (ZOCOR) Given 04/20/2019 8:13 PM COMPONENT ASSEMBLER 20 mg 20 mg, oral, Daily at bedtime, First dose on Fri04/19/19 at 2100, Postprocedure (CV) Given 04/19/2019 8:12 PM COMPONENT ASSEMBLER 20 mg sodium chloride 0.9 % injection 10 mL 10 mL, intravenous, As needed, line care , Peripheral Intravenous Catheter and Rapid Infusion Catheter, Starting on Fri at 2109, Prior to blood sampling, post blood transfusion or post blood sampling. sodium chloride 0.9 % injection 3 mL Given 04/20/2019 9:15 PM COMPONENT ASSEMBLER 3 mL 3 mL, intravenous, As needed, line care, Peripheral Intravenous Catheter and Rapid Infusion Catheter, Starting on Fri04/20/19 at 2109, Prior to and following infusion and between multiple consecutive infusions. sodium chloride 0.9 % injection 3 mL Given 04/21/2019 8:38 AM COMPONENT ASSEMBLER 3 mL 3 mL, intravenous, Every 12 hours scheduled, First dose on Fri04/21/19 at 0900, Peripheral Intravenous Catheter and Rapid Infusion Catheter: When no infusion to maintain patency. SUMAtriptan tablet 50 mg (IMITREX) Given 04/21/2019 4:44 AM COMPONENT ASSEMBLER 50 mg 50 mg, oral, Every 2 hour PRN, migraine, Starting on Fri04/19/19 at 0930, For 2 doses, Postprocedure (CV), SUMAtriptan oral was interchanged for rizatriptan Given 04/20/2019 11:29 AM COMPONENT ASSEMBLER 50 mg topiramate tablet 25 mg (TOPAMAX) Given 04/21/2019 8:38 AM COMPONENT ASSEMBLER 25 mg 25 mg, oral, Daily, First dose on Fri04/20/19 at 0900, Postprocedure (CV) Given 04/20/2019 8:46 AM COMPONENT ASSEMBLER 25 mg warfarin management (COUMADIN) oral, Daily, [...] 6 mg (COUMADIN) Given 04/19/2019 6:02 PM COMPONENT ASSEMBLER 6 mg 6 mg, oral, Once, On Fri04/19/19 at 1700, For 1 dose warfarin tablet 6 mg (COUMADIN) Given 04/20/2019 5:20 PM COMPONENT ASSEMBLER 6 mg 6 mg, oral, Once, On Fri04/20/19 at 1700, For 1 dose documented in this encounter Active and Recently Administered Medications Times are shown in COMPONENT ASSEMBLER. Scheduled Medication Order 04/19/2019 04/20/2019 04/21/2019 clotrimazole-betamethasone [...] 0838 (Given - Provider: Talya Duffy REdilmaN.)0945 ([facility] Hold - Provider: Transfer Provider, Automatic - Reason: Patient not available)0954 ([facility] Unhold - Provider: Transfer Provider, Automatic) 30 mg, oral, 2 times daily, First dose o n Fri04/19/19 at 2100, Postprocedure (CV), See tube feeding guidelines for tube feeding administration instructions. ferrous sulfate tablet 65 mg of iron 084 5 (Given - Provider: Jhony Diego RMary Ann) 0837 (Given - Provider: Talya tierney R.N.)0945 ([facility] Hold - Provider: Transfer Provider, Automatic - Reason: Patient not available)0954 ([facility] Unhold - Provider: Transfer Provider, Automatic) 65 mg of iron, oral, Daily, First dose o n Fri04/20/19 at 0900, Postprocedure (CV) flecainide tablet 100 mg (TAMBOCOR) 2011 (Given - Prov ider: Naren Michaels REdilmaN.) 0845 (Given - Provider: Jhony smith REdilmaNEdilma)2012 (Given - Provider: Valerie Jaquez RMary Ann) 0838 (Given - Provider: Talya tierney R.N.)0945 ([facility] Hold - Provider: Transfer Provider, Automatic - Reason: Patient not available)0954 ([facility] Unhold - Provider: Transfer Provider, Automatic) 100 mg, oral, 2 times daily, First dose on Fri04/19/19 at 2100 fluticasone furoate 100 mcg/actuation inhaler 1 puff (ARNUIT Y ELLIPTA) 0848 (Given - Provider: Jhony Diego RMary Ann) 0836 (Given - Provider: Talya Duffy REdilmaNEdilma)0945 ([facility] Hold - Provider: Transfer Provider, Automatic - Reason: Patient not available)0954 ([facility] Unhold - Provider: Transfer Provider, [...] Provider, Automatic - Reason: Patient not available)0954 ([facility] Unhold - Provider: Transfer Provider, [...] Provider, Automatic - Reason: Patient not available)0954 ([facility] Unhold - Provider: Transfer Provider, Automatic) 500 mg, oral, 2 times daily with meals, First dose on Fri 0 at 1700 metoprolol tartrate tablet 50 mg (LOPRESSOR) 2011 (Giv en - Provider: Naren Michaels R.N.) 0845 (Given - Provider: Jhony smith RMary Ann)2012 (Given - Provider: Valerie Jaquez R.N.) 0837 (Given - Provider: Moise FlorNEdilma)0945 ([facility] Hold - Provider: Transfer Provider, Automatic - Reason: Patient not available)0954 ([facility] Unhold - Provider: Transfer Provider, Automatic) 50 mg, oral, 2 times daily, First dose on Fri04/19/[address] capsule 40 mg (PriLOSEC) 30 (Given - Provider: Candy Deluna RMary Ann)0945 ([facility] Hold - Provider: Transfer Provider, Automatic - Reason: Patient not available)0954 ([facility] Unhold - Provider: Transfer Provider, [...] (Given - Provider: Valerie Jaquez R.N.) 0945 ([facility] Hold - Provider: Transfer Provider, Automatic - Reason: Patient not available)0954 ([facility] Unhold - Provider: Transfer Provider, Automatic) 20 mg, oral, Daily at bedtime, First dos e on Fri04/19/19 at 2100, Postprocedure (CV) sodium chloride 0.9 % injection 3 mL 0838 (Given - Provider: Talya Duffy REdilmaNEdilma)0945 ([facility] Hold - Provider: Transfer Provider, Automatic - Reason: Patient not available)0954 ([facility] Unhold - Provider: Transfer Provider, Automatic) 3 mL, intravenous, Every 12 hours schedu led, First dose on Fri04/21/19 at 0900, Peripheral Intravenous Catheter and Rapid Infusion Catheter: When no infusion to maintain patency. topiramate tablet 25 mg (TOPAMAX) 0846 ( Given - Provider: Jhony Diego R.N.) 0838 (Given - Provider: Talya tireney R.N.)0945 ([facility] Hold - Provider: Transfer Provider, Automatic - Reason: Patient not available)0954 ([facility] Unhold - Provider: Transfer Provider, Automatic) 25 mg, oral, Daily, First dose on Fri04/20/19 at 0900, Postproce dure (CV) warfarin management (COUMADIN) 1700 (Due) 0 945 ([facility] Hold - Provider: Transfer Provider, Automatic - Reason: Patient not available)0954 ([facility] Unhold - Provider: Transfer Provider, [...] 04/21/2019 acetaminophen tablet 1,000 mg (TYLENOL) 0945 ([facility] Hold - Provider: Transfer Provider, Automatic - Reason: Patient not available)0954 ([facility] Unhold - Provider: Transfer Provider, Automatic)0955 (Given - Provider: Talya Duffy R.N.) 1,000 mg, oral, Every 6 hours PRN, mild pain or score 1-3 of 10, Starting on 04/19/19 at 1502, Postprocedure (CV) albuterol 90 mcg/actuation inhaler 2 puff (PROVENTIL HFA,VENTOLI N HFA) 0945 ([facility] Hold - Provider: Transfer Provider, Automatic - Reason: Patient not available)0953 ([facility] Unhold - Provider: Transfer Provider, Automatic) 2 puff, inhalation, Every 4 hours PRN, s hortness of breath, Starting Fri04/19/19 at 0928, Postprocedure (CV) alum-mag hydroxide-simeth 200-200-20 mg/5 mL suspension 15 mL (M AALOX) 0945 ([facility] Hold - Provider: Transfer Provider, Automatic - Reason: Patient not available)0953 ([facility] Unhold - Provider: Transfer Provider, Automatic) 15 mL, oral, Every 6 hours PRN, indigest ion, Starting 04/19/19 at 0928, Postprocedure (CV) atropine injection 0.5 mg 0945 ( [facility] Hold - Provider: Transfer Provider, Automatic - Reason: Patient not available)0954 ([facility] Unhold - Provider: Transfer Provider, [...] 0453 (Given - Provider: Aria Green R.N.)0945 ([facility] Hold - Provider: Transfer Provider, Automatic - Reason: Patient not available)0954 ([facility] Unhold - Provider: Transfer Provider, Automatic)0955 (Given - Provider: Talya Dfufy RMary Ann) 1 lozenge, oral, Every 4 hours PRN, sore throat, Starting on Fri04/19/19 at 0934, Postprocedure (CV) carboxymethylcellulose 0.5 % ophthalmic solution 1 drop (REFRESH PLUS) 0945 ([facility] Hold - Provider: Transfer Provider, Automatic - Reason: Patient not available)0954 ([facility] Unhold - Provider: Transfer Provider, Automatic) 1 drop, both eyes, 4 times daily PRN, dr y eyes, Starting Fri04/19/19 at 0931, Postprocedure (CV) diazePAM tablet 2 mg (VALIUM) 09 45 ([facility] Hold - Provider: Transfer Provider, Automatic - Reason: Patient not available)0954 ([facility] Unhold - Provider: Transfer Provider, Automatic) 2 mg, oral, Every 2 hour PRN, anxiety, m uscle spasms, Starting Fri04/19/19 at 1502, For 2 doses, Postprocedure (CV), May repeat once if first dose ineffective. Until sheath removal. docusate sodium capsule 100 mg (COLACE) 0945 ([facility] Hold - Provider: Transfer Provider, Automatic - Reason: Patient not available)0954 ([facility] Unhold - Provider: Transfer Provider, Automatic)1038 (Not Given - Provider: Talya Duffy RManjeet. - Reason: Other) 100 mg, oral, 2 times daily PRN, constip ation, Starting Fri04/19/19 at 0934, Postprocedure (CV), Do NOT crush or chew. docusate sodium capsule 100 mg (COLACE) 0945 ([facility] Hold - Provider: Transfer Provider, Automatic - Reason: Patient not available)0954 ([facility] Unhold - Provider: Transfer Provider, Automatic)1029 (Given - Provider: Talya Duffy RMary Ann) 100 mg, oral, 2 times daily PRN, constip ation, Starting on Fri04/19/19 at 1502, Postprocedure (CV), Do NOT crush or chew. fentaNYL injection 25 mcg (SUBLIMAZE) 0945 ([facility] Hold - Provider: Transfer Provider, [...] Provider, Automatic - Reason: Patient not available)0954 ([facility] Unhold - Provider: Transfer Provider, [...] Provider, Automatic - Reason: Patient not available)0954 ([facility] Unhold - Provider: Transfer Provider, Automatic) 3 mg, oral, Bedtime PRN, sleep, Starting Fri04/19/19 at 0934, Postprocedure (CV) methyl salicylate-menthol 30-10 % cream 1 application (ICY HOT) 0945 ([facility] Hold - Provider: Transfer Provider, Automatic - Reason: Patient not available)0954 ([facility] Unhold - Provider: Transfer Provider, Automatic) 1 application, topical, Every 2 hour PRN , muscle/joint pain, Starting on Fri04/19/19 at 1628, @@ Generic Substitution for BenGay @@@ midazolam (PF) injection 1 mg (VERSED) 0945 ([facility] Hold - Provider: Transfer Provider, Automatic - Reason: Patient not available)0954 ([facility] Unhold - Provider: Transfer Provider, Automatic) 1 mg, intravenous, Every 2 hour PRN, anx iety, muscle spasms, Starting Fri04/19/19 at 1502, For 2 doses, Postprocedure (CV), for over 2 minutes. May repeat x1 dosing interval. Patient must be NPO for 2 hours prior to giving. Until sheath removal. naloxone injection 0.2 mg (NARCAN) 0945 ([facility] Hold - Provider: Transfer Provider, Automatic - Reason: Patient not available)0954 ([facility] Unhold - Provider: Transfer Provider, Automatic) 0.2 mg, intravenous, As needed, respirat ory depression, Starting Fri04/19/19 at 1502, Postprocedure (CV), For respiratory rate less than 8 breaths per minute or RASS score of -3, -4, -5. Apply oxygen to keep oxygen saturations greater than 90% and notify service. oxyCODONE IR tablet 5 mg (ROXICODONE) 0945 ([facility] Hold - Provider: Transfer Provider, Automatic - Reason: Patient not available)0954 ([facility] Unhold - Provider: Transfer Provider, Automatic) 5 mg, oral, Every 6 hours PRN, moderate pain or score 4-6 of 10, Starting Fri04/19/19 at 1502, Postprocedure (CV), If acetaminophen ineffective and patient able to take oral analgesics polyethylene glycol powder packet 17 g (MIRALAX) 0945 ([facility] Hold - Provider: Transfer Provider, Automatic - Reason: Patient not available)0954 ([facility] Unhold - Provider: Transfer Provider, Automatic) 17 g, oral, As needed, constipation, Sta rting Fri04/19/19 at 0929, For 237 days, Postprocedure (CV), Dissolve in 240 mLs (8 ounces) of water prior to giving. Avoid mixing with starch-based thickened liquids. prochlorperazine injection 5 mg (COMPAZINE) 0945 ([facility] Hold - Provider: Transfer Provider, Automatic - Reason: Patient not available)0954 ([facility] Unhold - Provider: Transfer Provider, Automatic) 5 mg, intravenous, Every 6 hours PRN, na usea, vomiting, Starting on Fri04/19/19 at 1744 promethazine injection 6.25 mg (PHENERGAN) 0945 ([facility] Hold - Provider: Transfer Provider, Automatic - Reason: Patient not available)0954 ([facility] Unhold - Provider: Transfer Provider, Automatic) 6.25 mg, intravenous, Every 6 hours PRN, nausea, vomiting, Starting on Fri04/19/19 at 1744 sennosides tablet 8.6 mg (SENOKOT) 0945 ([facility] Hold - Provider: Transfer Provider, Automatic - Reason: Patient not available)0954 ([facility] Unhold - Provider: Transfer Provider, Automatic)1029 (Given - Provider: Talya Duffy REdilmaNEdilma) 8.6 mg, oral, As needed, constipation, S tarting on Fri04/19/19 at 0930, Postprocedure (CV) sodium chloride 0.9 % injection 10 mL 0945 ([facility] Hold - Provider: Transfer Provider, Automatic - Reason: Patient not available)0954 ([facility] Unhold - Provider: Transfer Provider, Automatic) 10 mL, intravenous, As needed, line care , Peripheral Intravenous Catheter and Rapid Infusion Catheter, Starting on Fri04/20/19 at 2109, Prior to blood sampling, post blood transfusion or post blood sampling. sodium chloride 0.9 % injection 3 mL 211 5 (Given - Provider: Valerie Jaquez RMary Ann) 0945 ([facility] Hold - Provider: Transfer Prov ider, Automatic - Reason: Patient not available)0954 ([facility] Unhold - Provider: Transfer Provider, [...] documented as of this encounter Care Teams State Fire Marshal Relationship Specialty Start Date End Date Elsewhere, Pcp PCP - General Internal Medicine 07/27/18 documented as of this encounter
--- OUTSIDE RECORDS SUMMARY | 2022-02-06 06:50 | XMS_ITS | Encounter Summary ---
:1955 Author Organization [facility] Address [address] [place] [address] Care Team Providers Name Role Phone Elsewhere, Pcp Primary Care Provider Unavailable Reason for Visit Reason Comments Follow-up Encounter Details Date Type Department Care Team Description 08/24/2019 Clinical Communication Department of Kitty Mchugh [facility] Cardiovascular Medicine R.N. in [facility] pelota maker [address] [place] [address] Social History Tobacco Use Types Packs/Day [...] do you attend mandaen or Never 2018 congregational services? Do you [...] GAIL Morelos from [facility]; [place], [place]. She was calling seeking verification that [...] name is Tamy and the number is [phone], ext #[phone]. Would you mind given them [...] documented as of this encounter Care Teams Vehicle Dismantler Relationship Specialty Start Date End Date Elsewhere, Pcp PCP - General Internal Medicine 07/27/18 documented as of this encounter
--- OUTSIDE RECORDS SUMMARY | 2022-02-06 06:50 | XMS_ITS | Encounter Summary ---
:1955 Author Organization [facility] Address [address] [place] [address] Care Team Providers Name Role Phone Elsewhere, Pcp Primary Care Provider Unavailable Encounter Details Date Type Department Care Team Description 07/06/2019 Clinical Communication Department of [facility] Cardiovascular Medicine Porfirio in [facility] nasim Kellogg [address] [facility] [address] [place] [address] [place], [place] [phone] Social History Tobacco Use Types Packs/Day [...] do you attend presybeterian or Never 2018 confucianist services? Do you [...] of this encounter Care Teams Sheet Metal Superintendent Relationship Specialty Start Date End Date Elsewhere, Pcp PCP - General Internal Medicine 07/27/18 documented as of this encounter
--- OUTSIDE RECORDS SUMMARY | 2022-02-06 06:51 | XMS_ITS | Encounter Summary ---
:1955 Author Organization [facility] Address [address] [place] [address] Care Team Providers Name Role Phone Elsewhere, Pcp Primary Care Provider Unavailable Encounter Details Date Type Department Care Team Description 04/19/2019 Anesthesia Event Division of Cardiovascular Melyssa Lazar, Diseases in [place], VARNISH MAKER, CRN A [place] [address] [place] [phone] Anesthesia Record Procedure Summary Procedure Name Responsible Anesthesiologist Anesthesia Start Ti me Anesthesia Stop Time ABLATION - PVI Amanda Lazar, NO, CHIEF SCIENCE OFFICER 04/19/19 0853 1414 Events Date Time Event [...] h andoff to the receiving staff during [facility] ch we 1. Identified the patient [...] 1,000 units/mL injection 15,000 Units heparin standard 13657 Units/250 mL in D5W infusion 3, 767.08 [...] 04/21/19 1053 b y 04/19/19; Orientation: Valerie Jqauez, Jard io, Talya Left, Posterior; Lennox Urias [...] do you attend baptist or Never 2018 temple services? Do you [...] Procedure Summary Date: 04/19/19 Room / Location: [facility] 112 / [facility] Anesthesia Start: 852 Anesthesia Stop: [...] Post Op nausea/vomiting: none Hydration status: euvolemic ECTOR BALANCE TRUING Anesthesia Preprocedure Evaluation - Amanda Lazar APRN, CRNA - 04/19/2019 10:58 AM CST Preprocedure Anesthesia & H&P Assessment Procedure Summary Anesthesia Start Date/Time: 04/19/19 0853 Procedures: ABLATION - PVI (N/A ) 3D Mapping - Carto (N/A ) Ultrasound guidance for vascular access (N/A ) Intracardiac Echocardiogram (N/A ) Diagnosis: Atrial Fibrillation (HCC) [I48.91] Location: [place] [address] / [facility] Surgeon: Marla Yeager M.B.B.S. Pertinent [...] with patient /legal guardian or through an ent surgeon. Risks/Benefits/Alternatives of Blood transfusion discussed with patient / legal guardian, including an opportunity to ask questions and/or decline some or all transfusion therapies. The patient / legalguardian consented to the use of all blood products, as deemed medically necessary Approval to Proceed: approved for anesthesia ECTOR BALANCE TRUING Anesthesia Procedure Notes - Amanda Lazar APRN, CRNA - 04/19/2019 9:50 AM INSPECTOR BALANCE TRUING Associated Order(s): Airway Airway Date/Time: 04/19/2019 9:08 AM Performed by: Amanda Lazar APRN, CRNA Authorized by: Amanda Lazar APRN, CRNA Patient location during procedure: OR / Procedure Area PROCEDURE DETAILS: Mask difficulty assessment: easy mask Final airway type: video laryngoscope Laryngeal Manipulation: no Final best view of glottic structures - Cormack/Lehane Score: grade 2A ETT location: oral VL device: glide scope [place] scope blade size: 3 Adult tube size: [...] airway technique used for educational purposes: yes ECTOR BALANCE TRUING Anesthesia Procedure Notes - Amanda Lazar APRN, CRNA - 04/19/2019 9:49 AM INSPECTOR BALANCE TRUING Associated Order(s): Invasive Catheter Invasive Catheter Date/Time: [...] with sutureless device Complications - arterial: none ECTOR BALANCE TRUING documented in this encounter Plan of Treatment Not on filedocumented as of this encounter Procedures Procedure Name Priority Date/Time Associated Comments Diagnosis LDA ANE ENDOTRACHEAL Routine 04/19/2019 9:50 AM R esults for this AIRWAY INSPECTOR BALANCE TRUING procedure are i n the results section. LDA ANE ARTERIAL LINE Routine 04/19/2019 9:49 AM Results for this INSERTION INSPECTOR BALANCE TRUING procedure are i n the results section. WI ARTL CATH/CNULA Routine 04/19/2019 9:49 AM Res ults for this MONITOR PERC INSPECTOR BALANCE TRUING procedure are i n the results section. documented in this encounter Results LDA ANE ENDOTRACHEAL AIRWAY (04/19/2019 9:50 AM INSPECTOR BALANCE TRUING) Narrative Amanda Lazar APRN, CRNA - 04/19/2019 9 :50 AM INSPECTOR BALANCE TRUING Amanda Lazar APRN, CRNA ? 04/19/2019 ??9:52 [...] ETT location: oral VL device: glide scope [place] scope blade size: 3 Adult tube size: [...] yes Amanda Lazar APRN, CRNA ANESTHESIA ORDERABLES WI ARTL CATH/CNULA MONITOR PERC, LDA ANE ARTERIAL LINE INSERTION (04/19/2019 9:49 AM INSPECTOR BALANCE TRUING) Narrative Amanda Lazar APRN, CRNA - 04/19/2019 9 :49 AM INSPECTOR BALANCE TRUING Amanda Lazar APRN, CRNA ? 04/19/2019 ??9:50 [...] Complications - arterial: none Amanda L Nagi VARNISH MAKER, CHIEF SCIENCE OFFICER PROCEDURE/MINOR SURGICAL ORD ERABLES documented in this encounter Visit Diagnoses Not on filedocumented in this encounter Administered Medications Inactive Administered Medications - up to 3 most recent administrations Medication Order MAR Action Action Date Dose Rate Site acetaminophen injection Given 04/19/2019 1:56 PM INSPECTOR BALANCE TRUING 1,000 mg (OFIRMEV) Administer over 15 Minutes, As needed, Starting on Fri04/19/19 at 1356, Anesthesia Intra-op adenosine injection (ADENOCARD) Given 04/19/2019 1:09 PM INSPECTOR BALANCE TRUING 9 mg As needed, Starting on Fri04/19/19 at 1301, Anesthesia Intra-op Given 04/19/2019 1:07 PM INSPECTOR BALANCE TRUING 9 mg Given 04/19/2019 1:01 PM INSPECTOR BALANCE TRUING 9 mg ceFAZolin injection (ANCEF) Given 04/19/2019 1:20 PM INSPECTOR BALANCE TRUING 2 g As needed, Starting on Fri04/19/19 at 1027, Anesthesia Intra-op Given 04/19/2019 10:27 AM INSPECTOR BALANCE TRUING 2 g fentaNYL injection (SUBLIMAZE) Given 04/19/2019 1:50 PM INSPECTOR BALANCE TRUING 50 mcg As needed, Starting on Fri04/19/19 at 0906, Anesthesia Intra-op Given 04/19/2019 11:34 AM INSPECTOR BALANCE TRUING 50 mcg Given 04/19/2019 9:56 AM INSPECTOR BALANCE TRUING 50 mcg fentaNYL injection (SUBLIMAZE) Given 04/19/2019 10:08 AM INSPECTOR BALANCE TRUING 100 mcg intravenous, As needed, Starting on Fri04/19/19 at 1008, Anesthesia Intra-op furosemide injection (LASIX) Given 04/19/2019 11:41 AM INSPECTOR BALANCE TRUING 20 mg As needed, Starting on Fri04/19/19 at 1141, Anesthesia Intra-op heparin (porcine) 1,000 unit/mL Given 04/19/2019 12:02 PM INSPECTOR BALANCE TRUING 3, 000 Units injection As needed, Starting on Fri04/19/19 at 1024, Anesthesia Intra-op Given 04/19/2019 11:12 AM INSPECTOR BALANCE TRUING 2,000 Units Given 04/19/2019 10:24 AM INSPECTOR BALANCE TRUING 10,000 Units heparin (porcine) 100 Rate/Dose 04/19/2019 12:55 13 Units/kg/hr 12.8 mL/hr Units/mL in D5W 250 mL Change PM INSPECTOR BALANCE TRUING infusion Continuous Infusion: Per Instructions PRN, Starting on Fri04/19/19 at 1030, Anesthesia Intra-op Rate/Dose Change 04/19/2019 12:01 PM INSPECTOR BALANCE TRUING 14 Units/kg/hr 13.8 mL/hr Rate/Dose Change 04/19/2019 11:12 AM INSPECTOR BALANCE TRUING 12 Units/kg/hr 11.8 mL/hr heparin infusion 2 units/mL in NaCl New Bag 04/19/2019 1:28 PM INSPECTOR BALANCE TRUING Continuous Infusion: Per Instructions PRN, Starting on Fri04/19/19 at 1212, Anesthesia Intra-op New Bag 04/19/2019 12:12 PM INSPECTOR BALANCE TRUING lactated ringers New Bag 04/19/2019 8:50 AM INSPECTOR BALANCE TRUING intravenous, Continuous Infusion: Per Instructions PRN, Starting on Fri04/19/19 at 0850, Anesthesia Intra-op lactated ringers New Bag 04/19/2019 9:23 AM INSPECTOR BALANCE TRUING intravenous, Continuous Infusion: Per Instructions PRN, Starting on Fri04/19/19 at 0923, Anesthesia Intra-op ondansetron (PF) injection (ZOFRAN) Given 04/19/2019 10:31 AM INSPECTOR BALANCE TRUING 4 mg intravenous, As needed, Starting on Fri04/19/19 at 1031, Anesthesia Intra-op phenylephrine 80 mcg/mL in Rate/Dose 04/19/2019 1:21 0.1 mcg/kg/min 7.38 mL/hr NaCl 0.9% 250 mL infusion Change PM INSPECTOR BALANCE TRUING Continuous Infusion: Per Instructions PRN, Starting on Fri04/19/19 at 1029, Anesthesia Intra-op Rate/Dose Change 04/19/2019 1:11 PM INSPECTOR BALANCE TRUING 0.2 mcg/kg/min 14.8 mL/hr Rate/Dose Change 04/19/2019 1:06 PM INSPECTOR BALANCE TRUING 0.3 mcg/kg/min 22.1 mL/hr phenylephrine injection Given 04/19/2019 1:44 PM INSPECTOR BALANCE TRUING 100 mcg intravenous, As needed, Starting on Fri04/19/19 at 1341, Anesthesia Intra-op Given 04/19/2019 1:41 PM INSPECTOR BALANCE TRUING 100 mcg potassium chloride IVPB Given 04/19/2019 11:48 AM INSPECTOR BALANCE TRUING 10 mEq Administer over 60 Minutes, As needed, Starting on Fri04/19/19 at 1148, Anesthesia Intra-op propofol injection (DIPRIVAN) Given 04/19/2019 9:33 AM INSPECTOR BALANCE TRUING 30 mg As needed, Starting on Fri04/19/19 at 0906, Anesthesia Intra-op Given 04/19/2019 9:18 AM INSPECTOR BALANCE TRUING 40 mg Given 04/19/2019 9:06 AM INSPECTOR BALANCE TRUING 120 mg propofol injection (DIPRIVAN) Given 04/19/2019 10:35 AM INSPECTOR BALANCE TRUING 40 mg intravenous, As needed, Starting on Fri04/19/19 at 1035, Anesthesia Intra-op rocuronium injection (ZEMURON) Given 04/19/2019 10:27 AM INSPECTOR BALANCE TRUING 30 mg As needed, Starting on Fri04/19/19 at 0906, Anesthesia Intra-op Given 04/19/2019 9:06 AM INSPECTOR BALANCE TRUING 50 mg vecuronium injection (NORCURON) Given 04/19/2019 9:06 AM INSPECTOR BALANCE TRUING 10 mg As needed, Starting on Fri04/19/19 at 0906, Anesthesia Intra-op documented in this encounter Additional Health Concerns Assessment Noted Time PHQ-9 Depression Total Score: 11 05/04/2013 4:05 PM CS T documented as of this encounter Care Teams Outside Sales Associate Relationship Specialty Start Date End Date Elsewhere, Pcp PCP - General Internal Medicine 07/27/18 documented as of this encounter
--- OUTSIDE RECORDS SUMMARY | 2022-02-06 06:51 | XMS_ITS | Encounter Summary ---
:1955 Author Organization [facility] Address [address] [place] [address] Care Team Providers Name Role Phone Elsewhere, Pcp Primary Care Provider Unavailable Reason for Visit Appointment Request (Routine) - Closed Specialty Diagnoses / Procedures Referred By Contact Refer red To Contact Cardiovascular Disease Porfirio Villegas M.D. [address] [place] [address] Referral ID Status Reason Start Date Expiration Date Visits Requ ested Visits Authorized [id number] Closed 01/25/2019 01/25/2020 1 1 Encounter Details Date Type Department Care Team Description 02/26/2019 Office Visit Department of Newton Villegas Cardiovascular Medicine Porfirio (SISI C) (Primary Dx) in [facility] nasim Kellogg [address] [facility] [address] [place] [address] [place], [place] [phone] Social History Tobacco Use Types Packs/Day Years [...] do you attend sabianism or Never 2018 alevism services? Do you [...] (218 lb 0.6 oz) 02/26/2019 1:12 PM PAPER CARRIER Height 165.6 cm (5' 5.2) 02/26/2019 1:12 PM PAPER CARRIER Body Mass Index 36.06 02/26/2019 1:12 PM PAPER CARRIER documented in this encounter Progress Notes Porfirio [...] or concerns arise. Reviewed with Dr. Yeager. R CARRIER documented in this encounter Plan of Treatment Not on filedocumented as of this encounter Visit Diagnoses Diagnosis Atrial Fibrillation Unspecified - Primar y documented in this encounter Additional Health Concerns Assessment Noted Time PHQ-9 Depression Total Score: 11 05/04/2013 4:05 PM CS T documented as of this encounter Care Teams Power Screwdriver Operator Relationship Specialty Start Date End Date Elsewhere, Pcp PCP - General Internal Medicine 07/27/18 documented as of this encounter
--- OUTSIDE RECORDS SUMMARY | 2022-02-06 06:51 | XMS_ITS | Encounter Summary ---
:1955 Author Organization [facility] Address [address] [place] [address] Care Team Providers Name Role Phone Elsewhere, Pcp Primary Care Provider Unavailable Encounter Details Date Type Department Care Team Description 04/19/2019 Surgery Division of Cardiovascular Carole Yeager, ABLATION - PVI Diseases in [facility] [address] [facility] [address] [place] [id number] [phone] (Wo rk) Social History Tobacco Use Types [...] do you attend mormonism or Never 2018 episcopalian services? Do you [...] Comments Blood Pressure 147/103 04/19/2019 8:35 AM ELECTRONIC FIELD SERVICE ENGINEER Pulse - - Temperature - - Respiratory Rate 16 04/19/2019 8:35 AM ELECTRONIC FIELD SERVICE ENGINEER Oxygen Saturation 94% 04/19/2019 8:35 AM ELECTRONIC FIELD SERVICE ENGINEER Inhaled Oxygen Concentration - - Weight 98.4 kg (216 lb 14.9 oz) 04/19/2019 8:35 AM ELECTRONIC FIELD SERVICE ENGINEER Height 165.6 cm (5' 5.2) 04/19/2019 8:35 AM ELECTRONIC FIELD SERVICE ENGINEER Body Mass Index 35.85 04/19/2019 8:35 AM ELECTRONIC FIELD SERVICE ENGINEER documented in this encounter Discharge Summaries Tucker Rutherford P.A.-C. - 04/21/2019 10:04 AM CST Images from the original note were not included. DISCHARGE SUMMARY BRIEF OVERVIEW Discharge Provider: Marla Yeager M.B.B.S. Primary Care Providers: Elsewhere, Pcp (General) [address] [place] [id number] Primary Care Provider Phone Number: None Primary [...] HOSPITAL COURSE Iris Metcalf was discharged from [facility] following an ablation performed by Dr. [...] will occur in approximately 3 months at [facility] in Heart Rhythm Services. Testing at that time will include a 24 hr Holter monitor, ECG, echocardiogram, and cardiac Ct. Patient was also instructed to follow up with Primary Care locally in the next 7-10 days for post hospital follow up. Discharge instructions were provided to the patient and caregiver(s). Juan J Rutherford P.A.-C. TRONIC FIELD SERVICE ENGINEER documented in this encounter Discharge Instructions Discharge InstructionsHiTucker fish P.A.-C. - 04/21/2019 11:05 AM ELECTRONIC FIELD SERVICE ENGINEER Hospital Problems as of 04/21/2019 1. * [...] 4:00 p.m., contact the Electrophysiology Service at [phone]. For questions occurring after business hours, on weekends, nights, or holidays call [phone] and ask for Electrophysiology Dairy Specialist. General Follow-Up: You should follow up locally with your primary care provider in approximately 2 weeks for post hospitalization follow-up. Take a copy of the dismissal summary from [facility] to your provider. [facility] Follow-Up: A follow-up appointment will be scheduled for you in 3 months in the Heart Rhythm Center or Cardiovascular Exam Room. You will be contacted by [facility] to set up the follow up. Tests will include the following: electrocardiogram, 24-hour Holter monitor, transthoracic echocardiogram, and CT scan of heart. Our appointment coordinators will be contacting you. If you have not been notified about your appointment, please contact the electrophysiology recreation program coordinator at . Anticoagulation: Anticoagulation with Coumadin [...] avoid/skip your follow-up appointments, they are important! TRONIC FIELD SERVICE ENGINEER AttachmentsThe following attachments cannot be sent through Care Everywhere. Acetaminophen (By mouth) (Citizen Of [place])Flecainide (By mouth) (Citizen [place])Omeprazole (By mouth) (Citizen [place])documented in this encounter Medications at Time of [...] and Lissette Breen, PharmJohn., R.Ph. Contact Pager [phone] with any questions about this note. TRONIC FIELD SERVICE ENGINEER Tucker Rutherford P.A.-C. - 04/20/2019 11:26 AM [...] have been answered. Juan J Rutherford P.A.-C. TRONIC FIELD SERVICE ENGINEER Porfirio Villegas M.D. - 04/20/2019 8:20 AM [...] monitor, echocardiogram andimaging of the pulmonary veins. Profirio Siontis, M.D. Clinical Cardiac Electrophysiology Fellow 04/20/2019 8:21 AM ELECTRONIC FIELD SERVICE ENGINEER TRONIC FIELD SERVICE ENGINEER Aria Houser APRN C.N.P., M.S.N. - 04/19/2019 [...] the hospital for monitoring while on flecainide. TRONIC FIELD SERVICE ENGINEER Jayda Whitehead, Pharm.D., R.Ph. - 04/19/2019 4:01 [...] and Jayda Haddad Pharm.D., R.Ph. Contact Pager [phone] with any questions about this note. TRONIC FIELD SERVICE ENGINEER documented in this encounter Procedure Notes Porfirio [...] BLOOD LOSS Estimated Blood Loss: 1-75 ml TRONIC FIELD SERVICE ENGINEER documented in this encounter Consult Notes Flores Romeo R.N. 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 Services Used: No Patient Information Primary Caregiver: Other (Comment)(staff at facility) Primary Nurse Name/Number: Bernie Diet/Texture: By mouth Legal Information Legal Decision Maker: Self Advance Directives: Power of Dormitory Supervisor for health care, Power of Dormitory Supervisor for finance Advance Directives Status: Not Activated Power of Dormitory Supervisor for Health Care Agent Name: Ramin Metcalf Power of Dormitory Supervisor for Health Agent Contact Info: [phone] Power of Dormitory Supervisor for Finance Agent Name: Ramin Metcalf Power of Dormitory Supervisor for Finance Agent Contact Info: [phone] Caregiver Information Caregiver Name: [facility] Caregiver Relationship: paid staff Caregiver Caregiver Address: [address] [place] [address] Services Requested Discharge Planning to Facility OBJECTIVE [...] Communication: Can write, Talks, Understands speaking, Understands Citizen [place] Environmental Supports Home Environment: Longterm Care Facility Name: [facility] Anticipated Modifications to the Patient's [...] [facility] Care Facility Name: [facility] Support Systems: Children Assistance Recommended after Discharge: 24 hour supervision Home Care Services: No Anticipated Discharge Destination: [facility] Does the patient need discharge transport arranged?: Yes Has discharge transport been arranged?: Yes What day is the transport expected?: 04/21/19 What time is the transport expected?: 1130 Discharge Provided By: [facility]: [phone] ASSESSMENT / PLAN ??Assessment: Met with the patient to discuss her prior level of care and home going needs. I reviewed my role of Valuer. Patient reviewed her current hospitalization and appears to have understanding, insightand competence of her needs. Patient reviewed her home environment and support system; reviewing that her primary clinical care coordinator - facility staff will be able to provide care to patient post discharge. Patient reports that she feels safe and supported to return [facility]. ?? Patient stated that she has two sons that are her support system. Patient hopes to transition to an assisted living center. Plan: Patient appears to have understanding, insight and competence into patient needs and is appropriately planning for discharge at this time. I recommended the following: none at this time 1. Patient plans to return to [facility] once medically stable for DC 2. Resources given:None 3. CM will continue to follow for any needs that arise. 4. Transportation home will be provided by [facility] [phone]. 5. Reconnections needed [facility]. Patient to return to: Destination - Selection Complete Service Provider Request Status Selected Services Address Phone Number Fax Number [facility] Selected Transitional Care Unit [address] [facility] [address] [phone] Contact: Intake Patient has a MA bedhold. Facility prefers patient return by 1300. Transportation to be provided by [facility] at 1130. Please contact Case Management if [...] arise. Signed by: Flores Romeo R.N. 04/21/2019 TRONIC FIELD SERVICE ENGINEER documented in this encounter Nursing Notes Talya Duffy R.N. - 04/21/2019 10:55 AM CST Pt d/c to [facility]. Facility AVS, discharge summary and MAR report printed, discussed andhanded to pt to relay to SNF. Nurse to nurse report done. Education complete. Teach-back acquired. All questions answered. Transport arranged. Escort requested. TRONIC FIELD SERVICE ENGINEER Mary Cortés R.REdilmaTEdilma, L.R.T. - 04/20/2019 12:42 AM CST Patient is a 64 y.o. female admitted on 04/19/2019 Alert Information: Plan of Care: Patient refused PAP therapy tonight. RT will continue to offer assistance. Principal Problem Atrial Fibrillation Paroxysmal (HCC) Oxygen Therapy $Delivery Method: Room air Arterial Line 04/19/19 Right Radial (Active) Placement Date/Time: 04/19/19 (c) 4076 Procedural Pause Completed: Yes Hand Hygiene Performed Prior to Insertion: Yes Site Prep: Chlorhexidine (Preferred) Sterile Barriers Used : Cap;Gloves;Gown;Large drape;Mask (Clinician);Mask (All others in ro... TRONIC FIELD SERVICE ENGINEER Naren Michaels R.N. - 04/19/2019 9:35 PM CST Shift Goals: Clinical Goals for the Shift: pt remain safe Identify possible barriers to meeting goals/advancing plan of care: pt up with assist and walker End of Shift Summary: met TRONIC FIELD SERVICE ENGINEER Naren Peng R.R.T., L.R.T. - 04/19/2019 5:29 PM CST Assist with CPAP TRONIC FIELD SERVICE ENGINEER Robbie Emerson R.N. - 04/19/2019 8:38 AM CST Patient was admitted for ablation/ electrophysiology procedure. Reviewed HPI, preliminary testing and confirmed medications taken this morning. The last dose of Warfarin taken was 04/19/2019. Pain management strategies post-procedure were discussed. All questions were answered. Patient would like family member Ramin updated with procedural updates. The phone number to reach this family member is [phone]. TRONIC FIELD SERVICE ENGINEER documented in this encounter Plan of Treatment Scheduled Referrals Name Type Priority Associated Diagnoses Order [facility] Cardiovascular Disease Outpatient Routine Flutter A trial ([facility]) Expected: - Heart rhythm consult Referral Atrial Fibrillatio n 07/21/2019 (clinic) Paroxysmal ([facility]) (Approximat e), Expires: 04/21/2022 documented as of this encounter Procedures Procedure Name Priority Date/Time Associated Comments Diagnosis ECG Routine 04/21/2019 Results for 10:47 AM ELECTRONIC FIELD SERVICE ENGINEER this procedure are in the results section. PROTHROMBIN TIME (PT), Routine 04/21/2019 6:15 Re sults for P AM ELECTRONIC FIELD SERVICE ENGINEER this procedure are in the results section. CBC WITH DIFFERENTIAL, Routine 04/21/2019 6:15 Re sults for B AM ELECTRONIC FIELD SERVICE ENGINEER this procedure are in the results section. BUN (BLOOD UREA Routine 04/21/2019 6:15 Results f or NITROGEN), S/P AM ELECTRONIC FIELD SERVICE ENGINEER this procedur e are in the results section. POTASSIUM, S/P Routine 04/21/2019 6:15 Results fo r AM ELECTRONIC FIELD SERVICE ENGINEER this procedure are in the results section. MAGNESIUM, S Routine 04/21/2019 6:15 Results for AM ELECTRONIC FIELD SERVICE ENGINEER this procedure are in the results section. CREATININE WITH EGFR, Routine 04/21/2019 6:15 Res ults for S/P AM ELECTRONIC FIELD SERVICE ENGINEER this procedure are in the results section. ECG Routine 04/20/2019 Results for 10:44 PM ELECTRONIC FIELD SERVICE ENGINEER this procedure are in the results section. DX CHEST AP OR PA AND RAD - Timed 04/20/2019 8:18 Res ults for LATERAL 2 VIEWS (for specific AM ELECTRONIC FIELD SERVICE ENGINEER this proced ure dates/times) are in the results section. ECG Routine 04/20/2019 6:42 Results for AM ELECTRONIC FIELD SERVICE ENGINEER this procedure are in the results section. PROTHROMBIN TIME (PT), Routine 04/20/2019 6:34 Re sults for P AM ELECTRONIC FIELD SERVICE ENGINEER this procedure are in the results section. CBC WITH DIFFERENTIAL, Routine 04/20/2019 6:34 Re sults for B AM ELECTRONIC FIELD SERVICE ENGINEER this procedure are in the results section. BUN (BLOOD UREA Routine 04/20/2019 6:34 Results f or NITROGEN), S/P AM ELECTRONIC FIELD SERVICE ENGINEER this procedur e are in the results section. POTASSIUM, S/P Routine 04/20/2019 6:34 Results fo r AM ELECTRONIC FIELD SERVICE ENGINEER this procedure are in the results section. MAGNESIUM, S Routine 04/20/2019 6:34 Results for AM ELECTRONIC FIELD SERVICE ENGINEER this procedure are in the results section. CREATININE WITH EGFR, Routine 04/20/2019 6:34 Res ults for S/P AM ELECTRONIC FIELD SERVICE ENGINEER this procedure are in the results section. GLUCOSE POCT, B Routine 04/19/2019 4:12 Results f or PM ELECTRONIC FIELD SERVICE ENGINEER this procedure are in the results section. POTASSIUM, S/P STAT 04/19/2019 3:42 Results fo r PM ELECTRONIC FIELD SERVICE ENGINEER this procedure are in the results section. MAGNESIUM, S STAT 04/19/2019 3:42 Results for PM ELECTRONIC FIELD SERVICE ENGINEER this procedure are in the results section. PROTHROMBIN TIME (PT), STAT 04/19/2019 2:53 Re sults for P PM ELECTRONIC FIELD SERVICE ENGINEER this procedure are in the results section. ABLATION - ATRIAL Routine 04/19/2019 2:26 Atrial Results for FLUTTER - RIGHT PM ELECTRONIC FIELD SERVICE ENGINEER Fibrillation (HCC) this p rocedure are in the results section. ABLATION - WACA Routine 04/19/2019 2:26 Atrial Results f or PM ELECTRONIC FIELD SERVICE ENGINEER Fibrillation (HCC) this proc edure are in the results section. HEART RHYTHM PROCEDURE Routine 04/19/2019 2:26 Atrial Re sults for PM ELECTRONIC FIELD SERVICE ENGINEER Fibrillation (HCC) this proc edure are in the results section. HEART RHYTHM PROCEDURE Routine 04/19/2019 2:26 Atrial Re sults for PM ELECTRONIC FIELD SERVICE ENGINEER Fibrillation (HCC) this proc edure are in the results section. HEART RHYTHM PROCEDURE Routine 04/19/2019 2:26 Atrial Re sults for PM ELECTRONIC FIELD SERVICE ENGINEER Fibrillation (HCC) this proc edure are in the results section. ABLATION PVI Routine 04/19/2019 2:26 Atrial Results for PM ELECTRONIC FIELD SERVICE ENGINEER Fibrillation (HCC) this proc edure are in the results section. ABG AND LYTES EG6+, Routine 04/19/2019 2:10 Resul ts for POCT, B PM ELECTRONIC FIELD SERVICE ENGINEER this procedure are in the results section. ACT, POCT, B Routine 04/19/2019 2:03 Results for PM ELECTRONIC FIELD SERVICE ENGINEER this procedure are in the results section. GLUCOSE POCT, B Routine 04/19/2019 2:02 Results f or PM ELECTRONIC FIELD SERVICE ENGINEER this procedure are in the results section. ACT, POCT, B Routine 04/19/2019 1:19 Results for PM ELECTRONIC FIELD SERVICE ENGINEER this procedure are in the results section. ABG AND LYTES EG6+, Routine 04/19/2019 Results for POCT, B 12:58 PM ELECTRONIC FIELD SERVICE ENGINEER this procedure are in the results section. ACT, POCT, B Routine 04/19/2019 Results for 12:48 PM ELECTRONIC FIELD SERVICE ENGINEER this procedure are in the results section. GLUCOSE POCT, B Routine 04/19/2019 Results for 12:47 PM ELECTRONIC FIELD SERVICE ENGINEER this procedure are in the results section. ACT, POCT, B Routine 04/19/2019 Results for 12:19 PM ELECTRONIC FIELD SERVICE ENGINEER this procedure are in the results section. PROTHROMBIN TIME (PT), STAT 04/19/2019 Resul ts for P 12:16 PM ELECTRONIC FIELD SERVICE ENGINEER this procedure are in the results section. ACT, POCT, B Routine 04/19/2019 Results for 11:55 AM ELECTRONIC FIELD SERVICE ENGINEER this procedure are in the results section. ACT, POCT, B Routine 04/19/2019 Results for 11:27 AM ELECTRONIC FIELD SERVICE ENGINEER this procedure are in the results section. ACT, POCT, B Routine 04/19/2019 Results for 11:05 AM ELECTRONIC FIELD SERVICE ENGINEER this procedure are in the results section. PROTHROMBIN TIME (PT), STAT 04/19/2019 Resul ts for P 10:46 AM ELECTRONIC FIELD SERVICE ENGINEER this procedure are in the results section. CBC WITH DIFFERENTIAL, STAT 04/19/2019 Resul ts for B 10:46 AM ELECTRONIC FIELD SERVICE ENGINEER this procedure are in the results section. BASIC METABOLIC PANEL, STAT 04/19/2019 Resul ts for S/P 10:46 AM ELECTRONIC FIELD SERVICE ENGINEER this procedure are in the results section. TYPE AND SCREEN STAT 04/19/2019 Results for 10:45 AM ELECTRONIC FIELD SERVICE ENGINEER this procedure are in the results section. GLUCOSE POCT, B Routine 04/19/2019 Results for 10:44 AM ELECTRONIC FIELD SERVICE ENGINEER this procedure are in the results section. ACT, POCT, B Routine 04/19/2019 Results for 10:41 AM ELECTRONIC FIELD SERVICE ENGINEER this procedure are in the results section. ECHO - INTRAPROCEDURAL Routine 04/19/2019 8:52 Re sults for IMAGES ONLY AM ELECTRONIC FIELD SERVICE ENGINEER this procedure are in the results section. INR, POCT, B Routine 04/19/2019 8:37 Results for AM ELECTRONIC FIELD SERVICE ENGINEER this procedure are in the results section. GLUCOSE POCT, B Routine 04/19/2019 8:37 Results f or AM ELECTRONIC FIELD SERVICE ENGINEER this procedure are in the results section. [...] CDT For the complete report, see the [employer] Documents. Final Impressions 1. Echocardiogram performed per [...] 08/19/2019 For the complete report, see the [employer] Documents. Final Impressions 1. Echocardiogram performed per [...] ECHO PROCEDURES HOLTER MONITOR - IN CLINIC WHARF WORKER (08/18/2019 10:48 AM CDT) [facility] gist Method Time Signature SVE Max Per [id number] HOLTER Hour Time SENTINEL SVE Max Per 2 count HOLTER Hour SENTINEL VE Total Beats 1 count HOLTER SENTINEL VE Percent 0 percent HOLTER Beats SENTINEL Mean Heart 66 bpm HOLTER Rate SENTINEL VT Runs 0 count HOLTER SENTINEL SVE Total 5 count HOLTER Beats SENTINEL Max Heart Rate 83 bpm HOLTER SENTINEL AF Count 0 count HOLTER SENTINEL Min Heart Rate [id number] HOLTER Time SENTINEL Recording Date [id number] HOLTER SENTINEL Tachycardia 0 count HOLTER Runs SENTINEL Holter Pauses 0 count HOLTER SENTINEL SVT Runs 0 count HOLTER SENTINEL Bradycardia 0 count HOLTER Runs SENTINEL Analysis Date 20,200,529 HOLTER SENTINEL Min Heart Rate 54 bpm HOLTER SENTINEL VE Max Per [id number] HOLTER Hour Time SENTINEL SVE Percent 0 percent HOLTER Beats SENTINEL VE Max Per 1 count HOLTER Hour SENTINEL Max Heart Rate [id number] HOLTER Time SENTINEL Specimen (Source) Anatomical Collection Method Collection Time Re ceived Time Location / / Volume Laterality 08/18/2019 10:49 AM CDT Narrative This result has an attachment that is no t available. Tucker Rutherford P.A.-C. CV CARDIAC SERVICES PROCEDUR ES Performing Organization Address [facility] Phon e Number HOLTER SENTINEL HOLTER SENTINEL NA ECG 12 Lead (08/18/2019 10:23 AM CDT) [facility] gist Method Time Signature Ventricular 66 BPM MUSE Rate ECG/Min NV Interval 202 ms MUSE QRSD Interval 118 ms MUSE QT Interval 480 ms MUSE QTC Interval 503 ms MUSE P Ronald 73 degrees MUSE R Ronald 94 degrees MUSE T Wave Ronald 47 degrees MUSE CODED DIAGNOSIS MUSE Semi-Urgent [...] Rutherford P.A.-C. ECG ORDERABLES Performing Organization Address [facility] Code Phon e Number MUSE MUSE NA [...] thoracic spine. Cholecystectomy clips se en on net developer consultant images. GUIDELINES FOR FOLLOW-UP of newly detect [...] thoracic spine. Cholecystectomy clips se en on net developer consultant images. GUIDELINES FOR FOLLOW-UP of newly detect [...] PROCEDURES ECG 12 Lead (04/21/2019 10:47 AM ELECTRONIC FIELD SERVICE ENGINEER) P athologist Signature Ventricular Rate 73 BPM MUSE ECG/Min NV Interval 204 ms MUSE QRSD Interval 110 ms MUSE QT Interval 414 ms MUSE QTC Interval 456 ms MUSE P Ronald 69 degrees MUSE R Ronald 104 degrees MUSE T Wave Ronald 27 degrees MUSE Specimen Anatomical Collection Method Collection Time Receive d Time (Source) Location / / Volume Laterality 04/21/2019 10:47 04/21/2019 AM ELECTRONIC FIELD SERVICE ENGINEER 10:55 AM ELECTRONIC FIELD SERVICE ENGINEER Impressions MUSE - 04/21/2019 10:55 AM ELECTRONIC FIELD SERVICE ENGINEER Normal sinus rhythm with 1st degree A-V [...] MUSE MUSE NA Magnesium (04/21/2019 6:15 AM ELECTRONIC FIELD SERVICE ENGINEER) P athologist Signature Magnesium, S 2.0 1.7 - 2.3 04/21/2019 DTL mg/dL 7:39 AM ELECTRONIC FIELD SERVICE ENGINEER Specimen Anatomical Collection Method Collection Time Receive d Time (Source) Location / / Volume Laterality Blood (Blood, 04/21/2019 6:15 AM 04/21/19 20 6:39 Venous) ELECTRONIC FIELD SERVICE ENGINEER AM ELECTRONIC FIELD SERVICE ENGINEER Tucker Rutherford P.A.-C. LAB BLOOD ADD-ON Performing Organization Address City/State/ZIP Code Phon e Number [facility] - [address] [place], [place] [address] [facility] [place] [place] [address] Laboratories-[facility] [address] [facility] (ABNORMAL) Prothrombin Time (PT) (04/21/2019 6:15 AM ELECTRONIC FIELD SERVICE ENGINEER) Patholo gist Method Time Signature Prothrombin 28.6 (H) 9.4 - 12.5 04/21/2019 DTL Time, P sec 6:54 AM ELECTRONIC FIELD SERVICE ENGINEER INR 2.6 0.9 - 1.1 04/21/2019 DTL 6:54 AM ELECTRONIC FIELD SERVICE ENGINEER Comment: ----ADDITIONAL INFORMATION---- Standard intensity warfarin therapeutic range: 2.0 to 3.0 ?? High intensity warfarin therapeutic rang e: 2.5 to 3.5 Specimen Anatomical Collection Method Collection Time Receive d Time (Source) Location / / Volume Laterality Blood (Blood, 04/21/2019 6:15 AM 04/21/19 20 6:39 Venous) ELECTRONIC FIELD SERVICE ENGINEER AM ELECTRONIC FIELD SERVICE ENGINEER Aria Houser APRN, C.N.P., M.S.N. LAB BLOOD ADD-ON Performing Organization Address City/State/ZIP Code Phon e Number [facility] - [address] [place], [place] [address] [facility] [place] [place] [address] Laboratories-[facility] [address] (ABNORMAL) CBC with Differential, Blood (04/21/2019 6:15 AM ELECTRONIC FIELD SERVICE ENGINEER) [facility] Method Time Signature Hemoglobin 12.1 11.6 - 04/21/2019 DTL 15.0 g/dL 6:45 AM ELECTRONIC FIELD SERVICE ENGINEER Hematocrit 38.0 35.5 - 04/21/2019 DTL 44.9 % 6:45 AM ELECTRONIC FIELD SERVICE ENGINEER Erythrocytes 4.03 3.92 - 04/21/2019 DTL 5.13 6:45 AM ELECTRONIC FIELD SERVICE ENGINEER x10(12)/L MCV 94.3 78.2 - 04/21/2019 DTL 97.9 fL 6:45 AM ELECTRONIC FIELD SERVICE ENGINEER RBC Distrib Width 12.3 12.2 - 04/21/2019 DTL 16.1 % 6:45 AM ELECTRONIC FIELD SERVICE ENGINEER Platelet Count 296 157 - 371 04/21/2019 DTL x10(9)/L 6:45 AM ELECTRONIC FIELD SERVICE ENGINEER Leukocytes 11.7 (H) 3.4 - 9.6 04/21/2019 DTL x10(9)/L 6:45 AM ELECTRONIC FIELD SERVICE ENGINEER Neutrophils 8.57 (H) 1.56 - 04/21/2019 DTL 6.45 6:45 AM ELECTRONIC FIELD SERVICE ENGINEER x10(9)/L Lymphocytes 2.03 0.95 - 04/21/2019 DTL 3.07 6:45 AM ELECTRONIC FIELD SERVICE ENGINEER x10(9)/L Monocytes 0.91 (H) 0.26 - 04/21/2019 DTL 0.81 6:45 AM ELECTRONIC FIELD SERVICE ENGINEER x10(9)/L Eosinophils 0.14 0.03 - 04/21/2019 DTL 0.48 6:45 AM ELECTRONIC FIELD SERVICE ENGINEER x10(9)/L Basophils 0.08 0.01 - 04/21/2019 DTL 0.08 6:45 AM ELECTRONIC FIELD SERVICE ENGINEER x10(9)/L Specimen Anatomical Collection Method Collection Time Receive d Time (Source) Location / / Volume Laterality Blood (Blood, 04/21/2019 6:15 AM 04/21/19 20 6:40 Venous) ELECTRONIC FIELD SERVICE ENGINEER AM ELECTRONIC FIELD SERVICE ENGINEER Marla RendonSEdilma LAB BLOOD ADD-ON Performing Organization Address City/State/ZIP Code Phon e Number [facility] - [address] [place], [place] [address] [place] [address] Laboratories-[address] Creatinine with Estimated GFR (04/21/2019 6:15 AM ELECTRONIC FIELD SERVICE ENGINEER) athologist Signature Creatinine 0.85 0.59 - 04/21/2019 DTL 1.04 mg/dL 7:39 AM ELECTRONIC FIELD SERVICE ENGINEER eGFR-Non 74 >=60 04/21/2019 DTL Black/ mL/min/BSA 7:39 AM ELECTRONIC FIELD SERVICE ENGINEER Palestinian Comment: ----ADDITIONAL INFORMATION---- Estimated GFR calculated using the 2009 CKD_EPI creatinine equation. eGFR-Black/ 85 >=60 mL/min/BSA 2019 7:39 AM ELECTRONIC FIELD SERVICE ENGINEER DTL Comment: ----ADDITIONAL INFORMATION---- Estimated GFR calculated using the 2009 CKD_EPI creatinine equation. Specimen Anatomical Collection Method Collection Time Receive d Time (Source) Location / / Volume Laterality Blood (Blood, 04/21/2019 6:15 AM 04/21/19 20 6:39 Venous) ELECTRONIC FIELD SERVICE ENGINEER AM ELECTRONIC FIELD SERVICE ENGINEER Marla RendonSEdilma LAB BLOOD ADD-ON Performing Organization Address City/State/ZIP Code Phon e Number [facility] - 200 [place], [place] [address] [place] [address] Laboratories-[address] BUN (Blood Urea Nitrogen) (04/21/2019 6:15 AM ELECTRONIC FIELD SERVICE ENGINEER) athologist Signature BUN (Blood Urea 13 6 - 21 04/21/2019 DTL Nitrogen), S mg/dL 7:39 AM ELECTRONIC FIELD SERVICE ENGINEER Specimen Anatomical Collection Method Collection Time Receive d Time (Source) Location / / Volume Laterality Blood (Blood, 04/21/2019 6:15 AM 04/21/19 20 6:39 Venous) ELECTRONIC FIELD SERVICE ENGINEER AM ELECTRONIC FIELD SERVICE ENGINEER Marla RendonSEdilma LAB BLOOD ADD-ON Performing Organization Address City/State/ZIP Code Phon e Number [facility] - [address] [address] [facility] 200 [facility] Potassium (04/21/2019 6:15 AM ELECTRONIC FIELD SERVICE ENGINEER) athologist Signature Potassium, S 5.0 3.6 - 5.2 04/21/2019 DT mmol/L 7:39 AM ELECTRONIC FIELD SERVICE ENGINEER Specimen Anatomical Collection Method Collection Time Receive d Time (Source) Location / / Volume Laterality Blood (Blood, 04/21/2019 6:15 AM 04/21/19 20 6:39 Venous) ELECTRONIC FIELD SERVICE ENGINEER AM ELECTRONIC FIELD SERVICE ENGINEER Marla Pham LAB BLOOD ADD-ON Performing Organization Address City/State/ZIP Code Phon e Number [facility] - [id number] [place] [address] ECG 12 Lead (04/20/2019 10:44 PM ELECTRONIC FIELD SERVICE ENGINEER) athologist Signature Ventricular Rate 82 BPM MUSE ECG/Min NV Interval 198 ms MUSE QRSD Interval 106 ms MUSE QT Interval 374 ms MUSE QTC Interval 436 ms MUSE P Ronald 67 degrees MUSE R Ronald 89 degrees MUSE T Wave Ronald -4 degrees MUSE Specimen Anatomical Collection Method Collection Time Receive d Time (Source) Location / / Volume Laterality 04/20/2019 10:44 04/21/2019 5:08 PM ELECTRONIC FIELD SERVICE ENGINEER AM ELECTRONIC FIELD SERVICE ENGINEER Impressions MUSE - 04/21/2019 5:08 AM ELECTRONIC FIELD SERVICE ENGINEER Normal sinus rhythm ST and T wave [...] and Lateral 2 Views (04/20/2019 8:18 AM ELECTRONIC FIELD SERVICE ENGINEER) Anatomical Region Laterality Modality Chest, Thoracic RST LOS, Thoracic ARZ LOS, Thoracic N/A Digital Radiography FLA LOS Specimen (Source) Anatomical Collection Method Collection Time Re ceived Time Location / / Volume Laterality 04/20/2019 8:19 AM ELECTRONIC FIELD SERVICE ENGINEER Impressions 04/20/2019 8:37 AM ELECTRONIC FIELD SERVICE ENGINEER Since 06/29/2018, decreased lung volumes. No focal consolidation, or pneumothorax. Possible tiny left pleu ral effusion with associated atelectasis. Mild pulmonary vascular con gestion. New cardiomegaly. Aortic calcification. Surgical clips right uppe r quadrant. Narrative 04/20/2019 8:37 AM ELECTRONIC FIELD SERVICE ENGINEER EXAM: ??DX CHEST AP OR PA AND [...] Marla Pham IMG DIAGNOSTIC IMAGING PROCE [facility] ECG 12 Lead (04/20/2019 6:42 AM ELECTRONIC FIELD SERVICE ENGINEER) [facility] Method Time Signature Ventricular 75 BPM MUSE Rate ECG/Min NV Interval 186 ms MUSE QRSD Interval 102 ms MUSE QT Interval 388 ms MUSE QTC Interval 433 ms MUSE P Ronald 72 degrees MUSE R Ronald 97 degrees MUSE T Wave Ronald -127 degrees MUSE CODED Atrial MUSE DIAGNOSIS fibrillation Specimen Anatomical Collection Method Collection Time Receive d Time (Source) Location / / Volume Laterality 04/20/2019 6:42 AM 0 8:54 ELECTRONIC FIELD SERVICE ENGINEER AM ELECTRONIC FIELD SERVICE ENGINEER Impressions MUSE - 04/20/2019 8:54 AM ELECTRONIC FIELD SERVICE ENGINEER Normal sinus rhythm Rightward axis ST and [...] Marla Pham ECG ORDERABLES Performing Organization Address City/[facility]/ZIP Code Phon e Number MUSE MUSE NA (ABNORMAL) Prothrombin Time (PT) (04/20/2019 6:34 AM ELECTRONIC FIELD SERVICE ENGINEER) [facility] [place] Method Time Signature Prothrombin 23.1 (H) 9.4 - 12.5 04/20/2019 DTL Time, P sec 7:26 AM ELECTRONIC FIELD SERVICE ENGINEER INR 2.1 0.9 - 1.1 04/20/2019 DTL 7:26 AM ELECTRONIC FIELD SERVICE ENGINEER Comment: ----ADDITIONAL INFORMATION---- Standard intensity warfarin therapeutic range: 2.0 to 3.0 ?? High intensity warfarin therapeutic rang e: 2.5 to 3.5 Specimen Anatomical Collection Method Collection Time Receive d Time (Source) Location / / Volume Laterality Blood (Blood, 04/20/2019 6:34 AM 04/20/19 20 7:04 Venous) ELECTRONIC FIELD SERVICE ENGINEER AM ELECTRONIC FIELD SERVICE ENGINEER Aria Houser APRN C.NEdilmaP., M.S.N. LAB BLOOD ADD-ON Performing Organization Address City/State/ZIP Code Phon e Number [facility] - [address] [place] [address] [facility] [place] [place] [address] Laboratories-[facility] 200 [facility] (ABNORMAL) CBC with Differential, Blood (04/20/2019 6:34 AM ELECTRONIC FIELD SERVICE ENGINEER) [facility] [place] Method Time Signature Hemoglobin 12.7 11.6 - 04/20/2019 DTL 15.0 g/dL 7:17 AM ELECTRONIC FIELD SERVICE ENGINEER Hematocrit 39.4 35.5 - 04/20/2019 DTL 44.9 % 7:17 AM ELECTRONIC FIELD SERVICE ENGINEER Erythrocytes 4.14 3.92 - 04/20/2019 DTL 5.13 7:17 AM ELECTRONIC FIELD SERVICE ENGINEER x10(12)/L MCV 95.2 78.2 - 04/20/2019 DTL 97.9 fL 7:17 AM ELECTRONIC FIELD SERVICE ENGINEER RBC Distrib Width 12.4 12.2 - 04/20/2019 DTL 16.1 % 7:17 AM ELECTRONIC FIELD SERVICE ENGINEER Platelet Count 362 157 - 371 04/20/2019 DTL x10(9)/L 7:17 AM ELECTRONIC FIELD SERVICE ENGINEER Leukocytes 12.0 (H) 3.4 - 9.6 04/20/2019 DTL x10(9)/L 7:17 AM ELECTRONIC FIELD SERVICE ENGINEER Neutrophils 8.06 (H) 1.56 - 04/20/2019 DTL 6.45 7:17 AM ELECTRONIC FIELD SERVICE ENGINEER x10(9)/L Lymphocytes 2.74 0.95 - 04/20/2019 DTL 3.07 7:17 AM ELECTRONIC FIELD SERVICE ENGINEER x10(9)/L Monocytes 0.93 (H) 0.26 - 04/20/2019 DTL 0.81 7:17 AM ELECTRONIC FIELD SERVICE ENGINEER x10(9)/L Eosinophils 0.17 0.03 - 04/20/2019 DTL 0.48 7:17 AM ELECTRONIC FIELD SERVICE ENGINEER x10(9)/L Basophils 0.10 (H) 0.01 - 04/20/2019 DTL 0.08 7:17 AM ELECTRONIC FIELD SERVICE ENGINEER x10(9)/L Specimen Anatomical Collection Method Collection Time Receive d Time (Source) Location / / Volume Laterality Blood (Blood, 04/20/2019 6:34 AM 04/20/19 20 7:04 Venous) ELECTRONIC FIELD SERVICE ENGINEER AM ELECTRONIC FIELD SERVICE ENGINEER Marla Pham LAB BLOOD ADD-ON Performing Organization Address City/State/ZIP Code Phon e Number [facility] - [address] [place], [place] [address] [facility] [place] [address] Laboratories-[facility] 200 [facility] Creatinine with Estimated GFR (04/20/2019 6:34 AM ELECTRONIC FIELD SERVICE ENGINEER) P athologist Signature Creatinine 0.89 0.59 - 04/20/2019 DTL 1.04 mg/dL 8:15 AM ELECTRONIC FIELD SERVICE ENGINEER eGFR-Non 70 >=60 04/20/2019 DTL Black/ mL/min/BSA 8:15 AM ELECTRONIC FIELD SERVICE ENGINEER Palestinian Comment: ----ADDITIONAL INFORMATION---- Estimated GFR calculated using the 2009 CKD_EPI creatinine equation. eGFR-Black/ 80 >=60 mL/min/BSA 2019 8:15 AM ELECTRONIC FIELD SERVICE ENGINEER DTL Comment: ----ADDITIONAL INFORMATION---- Estimated GFR calculated using the 2009 CKD_EPI creatinine equation. Specimen Anatomical Collection Method Collection Time Receive d Time (Source) Location / / Volume Laterality Blood (Blood, 04/20/2019 6:34 AM 04/20/19 20 7:04 Venous) ELECTRONIC FIELD SERVICE ENGINEER AM ELECTRONIC FIELD SERVICE ENGINEER Marla RendonSEdilma LAB BLOOD ADD-ON Performing Organization Address City/State/ZIP Code Phon e Number [facility] - [address] [place], [place] [address] [facility] [place], [place] [id number] [place] [address] BUN (Blood Urea Nitrogen) (04/20/2019 6:34 AM ELECTRONIC FIELD SERVICE ENGINEER) P athologist Signature BUN (Blood Urea 13 6 - 21 04/20/2019 DTL Nitrogen), S mg/dL 8:15 AM ELECTRONIC FIELD SERVICE ENGINEER Specimen Anatomical Collection Method Collection Time Receive d Time (Source) Location / / Volume Laterality Blood (Blood, 04/20/2019 6:34 AM 04/20/19 20 7:04 Venous) ELECTRONIC FIELD SERVICE ENGINEER AM ELECTRONIC FIELD SERVICE ENGINEER Marla RendonSEdilma LAB BLOOD ADD-ON Performing Organization Address City/State/ZIP Code Phon e Number [facility] - [address] [place], [place] [address] [facility] [place], [place] [id number] [place] [address] Potassium (04/20/2019 6:34 AM ELECTRONIC FIELD SERVICE ENGINEER) athologist Signature Potassium, S 4.7 3.6 - 5.2 04/20/2019 DTL mmol/L 8:15 AM ELECTRONIC FIELD SERVICE ENGINEER Specimen Anatomical Collection Method Collection Time Receive d Time (Source) Location / / Volume Laterality Blood (Blood, 04/20/2019 6:34 AM 04/20/19 20 7:04 Venous) ELECTRONIC FIELD SERVICE ENGINEER AM ELECTRONIC FIELD SERVICE ENGINEER Marla RendonSEdilma LAB BLOOD ADD-ON Performing Organization Address City/State/ZIP Code Phon e Number [facility] - [address] [place], [place] [address] [facility] [place] [address] [facility] [address] Magnesium (04/20/2019 6:34 AM ELECTRONIC FIELD SERVICE ENGINEER) P athologist Signature Magnesium, S 2.1 1.7 - 2.3 04/20/2019 DTL mg/dL 8:15 AM ELECTRONIC FIELD SERVICE ENGINEER Specimen Anatomical Collection Method Collection Time Receive d Time (Source) Location / / Volume Laterality Blood (Blood, 04/20/2019 6:34 AM 04/20/19 20 7:04 Venous) ELECTRONIC FIELD SERVICE ENGINEER AM ELECTRONIC FIELD SERVICE ENGINEER Marla Pham LAB BLOOD ADD-ON Performing Organization Address City/[facility] Phon e Number [facility] - [address] (ABNORMAL) Glucose, POCT (04/19/2019 4:12 PM ELECTRONIC FIELD SERVICE ENGINEER) Analysis Performed At Patho logist Time Signature Glucose, POCT, 230 (H) 70 - 140 04/19/2019 PCLX B mg/dL 4:19 PM ELECTRONIC FIELD SERVICE ENGINEER Last Intake 3-4 hours 04/19/2019 PCLX 4:19 PM ELECTRONIC FIELD SERVICE ENGINEER Specimen Anatomical Collection Method Collection Time Receive d Time (Source) Location / / Volume Laterality Blood 04/19/2019 4:12 PM 0 4:19 ELECTRONIC FIELD SERVICE ENGINEER PM ELECTRONIC FIELD SERVICE ENGINEER Unknown Provider LAB POCT ORDERABLES-MANUAL Performing Organization Address City/[facility] Phon e Number [facility] [address] [place] [address] [place] [address] [facility] [address] (ABNORMAL) Magnesium (04/19/2019 3:42 PM ELECTRONIC FIELD SERVICE ENGINEER) P athologist Signature Magnesium, S 1.5 (L) 1.7 - 2.3 04/19/2019 DTL mg/dL 5:03 PM ELECTRONIC FIELD SERVICE ENGINEER Specimen Anatomical Collection Method Collection Time Receive d Time (Source) Location / / Volume Laterality Blood (Blood, 04/19/2019 3:42 PM 04/19/19 20 4:28 Venous) ELECTRONIC FIELD SERVICE ENGINEER PM ELECTRONIC FIELD SERVICE ENGINEER Ana Soto APRN.NEdilmaP., M.S.N. LAB BLOOD ADD-ON Performing Organization Address City/State/ZIP Code Phon e Number [facility] - [address] [place], [place] [address] [place] [id number] [facility] [address] Potassium (04/19/2019 3:42 PM ELECTRONIC FIELD SERVICE ENGINEER) P athologist Signature Potassium, P 3.8 3.6 - 5.2 04/19/2019 STMA mmol/L 4:01 PM ELECTRONIC FIELD SERVICE ENGINEER Specimen Anatomical Collection Method Collection Time Receive d Time (Source) Location / / Volume Laterality Blood (Blood, 04/19/2019 3:42 PM 04/19/19 20 3:49 Venous) ELECTRONIC FIELD SERVICE ENGINEER PM ELECTRONIC FIELD SERVICE ENGINEER Aria Houser APRN, C.N.P., M.S.N. LAB BLOOD ADD-ON Performing Organization Address [facility] Phon e Number [facility] - [address] [address] [address] (ABNORMAL) Prothrombin Time (PT) (04/19/2019 2:53 PM ELECTRONIC FIELD SERVICE ENGINEER) Patholo gist Method Time Signature Prothrombin 29.8 (H) 9.4 - 12.5 04/19/2019 STMA Time, P sec 3:14 PM ELECTRONIC FIELD SERVICE ENGINEER INR 2.7 0.9 - 1.1 04/19/2019 STMA 3:14 PM ELECTRONIC FIELD SERVICE ENGINEER Comment: ----ADDITIONAL INFORMATION---- Standard intensity warfarin therapeutic range: 2.0 to 3.0 ?? High intensity warfarin therapeutic rang e: 2.5 to 3.5 Specimen Anatomical Collection Method Collection Time Receive d Time (Source) Location / / Volume Laterality Blood (Blood, 04/19/2019 2:53 PM 04/19/19 20 3:02 Venous) ELECTRONIC FIELD SERVICE ENGINEER PM ELECTRONIC FIELD SERVICE ENGINEER Tucker Rutherford P.A.-C. LAB BLOOD ADD-ON Performing Organization Address City/[facility] Phon e Number [facility] - [address] [place], [place] [address] [place] [address] Ltac, Located Within [facility]-[address] ABLATION PVI, CARTO, ULTRASOUND GUIDANCE FOR VASCULAR ACCESS, INTRACARDIAC ECHOCARDIOGRAM, ABLATION - WACA, ABLATION - ATRIAL FLUTTER - RIGHT (04/19/2019 2:26 PM ELECTRONIC FIELD SERVICE ENGINEER) Anatomical Region Laterality Modality X-Ray Angiography Specimen (Source) Anatomical Collection Method Collection Time Re ceived Time Location / / Volume Laterality 04/19/2019 10:13 AM ELECTRONIC FIELD SERVICE ENGINEER Narrative 04/20/2019 2:47 PM ELECTRONIC FIELD SERVICE ENGINEER For the complete report, see the [employer] Documents. PROCEDURE TYPES 1. ??ABLATION - PVI [...] 28.37 For the complete report, see the [employer] Documents. Procedure Note Marla Yeager M.B.B.SEdilma - 04/20/2019F ormatting of this note might be different from the original. For the complete report, see the [employer] Documents. PROCEDURE TYPES 1. ABLATION - PVI [...] ABG and Vondates, POCT (04/19/2019 2:10 PM ELECTRONIC FIELD SERVICE ENGINEER) P athologist Signature [facility], [facility] 04/19/2019 PCLX POCT 2:16 PM ELECTRONIC FIELD SERVICE ENGINEER Comment: ----ADDITIONAL INFORMATION---- Performed at the Point of Care pH, POCT 7.42 7.35 - 7.45 04/19/2019 2:16 PM ELECTRONIC FIELD SERVICE ENGINEER PCLX Comment: ----ADDITIONAL INFORMATION---- Performed at the Point of Care pCO2, POCT 44 32 - 45 mm Hg 04/19/2019 2:16 PM ELECTRONIC FIELD SERVICE ENGINEER PC LX Comment: ----ADDITIONAL INFORMATION---- Performed at the Point of Care pO2, POCT 455 (H) 83 - 108 mm Hg 04/19/2019 2:16 PM ELECTRONIC FIELD SERVICE ENGINEER PC LX Comment: ----ADDITIONAL INFORMATION---- Performed at the Point of Care Base, POCT 4 (H) -2 - 3 mmol/L 04/19/2019 2:16 PM ELECTRONIC FIELD SERVICE ENGINEER PC LX Comment: ----ADDITIONAL INFORMATION---- Performed at the Point of Care HCO3, POCT 29 (H) 22 - 26 mmol/L 04/19/2019 2:16 PM ELECTRONIC FIELD SERVICE ENGINEER P CLX Comment: ----ADDITIONAL INFORMATION---- Performed at the Point of Care Sodium, POCT, B 137 135 - 145 mmol/L 04/19/2019 2:16 P M ELECTRONIC FIELD SERVICE ENGINEER PCLX Comment: ----ADDITIONAL INFORMATION---- Performed at the Point of Care Potassium, POCT, B 3.0 (L) 3.6 - 5.2 mmol/L 04/19/2019 2:1 6 PM ELECTRONIC FIELD SERVICE ENGINEER PCLX Comment: ----ADDITIONAL INFORMATION---- Performed at the Point of Care Hematocrit, POCT, B 36.0 35.5 - 44.9 % 04/19/2019 2:16 PM ELECTRONIC FIELD SERVICE ENGINEER PCLX Comment: ----ADDITIONAL INFORMATION---- Performed at the Point of Care Specimen Anatomical Collection Method Collection Time Receive d Time (Source) Location / / Volume Laterality Blood 04/19/2019 2:10 PM 0 2:16 ELECTRONIC FIELD SERVICE ENGINEER PM ELECTRONIC FIELD SERVICE ENGINEER Unknown Provider LAB POCT ORDERABLES - DEVICE Performing Organization Address [facility] Phon e Number [facility] [address] [place] [address] [place] [address] [place] POC [address] (ABNORMAL) ACT (Activated Clotting Time), POCT (04/19/2019 2:03 PM ELECTRONIC FIELD SERVICE ENGINEER) athologist Signature Activated 167 (H) 84 - 139 04/19/2019 PCSM Clotting Time, sec 2:16 PM ELECTRONIC FIELD SERVICE ENGINEER POCT Specimen Anatomical Collection Method Collection Time Receive d Time (Source) Location / / Volume Laterality Blood 04/19/2019 2:03 PM 0 2:16 ELECTRONIC FIELD SERVICE ENGINEER PM ELECTRONIC FIELD SERVICE ENGINEER Unknown Provider LAB POCT ORDERABLES - DEVICE Performing Organization Address [facility] Phon e Number [facility] [address] [place], [place] [address] [place] [address] [place] POC [address] (ABNORMAL) Glucose, POCT (04/19/2019 2:02 PM ELECTRONIC FIELD SERVICE ENGINEER) athologist Signature Glucose, POCT, 193 (H) 70 - 140 04/19/2019 PCLX B mg/dL 2:04 PM ELECTRONIC FIELD SERVICE ENGINEER Specimen Anatomical Collection Method Collection Time Receive d Time (Source) Location / / Volume Laterality Blood 04/19/2019 2:02 PM 0 2:04 ELECTRONIC FIELD SERVICE ENGINEER PM ELECTRONIC FIELD SERVICE ENGINEER Unknown Provider LAB POCT ORDERABLES-MANUAL Performing Organization Address City/[facility] Phon e Number [facility] [address] [place] [address] [place] [address] [place] POC [address] (ABNORMAL) ACT (Activated Clotting Time), POCT (04/19/2019 1:19 PM ELECTRONIC FIELD SERVICE ENGINEER) athologist [facility] Activated 300 (H) 84 - 139 04/19/2019 PCSM Clotting Time, sec 1:30 PM ELECTRONIC FIELD SERVICE ENGINEER POCT Specimen Anatomical Collection Method Collection Time Receive d Time (Source) Location / / Volume Laterality Blood 04/19/2019 1:19 PM 0 1:30 ELECTRONIC FIELD SERVICE ENGINEER PM ELECTRONIC FIELD SERVICE ENGINEER Unknown Provider LAB POCT ORDERABLES - DEVICE Performing Organization Address [facility] Phon e Number [facility] [address] [place], [place] [address] [place] [address] [place] POC [address] [place] [address] (ABNORMAL) ABG and Lytes, POCT (04/19/2019 12:58 PM ELECTRONIC FIELD SERVICE ENGINEER) athologist [facility] Sample Site, [place] 04/19/2019 PCLX POCT 1:04 PM ELECTRONIC FIELD SERVICE ENGINEER Comment: ----ADDITIONAL INFORMATION---- Performed at the Point of Care pH, POCT 7.41 7.35 - 7.45 04/19/2019 1:04 PM ELECTRONIC FIELD SERVICE ENGINEER PCLX Comment: ----ADDITIONAL INFORMATION---- Performed at the Point of Care pCO2, POCT 43 32 - 45 mm Hg 04/19/2019 1:04 PM ELECTRONIC FIELD SERVICE ENGINEER PC LX Comment: ----ADDITIONAL INFORMATION---- Performed at the Point of Care pO2, POCT 160 (H) 83 - 108 mm Hg 04/19/2019 1:04 PM ELECTRONIC FIELD SERVICE ENGINEER PC LX Comment: ----ADDITIONAL INFORMATION---- Performed at the Point of Care Base, POCT 3 -2 - 3 mmol/L 04/19/2019 1:04 PM ELECTRONIC FIELD SERVICE ENGINEER PC LX Comment: ----ADDITIONAL INFORMATION---- Performed at the Point of Care HCO3, POCT 27 (H) 22 - 26 mmol/L 04/19/2019 1:04 PM ELECTRONIC FIELD SERVICE ENGINEER P CLX Comment: ----ADDITIONAL INFORMATION---- Performed at the Point of Care Sodium, POCT, B 137 135 - 145 mmol/L 04/19/2019 1:04 P M ELECTRONIC FIELD SERVICE ENGINEER PCLX Comment: ----ADDITIONAL INFORMATION---- Performed at the Point of Care Potassium, POCT, B 3.3 (L) 3.6 - 5.2 mmol/L 04/19/2019 1:0 4 PM ELECTRONIC FIELD SERVICE ENGINEER PCLX Comment: ----ADDITIONAL INFORMATION---- Performed at the Point of Care Hematocrit, POCT, B 39.0 35.5 - 44.9 % 04/19/2019 1:04 PM ELECTRONIC FIELD SERVICE ENGINEER PCLX Comment: ----ADDITIONAL INFORMATION---- Performed at the Point of Care Specimen Anatomical Collection Method Collection Time Receive d Time (Source) Location / / Volume Laterality Blood 04/19/2019 12:58 04/19/2019 1:04 PM ELECTRONIC FIELD SERVICE ENGINEER PM ELECTRONIC FIELD SERVICE ENGINEER Unknown Provider LAB POCT ORDERABLES - DEVICE Performing Organization Address [facility] Phon e Number [facility] [address] [place] [address] [place]CL[place] [id number] [place] [address] POC 200 [facility] (ABNORMAL) ACT (Activated Clotting Time), POCT (04/19/2019 12:48 PM ELECTRONIC FIELD SERVICE ENGINEER) athologist Signature Activated 369 (H) 84 - 139 04/19/2019 PCSM Clotting Time, sec 1:04 PM ELECTRONIC FIELD SERVICE ENGINEER POCT Specimen Anatomical Collection Method Collection Time Receive d Time (Source) Location / / Volume Laterality Blood 04/19/2019 12:48 04/19/2019 1:04 PM ELECTRONIC FIELD SERVICE ENGINEER PM ELECTRONIC FIELD SERVICE ENGINEER Unknown Provider LAB POCT ORDERABLES - DEVICE Performing Organization Address [facility] Phon e Number [facility] [address] [place], [place] [address] [place] [address] [place] POC [address] [place] [address] (ABNORMAL) Glucose, POCT (04/19/2019 12:47 PM ELECTRONIC FIELD SERVICE ENGINEER) athologist Signature Glucose, POCT, 199 (H) 70 - 140 04/19/2019 PCLX B mg/dL 12:49 PM ELECTRONIC FIELD SERVICE ENGINEER Site [facility] 04/19/2019 PCLX 12:49 PM ELECTRONIC FIELD SERVICE ENGINEER Specimen Anatomical Collection Method Collection Time Receive d Time (Source) Location / / Volume Laterality Blood 04/19/2019 12:47 04/19/2019 PM ELECTRONIC FIELD SERVICE ENGINEER 12:49 PM ELECTRONIC FIELD SERVICE ENGINEER Unknown Provider LAB POCT ORDERABLES-MANUAL Performing Organization Address City/State/ZIP Code Phon e Number [facility] [address] [place] [address] [place] [address] [place] POC [address] (ABNORMAL) ACT (Activated Clotting Time), POCT (04/19/2019 12:19 PM ELECTRONIC FIELD SERVICE ENGINEER) P athologist Signature Activated 341 (H) 84 - 139 04/19/2019 PCSM Clotting Time, sec 12:30 PM ELECTRONIC FIELD SERVICE ENGINEER POCT Specimen Anatomical Collection Method Collection Time Receive d Time (Source) Location / / Volume Laterality Blood 04/19/2019 12:19 04/19/2019 PM ELECTRONIC FIELD SERVICE ENGINEER 12:30 PM ELECTRONIC FIELD SERVICE ENGINEER Unknown Provider LAB POCT ORDERABLES - DEVICE Performing Organization Address [facility] Phon e Number POC [facility] [address] [place], [place] [address] [place] [address] [place] POC [address] (ABNORMAL) Prothrombin Time (PT) (04/19/2019 12:16 PM ELECTRONIC FIELD SERVICE ENGINEER) [facility] Method Time Signature Prothrombin 95.8 (H) 9.4 - 12.5 04/19/2019 STMA Time, P sec 12:49 PM ELECTRONIC FIELD SERVICE ENGINEER INR 8.3 (CH) 0.9 - 1.1 04/19/2019 STMA 12:49 PM ELECTRONIC FIELD SERVICE ENGINEER Comment: ----ADDITIONAL INFORMATION---- Standard intensity warfarin therapeutic range: 2.0 to 3.0 ?? High intensity warfarin therapeutic rang e: 2.5 to 3.5 Specimen Anatomical Collection Method Collection Time Receive d Time (Source) Location / / Volume Laterality Blood (Blood, 04/19/2019 12:16 04/19/2019 Venous) PM ELECTRONIC FIELD SERVICE ENGINEER 12:23 PM ELECTRONIC FIELD SERVICE ENGINEER Aria Houser APRN C.N.P., M.S.N. LAB BLOOD ADD-ON Performing Organization Address City/State/ZIP Code Phon e Number [facility] - [address] [place], [place] [address] [facility] [place] [address] [facility] [address] (ABNORMAL) ACT (Activated Clotting Time), POCT (04/19/2019 11:55 AM ELECTRONIC FIELD SERVICE ENGINEER) P athologist Signature Activated 296 (H) 84 - 139 04/19/2019 PCSM Clotting Time, sec 12:06 PM ELECTRONIC FIELD SERVICE ENGINEER POCT Specimen Anatomical Collection Method Collection Time Receive d Time (Source) Location / / Volume Laterality Blood 04/19/2019 11:55 04/19/2019 AM ELECTRONIC FIELD SERVICE ENGINEER 12:06 PM ELECTRONIC FIELD SERVICE ENGINEER Unknown Provider LAB POCT ORDERABLES - DEVICE Performing Organization Address City/[facility] Phon e Number POC [facility] [address] [place], [place] [address] LABS [place], [place] [id number] [place] [address] (ABNORMAL) ACT (Activated Clotting Time), POCT (04/19/2019 11:27 AM ELECTRONIC FIELD SERVICE ENGINEER) P athologist Signature Activated 353 (H) 84 - 139 04/19/2019 PCSM Clotting Time, sec 11:38 AM ELECTRONIC FIELD SERVICE ENGINEER POCT Specimen Anatomical Collection Method Collection Time Receive d Time (Source) Location / / Volume Laterality Blood 04/19/2019 11:27 04/19/2019 AM ELECTRONIC FIELD SERVICE ENGINEER 11:39 AM ELECTRONIC FIELD SERVICE ENGINEER Unknown Provider LAB POCT ORDERABLES - DEVICE Performing Organization Address [facility] Phon e Number POC [facility] [address] [place], [place] [address] LABS [place], [place] [id number] [place] [address] (ABNORMAL) ACT (Activated Clotting Time), POCT (04/19/2019 11:05 AM ELECTRONIC FIELD SERVICE ENGINEER) P athologist Signature Activated 296 (H) 84 - 139 04/19/2019 PCSM Clotting Time, sec 11:17 AM ELECTRONIC FIELD SERVICE ENGINEER POCT Specimen Anatomical Collection Method Collection Time Receive d Time (Source) Location / / Volume Laterality Blood 04/19/2019 11:05 04/19/2019 AM ELECTRONIC FIELD SERVICE ENGINEER 11:17 AM ELECTRONIC FIELD SERVICE ENGINEER Unknown Provider LAB POCT ORDERABLES - DEVICE Performing Organization Address City/[facility] Phon e Number POC [facility] [address] [place], [place] [address] [place] [address] [place] P[place] [address] (ABNORMAL) Basic Metabolic Panel (04/19/2019 10:46 AM ELECTRONIC FIELD SERVICE ENGINEER) P athologist Signature Potassium, P 3.6 3.6 - 5.2 04/19/2019 [facility] mmol/L 11:18 AM ELECTRONIC FIELD SERVICE ENGINEER Sodium, P 139 135 - 145 04/19/2019 [facility] mmol/L 11:18 AM ELECTRONIC FIELD SERVICE ENGINEER Chloride, P 100 98 - 107 04/19/2019 [facility] mmol/L 11:18 AM ELECTRONIC FIELD SERVICE ENGINEER Bicarbonate, P 25 22 - 29 04/19/2019 [facility] mmol/L 11:18 AM ELECTRONIC FIELD SERVICE ENGINEER Anion Gap, P 14 7 - 15 04/19/2019 [facility] 11:18 AM ELECTRONIC FIELD SERVICE ENGINEER BUN (Blood Urea 12 6 - 21 04/19/2019 [facility] Nitrogen), P mg/dL 11:18 AM ELECTRONIC FIELD SERVICE ENGINEER Creatinine 0.76 0.59 - 04/19/2019 [facility] 1.04 mg/dL 11:18 AM ELECTRONIC FIELD SERVICE ENGINEER eGFR-Black/Afric >90 >=60 04/19/2019 [facility] an Palestinian mL/min/BSA 11:18 AM ELECTRONIC FIELD SERVICE ENGINEER Comment: ----ADDITIONAL INFORMATION---- Estimated GFR calculated using the 2009 CKD_EPI creatinine equation. eGFR Non-Black/ 84 >=60 mL/min/BSA 04/19/2019 11:18 AM ELECTRONIC FIELD SERVICE ENGINEER [facility] Comment: ----ADDITIONAL INFORMATION---- Estimated GFR calculated using the 2009 CKD_EPI creatinine equation. Calcium, Total, P 8.8 8.8 - 10.2 mg/dL 04/19/2019 11:1 8 AM ELECTRONIC FIELD SERVICE ENGINEER [facility] Glucose, P 210 (H) 70 - 140 mg/dL 04/19/2019 11:18 AM ELECTRONIC FIELD SERVICE ENGINEER [facility] Specimen Anatomical Collection Method Collection Time Receive d Time (Source) Location / / Volume Laterality Blood (Blood, 04/19/2019 10:46 04/19/2019 Venous) AM ELECTRONIC FIELD SERVICE ENGINEER 11:01 AM ELECTRONIC FIELD SERVICE ENGINEER Renetta Greer APRN, C.N.P., D.N.P. LAB BLOOD ADD-ON Performing Organization Address City/State/ZIP Code Phon e Number [facility] - [address] [place], [place] [address] [place] [address] Laboratories-[facility] [address] (ABNORMAL) CBC with Differential, Blood (04/19/2019 10:46 AM ELECTRONIC FIELD SERVICE ENGINEER) [facility] g[facility] Method Time Signature Hemoglobin 13.6 11.6 - 04/19/2019 [facility] 15.0 g/dL 11:10 AM ELECTRONIC FIELD SERVICE ENGINEER Hematocrit 40.1 35.5 - 04/19/2019 [facility] 44.9 % 11:10 AM ELECTRONIC FIELD SERVICE ENGINEER Erythrocytes 4.42 3.92 - 04/19/2019 [facility] 5.13 11:10 AM ELECTRONIC FIELD SERVICE ENGINEER x10(12)/L MCV 90.7 78.2 - 04/19/2019 [facility] 97.9 fL 11:10 AM ELECTRONIC FIELD SERVICE ENGINEER RBC Distrib Width 11.9 (L) 12.2 - 04/19/2019 [facility] 16.1 % 11:10 AM ELECTRONIC FIELD SERVICE ENGINEER Platelet Count 359 157 - 371 04/19/2019 [facility] x10(9)/L 11:10 AM ELECTRONIC FIELD SERVICE ENGINEER Leukocytes 9.0 3.4 - 9.6 04/19/2019 [facility] x10(9)/L 11:10 AM ELECTRONIC FIELD SERVICE ENGINEER Neutrophils 5.07 1.56 - 04/19/2019 [facility] 6.45 11:10 AM ELECTRONIC FIELD SERVICE ENGINEER x10(9)/L Lymphocytes 2.74 0.95 - 04/19/2019 [facility] 3.07 11:10 AM ELECTRONIC FIELD SERVICE ENGINEER x10(9)/L Monocytes 0.65 0.26 - 04/19/2019 [facility] 0.81 11:10 AM ELECTRONIC FIELD SERVICE ENGINEER x10(9)/L Eosinophils 0.40 0.03 - 04/19/2019 [facility] 0.48 11:10 AM ELECTRONIC FIELD SERVICE ENGINEER x10(9)/L Basophils 0.14 (H) 0.01 - 04/19/2019 [facility] 0.08 11:10 AM ELECTRONIC FIELD SERVICE ENGINEER x10(9)/L Specimen Anatomical Collection Method Collection Time Receive d Time (Source) Location / / Volume Laterality Blood (Blood, 04/19/2019 10:46 04/19/2019 Venous) AM ELECTRONIC FIELD SERVICE ENGINEER 11:01 AM ELECTRONIC FIELD SERVICE ENGINEER Renetta Greer APRN, C.N.P., D.N.P. LAB BLOOD ADD-ON Performing Organization Address City/State/ZIP Code Phon e Number [facility] - [address] [place], [place] [address] [facility] [place] [address] Laboratories-[facility] [address] (ABNORMAL) Prothrombin Time (PT) (04/19/2019 10:46 AM ELECTRONIC FIELD SERVICE ENGINEER) [facility] Method Time Signature Prothrombin 58.0 (H) 9.4 - 12.5 04/19/2019 [facility] Time, P sec 11:14 AM ELECTRONIC FIELD SERVICE ENGINEER INR 5.1 (CH) 0.9 - 1.1 04/19/2019 [facility] 11:14 AM ELECTRONIC FIELD SERVICE ENGINEER Comment: ----ADDITIONAL INFORMATION---- Standard intensity warfarin therapeutic range: 2.0 to 3.0 ?? High intensity warfarin therapeutic rang e: 2.5 to 3.5 Specimen Anatomical Collection Method Collection Time Receive d Time (Source) Location / / Volume Laterality Blood (Blood, 04/19/2019 10:46 04/19/2019 Venous) AM ELECTRONIC FIELD SERVICE ENGINEER 11:01 AM ELECTRONIC FIELD SERVICE ENGINEER Ana Pickett APRN.N.P., D.N.P. LAB BLOOD ADD-ON Performing Organization Address City/[facility] Phon e Number [facility] - [address] Type and Screen (with reflex Antibody ID) (04/19/2019 10:45 AM ELECTRONIC FIELD SERVICE ENGINEER) [facility] gist Method Time Signature ABORh A Pos Not 04/19/2019 STRM applicable 11:25 AM ELECTRONIC FIELD SERVICE ENGINEER Antibody Negative Negative 04/19/2019 [facility] Screen 11:40 AM ELECTRONIC FIELD SERVICE ENGINEER Type & Screen 04/22/2019 04/19/2019 STRM Expiration 23:59 11:25 AM ELECTRONIC FIELD SERVICE ENGINEER Testing Krista DEFAULT 04/19/2019 STRM Location 11:00 AM ELECTRONIC FIELD SERVICE ENGINEER Specimen Anatomical Collection Method Collection Time Receive d Time (Source) Location / / Volume Laterality Blood (Arm, 04/19/2019 10:45 04/19/2019 Right) AM ELECTRONIC FIELD SERVICE ENGINEER 11:00 AM ELECTRONIC FIELD SERVICE ENGINEER Renetta Greer APRN, Ana.N.P., D.N.P. LAB BLOOD BANK T EST ORDERABLES Performing Organization Address [facility] Phon e Number [facility] - [address] (ABNORMAL) Glucose, POCT (04/19/2019 10:44 AM ELECTRONIC FIELD SERVICE ENGINEER) P athologist Signature Glucose, POCT, 206 (H) 70 - 140 04/19/2019 PCLX B mg/dL 10:55 AM ELECTRONIC FIELD SERVICE ENGINEER Site ARTLINE 04/19/2019 PCLX 10:55 AM ELECTRONIC FIELD SERVICE ENGINEER Specimen Anatomical Collection Method Collection Time Receive d Time (Source) Location / / Volume Laterality Blood 04/19/2019 10:44 04/19/2019 AM ELECTRONIC FIELD SERVICE ENGINEER 10:55 AM ELECTRONIC FIELD SERVICE ENGINEER Unknown Provider LAB POCT ORDERABLES-MANUAL Performing Organization Address [facility] Phon e Number POC [facility] [address] [place] [address] [place] [address] [place] POC 200 [facility] (ABNORMAL) ACT (Activated Clotting Time), POCT (04/19/2019 10:41 AM ELECTRONIC FIELD SERVICE ENGINEER) P athologist Signature Activated 341 (H) 84 - 139 04/19/2019 PCSM Clotting Time, sec 10:53 AM ELECTRONIC FIELD SERVICE ENGINEER POCT Specimen Anatomical Collection Method Collection Time Receive d Time (Source) Location / / Volume Laterality Blood 04/19/2019 10:41 04/19/2019 AM ELECTRONIC FIELD SERVICE ENGINEER 10:53 AM ELECTRONIC FIELD SERVICE ENGINEER Unknown Provider LAB POCT ORDERABLES - DEVICE Performing Organization Address [facility] Phon e Number POC [facility] [address] [place], [place] [address] [place] [address] [place] POC [address] [place] [address] Echo - Intraprocedural Images Only (04/19/2019 8:52 AM ELECTRONIC FIELD SERVICE ENGINEER) Specimen (Source) Anatomical Location Collection Method / Collectio n Time Received Time / Laterality Volume Narrative CV EIMS - 04/21/2019 8:52 AM ELECTRONIC FIELD SERVICE ENGINEER Echocardiographic images obtained during EP. See EP report for findings. Marla Pham CV ECHO PROCEDURES Performing Organization Address [facility] Phon e Number CV EIMS NA INR, POCT (04/19/2019 8:37 AM ELECTRONIC FIELD SERVICE ENGINEER) P athologist Signature INR, POCT, B 2.4 04/19/2019 PCED 11:59 AM ELECTRONIC FIELD SERVICE ENGINEER Comment: ----ADDITIONAL INFORMATION---- Standard intensity warfarin therapeutic range: 2.0 to 3.0 ?? High intensity warfarin therapeutic rang e: 2.5 to 3.5 Specimen Anatomical Collection Method Collection Time Receive d Time (Source) Location / / Volume Laterality 04/19/2019 8:37 AM 0 ELECTRONIC FIELD SERVICE ENGINEER 11:59 AM ELECTRONIC FIELD SERVICE ENGINEER Unknown Provider LAB POCT ORDERABLES - DEVICE Performing Organization Address City/[facility]/ZIP Code Phon e Number POC [facility] [address] [place] [address] OUTPATIENT [place] [address] [facility] 200 [facility] (ABNORMAL) Glucose, POCT (04/19/2019 8:37 AM ELECTRONIC FIELD SERVICE ENGINEER) P athologist Signature Glucose, POCT, 224 (H) 70 - 140 04/19/2019 PCLX B mg/dL 8:41 AM ELECTRONIC FIELD SERVICE ENGINEER Specimen Anatomical Collection Method Collection Time Receive d Time (Source) Location / / Volume Laterality Blood 04/19/2019 8:37 AM 0 8:41 ELECTRONIC FIELD SERVICE ENGINEER AM ELECTRONIC FIELD SERVICE ENGINEER Unknown Provider LAB POCT ORDERABLES-MANUAL Performing Organization Address [facility] Phon e Number POC [facility] [address] [place] [address] [place] [address] [facility] 200 [facility] documented in this encounter Visit Diagnoses Diagnosis [...] tablet 1,000 mg Given 04/21/2019 9:55 AM ELECTRONIC FIELD SERVICE ENGINEER 1,000 mg (TYLENOL) 1,000 mg, oral, Every 6 hours PRN, mild pain or score 1-3 of 10, Starting on Fri04/19/19 at 1502, Postprocedure (CV) benzocaine-menthol 15-3.6 mg per lozenge 1 Given 04/21 9:55 AM ELECTRONIC FIELD SERVICE ENGINEER 1 lozenge lozenge (CEPACOL) 1 lozenge, oral, Every 4 hours PRN, sore throat, Starting on Fri04/19/19 at 0934, Postprocedure (CV) Given 04/21/2019 4:53 AM ELECTRONIC FIELD SERVICE ENGINEER 1 lozenge Given 04/20/2019 9:14 PM ELECTRONIC FIELD SERVICE ENGINEER 1 lozenge clotrimazole-betamethasone 1-0.05 % Given 04/21/2019 8:36 AM ELECTRONIC FIELD SERVICE ENGINEER 1 application cream 1 application (LOTRISONE) 1 application, topical, 2 times daily, First dose on Fri04/19/19 at 2100, Postprocedure (CV) Given 04/20/2019 8:20 PM ELECTRONIC FIELD SERVICE ENGINEER 1 application Given 04/20/2019 8:49 AM ELECTRONIC FIELD SERVICE ENGINEER 1 application docusate sodium capsule 100 mg (COLACE) Given 04/21/2019 10:29 AM ELECTRONIC FIELD SERVICE ENGINEER 100 mg 100 mg, oral, 2 times daily PRN, constipation, Starting on Fri04/19/19 at 1502, Postprocedure (CV), Do NOT crush or chew. DULoxetine DR capsule 30 mg (CYMBALTA) Given 04/21/2019 8:38 AM ELECTRONIC FIELD SERVICE ENGINEER 30 mg 30 mg, oral, 2 times daily, First dose on Fri04/19/19 at 2100, Postprocedure (CV), See tube feeding guidelines for tube feeding administration instructions. Given 04/20/2019 8:13 PM ELECTRONIC FIELD SERVICE ENGINEER 30 mg Given 04/20/2019 8:46 AM ELECTRONIC FIELD SERVICE ENGINEER 30 mg ferrous sulfate tablet 65 mg of iron Given 04/21/2019 8:37 AM ELECTRONIC FIELD SERVICE ENGINEER 65 mg of iron 65 mg of iron, oral, Daily, First dose on Fri04/20/19 at 0900, Postprocedure (CV) Given 04/20/2019 8:45 AM ELECTRONIC FIELD SERVICE ENGINEER 65 mg of iron flecainide tablet 100 mg (TAMBOCOR) Given 04/21/2019 8:38 AM ELECTRONIC FIELD SERVICE ENGINEER 100 mg 100 mg, oral, 2 times daily, First dose on Fri04/19/19 at 2100 Given 04/20/2019 8:13 PM ELECTRONIC FIELD SERVICE ENGINEER 100 mg Given 04/20/2019 8:45 AM ELECTRONIC FIELD SERVICE ENGINEER 100 mg fluticasone furoate 100 mcg/actuation inhaler Given 8:36 AM ELECTRONIC FIELD SERVICE ENGINEER 1 puff 1 puff (ARNUITY ELLIPTA) 1 puff, inhalation, Daily, First dose on Fri04/20/19 at 0900, Postprocedure (CV), Rinse mouth with water after use to reduce aftertaste and incidence of candidiasis. Do not swallow. Given 04/20/2019 8:48 AM ELECTRONIC FIELD SERVICE ENGINEER 1 puff furosemide injection 20 mg (LASIX) Given 04/20/2019 9:13 AM ELECTRONIC FIELD SERVICE ENGINEER 20 mg 20 mg, intravenous, Once, On Fri04/20/19 at 0700, For 1 dose, Adults: Doses less than 120 mg: IV push over 20 mg/minute. Doses 120 mg or greater: IVPB at 4 mg/minute. Peds/Neonates: Doses less than 120 mg over 0.5 mg/kg/minute. Doses 120 mg or greater: IVPB at 4 mg/minute. furosemide injection 20 mg (LASIX) Given 04/20/2019 1:25 PM ELECTRONIC FIELD SERVICE ENGINEER 20 mg 20 mg, intravenous, Once, On Fri04/20/19 at 1330, For 1 dose, N/a furosemide injection 40 mg (LASIX) Given 04/21/2019 6:30 AM ELECTRONIC FIELD SERVICE ENGINEER 40 mg 40 mg, intravenous, Once, On Fri04/21/19 at 0700, For 1 dose, N/a levothyroxine tablet 25 mcg (SYNTHROID, Given 04/21/2019 6:30 AM ELECTRONIC FIELD SERVICE ENGINEER 25 mcg LEVOTHROID) 25 mcg, oral, Daily before breakfast, First dose on Fri04/20/19 at 0700, Postprocedure (CV) Given 04/20/2019 5:37 AM ELECTRONIC FIELD SERVICE ENGINEER 25 mcg lidocaine 10 mg/mL (1 %) injection 1 Given 04/19/2019 1:46 PM CS T 7 mL Bilateral mL (XYLOCAINE) 1 mL, intradermal, As needed, with any sheath manipulation. (May repeat twice up to 1 mL each time if patient complains of pain or discomfort at injection site), Starting on Fri04/19/19 at 0911, Intraprocedure (CV) Given 04/19/2019 10:15 AM ELECTRONIC FIELD SERVICE ENGINEER 10 mL Othe r magnesium sulfate in water IVPB 2 g New Bag 04/19/2019 6:06 PM ELECTRONIC FIELD SERVICE ENGINEER 2 g 25 mL/hr 2 g, intravenous, at 25 mL/hr, Administer over 120 Minutes, Once, On Fri04/19/19 at 1745, For 1 dose, Over 2 hours. premix bag metFORMIN tablet 500 mg (GLUCOPHAGE) Given 04/21/2019 8:38 AM ELECTRONIC FIELD SERVICE ENGINEER 500 mg 500 mg, oral, 2 times daily with meals, First dose on Fri04/19/19 at 1700 Given 04/20/2019 5:20 PM ELECTRONIC FIELD SERVICE ENGINEER 500 mg Given 04/20/2019 8:46 AM ELECTRONIC FIELD SERVICE ENGINEER 500 mg methyl salicylate-menthol 30-10 % cream 1 application (ICY HOT) 1 application, topical, Every 2 hour PRN, muscle/joint pain, Starting on Fri04/19/19 at 1628, @@ Generic Substitution for Johnny @@ @ metoprolol tartrate tablet 50 mg (LOPRES SOR) Given 04/21/2019 8:37 AM ELECTRONIC FIELD SERVICE ENGINEER 50 mg 50 mg, oral, 2 times daily, First dose on Fri04/19/19 at 2100 Given 04/20/2019 8:13 PM ELECTRONIC FIELD SERVICE ENGINEER 50 mg Given 04/20/2019 8:45 AM ELECTRONIC FIELD SERVICE ENGINEER [address] capsule 40 mg (PriLOSEC) Given 04/21/2019 6:30 AM ELECTRONIC FIELD SERVICE ENGINEER 40 mg 40 mg, oral, Daily before breakfast, First dose on Fri04/21/19 at 0700, Postprocedure (CV), Do NOT crush or chew. Capsule may be opened and the contents taken without crushing or chewing. potassium chloride ER tablet 40 mEq Given 04/19/2019 6:02 PM ELECTRONIC FIELD SERVICE ENGINEER 40 mEq (KLORCON/K-TAB) 40 mEq, oral, Once, [...] 8.6 mg (SENOKOT) Given 04/21/2019 10:29 AM ELECTRONIC FIELD SERVICE ENGINEER 8.6 mg 8.6 mg, oral, As needed, constipation, Starting on Fri04/19/19 at 0930, Postprocedure (CV) simvastatin tablet 20 mg (ZOCOR) Given 04/20/2019 8:13 PM ELECTRONIC FIELD SERVICE ENGINEER 20 mg 20 mg, oral, Daily at bedtime, First dose on Fri04/19/19 at 2100, Postprocedure (CV) Given 04/19/2019 8:12 PM ELECTRONIC FIELD SERVICE ENGINEER 20 mg sodium chloride 0.9 % injection 10 mL 10 mL, intravenous, As needed, line care , Peripheral Intravenous Catheter and Rapid Infusion Catheter, Starting on Fri at 2109, Prior to blood sampling, post blood transfusion or post blood sampling. sodium chloride 0.9 % injection 3 mL Given 04/20/2019 9:15 PM ELECTRONIC FIELD SERVICE ENGINEER 3 mL 3 mL, intravenous, As needed, line care, Peripheral Intravenous Catheter and Rapid Infusion Catheter, Starting on Fri04/20/19 at 2109, Prior to and following infusion and between multiple consecutive infusions. sodium chloride 0.9 % injection 3 mL Given 04/21/2019 8:38 AM ELECTRONIC FIELD SERVICE ENGINEER 3 mL 3 mL, intravenous, Every 12 hours scheduled, First dose on Fri04/21/19 at 0900, Peripheral Intravenous Catheter and Rapid Infusion Catheter: When no infusion to maintain patency. SUMAtriptan tablet 50 mg (IMITREX) Given 04/21/2019 4:44 AM ELECTRONIC FIELD SERVICE ENGINEER 50 mg 50 mg, oral, Every 2 hour PRN, migraine, Starting on Fri04/19/19 at 0930, For 2 doses, Postprocedure (CV), SUMAtriptan oral was interchanged for rizatriptan Given 04/20/2019 11:29 AM ELECTRONIC FIELD SERVICE ENGINEER 50 mg topiramate tablet 25 mg (TOPAMAX) Given 04/21/2019 8:38 AM ELECTRONIC FIELD SERVICE ENGINEER 25 mg 25 mg, oral, Daily, First dose on Fri04/20/19 at 0900, Postprocedure (CV) Given 04/20/2019 8:46 AM ELECTRONIC FIELD SERVICE ENGINEER 25 mg warfarin management (COUMADIN) oral, Daily, [...] 6 mg (COUMADIN) Given 04/19/2019 6:02 PM ELECTRONIC FIELD SERVICE ENGINEER 6 mg 6 mg, oral, Once, On Fri04/19/19 at 1700, For 1 dose warfarin tablet 6 mg (COUMADIN) Given 04/20/2019 5:20 PM ELECTRONIC FIELD SERVICE ENGINEER 6 mg 6 mg, oral, Once, On Fri04/20/19 at 1700, For 1 dose documented in this encounter Active and Recently Administered Medications Times are shown in ELECTRONIC FIELD SERVICE ENGINEER. Scheduled Medication Order 04/19/2019 04/20/2019 04/21/2019 clotrimazole-betamethasone [...] R.N.) 0846 (Given - Provider: Jhony smith REidlmaNEdilma)2012 (Given - Provider: Valerie Jaquez RMary Ann) 0838 (Given - Provider: Talya Duffy RaMry Ann)0945 (MAR Hold - Provider: Transfer Provider, Automatic - Reason: Patient not available)0954 ([facility] Unhold - Provider: Transfer Provider, [...] Provider, Automatic - Reason: Patient not available)0954 ([facility] Unhold - Provider: Transfer Provider, Automatic) 65 mg of iron, oral, Daily, First dose o n Fri04/20/19 at 0900, Postprocedure (CV) flecainide tablet 100 mg (TAMBOCOR) 2011 (Given - Prov ider: Naren Michaels REdilmaNEdilma) 0845 (Given - Provider: Jhony smith REdilmaNEdilma)2012 (Given - Provider: Valerie Jaquez REdilmaNEidlma) 0838 (Given - Provider: Talya tierney REdilmaNEdilma)0945 ([facility] Hold - Provider: Transfer Provider, Automatic - Reason: Patient not available)0954 ([facility] Unhold - Provider: Transfer Provider, Automatic) 100 mg, oral, 2 times daily, First dose on Fri04/19/19 at 2100 fluticasone furoate 100 mcg/actuation inhaler 1 puff (ARNUIT Y ELLIPTA) 0848 (Given - Provider: Jhony Diego RMary Ann) 0836 (Given - Provider: Talya Duffy REdilmaNEdilma)0945 ([facility] Hold - Provider: Transfer Provider, Automatic - Reason: Patient not available)0954 ([facility] Unhold - Provider: Transfer Provider, [...] Provider, Automatic - Reason: Patient not available)0954 ([facility] Unhold - Provider: Transfer Provider, [...] 1802 (Given - Pro vider: Jhony Diego RManjete.) 0846 (Given - Provider: Jhony smith R.N.)1720 (Given - Provider: Jhony Diego REdilmaN.) 0838 (Given - Provider: Talya tierney R.N.)0945 (MAY Hold - Provider: Transfer Provider, Automatic - Reason: Patient not available)0954 ([facility] Unhold - Provider: Transfer Provider, [...] Provider, Automatic - Reason: Patient not available)0954 ([facility] Unhold - Provider: Transfer Provider, Automatic) 50 mg, oral, 2 times daily, First dose on Fri04/19/[address] capsule 40 mg (PriLOSEC) 0630 (Given - Provider: Candy Deluna REdilmaN.)0945 ([facility] Hold - Provider: Transfer Provider, Automatic - Reason: Patient not available)0954 ([facility] Unhold - Provider: Transfer Provider, [...] (Given - Provider: Valerie Jaquez REdilmaNEdilma) 0945 ([facility] Hold - Provider: Transfer Provider, Automatic - Reason: Patient not available)0954 ([facility] Unhold - Provider: Transfer Provider, Automatic) 20 mg, oral, Daily at bedtime, First dos e on Fri04/19/19 at 2100, Postprocedure (CV) sodium chloride 0.9 % injection 3 mL 0838 (Given - Provider: Talya Duffy REdilmaNEdilma)0945 ([facility] Hold - Provider: Transfer Provider, Automatic - Reason: Patient not available)0954 ([facility] Unhold - Provider: Transfer Provider, Automatic) 3 mL, intravenous, Every 12 hours schedu led, First dose on Fri04/21/19 at 0900, Peripheral Intravenous Catheter and Rapid Infusion Catheter: When no infusion to maintain patency. topiramate tablet 25 mg (TOPAMAX) 0846 ( Given - Provider: Jhony Diego R.N.) 0838 (Given - Provider: Talya tierney R.N.)0945 ([facility] Hold - Provider: Transfer Provider, Automatic - Reason: Patient not available)0954 ([facility] Unhold - Provider: Transfer Provider, Automatic) 25 mg, oral, Daily, First dose on Fri04/20/19 at 0900, Postproce dure (CV) warfarin management (COUMADIN) 1700 (Due) 0 945 ([facility] Hold - Provider: Transfer Provider, Automatic - Reason: Patient not available)0954 ([facility] Unhold - Provider: Transfer Provider, [...] 04/21/2019 acetaminophen tablet 1,000 mg (TYLENOL) 0945 ([facility] Hold - Provider: Transfer Provider, Automatic - Reason: Patient not available)0954 ([facility] Unhold - Provider: Transfer Provider, Automatic)0955 (Given - Provider: Talya Duffy R.N.) 1,000 mg, oral, Every 6 hours PRN, mild pain or score 1-3 of 10, Starting on Fri04/19/19 at 1502, Postprocedure (CV) albuterol 90 mcg/actuation inhaler 2 puff (PROVENTIL HFA,VENTOLI N HFA) 0945 ([facility] Hold - Provider: Transfer Provider, Automatic - Reason: Patient not available)0953 ([facility] Unhold - Provider: Transfer Provider, Automatic) 2 puff, inhalation, Every 4 hours PRN, s hortness of breath, Starting Fri04/19/19 at 0928, Postprocedure (CV) alum-mag hydroxide-simeth 200-200-20 mg/5 mL suspension 15 mL (M AALOX) 0945 ([facility] Hold - Provider: Transfer Provider, Automatic - Reason: Patient not available)0953 ([facility] Unhold - Provider: Transfer Provider, Automatic) 15 mL, oral, Every 6 hours PRN, indigest ion, Starting Fri04/19/19 at 0928, Postprocedure (CV) atropine injection 0.5 mg 0945 ( [facility] Hold - Provider: Transfer Provider, Automatic - Reason: Patient not available)0954 ([facility] Unhold - Provider: Transfer Provider, [...] 0453 (Given - Provider: Aria Green R.N.)0945 ([facility] Hold - Provider: Transfer Provider, Automatic - Reason: Patient not available)0954 ([facility] Unhold - Provider: Transfer Provider, Automatic)0955 (Given - Provider: Talya Duffy REdilmaNEdilma) 1 lozenge, oral, Every 4 hours PRN, sore throat, Starting on Fri04/19/19 at 0934, Postprocedure (CV) carboxymethylcellulose 0.5 % ophthalmic solution 1 drop (REFRESH PLUS) 0945 ([facility] Hold - Provider: Transfer Provider, Automatic - Reason: Patient not available)0954 ([facility] Unhold - Provider: Transfer Provider, Automatic) 1 drop, both eyes, 4 times daily PRN, dr alber eyes, Starting Fri04/19/19 at 0931, Postprocedure (CV) diazePAM tablet 2 mg (VALIUM) 09 45 ([facility] Hold - Provider: Transfer Provider, Automatic - Reason: Patient not available)0954 ([facility] Unhold - Provider: Transfer Provider, Automatic) 2 mg, oral, Every 2 hour PRN, anxiety, m uscle spasms, Starting 04/19/19 at 1502, For 2 doses, Postprocedure (CV), May repeat once if first dose ineffective. Until sheath removal. docusate sodium capsule 100 mg (COLACE) 0945 ([facility] Hold - Provider: Transfer Provider, Automatic - Reason: Patient not available)0954 ([facility] Unhold - Provider: Transfer Provider, Automatic)1038 (Not Given - Provider: Talya Duffy R.Marlon. - Reason: Other) 100 mg, oral, 2 times daily PRN, constip ation, Starting 04/19/19 at 0934, Postprocedure (CV), Do NOT crush or chew. docusate sodium capsule 100 mg (COLACE) 0945 ([facility] Hold - Provider: Transfer Provider, Automatic - Reason: Patient not available)0954 ([facility] Unhold - Provider: Transfer Provider, Automatic)1029 (Given - Provider: Talya Duffy R.N.) 100 mg, oral, 2 times daily PRN, constip ation, Starting on Fri04/19/19 at 1502, Postprocedure (CV), Do NOT crush or chew. fentaNYL injection 25 mcg (SUBLIMAZE) 0945 ([facility] Hold - Provider: Transfer Provider, Automatic - Reason: Patient not available)0954 ([facility] Unhold - Provider: Transfer Provider, Automatic) 25 mcg, intravenous, Every 2 hour PRN, m oderate pain or score 4-6 of 10, Starting 04/19/19 at 1502, Postprocedure (CV), May repeat once in dosing interval, if patient unable to take oral analgesics or oral analgesics are ineffective fentaNYL injection 50 mcg (SUBLIMAZE) 0945 ([facility] Hold - Provider: Transfer Provider, Automatic - Reason: Patient not available)0954 ([facility] Unhold - Provider: Transfer Provider, [...] Intraprocedure (CV) melatonin tablet 3 mg 0945 ([facility] Hold - Provider: Transfer Provider, Automatic - Reason: Patient not available)0954 ([facility] Unhold - Provider: Transfer Provider, Automatic) 3 mg, oral, Bedtime PRN, sleep, Starting Fri04/19/19 at 0934, Postprocedure (CV) methyl salicylate-menthol 30-10 % cream 1 application (ICY HOT) 0945 ([facility] Hold - Provider: Transfer Provider, Automatic - Reason: Patient not available)0954 ([facility] Unhold - Provider: Transfer Provider, Automatic) 1 application, topical, Every 2 hour PRN , muscle/joint pain, Starting on Fri04/19/19 at 1628, @@ Generic Substitution for BenGay @@@ midazolam (PF) injection 1 mg (VERSED) 0945 ([facility] Hold - Provider: Transfer Provider, Automatic - Reason: Patient not available)0954 ([facility] Unhold - Provider: Transfer Provider, Automatic) 1 mg, intravenous, Every 2 hour PRN, anx iety, muscle spasms, Starting Fri04/19/19 at 1502, For 2 doses, Postprocedure (CV), for over 2 minutes. May repeat x1 dosing interval. Patient must be NPO for 2 hours prior to giving. Until sheath removal. naloxone injection 0.2 mg (NARCAN) 0945 ([facility] Hold - Provider: Transfer Provider, Automatic - Reason: Patient not available)0954 ([facility] Unhold - Provider: Transfer Provider, Automatic) 0.2 mg, intravenous, As needed, respirat ory depression, Starting Fri04/19/19 at 1502, Postprocedure (CV), For respiratory rate less than 8 breaths per minute or RASS score of -3, -4, -5. Apply oxygen to keep oxygen saturations greater than 90% and notify service. oxyCODONE IR tablet 5 mg (ROXICODONE) 0945 ([facility] Hold - Provider: Transfer Provider, Automatic - Reason: Patient not available)0954 ([facility] Unhold - Provider: Transfer Provider, Automatic) 5 mg, oral, Every 6 hours PRN, moderate pain or score 4-6 of 10, Starting Fri04/19/19 at 1502, Postprocedure (CV), If acetaminophen ineffective and patient able to take oral analgesics polyethylene glycol powder packet 17 g (MIRALAX) 0945 ([facility] Hold - Provider: Transfer Provider, Automatic - Reason: Patient not available)0954 ([facility] Unhold - Provider: Transfer Provider, Automatic) 17 g, oral, As needed, constipation, Sta rting Fri04/19/19 at 0929, For 237 days, Postprocedure (CV), Dissolve in 240 mLs (8 ounces) of water prior to giving. Avoid mixing with starch-based thickened liquids. prochlorperazine injection 5 mg (COMPAZINE) 0945 ([facility] Hold - Provider: Transfer Provider, Automatic - Reason: Patient not available)0954 ([facility] Unhold - Provider: Transfer Provider, Automatic) 5 mg, intravenous, Every 6 hours PRN, na usea, vomiting, Starting on Fri04/19/19 at 1744 promethazine injection 6.25 mg (PHENERGAN) 0945 ([facility] Hold - Provider: Transfer Provider, Automatic - Reason: Patient not available)0954 ([facility] Unhold - Provider: Transfer Provider, Automatic) 6.25 mg, intravenous, Every 6 hours PRN, nausea, vomiting, Starting on Fri04/19/19 at 1744 sennosides tablet 8.6 mg (SENOKOT) 0945 ([facility] Hold - Provider: Transfer Provider, Automatic - Reason: Patient not available)0954 ([facility] Unhold - Provider: Transfer Provider, Automatic)1029 (Given - Provider: Talya Duffy R.N.) 8.6 mg, oral, As needed, constipation, S tarting on Fri04/19/19 at 0930, Postprocedure (CV) sodium chloride 0.9 % injection 10 mL 0945 ([facility] Hold - Provider: Transfer Provider, Automatic - Reason: Patient not available)0954 ([facility] Unhold - Provider: Transfer Provider, Automatic) 10 mL, intravenous, As needed, line care , Peripheral Intravenous Catheter and Rapid Infusion Catheter, Starting on Fri04/20/19 at 2109, Prior to blood sampling, post blood transfusion or post blood sampling. sodium chloride 0.9 % injection 3 mL 211 5 (Given - Provider: Valerie Jaquez REdilmaNEdilma) 0945 ([facility] Hold - Provider: Transfer Prov ider, Automatic - Reason: Patient not available)0954 ([facility] Unhold - Provider: Transfer Provider, Automatic) 3 mL, intravenous, As needed, line care, Peripheral Intravenous Catheter and Rapid Infusion Catheter, Starting on Fri04/20/19 at 2109, Prior to and following infusion and between multiple consecutive infusions. SUMAtriptan tablet 50 mg (IMITREX) (COMPLETED) 1129 (Given - Provider: Jhony Diego REdilmaN.) 0444 (Given - Provider: Candy Deluna REdilmaNEdilma) 50 mg, oral, Every 2 hour PRN, migraine, Starting on Fri04/19/19 at 0930, For 2 doses, Postprocedure (CV), SUMAtriptan oral was interchanged for rizatriptan documented in this encounter Additional Health Concerns Assessment Noted Time PHQ-9 Depression Total Score: 11 05/04/2013 4:05 PM CS T documented as of this encounter Care Teams Medical Research Associate Relationship Specialty Start Date End Date Elsewhere, Pcp PCP - General Internal Medicine 07/27/18 documented as of this encounter
--- OUTSIDE RECORDS SUMMARY | 2022-02-06 06:51 | XMS_ITS | Encounter Summary ---
:1955 Author Organization [facility] Address [address] [place] [address] Care Team Providers Name Role Phone Elsewhere, Pcp Primary Care Provider Unavailable Encounter Details Date Type Department Care Team Description 03/01/2019 Clinical Communication Department of [facility] Kell[facility] [address] [facility] [address] [place] [address] [place], [place] [phone] Social History Tobacco Use Types Packs/Day [...] do you attend mandaeism or Never 2018 yazidism services? Do you [...] Porfirio Villegas M.D. - 03/02/2019 6:33 AM BANDOLEER PACKER Our scalp specialist, Rosemarie Quezada, is already working on this. Thank you OLEER PACKER Telephone Encounter - Delisa Lyons - 03/01/2019 2:[address] Villegas, Patient had called and said that you were possibly looking at an ablation for her. Is this somethingwe should start to schedule? Thank you. PASS: Call [place] [phone] ambulatory care for patient - leave vm if no answer OLEER PACKER documented in this encounter Plan of Treatment Not on filedocumented as of this encounter Visit Diagnoses Not on filedocumented in this encounter Additional Health Concerns Assessment Noted Time PHQ-9 Depression Total Score: 11 05/04/2013 4:05 PM CS T documented as of this encounter Care Teams Scorer Helper Relationship Specialty Start Date End Date Elsewhere, Pcp PCP - General Internal Medicine 07/27/18 documented as of this encounter
--- OUTSIDE RECORDS SUMMARY | 2022-02-06 06:51 | XMS_ITS | Encounter Summary ---
:1955 Author Organization [facility] Address [address] [place] [address] Care Team Providers Name Role Phone Elsewhere, Pcp Primary Care Provider Unavailable Reason for Referral MRI/CAT/PET Scan (Routine) - Closed Specialty Diagnoses / Procedures Referred By Contact Refer red To Contact Radiology Diagnoses Atrial Fibrillation Unspecified [facility] Procedures CT Cardiac Angiogram Pulmonary Veins with IV M.D. [address] [place] [address] Referral ID Status Reason Start Date Expiration Date Visits Requ ested Visits Authorized [id number] Closed 03/04/2019 03/03/2020 1 1 [facility] CENTER SPECIALIST Outpatient (Routine) - Closed Specialty Diagnoses / Procedures Referred By Contact Refer red To Contact Diagnoses Atrial Fibrillation Unspecified [facility] Procedures ECG 12 Lead M.D. [address] [place] [address] Referral ID Status Reason Start Date Expiration Date Visits Requ ested Visits Authorized [id number] Closed 03/04/2019 03/03/2020 1 1 [facility] C[facility] SPECIALIST Reason for Visit Reason Onset Date Comments schedule PVI ablation with Dr. Chapman 03/04/20 19 Encounter Details Date Type Department Care Team Description 03/04/2019 Clinical Department of [place], schedule PVI Communication Cardiovascular opal Ramirez Dr. [facility] [address] [facility] Marie [address] [place] [phone] Social History Tobacco Use Types Packs/Day Years [...] do you attend christianity or Never 2018 quaker services? Do you [...] for me to proceed? Thank you, Delisa ICE CENTER SPECIALIST Telephone Encounter - Rosemarie Quezada R.N. - 03/04/2019 11:32 AM SERVICE CENTER SPECIALIST PATIENT INFORMATION- This was coordinated with [...] agreement with instructions. All questions were answered. [facility] Service Line [facility] Backup Line PLAN Disposition/Recommendation: protocol orders Education: patient/caller able to teach back Caller agreeable to plan of care: yes The following references were used: patient education resources: title Preparing for Your Heart Rhythm Procedure [id number] and [facility] protocols: title Heart Rhythm Clinic [id number] and Medication Management for Patients Undergoing Heart Ablation and LEft Atrial Appendage Occlusion [id number] [facility] C[facility] SPECIALIST documented in this encounter Plan of Treatment Not on filedocumented as of this encounter Results ECG 12 Lead (04/16/2019 10:49 AM SERVICE CENTER SPECIALIST) [facility] Method Time Signature Ventricular 91 BPM MUSE Rate ECG/Min QRSD Interval 92 ms MUSE QT Interval 360 ms MUSE QTC Interval 442 ms MUSE R [place] 91 degrees MUSE T Wave [place] -80 degrees MUSE CODED Atrial MUSE DIAGNOSIS fibrillation Specimen Anatomical Collection Method Collection Time Receive d Time (Source) Location / / Volume Laterality 04/16/2019 10:49 04/16/2019 AM SERVICE CENTER SPECIALIST 10:55 AM SERVICE CENTER SPECIALIST Impressions MUSE - 04/16/2019 10:55 AM SERVICE CENTER SPECIALIST Atrial fibrillation Rightward axis ST and [...] Pulmonary Veins with IV (04/16/2019 10:12 AM SERVICE CENTER SPECIALIST) Anatomical Region Laterality Modality Cardiac, Cardiovascular RST LOS, N/A Compute d Tomography, Computed Thoracic ARZ LOS, Cardiovascular FLA Godwin ography LOS Specimen (Source) Anatomical Collection Method Collection Time Re ceived Time Location / / Volume Laterality 04/16/2019 10:05 AM SERVICE CENTER SPECIALIST Impressions 04/16/2019 10:21 AM SERVICE CENTER SPECIALIST 1. Normal variant pulmonary vein anatomy [...] infectious or inflammatory. Narrative 04/16/2019 10:21 AM SERVICE CENTER SPECIALIST EXAM: ??CT CARDIAC ANGIOGRAM PULMONARY VEINS WITH IV CONTRAST COMPARISON: ??[facility] CT chest witho ut intravenous contrast 02/05/2012. [...] T8, unchanged. C holecystectomy clips evident on meat passer topogram. Procedure Note Nikunj Bolton M.D. - 04/16/2019Formattin g of this note might be different from the original. EXAM: CT CARDIAC ANGIOGRAM PULMONARY VEI NS WITH IV CONTRAST COMPARISON: [facility] CT chest without intravenous contrast 02/05/2012. FINDINGS: [...] T8, unchanged. C holecystectomy clips evident on meat passer topogram. IMPRESSION: 1. Normal variant pulmonary vein [...] documented as of this encounter Care Teams Calender Machine Operator Relationship Specialty Start Date End Date Elsewhere, Pcp PCP - General Internal Medicine 07/27/18 documented as of this encounter
--- OUTSIDE RECORDS SUMMARY | 2022-02-06 06:51 | XMS_ITS | Encounter Summary ---
:1955 Author Organization [facility] Address [address] [place] [address] Care Team Providers Name Role Phone Elsewhere, Pcp Primary Care Provider Unavailable Reason for Visit Reason Onset Date Comments Plan update 01/25/2019 Communication Encounter Details Date Type Department Care Team Description 01/25/2019 Clinical Department of [facility], Plan update Communication Cardiovascular Porfirio (Communicati on) [facility] [place] [address] [facility] [phone] [place] [phone] [place] [address] Social History Tobacco Use Types Packs/Day Years [...] do you attend buddhism or Never 2018 yazdanism services? Do you [...] this encounter Miscellaneous Notes Telephone Encounter - Yosef Diana Perez - 01/25/2019 1:38 PM CST Sierra from [facility] called as she wondered the plan for patient and at what point would be pacemaker placement. Please call Sierra at [phone] Thank you Diana (Answering for Deepti) DIRECTOR documented in this encounter Plan of Treatment Not on filedocumented as of this encounter Visit Diagnoses Not on filedocumented in this encounter Additional Health Concerns Assessment Noted Time PHQ-9 Depression Total Score: 11 05/04/2013 4:05 PM CS T documented as of this encounter Care Teams Shoe Sticks Repairer Relationship Specialty Start Date End Date Elsewhere, Pcp PCP - General Internal Medicine 07/27/18 documented as of this encounter
--- OUTSIDE RECORDS SUMMARY | 2022-02-06 06:51 | XMS_ITS | Encounter Summary ---
:1955 Author Organization [facility] Address [address] [place] [address] Care Team Providers Name Role Phone Elsewhere, Pcp Primary Care Provider Unavailable Reason for Visit Appointment Request (Routine) - Closed Specialty Diagnoses / Procedures Referred By Contact Refer red To Contact Cardiovascular Disease Diagnoses Atrial Fibrillation Unspecified Referral ID Status Reason Start Date Expiration Date Visits Requ ested Visits Authorized [id number] Closed 03/09/2019 03/08/2020 1 Encounter Details Date Type Department Care Team Description 04/16/2019 Office Visit Department of [place], Atrial Fibrill ation Other Persistent (HCC) (Primary Dx); Cardiovascular Medicine Porfirio, Lenka ertensive Heart Disease With Heart Failure (HCC); in [facility] nasim Kellogg Diabetes Mellitus Type 2 Without Complic ation (HCC) [address] [place] [address] [address] [place] [address] [place], [place] [phone] Social History Tobacco Use Types Packs/Day Years [...] do you attend alevism or Never 2018 jehovah's witness services? Do you belong to any clubs or No 02/26/2019 organizations such as alevism groups, unions, [employer] or athletic groups, or school groups? How [...] Comments Blood Pressure 149/96 04/16/2019 3:55 PM MANAGER CARGO Pulse 88 04/16/2019 3:55 PM MANAGER CARGO Temperature - - Respiratory Rate - - [...] We last met in the clinic in [facility] and at that time we [...] the above and agreement with the plan. GER CARGO documented in this encounter Plan of Treatment [...] as of this encounter Care Teams Process Safety Engineer Relationship Specialty Start Date End Date Elsewhere, Pcp PCP - General Internal Medicine 07/27/18 documented as of this encounter
--- OUTSIDE RECORDS SUMMARY | 2022-02-06 06:51 | XMS_ITS | Encounter Summary ---
:1955 Author Organization [facility] Address [address] [place] [address] Care Team Providers Name Role Phone Elsewhere, Pcp Primary Care Provider Unavailable Reason for Referral Outpatient (Routine) - Closed Specialty Diagnoses / Procedures Referred By Contact Refer red To Contact Diagnoses Flutter Atrial [facility]HCC[facility] 12 Lead M.DEdilma [address] [place] [address] Referral ID Status Reason Start Date Expiration Date Visits Requ ested Visits Authorized [id number] Closed 01/21/2019 01/21/2020 1 1 Reason for Visit Outpatient (Routine) - Closed Specialty Diagnoses / Procedures Referred By Contact Refer red To Contact [facility] Bess Monroy [address] [place] [address] Referral ID Status Reason Start Date Expiration Date Visits Requ ested Visits Authorized [id number] Closed 11/25/2018 11/25/2019 1 1 Encounter Details Date Type Department Care Team Description 01/20/2019 Office Visit Department of Nelly Flutter Atrial (HCC) Cardiovascular Medicine Porfirio (Pr imary Dx) in Clarissa Velasco M.D. [address] [facility] [address] [place] [address] [place], [place] [phone] Social History Tobacco Use Types Packs/Day Years [...] do you attend taoist or Never 2018 hindu services? Do you [...] engage her son, Yaya, who lives in [place]. Please see licensed social worker documentation dated November 24, 2018. Unfortunately, Yaya was not able to make it to the appointment today. At this point, it appears that she is her own decision-maker without anyone formally appointed as a power of tax attorney. However, she identifies her son, Yaya, [...] Results ECG 12 Lead (02/26/2019 1:32 PM EDGE BONDER) [facility] Method Time Signature Ventricular 88 BPM MUSE Rate ECG/Min QRSD Interval 102 ms MUSE QT Interval 358 ms MUSE QTC Interval 433 ms MUSE R [place] 88 degrees MUSE T Wave [place] -89 degrees MUSE CODED Atrial MUSE DIAGNOSIS fibrillation CODED Atrial MUSE DIAGNOSIS fibrillation CODED Atrial flutter MUSE DIAGNOSIS Specimen Anatomical Collection Method Collection Time Receive d Time (Source) Location / / Volume Laterality 02/26/2019 1:32 PM 9 1:46 EDGE BONDER PM EDGE BONDER Impressions MUSE - 02/26/2019 1:46 PM EDGE BONDER Atrial fibrillation ST and T wave abnormality, [...] as of this encounter Care Teams Frame Runner Relationship Specialty Start Date End Date Elsewhere, Pcp PCP - General Internal Medicine 07/27/18 documented as of this encounter
--- OUTSIDE RECORDS SUMMARY | 2022-02-06 06:51 | XMS_ITS | Encounter Summary ---
:1955 Author Organization [facility] Address [address] [place] [address] Care Team Providers Name Role Phone Elsewhere, Pcp Primary Care Provider Unavailable Reason for Referral MRI/CAT/PET Scan (Routine) - Closed Specialty Diagnoses / Procedures Referred By Contact Refer red To Contact Radiology Diagnoses Atrial Fibrillation Unspecified [facility] Procedures CT Cardiac Angiogram Pulmonary Veins with IV M.D. [address] [place] [address] Referral ID Status Reason Start Date Expiration Date Visits Requ ested Visits Authorized [id number] Closed 03/04/2019 03/03/2020 1 1 TIC PROCESS TECHNICIAN Reason for Visit MRI/CAT/PET Scan (Routine) - Closed Specialty Diagnoses / Procedures Referred By Contact Refer red To Contact Radiology Diagnoses Atrial Fibrillation Unspecified [facility] Procedures CT Cardiac Angiogram Pulmonary Veins with IV M.D. [address] [place] [address] Referral ID Status Reason Start Date Expiration Date Visits Requ ested Visits Authorized [id number] Closed 03/04/2019 03/03/2020 1 1 Encounter Details Date Type Department Care Team Description 04/16/2019 Hospital Encounter Department of Siontis, Atrial F ibrillation Radiology, Garett Monroy, ([facility]) Building, in M.D. [place], [place] [address] [facility] [address] [place] [phone] Social History Tobacco Use Types Packs/Day Years [...] do you attend confucianist or Never 2018 caodaism services? Do you [...] context of radiology care priorto contrast/medication administration. TIC PROCESS TECHNICIAN documented in this encounter Plan of Treatment Scheduled Orders Name Type Priority Associated Diagnoses Order S chedule Creatinine, POCT Point of Care STAT STAT for 1 Occurrences Testing-Docked starting 03/25 Device until 0 documented as of this encounter Procedures Procedure Name Priority Date/Time Associated Comments Diagnosis CT CARDIAC RAD - Routine 04/16/2019 10:12 Atrial Fibrillation Res ults for this ANGIOGRAM (most inpatients AM PLASTIC PROCESS TECHNICIAN (HCC) procedure a re in PULMONARY VEINS and all the results WITH IV CONTRAST outpatients) section. CREATININE, POCT, Routine 04/16/2019 9:39 Results for this B AM PLASTIC PROCESS TECHNICIAN procedure are i n the results section. CREATININE, POCT, Routine 04/16/2019 9:39 Results for this B AM PLASTIC PROCESS TECHNICIAN procedure are i n the results section. documented in this encounter Results CT Cardiac Angiogram Pulmonary Veins with IV (04/16/2019 10:12 AM PLASTIC PROCESS TECHNICIAN) Anatomical Region Laterality Modality Cardiac, Cardiovascular RST LOS, N/A Compute d Tomography, Computed Thoracic ARZ LOS, Cardiovascular FLA Godwin ography LOS Specimen (Source) Anatomical Collection Method Collection Time Re ceived Time Location / / Volume Laterality 04/16/2019 10:05 AM PLASTIC PROCESS TECHNICIAN Impressions 04/16/2019 10:21 AM PLASTIC PROCESS TECHNICIAN 1. Normal variant pulmonary vein anatomy with [...] infectious or inflammatory. Narrative 04/16/2019 10:21 AM PLASTIC PROCESS TECHNICIAN EXAM: ??CT CARDIAC ANGIOGRAM PULMONARY VEINS WITH IV CONTRAST COMPARISON: ??[facility] CT chest witho ut intravenous contrast 02/05/2012. [...] T8, unchanged. C holecystectomy clips evident on cleat layer topogram. Procedure Note Nikunj Bolton M.D. - 04/16/2019Formattin g of this note might be different from the original. EXAM: CT CARDIAC ANGIOGRAM PULMONARY VEI NS WITH IV CONTRAST COMPARISON: [facility] CT chest without intravenous contrast 02/05/2012. FINDINGS: [...] T8, unchanged. C holecystectomy clips evident on cleat layer topogram. IMPRESSION: 1. Normal variant pulmonary vein [...] CT PROCEDURES Creatinine, POCT (04/16/2019 9:39 AM PLASTIC PROCESS TECHNICIAN) P athologist Signature Creatinine, 0.8 0.6 - 1.0 04/16/2019 PCDT POCT, B mg/dL 12:52 PM PLASTIC PROCESS TECHNICIAN Comment: ----ADDITIONAL INFORMATION---- Performed at the Point of Care Specimen Anatomical Collection Method Collection Time Receive d Time (Source) Location / / Volume Laterality Blood 04/16/2019 9:39 AM 0 PLASTIC PROCESS TECHNICIAN 12:53 PM PLASTIC PROCESS TECHNICIAN Unknown Provider LAB POCT ORDERABLES - DEVICE Performing Organization Address [facility]/ZIP Code Phon e Number POC [place] [facility] [address] [place] [address] LABS PCDT [facility] [place] [address] [place] [facility] [address] Creatinine, POCT (04/16/2019 9:39 AM PLASTIC PROCESS TECHNICIAN) P athologist Signature eGFR-Black/Afri >90 >=60 04/16/2019 PCMO can Niuean, mL/min/BSA 12:53 PM PLASTIC PROCESS TECHNICIAN POCT Comment: ----ADDITIONAL INFORMATION---- Estimated GFR calculated using the 2009 CKD_EPI creatinine equation. eGFR Non-Black/, 79 >=60 mL/min/BSA 04/16/2019 12:53 PM PLASTIC PROCESS TECHNICIAN PCMO POCT Comment: ----ADDITIONAL INFORMATION---- Estimated GFR calculated using the 2009 CKD_EPI creatinine equation. Specimen Anatomical Collection Method Collection Time Receive d Time (Source) Location / / Volume Laterality Blood 04/16/2019 9:39 AM 0 PLASTIC PROCESS TECHNICIAN 12:53 PM PLASTIC PROCESS TECHNICIAN Unknown Provider LAB POCT ORDERABLES - DEVICE Performing Organization Address [facility] Phon e Number POC [place] [place] [address] [place] [address] OUTPATIENT LABS PCMO [facility] [place] [address] [place] [facility] [address] documented in this encounter Visit Diagnoses Diagnosis Atrial Fibrillation Unspecified documented in this encounter Administered Medications Inactive Administered Medications - up to 3 most recent administrations Medication Order MAR Action Action Date Dose Rate Site iohexol 350 mg iodine/mL solution Given 04/16/2019 9:51 AM PLASTIC PROCESS TECHNICIAN 1 40 mL 1-200 mL (OMNIPAQUE) 1-200 mL, intravenous, Once in imaging, contrast, Starting on Fri04/16/19 at 0920, For 1 dose, Imaging Protocol Orders, Dose per Radiant Medication Guidelines sodium chloride (PF) 0.9 % injection 1-1 00 mL Given 04/16/2019 9:51 AM PLASTIC PROCESS TECHNICIAN 10 mL 1-100 mL, intravenous, Once, On Fri04/16/19 at 0930, For 1 dose, Imaging Protocol Orders documented in this encounter Additional Health Concerns Assessment Noted Time PHQ-9 Depression Total Score: 05/04/2013 4:05 PM CS T documented as of this encounter Care Teams Elevator Operator Relationship Specialty Start Date End Date Elsewhere, Pcp PCP - General Internal Medicine 07/27/18 documented as of this encounter
--- OUTSIDE RECORDS SUMMARY | 2022-02-06 06:51 | XMS_ITS | Encounter Summary ---
:1955 Author Organization [facility] Address [address] [place] [address] Care Team Providers Name Role Phone Elsewhere, Pcp Primary Care Provider Unavailable Encounter Details Date Type Department Care Team Description 03/09/2019 Clinical Communication Department of Shobha, Cardiovascular Medicine [facility] in [facility] M.B.B.S. [address] [facility] [address] [place] [address] [place], [place] [phone] Social History Tobacco Use Types Packs/Day Years [...] do you attend restoration or Never 2018 caodaism services? Do you [...] Lyons - 03/09/2019 10:53 AM CST baseline AL IMPLEMENTATION MANAGER documented in this encounter Plan of Treatment Not on filedocumented as of this encounter Visit Diagnoses Not on filedocumented in this encounter Additional Health Concerns Assessment Noted Time PHQ-9 Depression Total Score: 11 05/04/2013 4:05 PM CS T documented as of this encounter Care Teams Duralumin Metalworker Relationship Specialty Start Date End Date Elsewhere, Pcp PCP - General Internal Medicine 07/27/18 documented as of this encounter
--- OUTSIDE RECORDS SUMMARY | 2022-02-06 06:51 | XMS_ITS | Encounter Summary ---
:1955 Author Organization [facility] Address [address] [place] [address] Care Team Providers Name Role Phone Elsewhere, Pcp Primary Care Provider Unavailable Encounter Details Date Type Department Care Team Description 04/19/2019 Clinical Communication Outpatient Surgery and Alberto Mcgowan Procedural Admissions D, R.N. in [address] [place] [address] [place] [address] Social History Tobacco Use Types Packs/Day Years [...] do you attend alevism or Never 2018 buddhism services? Do you [...] documented as of this encounter Care Teams Cyber Security Manager Relationship Specialty Start Date End Date Elsewhere, Pcp PCP - General Internal Medicine 07/27/18 documented as of this encounter
--- OUTSIDE RECORDS SUMMARY | 2022-02-06 06:51 | XMS_ITS | Encounter Summary ---
:1955 Author Organization [facility] Address [address] [place] [address] Care Team Providers Name Role Phone Elsewhere, Pcp Primary Care Provider Unavailable Reason for Referral Outpatient (Routine) - Closed Specialty Diagnoses / Procedures Referred By Contact Refer red To Contact Diagnoses [facility] F[facility]illation [facility] Trans[facility]ophageal (MICHAEL) M.B.B.S. [address] [place], [place] [address] Referral ID Status Reason Start Date Expiration Date Visits Requ ested Visits Authorized [id number] Closed 04/19/2019 04/18/2020 1 1 ERY ATTENDANT Reason for Visit Outpatient (Routine) - Closed Specialty Diagnoses / Procedures Referred By Contact Refer red To Contact Diagnoses [facility]rial Fibrillation [facility] Transesophageal (MICHAEL) M.B.B.S. [address] [place] [address] Referral ID Status Reason Start Date Expiration Date Visits Requ ested Visits Authorized [id number] Closed 04/19/2019 04/18/2020 1 1 Encounter Details Date Type Department Care Team Description 04/19/2019 Hospital Encounter Department of Liseth Yeager ibrillation Cardiovascular Diseases Marla ([facility] ) in [facility] M.B.B.S. [address] [facility] [address] [place] [address] [phone] Social History Tobacco Use Types Packs/Day Years [...] do you attend buddhism or Never 2018 pentecostalism services? Do you [...] Results for this AND LIMITED DOPPLER AM NURSERY ATTENDANT (HCC) procedur e are in the results section. documented in this encounter Results (MICHAEL) 2D WITH COLOR AND LIMITED DOPPLER (04/19/2019 11:49 AM NURSERY ATTENDANT) Anatomical Region Laterality Modality Other Specimen (Source) Anatomical Collection Method Collection Time Re ceived Time Location / / Volume Laterality 04/19/2019 10:15 AM NURSERY ATTENDANT Narrative 04/20/2019 7:51 AM NURSERY ATTENDANT For the complete report, see the Order-L [...] as of this encounter Care Teams Manager Ent Relationship Specialty Start Date End Date Elsewhere, Pcp PCP - General Internal Medicine 07/27/18 documented as of this encounter
--- OUTSIDE RECORDS SUMMARY | 2022-02-06 06:52 | XMS_ITS | Encounter Summary ---
:1955 Author Organization [facility] Address [address] [place] [address] Care Team Providers Name Role Phone Elsewhere, Pcp Primary Care Provider Unavailable Encounter Details Date Type Department Care Team Description 12/04/2018 Clinical [facility] in [facility].S., M .S[place]W. [place] [address] [place] [address] [address] [place] [address] [phone] Social History Tobacco Use Types Packs/Day Years [...] do you attend hindu or Never 2018 islam services? Do you [...] emergency contact. Of note, Ramin's correct contact [facility]: [phone]. Alternative number listed ([phone]) is an invalid number. Ramin resides in [place] and would try to make sure I'm [...] assisting her as able. Ramin resides in [place] and would try to make sure I'm available to attend appointments with her. I explained I was requested to call due to concern from [facility] that Ms. Metcalf may not be fully capable of making an informed decision regarding pacemaker surgery being suggested. Ramin states his mother does not have any formal decision maker in place, and does not have any advanced directive or powerof civil attorney forms completed. I provided education on health care advanced directives and mailed the [facility] Advanced Health Care Directive materials to Ramin's home to review with his mother. Ramin states patient is currently living at [facility]. He does not say how long she has been there. He states they have been working on transition to a senior living facility, however they need to be able to handle her medical condition before she can be transferred. I explained that the staff at [facility] could also provide and review an [...] documented as of this encounter Care Teams Configuration Consultant Relationship Specialty Start Date End Date Elsewhere, Pcp PCP - General Internal Medicine 07/27/18 documented as of this encounter
--- OUTSIDE RECORDS SUMMARY | 2022-02-06 06:52 | XMS_ITS | Encounter Summary ---
:1955 Author Organization [facility] Address [address] [place] [address] Care Team Providers Name Role Phone Elsewhere, Pcp Primary Care Provider Unavailable Encounter Details Date Type Department Care Team Description 01/19/2019 Hospital Encounter Department of Siontis, Thrombus Atrial (HCC); Cardiovascular Diseases Porfirio, Flu tter Atrial (HCC) in [facility] nasim Kellogg [address] [facility] [address] [place] [address] [phone] Social History Tobacco Use Types Packs/Day Years [...] do you attend baptist or Never 2018 protestant services? Do you [...] a missing H&P. Health Information Management Services HITE PAN DRIER TENDER documented in this encounter Plan of [...] ventricul ar ejection fraction 55 % with rell-mx-vvxv variability. RIGHT VENTRICLE: ??Mild right ventricul ar [...] performed at the request of the primary service writer advisor. ??Adult probe inserted without difficulty. ??Procedure performed [...] Sedation Narrator or other pertinent record in [facility] for additional procedure and sedation [...] ventricular ejection f raction 55 % with epxp-mf-vzvk variability. 5. Tiny pericardial effusion around the [...] ventricular ejection f raction 55 % with ldal-li-dcyz variability. 5. Tiny pericardial effusion around the [...] left ventricular ejection fraction 55 % with mzkg-tg-femk variability. RIGHT VENTRICLE: Mild right ventricular enlargement. [...] performed at the request of the primary service writer advisor. Adult pr obe inserted without difficulty. Procedure [...] documented as of this encounter Care Teams Deburrer Strip Relationship Specialty Start Date End Date Elsewhere, Pcp PCP - General Internal Medicine 07/27/18 documented as of this encounter
--- OUTSIDE RECORDS SUMMARY | 2022-02-06 06:52 | XMS_ITS | Encounter Summary ---
:1955 Author Organization [facility] Address [address] [place] [address] Care Team Providers Name Role Phone Elsewhere, Pcp Primary Care Provider Unavailable Encounter Details Date Type Department Care Team Description 11/25/2018 Hospital Encounter Department of Siontis, Abnormal Liver Radiology, Garett Monroy [facility] in .[place], [place] [address] [facility] [address] [place] [address] [phone] Social History Tobacco Use Types Packs/Day Years [...] do you attend jew or Never 2018 evangelical services? Do you [...] documented as of this encounter Care Teams Resin Shaver Relationship Specialty Start Date End Date Elsewhere, Pcp PCP - General Internal Medicine 07/27/18 documented as of this encounter
--- OUTSIDE RECORDS SUMMARY | 2022-02-06 06:52 | XMS_ITS | Encounter Summary ---
:1955 Author Organization [facility] Address [address] [place] [address] Care Team Providers Name Role Phone Elsewhere, Pcp Primary Care Provider Unavailable Encounter Details Date Type Department Care Team Description 11/26/2018 Clinical Communication [facility], Work in [facility].S., M .S.W. [place] [address] [place] [address] [address] [place] [address] [phone] Social History Tobacco Use Types Packs/Day Years [...] do you attend catholic or Never 2018 taoism services? Do you [...] as of this encounter Care Teams Manager Engagement Relationship Specialty Start Date End Date Elsewhere, Pcp PCP - General Internal Medicine 07/27/18 documented as of this encounter
--- OUTSIDE RECORDS SUMMARY | 2022-02-06 06:52 | XMS_ITS | Encounter Summary ---
:1955 Author Organization [facility] Address [address] [place] [address] Care Team Providers Name Role Phone Elsewhere, Pcp Primary Care Provider Unavailable Reason for Visit Outpatient (Routine) - Closed Specialty Diagnoses / Referred By Referred To Cont act Procedures Contact Gastroenterology and Diagnoses Abnormal Liver Function Test [facility] Hepatology Bess Monroy [address] [place] [address] Referral ID Status Reason Start Date Expiration Date Visits Requ ested Visits Authorized [id number] Closed 10/21/2018 10/21/2019 1 1 Encounter Details Date Type Department Care Team Description 12/11/2018 Comprehensive Visit Division of Lele Villegas M.D. [address] [place] [phone] Abnormal Liver Function Test; Gastroenterology in Joseph Verduzco M.B.B.S., MCarlos [address] [place] [address] Abnormal Levels Of Other Serum Enzymes [place], [place] [address] [place] [phone] Social History Tobacco Use Types Packs/Day Years [...] do you attend worship or Never 2018 temple services? Do you [...] past. She was recently admitted to the [facility] in June 2012 showed atrial flutter. She was then transferred to [facility] for further management. Echocardiogram in on June [...] file Gets together: Not on file Attends temple service: Not on file Active member of [...] Dr. Verduzco's note. CT CT Job ID: [id number] documented in this encounter Plan of Treatment [...] >=60 12/11/2018 Black/ mL/min/BSA 12:17 PM CDT Sierra Leonean Comment: ----ADDITIONAL INFORMATION---- Estimated GFR [...] M.D. LAB BLOOD ADD-ON Performing Organization Address [facility]/ZIP Code Phon e Number [facility] - [address] [place] [address] 05 [facility] Ceruloplasmin (12/11/2018 10:44 AM CDT) P athologist Signature Ceruloplasmin, 31.7 20.0 - 51.0 12/11/2018 S mg/dL 12:35 PM CDT Specimen Anatomical Collection Method Collection Time Receive d Time (Source) Location / / Volume Laterality Blood (Blood, 12/11/2018 10:44 12/11/2018 Venous) AM CDT 11:57 AM CDT Joseph Pham M.D. LAB BLOOD ADD-ON Performing Organization Address City/[facility] Code Phon e Number [facility] - [address] [place] [address] 05 [facility] (ABNORMAL) MELINDA (Antinuclear Antibodies) (12/11/2018 10:44 [...] M.D. LAB BLOOD ADD-ON Performing Organization Address City/[facility]/ZIP Code Phon e Number [facility] [address] [place], [place] [address] [facility] Hepatitis A [...] - B LOOD ORDERABLES Performing Organization Address [facility] Phon e Number [address] [place] [address] 05 [facility] Smooth Muscle Antibodies (12/11/2018 [...] M.D. LAB BLOOD ADD-ON Performing Organization Address [facility] Phon e Number [address] [place] [address] [facility] HCV Ab Scrn w/Reflex to HCV PCR, Serum (12/11/2018 10:44 AM CDT) P athologist Signature HCV Ab Screen, Negative Negative 12/11/2018 S 3:47 PM CDT Comment: Uxekkk-px-ighmsg ratio is <1.00 . Specimen Anatomical Collection Method Collection Time Receive d Time (Source) Location / / Volume Laterality Blood (Blood, 12/11/2018 10:44 12/11/2018 2:30 Venous) AM CDT PM CDT Joseph Pham M.D. LAB MICROBIOLOGY - B LOOD ORDERABLES Performing Organization Address City/State/ZIP Code Phon e Number [facility] [address] [place], [place] [address] [facility] HBc Total Ab, Serum (12/11/2018 10:44 AM CDT) athologist Signature HBc Total Ab, Negative Negative 12/11/2018 S 3:47 PM CDT Specimen Anatomical Collection Method Collection Time Receive d Time (Source) Location / / Volume Laterality Blood (Blood, 12/11/2018 10:44 12/11/2018 2:30 Venous) AM CDT PM CDT Joseph Pham M.D. LAB MICROBIOLOGY - B LOOD ORDERABLES Performing Organization Address [facility]/ZIP Code Phon e Number [address] [place] [address] 05 [facility] Hepatitis B Surface Antigen (12/11/2018 10:44 AM CDT) athologist Signature HBs Antigen, S Negative Negative 12/11/2018 3:29 PM CDT Specimen Anatomical Collection Method Collection Time Receive d Time (Source) Location / / Volume Laterality Blood (Blood, 12/11/2018 10:44 12/11/2018 2:30 Venous) AM CDT PM CDT Joseph Pham M.D. LAB MICROBIOLOGY - B LOOD ORDERABLES Performing Organization Address City/[facility]/ZIP Code Phon e Number [address] [place], [place] [address] [facility] Immunoglobulin M (IgM) (12/11/2018 10:44 AM CDT) [facility] Method Time Signature Immunoglobulin M 74 37 - 286 12/11/2018 (IgM), S mg/dL 5:00 PM CDT Specimen Anatomical Collection Method Collection Time Receive d Time (Source) Location / / Volume Laterality Blood (Blood, 12/11/2018 10:44 12/11/2018 2:37 Venous) AM CDT PM CDT Joseph Pham M.D. LAB BLOOD ADD-ON Performing Organization Address City/[facility]/ZIP Code Phon e Number [address] LORA Gonzales [facility] 05 [facility] Immunoglobulin G (IgG) (12/11/2018 10:44 AM CDT) Patholo gist Method Time Signature Immunoglobulin G 1190 767 - 1590 12/11/2018 (IgG), S mg/dL 4:59 PM CDT Specimen Anatomical Collection Method Collection Time Receive d Time (Source) Location / / Volume Laterality Blood (Blood, 12/11/2018 10:44 12/11/2018 2:37 Venous) AM CDT PM CDT Joseph Pham M.D. LAB BLOOD ADD-ON Performing Organization Address [facility] Phon e Number [facility] [address] [place] Velasco [facility] 05 [facility] HBs Antibody, Serum (12/11/2018 10:44 [...] - B LOOD ORDERABLES Performing Organization Address [facility] Phon e Number [facility] [address] [place] Velasco [facility] 05 [facility] (ABNORMAL) Celiac Disease Serology [place] (12/11/2018 10:44 AM CDT) Component Value Ref [...] M.D. LAB BLOOD ADD-ON Performing Organization Address [facility] Phon e Number [address] [place] [address] 05 [facility] Eqpfj-7-Kustsfsaoxo Phenotype (12/11/2018 10:44 AM CDT) P athologist Signature Xrtld-7-Dowthzr 131 100 - 190 12/11/2018 psin, S mg/dL 3:46 PM CDT Teypq-9-Iaopegk MM bands 12/14/2018 psin Phenotype 3:10 PM CDT Comment: A single M isoform is detected. In the c ontext of a normal fuxgs-7-abkpxulbaqc concentration, this is consistent with an MM phenotype. Specimen Anatomical Collection Method Collection Time Receive d Time (Source) Location / / Volume Laterality Blood (Blood, 12/11/2018 10:44 12/11/2018 2:37 Venous) AM CDT PM CDT Joseph Pham M.D. LAB BLOOD ADD-ON Performing Organization Address [facility] Phon e Number [address] [place] [address] 05 [facility] Mitochondrial Antibodies (M2) (12/11/2018 [...] M.D. LAB BLOOD ADD-ON Performing Organization Address City/[facility]/ZIP Code Phon e Number [facility] [address] [place] [address] 05 [facility] Iron and Total Iron-Binding [...] M.D. LAB BLOOD ADD-ON Performing Organization Address City/[facility]/ZIP Code Phon e Number [facility] - [address] [place] [address] 05 [facility] Ferritin (12/11/2018 10:44 AM CDT) athologist Signature Ferritin, S 63 11 - 307 12/11/2018 mcg/L 12:15 PM CDT Specimen Anatomical Collection Method Collection Time Receive d Time (Source) Location / / Volume Laterality Blood (Blood, 12/11/2018 10:44 12/11/2018 Venous) AM CDT 11:05 AM CDT Joseph Pham M.D. LAB BLOOD ADD-ON Performing Organization Address City/[facility] Code Phon e Number [facility] - [address] [place] [address] 05 [facility] CBC without Differential (12/11/2018 10:44 AM [...] City/State/ZIP Code Phon e Number [facility] - [address] documented in this encounter Visit Diagnoses Diagnosis Abnormal Liver Function Test Abnormal Levels Of Other Serum Enzymes documented in this encounter Additional Health Concerns Assessment Noted Time PHQ-9 Depression Total Score: 11 05/04/2013 4:05 PM CS T documented as of this encounter Care Teams Supervisor Paper Machine Relationship Specialty Start Date End Date Elsewhere, Pcp PCP - General Internal Medicine 07/27/18 documented as of this encounter
--- OUTSIDE RECORDS SUMMARY | 2022-02-06 06:52 | XMS_ITS | Encounter Summary ---
:1955 Author Organization [facility] Address [address] [place] [address] Care Team Providers Name Role Phone Elsewhere, Pcp Primary Care Provider Unavailable Encounter Details Date Type Department Care Team Description 10/20/2018 Hospital Encounter Department of Siontis, Flutter Atrial (HCC); Laboratory Medicine Porfirio, Thrombu s Atrial (HCC); and Pathology, M.D. 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 Do you [...] Systolic (Congestive) And Diastolic (Congestive) Heart Failure ([facility]) CBC WITH DIFFERENTIAL, Routine 10/20/2018 3:02 [...] with Differential, Blood (10/20/2018 3:02 PM CDT) [facility] Method Time Signature Hemoglobin 12.9 11.6 [...] City/State/ZIP Code Phon e Number [facility] - [address] [place], [place] [address] 05 [facility] (ABNORMAL) PT (Prothrombin Time) with INR (10/20/2018 3:02 PM CDT) [facility] Method Time Signature Prothrombin 25.4 (H) [...] City/State/ZIP Code Phon e Number [facility] - [address] [place], [place] [address] [facility] (ABNORMAL) CMP (Comprehensive Metabolic Panel) (10/20/2018 3:02 [...] >=60 10/20/2018 Black/ mL/min/BSA 4:05 PM CDT Surinamese Comment: ----ADDITIONAL INFORMATION---- Estimated GFR calculated [...] City/State/ZIP Code Phon e Number [facility] - [address] documented in this encounter Visit Diagnoses Diagnosis Flutter Atrial (HCC) Thrombus Atrial (HCC) 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
--- OUTSIDE RECORDS SUMMARY | 2022-02-06 06:52 | XMS_ITS | Encounter Summary ---
:1955 Author Organization [facility] Address [address] [place] [address] Care Team Providers Name Role Phone Elsewhere, Pcp Primary Care Provider Unavailable Reason for Visit Outpatient (Routine) - Canceled Specialty Diagnoses / Procedures Referred By Contact Refer red To Contact Social Work Diagnoses Thrombus Atrial (HCC) Flutter Atrial (HCC) Porfirio Villegas [facility] Bess [address] [place] [phone] Referral ID Status Reason Start Date Expiration Date Visits V isits Requested Authorized [id number] Canceled 11/25/2018 11/25/2019 1 1 Encounter Details Date Type Department Care Team Description 11/26/2018 Clinical Communication Department of Porfirio Fraga M.D. [address] [place] [phone] No Show Work in [place], [place], Andrade Mccall.C.S.W., M.S.WEdilma [address] [place] [phone] [place] [address] [place] [phone] Social History Tobacco Use Types Packs/Day Years [...] do you attend moravian or Never 2018 yarsani services? Do you [...] back number for patient to call office [phone] documented in this encounter Plan of Treatment Not on filedocumented as of this encounter Visit Diagnoses Not on filedocumented in this encounter Additional Health Concerns Assessment Noted Time PHQ-9 Depression Total Score: 11 05/04/2013 4:05 PM CS T documented as of this encounter Care Teams Track Repair Worker Relationship Specialty Start Date End Date Elsewhere, Pcp PCP - General Internal Medicine 07/27/18 documented as of this encounter
--- OUTSIDE RECORDS SUMMARY | 2022-02-06 06:52 | XMS_ITS | Encounter Summary ---
:1955 Author Organization [facility] Address [address] [place] [address] Care Team Providers Name Role Phone Elsewhere, Pcp Primary Care Provider Unavailable Encounter Details Date Type Department Care Team Description 10/22/2018 Clinical Communication Department of Marley Cooper Cardiovascular Medicine [facility] [phone] [address] [facility] (Work) [place] [phone] Social History Tobacco Use Types Packs/Day [...] do you attend spiritism or Never 2018 latter-day services? Do you [...] documented as of this encounter Care Teams [employer] Wireman Relationship Specialty Start Date End Date Elsewhere, Pcp PCP - General Internal Medicine 07/27/18 documented as of this encounter
--- OUTSIDE RECORDS SUMMARY | 2022-02-06 06:52 | XMS_ITS | Encounter Summary ---
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) [facility] Cardiovascular Disease Luan Monroy [address] [place] [address] Referral ID Status Reason Start Date Expiration Date Visits Requ ested Visits Authorized [id number] Closed 09/14/2018 09/14/2019 1 1 Encounter Details Date Type Department Care Team Description 10/21/2018 Comprehensive Visit Department of Javier Kaiser Acute O n Chronic Combined Systolic (Congestive) And Diastolic (Congestive) Heart Failure (HCC) (Primary Dx); Cardiovascular Bess Salinas Apnea Sleep Obstructive; Medicine in 200 [facility] Flutter Atrial (HCC); [facility] Hypertensive Heart Disease With Heart Fa ilure (HCC); [address] [place] [address], Thrombus Atrial (HCC); [facility] Diabetes Melli tus Type 2 Without Complication (HCC); [id number] Hyperlipidemia On Treatment; [phone] Other Dyspnea (Work) Social History Tobacco Use [...] do you attend yarsanism or Never 2018 methodist services? Do you [...] file Gets together: Not on file Attends methodist service: Not on file Active member of [...] evaluated locally and she was admitted to [facility] June 22 for AFib with RVR and [...] juice discharge June. Patient was here at [facility] for an additional opinion when she was [...] file Gets together: Not on file Attends methodist service: Not on file Active member of [...] motion abnormalities, estimated ejection fraction 55% with sfzz-kx-vrnk variability. 3. Mild right ventricular enlargement with [...] appendage emptying velocity 31 cm/sec. 3. No woosh-ux-temq shunt at atrial level at rest or [...] ECHO DOPPLER COLOR (10/20/2018 2:26 PM CDT) [facility] Method Time Signature Ejection Fraction 55 [...] motion abnormalities, estimated ejection fraction 55% with yagh-pk-wjpw variability. 3. Mild right ventricular enlargement wi [...] ventricular ejection fra ction 55 % with mpwc-tu-qjhm variability. ??No regional wall motion abnormalities. ??Indetermina [...] motion abnormalities, estimated ejection fraction 55% with glpt-qa-glom variability. 3. Mild right ventricular enlargement wi [...] ventricular ejection fra ction 55 % with yplx-eg-rpmm variability. No regional wall motion abnormalities. Indeterminate [...] documented as of this encounter Care Teams After School Program Director Relationship Specialty Start Date End Date Elsewhere, Pcp PCP - General Internal Medicine 07/27/18 documented as of this encounter
--- OUTSIDE RECORDS SUMMARY | 2022-02-06 06:52 | XMS_ITS | Encounter Summary ---
:1955 Author Organization [facility] Address [address] [place] [address] Care Team Providers Name Role Phone Elsewhere, Pcp Primary Care Provider Unavailable Encounter Details Date Type Department Care Team Description 11/25/2018 Hospital Encounter Department of Siontis, Abnormal Liver Laboratory Medicine Branden Monroy [facility] [place] [facility] [address] [place], [place] [address] [facility] [address] [place], [place] [phone] (Work) [phone] Social History Tobacco Use Types Packs/Day Years [...] do you attend lutheran or Never 2018 druze services? Do you [...] >=60 11/25/2018 Black/ mL/min/BSA 12:49 PM CDT Algerian Comment: ----ADDITIONAL INFORMATION---- Estimated GFR calculated [...] Organization Address City/State/ZIP Code Phon e Number [facility] - [address] [place] [address] [facility] (ABNORMAL) Hepatic Function Panel (11/25/2018 11:07 AM CDT) [facility] gist Method Time Signature Bilirubin, Total, S [...] M.D. LAB BLOOD ADD-ON Performing Organization Address [facility] Phon e Number [facility] - [address] (ABNORMAL) PT (Prothrombin Time) with INR (11/25/2018 11:07 AM CDT) [facility] [employer] Method Time Signature Prothrombin 38.4 (H) 9.4 [...] M.D. LAB BLOOD ADD-ON Performing Organization Address [facility] Phon e Number [facility] - [address] (ABNORMAL) CBC without Differential (11/25/2018 11:07 AM CDT) [facility] [employer] Method Time Signature Hemoglobin 14.8 11.6 - [...] M.D. LAB BLOOD ADD-ON Performing Organization Address City/State/[facility] Code Phon e Number [facility] - [address] [place] [address] [facility] documented in this encounter Visit Diagnoses Diagnosis Abnormal Liver Function Test documented in this encounter Additional Health Concerns Assessment Noted Time PHQ-9 Depression Total Score: 11 05/04/2013 4:05 PM CS T documented as of this encounter Care Teams Hydroelectric Plant Operator Relationship Specialty Start Date End Date Elsewhere, Pcp PCP - General Internal Medicine 07/27/18 documented as of this encounter
--- OUTSIDE RECORDS SUMMARY | 2022-02-06 06:52 | XMS_ITS | Encounter Summary ---
:1955 Author Organization [facility] Address [address] [place] [address] Care Team Providers Name Role Phone Elsewhere, Pcp Primary Care Provider Unavailable Encounter Details Date Type Department Care Team Description 12/01/2018 Clinical Communication [facility], Work in [facility].S., M .S.W. [place] [address] [place] [address] [address] [place] [phone] [phone] Social History Tobacco Use Types Packs/Day Years [...] do you attend yazidi or Never 2018 voodoo services? Do you [...] 10:59 AM CDT Call to Ms. Metcalf ([phone]) following up to last week's missed phone appointment. Left message requesting call back to [phone]. [Based on appointment referral and chart notes, [...] documented as of this encounter Care Teams Outsole Skiver Relationship Specialty Start Date End Date Elsewhere, Pcp PCP - General Internal Medicine 07/27/18 documented as of this encounter
--- OUTSIDE RECORDS SUMMARY | 2022-02-06 06:52 | XMS_ITS | Encounter Summary ---
:1955 Author Organization [facility] Address [address] [place] [address] Care Team Providers Name Role Phone Elsewhere, Pcp Primary Care Provider Unavailable Reason for Visit Reason Onset Date Comments Rapid Heart Rate 10/30/2018 Encounter Details Date Type Department Care Team Description 10/30/2018 Clinical Department of Steven Rapid Heart Ra te Communication Cardiovascular Tracy Orozco, Medicine in [place], .S.N., [facility] [phone] [address] [facility] (Work) [place] [address] Social History Tobacco Use Types Packs/Day Years [...] 11/02/2018 4:10 PM CDT I contacted the prison. Dr. Johnston was not available, but I spoke to her nurse. Her vitals over the last few days show consistently elevated heart rate between 110-135 beats per minute. She is asymptomatic other than occasional headache. Her edema is improved. [facility] [...] CDT INFORMATION DISCUSSED Dr. Johnston from a terminal gauger facility in [place], [place] contacted [facility] regarding Ms. Metcalf. He states that he is overseeing her care in the prison until Ms. Metcalf can be transferred to the assisted living facility (she is waiting for an open bed). Dr. Johnston states that in the prison they are monitoring Ms. Metcalf's vital signs. [...] Dr. Johnston can be reached at the prison facility's phone number of : [phone]. He said verbal orders can also be [...] as of this encounter Care Teams Director Rehabilitation Program Relationship Specialty Start Date End Date Elsewhere, Pcp PCP - General Internal Medicine 07/27/18 documented as of this encounter
--- OUTSIDE RECORDS SUMMARY | 2022-02-06 06:52 | XMS_ITS | Encounter Summary ---
:1955 Author Organization [facility] Address [address] [place] [address] Care Team Providers Name Role Phone Elsewhere, Pcp Primary Care Provider Unavailable Reason for Referral Outpatient (Routine) - Closed Specialty Diagnoses / Referred By Referred To Cont act Procedures Contact Gastroenterology and Diagnoses [facility] Bess Monroy [address] [place] [address] Referral ID Status Reason Start Date Expiration Date Visits Requ ested Visits Authorized [id number] Closed 10/21/2018 10/21/2019 1 1 Reason for Visit Outpatient (Routine) - Closed Specialty Diagnoses / Procedures Referred By Contact Refer red To Contact Cardiovascular Disease Nelly [place] Guanaco Monroy M.D. [address] [place] [address] Referral ID Status Reason Start Date Expiration Date Visits Requ ested Visits Authorized [id number] Closed 09/14/2018 09/14/2019 1 1 Encounter Details Date Type Department Care Team Description 10/21/2018 Office Visit Department of Nelly Flutter Atrial (HCC) (Primary Dx); Cardiovascular Medicine Ayaka Monroy ormal Liver Function Test in [facility] nasim Kellogg 200 [facility] [address] [place] [address] [place], [place] [phone] Social History Tobacco Use Types Packs/Day Years [...] do you attend orthodoxy or Never 2018 oriental orthodox services? Do [...] regurgitation.She had a most recent admission to [facility] in June for recurrent atrial flutter and [...] >=60 11/25/2018 Black/ mL/min/BSA 12:49 PM CDT [place] Citizen Comment: ----ADDITIONAL INFORMATION---- Estimated GFR calculated using [...] Organization Address City/State/ZIP Code Phon e Number [facility] - [address] [place], [place] [address] [facility] (ABNORMAL) Hepatic Function Panel (11/25/2018 11:07 AM CDT) [facility] Method Time Signature Bilirubin, Total, S [...] Organization Address City/State/ZIP Code Phon e Number [facility] - [address] [place], [place] [address] [facility] (ABNORMAL) PT (Prothrombin Time) with INR (11/25/2018 11:07 AM CDT) [facility] Time Signature Prothrombin 38.4 (H) 9.4 - [...] M.D. LAB BLOOD ADD-ON Performing Organization Address [facility]/ZIP Code Phon e Number [facility] - [address] (ABNORMAL) CBC without Differential (11/25/2018 11:07 AM CDT) [facility] gist Method Time Signature Hemoglobin 14.8 11.6 [...] LAB BLOOD ADD-ON Performing Organization Address City/[facility]/ZIP Code Phon e Number [facility] - [address] US Abdomen Complete (11/25/2018 10:35 AM [...] documented as of this encounter Care Teams Fare Enforcement Officer Relationship Specialty Start Date End Date Elsewhere, Pcp PCP - General Internal Medicine 07/27/18 documented as of this encounter
--- OUTSIDE RECORDS SUMMARY | 2022-02-06 06:52 | XMS_ITS | Encounter Summary ---
:1955 Author Organization [facility] Address 200 [place] [address] Care Team Providers Name Role Phone Elsewhere, Pcp Primary Care Provider Unavailable Reason for Referral Outpatient (Routine) - Closed Specialty Diagnoses / Procedures Referred By Contact Refer red To Contact Cardiovascular Tip Villegas [place] Guanaco Monroy M.D. 200 [place] [address] Referral ID Status Reason Start Date Expiration Date Visits Requ ested Visits Authorized [id number] Closed 11/25/2018 11/25/2019 1 1 Reason for Visit Outpatient (Routine) - Closed Specialty Diagnoses / Procedures Referred By Contact Reggie harris To Contact Cardiovascular Tip Villegas [place] Guanaco Monroy M.D. 200 [place] [address] Referral ID Status Reason Start Date Expiration Date Visits Requ ested Visits Authorized [id number] Closed 11/02/2018 11/02/2019 1 1 Encounter Details Date Type Department Care Team Description 11/25/2018 Office Visit Department of Nelly, Thrombus Atria l (HCC) (Primary Dx); Cardiovascular Medicine Lynette Monroy tter Atrial (HCC) in [facility] nasim Kellogg 200 [facility] 200 [place] [address] [place], [place] [phone] Social History Tobacco Use Types Packs/Day Years [...] do you attend jewish or Never 2018 latter-day services? Do you [...] is telling me that her power of production coordinator is her oldest son; however, it is unclear whether this has been finalized legally. I will request a consult by a perinatal social worker to assist in those decisions. [...] member who is legally her power of production coordinator. The patient also has a Hepatology Clinic [...] ventricul ar ejection fraction 55 % with zjtz-jo-uvtr variability. RIGHT VENTRICLE: ??Mild right ventricul ar [...] performed at the request of the primary branch service leader. ??Adult probe inserted without difficulty. ??Procedure performed [...] Sedation Narrator or other pertinent record in [facility] for additional procedure and sedation in formation. [...] ventricular ejection f raction 55 % with oclm-nq-tiya variability. 5. Tiny pericardial effusion around the [...] 7. [facility] and October 20 2018 for other details of resting finding. Procedure Note Rhina Lucas M.B.B.S., Ph.D. - For the complete report, see the [facility] Documents below. Final Impressions 1. GOAL DIRECTED MICHAEL TO ASSESS LEFT ATRI AL APPENDAGE 2. Dilated and hypokinetic left atrial a ppendage with dense spontaneous echo contrast. No left atrial appendage thrombus. 3. 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 4. Estimated left ventricular ejection f raction 55 % with jclq-jd-nsiq variability. 5. Tiny pericardial effusion around the [...] 7. Please [facility] July 01 2018 and [...] left ventricular ejection fraction 55 % with nrrq-yo-shws variability. RIGHT VENTRICLE: Mild right ventricular enlargement. [...] performed at the request of the primary branch service leader. Adult pr obe inserted without difficulty. Procedure [...] as of this encounter Care Teams Roll Inspector Relationship Specialty Start Date End Date Elsewhere, Pcp PCP - General Internal Medicine 07/27/18 documented as of this encounter
--- OUTSIDE RECORDS SUMMARY | 2022-02-06 06:52 | XMS_ITS | Encounter Summary ---
:1955 Author Organization [facility] Address [address] [place] [address] Care Team Providers Name Role Phone Elsewhere, Pcp Primary Care Provider Unavailable Encounter Details Date Type Department Care Team Description 10/20/2018 Hospital Encounter Department of Sondra Villegas On Chronic Cardiovascular Diseases Archana Monroy bined Systolic in [facility] nasim Kellogg (Congestive) And [address] Diastolic [place], [place] (Congestive) Heart [phone] Failure (HCC) [phone] Social History Tobacco Use Types Packs/Day Years [...] do you attend samaritan or Never 2018 hinduism services? Do you [...] ECHO DOPPLER COLOR (10/20/2018 2:26 PM CDT) [facility] gist Method Time Signature Ejection Fraction 55 [...] motion abnormalities, estimated ejection fraction 55% with ehux-lt-bego variability. 3. Mild right ventricular enlargement wi [...] ventricular ejection fra ction 55 % with huqj-gz-eqic variability. ??No regional wall motion abnormalities. ??Indetermina [...] motion abnormalities, estimated ejection fraction 55% with myyu-rp-hjzi variability. 3. Mild right ventricular enlargement wi [...] ventricular ejection fra ction 55 % with xqzo-vq-wacg variability. No regional wall motion abnormalities. Indeterminate [...] as of this encounter Care Teams General Education Instructor Relationship Specialty Start Date End Date Elsewhere, Pcp PCP - General Internal Medicine 07/27/18 documented as of this encounter
--- OUTSIDE RECORDS SUMMARY | 2022-02-06 06:52 | XMS_ITS | Encounter Summary ---
:1955 Author Organization [facility] Address [address] [place] [address] Care Team Providers Name Role Phone Elsewhere, Pcp Primary Care Provider Unavailable Reason for Referral Outpatient (Routine) - Closed Specialty Diagnoses / Procedures Referred By Contact Refer red To Contact [facility] Bess Monroy [address] [place] [address] Referral ID Status Reason Start Date Expiration Date Visits Requ ested Visits Authorized [id number] Closed 11/02/2018 11/02/2019 1 1 Scheduling Instructions With myself on 11/11 in the afternoon Encounter Details Date Type Department Care Team Description 11/02/2018 Orders Only Department of Cody Villegas Atrial (HCC) Cardiovascular Medicine Porfirio (Pr imary Dx) in [facility] nasim Kellogg [address] [facility] [address] [place] [address] [place], [place] [phone] Social History Tobacco Use Types Packs/Day Years [...] do you attend latter-day or Never 2018 bahai services? Do you [...] ECG 12 Lead (11/25/2018 12:31 PM CDT) [facility] gist Method Time Signature Ventricular 96 BPM MUSE Rate ECG/Min QRSD Interval 98 ms MUSE QT Interval 274 ms MUSE QTC Interval 346 ms MUSE P [place] -106 degrees MUSE R [place] 99 degrees MUSE T Wave [place] -99 degrees MUSE CODED DIAGNOSIS Atrial MUSE [...] documented as of this encounter Care Teams Electric Welder Helper Relationship Specialty Start Date End Date Elsewhere, Pcp PCP - General Internal Medicine 07/27/18 documented as of this encounter
--- OUTSIDE RECORDS SUMMARY | 2022-02-06 06:52 | XMS_ITS | Encounter Summary ---
:1955 Author Organization [facility] Address [address] [place] [address] Care Team Providers Name Role Phone Elsewhere, Pcp Primary Care Provider Unavailable Encounter Details Date Type Department Care Team Description 12/11/2018 Hospital Encounter Department of Joseph Verduzco Abnormal Liver Function Test; Laboratory Medicine Becki Caballero, Abnormal Levels Of Other Serum Enzymes and Pathology, Luan Pham. [address], [address] [place] [address] [phone] Social History Tobacco Use Types Packs/Day Years [...] do you attend episcopal or Never 2018 jehovah's witness services? Do [...] Test procedure are in the results section. [id number] Routine 12/11/2018 10:44 Abnormal Liver Re sults [...] Transglutaminase), Antibody, IgA (12/11/2018 10:44 AM CDT) [facility] Method Time Signature Tissue <1.2 [...] [facility] [address] [place], [place] [address] [facility] (ABNORMAL) CMP (Comprehensive [...] >=60 12/11/2018 Black/ mL/min/BSA 12:17 PM CDT English Comment: ----ADDITIONAL INFORMATION---- Estimated GFR calculated using [...] M.D. LAB BLOOD ADD-ON Performing Organization Address City/[facility] Phon e Number [facility] - [address] [place] [address] [facility] Ceruloplasmin (12/11/2018 10:44 AM CDT) P athologist Signature Ceruloplasmin, 31.7 20.0 - 51.0 12/11/2018 S mg/dL 12:35 PM CDT Specimen Anatomical Collection Method Collection Time Receive d Time (Source) Location / / Volume Laterality Blood (Blood, 12/11/2018 10:44 12/11/2018 Venous) AM CDT 11:57 AM CDT Joseph Pham M.D. LAB BLOOD ADD-ON Performing Organization Address [facility] Phon e Number [facility] - [address] [place] [address] [facility] (ABNORMAL) MELINDA (Antinuclear Antibodies) (12/11/2018 10:44 AM [...] M.D. LAB BLOOD ADD-ON Performing Organization Address City/[facility]/ZIP Code Phon e Number [facility] [address] [place] [address] [facility] Hepatitis A IgG Ab, [...] - B LOOD ORDERABLES Performing Organization Address [facility] Phon e Number [address] [place] [address] [facility] Smooth Muscle Antibodies (12/11/2018 10:44 AM CDT) athologist [facility] Smooth Muscle Negative Negative 12/12/2018 Antibody, S 2:49 PM CDT Comment: ----ADDITIONAL INFORMATION---- This test was developed and its performa nce characteristics determined by [facility] in a manner consistent with CLIA requirements. This test has not been cleared or approved by the [place] d and Drug Administration. Specimen Anatomical Collection Method Collection Time Receive d Time (Source) Location / / Volume Laterality Blood (Blood, 12/11/2018 10:44 12/11/2018 2:40 Venous) AM CDT PM CDT Joseph Pham M.D. LAB BLOOD ADD-ON Performing Organization Address City/[facility] Phon e Number [address] [place] [address] [facility] HCV Ab Scrn w/Reflex to HCV PCR, Serum (12/11/2018 10:44 AM CDT) athologist [facility] HCV Ab Screen, Negative Negative 12/11/2018 S 3:47 PM CDT Comment: Frbdor-fl-dznfol ratio is <1.00 . Specimen Anatomical Collection Method Collection Time Receive d Time (Source) Location / / Volume Laterality Blood (Blood, 12/11/2018 10:44 12/11/2018 2:30 Venous) AM CDT PM CDT Joseph Tirado Becki Pham M.D. LAB MICROBIOLOGY - B LOOD ORDERABLES Performing Organization Address [facility] Phon e Number [address] [place] [address] [facility] HBc Total Ab, Serum [...] - B LOOD ORDERABLES Performing Organization Address [facility] Phon e Number [address] [place] [address] [facility] Hepatitis B Surface Antigen (12/11/2018 10:44 AM CDT) P athologist Signature HBs Antigen, S Negative Negative 12/11/2018 3:29 PM CDT Specimen Anatomical Collection Method Collection Time Receive d Time (Source) Location / / Volume Laterality Blood (Blood, 12/11/2018 10:44 12/11/2018 2:30 Venous) AM CDT PM CDT Joseph Candida Pham M.D. LAB MICROBIOLOGY - B LOOD ORDERABLES Performing Organization Address [facility] Phon e Number [address] [place] [address] [facility] Immunoglobulin M (IgM) (12/11/2018 10:44 AM CDT) [facility] Method Time Signature Immunoglobulin M 74 37 - 286 12/11/2018 (IgM), S mg/dL 5:00 PM CDT Specimen Anatomical Collection Method Collection Time Receive d Time (Source) Location / / Volume Laterality Blood (Blood, 12/11/2018 10:44 12/11/2018 2:37 Venous) AM CDT PM CDT Joseph Pham M.D. LAB BLOOD ADD-ON Performing Organization Address [facility] Code Phon e Number [address] [place] [address] [facility] Immunoglobulin G (IgG) (12/11/2018 10:44 AM CDT) Patholo gist Method Time Signature Immunoglobulin G 1190 767 - 1590 12/11/2018 (IgG), S mg/dL 4:59 PM CDT Specimen Anatomical Collection Method Collection Time Receive d Time (Source) Location / / Volume Laterality Blood (Blood, 12/11/2018 10:44 12/11/2018 2:37 Venous) AM CDT PM CDT Joseph Pham M.D. LAB BLOOD ADD-ON Performing Organization Address [facility] Phon e Number [address] [place] [address] [facility] HBs Antibody, Serum (12/11/2018 [...] - B LOOD ORDERABLES Performing Organization Address [facility] Phon e Number [address] [place] [address] [facility] (ABNORMAL) Celiac Disease Serology [place] (12/11/2018 10:44 AM CDT) Component Value Ref [...] M.D. LAB BLOOD ADD-ON Performing Organization Address [facility] Phon e Number [address] [place] [address] [facility] Yfsem-5-Clgziwcmmdj Phenotype (12/11/2018 10:44 AM CDT) P athologist Signature Ducgh-9-Jbnzgjp 131 100 - 190 12/11/2018 psin, S mg/dL 3:46 PM CDT Tkmbt-6-Xqzucjk MM bands 12/14/2018 psin Phenotype 3:10 PM CDT Comment: A single M isoform is detected. In the c ontext of a normal ieqkd-9-bjyxmgxifbl concentration, this is consistent with an MM phenotype. Specimen Anatomical Collection Method Collection Time Receive d Time (Source) Location / / Volume Laterality Blood (Blood, 12/11/2018 10:44 12/11/2018 2:37 Venous) AM CDT PM CDT Joseph Pham M.D. LAB BLOOD ADD-ON Performing Organization Address City/[facility] Phon e Number [address] [place] [address] [facility] Mitochondrial Antibodies (M2) (12/11/2018 [...] M.D. LAB BLOOD ADD-ON Performing Organization Address City/[facility]/ZIP Code Phon e Number [facility] [address] [place] [address] [facility] Iron and Total Iron-Binding [...] Number [facility] - [address] [place] [address] [facility] Ferritin (12/11/2018 10:44 AM CDT) athologist [facility] Ferritin, S 63 11 - 307 12/11/2018 mcg/L 12:15 PM CDT Specimen Anatomical Collection Method Collection Time Receive d Time (Source) Location / / Volume Laterality Blood (Blood, 12/11/2018 10:44 12/11/2018 Venous) AM CDT 11:05 AM CDT Joseph Pham M.D. LAB BLOOD ADD-ON Performing Organization Address City/[facility]/ZIP Code Phon e Number [facility] - [address] [place] [address] [facility] CBC without Differential (12/11/2018 10:44 AM CDT) [...] Number [facility] - [address] documented in this encounter Visit Diagnoses Diagnosis Abnormal Liver Function Test Abnormal Levels Of Other Serum Enzymes documented in this encounter Additional Health Concerns Assessment Noted Time PHQ-9 Depression Total Score: 11 05/04/2013 4:05 PM CS T documented as of this encounter Care Teams Elementary Assistant Principal Relationship Specialty Start Date End Date Elsewhere, Pcp PCP - General Internal Medicine 07/27/18 documented as of this encounter
--- OUTSIDE RECORDS SUMMARY | 2022-02-06 06:53 | XMS_ITS | Encounter Summary ---
:1955 Author Organization [facility] Address [address] [place] [address] Care Team Providers Name Role Phone Elsewhere, Pcp Primary Care Provider Unavailable Reason for Visit Reason Onset Date Comments Appointment 09/15/2018 Encounter Details Date Type Department Care Team Description 09/15/2018 Clinical Communication Department of Manisha Villegas Cardiovascular Medicine Porfirio in [facility] nasim Kellogg [address] [facility] [address] [place] [address] [place], [place] [phone] Social History Tobacco Use Types Packs/Day Years [...] do you attend zoroastrianism or Never 2018 baptist services? Do you [...] CDT Hi, I got a call from [facility] by a Sierra. She was calling this patient's appts. She was wondering if the patient can come on a and Friday? Can you please call her back [phone]. Thanks I didn't know if there was any notes on this pt. documented in this encounter Plan of Treatment Not on filedocumented as of this encounter Visit Diagnoses Not on filedocumented in this encounter Additional Health Concerns Assessment Noted Time PHQ-9 Depression Total Score: 11 05/04/2013 4:05 PM CS T documented as of this encounter Care Teams Communication Professor Relationship Specialty Start Date End Date Elsewhere, Pcp PCP - General Internal Medicine 07/27/18 documented as of this encounter
--- OUTSIDE RECORDS SUMMARY | 2022-02-06 06:53 | XMS_ITS | Encounter Summary ---
:1955 Author Organization [facility] Address [address] [place] [address] Care Team Providers Name Role Phone Vianney Barrera APRN, C.N.P., M.S.N. Primary Care Provider [phone] Encounter Details Date Type Department Care Team Description 07/07/2018 Documentation Division of [facility] Vianney Barrera APRN , Internal Medicine, Herb France, M.S.N[facility], in [address] [place] [phone] [place] [address] [phone] Social History Tobacco Use Types Packs/Day Years [...] do you attend mu-ism or Never 2018 confucianist services? Do you [...] daily RECHECK INR: 07/09/2018; POC at [facility] documented in this encounter Plan of Treatment Not on filedocumented as of this encounter Visit Diagnoses Not on filedocumented in this encounter Additional Health Concerns Assessment Noted Time PHQ-9 Depression Total Score: 11 05/04/2013 4:05 PM CS T documented as of this encounter Care Teams Boom Supervisor Relationship Specialty Start Date End Date Vianney Barrera APRN, C.N.P., PCP - General Internal Medicine 07/06/18 07/26/18 M.S.N. [address] [place] [address] documented as of this encounter
--- OUTSIDE RECORDS SUMMARY | 2022-02-06 06:53 | XMS_ITS | Encounter Summary ---
:1955 Author Organization [facility] Address [address] [place] [address] Care Team Providers Name Role Phone iVanney Barrera APRN, C.NMarcel., M.S.N. Primary Care Provider [phone] Reason for Visit Reason Comments Anticoagulation Encounter Details Date Type Department Care Team Description 07/15/2018 Documentation Division of [facility], Vianney Caballero APRN , Anticoagulation Internal Medicine, C.N.P., M.S.N . [facility] in [address] [place] [phone] [place] [address] [phone] Social History Tobacco Use Types Packs/Day Years [...] do you attend anglican or Never 2018 gnosticist services? Do you [...] p.o. daily RECHECK INR: 07/17/2018; POC at [facility] documented in this encounter Plan of Treatment Not on filedocumented as of this encounter Visit Diagnoses Not on filedocumented in this encounter Additional Health Concerns Assessment Noted Time PHQ-9 Depression Total Score: 11 05/04/2013 4:05 PM CS T documented as of this encounter Care Teams Precision Thread Grinder Operator Relationship Specialty Start Date End Date Vianney Barrera APRN, C.N.P., PCP - General Internal Medicine 07/06/18 07/26/18 M.S.N. [address] [place] [address] documented as of this encounter
--- OUTSIDE RECORDS SUMMARY | 2022-02-06 06:53 | XMS_ITS | Encounter Summary ---
:1955 Author Organization [facility] Address [address] [place] [address] Care Team Providers Name Role Phone Vianney Barrera APRN, C.NMarcel., M.S.N. Primary Care Provider [phone] Reason for Visit Reason Comments Anticoagulation Encounter Details Date Type Department Care Team Description 07/20/2018 Documentation Division of Community [place], Vianney Caballero APRN , Anticoagulation Internal Medicine, C.N.P., M.S.N . [facility] in [address] [place] [phone] [place] [address] [phone] Social History Tobacco Use Types Packs/Day Years [...] do you attend yazdanism or Never 2018 samaritan services? Do you [...] until INR>2.5 RECHECK INR: 07/22/2018; POC at [facility] documented in this encounter Plan of Treatment Not on filedocumented as of this encounter Visit Diagnoses Not on filedocumented in this encounter Additional Health Concerns Assessment Noted Time PHQ-9 Depression Total Score: 05/04/2013 4:05 PM CS T documented as of this encounter Care Teams Marketing Strategy Lead Relationship Specialty Start Date End Date Vianney Barrera APRN, C.N.P., PCP - General Internal Medicine 07/06/18 07/26/18 M.S.N. [address] [place] [phone] documented as of this encounter
--- OUTSIDE RECORDS SUMMARY | 2022-02-06 06:53 | XMS_ITS | Encounter Summary ---
:1955 Author Organization [facility] Address [address] [place] [address] Care Team Providers Name Role Phone Vianney Barrera APRN C.N.P., M.S.N. Primary Care Provider [phone] Encounter Details Date Type Department Care Team Description 07/23/2018 External Outreach Division of Diana Gabriel Flucaitliner Atrial ([facility]); Community Internal D, P.A.-C. Hypertensive Heart Disease With Heart Fa ilure ([facility]); [facility] [address] [place] [address] Thrombus Atrial ([facility]) [facility], in [facility] [address] [place] [phone] [place] [address] (Work) [place], [place] [phone] (Fax) [phone] Social History Tobacco Use Types Packs/Day Years [...] many times do you More than three jaovn es a week 03/30/2020 talk on the phone with family, friends, or neighbors? How often do you get together with friends More than three t imes a week 03/30/2020 or relatives? How often do you attend yarsani or Never 2018 holiness services? Do you [...] P.A.-C. - 07/23/2018 2:[address] [facility] CHIEF COMPLAINT/PURPOSE OF VISIT Discharge from [facility] (Short-term rehab) HISTORY OF PRESENT ILLNESS Ms. Metcalf is a 63 y.o. woman, recently hospitalized June 29 - 2018, related to recurrent atrial flutter. Patient discharged to [facility] for short-term rehabilitation. Patient has now completed goals of therapy and is planning to discharge back to her home in [place] on July 25, 2018. #1 Flutter Atrial (HCC) Overview: -admitted at the [facility] from 06/22/2018 - 06/23/2018, [...] to discharge back to her home in [place], [place] on 07/24/18, where she resides with [...] a front-wheeled walker. Have asked the facility Student Advisor to set the patient up with home health services/OT prior to her discharge, as patient did not appear to be cognizant of the providers for these services. Did stress the importance of following up with both the in-home OT as recommended, and followup with PCP. Recommend patient followup with her primary care provider at [facility] in approximately 2 weeks for [...] documented as of this encounter Care Teams Floriculture Professor Relationship Specialty Start Date End Date Vianney Barrera APRN, C.N.P., PCP - General Internal Medicine 07/06/18 07/26/18 M.S.N. [address] [place] [address] documented as of this encounter
--- OUTSIDE RECORDS SUMMARY | 2022-02-06 06:53 | XMS_ITS | Encounter Summary ---
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 Do you belong to any clubs or No 02/26/2019 organizations such as buddhism groups, unions, fraNimbit or athletic groups, or school groups? How [...] emptying veloci ty 31 cm/sec. 3. No qyplj-gp-xfob shunt at atrial leve l at rest [...] saline in jection(s) performed during sedation. ??No wvasj-ps-mxhq shunt at atrial level at rest or with Va lsalva release. ??The left atrial appendage thrombus is no longer seen. A tiny mobile echodensit y is now seen which has similar tissue density to the surrounding myocardium. Differential inc ludes tiny organized thrombus vs normal left atrial appendage trabeculation. ??No pericardia l effusion. ??PROCEDURE ??Transesophageal echocardiogram performed at the request of the primary protective services officer. ??Adult probe inserted without difficulty. ??Procedure performed [...] Sedation Narrator or other pertinent record in [email or web address] for addit ional procedure and sedation information. [...] emptying veloci ty 31 cm/sec. 3. No ccvug-ld-xktq shunt at atrial leve l at rest [...] saline inje ction(s) performed during sedation. No qchyc-xl-nwxu shunt at atrial level at rest or with Va lsalva release. The left atrial appendage thrombus is no longer seen. A tiny mobile echodensit y is now seen which has similar tissue density to the surrounding myocardium. Differential inc ludes tiny organized thrombus vs normal left atrial appendage trabeculation. No pericardial effusion. PROCEDURE Transesophageal echocardiogram performed at the request of the primary protective services officer. Adult probe inserted without difficulty. Procedure performed [...] Sedation Narrator or other pertinent record in [facility] for addit ional procedure and sedation [...] documented as of this encounter Care Teams Physical Therapy Assistant Instructor Relationship Specialty Start Date End Date Elsewhere, Pcp PCP - General Internal Medicine 07/27/18 documented as of this encounter
--- OUTSIDE RECORDS SUMMARY | 2022-02-06 06:53 | XMS_ITS | Encounter Summary ---
:1955 Author Organization [facility] Address [address] [place] [address] Care Team Providers Name Role Phone Bruce, Vianney Caballero APRN C.N.P., M.S.N. Primary Care Provider [phone] Reason for Visit Reason Comments Anticoagulation management Encounter Details Date Type Department Care Team Description 07/22/2018 Documentation Division of [facility] Internal D, P.A.-C. [facility] [address] [place] [address] in [facility] [address] [place] [phone] [place] [address] (Work) [place], [place] [phone] (Fax) [phone] Social History Tobacco Use Types Packs/Day Years [...] do you attend buddhist or Never 2018 muslim services? Do you [...] documented as of this encounter Care Teams Waterworks Chief Engineer Relationship Specialty Start Date End Date Vianney Barrera APRN, C.N.P., PCP - General Internal Medicine 07/06/18 07/26/18 M.S.N. [address] [place] [phone] documented as of this encounter
--- OUTSIDE RECORDS SUMMARY | 2022-02-06 06:53 | XMS_ITS | Encounter Summary ---
:1955 Author Organization [facility] Address [address] [place] [address] Care Team Providers Name Role Phone Vianney Barrera APRN, C.N.P., M.S.N. Primary Care Provider [phone] Encounter Details Date Type Department Care Team Description 07/07/2018 Orders Only Division of [facility] Vianney Barrera APRN, Internal Medicine, Herb France, M.S.NEdilma [facility], in [address] [place] [address] [place] [address] [phone] Social History Tobacco Use Types Packs/Day Years [...] often do you attend rastafari or Never 12/06/ 2019 presybeterian services? Do you belong to any [...] documented as of this encounter Care Teams Cloth Desizing Range Tender Relationship Specialty Start Date End Date Vianney Barrera APRN, C.N.PEdilma, PCP - General Internal Medicine 07/06/18 07/26/18 M.S.N. [address] [place] [address] documented as of this encounter
--- OUTSIDE RECORDS SUMMARY | 2022-02-06 06:53 | XMS_ITS | Encounter Summary ---
:1955 Author Organization [facility] Address [address] [place] [address] Care Team Providers Name Role Phone Elsewhere, Pcp Primary Care Provider Unavailable Reason for Visit Reason Comments Medication Visit Encounter Details Date Type Department Care Team Description 07/20/2018 Documentation Division of [facility] Cathleen, Medication Visit Internal Medicine, Luan Diaz. Estevez, [facility], in [address] [place] [address] [place] [address] [place] [address] [phone] Social History Tobacco Use Types Packs/Day Years [...] do you attend adventist or Never 2018 orthodoxy services? Do you [...] PM CDT Contacted by Jyothi at [facility] for missed coumadin dose this last [...] as of this encounter Care Teams Special Effects Artist Relationship Specialty Start Date End Date Elsewhere, Pcp PCP - General Internal Medicine 07/27/18 documented as of this encounter
--- OUTSIDE RECORDS SUMMARY | 2022-02-06 06:53 | XMS_ITS | Encounter Summary ---
:1955 Author Organization [facility] Address [address] [place] [address] Care Team Providers Name Role Phone Bruce, Vianney Caballero APRN, C.N.P., M.S.N. Primary Care Provider [phone] Reason for Visit Reason Comments Anticoagulation Encounter Details Date Type Department Care Team Description 07/09/2018 Documentation Division of [facility] Krishna Marreroroxana Internal Medicine, Romy Fernández APRN, [facility], in C.N.P. [place], [place] [address] [place] [address] Social History Tobacco Use Types Packs/Day [...] do you attend sikhism or Never 2018 sikhism services? Do you [...] p.o. daily RECHECK INR: 07/13/2018; POC at [facility] documented in this encounter Plan of Treatment Not on filedocumented as of this encounter Visit Diagnoses Not on filedocumented in this encounter Additional Health Concerns Assessment Noted Time PHQ-9 Depression Total Score: 11 05/04/2013 4:05 PM CS T documented as of this encounter Care Teams Hand Presser Relationship Specialty Start Date End Date Vianney Barrera APRN, C.N.P., PCP - General Internal Medicine 07/06/18 07/26/18 M.S.N. [address] [place] [address] documented as of this encounter
--- OUTSIDE RECORDS SUMMARY | 2022-02-06 06:53 | XMS_ITS | Encounter Summary ---
:1955 Author Organization [facility] Address [address] [place] [address] Care Team Providers Name Role Phone Vianney Barrera APRN, C.N.P., M.S.N. Primary Care Provider [phone] Reason for Visit Reason Onset Date Comments Please call to verify Correction Discharge 07/20/2018 Encounter Details Date Type Department Care Team Description 07/20/2018 Clinical Communication Division of Vianney Barrera Plea se call to [facility] Internal Dulce SARABIA, irish [facility], in [address] [place] [address] [place] [address] [place], [place] (Work) [phone] Social History Tobacco Use [...] do you attend gnosticist or Never 2018 christianity services? Do you [...] PM CDT Patient is to discharge from [facility] on 07/25, communication was shared on 07/20 with the desk staff to fax an updated appointment guide to the facility. Patient is not on the Pending [facility] list. Update PCP/ Report/ Registry and remove Comment and Patient type. documented in this encounter Plan of Treatment Not on filedocumented as of this encounter Visit Diagnoses Not on filedocumented in this encounter Additional Health Concerns Assessment Noted Time PHQ-9 Depression Total Score: 11 05/04/2013 4:05 PM CS T documented as of this encounter Care Teams Coremaking Machine Operator Relationship Specialty Start Date End Date Vianney Barrera APRN, C.N.P., PCP - General Internal Medicine 07/06/18 07/26/18 M.S.N. [address] [place] [address] documented as of this encounter
--- OUTSIDE RECORDS SUMMARY | 2022-02-06 06:53 | XMS_ITS | Encounter Summary ---
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) [facility] Luan Monroy [address] [place] [address] Referral ID Status Reason Start Date Expiration Date Visits Requ ested Visits Authorized [id number] Closed 09/14/2018 09/14/2019 1 1 Outpatient (Routine) - Closed Specialty Diagnoses / Procedures Referred By Contact Refer red To Contact Cardiovascular Disease [facility] Bess Mnoroy [address] [place] [address] Referral ID Status Reason Start Date Expiration Date Visits Requ ested Visits Authorized [id number] Closed 09/14/2018 09/14/2019 1 1 Scheduling Instructions With myself in 1 month on a friday af ternoon Reason for Visit Outpatient (Routine) - Closed Specialty Diagnoses / Referred By Contact Referred To Contact Procedures Cardiovascular Diseases / Diagnoses Flutter Atrial (HCC) Oralia Ricks, [facility] Cardiovascular Disease Rod SARABIA. 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 Do you [...] June she was again admitted, thistime at [facility] with recurrent atrial flutter with RVR. [...] care. Since discharge from the hospital at [facility], she had another brief admission elsewherefor recurrent [...] when she returns. CT CT Job ID: [id number] documented in this encounter Plan of Treatment [...] with Differential, Blood (10/20/2018 3:02 PM CDT) [facility] Method Time Signature Hemoglobin 12.9 11.6 [...] M.D. LAB BLOOD ADD-ON Performing Organization Address [facility] Phon e Number [facility] - [address] [place] [phone] [facility] (ABNORMAL) PT (Prothrombin Time) with INR (10/20/2018 [...] M.D. LAB BLOOD ADD-ON Performing Organization Address [facility] Code Phon e Number [facility] - [address] [place] [phone] [facility] (ABNORMAL) CMP (Comprehensive Metabolic Panel) (10/20/2018 3:02 [...] >=60 10/20/2018 Black/ mL/min/BSA 4:[address] [facility] Comment: ----ADDITIONAL INFORMATION---- Estimated GFR calculated using [...] Organization Address City/State/ZIP Code Phon e Number [facility] - [address] [place], [place] [address] [facility] HOLTER MONITOR - IN CLINIC INVESTMENT BROKER (10/20/2018 12:14 PM CDT) [facility] gist Method Time Signature VT Runs 0 count HOLTER SENTINEL VE Total Beats 1 count HOLTER SENTINEL VE Percent 0 percent HOLTER Beats SENTINEL VE Max Per [id number] HOLTER Hour Time SENTINEL VE Max Per [...] 0 count HOLTER SENTINEL Min Heart Rate [id number] HOLTER Time SENTINEL Min Heart Rate 40 bpm HOLTER SENTINEL Mean Heart 58 bpm HOLTER Rate SENTINEL Max Heart Rate [id number] HOLTER Time SENTINEL Max Heart Rate 73 [...] emptying veloci ty 31 cm/sec. 3. No vfzhf-gj-whsy shunt at atrial leve l at rest [...] saline in jection(s) performed during sedation. ??No hermx-fe-tzsu shunt at atrial level at rest or with Va lsalva release. ??The left atrial appendage thrombus is no longer seen. A tiny mobile echodensit y is now seen which has similar tissue density to the surrounding myocardium. Differential inc ludes tiny organized thrombus vs normal left atrial appendage trabeculation. ??No pericardia l effusion. ??PROCEDURE ??Transesophageal echocardiogram performed at the request of the primary street light servicer supervisor. ??Adult probe inserted without difficulty. ??Procedure performed [...] Sedation Narrator or other pertinent record in [facility] for addit ional procedure and sedation [...] emptying veloci ty 31 cm/sec. 3. No pxwai-nu-nymv shunt at atrial leve l at rest [...] saline inje ction(s) performed during sedation. No hvveg-sc-ruuw shunt at atrial level at rest or with Va lsalva release. The left atrial appendage thrombus is no longer seen. A tiny mobile echodensit y is now seen which has similar tissue density to the surrounding myocardium. Differential inc ludes tiny organized thrombus vs normal left atrial appendage trabeculation. No pericardial effusion. PROCEDURE Transesophageal echocardiogram performed at the request of the primary street light servicer supervisor. Adult probe inserted without difficulty. Procedure performed [...] Sedation Narrator or other pertinent record in [employer] for addit ional procedure and sedation information. [...] documented as of this encounter Care Teams Premium Service Representative Relationship Specialty Start Date End Date Elsewhere, Pcp PCP - General Internal Medicine 07/27/18 documented as of this encounter
--- OUTSIDE RECORDS SUMMARY | 2022-02-06 06:53 | XMS_ITS | Encounter Summary ---
:1955 Author Organization [facility] Address [address] [place] [address] Care Team Providers Name Role Phone Vianney Barrera APRN, C.NMarcel., M.S.N. Primary Care Provider [phone] Reason for Visit Reason Comments Anticoagulation Encounter Details Date Type Department Care Team Description 07/13/2018 Documentation Division of Community [place], Vianney Caballero APRN , Anticoagulation Internal Medicine, C.N.P., M.S.N . [facility] in [address] [place] [address] [place] [address] [phone] Social History Tobacco Use Types Packs/Day Years [...] do you attend taoist or Never 2018 evangelical services? Do you [...] mg daily RECHECK INR: 07/15/2018; POC at [facility] documented in this encounter Plan of Treatment Not on filedocumented as of this encounter Visit Diagnoses Not on filedocumented in this encounter Additional Health Concerns Assessment Noted Time PHQ-9 Depression Total Score: 11 05/04/2013 4:05 PM CS T documented as of this encounter Care Teams Director Of It Operations Relationship Specialty Start Date End Date Vianney Barrera APRN, C.N.P., PCP - General Internal Medicine 07/06/18 07/26/18 M.S.N. [address] [place] [address] documented as of this encounter
--- OUTSIDE RECORDS SUMMARY | 2022-02-06 06:53 | XMS_ITS | Encounter Summary ---
:1955 Author Organization [facility] Address [address] [place] [address] Care Team Providers Name Role Phone Bruce, Vianney Caballero APRN C.N.P., M.S.N. Primary Care Provider [phone] Reason for Visit Reason Comments CTP Eligibility Encounter Details Date Type Department Care Team Description 07/07/2018 Patient Outreach Division of [facility] Palomo Hurd, CTP Eligibility Internal Medicine, [facility] in [address] [place] [address] [place] [phone] Social History Tobacco Use Types Packs/Day Years [...] do you attend yazidism or Never 2018 oriental orthodox services? Do [...] documented as of this encounter Care Teams Research Clerk Relationship Specialty Start Date End Date Vianney Barrera APRN, C.N.P., PCP - General Internal Medicine 07/06/18 07/26/18 M.S.N. [address] [place] [phone] documented as of this encounter
--- OUTSIDE RECORDS SUMMARY | 2022-02-06 06:53 | XMS_ITS | Encounter Summary ---
:1955 Author Organization [facility] Address [address] [place] [address] Care Team Providers Name Role Phone Elsewhere, Pcp Primary Care Provider Unavailable Encounter Details Date Type Department Care Team Description 09/01/2018 Clinical Communication Department of [facility] [place] Cardiovascular [facility] Stacy, P.AEdilma- CEdilma in [facility] rotary lithographic press operator [address] [facility] [address] [place] [address] [phone] Social History Tobacco Use Types Packs/Day Years [...] do you attend islam or Never 2018 synagogue services? Do you [...] as of this encounter Care Teams Clinical Exercise Physiologist Relationship Specialty Start Date End Date Elsewhere, Pcp PCP - General Internal Medicine 07/27/18 documented as of this encounter
--- OUTSIDE RECORDS SUMMARY | 2022-02-06 06:53 | XMS_ITS | Encounter Summary ---
:1955 Author Organization [facility] Address [address] [place] [address] Care Team Providers Name Role Phone Vianney Barrera APRN, C.N.P., M.S.N. Primary Care Provider [phone] Reason for Visit Appointment Request (Routine) - Closed Specialty Diagnoses / Procedures Referred By Contact Refer red To Contact Community Internal Medicine Referral ID Status Reason Start Date Expiration Date Visits Requ ested Visits Authorized [id number] Closed 07/06/2018 07/06/2019 1 1 Encounter Details Date Type Department Care Team Description 07/08/2018 External Outreach Division of [facility] ([facility]) (Primary Dx); Community Internal Della Leon, Thrombus Atrial ([facility]); Medicine, Herb Marshall, B.ChEdilma, Hypertensi ve Heart Disease With Heart Failure ([facility]); [facility], in Bess Mann Diabetes Mellitus Type 2 Without Complic ation ([facility]); [place], [facility] [address] [facility] Migraine Headache; [place], [place] Hyperlipidemia On Treatment; [address] [facility] [address] Fibromyalgia; [place], [place] [phone] Other Specifie d Anxiety Disorders; [id number] (Work) Apnea Sleep Obstructive; [phone] Gastroesophagea l Reflux Disease Without Esophagitis; (Fax) [...] do you attend restorationist or Never 2018 protestant services? Do you [...] seen today for an admission visit at [facility] ([facility]acute care in [facility]). HISTORY OF PRESENT ILLNESS Ms. Metcalf is 63 years old and lives in [place]. She has multiple medical comorbidities including recurrent [...] were reviewed and updated as appropriate in [facility]:allergies, current medications, medical/surgical history, social [...] breath., Disp: 1 Inhaler, Rfl: 11 ??? aebfnpf-vsmlgieldfzgd-pfkxyvlz (EXCEDRIN MIGRAINE) 250-250-65 mg per tablet, Take [...] Flutter Atrial (HCC) Overview: -admitted at the [facility] from 06/22/2018 - 06/23/2018, where [...] documented as of this encounter Care Teams Layout Artist Relationship Specialty Start Date End Date Vianney Barrera APRN, C.N.P., PCP - General Internal Medicine 07/06/18 07/26/18 M.S.N. [address] [place] [address] documented as of this encounter
--- OUTSIDE RECORDS SUMMARY | 2022-02-06 06:53 | XMS_ITS | Encounter Summary ---
:1955 Author Organization [facility] Address [address] [place] [address] Care Team Providers Name Role Phone Bruce, Vianney Caballero APRN, C.N.P., M.S.N. Primary Care Provider [phone] Reason for Visit Reason Comments Anticoagulation Encounter Details Date Type Department Care Team Description 07/17/2018 Documentation Division of [facility] Krishna Marreroroxana Internal Medicine, Romy Fernández APRN, [facility], in C.N.P. [place], [place] [address] [place] [phone] Social History Tobacco Use Types Packs/Day [...] do you attend scientologist or Never 2018 baptist services? Do you [...] p.o. daily RECHECK INR: 07/20/2018; POC at [facility] documented in this encounter Plan of Treatment Not on filedocumented as of this encounter Visit Diagnoses Not on filedocumented in this encounter Additional Health Concerns Assessment Noted Time PHQ-9 Depression Total Score: 11 05/04/2013 4:05 PM CS T documented as of this encounter Care Teams Inpatient Services Rn Relationship Specialty Start Date End Date Vianney Barrera APRN, C.N.P., PCP - General Internal Medicine 07/06/18 07/26/18 M.S.N. [address] [place] [address] documented as of this encounter
--- OUTSIDE RECORDS SUMMARY | 2022-02-06 06:53 | XMS_ITS | Encounter Summary ---
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 Do you belong to any clubs or No 02/26/2019 organizations such as gnosticist groups, unions, fraZapier or athletic groups, or school groups? How [...] Flutter Atrial (HCC) Results for this CLINIC LINING SETTER CDT Thrombus Atrial procedure are in (HCC) the results Acute On Chronic section. Combined Systolic (Congestive) And Diastolic (Congestive) Heart Failure (HCC) documented in this encounter Results HOLTER MONITOR - IN CLINIC LINING SETTER (10/20/2018 12:14 PM CDT) [facility] gist Method Time Signature VT Runs 0 count HOLTER SENTINEL VE Total Beats 1 count HOLTER SENTINEL VE Percent 0 percent HOLTER Beats SENTINEL VE Max Per [id number] HOLTER Hour Time SENTINEL VE Max Per 1 count HOLTER Hour SENTINEL Tachycardia 0 count HOLTER Runs SENTINEL SVT Runs 3 count HOLTER SENTINEL SVT Max Rate 123 bpm HOLTER SENTINEL SVE Total 3,120 count HOLTER Beats SENTINEL SVE Percent 4 percent HOLTER Beats SENTINEL SVE Max Per [id number] HOLTER Hour Time SENTINEL SVE Max Per 809 count HOLTER Hour SENTINEL Recording Date HOLTER SENTINEL Holter Pauses 0 count HOLTER SENTINEL Min Heart Rate [id number] HOLTER Time SENTINEL Min Heart Rate 40 bpm HOLTER SENTINEL Mean Heart 58 bpm HOLTER Rate SENTINEL Max Heart Rate [id number] HOLTER Time SENTINEL Max Heart Rate 73 bpm HOLTER SENTINEL Bradycardia 0 count HOLTER Runs SENTINEL Analysis Date 20,190,731 HOLTER SENTINEL AF Count 0 count HOLTER SENTINEL Specimen (Source) Anatomical Collection Method Collection Time Re ceived Time Location / / Volume Laterality 10/20/2018 12:13 PM CDT Narrative This result has an attachment that is no t available. Porfirio Vilelgas M.D. [facility] C[facility]IAC SERVICES PROCEDUR ES Performing [...] documented as of this encounter Care Teams Dobby Loom Chain Pegger Relationship Specialty Start Date End Date Elsewhere, Pcp PCP - General Internal Medicine 07/27/18 documented as of this encounter
--- OUTSIDE RECORDS SUMMARY | 2022-02-06 06:53 | XMS_ITS | Encounter Summary ---
:1955 Author Organization [facility] Address [address] [place] [address] Care Team Providers Name Role Phone Vianney Barrera APRN, C.N.P., M.S.N. Primary Care Provider [phone] Reason for Visit Reason Comments Anticoagulation Encounter Details Date Type Department Care Team Description 07/24/2018 Documentation Division of [facility] Krishna Marreroroxana Internal Medicine, Romy Fernández APRN, [facility], in C.N.P. [place], [place] [address] [place] [phone] Social History Tobacco Use Types Packs/Day [...] do you attend gnosticism or Never 2018 yazidi services? Do you [...] 07/27/2018 Since patient will be discharging from [facility] 07/25/2018, she needs to have next INR scheduled through primary care provider. INR due 07/27/2018. documented in this encounter Plan of Treatment Not on filedocumented as of this encounter Visit Diagnoses Not on filedocumented in this encounter Additional Health Concerns Assessment Noted Time PHQ-9 Depression Total Score: 11 05/04/2013 4:05 PM CS T documented as of this encounter Care Teams Insurance Law Specialist Relationship Specialty Start Date End Date Vianney Barrera APRN, C.N.P., PCP - General Internal Medicine 07/06/18 07/26/18 M.S.N. [address] [place] [address] documented as of this encounter
--- OUTSIDE RECORDS SUMMARY | 2022-02-06 06:54 | XMS_ITS | Encounter Summary ---
:1955 Author Organization [facility] Address [address] [place] [address] Care Team Providers Name Role Phone Unavailable [...] do you attend episcopalian or Never 2018 yarsani services? Do you [...]
--- OUTSIDE RECORDS SUMMARY | 2022-02-06 06:54 | XMS_ITS | Encounter Summary ---
:1955 Author Organization [facility] Address [address] [place] [address] Care Team Providers Name Role Phone Unavailable [...] do you attend restoration or Never 2018 jewish services? Do you [...]
--- OUTSIDE RECORDS SUMMARY | 2022-02-06 06:54 | XMS_ITS | Encounter Summary ---
:1955 Author Organization [facility] Address [address] [place] [address] Care Team Providers Name Role Phone Vianney Barrera APRN, C.N.P., M.S.N. Primary Care Provider [phone] Encounter Details Date Type Department Care Team Description 06/29/2018 - Hospital Encounter [facility] StaceyBola thompson Renita Nathan.B.S. [address] [place] [id number] Flutter Atrial (HCC) (Primary Dx); [facility]2018 [facility] Decline Functional Status; [facility], Fourth Floor [address] [place] [id number] Social History Tobacco Use Types Packs/Day [...] do you attend anabaptist or Never 2018 confucianism services? Do you [...] Petra Dillard M.D. Discharge Provider Team: T Count includes the [facility] PRINCIPAL DIAGNOSIS Flutter Atrial (HCC) DISMISSAL [...] y.o. female who was admitted to the [facility] Service for management of atrial flutter. She has a past medical history of recurrent atrial flutter, hypertension, chronic diastolic heart failure, hyperlipidemia, depression with anxiety and dependent personality disorder. She was recently admitted at the [facility] from [...] weakness and decreased caregiver support at home. prison facility placement was recommended post-discharge. Social work assisted with discharge planning. Patient discharged in stable condition on 07/06/2018 to [facility]. DIAGNOSTIC TESTS EC07/03/2018 Atrial flutter with [...] warfarin Dixon Iris Roula Home Medication Instructions THOMAS:[id number] Printed on:07/06/18 7009 Medication Information acetaminophen (TYLENOL) 500 mg tablet Take 2 tablets (1,000 mg total) by mouth every 6 (six) hours as needed for pain or fever. albuterol (PROAIR HFA) 90 mcg/actuation inhaler Inhale 1-2 puffs every 4 (four) hours as needed for shortness of breath. epvwtbc-whftdhvdkrbdi-novertzd (EXCEDRIN MIGRAINE) 250-250-65 mg per tablet Take [...] atrial thrombus; INR goal 2.5-3.5. DISCHARGE DISPOSITION: Senior Living Facility [3] CONDITION ON DISCHARGE: Stable. DIET [...] AM CDT You were discharged from the [facility]. [...] on 07/02/2018 by Tommy Rogers Contact information: [facility], [address] [place], 07/03/2018 I have reviewed & agree with analysis and recommendations; Ally Canela P.T., D.P.T. Discharge Instr - Non [place] Follow-UpsFoKellee perales - 07/01/2018 10:11 AM CDT * Take a copy of your dismissal paperwork with you to your appointments. * [place] June: 11:00 a.m. - Dr. Radha Parish, care provider, hospital follow up visit, at [facility]. [facility] [place], [place] You may have outpatient appointments at [facility] that changed during your hospitalization. Refer to your [facility] Patient Appointment Guide (PAG) for the most current schedule of appointments anddetails instructions of tests / procedures. Call [phone] if you did not receive a PAG or need to CANCEL any [facility] appointment(s). documented in this encounter Medications [...] 6 hours PRN 07/06/18 0841 07/06/18 0000 erkmmfs-qrczvfoxvuuws-lqnrfoyw (EXCEDRIN MIGRAINE) 250-250-65 mg per tablet 1-2 tablet oral As needed 07/06/18 0841 06/29/18 1816 acetaminophen tablet 1,000 mg (TYLENOL) Comments: Use for patients with no hepatic disease 1,000 mg oral Every 6 hours PRN 06/29/18 1817 Potentiating Start Dose/Rate Route Frequency Ordered Stop 07/06/18 0000 acetaminophen (TYLENOL) 500 mg tablet 1,000 mg oral Every 6 hours PRN 07/06/18 0841 07/06/18 0000 cpyeipl-aoaxbbrxoyyvp-ewkvhqgd (EXCEDRIN MIGRAINE) 250-250-65 mg per tablet 1-2 [...] finding with goal INR 2.5-3.5 per business system consultant. INR is therapeutic at 2.7 after [...] per service. Valerie Myers Pharm.D., R.Ph. Contact [phone] with any questions about this note. Petra [...] finding with goal INR 2.5-3.5 per business system consultant. INR is therapeutic at 2.7 after [...] date/range tbd Lissette Breen, Pharm.DEdilma, R.Ph. Contact [phone] with any questions about this note. Petra [...] finding with goal INR 2.5-3.5 per business system consultant. Patient was taking rivaroxaban with last [...] date/range tbd Lissette Breen Pharm.D., R.Ph. Contact [phone] with any questions about this note. Petra Dillard M.D. - 07/03/2018 6:22 PM CDT I agree with the daily progress note, history, physical and management plan as outlined by Oralia Zhong with the below changes and additions. Mila Quezada L.I.C.S.W., M.S.W. - 07/03/2018 3:19 PM CDT SUBJECTIVE Referral Data Referral Source: Early Screen for Discharge Planning Referral Reason: Discharge Planning Discharge Planning: Senior Living Facility The patient was seen for ongoing discharge needs. A list of mcfp facility options (that patient/family geographically resides or requests) has been provided to and reviewed with patient/family. Disclaimers: Financial disclosure provided informing patient of our ownership and financial relationship of the [facility]/home health & hospice agencies. Reviewed insurance coverage, provided patient with in-network options if applicable. Patient/family have indicated a preference for the facility/agency below. patient and family declined additional resources. Provided the patient with a referral update while her son was present. They agreed that their preference would be for [facility] as the son lives nearby. OBJECTIVE Anticipated [...] Address Phone Number Fax Number Kaity Oquendo [facility] [address] [facility] [address] [phone] Contact: nursing Transportation oxygen: No oxygen needed. PER KAITY OQUENDO: ?? Our class c driver will pick her at the EAST/PRU doors ??with our w/c on 07/06 at 10am. ?? The class c driver will bring a portable O2 tank for transport if needed. ?? The patient must have had a bowel movement within 24 hrs of discharge. ?? The dismissal summary and orders must include an MD signature on the day of discharge and a diagnosis with each medication ordered. A TRIMMING PRESS OPERATOR signature is NOT acceptable. ?? Any substitutions of current IV, IM, oral and mist medication orders [facility] may potentiate cancellation of the [...] WORK: - Pre-admission screen has been completed. ([id number]) - Will continue to follow. Adalberto Castro, [...] seated rest break. Training/Intervention: DGI-4, cues to crab picker feet and step big Response: DGI-4: [...] finding with goal INR 2.5-3.5 per business system consultant. Patient was taking rivaroxaban with last dose 06/30 at 1600. INR stagnant. Will in crease dose to 7.5mg. The pharmacist team will continue to follow patient's clinical progress daily until discharge from the hospital. When patient discharged, discharge plan is for discharge warfarin dose: tbd mg Post Hospital follow up tbd INR recheck date/range tbd So Jovel Pharm.D., R.Ph. Contact [phone] with any questions about this note. Oralia Ricks APRN, C.N.P. - 07/03/2018 7:42 AM CDT [facility] CARDIOLOGY INPATIENT PROGRESS NOTE SUBJECTIVE Ms. [...] flutter. She is status post cardioversion in [place] and had some some issues with noncompliance [...] completed and skilled care was recommended. --social services specialist seeking skilled care placement VTE: Heparin IV GI: Pantoprazole Code Status: Full Code Disposition: Home - self care Oralia Ricks APRN, C.N.P. 07/03/18 [facility] Heart Rhythm [facility] Douglas Ibarra M.B.BEdilmaS. - 07/02/2018 5:46 PM CDT ASSESSMENT / PLAN Ms. Metcalf is qualified for a mcfp facility. From a heart rhythm perspective, she [...] are no restrictions. CT CT Job ID: [id number] Priyanka Emerson R.N. - 07/02/2018 2:21 PM [...] with patient and go over dismissal options. Asparagus Cutter will continue to follow if any needs [...] atrial appendage thrombus CT CT Job ID: [id number] So Jovel, Pharm.D., R.Ph. - 07/02/2018 8:18 [...] finding with goal INR 2.5-3.5 per business system consultant. Patient was taking rivaroxaban with last [...] date/range tbd So Jovel, PharmCarlos, R.Ph. Contact [phone] with any questions about this note. Oralia Ricks, NO, C.N.P. - 07/02/2018 7:08 AM CDT [facility] Heart Rhythm [facility] CARDIOLOGY INPATIENT PROGRESS NOTE SUBJECTIVE Ms. Metcalf was seen and examined on morning rounds. She is alert and pleasant. She has no concerns. She reports that she will be staying with her youngest son in [place] for 2 weeks. TELEMETRY 138 Atrial flutter [...] flutter. She is status post cardioversion in [place] and had some some issues with noncompliance [...] of potassium --PM&R safety and cognitive evaluation --tsa screener is following closely for homegoing issues. VTE: Heparin IV GI: Pantoprazole Code Status: Full Code Disposition: Home - self care Oralia Ricks APRN, C.N.P. 07/02/18 [facility] Heart Rhythm [facility] Tommy Rogers - 07/01/2018 4:59 PM [...] finding with goal INR 2.5-3.5 per business system consultant. Patient was taking rivaroxaban with last [...] date/range tbd So Jovel Pharm.D., R.Ph. Contact [phone] with any questions about this note. Markel [...] will proceed today. CT CT Job ID: [id number] Oralia Ricks APRN, C.N.P. - 07/01/2018 7:37 AM CDT T Count includes the [facility] CARDIOLOGY INPATIENT PROGRESS NOTE SUBJECTIVE Ms. [...] flutter. She is status post cardioversion in [place] and had some some issues with noncompliance [...] self care Oralia Ricks APRN, C.N.P. 07/01/18 [facility] Ken Tommy Federico - 06/30/2018 1:56 [...] Richey P.A.-C. - 06/30/2018 10:36 AM CDT [facility] CARDIOLOGY INPATIENT PROGRESS NOTE SUBJECTIVE Ms. Metcalf was seen and examined on morning rounds in conjunction with my business system consultant Dr. Ibarra.Patient reports no events overnight. [...] admitted with flutter with rapid rates in [place] spontaneously converted to normal rhythm. She is [...] and diltiazem drip. CT CT Job ID: [id number] Antelmo Richey P.A.-C. - 06/29/2018 7:10 PM CDT Images from the original note were not included. CARDIOLOGY INPATIENT ADMISSION NOTE CHIEF COMPLAINT/REASON FOR VISIT Atrial flutter Collaborating physician: Douglas Ibarra M.B.B.S. Admitting service: T Count includes the [facility] HISTORY OF PRESENT ILLNESS Ms. Metcalf is a 63 y.o. female who presented to the [facility] Service for management of atrial flutter. She has medical comorbidities including, but not limited to: Atrial flutter, hypertension, hyperlipidemia, type 2 diabetes on metformin (A1c 6.5 on 05/11/2018), CHAPITO not using CPAP, iron deficiency anemia, depression with anxiety, migraine, mild persistent asthma, fibromyalgia, polypharmacy, migraine headaches. The patient was initially admitted at [facility] for management of paroxysmal atrial fibrillation [...] every 4 (four) hours as needed. ??? tkfpwhb-qhtqshmnnhgqr-dfnjregd (EXCEDRIN MIGRAINE) 250-250-65 mg per tablet, Take [...] flutter. She was recently admitted at the [facility] from 06/22 through 06/23/2018, [...] to diltiazem. The patient has an elevated [id number] asc score for atrial fibrillation Stroke risk [...] questions answered. Outcome Measures Current ADL Status: [facility] Inpatient Short Form: Putting on and [...] CMS Modifier: CJ Interpretation: Clinicians answer the [facility] Inpatient Short Form based on observed [...] patient, including my status as a mandated bolt sorter. Discussed the current discharge recommendation for rehab placement, which patient stated being agreeable to. She shared that if rehab is unable to be obtained, she would be able to stay with her son for a few weeks before returning home. A list of mcfp facility options (that patient/family geographically resides or requests) has been provided to and reviewed with patient/family. Disclaimers: Financial disclosure provided informing patient of our ownership and financial relationship of the [facility] beds, home health, and hospice agencies. Reviewed insurance coverage, provided patient with in-network options if applicable. Patient was agreeable to the following referrals, which were sent on her behalf: [facility], [facility], [facility], and [facility]. Shared that social work would initiate those referrals, and would provide an update when responses are received from the facilities. DEMOGRAPHIC INFORMATION Referral Source: Early Screen for Discharge Planning Referral Reason: Discharge Planning Discharge Planning: Senior Living Facility Person(s) present during interview: Patient Primary care clinic and provider: [facility] / Dr. Kandace Mckeon Primary Language: Azerbaijani Movie Critic Services Used: No Citizenship: [place] Citizen Resident [...] disability, and the other son resides in [place] and is willing to have patient stay with him for a few weeks post-discharge. Support Systems: Children. We have not received permission to contact them. 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 Psychosocial Risk Factors impacting [...] Behavior: Forgetful Communication: Talks, Understands speaking, Understands Azerbaijani It is anticipated that the patient will need assistance with Medication Set- up/Administration, Housekeeping, Transportation Use (drive car, use taxi/bus). ASSISTIVE DEVICES Patient has the following equipment: Walker, Grab Bars - Wall, Grab Bars - Toilet Patient anticipates potentially needing the following additional equipment: Walker, Grab Bars - Wall, Grab Bars - Toilet JIG AND FIXTURE REPAIRER Formal and Informal Resources: Home Health Care: [...] Discharge Planning Discussion/Education Options Provided REFERRALS: ?? [facility] ?? [facility] ?? [facility] ?? [facility] ?? [facility] ?? [facility] ?? [facility] PLAN ?? Motivation for treatment/plan: fair [...] Prior Function / Occupational Profile Level of [place]: Independent with ADLs and functional transfers, Needs [...] clear leftlower extremity. Training/Intervention: MiniBEST-13, cues to crab picker feet, assistantce at gait belt to [...] by the 3rd box when cue dot crab picker feet. Patient reached max heart rate of 137 bpm following 10 meters of ambulation and began to feel symptoms of her heart racing. Education provided this session: continued ambulation with nursing while self- monitoring for symptoms of dyspnea with exertion; the benefits of mcfp facilities and their role in therapy The patient/family educated on safe transfer techniques with functional mobility/activity. The following coordination of care occurred today: Contacted Patient's nurse and set up worker regarding discharge/safety recommendations, equipment needs/recommendations and [...] Who was present during the interview?: Patient Movie Critic Services Used: No Patient Information Primary Caregiver: [...] Behavior: Forgetful Communication: Talks, Understands speaking, Understands Azerbaijani Environmental Supports Home Environment: Apartment Anticipated Modifications [...] going needs. I reviewed my role of Asparagus Cutter. Patient reviewed her current hospitalization and appears [...] support system; reviewing that her primary care process manager is herself. She reports that she [...] weeks and is hoping [facility]ove to [facility] in an assisted living facility. Patient did add that her son does work fulltime, so he will not be home to give her 24 hour assistance. I have a call into her son, Yaya to confirm a safe transition back to home. (JULIANNA on file) Son was unavailable, so I left a message. I will start the reconnection process with the [facility] company and follow up with the discharge plan later today. Spoke to patient's son, Yaya, about dismissal plan for patient, Yaya said patient was going to stay with him for a couple weeks and then go back home to [place]. Yaya said she does live with his [...] her to his home. 5. Reconnections needed [facility] Signed by: Priyanka Emerson R.N. 06/30/2018 documented [...] disorder. She was recently admitted at the [facility] from 06/22/2018 - 06/23/2018, where she [...] weakness and decreased caregiver support at home. prison facility placement was recommended post-discharge. Social work assisted with discharge planning. Patient discharged in stable condition on 07/06/2018 to [facility]. documented in this encounter Plan of [...] CBC without Differential (07/06/2018 6:26 AM CDT) [facility] Method Time Signature Hemoglobin 12.8 11.6 - 07/06/2018 [facility] 15.0 g/dL 6:53 AM CDT LABORATORIES - [facility] Hematocrit 39.7 35.5 - 07/06/2018 [facility] 44.9 % 6:53 AM CDT LABORATORIES [facility] Erythrocytes 4.55 3.92 - 07/06/2018 [facility] 5.13 6:53 AM CDT LABORATORIES - x10(12)/L [facility] MCV 87.3 78.2 - 07/06/2018 [facility] 97.9 fL 6:53 AM CDT LABORATORIES - [facility] RBC Distrib 14.3 12.2 - 07/06/2018 [facility] Width 16.1 % 6:53 AM CDT LABORATORIES - [facility] Platelet Count 475 (H) 157 - 371 07/06/2018 [facility] x10(9)/L 6:53 AM CDT LABORATORIES - [facility] Leukocytes 9.8 (H) 3.4 - 9.6 07/06/2018 [facility] x10(9)/L 6:53 AM CDT [facility]ORATORIES - [facility] Specimen Anatomical Collection Method Collection Time Receive d Time (Source) Location / / Volume Laterality Blood (Blood, 07/06/2018 6:26 AM 07/07/19 19 6:45 Venous) CDT AM CDT Oralia Ricks APRN, C.N.P. LAB BLOOD ADD-ON Performing Organization Address City/[facility] Phon e Number [facility] LABORATORIES - [address] (ABNORMAL) Prothrombin Time (PT/INR) (07/06/2018 6:26 AM CDT) [facility] Method Time Signature Prothrombin 28.9 (H) 9.4 - 07/06/2018 [facility] Time, P 12.5 sec 7:06 AM CDT LABORATORIES - [facility] INR 2.6 0.9 - 1.1 07/06/2018 [facility] 7:06 AM CDT [facility]ATORIES - [facility] Comment: ----ADDITIONAL INFORMATION---- Standard intensity warfarin therapeutic range: 2.0 to 3.0 ?? High intensity warfarin therapeutic rang e: 2.5 to 3.5 Specimen Anatomical Collection Method Collection Time Receive d Time (Source) Location / / Volume Laterality Blood (Blood, 07/06/2018 6:26 AM 07/07/19 19 6:45 Venous) CDT AM CDT Oralia Ricks APRN, C.N.P. LAB BLOOD ADD-ON Performing Organization Address City/[facility] Code Phon e Number [facility] LABORATORIES - [address] [place] [phone] 05 [facility] Basic Metabolic Panel (07/06/2018 6:26 AM CDT) Analysis Performed At Patho logist Time Signature Potassium, S 4.3 3.6 - 5.2 07/06/2018 [facility] mmol/L 7:25 AM CDT [facility] Sodium, S 139 135 - 145 07/06/2018 [facility] mmol/L 7:25 AM CDT LABORATORIES [facility] Chloride, S 102 98 - 107 07/06/2018 [facility] mmol/L 7:25 AM CDT LABORATORIES [facility] Bicarbonate, S 24 22 - 29 07/06/2018 [facility] mmol/L 7:25 AM CDT LABORATORIES [facility] Anion Gap 13 7 - 15 07/06/2018 [facility] 7:25 AM CDT LABORATORIES [facility] BUN (Blood Urea 19 6 - 21 07/06/2018 [facility] Nitrogen), S mg/dL 7:25 AM T [facility] Creatinine 0.99 0.59 - 07/06/2018 [facility] 1.04 mg/dL 7:25 AM CDT [facility] eGFR-Non 62 >=60 07/06/2018 [facility] Black/ mL/min/BSA 7:25 AM CDT LABORATORIES [facility] Comment: ----ADDITIONAL INFORMATION---- Estimated GFR calculated using the 2009 CKD_EPI creatinine equation. eGFR-Black/ 71 >=60 mL/min/BSA 07/06/2018 7:25 [facility] CDT [facility] Comment: ----ADDITIONAL INFORMATION---- Estimated GFR calculated using the 2009 CKD_EPI creatinine equation. Calcium, Total, S 9.3 8.8 - 10.2 mg/dL 07/06/2018 7:25 AM [facility] CDT [facility] Glucose, S 107 70 - 140 mg/dL 07/06/2018 7:25 [facility] Specimen Anatomical Collection Method Collection Time Receive d Time (Source) Location / / Volume Laterality Blood (Blood, 07/06/2018 6:26 AM 07/07/19 19 6:45 Venous) CDT AM CDT Bella Danielson P.A.-C., M.S. LAB BLOOD ADD-ON Performing Organization Address City/State/ZIP Code Phon e Number [facility] - [address] [place] [phone] [facility] (ABNORMAL) CBC without Differential (07/05/2018 6:34 AM CDT) [facility] Method Time Signature Hemoglobin 13.2 11.6 - 07/05/2018 [facility] 15.0 g/dL 7:14 AM CDT LABORATORIES - [facility] Hematocrit 42.1 35.5 - 07/05/2018 [facility] 44.9 % 7:14 AM CDT LABORATORIES - [facility] Erythrocytes 4.75 3.92 - 07/05/2018 [facility] 5.13 7:14 AM CDT LABORATORIES - x10(12)/L [facility] MCV 88.6 78.2 - 07/05/2018 [facility] 97.9 fL 7:14 AM CDT [facility] RBC Distrib 14.1 12.2 - 07/05/2018 [facility] Width 16.1 % 7:14 AM CDT [facility] Platelet Count 490 (H) 157 - 371 07/05/2018 [facility] x10(9)/L 7:14 AM CDT [facility] - [facility] Leukocytes 9.6 3.4 - 9.6 07/05/2018 [facility] x10(9)/L 7:14 AM CDT [facility] Specimen Anatomical Collection Method Collection Time Receive d Time (Source) Location / / Volume Laterality Blood (Blood, 07/05/2018 6:34 AM 07/06/19 19 7:11 Venous) CDT AM CDT Oralia Ricks APRN, C.N.P. LAB BLOOD ADD-ON Performing Organization Address City/State/[facility] Phon e Number [facility]ATORIES - [address] [place] [phone] [facility] (ABNORMAL) Prothrombin Time (PT/INR) (07/05/2018 6:33 AM CDT) [facility] [employer] Method Time Signature Prothrombin 30.5 (H) 9.4 - 07/05/2018 [facility] Time, P 12.5 sec 7:36 AM CDT LABORATORIES [facility] INR 2.7 0.9 - 1.1 07/05/2018 [facility] 7:36 AM CDT [facility] Comment: ----ADDITIONAL INFORMATION---- Standard intensity warfarin [...] Address City/State/ZIP Code Phon e Number [facility]ATORIES - [address] [place], [place] [address] [facility] (ABNORMAL) Basic Metabolic Panel (07/05/2018 6:33 AM CDT) [facility] Method Time Signature Potassium, S 4.6 3.6 - 5.2 07/05/2018 [facility] mmol/L 7:49 AM CDT LABORATORIES - [facility] [facility] Sodium, S 139 135 - 145 07/05/2018 [facility] mmol/L 7:49 AM CDT LABORATORIES - [facility] Chloride, S 100 98 - 107 07/05/2018 [facility] mmol/L 7:49 AM CDT LABORATORIES - [facility] Bicarbonate, S 26 22 - 29 07/05/2018 [facility] mmol/L 7:49 AM CDT LABORATORIES - [facility] Anion Gap 13 7 - 15 07/05/2018 [facility] 7:49 AM CDT LABORATORIES - [facility] BUN (Blood 21 6 - 21 07/05/2018 [facility] Urea mg/dL 7:49 AM CDT LABORATORIES - Nitrogen), S [facility] Creatinine 1.20 (H) 0.59 - 07/05/2018 [facility] 1.04 7:49 AM CDT LABORATORIES - mg/dL [facility] eGFR-Non 49 (L) >=60 07/05/2018 [facility] Black/ mL/min/BS 7:49 AM CDT LABORATORIES - [place] [facility] Comment: ----ADDITIONAL INFORMATION---- Estimated GFR calculated using the 2009 CKD_EPI creatinine equation. eGFR-Black/ 56 (L) >=60 mL/min/BSA 07/05/2018 7:49 [facility] [place] AM CDT LABORATORIES - [facility] Comment: ----ADDITIONAL INFORMATION---- Estimated GFR calculated using the 2009 CKD_EPI creatinine equation. Calcium, Total, S 9.3 8.8 - 10.2 mg/dL 07/05/2018 7:49 AM [facility] CDT LABORATORIES - [facility] S Glucose, S 115 70 - 140 mg/dL 07/05/2018 7:49 AM [facility] CDT LABORATORIES - [facility] S Specimen Anatomical Collection Method Collection Time Receive d Time (Source) Location / / Volume Laterality Blood (Blood, 07/05/2018 6:33 AM 07/06/19 19 7:11 Venous) CDT AM CDT Kadeem Butts APRNN.P. LAB BLOOD ADD-ON Performing Organization Address City/[facility] Phon e Number [facility] LABORATORIES - [address] [phone] [facility] Magnesium (07/05/2018 6:29 AM CDT) P athologist Signature Magnesium, S 1.8 1.7 - 2.3 07/05/2018 [facility] mg/dL 10:34 AM CDT LABORATORIES - [facility] Specimen Anatomical Collection Method Collection Time Receive d Time (Source) Location / / Volume Laterality Blood (Blood, 07/05/2018 6:29 AM 07/06/19 19 Venous) CDT 10:19 AM CDT Bella Danielson P.A.-C., M.S. LAB BLOOD ADD-ON Performing Organization Address City/[facility] Code Phon e Number [facility] LABORATORIES - [address] (ABNORMAL) Prothrombin Time (PT/INR) (07/04/2018 6:30 AM CDT) Patholo gist Method Time Signature Prothrombin 20.8 (H) 9.4 - 07/04/2018 [facility] Time, P 12.5 sec 7:02 AM CDT LABORATORIES - [facility] INR 1.9 0.9 - 1.1 07/04/2018 [facility] 7:02 AM CDT LABORATORIES - [facility] Comment: ----ADDITIONAL INFORMATION---- Standard intensity warfarin therapeutic range: 2.0 to 3.0 ?? High intensity warfarin therapeutic rang e: 2.5 to 3.5 Specimen Anatomical Collection Method Collection Time Receive d Time (Source) Location / / Volume Laterality Blood (Blood, 07/04/2018 6:30 AM 07/05/19 19 6:45 Venous) CDT AM CDT Oralia Ricks APRN, C.N.P. LAB BLOOD ADD-ON Performing Organization Address [facility] Phon e Number [facility] LABORATORIES - [address] [phone] [facility] (ABNORMAL) CBC without Differential (07/04/2018 6:30 AM CDT) [facility] [employer] Method Time Signature Hemoglobin 13.2 11.6 - 07/04/2018 [facility] 15.0 g/dL 6:54 AM CDT LABORATORIES - [facility] Hematocrit 41.4 35.5 - 07/04/2018 [facility] 44.9 % 6:54 AM CDT LABORATORIES - [facility] Erythrocytes 4.70 3.92 - 07/04/2018 [facility] 5.13 6:54 AM CDT LABORATORIES - x10(12)/L [facility] MCV 88.1 78.2 - 07/04/2018 [facility] 97.9 fL 6:54 AM CDT LABORATORIES - [facility] RBC Distrib 14.2 12.2 - 07/04/2018 [facility] Width 16.1 % 6:54 AM CDT LABORATORIES - [facility] Platelet Count 492 (H) 157 - 371 07/04/2018 [facility] x10(9)/L 6:54 AM CDT LABORATORIES - [facility] Leukocytes 9.1 3.4 - 9.6 07/04/2018 [facility] x10(9)/L 6:54 AM CDT LABORATORIES - [facility] Specimen Anatomical Collection Method Collection Time Receive d Time (Source) Location / / Volume Laterality Blood (Blood, 07/04/2018 6:30 AM 07/05/19 19 6:45 Venous) CDT AM CDT Oralia Ricks APRN, C.N.P. LAB BLOOD ADD-ON Performing Organization Address City/[facility] Phon e Number [facility] LABORATORIES - [address] [phone] [facility] (ABNORMAL) Basic Metabolic Panel (07/04/2018 6:30 AM CDT) [facility] [employer] Method Time Signature Potassium, S 4.7 3.6 - 5.2 07/04/2018 [facility] mmol/L 7:20 AM CDT LABORATORIES - [facility] Sodium, S 138 135 - 145 07/04/2018 [facility] mmol/L 7:20 AM CDT LABORATORIES - [facility] Chloride, S 100 98 - 107 07/04/2018 [facility] mmol/L 7:20 AM CDT LABORATORIES - [facility] Bicarbonate, S 25 22 - 29 07/04/2018 [facility] mmol/L 7:20 AM CDT LABORATORIES - [facility] Anion Gap 13 7 - 15 07/04/2018 [facility] 7:20 AM CDT LABORATORIES - [facility] BUN (Blood 18 6 - 21 07/04/2018 [facility] Urea mg/dL 7:20 AM CDT LABORATORIES - Nitrogen), S [facility] Creatinine 1.06 (H) 0.59 - 07/04/2018 [facility] 1.04 7:20 AM CDT LABORATORIES - mg/dL [facility] eGFR-Non 57 (L) >=60 07/04/2018 [facility] Black/ mL/min/BS 7:20 AM CDT LABORATORIES - [place] [facility] Comment: ----ADDITIONAL INFORMATION---- Estimated GFR calculated using the 2009 CKD_EPI creatinine equation. eGFR-Black/ 65 >=60 mL/min/BSA 07/04/2018 7:20 [facility] [place] AM CDT LABORATORIES - [facility] Comment: ----ADDITIONAL INFORMATION---- Estimated GFR calculated using the 2009 CKD_EPI creatinine equation. Calcium, Total, S 9.4 8.8 - 10.2 mg/dL 07/04/2018 7:20 AM [facility] CDT LABORATORIES - [facility] S Glucose, S 138 70 - 140 mg/dL 07/04/2018 7:20 AM [facility] CDT LABORATORIES - [facility] S Specimen Anatomical Collection Method Collection Time Receive d Time (Source) Location / / Volume Laterality Blood (Blood, 07/04/2018 6:30 AM 07/05/19 19 6:45 Venous) CDT AM CDT Oralia Ricks APRN, C.N.P. LAB BLOOD ADD-ON Performing Organization Address City/State/ZIP Code Phon e Number [facility] LABORATORIES - [address] [place], [place] [address] [facility] ECG 12 Lead (07/03/2018 9:41 AM CDT) [facility] gist Method Time Signature Ventricular 80 BPM MUSE Rate ECG/Min QRSD Interval 94 ms MUSE QT Interval 430 ms MUSE QTC Interval 497 ms MUSE P [place] -113 degrees MUSE R [place] 94 degrees MUSE T Wave [place] -74 degrees MUSE CODED DIAGNOSIS Atrial MUSE [...] (07/03/2018 5:30 AM CDT) Analysis Performed At [facility] logist Time Signature Activated 79 (H) 25 - 37 07/03/2018 [facility] Partial sec 6:26 AM CDT LABORATORIES - Thrombopl [facility] Specimen Anatomical Collection Method Collection Time Receive d Time (Source) Location / / Volume Laterality Blood (Blood, 07/03/2018 5:30 AM 07/04/19 19 6:07 Venous) CDT AM CDT Douglas Pham LAB BLOOD ADD-ON Performing Organization Address City/State/ZIP Code Phon e Number [facility] LABORATORIES - [address] [place], [place] [address] [facility] (ABNORMAL) Prothrombin Time (PT/INR) (07/03/2018 5:30 AM CDT) Patholo gist Method Time Signature Prothrombin 14.2 (H) 9.4 - 07/03/2018 [facility] Time, P 12.5 sec 6:26 AM CDT LABORATORIES - [facility] INR 1.3 0.9 - 1.1 07/03/2018 [facility] 6:26 AM CDT LABORATORIES - [facility] Comment: ----ADDITIONAL INFORMATION---- Standard intensity [...] Address City/State/ZIP Code Phon e Number [facility] LABORATORIES - [address] [place], [place] [address] [facility] (ABNORMAL) CBC without Differential (07/03/2018 5:30 AM CDT) [facility] Method Time Signature Hemoglobin 13.6 11.6 - 07/03/2018 [facility] 15.0 g/dL 6:16 AM CDT LABORATORIES [facility] Hematocrit 43.6 35.5 - 07/03/2018 [facility] 44.9 % 6:16 AM CDT [facility] Erythrocytes 4.90 3.92 - 07/03/2018 [facility] 5.13 6:16 AM CDT LABORATORIES - x10(12)/L [facility] MCV 89.0 78.2 - 07/03/2018 [facility] 97.9 fL 6:16 AM CDT LABORATORIES [facility] RBC Distrib 14.2 12.2 - 07/03/2018 [facility] Width 16.1 % 6:16 AM CDT LABORATORIES [facility] Platelet Count 531 (H) 157 - 371 07/03/2018 [facility] x10(9)/L 6:16 AM CDT LABORATORIES - [facility] Leukocytes 8.7 3.4 - 9.6 07/03/2018 [facility] x10(9)/L 6:16 AM CDT LABORATORIES [facility] Specimen Anatomical Collection Method Collection Time Receive d Time (Source) Location / / Volume Laterality Blood (Blood, 07/03/2018 5:30 AM 04/12/20 19 6:07 Venous) CDT AM CDT Kadeem Carr APRNNEdilmaPEdilma LAB BLOOD ADD-ON Performing Organization Address City/State/ZIP Code Phon e Number [facility] LABORATORIES - [address] [place], [place] [address] [facility] Basic Metabolic Panel (07/03/2018 5:30 AM CDT) Analysis Performed At Patho logist Time Signature Potassium, S 4.8 3.6 - 5.2 07/03/2018 [facility] mmol/L 6:41 AM CDT LABORATORIES - [facility] Sodium, S 138 135 - 145 07/03/2018 [facility] mmol/L 6:41 AM CDT LABORATORIES - [facility] Chloride, S 100 98 - 107 07/03/2018 [facility] mmol/L 6:41 AM CDT LABORATORIES - [facility] Bicarbonate, S 26 22 - 29 07/03/2018 [facility] mmol/L 6:41 AM CDT LABORATORIES [facility] Anion Gap 12 7 - 15 07/03/2018 [facility] 6:41 AM CDT LABORATORIES [facility] BUN (Blood Urea 16 6 - 21 07/03/2018 [facility] Nitrogen), S mg/dL 6:41 AM CDT LABORATORIES [facility] Creatinine 0.94 0.59 - 07/03/2018 [facility] 1.04 mg/dL 6:41 AM T LABORATORIES [facility] eGFR-Non 66 >=60 07/03/2018 [facility] Black/ mL/min/BSA 6:41 AM CDT LABORATORIES [facility] Comment: ----ADDITIONAL INFORMATION---- Estimated GFR calculated using the 2009 CKD_EPI creatinine equation. eGFR-Black/ 76 >=60 mL/min/BSA 07/03/2018 6:41 [facility] [place] CDT LABORATORIES [facility] Comment: ----ADDITIONAL INFORMATION---- Estimated GFR calculated using the 2009 CKD_EPI creatinine equation. Calcium, Total, S 9.2 8.8 - 10.2 mg/dL 07/03/2018 6:41 AM [facility] CDT LABORATORIES [facility] Glucose, S 116 70 - 140 mg/dL 07/03/2018 6:41 AM [facility] CDT LABORATORIES [facility] Specimen Anatomical Collection Method Collection Time Receive d Time (Source) Location / / Volume Laterality Blood (Blood, 07/03/2018 5:30 AM 07/04/19 19 6:07 Venous) CDT AM CDT Oralia Ricks APRN, C.N.P. LAB BLOOD ADD-ON Performing Organization Address City/[facility]/ZIP Code Phon e Number [facility] LABORATORIES - [address] [place], [place] [address] [facility] Glucose, POCT (07/03/2018 5:29 AM [...] Provider LAB POCT ORDERABLES-MANUAL Performing Organization Address City/[facility] Code Phon e Number [facility] SERVICES [address] [place] [address] Glucose, POCT (07/03/2018 2:13 AM CDT) Analysis Performed At [facility] logist Time Signature Glucose, POCT, 114 70 - 140 07/03/2018 [facility] B mg/dL 2:15 AM CDT SERVICES Site Capillary 07/03/2018 [facility] 2:15 AM CDT SERVICES Specimen Anatomical Collection Method Collection Time Receive d Time (Source) Location / / Volume Laterality Blood 07/03/2018 2:13 AM 9 2:15 CDT AM CDT Unknown Provider LAB POCT ORDERABLES-MANUAL Performing Organization Address City/[facility] Phon e Number [facility] SERVICES [address] [place] [address] (ABNORMAL) APTT (Activated Partial Thromboplastin Time) (07/02/2018 9:01 PM CDT) Analysis Performed At Path logist Time Signature Activated 88 (H) 25 - 37 07/02/2018 [facility] Partial sec 10:04 PM CDT LABORATORIES - Thrombopl [facility] Specimen Anatomical Collection Method Collection Time Receive d Time (Source) Location / / Volume Laterality Blood (Blood, 07/02/2018 9:01 PM 07/03/19 19 9:31 Venous) CDT PM CDT Douglas RendonSEdilma LAB BLOOD ADD-ON Performing Organization Address City/[facility]/ZIP Code Phon e Number [facility] LABORATORIES - [address] [place], [place] [address] [facility] Glucose, POCT (07/02/2018 5:34 PM [...] Provider LAB POCT ORDERABLES-MANUAL Performing Organization Address [facility] Phon e Number [facility] SERVICES [address] [place] [address] (ABNORMAL) APTT (Activated Partial Thromboplastin Time) (07/02/2018 1:27 PM CDT) Analysis Performed At Patho logist Time Signature Activated 42 (H) 25 - 37 07/02/2018 [facility] Partial sec 2:25 PM CDT LABORATORIES - Thrombopl [facility] Specimen Anatomical Collection Method Collection Time Receive d Time (Source) Location / / Volume Laterality Blood (Blood, 07/02/2018 1:27 PM 07/03/19 19 1:59 Venous) CDT PM CDT Douglas RendonS. LAB BLOOD ADD-ON Performing Organization Address City/[facility] Code Phon e Number [facility] LABORATORIES - [address] [place], [place] [address] [facility] Glucose, POCT (07/02/2018 1:16 PM [...] Provider LAB POCT ORDERABLES-MANUAL Performing Organization Address City/[facility]/ZIP Code Phon e Number [facility] LAB SERVICES [address] [place] [address] Glucose, POCT (07/02/2018 6:41 AM CDT) Analysis [...] Provider LAB POCT ORDERABLES-MANUAL Performing Organization Address City/[facility] Code Phon e Number [facility] SERVICES [address] [place] [address] Thyroid Function [place] (07/02/2018 5:23 AM CDT) P athologist Signature TSH, Sensitive 3.3 0.3 - 4.2 07/02/2018 [facility] mIU/L 9:20 AM CDT LABORATORIES - [facility] Specimen Anatomical Collection Method Collection Time Receive d Time (Source) Location / / Volume Laterality Blood (Blood, 07/02/2018 5:23 AM 07/03/19 19 8:30 Venous) CDT AM CDT Oralia Ricks APRN, C.N.P. LAB BLOOD ADD-ON Performing Organization Address City/[facility]/ZIP Code Phon e Number [facility] LABORATORIES - [address] [place], [place] [address] [facility] (ABNORMAL) APTT (Activated Partial Thromboplastin Time) (07/02/2018 5:23 AM CDT) Patholo gist Method Time Signature Activated 115 (H) 25 - 37 07/02/2018 [facility] Partial sec 6:04 AM CDT LABORATORIES - Thrombopl [facility] Time[facility] CAMPUS Specimen Anatomical Collection Method Collection Time Receive d Time (Source) Location / / Volume Laterality Blood (Blood, 07/02/2018 5:23 AM 07/03/19 19 5:34 Venous) CDT AM CDT Douglas Pham LAB BLOOD ADD-ON Performing Organization Address City/[facility] Phon e Number [facility] LABORATORIES - [address] [place], [place] [address] [facility] (ABNORMAL) Prothrombin Time (PT/INR) (07/02/2018 5:23 AM CDT) [facility] Time Signature Prothrombin 14.2 (H) 9.4 - 07/02/2018 [facility] Time, P 12.5 sec 5:51 AM CDT LABORATORIES - [facility] INR 1.3 0.9 - 1.1 07/02/2018 [facility] 5:51 AM CDT LABORATORIES - [facility] Comment: ----ADDITIONAL INFORMATION---- Standard intensity warfarin therapeutic range: 2.0 to 3.0 ?? High intensity warfarin therapeutic rang e: 2.5 to 3.5 Specimen Anatomical Collection Method Collection Time Receive d Time (Source) Location / / Volume Laterality Blood (Blood, 07/02/2018 5:23 AM 07/03/19 19 5:34 Venous) CDT AM CDT Oralia Ricks APRN, C.N.P. LAB BLOOD ADD-ON Performing Organization Address City/[facility] Phon e Number [facility] LABORATORIES - [address] [place], [place] [address] [facility] (ABNORMAL) CBC without Differential (07/02/2018 5:23 AM CDT) [facility] Method Time Signature Hemoglobin 13.6 11.6 - 07/02/2018 [facility] 15.0 g/dL 5:43 AM CDT LABORATORIES - [facility] Hematocrit 42.7 35.5 - 07/02/2018 [facility] 44.9 % 5:43 AM CDT LABORATORIES - [facility] Erythrocytes 4.87 3.92 - 07/02/2018 [facility] 5.13 5:43 AM CDT LABORATORIES - x10(12)/L [facility] MCV 87.7 78.2 - 07/02/2018 [facility] 97.9 fL 5:43 AM CDT LABORATORIES - [facility] RBC Distrib 14.1 12.2 - 07/02/2018 [facility] Width 16.1 % 5:43 AM CDT LABORATORIES - [facility] Platelet Count 511 (H) 157 - 371 07/02/2018 [facility] x10(9)/L 5:43 AM CDT LABORATORIES - [facility] Leukocytes 9.2 3.4 - 9.6 07/02/2018 [facility] x10(9)/L 5:43 AM CDT LABORATORIES - [facility] Specimen Anatomical Collection Method Collection Time Receive d Time (Source) Location / / Volume Laterality Blood (Blood, 07/02/2018 5:23 AM 07/03/19 19 5:34 Venous) CDT AM CDT Oralia Ricks APRN, C.N.P. LAB BLOOD ADD-ON Performing Organization Address City/State/ZIP Code Phon e Number [facility] LABORATORIES - [address] [place], [place] [address] [facility] (ABNORMAL) Basic Metabolic Panel (07/02/2018 5:23 AM CDT) [facility] gist Method Time Signature Potassium, S 3.6 3.6 - 5.2 07/02/2018 [facility] mmol/L 6:59 AM CDT LABORATORIES - [facility] Sodium, S 135 135 - 145 07/02/2018 [facility] mmol/L 6:59 AM CDT LABORATORIES - [facility] Chloride, S 97 (L) 98 - 107 07/02/2018 [facility] mmol/L 6:59 AM CDT LABORATORIES - [facility] Bicarbonate, S 23 22 - 29 07/02/2018 [facility] mmol/L 6:59 AM CDT LABORATORIES - [facility] Anion Gap 15 7 - 15 07/02/2018 [facility] 6:59 AM CDT LABORATORIES - [facility] BUN (Blood Urea 17 6 - 21 07/02/2018 [facility] Nitrogen), S mg/dL 6:59 AM CDT LABORATORIES - [facility] Creatinine 0.96 0.59 - 07/02/2018 [facility] 1.04 mg/dL 6:59 AM CDT LABORATORIES - [facility] eGFR-Non 64 >=60 07/02/2018 [facility] Black/ mL/min/BSA 6:59 AM CDT LABORATORIES - [facility] Comment: ----ADDITIONAL INFORMATION---- Estimated GFR calculated using the 2009 CKD_EPI creatinine equation. eGFR-Black/ 74 >=60 mL/min/BSA 07/02/2018 6:59 [facility] [place] AM CDT LABORATORIES - [facility] Comment: ----ADDITIONAL INFORMATION---- Estimated GFR calculated using the 2009 CKD_EPI creatinine equation. Calcium, Total, S 9.0 8.8 - 10.2 07/02/2018 6:59 AM [facility] mg/dL CDT LABORATORIES - [facility] S Glucose, S 163 (H) 70 - 140 mg/dL 07/02/2018 6:59 AM [facility] CDT LABORATORIES - [facility] Specimen Anatomical Collection Method Collection Time Receive d Time (Source) Location / / Volume Laterality Blood (Blood, 07/02/2018 5:23 AM 07/03/19 19 5:34 Venous) CDT AM CDT Amrita Carr APRNP. LAB BLOOD ADD-ON Performing Organization Address City/[facility] Code Phon e Number [facility] LABORATORIES - [address] [phone] [facility] (ABNORMAL) APTT (Activated Partial Thromboplastin Time) (07/01/2018 10:04 PM CDT) Analysis Performed At Patho logist Time Signature Activated 39 (H) 25 - 37 07/01/2018 [facility] Partial sec 10:35 PM CDT [facility]ATOR[facility] Specimen Anatomical Collection Method Collection Time Receive d Time (Source) Location / / Volume Laterality Blood (Blood, 07/01/2018 10:04 07/01/2018 Venous) PM CDT 10:21 PM CDT Douglas Pham LAB BLOOD ADD-ON Performing Organization Address City/[facility] Code Phon e Number [facility] LABORATORIES - [address] [address] [facility] Glucose, POCT (07/01/2018 9:49 PM CDT) P athologist Signature Glucose, POCT, 118 70 - 140 07/01/2018 [facility] B mg/dL 9:52 PM CDT SERVICES Specimen Anatomical Collection Method Collection Time Receive d Time (Source) Location / / Volume Laterality Blood 07/01/2018 9:49 PM 9 9:52 CDT PM CDT Unknown Provider LAB POCT ORDERABLES-MANUAL Performing Organization Address City/[facility]/ZIP Code Phon e Number [facility] LAB SERVICES [address] [place] [address] (ABNORMAL) APTT (Activated Partial Thromboplastin Time) (07/01/2018 9:12 PM CDT) Analysis Performed At Path logist Time Signature Activated 20 (L) 25 - 37 07/01/2018 [facility] Partial sec 10:53 PM CDT LABORATORIES - Thrombopl [facility] Specimen Anatomical Collection Method Collection Time Receive d Time (Source) Location / / Volume Laterality Blood (Blood, 07/01/2018 9:12 PM 07/02/19 19 Venous) CDT 10:10 PM CDT Douglas Pham LAB BLOOD ADD-ON Performing Organization Address City/[facility]/ZIP [facility] Phon e Number [facility] LABORATORIES - [address] [place], [place] [address] [facility] Glucose, POCT (07/01/2018 5:34 PM CDT) Analysis Performed At [facility] logist Time Signature Glucose, POCT, 112 70 [...] Provider LAB POCT ORDERABLES-MANUAL Performing Organization Address City/[facility]/ZIP Code Phon e Number [facility]OC [facility] [address] [place] [address] (ABNORMAL) Prothrombin Time (PT/INR) (07/01/2018 1:55 PM CDT) Patholo gist Method Time Signature Prothrombin 17.6 (H) 9.4 - 07/01/2018 [facility] Time, P 12.5 sec 2:21 PM CDT LABORATORIES - [facility] INR 1.6 0.9 - 1.1 07/01/2018 [facility] 2:21 PM CDT LABORATORIES - [facility] Comment: ----ADDITIONAL INFORMATION---- Standard intensity [...] Address City/State/ZIP Code Phon e Number [facility] LABORATORIES - [address] [place], [place] [address] [facility] Glucose, POCT (07/01/2018 1:11 PM [...] Provider LAB POCT ORDERABLES-MANUAL Performing Organization Address City/[facility] Code Phon e Number [facility]OC [facility] [address] [place] [address] (MICHAEL) 2D WITH COLOR, LIMITED DOPPLER AND [...] ic aorta. ??Normally connected pulmonary veins. ??No rwpl-rf-pgwxz shunt at atrial level. ??A gitated saline injection(s) performed during sedation. No eedfw-ur-ahbz shunt at atrial level. ??Pericardial effusion. ??PROCEDURE ??Transesophageal echocardiogram performed at the request of the primary passenger service manager. ??Adult probe inserted without difficulty. ??Procedure performed [...] Narrator or other pertinent rec ord in [facility] for additional procedure and sedation [...] ic aorta. Normally connected pulmonary veins. No orfb-vd-jhlxm shunt at atrial level. Michelle tated saline injection(s) performed during sedation. No bohvx-is-ugny shunt at atrial level. Pericardial effusion. PROCEDURE Transesophageal echocardiogram performed at the request of the primary passenger service manager. Adult probe inserted without difficulty. Procedure p [...] Narrator or other pertinent rec ord in [facility] for additional procedure and sedation information. Transesophageal echocardiog perry completed without complications. For the complete report, see the Order-L evel Documents below. See PDF For Result Douglas Pham CV ECHO PROCEDURES ECG 12 Lead STAT PRN (07/01/2018 9:44 AM CDT) [facility] Method Time Signature Ventricular 137 BPM MUSE Rate ECG/Min NC Interval 244 ms MUSE QRSD Interval 64 ms MUSE QT Interval 364 ms MUSE QTC Interval 549 ms MUSE P [place] 17 degrees MUSE R [place] 102 degrees MUSE T Wave [place] -143 degrees MUSE CODED DIAGNOSIS Atrial MUSE [...] CDT) P athologist Signature Microscopy Abnormal 07/01/2018 [facility] 1:34 PM CDT LABORATORIES - [facility] RBC <3 <3 /hpf 07/01/2018 [facility] 1:34 PM CDT LABORATORIES - [facility] WBC 1-3 /hpf 07/01/2018 [facility] 1:34 PM CDT LABORATORIES - [facility] Comment: ----REFERENCE VALUE---- 1-3 ??(Males) 1-10 (Females) Casts, Hyaline 4-10 /lpf 07/01/2018 1:34 PM [facility] LINIC CDT LABORATORIES - [facility] Casts, Granular Occas (A) /lpf 07/01/2018 1:34 PM [facility] CDT LABORATORIES [facility] S Fat, Free Occas (A) /hpf 07/01/2018 1:34 PM [facility] CDT LABORATORIES [facility] Squamous Epithelial 4-10 /hpf 07/01/2018 1:34 PM [facility] Cells, U CDT LABORATORIES [facility] Bacteria Present (A) 07/01/2018 1:34 PM [facility] IC CDT LABORATORIES - [facility] Specimen Anatomical Collection Method Collection Time Receive d Time (Source) Location / / Volume Laterality Urine 07/01/2018 9:28 AM 9 CDT 12:00 PM CDT Antelmo Richey P.A.-C. LAB URINE ORDERABLES Performing Organization Address City/[facility]/ZIP Code Phon e Number [facility] LABORATORIES - [address] [place], [place] [address] [facility] (ABNORMAL) Urinalysis with Microscopic (07/01/2018 9:28 AM CDT) Patholo gist Method Time Signature Source Midstream 07/01/2018 [facility] 12:00 PM CDT LABORATORIES [facility] Appearance Normal Normal 07/01/2018 [facility] 12:25 PM CDT LABORATORIES [facility] Osmolality, U 652 150 - 1150 07/01/2018 [facility] mOsm/kg 1:10 PM CDT LABORATORIES [facility] pH, U 5.7 4.5 - 8.0 07/01/2018 [facility] 1:10 PM CDT [facility] Comment: ----ADDITIONAL INFORMATION---- This test was developed and its performa nce characteristics determined by [facility] in a manner co nsistent with CLIA requirements. This test has not bee n cleared or approved by the U.S. Food and Drug Admin istration. Glucose 8 0 - 15 mg/dL 07/01/2018 12:25 PM CDT [facility] Protein, U 40 (H) <26 mg/dL 07/01/2018 12:25 PM CDT [facility] Comment: ----ADDITIONAL INFORMATION---- On 09/17/2016 the total protein assay me thod changed resulting in approximately a 15% increase in prote in values. Protein/Osmolality 0.61 (H) <0.42 Ratio 07/01/2018 1:10 PM [facility] CDT [facility] Comment: ----ADDITIONAL INFORMATION---- On 09/17/2016 the total protein assay me thod changed resulting in approximately a 15% increase in prote in values. Predicted 24 Hr 429 mg/24 h 07/01/2018 1:10 PM [facility] Protein T [facility] Predicted Range 106-1738 mg/24 h 07/01/2018 [facility] Hemoglobin, QL Negative Negative 07/01/2018 12:54 PM [facility] CDT [facility] Specimen Anatomical Collection Method Collection Time Receive d Time (Source) Location / / Volume Laterality Urine (Urine, 07/01/2018 9:28 AM 07/02/19 19 Clean Catch) CDT 12:00 PM CDT Antelmo Richey P.A.-C. LAB URINE ORDERABLES Performing Organization Address City/State/ZIP Code Phon e Number [facility] - [address] [place], [place] [address] [facility] Glucose, POCT (07/01/2018 5:51 AM CDT) Analysis Performed At Patho logist Time Signature Glucose, POCT, 115 70 - 140 07/01/2018 [facility] B mg/dL 5:52 AM CDT SERVICES Site Capillary 07/01/2018 [facility] 5:52 AM CDT SERVICES Last Intake 3-4 hours 07/01/2018 [facility] 5:52 AM CDT SERVICES Specimen Anatomical Collection Method Collection Time Receive d Time (Source) Location / / Volume Laterality Blood 07/01/2018 5:51 AM 9 5:53 CDT AM CDT Unknown Provider LAB POCT ORDERABLES-MANUAL Performing Organization Address City/State/ZIP Code Phon e Number [facility] [address] [place] [address] (ABNORMAL) Basic Metabolic Panel (07/01/2018 5:50 AM CDT) [facility] g[facility] Method Time Signature Potassium, S 5.1 3.6 - 5.2 07/01/2018 [facility] mmol/L 6:49 AM CDT LABORATORIES - [facility] Sodium, S 138 135 - 145 07/01/2018 [facility] mmol/L 6:49 AM CDT LABORATORIES - [facility] Chloride, S 99 98 - 107 07/01/2018 [facility] mmol/L 6:49 AM CDT LABORATORIES - [facility] Bicarbonate, S 26 22 - 29 07/01/2018 [facility] mmol/L 6:49 AM CDT LABORATORIES - [facility] Anion Gap 13 7 - 15 07/01/2018 [facility] 6:49 AM CDT LABORATORIES - [facility] BUN (Blood 21 6 - 21 07/01/2018 [facility] Urea mg/dL 6:49 AM CDT LABORATORIES - Nitrogen), S [facility] Creatinine 1.14 (H) 0.59 - 07/01/2018 [facility] 1.04 6:49 AM CDT LABORATORIES - mg/dL [facility] eGFR-Non 52 (L) >=60 07/01/2018 [facility] Black/ mL/min/BS 6:49 AM CDT LABORATORIES - [place] [facility] Comment: ----ADDITIONAL INFORMATION---- Estimated GFR calculated using the 2009 CKD_EPI creatinine equation. eGFR-Black/ 60 >=60 mL/min/BSA 07/01/2018 6:49 [facility] [place] AM CDT LABORATORIES - [facility] Comment: ----ADDITIONAL INFORMATION---- Estimated GFR calculated using the 2009 CKD_EPI creatinine equation. Calcium, Total, S 9.4 8.8 - 10.2 mg/dL 07/01/2018 6:49 AM [facility] CDT LABORATORIES - [facility] S Glucose, S 121 70 - 140 mg/dL 07/01/2018 6:49 AM [facility] CDT LABORATORIES - [facility] S Specimen Anatomical Collection Method Collection Time Receive d Time (Source) Location / / Volume Laterality Blood (Blood, 07/01/2018 5:50 AM 07/02/19 19 6:13 Venous) CDT AM CDT Antelmo Richey P.A.-C. LAB BLOOD ADD-ON Performing Organization Address City/State/ZIP Code Phon e Number [facility] LABORATORIES - [address] [place], [place] [address] [facility] Glucose, POCT (06/30/2018 9:38 PM [...] [facility] [address] [place] [address] ECG 12 Lead (06/30/2018 8:54 PM CDT) [facility] g[facility] Method Time Signature Ventricular 64 BPM MUSE Rate ECG/Min NC Interval 156 ms MUSE QRSD Interval 86 ms MUSE QT Interval 456 ms MUSE QTC Interval 470 ms MUSE P [place] 56 degrees MUSE R [place] 109 degrees MUSE T Wave [place] 68 degrees MUSE CODED DIAGNOSIS Atrial MUSE [...] Provider LAB POCT ORDERABLES-MANUAL Performing Organization Address [facility] Phon e Number [facility]OC [facility] SERVICES [address] [place] [address] Glucose, POCT (06/30/2018 11:18 AM CDT) Analysis [...] Provider LAB POCT ORDERABLES-MANUAL Performing Organization Address City/[facility]/ZIP Code Phon e Number [facility] [address] [place] [address] Basic Metabolic Panel (06/30/2018 6:01 AM CDT) Analysis Performed At Patho logist Time Signature Potassium, S 4.4 3.6 - 5.2 06/30/2018 [facility] mmol/L 6:50 AM CDT [facility] Sodium, S 138 135 - 145 06/30/2018 [facility] mmol/L 6:50 AM CDT LABORATORIES [facility] Chloride, S 100 98 - 107 06/30/2018 [facility] mmol/L 6:50 AM CDT LABORATORIES [facility] Bicarbonate, S 24 22 - 29 06/30/2018 [facility] mmol/L 6:50 AM CDT LABORATORIES [facility] Anion Gap 14 7 - 15 06/30/2018 [facility] 6:50 AM CDT LABORATORIES [facility] BUN (Blood Urea 12 6 - 21 06/30/2018 [facility] Nitrogen), S mg/dL 6:50 AM T [facility] Creatinine 0.82 0.59 - 06/30/2018 [facility] 1.04 mg/dL 6:50 AM T [facility] eGFR-Non 77 >=60 06/30/2018 [facility] Black/ mL/min/BSA 6:50 AM CDT LABORATORIES [facility] Comment: ----ADDITIONAL INFORMATION---- Estimated GFR calculated using the 2009 CKD_EPI creatinine equation. eGFR-Black/ 89 >=60 mL/min/BSA 06/30/2018 [facility] Comment: ----ADDITIONAL INFORMATION---- Estimated GFR calculated using the 2009 CKD_EPI creatinine equation. Calcium, Total, S 9.1 8.8 - 10.2 mg/dL 06/30/2018 6:50 AM [facility] CDT [facility] Glucose, S 126 70 - 140 mg/dL 06/30/2018 6:50 AM [facility] Specimen Anatomical Collection Method Collection Time Receive d Time (Source) Location / / Volume Laterality Blood (Blood, 06/30/2018 6:01 AM 07/01/19 19 6:18 Venous) CDT AM CDT Antelmo Richey P.A.-C. LAB BLOOD ADD-ON Performing Organization Address City/State/ZIP Code Phon e Number [facility] LABORATORIES - [address] [place], [place] [address] [facility] (ABNORMAL) CBC with Differential, Blood (06/30/2018 6:01 AM CDT) [facility] Method Time Signature Hemoglobin 13.0 11.6 - 06/30/2018 [facility] 15.0 g/dL 6:26 AM CDT LABORATORIES - [facility] Hematocrit 40.6 35.5 - 06/30/2018 [facility] 44.9 % 6:26 AM CDT LABORATORIES - [facility] Erythrocytes 4.60 3.92 - 06/30/2018 [facility] 5.13 6:26 AM CDT LABORATORIES - x10(12)/L [facility] MCV 88.3 78.2 - 06/30/2018 [facility] 97.9 fL 6:26 AM CDT LABORATORIES [facility] RBC Distrib 13.8 12.2 - 06/30/2018 [facility] Width 16.1 % 6:26 AM CDT LABORATORIES - [facility] Platelet Count 451 (H) 157 - 371 06/30/2018 [facility] x10(9)/L 6:26 AM CDT LABORATORIES - [facility] Leukocytes 9.8 (H) 3.4 - 9.6 06/30/2018 [facility] x10(9)/L 6:26 AM CDT LABORATORIES - [facility] Neutrophils 5.28 1.56 - 06/30/2018 [facility] 6.45 6:26 AM CDT LABORATORIES - x10(9)/L [facility] Lymphocytes 2.89 0.95 - 06/30/2018 [facility] 3.07 6:26 AM CDT LABORATORIES - x10(9)/L [facility] Monocytes 1.29 (H) 0.26 - 06/30/2018 [facility] 0.81 6:26 AM CDT LABORATORIES - x10(9)/L [facility] Eosinophils 0.19 0.03 - 06/30/2018 [facility] 0.48 6:26 AM CDT LABORATORIES - x10(9)/L [facility] Basophils 0.10 (H) 0.01 - 06/30/2018 [facility] 0.08 6:26 AM CDT LABORATORIES - x10(9)/L [facility] Specimen Anatomical Collection Method Collection Time Receive d Time (Source) Location / / Volume Laterality Blood (Blood, 06/30/2018 6:01 AM 07/01/19 19 6:18 Venous) CDT AM CDT Antelmo Richey P.A.-C. LAB BLOOD ADD-ON Performing Organization Address City/[facility]/ZIP Code Phon e Number [facility] LABORATORIES - [address] [place], [place] [address] [facility] Glucose, POCT (06/30/2018 6:00 AM [...] Provider LAB POCT ORDERABLES-MANUAL Performing Organization Address City/[facility]/ZIP Code Phon e Number [facility]OC [facility] [address] [place] [address] Magnesium (06/30/2018 5:57 AM CDT) P athologist Signature Magnesium, S 1.8 1.7 - 2.3 06/30/2018 [facility] mg/dL 10:59 AM CDT LABORATORIES - [facility] Specimen Anatomical Collection Method Collection Time Receive d Time (Source) Location / / Volume Laterality Blood (Blood, 06/30/2018 5:57 AM 07/01/19 19 Venous) CDT 10:36 AM CDT Antelmo Richey P.A.-C. LAB BLOOD ADD-ON Performing Organization Address City/[facility]/ZIP Code Phon e Number [facility] LABORATORIES - [address] [place], [place] [address] [facility] DX Chest AP or PA [...] Total Iron-Binding Capacity (06/29/2018 7:25 PM CDT) [facility] Method Time Signature Iron 89 35 - 145 06/29/2018 [facility] mcg/dL 8:45 PM CDT [facility] Total Iron 505 (H) 250 - 400 06/29/2018 [facility] Binding mcg/dL 8:46 PM CDT LABORATORIES [facility] Percent 18 14 - 50 % 06/29/2018 [facility] Saturation 8:46 PM CDT [facility] Specimen Anatomical Collection Method Collection Time Receive d Time (Source) Location / / Volume Laterality Blood (Blood, 06/29/2018 7:25 PM 06/30/19 19 7:49 Venous) CDT PM CDT Alysha Charles P.A.-C. LAB BLOOD ADD-ON Performing Organization Address City/State/ZIP Code Phon e Number [facility] LABORATORIES - [address] [place], [place] [address] [facility] Lipid Panel (06/29/2018 7:25 PM CDT) P athologist Signature Cholesterol, 156 mg/dL 06/29/2018 [facility] Total 8:45 PM CDT LABORATORIES [facility] Comment: ----REFERENCE VALUE---- Desirable: < 200 Borderline high: 200 - 239 High: > or = 240 Triglycerides 127 mg/dL 06/29/2018 8:45 PM CDT [facility] Comment: ----REFERENCE VALUE---- Normal: <150 Borderline high: 150-199 High: 200-499 Very high: > or =500 Cholesterol, HDL, S 56 >=50 mg/dL 06/29/2018 8:45 PM CDT [facility] Calculated LDL 75 mg/dL 06/29/2018 8:45 PM CDT [facility] Comment: ----REFERENCE VALUE---- Desirable: <100 Above Desirable: 100-129 Borderline high: 130-159 High: 160-189 Very high: > or =190 Cholesterol, Non-HDL, 100 mg/dL 06/29/2018 8:4 5 PM CDT [facility] Comment: ----REFERENCE VALUE---- Desirable: <130 Above Desirable: 130-159 Borderline high: 160-189 High: 190-219 Very high: > or =220 Specimen Anatomical Collection Method Collection Time Receive d Time (Source) Location / / Volume Laterality Blood (Blood, 06/29/2018 7:25 PM 06/30/19 19 7:49 Venous) CDT PM CDT Alysha Charles P.A.-C. LAB BLOOD ADD-ON Performing Organization Address City/State/ZIP Code Phon e Number [facility] LAB[facility]ATORIES - [address] [place], [place] [address] [facility] Prothrombin Time (PT/INR) (06/29/2018 7:25 PM CDT) [facility] Method Time Signature Prothrombin 12.2 9.4 - 12.5 06/29/2018 [facility] Time, P sec 8:08 PM CDT [facility] INR 1.1 0.9 - 1.1 06/29/2018 [facility] 8:08 PM CDT [facility] Comment: ----ADDITIONAL INFORMATION---- Standard intensity warfarin [...] Address City/State/ZIP Code Phon e Number [facility] LABORATORIES - [address] [place], [place] [address] [facility] (ABNORMAL) CBC with Differential, Blood (06/29/2018 7:25 PM CDT) [facility] Method Time Signature Hemoglobin 13.6 11.6 - 06/29/2018 [facility] 15.0 g/dL 7:55 PM CDT LABORATORIES - [facility] Hematocrit 43.1 35.5 - 06/29/2018 [facility] 44.9 % 7:55 PM CDT LABORATORIES - [facility] Erythrocytes 4.92 3.92 - 06/29/2018 [facility] 5.13 7:55 PM CDT LABORATORIES - x10(12)/L [facility] MCV 87.6 78.2 - 06/29/2018 [facility] 97.9 fL 7:55 PM CDT LABORATORIES - [facility] RBC Distrib 13.9 12.2 - 06/29/2018 [facility] Width 16.1 % 7:55 PM CDT LABORATORIES - [facility] Platelet Count 524 (H) 157 - 371 06/29/2018 [facility] x10(9)/L 7:55 PM CDT LABORATORIES - [facility] Leukocytes 10.8 (H) 3.4 - 9.6 06/29/2018 [facility] x10(9)/L 7:55 PM CDT LABORATORIES - [facility] Neutrophils 7.29 (H) 1.56 - 06/29/2018 [facility] 6.45 7:55 PM CDT LABORATORIES - x10(9)/L [facility] Lymphocytes 2.21 0.95 - 06/29/2018 [facility] 3.07 7:55 PM CDT LABORATORIES - x10(9)/L [facility] Monocytes 1.12 (H) 0.26 - 06/29/2018 [facility] 0.81 7:55 PM CDT LABORATORIES - x10(9)/L [facility] Eosinophils 0.10 0.03 - 06/29/2018 [facility] 0.48 7:55 PM CDT LABORATORIES - x10(9)/L [facility] Basophils 0.10 (H) 0.01 - 06/29/2018 [facility] 0.08 7:55 PM CDT LABORATORIES - x10(9)/L [facility] Specimen Anatomical Collection Method Collection Time Receive d Time (Source) Location / / Volume Laterality Blood (Blood, 06/29/2018 7:25 PM 06/30/19 19 7:49 Venous) CDT PM CDT Alysha Charles P.A.-C. LAB BLOOD ADD-ON Performing Organization Address City/[facility]/ZIP Code Phon e Number [facility] LABORATORIES - [address] [place] [phone] [facility] (ABNORMAL) S-TSH (Thyroid-Stimulating Hormone - Sensitive) (06/29/2018 7:25 PM CDT) Patholo gist Method Time Signature TSH, Sensitive 4.8 (H) 0.3 - 4.2 06/29/2018 [facility] mIU/L 8:45 PM CDT LABORATORIES [facility] Specimen Anatomical Collection Method Collection Time Receive d Time (Source) Location / / Volume Laterality Blood (Blood, 06/29/2018 7:25 PM 06/30/19 19 7:49 Venous) CDT PM CDT Alysha Charles P.A.-C. LAB BLOOD ADD-ON Performing Organization Address City/[facility] Code Phon e Number [facility] LABORATORIES - [address] [place] [phone] [facility] (ABNORMAL) NT-Pro B-Type Natriuretic Peptide (BNP) (06/29/2018 7:25 PM CDT) P athologist Signature NT-Pro BNP 5956 (H) <=177 06/29/2018 [facility] pg/mL 8:45 PM CDT LABORATORIES [facility] Comment: NT-proBNP values less than [...] Address City/State/ZIP Code Phon e Number [facility] LABORATORIES - [address] [place], [place] [address] [facility] Magnesium (06/29/2018 7:25 PM CDT) P athologist Signature Magnesium, S 1.8 1.7 - 2.3 06/29/2018 [facility] mg/dL 8:45 PM CDT LABORATORIES - [facility] Specimen Anatomical Collection Method Collection Time Receive d Time (Source) Location / / Volume Laterality Blood (Blood, 06/29/2018 7:25 PM 06/30/19 19 7:49 Venous) CDT PM CDT Alysha Charles P.A.-C. LAB BLOOD ADD-ON Performing Organization Address City/[facility] Code Phon e Number [facility] LABORATORIES - [address] [place] [phone] [facility] (ABNORMAL) Comprehensive Metabolic Panel (06/29/2018 7:25 PM CDT) Patholo gist Method Time Signature Potassium, S 4.7 3.6 - 5.2 06/29/2018 [facility] mmol/L 8:45 PM CDT LABORATORIES - [facility] Sodium, S 136 135 - 145 06/29/2018 [facility] mmol/L 8:45 PM CDT LABORATORIES - [facility] Chloride, S 100 98 - 107 06/29/2018 [facility] mmol/L 8:45 PM CDT LABORATORIES - [facility] Bicarbonate, S 18 (L) 22 - 29 06/29/2018 [facility] mmol/L 8:45 PM CDT LABORATORIES - [facility] Anion Gap 18 (H) 7 - 15 06/29/2018 [facility] 8:45 PM CDT LABORATORIES [facility] BUN (Blood Urea 15 6 - 21 06/29/2018 [facility] Nitrogen), S mg/dL 8:45 PM CDT LABORATORIES [facility] Creatinine 0.81 0.59 - 06/29/2018 [facility] 1.04 mg/dL 8:45 PM CDT LABORATORIES [facility] eGFR-Non 79 >=60 06/29/2018 [facility] Black/ mL/min/BSA 8:45 PM T LABORATORIES [facility] Comment: ----ADDITIONAL INFORMATION---- Estimated GFR calculated using the 2009 CKD_EPI creatinine equation. eGFR-Black/ >90 >=60 mL/min/BSA 06/29/2018 8:45 [facility] Comment: ----ADDITIONAL INFORMATION---- Estimated GFR calculated using the 2009 CKD_EPI creatinine equation. Calcium, Total, S 9.7 8.8 - 10.2 06/29/2018 8:45 PM [facility] mg/dL T [facility] Glucose, S 123 70 - 140 mg/dL 06/29/2018 8:45 PM [facility] Protein, Total, S 7.2 6.3 - 7.9 g/dL 06/29/2018 8:45 P M [facility] Albumin, S 4.0 3.5 - 5.0 g/dL 06/29/2018 8:46 PM [facility] Aspartate 20 8 - 43 U/L 06/29/2018 9:24 PM [facility] Aminotransferase (AST), S T [facility] RATORIES [facility] Alkaline Phosphatase, S 83 35 - 104 U/L 06/29/2018 8: 45 PM [facility] [place] Alanine Aminotransferase 25 7 - 45 U/L 06/29/2018 10: 54 [facility] (ALT), S PM [facility] Bilirubin, Total, S 0.7 <=1.2 mg/dL 06/29/2018 8:45 PM [facility] Specimen Anatomical Collection Method Collection Time Receive d Time (Source) Location / / Volume Laterality Blood (Blood, 06/29/2018 7:25 PM 06/30/19 19 7:49 Venous) CDT PM CDT Alysha Charles P.A.-C. LAB BLOOD ADD-ON Performing Organization Address City/State/ZIP Code Phon e Number [facility] - [address] [place], [place] [address] [facility] ECG 12 Lead (06/29/2018 6:26 PM CDT) [facility] Method Time Signature Ventricular 148 BPM MUSE Rate ECG/Min QRSD Interval 88 ms MUSE QT Interval 350 ms MUSE QTC Interval 549 ms MUSE P [place] -118 degrees MUSE R [place] 96 degrees MUSE T Wave [place] 4 degrees MUSE CODED DIAGNOSIS Atrial MUSE [...] mg of calcium, oral, Every 2 hour NC N, indigestion, Not to exceed 12 tablets [...] REdilmaNEdilma) 1 application, topical, 3 times daily NC N, muscle/joint pain, Starting on Fri06/30/18 at [...] documented as of this encounter Care Teams Weatherization Director Relationship Specialty Start Date End Date Vianney Barrera APRN, C.N.P., PCP - General Internal Medicine 07/06/18 07/26/18 M.S.N. [address] [place] [address] documented as of this encounter
--- OUTSIDE RECORDS SUMMARY | 2022-02-06 06:54 | XMS_ITS | Encounter Summary ---
:1955 Author Organization [facility] Address [address] [place] [address] Care Team Providers Name Role Phone Unavailable Primary Care Provider Unavailable Encounter Details Date Type Department Care Team Description 05/04/2013 Hospital Encounter HX RST FIBRO AHP OP [facility], Marlene bangura A, R.N. [address] [place] [phone] Social History Tobacco Use Types Packs/Day Years [...] do you attend mu-ism or Never 2018 caodaism services? Do you [...]
--- OUTSIDE RECORDS SUMMARY | 2022-02-06 06:54 | XMS_ITS | Encounter Summary ---
:1955 Author Organization [facility] Address [address] [place] [address] Care Team Providers Name Role Phone Unavailable [...] do you attend rastafari or Never 2018 sabianist services? Do you [...]
--- OUTSIDE RECORDS SUMMARY | 2022-02-06 06:54 | XMS_ITS | Encounter Summary ---
:1955 Author Organization [facility] Address [address] [place] [address] Care Team Providers Name Role Phone Vianney Barrera APRN, C.N.P., M.S.N. Primary Care Provider [phone] Reason for Referral Outpatient (Routine) - Closed Specialty Diagnoses / Referred By Contact Referred To Contact Procedures Cardiovascular Diseases / Diagnoses Flutter Atrial (HCC) Orlaia Ricks, [facility] Cardiovascular Disease NO, C.N.P. [address] [place] [phone] Referral ID Status Reason Start Date Expiration Date Visits Requ ested Visits Authorized [id number] Closed 07/03/2018 07/03/2019 1 1 Reason for Visit Reason Onset Date Comments Pre-visit Testing Orders 07/03/2018 Encounter Details Date Type Department Care Team Description 07/03/2018 Clinical Department of [facility] Pre-visit Test ing Communication Cardiovascular Oraila Hernandez, Orders Medicine in [place], C.N.P. [place], [place] [address] [place] [address] [place] [phone] Social History Tobacco Use Types Packs/Day Years [...] do you attend moravian or Never 2018 christian services? Do you [...] documented as of this encounter Care Teams Finishing Trimmer Relationship Specialty Start Date End Date Vianney Barrera APRN, C.N.P., PCP - General Internal Medicine 07/06/18 07/26/18 M.S.N. [address] [place] [address] documented as of this encounter
--- OUTSIDE RECORDS SUMMARY | 2022-02-06 06:54 | XMS_ITS | Encounter Summary ---
:1955 Author Organization [facility] Address [address] [place] [address] Care Team Providers Name Role Phone Unavailable [...] do you attend cheondoism or Never 2018 holiness services? Do you [...]
--- OUTSIDE RECORDS SUMMARY | 2022-02-06 06:54 | XMS_ITS | Encounter Summary ---
:1955 Author Organization [facility] Address [address] [place] [address] Care Team Providers Name Role Phone Unavailable Primary Care Provider Unavailable Encounter Details Date Type Department Care Team Description 05/04/2013 Hospital Encounter HX RST FIBROMYALGIA Verito Collins, NO, C.N.P., D.N.P., M.S. [address] [place] [phone] (Wo rk) Social History Tobacco Use Types [...] do you attend spiritism or Never 2018 hindu services? Do you [...]
--- OUTSIDE RECORDS SUMMARY | 2022-02-06 06:54 | XMS_ITS | Encounter Summary ---
:1955 Author Organization [facility] Address [address] [place] [address] Care Team Providers Name Role Phone Unavailable [...] do you attend cheondoism or Never 2018 confucianist services? Do you [...]
[2022-02-06 07:07] LABS: Slide Review Reflex No
[2022-02-06 07:20] LABS: Albumin* 4.4 g/dL (3.3-5.0); Chloride* 104 mmol/L (96-114); Sodium* 139 mmol/L (135-149)
[2022-02-06 07:21] LABS: Potassium* 4.1 mmol/L (3.6-5.1)
[2022-02-06 07:23] LABS: Alkaline Phosphatase* 86 U/L (40-150); Aspartate Amino Transferase* 25 U/L (12-35); Bilirubin Total* 0.3 mg/dL (0.1-1.5); Carbon Dioxide* 27 mmol/L (20-32); Creatinine* 0.7 mg/dL (0.5-1.5); Estimated Glomerular Filt Rate 97 ml/min; Total Protein* 7.5 g/dL (6.0-8.3)
[2022-02-06 07:24] LABS: Alanine Aminotransferase* 29 U/L (4-35); Blood Urea Nitrogen* 11 mg/dL (7-30); Calcium* 8.8 mg/dL (8.4-10.6); Glucose* 129 mg/dL (60-115); Prothrombin Time 21.9 Seconds
[2022-02-06 07:26] LABS: C Reactive Protein* 0.8 mg/dL (0.5-1.0)
[2022-02-06 07:32] LABS: NT Pro B Type NatriureticPept* 153 PG/mL (0-125)
[2022-02-06 07:36] LABS: Troponin I* < 0.01 ng/mL (0.01-0.04)
== END 2022-02-06 08:28 ==
PROVIDERS: Emergency Provider Family Medicine; PCP Family Medicine
DX: R07.9 Chest pain, unspecified (principal)
CPT/HCPCS: 36415; 80053; 83880; 84484; 85025; 85610; 86140; 93005; 99283; 99285; A9270

== ENCOUNTER 2022-03-12 09:51 | Outpatient (RCR) | payer MEDICARE, MEDICAID, SELFPAY | END 2022-05-27 12:07 | disposition home or self-care (01) | PROVIDERS: PCP Family Medicine; Visit Provider Family Medicine | DX: M54.50 Low back pain, unspecified (principal); Z51.89 Encounter for other specified aftercare | CPT/HCPCS: 97110; 97140 ==

== ENCOUNTER 2022-04-29 03:58 | Outpatient (CLI) | payer MEDICARE, MEDICAID, SELFPAY | END 2022-04-29 03:59 | disposition home or self-care (01) | LOC: AMB 04-30 09:41 | PROVIDERS: PCP Family Medicine; Visit Provider Family Medicine | DX: R03.0 Elevated blood-pressure reading, without diagnosis of hypertension (principal); F41.9 Anxiety disorder, unspecified | CPT/HCPCS: A0425; A0427 ==

== ENCOUNTER 2022-04-29 04:33 | Emergency (ER) | payer MEDICARE, MEDICAID, SELFPAY ==
--- NOTE | 2022-04-29 04:35 | ED.GENADULT ---
HPI - General Adult General Time Seen by Provider: 04:35 Date Seen: 04/29/22 Chief complaint: High Blood Pressure Stated complaint: High Blood Pressure Time Seen by Provider: 04/29/22 04:34 Source: patient, EMS and RN notes reviewed Mode of arrival: ambulatory Limitations: no limitations History of Present Illness HPI narrative: 67-year-old female who presents today with elevated blood pressure. Patient checked her blood pressure earlier and found to be 175/95, so she called EMS. She reports she has a little bit of pain in the low chest has been going on for last 3 hours, constant, not associated with any nausea, vomiting, or shortness of breath. Review of records shows multiple prior emergency department evaluations for chest pain in the past with no definite diagnosis found. Related Data Home Medications Medication Instructions Recorded Confirmed acetaminophen 325 mg tablet 650 mg PO Q6H PRN pain 12/27/21 04/29/22 albuterol sulfate 90 mcg/actuation 2 puff inhalation Q4H PRN 12/27/21 04/29/22 aerosol inhaler (Ventolin HFA) amitriptyline 50 mg tablet 50 mg PO HS 12/27/21 04/29/22 amlodipine 10 mg tablet 10 mg PO HS 12/27/21 04/29/22 antacid See Rx Instructions PO DAILY PRN 12/27/21 01/08/22 budesonide 0.5 mg/2 mL suspension 0.5 mg inhalation BID 12/27/21 01/08/22 for nebulization diphenhydramine HCl 25 mg capsule 25 mg PO Q8H PRN allergic symptoms 12/27/21 12/27/21 (Banophen) glipizide 5 mg tablet 5 mg PO DAILY 12/27/21 04/29/22 hydroxyzine HCl 25 mg tablet 25 mg PO HS PRN anxiety 12/27/21 04/29/22 levothyroxine 25 mcg tablet 25 mcg PO DAILY 12/27/21 04/29/22 metoprolol succinate 50 mg 50 mg PO DAILY 12/27/21 04/29/22 tablet,extended release 24 hr nitroglycerin 0.4 mg sublingual 0.4 mg sublingual Q5M PRN 12/27/21 04/29/22 tablet polyethylene glycol 3350 17 17 g PO DAILY PRN 12/27/21 04/29/22 gram/dose oral powder rizatriptan 5 mg tablet 5 mg PO DAILY PRN 12/27/21 04/29/22 sennosides 8.6 mg tablet (senna) 8.6 mg PO BID PRN 12/27/21 04/29/22 simvastatin 20 mg tablet 20 mg PO HS 12/27/21 04/29/22 warfarin 2 mg tablet mg 12/27/21 warfarin 4 mg tablet 2 mg PO .COMPLEX 12/27/21 04/29/22 naproxen sodium 220 mg tablet (All 220 mg PO .once weekly PRN 01/08/22 01/08/22 Day Pain Relief) calcium carbonate 200 mg calcium 200 mg PO PRN 04/29/22 (500 mg) chewable tablet Previous Rx's Medication Instructions Recorded omeprazole 40 mg capsule,delayed 40 mg PO DAILY #14 caps 01/08/22 release sucralfate 1 gram tablet (Carafate) 1 g PO BID 5 days #10 tabs 04/29/22 Allergies Allergy/AdvReac Type Severity Reaction Status Date / Time duloxetine AdvReac Mild sleep Verified 04/29/22 04:39 disturbance and fatigue Review of Systems Status of ROS: Reports: 10 or more systems reviewed and unremarkable except as noted in History and below [facility] Medical History (Updated 04/29/22 @ 04:45 by Hussain Adair MD) Atrial fibrillation Chronic constipation Chronic fatigue syndrome 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 Depression Diabetes mellitus with hyperglycemia, without long-term current use of insulin Fibromyalgia GERD (gastroesophageal reflux disease) Hiatal hernia Hypertension Hypertensive heart disease with heart failure Migraine Mild persistent asthma CHAPITO (obstructive sleep apnea) PTSD (post-traumatic stress disorder) Surgical History (Updated 04/29/22 @ 04:43 by Pat Nolen RN) H/O section H/O: hysterectomy History of cholecystectomy S/P appendectomy Social History Smoking Status: Never smoker Do you use any of these nicotine containing products: None Second hand tobacco smoke exposure: No How often do you have a drink containing alcohol: never How often do you have six or more drinks on one occasion: Never AUDIT-C Alcohol total score: 0 Non-prescribed substance use: denies use service: No Exam Narrative: Exam Narrative: General: Well-developed and well-nourished, no acute distress Head: Atraumatic and normocephalic Eyes: Pupils are equal reactive, extraocular motions intact, conjunctiva clear ENT: External nose and ears are normal, posterior pharynx without erythema or exudate Neck: No midline cervical tenderness, full spontaneous range of motion the neck, trachea midline, no adenopathy Heart: Regular rate and rhythm no murmurs or thrills Lungs: Clear to auscultation bilaterally without wheezes or crackles Abdomen: Soft, epigastric tenderness, nondistended with active bowel sounds Musculoskeletal: No tenderness, deformity, or edema Neurologic: Awake, alert, and oriented x3, no gross focal neurologic deficits, cranial nerves intact as tested Psych: Mood and affect are appropriate Skin: No rashes Const: Vital Signs, click to edit/add: Vital Signs - 24 hr 04/29/22 04:37 04/29/22 04:43 04/29/22 04:45 Temperature 97.6 F Pulse Rate 82 79 Pulse Rate [Pulse Oximeter] 79 Respiratory Rate 16 Blood Pressure Blood Pressure [Le ft Upper Arm] 156/99 H Pulse Oximetry 98 96 93 Oxygen Delivery Az thod Room Air 04/29/22 04:57 Temperature Pulse Rate 76 Pulse Rate [Pulse Oximeter] Respiratory Rate Blood Pressure 148/80 H Blood Pressure [Le ft Upper Arm] Pulse Oximetry 95 Oxygen Delivery Az thod Course Course Hospital Course: Patient seen and examined, prior records are reviewed. Patient presents today with elevated blood pressure reading home. She says she checked her blood pressure this morning because she took her daytime pills instead of her nighttime pills. On further questioning here, she says she has some a low chest pain and she does have some epigastric tenderness. EKG and labs ordered. If these are reassuring patient can be discharged. Blood pressure in the emergency department is 155/99, no indication for emergent treatment. Reevaluation(s) Reevaluation #1: Labs independently interpreted by me are reassuring with normal troponin, normal lipase, normal hepatic function panel. Patient is stable for discharge. Time: 05:35 Vital Signs Vital signs: Initial Vital Signs Temperature 97.6 F 04/29/22 04:37 Temperature Source Temporal Artery Scan 04/29/22 04:37 Pulse Rate 79 04/29/22 04:37 Pulse Rhythm 04/29/22 04:37 Respiratory Rate 16 04/29/22 04:37 Blood Pressure 156/99 H 04/29/22 04:37 Blood Pressure Mean 118 04/29/22 04:37 Pulse Oximetry 98 04/29/22 04:37 Oxygen Delivery Method 04/29/22 04:37 Vital Signs Temperature 97.6 F 04/29/22 04:37 Pulse Rate 79 04/29/22 04:37 Respiratory Rate 16 04/29/22 04:37 Blood Pressure 156/99 H 04/29/22 04:37 Pulse Oximetry 98 04/29/22 04:37 Oxygen Delivery Method 04/29/22 04:37 Temperature 97.6 F 04/29/22 04:37 Pulse Rate 76 04/29/22 04:57 Respiratory Rate 16 04/29/22 04:37 Blood Pressure 148/80 H 04/29/22 04:57 Pulse Oximetry 95 04/29/22 04:57 Oxygen Delivery Method 04/29/22 04:37 Medical Decision Making Medical Records Medical records reviewed: Yes I reviewed the patient's medical records Lab Data Lab results reviewed: Yes I reviewed the patient's lab results Labs: Lab Results 04/29/22 04/29/22 Range/Units 04:55 04:55 Sodium 139 (135-149) mmol/L Potassium 3.7 (3.6-5.1) mmol/L Chloride 104 (96-114) mmol/L Carbon Dioxide 29 (20-32) mmol/L BUN 12 (7-30) mg/dL Creatinine 0.8 (0.5-1.5) mg/dL Estimated Creat Clear 50.47 Estimated GFR 82 ml/min Glucose 120 H (60-115) mg/dL Calcium 8.9 (8.4-10.6) mg/dL Total Bilirubin 0.3 (0.1-1.5) mg/dL Direct Bilirubin 0.2 (0.0-0.5) mg/dL AST 30 (12-35) U/L ALT 42 H (4-35) U/L Alkaline Phosphatase 98 (40-150) U/L Total Protein 8.1 (6.0-8.3) g/dL Albumin 4.5 (3.3-5.0) g/dL Lipase 55 (23-300) U/L POC Troponin I 0.00 L (0.01-0.04) ng/ml ECG Data Attestation: I personally reviewed and interpreted this ECG as follows: Prior ECG tracings: available for review Interpretation: Performed at 4:41 a.m. demonstrates sinus rhythm rate 78, no acute ST elevations or depressions, normal intervals, normal axis, NM 174, QTC 456. Compared to prior of January 2022, no acute changes Discharge Plan Discharge Clinical Impression: Hypertension, Acute epigastric pain Patient Disposition: Home, Self-Care Condition: Stable Instructions: Chronic Hypertension (DC), Epigastric Pain (ED) Activity Level: No Restrictions Discharge Diet: Regular Prescriptions: New sucralfate [Carafate] 1 gram tablet 1 g PO BID 5 Days Qty: 10 0RF No Action acetaminophen 325 mg tablet 650 mg PO Q6H PRN (Reason: pain) amitriptyline 50 mg tablet 50 mg PO HS amlodipine 10 mg tablet 10 mg PO HS budesonide 0.5 mg/2 mL suspension for nebulization 0.5 mg inhalation BID glipizide 5 mg tablet 5 mg PO DAILY levothyroxine 25 mcg tablet 25 mcg PO DAILY metoprolol succinate 50 mg tablet extended release 24 hr 50 mg PO DAILY simvastatin 20 mg tablet 20 mg PO HS antacid suspension See Rx Instructions PO DAILY PRN Rx Instructions: 15-30ml orally daily PRN; sennosides [senna] 8.6 mg tablet 8.6 mg PO BID PRN rizatriptan 5 mg tablet 5 mg PO DAILY PRN Rx Instructions: may repeat once after 2 hours polyethylene glycol 3350 17 gram/dose powder 17 g PO DAILY PRN albuterol sulfate [Ventolin HFA] 90 mcg/actuation HFA aerosol inhaler 2 puff INHALATION Q4H PRN diphenhydramine HCl [Banophen] 25 mg capsule 25 mg PO Q8H PRN (Reason: allergic symptoms) Rx Instructions: 1-2 caps prn hydroxyzine HCl 25 mg tablet 25 mg PO HS PRN (Reason: anxiety) nitroglycerin 0.4 mg tablet, sublingual 0.4 mg sublingual Q5M PRN Rx Instructions: max 3 tabs within 15 minutes warfarin 2 mg tablet Rx Instructions: DIRECTED warfarin 4 mg tablet 2 mg PO .COMPLEX Rx Instructions: 2 mg orally 6mg (2mg x 3) every sun, wed, fri; 4mg (2mg x 2) all other days; DIRECTED naproxen sodium [All Day Pain Relief] 220 mg tablet 220 mg PO .once weekly PRN omeprazole 40 mg capsule,delayed release(DR/EC) 40 mg PO DAILY Qty: 14 0RF calcium carbonate 200 mg calcium (500 mg) tablet,chewable 200 mg PO PRN Rx Instructions: Chew 215 mg of calcium daily as needed for indigestion or heartburn. Follow Up/Referrals: Kandace Mckeon DO [Primary Care Provider] - Stand Alone Forms: [facility] Info Instructions
[2022-04-29 04:37] VITALS: BP 156/99; PULSE 79; RESP 16; TEMP 36.4; O2SAT 98; BMI 33.1
[2022-04-29 04:43] VITALS: PULSE 82; O2SAT 96
[2022-04-29 04:45] VITALS: PULSE 79; O2SAT 93
[2022-04-29 04:57] VITALS: BP 148/80; PULSE 76; O2SAT 95
[2022-04-29] MEDS: GI COCKTAIL (VISC LIDO/ANTACID) 30 ML PO (04:59)
--- NOTE | 2022-04-29 05:14 | ED.NURSE ---
Patient reports pain went from a 7/10 to 5/10 following GI cocktail.
[2022-04-29 05:21] LABS: Albumin* 4.5 g/dL (3.3-5.0); Chloride* 104 mmol/L (96-114); Potassium* 3.7 mmol/L (3.6-5.1); Sodium* 139 mmol/L (135-149)
[2022-04-29 05:23] LABS: Bilirubin Direct* 0.2 mg/dL (0.0-0.5); Bilirubin Total* 0.3 mg/dL (0.1-1.5); Carbon Dioxide* 29 mmol/L (20-32); Creatinine* 0.8 mg/dL (0.5-1.5); Est. Creatinine Clearance* 50.47; Estimated Glomerular Filt Rate 82 ml/min; Total Protein* 8.1 g/dL (6.0-8.3)
[2022-04-29 05:24] LABS: Alanine Aminotransferase* 42 U/L (4-35); Alkaline Phosphatase* 98 U/L (40-150); Aspartate Amino Transferase* 30 U/L (12-35); Blood Urea Nitrogen* 12 mg/dL (7-30); Calcium* 8.9 mg/dL (8.4-10.6); Glucose* 120 mg/dL (60-115); Lipase* 55 U/L (23-300)
[2022-04-29 05:34] LABS: INR 3.21 (0.91-1.10); Prothrombin Time 34.3 Seconds
[2022-04-29 05:49] VITALS: BP 148/86; PULSE 73; RESP 16; O2SAT 97
== END 2022-04-29 06:37 | disposition home or self-care (01) ==
LOC: ED 04:53
PROVIDERS: Emergency Provider Family Medicine; PCP Family Medicine
DX: R10.13 Epigastric pain (principal)
CPT/HCPCS: 36415; 80048; 80076; 83690; 84484; 85610; 93005; 99284; A9270

== ENCOUNTER 2023-01-15 13:12 | Emergency (ER) | payer MEDICAID, SELFPAY ==
[2023-01-15] VITALS (15 sets, daily range): BP systolic 116–145; BP diastolic 72–93; PULSE 62–73; RESP 16; TEMP 36.1; O2SAT 90–96; BMI 33.8
--- NOTE | 2023-01-15 13:29 | ED.GENADULT ---
HPI - General Adult General Time Seen by Provider: 13:29 Date Seen: 01/15/23 Chief complaint: Chest Pain Stated complaint: chest pain Time Seen by Provider: 01/15/23 13:21 History of Present Illness HPI narrative: This is a 67-year-old female with a complex past medical history. She has a history of atrial fibrillation and had ablation done approximately 4 years ago. It sounds like she has not had any episodes of AFib since that and so she took herself off warfarin perhaps a year ago. She says she does not have any history of coronary artery disease or other heart problems. She is on aspirin. She has dyslipidemia and takes statin for that. She has a history of asthma and uses inhalers for that as needed, budesonide for maintenance. She has hypertension, on metoprolol and amlodipine. No history of CHF. No known history of coronary artery disease. No history of heart valve disease. She is diabetic, on oral meds. She has hypothyroidism, on Synthroid. She presents to the ER today from her residential living facility at [facility]. She has been healthy and well there lately. She says she does not like living there. If possible she would move. She sounds like she did go visit with 1 of her sons and stayed with him for a couple of days recently. She says she really enjoys staying with him, enjoy the food, and slept better. She does not like living at [facility] and can not tolerate eating the food there. She says she does not sleep very well. She does not like having a bathroom down the hallway. She is not sure if stress about her living situation is causing her chest pain or not. She has not had any recent chest pains, but does recall that she had been a frequent visitor to the ER in the past for chest pains. As far as I can tell in her record last visit was in April. Workup was negative at that time. Around 10 or 11:00 a.m. this morning she was doing her normal morning routine. She was watching TV. She began having some substernal chest pain that felt like ?my heart was breaking?. She can not describe it any further than that. It did not radiate. No pain up to the jaw, down the arm, through to the back, or involving her abdomen. No other symptoms. No nausea. No sweatiness. No palpitations. No fainting. She has not had any other recent chest pains. No recent cough or fever. No swelling in her legs. She took her morning dose of aspirin-325 mg, at around 11 this morning. She used her inhaler at home that helped her feel a little bit better. Now that she is here in the ER she says she is mostly feeling better. Related Data Home Medications Medication Instructions Recorded Confirmed acetaminophen 325 mg tablet 650 mg PO Q6H PRN pain 12/27/21 01/15/23 albuterol sulfate 90 mcg/actuation 2 puff inhalation Q4H PRN 12/27/21 01/15/23 aerosol inhaler (Ventolin HFA) amitriptyline 50 mg tablet 50 mg PO HS 12/27/21 01/15/23 amlodipine 10 mg tablet 10 mg PO HS 12/27/21 01/15/23 antacid See Rx Instructions PO DAILY PRN 12/27/21 01/15/23 budesonide 0.5 mg/2 mL suspension 0.5 mg inhalation BID 12/27/21 01/15/23 for nebulization diphenhydramine HCl 25 mg capsule 25 mg PO Q8H PRN allergic symptoms 12/27/21 06/17/22 (Banophen) glipizide 5 mg tablet 5 mg PO DAILY 12/27/21 01/15/23 hydroxyzine HCl 25 mg tablet 25 mg PO HS PRN anxiety 12/27/21 01/15/23 levothyroxine 25 mcg tablet 25 mcg PO DAILY 12/27/21 01/15/23 metoprolol succinate 50 mg 50 mg PO DAILY 12/27/21 01/15/23 tablet,extended release 24 hr nitroglycerin 0.4 mg sublingual 0.4 mg sublingual Q5M PRN 12/27/21 01/15/23 tablet polyethylene glycol 3350 17 17 g PO DAILY PRN 12/27/21 01/15/23 gram/dose oral powder rizatriptan 5 mg tablet 5 mg PO DAILY PRN 12/27/21 01/15/23 sennosides 8.6 mg tablet (senna) 8.6 mg PO BID PRN 12/27/21 06/17/22 simvastatin 20 mg tablet 20 mg PO HS 12/27/21 01/15/23 naproxen sodium 220 mg tablet (All 220 mg PO .once weekly PRN 01/08/22 06/17/22 Day Pain Relief) calcium carbonate 200 mg calcium 200 mg PO PRN 04/29/22 06/17/22 (500 mg) chewable tablet aspirin 325 mg tablet,delayed 325 mg PO DAILY 01/15/23 01/15/23 release escitalopram oxalate 5 mg tablet 5 mg PO DAILY 01/15/23 01/15/23 Previous Rx's Medication Instructions Recorded omeprazole 40 mg capsule,delayed 40 mg PO DAILY #14 caps 01/08/22 release Allergies Allergy/AdvReac Type Severity Reaction Status Date / Time duloxetine AdvReac Mild sleep Verified 06/17/22 13:38 disturbance and fatigue [facility] Medical History (Updated 01/15/23 @ 18:06 by Jair Crouch MD) PTSD (post-traumatic stress disorder) ?F43.10 - Post-traumatic stress disorder, unspecified (ICD-10) Atrial fibrillation ?I48.91 - Unspecified atrial fibrillation (ICD-10) 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 - Dependent personality disorder (ICD-10) Hypertensive heart disease with heart failure ?I11.0 - Hypertensive heart disease with heart failure (ICD-10) Clear cell carcinoma of left kidney ?C64.2 - Malignant neoplasm of left kidney, except renal pelvis (ICD-10) Diabetes mellitus with hyperglycemia, without long-term current use of insulin ?E11.65 - Type 2 diabetes mellitus with hyperglycemia (ICD-10) Chronic constipation ?K59.09 - Other constipation (ICD-10) CHAPITO (obstructive sleep apnea) ?G47.33 - Obstructive sleep apnea (adult) (pediatric) (ICD-10) Mild persistent asthma ?J45.30 - Mild persistent asthma, uncomplicated (ICD-10) Migraine ?G43.909 - Migraine, unspecified, not intractable, without status migrainosus (ICD-10) Hypertension ?I10 - Essential (primary) hypertension (ICD-10) Hiatal hernia ?K44.9 - Diaphragmatic hernia without obstruction or gangrene (ICD-10) GERD (gastroesophageal reflux disease) ?K21.9 - Gastro-esophageal reflux disease without esophagitis (ICD-10) Fibromyalgia ?M79.7 - Fibromyalgia (ICD-10) Depression ?F32.A - Depression, unspecified (ICD-10) Chronic fatigue syndrome ?G93.32 - Myalgic encephalomyelitis/chronic fatigue syndrome (ICD-10) Surgical History (Updated 04/29/22 @ 04:43 by Pat Nolen RN) H/O: hysterectomy ?Z90.710 - Acquired absence of both cervix and uterus (ICD-10) History of cholecystectomy ?Z90.49 - Acquired absence of other specified parts of digestive tract (ICD-10) H/O section ?Z98.891 - History of uterine scar from previous surgery (ICD-10) S/P appendectomy ?Z90.49 - Acquired absence of other specified parts of digestive tract (ICD-10) Social History Smoking Status: Never smoker Do you use any of these nicotine containing products: None Second hand tobacco smoke exposure: No How often do you have a drink containing alcohol: never How often do you have six or more drinks on one occasion: Never AUDIT-C Alcohol total score: 0 Non-prescribed substance use: denies use service: No Exam Narrative: Exam Narrative: Constitutional: Appears well-developed and well-nourished. Alert. Conversant, but endorses having short-term memory problems.. Non toxic. HENT: Head: Atraumatic. Nose: Nose normal. Mouth/Throat: Oral mucosa is clear and moist. no trismus. Pharynx normal. Tonsils symmetric. No tonsillar enlargement, erythema, or exudate. Eyes: Conjunctivae normal. EOM normal. Pupils equal, round, and reactive to light. No scleral icterus. Neck: Normal range of motion. Neck supple. No tracheal deviation present. No JVD Cardiovascular: Normal rate, regular rhythm. No gallop. No friction rub. No murmur heard. Symmetric radial and PT artery pulses Pulmonary/Chest: Effort normal. No stridor. No respiratory distress. No wheezes. No rales. No rhonchi . No tenderness. Abdominal: Soft. Bowel sounds normal. No distension. No mass. No tenderness. No rebound. No guarding. Musculoskeletal: RUE: Normal range of motion. No tenderness. No deformity LUE: Normal range of motion. No tenderness. No deformity RLE: Normal range of motion. 1+ edema. No tenderness. No deformity LLE: Normal range of motion. 1+ edema. No tenderness. No deformity Lymph: No cervical adenopathy. Neurological: Alert and oriented to person, place, and time. Normal strength. CN II-VII intact. No sensory deficit. GCS eye subscore is 4. GCS verbal subscore is 5. GCS motor subscore is 6. Normal coordination Skin: Skin is warm and dry. No rash noted. No pallor. Normal capillary refill. Psychiatric: Normal mood. Normal affect. Does not spend a lot of our conversation mentioning how she does not like living at [facility]. It is unclear whether not her chest pain could be due to degree for anxiety over her living situation. She otherwise is calm, upbeat, polite. Const: Vital Signs, click to edit/add: Vital Signs - 24 hr 01/15/23 13:20 01/15/23 13:30 01/15/23 13:32 Temperature 97 F L Pulse Rate 73 62 Pulse Rate [Pulse Oximeter] 66 Respiratory Rate 16 Blood Pressure 124/75 Blood Pressure [Le ft Upper Arm] 144/80 H Pulse Oximetry 96 92 93 Oxygen Delivery Me thod Room Air 01/15/23 13:33 01/15/23 14:00 01/15/23 14:01 Temperature Pulse Rate 67 66 63 Pulse Rate [Pulse Oximeter] Respiratory Rate Blood Pressure 125/77 Blood Pressure [Le ft Upper Arm] Pulse Oximetry 94 90 91 Oxygen Delivery Me thod 01/15/23 14:30 01/15/23 15:00 01/15/23 15:02 Temperature Pulse Rate 68 65 65 Pulse Rate [Pulse Oximeter] Respiratory Rate Blood Pressure 116/93 H Blood Pressure [Le ft Upper Arm] Pulse Oximetry 91 92 94 Oxygen Delivery Me thod 01/15/23 15:30 01/15/23 15:32 01/15/23 16:00 Temperature Pulse Rate 63 70 70 Pulse Rate [Pulse Oximeter] Respiratory Rate Blood Pressure 118/72 Blood Pressure [Le ft Upper Arm] Pulse Oximetry 91 96 96 Oxygen Delivery Me thod 01/15/23 16:02 01/15/23 16:30 01/15/23 16:32 Temperature Pulse Rate 69 71 72 Pulse Rate [Pulse Oximeter] Respiratory Rate Blood Pressure 145/82 H 130/85 Blood Pressure [Le ft Upper Arm] Pulse Oximetry 93 91 94 Oxygen Delivery Me thod Course Vital Signs Vital signs: Initial Vital Signs Temperature 97 F L 01/15/23 13:20 Temperature Source Temporal Artery Scan 01/15/23 13:20 Pulse Rate 66 01/15/23 13:20 Respiratory Rate 16 01/15/23 13:20 Blood Pressure 144/80 H 01/15/23 13:20 Blood Pressure Mean 101 01/15/23 13:20 Blood Pressure Position Supine 01/15/23 13:20 Pulse Oximetry 96 01/15/23 13:20 Oxygen Delivery Method Room Air 01/15/23 13:20 Vital Signs Temperature 97 F L 01/15/23 13:20 Pulse Rate 66 01/15/23 13:20 Respiratory Rate 16 01/15/23 13:20 Blood Pressure 144/80 H 01/15/23 13:20 Pulse Oximetry 96 01/15/23 13:20 Oxygen Delivery Method Room Air 01/15/23 13:20 Temperature 97 F L 01/15/23 13:20 Pulse Rate 72 01/15/23 16:32 Respiratory Rate 16 01/15/23 13:20 Blood Pressure 130/85 01/15/23 16:32 Pulse Oximetry 94 01/15/23 16:32 Oxygen Delivery Method Room Air 01/15/23 13:20 Medical Decision Making MDM Narrative Medical decision making narrative: This patient presents to the ER today for evaluation of chest pain that began this morning without exertion while she was watching TV.. Differential was broad. No evidence of palpitations, syncope or other cardiac dysrhythmia. We considered possible ACS, however workup with EKG and troponin is negative. Serial troponins are normal here in the ER. Given time since onset of symptoms, I do not think the patient needs to be admitted for further sets of enzymes. History of be very atypical with chest pain beginning while watching TV I had no antecedent chest pains recently to suggest unstable angina requiring admission or stress testing. EKG shows no evidence for pericarditis. Clinical presentation not suggestive of myocarditis. Chest x-ray shows no evidence for pneumonia, pneumothorax, pulmonary edema, pleural effusion, rib fracture, cardiomegaly. Mediastinum is normal on the x-ray. The patient has no ripping or tearing pain through to the back and has symmetric pulses on exam, no other acute neuro findings so I doubt aortic dissection. Risk of radiation and contrast exposure would outweigh the benefit of CT angiogram. We considered PE for this patient. Or a screening D-dimer is normal. Overall low risk. Will hold off on CT PA. No wheezing or bronchospasm to suggest COPD/asthma. No signs of chest wall cellulitis, shingles, injury. She does have history of chest pains. She is endorsing some stress and anxiety and grief because she does not like her living situation. She recently stayed for a few days with her son. It sounds like she may be unhappy East living at [facility]. I wonder if the pain could be related to grief or possibly anxiety. Discussed with the patient that this cannot be confirmed here in the ER. However other workup is reassuring. She is desiring discharge home . With reasonable clinical confidence, I think the patient is safe for outpatient follow up. Discussed return precautions. Questions answered. Patient voices comfort with the plan. Lab Data Labs: Lab Results 01/15/23 01/15/23 01/15/23 Range/Units 13:40 16:37 Unknown WBC 8.11 (4.50-11.00) K/uL RBC 4.40 (4.00-5.20) m/uL Hgb 11.3 L (12.0-16.0) gm/dL Hct 36.4 (33.0-51.0) % MCV 83 (80-100) fL MCH 26 (26-34) pg MCHC 31 L (32-36) gm/dL RDW Coeff of Anamika 15.2 (11.5-15.5) % Plt Count 476 H (140-440) K/uL Neut % (Auto) 53.0 (42.0-72.0) % Lymph % (Auto) 31.9 (20-44) % [place] % (Auto) 7.5 (0.0-11.0) % Eos % (Auto) 6.2 (0.0-7.0) % Baso % (Auto) 1.2 (0.0-3.0) % Neut # (Auto) 4.29 (1.7-7.0) K/uL Lymph # (Auto) 2.59 (0.90-2.90) K/uL [place] # (Auto) 0.60 (0.00-0.90) K/UL Eos # (Auto) 0.50 (0.00-0.50) K/uL Baso # (Auto) 0.10 (0.00-0.30) K/uL Abs Immat Gran (auto) 0.02 (0.00-0.30) K/uL Imm/Tot Granulo (auto) 0.2 % INR Cancelled 1.07 D-Dimer Quant (PE/DVT) 0.31 (0.00-0.50) ug/ml Sodium 139 (135-149) mmol/L Potassium 3.6 (3.6-5.1) mmol/L Chloride 104 (96-114) mmol/L Carbon Dioxide 26 (20-32) mmol/L Anion Gap 9 (7-15) mEq/L BUN 13 (7-30) mg/dL Creatinine 0.7 (0.5-1.5) mg/dL Estimated Creat Clear 50.47 Estimated GFR 96 ml/min Glucose 165 H (60-115) mg/dL Calcium 8.9 (8.4-10.6) mg/dL Troponin I < 0.01 L < 0.01 L (0.01-0.04) ng/mL Imaging Data Chest x-ray: Attestation: I have reviewed the pertinent imaging results. My impression: no chf, pna, pntx Radiologist's impression: IMPRESSION: Lungs are clear. Mild cardiomegaly. ECG Data Attestation: I personally reviewed and interpreted this ECG as follows: Interpretation: Normal sinus rhythm with premature atrial complexes. Rate 69 TN 164 QRS axis normal axis. No pathologic Q-waves. ST segment/T wave: Nonspecific T-wave flattening throughout. No ST segment elevation or depression QTc: 467 Discharge Plan Discharge Clinical Impression: Chest pain Patient Disposition: Home, Self-Care Condition: Stable Instructions: Chest Pain (DC) Additional Instructions: Please come back to the ER right away if you have any more episodes of chest pain, trouble breathing, or any other concerning symptoms. Please have a recheck with your regular doctor within 3-5 days. Prescriptions: No Action acetaminophen 325 mg tablet 650 mg PO Q6H PRN (Reason: pain) amitriptyline 50 mg tablet 50 mg PO HS amlodipine 10 mg tablet 10 mg PO HS budesonide 0.5 mg/2 mL suspension for nebulization 0.5 mg inhalation BID glipizide 5 mg tablet 5 mg PO DAILY levothyroxine 25 mcg tablet 25 mcg PO DAILY metoprolol succinate 50 mg tablet extended release 24 hr 50 mg PO DAILY simvastatin 20 mg tablet 20 mg PO HS antacid suspension See Rx Instructions PO DAILY PRN Rx Instructions: 15-30ml orally daily PRN; sennosides [senna] 8.6 mg tablet 8.6 mg PO BID PRN rizatriptan 5 mg tablet 5 mg PO DAILY PRN Rx Instructions: may repeat once after 2 hours polyethylene glycol 3350 17 gram/dose powder 17 g PO DAILY PRN albuterol sulfate [Ventolin HFA] 90 mcg/actuation HFA aerosol inhaler 2 puff INHALATION Q4H PRN diphenhydramine HCl [Banophen] 25 mg capsule 25 mg PO Q8H PRN (Reason: allergic symptoms) Rx Instructions: 1-2 caps prn hydroxyzine HCl 25 mg tablet 25 mg PO HS PRN (Reason: anxiety) nitroglycerin 0.4 mg tablet, sublingual 0.4 mg sublingual Q5M PRN Rx Instructions: max 3 tabs within 15 minutes naproxen sodium [All Day Pain Relief] 220 mg tablet 220 mg PO .once weekly PRN omeprazole 40 mg capsule,delayed release(DR/EC) 40 mg PO DAILY Qty: 14 0RF aspirin 325 mg tablet,delayed release (DR/EC) 325 mg PO DAILY escitalopram oxalate 5 mg tablet 5 mg PO DAILY calcium carbonate 200 mg calcium (500 mg) tablet,chewable 200 mg PO PRN Rx Instructions: Chew 215 mg of calcium daily as needed for indigestion or heartburn. Follow Up/Referrals: Kandace Mckeon DO [Primary Care Provider] - Stand Alone Forms: [facility] Info Instructions
--- NOTE | 2023-01-15 13:30 | CRLHL7_ITS ---
For Patients: As a result of the Century Cures Act, medical imaging exams and procedure reports are released immediately into your electronic medical record. You may view this report before your referring provider. If you have questions, please contact your health care provider. INDICATION: Chest pain COMPARISON: 01/08/2022, 11/28/2020 TECHNIQUE: PA and lateral 2 view chest radiograph. FINDINGS: The lungs are well expanded. No focal consolidations. No pulmonary edema. No pleural effusion. No pneumothorax. No pneumomediastinum. Mild cardiomegaly. Bones: Normal for age. IMPRESSION: Lungs are clear. Mild cardiomegaly. Dictated by Trudi Vu MD @ 01/15/2023 4:12:35 PM (Electronically Signed)
[2023-01-15 13:53] LABS: Basophils Percent Auto 1.2 % (0.0-3.0); Eosinophils Percent Auto 6.2 % (0.0-7.0); Hematocrit 36.4 % (33.0-51.0); Hemoglobin* 11.3 gm/dL (12.0-16.0); Immature Granulocytes Abs Auto 0.02 K/uL (0.00-0.30); Immature Granulocytes Pct Auto 0.2 %; Lymphocytes Absolute Auto 2.59 K/uL (0.90-2.90); Lymphocytes Percent Auto 31.9 % (20-44); Mean Corpuscular HGB Conc 31 gm/dL (32-36); Mean Corpuscular Hemoglobin 26 pg (26-34); Mean Corpuscular Volume 83 fL (80-100); Monocytes Percent Auto 7.5 % (0.0-11.0); Neutrophils Absolute Auto 4.29 K/uL (1.7-7.0); Platelet Count* 476 K/uL (140-440); RDW Coefficient of Variation % 15.2 % (11.5-15.5); White Blood Count* 8.11 K/uL (4.50-11.00)
[2023-01-15 14:20] LABS: Chloride* 104 mmol/L (96-114); Potassium* 3.6 mmol/L (3.6-5.1); Sodium* 139 mmol/L (135-149)
[2023-01-15 14:22] LABS: INR 1.07 (0.91-1.10); Prothrombin Time 14.5 Seconds
[2023-01-15 14:23] LABS: Anion Gap 9 mEq/L (7-15); Blood Urea Nitrogen* 13 mg/dL (7-30); Carbon Dioxide* 26 mmol/L (20-32); Creatinine* 0.7 mg/dL (0.5-1.5); Est. Creatinine Clearance* 50.47; Estimated Glomerular Filt Rate 96 ml/min; Glucose* 165 mg/dL (60-115)
[2023-01-15 14:24] LABS: Calcium* 8.9 mg/dL (8.4-10.6)
[2023-01-15 14:24] LABS: D Dimer Quantitative* 0.31 ug/ml (0.00-0.50)
[2023-01-15 14:26] LABS: Slide Review Reflex No
[2023-01-15 14:45] LABS: Troponin I* < 0.01 ng/mL (0.01-0.04)
[2023-01-15 17:28] LABS: Troponin I* < 0.01 ng/mL (0.01-0.04)
--- NOTE | 2023-01-15 18:24 | ED.NURSE ---
Report called GAIL Cosme at [facility]. Carmelina verbalized understanding of all d/c instructions. No questions or concerns.
== END 2023-01-15 18:25 | disposition home or self-care (01) ==
PROVIDERS: Emergency Provider Emergency Medicine; PCP Family Medicine
DX: R07.9 Chest pain, unspecified (principal)
CPT/HCPCS: 36415; 71046; 80048; 84484; 85025; 85379; 85610; 99283; 99284

== ENCOUNTER 2023-04-22 13:00 | Outpatient (RCR) | payer MEDICAID, MEDICARE, SELFPAY | END 2023-08-20 23:59 | disposition home or self-care (01) | PROVIDERS: PCP Family Medicine; Visit Provider Family Medicine | DX: M54.50 Low back pain, unspecified (principal); Z51.89 Encounter for other specified aftercare | CPT/HCPCS: 97110; 97116; 97140; 97162 ==

== ENCOUNTER 2023-05-12 21:28 | Emergency (ER) | payer OTHER, SELFPAY ==
[2023-05-12 21:31] VITALS: BP 151/103; PULSE 73; RESP 18; TEMP 36.4; O2SAT 96; BMI 32.8
--- NOTE | 2023-05-12 21:44 | XR_ITS ---
Final Report Patient: JUNI PALENCIA Facility:?[facility] Patient ID:?[id number] Site Patient ID:?[id number] Site :?[id number] Study:?XRay Hip Left -05/12/2023 10:02:23 PM Ordering Physician:SHARYN Final Report: Indication: Fall off bed. Technique: Left hip 3 views. Comparison: None. Findings: Bones: Alignment is normal. No fractures or bone lesions. Joint spaces: The hip joint spaces are preserved. Multilevel lower lumbar spondylosis. Soft tissues: Unremarkable. Impression: No evidence of an acute bony abnormality. Dictated by Jair Fatima MD @ 05/12/2023 10:04:46 PM (Electronic Signature)
--- NOTE | 2023-05-12 21:50 | ED_ITS ---
HPI - General Adult General Date Seen: 05/12/23 Chief complaint: Fall/Minor Trauma Stated complaint: Fall Time Seen by Provider: 05/12/23 21:31 Source: patient and RN notes reviewed Mode of arrival: wheelchair Limitations: no limitations History of Present Illness HPI narrative: Patient is a 68-year-old woman who reports that she fell out of bed, she says she accidentally did a somersault. She landed on her left hip. She complains of lateral hip pain. Unclear to me whether she has been ambulatory since the fall, I do not think she understood the question. No reported head or neck i njury. Related Data Home Medications Medication Instructions Recorded Confirmed acetaminophen 325 mg tablet 650 mg PO Q6H PRN pain 12/27/21 05/12/23 albuterol sulfate 90 mcg/actuation 2 puff inhalation Q4H PRN 12/27/21 05/12/23 aerosol inhaler (Ventolin HFA) amitriptyline 50 mg tablet 50 mg PO HS 12/27/21 05/12/23 amlodipine 10 mg tablet 10 mg PO HS 12/27/21 05/12/23 antacid See Rx Instructions PO DAILY PRN 12/27/21 05/12/23 budesonide 0.5 mg/2 mL suspension 0.5 mg inhalation BID 12/27/21 05/12/23 for nebulization diphenhydramine HCl 25 mg capsule 25 mg PO Q8H PRN allergic symptoms 12/27/21 05/12/23 (Banophen) glipizide 5 mg tablet 5 mg PO DAILY 12/27/21 05/12/23 hydroxyzine HCl 25 mg tablet 25 mg PO HS PRN anxiety 12/27/21 05/12/23 levothyroxine 25 mcg tablet 25 mcg PO DAILY 12/27/21 05/12/23 metoprolol succinate 50 mg 50 mg PO DAILY 12/27/21 05/12/23 tablet,extended release 24 hr nitroglycerin 0.4 mg sublingual 0.4 mg sublingual Q5M PRN 12/27/21 05/12/23 tablet rizatriptan 5 mg tablet 5 mg PO DAILY PRN 12/27/21 05/12/23 simvastatin 20 mg tablet 20 mg PO HS 12/27/21 05/12/23 naproxen sodium 220 mg tablet (All 220 mg PO .once weekly PRN 10/18/22 02/19/24 Day Pain Relief) calcium carbonate 200 mg calcium 200 mg PO PRN 04/29/22 06/17/22 (500 mg) chewable tablet aspirin 325 mg tablet,delayed 325 mg PO DAILY 01/15/23 05/12/23 release escitalopram oxalate 5 mg tablet 5 mg PO DAILY 01/15/23 05/12/23 escitalopram oxalate 10 mg tablet 10 mg PO DAILY 05/12/23 05/12/23 Previous Rx's Medication Instructions Recorded omeprazole 40 mg capsule,delayed 40 mg PO DAILY #14 caps 01/08/22 release Allergies Allergy/AdvReac Type Severity Reaction Status Date / Time duloxetine AdvReac Mild sleep Verified 05/12/23 21:39 disturbance and fatigue Review of Systems Status of ROS: Reports: 6 or more systems reviewed and unremarkable except as noted in History and below [facility] Medical History PTSD (post-traumatic stress disorder) ?F43.10 - Post-traumatic stress disorder, unspecified (ICD-10) Atrial fibrillation ?I48.91 - Unspecified atrial fibrillation (ICD-10) 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 - Dependent personality disorder (ICD-10) Hypertensive heart disease with heart failure ?I11.0 - Hypertensive heart disease with heart failure (ICD-10) Clear cell carcinoma of left kidney ?C64.2 - Malignant neoplasm of left kidney, except renal pelvis (ICD-10) Diabetes mellitus with hyperglycemia, without long-term current use of insulin ?E11.65 - Type 2 diabetes mellitus with hyperglycemia (ICD-10) Chronic constipation ?K59.09 - Other constipation (ICD-10) CHAPITO (obstructive sleep apnea) ?G47.33 - Obstructive sleep apnea (adult) (pediatric) (ICD-10) Mild persistent asthma ?J45.30 - Mild persistent asthma, uncomplicated (ICD-10) Migraine ?G43.909 - Migraine, unspecified, not intractable, without status migrainosus (ICD-10) Hypertension ?I10 - Essential (primary) hypertension (ICD-10) Hiatal hernia ?K44.9 - Diaphragmatic hernia without obstruction or gangrene (ICD-10) GERD (gastroesophageal reflux disease) ?K21.9 - Gastro-esophageal reflux disease without esophagitis (ICD-10) Fibromyalgia ?M79.7 - Fibromyalgia (ICD-10) Depression ?F32.A - Depression, unspecified (ICD-10) Chronic fatigue syndrome ?G93.32 - Myalgic encephalomyelitis/chronic fatigue syndrome (ICD-10) Surgical History H/O: hysterectomy ?Z90.710 - Acquired absence of both cervix and uterus (ICD-10) History of cholecystectomy ?Z90.49 - Acquired absence of other specified parts of digestive tract (ICD- 10) H/O section ?Z98.891 - History of uterine scar from previous surgery (ICD-10) S/P appendectomy ?Z90.49 - Acquired absence of other specified parts of digestive tract (ICD- 10) Social History Smoking Status: Never smoker Do you use any of these nicotine containing products: None Second hand tobacco smoke exposure: No How often do you have a drink containing alcohol: never How often do you have six or more drinks on one occasion: Never AUDIT-C Alcohol total score: 0 Non-prescribed substance use: denies use service: No Exam Narrative: Exam Narrative: Vital signs reviewed In general, alert, nontoxic woman. Head: Normocephalic, atraumatic. ENT: No facial trauma. Neck: Nontender to palpation. Extremities: Examination of the left hip shows no bruising, swelling, or deformity. She seems to tolerate gentle range of motion of the left hip. She has tenderness to palpation over the entire lateral hip area. Distal CMS intact. The left leg does appear slightly shortened but I can not tell whether this is because she is just shifted a little asymmetrically in the bed. Skin: Warm dry well perfused. Const: Vital Signs, click to edit/add: Vital Signs - 24 hr 05/12/23 21:31 Temperature 97.6 F Pulse Rate [Pulse Oximeter] 73 Respiratory Rate 18 Blood Pressure [Le ft Upper Arm] 151/103 H Pulse Oximetry 96 Oxygen Delivery Me thod Room Air Documenting provider has reviewed patient's vital signs: yes Course Course ED Course: X-rays of the left hip are negative by my review, negative by final radiology read. Her exam is not overly suggestive of a joint problem but more of soft tissue contusion. She is ambulatory without difficulty although she says it are hurts and lateral hip when she walks. Will go ahead and give her some ibuprofen. For now would recommend conservative measures given that she is weight-bearing without difficulty. Ibuprofen and Tylenol, ice. If not improving over the next week or if weight-bearing becomes difficult she should be seen again. Vital Signs Vital signs: Initial Vital Signs Temperature 97.6 F 05/12/23 21:31 Temperature Source Temporal Artery Scan 05/12/23 21:31 Pulse Rate 73 05/12/23 21:31 Respiratory Rate 18 05/12/23 21:31 Blood Pressure 151/103 H 05/12/23 21:31 Blood Pressure Mean 119 H 05/12/23 21:31 Blood Pressure Position Sitting 05/12/23 21:31 Pulse Oximetry 96 05/12/23 21:31 Oxygen Delivery Method Room Air 05/12/23 21:31 Vital Signs Temperature 97.6 F 05/12/23 21:31 Pulse Rate 73 05/12/23 21:31 Respiratory Rate 18 05/12/23 21:31 Blood Pressure 151/103 H 05/12/23 21:31 Pulse Oximetry 96 05/12/23 21:31 Oxygen Delivery Method Room Air 05/12/23 21:31 Temperature 97.6 F 05/12/23 21:31 Pulse Rate 73 05/12/23 21:31 Respiratory Rate 18 05/12/23 21:31 Blood Pressure 151/103 H 05/12/23 21:31 Pulse Oximetry 96 05/12/23 21:31 Oxygen Delivery Method Room Air 05/12/23 21:31 Discharge Plan Discharge Clinical Impression: Contusion of hip Patient Disposition: Home, Self-Care Condition: Stable Instructions: Hip Contusion (ED) Additional Instructions: Ibuprofen or Tylenol as needed. Ice can be very helpful for this type of injury as well, 15-20 minutes 3 times a day for the next few days. X-rays are normal today, there is no evidence of broken bones. If however you find that over the next few days your not gradually improving or becomes difficult to walk, return for re-evaluation. Prescriptions: No Action acetaminophen 325 mg tablet 650 mg PO Q6H PRN (Reason: pain) amitriptyline 50 mg tablet 50 mg PO HS amlodipine 10 mg tablet 10 mg PO HS budesonide 0.5 mg/2 mL suspension for nebulization 0.5 mg inhalation BID glipizide 5 mg tablet 5 mg PO DAILY levothyroxine 25 mcg tablet 25 mcg PO DAILY metoprolol succinate 50 mg tablet extended release 24 hr 50 mg PO DAILY simvastatin 20 mg tablet 20 mg PO HS antacid suspension See Rx Instructions PO DAILY PRN Rx Instructions: 15-30ml orally daily PRN; rizatriptan 5 mg tablet 5 mg PO DAILY PRN Rx Instructions: may repeat once after 2 hours albuterol sulfate [Ventolin HFA] 90 mcg/actuation HFA aerosol inhaler 2 puff INHALATION Q4H PRN diphenhydramine HCl [Banophen] 25 mg capsule 25 mg PO Q8H PRN (Reason: allergic symptoms) Rx Instructions: 1-2 caps prn hydroxyzine HCl 25 mg tablet 25 mg PO HS PRN (Reason: anxiety) nitroglycerin 0.4 mg tablet, sublingual 0.4 mg sublingual Q5M PRN Rx Instructions: max 3 tabs within 15 minutes naproxen sodium [All Day Pain Relief] 220 mg tablet 220 mg PO .once weekly PRN omeprazole 40 mg capsule,delayed release(DR/EC) 40 mg PO DAILY Qty: 14 0RF aspirin 325 mg tablet,delayed release (DR/EC) 325 mg PO DAILY Hold Instructions: Pt denies escitalopram oxalate 5 mg tablet 5 mg PO DAILY escitalopram oxalate 10 mg tablet 10 mg PO DAILY calcium carbonate 200 mg calcium (500 mg) tablet,chewable 200 mg PO PRN Rx Instructions: Chew 215 mg of calcium daily as needed for indigestion or heartburn. Follow Up/Referrals: Kandace Mckeon DO [Primary Care Provider] - Stand Alone Forms: [facility] Info Instructions
--- OUTSIDE RECORDS SUMMARY | 2023-05-12 22:06 | XMS_ITS | Clinical Summary ---
Author Name Unknown Organization [facility] Address [place], [place] [address] Care Team Providers Care Billposting Supervisor Name Role Phone Kandace Mckeon DO Primary Care Provider Parish Ruffin MD Unavailable Unavailable Kwaku Wild MD Unavailable [phone] Kari Hunt PhD, LP Unavailable [phone]- [phone] Allergies Active Allergy Reactions Criticality Noted Date Comments Duloxetine Other - Describe In Comment Field 01/19/2021 sleep disturbance and fatigue. Medications Medication Sig Dispensed Refills Start Date End Date Status Trolamine Salicylate (ASPERCREME) 10 % lotion Apply 1 Applicator topically to affected area(s) 4 times daily if needed (pain in legs or where needed). 0 Active calcium carbonate (ANTACID CALCIUM) 215 mg calcium (500 mg) chew Chew 2-4 tablets by mouth between meals and at bedtime as needed. 0 06/30/2019 Active medication order composerIndications: HTN (hypertension) Resident is to self check blood pressure once weekly or as needed. 1 Each 0 08/26/2019 Active nystatin powder (MYCOSTATIN) powderIndications:Ti jerman cruris Apply 1 Strip topically to affected area(s) 3 times daily. 60 g 0 09/02/2019 Active aspirin-acetaminophe n-caffeine (EXCEDRIN EX STR) 250-250-65 mgIndications:Migrai ne without aura and without status migrainosus, not intractable Take 1 Tablet by mouth every 6 hours if needed for Headache. Max acetaminophen dose: 4000mg in 24 hrs. 0 09/04/2020 Active NebulizerIndications :Mild persistent asthma without complication Nebulizer, disposable neb kit x 4, reuseable neb kit x 1, mask x 1, filters x 1. Frequency of use: daily; Medication: budesonide neb Length of need: 99 months 1 Each 0 11/08/2020 Active blood-glucose meterIndications:Geeta betes mellitus type 2, uncontrolled, with complications Dispense meter, test strips, lancets covered by pt ins. E11.65 NIDDM type II, uncontrolled - Test 2 times/day. Reason: High A1C 1 Each 0 02/01/2021 Active Gavilax 17 gram/dose powderIndications:Ch ronic constipation As directed 1 scoop (17 g) once daily if needed for Constipation. Mix 17g in 4-8 oz of water or juice and drink daily as needed. 1530 g 0 02/28/2021 Active Accu-Chek Softclix LancetsIndications:D iabetes mellitus type 2, controlled, without complications (HC) TEST TWICE DAILY 200 Each 3 04/09/2021 Active blood sugar diagnostic (Accu-Chek Guide test strips) stripIndications:Geeta betes mellitus type 2, controlled, without complications (HC) As directed 2 times daily. 200 Each 3 08/09/2021 Active hydrOXYzine HCL (ATARAX) 25 mg tabletIndications:De pression with anxiety Take 1 Tablet (25 mg) by mouth at bedtime if needed for Anxiety. 30 Tablet 12 10/17/2021 Active sennosides (SENNA) 8.6 mg tablet Take 8.6 mg by mouth two times daily. 0 12/27/2021 Active Walker - 4 wheelsIndications:Fi bromyalgia,Chronic midline low back pain with left-sided sciatica For home use. 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 283 g 11 06/13/2022 Active levothyroxine (SYNTHROID) 25 mcg tabletIndications:Hy pothyroidism (acquired) TAKE 1 TABLET BY MOUTH DAILY @NOON 28 Tablet 11 06/27/2022 Active nitroglycerin (NITROSTAT) 0.4 mg sublingual tabletIndications:Hy pertensive heart disease with heart failure (HC) Place 1 Tablet (0.4 mg) under the tongue every 5 minutes if needed for Chest Pain. 25 Tablet 1 09/16/2022 Active metoprolol succinate (TOPROL XL) 50 mg sustained-release tabletIndications:Es sential hypertension with goal blood pressure less than 130/80,New onset atrial fibrillation (HC) TAKE 1 TABLET BY MOUTH DAILY @NOON 90 Tablet 2 09/19/2022 Active simvastatin (ZOCOR) 20 mg tabletIndications:Mi xed hyperlipidemia TAKE 1 TABLET BY MOUTH EVERY NIGHT AT BEDTIME 90 Tablet 2 09/19/2022 Active Ventolin HFA 90 mcg/actuation inhalerIndications:M ild persistent asthma without complication INHALE 2 PUFFS BY MOUTH EVERY 4 HOURS NEEDED 18 g 12 12/12/2022 Active clotrimazole (Antifungal, Clotrimazole,) 1 % creamIndications:Tin ea pedis of left foot Apply topically to affected area(s) 2 times daily if needed (yeast rash). 28 g 2 12/23/2022 Active omeprazole (PRILOSEC) 40 mg Delayed-Release capsuleIndications:H iatal hernia with GERD,Chronic GERD Take 1 Capsule (40 mg) by mouth once daily. 90 Capsule 3 01/03/2023 Active budesonide (PULMICORT RESPULES) 0.5 mg/2 mL neb suspensionIndication s:Mild persistent asthma without complication Inhale 2 mL (0.5 mg) via a nebulizer two times daily. 120 mL 8 01/27/2023 Active escitalopram oxalate (LEXAPRO) 5 mg tabletIndications:De pression with anxiety Take 1 Tablet (5 mg) by mouth every morning. INcrease to 10mg by mouth after 2 weeks on 5mg. 90 Tablet 3 01/27/2023 Active rizatriptan (MAXALT) 5 mg tabletIndications:Mi graine without aura and without status migrainosus, not intractable Give at minimum 2hrs apart. Max Dose: 30mg per 24hrs.Give at minimum 2hrs apart. Max Dose: 30mg per 24hrs. 12 Tablet 3 01/27/2023 Active acetaminophen (TYLENOL) 325 mg tabletIndications:Ch ronic midline low back pain with left-sided sciatica TAKE 2 TABLETS EVERY 4-6 HOURS NEEDED FOR PAIN 60 Tablet 11 02/10/2023 Active Methyl Salicylate-Menthol (Icy Hot) 30-10 % topical creamIndications:Art hralgia, unspecified joint APPLY TOPICALLY 1 GRAM TOPICALLY EVERY 2 HOURS NEEDED 85 g 11 02/20/2023 Active amLODIPine (NORVASC) 10 mg tabletIndications:HT N (hypertension) TAKE 1 TABLET BY MOUTH EVERY NIGHT AT BEDTIME 90 Tablet 2 03/05/2023 Active amitriptyline (ELAVIL) 50 mg tabletIndications:Sl eep disorder TAKE 1 TABLET BY MOUTH EVERY NIGHT AT BEDTIME 90 Tablet 0 03/05/2023 Active aspirin enteric coated (ECOTRIN) 325 mg tabletIndications:At rial fibrillation, unspecified type (HC) Take 1 Tablet (325 mg) by mouth once daily with a meal. 90 Tablet 3 04/03/2023 Active glipiZIDE (GLUCOTROL) 5 mg tabletIndications:Di abetes mellitus type 2 with complications (HC) TAKE 1 TABLET BY MOUTH DAILY BEFORE A MEAL 60 Tablet 0 04/03/2023 Active loperamide (IMODIUM) 2 mg capsuleIndications:C hronic diarrhea TAKE 1 CAPSULE BY MOUTH EVERY MORNING WITH FIRST MEAL OF DAY *MAX 16MG IN 24 HOURS* 28 Capsule 12 04/03/2023 Active polyvinyl alcohol-povidone (Artificial Tears,pvalch-povid,) 0.5-0.6 % ophthalmic solutionIndications: Chronically dry eyes, bilateral INSTILL 1 DROP IN BOTH EYES TWICE DAILY NEEDED 15 mL 2 04/07/2023 Active escitalopram oxalate (LEXAPRO) 10 mg tablet Take 10 mg by mouth every morning. 0 02/21/2023 Active Lubricant Eye, PG-PEG 400, ophthalmic Place 1-2 Drops into both eyes 2 times daily if needed. 0 04/07/2023 Active Active Problems Patient Care Coordination No te Formatting of this note migh t be different from the original. My health, sons and grandchildren is what matters most to JUNI. JUNI would like her care team to know staying in situation where she is at and is interested in moving. What are JUNI's challenges, stressors, or barriers? Health and ex Problem Noted Date Diagnosed Date 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 et iologies 04/23/2023 Type 2 diabetes mellitus wit h other specified complication, without long-term current use of insulin 04/23/2023 Depression, recurrent 04/17/2022 Chronic constipation 01/15/2022 Type 2 diabetes mellitus wit h hyperglycemia, without long-term current use of insulin 10/18/2021 Clear cell carcinoma of left kidney 11/25/2020 Hypertensive heart disease with heart failure 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 New onset atrial fibrillation 06/10/2019 Acute on chronic diastolic (congestive) heart fa ilure 07/01/2018 Post traumatic stress disorder (PTSD) 03/20/2017 Controlled type 2 diabetes m ellitus without complication, without long-term current use of insulin 08/23/2015 Fibromyalgia 06/28/2015 Mild persistent asthma 06/28/2014 CHAPITO AHI-11 positional, 10/24/2009, 04/01/10 04/08/19 11 Chest pain, unspecified 12/19/2009 Overview: EGD 07/2015 normal Iron deficiency anemia, unspecified 07/27/2009 Mixed hyperlipidemia 07/27/2009 Depression with anxiety 05/24/2009 Migraine 05/24/2009 HTN (hypertension) 05/24/2009 Resolved Problems Problem Noted Date Diagnosed Date Resolved Date Acute exacerbation of chroni c obstructive pulmonary disease 05/08/2021 04/17/2022 Anticoagulation monitoring, INR range 2.5-3.5 06/11/19 20 05/24/2022 Mild persistent asthma 01/02/201207/30 Reactive airway disease 08/09/201111/22 CHAPITO AHI-11 positional, 10/24/2009, 04/01/10 04/08/2010 04/08/2010 Sleep apnea 12/19/2009 04/08/2010 CHAPITO AHI-11 positional, 10/24/2009 10/29/2009 04/08/2010 Unspecified hypothyroidism 07/27/2009 0 04/15/2014 Encounters Date Type Department Care Team Description 05/06/2023 Patient Outreach [facility] Management - Care Management Navigation/[facility] [address] [place] [address] Domingo, [place] Population Health (Care Guide Community Resource Navigation/) 04/30/2023 12:00 PM [employer]ER Ancillary Procedure [facility] [address] [place] [address] 04/30/2023 11:30 AM [employer] SELLER Ancillary Procedure [facility] [address] [place] [address] 04/30/2023 Travel 04/23/2023 11:30 AM [employer] Office Visit [facility] [address] [place] [address] Kandace Mckeon DO Gi Problem 04/23/2023 Travel 04/06/2023 Refill [facility] [address] [place] [address] Kandace Mckeon DO Refill Request (Artificial Tears(pvalch-povid)) 04/01/2023 Refill [facility] [address] [place] [address] Kandace Mckeon DO Refill Request (Aspirin Enteric Coated, Glipizide, Loperamide) 03/04/2023 Refill [facility] [address] [place] [address] Kandace Mckeon DO Refill Request (Amlodipine, Amitriptyline) 02/19/2023 Refill [facility] [address] [place] [address] Kandace Mckeon DO Refill Request (ICY HOT ORIG CREAM PAIN RELIF) from Last 3 Months Immunizations Name Administration Dates Next Due AMB Influenza, IIV4 PF (=>6 mos Flulaval,Fluzone Fluarix)(Flu Clinic Only) 12/23/2019 COVID-19 vaccine (Moderna 100mcg/0.5mL) PF, MDV 05/04/2020,04/06/2020 COVID-19 vaccine (Pfizer-Bio NTech 30mcg/0.3mL) PF, MDV 01/19/2021 Influenza RIV4 (Age 18+ Year s) PRESERV FREE 12/30/2018 Influenza, IIV3 (Age 6-35 mos) 01/22/2012,2010 Influenza, IIV3 (Age >=3 years) 12/02/2012,11/28,01/04/2010 Influenza, IIV4 12/12/2021,,12/24/2017,2016,12/13/2015,04/05/2015,04/15/2014,0 12/07/2012,01/22/2012 Influenza, Inactivated AIIV4 (Age 65+ Years) Preserv Free 01/03/2023 Pneumococcal Conj 20-valent (Prevnar 20) 03/05/2022 Pneumococcal Poly,23-Valent (Pneumovax) 04/05/2015,01/25/2008 Td, Preservative Free (age > = 7 Years) 05/24/2009 Tdap 03/05/2022,01/22/2012 Tuberculin (PPD) 12/26/2010 Family History Medical History Relation Name Comments Heart Disease Father Hypertension Father Other Mother Parkinsons Cancer-breast Paternal Aunt Cancer-ovarian No Family History Relation Name Status Comments Father Mother Paternal Aunt Social History Tobacco Use Types Packs/Day Years Used Date Smoking Tobacco: Never Cigarettes 25 Passive Smoke Exposure: Yes Smokeless Tobacco: Never Tobacco Cessation:Counseling Given: Yes Comments:roommate smokes and exposed for along time Alcohol Use Standard Drinks/Week Comments Yes 0 (1 standard drink = 0.6 oz pur e alcohol) occassional PHQ-2 Answer Date Recorded PHQ-2 TOTAL SCORE 5 04/23/2023 Social Connections Answer Date Recorded Frequency of Communication with Friends and Fami ly 4 04/23/2023 Financial Resource Strain Answer Date R ecorded Difficulty of Paying Living Expenses 2 04/23/2023 Difficulty of Paying Living Expenses 1 04/23/2023 Food Insecurity Answer Date Recorded Worried About Running Out of Food in the Last Ye ar 2 04/23/2023 Transportation Needs Answer Date Record ed Lack of Transportation (Medical) 2 04/23/2023 Housing Stability Answer Date Recorded Unable to Pay for Housing in the Last Year 2 04/23/2023 Sex and Gender Information Value Date Recorded Sex Assigned at Not on file Gender Identity Not on file Sexual Orientation Not on file Obstetrics History Last Filed Vital Signs Vital Sign Reading Time Taken Comments Blood Pressure 124/82 04/23/2023 11:40 AM [employer] Pulse 75 04/23/2023 11:40 AM [employer] Temperature 36.8 ??C (98.2 ??F) 01/27/2023 3:09 PM CS T Respiratory Rate 16 07/31/2022 3:18 PM CDT Oxygen Saturation 95% 04/23/2023 11:40 AM [employer] Inhaled Oxygen Concentration - - Weight 94.8 kg (209 lb) 04/23/2023 11:40 AM [employer] SE[employer] Height 163 cm (5' 4.17) 06/12/2022 2:26 PM CDT Body Mass Index 35.68 06/12/2022 2:26 PM CDT Plan of Treatment Upcoming Encounters Date Type Department Care Team (Late st Contact Info) Description 05/14/2023 11:30 AM [employer] Office Visit [facility] [address] [place] [address] Kandace Mckeon DO [address] [place] [address] 05/19/2023 3:00 PM [employer]ER Office Visit [facility] [address] [place] [address] Gelacio Vera MD [address] [place] [address] 05/28/2023 2:15 PM [employer] Office Visit [facility] [address] [place] [address] Kandace Mckeon DO [address] [place] [address] 06/04/2023 8:30 AM CDT Office Visit [facility] [address] [place] [address] Raulito Bruce, PhD, LP [address] [place] [address] Health Maintenance Due Date Last Done Comments Zoster (shingles) series for age 50+ (1 of 2) 2007 DEXA/DXA scan for age 65+ 2022 COVID-19 vaccine series ( season) 2022 01/19/2021, 05/04/2020, 04/06/2020 BMI (ht and wt on same day) for age 18+ 06/13/2023 06/12/2022, 08/08/2021, 09/04/2020, Additional history exists Medicare Wellness for age 65+ 06/13/2023, 10/11/2015, 10/07/2014, Additional history exists Depression screening for age 12+ 04/23/2024 04/23/2023, 01/27/2023, 11/29/2022, Additional history exists Mammogram for age 45-75 04/30/2024 04/30/19 24, 11/13/2021, 10/19/2020, Additional history exists Fecal testing sDNA-FIT ([place] guard) for age 45-75 12/11/2025 12/11/2022 Lipids for age 45-75 04/23/2028 04/23/2023, 05/22/2022, 06/16/2019, Additional history exists Tetanus booster 03/05/2032 03/05/2022, 12/24, 05/24/2009 Hepatitis C screening for ag e 18-79 Completed 10/07/2014 Pneumococcal series for age 65+ Completed 03/05/2022, 04/05/2015, 01/25/2008 Tdap Completed 03/05/2022, 01/22/2012 Influenza for age 65+ Completed 01/03/2023 , 12/12/2021, 01/19/2021, Additional history exists Goals Goal Patient Goal Type Associated Problems Recent Progress Patient-Stated? Author BLOOD PRESSURE-MAINTAI NS BP LESS THAN 130/80 Blood Pressure No Kandace Mckeon, DO Follow up with providers by 06/21/17 General Yes Reny Pratt LSW Note: - appointment with dental provider by 06/21/17 - appointment for DM eye exam and new eyeglasses by 06/21/17 Healthcare Directive General Yes Reny Pratt LSW Note: - work on completing healthcare directive by end of ACT episode Procedures Procedure Name Priority Date/Time Associated Diagnosis Comments XR MAMMO CRYSTAL BILAT SCREEN Routine 04/30/2023 12:30 PM [employer] Visit for screening mammogram CT ABDOMEN PELVIS W Routine 04/30/2023 1 2:08 PM [employer] Abdominal wall pain LIPID PANEL W REFLEX MEASURED LDL Routine 04/23/2023 1:00 PM [employer] Controlled type 2 diabetes mellitus without complication, without long-term current use of insulin (HC) BASIC METABOLIC PANEL Routine 04/23/2023 1:00 PM [employer] Controlled type 2 diabetes mellitus without complication, without long-term current use of insulin (HC) HEMOGLOBIN A1C Routine 04/23/2023 1:00 PM [employer] Controlled type 2 diabetes mellitus without complication, without long-term current use of insulin (HC) URINE ALBUMIN TO CREATININE RATIO, RANDOM Routine 04/23/2023 12:54 PM [employer]LLER Controlled type 2 diabetes mellitus without complication, without long-term current use of insulin (HC) from Last 3 Months Results * XR MAMMO CRYSTAL BILAT SCREEN (04/30/2023 12:30 PM [employer] SELLER) Anatomical Region Laterality Modality BREASTS, Breast Left, Breast Right Bilateral Mammography Impressions 04/30/2023 2:22 PM [employer] SE[employer]ER ??There is no radiographic evidence for malignancy. ??Recommend annual mammograms. MAMMOGRAM ASSESSMENT: ??ACR 1 Negative PATIENTS: You will also receive a letter with your examination results in an easy to read format. ??If you have questions about your results, please contact your referring provider. Narrative 04/30/2023 2:22 PM [employer] SE[employer]ER For Patients: As a result of the Cures Act, medical imaging exams and procedure reports are released immediately into your electronic medical record. You may view this report before your referring provider. If you have questions, please contact your health care provider. XR MAMMO CRYSTAL BILAT SCREEN [[id number]] CLINICAL HISTORY: ??This is an asymptomatic 68 y.o. patient. INDICATION FOR EXAM: Mammogram Screening. TECHNIQUE: CC & MLO views were obtained. ??This study was evaluated with the assistance of Computer-Aided Detection. Breast Tomosynthesis was used in interpretation. COMPARISON FILM: Yes 11/13/21 [facility] 10/19/20 [facility] FINDINGS: ??The breasts have scattered areas of fibroglandular density. There are no dominant masses, suspicious micro calcifications or areas of architectural distortion. Kandace Mckeon DO MAMMO * CT ABDOMEN PELVIS W (04/30/2023 12:08 PM [employer] SE[employer]ER) Anatomical Region Laterality Modality Abdomen, Pelvis, AORTA, LIVER, SPLEEN Computed Tomography 04/30/2023 5:18 PM [employer] SELLER Narrative 04/30/2023 5:18 PM [employer] SELLER For Patients: ??As a result of the Century Cures Act, medical imaging exams and procedure reports are released immediately into your electronic medical record. ??You may view this report before your referring provider. ??If you have questions, please contact your health care provider. Indication: Abdominal wall pain Technique: Post contrast CT abdomen and pelvis. 100 cc Omnipaque 350 intravenous contrast. Please note that all CT scans at this facility use dose modulation, iterative reconstruction, and/or weight-based dosing when appropriate to reduce radiation dose to as low as reasonably achievable. Comparison: 11/30/2019 Findings: There is no bowel obstruction. No abdominal wall hernia or fluid collection. The bladder is normal. No pelvic mass. Patchy parenchymal densities are present within the left lower lobe posteriorly. No pleural effusion. Hiatal hernia measuring 5.3 cm. Fatty liver. No intrahepatic masses. Gallbladder absent. Normal adrenal glands. Low-density mass within the posterior left kidney measures 2.3 cm. No hydronephrosis. Spleen normal. Pancreas normal. No fracture. Degenerative facet arthropathy lower lumbar spine with mild degenerative anterolisthesis of L4 on L5. No vertebral body compression fracture. Stable bone island in the upper sacrum. Impression: Increased size of suspicious left renal mass now measuring 2.3 cm consistent with renal cell carcinoma, as before. No bowel obstruction or free air. No inflammatory changes. Excess stool in the cecum which could represent constipation. No abdominal wall hernia. No diverticulitis. Moderately severe hepatic steatosis. Chronic hiatal hernia. Ill-defined nodular densities within the left lower lobe could represent infiltrates although short-term follow-up chest CT recommended. Please note that all CT scans at this facility use dose modulation, iterative reconstruction, and/or weight-based dosing when appropriate to reduce radiation dose to as low as reasonably achievable. Dictated by Ramin Ag MD @ 04/30/2023 5:18:44 PM (Electronically Signed) Procedure Note Ramin Ag MD - 04/30/2023 For Patients: As a result of the Century Cures Act, medical imagingexams and procedure reports are released immediately into your electronicmedical record. You may view this report before your referring provider.If you have questions, please contact your health care provider. Indication: Abdominal wall pain Technique: Post contrast CT abdomen and pelvis. 100 cc Omnipaque 350 intravenouscontrast. Please note that all CT scans at this facility use dose modulation,iterative reconstruction, and/or weight-based dosing when appropriate toreduce radiation dose to as low as reasonably achievable. Comparison: 11/30/2019 Findings: There is no bowel obstruction. No abdominal wall hernia or fluidcollection. The bladder is normal. No pelvic mass. Patchy parenchymaldensities are present within the left lower lobe posteriorly. No pleuraleffusion. Hiatal hernia measuring 5.3 cm. Fatty liver. No intrahepaticmasses. Gallbladder absent. Normal adrenal glands. Low-density mass withinthe posterior left kidney measures 2.3 cm. No hydronephrosis. Spleennormal. Pancreas normal. No fracture. Degenerative facet arthropathy lowerlumbar spine with mild degenerative anterolisthesis of L4 on L5. Novertebral body compression fracture. Stable bone island in the uppersacrum. Impression: Increased size of suspicious left renal mass now measuring 2.3 cmconsistent with renal cell carcinoma, as before. No bowel obstruction or free air. No inflammatory changes. Excess stool inthe cecum which could represent constipation. No abdominal wall hernia. No diverticulitis. Moderately severe hepatic steatosis. Chronic hiatal hernia. Ill-defined nodular densities within the left lower lobe could representinfiltrates although short-term follow-up chest CT recommended. Please note that all CT scans at this facility use dose modulation,iterative reconstruction, and/or weight-based dosing when appropriate toreduce radiation dose to as low as reasonably achievable. Dictated by Ramin Ag MD @ 04/30/2023 5:18:44 PM (Electronically Signed) Kandace Mckeon DO CT * LIPID PANEL W REFLEX MEASURED LDL (04/23/2023 1:00 PM [employer]) CHOLESTEROL,TOTAL 193 100 - 199 mg/dL 04/24/2023 10:01 AM [employer] [facility] Comment: Cholesterol, Total Reference Ranges Desirable <200 mg/dL Borderline 200-239 mg/dL High >=240 mg/dL TRIGLYCERIDES 144 <150 mg/dL 04/24/2023 10:01 AM [facility] [employer] HDL CHOLESTEROL 52 >40 mg/dL 10:01 AM [employer] SELLER [facility] NON-HDL CHOLESTEROL 141 <145 mg/dl 04/24/2023 10:01 AM [employer] SE[employer]ER [facility] CHOL/HDL RATIO 3.71 <4.50 04/24/2023 10:01 AM [employer] SE[employer]ER [facility] LDL CHOLESTEROL 112 <=130 mg/dL 04/24/2023 10:01 AM [employer] SE[employer]ER [facility] VLDL CHOLESTEROL 29 <=30 mg/dL 04/24/2023 10:01 AM [employer] [facility] PROVIDER ORDERED STATUS RANDOM 04/24/2023 10:01 AM [facility] Blood BLOOD SPECIMEN / Unknown Venipuncture / Unknown 04/23/2023 1:00 PM [employer] 04/23/2023 1:01 PM [employer] Kandace Mckeon DO CHEMISTRY [facility] [address] [place] [address], * (ABNORMAL) HEMOGLOBIN A1C MONITORING (POCT) (04/23/2023 1:00 PM [employer] SELLER) HEMOGLOBIN A1C MONITORING (POCT) 7.2(H) <=6.4 % 04/23/2023 1:12 PM [facility] Blood BLOOD SPECIMEN / Unknown Venipuncture / Unknown 04/23/2023 1:00 PM [facility] 04/23/2023 1:01 PM [facility] Narrative [facility] - 04/23/2023 1:12 PM [employer] ? (<=6.9%) ? Indicates good control ? (7.0% to 7.9%) ? Indicates fair control ? (>=8.0%) ? Indicates poor control ?? NOTE: ??These thresholds are guidelines and ?individual targets may vary. Falsely low levels may be seen with: Recent Transfusion, Recent Significant Blood Loss, Hemolytic Diseases, or Falsely elevated levels may be seen with: Untreated Anemias, Splenectomy ? Kandace Mckeon DO CHEMISTRY [facility] [address] [place] [address], * (ABNORMAL) BASIC METABOLIC PANEL (04/23/2023 1:00 PM [facility]) [facility] SODIUM 139 136 - 145 mmol/L 04/24/2023 10:01 AM [facility] POTASSIUM 4.2 3.5 - 5.1 mmol/L 04/24/2023 10:01 AM [facility] CHLORIDE 100 98 - 107 mmol/L 04/24/2023 10:01 AM [facility] CO2,TOTAL 29 22 - 29 mmol/L 04/24/2023 10:01 AM [facility] ANION GAP 10 5 - 18 04/24/2023 10:01 AM [facility] GLUCOSE 102(H) 70 - 99 mg/dL 04/24/2023 10:01 AM [facility] CALCIUM 9.6 8.8 - 10.2 mg/dL 04/24/2023 10:01 AM [facility] BUN 12 8 - 23 mg/dL 04/24/2023 10:01 AM [facility] CREATININE 0.83 0.50 - 0.90 mg/dL 04/24/2023 10:01 AM [facility] BUN/CREAT RATIO 14 10 - 20 10:01 AM [facility] eGFR 78(L) >90 mL/min/1.7 3m2 04/24/2023 10:01 AM [facility] Comment:As of 2021, eG FR is calculated by the CKD-EPI creatinine equation without race adjustment. ??eGFR can be influenced by muscle mass, exercise, and diet. ??The reported eGFR is an estimation only and is only applicable if the renal function is stable. Blood BLOOD SPECIMEN / Unknown Venipuncture / Unknown 04/23/2023 1:00 PM [employer] [employer] [facility] 04/23/2023 1:01 PM [employer] Kandace Mckeon DO CHEMISTRY [facility] [address] [place] [address], * (ABNORMAL) URINE ALBUMIN TO CREATININE RATIO, RANDOM (04/23/2023 12:54 PM [employer] [employer]) ALB RAND URINE 64.1 mg/L 04/23/2023 11:29 PM [facility] CREATININE,URIN E 0.92 g/L 04/23/2023 11:29 PM [facility] ALBUMIN TO CREATININE RATIO,RAND UR 69.7(H) <30.0 mg/g creat 04/23/2023 11:29 PM [facility] Urine URINE SPECIMEN / Unknown Non-Blood / Unknown 04/23/2023 12:54 PM [employer] 04/23/2023 12:55 PM [employer] Narrative [facility] - 04/23/2023 11:29 PM [employer] If Albumin to Creatinine Ratio is elevated, consider the following: ? Elevations seen with incipient nephropathy associated ?? with diabetes mellitus or hypertension. Stress, exercise,hematuria, ?? and urinary tract infection may also produce elevated results. If clinically indicated, confirm with ?24 Hour Albumin to Creatinine Ratio. ?? Kandace Mckeon DO URINE [facility] [address] [place] [address], [place] from Last 3 Months Care Teams Billposting Supervisor Relationship Specialty Start Date End Date Kandace Mckeon DO [address] [place] [address] PCP - General 12/25/09 Parish Ruffin MD Pulmonology Pulmonary Medicine 12/04/11 Kwaku Wild MD [address] [place] [id number] Physical Medicine and Rehabilitation 10/07/14 Kari Hunt, PhD, [facility] [place] [address] Psychologist Psychology 12/10/16
[2023-05-12] MEDS: IBUPROFEN 200 MG TABLET 400 MG PO (22:50)
== END 2023-05-12 22:50 | disposition home or self-care (01) ==
PROVIDERS: Emergency Provider Emergency Medicine; PCP Family Medicine
DX: M25.552 Pain in left hip (principal); W06.XXXA Fall from bed, initial encounter
CPT/HCPCS: 73502; 99283; 99284; A9270

== ENCOUNTER 2024-03-30 21:58 | Emergency (ER) | payer OTHER, SELFPAY ==
--- OUTSIDE RECORDS SUMMARY | 2024-03-30 22:00 | XMS_ITS | Clinical Summary ---
Author Organization [employer] [facility] Address [place], [place] [address] Care Team Providers Care Moving Picture Producer Name Role Phone Kandace Mckeon DO Primary Care Provider Parish Ruffin MD Unavailable Unavailable Kwaku Wild MD Unavailable [phone] Kari Hunt PhD, LP Unavailable [phone] Allergies Active Allergy Reactions Criticality Noted Date Comments Duloxetine Other - Describe In Comment Field 01/19/2021 sleep disturbance and fatigue. Medications Trolamine Salicylate (ASPERCREME) 10 % lotion Apply 1 Applicator topically to affected area(s) 4 times daily if needed (pain in legs or where needed). Active calcium carbonate (ANTACID CALCIUM) 215 mg calcium (500 mg) chew Chew 2-4 tablets by mouth between meals and at bedtime as needed. 0 020 Active medication order composerIndicatio ns:HTN (hypertension) Resident is to self check blood pressure once weekly or as needed. 1 Each 020 Active nystatin powder (MYCOSTATIN) powderIndications :Tinea cruris Apply 1 Strip topically to affected area(s) 3 times daily. 60 g 020 Active aspirin-acetamino phen-caffeine (EXCEDRIN EX STR) 250-250-65 mgIndications:Omar matt without aura and without status migrainosus, not intractable Take 1 Tablet by mouth every 6 hours if needed for Headache. Max acetaminophen dose: 4000mg in 24 hrs. 0 021 Active NebulizerIndicati ons:Mild persistent asthma without complication Nebulizer, disposable neb kit x 4, reuseable neb kit x 1, mask x 1, filters x 1. Frequency of use: daily; Medication: budesonide neb Length of need: 99 months 1 Each 021 Active Gavilax 17 gram/dose powderIndications :Chronic constipation As directed 1 scoop (17 g) once daily if needed for Constipation. Mix 17g in 4-8 oz of water or juice and drink daily as needed. 1530 g 021 Active sennosides (SENNA) 8.6 mg tablet Take 8.6 mg by mouth two times daily. 022 Active Walker - 4 wheelsIndications :Fibromyalgia,Chr onic midline low back pain with left-sided sciatica For home use. Length of need: [address] 1 Each 023 Active psyllium powdIndications:C hronic constipation Mix 1 tsp in liquid then take by mouth once daily. 283 g 11 023 Active nitroglycerin (NITROSTAT) 0.4 mg sublingual tabletIndications :Hypertensive heart disease with heart failure (HC) Place 1 Tablet (0.4 mg) under the tongue every 5 minutes if needed for Chest Pain. 25 Tablet 1 023 Active Ventolin HFA 90 mcg/actuation inhalerIndication s:Mild persistent asthma without complication INHALE 2 PUFFS BY MOUTH EVERY 4 HOURS NEEDED 18 g 12 023 Active budesonide (PULMICORT RESPULES) 0.5 mg/2 mL neb suspensionIndicat ions:Mild persistent asthma without complication Inhale 2 mL (0.5 mg) via a nebulizer two times daily. 120 mL 8 023 Active acetaminophen (TYLENOL) 325 mg tabletIndications :Chronic midline low back pain with left-sided sciatica TAKE 2 TABLETS EVERY 4-6 HOURS NEEDED FOR PAIN 60 Tablet 11 023 Active aspirin enteric coated (ECOTRIN) 325 mg tabletIndications :Atrial fibrillation, unspecified type (HC) Take 1 Tablet (325 mg) by mouth once daily with a meal. 90 Tablet 3 Active loperamide (IMODIUM) 2 mg capsuleIndication s:Chronic diarrhea TAKE 1 CAPSULE BY MOUTH EVERY MORNING WITH FIRST MEAL OF DAY *MAX 16MG IN 24 HOURS* 28 Capsule 12 024 Active polyvinyl alcohol-povidone (Artificial Tears,pvalch-povi d,) 0.5-0.6 % ophthalmic solutionIndicatio ns:Chronically dry eyes, bilateral INSTILL 1 DROP IN BOTH EYES TWICE DAILY NEEDED 15 mL 2 024 Active NebulizerIndicati ons:Mild persistent asthma without complication Nebulizer, reuseable neb kit x 1, mask x 1, filters x 1. Frequency of use: twice daily; Medication: budesondie Length of need: 99 months 1 Each 024 Active levothyroxine (SYNTHROID) 25 mcg tabletIndications :Hypothyroidism (acquired) TAKE 1 TABLET BY MOUTH DAILY @NOON 28 Tablet 12 Active lancets (Accu-Chek Softclix Lancets)Indicatio ns:Type 2 diabetes mellitus with hyperglycemia, without long-term current use of insulin (HC) As directed two times daily. Dispense item covered by pt ins. E11.9 NIDDM type II - Test 2 times/day. Reason: High A1C 200 Each 3 Active blood sugar diagnostic (Blood Glucose Test) stripIndications: Type 2 diabetes mellitus with hyperglycemia, without long-term current use of insulin (HC) Dispense test strips covered by insurance Test 2 times per day. 200 Each 3 Active blood-glucose meterIndications: Type 2 diabetes mellitus with hyperglycemia, without long-term current use of insulin (HC) Dispense meter, test strips, lancets covered by pt ins.Test 2 times/day. E11.9 NIDDM type II Reason: High A1C 1 Each 024 Active simvastatin (ZOCOR) 20 mg tabletIndications :Mixed hyperlipidemia TAKE 1 TABLET BY MOUTH EVERY NIGHT AT BEDTIME 90 Tablet 2 024 Active hydrOXYzine HCL (ATARAX) 25 mg tabletIndications :Depression with anxiety TAKE 1 TABLET BY MOUTH AT BEDTIME NEEDED FOR ANXIETY 30 Tablet 024 Active Lubricant Eye, PG-PEG 400, ophthalmicIndicat ions:Dry eyes, bilateral Place 1-2 Drops into both eyes 3 times daily if needed for Dry Eyes. 10 mL 6 024 Active omeprazole (PRILOSEC) 40 mg Delayed-Release capsuleIndication s:Hiatal hernia with GERD,Chronic GERD Take 1 Capsule (40 mg) by mouth once daily. 90 Capsule 2 024 Active escitalopram oxalate (LEXAPRO) 10 mg tabletIndications :Depression with anxiety Take 1.5 Tablets (15 mg) by mouth once daily in the morning. 135 Tablet 3 024 Active clotrimazole (Antifungal, Clotrimazole,) 1 % creamIndications: Tinea pedis of left foot APPLY TO AFFECTED AREA(S) TWICE DAILY NEEDED FOR YEAST RASH *PATIENT SELF-ADMINISTERS * 28 g 3 024 Active amitriptyline (ELAVIL) 50 mg tabletIndications :Sleep disorder TAKE 1 TABLET BY MOUTH EVERY NIGHT AT BEDTIME 90 Tablet 024 Active metoprolol succinate (TOPROL XL) 50 mg sustained-release tabletIndications :Essential hypertension with goal blood pressure less than 130/80,New onset atrial fibrillation (HC) TAKE 1 TABLET BY MOUTH DAILY @NOON 90 Tablet 024 Active rizatriptan (MAXALT) 5 mg tabletIndications :Migraine without aura and without status migrainosus, not intractable TAKE 1 TABLET BY MOUTH DAILY NEEDED *GIVE AT MINIMUM OF 2 HRS APART, MAX DOSE 30MG PER 24 HRS* 12 Tablet 11 024 Active Methyl Salicylate-Mentho l (Icy Hot) 30-10 % topical creamIndications: Arthralgia, unspecified joint APPLY TOPICALLY 1 GRAM TOPICALLY EVERY 2 HOURS NEEDED 85 g 11 024 Active glipiZIDE (GLUCOTROL) 5 mg tabletIndications :Diabetes mellitus type 2 with complications (HC) TAKE 1 TABLET BY MOUTH DAILY BEFORE A MEAL 28 Tablet 12 024 Active amLODIPine (NORVASC) 10 mg tabletIndications :HTN (hypertension) TAKE 1 TABLET BY MOUTH EVERY NIGHT AT BEDTIME 28 Tablet 12 024 Active glipiZIDE (GLUCOTROL) 5 mg tabletIndications :Diabetes mellitus type 2 with complications (HC) TAKE 1 TABLET BY MOUTH DAILY BEFORE A MEAL 90 Tablet 024 2023 Discontinued amLODIPine (NORVASC) 10 mg tabletIndications :HTN (hypertension) TAKE 1 TABLET BY MOUTH EVERY NIGHT AT BEDTIME 30 Tablet 024 2023 Discontinued Active Problems Patient Care Coordination No te [...] without long-term current use of insulin 04/23/2023 Chronic constipation 01/15/2022 Type 2 diabetes mellitus wit h hyperglycemia, without long-term current use of insulin 10/18/2021 Clear cell carcinoma of left kidney 11/25/2020 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 Assessment & Plan (12/23/2023 8:08 AM CDT): out of situation with problems with this disorder. Lives [place] now. Kandace Mckeon D.O. 12/23/2023 8:08 AM New onset atrial fibrillation 06/10/2019 Post traumatic stress disorder (PTSD) 03/20/2017 Controlled type 2 diabetes m ellitus without complication, without long-term current use of insulin 08/23/2015 Fibromyalgia 06/28/2015 Mild persistent asthma 06/28/2014 CHAPITO AHI-11 positional, 10/24/2009, 04/01/10 04/08/19 11 Chest pain, unspecified 12/19/2009 Overview (08/18/2015): EGD 07/2015 normal Iron deficiency anemia, unspecified 07/27/2009 Mixed hyperlipidemia 07/27/2009 Depression with anxiety 05/24/2009 Migraine 05/24/2009 HTN (hypertension) 05/24/2009 Resolved Problems Problem Noted Date Diagnosed Date Resolved Date Depression, recurrent 04/17/20222023 Acute exacerbation of chroni c obstructive pulmonary disease 05/08/2021 04/17/2022 Hypertensive heart disease with heart failure 11/26/19 21 11/03/2023 Anticoagulation monitoring, INR range 2.5-3.5 06/11/19 20 05/24/2022 Acute on chronic diastolic ( congestive) heart failure 07/01/2018 11/03/2023 Mild persistent asthma 01/02/201207/30 Reactive airway disease 08/09/201111/22 CHAPITO AHI-11 positional, 10/24/2009, 04/01/10 04/08/2010 04/08/2010 Sleep apnea 12/19/2009 04/08/2010 CHAPITO AHI-11 positional, 10/24/2009 10/29/2009 04/08/2010 Unspecified hypothyroidism 07/27/2009 0 04/15/2014 Encounters Date Type Department Care Team Description 03/30/2024 Refill [facility] [address] [place] [address] Kandace Mckeon, Refill Request (Budesonide) 03/02/[address] [address] Kandace Mckeon, Refill Request (Glipizide, Amlodipine) 02/25/[address] [address] Kandace Mckeon, DO Refill Request (Icy Hot) 02/06/2024 Refill [facility] [address] [place] [address] Kandace Mckeon, Refill Request (Rizatriptan tab 2mg) 02/04/[address] [address] Kandace Mckeon, Refill Request (Amitriptyline, Metoprolol Succinate) 02/03/[address] [address] Kandace Mckeon, Refill Request (RIZATRIPTAN TAB 5MG) 01/11/[address] [place] [address] Kandace Mckeon, DO Refill Request (Antifungal (Clotrimazole)) 01/06/2024 Refill [facility] [address] [place] [address] Kandace Mckeon DO Refill Request (Amlodipine) 12/30/2023 3:40 PM CDT Office Visit [facility] [place] [facility] [address] [place] [address] Dimitri Rivas MD Follow Up (MRI) 12/30/2023 Travel from Last 3 Months Immunizations Name Administration Dates Next Due AMB Influenza, IIV4 PF (=>6 mos Flulaval,Fluzone Fluarix)(Flu Clinic Only) 12/23/2019 COVID-19 vaccine (Moderna 100mcg/0.5mL) PF, MDV 05/04/2020,04/06/2020 COVID-19 vaccine (Estech-Bio NTech 30mcg/0.3mL) PF, MDV 01/19/2021 Influenza RIV4 (Age 18+ Year s) PRESERV FREE 12/30/2018 Influenza, IIV3 (Age 6-35 mos) 01/22/2012,2010 Influenza, IIV3 (Age >=3 years) 12/02/2012,11/28,01/04/2010 Influenza, IIV4 12/12/2021,,12/24/2017,2016,12/13/2015,04/05/2015,04/15/2014,0 12/07/2012,01/22/2012 Influenza, Inactivated AIIV4 (Age 65+ Years) Preserv Free 01/03/2023 Influenza, Inactivated IIV3 (Age 65+ Years) Preserv Free 12/22/2023 Pneumococcal Conj 20-valent (Prevnar 20) 03/05/2022 Pneumococcal Poly,23-Valent (Pneumovax) 04/05/2015,01/25/2008 Td (Age >=7 Years) 05/24/2009 Td, Preservative Free (age > = 7 Years) 05/24/2009 Tdap 03/05/2022,01/22/2012 Tuberculin (PPD) 12/26/2010 Family History Medical History Relation Name Comments Heart Disease Father Hypertension Father Other Mother Parkinsons Cancer-breast Paternal Aunt Cancer-ovarian No Family History Relation Name Status Comments Father Mother Paternal Aunt Social History Tobacco Use Types Packs/Day Years Used Date Smoking Tobacco: Never Cigarettes Passive Smoke Exposure: Yes Smokeless Tobacco: Never Tobacco Cessation:Counseling Given: Yes Comments:roommate smokes and exposed for along time Alcohol Use Standard Drinks/Week Comments Not Currently 0 (1 standard drink = 0.6 oz pur e alcohol) occassional [facility] Utilities Answer Date Recorded Do you have trouble paying f or utilities (for example, heat, electricity, water, phone)? No 04/23/2023 PHQ-2 Answer Date Recorded PHQ-2 TOTAL SCORE 2 12/22/2023 Social Connections Answer Date Recorded Do you often feel lonely or isolated from those around you? 4 04/23/2023 Financial Resource Strain Answer Date R ecorded Difficulty of Paying Living Expenses 2 04/23/2023 Difficulty of Paying Living Expenses 1 04/23/2023 Food Insecurity Answer Date Recorded Do you worry your food will run out before you are able to buy more? 2 04/23/2023 Transportation Needs Answer Date Record ed Does lack of transportation keep you from medica l appointments? 1 04/23/2023 Does lack of transportation keep you from work, meetings or getting things that you need? 2 04/23/2023 Housing Stability Answer Date Recorded What is your housing situation today? 2 04/23/2023 Comments No Sex and Gender Information Value Date Recorded Sex Assigned at Not on file Legal Sex Female 5:26 AM [employer] Gender Identity Not on file Sexual Orientation Not on file Obstetrics History Last Filed Vital Signs Vital Sign Reading Time Taken Comments Blood Pressure 132/80 12/30/2023 3:35 PM CDT Pulse 69 12/30/2023 3:35 PM CDT Temperature 36.8 C (98.2 F) 01/27/2023 3:09 PM [employer] Respiratory Rate 16 07/31/2022 3:18 PM CDT Oxygen Saturation 94% 12/30/2023 3:35 PM CDT Inhaled Oxygen Concentration - - Weight 94.1 kg (207 lb 8 oz) 12/30/2023 3:35 PM CDT Height 163 cm (5' 4.17) 06/12/2022 2:26 PM CDT Body Mass Index 35.43 06/12/2022 2:26 PM CDT Plan of Treatment Health Maintenance Due Date Last Done Comments Zoster (shingles) series for age 50+ (1 of 2) 2007 RSV vaccine for adults or (1 - Risk 60-74 years 1-dose series) 2017 DEXA/DXA scan for age 65+ 2022 BMI (ht and wt on same day) for age 18+ 06/13/2023 06/12/2022, 08/08/2021, 09/04/2020, Additional history exists Medicare Wellness for age 65+ 06/13/2023, 10/11/2015, 10/07/2014, Additional history exists COVID-19 vaccine series ( season) 2023 01/19/2021, 05/04/2020, 04/06/2020 Mammogram for age 45-75 04/30/2024 04/30/19 24, 11/13/2021, 10/19/2020, Additional history exists Depression screening for age 12+ 12/24/2024 12/25/2023, 12/22/2023, 10/31/2023, Additional history exists Fecal testing sDNA-FIT ([place] guard) for age 45-75 12/11/2025 12/11/2022 Lipids for age 45-75 04/23/2028 04/23/2023, 05/22/2022, 06/16/2019, Additional history exists Tetanus booster 03/05/2032 03/05/2022, 12/24, 05/24/2009, Additional history exists Hepatitis C screening for ag e 18-79 Completed 10/07/2014 Pneumococcal series for age 50+ Completed 03/05/2022, 04/05/2015, 01/25/2008 Tdap Completed 03/05/2022, 01/22/2012 Influenza for age 65+ Completed 12/22/2023 , 01/03/2023, 12/12/2021, Additional history exists Goals Goal Patient Goal Type Associated Problems Recent Progress Patient-Stated? Author BLOOD PRESSURE-SUSIE DUCKWORTH BP LESS THAN 130/80 Blood Pressure No Detert, Kandace Donovan, DO Follow up with providers by 06/21/17 [...] [employer] SE[employer]ER Visit for screening mammogram LIPID PANEL W REFLEX MEASURED LDL Routine 04/23/2023 1:00 PM [employer] Controlled type 2 diabetes mellitus without complication, without long-term current use of insulin (HC) SDNA-FIT EXTERNAL (COLOGUARD) Routine 12/11/2022 2:15 PM CDT Screening for colon cancer ANTI HCV Routine 10/07/2014 4:00 PM CDT Need for hepatitis C screening test from Last 3 Months or Most Recently Relevant to Health Maintenance Results * XR MAMMO CRYSTAL BILAT SCREEN (04/30/2023 12:30 PM [employer]) Anatomical Region Laterality Modality BREASTS, Breast Left, Breast Right Bilateral Mammography Impressions 04/30/2023 2:22 PM [employer] There is no radiographic evidence for malignancy. Recommend annual mammograms. MAMMOGRAM ASSESSMENT: ACR 1 Negative PATIENTS: You will also receive a letter with your examination results in an easy to read format. If you have questions about your results, please [...] care provider. XR MAMMO CRYSTAL BILAT SCREEN [[id number]] CLINICAL HISTORY: This is an asymptomatic 68 y.o. patient. INDICATION FOR EXAM: Mammogram Screening. TECHNIQUE: CC & MLO views were obtained. This study was evaluated with the assistance of Computer-Aided Detection. Breast Tomosynthesis was used in interpretation. COMPARISON FILM: [facility] [facility] [employer] FINDINGS: The breasts have scattered areas of fibroglandular density. There are no dominant masses, suspicious micro calcifications or areas of architectural distortion. us Kandace Mckeon DO MAMMO Final Resul t * LIPID PANEL W REFLEX MEASURED LDL (04/23/2023 1:00 PM [employer]) CHOLESTEROL,TOTAL 193 100 - 199 mg/dL 04/24/2023 10:01 AM [facility] Comment: Cholesterol, Total Reference Ranges Desirable <200 mg/dL Borderline 200-239 mg/dL High >=240 mg/dL TRIGLYCERIDES 144 <150 mg/dL 04/24/2023 10:01 AM [facility] HDL CHOLESTEROL 52 >40 mg/dL 10:01 AM [facility] NON-HDL CHOLESTEROL 141 <145 mg/dl 04/24/2023 10:01 AM [facility] CHOL/HDL RATIO 3.71 <4.50 04/24/2023 10:01 AM [facility] LDL CHOLESTEROL 112 <=130 mg/dL 04/24/2023 10:01 AM [facility] VLDL CHOLESTEROL 29 <=30 mg/dL 04/24/2023 10:01 AM [facility] PROVIDER ORDERED STATUS RANDOM 04/24/2023 10:01 AM [facility] Blood BLOOD SPECIMEN / Unknown Venipuncture / Unknown 04/23/2023 1:00 PM [employer] 04/23/2023 1:01 PM [employer] us Kandace Wardt DO CHEMISTRY Final Resul t [facility] [address] [place] [address], * SDNA-FIT EXTERNAL (COLOGUARD) (12/11/2022 2:15 PM CDT) NONINV COLON CA DNA+OCC BLD SCRN STL-IMP Negative Negative 12/17/2022 9:02 PM CDT [employer] (CLIA #:[id number]) Comment: NEGATIVE TEST RESULT. A negative Cologuard result indicates a low likelihood that a colorectal cancer (CRC) or advanced adenoma (adenomatous polyps with more advanced pre-malignant features) is present. The chance that a person with a negative Cologuard test has a colorectal cancer is less than 1 in 1500 (negative predictive value >99.9%) or has an advanced adenoma is less than 5.3% (negative predictive value 94.7%). These data are based on a prospective cross-sectional study of 10,000 individuals at average risk for colorectal cancer who were screened with both Cologuard and colonoscopy. (Shahriar Lucas et al, N Engl J Med 2014;370(14):1703-3443) The normal value (reference range) for this assay is negative. COLOGUARD RE-SCREENING RECOMMENDATION: Periodic colorectal cancer screening is an important part of preventive healthcare for asymptomatic individuals at average risk for colorectal cancer. Following a negative Cologuard result, the [place] [employer] and U.S. Multi-Society Task Force screening guidelines recommend a Cologuard re-screening interval of 3 years. References: [place] [employer] Guideline for Colorectal Cancer Screening: https://www.cancer.org/cancer/ovfsx-blkmol-ekbafq/codjynmmh-ljxjsgloz-nxanhmc/ac s-rec ommendations.html.; Harish DK, Gold CR, Skyler MirandaK, Colorectal Cancer Screening: Recommendations for Physicians and Patients from the U.S. Multi-Society Task Force on Colorectal Cancer Screening , Am J Gastroenterology 2017; 112:5372-9304. TEST DESCRIPTION: Composite algorithmic analysis of stool DNA-biomarkers with hemoglobin immunoassay. Quantitative values of individual biomarkers are not reportable and are not associated with individual biomarker result reference ranges. Cologuard is intended for colorectal cancer screening of adults of either sex, 45 years or older, who are at average-risk for colorectal cancer (CRC). Cologuard has been approved for use by the U.S. FDA. The performance of Cologuard was established in a cross sectional study of average-risk adults aged 50-84. Cologuard performance in patients ages 45 to 49 years was estimated by sub-group analysis of near-age groups. Colonoscopies performed for a positive result may find as the most clinically significant lesion: colorectal cancer [4.0%], advanced adenoma (including sessile serrated polyps greater than or equal to 1cm diameter) [20%] or non- advanced adenoma [31%]; or no colorectal neoplasia [45%]. These estimates are derived from a prospective cross-sectional screening study of 10,000 individuals at average risk for colorectal cancer who were screened with both Cologuard and colonoscopy. (Shahriar Day al, N Engl J Med 2014;370(14):2797-2333.) Cologuard may produce a false negative or false positive result (no colorectal cancer or precancerous polyp present at colonoscopy follow up). A negative Cologuard test result does not guarantee the absence of CRC or advanced adenoma (pre-cancer). The current Cologuard screening interval is every 3 years. ([place] [employer] and U.S. Multi-Society Task Force). Cologuard performance data in a 10,000 patient pivotal study using colonoscopy as the reference method can be accessed at the following location: [email or web address]. Additional description of the Cologuard test process, warnings and precautions can be found at [email or web address]. Stool specimen (specimen) (Rectum) 12/11/2022 2:15 PM CDT 12/13/2022 6:23 PM CDT us Kandace Wardt DO URINE Final Resul t [employer] (CLIA #:[id number]) [place] [address], * ANTI HCV [[id number]] (10/07/2014 4:00 PM CDT) HEPATITIS C ANTIBODY Non-Reacti ve Non-Reacti ve 10/08/2014 4:38 PM CDT [facility] Blood specimen (specimen) BLOOD SPECIMEN / Unknown Venipuncture / Unknown 10/07/2014 4:00 PM CDT 10/07/2014 4:00 PM CDT Narrative [facility] - 10/08/2014 4:38 PM CDT Antibodies to HCV not detected; does not exclude the possibility of exposure to HCV. us Kandace Mckeon DO SEND OUTS Final Resul t [facility] [address] [place] [address], [place] from Last 3 Months or Most Recently Relevant to Health Maintenance Insurance MEDICARE PART B HB ONLY [facility] MEDICARE PPS Care Teams Moving Picture Producer Relationship Specialty Start Date End Date Kandace Mckeon DO [address] [place] [address] PCP - General 12/25/09 Parish Ruffin MD Pulmonology Pulmonary Medicine 12/04/11 Kwaku Wild MD [address] [place] [id number] Physical Medicine and Rehabilitation 10/07/14 Kari Hunt, PhD, [address] [place] [address] Psychologist Psychology 12/10/16
[2024-03-30 22:06] VITALS: BP 147/68; PULSE 78; RESP 20; TEMP 37; O2SAT 94
--- NOTE | 2024-03-30 22:43 | ED_ITS ---
HPI - General Adult General Chief complaint: Sore Throat Stated complaint: COVID + chest pain, [place] pt. Time Seen by Provider: 03/30/24 22:34 History of Present Illness HPI narrative: This 69-year-old female is a resident at [facility] and has developed upper respiratory symptoms including cough and sore throat. She tested positive for COVID prior to arrival here. She comes in here for evaluation. She arrives with normal vital signs. Related Data Home Medications ?Medication ?Instructions ?Recorded ?Confirmed acetaminophen 325 mg tablet 650 mg PO Q6H PRN pain 12/27/21 12/10/23 albuterol sulfate 90 mcg/actuation 2 puff inhalation Q4H PRN 12/27/21 12/10/23 aerosol inhaler (Ventolin HFA) amitriptyline 50 mg tablet 50 mg PO HS 12/27/21 12/10/23 amlodipine 10 mg tablet 10 mg PO HS 12/27/21 12/10/23 antacid See Rx Instructions PO DAILY PRN 12/27/21 12/10/23 budesonide 0.5 mg/2 mL suspension 0.5 mg inhalation BID 12/27/21 12/10/23 for nebulization diphenhydramine HCl 25 mg capsule 25 mg PO Q8H PRN allergic symptoms 12/27/21 12/10/23 (Banophen) glipizide 5 mg tablet 5 mg PO DAILY 12/27/21 12/10/23 hydroxyzine HCl 25 mg tablet 25 mg PO HS PRN anxiety 12/27/21 12/10/23 levothyroxine 25 mcg tablet 25 mcg PO DAILY 12/27/21 12/10/23 metoprolol succinate 50 mg 50 mg PO DAILY 12/27/21 12/10/23 tablet,extended release 24 hr nitroglycerin 0.4 mg sublingual 0.4 mg sublingual Q5M PRN 12/27/21 12/10/23 tablet rizatriptan 5 mg tablet 5 mg PO DAILY PRN 12/27/21 12/10/23 simvastatin 20 mg tablet 20 mg PO HS 12/27/21 12/10/23 naproxen sodium 220 mg tablet (All 220 mg PO .once weekly PRN 01/08/22 12/10/23 Day Pain Relief) calcium carbonate 200 mg PO PRN 04/29/22 12/10/23 aspirin 325 mg tablet,delayed 325 mg PO DAILY 01/15/23 12/10/23 release escitalopram oxalate 5 mg tablet 5 mg PO DAILY 01/15/23 12/10/23 escitalopram oxalate 10 mg tablet 10 mg PO DAILY 05/12/23 12/10/23 lactulose 10 gram/15 mL oral ml PO 12/10/23 12/10/23 solution Previous Rx's ?Medication ?Instructions ?Recorded omeprazole 40 mg capsule,delayed 40 mg PO DAILY #14 caps 01/08/22 release Allergies Allergy/AdvReac Type Severity Reaction Status Date / Time duloxetine AdvReac Mild sleep Verified 03/30/24 22:14 disturbance and fatigue Review of Systems Status of ROS: Reports: 10 or more systems reviewed and unremarkable except as noted in History and below Narrative: Constitutional: No fevers, no weight gain or loss. Eyes: No discharge. No vision changes. HENT: No congestion, no ear pain. Sore throat. Cardiovascular: No chest pain, no palpitations. Respiratory: No shortness of breath, no wheezes. Nonproductive cough. Gastrointestinal: No abdominal pain, no vomiting, no diarrhea. Genitourinary: No dysuria, no hematuria. Musculoskeletal: Normal range of motion. Skin: No rashes, no pruritis. Neurological: No dizziness, weakness, sensory change, speech change. Endo/Heme/Allergies: No bruising or bleeding. No polydipsia. Pysch: no suicidality, no anxiety, no insomnia. All other systems reviewed and are negative. 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 - Dependent personality disorder (ICD-10) Hypertensive heart disease with heart failure ?I11.0 - Hypertensive heart disease with heart failure (ICD-10) Clear cell carcinoma of left kidney ?C64.2 - Malignant neoplasm of left kidney, except renal pelvis (ICD-10) Diabetes mellitus with hyperglycemia, without long-term current use of insulin ?E11.65 - Type 2 diabetes mellitus with hyperglycemia (ICD-10) Chronic constipation ?K59.09 - Other constipation (ICD-10) CHAPITO (obstructive sleep apnea) ?G47.33 - Obstructive sleep apnea (adult) (pediatric) (ICD-10) Mild persistent asthma ?J45.30 - Mild persistent asthma, uncomplicated (ICD-10) Migraine ?G43.909 - Migraine, unspecified, not intractable, without status migrainosus (ICD-10) Hypertension ?I10 - Essential (primary) hypertension (ICD-10) Hiatal hernia ?K44.9 - Diaphragmatic hernia without obstruction or gangrene (ICD-10) GERD (gastroesophageal reflux disease) ?K21.9 - Gastro-esophageal reflux disease without esophagitis (ICD-10) Fibromyalgia ?M79.7 - Fibromyalgia (ICD-10) Depression ?F32.A - Depression, unspecified (ICD-10) Chronic fatigue syndrome ?G93.32 - Myalgic encephalomyelitis/chronic fatigue syndrome (ICD-10) Surgical History H/O: hysterectomy ?Z90.710 - Acquired absence of both cervix and uterus (ICD-10) History of cholecystectomy ?Z90.49 - Acquired absence of other specified parts of digestive tract (ICD- 10) H/O section ?Z98.891 - History of uterine scar from previous surgery (ICD-10) S/P appendectomy ?Z90.49 - Acquired absence of other specified parts of digestive tract (ICD- 10) Social History Smoking Status: Never smoker Do you use any of these nicotine containing products: None Second hand tobacco smoke exposure: No How often do you have a drink containing alcohol: never How often do you have six or more drinks on one occasion: Never AUDIT-C Alcohol total score: 0 Non-prescribed substance use: denies use service: No Exam Narrative: Exam Narrative: Constitutional: Well-developed, well-nourished, no acute distress. HEENT: Normocephalic, atraumatic. Neck: Normal range of motion. Nontender. Supple. Heart: Regular. No murmurs. Normal rate. Intact distal pulses. Lungs: Clear to auscultation. No chest discomfort. No wheezes, rhonchi, or rales. Abdomen: Normal bowel sounds. Nontender. No rebound tenderness. Genitalia: Deferred. Back: No midline tenderness. Normal range of motion. Extremities: Normal range of motion. No injury. Skin: Intact. No rash. Warm. No erythema or pallor. Neurologic: No altered sensation. No weakness. Alert and oriented. Psychiatric: No suicidality. No anxiety or depression. No insomnia. Nursing notes and vitals signs are reviewed. Const: Vital Signs, click to edit/add: Vital Signs - 24 hr 03/30/24 22:06 Temperature 98.6 F Pulse Rate [Pulse Oximeter] 78 Respiratory Rate 20 Blood Pressure [Ri ght Upper Arm] 147/68 H Pulse Oximetry 94 Oxygen Delivery Me thod Room Air Course Vital Signs Vital signs: Initial Vital Signs Temperature 98.6 F 03/30/24 22:06 Temperature Source Temporal Artery Scan 03/30/24 22:06 Pulse Rate 78 03/30/24 22:06 Pulse Rhythm Regular 03/30/24 22:06 Respiratory Rate 20 03/30/24 22:06 Blood Pressure 147/68 H 03/30/24 22:06 Blood Pressure Mean 94 03/30/24 22:06 Blood Pressure Position Sitting 03/30/24 22:06 Pulse Oximetry 94 03/30/24 22:06 Oxygen Delivery Method Room Air 03/30/24 22:06 Vital Signs Temperature 98.6 F 03/30/24 22:06 Pulse Rate 78 03/30/24 22:06 Respiratory Rate 20 03/30/24 22:06 Blood Pressure 147/68 H 03/30/24 22:06 Pulse Oximetry 94 03/30/24 22:06 Oxygen Delivery Method Room Air 03/30/24 22:06 Temperature 98.6 F 03/30/24 22:06 Pulse Rate 78 03/30/24 22:06 Respiratory Rate 20 03/30/24 22:06 Blood Pressure 147/68 H 03/30/24 22:06 Pulse Oximetry 94 03/30/24 22:06 Oxygen Delivery Method Room Air 03/30/24 22:06 Medical Decision Making MDM Narrative Medical decision making narrative: This patient comes in with symptoms due to COVID. She tested positive for COVID prior to arrival here. She arrives here with normal vital signs and her exam also is actually reassuring. An EKG shows normal sinus rhythm with no ST or T- wave abnormalities. The patient did receive an oral dose of dexamethasone 10 mg. She is okay to be discharged home and instructed to return if becoming short of breath or other serious symptoms evolve. ECG Data Attestation: I personally reviewed and interpreted this ECG as follows: Interpretation: Normal sinus rhythm. Rate is 75 beats per minute. There are no ST or T-wave abnormalities. Discharge Plan Discharge Clinical Impression: COVID-19 Patient Disposition: Home, Self-Care Condition: Stable Additional Instructions: Use [id number] medicines as needed and directed. Follow up with MD or return if becoming short of breath. Prescriptions: No Action lactulose 10 gram/15 mL solution PO acetaminophen 325 mg tablet 650 mg PO Q6H PRN (Reason: pain) amitriptyline 50 mg tablet 50 mg PO HS amlodipine 10 mg tablet 10 mg PO HS budesonide 0.5 mg/2 mL suspension for nebulization 0.5 mg inhalation BID glipizide 5 mg tablet 5 mg PO DAILY levothyroxine 25 mcg tablet 25 mcg PO DAILY metoprolol succinate 50 mg tablet extended release 24 hr 50 mg PO DAILY simvastatin 20 mg tablet 20 mg PO HS antacid suspension See Rx Instructions PO DAILY PRN Rx Instructions: 15-30ml orally daily PRN; rizatriptan 5 mg tablet 5 mg PO DAILY PRN Rx Instructions: may repeat once after 2 hours albuterol sulfate [Ventolin HFA] 90 mcg/actuation HFA aerosol inhaler 2 puff INHALATION Q4H PRN diphenhydramine HCl [Banophen] 25 mg capsule 25 mg PO Q8H PRN (Reason: allergic symptoms) Rx Instructions: 1-2 caps prn hydroxyzine HCl 25 mg tablet 25 mg PO HS PRN (Reason: anxiety) nitroglycerin 0.4 mg tablet, sublingual 0.4 mg sublingual Q5M PRN Rx Instructions: max 3 tabs within 15 minutes naproxen sodium [All Day Pain Relief] 220 mg tablet 220 mg PO .once weekly PRN omeprazole 40 mg capsule,delayed release(DR/EC) 40 mg PO DAILY Qty: 14 0RF aspirin 325 mg tablet,delayed release (DR/EC) 325 mg PO DAILY escitalopram oxalate 5 mg tablet 5 mg PO DAILY escitalopram oxalate 10 mg tablet 10 mg PO DAILY calcium carbonate 200 mg calcium (500 mg) tablet,chewable 200 mg PO PRN Rx Instructions: Chew 215 mg of calcium daily as needed for indigestion or heartburn. Follow Up/Referrals: Kandace Mckeon DO [Primary Care Provider] - Stand Alone Forms: [employer] Info Instructions
[2024-03-30] MEDS: dexAMETHasone 10 MG/ML inj PO (22:53)
--- OUTSIDE RECORDS SUMMARY | 2024-03-30 22:59 | XMS_ITS | Continuity of Care Document ---
Author Name NwRUBYN User [place]-a llod Address Unknown Organization Unknown Address Unknown Procedures FILTER APPLIED:Only known Procedures with Onset Date within the last 5 years Procedure Date Procedure Provider Additiona l Information Status X-RAY EXAM HIP UNI 2-3 VIEWS (31679) Completed EMERGENCY DEPT VISIT LOW MDM (30865) Completed METABOLIC PANEL TOTAL CA (62565) Completed EMERGENCY DEPT VISIT MOD MDM (48571) Completed PROTHROMBIN TIME (93944) Completed FIBRIN DEGRADATION QUANT (29652) Completed ROUTINE VENIPUNCTURE (41580) Completed X-RAY EXAM CHEST 2 VIEWS (85983) Completed ASSAY OF TROPONIN QUANT (34129) Completed COMPLETE CBC W/AUTO DIFF WBC (18005) Completed MANUAL THERAPY 1/> REGIONS (32733) Completed THERAPEUTIC EXERCISES (17909) Completed GAIT TRAINING THERAPY (01376) Completed PT EVAL MOD COMPLEX 30 MIN (87041) Completed Encounters FILTER APPLIED:Only known Encounters with Admission Date within the last 5 years Encounter Location Admission Discharge Billing Code Business 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
--- OUTSIDE RECORDS SUMMARY | 2024-03-30 22:59 | XMS_ITS | Clinical Summary ---
Author Organization [facility] Address [place], [place] [address] Care Team Providers Care Posting Machine Operator Name Role Phone Kandace Mckeon DO Primary Care Provider Parish Ruffin MD Unavailable Unavailable Kwaku Wild MD Unavailable [phone] Kari Hutn PhD, LP Unavailable [phone] Allergies Active Allergy Reactions Criticality Noted Date [...] Type Department Care Team Description 03/30/2024 Refill [facility] [address] [place] [address] Kandace Mckeon, Refill Request (Budesonide) 03/02/[address] [address] Kandace Mckeon, Refill Request (Glipizide, Amlodipine) 02/25/[address] [address] Kandace Mckeon, DO Refill Request (Icy Hot) 02/06/2024 Refill [facility] [address] [place] [address] Kandace Mckeon, Refill Request (Rizatriptan tab 2mg) 02/04/[address] [address] Kandace Mckeon, Refill Request (Amitriptyline, Metoprolol Succinate) 02/03/[address] [address] Kandace Mckeon, Refill Request (RIZATRIPTAN TAB 5MG) 01/11/2024 [address] [place] [address] Kandace Mckeon, DO Refill Request (Antifungal (Clotrimazole)) 01/06/2024 Refill [facility] [address] [facility] [place] [address] Kandace Mckeon DO Refill Request (Amlodipine) 12/30/2023 3:40 PM CDT Office Visit [facility] [place] [facility] [address] [facility] [place] [address] Dimitri Rivas MD Follow Up (MRI) 12/30/2023 Travel from Last 3 Months Immunizations Name Administration Dates Next Due AMB Influenza, IIV4 PF (=>6 mos Flulaval,Fluzone Fluarix)(Flu Clinic Only) 12/23/2019 COVID-19 vaccine (Moderna 100mcg/0.5mL) PF, MDV 05/04/2020,04/06/2020 COVID-19 vaccine ([employer]-Bio NTech 30mcg/0.3mL) PF, MDV 01/19/2021 Influenza RIV4 [...] = 0.6 oz pur e alcohol) occassional [facility] Utilities Answer Date Recorded Do you [...] on file Legal Sex Female 5:26 AM EDITOR DICTIONARY Gender Identity Not on file Sexual Orientation Not on file Obstetrics History Last Filed Vital Signs Vital Sign Reading Time Taken Comments Blood Pressure 132/80 12/30/2023 3:35 PM CDT Pulse 69 12/30/2023 3:35 PM CDT Temperature 36.8 C (98.2 F) 01/27/2023 3:09 PM EDITOR DICTIONARY Respiratory Rate 16 07/31/2022 3:18 PM CDT [...] 10/31/2023, Additional history exists Fecal testing sDNA-FIT (Hull guard) for age 45-75 12/11/2025 12/11/2022 Lipids [...] CRYSTAL BILAT SCREEN Routine 04/30/2023 12:30 PM EDITOR DICTIONARY Visit for screening mammogram LIPID PANEL W REFLEX MEASURED LDL Routine 04/23/2023 1:00 PM EDITOR DICTIONARY Controlled type 2 diabetes mellitus without complication, without long-term current use of insulin (HC) SDNA-FIT EXTERNAL (COLOGUARD) Routine 12/11/2022 2:15 PM CDT Screening for colon cancer ANTI HCV Routine 10/07/2014 4:00 PM CDT Need for hepatitis C screening test from Last 3 Months or Most Recently Relevant to Health Maintenance Results * XR MAMMO CRYSTAL BILAT SCREEN (04/30/2023 12:30 PM EDITOR DICTIONARY) Anatomical Region Laterality Modality BREASTS, Breast Left, Breast Right Bilateral Mammography Impressions 04/30/2023 2:22 PM EDITOR DICTIONARY There is no radiographic evidence for malignancy. Recommend annual mammograms. MAMMOGRAM ASSESSMENT: ACR 1 Negative PATIENTS: You will also receive a letter with your examination results in an easy to read format. If you have questions about your results, please contact your referring provider. Narrative 04/30/2023 2:22 PM EDITOR DICTIONARY For Patients: As a result of the Cures Act, medical imaging exams and procedure reports are released immediately into your electronic medical record. You may view this report before your referring provider. If you have questions, please contact your health care provider. XR MAMMO CRYSTAL BILAT SCREEN [027176] CLINICAL HISTORY: This is an asymptomatic 68 y.o. patient. INDICATION FOR EXAM: Mammogram Screening. TECHNIQUE: CC & MLO views were obtained. This study was evaluated with the assistance of Computer-Aided Detection. Breast Tomosynthesis was used in interpretation. COMPAR[facility] FILM[facility] [employer] FINDINGS: The breasts have scattered areas of fibroglandular density. There are no dominant masses, suspicious micro calcifications or areas of architectural distortion. us Kandace Mckeon DO MAMMO Final Resul t * LIPID PANEL W REFLEX MEASURED LDL (04/23/2023 1:00 PM EDITOR DICTIONARY) CHOLESTEROL,TOTAL 193 100 - 199 mg/dL 04/24/2023 10:01 AM [facility] Comment: Cholesterol, Total Reference Ranges Desirable <200 mg/dL Borderline 200-239 mg/dL High >=240 mg/dL TRIGLYCERIDES 144 <150 mg/dL 04/24/2023 10:01 AM [facility] HDL CHOLESTEROL 52 >40 mg/dL 10:01 AM [facility] NON-HDL CHOLESTEROL 141 <145 mg/dl 04/24/2023 10:01 AM [facility] CHOL/HDL RATIO 3.71 <4.50 04/24/2023 10:01 AM [facility] LDL CHOLESTEROL 112 <=130 mg/dL 04/24/2023 10:01 AM [facility] VLDL CHOLESTEROL 29 <=30 mg/dL 04/24/2023 10:01 AM [facility] PROVIDER ORDERED STATUS RANDOM 04/24/2023 10:01 AM [facility] Blood BLOOD SPECIMEN / Unknown Venipuncture / Unknown 04/23/2023 1:00 PM EDITOR DICTIONARY 04/23/2023 1:01 PM EDITOR DICTIONARY us Kandace Wardt DO CHEMISTRY Final Resul t [facility] [address] [place] [address], * SDNA-FIT EXTERNAL (COLOGUARD) (12/11/2022 2:15 PM CDT) NONINV COLON CA DNA+OCC BLD SCRN STL-IMP Negative Negative 12/17/2022 9:02 PM CDT [employer] (CLIA #:[id number]) Comment: NEGATIVE TEST RESULT. A negative Cologuard [...] Lucas et al, N Engl J Med 2014;370(14):1196-6174) The normal value (reference range) for this assay is negative. COLOGUARD RE-SCREENING RECOMMENDATION: Periodic colorectal cancer screening is an important part of preventive healthcare for asymptomatic individuals at average risk for colorectal cancer. Following a negative Cologuard result, the [place] Cancer Society and U.S. Multi-Society Task Force screening guidelines recommend a Cologuard re-screening interval of 3 years. References: [place] [employer] Guideline for Colorectal Cancer Screening: https://www.cancer.org/cancer/pmlei-bawfhk-adlwre/zlvjnbifq-rbqtshqwg-jrtevzx/ac s-rec ommendations.html.; Harish DK, Gold CR, Skyler MirandaK, Colorectal Cancer Screening: Recommendations for Physicians and Patients from the U.S. Multi-Society Task Force on Colorectal Cancer Screening , Am J Gastroenterology 2017; 112:6195-6061. TEST DESCRIPTION: Composite algorithmic analysis of stool [...] (Shahriar Day al, N Engl J Med 2014;370(14):0183-8675.) Cologuard may produce a false negative or false positive result (no colorectal cancer or precancerous polyp present at colonoscopy follow up). A negative Cologuard test result does not guarantee the absence of CRC or advanced adenoma (pre-cancer). The current Cologuard screening interval is every 3 years. ([place] [employer] and U.S. Multi-Society Task Force). Cologuard performance data in a 10,000 patient pivotal study using colonoscopy as the reference method can be accessed at the following location: www.[employer].Discoverables/results. Additional description of the Cologuard test process, warnings and precautions can be found at www.[employer].com. Stool specimen (specimen) (Rectum) 12/11/2022 2:15 PM CDT 12/13/2022 6:23 PM CDT us Kandace Wardt DO URINE Final Resul t [employer] (CLIA #:[id number]) [address] [address], * ANTI HCV [64195.2] (10/07/2014 4:00 PM CDT) HEPATITIS C ANTIBODY Non-Reacti ve Non-Reacti ve 10/08/2014 4:38 PM CDT [facility] Blood specimen (specimen) BLOOD SPECIMEN / Unknown Venipuncture / Unknown 10/07/2014 4:00 PM CDT 10/07/2014 4:00 PM CDT Narrative [facility] - 10/08/2014 4:38 PM CDT Antibodies to HCV not detected; does not exclude the possibility of exposure to HCV. us Kandace Mckeon DO SEND OUTS Final Resul t [facility] [address] [place] [address], [place] from Last 3 Months or Most Recently Relevant to Health Maintenance Insurance MEDICARE PART B HB ONLY [facility] MEDICARE PPS Care Teams Posting Machine Operator Relationship Specialty Start Date End Date Kandace Mckeon DO [address] [place] [address] PCP - General 12/25/09 Parish Ruffin MD Pulmonology Pulmonary Medicine 12/04/11 Kwaku Wild MD [address] [place] [id number] Physical Medicine and Rehabilitation 10/07/14 Kari Hunt, PhD, [address] [place] [address] Psychologist Psychology 12/10/16
== END 2024-03-30 23:19 | disposition home or self-care (01) ==
LOC: ED 22:56
PROVIDERS: Emergency Provider Emergency Medicine Emergency Medical Services; PCP Family Medicine
DX: U07.1 COVID-19 (principal)
CPT/HCPCS: 93005; 99283; 99284; J1100

== ENCOUNTER 2024-09-12 10:28 | Outpatient (CLI) | payer OTHER, SELFPAY ==
--- OUTSIDE RECORDS SUMMARY | 2024-09-14 00:34 | XMS_ITS | Clinical Summary ---
Author Organization [employer] Address [address] [place] [address] Care Team Providers Care Cigar Machine Feeder Name Role Phone Kandace Mckeon DO Primary Care Provider Parish Ruffin MD Unavailable Unavailable Kwaku Wild MD Unavailable [phone] Kari Hunt PhD, LP Unavailable + [phone] Allergies Active Allergy Reactions Criticality Noted Date [...] Encounters Date Type Department Care Team Description 09/12/2024 Orders Only [facility] SERVICES Scanner 1 scan: (1-Ord) [facility], XR CHEST 2V, 09/12/2024 08/17/2024 Refill [facility] [address] [place] [facility] [address] Kandace Mckeon DO Refill Request (Glipizide, Levothyroxine, Omeprazole, Magnesium Oxide) 08/06/2024 Telephone [facility] [address] [place] [facility] [address] Kandace Mckeon DO 08/03/2024 3:00 PM CDT Ancillary Procedure [facility] [address] [place] [address] 08/03/2024 2:45 PM CDT Orders Only [facility] [address] [place] [address] Lab, [place] [facility] 08/03/2024 Travel 07/29/[address] [address] Kandace Mckeon DO Refill Request 07/22/[address] [address] Kandace Mckeon DO Abnormal Lab Results (elevated platelets valorie Cosme is Dr. Felix calling from [facility]) 07/21/2024 2:15 PM CDT Office Visit [address] [address] Kandace Mckeon DO Diabetes (sugars were low yesterday before dinner- 90's); Abdominal Pain (still having upset stomach after eating and after bowel movement) 07/21/2024 1:20 PM CDT Ancillary Procedure [address] [address] 07/21/2024 Travel 07/20/[address] [address] Kandace Mckeon DO Refill Request (Simvastatin, Amitriptyline, Metoprolol Succinate) 07/19/2024 1:00 PM CDT Ancillary Procedure [address] [address] 07/19/2024 Travel 06/28/[address] [address] Kandace Mckeon DO Refill Request; ANTIFUNGAL CREAM 06/22/[address] [place] [address] Kandace Mckeon, Refill Request (Levothyroxine, Glipizide) 06/21/2024 Refill [facility] [address] [place] [address] Kandace Mckeon, Refill Request (nebulizer) from Last 3 Months Immunizations Immunization Administration Dates Next Due AMB Influenza, IIV4 PF (=>6 mos Flulaval,Fluzone Fluarix)(Flu Clinic Only) 12/23/2019 COVID-19 vaccine (Moderna 100mcg/0.5mL) PF, MDV 05/04/2020,04/06/2020 COVID-19 vaccine (Aradigm-Bio NTech 30mcg/0.3mL) PF, MDV 01/19/2021 Influenza RIV4 [...] on file Legal Sex Female 5:26 AM LIBRARY CATALOGING 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 Gender Identity Not on file Sexual Orientation Not on file Obstetrics History Last Filed Vital Signs Vital Sign Reading Time Taken Comments Blood Pressure 133/82 07/21/2024 2:16 PM CDT Pulse 68 07/21/2024 2:16 PM CDT Temperature 36.8 C (98.2 F) 01/27/2023 3:09 PM LIBRARY CATALOGING TECHNICIAN Respiratory Rate 16 07/31/2022 3:18 PM CDT [...] Description 10/20/2024 1:25 PM CDT Office Visit [facility] [address] [place] [address] Kandace Mckeon DO [address] [place] [address] 10/22/2024 2:15 PM CDT Office Visit [facility] [address] [place] [address] Kandace Mckeon DO [address] [place] [address] 11/01/2024 11:30 AM CDT Office Visit [facility] [address] [place] [address] Cristy Dickinson, PhD, [address] [place] [address] 12/28/2024 2:45 PM CDT Ancillary Procedure [facility] [address] [place] [address] Health Maintenance Due Date Last Done Comments [...] Procedure Name Priority Date/Time Associated Diagnosis Comments SCAN-RADIOLOGY REPORT 09/12/2024 12:[address] ABDOMEN PELVIS W Routine 08/03/2024 3 [...] REFLEX MEASURED LDL Routine 04/16/2024 12:05 PM LIBRARY CATALOGING TECHNICIAN HTN (hypertension) Controlled type 2 diabetes mellitus without complication, without long-term current use of insulin (HC) SDNA-FIT EXTERNAL (COLOGUARD) Routine 12/11/2022 2:15 PM CDT Screening for colon cancer ANTI HCV Routine 10/07/2014 4:00 PM CDT Need for hepatitis C screening test from Last 3 Months or Most Recently Relevant to Health Maintenance Results * SCAN-RADIOLOGY REPORT (09/12/2024 12:00 AM CDT) Anatomical Region Laterality Modality Other us Scanner OTHER Final Result * CT ABDOMEN PELVIS W (08/03/2024 3:31 [...] CDT) FERRITIN 9(L) 16 - 288 ng/mL [facility] [facility] Blood BLOOD SPECIMEN / Unknown 08/03/2024 2:32 PM CDT 08/03/2024 2:32 PM CDT Kandace Mckeon DO CHEMISTRY Final Resul t Hactus [facility] [address] [place] [address], [place] [phone] [facility] [address] [place] [address] * POCT Creatinine (08/03/2024 2:31 PM CDT) POCT,CREATININ E, ISTAT 1.0 0.6 - 1.3 mg/dL [facility] Blood BLOOD SPECIMEN / Unknown 08/03/2024 2:31 PM CDT 08/03/2024 2:31 PM CDT Kandace Mckeon DO CHEMISTRY Final Resul t Performing Organization Address City/[facility]/ZIP Co de Phone Number [facility] [address] [place] [address], [facility] [address] [place] [address] * (ABNORMAL) CBC WITH AUTO DIFFERENTIAL (08/03/2024 2:30 PM CDT) WHITE BLOOD COUNT 8.6 4.5 - 11.0 thou/cu mm 08/03/2024 10:43 PM CDT [facility] RED BLOOD COUNT 4.37 4.00 - 5.20 mil/cu mm 08/03/2024 10:43 PM CDT [facility] HEMOGLOBIN 11.1(L) 12.0 - 16.0 g/dL 08/03/2024 10:43 PM CDT [facility] HEMATOCRIT 35.7 33.0 - 51.0 % 08/03/2024 10:43 PM CDT [facility] MCV 82 80 - 100 fL 08/03/2024 10:43 PM CDT [facility] MCH 25.4(L) 26.0 - 34.0 pg 08/03/2024 10:43 PM CDT [facility] MCHC 31.1(L) 32.0 - 36.0 g/dL 08/03/2024 10:43 PM CDT [facility] RDW 15.2 11.5 - 15.5 % 08/03/2024 10:43 PM CDT [facility] PLATELET COUNT 475(H) 140 - 440 thou/cu mm 08/03/2024 10:43 PM CDT [facility] MPV 10.6 6.5 - 11.0 fL 08/03/2024 10:43 PM CDT [facility] NRBC 0.0 % 08/03/2024 10:43 PM CDT [facility] ABS NRBC 0.0 thou /cu mm 08/03/2024 10:[facility] % NEUT 52.3 % 08/03/2024 10:43 PM CDT [facility] % LYMPH 31.3 % 08/03/2024 10:43 PM CDT [facility] % MONO 8.2 % 08/03/2024 10:43 PM CDT [facility] % EOS 6.2 % 08/03/2024 10:43 PM T [facility] % BASO 1.8 % 08/03/2024 10:43 PM T [facility] % IMMATURE GRAN (METAS,MYELOS,WV OS) 0.2 % 08/03/2024 10:43 PM CDT [facility] ABSOLUTE NEUTROPHILS 4.5 1.7 - 7.0 thou/cu mm 08/03/2024 10:43 PM CDT [facility] ABSOLUTE LYMPHOCYTES 2.7 0.9 - 2.9 thou/cu mm 08/03/2024 10:43 PM CDT [facility] ABSOLUTE MONOCYTES 0.7 <0.9 thou/cu mm 08/03/2024 10:43 PM CDT [facility] ABSOLUTE EOSINOPHILS 0.5(H) <0.5 thou/cu mm 08/03/2024 10:43 PM CDT [facility] ABSOLUTE BASOPHILS 0.2 <0.3 thou/cu mm 08/03/2024 10:43 PM CDT [facility] ABSOLUTE IMMATURE GRANULOCYTES(MET ,MYELOS,PROS) 0.0 <0.3 thou/cu mm 08/03/2024 10:43 PM CDT [facility] Blood BLOOD SPECIMEN / Unknown [facility] / Unknown 08/03/2024 2:30 PM CDT 08/03/2024 2:30 PM CDT Kandace Mckeon DO HEMATOLOGY Final Resul t [facility] [address] [place] [address], * PERIPHERAL BLD MORPHOLOGY [50037.2] (08/03/2024 2:30 PM CDT) Case Report Special Hematology Report Case: [id number] Authorizing Provider: Kandace Mckeon DO Collected: 08/03/2024 1430 Ordering Location: [facility] Received: 08/03/2024 1430 Clinic Pathologist: Dennis Carrero MD Specimen: Blood 08/04/2024 1:29 PM CDT [facility] Final Diagnosis PERIPHERAL BLOOD: 1. Mild thrombocytosis 2. Mild normocytic anemia consistent with iron deficiency anemia 3. Minimal absolute eosinophilia, non-specific 4. See comment 08/04/2024 1:29 PM CDT [facility] at 1329 CDT Comment [...] to assess thrombocytosis. 08/04/2024 1:29 PM CDT [facility] Clinical Information The patient is a 69-year-old female. Pertinent clinical information: Thrombocytosis. Per EPIC: Additional history includes hypertension, major neurocognitive disorder due to vascular disease, diabetes, kidney carcinoma, JOSE MANUEL. She is had a persistent thrombocytosis since 2016. 08/03/24 14:32 FERRITIN: 9 (L) 08/04/2024 1:29 PM CDT [facility]-C ENTRFL LABORATORY CBC and Differential HEMATOLOGY PARAMETERS Tested at: [facility]-C[facility]AL LAB[facility]ATORY RESULTS EXPECTED VALUES WBC: 8.6 4.5-98e3473/cumm RBC: 4.37 4.00-5.20 mil/cumm HGB: 11.1 12-16 gm/dl DECREASED HCT: 35.7 33-51% MCV: 82.0 80-100 fl NORMOCYTIC MCH: 25.4 26-34 pg DECREASED MCHC: 31.1 32-36 gm/dl HYPOCHROMIC RDW: 15.2 11.5-15.5% PLT: 475 140-105b7874/uL ELEVATED MPV: 10.6 6.5-11 fl Retic: 1.1 0.5-1.5% Differential Absolute (%) Expected (%) (x10*9/L) (x10*9/L) Neutrophils: 4.5 (52.3) 1.7-7.0 (42-72%) Lymphocytes: 2.7 (31.4) 0.9-2.9 (20-44%) Monocytes: 0.7 (8.1) <0.9 (0-11%) Eosinophils: 0.5 (5.8) <0.5 (0-2%) ELEVATED Basophils: 0.2 (2.3) <0.3 (<3.0%) 08/04/2024 1:29 PM CDT [facility]-C ENTRAL LABORATORY Microscopic Description The final diagnosis is based on microscopic examination of an appropriately stained blood smear. 08/04/2024 1:29 PM CDT [facility]-C EN[facility]AL LABORATORY Additional Information Interpreted at [facility], Central Laboratory - [address] [facility] [address] [address] 08/04/2024 1:29 PM CDT [facility]- ENTRAL LABORATORY Blood BLOOD SPECIMEN / Unknown [facility] [...] WITH MEAL, Disp: 90 Tablet, Rfl: 3 krqwxut-kcazlfltgoksu-bvfsaoag (EXCEDRIN EX STR) 250-250-65 mg, Take 1 [...] Kandace Mckeon DO HEMATOLOGY Final Resul t [facility] [address] [place] [address], [place] * RETICULOCYTES [07368.0] (08/03/2024 2:30 PM CDT) [facility] RETIC% 1.1 0.5 - 1.5 % 08/03/2024 10:43 PM CDT [facility] RETIC (ABSOLUTE) 0.05 0.03 - 0.08 mil/cu mm 08/03/2024 10:43 PM CDT [facility] Blood BLOOD SPECIMEN / Unknown [facility] / Unknown 08/03/2024 2:30 PM CDT 08/03/2024 2:30 PM CDT Kandace Donovan Detert DO HEMATOLOGY Final Resul t Performing Organization Address City/[facility]/ZIP Co de Phone Number [facility] [address] [place] [address], [place] * (ABNORMAL) POCT Hemoglobin A1C Monitoring (07/21/2024 1:40 PM CDT) [facility] POC HEMOGLOBIN A1C 7.5(H) <6.0 % OF TOTAL HGB [facility] Comment: Any point of care results exhibiting inconsistency with the patient's clinical status should be repeated using a different testing method. Blood BLOOD SPECIMEN / Unknown 07/21/2024 1:40 PM CDT 07/21/2024 1:40 PM CDT Kandace Venus Detert DO CHEMISTRY Final Resul t Performing Organization Address City/[facility]/ZIP Co de Phone Number [facility] [address] [place] [address], [place] [phone] [facility] [address] [place] [address] * (ABNORMAL) PLATELET COUNT (07/21/2024 1:39 PM CDT) [facility] PLATELET COUNT 600(H) 140 - 400 Thousand/u L [facility] Blood BLOOD SPECIMEN / Unknown 07/21/2024 1:39 PM CDT 07/21/2024 1:39 PM CDT Kandace Donovan Detert DO HEMATOLOGY Final Resul t Hactus [facility] [address] [facility] [place] [address], [facility] [address] [place] [address] * XR MAMMO CRYSTAL BILAT SCREEN (07/21/2024 [...] care provider. XR MAMMO CRYSTAL BILAT SCREEN [[id number]] CLINICAL HISTORY: This is an asymptomatic 69 y.o. patient. INDICATION FOR EXAM: Mammogram Screening. TECHNIQUE: CC and MLO views were obtained. This study was evaluated with the assistance of Computer-Aided Detection. Breast Tomosynthesis was used in interpretation. COMPARISON FILM: Yes 04/30/23 [facility] 11/13/21 [facility] FINDINGS: There are scattered areas of fibroglandular density. There are no dominant masses, suspicious micro calcifications or areas of architectural distortion. Kandace Donovan Detert DO MAMMO Final Resul t * (ABNORMAL) [...] recommended in 3-5 years. Christina Flores PA-C [facility] 07/23/2024 Narrative 07/23/2024 4:36 PM CDT For Patients: Results are automatically released to your [facility] ([employer]) account once available, in compliance with federal regulations. This means that you may see your results before your provider has had a chance to review them. Please allow 2-3 business days for your provider to comment on the results. XR DXA Bone Mineral Density (BMD) EXAM LOCATION: [address] [address] PATIENT NAME: Juni Metcalf DATE OF : [...] two scanners are made by the same container washer. PROCEDURE: Dual-energy x-ray absorptiometry performed with routine [...] W REFLEX MEASURED LDL (04/16/2024 12:05 PM LIBRARY CATALOGING TECHNICIAN) [facility] CHOLESTEROL, TOTAL 202(H) <200 mg/dL [facility] HDL CHOLESTEROL 56 > OR = 50 mg/dL [facility] TRIGLYCERIDES 137 <150 mg/dL [facility] LDL-CHOLESTEROL 121(H) mg/dL (calc) [facility] Comment: Reference range: <100 Desirable range <100 mg/dL for primary prevention; <70 mg/dL for patients with CHD or diabetic patients with > or = 2 CHD risk factors. LDL-C is now calculated using the Bertha calculation, which is a validated novel method providing better accuracy than the Friedewald equation in the estimation of LDL-C. Jonathan MONROY et al. MORIAMA. 2013;310(19): 8902-0063 (http://education.AdexLink.Lionsharp Voiceboard/faq/UBA136) CHOL/HDLC RATIO 3.6 <5.0 (calc) [facility] NON HDL CHOLESTEROL 146(H) <130 mg/dL (calc) [facility] Comment: For patients with diabetes plus 1 major ASCVD risk factor, treating to a non-HDL-C goal of <100 mg/dL (LDL-C of <70 mg/dL) is considered a therapeutic option. Blood BLOOD SPECIMEN / Unknown 04/16/2024 12:05 PM LIBRARY CATALOGING TECHNICIAN 04/16/2024 12:06 PM LIBRARY CATALOGING TECHNICIAN Kandace Wardt DO CHEMISTRY Final Resul t [facility] [address] [place] [address], [facility] [address] [place] [address] * SDNA-FIT EXTERNAL (COLOGUARD) (12/11/2022 2:15 PM CDT) NONINV COLON CA DNA+OCC BLD SCRN STL-IMP Negative Negative 12/17/2022 9:02 PM CDT [facility] (CLIA #:[id number]) Comment: NEGATIVE TEST RESULT. A negative Cologuard [...] (Shahriar Day al, N Engl J Med 2014;370(14):1914-7576) The normal value (reference range) for this assay is negative. COLOGUARD RE-SCREENING RECOMMENDATION: Periodic colorectal cancer screening is an important part of preventive healthcare for asymptomatic individuals at average risk for colorectal cancer. Following a negative Cologuard result, the [place] [employer] Society and U.S. Multi-Society Task Force screening guidelines recommend a Cologuard re-screening interval of 3 years. References: [place] [employer] Guideline for Colorectal Cancer Screening: https://www.cancer.org/cancer/fjzma-ubsetb-eavwgj/tffpkrgjn-zlljkorlz-ybvqvoz/ac s-rec ommendations.html.; Harish DK, oGld CR, Skyler MirandaK, Colorectal Cancer Screening: Recommendations for Physicians and Patients from the U.S. Multi-Society Task Force on Colorectal Cancer Screening , Am J Gastroenterology 2017; 112:2763-5331. TEST DESCRIPTION: Composite algorithmic analysis of stool [...] (Shahriar Day al, N Engl J Med 2014;370(14):7511-6961.) Cologuard may produce a false negative or false positive result (no colorectal cancer or precancerous polyp present at colonoscopy follow up). A negative Cologuard test result does not guarantee the absence of CRC or advanced adenoma (pre-cancer). The current Cologuard screening interval is every 3 years. ([place] [employer] Society and U.S. Multi-Society Task Force). Cologuard performance data in a 10,000 patient pivotal study using colonoscopy as the reference method can be accessed at the following location: www.AbbeyPost.Lionsharp Voiceboard/results. Additional description of the Cologuard test process, warnings and precautions can be found at www.cologuard.com. Stool specimen (specimen) (Rectum) 12/11/2022 2:15 PM CDT 12/13/2022 6:23 PM CDT Kandace Donovan Detert DO URINE Final Resul t [facility] (CLIA #:[id number]) [place] [address], * ANTI HCV [[id number]] (10/07/2014 4:00 PM CDT) HEPATITIS C ANTIBODY Non-Reacti ve Non-Reacti ve 10/08/2014 4:38 PM CDT [facility] Blood specimen (specimen) BLOOD SPECIMEN / Unknown Venipuncture / Unknown 10/07/2014 4:00 PM CDT 10/07/2014 4:00 PM CDT Narrative [facility] - 10/08/2014 4:38 PM CDT Antibodies to HCV not detected; does not exclude the possibility of exposure to HCV. Kandace Wardt DO SEND OUTS Final Resul t [facility] too.me [facility] [address] [place] [address], [place] from Last 3 Months or Most Recently Relevant to Health Maintenance Insurance [facility]IC[facility] Care Teams Cigar Machine Feeder Relationship Specialty Start Date End Date Kandace Mckeon DO [address] [place] [address] PCP - General 12/25/09 Parish Ruffin MD Pulmonology Pulmonary Medicine 12/04/11 Kwaku Wild MD [address] [place] [address] Physical Medicine and Rehabilitation 10/07/14 Kari Hunt, PhD, LP [address] [place] [address] Psychologist Psychology 12/10/16
--- OUTSIDE RECORDS SUMMARY | 2024-09-14 01:33 | XMS_ITS | CCD ---
Author Organization Unknown Care Team Providers Care Fire Operations Forester Name Role Phone Engagement Lead, [place] Primary Care Provider Unava ilable Unavailable Chronic Care Management Unavaila ble Summary Purpose DataExchange Insurance Providers Payer name Policy type / Coverage type Covered constitution party ID Effective Begin Date Effective End Date Medicare [place] Part B [id number] Unknown Unknown [employer] Medicare Part B [id number] Unknown Unknown Family History Family History data not found Medication Administered No Medication Administered data Reason For Visit No Reason For Visit data
--- OUTSIDE RECORDS SUMMARY | 2024-09-14 01:33 | XMS_ITS | CCD ---
Author Organization Unknown Care Team Providers Care Hospital Cook Name Role Phone Medical File Clerk, [place] Primary Care Provider Unava ilable Unavailable Chronic Care Management Unavaila ble Summary Purpose DataExchange Insurance Providers Payer name Policy type / Coverage type Covered democrat ID Effective Begin Date Effective End Date [place] Part B [id number] Unknown Unknown [employer] Medicare Part B [id number] Unknown Unknown Family History Family History data not found Medication Administered No Medication Administered data Reason For Visit No Reason For Visit data
== END 2024-09-12 10:29 | disposition home or self-care (01) ==
LOC: AMB 09-13 12:32
PROVIDERS: PCP Family Medicine; Visit Provider Family Medicine
DX: R07.89 Other chest pain (principal)
CPT/HCPCS: A0425; A0427

== ENCOUNTER 2024-09-12 11:17 | Emergency (ER) | payer OTHER, SELFPAY ==
[2024-09-12] VITALS (13 sets, daily range): BP systolic 130–151; BP diastolic 70–78; PULSE 59–73; RESP 9–22; TEMP 36.7; O2SAT 90–100; BMI 32.8
--- OUTSIDE RECORDS SUMMARY | 2024-09-12 11:18 | XMS_ITS | Clinical Summary ---
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 0 021 Active Gavilax 17 gram/dose powderIndications :Chronic constipation As directed 1 scoop (17 g) once daily if needed for Constipation. Mix 17g in 4-8 oz of water or juice and drink daily as needed. 1530 g Active sennosides (SENNA) 8.6 mg tablet Take 8.6 mg by mouth two times daily. Active Walker - 4 wheelsIndications :Fibromyalgia,Chr onic midline low back pain with left-sided sciatica For home use. Length of need: 99 with seat 1 Each 023 Active psyllium powdIndications:C hronic constipation Mix 1 tsp in liquid then take by mouth once daily. 283 g 11 023 Active loperamide (IMODIUM) 2 mg capsuleIndication s:Chronic diarrhea TAKE 1 CAPSULE BY MOUTH EVERY MORNING WITH FIRST MEAL OF DAY *MAX 16MG IN 24 HOURS* 28 Capsule 12 024 Active polyvinyl alcohol-povidone (Artificial Tears,pvalch-povi d,) 0.5-0.6 % ophthalmic solutionIndicatio ns:Chronically dry eyes, bilateral INSTILL 1 DROP IN BOTH EYES TWICE DAILY NEEDED 15 mL 2 024 Active NebulizerIndicati ons:Mild persistent asthma without complication (HC) Nebulizer, reuseable neb kit x 1, mask x 1, filters x 1. Frequency of use: twice daily; Medication: budesondie Length of need: 99 months 1 Each 024 Active lancets (Accu-Chek Softclix Lancets)Indicatio ns:Type 2 diabetes mellitus with hyperglycemia, without long-term current use of insulin (HC) As directed two times daily. Dispense item covered by pt ins. E11.9 NIDDM type II - Test 2 times/day. Reason: High A1C 200 Each 3 024 Active blood sugar diagnostic (Blood Glucose Test) stripIndications: Type 2 diabetes mellitus with hyperglycemia, without long-term current use of insulin (HC) Dispense test strips covered by insurance Test 2 times per day. 200 Each 3 024 Active blood-glucose meterIndications: Type 2 diabetes mellitus with hyperglycemia, without long-term current use of insulin (HC) Dispense meter, test strips, lancets covered by pt ins.Test 2 times/day. E11.9 NIDDM type II Reason: High A1C 1 Each 024 Active hydrOXYzine HCL (ATARAX) 25 mg tabletIndications :Depression with anxiety TAKE 1 TABLET BY MOUTH AT BEDTIME NEEDED FOR ANXIETY 30 Tablet 024 Active Lubricant Eye, PG-PEG 400, ophthalmicIndicat ions:Dry eyes, bilateral Place 1-2 Drops into both eyes 3 times daily if needed for Dry Eyes. 10 mL 6 024 Active escitalopram oxalate (LEXAPRO) 10 mg tabletIndications :Depression with anxiety Take 1.5 Tablets (15 mg) by mouth once daily in the morning. 135 Tablet 3 024 Active rizatriptan (MAXALT) 5 mg tabletIndications [...] HOURS NEEDED 85 g 11 024 Active amLODIPine (NORVASC) 10 mg tabletIndications :HTN (hypertension) TAKE 1 TABLET BY MOUTH EVERY NIGHT AT BEDTIME 28 Tablet 12 024 Active budesonide (PULMICORT RESPULES) 0.5 mg/2 mL neb suspensionIndicat ions:Mild persistent asthma without complication (HC) INHALE 1 AMPULE BY MOUTH VIA NEBULIZER TWICE DAILY 360 mL 025 Active aspirin enteric coated (ECOTRIN) 325 mg tabletIndications :Atrial fibrillation, unspecified type (HC) TAKE 1 TABLET BY MOUTH DAILY WITH MEAL 90 Tablet 3 025 Active medication order composer banofen 25 mg PRN Active albuterol HFA (Ventolin HFA) 90 mcg/actuation inhalerIndication s:Mild persistent asthma without complication (HC) INHALE 2 PUFFS BY MOUTH EVERY 4 HOURS NEEDED 18 g 12 025 Active nitroglycerin (NITROSTAT) 0.4 mg sublingual tabletIndications :Hypertensive heart disease with heart failure (HC) Place 1 Tablet (0.4 mg) under the tongue every 5 minutes if needed for Chest Pain. Up to 3 tablets in 15 minutes. 25 Tablet 1 025 Active acetaminophen (TYLENOL) 325 mg tabletIndications :Chronic midline low back pain with left-sided sciatica TAKE 2 TABLETS BY MOUTH EVERY 4-6 HOURS NEEDED FOR PAIN 60 Tablet 5 025 Active NebulizerIndicati ons:Mild persistent asthma without complication (HC) USE DIRECTED TWICE DAILY 60 Each 10 025 Active clotrimazole (Antifungal (Clotrimazole)) 1 % creamIndications: Tinea pedis of left foot APPLY TO AFFECTED AREA(S) TWICE DAILY NEEDED FOR YEAST RASH *PATIENT SELF-ADMINISTERS * 28 g 025 Active simvastatin 20 mg tabletIndications :Mixed hyperlipidemia TAKE 1 TABLET BY MOUTH EVERY NIGHT AT BEDTIME 28 Tablet 025 Active amitriptyline 50 mg tabletIndications :Sleep disorder TAKE 1 TABLET BY MOUTH EVERY NIGHT AT BEDTIME 28 Tablet 025 Active metoprolol succinate 50 mg sustained-release tabletIndications :Essential hypertension with goal blood pressure less than 130/80,New onset atrial fibrillation (HC) TAKE 1 TABLET BY MOUTH DAILY @NOON 28 Tablet 025 Active calcium carbonate-vitamin D3 (500 mg-400 units) (Calcium 500 With D) tabletIndications :Osteopenia, unspecified location Take 1 Tablet by mouth once daily. 28 Tablet 025 Active cholecalciferol (Vitamin D3) 25 mcg (1,000 unit) chew chewable tabletIndications :Osteopenia, unspecified location Chew 1 Tablet (1,000 units) by mouth once daily. 40 units = 1 mcg (1000 units = 25 mcg) 28 Tablet 025 Active ferrous sulfate 325 mg delayed release tabletIndications :Iron deficiency anemia, unspecified iron deficiency anemia type Take 1 Tablet (325 mg) by mouth once daily with a meal. 90 Tablet 025 Active glipiZIDE 10 mg tabletIndications :Uncontrolled type 2 diabetes mellitus with hyperglycemia (HC) TAKE 1 TABLET BY MOUTH DAILY BEFORE A MEAL 60 Tablet 025 Active levothyroxine 25 mcg tabletIndications :Hypothyroidism (acquired) TAKE 1 TABLET BY MOUTH DAILY @NOON 90 Tablet 2 025 Active omeprazole 40 mg Delayed-Release capsuleIndication s:Hiatal hernia with GERD,Chronic GERD TAKE 1 CAPSULE BY MOUTH DAILY 90 Capsule 2 025 Active magnesium oxide 400 mg tabletIndications :Chronic constipation TAKE 1 TABLET BY MOUTH EVERY NIGHT AT BEDTIME 28 Tablet 12 025 Active omeprazole (PRILOSEC) 40 mg Delayed-Release capsuleIndication s:Hiatal hernia with GERD,Chronic GERD Take 1 Capsule (40 mg) by mouth once daily. 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 Lives in [place] now. Kandace EdenOEdilma 12/23/2023 8:08 AM New onset atrial fibrillation [...] Encounters Date Type Department Care Team Description 08/17/2024 Refill [facility] [address] [place] [address] Kandace Mckeon DO Refill Request (Glipizide, Levothyroxine, Omeprazole, Magnesium Oxide) 08/06/2024 Telephone [facility] [address] [facility] [place] [address] Kandace Mckeon DO 08/03/2024 3:00 PM CDT Ancillary Procedure [facility] [address] [place] [address] 08/03/2024 2:45 PM CDT Orders Only [facility] [address] [place] [address] Lab, [place] [facility] 08/03/2024 Travel 07/29/2024 Refill [facility] [address] [place] [address] Kandace Mckeon, Refill Request 07/22/2024 Telephone [facility] [address] [place] [address] Kandace Mckeon DO Abnormal Lab Results (elevated platelets valorie Cosme is Dr. Felix calling from [facility]) 07/21/2024 2:15 PM CDT Office Visit [facility] [address] [place] [address] Kandace Mckeon, Diabetes (sugars were low yesterday before dinner- 90's); Abdominal Pain (still having upset stomach after eating and after bowel movement) 07/21/2024 1:20 PM CDT Ancillary Procedure [facility] [address] [place] [address] 07/21/2024 Travel 07/20/2024 Refill [facility] [address] [place] [address] Kandace Mckeon, Refill Request (Simvastatin, Amitriptyline, Metoprolol Succinate) 07/19/2024 1:00 PM CDT Ancillary Procedure [facility] [address] [place] [address] 07/19/2024 Travel 06/28/2024 Refill [facility] [address] [place] [address] Kandace Mckeon, Refill Request; ANTIFUNGAL CREAM 06/22/2024 Refill [facility] [address] [place] [address] Kandace Mckeon DO Refill Request (Levothyroxine, Glipizide) 06/21/2024 Refill [facility] [address] [place] [address] Kandace Mckeon DO Refill Request (nebulizer) from Last 3 Months Immunizations Immunization Administration Dates Next Due AMB Influenza, IIV4 PF (=>6 mos Flulaval,Fluzone Fluarix)(Flu Clinic Only) 12/23/2019 COVID-19 vaccine (Moderna 100mcg/0.5mL) PF, MDV 05/04/2020,04/06/2020 COVID-19 vaccine (Pfizer-Bio NTech 30mcg/0.3mL) PF, MDV 01/19/2021 Influenza RIV4 (Age 18+ Year s) PRESERV FREE 12/30/2018 Influenza Virus, Unspecified 01/03/2023, 12/30/2018,12/02/2012,2010,01/04/2010 Influenza, IIV3 (Age 6-35 mos) 01/22/2012,2010 Influenza, [...] Answer Date Recorded PHQ-2 TOTAL SCORE 2 04/16/2024 Social Connections Answer Date Recorded Do you [...] is your housing situation today? 2 04/23/2023 Utilities Answer Date Recorded Do you have trouble paying f or utilities (for example, heat, electricity, water, phone)? 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 Respiratory Rate 16 07/31/2022 3:18 PM CDT Oxygen Saturation 96% 07/21/2024 2:16 PM CDT Inhaled Oxygen Concentration - - Weight 91 kg (200 lb 9.6 oz) 07/21/2024 2:15 PM CDT Height 163 cm (5' 4.17) 06/12/2022 2:26 PM CDT Body Mass Index 34.25 06/12/2022 2:26 PM CDT Plan of Treatment Upcoming Encounters Date Type Department Care Team (Late st Contact Info) Description 10/20/2024 1:25 PM CDT Office Visit [facility] [address] [place] [address] Kandace Mckeon DO [address] [facility] [address] 10/22/2024 2:15 PM CDT Office Visit [facility] [address] [place] [address] Kandace Mckeon DO [address] [place] [address] 11/01/2024 11:30 AM CDT Office Visit [facility] [address] [place] [address] Cristy Dickinson, PhD, [address] [place] [address] 12/28/2024 2:45 PM CDT Ancillary Procedure [facility] [address] [place] [address] Health Maintenance Due Date Last Done Comments Zoster (shingles) series for age 50+ (1 of 2) 1976 RSV vaccine for adults or (1 - Risk 60-74 years 1-dose series) 2017 BMI (ht and wt on same day) for age 18+ 06/13/2023 06/12/2022, 08/08/2021, 09/04/2020, Additional history exists Medicare Wellness for age 65+ 06/13/2023 06/12/2022, 10/11/2015, 10/07/2014, Additional history exists COVID-19 vaccine series ( season) 2023 01/19/2021, 05/04/2020, 04/06/2020 Depression screening for age 12+ 04/16/2025 04/16/2024, 12/25/2023, 12/22/2023, Additional history exists Mammogram for age 45-75 07/21/2025 07/22/19, 04/30/2023, 11/13/2021, Additional history exists Fecal testing sDNA-FIT (Cologuard) for age 45-75 12/11/2025 12/11/2022 Lipids for age 45-75 04/16/2029 04/16/2024, 04/23/2023, 05/22/2022, Additional history exists Tetanus booster 03/05/2032 03/05/2022, 12/24, 05/24/2009, Additional history exists Hepatitis C screening for age 18-79 Completed 10/07/2014 Pneumococcal series for age 50+ Completed 03/05/2022, 04/05/2015, 01/25/2008 Tdap Completed 03/05/2022, 01/22/2012 Influenza Vaccine Completed 12/22/2023, , 01/03/2023, Additional history exists DEXA/DXA scan for age 65+ Completed 07/19/2024 Hepatitis B series for 19+ Aged Out N o longer eligible based on patient's age to complete this topic Goals Goal Patient Goal Type Associated Problems Recent Progress Patient-Stated? 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) FERRITIN Routine 08/03/2024 2:32 PM CDT Thrombocytosis CREATININE,ISTAT Routine 08/03/2024 2:31 PM CDT Observation or evaluation for suspected condition PERIPHERAL BLD MORPHOLOGY Routine 08/03/2024 2:30 PM CDT Thrombocytosis CBC WITH AUTO DIFFERENTIAL STAT 08/03/2024 2:30 PM CDT Thrombocytosis RETICULOCYTES STAT 08/03/2024 2:30 PM CDT Thrombocytosis CBC WITH AUTO DIFFERENTIAL STAT 08/03/2024 2:30 PM CDT Thrombocytosis AMB CONSULT TO GASTROENTEROLOGY Routine 07/30/2024 8:19 PM CDT Controlled type 2 diabetes mellitus without complication, without long-term current use of insulin (HC) Irritable bowel syndrome with both constipation and diarrhea HEMOGLOBIN A1C MONITORING (POCT) Routine 07/21/2024 1:40 PM CDT Controlled type 2 diabetes mellitus without complication, without long-term current use of insulin (HC) PLATELET COUNT Routine 07/21/2024 1:39 PM CDT Other iron deficiency anemia XR MAMMO CRYSTAL BILAT SCREEN Routine 07/21/2024 1:33 PM CDT Visit for screening mammogram XR DXA BONE DENSITY 2 SITES AXIAL Routine 07/19/2024 1:06 PM CDT Post-menopausal LIPID PANEL W REFLEX MEASURED LDL Routine 04/16/2024 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 Interval increase in size of enhancing left renal mass, now measuring 3.2 cm and previously measuring 2.3 cm, compatible with solid renal neoplasm. 2. Moderate hiatal hernia. 3. Diffuse hepatic steatosis. Please note that all CT scans at this facility use dose modulation, iterative reconstruction, and/or weight-based dosing when appropriate to reduce radiation dose to as low as reasonably achievable. Dictated by Dennis Castellanos MD @ 08/04/2024 7:15:44 PM (Electronically Signed) Narrative 08/04/2024 7:15 PM CDT For Patients: As a result of the Cures Act, medical imaging exams and procedure reports are released immediately into your electronic medical record. You may view this report before your referring provider. If you have questions, please contact your health care provider. INDICATION: Follow-up clear cell carcinoma of the left kidney. TECHNIQUE: CT abdomen and pelvis acquired with 100 cc Omnipaque 350 IV contrast. COMPARISON: CT abdomen and pelvis 04/30/2023. FINDINGS: Lower chest: Unremarkable. Liver: Diffuse hepatic steatosis. Gallbladder and bile ducts: Cholecystectomy. No suspicious biliary dilatation. Pancreas: Unremarkable. Spleen: Unremarkable. Adrenal glands: Unremarkable. Kidneys: Enhancing left renal mass measuring approximally 3.2 cm, previously 2.3 cm. No hydronephrosis or hydroureter. Probable subcentimeter right renal cyst. No urinary calculi. GI tract: Moderate hiatal hernia. No bowel obstruction. No suspicious bowel wall thickening. Vasculature: Grossly patent vasculature. No abdominal aortic aneurysm. Lymph nodes: No suspicious lymphadenopathy. Peritoneum/Abdominal Wall: No ascites or pneumoperitoneum. No acute abdominal wall abnormality. Pelvis: Normal bladder. No suspicious adnexal mass. Bones: No acute abnormality. Unchanged mild multilevel vertebral body compression deformities. Procedure Note Dennis Castellanos MD - 08/04/2024 For Patients: As a result of the Cures Act, medical imagingexams and procedure reports are released immediately into your electronicmedical record. You may view this report before your referring provider.If you have questions, please contact your health care provider. INDICATION: Follow-up clear cell carcinoma of the left kidney. TECHNIQUE: CT abdomen and pelvis acquired with 100 cc Omnipaque 350 IV contrast. COMPARISON: CT abdomen and pelvis 04/30/2023. FINDINGS: Lower chest: Unremarkable. Liver: Diffuse hepatic steatosis. Gallbladder and bile ducts: Cholecystectomy. No suspicious biliarydilatation. Pancreas: Unremarkable. Spleen: Unremarkable. Adrenal glands: Unremarkable. Kidneys: Enhancing left renal mass measuring approximally 3.2 cm,previously 2.3 cm. No hydronephrosis or hydroureter. Probablesubcentimeter right renal cyst. No urinary calculi. GI tract: Moderate hiatal hernia. No bowel obstruction. No suspiciousbowel wall thickening. Vasculature: Grossly patent vasculature. No abdominal aortic aneurysm. Lymph nodes: No suspicious lymphadenopathy. Peritoneum/Abdominal Wall: No ascites or pneumoperitoneum. No acuteabdominal wall abnormality. Pelvis: Normal bladder. No suspicious adnexal mass. Bones: No acute abnormality. Unchanged mild multilevel vertebral bodycompression deformities. IMPRESSION: 1. Interval increase in size of enhancing left renal mass, now measuring3.2 cm and previously measuring 2.3 cm, compatible with solid renalneoplasm. 2. Moderate hiatal hernia. 3. Diffuse hepatic steatosis. Please note that all CT scans at this facility use dose modulation,iterative reconstruction, and/or weight-based dosing when appropriate toreduce radiation dose to as low as reasonably achievable. Dictated by Dennis Castellanos MD @ 08/04/2024 7:15:44 PM (Electronically Signed) Kandace Mckeon DO CT Final Resul t * (ABNORMAL) FERRITIN (08/03/2024 2:32 PM CDT) FERRITIN 9(L) 16 - 288 ng/mL [facility] Blood BLOOD SPECIMEN / Unknown 08/03/2024 2:32 PM CDT 08/03/2024 2:32 PM CDT Kandacejayden Donovan Detert DO CHEMISTRY Final Resul t [email or web address] [facility] [address] [place] [address], [facility] [address] [place] [address] * POCT Creatinine (08/03/2024 2:31 PM CDT) [facility] POCT,CREATININ E, ISTAT 1.0 0.6 - 1.3 mg/dL [facility] Blood BLOOD SPECIMEN / Unknown 08/03/2024 2:31 PM CDT 08/03/2024 2:31 PM CDT us Kandace Wardt DO CHEMISTRY Final Resul t [facility] [address] [place] [address], [facility] [address] [place] [address] * (ABNORMAL) CBC WITH AUTO DIFFERENTIAL (08/03/2024 2:30 PM CDT) [facility] WHITE BLOOD COUNT 8.6 4.5 - 11.0 thou/cu mm 08/03/2024 10:43 PM CDT [facility] RED BLOOD COUNT 4.37 4.00 - 5.20 mil/cu mm 08/03/2024 10:43 PM CDT [facility] HEMOGLOBIN 11.1(L) 12.0 - 16.0 g/dL 08/03/2024 10:43 PM CDT [facility] HEMATOCRIT 35.7 33.0 - 51.0 % 08/03/2024 10:43 PM CDT [facility] MCV 82 80 - 100 fL 08/03/2024 10:43 PM CDT [facility] MCH 25.4(L) 26.0 - 34.0 pg 08/03/2024 10:43 PM CDT [facility] MCHC 31.1(L) 32.0 - 36.0 g/dL 08/03/2024 10:43 PM CDT [facility] RDW 15.2 11.5 - 15.5 % 08/03/2024 10:43 PM CDT [facility] PLATELET COUNT 475(H) 140 - 440 thou/cu mm 08/03/2024 10:43 PM CDT [facility] MPV 10.6 6.5 - 11.0 fL 08/03/2024 10:43 PM [facility] NRBC 0.0 % 08/03/2024 10:43 PM CDT [facility] ABS NRBC 0.0 thou /cu mm 08/03/2024 10:43 PM [facility] % NEUT 52.3 % 08/03/2024 10:43 PM [facility] % LYMPH 31.3 % 08/03/2024 10:43 PM [facility] % MONO 8.2 % 08/03/2024 10:43 PM [facility] % EOS 6.2 % 08/03/2024 10:43 PM [facility] % BASO 1.8 % 08/03/2024 10:43 PM [facility] % IMMATURE GRAN (METAS,MYELOS,MT OS) 0.2 % 08/03/2024 10:43 PM CDT [facility] ABSOLUTE NEUTROPHILS 4.5 1.7 - 7.0 thou/cu mm 08/03/2024 10:43 PM T [facility] ABSOLUTE LYMPHOCYTES 2.7 0.9 - 2.9 thou/cu mm 08/03/2024 10:43 PM T [facility] ABSOLUTE MONOCYTES 0.7 <0.9 thou/cu mm 08/03/2024 10:43 PM T [facility] ABSOLUTE EOSINOPHILS 0.5(H) <0.5 thou/cu mm 08/03/2024 10:43 PM T [facility] ABSOLUTE BASOPHILS 0.2 <0.3 thou/cu mm 08/03/2024 10:43 PM CDT [facility] ABSOLUTE IMMATURE GRANULOCYTES(MET ,MYELOS,PROS) 0.0 <0.3 thou/cu mm 08/03/2024 10:43 PM CDT [facility] Blood BLOOD SPECIMEN / Unknown [facility] / Unknown 08/03/2024 2:30 PM CDT 08/03/2024 2:30 PM CDT us Kandace Mckeon DO HEMATOLOGY Final Resul t [facility] [address] [place] [address], [place] * PERIPHERAL BLD MORPHOLOGY [[id number]] (08/03/2024 2:30 PM CDT) Case Report Special H[facility]ology Report Case: [id number] Authorizing Provider: Kandace Mckeon DO Collected: 08/03/2024 1430 Ordering Location: [facility] Received: 08/03/2024 1430 Clinic Pathologist: Dennis Carrero MD Specimen: Blood 08/04/2024 1:29 PM CDT [facility] Final Diagnosis PERIPHERAL BLOOD: 1. Mild thrombocytosis 2. Mild normocytic anemia consistent with iron deficiency anemia 3. Minimal absolute eosinophilia, non-specific 4. See comment 08/04/2024 1:29 PM CDT [facility] at 1329 CDT Comment The morphologic and laboratory features of this anemia are characteristic of iron deficiency. In the adult population, blood loss is the most common etiology for iron deficiency with gastrointestinal and gynecologic sites (in women) being the most common sites. Malabsorption issues (gastric bypass, Crohn's disease, celiac sprue) and deficient dietary intake are also in the differential. Clinical correlation is recommended. There are no features suggestive of hemolysis or dysplasia. Thrombocytosis may be commonly associated with iron deficiency as a reactive component and should resolve when the iron stores are adequately replenished. If the thrombocytosis persists (>450K) after adequate iron replacement (and without identifiable clinical etiology), recommend further evaluation to assess thrombocytosis. 08/04/2024 1:29 PM CDT [facility] [facility] Clinical Information The patient is a 69-year-old female. Pertinent clinical information: Thrombocytosis. Per EPIC: Additional history includes hypertension, major neurocognitive disorder due to vascular disease, diabetes, kidney carcinoma, JOSE MANUEL. She is had a persistent thrombocytosis since 2017. 08/03/24 14:32 FERRITIN: 9 (L) 08/04/2024 1:29 PM CDT [facility] CBC and Differential HEMATOLOGY PARAMETERS Tested at: [facility] RESULTS EXPECTED VALUES WBC: 8.6 4.5-86i7071/cumm RBC: 4.37 4.00-5.20 mil/cumm HGB: 11.1 12-16 gm/dl DECREASED HCT: 35.7 33-51% MCV: 82.0 80-100 fl NORMOCYTIC MCH: 25.4 26-34 pg DECREASED MCHC: 31.1 32-36 gm/dl HYPOCHROMIC RDW: 15.2 11.5-15.5% PLT: 475 [id number]/uL ELEVATED MPV: 10.6 6.5-11 fl Retic: 1.1 0.5-1.5% Differential Absolute (%) Expected (%) (x10*9/L) (x10*9/L) Neutrophils: 4.5 (52.3) 1.7-7.0 (42-72%) Lymphocytes: 2.7 (31.4) 0.9-2.9 (20-44%) Monocytes: 0.7 (8.1) <0.9 (0-11%) Eosinophils: 0.5 (5.8) <0.5 (0-2%) ELEVATED Basophils: 0.2 (2.3) <0.3 (<3.0%) 08/04/2024 1:29 PM T [facility] Microscopic Description The final diagnosis is based on microscopic examination of an appropriately stained blood smear. 08/04/2024 1:29 PM [facility] Additional Information Interpreted at [facility], Central Laboratory - [address], [place] [address] 08/04/2024 1:29 PM CDT [facility] Blood BLOOD SPECIMEN / Unknown [facility] / Unknown 08/03/2024 2:30 PM CDT 08/03/2024 2:30 PM CDT Comment:CURRENT MEDICATIONSC urrent Outpatient Medications: acetaminophen (TYLENOL) 325 mg tablet, TAKE 2 TABLETS BY MOUTH EVERY 4-6 HOURS NEEDED FOR PAIN, Disp: 60 Tablet, Rfl: 5 albuterol HFA (Ventolin HFA) 90 mcg/actuation inhaler, INHALE 2 PUFFS BY MOUTH EVERY 4 HOURS NEEDED, Disp: 18 g, Rfl: 12 amitriptyline (ELAVIL) 50 mg tablet, TAKE 1 TABLET BY MOUTH EVERY NIGHT AT BEDTIME, Disp: 90 Tablet, Rfl: 0 amLODIPine (NORVASC) 10 mg tablet, TAKE 1 TABLET BY MOUTH EVERY NIGHT AT BEDTIME, Disp: 28 Tablet, Rfl: 12 aspirin enteric coated (ECOTRIN) 325 mg tablet, TAKE 1 TABLET BY MOUTH DAILY WITH MEAL, Disp: 90 Tablet, Rfl: 3 rqgszbg-xzblsgxinxyqg-fvyhoggv (EXCEDRIN EX STR) 250-250-65 mg, Take 1 Tablet by mouth every 6 hours if needed for Headache. Max acetaminophen dose: 4000mg in 24 hrs., Disp: , Rfl: 0 blood sugar diagnostic (Blood Glucose Test) strip, Dispense test strips covered by insurance Test 2 times per day., Disp: 200 Each, Rfl: 3 blood-glucose meter, Dispense meter, test strips, lancets covered by pt ins.Test 2 times/day. E11.9 NIDDM type II Reason: High A1C, Disp: 1 Each, Rfl: 0 budesonide (PULMICORT RESPULES) 0.5 mg/2 mL neb suspension, INHALE 1 AMPULE BY MOUTH VIA NEBULIZER TWICE DAILY, Disp: 360 mL, Rfl: 0 calcium carbonate (ANTACID CALCIUM) 215 mg calcium (500 mg) chew, Chew 2-4 tablets by mouth between meals and at bedtime as needed., Disp: , Rfl: 0 clotrimazole (Antifungal (Clotrimazole)) 1 % cream, APPLY TO AFFECTED AREA(S) TWICE DAILY NEEDED FOR YEAST RASH *PATIENT SELF-ADMINISTERS*, Disp: 28 g, Rfl: 0 escitalopram oxalate (LEXAPRO) 10 mg tablet, Take 1.5 Tablets (15 mg) by mouth once daily in the morning., Disp: 135 Tablet, Rfl: 3 Gavilax 17 gram/dose powder, As directed 1 scoop (17 g) once daily if needed for Constipation. Mix 17g in 4-8 oz of water or juice and drink daily as needed., Disp: 1530 g, Rfl: 0 glipiZIDE 10 mg tablet, TAKE 1 TABLET BY MOUTH DAILY BEFORE A MEAL, Disp: 30 Tablet, Rfl: 0 hydrOXYzine HCL (ATARAX) 25 mg tablet, TAKE 1 TABLET BY MOUTH AT BEDTIME NEEDED FOR ANXIETY, Disp: 30 Tablet, Rfl: 0 lancets (Accu-Chek Softclix Lancets), As directed two times daily. Dispense item covered by pt ins. E11.9 NIDDM type II - Test 2 times/day. Reason: High A1C, Disp: 200 Each, Rfl: 3 levothyroxine 25 mcg tablet, TAKE 1 TABLET BY MOUTH DAILY @NOON, Disp: 30 Tablet, Rfl: 0 loperamide (IMODIUM) 2 mg capsule, TAKE 1 CAPSULE BY MOUTH EVERY MORNING WITH FIRST MEAL OF DAY *MAX 16MG IN 24 HOURS*, Disp: 28 Capsule, Rfl: 12 Lubricant Eye, PG-PEG 400, ophthalmic, Place 1-2 Drops into both eyes 3 times daily if needed for Dry Eyes., Disp: 10 mL, Rfl: 6 medication order composer, banofen 25 mg PRN, Disp: , Rfl: medication order composer, Resident is to self check blood pressure once weekly or as needed., Disp: 1 Each, Rfl: 0 Methyl Salicylate-Menthol (Icy Hot) 30-10 % topical cream, APPLY TOPICALLY 1 GRAM TOPICALLY EVERY 2 HOURS NEEDED, Disp: 85 g, Rfl: 11 metoprolol succinate (TOPROL XL) 50 mg sustained-release tablet, TAKE 1 TABLET BY MOUTH DAILY @NOON, Disp: 90 Tablet, Rfl: 0 Nebulizer, USE DIRECTED TWICE DAILY, Disp: 60 Each, Rfl: 10 Nebulizer, Nebulizer, reuseable neb kit x 1, mask x 1, filters x 1. Frequency of use: twice daily; Medication: budesondie Length of need: 99 months, Disp: 1 Each, Rfl: 0 nitroglycerin (NITROSTAT) 0.4 mg sublingual tablet, Place 1 Tablet (0.4 mg) under the tongue every 5 minutes if needed for Chest Pain. Up to 3 tablets in 15 minutes., Disp: 25 Tablet, Rfl: 1 nystatin powder (MYCOSTATIN) powder, Apply 1 Strip topically to affected area(s) 3 times daily., Disp: 60 g, Rfl: 0 omeprazole (PRILOSEC) 40 mg Delayed-Release capsule, Take 1 Capsule (40 mg) by mouth once daily., Disp: 90 Capsule, Rfl: 2 polyvinyl alcohol-povidone (Artificial Tears,pvalch-povid,) 0.5-0.6 % ophthalmic solution, INSTILL 1 DROP IN BOTH EYES TWICE DAILY NEEDED, Disp: 15 mL, Rfl: 2 psyllium powd, Mix 1 tsp in liquid then take by mouth once daily., Disp: 283 g, Rfl: 11 rizatriptan (MAXALT) 5 mg tablet, TAKE 1 TABLET BY MOUTH DAILY NEEDED *GIVE AT MINIMUM OF 2 HRS APART, MAX DOSE 30MG PER 24 HRS*, Disp: 12 Tablet, Rfl: 11 sennosides (SENNA) 8.6 mg tablet, Take 8.6 mg by mouth two times daily., Disp: , Rfl: simvastatin (ZOCOR) 20 mg tablet, TAKE 1 TABLET BY MOUTH EVERY NIGHT AT BEDTIME, Disp: 90 Tablet, Rfl: 2 Trolamine Salicylate (ASPERCREME) 10 % lotion, Apply 1 Applicator topically to affected area(s) 4 times daily if needed (pain in legs or where needed)., Disp: , Rfl: Walker - 4 wheels, For home use. Length of need: 99 with seat, Disp: 1 Each, Rfl: 0 us Kandace Mckeon DO HEMATOLOGY Final Resul t [facility] [address] [place] [address], [place] * RETICULOCYTES [37815.0] (08/03/2024 2:30 PM CDT) RETIC% 1.1 0.5 - 1.5 % 08/03/2024 10:43 PM CDT [facility] RETIC (ABSOLUTE) 0.05 0.03 - 0.08 mil/cu mm 08/03/2024 10:43 PM CDT [facility] Blood BLOOD SPECIMEN / Unknown [facility] / Unknown 08/03/2024 2:30 PM CDT 08/03/2024 2:30 PM CDT us Kandace Mckeon DO HEMATOLOGY Final Resul t [facility] [address] [place] [address], [place] * (ABNORMAL) POCT Hemoglobin A1C Monitoring (07/21/2024 1:40 PM CDT) POC HEMOGLOBIN A1C 7.5(H) <6.0 % OF TOTAL HGB [facility] Comment: Any point of care results exhibiting inconsistency with the patient's clinical status should be repeated using a different testing method. Blood BLOOD SPECIMEN / Unknown 07/21/2024 1:40 PM CDT 07/21/2024 1:40 PM CDT Kandace Mckeon DO CHEMISTRY Final Resul t Performing Organization Address City/[facility]/ZIP Co de Phone Number [facility] [address] [place] [address], [place] [phone] [facility] [address] [place] [address] * (ABNORMAL) PLATELET COUNT (07/21/2024 1:39 PM CDT) PLATELET COUNT 600(H) 140 - 400 Thousand/u L [facility] demario Chopra Blood BLOOD SPECIMEN / Unknown 07/21/2024 1:39 PM CDT 07/21/2024 1:39 PM CDT us Kandace Mckeon DO HEMATOLOGY Final Resul t [facility] [address] [address], [place] [phone] [facility] [address] [place] [address] * XR MAMMO CRYSTAL BILAT SCREEN (07/21/2024 1:33 PM CDT) Anatomical Region Laterality Modality BREASTS, Breast Left, Breast Right Bilateral Mammography Impressions 07/23/2024 8:00 AM CDT There is no radiographic evidence for malignancy. Recommend annual mammograms. MAMMOGRAM ASSESSMENT: ACR 1 Negative PATIENTS: You will also receive a letter with your examination results in an easy to read format. If you have questions about your results, please contact your referring provider. Narrative 07/23/2024 8:00 AM CDT For Patients: As a result of the Century Cures Act, medical imaging exams and procedure reports are released immediately into your electronic medical record. You may view this report before your referring provider. If you have questions, please contact your health care provider. XR MAMMO CRYSTAL BILAT SCREEN [[id number]] CLINICAL HISTORY: This is an asymptomatic 69 y.o. patient. INDICATION FOR EXAM: Mammogram Screening. TECHNIQUE: CC and MLO views were obtained. This study was evaluated with the assistance of Computer-Aided Detection. Breast Tomosynthesis was used in interpretation. COMPARISON FILM: Yes 04/30/23 [facility] 11/13/21 [facility] FINDINGS: There are scattered areas of fibroglandular density. There are no dominant masses, suspicious micro calcifications or areas of architectural distortion. Kandace Mckeon DO MAMMO Final Resul t * (ABNORMAL) XR DXA BONE DENSITY 2 SITES AXIAL (07/19/2024 1:06 PM CDT) Anatomical Region Laterality Modality Spine, HIPS, HIPL, HIPR Other Impressions 07/23/2024 4:36 PM CDT Osteopenia. RECOMMENDATIONS: The National Osteoporosis Foundation recommends pharmacologic treatment for patients with T-scores of -2.5 or less, patients with prior history of fragility fractures, or patients with 10-year probability of greater than 3% at hips or greater than 20% of suffering major osteoporotic fractures. Recommend continued optimization of calcium and vitamin D intake through dietary means and/or supplementation and regular exercise. Repeat scan recommended in 3-5 years. Christina Flores PA-C [facility] 07/23/2024 Narrative 07/23/2024 4:36 PM CDT For Patients: Results are automatically released to your [facility] ([employer]) account once available, in compliance with federal regulations. This means that you may see your results before your provider has had a chance to review them. Please allow 2-3 business days for your provider to comment on the results. XR DXA Bone Mineral Density (BMD) EXAM LOCATION: [facility] [address] [facility] [address] PATIENT NAME: Juni Metcalf DATE OF : 1955 EXAM DATE: 07/19/2024 REQUESTING PROVIDER: Kandace Mckeon DO GENDER AT : female HEIGHT: 5' 4.17 (06/12/2022) WEIGHT: 208 lb (04/16/2024) MENOPAUSAL STATUS: Postmenopausal RACE/ETHNICITY: White RISK FACTORS: Family History of Hip Fracture (parental) and White Race CURRENT MEDICATION FOR BONE LOSS: NONE INDICATION: Post-Menopause COMPARISON DATE(S): None DXA scans are compared to prior studies for a patient only when the two (or more) studies were performed on the same scanner. It is not possible to compare data generated on one scanner to data from another because there are not standards in DXA equipment. This applies even if the two scanners are made by the same process specialist. PROCEDURE: Dual-energy x-ray absorptiometry performed with routine technique. Reporting is completed in the form of a T-score. The T-score represents the standard deviation from peak bone mass based on young healthy adult. A Z-score is used for diagnosis in premenopausal women, and for men under the age of 50. FINDINGS: RESULT LUMBAR SPINE L1 - L4 BMD: 1.098 g/cm2 T-Score: - 0.8 Z-Score: - 0.1 Change from prior: None RESULTS FEMUR Left femoral neck BMD: 0.864 g/cm2 T-Score: - 1.3 Z-Score: - 0.3 Change from prior: None Right femoral neck BMD: 0.828 g/cm2 T-Score: - 1.5 Z-Score: - 0.6 Change from prior: None Left hip BMD: 0.919 g/cm2 T-Score: - 0.7 Z-Score: - 0.1 Change from prior: None Right hip BMD: 0.884 g/cm2 T-Score: - 1.0 Z-Score: - 0.4 Change from prior: None WHO criteria: Normal: T-score at or above -1 SD Osteopenia: T-score between -1.1 and -2.4 SD Osteoporosis: T-score at or below -2.5 SD FRAX RISK CALCULATION (USED FOR OSTEOPENIA ONLY): 10-year probability of major osteoporotic fracture: 15.2%. 10-year probability of hip fracture: 1.5%. us Kandace Donovan Linda DO DEXA Final Resul t * (ABNORMAL) LIPID PANEL W REFLEX MEASURED LDL (04/16/2024 12:05 PM MACHINE MAINTENANCE) [facility] CHOLESTEROL, TOTAL 202(H) <200 mg/dL [facility] HDL CHOLESTEROL 56 > OR = 50 mg/dL [facility] TRIGLYCERIDES 137 <150 mg/dL [facility] LDL-CHOLESTEROL 121(H) mg/dL (calc) [facility] Comment: Reference range: <100 Desirable range <100 mg/dL for primary prevention; <70 mg/dL for patients with CHD or diabetic patients with > or = 2 CHD risk factors. LDL-C is now calculated using the Jonathan-Marylu calculation, which is a validated novel method providing better accuracy than the Friedewald equation in the estimation of LDL-C. Jonathan SS et al. MORAIMA. 2013;310(19): 4737-3036 (http://education.[employer]/faq/JXU519) CHOL/HDLC RATIO 3.6 <5.0 (calc) [facility] NON HDL CHOLESTEROL 146(H) <130 mg/dL (calc) [facility] Comment: For patients with diabetes plus 1 major ASCVD risk factor, treating to a non-HDL-C goal of <100 mg/dL (LDL-C of <70 mg/dL) is considered a therapeutic option. Blood BLOOD SPECIMEN / Unknown 04/16/2024 12:05 PM MACHINE MAINTENANCE 04/16/2024 12:06 PM MACHINE MAINTENANCE us Kandace Donovan Linda DO CHEMISTRY Final Resul t [facility] [address] [place] [address], [facility] [address] [place] [address] * SDNA-FIT EXTERNAL (COLOGUARD) (12/11/2022 2:15 PM CDT) NONINV COLON CA DNA+OCC BLD SCRN STL-IMP Negative Negative 12/17/2022 9:02 PM CDT [facility] (CLIA #:[id number]) Comment: NEGATIVE TEST RESULT. A negative Cologuard [...] Lucas et al, N Engl J Med 2014;370(14):2865-9114) The normal value (reference range) for this assay is negative. COLOGUARD RE-SCREENING RECOMMENDATION: Periodic colorectal cancer screening is an important part of preventive healthcare for asymptomatic individuals at average risk for colorectal cancer. Following a negative Cologuard result, the [place] Cancer Society and U.S. Multi-Society Task Force screening guidelines recommend a Cologuard re-screening interval of 3 years. References: [place] [employer] Society Guideline for Colorectal Cancer Screening: https://www.cancer.org/cancer/auzgd-httmhk-phnbgd/pcbexafzs-doogqrunq-muyztjo/ac s-rec ommendations.html.; Harish DK, Gold WARREN, Skyler MAHER, Colorectal Cancer Screening: Recommendations for Physicians and Patients from the U.S. Multi-Society Task Force on Colorectal Cancer Screening , Am J Gastroenterology 2017; 112:7731-5319. TEST DESCRIPTION: Composite algorithmic analysis of stool [...] screened with both Cologuard and colonoscopy. (Shahriar Gomez. et al, N Engl J Med 2014;370(14):4441-9053.) Cologuard may produce a false negative or false positive result (no colorectal cancer or precancerous polyp present at colonoscopy follow up). A negative Cologuard test result does not guarantee the absence of CRC or advanced adenoma (pre-cancer). The current Cologuard screening interval is every 3 years. ([place] Cancer Society and U.S. Multi-Society Task Force). Cologuard performance data in a 10,000 patient pivotal study using colonoscopy as the reference method can be accessed at the following location: www.[employer]/results. Additional description of the Cologuard test process, warnings and precautions can be found at www.[employer].com. Stool specimen (specimen) (Rectum) 12/11/2022 2:15 PM CDT 12/13/2022 6:23 PM CDT Kandace Wardt DO URINE Final Resul t [facility] (CLIA #:[id number]) [place] [address], * ANTI HCV [[id number]] (10/07/2014 4:00 PM CDT) HEPATITIS C ANTIBODY Non-Reacti ve Non-Reacti ve 10/08/2014 4:38 PM CDT [facility] Blood specimen (specimen) BLOOD SPECIMEN / Unknown Venipuncture / Unknown 10/07/2014 4:00 PM CDT 10/07/2014 4:00 PM CDT Narrative [facility] - 10/08/2014 4:38 PM CDT Antibodies to HCV not detected; does not exclude the possibility of exposure to HCV. Kandace Wardt DO SEND OUTS Final Resul t [facility] [address] [place] [address], from Last 3 Months or Most Recently Relevant to Health Maintenance Insurance MEDICARE PART B HB ONLY [facility] MEDICARE PPS Care Teams Door Clamp Operator Relationship Specialty Start Date End Date Kandace Mckeon DO [address] [place] [address] PCP - General 12/25/09 Parish Ruffin MD Pulmonology Pulmonary Medicine 12/04/11 Kwaku Wild MD [address] [place] [id number] Physical Medicine and Rehabilitation 10/07/14 Kari Hunt, PhD, LP [address] [place] [address] Psychologist Psychology 12/10/16
--- NOTE | 2024-09-12 11:38 | CRLHL7_ITS ---
For Patients: As a result of the Century Cures Act, medical imaging exams and procedure reports are released immediately into your electronic medical record. You may view this report before your referring provider. If you have questions, please contact your health care provider. INDICATION: Chest pain. TECHNIQUE: Chest one-view. COMPARISON: 01/15/2023. FINDINGS: There is moderate cardiomegaly. The lungs are clear. The pulmonary vasculature and pleural surfaces appear normal. The large hiatal hernia. The bony thorax appears intact. There is a mild thoracolumbar scoliosis convex left. There are right quadrant cholecystectomy clips. IMPRESSION: Moderate cardiomegaly. Large hiatal hernia. Dictated by Rancho Thomas MD @ 09/12/2024 12:08:25 PM (Electronically Signed)
[2024-09-12 11:41] LABS: Troponin, Point-of-Care* 0.01 ng/ml (0.01-0.04)
[2024-09-12 11:50] LABS: Basophils Percent Auto 1.2 % (0.0-3.0); Eosinophils Absolute Auto 0.54 K/uL (0.00-0.50); Eosinophils Percent Auto 6.5 % (0.0-7.0); Hematocrit 37.7 % (33.0-51.0); Hemoglobin* 11.9 gm/dL (12.0-16.0); Immature Granulocytes Abs Auto 0.05 K/uL (0.00-0.30); Immature Granulocytes Pct Auto 0.6 %; Lymphocytes Absolute Auto 2.91 K/uL (0.90-2.90); Lymphocytes Percent Auto 35.3 % (20-44); Mean Corpuscular HGB Conc 32 gm/dL (32-36); Mean Corpuscular Hemoglobin 26 pg (26-34); Mean Corpuscular Volume 82 fL (80-100); Monocytes Percent Auto 7.9 % (0.0-11.0); Neutrophils Percent Auto 48.5 % (42.0-72.0); Platelet Count* 453 K/uL (140-440); RDW Coefficient of Variation % 16.8 % (11.5-15.5); Red Blood Count 4.59 m/uL (4.00-5.20); White Blood Count* 8.25 K/uL (4.50-11.00)
[2024-09-12 11:58] LABS: Slide Review Reflex No
[2024-09-12] MEDS: 0.9 % SODIUM CHLORIDE 1000 ml 1,000 ML IV (12:00)
[2024-09-12 12:04] LABS: Albumin* 4.2 g/dL (3.3-5.0); Chloride* 104 mmol/L (96-114); Sodium* 139 mmol/L (135-149)
[2024-09-12 12:05] LABS: Potassium* 3.8 mmol/L (3.6-5.1)
[2024-09-12 12:07] LABS: Anion Gap 8 mEq/L (7-15); Blood Urea Nitrogen* 15 mg/dL (7-30); Carbon Dioxide* 27 mmol/L (20-32); Creatinine* 0.9 mg/dL (0.5-1.5); Est. Creatinine Clearance* 49.12; Estimated Glomerular Filt Rate 70 ml/min; INR 1.05 (0.91-1.10); Prothrombin Time 14.6 Seconds
[2024-09-12 12:08] LABS: Alanine Aminotransferase* 28 U/L (4-35); Alkaline Phosphatase* 84 U/L (40-150); Aspartate Amino Transferase* 28 U/L (12-35); Bilirubin Direct* 0.2 mg/dL (0.0-0.5); Bilirubin Total* 0.5 mg/dL (0.1-1.5); Calcium* 8.9 mg/dL (8.4-10.6); Glucose* 160 mg/dL (60-115); Lipase* 25 U/L (23-300); Partial Thromboplastin Time* 27 Seconds (23-33); Total Protein* 7.5 g/dL (6.0-8.3)
[2024-09-12 12:11] LABS: C Reactive Protein* 1.7 mg/dL (0.5-1.0)
--- NOTE | 2024-09-12 12:11 | ED.CHESTPAIN ---
HPI - Chest Pain General Date Seen: 09/12/24 Chief Complaint: Chest Pain Stated Complaint: CHEST PAIN Time Seen by Provider: 09/12/24 11:19 Source: patient, EMS, RN notes reviewed and old records reviewed Mode of arrival: EMS Limitations: no limitations History of Present Illness HPI narrative: Patient is a 69-year-old female who resides at [place] presents here with chest pain this started at 9:00 a.m., will she was sitting up in getting ready to eat. She describes in her central chest region with a little bit of across her shoulders of discomfort, the pain is basically gone away at this point when I see her in the emergency room, she was given aspirin and 1 nitroglycerin but her pressures 10 a. And she felt dizzy. She was having say she says some PVCs. She has a history previously of sinus tachycardia atrial flutter and diabetes. She initially rated her pain a 5/10. No nausea no vomiting, denies any diaphoresis associated with this. No fevers chills or sweats she has had multiple workups before for chest pain. Related Data Home Medications ?Medication ?Instructions ?Recorded ?Confirmed acetaminophen 325 mg tablet 650 mg PO Q6H PRN pain 12/27/21 12/10/23 albuterol sulfate 90 mcg/actuation 2 puff inhalation Q4H PRN 12/27/21 09/12/24 aerosol inhaler (Ventolin HFA) amitriptyline 50 mg tablet 50 mg PO HS 12/27/21 09/12/24 amlodipine 10 mg tablet 10 mg PO HS 12/27/21 09/12/24 antacid See Rx Instructions PO DAILY PRN 12/27/21 12/10/23 budesonide 0.5 mg/2 mL suspension 0.5 mg inhalation BID 12/27/21 09/12/24 for nebulization diphenhydramine HCl 25 mg capsule 25 mg PO Q8H PRN allergic symptoms 12/27/21 12/10/23 (Banophen) glipizide 5 mg tablet 5 mg PO DAILY 12/27/21 12/10/23 hydroxyzine HCl 25 mg tablet 25 mg PO HS PRN anxiety 12/27/21 12/10/23 levothyroxine 25 mcg tablet 25 mcg PO DAILY 12/27/21 09/12/24 metoprolol succinate 50 mg 50 mg PO DAILY 12/27/21 09/12/24 tablet,extended release 24 hr nitroglycerin 0.4 mg sublingual 0.4 mg sublingual Q5M PRN 12/27/21 12/10/23 tablet rizatriptan 5 mg tablet 5 mg PO DAILY PRN 12/27/21 09/12/24 simvastatin 20 mg tablet 20 mg PO HS 12/27/21 09/12/24 naproxen sodium 220 mg tablet (All 220 mg PO .once weekly PRN 01/08/22 12/10/23 Day Pain Relief) calcium carbonate 200 mg PO Q4H PRN 04/29/22 09/12/24 aspirin 325 mg tablet,delayed 325 mg PO DAILY 01/15/23 09/12/24 release escitalopram oxalate 5 mg tablet 5 mg PO DAILY 01/15/23 12/10/23 escitalopram oxalate 10 mg tablet 10 mg PO DAILY 05/12/23 09/12/24 lactulose 10 gram/15 mL oral ml PO 12/10/23 12/10/23 solution Previous Rx's ?Medication ?Instructions ?Recorded omeprazole 40 mg capsule,delayed 40 mg PO DAILY #14 caps 01/08/22 release Allergies Allergy/AdvReac Type Severity Reaction Status Date / Time duloxetine AdvReac Mild sleep Verified 09/12/24 11:26 disturbance and fatigue Review of Systems Status of ROS Reports: 10 or more systems reviewed and unremarkable except as noted in History and below [facility] Medical History PTSD (post-traumatic stress disorder) ?F43.10 - Post-traumatic stress disorder, unspecified (ICD-10) Atrial fibrillation ?I48.91 - Unspecified atrial fibrillation (ICD-10) 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 - Dependent personality disorder (ICD-10) Hypertensive heart disease with heart failure ?I11.0 - Hypertensive heart disease with heart failure (ICD-10) Clear cell carcinoma of left kidney ?C64.2 - Malignant neoplasm of left kidney, except renal pelvis (ICD-10) Diabetes mellitus with hyperglycemia, without long-term current use of insulin ?E11.65 - Type 2 diabetes mellitus with hyperglycemia (ICD-10) Chronic constipation ?K59.09 - Other constipation (ICD-10) CHAPITO (obstructive sleep apnea) ?G47.33 - Obstructive sleep apnea (adult) (pediatric) (ICD-10) Mild persistent asthma ?J45.30 - Mild persistent asthma, uncomplicated (ICD-10) Migraine ?G43.909 - Migraine, unspecified, not intractable, without status migrainosus (ICD-10) Hypertension ?I10 - Essential (primary) hypertension (ICD-10) Hiatal hernia ?K44.9 - Diaphragmatic hernia without obstruction or gangrene (ICD-10) GERD (gastroesophageal reflux disease) ?K21.9 - Gastro-esophageal reflux disease without esophagitis (ICD-10) Fibromyalgia ?M79.7 - Fibromyalgia (ICD-10) Depression ?F32.A - Depression, unspecified (ICD-10) Chronic fatigue syndrome ?G93.32 - Myalgic encephalomyelitis/chronic fatigue syndrome (ICD-10) Surgical History H/O: hysterectomy ?Z90.710 - Acquired absence of both cervix and uterus (ICD-10) History of cholecystectomy ?Z90.49 - Acquired absence of other specified parts of digestive tract (ICD-10) H/O section ?Z98.891 - History of uterine scar from previous surgery (ICD-10) S/P appendectomy ?Z90.49 - Acquired absence of other specified parts of digestive tract (ICD-10) Social History Smoking Status: Never smoker Do you use any of these nicotine containing products: None Second hand tobacco smoke exposure: No How often do you have a drink containing alcohol: never How often do you have six or more drinks on one occasion: Never AUDIT-C Alcohol total score: 0 Non-prescribed substance use: denies use service: No Exam Narrative Exam Narrative: On examination in room 3 she is in no apparent distress, nontoxic pupils equal round reactive to light there is no scleral icterus redness or TMs are normal oropharynx normal there is no adenopathy anterior posterior chains, chest is good air entry bilaterally no wheezing crackles noted heart sounds are normal no palpable tenderness over chest, her abdomen is otherwise soft obese there is no guarding no organomegaly bowel sounds are normal, she moves all extremities independently and well. Neurologically intact in upper lower extremities, skin reveals no petechiae rashes. Const Vital Signs, click to edit/add: Vital Signs - 24 hr 09/12/24 11:19 09/12/24 12:37 09/12/24 12:38 Temperature 98.0 F Pulse Rate 63 66 Pulse Rate [Pulse Oximeter] 71 Respiratory Rate 18 20 14 Blood Pressure 151/78 H Blood Pressure [Right Upper Arm] 134/70 Pulse Oximetry 92 100 Oxygen Delivery Method Room Air 09/12/24 12:45 09/12/24 13:00 09/12/24 13:01 Temperature Pulse Rate 62 61 61 Pulse Rate [Pulse Oximeter] Respiratory Rate 15 16 16 Blood Pressure 139/74 Blood Pressure [Right Upper Arm] Pulse Oximetry 96 92 93 Oxygen Delivery Method 09/12/24 13:15 09/12/24 13:30 09/12/24 13:31 Temperature Pulse Rate 59 L 61 64 Pulse Rate [Pulse Oximeter] Respiratory Rate 13 9 L Blood Pressure 135/76 Blood Pressure [Right Upper Arm] Pulse Oximetry 92 90 90 Oxygen Delivery Method 09/12/24 13:45 09/12/24 14:00 09/12/24 14:01 Temperature Pulse Rate 62 63 64 Pulse Rate [Pulse Oximeter] Respiratory Rate 11 L 16 Blood Pressure 130/78 Blood Pressure [Right Upper Arm] Pulse Oximetry 90 91 91 Oxygen Delivery Method 09/12/24 14:15 Temperature Pulse Rate 73 Pulse Rate [Pulse Oximeter] Respiratory Rate 22 Blood Pressure Blood Pressure [Right Upper Arm] Pulse Oximetry 96 Oxygen Delivery Method Documenting provider has reviewed patient's vital signs: yes Course Course ED Course: Spoke with the patient her pain went away, I wonder if this is related to her hiatal hernia, I do recommend she follow up with her primary care physician, 2 troponins and 2 EKGs that do not show acute x2 along with a negative D-dimer I think we can let her go home at this point. She was very comfortable with this plan. Vital Signs Vital signs: Initial Vital Signs Respiratory Effort Normal, Spontaneous 09/12/24 11:18 Respiratory Depth Normal 09/12/24 11:18 Vital Signs Temperature 98.0 F 09/12/24 11:19 Pulse Rate 71 09/12/24 11:19 Respiratory Rate 18 09/12/24 11:19 Blood Pressure 134/70 09/12/24 11:19 Pulse Oximetry 92 09/12/24 11:19 Oxygen Delivery Method Room Air 09/12/24 11:19 Temperature 98.0 F 09/12/24 11:19 Pulse Rate 73 09/12/24 14:15 Respiratory Rate 22 09/12/24 14:15 Blood Pressure 130/78 09/12/24 14:01 Pulse Oximetry 96 09/12/24 14:15 Oxygen Delivery Method Room Air 09/12/24 11:19 Medications Administered Medications: Discontinued Medications Generic Name Dose Route Start Last Admin Trade Name Freq PRN Reason Stop Dose Admin Sodium Chloride 1,000 mls @ 1,000 mls/hr 09/12/24 11:45 09/12/24 13:00 0.9 % Sodium Chloride 1000 Ml IV 09/12/24 12:44 Infused .Q1H MANDEEP Infusion MDM - Chest Pain MDM Narrative Medical decision making narrative: During the evaluation of this patient I considered multiple differential diagnosis is. The life-threatening differential diagnosis include coronary disease/NM, pulmonary embolism, pneumothorax, pneumonia, and aortic dissection. Other differential diagnosis included but were not limited to pericarditis, myocarditis, chest wall pain, GERD, esophageal rupture, rib fracture contusion, pleurisy, as well as other etiologies. Medical Records Data Attestation: I reviewed the patient's medical records. Lab Data Attestation: I reviewed the patient's lab results. Labs: Lab Results 09/12/24 09/12/24 09/12/24 Range/Units 11:20 11:26 11:46 WBC 8.25 (4.50-11.00) K/uL RBC 4.59 (4.00-5.20) m/uL Hgb 11.9 L (12.0-16.0) gm/dL Hct 37.7 (33.0-51.0) % MCV 82 (80-100) fL MCH 26 (26-34) pg MCHC 32 (32-36) gm/dL RDW Coeff of Anamika 16.8 H (11.5-15.5) % Plt Count 453 H (140-440) K/uL Neut % (Auto) 48.5 (42.0-72.0) % Lymph % (Auto) 35.3 (20-44) % [place] % (Auto) 7.9 (0.0-11.0) % Eos % (Auto) 6.5 (0.0-7.0) % Baso % (Auto) 1.2 (0.0-3.0) % Neut # (Auto) 4.00 (1.7-7.0) K/uL Lymph # (Auto) 2.91 H (0.90-2.90) K/uL [place] # (Auto) 0.70 (0.00-0.90) K/UL Eos # (Auto) 0.54 H (0.00-0.50) K/uL Baso # (Auto) 0.10 (0.00-0.30) K/uL Abs Immat Gran (auto) 0.05 (0.00-0.30) K/uL Imm/Tot Granulo (auto) 0.6 % INR 1.05 (0.91-1.10) APTT 27 (23-33) Seconds D-Dimer Quant (PE/DVT) 0.20 (0.00-0.50) ug/ml Sodium 139 (135-149) mmol/L Potassium 3.8 (3.6-5.1) mmol/L Chloride 104 (96-114) mmol/L Carbon Dioxide 27 (20-32) mmol/L Anion Gap 8 (7-15) mEq/L BUN 15 (7-30) mg/dL Creatinine 0.9 (0.5-1.5) mg/dL Estimated Creat Clear 49.12 Estimated GFR 70 ml/min Glucose 160 H (60-115) mg/dL Calcium 8.9 (8.4-10.6) mg/dL Total Bilirubin 0.5 (0.1-1.5) mg/dL Direct Bilirubin 0.2 (0.0-0.5) mg/dL AST 28 (12-35) U/L ALT 28 (4-35) U/L Alkaline Phosphatase 84 (40-150) U/L C-Reactive Protein 1.7 H (0.5-1.0) mg/dL NT-Pro-B Natriuret Pep 684 H (See Note) pg/mL Total Protein 7.5 (6.0-8.3) g/dL Albumin 4.2 (3.3-5.0) g/dL Lipase 25 (23-300) U/L SARS-CoV-2 (PCR) Negative SARS-CoV-2 (Negative) Influenza Type A (PCR) Negative PCR FLU A (Negative) Influenza Type B (PCR) Negative PCR FLU B (Negative) RSV (PCR) Negative PCR RSV (Negative) POC Troponin I 0.01 (0.01-0.04) ng/ml 09/12/24 Range/Units 13:44 WBC (4.50-11.00) K/uL RBC (4.00-5.20) m/uL Hgb (12.0-16.0) gm/dL Hct (33.0-51.0) % MCV (80-100) fL MCH (26-34) pg MCHC (32-36) gm/dL RDW Coeff of Anamika (11.5-15.5) % Plt Count (140-440) K/uL Neut % (Auto) (42.0-72.0) % Lymph % (Auto) (20-44) % [place] % (Auto) (0.0-11.0) % Eos % (Auto) (0.0-7.0) % Baso % (Auto) (0.0-3.0) % Neut # (Auto) (1.7-7.0) K/uL Lymph # (Auto) (0.90-2.90) K/uL [place] # (Auto) (0.00-0.90) K/UL Eos # (Auto) (0.00-0.50) K/uL Baso # (Auto) (0.00-0.30) K/uL Abs Immat Gran (auto) (0.00-0.30) K/uL Imm/Tot Granulo (auto) % INR (0.91-1.10) APTT (23-33) Seconds D-Dimer Quant (PE/DVT) (0.00-0.50) ug/ml Sodium (135-149) mmol/L Potassium (3.6-5.1) mmol/L Chloride (96-114) mmol/L Carbon Dioxide (20-32) mmol/L Anion Gap (7-15) mEq/L BUN (7-30) mg/dL Creatinine (0.5-1.5) mg/dL Estimated Creat Clear Estimated GFR ml/min Glucose (60-115) mg/dL Calcium (8.4-10.6) mg/dL Total Bilirubin (0.1-1.5) mg/dL Direct Bilirubin (0.0-0.5) mg/dL AST (12-35) U/L ALT (4-35) U/L Alkaline Phosphatase (40-150) U/L C-Reactive Protein (0.5-1.0) mg/dL NT-Pro-B Natriuret Pep (See Note) pg/mL Total Protein (6.0-8.3) g/dL Albumin (3.3-5.0) g/dL Lipase (23-300) U/L SARS-CoV-2 (PCR) (Negative) Influenza Type A (PCR) (Negative) Influenza Type B (PCR) (Negative) RSV (PCR) (Negative) POC Troponin I 0.00 L (0.01-0.04) ng/ml Imaging Data Chest x-ray: Attestation: I have reviewed the pertinent imaging results. My impression: No acute changes there is a large hiatal hernia Radiologist's impression: atient: Iris Metcalf MR#: [id number] : 1955 Acct:[id number] Loc: ED Service Date: 09/12/[address]: Ordering Physician: Santy Gracia M.D. Date of Service: 09/12/24 Procedure(s): XR chest 2V Accession Number(s): [id number] cc: Kandace Mckeon D.O.; Santy Gracia M.D.~ For Patients: As a result of the Cures Act, medical imaging exams and procedure reports are released immediately into your electronic medical record. You may view this report before your referring provider. If you have questions, please contact your health care provider. INDICATION: Chest pain. TECHNIQUE: Chest one-view. COMPARISON: 01/15/2023. FINDINGS: There is moderate cardiomegaly. The lungs are clear. The pulmonary vasculature and pleural surfaces appear normal. The large hiatal hernia. The bony thorax appears intact. There is a mild thoracolumbar scoliosis convex left. There are right quadrant cholecystectomy clips. IMPRESSION: Moderate cardiomegaly. Large hiatal hernia. Dictated by Rancho Thomas MD @ 09/12/2024 12:08:25 PM (Electronically Signed) ECG Data Attestation: I personally reviewed and interpreted this ECG as follows: ECG interpretation date: 09/12/24 Prior ECG tracings: available for review Interpretation: EKG x2 shows normal sinus rhythm, no acute ST wave changes. Slightly prolonged QT at 512 milliseconds. Discharge Plan Discharge Clinical Impression: Chest pain, Hernia, hiatal Patient Disposition: Home w/ Parent or Adult Condition: Improved Instructions: Chest Pain (DC), Hiatal Hernia (ED) Additional Instructions: Home rest, follow-up with primary care next week, consider outpatient imaging such as a Lexiscan of ongoing signs and symptoms, think the likelihood that this is from your hiatal hernia, return as needed if increasing pain. Activity Level: Light activity Discharge Diet: Regular Prescriptions: No Action lactulose 10 gram/15 mL solution PO acetaminophen 325 mg tablet 650 mg PO Q6H PRN (Reason: pain) amitriptyline 50 mg tablet 50 mg PO HS amlodipine 10 mg tablet 10 mg PO HS budesonide 0.5 mg/2 mL suspension for nebulization 0.5 mg inhalation BID glipizide 5 mg tablet 5 mg PO DAILY levothyroxine 25 mcg tablet 25 mcg PO DAILY metoprolol succinate 50 mg tablet extended release 24 hr 50 mg PO DAILY simvastatin 20 mg tablet 20 mg PO HS antacid suspension See Rx Instructions PO DAILY PRN Rx Instructions: 15-30ml orally daily PRN; rizatriptan 5 mg tablet 5 mg PO DAILY PRN Rx Instructions: may repeat once after 2 hours albuterol sulfate [Ventolin HFA] 90 mcg/actuation HFA aerosol inhaler 2 puff INHALATION Q4H PRN diphenhydramine HCl [Banophen] 25 mg capsule 25 mg PO Q8H PRN (Reason: allergic symptoms) Rx Instructions: 1-2 caps prn hydroxyzine HCl 25 mg tablet 25 mg PO HS PRN (Reason: anxiety) nitroglycerin 0.4 mg tablet, sublingual 0.4 mg sublingual Q5M PRN Rx Instructions: max 3 tabs within 15 minutes naproxen sodium [All Day Pain Relief] 220 mg tablet 220 mg PO .once weekly PRN omeprazole 40 mg capsule,delayed release(DR/EC) 40 mg PO DAILY Qty: 14 0RF aspirin 325 mg tablet,delayed release (DR/EC) 325 mg PO DAILY escitalopram oxalate 5 mg tablet 5 mg PO DAILY escitalopram oxalate 10 mg tablet 10 mg PO DAILY calcium carbonate 200 mg calcium (500 mg) tablet,chewable 200 mg PO Q4H PRN Rx Instructions: Chew 215 mg of calcium daily as needed for indigestion or heartburn. Follow Up/Referrals: Kandace Mckeon DO [Primary Care Provider, Family Practice] Stand Alone Forms: [facility] Info Instructions
--- OUTSIDE RECORDS SUMMARY | 2024-09-12 12:18 | XMS_ITS | CCD ---
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
[2024-09-12 12:25] LABS: NT Pro B Type NatriureticPept* 684 pg/mL (See Note)
[2024-09-12 12:37] LABS: PCR FLU A Negative PCR FLU A (Negative); PCR FLU B Negative PCR FLU B (Negative); PCR RSV Negative PCR RSV (Negative); SARS PCR* Negative SARS-CoV-2 (Negative)
--- OUTSIDE RECORDS SUMMARY | 2024-09-12 12:48 | XMS_ITS | CCD ---
Author Organization Unknown Care Team Providers Care Wall Taper Name Role Phone Route Salesperson, [place] Primary Care Provider Unava ilable Unavailable Chronic Care Management Unavaila ble Summary Purpose DataExchange Insurance Providers Payer name Policy type / Coverage type Covered green party ID Effective Begin Date Effective End Date [place] [id number] Unknown Unknown [employer] Medicare Part B [id number] Unknown Unknown Family History Family History data not found Medication Administered No Medication Administered data Reason For Visit No Reason For Visit data
--- OUTSIDE RECORDS SUMMARY | 2024-09-12 12:48 | XMS_ITS | CCD ---
Author Organization Unknown Care Team Providers Care Hand Stamper Name Role Phone Echo Technologist, [place] Primary Care Provider Unava ilable Unavailable Chronic Care Management Unavaila ble Summary Purpose DataExchange Insurance Providers Payer name Policy type / Coverage type Covered alliance party ID Effective Begin Date Effective End Date [place] Part B [id number] Unknown Unknown [employer] Medicare Part B [id number] Unknown Unknown Family History Family History data not found Medication Administered No Medication Administered data Reason For Visit No Reason For Visit data
== END 2024-09-12 15:26 | disposition home or self-care (01) ==
PROVIDERS: Emergency Provider Family Medicine; PCP Family Medicine
DX: R07.9 Chest pain, unspecified (principal); R42 Dizziness and giddiness; K44.9 Diaphragmatic hernia without obstruction or gangrene
CPT/HCPCS: 36415; 71046; 80048; 80076; 83690; 83880; 84484; 85025; 85379; 85610; 85730; 86140; 87631; 93005; 94761; 96360; 99284; 99285; J7030

== ENCOUNTER 2024-10-10 13:19 | Emergency (ER) | payer OTHER, SELFPAY ==
[2024-10-10] VITALS (11 sets, daily range): BP systolic 134–160; BP diastolic 66–78; PULSE 61–100; RESP 13–18; TEMP 36.3–36.6; O2SAT 92–97
--- OUTSIDE RECORDS SUMMARY | 2024-10-10 13:22 | XMS_ITS | Clinical Summary ---
Author Organization [facility] Address [address] [place] [address] Care Team Providers Care Towel Hemmer Name Role Phone Kandace Mckeon DO Primary Care Provider Parish Ruffin MD Unavailable Unavailable Kwaku Wild MD Unavailable [phone] Kari Hunt PhD, LP Unavailable + [phone] Allergies Active Allergy Reactions Criticality Noted Date [...] the morning. 135 Tablet 3 024 Active Methyl Salicylate-Mentho l (Icy Hot) [...] AT BEDTIME 28 Tablet 12 025 Active amitriptyline 50 mg tabletIndications :Sleep disorder TAKE 1 TABLET BY MOUTH EVERY NIGHT AT BEDTIME 28 Tablet 12 025 Active metoprolol succinate 50 mg sustained-release tabletIndications :Essential hypertension with goal blood pressure less than 130/80,New onset atrial fibrillation (HC) TAKE 1 TABLET BY MOUTH DAILY @NOON 28 Tablet 12 025 Active calcium carbonate-vitamin D3 (500 mg-400 units) (Calcium 500 With D) tabletIndications :Osteopenia, unspecified location Take 1 Tablet by mouth once daily. 28 Tablet 11 025 Active cholecalciferol (Vitamin D3) 25 mcg (1,000 unit) chew chewable tabletIndications :Osteopenia, unspecified location Chew 1 Tablet (1,000 units) by mouth once daily. 40 units = 1 mcg (1000 units = 25 mcg) 28 Tablet 11 025 Active ferrous sulfate 325 mg delayed [...] AT BEDTIME 28 Tablet 12 025 Active rizatriptan (MAXALT) 5 mg tabletIndications :Migraine without aura and without status migrainosus, not intractable TAKE 1 TABLET BY MOUTH DAILY NEEDED *GIVE AT A MINIMUM OF 2 HRS APART*MAX OF 30MG PER 24 HRS* 12 Tablet 025 Active rizatriptan (MAXALT) 5 mg tabletIndications :Migraine without aura and without status migrainosus, not intractable TAKE 1 TABLET BY MOUTH DAILY NEEDED *GIVE AT MINIMUM OF 2 HRS APART, MAX DOSE 30MG PER 24 HRS* 12 Tablet 11 024 2024 Discontinued Active Problems Patient Care Coordination [...] 04/17/2022 Hypertensive heart disease with heart failure 11/26/1911/03/2023 Anticoagulation monitoring, INR range 2.5-3.5 06/11/19 20 05/24/2022 Acute on chronic diastolic ( congestive) heart failure 07/01/2018 11/03/2023 Mild persistent asthma 01/02/201207/30 Reactive airway disease 08/09/201111/22 CHAPITO AHI-11 positional, 10/24/2009, 04/01/10 04/08/2010 04/08/2010 Sleep apnea 12/19/2009 04/08/2010 CHAPITO AHI-11 positional, 10/24/2009 10/29/2009 04/08/2010 Unspecified hypothyroidism 07/27/2009 0 04/15/2014 Encounters Date Type Department Care Team Description 10/08/2024 Refill [facility] [address] [place] [address] Kandace Mckeon, Refill Request (Antifungal (Clotrimazole)) 10/06/2024 Refill [facility] [address] [place] [address] Kandace Mckeon DO Refill Request (Rizatriptan) 09/21/2024 Orders Only [facility] Scanner 1 scan: (1-Ord) [facility], 09/21/2024 09/12/2024 Orders Only [facility] Scanner 1 scan: (1-Ord) [facility], XR CHEST 2V, 09/12/2024 08/17/2024 Refill [facility] [address] [place] [address] Kandace Mckeon DO Refill Request (Glipizide, Levothyroxine, Omeprazole, Magnesium Oxide) 08/06/2024 Telephone [facility] [address] [place] [address] Kandace Mckeon DO 08/03/2024 3:00 PM CDT Ancillary Procedure [address] [address] 08/03/2024 2:45 PM CDT Orders Only [address] [address] Lab, [place] [facility] 08/03/2024 Travel 07/29/[address] [address] Kandace Mckeon DO Refill Request 07/22/[address] [address] Kandace Mckeon DO Abnormal Lab Results (elevated platelets hi Carmelina is Dr. Felix calling from [facility]) 07/21/2024 2:15 PM CDT Office Visit [address] [address] Kandace Mckeon DO Diabetes (sugars were low yesterday before dinner- 90's); Abdominal Pain (still having upset stomach after eating and after bowel movement) 07/21/2024 1:20 PM CDT Ancillary Procedure [address] [address] 07/21/2024 Travel 07/20/[address] [address] Kandace Mckeon DO Refill Request (Simvastatin, Amitriptyline, Metoprolol Succinate) 07/19/2024 1:00 PM CDT Ancillary Procedure [address] [address] 07/19/2024 Travel from Last 3 Months Immunizations Immunization Administration [...] on file Legal Sex Female 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 Gender Identity Not on file Sexual Orientation Not on file Obstetrics History Last Filed Vital Signs Vital Sign Reading Time Taken Comments Blood Pressure 133/82 07/21/2024 2:16 PM CDT Pulse 68 07/21/2024 2:16 PM CDT Temperature 36.8 C (98.2 F) 01/27/2023 3:09 PM 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 Respiratory Rate 16 07/31/2022 3:18 PM CDT Oxygen Saturation 96% 07/21/2024 2:16 PM CDT Inhaled Oxygen Concentration - - Weight 91 kg (200 lb 9.6 oz) 07/21/2024 2:15 PM CDT Height 163 cm (5' 4.17) 06/12/2022 2:26 PM CDT Body Mass Index 34.25 06/12/2022 2:26 PM CDT Plan of Treatment Upcoming Encounters Date Type Department Care Team (Late st Contact Info) Description 10/13/2024 9:50 AM CDT Office Visit [facility] [address] [place] [address] Kandace Mckeon DO [address] [place] [address] 11/01/2024 11:30 AM CDT Office Visit [facility] [address] [place] [address] Cristy Dickinson, PhD, LP [address] [place] [address] 12/28/2024 2:45 PM CDT Ancillary Procedure [facility] [address] [place] [address] Health Maintenance Due Date Last Done Comments Zoster (shingles) series for age 50+ (1 of 2) 1976 RSV vaccine for adults or (1 - Risk 60-74 years 1-dose series) 2017 BMI (ht and wt on same day) for age 18+ 06/13/2023 06/12/2022, 08/08/2021, 09/04/2020, Additional history exists Medicare Wellness for age 65+ 06/13/2023 06/12/2022, 10/11/2015, 10/07/2014, Additional history exists COVID-19 vaccine series (2023- season) 2023 01/19/2021, 05/04/2020, 04/06/2020 Influenza Vaccine (#1) 2024 , 01/03/2023, 01/03/2023, Additional history exists Depression screening for age 12+ 04/16/2025 04/16/2024, 12/25/2023, 12/22/2023, Additional history exists Mammogram for age 45-75 07/21/2025 07/22/19, 04/30/2023, 11/13/2021, Additional history exists Fecal testing sDNA-FIT (Cologuard) for age 45-75 12/11/2025 12/11/2022 Lipids for age 45-75 04/16/2029 04/16/2024, 04/23/2023, 05/22/2022, Additional history exists Tetanus booster 03/05/2032 03/05/2022, 10/03/2011, 05/24/2009, Additional history exists Hepatitis C screening for age 18-79 Completed 10/07/2014 Pneumococcal series for age 50+ Completed 03/05/2022, 04/05/2015, 01/25/2008 DEXA/DXA scan for age 65+ Completed 07/19/2024 [...] Procedure Name Priority Date/Time Associated Diagnosis Comments SCAN-EYE EXAM 09/21/2024 12:00 AM CDT SCAN-RADIOLOGY REPORT 09/12/2024 12:[address] [...] REFLEX MEASURED LDL Routine 04/16/2024 12:05 PM 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 HTN (hypertension) Controlled type 2 diabetes mellitus without complication, without long-term current use of insulin (HC) SDNA-FIT EXTERNAL (COLOGUARD) Routine 12/11/2022 2:15 PM CDT Screening for colon cancer ANTI HCV Routine 10/07/2014 4:00 PM CDT Need for hepatitis C screening test from Last 3 Months or Most Recently Relevant to Health Maintenance Results * SCAN-EYE EXAM (09/21/2024 12:00 AM CDT) us Scanner OTHER Final Result * SCAN-RADIOLOGY REPORT (09/12/2024 12:00 AM CDT) [...] CDT) FERRITIN 9(L) 16 - 288 ng/mL [address] [employer] [facility] Blood BLOOD SPECIMEN / Unknown 08/03/2024 2:32 PM CDT 08/03/2024 2:32 PM CDT Kandace Wardt DO CHEMISTRY Final Resul t [facility] [address] [place] [address], [facility] [address] [place] [address] * POCT Creatinine (08/03/2024 2:31 PM CDT) [facility] POCT,CREATININ E, ISTAT 1.0 0.6 - 1.3 mg/dL [facility] Blood BLOOD SPECIMEN / Unknown 08/03/2024 2:31 PM CDT 08/03/2024 2:31 PM CDT us Kandace Wardt DO CHEMISTRY Final Resul t [facility] [address] [place] [address], [facility] [address] [place] [address] * (ABNORMAL) CBC WITH AUTO DIFFERENTIAL (08/03/2024 2:30 PM CDT) [facility] WHITE BLOOD COUNT 8.6 4.5 - 11.0 thou/cu mm 08/03/2024 10:43 PM CDT [facility] RED BLOOD COUNT 4.37 4.00 - 5.20 mil/cu mm 08/03/2024 10:43 PM CDT [facility] HEMOGLOBIN 11.1(L) 12.0 - 16.0 g/dL 08/03/2024 10:43 PM CDT [facility] HEMATOCRIT 35.7 33.0 - 51.0 % 08/03/2024 10:43 PM CDT [facility] MCV 82 80 - 100 fL 08/03/2024 10:43 PM CDT [facility] MCH 25.4(L) 26.0 - 34.0 pg 08/03/2024 10:43 PM CDT [facility] MCHC 31.1(L) 32.0 - 36.0 g/dL 08/03/2024 10:[address] [facility] RDW 15.2 11.5 - 15.5 % 08/03/2024 10:[address] [facility] PLATELET COUNT 475(H) 140 - 440 thou/cu mm 08/03/2024 10:[address] [facility] MPV 10.6 6.5 - 11.0 fL 08/03/2024 10:[facility] NRBC 0.0 % 08/03/2024 10:[address] [facility] ABS NRBC 0.0 thou /cu mm 08/03/2024 10:[address] [facility] % NEUT 52.3 % 08/03/2024 10:[address] [facility] % LYMPH 31.3 % 08/03/2024 10:[address] [facility] % MONO 8.2 % 08/03/2024 10:[address] [facility] % EOS 6.2 % 08/03/2024 10:[address] [facility] % BASO 1.8 % 08/03/2024 10:[address] [facility] % IMMATURE GRAN (METAS,MYELOS,WA OS) 0.2 % 08/03/2024 10:[address] [facility] ABSOLUTE NEUTROPHILS 4.5 1.7 - 7.0 thou/cu mm 08/03/2024 10:[address] [facility] ABSOLUTE LYMPHOCYTES 2.7 0.9 - 2.9 thou/cu mm 08/03/2024 10:[address] [facility] ABSOLUTE MONOCYTES 0.7 <0.9 thou/cu mm 08/03/2024 10:[address] [facility] ABSOLUTE EOSINOPHILS 0.5(H) <0.5 thou/cu mm 08/03/2024 10:[address] [facility] ABSOLUTE BASOPHILS 0.2 <0.3 thou/cu mm 08/03/2024 10:43 PM CDT [facility] ABSOLUTE IMMATURE GRANULOCYTES(MET ,MYELOS,PROS) 0.0 <0.3 thou/cu mm 08/03/2024 10:43 PM CDT [facility] Blood BLOOD SPECIMEN / Unknown [facility] / Unknown 08/03/2024 2:30 PM CDT 08/03/2024 2:30 PM CDT us Kandace Mckeon DO HEMATOLOGY Final Resul t [facility] [address] [place] [address], * PERIPHERAL BLD MORPHOLOGY [86092.2] (08/03/2024 2:30 PM CDT) Case Report Special Hematology Report Case: [id number] Authorizing Provider: Kandace Mckeon DO Collected: 08/03/2024 1430 Ordering Location: [facility] Received: 08/03/2024 1430 Clinic Pathologist: Dennis Carrero MD Specimen: Blood 08/04/2024 1:29 PM CDT [facility] Final Diagnosis PERIPHERAL BLOOD: 1. Mild thrombocytosis 2. Mild normocytic anemia consistent with iron deficiency anemia 3. Minimal absolute eosinophilia, non-specific 4. See comment 08/04/2024 1:29 PM CDT [facility] at 1329 CDT Comment The [...] to assess thrombocytosis. 08/04/2024 1:29 PM CDT [facility] Clinical Information The patient is a 69-year-old female. Pertinent clinical information: Thrombocytosis. Per EPIC: Additional history includes hypertension, major neurocognitive disorder due to vascular disease, diabetes, kidney carcinoma, JOSE MANUEL. She is had a persistent thrombocytosis since 2017. 08/03/24 14:32 FERRITIN: 9 (L) 08/04/2024 1:29 PM CDT [facility] CBC and Differential HEMATOLOGY PARAMETERS Tested at: [facility] RESULTS EXPECTED VALUES WBC: 8.6 4.5-09m3818/cumm RBC: 4.37 4.00-5.20 mil/cumm HGB: 11.1 12-16 gm/dl DECREASED HCT: 35.7 33-51% MCV: 82.0 80-100 fl NORMOCYTIC MCH: 25.4 26-34 pg DECREASED MCHC: 31.1 32-36 gm/dl HYPOCHROMIC RDW: 15.2 11.5-15.5% PLT: 475 140-270h7913/uL ELEVATED MPV: 10.6 6.5-11 fl Retic: 1.1 0.5-1.5% Differential Absolute (%) Expected (%) (x10*9/L) (x10*9/L) Neutrophils: 4.5 (52.3) 1.7-7.0 (42-72%) Lymphocytes: 2.7 (31.4) 0.9-2.9 (20-44%) Monocytes: 0.7 (8.1) <0.9 (0-11%) Eosinophils: 0.5 (5.8) <0.5 (0-2%) ELEVATED Basophils: 0.2 (2.3) <0.3 (<3.0%) 08/04/2024 1:29 PM CDT [facility] Microscopic Description The final diagnosis is based on microscopic examination of an appropriately stained blood smear. 08/04/2024 1:29 PM CDT [facility] Additional Information Interpreted at [facility] Central Laboratory - [address], [place] [address] 08/04/2024 1:29 PM CDT [facility] Blood BLOOD SPECIMEN / Unknown [...] WITH MEAL, Disp: 90 Tablet, Rfl: 3 ktzsurq-wzxzrqojxfnrl-kliqskpb (EXCEDRIN EX STR) 250-250-65 mg, Take 1 [...] 1. Frequency of use: twice daily; Medication: [email or web address] Length of need: 99 months, Disp: 1 [...] Kandace Mckeon DO HEMATOLOGY Final Resul t [facility] [address] [place] [address], * RETICULOCYTES [18158.0] (08/03/2024 2:30 PM CDT) RETIC% 1.1 0.5 - 1.5 % 08/03/2024 10:43 PM CDT [facility] RETIC (ABSOLUTE) 0.05 0.03 - 0.08 mil/cu mm 08/03/2024 10:43 PM CDT [facility] Blood BLOOD SPECIMEN / Unknown [facility] / Unknown 08/03/2024 2:30 PM CDT 08/03/2024 2:30 PM CDT us Kandace Mckeon DO HEMATOLOGY Final Resul t [facility] [address] [place] [address], * (ABNORMAL) POCT Hemoglobin A1C Monitoring (07/21/2024 1:40 PM CDT) Pathologist [facility] POC HEMOGLOBIN A1C 7.5(H) <6.0 % OF TOTAL HGB [facility] Comment: Any point of care results exhibiting inconsistency with the patient's clinical status should be repeated using a different testing method. Blood BLOOD SPECIMEN / Unknown 07/21/2024 1:40 PM CDT 07/21/2024 1:40 PM CDT us Kandace Mckeon DO CHEMISTRY Final Resul t Performing Organization Address City/[facility]/ZIP Co de Phone Number [facility] [address] [place] [address], [facility] [address] [place] [address] * (ABNORMAL) PLATELET COUNT (07/21/2024 1:39 PM CDT) PLATELET COUNT 600(H) 140 - 400 Thousand/u L [facility] demario Chopra Blood BLOOD SPECIMEN / Unknown 07/21/2024 1:39 PM CDT 07/21/2024 1:39 PM CDT us Kandace Mckeon DO HEMATOLOGY Final Resul t [facility] [address] [place] [address], [facility] [address] [facility] [place] [address] * XR MAMMO CRYSTAL BILAT SCREEN (07/21/2024 [...] care provider. XR MAMMO CRYSTAL BILAT SCREEN [[id number]] CLINICAL HISTORY: This is an asymptomatic 69 y.o. patient. INDICATION FOR EXAM: Mammogram Screening. TECHNIQUE: CC and MLO views were obtained. This study was evaluated with the assistance of Computer-Aided Detection. Breast Tomosynthesis was used in interpretation. COMPARISON FILM: Yes 04/30/23 [employer] 11/13/21 [employer] FINDINGS: There are scattered areas of fibroglandular [...] recommended in 3-5 years. Christina Flores PA-C [facility] 07/23/2024 Narrative 07/23/2024 4:36 PM CDT For Patients: Results are automatically released to your [facility]) account once available, in compliance with federal regulations. This means that you may see your results before your provider has had a chance to review them. Please allow 2-3 business days for your provider to comment on the results. XR DXA Bone Mineral Density (BMD) EXAM LOCATION: [facility] [address] [facility] [address] PATIENT NAME: Juni Metcalf DATE OF : [...] two scanners are made by the same senior data developer. PROCEDURE: Dual-energy x-ray absorptiometry performed with routine [...] 15.2%. 10-year probability of hip fracture: 1.5%. 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 LDL-C is now calculated using the Jonathan-Valero calculation, which is a validated novel method providing better accuracy than the Friedewald equation in the estimation of LDL-C. Jonathan MONROY et al. MORAIMA. 2013;310(19): 9326-2457 (http://education.[employer]/faq/JPR392) CHOL/HDLC RATIO 3.6 <5.0 (calc) [facility] NON HDL CHOLESTEROL 146(H) <130 mg/dL (calc) [facility] Comment: For patients with diabetes plus 1 major ASCVD risk factor, treating to a non-HDL-C goal of <100 mg/dL (LDL-C of <70 mg/dL) is considered a therapeutic option. 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 A negative Cologuard [...] Lucas et al, N Engl J Med 2014;370(14):0328-6887) The normal value (reference range) for this assay is negative. COLOGUARD RE-SCREENING RECOMMENDATION: Periodic colorectal cancer screening is an important part of preventive healthcare for asymptomatic individuals at average risk for colorectal cancer. Following a negative Cologuard result, the [place] [employer] and U.S. Multi-Society Task Force screening guidelines recommend a Cologuard re-screening interval of 3 years. References: [place] [employer] Guideline for Colorectal Cancer Screening: https://www.cancer.org/cancer/mkobd-xcrmgt-qpgwbn/kcyudanfk-htcindriy-uppxfpd/ac s-rec ommendations.html.; Harish MOFFETT, Gold WARREN, Skyler MirandaK, Colorectal Cancer Screening: Recommendations for Physicians and Patients from the U.S. Multi-Society Task Force on Colorectal Cancer Screening , Am J Gastroenterology 2017; 112:6451-8739. TEST DESCRIPTION: Composite algorithmic analysis of stool [...] (Shahriar Day al, N Engl J Med 2014;370(14):8812-7624.) Cologuard may produce a false negative or false positive result (no colorectal cancer or precancerous polyp present at colonoscopy follow up). A negative Cologuard test result does not guarantee the absence of CRC or advanced adenoma (pre-cancer). The current Cologuard screening interval is every 3 years. ([place] [employer] and U.S. Multi-Society Task Force). Cologuard performance data in a 10,000 patient pivotal study using colonoscopy as the reference method can be accessed at the following location: www.[employer].Chrends/results. Additional description of the Cologuard test process, warnings and precautions can be found at www.Chujianrd.com. Stool specimen (specimen) (Rectum) 12/11/2022 2:15 PM CDT 12/13/2022 6:23 PM CDT Kandace Wardt DO URINE Final Resul t [facility] (CLIA #:[id number]) [place] [address], [place] [phone] * ANTI HCV [96197.2] (10/07/2014 4:00 PM CDT) HEPATITIS C ANTIBODY Non-Reacti ve Non-Reacti ve 10/08/2014 4:38 PM CDT [facility] Blood specimen (specimen) BLOOD SPECIMEN / Unknown Venipuncture / Unknown 10/07/2014 4:00 PM CDT 10/07/2014 4:00 PM CDT Narrative [facility] - 10/08/2014 4:38 PM CDT Antibodies to HCV not detected; does not exclude the possibility of exposure to HCV. Kandace Wardt DO SEND OUTS Final Resul t [facility] [address] [place] [address], from Last 3 Months or Most Recently Relevant to Health Maintenance Insurance MEDICARE PART B HB ONLY [facility] MEDICARE PPS Care Teams Towel Hemmer Relationship Specialty Start Date End Date Kandace Mckeon DO [address] [place] [address] PCP - General 12/25/09 Parish Ruffin MD Pulmonology Pulmonary Medicine 12/04/11 Kwaku Wild MD [address] [place] [address] Physical Medicine and Rehabilitation 10/07/14 Kari Hunt, PhD, [address] [place] [address] Psychologist Psychology 12/10/16
--- NOTE | 2024-10-10 14:09 | ED.CHESTPAIN ---
HPI - Chest Pain General Time Seen by Provider: 14:09 <Valerie Miller MD - Last Filed: 10/10/24 16:49> Date Seen: 10/10/24 <Valerie Miller MD - Last Filed: 10/10/24 16:49> Chief Complaint: Chest Pain <Valerie Miller MD - Last Filed: 10/10/24 16:49> Stated Complaint: CHEST PAIN - NAUSEATED <Valerie Miller MD - Last Filed: 10/10/24 16:49> Time Seen by Provider: 10/10/24 14:09 <Valerie Miller MD - Last Filed: 10/10/24 16:49> Source: patient, RN notes reviewed and old records reviewed <Valerie Miller MD - Last Filed: 10/10/24 16:49> Mode of arrival: ambulatory <Valerie Miller MD - Last Filed: 10/10/24 16:49> Limitations: no limitations <Valerie Miller MD - Last Filed: 10/10/24 16:49> History of Present Illness HPI narrative: Iris is a very pleasant 69-year-old female with history of paroxysmal atrial fibrillation, dependent personality disorder, currently a resident at [facility] who comes to the emergency room with complaints of chest pain. Patient had the onset of chest pain approximately 11 30 and states that the pain lasted for 3 hours. It was in left side of her chest. It was not associated with shortness of breath or cough although she does endorse using her inhaler more recently and difficulty breathing. She has not had any vomiting. She notes that the pain she experienced is now gone. She states that she feels like her feet are somewhat swollen. She has not been exposed to any illnesses. She denies fever chills runny nose. <Valerie Miller MD - Last Filed: 10/10/24 16:49> Related Data Home Medications: Home Medications ?Medication ?Instructions ?Recorded ?Confirmed acetaminophen 325 mg tablet 650 mg PO Q6H PRN pain 12/27/21 12/10/23 albuterol sulfate 90 mcg/actuation 2 puff inhalation Q4H PRN 12/27/21 09/12/24 aerosol inhaler (Ventolin HFA) amitriptyline 50 mg tablet 50 mg PO HS 12/27/21 09/12/24 amlodipine 10 mg tablet 10 mg PO HS 12/27/21 09/12/24 antacid See Rx Instructions PO DAILY PRN 12/27/21 12/10/23 budesonide 0.5 mg/2 mL suspension 0.5 mg inhalation BID 12/27/21 09/12/24 for nebulization diphenhydramine HCl 25 mg capsule 25 mg PO Q8H PRN allergic symptoms 12/27/21 12/10/23 (Banophen) glipizide 5 mg tablet 5 mg PO DAILY 12/27/21 12/10/23 hydroxyzine HCl 25 mg tablet 25 mg PO HS PRN anxiety 12/27/21 12/10/23 levothyroxine 25 mcg tablet 25 mcg PO DAILY 12/27/21 09/12/24 metoprolol succinate 50 mg 50 mg PO DAILY 12/27/21 09/12/24 tablet,extended release 24 hr nitroglycerin 0.4 mg sublingual 0.4 mg sublingual Q5M PRN 12/27/21 12/10/23 tablet rizatriptan 5 mg tablet 5 mg PO DAILY PRN 12/27/21 09/12/24 simvastatin 20 mg tablet 20 mg PO HS 12/27/21 09/12/24 naproxen sodium 220 mg tablet (All 220 mg PO .once weekly PRN 01/08/22 12/10/23 Day Pain Relief) calcium carbonate 200 mg PO Q4H PRN 04/29/22 09/12/24 aspirin 325 mg tablet,delayed 325 mg PO DAILY 01/15/23 09/12/24 release escitalopram oxalate 5 mg tablet 5 mg PO DAILY 01/15/23 12/10/23 escitalopram oxalate 10 mg tablet 10 mg PO DAILY 05/12/23 09/12/24 lactulose 10 gram/15 mL oral ml PO 12/10/23 12/10/23 solution Previous Rx's ?Medication ?Instructions ?Recorded omeprazole 40 mg capsule,delayed 40 mg PO DAILY #14 caps 01/08/22 release apixaban 5 mg tablet (Eliquis) 5 mg PO BID #60 tabs 10/10/24 <Valerie Miller MD - Last Filed: 10/10/24 16:49> Allergies/Adverse Reactions: Allergies Allergy/AdvReac Type Severity Reaction Status Date / Time duloxetine AdvReac Mild sleep Verified 09/12/24 11:26 disturbance and fatigue <Valerie Miller MD - Last Filed: 10/10/24 16:49> Review of Systems Status of ROS Reports: 10 or more systems reviewed and unremarkable except as noted in History and below <Valerie Miller MD - Last Filed: 10/10/24 16:49> Const Reports: fatigue; Denies: fever or chills <Valerie Miller MD - Last Filed: 10/10/24 16:49> Eyes Denies: change in vision <Valerie Miller MD - Last Filed: 10/10/24 16:49> ENMT Denies: throat pain, neck pain, nasal discharge or nasal congestion <Valerie Miller MD - Last Filed: 10/10/24 16:49> Cardio Reports: chest pain, swelling of feet/ankles and lightheadedness (Transient on the way to the ER); Denies: palpitations, edema or shortness of breath with exertion <Valerie Miller MD - Last Filed: 10/10/24 16:49> Resp Reports: cough (Over the past year couple of weeks); Denies: shortness of breath <Valerie Miller MD - Last Filed: 10/10/24 16:49> GI Reports: nausea (Transient); Denies: abdominal pain or vomiting <Valerie Miller MD - Last Filed: 10/10/24 16:49> Denies: painful urination <Valerie Miller MD - Last Filed: 10/10/24 16:49> Musculo Denies: neck pain <Valerie Miller MD - Last Filed: 10/10/24 16:49> Neuro Denies: headache <Valerie Miller MD - Last Filed: 10/10/24 16:49> Endo Reports: fatigue <Valerie Miller MD - Last Filed: 10/10/24 16:49> [facility] Medical History: Medical History PTSD (post-traumatic stress disorder) ?F43.10 - Post-traumatic stress disorder, unspecified (ICD-10) Atrial fibrillation ?I48.91 - Unspecified atrial fibrillation (ICD-10) 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 - Dependent personality disorder (ICD-10) Hypertensive heart disease with heart failure ?I11.0 - Hypertensive heart disease with heart failure (ICD-10) Clear cell carcinoma of left kidney ?C64.2 - Malignant neoplasm of left kidney, except renal pelvis (ICD-10) Diabetes mellitus with hyperglycemia, without long-term current use of insulin ?E11.65 - Type 2 diabetes mellitus with hyperglycemia (ICD-10) Chronic constipation ?K59.09 - Other constipation (ICD-10) CHAPITO (obstructive sleep apnea) ?G47.33 - Obstructive sleep apnea (adult) (pediatric) (ICD-10) Mild persistent asthma ?J45.30 - Mild persistent asthma, uncomplicated (ICD-10) Migraine ?G43.909 - Migraine, unspecified, not intractable, without status migrainosus (ICD-10) Hypertension ?I10 - Essential (primary) hypertension (ICD-10) Hiatal hernia ?K44.9 - Diaphragmatic hernia without obstruction or gangrene (ICD-10) GERD (gastroesophageal reflux disease) ?K21.9 - Gastro-esophageal reflux disease without esophagitis (ICD-10) Fibromyalgia ?M79.7 - Fibromyalgia (ICD-10) Depression ?F32.A - Depression, unspecified (ICD-10) Chronic fatigue syndrome ?G93.32 - Myalgic encephalomyelitis/chronic fatigue syndrome (ICD-10) <Valerie Miller MD - Last Filed: 10/10/24 16:49> Surgical History: Surgical History H/O: hysterectomy ?Z90.710 - Acquired absence of both cervix and uterus (ICD-10) History of cholecystectomy ?Z90.49 - Acquired absence of other specified parts of digestive tract (ICD-10) H/O section ?Z98.891 - History of uterine scar from previous surgery (ICD-10) S/P appendectomy ?Z90.49 - Acquired absence of other specified parts of digestive tract (ICD-10) <Valerie Miller MD - Last Filed: 10/10/24 16:49> Social History: Social History Smoking Status: Never smoker Do you use any of these nicotine containing products: None Second hand tobacco smoke exposure: No How often do you have a drink containing alcohol: never How often do you have six or more drinks on one occasion: Never AUDIT-C Alcohol total score: 0 Non-prescribed substance use: denies use service: No <Valerie Miller MD - Last Filed: 10/10/24 16:49> Exam Narrative Exam Narrative: Alert and oriented. No acute distress. Face symmetrical with EOM is full. Pupils equal. Neck is supple. Heart with a regular rate and rhythm at this time. Lungs are clear bilaterally. Abdomen initially shows discomfort in the right upper quadrant but re-examination while talking shows no pain at this time. Lower extremities show scant peripheral edema in the feet otherwise ankles and legs without edema. Moving all extremities. Bowel sounds are present. <Valerie Miller MD - Last Filed: 10/10/24 16:49> Const Vital Signs, click to edit/add: Vital Signs - 24 hr 10/10/24 13:24 10/10/24 16:04 Temperature 97.8 F 97.3 F L Pulse Rate [Right Pulse Oximeter] 100 64 Respiratory Rate 18 18 Blood Pressure [Left Forearm] 160/66 H 134/78 Pulse Oximetry 94 94 Oxygen Delivery Method Room Air Room Air <Valerie Miller MD - Last Filed: 10/10/24 16:49> Vital Signs - 24 hr 10/10/24 13:24 10/10/24 16:04 Temperature 97.8 F 97.3 F L Pulse Rate [Right Pulse Oximeter] 100 64 Respiratory Rate 18 18 Blood Pressure [Left Forearm] 160/66 H 134/78 Pulse Oximetry 94 94 Oxygen Delivery Method Room Air Room Air <Frankie Juan DO - Last Filed: 10/10/24 18:23> Documenting provider has reviewed patient's vital signs: yes <Valerie Miller MD - Last Filed: 10/10/24 16:49> Course Course ED Course: Differential diagnosis includes but is not limited to PE, atrial fibrillation, acute coronary event, angina, anxiety, referred abdominal pain. Will place an IV draw labs to include CBC, D-dimer comprehensive, troponin, lipase, lactate, CRP, urinalysis. 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 Plan on chest x-ray and EKG as well. <Valerie Miller MD - Last Filed: 10/10/24 16:49> Vital Signs Vital signs: Initial Vital Signs Temperature 97.8 F 10/10/24 13:24 Temperature Source Temporal Artery Scan 10/10/24 13:24 Pulse Rate 100 10/10/24 13:24 Pulse Rhythm Irregular, Regularly Irregular 10/10/24 13:24 Pulse Strength 3+ Normal 10/10/24 13:24 Respiratory Rate 18 10/10/24 13:24 Blood Pressure 160/66 H 10/10/24 13:24 Blood Pressure Mean 97 10/10/24 13:24 Blood Pressure Position Sitting 10/10/24 13:24 Pulse Oximetry 94 10/10/24 13:24 Oxygen Delivery Method Room Air 10/10/24 13:24 Vital Signs Temperature 97.8 F 10/10/24 13:24 Pulse Rate 100 10/10/24 13:24 Respiratory Rate 18 10/10/24 13:24 Blood Pressure 160/66 H 10/10/24 13:24 Pulse Oximetry 94 10/10/24 13:24 Oxygen Delivery Method Room Air 10/10/24 13:24 Temperature 97.3 F L 10/10/24 16:04 Pulse Rate 64 10/10/24 16:04 Respiratory Rate 18 10/10/24 16:04 Blood Pressure 134/78 10/10/24 16:04 Pulse Oximetry 94 10/10/24 16:04 Oxygen Delivery Method Room Air 10/10/24 16:04 <Valerie Miller MD - Last Filed: 10/10/24 16:49> Initial Vital Signs Temperature 97.8 F 10/10/24 13:24 Temperature Source Temporal Artery Scan 10/10/24 13:24 Pulse Rate 100 10/10/24 13:24 Pulse Rhythm Irregular, Regularly Irregular 10/10/24 13:24 Pulse Strength 3+ Normal 10/10/24 13:24 Respiratory Rate 18 10/10/24 13:24 Blood Pressure 160/66 H 10/10/24 13:24 Blood Pressure Mean 97 10/10/24 13:24 Blood Pressure Position Sitting 10/10/24 13:24 Pulse Oximetry 94 10/10/24 13:24 Oxygen Delivery Method Room Air 10/10/24 13:24 Vital Signs Temperature 97.8 F 10/10/24 13:24 Pulse Rate 100 10/10/24 13:24 Respiratory Rate 18 10/10/24 13:24 Blood Pressure 160/66 H 10/10/24 13:24 Pulse Oximetry 94 10/10/24 13:24 Oxygen Delivery Method Room Air 10/10/24 13:24 Temperature 97.3 F L 10/10/24 16:04 Pulse Rate 64 10/10/24 16:04 Respiratory Rate 18 10/10/24 16:04 Blood Pressure 134/78 10/10/24 16:04 Pulse Oximetry 94 10/10/24 16:04 Oxygen Delivery Method Room Air 10/10/24 16:04 <Frankie Juan DO - Last Filed: 10/10/24 18:23> MDM - Chest Pain MDM Narrative Medical decision making narrative: 1. Atypical Chest pain -initial troponin negative. Second troponin pending. No acute ST or T-wave changes. Patient has had no active chest pain while in the emergency room. 2. Atrial fibrillation rate controlled. History of Xarelto use in the past with thrombus formation. Had been switched to Coumadin and then discontinued. Cardiology discussion pending. EKG from late August showed sinus rhythm with frequent PVC. He 3. Disposition-will sign this patient out to my colleague Dr. Juan. <Valerie Miller MD - Last Filed: 10/10/24 16:49> Patient was signed out to me pending repeat troponin and cardiology consult. Repeat troponin was within normal limits. Patient is no longer in AFib in his normal sinus rhythm. [facility] the patient was on Xarelto and does appear she had a mural thrombus so was switched to Coumadin. She then had ablation was on Coumadin for several years but took herself off it as she had no further AFib. As far as we can tell she has not been in AFib since her ablation several years ago. Although she has felt her heart racing intermittently for the past couple weeks. She now sees Cardiology through [facility]. The ablation was done at [facility]. I spoke to the on-call carton inspector through [facility] in explained to him everything that occurred. At this time he wants this to try Eliquis. Also recommends a ZIO patch, cardiology follow-up and an echocardiogram. I will start the ZIO patch here and patient does have primary care follow-up set up already for this upcoming Friday where the can set up Cardiology and an echocardiogram. <Frankie Juan DO - Last Filed: 10/10/24 18:23> Medical Records Data Attestation: I reviewed the patient's medical records. <Valerie Miller MD - Last Filed: 10/10/24 16:49> Lab Data Attestation: I reviewed the patient's lab results. <Valerie Miller MD - Last Filed: 10/10/24 16:49> Labs: Lab Results 10/10/24 10/10/24 Range/Units 14:45 14:49 WBC 8.53 (4.50-11.00) K/uL RBC 4.94 (4.00-5.20) m/uL Hgb 13.0 (12.0-16.0) gm/dL Hct 41.3 (33.0-51.0) % MCV 84 (80-100) fL MCH 26 (26-34) pg MCHC 32 (32-36) gm/dL RDW Coeff of Anamika 17.1 H (11.5-15.5) % Plt Count 489 H (140-440) K/uL Neut % (Auto) 58.3 (42.0-72.0) % Lymph % (Auto) 25.8 (20-44) % Mcdowell % (Auto) 7.5 (0.0-11.0) % Eos % (Auto) 6.2 (0.0-7.0) % Baso % (Auto) 1.5 (0.0-3.0) % Neut # (Auto) 4.97 (1.7-7.0) K/uL Lymph # (Auto) 2.20 (0.90-2.90) K/uL Mcdowell # (Auto) 0.60 (0.00-0.90) K/UL Eos # (Auto) 0.53 H (0.00-0.50) K/uL Baso # (Auto) 0.13 (0.00-0.30) K/uL Abs Immat Gran (auto) 0.06 (0.00-0.30) K/uL Imm/Tot Granulo (auto) 0.7 % D-Dimer Quant (PE/DVT) < 0.27 (0.00-0.50) ug/ml Sodium 139 (135-149) mmol/L Potassium 3.9 (3.6-5.1) mmol/L Chloride 103 (96-114) mmol/L Carbon Dioxide 29 (20-32) mmol/L Anion Gap 7 (7-15) mEq/L BUN 13 (7-30) mg/dL Creatinine 0.8 (0.5-1.5) mg/dL Estimated Creat Clear 49.12 Estimated GFR 81 ml/min Glucose 153 H (60-115) mg/dL Calcium 9.2 (8.4-10.6) mg/dL Total Bilirubin 0.6 (0.1-1.5) mg/dL AST 33 (12-35) U/L ALT 38 H (4-35) U/L Alkaline Phosphatase 93 (40-150) U/L C-Reactive Protein 0.8 (0.5-1.0) mg/dL Total Protein 8.1 (6.0-8.3) g/dL Albumin 4.6 (3.3-5.0) g/dL Urine Color Yellow (Yellow) Urine Appearance Clear (Clear) Urine pH 7.5 (5.0-8.5) Ur Specific [place] 1.015 (1.000-1.030) Urine Protein 1+ A (Negative) Urine Glucose (UA) Negative (Negative) Urine Ketones Negative (Negative) Urine Blood Negative (Negative) Urine Nitrite Negative (Negative) Urine Bilirubin Negative (Negative) Urine Urobilinogen 0.2 (0.2-1.0) Ur Leukocyte Esterase Negative (Negative) Urine RBC 0-2 (0-2) Urine WBC 0-2 (0-5) Ur Squamous Epith Cells Few (None-Few) Urine Bacteria Few A (None) SARS-CoV-2 (PCR) Negative SARS-CoV-2 (Negative) Influenza Type A (PCR) Negative PCR FLU A (Negative) Influenza Type B (PCR) Negative PCR FLU B (Negative) RSV (PCR) Negative PCR RSV (Negative) POC Troponin I 0.00 L (0.01-0.04) ng/ml <Valerie Miller MD - Last Filed: 10/10/24 16:49> Lab Results 10/10/24 10/10/24 Range/Units 14:45 14:49 WBC 8.53 (4.50-11.00) K/uL RBC 4.94 (4.00-5.20) m/uL Hgb 13.0 (12.0-16.0) gm/dL Hct 41.3 (33.0-51.0) % MCV 84 (80-100) fL MCH 26 (26-34) pg MCHC 32 (32-36) gm/dL RDW Coeff of Anamika 17.1 H (11.5-15.5) % Plt Count 489 H (140-440) K/uL Neut % (Auto) 58.3 (42.0-72.0) % Lymph % (Auto) 25.8 (20-44) % Mcdowell % (Auto) 7.5 (0.0-11.0) % Eos % (Auto) 6.2 (0.0-7.0) % Baso % (Auto) 1.5 (0.0-3.0) % Neut # (Auto) 4.97 (1.7-7.0) K/uL Lymph # (Auto) 2.20 (0.90-2.90) K/uL Mcdowell # (Auto) 0.60 (0.00-0.90) K/UL Eos # (Auto) 0.53 H (0.00-0.50) K/uL Baso # (Auto) 0.13 (0.00-0.30) K/uL Abs Immat Gran (auto) 0.06 (0.00-0.30) K/uL Imm/Tot Granulo (auto) 0.7 % D-Dimer Quant (PE/DVT) < 0.27 (0.00-0.50) ug/ml Sodium 139 (135-149) mmol/L Potassium 3.9 (3.6-5.1) mmol/L Chloride 103 (96-114) mmol/L Carbon Dioxide 29 (20-32) mmol/L Anion Gap 7 (7-15) mEq/L BUN 13 (7-30) mg/dL Creatinine 0.8 (0.5-1.5) mg/dL Estimated Creat Clear 49.12 Estimated GFR 81 ml/min Glucose 153 H (60-115) mg/dL Calcium 9.2 (8.4-10.6) mg/dL Total Bilirubin 0.6 (0.1-1.5) mg/dL AST 33 (12-35) U/L ALT 38 H (4-35) U/L Alkaline Phosphatase 93 (40-150) U/L C-Reactive Protein 0.8 (0.5-1.0) mg/dL Total Protein 8.1 (6.0-8.3) g/dL Albumin 4.6 (3.3-5.0) g/dL Urine Color Yellow (Yellow) Urine Appearance Clear (Clear) Urine pH 7.5 (5.0-8.5) Ur Specific [place] 1.015 (1.000-1.030) Urine Protein 1+ A (Negative) Urine Glucose (UA) Negative (Negative) Urine Ketones Negative (Negative) Urine Blood Negative (Negative) Urine Nitrite Negative (Negative) Urine Bilirubin Negative (Negative) Urine Urobilinogen 0.2 (0.2-1.0) Ur Leukocyte Esterase Negative (Negative) Urine RBC 0-2 (0-2) Urine WBC 0-2 (0-5) Ur Squamous Epith Cells Few (None-Few) Urine Bacteria Few A (None) SARS-CoV-2 (PCR) Negative SARS-CoV-2 (Negative) Influenza Type A (PCR) Negative PCR FLU A (Negative) Influenza Type B (PCR) Negative PCR FLU B (Negative) RSV (PCR) Negative PCR RSV (Negative) POC Troponin I 0.00 L (0.01-0.04) ng/ml <Frankie Juan DO - Last Filed: 10/10/24 18:23> Imaging Data Chest x-ray: Attestation: I have reviewed the pertinent imaging results. <Valerie Miller MD - Last Filed: 10/10/24 16:49> My impression: I do not note any infiltrates. <Valerie Miller MD - Last Filed: 10/10/24 16:49> Radiologist's impression: FINDINGS: Unchanged cardiomediastinal contours. No lung consolidation. No sign of pleural effusion. No pneumothorax. No acute osseous or soft tissue findings. IMPRESSION: No lung consolidation. <Valerie Miller MD - Last Filed: 10/10/24 16:49> ECG Data Attestation: I personally reviewed and interpreted this ECG as follows: <Valerie Miller MD - Last Filed: 10/10/24 16:49> ECG interpretation date: 10/10/24 <Valerie Miller MD - Last Filed: 10/10/24 16:49> Interpretation: EKG by my read shows probable atrial fibrillation at a rate of 109. She does have occasional PVC. T-wave abnormality. <Valerie Miller MD - Last Filed: 10/10/24 16:49> EKG by my read shows probable atrial fibrillation at a rate of 109. She does have occasional PVC. T-wave abnormality. Repeat EKG done at 17:07 shows normal sinus rhythm with PVC and a rate of 69 beats per minute, normal intervals, normal axis, no ST or T-wave abnormalities. <Frankie Juan DO - Last Filed: 10/10/24 18:23> Discharge Plan Discharge Clinical Impression: Atypical chest pain, Paroxysmal A-fib <Valerie Miller MD - Last Filed: 10/10/24 16:49> Patient Disposition: Home, Self-Care <Valerie Miller MD - Last Filed: 10/10/24 16:49> Condition: Stable <Valerie Miller MD - Last Filed: 10/10/24 16:49> Instructions: A-fib (Atrial Fibrillation) (ED) <Valerie Miller MD - Last Filed: 10/10/24 16:49> Additional Instructions: With a Zio patch for the next 14 days and all instruction somewhat you after that. Follow up with the primary care provider as scheduled for Friday and speak to them about the Eliquis you were started on along with the need for cardiology follow-up and an echocardiogram. Please return to the emergency department for any new or worsening symptoms. <Valerie Miller MD - Last Filed: 10/10/24 16:49> Prescriptions: New Eliquis 5 mg tablet 5 mg PO BID Qty: 60 0RF No Action lactulose 10 gram/15 mL solution PO acetaminophen 325 mg tablet 650 mg PO Q6H PRN (Reason: pain) amitriptyline 50 mg tablet 50 mg PO HS amlodipine 10 mg tablet 10 mg PO HS budesonide 0.5 mg/2 mL suspension for nebulization 0.5 mg inhalation BID glipizide 5 mg tablet 5 mg PO DAILY levothyroxine 25 mcg tablet 25 mcg PO DAILY metoprolol succinate 50 mg tablet extended release 24 hr 50 mg PO DAILY simvastatin 20 mg tablet 20 mg PO HS antacid suspension See Rx Instructions PO DAILY PRN Rx Instructions: 15-30ml orally daily PRN; rizatriptan 5 mg tablet 5 mg PO DAILY PRN Rx Instructions: may repeat once after 2 hours albuterol sulfate [Ventolin HFA] 90 mcg/actuation HFA aerosol inhaler 2 puff INHALATION Q4H PRN diphenhydramine HCl [Banophen] 25 mg capsule 25 mg PO Q8H PRN (Reason: allergic symptoms) Rx Instructions: 1-2 caps prn hydroxyzine HCl 25 mg tablet 25 mg PO HS PRN (Reason: anxiety) nitroglycerin 0.4 mg tablet, sublingual 0.4 mg sublingual Q5M PRN Rx Instructions: max 3 tabs within 15 minutes naproxen sodium [All Day Pain Relief] 220 mg tablet 220 mg PO .once weekly PRN omeprazole 40 mg capsule,delayed release(DR/EC) 40 mg PO DAILY Qty: 14 0RF aspirin 325 mg tablet,delayed release (DR/EC) 325 mg PO DAILY escitalopram oxalate 5 mg tablet 5 mg PO DAILY escitalopram oxalate 10 mg tablet 10 mg PO DAILY calcium carbonate 200 mg calcium (500 mg) tablet,chewable 200 mg PO Q4H PRN Rx Instructions: Chew 215 mg of calcium daily as needed for indigestion or heartburn. <Valerie Miller MD - Last Filed: 10/10/24 16:49> Follow Up/Referrals: Kandace Mckeon DO [Primary Care Provider, Family Practice] <Valerie Miller MD - Last Filed: 10/10/24 16:49> Stand Alone Forms: [facility] Info Instructions <Valerie Miller MD - Last Filed: 10/10/24 16:49>
--- OUTSIDE RECORDS SUMMARY | 2024-10-10 14:22 | XMS_ITS | CCD ---
Author Organization Unknown Care Team Providers Care Behavioral Instructor Name Role Phone [employer] Ax Developer, [place] Primary Care Provider Unava ilable Unavailable Chronic Care Management Unavaila ble Summary Purpose DataExchange Insurance Providers Payer name Policy type / Coverage type Covered libertarian ID Effective Begin Date Effective End Date Medicare [place] Medicare Part B [id number] Unknown Unknown U[employer] Medicare Part B [id number] Unknown Unknown Family History Family History data not found Medication Administered No Medication Administered data Reason For Visit No Reason For Visit data
--- OUTSIDE RECORDS SUMMARY | 2024-10-10 14:22 | XMS_ITS | CCD ---
Author Organization Unknown Care Team Providers Care Spring Tester Name Role Phone Staff Nurse, [place] Primary Care Provider Unava ilable Unavailable Chronic Care Management Unavaila ble Summary Purpose DataExchange Insurance Providers Payer name Policy type / Coverage type Covered constitution party ID Effective Begin Date Effective End Date [place] Part B [id number] Unknown Unknown U[employer] Medicare Part B [id number] Unknown Unknown Family History Family History data not found Medication Administered No Medication Administered data Reason For Visit No Reason For Visit data
--- NOTE | 2024-10-10 14:26 | CRLHL7_ITS ---
For Patients: As a result of the Century Cures Act, medical imaging exams and procedure reports are released immediately into your electronic medical record. You may view this report before your referring provider. If you have questions, please contact your health care provider. INDICATION: Chest pain. TECHNIQUE: Chest 1 view. COMPARISON: Chest radiographs dated 09/12/2024. FINDINGS: Unchanged cardiomediastinal contours. No lung consolidation. No sign of pleural effusion. No pneumothorax. No acute osseous or soft tissue findings. IMPRESSION: No lung consolidation. Dictated by Cody Bush MD @ 10/10/2024 3:39:29 PM (Electronically Signed)
[2024-10-10 15:06] LABS: Hematocrit 41.3 % (33.0-51.0); Hemoglobin* 13.0 gm/dL (12.0-16.0); Immature Granulocytes Abs Auto 0.06 K/uL (0.00-0.30); Immature Granulocytes Pct Auto 0.7 %; Lymphocytes Absolute Auto 2.20 K/uL (0.90-2.90); Mean Corpuscular HGB Conc 32 gm/dL (32-36); Mean Corpuscular Hemoglobin 26 pg (26-34); Mean Corpuscular Volume 84 fL (80-100); RDW Coefficient of Variation % 17.1 % (11.5-15.5); Red Blood Count 4.94 m/uL (4.00-5.20); White Blood Count* 8.53 K/uL (4.50-11.00)
[2024-10-10 15:10] LABS: Appearance Urine Clear (Clear)
[2024-10-10 15:16] LABS: Slide Review Reflex No
[2024-10-10 15:17] LABS: Troponin, Point-of-Care* 0.00 ng/ml (0.01-0.04)
[2024-10-10 15:19] LABS: Albumin* 4.6 g/dL (3.3-5.0); Chloride* 103 mmol/L (96-114); Potassium* 3.9 mmol/L (3.6-5.1); Sodium* 139 mmol/L (135-149)
[2024-10-10 15:22] LABS: Alanine Aminotransferase* 38 U/L (4-35); Alkaline Phosphatase* 93 U/L (40-150); Aspartate Amino Transferase* 33 U/L (12-35); Bilirubin Total* 0.6 mg/dL (0.1-1.5); Blood Urea Nitrogen* 13 mg/dL (7-30); Carbon Dioxide* 29 mmol/L (20-32); Creatinine* 0.8 mg/dL (0.5-1.5); Est. Creatinine Clearance* 49.12; Estimated Glomerular Filt Rate 81 ml/min
[2024-10-10 15:23] LABS: Anion Gap 7 mEq/L (7-15); Calcium* 9.2 mg/dL (8.4-10.6); Glucose* 153 mg/dL (60-115); Total Protein* 8.1 g/dL (6.0-8.3)
--- OUTSIDE RECORDS SUMMARY | 2024-10-10 15:37 | XMS_ITS | CCD ---
Author Organization Unknown Care Team Providers Care Thread Spinner Name Role Phone Gambling Box Person, [place] Primary Care Provider Unava ilable Unavailable Chronic Care Management Unavaila ble Summary Purpose DataExchange Insurance Providers Payer name Policy type / Coverage type Covered democrat ID Effective Begin Date Effective End Date [place] Part B [id number] Unknown Unknown [employer] Medicare Part B [id number] Unknown Unknown Family History Family History data not found Medication Administered No Medication Administered data Reason For Visit No Reason For Visit data
--- OUTSIDE RECORDS SUMMARY | 2024-10-10 15:37 | XMS_ITS | CCD ---
Author Organization Unknown Care Team Providers Care Sugar Plantation Manager Name Role Phone Type[employer] [place], [place] Primary Care Provider Unava ilable Unavailable Chronic Care Management Unavaila ble Summary Purpose DataExchange Insurance Providers Payer name Policy type / Coverage type Covered green party ID Effective Begin Date Effective End Date Medicare [place] Medicare Part B [id number] Unknown Unknown [employer] Medicare Part B [id number] Unknown Unknown Family History Family History data not found Medication Administered No Medication Administered data Reason For Visit No Reason For Visit data
[2024-10-10 15:46] LABS: PCR FLU A Negative PCR FLU A (Negative); PCR FLU B Negative PCR FLU B (Negative); PCR RSV Negative PCR RSV (Negative); SARS PCR* Negative SARS-CoV-2 (Negative)
[2024-10-10 16:05] LABS: D Dimer Quantitative* < 0.27 ug/ml (0.00-0.50)
== END 2024-10-10 19:14 | disposition home or self-care (01) ==
PROVIDERS: Family Medicine; Emergency Provider Student in an Organized Health Care Education/Training Program; PCP Family Medicine
DX: R07.9 Chest pain, unspecified (principal); I48.0 Paroxysmal atrial fibrillation
CPT/HCPCS: 36415; 71045; 80053; 81001; 84484; 85025; 85379; 86140; 87086; 87631; 93005; 93246; 94761; 99284; 99285

== ENCOUNTER 2024-12-18 02:41 | Outpatient (CLI) | payer OTHER, SELFPAY | END 2024-12-18 02:42 | disposition home or self-care (01) | LOC: AMB 12-21 13:21 | PROVIDERS: PCP Family Medicine; Visit Provider Emergency Medicine | DX: R07.89 Other chest pain (principal) | CPT/HCPCS: A0425; A0427 ==

== ENCOUNTER 2024-12-18 03:11 | Emergency (ER) | payer OTHER, SELFPAY ==
--- OUTSIDE RECORDS SUMMARY | 2024-10-11 23:30 | XMS_ITS | Continuity of Care Document ---
Author Organization [facility] Address [address] [address] [place] [address] Phone Care Team Providers Care Cable Maintainer Name Role Phone No Information Unavailable Unavailable [...] Encounter [facility] [address] [address], [place], [id number], [place] tel:[phone] No Information 5 No Information [facility], [address] [address], [place], [id number], [place] tel:[phone] [facility] No Information 5 Cain Pearson. [address] [facility], [address], [place], [place], [id number], [place]. tel:[phone] Referring Provider: Referral Self, USE FOR SELF REFERRALS. Offic/outpt E&m New Mod-hi [facility], [address] [address], [place], [id number], [place] tel:[phone] [facility] GI Symptoms or Concerns (chief complaint) Irregular bowel habitsAbdominal pain, unspecified abdominal locationMelenaHe artburnDysphagia , unspecified type Josiah Butler. [address] [facility], [facility] [address], [place], [place], [id number], [place]. tel:[phone] Referring Provider: Kandace Mckeon MD, [address] [place] [address], [address]. tel:[phone] [facility], [address] [address], [place], [id number], [place] tel:[phone] No Information 5 No Information Referring Provider: Kandace Mckeon MD, [address] [place] [address], [address]. tel:[phone] Family History Family Member Type Diagnosis Age [...] Pneumococcal conjugate vacci ne 20-valent (PCV20), polysaccharide [id number] conjugate, adjuvant, preservative free administered Note: [facility] [...] every 5 days, with stools varying between [place] type 3, 5, and 6 stools. She [...] last colonoscopy was 3 years ago through [place], I unfortunately do not have those records [...] portal or calling my patient coordinator at [phone] Related to Irregular bowel habits Assessments Type Assessment Date No Information Patient Care Teams Name Effective Dates (start - stop) Status Members No Information
--- OUTSIDE RECORDS SUMMARY | 2024-10-11 23:30 | XMS_ITS | Continuity of Care Document ---
Author Organization [facility] Address [address] [address] [place] [address] Phone Care Team Providers Care Edge Bander Operator Name Role Phone No Information Unavailable Unavailable [...] Encounter [facility] [address] [address], [place], [id number], [place] tel:[phone] No Information 5 No Information [facility], [address] [address], [place], [id number], [place] tel:[phone] [facility] No Information 5 Cain Pearson. [address] [facility], [address], [place], [place], [id number], [place]. tel:[phone] Referring Provider: Referral Self, USE FOR SELF REFERRALS. Offic/outpt E&m New Mod-hi [facility], [address] [address], [place], [id number], [place] tel:[phone] [facility] GI Symptoms or Concerns (chief complaint) Irregular bowel habitsAbdominal pain, unspecified abdominal locationMelenaHe artburnDysphagia , unspecified type Josiah Butler. [address] [facility], [facility] [address], [place], [place], [id number], [place]. tel:[phone] Referring Provider: Kandace Mckeon MD, [address] [place] [address], [address]. tel:[phone] [facility], [address] [address], [place], [id number], [place] tel:[phone] No Information 5 No Information Referring Provider: Kandace Mckeon MD, [address] [place] [address], [address]. tel:[phone] Family History Family Member Type Diagnosis Age [...] Pneumococcal conjugate vacci ne 20-valent (PCV20), polysaccharide [id number] conjugate, adjuvant, preservative free administered Note: [facility] [...] Registry Payers Payer name Insurance type Covered democrat ID Authoriza tion(s) No Information Social History [...] every 5 days, with stools varying between [place] type 3, 5, and 6 stools. She [...] last colonoscopy was 3 years ago through [place], I unfortunately do not have those records [...] portal or calling my patient coordinator at [phone] Related to Irregular bowel habits Assessments Type Assessment Date No Information Patient Care Teams Name Effective Dates (start - stop) Status Members No Information
--- OUTSIDE RECORDS SUMMARY | 2024-12-18 03:13 | XMS_ITS | Clinical Summary ---
Author Organization [facility] Address [address] [place] [id number] Care Team Providers Care Child Protective Investigator Name Role Phone Kandace Mckeon Primary Care Provider Parish Ruffin MD Unavailable Unavailable Kwaku Wild MD Unavailable [phone] Kari Hunt PhD, LP Unavailable [phone] Allergies Active Allergy Reactions Criticality Noted Date [...] as needed. 0 020 Active medication order Irina ns:HTN (hypertension) Resident is to self check blood pressure once weekly or as needed. 1 Each 020 Active nystatin powder (MYCOSTATIN) powderIndications :Tinea cruris Apply 1 Strip topically to affected area(s) 3 times daily. 60 g 020 Active aspirin-acetamino phen-caffeine (EXCEDRIN EX STR) 250-250-65 mgIndications:Omar gutierrez without aura and without status migrainosus, not [...] 16MG IN 24 HOURS* 28 Capsule 12 Active polyvinyl alcohol-povidone (Artificial Tears,pvalch-povi d,) 0.5-0.6 % ophthalmic solutionIndicatio ns:Chronically dry eyes, bilateral INSTILL 1 DROP IN BOTH EYES TWICE DAILY NEEDED 15 mL 2 024 Active lancets (Accu-Chek Softclix Lancets)Indicatio ns:Type [...] Dry Eyes. 10 mL 6 024 Active Methyl Salicylate-Mentho l (Icy Hot) 30-10 % topical creamIndications: Arthralgia, unspecified joint APPLY TOPICALLY 1 GRAM TOPICALLY EVERY 2 HOURS NEEDED 85 g 11 024 Active amLODIPine (NORVASC) 10 mg tabletIndications :HTN (hypertension) TAKE 1 TABLET BY MOUTH EVERY NIGHT AT BEDTIME 28 Tablet 12 024 Active aspirin enteric coated (ECOTRIN) 325 mg [...] FOR PAIN 60 Tablet 5 025 Active simvastatin 20 mg tabletIndications :Mixed [...] 25 mcg) 28 Tablet 11 025 Active levothyroxine 25 mcg tabletIndications :Hypothyroidism (acquired) TAKE 1 TABLET BY MOUTH DAILY @NOON 90 Tablet 2 025 Active omeprazole 40 mg Delayed-Release capsuleIndication s:Hiatal hernia with GERD,Chronic GERD TAKE 1 CAPSULE BY MOUTH DAILY 90 Capsule 2 025 Active magnesium oxide 400 mg tabletIndications :Chronic constipation TAKE 1 TABLET BY MOUTH EVERY NIGHT AT BEDTIME 28 Tablet 025 Active rizatriptan (MAXALT) 5 mg tabletIndications :Migraine without aura and without status migrainosus, not intractable TAKE 1 TABLET BY MOUTH DAILY NEEDED *GIVE AT A MINIMUM OF 2 HRS APART*MAX OF 30MG PER 24 HRS* 12 Tablet 5 025 Active clotrimazole (Antifungal (Clotrimazole)) 1 % creamIndications: Tinea pedis of left foot APPLY TO AFFECTED AREA(S) TWICE DAILY NEEDED FOR YEAST RASH *PATIENT SELF-ADMINISTER S* 28.4 g 3 025 Active ferrous sulfate 325 mg delayed release tabletIndications :Iron deficiency anemia, unspecified iron deficiency anemia type TAKE 1 TABLET BY MOUTH DAILY WITH A MEAL 90 Tablet 3 025 Active escitalopram oxalate (LEXAPRO) 10 mg tabletIndications :Depression with anxiety Take 1.5 Tablets (15 mg) by mouth once daily in the morning. 135 Tablet 025 Active budesonide (PULMICORT RESPULES) 0.5 mg/2 mL neb suspensionIndicat ions:Mild persistent asthma without complication (HC) INHALE 1 AMPULE BY MOUTH VIA NEBULIZER TWICE DAILY 360 mL 025 Active NebulizerIndicati ons:Mild persistent asthma without complication (HC) Nebulizer, reuseable neb kit x 1, mask x 1, filters x 1. Frequency of use: twice daily; Medication: budesondie Length of need: 99 months 1 Each 2 Active NebulizerIndicati ons:Mild persistent asthma without complication (HC) As directed 1 Each two times daily. 60 Each 10 Active glipiZIDE (GLUCOTROL) 10 mg tabletIndications :Uncontrolled type 2 diabetes mellitus with hyperglycemia (HC) TAKE 1 TABLET BY MOUTH DAILY BEFORE A MEAL 90 Tablet Active Eliquis 5 mg tabletIndications :Paroxysmal atrial fibrillation (HC) TAKE 1 TABLET BY MOUTH TWICE DAILY 60 Tablet 1 Active NebulizerIndicati ons:Mild persistent asthma without complication (HC) Nebulizer, reuseable neb kit x 1, mask x 1, filters x 1. Frequency of use: twice daily; Medication: budesondie Length of need: 99 months 1 Each 024 2024 Discontinued(R eorder (E-cancel not sent)) NebulizerIndicati ons:Mild persistent asthma without complication (HC) USE DIRECTED TWICE DAILY 60 Each 10 025 2024 Discontinued(R eorder (E-cancel not sent)) glipiZIDE 10 mg tabletIndications :Uncontrolled type 2 diabetes mellitus with hyperglycemia (HC) TAKE 1 TABLET BY MOUTH DAILY BEFORE A MEAL 60 Tablet 025 2024 Discontinued apixaban (ELIQUIS) 5 mg tabletIndications :Paroxysmal atrial fibrillation (HC) Take 1 Tablet (5 mg) by mouth two times daily. 60 Tablet 1 025 2024 Discontinued Active Problems Patient Care [...] Encounters Date Type Department Care Team Description 12/07/2024 Refill [facility] [address] [place] [address] Kandace Mckeon DO Refill Request (Glipizide, Eliquis) 12/06/2024 3:55 PM CDT Office Visit [facility] [address] [place] [address] Kandace Mckeon DO Depression; Anxiety 12/06/2024 Travel 12/02/2024 1:00 PM CDT Office Visit [facility] [address] [place] [address] Mark Barrow, [facility] Visit 12/02/2024 Travel 12/01/2024 Telephone [facility] [address] [place] [address] Kandace Mckeon DO Anxiety (Depression and anxiety. Didn't know Dr. Mckeon was sick and out of clinic today) 11/12/2024 Patient Out[address] [facility] Care Management - Care Management Navigation/[facility] [address] [place] [address] Katarina López PATIENT SERVICES REP [facility]-Community Resource Navigation 11/11/2024 Refill [facility] [address] [place] [address] Kandace Mckeon DO Refill Request (Budesonide) 11/08/2024 Refill [facility] [address] [place] [address] Kandace Mckeon DO Refill Request (Escitalopram Oxalate) 11/01/2024 11:30 AM CDT Office Visit [facility] [address] [place] [address] Cristy Dickinson, PhD, LP Neuropsychological Assessment 11/01/2024 Travel 10/25/2024 Orders Only [facility] [address] [place] [address] Oralia Sesay 1 scan: (1-Ord) ZIO 10/14/2024 Refill [facility] [address] [place] [address] Kandace Mckeon, DO Refill Request (Ferrous Sulfate) 10/13/2024 9:50 AM CDT Office Visit [facility] [address] [place] [address] Kandace Mckeon DO Abdominal Pain (stomach pain after BM); ER Follow up (chest pain- Afib?) 10/13/2024 Telephone [facility] [address] [place] [address] Jonathan Khan MD Screening 10/13/2024 Travel 10/11/2024 Refill [facility] [address] [place] [address] Kandace Mckeon, DO Refill Request (Rizatriptan) 10/10/2024 Orders Only [facility] Scanner 1 scan: (1-Ord) [facility], NORMAL , 10/10/2024 10/10/2024 Orders Only [facility] Scanner 1 scan: (1-Ord) [facility], ABNORMAL, 10/10/2024 10/10/2024 Orders Only [facility] Scanner 1 scan: (1-Ord) [facility], CHEST 1V PORTABLE, 10/10/2024 10/08/2024 Refill [facility] [address] [place] [address] Kandace Mckeon, DO Refill Request (Antifungal (Clotrimazole)) 10/06/2024 Refill [facility] [address] [place] [address] Kandace Mckeon, DO Refill Request (Rizatriptan) 09/21/2024 Orders Only [facility] Scanner 1 scan: (1-Ord) [facility], 09/21/2024 from Last 3 Months Immunizations Immunization Administration [...] Answer Date Recorded PHQ-2 TOTAL SCORE 2 12/06/2024 Social Connections Answer Date Recorded Do you often feel lonely or isolated from those around you? 4 10/13/2024 Financial Resource Strain Answer Date R ecorded Difficulty of Paying Living Expenses 2 10/13/2024 Difficulty of Paying Living Expenses 1 10/13/2024 Food Insecurity Answer Date Recorded Do you worry your food will run out before you are able to buy more? 2 10/13/2024 Transportation Needs Answer Date Record ed Does lack of transportation keep you from medica l appointments? 1 10/13/2024 Does lack of transportation keep you from work, meetings or getting things that you need? 2 10/13/2024 Housing Stability Answer Date Recorded What is your housing situation today? 1 10/13/2024 Utilities Answer Date Recorded Do you have trouble paying f or utilities (for example, heat, electricity, water, phone)? 1 10/13/2024 Comments No Sex and Gender Information Value Date Recorded Sex Assigned at Not on file Legal Sex Female 5:26 AM DIVIDEND DEPOSIT VOUCHER CLERK Gender Identity Not on file Sexual Orientation Not on file Obstetrics History Last Filed Vital Signs Vital Sign Reading Time Taken Comments Blood Pressure 143/79 12/06/2024 4:00 PM CDT Pulse 91 12/06/2024 4:00 PM CDT Temperature 36.8 C (98.2 F) 01/27/2023 3:09 PM DIVIDEND DEPOSIT VOUCHER CLERK Respiratory Rate 16 07/31/2022 3:18 PM CDT Oxygen Saturation 95% 12/06/2024 4:00 PM CDT Inhaled Oxygen Concentration - - Weight 92.5 kg (204 lb) 12/06/2024 4:00 PM CDT Height 163 cm (5' 4.17) 06/12/2022 2:26 PM CDT Body Mass Index 34.83 06/12/2022 2:26 PM CDT Plan of Treatment Upcoming Encounters Date Type Department Care Team (Late st Contact Info) Description 12/28/2024 2:45 PM CDT Ancillary Procedure [facility] [address] [place] [address] Health Maintenance Due Date Last Done Comments Zoster (shingles) series for age 50+ (1 of 2) 2007 RSV vaccine for adults or (1 - Risk 60-74 years 1-dose series) 2017 BMI (ht and wt on same day) for age 18+ 06/13/2023 06/12/2022, 08/08/2021, 09/04/2020, Additional history exists Medicare Wellness for age 65+ 06/13/2023 06/12/2022, 10/11/2015, 10/07/2014, Additional history exists COVID-19 vaccine series (2024- season) 2024 01/19/2021, 05/04/2020, 04/06/2020 Influenza Vaccine (#1) 2024 , 01/03/2023, 01/03/2023, Additional history exists Mammogram for age 45-75 07/21/2025 07/22/19 25, 04/30/2023, 11/13/2021, Additional history exists Depression screening for age 12+ 12/06/2025 12/06/2024, 12/02/2024, 04/16/2024, Additional history exists Fecal testing sDNA-FIT (Cologuard) [...] providers by 06/21/17 General Yes Reny Pratt, STOCK PREPARATION SUPERVISOR Note: - appointment with dental provider by 06/21/17 - appointment for DM eye exam and new eyeglasses by 06/21/17 Healthcare Directive General Yes Reny Pratt, STOCK PREPARATION SUPERVISOR Note: - work on completing healthcare directive by end of ACT episode Procedures Procedure Name Priority Date/Time Associated Diagnosis Comments SCAN-ELECTROCARDIOG GRACIELA EKG 10/10/2024 12:00 AM CDT SCAN-ELECTROCARDIOG GRACIELA EKG 10/10/2024 12:00 AM CDT EXTENDED HOLTER Routine 10/10/2024 Chest pain, unspecified SCAN-RADIOLOGY REPORT 10/10/2024 12:00 AM CDT SCAN-EYE EXAM 09/21/2024 12:00 AM CDT XR MAMMO CRYSTAL BILAT SCREEN Routine 07/21/2024 1:33 PM CDT Visit for screening mammogram XR DXA BONE DENSITY 2 SITES AXIAL Routine 07/19/2024 1:06 PM CDT Post-menopausal LIPID PANEL W REFLEX MEASURED LDL Routine 04/16/2024 12:05 PM DIVIDEND DEPOSIT VOUCHER CLERK HTN (hypertension) Controlled type 2 diabetes mellitus without complication, without long-term current use of insulin (HC) SDNA-FIT EXTERNAL (COLOGUARD) Routine 12/11/2022 2:15 PM CDT Screening for colon cancer ANTI HCV Routine 10/07/2014 4:00 PM CDT Need for hepatitis C screening test from Last 3 Months or Most Recently Relevant to Health Maintenance Results * EXTENDED HOLTER (10/10/2024) us Frankie Juan DO CARDIAC SERVICES ORD Fin al Result * SCAN-RADIOLOGY REPORT (10/10/2024 12:00 AM CDT) Anatomical Region Laterality Modality Other us Scanner OTHER Final Result * SCAN-ELECTROCARDIOGRAM EKG (10/10/2024 12:00 AM CDT) Only the most recent of2 resultswithin the time period is included. us Scanner OTHER Final Result * SCAN-EYE EXAM (09/21/2024 12:00 AM CDT) us Scanner OTHER Final Result * XR MAMMO CRYSTAL BILAT SCREEN (07/21/2024 [...] care provider. XR MAMMO CRYSTAL BILAT SCREEN [[id number]] CLINICAL HISTORY: This is an asymptomatic 69 y.o. patient. INDICATION FOR EXAM: Mammogram Screening. TECHNIQUE: CC and MLO views were obtained. This study was evaluated with the assistance of Computer-Aided Detection. Breast Tomosynthesis was used in interpretation. COMPARISON FILM: Yes 04/30/23 [facility] 11/13/21 [facility] FINDINGS: There are scattered areas of fibroglandular density. There are no dominant masses, suspicious micro calcifications or areas of architectural distortion. us Kandacejayden Donovan Detert DO MAMMO Final Resul t [...] recommended in 3-5 years. Christina Flores PA-C [facility] 07/23/2024 Narrative 07/23/2024 4:36 PM CDT For Patients: Results are automatically released to your [facility] ([employer]) account once available, in compliance with federal regulations. This means that you may see your results before your provider has had a chance to review them. Please allow 2-3 business days for your provider to comment on the results. XR DXA Bone Mineral Density (BMD) EXAM LOCATION: [address] [address] PATIENT NAME: Juni Metcalf DATE OF : [...] two scanners are made by the same faculty research physician. PROCEDURE: Dual-energy x-ray absorptiometry performed with routine [...] W REFLEX MEASURED LDL (04/16/2024 12:05 PM DIVIDEND DEPOSIT VOUCHER CLERK) [facility] [address] CHOLESTEROL, TOTAL 202(H) <200 mg/dL [facility] HDL CHOLESTEROL 56 > OR = 50 mg/dL [facility] TRIGLYCERIDES 137 <150 mg/dL [facility] LDL-CHOLESTEROL 121(H) mg/dL (calc) [facility] Comment: Reference range: <100 Desirable range <100 mg/dL for primary prevention; <70 mg/dL for patients with CHD or diabetic patients with > or = 2 CHD risk factors. LDL-C is now calculated using the Bertha calculation, which is a validated novel method providing better accuracy than the Friedewald equation in the estimation of LDL-C. Jonathan MONROY et al. MORAIMA. 2013;310(19): 9287-8451 (http://education.VMTurbo/faq/QFO455) CHOL/HDLC RATIO 3.6 <5.0 (calc) [facility] NON HDL CHOLESTEROL 146(H) <130 mg/dL (calc) [facility] Comment: For patients with diabetes plus 1 major ASCVD risk factor, treating to a non-HDL-C goal of <100 mg/dL (LDL-C of <70 mg/dL) is considered a therapeutic option. Blood BLOOD SPECIMEN / Unknown 04/16/2024 12:05 PM DIVIDEND DEPOSIT VOUCHER CLERK 04/16/2024 12:06 PM DIVIDEND DEPOSIT VOUCHER CLERK Kandace Donovan Linda DO CHEMISTRY Final Resul t [facility] [employer] ([place]) [facility] [address] [place] [address], [facility] [address] [place] [address] * SDNA-FIT EXTERNAL (COLOGUARD) (12/11/2022 2:15 PM CDT) NONINV COLON CA DNA+OCC BLD SCRN STL-IMP Negative Negative 12/17/2022 9:02 PM CDT [facility] (CLIA #:[id number]) Comment: NEGATIVE TEST RESULT. A negative Cologuard [...] Lucas et al, N Engl J Med 2014;370(14):0250-1223) The normal value (reference range) for this assay is negative. COLOGUARD RE-SCREENING RECOMMENDATION: Periodic colorectal cancer screening is an important part of preventive healthcare for asymptomatic individuals at average risk for colorectal cancer. Following a negative Cologuard result, the [place] [employer] Society and U.S. Multi-Society Task Force screening guidelines recommend a Cologuard re-screening interval of 3 years. References: [place] [employer] Guideline for Colorectal Cancer Screening: https://www.cancer.org/cancer/qwfag-fxiahk-tgztcx/fwvgbdyae-wbyxktztf-ulyvock/ac s-rec ommendations.html.; Harish DK, Gold CR, Skyler MirandaK, Colorectal Cancer Screening: Recommendations for Physicians and Patients from the U.S. Multi-Society Task Force on Colorectal Cancer Screening , Am J Gastroenterology 2017; 112:6135-1874. TEST DESCRIPTION: Composite algorithmic analysis of stool [...] (Shahriar Day al, N Engl J Med 2014;370(14):8356-8698.) Cologuard may produce a false negative or false positive result (no colorectal cancer or precancerous polyp present at colonoscopy follow up). A negative Cologuard test result does not guarantee the absence of CRC or advanced adenoma (pre-cancer). The current Cologuard screening interval is every 3 years. ([place] [employer] Society and U.S. Multi-Society Task Force). Cologuard performance data in a 10,000 patient pivotal study using colonoscopy as the reference method can be accessed at the following location: www.[employer].com/results. Additional description of the Cologuard test process, warnings and precautions can be found at www.[employer].com. Stool specimen (specimen) (Rectum) 12/11/2022 2:15 PM CDT 12/13/2022 6:23 PM CDT us Kandace Donovan Detert DO URINE Final Resul t [facility] (CLIA #:[id number]) [place] [address], * ANTI HCV [[id number]] (10/07/2014 4:00 PM CDT) HEPATITIS C ANTIBODY Non-Reacti ve Non-Reacti ve 10/08/2014 4:38 PM CDT [facility] Blood specimen (specimen) BLOOD SPECIMEN / Unknown Venipuncture / Unknown 10/07/2014 4:00 PM CDT 10/07/2014 4:00 PM CDT Narrative [facility] - 10/08/2014 4:38 PM CDT Antibodies to HCV not detected; does not exclude the possibility of exposure to HCV. Kandace Mckeon DO SEND OUTS Final Resul t [facility] [address] [place] [address], from Last 3 Months or Most Recently Relevant to Health Maintenance Insurance [facility] MEDICARE PPS Care Teams Child Protective Investigator Relationship Specialty Start Date End Date Kandace Mckeon DO [address] [place] [address] PCP - General 12/25/09 Parish Ruffin MD Pulmonology Pulmonary Medicine 12/04/11 Kwaku Wild MD [address] [place] [address] Physical Medicine and Rehabilitation 10/07/14 Kari Hunt, PhD, [address] [place] [address] Psychologist Psychology 12/10/16
[2024-12-18 03:39] VITALS: BP 144/85; PULSE 59; RESP 16; TEMP 36.3; O2SAT 93; BMI 33.9
--- NOTE | 2024-12-18 03:55 | ED.CHESTPAIN ---
HPI - Chest Pain General Time Seen by Provider: 03:56 Date Seen: 12/18/24 Chief Complaint: Chest Pain Stated Complaint: chest pain Time Seen by Provider: 12/18/24 03:54 Source: patient and EMS Mode of arrival: EMS History of Present Illness HPI narrative: Iris is a 69 yo female who has a past medical history of hypertension, atrial fibrillation s/p ablation, atrial thrombus on coumadin, CHF, NIDDM, neurocognitive disorder who presents to the emergency department from [facility] for evaluation chest pain. Patient states that this morning around 2:00 a.m. she was watching TV when she developed chest pain. Patient reports taking 324 mg of aspirin and 10.4 mg nitro without relief of pain. Patient reports pain is 5/10. Patient is intermittent in nature. No aggravating or relieving factors. Nonradiating. Patient currently is pain free. Denies any fever, chills, cough or cold-like symptoms, shortness of breath, abdominal pain, lower extremity edema or calf tenderness, no other complaints. Related Data Home Medications ?Medication ?Instructions ?Recorded ?Confirmed acetaminophen 325 mg tablet 650 mg PO Q6H PRN pain 12/27/21 12/10/23 albuterol sulfate 90 mcg/actuation 2 puff inhalation Q4H PRN 12/27/21 09/12/24 aerosol inhaler (Ventolin HFA) amitriptyline 50 mg tablet 50 mg PO HS 12/27/21 09/12/24 amlodipine 10 mg tablet 10 mg PO HS 12/27/21 09/12/24 antacid See Rx Instructions PO DAILY PRN 12/27/21 12/10/23 budesonide 0.5 mg/2 mL suspension 0.5 mg inhalation BID 12/27/21 09/12/24 for nebulization diphenhydramine HCl 25 mg capsule 25 mg PO Q8H PRN allergic symptoms 12/27/21 12/10/23 (Banophen) glipizide 5 mg tablet 5 mg PO DAILY 12/27/21 12/10/23 hydroxyzine HCl 25 mg tablet 25 mg PO HS PRN anxiety 12/27/21 12/10/23 levothyroxine 25 mcg tablet 25 mcg PO DAILY 12/27/21 09/12/24 metoprolol succinate 50 mg 50 mg PO DAILY 12/27/21 09/12/24 tablet,extended release 24 hr nitroglycerin 0.4 mg sublingual 0.4 mg sublingual Q5M PRN 12/27/21 12/10/23 tablet rizatriptan 5 mg tablet 5 mg PO DAILY PRN 12/27/21 09/12/24 simvastatin 20 mg tablet 20 mg PO HS 12/27/21 09/12/24 naproxen sodium 220 mg tablet (All 220 mg PO .once weekly PRN 01/08/22 12/10/23 Day Pain Relief) calcium carbonate 200 mg PO Q4H PRN 04/29/22 09/12/24 aspirin 325 mg tablet,delayed 325 mg PO DAILY 01/15/23 09/12/24 release escitalopram oxalate 5 mg tablet 5 mg PO DAILY 01/15/23 12/10/23 escitalopram oxalate 10 mg tablet 10 mg PO DAILY 05/12/23 09/12/24 lactulose 10 gram/15 mL oral ml PO 12/10/23 12/10/23 solution Previous Rx's ?Medication ?Instructions ?Recorded omeprazole 40 mg capsule,delayed 40 mg PO DAILY #14 caps 01/08/22 release apixaban 5 mg tablet (Eliquis) 5 mg PO BID #60 tabs 10/10/24 Allergies Allergy/AdvReac Type Severity Reaction Status Date / Time duloxetine AdvReac Mild sleep Verified 09/12/24 11:26 disturbance and fatigue Review of Systems Narrative Past medical history, past surgical history, medications, allergies, family history, and social history were reviewed with the patient. No additional pertinent items. A medically appropriate review of systems was performed with pertinent positives and negatives noted in HPI, all other systems negative. [facility] Medical History PTSD (post-traumatic stress disorder) ?F43.10 - Post-traumatic stress disorder, unspecified (ICD-10) Atrial fibrillation ?I48.91 - Unspecified atrial fibrillation (ICD-10) 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 - Dependent personality disorder (ICD-10) Hypertensive heart disease with heart failure ?I11.0 - Hypertensive heart disease with heart failure (ICD-10) Clear cell carcinoma of left kidney ?C64.2 - Malignant neoplasm of left kidney, except renal pelvis (ICD-10) Diabetes mellitus with hyperglycemia, without long-term current use of insulin ?E11.65 - Type 2 diabetes mellitus with hyperglycemia (ICD-10) Chronic constipation ?K59.09 - Other constipation (ICD-10) [place]AP[place]O (obstructive sleep apnea) ?G47.33 - Obstructive sleep apnea (adult) (pediatric) (ICD-10) Mild persistent asthma ?J45.30 - Mild persistent asthma, uncomplicated (ICD-10) Migraine ?G43.909 - Migraine, unspecified, not intractable, without status migrainosus (ICD-10) Hypertension ?I10 - Essential (primary) hypertension (ICD-10) Hiatal hernia ?K44.9 - Diaphragmatic hernia without obstruction or gangrene (ICD-10) GERD (gastroesophageal reflux disease) ?K21.9 - Gastro-esophageal reflux disease without esophagitis (ICD-10) Fibromyalgia ?M79.7 - Fibromyalgia (ICD-10) Depression ?F32.A - Depression, unspecified (ICD-10) Chronic fatigue syndrome ?G93.32 - Myalgic encephalomyelitis/chronic fatigue syndrome (ICD-10) Surgical History H/O: hysterectomy ?Z90.710 - Acquired absence of both cervix and uterus (ICD-10) History of cholecystectomy ?Z90.49 - Acquired absence of other specified parts of digestive tract (ICD-10) H/O section ?Z98.891 - History of uterine scar from previous surgery (ICD-10) S/P appendectomy ?Z90.49 - Acquired absence of other specified parts of digestive tract (ICD-10) Social History Smoking Status: Never smoker Do you use any of these nicotine containing products: None Second hand tobacco smoke exposure: No How often do you have a drink containing alcohol: never How often do you have six or more drinks on one occasion: Never AUDIT-C Alcohol total score: 0 Non-prescribed substance use: denies use service: No Exam Narrative Exam Narrative: General: Afebrile, no acute distress HEENT: Normocephalic, atraumatic, conjunctiva normal. MMM Neck: non-tender, supple Cardio: regular rate. regular rhythm Resp: Normal work of breathing, no respiratory distress, lungs clear bilaterally, no wheezing, rhonchi, rales Chest/Back: no visual signs of trauma, no midline tenderness, no CVA tenderness Abdomen: soft, non distension, no tenderness, no peritoneal signs Neuro: alert and fully oriented. CN II-XII grossly intact. Grossly normal strength and sensation in all extremities. MSK: no deformities. Normal range of motion Integumentary/Skin: no rash visualized, normal color Psych: normal affect, normal behavior Const Vital Signs, click to edit/add: Vital Signs - 24 hr 12/18/24 03:39 Temperature 97.4 F L Pulse Rate [Right Pulse Oximeter] 59 L Respiratory Rate 16 Blood Pressure [Right Upper Arm] 144/85 H Pulse Oximetry 93 Oxygen Delivery Method Room Air Course Vital Signs Vital signs: Initial Vital Signs Temperature 97.4 F L 12/18/24 03:39 Temperature Source Temporal Artery Scan 12/18/24 03:39 Pulse Rate 59 L 12/18/24 03:39 Pulse Rhythm Regular 12/18/24 03:39 Respiratory Rate 16 12/18/24 03:39 Blood Pressure 144/85 H 12/18/24 03:39 Blood Pressure Mean 104 12/18/24 03:39 Blood Pressure Position Semi-Fowlers 12/18/24 03:39 Pulse Oximetry 93 12/18/24 03:39 Oxygen Delivery Method Room Air 12/18/24 03:39 Vital Signs Temperature 97.4 F L 12/18/24 03:39 Pulse Rate 59 L 12/18/24 03:39 Respiratory Rate 16 12/18/24 03:39 Blood Pressure 144/85 H 12/18/24 03:39 Pulse Oximetry 93 12/18/24 03:39 Oxygen Delivery Method Room Air 12/18/24 03:39 Temperature 97.4 F L 12/18/24 03:39 Pulse Rate 59 L 12/18/24 03:39 Respiratory Rate 16 12/18/24 03:39 Blood Pressure 144/85 H 12/18/24 03:39 Pulse Oximetry 93 12/18/24 03:39 Oxygen Delivery Method Room Air 12/18/24 03:39 MDM - Chest Pain MDM Narrative Medical decision making narrative: Iris is a 69 yo female who has a past medical history of hypertension, atrial fibrillation s/p ablation, atrial thrombus on coumadin, CHF, NIDDM, neurocognitive disorder who presents to the emergency department from [facility] for evaluation chest pain. Upon arrival patient is nontoxic appearing, afebrile, no distress. Patient resting comfortably, watching TV. Patient denies any chest pain upon arrival. Hemodynamically stable heart rate 59, blood pressure 144/85, oxygen 93% on room air. Differential diagnosis includes but is not limited to ACS versus atypical chest pain versus musculoskeletal versus gastritis versus peptic ulcer disease versus pancreatitis versus nonspecific chest pain versus arrhythmia versus pneumonia versus pleural effusion versus CHF among others. Upon arrival patient declined anything for symptoms as she currently is pain-free. I reviewed EKG which demonstrates sinus bradycardia with a ventricular rate of 56 beats per minute, normal axis, QTC 472, no acute ischemic change, sinus bradycardia when compared to prior EKG otherwise no significant change. Comprehensive labs remarkable for no leukocytosis white blood cell count 9.25, hemoglobin 13.5, INR 1.14, no acute metabolic or electrolyte abnormality, no transaminitis, negative troponin, less than 0.01. BNP 463. I personally reviewed interpreted chest x-ray which is unremarkable with no acute pleural effusion, fluid overload, no focal infiltrate, no pneumothorax. On re-evaluation patient continues to be resting comfortably, no distress. I discussed results with patient. ED workup unremarkable. Low suspicious for ACS given patient's EKG, troponin within normal limits, patient remains pain-free, no evidence of fluid overload on chest x-ray, BNP less than 500. No other acute signs of infection or metabolic electrolyte abnormality. At this time I think is reasonable for discharge home, recommend close outpatient follow-up with primary care provider strict return precautions discussed. Patient understands and agrees with the plan. Medical Records Data Attestation: I reviewed the patient's medical records. Lab Data Attestation: I reviewed the patient's lab results. Labs: Lab Results 12/18/24 12/18/24 Range/Units 03:41 04:03 WBC 9.25 (4.50-11.00) K/uL RBC 4.73 (4.00-5.20) m/uL Hgb 13.5 (12.0-16.0) gm/dL Hct 41.5 (33.0-51.0) % MCV 88 (80-100) fL MCH 29 (26-34) pg MCHC 33 (32-36) gm/dL RDW Coeff of Anamika 13.7 (11.5-15.5) % Plt Count 472 H (140-440) K/uL Neut % (Auto) 43.9 (42.0-72.0) % Lymph % (Auto) 43.0 (20-44) % Bertie % (Auto) 6.4 (0.0-11.0) % Eos % (Auto) 5.3 (0.0-7.0) % Baso % (Auto) 1.3 (0.0-3.0) % Neut # (Auto) 4.06 (1.7-7.0) K/uL Lymph # (Auto) 3.98 H (0.90-2.90) K/uL Bertie # (Auto) 0.60 (0.00-0.90) K/UL Eos # (Auto) 0.49 (0.00-0.50) K/uL Baso # (Auto) 0.12 (0.00-0.30) K/uL Abs Immat Gran (auto) 0.01 (0.00-0.30) K/uL Imm/Tot Granulo (auto) 0.1 % INR 1.14 H (0.91-1.10) Sodium 138 (135-149) mmol/L Potassium 3.9 (3.6-5.1) mmol/L Chloride 98 (96-114) mmol/L Carbon Dioxide 32 (20-32) mmol/L Anion Gap 8 (7-15) mEq/L BUN 12 (7-30) mg/dL Creatinine 0.8 (0.5-1.5) mg/dL Estimated Creat Clear 49.12 Estimated GFR 81 ml/min Glucose 153 H (60-115) mg/dL Calcium 9.3 (8.4-10.6) mg/dL Total Bilirubin 0.3 (0.1-1.5) mg/dL AST 30 (12-35) U/L ALT 28 (4-35) U/L Alkaline Phosphatase 90 (40-150) U/L Troponin I < 0.01 (0.01-0.04) ng/mL NT-Pro-B Natriuret Pep 463 H (See Note) pg/mL Total Protein 8.1 (6.0-8.3) g/dL Albumin 4.4 (3.3-5.0) g/dL Lipase 27 (23-300) U/L Urine Color Yellow (Yellow) Urine Appearance Clear (Clear) Urine pH 6.0 (5.0-8.5) Ur Specific [place] <= 1.005 (1.000-1.030) Urine Protein Negative (Negative) Urine Glucose (UA) Negative (Negative) Urine Ketones Negative (Negative) Urine Blood Trace-intact A (Negative) Urine Nitrite Negative (Negative) Urine Bilirubin Negative (Negative) Urine Urobilinogen 0.2 (0.2-1.0) Ur Leukocyte Esterase Negative (Negative) Urine RBC 0-2 (0-2) Urine WBC 0-2 (0-5) Ur Squamous Epith Cells None (None-Few) Urine Bacteria None (None) POC Troponin I 0.02 (0.01-0.04) ng/ml Imaging Data Chest x-ray: Radiologist's impression: FINDINGS: TUBES AND LINES: None. HEART AND MEDIASTINUM: The heart size is normal. The mediastinal contour appears normal for patient age. LUNGS AND PLEURAL SPACES: The lungs appear normal.The pleural spaces are unremarkable. OSSEOUS STRUCTURES: Demineralization, degenerative changes and kyphosis. IMPRESSION: No evidence of active pulmonary disease. Discharge Plan Discharge Clinical Impression: Chest pain Condition: Stable Additional Instructions: Please follow-up with your primary care provider in the next 2-3 days for further evaluation and follow-up. Please call to schedule appointment. Please follow-up with your cardiology. Please continue on medications. Return to the emergency department if any worsening symptoms. It was a pleasure taking care of you today. We hope you feel better soon. Prescriptions: No Action lactulose 10 gram/15 mL solution PO acetaminophen 325 mg tablet 650 mg PO Q6H PRN (Reason: pain) amitriptyline 50 mg tablet 50 mg PO HS amlodipine 10 mg tablet 10 mg PO HS budesonide 0.5 mg/2 mL suspension for nebulization 0.5 mg inhalation BID glipizide 5 mg tablet 5 mg PO DAILY levothyroxine 25 mcg tablet 25 mcg PO DAILY metoprolol succinate 50 mg tablet extended release 24 hr 50 mg PO DAILY simvastatin 20 mg tablet 20 mg PO HS antacid suspension See Rx Instructions PO DAILY PRN Rx Instructions: 15-30ml orally daily PRN; rizatriptan 5 mg tablet 5 mg PO DAILY PRN Rx Instructions: may repeat once after 2 hours albuterol sulfate [Ventolin HFA] 90 mcg/actuation HFA aerosol inhaler 2 puff INHALATION Q4H PRN diphenhydramine HCl [Banophen] 25 mg capsule 25 mg PO Q8H PRN (Reason: allergic symptoms) Rx Instructions: 1-2 caps prn hydroxyzine HCl 25 mg tablet 25 mg PO HS PRN (Reason: anxiety) nitroglycerin 0.4 mg tablet, sublingual 0.4 mg sublingual Q5M PRN Rx Instructions: max 3 tabs within 15 minutes naproxen sodium [All Day Pain Relief] 220 mg tablet 220 mg PO .once weekly PRN omeprazole 40 mg capsule,delayed release(DR/EC) 40 mg PO DAILY Qty: 14 0RF aspirin 325 mg tablet,delayed release (DR/EC) 325 mg PO DAILY escitalopram oxalate 5 mg tablet 5 mg PO DAILY escitalopram oxalate 10 mg tablet 10 mg PO DAILY calcium carbonate 200 mg calcium (500 mg) tablet,chewable 200 mg PO Q4H PRN Rx Instructions: Chew 215 mg of calcium daily as needed for indigestion or heartburn. Eliquis 5 mg tablet 5 mg PO BID Qty: 60 0RF Follow Up/Referrals: Kandace Mckeon DO [Primary Care Provider, Family Practice] Stand Alone Forms: [facility] Info Instructions
--- NOTE | 2024-12-18 03:56 | CRLHL7_ITS ---
For Patients: As a result of the Cures Act, medical imaging exams and procedure reports are released immediately into your electronic medical record. You may view this report before your referring provider. If you have questions, please contact your health care provider. INDICATION: Chest pain COMPARISON: October 10, 2024 TECHNIQUE: PA and lateral views of the chest were acquired FINDINGS: TUBES AND LINES: None. HEART AND MEDIASTINUM: The heart size is normal. The mediastinal contour appears normal for patient age. LUNGS AND PLEURAL SPACES: The lungs appear normal.The pleural spaces are unremarkable. OSSEOUS STRUCTURES: Demineralization, degenerative changes and kyphosis. IMPRESSION: No evidence of active pulmonary disease. Dictated by Eusebio Monson MD @ 12/18/2024 5:15:16 AM (Electronically Signed)
[2024-12-18 04:03] LABS: Appearance Urine Clear (Clear)
[2024-12-18 04:09] LABS: Hematocrit* 41.5 % (33.0-51.0); Hemoglobin* 13.5 gm/dL (12.0-16.0); Immature Granulocytes Abs Auto 0.01 K/uL (0.00-0.30); Immature Granulocytes Pct Auto 0.1 %; Lymphocytes Absolute Auto 3.98 K/uL (0.90-2.90); Mean Corpuscular HGB Conc 33 gm/dL (32-36); Mean Corpuscular Hemoglobin 29 pg (26-34); Mean Corpuscular Volume 88 fL (80-100); RDW Coefficient of Variation % 13.7 % (11.5-15.5); Red Blood Count* 4.73 m/uL (4.00-5.20); White Blood Count* 9.25 K/uL (4.50-11.00)
[2024-12-18 04:12] LABS: Slide Review Reflex No
--- OUTSIDE RECORDS SUMMARY | 2024-12-18 04:13 | XMS_ITS | CCD ---
Author Organization Unknown Care Team Providers Care Millinery Copyist Name Role Phone Jointer Machine Operator, [place] Primary Care Provider Unava ilable Unavailable Chronic Care Management Unavaila ble Summary Purpose DataExchange Insurance Providers Payer name Policy type / Coverage type Covered democrat ID Effective Begin Date Effective End Date Medicare [place] Medicare Part B [id number] Unknown Unknown [employer] Medicare Part B [id number] Unknown Unknown Family History Family History data not found Medication Administered No Medication Administered data Reason For Visit No Reason For Visit data
[2024-12-18 04:21] LABS: Troponin, Point-of-Care* 0.02 ng/ml (0.01-0.04)
[2024-12-18 04:28] LABS: Albumin* 4.4 g/dL (3.3-5.0); Chloride* 98 mmol/L (96-114); Sodium* 138 mmol/L (135-149)
[2024-12-18 04:29] LABS: Potassium* 3.9 mmol/L (3.6-5.1)
[2024-12-18 04:31] LABS: Alanine Aminotransferase* 28 U/L (4-35); Alkaline Phosphatase* 90 U/L (40-150); Anion Gap 8 mEq/L (7-15); Aspartate Amino Transferase* 30 U/L (12-35); Bilirubin Total* 0.3 mg/dL (0.1-1.5); Blood Urea Nitrogen* 12 mg/dL (7-30); Calcium* 9.3 mg/dL (8.4-10.6); Carbon Dioxide* 32 mmol/L (20-32); Creatinine* 0.8 mg/dL (0.5-1.5); Est. Creatinine Clearance* 49.12; Estimated Glomerular Filt Rate 81 ml/min; Glucose* 153 mg/dL (60-115); Total Protein* 8.1 g/dL (6.0-8.3)
[2024-12-18 04:32] LABS: INR 1.14 (0.91-1.10); Prothrombin Time 15.4 Seconds
[2024-12-18 04:41] LABS: NT Pro B Type NatriureticPept* 463 pg/mL (See Note)
--- OUTSIDE RECORDS SUMMARY | 2024-12-18 05:21 | XMS_ITS | CCD ---
Author Organization Unknown Care Team Providers Care Instructional Developer Name Role Phone Fbi Investigator, [place] Primary Care Provider Unava ilable Unavailable Chronic Care Management Unavaila ble Summary Purpose DataExchange Insurance Providers Payer name Policy type / Coverage type Covered republican ID Effective Begin Date Effective End Date [place] Part B [id number] Unknown Unknown [employer] Medicare Part B [id number] Unknown Unknown Family History Family History data not found Medication Administered No Medication Administered data Reason For Visit No Reason For Visit data
--- OUTSIDE RECORDS SUMMARY | 2024-12-18 05:21 | XMS_ITS | CCD ---
Author Organization Unknown Care Team Providers Care Motor Racer Name Role Phone Audit Specialist, [place] Primary Care Provider Unava ilable Unavailable Chronic Care Management Unavaila ble Summary Purpose DataExchange Insurance Providers Payer name Policy type / Coverage type Covered democrat ID Effective Begin Date Effective End Date [place] Part B [id number] Unknown Unknown [employer] Medicare Part B [id number] Unknown Unknown Family History Family History data not found Medication Administered No Medication Administered data Reason For Visit No Reason For Visit data
[2024-12-18 05:30] VITALS: BP 136/78; PULSE 64; RESP 16; TEMP 36.8; O2SAT 95
== END 2024-12-18 06:00 | disposition home or self-care (01) ==
PROVIDERS: Emergency Provider Emergency Medicine; PCP Family Medicine
DX: R07.9 Chest pain, unspecified (principal)
CPT/HCPCS: 36415; 71046; 80053; 81001; 83690; 83880; 84484; 85025; 85610; 93005; 99284; 99285

== ENCOUNTER 2025-02-13 19:23 | Emergency (ER) | payer OTHER, SELFPAY ==
--- OUTSIDE RECORDS SUMMARY | 2024-10-11 22:30 | XMS_ITS | Continuity of Care Document ---
Author Organization [facility] Address [address] [address] [place] [address] Phone Care Team Providers Care Capacitor Repairer Name Role Phone No Information Unavailable Unavailable Allergies, Adverse Reactions, Alerts Substance Reaction Status Criticality No Known Allergies Active No Inform ation Medications Medication Instructions Dosage Effective Dates (start - stop) Status Comments ferrous sulfate 325 mg (65 mg iron) tablet take 1 tablet by oral route every day 325 MG - Active metoprolol succinate ER 50 mg tablet,extended release 24 hr take 1 tablet by oral route every day 50 MG - Active dexamethasone 0.5 mg/5 mL oral elixir take 5 milliliter by oral route 2 times every day 0.5 MG - Active hydroxyzine HCl 25 mg tablet take 1 tablet by oral route 3 times every day as needed 25 MG - Active ibuprofen 200 mg tablet take 1 tablet by oral route every 6 hours as needed with food 200 MG - Active nitroglycerin 0.[address] 1 tablet by sublingual route at 1st sign of attack; may repeat every 5 minutes up to 3 tabs; if norelief seek medical help 0.4 MG - Active Ventolin HFA 90 mcg/actuation aerosol inhaler inhale 2 puff by inhalation route every 4 - 6 hours as needed 180 MCG - Active amitriptyline 50 mg tablet take 1 tablet by oral route every day at bedtime 50 MG - Active amlodipine 10 mg tablet take 1 tablet by oral route every day 10 MG - Active aspirin 325 mg tablet take 1 tablet by oral route every day 325 MG - Active budesonide 0.5 mg/2 mL suspension for nebulization inhale 1 milliliter by nebulization route 2 times every day 0.25 MG - Active escitalopram 10 mg tablet take 1.5 tablet by oral route every day 15 MG - Active glipizide 10 mg tablet take 1 tablet by oral route every day before a meal 10 MG - Active levothyroxine 25 mcg tablet take 1 tablet by oral route every day 25 MCG - Active simvastatin 20 mg tablet take 1 tablet by oral route every day in the evening 20 MG - Active acetaminophen 325 mg tablet take 2 tablet by oral route every 6 hours as needed as needed 650 MG - Active Antacid (calcium carb-magnesium hyd) 400 mg-135 mg/5 mL oral susp take 10 milliliter by oral route between meals, at bedtime, or as directed. not to exceed 90 mL in 24hrs as needed 10.00 milliliter - Active Antifungal (clotrimazole) 1 % topical cream apply by topical route 2 times every day to the affected and surrounding areas of skin in the morning and evening 0.00 - Active rizatriptan 5 mg tablet take 1 tablet by oral route once, may repeat at 2 hour intervals; do not exceed 30 mg in 24 hours as needed 5 MG - Active Systane Complete 0.6 % eye drops as needed - Active omeprazole 40 mg capsule,delayed release take 1 capsule by oral route every day before a meal 40 MG - No Longer Active Procedures Procedure Date cancelled appt Offic/outpt E&m New Mod-hi Routine Serum Collection Advance Directives Directive Yes / No Effective Date File Name No Information Encounters Encounter Description Practice Location Reason(s) For Visit Diagnoses Date Provider Providers Copied on Encounter [facility] [address] [address], [place], [id number], [place] tel:[phone] No Information 5 No Information [facility], [address] [address], [place], [id number], [place] tel:[phone] [facility] No Information 5 Cain Pearson. [address] [facility], [address], [place], [place], [id number], [place]. tel:[phone] Referring Provider: Referral Self, USE FOR SELF REFERRALS. Offic/outpt E&m New Mod-hi [facility], [address] [address], [place], [id number], [place] tel:[phone] [facility] GI Symptoms or Concerns (chief complaint) Irregular bowel habitsAbdominal pain, unspecified abdominal locationMelenaHe artburnDysphagia , unspecified type Josiah Butler. [address] [facility], [facility] [address], [place], [place], [id number], [place]. tel:[phone] Referring Provider: Kandace Mckeon MD, [address] [place] [address], [address]. tel:[phone] [facility], [address] [address], [place], [id number], [place] tel:[phone] No Information 5 No Information Referring Provider: Kandace Mckeon MD, [address] [place] [address], [address]. tel:[phone] Family History Family Member Type Diagnosis Age At Onset Son Problem ADHD Son Problem Hypertension Father Problem Kidney Failure Mother Problem Alzheimer's disease Son Problem Depression Father Problem Heart Attack Mother Problem Parkinson Disease Immunizations Vaccine Date Status Comments Influenza, adjuvanted, inactivated, trivalent, injectable, preservative free administered Note: [facility] bi-directional interface ; Source: Other Registry Influenza, adjuvanted, inactivated, quadrivalent, injectable, preservative free administered Note: [facility] bi-directional interface ; Source: Other Registry Pneumococcal conjugate vacci ne 20-valent (PCV20), polysaccharide [id number] conjugate, adjuvant, preservative free administered Note: [facility] bi-direct ional interface ; Source: Other Registry tetanus toxoid, reduced diphtheria toxoid, and acellular pertussis vaccine, adsorbed administered Note: [facility] b i-directional interface ; Source: Other Registry Afluria Qd administered Note: [facility] bi-directional interface ; Source: Other Registry Afluria Qd administered Note: M [facility] bi-directional interface ; Source: Other Registry SARS-COV-2 (COVID-19) vaccin e, mRNA, spike protein, LNP, preservative free, 30 mcg/0.3mL dose administered Note: [facility] bi-direct ional interface ; Source: Other Registry SARS-COV-2 (COVID-19) vaccin e, mRNA, spike protein, LNP, preservative free, 100 mcg/0.5mL dose or 50 mcg/0.25mL dose administered Note: [facility] bi -directional interface ; Source: Other Registry SARS-COV-2 (COVID-19) vaccin e, mRNA, spike protein, LNP, preservative free, 100 mcg/0.5mL dose or 50 mcg/0.25mL dose administered Note: [facility] bi -directional interface ; Source: Other Registry Afluria Qd administered Note: M [facility] bi-directional interface ; Source: Other Registry Influenza, recombinant, quadrivalent, injectable, preservative free administered Note: [facility] bi-direct ional interface ; Source: Other Registry Afluria Qd administered Note: M [facility] bi-directional interface ; Source: Other Registry Afluria Qd administered Note: M [facility] bi-directional interface ; Source: Other Registry Afluria Qd administered Note: M [facility] bi-directional interface ; Source: Other Registry Afluria Qd administered Note: M [facility] bi-directional interface ; Source: Other Registry Pneumovax 23 administered Note: [facility] bi-d irectional interface ; Source: Other Registry Afluria Qd administered Note: M [facility] bi-directional interface ; Source: Other Registry tetanus toxoid, reduced diphtheria toxoid, and acellular pertussis vaccine, adsorbed administered Note: [facility] b i-directional interface ; Source: Other Registry Influenza, split virus, trivalent, injectable, preservative free administered Note: [facility] bi-direct ional interface ; Source: Other Registry Influenza, split virus, trivalent, injectable, preservative free administered Note: [facility] bi-direct ional interface ; Source: Other Registry Influenza, split virus, trivalent, injectable, contains preservative administered Note: [facility] bi-direct ional interface ; Source: Other Registry tetanus and diphtheria toxoi ds, adsorbed, preservative free, for adult use (5 Lf of tetanus toxoid and 2 Lf of diphtheria toxoid) administered Note: MII C bi- directional interface ; Source: Other Registry Pneumovax 23 administered Note: [facility] bi-d irectional interface ; Source: Other Registry Payers Payer name Insurance type Covered constitution party ID Authoriza tion(s) No Information Social History Type Description Quantity Date Captured Comments Sex Female Smoking Status No Information Chief Complaint And Reason For Visit No Information Reason For Referral Reason For Referral No Information History Of Present Illness Encounter Date Complaint History Of Prese nt Illness GI Symptoms or Concerns This is a 69-year-old female who is here in consultation at the request of Destiny Mckeon MD for evaluation related to IBS. The patient presents to today's visit with a nurse from her assisted living facility.Patient notes she has had postprandial stomachaches for a while, but states over the last couple months symptoms have increased in severity. Patient states he has stomachaches primarily are identified by lower abdominal pain and difficulty with stooling. Patient states she is currently having a bowel movement every 5 days, with stools varying between [place] type 3, 5, and 6 stools. She describes her stools appearing like georgie. Patient states she often has been 25 to 45 minutes on the toilet for bowel movements. She does endorse lower abdominal pain primarily postprandially. She describes the pain as sharp and states that abdominal pain can improve following bowel movements. She does endorse evidence of black stools. She states nausea and vomiting can occur if she has difficulty passing stools. According to her medication list she is currently taking omeprazole 40 mg once daily, per the patient's nurse the patient recently requested more independence at her assisted living facility therefore her medications are handed to her in an envelope and staff is unaware if she is always taking medications once she goes back to her room. Patient does endorse heartburn occurring 2-3 times per week. She also describes episodes of choking on food when she eats too fast, she is unable to discern whether these choking episodes are due to the fact that food is getting stuck in her esophagus. Per the patient she currently takes Tums and MiraLAX as needed for stomachaches as described above. She otherwise denies blood in the stool or unintentional weight loss.Reportedly her last colonoscopy was 3 years ago through [place], I unfortunately do not have those records at this time but will request them.Previous abdominal surgeries include cholecystectomy, appendectomy, and x 2.She denies family history of gastrointestinal malignancies, inflammatory bowel disease, or celiac disease.She denies tobacco, marijuana, alcohol use. She is currently taking aspirin daily as prescribed, and states she only takes other NSAID medications as needed. Functional Status Date Functional Assessmen t No Information Instructions Date Instruction Additional Infor donnie It was nice meeting you today, Iris! As we discussed-Blood work today to check blood counts and thyroid function-We will reach out to you to schedule an upper endoscopy and colonoscopy -I recommend starting a daily bowel regimen. I recommend taking 1 to 2 capfuls of MiraLax daily mixed in 8 ounces of any noncarbonated beverage and 400mg of magnesium oxide at bedtime daily. You can obtain these over the counter. -Continue with daily omeprazole as prescribed by your previous provider-Follow up in clinic following completion of your upper endoscopy and colonoscopy or sooner if questions or concerns arise HOW TO REACH Stephon can reach me by sending a message through your patient portal or calling my patient coordinator at [phone] Related to Irregular bowel habits Assessments Type Assessment Date No Information Patient Care Teams Name Effective Dates (start - stop) Status Members No Information
--- OUTSIDE RECORDS SUMMARY | 2024-10-11 22:30 | XMS_ITS | Continuity of Care Document ---
Author Organization [facility] Address [address] [address] [place] [address] Phone Care Team Providers Care Applications Project Manager Name Role Phone No Information Unavailable Unavailable [...] Encounter [facility] [address] [address], [place], [id number], [place] tel:[phone] No Information 5 No Information [facility], [address] [address], [place], [id number], [place] tel:[phone] [facility] No Information 5 Cain Pearson. [address] [facility], [address], [place], [place], [id number], [place]. tel:[phone] Referring Provider: Referral Self, USE FOR SELF REFERRALS. Offic/outpt E&m New Mod-hi [facility], [address] [address], [place], [id number], [place] tel:[phone] [facility] GI Symptoms or Concerns (chief complaint) Irregular bowel habitsAbdominal pain, unspecified abdominal locationMelenaHe artburnDysphagia , unspecified type Josiah Butler. [address] [facility], [facility] [address], [place], [place], [id number], [place]. tel:[phone] Referring Provider: Kandace Mckeon MD, [address] [place] [address], [address]. tel:[phone] [facility], [address] [address], [place], [id number], [place] tel:[phone] No Information 5 No Information Referring Provider: Kandace Mckeon MD, [address] [place] [address], [address]. tel:[phone] Family History Family Member Type Diagnosis Age [...] Pneumococcal conjugate vacci ne 20-valent (PCV20), polysaccharide [id number] conjugate, adjuvant, preservative free administered Note: [facility] [...] Registry Payers Payer name Insurance type Covered green party ID Authoriza tion(s) No Information Social [...] every 5 days, with stools varying between [place] type 3, 5, and 6 stools. She [...] last colonoscopy was 3 years ago through [place], I unfortunately do not have those records [...] portal or calling my patient coordinator at [phone] Related to Irregular bowel habits Assessments Type Assessment Date No Information Patient Care Teams Name Effective Dates (start - stop) Status Members No Information
--- OUTSIDE RECORDS SUMMARY | 2025-02-13 19:25 | XMS_ITS | Clinical Summary ---
Author Organization [facility] Address [address] [place] [address] Care Team Providers Care Uniform Maker Name Role Phone Kandace Mckeon DO Primary Care Provider [phone] Allergies Active Allergy Reactions Criticality Noted Date Comments Duloxetine Other Low 01/19/2021 Other Reaction(s): sleep disturbance and fatigue sleep disturbance and fatigue. Medications acetaminophen (TYLENOL) 325 mg oral tablet TAKE 2 TABLETS BY MOUTH EVERY 4-6 HOURS NEEDED FOR PAIN 5 Active albuterol HFA (PROVENTIL;VENT LUCY HFA) 90 mcg/actuation Inhl inhaler Inhale 2 puffs every 4 (four) hours. 5 Active amitriptyline (ELAVIL) 50 mg oral tablet Take 1 tablet (50 mg) by mouth Daily. 5 Active amLODIPine (NORVASC) 10 mg oral tablet Take 1 tablet (10 mg) by mouth Daily. 4 Active ELIQUIS 5 mg oral tablet Take 1 tablet (5 mg) by mouth twice a day. 5 Active aspirin enteric coated 325 mg oral delayed release tablet Take 1 tablet (325 mg) by mouth Daily. 5 Active blood sugar diagnostic (BLOOD GLUCOSE TEST) Strip testing strips Dispense test strips covered by insurance Test 2 times per day. 4 Active budesonide, conc: 0.5mg/2mL, (PULMICORT) 0.5 mg/2 mL Inhl nebulizer suspension INHALE 1 AMPULE BY MOUTH VIA NEBULIZER TWICE DAILY 5 Active Calcium-Choleca lciferol, D3, 500 mg-10 mcg (400 unit) oral Tab Take 1 tablet by mouth Daily. 5 Active Cholecalciferol , Vitamin D3, 25 mcg (1,000 unit) oral chew tab Chew 1 tablet Daily. 5 Active clotrimazole 1% (LOTRIMIN) 1 % Top cream cream APPLY TO AFFECTED AREA(S) TWICE DAILY NEEDED FOR YEAST RASH *PATIENT SELF-ADMINISTE RS* 5 Active escitalopram oxalate (LEXAPRO) 10 mg oral tablet Take 1.5 tablets (15 mg) by mouth Daily. 5 Active Ferrous Sulfate 325 mg (65 mg iron) oral TbEC Take 1 tablet (325 mg) by mouth Daily. 5 Active glipiZIDE (GLUCOTROL) 10 mg oral tablet Take 1 tablet (10 mg) by mouth. 5 Active hydrOXYzine HCl (ATARAX) 25 mg oral tablet Take by mouth. 4 Active levothyroxine (SYNTHROID) 25 mcg oral tablet TAKE 1 TABLET BY MOUTH DAILY @NOON 5 Active magnesium oxide (MAG-OX) 400 mg oral tablet Take 1 tablet (400 mg) by mouth. 5 Active Methyl Salicylate-Ment hol 30-10 % Top cream APPLY TOPICALLY 1 GRAM TOPICALLY EVERY 2 HOURS NEEDED 4 Active metoprolol succinate, XL, (TOPROL XL) 50 mg oral extended release tablet 24 HR Take by mouth. 5 Active nitroGLYCERIN (NITROSTAT) 0.4 mg sublingual tablet Take 1 tablet (0.4 mg) under the tongue every 5 (five) minutes as needed. 5 Active omeprazole (PRILOSEC) 40 mg oral delayed release capsule Take 1 capsule (40 mg) by mouth Daily. 5 Active rizatriptan (MAXALT) 5 mg oral tablet TAKE 1 TABLET BY MOUTH DAILY NEEDED *GIVE AT A MINIMUM OF 2 HRS APART*MAX OF 30MG PER 24 HRS* 5 Active LUBRICANT EYE, PG-PEG 400, 0.4-0.3 % Opht Drop ophthalmic (EYE) drops Instill 1-2 drops into the eye. 4 Active simvastatin (ZOCOR) 20 mg oral tablet Take 1 tablet (20 mg) by mouth Daily. 5 Active Active Problems Problem Noted Date Diagnosed Date 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 et iologies 04/23/2023 Chronic constipation 01/15/2022 Type 2 diabetes mellitus wit h hyperglycemia, without long-term current use of insulin 10/18/2021 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 New onset atrial fibrillation 06/10/2019 Post traumatic stress disorder (PTSD) 03/20/2017 Controlled type 2 diabetes m ellitus without complication, without long-term current use of insulin 08/23/2015 Fibromyalgia 06/28/2015 Mild persistent asthma 06/28/2014 Iron deficiency anemia, unspecified 07/27/2009 Mixed hyperlipidemia 07/27/2009 Depression with anxiety 05/24/2009 Hypertension 05/24/2009 Migraine 05/24/2009 Encounters Date Type Department Care Team Description 12/23/2024 Results Follow-Up [facility] Neurology [address] [address] Tracy Cloud MD PHOSPHORYLATED TAU 217 (PTAU-217), PLASMA ([facility]), PTAU-217/BETA AMYLOID 42 RATIO, PLASMA ([facility]), VITAMIN B12 ([facility]) 12/20/2024 1:00 PM CDT Office Visit [address] [address] Tracy Cloud MD 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 etiologies (HCC) (Primary Dx); CHAPITO (obstructive sleep apnea) from Last 3 Months Family History Medical History Relation Comments Parkinson's Disease Mother Relation Status Comments Mother Social History Tobacco Use Types Packs/Day Years Used Date Smoking Tobacco: Never Smokeless Tobacco: Never Tobacco Cessation:Counseling Given: Not Answered Alcohol Use Standard Drinks/Week Comments Never 0 (1 standard drink = 0.6 oz pur e alcohol) Comments Unknown Sex and Gender Information Value Date Recorded Sex Assigned at Not on file Legal Sex Female 1:47 PM CDT Gender Identity Not on file Sexual Orientation Not on file Plan of Treatment Health Maintenance Due Date Last Done Comments Colonoscopy 1957 Creatinine 1957 Eye Exam 1957 HgbA1C 1957 Microalbumin Q12 Month 1957 Depression Follow-Up (PHQ-9) 1958 RSV Vaccines (1 - Risk 50-74 years 1-dose series) 2007 Yearly Review of HCD 2007 Zoster Vaccine (1 of 2) 2007 Medicare Wellness Visit 06/13/2023 06/12/2022 COVID-19 Vaccine ( season) 2024 01/19/2021, 05/04/2020, 04/06/2020 Influenza Vaccine (#1) 2024 , 01/03/2023, 12/12/2021, Additional history exists Osteoporosis Screening 07/19/2026 07/19/2024 Mammogram Screening 07/21/2026 07/21/2024, 07/21/2024, 04/30/2023, Additional history exists Adult Tetanus Booster 03/05/2032 03/05/2022 , 01/22/2012, 05/24/2009 Hepatitis C Screening Completed 10/07/2014 Pneumococcal 50+ Years Completed , 04/05/2015, 01/25/2008 Meningococcal B Vaccine Aged Out No l onger eligible based on patient's age to complete this topic Procedures Procedure Name Priority Date/Time Associated Diagnosis Comments VITAMIN B12 ([facility]) Routine 12/20/2024 1:11 PM CDT 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 etiologies (HCC) PTAU-217/BETA AMYLOID 42 RATIO, PLASMA ([facility]) Routine 12/20/2024 1:10 PM CDT 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 etiologies (HCC) PHOSPHORYLATED TAU 217 (PTAU-217), PLASMA ([facility]) Routine 12/20/2024 1:10 PM CDT 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 etiologies (HCC) from Last 3 Months Results * VITAMIN B12 ([facility]) (12/20/2024 1:11 PM CDT) Vitamin B12 ([facility]) 664 232 - 1,245 pg/mL [facility] 1 Blood 12/20/2024 1:11 PM CDT 12/19/2024 11:00 PM CDT Narrative [facility] 1 - 12/21/2024 9:09 AM CDT Performed at: 01 - [address] [id number] Therapeutic Specialist: León Dai MD, Phone: [phone] us Tracy Cloud MD [facility] ORDERABLES Final Res ult [facility] 1 * PTAU-217/BETA AMYLOID 42 RATIO, PLASMA ([facility]) (12/20/2024 1:10 PM CDT) pTau-217 ([facility]) 0.117 Not Estab. pg/mL [facility] 1 Comment: The reportable range of this assay is 0.041 to 10.000 pg/mL. The analytical measuring interval is 0.047 to 10.000 pg/mL. Beta-amyloid 42 ([facility]) 30.8 Not Estab. pg/mL [facility] 1 Comment: The reportable range of this assay is 0.2 to 500.0 pg/mL. The analytical measuring interval is 0.8 to 500.0 pg/mL. pTau-217/AB42 Ratio ([facility]) Comment [facility] 1 Comment: 0.37846 Negative <0.16435 Indeterminate 0.32871-5.91388 Positive >0.52450 Interpretation ([facility]) Comment [facility] 1 Comment: INDETERMINATE: A test result between 0.29759 and 0.95039 is an indeterminate result which is consistent with patients who are uncertain to have amyloid pathology associated with Alzheimer's disease. These patients should be considered for further testing. The Lumipulse(R) G pTau-217/Beta-Amyloid 42 Ratio, plasma is indicated for adult patients, aged 50 years and older, presenting at a specialized care setting with signs and symptoms of cognitive decline. The ratio value reported is calculated in accordance with guidance documented in the FDA-approved instructions for use (IFU) for this assay. Please consult the official IFU for more information. Blood 12/20/2024 1:10 PM CDT 12/19/2024 11:00 PM CDT Narrative [facility] 1 - 12/23/2024 5:09 PM CDT Performed at: - [facility] [address] [place] [id number] Therapeutic Specialist: Sheryl Davis MD, Phone: [phone] us Tracy Cloud MD [facility] ORDERABLES Final Res ult [facility] 1 * PHOSPHORYLATED TAU 217 (PTAU-217), PLASMA ([facility]) (12/20/2024 1:10 PM CDT) Pathologist [facility] p-qki304 ([facility]) 0.15 0.00 - 0.18 pg/mL [facility] 1 Comment: Clinical cutoff value was established using samples from a patient cohort characterized with amyloid PET data. A p-wib477 value of >0.18 is a reported surrogate marker for beta amyloid pathology, and can be used to facilitate biological identification of Alzheimer's disease (1). p-qxf726 has also been used in clinical trials to monitor patients on anti-amyloid therapy (2,3). Test performed by DocSperaipProcureSafe chemiluminescent enzyme immunoassay ([employer]). Values obtained with different methods cannot be used interchangeably. The validated limit of quantification is 0.06 pg/mL. Assay detection limit is 0.03 pg/mL. Footnotes ([facility]) Comment [facility] 1 Comment: 1. Jonathan Kim, et al. Diagnostic Accuracy of a Plasma Phosphorylated Tau 217 Immunoassay for Alzheimer Disease Pathology. [facility] (2023). 2. Jonathan Kim, et al. Differential roles of A42/40, p-wmw365 and p-npz524 for Alzheimer's trial selection and disease monitoring. Nature medicine 28.12 (2021): 2845-6013. 3. Joanne EVERETT, Nat M, Avery [place], et al. Association of [employer] Treatment With Exploratory Plasma Biomarkers in Early Symptomatic Alzheimer Disease: A Secondary Analysis of the TRAILBLAZER-ALZ Randomized Clinical Trial. [facility]. 2021;79(12):5708-2810. Blood 12/20/2024 1:10 PM CDT 12/19/2024 11:00 PM CDT Narrative [facility] 1 - 12/23/2024 5:09 PM CDT Test(s) [id number] was developed and its performance characteristics determined by [facility]. It has not been cleared or approved by the Food and Drug Administration. Performed at: 01 - [facility] [address] [place] [id number] Therapeutic Specialist: Sheryl Davis MD, Phone: [phone] us Tracy Cloud MD [facility] ORDERABLES Final Res ult [facility] 1 from Last 3 Months Insurance [facility] Care Teams Uniform Maker Relationship Specialty Start Date End Date Kandace Mckeon DO [address] [place] [address] PCP - General Family Medicine 12/20/24
--- OUTSIDE RECORDS SUMMARY | 2025-02-13 19:25 | XMS_ITS | CCD ---
Author Organization Unknown Care Team Providers Care Python Django Developer Name Role Phone [employer], [place] Primary Care Provider Unava ilable Unavailable Chronic Care Management Unavaila ble Summary Purpose DataExchange Insurance Providers Payer name Policy type / Coverage type Covered libertarian ID Effective Begin Date Effective End Date Medicare [place] Part B [id number] Unknown Unknown [employer] Medicare Part B [id number] Unknown Unknown Family History Family History data not found Medication Administered No Medication Administered data Medical Equipment No Medical Equipment data Assessments No Assessment data Reason For Visit No Reason For Visit data Review of Systems No Review of Systems data Physical Exam No Physical Exam data History of Present Illness No History of Present Illness data Advance Directives No Advance Directive data
--- OUTSIDE RECORDS SUMMARY | 2025-02-13 19:25 | XMS_ITS | Clinical Summary ---
Author Organization [facility] Address [address] [place] [address] Care Team Providers Care Manager In Training Name Role Phone Kandace Mckeon Primary Care Provider Parish Ruffin MD Unavailable Unavailable Kwaku Wild MD Unavailable [phone] Kari Hunt PhD, LP Unavailable + [phone] Allergies Active Allergy Reactions Criticality Noted Date [...] AT BEDTIME 28 Tablet 12 025 Active clotrimazole (Antifungal (Clotrimazole)) 1 % creamIndications: Tinea pedis of left foot APPLY TO AFFECTED AREA(S) TWICE DAILY NEEDED FOR YEAST RASH *PATIENT SELF-ADMINISTERS * 28.4 g 3 025 Active ferrous sulfate 325 mg delayed release tabletIndications :Iron deficiency anemia, unspecified iron deficiency anemia type TAKE 1 TABLET BY MOUTH DAILY WITH A MEAL 90 Tablet 3 025 Active budesonide (PULMICORT RESPULES) 0.5 mg/2 mL neb suspensionIndicat ions:Mild persistent asthma without complication (HC) INHALE 1 AMPULE BY MOUTH VIA NEBULIZER TWICE DAILY 360 mL 025 Active NebulizerIndicati ons:Mild persistent asthma without complication (HC) Nebulizer, reuseable neb kit x 1, mask x 1, filters x 1. Frequency of use: twice daily; Medication: budesondie Length of need: 99 months 1 Each 2 025 Active NebulizerIndicati ons:Mild persistent asthma without complication (HC) As directed 1 Each two times daily. 60 Each 10 025 Active glipiZIDE (GLUCOTROL) 10 mg tabletIndications :Uncontrolled type 2 diabetes mellitus with hyperglycemia (HC) TAKE 1 TABLET BY MOUTH DAILY BEFORE A MEAL 90 Tablet 025 Active Eliquis 5 mg tabletIndications :Paroxysmal atrial fibrillation (HC) TAKE 1 TABLET BY MOUTH TWICE DAILY 60 Tablet 1 025 Active rizatriptan (MAXALT) 5 mg tabletIndications :Migraine without aura and without status migrainosus, not intractable TAKE 1 TABLET BY MOUTH DAILY NEEDED *GIVE AT A MINIMUM OF 2 HRS APART*MAX OF 30MG PER 24 HRS* 12 Tablet 5 025 Active escitalopram oxalate (LEXAPRO) 10 mg tabletIndications :Depression with anxiety TAKE 1&1/2 TABLETS BY MOUTH EVERY MORNING (15MG) 135 Tablet 1 025 Active escitalopram oxalate (LEXAPRO) 10 mg tabletIndications :Depression with anxiety Take 1.5 Tablets (15 mg) by mouth once daily in the morning. 135 Tablet 025 2024 Discontinued Active Problems Patient [...] Encounters Date Type Department Care Team Description 02/03/2025 Refill [facility] [address] [facility] [place] [address] Kandace Mckeon DO Refill Request (Escitalopram Oxalate) 01/27/2025 4:00 PM ELECTRICAL DESIGN TECHNOLOGIST Ancillary Procedure [facility] [address] [place] [address] 01/27/2025 3:45 PM ELECTRICAL DESIGN TECHNOLOGIST Ancillary Procedure [facility] [address] [facility] [place] [address] 01/27/2025 3:20 PM ELECTRICAL DESIGN TECHNOLOGIST Office Visit [facility] [address] [place] [address] Nitish Juárez MD Musculoskeletal Problem (Fell on 01/19/25, left lower leg and left foot swollen) 01/27/[address] [address] Kandace Mckeon DO Results 01/27/2025 Travel 01/12/[address] [address] Kandace Mckeon DO Refill Request (Rizatriptan) 01/10/[address] [address] Kandace Mckeon DO Refill Request (Rizatriptan tab 5mg) 12/28/2024 2:45 PM CDT Ancillary Procedure [address] [address] 12/28/2024 Travel 12/18/2024 Orders Only [facility] Scanner 1 scan: (1-Ord) [facility], XR CHEST 2V, 12/18/2024 12/07/[address] [address] Kandace Mckeon DO Refill Request (Glipizide, Eliquis) 12/06/2024 3:55 PM CDT Office Visit [address] [address] Kandace Mckeon DO Depression; Anxiety 12/06/2024 Travel 12/02/2024 1:00 PM CDT Office Visit [address] [address] Mark Barrow, [facility] Visit 12/02/2024 Travel 12/01/[address] [address] Kandace Mckeon DO Anxiety (Depression and anxiety. Didn't know Dr. Detert was sick and out of clinic today) from Last 3 Months Immunizations Immunization Administration [...] on file Legal Sex Female 5:26 AM ELECTRICAL DESIGN TECHNOLOGIST Gender Identity Not on file Sexual Orientation Not on file Obstetrics History Last Filed Vital Signs Vital Sign Reading Time Taken Comments Blood Pressure 141/76 01/27/2025 3:02 PM ELECTRICAL DESIGN TECHNOLOGIST Pulse 75 01/27/2025 3:02 PM ELECTRICAL DESIGN TECHNOLOGIST Temperature 36.8 C (98.2 F) 01/27/2023 3:09 PM ELECTRICAL DESIGN TECHNOLOGIST Respiratory Rate 16 07/31/2022 3:18 PM CDT Oxygen Saturation 96% 01/27/2025 3:02 PM ELECTRICAL DESIGN TECHNOLOGIST Inhaled Oxygen Concentration - - Weight 91.5 kg (201 lb 11.2 oz) 01/27/2025 3:02 PM ELECTRICAL DESIGN TECHNOLOGIST Height 163 cm (5' 4.17) 06/12/2022 2:26 PM CDT Body Mass Index 34.44 06/12/2022 2:26 PM CDT Plan of Treatment Upcoming Encounters Date Type Department Care Team (Late st Contact Info) Description 02/14/2025 1:25 PM ELECTRICAL DESIGN TECHNOLOGIST Office Visit [facility] [address] [place] [address] Kandace Mckeon DO [address] [place] [address] Health Maintenance Due Date Last Done Comments RSV vaccine for adults or (1 - Risk 50-74 years 1-dose series) 2007 Zoster (shingles) series for age 50+ (1 of 2) 2007 BMI (ht and wt on same day) for age 18+ 06/13/2023 06/12/2022, 08/08/2021, 09/04/2020, Additional history exists Medicare Wellness for age 65+ 06/13/2023 06/12/2022, 10/11/2015, 10/07/2014, Additional history exists Influenza Vaccine (#1) 2024 , 01/03/2023, 01/03/2023, Additional history exists Mammogram for age 45-75 07/21/2025 07/22/19, 04/30/2023, 11/13/2021, Additional history exists Depression screening [...] providers by 06/21/17 General Yes Reny Pratt, EXPLOSIVE OPERATOR Note: - appointment with dental provider by 06/21/17 - appointment for DM eye exam and new eyeglasses by 06/21/17 Healthcare Directive General Yes Reny Pratt LSW Note: - work on completing healthcare directive by end of ACT episode Procedures Procedure Name Priority Date/Time Associated Diagnosis Comments XR FOOT 3 VIEWS LEFT Routine 01/27/2025 3:49 PM ELECTRICAL DESIGN TECHNOLOGIST Injury of left foot, initial encounter XR ANKLE 3 VIEWS LEFT Routine 01/27/2025 3:48 PM ELECTRICAL DESIGN TECHNOLOGIST Injury of left ankle, initial encounter MR HEAD BRAIN WO Routine 12/28/2024 3:21 PM CDT Communicating hydrocephalus (HC) SCAN-RADIOLOGY REPORT 12/18/2024 12:00 AM CDT XR MAMMO CRYSTAL BILAT SCREEN Routine 07/21/2024 1:33 PM CDT Visit for screening mammogram XR DXA BONE DENSITY 2 SITES AXIAL Routine 07/19/2024 1:06 PM CDT Post-menopausal LIPID PANEL W REFLEX MEASURED LDL Routine 04/16/2024 12:05 PM ELECTRICAL DESIGN TECHNOLOGIST HTN (hypertension) Controlled type 2 diabetes mellitus without complication, without long-term current use of insulin (HC) SDNA-FIT EXTERNAL (COLOGUARD) Routine 12/11/2022 2:15 PM CDT Screening for colon cancer ANTI HCV Routine 10/07/2014 4:00 PM CDT Need for hepatitis C screening test from Last 3 Months or Most Recently Relevant to Health Maintenance Results * XR FOOT 3 VIEWS LEFT (01/27/2025 3:49 PM ELECTRICAL DESIGN TECHNOLOGIST) Anatomical Region Laterality Modality FEET, FOOT L Computed Radiogr aphy 01/27/2025 4:06 PM ELECTRICAL DESIGN TECHNOLOGIST Narrative 01/27/2025 4:06 PM ELECTRICAL DESIGN TECHNOLOGIST For Patients: As a result of the s Act, medical imaging exams and procedure reports are released immediately into your electronic medical record. You may view this report before your referring provider. If you have questions, please contact your health care provider. Indication: Injury and pain Technique: Left foot 3 views. Comparison: 12/25/2009 Findings: Bunion. Midfoot alignment normal. No acute fracture. Plantar calcaneal spur. Impression: No sign of acute fracture. Dictated by Ramin Ag MD @ 01/27/2025 4:06:02 PM (Electronically Signed) Procedure Note Ramin Ag MD - 01/27/2025 For Patients: As a result of the s , medical imagingexams and procedure reports are released immediately into your electronicmedical record. You may view this report before your referring provider.If you have questions, please contact your health care provider. Indication: Injury and pain Technique: Left foot 3 views. Comparison: 12/25/2009 Findings: Bunion. Midfoot alignment normal. No acute fracture. Plantar calcanealspur. Impression: No sign of acute fracture. Dictated by Ramin Ag MD @ 01/27/2025 4:06:02 PM (Electronically Signed) us Nitish Juárez MD GENERAL IMAGING Final Re sult * XR ANKLE 3 VIEWS LEFT (01/27/2025 3:48 PM ELECTRICAL DESIGN TECHNOLOGIST) Anatomical Region Laterality Modality ANKLES, ANKLE L Computed Radiogr aphy 01/27/2025 4:04 PM ELECTRICAL DESIGN TECHNOLOGIST Narrative 01/27/2025 4:04 PM ELECTRICAL DESIGN TECHNOLOGIST For Patients: As a result of the s Act, medical imaging exams and procedure reports are released immediately into your electronic medical record. You may view this report before your referring provider. If you have questions, please contact your health care provider. Indication: Injury and pain Technique: Left ankle 3 views. Comparison: None Findings: No fracture. Plantar calcaneal spur with adjacent densities. No joint effusion. Alignment normal. Intact mortise. Impression: No sign of acute fracture. Dictated by Ramin Ag MD @ 01/27/2025 4:04:47 PM (Electronically Signed) Procedure Note Ramin Ag MD - 01/27/2025 For Patients: As a result of the Cures Act, medical imagingexams and procedure reports are released immediately into your electronicmedical record. You may view this report before your referring provider.If you have questions, please contact your health care provider. Indication: Injury and pain Technique: Left ankle 3 views. Comparison: None Findings: No fracture. Plantar calcaneal spur with adjacent densities. No jointeffusion. Alignment normal. Intact mortise. Impression: No sign of acute fracture. Dictated by Ramin Ag MD @ 01/27/2025 4:04:47 PM (Electronically Signed) us Nitish Juárez MD GENERAL IMAGING Final Re sult * MR BRAIN WO CONTRAST (12/28/2024 3:21 PM CDT) Anatomical Region Laterality Modality BRAIN, HEAD Magnetic Resonan ce 12/28/2024 5:44 PM CDT Narrative 12/28/2024 5:44 PM CDT For Patients: As a result of the Cures Act, medical imaging exams and procedure reports are released immediately into your electronic medical record. You may view this report before your referring provider. If you have questions, please contact your health care provider. Indication: Communicating hydrocephalus. Technique: Multiplanar multisequence noncontrast MR images of the brain. Comparison: MRI brain 11/06/2023. Findings: Drzs-qz-daoskcln enlargement of the supratentorial ventricular system slightly out of proportion to the degree of cerebral sulcal prominence, not significantly changed. There is equivocal sulcal crowding at the vertex. Stable chronic infarctions within the left middle frontal gyrus, left parietal lobe, superior right temporal lobe, and left cerebellar hemisphere. Stable scattered and confluent FLAIR hyperintensities in the supratentorial white matter, typical for mild chronic microvascular ischemic changes. No diffusion restriction to suggest acute infarction. No intracranial hemorrhage or pathologic extra-axial fluid collection. The major arterial flow voids of the skull base are preserved. Thinning of the ocular lenses. Paranasal sinuses are well aerated. Small right and trace left mastoid effusions. Impression: 1. No acute intracranial abnormality. No significant change compared to the prior MRI. 2. 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 3. Mild chronic microvascular ischemic changes. 4. Lgdr-ml-xprmpzzw enlargement of the supratentorial ventricular system slightly out of proportion to the degree of cerebral sulcal prominence may be secondary to central predominant volume loss, though raises the possibility of normal pressure hydrocephalus in the appropriate clinical setting. Dictated by Santiago Sebastian MD @ 12/28/2024 5:44:46 PM (Electronically Signed) Procedure Note Santiago Sebastian MD - 12/28/2024 For Patients: As a result of the Cures Act, medical imagingexams and procedure reports are released immediately into your electronicmedical record. You may view this report before your referring provider.If you have questions, please contact your health care provider. Indication: Communicating hydrocephalus. Technique: Multiplanar multisequence noncontrast MR images of the brain. Comparison: MRI brain 11/06/2023. Findings: Wjzc-xp-ljxycjvs enlargement of the supratentorial ventricular systemslightly out of proportion to the degree of cerebral sulcal prominence,not significantly changed. There is equivocal sulcal crowding at thevertex. Stable chronic infarctions within the left middle frontal gyrus,left parietal lobe, superior right temporal lobe, and left cerebellarhemisphere. Stable scattered and confluent FLAIR hyperintensities in thesupratentorial white matter, typical for mild chronic microvascularischemic changes. No diffusion restriction to suggest acute infarction. No intracranialhemorrhage or pathologic extra-axial fluid collection. The major arterial flow voids of the skull base are preserved. Thinning ofthe ocular lenses. Paranasal sinuses are well aerated. Small right andtrace left mastoid effusions. Impression: 1. No acute intracranial abnormality. No significant change compared tothe prior MRI. 2. Chronic infarctions in the supratentorial and infratentorialparenchyma. 3. Mild chronic microvascular ischemic changes. 4. Marx-ku-rvadhxgt enlargement of the supratentorial ventricular systemslightly out of proportion to the degree of cerebral sulcal prominence maybe secondary to central predominant volume loss, though raises thepossibility of normal pressure hydrocephalus in the appropriate clinicalsetting. Dictated by Santiago Sebastian MD @ 12/28/2024 5:44:46 PM (Electronically Signed) us Dimitri Rivas MD MR Final Res ult * SCAN-RADIOLOGY REPORT (12/18/2024 12:00 AM CDT) Anatomical Region Laterality Modality Other us Scanner OTHER Final Result * XR [...] care provider. XR MAMMO CRYSTAL BILAT SCREEN [[id number]] CLINICAL HISTORY: This is an asymptomatic 69 y.o. patient. INDICATION FOR EXAM: Mammogram Screening. TECHNIQUE: CC and MLO views were obtained. This study was evaluated with the assistance of Computer-Aided Detection. Breast Tomosynthesis was used in interpretation. COMPARISON FILM: Yes 04/30/23 [facility] 11/13/21 [facility] FINDINGS: There are scattered areas of fibroglandular [...] recommended in 3-5 years. Christina Flores PA-C [facility] 07/23/2024 Narrative 07/23/2024 4:36 PM CDT For Patients: Results are automatically released to your [facility] ([facility]) account once available, in compliance with federal regulations. This means that you may see your results before your provider has had a chance to review them. Please allow 2-3 business days for your provider to comment on the results. XR DXA Bone Mineral Density (BMD) EXAM LOCATION: [address] [address] PATIENT NAME: Juni Metcalf DATE OF : [...] two scanners are made by the same baggage security checker. PROCEDURE: Dual-energy x-ray absorptiometry performed with routine [...] W REFLEX MEASURED LDL (04/16/2024 12:05 PM ELECTRICAL DESIGN TECHNOLOGIST) [facility] CHOLESTEROL, TOTAL 202(H) <200 mg/dL [facility] HDL CHOLESTEROL 56 > OR = 50 mg/dL [facility] TRIGLYCERIDES 137 <150 mg/dL [facility] LDL-CHOLESTEROL 121(H) mg/dL (calc) [facility] [...] LDL-C. Jonathan MONROY et al. MORAIMA. 2013;310(19): 8292-6868 (http://education.MyCordBank.com/faq/VXM375) CHOL/HDLC RATIO 3.6 <5.0 (calc) [facility] NON HDL CHOLESTEROL 146(H) <130 mg/dL (calc) [facility] Comment: For patients with diabetes plus 1 major ASCVD risk factor, treating to a non-HDL-C goal of <100 mg/dL (LDL-C of <70 mg/dL) is considered a therapeutic option. Blood BLOOD SPECIMEN / Unknown 04/16/2024 12:05 PM ELECTRICAL DESIGN TECHNOLOGIST 04/16/2024 12:06 PM ELECTRICAL DESIGN TECHNOLOGIST Kandace Wardt DO CHEMISTRY Final Resul t [employer] [facility] [address] [place] [address], [facility] [address] [place] [address] * SDNA-FIT EXTERNAL (COLOGUARD) (12/11/2022 2:15 PM CDT) NONINV COLON CA DNA+OCC BLD SCRN STL-IMP Negative Negative 12/17/2022 9:02 PM CDT Radionomy (CLIA #:[id number]) Comment: NEGATIVE TEST RESULT. A negative Cologuard [...] Lucas et al, N Engl J Med 2014;370(14):4768-7813) The normal value (reference range) for this assay is negative. COLOGUARD RE-SCREENING RECOMMENDATION: Periodic colorectal cancer screening is an important part of preventive healthcare for asymptomatic individuals at average risk for colorectal cancer. Following a negative Cologuard result, the [place] [employer] and U.S. Multi-Society Task Force screening guidelines recommend a Cologuard re-screening interval of 3 years. References: [place] [employer] Guideline for Colorectal Cancer Screening: https://www.cancer.org/cancer/lxyng-aikodu-fegjas/rxqbezqoc-bnhjohkzn-syqeyge/ac s-rec ommendations.html.; Harish DK, Gold WARREN, Skyler MAHER, Colorectal Cancer Screening: Recommendations for Physicians and Patients from the U.S. Multi-Society Task Force on Colorectal Cancer Screening , Am J Gastroenterology 2017; 112:4388-7383. TEST DESCRIPTION: Composite algorithmic analysis of stool [...] (Shahriar Day al, N Engl J Med 2014;370(14):9059-8842.) Cologuard may produce a false negative or false positive result (no colorectal cancer or precancerous polyp present at colonoscopy follow up). A negative Cologuard test result does not guarantee the absence of CRC or advanced adenoma (pre-cancer). The current Cologuard screening interval is every 3 years. ([place] [employer] and U.S. Multi-Society Task Force). Cologuard performance data in a 10,000 patient pivotal study using colonoscopy as the reference method can be accessed at the following location: www.exactlabs.com/results. Additional description of the Cologuard test process, warnings and precautions can be found at www.cologuard.com. Stool specimen (specimen) (Rectum) 12/11/2022 2:15 PM CDT 12/13/2022 6:23 PM CDT Kandace Venus Detert DO URINE Final Resul t Radionomy (CLIA #:[id number]) [place] [address], * ANTI HCV [[id number]] (10/07/2014 4:00 PM CDT) HEPATITIS C ANTIBODY Non-Reacti ve Non-Reacti ve 10/08/2014 4:38 PM CDT [facility] Blood specimen (specimen) BLOOD SPECIMEN / Unknown Venipuncture / Unknown 10/07/2014 4:00 PM CDT 10/07/2014 4:00 PM CDT Narrative [facility] - 10/08/2014 4:38 PM CDT Antibodies to HCV not detected; does not exclude the possibility of exposure to HCV. Kandace Donovan Detert DO SEND OUTS Final Resul t [facility] [address] [place] [address], [place] from Last 3 Months or Most Recently Relevant to Health Maintenance Insurance [facility] MEDICARE PPS Care Teams Manager In Training Relationship Specialty Start Date End Date Kandace Mckeon DO [address] [place] [address] PCP - General 12/25/09 Parish Ruffin MD Pulmonology Pulmonary Medicine 12/04/11 Kwaku Wild MD [address] [place] [id number] Physical Medicine and Rehabilitation 10/07/14 Kari Hunt, PhD, [address] [place] [address] Psychologist Psychology 12/10/16
[2025-02-13 19:46] VITALS: BP 143/91; PULSE 87; RESP 16; TEMP 35.9; O2SAT 96; BMI 30.8
--- NOTE | 2025-02-13 20:04 | ED.SKABFB ---
HPI - Skin/Abscess/Foreign Bdy General Date Seen: 02/13/25 Chief complaint: Skin/Abscess/Foreign Body Stated complaint: 24+ hour bleeding cut Time Seen by Provider: 02/13/25 19:57 Source: patient Mode of arrival: ambulatory Limitations: no limitations History of Present Illness HPI narrative: Patient is a 69-year-old female presenting to the emergency department for bleeding wound on her left heel. She states she picked the scab yesterday in the bleeding has been persistent since then. States it has been going on for about 24 hours at this time. Last check the wound at 14:30. Has not changed the dressing since then. She is here from [place] with 1 of the staff. No other concerns noted at this time. She is on Eliquis Related Data Home Medications ?Medication ?Instructions ?Recorded ?Confirmed acetaminophen 325 mg tablet 650 mg PO Q6H PRN pain 12/27/21 12/10/23 albuterol sulfate 90 mcg/actuation 2 puff inhalation Q4H PRN 12/27/21 09/12/24 aerosol inhaler (Ventolin HFA) amitriptyline 50 mg tablet 50 mg PO HS 12/27/21 09/12/24 amlodipine 10 mg tablet 10 mg PO HS 12/27/21 09/12/24 antacid See Rx Instructions PO DAILY PRN 12/27/21 12/10/23 budesonide 0.5 mg/2 mL suspension 0.5 mg inhalation BID 12/27/21 09/12/24 for nebulization diphenhydramine HCl 25 mg capsule 25 mg PO Q8H PRN allergic symptoms 12/27/21 12/10/23 (Banophen) glipizide 5 mg tablet 5 mg PO DAILY 12/27/21 12/10/23 hydroxyzine HCl 25 mg tablet 25 mg PO HS PRN anxiety 12/27/21 12/10/23 levothyroxine 25 mcg tablet 25 mcg PO DAILY 12/27/21 09/12/24 metoprolol succinate 50 mg 50 mg PO DAILY 12/27/21 09/12/24 tablet,extended release 24 hr nitroglycerin 0.4 mg sublingual 0.4 mg sublingual Q5M PRN 12/27/21 12/10/23 tablet rizatriptan 5 mg tablet 5 mg PO DAILY PRN 12/27/21 09/12/24 simvastatin 20 mg tablet 20 mg PO HS 12/27/21 09/12/24 naproxen sodium 220 mg tablet (All 220 mg PO .once weekly PRN 01/08/22 12/10/23 Day Pain Relief) calcium carbonate 200 mg PO Q4H PRN 04/29/22 09/12/24 aspirin 325 mg tablet,delayed 325 mg PO DAILY 01/15/23 09/12/24 release escitalopram oxalate 5 mg tablet 5 mg PO DAILY 01/15/23 12/10/23 escitalopram oxalate 10 mg tablet 10 mg PO DAILY 05/12/23 09/12/24 lactulose 10 gram/15 mL oral ml PO 12/10/23 12/10/23 solution Previous Rx's ?Medication ?Instructions ?Recorded omeprazole 40 mg capsule,delayed 40 mg PO DAILY #14 caps 01/08/22 release apixaban 5 mg tablet (Eliquis) 5 mg PO BID #60 tabs 10/10/24 Allergies Allergy/AdvReac Type Severity Reaction Status Date / Time duloxetine AdvReac Mild sleep Verified 09/12/24 11:26 disturbance and fatigue Review of Systems Narrative: Pertinent systems reviewed and were negative unless stated in HPI PFSH [facility] Medical History PTSD (post-traumatic stress disorder) ?F43.10 - Post-traumatic stress disorder, unspecified (ICD-10) Atrial fibrillation ?I48.91 - Unspecified atrial fibrillation (ICD-10) 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 - Dependent personality disorder (ICD-10) Hypertensive heart disease with heart failure ?I11.0 - Hypertensive heart disease with heart failure (ICD-10) Clear cell carcinoma of left kidney ?C64.2 - Malignant neoplasm of left kidney, except renal pelvis (ICD-10) Diabetes mellitus with hyperglycemia, without long-term current use of insulin ?E11.65 - Type 2 diabetes mellitus with hyperglycemia (ICD-10) Chronic constipation ?K59.09 - Other constipation (ICD-10) CHAPITO (obstructive sleep apnea) ?G47.33 - Obstructive sleep apnea (adult) (pediatric) (ICD-10) Mild persistent asthma ?J45.30 - Mild persistent asthma, uncomplicated (ICD-10) Migraine ?G43.909 - Migraine, unspecified, not intractable, without status migrainosus (ICD-10) Hypertension ?I10 - Essential (primary) hypertension (ICD-10) Hiatal hernia ?K44.9 - Diaphragmatic hernia without obstruction or gangrene (ICD-10) GERD (gastroesophageal reflux disease) ?K21.9 - Gastro-esophageal reflux disease without esophagitis (ICD-10) Fibromyalgia ?M79.7 - Fibromyalgia (ICD-10) Depression ?F32.A - Depression, unspecified (ICD-10) Chronic fatigue syndrome ?G93.32 - Myalgic encephalomyelitis/chronic fatigue syndrome (ICD-10) Surgical History H/O: hysterectomy ?Z90.710 - Acquired absence of both cervix and uterus (ICD-10) History of cholecystectomy ?Z90.49 - Acquired absence of other specified parts of digestive tract (ICD-10) H/O section ?Z98.891 - History of uterine scar from previous surgery (ICD-10) S/P appendectomy ?Z90.49 - Acquired absence of other specified parts of digestive tract (ICD-10) Social History Smoking Status: Never smoker Do you use any of these nicotine containing products: None Second hand tobacco smoke exposure: No How often do you have a drink containing alcohol: never How often do you have six or more drinks on one occasion: Never AUDIT-C Alcohol total score: 0 Non-prescribed substance use: denies use service: No Exam Narrative: Exam Narrative: Const: Well-nourished, Well-developed, in no distress Eyes: PERRL, no conjunctival injection, and symmetrical lids HENT: Atraumatic external nose and ears. Moist mucous membranes. MSK:Extremities w/o deformity, Normal Active ROM Skin: Warm, Dry. 1 cm superficial area of avulsed skin to left heel. Not currently bleeding. After washing the area vigorously bleeding did not return Neuro: Normal Muscle tone, No focal neurological deficits. Psych: Awake, Alert, & Oriented x3. Appropriate mood and affect. Const: Vital Signs, click to edit/add: Vital Signs - 24 hr 02/13/25 19:46 Temperature 96.7 F L Pulse Rate [Pulse Oximeter] 87 Respiratory Rate 16 Blood Pressure [Ri ght Upper Arm] 143/91 H Pulse Oximetry 96 Oxygen Delivery Me thod Room Air Course Vital Signs Vital signs: Initial Vital Signs Temperature 96.7 F L 02/13/25 19:46 Temperature Source Temporal Artery Scan 02/13/25 19:46 Pulse Rate 87 02/13/25 19:46 Pulse Rhythm Regular 02/13/25 19:46 Respiratory Rate 16 02/13/25 19:46 Blood Pressure 143/91 H 02/13/25 19:46 Blood Pressure Mean 108 H 02/13/25 19:46 Blood Pressure Position Sitting 02/13/25 19:46 Pulse Oximetry 96 02/13/25 19:46 Oxygen Delivery Method Room Air 02/13/25 19:46 Vital Signs Temperature 96.7 F L 02/13/25 19:46 Pulse Rate 87 02/13/25 19:46 Respiratory Rate 16 02/13/25 19:46 Blood Pressure 143/91 H 02/13/25 19:46 Pulse Oximetry 96 02/13/25 19:46 Oxygen Delivery Method Room Air 02/13/25 19:46 Temperature 96.7 F L 02/13/25 19:46 Pulse Rate 87 02/13/25 19:46 Respiratory Rate 16 02/13/25 19:46 Blood Pressure 143/91 H 02/13/25 19:46 Pulse Oximetry 96 02/13/25 19:46 Oxygen Delivery Method Room Air 02/13/25 19:46 MDM - Skin/Abscess/Foreign Bdy MDM Narrative Medical decision making narrative: Patient is 69-year-old female on Eliquis presenting for left heel bleeding. She states it has been going on for 24 hours. On my exam the heel is no longer bleeding. I cleaned the area vigorously and bleeding did not return. I do not believe sutures are necessary at this time. Will recover the area though in use surgical foam to help prevent further bleeding. She is agreeable to this plan. She will be discharged. Discharge Plan Discharge Clinical Impression: Avulsion of skin of foot Qualifiers: Encounter type: initial encounter Laterality: left Qualified Code(s): S91.302A - Unspecified open wound, left foot, initial encounter Patient Disposition: Home, Self-Care Condition: Stable Additional Instructions: Keep the area covered for the next day or 2. Return to emergency department for new or worsening symptoms Prescriptions: No Action lactulose 10 gram/15 mL solution PO acetaminophen 325 mg tablet 650 mg PO Q6H PRN (Reason: pain) amitriptyline 50 mg tablet 50 mg PO HS amlodipine 10 mg tablet 10 mg PO HS budesonide 0.5 mg/2 mL suspension for nebulization 0.5 mg inhalation BID glipizide 5 mg tablet 5 mg PO DAILY levothyroxine 25 mcg tablet 25 mcg PO DAILY metoprolol succinate 50 mg tablet extended release 24 hr 50 mg PO DAILY simvastatin 20 mg tablet 20 mg PO HS antacid suspension See Rx Instructions PO DAILY PRN Rx Instructions: 15-30ml orally daily PRN; rizatriptan 5 mg tablet 5 mg PO DAILY PRN Rx Instructions: may repeat once after 2 hours albuterol sulfate [Ventolin HFA] 90 mcg/actuation HFA aerosol inhaler 2 puff INHALATION Q4H PRN diphenhydramine HCl [Banophen] 25 mg capsule 25 mg PO Q8H PRN (Reason: allergic symptoms) Rx Instructions: 1-2 caps prn hydroxyzine HCl 25 mg tablet 25 mg PO HS PRN (Reason: anxiety) nitroglycerin 0.4 mg tablet, sublingual 0.4 mg sublingual Q5M PRN Rx Instructions: max 3 tabs within 15 minutes naproxen sodium [All Day Pain Relief] 220 mg tablet 220 mg PO .once weekly PRN omeprazole 40 mg capsule,delayed release(DR/EC) 40 mg PO DAILY Qty: 14 0RF aspirin 325 mg tablet,delayed release (DR/EC) 325 mg PO DAILY escitalopram oxalate 5 mg tablet 5 mg PO DAILY escitalopram oxalate 10 mg tablet 10 mg PO DAILY calcium carbonate 200 mg calcium (500 mg) tablet,chewable 200 mg PO Q4H PRN Rx Instructions: Chew 215 mg of calcium daily as needed for indigestion or heartburn. Eliquis 5 mg tablet 5 mg PO BID Qty: 60 0RF Follow Up/Referrals: Kandace Mckeon DO [Primary Care Provider, Family Practice] Stand Alone Forms: [facility] Info Inst[facility]
--- OUTSIDE RECORDS SUMMARY | 2025-02-13 20:15 | XMS_ITS | CCD ---
Author Organization Unknown Care Team Providers Care Senior Design Engineer Name Role Phone [place], [place] Primary Care Provider Unava ilable Unavailable Chronic Care Management Unavaila ble Summary Purpose [employer] Insurance Providers Payer name Policy type / Coverage type Covered green party ID Effective Begin Date Effective End Date Medicare [place] Medicare Part B [id number] Unknown Unknown [employer] Medicare Part B [id number] Unknown Unknown Family History Family History data [...]
--- OUTSIDE RECORDS SUMMARY | 2025-02-13 20:15 | XMS_ITS | CCD ---
Author Organization Unknown Care Team Providers Care Spa Technician Name Role Phone Imaging Engineer, [place] Primary Care Provider Unava ilable Unavailable Chronic Care Management Unavaila ble Summary Purpose [employer] Insurance Providers Payer name Policy type / Coverage type Covered democrat ID Effective Begin Date Effective End Date [place] Medicare Part B [id number] Unknown Unknown [employer] Medicare Part B [id number] Unknown Unknown Family History Family History data [...]
== END 2025-02-13 20:56 | disposition home or self-care (01) ==
LOC: ED 20:14
PROVIDERS: Emergency Provider Student in an Organized Health Care Education/Training Program; PCP Family Medicine
DX: S91.302A Unspecified open wound, left foot, initial encounter (principal); Z79.01 Long term (current) use of anticoagulants; X58.XXXA Exposure to other specified factors, initial encounter
CPT/HCPCS: 99283

== ENCOUNTER 2025-03-08 03:39 | Outpatient (CLI) | payer OTHER, SELFPAY | END 2025-03-08 03:40 | disposition home or self-care (01) | LOC: AMB 03-09 13:40 | PROVIDERS: PCP Family Medicine; Visit Provider Family Medicine | DX: R07.89 Other chest pain (principal) | CPT/HCPCS: A0425; A0427 ==

== ENCOUNTER 2025-03-08 04:07 | Emergency (ER) | payer OTHER, SELFPAY ==
--- OUTSIDE RECORDS SUMMARY | 2025-03-08 04:09 | XMS_ITS | CCD ---
Author Organization Unknown Care Team Providers Care Ground Instructor Basic Name Role Phone Senior Officer, [place] Primary Care Provider Unava ilable Unavailable Chronic Care Management Unavaila ble Summary Purpose [employer] Insurance Providers Payer name Policy type / Coverage type Covered democrat ID Effective Begin Date Effective End Date Medicare [place] Medicare Part B [id number] Unknown Unknown [employer] Medicare Part B [id number] Unknown Unknown Family History Family History data [...]
--- OUTSIDE RECORDS SUMMARY | 2025-03-08 04:10 | XMS_ITS | Clinical Summary ---
Author Organization [facility] Address [address] [place] [address] Care Team Providers Care Physician/Internist Name Role Phone Kandace Mckeon Primary Care Provider Parish Ruffin MD Unavailable Unavailable Kwaku Wild MD Unavailable [phone] Kari Hunt PhD, LP Unavailable + [phone] Allergies Active AllergyReactionsCriticalityNoted DateCommentsDuloxetineOther - Describe In Comment Field01/19/2021 sleep disturbance and fatigue. Medications MedicationSigDispense QuantityRefillsLast FilledStart DateEnd DateStatus Trolamine Salicylate (ASPERCREME) 10 % lotion Apply 1 Applicator topically to affected area(s) 4 times daily if needed (pain in legs or where needed).Active calcium carbonate (ANTACID CALCIUM) 215 mg calcium (500 mg) chew Chew 2-4 tablets by mouth between meals and at bedtime as needed. Active medication order composer Indications:HTN (hypertension)Resident is to self check blood pressure once weekly or as needed. 1 Each 08/26/2019Active nystatin powder (MYCOSTATIN) powder Indications:Tinea crurisApply 1 Strip topically to affected area(s) 3 times daily. 60 g 09/02/2019Active ouweqoa-nywijlqswayed-ldyoaxjz (EXCEDRIN EX STR) 250-250-65 mg Indications:Migraine without aura and without status migrainosus, not intractableTake 1 Tablet by mouth every 6 hours if needed for Headache. Max acetaminophen dose: 4000mg in 24 hrs.ctive Gavilax 17 gram/dose powder Indications:Chronic constipationAs directed 1 scoop (17 g) once daily if needed for Constipation. Mix 17g in 4-8 oz of water or juice and drink daily as needed. 1530 g 02/28/2021ctive sennosides (SENNA) 8.6 mg tablet Take 8.6 mg by mouth two times daily.12/27/2021ctive Walker - 4 wheels Indications:Fibromyalgia,Chronic midline low back pain with left-sided sciatica For home use. Length of need: 99 with seat 1 Each 04/15/2022ctive psyllium powd Indications:Chronic constipationMix 1 tsp in liquid then take by mouth once daily. 283 g 11006/13/2022ctive loperamide (IMODIUM) 2 mg capsule Indications:Chronic diarrheaTAKE 1 CAPSULE BY MOUTH EVERY MORNING WITH FIRST MEAL OF DAY *MAX 16MG IN 24 HOURS* 28 Capsule 12004/03/2023ctive lancets (Accu-Chek Softclix Lancets) Indications:Type 2 diabetes mellitus with hyperglycemia, without long-term current use of insulin (HC)As directed two times daily. Dispense item covered by pt ins. E11.9 NIDDM type II - Test 2 times/day. Reason: High A1C 200 Each ctive blood sugar diagnostic (Blood Glucose Test) strip Indications:Type 2 diabetes mellitus with hyperglycemia, without long-term current use of insulin (HC)Dispense test strips covered by insurance Test 2 times per day. 200 Each ctive blood-glucose meter Indications:Type 2 diabetes mellitus with hyperglycemia, without long-term current use of insulin (HC)Dispense meter, test strips, lancets covered by pt ins.Test 2 times/day. E11.9 NIDDM type II Reason: High A1C 1 Each 07/27/2023ctive medication order composer banofen 25 mg PRNActive nitroglycerin (NITROSTAT) 0.4 mg sublingual tablet Indications:Hypertensive heart disease with heart failure (HC)Place 1 Tablet (0.4 mg) under the tongue every 5 minutes if needed for Chest Pain. Up to 3 tablets in 15 minutes. 25 Tablet 1025Active acetaminophen (TYLENOL) 325 mg tablet Indications:Chronic midline low back pain with left-sided sciaticaTAKE 2 TABLETS BY MOUTH EVERY 4-6 HOURS NEEDED FOR PAIN 60 Tablet 5Active Nebulizer Indications:Mild persistent asthma without complication (HC)Nebulizer, reuseable neb kit x 1, mask x 1, filters x 1. Frequency of use: twice daily; Medication: budesondie Length of need: 99 months 1 Each 5Active Nebulizer Indications:Mild persistent asthma without complication (HC)As directed 1 Each two times daily. 60 Each 1005Active albuterol HFA (Ventolin HFA) 90 mcg/actuation inhaler Indications:Mild persistent asthma without complication (HC)INHALE 2 PUFFS BY MOUTH EVERY 4 HOURS NEEDED 18 g 5Active amitriptyline 50 mg tablet Indications:Sleep disorderTake 1 Tablet (50 mg) by mouth at bedtime. 28 Tablet 5Active amLODIPine (NORVASC) 10 mg tablet Indications:HTN (hypertension)Take 1 Tablet (10 mg) by mouth at bedtime. 28 Tablet 5Active aspirin enteric coated 325 mg tablet Indications:Atrial fibrillation, unspecified type (HC)Take 1 Tablet (325 mg) by mouth once daily with a meal. 90 Tablet 5Active budesonide (PULMICORT RESPULES) 0.5 mg/2 mL neb suspension Indications:Mild persistent asthma without complication (HC)INHALE 1 AMPULE BY MOUTH VIA NEBULIZER TWICE DAILY 360 mL 5Active calcium carbonate-vitamin D3 (500 mg-400 units) (Calcium 500 With D) tablet Indications:Osteopenia, unspecified locationTake 1 Tablet by mouth once daily. 28 Tablet 5Active cholecalciferol (Vitamin D3) 25 mcg (1,000 unit) chew chewable tablet Indications:Osteopenia, unspecified locationChew 1 Tablet (1,000 units) by mouth once daily. 40 units = 1 mcg (1000 units = 25 mcg) 90 Tablet 5Active clotrimazole (Antifungal (Clotrimazole)) 1 % cream Indications:Tinea pedis of left footAPPLY TO AFFECTED AREA(S) TWICE DAILY NEEDED FOR YEAST RASH *PATIENT SELF-ADMINISTERS* 28.4 g 5Active apixaban (Eliquis) 5 mg tablet Indications:Paroxysmal atrial fibrillation (HC)Take 1 Tablet (5 mg) by mouth two times daily. 180 Tablet 5Active escitalopram oxalate (LEXAPRO) 10 mg tablet Indications:Depression with anxietyTAKE 1&1/2 TABLETS BY MOUTH EVERY MORNING (15MG) 135 Tablet 5Active ferrous sulfate 325 mg delayed release tablet Indications:Iron deficiency anemia, unspecified iron deficiency anemia typeTake 1 Tablet (325 mg) by mouth once daily with a meal. 90 Tablet 5Active glipiZIDE (GLUCOTROL) 10 mg tablet Indications:Uncontrolled type 2 diabetes mellitus with hyperglycemia (HC)TAKE 1 TABLET BY MOUTH DAILY BEFORE A MEAL 90 Tablet 5Active hydrOXYzine HCL (ATARAX) 25 mg tablet Indications:Depression with anxietyTake 1 Tablet (25 mg) by mouth at bedtime if needed for Anxiety. 30 Tablet 5Active Lubricant Eye (PG-PEG 400) ophthalmic Indications:Dry eyes, bilateralPlace 1-2 Drops into both eyes 3 times daily if needed for Dry Eyes. 10 mL 5Active magnesium oxide (MAG-OX 400) 400 mg tablet Indications:Chronic constipationTAKE 1 TABLET BY MOUTH EVERY NIGHT AT BEDTIME 90 Tablet 5Active metoprolol succinate (TOPROL XL) 50 mg sustained-release tablet Indications:Atrial fibrillation, unspecified type (HC),Essential hypertension with goal blood pressure less than 130/80TAKE 1 TABLET BY MOUTH DAILY @NOON 90 Tablet 5Active omeprazole (PRILOSEC) 40 mg Delayed-Release capsule Indications:Hiatal hernia with GERD,Chronic GERDTake 1 Capsule (40 mg) by mouth once daily. 90 Capsule 5Active polyvinyl alcohol-povidone (Artificial Tears(pvalch-povid)) 0.5-0.6 % ophthalmic solution Indications:Chronically dry eyes, bilateralINSTILL 1 DROP IN BOTH EYES TWICE DAILY NEEDED 15 mL 5Active rizatriptan (MAXALT) 5 mg tablet Indications:Migraine without aura and without status migrainosus, not intractableTAKE 1 TABLET BY MOUTH DAILY NEEDED *GIVE AT A MINIMUM OF 2 HRS APART*MAX OF 30MG PER 24 HRS* 12 Tablet 5Active simvastatin (ZOCOR) 20 mg tablet Indications:Mixed hyperlipidemiaTake 1 Tablet (20 mg) by mouth at bedtime. 90 Tablet 5Active levothyroxine (SYNTHROID) 50 mcg tablet Indications:Hypothyroidism (acquired)Take 1 Tablet (50 mcg) by mouth before breakfast. 90 Tablet 5Active Methyl Salicylate-Menthol (Icy Hot) 30-10 % topical cream Indications:Arthralgia, unspecified jointAPPLY TOPICALLY 1 GRAM TOPICALLY EVERY 2 HOURS NEEDED 85 g 5Active polyvinyl alcohol-povidone (Artificial Tears,pvalch-povid,) 0.5-0.6 % ophthalmic solution Indications:Chronically dry eyes, bilateralINSTILL 1 DROP IN BOTH EYES TWICE DAILY NEEDED 15 mL Discontinued(Reorder (E-cancel not sent)) hydrOXYzine HCL (ATARAX) 25 mg tablet Indications:Depression with anxietyTAKE 1 TABLET BY MOUTH AT BEDTIME NEEDED FOR ANXIETY 30 Tablet Discontinued(Reorder (E-cancel not sent)) Lubricant Eye, PG-PEG 400, ophthalmic Indications:Dry eyes, bilateralPlace 1-2 Drops into both eyes 3 times daily if needed for Dry Eyes. 10 mL 6011/11/Discontinued(Reorder (E-cancel not sent)) Methyl Salicylate-Menthol (Icy Hot) 30-10 % topical cream Indications:Arthralgia, unspecified jointAPPLY TOPICALLY 1 GRAM TOPICALLY EVERY 2 HOURS NEEDED 85 g 11104/30/Discontinued(Reorder (E-cancel not sent)) amLODIPine (NORVASC) 10 mg tablet Indications:HTN (hypertension)TAKE 1 TABLET BY MOUTH EVERY NIGHT AT BEDTIME 28 Tablet 12105/10/Discontinued(Reorder (E-cancel not sent)) aspirin enteric coated (ECOTRIN) 325 mg tablet Indications:Atrial fibrillation, unspecified type (HC)TAKE 1 TABLET BY MOUTH DAILY WITH MEAL 90 Tablet /Discontinued(Reorder (E-cancel not sent)) albuterol HFA (Ventolin HFA) 90 mcg/actuation inhaler Indications:Mild persistent asthma without complication (HC)INHALE 2 PUFFS BY MOUTH EVERY 4 HOURS NEEDED 18 g 12005/10/Discontinued(Reorder (E-cancel not sent)) simvastatin 20 mg tablet Indications:Mixed hyperlipidemiaTAKE 1 TABLET BY MOUTH EVERY NIGHT AT BEDTIME 28 Tablet 12007/22/Discontinued(Reorder (E-cancel not sent)) amitriptyline 50 mg tablet Indications:Sleep disorderTAKE 1 TABLET BY MOUTH EVERY NIGHT AT BEDTIME 28 Tablet 12007/22/Discontinued(Reorder (E-cancel not sent)) metoprolol succinate 50 mg sustained-release tablet Indications:Essential hypertension with goal blood pressure less than 130/80,New onset atrial fibrillation (HC)TAKE 1 TABLET BY MOUTH DAILY @NOON 28 Tablet 120Discontinued(Reorder (E-cancel not sent)) calcium carbonate-vitamin D3 (500 mg-400 units) (Calcium 500 With D) tablet Indications:Osteopenia, unspecified locationTake 1 Tablet by mouth once daily. 28 Tablet 110Discontinued(Reorder (E-cancel not sent)) cholecalciferol (Vitamin D3) 25 mcg (1,000 unit) chew chewable tablet Indications:Osteopenia, unspecified locationChew 1 Tablet (1,000 units) by mouth once daily. 40 units = 1 mcg (1000 units = 25 mcg) 28 Tablet Discontinued(Reorder (E-cancel not sent)) levothyroxine 25 mcg tablet Indications:Hypothyroidism (acquired)TAKE 1 TABLET BY MOUTH DAILY @NOON 90 Tablet /Discontinued(Reorder (E-cancel not sent)) omeprazole 40 mg Delayed-Release capsule Indications:Hiatal hernia with GERD,Chronic GERDTAKE 1 CAPSULE BY MOUTH DAILY 90 Capsule Discontinued(Reorder (E-cancel not sent)) magnesium oxide 400 mg tablet Indications:Chronic constipationTAKE 1 TABLET BY MOUTH EVERY NIGHT AT BEDTIME 28 Tablet 1205Discontinued(Reorder (E-cancel not sent)) clotrimazole (Antifungal (Clotrimazole)) 1 % cream Indications:Tinea pedis of left footAPPLY TO AFFECTED AREA(S) TWICE DAILY NEEDED FOR YEAST RASH *PATIENT SELF-ADMINISTERS* 28.4 g Discontinued(Reorder (E-cancel not sent)) ferrous sulfate 325 mg delayed release tablet Indications:Iron deficiency anemia, unspecified iron deficiency anemia typeTAKE 1 TABLET BY MOUTH DAILY WITH A MEAL 90 Tablet Discontinued(Reorder (E-cancel not sent)) budesonide (PULMICORT RESPULES) 0.5 mg/2 mL neb suspension Indications:Mild persistent asthma without complication (HC)INHALE 1 AMPULE BY MOUTH VIA NEBULIZER TWICE DAILY 360 mL Discontinued(Reorder (E-cancel not sent)) glipiZIDE (GLUCOTROL) 10 mg tablet Indications:Uncontrolled type 2 diabetes mellitus with hyperglycemia (HC)TAKE 1 TABLET BY MOUTH DAILY BEFORE A MEAL 90 Tablet Discontinued(Reorder (E-cancel not sent)) Eliquis 5 mg tablet Indications:Paroxysmal atrial fibrillation (HC)TAKE 1 TABLET BY MOUTH TWICE DAILY 60 Tablet Discontinued(Reorder (E-cancel not sent)) rizatriptan (MAXALT) 5 mg tablet Indications:Migraine without aura and without status migrainosus, not intractableTAKE 1 TABLET BY MOUTH DAILY NEEDED *GIVE AT A MINIMUM OF 2 HRS APART*MAX OF 30MG PER 24 HRS* 12 Tablet Discontinued(Reorder (E-cancel not sent)) escitalopram oxalate (LEXAPRO) 10 mg tablet Indications:Depression with anxietyTAKE 1&1/2 TABLETS BY MOUTH EVERY MORNING (15MG) 135 Tablet Discontinued(Reorder (E-cancel not sent)) varicella-zoster PF (SHINGRIX) 50 mcg/0.5 mL intramuscular injection Inject 0.5 mL intramuscular one time for 1 dose. 0.5 mL Discontinued(*Med complete/Regimen complete/Level of care change) levothyroxine (SYNTHROID) 25 mcg tablet Indications:Hypothyroidism (acquired)TAKE 1 TABLET BY MOUTH DAILY @NOON 90 Tablet Discontinued(*Medication adjustment) Active Problems Patient Care Coordination No te Formatting of this note migh t be different from the original. My health, sons and grandchildren is what matters most to JUNI. JUNI would like her care team to know staying in situation where she is at and is interested in moving. What are JUNI's challenges, stressors, or barriers? Health and ex ProblemNoted DateDiagnosed DateMajor neurocognitive disorder due to vascular disease, without behavioral disturbance, kerktlct22/01/2025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 asxyjrmoka24/31/2024Type 2 diabetes mellitus with other specified complication, without long-term current use of kqwqfex4104/23/2023 Chronic xodfuenygcfk80/25/2022Type 2 diabetes mellitus with hyperglycemia, without long-term current use of skilrzg30/28/2022Clear cell carcinoma of left zdosxd721Dependent personality uwvqexol47/04/2021 Assessment & Plan (12/23/2023 8:08 AM CDT): out of situation with problems with this disorder. Lives [place] now. Kandace Mckeon D.O. 12/23/2023 8:08 AM New onset atrial mzlreyestufo71/19/2020Post traumatic stress disorder (PTSD) 03/20/2017Controlled type 2 diabetes mellitus without complication, without long-term current use of jjspuce2008/23/20156050Mygmrwxyyzbu04/06/2016Mild persistent nllkur1306/28/2014OSA AHI-11 positional, 10/24/2009, 04/01/1100Chest pain, aiaoafajbaf24/28/2010 Overview (08/18/2015): EGD 07/2015 normal Iron deficiency anemia, efacmvzbbem08/06/2010Mixed dojykslwzcrswk74/06/2010 Depression with wvyubgk1905/24/20091454Rijjtiyj53/03/2010HTN (hypertension)05/24/2009 Resolved Problems ProblemNoted DateDiagnosed DateResolved DateDepression, cpatccvrw52/25/2023 11/03/2023cute exacerbation of chronic obstructive pulmonary kbpvhwu6405/08/2021 04/17/2022Hypertensive heart disease with heart qdpkamx27 Anticoagulation monitoring, INR range 2.5-3.cute on chronic diastolic (congestive) heart bahxfkw09Mild persistent epcvvz45Reactive airway tcccuot07OSA AHI-11 positional, 10/24/2009, 04/01/1100Sleep apnea CHAPITO AHI-11 positional, Unspecified hypothyroidism Encounters DateTypeDepartmentCare LpkiIlgntnrsyrz27/11/2025Refill [facility] [address] [place] [address] Kandace Mckeon, Refill Request (Methyl Salicylate-Menthol topical cream)02/14/2025 2:30 PM FLIGHT COMMUNICATIONS OFFICER Nurse/Clinic Staff Only [facility] [address] [place] [address] Wound Check02/14/2025 1:25 PM CSTOffice Visit [facility] [address] [place] [address] Kandace Mckeon DO Medicare ANNUAL (subsequent) Visit (69 yr/); Iazgebtd30/24/7427Kexuew91/13/2025 Refill [facility] [address] [place] [address] Kandace Mckeon, DO Refill Request (Escitalopram Oxalate)01/27/2025 4:00 PM CSTAncillary Procedure [address] [address] 01/27/2025 3:45 PM CSTAncillary Procedure [address] [address] 01/27/2025 3:20 PM CSTOffice Visit [address] [address] Nitish Juárez MD Musculoskeletal Problem (Fell on 01/19/25, left lower leg and left foot swollen) 01/27/2025Telephone [address] [address] Kandace Mckeon, DO Lwlknli4801/27/20259500Dkbqkd13/22/2025Refill [address] [address] Kandace Mckeon, DO Refill Request (Rizatriptan)01/10/2025Refill [address] [address] Kandace Mckeon, DO Refill Request (Rizatriptan tab 5mg)12/28/2024 2:45 PM CDTAncillary Procedure [address] [address] 12/28/20249734Tgyfaw54/27/2025Orders Only [facility] Scanner 1 scan: (1-Ord) MENDEZ, XR CHEST 2V, Refill [address] [address] Kandace Mckeon, DO Refill Request (Glipizide, Eliquis)from Last 3 Months Immunizations ImmunizationAdministration DatesNext DueAMB Influenza, IIV4 PF (=>6 mos Flulaval,Fluzone Fluarix)(Flu Clinic Only)12/23/2019COVID-19 vaccine (Moderna 100mcg/0.5mL) PF, MDV05/04/2020,1COVID-19 vaccine (Pfizer-BioNTech 30mcg/0.3mL) PF, MDV1Influenza RIV4 (Age 18+ Years) PRESERV FREE 12/30/2018Influenza Virus, Ggwkpfzkrdp13/13/2023,12/30/2018,12/02/2012, 11/28/2010,01/04/2010Influenza, IIV3 (Age 6-35 mos)01/22/2012,11/28/2010 Influenza, IIV3 (Age >=3 years)12/02/2012,11/28/2010,01/04/2010Influenza, IIV4 12/12/2021,01/19/2021,12/24/2017,12/23/2016,12/13/2015,04/05/2015,04/15/2014, 12/07/2012,01/22/2012Influenza, Inactivated AIIV4 (Age 65+ Years) Preserv Free 01/03/2023Influenza, Inactivated IIV3 (Age 65+ Years) Preserv Free02/14/2025, 4Pneumococcal Conj 20-valent (Prevnar 20)2Pneumococcal Poly,23-Valent (Pneumovax)04/05/2015,01/25/2008Td (Age >=7 Years)05/24/2009Td, Preservative Free (age >= 7 Years)05/24/2009Tdap105/06/2021,01/22/2012Tuberculin (PPD)12/26/2010 Family History Medical HistoryRelationNameCommentsHeart DiseaseFatherHypertensionFatherOther MotherParkinsonsCancer-breastPaternal AuntCancer-ovarianNo Family History RelationNameStatusCommentsFatherMotherPaternal Aunt Social History Tobacco UseTypesPacks/DayYears UsedDateSmoking Tobacco: NeverCigarettesPassive Smoke Exposure: YesSmokeless Tobacco: Never Tobacco Cessation:Counseling Given: Yes Comments:roommate smokes and exposed for along time Alcohol UseStandard Drinks/WeekCommentsNot Currently0 (1 standard drink = 0.6 oz pure alcohol)occassionalPHQ-2AnswerDate RecordedPHQ-2 TOTAL YSEIK13404/16/2024 Social ConnectionsAnswerDate RecordedDo you often feel lonely or isolated from those around you?Financial Resource StrainAnswerDate Recorded Difficulty of Paying Living Uezksoii597/23/2025Difficulty of Paying Living Fozdenrz511/23/2025Food InsecurityAnswerDate RecordedDo you worry your food will run out before you are able to buy more?Transportation NeedsAnswer Date RecordedDoes lack of transportation keep you from medical appointments?1 10/13/2024Does lack of transportation keep you from work, meetings or getting things that you need?Housing StabilityAnswerDate RecordedWhat is your housing situation today?UtilitiesAnswerDate RecordedDo you have trouble paying for utilities (for example, heat, electricity, water, phone)?1 10/13/2024CommentsNoSex and Gender InformationValueDate RecordedSex Assigned at BirthNot on fileLegal GpwCfcjyl10/14/2013 5:26 AM CSTGender Identity Not on fileSexual OrientationNot on file Last Filed Vital Signs Vital SignReadingTime TakenCommentsBlood Dznogqgi214/7011 1:36 PM FLIGHT COMMUNICATIONS OFFICER Wwapl058302/14/2025 1:36 PM NHUWbjjftwshct73.6 ??C (97.9 ??F)02/14/2025 1:36 PM CSTRespiratory Psrd354307/31/2022 3:18 PM CDTOxygen Hgfzgycpfu63%02/14/2025 1:36 PM CSTInhaled Oxygen Concentration--Ljjhvi17.7 kg (200 lb)02/14/2025 1:36 PM FLIGHT COMMUNICATIONS OFFICER Bbnkqc912 cm (5' 4.17)06/12/2022 2:26 PM CDTBody Mass Index34.15006/12/2022 2:26 PM CDT Plan of Treatment Health MaintenanceDue DateLast DoneCommentsZoster (shingles) series for age 50+ (1 of 2)1976RSV vaccine for adults or (1 - Risk 50-74 years 1- dose series)2007BMI (ht and wt on same day) for age 18+06/13/2023 06/12/2022, 08/08/2021, 09/04/2020, Additional history existsCOVID-19 vaccine series (2024- season), 05/04/2020, 04/06/2020Mammogram for age 45-7506007/21/2024, 04/30/2023, 11/13/2021, Additional history existsFecal testing sDNA-FIT (Cologuard) for age 45- Depression screening for age 12+, 12/06/2024, 12/02/2024, Additional history existsMedicare Wellness for age 65+, 06/12/2022, 10/11/2015, Additional history existsLipids for age 45-7502/14/2030 02/14/2025, 04/16/2024, 04/23/2023, Additional history existsTetanus booster , 01/22/2012, 05/24/2009, Additional history existsHepatitis C screening for age 18-75Srinjgjzd60/17/2015Pneumococcal series for age 50+ Sfztrvyop38/13/2022, 04/05/2015, 01/25/2008DEXA/DXA scan for age 65+Completed 07/19/2024Influenza JzqntbvNvjzirvbj35/24/2025, 12/22/2023, 01/03/2023, Additional history existsHepatitis B series for 19+Aged OutNo longer eligible based on patient's age to complete this topic Goals GoalPatient Goal TypeAssociated ProblemsRecent ProgressPatient-Stated?Author BLOOD PRESSURE-MAINTAINS BP LESS THAN 130/80 Blood PressureNoDetert, Kandace Venus, DO Follow up with providers by 06/21/17 Reny Awad LSW Note: - appointment with dental provider by 06/21/17 - appointment for DM eye exam and new eyeglasses by 06/21/17 Healthcare Directive Reny Awad LSW Note: - work on completing healthcare directive by end of ACT episode Procedures Procedure NamePriorityDate/TimeAssociated DiagnosisCommentsGLUCOSE POCT [facility] ([facility])Cppzctv9502/14/2025 2:30 PM FLIGHT COMMUNICATIONS OFFICER Shakiness CBC WITH AUTO NMOOARCTIJFQIvkmqqo52/24/2025 1:29 PM FLIGHT COMMUNICATIONS OFFICER Other iron deficiency anemia CBC WITH AUTO YHHZQSFVUZDISihxakw17/24/2025 1:29 PM FLIGHT COMMUNICATIONS OFFICER Other iron deficiency anemia GRWCujivbe96/24/2025 1:29 PM FLIGHT COMMUNICATIONS OFFICER Hypothyroidism (acquired) KVLPONNLKakhbbr24/24/2025 1:29 PM FLIGHT COMMUNICATIONS OFFICER Other iron deficiency anemia BASIC METABOLIC MUEUPGcmmpxb82/24/2025 1:29 PM FLIGHT COMMUNICATIONS OFFICER Essential hypertension with goal blood pressure less than 130/80 LIPID PANEL W REFLEX MEASURED WZRWfqyzzb87/24/2025 1:29 PM FLIGHT COMMUNICATIONS OFFICER Essential hypertension with goal blood pressure less than 130/80 Mixed hyperlipidemia HEMOGLOBIN A1C MONITORING (POCT)Hsitsju5202/14/2025 1:29 PM FLIGHT COMMUNICATIONS OFFICER Uncontrolled type 2 diabetes mellitus with hyperglycemia (HC) XR FOOT 3 VIEWS UAXYLtbuyut56/06/2025 3:49 PM FLIGHT COMMUNICATIONS OFFICER Injury of left foot, initial encounter XR ANKLE 3 VIEWS NHRWHejdydn08/06/2025 3:48 PM FLIGHT COMMUNICATIONS OFFICER Injury of left ankle, initial encounter MR HEAD BRAIN MCIlsxcil79/07/2025 3:21 PM CDT Communicating hydrocephalus (HC) SCAN-RADIOLOGY VPYGLP4412/18/2024 12:00 AM CDT XR MAMMO CRSYTAL BILAT YXIWTPGapgavo70/30/2025 1:33 PM CDT Visit for screening mammogram XR DXA BONE DENSITY 2 SITES KYLWSGofqfea44/28/2025 1:06 PM CDT Post-menopausal SDNA-FIT EXTERNAL (COLOGUARD)Ufqiwbr5612/11/2022 2:15 PM CDT Screening for colon cancer ANTI LEFVonyfub53/17/2015 4:00 PM CDT Need for hepatitis C screening test from Last 3 Months or Most Recently Relevant to Health Maintenance Results * (ABNORMAL) POCT Glucose (02/14/2025 2:30 PM FLIGHT COMMUNICATIONS OFFICER)ComponentValueRef RangeTest MethodAnalysis TimePerformed AtPathologist SignaturePOCT GLUCOSE, BSKVUVQ117 (H)65 - 99 mg/dL02/14/2025 2:32 PM CSTREHABILITATION HOSPITAL OF SOUTHERN NEW MEXICOComment: Fasting Reference Interval is based on [place] [employer] recommendation Point of care glucose results may vary from other glucose methodologies. Any results exhibiting inconsistency with the patient's clinical status should be repeated using a different testing method. Specimen (Source)Anatomical Location / LateralityCollection Method / Volume Collection TimeReceived TimeBloodBLOOD SPECIMEN / UnknownQuest Collect / Unknown 02/14/2025 2:30 PM CST02/14/2025 2:30 PM FLIGHT COMMUNICATIONS OFFICER Narrative Authorizing ProviderResult TypeResult StatusTamara Venus Detert DOLABORATORYFinal ResultPerforming OrganizationAddressCity/State/ZIP CodePhone Number [facility] [address] [place] [address], [place] [phone] [facility] [address] [place] [address], [place] [phone] * (ABNORMAL) CBC WITH AUTO DIFFERENTIAL (02/14/2025 1:29 PM FLIGHT COMMUNICATIONS OFFICER)ComponentValue Ref RangeTest MethodAnalysis TimePerformed AtPathologist SignatureWHITE BLOOD CELL COUNT8.43.8 - 10.8 Thousand/uL02/15/2025 3:15 AM CSTQUEST DIAGNOSTICSRED BLOOD CELL COUNT4.563.80 - 5.10 Million/uL02/15/2025 3:15 AM CSTQUEST JKYCTNYQCWLKEDYOYACOK11.611.7 - 15.5 g/dL02/15/2025 3:15 AM CSTQUEST DIQGBZJTPEVWRCIVLLHDJ02.535.9 - 46.0 %02/15/2025 3:15 AM CST[facility]NO[facility] MCV91.081.4 - 101.7 fL02/15/2025 3:15 AM CSTQUEST XVNVEHRPSNZCTA79.827.0 - 33.0 pg02/15/2025 3:15 AM CSTQUEST ENKNBFJLDFMRGWV81.831.6 - 35.4 g/dL 02/15/2025 3:15 AM CSTQUEST DIAGNOSTICSComment: For adults, a slight decrease in the calculated MCHC value (in the range of 30 to 32 g/dL) is most likely not clinically significant; however, it should be interpreted with caution in correlation with other red cell parameters and the patient's clinical condition. RDW12.711.0 - 15.0 %02/15/2025 3:15 AM CSTQUEST DIAGNOSTICSPLATELET UVIAD715(H) 140 - 400 Thousand/uL02/15/2025 3:15 AM CSTQUEST HTGIHAJWLWZUDH33.37.5 - 12.5 fL 02/15/2025 3:15 AM CSTQUEST BRLNSVGJNIXCOWMLYLODIT93%02/15/2025 3:15 AM CSTQUEST JPRWFRWZANBJUDBICPWWSS18.0%02/15/2025 3:15 AM CSTQUEST DIAGNOSTICSMONOCYTES6.9% 02/15/2025 3:15 AM CSTQUEST DIAGNOSTICSEOSINOPHILS5.8%02/15/2025 3:15 AM FLIGHT COMMUNICATIONS OFFICER [facility]NOSTICSBASOPHILS2.3%02/15/2025 3:15 AM CSTQUEST DIAGNOSTICSABSOLUTE UEUDIALUFHL77335015 - 7800 cells/uL02/15/2025 3:15 AM [facility] ABSOLUTE VTUTHUPFHJC1995248 - 3900 cells/uL02/15/2025 3:15 AM CSTQUEST DIAGNOSTICSABSOLUTE MMDEZHISB977083 - 950 cells/uL02/15/2025 3:15 AM CSTQUEST DIAGNOSTICSABSOLUTE LICITWACKTB56660 - 500 cells/uL02/15/2025 3:15 AM CSTQUEST DIAGNOSTICSABSOLUTE EAKAPKNTN9875 - 200 cells/uL02/15/2025 3:15 AM CSTQUEST DIAGNOSTICSSpecimen (Source)Anatomical Location / LateralityCollection Method / VolumeCollection TimeReceived TimeBloodBLOOD SPECIMEN / UnknownQuest Collect / Pbacfhy2902/14/2025 1:29 PM CST02/14/2025 1:29 PM FLIGHT COMMUNICATIONS OFFICER Narrative Authorizing ProviderResult TypeResult StatusTamara Venus Detert DOHEMATOLOGYFinal ResultPerforming OrganizationAddressCity/State/ZIP CodePhone Number [facility] [address] [place] [address], * LIPID PANEL W REFLEX MEASURED LDL (02/14/2025 1:29 PM FLIGHT COMMUNICATIONS OFFICER)ComponentValueRef RangeTest MethodAnalysis TimePerformed AtPathologist SignatureCHOLESTEROL, ADIBB259<200 mg/dL02/15/2025 3:54 AM CSTQUEST QCOZRMXBLKXYGQMSRGDLBEAJ847<150 mg/dL02/15/2025 3:54 AM CSTQUEST DIAGNOSTICSHDL SITJYVDHQYS68> OR = 50 mg/dL 02/15/2025 3:54 AM CSTQUEST DIAGNOSTICSNON HDL QRXGCNBZJJY325<130 mg/dL (calc) 02/15/2025 3:54 AM CSTQUEST DIAGNOSTICSComment: For patients with diabetes plus 1 major ASCVD risk factor, treating to a non-HDL-C goal of <100 mg/dL (LDL-C of <70 mg/dL) is considered a therapeutic option. CHOL/HDLC RATIO3.2<5.0 (calc)02/15/2025 3:54 AM [facility] LDL-NTQXORXEYPL27px/dL (calc)02/15/2025 3:54 AM CSTQUEST DIAGNOSTICSComment: Reference range: <100 Desirable range <100 mg/dL for primary prevention; <70 mg/dL for patients with CHD or diabetic patients with > or = 2 CHD risk factors. LDL-C is now calculated using the Jonathan-Valero calculation, which is a validated novel method providing better accuracy than the Friedewald equation in the estimation of LDL-C. Jonathan SS et al. MORAIMA. 2013;310(19): 3465-1472 (http://education.TroopSwap.[employer]/faq/NXT554) Specimen (Source)Anatomical Location / LateralityCollection Method / Volume Collection TimeReceived TimeBloodBLOOD SPECIMEN / UnknownQuest Collect / Unknown 02/14/2025 1:29 PM CST02/14/2025 1:29 PM FLIGHT COMMUNICATIONS OFFICER Narrative Authorizing ProviderResult TypeResult StatusTamara Venus Detert DOCHEMISTRYFinal ResultPerforming OrganizationAddressty/State/ZIP CodePhone Number [facility] [address] [phone], * (ABNORMAL) TSH (02/14/2025 1:29 PM FLIGHT COMMUNICATIONS OFFICER)ComponentValueRef RangeTest Method Analysis TimePerformed AtPathologist SignatureTSH4.78(H)0.40 - 4.50 mIU/L 02/15/2025 2:47 AM CSTQUEST DIAGNOSTICSSpecimen (Source)Anatomical Location / LateralityCollection Method / VolumeCollection TimeReceived TimeBloodBLOOD SPECIMEN / UnknownQuest Collect / Fdesjon2002/14/2025 1:29 PM CST02/14/2025 1:29 PM FLIGHT COMMUNICATIONS OFFICER Narrative Authorizing ProviderResult TypeResult StatusTamara Venus Detert DOCHEMISTRYFinal ResultPerforming OrganizationAddMain Line Health/[facility]/ZIP CodePhone Number [facility] [address] [phone], * (ABNORMAL) HEMOGLOBIN A1C MONITORING (POCT) (02/14/2025 1:29 PM FLIGHT COMMUNICATIONS OFFICER)Component ValueRef RangeTest MethodAnalysis TimePerformed AtPathologist SignaturePOC HEMOGLOBIN A1C7.5(H)<6.0 % OF TOTAL HGB104/16/2024 1:44 PM [facility]Comment: Any point of care results exhibiting inconsistency with the patient's clinical status should be repeated using a different testing method. Specimen (Source)Anatomical Location / LateralityCollection Method / Volume Collection TimeReceived TimeBloodBLOOD SPECIMEN / UnknownQuest Collect / Unknown 02/14/2025 1:29 PM CST02/14/2025 1:29 PM FLIGHT COMMUNICATIONS OFFICER Narrative Authorizing ProviderResult TypeResult StatusTamara Venus Detert DOCHEMISTRYFinal ResultPerforming OrganizationAddressCity/State/ZIP CodePhone Number [facility] [address] [place] [address], [place] [phone] [facility] [address] [place] [address], [place] [phone] * FERRITIN (02/14/2025 1:29 PM FLIGHT COMMUNICATIONS OFFICER)ComponentValueRef RangeTest MethodAnalysis TimePerformed AtPathologist ArpjydlkiZWUAVINW9663 - 288 ng/mL02/15/2025 2:47 AM CSTQUEST DIAGNOSTICSSpecimen (Source)Anatomical Location / Laterality Collection Method / VolumeCollection TimeReceived TimeBloodBLOOD SPECIMEN / UnknownQuest Collect / Fmjxzwi2802/14/2025 1:29 PM CST02/14/2025 1:29 PM FLIGHT COMMUNICATIONS OFFICER Narrative Authorizing ProviderResult TypeResult StatusTamara Venus Detert DOCHEMISTRYFinal ResultPerforming OrganizationAddressCity/State/ZIP CodePhone Number [facility] [place] [id number] [place] [address], [place] [phone] * (ABNORMAL) BASIC METABOLIC PANEL (02/14/2025 1:29 PM FLIGHT COMMUNICATIONS OFFICER)ComponentValueRef RangeTest MethodAnalysis TimePerformed AtPathologist UfgavmzglIHPNHT594154 - 146 mmol/L104/17/2024 3:54 AM CSTQUEST DIAGNOSTICSPOTASSIUM4.43.5 - 5.3 mmol/L 02/15/2025 3:54 AM CSTQUEST DIAGNOSTICSCARBON DAODKDY8939 - 32 mmol/L 02/15/2025 3:54 AM CSTQUEST MAODLXJVSERTJNLMIE247(H)65 - 99 mg/dL02/15/2025 3:54 AM CSTQUEST DIAGNOSTICSComment: ? Fasting reference interval For someone without known diabetes, a glucose value >125 mg/dL indicates that they may have diabetes and this should be confirmed with a follow-up test. CALCIUM9.68.6 - 10.4 mg/dL11/ 3:54 AM CSTQUEST DIAGNOSTICSCREATININE1.02 0.50 - 1.05 mg/dL02/15/2025 3:54 AM CSTQUEST DIAGNOSTICSBUN/CREATININE RATIOSEE NOTE:6 - 22 (calc)02/15/2025 3:54 AM CSTQUEST DIAGNOSTICSComment: ?? Not Reported: BUN and Creatinine are within ?? reference range. ? EGFR60> OR = 60 mL/min/1.94d06202/15/2025 3:54 AM CSTQUEST DIAGNOSTICSUREA NITROGEN (BUN)107 - 25 mg/dL02/15/2025 3:54 AM CSTQUEST DIAGNOSTICSELECTROLYTE BFHBMJM74 - 17 mmol/L (calc)02/15/2025 3:54 AM CSTQUEST ORQCNCHVZHGGVEIGPUP65266 - 110 mmol/L104/17/2024 3:54 AM CSTQUEST DIAGNOSTICSSpecimen (Source)Anatomical Location / LateralityCollection Method / VolumeCollection TimeReceived TimeBlood BLOOD SPECIMEN / UnknownQuest Collect / Qbekvug4502/14/2025 1:29 PM CST02/14/2025 1:29 PM FLIGHT COMMUNICATIONS OFFICER Narrative Authorizing ProviderResult TypeResult StatusTamara Venus Detert DOCHEMISTRYFinal ResultPerforming OrganizationAddressCity/State/ZIP CodePhone Number [facility] [address] [phone], * XR FOOT 3 VIEWS LEFT (01/27/2025 3:49 PM FLIGHT COMMUNICATIONS OFFICER)Anatomical RegionLaterality ModalityFEET, FOOT LComputed RadiographySpecimen (Source)Anatomical Location / LateralityCollection Method / VolumeCollection TimeReceived Time01/27/2025 4:06 PM FLIGHT COMMUNICATIONS OFFICER Narrative 01/27/2025 4:06 PM FLIGHT COMMUNICATIONS OFFICER For Patients: As a result of the [...] a result of the s Act, medical imagingexams and procedure reports are [...] MD @ 01/27/2025 4:06:02 PM (Electronically Signed) Authorizing ProviderResult TypeResult StatusWilliam Naren Juárez MDGENERAL IMAGINGFinal Result * XR ANKLE 3 VIEWS LEFT (01/27/2025 3:48 PM FLIGHT COMMUNICATIONS OFFICER)Anatomical RegionLaterality ModalityANKLES, ANKLE LComputed RadiographySpecimen (Source)Anatomical Location / LateralityCollection Method / VolumeCollection TimeReceived Time 01/27/2025 4:04 PM FLIGHT COMMUNICATIONS OFFICER Narrative 01/27/2025 4:04 PM FLIGHT COMMUNICATIONS OFFICER For Patients: As a result of the s , medical imaging exams and procedure reports are [...] MD @ 01/27/2025 4:04:47 PM (Electronically Signed) Authorizing ProviderResult TypeResult StatusWilliam Naren Juárez MDGENERAL IMAGINGFinal Result * MR BRAIN WO CONTRAST (12/28/2024 3:21 PM CDT)Anatomical RegionLaterality ModalityBRAIN, HEADMagnetic ResonanceSpecimen (Source)Anatomical Location / LateralityCollection Method / VolumeCollection TimeReceived Time12/28/2024 5:44 PM CDT Narrative 12/28/2024 5:44 PM [...] the brain. Comparison: MRI brain 11/06/2023. Findings: Uqkp-dt-jzurrijm enlargement of the supratentorial ventricular system slightly out of proportion tothe degree of cerebral sulcal prominence, not significantly [...] 3. Mild chronic microvascular ischemic changes. 4. Cgca-jx-srpxneow enlargement of the supratentorial ventricular system slightly out of proportionto the degree of cerebral sulcal prominence may [...] the brain. Comparison: MRI brain 11/06/2023. Findings: Gepa-xn-pydbjpqk enlargement of the supratentorial ventricular systemslightly out [...] 3. Mild chronic microvascular ischemic changes. 4. Geux-zf-plkrrypv enlargement of the supratentorial ventricular systemslightly out of proportion to the degree of cerebral sulcal prominence maybe secondary to central predominant volume loss, though raises thepossibility of normal pressure hydrocephalus in the appropriate clinicalsetting. Dictated by Santiago Sebastian MD @ 12/28/2024 5:44:46 PM (Electronically Signed) Authorizing ProviderResult TypeResult StatusJorachele Rey Rob MDMRFinal Result * SCAN-RADIOLOGY REPORT (12/18/2024 12:00 AM CDT)Anatomical RegionLaterality ModalityOther Narrative Authorizing ProviderResult TypeResult StatusScannerOTHERFinal Result * XR MAMMO CRYSTAL BILAT SCREEN (07/21/2024 1:33 PM CDT)Anatomical RegionLaterality ModalityBREASTS, Breast Left, Breast RightBilateralMammographySpecimen (Source)Anatomical Location / LateralityCollection Method / VolumeCollection TimeReceived Time Impressions 07/23/2024 8:00 AM CDT There is no radiographic evidence for malignancy. Recommend annual mammograms. MAMMOGRAM ASSESSMENT: ??ACR 1 Negative [...] care provider. XR MAMMO CRYSTAL BILAT SCREEN [[id number]] CLINICAL HISTORY: ??This is an asymptomatic 69 y.o. patient. INDICATION FOR EXAM: Mammogram Screening. TECHNIQUE: CC and MLO views were obtained. ??This study was evaluated with the assistance of Computer-Aided Detection. Breast Tomosynthesis was used in interpretation. COMPARISON FILM: Yes 04/30/23 [employer] 11/13/21 [employer] FINDINGS: ??There are scattered areas of fibroglandular density. There are no dominant masses, suspicious micro calcifications or areas of architectural distortion. Authorizing ProviderResult TypeResult StatusTamara Venus Detert DOMAMMOFinal Result * (ABNORMAL) XR DXA BONE DENSITY 2 SITES AXIAL (07/19/2024 1:06 PM CDT) Anatomical RegionLateralityModalitySpine, HIPS, HIPL, HIPROtherSpecimen (Source)Anatomical Location / LateralityCollection Method / VolumeCollection TimeReceived Time Impressions 07/23/2024 4:36 PM CDT Osteopenia. RECOMMENDATIONS: [...] recommended in 3-5 years. Christina Flores PA-C [facility] 07/23/2024 Narrative 07/23/2024 4:36 PM CDT For Patients: Results are automatically released to your [facility]) account once available, in compliance with federal regulations. This means that you may see your results before your provider has had a chance to review them. Please allow 2-3 business days for your provider to comment on the results. XR DXA Bone Mineral Density (BMD) EXAM LOCATION: [address] [address] PATIENT NAME: Juni Metcalf DATE OF : 1955 EXAM DATE: 07/19/2024 REQUESTING PROVIDER: Kandace Mckeon DO GENDER AT : female HEIGHT: 5' 4.17 (06/12/2022) WEIGHT: ??208 lb (04/16/2024) MENOPAUSAL STATUS: Postmenopausal RACE/ETHNICITY: White [...] two scanners are made by the same glove tagger. PROCEDURE: Dual-energy x-ray absorptiometry performed with routine [...] 0.8 Z-Score: - 0.1 Change from prior: ??None RESULTS FEMUR Left femoral neck BMD: 0.864 g/cm2 T-Score: - 1.3 Z-Score: - 0.3 Change from prior: ??None Right femoral neck BMD: 0.828 g/cm2 T-Score: - 1.5 Z-Score: - 0.6 Change from prior: ??None Left hip BMD: 0.919 g/cm2 T-Score: - 0.7 Z-Score: - 0.1 Change from prior: ??None Right hip BMD: 0.884 g/cm2 T-Score: - 1.0 Z-Score: - 0.4 Change from prior: ??None WHO criteria: Normal: T-score at or above -1 SD Osteopenia: T-score between -1.1 and -2.4 SD Osteoporosis: T-score at or below -2.5 SD FRAX RISK CALCULATION (USED FOR OSTEOPENIA ONLY): 10-year probability of major osteoporotic fracture: 15.2%. 10-year probability of hip fracture: 1.5%. Authorizing ProviderResult TypeResult StatusTamara Venus Detert DODEXAFinal Result * SDNA-FIT EXTERNAL (COLOGUARD) (12/11/2022 2:15 PM CDT)ComponentValueRef Range Test MethodAnalysis TimePerformed AtPathologist SignatureNONINV COLON CA DNA+OCC BLD SCRN STL-MQOWsdydrwfGyvnclvb86/26/2023 9:02 PM CDTEXRoundscapes (CLIA #:[id number])Comment: NEGATIVE TEST RESULT. A negative Cologuard result indicates a low likelihood that a colorectal cancer (CRC) or advanced adenoma (adenomatous polyps with more advanced pre-malignant features) ??is present. The chance that a person with a negative Cologuard test has a colorectal cancer is less than 1in 1500 (negative predictive value >99.9%) or has an advanced adenoma is less than 5.3% (negative predictive value 94.7%). These data are based on a prospective cross-sectional study of 10,000individuals at average risk for colorectal cancer who were screened with both Cologuard and colonoscopy. (Shahriar Day al, N Engl J Med 2014;370(14):2514-8211) The normal value (reference range) for this assay is negative. COLOGUARD RE-SCREENING RECOMMENDATION: Periodic colorectal cancer screening is an important part ofpreventive healthcare for asymptomatic individuals at average risk for colorectal cancer. ??Following a negative Cologuard result, the [place] Cancer Society and U.S. Multi-Society Task Force screening guidelines recommend a Cologuard re-screening interval of 3 years. References: [place] Cancer Society Guideline for Colorectal Cancer Screening: https://www.cancer.or g/cancer/ytlxk-grycyi-rtwnzx/dqlpjbtrs-yfotwctqu-edwrqqi/acs-recommendations.htm reynaldo; Harish MOFFETT, Gold WARREN, Skyler MAHER, Colorectal Cancer Screening: Recommendations for Physicians and Patients from the U.S. Multi-Society Task Force on Colorectal Cancer Screening , Am J Gastroenterology 2017; 112:3428-3493. TEST DESCRIPTION: Composite algorithmic analysis of stool DNA-biomarkers with hemoglobin immunoassay. ?? Quantitative values of individual biomarkers are not reportable and are not associated with individual biomarker result reference ranges. Cologuard is intended for colorectal cancer screening ofadults of either sex, 45 years or older, [...] (Shahriar Day al, N Engl J Med 2014;370(14):0562-2929.) Cologuard may produce a false negative or false positive result (no colorectal cancer or precancerous polyp present at colonoscopy follow up). A negative Cologuard test result does not guarantee the absence of CRC or advanced adenoma (pre-cancer). The current Cologuard screening interval is every 3 years. ([place] Cancer Society and U.S. Multi-Society Task Force). Cologuard performance data in a 10,000 patient pivotal study using colonoscopy as the reference method can be accessed at the following location: www.Ideatory.com/results. Additional description of the Cologuard test process, warnings and precautions can be found at www.cologuard.com. Specimen (Source)Anatomical Location / LateralityCollection Method / Volume Collection TimeReceived TimeStool specimen (specimen) (Rectum)12/11/2022 2:15 PM CDT12/13/2022 6:23 PM CDT Narrative Authorizing ProviderResult TypeResult StatusTamara Venus Detert DOURINEFinal ResultPerforming OrganizationAddressCity/State/ZIP CodePhone Number [employer] (CLIA #:[id number]) [address] [place], [place] [address] [phone] * ANTI HCV [63543.2] (10/07/2014 4:00 PM CDT)ComponentValueRef RangeTest Method Analysis TimePerformed AtPathologist SignatureHEPATITIS C ANTIBODYNon-Reactive Non-Reactive 10/08/2014 4:38 PM CDTALM[facility] CO[facility] [employer]-CENTRAL LABORATORYSpecimen (Source)Anatomical Location / LateralityCollection Method / VolumeCollection TimeReceived TimeBlood specimen (specimen)BLOOD SPECIMEN / UnknownVenipuncture / Llfujky9210/07/2014 4:00 PM CDT10/07/2014 4:00 PM CDT Narrative [facility] - 10/08/2014 4:38 PM CDT Antibodies to HCV not detected; does not exclude the possibility of exposure to HCV. Authorizing ProviderResult TypeResult StatusTamara Venus Detert DOSEND OUTSFinal ResultPerforming OrganizationAddressCity/State/ZIP CodePhone Number [facility] [address] [place] [address], [place] from Last 3 Months or Most Recently Relevant to Health Maintenance Insurance * Guarantor: Juni Metcalf TypeRelation to PatientDate of BirthPhone Billing AddressPersonal/GcfdwpMwve1955 [place] [address] [place] [phone] * Guarantor: Dixon Juninicole Curtis TypeRelation to PatientDate of BirthPhone Billing AddressPersonal/FdilyoHtci1955 [place] [address] [place] [phone] Care Teams Team MemberRelationshipSpecialtyStart DateEnd Date Detert, Kandace Donovan DO [address] [place] [address] PCP - Sjsrkdb57/4/10 Parish Ruffin MD PulmonologyPulmonary Medicine12/04/11 Kwaku Wild MD [address] [place] [phone] Physical Medicine and Rehabilitation10/07/14 Kari Hunt, PhD, [address] [place] [address] PsychologistPsychology12/10/16
--- OUTSIDE RECORDS SUMMARY | 2025-03-08 04:10 | XMS_ITS | Clinical Summary ---
Author Organization [facility] Address [address] [place] [address] Care Team Providers Care E D Tech Name Role Phone Kandace Mckeon DO Primary Care Provider [phone] Allergies Active AllergyReactionsCriticalityNoted AsigSwckhsdvUvehwnvqisLumzrAbl62/29/2021 Other Reaction(s): sleep disturbance and fatigue sleep disturbance and fatigue. Medications MedicationSigDispense QuantityRefillsLast FilledStart DateEnd DateStatus acetaminophen (TYLENOL) 325 mg oral tablet TAKE 2 TABLETS BY MOUTH EVERY 4-6 HOURS NEEDED FOR PAIN5Active albuterol HFA (PROVENTIL;VENTOLIN HFA) 90 mcg/actuation Inhl inhaler Inhale 2 puffs every 4 (four) hours.5Active amitriptyline (ELAVIL) 50 mg oral tablet Take 1 tablet (50 mg) by mouth Daily.5Active amLODIPine (NORVASC) 10 mg oral tablet Take 1 tablet (10 mg) by mouth Daily.4Active ELIQUIS 5 mg oral tablet Take 1 tablet (5 mg) by mouth twice a day.5Active aspirin enteric coated 325 mg oral delayed release tablet Take 1 tablet (325 mg) by mouth Daily.5Active blood sugar diagnostic (BLOOD GLUCOSE TEST) Strip testing strips Dispense test strips covered by insurance Test 2 times per day.4Active budesonide, conc: 0.5mg/2mL, (PULMICORT) 0.5 mg/2 mL Inhl nebulizer suspension INHALE 1 AMPULE BY MOUTH VIA NEBULIZER TWICE DAILY11/15/2024tive Calcium-Cholecalciferol, D3, 500 mg-10 mcg (400 unit) oral Tab Take 1 tablet by mouth Daily.07/29/2024tive Cholecalciferol, Vitamin D3, 25 mcg (1,000 unit) oral chew tab Chew 1 tablet Daily.07/29/2024tive clotrimazole 1% (LOTRIMIN) 1 % Top cream cream APPLY TO AFFECTED AREA(S) TWICE DAILY NEEDED FOR YEAST RASH *PATIENT SELF-ADMINISTERS*10/11/2024tive escitalopram oxalate (LEXAPRO) 10 mg oral tablet Take 1.5 tablets (15 mg) by mouth Daily.11/10/2024tive Ferrous Sulfate 325 mg (65 mg iron) oral TbEC Take 1 tablet (325 mg) by mouth Daily.10/17/2024tive glipiZIDE (GLUCOTROL) 10 mg oral tablet Take 1 tablet (10 mg) by mouth.12/09/2024tive hydrOXYzine HCl (ATARAX) 25 mg oral tablet Take by mouth.10/09/2023ctive levothyroxine (SYNTHROID) 25 mcg oral tablet TAKE 1 TABLET BY MOUTH DAILY @NOON08/18/2024tive magnesium oxide (MAG-OX) 400 mg oral tablet Take 1 tablet (400 mg) by mouth.08/18/2024tive Methyl Salicylate-Menthol 30-10 % Top cream APPLY TOPICALLY 1 GRAM TOPICALLY EVERY 2 HOURS XAPCAV3002/28/2024ctive metoprolol succinate, XL, (TOPROL XL) 50 mg oral extended release tablet 24 HR Take by mouth.07/22/2024tive nitroGLYCERIN (NITROSTAT) 0.4 mg sublingual tablet Take 1 tablet (0.4 mg) under the tongue every 5 (five) minutes as needed. 05/13/2024tive omeprazole (PRILOSEC) 40 mg oral delayed release capsule Take 1 capsule (40 mg) by mouth Daily.08/18/2024tive rizatriptan (MAXALT) 5 mg oral tablet TAKE 1 TABLET BY MOUTH DAILY NEEDED *GIVE AT A MINIMUM OF 2 HRS APART*MAX OF 30MG PER 24 HRS*10/11/2024tive LUBRICANT EYE, PG-PEG 400, 0.4-0.3 % Opht Drop ophthalmic (EYE) drops Instill 1-2 drops into the eye.4Active simvastatin (ZOCOR) 20 mg oral tablet Take 1 tablet (20 mg) by mouth Daily.5Active Active Problems ProblemNoted DateDiagnosed Date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 nmwbzuyscq10/31/2024Chronic mltisahdhkmi01/25/2022Type 2 diabetes mellitus with hyperglycemia, without long-term current use of apoojjw40/28/2022Dependent personality vwhizdwn34/04/2021New onset atrial fustczukaycz19/19/2020Post traumatic stress disorder (PTSD)03/20/2017Controlled type 2 diabetes mellitus without complication, without long-term current use of clrwqtm3908/23/2015 Wfubwuvhcozs71/06/2016Mild persistent dhnhcl6106/28/2014Iron deficiency anemia, mhfegkqqfan02/06/2010Mixed ingylacfskbwpv94/06/2010Depression with anxiety 05/24/20093859Odypgwgypugt40/03/2015Illuuxyc76/03/2010 Encounters DateTypeDepartmentCare UgifNrqvqcsywig13/02/2025Results Follow-Up [facility] [address] [phone] Tracy Cloud MD PHOSPHORYLATED TAU 217 (PTAU-217), PLASMA ([facility]), PTAU-217/BETA AMYLOID 42 RATIO, PLASMA ([facility]), VITAMIN B12 ([facility])12/20/2024 1:00 PM CDTOffice Visit [facility] [address] [phone] Tracy Cloud MD 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 etiologies (HCC) (Primary Dx); CHAPITO (obstructive sleep apnea)from Last 3 Months Family History Medical HistoryRelationCommentsParkinson's DiseaseMotherRelationStatusComments Mother Social History Tobacco UseTypesPacks/DayYears UsedDateSmoking Tobacco: NeverSmokeless Tobacco: Never Tobacco Cessation:Counseling Given: Not Answered Alcohol UseStandard Drinks/WeekCommentsNever0 (1 standard drink = 0.6 oz pure alcohol)CommentsUnknownSex and Gender InformationValueDate RecordedSex Assigned at BirthNot on fileLegal WrvEjoyvh04/26/2025 1:47 PM CDTGender Identity Not on fileSexual OrientationNot on file Plan of Treatment Health MaintenanceDue DateLast HlkeVpmpzzasVwhccvokpvc1957Creatinine 1957Eye Exam1955 6518LxpN3H1957Microalbumin Q12 Month1957 Depression Follow-Up (PHQ-9)1958RSV Vaccines (1 - Risk 50-74 years 1-dose series)2007Yearly Review of HCD2007Zoster Vaccine (1 of 2)2007 Medicare Wellness VisitOVID-19 Vaccine ( season) , 05/04/2020, 04/06/2020Influenza Vaccine (#1)2024 12/22/2023, 01/03/2023, 12/12/2021, Additional history existsOsteoporosis Ptlkkdsqm34/Mammogram Hcvipyueh42/, 07/21/2024, 04/30/2023, Additional history existsAdult Tetanus Iqssyei7903/05/2032 03/05/2022, 01/22/2012, 05/24/2009Hepatitis C GvudduoefQvbchvktp25/17/2015 Pneumococcal 50+ OvycoDqmeysofv58/13/2022, 04/05/2015, 01/25/2008Meningococcal B VaccineAged OutNo longer eligible based on patient's age to complete this topic Procedures Procedure NamePriorityDate/TimeAssociated DiagnosisCommentsVITAMIN B12 ([facility]) Tcaqjad0512/20/2024 1:11 PM CDT 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 etiologies (HCC) PTAU-217/BETA AMYLOID 42 RATIO, PLASMA ([facility])Wkdfbfh1712/20/2024 1:10 PM CDT 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 etiologies (HCC) PHOSPHORYLATED TAU 217 (PTAU-217), PLASMA ([facility])Zntlnnj5612/20/2024 1:10 PM CDT 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 etiologies (HCC) from Last 3 Months Results * VITAMIN B12 ([facility]) (12/20/2024 1:11 PM CDT)ComponentValueRef RangeTest MethodAnalysis TimePerformed AtPathologist SignatureVitamin B12 ([facility])664 232 - 1,245 pg/mLL[facility] 1Specimen (Source)Anatomical Location / Laterality Collection Method / VolumeCollection TimeReceived SyewYddbg75/29/2025 1:11 PM CDT12/19/2024 11:00 PM CDT Narrative [facility] 1 - 12/21/2024 9:09 AM CDT Performed at: - [facility], [place], [place] ??[id number] Senior Etl Developer: León Dai MD, Phone: ??[phone] Authorizing ProviderResult TypeResult StatusJejuany Cloud MDLABCO ORDERABLESFinal ResultPerforming OrganizationAddressCity/State/ZIP CodePhone Number [facility] 1 * PTAU-217/BETA AMYLOID 42 RATIO, PLASMA ([facility]) (12/20/2024 1:10 PM CDT) ComponentValueRef RangeTest MethodAnalysis TimePerformed AtPathologist SignaturepTau-217 ([facility])0.117Not Estab. pg/mLL[facility] 1Comment: The reportable range of this assay is 0.041 to 10.000 pg/mL. The analytical measuring interval is 0.047 to 10.000 pg/mL. Beta-amyloid 42 ([facility])30.8Not Estab. pg/mLL[facility] 1Comment: The reportable range of this assay is 0.2 to 500.0 pg/mL. The analytical measuring interval is 0.8 to 500.0 pg/mL. pTau-217/AB42 Ratio ([facility])CommentLABC[facility]P 1Comment: 0.01743 Negative <0.25381 ? Indeterminate 0.62323-8.72018 Positive >0.58017 Interpretation ([facility])CommentL[facility] 1Comment: INDETERMINATE: A test result between 0.89027 and 0.29764 is an indeterminate result which is consistent with patients who are uncertain to have amyloid pathology associated with Alzheimer's disease. These patients should be considered for further testing. ?The Lumipulse(R) G pTau-217/Beta-Amyloid 42 Ratio, plasma is indicated for adult patients, aged 50 years and older, presenting at a specialized care setting with signs and symptoms of cognitive decline. The ratio value reported is calculated in accordance with guidance documented in the FDA-approved instructions for use (IFU) for this assay. Please consult the official IFU for more information. Specimen (Source)Anatomical Location / LateralityCollection Method / Volume Collection TimeReceived TervQsxke72/29/2025 1:10 PM CDT12/19/2024 11:00 PM CDT Narrative [facility] 1 - 12/23/2024 5:09 PM CDT Performed at: 01 - [facility] [address] [place] [address] ??[id number] Senior Etl Developer: Sheryl Davis MD, Phone: ??[phone] Authorizing ProviderResult TypeResult StatusJejuany Cloud MDLABC[facility] ORDERABLESFinal ResultPerforming OrganizationAddressCity/State/ZIP CodePhone Number [facility] 1 * PHOSPHORYLATED TAU 217 (PTAU-217), PLASMA ([facility]) (12/20/2024 1:10 PM CDT) ComponentValueRef RangeTest MethodAnalysis TimePerformed AtPathologist Signaturep-rpq673 ([facility])0.150.00 - 0.18 pg/mLL[facility] 1Comment: ?Clinical cutoff value was established using samples from a patient cohort characterized with amyloid PET data. A p-zjt845 value of >0.18 is a reported surrogate marker for beta amyloid pathology, and can be used to facilitate biological identification of Alzheimer's disease (1). p-feb311 has also been used in clinical trials to monitor patients on anti-amyloid therapy (2,3). ?Test performed by [employer] chemiluminescent enzyme immunoassay (CLEIA). Values obtained with different methods cannot be used interchangeably. The validated limit of quantification is 0.06 pg/mL. Assay detection limit is 0.03 pg/mL. Footnotes ([facility])CommentL[facility] 1Comment: 1. Jonathan Kim et al. Diagnostic Accuracy of a Plasma Phosphorylated Tau 217 Immunoassay for Alzheimer Disease Pathology. [facility] (2023). 2. Jonathan Kim, et al. Differential roles of A42/40, p-pnc385 and p-ktd498 for Alzheimer's trial selection and disease monitoring. Nature medicine 28.12 (2021): 4500-8942. 3. Joanne EVERETT, Nat M, Avery [place], et al. Association of [place] Treatment With Exploratory Plasma Biomarkers in Early Symptomatic Alzheimer Disease: A Secondary Analysis of the TRAILBLAZER-ALZ Randomized Clinical Trial. [facility]. 2021;79(12):8048-5516. Specimen (Source)Anatomical Location / LateralityCollection Method / Volume Collection TimeReceived WtbvGtxlk55/29/2025 1:10 PM CDT12/19/2024 11:00 PM CDT Narrative [facility] 1 - 12/23/2024 5:09 PM CDT Test(s) 181409-y-thh328 was developed and its performance characteristics determined by [facility]. It has not been cleared or approved by the Food and Drug Administration. Performed at: ??01 - [facility] [address] [place] [address] ??[phone] Senior Etl Developer: Sheryl Davis MD, Phone: ??[phone] Authorizing ProviderResult TypeResult StatusTracy Cloud MDL[facility] ORDERABLESFinal ResultPerforming OrganizationAddressCity/State/ZIP CodePhone Number [facility] 1 from Last 3 Months Insurance Care Teams Team MemberRelationshipSpecialtyStart DateEnd Date DeterKandace cerna DO [address] [place] [address] [facility]12/20/24
[2025-03-08 04:14] VITALS: BP 139/84; PULSE 80; RESP 18; TEMP 36.7; O2SAT 96; BMI 33.3
[2025-03-08 04:38] VITALS: BP 139/82; PULSE 62; RESP 16; O2SAT 92
--- NOTE | 2025-03-08 04:39 | CRLHL7_ITS ---
For Patients: As a result of the Century Cures Act, medical imaging exams and procedure reports are released immediately into your electronic medical record. You may view this report before your referring provider. If you have questions, please contact your health care provider. INDICATION: Chest pain COMPARISON: December 18, 2024 TECHNIQUE: PA and lateral views of the chest were acquired FINDINGS: TUBES AND LINES: None. HEART AND MEDIASTINUM: The heart size is normal. The mediastinal contour appears normal for patient age. LUNGS AND PLEURAL SPACES: Small to moderate hiatal hernia. This was present previously.The pleural spaces are unremarkable. OSSEOUS STRUCTURES: Age-appropriate appearance. No acute focal finding. IMPRESSION: No evidence of active pulmonary disease. Re-demonstration of a small to moderate-sized hiatal hernia. Dictated by Eusebio Monson MD @ 03/08/2025 5:18:26 AM (Electronically Signed)
--- NOTE | 2025-03-08 04:43 | ED.GENADULT ---
HPI - General Adult General Chief complaint: Chest Pain Stated complaint: chest pain Time Seen by Provider: 03/08/25 04:28 History of Present Illness HPI narrative: 69-year-old female who does make several similar visits to the ED each ear presents for evaluation of chest pain. She told the nurse and EMS teams that it had been present for about an hour but tells me that it has been intermittent all day. When I ask about exertional verses symptoms at rest, she seems confused by the question. Most recently, the chest pain was at rest and is currently not present at all. She thinks that it must have resolved on the way to the ED. She was given aspirin 325 mg by the EMS team. She has not had any nitroglycerin. She tells me that she does not have a history of coronary artery stents, bypass surgery or other coronary artery disease. I can not find any evidence in the chart to suggest otherwise. She does have multiple risk factors for coronary artery disease including diabetes, hypertension in family history she does also have a history of atrial fibrillation. She tells me that she is concerned about her blood pressure is well but cannot tell me how it has been running at her assisted living. Her blood pressure is quite reassuring here in the ED today. When I ask where the chest pain as she just points diffusely to the anterior bilateral chest area, does not no radiation. No shortness of breath but tells me that she has some upper respiratory infection symptoms, no fever. She has not had any vomiting. She tells me that she does have abdominal pain but then tells me that this is an ongoing thing and she has abdominal pain most days. And she also tells me that her feet are swollen. This is very similar to multiple previous ED visits which were reviewed as well. It looks as though she is currently anticoagulated on Eliquis for her atrial fibrillation, it sounds as though she has had a cardiac thrombus in the past while on Xarelto.. I am having some difficulty following the details of if that is still present or not. She notes no trauma or injury, no recent fall. She denies neurological changes. I do review the accompanying paperwork from her assisted living as well. Unfortunately, she is pretty vague in her descriptions, making interpretation in history difficult today. I do review her records and see that she has also had a ZIO patch performed within the last year as well. Past medical history notable for atrial fibrillation, prior cardiac thrombus, chronic pain disorder, hypertension, hyperlipidemia, asthma diabetes. Family history notable for coronary artery disease in father. Intolerance to duloxetine, nonsmoker. History of chronic kidney disease as well. ROS notable for the URI and chest symptoms as above, otherwise currently denies times 12 systems. Related Data Home Medications ?Medication ?Instructions ?Recorded ?Confirmed acetaminophen 325 mg tablet 650 mg PO Q6H PRN pain 12/27/21 03/08/25 albuterol sulfate 90 mcg/actuation 2 puff inhalation Q4H PRN 12/27/21 03/08/25 aerosol inhaler (Ventolin HFA) amitriptyline 50 mg tablet 50 mg PO HS 12/27/21 03/08/25 amlodipine 10 mg tablet 10 mg PO HS 12/27/21 03/08/25 antacid See Rx Instructions PO DAILY PRN 12/27/21 03/08/25 budesonide 0.5 mg/2 mL suspension 0.5 mg inhalation BID 12/27/21 03/08/25 for nebulization diphenhydramine HCl 25 mg capsule 25 mg PO Q8H PRN allergic symptoms 12/27/21 03/08/25 (Banophen) glipizide 5 mg tablet 5 mg PO DAILY 12/27/21 03/08/25 hydroxyzine HCl 25 mg tablet 25 mg PO HS PRN anxiety 12/27/21 03/08/25 levothyroxine 25 mcg tablet 25 mcg PO DAILY 12/27/21 03/08/25 metoprolol succinate 50 mg 50 mg PO DAILY 12/27/21 03/08/25 tablet,extended release 24 hr nitroglycerin 0.4 mg sublingual 0.4 mg sublingual Q5M PRN 12/27/21 03/08/25 tablet rizatriptan 5 mg tablet 5 mg PO DAILY PRN 12/27/21 03/08/25 simvastatin 20 mg tablet 20 mg PO HS 12/27/21 03/08/25 naproxen sodium 220 mg tablet (All 220 mg PO .once weekly PRN 01/08/22 03/08/25 Day Pain Relief) calcium carbonate 200 mg PO Q4H PRN 04/29/22 03/08/25 aspirin 325 mg tablet,delayed 325 mg PO DAILY 01/15/23 03/08/25 release escitalopram oxalate 5 mg tablet 5 mg PO DAILY 01/15/23 03/08/25 escitalopram oxalate 10 mg tablet 10 mg PO DAILY 05/12/23 03/08/25 lactulose 10 gram/15 mL oral ml PO 12/10/23 12/10/23 solution Previous Rx's ?Medication ?Instructions ?Recorded omeprazole 40 mg capsule,delayed 40 mg PO DAILY #14 caps 01/08/22 release apixaban 5 mg tablet (Eliquis) 5 mg PO BID #60 tabs 10/10/24 Allergies Allergy/AdvReac Type Severity Reaction Status Date / Time duloxetine AdvReac Mild sleep Verified 03/08/25 04:21 disturbance and fatigue [facility] Medical History PTSD (post-traumatic stress disorder) ?F43.10 - Post-traumatic stress disorder, unspecified (ICD-10) Atrial fibrillation ?I48.91 - Unspecified atrial fibrillation (ICD-10) 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 - Dependent personality disorder (ICD-10) Hypertensive heart disease with heart failure ?I11.0 - Hypertensive heart disease with heart failure (ICD-10) Clear cell carcinoma of left kidney ?C64.2 - Malignant neoplasm of left kidney, except renal pelvis (ICD-10) Diabetes mellitus with hyperglycemia, without long-term current use of insulin ?E11.65 - Type 2 diabetes mellitus with hyperglycemia (ICD-10) Chronic constipation ?K59.09 - Other constipation (ICD-10) CHAPITO (obstructive sleep apnea) ?G47.33 - Obstructive sleep apnea (adult) (pediatric) (ICD-10) Mild persistent asthma ?J45.30 - Mild persistent asthma, uncomplicated (ICD-10) Migraine ?G43.909 - Migraine, unspecified, not intractable, without status migrainosus (ICD-10) Hypertension ?I10 - Essential (primary) hypertension (ICD-10) Hiatal hernia ?K44.9 - Diaphragmatic hernia without obstruction or gangrene (ICD-10) GERD (gastroesophageal reflux disease) ?K21.9 - Gastro-esophageal reflux disease without esophagitis (ICD-10) Fibromyalgia ?M79.7 - Fibromyalgia (ICD-10) Depression ?F32.A - Depression, unspecified (ICD-10) Chronic fatigue syndrome ?G93.32 - Myalgic encephalomyelitis/chronic fatigue syndrome (ICD-10) Surgical History H/O: hysterectomy ?Z90.710 - Acquired absence of both cervix and uterus (ICD-10) History of cholecystectomy ?Z90.49 - Acquired absence of other specified parts of digestive tract (ICD-10) H/O section ?Z98.891 - History of uterine scar from previous surgery (ICD-10) S/P appendectomy ?Z90.49 - Acquired absence of other specified parts of digestive tract (ICD-10) Social History Smoking Status: Never smoker Do you use any of these nicotine containing products: None Second hand tobacco smoke exposure: No How often do you have a drink containing alcohol: never How often do you have six or more drinks on one occasion: Never AUDIT-C Alcohol total score: 0 Non-prescribed substance use: denies use service: No Exam Const: Vital Signs, click to edit/add: Vital Signs - 24 hr 03/08/25 04:14 03/08/25 04:38 Temperature 98.1 F Pulse Rate 62 Pulse Rate [Left P ulse Oximeter] 80 Respiratory Rate 18 16 Blood Pressure 139/82 Blood Pressure [Ri ght Upper Arm] 139/84 Pulse Oximetry 96 92 Oxygen Delivery Me thod Room Air Documenting provider has reviewed patient's vital signs: yes Common normals: no apparent distress and alert Other: Seems to be borderline functioning, but appears well-nourished and well-hydrated, friendly and talkative. Insight seems fair. Nontoxic. HENMT: Common normals: normocephalic, moist oral mucous membranes and oropharynx normal Head and scalp: normocephalic Face and sinus: normal facial exam Mouth: oral and palatal mucosa normal Eye: Common normals: conjunctivae normal General eye: normal appearance of both eyes Conjunctiva: conjunctiva(e) normal Neck & C-Spine: Common normals: full ROM and no lymphadenopathy General: normal visual inspection Resp: Common normals: normal respiratory effort, no use of accessory muscles and clear to auscultation bilaterally Effort & inspection: able to speak in complete sentences Auscultation: clear to auscultation bilaterally Cardio: Common normals: regular rate, regular rhythm, S1 normal heart sound, S2 normal heart sound and no murmurs Rate: regular rate Rhythm: regular rhythm Heart sounds: S1 normal and S2 normal GI: Common normals: Normal to inspection, nondistended, normoactive bowel sounds present, soft to palpation and no hepatosplenomegaly Palpation: soft and no hepatosplenomegaly Other: Diffusely tender to palpation, does not localize. No rebound tenderness or guarding. : Common normals: no CVA tenderness Bladder/kidney exam: no CVA tenderness Back & Pelvis: Common normals: no CVA tenderness Other: Moderate kyphosis but no obvious signs of injury to the spine. Extremity: Other: Trace dependent edema peers symmetric. No redness or tenderness to the calves. Neuro: Common normals: moves all extremities Sensorium/orientation: alert Speech: speech normal Psych: Appearance: grossly normal Attitude: calm Other: Mildly anxious, limited insight and judgment. Skin: Common normals: no rashes or lesions noted General skin exam: no rashes or lesions noted Course Course ED Course: 69-year-old female with a history of atrial fibrillation anticoagulated on Eliquis with intermittent chest pain for the past 24 hours, not currently present, sound Ng to be more at rest on description but patient without great insight. Initial EKG is reviewed, showing normal sinus rhythm with a rate of 64. No ischemic changes. Will obtain typical cardiac labs. Will also obtain GI labs due to abdominal tenderness on palpation though she is not complaining of these symptoms right now. I do question her insight in helping differentiate her symptoms. Because of the respiratory infection symptoms, will also obtain viral swabs. Has already been given aspirin 325 p.o. x1. Chest x-ray and deal architect. Await lab findings. Consider Cardiology consult based on findings. Differential diagnosis including acute coronary syndrome, arrhythmia, congestive heart failure, cardiac process, gastritis, pancreatitis, pulmonary embolism, upper respiratory infection. Reevaluation(s) Time of Reevaluation #1: 05:38 Reevaluation #1: Patient remains asymptomatic. Laboratory studies are all reassuring. No signs of heart failure, infiltrates or positive viral swabs. GI studies are stable and cardiac markers are negative. yard hand revealed the patient has consistently been in sinus rhythm for us. I do not think that she is having an acute cardiac or life-threatening event today. Counseled patient that this could be related to her hiatal hernia. We discussed this condition. It looks as though she has been on omeprazole in the past but is not currently using. I will give her a dose of famotidine here in the ER and have advised her to use this [id number] on an empty stomach daily if she is symptomatic. Alarm symptoms reviewed that would warrant re-evaluation in the emergency room. She verbalizes understanding and agreement. Vital Signs Vital signs: Initial Vital Signs Temperature 98.1 F 03/08/25 04:14 Temperature Source Temporal Artery Scan 03/08/25 04:14 Pulse Rate 80 03/08/25 04:14 Pulse Rhythm Regular 03/08/25 04:14 Respiratory Rate 18 03/08/25 04:14 Blood Pressure 139/84 03/08/25 04:14 Blood Pressure Mean 102 03/08/25 04:14 Blood Pressure Position Semi-Fowlers 03/08/25 04:14 Pulse Oximetry 96 03/08/25 04:14 Oxygen Delivery Method Room Air 03/08/25 04:14 Vital Signs Temperature 98.1 F 03/08/25 04:14 Pulse Rate 80 03/08/25 04:14 Respiratory Rate 18 03/08/25 04:14 Blood Pressure 139/84 03/08/25 04:14 Pulse Oximetry 96 03/08/25 04:14 Oxygen Delivery Method Room Air 03/08/25 04:14 Temperature 98.1 F 03/08/25 04:14 Pulse Rate 62 03/08/25 04:38 Respiratory Rate 16 03/08/25 04:38 Blood Pressure 139/82 03/08/25 04:38 Pulse Oximetry 92 03/08/25 04:38 Oxygen Delivery Method Room Air 03/08/25 04:14 Medical Decision Making Lab Data Lab results reviewed: Yes I reviewed the patient's lab results Lab results narrative: Reassuring labs. Normal troponins, normal electrolytes, stable renal function, no elevated inflammatory markers, biliary obstruction or signs of heart failure. Labs: Lab Results 03/08/25 Range/Units 04:20 WBC 8.71 (4.50-11.00) K/uL RBC 4.41 (4.00-5.20) m/uL Hgb 12.9 (12.0-16.0) gm/dL Hct 39.9 (33.0-51.0) % MCV 91 (80-100) fL MCH 29 (26-34) pg MCHC 32 (32-36) gm/dL RDW Coeff of Anamika 12.5 (11.5-15.5) % Plt Count 479 H (140-440) K/uL Neut % (Auto) 44.4 (42.0-72.0) % Lymph % (Auto) 40.5 (20-44) % [place] % (Auto) 7.1 (0.0-11.0) % Eos % (Auto) 6.2 (0.0-7.0) % Baso % (Auto) 1.7 (0.0-3.0) % Neut # (Auto) 3.86 (1.7-7.0) K/uL Lymph # (Auto) 3.53 H (0.90-2.90) K/uL [place] # (Auto) 0.60 (0.00-0.90) K/UL Eos # (Auto) 0.54 H (0.00-0.50) K/uL Baso # (Auto) 0.15 (0.00-0.30) K/uL Abs Immat Gran (auto) 0.01 (0.00-0.30) K/uL Imm/Tot Granulo (auto) 0.1 % INR 1.18 H (0.91-1.10) Sodium 136 (135-149) mmol/L Potassium 4.1 (3.6-5.1) mmol/L Chloride 101 (96-114) mmol/L Carbon Dioxide 27 (20-32) mmol/L Anion Gap 8 (7-15) mEq/L BUN 17 (7-30) mg/dL Creatinine 0.8 (0.5-1.5) mg/dL Estimated Creat Clear 49.12 Estimated GFR 81 ml/min Glucose 187 H (60-115) mg/dL Lactate 1.6 (0.5-1.9) mmol/L Calcium 9.1 (8.4-10.6) mg/dL Total Bilirubin 0.3 (0.1-1.5) mg/dL AST 28 (12-35) U/L ALT 27 (4-35) U/L Alkaline Phosphatase 83 (40-150) U/L Troponin I < 0.01 (0.01-0.04) ng/mL POC Troponin I High Sensi 3.1 (2.9-13.0) pg/mL C-Reactive Protein 0.6 (0.5-1.0) mg/dL NT-Pro-B Natriuret Pep 388 H (See Note) pg/mL Total Protein 7.7 (6.0-8.3) g/dL Albumin 4.3 (3.3-5.0) g/dL Lipase 37 (23-300) U/L SARS-CoV-2 (PCR) Negative SARS-CoV-2 (Negative) Influenza Type A (PCR) Negative PCR FLU A (Negative) Influenza Type B (PCR) Negative PCR FLU B (Negative) RSV (PCR) Negative PCR RSV (Negative) Imaging Data Chest x-ray: Attestation: I have reviewed the pertinent imaging results. My impression: Normal chest x-ray. No pleural effusions, consolidations, cardiomegaly or vascular infiltrates Radiologist's impression: IMPRESSION: No evidence of active pulmonary disease. Re-demonstration of a small to moderate-sized hiatal hernia. Dictated by Eusebio Monson MD @ 03/08/2025 5:18:26 AM ECG Data Attestation: I personally reviewed and interpreted this ECG as follows: Prior ECG tracings: available for review (Multiple prior comparison this year. All appear similar) Interpretation: Sinus rhythm with a rate of 64. Normal intervals and axis. No significant ST or T-wave abnormalities. Good R-wave progression. Nice looking EKG Discharge Plan Discharge Clinical Impression: Non-cardiac chest pain Patient Disposition: Home w/ Parent or Adult Condition: Improved Instructions: Noncardiac Chest Pain (ED) Additional Instructions: As we discussed, there does not seem to be any changes with your heart today, this is good news. I do suspect that the pain you are having is related to your hiatal hernia. This is irritation in the top part of the stomach that slides up into the chest and causes discomfort. You were given an [id number] medication called famotidine. Hopefully this helps with her symptoms. It would be safe for you to take 1 pill every day, preferably on an empty stomach. If you have persistent symptoms, consider discussing this with her primary care provider to determine a different long-term plan but there is nothing that needs to be done at this time. You will continue the rest of your medications as prescribed. Your blood pressure was well controlled here in the emergency room and I do not think any changes need to be made to this plan either. Activity Level: No Restrictions Discharge Diet: Regular Prescriptions: No Action lactulose 10 gram/15 mL solution PO acetaminophen 325 mg tablet 650 mg PO Q6H PRN (Reason: pain) amitriptyline 50 mg tablet 50 mg PO HS amlodipine 10 mg tablet 10 mg PO HS budesonide 0.5 mg/2 mL suspension for nebulization 0.5 mg inhalation BID glipizide 5 mg tablet 5 mg PO DAILY levothyroxine 25 mcg tablet 25 mcg PO DAILY metoprolol succinate 50 mg tablet extended release 24 hr 50 mg PO DAILY simvastatin 20 mg tablet 20 mg PO HS antacid suspension See Rx Instructions PO DAILY PRN Rx Instructions: 15-30ml orally daily PRN; rizatriptan 5 mg tablet 5 mg PO DAILY PRN Rx Instructions: may repeat once after 2 hours albuterol sulfate [Ventolin HFA] 90 mcg/actuation HFA aerosol inhaler 2 puff INHALATION Q4H PRN diphenhydramine HCl [Banophen] 25 mg capsule 25 mg PO Q8H PRN (Reason: allergic symptoms) Rx Instructions: 1-2 caps prn hydroxyzine HCl 25 mg tablet 25 mg PO HS PRN (Reason: anxiety) nitroglycerin 0.4 mg tablet, sublingual 0.4 mg sublingual Q5M PRN Rx Instructions: max 3 tabs within 15 minutes naproxen sodium [All Day Pain Relief] 220 mg tablet 220 mg PO .once weekly PRN omeprazole 40 mg capsule,delayed release(DR/EC) 40 mg PO DAILY Qty: 14 0RF aspirin 325 mg tablet,delayed release (DR/EC) 325 mg PO DAILY escitalopram oxalate 5 mg tablet 5 mg PO DAILY escitalopram oxalate 10 mg tablet 10 mg PO DAILY calcium carbonate 200 mg calcium (500 mg) tablet,chewable 200 mg PO Q4H PRN Rx Instructions: Chew 215 mg of calcium daily as needed for indigestion or heartburn. Eliquis 5 mg tablet 5 mg PO BID Qty: 60 0RF Follow Up/Referrals: Kandace Mckeon DO [Primary Care Provider, Family Practice] [facility]: [facility] Info Inst[facility]
[2025-03-08 04:47] LABS: Lactate* 1.6 mmol/L (0.5-1.9)
[2025-03-08 04:48] LABS: Hematocrit* 39.9 % (33.0-51.0); Hemoglobin* 12.9 gm/dL (12.0-16.0); Immature Granulocytes Abs Auto 0.01 K/uL (0.00-0.30); Immature Granulocytes Pct Auto 0.1 %; Lymphocytes Absolute Auto 3.53 K/uL (0.90-2.90); Mean Corpuscular HGB Conc 32 gm/dL (32-36); Mean Corpuscular Hemoglobin 29 pg (26-34); Mean Corpuscular Volume 91 fL (80-100); RDW Coefficient of Variation % 12.5 % (11.5-15.5); Red Blood Count* 4.41 m/uL (4.00-5.20); White Blood Count* 8.71 K/uL (4.50-11.00)
[2025-03-08 04:51] LABS: Slide Review Reflex No
[2025-03-08 05:09] LABS: Albumin* 4.3 g/dL (3.3-5.0); Chloride* 101 mmol/L (96-114)
[2025-03-08 05:10] LABS: Potassium* 4.1 mmol/L (3.6-5.1); Sodium* 136 mmol/L (135-149)
--- OUTSIDE RECORDS SUMMARY | 2025-03-08 05:10 | XMS_ITS | CCD ---
Author Organization Unknown Care Team Providers Care Sourcing Consultant Name Role Phone [employer], [place] Primary Care Provider Unava ilable Unavailable Chronic Care Management Unavaila ble Summary Purpose [employer] Insurance Providers Payer name Policy type / Coverage type Covered green party ID Effective Begin Date Effective End Date Medicare [place] Medicare Part B [id number] Unknown Unknown [employer] Medicare Part B [id number] Unknown Unknown Family History Family History data [...]
--- OUTSIDE RECORDS SUMMARY | 2025-03-08 05:10 | XMS_ITS | CCD ---
Author Organization Unknown Care Team Providers Care Supply Requirements Officer Name Role Phone [employer], [place] Primary Care Provider Unava ilable Unavailable Chronic Care Management Unavaila ble Summary Purpose [employer] Insurance Providers Payer name Policy type / Coverage type Covered green party ID Effective Begin Date Effective End Date Medicare [place] Medicare Part B [id number] Unknown Unknown [employer] Medicare Part B [id number] Unknown Unknown Family History Family History data [...]
[2025-03-08 05:12] LABS: Alanine Aminotransferase* 27 U/L (4-35); Aspartate Amino Transferase* 28 U/L (12-35); Blood Urea Nitrogen* 17 mg/dL (7-30); Creatinine* 0.8 mg/dL (0.5-1.5); Est. Creatinine Clearance* 49.12; Estimated Glomerular Filt Rate 81 ml/min; INR 1.18 (0.91-1.10); Prothrombin Time 15.9 Seconds
[2025-03-08 05:13] LABS: Alkaline Phosphatase* 83 U/L (40-150); Anion Gap 8 mEq/L (7-15); Bilirubin Total* 0.3 mg/dL (0.1-1.5); Calcium* 9.1 mg/dL (8.4-10.6); Carbon Dioxide* 27 mmol/L (20-32); Glucose* 187 mg/dL (60-115); Total Protein* 7.7 g/dL (6.0-8.3)
[2025-03-08 05:27] LABS: PCR FLU A Negative PCR FLU A (Negative); PCR FLU B Negative PCR FLU B (Negative); PCR RSV Negative PCR RSV (Negative); SARS PCR* Negative SARS-CoV-2 (Negative)
[2025-03-08 05:30] LABS: NT Pro B Type NatriureticPept* 388 pg/mL (See Note)
[2025-03-08] MEDS: FAMOTIDINE 20 MG TABLET PO (05:41)
== END 2025-03-08 05:57 | disposition home or self-care (01) ==
PROVIDERS: Emergency Provider Family Medicine; PCP Family Medicine
DX: R07.89 Other chest pain (principal)
CPT/HCPCS: 36415; 71046; 80053; 83605; 83690; 83880; 84484; 85025; 85610; 86140; 87631; 99284; A9270